=== PATIENT | female | born 1990 | race Caucasian/White ===

== ENCOUNTER 2025-03-29 13:15 | Outpatient (RCR) | payer MEDICAID, SELFPAY ==
[2025-03-14 10:22] VITALS: RESP 16; TEMP 36.6; BMI 18.8
--- NOTE | 2025-03-14 12:22 | PCM.WC.HP ---
History of Present Illness Date of Service: 03/14/25 Chief Complaint: Follow-up on an old coccyx wound History of Wound: Adopted mother states that she is nonverbal nonmobile 34-year-old white female with a long-term opening in her coccyx gluteal fold opening she does have Myles to CD at this time. The area has depth and is no tunneling but does come out on top near her perineal area. Adopted mom states she has been on lots of antibiotics and that there is redness around the wound and she feels it is infected again and would like it rechecked the wound has not really been checked by a doctor for about 2 months when she lost her regular doctor down by their house. Mother and newspaper vendor take care of her 22/03 she does have a low air mattress she does have padding for her seat cushions when she is up in a wheelchair though she is not able to hold herself up at all. Skin turgor looks good she does have history of malnutrition and of iron deficient anemia. Adoptive mom was here mostly for a second opinion because he is getting upset with down by her house the wound care center at that point he has not really done anything and they just keep putting topicals on her. Today we will do wound cultures and also start packing with some Dakin's and see if that helps with the wound but eventually she is cannot probably need a wound VAC. [facility], [facility] Medical History (Updated 03/14/25 @ 12:38 by Jaimee Marshall NP, [facility]) Quadriplegic infantile cerebral palsy Home Medications ?Medication ?Instructions ?Recorded ?Last Taken ?Type acetaminophen 325 mg tablet (Aphen) 325 mg PO Q6H PRN fever or pain 03/14/25 Unknown History albuterol (refill) 90 mcg inhalation 03/14/25 Unknown History mcg/actuation aerosol inhaler amikacin 1,000 mg/4 mL injection 250 mg IM Q12H 03/14/25 Unknown History solution baclofen 50 mcg/mL intrathecal 50 mcg intrathecal Q24H 03/14/25 Unknown History solution diazepam (Valtoco) 15 mg intranasal Q4H 03/14/25 Unknown History diazepam 2 mg tablet 2 mg PO DAILY 03/14/25 Unknown History doxycycline monohydrate 100 mg 100 mg PO BID 03/14/25 Unknown History capsule fluconazole 100 mg tablet 100 mg PO DAILY 03/14/25 Unknown History (Diflucan) fluticasone propionate 50 2 spray intranasal DAILY PRN nasal 03/14/25 Unknown History mcg/actuation nasal congestion spray,suspension (Aller-Kenny) ibuprofen 200 mg tablet (IBU-200) 200 mg PO Q8H 03/14/25 Unknown History levetiracetam 100 mg/mL oral PO 03/14/25 Unknown History solution loratadine 10 mg tablet 10 mg PO DAILY 03/14/25 Unknown History medroxyprogesterone 150 mg/mL 150 mg IM QMONTH 03/14/25 Unknown History intramuscular suspension (Depo-Provera) omeprazole 40 mg capsule,delayed 40 mg PO DAILY 03/14/25 Unknown History release polyethylene glycol 3350 17 17 g PO DAILY 03/14/25 Unknown History gram/dose oral powder (ClearLax) promethazine 12.5 mg rectal 12.5 mg [place] Q6H nausea 03/14/25 Unknown History suppository singular 03/14/25 Unknown History tramadol 50 mg tablet 50 mg PO DAILY 03/14/25 Unknown History Allergy/AdvReac Type Severity Reaction Status Date / Time Penicillins (PCN) AdvReac Blisters Verified 03/14/25 10:49 ROS Constitutional Constitutional: Reports systems reviewed and no addt'l complaints, except as documented Eyes Eyes: Reports systems reviewed and no addt'l complaints, except as documented ENT HEENT: Reports systems reviewed and no addt'l complaints, except as documented Cardiovascular Cardiovascular: Reports systems reviewed and no addt'l complaints, except as documented Respiratory/Chest Respiratory/Chest: Reports systems reviewed and no addt'l complaints, except as documented Gastrointestinal Gastrointestinal: Reports systems reviewed and no addt'l complaints, except as documented Genitourinary Genitourinary: Reports systems reviewed and no addt'l complaints, except as documented Musculoskeletal Musculoskeletal: Reports systems reviewed and no addt'l complaints, except as documented Integumentary Integumentary: Reports wounds and other Details: Open wound in the gluteal fold coccyx area that kind of wraps around and comes up near her perineum Neurologic Neurologic: Reports systems reviewed and no addt'l complaints, except as documented Psychiatric Psychiatric: Reports systems reviewed and no addt'l complaints, except as documented Endocrine Endocrinology: Reports systems reviewed and no addt'l complaints, except as documented Hematologic/Lymphatic Hematologic/Lymphatic: Reports systems reviewed and no addt'l complaints, except as documented Allergic/Immunologic Allergic/Immunologic: Reports systems reviewed and no addt'l complaints, except as documented Vital Signs Vital Signs Vital Signs: 03/14/25 10:22 Temperature 97.8 F Temperature Source Temporal Respiratory Rate 16 Weight Weight: 75 lb 5.547 oz Body Mass Index (BMI) 18.8 Physical Exam Const oriented x3 General Appearance: cooperative Exam Limitations: no limitations HEENT normocephalic Neck General: normal visual inspection Resp normal respiratory effort Effort and Inspection: able to speak in complete sentences Auscultation: clear to auscultation bilaterally Cardio regular rate and regular rhythm Palpation: normal PMI Rate: regular rate Rhythm: regular rhythm GI Palpation: soft and no hepatosplenomegaly external exam normal Back/Spine Cervical Spine: cervical ROM normal Thoracic Spine / Upper Back: normal to inspection Lumbar Spine / Lower Back: normal to inspection Pelvis: buttocks abnormal right (Open wound in the right coccyx gluteal fold area) Extremity General Extremity: normal exam except as noted Skin Wounds: wounds noted Wound Narrative: Open wound with depth in the right gluteal area Debridement Note Debridement Note Wound debrided: Decubitus ulcer right gluteal Laterality: Right Wound Grade/Stage: Stage IV Type of Debridement: Excisional debridement Anesthesia Used: 5% Lidocaine Gel Depth: in the subcutaneous layer and to muscle Percentage of wound debrided: 100 Instrument Used: 5mm curette Tissue Removed: Fibrin Severity: Fat Layer Exposed Amount of bleeding with debridement: Mild Bleeding Controlled with: Compression and gauze Patient tolerated procedure: Patient tolerated procedure well Post-Debridement Measurements and Additional Note: Post-Debridement Measurements/Treatment - Nurse 1 - General Ulcer Assessment Start: 03/14/25 10:21 Freq: Status: Active Protocol: ROYER Activity Type Activity Date Activity User E-sign Co-sign Detail Recorded Client Recorded Date Recorded By Document 03/14/25 10:22 LORI [id number] 03/14/25 10:44 DL 03/14/25 10:22 - Today's Visit Information Type of service Initial Visit Arrival Mode Wheelchair Transfer Assistance Manual Transfer Assist (Other) x2 Patient Identification Verified (Name & Yes ) Patient Requires Transmission-Based No Precautions Height and Weight Height 4 ft 5 in Weight 75 lb 5.547 oz Weight in Pounds 75.3 lbs Body Mass Index (BMI) 18.8 BMI Classification Normal Vital Signs Temperature (97.8 F-99.1 F) 97.8 F Temperature Source Temporal Respiratory Rate (12-18) 16 Respiratory rate source Observation Pain Scale: 0-10 Numeric Is Patient Pain Free? Yes Communication Assessment Preferred language None Able to Read No: NonVerbal Able to Write No: NonVerbal Caregiver Communication Skills Unable To Impairment Follow Commands Teaching Assessment Preferences Verbal,Written, Demonstration Barriers to Learning None Readiness To Learn Poor Willingness to Engage in Self Management Low Activies Readiness to Engage in Self Management Low Activities Anxiety Level Calm Cooperation Cooperative Perception Coherent Interest in Health Problem Asks Questions Education Importance Acknowledges Need Does Patient Smoke tobacco or other No substances Is Patient Diabetic No WC - Nurse 1 - General Ulcer Measurement Start: 03/14/25 10:21 Freq: Status: Active Protocol: Activity Type Activity Date Activity User E-sign Co-sign Detail Recorded Client Recorded Date Recorded By Document 03/14/25 10:22 DL [id number] 03/14/25 10:44 DL 03/14/25 10:22 Wound Center Nurse 1 #1 R Buttocks Cluster -Current Size (cm) - Length 6.6 -Current Size (cm) - Width 4.2 -Current Size (cm) - Depth 1.8 -Total Square Cm 27.72 -Photo Taken Yes -Exudate Amt Medium -Exudate Type Serosanguineous -Wound Margin Distinct, Outline Attached -Granulation Amt Large (67-100%) -Granulation Quality [place] -Necrosis Amt None Present (0 %) -Necrotic Tissue Type Adherent Slough -Structure Exposed N/A -Texture (Makenzie-wound Skin Appearance) Scarring,Rash -Moisture (Makenzie-wound Skin Appearance) No Abnormality -Color (Makenzie-wound Skin Appearance) No Abnormality -Temperature (Makenzie-wound Skin No Abnormality Appearance) (Pt Warm) -Ulcer Cleansing Soap and Water -Foul Odor after Cleansing No -Anesthetic Used 5% Lidocaine Gel - Nurse 2 - General Ulcer CM Notes Start: 03/14/25 10:21 Freq: Status: Active Protocol: Activity Type Activity Date Activity User E-sign Co-sign Detail Recorded Client Recorded Date Recorded By Document 03/14/25 11:06 [facility] [id number] 03/14/25 11:24 [facility] 03/14/25 11:06 Wound Center Nurse 2 -Time 11:06 -Correct Patient Yes -Correct Side, Site, Position Yes -Correct Procedure Yes -Procedure Performed Yes -Type of Procedure Debridement -Clinical Debridement Muscle / Fascia -Tissue Removed Muscle,Fascia -Post Debridement (cm) - Length 5.5 -Post Debridement (cm) - Width 7.5 -Post Debridement (cm) - Depth 2.0 -Total Square (Post) (cm) 41.25 -Area of Debridement (cm) - Length 5.5 -Area of Debridement (cm) - Width 7.5 -Total Square (Area) (cm) 41.25 -Wound/Ulcer Outcome Not Healed -Ulcer Cleansing Rinsed/ Irrigated with Saline -Foul Odor after Cleansing No -Bioengineered Tissue No -Bleeding Controlled with Pressure -Treatment Response Procedure Tolerated Well -Debridement - Muscle / Fascia, 1st Yes 20sq cm -Debridement, Muscle/Fascia, ea addt'l 1 20sq cm or part thereof Pain Scale: 0-10 Numeric Is Patient Pain Free? Yes WC - Nurse 3 - General Ulcer D/C NN Start: 03/14/25 10:21 Freq: Status: Active Protocol: Activity Type Activity Date Activity User E-sign Co-sign Detail Recorded Client Recorded Date Recorded By Document 03/14/25 11:40 ML [id number] 03/14/25 11:42 ML 03/14/25 11:40 Wound Care Center Nurse 3 #1 R Buttocks Cluster -Ulcer Cleansing Soap and Water -Primary Dressing Applied Aquacel Extra, Hysept -Other Dressing dakins 0.25 -Aquacel Extra 1 -Hysept 1 Pain Scale: 0-10 Numeric Is Patient Pain Free? Yes Lab / Micro Data 03/14/25 12:18 03/14/25 12:18 Assessment/Plan Assessment/Plan (1) Decubitus ulcer of right buttock, stage 4: CODE(S): L89.314 - Pressure ulcer of right buttock, stage 4 PLAN: Wash area with antibacterial soap and water and pat dry and then pack wound with Dakin soaked gauze firmly and then on the outside open area she is to use Aquacel extra moistened with Adaptic over top and an absorbent dressing such as ABD this will be done twice a day. Also given samples of Blayne to try and see if she tolerates that and her tube feeds for the increase in protein Lab work will obtain lab work to check for iron levels her complete blood count a comprehensive metabolic profile prealbumin Follow-up in 1 week we will go over everything and see how things are going. (2) Quadriplegic infantile cerebral palsy: CODE(S): G80.8 - Other cerebral palsy PLAN: Continue the turning and care that they are giving now to prevent any more skin breakdowns (3) Incontinence of urine: CODE(S): R32 - Unspecified urinary incontinence QUALIFIERS: Urinary Incontinence type: continuous leakage Qualified Code(s): N39.45 - Continuous leakage PLAN: Patient has a Myles to CD that they are using for her urine output (4) Fecal incontinence: CODE(S): R15.9 - Full incontinence of feces QUALIFIERS: Fecal incontinence type: unspecified Qualified Code(s): R15.9 - Full incontinence of feces PLAN: Adopted mother states she has 1 bowel movement a day they gave her MiraLAX to keep her bowels moving (5) Celiac disease: CODE(S): K90.0 - Celiac disease (6) Milk intolerance: CODE(S): K90.49 - Malabsorption due to intolerance, not elsewhere classified (7) Malnutrition: CODE(S): E46 - Unspecified protein-calorie malnutrition QUALIFIERS: Malnutrition type: protein-calorie malnutrition Protein-calorie malnutrition severity: moderate Qualified Code(s): E44.0 - Moderate protein-calorie malnutrition (8) Anemia: CODE(S): D64.9 - Anemia, unspecified QUALIFIERS: Anemia type: iron deficiency Iron deficiency anemia type: inadequate dietary iron intake Qualified Code(s): D50.8 - Other iron deficiency anemias
--- NOTE | 2025-03-14 12:22 | PCM.WC.HP ---
History of Present Illness Date of Service: 03/14/25 Chief Complaint: Follow-up on an old coccyx wound History of Wound: Adopted mother states that she is nonverbal nonmobile 34-year-old white female with a long-term opening in her coccyx gluteal fold opening she does have Myles to CD at this time. The area has depth and is no tunneling but does come out on top near her perineal area. Adopted mom states she has been on lots of antibiotics and that there is redness around the wound and she feels it is infected again and would like it rechecked the wound has not really been checked by a doctor for about 2 months when she lost her regular doctor down by their house. Mother and sheet rock finisher take care of her 22/03 she does have a low air mattress she does have padding for her seat cushions when she is up in a wheelchair though she is not able to hold herself up at all. Skin turgor looks good she does have history of malnutrition and of iron deficient anemia. Adoptive mom was here mostly for a second opinion because he is getting upset with down by her house the wound care center at that point he has not really done anything and they just keep putting topicals on her. Today we will do wound cultures and also start packing with some Dakin's and see if that helps with the wound but eventually she is cannot probably need a wound VAC. [facility] Medical History (Updated 03/14/25 @ 12:38 by Jaimee Marshall NP, PART TIME RECEPTIONIST-C) Quadriplegic infantile cerebral palsy Home Medications ?Medication ?Instructions ?Recorded ?Last Taken ?Type acetaminophen 325 mg tablet (Aphen) 325 mg PO Q6H PRN fever or pain 03/14/25 Unknown History albuterol (refill) 90 mcg inhalation 03/14/25 Unknown History mcg/actuation aerosol inhaler amikacin 1,000 mg/4 mL injection 250 mg IM Q12H 03/14/25 Unknown History solution baclofen 50 mcg/mL intrathecal 50 mcg intrathecal Q24H 03/14/25 Unknown History solution diazepam (Valtoco) 15 mg intranasal Q4H 03/14/25 Unknown History diazepam 2 mg tablet 2 mg PO DAILY 03/14/25 Unknown History doxycycline monohydrate 100 mg 100 mg PO BID 03/14/25 Unknown History capsule fluconazole 100 mg tablet 100 mg PO DAILY 03/14/25 Unknown History (Diflucan) fluticasone propionate 50 2 spray intranasal DAILY PRN nasal 03/14/25 Unknown History mcg/actuation nasal congestion spray,suspension (Aller-Kenny) ibuprofen 200 mg tablet (IBU-200) 200 mg PO Q8H 03/14/25 Unknown History levetiracetam 100 mg/mL oral PO 03/14/25 Unknown History solution loratadine 10 mg tablet 10 mg PO DAILY 03/14/25 Unknown History medroxyprogesterone 150 mg/mL 150 mg IM QMONTH 03/14/25 Unknown History intramuscular suspension (Depo-Provera) omeprazole 40 mg capsule,delayed 40 mg PO DAILY 03/14/25 Unknown History release polyethylene glycol 3350 17 17 g PO DAILY 03/14/25 Unknown History gram/dose oral powder (ClearLax) promethazine 12.5 mg rectal 12.5 mg MI Q6H nausea 03/14/25 Unknown History suppository singular 03/14/25 Unknown History tramadol 50 mg tablet 50 mg PO DAILY 03/14/25 Unknown History Allergy/AdvReac Type Severity Reaction Status Date / Time Penicillins (PCN) AdvReac Blisters Verified 03/14/25 10:49 ROS Constitutional Constitutional: Reports systems reviewed and no addt'l complaints, except as documented Eyes Eyes: Reports systems reviewed and no addt'l complaints, except as documented ENT HEENT: Reports systems reviewed and no addt'l complaints, except as documented Cardiovascular Cardiovascular: Reports systems reviewed and no addt'l complaints, except as documented Respiratory/Chest Respiratory/Chest: Reports systems reviewed and no addt'l complaints, except as documented Gastrointestinal Gastrointestinal: Reports systems reviewed and no addt'l complaints, except as documented Genitourinary Genitourinary: Reports systems reviewed and no addt'l complaints, except as documented Musculoskeletal Musculoskeletal: Reports systems reviewed and no addt'l complaints, except as documented Integumentary Integumentary: Reports wounds and other Details: Open wound in the gluteal fold coccyx area that kind of wraps around and comes up near her perineum Neurologic Neurologic: Reports systems reviewed and no addt'l complaints, except as documented Psychiatric Psychiatric: Reports systems reviewed and no addt'l complaints, except as documented Endocrine Endocrinology: Reports systems reviewed and no addt'l complaints, except as documented Hematologic/Lymphatic Hematologic/Lymphatic: Reports systems reviewed and no addt'l complaints, except as documented Allergic/Immunologic Allergic/Immunologic: Reports systems reviewed and no addt'l complaints, except as documented Vital Signs Vital Signs Vital Signs: 03/14/25 10:22 Temperature 97.8 F Temperature Source Temporal Respiratory Rate 16 Weight Weight: 75 lb 5.547 oz Body Mass Index (BMI) 18.8 Physical Exam Const oriented x3 General Appearance: cooperative Exam Limitations: no limitations HEENT normocephalic Neck General: normal visual inspection Resp normal respiratory effort Effort and Inspection: able to speak in complete sentences Auscultation: clear to auscultation bilaterally Cardio regular rate and regular rhythm Palpation: normal PMI Rate: regular rate Rhythm: regular rhythm GI Palpation: soft and no hepatosplenomegaly external exam normal Back/Spine Cervical Spine: cervical ROM normal Thoracic Spine / Upper Back: normal to inspection Lumbar Spine / Lower Back: normal to inspection Pelvis: buttocks abnormal right (Open wound in the right coccyx gluteal fold area) Extremity General Extremity: normal exam except as noted Skin Wounds: wounds noted Wound Narrative: Open wound with depth in the right gluteal area Debridement Note Debridement Note Wound debrided: Decubitus ulcer right gluteal Laterality: Right Wound Grade/Stage: Stage IV Type of Debridement: Excisional debridement Anesthesia Used: 5% Lidocaine Gel Depth: in the subcutaneous layer and to muscle Percentage of wound debrided: 100 Instrument Used: 5mm curette Tissue Removed: Fibrin Severity: Fat Layer Exposed Amount of bleeding with debridement: Mild Bleeding Controlled with: Compression and gauze Patient tolerated procedure: Patient tolerated procedure well Post-Debridement Measurements and Additional Note: Post-Debridement Measurements/Treatment - Nurse 1 - General Ulcer Assessment Start: 03/14/25 10:21 Freq: Status: Active Protocol: ROYER Activity Type Activity Date Activity User E-sign Co-sign Detail Recorded Client Recorded Date Recorded By Document 03/14/25 10:22 LORI [id number] 03/14/25 10:44 DL 03/14/25 10:22 - Today's Visit Information Type of service Initial Visit Arrival Mode Wheelchair Transfer Assistance Manual Transfer Assist (Other) x2 Patient Identification Verified (Name & Yes ) Patient Requires Transmission-Based No Precautions Height and Weight Height 4 ft 5 in Weight 75 lb 5.547 oz Weight in Pounds 75.3 lbs Body Mass Index (BMI) 18.8 BMI Classification Normal Vital Signs Temperature (97.8 F-99.1 F) 97.8 F Temperature Source Temporal Respiratory Rate (12-18) 16 Respiratory rate source Observation Pain Scale: 0-10 Numeric Is Patient Pain Free? Yes Communication Assessment Preferred language None Able to Read No: NonVerbal Able to Write No: NonVerbal Caregiver Communication Skills Unable To Impairment Follow Commands Teaching Assessment Preferences Verbal,Written, Demonstration Barriers to Learning None Readiness To Learn Poor Willingness to Engage in Self Management Low Activies Readiness to Engage in Self Management Low Activities Anxiety Level Calm Cooperation Cooperative Perception Coherent Interest in Health Problem Asks Questions Education Importance Acknowledges Need Does Patient Smoke tobacco or other No substances Is Patient Diabetic No WC - Nurse 1 - General Ulcer Measurement Start: 03/14/25 10:21 Freq: Status: Active Protocol: Activity Type Activity Date Activity User E-sign Co-sign Detail Recorded Client Recorded Date Recorded By Document 03/14/25 10:22 DL [id number] 03/14/25 10:44 DL 03/14/25 10:22 Wound Center Nurse 1 #1 R Buttocks Cluster -Current Size (cm) - Length 6.6 -Current Size (cm) - Width 4.2 -Current Size (cm) - Depth 1.8 -Total Square Cm 27.72 -Photo Taken Yes -Exudate Amt Medium -Exudate Type Serosanguineous -Wound Margin Distinct, Outline Attached -Granulation Amt Large (67-100%) -Granulation Quality [place] -Necrosis Amt None Present (0 %) -Necrotic Tissue Type Adherent Slough -Structure Exposed N/A -Texture (Makenzie-wound Skin Appearance) Scarring,Rash -Moisture (Makenzie-wound Skin Appearance) No Abnormality -Color (Makenzie-wound Skin Appearance) No Abnormality -Temperature (Makenzie-wound Skin No Abnormality Appearance) (Pt Warm) -Ulcer Cleansing Soap and Water -Foul Odor after Cleansing No -Anesthetic Used 5% Lidocaine Gel - Nurse 2 - General Ulcer CM Notes Start: 03/14/25 10:21 Freq: Status: Active Protocol: Activity Type Activity Date Activity User E-sign Co-sign Detail Recorded Client Recorded Date Recorded By Document 03/14/25 11:06 [facility] [id number] 03/14/25 11:24 [facility] 03/14/25 11:06 Wound Center Nurse 2 -Time 11:06 -Correct Patient Yes -Correct Side, Site, Position Yes -Correct Procedure Yes -Procedure Performed Yes -Type of Procedure Debridement -Clinical Debridement Muscle / Fascia -Tissue Removed Muscle,Fascia -Post Debridement (cm) - Length 5.5 -Post Debridement (cm) - Width 7.5 -Post Debridement (cm) - Depth 2.0 -Total Square (Post) (cm) 41.25 -Area of Debridement (cm) - Length 5.5 -Area of Debridement (cm) - Width 7.5 -Total Square (Area) (cm) 41.25 -Wound/Ulcer Outcome Not Healed -Ulcer Cleansing Rinsed/ Irrigated with Saline -Foul Odor after Cleansing No -Bioengineered Tissue No -Bleeding Controlled with Pressure -Treatment Response Procedure Tolerated Well -Debridement - Muscle / Fascia, 1st Yes 20sq cm -Debridement, Muscle/Fascia, ea addt'l 1 20sq cm or part thereof Pain Scale: 0-10 Numeric Is Patient Pain Free? Yes WC - Nurse 3 - General Ulcer D/C NN Start: 03/14/25 10:21 Freq: Status: Active Protocol: Activity Type Activity Date Activity User E-sign Co-sign Detail Recorded Client Recorded Date Recorded By Document 03/14/25 11:40 ML [id number] 03/14/25 11:42 ML 03/14/25 11:40 Wound Care Center Nurse 3 #1 R Buttocks Cluster -Ulcer Cleansing Soap and Water -Primary Dressing Applied Aquacel Extra, Hysept -Other Dressing dakins 0.25 -Aquacel Extra 1 -Hysept 1 Pain Scale: 0-10 Numeric Is Patient Pain Free? Yes Lab / Micro Data 03/14/25 12:18 03/14/25 12:18 Assessment/Plan Assessment/Plan (1) Decubitus ulcer of right buttock, stage 4: CODE(S): L89.314 - Pressure ulcer of right buttock, stage 4 PLAN: Wash area with antibacterial soap and water and pat dry and then pack wound with Dakin soaked gauze firmly and then on the outside open area she is to use Aquacel extra moistened with Adaptic over top and an absorbent dressing such as ABD this will be done twice a day. Also given samples of Blayne to try and see if she tolerates that and her tube feeds for the increase in protein Lab work will obtain lab work to check for iron levels her complete blood count a comprehensive metabolic profile prealbumin Follow-up in 1 week we will go over everything and see how things are going. (2) Quadriplegic infantile cerebral palsy: CODE(S): G80.8 - Other cerebral palsy PLAN: Continue the turning and care that they are giving now to prevent any more skin breakdowns (3) Incontinence of urine: CODE(S): R32 - Unspecified urinary incontinence QUALIFIERS: Urinary Incontinence type: continuous leakage Qualified Code(s): N39.45 - Continuous leakage PLAN: Patient has a Myles to CD that they are using for her urine output (4) Fecal incontinence: CODE(S): R15.9 - Full incontinence of feces QUALIFIERS: Fecal incontinence type: unspecified Qualified Code(s): R15.9 - Full incontinence of feces PLAN: Adopted mother states she has 1 bowel movement a day they gave her MiraLAX to keep her bowels moving (5) Celiac disease: CODE(S): K90.0 - Celiac disease (6) Milk intolerance: CODE(S): K90.49 - Malabsorption due to intolerance, not elsewhere classified (7) Malnutrition: CODE(S): E46 - Unspecified protein-calorie malnutrition QUALIFIERS: Malnutrition type: protein-calorie malnutrition Protein-calorie malnutrition severity: moderate Qualified Code(s): E44.0 - Moderate protein-calorie malnutrition (8) Anemia: CODE(S): D64.9 - Anemia, unspecified QUALIFIERS: Anemia type: iron deficiency Iron deficiency anemia type: inadequate dietary iron intake Qualified Code(s): D50.8 - Other iron deficiency anemias
[2025-03-14 12:40] LABS: Hematocrit 39.8 % (37-47); Hemoglobin 12.1 g/dL (12.0-15.0); Immature Granulocytes Count 0.040 X10^3/uL (0.0-0.0); Mean Corp Hgb Conc 30.4 g/dL (32-36); Mean Corpuscular Volume 90.7 fL (81-99); Mean Platelet Vol. 10.4 fl (6.2-12.0); NRBC Flagged by Analyzer 0 % (0-5); Platelet Count 306 K/mm3 (150-450); RBC Distribution Width CV 14.1 % (11.6-14.6); RBC Distribution Width SD 47.1 fl (35.1-43.9); Red Blood Count 4.39 M/mm3 (4.2-5.4); White Blood Count 10.1 K/mm3 (4.4-11.0)
--- NOTE | 2025-03-14 12:50 | RAD_ITS ---
EXAM: XR Right Hip With Pelvis When Performed, 2 or 3 Views CLINICAL INDICATION: RBUTTOCK WOUND/R/O OSTEOMYELITIS TECHNIQUE: Two or three views of the right hip with pelvis when performed. COMPARISON: No relevant prior studies available. FINDINGS: BONES/JOINTS: No obvious radiographic evidence of osteomyelitis. However, if clinical suspicion remains high, further evaluation with 3 phase bone scan or MRI is recommended. No acute fracture. No dislocation. No erosive changes to the osseous structures. SOFT TISSUES: Soft tissue swelling. RAD/HIP, UNI W/ Pelvis 2-3 Views IMPRESSION: No obvious radiographic evidence of osteomyelitis. However, if clinical suspici on remains high, further evaluation with 3 phase bone scan or MRI is recommended. Reading Location: [facility]
--- NOTE | 2025-03-14 12:50 | RAD_ITS ---
EXAM: XR Right Hip With Pelvis When Performed, 2 or 3 Views CLINICAL INDICATION: RBUTTOCK WOUND/R/O OSTEOMYELITIS TECHNIQUE: Two or three views of the right hip with pelvis when performed. COMPARISON: No relevant prior studies available. FINDINGS: BONES/JOINTS: No obvious radiographic evidence of osteomyelitis. However, if clinical suspicion remains high, further evaluation with 3 phase bone scan or MRI is recommended. No acute fracture. No dislocation. No erosive changes to the osseous structures. SOFT TISSUES: Soft tissue swelling. RAD/HIP, UNI W/ Pelvis 2-3 Views IMPRESSION: No obvious radiographic evidence of osteomyelitis. However, if clinical suspici on remains high, further evaluation with 3 phase bone scan or MRI is recommended. Reading Location[facility] [place]
[2025-03-14 13:23] LABS: AST(SGOT) 21 U/L (<=31); Alanine Aminotransfer ALT/SGPT 24 U/L (<=34); Albumin, Serum 3.9 g/dL (3.5-5.0); Alkaline Phosphatase 197 U/L (35-104); Anion Gap 11 (5-15); BUN 15 mg/dL (4-19); BUN/Creat Ratio 52.7 RATIO (10-20); Calcium,Total 9.5 mg/dL (7.6-11.0); Carbon Dioxide 31.1 mmol/L (21.0-32.0); Chloride 102 mmol/L (98-108); Estimated Creatinine Clearance 152.75 ml/min (50-250); Ferritin 21 ng/mL (22-378); Globulin 3.3 g/dL (2.2-4.2); Glucose 94 mg/dL (70-99); Iron 37 ug/dL (50-170); Iron Binding Capacity,Total 373 ug/dL (250-450); Iron Binding Capacity,Unsat 336 ug/dL (228-428); Potassium 3.9 mmol/L (3.3-5.1)
--- NOTE | 2025-03-14 14:26 | WC ---
PHOTO 03/14/25 RIGHT BUTTOCK CLUSTER
--- NOTE | 2025-03-14 14:26 | WC ---
PHOTO 03/14/25 RIGHT BUTTOCK CLUSTER
--- NOTE | 2025-03-14 14:29 | WC ---
PHOTO 03/14/25 RIGHT BUTTOCK CLUSTER
--- NOTE | 2025-03-14 14:29 | WC ---
PHOTO 03/14/25 RIGHT BUTTOCK CLUSTER
[2025-03-15 05:07] LABS: Prealbumin 24 mg/dL (14-35)
--- NOTE | 2025-03-15 15:45 | WC ---
nicolasa quiros reviewed xray results. nno at this time. no radiographic evidence of osteo. pt's mom Peg who is primary caregiver, notified at this time.
--- NOTE | 2025-03-15 15:45 | WC ---
nciolasa quiros reviewed xray results. nno at this time. no radiographic evidence of osteo. pt's mom Peg who is primary caregiver, notified at this time.
--- NOTE | 2025-03-20 13:08 | WC ---
nicolasa credentials specialist reviewed pts wound cx results. n.o. to start cefdinir oral liquid. allergies reviewed. pt's mom who is the primary caregiver notified and requested rx be called [facility]. done.
--- NOTE | 2025-03-20 13:08 | WC ---
nicolasa pig sticker reviewed pts wound cx results. n.o. to start cefdinir oral liquid. allergies reviewed. pt's mom who is the primary caregiver notified and requested rx be called [facility]. done.
[2025-03-22 13:26] VITALS: BP 98/61; PULSE 100; RESP 18; TEMP 36.4; BMI 18.8
--- NOTE | 2025-03-22 16:02 | PN.PCM_ITS ---
History of Present Illness Date of Service: 03/22/25 Chief Complaint: R buttock pressure ulceration History of Wound: Marcia Daniel is a 34 y/o female with cerebral palsy who is nonverbal and nonmobile, she has full care from her adoptive mother, Peg, who is present at her appointment today. She saw Jaimee to establish care at the wound center last week; however, due to scheduling difficulties will be transitioning to my care. Peg tells me that she has had this ulceration to some extent for the past ~7 years. They have had wound care previously at a different clinic close to their home but recently decided to change to seek a different approach. She reports around year 2 of the wound a wound vac was tried, but it sounds like there was difficulty maintaining good seal. She reports through the years they have consulted with 4 different surgeons to consider surgical management but each time have opted to continue nonsurgical efforts. She reports that there has never been any known associated fistula; she has never seen any fecal matter or drainage in/around the wound. Patient does not have any history of diverticulitis/colocutaneous fistulas, pilonidal cysts or similar conditions. She reports no foul odor or thick/purulent drainage recently. She reports that Marcia has been on IV antibiotics for this ulceration in the past with PICC/midlines; there was consideration of a port but she was felt to be too high risk for infection with this. 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 though no recent flares in the last year. She does have a low air loss mattress and robust padding in her wheelchair but she is completely nonambulatory. She has a history of malnutrition (relies on feeding tube for nutrition), urine incontinence (she has a long-term sage catheter), fecal incontinence (averages 1 BM per day, Peg reports this is managed quickly to prevent soiling of the wound) iron deficiency anemia, and gall bladder and kidney issues per report. She is currently between PCPs but re-establishing care with an old PCP in April. At last visit here, Jaimee obtained wound cultures and started patient on Cefdinir x 2 weeks per sensitivity results. Peg states they just started these antibiotics yesterday, so far she seems to be tolerating them well. Objective Data Objective Data Vital Signs: Vital Signs Temp Pulse Resp BP 97.6 F L 100 18 98/61 03/22/25 13:26 03/22/25 13:26 03/22/25 13:26 03/22/25 13:26 Weight: 75 lb 5.547 oz Body Mass Index (BMI) 18.8 Lab / Micro Data 03/14/25 12:18 03/14/25 12:18 Micro: Microbiology 03/14/25 14:21 Wound - Buttock Gram Stain - Final 03/14/25 14:21 Wound - Buttock Wound Culture - Final Klebsiella aerogenes Enterococcus faecalis 03/14/25 14:21 Wound - Buttock Anaerobic Culture - Final Anaerobic cocci Prevotella bivia Charges/Coding Visit Charges Office Visits / Consults: 21508 OV L3 New 30min Procedures Integumentary [id number]: [id number] Linda musc/fascia 20 sq cm/< (26.25 sqcm) Physical Exam Const alert Constitutional Narrative: Nonverbal Resp normal respiratory effort Resp Narrative: O2 supplementation via NC Skin Wound Narrative: R buttock pressure ulceration cluster; Proximal ulcer in the cluster near coccyx with depth, taps to bone which is hard and viable in appearance; with probing no apparent tracking; do not appreciate any foul odor, purulent or feculent drainage; no surrounding excess warmth, fluctuance, induration; wound base appears granular and pink. Distal cluster is more superficial into the subcutaneous tissue with pink/red base without significant drainage/excess warmth/fluctuance/induration. 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 Debridement Note Debridement Note Wound debrided: Decubitus ulcer right gluteal Laterality: Right Wound Grade/Stage: Stage IV Type of Debridement: Excisional debridement Anesthesia Used: 5% Lidocaine Gel Depth: to muscle Percentage of wound debrided: 100 Instrument Used: 5mm curette Tissue Removed: Fibrin slough, devitalized tissue Severity: Fat Layer Exposed Amount of bleeding with debridement: Mild Bleeding Controlled with: Compression and gauze Patient tolerated procedure: Patient tolerated procedure well Post-Debridement Measurements and Additional Note: Post-Debridement Measurements/Treatment WC - Nurse 1 - General Ulcer Assessment Start: 03/14/25 10:21 Freq: Status: Active Protocol: ROYER Activity Type Activity Date Activity User E-sign Co-sign Detail Recorded Client Recorded Date Recorded By Document 03/14/25 10:22 DL [id number] 03/14/25 10:44 DL Document 03/22/25 13:26 DL [id number] 03/22/25 13:40 DL 03/14/25 03/22/25 10:22 13:26 WC - Today's Visit Information Type of service Initial Visit Follow-up Visit (Physician/MEAT [facility]ER ) Arrival Mode Wheelchair Wheelchair Transfer Assistance Manual Slade Lift Transfer Assist (Other) x2 Patient Identification Verified (Name & Yes Yes ) Patient Requires Transmission-Based No No Precautions Height and Weight Height 4 ft 5 in Weight 75 lb 5.547 oz Weight in Pounds 75.3 lbs Body Mass Index (BMI) 18.8 18.8 BMI Classification Normal Normal Vital Signs Temperature (97.8 F-99.1 F) 97.8 F 97.6 F L Temperature Source Temporal Temporal Pulse Rate (60-100) 100 Pulse Location Monitor Respiratory Rate (12-18) 16 18 Respiratory rate source Observation Observation Blood Pressure (90/60-120/80) 98/61 Blood Pressure Mean (mm Hg) 73 Source Monitor History Since Last Visit- (Skip if this is Patient's initial visit) Have you changed medications since your No last visit? Any new allergies or adverse reactions No Had a fall/change in ADL's that may No increase risk of falls Signs or symptoms of abuse and/or No neglect since last visit Have you been in the hospital since your No last visit? Has dressing in place as prescribed Yes Has compression in place as prescribed N/A Has offloadiing in place as prescribed Yes Experienced any changes in pain level or No management Pain Scale: 0-10 Numeric Is Patient Pain Free? Yes Yes Communication Assessment Preferred language None Able to Read No: NonVerbal Able to Write No: NonVerbal Caregiver Communication Skills Unable To Impairment Follow Commands Teaching Assessment Preferences Verbal,Written, Demonstration Barriers to Learning None Readiness To Learn Poor Willingness to Engage in Self Management Low Activies Readiness to Engage in Self Management Low Activities Anxiety Level Calm Cooperation Cooperative Perception Coherent Interest in Health Problem Asks Questions Education Importance Acknowledges Need Does Patient Smoke tobacco or other No substances Is Patient Diabetic No WC - Nurse 1 - General Ulcer Measurement Start: 03/14/25 10:21 Freq: Status: Active Protocol: Activity Type Activity Date Activity User E-sign Co-sign Detail Recorded Client Recorded Date Recorded By Document 03/14/25 10:22 DL [id number] 03/14/25 10:44 DL Document 03/22/25 13:26 DL [id number] 03/22/25 13:40 DL 03/14/25 03/22/25 10:22 13:26 Wound Center Nurse 1 #1 R Buttocks Cluster -Current Size (cm) - Length 6.6 7 -Current Size (cm) - Width 4.2 2.5 -Current Size (cm) - Depth 1.8 1.8 -Total Square Cm 27.72 17.5 -Photo Taken Yes -Exudate Amt Medium Small -Exudate Type Serosanguineous Serosanguineous -Wound Margin Distinct, Distinct, Outline Outline Attached Attached -Granulation Amt Large (67-100%) Large (67-100%) -Granulation Quality [place],Red -Necrosis Amt None Present (0 None Present (0 %) %) -Necrotic Tissue Type Adherent Slough -Structure Exposed N/A N/A -Texture (Makenzie-wound Skin Appearance) Scarring,Rash Scarring -Moisture (Makenzie-wound Skin Appearance) No Abnormality No Abnormality -Color (Makenzie-wound Skin Appearance) No Abnormality No Abnormality -Temperature (Makenzie-wound Skin No Abnormality No Abnormality Appearance) (Pt Warm) (Pt Warm) -Tenderness on Palpation (Makenzie-wound No Skin Appearance) -Ulcer Cleansing Soap and Water Soap and Water -Foul Odor after Cleansing No No -Anesthetic Used 5% Lidocaine 4% Lidocaine Gel Solution WC - Nurse 2 - General Ulcer CM Notes Start: 03/14/25 10:21 Freq: Status: Active Protocol: Activity Type Activity Date Activity User E-sign Co-sign Detail Recorded Client Recorded Date Recorded By Document 03/14/25 11:06 [facility] [id number] 03/14/25 11:24 [facility] Document 03/22/25 13:50 DS [id number] 03/22/25 14:03 DS 03/14/25 03/22/25 11:06 13:50 Wound Center Nurse 2 #1 R Buttocks Cluster -Time 11:06 13:55 -Correct Patient Yes Yes -Correct Side, Site, Position Yes Yes -Correct Procedure Yes Yes -Procedure Performed Yes Yes -Type of Procedure Debridement Debridement -Clinical Debridement Muscle / Fascia Muscle / Fascia -Tissue Removed Muscle,Fascia Muscle,Fascia -Post Debridement (cm) - Length 5.5 3.5 -Post Debridement (cm) - Width 7.5 7.5 -Post Debridement (cm) - Depth 2.0 3.3 -Total Square (Post) (cm) 41.25 26.25 -Area of Debridement (cm) - Length 5.5 3.5 -Area of Debridement (cm) - Width 7.5 7.5 -Total Square (Area) (cm) 41.25 26.25 -Tunneling No -Undermining/Tunneling No -Circular Undermining No -Wound/Ulcer Outcome Not Healed Not Healed -Ulcer Cleansing Rinsed/ Rinsed/ Irrigated with Irrigated with Saline Saline -Foul Odor after Cleansing No No -Bioengineered Tissue No No -Bleeding Controlled with Pressure Pressure -Treatment Response Procedure Procedure Tolerated Well Tolerated Well -Debridement - Muscle / Fascia, 1st Yes Yes 20sq cm -Debridement, Muscle/Fascia, ea addt'l 1 1 20sq cm or part thereof Pain Scale: 0-10 Numeric Is Patient Pain Free? Yes Yes - Nurse 3 - General Ulcer D/C NN Start: 03/14/25 10:21 Freq: Status: Active Protocol: Activity Type Activity Date Activity User E-sign Co-sign Detail Recorded Client Recorded Date Recorded By Document 03/14/25 11:40 ML [id number] 03/14/25 11:42 ML Document 03/22/25 15:51 [facility] [id number] 03/22/25 15:52 [facility] 03/14/25 03/22/25 11:40 15:51 Wound Care Center Nurse 3 #1 R Buttocks Cluster -Ulcer Cleansing Soap and Water Rinsed/ Irrigated with Saline -Foul Odor after Cleansing No -Primary Dressing Applied Aquacel Extra, Aquacel Extra Hysept -Other Dressing dakins 0.25 dakins to wound w/ depth, aquacel extra to proximal area, -Primary Dressing Covered/Secured with Secured with Tape -Other Covering abd pad; atb oint to makenzie wound -Aquacel Extra 1 1 -Hysept 1 Treatment Response Procedure Tolerated Well Pain Scale: 0-10 Numeric Is Patient Pain Free? Yes Yes - Visit Discharge Discharge Condition Stable Ambulatory Status Wheelchair Transportation Private Auto Accompanied by mom who is her caregiver Assessment/Plan Assessment/Plan (1) Decubitus ulcer of right buttock, stage 4: CODE(S): L89.314 - Pressure ulcer of right buttock, 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: CODE(S): G80.8 - Other cerebral palsy (3) Incontinence of urine: CODE(S): R32 - Unspecified urinary incontinence QUALIFIERS: Urinary Incontinence type: continuous leakage Q ualified Code(s): N39.45 - Continuous leakage (4) Fecal incontinence: CODE(S): R15.9 - Full incontinence of feces QUALIFIERS: Fecal incontinence type: unspecified Qualified Code(s): R15.9 - Full incontinence of feces (5) Celiac disease: CODE(S): K90.0 - Celiac disease (6) Milk intolerance: CODE(S): K90.49 - Malabsorption due to intolerance, not elsewhere classified (7) Malnutrition: CODE(S): E46 - Unspecified protein-calorie malnutrition QUALIFIERS: Malnutrition type: protein-calorie malnutrition P rotein-calorie malnutrition severity: moderate Qualified Code(s): E44.0 - Moderate protein-calorie malnutrition (8) Anemia: CODE(S): D64.9 - Anemia, unspecified QUALIFIERS: Anemia type: iron deficiency Iron deficiency anemia type: inadequate dietary iron intake Qualified Code(s): D50.8 - Other iron deficiency anemias PLAN: Plan I reviewed labs that were ordered last week. Hgb low normal at 12.2; iron deficiency noted. Elevated BUN with low Creatinine and normal GFR. Elevated Alk phos with normal AST/ALT. Prealbumin normal. WBC normal. Unclear if these elevations are chronic as I have no prior labs for comparison. Will request most recent labs from prior wound center to compare and consider repeating to trend. Advised iron supplementation. Continue Cefdinir; she had XR which did not suggest bone involvement but given chronic bone exposure will likely plan to treat for 4-6 weeks to cover for possible osteo as long as antibiotics are well-tolerated. If there is concern for ongoing/worsening infection then would plan for ID referral for their evaluation/management. For wound care continue: (1) Wash the area with antibacterial soap and water, pat to dry (2) Pack wound with Dakins-soaked gauze (3) Apply Aquacel extra to the superficial portions (4) Cover with ABD or other absorbent dressing such as super absorber (5) Change twice daily or more often as needed to keep clean. Given the depth of the wound I think it would be worth trying a wound vac again, Peg agrees. Will submit to insurance for wound vac. Continue Blayne supplementation. Continue offloading efforts with frequent turns, at least every 2 hours. Plan for return to the office in 1 week, call sooner with concerns.
--- NOTE | 2025-03-22 16:02 | PN.PCM_ITS ---
History of Present Illness Date of Service: 03/22/25 Chief Complaint: R buttock pressure ulceration History of Wound: Marcia Daniel is a 34 y/o female with cerebral palsy who is nonverbal and nonmobile, she has full care from her adoptive mother, Peg, who is present at her appointment today. She saw Jaimee to establish care at the wound center last week; however, due to scheduling difficulties will be transitioning to my care. Peg tells me that she has had this ulceration to some extent for the past ~7 years. They have had wound care previously at a different clinic close to their home but recently decided to change to seek a different approach. She reports around year 2 of the wound a wound vac was tried, but it sounds like there was difficulty maintaining good seal. She reports through the years they have consulted with 4 different surgeons to consider surgical management but each time have opted to continue nonsurgical efforts. She reports that there has never been any known associated fistula; she has never seen any fecal matter or drainage in/around the wound. Patient does not have any history of diverticulitis/colocutaneous fistulas, pilonidal cysts or similar conditions. She reports no foul odor or thick/purulent drainage recently. She reports that Marcia has been on IV antibiotics for this ulceration in the past with PICC/midlines; there was consideration of a port but she was felt to be too high risk for infection with this. 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 though no recent flares in the last year. She does have a low air loss mattress and robust padding in her wheelchair but she is completely nonambulatory. She has a history of malnutrition (relies on feeding tube for nutrition), urine incontinence (she has a long-term sage catheter), fecal incontinence (averages 1 BM per day, Peg reports this is managed quickly to prevent soiling of the wound) iron deficiency anemia, and gall bladder and kidney issues per report. She is currently between PCPs but re-establishing care with an old PCP in April. At last visit here, Jaimee obtained wound cultures and started patient on Cefdinir x 2 weeks per sensitivity results. Peg states they just started these antibiotics yesterday, so far she seems to be tolerating them well. Objective Data Objective Data Vital Signs: Vital Signs Temp Pulse Resp BP 97.6 F L 100 18 98/61 03/22/25 13:26 03/22/25 13:26 03/22/25 13:26 03/22/25 13:26 Weight: 75 lb 5.547 oz Body Mass Index (BMI) 18.8 Lab / Micro Data 03/14/25 12:18 03/14/25 12:18 Micro: Microbiology 03/14/25 14:21 Wound - Buttock Gram Stain - Final 03/14/25 14:21 Wound - Buttock Wound Culture - Final Klebsiella aerogenes Enterococcus faecalis 03/14/25 14:21 Wound - Buttock Anaerobic Culture - Final Anaerobic cocci Prevotella bivia Charges/Coding Visit Charges Office Visits / Consults: 15851 OV L3 New 30min Procedures Integumentary [id number]: [id number] Linda musc/fascia 20 sq cm/< (26.25 sqcm) Physical Exam Const alert Constitutional Narrative: Nonverbal Resp normal respiratory effort Resp Narrative: O2 supplementation via NC Skin Wound Narrative: R buttock pressure ulceration cluster; Proximal ulcer in the cluster near coccyx with depth, taps to bone which is hard and viable in appearance; with probing no apparent tracking; do not appreciate any foul odor, purulent or feculent drainage; no surrounding excess warmth, fluctuance, induration; wound base appears granular and pink. Distal cluster is more superficial into the subcutaneous tissue with pink/red base without significant drainage/excess warmth/fluctuance/induration. 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 Debridement Note Debridement Note Wound debrided: Decubitus ulcer right gluteal Laterality: Right Wound Grade/Stage: Stage IV Type of Debridement: Excisional debridement Anesthesia Used: 5% Lidocaine Gel Depth: to muscle Percentage of wound debrided: 100 Instrument Used: 5mm curette Tissue Removed: Fibrin slough, devitalized tissue Severity: Fat Layer Exposed Amount of bleeding with debridement: Mild Bleeding Controlled with: Compression and gauze Patient tolerated procedure: Patient tolerated procedure well Post-Debridement Measurements and Additional Note: Post-Debridement Measurements/Treatment WC - Nurse 1 - General Ulcer Assessment Start: 03/14/25 10:21 Freq: Status: Active Protocol: ROYER Activity Type Activity Date Activity User E-sign Co-sign Detail Recorded Client Recorded Date Recorded By Document 03/14/25 10:22 DL [id number] 03/14/25 10:44 DL Document 03/22/25 13:26 DL [id number] 03/22/25 13:40 DL 03/14/25 03/22/25 10:22 13:26 WC - Today's Visit Information Type of service Initial Visit Follow-up Visit (Physician/GERMAN PROFESSOR ) Arrival Mode Wheelchair Wheelchair Transfer Assistance Manual Slade Lift Transfer Assist (Other) x2 Patient Identification Verified (Name & Yes Yes ) Patient Requires Transmission-Based No No Precautions Height and Weight Height 4 ft 5 in Weight 75 lb 5.547 oz Weight in Pounds 75.3 lbs Body Mass Index (BMI) 18.8 18.8 BMI Classification Normal Normal Vital Signs Temperature (97.8 F-99.1 F) 97.8 F 97.6 F L Temperature Source Temporal Temporal Pulse Rate (60-100) 100 Pulse Location Monitor Respiratory Rate (12-18) 16 18 Respiratory rate source Observation Observation Blood Pressure (90/60-120/80) 98/61 Blood Pressure Mean (mm Hg) 73 Source Monitor History Since Last Visit- (Skip if this is Patient's initial visit) Have you changed medications since your No last visit? Any new allergies or adverse reactions No Had a fall/change in ADL's that may No increase risk of falls Signs or symptoms of abuse and/or No neglect since last visit Have you been in the hospital since your No last visit? Has dressing in place as prescribed Yes Has compression in place as prescribed N/A Has offloadiing in place as prescribed Yes Experienced any changes in pain level or No management Pain Scale: 0-10 Numeric Is Patient Pain Free? Yes Yes Communication Assessment Preferred language None Able to Read No: NonVerbal Able to Write No: NonVerbal Caregiver Communication Skills Unable To Impairment Follow Commands Teaching Assessment Preferences Verbal,Written, Demonstration Barriers to Learning None Readiness To Learn Poor Willingness to Engage in Self Management Low Activies Readiness to Engage in Self Management Low Activities Anxiety Level Calm Cooperation Cooperative Perception Coherent Interest in Health Problem Asks Questions Education Importance Acknowledges Need Does Patient Smoke tobacco or other No substances Is Patient Diabetic No WC - Nurse 1 - General Ulcer Measurement Start: 03/14/25 10:21 Freq: Status: Active Protocol: Activity Type Activity Date Activity User E-sign Co-sign Detail Recorded Client Recorded Date Recorded By Document 03/14/25 10:22 DL [id number] 03/14/25 10:44 DL Document 03/22/25 13:26 DL [id number] 03/22/25 13:40 DL 03/14/25 03/22/25 10:22 13:26 Wound Center Nurse 1 #1 R Buttocks Cluster -Current Size (cm) - Length 6.6 7 -Current Size (cm) - Width 4.2 2.5 -Current Size (cm) - Depth 1.8 1.8 -Total Square Cm 27.72 17.5 -Photo Taken Yes -Exudate Amt Medium Small -Exudate Type Serosanguineous Serosanguineous -Wound Margin Distinct, Distinct, Outline Outline Attached Attached -Granulation Amt Large (67-100%) Large (67-100%) -Granulation Quality [place],Red -Necrosis Amt None Present (0 None Present (0 %) %) -Necrotic Tissue Type Adherent Slough -Structure Exposed N/A N/A -Texture (Makenzie-wound Skin Appearance) Scarring,Rash Scarring -Moisture (Makenzie-wound Skin Appearance) No Abnormality No Abnormality -Color (Makenzie-wound Skin Appearance) No Abnormality No Abnormality -Temperature (Makenzie-wound Skin No Abnormality No Abnormality Appearance) (Pt Warm) (Pt Warm) -Tenderness on Palpation (Makenzie-wound No Skin Appearance) -Ulcer Cleansing Soap and Water Soap and Water -Foul Odor after Cleansing No No -Anesthetic Used 5% Lidocaine 4% Lidocaine Gel Solution WC - Nurse 2 - General Ulcer CM Notes Start: 03/14/25 10:21 Freq: Status: Active Protocol: Activity Type Activity Date Activity User E-sign Co-sign Detail Recorded Client Recorded Date Recorded By Document 03/14/25 11:06 [facility] [id number] 03/14/25 11:24 [facility] Document 03/22/25 13:50 DS [id number] 03/22/25 14:03 DS 03/14/25 03/22/25 11:06 13:50 Wound Center Nurse 2 #1 R Buttocks Cluster -Time 11:06 13:55 -Correct Patient Yes Yes -Correct Side, Site, Position Yes Yes -Correct Procedure Yes Yes -Procedure Performed Yes Yes -Type of Procedure Debridement Debridement -Clinical Debridement Muscle / Fascia Muscle / Fascia -Tissue Removed Muscle,Fascia Muscle,Fascia -Post Debridement (cm) - Length 5.5 3.5 -Post Debridement (cm) - Width 7.5 7.5 -Post Debridement (cm) - Depth 2.0 3.3 -Total Square (Post) (cm) 41.25 26.25 -Area of Debridement (cm) - Length 5.5 3.5 -Area of Debridement (cm) - Width 7.5 7.5 -Total Square (Area) (cm) 41.25 26.25 -Tunneling No -Undermining/Tunneling No -Circular Undermining No -Wound/Ulcer Outcome Not Healed Not Healed -Ulcer Cleansing Rinsed/ Rinsed/ Irrigated with Irrigated with Saline Saline -Foul Odor after Cleansing No No -Bioengineered Tissue No No -Bleeding Controlled with Pressure Pressure -Treatment Response Procedure Procedure Tolerated Well Tolerated Well -Debridement - Muscle / Fascia, 1st Yes Yes 20sq cm -Debridement, Muscle/Fascia, ea addt'l 1 1 20sq cm or part thereof Pain Scale: 0-10 Numeric Is Patient Pain Free? Yes Yes - Nurse 3 - General Ulcer D/C NN Start: 03/14/25 10:21 Freq: Status: Active Protocol: Activity Type Activity Date Activity User E-sign Co-sign Detail Recorded Client Recorded Date Recorded By Document 03/14/25 11:40 ML [id number] 03/14/25 11:42 ML Document 03/22/25 15:51 [facility] [id number] 03/22/25 15:52 [facility] 03/14/25 03/22/25 11:40 15:51 Wound Care Center Nurse 3 #1 R Buttocks Cluster -Ulcer Cleansing Soap and Water Rinsed/ Irrigated with Saline -Foul Odor after Cleansing No -Primary Dressing Applied Aquacel Extra, Aquacel Extra Hysept -Other Dressing dakins 0.25 dakins to wound w/ depth, aquacel extra to proximal area, -Primary Dressing Covered/Secured with Secured with Tape -Other Covering abd pad; atb oint to makenzie wound -Aquacel Extra 1 1 -Hysept 1 Treatment Response Procedure Tolerated Well Pain Scale: 0-10 Numeric Is Patient Pain Free? Yes Yes - Visit Discharge Discharge Condition Stable Ambulatory Status Wheelchair Transportation Private Auto Accompanied by mom who is her caregiver Assessment/Plan Assessment/Plan (1) Decubitus ulcer of right buttock, stage 4: CODE(S): L89.314 - Pressure ulcer of right buttock, 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: CODE(S): G80.8 - Other cerebral palsy (3) Incontinence of urine: CODE(S): R32 - Unspecified urinary incontinence QUALIFIERS: Urinary Incontinence type: continuous leakage Q ualified Code(s): N39.45 - Continuous leakage (4) Fecal incontinence: CODE(S): R15.9 - Full incontinence of feces QUALIFIERS: Fecal incontinence type: unspecified Qualified Code(s): R15.9 - Full incontinence of feces (5) Celiac disease: CODE(S): K90.0 - Celiac disease (6) Milk intolerance: CODE(S): K90.49 - Malabsorption due to intolerance, not elsewhere classified (7) Malnutrition: CODE(S): E46 - Unspecified protein-calorie malnutrition QUALIFIERS: Malnutrition type: protein-calorie malnutrition P rotein-calorie malnutrition severity: moderate Qualified Code(s): E44.0 - Moderate protein-calorie malnutrition (8) Anemia: CODE(S): D64.9 - Anemia, unspecified QUALIFIERS: Anemia type: iron deficiency Iron deficiency anemia type: inadequate dietary iron intake Qualified Code(s): D50.8 - Other iron deficiency anemias PLAN: Plan I reviewed labs that were ordered last week. Hgb low normal at 12.2; iron deficiency noted. Elevated BUN with low Creatinine and normal GFR. Elevated Alk phos with normal AST/ALT. Prealbumin normal. WBC normal. Unclear if these elevations are chronic as I have no prior labs for comparison. Will request most recent labs from prior wound center to compare and consider repeating to trend. Advised iron supplementation. Continue Cefdinir; she had XR which did not suggest bone involvement but given chronic bone exposure will likely plan to treat for 4-6 weeks to cover for possible osteo as long as antibiotics are well-tolerated. If there is concern for ongoing/worsening infection then would plan for ID referral for their evaluation/management. For wound care continue: (1) Wash the area with antibacterial soap and water, pat to dry (2) Pack wound with Dakins-soaked gauze (3) Apply Aquacel extra to the superficial portions (4) Cover with ABD or other absorbent dressing such as super absorber (5) Change twice daily or more often as needed to keep clean. Given the depth of the wound I think it would be worth trying a wound vac again, Peg agrees. Will submit to insurance for wound vac. Continue Blayne supplementation. Continue offloading efforts with frequent turns, at least every 2 hours. Plan for return to the office in 1 week, call sooner with concerns.
[2025-03-29 13:30] VITALS: BP 111/79; PULSE 106; RESP 18; TEMP 36.3; BMI 18.8
--- NOTE | 2025-03-29 15:36 | PCM.WC.PN ---
History of Present Illness Date of Service: 03/30/25 Chief Complaint: R buttock pressure ulceration History of Wound: Marcia Daniel is a 34 y/o female with cerebral palsy who is nonverbal and nonmobile, she has full care from her adoptive mother, Peg, who is present at her appointment today. She saw Jaimee to establish care at the wound center last week; however, due to scheduling difficulties will be transitioning to my care. Peg tells me that she has had this ulceration to some extent for the past ~7 years. They have had wound care previously at a different clinic close to their home but recently decided to change to seek a different approach. She reports around year 2 of the wound a wound vac was tried, but it sounds like there was difficulty maintaining good seal. She reports through the years they have consulted with 4 different surgeons to consider surgical management but each time have opted to continue nonsurgical efforts. She reports that there has never been any known associated fistula; she has never seen any fecal matter or drainage in/around the wound. Patient does not have any history of diverticulitis/colocutaneous fistulas, pilonidal cysts or similar conditions. She reports no foul odor or thick/purulent drainage recently. She reports that Marcia has been on IV antibiotics for this ulceration in the past with PICC/midlines; there was consideration of a port but she was felt to be too high risk for infection with this. 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 though no recent flares in the last year. She does have a low air loss mattress and robust padding in her wheelchair but she is completely nonambulatory. She has a history of malnutrition (relies on feeding tube for nutrition), urine incontinence (she has a long-term sage catheter), fecal incontinence (averages 1 BM per day, Peg reports this is managed quickly to prevent soiling of the wound) iron deficiency anemia, and gall bladder and kidney issues per report. She is currently between PCPs but re-establishing care with an old PCP in April. Subjective Subjective Peg reports that a few days ago, Marcia was flushed, tachycardic, and seemed to have increased work of breathing; she ended up determining these symptoms occurred shortly after a Cefdinir dose, she gave Benadryl and the symptoms resolved so she has determined it to be an allergy to the cefdinir. Since stopping the cefdinir, no recurrence of these symptoms. She reports she seems to be doing much better and is back to her baseline. She reports no fevers, chills. She feels the wound is looking a bit better, she has been performing wound care as discussed. The wound vac was approved and is scheduled to be delivered to her house tomorrow. Objective Data Objective Data Vital Signs: Vital Signs Temp Pulse Resp BP O2 Del Method 97.3 F L 106 H 18 111/79 Room Air 03/29/25 13:30 03/29/25 13:30 03/29/25 13:30 03/29/25 13:30 03/29/25 13:30 Oxygen Delivery Method Room Air Weight: 75 lb 5.547 oz Body Mass Index (BMI) 18.8 Lab / Micro Data 03/14/25 12:18 03/14/25 12:18 Micro: Microbiology 03/14/25 14:21 Wound - Buttock Gram Stain - Final 03/14/25 14:21 Wound - Buttock Wound Culture - Final Klebsiella aerogenes Enterococcus faecalis 03/14/25 14:21 Wound - Buttock Anaerobic Culture - Final Anaerobic cocci Prevotella bivia Charges/Coding Visit Charges Office Visits / Consults: 68942 OV L3 Est 20min Physical Exam Const alert Constitutional Narrative: Nonverbal Resp normal respiratory effort Resp Narrative: O2 supplementation via NC Skin Wound Narrative: R buttock pressure ulceration cluster; Distal ulcer in the cluster near coccyx with depth, taps to bone which is hard and viable in appearance; with probing no apparent tracking; do not appreciate any foul odor, purulent or feculent drainage; no surrounding excess warmth, fluctuance, induration; wound base appears granular and pink. Proximal cluster is more superficial into the subcutaneous tissue with pink/red base without significant drainage/excess warmth/fluctuance/induration. 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 Debridement Note Debridement Note No debridement was completed: No debridement was completed today Post-Debridement Measurements and Additional Note: Post-Debridement Measurements/Treatment CAROL - Nurse 1 - General Ulcer Assessment Start: 03/14/25 10:21 Freq: Status: Active Protocol: ROYER Activity Type Activity Date Activity User E-sign Co-sign Detail Recorded Client Recorded Date Recorded By Document 03/14/25 10:22 DL [id number] 03/14/25 10:44 DL Document 03/22/25 13:26 DL [id number] 03/22/25 13:40 DL Document 03/29/25 13:30 DS [id number] 03/29/25 13:37 DS 03/14/25 03/22/25 03/29/25 10:22 13:26 13:30 WC - Today's Visit Information Type of service Initial Visit Follow-up Visit Follow-up Visit (Physician/HOME COMFORT ADVISOR (Physician/HOME COMFORT ADVISOR ) ) Arrival Mode Wheelchair Wheelchair Wheelchair Transfer Assistance Manual Slade Lift Transfer Assist (Other) x2 Patient Identification Verified (Name & Yes Yes Yes ) Patient Requires Transmission-Based No No Precautions Safety Precautions Fall Prevention Height and Weight Height 4 ft 5 in Weight 75 lb 5.547 oz Weight in Pounds 75.3 lbs Body Mass Index (BMI) 18.8 18.8 18.8 BMI Classification Normal Normal Normal Vital Signs Temperature (97.8 F-99.1 F) 97.8 F 97.6 F L 97.3 F L Temperature Source Temporal Temporal Temporal Pulse Rate (60-100) 100 106 H Pulse Location Monitor Monitor Respiratory Rate (12-18) 16 18 18 Respiratory rate source Observation Observation Observation Oxygen Delivery Method Room Air Blood Pressure (90/60-120/80) 98/61 111/79 Blood Pressure Mean (mm Hg) 73 89 Source Monitor Monitor Position Sitting Blood Pressure Location Left Arm History Since Last Visit- (Skip if this is Patient's initial visit) Have you changed medications since your No Yes last visit? Any new allergies or adverse reactions No Yes Had a fall/change in ADL's that may No increase risk of falls Signs or symptoms of abuse and/or No neglect since last visit Have you been in the hospital since your No last visit? Has dressing in place as prescribed Yes Has compression in place as prescribed N/A Has offloadiing in place as prescribed Yes Experienced any changes in pain level or No management Pain Scale: 0-10 Numeric Is Patient Pain Free? Yes Yes Yes Communication Assessment Preferred language None Able to Read No: NonVerbal Able to Write No: NonVerbal Caregiver Communication Skills Unable To Impairment Follow Commands Teaching Assessment Preferences Verbal,Written, Demonstration Barriers to Learning None Readiness To Learn Poor Willingness to Engage in Self Management Low Activies Readiness to Engage in Self Management Low Activities Anxiety Level Calm Cooperation Cooperative Perception Coherent Interest in Health Problem Asks Questions Education Importance Acknowledges Need Does Patient Smoke tobacco or other No substances Is Patient Diabetic No Teaching: Wound Center Dressing Your Wound -Person Taught Patient,Family, Primary Caregiver -Teaching Method Discussion -Response to teaching Verbalize Understanding *Pressure Ulcers -Person Taught Patient,Primary Caregiver -Teaching Method Discussion -Response to teaching Verbalize Understanding Offload: Mattress, Cushion, Reposition -Person Taught Patient,Primary Caregiver -Teaching Method Discussion -Response to teaching Verbalize Understanding WC - Nurse 1 - General Ulcer Measurement Start: 03/14/25 10:21 Freq: Status: Active Protocol: Activity Type Activity Date Activity User E-sign Co-sign Detail Recorded Client Recorded Date Recorded By Document 03/14/25 10:22 DL [id number] 03/14/25 10:44 DL Document 03/22/25 13:26 DL [id number] 03/22/25 13:40 DL Document 03/29/25 13:37 DS [id number] 03/29/25 13:40 DS 03/14/25 03/22/25 03/29/25 10:22 13:26 13:37 Wound Center Nurse 1 #2- R BUTTOCK -Combined with other wound No -Current Size (cm) - Length 2.2 -Current Size (cm) - Width 2.8 -Current Size (cm) - Depth 0.1 -Total Square Cm 6.16 -Date of Last Picture (Recall this 03/29/25 field) -Photo Taken Yes -Epithelialization Small 1-33% -Tunneling No -Undermining/Tunneling No -Circular Undermining No -Exudate Amt Large -Exudate Type Serosanguineous -Wound Margin Distinct, Outline Attached -Granulation Amt Large (67-100%) -Granulation Quality Red -Slough/Fibrin Yes -Necrosis Amt Small (1-33%) -Necrotic Tissue Type Adherent Slough -Texture (Makenzie-wound Skin Appearance) Assessed, Scarring -Moisture (Makenzie-wound Skin Appearance) Assessed -Color (Makenzie-wound Skin Appearance) Assessed, Erythema -Temperature (Makenzie-wound Skin No Abnormality Appearance) (Pt Warm) -Tenderness on Palpation (Makenzie-wound No Skin Appearance) -Ulcer Cleansing Soap and Water -Foul Odor after Cleansing No -Anesthetic Used 4% Lidocaine Solution #1 SACRAL -Combined with other wound No -Current Size (cm) - Length 6.6 7 3.2 -Current Size (cm) - Width 4.2 2.5 3 -Current Size (cm) - Depth 1.8 1.8 2.6 -Total Square Cm 27.72 17.5 9.6 -Date of Last Picture (Recall this 03/29/25 field) -Photo Taken Yes Yes -Epithelialization Small 1-33% -Tunneling No -Undermining/Tunneling No -Circular Undermining No -Exudate Amt Medium Small Large -Exudate Type Serosanguineous Serosanguineous Serosanguineous -Wound Margin Distinct, Distinct, Distinct, Outline Outline Outline Attached Attached Attached -Granulation Amt Large (67-100%) Large (67-100%) Large (67-100%) -Granulation Quality Glidden Glidden,Red Red -Slough/Fibrin Yes -Necrosis Amt None Present (0 None Present (0 Small (1-33%) %) %) -Necrotic Tissue Type Adherent Slough Adherent Slough -Structure Exposed N/A N/A -Texture (Makenzie-wound Skin Appearance) Scarring,Rash Scarring Assessed, Scarring -Moisture (Makenzie-wound Skin Appearance) No Abnormality No Abnormality Assessed -Color (Makenzie-wound Skin Appearance) No Abnormality No Abnormality Assessed, Erythema -Temperature (Makenzie-wound Skin No Abnormality No Abnormality No Abnormality Appearance) (Pt Warm) (Pt Warm) (Pt Warm) -Tenderness on Palpation (Makenzie-wound No No Skin Appearance) -Ulcer Cleansing Soap and Water Soap and Water -Foul Odor after Cleansing No No No -Anesthetic Used 5% Lidocaine 4% Lidocaine 4% Lidocaine Gel Solution Solution WC - Nurse 2 - General Ulcer CM Notes Start: 03/14/25 10:21 Freq: Status: Active Protocol: Activity Type Activity Date Activity User E-sign Co-sign Detail Recorded Client Recorded Date Recorded By Document 03/14/25 11:06 BM [id number] 03/14/25 11:24 BM Document 03/22/25 13:50 DS [id number] 03/22/25 14:03 DS Document 03/29/25 13:53 [id number] 03/29/25 14:04 03/14/25 03/22/25 03/29/25 11:06 13:50 13:53 Wound Center Nurse 2 #2- R BUTTOCK -Time 13:53 -Correct Patient Yes -Correct Side, Site, Position Yes -Correct Procedure No -Procedure Performed No -Post Debridement (cm) - Length 1.7 -Post Debridement (cm) - Width 2.2 -Post Debridement (cm) - Depth 0.2 -Total Square (Post) (cm) 3.74 -Tunneling No -Undermining/Tunneling No -Circular Undermining No -Wound/Ulcer Outcome Not Healed -Ulcer Cleansing Rinsed/ Irrigated with Saline -Foul Odor after Cleansing No -Bioengineered Tissue No -Bleeding Controlled with NA -Offloading No #1 SACRAL -Time 11:06 13:55 13:53 -Correct Patient Yes Yes Yes -Correct Side, Site, Position Yes Yes Yes -Correct Procedure Yes Yes No -Procedure Performed Yes Yes No -Type of Procedure Debridement Debridement -Clinical Debridement Muscle / Fascia Muscle / Fascia -Tissue Removed Muscle,Fascia Muscle,Fascia -Post Debridement (cm) - Length 5.5 3.5 2.5 -Post Debridement (cm) - Width 7.5 7.5 2.1 -Post Debridement (cm) - Depth 2.0 3.3 3.0 -Total Square (Post) (cm) 41.25 26.25 5.25 -Area of Debridement (cm) - Length 5.5 3.5 -Area of Debridement (cm) - Width 7.5 7.5 -Total Square (Area) (cm) 41.25 26.25 -Tunneling No No -Undermining/Tunneling No No -Circular Undermining No No -Wound/Ulcer Outcome Not Healed Not Healed Not Healed -Ulcer Cleansing Rinsed/ Rinsed/ Not Cleansed Irrigated with Irrigated with Saline Saline -Foul Odor after Cleansing No No No -Bioengineered Tissue No No No -Bleeding Controlled with Pressure Pressure NA -Treatment Response Procedure Procedure Tolerated Well Tolerated Well -Debridement - Muscle / Fascia, 1st Yes Yes 20sq cm -Debridement, Muscle/Fascia, ea addt'l 1 1 20sq cm or part thereof Pain Scale: 0-10 Numeric Is Patient Pain Free? Yes Yes Yes WC - Nurse 3 - General Ulcer D/C NN Start: 03/14/25 10:21 Freq: Status: Active Protocol: Activity Type Activity Date Activity User E-sign Co-sign Detail Recorded Client Recorded Date Recorded By Document 03/14/25 11:40 ML [id number] 03/14/25 11:42 ML Document 03/22/25 15:51 BM [id number] 03/22/25 15:52 BMF Document 03/29/25 14:12 KW [id number] 03/29/25 14:16 KW 03/14/25 03/22/25 03/29/25 11:40 15:51 14:12 Wound Care Center Nurse 3 #2- R BUTTOCK -Ulcer Cleansing Rinsed/ Irrigated with Saline -Foul Odor after Cleansing No -Primary Dressing Applied Aquacel Extra -Other Covering ABD, TAPE -Aquacel Extra 1 #1 SACRAL -Ulcer Cleansing Soap and Water Rinsed/ Rinsed/ Irrigated with Irrigated with Saline Saline -Foul Odor after Cleansing No No -Primary Dressing Applied Aquacel Extra, Aquacel Extra Hysept Hysept -Other Dressing dakins 0.25 dakins to wound ABD w/ depth, aquacel extra to proximal area, -Primary Dressing Covered/Secured with Secured with Secured with Tape Tape -Other Covering abd pad; atb oint to makenzie wound -Aquacel Extra 1 1 -Hysept 1 1 Treatment Response Procedure Procedure Tolerated Well Tolerated Well Pain Scale: 0-10 Numeric Is Patient Pain Free? Yes Yes Yes WC - Visit Discharge Discharge Condition Stable Stable Ambulatory Status Wheelchair Wheelchair Transportation Private Auto Private Auto Accompanied by mom who is her MOM AND caregiver CAREGIVER Facility Type Home Health Assessment/Plan Assessment/Plan (1) Decubitus ulcer of right buttock, stage 4: CODE(S): L89.314 - Pressure ulcer of right buttock, 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: CODE(S): G80.8 - Other cerebral palsy (3) Incontinence of urine: CODE(S): R32 - Unspecified urinary incontinence QUALIFIERS: Urinary Incontinence type: continuous leakage Qualified Code(s): N39.45 - Continuous leakage (4) Fecal incontinence: CODE(S): R15.9 - Full incontinence of feces QUALIFIERS: Fecal incontinence type: unspecified Qualified Code(s): R15.9 - Full incontinence of feces (5) Celiac disease: CODE(S): K90.0 - Celiac disease (6) Milk intolerance: CODE(S): K90.49 - Malabsorption due to intolerance, not elsewhere classified (7) Malnutrition: CODE(S): E46 - Unspecified protein-calorie malnutrition QUALIFIERS: Malnutrition type: protein-calorie malnutrition Protein-calorie malnutrition severity: moderate Qualified Code(s): E44.0 - Moderate protein-calorie malnutrition (8) Anemia: CODE(S): D64.9 - Anemia, unspecified QUALIFIERS: Anemia type: iron deficiency Iron deficiency anemia type: inadequate dietary iron intake Qualified Code(s): D50.8 - Other iron deficiency anemias PLAN: Plan She completed 7-10 days of Cefdinir prior to discontinuation due to suspected allergic reaction. No signs/symptoms of systemic infection at present; the wound itself does not have any increased erythema, purulence, foul odor, focal edema. Will obtain an updated culture and determine plan for ongoing antibiotic therapy from there with low threshold for ID referral to assist with antibiotic selection/recommendations. For wound care continue: (1) Wash the area with antibacterial soap and water, pat to dry (2) Pack wound with Dakins-soaked gauze (3) Apply Aquacel extra to the superficial portions (4) Cover with ABD or other absorbent dressing such as super absorber (5) Change twice daily or more often as needed to keep clean. Once wound vac is received, can come in for a nurse visit prior to next for initial application; would plan for 125mmHg if well tolerated and changes 3x/week. Continue Blayne supplementation. Continue offloading efforts with frequent turns, at least every 2 hours. Plan for return to the office in 1 week, call sooner with concerns.
--- NOTE | 2025-03-29 15:36 | PCM.WC.PN ---
History of Present Illness Date of Service: 03/30/25 Chief Complaint: R buttock pressure ulceration History of Wound: Marcia Daniel is a 34 y/o female with cerebral palsy who is nonverbal and nonmobile, she has full care from her adoptive mother, Peg, who is present at her appointment today. She saw Jaimee to establish care at the wound center last week; however, due to scheduling difficulties will be transitioning to my care. Peg tells me that she has had this ulceration to some extent for the past ~7 years. They have had wound care previously at a different clinic close to their home but recently decided to change to seek a different approach. She reports around year 2 of the wound a wound vac was tried, but it sounds like there was difficulty maintaining good seal. She reports through the years they have consulted with 4 different surgeons to consider surgical management but each time have opted to continue nonsurgical efforts. She reports that there has never been any known associated fistula; she has never seen any fecal matter or drainage in/around the wound. Patient does not have any history of diverticulitis/colocutaneous fistulas, pilonidal cysts or similar conditions. She reports no foul odor or thick/purulent drainage recently. She reports that Marcia has been on IV antibiotics for this ulceration in the past with PICC/midlines; there was consideration of a port but she was felt to be too high risk for infection with this. 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 though no recent flares in the last year. She does have a low air loss mattress and robust padding in her wheelchair but she is completely nonambulatory. She has a history of malnutrition (relies on feeding tube for nutrition), urine incontinence (she has a long-term sage catheter), fecal incontinence (averages 1 BM per day, Peg reports this is managed quickly to prevent soiling of the wound) iron deficiency anemia, and gall bladder and kidney issues per report. She is currently between PCPs but re-establishing care with an old PCP in April. Subjective Subjective Peg reports that a few days ago, Marcia was flushed, tachycardic, and seemed to have increased work of breathing; she ended up determining these symptoms occurred shortly after a Cefdinir dose, she gave Benadryl and the symptoms resolved so she has determined it to be an allergy to the cefdinir. Since stopping the cefdinir, no recurrence of these symptoms. She reports she seems to be doing much better and is back to her baseline. She reports no fevers, chills. She feels the wound is looking a bit better, she has been performing wound care as discussed. The wound vac was approved and is scheduled to be delivered to her house tomorrow. Objective Data Objective Data Vital Signs: Vital Signs Temp Pulse Resp BP O2 Del Method 97.3 F L 106 H 18 111/79 Room Air 03/29/25 13:30 03/29/25 13:30 03/29/25 13:30 03/29/25 13:30 03/29/25 13:30 Oxygen Delivery Method Room Air Weight: 75 lb 5.547 oz Body Mass Index (BMI) 18.8 Lab / Micro Data 03/14/25 12:18 03/14/25 12:18 Micro: Microbiology 03/14/25 14:21 Wound - Buttock Gram Stain - Final 03/14/25 14:21 Wound - Buttock Wound Culture - Final Klebsiella aerogenes Enterococcus faecalis 03/14/25 14:21 Wound - Buttock Anaerobic Culture - Final Anaerobic cocci Prevotella bivia Charges/Coding Visit Charges Office Visits / Consults: [id number] OV L3 Est 20min Physical Exam Const alert Constitutional Narrative: Nonverbal Resp normal respiratory effort Resp Narrative: O2 supplementation via NC Skin Wound Narrative: R buttock pressure ulceration cluster; Distal ulcer in the cluster near coccyx with depth, taps to bone which is hard and viable in appearance; with probing no apparent tracking; do not appreciate any foul odor, purulent or feculent drainage; no surrounding excess warmth, fluctuance, induration; wound base appears granular and pink. Proximal cluster is more superficial into the subcutaneous tissue with pink/red base without significant drainage/excess warmth/fluctuance/induration. 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 Debridement Note Debridement Note No debridement was completed: No debridement was completed today Post-Debridement Measurements and Additional Note: Post-Debridement Measurements/Treatment CAROL - Nurse 1 - General Ulcer Assessment Start: 03/14/25 10:21 Freq: Status: Active Protocol: ROYER Activity Type Activity Date Activity User E-sign Co-sign Detail Recorded Client Recorded Date Recorded By Document 03/14/25 10:22 DL [id number] 03/14/25 10:44 DL Document 03/22/25 13:26 DL [id number] 03/22/25 13:40 DL Document 03/29/25 13:30 DS [id number] 03/29/25 13:37 DS 03/14/25 03/22/25 03/29/25 10:22 13:26 13:30 WC - Today's Visit Information Type of service Initial Visit Follow-up Visit Follow-up Visit (Physician/SECURITY DELIVERY SPECIALIST (Physician/SECURITY DELIVERY SPECIALIST ) ) Arrival Mode Wheelchair Wheelchair Wheelchair Transfer Assistance Manual Slade Lift Transfer Assist (Other) x2 Patient Identification Verified (Name & Yes Yes Yes ) Patient Requires Transmission-Based No No Precautions Safety Precautions Fall Prevention Height and Weight Height 4 ft 5 in Weight 75 lb 5.547 oz Weight in Pounds 75.3 lbs Body Mass Index (BMI) 18.8 18.8 18.8 BMI Classification Normal Normal Normal Vital Signs Temperature (97.8 F-99.1 F) 97.8 F 97.6 F L 97.3 F L Temperature Source Temporal Temporal Temporal Pulse Rate (60-100) 100 106 H Pulse Location Monitor Monitor Respiratory Rate (12-18) 16 18 18 Respiratory rate source Observation Observation Observation Oxygen Delivery Method Room Air Blood Pressure (90/60-120/80) 98/61 111/79 Blood Pressure Mean (mm Hg) 73 89 Source Monitor Monitor Position Sitting Blood Pressure Location Left Arm History Since Last Visit- (Skip if this is Patient's initial visit) Have you changed medications since your No Yes last visit? Any new allergies or adverse reactions No Yes Had a fall/change in ADL's that may No increase risk of falls Signs or symptoms of abuse and/or No neglect since last visit Have you been in the hospital since your No last visit? Has dressing in place as prescribed Yes Has compression in place as prescribed N/A Has offloadiing in place as prescribed Yes Experienced any changes in pain level or No management Pain Scale: 0-10 Numeric Is Patient Pain Free? Yes Yes Yes Communication Assessment Preferred language None Able to Read No: NonVerbal Able to Write No: NonVerbal Caregiver Communication Skills Unable To Impairment Follow Commands Teaching Assessment Preferences Verbal,Written, Demonstration Barriers to Learning None Readiness To Learn Poor Willingness to Engage in Self Management Low Activies Readiness to Engage in Self Management Low Activities Anxiety Level Calm Cooperation Cooperative Perception Coherent Interest in Health Problem Asks Questions Education Importance Acknowledges Need Does Patient Smoke tobacco or other No substances Is Patient Diabetic No Teaching: Wound Center Dressing Your Wound -Person Taught Patient,Family, Primary Caregiver -Teaching Method Discussion -Response to teaching Verbalize Understanding *Pressure Ulcers -Person Taught Patient,Primary Caregiver -Teaching Method Discussion -Response to teaching Verbalize Understanding Offload: Mattress, Cushion, Reposition -Person Taught Patient,Primary Caregiver -Teaching Method Discussion -Response to teaching Verbalize Understanding WC - Nurse 1 - General Ulcer Measurement Start: 03/14/25 10:21 Freq: Status: Active Protocol: Activity Type Activity Date Activity User E-sign Co-sign Detail Recorded Client Recorded Date Recorded By Document 03/14/25 10:22 DL [id number] 03/14/25 10:44 DL Document 03/22/25 13:26 DL [id number] 03/22/25 13:40 DL Document 03/29/25 13:37 DS [id number] 03/29/25 13:40 DS 03/14/25 03/22/25 03/29/25 10:22 13:26 13:37 Wound Center Nurse 1 #2- R BUTTOCK -Combined with other wound No -Current Size (cm) - Length 2.2 -Current Size (cm) - Width 2.8 -Current Size (cm) - Depth 0.1 -Total Square Cm 6.16 -Date of Last Picture (Recall this 03/29/25 field) -Photo Taken Yes -Epithelialization Small 1-33% -Tunneling No -Undermining/Tunneling No -Circular Undermining No -Exudate Amt Large -Exudate Type Serosanguineous -Wound Margin Distinct, Outline Attached -Granulation Amt Large (67-100%) -Granulation Quality Red -Slough/Fibrin Yes -Necrosis Amt Small (1-33%) -Necrotic Tissue Type Adherent Slough -Texture (Makenzie-wound Skin Appearance) Assessed, Scarring -Moisture (Makenzie-wound Skin Appearance) Assessed -Color (Makenzie-wound Skin Appearance) Assessed, Erythema -Temperature (Makenzie-wound Skin No Abnormality Appearance) (Pt Warm) -Tenderness on Palpation (Makenzie-wound No Skin Appearance) -Ulcer Cleansing Soap and Water -Foul Odor after Cleansing No -Anesthetic Used 4% Lidocaine Solution #1 SACRAL -Combined with other wound No -Current Size (cm) - Length 6.6 7 3.2 -Current Size (cm) - Width 4.2 2.5 3 -Current Size (cm) - Depth 1.8 1.8 2.6 -Total Square Cm 27.72 17.5 9.6 -Date of Last Picture (Recall this 03/29/25 field) -Photo Taken Yes Yes -Epithelialization Small 1-33% -Tunneling No -Undermining/Tunneling No -Circular Undermining No -Exudate Amt Medium Small Large -Exudate Type Serosanguineous Serosanguineous Serosanguineous -Wound Margin Distinct, Distinct, Distinct, Outline Outline Outline Attached Attached Attached -Granulation Amt Large (67-100%) Large (67-100%) Large (67-100%) -Granulation Quality [place],Red Red -Slough/Fibrin Yes -Necrosis Amt None Present (0 None Present (0 Small (1-33%) %) %) -Necrotic Tissue Type Adherent Slough Adherent Slough -Structure Exposed N/A N/A -Texture (Makenzie-wound Skin Appearance) Scarring,Rash Scarring Assessed, Scarring -Moisture (Makenzie-wound Skin Appearance) No Abnormality No Abnormality Assessed -Color (Makenzie-wound Skin Appearance) No Abnormality No Abnormality Assessed, Erythema -Temperature (Makenzie-wound Skin No Abnormality No Abnormality No Abnormality Appearance) (Pt Warm) (Pt Warm) (Pt Warm) -Tenderness on Palpation (Makenzie-wound No No Skin Appearance) -Ulcer Cleansing Soap and Water Soap and Water -Foul Odor after Cleansing No No No -Anesthetic Used 5% Lidocaine 4% Lidocaine 4% Lidocaine Gel Solution Solution WC - Nurse 2 - General Ulcer CM Notes Start: 03/14/25 10:21 Freq: Status: Active Protocol: Activity Type Activity Date Activity User E-sign Co-sign Detail Recorded Client Recorded Date Recorded By Document 03/14/25 11:06 BM [id number] 03/14/25 11:24 BM Document 03/22/25 13:50 DS [id number] 03/22/25 14:03 DS Document 03/29/25 13:53 [id number] 03/29/25 14:04 03/14/25 03/22/25 03/29/25 11:06 13:50 13:53 Wound Center Nurse 2 #2- R BUTTOCK -Time 13:53 -Correct Patient Yes -Correct Side, Site, Position Yes -Correct Procedure No -Procedure Performed No -Post Debridement (cm) - Length 1.7 -Post Debridement (cm) - Width 2.2 -Post Debridement (cm) - Depth 0.2 -Total Square (Post) (cm) 3.74 -Tunneling No -Undermining/Tunneling No -Circular Undermining No -Wound/Ulcer Outcome Not Healed -Ulcer Cleansing Rinsed/ Irrigated with Saline -Foul Odor after Cleansing No -Bioengineered Tissue No -Bleeding Controlled with NA -Offloading No #1 SACRAL -Time 11:06 13:55 13:53 -Correct Patient Yes Yes Yes -Correct Side, Site, Position Yes Yes Yes -Correct Procedure Yes Yes No -Procedure Performed Yes Yes No -Type of Procedure Debridement Debridement -Clinical Debridement Muscle / Fascia Muscle / Fascia -Tissue Removed Muscle,Fascia Muscle,Fascia -Post Debridement (cm) - Length 5.5 3.5 2.5 -Post Debridement (cm) - Width 7.5 7.5 2.1 -Post Debridement (cm) - Depth 2.0 3.3 3.0 -Total Square (Post) (cm) 41.25 26.25 5.25 -Area of Debridement (cm) - Length 5.5 3.5 -Area of Debridement (cm) - Width 7.5 7.5 -Total Square (Area) (cm) 41.25 26.25 -Tunneling No No -Undermining/Tunneling No No -Circular Undermining No No -Wound/Ulcer Outcome Not Healed Not Healed Not Healed -Ulcer Cleansing Rinsed/ Rinsed/ Not Cleansed Irrigated with Irrigated with Saline Saline -Foul Odor after Cleansing No No No -Bioengineered Tissue No No No -Bleeding Controlled with Pressure Pressure NA -Treatment Response Procedure Procedure Tolerated Well Tolerated Well -Debridement - Muscle / Fascia, 1st Yes Yes 20sq cm -Debridement, Muscle/Fascia, ea addt'l 1 1 20sq cm or part thereof Pain Scale: 0-10 Numeric Is Patient Pain Free? Yes Yes Yes WC - Nurse 3 - General Ulcer D/C NN Start: 03/14/25 10:21 Freq: Status: Active Protocol: Activity Type Activity Date Activity User E-sign Co-sign Detail Recorded Client Recorded Date Recorded By Document 03/14/25 11:40 ML [id number] 03/14/25 11:42 ML Document 03/22/25 15:51 BM [id number] 03/22/25 15:52 BMF Document 03/29/25 14:12 KW [id number] 03/29/25 14:16 KW 03/14/25 03/22/25 03/29/25 11:40 15:51 14:12 Wound Care Center Nurse 3 #2- R BUTTOCK -Ulcer Cleansing Rinsed/ Irrigated with Saline -Foul Odor after Cleansing No -Primary Dressing Applied Aquacel Extra -Other Covering ABD, TAPE -Aquacel Extra 1 #1 SACRAL -Ulcer Cleansing Soap and Water Rinsed/ Rinsed/ Irrigated with Irrigated with Saline Saline -Foul Odor after Cleansing No No -Primary Dressing Applied Aquacel Extra, Aquacel Extra Hysept Hysept -Other Dressing dakins 0.25 dakins to wound ABD w/ depth, aquacel extra to proximal area, -Primary Dressing Covered/Secured with Secured with Secured with Tape Tape -Other Covering abd pad; atb oint to makenzie wound -Aquacel Extra 1 1 -Hysept 1 1 Treatment Response Procedure Procedure Tolerated Well Tolerated Well Pain Scale: 0-10 Numeric Is Patient Pain Free? Yes Yes Yes WC - Visit Discharge Discharge Condition Stable Stable Ambulatory Status Wheelchair Wheelchair Transportation Private Auto Private Auto Accompanied by mom who is her MOM AND caregiver CAREGIVER Facility Type Home Health Assessment/Plan Assessment/Plan (1) Decubitus ulcer of right buttock, stage 4: CODE(S): L89.314 - Pressure ulcer of right buttock, 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: CODE(S): G80.8 - Other cerebral palsy (3) Incontinence of urine: CODE(S): R32 - Unspecified urinary incontinence QUALIFIERS: Urinary Incontinence type: continuous leakage Qualified Code(s): N39.45 - Continuous leakage (4) Fecal incontinence: CODE(S): R15.9 - Full incontinence of feces QUALIFIERS: Fecal incontinence type: unspecified Qualified Code(s): R15.9 - Full incontinence of feces (5) Celiac disease: CODE(S): K90.0 - Celiac disease (6) Milk intolerance: CODE(S): K90.49 - Malabsorption due to intolerance, not elsewhere classified (7) Malnutrition: CODE(S): E46 - Unspecified protein-calorie malnutrition QUALIFIERS: Malnutrition type: protein-calorie malnutrition Protein-calorie malnutrition severity: moderate Qualified Code(s): E44.0 - Moderate protein-calorie malnutrition (8) Anemia: CODE(S): D64.9 - Anemia, unspecified QUALIFIERS: Anemia type: iron deficiency Iron deficiency anemia type: inadequate dietary iron intake Qualified Code(s): D50.8 - Other iron deficiency anemias PLAN: Plan She completed 7-10 days of Cefdinir prior to discontinuation due to suspected allergic reaction. No signs/symptoms of systemic infection at present; the wound itself does not have any increased erythema, purulence, foul odor, focal edema. Will obtain an updated culture and determine plan for ongoing antibiotic therapy from there with low threshold for ID referral to assist with antibiotic selection/recommendations. For wound care continue: (1) Wash the area with antibacterial soap and water, pat to dry (2) Pack wound with Dakins-soaked gauze (3) Apply Aquacel extra to the superficial portions (4) Cover with ABD or other absorbent dressing such as super absorber (5) Change twice daily or more often as needed to keep clean. Once wound vac is received, can come in for a nurse visit prior to next for initial application; would plan for 125mmHg if well tolerated and changes 3x/week. Continue Blayne supplementation. Continue offloading efforts with frequent turns, at least every 2 hours. Plan for return to the office in 1 week, call sooner with concerns.
--- NOTE | 2025-03-30 09:30 | WC ---
PHOTO-RIGHT BUTTOCK 03/29/25
--- NOTE | 2025-03-30 09:30 | WC ---
PHOTO-RIGHT BUTTOCK 03/29/25
== END 2025-03-29 23:59 | disposition home or self-care (01) ==
LOC: WC 13:15
PROVIDERS: Physician Assistant; PCP Family Medicine; Referring Provider Family Medicine; Visit Provider Nurse Practitioner
DX: L89.314 Pressure ulcer of right buttock, stage 4 (principal); G80.8 Other cerebral palsy; L89.139 Pressure ulcer of right lower back, unspecified stage; D50.8 Other iron deficiency anemias; Z79.899 Other long term (current) drug therapy; R32 Unspecified urinary incontinence; R15.9 Full incontinence of feces; E44.0 Moderate protein-calorie malnutrition
CPT/HCPCS: 11043; 11046; 36415; 73502; 80053; 82728; 83540; 83550; 84134; 85025; 87070; 87075; 87077; 87186; 87205; 99213; 99214; G0463

== ENCOUNTER → 2025-04-05 | Outpatient (CLI) | payer MEDICAID, SELFPAY ==
[2025-04-05 16:07] LABS: Hematocrit 42.3 % (37-47); Hemoglobin 12.5 g/dL (12.0-15.0); Immature Granulocytes Count 0.070 X10^3/uL (0.0-0.0); Mean Corp Hgb Conc 29.6 g/dL (32-36); Mean Corpuscular Volume 93.4 fL (81-99); Mean Platelet Vol. 11.6 fl (6.2-12.0); NRBC Flagged by Analyzer 0 % (0-5); Platelet Count 271 K/mm3 (150-450); RBC Distribution Width CV 14.7 % (11.6-14.6); RBC Distribution Width SD 49.2 fl (35.1-43.9); Red Blood Count 4.53 M/mm3 (4.2-5.4); White Blood Count 12.2 K/mm3 (4.4-11.0)
[2025-04-05 16:24] LABS: Anion Gap 11 (5-15); BUN 27 mg/dL (4-19); BUN/Creat Ratio 83.3 RATIO (10-20); Calcium,Total 9.7 mg/dL (7.6-11.0); Carbon Dioxide 36.2 mmol/L (21.0-32.0); Chloride 99 mmol/L (98-108); Glucose 180 mg/dL (70-99); Potassium 3.7 mmol/L (3.3-5.1)
== END | disposition home or self-care (01) ==
LOC: LAB 15:04
PROVIDERS: PCP Family Medicine; Referring Provider Physician Assistant; Visit Provider Physician Assistant
DX: T14.8XXA Other injury of unspecified body region, initial encounter (principal); X58.XXXA Exposure to other specified factors, initial encounter
CPT/HCPCS: 36415; 80048; 85025

== ENCOUNTER 2025-04-06 12:46 | Emergency (ER) | payer MEDICAID, SELFPAY ==
[2025-04-06 12:47] VITALS: BP 96/69; PULSE 98; RESP 16; TEMP 37.2; O2SAT 96
[2025-04-06 13:17] VITALS: BP 99/61; PULSE 78; RESP 16; TEMP 37; O2SAT 98
--- NOTE | 2025-04-06 13:17 | CT_ITS ---
PROCEDURE: ABDOMEN/PELVIS W IV CONT ONLY 04/06/2025 REASON FOR EXAM: SACRAL WOUND Chronic buttock wound. This has worsened recently. Quadriplegia TECHNIQUE: ABDOMEN/PELVIS W IV CONT ONLY Coronal and Sagittal reconstruction series were provided. CONTRAST: Isovue 370 VOLUME: 75 mL One or more dose reduction techniques were used (e.g., Automated exposure control, adjustment of the mA and/or kV according to patient size, use of iterative reconstruction technique. RADIATION DOSE SUMMARY: CTDlvol: 12 mGy DLP: 520 mGycm COMPARISON: March 14, 2025 x-ray FINDINGS: Lung bases: Compressive subsegmental atelectasis of the lung bases. Liver: Normal Gallbladder: Cholecystectomy. No biliary ductal dilation. Spleen: Normal Pancreas: Normal Adrenals: Normal Kidneys: No collecting system dilation or solid mass seen. Bladder: Empty from a Myles catheter. Mild thickening of the skin around the urethra mainly on the right side. Reproductive Organs: Unremarkable Bowel: Percutaneous gastrostomy tube is present within the otherwise unremarkable stomach. The small bowel is not dilated. Colon appears normal. Appendix: Normal Lymph nodes: None appear enlarged. Vasculature: Normal Peritoneum / Retroperitoneum: No free air, free fluid or mass. Bones: Overlying the right sacral tuberosity there is a large decubitus ulcer crater with thickening of the edgar of the ulcer and mild infiltration of the subcutaneous soft tissues. The soft tissue lesion extends down to the ischial tuberosity where there is a combination of some sclerosis and heterotopic bone formation. No definite cortical thinning or osteolysis is seen. Nevertheless, given that the ulcer extends up to the bone, osteomyelitis should be considered. Overlying the distal sacrum and coccyx there is some mild infiltration of the subcutaneous soft tissues but no ulceration. No cortical destruction or osteolysis. Severe curvature with a rotatory component is seen involving the thoracic and the lumbar spine. Posterior fusion of the spine with hooks and rods is seen and includes the iliac bone on the right in the iliac/SI joint on the left. Abdominal wall: Pain pump is seen overlying the left lower quadrant. The catheter tubing appears to terminate overlying the right upper flank. CT/Abdomen/Pelvis W IV Cont ONLY IMPRESSION: 1. Sacral decubitus ulcer with extension down to the ischial tuberosity. Ther e is heterotopic bone present there. Since the ulcer extends essentially to the level of the bone osteomyelitis should be cons idered. No drainable abscess or collection. Chronic scarring, inflammation of the skin. 2. Subtle infiltration of the subcutaneous fat overlying the lower sacral segm ents and coccyx. No skin breakdown seen. No bony abnormality. Early stage ulcer may be present. Recommend direct inspection. 3. Percutaneous gastrostomy tube in place. Uncomplicated 4. Myles catheter in place. Qualitative thickening of the skin on the right s saul near the opening of the urethra. Recommend direct inspection to ensure no inflammation. 5. Pain pump overlying the left lower quadrant. The catheter tubing terminate s overlying the right flank at the level of the liver. Recommend inspection and function evaluation. 6. No acute intra abdominal or pelvic abnormality. 7. Cholecystectomy. Reading Location: [id number]
--- NOTE | 2025-04-06 13:18 | EDS_ITS ---
HPI <STACIE Tabor - Last Filed: 04/06/25 19:50> History of Present Illness Chief Complaint: Wound Narrative Narrative: 34-year-old female with cerebral palsy who is nonverbal, nonmobile, on chronic oxygen after remote pneumonia, has feeding tube and indwelling Myles catheter with a chronic sacral wound x 7 years. Mom states she most recently got wound care at [place] but the physician left the practice. She was looking around for new center and established with [facility] 3 weeks ago. About a week ago she was started on cefdinir but started to become flushed and uncomfortable and mom finally figured out it was the antibiotic and stopped giving it. They did wound cultures and saw her in the office yesterday and prescribed oral antibiotics which she has not picked up yet. Mom is concerned she needs IV antibiotics through midline because she always improves on IV antibiotics. She said no recent fever. Mom states there are 2 sacral wounds 1 approximately the size of both quarter which tunnels to bone and 1 which is a $0.50 piece which is more shallow. There is no purulent drainage or cellulitis. [facility] <STACIE Tabor - Last Filed: 04/06/25 19:50> [facility] Medical History (Updated 04/06/25 @ 15:44 by STACIE Tabor) Quadriplegic infantile cerebral palsy Home Medications ?Medication ?Instructions ?Recorded ?Last Taken ?Type acetaminophen 325 mg tablet (Aphen) 325 mg PO Q6H PRN fever or pain 03/14/25 Unknown History albuterol (refill) 90 mcg inhalation 03/14/25 Unkn own History mcg/actuation aerosol inhaler amikacin 1,000 mg/4 mL injection 250 mg IM Q12H Unknown History solution baclofen 50 mcg/mL intrathecal 50 mcg intrathecal Q24H 03/14/25 Unknown History solution diazepam (Valtoco) 15 mg intranasal Q4H 5 Unknown History diazepam 2 mg tablet 2 mg PO DAILY 03/14/25 Unkno wn History doxycycline monohydrate 100 mg 100 mg PO BID 03/14/25 Unknown History capsule fluconazole 100 mg tablet 100 mg PO DAILY 03/14/25 Unk nown History (Diflucan) fluticasone propionate 50 2 spray intranasal DAILY PRN nasal 03/14/25 Unknown History mcg/actuation nasal congestion spray,suspension (Aller-Kenny) ibuprofen 200 mg tablet (IBU-200) 200 mg PO Q8H Unknown History levetiracetam 100 mg/mL oral PO 03/14/25 Unknown Histo ry solution loratadine 10 mg tablet 10 mg PO DAILY 03/14/25 Unkn own History medroxyprogesterone 150 mg/mL 150 mg IM QMONTH 5 Unknown History intramuscular suspension (Depo-Provera) omeprazole 40 mg capsule,delayed 40 mg PO DAILY Unknown History release polyethylene glycol 3350 17 17 g PO DAILY 03/14/25 Unk nown History gram/dose oral powder (ClearLax) promethazine 12.5 mg rectal 12.5 mg ND Q6H nausea 02/27 02/21 Unknown History suppository singular 03/14/25 Unknown History tramadol 50 mg tablet 50 mg PO DAILY 03/14/25 Unkn own History ciprofloxacin 500 mg/5 mL oral 500 mg (5 mL) PO Q12H 4 weeks #280 04/05/25 Unknown Rx suspension (Cipro) mL Allergy/AdvReac Type Severity Reaction Status Date / Time Penicillins (PCN) AdvReac Blisters Verified 04/06/25 12:49 Social History Smoking Status: Never smoker ROS <STACIE Tabor - Last Filed: 04/06/25 19:50> ROS ED ROS Narrative Constitutional: Negative for fever. GI: Negative for vomiting. Skin: Positive for chronic wounds. EXAM <STACIE Tabor - Last Filed: 04/06/25 19:50> Physical Exam Narrative Exam Narrative: CONST: Patient is awake but nonverbal. EYES: Normal inspection. NECK: Normal inspection. RESP: No respiratory distress, CTAB. CVS: Regular rate and rhythm, no murmur, no gallop. SKIN: Color normal, no rash, warm, dry, intact. EXTREMITIES: Atrophy of all extremities. Back/butto Wound VAC in the sacral region. After removal of the wound VAC dressing there is a quarter sized deep ulceration with no surrounding erythema, no pus, no odor. There is a more superficial wound lower than this again with no signs of infection. PSYCH: Normal affect. Const Vital Signs: 04/06/25 12:47 04/06/25 13:17 04/06/25 14:47 Temperature 98.9 F 98.6 F Temperature Source Temporal Oral Pulse Rate 98 78 91 Respiratory Rate 16 16 16 Blood Pressure 96/69 99/61 96/72 Blood Pressure Mean 78 73 80 Pulse Ox 96 98 98 Oxygen Delivery Method Room Air Room Air Nasal Cannula Oxygen Flow Rate (L/min) 2 04/06/25 16:00 04/06/25 16:12 Temperature 98.9 F Temperature Source Pulse Rate 99 78 Respiratory Rate 18 14 Blood Pressure 98/61 94/63 Blood Pressure Mean 73 73 Pulse Ox 97 97 Oxygen Delivery Method Nasal Cannula Oxygen Flow Rate (L/min) 2 <Dr. Nino Shaver MD - Last Filed: 04/06/25 15:48> Physical Exam Const Vital Signs: 04/06/25 12:47 04/06/25 13:17 04/06/25 14:47 Temperature 98.9 F 98.6 F Temperature Source Temporal Oral Pulse Rate 98 78 91 Respiratory Rate 16 16 16 Blood Pressure 96/69 99/61 96/72 Blood Pressure Mean 78 73 80 Pulse Ox 96 98 98 Oxygen Delivery Method Room Air Room Air Nasal Cannula Oxygen Flow Rate (L/min) 2 04/06/25 16:00 04/06/25 16:12 Temperature 98.9 F Temperature Source Pulse Rate 99 78 Respiratory Rate 18 14 Blood Pressure 98/61 94/63 Blood Pressure Mean 73 73 Pulse Ox 97 97 Oxygen Delivery Method Nasal Cannula Oxygen Flow Rate (L/min) 2 MDM <STACIE Tabor - Last Filed: 04/06/25 19:50> [facility] MDM Narrative Medical decision making narrative: Consult: Wound center Differential: Chronic wound, cellulitis, abscess, osteomyelitis 34-year-old female with cerebral palsy, nonverbal, nonverbal, chronic sacral wound x 7 years presents for evaluation of the sacral wound. She recently established with [place] wound care and was seen in the office yesterday. Almost concerned she might need IV antibiotics of brought her in. She was noted to be tachycardic in the office yesterday, today her BP is 96/69 but she is a small female and she is not tachycardic or febrile. Sacral wounds were examined and 1 probes deep to the bone but appears clean without surrounding redness, drainage or odor. The other is more superficial. Labs overall look reassuring with normal white count at 8.9. See TE of the abdomen/pelvis shows that the decubitus ulcer extends to the ischial tuberosity there is no bony changes or abscess. Based on her history and workup I do not think IV antibiotics are indicated. I spoke with Onelia Gaspar who saw her in the wound center yesterday and she advised continuing the planned outpatient antibiotics. Cipro has already been sent to her pharmacy and mom will pick it up today. Wound Center plans to initiate the second antibiotic in 5 to 7 days because the patient has had antibiotic reactions in the past. She has a wound care appointment scheduled on and was discharged in stable condition. External records reviewed: Wound Center visit on 04/05/2025 Wound culture from 03/29/25 had multiple bacteria including Enterococcus faecalis and avium, Pseudomonas aeruginosa, Corynebacterium striatum (contaminant), Proteus Mirabellis, Klebsiella aerogenes, Prevotella bivia, and unspecified anaerobes. Given question of osteo they referred to ID and reviewed with the [facility] inpatient pharmacy and prescribed oral Cipro, Flagyl, and linezolid. They initiated 1 antibiotic at a time due to her history of reactions and sent Cipro to the pharmacy. Plan was to treat with oral antibiotics and continue the wound VAC. The wound looked overall stable but given her flushing and tachycardia they recommended ER evaluation but mom could not come in last night. I have personally performed a face to face assessment of the patient and have reviewed the YUDY Note. I performed a substantive portion of the visit including all aspects of the following. My camejo findings include: History is 34-year-old female who is unable to communicate verbally. Brought in by her mom. 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 She has chronic wounds of her buttock and sacral region. Was previously seeing wound care center around [facility]. They had to change physicians and now sees her wound care center. She is currently on oral antibiotics. Mom is concerned that she might need IV antibiotics. She also has a wound VAC in place. Exam is [34-year-old female sitting upright in bed. Vital signs are stable her blood pressure is only 99/61 but she is very small female. HEENT exam pupils are round reactive light. Mytrex membranes. Lungs clear to auscultation. Heart regular rhythm rate about 80 no murmur. Chest wall ribs nontender. Abdomen soft nontender. She has atrophy of both upper and lower extremities. Back she has a wound VAC in place to the lower back region. That has not been removed as of yet. Neurologically she is awake. Her eyes are not open. She does not follow commands or answer any questions. She is nonverbal.] Medical Decision Making [labs and CT of the wound will be obtained.] Other additions or changes: [We took down the wound VAC dressing. She is to ulceration wounds on the left buttock. Neither looks acutely bad. The more proximal one is a deeper wound but there is no pus. There is no surrounding cellulitis or inflamed tissue. We went over this with mom given her CAT scan and the other test results are comfortable with her being discharged home. Physician floor covering printer assistant talked to the wound care center about the antibiotic therapy they want to have done.] History & Record Review Discussion w/independent historian: Family and Friend Additional record(s) reviewed:: Prior outpatient record Lab Data Labs: Laboratory Results - last 24 hr 04/06/25 13:32 WBC 8.9 RBC 4.07 L Hgb 11.3 L Hct 39.2 MCV 96.3 MCH 27.8 MCHC 28.8 L RDW Std Deviation 50.8 H RDW Coeff of Chad 14.8 H Plt Count 258 MPV 11.0 Immature Gran % (Auto) 0.600 Neut % (Auto) 66.2 Lymph % (Auto) 20.1 [place] % (Auto) 9.9 Eos % (Auto) 2.1 Baso % (Auto) 1.1 H Absolute Neuts (auto) 5.9 Absolute Lymphs (auto) 1.78 Nucleated RBC % 0 Sodium 144 Potassium 5.0 Chloride 96 L Carbon Dioxide 38.6 H Anion Gap 9 BUN 27 H Creatinine 0.27 L Est GFR (MDRD) Non-Af 146 BUN/Creatinine Ratio 98.5 H Glucose 232 H Calcium 9.8 Radiography Diagnostic Testing: Clinical Impression(s) from Imaging Studies Abdomen/Pelvis CT 04/06/25 13:17 IMPRESSION: 1. Sacral decubitus ulcer with extension down to the ischial tuberosity. There is heterotopic bone present there. Since the ulcer extends essentially to the level of the bone osteomyelitis should be considered. No drainable abscess or collection. Chronic scarring, inflammation of the skin. 2. Subtle infiltration of the subcutaneous fat overlying the lower sacral segments and coccyx. No skin breakdown seen. No bony abnormality. Early stage ulcer may be present. Recommend direct inspection. 3. Percutaneous gastrostomy tube in place. Uncomplicated 4. Myles catheter in place. Qualitative thickening of the skin on the right side near the opening of the urethra. Recommend direct inspection to ensure no inflammation. 5. Pain pump overlying the left lower quadrant. The catheter tubing terminates overlying the right flank at the level of the liver. Recommend inspection and function evaluation. 6. No acute intra abdominal or pelvic abnormality. 7. Cholecystectomy. Reading Location: [id number] <Dr. Nino Shaver MD - Last Filed: 04/06/25 15:48> MDM MDM Narrative Medical decision making narrative: External records reviewed: Wound Center visit on 04/05/2025 Wound culture from 03/29/25 had multiple bacteria including Enterococcus faecalis and avium, Pseudomonas aeruginosa, Corynebacterium striatum (contaminant), Proteus Mirabellis, Klebsiella aerogenes, Prevotella bivia, and unspecified anaerobes. Given question of osteo they referred to ID and reviewed with the [facility] inpatient pharmacy and prescribed oral Cipro, Flagyl, and linezolid. They initiated 1 antibiotic at a time due to her history of reactions and sent Cipro to the pharmacy. Plan was to treat with oral antibiotics and continue the wound VAC. The wound looked overall stable but given her flushing and tachycardia they recommended ER evaluation but mom could not come in last night. I have personally performed a face to face assessment of the patient and have reviewed the YUDY Note. I performed a substantive portion of the visit including all aspects of the following. My camejo findings include: History is 34-year-old female who is unable to communicate verbally. Brought in by her mom. 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 She has chronic wounds of her buttock and sacral region. Was previously seeing wound care center around [facility]. They had to change physicians and now sees her wound care center. She is currently on oral antibiotics. Mom is concerned that she might need IV antibiotics. She also has a wound VAC in place. Exam is [34-year-old female sitting upright in bed. Vital signs are stable her blood pressure is only 99/61 but she is very small female. HEENT exam pupils are round reactive light. Mytrex membranes. Lungs clear to auscultation. Heart regular rhythm rate about 80 no murmur. Chest wall ribs nontender. Abdomen soft nontender. She has atrophy of both upper and lower extremities. Back she has a wound VAC in place to the lower back region. That has not been removed as of yet. Neurologically she is awake. Her eyes are not open. She does not follow commands or answer any questions. She is nonverbal.] Medical Decision Making [labs and CT of the wound will be obtained.] Other additions or changes: [We took down the wound VAC dressing. She is to ulceration wounds on the left buttock. Neither looks acutely bad. The more proximal one is a deeper wound but there is no pus. There is no surrounding cellulitis or inflamed tissue. We went over this with mom given her CAT scan and the other test results are comfortable with her being discharged home. Physician floor covering printer assistant talked to the wound care center about the antibiotic therapy they want to have done.] Lab Data Attestation: I reviewed the patient's lab results. Lab results narrative: CBC shows a white count 8.9. H&H 11.3 and 39. Platelets 258. Labs: Laboratory Results - last 24 hr 04/06/25 13:32 WBC 8.9 RBC 4.07 L Hgb 11.3 L Hct 39.2 MCV 96.3 MCH 27.8 MCHC 28.8 L RDW Std Deviation 50.8 H RDW Coeff of Chad 14.8 H Plt Count 258 MPV 11.0 Immature Gran % (Auto) 0.600 Neut % (Auto) 66.2 Lymph % (Auto) 20.1 [place] % (Auto) 9.9 Eos % (Auto) 2.1 Baso % (Auto) 1.1 H Absolute Neuts (auto) 5.9 Absolute Lymphs (auto) 1.78 Nucleated RBC % 0 Sodium 144 Potassium 5.0 Chloride 96 L Carbon Dioxide 38.6 H Anion Gap 9 BUN 27 H Creatinine 0.27 L Est GFR (MDRD) Non-Af 146 BUN/Creatinine Ratio 98.5 H Glucose 232 H Calcium 9.8 Radiography Diagnostic Testing: Clinical Impression(s) from Imaging Studies Abdomen/Pelvis CT 04/06/25 13:17 IMPRESSION: 1. Sacral decubitus ulcer with extension down to the ischial tuberosity. There is heterotopic bone present there. Since the ulcer extends essentially to the level of the bone osteomyelitis should be considered. No drainable abscess or collection. Chronic scarring, inflammation of the skin. 2. Subtle infiltration of the subcutaneous fat overlying the lower sacral segments and coccyx. No skin breakdown seen. No bony abnormality. Early stage ulcer may be present. Recommend direct inspection. 3. Percutaneous gastrostomy tube in place. Uncomplicated 4. Myles catheter in place. Qualitative thickening of the skin on the right side near the opening of the urethra. Recommend direct inspection to ensure no inflammation. 5. Pain pump overlying the left lower quadrant. The catheter tubing terminates overlying the right flank at the level of the liver. Recommend inspection and function evaluation. 6. No acute intra abdominal or pelvic abnormality. 7. Cholecystectomy. Reading Location: [facility] Discharge Plan Triage Chief Complaint: Wound ED Midlevel Provider: Rhina Nicole ED Provider: Nino Shaver Dx/Rx/DC Orders Clinical Impression: Decubitus ulcer of right buttock, stage 4, Quadriplegic infantile cerebral palsy Instructions: ED Wound Care Prescriptions: No Action amikacin 1,000 mg/4 mL solution 250 mg IM Q12H Valtoco 15 mg/2 spray (7.5/0.1mL x 2) spray,non-aerosol 15 mg intranasal Q4H Rx Instructions: administer 1 spray in each nostril albuterol (refill) 90 mcg/actuation aerosol inhalation baclofen 50 mcg/mL solution 50 mcg intrathecal Q24H Rx Instructions: give day 1 of course of therapy ibuprofen [IBU-200] 200 mg tablet 200 mg PO Q8H acetaminophen [Aphen] 325 mg tablet 325 mg PO Q6H PRN (Reason: fever or pain) singular diazepam 2 mg tablet 2 mg PO DAILY levetiracetam 100 mg/mL solution PO promethazine 12.5 mg suppository 12.5 mg ND Q6H omeprazole 40 mg capsule,delayed release(DR/EC) 40 mg PO DAILY fluticasone propionate [Aller-Kenny] 50 mcg/actuation spray,suspension 2 spray intranasal DAILY PRN (Reason: nasal congestion) Rx Instructions: administer into each nostril tramadol 50 mg tablet 50 mg PO DAILY medroxyprogesterone [Depo-Provera] 150 mg/mL suspension 150 mg IM QMONTH Rx Instructions: every 3 months loratadine 10 mg tablet 10 mg PO DAILY polyethylene glycol 3350 [ClearLax] 17 gram/dose powder 17 g PO DAILY doxycycline monohydrate 100 mg capsule 100 mg PO BID fluconazole [Diflucan] 100 mg tablet 100 mg PO DAILY ciprofloxacin [Cipro] 500 mg/5 mL suspension,microcapsule recon 500 mg PO Q12H 28 Days Qty: 280 0RF Primary Care Provider: Kelly Goode Referrals: Kelly Goode MD [Primary Care Provider] - Activity Restrictions/Additional Instructions: Today's blood work looks reassuring and the CT scan shows the 1 wound tunnels to bone but but there is no signs of abscess. I spoke with Onelia Gaspar in the wound center and she would like you to start the Cipro now and then she will start the next antibiotic in 5 to 7 days. Keep your appointment with them next week. Print Language: Japanese Disposition Disposition: Home, Self Care Discharge Date/Time: 04/06/25 16:13
[2025-04-06 13:45] LABS: Hematocrit 39.2 % (37-47); Hemoglobin 11.3 g/dL (12.0-15.0); Immature Granulocytes Count 0.050 X10^3/uL (0.0-0.0); Mean Corp Hgb Conc 28.8 g/dL (32-36); Mean Corpuscular Volume 96.3 fL (81-99); Mean Platelet Vol. 11.0 fl (6.2-12.0); NRBC Flagged by Analyzer 0 % (0-5); Platelet Count 258 K/mm3 (150-450); RBC Distribution Width CV 14.8 % (11.6-14.6); RBC Distribution Width SD 50.8 fl (35.1-43.9); Red Blood Count 4.07 M/mm3 (4.2-5.4); White Blood Count 8.9 K/mm3 (4.4-11.0)
[2025-04-06 14:47] VITALS: BP 96/72; PULSE 91; RESP 16; O2SAT 98
[2025-04-06 15:25] LABS: Anion Gap 9 (5-15); BUN 27 mg/dL (4-19); BUN/Creat Ratio 98.5 RATIO (10-20); Calcium,Total 9.8 mg/dL (7.6-11.0); Carbon Dioxide 38.6 mmol/L (21.0-32.0); Chloride 96 mmol/L (98-108); Glucose 232 mg/dL (70-99); Potassium 5.0 mmol/L (3.3-5.1)
[2025-04-06 16:00] VITALS: BP 98/61; PULSE 99; RESP 18; O2SAT 97
[2025-04-06 16:12] VITALS: BP 94/63; PULSE 78; RESP 14; TEMP 37.2; O2SAT 97
== END 2025-04-06 16:13 | disposition home or self-care (01) ==
PROVIDERS: Physician Assistant; Emergency Provider Emergency Medicine; PCP Family Medicine; Visit Provider Emergency Medicine
DX: L89.314 Pressure ulcer of right buttock, stage 4 (principal); G80.0 Spastic quadriplegic cerebral palsy
CPT/HCPCS: 74177; 80048; 85025; 99283; Q9967; A4216

== ENCOUNTER 2025-04-19 14:45 | Outpatient (RCR) | payer MEDICAID, SELFPAY ==
[2025-04-05 13:24] VITALS: BP 113/76; PULSE 119; RESP 18; TEMP 37.1
--- NOTE | 2025-04-05 17:49 | PCM.WC.PN ---
History of Present Illness Date of Service: 04/05/25 Chief Complaint: R buttock pressure ulceration History of Wound: Marcia Daniel is a 34 y/o female with cerebral palsy who is nonverbal and nonmobile, she has full care from her adoptive mother, Peg, who is present at her appointment today. She saw Jaimee to establish care at the wound center last week; however, due to scheduling difficulties will be transitioning to my care. Peg tells me that she has had this ulceration to some extent for the past ~7 years. They have had wound care previously at a different clinic close to their home but recently decided to change to seek a different approach. She reports around year 2 of the wound a wound vac was tried, but it sounds like there was difficulty maintaining good seal. She reports through the years they have consulted with 4 different surgeons to consider surgical management but each time have opted to continue nonsurgical efforts. She reports that there has never been any known associated fistula; she has never seen any fecal matter or drainage in/around the wound. Patient does not have any history of diverticulitis/colocutaneous fistulas, pilonidal cysts or similar conditions. She reports no foul odor or thick/purulent drainage recently. She reports that Marcia has been on IV antibiotics for this ulceration in the past with PICC/midlines; there was consideration of a port but she was felt to be too high risk for infection with this. 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 though no recent flares in the last year. She does have a low air loss mattress and robust padding in her wheelchair but she is completely nonambulatory. She has a history of malnutrition (relies on feeding tube for nutrition), urine incontinence (she has a long-term sage catheter), fecal incontinence (averages 1 BM per day, Peg reports this is managed quickly to prevent soiling of the wound) iron deficiency anemia, and gall bladder and kidney issues per report. She is currently between PCPs but re-establishing care with an old PCP in April. At last visit here, Jaimee obtained wound cultures and started patient on Cefdinir x 2 weeks per sensitivity results. Peg states they just started these antibiotics yesterday, so far she seems to be tolerating them well. Subjective Subjective Last week, they received wound vac and had it placed. So far, she seems to be tolerating the wound vac well and Peg reports it has been maintaining good seal overall. Today, Marcia seems to be in discomfort, she is moaning intermittently. Peg notes she this is more than usual and she does seem to have some pain though difficult to pinpoint where. Her face is flushed today. She is tachycardic, though she tends toward higher heart rates at past visits also. Temp and BP normal here today, BP within her usual range here so far. Peg reports no fevers and no apparent chills at home. She has not noticed any increased drainage or odor from the wound. Objective Data Objective Data Vital Signs: Vital Signs Temp Pulse Resp BP 98.7 F 119 H 18 113/76 04/05/25 13:24 04/05/25 13:24 04/05/25 13:24 04/05/25 13:24 Charges/Coding Procedures Integumentary [id number]: [id number] Linda musc/fascia 20 sq cm/< Physical Exam Const alert Constitutional Narrative: Nonverbal Resp normal respiratory effort Resp Narrative: O2 supplementation via NC Skin Wound Narrative: R buttock pressure ulceration cluster; Distal ulcer in the cluster near coccyx with depth, taps to bone which is hard and viable in appearance; with probing no apparent tracking; do not appreciate any foul odor, purulent or feculent drainage; no surrounding excess warmth, fluctuance, induration; wound base appears granular and pink. Proximal cluster is more superficial into the subcutaneous tissue with pink/red base without significant drainage/excess warmth/fluctuance/induration. 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 Debridement Note Debridement Note Wound debrided: Decubitus ulcer right gluteal Laterality: Right Wound Grade/Stage: Stage IV Type of Debridement: Excisional debridement Anesthesia Used: 5% Lidocaine Gel Depth: to muscle Percentage of wound debrided: 100 Instrument Used: 5mm curette Tissue Removed: Fibrin slough, devitalized tissue Severity: Fat Layer Exposed Amount of bleeding with debridement: Mild Bleeding Controlled with: Compression and gauze Patient tolerated procedure: Patient tolerated procedure well Post-Debridement Measurements and Additional Note: Post-Debridement Measurements/Treatment CAROL - Nurse 1 - General Ulcer Assessment Start: 03/30/25 13:28 Freq: Status: Active Protocol: ROYER Activity Type Activity Date Activity User E-sign Co-sign Detail Recorded Client Recorded Date Recorded By Document 04/05/25 13:24 DL [id number] 04/05/25 13:46 DL 04/05/25 13:24 WC - Today's Visit Information Type of service Follow-up Visit (Physician/MANAGER GREEN ) Arrival Mode Wheelchair Transfer Assistance Slade Lift Patient Identification Verified (Name & Yes ) Patient Requires Transmission-Based No Precautions Vital Signs Temperature (97.8 F-99.1 F) 98.7 F Temperature Source Temporal Pulse Rate (60-100) 119 H Pulse Location Monitor Respiratory Rate (12-18) 18 Respiratory rate source Observation Blood Pressure (90/60-120/80) 113/76 Blood Pressure Mean (mm Hg) 88 Source Monitor History Since Last Visit- (Skip if this is Patient's initial visit) Have you changed medications since your No last visit? Any new allergies or adverse reactions No Had a fall/change in ADL's that may No increase risk of falls Signs or symptoms of abuse and/or No neglect since last visit Have you been in the hospital since your No last visit? Has dressing in place as prescribed Yes Has compression in place as prescribed N/A Has offloadiing in place as prescribed Yes Experienced any changes in pain level or No management Pain Scale: 0-10 Numeric Is Patient Pain Free? Yes - Nurse 1 - General Ulcer Measurement Start: 03/30/25 13:28 Freq: Status: Active Protocol: Activity Type Activity Date Activity User E-sign Co-sign Detail Recorded Client Recorded Date Recorded By Document 04/05/25 13:24 DL [id number] 04/05/25 13:46 04/05/25 13:24 Wound Center Nurse 1 #2- R BUTTOCK -Current Size (cm) - Length 2 -Current Size (cm) - Width 1.8 -Current Size (cm) - Depth 0.1 -Total Square Cm 3.6 -Exudate Amt Small -Exudate Type Serosanguineous -Wound Margin Distinct, Outline Attached -Granulation Amt Large (67-100%) -Granulation Quality [place] -Necrosis Amt Small (1-33%) -Necrotic Tissue Type Adherent Slough -Structure Exposed N/A -Texture (Makenzie-wound Skin Appearance) Excoriation, Scarring -Moisture (Makenzie-wound Skin Appearance) No Abnormality -Color (Makenzie-wound Skin Appearance) No Abnormality -Temperature (Makenzie-wound Skin No Abnormality Appearance) (Pt Warm) -Tenderness on Palpation (Makenzie-wound No Skin Appearance) -Ulcer Cleansing Soap and Water -Foul Odor after Cleansing No -Anesthetic Used 4% Lidocaine Solution #1 SACRAL -Current Size (cm) - Length 2.5 -Current Size (cm) - Width 3 -Current Size (cm) - Depth 2.8 -Total Square Cm 7.5 -Exudate Amt Small -Exudate Type Serosanguineous -Wound Margin Distinct, Outline Attached -Granulation Amt Large (67-100%) -Granulation Quality Red -Necrosis Amt Small (1-33%) -Necrotic Tissue Type Adherent Slough -Structure Exposed N/A -Texture (Makenzie-wound Skin Appearance) Excoriation, Scarring -Moisture (Makenzie-wound Skin Appearance) No Abnormality -Color (Makenzie-wound Skin Appearance) No Abnormality -Temperature (Makenzie-wound Skin No Abnormality Appearance) (Pt Warm) -Ulcer Cleansing Soap and Water -Foul Odor after Cleansing No -Anesthetic Used 4% Lidocaine Solution WC - Nurse 2 - General Ulcer CM Notes Start: 03/30/25 13:28 Freq: Status: Active Protocol: Activity Type Activity Date Activity User E-sign Co-sign Detail Recorded Client Recorded Date Recorded By Document 04/05/25 13:52 [id number] 04/05/25 14:02 04/05/25 13:52 Wound Center Nurse 2 #2- R BUTTOCK -Time 13:52 -Correct Patient Yes -Correct Side, Site, Position Yes -Correct Procedure Yes -Procedure Performed Yes -Type of Procedure Debridement -Clinical Debridement Subcutaneous -Tissue Removed Subcutaneous -Post Debridement (cm) - Length 2.2 -Post Debridement (cm) - Width 3.0 -Post Debridement (cm) - Depth 0.4 -Total Square (Post) (cm) 6.60 -Area of Debridement (cm) - Length 2.2 -Area of Debridement (cm) - Width 3.0 -Total Square (Area) (cm) 6.60 -Tunneling No -Undermining/Tunneling No -Circular Undermining No -Wound/Ulcer Outcome Not Healed -Ulcer Cleansing Rinsed/ Irrigated with Saline -Foul Odor after Cleansing No -Bioengineered Tissue No -Bleeding Controlled with Pressure -Treatment Response Procedure Tolerated Well -Offloading No -Debridement - Subq, 1st 20sq cm No #1 SACRAL -Time 13:53 -Correct Patient Yes -Correct Side, Site, Position Yes -Correct Procedure Yes -Procedure Performed Yes -Type of Procedure Debridement -Clinical Debridement Subcutaneous -Tissue Removed Subcutaneous -Post Debridement (cm) - Length 1.6 -Post Debridement (cm) - Width 1.8 -Post Debridement (cm) - Depth 3.2 -Total Square (Post) (cm) 2.88 -Area of Debridement (cm) - Length 1.6 -Area of Debridement (cm) - Width 1.8 -Total Square (Area) (cm) 2.88 -Tunneling No -Undermining/Tunneling No -Circular Undermining No -Wound/Ulcer Outcome Not Healed -Ulcer Cleansing Rinsed/ Irrigated with Saline -Foul Odor after Cleansing No -Bioengineered Tissue No -Bleeding Controlled with Pressure -Treatment Response Procedure Tolerated Well -Offloading No -Debridement - Subq, 1st 20sq cm Yes Pain Scale: 0-10 Numeric Is Patient Pain Free? No Pain Scale: Adult NonVerbal Is Patient Pain Free? No Face Frequent Grimace, Tearing, Frowning, Wrinkled Forehead Activity (Movement) Restless, excessive activity and/or withdrawl reflexes Guarding Rigid, Stiff Physiology (Vital Signs) Stable Vital Signs Respiratory Baseline RR/ SpO2; Compliant with Ventilator Pain Intensity 6 Pain Aggravating Factors Debridement Alleviating Factors/Interventions Medication,Will continue to monitor, Emotional Support Comments Lidocaine used - Nurse 3 - General Ulcer D/C NN Start: 03/30/25 13:28 Freq: Status: Active Protocol: Activity Type Activity Date Activity User E-sign Co-sign Detail Recorded Client Recorded Date Recorded By Document 04/05/25 14:17 [id number] 04/05/25 14:31 KW 04/05/25 14:17 Wound Care Center Nurse 3 #2- R BUTTOCK -Negative Pressure Wound Therapy Continue -Pieces of Black Foam Inserted 5 -NPWT Application Charge NPWT & Debridement (nc ) -Setting (mmHg) 125 -Negative Pressure is Continuous #1 SACRAL -Foul Odor after Cleansing Yes -Negative Pressure Wound Therapy Continue -NPWT Application Charge NPWT - Multiple Locations -Setting (mmHg) 125 -Negative Pressure is Continuous Pain Scale: 0-10 Numeric Is Patient Pain Free? Yes WC - Visit Discharge Discharge Condition Stable Ambulatory Status Wheelchair Transportation Private Auto Medication Reconcilliation completed & No provided to patient/care provider Clinical Summary of Care Provided Yes Assessment/Plan Assessment/Plan (1) Decubitus ulcer of right buttock, stage 4: CODE(S): L89.314 - Pressure ulcer of right buttock, 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: CODE(S): G80.8 - Other cerebral palsy (3) Incontinence of urine: CODE(S): R32 - Unspecified urinary incontinence QUALIFIERS: Urinary Incontinence type: continuous leakage Qualified Code(s): N39.45 - Continuous leakage (4) Fecal incontinence: CODE(S): R15.9 - Full incontinence of feces QUALIFIERS: Fecal incontinence type: unspecified Qualified Code(s): R15.9 - Full incontinence of feces (5) Malnutrition: CODE(S): E46 - Unspecified protein-calorie malnutrition QUALIFIERS: Malnutrition type: protein-calorie malnutrition Protein-calorie malnutrition severity: moderate Qualified Code(s): E44.0 - Moderate protein-calorie malnutrition PLAN: Plan Updated wound culture 03/29/25 had rare growth of enterococcus faecalis and avium, corynebacterium striatum (contaminant), pseudomonas aeruginosa, proteus mirabilis, klebsiella aerogenes, prevotella bivia, and unspecified anaerobic species. Patient's mother reports she only ever sees improvement with IV antibiotics; given multi-species growth and patient's complexity and tapping to bone with question for osteo will refer to ID for further recommendations. In the meantime, I did review with [facility] inpatient pharmacy to determine oral antibiotic regimen that would be compatible with PEG tube. Will require a regimen of Cipro, Flagyl, and Linezolid to address the various bacteria; however, with her history of reactions feel it would be best to initiate one antibiotic at a time and her mother is in agreement. Will send Cipro oral suspension 500mg BID for now. Pending tolerance will then start Linezolid then Flagyl. The wound itself appears overall stable but given her flushing, discomfort, and tachycardia considered ER evaluation but mother cannot take her this evening as she has other kids at home and no one to watch them. I ordered CBC and BMP. CBC showed slightly elevated WBC at 12.1; BMP showed elevated BUN, low Cr, Na 146 consistent with slight dehydration. Discussed with her mother that if her symptoms worsen in any way or do not improve tomorrow then I advise ER evaluation and she acknowledged understanding. For wound care continue will continue with wound vac application at 125 mmHg as tolerated; if it is felt the vac is source of discomfort could decrease pressure to 100 mmHg. Wound vac is to be changed 3 times weekly, once here and twice at home. With vac changes, do a 30 minute Dakins soak by soaking gauze in Dakins and packing into wound; afterward, reapply vac. Continue Blayne supplementation. Continue offloading efforts with frequent turns, at least every 2 hours. Plan for return to the office in 1 week, call sooner with concerns.
[2025-04-12 13:50] VITALS: BP 96/70; PULSE 106; RESP 16; TEMP 36.7
--- NOTE | 2025-04-12 14:35 | PN.PCM_ITS ---
History of Present Illness Date of Service: 04/12/25 Chief Complaint: R buttock pressure ulceration History of Wound: Marcia Daniel is a 34 y/o female with cerebral palsy who is nonverbal and nonmobile, she has full care from her adoptive mother, Peg, who is present at her appointment today. She saw Jaimee to establish care at the wound center last week; however, due to scheduling difficulties will be transitioning to my care. Peg tells me that she has had this ulceration to some extent for the past ~7 years. They have had wound care previously at a different clinic close to their home but recently decided to change to seek a different approach. She reports around year 2 of the wound a wound vac was tried, but it sounds like there was difficulty maintaining good seal. She reports through the years they have consulted with 4 different surgeons to consider surgical management but each time have opted to continue nonsurgical efforts. She reports that there has never been any known associated fistula; she has never seen any fecal matter or drainage in/around the wound. Patient does not have any history of diverticulitis/colocutaneous fistulas, pilonidal cysts or similar conditions. She reports no foul odor or thick/purulent drainage recently. She reports that Marcia has been on IV antibiotics for this ulceration in the past with PICC/midlines; there was consideration of a port but she was felt to be too high risk for infection with this. 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 though no recent flares in the last year. She does have a low air loss mattress and robust padding in her wheelchair but she is completely nonambulatory. She has a history of malnutrition (relies on feeding tube for nutrition), urine incontinence (she has a long-term sage catheter), fecal incontinence (averages 1 BM per day, Peg reports this is managed quickly to prevent soiling of the wound) iron deficiency anemia, and gall bladder and kidney issues per report. She is currently between PCPs but re-establishing care with an old PCP in April. At last visit here, Jaimee obtained wound cultures and started patient on Cefdinir x 2 weeks per sensitivity results. Peg states they just started these antibiotics yesterday, so far she seems to be tolerating them well. Subjective Subjective Marcia appears better this week compared to last, her mother reports she has seemed more comfortable. She seems to be tolerating the wound vac well and they are able to perform the changes well. She did go to the ER this past Wednesday; had a CT which did not show any evidence of osteomyelitis which was reassuring. She just picked up the Cipro oral solution today so she has not started this yet; there was a delay due to insurance issues. She still does not have an appt with ID; spoke to the ID office and they had not received the fax, this was sent again. Objective Data Objective Data Vital Signs: Vital Signs Temp Pulse Resp BP 98.1 F 106 H 16 96/70 04/12/25 13:50 04/12/25 13:50 04/12/25 13:50 04/12/25 13:50 Charges/Coding Procedures Integumentary [id number]: [id number] Linda musc/fascia 20 sq cm/< Physical Exam Const alert Constitutional Narrative: Nonverbal Resp normal respiratory effort Resp Narrative: O2 supplementation via NC Skin Wound Narrative: R buttock pressure ulceration cluster; Distal ulcer in the cluster near coccyx with depth, taps to bone which is hard and viable in appearance; with probing no apparent tracking; do not appreciate any foul odor, purulent or feculent drainage; no surrounding excess warmth, fluctuance, induration; wound base appears granular and pink. Proximal cluster is more superficial into the subcutaneous tissue with pink/red base without significant drainage/excess warmth/fluctuance/induration. 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 Debridement Note Debridement Note Wound debrided: Decubitus ulcer right sacral Laterality: Right Wound Grade/Stage: Stage IV Type of Debridement: Excisional debridement Anesthesia Used: 5% Lidocaine Gel Depth: to muscle Percentage of wound debrided: 100 Instrument Used: 5mm curette Tissue Removed: Fibrin slough, devitalized tissue Severity: Fat Layer Exposed Amount of bleeding with debridement: Mild Bleeding Controlled with: Compression and gauze Patient tolerated procedure: Patient tolerated procedure well Post-Debridement Measurements and Additional Note: Post-Debridement Measurements/Treatment CAROL - Nurse 1 - General Ulcer Assessment Start: 03/30/25 13:28 Freq: Status: Active Protocol: ROYER Activity Type Activity Date Activity User E-sign Co-sign Detail Recorded Client Recorded Date Recorded By Document 04/05/25 13:24 DL [id number] 04/05/25 13:46 DL Document 04/12/25 13:50 KW [id number] 04/12/25 13:58 KW 04/05/25 04/12/25 13:24 13:50 - Today's Visit Information Type of service Follow-up Visit Follow-up Visit (Physician/GAMB CUTTER (Physician/GAMB CUTTER ) ) Arrival Mode Wheelchair Wheelchair Transfer Assistance Slade Lift Slade Lift Transfer Assist (Other) x2 Patient Identification Verified (Name & Yes Yes ) Patient Requires Transmission-Based No No Precautions Vital Signs Temperature (97.8 F-99.1 F) 98.7 F 98.1 F Temperature Source Temporal Temporal Pulse Rate (60-100) 119 H 106 H Pulse Location Monitor Monitor Respiratory Rate (12-18) 18 16 Respiratory rate source Observation Observation Blood Pressure (90/60-120/80) 113/76 96/70 Blood Pressure Mean (mm Hg) 88 78 Source Monitor Monitor History Since Last Visit- (Skip if this is Patient's initial visit) Have you changed medications since your No No last visit? Any new allergies or adverse reactions No No Had a fall/change in ADL's that may No No increase risk of falls Signs or symptoms of abuse and/or No No neglect since last visit Have you been in the hospital since your No No last visit? Has dressing in place as prescribed Yes Yes Has compression in place as prescribed N/A N/A Has offloadiing in place as prescribed Yes Yes Experienced any changes in pain level or No No management Pain Scale: 0-10 Numeric Is Patient Pain Free? Yes Yes - Nurse 1 - General Ulcer Measurement Start: 03/30/25 13:28 Freq: Status: Active Protocol: Activity Type Activity Date Activity User E-sign Co-sign Detail Recorded Client Recorded Date Recorded By Document 04/05/25 13:24 DL [id number] 04/05/25 13:46 DL Document 04/12/25 13:50 KW [id number] 04/12/25 13:58 04/05/25 04/12/25 13:24 13:50 Wound Center Nurse 1 #2- R BUTTOCK -Current Size (cm) - Length 2 2.5 -Current Size (cm) - Width 1.8 1.8 -Current Size (cm) - Depth 0.1 0.9 -Total Square Cm 3.6 4.50 -Photo Taken Yes -Exudate Amt Small -Exudate Type Serosanguineous Serosanguineous -Wound Margin Distinct, Thickened Outline Attached -Granulation Amt Large (67-100%) -Granulation Quality [place] -Necrosis Amt Small (1-33%) Medium (34-66%) -Necrotic Tissue Type Adherent Slough Adherent Slough -Structure Exposed N/A N/A -Texture (Makenzie-wound Skin Appearance) Excoriation, Friable, Scarring Scarring -Moisture (Makenzie-wound Skin Appearance) No Abnormality No Abnormality -Color (Makenzie-wound Skin Appearance) No Abnormality No Abnormality -Temperature (Makenzie-wound Skin No Abnormality No Abnormality Appearance) (Pt Warm) (Pt Warm) -Tenderness on Palpation (Makenize-wound No Skin Appearance) -Ulcer Cleansing Soap and Water Soap and Water -Foul Odor after Cleansing No No -Anesthetic Used 4% Lidocaine 5% Lidocaine Solution Gel #1 SACRAL -Current Size (cm) - Length 2.5 1 -Current Size (cm) - Width 3 2.5 -Current Size (cm) - Depth 2.8 3 -Total Square Cm 7.5 2.5 -Photo Taken Yes -Exudate Amt Small Medium -Exudate Type Serosanguineous Serosanguineous -Wound Margin Distinct, Distinct, Outline Outline Attached Attached -Granulation Amt Large (67-100%) Medium (34-66%) -Granulation Quality Red Red -Necrosis Amt Small (1-33%) Medium (34-66%) -Necrotic Tissue Type Adherent Slough Adherent Slough -Structure Exposed N/A N/A -Texture (Makenzie-wound Skin Appearance) Excoriation, Friable, Scarring Scarring -Moisture (Makenzie-wound Skin Appearance) No Abnormality No Abnormality -Color (Makenzie-wound Skin Appearance) No Abnormality No Abnormality -Temperature (Makenzie-wound Skin No Abnormality No Abnormality Appearance) (Pt Warm) (Pt Warm) -Tenderness on Palpation (Makenzie-wound No Skin Appearance) -Ulcer Cleansing Soap and Water Soap and Water -Foul Odor after Cleansing No No -Anesthetic Used 4% Lidocaine 5% Lidocaine Solution Gel WC - Nurse 2 - General Ulcer CM Notes Start: 03/30/25 13:28 Freq: Status: Active Protocol: Activity Type Activity Date Activity User E-sign Co-sign Detail Recorded Client Recorded Date Recorded By Document 04/05/25 13:52 [id number] 04/05/25 14:02 Document 04/12/25 14:05 [id number] 04/12/25 14:16 04/05/25 04/12/25 13:52 14:05 Wound Center Nurse 2 #2- R BUTTOCK -Time 13:52 14:06 -Correct Patient Yes Yes -Correct Side, Site, Position Yes Yes -Correct Procedure Yes Yes -Procedure Performed Yes Yes -Type of Procedure Debridement Debridement -Clinical Debridement Subcutaneous Muscle / Fascia -Tissue Removed Subcutaneous Muscle -Post Debridement (cm) - Length 2.2 2.0 -Post Debridement (cm) - Width 3.0 2.4 -Post Debridement (cm) - Depth 0.4 0.6 -Total Square (Post) (cm) 6.60 4.80 -Area of Debridement (cm) - Length 2.2 2.0 -Area of Debridement (cm) - Width 3.0 2.4 -Total Square (Area) (cm) 6.60 4.80 -Tunneling No No -Undermining/Tunneling No No -Circular Undermining No No -Wound/Ulcer Outcome Not Healed Not Healed -Ulcer Cleansing Rinsed/ Rinsed/ Irrigated with Irrigated with Saline Saline -Foul Odor after Cleansing No No -Bioengineered Tissue No No -Bleeding Controlled with Pressure Pressure -Treatment Response Procedure Procedure Tolerated Well Tolerated Well -Offloading No No -Assistive Device(s) Wheelchair -Pressure Reduction Wheelchair cushion -Debridement - Subq, 1st 20sq cm No -Debridement - Muscle / Fascia, 1st No 20sq cm #1 SACRAL -Time 13:53 14:06 -Correct Patient Yes Yes -Correct Side, Site, Position Yes Yes -Correct Procedure Yes Yes -Procedure Performed Yes Yes -Type of Procedure Debridement Debridement -Clinical Debridement Subcutaneous Muscle / Fascia -Tissue Removed Subcutaneous Muscle -Post Debridement (cm) - Length 1.6 2.7 -Post Debridement (cm) - Width 1.8 1.6 -Post Debridement (cm) - Depth 3.2 2.6 -Total Square (Post) (cm) 2.88 4.32 -Area of Debridement (cm) - Length 1.6 2.7 -Area of Debridement (cm) - Width 1.8 1.6 -Total Square (Area) (cm) 2.88 4.32 -Tunneling No No -Undermining/Tunneling No No -Circular Undermining No No -Wound/Ulcer Outcome Not Healed Not Healed -Ulcer Cleansing Rinsed/ Rinsed/ Irrigated with Irrigated with Saline Saline -Foul Odor after Cleansing No No -Bioengineered Tissue No No -Bleeding Controlled with Pressure Pressure -Treatment Response Procedure Procedure Tolerated Well Tolerated Well -Offloading No No -Assistive Device(s) Wheelchair -Pressure Reduction Wheelchair cushion -Debridement - Subq, 1st 20sq cm Yes -Debridement - Muscle / Fascia, 1st Yes 20sq cm Pain Scale: 0-10 Numeric Is Patient Pain Free? No Yes Pain Scale: Adult NonVerbal Is Patient Pain Free? No Face Frequent Grimace, Tearing, Frowning, Wrinkled Forehead Activity (Movement) Restless, excessive activity and/or withdrawl reflexes Guarding Rigid, Stiff Physiology (Vital Signs) Stable Vital Signs Respiratory Baseline RR/ SpO2; Compliant with Ventilator Pain Intensity 6 Pain Aggravating Factors Debridement Alleviating Factors/Interventions Medication,Will continue to monitor, Emotional Support Comments Lidocaine used WC - Nurse 3 - General Ulcer D/C NN Start: 03/30/25 13:28 Freq: Status: Active Protocol: Activity Type Activity Date Activity User E-sign Co-sign Detail Recorded Client Recorded Date Recorded By Document 04/05/25 14:17 KW [id number] 04/05/25 14:31 KW Edit Result 04/05/25 14:17 KW (1) [id number] 04/11/25 15:41 KW (1) #2- R BUTTOCK - NPWT Application Charge NPWT & Debridement => NPWT > 50 sq cm ($ (nc) => ) 04/05/25 14:17 Wound Care Center Nurse 3 #2- R BUTTOCK -Negative Pressure Wound Therapy Continue -Pieces of Black Foam Inserted 5 -NPWT Application Charge NPWT > 50 sq cm ($) -Setting (mmHg) 125 -Negative Pressure is Continuous #1 SACRAL -Foul Odor after Cleansing Yes -Negative Pressure Wound Therapy Continue -NPWT Application Charge NPWT - Multiple Locations -Setting (mmHg) 125 -Negative Pressure is Continuous Pain Scale: 0-10 Numeric Is Patient Pain Free? Yes WC - Visit Discharge Discharge Condition Stable Ambulatory Status Wheelchair Transportation Private Auto Medication Reconcilliation completed & No provided to patient/care provider Clinical Summary of Care Provided Yes Additional Wound Wound debrided: Decubitus ulcer R gluteal Laterality: Right Type of Debridement: Excisional debridement Anesthesia Used: 4% Lidocaine Solution Depth: Down to and including healthy tissue and in the subcutaneous layer Percentage of wound debrided: 100 Instrument Used: 5mm curette Tissue Removed: slough, devitalized tissue Severity: Fat Layer Exposed Amount of bleeding with debridement: Mild Bleeding Controlled with: Pressure Assessment/Plan Assessment/Plan (1) Decubitus ulcer of right buttock, stage 4: CODE(S): L89.314 - Pressure ulcer of right buttock, 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: CODE(S): G80.8 - Other cerebral palsy (3) Incontinence of urine: CODE(S): R32 - Unspecified urinary incontinence QUALIFIERS: Urinary Incontinence type: continuous leakage Qualified Code(s): N39.45 - Continuous leakage (4) Fecal incontinence: CODE(S): R15.9 - Full incontinence of feces QUALIFIERS: Fecal incontinence type: unspecified Qualified Code(s): R15.9 - Full incontinence of feces (5) Malnutrition: CODE(S): E46 - Unspecified protein-calorie malnutrition QUALIFIERS: Malnutrition type: protein-calorie malnutrition P rotein-calorie malnutrition severity: moderate Qualified Code(s): E44.0 - Moderate protein-calorie malnutrition (6) Decubitus ulcer of sacral area: CODE(S): L89.159 - Pressure ulcer of sacral region, unspecified stage QUALIFIERS: Pressure injury stage: stage 4 Qualified Code(s): L89.154 - Pressure ulcer of sacral region, stage 4 PLAN: Plan Updated wound culture 03/29/25 had rare growth of enterococcus faecalis and avium, corynebacterium striatum (contaminant), pseudomonas aeruginosa, proteus mirabilis, klebsiella aerogenes, prevotella bivia, and unspecified anaerobic species. Patient's mother reports she only ever sees improvement with IV antibiotics; given multi-species growth and patient's complexity and tapping to bone with question for osteo will refer to ID for further recommendations. In the meantime, I did review with [facility] inpatient pharmacy to determine oral antibiotic regimen that would be compatible with PEG tube. Will require a regimen of Cipro, Flagyl, and Linezolid to address the various bacteria; however, with her history of reactions feel it would be best to initiate one antibiotic at a time and her mother is in agreement. Cipro was sent last week, she just received today and has not started it. Will start Cipro today and monitor for adverse reaction over the next 5-7 days before starting Linezolid. I will send Linezolid Rx now so hopefully it will be ready for mushroom picker by time she is ready for it. For wound care continue will continue with wound vac application at 125 mmHg as tolerated; if it is felt the vac is source of discomfort could decrease pressure to 100 mmHg. Wound vac is to be changed 3 times weekly, once here and twice at home. With vac changes, do a 30 minute Dakins soak by soaking gauze in Dakins and packing into wound; afterward, reapply vac. She does have an area of skin breakdown on the edge of the vac dressing, will apply hydrocolloid patch over this area with vac changes to protect. Continue Blayne supplementation. Continue offloading efforts with frequent turns, at least every 2 hours. Plan for return to the office in 1 week, call sooner with concerns.
--- NOTE | 2025-04-12 14:35 | PN.PCM_ITS ---
History of Present Illness Date of Service: 04/12/25 Chief Complaint: R buttock pressure ulceration History of Wound: Marcia Daniel is a 34 y/o female with cerebral palsy who is nonverbal and nonmobile, she has full care from her adoptive mother, Peg, who is present at her appointment today. She saw Jaimee to establish care at the wound center last week; however, due to scheduling difficulties will be transitioning to my care. Peg tells me that she has had this ulceration to some extent for the past ~7 years. They have had wound care previously at a different clinic close to their home but recently decided to change to seek a different approach. She reports around year 2 of the wound a wound vac was tried, but it sounds like there was difficulty maintaining good seal. She reports through the years they have consulted with 4 different surgeons to consider surgical management but each time have opted to continue nonsurgical efforts. She reports that there has never been any known associated fistula; she has never seen any fecal matter or drainage in/around the wound. Patient does not have any history of diverticulitis/colocutaneous fistulas, pilonidal cysts or similar conditions. She reports no foul odor or thick/purulent drainage recently. She reports that Marcia has been on IV antibiotics for this ulceration in the past with PICC/midlines; there was consideration of a port but she was felt to be too high risk for infection with this. 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 though no recent flares in the last year. She does have a low air loss mattress and robust padding in her wheelchair but she is completely nonambulatory. She has a history of malnutrition (relies on feeding tube for nutrition), urine incontinence (she has a long-term sage catheter), fecal incontinence (averages 1 BM per day, Peg reports this is managed quickly to prevent soiling of the wound) iron deficiency anemia, and gall bladder and kidney issues per report. She is currently between PCPs but re-establishing care with an old PCP in April. At last visit here, Jaimee obtained wound cultures and started patient on Cefdinir x 2 weeks per sensitivity results. Peg states they just started these antibiotics yesterday, so far she seems to be tolerating them well. Subjective Subjective Marcia appears better this week compared to last, her mother reports she has seemed more comfortable. She seems to be tolerating the wound vac well and they are able to perform the changes well. She did go to the ER this past Wednesday; had a CT which did not show any evidence of osteomyelitis which was reassuring. She just picked up the Cipro oral solution today so she has not started this yet; there was a delay due to insurance issues. She still does not have an appt with ID; spoke to the ID office and they had not received the fax, this was sent again. Objective Data Objective Data Vital Signs: Vital Signs Temp Pulse Resp BP 98.1 F 106 H 16 96/70 04/12/25 13:50 04/12/25 13:50 04/12/25 13:50 04/12/25 13:50 Charges/Coding Procedures Integumentary [id number]: [id number] Linda musc/fascia 20 sq cm/< Physical Exam Const alert Constitutional Narrative: Nonverbal Resp normal respiratory effort Resp Narrative: O2 supplementation via NC Skin Wound Narrative: R buttock pressure ulceration cluster; Distal ulcer in the cluster near coccyx with depth, taps to bone which is hard and viable in appearance; with probing no apparent tracking; do not appreciate any foul odor, purulent or feculent drainage; no surrounding excess warmth, fluctuance, induration; wound base appears granular and pink. Proximal cluster is more superficial into the subcutaneous tissue with pink/red base without significant drainage/excess warmth/fluctuance/induration. 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 Debridement Note Debridement Note Wound debrided: Decubitus ulcer right sacral Laterality: Right Wound Grade/Stage: Stage IV Type of Debridement: Excisional debridement Anesthesia Used: 5% Lidocaine Gel Depth: to muscle Percentage of wound debrided: 100 Instrument Used: 5mm curette Tissue Removed: Fibrin slough, devitalized tissue Severity: Fat Layer Exposed Amount of bleeding with debridement: Mild Bleeding Controlled with: Compression and gauze Patient tolerated procedure: Patient tolerated procedure well Post-Debridement Measurements and Additional Note: Post-Debridement Measurements/Treatment CAROL - Nurse 1 - General Ulcer Assessment Start: 03/30/25 13:28 Freq: Status: Active Protocol: ROYER Activity Type Activity Date Activity User E-sign Co-sign Detail Recorded Client Recorded Date Recorded By Document 04/05/25 13:24 DL [id number] 04/05/25 13:46 DL Document 04/12/25 13:50 KW [id number] 04/12/25 13:58 KW 04/05/25 04/12/25 13:24 13:50 - Today's Visit Information Type of service Follow-up Visit Follow-up Visit (Physician/LEAD ANDROID DEVELOPER (Physician/LEAD ANDROID DEVELOPER ) ) Arrival Mode Wheelchair Wheelchair Transfer Assistance Slade Lift Slade Lift Transfer Assist (Other) x2 Patient Identification Verified (Name & Yes Yes ) Patient Requires Transmission-Based No No Precautions Vital Signs Temperature (97.8 F-99.1 F) 98.7 F 98.1 F Temperature Source Temporal Temporal Pulse Rate (60-100) 119 H 106 H Pulse Location Monitor Monitor Respiratory Rate (12-18) 18 16 Respiratory rate source Observation Observation Blood Pressure (90/60-120/80) 113/76 96/70 Blood Pressure Mean (mm Hg) 88 78 Source Monitor Monitor History Since Last Visit- (Skip if this is Patient's initial visit) Have you changed medications since your No No last visit? Any new allergies or adverse reactions No No Had a fall/change in ADL's that may No No increase risk of falls Signs or symptoms of abuse and/or No No neglect since last visit Have you been in the hospital since your No No last visit? Has dressing in place as prescribed Yes Yes Has compression in place as prescribed N/A N/A Has offloadiing in place as prescribed Yes Yes Experienced any changes in pain level or No No management Pain Scale: 0-10 Numeric Is Patient Pain Free? Yes Yes - Nurse 1 - General Ulcer Measurement Start: 03/30/25 13:28 Freq: Status: Active Protocol: Activity Type Activity Date Activity User E-sign Co-sign Detail Recorded Client Recorded Date Recorded By Document 04/05/25 13:24 DL [id number] 04/05/25 13:46 DL Document 04/12/25 13:50 KW [id number] 04/12/25 13:58 04/05/25 04/12/25 13:24 13:50 Wound Center Nurse 1 #2- R BUTTOCK -Current Size (cm) - Length 2 2.5 -Current Size (cm) - Width 1.8 1.8 -Current Size (cm) - Depth 0.1 0.9 -Total Square Cm 3.6 4.50 -Photo Taken Yes -Exudate Amt Small -Exudate Type Serosanguineous Serosanguineous -Wound Margin Distinct, Thickened Outline Attached -Granulation Amt Large (67-100%) -Granulation Quality [place] -Necrosis Amt Small (1-33%) Medium (34-66%) -Necrotic Tissue Type Adherent Slough Adherent Slough -Structure Exposed N/A N/A -Texture (Makenzie-wound Skin Appearance) Excoriation, Friable, Scarring Scarring -Moisture (Makenzie-wound Skin Appearance) No Abnormality No Abnormality -Color (Makenzie-wound Skin Appearance) No Abnormality No Abnormality -Temperature (Makenzie-wound Skin No Abnormality No Abnormality Appearance) (Pt Warm) (Pt Warm) -Tenderness on Palpation (Makenzie-wound No Skin Appearance) -Ulcer Cleansing Soap and Water Soap and Water -Foul Odor after Cleansing No No -Anesthetic Used 4% Lidocaine 5% Lidocaine Solution Gel #1 SACRAL -Current Size (cm) - Length 2.5 1 -Current Size (cm) - Width 3 2.5 -Current Size (cm) - Depth 2.8 3 -Total Square Cm 7.5 2.5 -Photo Taken Yes -Exudate Amt Small Medium -Exudate Type Serosanguineous Serosanguineous -Wound Margin Distinct, Distinct, Outline Outline Attached Attached -Granulation Amt Large (67-100%) Medium (34-66%) -Granulation Quality Red Red -Necrosis Amt Small (1-33%) Medium (34-66%) -Necrotic Tissue Type Adherent Slough Adherent Slough -Structure Exposed N/A N/A -Texture (Makenzie-wound Skin Appearance) Excoriation, Friable, Scarring Scarring -Moisture (Makenzie-wound Skin Appearance) No Abnormality No Abnormality -Color (Makenzie-wound Skin Appearance) No Abnormality No Abnormality -Temperature (Makenzie-wound Skin No Abnormality No Abnormality Appearance) (Pt Warm) (Pt Warm) -Tenderness on Palpation (Makenzie-wound No Skin Appearance) -Ulcer Cleansing Soap and Water Soap and Water -Foul Odor after Cleansing No No -Anesthetic Used 4% Lidocaine 5% Lidocaine Solution Gel WC - Nurse 2 - General Ulcer CM Notes Start: 03/30/25 13:28 Freq: Status: Active Protocol: Activity Type Activity Date Activity User E-sign Co-sign Detail Recorded Client Recorded Date Recorded By Document 04/05/25 13:52 [id number] 04/05/25 14:02 Document 04/12/25 14:05 [id number] 04/12/25 14:16 04/05/25 04/12/25 13:52 14:05 Wound Center Nurse 2 #2- R BUTTOCK -Time 13:52 14:06 -Correct Patient Yes Yes -Correct Side, Site, Position Yes Yes -Correct Procedure Yes Yes -Procedure Performed Yes Yes -Type of Procedure Debridement Debridement -Clinical Debridement Subcutaneous Muscle / Fascia -Tissue Removed Subcutaneous Muscle -Post Debridement (cm) - Length 2.2 2.0 -Post Debridement (cm) - Width 3.0 2.4 -Post Debridement (cm) - Depth 0.4 0.6 -Total Square (Post) (cm) 6.60 4.80 -Area of Debridement (cm) - Length 2.2 2.0 -Area of Debridement (cm) - Width 3.0 2.4 -Total Square (Area) (cm) 6.60 4.80 -Tunneling No No -Undermining/Tunneling No No -Circular Undermining No No -Wound/Ulcer Outcome Not Healed Not Healed -Ulcer Cleansing Rinsed/ Rinsed/ Irrigated with Irrigated with Saline Saline -Foul Odor after Cleansing No No -Bioengineered Tissue No No -Bleeding Controlled with Pressure Pressure -Treatment Response Procedure Procedure Tolerated Well Tolerated Well -Offloading No No -Assistive Device(s) Wheelchair -Pressure Reduction Wheelchair cushion -Debridement - Subq, 1st 20sq cm No -Debridement - Muscle / Fascia, 1st No 20sq cm #1 SACRAL -Time 13:53 14:06 -Correct Patient Yes Yes -Correct Side, Site, Position Yes Yes -Correct Procedure Yes Yes -Procedure Performed Yes Yes -Type of Procedure Debridement Debridement -Clinical Debridement Subcutaneous Muscle / Fascia -Tissue Removed Subcutaneous Muscle -Post Debridement (cm) - Length 1.6 2.7 -Post Debridement (cm) - Width 1.8 1.6 -Post Debridement (cm) - Depth 3.2 2.6 -Total Square (Post) (cm) 2.88 4.32 -Area of Debridement (cm) - Length 1.6 2.7 -Area of Debridement (cm) - Width 1.8 1.6 -Total Square (Area) (cm) 2.88 4.32 -Tunneling No No -Undermining/Tunneling No No -Circular Undermining No No -Wound/Ulcer Outcome Not Healed Not Healed -Ulcer Cleansing Rinsed/ Rinsed/ Irrigated with Irrigated with Saline Saline -Foul Odor after Cleansing No No -Bioengineered Tissue No No -Bleeding Controlled with Pressure Pressure -Treatment Response Procedure Procedure Tolerated Well Tolerated Well -Offloading No No -Assistive Device(s) Wheelchair -Pressure Reduction Wheelchair cushion -Debridement - Subq, 1st 20sq cm Yes -Debridement - Muscle / Fascia, 1st Yes 20sq cm Pain Scale: 0-10 Numeric Is Patient Pain Free? No Yes Pain Scale: Adult NonVerbal Is Patient Pain Free? No Face Frequent Grimace, Tearing, Frowning, Wrinkled Forehead Activity (Movement) Restless, excessive activity and/or withdrawl reflexes Guarding Rigid, Stiff Physiology (Vital Signs) Stable Vital Signs Respiratory Baseline RR/ SpO2; Compliant with Ventilator Pain Intensity 6 Pain Aggravating Factors Debridement Alleviating Factors/Interventions Medication,Will continue to monitor, Emotional Support Comments Lidocaine used WC - Nurse 3 - General Ulcer D/C NN Start: 03/30/25 13:28 Freq: Status: Active Protocol: Activity Type Activity Date Activity User E-sign Co-sign Detail Recorded Client Recorded Date Recorded By Document 04/05/25 14:17 KW [id number] 04/05/25 14:31 KW Edit Result 04/05/25 14:17 KW (1) [id number] 04/11/25 15:41 KW (1) #2- R BUTTOCK - NPWT Application Charge NPWT & Debridement => NPWT > 50 sq cm ($ (nc) => ) 04/05/25 14:17 Wound Care Center Nurse 3 #2- R BUTTOCK -Negative Pressure Wound Therapy Continue -Pieces of Black Foam Inserted 5 -NPWT Application Charge NPWT > 50 sq cm ($) -Setting (mmHg) 125 -Negative Pressure is Continuous #1 SACRAL -Foul Odor after Cleansing Yes -Negative Pressure Wound Therapy Continue -NPWT Application Charge NPWT - Multiple Locations -Setting (mmHg) 125 -Negative Pressure is Continuous Pain Scale: 0-10 Numeric Is Patient Pain Free? Yes WC - Visit Discharge Discharge Condition Stable Ambulatory Status Wheelchair Transportation Private Auto Medication Reconcilliation completed & No provided to patient/care provider Clinical Summary of Care Provided Yes Additional Wound Wound debrided: Decubitus ulcer R gluteal Laterality: Right Type of Debridement: Excisional debridement Anesthesia Used: 4% Lidocaine Solution Depth: Down to and including healthy tissue and in the subcutaneous layer Percentage of wound debrided: 100 Instrument Used: 5mm curette Tissue Removed: slough, devitalized tissue Severity: Fat Layer Exposed Amount of bleeding with debridement: Mild Bleeding Controlled with: Pressure Assessment/Plan Assessment/Plan (1) Decubitus ulcer of right buttock, stage 4: CODE(S): L89.314 - Pressure ulcer of right buttock, 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: CODE(S): G80.8 - Other cerebral palsy (3) Incontinence of urine: CODE(S): R32 - Unspecified urinary incontinence QUALIFIERS: Urinary Incontinence type: continuous leakage Qualified Code(s): N39.45 - Continuous leakage (4) Fecal incontinence: CODE(S): R15.9 - Full incontinence of feces QUALIFIERS: Fecal incontinence type: unspecified Qualified Code(s): R15.9 - Full incontinence of feces (5) Malnutrition: CODE(S): E46 - Unspecified protein-calorie malnutrition QUALIFIERS: Malnutrition type: protein-calorie malnutrition P rotein-calorie malnutrition severity: moderate Qualified Code(s): E44.0 - Moderate protein-calorie malnutrition (6) Decubitus ulcer of sacral area: CODE(S): L89.159 - Pressure ulcer of sacral region, unspecified stage QUALIFIERS: Pressure injury stage: stage 4 Qualified Code(s): L89.154 - Pressure ulcer of sacral region, stage 4 PLAN: Plan Updated wound culture 03/29/25 had rare growth of enterococcus faecalis and avium, corynebacterium striatum (contaminant), pseudomonas aeruginosa, proteus mirabilis, klebsiella aerogenes, prevotella bivia, and unspecified anaerobic species. Patient's mother reports she only ever sees improvement with IV antibiotics; given multi-species growth and patient's complexity and tapping to bone with question for osteo will refer to ID for further recommendations. In the meantime, I did review with [facility] inpatient pharmacy to determine oral antibiotic regimen that would be compatible with PEG tube. Will require a regimen of Cipro, Flagyl, and Linezolid to address the various bacteria; however, with her history of reactions feel it would be best to initiate one antibiotic at a time and her mother is in agreement. Cipro was sent last week, she just received today and has not started it. Will start Cipro today and monitor for adverse reaction over the next 5-7 days before starting Linezolid. 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 For wound care continue will continue with wound vac application at 125 mmHg as tolerated; if it is felt the vac is source of discomfort could decrease pressure to 100 mmHg. Wound vac is to be changed 3 times weekly, once here and twice at home. With vac changes, do a 30 minute Dakins soak by soaking gauze in Dakins and packing into wound; afterward, reapply vac. She does have an area of skin breakdown on the edge of the vac dressing, will apply hydrocolloid patch over this area with vac changes to protect. Continue Bl[place]ne supplementation. Continue offloading efforts with frequent turns, at least every 2 hours. Plan for return to the office in 1 week, call sooner with concerns.
--- NOTE | 2025-04-13 08:30 | WC ---
PHOTO-RIGHT BUTTOCKS 04/12/25
--- NOTE | 2025-04-13 08:30 | WC ---
PHOTO-RIGHT BUTTOCKS 04/12/25
--- NOTE | 2025-04-13 08:30 | WC ---
PHOTO-SACRAL/RIGHT BUTTOCKS 04/12/25
--- NOTE | 2025-04-13 08:30 | WC ---
PHOTO-SACRAL/RIGHT BUTTOCKS 04/12/25
[2025-04-19 14:41] VITALS: BP 108/75; PULSE 106; RESP 14; TEMP 36.5
--- NOTE | 2025-04-19 17:10 | PCM.WC.PN ---
History of Present Illness Date of Service: 04/19/25 Chief Complaint: R buttock pressure ulceration History of Wound: Marcia Daniel is a 34 y/o female with cerebral palsy who is nonverbal and nonmobile, she has full care from her adoptive mother, Peg, who is present at her appointment today. She saw Jaimee to establish care at the wound center last week; however, due to scheduling difficulties will be transitioning to my care. Peg tells me that she has had this ulceration to some extent for the past ~7 years. They have had wound care previously at a different clinic close to their home but recently decided to change to seek a different approach. She reports around year 2 of the wound a wound vac was tried, but it sounds like there was difficulty maintaining good seal. She reports through the years they have consulted with 4 different surgeons to consider surgical management but each time have opted to continue nonsurgical efforts. She reports that there has never been any known associated fistula; she has never seen any fecal matter or drainage in/around the wound. Patient does not have any history of diverticulitis/colocutaneous fistulas, pilonidal cysts or similar conditions. She reports no foul odor or thick/purulent drainage recently. She reports that Marcia has been on IV antibiotics for this ulceration in the past with PICC/midlines; there was consideration of a port but she was felt to be too high risk for infection with this. 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 though no recent flares in the last year. She does have a low air loss mattress and robust padding in her wheelchair but she is completely nonambulatory. She has a history of malnutrition (relies on feeding tube for nutrition), urine incontinence (she has a long-term sage catheter), fecal incontinence (averages 1 BM per day, Peg reports this is managed quickly to prevent soiling of the wound) iron deficiency anemia, and gall bladder and kidney issues per report. She is currently between PCPs but re-establishing care with an old PCP in April. At last visit here, Jaimee obtained wound cultures and started patient on Cefdinir x 2 weeks per sensitivity results. Peg states they just started these antibiotics yesterday, so far she seems to be tolerating them well. Subjective Subjective Unfortunately, she had adverse reaction to the cipro. Her mother reports that after 1 dose she developed a rash to her face, arms, and torso; she showed a picture with appeared consistent with drug-eruption with erythematous papular rash. She reports this improved with benadryl and hydrocortisone cream after a couple days. She stopped the cipro. She did receive the linezolid but has not started this yet. She does have an appointment with Dr. Krishnamurthy next Wednesday. She otherwise has not had any fevers or other signs of systemic infection. Unfortunately, there has also been difficulty with the wound vac. Nursing here has noted each time they go to remove it the seal is broken and the vac seems to have been off for a while. Taking into consideration that the patient has to travel an hour to get here; mother does not it tends to lose seal almost any time she change position like getting her into the car. She does admit she is having to frequently reinforce it at home. Objective Data Objective Data Vital Signs: Vital Signs Temp Pulse Resp BP O2 Del Method 97.7 F L 106 H 14 108/75 Room Air 04/19/25 14:41 04/19/25 14:41 04/19/25 14:41 04/19/25 14:41 04/19/25 14:41 Oxygen Delivery Method Room Air Charges/Coding Procedures Integumentary [id number]: [id number] Linda musc/fascia 20 sq cm/< Physical Exam Const alert Constitutional Narrative: Nonverbal Resp normal respiratory effort Resp Narrative: O2 supplementation via NC Skin Wound Narrative: R buttock pressure ulceration cluster; Distal ulcer in the cluster near coccyx with depth, taps to bone which is hard and viable in appearance; with probing no apparent tracking; do not appreciate any purulent or feculent drainage; no surrounding excess warmth, fluctuance, induration; wound base appears granular and pink. Proximal cluster is more superficial into the subcutaneous tissue with pink/red base without significant drainage/excess warmth/fluctuance/induration. 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 Debridement Note Debridement Note Wound debrided: Decubitus ulcer right sacral Laterality: Right Wound Grade/Stage: Stage IV Type of Debridement: Excisional debridement Anesthesia Used: 5% Lidocaine Gel Depth: to muscle Percentage of wound debrided: 100 Instrument Used: 5mm curette Tissue Removed: Fibrin slough, devitalized tissue Severity: Fat Layer Exposed Amount of bleeding with debridement: Mild Bleeding Controlled with: Compression and gauze Patient tolerated procedure: Patient tolerated procedure well Post-Debridement Measurements and Additional Note: Post-Debridement Measurements/Treatment WC - Nurse 1 - General Ulcer Assessment Start: 03/30/25 13:28 Freq: Status: Active Protocol: ROYER Activity Type Activity Date Activity User E-sign Co-sign Detail Recorded Client Recorded Date Recorded By Document 04/05/25 13:24 DL [id number] 04/05/25 13:46 DL Document 04/12/25 13:50 KW [id number] 04/12/25 13:58 KW Document 04/19/25 14:41 KW [id number] 04/19/25 14:44 KW 04/05/25 04/12/25 04/19/25 13:24 13:50 14:41 WC - Today's Visit Information Type of service Follow-up Visit Follow-up Visit Follow-up Visit (Physician/COMMUNICATIONS MAINTAINER (Physician/COMMUNICATIONS MAINTAINER (Physician/COMMUNICATIONS MAINTAINER ) ) ) Arrival Mode Wheelchair Wheelchair Wheelchair Transfer Assistance Slade Lift Slade Lift Slade Lift Transfer Assist (Other) x2 Accompanied by mother Patient Identification Verified (Name & Yes Yes Yes ) Patient Requires Transmission-Based No No Precautions Vital Signs Temperature (97.8 F-99.1 F) 98.7 F 98.1 F 97.7 F L Temperature Source Temporal Temporal Temporal Pulse Rate (60-100) 119 H 106 H 106 H Pulse Location Monitor Monitor Monitor Respiratory Rate (12-18) 18 16 14 Respiratory rate source Observation Observation Observation Oxygen Delivery Method Room Air Blood Pressure (90/60-120/80) 113/76 96/70 108/75 Blood Pressure Mean (mm Hg) 88 78 86 Source Monitor Monitor Monitor Position Sitting Blood Pressure Location Right Arm History Since Last Visit- (Skip if this is Patient's initial visit) Have you changed medications since your No No No last visit? Any new allergies or adverse reactions No No No Had a fall/change in ADL's that may No No No increase risk of falls Signs or symptoms of abuse and/or No No No neglect since last visit Have you been in the hospital since your No No No last visit? Has dressing in place as prescribed Yes Yes Yes Has compression in place as prescribed N/A N/A N/A Has offloadiing in place as prescribed Yes Yes N/A Experienced any changes in pain level or No No No management Left Footwear No Footwear Right Footwear No Footwear Pain Scale: 0-10 Numeric Is Patient Pain Free? Yes Yes Yes WC - Nurse 1 - General Ulcer Measurement Start: 03/30/25 13:28 Freq: Status: Active Protocol: Activity Type Activity Date Activity User E-sign Co-sign Detail Recorded Client Recorded Date Recorded By Document 04/05/25 13:24 DL [id number] 04/05/25 13:46 DL Document 04/12/25 13:50 KW [id number] 04/12/25 13:58 KW Document 04/19/25 14:41 KW [id number] 04/19/25 14:44 KW 04/05/25 04/12/25 04/19/25 13:24 13:50 14:41 Wound Center Nurse 1 #2- R BUTTOCK -Current Size (cm) - Length 2 2.5 2.2 -Current Size (cm) - Width 1.8 1.8 1.7 -Current Size (cm) - Depth 0.1 0.9 0.3 -Total Square Cm 3.6 4.50 3.74 -Photo Taken Yes -Exudate Amt Small Medium -Exudate Type Serosanguineous Serosanguineous Serosanguineous -Wound Margin Distinct, Thickened Thickened & Outline Rolled Under Attached -Granulation Amt Large (67-100%) Large (67-100%) -Granulation Quality Staley Red -Necrosis Amt Small (1-33%) Medium (34-66%) -Necrotic Tissue Type Adherent Slough Adherent Slough -Structure Exposed N/A N/A -Texture (Makenzie-wound Skin Appearance) Excoriation, Friable, Assessed Scarring Scarring -Moisture (Makenzie-wound Skin Appearance) No Abnormality No Abnormality Assessed -Color (Makenzie-wound Skin Appearance) No Abnormality No Abnormality Assessed -Temperature (Makenzie-wound Skin No Abnormality No Abnormality No Abnormality Appearance) (Pt Warm) (Pt Warm) (Pt Warm) -Tenderness on Palpation (Makenzie-wound No No Skin Appearance) -Ulcer Cleansing Soap and Water Soap and Water Soap and Water -Foul Odor after Cleansing No No No -Anesthetic Used 4% Lidocaine 5% Lidocaine 5% Lidocaine Solution Gel Gel #1 SACRAL -Current Size (cm) - Length 2.5 1 2 -Current Size (cm) - Width 3 2.5 2 -Current Size (cm) - Depth 2.8 3 2.8 -Total Square Cm 7.5 2.5 4 -Photo Taken Yes -Exudate Amt Small Medium Medium -Exudate Type Serosanguineous Serosanguineous Serosanguineous -Wound Margin Distinct, Distinct, Distinct, Outline Outline Outline Attached Attached Attached -Granulation Amt Large (67-100%) Medium (34-66%) Large (67-100%) -Granulation Quality Red Red Red -Necrosis Amt Small (1-33%) Medium (34-66%) -Necrotic Tissue Type Adherent Slough Adherent Slough -Structure Exposed N/A N/A -Texture (Makenzie-wound Skin Appearance) Excoriation, Friable, Assessed Scarring Scarring -Moisture (Makenzie-wound Skin Appearance) No Abnormality No Abnormality Assessed -Color (Makenzie-wound Skin Appearance) No Abnormality No Abnormality Assessed, Erythema -Temperature (Makenzie-wound Skin No Abnormality No Abnormality No Abnormality Appearance) (Pt Warm) (Pt Warm) (Pt Warm) -Tenderness on Palpation (Makenzie-wound No No Skin Appearance) -Ulcer Cleansing Soap and Water Soap and Water Soap and Water -Foul Odor after Cleansing No No No -Anesthetic Used 4% Lidocaine 5% Lidocaine 5% Lidocaine Solution Gel Gel WC - Nurse 2 - General Ulcer CM Notes Start: 03/30/25 13:28 Freq: Status: Active Protocol: Activity Type Activity Date Activity User E-sign Co-sign Detail Recorded Client Recorded Date Recorded By Document 04/05/25 13:52 [id number] 04/05/25 14:02 Document 04/12/25 14:05 [id number] 04/12/25 14:16 Document 04/19/25 15:08 [id number] 04/19/25 15:19 04/05/25 04/12/25 04/19/25 13:52 14:05 15:08 Wound Center Nurse 2 #2- R BUTTOCK -Time 13:52 14:06 15:08 -Correct Patient Yes Yes Yes -Correct Side, Site, Position Yes Yes Yes -Correct Procedure Yes Yes Yes -Procedure Performed Yes Yes Yes -Type of Procedure Debridement Debridement Debridement -Clinical Debridement Subcutaneous Muscle / Fascia Muscle / Fascia -Tissue Removed Subcutaneous Muscle Muscle -Post Debridement (cm) - Length 2.2 2.0 1.2 -Post Debridement (cm) - Width 3.0 2.4 2.8 -Post Debridement (cm) - Depth 0.4 0.6 1.0 -Total Square (Post) (cm) 6.60 4.80 3.36 -Area of Debridement (cm) - Length 2.2 2.0 1.2 -Area of Debridement (cm) - Width 3.0 2.4 2.8 -Total Square (Area) (cm) 6.60 4.80 3.36 -Tunneling No No No -Undermining/Tunneling No No No -Circular Undermining No No No -Wound/Ulcer Outcome Not Healed Not Healed Not Healed -Ulcer Cleansing Rinsed/ Rinsed/ Rinsed/ Irrigated with Irrigated with Irrigated with Saline Saline Saline -Foul Odor after Cleansing No No No -Bioengineered Tissue No No No -Bleeding Controlled with Pressure Pressure Pressure -Treatment Response Procedure Procedure Procedure Tolerated Well Tolerated Well Tolerated Well -Offloading No No No -Assistive Device(s) Wheelchair -Pressure Reduction Wheelchair cushion -Debridement - Subq, 1st 20sq cm No -Debridement - Muscle / Fascia, 1st No Yes 20sq cm #1 SACRAL -Time 13:53 14:06 15:18 -Correct Patient Yes Yes Yes -Correct Side, Site, Position Yes Yes Yes -Correct Procedure Yes Yes Yes -Procedure Performed Yes Yes Yes -Type of Procedure Debridement Debridement Debridement -Clinical Debridement Subcutaneous Muscle / Fascia Muscle / Fascia -Tissue Removed Subcutaneous Muscle Muscle -Post Debridement (cm) - Length 1.6 2.7 1.6 -Post Debridement (cm) - Width 1.8 1.6 1.5 -Post Debridement (cm) - Depth 3.2 2.6 2.8 -Total Square (Post) (cm) 2.88 4.32 2.40 -Area of Debridement (cm) - Length 1.6 2.7 1.6 -Area of Debridement (cm) - Width 1.8 1.6 1.5 -Total Square (Area) (cm) 2.88 4.32 2.40 -Tunneling No No No -Undermining/Tunneling No No No -Circular Undermining No No No -Wound/Ulcer Outcome Not Healed Not Healed Not Healed -Ulcer Cleansing Rinsed/ Rinsed/ Rinsed/ Irrigated with Irrigated with Irrigated with Saline Saline Saline -Foul Odor after Cleansing No No No -Bioengineered Tissue No No No -Bleeding Controlled with Pressure Pressure Pressure -Treatment Response Procedure Procedure Procedure Tolerated Well Tolerated Well Tolerated Well -Offloading No No No -Assistive Device(s) Wheelchair -Pressure Reduction Wheelchair cushion -Debridement - Subq, 1st 20sq cm Yes -Debridement - Muscle / Fascia, 1st Yes No 20sq cm Pain Scale: 0-10 Numeric Is Patient Pain Free? No Yes Yes Pain Scale: Adult NonVerbal Is Patient Pain Free? No Face Frequent Grimace, Tearing, Frowning, Wrinkled Forehead Activity (Movement) Restless, excessive activity and/or withdrawl reflexes Guarding Rigid, Stiff Physiology (Vital Signs) Stable Vital Signs Respiratory Baseline RR/ SpO2; Compliant with Ventilator Pain Intensity 6 Pain Aggravating Factors Debridement Alleviating Factors/Interventions Medication,Will continue to monitor, Emotional Support Comments Lidocaine used WC - Nurse 3 - General Ulcer D/C NN Start: 03/30/25 13:28 Freq: Status: Active Protocol: Activity Type Activity Date Activity User E-sign Co-sign Detail Recorded Client Recorded Date Recorded By Document 04/05/25 14:17 KW [id number] 04/05/25 14:31 KW Edit Result 04/05/25 14:17 KW (1) [id number] 04/11/25 15:41 KW Document 04/12/25 14:24 KW [id number] 04/12/25 14:47 KW Document 04/19/25 15:25 KW [id number] 04/19/25 15:26 KW (1) #2- R BUTTOCK - NPWT Application Charge NPWT & Debridement => NPWT > 50 sq cm ($ (nc) => ) 04/05/25 04/12/25 04/19/25 14:17 14:24 15:25 Wound Care Center Nurse 3 #2- R BUTTOCK -Negative Pressure Wound Therapy Continue -Pieces of Black Foam Inserted 5 1 -NPWT Application Charge NPWT > 50 sq cm NPWT & ($) Debridement (nc ) -Setting (mmHg) 125 -Negative Pressure is Continuous -Primary Dressing Applied Hysept -Other Dressing dakins soaked gauze -Primary Dressing Covered/Secured with Dry Gauze, Secured with Tape -Hysept 1 #1 SACRAL -Foul Odor after Cleansing Yes -Negative Pressure Wound Therapy Continue -Pieces of Black Foam Inserted 1 -NPWT Application Charge NPWT - Multiple NPWT - Multiple Locations Locations -Setting (mmHg) 125 -Negative Pressure is Continuous -Primary Dressing Applied Aquacel AG 4x4, Other -Other Dressing duoderm x2 dakins soaked gauze -Primary Dressing Covered/Secured with Dry Gauze, Secured with Tape -Aquacel AG 4x4 2 -Wound Comment(s) aquacel to excoriated area in fold, duoderm for the makenzie Pain Scale: 0-10 Numeric Is Patient Pain Free? Yes Yes Yes WC - Visit Discharge Discharge Condition Stable Stable Stable Ambulatory Status Wheelchair Wheelchair Wheelchair Transportation Private Auto Private Auto Private Auto Medication Reconcilliation completed & No No No provided to patient/care provider Clinical Summary of Care Provided Yes Yes Yes Additional Wound Wound debrided: Decubitus ulcer R gluteal Laterality: Right Type of Debridement: Excisional debridement Anesthesia Used: 4% Lidocaine Solution Depth: Down to and including healthy tissue and in the subcutaneous layer Percentage of wound debrided: 100 Instrument Used: 5mm curette Tissue Removed: slough, devitalized tissue Severity: Fat Layer Exposed Amount of bleeding with debridement: Mild Bleeding Controlled with: Pressure Assessment/Plan Assessment/Plan (1) Decubitus ulcer of right buttock, stage 4: CODE(S): L89.314 - Pressure ulcer of right buttock, 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: CODE(S): G80.8 - Other cerebral palsy (3) Incontinence of urine: CODE(S): R32 - Unspecified urinary incontinence QUALIFIERS: Urinary Incontinence type: continuous leakage Qualified Code(s): N39.45 - Continuous leakage (4) Fecal incontinence: CODE(S): R15.9 - Full incontinence of feces QUALIFIERS: Fecal incontinence type: unspecified Qualified Code(s): R15.9 - Full incontinence of feces (5) Malnutrition: CODE(S): E46 - Unspecified protein-calorie malnutrition QUALIFIERS: Malnutrition type: protein-calorie malnutrition Protein-calorie malnutrition severity: moderate Qualified Code(s): E44.0 - Moderate protein-calorie malnutrition (6) Decubitus ulcer of sacral area: CODE(S): L89.159 - Pressure ulcer of sacral region, unspecified stage QUALIFIERS: Pressure injury stage: stage 4 Qualified Code(s): L89.154 - Pressure ulcer of sacral region, stage 4 PLAN: Plan Updated wound culture 03/29/25 had rare growth of enterococcus faecalis and avium, corynebacterium striatum (contaminant), pseudomonas aeruginosa, proteus mirabilis, klebsiella aerogenes, prevotella bivia, and unspecified anaerobic species. Patient's mother reports she only ever sees improvement with IV antibiotics; given multi-species growth and patient's complexity and tapping to bone with question for osteo will refer to ID for further recommendations. In the meantime, I did review with [facility] inpatient pharmacy to determine oral antibiotic regimen that would be compatible with PEG tube. Will require a regimen of Cipro, Flagyl, and Linezolid to address the various bacteria; however, with her history of reactions feel it would be best to initiate one antibiotic at a time and her mother is in agreement. Cipro was sent last week, unfortunately after 1 dose she had what appears to have been a drug-eruption rash so this was discontinued. Her mother did worm picker the Linezolid but has not started this. At this point, with ID consult next week will hold off on initiating further antibiotics and await their recommendations. Will discontinue wound vac given issues with maintaining consistent seal; will return to packing with dakins-soaked gauze changed twice daily or more often as needed if it becomes soiled. Continue Blayne supplementation. Continue offloading efforts with frequent turns, at least every 2 hours. She is coming in next Wednesday to see ID Dr. Krishnamurthy so will skip appt; I am out the following week so will arrange a courtesy visit with another provider here.
--- NOTE | 2025-04-19 17:10 | PCM.WC.PN ---
History of Present Illness Date of Service: 04/19/25 Chief Complaint: R buttock pressure ulceration History of Wound: Marcia Daniel is a 34 y/o female with cerebral palsy who is nonverbal and nonmobile, she has full care from her adoptive mother, Peg, who is present at her appointment today. She saw Jaimee to establish care at the wound center last week; however, due to scheduling difficulties will be transitioning to my care. Peg tells me that she has had this ulceration to some extent for the past ~7 years. They have had wound care previously at a different clinic close to their home but recently decided to change to seek a different approach. She reports around year 2 of the wound a wound vac was tried, but it sounds like there was difficulty maintaining good seal. She reports through the years they have consulted with 4 different surgeons to consider surgical management but each time have opted to continue nonsurgical efforts. She reports that there has never been any known associated fistula; she has never seen any fecal matter or drainage in/around the wound. Patient does not have any history of diverticulitis/colocutaneous fistulas, pilonidal cysts or similar conditions. She reports no foul odor or thick/purulent drainage recently. She reports that Marcia has been on IV antibiotics for this ulceration in the past with PICC/midlines; there was consideration of a port but she was felt to be too high risk for infection with this. 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 though no recent flares in the last year. She does have a low air loss mattress and robust padding in her wheelchair but she is completely nonambulatory. She has a history of malnutrition (relies on feeding tube for nutrition), urine incontinence (she has a long-term sage catheter), fecal incontinence (averages 1 BM per day, Peg reports this is managed quickly to prevent soiling of the wound) iron deficiency anemia, and gall bladder and kidney issues per report. She is currently between PCPs but re-establishing care with an old PCP in April. At last visit here, Jaimee obtained wound cultures and started patient on Cefdinir x 2 weeks per sensitivity results. Peg states they just started these antibiotics yesterday, so far she seems to be tolerating them well. Subjective Subjective Unfortunately, she had adverse reaction to the cipro. Her mother reports that after 1 dose she developed a rash to her face, arms, and torso; she showed a picture with appeared consistent with drug-eruption with erythematous papular rash. She reports this improved with benadryl and hydrocortisone cream after a couple days. She stopped the cipro. She did receive the linezolid but has not started this yet. She does have an appointment with Dr. Krishnamurthy next Wednesday. She otherwise has not had any fevers or other signs of systemic infection. Unfortunately, there has also been difficulty with the wound vac. Nursing here has noted each time they go to remove it the seal is broken and the vac seems to have been off for a while. Taking into consideration that the patient has to travel an hour to get here; mother does not it tends to lose seal almost any time she change position like getting her into the car. She does admit she is having to frequently reinforce it at home. Objective Data Objective Data Vital Signs: Vital Signs Temp Pulse Resp BP O2 Del Method 97.7 F L 106 H 14 108/75 Room Air 04/19/25 14:41 04/19/25 14:41 04/19/25 14:41 04/19/25 14:41 04/19/25 14:41 Oxygen Delivery Method Room Air Charges/Coding Procedures Integumentary 111xxx-113xx: [id number] Linda musc/fascia 20 sq cm/< Physical Exam Const alert Constitutional Narrative: Nonverbal Resp normal respiratory effort Resp Narrative: O2 supplementation via NC Skin Wound Narrative: R buttock pressure ulceration cluster; Distal ulcer in the cluster near coccyx with depth, taps to bone which is hard and viable in appearance; with probing no apparent tracking; do not appreciate any purulent or feculent drainage; no surrounding excess warmth, fluctuance, induration; wound base appears granular and pink. Proximal cluster is more superficial into the subcutaneous tissue with pink/red base without significant drainage/excess warmth/fluctuance/induration. 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 Debridement Note Debridement Note Wound debrided: Decubitus ulcer right sacral Laterality: Right Wound Grade/Stage: Stage IV Type of Debridement: Excisional debridement Anesthesia Used: 5% Lidocaine Gel Depth: to muscle Percentage of wound debrided: 100 Instrument Used: 5mm curette Tissue Removed: Fibrin slough, devitalized tissue Severity: Fat Layer Exposed Amount of bleeding with debridement: Mild Bleeding Controlled with: Compression and gauze Patient tolerated procedure: Patient tolerated procedure well Post-Debridement Measurements and Additional Note: Post-Debridement Measurements/Treatment WC - Nurse 1 - General Ulcer Assessment Start: 03/30/25 13:28 Freq: Status: Active Protocol: ROYER Activity Type Activity Date Activity User E-sign Co-sign Detail Recorded Client Recorded Date Recorded By Document 04/05/25 13:24 DL [id number] 04/05/25 13:46 DL Document 04/12/25 13:50 KW [id number] 04/12/25 13:58 KW Document 04/19/25 14:41 KW [id number] 04/19/25 14:44 KW 04/05/25 04/12/25 04/19/25 13:24 13:50 14:41 WC - Today's Visit Information Type of service Follow-up Visit Follow-up Visit Follow-up Visit (Physician/BUGGY RUNNER (Physician/BUGGY RUNNER (Physician/BUGGY RUNNER ) ) ) Arrival Mode Wheelchair Wheelchair Wheelchair Transfer Assistance Slade Lift Slade Lift Slade Lift Transfer Assist (Other) x2 Accompanied by mother Patient Identification Verified (Name & Yes Yes Yes ) Patient Requires Transmission-Based No No Precautions Vital Signs Temperature (97.8 F-99.1 F) 98.7 F 98.1 F 97.7 F L Temperature Source Temporal Temporal Temporal Pulse Rate (60-100) 119 H 106 H 106 H Pulse Location Monitor Monitor Monitor Respiratory Rate (12-18) 18 16 14 Respiratory rate source Observation Observation Observation Oxygen Delivery Method Room Air Blood Pressure (90/60-120/80) 113/76 96/70 108/75 Blood Pressure Mean (mm Hg) 88 78 86 Source Monitor Monitor Monitor Position Sitting Blood Pressure Location Right Arm History Since Last Visit- (Skip if this is Patient's initial visit) Have you changed medications since your No No No last visit? Any new allergies or adverse reactions No No No Had a fall/change in ADL's that may No No No increase risk of falls Signs or symptoms of abuse and/or No No No neglect since last visit Have you been in the hospital since your No No No last visit? Has dressing in place as prescribed Yes Yes Yes Has compression in place as prescribed N/A N/A N/A Has offloadiing in place as prescribed Yes Yes N/A Experienced any changes in pain level or No No No management Left Footwear No Footwear Right Footwear No Footwear Pain Scale: 0-10 Numeric Is Patient Pain Free? Yes Yes Yes WC - Nurse 1 - General Ulcer Measurement Start: 03/30/25 13:28 Freq: Status: Active Protocol: Activity Type Activity Date Activity User E-sign Co-sign Detail Recorded Client Recorded Date Recorded By Document 04/05/25 13:24 DL [id number] 04/05/25 13:46 DL Document 04/12/25 13:50 KW [id number] 04/12/25 13:58 KW Document 04/19/25 14:41 KW [id number] 04/19/25 14:44 KW 04/05/25 04/12/25 04/19/25 13:24 13:50 14:41 Wound Center Nurse 1 #2- R BUTTOCK -Current Size (cm) - Length 2 2.5 2.2 -Current Size (cm) - Width 1.8 1.8 1.7 -Current Size (cm) - Depth 0.1 0.9 0.3 -Total Square Cm 3.6 4.50 3.74 -Photo Taken Yes -Exudate Amt Small Medium -Exudate Type Serosanguineous Serosanguineous Serosanguineous -Wound Margin Distinct, Thickened Thickened & Outline Rolled Under Attached -Granulation Amt Large (67-100%) Large (67-100%) -Granulation Quality [place] Red -Necrosis Amt Small (1-33%) Medium (34-66%) -Necrotic Tissue Type Adherent Slough Adherent Slough -Structure Exposed N/A N/A -Texture (Makenzie-wound Skin Appearance) Excoriation, Friable, Assessed Scarring Scarring -Moisture (Makenzie-wound Skin Appearance) No Abnormality No Abnormality Assessed -Color (Makenzie-wound Skin Appearance) No Abnormality No Abnormality Assessed -Temperature (Makenzie-wound Skin No Abnormality No Abnormality No Abnormality Appearance) (Pt Warm) (Pt Warm) (Pt Warm) -Tenderness on Palpation (Makenzie-wound No No Skin Appearance) -Ulcer Cleansing Soap and Water Soap and Water Soap and Water -Foul Odor after Cleansing No No No -Anesthetic Used 4% Lidocaine 5% Lidocaine 5% Lidocaine Solution Gel Gel #1 SACRAL -Current Size (cm) - Length 2.5 1 2 -Current Size (cm) - Width 3 2.5 2 -Current Size (cm) - Depth 2.8 3 2.8 -Total Square Cm 7.5 2.5 4 -Photo Taken Yes -Exudate Amt Small Medium Medium -Exudate Type Serosanguineous Serosanguineous Serosanguineous -Wound Margin Distinct, Distinct, Distinct, Outline Outline Outline Attached Attached Attached -Granulation Amt Large (67-100%) Medium (34-66%) Large (67-100%) -Granulation Quality Red Red Red -Necrosis Amt Small (1-33%) Medium (34-66%) -Necrotic Tissue Type Adherent Slough Adherent Slough -Structure Exposed N/A N/A -Texture (Makenzie-wound Skin Appearance) Excoriation, Friable, Assessed Scarring Scarring -Moisture (Makenzie-wound Skin Appearance) No Abnormality No Abnormality Assessed -Color (Makenzie-wound Skin Appearance) No Abnormality No Abnormality Assessed, Erythema -Temperature (Makenzie-wound Skin No Abnormality No Abnormality No Abnormality Appearance) (Pt Warm) (Pt Warm) (Pt Warm) -Tenderness on Palpation (Makenzie-wound No No Skin Appearance) -Ulcer Cleansing Soap and Water Soap and Water Soap and Water -Foul Odor after Cleansing No No No -Anesthetic Used 4% Lidocaine 5% Lidocaine 5% Lidocaine Solution Gel Gel WC - Nurse 2 - General Ulcer CM Notes Start: 03/30/25 13:28 Freq: Status: Active Protocol: Activity Type Activity Date Activity User E-sign Co-sign Detail Recorded Client Recorded Date Recorded By Document 04/05/25 13:52 [id number] 04/05/25 14:02 Document 04/12/25 14:05 [id number] 04/12/25 14:16 Document 04/19/25 15:08 [id number] 04/19/25 15:19 04/05/25 04/12/25 04/19/25 13:52 14:05 15:08 Wound Center Nurse 2 #2- R BUTTOCK -Time 13:52 14:06 15:08 -Correct Patient Yes Yes Yes -Correct Side, Site, Position Yes Yes Yes -Correct Procedure Yes Yes Yes -Procedure Performed Yes Yes Yes -Type of Procedure Debridement Debridement Debridement -Clinical Debridement Subcutaneous Muscle / Fascia Muscle / Fascia -Tissue Removed Subcutaneous Muscle Muscle -Post Debridement (cm) - Length 2.2 2.0 1.2 -Post Debridement (cm) - Width 3.0 2.4 2.8 -Post Debridement (cm) - Depth 0.4 0.6 1.0 -Total Square (Post) (cm) 6.60 4.80 3.36 -Area of Debridement (cm) - Length 2.2 2.0 1.2 -Area of Debridement (cm) - Width 3.0 2.4 2.8 -Total Square (Area) (cm) 6.60 4.80 3.36 -Tunneling No No No -Undermining/Tunneling No No No -Circular Undermining No No No -Wound/Ulcer Outcome Not Healed Not Healed Not Healed -Ulcer Cleansing Rinsed/ Rinsed/ Rinsed/ Irrigated with Irrigated with Irrigated with Saline Saline Saline -Foul Odor after Cleansing No No No -Bioengineered Tissue No No No -Bleeding Controlled with Pressure Pressure Pressure -Treatment Response Procedure Procedure Procedure Tolerated Well Tolerated Well Tolerated Well -Offloading No No No -Assistive Device(s) Wheelchair -Pressure Reduction Wheelchair cushion -Debridement - Subq, 1st 20sq cm No -Debridement - Muscle / Fascia, 1st No Yes 20sq cm #1 SACRAL -Time 13:53 14:06 15:18 -Correct Patient Yes Yes Yes -Correct Side, Site, Position Yes Yes Yes -Correct Procedure Yes Yes Yes -Procedure Performed Yes Yes Yes -Type of Procedure Debridement Debridement Debridement -Clinical Debridement Subcutaneous Muscle / Fascia Muscle / Fascia -Tissue Removed Subcutaneous Muscle Muscle -Post Debridement (cm) - Length 1.6 2.7 1.6 -Post Debridement (cm) - Width 1.8 1.6 1.5 -Post Debridement (cm) - Depth 3.2 2.6 2.8 -Total Square (Post) (cm) 2.88 4.32 2.40 -Area of Debridement (cm) - Length 1.6 2.7 1.6 -Area of Debridement (cm) - Width 1.8 1.6 1.5 -Total Square (Area) (cm) 2.88 4.32 2.40 -Tunneling No No No -Undermining/Tunneling No No No -Circular Undermining No No No -Wound/Ulcer Outcome Not Healed Not Healed Not Healed -Ulcer Cleansing Rinsed/ Rinsed/ Rinsed/ Irrigated with Irrigated with Irrigated with Saline Saline Saline -Foul Odor after Cleansing No No No -Bioengineered Tissue No No No -Bleeding Controlled with Pressure Pressure Pressure -Treatment Response Procedure Procedure Procedure Tolerated Well Tolerated Well Tolerated Well -Offloading No No No -Assistive Device(s) Wheelchair -Pressure Reduction Wheelchair cushion -Debridement - Subq, 1st 20sq cm Yes -Debridement - Muscle / Fascia, 1st Yes No 20sq cm Pain Scale: 0-10 Numeric Is Patient Pain Free? No Yes Yes Pain Scale: Adult NonVerbal Is Patient Pain Free? No Face Frequent Grimace, Tearing, Frowning, Wrinkled Forehead Activity (Movement) Restless, excessive activity and/or withdrawl reflexes Guarding Rigid, Stiff Physiology (Vital Signs) Stable Vital Signs Respiratory Baseline RR/ SpO2; Compliant with Ventilator Pain Intensity 6 Pain Aggravating Factors Debridement Alleviating Factors/Interventions Medication,Will continue to monitor, Emotional Support Comments Lidocaine used WC - Nurse 3 - General Ulcer D/C NN Start: 03/30/25 13:28 Freq: Status: Active Protocol: Activity Type Activity Date Activity User E-sign Co-sign Detail Recorded Client Recorded Date Recorded By Document 04/05/25 14:17 KW [id number] 04/05/25 14:31 KW Edit Result 04/05/25 14:17 KW (1) [id number] 04/11/25 15:41 KW Document 04/12/25 14:24 KW [id number] 04/12/25 14:47 KW Document 04/19/25 15:25 KW [id number] 04/19/25 15:26 KW (1) #2- R BUTTOCK - NPWT Application Charge NPWT & Debridement => NPWT > 50 sq cm ($ (nc) => ) 04/05/25 04/12/25 04/19/25 14:17 14:24 15:25 Wound Care Center Nurse 3 #2- R BUTTOCK -Negative Pressure Wound Therapy Continue -Pieces of Black Foam Inserted 5 1 -NPWT Application Charge NPWT > 50 sq cm NPWT & ($) Debridement (nc ) -Setting (mmHg) 125 -Negative Pressure is Continuous -Primary Dressing Applied Hysept -Other Dressing dakins soaked gauze -Primary Dressing Covered/Secured with Dry Gauze, Secured with Tape -Hysept 1 #1 SACRAL -Foul Odor after Cleansing Yes -Negative Pressure Wound Therapy Continue -Pieces of Black Foam Inserted 1 -NPWT Application Charge NPWT - Multiple NPWT - Multiple Locations Locations -Setting (mmHg) 125 -Negative Pressure is Continuous -Primary Dressing Applied Aquacel AG 4x4, Other -Other Dressing duoderm x2 dakins soaked gauze -Primary Dressing Covered/Secured with Dry Gauze, Secured with Tape -Aquacel AG 4x4 2 -Wound Comment(s) aquacel to excoriated area in fold, duoderm for the makenzie Pain Scale: 0-10 Numeric Is Patient Pain Free? Yes Yes Yes WC - Visit Discharge Discharge Condition Stable Stable Stable Ambulatory Status Wheelchair Wheelchair Wheelchair Transportation Private Auto Private Auto Private Auto Medication Reconcilliation completed & No No No provided to patient/care provider Clinical Summary of Care Provided Yes Yes Yes Additional Wound Wound debrided: Decubitus ulcer R gluteal Laterality: Right Type of Debridement: Excisional debridement Anesthesia Used: 4% Lidocaine Solution Depth: Down to and including healthy tissue and in the subcutaneous layer Percentage of wound debrided: 100 Instrument Used: 5mm curette Tissue Removed: slough, devitalized tissue Severity: Fat Layer Exposed Amount of bleeding with debridement: Mild Bleeding Controlled with: Pressure Assessment/Plan Assessment/Plan (1) Decubitus ulcer of right buttock, stage 4: CODE(S): L89.314 - Pressure ulcer of right buttock, 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: CODE(S): G80.8 - Other cerebral palsy (3) Incontinence of urine: CODE(S): R32 - Unspecified urinary incontinence QUALIFIERS: Urinary Incontinence type: continuous leakage Qualified Code(s): N39.45 - Continuous leakage (4) Fecal incontinence: CODE(S): R15.9 - Full incontinence of feces QUALIFIERS: Fecal incontinence type: unspecified Qualified Code(s): R15.9 - Full incontinence of feces (5) Malnutrition: CODE(S): E46 - Unspecified protein-calorie malnutrition QUALIFIERS: Malnutrition type: protein-calorie malnutrition Protein-calorie malnutrition severity: moderate Qualified Code(s): E44.0 - Moderate protein-calorie malnutrition (6) Decubitus ulcer of sacral area: CODE(S): L89.159 - Pressure ulcer of sacral region, unspecified stage QUALIFIERS: Pressure injury stage: stage 4 Qualified Code(s): L89.154 - Pressure ulcer of sacral region, stage 4 PLAN: Plan Updated wound culture 03/29/25 had rare growth of enterococcus faecalis and avium, corynebacterium striatum (contaminant), pseudomonas aeruginosa, proteus mirabilis, klebsiella aerogenes, prevotella bivia, and unspecified anaerobic species. Patient's mother reports she only ever sees improvement with IV antibiotics; given multi-species growth and patient's complexity and tapping to bone with question for osteo will refer to ID for further recommendations. In the meantime, I did review with [facility] inpatient pharmacy to determine oral antibiotic regimen that would be compatible with PEG tube. Will require a regimen of Cipro, Flagyl, and Linezolid to address the various bacteria; however, with her history of reactions feel it would be best to initiate one antibiotic at a time and her mother is in agreement. Cipro was sent last week, unfortunately after 1 dose she had what appears to have been a drug-eruption rash so this was discontinued. Her mother did tile picker the Linezolid but has not started this. At this point, with ID consult next week will hold off on initiating further antibiotics and await their recommendations. Will discontinue wound vac given issues with maintaining consistent seal; will return to packing with dakins-soaked gauze changed twice daily or more often as needed if it becomes soiled. Continue [place] supplementation. Continue offloading efforts with frequent turns, at least every 2 hours. She is coming in next Wednesday to see ID Dr. Krishnamurthy so will skip appt; I am out the following week so will arrange a courtesy visit with another provider here.
== END 2025-04-29 23:59 | disposition home or self-care (01) ==
LOC: WC 14:45
PROVIDERS: PCP Family Medicine; Referring Provider Family Medicine; Visit Provider Nurse Practitioner
DX: L89.314 Pressure ulcer of right buttock, stage 4 (principal); L89.154 Pressure ulcer of sacral region, stage 4; G80.8 Other cerebral palsy; L27.0 Generalized skin eruption due to drugs and medicaments taken internally; T36.8X5A Adverse effect of other systemic antibiotics, initial encounter; R15.9 Full incontinence of feces; R32 Unspecified urinary incontinence; E44.0 Moderate protein-calorie malnutrition
CPT/HCPCS: 11042; 11043; 97606

== ENCOUNTER → 2025-05-01 | Outpatient (CLI) | payer MEDICAID, SELFPAY ==
[2025-05-01 10:19] VITALS: BP 108/73; PULSE 99; RESP 18; TEMP 36.1; O2SAT 98; BMI 18.1
== END | disposition home or self-care (01) ==
LOC: RAD 09:44
PROVIDERS: PCP Family Medicine; Referring Provider Internal Medicine Infectious Disease; Visit Provider Internal Medicine Infectious Disease
DX: M86.8X8 Other osteomyelitis, other site (principal)

== ENCOUNTER 2025-05-07 13:52 | Outpatient (CLI) | payer MEDICAID, SELFPAY ==
[2025-05-07 14:33] LABS: Hematocrit 37.6 % (37-47); Hemoglobin 11.6 g/dL (12.0-15.0); Mean Corp Hgb Conc 30.9 g/dL (32-36); Mean Corpuscular Volume 90.8 fL (81-99); Mean Platelet Vol. 9.7 fl (6.2-12.0); Platelet Count 299 K/mm3 (150-450); RBC Distribution Width CV 15.3 % (11.6-14.6); RBC Distribution Width SD 50.5 fl (35.1-43.9); Red Blood Count 4.14 M/mm3 (4.2-5.4); White Blood Count 11.9 K/mm3 (4.4-11.0)
[2025-05-07 14:52] LABS: Anion Gap 10 (5-15); BUN 12 mg/dL (4-19); BUN/Creat Ratio 48.8 RATIO (10-20); Calcium,Total 9.4 mg/dL (7.6-11.0); Carbon Dioxide 30.2 mmol/L (21.0-32.0); Chloride 101 mmol/L (98-108); Glucose 104 mg/dL (70-99); Potassium 4.0 mmol/L (3.3-5.1); Vancomycin, Trough Level < 4.0 ug/mL (5.0-15.0)
== END 2025-05-07 23:59 | disposition home or self-care (01) ==
LOC: MEDOUTP 13:53
PROVIDERS: PCP Family Medicine; Referring Provider Internal Medicine Infectious Disease; Visit Provider Internal Medicine Infectious Disease
DX: M86.9 Osteomyelitis, unspecified (principal)
CPT/HCPCS: 80048; 80202; 85027; 85652; 96523; A4216

== ENCOUNTER 2025-05-14 12:58 | Outpatient (CLI) | payer MEDICAID, SELFPAY ==
[2025-05-14 14:34] LABS: Hematocrit 39.5 % (37-47); Hemoglobin 11.9 g/dL (12.0-15.0); Mean Corp Hgb Conc 30.1 g/dL (32-36); Mean Corpuscular Volume 90.8 fL (81-99); POSITIVE COUNT YES; RBC Distribution Width CV 14.9 % (11.6-14.6); RBC Distribution Width SD 49.9 fl (35.1-43.9); Red Blood Count 4.35 M/mm3 (4.2-5.4); White Blood Count 10.4 K/mm3 (4.4-11.0)
[2025-05-14 15:10] LABS: Vancomycin, Trough Level < 4.0 ug/mL (5.0-15.0)
[2025-05-14 15:14] LABS: Anion Gap 12 (5-15); BUN 17 mg/dL (4-19); BUN/Creat Ratio 54.3 RATIO (10-20); Calcium,Total 9.7 mg/dL (7.6-11.0); Carbon Dioxide 29.1 mmol/L (21.0-32.0); Chloride 102 mmol/L (98-108); Glucose 136 mg/dL (70-99); Potassium 4.8 mmol/L (3.3-5.1)
[2025-05-14 16:39] LABS: Scan Indicated on CBC? Y/N YES- FLAGS NOTED
== END 2025-05-14 23:59 | disposition home or self-care (01) ==
LOC: MEDOUTP 12:58
PROVIDERS: PCP Family Medicine; Referring Provider Internal Medicine Infectious Disease; Visit Provider Internal Medicine Infectious Disease
DX: Z45.2 Encounter for adjustment and management of vascular access device (principal); M86.9 Osteomyelitis, unspecified
CPT/HCPCS: 36592; 36593; 80048; 80202; 85027; 85652; J2997; A4216

== ENCOUNTER 2025-05-17 15:15 | Outpatient (RCR) | payer MEDICAID, SELFPAY ==
[2025-05-03 11:38] VITALS: BP 93/52; PULSE 83; RESP 18; TEMP 36.3
--- NOTE | 2025-05-03 16:36 | PCM.WC.PN ---
History of Present Illness Date of Service: 05/03/25 Chief Complaint: R buttock pressure ulceration History of Wound: Marcia Daniel is a 34 y/o female with cerebral palsy who is nonverbal and nonmobile, she has full care from her adoptive mother, Peg, who is present at her appointment today. She saw Jaimee to establish care at the wound center last week; however, due to scheduling difficulties will be transitioning to my care. Peg tells me that she has had this ulceration to some extent for the past ~7 years. They have had wound care previously at a different clinic close to their home but recently decided to change to seek a different approach. She reports around year 2 of the wound a wound vac was tried, but it sounds like there was difficulty maintaining good seal. She reports through the years they have consulted with 4 different surgeons to consider surgical management but each time have opted to continue nonsurgical efforts. She reports that there has never been any known associated fistula; she has never seen any fecal matter or drainage in/around the wound. Patient does not have any history of diverticulitis/colocutaneous fistulas, pilonidal cysts or similar conditions. She reports no foul odor or thick/purulent drainage recently. She reports that Marcia has been on IV antibiotics for this ulceration in the past with PICC/midlines; there was consideration of a port but she was felt to be too high risk for infection with this. 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 though no recent flares in the last year. She does have a low air loss mattress and robust padding in her wheelchair but she is completely nonambulatory. She has a history of malnutrition (relies on feeding tube for nutrition), urine incontinence (she has a long-term sage catheter), fecal incontinence (averages 1 BM per day, Peg reports this is managed quickly to prevent soiling of the wound) iron deficiency anemia, and gall bladder and kidney issues per report. She is currently between PCPs but re-establishing care with an old PCP in April. At last visit here, Jaimee obtained wound cultures and started patient on Cefdinir x 2 weeks per sensitivity results. Peg states they just started these antibiotics yesterday, so far she seems to be tolerating them well. Progress of Wound: Courtesy Visit: No acute concerns reported at this time. Yet to start antibiotics however has had PICC line placed. Plan is to start it later today. Wound VAC has been discontinued due to concerns with seal. Some worsening noted by caregiver. No other acute concerns reported. Objective Data Objective Data Vital Signs: Vital Signs Temp Pulse Resp BP O2 Del Method 97.3 F L 83 18 93/52 L Room Air 05/03/25 11:38 05/03/25 11:38 05/03/25 11:38 05/03/25 11:38 05/03/25 11:38 Oxygen Delivery Method Room Air Charges/Coding Procedures Integumentary 111xxx-113xx: [id number] Linda musc/fascia 20 sq cm/< Physical Exam Const no apparent distress General Appearance: comfortable HEENT Head and Scalp: normal to inspection Resp normal respiratory effort Skin Wounds: wounds noted size Size: See clinical note, bed with slough, necrotic and with undermining, no odor and surrounding erythema Debridement Note Debridement Note Wound debrided: Right buttock (sacral/superior) Wound Grade/Stage: Stage IV Type of Debridement: Excisional debridement Anesthesia Used: 4% Lidocaine Solution Depth: Down to and including healthy tissue, in the subcutaneous layer and to muscle Percentage of wound debrided: 100 Instrument Used: 7mm curette Tissue Removed: Slough and devitalized tissue Severity: Necrosis of Muscle Amount of bleeding with debridement: Mild Bleeding Controlled with: Pressure Patient tolerated procedure: Patient tolerated procedure well Post-Debridement Measurements and Additional Note: Post-Debridement Measurements/Treatment - Nurse 1 - General Ulcer Assessment Start: 05/03/25 11:36 Freq: Status: Active Protocol: CAROL.[email or web address] Activity Type Activity Date Activity User E-sign Co-sign Detail Recorded Client Recorded Date Recorded By Document 05/03/25 11:38 [id number] 05/03/25 11:40 KW 05/03/25 11:38 - Today's Visit Information Type of service Follow-up Visit (Physician/MACHINERY RIGGER ) Arrival Mode Wheelchair Accompanied by MOTHER Patient Identification Verified (Name & Yes ) Vital Signs Temperature (97.8 F-99.1 F) 97.3 F L Temperature Source Temporal Pulse Rate (60-100) 83 Pulse Location Monitor Respiratory Rate (12-18) 18 Respiratory rate source Observation Oxygen Delivery Method Room Air Blood Pressure (90/60-120/80) 93/52 L Blood Pressure Mean (mm Hg) 65 Source Monitor Position Semi-Fowlers Blood Pressure Location Left Arm History Since Last Visit- (Skip if this is Patient's initial visit) Have you changed medications since your No last visit? Any new allergies or adverse reactions No Had a fall/change in ADL's that may No increase risk of falls Signs or symptoms of abuse and/or No neglect since last visit Have you been in the hospital since your No last visit? Has dressing in place as prescribed Yes Has compression in place as prescribed N/A Has offloadiing in place as prescribed N/A Experienced any changes in pain level or No management Left Footwear No Footwear Right Footwear No Footwear Pain Scale: 0-10 Numeric Is Patient Pain Free? Yes WC - Nurse 1 - General Ulcer Measurement Start: 05/03/25 11:36 Freq: Status: Active Protocol: Activity Type Activity Date Activity User E-sign Co-sign Detail Recorded Client Recorded Date Recorded By Document 05/03/25 11:38 KW [id number] 05/03/25 11:40 KW 05/03/25 11:38 Wound Center Nurse 1 #2- R BUTTOCK -Current Size (cm) - Length 5.5 -Current Size (cm) - Width 3 -Current Size (cm) - Depth 0.1 -Total Square Cm 16.5 -Exudate Amt Medium -Exudate Type Serosanguineous -Wound Margin Distinct, Outline Attached -Granulation Amt Large (67-100%) -Granulation Quality Red -Texture (Makenzie-wound Skin Appearance) Assessed -Moisture (Makenzie-wound Skin Appearance) Assessed -Color (Makenzie-wound Skin Appearance) Assessed -Temperature (Makenzie-wound Skin No Abnormality Appearance) (Pt Warm) -Tenderness on Palpation (Makenzie-wound No Skin Appearance) -Ulcer Cleansing Soap and Water -Foul Odor after Cleansing No -Anesthetic Used 4% Lidocaine Solution #1 SACRAL -Current Size (cm) - Length 2.7 -Current Size (cm) - Width 4 -Current Size (cm) - Depth 3 -Total Square Cm 10.8 -Date of Last Picture (Recall this 05/03/25 field) -Exudate Amt Medium -Exudate Type Serosanguineous -Wound Margin Distinct, Outline Attached -Granulation Amt Large (67-100%) -Granulation Quality Red -Texture (Makenzie-wound Skin Appearance) Assessed -Moisture (Makenzie-wound Skin Appearance) Assessed -Color (Makenzie-wound Skin Appearance) Assessed -Temperature (Makenzie-wound Skin No Abnormality Appearance) (Pt Warm) -Tenderness on Palpation (Makenzie-wound No Skin Appearance) -Ulcer Cleansing Soap and Water -Foul Odor after Cleansing No -Anesthetic Used 4% Lidocaine Solution WC - Nurse 2 - General Ulcer CM Notes Start: 05/03/25 11:36 Freq: Status: Active Protocol: Activity Type Activity Date Activity User E-sign Co-sign Detail Recorded Client Recorded Date Recorded By Document 05/03/25 11:51 [id number] 05/03/25 12:04 05/03/25 11:51 Wound Center Nurse 2 #2- R BUTTOCK -Time 12:01 -Correct Patient Yes -Correct Side, Site, Position Yes -Correct Procedure Yes -Procedure Performed Yes -Type of Procedure Debridement -Clinical Debridement Muscle / Fascia -Tissue Removed Muscle -Post Debridement (cm) - Length 4.5 -Post Debridement (cm) - Width 2.6 -Post Debridement (cm) - Depth 0.8 -Total Square (Post) (cm) 11.70 -Area of Debridement (cm) - Length 4.5 -Area of Debridement (cm) - Width 2.6 -Total Square (Area) (cm) 11.70 -Tunneling No -Undermining/Tunneling No -Circular Undermining No -Wound/Ulcer Outcome Not Healed -Ulcer Cleansing Rinsed/ Irrigated with Saline -Foul Odor after Cleansing No -Bioengineered Tissue No -Bleeding Controlled with Pressure -Treatment Response Procedure Tolerated Well -Debridement - Muscle / Fascia, 1st Yes 20sq cm #1 SACRAL -Time 12:02 -Correct Patient Yes -Correct Side, Site, Position Yes -Correct Procedure Yes -Procedure Performed Yes -Type of Procedure Debridement -Clinical Debridement Muscle / Fascia -Tissue Removed Muscle -Post Debridement (cm) - Length 2.0 -Post Debridement (cm) - Width 3.5 -Post Debridement (cm) - Depth 2.9 -Total Square (Post) (cm) 7.00 -Area of Debridement (cm) - Length 2.0 -Area of Debridement (cm) - Width 3.5 -Total Square (Area) (cm) 7.00 -Tunneling No -Undermining/Tunneling No -Circular Undermining No -Wound/Ulcer Outcome Not Healed -Ulcer Cleansing Rinsed/ Irrigated with Saline -Foul Odor after Cleansing No -Bioengineered Tissue No -Bleeding Controlled with Pressure -Treatment Response Procedure Tolerated Well -Offloading No -Debridement - Muscle / Fascia, 1st No 20sq cm Pain Scale: 0-10 Numeric Is Patient Pain Free? Yes - Nurse 3 - General Ulcer D/C NN Start: 05/03/25 11:36 Freq: Status: Active Protocol: Activity Type Activity Date Activity User E-sign Co-sign Detail Recorded Client Recorded Date Recorded By Document 05/03/25 12:23 [place] [id number] 05/03/25 12:24 [place] 05/03/25 12:23 Wound Care Center Nurse 3 #2- R BUTTOCK -Other Dressing DAKINS AND ABD Pain Scale: 0-10 Numeric Is Patient Pain Free? Yes - Visit Discharge Discharge Condition Stable Ambulatory Status Wheelchair Transportation Private Auto Medication Reconcilliation completed & No provided to patient/care provider Clinical Summary of Care Provided Yes Additional Wound Wound debrided: Right buttock (inferior) Wound Grade/Stage: Stage IV Type of Debridement: Excisional debridement Anesthesia Used: 4% Lidocaine Solution Depth: Down to and including healthy tissue, in the subcutaneous layer and to muscle Instrument Used: 7mm curette Tissue Removed: Slough and devitalized tissue Severity: Necrosis of Muscle Amount of bleeding with debridement: Mild Bleeding Controlled with: Pressure Patient tolerated procedure: Patient tolerated procedure well Assessment/Plan Assessment/Plan (1) Decubitus ulcer of right buttock, stage 4: CODE(S): L89.314 - Pressure ulcer of right buttock, 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: CODE(S): G80.8 - Other cerebral palsy (3) Incontinence of urine: CODE(S): R32 - Unspecified urinary incontinence QUALIFIERS: Urinary Incontinence type: continuous leakage Qualified Code(s): N39.45 - Continuous leakage (4) Fecal incontinence: CODE(S): R15.9 - Full incontinence of feces QUALIFIERS: Fecal incontinence type: unspecified Qualified Code(s): R15.9 - Full incontinence of feces (5) Malnutrition: CODE(S): E46 - Unspecified protein-calorie malnutrition QUALIFIERS: Malnutrition type: protein-calorie malnutrition Protein-calorie malnutrition severity: moderate Qualified Code(s): E44.0 - Moderate protein-calorie malnutrition (6) Decubitus ulcer of sacral area: CODE(S): L89.159 - Pressure ulcer of sacral region, unspecified stage QUALIFIERS: Pressure injury stage: stage 4 Qualified Code(s): L89.154 - Pressure ulcer of sacral region, stage 4 PLAN: Plan Debridement done as documented above, procedure was well-tolerated. As above, caregiver/mother states that there has been some worsening but plans to start antibiotics today. Now has a PICC line. VAC has been discontinued due to concerns with seal. Continue Dakin's wet-to-dry daily. Change when soiled. Reposition often. Optimize protein intake and other chronic wound care measures. Her questions were answered, she was advised to let us know if she had any further questions or concerns. Follow-up next week with routine wound care provider. This note was generated with [employer] dictation software. It may contain incorrect words, spelling, and punctuation that were not noted in checking the note before signing.
[2025-05-10 14:00] VITALS: BP 104/67; PULSE 104; RESP 18; TEMP 36.3
--- NOTE | 2025-05-10 16:04 | PCM.WC.PN ---
History of Present Illness Date of Service: 05/10/25 Chief Complaint: R buttock pressure ulceration History of Wound: Marcia Daniel is a 34 y/o female with cerebral palsy who is nonverbal and nonmobile, she has full care from her adoptive mother, Peg, who is present at her appointment today. She saw Jaimee to establish care at the wound center last week; however, due to scheduling difficulties will be transitioning to my care. Peg tells me that she has had this ulceration to some extent for the past ~7 years. They have had wound care previously at a different clinic close to their home but recently decided to change to seek a different approach. She reports around year 2 of the wound a wound vac was tried, but it sounds like there was difficulty maintaining good seal. She reports through the years they have consulted with 4 different surgeons to consider surgical management but each time have opted to continue nonsurgical efforts. She reports that there has never been any known associated fistula; she has never seen any fecal matter or drainage in/around the wound. Patient does not have any history of diverticulitis/colocutaneous fistulas, pilonidal cysts or similar conditions. She reports no foul odor or thick/purulent drainage recently. She reports that Marcia has been on IV antibiotics for this ulceration in the past with PICC/midlines; there was consideration of a port but she was felt to be too high risk for infection with this. 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 though no recent flares in the last year. She does have a low air loss mattress and robust padding in her wheelchair but she is completely nonambulatory. She has a history of malnutrition (relies on feeding tube for nutrition), urine incontinence (she has a long-term sage catheter), fecal incontinence (averages 1 BM per day, Peg reports this is managed quickly to prevent soiling of the wound) iron deficiency anemia, and gall bladder and kidney issues per report. She is currently between PCPs but re-establishing care with an old PCP in April. At last visit here, Jaimee obtained wound cultures and started patient on Cefdinir x 2 weeks per sensitivity results. Peg states they just started these antibiotics yesterday, so far she seems to be tolerating them well. Subjective Subjective Since I last saw her, she saw ID Dr. Krishnamurthy and had PICC line placed. She has been prescribed vanco and zosyn and has completed almost 1 week of this regimen. Her mother reports she has already noticed an improvement in the appearance of the wound and in Marcia's overall disposition. No new concerns. Objective Data Objective Data Vital Signs: Vital Signs Temp Pulse Resp BP O2 Del Method 97.3 F L 104 H 18 104/67 Room Air 05/10/25 14:00 05/10/25 14:00 05/10/25 14:00 05/10/25 14:00 05/10/25 14:00 Oxygen Delivery Method Room Air Charges/Coding Procedures Integumentary [id number]: [id number] Linda musc/fascia 20 sq cm/< Physical Exam Const alert Constitutional Narrative: Nonverbal Resp normal respiratory effort Resp Narrative: O2 supplementation via NC Skin Wound Narrative: R buttock pressure ulceration cluster; Distal ulcer in the cluster near coccyx with depth, taps to bone which is hard and viable in appearance; with probing no apparent tracking; do not appreciate any purulent or feculent drainage; no surrounding excess warmth, fluctuance, induration; wound base appears granular and pink. Proximal cluster is more superficial into the subcutaneous tissue with pink/red base without significant drainage/excess warmth/fluctuance/induration. 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 Debridement Note Debridement Note Wound debrided: Decubitus ulcer right sacral Laterality: Right Wound Grade/Stage: Stage IV Type of Debridement: Excisional debridement Anesthesia Used: 5% Lidocaine Gel Depth: to muscle Percentage of wound debrided: 100 Instrument Used: 5mm curette Tissue Removed: Fibrin slough, devitalized tissue Severity: Fat Layer Exposed Amount of bleeding with debridement: Mild Bleeding Controlled with: Compression and gauze Patient tolerated procedure: Patient tolerated procedure well Post-Debridement Measurements and Additional Note: Post-Debridement Measurements/Treatment CAROL - Nurse 1 - General Ulcer Assessment Start: 05/03/25 11:36 Freq: Status: Active Protocol: ROYER Activity Type Activity Date Activity User E-sign Co-sign Detail Recorded Client Recorded Date Recorded By Document 05/03/25 11:38 KW [id number] 05/03/25 11:40 KW Document 05/10/25 14:00 KW [id number] 05/10/25 14:24 KW 05/03/25 05/10/25 11:38 14:00 - Today's Visit Information Type of service Follow-up Visit Follow-up Visit (Physician/CHEMICAL ENGINEERING INTERN (Physician/CHEMICAL ENGINEERING INTERN ) ) Arrival Mode Wheelchair Wheelchair Transfer Assistance Slade Lift Accompanied by MOTHER mother Patient Identification Verified (Name & Yes Yes ) Vital Signs Temperature (97.8 F-99.1 F) 97.3 F L 97.3 F L Temperature Source Temporal Temporal Pulse Rate (60-100) 83 104 H Pulse Location Monitor Monitor Respiratory Rate (12-18) 18 18 Respiratory rate source Observation Observation Oxygen Delivery Method Room Air Room Air Blood Pressure (90/60-120/80) 93/52 L 104/67 Blood Pressure Mean (mm Hg) 65 79 Source Monitor Monitor Position Semi-Fowlers Sitting Blood Pressure Location Left Arm Right Arm History Since Last Visit- (Skip if this is Patient's initial visit) Have you changed medications since your No No last visit? Any new allergies or adverse reactions No No Had a fall/change in ADL's that may No No increase risk of falls Signs or symptoms of abuse and/or No No neglect since last visit Have you been in the hospital since your No No last visit? Has dressing in place as prescribed Yes Yes Has compression in place as prescribed N/A N/A Has offloadiing in place as prescribed N/A N/A Experienced any changes in pain level or No No management Left Footwear No Footwear No Footwear Right Footwear No Footwear No Footwear Pain Scale: 0-10 Numeric Is Patient Pain Free? Yes Yes - Nurse 1 - General Ulcer Measurement Start: 05/03/25 11:36 Freq: Status: Active Protocol: Activity Type Activity Date Activity User E-sign Co-sign Detail Recorded Client Recorded Date Recorded By Document 05/03/25 11:38 KW [id number] 05/03/25 11:40 KW Document 05/10/25 14:00 KW [id number] 05/10/25 14:24 KW 05/03/25 05/10/25 11:38 14:00 Wound Center Nurse 1 #2- R BUTTOCK -Current Size (cm) - Length 5.5 2.9 -Current Size (cm) - Width 3 2.0 -Current Size (cm) - Depth 0.1 0.1 -Total Square Cm 16.5 5.80 -Photo Taken No -Tunneling No -Undermining/Tunneling No -Circular Undermining No -Exudate Amt Medium -Exudate Type Serosanguineous -Wound Margin Distinct, Distinct, Outline Outline Attached Attached -Granulation Amt Large (67-100%) Medium (34-66%) -Granulation Quality Red Shaniko -Necrosis Amt Medium (34-66%) -Necrotic Tissue Type Adherent Slough -Texture (Makenzie-wound Skin Appearance) Assessed Assessed -Moisture (Makenzie-wound Skin Appearance) Assessed Assessed -Color (Makenzie-wound Skin Appearance) Assessed Assessed -Temperature (Makenzie-wound Skin No Abnormality No Abnormality Appearance) (Pt Warm) (Pt Warm) -Tenderness on Palpation (Makenzie-wound No No Skin Appearance) -Ulcer Cleansing Soap and Water Soap and Water -Foul Odor after Cleansing No No -Anesthetic Used 4% Lidocaine 5% Lidocaine Solution Gel #1 SACRAL -Current Size (cm) - Length 2.7 3.3 -Current Size (cm) - Width 4 1.9 -Current Size (cm) - Depth 3 2.0 -Total Square Cm 10.8 6.27 -Date of Last Picture (Recall this 05/03/25 field) -Photo Taken No -Tunneling No -Undermining/Tunneling No -Circular Undermining No -Exudate Amt Medium -Exudate Type Serosanguineous -Wound Margin Distinct, Outline Attached -Granulation Amt Large (67-100%) Medium (34-66%) -Granulation Quality Red Shaniko -Necrosis Amt Medium (34-66%) -Necrotic Tissue Type Adherent Slough -Texture (Makenzie-wound Skin Appearance) Assessed Assessed -Moisture (Makenzie-wound Skin Appearance) Assessed Assessed -Color (Makenzie-wound Skin Appearance) Assessed Assessed -Temperature (Makenzie-wound Skin No Abnormality No Abnormality Appearance) (Pt Warm) (Pt Warm) -Tenderness on Palpation (Makenzie-wound No No Skin Appearance) -Ulcer Cleansing Soap and Water Soap and Water -Foul Odor after Cleansing No No -Anesthetic Used 4% Lidocaine 5% Lidocaine Solution Gel WC - Nurse 2 - General Ulcer CM Notes Start: 05/03/25 11:36 Freq: Status: Active Protocol: Activity Type Activity Date Activity User E-sign Co-sign Detail Recorded Client Recorded Date Recorded By Document 05/03/25 11:51 GM [id number] 05/03/25 12:04 GM Document 05/10/25 14:48 GM [id number] 05/10/25 14:59 05/03/25 05/10/25 11:51 14:48 Wound Center Nurse 2 #2- R BUTTOCK -Time 12:01 14:48 -Correct Patient Yes Yes -Correct Side, Site, Position Yes Yes -Correct Procedure Yes Yes -Procedure Performed Yes Yes -Type of Procedure Debridement Debridement -Clinical Debridement Muscle / Fascia Muscle / Fascia -Tissue Removed Muscle Muscle -Post Debridement (cm) - Length 4.5 3.0 -Post Debridement (cm) - Width 2.6 2.3 -Post Debridement (cm) - Depth 0.8 0.8 -Total Square (Post) (cm) 11.70 6.90 -Area of Debridement (cm) - Length 4.5 3.0 -Area of Debridement (cm) - Width 2.6 2.3 -Total Square (Area) (cm) 11.70 6.90 -Tunneling No No -Undermining/Tunneling No No -Circular Undermining No No -Wound/Ulcer Outcome Not Healed Not Healed -Ulcer Cleansing Rinsed/ Rinsed/ Irrigated with Irrigated with Saline Saline -Foul Odor after Cleansing No No -Bioengineered Tissue No No -Bleeding Controlled with Pressure Pressure -Treatment Response Procedure Procedure Tolerated Well Tolerated Well -Offloading No -Debridement - Muscle / Fascia, 1st Yes Yes 20sq cm #1 SACRAL -Time 12:02 14:58 -Correct Patient Yes Yes -Correct Side, Site, Position Yes Yes -Correct Procedure Yes Yes -Procedure Performed Yes Yes -Type of Procedure Debridement Debridement -Clinical Debridement Muscle / Fascia Muscle / Fascia -Tissue Removed Muscle Muscle -Post Debridement (cm) - Length 2.0 3.0 -Post Debridement (cm) - Width 3.5 1.5 -Post Debridement (cm) - Depth 2.9 3.0 -Total Square (Post) (cm) 7.00 4.50 -Area of Debridement (cm) - Length 2.0 3.0 -Area of Debridement (cm) - Width 3.5 1.5 -Total Square (Area) (cm) 7.00 4.50 -Tunneling No No -Undermining/Tunneling No No -Circular Undermining No No -Wound/Ulcer Outcome Not Healed Not Healed -Ulcer Cleansing Rinsed/ Rinsed/ Irrigated with Irrigated with Saline Saline -Foul Odor after Cleansing No No -Bioengineered Tissue No No -Bleeding Controlled with Pressure Pressure -Treatment Response Procedure Procedure Tolerated Well Tolerated Well -Offloading No No -Debridement - Muscle / Fascia, 1st No Yes 20sq cm Pain Scale: 0-10 Numeric Is Patient Pain Free? Yes Yes - Nurse 3 - General Ulcer D/C NN Start: 05/03/25 11:36 Freq: Status: Active Protocol: Activity Type Activity Date Activity User E-sign Co-sign Detail Recorded Client Recorded Date Recorded By Document 05/03/25 12:23 MD [id number] 05/03/25 12:24 MD Document 05/10/25 15:14 [id number] 05/10/25 15:15 05/03/25 05/10/25 12:23 15:14 Wound Care Center Nurse 3 #2- R BUTTOCK -Other Dressing DAKINS AND ABD dakins soaked gauze -Primary Dressing Covered/Secured with Dry Gauze, Secured with Tape #1 SACRAL -Primary Dressing Applied Hysept -Primary Dressing Covered/Secured with Dry Gauze, Secured with Tape -Hysept 1 Pain Scale: 0-10 Numeric Is Patient Pain Free? Yes Yes - Visit Discharge Discharge Condition Stable Stable Ambulatory Status Wheelchair Wheelchair Transportation Private Auto Private Auto Medication Reconcilliation completed & No No provided to patient/care provider Clinical Summary of Care Provided Yes Yes Additional Wound Wound debrided: Decubitus ulcer R gluteal Laterality: Right Type of Debridement: Excisional debridement Anesthesia Used: 4% Lidocaine Solution Depth: Down to and including healthy tissue and in the subcutaneous layer Percentage of wound debrided: 100 Instrument Used: 5mm curette Tissue Removed: slough, devitalized tissue Severity: Fat Layer Exposed Amount of bleeding with debridement: Mild Bleeding Controlled with: Pressure Assessment/Plan Assessment/Plan (1) Decubitus ulcer of right buttock, stage 4: CODE(S): L89.314 - Pressure ulcer of right buttock, 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: CODE(S): G80.8 - Other cerebral palsy (3) Incontinence of urine: CODE(S): R32 - Unspecified urinary incontinence QUALIFIERS: Urinary Incontinence type: continuous leakage Qualified Code(s): N39.45 - Continuous leakage (4) Fecal incontinence: CODE(S): R15.9 - Full incontinence of feces QUALIFIERS: Fecal incontinence type: unspecified Qualified Code(s): R15.9 - Full incontinence of feces (5) Malnutrition: CODE(S): E46 - Unspecified protein-calorie malnutrition QUALIFIERS: Malnutrition type: protein-calorie malnutrition Protein-calorie malnutrition severity: moderate Qualified Code(s): E44.0 - Moderate protein-calorie malnutrition (6) Decubitus ulcer of sacral area: CODE(S): L89.159 - Pressure ulcer of sacral region, unspecified stage QUALIFIERS: Pressure injury stage: stage 4 Qualified Code(s): L89.154 - Pressure ulcer of sacral region, stage 4 PLAN: Plan She now has PICC Line in place and is receiving vanco/zosyn regimen as per ID Dr. Krishnamurthy. Wounds do have improved appearance this week. For wound care, will continue to pack wounds with dakins-soaked gauze followed by ABD pads secured with silicone tape; change at least twice daily or more often as needed to keep clean. Continue Blayne supplementation. Continue offloading efforts with frequent turns, at least every 2 hours. Plan for return to the office in 1 week, sooner as needed.
[2025-05-17 15:08] VITALS: BP 102/68; PULSE 108; RESP 16; TEMP 36.4
--- NOTE | 2025-05-17 16:28 | PCM.WC.PN ---
History of Present Illness Date of Service: 05/17/25 Chief Complaint: R buttock pressure ulceration History of Wound: Marcia Daniel is a 34 y/o female with cerebral palsy who is nonverbal and nonmobile, she has full care from her adoptive mother, Peg, who is present at her appointment today. She saw Jaimee to establish care at the wound center last week; however, due to scheduling difficulties will be transitioning to my care. Peg tells me that she has had this ulceration to some extent for the past ~7 years. They have had wound care previously at a different clinic close to their home but recently decided to change to seek a different approach. She reports around year 2 of the wound a wound vac was tried, but it sounds like there was difficulty maintaining good seal. She reports through the years they have consulted with 4 different surgeons to consider surgical management but each time have opted to continue nonsurgical efforts. She reports that there has never been any known associated fistula; she has never seen any fecal matter or drainage in/around the wound. Patient does not have any history of diverticulitis/colocutaneous fistulas, pilonidal cysts or similar conditions. She reports no foul odor or thick/purulent drainage recently. She reports that Marcia has been on IV antibiotics for this ulceration in the past with PICC/midlines; there was consideration of a port but she was felt to be too high risk for infection with this. 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 though no recent flares in the last year. She does have a low air loss mattress and robust padding in her wheelchair but she is completely nonambulatory. She has a history of malnutrition (relies on feeding tube for nutrition), urine incontinence (she has a long-term sage catheter), fecal incontinence (averages 1 BM per day, Peg reports this is managed quickly to prevent soiling of the wound) iron deficiency anemia, and gall bladder and kidney issues per report. She is currently between PCPs but re-establishing care with an old PCP in April. At last visit here, Jaimee obtained wound cultures and started patient on Cefdinir x 2 weeks per sensitivity results. Peg states they just started these antibiotics yesterday, so far she seems to be tolerating them well. Subjective Subjective Overall, everything seems stable. There was a short gap in antibiotics due to difficulties receiving supplies. Otherwise, no significant changes noted by patient's mother. Objective Data Objective Data Vital Signs: Vital Signs Temp Pulse Resp BP O2 Del Method 97.6 F L 108 H 16 102/68 Room Air 05/17/25 15:08 05/17/25 15:08 05/17/25 15:08 05/17/25 15:08 05/17/25 15:08 Oxygen Delivery Method Room Air Charges/Coding Visit Charges Office Visits / Consults: 22670 OV L3 Est 20min Physical Exam Const alert Constitutional Narrative: Nonverbal Resp normal respiratory effort Resp Narrative: O2 supplementation via NC Skin Wound Narrative: R buttock pressure ulceration cluster; Distal ulcer in the cluster near coccyx with depth, taps to bone which is hard and viable in appearance; with probing no apparent tracking; do not appreciate any purulent or feculent drainage; no surrounding excess warmth, fluctuance, induration; wound base appears granular and pink. Proximal cluster is more superficial into the subcutaneous tissue with pink/red base without significant drainage/excess warmth/fluctuance/induration. 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 Debridement Note Debridement Note No debridement was completed: No debridement was completed today Post-Debridement Measurements and Additional Note: Post-Debridement Measurements/Treatment - Nurse 1 - General Ulcer Assessment Start: 05/03/25 11:36 Freq: Status: Active Protocol: ROYER Activity Type Activity Date Activity User E-sign Co-sign Detail Recorded Client Recorded Date Recorded By Document 05/03/25 11:38 [id number] 05/03/25 11:40 KW Document 05/10/25 14:00 [id number] 05/10/25 14:24 KW Document 05/17/25 15:08 [facility] [id number] 05/17/25 15:21 [facility] 05/03/25 05/10/25 05/17/25 11:38 14:00 15:08 - Today's Visit Information Type of service Follow-up Visit Follow-up Visit Follow-up Visit (Physician/PR SPECIALIST (Physician/PR SPECIALIST (Physician/PR SPECIALIST ) ) ) Arrival Mode Wheelchair Wheelchair Wheelchair Transfer Assistance Slade Lift Slade Lift Accompanied by MOTHER mother mom Patient Identification Verified (Name & Yes Yes Yes ) Vital Signs Temperature (97.8 F-99.1 F) 97.3 F L 97.3 F L 97.6 F L Temperature Source Temporal Temporal Temporal Pulse Rate (60-100) 83 104 H 108 H Pulse Location Monitor Monitor Monitor Respiratory Rate (12-18) 18 18 16 Respiratory rate source Observation Observation Observation Oxygen Delivery Method Room Air Room Air Room Air Blood Pressure (90/60-120/80) 93/52 L 104/67 102/68 Blood Pressure Mean (mm Hg) 65 79 79 Source Monitor Monitor Monitor Position Semi-Fowlers Sitting Supine Blood Pressure Location Left Arm Right Arm Right Arm History Since Last Visit- (Skip if this is Patient's initial visit) Have you changed medications since your No No No last visit? Any new allergies or adverse reactions No No No Had a fall/change in ADL's that may No No No increase risk of falls Signs or symptoms of abuse and/or No No No neglect since last visit Have you been in the hospital since your No No No last visit? Has dressing in place as prescribed Yes Yes Yes Has compression in place as prescribed N/A N/A N/A Has offloadiing in place as prescribed N/A N/A N/A Experienced any changes in pain level or No No No management Left Footwear No Footwear No Footwear Slipper Right Footwear No Footwear No Footwear Slipper Pain Scale: 0-10 Numeric Is Patient Pain Free? Yes Yes Yes - Nurse 1 - General Ulcer Measurement Start: 05/03/25 11:36 Freq: Status: Active Protocol: Activity Type Activity Date Activity User E-sign Co-sign Detail Recorded Client Recorded Date Recorded By Document 05/03/25 11:38 [id number] 05/03/25 11:40 Document 05/10/25 14:00 [id number] 05/10/25 14:24 KW Document 05/17/25 15:08 [facility] [id number] 05/17/25 15:21 [facility] 05/03/25 05/10/25 05/17/25 11:38 14:00 15:08 Wound Center Nurse 1 #2- R BUTTOCK -Combined with other wound No -Current Size (cm) - Length 5.5 2.9 3.2 -Current Size (cm) - Width 3 2.0 4.4 -Current Size (cm) - Depth 0.1 0.1 1 -Total Square Cm 16.5 5.80 14.08 -Date of Last Picture (Recall this 05/17/25 field) -Photo Taken No Yes -Epithelialization Small 1-33% -Tunneling No No -Undermining/Tunneling No No -Circular Undermining No No -Exudate Amt Medium Large -Exudate Type Serosanguineous Serosanguineous -Wound Margin Distinct, Distinct, Distinct, Outline Outline Outline Attached Attached Attached -Granulation Amt Large (67-100%) Medium (34-66%) Large (67-100%) -Granulation Quality Red [place] Red -Slough/Fibrin Yes -Necrosis Amt Medium (34-66%) Small (1-33%) -Necrotic Tissue Type Adherent Slough Adherent Slough -Texture (Makenzie-wound Skin Appearance) Assessed Assessed Assessed -Moisture (Makenzie-wound Skin Appearance) Assessed Assessed Assessed -Color (Makenzie-wound Skin Appearance) Assessed Assessed Assessed -Temperature (Makenzie-wound Skin No Abnormality No Abnormality No Abnormality Appearance) (Pt Warm) (Pt Warm) (Pt Warm) -Tenderness on Palpation (Makenzie-wound No No No Skin Appearance) -Ulcer Cleansing Soap and Water Soap and Water Soap and Water -Foul Odor after Cleansing No No No -Anesthetic Used 4% Lidocaine 5% Lidocaine 5% Lidocaine Solution Gel Gel #1 SACRAL -Combined with other wound No -Current Size (cm) - Length 2.7 3.3 3.1 -Current Size (cm) - Width 4 1.9 2.9 -Current Size (cm) - Depth 3 2.0 2.4 -Total Square Cm 10.8 6.27 8.99 -Date of Last Picture (Recall this 05/03/25 05/17/25 field) -Photo Taken No Yes -Tunneling No No -Undermining/Tunneling No No -Circular Undermining No No -Exudate Amt Medium Large -Exudate Type Serosanguineous Serosanguineous -Wound Margin Distinct, Distinct, Outline Outline Attached Attached -Granulation Amt Large (67-100%) Medium (34-66%) Large (67-100%) -Granulation Quality Red [place] Red -Necrosis Amt Medium (34-66%) Small (1-33%) -Necrotic Tissue Type Adherent Slough Adherent Slough -Structure Exposed Fascia,Muscle -Texture (Makenzie-wound Skin Appearance) Assessed Assessed Assessed -Moisture (Makenzie-wound Skin Appearance) Assessed Assessed Assessed -Color (Makenzie-wound Skin Appearance) Assessed Assessed Assessed -Temperature (Makenzie-wound Skin No Abnormality No Abnormality No Abnormality Appearance) (Pt Warm) (Pt Warm) (Pt Warm) -Tenderness on Palpation (Makenzie-wound No No No Skin Appearance) -Ulcer Cleansing Soap and Water Soap and Water Soap and Water -Foul Odor after Cleansing No No No -Anesthetic Used 4% Lidocaine 5% Lidocaine 5% Lidocaine Solution Gel Gel WC - Nurse 2 - General Ulcer Notes Start: 05/03/25 11:36 Freq: Status: Active Protocol: Activity Type Activity Date Activity User E-sign Co-sign Detail Recorded Client Recorded Date Recorded By Document 05/03/25 11:51 GM [id number] 05/03/25 12:04 GM Document 05/10/25 14:48 GM [id number] 05/10/25 14:59 GM Edit Result 05/10/25 14:48 GM (1) [id number] 05/16/25 12:14 GM Document 05/17/25 15:39 GM [id number] 05/17/25 15:48 GM (1) #1 SACRAL - Debridement - Muscle / Fascia, 1st Yes => No 20sq cm 05/03/25 05/10/25 05/17/25 11:51 14:48 15:39 Wound Center Nurse 2 #2- R BUTTOCK -Time 12:01 14:48 15:39 -Correct Patient Yes Yes Yes -Correct Side, Site, Position Yes Yes Yes -Correct Procedure Yes Yes No -Procedure Performed Yes Yes No -Type of Procedure Debridement Debridement -Clinical Debridement Muscle / Fascia Muscle / Fascia -Tissue Removed Muscle Muscle -Post Debridement (cm) - Length 4.5 3.0 3.0 -Post Debridement (cm) - Width 2.6 2.3 2.3 -Post Debridement (cm) - Depth 0.8 0.8 1.0 -Total Square (Post) (cm) 11.70 6.90 6.90 -Area of Debridement (cm) - Length 4.5 3.0 -Area of Debridement (cm) - Width 2.6 2.3 -Total Square (Area) (cm) 11.70 6.90 -Tunneling No No No -Undermining/Tunneling No No No -Circular Undermining No No No -Wound/Ulcer Outcome Not Healed Not Healed Not Healed -Ulcer Cleansing Rinsed/ Rinsed/ Rinsed/ Irrigated with Irrigated with Irrigated with Saline Saline Saline -Foul Odor after Cleansing No No No -Bioengineered Tissue No No -Bleeding Controlled with Pressure Pressure NA -Treatment Response Procedure Procedure Tolerated Well Tolerated Well -Offloading No -Assistive Device(s) Wheelchair -Pressure Reduction Wheelchair cushion -Debridement - Muscle / Fascia, 1st Yes Yes 20sq cm #1 SACRAL -Time 12:02 14:58 15:40 -Correct Patient Yes Yes Yes -Correct Side, Site, Position Yes Yes Yes -Correct Procedure Yes Yes No -Procedure Performed Yes Yes No -Type of Procedure Debridement Debridement -Clinical Debridement Muscle / Fascia Muscle / Fascia -Tissue Removed Muscle Muscle -Post Debridement (cm) - Length 2.0 3.0 3.0 -Post Debridement (cm) - Width 3.5 1.5 1.5 -Post Debridement (cm) - Depth 2.9 3.0 3.4 -Total Square (Post) (cm) 7.00 4.50 4.50 -Area of Debridement (cm) - Length 2.0 3.0 -Area of Debridement (cm) - Width 3.5 1.5 -Total Square (Area) (cm) 7.00 4.50 -Tunneling No No No -Undermining/Tunneling No No No -Circular Undermining No No No -Wound/Ulcer Outcome Not Healed Not Healed Not Healed -Ulcer Cleansing Rinsed/ Rinsed/ Rinsed/ Irrigated with Irrigated with Irrigated with Saline Saline Saline -Foul Odor after Cleansing No No No -Bioengineered Tissue No No No -Bleeding Controlled with Pressure Pressure NA -Treatment Response Procedure Procedure Tolerated Well Tolerated Well -Offloading No No -Debridement - Muscle / Fascia, 1st No No 20sq cm Pain Scale: 0-10 Numeric Is Patient Pain Free? Yes Yes Yes WC - Nurse 3 - General Ulcer D/C NN Start: 05/03/25 11:36 Freq: Status: Active Protocol: Activity Type Activity Date Activity User E-sign Co-sign Detail Recorded Client Recorded Date Recorded By Document 05/03/25 12:23 MT [id number] 05/03/25 12:24 IA Document 05/10/25 15:14 KW [id number] 05/10/25 15:15 KW Document 05/17/25 15:54 [id number] 09/18/25 15:56 KW 05/03/25 05/10/25 05/17/25 12:23 15:14 15:54 Wound Care Center Nurse 3 cath site -Primary Dressing Applied Aquacel AG 4x4 -Primary Dressing Covered/Secured with Dry Gauze -Aquacel AG 4x4 1 #2- R BUTTOCK -Other Dressing DAKINS AND ABD dakins soaked dakins gauze gauze -Primary Dressing Covered/Secured with Dry Gauze, Dry Gauze Secured with Tape #1 SACRAL -Primary Dressing Applied Hysept -Other Dressing dakins -Primary Dressing Covered/Secured with Dry Gauze, Dry Gauze, Secured with Secured with Tape Tape -Hysept 1 Pain Scale: 0-10 Numeric Is Patient Pain Free? Yes Yes Yes WC - Visit Discharge Discharge Condition Stable Stable Stable Ambulatory Status Wheelchair Wheelchair Wheelchair Transportation Private Auto Private Auto Private Auto Medication Reconcilliation completed & No No No provided to patient/care provider Clinical Summary of Care Provided Yes Yes Yes Assessment/Plan Assessment/Plan (1) Decubitus ulcer of right buttock, stage 4: CODE(S): L89.314 - Pressure ulcer of right buttock, 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: CODE(S): G80.8 - Other cerebral palsy (3) Incontinence of urine: CODE(S): R32 - Unspecified urinary incontinence QUALIFIERS: Urinary Incontinence type: continuous leakage Qualified Code(s): N39.45 - Continuous leakage (4) Fecal incontinence: CODE(S): R15.9 - Full incontinence of feces QUALIFIERS: Fecal incontinence type: unspecified Qualified Code(s): R15.9 - Full incontinence of feces (5) Malnutrition: CODE(S): E46 - Unspecified protein-calorie malnutrition QUALIFIERS: Malnutrition type: protein-calorie malnutrition Protein-calorie malnutrition severity: moderate Qualified Code(s): E44.0 - Moderate protein-calorie malnutrition (6) Decubitus ulcer of sacral area: CODE(S): L89.159 - Pressure ulcer of sacral region, unspecified stage QUALIFIERS: Pressure injury stage: stage 4 Qualified Code(s): L89.154 - Pressure ulcer of sacral region, stage 4 PLAN: Plan She now has PICC Line in place and is receiving vanco/zosyn regimen as per ID Dr. Krishnamurthy. Wounds appear stable this week, no significant slough/nonviable tissue so no debridement performed. For wound care, will continue to pack wounds with dakins-soaked gauze followed by ABD pads secured with silicone tape; change at least twice daily or more often as needed to keep clean. Continue Blayne supplementation. Continue offloading efforts with frequent turns, at least every 2 hours. Plan for return to the office in 2 weeks, sooner as needed.
--- NOTE | 2025-05-18 10:09 | WC ---
PHOTO-RIGHT BUTTOCK/SACRAL 05/17/25
== END 2025-05-29 23:59 | disposition home or self-care (01) ==
LOC: WC 15:15
PROVIDERS: PCP Family Medicine; Referring Provider Family Medicine; Visit Provider Nurse Practitioner
DX: L89.154 Pressure ulcer of sacral region, stage 4 (principal); L89.314 Pressure ulcer of right buttock, stage 4; G80.0 Spastic quadriplegic cerebral palsy; Z93.1 Gastrostomy status; R15.9 Full incontinence of feces; E44.0 Moderate protein-calorie malnutrition; N39.45 Continuous leakage
CPT/HCPCS: G0463; 11043; 36569; 99213

== ENCOUNTER 2025-05-20 14:50 | Inpatient (IN) | payer MEDICAID, SELFPAY ==
[2025-05-20] VITALS (11 sets, daily range): BP systolic 102–179; BP diastolic 69–94; PULSE 81–112; RESP 16–22; TEMP 36.5–37.1; O2SAT 98–100; BMI 22.4; BMI 21.4
--- NOTE | 2025-05-20 15:25 | EDS_ITS ---
HPI History of Present Illness Chief Complaint: Complaint Informant: family Narrative Narrative: Patient is a 35-year-old female with history of quadriplegic infantile cerebral palsy, James tube, sacral wounds and chronic indwelling Myles catheter presenting with decreased urine output. Patient is currently on IV antibiotics at home via PICC line (Banken Zosyn for her wounds). She follows with wound care here. Mother states that patient has had decreased urine output yesterday and no output in urine output today. She tried flushing it 3 times with no urine output obtained. She has been tolerating her tube feeds (receives continuous tube feeds with hourly flushes). No report of any fevers. Did have respiratory virus within the house recently and patient's had some increased nasal congestion and secretions for the past 2 days or so. No increase in O2 demands. No other complaints or concerns reported at this time [facility] Medical History GERD (gastroesophageal reflux disease) Allergic rhinitis Seizure disorder Chronic indwelling Myles catheter Decubitus ulcer of sacral area Decubitus ulcer of right buttock, stage 4 Malnutrition Anemia Celiac disease Quadriplegic infantile cerebral palsy Home Medications ?Medication ?Instructions ?Recorded ?Last Taken ?Type acetaminophen 325 mg tablet (Aphen) 325 mg PO Q6H PRN fever or pain 03/14/25 Unknown History albuterol (refill) 90 90 mcg inhalation PRN Unknown History mcg/actuation aerosol inhaler baclofen 50 mcg/mL intrathecal 50 mcg intrathecal Q24H 03/14/25 Unknown History solution diazepam (Valtoco) 15 mg intranasal Q4H PRN sei zure 03/14/25 Unknown History activity diazepam 2 mg tablet 2 mg PO DAILY 03/14/25 Unkno wn History fluconazole 100 mg tablet 100 mg PO Q72H 03/14/25 Unkn own History (Diflucan) fluticasone propionate 50 2 spray intranasal DAILY PRN nasal 03/14/25 Unknown History mcg/actuation nasal congestion spray,suspension (Aller-Kenny) ibuprofen 200 mg tablet (IBU-200) 200 mg PO Q8H PRN fe marbella or pain 03/14/25 Unknown History levetiracetam 100 mg/mL oral 1,500 mg PO Q12H 03/14/25 Unknown History solution loratadine 10 mg tablet 10 mg PO DAILY 03/14/25 Unkn own History medroxyprogesterone 150 mg/mL 150 mg IM QMONTH 5 Unknown History intramuscular suspension (Depo-Provera) omeprazole 40 mg capsule,delayed 40 mg PO DAILY Unknown History release polyethylene glycol 3350 17 17 g PO DAILY PRN constipa tion 03/14/25 Unknown History gram/dose oral powder (ClearLax) promethazine 12.5 mg rectal 12.5 mg FL Q6H PRN nausea 03/14/25 Unknown History suppository singular 10 mg G-tube DAILY 03/14/25 Unknown History tramadol 50 mg tablet 50 mg PO DAILY PRN pain 02/27 02/21 Unknown History lamotrigine 150 mg tablet 150 mg PO BID 05/20/25 Unkno wn History Allergy/AdvReac Type Severity Reaction Status Date / Time cefdinir Allergy Intermediate Fever and Verified 05/20/25 14:53 skin rash ciprofloxacin (From Cipro) Allergy Intermediate Rash Verified 05/20/25 14:53 Penicillins (PCN) AdvReac Blisters Verified 05/20/25 14:53 Surgical History S/P gastrostomy History of back surgery Status post insertion of intrathecal baclofen pump History of tonsillectomy and adenoidectomy S/P cholecystectomy Social History household members: family Smoking Status: Never smoker alcohol intake: never substance use type: does not use ROS ROS ED Review of Systems ROS Unobtainable: due to mental status Constitutional Constitutional ED: Denies chills or fever(s) Gastrointestinal Gastrointestinal: Denies diarrhea or vomiting Genitourinary Genitourinary ED: Reports other Details: Decreased urine production Integumentary Reports other Details: Sacral decubitus wound EXAM Physical Exam Const Vital Signs: 05/20/25 14:53 05/20/25 15:00 05/20/25 16:58 Temperature 97.7 F L 97.7 F L 97.7 F L Temperature Source Axillary Axillary Axillary Pulse Rate 89 89 85 Respiratory Rate 16 16 16 Respiratory Pattern Blood Pressure 102/74 102/74 102/74 Blood Pressure Mean 83 83 83 Pulse Ox 100 100 100 Oxygen Delivery Method Nasal Cannula Nasal Cannula Oxygen Flow Rate (L/min) 2 2 05/20/25 17:17 05/20/25 17:26 05/20/25 19:08 Temperature Temperature Source Pulse Rate 81 104 H Respiratory Rate 16 19 H Respiratory Pattern Blood Pressure Blood Pressure Mean Pulse Ox 100 98 100 Oxygen Delivery Method Nasal Cannula Nasal Cannula Oxygen Flow Rate (L/min) 2 05/20/25 19:49 05/20/25 20:18 05/20/25 20:57 Temperature Temperature Source Pulse Rate 83 101 H 108 H Respiratory Rate 16 18 22 H Respiratory Pattern Normal Blood Pressure 107/69 Blood Pressure Mean 81 Pulse Ox 99 100 Oxygen Delivery Method Room Air Room Air Oxygen Flow Rate (L/min) Positive contractures Constitutional Narrative: Chronically ill-appearing, no acute distress General Appearance ED: contractures; Negative for pallor HEENT Reports TM's clear and dry mucous membranes Negative for trauma Tympanic Membrane ED: Yes TM's clear Mouth ED: Yes dry mucous membranes Mouth: dry mucous membranes Eyes PERRL and EOMs intact bilaterally Neck supple Chest Wall inspection of chest normal and palpation of chest normal Resp normal respiratory effort and clear to auscultation bilaterally Cardio regular rate, regular rhythm and no murmurs GI non-tender GI Narrative: Protuberant abdomen. G-tube in place. Bandage medial to that consistent with prior G-tube site that still spontaneously drains per mother. Fullness in the suprapubic region consistent with a baclofen pump. No peritoneal signs. Active bowel sounds. Narrative: Myles catheter in place Extremity Extremity Narrative: Atrophy and contractures extremities Neuro Neuro Narrative: Somnolent, generally weak. ANO x 0. Nonverbal. Sleeping. Skin General Skin Exam: Negative for jaundice or pallor MDM MDM MDM Narrative Medical decision making narrative: Patient is evaluated for decreased urine output. Is currently on IV antibiotics for sacral wound. Has had recent URI symptoms. Differential includes not limited to hypovolemia, DAE, vancomycin toxicity, dislodged Myles catheter, urinary retention and kidney stone. Myles catheter is replaced and she Smidt continues to have very minimal urine output. Placement is confirmed with bedside ultrasound by myself. Initially patient's PICC line is not drawing however it does flush. Cathflo instilled by nursing staff and her PICC line now easily draws. CBC shows a leukocytosis of 13.2, uncertain clinical significance however will look for further signs of infection. Patient is currently on broad-spectrum antibiotics. She has mild anemia the hemoglobin 11.1. BMP shows hyperkalemia with potassium of 6.0, bicarb of 25, anion gap of 16, BUN of 78 and creatinine of 3.12. Is consistent with acute kidney injury and associated hyperkalemia. Urinalysis does show signs of infection with 500 leukocyte esterase, 10-25 white blood cells and 3+ bacteria however given she is on currently antibiotics and not sure if this is actually just chronic colonization. Vancomycin random level is 88.8 which would be consistent with vancomycin toxicity. Unclear if elevated level because of the DAE or if this caused her DAE. This patient is a unreliable historian and physical exam I did add on CT abdomen pelvis to ensure she does not have acute kidney stone or other structural cause of her acute renal failure. This is negative for any acute process. EKG is obtained to look for changes associated hyperkalemia. This does not have any in his normal sinus rhythm with normal intervals. Patient is given IV insulin, glucose, albuterol for hyperkalemia. She is given IV fluids in the ER. Will be admitted for further treatment of acute kidney injury and hyperkalemia. Mother is agreeable this plan of care Lab Data Attestation: I reviewed the patient's lab results. Labs: Laboratory Results - last 24 hr 05/20/25 05/20/25 05/20/25 18:05 18:15 20:23 WBC 13.2 H RBC 4.06 L Hgb 11.1 L Hct 37.2 MCV 91.6 MCH 27.3 MCHC 29.8 L RDW Std Deviation 50.6 H RDW Coeff of Chad 15.0 H Plt Count 290 MPV 10.2 Immature Gran % (Auto) 0.500 Neut % (Auto) 78.6 H Lymph % (Auto) 9.5 L [place] % (Auto) 9.9 Eos % (Auto) 1.0 Baso % (Auto) 0.5 Absolute Neuts (auto) 10.4 H Absolute Lymphs (auto) 1.25 Nucleated RBC % 0 Sodium 139 Potassium 6.0 H* Chloride 97 L Carbon Dioxide 25.2 Anion Gap 16 H BUN 78 H Creatinine 3.12 H Est GFR (MDRD) Non-Af 19 L BUN/Creatinine Ratio 25.1 H Glucose 103 H Calcium 9.3 Phosphorus 5.3 H Magnesium 3.5 H Urine Color Yellow Urine Clarity Sl. Cloudy Urine pH 6.5 Ur Specific [place] 1.010 Urine Protein 100 H Urine Glucose (UA) Normal Urine Ketones Negative Urine Occult Blood 250 H Urine Nitrite Negative Urine Bilirubin Negative Urine Urobilinogen Normal Ur Leukocyte Esterase 500 H Urine RBC 5-10 SEEN Urine WBC 10-25 SEEN Ur Squamous Epith Cells 0-5 SEEN Ur Renal Epithelial Cell 0-5 SEEN Urine Bacteria 3+ Urine Mucus 0 SEEN Ur Random Sodium 36 Urine Creatinine 19.70 L Random Vancomycin POC Glucose 96 05/20/25 05/20/25 21:07 21:19 WBC RBC Hgb Hct MCV MCH MCHC RDW Std Deviation RDW Coeff of Chad Plt Count MPV Immature Gran % (Auto) Neut % (Auto) Lymph % (Auto) [place] % (Auto) Eos % (Auto) Baso % (Auto) Absolute Neuts (auto) Absolute Lymphs (auto) Nucleated RBC % Sodium Potassium Chloride Carbon Dioxide Anion Gap BUN Creatinine Est GFR (MDRD) Non-Af BUN/Creatinine Ratio Glucose Calcium Phosphorus Magnesium Urine Color Urine Clarity Urine pH Ur Specific [place] Urine Protein Urine Glucose (UA) Urine Ketones Urine Occult Blood Urine Nitrite Urine Bilirubin Urine Urobilinogen Ur Leukocyte Esterase Urine RBC Urine WBC Ur Squamous Epith Cells Ur Renal Epithelial Cell Urine Bacteria Urine Mucus Ur Random Sodium Urine Creatinine Random Vancomycin 88.8 H POC Glucose 254 H Radiography Diagnostic Testing: Clinical Impression(s) from Imaging Studies Abdomen/Pelvis CT 05/20/25 19:39 IMPRESSION: Gastrointestinal findings to be correlated clinically are discussed above in detail. - Severe right-sided ischial decubitus ulcer contacting the bony cortex of the ischium. Osteomyelitis is suspected. - Multiple other findings and study limitations discussed above. Reading Location: [id number] Rhythm Strip Rhythm Strip: Sinus Rhythm Rate: 97 Ectopy: None EKG Initial EKG: Attestation: I personally reviewed and interpreted this EKG as follows: Interpretation: Sinus Rhythm Comments: Normal sinus rhythm rate of 97 bpm Normal axis Normal intervals Normal ST segments Management Discussion w/another healthcare provider: Hospitalist Discharge Plan Dx/Rx/DC Orders Clinical Impression: DAE (acute kidney injury), Quadriplegic infantile cerebral palsy, Acute hyperkalemia, Chronic indwelling Myles catheter Disposition Disposition: Acute Care Hospital [facility] Discharge Date/Time: 05/20/25 23:25
--- OUTSIDE RECORDS SUMMARY | 2025-05-20 17:09 | XMS RPT_ITS | CCD ---
Author Organization [facility] CliniSyde Care Team Providers Care [employer]way Conductor Name Role Phone Colette Goode Unavailable Unavailable Unavailable Unavailable Sokari, Telemate A. Unavailable Unavailable Sokari, Telemate A. Unavailable Unavailable DEBORA HART Unavailable Unavailable DEBORA HART Unavailable Unavailable Colette Goode Primary Care Provider Unavailable Primary Care Provider Unavailabl e Colette Goode Primary Care Provider Colette Goode Primary Care Provider [phone] Colette Goode MD Primary Care Provider Colette Goode MD Primary Care Provider [phone] COLETTE GOODE Primary Care Unavailable WERNER KAPLAN Attending Unavailable WERNER KAPLAN Admitting Unavailable MARIELLE DUQUE Referring Unava ilable WERNER KAPLAN Attending Unavailable WERNER KAPLAN Admitting Unavailable COLETTE GOODE Primary Care Unavailable Colette Goode MD Primary Care Provider ALEX VELASCO Admitting Unavailable ALEX VELASCO Attending Unavailable RUPA, COLETTE L Primary Care Unavailable RUPA, COLETTE L Primary Care Unavailable YANY WRIGHT Referring Unavailable RENÉ SPEAR Attending Unavailable RUPA, COLETTE L Primary Care Unavailable RUPA, COLETTE L Primary Care Unavailable ERICH CHAVES Referring Unavailable AMANDA SUE Attending Unavailable ALEX VELASCO Admitting Unavailable ALEX VELASCO Attending Unavailable RUPA, COLETTE L Primary Care Unavailable Dunia ANDINO, Marielle Crow Primary Care Provi beba Marielle Duque MD Primary Care Provi beba [facility] DUNIA MARIELLE CROW [facility] Unava ilable KHADAR YOO BABY Referring Unavailable Colette Goode MD Primary Care Provider MIGNON JORDAN Attending Unavailable RUMA GODWIN Admitting Unavailabl e WONGGELRUMA Sanchez Referring Unavailabl e DUNIA MARIELLE CROW [facility] Unava ilable MIGNON JORDAN Attending Unavailable RUMA GODWIN Admitting Unavailabl e WONGGELRUMA Sanchez Referring Unavailabl e DUNIA MARIELLE CROW [facility] Unava ilable Jason ANDINO, Stephy Davis Unavailable [phone] DUQUE, MARIELLE CROW [facility] Unava ilable RUMA GODWIN Attending UnavailRUMA Harris Admitting Unavailabl e CELENA FIELDS Admitting Unavailable CELENA FIELDS Attending Unavailable DUNIA MARIELLE CROW [facility] Unava ilable RENETTA STACK Consulting Unavailable ADRIENNE MCLEAN Attending Unavailable DUNIA MARIELLE CROW [facility] Unava ilable KAREN HARRIS Admitting Unav ailable [place] [employer] Consulting Unavailable LINDA AHUJA Consulting Unavailable GINO Ye, NIKKY BOSS Consulting Unava ilable [facility] Consulting Unav ailable DUQUE, MARIELLE CROW [facility] Unava ilable CELENA FIELDS Attending Unavailable RUMA GODWIN Admitting Unavailabl e DUNIA MARIELLE MIGNON [facility] Unava ilable CELENA FIELDS Attending Unavailable RUMA GODWIN Admitting Unavailkemal maritza [facility] Unava ilable CELENA FIELDS Admitting Unavailable CELENA FIELDS Attending Unavailable Rupa ANDINO, Dr. Colette Cordova Primary Care Provider Dr. Colette Goode MD Referring Provider Hubert QUINONES, Onelia Other Provider Rolando COMPREHENSIVE OPHTHALMOLOGIST-C, Jaimee Attending Provider Rolando COMPREHENSIVE OPHTHALMOLOGIST-C, Jaimee Other Provider [phone] Onelia Viramontes Attending Provider [phone] Onelia Viramontes Referring Provider Sivakumar ANDINO, Dr. Oneill Emergency Provider Sivakumar ANDINO, Dr. Oneill Attending Provider [phone] Raghu ANDINO, Dr. Milligan Attending Provider Raghu ANDINO, Dr. Milligan Referring Provider Henny ANDINO, Dr. Triplett Attending Provider [phone] LALI ANDINO~[id number], LALI PÉREZ Admi tting Unavailable LALI ANDINO, ALEX PÉREZ Consulting Unavaila nayan ESCALERA MD~[id number], LALI PÉREZ Attmaritza nding Unavailable DUNIA ANDINO, DR PALOMARES Primary Care Unavail able ALEX ESCALERA MD Consulting Unavailshilpa DUQUE MD, DR PALOMARES Consulting Unavail able DUNIA ANDINO, DR PALOMARES Consulting Unavail able LALI ANDINO~[id number], LALI BROWN RAY Admi tting Unavailable LALI ANDINO, ALEX PÉREZ Consulting Unavaila nayan ESCALERA MD~[id number], LALI House nddago Unavailable DUNIA ANDINO, DR PALOMARES Primary Care Unavail able LALI ANDINO, ALEX PÉREZ Consulting Unavaila ble [employer]ERS STUDIO SALES ASSOCIATE~[id number], LEENAERS ELIZABETH Admittin g Unavailable [employer]OCIATE~[id number], LEENAERS ELIZABETH Attendin g Mirella DUQUE MD, DR PALOMARES Consulting Unavail adolfo DUQUE MD, DR PAOLMARES Primary Care Unavail able DUNIA ANDINO, DR PALOMARES Consulting Unavail able CULLJANELLE STUDIO SALES ASSOCIATE, ELIZABETH Consulting Unavailable [employer] SALES ASSOCIATE, ELIZABETH Consulting Unavailable ABELARDO ANDINO~[id number], ABELARDO Barroso Attending Unavailable ABELARDO ANDINO~[id number], ABELARDO Barroso Admitting Unavailable TRIP ANDINO, DANIEL Consulting Unavailable DUNIA ANDINO DR~[phone] MARIELLE Primary Care Unavailable TRIP ANDINO, DANIEL Consulting Unavailable TASNEEM CEBALLOS MD Consulting Unavailable TUCKER ANDINO, TASNEEM Trujillo Consulting Unavailable DUNIA ANDINO, DR PALOMARES Consulting Unavail adolfo DUQUE MD, DR PALOMARES Consulting Unavail adolfo BATISTA MD, MAGALIE Consulting Unavailable LESTER ANDINO, MAGALIE Consulting Unavailable REGAN ANDINO, Shilpa Barroso Consulting Unavailab narinder SPEARS MD, Shilpa Barroso Consulting Unavailab narinder BREAUX DO, MIREYA Barroso Consulting Unavail able NAMITA MURRIETA, MIREYA Barroso Consulting Unavail adolfo ZHOU MD, MARCK Barroso Consulting Unavailable ABELARDO ANDINO, MARCK Barroso Consulting Unavailable DUNIA ANDINO, DR PALOMARES Consulting Unavail adolfo DUQUE MD, DR PALOMARES Primary Care Unavail adolfo ALBARRAN MD~[id number], AVIS BONILLA Attendnino boo Unavailable AVIS ANDINO~[id number], AVIS DUQUE MD, DR PALOMARES Consulting Unavail able AVIS ANDINO, CHAD Consulting Unavailable AVIS ANDINO, CHAD Consulting Unavailable DARREN ANDINO, ANALY P Consulting Unavailable DARREN ANDINO, ANALY P Consulting Unavailable LISSETT MURRIETA, JEANNE Campbell Consulting Unavailable LISSETT MURRIETA, JEANNE Campbell Consulting Unavailable ABELARDO ANDINO, MARCK Barroso Consulting Mirella ZHOU MD, MARCK Barroso Consulting Unavailable DAVID ANDINO~[id number], DAVID PEREZ Admitting U nick HERNANDEZ MD~[id number], DAVID PEREZ Attending Arturo DUQUE MD, DR PALOMARES Consulting Unavail adoflo DUQUE MD, DR PALOMARES Primary Care Unavail adolfo DUQUE MD, DR PALOMARES Consulting Unavail adolfo HERNANDEZ MD, ANA Consulting Unavailable DAVID ANDINO, ANA Consulting Unavailable MEGA ANDINO, SHIMA Barroso Consulting Unavailable MEGA ANDINO, SHIMA Barroso Consulting Unavailable DAVID ANDINO~[id number], DAVID PEREZ Admitting U nick HERNANDEZ MD~[id number], DAVID PEREZ Attending Arturo DUQUE MD, DR PALOMARES Consulting Unavail adolfo DUQUE MD, DR PALOMARES Primary Care Unavail adolfo DUQUE MD, DR PALOMARES Consulting Unavail adolfo CORMIER MD, ~[phone] KI Massey Attending Unavailable GENIA ANDINO, ~[id number] KI Massey Admitting Mirella DUQUE MD, ~[id number] MARIELLE [facility] Unavailable SAULO ANDINO, ANAHI Consulting Unavailable SAULO ANDINO, ANAHI Consulting Unavailable DUNIA ANDINO, DR PALOMARES Consulting Unavail adolfo DUQUE MD, DR PALOMARES Consulting Unavail adolfo CORMIER MD, DR KI Massey Consulting Unavailshilpa CORMIER MD, DR KI aMssey Consulting Unavailshilpa ESCALERA MD~[id number], LALI PÉREZ Admi tting Unavailable LALI ANDINO, ALEX PÉREZ Consulting Unavailshilpa ESCALERA MD~[id number], LALI PÉREZ Atte nding Unavailable DUNIA ANDINO, DR PALOMARES Primary Care Unavail adolfo ESCALERA MD, ALEX PÉREZ Consulting Unavailshilpa DUQUE MD, DR PALOMARES Consulting Unavail adolfo DUQUE MD, DR PALOMARES Consulting Unavail able DUNIA, MARIELLE CROW [facility] Care Unava ilable STEPHY CISSE Attending Unavailable WRIGHT, YANY HUERTAS Attending Unavailable DUNIA, MARIELLEJAK CROW [facility] Care Unava ilable ADRIANA, YANY HUERTAS Attending Unavailable DUNIA, MARIELLEJAK CROW Primary Care Unava ilable Raghu, Shima Attending Unavailable Shima Krishnamurthy Referring Unavailable Rupa, Colette L Primary Care Unavailable Rupa, Colette L Referring Unavailable Rupa, Colette L Primary Care Unavailable Gaspar, Onelia Consulting Unavailable Gaspar, Onelia Attending Unavailable Marshall COMPREHENSIVE OPHTHALMOLOGIST, Jaimee Consulting Unavailable Rupa, Colette L Referring Unavailable Rupa, Colette L Primary Care Unavailable Gaspar, Onelia Attending Unavailable Gaspar, Onelia Consulting Unavailable Marshall COMPREHENSIVE OPHTHALMOLOGIST, Jaimee Consulting Unavailable Rupa, Colette L Referring Unavailable Gaspar, Onelia Attending Unavailable Gaspar, Onelia Consulting Unavailable Rupa, Colette L Primary Care Unavailable Marshall COMPREHENSIVE OPHTHALMOLOGIST, Jaimee Consulting Unavailable Rupa, Colette L Referring Unavailable Rupa, Colette L Primary Care Unavailable Gaspar, Onelia Consulting Unavailable Gaspar, Onelia Attending Unavailable Marshall COMPREHENSIVE OPHTHALMOLOGIST, Jaimee Consulting Unavailable Rupa, Colette L Primary Care Unavailable Rupa, Colette L Referring Unavailable Gaspar, Onelia Attending Unavailable Gaspar, Onelia Consulting Unavailable Marshall COMPREHENSIVE OPHTHALMOLOGIST, Jaimee Consulting Unavailable Rupa, Colette L Primary Care Unavailable Rupa, Colette L Referring Unavailable Gaspar, Onelia Consulting Unavailable Gaspar, Onelia Attending Unavailable Marshall COMPREHENSIVE OPHTHALMOLOGIST, Jaimee Consulting Unavailable Uziel Inman Attending Unavailable Rupa, Colette L Primary Care Unavailable Rupa, Colette L Referring Unavailable Gaspar, Onelia Consulting Unavailable Marshall COMPREHENSIVE OPHTHALMOLOGIST, Jaimee Consulting Unavailable Rupa, Colette L Primary Care Unavailable Rupa, Colette L Referring Unavailable Gaspar, Onelia Attending Unavailable Gaspar, Onelia Consulting Unavailable Marshall COMPREHENSIVE OPHTHALMOLOGIST, Jaimee Consulting Unavailable Gaspar, Onelia Attending Unavailable Gaspar, Onelia Referring Unavailable Rupa, Colette L Primary Care Unavailable Rupa, Colette L Primary Care Unavailable RaghuShima Referring Unavailable RaghuShima Attending Unavailable Gaspar, Onelia Consulting Unavailable Nino Shaver Attending Unavailable Rupa, Colette L Primary Care Unavailable Rupa, Colette L Referring Unavailable Marshall COMPREHENSIVE OPHTHALMOLOGIST, Jaimee Attending Unavailable Rupa, Colette L Primary Care Unavailable Gaspar, Onelia Consulting Unavailable Rupa, Colette L Primary Care Unavailable Marshall COMPREHENSIVE OPHTHALMOLOGIST, Jaimee Attending Unavailable Rupa, Colette L Referring Unavailable Gaspar, Onelia Consulting Unavailable Rupa, Colette L Referring Unavailable Marshall COMPREHENSIVE OPHTHALMOLOGIST, Jaimee Attending Unavailable Rupa, Colette L Primary Care Unavailable Gaspar, Onelia Consulting Unavailable Raghu, Shima Referring Unavailable Raghu, Shima Attending Unavailable Rupa, Colette L Primary Care Unavailable Shima Krishnamurthy Referring Unavailable Shima Krishnamurthy Attending Unavailable Rupa, Colette L Primary Care Unavailable Allergies Allergy Classification Reported Allergen(s) Allergy Type Date of Onset Reaction(s) Facility Amoxicillin / Clavulanate (7 sources) Amoxicillin / Clavulanate Drug Allergy 6 Rash [facility] Work Phone: Lactase (8 sources) Lactase; Translations: [LACTASE] Drug Allergy 7 [facility] Penicillins (antibiotic) (8 sources) Penicillins; Translations: [PENICILLINS] Drug Allergy 9 Other (See Comments) [facility] Work Phone: Quinolones (antibiotic) (8 sources) levoFLOXacin; Translations: [LEVOFLOXACIN] Drug Allergy 7 [facility] (20 sources) amoxicillin / clavulanate; Translations: [AMOXICILLIN-POT CLAVULANATE] Propensity to adverse reactions to drug 1 Rash [facility] Work Phone: (20 sources) lactase; Translations: [LACTASE] Propensity to adverse reactions to drug 7 [facility] Work Phone: (20 sources) levoFLOXacin; Translations: [LEVOFLOXACIN] Propensity to adverse reactions to drug 7 [facility] Work Phone: (20 sources) RAGWEED; Translations: [RAGWEED] Propensity to adverse reactions to drug 6 Unknown [facility] Work Phone: (1 source) Seasonal allergy; Translations: [SEASONAL ALLERGIES] Propensity to adverse reactions (disorder) 5 F [facility] Repository (20 sources) Penicillins; Translations: [PENICILLINS] Propensity to adverse reactions to drug 9 Other (See Comments), Blisters [facility] (20 sources) Penicillins Propensity to adverse reactions to drug 9 Other (See Comments) [facility] (1 source) *Seasonal Propensity to adverse reactions to substance 2 [facility] (20 sources) Penicillins Propensity to adverse reactions to drug 9 Other (See Comments) [facility] (5 sources) Penicillins Propensity to adverse reactions to drug 9 Other (See Comments) [facility] (4 sources) cefdinir Drug Allergy 5 Fever and skin rash [facility] (4 sources) Ciprofloxacin Drug Allergy 5 Rash [facility] (1 source) Amoxicillin / Clavulanate Drug Allergy [facility] Repository (1 source) Lactose Drug Allergy [facility] Rep[facility] (1 source) Penicillins Drug allergy (disorder) [facility] Repository (1 source) cefdinir Drug Allergy 5 [facility] Repository (1 source) Ciprofloxacin Drug Allergy 5 [facility] Repository (1 source) Penicillins Drug allergy (disorder) 5 [facility] Repository Medications Current Medications Medication Drug Class(es) Dates Sig (Normalized) Sig (Original) acetaminophen 325 mg oral tablet (20 sources) Start: 03-14-2025 take 1 tablet by mouth every six hours as needed for pain Acetaminophen (Aphen) 325 mg tablet Active 325 mg PO EVERY 6 HOURS as needed for fever or pain March 14, 2025 12:00am Start: 07-15-2022 End: 07-22-2022 650 mg, Tube, Every 4 hours PRN, fever 100.4 F or greater, headaches, mild pain, Starting on Wed07/15/22 at 0025 Start: 09-23-2020 End: 09-25-2020 take 1 tablet by mouth every four hours as needed 650 mg, Oral, Every 4 hours PRN, mild pain, fever 100.4 F or greater, headaches, Starting 09/23/20 at 2156 Start: 09-23-2020 End: 09-23-2020 acetaminophen (TYLENOL) solu tion 650 mg Start: 03-21-2020 End: 03-22-2020 take 1 tablet by mouth every six hours as needed 650 mg, Tube, Every 6 hours PRN, mild pain, fever 100.4 F or greater, Starting Lenka 03/21/20 at 1944 Start: 02-12-2020 End: 02-14-2020 take 1 tablet by mouth every six hours as needed acetaminophen (TYLENOL) tablet 650 mg Start: 02-12-2020 End: 02-12-2020 acetaminophen (TYLENOL) suppository 325 mg Start: 10-21-2019 End: 10-24-2019 take 1 tablet by mouth every six hours as needed 650 mg, Oral, Every 6 hours PRN, mild pain, fever 100.4 F or greater, Starting 10/21/19 at 1841 Start: 09-20-2019 End: 09-27-2019 take 1 tablet by mouth every six hours as needed 650 mg, Tube, Every 6 hours PRN, mild pain, fever 100.4 F or greater, Starting 09/20/19 at 0317 Start: 09-19-2019 End: 09-19-2019 acetaminophen (TYLENOL) solu tion 500 mg Start: 11-29-2018 End: 12-05-2018 take 1 tablet by mouth every six hours as needed 650 mg, Tube, Every 6 hours PRN, mild pain, fever 100.4 F or greater, headaches, Starting 11/29/18 at 0143 take 2 tablets enter al route every six hours as needed for pain acetaminophen (TYLENOL) 325 MG tablet Take 2 (two) tablets (650 mg total) per G-tube every 6 (six) hours as needed for pain . Active take 2 tablets enter al route every six hours as needed for pain acetaminophen (TYLENOL) 325 MG tablet 2 (two) tablets (650 mg total) by G-tube route every 6 (six) hours as needed for pain . Active take 200 mg rectal r oute every four hours as needed acetaminophen 120 MG Suppository Insert 200 mg rectally every 4 hours as needed. 0 Active acetaminophen 32 5 MG tablet Take 500 mg by mouth every 4 hours. 0 Active take 2 tablets intra gastric route every six hours as needed acetaminophen (TYLENOL) 325 MG tablet 650 mg by G-tube route every 6 (six) hours as needed for pain . Active take 2 tablets by mo uth every six hours acetaminophen (TYLENOL) 325 MG tablet 650 mg by G-tube route every 6 (six) hours as needed for pain . Active acetic acid 2.5 mg/ml irrigation solution (20 sources) Start: 10-31-2021 acetic acid 0.25 % irrigation 120 mL daily Flush for bladder . 10/31/2021 Active Albuterol (Refill) 90 mcg/actuation aerosol (7 sources) Start: 03-14-2025 Albuterol (Refill) 90 mcg/actuation aerosol Active ug INHALATION March 14, 2025 12:00am 4 ml amikacin 250 mg/ml injection (7 sources) Aminoglycoside Antibacterial Start: 03-14-2025 inject 250 mg by intramuscular injection every twelve hours Amikacin 1,000 mg/4 mL solution Active 250 mg IM Q12H March 14, 2025 12:00am 1 ml baclofen 0.05 mg/ml injection (20 sources) gamma-Aminobutyric Acid-ergic Agonist Start: 03-14-2025 Baclofen 50 mcg/mL solution Active 50 ug INTRATH Q24H March 14, 2025 12:00am give day 1 of course of therapy Start: 05-06-2021 End: 04-23-2025 baclofen 40,000 mcg/20mL (2, 000 mcg/mL) Soln Indications: 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HCC) Simple continuous infusion ITB at daily dose of 651 mcg/day. . 40 mL 3 04/23/2025 Active Start: 12-05-2018 End: 09-25-2020 baclofen 40,000 mcg/20mL (2, 000 mcg/mL) Syrg 649 mcg by Intrathecal route daily . 100 mL 0 12/05/2018 09/25/2020 Discontinued (Stop Taking at Discharge) Start: 01-07-2018 End: 01-14-2022 baclofen (LIORESAL) 20 MG ta blet Indications: Spasticity Take 1 tablet as needed for baclofen withdrawal. 30 tablet 3 01/07/2018 02/14/2020 Discontinued (Error) Start: 08-02-2016 End: 01-07-2019 baclofen 40,000 mcg/20mL (2, 000 mcg/mL) Syrg 670 mcg by Intrathecal route daily. 100 mL 0 08/02/2016 12/05/2018 Discontinued (Reorder (Suppress CancelRx Message to Pharmacy)) baclofen 500 mcg /mL Solution 20 mL by Intrathecal route. 647 micrograms per day 0 Active cannabidiol 100 mg/ml oral solution (20 sources) Start: 08-04-2024 End: 11-06-2024 cannabidioL (Epidiolex) 100 mg/mL Soln Indications: Seizure disorder (HCC) Take 3.5 mL (350 mg total) per G-tube 2 (two) times a day . 220 mL 5 11/06/2024 Active Start: 01-18-2023 End: 08-04-2024 cannabidioL (Epidiolex) 100 mg/mL Soln Indications: Seizure disorder (HCC) 3.5 mL (350 mg total) by G-tube route 2 (two) times a day . 220 mL 3 04/04/2024 08/04/2024 Discontinued Start: 07-15-2022 End: 07-22-2022 350 mg (3.5 mL), G-tube, 2 t imes daily, First dose on Wed07/15/22 at 0030 OK to use home supply Hazardous Drug. Refer to [facility] Hazardous Drug List on [employer] for Additional Information. Cannabidiol (EPIDIOLEX) is FDA approved for seizures. Drug Name: cannabidiol Form: Solution Dose: 350 Dose Units: mg Length of Therapy: Indefinite How soon needed? (normally 72 hrs needed to procure): 0-24 hrs Reason for Non-Formulary: home med Start: 02-16-2022 cannabidioL (E pidiolex) 100 mg/mL Soln 3.5 mL (350 mg total) by G-tube route 2 (two) times a day . 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 192 mL 5 05/22/2020 10/02/2020 Discontinued (Reorder (Suppress CancelRx Message to Pharmacy)) End: 02-16-2022 cannabidioL (Epidiolex) 100 mg/mL Soln 350 mg by G-tube route 2 (two) times a day . 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 192 mL 5 05/22/2020 10/02/2020 Discontinued (Reorder) Start: 05-22-2020 take 3.2 mL by mouth twice daily cannabidioL (Epidiolex) 100 mg/mL Soln Indications: 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) Take 3.2 mL by mouth 2 (two) times a day . 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 130 mL 5 02/01/2019 03/10/2019 Active cefdinir 25 mg/ml oral suspension (1 source) Cephalosporin Antibacterial Start: 03-22-2020 End: 03-26-2020 take 12 mL by mouth twice daily cefdinir (OMNICEF) 125 mg/5 mL suspension Take 12 mL (300 mg total) by mouth 2 (two) times a day for 3 doses . *Discard remaining solution* 100 mL 0 03/22/2020 03/26/2020 Active clindamycin 15 mg/ml oral solution (3 sources) Lincosamide Antibacterial Start: 02-14-2020 End: 02-19-2020 take 300 mg by mouth every six hours clindamycin (CLEOCIN) 75 mg/5 mL solution Take 20 mL (300 mg total) by mouth every 6 (six) hours for 5 days . 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 Total dose is 15 mg as needed (For seizure or seizure cluster. May repeat 15 mg dose after 4 hours if initial dose ineffective. Max 2 doses in 24 hours.) . 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 Total dose is 15 mg as needed (For seizure or seizure cluster. May repeat 15 mg dose after 4 hours if initial dose ineffective. Max 2 doses in 24 hours.) . 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 Total dose is 15 mg as needed (For seizure or seizure cluster. May repeat 15 mg dose after 4 hours if initial dose ineffective. Max 2 doses in 24 hours.) . 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 Can repeat in 4 hours if needed in opposite nostril. . 4 each 2 08/14/2024 11/06/2024 Discontinued Start: 08-14-2024 take 1 spray(s) nasa l route once daily as needed diazePAM 10 mg/spray (0.1 mL) [place] 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 Can repeat in 4 hours if needed in opposite nostril. . 4 each 2 08/14/2024 Active Start: 02-21-2024 End: 08-14-2024 diazePAM (Valtoco) 15 mg/2 s pray (7.5/0.1mL x 2) [place] Indications: Intractable symptomatic generalized epilepsy (HCC) 7.5 mg by Each Nare route as needed (for seizure or seizure cluster. Can repeat in 4 hours if needed.) . 8 each 2 02/21/2024 08/14/2024 Discontinued Start: 02-21-2024 diazePAM (Valt oco) 15 mg/2 spray (7.5/0.1mL x 2) [place] Indications: Intractable symptomatic generalized epilepsy (HCC) 7.5 mg by Each Nare route as needed (for seizure or seizure cluster. Can repeat in 4 hours if needed.) . 8 each 2 02/21/2024 Active Start: 09-13-2023 End: 02-21-2024 diazePAM (Valtoco) 15 mg/2 s pray (7.5/0.1mL x 2) [place] Indications: Intractable symptomatic generalized epilepsy (HCC) 7.5 mg by Each Nare route as needed (for seizure or seizure cluster. Can repeat in 4 hours if needed.) . 8 each 2 09/13/2023 02/21/2024 Discontinued (Reorder (Suppress CancelRx Message to Pharmacy)) Start: 09-13-2023 diazePAM (Valt oco) 15 mg/2 spray (7.5/0.1mL x 2) [place] Indications: Intractable symptomatic generalized epilepsy (HCC) 7.5 mg by Each Nare route as needed (for seizure or seizure cluster. Can repeat in 4 hours if needed.) . 8 each 2 09/13/2023 Active Start: 08-02-2023 End: 09-13-2023 diazePAM (Valtoco) 15 mg/2 s pray (7.5/0.1mL x 2) [place] Indications: Intractable symptomatic generalized epilepsy (HCC) 7.5 mg by Each Nare route as needed (for seizure or seizure cluster. Can repeat in 4 hours if needed.) . 8 each 2 08/02/2023 09/13/2023 Discontinued (Reorder (Suppress CancelRx Message to Pharmacy)) Start: 08-02-2023 diazePAM (Valt oco) 15 mg/2 spray (7.5/0.1mL x 2) [place] Indications: Intractable symptomatic generalized epilepsy (HCC) 7.5 mg by Each Nare route as needed (for seizure or seizure cluster. Can repeat in 4 hours if needed.) . 8 each 2 08/02/2023 Active Start: 02-22-2023 End: 08-02-2023 diazePAM (Valtoco) 15 mg/2 s pray (7.5/0.1mL x 2) [place] Indications: Intractable symptomatic generalized epilepsy (HCC) 7.5 mg by Each Nare route as needed (for seizure or seizure cluster. Can repeat in 4 hours if needed.) . 8 each 1 02/22/2023 08/02/2023 Discontinued Start: 02-22-2023 diazePAM (Valt oco) 15 mg/2 spray (7.5/0.1mL x 2) [place] Indications: Intractable symptomatic generalized epilepsy (HCC) 7.5 mg by Each Nare route as needed (for seizure or seizure cluster. Can repeat in 4 hours if needed.) . 8 each 1 02/22/2023 Active Start: 09-01-2022 End: 02-22-2023 take 1 spray(s) nasal route once diazePAM (Valtoco) 15 mg/2 spray (7.5/0.1mL x 2) [place] Indications: Intractable symptomatic generalized epilepsy (HCC) instill 1 spray into each nostril if needed for SEIZURES MAY REPEAT 1 TIME IN 4 HOURS 8 each 1 09/01/2022 02/22/2023 Discontinued Start: 09-01-2022 take 1 spray(s) nasal route on ce diazePAM (Valtoco) 15 mg/2 spray (7.5/0.1mL x 2) [place] Indications: Intractable symptomatic generalized epilepsy (HCC) instill 1 spray into each nostril if needed for SEIZURES MAY REPEAT 1 TIME IN 4 HOURS 8 each 1 09/01/2022 Active Start: 07-19-2022 End: 07-22-2022 take 5 mg intravenously every six hours as needed diazePAM (VALIUM) syringe 5 mg Start: 07-16-2022 End: 07-19-2022 take 2.5 mg intravenously every six hours as needed 2.5 mg, Intravenous, Every 6 hours PRN, other, seizures, Starting on [place] 07/16/22 at 0235 VESICANT Start: 11-27-2021 End: 09-01-2022 diazePAM (Valtoco) 15 mg/2 s pray (7.5/0.1mL x 2) [place] Indications: Intractable symptomatic generalized epilepsy (HCC) Instill 1 spray into each nostril as needed (Seizures, may repeat times 1 in 4 hours) . 8 each 1 11/27/2021 09/01/2022 Discontinued Start: 11-27-2021 diazePAM (Valt oco) 15 mg/2 spray (7.5/0.1mL x 2) [place] Indications: Intractable symptomatic generalized epilepsy (HCC) Instill 1 spray into each nostril as needed (Seizures, may repeat times 1 in 4 hours) . 8 each 1 11/27/2021 Start: 11-27-2021 diazePAM (Valt oco) 15 mg/2 spray (7.5/0.1mL x 2) [place] Indications: Intractable symptomatic generalized epilepsy (HCC) Instill 1 spray into each nostril as needed (Seizures, may repeat times 1 in 4 hours) . 8 each 1 11/27/2021 Suspended Start: 11-27-2021 diazePAM (Valt oco) 15 mg/2 spray (7.5/0.1mL x 2) [place] Indications: Intractable symptomatic generalized epilepsy (HCC) Instill 1 spray into each nostril as needed (Seizures, may repeat times 1 in 4 hours) . 8 each 1 11/27/2021 Active Start: 05-15-2021 End: 11-27-2021 diazePAM (Valtoco) 15 mg/2 s pray (7.5/0.1mL x 2) [place] Indications: Intractable symptomatic generalized epilepsy (HCC) Instill 1 spray into each nostril as needed (Seizures, may repeat times 1 in 4 hours) . 8 each 05/15/2021 11/27/2021 Discontinued (Reorder (Suppress CancelRx Message to Pharmacy)) Start: 05-15-2021 End: 11-27-2021 diazePAM (Valtoco) 15 mg/2 s pray (7.5/0.1mL x 2) [place] Indications: Intractable symptomatic generalized epilepsy (HCC) Instill 1 spray into each nostril as needed (Seizures, may repeat times 1 in 4 hours) . 8 each 05/15/2021 11/27/2021 Discontinued (Reorder) Start: 05-15-2021 diazePAM (Valt oco) 15 mg/2 spray (7.5/0.1mL x 2) [place] Indications: Intractable symptomatic generalized epilepsy (HCC) Instill 1 spray into each nostril as needed (Seizures, may repeat times 1 in 4 hours) . 8 each 05/15/2021 Active Start: 04-30-2021 End: 05-15-2021 diazePAM (Valtoco) 15 mg/2 s pray (7.5/0.1mL x 2) [place] Indications: Intractable symptomatic generalized epilepsy (HCC) Instill 1 spray into each nostril as needed (Seizures, may repeat times 1 in 4 hours) . 8 each 04/30/2021 05/15/2021 Discontinued (Reorder) Start: 04-30-2021 diazePAM (Valt oco) 15 mg/2 spray (7.5/0.1mL x 2) [place] Indications: Intractable symptomatic generalized epilepsy (HCC) Instill 1 spray into each nostril as needed (Seizures, may repeat times 1 in 4 hours) . 8 each 04/30/2021 Active Start: 12-17-2020 End: 04-29-2021 diazePAM (Valtoco) 15 mg/2 s pray (7.5/0.1mL x 2) [place] Indications: Intractable symptomatic generalized epilepsy (HCC) Instill 1 spray into each nostril as needed (Seizures, may repeat times 1 in 4 hours) . 8 each 5 12/17/2020 04/29/2021 Discontinued (Reorder) Start: 12-17-2020 diazePAM (Valt oco) 15 mg/2 spray (7.5/0.1mL x 2) [place] Indications: Intractable symptomatic generalized epilepsy (HCC) Instill 1 spray into each nostril as needed (Seizures, may repeat times 1 in 4 hours) . 8 each 5 12/17/2020 Active Start: 09-23-2020 End: 09-25-2020 6 mg, Tube, Daily PRN, seizu res, Starting 09/23/20 at 2156 Start: 04-19-2020 End: 11-27-2021 diazePAM (VALIUM) 2 MG table t Indications: Intractable symptomatic generalized epilepsy (HCC) 3 (three) tablets (6 mg total) by Per G Tube route daily as needed For seizures . 30 tablet 11/27/2021 Active Start: 03-21-2020 End: 03-22-2020 6 mg, Tube, Daily PRN, seizu res, Starting [place] 03/21/20 at 1945 Start: 02-12-2020 End: 02-14-2020 6 mg, Tube, Daily PRN, seizu re, Starting 02/12/20 at 1828 Start: 10-21-2019 End: 10-24-2019 6 mg, Tube, Daily PRN, seizu res, Starting 10/21/19 at 1842 Start: 09-20-2019 End: 09-27-2019 6 mg, Tube, As needed, seizu re, Starting 09/20/19 at 0320 Start: 07-31-2019 End: 02-14-2020 take 3 tablets by mouth once daily as needed diazePAM (VALIUM) 2 MG tablet Indications: Intractable symptomatic generalized epilepsy (HCC) Take 3 tablets by mouth once daily as needed for seizure rescue . 30 tablet 2 07/31/2019 02/14/2020 Discontinued (Error) Start: 11-29-2018 End: 12-05-2018 diazePAM (VALIUM) tablet 6 m g Start: 11-04-2018 End: 02-01-2019 take 3 tablets by mouth once daily as needed diazePAM (VALIUM) 2 MG tablet Indications: Intractable symptomatic generalized epilepsy (HCC) Take 3 tablets by mouth once daily as needed for seizure activity . 30 tablet 2 02/01/2019 Active Start: 10-29-2017 End: 08-03-2018 take 3 tablets by mouth once daily as needed diazePAM (VALIUM) 2 MG tablet Indications: Intractable symptomatic generalized epilepsy (HCC) Take 3 tablets by mouth once daily as needed for seizure activity . 30 tablet 2 08/03/2018 Active Start: 12-22-2016 End: 04-26-2017 take 3 tablets by mouth once daily as needed diazePAM (VALIUM) 2 MG tablet Indications: Intractable symptomatic generalized epilepsy (HCC) Take 3 (three) tablets (6 mg total) by mouth daily as needed (Seizure activity). 30 tablet 5 04/26/2017 Active take 1 tablet by kena th every six hours as needed diazepam 2 MG Tab tablet Take 2 mg by mouth every 6 hours as needed for Anxiety. 0 Active diazePAM (VALIUM ) 2 MG tablet 6 mg by Per G Tube route daily as needed For seizures . 0 Active Diazepam (Valtoco) 15 mg/2 spray (7.5/0.1mL x 2) spray,non-aerosol (7 sources) Start: 03-14-2025 take 1 spray(s) nasal route every four hours Diazepam (Valtoco) 15 mg/2 spray (7.5/0.1mL x 2) spray,non-aerosol Active 15 mg INTRANASAL Q4H March 14, 2025 12:00am administer 1 spray in each nostril doxycycline monohydrate 100 mg oral capsule (20 sources) Tetracycli ne-class Drug Start: 03-14-2025 take 1 capsule by mouth twice daily Doxycycline Monohydrate 100 mg capsule Active 100 mg PO TWICE A DAY March 14, 2025 12:00am Start: 01-22-2023 take 1 tablet by kena th once daily doxycycline monohydrate (ADOXA) 100 MG tablet Take 1 (one) tablet (100 mg total) by mouth daily . 01/22/2023 Active Start: 01-15-2020 End: 01-14-2022 100 mg, Other, 2 times daily , First dose on Wed08/13/20 at 1800 Take 1 hour before or 4 hours after metallic cations (e.g.antacids, aluminum,magnesium, calcium, ferrous sulfate) Indication: Skin & Soft Tissue Infection Start: 01-15-2020 End: 02-14-2020 doxycycline hyclate (VIBRAMY FORREST) 100 MG capsule 100 mg by Per G Tube route 2 (two) times a day . 0 01/15/2020 02/14/2020 Discontinued (Stop Taking at Discharge) Start: 10-07-2018 End: 10-14-2018 take 1 tablet by mouth twice daily doxycycline hyclate (VIBRA-TABS) 100 MG tablet Take 1 (one) tablet (100 mg total) by mouth 2 (two) times a day for 7 days . 14 tablet 0 10/07/2018 10/14/2018 Active fluconazole 100 mg oral tablet (20 sources) Azole Antifungal Start: 03-14-2025 take 1 tablet by mouth once daily Fluconazole (Diflucan) 100 mg tablet Active 100 mg PO DAILY March 14, 2025 12:00am Start: 02-06-2021 fluconazole (D IFLUCAN) 150 MG tablet by Per G Tube route When taking antibiotics . 02/06/2021 Active Start: 02-06-2021 take 1 tablet by kena once daily fluconazole (DIFLUCAN) 150 MG tablet take 1 tablet by mouth once daily for 3 days if needed 0 02/06/2021 Active Start: 09-21-2019 End: 09-22-2019 fluconazole (DIFLUCAN) 10 mg /mL suspension 100 mg fluticasone propionate 0.05 mg/actuat metered dose nasal spray (20 sources) Corticosteroid Start: 03-14-2025 take 50 ug nasal route once daily as needed Fluticasone Propionate (Aller-Kenny) 50 mcg/actuation spray,suspension Active 2 NMA INTRANASAL DAILY as needed for nasal congestion March 14, 2025 12:00am administer into each nostril Start: 03-21-2020 End: 03-22-2020 1 spray, Nasal, Daily PRN, irritation, Starting [facility] 03/21/20 at 1946 Start: 01-11-2020 take 1 spray(s) nasa l route once daily as needed for rhinitis fluticasone propionate (FLONASE) 50 mcg/actuation nasal spray Indications: Aspiration, chronic pulmonary, initial encounter Instill 1 (one) spray into each nostril daily as needed for rhinitis . 16 g 11 01/11/2020 Active Start: 11-29-2018 End: 12-05-2018 2 spray, Nasal, Daily, First dose on 4/2/19 at 0900 End: 01-11-2020 take 1 spray(s) nasal route once daily as needed for rhinitis fluticasone (FLONASE) 50 mcg/actuation nasal spray Instill 1 spray into each nostril daily as needed for rhinitis . 0 01/11/2020 Discontinued (Reorder (Suppress CancelRx Message to Pharmacy)) Fluticasone Furo ate 27.5 MCG/SPRAY Suspension by Nasal route as needed. 0 Active gentamicin 0.001 mg/mg topical ointment (13 sources) Start: 04-07-2024 gentamicin (GARAMYCIN) 0.1 % ointment Apply 1 Application topically daily Apply to affected area . 04/07/2024 Active ibuprofen 200 mg oral tablet (10 sources) Nonsteroidal Anti-inflammatory Drug Start: 03-14-2025 Ibuprofen (Ibu-20 0) 200 mg tablet Active 200 mg PO Q8H March 14, 2025 12:00am Start: 10-21-2019 End: 10-21-2019 ibuprofen (ADVIL,MOTRIN) tab let 400 mg Start: 09-21-2019 End: 09-27-2019 take 1 tablet by mouth every six hours as needed ibuprofen (ADVIL,MOTRIN) tablet 400 mg Start: 11-28-2018 End: 11-28-2018 ibuprofen (ADVIL,MOTRIN) 100 mg/5 mL suspension 400 mg lamoTRIgine 150 mg oral tablet (20 sources) Mood Stabilizer, Anti-epileptic Agent Start: 02-21-2024 End: 11-06-2024 lamoTRIgine (LAMICTAL) 100 MG tablet Indications: Intractable symptomatic generalized epilepsy (HCC) 1 (one) tablet (100 mg total) by Per G Tube route 2 (two) times a day ALONG WITH 150 MG TABLET TO EQUAL 250 MG twice a day . 60 tablet 5 11/06/2024 Active Start: 02-21-2024 End: 11-06-2024 lamoTRIgine (LAMICTAL) 150 M G tablet Indications: Intractable symptomatic generalized epilepsy (HCC) 1 (one) tablet (150 mg total) by Per G Tube route 2 (two) times a day ALONG WITH 100 MG TABLET TO EQUAL 250 MG TWICE A DAY . 60 tablet 5 11/06/2024 Active Start: 01-07-2024 End: 02-21-2024 lamoTRIgine (LAMICTAL) 150 M G tablet Indications: Intractable symptomatic generalized epilepsy (HCC) TAKE 1 TABLET PER G TUBE TWICE A DAY 60 tablet 3 01/07/2024 02/21/2024 Discontinued (Reorder (Suppress CancelRx Message to Pharmacy)) Start: 09-13-2023 End: 02-21-2024 take 1 tablet by mouth twice daily lamoTRIgine (LAMICTAL) 100 MG tablet take 1 tablet by mouth twice a day ALONG WITH 150 MG TABLET TO EQUAL 250 MG PER DAY 60 tablet 1 12/27/2023 02/21/2024 Discontinued (Reorder (Suppress CancelRx Message to Pharmacy)) Start: 09-13-2023 End: 01-07-2024 take 1 tablet by mouth twice daily lamoTRIgine (LAMICTAL) 150 MG tablet Indications: Intractable symptomatic generalized epilepsy (HCC) Take 1 (one) tablet (150 mg total) by mouth 2 (two) times a day With 100 mg to equal 250 mg twice a day. . 60 tablet 1 09/13/2023 01/07/2024 Discontinued Start: 09-01-2023 lamoTRIgine (L AMICTAL) 100 MG tablet TAKE 1 TABLET PER G TUBE TWICE A DAY 60 tablet 1 09/01/2023 Active Start: 07-15-2022 lamoTRIgine (L AMICTAL) tablet 250 mg Start: 07-15-2022 End: 07-22-2022 250 mg, Tube, 2 times daily, First dose on Wed07/15/22 at 0900 Start: 10-17-2021 End: 09-13-2023 lamoTRIgine (LAMICTAL) 150 M G tablet Indications: Intractable symptomatic generalized epilepsy (HCC) TAKE 1 TABLET PER G TUBE TWICE A DAY 60 tablet 1 08/24/2023 Active Start: 10-17-2021 End: 09-13-2023 lamoTRIgine (LAMICTAL) 100 M G tablet TAKE 1 TABLET PER G TUBE TWICE A DAY 60 tablet 1 09/01/2023 09/13/2023 Discontinued (Reorder (Suppress CancelRx Message to Pharmacy)) Start: 09-24-2020 End: 09-25-2020 100 mg, Tube, 2 times daily, First dose on Wed09/24/20 at 0000 Start: 09-24-2020 End: 09-25-2020 150 mg, Tube, 2 times daily, First dose on Wed09/24/20 at 0000 Start: 08-13-2020 End: 08-13-2020 lamoTRIgine (LAMICTAL) table t 250 mg Start: 08-01-2020 End: 10-17-2021 lamoTRIgine (LAMICTAL) 100 M G tablet 1 (one) tablet (100 mg total) by Per G Tube route 2 (two) times a day Take with 150mg tablet . 60 tablet 11 10/02/2020 10/17/2021 Discontinued Start: 08-01-2020 End: 10-17-2021 lamoTRIgine (LAMICTAL) 150 M G tablet 1 (one) tablet (150 mg total) by Per G Tube route 2 (two) times a day Take with 100mg tablet . 60 tablet 11 10/02/2020 10/17/2021 Discontinued Start: 03-21-2020 End: 03-22-2020 100 mg, Tube, 2 times daily, First dose on Wed03/21/20 at 2215 Start: 03-21-2020 End: 03-22-2020 150 mg, Tube, 2 times daily, First dose on Wed03/21/20 at 2215 Take with 100 mg BID for a total dose of 250 mg BID Start: 09-20-2019 End: 09-27-2019 lamoTRIgine (LAMICTAL) table t 250 mg Start: 07-31-2019 End: 02-14-2020 take 1 tablet by mouth twice daily lamoTRIgine (LAMICTAL) 100 MG tablet Indications: Intractable symptomatic generalized epilepsy (HCC) Take 1 (one) tablet (100 mg total) by mouth 2 (two) times a day . 60 tablet 11 07/31/2019 02/14/2020 Discontinued (Error) Start: 07-31-2019 End: 02-14-2020 take 1 tablet by mouth twice daily lamoTRIgine (LAMICTAL) 150 MG tablet Take 1 (one) tablet (150 mg total) by mouth 2 (two) times a day Take with the Lamictal 100 mg tablets bid for a total of 250 mg bid. . 60 tablet 11 07/31/2019 02/14/2020 Discontinued (Error) Start: 11-29-2018 End: 12-05-2018 150 mg, Tube, 2 times daily, First dose on Wed11/29/18 at 0900 Start: 08-03-2018 End: 12-05-2018 take 1 tablet by mouth twice daily lamoTRIgine (LAMICTAL) 100 MG tablet Indications: Intractable symptomatic generalized epilepsy (HCC) Take 1 (one) tablet (100 mg total) by mouth 2 (two) times a day . 60 tablet 11 08/03/2018 Active Start: 08-03-2018 take 1 tablet by kena th twice daily lamoTRIgine (LAMICTAL) 150 MG tablet Take 1 (one) tablet (150 mg total) by mouth 2 (two) times a day Take with the Lamictal 100 mg tablets bid for a total of 250 mg bid. . 60 tablet 08/03/2018 Active Start: 07-26-2017 End: 07-07-2018 take 1 tablet by mouth twice daily lamoTRIgine (LAMICTAL) 100 MG tablet Indications: Intractable symptomatic generalized epilepsy (HCC) Take 1 (one) tablet (100 mg total) by mouth 2 (two) times a day. 60 tablet 07/26/2017 07/07/2018 Discontinued (Reorder (Suppress CancelRx Message to Pharmacy)) Start: 07-26-2017 End: 07-07-2018 take 1 tablet by mouth twice daily lamoTRIgine (LAMICTAL) 150 MG tablet Take 1 (one) tablet (150 mg total) by mouth 2 (two) times a day Take with the Lamictal 100 mg tablets bid for a total of 250 mg bid.. 60 tablet 07/26/2017 07/07/2018 Discontinued (Reorder (Suppress CancelRx Message to Pharmacy)) Start: 04-26-2017 End: 07-26-2017 take 1 tablet by mouth twice daily lamoTRIgine (LAMICTAL) 200 MG tablet Indications: Intractable symptomatic generalized epilepsy (HCC) Take 1 (one) tablet (200 mg total) by mouth 2 (two) times a day. 60 tablet 04/26/2017 07/26/2017 Discontinued Start: 04-26-2017 End: 07-26-2017 take 1 tablet by mouth once lamoTRIgine (LAMICTAL) 25 MG tablet Take 1 (one) tablet (25 mg total) by mouth nightly For 1 week then increase to 25 mg twice a day. Take with the Lamictal 200 mg tablets.. 60 tablet 5 04/26/2017 07/26/2017 Discontinued Start: 02-24-2017 End: 04-26-2017 lamoTRIgine (LAMICTAL) 25 MG tablet Take 2 tablets, 50 mg (200 mg total) at night for the next 2 weeks, if tolerating, no adverse effects, no rash then increase morning dose to (200 mg total). 120 tablet 5 02/24/2017 04/26/2017 Discontinued Start: 12-22-2016 End: 04-26-2017 take 1 tablet by mouth twice daily lamoTRIgine (LAMICTAL) 150 MG tablet Indications: Intractable symptomatic generalized epilepsy (HCC) Take 1 tablet (150 mg total) by mouth 2 (two) times a day. 60 tablet 11 12/22/2016 04/26/2017 Discontinued End: 08-01-2020 lamoTRIgine (LAMICTAL) 100 M G tablet 100 mg by Per G Tube route 2 (two) times a day Take with 150mg tablet . 0 08/01/2020 Discontinued (Reorder (Suppress CancelRx Message to Pharmacy)) End: 08-01-2020 lamoTRIgine (LAMICTAL) 150 M G tablet 150 mg by Per G Tube route 2 (two) times a day Take with 100mg tablet . 0 08/01/2020 Discontinued (Reorder (Suppress CancelRx Message to Pharmacy)) lamoTRIgine 200 MG Tab tablet Take 250 mg by mouth 2 times daily. 0 Active levETIRAcetam 100 mg/ml oral solution (20 sources) Anti-epileptic Agent Start: 04-09-2025 levETIRAc etam (KEPPRA) 100 mg/mL solution Indications: Intractable symptomatic generalized epilepsy (HCC) TAKE 18ML BY G-TUBE ROUTE TWICE DAILY 1080 mL 2 04/09/2025 Active Start: 03-14-2025 Levetiracetam 100 mg/mL solution Active PO March 14, 2025 12:00am Start: 10-14-2023 End: 04-09-2025 levETIRAcetam (KEPPRA) 100 m g/mL solution Indications: Staff states taking 18ml twice daily 18 mL (1,800 mg total) by Per G Tube route 2 (two) times a day Reasons: Staff states taking 18ml twice daily. 1080 mL 11 04/04/2024 04/09/2025 Discontinued Start: 08-24-2023 End: 09-13-2023 levETIRAcetam (KEPPRA) 100 m g/mL solution 12.5 mL (1,250 mg total) by Per G Tube route 2 (two) times a day If any seizures, increase to 15 ml (1500 mg total) twice a day through G tube. . 930 mL 6 09/13/2023 Active Start: 07-19-2022 levETIRAcetam (KEPPRA) injection 1,000 mg Start: 07-15-2022 End: 07-22-2022 levETIRAcetam (KEPPRA) solut ion 1,000 mg Start: 09-24-2020 End: 09-25-2020 1,000 mg, Tube, 2 times jessica y, First dose on Tu09/24/20 at 0000 Start: 08-13-2020 End: 08-13-2020 1,000 mg, Tube, 2 times jessica y, First dose on 08/13/20 at 2100 Start: 06-17-2020 End: 01-19-2022 take 10 mL by mouth twice daily levETIRAcetam (KEPPRA) 100 mg/mL solution TAKE 10 ML BY MOUTH TWICE DAILY 600 mL 3 06/17/2020 10/02/2020 Discontinued (Reorder (Suppress CancelRx Message to Pharmacy)) Start: 03-21-2020 End: 03-22-2020 376 mg (10 mg/kg 37.6 kg), T ube, 2 times daily, First dose on [place] 03/21/20 at 2215 Start: 02-12-2020 End: 02-14-2020 1,000 mg, Tube, 2 times jessica y, First dose on 02/12/20 at 2100 Start: 10-21-2019 End: 10-24-2019 1,000 mg, Tube, 2 times jessica y, First dose on 10/21/19 at 2100 Start: 09-20-2019 End: 09-27-2019 levETIRAcetam (KEPPRA) solut ion 1,000 mg Start: 09-20-2019 End: 09-20-2019 levETIRAcetam (Keppra) IVPB 1000 mg (premix) Start: 07-22-2019 End: 02-14-2020 take 10 mL by mouth twice daily levETIRAcetam (KEPPRA) 100 mg/mL solution Indications: Intractable symptomatic generalized epilepsy (HCC) Take 10 mL (1,000 mg total) by mouth 2 (two) times a day . 600 mL 11 07/24/2019 02/14/2020 Discontinued (Error) Start: 11-29-2018 End: 12-05-2018 take 1000 mg by mouth twice daily 1,000 mg, Oral, 2 times daily, First dose on Wed11/29/18 at 0900 Start: 01-19-2018 End: 08-03-2018 take 10 mL by mouth twice daily levETIRAcetam (KEPPRA) 100 mg/mL solution Indications: Intractable symptomatic generalized epilepsy (HCC) Take 10 mL (1,000 mg total) by mouth 2 (two) times a day . 600 mL 11 08/03/2018 Active Start: 12-22-2016 End: 01-19-2018 take 15 mL by mouth twice daily levETIRAcetam (KEPPRA) 100 mg/mL solution Indications: Intractable symptomatic generalized epilepsy (HCC) Take 15 mL (1,500 mg total) by mouth 2 (two) times a day. 946 mL 11 12/22/2016 01/19/2018 Discontinued End: 08-20-2023 levETIRAcetam (KEPPRA) 100 m g/mL solution 10 mL (1,000 mg total) by Per G Tube route 2 (two) times a day . 0 08/20/2023 Discontinued (Reorder (Suppress CancelRx Message to Pharmacy)) take 250 mg by mouth twice daily levetiracetam 100 MG/ML oral solution Take 250 mg by mouth 2 times daily. 0 Active lidocaine 25 mg/ml / prilocaine 25 mg/ml topical cream (20 sources) Antiarrhythmic, Amide Local Anesthetic Start: 04-05-2024 lidocaine-prilocaine (EMLA) cream Indications: Pain Apply topically See Admin Instructions Weekly as needed before pump refills. for 180 doses . 30 g 5 04/05/2024 Active Start: 03-09-2019 End: 03-08-2020 lidocaine-prilocaine (EMLA) cream Indications: Spasticity , Neuropathic pain Apply topically as needed . 30 g 0 03/09/2019 03/08/2020 linezolid 20 mg/ml oral suspension (5 sources) Oxazolidinone Antibacterial Start: 2025 take 400 mg by mouth twice daily Linezolid 100 mg/5 mL suspension for reconstitution Active 400 mg PO TWICE A DAY 560 14 2025 12:00am Start: 07-17-2022 End: 07-20-2022 take 600 mg intravenously every twelve hours linezolid (ZYVOX) IVPB 600 mg (premix) loratadine 10 mg oral tablet (20 sources) Start: 03-14-2025 take 1 tablet by mouth once daily Loratadine 10 mg tablet Active 10 mg PO DAILY March 14, 2025 12:00am Start: 07-15-2022 End: 07-22-2022 10 mg, Tube, Every morning, First dose on Wed07/15/22 at 0900 Start: 09-24-2020 End: 09-25-2020 10 mg, Tube, Every morning, First dose on Wed09/24/20 at 0900 Start: 08-14-2020 End: 08-13-2020 10 mg, Tube, Every morning, First dose on Wed08/14/20 at 0900 Start: 03-22-2020 End: 03-22-2020 10 mg, Tube, Every morning, First dose on Wed03/22/20 at 0900 Start: 02-13-2020 End: 02-14-2020 10 mg, Tube, Every morning, First dose on Wed02/13/20 at 0900 Start: 10-22-2019 End: 10-24-2019 10 mg, Tube, Every morning, First dose on Wed10/22/19 at 0900 Start: 09-21-2019 End: 09-27-2019 take 10 mg by mouth once daily in the morning 10 mg, Oral, Every morning, First dose on Wed09/21/19 at 0900 Start: 11-29-2018 End: 12-05-2018 10 mg, Tube, Every morning, First dose on Wed11/29/18 at 0900 loratadine (CLAR ITIN) 10 mg tablet Take 1 (one) tablet (10 mg total) per G-tube every morning . Active loratadine (CLAR ITIN) 10 mg tablet 10 mg by G-tube route every morning . Active 1 ml medroxyPROGESTERone acetate 150 mg/ml injection (20 sources) Progestin Start: 03-14-2025 inject 150 mg by intramuscular injection every month Medroxyprogesterone (Depo-Provera) 150 mg/mL suspension Active 150 mg IM EVERY MONTH March 14, 2025 12:00am every 3 months Start: 05-14-2020 medroxyPROGEST ERone (DEPO-PROVERA) 150 mg/mL Syrg INJECT 1ML INTRAMUSCULARLY EVERY 10 TO 13 WEEKS 05/14/2020 Active End: 02-14-2020 medroxyPROGESTERone (DEPO-MS OVERA) 150 mg/mL injection Inject 150 mg into the shoulder, thigh, or buttocks every 3 (three) months. 0 02/14/2020 Discontinued (Error) medroxyPROGESTER one Acetate (DEPO-PROVERA IM) Inject intramuscularly. 0 Active metoclopramide 5 mg oral tablet (2 sources) Dopamine-2 Receptor Antagonist take 1 tablet by mouth once daily metoclopramide 5 MG Tab tablet Take 5 mg by mouth daily. 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 6 mL 2 02/03/2018 08/03/2018 Discontinued (Ineffective) midazolam 5 mg/mL syringe wi th nasal atomizer (1 source) Start: 01-19-2018 midazolam 5 mg /mL syringe with nasal atomizer Indications: Intractable symptomatic generalized epilepsy (HCC) Instill 1 mL (5 mg total) into each nostril as needed with atomizer for seizures greater than 5 minutes or clusters.. 6 mL 2 01/19/2018 Active multivitamin (THERAGRAN) per tablet (20 sources) multivitamin (TH ERAGRAN) per tablet 1 tablet by G-tube route every morning. 0 Active multivitamin (TH ERAGRAN) per tablet 1 tablet by G-tube route every morning. Active Multivitamin Tablet (9 sources) multivitamin (TH ERAGRAN) per tablet 1 tablet by G-tube route every morning. Active multivitamin/iron/folic acid (CENTRUM ORAL) (20 sources) take 10 mL by mouth once daily in the morning multivitamin/iron/folic acid (CENTRUM ORAL) 10 mL by G-tube route every morning . Active take 10 mL by mouth once daily in the morning multivitamin/iron/folic acid (CENTRUM OR AL) 10 mL by G-tube route every morning . 0 take 10 mL by mouth once daily in the morning multivitamin/iron/folic acid (CENTRUM OR AL) 10 mL by G-tube route every morning . 0 Suspended take 10 mL by mouth once daily in the morning multivitamin/iron/folic acid (CENTRUM OR AL) 10 mL by G-tube route every morning . 0 Active omeprazole 40 mg delayed release oral capsule (20 sources) Proton Pump Inhibitor Start: 03-14-2025 take 1 capsule by mouth once daily Omeprazole 40 mg capsule,delayed release(DR/EC) Active 40 mg PO DAILY March 14, 2025 12:00am omeprazole (PRIL OSEC) 40 MG capsule Take 1 (one) capsule (40 mg total) per G- tube every morning . Active Omeprazole [address] tablet Take by mouth daily. 0 Active omeprazole (PRIL OSEC) 20 MG capsule 20 mg by G-tube route every morning . 0 Active omeprazole (PRIL OSEC) 20 MG capsule 20 mg by G-tube route every morning . Active omeprazole (PRIL OSEC) 20 MG capsule 20 mg by G-tube route every morning . Active pedi multivit 200-B. coagula ns (Just 4 Kidz Multivit-Probiotic) 1.25 mg Chew (20 sources) pedi multivit 20 0-B. coagulans (Just 4 Kidz Multivit-Probiotic) 1.25 mg Chew Chew and Swallow daily . Active pedi multivit 20 0-B. coagulans (Just 4 Kidz Multivit-Probiotic) 1.25 mg Chew Chew and Swallow daily . 0 Active perampanel 0.5 mg/ml oral suspension (19 sources) Noncompetitive AMPA Glutamate Receptor Antagonist Start: 01-18-2024 End: 08-19-2024 take 2 mL by mouth once daily perampaneL (Fycompa) oral suspension Indications: Intractable symptomatic generalized epilepsy (HCC) Take 2 mL (1 mg total) by mouth daily (Days supply per fill: 30) . 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 15 tablet 5 01/04/2024 02/21/2024 Discontinued polyethylene glycol 3350 89557 mg powder for oral solution (20 sources) Osmotic Laxative Start: 03-14-2025 Polyethylene Glycol 3350 (Clearlax) 17 gram/dose powder Active 17 g PO DAILY March 14, 2025 12:00am Start: 07-15-2022 End: 07-22-2022 17 g, Tube, Every morning, F irst dose on Wed07/15/22 at 0900 Start: 09-24-2020 End: 09-25-2020 17 g, Tube, Every morning, F irst dose on Wed09/24/20 at 0900 Start: 08-14-2020 End: 08-13-2020 17 g, Tube, Every morning, F irst dose on Wed08/14/20 at 0900 Start: 03-22-2020 End: 03-22-2020 17 g, Tube, Every morning, F irst dose on Wed03/22/20 at 0900 Start: 02-13-2020 End: 02-14-2020 17 g, Tube, Every morning, F irst dose on Wed02/13/20 at 0900 Start: 10-22-2019 End: 10-24-2019 17 g, Tube, Every morning, F irst dose on Wed10/22/19 at 0900 Start: 09-21-2019 End: 09-27-2019 polyethylene glycol (MIRALAX ) powder 17 g Start: 11-29-2018 End: 12-05-2018 17 g, Oral, Every morning, F irst dose on Wed11/29/18 at 0900 polyethylene gly col (MIRALAX) 17 gram powder 17 (seventeen) g by Per G Tube route every morning . Active predniSONE 1 mg/ml oral solu tion (20 sources) Start: 08-07-2022 predniSONE 5 m g/5 mL solution PRN . 08/07/2022 Active Start: 09-21-2019 End: 09-25-2019 predniSONE (DELTASONE) table t 40 mg promethazine hydrochloride 12.5 mg rectal suppository (20 sources) Phenothiazine Start: 03-14-2025 Promethazine 1 2.5 mg suppository Active 12.5 mg RC EVERY 6 HOURS March 14, 2025 12:00am nausea Start: 12-22-2021 End: 12-22-2021 take 6.25 mg intravenously every hour as needed promethazine (PHENERGAN) injection 6.25 mg Start: 09-23-2020 End: 09-25-2020 take 12.5 mg rectal route every six hours as needed 12.5 mg, Rectal, Every 6 hours PRN, nausea, Starting 09/23/20 at 2156 Start: 10-21-2019 End: 10-24-2019 take 12.5 mg rectal route every six hours as needed 12.5 mg, Rectal, Every 6 hours PRN, nausea, Starting 10/21/19 at 1849 Start: 09-20-2019 End: 09-27-2019 take 12.5 mg rectal route every six hours as needed 12.5 mg, Rectal, Every 6 hours PRN, nausea, Starting 09/20/19 at 0327 singular (7 sources) Start: 03-14-2025 singular Activ e March 14, 2025 12:00am traMADol hydrochloride 50 mg oral tablet (7 sources) Opioid Agonist Start: 03-14-2025 take 1 tablet by mouth once daily Tramadol 50 mg tablet Active 50 mg PO DAILY March 14, 2025 12:00am VITAMIN D, CHOLECALCIFEROL, PO (2 sources) VITAMIN D, CHOLECALCIFEROL, PO Take by mouth daily. 0 Active Completed/Discontinued Medications Medication Drug Class(es) Dates Sig (Normalized) Sig (Original) acetylcysteine 100 mg/ml inhalant solution (1 source) Antidote, Mucolytic, Antidote for Acetaminophen Overdose Start: 02-12-2020 End: 02-14-2020 acetylcysteine (MUCOMYST) 100 mg/mL (10 %) solution 4 mL albuterol 0.833 mg/ml / ipratropium bromide 0.167 mg/ml inhalant solution (4 sources) Anticholinergic, beta2-Adrenergic Agonist Start: 02-12-2020 End: 02-14-2020 take 3 mL by inhalation every four hours 3 mL, Inhalation, Every 4 hours scheduled (RT), First dose on 02/12/20 at 2000 Start: 02-12-2020 End: 02-14-2020 take 3 mL by inhalation every three hours as needed ipratropium-albuteroL (DUO-NEB) 0.5-2.5 mg/3 ml nebulizer solution 3 mL Start: 10-21-2019 End: 10-24-2019 take 3 mL by inhalation every four hours as needed 3 mL, Inhalation, Every 4 hours PRN (RT), wheezing, shortness of breath, Starting 10/21/19 at 1852 Start: 09-19-2019 End: 09-19-2019 ipratropium-albuterol (DUO-N EB) 0.5-2.5 mg/3 ml nebulizer solution 3 mL albuterol inhaler 2 puff (1 source) Start: 09-23-2020 End: 09-25-2020 take 2 puff(s) by inhalation every six hours as needed for wheezing 2 puff, Inhalation, Every 6 hours PRN (RT), wheezing, shortness of breath, Starting 09/23/20 at 2156 SPACER REQUIRED FOR ADMINISTRATION alteplase (CATH KENNY) 2 mg injection (20 sources) Start: 07-20-2022 End: 04-21-2023 alteplase (CATH KENNY) 2 mg injection Instill 2mL into clotted IV line as needed for line dancer. May repeat as needed. Do not use on Peripheral or Midlines . 2 mL 52 07/20/2022 04/21/2023 Discontinued (Therapy completed) Start: 07-20-2022 alteplase (CAT H KENNY) 2 mg injection Instill 2mL into clotted IV line as needed for line dancer. May repeat as needed. Do not use on Peripheral or Midlines . 2 mL 52 07/20/2022 Start: 07-20-2022 alteplase (CAT H KENNY) 2 mg injection Instill 2mL into clotted IV line as needed for line dancer. May repeat as needed. Do not use on Peripheral or Midlines . 2 mL 52 07/20/2022 Active alteplase (CATH KENNY) injecti on 2 mg (2 sources) Start: 11-27-2020 End: 11-27-2020 alteplase (CATH KENNY) injecti on 2 mg Start: 08-13-2020 End: 08-13-2020 alteplase (CATH KENNY) injecti on 2 mg aluminum hydroxide 40 mg/ml / magnesium hydroxide 40 mg/ml / simethicone 4 mg/ml oral suspension (6 sources) Start: 09-23-2020 End: 09-25-2020 take 30 mL by mouth every four hours as needed 30 mL, Oral, Every 4 hours PRN, indigestion, Starting 09/23/20 at 2156 Start: 03-21-2020 End: 03-22-2020 take 30 mL by mouth every four hours as needed 30 mL, Oral, Every 4 hours PRN, indigestion, Starting Lenka 03/21/20 at 1951 Start: 10-23-2019 End: 10-24-2019 aluminum-magnesium hydroxide-simethicone (MAALOX PLUS) 200-200-20 mg/5 mL suspension 30 mL Start: 09-21-2019 End: 09-27-2019 aluminum-magnesium hydroxide-simethicone (MAALOX PLUS) 200-200-20 mg/5 mL suspension 30 mL take 30 mL by mouth every six hours as needed Alum & Mag Hydroxide-Simeth (ALUM/MAG HYDROX.-SIMETHICONE) Suspension Take 30 mL by mouth every 6 hours as needed. 0 Active azithromycin (ZITHROMAX) 500 mg in sodium chloride (NS) 0.9% 250 mL (vialmate) (2 sources) Start: 09-20-2019 End: 09-21-2019 take 500 mg intravenous route every twenty-four hours azithromycin (ZITHROMAX) 500 mg in sodium chloride (NS) 0.9% 250 mL (vialmate) Start: 09-19-2019 End: 09-19-2019 azithromycin (ZITHROMAX) 500 mg in sodium chloride (NS) 0.9% 250 mL (vialmate) onabotulinumtoxina 100 unt injection (20 sources) Acetylcholine Release Inhibitor Start: 02-13-2025 End: 02-13-2025 botulinum toxin Type A (BOTOX) injection 600 Units Start: 02-13-2025 End: 02-13-2025 botulinum toxin Type A (BOTO X) injection 100 Units Start: 02-13-2025 End: 02-13-2025 inject 100 [IU] by intramuscular injection once 100 Units, Intramuscular, Once, On Wed02/13/25 at 1545, For 1 dose, Sample botox Start: 02-13-2025 End: 02-13-2025 inject 600 [IU] by intramuscular injection once 600 Units, Intramuscular, Once, On Wed02/13/25 at 1545, For 1 dose Start: 11-07-2024 End: 11-07-2024 botulinum toxin Type A (BOTO X) injection 600 Units Start: 11-07-2024 End: 11-07-2024 botulinum toxin Type A (BOTO X) injection 100 Units Start: 11-07-2024 End: 11-07-2024 inject 100 [IU] by intramuscular injection once 100 Units, Intramuscular, Once, On Wed11/07/24 at 1230, For 1 dose, Sample botox Start: 11-07-2024 End: 11-07-2024 inject 600 [IU] by intramuscular injection once 600 Units, Intramuscular, Once, On Wed11/07/24 at 1230, For 1 dose Start: 03-14-2024 End: 03-14-2024 botulinum toxin Type A (BOTO X) injection 600 Units Start: 03-14-2024 End: 03-14-2024 inject 600 [IU] by intramuscular injection once 600 Units, Intramuscular, Once, On Wed03/14/24 at 0945, For 1 dose Start: 03-14-2024 End: 03-14-2024 botulinum toxin Type A (BOTO X) injection 75 Units Start: 03-14-2024 End: 03-14-2024 inject 75 [IU] by intramuscular injection once 75 Units, Intramuscular, Once, On Wed03/14/24 at 0945, For 1 dose Start: 03-14-2024 End: 03-14-2024 botulinum toxin Type A (BOTO X) injection 600 Units Start: 03-14-2024 End: 03-14-2024 inject 600 [IU] by intramuscular injection once 600 Units, Intramuscular, Once, On Wed03/14/24 at 0945, For 1 dose Start: 03-14-2024 End: 03-14-2024 botulinum toxin Type A (BOTO X) injection 75 Units Start: 03-14-2024 End: 03-14-2024 inject 75 [IU] by intramuscular injection once 75 Units, Intramuscular, Once, On Wed03/14/24 at 0945, For 1 dose Start: 11-10-2023 End: 11-10-2023 botulinum toxin Type A (BOTO X) injection 600 Units Start: 11-10-2023 End: 11-10-2023 botulinum toxin Type A (BOTO X) injection 600 Units Start: 11-10-2023 End: 11-10-2023 botulinum toxin Type A (BOTO X) injection 25 Units Start: 11-10-2023 End: 11-10-2023 botulinum toxin Type A (BOTO X) injection 25 Units Start: 05-18-2023 End: 05-18-2023 botulinum toxin Type A (BOTO X) injection 0-100 Units Start: 11-03-2022 End: 11-04-2022 botulinum toxin Type A (BOTO X) injection 600 Units calcium chloride 0.0014 meq/ ml / potassium chloride 0.004 meq/ml / sodium chloride 0.103 meq/ml / sodium lactate 0.028 meq/ml injectable solution (6 sources) Start: 12-22-2021 End: 12-22-2021 lactated ringers IV solution Start: 03-21-2020 End: 03-22-2020 take 50 mL intravenous route every hour 50 mL/hr, Intravenous, Continuous, Starting Lenka 03/21/20 at 2045 Start: 10-21-2019 End: 10-23-2019 lactated Ringers infusion Start: 09-20-2019 End: 09-20-2019 1,000 mL, Intravenous, at 98 3.6 mL/hr, Once, 09/20/19 at 0945, For 1 dose use caution in patients with liver dysfunction Start: 09-20-2019 End: 09-20-2019 lactated Ringers infusion Start: 10-07-2018 End: 10-07-2018 lactated ringers bolus 1,000 mL cannabidioL (EPIDIOLEX) 100 mg/mL solution (1 source) Start: 02-13-2020 End: 02-14-2020 cannabidioL (EPIDIOLEX) 100 mg/mL solution Cannabidiol (Epidiolex) 100mg/ml oral solution (1 source) Start: 09-20-2019 End: 09-27-2019 3.2 mL, Tube, 2 times daily, First dose on Wed09/20/19 at 1400 Cannabidiol (EPIDIOLEX) is FDA approved for seizures. Drug Name: Epidiolex Form: Solution Dose: 3.2 Dose Units: mL Length of Therapy: Indefinite How soon needed? (normally 72 hrs needed to procure): 0-24 hrs Reason for Non-Formulary: Epilepsy medication. Patient with inpatient seizures. catheter (SAGE CATHETER) 14 Fr Misc (11 sources) End: 09-20-2019 catheter (SAGE CATHETER) 14 Fr Misc by Miscellaneous route . 0 09/20/2019 Discontinued (Error) catheter (SAGE CATHETER) 14 Fr Misc by Miscellaneous route . 0 Active cefepime 2000 mg injection (3 sources) Cephalosporin Antibacterial Start: 10-22-2019 End: 10-23-2019 take 2000 mg intravenous route every eight hours cefePIMe-dextrose (MAXIPIME) 2 gram/50 mL IVPB 2,000 mg Start: 10-21-2019 End: 10-21-2019 cefePIMe-dextrose (MAXIPIME) 2 gram/50 mL IVPB 2,000 mg Start: 11-28-2018 End: 11-28-2018 cefePIMe-dextrose (MAXIPIME) 2 gram/50 mL IVPB 2,000 mg cefePIMe (MAXIPIME) 1,000 mg in sodium chloride 0.9 % (NS) 50 mL IVPB (2 sources) Start: 09-22-2019 End: 09-27-2019 take 1000 mg intravenous route every eight hours cefePIMe (MAXIPIME) 1,000 mg in sodium chloride 0.9 % (NS) 50 mL IVPB Start: 09-20-2019 End: 09-21-2019 take 1000 mg intravenous route every twelve hours 1,000 mg, Intravenous, at 100 mL/hr, Every 12 hours, First dose on Wed09/20/19 at 0700 Indication: OTHER Indication: uti cefePIMe (MAXIPIME) 2000 mg in sodium chloride (NS) 0.9% 100 mL MBP (1 source) Start: 11-29-2018 End: 12-01-2018 take 2000 mg intravenous route every eight hours cefePIMe (MAXIPIME) 2000 mg in sodium chloride (NS) 0.9% 100 mL MBP cefTRIAXone 1000 mg injection (3 sources) Cephalosporin Antibacterial Start: 03-21-2020 End: 03-22-2020 cefTRIAXone (ROCEPHIN) IVPB 1 g (premix) Start: 09-19-2019 End: 09-19-2019 cefTRIAXone (ROCEPHIN) IVPB 1 g (premix) cholecalciferol 0.025 mg ora l tablet (20 sources) Vitamin D Start: 07-15-2022 End: 07-22-2022 2,000 Units, Tube, Daily, First dose on Wed07/15/22 at 0900 Start: 09-24-2020 End: 09-25-2020 2,000 Units, Tube, Daily, Fi rst dose on Wed09/24/20 at 0900 Start: 03-21-2020 End: 03-22-2020 2,000 Units, Tube, Daily, Fi rst dose on Wed03/21/20 at 2215 cholecalciferol, vitamin D3, 50 mcg (2,000 unit) cap Take 1 (one) capsule per G-tube every morning . Active cholecalciferol, vitamin D3, 50 mcg (2,000 unit) cap 1 (one) capsule by G-tube route every morning . Active cholecalciferol, vitamin D3, (VITAMIN D3) 2,000 unit cap 2,000 Units by G-tube route every morning. 0 Active cholecalciferol, vitamin D3, (VITAMIN D3) 2,000 unit cap 2,000 Units by G-tube route every morning. Active cholecalciferol, vitamin D3, (VITAMIN D3) 2,000 unit cap 2,000 Units by G-tube route every morning. Active ciprofloxacin 100 mg oral tablet (11 sources) Quinolone Antimicrobial End: 09-20-2019 take 5 tablets by mouth twice daily ciprofloxacin HCl (CIPRO) 100 MG tablet Take 500 mg by mouth 2 (two) times a day . 0 09/20/2019 Discontinued (Error) Ciprofloxacin (Cipro) 500 mg/5 mL suspension,microcap rekha recon (6 sources) Start: 04-05-2025 End: 05-03-2025 take 1 capsule by mouth every twelve hours Ciprofloxacin (Cipro) 500 mg/5 mL suspension,microca psule recon Discontinued 500 mg PO Q12H 280 28 0 April 05, 2025 12:00am May 02, 2025 12:00am May 03, 2025 12:06am Start: 04-05-2025 take 1 capsule by mo uth every twelve hours Ciprofloxacin (Cipro) 500 mg/5 mL suspension,microcapsule recon Active 500 mg PO Q12H 280 28 0 April 05, 2025 12:00am May 02, 2025 12:00am diphenhydrAMINE hydrochloride 25 mg oral tablet (4 sources) Histamine-1 Receptor Antagonist Start: 07-16-2022 End: 07-16-2022 diphenhydrAMINE (BENADRYL) tablet 12.5 mg Start: 07-16-2022 End: 07-20-2022 diphenhydrAMINE (BENADRYL) 1 2.5 mg/5 mL liquid 12.5 mg Start: 12-22-2021 End: 12-22-2021 diphenhydrAMINE (BENADRYL) i njection 12.5 mg Start: 11-29-2018 End: 11-29-2018 diphenhydrAMINE (BENADRYL) i njection 25 mg docusate sodium 50 mg / sennosides, care home 8.6 mg oral tablet (1 source) Start: 09-20-2019 End: 09-27-2019 senna-docusate (SENNA-S) 8.6-50 mg per tablet 1 tablet 0.4 ml enoxaparin sodium 100 mg/ml prefilled syringe (6 sources) Low Molecular Weight Heparin Start: 09-24-2020 End: 09-25-2020 inject 40 mg by subcutaneous injection once daily 40 mg, Subcutaneous, Daily, First dose on Wed09/24/20 at 0800 Administer in abdomen unless otherwise directed by prescriber. Notify physician if patient refuses. Indication: VTE Prophylaxis Start: 03-22-2020 End: 03-22-2020 inject 40 mg by subcutaneous injection once daily 40 mg, Subcutaneous, Daily, First dose on Wed03/22/20 at 0800 Administer in abdomen unless otherwise directed by prescriber. Notify physician if patient refuses. Indication: VTE Prophylaxis Start: 10-21-2019 End: 10-24-2019 inject 40 mg by subcutaneous injection once daily 40 mg, Subcutaneous, Daily, First dose on 10/21/19 at 1945 Administer in abdomen unless otherwise directed by prescriber. Notify physician if patient refuses. Indication: VTE Prophylaxis Start: 09-20-2019 End: 09-27-2019 inject 40 mg by subcutaneous injection once daily 40 mg, Subcutaneous, Daily, First dose on 09/20/19 at 0800 Administer in abdomen unless otherwise directed by prescriber. Notify physician if patient refuses. 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) TAKE 3.2 ML BY MOUTH TWICE DAILY 192 mL 5 12/01/2019 05/21/2020 Discontinued (Reorder) Start: 12-01-2019 take 3.2 mL by mouth twice daily Epidiolex 100 mg/mL Soln 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 08/14/2024 Discontinued (Patient's Request) 1 ml fentaNYL 0.05 mg/ml injection (3 sources) Opioid Agonist Start: 07-15-2022 End: 07-15-2022 25 mcg, Intravenous, Every 5 min PRN, Pain, Starting on Wed07/15/22 at 1841, For 4 doses, PACU (only) [] Do not give more than 100 mcg while in PACU. Start: 11-17-2021 End: 11-17-2021 12.5 mcg, Intravenous, Admin ister over 2 Minutes, EVERY 30 MINUTES NEEDED, 4 doses, Starting on Wed11/17/21 at 1601, Until Wed11/17/21 at 1829, Mild Pain, Recovery Start: 12-02-2018 End: 12-02-2018 25 mcg, Intravenous, Every 5 min PRN, Pain, Starting Wed12/02/18 at 1223, For 4 doses, PACU (only) [] Do not give more than 100 mcg while in PACU. flu vacc [id number] 6mos up(PF) (FLUZONE QUAD/FLULAVAL QUAD/FLUARIX QUAD) syringe 0.5 mL (1 source) Start: 09-22-2019 End: 09-27-2019 inject 0.5 mL by intramuscular injection every twenty-four hours as needed flu vacc [id number] 6mos up(PF) (FLUZONE QUAD/FLULAVAL QUAD/FLUARIX QUAD) syringe 0.5 mL flu vacc [id number] 6mos up(PF) (FLUZONE QUAD/FLULAVAL QUAD/FLUARIX QUAD) syringe 0.5 mL (1 source) Start: 08-13-2020 End: 08-13-2020 inject 0.5 mL by intramuscular injection every twenty-four hours as needed flu vacc [id number] 6mos up(PF) (FLUZONE QUAD/FLULAVAL QUAD/FLUARIX QUAD) syringe 0.5 mL gentamicin (GARAMYCIN) 220 mg in sodium chloride 0.9 % (NS) 105.5 mL IVPB (1 source) Start: 11-27-2020 End: 11-27-2020 gentamicin (GARAMYCIN) 220 mg in sodium chloride 0.9 % (NS) 105.5 mL IVPB 150 ml glucose 50 mg/ml injection (1 source) Start: 11-29-2018 End: 11-30-2018 dextrose 5 % infusion guaiFENesin 20 mg/ml oral solution (20 sources) Start: 07-15-2022 End: 07-22-2022 200 mg, Tube, 3 times daily PRN, cough, Starting on 07/15/22 at 0025 Start: 09-23-2020 End: 09-25-2020 200 mg, Tube, 3 times daily PRN, cough, Starting 09/23/20 at 2156 Start: 03-21-2020 End: 03-22-2020 200 mg, Tube, 3 times daily PRN, cough, Starting Lenka 03/21/20 at 1946 Start: 10-21-2019 End: 10-24-2019 take 200 mg by mouth three times daily as needed for cough 200 mg, Oral, 3 times daily PRN, cough, Starting 10/21/19 at 1843 Start: 09-20-2019 End: 09-27-2019 guaiFENesin (ROBITUSSIN) 100 mg/5 mL syrup 200 mg guaiFENesin (RIKKI ITUSSIN) 100 mg/5 mL syrup Take 10 mL (200 mg total) per G-tube 3 (three) times a day as needed for cough . Active guaiFENesin (RIKKI ITUSSIN) 100 mg/5 mL syrup 10 mL (200 mg total) by G-tube route 3 (three) times a day as needed for cough . Active guaifenesin (MUC INEX ORAL) Take by mouth 2 (two) times a day as needed Children's powder . Active guaifenesin (MUC INEX ORAL) Take by mouth 2 (two) times a day as needed Children's powder . 0 Active heparin (20 sources) Unfractionated Heparin, Anti-coagulant Start: 07-20-2022 End: 04-21-2023 heparin, porcine, PF, 100 unit/mL Syrg For Open Ended Midline/PICC/CVC/Port: Flush with 5ml heparin as final flush after each use, weekly if not used. Use 3ml for Peripheral IV . 100 mL 52 07/20/2022 04/21/2023 Discontinued (Therapy completed) Start: 07-20-2022 heparin, porci ne, PF, 100 unit/mL Syrg For Open Ended Midline/PICC/CVC/Port: Flush with 5ml heparin as final flush after each use, weekly if not used. Use 3ml for Peripheral IV . 100 mL 52 07/20/2022 Start: 07-20-2022 heparin, porci ne, PF, 100 unit/mL Syrg For Open Ended Midline/PICC/CVC/Port: Flush with 5ml heparin as final flush after each use, weekly if not used. Use 3ml for Peripheral IV . 100 mL 52 07/20/2022 Active Start: 02-12-2020 End: 02-14-2020 heparin (porcine) injection 5,000 Units 1 ml hyaluronidase, human recombinant 150 unt/ml injection (1 source) Endoglycosidase Start: 07-16-2022 End: 07-16-2022 hyaluronidase, human recomb. (HYLENEX) injection 150 Units 1 ml hydrALAZINE hydrochloride 20 mg/ml injection (1 source) Arteriolar Vasodilator Start: 12-22-2021 End: 12-22-2021 hydrALAZINE (APRESOLINE) injection 5 mg 0.5 ml HYDROmorphone hydrochloride 1 mg/ml prefilled syringe (2 sources) Opioid Agonist Start: 07-16-2022 End: 07-16-2022 HYDROmorphone (PF) (DILAUDID) injection 0.5 mg Start: 07-15-2022 End: 07-22-2022 take 0.5-1.5 mg intravenously every three hours as needed 0.5-1.5 mg, Intravenous, Every 3 hours PRN, moderate to severe pain, Starting on Wed07/15/22 at 2100 [] Initiate with 1 mg every 3 hours prn moderate to severe pain. [] For unrelieved pain, may give additional 0.5 mg within 30 minutes of initial dose. [] If pain is RELIEVED after repeat dose, change to 1.5 mg every 3 hours prn moderate to severe pain. [] If pain is UNrelieved after repeat dose or patient requires dose reduction, call physician. [] May use IV for breakthrough or if unable to tolerate oral route. HYDROmorphone (DILAUDID) injection 0.2 mg (1 source) Start: 12-22-2021 End: 12-22-2021 HYDROmorphone (DILAUDID) injection 0.2 mg implantable pump 1 each (6 sources) Start: 07-16-2022 End: 07-22-2022 implantable pump 1 each Start: 09-24-2020 End: 09-25-2020 implantable pump 1 each Start: 03-21-2020 End: 03-22-2020 implantable pump 1 each Start: 02-13-2020 End: 02-14-2020 implantable pump 1 each Start: 10-22-2019 End: 10-24-2019 implantable pump 1 each Start: 11-29-2018 End: 12-05-2018 implantable pump 1 each iopamidoL (ISOVUE-370) 370 mg iodine /mL (76 %) injection 75 mL (1 source) Start: 07-16-2022 End: 07-16-2022 iopamidoL (ISOVUE-370) 370 mg iodine /mL (76 %) injection 75 mL ipratropium bromide 0.2 mg/ml inhalation solution (20 sources) Anticholinergic Start: 07-15-2022 End: 07-22-2022 take 0.5 mg by inhalation every four hours as needed 0.5 mg, Inhalation, Every 4 hours PRN (RT), shortness of breath, Starting on Wed07/15/22 at 0025 Start: 03-21-2020 End: 03-22-2020 take 0.5 mg by inhalation twice daily 0.5 mg, Inhalation, 2 times daily (RT), First dose on Wed03/21/20 at 2030 Start: 01-11-2020 End: 01-15-2021 ipratropium (ATROVENT) 0.02 % nebulizer solution Indications: Restrictive lung disease due to kyphoscoliosis , Aspiration, chronic pulmonary, initial encounter inhale contents of 1 vial in nebulizer twice a day IF CONGESTED OR WHEEZING OR LABORED CAN TAKE UP TO FOUR TIMES DAILY . 300 mL 01/15/2021 Active Start: 11-29-2018 End: 12-05-2018 take 0.5 mg by inhalation twice daily 0.5 mg, Inhalation, 2 times daily, First dose on Wed11/29/18 at 0900 Start: 04-14-2017 End: 12-25-2019 ipratropium (ATROVENT) 0.02 % nebulizer solution Indications: Restrictive lung disease due to kyphoscoliosis , Aspiration, chronic pulmonary, initial encounter Do one breathing treatment twice daily. If she is congested or wheezing or labored, she can do this 4 times daily.. 300 mL 01/12/2018 12/25/2019 Discontinued (Reorder (Suppress CancelRx Message to Pharmacy)) 1 ml ketorolac tromethamine 30 mg/ml injection (1 source) Nonsteroidal Anti-inflammatory Drug, Cyclooxygenase Inhibitor Start: 10-07-2018 End: 10-07-2018 ketorolac (TORADOL) injection 15 mg labetalol hydrochloride 5 mg/ml injectable solution (1 source) beta-Adrenergic Too Start: 12-22-2021 End: 12-22-2021 labetalol (NORMODYNE) injection 5 mg levalbuterol 2.5 mg/ml inhalant solution (1 source) beta2-Adrenergic Agonist Start: 09-20-2019 End: 09-27-2019 1.25 mg, Nebulization, 3 times daily (RT), First dose on Wed09/20/19 at 0800 QS to total volume of 3ml with NS 10 ml lidocaine hydrochloride 10 mg/ml injection (4 sources) Antiarrhythmic, Amide Local Anesthetic Start: 07-20-2022 End: 07-22-2022 take 1 mL intradermal route every twenty-four hours as needed 1 mL, Intradermal, Once as needed, For Midline placement, if patient has no known Lidocaine allergy., Starting on Wed07/20/22 at 1428, For 1 dose Start: 08-13-2020 End: 08-13-2020 take 1 mL intradermal route every twenty-four hours as needed lidocaine 10 mg/mL (1 %) injection 1 mL Start: 03-22-2020 End: 03-22-2020 take 1 mL intradermal route every twenty-four hours as needed lidocaine 1% (PF) (XYLOCAINE-MPF) 10 mg/mL (1 %) injection 1 mL Start: 05-04-2019 End: 05-04-2019 take 1 mL intradermal route every twenty-four hours as needed lidocaine 1% (XYLOCAINE) 10 mg/mL (1 %) injection 1 mL lidocaine 1% buffered in sodium bicarbonate 1-8.4 % injection SOSY 1 mL (1 source) Start: 12-22-2021 End: 12-22-2021 lidocaine 1% buffered in sodium bicarbonate 1-8.4 % injection SOSY 1 mL 1 ml LORazepam 2 mg/ml injection (1 source) Benzodiazepine Start: 05-04-2019 End: 05-04-2019 LORazepam (ATIVAN) injection 1 mg magnesium hydroxide 80 mg/ml oral suspension (1 source) Start: 03-21-2020 End: 03-22-2020 take 2400 mg by mouth once daily as needed for constipation 2,400 mg (30 mL), Oral, Daily PRN, constipation, For constipation., Starting [facility] 03/21/20 at 1951 meropenem 500 mg injection (20 sources) Penem Antibacterial Start: 08-13-2020 End: 08-13-2020 meropenem (MERREM) 500 mg in sodium chloride (NS) 0.9% 50 mL (premix) End: 01-14-2022 meropenem (MERREM) 50 mg/ml injection Infuse 0.5 g into a venous catheter . 0 01/14/2022 Discontinued (Prescriber Discontinued) meropenem inject ion 0.5 g by Intravenous route. 0 Active End: 09-20-2019 take 1 g intravenous route every eight hours meropenem-0.9% sodium chloride (MERREM) 500 mg/50 mL Infuse 1 g into a venous catheter every 8 (eight) hours . 0 09/20/2019 Discontinued (Error) metoprolol tartrate 25 mg oral tablet (20 sources) beta-Adrenergic Too Start: 09-23-2020 End: 09-25-2020 12.5 mg, Tube, 2 times daily, First dose on 09/23/20 at 2245 Hold for SBP <90 or HR <60 Start: 02-12-2020 End: 02-14-2020 take 5 mg intravenous route every six hours as needed metoprolol (LOPRESSOR) injection 5 mg Start: 10-21-2019 End: 10-24-2019 take 12.5 mg by mouth once daily 12.5 mg, Oral, Daily, First dose on 10/21/19 at 2100 Please hold for SBP<100 or HR<55. DO NOT CRUSH OR CHEW. Start: 09-21-2019 End: 09-27-2019 take 12.5 mg by mouth once daily 12.5 mg, Oral, Daily, First dose (after last reorder) on Wed09/21/19 at 1100 DO NOT CRUSH OR CHEW. Start: 11-29-2018 End: 12-05-2018 take 12.5 mg by mouth once daily 12.5 mg, Oral, Daily, First dose on Wed11/29/18 at 0900 Hold for HR <60 or systolic <100 mmHg DO NOT CRUSH OR CHEW. End: 01-13-2021 metoprolol succinate (TOPROL -XL) 25 MG 24 hr tablet 12.5 mg daily G-Tube . 0 01/13/2021 Discontinued (Discontinued by another clinician) montelukast 10 mg oral tablet (20 sources) Leukotriene Receptor Antagonist Start: 07-15-2022 End: 07-22-2022 10 mg, Tube, Daily, First dose on Wed07/15/22 at 0900 Start: 09-24-2020 End: 09-25-2020 10 mg, Tube, Daily, First do se on Wed09/24/20 at 0900 Start: 08-14-2020 End: 08-13-2020 take 10 mg by mouth once daily 10 mg, Oral, Daily, Fir st dose on Wed08/14/20 at 0900 Start: 03-21-2020 End: 03-22-2020 10 mg, Tube, Daily, First do se on Wed03/21/20 at 2045 Start: 02-13-2020 End: 02-14-2020 10 mg, Tube, Daily, First do se on Wed02/13/20 at 0900 Start: 12-16-2019 montelukast (S INGULAIR) 10 mg tablet 1 (one) tablet (10 mg total) by Per G Tube route daily . 12/16/2019 Active Start: 12-16-2019 take 1 tablet by kena th once daily montelukast (SINGULAIR) 10 mg tablet Take 10 mg by mouth daily . 0 12/16/2019 Active morphine sulfate 20 mg/ml oral solution (18 sources) Opioid Agonist Start: 09-20-2019 End: 09-27-2019 2.5 mg, Tube, 2 times daily PRN, moderate to severe pain, Starting Wed09/20/19 at 1117 Start: 12-06-2018 End: 09-20-2019 take 0.25 mL intravenous route twice daily as needed for pain morphine concentrated solution 20 mg/mL Indications: Decubitus ulcer of ischial area, right, stage IV (HCC) Give 0.25 mL (5 mg total) by G-tube route 2 (two) times a day as needed for pain. 30 mL 0 12/06/2018 09/20/2019 Discontinued (Error) Start: 12-05-2018 End: 12-12-2018 morphine 2 mg/ml solution Indications: Decubitus ulcer of ischial area, right, stage IV (HCC) 2.5 mL (5 mg total) by Per G Tube route 2 (two) times a day as needed for pain . 60 mL 0 12/05/2018 12/12/2018 Active Start: 11-29-2018 End: 12-05-2018 morphine 2 mg/ml oral soluti on 5 mg End: 10-21-2019 take 5 mg by mouth twice daily as needed for pain morphine 20 mg/5 mL (4 mg/mL) solution Take 5 mg by mouth 2 (two) times a day as needed for pain . 0 10/21/2019 Discontinued (Error) mulitvitamins w/ minerals (CENTRUM) liquid 15 mL (1 source) Start: 09-24-2020 End: 09-25-2020 15 mL, Tube, Every morning, First dose on Wed09/24/20 at 0900 multivitamin (THERAGRAN) per tablet 1 tablet (1 source) Start: 11-29-2018 End: 12-05-2018 take 1 tablet by mouth once daily 1 tablet, Oral, Daily, First dose on Wed11/29/18 at 0900 multivitamin liquid (3 sources) End: 02-14-2020 multivitamin liquid 1 tablet by G-tube route every morning . 0 02/14/2020 Discontinued (Error) naloxone (NARCAN) injection 0.1 mg (3 sources) Start: 07-15-2022 End: 07-22-2022 naloxone (NARCAN) injection 0.1 mg Start: 09-19-2019 End: 09-27-2019 naloxone (NARCAN) injection 0.1 mg Start: 11-29-2018 End: 12-05-2018 naloxone (NARCAN) injection 0.1 mg Nonformulary Request Form (1 source) Start: 03-21-2020 End: 03-22-2020 Tube, 2 times daily, First dose on [place] 03/21/20 at 2100 Mother has supply Drug Name: Epidiolex 100 mg/ml Form: Solution Dose: 3.2 Dose Units: mL Length of Therapy: Indefinite How soon needed? (normally 72 hrs needed to procure): 0-24 hrs Reason for Non-Formulary: patient home medication norepinephrine (LEVOPHED) 4 mg in sodium chloride 0.9% (NS) 250 mL infusion (1 source) Start: 07-16-2022 End: 07-17-2022 norepinephrine (LEVOPHED) 4 mg in sodium chloride 0.9% (NS) 250 mL infusion norEPINEPHrine (LEVOPHED) 4 mg/250 mL (16 mcg/mL) infusion Soln - ADS Override Pull (1 source) Start: 07-16-2022 End: 07-16-2022 norEPINEPHrine (LEVOPHED) 4 mg/250 mL (16 mcg/mL) infusion Soln - ADS Override Pull 2 ml ondansetron 2 mg/ml injection (20 sources) Serotonin-3 Receptor Antagonist Start: 12-22-2021 End: 12-22-2021 ondansetron 4mg/2ml (ZOFRAN) injection 4 mg Start: 10-17-2021 End: 04-21-2023 take 4 mg intragastric route every eight hours as needed for nausea ondansetron (ZOFRAN) 4 mg/5 mL solution 5 mL (4 mg total) by Per G Tube route every 8 (eight) hours as needed for nausea . 50 mL 0 10/17/2021 04/21/2023 Discontinued (Discontinued by another clinician) Start: 03-21-2020 End: 03-22-2020 take 4 mg intravenous route every six hours as needed 4 mg, Intravenous, Every 6 hours PRN, nausea, vomiting, Starting [facility] 03/21/20 at 1951 Start: 02-12-2020 End: 02-14-2020 take 4 mg intravenous route every six hours as needed ondansetron (ZOFRAN) injection 4 mg Start: 09-19-2019 End: 09-19-2019 ondansetron (ZOFRAN) injecti on 4 mg ondansetron (ZOFRAN-ODT) disintegrating tablet 4 mg (3 sources) Start: 07-15-2022 End: 07-22-2022 take 1 tablet by mouth every six hours as needed for nausea and vomiting ondansetron (ZOFRAN-ODT) disintegrating tablet 4 mg Start: 07-15-2022 End: 07-22-2022 take 1 tablet by mouth every six hours as needed for nausea and vomiting ondansetron (ZOFRAN-ODT) disintegrating tablet 4 mg Start: 09-23-2020 End: 09-25-2020 take 1 tablet by mouth every six hours as needed ondansetron (ZOFRAN-ODT) disintegrating tablet 4 mg oxyCODONE hydrochloride 1 mg/ml oral solution (1 source) Opioid Agonist Start: 07-16-2022 End: 07-22-2022 oxyCODONE (ROXICODONE) solution 5 mg pantoprazole 40 mg injection (7 sources) Proton Pump Inhibitor Start: 07-15-2022 End: 07-22-2022 40 mg, Intravenous, Daily, First dose on Wed07/15/22 at 0900 Dilute each vial with 10 mL of 0.9% NaCl. Start: 08-14-2020 End: 08-13-2020 40 mg, Tube, Daily, First do se on Wed08/14/20 at 0900 Suspend in at least 10 mL apple juice and follow with at least 2 more 10 mL apple juice rinses. See Lexicomp for full administration instructions. NG tube must be 16French or larger. Start: 02-13-2020 End: 02-14-2020 pantoprazole (PROTONIX) gran ules GrPS 40 mg Start: 10-21-2019 End: 10-24-2019 pantoprazole (PROTONIX) gran ules GrPS 40 mg Start: 09-20-2019 End: 09-27-2019 pantoprazole (PROTONIX) gran ules GrPS 40 mg Start: 11-30-2018 End: 12-05-2018 pantoprazole (PROTONIX) gran ules GrPS 40 mg Start: 11-29-2018 End: 11-30-2018 40 mg, Other, Daily, First d ose on Wed11/29/18 at 0900 DO NOT CRUSH OR CHEW. piperacillin 4000 mg / tazobactam 500 mg injection (18 sources) Penicillin-class Antibacterial, beta Lactamase Inhibitor Start: 07-20-2022 End: 07-23-2022 take 4.5 g intravenously every eight hours piperacillin-tazobactam (ZOSYN) IV (Outpatient Therapy) Indications: Pseudomonas wound infection Infuse 4.5 (four and a half) g into a venous catheter every 8 (eight) hours End: 07/23/22 9 each 0 07/20/2022 07/23/2022 Start: 07-16-2022 End: 07-22-2022 take 3.375 g intravenously every eight hours piperacillin-tazobactam (ZOSYN) IVPB 3.375 g (premix) Start: 07-16-2022 End: 07-16-2022 piperacillin-tazobactam (ZOS YN) IVPB 4.5 g (premix) Start: 02-12-2020 End: 02-14-2020 take 3.375 g intravenous route every eight hours Start: 02-12-2020 End: 02-12-2020 piperacillin-tazobactam (ZOS YN) IVPB 4.5 g (premix) Start: 09-21-2019 End: 09-22-2019 take 3.375 g intravenous route every eight hours piperacillin-tazobactam (ZOSYN) IVPB 3.375 g (premix) potassium bicarbonate 25 meq effervescent oral tablet (1 source) Start: 02-13-2020 End: 02-13-2020 potassium bicarbonate (K-LYTE) 25 MEQ disintegrating tablet 100 mEq 100 ml potassium chloride 0.2 meq/ml injection (7 sources) Start: 07-17-2022 End: 07-17-2022 take 20 mEq intravenously every two hours potassium chloride 20 mEq in 100 mL IVPB Start: 07-16-2022 End: 07-16-2022 potassium chloride 40 mEq in 100 mL IVPB Start: 02-14-2020 End: 02-14-2020 potassium chloride (KAYCIEL) 20 mEq/15 mL solution 40 mEq Start: 10-24-2019 End: 10-24-2019 potassium chloride (KAYCIEL) 20 mEq/15 mL solution 40 mEq Start: 09-24-2019 End: 09-24-2019 potassium chloride (KAYCIEL) 20 mEq/15 mL solution 40 mEq Start: 09-22-2019 End: 09-22-2019 potassium chloride (KAYCIEL) 20 mEq/15 mL solution 40 mEq Start: 09-21-2019 End: 09-21-2019 potassium chloride (KAYCIEL) 20 mEq/15 mL solution 20 mEq 125 ml sodium chloride 9 mg/ml prefilled syringe (20 sources) Start: 07-20-2022 End: 07-22-2022 10 mL, Intracatheter, Every 8 hours scheduled, First dose on Wed07/20/22 at 1515 Flush Midline when not in use. Start: 07-20-2022 End: 04-21-2023 sodium chloride, PF, (NS) in jection Midline/PICC/CVC/Port: Flush with 10ml pre/post use, weekly if not used, 20ml after lab draw/TPN. Use 5ml for Peripheral IV pre/post use . 100 mL 52 07/20/2022 04/21/2023 Discontinued (Discontinued by another clinician) Start: 07-15-2022 End: 07-18-2022 sodium chloride 0.9% (NS) Start: 07-15-2022 End: 07-22-2022 sodium chloride (PF) (NS) fl ush 5 mL Start: 07-15-2022 End: 07-16-2022 take 50 mL intravenously every hour 50 mL/hr, Intravenous, Continuous, Starting on Wed07/15/22 at 0030 Start: 11-27-2020 End: 11-27-2020 sodium chloride (PF) (NS) fl ush 10 mL Start: 11-27-2020 End: 11-27-2020 sodium chloride 0.9% (NS) Start: 11-27-2020 End: 11-27-2020 sodium chloride (PF) (NS) fl ush 5 mL Start: 08-13-2020 End: 08-13-2020 sodium chloride (PF) (NS) fl ush 10 mL Start: 08-13-2020 End: 08-13-2020 sodium chloride 0.9% (NS) adrian leno 1,000 mL Start: 03-22-2020 End: 03-22-2020 sodium chloride (PF) (NS) fl ush 10 mL Start: 03-22-2020 End: 03-22-2020 sodium chloride (PF) (NS) fl ush 10-20 mL Start: 03-21-2020 End: 03-22-2020 sodium chloride (PF) (NS) fl ush 5 mL Start: 02-12-2020 End: 02-13-2020 sodium chloride 0.9% (NS) adrian leno 1,000 mL Start: 10-21-2019 End: 10-21-2019 sodium chloride 0.9% (NS) adrian leno 1,128 mL Start: 10-21-2019 End: 10-24-2019 sodium chloride (PF) (NS) fl ush 5 mL Start: 09-20-2019 End: 09-27-2019 sodium chloride (PF) (NS) fl ush 5 mL Start: 09-19-2019 End: 09-20-2019 sodium chloride 0.9% (NS) adrian leno 500 mL Start: 09-19-2019 End: 09-27-2019 sodium chloride (PF) (NS) fl ush 5 mL Start: 05-04-2019 End: 05-04-2019 sodium chloride (PF) (NS) fl ush 10 mL Start: 05-04-2019 End: 05-04-2019 sodium chloride (PF) (NS) fl ush 10-20 mL Start: 05-04-2019 End: 05-04-2019 sodium chloride (PF) (NS) fl ush 5 mL Start: 11-28-2018 End: 11-28-2018 sodium chloride 0.9% (NS) adrian leno 1,000 mL sulfamethoxazole 800 mg / trimethoprim 160 mg oral tablet (16 sources) Dihydrofolate Reductase Inhibitor Antibacterial, Sulfonamide Antimicrobial Start: 04-07-2024 End: 08-14-2024 take 1 tablet by mouth twice daily sulfamethoxazole-trimethoprim (BACTRIM DS,SEPTRA DS) 800-160 mg per tablet Take 1 (one) tablet by mouth 2 (two) times a day . 04/07/2024 08/14/2024 Discontinued (Patient's Request) Start: 10-05-2022 End: 04-21-2023 take 1 tablet by mouth twice daily sulfamethoxazole-trimethoprim (BACTRIM DS,SEPTRA DS) 800-160 mg per tablet Take 1 (one) tablet by mouth 2 (two) times a day . 0 10/05/2022 04/21/2023 Discontinued (Discontinued by another clinician) take 10 mL by mouth every twelve hours sulfamethoxazole-trimethoprim 200-40 MG/ 5ML oral suspension Take 10 mL by mouth every 12 hours. Weight-based dosing is based on trimethoprim component. 0 Active technetium (Tc-99m) exametazime (CERETEC) injection 15 millicurie (1 source) Start: 05-22-2019 End: 05-22-2019 technetium (Tc-99m) exametazime (CERETEC) injection 15 millicurie 200 ml vancomycin 5 mg/ml injection (2 sources) Glycopeptide Antibacterial Start: 10-21-2019 End: 10-21-2019 vancomycin (VANCOCIN) IVPB 1000 mg (premix) Start: 11-28-2018 End: 11-28-2018 vancomycin (VANCOCIN) IVPB 1 000 mg (premix) vancomycin (VANCOCIN) 750 mg in sodium chloride 0.9 % (NS) 250 mL IVPB (8 sources) Start: 07-17-2022 End: 07-17-2022 take 750 mg intravenously every twelve hours vancomycin (VANCOCIN) 750 mg in sodium chloride 0.9 % (NS) 250 mL IVPB Start: 07-16-2022 End: 07-16-2022 take 750 mg intravenously every eight hours vancomycin (VANCOCIN) 750 mg in sodium chloride 0.9 % (NS) 250 mL IVPB Start: 07-15-2022 End: 07-16-2022 take 750 mg intravenously every eight hours vancomycin (VANCOCIN) 750 mg in sodium chloride 0.9 % (NS) 250 mL IVPB Start: 02-13-2020 End: 02-13-2020 take 750 mg intravenous route every twelve hours vancomycin (VANCOCIN) 750 mg in sodium chloride 0.9 % (NS) 250 mL IVPB Start: 02-12-2020 End: 02-12-2020 vancomycin (VANCOCIN) 750 mg in sodium chloride 0.9 % (NS) 250 mL IVPB Start: 09-22-2019 End: 09-24-2019 take 750 mg intravenous route every twelve hours vancomycin (VANCOCIN) 750 mg in sodium chloride 0.9 % (NS) 250 mL IVPB Start: 09-20-2019 End: 09-20-2019 take 750 mg intravenous route every twelve hours vancomycin (VANCOCIN) 750 mg in sodium chloride 0.9 % (NS) 250 mL IVPB Start: 11-29-2018 End: 11-30-2018 take 750 mg intravenous route every twelve hours vancomycin (VANCOCIN) 750 mg in sodium chloride 0.9 % (NS) 250 mL IVPB vancomycin (VANCOCIN) 850 mg in sodium chloride 0.9 % (NS) 250 mL IVPB (1 source) Start: 11-30-2018 End: 12-01-2018 take 850 mg intravenous route every twelve hours vancomycin (VANCOCIN) 850 mg in sodium chloride 0.9 % (NS) 250 mL IVPB whey protein isolate (Beneprotein) 6 gram-25 kcal/7 gram PwPk (5 sources) Start: 10-24-2019 End: 02-14-2020 whey protein isolate (Beneprotein) 6 gram-25 kcal/7 gram PwPk Use 1 packet twice a day w/ 60 mL of water. After feeding flush line with 60 mL's water. Use in combination with Replete Tube feeds . 75 each 2 10/24/2019 02/14/2020 Discontinued (Error) Start: 10-24-2019 whey protein i solate (Beneprotein) 6 gram-25 kcal/7 gram PwPk Use 1 packet twice a day w/ 60 mL of water. After feeding flush line with 60 mL's water. Use in combination with Replete Tube feeds . 75 each 2 10/24/2019 Active whey protein isolate 6 gram-25 kcal/7 gram Powd (5 sources) End: 08-13-2020 take 1 dose by mouth once daily whey protein isolate 6 gram-25 kcal/7 gram Powd Take 1 packet by mouth daily . 0 08/13/2020 Discontinued take 1 dose by mouth once daily whey protein isolate 6 gram-25 kcal/7 gram Powd Take 1 packet by mouth daily . 0 Active Problems Active Problems Problem Classification Problem Date Documented Da te Episodic/Chronic Administrative/social admission (3 sources) Other specified counseling; Translations: [Other specified counseling] Onset: 07-21-2024 Episodic Bacterial infection; unspecified site (20 sources) Bacteremia; Translations: [Bacteremia] Onset: 01-19-2022 01-19-2022 Episodic Chronic ulcer of skin (20 sources) Pressure ulcer of buttock; Translations: [Pressure ulcer of sacral region] Onset: 12-01-2018 12-01-2018 Chronic Coma; stupor; and brain damage (2 sources) Anoxic encephalopathy; Translations: [Anoxic brain damage, not elsewhere classified] Onset: 02-16-2019 02-16-2019 Chronic Complication of device; implant or graft (20 sources) Blocked catheter; Translations: [Pain finding at anatomical site] Onset: 06-26-2021 Episodic Complications of surgical procedures or medical care (5 sources) Malfunction of gastrostomy tube; Translations: [Gastrostomy malfunction] Onset: 03-06-2025 Episodic Deficiency and other anemia (14 sources) Anemia; Translations: [Anemia, unspecified] 03-14-2025 Episodic Deficiency and other anemia (2 sources) Other iron deficiency anemias; Translations: [Other iron deficiency anemias] Onset: 05-14-2025 Episodic Developmental disorders (2 sources) Cognitive developmental delay; Translations: [Developmental disorder of scholastic skills, unspecified] Onset: 02-16-2019 02-16-2019 Chronic Epilepsy; convulsions (20 sources) Symptomatic generalized epilepsy; 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] Onset: 12-16-2005 11-22-2016 Chronic Epilepsy; convulsions (5 sources) Seizure; Translations: [Unspecified convulsions] Onset: 07-20-2022 Episodic Esophageal disorders (20 sources) Gastro-esophageal reflux disease with esophagitis; Translations: [Gastroesophageal reflux disease with esophagitis] Onset: 07-19-2002 05-19-2016 Chronic Genitourinary symptoms and ill-defined conditions (20 sources) Urinary incontinence; Translations: [Other specified urinary incontinence] Onset: 05-14-2025 Chronic Infective arthritis and osteomyelitis (except that caused by tuberculosis or sexually transmitted disease) (1 source) Osteomyelitis, unspecified; Translations: [Osteomyelitis, unspecified] Onset: 05-16-2025 Chronic Mood disorders (1 source) Disturbance in mood; Translations: [Emotional lability] 01-19-2024 Episodic Mycoses (1 source) Candidiasis of skin and nail; Translations: [CANDIDIASIS OF SKIN AND NAIL] Onset: 03-19-2025 Episodic Nutritional deficiencies (20 sources) Undernutrition; Translations: [Unspecified protein-calorie malnutrition] Onset: 05-14-2025 03-14-2025 Chronic Other aftercare (1 source) Wound finding; Translations: [Encounter for other specified aftercare] Episodic Other aftercare (1 source) [employer] (current) use of antibiotics; 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] Onset: 03-19-2025 Episodic Other congenital anomalies (20 sources) Congenital deformity of spine; Translations: [Congenital deformity of spine] Onset: 07-02-2009 05-19-2016 Chronic Other connective tissue disease (1 source) Spasm; Translations: [Other muscle spasm] 11-02-2022 Episodic Other connective tissue disease (4 sources) Cramp and spasm; Translations: [Cramp and spasm] Onset: 07-27-2016 Episodic Other connective tissue disease (1 source) Muscle weakness (generalized); Translations: [MUSCLE WEAKNESS GENERALIZED] Onset: 03-19-2025 Episodic Other gastrointestinal disorders (20 sources) H/O: gastrostomy; Translations: [S/P percutaneous endoscopic gastrostomy (PEG) tube placement (HCC)] Onset: 2014 11-22-2016 Chronic Other gastrointestinal disorders (20 sources) History of placement of gastrostomy tube; Translations: [Gastrostomy status] Onset: 2014 11-22-2016 Chronic Other gastrointestinal disorders (14 sources) 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; Translations: [Malabsorption due to intolerance, not elsewhere classified] 03-14-2025 Chronic Other gastrointestinal disorders (14 sources) Celiac disease; Translations: [Celiac disease] 03-14-2025 Chronic Other gastrointestinal disorders (1 source) Gastrostomy status; Translations: [GASTROSTOMY STATUS] Onset: 01-10-2025 Chronic Other gastrointestinal disorders (2 sources) Celiac disease; Translations: [Celiac disease] Onset: 05-14-2025 Chronic Other gastrointestinal disorders (2 sources) Malabsorption due to intolerance, not elsewhere classified; Translations: [Malabsorption due to intolerance, not elsewhere classified] Onset: 05-14-2025 Chronic Other gastrointestinal disorders (20 sources) Incontinence of feces; Translations: [Full incontinence of feces] Episodic Other gastrointestinal disorders (3 sources) Full incontinence of feces; Translations: [FULL INCONTINENCE OF FECES] Onset: 03-19-2025 Episodic Other hereditary and degenerative nervous system conditions (2 sources) Isolated cervical dystonia; 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 Other infections; including parasitic (3 sources) Local infection of wound; Translations: [Wound infection] Episodic Other injuries and conditions due to external causes (20 sources) Pulmonary aspiration ; Translations: [Unspecified foreign body in respiratory tract, part unspecified causing other injury, initial encounter] 04-14-2017 Episodic Other injuries and conditions due to external causes (2 sources) Impaired wound healing; Translations: [Wound healing, delayed] Episodic Other injuries and conditions due to external causes (1 source) Other injury of unspecified body region, initial encounter; Translations: [Other injury of unspecified body region, initial encounter] Onset: 04-10-2025 Episodic Other lower respiratory disease (20 sources) Restrictive lung disease due to kyphoscoliosis; Translations: [Hypoxia] Onset: 12-22-2016 04-14-2017 Episodic Other nervous system disorders (20 sources) Disorder of brain; Translations: [Difficulty in walking, not elsewhere classified] Onset: 05-24-2015 11-22-2016 Chronic Other nervous system disorders (2 sources) Walking disability; Translations: [Difficulty walking] Onset: 05-24-2015 06-07-2015 Chronic Other nervous system disorders (20 sources) Difficulty walking; Translations: [Difficulty in walking, not elsewhere classified] Onset: 05-24-2015 06-07-2015 Chronic Other nervous system disorders (4 sources) Encephalopathy, unspecified; Translations: [Encephalopathy, unspecified] Onset: 04-21-2024 Chronic Other nervous system disorders (20 sources) Difficulty walking; Translations: [Difficulty walking] Onset: 05-24-2015 06-07-2015 Other non-traumatic joint disorders (10 sources) Difficulty in walking, not elsewhere classified; Translations: [Walking disability] Onset: 05-24-2015 06-07-2015 Chronic Other screening for suspected conditions (not mental disorders or infectious disease) (3 sources) Other specified abnormal findings of blood chemistry; Translations: [OTH SPEC ABNORMAL FINDINGS BLD CHEM] Onset: 12-28-2024 Episodic Other upper respiratory disease (1 source) Tracheostomy status; Translations: [TRACHEOSTOMY STATUS] Onset: 01-10-2025 Chronic Other upper respiratory disease (3 sources) Encounter for attention to tracheostomy; Translations: [ENC FOR ATTENTION TRACHEOSTOMY] Onset: 07-06-2024 Chronic Other upper respiratory infections (1 source) Acute sinusitis; Translations: [Acute sinusitis, recurrence not specified, unspecified location] Episodic Paralysis (20 sources) Spastic cerebral palsy; 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] Onset: 07-11-2002 11-22-2016 Chronic Residual codes; unclassified (1 source) Presence of other specified functional implants; Translations: [PRESENCE OTHER SPEC FUNC IMPLANTS] Onset: 03-19-2025 Chronic Residual codes; unclassified (1 source) Past history of procedure; Translations: [S/P PICC central line placement] Episodic Residual codes; unclassified (1 source) Device in situ; Translations: [Presence of other specified devices] Episodic Residual codes; unclassified (1 source) Pain; Translations: [Pain, unspecified] 04-05-2024 Episodic Residual codes; unclassified (1 source) Pain, unspecified; Translations: [Pain, unspecified] Onset: 08-12-2018 Respiratory failure; insufficiency; arrest (20 sources) Vfmrk-st-dewrvgs respiratory failure; Translations: [Chronic respiratory failure] Onset: 05-14-2016 11-22-2016 Chronic Respiratory failure; insufficiency; arrest (adult) (20 sources) Acute on chronic hypoxemic and hypercapnic respiratory failure; Translations: [Acute on chronic respiratory failure with hypoxia and hypercapnia] Onset: 05-14-2016 11-22-2016 Skin and subcutaneous tissue infections (1 source) Local infection of the skin and subcutaneous tissue, unspecified; Translations: [LOCAL INFECT SKIN SUBQ TISSUE UNS] Onset: 03-19-2025 Episodic Unclassified (8 sources) Finding of sacral region; Translations: [Sacral wound, initial encounter] Onset: 08-13-2020 08-13-2020 Unclassified (1 source) Patient encounter status; Translations: [Medication management] Unclassified (10 sources) COVID-19; Translations: [COVID-19] Onset: 09-23-2020 09-23-2020 Unclassified (2 sources) Procedure Onset: 03-14-2024 Unclassified (1 source) ENCOUNT FOR SCREENING FOR COVID-19; Translations: [ENCOUNT FOR SCREENING FOR COVID-19] Onset: 07-21-2024 Past or Other Problems Problem Classification Problem Date Documented Da te Episodic/Chronic Allergic reactions (1 source) Allergy status to penicillin; Translations: [ALLERGY STATUS TO PENICILLIN] Onset: 07-21-2024 Episodic Aspiration pneumonitis; food/vomitus (20 sources) Aspiration pneumonia; Translations: [Pneumonitis due to inhalation of food and vomit] Onset: 02-12-2020 Resolved: 11-26-2023 02-12-2020 Episodic Calculus of urinary tract (3 sources) Calculus of kidney; Translations: [CALCULUS OF KIDNEY] Onset: 01-29-2025 Episodic Cardiac dysrhythmias (20 sources) Tachycardia; Translations: [Tachycardia, unspecified] Onset: 07-26-2017 07-26-2017 Episodic Deficiency and other anemia (1 source) Anemia, unspecified; Translations: [ANEMIA UNSPECIFIED] Onset: 01-10-2025 Episodic Fever of unknown origin (20 sources) Fever; Translations: [Fever, unspecified] Onset: 07-30-2016 08-02-2016 Episodic Fluid and electrolyte disorders (7 sources) Hypernatremia; Translations: [Hyperosmolality and hypernatremia] Onset: 04-21-2024 Episodic Genitourinary symptoms and ill-defined conditions (4 sources) Urinary catheter in situ; Translations: [Personal history of urinary (tract) infections] Onset: 01-10-2025 Episodic Mood disorders (7 sources) Mood disorders Onset: 05-08-2024 05-08-2024 Open wounds of head; neck; and trunk (20 sources) Open wound of buttock; Translations: [Finding of sacral region] Onset: 08-13-2020 08-13-2020 Episodic Other connective tissue disease (20 sources) Other muscle spasm; Translations: [Muscle spasticity present] Onset: 04-09-2010 05-19-2016 Episodic Other connective tissue disease (1 source) Neuropathic pain; Translations: [Neuropathic pain] Episodic Other gastrointestinal disorders (20 sources) Swollen abdomen; Translations: [Dysphagia] Onset: 03-12-2006 05-15-2016 Episodic Other gastrointestinal disorders (20 sources) Dysphagia; Translations: [Dysphagia, unspecified] Onset: 03-12-2006 05-19-2016 Episodic Other gastrointestinal disorders (2 sources) Abdominal distension ; Translations: [Abdominal distention] Onset: 05-15-2016 05-15-2016 Episodic Other injuries and conditions due to external causes (20 sources) Hypoxia; Translations: [Pulmonary aspiration ] Onset: 12-22-2016 12-22-2016 Episodic Other injuries and conditions due to external causes (3 sources) Other injury of unspecified body region, subsequent encounter; Translations: [OTH INJURY UNS BODY REG SUBSQT ENC] Onset: 01-11-2025 Episodic Other lower respiratory disease (2 sources) Hypoxemia; Translations: [Hypoxemia] Onset: 12-22-2016 Episodic Other nervous system disorders (20 sources) Spasticity; Translations: [Cramp and spasm] Onset: 04-09-2010 05-19-2016 Episodic Pneumonia (20 sources) Infective pneumonia; Translations: [Pneumonia] Onset: 05-25-2016 05-25-2016 Episodic Residual codes; unclassified (2 sources) Altered mental status, unspecified; Translations: [Altered mental status, unspecified] Onset: 04-21-2024 Episodic Residual codes; unclassified (1 source) Presence of other specified devices; Translations: [PRESENCE OF OTHER SPECIFIED DEVICES] Onset: 07-21-2024 Episodic Septicemia (except in labor) (20 sources) Sepsis; Translations: [Sepsis, unspecified organism] Onset: 11-29-2018 11-29-2018 Episodic Spondylosis; intervertebral disc disorders; other back problems (20 sources) Torticollis; Translations: [Torticollis] Onset: 03-12-2006 05-19-2016 Episodic Unclassified (20 sources) Edema, generalized; Translations: [Generalized edema] Onset: 07-26-2017 07-26-2017 Episodic Urinary tract infections (20 sources) Acute urinary tract infection; Translations: [Urinary tract infectious disease] Onset: 03-21-2020 03-21-2020 Episodic Viral infection (20 sources) Disease caused by 2019-nCoV; Translations: [COVID-19] Onset: 09-23-2020 09-23-2020 Episodic Results Test Name Value Interpretation Reference Range Facility Anion gap in Serum or Plasma Ordered By: Shima Krishnamurthy on 05-14-2025 Anion gap [Moles/Vol] 12 mmol/L 01-11 [facility] BUN/creatinine ratioOrdered By: Shima Krishnamurthy on 05-14-2025 Urea nitrogen/Creatinine [Mass ratio] 54.3 mg/mg High 06-18 [facility] Basic Metabolic Profile (BMP )on 05-14-2025 BUN/CRE 54.3 RATIO High 06-18 [facility] Comment on above: Performed By: #### L 101.9900, L500.2500, L501.8820, L100.0500 ####[facility] [address] [place], [address] Calcium [Mass/Vol] 9.7 mg/dL Normal 7.6-11.0 [facility] Comment on above: Performed By: #### L 101.9900, L500.2500, L501.8820, L100.0500 ####[facility] [address] [place], [address] Chloride [Moles/Vol] 102 mmol/L Normal 98-108 [facility] Comment on above: Performed By: #### L 101.9900, L500.2500, L501.8820, L100.0500 ####[facility] [address] [place], [address] CO2 [Moles/Vol] 29.1 mmol/L Normal 21.0-32.0 [facility] Comment on above: Performed By: #### L 101.9900, L500.2500, L501.8820, L100.0500 ####[facility] [address] [place], [address] Creatinine [Mass/Vol] 0.30 mg/dL Low 0.70-1.20 [facility] Comment on above: Performed By: #### L 101.9900, L500.2500, L501.8820, L100.0500 ####[facility] [address] [place], [address] GAP 12 Normal 5-15 [facility] Comment on above: Performed By: #### L 101.9900, L500.2500, L501.8820, L100.0500 ####[facility] [address] [place], [address] GFR/1.73 sq M.predicted among non-blacks MDRD (S/P/Bld) [Vol rate/Area] 141 mL/min/{1.73_m2} Normal >60 [facility] Comment on above: Result Comment: mL/m in/1.73m2 CKD-EPI Creatinine Equation (2020) Performed By: #### L 101.9900, L500.2500, L501.8820, L100.0500 ####[facility] [address] [place], [address] Glucose [Mass/Vol] 136 mg/dL High 70-99 [facility] Comment on above: Performed By: #### L 101.9900, L500.2500, L501.8820, L100.0500 ####[facility] [address] [place], [address] Potassium [Moles/Vol] 4.8 mmol/L Normal 3.3-5.1 [facility] Comment on above: Result Comment: Hemo lysis present, Results??could be affected. ?? Performed By: #### L 101.9900, L500.2500, L501.8820, L100.0500 ####[facility] [address] [place], [address] Sodium [Moles/Vol] 142 mmol/L Normal 133-145 [facility] Comment on above: Performed By: #### L 101.9900, L500.2500, L501.8820, L100.0500 ####[facility] [address] [place], [address] Urea nitrogen [Mass/Vol] 17 mg/dL Normal 4-19 [facility] Comment on above: Performed By: #### L 101.9900, L500.2500, L501.8820, L100.0500 ####[facility] [address] [place], [address] CBC-Complete Blood Cnt No Di ffon 05-14-2025 PLT TNP Normal 150-450 [facility] Comment on above: Result Comment: Plea se note: For this sample, a platelet estimate is provided rather than a platelet count due to platelet clumping. Other parameters associated with this sample are not affected by platelet clumping. If a more accurate platelet count is required, a redraw of the patient will be necessary. Performed By: #### L 101.9900, L500.2500, L501.8820, L100.0500 ####[facility] [address] [place], [address] MPV TNP Normal 6.2-12.0 [facility] Comment on above: Performed By: #### L 101.9900, L500.2500, L501.8820, L100.0500 ####[facility] [address] [place], [address] Erythrocyte distribution width (RBC) [Ratio] 14.9 % High 11.6-14.6 [facility] Comment on above: Performed By: #### L 101.9900, L500.2500, L501.8820, L100.0500 ####[facility] [address] [place], [address] Hematocrit (Bld) [Volume fraction] 39.5 % Normal 37-47 [facility] Comment on above: Performed By: #### L 101.9900, L500.2500, L501.8820, L100.0500 ####[facility] [address] [place], [address] Hemoglobin (Bld) [Mass/Vol] 11.9 g/dL Low 12.0-15.0 [facility] Comment on above: Performed By: #### L 101.9900, L500.2500, L501.8820, L100.0500 ####[facility] [address] [place], [address] MCH (RBC) [Entitic mass] 27.4 pg Normal 27.0-32.0 [facility] Comment on above: Performed By: #### L 101.9900, L500.2500, L501.8820, L100.0500 ####[facility] [address] [place], [address] MCHC (RBC) [Mass/Vol] 30.1 g/dL Low 32-36 [facility] Comment on above: Performed By: #### L 101.9900, L500.2500, L501.8820, L100.0500 ####[facility] [address] [place], [address] MCV (RBC) [Entitic vol] 90.8 fL Normal 81-99 [facility] Comment on above: Performed By: #### L 101.9900, L500.2500, L501.8820, L100.0500 ####[facility] [address] [place], [address] RBC (Bld) [#/Vol] 4.35 10*6/uL Normal 4.2-5.4 [facility] Comment on above: Performed By: #### L 101.9900, L500.2500, L501.8820, L100.0500 ####[facility] [address] [place], [address] RDW SD 49.9 fl High 35.1-43.9 [facility] Comment on above: Performed By: #### L 101.9900, L500.2500, L501.8820, L100.0500 ####[facility] [address] [place], [address] WBC (Bld) [#/Vol] 10.4 10*3/uL Normal 4.4-11.0 [facility] Comment on above: Performed By: #### L 101.9900, L500.2500, L501.8820, L100.0500 ####[facility] [address] [place], [address] Carbon dioxide, total [Moles /volume] in Central venous bloodOrdered By: Shima Krishnamurthy on 05-14-2025 CO2 [Moles/Vol] 29.1 mmol/L 21.0-32.0 [facility] Chloride assayOrdered By: Elisabeth Krishnamurthy on 05-14-2025 Chloride [Moles/Vol] 102 mmol/L 98-108 [facility] Erythrocyte Sed Rateon 05-14 SED RATE 48 mm/hr High 0-30 [facility] Comment on above: Performed By: #### L 101.9900, L500.2500, L501.8820, L100.0500 ####[facility] [address] [place], [address] Erythrocyte distribution wid th ratioOrdered By: Shima Krishnamurthy on 05-14-2025 Erythrocyte distribution width (RBC) [Ratio] 14.9 % High 11.6-14.6 [facility] Erythrocyte distribution wid th standard deviationOrdered By: Shima Krishnamurthy on 05-14-2025 Erythrocyte distribution width (RBC) [Ratio] 49.9 fl High 35.1-43.9 [facility] Erythrocyte sedimentation ra teOrdered By: Shima Krishnamurthy on 05-14-2025 ESR (Bld) [Velocity] 48 mm/h High 0-30 [facility] Glomerular filtration rate ( GFR) estimation/1.73 sq m using serum, plasma, or whole bOrdered By: Shima Krishnamurthy on 05-14-2025 GFR/1.73 sq M.predicted among non-blacks MDRD (S/P/Bld) [Vol rate/Area] 141 mL/min/{1.73_m2} >60 [facility] Comment on above: mL/min/1.73m2 CKD-EP I Creatinine Equation (2020) Hematocrit Auto (Bld) [Volum e fraction]Ordered By: Shima Krishnamurthy on 05-14-2025 Hematocrit (Bld) [Volume fraction] 39.5 % 37-47 [facility] Hemoglobin measurementOrdere d By: Shima Krishnamurthy on 05-14-2025 Hemoglobin (Bld) [Mass/Vol] 11.9 g/dL Low 12.0-15.0 [facility] MCV (mean corpuscular volume ) determinationOrdered By: Shima Krishnamurthy on 05-14-2025 MCV (RBC) [Entitic vol] 90.8 fL 81-99 [facility] Mean corpuscular hemoglobin (MCH) determinationOrdered By: Shima Krishnamurthy on 05-14-2025 MCH (RBC) [Entitic mass] 27.4 pg 27.0-32.0 [facility] Mean corpuscular hemoglobin concentration (MCHC) determinationOrdered By: Shima Krishnamurthy on 05-14-2025 MCHC (RBC) [Mass/Vol] 30.1 g/dL Low 32-36 [facility] Mean platelet volume determi nationOrdered By: Shima Krishnamurthy on 05-14-2025 Mean platelet volume determination [facility] Comment on above: Test not performed Platelet countOrdered By: Elisabeth Krishnamurthy on 05-14-2025 Platelet count [facility] Comment on above: Test not performedPl ease note: For this sample, a platelet estimate is provided rather than a platelet count due to platelet clumping. Other parameters associated with this sample are not affected by platelet clumping. If a more accurate platelet count is required, a redraw of the patient will be necessary. Potassium measurement (mass/ volume)Ordered By: Shima Krishnamurthy on 05-14-2025 Potassium (Unsp spec) [Mass/Vol] 4.8 mmol/L 3.3-5.1 [facility] Comment on above: Hemolysis present, R esults could be affected. RBC Auto (Bld) [#/Vol]Ordere d By: Shima Krishnamurthy on 05-14-2025 RBC (Bld) [#/Vol] 4.35 10*6/uL 4.2-5.4 [facility] Serum creatinine measurement (mass/volume)Ordered By: Shima Krishnamurthy on 05-14-2025 Creatinine [Mass/Vol] 0.30 mg/dL Low 0.70-1.20 [facility] Serum glucose measurement (m ass/volume)Ordered By: Shima Krishnamurthy on 05-14-2025 Glucose [Mass/Vol] 136 mg/dL High 70-99 [facility] Serum or plasma calcium robin urement (mass/volume)Ordered By: Shima Krishnamurthy on 05-14-2025 Calcium [Mass/Vol] 9.7 mg/dL 7.6-11.0 [facility] Serum or plasma urea nitroge n measurement (mass/volume)Ordered By: Shima Krishnamurthy on 05-14-2025 Urea nitrogen [Mass/Vol] 17 mg/dL 4-19 [facility] Sodium levelOrdered By: Juanito Krishnamurthy on 05-14-2025 Sodium [Moles/Vol] 142 mmol/L 133-145 [facility] Trough vancomycin levelOrder ed By: Shima Krishnamurthy on 05-14-2025 Vancomycin trough [Mass/Vol] ug/mL Low 5.0-15.0 [facility] Comment on above: Recommended goal tro ugh ranges are generally 10-15 mcg/ml for less severe/complicated infections such as cellulitis or UTI and 15-20 mcg/ml for more severe/complicated infections such as bacteremia/sepsis, osteomyelitis, pneumonia or meningitis. Goal trough ranges should take into account indication, patient-specific factors and organism QUE.VANCOMYCIN STANDARED DRUG THERAPY TROUGH LEVEL: 5.0 - 15.0 mg/L VANCOMYCIN HIGH INTENSITY THERAPY TROUGH LEVEL: 15.0 - 20.0 mg/L High Intensity therapy recommended for serious lifethreatening infections include:- Bremuaqqso-Zlnuhtvgsylj-Ibrqktcyi (Ventilator/Healtcare Associated)-Sepsis PLEASE CONTACT PHARMACY SERVICES (#[id number]) FOR INTERPRETATIONOF RESULTS. Vancomycin, Trough Levelon 0 05-14-2025 VANCO, TROUGH < 4.0 Low 5.0-15.0 [facility] Comment on above: Order Comment: 0000 Result Comment: Gaurav mmended goal trough ranges are generally 10-15 mcg/ml for less severe/complicated infections such as cellulitis or UTI and 15-20 mcg/ml for more severe/complicated infections such as bacteremia/sepsis, osteomyelitis, pneumonia or meningitis. Goal trough ranges should take into account indication, patient-specific factors and organism QUE. VANCOMYCIN STANDARED DRUG THERAPY TROUGH LEVEL: 5.0 - 15.0 mg/L VANCOMYCIN HIGH INTENSITY THERAPY TROUGH LEVEL: 15.0 - 20.0 mg/L High Intensity therapy recommended for serious life threatening infections include: - Meningitis -Endocarditis -Pneumonia (Ventilator/Healtcare Associated) -Sepsis PLEASE CONTACT PHARMACY SERVICES (#[id number]) FOR INTERPRETATION OF RESULTS. Performed By: #### L 101.9900, L500.2500, L501.8820, L100.0500 #### [facility] [address] [place], [address] White blood cell (WBC) count Ordered By: Shima Krishnamurthy on 05-14-2025 WBC (Bld) [#/Vol] 10.4 10*3/uL 4.4-11.0 [facility] Anion gap in Serum or Plasma Ordered By: Shima Krishnamurthy on 05-07-2025 Anion gap [Moles/Vol] 10 mmol/L 01-11 [facility] BUN/creatinine ratioOrdered By: Shima Krishnamurthy on 05-07-2025 Urea nitrogen/Creatinine [Mass ratio] 48.8 mg/mg High 06-18 [facility] Basic Metabolic Profile (BMP )on 05-07-2025 BUN/CRE 48.8 RATIO High 06-18 [facility] Comment on above: Performed By: #### L 100.0500, L500.2500, L501.8820, L101.9900 ####[facility] [address] [place], [address] Calcium [Mass/Vol] 9.4 mg/dL Normal 7.6-11.0 [facility] Comment on above: Performed By: #### L 100.0500, L500.2500, L501.8820, L101.9900 ####[facility] [address] [place], [address] Chloride [Moles/Vol] 101 mmol/L Normal 98-108 [facility] Comment on above: Performed By: #### L 100.0500, L500.2500, L501.8820, L101.9900 ####[facility] [address] [place], [address] CO2 [Moles/Vol] 30.2 mmol/L Normal 21.0-32.0 [facility] Comment on above: Performed By: #### L 100.0500, L500.2500, L501.8820, L101.9900 ####[facility] [address] [place], [address] Creatinine [Mass/Vol] 0.25 mg/dL Low 0.70-1.20 [facility] Comment on above: Performed By: #### L 100.0500, L500.2500, L501.8820, L101.9900 ####[facility] [address] [place], [address] GAP 10 Normal 5-15 [facility] Comment on above: Performed By: #### L 100.0500, L500.2500, L501.8820, L101.9900 ####[facility] [address] [place], [address] GFR/1.73 sq M.predicted among non-blacks MDRD (S/P/Bld) [Vol rate/Area] 148 mL/min/{1.73_m2} Normal >60 [facility] Comment on above: Result Comment: mL/m in/1.73m2 CKD-EPI Creatinine Equation (2020) Performed By: #### L 100.0500, L500.2500, L501.8820, L101.9900 ####[facility] [address] [place], [address] Glucose [Mass/Vol] 104 mg/dL High 70-99 [facility] Comment on above: Performed By: #### L 100.0500, L500.2500, L501.8820, L101.9900 ####[facility] [address] [place], [address] Potassium [Moles/Vol] 4.0 mmol/L Normal 3.3-5.1 [facility] Comment on above: Performed By: #### L 100.0500, L500.2500, L501.8820, L101.9900 ####[facility] [address] [place], [address] Sodium [Moles/Vol] 141 mmol/L Normal 133-145 [facility] Comment on above: Performed By: #### L 100.0500, L500.2500, L501.8820, L101.9900 ####[facility] [address] [place], [address] Urea nitrogen [Mass/Vol] 12 mg/dL Normal 4-19 [facility] Comment on above: Performed By: #### L 100.0500, L500.2500, L501.8820, L101.9900 ####[facility] [address] [place], [address] CBC-Complete Blood Cnt No ffon 05-07-2025 Erythrocyte distribution width (RBC) [Ratio] 15.3 % High 11.6-14.6 [facility] Comment on above: Performed By: #### L 100.0500, L500.2500, L501.8820, L101.9900 ####[facility] [address] [place], [address] Hematocrit (Bld) [Volume fraction] 37.6 % Normal 37-47 [facility] Comment on above: Performed By: #### L 100.0500, L500.2500, L501.8820, L101.9900 ####[facility] [address] [place], [address] Hemoglobin (Bld) [Mass/Vol] 11.6 g/dL Low 12.0-15.0 [facility] Comment on above: Performed By: #### L 100.0500, L500.2500, L501.8820, L101.9900 ####[facility] [address] [place], [address] MCH (RBC) [Entitic mass] 28.0 pg Normal 27.0-32.0 [facility] Comment on above: Performed By: #### L 100.0500, L500.2500, L501.8820, L101.9900 ####[facility] [address] [place], [address] MCHC (RBC) [Mass/Vol] 30.9 g/dL Low 32-36 [facility] Comment on above: Performed By: #### L 100.0500, L500.2500, L501.8820, L101.9900 ####[facility] [address] [place], [address] MCV (RBC) [Entitic vol] 90.8 fL Normal 81-99 [facility] Comment on above: Performed By: #### L 100.0500, L500.2500, L501.8820, L101.9900 ####[facility] [address] [place], [address] Platelet mean volume (Bld) [Entitic vol] 9.7 fL Normal 6.2-12.0 [facility] Comment on above: Performed By: #### L 100.0500, L500.2500, L501.8820, L101.9900 ####[facility] [address] [place], [address] Platelets (Bld) [#/Vol] 299 10*3/uL Normal 150-450 [facility] Comment on above: Performed By: #### L 100.0500, L500.2500, L501.8820, L101.9900 ####[facility] [address] [place], [address] RBC (Bld) [#/Vol] 4.14 10*6/uL Low 4.2-5.4 [facility] Comment on above: Performed By: #### L 100.0500, L500.2500, L501.8820, L101.9900 ####[facility] [address] [place], [address] RDW SD 50.5 fl High 35.1-43.9 [facility] Comment on above: Performed By: #### L 100.0500, L500.2500, L501.8820, L101.9900 ####[facility] [address] [place], [address] WBC (Bld) [#/Vol] 11.9 10*3/uL High 4.4-11.0 [facility] Comment on above: Performed By: #### L 100.0500, L500.2500, L501.8820, L101.9900 ####[facility] [address] [place], [address] Carbon dioxide, total [Moles /volume] in Central venous bloodOrdered By: Shima Krishnamurthy on 05-07-2025 CO2 [Moles/Vol] 30.2 mmol/L 21.0-32.0 [facility] Chloride assayOrdered By: Elisabeth Krishnamurthy on 05-07-2025 Chloride [Moles/Vol] 101 mmol/L 98-108 [facility] Erythrocyte Sed Rateon 05-07 SED RATE 47 mm/hr High 0-30 [facility] Comment on above: Performed By: #### L 100.0500, L500.2500, L501.8820, L101.9900 ####[facility] [address] [place], [address] Erythrocyte distribution wid th ratioOrdered By: Shima Krishnamurthy on 05-07-2025 Erythrocyte distribution width (RBC) [Ratio] 15.3 % High 11.6-14.6 [facility] Erythrocyte distribution wid th standard deviationOrdered By: Shima Krishnamurthy on 05-07-2025 Erythrocyte distribution width (RBC) [Ratio] 50.5 fl High 35.1-43.9 [facility] Erythrocyte sedimentation ra teOrdered By: Shima Krishnamurthy on 05-07-2025 ESR (Bld) [Velocity] 47 mm/h High 0-30 [facility] Glomerular filtration rate ( GFR) estimation/1.73 sq m using serum, plasma, or whole bOrdered By: Shima Krishnamurthy on 05-07-2025 GFR/1.73 sq M.predicted among non-blacks MDRD (S/P/Bld) [Vol rate/Area] 148 mL/min/{1.73_m2} >60 [facility] Comment on above: mL/min/1.73m2 CKD-EP I Creatinine Equation (2020) Hematocrit Auto (Bld) [Volum e fraction]Ordered By: Shima Krishnamurthy on 05-07-2025 Hematocrit (Bld) [Volume fraction] 37.6 % 37-47 [facility] Hemoglobin measurementOrdere d By: Shima Krishnamurthy on 05-07-2025 Hemoglobin (Bld) [Mass/Vol] 11.6 g/dL Low 12.0-15.0 [facility] MCV (mean corpuscular volume ) determinationOrdered By: Shima Krishnamurthy on 05-07-2025 MCV (RBC) [Entitic vol] 90.8 fL 81-99 [facility] Mean corpuscular hemoglobin (MCH) determinationOrdered By: Shima Krishnamurthy on 05-07-2025 MCH (RBC) [Entitic mass] 28.0 pg 27.0-32.0 [facility] Mean corpuscular hemoglobin concentration (MCHC) determinationOrdered By: Shima Krishnamurthy on 05-07-2025 MCHC (RBC) [Mass/Vol] 30.9 g/dL Low 32-36 [facility] Mean platelet volume determi nationOrdered By: Shima Krishnamurthy on 05-07-2025 Platelet mean volume (Bld) [Entitic vol] 9.7 fL 6.2-12.0 [facility] Platelet countOrdered By: Elisabeth Krishnamurthy on 05-07-2025 Platelets (Bld) [#/Vol] 299 10*3/uL 150-450 [facility] Potassium measurement (mass/ volume)Ordered By: Shima Krishnamurthy on 05-07-2025 Potassium (Unsp spec) [Mass/Vol] 4.0 mmol/L 3.3-5.1 [facility] RBC Auto (Bld) [#/Vol]Ordere d By: Shima Krishnamurthy on 05-07-2025 RBC (Bld) [#/Vol] 4.14 10*6/uL Low 4.2-5.4 [facility] Serum creatinine measurement (mass/volume)Ordered By: Shima Krishnamurthy on 05-07-2025 Creatinine [Mass/Vol] 0.25 mg/dL Low 0.70-1.20 [facility] Serum glucose measurement (m ass/volume)Ordered By: Shima Krishnamurthy on 05-07-2025 Glucose [Mass/Vol] 104 mg/dL High 70-99 [facility] Serum or plasma calcium robin urement (mass/volume)Ordered By: Shima Krishnamurthy on 05-07-2025 Calcium [Mass/Vol] 9.4 mg/dL 7.6-11.0 [facility] Serum or plasma urea nitroge n measurement (mass/volume)Ordered By: Shima Krishnamurthy on 05-07-2025 Urea nitrogen [Mass/Vol] 12 mg/dL 4-19 [facility] Sodium levelOrdered By: Juanito Krishnamurthy on 05-07-2025 Sodium [Moles/Vol] 141 mmol/L 133-145 [facility] Trough vancomycin levelOrder ed By: Shima Krishnamurthy on 05-07-2025 Vancomycin trough [Mass/Vol] ug/mL Low 5.0-15.0 [facility] Comment on above: Recommended goal tro ugh ranges are generally 10-15 mcg/ml for less severe/complicated infections such as cellulitis or UTI and 15-20 mcg/ml for more severe/complicated infections such as bacteremia/sepsis, osteomyelitis, pneumonia or meningitis. Goal trough ranges should take into account indication, patient-specific factors and organism QUE.VANCOMYCIN STANDARED DRUG THERAPY TROUGH LEVEL: 5.0 - 15.0 mg/L VANCOMYCIN HIGH INTENSITY THERAPY TROUGH LEVEL: 15.0 - 20.0 mg/L High Intensity therapy recommended for serious lifethreatening infections include:- Xperjvcphy-Wqcpafgenndh-Fztstesoo (Ventilator/Healtcare Associated)-Sepsis PLEASE CONTACT PHARMACY SERVICES (#[id number]) FOR INTERPRETATIONOF RESULTS. Vancomycin, Trough Levelon 0 05-07-2025 VANCO, TROUGH < 4.0 Low 5.0-15.0 [facility] Comment on above: Order Comment: 0000 Result Comment: Gaurav mmended goal trough ranges are generally 10-15 mcg/ml for less severe/complicated infections such as cellulitis or UTI and 15-20 mcg/ml for more severe/complicated infections such as bacteremia/sepsis, osteomyelitis, pneumonia or meningitis. Goal trough ranges should take into account indication, patient-specific factors and organism QUE. VANCOMYCIN STANDARED DRUG THERAPY TROUGH LEVEL: 5.0 - 15.0 mg/L VANCOMYCIN HIGH INTENSITY THERAPY TROUGH LEVEL: 15.0 - 20.0 mg/L High Intensity therapy recommended for serious life threatening infections include: - Meningitis -Endocarditis -Pneumonia (Ventilator/Healtcare Associated) -Sepsis PLEASE CONTACT PHARMACY SERVICES (#[id number]) FOR INTERPRETATION OF RESULTS. Performed By: #### L 100.0500, L500.2500, L501.8820, L101.9900 ####[facility] [address] [facility] [place], [place], [id number] White blood cell (WBC) count Ordered By: Shima Krishnamurthy on 05-07-2025 WBC (Bld) [#/Vol] 11.9 10*3/uL High 4.4-11.0 [facility] Abdomen/Pelvis W IV Cont ONL Yon 04-06-2025 Abdomen/Pelvis W IV Cont ONLY [facility] Services [address] [place], [place] [id number] Abdomen/Pelvis W IV Cont ONLY MR#: [id number] Acct: [id number] Name: CLAUDINE JOSEPH Rep #: [id number] : 1990 F 34 From: Abhijeet Najera MD PCP: Dr. Colette Goode MD Status: [facility] ER Study: Abdomen/Pelvis W IV Cont ONLY Date of Exam: Exam# [id number] Ordering Dr: Rhina Nicole PROCEDURE: ABDOMEN/PELVIS W IV CONT ONLY 04/06/2025 REASON FOR EXAM: SACRAL WOUND Chronic buttock wound. This has worsened recently. Quadriplegia TECHNIQUE: ABDOMEN/PELVIS W IV CONT ONLY Coronal and Sagittal reconstruction series were provided. CONTRAST: Isovue 370 VOLUME: 75 mL One or more dose reduction techniques were used (e.g., Automated exposure control, adjustment of the mA and/or kV according to patient size, use of iterative reconstruction technique. RADIATION DOSE SUMMARY: CTDlvol: 12 mGy DLP: 520 mGycm COMPARISON: March 14, 2025 x-ray FINDINGS: Lung bases: Compressive subsegmental atelectasis of the lung bases. Liver: Normal Gallbladder: Cholecystectomy. No biliary ductal dilation. Spleen: Normal Pancreas: Normal Adrenals: Normal Kidneys: No collecting system dilation or solid mass seen. Bladder: Empty from a Sage catheter. Mild thickening of the skin around the urethra mainly on the right side. Reproductive Organs: Unremarkable Bowel: Percutaneous gastrostomy tube is present within the otherwise unremarkable stomach. The small bowel is not dilated. Colon appears normal. Appendix: Normal Lymph nodes: None appear enlarged. Vasculature: Normal Peritoneum / Retroperitoneum: No free air, free fluid or mass. Bones: Overlying the right sacral tuberosity there is a large decubitus ulcer crater with thickening of the edgar of the ulcer and mild infiltration of the subcutaneous soft tissues. The soft tissue lesion extends down to the ischial tuberosity where there is a combination of some sclerosis and heterotopic bone formation. No definite cortical thinning or osteolysis is seen. Nevertheless, given that the ulcer extends up to the bone, osteomyelitis should be considered. Overlying the distal sacrum and coccyx there is some mild infiltration of the subcutaneous soft tissues but no ulceration. No cortical destruction or osteolysis. Severe curvature with a rotatory component is seen involving the thoracic and the lumbar spine. Posterior fusion of the spine with hooks and rods is seen and includes the iliac bone on the right in the iliac/SI joint on the left. Abdominal wall: Pain pump is seen overlying the left lower quadrant. The catheter tubing appears to terminate overlying the right upper flank. CT/Abdomen/Pelvis W IV Cont ONLY IMPRESSION: 1. Sacral decubitus ulcer with extension down to the ischial tuberosity. There is heterotopic bone present there. Since the ulcer extends essentially to the level of the bone osteomyelitis should be considered. No drainable abscess or collection. Chronic scarring, inflammation of the skin. 2. Subtle infiltration of the subcutaneous fat overlying the lower sacral segments and coccyx. No skin breakdown seen. No bony abnormality. Early stage ulcer may be present. Recommend direct inspection. 3. Percutaneous gastrostomy tube in place. Uncomplicated 4. Sage catheter in place. Qualitative thickening of the skin on the right side near the opening of the urethra. Recommend direct inspection to ensure no inflammation. 5. Pain pump overlying the left lower quadrant. The catheter tubing terminates overlying the right flank at the level of the liver. Recommend inspection and function evaluation. 6. No acute intra abdominal or pelvic abnormality. 7. Cholecystectomy. Reading Location: [facility] CC: Dr. Colette Goode MD; STACIE Tabor [employer] Operator: Signed Normal [facility] Absolute lymphocyte countOrd ered By: Rhina Nicole on 04-06-2025 Lymphocytes Auto (Unsp spec) [#/Vol] 1.78 10*3/uL 0.83-4.51 [facility] Absolute neutrophil countOrd ered By: Rhina Nicole on 04-06-2025 Neutrophils (Bld) [#/Vol] 5.9 10*3/uL 2.0-7.7 [facility] Anion gap in Serum or Plasma Ordered By: Rhina Nicole on 04-06-2025 Anion gap [Moles/Vol] 9 mmol/L 5-15 [facility] Automated lymphocyte count a s percentage of total leukocytesOrdered By: Rhina Nicole on 04-06-2025 Lymphocytes/100 WBC Auto (Unsp spec) 20.1 % 19-41 [facility] BUN/creatinine ratioOrdered By: Rhina Nicole on 04-06-2025 Urea nitrogen/Creatinine [Mass ratio] 98.5 mg/mg High 10-20 [facility] Basic Metabolic Profile (BMP )on 04-06-2025 BUN/CRE 98.5 RATIO High 10-20 [facility] Comment on above: Performed By: #### L 500.2500, L100.0100 ####[facility] [address] [place], [address] Calcium [Mass/Vol] 9.8 mg/dL Normal 7.6-11.0 [facility] Comment on above: Performed By: #### L 500.2500, L100.0100 ####[facility] [address] [place], [address] Chloride [Moles/Vol] 96 mmol/L Low 98-108 [facility] Comment on above: Performed By: #### L 500.2500, L100.0100 ####[facility] [address] [place], [address] CO2 [Moles/Vol] 38.6 mmol/L High 21.0-32.0 [facility] Comment on above: Performed By: #### L 500.2500, L100.0100 ####[facility] [address] [place], [address] Creatinine [Mass/Vol] 0.27 mg/dL Low 0.70-1.20 [facility] Comment on above: Performed By: #### L 500.2500, L100.0100 ####[facility] [address] [place], [address] GAP 9 Normal 5-15 [facility] Comment on above: Performed By: #### L 500.2500, L100.0100 ####[facility] [address] [place], [address] GFR/1.73 sq M.predicted among non-blacks MDRD (S/P/Bld) [Vol rate/Area] 146 mL/min/{1.73_m2} Normal >60 [facility] Comment on above: Result Comment: mL/m in/1.73m2 CKD-EPI Creatinine Equation (2020) Performed By: #### L 500.2500, L100.0100 ####[facility] [address] [place], [address] Glucose [Mass/Vol] 232 mg/dL High 70-99 [facility] Comment on above: Performed By: #### L 500.2500, L100.0100 ####[facility] [address] [place], [address] Potassium [Moles/Vol] 5.0 mmol/L Normal 3.3-5.1 [facility] Comment on above: Result Comment: Hemo lysis present, Results??could be affected. ?? Performed By: #### L 500.2500, L100.0100 ####[facility] [address] [place], [address] Sodium [Moles/Vol] 144 mmol/L Normal 133-145 [facility] Comment on above: Performed By: #### L 500.2500, L100.0100 ####[facility] [address] [place], [address] Urea nitrogen [Mass/Vol] 27 mg/dL High 4-19 [facility] Comment on above: Performed By: #### L 500.2500, L100.0100 ####[facility] [address] [place], [address] Basophil percentageOrdered B y: Rhinashilpa Nicole on 04-06-2025 Basophils/100 WBC (Bld) 1.1 % High 0-1 [facility] CBC W/Diff, Automatedon Absolute Lymph 1.78 X10 3/uL Normal 0.83-4.51 [facility] Comment on above: Performed By: #### L 500.2500, L100.0100 ####[facility] [address] [place], [address] Absolute Neut 5.9 X10 3/uL Normal 2.0-7.7 [facility] Comment on above: Performed By: #### L 500.2500, L100.0100 ####[facility] [address] [place], [address] Basophils/100 WBC (Bld) 1.1 % High 0-1 [facility] Comment on above: Performed By: #### L 500.2500, L100.0100 ####[facility] [address] [place], [address] Eosinophils/100 WBC (Bld) 2.1 % Normal 0-5 [facility] Comment on above: Performed By: #### L 500.2500, L100.0100 ####[facility] [address] [place], [address] Erythrocyte distribution width (RBC) [Ratio] 14.8 % High 11.6-14.6 [facility] Comment on above: Performed By: #### L 500.2500, L100.0100 ####[facility] [address] [place], [address] Hematocrit (Bld) [Volume fraction] 39.2 % Normal 37-47 [facility] Comment on above: Performed By: #### L 500.2500, L100.0100 ####[facility] [address] [place], [address] Hemoglobin (Bld) [Mass/Vol] 11.3 g/dL Low 12.0-15.0 [facility] Comment on above: Performed By: #### L 500.2500, L100.0100 ####[facility] [address] [place], [address] IG% 0.600 Normal 0.0-0.9 [facility] Comment on above: Result Comment: IG% - Immature Granulocytes (promyelocytes, myelocytes and metamyelocytes) > 1% indicates that a LEFT SHIFT is Present. Performed By: #### L 500.2500, L100.0100 ####[facility] [address] [place], [address] Lymphocytes/100 WBC (Bld) 20.1 % Normal 19-41 [facility] Comment on above: Performed By: #### L 500.2500, L100.0100 ####[facility] [address] [place], [address] MCH (RBC) [Entitic mass] 27.8 pg Normal 27.0-32.0 [facility] Comment on above: Performed By: #### L 500.2500, L100.0100 ####[facility] [address] [place], [address] MCHC (RBC) [Mass/Vol] 28.8 g/dL Low 32-36 [facility] Comment on above: Performed By: #### L 500.2500, L100.0100 ####[facility] [address] [place], [address] MCV (RBC) [Entitic vol] 96.3 fL Normal 81-99 [facility] Comment on above: Performed By: #### L 500.2500, L100.0100 ####[facility] [address] [place], [address] Monocytes/100 WBC (Bld) 9.9 % Normal 0-10 [facility] Comment on above: Performed By: #### L 500.2500, L100.0100 ####[facility] [address] [place], [address] Neutrophils/100 WBC (Bld) 66.2 % Normal 47-70 [facility] Comment on above: Performed By: #### L 500.2500, L100.0100 ####[facility] [address] [place], [address] Nucleated RBC (Bld) [#/Vol] 0 10*3/uL Normal 0-5 [facility] Comment on above: Performed By: #### L 500.2500, L100.0100 ####[facility] [address] [place], [address] Platelet mean volume (Bld) [Entitic vol] 11.0 fL Normal 6.2-12.0 [facility] Comment on above: Performed By: #### L 500.2500, L100.0100 ####[facility] [address] [place], [address] Platelets (Bld) [#/Vol] 258 10*3/uL Normal 150-450 [facility] Comment on above: Performed By: #### L 500.2500, L100.0100 ####[facility] [address] [place], [address] RBC (Bld) [#/Vol] 4.07 10*6/uL Low 4.2-5.4 [facility] Comment on above: Performed By: #### L 500.2500, L100.0100 ####[facility] [address] [place], [address] RDW SD 50.8 fl High 35.1-43.9 [facility] Comment on above: Performed By: #### L 500.2500, L100.0100 ####[facility] [address] [place], [address] WBC (Bld) [#/Vol] 8.9 10*3/uL Normal 4.4-11.0 [facility] Comment on above: Performed By: #### L 500.2500, L100.0100 ####[facility] [address] [place], [address] Carbon dioxide, total [Moles /volume] in Central venous bloodOrdered By: Rhina Nicole on 04-06-2025 CO2 [Moles/Vol] 38.6 mmol/L High 21.0-32.0 [facility] Chloride assayOrdered By: Dara Nicole on 04-06-2025 Chloride [Moles/Vol] 96 mmol/L Low 98-108 [facility] Emergency Department Summary on 04-06-2025 Emergency Department Summary [facility] Medical Records Department [address] [place] [address] Emergency Department Summary 04/06/25 MR#: [id number] Acct: [id number] Name: CLAUDINE JOSEPH Rep #: [id number] : 1990 34 From: Nino Shaver MD PCP: Dr. Colette Goode MD Status:DEP ER Location: ED HPI History of Present Illness Chief Complaint: Wound Narrative Narrative: 34-year-old female with cerebral palsy who is nonverbal, nonmobile, on chronic oxygen after remote pneumonia, has feeding tube and indwelling Sage catheter with a chronic sacral wound x 7 years. Mom states she most recently got wound care at [facility] but the physician left the practice. She was looking around for new center and established with [facility] 3 weeks ago. About a week ago she was started on cefdinir but started to become flushed and uncomfortable and mom finally figured out it was the antibiotic and stopped giving it. They did wound cultures and saw her in the office yesterday and prescribed oral antibiotics which she has not picked up yet. Mom is concerned she needs IV antibiotics through midline because she always improves on IV antibiotics. She said no recent fever. Mom states there are 2 sacral wounds 1 approximately the size of both quarter which tunnels to bone and 1 which is a $0.50 piece which is more shallow. There is no purulent drainage or cellulitis. [facility] Medical History (Updated 04/06/25 @ 15:44 by STACIE Tabor) Quadriplegic infantile cerebral palsy Home Medications ???Medication ???Instructions ???Recorded ???Last Taken ???Type acetaminophen 325 mg tablet (Aphen) 325 mg PO Q6H PRN fever or pain 03/14/25 Unknown History albuterol (refill) 90 mcg inhalation 03/14/25 Unknown Hi story mcg/actuation aerosol inhaler amikacin 1,000 mg/4 mL injection 250 mg IM Q12H 03/14/25 Unknown Hi story solution baclofen 50 mcg/mL intrathecal 50 mcg intrathecal Q24H 03/14/25 U nknown History solution diazepam (Valtoco) 15 mg intranasal Q4H 03/14/25 Unkn own History diazepam 2 mg tablet 2 mg PO DAILY 03/14/25 Unknown His tory doxycycline monohydrate 100 mg 100 mg PO BID 03/14/25 Unknown His tory capsule fluconazole 100 mg tablet 100 mg PO DAILY 03/14/25 Unknown H istory (Diflucan) fluticasone propionate 50 2 spray intranasal DAILY PRN nasal 03/14/25 Unknown History mcg/actuation nasal congestion spray,suspension (Aller-Kenny) ibuprofen 200 mg tablet (IBU-200) 200 mg PO Q8H 03/14/25 Unknown Hi story levetiracetam 100 mg/mL oral PO 03/14/25 Unknown History solution loratadine 10 mg tablet 10 mg PO DAILY 03/14/25 Unknown Hi story medroxyprogesterone 150 mg/mL 150 mg IM QMONTH 03/14/25 Unknown History intramuscular suspension (Depo-Provera) omeprazole 40 mg capsule,delayed 40 mg PO DAILY 03/14/25 Unknown Hi story release polyethylene glycol 3350 17 17 g PO DAILY 03/14/25 Unknown His tory gram/dose oral powder (ClearLax) promethazine 12.5 mg rectal 12.5 mg MS Q6H nausea 03/14/25 Unk nown History suppository singular 03/14/25 Unknown History tramadol 50 mg tablet 50 mg PO DAILY 03/14/25 Unknown Hi story ciprofloxacin 500 mg/5 mL oral 500 mg (5 mL) PO Q12H 4 weeks #280 04/05/25 Unknown Rx suspension (Cipro) mL Allergy/AdvReac Type Severity Reaction Status Date / Time Penicillins (PCN) AdvReac Blisters Verified 04/06/25 12:49 Social History Smoking Status: Never smoker ROS ROS ED ROS Narrative Constitutional: Negative for fever. GI: Negative for vomiting. Skin: Positive for chronic wounds. EXAM Physical Exam Narrative Exam Narrative: CONST: Patient is awake but nonverbal. EYES: Normal inspection. NECK: Normal inspection. RESP: No respiratory distress, CTAB. CVS: Regular rate and rhythm, no murmur, no gallop. SKIN: Color normal, no rash, warm, dry, intact. EXTREMITIES: Atrophy of all extremities. Back/butto Wound VAC in the sacral region. After removal of the wound VAC dressing there is a quarter sized deep ulceration with no surrounding erythema, no pus, no odor. There is a more superficial wound lower than this again with no signs of infection. PSYCH: Normal affect. Const Vital Signs: 04/06/25 12:47 04/06/25 13:17 04/06/25 14:47 Temperature 98.9 F 98.6 F Temperature Source Temporal Oral Pulse Rate 98 78 91 Respiratory Rate 16 16 16 Blood Pressure 96/69 99/61 96/72 Blood Pressure Mean 78 73 80 Pulse Ox 96 98 98 Oxygen Delivery Method Room Air Room Air Nasal Cannula Oxygen Flow Rate (L/min) 2 04/06/25 16:00 04/06/25 16:12 Temperature 98.9 F Temperature Source Pulse Rate 99 78 Respiratory Rate 18 14 Blood P (more content not included)... Normal [facility] Eosinophil percentageOrdered By: Rhina Nicole on 04-06-2025 Eosinophils/100 WBC (Bld) 2.1 % 0-5 [facility] Erythrocyte distribution wid th ratioOrdered By: Rhina Nicole on 04-06-2025 Erythrocyte distribution width (RBC) [Ratio] 14.8 % High 11.6-14.6 [facility] Erythrocyte distribution wid th standard deviationOrdered By: Rhina Nicole on 04-06-2025 Erythrocyte distribution width (RBC) [Ratio] 50.8 fl High 35.1-43.9 [facility] Glomerular filtration rate ( GFR) estimation/1.73 sq m using serum, plasma, or whole bOrdered By: Rhina Nicole on 04-06-2025 GFR/1.73 sq M.predicted among non-blacks MDRD (S/P/Bld) [Vol rate/Area] 146 mL/min/{1.73_m2} >60 [facility] Comment on above: mL/min/1.73m2 CKD-EP I Creatinine Equation (2020) Hematocrit Auto (Bld) [Volum e fraction]Ordered By: Rhina Nicole on 04-06-2025 Hematocrit (Bld) [Volume fraction] 39.2 % 37-47 [facility] Hemoglobin measurementOrdere d By: Rhina Nicole on 04-06-2025 Hemoglobin (Bld) [Mass/Vol] 11.3 g/dL Low 12.0-15.0 [facility] Immature granulocytes/100 WB C Auto (Bld)Ordered By: Rhina Nicole on 04-06-2025 Immature granulocytes/100 WBC (Bld) 0.600 % 0.0-0.9 [facility] Comment on above: IG% - Immature Granu locytes (promyelocytes, myelocytes and metamyelocytes) > 1% indicates that a LEFT SHIFT is Present. MCV (mean corpuscular volume ) determinationOrdered By: Rhina Nicole on 04-06-2025 MCV (RBC) [Entitic vol] 96.3 fL 81-99 [facility] Mean corpuscular hemoglobin (MCH) determinationOrdered By: Rhina Nicole on 04-06-2025 MCH (RBC) [Entitic mass] 27.8 pg 27.0-32.0 [facility] Mean corpuscular hemoglobin concentration (MCHC) determinationOrdered By: Rhina Nicole on 04-06-2025 MCHC (RBC) [Mass/Vol] 28.8 g/dL Low 32-36 [facility] Mean platelet volume determi nationOrdered By: Rhina Nicole on 04-06-2025 Platelet mean volume (Bld) [Entitic vol] 11.0 fL 6.2-12.0 [facility] Monocyte percentageOrdered B y: Rhina Nicole on 04-06-2025 Monocytes/100 WBC (Bld) 9.9 % 0-10 [facility] Neutrophil percentageOrdered By: Rhina Nicole on 04-06-2025 Neutrophils/100 WBC (Bld) 66.2 % 47-70 [facility] Nucleated red blood cell per centageOrdered By: Rhina Nicole on 04-06-2025 Nucleated RBC/100 WBC (Bld) [Ratio] 0 % 0-5 [facility] Platelet countOrdered By: Dara Nicole on 04-06-2025 Platelets (Bld) [#/Vol] 258 10*3/uL 150-450 [facility] Potassium measurement (mass/ volume)Ordered By: Rhina Nicole on 04-06-2025 Potassium (Unsp spec) [Mass/Vol] 5.0 mmol/L 3.3-5.1 [facility] Comment on above: Hemolysis present, R esults could be affected. RBC Auto (Bld) [#/Vol]Ordere d By: Rhina Nicole on 04-06-2025 RBC (Bld) [#/Vol] 4.07 10*6/uL Low 4.2-5.4 [facility] Serum creatinine measurement (mass/volume)Ordered By: Rhina Nicole on 04-06-2025 Creatinine [Mass/Vol] 0.27 mg/dL Low 0.70-1.20 [facility] Serum glucose measurement (m ass/volume)Ordered By: Rhina Nicole on 04-06-2025 Glucose [Mass/Vol] 232 mg/dL High 70-99 [facility] Serum or plasma calcium robin urement (mass/volume)Ordered By: Rhina Nicole on 04-06-2025 Calcium [Mass/Vol] 9.8 mg/dL 7.6-11.0 [facility] Serum or plasma urea nitroge n measurement (mass/volume)Ordered By: Rhina Nicole on 04-06-2025 Urea nitrogen [Mass/Vol] 27 mg/dL High 4-19 [facility] Sodium levelOrdered By: Rhina Nicole on 04-06-2025 Sodium [Moles/Vol] 144 mmol/L 133-145 [facility] White blood cell (WBC) count Ordered By: Rhina Nicole on 04-06-2025 WBC (Bld) [#/Vol] 8.9 10*3/uL 4.4-11.0 [facility] Absolute lymphocyte countOrd ered By: Onelia Gaspar on 04-05-2025 Lymphocytes Auto (Unsp spec) [#/Vol] 1.82 10*3/uL 0.83-4.51 [facility] Absolute neutrophil countOrd ered By: Onelia Gaspar on 04-05-2025 Neutrophils (Bld) [#/Vol] 9.1 10*3/uL High 2.0-7.7 [facility] Anion gap in Serum or Plasma Ordered By: Onelia Gaspar on 04-05-2025 Anion gap [Moles/Vol] 11 mmol/L 5-15 [facility] Automated lymphocyte count a s percentage of total leukocytesOrdered By: Onelia Gaspar on 04-05-2025 Lymphocytes/100 WBC Auto (Unsp spec) 14.9 % Low 19-41 [facility] BUN/creatinine ratioOrdered By: Onelia Gaspar on 04-05-2025 Urea nitrogen/Creatinine [Mass ratio] 83.3 mg/mg High 10-20 [facility] Basic Metabolic Profile (BMP )on 04-05-2025 BUN/CRE 83.3 RATIO High 10 [facility] Comment on above: Performed By: #### L 100.0100, L500.2500 #### [facility] [address] [place], [address] Calcium [Mass/Vol] 9.7 mg/dL Normal 7.6-11.0 [facility] Comment on above: Performed By: #### L 100.0100, L500.2500 #### [facility] [address] [place], [address] Chloride [Moles/Vol] 99 mmol/L Normal 98-108 [facility] Comment on above: Performed By: #### L 100.0100, L500.2500 #### [facility] [address] [place], [address] CO2 [Moles/Vol] 36.2 mmol/L High 21.0-32.0 [facility] Comment on above: Performed By: #### L 100.0100, L500.2500 #### [facility] [address] [place], [address] Creatinine [Mass/Vol] 0.32 mg/dL Low 0.70-1.20 [facility] Comment on above: Performed By: #### L 100.0100, L500.2500 #### [facility] [address] [place], [address] GAP 11 Normal 5-15 [facility] Comment on above: Performed By: #### L 100.0100, L500.2500 #### [facility] [address] [place], [address] GFR/1.73 sq M.predicted among non-blacks MDRD (S/P/Bld) [Vol rate/Area] 140 mL/min/{1.73_m2} Normal >60 [facility] Comment on above: Result Comment: mL/m in/1.73m2 CKD-EPI Creatinine Equation (2020) Performed By: #### L 100.0100, L500.2500 #### [facility] [address] [place], [address] Glucose [Mass/Vol] 180 mg/dL High 70-99 [facility] Comment on above: Performed By: #### L 100.0100, L500.2500 #### [facility] [address] [place], [address] Potassium [Moles/Vol] 3.7 mmol/L Normal 3.3-5.1 [facility] Comment on above: Result Comment: Hemo lysis present, Results??could be affected. ?? Performed By: #### L 100.0100, L500.2500 #### [facility] [address] [place], [address] Sodium [Moles/Vol] 146 mmol/L High 133-145 [facility] Comment on above: Performed By: #### L 100.0100, L500.2500 #### [facility] [address] [place], [address] Urea nitrogen [Mass/Vol] 27 mg/dL High 4-19 [facility] Comment on above: Performed By: #### L 100.0100, L500.2500 #### [facility] [address] [place], [address] Basophil percentageOrdered B y: Onelia Gaspar on 04-05-2025 Basophils/100 WBC (Bld) 0.8 % 0-1 [facility] CBC W/Diff, Automatedon 08-0 Absolute Lymph 1.82 X10 3/uL Normal 0.83-4.51 [facility] Comment on above: Performed By: #### L 100.0100, L500.2500 #### [facility] [address] [place], [address] Absolute Neut 9.1 X10 3/uL High 2.0-7.7 [facility] Comment on above: Performed By: #### L 100.0100, L500.2500 #### [facility] [address] [place], [address] Basophils/100 WBC (Bld) 0.8 % Normal 0-1 [facility] Comment on above: Performed By: #### L 100.0100, L500.2500 #### [facility] [address] [place], [address] Eosinophils/100 WBC (Bld) 1.4 % Normal 0-5 [facility] Comment on above: Performed By: #### L 100.0100, L500.2500 #### [facility] [address] [place], [address] Erythrocyte distribution width (RBC) [Ratio] 14.7 % High 11.6-14.6 [facility] Comment on above: Performed By: #### L 100.0100, L500.2500 #### [facility] [address] [place], [address] Hematocrit (Bld) [Volume fraction] 42.3 % Normal 37-47 [facility] Comment on above: Performed By: #### L 100.0100, L500.2500 #### [facility] [address] [place], [address] Hemoglobin (Bld) [Mass/Vol] 12.5 g/dL Normal 12.0-15.0 [facility] Comment on above: Performed By: #### L 100.0100, L500.2500 #### [facility] [address] [place], [address] IG% 0.600 Normal 0.0-0.9 [facility] Comment on above: Result Comment: IG% - Immature Granulocytes (promyelocytes, myelocytes and metamyelocytes) > 1% indicates that a LEFT SHIFT is Present. Performed By: #### L 100.0100, L500.2500 #### [facility] [address] [place], [address] Lymphocytes/100 WBC (Bld) 14.9 % Low 19-41 [facility] Comment on above: Performed By: #### L 100.0100, L500.2500 #### [facility] [address] [place], [address] MCH (RBC) [Entitic mass] 27.6 pg Normal 27.0-32.0 [facility] Comment on above: Performed By: #### L 100.0100, L500.2500 #### [facility] [address] [place], [address] MCHC (RBC) [Mass/Vol] 29.6 g/dL Low 32-36 [facility] Comment on above: Performed By: #### L 100.0100, L500.2500 #### [facility] [address] [place], [address] MCV (RBC) [Entitic vol] 93.4 fL Normal 81-99 [facility] Comment on above: Performed By: #### L 100.0100, L500.2500 #### [facility] [address] [place], [address] Monocytes/100 WBC (Bld) 7.5 % Normal 0-10 [facility] Comment on above: Performed By: #### L 100.0100, L500.2500 #### [facility] [address] [place], [address] Neutrophils/100 WBC (Bld) 74.8 % High 47-70 [facility] Comment on above: Performed By: #### L 100.0100, L500.2500 #### [facility] [address] [place], [address] Nucleated RBC (Bld) [#/Vol] 0 10*3/uL Normal 0-5 [facility] Comment on above: Performed By: #### L 100.0100, L500.2500 #### [facility] [address] [place], [address] Platelet mean volume (Bld) [Entitic vol] 11.6 fL Normal 6.2-12.0 [facility] Comment on above: Performed By: #### L 100.0100, L500.2500 #### [facility] [address] [place], [address] Platelets (Bld) [#/Vol] 271 10*3/uL Normal 150-450 [facility] Comment on above: Performed By: #### L 100.0100, L500.2500 #### [facility] [address] [place], [address] RBC (Bld) [#/Vol] 4.53 10*6/uL Normal 4.2-5.4 [facility] Comment on above: Performed By: #### L 100.0100, L500.2500 #### [facility] [address] [place], [address] RDW SD 49.2 fl High 35.1-43.9 [facility] Comment on above: Performed By: #### L 100.0100, L500.2500 #### [facility] [address] [place], [address] WBC (Bld) [#/Vol] 12.2 10*3/uL High 4.4-11.0 [facility] Comment on above: Performed By: #### L 100.0100, L500.2500 #### [facility] [address] [place], [address] Carbon dioxide, total [Moles /volume] in Central venous bloodOrdered By: Onelia Gaspar on 04-05-2025 CO2 [Moles/Vol] 36.2 mmol/L High 21.0-32.0 [facility] Chloride assayOrdered By: Gonzalo Gaspar on 04-05-2025 Chloride [Moles/Vol] 99 mmol/L 98-108 [facility] Eosinophil percentageOrdered By: Onelia Gaspar on 04-05-2025 Eosinophils/100 WBC (Bld) 1.4 % 0-5 [facility] Erythrocyte distribution wid th ratioOrdered By: Onelia Gaspar on 04-05-2025 Erythrocyte distribution width (RBC) [Ratio] 14.7 % High 11.6-14.6 [facility] Erythrocyte distribution wid th standard deviationOrdered By: Onelia Gaspar on 04-05-2025 Erythrocyte distribution width (RBC) [Ratio] 49.2 fl High 35.1-43.9 [facility] Glomerular filtration rate ( GFR) estimation/1.73 sq m using serum, plasma, or whole bOrdered By: Onelia Gaspar on 04-05-2025 GFR/1.73 sq M.predicted among non-blacks MDRD (S/P/Bld) [Vol rate/Area] 140 mL/min/{1.73_m2} >60 [facility] Comment on above: mL/min/1.73m2 CKD-EP I Creatinine Equation (2020) Hematocrit Auto (Bld) [Volum e fraction]Ordered By: Onelia Gaspar on 04-05-2025 Hematocrit (Bld) [Volume fraction] 42.3 % 37-47 [facility] Hemoglobin measurementOrdere d By: Onelia Gaspar 04-05-2025 Hemoglobin (Bld) [Mass/Vol] 12.5 g/dL 12.0-15.0 [facility] Immature granulocytes/100 WB C Auto (Bld)Ordered By: Onelia Gaspar 04-05-2025 Immature granulocytes/100 WBC (Bld) 0.600 % 0.0-0.9 [facility] Comment on above: IG% - Immature Granu locytes (promyelocytes, myelocytes and metamyelocytes) > 1% indicates that a LEFT SHIFT is Present. MCV (mean corpuscular volume ) determinationOrdered By: Onelia Gaspar on 04-05-2025 MCV (RBC) [Entitic vol] 93.4 fL 81-99 [facility] Mean corpuscular hemoglobin (MCH) determinationOrdered By: Onelialeatha Gaspar 04-05-2025 MCH (RBC) [Entitic mass] 27.6 pg 27.0-32.0 [facility] Mean corpuscular hemoglobin concentration (MCHC) determinationOrdered By: Onelia Gaspar on 04-05-2025 MCHC (RBC) [Mass/Vol] 29.6 g/dL Low 32-36 [facility] Mean platelet volume determi nationOrdered By: Onelia Gaspar on 04-05-2025 Platelet mean volume (Bld) [Entitic vol] 11.6 fL 6.2-12.0 [facility] Monocyte percentageOrdered B y: Onelia Gaspar on 04-05-2025 Monocytes/100 WBC (Bld) 7.5 % 0-10 [facility] Neutrophil percentageOrdered By: Onelia Gaspar on 04-05-2025 Neutrophils/100 WBC (Bld) 74.8 % High 47-70 [facility] Nucleated red blood cell per centageOrdered By: Onelia Gaspar on 04-05-2025 Nucleated RBC/100 WBC (Bld) [Ratio] 0 % 0-5 [facility] Platelet countOrdered By: Gonzalo Gaspar on 04-05-2025 Platelets (Bld) [#/Vol] 271 10*3/uL 150-450 [facility] Potassium measurement (mass/ volume)Ordered By: Onelia Gaspar on 04-05-2025 Potassium (Unsp spec) [Mass/Vol] 3.7 mmol/L 3.3-5.1 [facility] Comment on above: Hemolysis present, R esults could be affected. RBC Auto (Bld) [#/Vol]Ordere d By: Onelia Gaspar on 04-05-2025 RBC (Bld) [#/Vol] 4.53 10*6/uL 4.2-5.4 [facility] Serum creatinine measurement (mass/volume)Ordered By: Onelia Gaspar on 04-05-2025 Creatinine [Mass/Vol] 0.32 mg/dL Low 0.70-1.20 [facility] Serum glucose measurement (m ass/volume)Ordered By: Onelia Gaspar on 04-05-2025 Glucose [Mass/Vol] 180 mg/dL High 70-99 [facility] Serum or plasma calcium robin urement (mass/volume)Ordered By: Onelia Gaspar on 04-05-2025 Calcium [Mass/Vol] 9.7 mg/dL 7.6-11.0 [facility] Serum or plasma urea nitroge n measurement (mass/volume)Ordered By: Onelia Gaspar on 04-05-2025 Urea nitrogen [Mass/Vol] 27 mg/dL High 4-19 [facility] Sodium levelOrdered By: Abe Gaspar on 04-05-2025 Sodium [Moles/Vol] 146 mmol/L High 133-145 [facility] White blood cell (WBC) count Ordered By: Onelia Gaspar on 04-05-2025 WBC (Bld) [#/Vol] 12.2 10*3/uL High 4.4-11.0 [facility] Culture, Anaerobic Any Sourc uomar 04-03-2025 CUAN List Antibiotics Las t 48 Hours? CEFDINIR List Antibiotics to be Started? NONE Studies have confirmed that Anaerobic Gram Positive Cocci are routinely SUSCEPTABLE to Penicillin and generally susceptible to Beta-lactams and Beta-lactamase inhibitors, Cephalosporins, Carbapenems and Metronidazole. They are showing increased RESISTANCE to Clindamycin Bacteria Spec Anaerobe Cult Prevotella and Porphyromonas species are generally SUSCEPTIBLE to Cefoxitin, Chloramphenicol, and Metronidazole and are usually RESISTANT to Penicillin. Prevotella bivia Beta Lactamase-Reportable Positive Anaerobic cocci Normal [facility] Comment on above: Performed By: #### L 100.0100, L500.2500 #### [facility] [address] [place], [address] Wound Cultureon 04-02-2025 List Antibiotics Las t 48 Hours? CEFDINIR List Antibiotics to be Started? NONE #3 Susceptibility not normally performed on this organism. Enterococcus faecalis Amount Growth Very Rare Enterococcus avium Enterococcus avium CORSTR Amount Growth Rare Corynebacterium striatum Amount Growth Very Rare Proteus mirabilis Pseudomonas aeruginosa EAER Amount Growth Very Rare Proteus mirabilis Ampicillin Islt QUE <=2 Gentamicin Synergy Susc Islt SYN-R R Klebsiella aerogenes Streptomycin High Pot Susc Islt SYN-R Vancomycin Islt QUE 1 S Enterococcus avium: REACTION Ampicillin Islt QUE <=2 S Gentamicin Synergy Susc Islt SYN-S S Linezolid Islt QUE 2 S Streptomycin High Pot Susc Islt SYN-R R Vancomycin Islt QUE <=0.5 S Pseudomonas aeruginosa: REACTION Ciprofloxacin Islt QUE 0.5 S levoFLOXacin Islt QUE 1 S Meropenem Islt QUE <=0.25 S Pip+Tazo Islt QUE 16 S Proteus mirabilis: REACTION Ampicillin Islt QUE <=2 Ampicillin+Sulbac Islt QUE <=2 S Cefepime Islt QUE <=0.12 S cefTRIAXone Islt QUE <=0.25 S Ciprofloxacin Islt QUE <=0.06 S Gentamicin Islt QUE <=1 levoFLOXacin Islt QUE <=0.12 S Meropenem Islt QUE 1 S Pip+Tazo Islt QUE <=4 S TMP SMX Islt QUE <=20 S Klebsiella aerogenes: REACTION Cefepime Islt QUE <=0.12 S cefTRIAXone Islt QUE <=0.25 S Ciprofloxacin Islt QUE <=0.06 S levoFLOXacin Islt QUE <=0.12 S Meropenem Islt QUE <=0.25 S Pip+Tazo Islt QUE 32 TMP SMX Islt UQE <=20 S Normal [facility] Comment on above: Performed By: #### L 100.0100, L500.2500 #### [facility] [address] [place], [place], [id number] Gram Stainon 03-30-2025 GS List Antibiotics Las t 48 Hours? CEFDINIR List Antibiotics to be Started? NONE Gram Stain Rare Gram positive cocci No Epithelial cells Normal [facility] Comment on above: Performed By: #### L 100.0100, L500.2500 #### [facility] [address] [place], [address] Anaerobic cultureOrdered By: Onelia Gaspar on 03-29-2025 Bacteria identified Anaer cx Nom (Unsp spec) Prevotella bivia Abnormal [facility] Bacteria identified Anaer cx Nom (Unsp spec) Anaerobic cocci Abnormal [facility] Gram stainOrdered By: Mariama Gaspar on 03-29-2025 Microscopic observation Gram stain Nom (Unsp spec) [facility] Culture, Anaerobic Any Sourc oumar 03-19-2025 CUAN #1 Studies have confirmed that Anaerobic Gram Positive Cocci are routinely SUSCEPTABLE to Penicillin and generally susceptible to Beta-lactams and Beta-lactamase inhibitors, Cephalosporins, Carbapenems and Metronidazole. They are showing increased RESISTANCE to Clindamycin Bacteria Spec Anaerobe Cult #2 Prevotella and Porphyromonas species are generally SUSCEPTIBLE to Cefoxitin, Chloramphenicol, and Metronidazole and are usually RESISTANT to Penicillin. Anaerobic cocci Prevotella bivia Beta Lactamase-Reportable Positive Normal [facility] Comment on above: Performed By: #### L 100.0100, L500.2500 #### [facility] [address] [place], [place], [address] Wound Cultureon 03-17-2025 WC Klebsiella aerogenes Amount Growth Very Rare Enterococcus faecalis Enterococcus faecalis Klebsiella aerogenes: REACTION Cefepime Islt QUE <=0.12 S cefTRIAXone Islt QUE <=0.25 Ciprofloxacin Islt QUE <=0.06 S levoFLOXacin Islt QUE <=0.12 S Meropenem Islt QUE <=0.25 S Pip+Tazo Islt QUE 32 R TMP SMX Islt QUE <=20 S Enterococcus faecalis: REACTION Ampicillin Islt QUE <=2 S Gentamicin Synergy Susc Islt SYN-R Linezolid Islt QUE 1 S Streptomycin High Pot Susc Islt SYN-R R Vancomycin Islt QUE 1 S Normal [facility] Comment on above: Performed By: #### L 100.0100, L500.2500 #### [facility] [address] [place], [place], [address] Gram Stainon 03-15-2025 GS Gram Stain No organisms seen No cells seen Normal [facility] Comment on above: Performed By: #### L 100.0100, L500.2500 #### [facility] [address] [place], [place], [address] Prealbumin [id number] Prealbumin [Mass/Vol] 24 mg/dL Normal 14-35 [facility] Comment on above: Result Comment: Perf ormed at: CB - [facility] [address] [id number] [employer]: Chacorta Sin PhD, Phone: [phone] Performed By: #### L 3300.6400, L503.6030, L503.6550, L100.0100, L500.4050 #### [facility] [place], [address] Absolute lymphocyte countOrd ered By: Onelia Gaspar on 03-14-2025 Lymphocytes Auto (Unsp spec) [#/Vol] 1.93 10*3/uL 0.83-4.51 [facility] Absolute neutrophil countOrd ered By: Onelia Gaspar on 03-14-2025 Neutrophils (Bld) [#/Vol] 6.9 10*3/uL 2.0-7.7 [facility] Anaerobic cultureOrdered By: Jaimee Marshall on 03-14-2025 Bacteria identified Anaer cx Nom (Unsp spec) Anaerobic cocci Abnormal [facility] Bacteria identified Anaer cx Nom (Unsp spec) Prevotella bivia Abnormal [facility] Anion gap in Serum or Plasma Ordered By: Onelia Gaspar on 03-14-2025 Anion gap [Moles/Vol] 11 mmol/L 5- [facility] Automated lymphocyte count a s percentage of total leukocytesOrdered By: Onelia Gaspar on 03-14-2025 Lymphocytes/100 WBC Auto (Unsp spec) 19.2 % 19- [facility] BUN/creatinine ratioOrdered By: Onelia Hubert on 03-14-2025 Urea nitrogen/Creatinine [Mass ratio] 52.7 mg/mg High 10-20 [facility] Basophil percentageOrdered B y: Onelia Gaspar on 03-14-2025 Basophils/100 WBC (Bld) 1.0 % 0-1 [facility] Bilirubin, totalOrdered By: Onelia Gaspar on 03-14-2025 Bilirubin [Mass/Vol] 0.19 mg/dL 0.00-1.30 [facility] CBC W/Diff, Automatedon 02-27 Absolute Lymph 1.93 X10 3/uL Normal 0.83-4.51 [facility] Comment on above: Performed By: #### L 3300.6400, L503.6030, L503.6550, L100.0100, L500.4050 #### [facility] [address] [place], [address] Absolute Neut 6.9 X10 3/uL Normal 2.0-7.7 [facility] Comment on above: Performed By: #### L 3300.6400, L503.6030, L503.6550, L100.0100, L500.4050 #### [facility] [address] [place], [address] Basophils/100 WBC (Bld) 1.0 % Normal 0-1 [facility] Comment on above: Performed By: #### L 3300.6400, L503.6030, L503.6550, L100.0100, L500.4050 #### [facility] [address] [place], [address] Eosinophils/100 WBC (Bld) 1.7 % Normal 0-5 [facility] Comment on above: Performed By: #### L 3300.6400, L503.6030, L503.6550, L100.0100, L500.4050 #### [facility] [address] [place], [address] Erythrocyte distribution width (RBC) [Ratio] 14.1 % Normal 11.6-14.6 [facility] Comment on above: Performed By: #### L 3300.6400, L503.6030, L503.6550, L100.0100, L500.4050 #### [facility] [address] [place], [address] Hematocrit (Bld) [Volume fraction] 39.8 % Normal 37-47 [facility] Comment on above: Performed By: #### L 3300.6400, L503.6030, L503.6550, L100.0100, L500.4050 #### [facility] [address] [place], [address] Hemoglobin (Bld) [Mass/Vol] 12.1 g/dL Normal 12.0-15.0 [facility] Comment on above: Performed By: #### L 3300.6400, L503.6030, L503.6550, L100.0100, L500.4050 #### [facility] [address] [place], [address] IG% 0.400 Normal 0.0-0.9 [facility] Comment on above: Result Comment: IG% - Immature Granulocytes (promyelocytes, myelocytes and metamyelocytes) > 1% indicates that a LEFT SHIFT is Present. Performed By: #### L 3300.6400, L503.6030, L503.6550, L100.0100, L500.4050 #### [facility] [address] [place], [address] Lymphocytes/100 WBC (Bld) 19.2 % Normal 19-41 [facility] Comment on above: Performed By: #### L 3300.6400, L503.6030, L503.6550, L100.0100, L500.4050 #### [facility] [address] [place], [address] MCH (RBC) [Entitic mass] 27.6 pg Normal 27.0-32.0 [facility] Comment on above: Performed By: #### L 3300.6400, L503.6030, L503.6550, L100.0100, L500.4050 #### [facility] [address] [place], [address] MCHC (RBC) [Mass/Vol] 30.4 g/dL Low 32-36 [facility] Comment on above: Performed By: #### L 3300.6400, L503.6030, L503.6550, L100.0100, L500.4050 #### [facility] [address] [place], [address] MCV (RBC) [Entitic vol] 90.7 fL Normal 81-99 [facility] Comment on above: Performed By: #### L 3300.6400, L503.6030, L503.6550, L100.0100, L500.4050 #### [facility] [address] [place], [address] Monocytes/100 WBC (Bld) 9.4 % Normal 0-10 [facility] Comment on above: Performed By: #### L 3300.6400, L503.6030, L503.6550, L100.0100, L500.4050 #### [facility] [address] [place], [address] Neutrophils/100 WBC (Bld) 68.3 % Normal 47-70 [facility] Comment on above: Performed By: #### L 3300.6400, L503.6030, L503.6550, L100.0100, L500.4050 #### [facility] [address] [place], [address] Nucleated RBC (Bld) [#/Vol] 0 10*3/uL Normal 0-5 [facility] Comment on above: Performed By: #### L 3300.6400, L503.6030, L503.6550, L100.0100, L500.4050 #### [facility] [address] [place], [address] Platelet mean volume (Bld) [Entitic vol] 10.4 fL Normal 6.2-12.0 [facility] Comment on above: Performed By: #### L 3300.6400, L503.6030, L503.6550, L100.0100, L500.4050 #### [facility] [address] [place], [address] Platelets (Bld) [#/Vol] 306 10*3/uL Normal 150-450 [facility] Comment on above: Performed By: #### L 3300.6400, L503.6030, L503.6550, L100.0100, L500.4050 #### [facility] [address] [place], [address] RBC (Bld) [#/Vol] 4.39 10*6/uL Normal 4.2-5.4 [facility] Comment on above: Performed By: #### L 3300.6400, L503.6030, L503.6550, L100.0100, L500.4050 #### [facility] [address] [place], [address] RDW SD 47.1 fl High 35.1-43.9 [facility] Comment on above: Performed By: #### L 3300.6400, L503.6030, L503.6550, L100.0100, L500.4050 #### [facility] [address] [place], [address] WBC (Bld) [#/Vol] 10.1 10*3/uL Normal 4.4-11.0 [facility] Comment on above: Performed By: #### L 3300.6400, L503.6030, L503.6550, L100.0100, L500.4050 #### [facility] [address] [place], [address] Carbon dioxide, total [Moles /volume] in Central venous bloodOrdered By: Onelia Gaspar on 03-14-2025 CO2 [Moles/Vol] 31.1 mmol/L 21.0-32.0 [facility] Chloride assayOrdered By: Gonzalo Gaspar on 03-14-2025 Chloride [Moles/Vol] 102 mmol/L 98-108 [facility] Comprehensive Metabolic Prof ilon 03-14-2025 Albumin [Mass/Vol] 3.9 g/dL Normal 3.5-5.0 [facility] Comment on above: Performed By: #### L 3300.6400, L503.6030, L503.6550, L100.0100, L500.4050 #### [facility] [address] [place], [address] Albumin/Globulin [Mass ratio] 1.2 {ratio} Normal 0.9-2.4 [facility] Comment on above: Performed By: #### L 3300.6400, L503.6030, L503.6550, L100.0100, L500.4050 #### [facility] [address] [place], [address] ALK PHOS 197 U/L High 35-104 [facility] Comment on above: Performed By: #### L 3300.6400, L503.6030, L503.6550, L100.0100, L500.4050 #### [facility] [address] [place], [address] ALT [Catalytic activity/Vol] 24 U/L Normal <=34 [facility] Comment on above: Performed By: #### L 3300.6400, L503.6030, L503.6550, L100.0100, L500.4050 #### [facility] [address] [place], [address] AST [Catalytic activity/Vol] 21 U/L Normal <=31 [facility] Comment on above: Performed By: #### L 3300.6400, L503.6030, L503.6550, L100.0100, L500.4050 #### [facility] [address] [place], [address] Bilirubin [Mass/Vol] 0.19 mg/dL Normal 0.00-1.30 [facility] Comment on above: Performed By: #### L 3300.6400, L503.6030, L503.6550, L100.0100, L500.4050 #### [facility] [address] [place], [address] BUN/CRE 52.7 RATIO High 10-20 [facility] Comment on above: Performed By: #### L 3300.6400, L503.6030, L503.6550, L100.0100, L500.4050 #### [facility] [address] [place], [address] Calcium [Mass/Vol] 9.5 mg/dL Normal 7.6-11.0 [facility] Comment on above: Performed By: #### L 3300.6400, L503.6030, L503.6550, L100.0100, L500.4050 #### [facility] [address] [place], [address] Chloride [Moles/Vol] 102 mmol/L Normal 98-108 [facility] Comment on above: Performed By: #### L 3300.6400, L503.6030, L503.6550, L100.0100, L500.4050 #### [facility] [address] [place], [address] CO2 [Moles/Vol] 31.1 mmol/L Normal 21.0-32.0 [facility] Comment on above: Performed By: #### L 3300.6400, L503.6030, L503.6550, L100.0100, L500.4050 #### [facility] [address] [place], [address] Creatinine [Mass/Vol] 0.28 mg/dL Low 0.70-1.20 [facility] Comment on above: Performed By: #### L 3300.6400, L503.6030, L503.6550, L100.0100, L500.4050 #### [facility] [address] [place], [address] ECRCL 152.75 ml/min Normal 50-250 [facility] Comment on above: Performed By: #### L 3300.6400, L503.6030, L503.6550, L100.0100, L500.4050 #### [facility] [address] [place], [address] GAP 11 Normal 5-15 [facility] Comment on above: Performed By: #### L 3300.6400, L503.6030, L503.6550, L100.0100, L500.4050 #### [facility] [address] [place], [address] GFR/1.73 sq M.predicted among non-blacks MDRD (S/P/Bld) [Vol rate/Area] 145 mL/min/{1.73_m2} Normal >60 [facility] Comment on above: Result Comment: mL/m in/1.73m2 CKD-EPI Creatinine Equation (2020) Performed By: #### L 3300.6400, L503.6030, L503.6550, L100.0100, L500.4050 #### [facility] [address] [place], [address] Globulin (S) [Mass/Vol] 3.3 g/dL Normal 2.2-4.2 [facility] Comment on above: Performed By: #### L 3300.6400, L503.6030, L503.6550, L100.0100, L500.4050 #### [facility] [address] [place], [address] Glucose [Mass/Vol] 94 mg/dL Normal 70-99 [facility] Comment on above: Performed By: #### L 3300.6400, L503.6030, L503.6550, L100.0100, L500.4050 #### [facility] [address] [place], [address] Potassium [Moles/Vol] 3.9 mmol/L Normal 3.3-5.1 [facility] Comment on above: Performed By: #### L 3300.6400, L503.6030, L503.6550, L100.0100, L500.4050 #### [facility] [address] [place], [address] Sodium [Moles/Vol] 143 mmol/L Normal 133-145 [facility] Comment on above: Performed By: #### L 3300.6400, L503.6030, L503.6550, L100.0100, L500.4050 #### [facility] [address] [place], [address] T PROT 7.2 g/dL Normal 5.9-8.4 [facility] Comment on above: Performed By: #### L 3300.6400, L503.6030, L503.6550, L100.0100, L500.4050 #### [facility] [address] [place], [address] Urea nitrogen [Mass/Vol] 15 mg/dL Normal 4-19 [facility] Comment on above: Performed By: #### L 3300.6400, L503.6030, L503.6550, L100.0100, L500.4050 #### [facility] [address] [place], [address] Eosinophil percentageOrdered By: Onelia Gaspar on 03-14-2025 Eosinophils/100 WBC (Bld) 1.7 % 0-5 [facility] Erythrocyte distribution wid th ratioOrdered By: Onelia Gaspar on 03-14-2025 Erythrocyte distribution width (RBC) [Ratio] 14.1 % 11.6-14.6 [facility] Erythrocyte distribution wid th standard deviationOrdered By: Onelia Gaspar on 03-14-2025 Erythrocyte distribution width (RBC) [Ratio] 47.1 fl High 35.1-43.9 [facility] Ferritinon 03-14-2025 Ferritin [Mass/Vol] 21 ng/mL Low 22-378 [facility] Comment on above: Performed By: #### L 3300.6400, L503.6030, L503.6550, L100.0100, L500.4050 #### [facility] [address] [place], [place], [address] Glomerular filtration rate ( GFR) estimation/1.73 sq m using serum, plasma, or whole bOrdered By: Onelia Gaspar on 03-14-2025 GFR/1.73 sq M.predicted among non-blacks MDRD (S/P/Bld) [Vol rate/Area] 145 mL/min/{1.73_m2} >60 [facility] Comment on above: mL/min/1.73m2 CKD-EP I Creatinine Equation (2020) Gram stainOrdered By: Jaimee bledsoe on 03-14-2025 Microscopic observation Gram stain Nom (Unsp spec) [facility] HIP, UNI W/ Pelvis 2-3 Views on 03-14-2025 HIP, UNI W/ Pelvis 2-3 Views [facility] [address] [place], [place] [address] HIP, UNI W/ Pelvis 2-3 Views MR#: [id number] Acct: [id number] Name: CLAUDINE JOSEPH Rep #: [id number] : 1990 F 34 From: Wilder Walter MD PCP: Dr. Colette Goode MD Status: REG RCR Study: HIP, UNI W/ Pelvis 2-3 Views Date of Exam: Exam# [id number] Ordering Dr: Jaimee Marshall COMPREHENSIVE OPHTHALMOLOGIST N P-C EXAM: XR Right Hip With Pelvis When Performed, 2 or 3 Views CLINICAL INDICATION: RBUTTOCK WOUND/R/O OSTEOMYELITIS TECHNIQUE: Two or three views of the right hip with pelvis when performed. COMPARISON: No relevant prior studies available. FINDINGS: BONES/JOINTS: No obvious radiographic evidence of osteomyelitis. However, if clinical suspicion remains high, further evaluation with 3 phase bone scan or MRI is recommended. No acute fracture. No dislocation. No erosive changes to the osseous structures. SOFT TISSUES: Soft tissue swelling. RAD/HIP, UNI W/ Pelvis 2-3 Views IMPRESSION: No obvious radiographic evidence of osteomyelitis. However, if clinical suspicion remains high, further evaluation with 3 phase bone scan or MRI is recommended. Reading Location: [facility] CC: STEPHENIE Marshall; Dr. Colette Goode MD Chlorine Plant Operator: Signed Normal [facility] Hematocrit Auto (Bld) [Volum e fraction]Ordered By: Onelia Gaspar on 03-14-2025 Hematocrit (Bld) [Volume fraction] 39.8 % 37-47 [facility] Hemoglobin measurementOrdere d By: Onelia Gaspar on 03-14-2025 Hemoglobin (Bld) [Mass/Vol] 12.1 g/dL 12.0-15.0 [facility] Immature granulocytes/100 WB C Auto (Bld)Ordered By: Oenlia Gaspar on 03-14-2025 Immature granulocytes/100 WBC (Bld) 0.400 % 0.0-0.9 [facility] Comment on above: IG% - Immature Granu locytes (promyelocytes, myelocytes and metamyelocytes) > 1% indicates that a LEFT SHIFT is Present. Iron measurement (mass/mass) Ordered By: Onelia Gaspar on 03-14-2025 Iron (Unsp spec) [Mass/Mass] 37 ug/dL Low 50-170 [facility] Iron+Iron Binding Capacityon 03-14-2025 Iron [Mass/Vol] 37 ug/dL Low 50-170 [facility] Comment on above: Performed By: #### L 3300.6400, L503.6030, L503.6550, L100.0100, L500.4050 #### [facility] [address] [place], [address] IRON SATURATION 10.0 Low 13-59 [facility] Comment on above: Performed By: #### L 3300.6400, L503.6030, L503.6550, L100.0100, L500.4050 #### [facility] [address] [place], [address] TIBC 373 ug/dL Normal 250-450 [facility] Comment on above: Performed By: #### L 3300.6400, L503.6030, L503.6550, L100.0100, L500.4050 #### [facility] [address] [place], [address] UIBC 336 ug/dL Normal 228-428 [facility] Comment on above: Performed By: #### L 3300.6400, L503.6030, L503.6550, L100.0100, L500.4050 #### [facility] [address] [place], [address] Laboratory - Chemistry and C hemistry - challengeOrdered By: Onelia Gaspar on 03-14-2025 AST [Catalytic activity/Vol] 21 U/L <32 [facility] MCV (mean corpuscular volume ) determinationOrdered By: Onelia Gaspar on 03-14-2025 MCV (RBC) [Entitic vol] 90.7 fL 81-99 [facility] Mean corpuscular hemoglobin (MCH) determinationOrdered By: Onelia Gaspar on 03-14-2025 MCH (RBC) [Entitic mass] 27.6 pg 27.0-32.0 [facility] Mean corpuscular hemoglobin concentration (MCHC) determinationOrdered By: Onelia Gaspar on 03-14-2025 MCHC (RBC) [Mass/Vol] 30.4 g/dL Low 32-36 [facility] Mean platelet volume determi nationOrdered By: Onelia Gaspar on 03-14-2025 Platelet mean volume (Bld) [Entitic vol] 10.4 fL 6.2-12.0 [facility] Monocyte percentageOrdered B y: Onelia Gaspar on 03-14-2025 Monocytes/100 WBC (Bld) 9.4 % 0-10 [facility] Neutrophil percentageOrdered By: Onelia Gaspar on 03-14-2025 Neutrophils/100 WBC (Bld) 68.3 % 47-70 [facility] No Panel InformationOrdered By: Onelia Gaspar on 03-14-2025 Unsaturated Iron Binding Capacity 336 ug/dL 228-428 [facility] Nucleated red blood cell per centageOrdered By: Onelia Gaspar on 03-14-2025 Nucleated RBC/100 WBC (Bld) [Ratio] 0 % 0-5 [facility] Platelet countOrdered By: Gonzalo Gaspar on 03-14-2025 Platelets (Bld) [#/Vol] 306 10*3/uL 150-450 [facility] Potassium measurement (mass/ volume)Ordered By: Onelia Gaspar on 03-14-2025 Potassium (Unsp spec) [Mass/Vol] 3.9 mmol/L 3.3-5.1 [facility] RBC Auto (Bld) [#/Vol]Ordere d By: Onelia Gaspar on 03-14-2025 RBC (Bld) [#/Vol] 4.39 10*6/uL 4.2-5.4 [facility] Serum creatinine measurement (mass/volume)Ordered By: Onelia Gaspar on 03-14-2025 Creatinine [Mass/Vol] 0.28 mg/dL Low 0.70-1.20 [facility] Serum globulin measurementOr dered By: Onelia Gaspar on 03-14-2025 Globulin (S) [Mass/Vol] 3.3 g/dL 2.2-4.2 [facility] Serum glucose measurement (m ass/volume)Ordered By: Onelia Gaspar on 03-14-2025 Glucose [Mass/Vol] 94 mg/dL 70-99 [facility] Serum or plasma alanine morrissey otransferase (ALT) measurementOrdered By: Onelia Gaspar on 03-14-2025 ALT [Catalytic activity/Vol] 24 U/L <35 [facility] Serum or plasma albumin robin urement (mass/volume)Ordered By: Onelia Gaspar on 03-14-2025 Albumin [Mass/Vol] 3.9 g/dL 3.5-5.0 [facility] Serum or plasma albumin/glob ulin mass ratioOrdered By: Onelia Gaspar on 03-14-2025 Albumin/Globulin [Mass ratio] 1.2 {ratio} 0.9-2.4 [facility] Serum or plasma alkaline delmi sphatase measurementOrdered By: Onelia Gaspar on 03-14-2025 ALP [Catalytic activity/Vol] 197 U/L High 35-104 [facility] Serum or plasma calcium robin urement (mass/volume)Ordered By: Onelia Gaspar on 03-14-2025 Calcium [Mass/Vol] 9.5 mg/dL 7.6-11.0 [facility] Serum or plasma ferritin milagro surement (mass/volume)Ordered By: Onelia Gaspar on 03-14-2025 Ferritin [Mass/Vol] 21 ng/mL Low 22-378 [facility] Serum or plasma iron saturat ion measurement (mass fraction)Ordered By: Onelia Gaspar on 03-14-2025 Iron saturation [Mass fraction] 10.0 % Low 13-59 [facility] Serum or plasma urea nitroge n measurement (mass/volume)Ordered By: Onelia Gaspar on 03-14-2025 Urea nitrogen [Mass/Vol] 15 mg/dL 4-19 [facility] Serum prealbumin measurement by immunoassayOrdered By: Onelia Gaspar on 03-14-2025 Prealbumin [Mass/Vol] 24 mg/dL 14-35 [facility] Comment on above: Performed at: [place] [id number] Director: Chacorta Sin PhD, Phone: [phone] Sodium levelOrdered By: Abe Gaspar on 03-14-2025 Sodium [Moles/Vol] 143 mmol/L 133-145 [facility] Total proteinOrdered By: Surya Gaspar on 03-14-2025 Protein [Mass/Vol] 7.2 g/dL 5.9-8.4 [facility] White blood cell (WBC) count Ordered By: Onelia Gaspar on 03-14-2025 WBC (Bld) [#/Vol] 10.1 10*3/uL 4.4-11.0 [facility] History AND Physic comfort 03-14-2025 Wound Ctr History & Physical [facility] [address] [place] [address] H P Exam - Wound Care 03/14/25 1222 MR#: [id number] Acct: [id number] Name: CLAUDINE JOSEPH Rep #: [id number] : 1990 34 From: Jaimee Marshall NP COMPREHENSIVE OPHTHALMOLOGIST-C PCP: Dr. Colette Goode MD Status:REG RCR Location: History of Present Illness Date of Service: 03/14/25 Chief Complaint: Follow-up on an old coccyx wound History of Wound: Adopted mother states that she is nonverbal nonmobile 34-year-old white female with a long-term opening in her coccyx gluteal fold opening she does have Sage to CD at this time. The area has depth and is no tunneling but does come out on top near her perineal area. Adopted mom states she has been on lots of antibiotics and that there is redness around the wound and she feels it is infected again and would like it rechecked the wound has not really been checked by a doctor for about 2 months when she lost her regular doctor down by their house. Mother and health policy nurse take care of her 22/03 she does have a low air mattress she does have padding for her seat cushions when she is up in a wheelchair though she is not able to hold herself up at all. Skin turgor looks good she does have history of malnutrition and of iron deficient anemia. Adoptive mom was here mostly for a second opinion because he is getting upset with down by her house the wound care center at that point he has not really done anything and they just keep putting topicals on her. Today we will do wound cultures and also start packing with some Dakin's and see if that helps with the wound but eventually she is cannot probably need a wound VAC. [facility] Medical History (Updated 03/14/25 @ 12:38 by Jaimee Marshall NP, COMPREHENSIVE OPHTHALMOLOGIST-C) Quadriplegic infantile cerebral palsy Home Medications ???Medication ???Instructions ???Recorded ???Last Taken ???Type acetaminophen 325 mg tablet (Aphen) 325 mg PO Q6H PRN fever or pain 03/14/25 Unknown History albuterol (refill) 90 mcg inhalation 03/14/25 Unknown Hi story mcg/actuation aerosol inhaler amikacin 1,000 mg/4 mL injection 250 mg IM Q12H 03/14/25 Unknown Hi story solution baclofen 50 mcg/mL intrathecal 50 mcg intrathecal Q24H 03/14/25 U nknown History solution diazepam (Valtoco) 15 mg intranasal Q4H 03/14/25 Unkn own History diazepam 2 mg tablet 2 mg PO DAILY 03/14/25 Unknown His tory doxycycline monohydrate 100 mg 100 mg PO BID 03/14/25 Unknown His tory capsule fluconazole 100 mg tablet 100 mg PO DAILY 03/14/25 Unknown H istory (Diflucan) fluticasone propionate 50 2 spray intranasal DAILY PRN nasal 03/14/25 Unknown History mcg/actuation nasal congestion spray,suspension (Aller-Kenny) ibuprofen 200 mg tablet (IBU-200) 200 mg PO Q8H 03/14/25 Unknown Hi story levetiracetam 100 mg/mL oral PO 03/14/25 Unknown History solution loratadine 10 mg tablet 10 mg PO DAILY 03/14/25 Unknown Hi story medroxyprogesterone 150 mg/mL 150 mg IM QMONTH 03/14/25 Unknown History intramuscular suspension (Depo-Provera) omeprazole 40 mg capsule,delayed 40 mg PO DAILY 03/14/25 Unknown Hi story release polyethylene glycol 3350 17 17 g PO DAILY 03/14/25 Unknown His tory gram/dose oral powder (ClearLax) promethazine 12.5 mg rectal 12.5 mg MS Q6H nausea 03/14/25 Unk nown History suppository singular 03/14/25 Unknown History tramadol 50 mg tablet 50 mg PO DAILY 03/14/25 Unknown Hi story Allergy/AdvReac Type Severity Reaction Status Date / Time Penicillins (PCN) AdvReac Blisters Verified 03/14/25 10:49 ROS Constitutional Constitutional: Reports systems reviewed and no addt'l complaints, except as documented Eyes Eyes: Reports systems reviewed and no addt'l complaints, except as documented ENT HEENT: Reports systems reviewed and no addt'l complaints, except as documented Cardiovascular Cardiovascular: Reports systems reviewed and no addt'l complaints, except as documented Respiratory/Chest Respiratory/Chest: Reports systems reviewed and no addt'l complaints, except as documented Gastrointestinal Gastrointestinal: Reports systems reviewed and no addt'l complaints, except as documented Genitourinary Genitourinary: Reports systems reviewed and no addt'l complaints, except as documented Musculoskeletal Musculoskeletal: Reports systems reviewed and no addt'l complaints, except as documented Integumentary Integumentary: Reports wounds and other Details: Open wound in the gluteal fold coccyx area that kind of wraps around and comes up near her perineum Neurologic Neurologic: Reports systems reviewed and no addt'l complaints, except as documented Psychiatric Psychiatric: Reports systems reviewed and no addt'l complaints, except as documented Endocrine Endocrinology: Reports systems reviewed and no addt'l complaints, (more content not included)... Normal [facility] QUE 1 DRUGon 03-13-2025 Antimicrobial Susceptibility Comment Normal [facility] Comment on above: Result Comment: S = Susceptible; I = Intermediate; R = Resistant P = Positive; N = Negative MICS are expressed in micrograms per mL Antibiotic RSLT#1 RSLT#2 RSLT#3 RSLT#4 Cefepime S =8 Performed By: #### 1 8481-2 #### [place] [address] [place] [address] Vacuum Cleaner Operator - [facility] NEVAEH [id number] Min Inhibitory Conc (1 Drug) Final report Normal [facility] Comment on above: Performed By: #### 1 8481-2 #### [place] [address] Vacuum Cleaner Operator [facility] [id number] Result 1 Comment Normal [facility] Comment on above: Result Comment: Pseu domonas aeruginosa Identification performed by account, not confirmed by this laboratory. Performed By: #### 1 8481-2 #### [place] [address] Vacuum Cleaner Operator - [facility] [id number] CULTURE ROUTINEon 02-21-2025 Bacteria identified Aer cx Nom (Wound) PSEUDOMONAS SENT TO REFERENCE LAB FOR CEFEPIME SUSCEPTIBILITY P. aeruginosa may develop resistance during prolonged therapy with all anti- Pseudomonas aeruginosa LIGHT GROWTH ORGANISM: Isolate 1 ANTIBIOTIC INTERP QUE Piperacillin/Tazobactam R >=128 Meropenem S <=0.25 Levofloxacin S 1 ORGANISM: Isolate 2 ANTIBIOTIC INTERP QUE Ampicillin S <=2 Ampicillin/Sulbactam S <=2 Piperacillin/Tazobactam S <=4 Cefazolin S 4 Ceftriaxone S <=0.25 Gentamicin S <=1 Levofloxacin S <=0.12 Trimethoprim/Sulfamethox azole S <=20 Normal [facility] Comment on above: Performed By: #### 5 7021-8 #### [place] [address] [place] [address] Vacuum Cleaner Operator - Linda HERRING [id number] CULTURE ANAEROBICon 02-21-20 25 Bacteria identified Anaer cx Nom (Wound) NO ANAEROBES ISOLATED Normal [facility] Comment on above: Performed By: #### 1 8481-2 #### [place] [address] [place] [address] Vacuum Cleaner Operator - Linda HERRING [id number] C REACTIVE PROTEINon 025 CRP [Mass/Vol] 19 mg/L High <=10 [facility] Comment on above: Performed By: #### 1 8481-2 #### [place] [address] [place] [address] Vacuum Cleaner Operator - Linda HERRING [id number] CBC W Auto Differential pane l (Bld)on 01-30-2025 Basophils (Bld) [#/Vol] 0.10 10*3/uL Normal <=0.70 [facility] Comment on above: Performed By: #### G S, 624-7 #### [place] [address] [place] [address] Vacuum Cleaner Operator - Linda HERRING [id number] Performed for [place] [address] [place] [address] #### SPUTUME #### [place] [address] [place] [address] Vacuum Cleaner Operator - Linda HERRING [id number] Basophils/100 WBC (Bld) 1.1 % Normal <=2.0 [facility] Comment on above: Performed By: #### G S, 624-7 #### [place] [address] [place] [address] Vacuum Cleaner Operator - Linda HERRING [id number] Performed for [address] [place] [address] #### SPUTUME #### [facility] [address] [place] [address] Vacuum Cleaner Operator - Linda WEBBIA [id number] Eosinophils (Bld) [#/Vol] 0.19 10*3/uL Normal <=0.70 [facility] Comment on above: Performed By: #### Mariana Urban, 627 #### [facility] [address] [place] [address] Vacuum Cleaner Operator - Linda WEBBIA [id number] Performed for [facility] [address] [place] [address] #### SPUTUME #### [facility] [address] [place] [address] Vacuum Cleaner Operator - Linda WEBBIA [id number] Eosinophils/100 WBC (Bld) 2.2 % Normal <=10.0 [facility] Comment on above: Performed By: #### Mariana Urban, 7 #### [facility] [address] [place] [address] Vacuum Cleaner Operator - Linda WEBBIA [id number] Performed for [facility] [address] [place] [address] #### SPUTUME #### [facility] [address] [place] [address] Vacuum Cleaner Operator - Linda WEBBIA [id number] Erythrocyte distribution width (RBC) [Entitic vol] 48.3 fL High 36.4-46.3 [facility] Comment on above: Performed By: #### Mariana Urban, 7 #### [facility] [address] [place] [address] Vacuum Cleaner Operator - Linda WEBBIA [id number] Performed for [facility] [address] [place] [address] #### SPUTUME #### [facility] [address] [place] [address] Vacuum Cleaner Operator - Linda WEBBIA [id number] Hematocrit (Bld) [Volume fraction] 44.6 % Normal 37.0-47.0 [facility] Comment on above: Performed By: #### G Wilmar, 62-7 #### [facility] [address] [place] [address] Vacuum Cleaner Operator - Linda WEBBIA [id number] Performed for [facility] [address] [place] [address] #### SPUTUME #### [place] [address] [place] [address] Vacuum Cleaner Operator - Linda WEBBIA [id number] Hemoglobin (Bld) [Mass/Vol] 13.4 g/dL Normal 12.0-16.0 [facility] Comment on above: Performed By: #### G Wilmar, 7 #### [place] [address] [place] [address] Vacuum Cleaner Operator - Linda WEBBIA [id number] Performed for [facility] [address] [place] [address] #### SPUTUME #### [place] [address] [place] [address] Vacuum Cleaner Operator - Linda WEBBIA [id number] Immature granulocytes (Bld) [#/Vol] 0.04 10*3/uL Normal <=0.10 [facility] Comment on above: Performed By: #### G Wilmar, 7 #### [place] [address] [place] [address] Vacuum Cleaner Operator - Linda WEBBIA [id number] Performed for [facility] [address] [place] [address] #### SPUTUME #### [place] [address] [place] [address] Vacuum Cleaner Operator - Linda WEBBIA [id number] Immature granulocytes/100 WBC (Bld) 0.50 % Normal <=1.50 [facility] Comment on above: Performed By: #### G S, 62-7 #### [place] [address] [place] [address] Vacuum Cleaner Operator - Linda WEBBCORBY [id number] Performed for [facility] [address] [place] [address] #### SPUTUME #### [facility] [address] [place] [address] Vacuum Cleaner Operator - Linda HERRING [id number] Lymphocytes (Bld) [#/Vol] 1.60 10*3/uL Normal 1.20-3.40 [facility] Comment on above: Performed By: #### G Wilmar, 624-7 #### [facility] [address] [place] [address] Vacuum Cleaner Operator - Linda HERRING [id number] Performed for [facility] [address] [place] [address] #### SPUTUME #### [place] [address] [place] [address] Vacuum Cleaner Operator - Linda HERRING [id number] Lymphocytes/100 WBC (Bld) 18.2 % Low 20.0-40.0 [facility] Comment on above: Performed By: #### G Wilmar, 62-7 #### [facility] [address] [place] [address] Vacuum Cleaner Operator - Linda HERRING [id number] Performed for [facility] [address] [place] [address] #### SPUTUME #### [facility] [address] [place] [address] Vacuum Cleaner Operator - Linda HERRING [id number] MCH (RBC) [Entitic mass] 28.0 pg Normal 27.0-31.0 [facility] Comment on above: Performed By: #### G Wilmar, 624-7 #### [facility] [address] [place] [address] Vacuum Cleaner Operator - Linda HERRING [id number] Performed for [facility] [address] [place] [address] #### SPUTUME #### [facility] [address] [place] [address] Vacuum Cleaner Operator - Linda HERRING [id number] MCHC (RBC) [Mass/Vol] 30.0 g/dL Low 32.0-36.0 [facility] Comment on above: Performed By: #### Mariana Urban, 627 #### [facility] [address] [place] [address] Vacuum Cleaner Operator - Linda HERRING [id number] Performed for [facility] [address] [place] [address] #### SPUTUME #### [place] [address] [place] [address] Vacuum Cleaner Operator - Linda HERRING [id number] MCV (RBC) [Entitic vol] 93.1 fL Normal 80.0-100.0 [facility] Comment on above: Performed By: #### Mariana Urban, 627 #### [place] [address] [place] [address] Vacuum Cleaner Operator - Linda HERRING [id number] Performed for [place] [address] [place] [address] #### SPUTUME #### [place] [address] [place] [address] Vacuum Cleaner Operator - Linda HERRING [id number] Monocytes (Bld) [#/Vol] 0.98 10*3/uL High 0.10-0.60 [facility] Comment on above: Performed By: #### Mariana Urban 627 #### [facility] [address] [place] [address] Vacuum Cleaner Operator - Linda HERRING [id number] Performed for [facility] [address] [place] [address] #### SPUTUME #### [place] [address] [address] [place] [address] Vacuum Cleaner Operator - Linda HERRING [id number] Monocytes/100 WBC (Bld) 11.2 % High <=8.0 [facility] Comment on above: Performed By: #### Mariana Urban, 62-7 #### [facility] [address] [place] [address] Vacuum Cleaner Operator - Linda WEBBIA [id number] Performed for [facility] [address] [place] [address] #### SPUTUME #### [facility] [address] [place] [address] Vacuum Cleaner Operator - Linda WEBBIA [id number] Neutrophils (Bld) [#/Vol] 5.86 10*3/uL Normal 1.40-6.50 [facility] Comment on above: Performed By: #### G Wilmar, 624-7 #### [facility] [address] [place] [address] Vacuum Cleaner Operator - Linda WEBBIA [id number] Performed for [facility] [address] [place] [address] #### SPUTUME #### [place] [address] [place] [address] Vacuum Cleaner Operator - Linda WEBBIA [id number] Neutrophils/100 WBC (Bld) 66.8 % Normal 50.0-70.0 [facility] Comment on above: Performed By: #### G Wilmar, 62-7 #### [facility] [address] [place] [address] Vacuum Cleaner Operator - Linda WEBBIA [id number] Performed for [facility] [address] [place] [address] #### SPUTUME #### [facility] [address] [place] [address] Vacuum Cleaner Operator - Linda WEBBIA [id number] Nucleated RBC (Bld) [#/Vol] 0.00 10*3/uL Normal <=0.10 [facility] Comment on above: Performed By: #### G S, 624-7 #### [facility] [address] [place] [address] Vacuum Cleaner Operator - Linda WEBBIA [id number] Performed for [facility] [address] [place] [address] #### SPUTUME #### [facility] [address] [place] [address] Vacuum Cleaner Operator - Linda WEBBIA [id number] Platelet mean volume (Bld) [Entitic vol] 11.2 fL Normal 9.0-13.0 [facility] Comment on above: Performed By: #### Mariana Urban, 627 #### [facility] [address] [place] [address] Vacuum Cleaner Operator - Linda HERRING [id number] Performed for [facility] [address] [place] [address] #### SPUTUME #### [facility] [address] [place] [address] Vacuum Cleaner Operator - Linda HERRING [id number] Platelets (Bld) [#/Vol] 251 10*3/uL Normal 130-400 [facility] Comment on above: Performed By: #### Mariana Urban, 627 #### [place] [address] [place] [address] Vacuum Cleaner Operator - Linda HERRING [id number] Performed for [facility] [address] [place] [address] #### SPUTUME #### [place] [address] [place] [address] Vacuum Cleaner Operator - Linda HERRING [id number] RBC (Bld) [#/Vol] 4.79 10*6/uL Normal 4.00-6.30 [facility] Comment on above: Performed By: #### Mariana Urban 7 #### [facility] [address] [place] [address] Vacuum Cleaner Operator - Linda HERRING [id number] Performed for [facility] [address] [place] [address] #### SPUTUME #### [facility] [address] [place] [address] Vacuum Cleaner Operator - Linda HERRING [id number] WBC (Bld) [#/Vol] 8.77 10*3/uL Normal 4.80-10.80 [facility] Comment on above: Performed By: #### Mariana Urban, 627 #### [facility] [address] [place] [address] Vacuum Cleaner Operator - Linda HERRING [id number] Performed for [facility] [address] [place] [address] #### SPUTUME #### [facility] [address] [place] [address] Vacuum Cleaner Operator - Linda HERRING [id number] CRP [Mass/Vol]on 01-30-2025 HCRP CRP INTERPRETATION A single CRP determination is of limited diagnostic value while serial determinations help in establishing the trend of an ongoing inflammatory process. CRP values must be interpreted together with other clinical symptoms. Normal values should only be used as a guide. Normal [facility] Comment on above: Performed By: #### 1 8481-2 #### [place] [address] [place] [address] Vacuum Cleaner Operator - Linda HERRING [id number] Comprehensive metabolic 2000 panelon 01-30-2025 Albumin [Mass/Vol] 3.3 g/dL Low 3.4-5.0 [facility] Comment on above: Performed By: #### 1 8481-2 #### [facility] [address] [place] [address] Vacuum Cleaner Operator - Linda HERRING [id number] ALP [Catalytic activity/Vol] 225 U/L High 50-136 [facility] Comment on above: Performed By: #### 1 8481-2 #### [facility] [address] [place] [address] Vacuum Cleaner Operator - Linda HERRING [id number] ALT [Catalytic activity/Vol] 37 U/L Normal 14-59 [facility] Comment on above: Performed By: #### 1 8481-2 #### [facility] [address] [place] [address] Vacuum Cleaner Operator - Linda HERRING [id number] Anion gap [Moles/Vol] 3.0 mmol/L Normal <=15.0 [facility] Comment on above: Performed By: #### 1 8481-2 #### [facility] [address] [place] [address] Vacuum Cleaner Operator - Linda WEBBIA [id number] AST [Catalytic activity/Vol] 30 U/L Normal 15-37 [facility] Comment on above: Performed By: #### 1 8481-2 #### [place] [address] [place] [address] Vacuum Cleaner Operator - Linda WEBBIA [id number] Bilirubin [Mass/Vol] mg/dL Normal 0.2-1.0 [facility] Comment on above: Performed By: #### 1 8481-2 #### [address] [place] [address] Vacuum Cleaner Operator - Linda Das CLIA [id number] Calcium [Mass/Vol] 10.0 mg/dL Normal 8.5-10.1 [facility] Comment on above: Performed By: #### 1 8481-2 #### [address] [place] [address] Vacuum Cleaner Operator - Linda Das CLIA [id number] Chloride [Moles/Vol] 105 mmol/L Normal 98-107 [facility] Comment on above: Performed By: #### 1 8481-2 #### [address] [place] [address] Vacuum Cleaner Operator - Linda WEBBIA [id number] CO2 [Moles/Vol] 38 mmol/L High 21-32 [facility] Comment on above: Performed By: #### 1 8481-2 #### [address] [place] [address] Vacuum Cleaner Operator - Linda Das CLIA [id number] Creatinine [Mass/Vol] 0.25 mg/dL Low 0.51-0.95 [facility] Comment on above: Performed By: #### 1 8481-2 #### [address] [place] [address] Vacuum Cleaner Operator - Linda Das CLIA [id number] GFR/1.73 sq M.predicted MDRD (S/P/Bld) [Vol rate/Area] mL/min/{1.73_m2} Normal >=60 [facility] Comment on above: Performed By: #### 1 8481-2 #### [facility] [address] [place] [address] Vacuum Cleaner Operator - Linda HERRING [id number] Glucose [Mass/Vol] 125 mg/dL High 74-106 [facility] Comment on above: Performed By: #### 1 8481-2 #### [facility] [address] [place] [address] Vacuum Cleaner Operator - Linda HERRING [id number] HGFR GLOMERULAR FILTRATIO N RATE INTERPRETATION~The eGFR is calculated using the MDRD equation.~This equation has been validated in patients with chronic kidney disease;~however, it underestimates the GFR in healthy patients with GFR's over 60 mL/min.~The equation is not valid in children under the age of 18.~NOTE: Criteria for Chronic Kidney Disease:~ ~1. Kidney damage for at least three months, as defined~by structural or functional abnormalities of the kidney,~with or without decreased glomerular filtration rate, manifested by either:~* Pathological abnormalities or~* Markers of Kidney damage, including abnormalities in~the composition of the blood or urine or abnormalities in imaging tests.~ ~2. GFR <60 mL/min/1.73 m squared for at least three months, with or without kidney damage.~ Normal [facility] Comment on above: Performed By: #### 1 8481-2 #### [facility] [address] [place] [address] Vacuum Cleaner Operator - Linda HERRING [id number] Potassium [Moles/Vol] 5.2 mmol/L High 3.5-5.1 [facility] Comment on above: Performed By: #### 1 8481-2 #### [facility] [address] [place] [address] Vacuum Cleaner Operator - Linda HERRING [id number] Protein [Mass/Vol] 7.9 g/dL Normal 6.4-8.2 [facility] Comment on above: Performed By: #### 1 8481-2 #### [facility] [address] [place] [address] Vacuum Cleaner Operator - Linda HERRING [id number] Sodium [Moles/Vol] 146 mmol/L High 136-145 [facility] Comment on above: Performed By: #### 1 8481-2 #### [facility] [address] [place] [address] Vacuum Cleaner Operator - Linda HERRING [id number] Urea nitrogen [Mass/Vol] 13 mg/dL Normal 7-17 [facility] Comment on above: Performed By: #### 1 8481-2 #### [facility] [address] [place] [address] Vacuum Cleaner Operator - Linda HERRING [id number] SEDIMENTATION RATEon 025 ESR (Bld) [Velocity] 77 mm/h High 2-15 [facility] Comment on above: Performed By: #### U AR #### [place] [address] [place] [address] Vacuum Cleaner Operator - Linda HERRING [id number] #### 630-4 #### [place] [address] [place] [address] Vacuum Cleaner Operator - Linda HERRING [id number] Performed for [address] [address] QUE 1 DRUGon 01-22-2025 Antimicrobial Susceptibility Comment Normal [facility] Comment on above: Result Comment: S = Susceptible; I = Intermediate; R = Resistant P = Positive; N = Negative MICS are expressed in micrograms per mL Antibiotic RSLT#1 RSLT#2 RSLT#3 RSLT#4 Cefepime S Performed By: #### G S, 624-7 #### [place] [address] [place] [address] Vacuum Cleaner Operator - Linda HERRING [id number] Performed for [place] [address] [place] [address] #### SPUTUME #### [place] [address] [place] [address] Vacuum Cleaner Operator - Linda HERRING [id number] Min Inhibitory Conc (1 Drug) Final report Normal [facility] Comment on above: Performed By: #### G Wilmar, 624-7 #### [facility] [address] [place] [address] Vacuum Cleaner Operator - Linda WEBBIA [id number] Performed for [place] [address] [place] [address] #### SPUTUME #### [place] [address] [place] [address] Vacuum Cleaner Operator - Linda HERRING [id number] Result 1 Comment Normal [facility] Comment on above: Result Comment: Pseu domonas aeruginosa Identification performed by account, not confirmed by this laboratory. Performed By: #### G Wilmar, 624-7 #### [place] [address] [place] [address] Vacuum Cleaner Operator - Linda HERRING [id number] Performed for [place] [address] [place] [address] #### SPUTUME #### [place] [address] [place] [address] Vacuum Cleaner Operator - Linda HERRING [id number] CULTURE ROUTINEon 01-16-2025 Bacteria identified Aer cx Nom (Wound) P. aeruginosa may develop resistance during prolonged therapy with all anti- Pseudomonas aeruginosa LIGHT GROWTH ORGANISM: Isolate 1 ANTIBIOTIC INTERP QUE Piperacillin/Tazobactam R >=128 Meropenem I 4 Levofloxacin R 4 Imipenem R >=16 Tobramycin S <=1 ORGANISM: Isolate 2 ANTIBIOTIC INTERP QUE Benzylpenicillin S <=0.06 Ampicillin S <=0.25 Ceftriaxone S <=0.12 Levofloxacin I 4 Clindamycin R >=1 Vancomycin S 0.5 Tetracycline R >=16 Normal [facility] Comment on above: Performed By: #### U AR #### [place] [address] [place] [address] Vacuum Cleaner Operator - Linda HERRING [id number] #### 630-4 #### [place] [address] [place] [address] Vacuum Cleaner Operator - Linda HERRING [id number] Performed for [facility] [address] [place] [address] VITAMIN C ABSORBIC ACIDon Vitamin C 1.0 mg/dL Normal 0.4-2.0 [facility] Comment on above: Result Comment: Jayshree min C deficiency is generally defined as plasma concentrations less than 0.2 mg/dL and levels between 0.2 and 0.4 mg/dL are considered low. Performed By: #### G S, 624-7 #### [place] [address] [place] [address] Vacuum Cleaner Operator - Linda HERRING [id number] Performed for [place] [address] #### CHOLOE #### [address] [place] [address] Vacuum Cleaner Operator - Linda HERRING [id number] 25-hydroxyvitamin D [Mass/Vo l]on 01-11-2025 25-hydroxyvitamin D3 [Mass/Vol] 91.2 ng/mL Normal 30.0-100.0 [facility] Comment on above: Performed By: #### V ANCL #### [address] [place] [address] Vacuum Cleaner Operator - Linda HERRING [id number] HVITD VITAMIN D INTERPRETA TION VITAMIN D STATUS RANGE DEFICIENCY <20 ng/mL INSUFFICIENCY 20-30 ng/mL SUFFICIENCY 30-100 ng/mL TOXICITY >100 ng/mL Normal [facility] Comment on above: Performed By: #### V ANCL #### [address] [facility] [place] [place] [address] Vacuum Cleaner Operator - Linda HERRING [id number] Basic metabolic 2000 panelon 01-11-2025 Anion gap [Moles/Vol] 11.0 mmol/L Normal <=15.0 [facility] Comment on above: Performed By: #### 5 7021-8 #### [facility] [address] [place] [address] Vacuum Cleaner Operator - Linda WEBBIA [id number] Calcium [Mass/Vol] 9.8 mg/dL Normal 8.5-10.1 [facility] Comment on above: Performed By: #### 5 7021-8 #### [facility] [address] [place] [address] Vacuum Cleaner Operator - Linda Das CLIA [id number] Chloride [Moles/Vol] 99 mmol/L Normal 98-107 [facility] Comment on above: Performed By: #### 5 7021-8 #### [facility] [address] [place] [address] Vacuum Cleaner Operator - Linda Das CLIA [id number] CO2 [Moles/Vol] 32 mmol/L Normal 21-32 [facility] Comment on above: Performed By: #### 5 7021-8 #### [facility] [address] [place] [address] Vacuum Cleaner Operator - Linda WEBBIA [id number] Creatinine [Mass/Vol] 0.27 mg/dL Low 0.51-0.95 [facility] Comment on above: Performed By: #### 5 7021-8 #### [facility] [address] [place] [address] Vacuum Cleaner Operator - Linda Das CLIA [id number] GFR/1.73 sq M.predicted MDRD (S/P/Bld) [Vol rate/Area] mL/min/{1.73_m2} Normal >=60 [facility] Comment on above: Performed By: #### 5 7021-8 #### [facility] [address] [place] [address] Vacuum Cleaner Operator - Linda Das CLIA [id number] Glucose [Mass/Vol] 112 mg/dL High 74-106 [facility] Comment on above: Performed By: #### 5 7021-8 #### [facility] [address] [place] [address] Vacuum Cleaner Operator - Linda HERRING [id number] HGFR GLOMERULAR FILTRATIO N RATE INTERPRETATION~The eGFR is calculated using the MDRD equation.~This equation has been validated in patients with chronic kidney disease;~however, it underestimates the GFR in healthy patients with GFR's over 60 mL/min.~The equation is not valid in children under the age of 18.~NOTE: Criteria for Chronic Kidney Disease:~ ~1. Kidney damage for at least three months, as defined~by structural or functional abnormalities of the kidney,~with or without decreased glomerular filtration rate, manifested by either:~* Pathological abnormalities or~* Markers of Kidney damage, including abnormalities in~the composition of the blood or urine or abnormalities in imaging tests.~ ~2. GFR <60 mL/min/1.73 m squared for at least three months, with or without kidney damage.~ Normal [facility] Comment on above: Performed By: #### 5 7021-8 #### [facility] [address] [place] [address] Vacuum Cleaner Operator - Linda HERRING [id number] Potassium [Moles/Vol] 4.5 mmol/L Normal 3.5-5.1 [facility] Comment on above: Performed By: #### 5 7021-8 #### [place] [address] [facility]. [place] [address] Vacuum Cleaner Operator - Linda WEBBIA [id number] Sodium [Moles/Vol] 142 mmol/L Normal 136-145 [facility] Comment on above: Performed By: #### 5 7021-8 #### [facility] [address] [facility]. [place] [address] Vacuum Cleaner Operator - Linda HERRING [id number] Urea nitrogen [Mass/Vol] 19 mg/dL High 7-17 [facility] Comment on above: Performed By: #### 5 7021-8 #### [facility] [address] [place] [address] Vacuum Cleaner Operator - Linda HERRING [id number] TSH DL <= 0.05 mIU/L Qnon TSH Qn 1.658 uIU/mL Normal 0.358-3.740 [facility] Comment on above: Performed By: #### 5 7021-8 #### [facility] [address] [place] [address] Vacuum Cleaner Operator - [facility] WiTricityUT [id number] VITAMIN B12on 01-11-2025 Cobalamin (Vitamin B12) [Mass/Vol] 1218 pg/mL Normal 254-1320 [facility] Comment on above: Performed By: #### V ANCL #### [address] [place] [address] Vacuum Cleaner Operator [facility] CL[facility] [id number] CULTURE BLOODon 01-10-2025 Bacteria identified Cx Nom (Bld) NO GROWTH OBSERVED AFTER 5 DAYS [facility] Comment on above: Performed By: #### 6 00-7 #### [address] [place] [address] Vacuum Cleaner Operator - [facility] WiTricityIA [id number] CULTURE URINEon 01-07-2025 Bacteria identified Cx Nom (U) Escherichia coli >100,000 COLONY FORMING UNITS, ML ISOLAT ORGANISM: Isolate 1 ANTIBIOTIC INTERP QUE ESBL Neg Neg Ampicillin S <=2 Ampicillin/Sulbactam S <=2 Piperacillin/Tazobactam S <=4 Cefazolin S <=1 Ceftriaxone S <=0.25 Gentamicin S <=1 Levofloxacin S <=0.12 Nitrofurantoin S <=16 Trimethoprim/Sulfamethox azole S <=20 ORGANISM: Isolate 2 ANTIBIOTIC INTERP QUE Ampicillin S <=2 Ampicillin/Sulbactam S <=2 Piperacillin/Tazobactam S <=4 Cefazolin S 4 Ceftriaxone S <=0.25 Gentamicin S <=1 Levofloxacin S <=0.12 Nitrofurantoin R 64 Trimethoprim/Sulfamethox azole S <=20 ORGANISM: Isolate 3 ANTIBIOTIC INTERP QUE Ampicillin S <=2 Gentamicin High Level (synergy) R SYN-R Streptomycin High Level (synergy) R SYN-R S 1 Vancomycin S 1 I 8 Tetracycline R >=16 Nitrofurantoin S <=16 [facility] Comment on above: Performed By: #### V ANCL #### [facility] [address] [place] [address] Vacuum Cleaner Operator - Linda HERRING [id number] Basic metabolic 2000 panelon 01-06-2025 Anion gap [Moles/Vol] 6.0 mmol/L Normal <=15.0 [facility] Comment on above: Performed By: #### Mariana Urban, 62-7 #### [facility] [address] [place] [address] Vacuum Cleaner Operator - Linda HERRING [id number] Performed for [facility] [address] [place] [address] #### SPUTUME #### [facility] [address] [place] [address] Vacuum Cleaner Operator - Linda HERRING [id number] Calcium [Mass/Vol] 9.2 mg/dL Normal 8.5-10.1 [facility] Comment on above: Performed By: #### Mariana Urban 7 #### [facility] [address] [place] [address] Vacuum Cleaner Operator - Linda HERRING [id number] Performed for [facility] [address] [place] [address] #### SPUTUME #### [facility] [address] [place] [address] Vacuum Cleaner Operator - Linda HERRING [id number] Chloride [Moles/Vol] 107 mmol/L Normal 98-107 [facility] Comment on above: Performed By: #### Mariana Urban, 627 #### [facility] [address] [place] [address] Vacuum Cleaner Operator - Linda HERRING [id number] Performed for [facility] [address] [place] [address] #### SPUTUME #### [facility] [address] [place] [address] Vacuum Cleaner Operator - Linda HERRING [id number] CO2 [Moles/Vol] 31 mmol/L Normal 21-32 [facility] Comment on above: Performed By: #### Mariana Urban, 627 #### [facility] [address] [place] [address] Vacuum Cleaner Operator - Linda HERRING [id number] Performed for [facility] [address] [place] [address] #### SPUTUME #### [facility] [address] [place] [address] Vacuum Cleaner Operator - Linda HERRING [id number] Creatinine [Mass/Vol] 0.22 mg/dL Low 0.51-0.95 [facility] Comment on above: Performed By: #### Mariana Urban, 847 #### [facility] [address] [place] [address] Vacuum Cleaner Operator - Linda HERRING [id number] Performed for [facility] [address] [place] [address] #### SPUTUME #### [facility] [address] [place] [address] Vacuum Cleaner Operator - Linda HERRING [id number] GFR/1.73 sq M.predicted MDRD (S/P/Bld) [Vol rate/Area] mL/min/{1.73_m2} Normal >=60 [facility] Comment on above: Performed By: #### G Wilmar, 627 #### [facility] [address] [place] [address] Vacuum Cleaner Operator - Linda HERRING [id number] Performed for [facility] [address] [place] [address] #### SPUTUME #### [facility] [address] [place] [address] Vacuum Cleaner Operator - Linda HERRING [id number] Glucose [Mass/Vol] 123 mg/dL High 74-106 [facility] Comment on above: Performed By: #### G Wilmar, 307 #### [facility] [address] [place] [address] Vacuum Cleaner Operator - Linda HERRING [id number] Performed for [facility] [address] [place] [address] #### SPUTUME #### [facility] [address] [place] [address] Vacuum Cleaner Operator - Linda HERRING [id number] HGFR GLOMERULAR FILTRATIO N RATE INTERPRETATION~The eGFR is calculated using the MDRD equation.~This equation has been validated in patients with chronic kidney disease;~however, it underestimates the GFR in healthy patients with GFR's over 60 mL/min.~The equation is not valid in children under the age of 18.~NOTE: Criteria for Chronic Kidney Disease:~ ~1. Kidney damage for at least three months, as defined~by structural or functional abnormalities of the kidney,~with or without decreased glomerular filtration rate, manifested by either:~* Pathological abnormalities or~* Markers of Kidney damage, including abnormalities in~the composition of the blood or urine or abnormalities in imaging tests.~ ~2. GFR <60 mL/min/1.73 m squared for at least three months, with or without kidney damage.~ Normal [facility] Comment on above: Performed By: #### G S, 624-7 #### [address] [place] [address] Vacuum Cleaner Operator - Linda HERRING [id number] Performed for [place] [address] #### SPUTUME #### [address] [facility] [place] [address] Vacuum Cleaner Operator - Linda HERRING [id number] Potassium [Moles/Vol] 4.0 mmol/L Normal 3.5-5.1 [facility] Comment on above: Performed By: #### G S, 624-7 #### [facility] [address] [place] [address] Vacuum Cleaner Operator - Linda HERRING [id number] Performed for [facility] [address] [place] [address] #### SPUTUME #### [place] [address] [place] [address] Vacuum Cleaner Operator - Linda HERRING [id number] Sodium [Moles/Vol] 144 mmol/L Normal 136-145 [facility] Comment on above: Performed By: #### G Wilmar, 62-7 #### [facility] [address] [place] [address] Vacuum Cleaner Operator - Linda HERRING [id number] Performed for [facility] [address] [place] [address] #### SPUTUME #### [facility] [address] [place] [address] Vacuum Cleaner Operator - Linda HERRING [id number] Urea nitrogen [Mass/Vol] 9 mg/dL Normal 7- [facility] Comment on above: Performed By: #### Mariana Urban, 7 #### [facility] [address] [place] [address] Vacuum Cleaner Operator - Linda HERRING [id number] Performed for [facility] [address] [place] [address] #### SPUTUME #### [facility] [address] [place] [address] Vacuum Cleaner Operator - Linda HERRING [id number] CBC panel Auto (Bld)on 01-06 Erythrocyte distribution width (RBC) [Entitic vol] 46.6 fL High 36.4-46.3 [facility] Comment on above: Performed By: #### G Wilmar, 62-7 #### [facility] [address] [place] [address] Vacuum Cleaner Operator - Linda HERRING [id number] Performed for [facility] [address] [place] [address] #### SPUTUME #### [facility] [address] [place] [address] Vacuum Cleaner Operator - Linda HERRING [id number] Hematocrit (Bld) [Volume fraction] 36.7 % Low 37.0-47.0 [facility] Comment on above: Performed By: #### G Wilmar, 62-7 #### [facility] [address] [place] [address] Vacuum Cleaner Operator - Linda HERRING [id number] Performed for [facility] [address] [place] [address] #### SPUTUME #### [facility] [address] [place] [address] Vacuum Cleaner Operator - Linda HERRING [id number] Hemoglobin (Bld) [Mass/Vol] 11.5 g/dL Low 12.0-16.0 [facility] Comment on above: Performed By: #### G S, 624-7 #### [facility] [address] [place] [address] Vacuum Cleaner Operator - Linda HERRING [id number] Performed for [facility] [address] [place] [address] #### SPUTUME #### [facility] [address] [place] [address] Vacuum Cleaner Operator - Linda HERRING [id number] MCH (RBC) [Entitic mass] 28.3 pg Normal 27.0-31.0 [facility] Comment on above: Performed By: #### G S, 62-7 #### [facility] [address] [place] [address] Vacuum Cleaner Operator - Linda HERRING [id number] Performed for [facility] [address] [place] [address] #### SPUTUME #### [facility] [address] [place] [address] Vacuum Cleaner Operator - Linda HERRING [id number] MCHC (RBC) [Mass/Vol] 31.3 g/dL Low 32.0-36.0 [facility] Comment on above: Performed By: #### G S, 624-7 #### [facility] [address] [place] [address] Vacuum Cleaner Operator - Linda HERRING [id number] Performed for [facility] [address] [place] [address] #### SPUTUME #### [facility] [address] [place] [address] Vacuum Cleaner Operator - Linda HERRING [id number] MCV (RBC) [Entitic vol] 90.4 fL Normal 80.0-100.0 [facility] Comment on above: Performed By: #### Mariana Urban, 62-7 #### [facility] [address] [place] [address] Vacuum Cleaner Operator - Linda HERRING [id number] Performed for [facility] [address] [place] [address] #### SPUTUME #### [facility] [address] [place] [address] Vacuum Cleaner Operator - Linda HERRING [id number] Platelet mean volume (Bld) [Entitic vol] 9.7 fL Normal 9.0-13.0 [facility] Comment on above: Performed By: #### Mariana Urban, 627 #### [place] [address] [place] [address] Vacuum Cleaner Operator - Linda HERRING [id number] Performed for [facility] [address] [place] [address] #### SPUTUME #### [place] [address] [place] [address] Vacuum Cleaner Operator - Linda HERRING [id number] Platelets (Bld) [#/Vol] 329 10*3/uL Normal 130-400 [facility] Comment on above: Performed By: #### Mariana Urban, 7 #### [facility] [address] [place] [address] Vacuum Cleaner Operator - Linda HERRING [id number] Performed for [facility] [address] [place] [address] #### SPUTUME #### [facility] [address] [place] [address] Vacuum Cleaner Operator - Linda HERRING [id number] RBC (Bld) [#/Vol] 4.06 10*6/uL Normal 4.00-6.30 [facility] Comment on above: Performed By: #### Mariana Urban, 62-7 #### [place] [address] [place] [address] Vacuum Cleaner Operator - Linda HERRING [id number] Performed for [facility] [address] [place] [address] #### SPUTUME #### [facility] [address] [place] [address] Vacuum Cleaner Operator - Linda HERRING [id number] WBC (Bld) [#/Vol] 9.81 10*3/uL Normal 4.80-10.80 [facility] Comment on above: Performed By: #### G S, 62-7 #### [facility] [address] [place] [address] Vacuum Cleaner Operator - Linda HERRING [id number] Performed for [facility] [address] [place] [address] #### SPUTUME #### [place] [address] [place] [address] Vacuum Cleaner Operator - Linda HERRING [id number] Tobramycin [Mass/Vol]on 12-28 Tobramycin Random, Serum 0.7 ug/mL Normal 0.5-10.0 [facility] Comment on above: Result Comment: Peak : Therapeutic 6.0 - 10.0 Trough: Therapeutic 0.5 - 1.5 . Detection Limit = 0.4 <0.4 indicates None Detected Performed By: #### G Wilmar, -7 #### [place] [address] [place] [address] Vacuum Cleaner Operator - Linda HERRING [id number] Performed for [facility] [address] [place] [address] #### SPUTUME #### [facility] [address] [place] [address] Vacuum Cleaner Operator - Linda HERRING [id number] Basic metabolic 2000 panelon 01-05-2025 Anion gap [Moles/Vol] 9.0 mmol/L Normal <=15.0 [facility] Comment on above: Performed By: #### G Wilmar, 62-7 #### [place] [address] [place] [address] Vacuum Cleaner Operator - Linda HERRING [id number] Performed for [facility] [address] [place] [address] #### SPUTUME #### [facility] [address] [place] [address] Vacuum Cleaner Operator - Linda HERRING [id number] Calcium [Mass/Vol] 9.8 mg/dL Normal 8.5-10.1 [facility] Comment on above: Performed By: #### G S, 62-7 #### [facility] [address] [place] [address] Vacuum Cleaner Operator - Linda HERRING [id number] Performed for [facility] [address] [place] [address] #### SPUTUME #### [facility] [address] [place] [address] Vacuum Cleaner Operator - Linda HERRING [id number] Chloride [Moles/Vol] 101 mmol/L Normal 98-107 [facility] Comment on above: Performed By: #### G S, 62-7 #### [facility] [address] [place] [address] Vacuum Cleaner Operator - Linda HERRING [id number] Performed for [facility] [address] [place] [address] #### SPUTUME #### [facility] [address] [place] [address] Vacuum Cleaner Operator - Linda HERRING [id number] CO2 [Moles/Vol] 34 mmol/L High 21-32 [facility] Comment on above: Performed By: #### G S, 62-7 #### [facility] [address] [place] [address] Vacuum Cleaner Operator - Linda HERRING [id number] Performed for [facility] [address] [place] [address] #### SPUTUME #### [facility] [address] [place] [address] Vacuum Cleaner Operator - Linda HERRING [id number] Creatinine [Mass/Vol] 0.28 mg/dL Low 0.51-0.95 [facility] Comment on above: Performed By: #### G Wilmar, 624-7 #### [facility] [address] [place] [address] Vacuum Cleaner Operator - Linda HERRING [id number] Performed for [facility] [address] [place] [address] #### SPUTUME #### [place] [address] [place] [address] Vacuum Cleaner Operator - Linda HERRING [id number] GFR/1.73 sq M.predicted MDRD (S/P/Bld) [Vol rate/Area] mL/min/{1.73_m2} Normal >=60 [facility] Comment on above: Performed By: #### G Wilmar, 624-7 #### [facility] [address] [place] [address] Vacuum Cleaner Operator - Linda HRERING [id number] Performed for [facility] [address] [place] [address] #### SPUTUME #### [facility] [address] [place] [address] Vacuum Cleaner Operator - Linda HERRING [id number] Glucose [Mass/Vol] 99 mg/dL Normal 74-106 [facility] Comment on above: Performed By: #### Mariana Urban, 624-7 #### [facility] [address] [place] [address] Vacuum Cleaner Operator - Linda HERRING [id number] Performed for [facility] [address] [place] [address] #### SPUTUME #### [facility] [address] [place] [address] Vacuum Cleaner Operator - Linda HERRING [id number] HGFR GLOMERULAR FILTRATIO N RATE INTERPRETATION~The eGFR is calculated using the MDRD equation.~This equation has been validated in patients with chronic kidney disease;~however, it underestimates the GFR in healthy patients with GFR's over 60 mL/min.~The equation is not valid in children under the age of 18.~NOTE: Criteria for Chronic Kidney Disease:~ ~1. Kidney damage for at least three months, as defined~by structural or functional abnormalities of the kidney,~with or without decreased glomerular filtration rate, manifested by either:~* Pathological abnormalities or~* Markers of Kidney damage, including abnormalities in~the composition of the blood or urine or abnormalities in imaging tests.~ ~2. GFR <60 mL/min/1.73 m squared for at least three months, with or without kidney damage.~ Normal [facility] Comment on above: Performed By: #### G S, 624-7 #### [facility] [address] [place] [address] Vacuum Cleaner Operator [facility] [id number] Performed for [facility] [address] [place] [address] #### SPUTUME #### [facility] [address] [place] [address] Vacuum Cleaner Operator - [facility] [id number] Potassium [Moles/Vol] 3.9 mmol/L Normal 3.5-5.1 [facility] Comment on above: Performed By: #### G S, 62-7 #### [facility] [address] [place] [address] Vacuum Cleaner Operator - [facility] [id number] Performed for [facility] [address] [place] [address] #### SPUTUME #### [facility] [address] [place] [address] Vacuum Cleaner Operator - [facility] NEVAEH [id number] Sodium [Moles/Vol] 144 mmol/L Normal 136-145 [facility] Comment on above: Performed By: #### G S, 624-7 #### [facility] [address] [place] [address] Vacuum Cleaner Operator [facility] NEVAEH [id number] Performed for [facility] [address] [place] [address] #### SPUTUME #### [facility] [address] [place] [address] Vacuum Cleaner Operator - Linda HERRING [id number] Urea nitrogen [Mass/Vol] 19 mg/dL High 7-17 [facility] Comment on above: Performed By: #### Mariana Urban, 627 #### [facility] [address] [place] [address] Vacuum Cleaner Operator - Linda HERRING [id number] Performed for [facility] [address] [place] [address] #### SPUTUME #### [facility] [address] [place] [address] Vacuum Cleaner Operator - Linda HERRING [id number] CBC panel Auto (Bld)on 01-05 Erythrocyte distribution width (RBC) [Entitic vol] 48.8 fL High 36.4-46.3 [facility] Comment on above: Performed By: #### Mariana Urban, 7 #### [facility] [address] [place] [address] Vacuum Cleaner Operator - Linda HERRING [id number] Performed for [facility] [address] [place] [address] #### SPUTUME #### [facility] [address] [place] [address] Vacuum Cleaner Operator - Linda HERRING [id number] Hematocrit (Bld) [Volume fraction] 38.9 % Normal 37.0-47.0 [facility] Comment on above: Performed By: #### Mariana Urban 7 #### [facility] [address] [place] [address] Vacuum Cleaner Operator - Linda HERRING [id number] Performed for [facility] [address] [place] [address] #### SPUTUME #### [facility] [address] [place] [address] Vacuum Cleaner Operator - Linda HERRING [id number] Hemoglobin (Bld) [Mass/Vol] 12.0 g/dL Normal 12.0-16.0 [facility] Comment on above: Performed By: #### Mariana Urban, -7 #### [facility] [address] [place] [address] Vacuum Cleaner Operator - Linda WEBBIA [id number] Performed for [facility] [address] [address] #### SPUTUME #### [place] [address] [place] [address] Vacuum Cleaner Operator - Linda WEBBIA [id number] MCH (RBC) [Entitic mass] 28.4 pg Normal 27.0-31.0 [facility] Comment on above: Performed By: #### Mariana Urban 7 #### [place] [address] [place] [address] Vacuum Cleaner Operator - Linda WEBBIA [id number] Performed for [place] [address] [address] [place] [address] #### SPUTUME #### [place] [address] [place] [address] Vacuum Cleaner Operator - Linda HERRING [id number] MCHC (RBC) [Mass/Vol] 30.8 g/dL Low 32.0-36.0 [facility] Comment on above: Performed By: #### Mariana Urban 7 #### [place] [address] [place] [address] Vacuum Cleaner Operator - Linda WEBBIA [id number] Performed for [place] [address] [place] [place] [address] #### SPUTUME #### [place] [address] [address] [place] [address] Vacuum Cleaner Operator - Linda HERRING [id number] MCV (RBC) [Entitic vol] 92.2 fL Normal 80.0-100.0 [facility] Comment on above: Performed By: #### Mariana Urban 7 #### [place] [address] [place] [address] Vacuum Cleaner Operator - Linda WEBBIA [id number] Performed for [place] [address] [place] [address] #### SPUTUME #### [facility] [address] [place] [address] Vacuum Cleaner Operator - Linda WEBBIA [id number] Platelet mean volume (Bld) [Entitic vol] 10.4 fL Normal 9.0-13.0 [facility] Comment on above: Performed By: #### Mariana Urban, 624-7 #### [facility] [address] [place] [address] Vacuum Cleaner Operator - [place] WEBBIA [id number] Performed for [facility] [address] [place] [address] #### SPUTUME #### [facility] [address] [place] [address] Vacuum Cleaner Operator - Linda WEBBIA [id number] Platelets (Bld) [#/Vol] 300 10*3/uL Normal 130-400 [facility] Comment on above: Performed By: #### Mariana Urban, 624-7 #### [facility] [address] [place] [address] Vacuum Cleaner Operator - Linda WEBBIA [id number] Performed for [facility] [address] [place] [address] #### SPUTUME #### [facility] [address] [place] [address] Vacuum Cleaner Operator - Linda HERRING [id number] RBC (Bld) [#/Vol] 4.22 10*6/uL Normal 4.00-6.30 [facility] Comment on above: Performed By: #### Mariana Urban, 624-7 #### [facility] [address] [place] [address] Vacuum Cleaner Operator - Linda WEBBIA [id number] Performed for [facility] [address] [place] [address] #### SPUTUME #### [facility] [address] [place] [address] Vacuum Cleaner Operator - Linda WEBBIA [id number] WBC (Bld) [#/Vol] 8.93 10*3/uL Normal 4.80-10.80 [facility] Comment on above: Performed By: #### Mariana Urban, 624-7 #### [facility] [address] [place] [address] Vacuum Cleaner Operator - Linda HERRING [id number] Performed for [facility] [address] [place] [address] #### SPUTUME #### [facility] [address] [place] [address] Vacuum Cleaner Operator - Linda HERRING [id number] MAGNESIUMon 01-05-2025 Magnesium [Mass/Vol] 2.2 mg/dL Normal 1.6-2.6 [facility] Comment on above: Performed By: #### Mariana Urban, 627 #### [facility] [address] [place] [address] Vacuum Cleaner Operator - Linda HERRING [id number] Performed for [facility] [address] [place] [address] #### SPUTUME #### [facility] [address] [place] [address] Vacuum Cleaner Operator - Linda HERRING [id number] CBC W Auto Differential pane l (Bld)on 01-04-2025 Basophils (Bld) [#/Vol] 0.10 10*3/uL Normal <=0.70 [facility] Comment on above: Performed By: #### Mariana Urban, 6247 #### [facility] [address] [place] [address] Vacuum Cleaner Operator - Linda HERRING [id number] Performed for [facility] [address] [place] [address] #### SPUTUME #### [facility] [address] [place] [address] Vacuum Cleaner Operator - Linda HERRING [id number] Basophils/100 WBC (Bld) 0.7 % Normal <=2.0 [facility] Comment on above: Performed By: #### Mariana Urban, 6247 #### [facility] [address] [place] [address] Vacuum Cleaner Operator - Linda HERRING [id number] Performed for [facility] [facility] [address] [place] [address] #### SPUTUME #### [facility] [address] [place] [address] Vacuum Cleaner Operator - Linda HERRING [id number] Eosinophils (Bld) [#/Vol] 0.16 10*3/uL Normal <=0.70 [facility] Comment on above: Performed By: #### G Wilmar, 62-7 #### [facility] [address] [place] [address] Vacuum Cleaner Operator - Linda HERRING [id number] Performed for [facility] [address] [place] [address] #### SPUTUME #### [facility] [address] [place] [address] Vacuum Cleaner Operator - Linda HERRING [id number] Eosinophils/100 WBC (Bld) 1.2 % Normal <=10.0 [facility] Comment on above: Performed By: #### G Wilmar, 627 #### [facility] [address] [place] [address] Vacuum Cleaner Operator - Linda HERRING [id number] Performed for [facility] [address] [place] [address] #### SPUTUME #### [facility] [address] [place] [address] Vacuum Cleaner Operator - Linda HERRING [id number] Erythrocyte distribution width (RBC) [Entitic vol] 48.6 fL High 36.4-46.3 [facility] Comment on above: Performed By: #### G Wilmar, 627 #### [facility] [address] [place] [address] Vacuum Cleaner Operator - Linda HERRING [id number] Performed for [facility] [address] [place] [address] #### SPUTUME #### [facility] [address] [place] [address] Vacuum Cleaner Operator - Linda HERRING [id number] Hematocrit (Bld) [Volume fraction] 37.9 % Normal 37.0-47.0 [facility] Comment on above: Performed By: #### Mariana Urban, 62-7 #### [facility] [address] [place] [address] Vacuum Cleaner Operator - Linda HERRING [id number] Performed for [facility] [address] [place] [address] #### SPUTUME #### [facility] [address] [place] [address] Vacuum Cleaner Operator - Linda HERRING [id number] Hemoglobin (Bld) [Mass/Vol] 11.5 g/dL Low 12.0-16.0 [facility] Comment on above: Performed By: #### Mariana Urban, 627 #### [place] [address] [place] [address] Vacuum Cleaner Operator - Linad HERRING [id number] Performed for [facility] [address] [place] [address] #### SPUTUME #### [place] [address] [place] [address] Vacuum Cleaner Operator - Linda HERRING [id number] Immature granulocytes (Bld) [#/Vol] 0.09 10*3/uL Normal <=0.10 [facility] Comment on above: Performed By: #### Mariana Urban, 627 #### [facility] [address] [place] [address] Vacuum Cleaner Operator - Linda HERRING [id number] Performed for [facility] [address] [place] [address] #### SPUTUME #### [facility] [address] [place] [address] Vacuum Cleaner Operator - Linda HERRING [id number] Immature granulocytes/100 WBC (Bld) 0.60 % Normal <=1.50 [facility] Comment on above: Performed By: #### Mariana Urban, 62-7 #### [facility] [address] [place] [address] Vacuum Cleaner Operator - Linda HERRING [id number] Performed for [facility] [address] [place] [address] #### SPUTUME #### [facility] [address] [place] [address] Vacuum Cleaner Operator - Linda HERRING [id number] Lymphocytes (Bld) [#/Vol] 2.38 10*3/uL Normal 1.20-3.40 [facility] Comment on above: Performed By: #### G S, 62-7 #### [facility] [address] [place] [address] Vacuum Cleaner Operator - Linda HERRING [id number] Performed for [facility] [address] [place] [address] #### SPUTUME #### [place] [address] [place] [address] Vacuum Cleaner Operator - Linda HERRING [id number] Lymphocytes/100 WBC (Bld) 17.1 % Low 20.0-40.0 [facility] Comment on above: Performed By: #### G S, 62-7 #### [facility] [address] [place] [address] Vacuum Cleaner Operator - Linda HERRING [id number] Performed for [facility] [address] [place] [address] #### SPUTUME #### [facility] [address] [place] [address] Vacuum Cleaner Operator - Linda HERRING [id number] MCH (RBC) [Entitic mass] 28.0 pg Normal 27.0-31.0 [facility] Comment on above: Performed By: #### G S, 624-7 #### [facility] [address] [place] [address] Vacuum Cleaner Operator - Linda HERRING [id number] Performed for [facility] [address] [place] [address] #### SPUTUME #### [facility] [address] [place] [address] Vacuum Cleaner Operator - Linda WEBBIA [id number] MCHC (RBC) [Mass/Vol] 30.3 g/dL Low 32.0-36.0 [facility] Comment on above: Performed By: #### Mariana Urban, 7 #### [facility] [address] [place] [address] Vacuum Cleaner Operator - Linda HERRING [id number] Performed for [facility] [address] [place] [address] #### SPUTUME #### [place] [address] [place] [address] Vacuum Cleaner Operator - Linda HERRING [id number] MCV (RBC) [Entitic vol] 92.2 fL Normal 80.0-100.0 [facility] Comment on above: Performed By: #### Mariana Urban 7 #### [place] [address] [place] [address] Vacuum Cleaner Operator - Linda HERRING [id number] Performed for [facility] [address] [place] [address] #### SPUTUME #### [place] [address] [place] [address] Vacuum Cleaner Operator - Linda HERRING [id number] Monocytes (Bld) [#/Vol] 1.04 10*3/uL High 0.10-0.60 [facility] Comment on above: Performed By: #### Mariana Urban 7 #### [facility] [address] [place] [address] Vacuum Cleaner Operator - Linda HERRING [id number] Performed for [facility] [address] [place] [address] #### SPUTUME #### [place] [address] [place] [address] Vacuum Cleaner Operator - Linda HERRING [id number] Monocytes/100 WBC (Bld) 7.5 % Normal <=8.0 [facility] Comment on above: Performed By: #### Mariana Urban, 7 #### [place] [address] [place] [address] Vacuum Cleaner Operator - Linda WEBBIA [id number] Performed for [facility] [address] [place] [address] #### SPUTUME #### [facility] [address] [place] [address] Vacuum Cleaner Operator - Linda WEBBIA [id number] Neutrophils (Bld) [#/Vol] 10.12 10*3/uL High 1.40-6.50 [facility] Comment on above: Performed By: #### G Wilmar, 624-7 #### [facility] [address] [place] [address] Vacuum Cleaner Operator - Linda WEBBIA [id number] Performed for [facility] [address] [place] [address] #### SPUTUME #### [place] [address] [place] [address] Vacuum Cleaner Operator - Linda WEBBIA [id number] Neutrophils/100 WBC (Bld) 72.9 % High 50.0-70.0 [facility] Comment on above: Performed By: #### Mariana Urban, 624-7 #### [place] [address] [place] [address] Vacuum Cleaner Operator - Linda WEBBIA [id number] Performed for [facility] [address] [place] [address] #### SPUTUME #### [place] [address] [place] [address] Vacuum Cleaner Operator - Linda WEBBIA [id number] Nucleated RBC (Bld) [#/Vol] 0.00 10*3/uL Normal <=0.10 [facility] Comment on above: Performed By: #### G S, 624-7 #### [place] [address] [place] [address] Vacuum Cleaner Operator - Linda HERRING [id number] Performed for [place] [address] [place] [address] #### SPUTUME #### [place] [address] [place] [address] Vacuum Cleaner Operator - Linda HERRING [id number] Platelet mean volume (Bld) [Entitic vol] 10.9 fL Normal 9.0-13.0 [facility] Comment on above: Performed By: #### Mariana Urban, 624-7 #### [facility] [address] [place] [address] Vacuum Cleaner Operator - Linda HERRING [id number] Performed for [facility] [address] [place] [address] #### SPUTUME #### [facility] [address] [place] [address] Vacuum Cleaner Operator - Linda HERRING [id number] Platelets (Bld) [#/Vol] 295 10*3/uL Normal 130-400 [facility] Comment on above: Performed By: #### Mariana Urban 624-7 #### [facility] [address] [place] [address] Vacuum Cleaner Operator - Linda HERRING [id number] Performed for [facility] [address] [place] [address] #### SPUTUME #### [facility] [address] [place] [address] Vacuum Cleaner Operator - Linda HERRING [id number] RBC (Bld) [#/Vol] 4.11 10*6/uL Normal 4.00-6.30 [facility] Comment on above: Performed By: #### Mariana Urban 624-7 #### [facility] [address] [place] [address] Vacuum Cleaner Operator - Linda HERRING [id number] Performed for [facility] [address] [place] [address] #### SPUTUME #### [facility] [address] [place] [address] Vacuum Cleaner Operator - Linda HERRING [id number] WBC (Bld) [#/Vol] 13.89 10*3/uL High 4.80-10.80 [facility] Comment on above: Performed By: #### G S, 624-7 #### [facility] [address] [place] [address] Vacuum Cleaner Operator - Linda HERRING [id number] Performed for [facility] [address] [place] [address] #### SPUTUME #### [facility] [address] [place] [address] Vacuum Cleaner Operator - Linda HERRING [id number] CHEST AP PORTABLEon 01-05-20 CHEST AP PORTABLE EXAM: CHEST AP DEBBY BLE HISTORY: Altered behavior COMPARISON: 07/15/2024 FINDINGS/IMPRESSION: 1. Marrufo juan pablo fixation of the thoracolumbar spine. Scoliotic curvature of the thoracic spine. Similar appearance as compared to the prior exam. 2. Gracile appearance of the ribs. 3. Limited visualization of the lung parenchyma due to rotation. No definitive lung consolidation. 4. Upper abdominal bowel gas pattern is nonspecific. Cholecystectomy. 5. No acute osseous abnormality. Normal [facility] Comprehensive metabolic 2000 panelon 01-04-2025 Albumin [Mass/Vol] 3.4 g/dL Normal 3.4-5.0 [facility] Comment on above: Performed By: #### U AR #### [facility] [address] [place] [address] Vacuum Cleaner Operator - Linda HERRING [id number] #### 630-4 #### [facility] [address] [place] [address] Vacuum Cleaner Operator - Linda HERRING [id number] Performed for [facility] [address] [place] [address] ALP [Catalytic activity/Vol] 173 U/L High 50-136 [facility] Comment on above: Performed By: #### U AR #### [facility] [address] [place] [address] Vacuum Cleaner Operator - Linda HERRING [id number] #### 630-4 #### [facility] [address] [place] [address] Vacuum Cleaner Operator - Linda HERRING [id number] Performed for [place] [address] [place], [place] [address] ALT [Catalytic activity/Vol] 24 U/L Normal 14-59 [facility] Comment on above: Performed By: #### U AR #### [facility] [address] [place] [address] Vacuum Cleaner Operator - Linda HERRING [id number] #### 630-4 #### [facility] [address] [place] [address] Vacuum Cleaner Operator - Linda HERRING [id number] Performed for [facility] [address] [place] [address] Anion gap [Moles/Vol] 6.0 mmol/L Normal <=15.0 [facility] Comment on above: Performed By: #### U AR #### [facility] [address] [place] [address] Vacuum Cleaner Operator - Linda HERRING [id number] #### 630-4 #### [facility] [address] [place] [address] Vacuum Cleaner Operator - Linda WEBBIA [id number] Performed for [facility] [address] [place] [address] AST [Catalytic activity/Vol] 19 U/L Normal 15-37 [facility] Comment on above: Performed By: #### U AR #### [facility] [address] [place] [address] Vacuum Cleaner Operator - Linda WEBBIA [id number] #### 630-4 #### [facility] [address] [place] [address] Vacuum Cleaner Operator - Linda HERRING [id number] Performed for [facility] [address] [place] [address] Bilirubin [Mass/Vol] mg/dL Normal 0.2-1.0 [facility] Comment on above: Performed By: #### U AR #### [facility] [address] [place] [address] Vacuum Cleaner Operator - Linda HERRING [id number] #### 630-4 #### [facility] [address] [place] [address] Vacuum Cleaner Operator - Linda HERRING [id number] Performed for [facility] [address] [place] [address] Calcium [Mass/Vol] 9.9 mg/dL Normal 8.5-10.1 [facility] Comment on above: Performed By: #### U AR #### [facility] [address] [place] [address] Vacuum Cleaner Operator - Linda HERRING [id number] #### 630-4 #### [facility] [address] [place] [address] Vacuum Cleaner Operator - Linda HERRING [id number] Performed for [facility] [address] [place] [address] Chloride [Moles/Vol] 103 mmol/L Normal 98-107 [facility] Comment on above: Performed By: #### U AR #### [facility] [address] [place] [address] Vacuum Cleaner Operator - Linda HERRING [id number] #### 630-4 #### [facility] [address] [place] [address] Vacuum Cleaner Operator - Linda HERRING [id number] Performed for [facility] [address] [place] [address] CO2 [Moles/Vol] 36 mmol/L High 21-32 [facility] Comment on above: Performed By: #### U AR #### [facility] [address] [place] [address] Vacuum Cleaner Operator - Linda HERRING [id number] #### 630-4 #### [facility] [address] [place] [address] Vacuum Cleaner Operator - Linda HERRING [id number] Performed for [facility] [address] [place] [address] Creatinine [Mass/Vol] 0.28 mg/dL Low 0.51-0.95 [facility] Comment on above: Performed By: #### U AR #### [facility] [address] [place] [address] Vacuum Cleaner Operator - Linda HERRING [id number] #### 630-4 #### [facility] [address] [place] [address] Vacuum Cleaner Operator - Linda HERRING [id number] Performed for [facility] [address] [place] [address] GFR/1.73 sq M.predicted MDRD (S/P/Bld) [Vol rate/Area] mL/min/{1.73_m2} Normal >=60 [facility] Comment on above: Performed By: #### U AR #### [facility] [address] [place] [address] Vacuum Cleaner Operator - Linda HERRING [id number] #### 630-4 #### [place] [address] [place] [address] Vacuum Cleaner Operator - Linda HERRING [id number] Performed for [facility] [address] [place] [address] Glucose [Mass/Vol] 95 mg/dL Normal 74-106 [facility] Comment on above: Performed By: #### U AR #### [place] [address] [place] [address] Vacuum Cleaner Operator - Linda HERRING [id number] #### 630-4 #### [place] [address] [place] [address] Vacuum Cleaner Operator - Linda HERRING [id number] Performed for [facility] [address] [place] [address] HGFR GLOMERULAR FILTRATIO N RATE INTERPRETATION~The eGFR is calculated using the MDRD equation.~This equation has been validated in patients with chronic kidney disease;~however, it underestimates the GFR in healthy patients with GFR's over 60 mL/min.~The equation is not valid in children under the age of 18.~NOTE: Criteria for Chronic Kidney Disease:~ ~1. Kidney damage for at least three months, as defined~by structural or functional abnormalities of the kidney,~with or without decreased glomerular filtration rate, manifested by either:~* Pathological abnormalities or~* Markers of Kidney damage, including abnormalities in~the composition of the blood or urine or abnormalities in imaging tests.~ ~2. GFR <60 mL/min/1.73 m squared for at least three months, with or without kidney damage.~ Normal [facility] Comment on above: Performed By: #### U AR #### [facility] [address] [place] [address] Vacuum Cleaner Operator - Linda Das CLIA [id number] #### 630-4 #### [facility] [address] [place] [address] [facility]uum Cleaner Operator [facility] [id number] Performed for [facility] [address] [place] [address] Potassium [Moles/Vol] 3.6 mmol/L Normal 3.5-5.1 [facility] Comment on above: Performed By: #### U AR #### [facility] [address] [place] [address] Vacuum Cleaner Operator - Linda Das CLIA [id number] #### 630-4 #### [facility] [address] [place] [address] Vacuum Cleaner Operator [facility] HospitalIA [id number] Performed for [facility] [address] [place] [address] Protein [Mass/Vol] 7.3 g/dL Normal 6.4-8.2 [facility] Comment on above: Performed By: #### U AR #### [facility] [address] [place] [address] Vacuum Cleaner Operator - [facility] HospitalIA [id number] #### 630-4 #### [facility] [address] [place] [address] Vacuum Cleaner Operator - [facility] [id number] Performed for [facility] [address] [place] [address] Sodium [Moles/Vol] 145 mmol/L Normal 136-145 [facility] Comment on above: Performed By: #### U AR #### [facility] [address] [place] [address] Vacuum Cleaner Operator - Linda WEBBIA [id number] #### 630-4 #### [facility] [address] [place] [address] Vacuum Cleaner Operator - Linda WEBBIA [id number] Performed for [facility] [address] [place] [address] Urea nitrogen [Mass/Vol] 17 mg/dL Normal 7-17 [facility] Comment on above: Performed By: #### U AR #### [facility] [address] [place] [address] Vacuum Cleaner Operator - Linda WEBBIA [id number] #### 630-4 #### [place] [address] [place] [address] Vacuum Cleaner Operator - Linda WEBBIA [id number] Performed for [facility] [address] [place] [address] LACTATEon 01-04-2025 Lactate [Moles/Vol] 1.6 mmol/L Normal 0.4-2.0 [facility] Comment on above: Performed By: #### G S, 624-7 #### [facility] [address] [place] [address] Vacuum Cleaner Operator - Linda WEBBIA [id number] Performed for [facility] [address] [place] [address] #### SPUTUME #### [facility] [address] [place] [address] Vacuum Cleaner Operator - Linda WEBBIA [id number] Lactate [Moles/Vol] 1.3 mmol/L Normal 0.4-2.0 [facility] Comment on above: Performed By: #### 5 7021-8 #### [facility] [address] [place] [address] Vacuum Cleaner Operator - Linda WEBBIA [id number] LIPASEon 01-04-2025 LIPASES 27 U/L Normal 13-75 [facility] Comment on above: Performed By: #### U AR #### [facility] [address] [place] [address] Vacuum Cleaner Operator - Linda WEBBIA [id number] #### 630-4 #### [facility] [address] [place] [address] Vacuum Cleaner Operator - Linda WEBBIA [id number] Performed for [facility] [address] [place] [address] MAGNESIUMon 01-04-2025 Magnesium [Mass/Vol] 2.2 mg/dL Normal 1.6-2.6 [facility] Comment on above: Performed By: #### U AR #### [facility] [address] [place] [address] Vacuum Cleaner Operator - Linda WEBBIA [id number] #### 630-4 #### [facility] [address] [place] [address] Vacuum Cleaner Operator - Linda WEBBIA [id number] Performed for [facility] [address] [place] [address] TROPONIN HIGH SENSITIVITYon 01-04-2025 TNIH <2.50 Normal <=59.00 [facility] Comment on above: Result Comment: <59 pg/mL is considered a negative result. Performed By: #### G Wilmar, 624-7 #### [facility] [address] [place] [address] Vacuum Cleaner Operator - Linda HERRING [id number] Performed for [facility] [address] [place] [address] #### SPUTUME #### [facility] [address] [place] [address] Vacuum Cleaner Operator - Linda HERRING [id number] TNIH <2.50 Normal <=59.00 [facility] Comment on above: Result Comment: <59 pg/mL is considered a negative result. Performed By: #### G S, 624-7 #### [facility] [address] [place] [address] Vacuum Cleaner Operator - Linda HERRING [id number] Performed for [facility] [address] [place] [address] #### SPUTUME #### [facility] [address] [place] [address] Vacuum Cleaner Operator - [facility] [id number] URINALYSIS with reflex to CU LTUREon 01-04-2025 Bacteria LM Ql (Urine sed) LARGE Abnormal TRACE [facility] Comment on above: Performed By: #### V ANCL #### [facility] [address] [place] [address] Vacuum Cleaner Operator - [place] [id number] Bilirubin (U) [Mass/Vol] Negative Normal NEGATIVE [facility] Comment on above: Performed By: #### V ANCL #### [facility] [address] [place] [address] Vacuum Cleaner Operator - [place] [id number] Clarity (U) TURBID Abnormal CLEAR [facility] Comment on above: Performed By: #### V ANCL #### [facility] [address] [address] Vacuum Cleaner Operator - [place] [id number] Color (U) YELLOW Normal YELLOW [facility] Comment on above: Performed By: #### V ANCL #### [facility] [address] [place] [address] Vacuum Cleaner Operator - [facility] [id number] Glucose Test strip (U) [Mass/Vol] Negative Normal NEGATIVE [facility] Comment on above: Performed By: #### V ANCL #### [place] [address] [place] [address] Vacuum Cleaner Operator - [facility] [id number] HMICRO MICROSCOPIC Normal [facility] Comment on above: Performed By: #### V ANCL #### [facility] [address] [place] [address] Vacuum Cleaner Operator - [facility] [id number] Hyaline casts (Urine sed) [#/Area] 10-20 Abnormal 0-8 [facility] Comment on above: Performed By: #### V ANCL #### [facility] [address] [place] [id number] Vacuum Cleaner Operator - Linda WEBBIA [id number] Ketones (U) [Mass/Vol] Negative Normal NEGATIVE [facility] Comment on above: Performed By: #### V ANCL #### [place] [address] Vacuum Cleaner Operator - Linda WEBBIA [id number] Leukocyte esterase Qn (U) 3+ Abnormal TRACE [facility] Comment on above: Performed By: #### V ANCL #### [place] [address] Vacuum Cleaner Operator - Linda Das CLIA [id number] Mucus Ql (Urine sed) SMALL Abnormal TRACE [facility] Comment on above: Performed By: #### V ANCL #### [place] [address] Vacuum Cleaner Operator - Linda Das CLIA [id number] Nitrite Ql (U) Positive Abnormal NEGATIVE [facility] Comment on above: Performed By: #### V ANCL #### [place] [address] Vacuum Cleaner Operator - Linda Das CLIA [id number] pH (U) 8.5 [pH] High 5.5-7.5 [facility] Comment on above: Performed By: #### V ANCL #### [place] [address] Vacuum Cleaner Operator - Linda Das CLIA [id number] Protein (U) [Mass/Vol] 1+ Abnormal NEGATIVE [facility] Comment on above: Performed By: #### V ANCL #### [place] [address] Vacuum Cleaner Operator - Linda Das CLIA [id number] RBC (U) [#/Vol] Negative Normal NEGATIVE [facility] Comment on above: Performed By: #### V ANCL #### [place] [address] Vacuum Cleaner Operator - Linda Das CLIA [id number] RBC LM.HPF (Urine sed) [#/Area] 4-10 Abnormal 0-4 [facility] Comment on above: Performed By: #### V ANCL #### [facility] [address] [facility] [place] [address] [facility]uum Cleaner [facility] [id number] Specific gravity (U) [Rel density] 1.025 Normal 1.010-1.035 [facility] Comment on above: Performed By: #### V ANCL #### [address] [place] [address] [facility]uum Cleaner Operator [facility] [id number] SQUAMOUS EPITHELIALS 0-5 Normal 0-5 [facility] Comment on above: Performed By: #### V ANCL #### [address] [place] [address] Vacuum Cleaner Operator [facility] [id number] Urobilinogen Qn (U) 0.2 {Sari'U}/dL Normal <=1.0 [facility] Comment on above: Performed By: #### V ANCL #### [address] [place] [address] Vacuum Cleaner Operator [facility] [id number] WBC LM.HPF (Urine sed) [#/Area] 100-900 Abnormal 0-5 [facility] Comment on above: Performed By: #### V ANCL #### [address] [place] [address] Vacuum Cleaner Operator [facility] [id number] VITAMIN A RETINOLon 12-29-19 25 Vitamin A 48.6 ug/dL Normal 18.9-57.3 [facility] Comment on above: Result Comment: Refe rence intervals for vitamin A determined from [facility] internal studies. Individuals with vitamin A less than 20 ug/dL are considered vitamin A deficient and those with serum concentrations less than 10 ug/dL are considered severely deficient. . This test was developed and its performance characteristics determined by [facility]. It has not been cleared or approved by the Food and Drug Administration. Performed By: #### G S, 624-7 #### [address], [place] [address] Vacuum Cleaner Operator - Linda HERRING [id number] Performed for [facility] [address] [place] [address] #### SPUTUME #### [facility] [address] [place] [address] Vacuum Cleaner Operator - Linda HERRING [id number] VITAMIN B1 THIAMINEon 2024 Vit. B1, Whole Blood 291.3 nmol/L High 66.5-200.0 [facility] Comment on above: Performed By: #### U AR #### [facility] [address] [place] [address] Vacuum Cleaner Operator - Linda HERRING [id number] #### 630-4 #### [facility] [address] [place] [address] Vacuum Cleaner Operator - Linda HERRING [id number] Performed for [facility] [address] [place] [address] VITAMIN B6on 12-27-2024 Vitamin B6 14.6 ug/L Normal 3.4-65.2 [facility] Comment on above: Result Comment: Defi ciency: <3.4 Marginal: 3.4 - 5.1 Adequate: >5.1 Performed By: #### 5 7021-8 #### [facility] [address] [place] [address] Vacuum Cleaner Operator - Linda HERRING [id number] ZINCon 12-27-2024 Zinc, Plasma or Serum 59 ug/dL Normal 44-115 [facility] Comment on above: Result Comment: Dete ction Limit = 5 Performed By: #### U AR #### [facility] [address] [place] [address] Vacuum Cleaner Operator - Linda HERRING [id number] #### 630-4 #### [facility] [address] [place] [address] Vacuum Cleaner Operator - Linda HERRING [id number] Performed for [facility] [address] [place] [address] CELIAC DISEASE Abson 025 Deamidated Gliadin Abs, IgA 36 units High 0-19 [facility] Comment on above: Result Comment: Nega tive 0 - 19 Weak Positive 20 - 30 Moderate to Strong Positive >30 Performed By: #### U AR #### [facility] [address] [place] [address] Vacuum Cleaner Operator - Linda HERRING [id number] #### 630-4 #### [facility] [address] [place] [address] Vacuum Cleaner Operator - Linda WEBBIA [id number] Performed for [facility] [address] [place] [address] Deamidated Gliadin Abs, IgG 9 units Normal 0-19 [facility] Comment on above: Result Comment: Nega tive 0 - 19 Weak Positive 20 - 30 Moderate to Strong Positive >30 Performed By: #### U AR #### [facility] [address] [place] [address] Vacuum Cleaner Operator - Linda HERRING [id number] #### 630-4 #### [facility] [address] [place] [address] Vacuum Cleaner Operator - Linda HERRING [id number] Performed for [facility] [address] [place] [address] Endomysial Antibody IgA Negative Normal Negative [facility] Comment on above: Performed By: #### U AR #### [facility] [address] [place] [address] Vacuum Cleaner Operator - Linda HERRING [id number] #### 630-4 #### [facility] [address] [place] [address] Vacuum Cleaner Operator - Linda HERRING [id number] Performed for [facility] [address] [place] [address] Immunoglobulin A, Qn, Serum 381 mg/dL High 87-352 [facility] Comment on above: Performed By: #### U AR #### [facility] [address] [place] [address] Vacuum Cleaner Operator - Linda HERRING [id number] #### 630-4 #### [facility] [address] [place] [address] Vacuum Cleaner Operator - [facility]East [facility] HospitalIA [id number] Performed for [facility] [address] [place] [address] t-Transglutaminase (tTG) IgA 3 U/mL Normal 0-3 [facility] Comment on above: Result Comment: Nega tive 0 - 3 Weak Positive 4 - 10 Positive >10 . Tissue Transglutaminase (tTG) has been identified as the endomysial antigen. Studies have demonstr- ated that endomysial IgA antibodies have over 99% specificity for gluten sensitive enteropathy. Performed By: #### U AR #### [facility] [address] [place] [address] Vacuum Cleaner Operator - Linda [facility] [id number] #### 630-4 #### [facility] [address] [place] [address] Vacuum Cleaner Operator - [facility] [id number] Performed for [facility] [address] [place] [address] t-Transglutaminase (tTG) IgG 4 U/mL Normal 0-5 [facility] Comment on above: Result Comment: Nega tive 0 - 5 Weak Positive 6 - 9 Positive >9 Performed By: #### U AR #### [facility] [address] [place] [address] Vacuum Cleaner Operator - Linda DasACMH Hospital [id number] #### 630-4 #### [place] [address] [place] [address] Vacuum Cleaner Operator - [facility] [id number] Performed for [facility] [address] [place] [address] VITAMIN C ABSORBIC ACIDon Vitamin C 1.0 mg/dL Normal 0.4-2.0 [facility] Comment on above: Result Comment: Jayshree min C deficiency is generally defined as plasma concentrations less than 0.2 mg/dL and levels between 0.2 and 0.4 mg/dL are considered low. Performed By: #### G S, 624-7 #### [facility] [address] [place] [address] Vacuum Cleaner Operator - Linda HERRING [id number] Performed for [facility] [address] [place] [address] #### SPUTUME #### [place] [address] [place] [address] Vacuum Cleaner Operator - Linda [id number] FOLATE -SEND OUTon Folate [Mass/Vol] ng/mL Normal >3.0 [facility] Comment on above: Result Comment: A se rum folate concentration of less than 3.1 ng/mL is considered to represent clinical deficiency. Performed By: #### U AR #### [place] [address] [place] [address] Vacuum Cleaner Operator - Linda HERRING [id number] #### 630-4 #### [place] [address] [place] [address] Vacuum Cleaner Operator - Linda HERRING [id number] Performed for [place] [address] [place] [address] 25-hydroxyvitamin D [Mass/Vo l]on 12-21-2024 25-hydroxyvitamin D3 [Mass/Vol] 93.3 ng/mL Normal 30.0-100.0 [facility] Comment on above: Performed By: #### G S, 624-7 #### [place] [address] [place] [address] Vacuum Cleaner Operator - Linda HERRING [id number] Performed for [place] [address] [place] [address] #### SPUTUME #### [place] [address] [place] [address] Vacuum Cleaner Operator - Linda HERRING [id number] HVITD VITAMIN D INTERPRETA TION VITAMIN D STATUS RANGE DEFICIENCY <20 ng/mL INSUFFICIENCY 20-30 ng/mL SUFFICIENCY 30-100 ng/mL TOXICITY >100 ng/mL Normal [facility] Comment on above: Performed By: #### Mariana Urban, 624-7 #### [facility] [address] [place] [address] Vacuum Cleaner Operator - Linda HERRING [id number] Performed for [facility] [address] [place] [address] #### SPUTUME #### [place] [address] [place] [address] Vacuum Cleaner Operator - Linda HERRING [id number] Basic metabolic 2000 panelon 12-21-2024 Anion gap [Moles/Vol] 5.0 mmol/L Normal <=15.0 [facility] Comment on above: Performed By: #### Mariana Urban, 627 #### [place] [address] [place] [address] Vacuum Cleaner Operator - Linda HERRING [id number] Performed for [facility] [address] [place] [address] #### SPUTUME #### [place] [address] [place] [address] Vacuum Cleaner Operator - Linda HERRING [id number] Calcium [Mass/Vol] 9.4 mg/dL Normal 8.5-10.1 [facility] Comment on above: Performed By: #### Mariana Urban, 62-7 #### [facility] [address] [place] [address] Vacuum Cleaner Operator - Linda HERRING [id number] Performed for [facility] [address] [place] [address] #### SPUTUME #### [place] [address] [place] [address] Vacuum Cleaner Operator - Linda HERRING [id number] Chloride [Moles/Vol] 101 mmol/L Normal 98-107 [facility] Comment on above: Performed By: #### Mariana Urban, 627 #### [facility] [address] [place] [address] Vacuum Cleaner Operator - Linda WEBBIA [id number] Performed for [facility] [address] [place] [address] #### SPUTUME #### [facility] [address] [place] [address] Vacuum Cleaner Operator - Linda HERRING [id number] CO2 [Moles/Vol] 34 mmol/L High 21-32 [facility] Comment on above: Performed By: #### G S, 7 #### [facility] [address] [place] [address] Vacuum Cleaner Operator - Linda HERRING [id number] Performed for [facility] [address] [place] [address] #### SPUTUME #### [facility] [address] [place] [address] Vacuum Cleaner Operator - Linda HERRING [id number] Creatinine [Mass/Vol] 0.24 mg/dL Low 0.51-0.95 [facility] Comment on above: Performed By: #### G Wilmar, 7 #### [facility] [address] [place] [address] Vacuum Cleaner Operator - Linda HERRING [id number] Performed for [facility] [address] [place] [address] #### SPUTUME #### [facility] [address] [place] [address] Vacuum Cleaner Operator - Linda HERRING [id number] GFR/1.73 sq M.predicted MDRD (S/P/Bld) [Vol rate/Area] mL/min/{1.73_m2} Normal >=60 [facility] Comment on above: Performed By: #### G S, 7 #### [facility] [address] [place] [address] Vacuum Cleaner Operator - Linda HERRING [id number] Performed for [facility] [address] [place] [address] #### SPUTUME #### [facility] [address] [place] [address] Vacuum Cleaner Operator - Linda HERRING [id number] Glucose [Mass/Vol] 90 mg/dL Normal 74-106 [facility] Comment on above: Performed By: #### G S, 624-7 #### [facility] [address] [place] [address] Vacuum Cleaner Operator - Linda HERRING [id number] Performed for [facility] [address] [place] [address] #### SPUTUME #### [facility] [address] [place] [address] Vacuum Cleaner Operator - Linda HERRING [id number] HGFR GLOMERULAR FILTRATIO N RATE INTERPRETATION~The eGFR is calculated using the MDRD equation.~This equation has been validated in patients with chronic kidney disease;~however, it underestimates the GFR in healthy patients with GFR's over 60 mL/min.~The equation is not valid in children under the age of 18.~NOTE: Criteria for Chronic Kidney Disease:~ ~1. Kidney damage for at least three months, as defined~by structural or functional abnormalities of the kidney,~with or without decreased glomerular filtration rate, manifested by either:~* Pathological abnormalities or~* Markers of Kidney damage, including abnormalities in~the composition of the blood or urine or abnormalities in imaging tests.~ ~2. GFR <60 mL/min/1.73 m squared for at least three months, with or without kidney damage.~ Normal [facility] Comment on above: Performed By: #### G S, 624-7 #### [facility] [address] [place] [address] Vacuum Cleaner Operator - Linda HERRING [id number] Performed for [facility] [address] [place] [address] #### SPUTUME #### [facility] [address] [place] [address] Vacuum Cleaner Operator - Linda HERRING [id number] Potassium [Moles/Vol] 3.9 mmol/L Normal 3.5-5.1 [facility] Comment on above: Performed By: #### G Wilmar, 624-7 #### [facility] [address] [place] [address] Vacuum Cleaner Operator - Linda HERRING [id number] Performed for [facility] [address] [place] [address] #### SPUTUME #### [facility] [address] [place] [address] Vacuum Cleaner Operator - Linda HERRING [id number] Sodium [Moles/Vol] 140 mmol/L Normal 136-145 [facility] Comment on above: Performed By: #### G Wilmar, 624-7 #### [facility] [address] [place] [address] Vacuum Cleaner Operator - Linda HERRING [id number] Performed for [facility] [address] [place] [address] #### SPUTUME #### [facility] [address] [place] [address] Vacuum Cleaner Operator - Linda HERRING [id number] Urea nitrogen [Mass/Vol] 18 mg/dL High 7-17 [facility] Comment on above: Performed By: #### Mariana Urban, 624-7 #### [facility] [address] [place] [address] Vacuum Cleaner Operator - Linda HERRING [id number] Performed for [facility] [address] [place] [address] #### SPUTUME #### [facility] [address] [place] [address] Vacuum Cleaner Operator - Linda HERRING [id number] HbA1c Calc (Bld) [Mass fract ion]on 12-21-2024 Average glucose Estimated from glycated hemoglobin (Bld) [Mass/Vol] 103 mg/dL Normal 68-125 [facility] Comment on above: Performed By: #### V ANCL #### [facility] [address] [place] [address] Vacuum Cleaner Operator - Linda HERRING [id number] HA1C A1C INTERPRETATION % A1c (NGSP) Interpretation <5.7 Non-Diabetic Range 5.7 - 6.4 Prediabetic >6.5 Action Suggested The eAG (estimated average glucose) is an estimation of one?s average blood glucose level, calculated based on A1C test results, reported using the same units (mg/dL) seen on blood glucose meters. Normal [facility] Comment on above: Performed By: #### V ANCL #### [facility] [address] [place] [address] Vacuum Cleaner Operator - Linda HERRING [id number] HbA1c (Bld) [Mass fraction] 5.2 %A1C Normal 4.2-6.3 [facility] Comment on above: Performed By: #### V ANCL #### [place] [address] [place] [address] Vacuum Cleaner Operator - Linda HERRING [id number] TSH DL <= 0.05 mIU/L Qnon TSH Qn 4.875 uIU/mL High 0.358-3.740 [facility] Comment on above: Performed By: #### G S, 624-7 #### [facility] [address] [place] [address] Vacuum Cleaner Operator - Linda HERRING [id number] Performed for [facility] [address] [place] [address] #### SPUTUME #### [place] [address] [place] [address] Vacuum Cleaner Operator - Linda HERRING [id number] VITAMIN B12on 12-21-2024 Cobalamin (Vitamin B12) [Mass/Vol] 930 pg/mL Normal 254-1320 [facility] Comment on above: Performed By: #### G S, 624-7 #### [facility] [address] [place] [address] Vacuum Cleaner Operator - Linda HERRING [id number] Performed for [facility] [address] [place] [address] #### SPUTUME #### [facility] [address] [place] [address] Vacuum Cleaner Operator - Linda HERRING [id number] C REACTIVE PROTEINon 025 CRP [Mass/Vol] 15 mg/L High <=10 [facility] Comment on above: Performed By: #### G Wilmar, 624-7 #### [facility] [address] [place] [address] Vacuum Cleaner Operator - Linda HERRING [id number] Performed for [facility] [address] [place] [address] #### SPUTUME #### [facility] [address] [place] [address] Vacuum Cleaner Operator - Linda HERRING [id number] CRP [Mass/Vol]on 09-29-2024 HCRP CRP INTERPRETATION A single CRP determination is of limited diagnostic value while serial determinations help in establishing the trend of an ongoing inflammatory process. CRP values must be interpreted together with other clinical symptoms. Normal values should only be used as a guide. Normal [facility] Comment on above: Performed By: #### G Wilmar, 62-7 #### [facility] [address] [place] [address] Vacuum Cleaner Operator - Linda HERRING [id number] Performed for [facility] [address] [place] [address] #### SPUTUME #### [facility] [address] [place] [address] Vacuum Cleaner Operator - Linda HERRING [id number] SEDIMENTATION RATEon 025 ESR (Bld) [Velocity] 63 mm/h High 2-15 [facility] Comment on above: Performed By: #### U AR #### [facility] [address] [place] [address] Vacuum Cleaner Operator - Linda HERRING [id number] #### 630-4 #### [facility] [address] [place] [address] Vacuum Cleaner Operator - Linda HERRING [id number] Performed for [facility] [address] [place] [address] QUE 1 DRUGon 09-27-2024 Antimicrobial Susceptibility Comment Normal [facility] Comment on above: Result Comment: S = Susceptible; I = Intermediate; R = Resistant P = Positive; N = Negative MICS are expressed in micrograms per mL Antibiotic RSLT#1 RSLT#2 RSLT#3 RSLT#4 Cefepime S Performed By: #### G S, 624-7 #### [facility] [address] [place] [address] Vacuum Cleaner Operator - [employer]IA [id number] Performed for [facility] [address] [place] [address] #### SPUTUME #### [facility] [address] [place] [address] Vacuum Cleaner Operator - [employer] [id number] Min Inhibitory Conc (1 Drug) Final report Normal [facility] Comment on above: Performed By: #### G Wilmar, 624-7 #### [facility] [address] [place] [address] Vacuum Cleaner Operator - [employer] [id number] Performed for [facility] [address] [place] [address] #### SPUTUME #### [facility] [address] [place] [address] Vacuum Cleaner Operator - [employer] [id number] Result 1 Comment Normal [facility] Comment on above: Result Comment: Pseu domonas aeruginosa Identification performed by account, not confirmed by this laboratory. Performed By: #### G Wilmar, 624-7 #### [facility] [address] [place] [address] Vacuum Cleaner Operator - [employer] [id number] Performed for [facility] [address] [place] [address] #### SPUTUME #### [facility] [address] [place] [address] Vacuum Cleaner Operator - [employer] [id number] CULTURE ROUTINEon 09-20-2024 Bacteria identified Aer cx Nom (Wound) PSEUDOMONAS AERUGINOSA SENT TO REFERENCE LAB FOR CEFEPIME SUSCEPTIBILITY Escherichia coli MODERATE GROWTH MODERATE GROWTH ORGANISM: Isolate 1 ANTIBIOTIC INTERP QUE Ampicillin R >=32 R >=32 Piperacillin/Tazobactam S <=4 I 16 I 16 Cefepime S <=0.12 Meropenem S <=0.25 Gentamicin S <=1 Tobramycin S <=1 Ciprofloxacin S <=0.25 Levofloxacin S <=0.12 Tetracycline S <=1 Trimethoprim/Sulfamethox azole S <=20 ESBL Neg Neg Cefotaxime S <=0.25 ORGANISM: Isolate 2 ANTIBIOTIC INTERP QUE Ampicillin S <=2 S <=2 Piperacillin/Tazobactam S <=4 S <=1 S <=1 Ceftriaxone S <=0.25 Cefepime S <=0.12 Meropenem S <=0.25 Gentamicin S <=1 Tobramycin S <=1 Ciprofloxacin S <=0.25 Levofloxacin S <=0.12 Tetracycline R >=16 Trimethoprim/Sulfamethox azole S <=20 ORGANISM: Isolate 3 ANTIBIOTIC INTERP QUE Piperacillin/Tazobactam S 8 Imipenem R >=16 Meropenem I 4 Amikacin S 4 Gentamicin S 4 Tobramycin S <=1 Ciprofloxacin R >=4 Levofloxacin R 4 Normal [facility] Comment on above: Performed By: #### G S, 624-7 #### [place] [address] Vacuum Cleaner Operator - [facility] [id number] Performed for [place] [address] #### SPUTUME #### [address] [place] [address] Vacuum Cleaner Operator [facility] [id number] CULTURE ROUTINEon 08-18-2024 Bacteria identified Aer cx Nom (Wound) Enterobacter cloacae complex HEAVY GROWTH ORGANISM: Isolate 1 ANTIBIOTIC INTERP QUE Ampicillin S <=2 S <=2 Piperacillin/Tazobactam R >=128 S <=1 R >=64 Ceftriaxone S <=0.25 Cefepime S 2 Meropenem R 4 Gentamicin I 8 Tobramycin I 8 Ciprofloxacin R >=4 Levofloxacin S <=0.12 Tetracycline S 4 Trimethoprim/Sulfamethox azole R >=320 Imipenem S 4 ORGANISM: Isolate 2 ANTIBIOTIC INTERP QUE Piperacillin/Tazobactam S <=4 S <=1 Cefepime S <=0.12 Imipenem S 0.5 Meropenem S <=0.25 Gentamicin S <=1 Tobramycin S <=1 Ciprofloxacin S <=0.25 Tetracycline R >=16 Trimethoprim/Sulfamethox azole S <=20 Ampicillin S <=2 S <=2 S <=1 Ceftriaxone S <=0.25 Levofloxacin S <=0.12 Normal [facility] Comment on above: Performed By: #### G S, 624-7 #### [facility] [address] [place] [address] Vacuum Cleaner Operator - [employer]EVAEH [id number] Performed for [facility] [address] [place] [address] #### SPUTUME #### [place] [address] [place] [address] Vacuum Cleaner Operator - Schrodingeralison HERRING [id number] CULTURE BLOODon 07-20-2024 Bacteria identified Cx Nom (Bld) NO GROWTH OBSERVED AFTER 5 DAYS Normal [facility] Comment on above: Performed By: #### G Wilmar, 624-7 #### [facility] [address] [place] [address] Vacuum Cleaner Operator - [employer] BiosciencesCORBY [id number] Performed for [facility] [address] [place] [address] #### SPUTUME #### [facility] [address] [place] [address] Vacuum Cleaner Operator - Gn[employer] [id number] QUE 1 DRUGon 07-20-2024 Antimicrobial Susceptibility Comment Normal [facility] Comment on above: Result Comment: S = Susceptible; I = Intermediate; R = Resistant P = Positive; N = Negative MICS are expressed in micrograms per mL Antibiotic RSLT#1 RSLT#2 RSLT#3 RSLT#4 Aztreonam R Cefepime I Performed By: #### U AR #### [facility] [address] [place] [address] Vacuum Cleaner Operator - Schrodinger[employer]BY [id number] #### 630-4 #### [facility] [address] [place] [address] Vacuum Cleaner Operator - Linda WEBBIA [id number] Performed for [facility] [address] [place] [address] Min Inhibitory Conc (1 Drug) Final report Normal [facility] Comment on above: Performed By: #### U AR #### [facility] [address] [place] [address] Vacuum Cleaner Operator - Linda WEBBIA [id number] #### 630-4 #### [facility] [address] [place] [address] Vacuum Cleaner Operator - Linda WEBBIA [id number] Performed for [facility] [address] [place] [address] Result 1 Comment Normal [facility] Comment on above: Result Comment: Pseu domonas aeruginosa Identification performed by account, not confirmed by this laboratory. Performed By: #### U AR #### [facility] [address] [place] [address] Vacuum Cleaner Operator - Linda WEBBIA [id number] #### 630-4 #### [facility] [address] [place] [address] Vacuum Cleaner Operator - Linda WEBBIA [id number] Performed for [facility] [address] [place] [address] CBC W Auto Differential pane l (Bld)on 07-19-2024 Basophils (Bld) [#/Vol] 0.13 10*3/uL Normal <=0.70 [facility] Comment on above: Performed By: #### V ANCL #### [facility] [address] [place] [address] Vacuum Cleaner Operator - Linda WEBBIA [id number] Basophils/100 WBC (Bld) 1.3 % Normal <=2.0 [facility] Comment on above: Performed By: #### V ANCL #### [facility] [address] [place] [address] Vacuum Cleaner Operator - Linda Das CLIA [id number] Eosinophils (Bld) [#/Vol] 0.16 10*3/uL Normal <=0.70 [facility] Comment on above: Performed By: #### V ANCL #### [place] [address] Vacuum Cleaner Operator - Linda WEBBIA [id number] Eosinophils/100 WBC (Bld) 1.5 % Normal <=10.0 [facility] Comment on above: Performed By: #### V ANCL #### [place] [address] Vacuum Cleaner Operator - Linda WEBBIA [id number] Erythrocyte distribution width (RBC) [Entitic vol] 48.7 fL High 36.4-46.3 [facility] Comment on above: Performed By: #### V ANCL #### [place] [address] Vacuum Cleaner Operator - Linda WEBBIA [id number] Hematocrit (Bld) [Volume fraction] 34.9 % Low 37.0-47.0 [facility] Comment on above: Performed By: #### V ANCL #### [address] Director - Linda Das CLIA [id number] Hemoglobin (Bld) [Mass/Vol] 11.2 g/dL Low 12.0-16.0 [facility] Comment on above: Performed By: #### V ANCL #### [place] [address] Vacuum Cleaner Operator - Linda Das CLIA [id number] Immature granulocytes (Bld) [#/Vol] 0.05 10*3/uL Normal <=0.10 [facility] Comment on above: Performed By: #### V ANCL #### [place] [address] Vacuum Cleaner Operator - Linda Das CLIA [id number] Immature granulocytes/100 WBC (Bld) 0.50 % Normal <=1.50 [facility] Comment on above: Performed By: #### V ANCL #### [place] [address] [place] [address] Vacuum Cleaner Operator - Linda WEBBIA [id number] Lymphocytes (Bld) [#/Vol] 2.13 10*3/uL Normal 1.20-3.40 [facility] Comment on above: Performed By: #### V ANCL #### [address] [place] [address] Vacuum Cleaner Operator - Linda Das CLIA [id number] Lymphocytes/100 WBC (Bld) 20.6 % Normal 20.0-40.0 [facility] Comment on above: Performed By: #### V ANCL #### [address] [place] [address] Vacuum Cleaner Operator - Linda WEBBIA [id number] MCH (RBC) [Entitic mass] 29.6 pg Normal 27.0-31.0 [facility] Comment on above: Performed By: #### V ANCL #### [address] [place] [address] [employer] - Linda WEBBIA [id number] MCHC (RBC) [Mass/Vol] 32.1 g/dL Normal 32.0-36.0 [facility] Comment on above: Performed By: #### V ANCL #### [address] [place] [address] [employer] - Linda WEBBIA [id number] MCV (RBC) [Entitic vol] 92.3 fL Normal 80.0-100.0 [facility] Comment on above: Performed By: #### V ANCL #### [address] [place] [address] [employer] Operator - Linda Das CLIA [id number] Monocytes (Bld) [#/Vol] 1.05 10*3/uL High 0.10-0.60 [facility] Comment on above: Performed By: #### V ANCL #### [address] [place] [address] [employer]er Operator - Linda Das CLIA [id number] Monocytes/100 WBC (Bld) 10.2 % High <=8.0 [facility] Comment on above: Performed By: #### V ANCL #### [place] [address] [employer] Operator - Linda Das CLIA [id number] Neutrophils (Bld) [#/Vol] 6.82 10*3/uL High 1.40-6.50 [facility] Comment on above: Performed By: #### V ANCL #### [place] [address] [employer] Cleaner Operator - Linda Das CLIA [id number] Neutrophils/100 WBC (Bld) 65.9 % Normal 50.0-70.0 [facility] Comment on above: Performed By: #### V ANCL #### [place] [address] [employer] Operator - Linda Das CLIA [id number] Nucleated RBC (Bld) [#/Vol] 0.00 10*3/uL Normal <=0.10 [facility] Comment on above: Performed By: #### V ANCL #### [place] [address] [employer] Operator - Linda Das CLIA [id number] Platelet mean volume (Bld) [Entitic vol] 10.9 fL Normal 9.0-13.0 [facility] Comment on above: Performed By: #### V ANCL #### [place] [address] [employer] Operator - Linda Das CLIA [id number] Platelets (Bld) [#/Vol] 192 10*3/uL Normal 130-400 [facility] Comment on above: Performed By: #### V ANCL #### [place] [address] [employer] Operator - Linda WEBBIA [id number] RBC (Bld) [#/Vol] 3.78 10*6/uL Low 4.00-6.30 [facility] Comment on above: Performed By: #### V ANCL #### [facility] [address] [place] [address] [employer] Operator - Linda WEBBIA [id number] WBC (Bld) [#/Vol] 10.34 10*3/uL Normal 4.80-10.80 [facility] Comment on above: Performed By: #### V ANCL #### [facility] [address] [place] [address] [employer] Operator - Linda WEBBIA [id number] Comprehensive metabolic 2000 panelon 07-19-2024 Albumin [Mass/Vol] 2.8 g/dL Low 3.4-5.0 [facility] Comment on above: Performed By: #### V ANCL #### [facility] [address] [place] [address] [employer] Operator - Linda WEBBIA [id number] ALP [Catalytic activity/Vol] 137 U/L High 50-136 [facility] Comment on above: Performed By: #### V ANCL #### [facility] [address] [place] [address] [employer]er Operator - Linda Das CLIA [id number] ALT [Catalytic activity/Vol] 29 U/L Normal 14-59 [facility] Comment on above: Performed By: #### V ANCL #### [facility] [address] [place] [address] [employer]er Operator - Linda Das CLIA [id number] Anion gap [Moles/Vol] 8.0 mmol/L Normal <=15.0 [facility] Comment on above: Performed By: #### V ANCL #### [facility] [address] [place] [address] [employer] Operator - Linda Das CLIA [id number] AST [Catalytic activity/Vol] 22 U/L Normal 15-37 [facility] Comment on above: Performed By: #### V ANCL #### [facility] [address] [place] [address] Vac[employer]er Operator - Linda Das CLIA [id number] Bilirubin [Mass/Vol] 0.2 mg/dL Normal 0.2-1.0 [facility] Comment on above: Performed By: #### V ANCL #### [facility] [address] [place] [address] [employer]er Operator - Linda Das CLIA [id number] Calcium [Mass/Vol] 9.6 mg/dL Normal 8.5-10.1 [facility] Comment on above: Performed By: #### V ANCL #### [facility] [address] [place] [address] [employer] Operator - Linda Das CLIA [id number] Chloride [Moles/Vol] 97 mmol/L Low 98-107 [facility] Comment on above: Performed By: #### V ANCL #### [address] [place] [address] Vac[employer]er Operator - Linda Das CLIA [id number] CO2 [Moles/Vol] 34 mmol/L High 21-32 [facility] Comment on above: Performed By: #### V ANCL #### [address] [place] [address] [employer]er Operator - Linda Das CLIA [id number] Creatinine [Mass/Vol] 0.22 mg/dL Low 0.51-0.95 [facility] Comment on above: Performed By: #### V ANCL #### [address] [place] [address] Vac[employer]er Operator - Linda Das CLIA [id number] GFR/1.73 sq M.predicted MDRD (S/P/Bld) [Vol rate/Area] mL/min/{1.73_m2} Normal >=60 [facility] Comment on above: Performed By: #### V ANCL #### [address] [place] [address] Vac[employer]er Operator - Linda Das CLIA [id number] Glucose [Mass/Vol] 136 mg/dL High 74-106 [facility] Comment on above: Performed By: #### V ANCL #### [address] [place] [address] Vac[employer]er Operator - Linda WEBBIA [id number] HGFR GLOMERULAR FILTRATIO N RATE INTERPRETATION~The eGFR is calculated using the MDRD equation.~This equation has been validated in patients with chronic kidney disease;~however, it underestimates the GFR in healthy patients with GFR's over 60 mL/min.~The equation is not valid in children under the age of 18.~NOTE: Criteria for Chronic Kidney Disease:~ ~1. Kidney damage for at least three months, as defined~by structural or functional abnormalities of the kidney,~with or without decreased glomerular filtration rate, manifested by either:~* Pathological abnormalities or~* Markers of Kidney damage, including abnormalities in~the composition of the blood or urine or abnormalities in imaging tests.~ ~2. GFR <60 mL/min/1.73 m squared for at least three months, with or without kidney damage.~ Normal [facility] Comment on above: Performed By: #### V ANCL #### [address] [place] [address] Vac[employer] Cleaner Operator - Linda WEBBIA [id number] Potassium [Moles/Vol] 3.6 mmol/L Normal 3.5-5.1 [facility] Comment on above: Performed By: #### V ANCL #### [address] [place] [address] Vac[employer]er Operator - Linda WEBBIA [id number] Protein [Mass/Vol] 6.2 g/dL Low 6.4-8.2 [facility] Comment on above: Performed By: #### V ANCL #### [address] [place] [address] [employer] [facility] [id number] Sodium [Moles/Vol] 139 mmol/L Normal 136-145 [facility] Comment on above: Performed By: #### V ANCL #### [address] [place] [address] Vacuum Cleaner Operator - Linda WEBBIA [id number] Urea nitrogen [Mass/Vol] 16 mg/dL Normal 7-17 [facility] Comment on above: Performed By: #### V ANCL #### [facility] [address] [place] [address] Vac[employer]er Operator - Linda HERRING [id number] GLUCOSE BY METERon Glucose [Mass/Vol] 116 mg/dL High 65-110 [facility] Comment on above: Performed By: #### V ANCL #### [facility] [address] [place] [address] [employer]er Operator - Linda HERRING [id number] CBC W Auto Differential pane l (Bld)on 07-18-2024 Basophils (Bld) [#/Vol] 0.10 10*3/uL Normal <=0.70 [facility] Comment on above: Performed By: #### U AR #### [facility] [address] [place] [address] [employer]er Operator - Linda HERRING [id number] #### 630-4 #### [facility] [address] [place] [address] Vacuum Cleaner Operator - Linda HERRING [id number] Performed for [facility] [address] [place] [address] Basophils/100 WBC (Bld) 0.9 % Normal <=2.0 [facility] Comment on above: Performed By: #### U AR #### [facility] [address] [place] [address] [employer]er Operator - Linda HERRING [id number] #### 630-4 #### [facility] [address] [place] [address] Vacuum Cleaner Operator - Linda HERRING [id number] Performed for [facility] [address] [place] [address] Eosinophils (Bld) [#/Vol] 0.18 10*3/uL Normal <=0.70 [facility] Comment on above: Performed By: #### U AR #### [facility] [address] [place] [address] [employer]er Operator - Linda HERRING [id number] #### 630-4 #### [facility] [address] [place] [address] Vac[employer] Cleaner Operator - Linda HERRING [id number] Performed for [facility] [address] [place] [address] Eosinophils/100 WBC (Bld) 1.6 % Normal <=10.0 [facility] Comment on above: Performed By: #### U AR #### [facility] [address] [place] [address] [employer]er Operator - Linda HERRING [id number] #### 630-4 #### [facility] [address] [place] [address] Vac[employer] Cleaner Operator - Linda HERRING [id number] Performed for [facility] [address] [place] [address] Erythrocyte distribution width (RBC) [Entitic vol] 50.5 fL High 36.4-46.3 [facility] Comment on above: Performed By: #### U AR #### [facility] [address] [place] [address] [employer]er Operator - Linda HERRING [id number] #### 630-4 #### [facility] [address] [place] [address] Vac[employer] Cleaner Operator - Linda HERRING [id number] Performed for [facility] [address] [place] [address] Hematocrit (Bld) [Volume fraction] 33.4 % Low 37.0-47.0 [facility] Comment on above: Performed By: #### U AR #### [facility] [address] [place] [address] [employer] Operator - Linda HERRING [id number] #### 630-4 #### [facility] [address] [place] [address] [employer]er Operator - Linda HERRING [id number] Performed for [facility] [address] [place] [address] Hemoglobin (Bld) [Mass/Vol] 10.3 g/dL Low 12.0-16.0 [facility] Comment on above: Performed By: #### U AR #### [facility] [address] [place] [address] [employer] Operator - Linda WEBBIA [id number] #### 630-4 #### [facility] [address] [place] [address] [employer]er Operator - Linda WEBBIA [id number] Performed for [facility] [address] [place] [address] Immature granulocytes (Bld) [#/Vol] 0.05 10*3/uL Normal <=0.10 [facility] Comment on above: Performed By: #### U AR #### [facility] [address] [place] [address] [employer]er Operator - Linda WEBBIA [id number] #### 630-4 #### [facility] [address] [place] [address] Vac[employer] Cleaner Operator - Linda WEBBIA [id number] Performed for [facility] [address] [place] [address] Immature granulocytes/100 WBC (Bld) 0.50 % Normal <=1.50 [facility] Comment on above: Performed By: #### U AR #### [place] [address] [place] [address] [employer] Operator - Linda WEBBIA [id number] #### 630-4 #### [facility] [address] [place] [address] Vac[employer]er Operator - Linda WEBBIA [id number] Performed for [facility] [address] [place] [address] Lymphocytes (Bld) [#/Vol] 1.99 10*3/uL Normal 1.20-3.40 [facility] Comment on above: Performed By: #### U AR #### [facility] [address] [place] [address] [employer]er Operator - Linda WEBBIA [id number] #### 630-4 #### [place] [address] [place] [address] Vac[employer]er Operator - Linda HERRING [id number] Performed for [facility] [address] [place] [address] Lymphocytes/100 WBC (Bld) 18.1 % Low 20.0-40.0 [facility] Comment on above: Performed By: #### U AR #### [facility] [address] [place] [address] [employer]er Operator - Linda HERRING [id number] #### 630-4 #### [facility] [address] [place] [address] Vac[employer]er Operator - Linda HERRING [id number] Performed for [facility] [address] [place], [place] [address] MCH (RBC) [Entitic mass] 29.7 pg Normal 27.0-31.0 [facility] Comment on above: Performed By: #### U AR #### [facility] [address] [place] [address] [employer]er Operator - Linda HERRING [id number] #### 630-4 #### [facility] [address] [place] [address] Vac[employer]er Operator - Linda HERRING [id number] Performed for [facility] [address] [place], [place] [address] MCHC (RBC) [Mass/Vol] 30.8 g/dL Low 32.0-36.0 [facility] Comment on above: Performed By: #### U AR #### [facility] [address] [place] [address] [employer]er Operator - Linda HERRING [id number] #### 630-4 #### [facility] [address] [place] [address] Vac[employer]er Operator - Linda HERRING [id number] Performed for [facility] [address] [place] [address] MCV (RBC) [Entitic vol] 96.3 fL Normal 80.0-100.0 [facility] Comment on above: Performed By: #### U AR #### [facility] [address] [place] [address] Vac[employer]er Operator - Linda HERRING [id number] #### 630-4 #### [facility] [address] [place] [address] Vac[employer] Cleaner Operator - Linda HERRING [id number] Performed for [facility] [address] [place] [address] Monocytes (Bld) [#/Vol] 0.83 10*3/uL High 0.10-0.60 [facility] Comment on above: Performed By: #### U AR #### [facility] [address] [place] [address] [employer]er Operator - Linda HERRING [id number] #### 630-4 #### [facility] [address] [place] [address] Vac[employer]er Operator - Linda HERRING [id number] Performed for [facility] [address] [place] [address] Monocytes/100 WBC (Bld) 7.6 % Normal <=8.0 [facility] Comment on above: Performed By: #### U AR #### [facility] [address] [place] [address] [employer]er Operator - Linda HERRING [id number] #### 630-4 #### [facility] [address] [place] [address] [employer]er Operator - Linda HERRING [id number] Performed for [facility] [address] [place] [address] Neutrophils (Bld) [#/Vol] 7.83 10*3/uL High 1.40-6.50 [facility] Comment on above: Performed By: #### U AR #### [facility] [address] [place] [address] Vac[employer] Cleaner Operator - Linda HERRING [id number] #### 630-4 #### [facility] [address] [place] [address] Vacuum Cleaner Operator - Linda HERRING [id number] Performed for [facility] [address] [place], [place] [address] Neutrophils/100 WBC (Bld) 71.3 % High 50.0-70.0 [facility] Comment on above: Performed By: #### U AR #### [facility] [address] [place] [address] Vac[employer] Cleaner Operator - Linda HERRING [id number] #### 630-4 #### [facility] [address] [place] [address] Vacuum Cleaner Operator - Linda HERRING [id number] Performed for [facility] [address] [place], [place] [address] Nucleated RBC (Bld) [#/Vol] 0.00 10*3/uL Normal <=0.10 [facility] Comment on above: Performed By: #### U AR #### [facility] [address] [place] [address] Vac[employer]er Operator - Linda HERRING [id number] #### 630-4 #### [facility] [address] [place] [address] Vac[employer]er Operator - Linda HERRING [id number] Performed for [facility] [address] [place], [place] [address] Platelet mean volume (Bld) [Entitic vol] 10.7 fL Normal 9.0-13.0 [facility] Comment on above: Performed By: #### U AR #### [facility] [address] [place] [address] Vacuum Cleaner Operator - Linda HERRING [id number] #### 630-4 #### [facility] [address] [place] [address] Vacuum Cleaner Operator - Linda HERRING [id number] Performed for [facility] [address] [place], [place] [address] Platelets (Bld) [#/Vol] 271 10*3/uL Normal 130-400 [facility] Comment on above: Performed By: #### U AR #### [facility] [address] [place] [address] Vacuum Cleaner Operator - Linda WEBBIA [id number] #### 630-4 #### [facility] [address] [place] [address] Vacuum Cleaner Operator - Linda WEBBIA [id number] Performed for [facility] [address] [place] [address] RBC (Bld) [#/Vol] 3.47 10*6/uL Low 4.00-6.30 [facility] Comment on above: Performed By: #### U AR #### [facility] [address] [place] [address] Vac[employer] Cleaner Operator - Linda HERRING [id number] #### 630-4 #### [facility] [address] [place] [address] Vacuum Cleaner Operator - Linda WEBBIA [id number] Performed for [facility] [address] [place] [address] WBC (Bld) [#/Vol] 10.98 10*3/uL High 4.80-10.80 [facility] Comment on above: Performed By: #### U AR #### [facility] [address] [place] [address] Vacuum Cleaner Operator - Linda WEBBIA [id number] #### 630-4 #### [facility] [address] [place] [address] Vacuum Cleaner Operator - Linda WEBBIA [id number] Performed for [facility] [address] [place] [address] Comprehensive metabolic 2000 panelon 07-18-2024 Albumin [Mass/Vol] 2.8 g/dL Low 3.4-5.0 [facility] Comment on above: Performed By: #### 1 8481-2 #### [facility] [address] [place] [address] Vacuum Cleaner Operator - Linda HERRING [id number] ALP [Catalytic activity/Vol] 133 U/L Normal 50-136 [facility] Comment on above: Performed By: #### 1 8481-2 #### [facility] [address] [place] [address] Vacuum Cleaner Operator - Linda Das CLIA [id number] ALT [Catalytic activity/Vol] 26 U/L Normal 14-59 [facility] Comment on above: Performed By: #### 1 8481-2 #### [facility] [address] [place] [address] Vacuum Cleaner Operator - Linda Das CLIA [id number] Anion gap [Moles/Vol] 5.0 mmol/L Normal <=15.0 [facility] Comment on above: Performed By: #### 1 8481-2 #### [facility] [address] [place] [address] Vacuum Cleaner Operator - Linda Das CLIA [id number] AST [Catalytic activity/Vol] 22 U/L Normal 15-37 [facility] Comment on above: Performed By: #### 1 8481-2 #### [facility] [address] [place] [address] Vacuum Cleaner Operator - Linda Das CLIA [id number] Bilirubin [Mass/Vol] mg/dL Normal 0.2-1.0 [facility] Comment on above: Performed By: #### 1 8481-2 #### [facility] [address] [place] [address] Vacuum Cleaner Operator - Linda Das CLIA [id number] Calcium [Mass/Vol] 9.7 mg/dL Normal 8.5-10.1 [facility] Comment on above: Performed By: #### 1 8481-2 #### [facility] [address] [place] [address] Vacuum Cleaner Operator - Linda Reynoldsrell CLIA [id number] Chloride [Moles/Vol] 102 mmol/L Normal 98-107 [facility] Comment on above: Performed By: #### 1 8481-2 #### [facility] [address] [place] [address] Vacuum Cleaner Operator - Linda Reynoldsrell CLIA [id number] CO2 [Moles/Vol] 36 mmol/L High 21-32 [facility] Comment on above: Performed By: #### 1 8481-2 #### [facility] [address] [place] [address] Vacuum Cleaner Operator - [facility] [id number] Creatinine [Mass/Vol] 0.21 mg/dL Low 0.51-0.95 [facility] Comment on above: Performed By: #### 1 8481-2 #### [facility] [address] [place] [address] Vacuum Cleaner Operator - [facility] [id number] GFR/1.73 sq M.predicted MDRD (S/P/Bld) [Vol rate/Area] mL/min/{1.73_m2} Normal >=60 [facility] Comment on above: Performed By: #### 1 8481-2 #### [facility] [address] [place] [address] Vacuum Cleaner Operator - [facility] [id number] Glucose [Mass/Vol] 120 mg/dL High 74-106 [facility] Comment on above: Performed By: #### 1 8481-2 #### [facility] [address] - [facility] [id number] HGFR GLOMERULAR FILTRATIO N RATE INTERPRETATION~The eGFR is calculated using the MDRD equation.~This equation has been validated in patients with chronic kidney disease;~however, it underestimates the GFR in healthy patients with GFR's over 60 mL/min.~The equation is not valid in children under the age of 18.~NOTE: Criteria for Chronic Kidney Disease:~ ~1. Kidney damage for at least three months, as defined~by structural or functional abnormalities of the kidney,~with or without decreased glomerular filtration rate, manifested by either:~* Pathological abnormalities or~* Markers of Kidney damage, including abnormalities in~the composition of the blood or urine or abnormalities in imaging tests.~ ~2. GFR <60 mL/min/1.73 m squared for at least three months, with or without kidney damage.~ Normal [facility] Comment on above: Performed By: #### 1 8481-2 #### [facility] [address] [place] [address] Vacuum Cleaner Operator - Linda WEBBIA [id number] Potassium [Moles/Vol] 3.5 mmol/L Normal 3.5-5.1 [facility] Comment on above: Performed By: #### 1 8481-2 #### [facility] [address] [place] [address] Vacuum Cleaner Operator - Linda WEBBIA [id number] Protein [Mass/Vol] 6.8 g/dL Normal 6.4-8.2 [facility] Comment on above: Performed By: #### 1 8481-2 #### [facility] [address] [place] [address] Vacuum Cleaner Operator - Linda WEBBIA [id number] Sodium [Moles/Vol] 143 mmol/L Normal 136-145 [facility] Comment on above: Performed By: #### 1 8481-2 #### [facility] [address] [place] [address] Vacuum Cleaner Operator - Linda WEBBIA [id number] Urea nitrogen [Mass/Vol] 12 mg/dL Normal 7-17 [facility] Comment on above: Performed By: #### 1 8481-2 #### [facility] [address] [place] [address] Vacuum Cleaner Operator - Linda WEBBIA [id number] GLUCOSE BY METERon 4 Glucose [Mass/Vol] 158 mg/dL High 65-110 [facility] Comment on above: Performed By: #### U AR #### [facility] [address] [place] [address] Vac[employer]er Operator - Linda WEBBIA [id number] #### 630-4 #### [facility] [address] [place] [address] Vacuum Cleaner Operator - Linda Das CLIA [id number] Performed for [facility] [address] [place] [address] Glucose [Mass/Vol] 218 mg/dL High 65-110 [facility] Comment on above: Performed By: #### V ANCL #### [facility] [address] [place] [address] Vac[employer]er Operator - Linda HERRING [id number] Glucose [Mass/Vol] 131 mg/dL High 65-110 [facility] Comment on above: Performed By: #### U AR #### [facility] [address] [place] [address] Vac[employer]er Operator - Linda HERRING [id number] #### 630-4 #### [facility] [address] [place] [address] Vacuum Cleaner Operator - Linda HERRING [id number] Performed for [place] [address] [place] [address] CBC W Auto Differential pane l (Bld)on 07-17-2024 Basophils (Bld) [#/Vol] 0.11 10*3/uL Normal <=0.70 [facility] Comment on above: Performed By: #### G Wilmar, 624-7 #### [facility] [address] [place] [address] Vacuum Cleaner Operator - Linda HERRING [id number] Performed for [facility] [address] [place] [address] #### SPUTUME #### [place] [address] [place] [address] Vacuum Cleaner Operator - Linda HERRING [id number] Basophils/100 WBC (Bld) 1.5 % Normal <=2.0 [facility] Comment on above: Performed By: #### G Wilmar, 624-7 #### [facility] [address] [place] [address] Vacuum Cleaner Operator - Linda HERRING [id number] Performed for [facility] [address] [place] [address] #### SPUTUME #### [place] [address] [place] [address] Vacuum Cleaner Operator - Linda HERRING [id number] Eosinophils (Bld) [#/Vol] 0.17 10*3/uL Normal <=0.70 [facility] Comment on above: Performed By: #### Mariana Urban, 7 #### [facility] [address] [place] [address] Vacuum [employer]er Operator - Linda WEBBIA [id number] Performed for [facility] [address] [place] [address] #### SPUTUME #### [facility] [address] [place] [address] Vacuum Cleaner Operator - Linda HERRING [id number] Eosinophils/100 WBC (Bld) 2.3 % Normal <=10.0 [facility] Comment on above: Performed By: #### Mariana Urban, #### [place] [address] [place] [address] Vacuum Cleaner Operator - Linda HERRING [id number] Performed for [facility] [address] [place] [address] #### SPUTUME #### [facility] [address] [place] [address] Vacuum [employer]er Operator - Linda HERRING [id number] Erythrocyte distribution width (RBC) [Entitic vol] 53.6 fL High 36.4-46.3 [facility] Comment on above: Performed By: #### G Wilmar, #### [place] [address] [place] [address] Vacuum Cleaner Operator - Linda WEBBIA [id number] Performed for [facility] [address] [place] [address] #### SPUTUME #### [facility] [address] [place] [address] Vacuum Cleaner Operator - Linda HERRING [id number] Hematocrit (Bld) [Volume fraction] 34.4 % Low 37.0-47.0 [facility] Comment on above: Performed By: #### G Wilmar, 7 #### [facility] [address] [place] [address] Vacuum Cleaner Operator - Linda WEBBIA [id number] Performed for [facility] [address] [place] [address] #### SPUTUME #### [facility] [address] [place] [address] Vacuum Cleaner Operator - Linda HERRING [id number] Hemoglobin (Bld) [Mass/Vol] 10.4 g/dL Low 12.0-16.0 [facility] Comment on above: Performed By: #### Mariana Urban, 624-7 #### [facility] [address] [place] [address] Vacuum Cleaner Operator - Linda WEBBIA [id number] Performed for [facility] [address] [place] [address] #### SPUTUME #### [facility] [address] [place] [address] Vacuum Cleaner Operator - Linda HERRING [id number] Immature granulocytes (Bld) [#/Vol] 0.06 10*3/uL Normal <=0.10 [facility] Comment on above: Performed By: #### Mariana Urban, 62-7 #### [facility] [address] [place] [address] Vacuum Cleaner Operator - Linda HERRING [id number] Performed for [facility] [address] [place] [address] #### SPUTUME #### [facility] [address] [place] [address] Vacuum Cleaner Operator - Linda HERRING [id number] Immature granulocytes/100 WBC (Bld) 0.80 % Normal <=1.50 [facility] Comment on above: Performed By: #### Mariana Urban, 62-7 #### [facility] [address] [place] [address] Vacuum Cleaner Operator - Linda WEBBIA [id number] Performed for [facility] [address] [place] [address] #### SPUTUME #### [facility] [address] [place] [address] Vacuum Cleaner Operator - Linda HERRING [id number] Lymphocytes (Bld) [#/Vol] 1.56 10*3/uL Normal 1.20-3.40 [facility] Comment on above: Performed By: #### Mariana Urban, 62-7 #### [facility] [address] [place] [address] Vacuum Cleaner Operator - Linda HERRING [id number] Performed for [facility] [address] [place] [address] #### SPUTUME #### [facility] [address] [place] [address] Vacuum Cleaner Operator - Linda WEBBIA [id number] Lymphocytes/100 WBC (Bld) 20.9 % Normal 20.0-40.0 [facility] Comment on above: Performed By: #### Mariana Urban, 7 #### [facility] [address] [place] [address] Vacuum Cleaner Operator - Linda WEBBIA [id number] Performed for [facility] [address] [place] [address] #### SPUTUME #### [facility] [address] [place] [address] Vacuum Cleaner Operator - Linda WEBBIA [id number] MCH (RBC) [Entitic mass] 30.2 pg Normal 27.0-31.0 [facility] Comment on above: Performed By: #### Mariana Urban, 7 #### [facility] [address] [place] [address] Vacuum Cleaner Operator - Linda WEBBIA [id number] Performed for [facility] [address] [place] [address] #### SPUTUME #### [facility] [address] [place] [address] Vacuum Cleaner Operator - Linda HERRING [id number] MCHC (RBC) [Mass/Vol] 30.2 g/dL Low 32.0-36.0 [facility] Comment on above: Performed By: #### Mariana Urban, -7 #### [facility] [address] [place] [address] Vacuum Cleaner Operator - Linda HERRING [id number] Performed for [facility] [address] [place] [address] #### SPUTUME #### [facility] [address] [place] [address] Vacuum Cleaner Operator - Linda HERRING [id number] MCV (RBC) [Entitic vol] 100.0 fL Normal 80.0-100.0 [facility] Comment on above: Performed By: #### Mariana Urban, 624-7 #### [facility] [address] [place] [address] Vacuum Cleaner Operator - Linda HERRING [id number] Performed for [facility] [address] [place] [address] #### SPUTUME #### [place] [address] [place] [address] Vacuum Cleaner Operator - Linda HERRING [id number] Monocytes (Bld) [#/Vol] 0.91 10*3/uL High 0.10-0.60 [facility] Comment on above: Performed By: #### G Wilmar, 624-7 #### [facility] [address] [place] [address] Vacuum Cleaner Operator - Linda HERRING [id number] Performed for [facility] [address] [place] [address] #### SPUTUME #### [place] [address] [place] [address] Vacuum Cleaner Operator - Linda HERRING [id number] Monocytes/100 WBC (Bld) 12.2 % High <=8.0 [facility] Comment on above: Performed By: #### Mariana Urban, 624-7 #### [facility] [address] [place] [address] Vacuum Cleaner Operator - Linda HERRING [id number] Performed for [facility] [address] [place] [address] #### SPUTUME #### [place] [address] [place] [address] Vacuum Cleaner Operator - Linda HERRING [id number] Neutrophils (Bld) [#/Vol] 4.65 10*3/uL Normal 1.40-6.50 [facility] Comment on above: Performed By: #### Mariana Urban, -7 #### [facility] [address] [place] [address] Vacuum Cleaner Operator - Linda HERRING [id number] Performed for [facility] [address] [place] [address] #### SPUTUME #### [facility] [address] [place] [address] Vacuum Cleaner Operator - Linda WEBBIA [id number] Neutrophils/100 WBC (Bld) 62.3 % Normal 50.0-70.0 [facility] Comment on above: Performed By: #### Mariana Urban, 7 #### [place] [address] [place] [address] Vacuum Cleaner Operator - Linda WEBBIA [id number] Performed for [facility] [address] [place] [address] #### SPUTUME #### [place] [address] [place] [address] Vacuum Cleaner Operator - Linda HERRING [id number] Nucleated RBC (Bld) [#/Vol] 0.00 10*3/uL Normal <=0.10 [facility] Comment on above: Performed By: #### Mariana Urban, 7 #### [facility] [address] [place] [address] Vacuum Cleaner Operator - Linda WEBBIA [id number] Performed for [facility] [address] [place] [address] #### SPUTUME #### [place] [address] [place] [address] Vacuum Cleaner Operator - Linda HERRING [id number] Platelet mean volume (Bld) [Entitic vol] 10.2 fL Normal 9.0-13.0 [facility] Comment on above: Performed By: #### Mariana Urban, -7 #### [place] [address] [place] [address] Vacuum Cleaner Operator - Linda WEBBIA [id number] Performed for [facility] [address] [place] [address] #### SPUTUME #### [facility] [address] [place] [address] Vacuum Cleaner Operator - Linda HERRING [id number] Platelets (Bld) [#/Vol] 282 10*3/uL Normal 130-400 [facility] Comment on above: Performed By: #### G Wilmar, 624-7 #### [facility] [address] [place] [address] Vacuum Cleaner Operator - Linda WEBBIA [id number] Performed for [facility] [address] [place] [address] #### SPUTUME #### [facility] [address] [place] [address] Vacuum Cleaner Operator - Linda HERRING [id number] RBC (Bld) [#/Vol] 3.44 10*6/uL Low 4.00-6.30 [facility] Comment on above: Performed By: #### Mariana Urban, 624-7 #### [facility] [address] [place] [address] Vacuum Cleaner Operator - Linda WEBBIA [id number] Performed for [facility] [address] [place] [address] #### SPUTUME #### [facility] [address] [place] [address] Vacuum Cleaner Operator - Linda HERRING [id number] WBC (Bld) [#/Vol] 7.46 10*3/uL Normal 4.80-10.80 [facility] Comment on above: Performed By: #### G Wilmar, 624-7 #### [facility] [address] [place] [address] Vacuum Cleaner Operator - Linda HERRING [id number] Performed for [facility] [address] [place] [address] #### SPUTUME #### [facility] [address] [place] [address] Vacuum Cleaner Operator - Linda HERRING [id number] CULTURE URINEon 07-17-2024 Bacteria identified Cx Nom (U) PSEUDOMONAS AERUGINOSA SENT OUT FOR CEFEPIME SUSCEPTIBILITY TESTING Pseudomonas aeruginosa ORGANISM: Isolate 1 ANTIBIOTIC INTERP QUE Piperacillin/Tazobactam S 16 Imipenem I 8 Meropenem I 4 Amikacin S 16 Gentamicin I 8 Tobramycin S <=1 Ciprofloxacin R >=4 Levofloxacin R 4 Normal [facility] Comment on above: Performed By: #### U AR #### [facility] [address] [place] [address] Vacuum Cleaner Operator - Linda HERRING [id number] #### 630-4 #### [place] [address] [place] [address] Vacuum Cleaner Operator - Linda HERRING [id number] Performed for [address] [place] [address] Comprehensive metabolic 2000 panelon 07-17-2024 Albumin [Mass/Vol] 2.5 g/dL Low 3.4-5.0 [facility] Comment on above: Performed By: #### 1 8481-2 #### [facility] [address] [place] [address] Vacuum Cleaner Operator - Linda HERRING [id number] ALP [Catalytic activity/Vol] 129 U/L Normal 50-136 [facility] Comment on above: Performed By: #### 1 8481-2 #### [facility] [address] [place] [address] Vacuum Cleaner Operator - Linda WEBBIA [id number] ALT [Catalytic activity/Vol] 23 U/L Normal 14-59 [facility] Comment on above: Performed By: #### 1 8481-2 #### [facility] [address] [place] [address] Vacuum Cleaner Operator - Linda WEBBIA [id number] Anion gap [Moles/Vol] 5.0 mmol/L Normal <=15.0 [facility] Comment on above: Performed By: #### 1 8481-2 #### [facility] [address] [place] [address] Vacuum Cleaner Operator - Linda WEBBIA [id number] AST [Catalytic activity/Vol] 21 U/L Normal 15-37 [facility] Comment on above: Performed By: #### 1 8481-2 #### [facility] [address] [place] [address] Vacuum Cleaner Operator - Linda WEBBIA [id number] Bilirubin [Mass/Vol] mg/dL Normal 0.2-1.0 [facility] Comment on above: Performed By: #### 1 8481-2 #### [facility] [address] [place] [address] Vacuum Cleaner Operator - Linda Das CLIA [id number] Calcium [Mass/Vol] 9.0 mg/dL Normal 8.5-10.1 [facility] Comment on above: Performed By: #### 1 8481-2 #### [address] [place] [address] Vacuum Cleaner Operator - Linda Das CLIA [id number] Chloride [Moles/Vol] 114 mmol/L High 98-107 [facility] Comment on above: Performed By: #### 1 8481-2 #### [place] [address] [place] [address] Vacuum Cleaner Operator - Linda WEBBIA [id number] CO2 [Moles/Vol] 30 mmol/L Normal 21-32 [facility] Comment on above: Performed By: #### 1 8481-2 #### [facility] [address] [place] [address] Vacuum Cleaner Operator - Linda Das CLIA [id number] Creatinine [Mass/Vol] 0.27 mg/dL Low 0.51-0.95 [facility] Comment on above: Performed By: #### 1 8481-2 #### [facility] [address] [place] [address] Vacuum Cleaner Operator - Linda Das CLIA [id number] GFR/1.73 sq M.predicted MDRD (S/P/Bld) [Vol rate/Area] mL/min/{1.73_m2} Normal >=60 [facility] Comment on above: Performed By: #### 1 8481-2 #### [facility] [address] [facility] [place] [address] Vacuum Cleaner Operator - Linda HERRING [id number] Glucose [Mass/Vol] 185 mg/dL High 74-106 [facility] Comment on above: Performed By: #### 1 8481-2 #### [facility] [address] [facility] [place] [address] Vacuum Cleaner Operator - Linda HERRING [id number] HGFR GLOMERULAR FILTRATIO N RATE INTERPRETATION~The eGFR is calculated using the MDRD equation.~This equation has been validated in patients with chronic kidney disease;~however, it underestimates the GFR in healthy patients with GFR's over 60 mL/min.~The equation is not valid in children under the age of 18.~NOTE: Criteria for Chronic Kidney Disease:~ ~1. Kidney damage for at least three months, as defined~by structural or functional abnormalities of the kidney,~with or without decreased glomerular filtration rate, manifested by either:~* Pathological abnormalities or~* Markers of Kidney damage, including abnormalities in~the composition of the blood or urine or abnormalities in imaging tests.~ ~2. GFR <60 mL/min/1.73 m squared for at least three months, with or without kidney damage.~ Normal [facility] Comment on above: Performed By: #### 1 8481-2 #### [facility] [address] [facility] [place] [address] Vacuum Cleaner Operator - Linda HERRING [id number] Potassium [Moles/Vol] 4.2 mmol/L Normal 3.5-5.1 [facility] Comment on above: Performed By: #### 1 8481-2 #### [facility] [address] [facility] [place] [address] Vacuum Cleaner Operator - Linda HERRING [id number] Protein [Mass/Vol] 6.1 g/dL Low 6.4-8.2 [facility] Comment on above: Performed By: #### 1 8481-2 #### [facility] [address] [place] [address] Vacuum Cleaner Operator - Linda WEBBIA [id number] Sodium [Moles/Vol] 149 mmol/L High 136-145 [facility] Comment on above: Performed By: #### 1 8481-2 #### [facility] [address] [place] [address] Vacuum Cleaner Operator - Linda WEBBIA [id number] Urea nitrogen [Mass/Vol] 8 mg/dL Normal 03-15 [facility] Comment on above: Performed By: #### 1 8481-2 #### [facility] [address] [place] [address] Vacuum Cleaner Operator - Linda HERRING [id number] GLUCOSE BY METERon Glucose [Mass/Vol] 126 mg/dL High 65-110 [facility] Comment on above: Performed By: #### U AR #### [facility] [address] [place] [address] Vacuum Cleaner Operator - Linda WEBBIA [id number] #### 630-4 #### [facility] [address] [place] [address] Vacuum Cleaner Operator - Linda WEBBIA [id number] Performed for [facility] [address] [place] [address] CBC W Auto Differential pane l (Bld)on 07-16-2024 Basophils (Bld) [#/Vol] 0.10 10*3/uL Normal <=0.70 [facility] Comment on above: Performed By: #### 5 7021-8 #### [facility] [address] [place] [address] Vacuum Cleaner Operator - Linda WEBBIA [id number] Basophils/100 WBC (Bld) 1.2 % Normal <=2.0 [facility] Comment on above: Performed By: #### 5 7021-8 #### [facility] [address] [place] [address] Vacuum Cleaner Operator - Linda HERRING [id number] Eosinophils (Bld) [#/Vol] 0.16 10*3/uL Normal <=0.70 [facility] Comment on above: Performed By: #### 5 7021-8 #### [place] [address] [place] [address] Vacuum Cleaner Operator - Linda WEBBIA [id number] Eosinophils/100 WBC (Bld) 1.9 % Normal <=10.0 [facility] Comment on above: Performed By: #### 5 7021-8 #### [address] [place] [address] Vacuum Cleaner Operator - Linda WEBBIA [id number] Erythrocyte distribution width (RBC) [Entitic vol] 48.9 fL High 36.4-46.3 [facility] Comment on above: Performed By: #### 5 7021-8 #### [address] [place] [address] Vacuum Cleaner Operator - Linda WEBBIA [id number] Hematocrit (Bld) [Volume fraction] 29.7 % Low 37.0-47.0 [facility] Comment on above: Performed By: #### 5 7021-8 #### [address] [place] [address] Vacuum Cleaner Operator - Linda WEBBIA [id number] Hemoglobin (Bld) [Mass/Vol] 9.6 g/dL Low 12.0-16.0 [facility] Comment on above: Performed By: #### 5 7021-8 #### [place] [address] [place] [address] Vacuum Cleaner Operator - Linda Das CLIA [id number] Immature granulocytes (Bld) [#/Vol] 0.05 10*3/uL Normal <=0.10 [facility] Comment on above: Performed By: #### 5 7021-8 #### [address] [place] [address] Vacuum Cleaner Operator - Linda WEBBIA [id number] Immature granulocytes/100 WBC (Bld) 0.60 % Normal <=1.50 [facility] Comment on above: Performed By: #### 5 7021-8 #### [facility] [address] [facility] [place] [address] Vacuum Cleaner Operator - Linda HERRING [id number] Lymphocytes (Bld) [#/Vol] 1.94 10*3/uL Normal 1.20-3.40 [facility] Comment on above: Performed By: #### 5 7021-8 #### [address] [place] [address] Vacuum Cleaner Operator - Linda HERRING [id number] Lymphocytes/100 WBC (Bld) 22.9 % Normal 20.0-40.0 [facility] Comment on above: Performed By: #### 5 7021-8 #### [address] [place] [address] Vacuum Cleaner Operator - Linda HERRING [id number] MCH (RBC) [Entitic mass] 30.0 pg Normal 27.0-31.0 [facility] Comment on above: Performed By: #### 5 7021-8 #### [address] [place] [address] Vacuum Cleaner Operator - Linda HERRING [id number] MCHC (RBC) [Mass/Vol] 32.3 g/dL Normal 32.0-36.0 [facility] Comment on above: Performed By: #### 5 7021-8 #### [address] [place] [address] Vacuum Cleaner Operator - Linda WEBBIA [id number] MCV (RBC) [Entitic vol] 92.8 fL Normal 80.0-100.0 [facility] Comment on above: Performed By: #### 5 7021-8 #### [address] [place] [address] Vacuum Cleaner Operator - Linda HERRING [id number] Monocytes (Bld) [#/Vol] 0.71 10*3/uL High 0.10-0.60 [facility] Comment on above: Performed By: #### 5 7021-8 #### [address] [place] [address] Vacuum Cleaner Operator - Linda WEBBIA [id number] Monocytes/100 WBC (Bld) 8.4 % High <=8.0 [facility] Comment on above: Performed By: #### 5 7021-8 #### [place] [address] [place] [address] Vacuum Cleaner Operator - Linda Das CLIA [id number] Neutrophils (Bld) [#/Vol] 5.52 10*3/uL Normal 1.40-6.50 [facility] Comment on above: Performed By: #### 5 7021-8 #### [place] [address] [place] [address] Vacuum Cleaner Operator - Linda Das CLIA [id number] Neutrophils/100 WBC (Bld) 65.0 % Normal 50.0-70.0 [facility] Comment on above: Performed By: #### 5 7021-8 #### [address] [place] [place] [address] Vacuum Cleaner Operator - Linda Das CLIA [id number] Nucleated RBC (Bld) [#/Vol] 0.00 10*3/uL Normal <=0.10 [facility] Comment on above: Performed By: #### 5 7021-8 #### [address] [place] [place] [address] Vacuum Cleaner Operator - Linda Das CLIA [id number] Platelet mean volume (Bld) [Entitic vol] 9.9 fL Normal 9.0-13.0 [facility] Comment on above: Performed By: #### 5 7021-8 #### [address] [place] [place] [address] Vacuum Cleaner Operator - Linda Das CLIA [id number] Platelets (Bld) [#/Vol] 288 10*3/uL Normal 130-400 [facility] Comment on above: Performed By: #### 5 7021-8 #### [address] [facility] [place] [place] [address] Vacuum Cleaner Operator - Linda Das CLIA [id number] RBC (Bld) [#/Vol] 3.20 10*6/uL Low 4.00-6.30 [facility] Comment on above: Performed By: #### 5 7021-8 #### [facility] [address] [place] [address] Vacuum Cleaner Operator - Linda WEBBIA [id number] WBC (Bld) [#/Vol] 8.48 10*3/uL Normal 4.80-10.80 [facility] Comment on above: Performed By: #### 5 7021-8 #### [facility] [address] [place] [address] Vacuum Cleaner Operator - Linda WEBBIA [id number] Comprehensive metabolic 2000 panelon 07-16-2024 Albumin [Mass/Vol] 2.6 g/dL Low 3.4-5.0 [facility] Comment on above: Performed By: #### 2 4323-8 #### [address] [place] [address] Vacuum Cleaner Operator - Linda Das CLIA [id number] ALP [Catalytic activity/Vol] 126 U/L Normal 50-136 [facility] Comment on above: Performed By: #### 2 4323-8 #### [place] [address] [place] [address] Vacuum Cleaner Operator - Linda WEBBIA [id number] ALT [Catalytic activity/Vol] 21 U/L Normal 14-59 [facility] Comment on above: Performed By: #### 2 4323-8 #### [facility] [address] [place] [address] Vacuum Cleaner Operator - Linda WEBBIA [id number] Anion gap [Moles/Vol] 6.0 mmol/L Normal <=15.0 [facility] Comment on above: Performed By: #### 2 4323-8 #### [facility] [address] [place] [address] Vacuum Cleaner Operator - Linda WEBBIA [id number] AST [Catalytic activity/Vol] 16 U/L Normal 15-37 [facility] Comment on above: Performed By: #### 2 4323-8 #### [facility] [address] [place] [address] Vacuum Cleaner Operator - Linda Das CLIA [id number] Bilirubin [Mass/Vol] mg/dL Normal 0.2-1.0 [facility] Comment on above: Performed By: #### 2 4323-8 #### [facility] [address] [place] [address] Vacuum Cleaner Operator - Linda Das CLIA [id number] Calcium [Mass/Vol] 8.8 mg/dL Normal 8.5-10.1 [facility] Comment on above: Performed By: #### 2 4323-8 #### [facility] [address] [place] [address] Vacuum Cleaner Operator - Linda Das CLIA [id number] Chloride [Moles/Vol] 107 mmol/L Normal 98-107 [facility] Comment on above: Performed By: #### 2 4323-8 #### [facility] [address] [place] [address] Vacuum Cleaner Operator - Linda Das CLIA [id number] CO2 [Moles/Vol] 30 mmol/L Normal 21-32 [facility] Comment on above: Performed By: #### 2 4323-8 #### [facility] [address] [place] [address] Vacuum Cleaner Operator - Linda Das CLIA [id number] Creatinine [Mass/Vol] 0.23 mg/dL Low 0.51-0.95 [facility] Comment on above: Performed By: #### 2 4323-8 #### [facility] [address] [place] [address] Vacuum Cleaner Operator - Linda WEBBIA [id number] GFR/1.73 sq M.predicted MDRD (S/P/Bld) [Vol rate/Area] mL/min/{1.73_m2} Normal >=60 [facility] Comment on above: Performed By: #### 2 4323-8 #### [facility] [address] [place] [address] Vacuum Cleaner Operator - Linda HERRING [id number] Glucose [Mass/Vol] 102 mg/dL Normal 74-106 [facility] Comment on above: Performed By: #### 2 4323-8 #### [facility] [address] [facility] [place] [address] Vacuum Cleaner Operator - Linda HERRING [id number] HGFR GLOMERULAR FILTRATIO N RATE INTERPRETATION~The eGFR is calculated using the MDRD equation.~This equation has been validated in patients with chronic kidney disease;~however, it underestimates the GFR in healthy patients with GFR's over 60 mL/min.~The equation is not valid in children under the age of 18.~NOTE: Criteria for Chronic Kidney Disease:~ ~1. Kidney damage for at least three months, as defined~by structural or functional abnormalities of the kidney,~with or without decreased glomerular filtration rate, manifested by either:~* Pathological abnormalities or~* Markers of Kidney damage, including abnormalities in~the composition of the blood or urine or abnormalities in imaging tests.~ ~2. GFR <60 mL/min/1.73 m squared for at least three months, with or without kidney damage.~ Normal [facility] Comment on above: Performed By: #### 2 4323-8 #### [facility] [address] [facility] [place] [address] Vacuum Cleaner Operator - Linda HERRING [id number] Potassium [Moles/Vol] 3.3 mmol/L Low 3.5-5.1 [facility] Comment on above: Performed By: #### 2 4323-8 #### [facility] [address] [facility] [place] [address] Vacuum Cleaner Operator - Linda HERRING [id number] Protein [Mass/Vol] 6.1 g/dL Low 6.4-8.2 [facility] Comment on above: Performed By: #### 2 4323-8 #### [facility] [address] [facility] [place] [address] Vacuum Cleaner Operator - Linda HERRING [id number] Sodium [Moles/Vol] 143 mmol/L Normal 136-145 [facility] Comment on above: Performed By: #### 2 4323-8 #### [facility] [address] [place] [address] Vacuum Cleaner Operator - Linda HERRING [id number] Urea nitrogen [Mass/Vol] 10 mg/dL Normal 03-15 [facility] Comment on above: Performed By: #### 2 4323-8 #### [facility] [address] [place] [address] Vacuum Cleaner Operator - Linda HERRING [id number] VANCOMYCIN LEVELon 4 HVANCL This level should be evaluated based on draw time in relation to administration time. Goal pharmacokinetic values may need to be calculated and will vary depending on indication and intended bacteria coverage. Contact pharmacy @ [employer] [employer] with questions. Normal [facility] Comment on above: Performed By: #### U AR #### [facility] [address] [place] [address] Vacuum Cleaner Operator - Linda HERRING [id number] #### 630-4 #### [facility] [address] [place] [address] Vacuum Cleaner Operator - Linda Thiago HERRING [id number] Performed for [facility] [address] [place] [address] VANCOMYCIN LEVEL 23.6 ug/mL Normal [facility] Comment on above: Performed By: #### U AR #### [facility] [address] [place] [address] Vacuum Cleaner Operator - Linda HERRING [id number] #### 630-4 #### [facility] [address] [place] [address] Vacuum Cleaner Operator - Linda Das NEVAEH [id number] Performed for [facility] [address] [place] [address] HVANCL This level should be evaluated based on draw time in relation to administration time. Goal pharmacokinetic values may need to be calculated and will vary depending on indication and intended bacteria coverage. Contact pharmacy @ [employer] with questions. Normal [facility] Comment on above: Performed By: #### V ANCL #### [facility] [address] [place] [address] Vacuum Cleaner Operator - Linda WEBBIA [id number] VANCOMYCIN LEVEL <3.0 Normal [facility] Comment on above: Performed By: #### V ANCL #### [address] [place] [address] Vacuum Cleaner Operator - Linda WEBBIA [id number] CBC W Auto Differential pane l (Bld)on 07-15-2024 Basophils (Bld) [#/Vol] 0.14 10*3/uL Normal <=0.70 [facility] Comment on above: Performed By: #### 5 7021-8 #### [address] [place] [address] Vacuum Cleaner Operator - Linda WEBBIA [id number] Basophils/100 WBC (Bld) 1.4 % Normal <=2.0 [facility] Comment on above: Performed By: #### 5 7021-8 #### [address] [place] [address] Vacuum Cleaner Operator - Linda WEBBIA [id number] Eosinophils (Bld) [#/Vol] 0.18 10*3/uL Normal <=0.70 [facility] Comment on above: Performed By: #### 5 7021-8 #### [address] [place] [address] Vacuum Cleaner Operator - Linda WEBBIA [id number] Eosinophils/100 WBC (Bld) 1.8 % Normal <=10.0 [facility] Comment on above: Performed By: #### 5 7021-8 #### [place] [address] Vacuum Cleaner Operator - Linda WEBBIA [id number] Erythrocyte distribution width (RBC) [Entitic vol] 48.3 fL High 36.4-46.3 [facility] Comment on above: Performed By: #### 5 7021-8 #### [address] [place] [address] Vacuum Cleaner Operator - Linda WEBBIA [id number] Hematocrit (Bld) [Volume fraction] 35.0 % Low 37.0-47.0 [facility] Comment on above: Performed By: #### 5 7021-8 #### [address] [place] [place] [address] Vacuum Cleaner Operator - Linda WEBBIA [id number] Hemoglobin (Bld) [Mass/Vol] 11.3 g/dL Low 12.0-16.0 [facility] Comment on above: Performed By: #### 5 7021-8 #### [address] [facility] [place] [place] [address] Vacuum Cleaner Operator - Linda WEBBIA [id number] Immature granulocytes (Bld) [#/Vol] 0.11 10*3/uL High <=0.10 [facility] Comment on above: Performed By: #### 5 7021-8 #### [address] [place] [address] Vacuum Cleaner Operator - Linda Das CLIA [id number] Immature granulocytes/100 WBC (Bld) 1.10 % Normal <=1.50 [facility] Comment on above: Performed By: #### 5 7021-8 #### [address] [place] [address] Vacuum Cleaner Operator - Linda WEBBIA [id number] Lymphocytes (Bld) [#/Vol] 2.73 10*3/uL Normal 1.20-3.40 [facility] Comment on above: Performed By: #### 5 7021-8 #### [address] [place] [address] Vacuum Cleaner Operator - Linda Das CLIA [id number] Lymphocytes/100 WBC (Bld) 26.6 % Normal 20.0-40.0 [facility] Comment on above: Performed By: #### 5 7021-8 #### [address] [place] [address] Vacuum Cleaner Operator - Linda WEBBIA [id number] MCH (RBC) [Entitic mass] 30.0 pg Normal 27.0-31.0 [facility] Comment on above: Performed By: #### 5 7021-8 #### [facility] [address] [facility]. [place] [address] Vacuum Cleaner Operator - Linda HERRING [id number] MCHC (RBC) [Mass/Vol] 32.3 g/dL Normal 32.0-36.0 [facility] Comment on above: Performed By: #### 5 7021-8 #### [place] [address] [place] [address] Vacuum Cleaner Operator - Linda HERRING [id number] MCV (RBC) [Entitic vol] 92.8 fL Normal 80.0-100.0 [facility] Comment on above: Performed By: #### 5 7021-8 #### [address] [place] [address] Vacuum Cleaner Operator - Linda HERRING [id number] Monocytes (Bld) [#/Vol] 0.88 10*3/uL High 0.10-0.60 [facility] Comment on above: Performed By: #### 5 7021-8 #### [place] [address] [place] [address] Vacuum Cleaner Operator - Linda WEBBIA [id number] Monocytes/100 WBC (Bld) 8.6 % High <=8.0 [facility] Comment on above: Performed By: #### 5 7021-8 #### [address] [place] [address] Vacuum Cleaner Operator - Linda WEBBIA [id number] Neutrophils (Bld) [#/Vol] 6.22 10*3/uL Normal 1.40-6.50 [facility] Comment on above: Performed By: #### 5 7021-8 #### [place] [address] [place] [address] Vacuum Cleaner Operator - Linda WEBBIA [id number] Neutrophils/100 WBC (Bld) 60.5 % Normal 50.0-70.0 [facility] Comment on above: Performed By: #### 5 7021-8 #### [address] [place] [address] Vacuum Cleaner Operator - Linda WEBBIA [id number] Nucleated RBC (Bld) [#/Vol] 0.00 10*3/uL Normal <=0.10 [facility] Comment on above: Performed By: #### 5 7021-8 #### [facility] [address] [place] [address] Vacuum Cleaner Operator - Linda WEBBIA [id number] Platelet mean volume (Bld) [Entitic vol] 10.2 fL Normal 9.0-13.0 [facility] Comment on above: Performed By: #### 5 7021-8 #### [address] [place] [address] Vacuum Cleaner Operator - Linda WEBBIA [id number] Platelets (Bld) [#/Vol] 329 10*3/uL Normal 130-400 [facility] Comment on above: Performed By: #### 5 7021-8 #### [address] [facility] [place] [place] [address] Vacuum Cleaner Operator - Linda HERRING [id number] RBC (Bld) [#/Vol] 3.77 10*6/uL Low 4.00-6.30 [facility] Comment on above: Performed By: #### 5 7021-8 #### [address] [facility] [place] [place] [address] Vacuum Cleaner Operator - Linda HERRING [id number] WBC (Bld) [#/Vol] 10.26 10*3/uL Normal 4.80-10.80 [facility] Comment on above: Performed By: #### 5 7021-8 #### [facility] [address] [place], [place] [address] [place] [address] Vacuum Cleaner Operator - Linda WEBBIA [id number] CHEST AP PORTABLEon 07-15-20 24 CHEST AP PORTABLE EXAM: CHEST AP DEBBY BLE 07/15/2024 HISTORY: Fever. COMPARISON: 07/06/2024, 10/30/2023, CT imaging 11/03/2023. TECHNIQUE: AP portable semiupright 2:52 AM. FINDINGS: Tracheostomy tube is proximal to the tracheal bifurcation. There is hardware in the thoracic and lumbar spine. The heart size is normal with a stable appearing contour. There is loss of volume in the right upper hemithorax due to the significant scoliosis of the spine. No developing new airspace abnormality is seen in the right lung base or the left lung. IMPRESSION: No developing new airspace abnormality evident. Normal [facility] Comprehensive metabolic 2000 panelon 07-15-2024 Albumin [Mass/Vol] 3.1 g/dL Low 3.4-5.0 [facility] Comment on above: Performed By: #### 5 7021-8 #### [facility] [address] [place] [address] Vacuum Cleaner Operator - Linda Das CLIA [id number] ALP [Catalytic activity/Vol] 136 U/L Normal 50-136 [facility] Comment on above: Performed By: #### 5 7021-8 #### [facility] [address] [place] [address] Vacuum Cleaner Operator - Linda Das CLIA [id number] ALT [Catalytic activity/Vol] 26 U/L Normal 14-59 [facility] Comment on above: Performed By: #### 5 7021-8 #### [facility] [address] [place] [address] Vacuum Cleaner Operator - Linda Das CLIA [id number] Anion gap [Moles/Vol] 6.0 mmol/L Normal <=15.0 [facility] Comment on above: Performed By: #### 5 7021-8 #### [facility] [address] [place] [address] Vacuum Cleaner Operator - Linda Das CLIA [id number] AST [Catalytic activity/Vol] 27 U/L Normal 15-37 [facility] Comment on above: Performed By: #### 5 7021-8 #### [facility] [address] [place] [address] Vacuum Cleaner Operator - Linda WEBBIA [id number] Bilirubin [Mass/Vol] mg/dL Normal 0.2-1.0 [facility] Comment on above: Performed By: #### 5 7021-8 #### [facility] [address] [place] [address] Vacuum Cleaner Operator - Linda WEBBIA [id number] Calcium [Mass/Vol] 9.7 mg/dL Normal 8.5-10.1 [facility] Comment on above: Performed By: #### 5 7021-8 #### [facility] [address] [place] [address] Vacuum Cleaner Operator - Linda Das CLIA [id number] Chloride [Moles/Vol] 100 mmol/L Normal 98-107 [facility] Comment on above: Performed By: #### 5 7021-8 #### [facility] [address] [place] [address] Vacuum Cleaner Operator - Linda WEBBIA [id number] CO2 [Moles/Vol] 35 mmol/L High 21-32 [facility] Comment on above: Performed By: #### 5 7021-8 #### [facility] [address] [place] [address] Vacuum Cleaner Operator - Linda WEBBIA [id number] Creatinine [Mass/Vol] 0.22 mg/dL Low 0.51-0.95 [facility] Comment on above: Performed By: #### 5 7021-8 #### [facility] [address] [place] [address] Vacuum Cleaner Operator - Linda WEBBIA [id number] GFR/1.73 sq M.predicted MDRD (S/P/Bld) [Vol rate/Area] mL/min/{1.73_m2} Normal >=60 [facility] Comment on above: Performed By: #### 5 7021-8 #### [facility] [address] [place] [address] Vacuum Cleaner Operator - Linda Das CLIA [id number] Glucose [Mass/Vol] 103 mg/dL Normal 74-106 [facility] Comment on above: Performed By: #### 5 7021-8 #### [facility] [address] [place] [address] Vacuum Cleaner Operator - Linda Das CLIA [id number] HGFR GLOMERULAR FILTRATIO N RATE INTERPRETATION~The eGFR is calculated using the MDRD equation.~This equation has been validated in patients with chronic kidney disease;~however, it underestimates the GFR in healthy patients with GFR's over 60 mL/min.~The equation is not valid in children under the age of 18.~NOTE: Criteria for Chronic Kidney Disease:~ ~1. Kidney damage for at least three months, as defined~by structural or functional abnormalities of the kidney,~with or without decreased glomerular filtration rate, manifested by either:~* Pathological abnormalities or~* Markers of Kidney damage, including abnormalities in~the composition of the blood or urine or abnormalities in imaging tests.~ ~2. GFR <60 mL/min/1.73 m squared for at least three months, with or without kidney damage.~ Normal [facility] Comment on above: Performed By: #### 5 7021-8 #### [facility] [address] [facility]. [place] [address] Vacuum Cleaner Operator [facility] [id number] Potassium [Moles/Vol] 3.6 mmol/L Normal 3.5-5.1 [facility] Comment on above: Performed By: #### 5 7021-8 #### [facility] [address] [facility]. [place] [address] Vacuum Cleaner Operator - [facility] [id number] Protein [Mass/Vol] 7.3 g/dL Normal 6.4-8.2 [facility] Comment on above: Performed By: #### 5 7021-8 #### [facility] [address] [facility] [place] [address] Vacuum Cleaner Operator - [facility] CLIA [id number] Sodium [Moles/Vol] 141 mmol/L Normal 136-145 [facility] Comment on above: Performed By: #### 5 7021-8 #### [facility] [address] [facility]. [place] [address] Vacuum Cleaner Operator - [facility] [id number] Urea nitrogen [Mass/Vol] 16 mg/dL Normal 7-17 [facility] Comment on above: Performed By: #### 5 7021-8 #### [facility] [address] [place] [address] Vacuum Cleaner Operator - Linda HERRING [id number] LACTATEon 07-15-2024 Lactate [Moles/Vol] 1.9 mmol/L Normal 0.4-2.0 [facility] Comment on above: Performed By: #### 5 7021-8 #### [facility] [address] [place] [address] Vacuum Cleaner Operator - Linda HERRING [id number] Lactate [Moles/Vol] 2.4 mmol/L High 0.4-2.0 [facility] Comment on above: Performed By: #### 5 7021-8 #### [place] [address] [place] [address] Vacuum Cleaner Operator - Linda HERRING [id number] S. pyogenes Ag Ql (Throat)on 07-15-2024 GROUP A STREP Negative Normal [facility] Comment on above: Performed By: #### 1 8481-2 #### [address] [place] [address] Vacuum Cleaner Operator - Linda HERRING [id number] GROUP CG STREP Negative Normal [facility] Comment on above: Performed By: #### 1 8481-2 #### [facility] [address] [place] [address] Vacuum Cleaner Operator - Linda HERRING [id number] HRAPID TESTING PERFORMED USING MOLECULAR TESTING Normal [facility] Comment on above: Performed By: #### 1 8481-2 #### [facility] [address] [place] [address] Vacuum Cleaner Operator - Linda HERRING [id number] URINALYSIS with reflex to CU LTUREon 07-15-2024 Amorphous sediment LM Ql (Urine sed) MODERATE Abnormal NONE SEEN [facility] Comment on above: Performed By: #### U AR #### [place] [address] [place] [address] Vacuum Cleaner Operator - Linda HERRING [id number] #### 630-4 #### [facility] [address] [place] [address] Vacuum Cleaner Operator - Linda HERRING [id number] Performed for [facility] [address] [place] [address] Bacteria LM Ql (Urine sed) MODERATE Abnormal TRACE [facility] Comment on above: Performed By: #### U AR #### [facility] [address] [place] [address] Vacuum Cleaner Operator - Linda HERRING [id number] #### 630-4 #### [facility] [address] [place] [address] Vacuum Cleaner Operator - Linda HERRING [id number] Performed for [facility] [address] [place] [address] Bilirubin (U) [Mass/Vol] Negative Normal NEGATIVE [facility] Comment on above: Performed By: #### U AR #### [facility] [address] [place] [address] Vacuum Cleaner Operator - Linda HERRING [id number] #### 630-4 #### [facility] [address] [place] [address] Vacuum Cleaner Operator - Linda HERRING [id number] Performed for [facility] [address] [place] [address] Clarity (U) TURBID Abnormal CLEAR [facility] Comment on above: Performed By: #### U AR #### [facility] [address] [place] [address] Vacuum Cleaner Operator - Linda HERRING [id number] #### 630-4 #### [facility] [address] [place] [address] Vacuum Cleaner Operator - Linda HERRING [id number] Performed for [facility] [address] [place] [address] Color (U) YELLOW Normal YELLOW [facility] Comment on above: Performed By: #### U AR #### [facility] [address] [place] [address] Vacuum Cleaner Operator - Linda HERRING [id number] #### 630-4 #### [facility] [address] [place] [address] Vacuum Cleaner Operator - Linda HERRING [id number] Performed for [facility] [address] [place] [address] Glucose Test strip (U) [Mass/Vol] Negative Normal NEGATIVE [facility] Comment on above: Performed By: #### U AR #### [facility] [address] [place] [address] Vacuum Cleaner Operator - Linda HERRING [id number] #### 630-4 #### [facility] [address] [place] [address] Vacuum Cleaner Operator - Linda HERRING [id number] Performed for [facility] [address] [place] [address] HMICRO MICROSCOPIC Normal [facility] Comment on above: Performed By: #### U AR #### [facility] [address] [place] [address] Vacuum Cleaner Operator - Linda HERRING [id number] #### 630-4 #### [facility] [address] [place] [address] Vacuum Cleaner Operator - Linda HERRING [id number] Performed for [facility] [address] [place] [address] Hyaline casts (Urine sed) [#/Area] 0-8 Normal 0-8 [facility] Comment on above: Performed By: #### U AR #### [facility] [address] [place] [address] Vacuum Cleaner Operator - Linda HERRING [id number] #### 630-4 #### [facility] [address] [place] [address] Vacuum Cleaner Operator - Linda HERRING [id number] Performed for [facility] [address] [place] [address] Ketones (U) [Mass/Vol] Negative Normal NEGATIVE [facility] Comment on above: Performed By: #### U AR #### [facility] [address] [place] [address] Vacuum Cleaner Operator - Linda HERRING [id number] #### 630-4 #### [facility] [address] [place] [address] Vacuum Cleaner Operator - Linda HERRING [id number] Performed for [facility] [address] [place] [address] Leukocyte esterase Qn (U) 2+ Abnormal TRACE [facility] Comment on above: Performed By: #### U AR #### [facility] [address] [place] [address] Vacuum Cleaner Operator - Linda HERRING [id number] #### 630-4 #### [facility] [address] [place] [address] Vacuum Cleaner Operator - Linda HERRING [id number] Performed for [facility] [address] [place] [address] Mucus Ql (Urine sed) SMALL Abnormal TRACE [facility] Comment on above: Performed By: #### U AR #### [facility] [address] [place] [address] Vacuum Cleaner Operator - Linda HERRING [id number] #### 630-4 #### [facility] [address] [place] [address] Vacuum Cleaner Operator - Linda HERRING [id number] Performed for [facility] [address] [place] [address] Nitrite Ql (U) Positive Abnormal NEGATIVE [facility] Comment on above: Performed By: #### U AR #### [facility] [address] [place] [address] Vacuum Cleaner Operator - Linda HERRING [id number] #### 630-4 #### [facility] [address] [place] [address] Vacuum Cleaner Operator - Linda HERRING [id number] Performed for [facility] [address] [place] [address] pH (U) [pH] High 5.5-7.5 [facility] Comment on above: Performed By: #### U AR #### [facility] [address] [place] [address] Vacuum Cleaner Operator - Linda HERRING [id number] #### 630-4 #### [facility] [address] [place] [address] Vacuum Cleaner Operator - Linda HERRING [id number] Performed for [facility] [address] [place] [address] Protein (U) [Mass/Vol] 2+ Abnormal NEGATIVE [facility] Comment on above: Performed By: #### U AR #### [facility] [address] [place] [address] Vacuum Cleaner Operator - Linda HERRING [id number] #### 630-4 #### [facility] [address] [place] [address] Vacuum Cleaner Operator - Linda HERRING [id number] Performed for [facility] [address] [place] [address] RBC (U) [#/Vol] Negative Normal NEGATIVE [facility] Comment on above: Performed By: #### U AR #### [facility] [address] [place] [address] Vacuum Cleaner Operator - Linda HERRING [id number] #### 630-4 #### [facility] [address] [place] [address] Vacuum Cleaner Operator - Linda HERRING [id number] Performed for [facility] [address] [place] [address] RBC LM.HPF (Urine sed) [#/Area] 0-4 Normal 0-4 [facility] Comment on above: Performed By: #### U AR #### [facility] [address] [place] [address] Vacuum Cleaner Operator - Linda HERRING [id number] #### 630-4 #### [facility] [address] [place] [address] Vacuum Cleaner Operator - Linda HERRING [id number] Performed for [facility] [address] [place] [address] Specific gravity (U) [Rel density] 1.028 Normal 1.010-1.035 [facility] Comment on above: Performed By: #### U AR #### [facility] [address] [place] [address] Vacuum Cleaner Operator - Linda HERRING [id number] #### 630-4 #### [facility] [address] [place] [address] Vacuum Cleaner Operator - Linda HERRING [id number] Performed for [facility] [address] [place] [address] SQUAMOUS EPITHELIALS 6-10 Abnormal 0-5 [facility] Comment on above: Performed By: #### U AR #### [facility] [address] [place] [address] Vacuum Cleaner Operator - Linda HERRING [id number] #### 630-4 #### [facility] [address] [place] [address] Vacuum Cleaner Operator - Linda HERRING [id number] Performed for [facility] [address] [place] [address] Urobilinogen Qn (U) 1.0 {Sari'U}/dL Normal <=1.0 [facility] Comment on above: Performed By: #### U AR #### [facility] [address] [place] [address] Vacuum Cleaner Operator - Linda HERRING [id number] #### 630-4 #### [facility] [address] [place] [address] Vacuum Cleaner Operator - Linda HERRING [id number] Performed for [facility] [address] [place] [address] WBC LM.HPF (Urine sed) [#/Area] 20-50 Abnormal 0-5 [facility] Comment on above: Performed By: #### U AR #### [facility] [address] [place] [address] Vacuum Cleaner Operator - Linda HERRING [id number] #### 630-4 #### [facility] [address] [place] [address] Vacuum Cleaner Operator - [facility] NEV[facility] [id number] Performed for [facility] [address] [place] [address] VIRAL RESPIRATORY QUAD PLEXo n 07-15-2024 CORONAVIRUS 19 Not detected Normal NOT DETECTED [facility] Comment on above: Performed By: #### 5 7021-8 #### [facility] [address] [place] [address] Vacuum Cleaner Operator [facility] [id number] Influenza A Not detected Normal NOT DETECTED [facility] Comment on above: Performed By: #### 5 7021-8 #### [place] [address] [place] [address] Vacuum Cleaner Operator - [facility] [id number] Influenza B Not detected Normal NOT DETECTED [facility] Comment on above: Performed By: #### 5 7021-8 #### [place] [address] [place] [address] Vacuum Cleaner Operator [facility] [id number] RSV Ag Ql (Nose) Not detected Normal NOT DETECTED [facility] Comment on above: Performed By: #### 5 7021-8 #### [facility] [address] [place] [address] Vacuum Cleaner Operator [facility] [id number] QUE 1 DRUGon 07-12-2024 Min Inhibitory Conc (1 Drug) Final report Normal [facility] Comment on above: Performed By: #### U AR #### [facility] [address] [place] [address] Vacuum Cleaner Operator - [facility] [id number] #### 630-4 #### [place] [address] [place] [address] Vacuum Cleaner Operator - Linda Das CLCORBY [id number] Performed for [facility] [address] [place] [address] Result 1 Comment Normal [facility] Comment on above: Result Comment: Pseu domonas aeruginosa Identification performed by account, not confirmed by this laboratory. Cefepime = >16 ug/mL = Resistant Performed By: #### U AR #### [place] [address] [place] [address] Vacuum Cleaner Operator - Linda Dasalison HERRING [id number] #### 630-4 #### [place] [address] [place] [address] Vacuum Cleaner Operator [facility] [id number] Performed for [place] [address] [address] [place] [address] CULTURE SPUTUMon 07-09-2024 Bacteria identified Respiratory culture Nom (Sput) Pseudomonas aeruginosa ORGANISM: Isolate 1 ANTIBIOTIC INTERP QUE Piperacillin/Tazobactam S <=4 Imipenem R >=16 Meropenem I 4 Amikacin S 4 Gentamicin S 4 Tobramycin S <=1 Ciprofloxacin R >=4 Levofloxacin R 4 Normal [facility] Comment on above: Performed By: #### G S, 624-7 #### [address] [place] [address] Vacuum Cleaner Operator - [facility] [id number] Performed for [place] [address] [place] [address] #### SPUTUME #### [place] [address] [place] [address] Vacuum Cleaner Operator - [facility] [id number] CULTURE URINEon 07-09-2024 Bacteria identified Cx Nom (U) Proteus mirabilis ORGANISM: Isolate 1 ANTIBIOTIC INTERP QUE Ampicillin S <=2 S <=2 Piperacillin/Tazobactam S <=4 Cefazolin S <=4 S <=1 S <=1 Ceftriaxone S <=0.25 Cefepime S <=0.12 Meropenem S <=0.25 Gentamicin S <=1 Tobramycin S <=1 Ciprofloxacin S <=0.25 Levofloxacin S <=0.12 Tetracycline R >=16 Nitrofurantoin R 128 Trimethoprim/Sulfamethox azole S <=20 Normal [facility] Comment on above: Performed By: #### 1 8481-2 #### [address] [place] [address] Vacuum Cleaner Operator - Linda HERRING [id number] CBC W Auto Differential pane l (Bld)on 07-06-2024 Basophils (Bld) [#/Vol] 0.13 10*3/uL Normal <=0.70 [facility] Comment on above: Performed By: #### U AR #### [facility] [address] [place] [address] Vacuum Cleaner Operator - Linda HERRING [id number] #### 630-4 #### [facility] [address] [place] [address] Vacuum Cleaner Operator [facility]Bro[facility] CenterDasal[facility] HERRING [id number] Performed for [facility] [address] [place] [address] Basophils/100 WBC (Bld) 1.2 % Normal <=2.0 [facility] Comment on above: Performed By: #### U AR #### [facility] [address] [place] [address] Vacuum Cleaner Operator - Linda HERRING [id number] #### 630-4 #### [facility] [address] [place] [address] Vacuum Cleaner Operator - Linda HERRING [id number] Performed for [facility] [address] [place], [place] [address] Eosinophils (Bld) [#/Vol] 0.27 10*3/uL Normal <=0.70 [facility] Comment on above: Performed By: #### U AR #### [facility] [address] [place] [address] Vacuum Cleaner Operator - Linda Thiago HERRING [id number] #### 630-4 #### [facility] [address] [place] [address] Vacuum Cleaner Operator [facility] NEVAEH [id number] Performed for [facility] [address] [place], [place] [address] Eosinophils/100 WBC (Bld) 2.5 % Normal <=10.0 [facility] Comment on above: Performed By: #### U AR #### [facility] [address] [place] [address] Vacuum Cleaner Operator - Linda HERRING [id number] #### 630-4 #### [facility] [address] [place] [address] Vacuum Cleaner Operator - Linda HERRING [id number] Performed for [facility] [address] [place] [address] Erythrocyte distribution width (RBC) [Entitic vol] 49.3 fL High 36.4-46.3 [facility] Comment on above: Performed By: #### U AR #### [facility] [address] [place] [address] Vacuum Cleaner Operator - Linda HERRING [id number] #### 630-4 #### [facility] [address] [place] [address] Vacuum Cleaner Operator - Linda HERRING [id number] Performed for [facility] [address] [place] [address] Hematocrit (Bld) [Volume fraction] 34.1 % Low 37.0-47.0 [facility] Comment on above: Performed By: #### U AR #### [facility] [address] [place] [address] Vacuum Cleaner Operator - Linda HERRING [id number] #### 630-4 #### [facility] [address] [place] [address] Vacuum Cleaner Operator - Linda HERRING [id number] Performed for [facility] [address] [place] [address] Hemoglobin (Bld) [Mass/Vol] 10.8 g/dL Low 12.0-16.0 [facility] Comment on above: Performed By: #### U AR #### [facility] [address] [place] [address] Vacuum Cleaner Operator - Linda HERRING [id number] #### 630-4 #### [facility] [address] [place] [address] Vacuum Cleaner Operator - Linda HERRING [id number] Performed for [facility] [address] [place] [id number] Immature granulocytes (Bld) [#/Vol] 0.11 10*3/uL High <=0.10 [facility] Comment on above: Performed By: #### U AR #### [facility] [address] [place] [address] Vacuum Cleaner Operator - Linda WEBBIA [id number] #### 630-4 #### [facility] [address] [place] [address] Vacuum Cleaner Operator - Linda WEBBIA [id number] Performed for [facility] [address] [place] [address] Immature granulocytes/100 WBC (Bld) 1.00 % Normal <=1.50 [facility] Comment on above: Performed By: #### U AR #### [facility] [address] [place] [address] Vacuum Cleaner Operator - Linda WEBBIA [id number] #### 630-4 #### [facility] [address] [place] [address] Vacuum Cleaner Operator - Linda WEBBIA [id number] Performed for [facility] [address] [place] [address] Lymphocytes (Bld) [#/Vol] 2.38 10*3/uL Normal 1.20-3.40 [facility] Comment on above: Performed By: #### U AR #### [facility] [address] [place] [address] Vacuum Cleaner Operator - Linda WEBBIA [id number] #### 630-4 #### [facility] [address] [place] [address] Vacuum Cleaner Operator - Linda WEBBIA [id number] Performed for [facility] [address] [place] [address] Lymphocytes/100 WBC (Bld) 22.3 % Normal 20.0-40.0 [facility] Comment on above: Performed By: #### U AR #### [facility] [address] [place] [address] Vacuum Cleaner Operator - Linda WEBBIA [id number] #### 630-4 #### [facility] [address] [place] [address] Vacuum Cleaner Operator - Linda HERRING [id number] Performed for [facility] [address] [place], [place] [address] MCH (RBC) [Entitic mass] 30.1 pg Normal 27.0-31.0 [facility] Comment on above: Performed By: #### U AR #### [facility] [address] [place] [address] Vacuum Cleaner Operator - Linda HERRING [id number] #### 630-4 #### [facility] [address] [place] [address] Vacuum Cleaner Operator - Linda HERRING [id number] Performed for [facility] [address] [place] [address] MCHC (RBC) [Mass/Vol] 31.7 g/dL Low 32.0-36.0 [facility] Comment on above: Performed By: #### U AR #### [facility] [address] [place] [address] Vacuum Cleaner Operator - Linda HERRING [id number] #### 630-4 #### [facility] [address] [place] [address] Vacuum Cleaner Operator - Linda HERRING [id number] Performed for [facility] [address] [place] [address] MCV (RBC) [Entitic vol] 95.0 fL Normal 80.0-100.0 [facility] Comment on above: Performed By: #### U AR #### [facility] [address] [place] [address] Vacuum Cleaner Operator - Linda HERRING [id number] #### 630-4 #### [facility] [address] [place] [address] Vacuum Cleaner Operator - Linda HERRING [id number] Performed for [facility] [address] [place] [address] Monocytes (Bld) [#/Vol] 1.12 10*3/uL High 0.10-0.60 [facility] Comment on above: Performed By: #### U AR #### [facility] [address] [place] [address] Vacuum Cleaner Operator - Linda HERRING [id number] #### 630-4 #### [facility] [address] [place] [address] Vacuum Cleaner Operator - Linda WEBBIA [id number] Performed for [facility] [address] [place], [place] [address] Monocytes/100 WBC (Bld) 10.5 % High <=8.0 [facility] Comment on above: Performed By: #### U AR #### [facility] [address] [place] [address] Vacuum Cleaner Operator - Linda HERRING [id number] #### 630-4 #### [facility] [address] [place] [address] Vacuum Cleaner Operator - Linda WEBBIA [id number] Performed for [facility] [address] [place], [place] [address] Neutrophils (Bld) [#/Vol] 6.64 10*3/uL High 1.40-6.50 [facility] Comment on above: Performed By: #### U AR #### [facility] [address] [place] [address] Vacuum Cleaner Operator - Linda HERRING [id number] #### 630-4 #### [facility] [address] [place] [address] Vacuum Cleaner Operator - Linda HERRING [id number] Performed for [facility] [address] [place], [place] [address] Neutrophils/100 WBC (Bld) 62.5 % Normal 50.0-70.0 [facility] Comment on above: Performed By: #### U AR #### [facility] [address] [place] [address] Vacuum Cleaner Operator - Linda WEBBIA [id number] #### 630-4 #### [place] [address] [place], [place] [address] Vacuum Cleaner Operator - Linda HERRING [id number] Performed for [facility] [address] [place], [place] [address] Nucleated RBC (Bld) [#/Vol] 0.00 10*3/uL Normal <=0.10 [facility] Comment on above: Performed By: #### U AR #### [facility] [address] [place] [address] Vacuum Cleaner Operator - Linda WEBBIA [id number] #### 630-4 #### [facility] [address] [place] [address] Vacuum Cleaner Operator - Linda HERRING [id number] Performed for [facility] [address] [place], [place] [address] Platelet mean volume (Bld) [Entitic vol] 10.1 fL Normal 9.0-13.0 [facility] Comment on above: Performed By: #### U AR #### [facility] [address] [place] [address] Vacuum Cleaner Operator - Linda HERRING [id number] #### 630-4 #### [facility] [address] [place] [address] Vacuum Cleaner Operator - Linda HERRING [id number] Performed for [facility] [address] [place], [place] [address] Platelets (Bld) [#/Vol] 308 10*3/uL Normal 130-400 [facility] Comment on above: Performed By: #### U AR #### [facility] [address] [place] [address] Vacuum Cleaner Operator - Linda HERRING [id number] #### 630-4 #### [facility] [address] [place] [address] Vacuum Cleaner Operator - Linda HERRING [id number] Performed for [facility] [address] [place], [place] [address] RBC (Bld) [#/Vol] 3.59 10*6/uL Low 4.00-6.30 [facility] Comment on above: Performed By: #### U AR #### [facility] [address] [place] [address] Vacuum Cleaner Operator - Linda HERRING [id number] #### 630-4 #### [facility] [address] [place] [address] Vacuum Cleaner Operator - Linda HERRING [id number] Performed for [facility] [address] [place] [address] WBC (Bld) [#/Vol] 10.65 10*3/uL Normal 4.80-10.80 [facility] Comment on above: Performed By: #### U AR #### [facility] [address] [place] [address] Vacuum Cleaner Operator - Linda WEBBCORBY [id number] #### 630-4 #### [place] [address] [place] [address] Vacuum Cleaner Operator - Linda WEBBCORBY [id number] Performed for [facility] [address] [place] [address] CHEST AP PORTABLEon 07-06-20 CHEST AP PORTABLE EXAMINATION: CHEST A P PORTABLE, , 07/06/2024 5:10 PM EST INDICATION: Dyspnea HISTORY: Ordering Provider Reason for Exam: Technologist Note: Additional: COMPARISON: XR CHEST PA/AP Study Date: 05/13/2024 TECHNIQUE: Chest x-ray: One view. FINDINGS: Tracheostomy tube is seen in place. Stable appearance of marked rotoscoliotic curvature of the spine is seen with the scoliotic rods in place. Stable appearing prominent cardiac silhouette is seen which obscures the underlying lungs. No definite dense focal consolidation, pneumothorax or significant pleural effusion is seen on this single limited portable semiupright view of the chest. IMPRESSION: Tracheostomy tube is seen in place. No dense focal consolidation is seen. Normal [facility] CULTURE ROUTINEon 07-06-2024 Bacteria identified Aer cx Nom (Wound) PSEUDOMONAS AERUGINOSA SENT TO REFERENCE LAB FOR CEFEPIME SUSCEPTIBILITY Proteus mirabilis LIGHT GROWTH LIGHT GROWTH ORGANISM: Isolate 1 ANTIBIOTIC INTERP QUE Ampicillin S <=2 S 4 Piperacillin/Tazobactam S <=4 S <=1 S <=1 Ceftriaxone S <=0.25 Cefepime S <=0.12 Meropenem S <=0.25 Gentamicin S <=1 Tobramycin S <=1 Ciprofloxacin S <=0.25 Levofloxacin S <=0.12 Tetracycline R >=16 Trimethoprim/Sulfamethox azole S <=20 ORGANISM: Isolate 2 ANTIBIOTIC INTERP QUE Ampicillin S 4 S <=2 Piperacillin/Tazobactam S <=4 S 4 S 4 Ceftriaxone S <=0.25 Cefepime S <=0.12 Meropenem S <=0.25 Gentamicin S <=1 Tobramycin S <=1 Ciprofloxacin S <=0.25 Levofloxacin S <=0.12 Tetracycline R >=16 Trimethoprim/Sulfamethox azole S <=20 ORGANISM: Isolate 3 ANTIBIOTIC INTERP QUE Piperacillin/Tazobactam S <=4 Imipenem R >=16 Meropenem I 4 Amikacin S 4 Gentamicin S 4 Tobramycin S <=1 Ciprofloxacin R >=4 Levofloxacin R 4 Normal [facility] Comment on above: Performed By: #### G Wilmar, 624-7 #### [facility] [address] [place] [address] Vacuum Cleaner Operator - Linda HERRING [id number] Performed for [place] [address] #### SPUTUME #### [place] [address] [place] [address] Vacuum Cleaner Operator - Linda HERRING [id number] CULTURE SPUTUM with GRAM STA INon 07-06-2024 Reason for unsatisfactory specimen not related to sample quality of dried blood spot Nom (DBS) SATISFACTORY Normal SATISFACTORY [facility] Comment on above: Result Comment: The presence of normal upper respiratory tract fang can be present in sputum specimens and may not necessarily represent a pathologic process. Clinical correlation is recommended. Performed By: #### G S, 624-7 #### [facility] [address] [place] [address] Vacuum Cleaner Operator - Linda HERRING [id number] Performed for [address] [place] [address] #### SPUTUME #### [facility] [address] [place] [address] Vacuum Cleaner Operator - Linda HERRING [id number] Comprehensive metabolic 2000 panelon 07-06-2024 Albumin [Mass/Vol] 3.3 g/dL Low 3.4-5.0 [facility] Comment on above: Performed By: #### U AR #### [facility] [address] [place] [address] Vacuum Cleaner Operator - Linda HERRING [id number] #### 630-4 #### [facility] [address] [place] [address] Vacuum Cleaner Operator - Linda HERRING [id number] Performed for [facility] [address] [place] [address] ALP [Catalytic activity/Vol] 161 U/L High 50-136 [facility] Comment on above: Performed By: #### U AR #### [facility] [address] [place] [address] Vacuum Cleaner Operator - Linda WEBBIA [id number] #### 630-4 #### [facility] [address] [place] [address] Vacuum Cleaner Operator - Linda HERRING [id number] Performed for [facility] [address] [place] [address] ALT [Catalytic activity/Vol] 39 U/L Normal 14-59 [facility] Comment on above: Performed By: #### U AR #### [facility] [address] [place] [address] Vacuum Cleaner Operator - Linda Das CLIA [id number] #### 630-4 #### [facility] [address] [place] [address] Vacuum Cleaner Operator - Linda Dasalison HERRING [id number] Performed for [facility] [address] [place] [address] Anion gap [Moles/Vol] 6.0 mmol/L Normal <=15.0 [facility] Comment on above: Performed By: #### U AR #### [facility] [address] [place] [address] Vacuum Cleaner Operator - Linda HERRING [id number] #### 630-4 #### [facility] [address] [place] [address] Vacuum Cleaner Operator - Linda WEBBIA [id number] Performed for [facility] [address] [place], [place] [address] AST [Catalytic activity/Vol] 33 U/L Normal 15-37 [facility] Comment on above: Performed By: #### U AR #### [facility] [address] [place] [address] Vacuum Cleaner Operator - Linda WEBBIA [id number] #### 630-4 #### [facility] [address] [place] [address] Vacuum Cleaner Operator - Linda HERRING [id number] Performed for [facility] [address] [place] [address] Bilirubin [Mass/Vol] 0.2 mg/dL Normal 0.2-1.0 [facility] Comment on above: Performed By: #### U AR #### [facility] [address] [place] [address] Vacuum Cleaner Operator - Linda HERRING [id number] #### 630-4 #### [facility] [address] [place] [address] Vacuum Cleaner Operator - Linda WEBBIA [id number] Performed for [facility] [address] [place] [address] Calcium [Mass/Vol] 9.5 mg/dL Normal 8.5-10.1 [facility] Comment on above: Performed By: #### U AR #### [facility] [address] [place] [address] Vacuum Cleaner Operator - Linda HERRING [id number] #### 630-4 #### [facility] [address] [place] [address] Vacuum Cleaner Operator - Linda HERRING [id number] Performed for [facility] [address] [place], [place] [address] Chloride [Moles/Vol] 98 mmol/L Normal 98-107 [facility] Comment on above: Performed By: #### U AR #### [facility] [address] [place] [address] Vacuum Cleaner Operator - Linda HERRING [id number] #### 630-4 #### [facility] [address] [place] [address] Vacuum Cleaner Operator - Linda HRERING [id number] Performed for [facility] [address] [place], [place] [address] CO2 [Moles/Vol] 38 mmol/L High 21-32 [facility] Comment on above: Performed By: #### U AR #### [facility] [address] [place] [address] Vacuum Cleaner Operator - Linda HERRING [id number] #### 630-4 #### [facility] [address] [place] [address] Vacuum Cleaner Operator - Linda HERRING [id number] Performed for [facility] [address] [place] [address] Creatinine [Mass/Vol] 0.22 mg/dL Low 0.51-0.95 [facility] Comment on above: Performed By: #### U AR #### [facility] [address] [place] [address] Vacuum Cleaner Operator - Linda HERRING [id number] #### 630-4 #### [facility] [address] [place] [address] Vacuum Cleaner Operator - Linda HERRING [id number] Performed for [facility] [address] [place], [place] [address] GFR/1.73 sq M.predicted MDRD (S/P/Bld) [Vol rate/Area] mL/min/{1.73_m2} Normal >=60 [facility] Comment on above: Performed By: #### U AR #### [facility] [address] [place] [address] Vacuum Cleaner Operator - Linda HERRING [id number] #### 630-4 #### [facility] [address] [place] [address] Vacuum Cleaner Operator - Linda HERRING [id number] Performed for [facility] [address] [place] [address] Glucose [Mass/Vol] 120 mg/dL High 74-106 [facility] Comment on above: Performed By: #### U AR #### [facility] [address] [place] [address] Vacuum Cleaner Operator - Linda HERRING [id number] #### 630-4 #### [facility] [address] [place] [address] Vacuum Cleaner Operator - Linda HERRING [id number] Performed for [facility] [address] [place] [address] HGFR GLOMERULAR FILTRATIO N RATE INTERPRETATION~The eGFR is calculated using the MDRD equation.~This equation has been validated in patients with chronic kidney disease;~however, it underestimates the GFR in healthy patients with GFR's over 60 mL/min.~The equation is not valid in children under the age of 18.~NOTE: Criteria for Chronic Kidney Disease:~ ~1. Kidney damage for at least three months, as defined~by structural or functional abnormalities of the kidney,~with or without decreased glomerular filtration rate, manifested by either:~* Pathological abnormalities or~* Markers of Kidney damage, including abnormalities in~the composition of the blood or urine or abnormalities in imaging tests.~ ~2. GFR <60 mL/min/1.73 m squared for at least three months, with or without kidney damage.~ Normal [facility] Comment on above: Performed By: #### U AR #### [facility] [address] [place] [address] Vacuum Cleaner Operator - Linda HERRING [id number] #### 630-4 #### [facility] [address] [place] [address] Vacuum Cleaner Operator - Linda HERRING [id number] Performed for [facility] [address] [place] [address] Potassium [Moles/Vol] 3.4 mmol/L Low 3.5-5.1 [facility] Comment on above: Performed By: #### U AR #### [facility] [address] [place] [address] Vacuum Cleaner Operator - Linda HERRING [id number] #### 630-4 #### [facility] [address] [place] [address] Vacuum Cleaner Operator - Linda HERRING [id number] Performed for [facility] [address] [place] [address] Protein [Mass/Vol] 7.4 g/dL Normal 6.4-8.2 [facility] Comment on above: Performed By: #### U AR #### [facility] [address] [place] [address] Vacuum Cleaner Operator - Linda HERRING [id number] #### 630-4 #### [facility] [address] [place] [address] Vacuum Cleaner Operator - Linda HERRING [id number] Performed for [facility] [address] [place] [address] Sodium [Moles/Vol] 142 mmol/L Normal 136-145 [facility] Comment on above: Performed By: #### U AR #### [facility] [address] [place] [address] Vacuum Cleaner Operator - Linda HERRING [id number] #### 630-4 #### [facility] [address] [place] [address] Vacuum Cleaner Operator - Linda HERRING [id number] Performed for [facility] [address] [place] [address] Urea nitrogen [Mass/Vol] 20 mg/dL High 7-17 [facility] Comment on above: Performed By: #### U AR #### [facility] [address] [place] [address] Vacuum Cleaner Operator - Linda HERRING [id number] #### 630-4 #### [facility] [address] [place] [address] Vacuum Cleaner Operator - Linda HERRING [id number] Performed for [facility] [address] [place], [place] [address] GRAM STAINon 07-06-2024 Epithelial cells Gram stain Ql (Unsp spec) RARE Abnormal NONE SEEN [facility] Comment on above: Performed By: #### G S, 62-7 #### [facility] [address] [place] [address] Vacuum Cleaner Operator - Linda HERRING [id number] Performed for [facility] [address] [place] [address] #### SPUTUME #### [facility] [address] [place] [address] Vacuum Cleaner Operator - Linda HERRING [id number] HGSGP Positive Normal [facility] Comment on above: Performed By: #### G S, 967 #### [facility] [address] [place] [address] Vacuum Cleaner Operator - Linda HERRING [id number] Performed for [facility] [address] [place] [address] #### SPUTUME #### [facility] [address] [place] [address] Vacuum Cleaner Operator - Linda HERRING [id number] Microscopic observation Gram stain Nom (Unsp spec) Normal NONE SEEN [facility] Comment on above: Result Comment: MODE RATE Performed By: #### G S, 227 #### [facility] [address] [place] [address] Vacuum Cleaner Operator - Linda HERRING [id number] Performed for [facility] [address] [place] [address] #### SPUTUME #### [facility] [address] [place] [address] Vacuum Cleaner Operator - Linda HERRING [id number] Yeast Gram stain Ql (Unsp spec) Normal NONE SEEN [facility] Comment on above: Performed By: #### G S, 44-7 #### [facility] [address] [place] [address] Vacuum Cleaner Operator - Linda HERRING [id number] Performed for [facility] [address] [place] [address] #### SPUTUME #### [facility] [address] [place] [address] Vacuum Cleaner Operator - Linda HERRING [id number] URINALYSIS with reflex to CU LTUREon 07-06-2024 Bacteria LM Ql (Urine sed) LARGE Abnormal TRACE [facility] Comment on above: Performed By: #### 1 8481-2 #### [facility] [address] [place] [address] Vacuum Cleaner Operator - Linda HERRING [id number] Bilirubin (U) [Mass/Vol] Negative Normal NEGATIVE [facility] Comment on above: Performed By: #### 1 8481-2 #### [facility] [address] [place] [address] Vacuum Cleaner Operator - Linda HERRING [id number] Clarity (U) TURBID Abnormal CLEAR [facility] Comment on above: Performed By: #### 1 8481-2 #### [facility] [address] [place] [address] Vacuum Cleaner Operator - Linda HERRING [id number] Color (U) YELLOW Normal YELLOW [facility] Comment on above: Performed By: #### 1 8481-2 #### [facility] [address] [place] [address] Vacuum Cleaner Operator - Linda HERRING [id number] Glucose Test strip (U) [Mass/Vol] Negative Normal NEGATIVE [facility] Comment on above: Performed By: #### 1 8481-2 #### [facility] [address] [place] [address] Vacuum Cleaner Operator - Linda HERRING [id number] HMICRO MICROSCOPIC Normal [facility] Comment on above: Performed By: #### 1 8481-2 #### [facility] [address] [place] [address] Vacuum Cleaner Operator - Linda HERRING [id number] Hyaline casts (Urine sed) [#/Area] 50-100 Abnormal 0-8 [facility] Comment on above: Performed By: #### 1 8481-2 #### [address] [place] [address] Vacuum Cleaner Operator - Linda WEBBIA [id number] Ketones (U) [Mass/Vol] Negative Normal NEGATIVE [facility] Comment on above: Performed By: #### 1 8481-2 #### [address] [place] [address] Vacuum Cleaner Operator - Linda WEBBIA [id number] Leukocyte esterase Qn (U) 3+ Abnormal TRACE [facility] Comment on above: Performed By: #### 1 8481-2 #### [address] [place] [place] [address] [employer]uum Cleaner Operator - Linda WEBBIA [id number] Nitrite Ql (U) Negative Normal NEGATIVE [facility] Comment on above: Performed By: #### 1 8481-2 #### [place] [address] [employer]uum Cleaner Operator - Linda WEBBIA [id number] pH (U) [pH] High 5.5-7.5 [facility] Comment on above: Performed By: #### 1 8481-2 #### [place] [address] Vacuum Cleaner Operator - Linda WEBBIA [id number] Protein (U) [Mass/Vol] 3+ Abnormal NEGATIVE [facility] Comment on above: Performed By: #### 1 8481-2 #### [place] [address] Vacuum Cleaner Operator - Linda Das CLIA [id number] RBC (U) [#/Vol] Negative Normal NEGATIVE [facility] Comment on above: Performed By: #### 1 8481-2 #### [address] [place] [address] Vacuum Cleaner Operator - Linda WEBBIA [id number] RBC LM.HPF (Urine sed) [#/Area] 4-10 Abnormal 0-4 [facility] Comment on above: Performed By: #### 1 8481-2 #### [facility] [address] [place] [address] Vacuum Cleaner Operator - Linda HERRING [id number] Specific gravity (U) [Rel density] 1.035 Normal 1.010-1.035 [facility] Comment on above: Performed By: #### 1 8481-2 #### [facility] [address] [place] [address]. [place] [address] Vacuum Cleaner Operator - Linda HERRING [id number] SQUAMOUS EPITHELIALS 0-5 Normal 0-5 [facility] Comment on above: Performed By: #### 1 8481-2 #### [address] [place] [address] Vacuum Cleaner Operator - Linda HERRING [id number] Urobilinogen Qn (U) 1.0 {Sari'U}/dL Normal <=1.0 [facility] Comment on above: Performed By: #### 1 8481-2 #### [facility] [address] [facility] [place] [address] Vacuum Cleaner Operator - Linda HERRING [id number] WBC LM.HPF (Urine sed) [#/Area] 100-900 Abnormal 0-5 [facility] Comment on above: Performed By: #### 1 8481-2 #### [address] [place] [address] Vacuum Cleaner Operator - Linda HERRING [id number] CBC WITH AUTO DIFFERENTIALon 05-16-2024 AUTO NRBC 0.0 % Normal [facility] Comment on above: Performed By: #### L [id number] ####[facility] [address] [place] [address] Huber Prado M.D. [id number] AUTO NRBC ABS COUNT 0.00 K/mcL Normal 0.00-0.[address] [facility] Comment on above: Performed By: #### L [id number] ####[facility] [address] [place] [address] Huber Prado M.D. [id number] BASOPHILS ABSOLUTE COUNT 0.12 K/mcL Normal 0.00-0.30 [facility] Comment on above: Performed By: #### L [id number] ####[facility] [address] [place], [place] [address] Huber Prado M.D. [id number] Basophils/100 WBC (Bld) 1.0 % Normal [facility] Comment on above: Performed By: #### L [id number] ####[facility] [address] [place] [address] Huber Prado M.D. [id number] Eosinophils (Bld) [#/Vol] 0.49 10*3/uL Normal 0.00-0.50 [facility] Comment on above: Performed By: #### L [id number] ####[facility] [address] [place] [address] Huber Prado M.D. [id number] Eosinophils/100 WBC (Bld) 4.1 % Normal [facility] Comment on above: Performed By: #### L [id number] ####[facility] [address] [place], [place] [address] Huber Prado M.D. [id number] Erythrocyte distribution width (RBC) [Ratio] 14.5 % Normal 11.6-14.8 [facility] Comment on above: Performed By: #### L [id number] ####[facility] [address] [place], [place] [address] Huber Prado M.D. [id number] Hematocrit (Bld) [Volume fraction] 26.1 % Low 36.0-46.0 [facility] Comment on above: Performed By: #### L [id number] ####[facility] [address] [place] [address] Huber Prado M.D. [id number] Hemoglobin (Bld) [Mass/Vol] 8.5 g/dL Low 12.0-16.0 [facility] Comment on above: Performed By: #### L [id number] ####[facility] [address] [place], [place] [address] Huber Prado M.D. [id number] IG ABSOLUTE 0.12 K/mcL Normal 0.00-0.30 [facility] Comment on above: Performed By: #### L [id number] ####[facility] [address] [place] [address] Huber Prado M.D. [id number] IG PERCENT 1.00 % Normal [facility] Comment on above: Result Comment: The IG parameter is the percentage of metamyelocytes, myelocytes and promyelocytes. An immature granulocyte count (IG) of 1% or more suggests the possibility of infection, an IG count of 3% is very likely related to an infection. Performed By: #### L [id number] ####[facility] [address] [place] [address] Huber Prado M.D. [id number] Lymphocytes (Bld) [#/Vol] 2.09 10*3/uL Normal 0.90-4.00 [facility] Comment on above: Performed By: #### L [id number] ####[facility] [address] [place], [place] [address] Huber Prado M.D. [id number] Lymphocytes/100 WBC (Bld) 17.6 % Normal [facility] Comment on above: Performed By: #### L [id number] ####[facility] [address] [place], [place] [address] Huber Prado M.D. [id number] MCH (RBC) [Entitic mass] 30.8 pg Normal 26.0-34.0 [facility] Comment on above: Performed By: #### L [id number] ####[facility] [address] [place] [address] Huber Prado M.D. [id number] MCV (RBC) [Entitic vol] 94.6 fL Normal 80.0-100.0 [facility] Comment on above: Performed By: #### Tasha [id number] ####[facility] [address] [place] [address] Huber Prado M.D. [id number] MEAN CORPUSCULAR HEMOGLOBIN CONC 32.6 g/dL Normal 31.0-37.0 [facility] Comment on above: Performed By: #### Tasha [id number] ####[facility] [address] [place] [address] Huber Prado M.D. [id number] Monocytes (Bld) [#/Vol] 0.79 10*3/uL Normal 0.30-0.90 [facility] Comment on above: Performed By: #### Tasha [id number] ####[facility] [address] [place] [address] Huber Prado M.D. [id number] Monocytes/100 WBC (Bld) 6.6 % Normal [facility] Comment on above: Performed By: #### L [id number] ####[facility] [address] [place] [address] Huber Prado M.D. [id number] NEUTROPHILS ABSOLUTE COUNT 8.28 K/mcL High 1.70-7.00 [facility] Comment on above: Performed By: #### Tasha [id number] ####[facility] [address] [place] [address] Huber Prado M.D. [id number] Neutrophils/100 WBC (Bld) 69.7 % Normal [facility] Comment on above: Performed By: #### L [id number] ####[facility] [address] [place] [address] Huber Prado M.D. [id number] Platelet mean volume (Bld) [Entitic vol] 11.3 fL Normal 9.4-12.4 [facility] Comment on above: Performed By: #### L [id number] ####[facility] [address] [place], [place] [address] Huber Prado M.D. [id number] Platelets (Bld) [#/Vol] 189 10*3/uL Normal 150-400 [facility] Comment on above: Performed By: #### L [id number] ####[facility] [address] [place], [place] [address] Huber Prado M.D. [id number] RBC (Bld) [#/Vol] 2.76 10*6/uL Low 4.00-5.[address] [facility] Comment on above: Performed By: #### L [id number] ####[facility] [address] [place], [place] [address] Huber Prado M.D. [id number] WBC (Bld) [#/Vol] 11.89 10*3/uL High 4.50-11.00 [facility] Comment on above: Performed By: #### L [id number] ####[facility] [address] [place], [place] [address] Huber Prado M.D. [id number] COMPREHENSIVE METABOLIC PANE [facility] 05-16-2024 Albumin [Mass/Vol] 3.8 g/dL Normal 3.2-5.2 [facility] Comment on above: Order Comment: [facility] Services has implemented the eGFR calculation approach that does not have a coefficient for race that conforms to the NKF-ASN Task Force Recommendations. Performed By: #### 4 6126 ####[facility] [address] [place], [place] [address] Huber Prado M.D. [id number] ALP [Catalytic activity/Vol] 156 U/L High 40-140 [facility] Comment on above: Order Comment: [facility] has implemented the eGFR calculation approach that does not have a coefficient for race that conforms to the NKF-ASN Task Force Recommendations. Performed By: #### 4 6126 ####[facility] [address] [place], [place] [address] Huber Prado M.D. [id number] ALT [Catalytic activity/Vol] 20 U/L Normal 0-35 U/L [facility] Comment on above: Order Comment: [facility] has implemented the eGFR calculation approach that does not have a coefficient for race that conforms to the NKF-ASN Task Force Recommendations. Performed By: #### 4 6126 ####[facility] [address] [place], [place] [address] Huber Prado M.D. [id number] Anion gap [Moles/Vol] 18 mmol/L Normal 10-20 [facility] Comment on above: Order Comment: [facility] has implemented the eGFR calculation approach that does not have a coefficient for race that conforms to the NKF-ASN Task Force Recommendations. Performed By: #### 4 6126 ####[facility] [address] [place], [place] [address] Huber Prado M.D. [id number] AST [Catalytic activity/Vol] 18 U/L Normal 0-35 U/L [facility] Comment on above: Order Comment: [facility] has implemented the eGFR calculation approach that does not have a coefficient for race that conforms to the NKF-ASN Task Force Recommendations. Performed By: #### 4 6126 ####[facility] [address] [place] [address] Huber Prado M.D. [id number] BILIRUBIN TOTAL < Normal 0.0-1.3 [facility] Comment on above: Order Comment: [facility] has implemented the eGFR calculation approach that does not have a coefficient for race that conforms to the NKF-ASN Task Force Recommendations. Performed By: #### 4 6126 ####[facility] [address] [place] [address] Huber Prado M.D. [id number] Calcium [Mass/Vol] 9.5 mg/dL Normal 8.4-10.2 [facility] Comment on above: Order Comment: [facility] Services has implemented the eGFR calculation approach that does not have a coefficient for race that conforms to the NKF-ASN Task Force Recommendations. Performed By: #### 4 6126 ####[facility] [address] [place] [address] Huber Prado M.D. [id number] Chloride [Moles/Vol] 105 mmol/L Normal 98-108 [facility] Comment on above: Order Comment: [facility] Services has implemented the eGFR calculation approach that does not have a coefficient for race that conforms to the NKF-ASN Task Force Recommendations. Performed By: #### 4 6126 ####[facility] [address] [place] [address] Huber Prado M.D. [id number] Creatinine [Mass/Vol] 0.72 mg/dL Normal 0.40-1.10 [facility] Comment on above: Order Comment: [facility] has implemented the eGFR calculation approach that does not have a coefficient for race that conforms to the NKF-ASN Task Force Recommendations. Performed By: #### 4 6126 ####[facility] [address] [place] [address] Huber Prado M.D. [id number] EGFR 113 mL/min/1.73 m2 Normal >=60 [facility] Comment on above: Order Comment: [facility] has implemented the eGFR calculation approach that does not have a coefficient for race that conforms to the NKF-ASN Task Force Recommendations. Result Comment: Neema mated GFR was calculated using the 2020 CKD-EPI creatinine equation. Performed By: #### 4 6126 ####[facility] [address] [place] [address] Huber Prado M.D. [id number] Glucose [Mass/Vol] 130 mg/dL High 65-99 [facility] Comment on above: Order Comment: [facility] Services has implemented the eGFR calculation approach that does not have a coefficient for race that conforms to the NKF-ASN Task Force Recommendations. Performed By: #### 4 6126 ####[facility] [address] [place] [address] Huber Prado M.D. [id number] HCO3 (Bld) [Moles/Vol] 22 mmol/L Normal 21-32 [facility] Comment on above: Order Comment: [facility] Services has implemented the eGFR calculation approach that does not have a coefficient for race that conforms to the NKF-ASN Task Force Recommendations. Performed By: #### 4 6126 ####[facility] [address] [place] [address] Huber Prado M.D. [id number] Potassium [Moles/Vol] 4.4 mmol/L Normal 3.5-5.1 [facility] Comment on above: Order Comment: [facility] Services has implemented the eGFR calculation approach that does not have a coefficient for race that conforms to the NKF-ASN Task Force Recommendations. Performed By: #### 4 6126 ####[facility] [address] [place], [place] [address] Huber Prado M.D. [id number] Protein [Mass/Vol] 7.3 g/dL Normal 6.0-8.0 [facility] Comment on above: Order Comment: [facility] Services has implemented the eGFR calculation approach that does not have a coefficient for race that conforms to the NKF-ASN Task Force Recommendations. Performed By: #### 4 6126 ####[facility] [address] [place], [place] [address] Huber Prado M.D. [id number] Sodium [Moles/Vol] 141 mmol/L Normal 135-145 [facility] Comment on above: Order Comment: [facility] Services has implemented the eGFR calculation approach that does not have a coefficient for race that conforms to the NKF-ASN Task Force Recommendations. Performed By: #### 4 6126 ####[facility] [address] [place] [address] Huber Prado M.D. [id number] Urea nitrogen [Mass/Vol] 25 mg/dL Normal 8-25 [facility] Comment on above: Order Comment: [facility] Services has implemented the eGFR calculation approach that does not have a coefficient for race that conforms to the NKF-ASN Task Force Recommendations. Performed By: #### 4 6126 ####[facility] [address] [place] [address] Huber Prado M.D. [id number] Urea nitrogen/Creatinine [Mass ratio] 34.7 mg/mg High 10.0-20.0 [facility] Comment on above: Order Comment: [facility] Services has implemented the eGFR calculation approach that does not have a coefficient for race that conforms to the NKF-ASN Task Force Recommendations. Performed By: #### 4 6126 ####[facility] [address] [place] [address] Huber Prado M.D. [id number] Disch [facility] 05-16-2024 Disch Summ Normal [facility] PHOSPHORUSon 05-16-2024 Phosphate [Mass/Vol] 3.5 mg/dL Normal 2.7-4.5 [facility] Comment on above: Performed By: #### 4 6299 ####[facility] [address] [place] [address] Huber Prado M.D. [id number] [facility] Glucose [Mass/Vol] 158 mg/dL High 65-99 [facility] Comment on above: Performed By: #### 4 6932 ####[facility] [address] [place] [address] [id number] [facility] Glucose [Mass/Vol] 124 mg/dL [address] Comment on above: Performed By: #### 4 6932 ####[facility] [address] [place] [address] [id number] [facility] Glucose [Mass/Vol] 113 mg/dL [facility] Comment on above: Performed By: #### 4 6932 ####[facility] [address] [place] [address] [id number] [facility] CBC WITH AUTO DIFFERENTIALon 05-15-2024 AUTO NRBC 0.0 % Normal [facility] Comment on above: Performed By: #### L [id number] ####[facility] [address] [place] [address] Huber Prado M.D. [id number] AUTO NRBC ABS COUNT 0.00 K/mcL Normal 0.00-0.[address] [facility] Comment on above: Performed By: #### L [id number] ####[facility] [address] [place] [address] Huber Prado M.D. [id number] BASOPHILS ABSOLUTE COUNT 0.11 K/mcL Normal 0.00-0.30 [facility] Comment on above: Performed By: #### L [id number] ####[facility] [address] [place] [address] Huber Prado M.D. [id number] Basophils/100 WBC (Bld) 1.0 % Normal [facility] Comment on above: Performed By: #### L [id number] ####[facility] [address] [place] [address] Huber Prado M.D. [id number] Eosinophils (Bld) [#/Vol] 0.32 10*3/uL Normal 0.00-0.50 [facility] Comment on above: Performed By: #### L [id number] ####[facility] [address] [place] [address] Huber Prado M.D. [id number] Eosinophils/100 WBC (Bld) 2.8 % Normal [facility] Comment on above: Performed By: #### Tasah [id number] ####[facility] [address] [place] [address] Huber Prado M.D. [id number] Erythrocyte distribution width (RBC) [Ratio] 14.5 % Normal 11.6-14.8 [facility] Comment on above: Performed By: #### Tasha [id number] ####[facility] [address] [place] [address] Huber Prado M.D. [id number] Hematocrit (Bld) [Volume fraction] 26.8 % Low 36.0-46.0 [facility] Comment on above: Performed By: #### Tasha [id number] ####[facility] [address] [place] [address] Huber Prado M.D. [id number] Hemoglobin (Bld) [Mass/Vol] 8.6 g/dL Low 12.0-16.0 [facility] Comment on above: Performed By: #### Tasha [id number] ####[facility] [address] [place] [address] Huber Prado M.D. [id number] IG ABSOLUTE 0.09 K/mcL Normal 0.00-0.30 [facility] Comment on above: Performed By: #### L [id number] ####[facility] [address] [place] [address] Huber Prado M.D. [id number] IG PERCENT 0.80 % Normal [facility] Comment on above: Result Comment: The IG parameter is the percentage of metamyelocytes, myelocytes and promyelocytes. An immature granulocyte count (IG) of 1% or more suggests the possibility of infection, an IG count of 3% is very likely related to an infection. Performed By: #### L [id number] ####[facility] [address] [place] [address] Huber Prado M.D. [id number] Lymphocytes (Bld) [#/Vol] 1.72 10*3/uL Normal 0.90-4.00 [facility] Comment on above: Performed By: #### L [id number] ####[facility] [address] [place] [address] Huber Prado M.D. [id number] Lymphocytes/100 WBC (Bld) 15.1 % Normal [facility] Comment on above: Performed By: #### L [id number] ####[facility] [address] [place] [address] Huber Prado M.D. [id number] MCH (RBC) [Entitic mass] 30.8 pg Normal 26.0-34.0 [facility] Comment on above: Performed By: #### L [id number] ####[facility] [address] [place] [address] Huber Prado M.D. [id number] MCV (RBC) [Entitic vol] 96.1 fL Normal 80.0-100.0 [facility] Comment on above: Performed By: #### L [id number] ####[facility] [address] [place] [address] Huber Prado M.D. [id number] MEAN CORPUSCULAR HEMOGLOBIN CONC 32.1 g/dL Normal 31.0-37.0 [facility] Comment on above: Performed By: #### L [id number] ####[facility] [address] [place] [address] Huber Prado M.D. [id number] Monocytes (Bld) [#/Vol] 0.81 10*3/uL Normal 0.30-0.90 [facility] Comment on above: Performed By: #### L [id number] ####[facility] [address] [place], [place] [address] Huber Prado M.D. [id number] Monocytes/100 WBC (Bld) 7.1 % Normal [facility] Comment on above: Performed By: #### Tasha [id number] ####[facility] [address] [place] [address] Huber Prado M.D. [id number] NEUTROPHILS ABSOLUTE COUNT 8.37 K/mcL High 1.70-7.00 [facility] Comment on above: Performed By: #### Tasha [id number] ####[facility] [address] [place] [address] Huber Prado M.D. [id number] Neutrophils/100 WBC (Bld) 73.2 % Normal [facility] Comment on above: Performed By: #### Tasha [id number] ####[facility] [address] [place] [address] Huber Prado M.D. [id number] Platelet mean volume (Bld) [Entitic vol] 12.1 fL Normal 9.4-12.4 [facility] Comment on above: Performed By: #### L [id number] ####[facility] [address] [place] [address] Huber Prado M.D. [id number] Platelets (Bld) [#/Vol] 169 10*3/uL Normal 150-400 [facility] Comment on above: Performed By: #### L [id number] ####[facility] [address] [place] [address] Huber Prado M.D. [id number] RBC (Bld) [#/Vol] 2.79 10*6/uL Low 4.00-5.[address] [facility] Comment on above: Performed By: #### L [id number] ####[facility] [address] [place] [address] Huber rPado M.D. [id number] WBC (Bld) [#/Vol] 11.42 10*3/uL High 4.50-11.00 [facility] Comment on above: Performed By: #### L [id number] ####[facility] [address] [place] [address] Huber Prado M.D. [id number] COMPREHENSIVE METABOLIC PANE [facility] 05-15-2024 Albumin [Mass/Vol] 3.8 g/dL Normal 3.2-5.2 [facility] Comment on above: Order Comment: [facility] Services has implemented the eGFR calculation approach that does not have a coefficient for race that conforms to the NKF-ASN Task Force Recommendations. Performed By: #### 4 6126 ####[facility] [address] [place] [address] Huber Prado M.D. [id number] ALP [Catalytic activity/Vol] 142 U/L High 40-140 [facility] Comment on above: Order Comment: [facility] Services has implemented the eGFR calculation approach that does not have a coefficient for race that conforms to the NKF-ASN Task Force Recommendations. Performed By: #### 4 6126 ####[facility] [address] [place] [address] Huber Prado M.D. [id number] ALT [Catalytic activity/Vol] 22 U/L Normal 0-35 U/L [facility] Comment on above: Order Comment: [facility] Services has implemented the eGFR calculation approach that does not have a coefficient for race that conforms to the NKF-ASN Task Force Recommendations. Performed By: #### 4 6126 ####[facility] [address] [place] [address] 17694 Huber Prado M.D. [id number] Anion gap [Moles/Vol] 19 mmol/L Normal 10-20 [facility] Comment on above: Order Comment: [facility] Services has implemented the eGFR calculation approach that does not have a coefficient for race that conforms to the NKF-ASN Task Force Recommendations. Performed By: #### 4 6126 ####[facility] [address] [place] [address] 42078 Huber Prado M.D. [id number] AST [Catalytic activity/Vol] 11 U/L Normal 0-35 U/L [facility] Comment on above: Order Comment: [facility] Laboratory [facility] has implemented the eGFR calculation approach that does not have a coefficient for race that conforms to the NKF-ASN Task Force Recommendations. Performed By: #### 4 6126 ####[facility] [address] [place] [address] 78893 Huber Prado M.D. [id number] BILIRUBIN TOTAL < Normal 0.0-1.3 [facility] Comment on above: Order Comment: [facility] has implemented the eGFR calculation approach that does not have a coefficient for race that conforms to the NKF-ASN Task Force Recommendations. Performed By: #### 4 6126 ####[facility] [address] [place] [address] 41670 Huber Prado M.D. [id number] Calcium [Mass/Vol] 9.0 mg/dL Normal 8.4-10.2 [facility] Comment on above: Order Comment: [facility] Services has implemented the eGFR calculation approach that does not have a coefficient for race that conforms to the NKF-ASN Task Force Recommendations. Performed By: #### 4 6126 ####[facility] [address] [place] [address] 29257 Huber Prado M.D. [id number] Chloride [Moles/Vol] 107 mmol/L Normal 98-108 [facility] Comment on above: Order Comment: [facility] Services has implemented the eGFR calculation approach that does not have a coefficient for race that conforms to the NKF-ASN Task Force Recommendations. Performed By: #### 4 6126 ####[facility] [address] [place], [place] [address] Huber Prado M.D. [id number] Creatinine [Mass/Vol] 0.83 mg/dL Normal 0.40-1.10 [facility] Comment on above: Order Comment: [facility] Services has implemented the eGFR calculation approach that does not have a coefficient for race that conforms to the NKF-ASN Task Force Recommendations. Performed By: #### 4 6126 ####[facility] [address] [place], [place] [address] Huber Prado M.D. [id number] EGFR 95 mL/min/1.73 m2 Normal >=60 [facility] Comment on above: Order Comment: [facility] Services has implemented the eGFR calculation approach that does not have a coefficient for race that conforms to the NKF-ASN Task Force Recommendations. Result Comment: Neema mated GFR was calculated using the 2020 CKD-EPI creatinine equation. Performed By: #### 4 6126 ####[facility] [address] [place] [address] 96812 Huber Prado M.D. [id number] Glucose [Mass/Vol] 123 mg/dL High 65-99 [facility] Comment on above: Order Comment: [facility] Services has implemented the eGFR calculation approach that does not have a coefficient for race that conforms to the NKF-ASN Task Force Recommendations. Performed By: #### 4 6126 ####[facility] [address] [place] [address] 25641 Huber Prado M.D. [id number] HCO3 (Bld) [Moles/Vol] 22 mmol/L Normal 21-32 [facility] Comment on above: Order Comment: [facility] has implemented the eGFR calculation approach that does not have a coefficient for race that conforms to the NKF-ASN Task Force Recommendations. Performed By: #### 4 6126 ####[facility] [address] [place], [place] [address] Huber Prado M.D. [id number] Potassium [Moles/Vol] 4.3 mmol/L Normal 3.5-5.1 [facility] Comment on above: Order Comment: [facility] has implemented the eGFR calculation approach that does not have a coefficient for race that conforms to the NKF-ASN Task Force Recommendations. Performed By: #### 4 6126 ####[facility] [address] [place], [place] [address] Huber Prado M.D. [id number] Protein [Mass/Vol] 7.0 g/dL Normal 6.0-8.0 [facility] Comment on above: Order Comment: [facility] has implemented the eGFR calculation approach that does not have a coefficient for race that conforms to the NKF-ASN Task Force Recommendations. Performed By: #### 4 6126 ####[facility] [address] [place], [place] [address] Huber Prado M.D. [id number] Sodium [Moles/Vol] 144 mmol/L Normal 135-145 [facility] Comment on above: Order Comment: [facility] has implemented the eGFR calculation approach that does not have a coefficient for race that conforms to the NKF-ASN Task Force Recommendations. Performed By: #### 4 6126 ####[facility] [address] [place] [address] 41338 Huber Prado M.D. [id number] Urea nitrogen [Mass/Vol] 27 mg/dL High 8-25 [facility] Comment on above: Order Comment: [facility] has implemented the eGFR calculation approach that does not have a coefficient for race that conforms to the NKF-ASN Task Force Recommendations. Performed By: #### 4 6126 ####[facility] [address] [place] [address] 41448 Huber Prado M.D. [id number] Urea nitrogen/Creatinine [Mass ratio] 32.5 mg/mg High 10.0-20.0 [facility] Comment on above: Order Comment: [facility] Services has implemented the eGFR calculation approach that does not have a coefficient for race that conforms to the NKF-ASN Task Force Recommendations. Performed By: #### 4 6126 ####[facility] [address] [place] [address] 29969 Huber Prado M.D. [id number] Disch Summon 05-15-2024 Disch Summ Normal [facility] PHOSPHORUSon 05-15-2024 Phosphate [Mass/Vol] 3.9 mg/dL Normal 2.7-4.5 [facility] Comment on above: Performed By: #### 4 6299 ####[facility] [address] [place] [address] 11287 Huber Prado M.D. [id number] POC GLUCOSE [facility] 024 Glucose [Mass/Vol] 115 mg/dL [address] Comment on above: Performed By: #### 4 6932 ####[facility] [address] [place] [address] [id number] RMHPOC Glucose [Mass/Vol] 112 mg/dL High [address] [place] [address] Comment on above: Performed By: #### 4 6910 ####[facility] [address] [place] [address] [id number] RMHPOC Glucose [Mass/Vol] 139 mg/dL [address] Comment on above: Performed By: #### 4 6952 ####[facility] [address] [place] [address] [id number] RMHPOC Glucose [Mass/Vol] 129 mg/dL [address] Comment on above: Performed By: #### 4 6932 ####[facility] [address] [place] [address] 74536 [id number] RMHPOC Glucose [Mass/Vol] 127 mg/dL High 65-99 [facility] Comment on above: Performed By: #### 4 6932 ####[facility] [address] [place] [address] [id number] RMHPOC Glucose [Mass/Vol] 98 mg/dL Normal 65-99 [facility] Comment on above: Performed By: #### 4 6932 ####[facility] [address] [place] [address] [id number] RMHPOC BLOOD CULTURE AEROBIC/ANAERO BICon 05-14-2024 BLOOD CULTURE AEROBIC/ANAEROBIC BLOOD CULTURE No Growth after 5 days Normal [facility] Comment on above: Performed By: #### 4 4014 ####[facility] [address] [place] [address] Huber Prado M.D. [id number] CBC WITH AUTO DIFFERENTIALon 05-14-2024 AUTO NRBC 0.0 % Normal [facility] Comment on above: Performed By: #### L [id number] ####[facility] [address] [place] [address] Huber Prado M.D. [id number] AUTO NRBC ABS COUNT 0.00 K/mcL Normal 0.00-0.[address] [facility] Comment on above: Performed By: #### L [id number] ####[facility] [address] [place] [address] Huber Prado M.D. [id number] BASOPHILS ABSOLUTE COUNT 0.11 K/mcL Normal 0.00-0.30 [facility] Comment on above: Performed By: #### L [id number] ####[facility] [address] [place] [address] Huber Prado M.D. [id number] Basophils/100 WBC (Bld) 1.1 % Normal [facility] Comment on above: Performed By: #### L [id number] ####[facility] [address] [place] [address] 79522 Huber Prado M.D. [id number] Eosinophils (Bld) [#/Vol] 0.21 10*3/uL Normal 0.00-0.50 [facility] Comment on above: Performed By: #### L [id number] ####[facility] [address] [place] [address] 84528 Huber Prado M.D. [id number] Eosinophils/100 WBC (Bld) 2.1 % Normal [facility] Comment on above: Performed By: #### Tasha [id number] ####[facility] [address] [place] [address] Huber Prado M.D. [id number] Erythrocyte distribution width (RBC) [Ratio] 14.8 % Normal 11.6-14.8 [facility] Comment on above: Performed By: #### Tasha [id number] ####[facility] [address] [place], [place] [address] Huber Prado M.D. [id number] Hematocrit (Bld) [Volume fraction] 27.5 % Low 36.0-46.0 [facility] Comment on above: Performed By: #### L [id number] ####[facility] [address] [place], [place] [address] Huber Prado M.D. [id number] Hemoglobin (Bld) [Mass/Vol] 8.8 g/dL Low 12.0-16.0 [facility] Comment on above: Performed By: #### L [id number] ####[facility] [address] [place], [place] [address] Huber Prado M.D. [id number] IG ABSOLUTE 0.15 K/mcL Normal 0.00-0.30 [facility] Comment on above: Performed By: #### L [id number] ####[facility] [address] [place] [address] Huber Prado M.D. [id number] IG PERCENT 1.50 % Normal [facility] Comment on above: Result Comment: The IG parameter is the percentage of metamyelocytes, myelocytes and promyelocytes. An immature granulocyte count (IG) of 1% or more suggests the possibility of infection, an IG count of 3% is very likely related to an infection. Performed By: #### L [id number] ####[facility] [address] [place] [address] Huber Prado M.D. [id number] Lymphocytes (Bld) [#/Vol] 2.80 10*3/uL Normal 0.90-4.00 [facility] Comment on above: Performed By: #### L [id number] ####[facility] [address] [place] [address] Huber Prado M.D. [id number] Lymphocytes/100 WBC (Bld) 27.7 % Normal [facility] Comment on above: Performed By: #### L [id number] ####[facility] [address] [place] [address] Huber Prado M.D. [id number] MCH (RBC) [Entitic mass] 30.4 pg Normal 26.0-34.0 [facility] Comment on above: Performed By: #### L [id number] ####[facility] [address] [place] [address] Huber Prado M.D. [id number] MCV (RBC) [Entitic vol] 95.2 fL Normal 80.0-100.0 [facility] Comment on above: Performed By: #### L [id number] ####[facility] [address] [place] [address] Huber Prado M.D. [id number] MEAN CORPUSCULAR HEMOGLOBIN CONC 32.0 g/dL Normal 31.0-37.0 [facility] Comment on above: Performed By: #### L [id number] ####[facility] [address] [place] [address] Huber Prado M.D. [id number] Monocytes (Bld) [#/Vol] 0.76 10*3/uL Normal 0.30-0.90 [facility] Comment on above: Performed By: #### Tasha [id number] ####[facility] [address] [place] [address] Huber Prado M.D. [id number] Monocytes/100 WBC (Bld) 7.5 % Normal [facility] Comment on above: Performed By: #### Tasha [id number] ####[facility] [address] [place] [address] Huber Prado M.D. [id number] NEUTROPHILS ABSOLUTE COUNT 6.07 K/mcL Normal 1.70-7.00 [facility] Comment on above: Performed By: #### Tasha [id number] ####[facility] [address] [place], [place] [address] Huber Prado M.D. [id number] Neutrophils/100 WBC (Bld) 60.1 % Normal [facility] Comment on above: Performed By: #### L [id number] ####[facility] [address] [place] [address] Huber Prado M.D. [id number] Platelet mean volume (Bld) [Entitic vol] 11.0 fL Normal 9.4-12.4 [facility] Comment on above: Performed By: #### L [id number] ####[facility] [address] [place] [address] Huber Prado M.D. [id number] Platelets (Bld) [#/Vol] 231 10*3/uL Normal 150-400 [facility] Comment on above: Performed By: #### L [id number] ####[facility] [address] [place] [address] 43748 Huber Prado M.D. [id number] RBC (Bld) [#/Vol] 2.89 10*6/uL Low 4.00-5.[address] [facility] Comment on above: Performed By: #### L [id number] ####[facility] [address] [place] [address] 87046 Huber Prado M.D. [id number] WBC (Bld) [#/Vol] 10.10 10*3/uL Normal 4.50-11.00 [facility] Comment on above: Performed By: #### L [id number] ####[facility] [address] [place] [address] 14017 Huber Prado M.D. [id number] COMPREHENSIVE METABOLIC PANE [facility] 05-14-2024 Albumin [Mass/Vol] 3.9 g/dL Normal 3.2-5.2 [facility] Comment on above: Order Comment: [facility] Services has implemented the eGFR calculation approach that does not have a coefficient for race that conforms to the NKF-ASN Task Force Recommendations. Performed By: #### 4 6126 ####[facility] [address] [place] [address] 38679 Huber Prado M.D. [id number] ALP [Catalytic activity/Vol] 151 U/L High 40-140 [facility] Comment on above: Order Comment: [facility] Services has implemented the eGFR calculation approach that does not have a coefficient for race that conforms to the NKF-ASN Task Force Recommendations. Performed By: #### 4 6126 ####[facility] [address] [place] [address] 58799 Huber Prado M.D. [id number] ALT [Catalytic activity/Vol] 22 U/L Normal 0-35 U/L [facility] Comment on above: Order Comment: [facility] Services has implemented the eGFR calculation approach that does not have a coefficient for race that conforms to the NKF-ASN Task Force Recommendations. Performed By: #### 4 6126 ####[facility] [address] [place], [place] [address] Huber Prado M.D. [id number] Anion gap [Moles/Vol] 19 mmol/L Normal 10-20 [facility] Comment on above: Order Comment: [facility] Services has implemented the eGFR calculation approach that does not have a coefficient for race that conforms to the NKF-ASN Task Force Recommendations. Performed By: #### 4 6126 ####[facility] [address] [place], [place] [address] Huber Prado M.D. [id number] AST [Catalytic activity/Vol] 13 U/L Normal 0-35 U/L [facility] Comment on above: Order Comment: [facility] has implemented the eGFR calculation approach that does not have a coefficient for race that conforms to the NKF-ASN Task Force Recommendations. Performed By: #### 4 6126 ####[facility] [address] [place] [address] 59630 Huber Prado M.D. [id number] BILIRUBIN TOTAL < Normal 0.0-1.3 [facility] Comment on above: Order Comment: [facility] has implemented the eGFR calculation approach that does not have a coefficient for race that conforms to the NKF-ASN Task Force Recommendations. Performed By: #### 4 61 ####[facility] [address] [place] [address] 52997 Huber Prado M.D. [id number] Calcium [Mass/Vol] 9.4 mg/dL Normal 8.4-10.2 [facility] Comment on above: Order Comment: [facility] Services has implemented the eGFR calculation approach that does not have a coefficient for race that conforms to the NKF-ASN Task Force Recommendations. Performed By: #### 4 6126 ####[facility] [address] [place] [address] 97575 Huber Prado M.D. [id number] Chloride [Moles/Vol] 107 mmol/L Normal 98-108 [facility] Comment on above: Order Comment: [facility] has implemented the eGFR calculation approach that does not have a coefficient for race that conforms to the NKF-ASN Task Force Recommendations. Performed By: #### 4 6126 ####[facility] [address] [place] [address] 12578 uHber Prado M.D. [id number] Creatinine [Mass/Vol] 0.91 mg/dL Normal 0.40-1.10 [facility] Comment on above: Order Comment: [facility] has implemented the eGFR calculation approach that does not have a coefficient for race that conforms to the NKF-ASN Task Force Recommendations. Performed By: #### 4 6126 ####[facility] [address] [place] [address] 05234 Huber Prado M.D. [id number] EGFR 85 mL/min/1.73 m2 Normal >=60 [facility] Comment on above: Order Comment: [facility] has implemented the eGFR calculation approach that does not have a coefficient for race that conforms to the NKF-ASN Task Force Recommendations. Result Comment: Neema mated GFR was calculated using the 2020 CKD-EPI creatinine equation. Performed By: #### 4 6126 ####[facility] [address] [place] [address] 64743 Huber Prado M.D. [id number] Glucose [Mass/Vol] 127 mg/dL High 65-99 [facility] Comment on above: Order Comment: [facility] Services has implemented the eGFR calculation approach that does not have a coefficient for race that conforms to the NKF-ASN Task Force Recommendations. Performed By: #### 4 6126 ####[facility] [address] [place] [address] 37155 Huber Prado M.D. [id number] HCO3 (Bld) [Moles/Vol] 24 mmol/L Normal 21-32 [facility] Comment on above: Order Comment: [facility] Services has implemented the eGFR calculation approach that does not have a coefficient for race that conforms to the NKF-ASN Task Force Recommendations. Performed By: #### 4 6126 ####[facility] [address] [place] [address] 68167 Huber Prado M.D. [id number] Potassium [Moles/Vol] 4.1 mmol/L Normal 3.5-5.1 [facility] Comment on above: Order Comment: [facility] Services has implemented the eGFR calculation approach that does not have a coefficient for race that conforms to the NKF-ASN Task Force Recommendations. Performed By: #### 4 6126 ####[facility] [address] [place] [address] 46994 Huber Prado M.D. [id number] Protein [Mass/Vol] 7.4 g/dL Normal 6.0-8.0 [facility] Comment on above: Order Comment: [facility] has implemented the eGFR calculation approach that does not have a coefficient for race that conforms to the NKF-ASN Task Force Recommendations. Performed By: #### 4 6126 ####[facility] [address] [place] [address] 94949 Huber Prado M.D. [id number] Sodium [Moles/Vol] 146 mmol/L High 135-145 [facility] Comment on above: Order Comment: [facility] Services has implemented the eGFR calculation approach that does not have a coefficient for race that conforms to the NKF-ASN Task Force Recommendations. Performed By: #### 4 6126 ####[facility] [address] [place], [place] [address] Huber Prado M.D. [id number] Urea nitrogen [Mass/Vol] 30 mg/dL High 8-25 [facility] Comment on above: Order Comment: [facility] Services has implemented the eGFR calculation approach that does not have a coefficient for race that conforms to the NKF-ASN Task Force Recommendations. Performed By: #### 4 6126 ####[facility] [address] [place] [address] Huber Prado M.D. [id number] Urea nitrogen/Creatinine [Mass ratio] 33.0 mg/mg High 10.0-20.0 [facility] Comment on above: Order Comment: [facility] Services has implemented the eGFR calculation approach that does not have a coefficient for race that conforms to the NKF-ASN Task Force Recommendations. Performed By: #### 4 6126 ####[facility] [address] [place] [address] Huber Prado M.D. [id number] PHOSPHORUSon 05-14-2024 Phosphate [Mass/Vol] 4.0 mg/dL Normal 2.7-4.5 [facility] Comment on above: Performed By: #### 4 6299 ####[facility] [address] [place] [address] Huber Prado M.D. [id number] [facility] Glucose [Mass/Vol] 109 mg/dL High 65-99 [facility] Comment on above: Performed By: #### 4 6932 ####[facility] [address] [place] [address] [id number] RMHPOC Glucose [Mass/Vol] 120 mg/dL High 65-99 [facility] Comment on above: Performed By: #### 4 6903 ####[facility] [address] [place] [address] [id number] RMHPOC Glucose [Mass/Vol] 149 mg/dL High 65-99 [facility] Comment on above: Performed By: #### 4 [id number] ####[facility] [address] [place] [address] [id number] RMHPOC Glucose [Mass/Vol] 151 mg/dL High [facility] Comment on above: Performed By: #### 4 [id number] ####[facility] [address] [place] [address] [id number] RMHPOC Glucose [Mass/Vol] 127 mg/dL High [facility] Comment on above: Performed By: #### 4 [id number] ####[facility] [address] [place] [address] [id number] RMHPOC PROCALCITONINon 05-14-2024 PROCALCITONIN 0.07 ng/ml Normal <0.50 [facility] Comment on above: Order Comment: Resul ts <0.50 ng/ml represent a low risk of severe sepsis and/or septic shock. Performed By: #### 4 [id number] ####[facility] [address] [place] [address] Huber Prado M.D. [id number] CBC WITH AUTO DIFFERENTIALon 05-13-2024 AUTO NRBC 0.0 % Normal [facility] Comment on above: Performed By: #### L [id number] ####[facility] [address] [place] [address] Huber Prado M.D. [id number] AUTO NRBC ABS COUNT 0.00 K/mcL Normal 0.00-0.[address] [facility] Comment on above: Performed By: #### L [id number] ####[facility] [address] [place] [address] Huber Prado M.D. [id number] BASOPHILS ABSOLUTE COUNT 0.11 K/mcL Normal 0.00-0.30 [facility] Comment on above: Performed By: #### L [id number] ####[facility] [address] [place] [address] Huber Prado M.D. [id number] Basophils/100 WBC (Bld) 1.2 % Normal [facility] Comment on above: Performed By: #### L [id number] ####[facility] [address] [place] [address] Huber Prado M.D. [id number] Eosinophils (Bld) [#/Vol] 0.27 10*3/uL Normal 0.00-0.50 [facility] Comment on above: Performed By: #### L [id number] ####[facility] [address] [place] [address] Huber Prado M.D. [id number] Eosinophils/100 WBC (Bld) 3.0 % Normal [facility] Comment on above: Performed By: #### L [id number] ####[facility] [address] [place] [address] Huber Prado M.D. [id number] Erythrocyte distribution width (RBC) [Ratio] 14.8 % Normal 11.6-14.8 [facility] Comment on above: Performed By: #### L [id number] ####[facility] [address] [place] [address] Huber Prado M.D. [id number] Hematocrit (Bld) [Volume fraction] 26.6 % Low 36.0-46.0 [facility] Comment on above: Performed By: #### L [id number] ####[facility] [address] [place] [address] Huber Prado M.D. [id number] Hemoglobin (Bld) [Mass/Vol] 8.3 g/dL Low 12.0-16.0 [facility] Comment on above: Performed By: #### L [id number] ####[facility] [address] [place] [address] Huber Prado M.D. [id number] IG ABSOLUTE 0.19 K/mcL Normal 0.00-0.30 [facility] Comment on above: Performed By: #### L [id number] ####[facility] [address] [place] [address] Huber Prado M.D. [id number] IG PERCENT 2.10 % Normal [facility] Comment on above: Result Comment: The IG parameter is the percentage of metamyelocytes, myelocytes and promyelocytes. An immature granulocyte count (IG) of 1% or more suggests the possibility of infection, an IG count of 3% is very likely related to an infection. Performed By: #### L [id number] ####[facility] [address] [place] [address] Huber Prado M.D. [id number] Lymphocytes (Bld) [#/Vol] 2.51 10*3/uL Normal 0.90-4.00 [facility] Comment on above: Performed By: #### Tasha [id number] ####[facility] [address] [place] [address] Huber Prado M.D. [id number] Lymphocytes/100 WBC (Bld) 28.0 % Normal [facility] Comment on above: Performed By: #### L [id number] ####[facility] [address] [place] [address] Huber Prado M.D. [id number] MCH (RBC) [Entitic mass] 30.2 pg Normal 26.0-34.0 [facility] Comment on above: Performed By: #### L [id number] ####[facility] [address] [place] [address] Huber Prado M.D. [id number] MCV (RBC) [Entitic vol] 96.7 fL Normal 80.0-100.0 [facility] Comment on above: Performed By: #### L [id number] ####[facility] [address] [place], [place] [address] Huber Prado M.D. [id number] MEAN CORPUSCULAR HEMOGLOBIN CONC 31.2 g/dL Normal 31.0-37.0 [facility] Comment on above: Performed By: #### L [id number] ####[facility] [address] [place] [address] Huber Prado M.D. [id number] Monocytes (Bld) [#/Vol] 0.76 10*3/uL Normal 0.30-0.90 [facility] Comment on above: Performed By: #### L [id number] ####[facility] [address] [place], [place] [address] Huber Prado M.D. [id number] Monocytes/100 WBC (Bld) 8.5 % Normal [facility] Comment on above: Performed By: #### L [id number] ####[facility] [address] [place], [place] [address] Huber Prado M.D. [id number] NEUTROPHILS ABSOLUTE COUNT 5.13 K/mcL Normal 1.70-7.00 [facility] Comment on above: Performed By: #### L [id number] ####[facility] [address] [place], [place] [address] Huber Prado M.D. [id number] Neutrophils/100 WBC (Bld) 57.2 % Normal [facility] Comment on above: Performed By: #### L [id number] ####[facility] [address] [place], [place] [address] Huber Prado M.D. [id number] Platelet mean volume (Bld) [Entitic vol] 11.7 fL Normal 9.4-12.4 [facility] Comment on above: Performed By: #### L [id number] ####[facility] [address] [place] [address] Huber Prado M.D. [id number] Platelets (Bld) [#/Vol] 214 10*3/uL Normal 150-400 [facility] Comment on above: Performed By: #### L [id number] ####[facility] [address] [place] [address] Huber Prado M.D. [id number] RBC (Bld) [#/Vol] 2.75 10*6/uL Low 4.00-5.[address] [facility] Comment on above: Performed By: #### L [id number] ####[facility] [address] [place] [address] Huber Praod M.D. [id number] WBC (Bld) [#/Vol] 8.97 10*3/uL Normal 4.50-11.[address] [facility] Comment on above: Performed By: #### L [id number] ####[facility] [address] [place] [address] Huber Prado M.D. [id number] COMPREHENSIVE METABOLIC PANE [facility] 05-13-2024 Albumin [Mass/Vol] 3.9 g/dL Normal 3.2-5.2 [facility] Comment on above: Order Comment: [facility] Services has implemented the eGFR calculation approach that does not have a coefficient for race that conforms to the NKF-ASN Task Force Recommendations. Performed By: #### 4 [id number] ####[facility] [address] [place] [address] Huber Prado M.D. [id number] ALP [Catalytic activity/Vol] 153 U/L High 40-140 [facility] Comment on above: Order Comment: [facility] has implemented the eGFR calculation approach that does not have a coefficient for race that conforms to the NKF-ASN Task Force Recommendations. Performed By: #### 4 6126 ####[facility] [address] [place] [address] Huber Prado M.D. [id number] ALT [Catalytic activity/Vol] 23 U/L Normal 0-35 U/L [facility] Comment on above: Order Comment: [facility] Services has implemented the eGFR calculation approach that does not have a coefficient for race that conforms to the NKF-ASN Task Force Recommendations. Performed By: #### 4 [id number] ####[facility] [address] [place], [place] [address] Huber Prado M.D. [id number] Anion gap [Moles/Vol] 20 mmol/L Normal 10-20 [facility] Comment on above: Order Comment: [facility] Services has implemented the eGFR calculation approach that does not have a coefficient for race that conforms to the NKF-ASN Task Force Recommendations. Performed By: #### 4 [id number] ####[facility] [address] [place], [place] [address] Huber Prado M.D. [id number] AST [Catalytic activity/Vol] 18 U/L Normal 0-35 U/L [facility] Comment on above: Order Comment: [facility] Services has implemented the eGFR calculation approach that does not have a coefficient for race that conforms to the NKF-ASN Task Force Recommendations. Result Comment: Slig htly Hemolyzed Performed By: #### 4 6126 ####[facility] [address] [place], [place] [address] Huber Prado M.D. [id number] BILIRUBIN TOTAL < Normal 0.0-1.3 [facility] Comment on above: Order Comment: [facility] Services has implemented the eGFR calculation approach that does not have a coefficient for race that conforms to the NKF-ASN Task Force Recommendations. Performed By: #### 4 6126 ####[facility] [address] [place], [place] [address] Huber Prado M.D. [id number] Calcium [Mass/Vol] 9.4 mg/dL Normal 8.4-10.2 [facility] Comment on above: Order Comment: [facility] Services has implemented the eGFR calculation approach that does not have a coefficient for race that conforms to the NKF-ASN Task Force Recommendations. Performed By: #### 4 6126 ####[facility] [address] [place], [place] [address] Huber Prado M.D. [id number] Chloride [Moles/Vol] 108 mmol/L Normal 98-108 [facility] Comment on above: Order Comment: [facility] Services has implemented the eGFR calculation approach that does not have a coefficient for race that conforms to the NKF-ASN Task Force Recommendations. Performed By: #### 4 6126 ####[facility] [address] [place], [place] [address] Huber Prado M.D. [id number] Creatinine [Mass/Vol] 0.87 mg/dL Normal 0.40-1.10 [facility] Comment on above: Order Comment: [facility] Services has implemented the eGFR calculation approach that does not have a coefficient for race that conforms to the NKF-ASN Task Force Recommendations. Performed By: #### 4 6126 ####[facility] [address] [place] [address] Huber Prado M.D. [id number] EGFR 90 mL/min/1.73 m2 Normal >=60 [facility] Comment on above: Order Comment: [facility] Services has implemented the eGFR calculation approach that does not have a coefficient for race that conforms to the NKF-ASN Task Force Recommendations. Result Comment: Neema mated GFR was calculated using the 2020 CKD-EPI creatinine equation. Performed By: #### 4 6126 ####[facility] [address] [place] [address] Huber Prado M.D. [id number] Glucose [Mass/Vol] 128 mg/dL High 65-99 [facility] Comment on above: Order Comment: [facility] has implemented the eGFR calculation approach that does not have a coefficient for race that conforms to the NKF-ASN Task Force Recommendations. Performed By: #### 4 6126 ####[facility] [address] [place] [address] Huber Prado M.D. [id number] HCO3 (Bld) [Moles/Vol] 24 mmol/L Normal 21-32 [facility] Comment on above: Order Comment: [facility] Services has implemented the eGFR calculation approach that does not have a coefficient for race that conforms to the NKF-ASN Task Force Recommendations. Performed By: #### 4 6126 ####[facility] [address] [place], [place] [address] Huber Prado M.D. [id number] Potassium [Moles/Vol] 3.8 mmol/L Normal 3.5-5.1 [facility] Comment on above: Order Comment: [facility] Services has implemented the eGFR calculation approach that does not have a coefficient for race that conforms to the NKF-ASN Task Force Recommendations. Result Comment: Slig htly Hemolyzed Performed By: #### 4 6126 ####[facility] [address] [place] [address] Huber Prado M.D. [id number] Protein [Mass/Vol] 7.3 g/dL Normal 6.0-8.0 [facility] Comment on above: Order Comment: [facility] Services has implemented the eGFR calculation approach that does not have a coefficient for race that conforms to the NKF-ASN Task Force Recommendations. Performed By: #### 4 6176 ####[facility] [address] [place], [place] [address] Huber Prado M.D. [id number] Sodium [Moles/Vol] 148 mmol/L High 135-145 [facility] Comment on above: Order Comment: [facility] Services has implemented the eGFR calculation approach that does not have a coefficient for race that conforms to the NKF-ASN Task Force Recommendations. Performed By: #### 4 6126 ####[facility] [address] [place] [address] Huber Prado M.D. [id number] Urea nitrogen [Mass/Vol] 32 mg/dL High 8-25 [facility] Comment on above: Order Comment: [facility] has implemented the eGFR calculation approach that does not have a coefficient for race that conforms to the NKF-ASN Task Force Recommendations. Performed By: #### 4 6126 ####[facility] [address] [place] [address] Huber Prado M.D. [id number] Urea nitrogen/Creatinine [Mass ratio] 36.8 mg/mg High 10.0-20.0 [facility] Comment on above: Order Comment: [facility] Services has implemented the eGFR calculation approach that does not have a coefficient for race that conforms to the NKF-ASN Task Force Recommendations. Performed By: #### 4 6126 ####[facility] [address] [place] [address] Huber Prado M.D. [id number] PHOSPHORUSon 05-13-2024 Phosphate [Mass/Vol] 4.0 mg/dL Normal 2.7-4.5 [facility] Comment on above: Performed By: #### 4 6299 ####[facility] [address] [place], [place] [address] Huber Prado M.D. [id number] POC GLUCOSE - [facility] 024 Glucose [Mass/Vol] 124 mg/dL High 65-99 [facility] Comment on above: Performed By: #### 4 6932 ####[facility] [address] [place] [address] [id number] RMHPOC Glucose [Mass/Vol] 129 mg/dL High 65-99 [facility] Comment on above: Performed By: #### 4 6932 ####[facility] [address] [place] [address] [id number] RMHPOC Glucose [Mass/Vol] 130 mg/dL [address] Comment on above: Performed By: #### 4 6932 ####[facility] [address] [place] [address] [id number] RMHPOC Glucose [Mass/Vol] 150 mg/dL [address] Comment on above: Performed By: #### 4 6932 ####[facility] [address] [place] [address] [id number] RMHPOC Glucose [Mass/Vol] 141 mg/dL [address] Comment on above: Performed By: #### 4 6932 ####[facility] [address] [place] [address] [id number] RMHPOC Glucose [Mass/Vol] 134 mg/dL [address] Comment on above: Performed By: #### 4 6932 ####[facility] [address] [place] [address] [id number] RMHPOC Glucose [Mass/Vol] 127 mg/dL [address] Comment on above: Performed By: #### 4 6932 ####[facility] [address] [place] [address] [id number] RM[facility] POTASSIUM LEVELon 05-13-2024 Potassium [Moles/Vol] 4.5 mmol/L Normal 3.5-5.1 [facility] Comment on above: Performed By: #### 4 6351 ####[facility] [address] [place] [address] Huber Prado M.D. [id number] PROCALCITONINon 05-13-2024 PROCALCITONIN 0.06 ng/ml Normal <0.50 [facility] Comment on above: Order Comment: Resul ts <0.50 ng/ml represent a low risk of severe sepsis and/or septic shock. Performed By: #### 4 [id number] ####[facility] [address] [place] [address] Huber Prado M.D. [id number] XR CHEST PA/APon 05-13-2024 XR CHEST PA/AP Normal [facility] Comment on above: Order Comment: Injur y/Trauma or Illness?:Illness/OtherHow long have you had these symptoms (acute/chronic)?:AcuteReason for exam?:sobHistory of cancer?:UnknownSurgeries, chemotherapy, or radiation?:YesType of Exam?:Subsequent/Follow-upAdditional signs and symptoms?:sob CBC WITH AUTO DIFFERENTIALon 05-12-2024 AUTO NRBC 0.0 % Normal [facility] Comment on above: Performed By: #### L [id number] ####[facility] [address] [place] [address] Huber Prado M.D. [id number] AUTO NRBC ABS COUNT 0.00 K/mcL Normal 0.00-0.[address] [facility] Comment on above: Performed By: #### Tasha [id number] ####[facility] [address] [place] [address] Huber Prado M.D. [id number] BASOPHILS ABSOLUTE COUNT 0.15 K/mcL Normal 0.00-0.30 [facility] Comment on above: Performed By: #### L [id number] ####[facility] [address] [place] [address] Huber Prado M.D. [id number] Basophils/100 WBC (Bld) 1.5 % Normal [facility] Comment on above: Performed By: #### L [id number] ####[facility] [address] [place] [address] Huber Prado M.D. [id number] Eosinophils (Bld) [#/Vol] 0.23 10*3/uL Normal 0.00-0.50 [facility] Comment on above: Performed By: #### L [id number] ####[facility] [address] [place] [address] Huber Prado M.D. [id number] Eosinophils/100 WBC (Bld) 2.3 % Normal [facility] Comment on above: Performed By: #### L [id number] ####[facility] [address] [place] [address] Huber Prado M.D. [id number] Erythrocyte distribution width (RBC) [Ratio] 14.5 % Normal 11.6-14.8 [facility] Comment on above: Performed By: #### L [id number] ####[facility] [address] [place] [address] Huber Prado M.D. [id number] Hematocrit (Bld) [Volume fraction] 25.2 % Low 36.0-46.0 [facility] Comment on above: Performed By: #### L [id number] ####[facility] [address] [place] [address] Huber Prado M.D. [id number] Hemoglobin (Bld) [Mass/Vol] 8.1 g/dL Low 12.0-16.0 [facility] Comment on above: Performed By: #### L [id number] ####[facility] [address] [place] [address] Huber Prado M.D. [id number] IG ABSOLUTE 0.16 K/mcL Normal 0.00-0.30 [facility] Comment on above: Performed By: #### L [id number] ####[facility] [address] [place] [address] Huber Prado M.D. [id number] IG PERCENT 1.60 % Normal [facility] Comment on above: Result Comment: The IG parameter is the percentage of metamyelocytes, myelocytes and promyelocytes. An immature granulocyte count (IG) of 1% or more suggests the possibility of infection, an IG count of 3% is very likely related to an infection. Performed By: #### L [id number] ####[facility] [address] [place] [address] Huber Prado M.D. [id number] Lymphocytes (Bld) [#/Vol] 2.66 10*3/uL Normal 0.90-4.00 [facility] Comment on above: Performed By: #### L [id number] ####[facility] [address] [place] [address] Huber Prado M.D. [id number] Lymphocytes/100 WBC (Bld) 27.1 % Normal [facility] Comment on above: Performed By: #### L [id number] ####[facility] [address] [place] [address] Huber Prado M.D. [id number] MCH (RBC) [Entitic mass] 30.0 pg Normal 26.0-34.0 [facility] Comment on above: Performed By: #### L [id number] ####[facility] [address] [place] [address] Huber Prado M.D. [id number] MCV (RBC) [Entitic vol] 93.3 fL Normal 80.0-100.0 [facility] Comment on above: Performed By: #### L [id number] ####[facility] [address] [place] [address] Huber Prado M.D. [id number] MEAN CORPUSCULAR HEMOGLOBIN CONC 32.1 g/dL Normal 31.0-37.0 [facility] Comment on above: Performed By: #### L [id number] ####[facility] [address] [place] [address] Hbuer Prado M.D. [id number] Monocytes (Bld) [#/Vol] 0.86 10*3/uL Normal 0.30-0.90 [facility] Comment on above: Performed By: #### L [id number] ####[facility] [address] [place], [place] [address] Huber Prado M.D. [id number] Monocytes/100 WBC (Bld) 8.7 % Normal [facility] Comment on above: Performed By: #### Tasha [id number] ####[facility] [address] [place] [address] Huber Prado M.D. [id number] NEUTROPHILS ABSOLUTE COUNT 5.77 K/mcL Normal 1.70-7.00 [facility] Comment on above: Performed By: #### Tasha [id number] ####[facility] [address] [place] [address] Huber Prado M.D. [id number] Neutrophils/100 WBC (Bld) 58.8 % Normal [facility] Comment on above: Performed By: #### Tasha [id number] ####[facility] [address] [place], [place] [address] Huber Prado M.D. [id number] Platelet mean volume (Bld) [Entitic vol] 11.8 fL Normal 9.4-12.4 [facility] Comment on above: Performed By: #### Tasha [id number] ####[facility] [address] [place] [address] Huber Prado M.D. [id number] Platelets (Bld) [#/Vol] 231 10*3/uL Normal 150-400 [facility] Comment on above: Performed By: #### L [id number] ####[facility] [address] [place], [place] [address] Huber Prado M.D. [id number] RBC (Bld) [#/Vol] 2.70 10*6/uL Low 4.00-5.[address] [facility] Comment on above: Performed By: #### L [id number] ####[facility] [address] [place] [address] Huber Prado M.D. [id number] WBC (Bld) [#/Vol] 9.83 10*3/uL Normal 4.50-11.[address] [facility] Comment on above: Performed By: #### L [id number] ####[facility] [address] [place] [address] Huber Prado M.D. [id number] COMPREHENSIVE METABOLIC PANE [facility] 05-12-2024 Albumin [Mass/Vol] 3.7 g/dL Normal 3.2-5.2 [facility] Comment on above: Order Comment: [facility] has implemented the eGFR calculation approach that does not have a coefficient for race that conforms to the NKF-ASN Task Force Recommendations. Performed By: #### 4 [id number] ####[facility] [address] [place] [address] Huber Prado M.D. [id number] ALP [Catalytic activity/Vol] 155 U/L High 40-140 [facility] [facility] Comment on above: Order Comment: [facility] has implemented the eGFR calculation approach that does not have a coefficient for race that conforms to the NKF-ASN Task Force Recommendations. Performed By: #### 4 6126 ####[facility] [address] [place] [address] 95419 Huber Prado M.D. [id number] ALT [Catalytic activity/Vol] 27 U/L Normal 0-35 U/L [facility] Comment on above: Order Comment: [facility] has implemented the eGFR calculation approach that does not have a coefficient for race that conforms to the NKF-ASN Task Force Recommendations. Performed By: #### 4 6126 ####[facility] [address] [place] [address] 93751 Huber Prado M.D. [id number] Anion gap [Moles/Vol] 18 mmol/L Normal 10-20 [facility] Comment on above: Order Comment: [facility] Services has implemented the eGFR calculation approach that does not have a coefficient for race that conforms to the NKF-ASN Task Force Recommendations. Performed By: #### 4 6126 ####[facility] [address] [place] [address] 99450 Huber Prado M.D. [id number] AST [Catalytic activity/Vol] 19 U/L Normal 0-35 U/L [facility] Comment on above: Order Comment: [facility] Services has implemented the eGFR calculation approach that does not have a coefficient for race that conforms to the NKF-ASN Task Force Recommendations. Performed By: #### 4 6126 ####[facility] [address] [place], [place] [address] Huber Prado M.D. [id number] BILIRUBIN TOTAL < Normal 0.0-1.3 [facility] Comment on above: Order Comment: [facility] Services has implemented the eGFR calculation approach that does not have a coefficient for race that conforms to the NKF-ASN Task Force Recommendations. Performed By: #### 4 6126 ####[facility] [address] [place] [address] 24860 Huber Prado M.D. [id number] Calcium [Mass/Vol] 9.7 mg/dL Normal 8.4-10.2 [facility] Comment on above: Order Comment: [facility] Services has implemented the eGFR calculation approach that does not have a coefficient for race that conforms to the NKF-ASN Task Force Recommendations. Performed By: #### 4 6126 ####[facility] [address] [place], [place] [address] Huber Prado M.D. [id number] Chloride [Moles/Vol] 107 mmol/L Normal 98-108 [facility] Comment on above: Order Comment: [facility] Services has implemented the eGFR calculation approach that does not have a coefficient for race that conforms to the NKF-ASN Task Force Recommendations. Performed By: #### 4 6126 ####[facility] [address] [place], [place] [address] Huber Prado M.D. [id number] Creatinine [Mass/Vol] 1.14 mg/dL High 0.40-1.10 [facility] Comment on above: Order Comment: [facility] Services has implemented the eGFR calculation approach that does not have a coefficient for race that conforms to the NKF-ASN Task Force Recommendations. Performed By: #### 4 6126 ####[facility] [address] [place], [place] [address] Huber Prado M.D. [id number] EGFR 65 mL/min/1.73 m2 Normal >=60 [facility] Comment on above: Order Comment: [facility] has implemented the eGFR calculation approach that does not have a coefficient for race that conforms to the NKF-ASN Task Force Recommendations. Result Comment: Neema mated GFR was calculated using the 2020 CKD-EPI creatinine equation. Performed By: #### 4 6126 ####[facility] [address] [place] [address] 266[address] Huber Prado M.D. [id number] Glucose [Mass/Vol] 105 mg/dL High 65-99 [facility] Comment on above: Order Comment: [facility] has implemented the eGFR calculation approach that does not have a coefficient for race that conforms to the NKF-ASN Task Force Recommendations. Performed By: #### 4 6126 ####[facility] [address] [place] [address] 82847 Huber Prado M.D. [id number] HCO3 (Bld) [Moles/Vol] 23 mmol/L Normal 21-32 [facility] Comment on above: Order Comment: [facility] Services has implemented the eGFR calculation approach that does not have a coefficient for race that conforms to the NKF-ASN Task Force Recommendations. Performed By: #### 4 6126 ####[facility] [address] [place] [address] 17365 Huber Prado M.D. [id number] Potassium [Moles/Vol] 4.2 mmol/L Normal 3.5-5.1 [facility] Comment on above: Order Comment: [facility] has implemented the eGFR calculation approach that does not have a coefficient for race that conforms to the NKF-ASN Task Force Recommendations. Performed By: #### 4 6126 ####[facility] [address] [place], [place] [address] Huber Prado M.D. [id number] Protein [Mass/Vol] 7.3 g/dL Normal 6.0-8.0 [facility] Comment on above: Order Comment: [facility] has implemented the eGFR calculation approach that does not have a coefficient for race that conforms to the NKF-ASN Task Force Recommendations. Performed By: #### 4 6126 ####[facility] [address] [place] [address] 10130 Huber Prado M.D. [id number] Sodium [Moles/Vol] 144 mmol/L Normal 135-145 [facility] Comment on above: Order Comment: [facility] has implemented the eGFR calculation approach that does not have a coefficient for race that conforms to the NKF-ASN Task Force Recommendations. Performed By: #### 4 6126 ####[facility] [address] [place] [address] 08256 Huber Prado M.D. [id number] Urea nitrogen [Mass/Vol] 33 mg/dL High 8-25 [facility] Comment on above: Order Comment: [facility] has implemented the eGFR calculation approach that does not have a coefficient for race that conforms to the NKF-ASN Task Force Recommendations. Performed By: #### 4 6126 ####[facility] [address] [place] [address] 03295 Huber Prado M.D. [id number] Urea nitrogen/Creatinine [Mass ratio] 28.9 mg/mg High 10.0-20.0 [facility] Comment on above: Order Comment: [facility] Services has implemented the eGFR calculation approach that does not have a coefficient for race that conforms to the NKF-ASN Task Force Recommendations. Performed By: #### 4 6126 ####[facility] [address] [place] [address] Huber Prado M.D. [id number] CONSULTon 05-12-2024 CONSULT Normal [facility] PHOSPHORUSon 05-12-2024 Phosphate [Mass/Vol] 2.9 mg/dL Normal 2.7-4.5 [facility] Comment on above: Performed By: #### 4 6299 ####[facility] [address] [place], [place] [address] Huber Prado M.D. [id number] POC GLUCOSE [facility] 024 Glucose [Mass/Vol] 118 mg/dL High 65-99 [facility] Comment on above: Performed By: #### 4 6932 ####[facility] [address] [place] [address] [id number] RMHPOC Glucose [Mass/Vol] 117 mg/dL High 65-99 [facility] Comment on above: Performed By: #### 4 6932 ####[facility] [address] [place] [address] [id number] RMHPOC Glucose [Mass/Vol] 155 mg/dL High 65-99 [facility] Comment on above: Performed By: #### 4 6920 ####[facility] [address] [place] [address] [id number] [facility] Glucose [Mass/Vol] 127 mg/dL High 65-99 [facility] Comment on above: Performed By: #### 4 6989 ####[facility] [address] [place] [address] [id number] RMHPOC Glucose [Mass/Vol] 121 mg/dL High 65-99 [facility] Comment on above: Performed By: #### 4 6932 ####[facility] [address] [place] [address] [id number] RMHPOC CBC WITH AUTO DIFFERENTIALon 05-11-2024 AUTO NRBC 0.0 % Normal [facility] Comment on above: Performed By: #### L [id number] ####[facility] [address] [place] [address] Huber Prado M.D. [id number] AUTO NRBC ABS COUNT 0.00 K/mcL Normal 0.00-0.[address] [facility] Comment on above: Performed By: #### L [id number] ####[facility] [address] [place] [address] Huber Prado M.D. [id number] BASOPHILS ABSOLUTE COUNT 0.13 K/mcL Normal 0.00-0.30 [facility] Comment on above: Performed By: #### L [id number] ####[facility] [address] [place] [address] Huber Prado M.D. [id number] Basophils/100 WBC (Bld) 1.6 % Normal [facility] Comment on above: Performed By: #### L [id number] ####[facility] [address] [place] [address] Huber Prado M.D. [id number] Eosinophils (Bld) [#/Vol] 0.23 10*3/uL Normal 0.00-0.50 [facility] Comment on above: Performed By: #### L [id number] ####[facility] [address] [place] [address] Huber Prado M.D. [id number] Eosinophils/100 WBC (Bld) 2.7 % Normal [facility] Comment on above: Performed By: #### L [id number] ####[facility] [address] [place] [address] Huber Prado M.D. [id number] Erythrocyte distribution width (RBC) [Ratio] 14.3 % Normal 11.6-14.8 [facility] Comment on above: Performed By: #### L [id number] ####[facility] [address] [place] [address] Huber Prado M.D. [id number] Hematocrit (Bld) [Volume fraction] 26.0 % Low 36.0-46.0 [facility] Comment on above: Performed By: #### L [id number] ####[facility] [address] [place] [address] Huber Prado M.D. [id number] Hemoglobin (Bld) [Mass/Vol] 8.5 g/dL Low 12.0-16.0 [facility] Comment on above: Performed By: #### L [id number] ####[facility] [address] [place] [address] Huber Prado M.D. [id number] IG ABSOLUTE 0.25 K/mcL Normal 0.00-0.30 [facility] Comment on above: Performed By: #### L [id number] ####[facility] [address] [place] [address] Huber Prado M.D. [id number] IG PERCENT 3.00 % Normal [facility] Comment on above: Result Comment: The IG parameter is the percentage of metamyelocytes, myelocytes and promyelocytes. An immature granulocyte count (IG) of 1% or more suggests the possibility of infection, an IG count of 3% is very likely related to an infection. Performed By: #### L [id number] ####[facility] [address] [place] [address] Huber Prado M.D. [id number] Lymphocytes (Bld) [#/Vol] 2.40 10*3/uL Normal 0.90-4.00 [facility] Comment on above: Performed By: #### Tasha [id number] ####[facility] [address] [place] [address] Huber Prado M.D. [id number] Lymphocytes/100 WBC (Bld) 28.7 % Normal [facility] Comment on above: Performed By: #### Tasha [id number] ####[facility] [address] [place] [address] Huber Prado M.D. [id number] MCH (RBC) [Entitic mass] 30.5 pg Normal 26.0-34.0 [facility] Comment on above: Performed By: #### Tasha [id number] ####[facility] [address] [place] [address] Huber Prado M.D. [id number] MCV (RBC) [Entitic vol] 93.2 fL Normal 80.0-100.0 [facility] Comment on above: Performed By: #### Tasha [id number] ####[facility] [address] [place] [address] Huber Prado M.D. [id number] MEAN CORPUSCULAR HEMOGLOBIN CONC 32.7 g/dL Normal 31.0-37.0 [facility] Comment on above: Performed By: #### L [id number] ####[facility] [address] [place] [address] Huber Prado M.D. [id number] Monocytes (Bld) [#/Vol] 0.78 10*3/uL Normal 0.30-0.90 [facility] Comment on above: Performed By: #### Tasha [id number] ####[facility] [address] [place] [address] Huber Prado M.D. [id number] Monocytes/100 WBC (Bld) 9.3 % Normal [facility] Comment on above: Performed By: #### L [id number] ####[facility] [address] [place], [place] [address] Huber Prado M.D. [id number] NEUTROPHILS ABSOLUTE COUNT 4.58 K/mcL Normal 1.70-7.00 [facility] Comment on above: Performed By: #### L [id number] ####[facility] [address] [place] [address] Huber Prado M.D. [id number] Neutrophils/100 WBC (Bld) 54.7 % Normal [facility] Comment on above: Performed By: #### Tasha [id number] ####[facility] [address] [place] [address] Huber Prado M.D. [id number] Platelet mean volume (Bld) [Entitic vol] 11.4 fL Normal 9.4-12.4 [facility] Comment on above: Performed By: #### L [id number] ####[facility] [address] [place], [place] [address] Huber Prado M.D. [id number] Platelets (Bld) [#/Vol] 284 10*3/uL Normal 150-400 [facility] Comment on above: Performed By: #### L [id number] ####[facility] [address] [place] [address] Huber Prado M.D. [id number] RBC (Bld) [#/Vol] 2.79 10*6/uL Low 4.00-5.[address] [facility] Comment on above: Performed By: #### L [id number] ####[facility] [address] [place] [address] Huber Prado M.D. [id number] WBC (Bld) [#/Vol] 8.75 10*3/uL Normal 4.50-11.[address] [facility] Comment on above: Performed By: #### L [id number] ####[facility] [address] [place], [place] [address] Huber Prado M.D. [id number] COMPREHENSIVE METABOLIC PANE Nate 05-11-2024 Albumin [Mass/Vol] 3.7 g/dL Normal 3.2-5.2 [facility] Comment on above: Order Comment: [facility] Services has implemented the eGFR calculation approach that does not have a coefficient for race that conforms to the NKF-ASN Task Force Recommendations. Performed By: #### 4 6126 ####[facility] [address] [place] [address] 595[address] Huber Prado M.D. [id number] ALP [Catalytic activity/Vol] 153 U/L High 40-140 [facility] Comment on above: Order Comment: [facility] Services has implemented the eGFR calculation approach that does not have a coefficient for race that conforms to the NKF-ASN Task Force Recommendations. Performed By: #### 4 6126 ####[facility] [address] [place] [address] 68554 Huber Prado M.D. [id number] ALT [Catalytic activity/Vol] 25 U/L Normal 0-35 U/L [facility] Comment on above: Order Comment: [facility] Services has implemented the eGFR calculation approach that does not have a coefficient for race that conforms to the NKF-ASN Task Force Recommendations. Performed By: #### 4 6126 ####[facility] [address] [place] [address] 525[address] Huber Prado M.D. [id number] Anion gap [Moles/Vol] 17 mmol/L Normal 10-20 [facility] Comment on above: Order Comment: [facility] Services has implemented the eGFR calculation approach that does not have a coefficient for race that conforms to the NKF-ASN Task Force Recommendations. Performed By: #### 4 6126 ####[facility] [address] [place] [address] 36499 Huber Prado M.D. [id number] AST [Catalytic activity/Vol] 14 U/L Normal 0-35 U/L [facility] Comment on above: Order Comment: [facility] Services has implemented the eGFR calculation approach that does not have a coefficient for race that conforms to the NKF-ASN Task Force Recommendations. Performed By: #### 4 6126 ####[facility] [address] [place], [place] [address] Huber Prado M.D. [id number] BILIRUBIN TOTAL < Normal 0.0-1.3 [facility] Comment on above: Order Comment: [facility] Services has implemented the eGFR calculation approach that does not have a coefficient for race that conforms to the NKF-ASN Task Force Recommendations. Performed By: #### 4 6126 ####[facility] [address] [place], [place] [address] Huber Prado M.D. [id number] Calcium [Mass/Vol] 9.5 mg/dL Normal 8.4-10.2 [facility] Comment on above: Order Comment: [facility] has implemented the eGFR calculation approach that does not have a coefficient for race that conforms to the NKF-ASN Task Force Recommendations. Performed By: #### 4 6126 ####[facility] [address] [place] [address] 39[address] Huber Prado M.D. [id number] Chloride [Moles/Vol] 103 mmol/L Normal 98-108 [facility] Comment on above: Order Comment: [facility] Services has implemented the eGFR calculation approach that does not have a coefficient for race that conforms to the NKF-ASN Task Force Recommendations. Performed By: #### 4 6126 ####[facility] [address] [place] [address] 48[address] Huber Prado M.D. [id number] Creatinine [Mass/Vol] 1.04 mg/dL Normal 0.40-1.10 [facility] Comment on above: Order Comment: [facility] Services has implemented the eGFR calculation approach that does not have a coefficient for race that conforms to the NKF-ASN Task Force Recommendations. Performed By: #### 4 6126 ####[facility] [address] [place], [place] [address] Huber Prado M.D. [id number] EGFR 72 mL/min/1.73 m2 Normal >=60 [facility] Comment on above: Order Comment: [facility] Services has implemented the eGFR calculation approach that does not have a coefficient for race that conforms to the NKF-ASN Task Force Recommendations. Result Comment: Neema mated GFR was calculated using the 2020 CKD-EPI creatinine equation. Performed By: #### 4 6126 ####[facility] [address] [place] [address] 74073 Huber Prado M.D. [id number] Glucose [Mass/Vol] 109 mg/dL High 65-99 [facility] Comment on above: Order Comment: [facility] has implemented the eGFR calculation approach that does not have a coefficient for race that conforms to the NKF-ASN Task Force Recommendations. Performed By: #### 4 6126 ####[facility] [address] [place] [address] 87325 Huber Prado M.D. [id number] HCO3 (Bld) [Moles/Vol] 24 mmol/L Normal 21-32 [facility] Comment on above: Order Comment: [facility] Services has implemented the eGFR calculation approach that does not have a coefficient for race that conforms to the NKF-ASN Task Force Recommendations. Performed By: #### 4 6126 ####[facility] [address] [place] [address] 10147 Huber Prado M.D. [id number] Potassium [Moles/Vol] 4.0 mmol/L Normal 3.5-5.1 [facility] Comment on above: Order Comment: [facility] Services has implemented the eGFR calculation approach that does not have a coefficient for race that conforms to the NKF-ASN Task Force Recommendations. Performed By: #### 4 6126 ####[facility] [address] [place], [place] [address] Huber Prado M.D. [id number] Protein [Mass/Vol] 6.8 g/dL Normal 6.0-8.0 [facility] Comment on above: Order Comment: [facility] Services has implemented the eGFR calculation approach that does not have a coefficient for race that conforms to the NKF-ASN Task Force Recommendations. Performed By: #### 4 6126 ####[facility] [address] [place], [place] [address] Huber Prado M.D. [id number] Sodium [Moles/Vol] 140 mmol/L Normal 135-145 [facility] Comment on above: Order Comment: [facility] Services has implemented the eGFR calculation approach that does not have a coefficient for race that conforms to the NKF-ASN Task Force Recommendations. Performed By: #### 4 6126 ####[facility] [address] [place] [address] 32050 Huber Prado M.D. [id number] Urea nitrogen [Mass/Vol] 36 mg/dL High 8-25 [facility] Comment on above: Order Comment: [facility] Services has implemented the eGFR calculation approach that does not have a coefficient for race that conforms to the NKF-ASN Task Force Recommendations. Performed By: #### 4 6174 ####[facility] [address] [place], [place] [address] Huber Prado M.D. [id number] Urea nitrogen/Creatinine [Mass ratio] 34.6 mg/mg High 10.0-20.0 [facility] Comment on above: Order Comment: [facility] Services has implemented the eGFR calculation approach that does not have a coefficient for race that conforms to the NKF-ASN Task Force Recommendations. Performed By: #### 4 6126 ####[facility] [address] [place] [address] Huber Prado M.D. [id number] CONSULTon 05-11-2024 CONSULT Normal [facility] PHOSPHORUSon 05-11-2024 Phosphate [Mass/Vol] 4.0 mg/dL Normal 2.7-4.5 [facility] Comment on above: Performed By: #### 4 6299 ####[facility] [address] [place] [address] Huber Prado M.D. [id number] POC GLUCOSE - [facility] 024 Glucose [Mass/Vol] 132 mg/dL High [address] [place] [address] Comment on above: Performed By: #### 4 6932 ####[facility] [address] [place] [address] [id number] RMHPOC Glucose [Mass/Vol] 126 mg/dL High [address] [place] [address] Comment on above: Performed By: #### 4 6932 ####[facility] [address] [place] [address] [id number] RM[facility] Glucose [Mass/Vol] 114 mg/dL High [address] [place] [address] Comment on above: Performed By: #### 4 6902 ####[facility] [address] [place] [address] [id number] [facility] Glucose [Mass/Vol] 111 mg/dL High [address] [place] [address] Comment on above: Performed By: #### 4 6907 ####[facility] [address] [place] [address] [id number] [facility] Glucose [Mass/Vol] 137 mg/dL High [address] [place] [address] Comment on above: Performed By: #### 4 6960 ####[facility] [address] [place] [address] [id number] [facility] Glucose [Mass/Vol] 110 mg/dL High 65-99 [facility] Comment on above: Performed By: #### 4 6932 ####[facility] [address] [place] [address] [id number] [facility] POTASSIUM LEVELon 05-11-2024 Potassium [Moles/Vol] 4.3 mmol/L Normal 3.5-5.1 [facility] Comment on above: Performed By: #### 4 6351 ####[facility] [address] [place] [address] Huber Prado M.D. [id number] CBC WITH AUTO DIFFERENTIALon 05-10-2024 AUTO NRBC 0.0 % [facility] Comment on above: Performed By: #### Tasha [id number] ####[facility] [address] [place] [address] Huber Prado M.D. [id number] AUTO NRBC ABS COUNT 0.00 K/mcL Normal 0.00-0.[address] [facility] Comment on above: Performed By: #### L [id number] ####[facility] [address] [place] [address] Huber Prado M.D. [id number] BASOPHILS ABSOLUTE COUNT 0.13 K/mcL Normal 0.00-0.30 [facility] Comment on above: Performed By: #### L [id number] ####[facility] [address] [place] [address] Huber Prado M.D. [id number] Basophils/100 WBC (Bld) 1.2 % Normal [facility] Comment on above: Performed By: #### L [id number] ####[facility] [address] [place] [address] Huber Prado M.D. [id number] Eosinophils (Bld) [#/Vol] 0.35 10*3/uL Normal 0.00-0.50 [facility] Comment on above: Performed By: #### L [id number] ####[facility] [address] [place] [address] Huber Prado M.D. [id number] Eosinophils/100 WBC (Bld) 3.2 % Normal [facility] Comment on above: Performed By: #### Tasha [id number] ####[facility] [address] [place] [address] Huber Prado M.D. [id number] Erythrocyte distribution width (RBC) [Ratio] 14.5 % Normal 11.6-14.8 [facility] Comment on above: Performed By: #### L [id number] ####[facility] [address] [place] [address] Huber Prado M.D. [id number] Hematocrit (Bld) [Volume fraction] 25.2 % Low 36.0-46.0 [facility] Comment on above: Performed By: #### Tasha [id number] ####[facility] [address] [place] [address] Huber Prado M.D. [id number] Hemoglobin (Bld) [Mass/Vol] 8.4 g/dL Low 12.0-16.0 [facility] Comment on above: Performed By: #### L [id number] ####[facility] [address] [place] [address] Huber Prado M.D. [id number] IG ABSOLUTE 0.21 K/mcL Normal 0.00-0.30 [facility] Comment on above: Performed By: #### L [id number] ####[facility] [address] [place] [address] Huber Prado M.D. [id number] IG PERCENT 1.90 % Normal [facility] Comment on above: Result Comment: The IG parameter is the percentage of metamyelocytes, myelocytes and promyelocytes. An immature granulocyte count (IG) of 1% or more suggests the possibility of infection, an IG count of 3% is very likely related to an infection. Performed By: #### L [id number] ####[facility] [address] [place] [address] Huber Prado M.D. [id number] Lymphocytes (Bld) [#/Vol] 2.44 10*3/uL Normal 0.90-4.00 [facility] Comment on above: Performed By: #### L [id number] ####[facility] [address] [place] [address] Huber Prado M.D. [id number] Lymphocytes/100 WBC (Bld) 22.4 % Normal [facility] Comment on above: Performed By: #### L [id number] ####[facility] [address] [place] [address] Huber Prado M.D. [id number] MCH (RBC) [Entitic mass] 30.8 pg Normal 26.0-34.0 [facility] Comment on above: Performed By: #### L [id number] ####[facility] [address] [place] [address] Huber Prado M.D. [id number] MCV (RBC) [Entitic vol] 92.3 fL Normal 80.0-100.0 [facility] Comment on above: Performed By: #### L [id number] ####[facility] [address] [place] [address] Huber Prado M.D. [id number] MEAN CORPUSCULAR HEMOGLOBIN CONC 33.3 g/dL Normal 31.0-37.0 [facility] Comment on above: Performed By: #### L [id number] ####[facility] [address] [place] [address] Huber Prado M.D. [id number] Monocytes (Bld) [#/Vol] 0.80 10*3/uL Normal 0.30-0.90 [facility] Comment on above: Performed By: #### L [id number] ####[facility] [address] [place] [address] Huber Prado M.D. [id number] Monocytes/100 WBC (Bld) 7.3 % Normal [facility] Comment on above: Performed By: #### Tasha [id number] ####[facility] [address] [place] [address] Huber Prado M.D. [id number] NEUTROPHILS ABSOLUTE COUNT 6.98 K/mcL Normal 1.70-7.00 [facility] Comment on above: Performed By: #### Tasha [id number] ####[facility] [address] [place] [address] Huber Prado M.D. [id number] Neutrophils/100 WBC (Bld) 64.0 % Normal [facility] Comment on above: Performed By: #### Tasha [id number] ####[facility] [address] [place] [address] Huber Prado M.D. [id number] Platelet mean volume (Bld) [Entitic vol] 10.7 fL Normal 9.4-12.4 [facility] Comment on above: Performed By: #### L [id number] ####[facility] [address] [place] [address] Huber Prado M.D. [id number] Platelets (Bld) [#/Vol] 383 10*3/uL Normal 150-400 [facility] Comment on above: Performed By: #### L [id number] ####[facility] [address] [place] [address] Huber Prado M.D. [id number] RBC (Bld) [#/Vol] 2.73 10*6/uL Low 4.00-5.[address] [facility] Comment on above: Performed By: #### L [id number] ####[facility] [address] [place] [address] Huber Prado M.D. [id number] WBC (Bld) [#/Vol] 10.91 10*3/uL Normal 4.50-11.00 [facility] Comment on above: Performed By: #### L [id number] ####[facility] [address] [place] [address] Huber Prado M.D. [id number] COMPREHENSIVE METABOLIC PANE Nate 05-10-2024 Albumin [Mass/Vol] 3.7 g/dL Normal 3.2-5.2 [facility] Comment on above: Order Comment: [facility] has implemented the eGFR calculation approach that does not have a coefficient for race that conforms to the NKF-ASN Task Force Recommendations. Performed By: #### 4 6126 ####[facility] [address] [place] [address] Huber Prado M.D. [id number] ALP [Catalytic activity/Vol] 162 U/L High 40-140 [facility] Comment on above: Order Comment: [facility] has implemented the eGFR calculation approach that does not have a coefficient for race that conforms to the NKF-ASN Task Force Recommendations. Performed By: #### 4 6126 ####[facility] [address] [place] [address] Huber Prado M.D. [id number] ALT [Catalytic activity/Vol] 27 U/L Normal 0-35 U/L [facility] Comment on above: Order Comment: [facility] has implemented the eGFR calculation approach that does not have a coefficient for race that conforms to the NKF-ASN Task Force Recommendations. Performed By: #### 4 6126 ####[facility] [address] [place] [address] Huber Prado M.D. [id number] Anion gap [Moles/Vol] 20 mmol/L Normal 10-20 [facility] Comment on above: Order Comment: [facility] has implemented the eGFR calculation approach that does not have a coefficient for race that conforms to the NKF-ASN Task Force Recommendations. Performed By: #### 4 6126 ####[facility] [address] [place], [place] [address] Huber Prado M.D. [id number] AST [Catalytic activity/Vol] 16 U/L Normal 0-35 U/L [facility] Comment on above: Order Comment: [facility] has implemented the eGFR calculation approach that does not have a coefficient for race that conforms to the NKF-ASN Task Force Recommendations. Performed By: #### 4 6126 ####[facility] [address] [place], [place] [address] Huber Prado M.D. [id number] BILIRUBIN TOTAL < Normal 0.0-1.3 [facility] Comment on above: Order Comment: [facility] has implemented the eGFR calculation approach that does not have a coefficient for race that conforms to the NKF-ASN Task Force Recommendations. Performed By: #### 4 6126 ####[facility] [address] [place] [address] Huber Prado M.D. [id number] Calcium [Mass/Vol] 9.9 mg/dL Normal 8.4-10.2 [facility] Comment on above: Order Comment: [facility] has implemented the eGFR calculation approach that does not have a coefficient for race that conforms to the NKF-ASN Task Force Recommendations. Performed By: #### 4 6126 ####[facility] [address] [place] [address] Huber Prado M.D. [id number] Chloride [Moles/Vol] 101 mmol/L Normal 98-108 [facility] Comment on above: Order Comment: [facility] has implemented the eGFR calculation approach that does not have a coefficient for race that conforms to the NKF-ASN Task Force Recommendations. Performed By: #### 4 6126 ####[facility] [address] [place] [address] Huber Prado M.D. [id number] Creatinine [Mass/Vol] 0.94 mg/dL Normal 0.40-1.10 [facility] Comment on above: Order Comment: [facility] has implemented the eGFR calculation approach that does not have a coefficient for race that conforms to the NKF-ASN Task Force Recommendations. Performed By: #### 4 6126 ####[facility] [address] [place], [place] [address] Huber Prado M.D. [id number] EGFR 82 mL/min/1.73 m2 Normal >=60 [facility] Comment on above: Order Comment: [facility] has implemented the eGFR calculation approach that does not have a coefficient for race that conforms to the NKF-ASN Task Force Recommendations. Result Comment: Neema mated GFR was calculated using the 2020 CKD-EPI creatinine equation. Performed By: #### 4 6126 ####[facility] [address] [place] [address] Huber Prado M.D. [id number] Glucose [Mass/Vol] 96 mg/dL Normal 65-99 [facility] Comment on above: Order Comment: [facility] has implemented the eGFR calculation approach that does not have a coefficient for race that conforms to the NKF-ASN Task Force Recommendations. Performed By: #### 4 6126 ####[facility] [address] [place] [address] Huber Prado M.D. [id number] HCO3 (Bld) [Moles/Vol] 24 mmol/L Normal 21-32 [facility] Comment on above: Order Comment: [facility] has implemented the eGFR calculation approach that does not have a coefficient for race that conforms to the NKF-ASN Task Force Recommendations. Performed By: #### 4 6126 ####[facility] [address] [place], [place] [address] Huber Prado M.D. [id number] Potassium [Moles/Vol] 3.8 mmol/L Normal 3.5-5.1 [facility] Comment on above: Order Comment: [facility] has implemented the eGFR calculation approach that does not have a coefficient for race that conforms to the NKF-ASN Task Force Recommendations. Performed By: #### 4 6126 ####[facility] [address] [place], [place] [address] Huber Prado M.D. [id number] Protein [Mass/Vol] 7.3 g/dL Normal 6.0-8.0 [facility] Comment on above: Order Comment: [facility] has implemented the eGFR calculation approach that does not have a coefficient for race that conforms to the NKF-ASN Task Force Recommendations. Performed By: #### 4 6126 ####[facility] [address] [place], [place] [address] Huber Prado M.D. [id number] Sodium [Moles/Vol] 141 mmol/L Normal 135-145 [facility] Comment on above: Order Comment: [facility] has implemented the eGFR calculation approach that does not have a coefficient for race that conforms to the NKF-ASN Task Force Recommendations. Performed By: #### 4 6126 ####[facility] [address] [place] [address] Huber Prado M.D. [id number] Urea nitrogen [Mass/Vol] 37 mg/dL High 8-25 [facility] Comment on above: Order Comment: [facility] has implemented the eGFR calculation approach that does not have a coefficient for race that conforms to the NKF-ASN Task Force Recommendations. Performed By: #### 4 6126 ####[facility] [address] [place] [address] Huber Prado M.D. [id number] Urea nitrogen/Creatinine [Mass ratio] 39.4 mg/mg High 10.0-20.0 [facility] Comment on above: Order Comment: [facility] has implemented the eGFR calculation approach that does not have a coefficient for race that conforms to the NKF-ASN Task Force Recommendations. Performed By: #### 4 6126 ####[facility] [address] [place] [address] Huber Prado M.D. [id number] PHOSPHORUSon 05-10-2024 Phosphate [Mass/Vol] 4.5 mg/dL Normal 2.7-4.5 [facility] Comment on above: Performed By: #### 4 6299 ####[facility] [address] [place] [address] Huber Prado M.D. [id number] POC GLUCOSE - [facility] 024 Glucose [Mass/Vol] 110 mg/dL [address] Comment on above: Performed By: #### 4 6932 ####[facility] [address] [place] [address] [id number] [facility] Glucose [Mass/Vol] 136 mg/dL High [address] [place] [address] Comment on above: Performed By: #### 4 6946 ####[facility] [address] [place] [address] [id number] [facility] Glucose [Mass/Vol] 126 mg/dL High [address] [place] [address] Comment on above: Performed By: #### 4 6915 ####[facility] [address] [place] [address] [id number] [facility] Glucose [Mass/Vol] 124 mg/dL High [address] [place] [address] Comment on above: Performed By: #### 4 9032 ####[facility] [address] [place] [address] [id number] [facility] Glucose [Mass/Vol] 115 mg/dL [place] [address] [facility] Comment on above: Performed By: #### 4 6960 ####[facility] [address] [place] [address] [id number] [facility] Glucose [Mass/Vol] 100 mg/dL [place] [address] [facility] Comment on above: Performed By: #### 4 6932 ####[facility] [address] [place] [address] [id number] [facility] Glucose [Mass/Vol] 108 mg/dL [place] [address] [facility] Comment on above: Performed By: #### 4 6932 ####[facility] [address] [place] [address] [id number] [facility] POTASSIUM LEVELon 05-10-2024 Potassium [Moles/Vol] 4.9 mmol/L Normal 3.5-5.1 [facility] Comment on above: Result Comment: Slig htly Hemolyzed Performed By: #### 4 6351 ####[facility] [address] [place], [place] [address] Huber Prado M.D. [id number] BLOOD GAS, VENOUSon 05-09-20 24 BASE EXCESS, VENOUS 0.9 Normal -2.0-2.[address] [facility] Comment on above: Performed By: #### 4 8006 ####[facility] [address] [place], [place] [address] Huber Prado M.D. [id number] HCO3 (Bld) [Moles/Vol] 25.4 mmol/L Normal 24.0-28.0 [facility] Comment on above: Performed By: #### 4 6720 ####[facility] [address] [place], [place] [address] Huber Prado M.D. [id number] Hematocrit (Bld) [Volume fraction] 28.2 % Low 36.0-46.0 [facility] Comment on above: Performed By: #### 4 6707 ####[facility] [address] [place] [address] Huber Prado M.D. [id number] Hemoglobin (Bld) [Mass/Vol] 9.1 g/dL Low 12.0-16.0 [facility] Comment on above: Performed By: #### 4 6760 ####[facility] [address] [place] [address] Huber Prado M.D. [id number] Oxygen saturation in Blood 99.1 % High 40.0-70.0 [facility] Comment on above: Performed By: #### 4 6733 ####[facility] [address] [place] [address] Huber Prado M.D. [id number] PCO2 VENOUS 42.6 mm Hg Normal 41.0-51.0 [facility] Comment on above: Performed By: #### 4 6745 ####[facility] [address] [place] [address] Huber Prado M.D. [id number] PH VENOUS 7.39 Normal 7.32-7.42 [facility] Comment on above: Performed By: #### 4 6796 ####[facility] [address] [place] [address] Huber Prado M.D. [id number] PO2 VENOUS 122 mm Hg High 25-40 [facility] Comment on above: Performed By: #### 4 6723 ####[facility] [address] [place] [address] Huber Prado M.D. [id number] CBC WITH AUTO DIFFERENTIALon 05-09-2024 AUTO NRBC 0.0 % Normal [facility] Comment on above: Performed By: #### L [id number] ####[facility] [address] [place] [address] Huber Prado M.D. [id number] AUTO NRBC ABS COUNT 0.00 K/mcL Normal 0.00-0.[address] [facility] Comment on above: Performed By: #### L [id number] ####[facility] [address] [place] [address] Huber Prado M.D. [id number] BASOPHILS ABSOLUTE COUNT 0.12 K/mcL Normal 0.00-0.30 [facility] Comment on above: Performed By: #### Tasha [id number] ####[facility] [address] [place] [address] Huber Prado M.D. [id number] Basophils/100 WBC (Bld) 1.1 % Normal [facility] Comment on above: Performed By: #### Tasha [id number] ####[facility] [address] [place] [address] Huber Prado M.D. [id number] Eosinophils (Bld) [#/Vol] 0.36 10*3/uL Normal 0.00-0.50 [facility] Comment on above: Performed By: #### L [id number] ####[facility] [address] [place] [address] Huber Prado M.D. [id number] Eosinophils/100 WBC (Bld) 3.3 % Normal [facility] Comment on above: Performed By: #### L [id number] ####[facility] [address] [place] [address] Huber Prado M.D. [id number] Erythrocyte distribution width (RBC) [Ratio] 14.6 % Normal 11.6-14.8 [facility] Comment on above: Performed By: #### L [id number] ####[facility] [address] [place], [place] [address] Huber Prado M.D. [id number] Hematocrit (Bld) [Volume fraction] 25.0 % Low 36.0-46.0 [facility] Comment on above: Performed By: #### L [id number] ####[facility] [address] [place] [address] Huber Prado M.D. [id number] Hemoglobin (Bld) [Mass/Vol] 8.2 g/dL Low 12.0-16.0 [facility] Comment on above: Performed By: #### L [id number] ####[facility] [address] [place] [address] Huber Prado M.D. [id number] IG ABSOLUTE 0.16 K/mcL Normal 0.00-0.30 [facility] Comment on above: Performed By: #### L [id number] ####[facility] [address] [place] [address] Huber Prado M.D. [id number] IG PERCENT 1.50 % Normal [facility] Comment on above: Result Comment: The IG parameter is the percentage of metamyelocytes, myelocytes and promyelocytes. An immature granulocyte count (IG) of 1% or more suggests the possibility of infection, an IG count of 3% is very likely related to an infection. Performed By: #### L [id number] ####[facility] [address] [place] [address] Huber Prado M.D. [id number] Lymphocytes (Bld) [#/Vol] 2.26 10*3/uL Normal 0.90-4.00 [facility] Comment on above: Performed By: #### L [id number] ####[facility] [address] [place] [address] Huber Prado M.D. [id number] Lymphocytes/100 WBC (Bld) 20.8 % Normal [facility] Comment on above: Performed By: #### L [id number] ####[facility] [address] [place] [address] Huber Prado M.D. [id number] MCH (RBC) [Entitic mass] 30.9 pg Normal 26.0-34.0 [facility] Comment on above: Performed By: #### Tasha [id number] ####[facility] [address] [place] [address] Huber Prado M.D. [id number] MCV (RBC) [Entitic vol] 94.3 fL Normal 80.0-100.0 [facility] Comment on above: Performed By: #### Tasha [id number] ####[facility] [address] [place] [address] Huber Prado M.D. [id number] MEAN CORPUSCULAR HEMOGLOBIN CONC 32.8 g/dL Normal 31.0-37.0 [facility] Comment on above: Performed By: #### Tasha [id number] ####[facility] [address] [place] [address] Huber Prado M.D. [id number] Monocytes (Bld) [#/Vol] 0.66 10*3/uL Normal 0.30-0.90 [facility] Comment on above: Performed By: #### Tasha [id number] ####[facility] [address] [place] [address] Huber Prado M.D. [id number] Monocytes/100 WBC (Bld) 6.1 % Normal [facility] Comment on above: Performed By: #### Tasha [id number] ####[facility] [address] [place] [address] Huber Prado M.D. [id number] NEUTROPHILS ABSOLUTE COUNT 7.30 K/mcL High 1.70-7.00 [facility] Comment on above: Performed By: #### L [id number] ####[facility] [address] [place] [address] Huber Prado M.D. [id number] Neutrophils/100 WBC (Bld) 67.2 % Normal [facility] Comment on above: Performed By: #### Tasha [id number] ####[facility] [address] [place] [address] Huber Prado M.D. [id number] Platelet mean volume (Bld) [Entitic vol] 11.2 fL Normal 9.4-12.4 [facility] [facility] Comment on above: Performed By: #### Tasha [id number] ####[facility] [address] [place] [address] Huber Prado M.D. [id number] Platelets (Bld) [#/Vol] 374 10*3/uL Normal 150-400 [facility] Comment on above: Performed By: #### L [id number] ####[facility] [address] [place], [place] [address] Huber Prado M.D. [id number] RBC (Bld) [#/Vol] 2.65 10*6/uL Low 4.00-5.[address] [facility] Comment on above: Performed By: #### Tasha [id number] ####[facility] [address] [place], [place] [address] Huber Prado M.D. [id number] WBC (Bld) [#/Vol] 10.86 10*3/uL Normal 4.50-11.00 [facility] Comment on above: Performed By: #### L [id number] ####[facility] [address] [place], [place] [address] Huber Prado M.D. [id number] COMPREHENSIVE METABOLIC PANE [facility] 05-09-2024 Albumin [Mass/Vol] 3.5 g/dL Normal 3.2-5.2 [facility] Comment on above: Order Comment: [facility] has implemented the eGFR calculation approach that does not have a coefficient for race that conforms to the NKF-ASN Task Force Recommendations. Performed By: #### 4 [id number] ####[facility] [address] [place], [place] [address] Huber Prado M.D. [id number] ALP [Catalytic activity/Vol] 153 U/L High 40-140 [facility] Comment on above: Order Comment: [facility] has implemented the eGFR calculation approach that does not have a coefficient for race that conforms to the NKF-ASN Task Force Recommendations. Performed By: #### 4 [id number] ####[facility] [address] [place], [place] [address] Huber Prado M.D. [id number] ALT [Catalytic activity/Vol] 23 U/L Normal 0-35 U/L [facility] Comment on above: Order Comment: [facility] has implemented the eGFR calculation approach that does not have a coefficient for race that conforms to the NKF-ASN Task Force Recommendations. Performed By: #### 4 [id number] ####[facility] [address] [place] [address] Huber Prado M.D. [id number] Anion gap [Moles/Vol] 18 mmol/L Normal 10-20 [facility] Comment on above: Order Comment: [facility] has implemented the eGFR calculation approach that does not have a coefficient for race that conforms to the NKF-ASN Task Force Recommendations. Performed By: #### 4 6126 ####[facility] [address] [place] [address] Huber Prado M.D. [id number] AST [Catalytic activity/Vol] 15 U/L Normal 0-35 U/L [facility] Comment on above: Order Comment: [facility] has implemented the eGFR calculation approach that does not have a coefficient for race that conforms to the NKF-ASN Task Force Recommendations. Performed By: #### 4 6126 ####[facility] [address] [place] [address] Huber Prado M.D. [id number] BILIRUBIN TOTAL < Normal 0.0-1.3 [facility] Comment on above: Order Comment: [facility] has implemented the eGFR calculation approach that does not have a coefficient for race that conforms to the NKF-ASN Task Force Recommendations. Performed By: #### 4 6126 ####[facility] [address] [place] [address] Huber Prado M.D. [id number] Calcium [Mass/Vol] 9.5 mg/dL Normal 8.4-10.2 [facility] Comment on above: Order Comment: [facility] has implemented the eGFR calculation approach that does not have a coefficient for race that conforms to the NKF-ASN Task Force Recommendations. Performed By: #### 4 6126 ####[facility] [address] [place] [address] Huber Prado M.D. [id number] Chloride [Moles/Vol] 104 mmol/L Normal 98-108 [facility] Comment on above: Order Comment: [facility] has implemented the eGFR calculation approach that does not have a coefficient for race that conforms to the NKF-ASN Task Force Recommendations. Performed By: #### 4 6126 ####[facility] [address] [place] [address] Huber Prado M.D. [id number] Creatinine [Mass/Vol] 1.06 mg/dL Normal 0.40-1.10 [facility] Comment on above: Order Comment: [facility] has implemented the eGFR calculation approach that does not have a coefficient for race that conforms to the NKF-ASN Task Force Recommendations. Performed By: #### 4 6126 ####[facility] [address] [place] [address] Huber Prado M.D. [id number] EGFR 71 mL/min/1.73 m2 Normal >=60 [facility] Comment on above: Order Comment: [facility] has implemented the eGFR calculation approach that does not have a coefficient for race that conforms to the NKF-ASN Task Force Recommendations. Result Comment: Neema mated GFR was calculated using the 2020 CKD-EPI creatinine equation. Performed By: #### 4 6126 ####[facility] [address] [place], [place] [address] Huber Prado M.D. [id number] Glucose [Mass/Vol] 124 mg/dL High 65-99 [facility] Comment on above: Order Comment: [facility] has implemented the eGFR calculation approach that does not have a coefficient for race that conforms to the NKF-ASN Task Force Recommendations. Performed By: #### 4 6126 ####[facility] [address] [place], [place] [address] Huber Prado M.D. [id number] HCO3 (Bld) [Moles/Vol] 22 mmol/L Normal 21-32 [facility] Comment on above: Order Comment: [facility] has implemented the eGFR calculation approach that does not have a coefficient for race that conforms to the NKF-ASN Task Force Recommendations. Performed By: #### 4 6126 ####[facility] [address] [place], [place] [address] Huber Prado M.D. [id number] Potassium [Moles/Vol] 3.7 mmol/L Normal 3.5-5.1 [facility] Comment on above: Order Comment: [facility] has implemented the eGFR calculation approach that does not have a coefficient for race that conforms to the NKF-ASN Task Force Recommendations. Performed By: #### 4 6126 ####[facility] [address] [place], [place] [address] Huber Prado M.D. [id number] Protein [Mass/Vol] 6.8 g/dL Normal 6.0-8.0 [facility] Comment on above: Order Comment: [facility] has implemented the eGFR calculation approach that does not have a coefficient for race that conforms to the NKF-ASN Task Force Recommendations. Performed By: #### 4 6126 ####[facility] [address] [place], [place] [address] Huber Prado M.D. [id number] Sodium [Moles/Vol] 140 mmol/L Normal 135-145 [facility] Comment on above: Order Comment: [facility] has implemented the eGFR calculation approach that does not have a coefficient for race that conforms to the NKF-ASN Task Force Recommendations. Performed By: #### 4 6126 ####[facility] [address] [place], [place] [address] Huber Prado M.D. [id number] Urea nitrogen [Mass/Vol] 35 mg/dL High 8-25 [facility] Comment on above: Order Comment: [facility] has implemented the eGFR calculation approach that does not have a coefficient for race that conforms to the NKF-ASN Task Force Recommendations. Performed By: #### 4 6126 ####[facility] [address] [place] [address] Huber Prado M.D. [id number] Urea nitrogen/Creatinine [Mass ratio] 33.0 mg/mg High 10.0-20.0 [facility] Comment on above: Order Comment: [facility] has implemented the eGFR calculation approach that does not have a coefficient for race that conforms to the NKF-ASN Task Force Recommendations. Performed By: #### 4 6126 ####[facility] [address] [place], [place] [address] Huber Prado M.D. [id number] PHOSPHORUSon 05-09-2024 Phosphate [Mass/Vol] 4.1 mg/dL Normal 2.7-4.5 [facility] Comment on above: Performed By: #### 4 6299 ####[facility] [address] [place] [address] Huber Prado M.D. [id number] [facility] Glucose [Mass/Vol] 110 mg/dL [address] Comment on above: Performed By: #### 4 6932 ####[facility] [address] [place] [address] [id number] [facility] Glucose [Mass/Vol] 116 mg/dL [address] Comment on above: Performed By: #### 4 6932 ####[facility] [address] [place] [address] [id number] [facility] Glucose [Mass/Vol] 113 mg/dL [address] Comment on above: Performed By: #### 4 6932 ####[facility] [address] [place] [address] [id number] [facility] Glucose [Mass/Vol] 123 mg/dL [address] Comment on above: Performed By: #### 4 6932 ####[facility] [address] [place] [address] [id number] [facility] POTASSIUM LEVELon 05-09-2024 Potassium [Moles/Vol] 4.3 mmol/L Normal 3.5-5.1 [facility] Comment on above: Performed By: #### 4 6351 ####[facility] [address] [place] [address] Huber Prado M.D. [id number] CBC WITH AUTO DIFFERENTIALon 05-08-2024 AUTO NRBC 0.0 % Normal [facility] Comment on above: Performed By: #### L [id number] ####[facility] [address] [place] [address] Huber Prado M.D. [id number] AUTO NRBC ABS COUNT 0.00 K/mcL Normal 0.00-0.[address] [facility] Comment on above: Performed By: #### L [id number] ####[facility] [address] [place] [address] Huber Prado M.D. [id number] BASOPHILS ABSOLUTE COUNT 0.12 K/mcL Normal 0.00-0.30 [facility] Comment on above: Performed By: #### L [id number] ####[facility] [address] [place] [address] Huber Prado M.D. [id number] Basophils/100 WBC (Bld) 1.1 % Normal [facility] Comment on above: Performed By: #### L [id number] ####[facility] [address] [place] [address] Huber Prado M.D. [id number] Eosinophils (Bld) [#/Vol] 0.35 10*3/uL Normal 0.00-0.50 [facility] Comment on above: Performed By: #### L [id number] ####[facility] [address] [place] [address] Huber Prado M.D. [id number] Eosinophils/100 WBC (Bld) 3.2 % Normal [facility] Comment on above: Performed By: #### L [id number] ####[facility] [address] [place] [address] Huber Prado M.D. [id number] Erythrocyte distribution width (RBC) [Ratio] 14.7 % Normal 11.6-14.8 [facility] Comment on above: Performed By: #### L [id number] ####[facility] [address] [place], [place] [address] Huber Prado M.D. [id number] Hematocrit (Bld) [Volume fraction] 27.1 % Low 36.0-46.0 [facility] Comment on above: Performed By: #### L [id number] ####[facility] [address] [place] [address] Huber Prado M.D. [id number] Hemoglobin (Bld) [Mass/Vol] 8.6 g/dL Low 12.0-16.0 [facility] Comment on above: Performed By: #### L [id number] ####[facility] [address] [place], [place] [address] Huber Prado M.D. [id number] IG ABSOLUTE 0.17 K/mcL Normal 0.00-0.30 [facility] Comment on above: Performed By: #### L [id number] ####[facility] [address] [place], [place] [address] Huber Prado M.D. [id number] IG PERCENT 1.60 % Normal [facility] Comment on above: Result Comment: The IG parameter is the percentage of metamyelocytes, myelocytes and promyelocytes. An immature granulocyte count (IG) of 1% or more suggests the possibility of infection, an IG count of 3% is very likely related to an infection. Performed By: #### L [id number] ####[facility] [address] [place], [place] [address] Huber Prado M.D. [id number] Lymphocytes (Bld) [#/Vol] 2.08 10*3/uL Normal 0.90-4.00 [facility] Comment on above: Performed By: #### L [id number] ####[facility] [address] [place], [place] [address] Huber Prado M.D. [id number] Lymphocytes/100 WBC (Bld) 19.3 % Normal [facility] Comment on above: Performed By: #### L [id number] ####[facility] [address] [place] [address] Huber Prado M.D. [id number] MCH (RBC) [Entitic mass] 30.9 pg Normal 26.0-34.0 [facility] Comment on above: Performed By: #### Tasha [id number] ####[facility] [address] [place] [address] Huber Prado M.D. [id number] MCV (RBC) [Entitic vol] 97.5 fL Normal 80.0-100.0 [facility] Comment on above: Performed By: #### Tasha [id number] ####[facility] [address] [place] [address] Huber Prado M.D. [id number] MEAN CORPUSCULAR HEMOGLOBIN CONC 31.7 g/dL Normal 31.0-37.0 [facility] Comment on above: Performed By: #### Tasha [id number] ####[facility] [address] [place] [address] Huber Prado M.D. [id number] Monocytes (Bld) [#/Vol] 0.65 10*3/uL Normal 0.30-0.90 [facility] Comment on above: Performed By: #### Tasha [id number] ####[facility] [address] [place] [address] Huber Prado M.D. [id number] Monocytes/100 WBC (Bld) 6.0 % Normal [facility] Comment on above: Performed By: #### Tasha [id number] ####[facility] [address] [place] [address] Huber Prado M.D. [id number] NEUTROPHILS ABSOLUTE COUNT 7.43 K/mcL High 1.70-7.00 [facility] Comment on above: Performed By: #### L [id number] ####[facility] [address] [place] [address] Huber Prado M.D. [id number] Neutrophils/100 WBC (Bld) 68.8 % Normal [facility] Comment on above: Performed By: #### L [id number] ####[facility] [address] [place] [address] Huber Prado M.D. [id number] Platelet mean volume (Bld) [Entitic vol] 10.8 fL Normal 9.4-12.4 [facility] Comment on above: Performed By: #### L [id number] ####[facility] [address] [place], [place] [address] Huber Prado M.D. [id number] Platelets (Bld) [#/Vol] 424 10*3/uL High 150-400 [facility] Comment on above: Performed By: #### L [id number] ####[facility] [address] [place], [place] [address] Huber Prado M.D. [id number] RBC (Bld) [#/Vol] 2.78 10*6/uL Low 4.00-5.[address] [facility] Comment on above: Performed By: #### L [id number] ####[facility] [address] [place], [place] [address] Huber Prado M.D. [id number] WBC (Bld) [#/Vol] 10.80 10*3/uL Normal 4.50-11.00 [facility] Comment on above: Performed By: #### L [id number] ####[facility] [address] [place] [address] Huber Prado M.D. [id number] COMPREHENSIVE METABOLIC PANE [facility] 05-08-2024 Albumin [Mass/Vol] 3.6 g/dL Normal 3.2-5.2 [facility] Comment on above: Order Comment: [facility] has implemented the eGFR calculation approach that does not have a coefficient for race that conforms to the NKF-ASN Task Force Recommendations. Performed By: #### 4 6126 ####[facility] [address] [place] [address] Huber Prado M.D. [id number] ALP [Catalytic activity/Vol] 170 U/L High 40-140 [facility] Comment on above: Order Comment: [facility] has implemented the eGFR calculation approach that does not have a coefficient for race that conforms to the NKF-ASN Task Force Recommendations. Performed By: #### 4 6126 ####[facility] [address] [place], [place] [address] Huber Prado M.D. [id number] ALT [Catalytic activity/Vol] 27 U/L Normal 0-35 U/L [facility] Comment on above: Order Comment: [facility] has implemented the eGFR calculation approach that does not have a coefficient for race that conforms to the NKF-ASN Task Force Recommendations. Performed By: #### 4 6126 ####[facility] [address] [place], [place] [address] Huber Prado M.D. [id number] Anion gap [Moles/Vol] 15 mmol/L Normal 10-20 [facility] Comment on above: Order Comment: [facility] has implemented the eGFR calculation approach that does not have a coefficient for race that conforms to the NKF-ASN Task Force Recommendations. Performed By: #### 4 6126 ####[facility] [address] [place], [place] [address] Huber Prado M.D. [id number] AST [Catalytic activity/Vol] 14 U/L Normal 0-35 U/L [facility] Comment on above: Order Comment: [facility] has implemented the eGFR calculation approach that does not have a coefficient for race that conforms to the NKF-ASN Task Force Recommendations. Performed By: #### 4 6126 ####[facility] [address] [place], [place] [address] Huber Prado M.D. [id number] Bilirubin [Mass/Vol] 0.2 mg/dL Normal 0.0-1.3 [facility] Comment on above: Order Comment: [facility] has implemented the eGFR calculation approach that does not have a coefficient for race that conforms to the NKF-ASN Task Force Recommendations. Performed By: #### 4 6126 ####[facility] [address] [place], [place] [address] Huber Prado M.D. [id number] Calcium [Mass/Vol] 9.2 mg/dL Normal 8.4-10.2 [facility] Comment on above: Order Comment: [facility] has implemented the eGFR calculation approach that does not have a coefficient for race that conforms to the NKF-ASN Task Force Recommendations. Performed By: #### 4 6126 ####[facility] [address] [place], [place] [address] Huber Prado M.D. [id number] Chloride [Moles/Vol] 106 mmol/L Normal 98-108 [facility] Comment on above: Order Comment: [facility] has implemented the eGFR calculation approach that does not have a coefficient for race that conforms to the NKF-ASN Task Force Recommendations. Performed By: #### 4 6126 ####[facility] [address] [place], [place] [address] Huber Prado M.D. [id number] Creatinine [Mass/Vol] 1.26 mg/dL High 0.40-1.10 [facility] Comment on above: Order Comment: [facility] has implemented the eGFR calculation approach that does not have a coefficient for race that conforms to the NKF-ASN Task Force Recommendations. Performed By: #### 4 6126 ####[facility] [address] [place], [place] [address] Huber Prado M.D. [id number] EGFR 58 mL/min/1.73 m2 Low >=60 [facility] Comment on above: Order Comment: [facility] has implemented the eGFR calculation approach that does not have a coefficient for race that conforms to the NKF-ASN Task Force Recommendations. Result Comment: Neema mated GFR was calculated using the 2020 CKD-EPI creatinine equation. Performed By: #### 4 6126 ####[facility] [address] [place] [address] Huber Prado M.D. [id number] Glucose [Mass/Vol] 114 mg/dL High 65-99 [facility] Comment on above: Order Comment: [facility] has implemented the eGFR calculation approach that does not have a coefficient for race that conforms to the NKF-ASN Task Force Recommendations. Performed By: #### 4 6126 ####[facility] [address] [place] [address] Huber Prado M.D. [id number] HCO3 (Bld) [Moles/Vol] 25 mmol/L Normal 21-32 [facility] Comment on above: Order Comment: [facility] has implemented the eGFR calculation approach that does not have a coefficient for race that conforms to the NKF-ASN Task Force Recommendations. Performed By: #### 4 6126 ####[facility] [address] [place] [address] Huber Prado M.D. [id number] Potassium [Moles/Vol] 3.8 mmol/L Normal 3.5-5.1 [facility] Comment on above: Order Comment: [facility] has implemented the eGFR calculation approach that does not have a coefficient for race that conforms to the NKF-ASN Task Force Recommendations. Performed By: #### 4 6126 ####[facility] [address] [place] [address] Huber Prado M.D. [id number] Protein [Mass/Vol] 7.0 g/dL Normal 6.0-8.0 [facility] Comment on above: Order Comment: [facility] has implemented the eGFR calculation approach that does not have a coefficient for race that conforms to the NKF-ASN Task Force Recommendations. Performed By: #### 4 6126 ####[facility] [address] [place] [address] Huber Prado M.D. [id number] Sodium [Moles/Vol] 142 mmol/L Normal 135-145 [facility] Comment on above: Order Comment: [facility] has implemented the eGFR calculation approach that does not have a coefficient for race that conforms to the NKF-ASN Task Force Recommendations. Performed By: #### 4 6126 ####[facility] [address] [place] [address] Huber Prado M.D. [id number] Urea nitrogen [Mass/Vol] 38 mg/dL High 8-25 [facility] Comment on above: Order Comment: [facility] has implemented the eGFR calculation approach that does not have a coefficient for race that conforms to the NKF-ASN Task Force Recommendations. Performed By: #### 4 6126 ####[facility] [address] [place] [address] Huber Prado M.D. [id number] Urea nitrogen/Creatinine [Mass ratio] 30.2 mg/mg High 10.0-20.0 [facility] Comment on above: Order Comment: [facility] [facility] has implemented the eGFR calculation approach that does not have a coefficient for race that conforms to the NKF-ASN Task Force Recommendations. Performed By: #### 4 [id number] ####[facility] [address] [place] [address] 66093 Huber Prado M.D. [id number] PHOSPHORUSon 05-08-2024 Phosphate [Mass/Vol] 4.2 mg/dL Normal 2.7-4.5 [facility] Comment on above: Performed By: #### 4 [id number] ####[facility] [address] [place] [address] 23599 Huber Prado M.D. [id number] POC GLUCOSE - [facility] 024 Glucose [Mass/Vol] 113 mg/dL High [address] [place] [address] Comment on above: Performed By: #### 4 [id number] ####[facility] [address] [place] [address] [id number] RMHPOC Glucose [Mass/Vol] 113 mg/dL High [address] [place] [address] Comment on above: Performed By: #### 4 6932 ####[facility] [address] [place] [address] [id number] [facility] Glucose [Mass/Vol] 116 mg/dL High [address] [place] [address] Comment on above: Performed By: #### 4 [id number] ####[facility] [address] [place] [address] [id number] RM[facility] Glucose [Mass/Vol] 128 mg/dL [address] Comment on above: Performed By: #### 4 6932 ####[facility] [address] [place] [address] [id number] [facility] Glucose [Mass/Vol] 128 mg/dL [address] Comment on above: Performed By: #### 4 [id number] ####[facility] [address] [place] [address] [id number] [facility] Glucose [Mass/Vol] 119 mg/dL [address] Comment on above: Performed By: #### 4 [id number] ####[facility] [address] [place] [address] [id number] [facility] STOOL/GI PCR PANELon 024 STOOL/GI PCR PANEL Normal Not Detected [facility] Comment on above: Order Comment: Resul ts of PCR testing for stool pathogens must be taken into clinical context when making treatment decisions. Most gastrointestinal infections due to common bacterial and viral causes are self-limited in nature and do not require antimicrobial therapy. The use of antimicrobial therapy must be carefully weighed against unintended and potentially harmful consequences. The role of antimicrobial therapy depends on the implicated pathogen. In general, antimicrobial agents are only used to treat parasitic infections as well as select bacterial infections. Performed By: #### L [id number] ####[facility] [address] [place], [place] [address] Huber Prado M.D. [id number] VANCOMYCIN LEVEL, RANDOMon 0 05-08-2024 VANCOMYCIN RANDOM 7.3 mcg/mL Normal [facility] Comment on above: Order Comment: As of 05/2022 vancomycin dosing for [facility] inpatients will be done by Bayesian dosing software rather than off traditional trough values. Please contact the site specific inpatient pharmacy before making dose changes off of trough values alone for admitted patients.No established reference range. Performed By: #### 4 [id number] ####[facility] [address] [place] [address] Huber Prado M.D. [id number] CBC WITH AUTO DIFFERENTIALon 05-07-2024 AUTO NRBC 0.0 % [facility] Comment on above: Performed By: #### L [id number] ####[facility] [address] [place], [place] [address] Huber Prado M.D. [id number] AUTO NRBC ABS COUNT 0.00 K/mcL Normal 0.00-0.[address] [facility] Comment on above: Performed By: #### L [id number] ####[facility] [address] [place], [place] [address] Huber Prado M.D. [id number] BASOPHILS ABSOLUTE COUNT 0.14 K/mcL Normal 0.00-0.30 [facility] Comment on above: Performed By: #### L [id number] ####[facility] [address] [place], [place] [address] Huber Prado M.D. [id number] Basophils/100 WBC (Bld) 1.0 % Normal [facility] Comment on above: Performed By: #### L [id number] ####[facility] [address] [place] [address] Huber Prado M.D. [id number] Eosinophils (Bld) [#/Vol] 0.46 10*3/uL Normal 0.00-0.50 [facility] Comment on above: Performed By: #### L [id number] ####[facility] [address] [place] [address] Huber Prado M.D. [id number] Eosinophils/100 WBC (Bld) 3.4 % Normal [facility] Comment on above: Performed By: #### Tasha [id number] ####[facility] [address] [place] [address] Huber Prado M.D. [id number] Erythrocyte distribution width (RBC) [Ratio] 15.5 % High 11.6-14.8 [facility] Comment on above: Performed By: #### Tasha [id number] ####[facility] [address] [place] [address] Huber Prado M.D. [id number] Hematocrit (Bld) [Volume fraction] 25.7 % Low 36.0-46.0 [facility] Comment on above: Performed By: #### Tasha [id number] ####[facility] [address] [place] [address] Huber Prado M.D. [id number] Hemoglobin (Bld) [Mass/Vol] 8.3 g/dL Low 12.0-16.0 [facility] Comment on above: Performed By: #### Tasha [id number] ####[facility] [address] [place], [place] [address] Huber Prado M.D. [id number] IG ABSOLUTE 0.21 K/mcL Normal 0.00-0.30 [facility] Comment on above: Performed By: #### Tasha [id number] ####[facility] [address] [place], [place] [address] Huber Prado M.D. [id number] IG PERCENT 1.60 % Normal [facility] Comment on above: Result Comment: The IG parameter is the percentage of metamyelocytes, myelocytes and promyelocytes. An immature granulocyte count (IG) of 1% or more suggests the possibility of infection, an IG count of 3% is very likely related to an infection. Performed By: #### Tasha [id number] ####[facility] [address] [place] [address] Huber Prado M.D. [id number] Lymphocytes (Bld) [#/Vol] 1.72 10*3/uL Normal 0.90-4.00 [facility] Comment on above: Performed By: #### Tasha [id number] ####[facility] [address] [place] [address] Huber Prado M.D. [id number] Lymphocytes/100 WBC (Bld) 12.7 % Normal [facility] Comment on above: Performed By: #### Tasha [id number] ####[facility] [address] [place], [place] [address] Huber Prado M.D. [id number] MCH (RBC) [Entitic mass] 31.6 pg Normal 26.0-34.0 [facility] Comment on above: Performed By: #### Tasha [id number] ####[facility] [address] [place] [address] Huber Prado M.D. [id number] MCV (RBC) [Entitic vol] 97.7 fL Normal 80.0-100.0 [facility] Comment on above: Performed By: #### L [id number] ####[facility] [address] [place], [place] [address] Huber Prado M.D. [id number] MEAN CORPUSCULAR HEMOGLOBIN CONC 32.3 g/dL Normal 31.0-37.0 [facility] Comment on above: Performed By: #### L [id number] ####[facility] [address] [place] [address] Huber Prado M.D. [id number] Monocytes (Bld) [#/Vol] 0.67 10*3/uL Normal 0.30-0.90 [facility] Comment on above: Performed By: #### L [id number] ####[facility] [address] [place] [address] Huber Prado M.D. [id number] Monocytes/100 WBC (Bld) 5.0 % Normal [facility] Comment on above: Performed By: #### L [id number] ####[facility] [address] [place] [address] Huber Prado M.D. [id number] NEUTROPHILS ABSOLUTE COUNT 10.31 K/mcL High 1.70-7.00 [facility] Comment on above: Performed By: #### L [id number] ####[facility] [address] [place], [place] [address] Huber Prado M.D. [id number] Neutrophils/100 WBC (Bld) 76.3 % Normal [facility] Comment on above: Performed By: #### L [id number] ####[facility] [address] [place], [place] [address]Nora Prado M.D. [id number] Platelet mean volume (Bld) [Entitic vol] 11.0 fL Normal 9.4-12.4 [facility] Comment on above: Performed By: #### L [id number] ####[facility] [address] [place], [place] [address] Huber Prado M.D. [id number] Platelets (Bld) [#/Vol] 441 10*3/uL High 150-400 [facility] Comment on above: Performed By: #### L [id number] ####[facility] [address] [place] [address] 367[address] Huber Prado M.D. [id number] RBC (Bld) [#/Vol] 2.63 10*6/uL Low 4.00-5.[address] [facility] Comment on above: Performed By: #### L [id number] ####[facility] [address] [place] [address] 18[address] Huber Prado M.D. [id number] WBC (Bld) [#/Vol] 13.51 10*3/uL High 4.50-11.00 [facility] Comment on above: Performed By: #### L [id number] ####[facility] [address] [place] [address] 33388 Huber Prado M.D. [id number] COMPREHENSIVE METABOLIC PANE [facility] 05-07-2024 Albumin [Mass/Vol] 3.6 g/dL Normal 3.2-5.2 [facility] Comment on above: Order Comment: [facility] has implemented the eGFR calculation approach that does not have a coefficient for race that conforms to the NKF-ASN Task Force Recommendations. Performed By: #### 4 6126 ####[facility] [address] [place] [address] 42282 Huber Prado M.D. [id number] ALP [Catalytic activity/Vol] 170 U/L High 40-140 [facility] Comment on above: Order Comment: [facility] has implemented the eGFR calculation approach that does not have a coefficient for race that conforms to the NKF-ASN Task Force Recommendations. Performed By: #### 4 6126 ####[facility] [address] [place] [address] 40234 Huber Prado M.D. [id number] ALT [Catalytic activity/Vol] 27 U/L Normal 0-35 U/L [facility] Comment on above: Order Comment: [facility] has implemented the eGFR calculation approach that does not have a coefficient for race that conforms to the NKF-ASN Task Force Recommendations. Performed By: #### 4 6126 ####[facility] [address] [place] [address] 97191 Huber Prado M.D. [id number] Anion gap [Moles/Vol] 19 mmol/L Normal 10-20 [facility] Comment on above: Order Comment: [facility] has implemented the eGFR calculation approach that does not have a coefficient for race that conforms to the NKF-ASN Task Force Recommendations. Performed By: #### 4 6126 ####[facility] [address] [place] [address] 608[address] Huber Prado M.D. [id number] AST [Catalytic activity/Vol] 16 U/L Normal 0-35 U/L [facility] Comment on above: Order Comment: [facility] has implemented the eGFR calculation approach that does not have a coefficient for race that conforms to the NKF-ASN Task Force Recommendations. Performed By: #### 4 6126 ####[facility] [address] [place] [address] 68798 Huber Prado M.D. [id number] Bilirubin [Mass/Vol] 0.2 mg/dL Normal 0.0-1.3 [facility] Comment on above: Order Comment: [facility] has implemented the eGFR calculation approach that does not have a coefficient for race that conforms to the NKF-ASN Task Force Recommendations. Performed By: #### 4 6126 ####[facility] [address] [place] [address] 52792 Huber Prado M.D. [id number] Calcium [Mass/Vol] 9.1 mg/dL Normal 8.4-10.2 [facility] Comment on above: Order Comment: [facility] has implemented the eGFR calculation approach that does not have a coefficient for race that conforms to the NKF-ASN Task Force Recommendations. Performed By: #### 4 6126 ####[facility] [address] [place] [address] Huber Prado M.D. [id number] Chloride [Moles/Vol] 107 mmol/L Normal 98-108 [facility] Comment on above: Order Comment: [facility] has implemented the eGFR calculation approach that does not have a coefficient for race that conforms to the NKF-ASN Task Force Recommendations. Performed By: #### 4 6126 ####[facility] [address] [place] [address] 82160 Huber Prado M.D. [id number] Creatinine [Mass/Vol] 1.41 mg/dL High 0.40-1.10 [facility] Comment on above: Order Comment: [facility] has implemented the eGFR calculation approach that does not have a coefficient for race that conforms to the NKF-ASN Task Force Recommendations. Performed By: #### 4 6126 ####[facility] [address] [place] [address] 37[address] Huber Prado M.D. [id number] EGFR 50 mL/min/1.73 m2 Low >=60 [facility] Comment on above: Order Comment: [facility] has implemented the eGFR calculation approach that does not have a coefficient for race that conforms to the NKF-ASN Task Force Recommendations. Result Comment: Neema mated GFR was calculated using the 2020 CKD-EPI creatinine equation. Performed By: #### 4 6126 ####[facility] [address] [place] [address] Huber Prado M.D. [id number] Glucose [Mass/Vol] 117 mg/dL High 65-99 [facility] Comment on above: Order Comment: [facility] has implemented the eGFR calculation approach that does not have a coefficient for race that conforms to the NKF-ASN Task Force Recommendations. Performed By: #### 4 6126 ####[facility] [address] [place], [place] [address] Huber Prado M.D. [id number] HCO3 (Bld) [Moles/Vol] 23 mmol/L Normal 21-32 [facility] Comment on above: Order Comment: [facility] has implemented the eGFR calculation approach that does not have a coefficient for race that conforms to the NKF-ASN Task Force Recommendations. Performed By: #### 4 6126 ####[facility] [address] [place] [address] Huber Prado M.D. [id number] Potassium [Moles/Vol] 4.1 mmol/L Normal 3.5-5.1 [facility] Comment on above: Order Comment: [facility] has implemented the eGFR calculation approach that does not have a coefficient for race that conforms to the NKF-ASN Task Force Recommendations. Performed By: #### 4 6126 ####[facility] [address] [place] [address] Huber Prado M.D. [id number] Protein [Mass/Vol] 6.9 g/dL Normal 6.0-8.0 [facility] Comment on above: Order Comment: [facility] has implemented the eGFR calculation approach that does not have a coefficient for race that conforms to the NKF-ASN Task Force Recommendations. Performed By: #### 4 6126 ####[facility] [address] [place], [place] [address] Huber Prado M.D. [id number] Sodium [Moles/Vol] 145 mmol/L Normal 135-145 [facility] Comment on above: Order Comment: [facility] has implemented the eGFR calculation approach that does not have a coefficient for race that conforms to the NKF-ASN Task Force Recommendations. Performed By: #### 4 6126 ####[facility] [address] [place] [address] 95401 Huber Prado M.D. [id number] Urea nitrogen [Mass/Vol] 41 mg/dL High 8-25 [facility] Comment on above: Order Comment: [facility] has implemented the eGFR calculation approach that does not have a coefficient for race that conforms to the NKF-ASN Task Force Recommendations. Performed By: #### 4 6126 ####[facility] [address] [place] [address] Huber Prado M.D. [id number] Urea nitrogen/Creatinine [Mass ratio] 29.1 mg/mg High 10.0-20.0 [facility] Comment on above: Order Comment: [facility] has implemented the eGFR calculation approach that does not have a coefficient for race that conforms to the NKF-ASN Task Force Recommendations. Performed By: #### 4 6126 ####[facility] [address] [place] [address] Huber Prado M.D. [id number] CONSULTon 05-07-2024 CONSULT Noted added for clearance of consult order. Please see consult completed by Dr. Viera AUTHENTICATED BY BRUNO BLOUNT, ON 05/07/2024 14:03:01 Normal [facility] CONSULT Normal [facility] OP NOTEon 05-07-2024 OP NOTE Normal [facility] PHOSPHORUSon 05-07-2024 Phosphate [Mass/Vol] 4.6 mg/dL High 2.7-4.5 [facility] Comment on above: Performed By: #### 4 6299 ####[facility] [address] [place] [address] Huber Prado M.D. [id number] [facility] Glucose [Mass/Vol] 124 mg/dL High 65-99 [facility] Comment on above: Performed By: #### 4 6932 ####[facility] [address] [place] [address] [id number] RMHPOC Glucose [Mass/Vol] 132 mg/dL High 65-99 [facility] Comment on above: Performed By: #### 4 6932 ####[facility] [address] [place] [address] [id number] RM[facility]OC Glucose [Mass/Vol] 109 mg/dL High [address] [place] [address] Comment on above: Performed By: #### 4 6932 ####[facility] [address] [place] [address] [id number] RM[facility] Glucose [Mass/Vol] 116 mg/dL [address] Comment on above: Performed By: #### 4 6932 ####[facility] [address] [place] [address] [id number] RM[facility] Glucose [Mass/Vol] 125 mg/dL [address] Comment on above: Performed By: #### 4 6932 ####[facility] [address] [place] [address] [id number] [facility] Glucose [Mass/Vol] 110 mg/dL [address] Comment on above: Performed By: #### 4 6932 ####[facility] [address] [place] [address] [id number] [facility] CBC WITH AUTO DIFFERENTIALon 05-06-2024 AUTO NRBC 0.0 % Normal [facility] Comment on above: Performed By: #### L [id number] ####[facility] [address] [place] [address] Huber Prado M.D. [id number] AUTO NRBC ABS COUNT 0.00 K/mcL Normal 0.00-0.[address] [facility] Comment on above: Performed By: #### L [id number] ####[facility] [address] [place] [address] Huber Prado M.D. [id number] BASOPHILS ABSOLUTE COUNT 0.13 K/mcL Normal 0.00-0.30 [facility] Comment on above: Performed By: #### L [id number] ####[facility] [address] [place] [address] Huber Prado M.D. [id number] Basophils/100 WBC (Bld) 1.0 % Normal [facility] Comment on above: Performed By: #### L [id number] ####[facility] [address] [place] [address] Huber Prado M.D. [id number] Eosinophils (Bld) [#/Vol] 0.37 10*3/uL Normal 0.00-0.50 [facility] Comment on above: Performed By: #### L [id number] ####[facility] [address] [place] [address] Huber Prado M.D. [id number] Eosinophils/100 WBC (Bld) 2.9 % Normal [facility] Comment on above: Performed By: #### L [id number] ####[facility] [address] [place] [address] Huber Prado M.D. [id number] Erythrocyte distribution width (RBC) [Ratio] 15.4 % High 11.6-14.8 [facility] Comment on above: Performed By: #### L [id number] ####[facility] [address] [place] [address] Huber Prado M.D. [id number] Hematocrit (Bld) [Volume fraction] 24.7 % Low 36.0-46.0 [facility] Comment on above: Performed By: #### L [id number] ####[facility] [address] [place], [place] [address] Huber Prado M.D. [id number] Hemoglobin (Bld) [Mass/Vol] 8.0 g/dL Low 12.0-16.0 [facility] Comment on above: Performed By: #### L [id number] ####[facility] [address] [place] [address] Huber Prado M.D. [id number] IG ABSOLUTE 0.23 K/mcL Normal 0.00-0.30 [facility] Comment on above: Performed By: #### L [id number] ####[facility] [address] [place], [place] [address] Huber Prado M.D. [id number] IG PERCENT 1.80 % Normal [facility] Comment on above: Result Comment: The IG parameter is the percentage of metamyelocytes, myelocytes and promyelocytes. An immature granulocyte count (IG) of 1% or more suggests the possibility of infection, an IG count of 3% is very likely related to an infection. Performed By: #### Tasha [id number] ####[facility] [address] [place] [address] Huber Prado M.D. [id number] Lymphocytes (Bld) [#/Vol] 2.29 10*3/uL Normal 0.90-4.00 [facility] Comment on above: Performed By: #### Tasha [id number] ####[facility] [address] [place] [address] Huber Prado M.D. [id number] Lymphocytes/100 WBC (Bld) 17.7 % Normal [facility] Comment on above: Performed By: #### Tasha [id number] ####[facility] [address] [place] [address] Huber Prado M.D. [id number] MCH (RBC) [Entitic mass] 30.9 pg Normal 26.0-34.0 [facility] Comment on above: Performed By: #### Tasha [id number] ####[facility] [address] [place], [place] [address] Huber Prado M.D. [id number] MCV (RBC) [Entitic vol] 95.4 fL Normal 80.0-100.0 [facility] Comment on above: Performed By: #### L [id number] ####[facility] [address] [place], [place] [address] Huber Prado M.D. [id number] MEAN CORPUSCULAR HEMOGLOBIN CONC 32.4 g/dL Normal 31.0-37.0 [facility] Comment on above: Performed By: #### Tasha [id number] ####[facility] [address] [place] [address] Huber Prado M.D. [id number] Monocytes (Bld) [#/Vol] 0.78 10*3/uL Normal 0.30-0.90 [facility] Comment on above: Performed By: #### Tasha [id number] ####[facility] [address] [place] [address] Huber Prado M.D. [id number] Monocytes/100 WBC (Bld) 6.0 % Normal [facility] Comment on above: Performed By: #### Tasha [id number] ####[facility] [address] [place] [address] Huber Prado M.D. [id number] NEUTROPHILS ABSOLUTE COUNT 9.16 K/mcL High 1.70-7.00 [facility] Comment on above: Performed By: #### Tasha [id number] ####[facility] [address] [place], [place] [address] Huber Prado M.D. [id number] Neutrophils/100 WBC (Bld) 70.6 % Normal [facility] Comment on above: Performed By: #### Tasha [id number] ####[facility] [address] [place], [place] [address] Huber Prado M.D. [id number] Platelet mean volume (Bld) [Entitic vol] 11.7 fL Normal 9.4-12.4 [facility] Comment on above: Performed By: #### L [id number] ####[facility] [address] [place] [address] 690[address] Huber Prado M.D. [id number] Platelets (Bld) [#/Vol] 362 10*3/uL Normal 150-400 [facility] Comment on above: Performed By: #### L [id number] ####[facility] [address] [place] [address] 392[address] Huber Prado M.D. [id number] RBC (Bld) [#/Vol] 2.59 10*6/uL Low 4.00-5.[address] [facility] Comment on above: Performed By: #### L [id number] ####[facility] [address] [place] [address] 88728 Huber Prado M.D. [id number] WBC (Bld) [#/Vol] 12.96 10*3/uL High 4.50-11.00 [facility] Comment on above: Performed By: #### L [id number] ####[facility] [address] [place] [address] 09111 Huber Prado M.D. [id number] COMPREHENSIVE METABOLIC PANE [facility] 05-06-2024 Albumin [Mass/Vol] 3.3 g/dL Normal 3.2-5.2 [facility] Comment on above: Order Comment: [facility] Services has implemented the eGFR calculation approach that does not have a coefficient for race that conforms to the NKF-ASN Task Force Recommendations. Performed By: #### 4 [id number] ####[facility] [address] [place] [address] 35950 Huber Prado M.D. [id number] ALP [Catalytic activity/Vol] 176 U/L High 40-140 [facility] Comment on above: Order Comment: [facility] Services has implemented the eGFR calculation approach that does not have a coefficient for race that conforms to the NKF-ASN Task Force Recommendations. Performed By: #### 4 [id number] ####[facility] [address] [place] [address] 51527 Huber Prado M.D. [id number] ALT [Catalytic activity/Vol] 22 U/L Normal 0-35 U/L [facility] Comment on above: Order Comment: [facility] Services has implemented the eGFR calculation approach that does not have a coefficient for race that conforms to the NKF-ASN Task Force Recommendations. Performed By: #### 4 6126 ####[facility] [address] [place], [place] [address] Huber Prado M.D. [id number] Anion gap [Moles/Vol] 19 mmol/L Normal 10-20 [facility] Comment on above: Order Comment: [facility] Services has implemented the eGFR calculation approach that does not have a coefficient for race that conforms to the NKF-ASN Task Force Recommendations. Performed By: #### 4 6126 ####[facility] [address] [place], [place] [address] Huber Prado M.D. [id number] AST [Catalytic activity/Vol] 16 U/L Normal 0-35 U/L [facility] Comment on above: Order Comment: [facility] Services has implemented the eGFR calculation approach that does not have a coefficient for race that conforms to the NKF-ASN Task Force Recommendations. Result Comment: Slig htly Hemolyzed Performed By: #### 4 6126 ####[facility] [address] [place], [place] [address] Huber Prado M.D. [id number] BILIRUBIN TOTAL < Normal 0.0-1.3 [facility] Comment on above: Order Comment: [facility] Services has implemented the eGFR calculation approach that does not have a coefficient for race that conforms to the NKF-ASN Task Force Recommendations. Performed By: #### 4 6126 ####[facility] [address] [place] [address] 04715 Huber Prado M.D. [id number] Calcium [Mass/Vol] 9.2 mg/dL Normal 8.4-10.2 [facility] Comment on above: Order Comment: [facility] Services has implemented the eGFR calculation approach that does not have a coefficient for race that conforms to the NKF-ASN Task Force Recommendations. Performed By: #### 4 6126 ####[facility] [address] [place], [place] [address] Huber Prado M.D. [id number] Chloride [Moles/Vol] 110 mmol/L High 98-108 [facility] Comment on above: Order Comment: [facility] Services has implemented the eGFR calculation approach that does not have a coefficient for race that conforms to the NKF-ASN Task Force Recommendations. Performed By: #### 4 6126 ####[facility] [address] [place], [place] [address] Huber Prado M.D. [id number] Creatinine [Mass/Vol] 1.81 mg/dL High 0.40-1.10 [facility] Comment on above: Order Comment: [facility] Services has implemented the eGFR calculation approach that does not have a coefficient for race that conforms to the NKF-ASN Task Force Recommendations. Performed By: #### 4 6126 ####[facility] [address] [place] [address] 61648 Huber Prado M.D. [id number] EGFR 37 mL/min/1.73 m2 Low >=60 [facility] Comment on above: Order Comment: [facility] Services has implemented the eGFR calculation approach that does not have a coefficient for race that conforms to the NKF-ASN Task Force Recommendations. Result Comment: Neema mated GFR was calculated using the 2020 CKD-EPI creatinine equation. Performed By: #### 4 6126 ####[facility] [address] [place] [address] 44653 Huber Prado M.D. [id number] Glucose [Mass/Vol] 116 mg/dL High 65-99 [facility] Comment on above: Order Comment: [facility] Services has implemented the eGFR calculation approach that does not have a coefficient for race that conforms to the NKF-ASN Task Force Recommendations. Performed By: #### 4 6126 ####[facility] [address] [place] [address] 60486 Huber Prado M.D. [id number] HCO3 (Bld) [Moles/Vol] 21 mmol/L Normal 21-32 [facility] Comment on above: Order Comment: [facility] Services has implemented the eGFR calculation approach that does not have a coefficient for race that conforms to the NKF-ASN Task Force Recommendations. Performed By: #### 4 6126 ####[facility] [address] [place], [place] [address] Huber Prado M.D. [id number] Potassium [Moles/Vol] 3.6 mmol/L Normal 3.5-5.1 [facility] Comment on above: Order Comment: [facility] has implemented the eGFR calculation approach that does not have a coefficient for race that conforms to the NKF-ASN Task Force Recommendations. Result Comment: Slig htly Hemolyzed Performed By: #### 4 6126 ####[facility] [address] [place] [address] 62240 Huber Prado M.D. [id number] Protein [Mass/Vol] 6.9 g/dL Normal 6.0-8.0 [facility] Comment on above: Order Comment: [facility] Services has implemented the eGFR calculation approach that does not have a coefficient for race that conforms to the NKF-ASN Task Force Recommendations. Performed By: #### 4 6126 ####[facility] [address] [place], [place] [address] Huber Prado M.D. [id number] Sodium [Moles/Vol] 146 mmol/L High 135-145 [facility] Comment on above: Order Comment: [facility] Services has implemented the eGFR calculation approach that does not have a coefficient for race that conforms to the NKF-ASN Task Force Recommendations. Performed By: #### 4 6126 ####[facility] [address] [place] [address] 77350 Huber Prado M.D. [id number] Urea nitrogen [Mass/Vol] 46 mg/dL High 8-25 [facility] Comment on above: Order Comment: [facility] Services has implemented the eGFR calculation approach that does not have a coefficient for race that conforms to the NKF-ASN Task Force Recommendations. Performed By: #### 4 6126 ####[facility] [address] [place] [address] 66983 Huber Prado M.D. [id number] Urea nitrogen/Creatinine [Mass ratio] 25.4 mg/mg High 10.0-20.0 [facility] Comment on above: Order Comment: [facility] Services has implemented the eGFR calculation approach that does not have a coefficient for race that conforms to the NKF-ASN Task Force Recommendations. Performed By: #### 4 6126 ####[facility] [address] [place] [address] 35025 Huber Prado M.D. [id number] CT CHEST ABDOMEN PELVIS WITH OUT CONTRASTon 05-06-2024 CT CHEST ABDOMEN PELVIS WITHOUT CONTRAST Normal [facility] Comment on above: Order Comment: Injur y/Trauma or Illness?:Illness/OtherHow long have you had these symptoms (acute/chronic)?:AcuteReason for exam?:Sepsis; eval for interval pulmonary infiltrates or alternative sources of infection to explain feversType of Exam?:InitialAdditional signs and symptoms?:Sepsis; eval for interval pulmonary infiltrates or alternative sources of infection to explain fevers PHOSPHORUSon 05-06-2024 Phosphate [Mass/Vol] 3.4 mg/dL Normal 2.7-4.5 [facility] Comment on above: Performed By: #### 4 6299 ####[facility] [address] [place] [address] 88563 Huber Prado M.D. [id number] POC GLUCOSE - [facility] 024 Glucose [Mass/Vol] 103 mg/dL High [address] [place] [address] Comment on above: Performed By: #### 4 6932 ####[facility] [address] [place] [address] [id number] [facility] Glucose [Mass/Vol] 109 mg/dL [address] Comment on above: Performed By: #### 4 6932 ####[facility] [address] [place] [address] [id number] [facility] Glucose [Mass/Vol] 115 mg/dL [address] Comment on above: Performed By: #### 4 6959 ####[facility] [address] [place] [address] [id number] [facility] Glucose [Mass/Vol] 133 mg/dL [address] Comment on above: Performed By: #### 4 6932 ####[facility] [address] [place] [address] [id number] [facility] Glucose [Mass/Vol] 120 mg/dL [address] Comment on above: Performed By: #### 4 6974 ####[facility] [address] [place] [address] [id number] [facility] Glucose [Mass/Vol] 129 mg/dL [address] Comment on above: Performed By: #### 4 6913 ####[facility] [address] [place] [address] [id number] [facility] POTASSIUM LEVELon 05-06-2024 Potassium [Moles/Vol] 4.3 mmol/L Normal 3.5-5.1 [facility] Comment on above: Performed By: #### 4 6351 ####[facility] [address] [place] [address] Huber Prado M.D. [id number] VANCOMYCIN LEVEL, RANDOMon 0 05-06-2024 VANCOMYCIN RANDOM 31.8 mcg/mL Normal [facility] Comment on above: Order Comment: As of 05/2022 vancomycin dosing for [facility] inpatients will be done by Bayesian dosing software rather than off traditional trough values. Please contact the site specific inpatient pharmacy before making dose changes off of trough values alone for admitted patients.No established reference range. Performed By: #### 4 6651 ####[facility] [address] [place] [address] Huber Prado M.D. [id number] CBC WITH AUTO DIFFERENTIALon 05-05-2024 AUTO NRBC 0.0 % Normal [facility] Comment on above: Performed By: #### L [id number] ####[facility] [address] [place] [address] Huber Prado M.D. [id number] AUTO NRBC ABS COUNT 0.00 K/mcL Normal 0.00-0.[address] [facility] Comment on above: Performed By: #### L [id number] ####[facility] [address] [place] [address] Huber Prado M.D. [id number] BASOPHILS ABSOLUTE COUNT 0.11 K/mcL Normal 0.00-0.30 [facility] Comment on above: Performed By: #### L [id number] ####[facility] [address] [place] [address] Huber Prado M.D. [id number] Basophils/100 WBC (Bld) 0.8 % Normal [facility] Comment on above: Performed By: #### L [id number] ####[facility] [address] [place], [place] [address] Huber Prado M.D. [id number] Eosinophils (Bld) [#/Vol] 0.30 10*3/uL Normal 0.00-0.50 [facility] Comment on above: Performed By: #### L [id number] ####[facility] [address] [place] [address] Huber Prado M.D. [id number] Eosinophils/100 WBC (Bld) 2.0 % Normal [facility] Comment on above: Performed By: #### L [id number] ####[facility] [address] [place] [address] Huber Prado M.D. [id number] Erythrocyte distribution width (RBC) [Ratio] 15.3 % High 11.6-14.8 [facility] Comment on above: Performed By: #### L [id number] ####[facility] [address] [place] [address] Huber Prado M.D. [id number] Hematocrit (Bld) [Volume fraction] 25.0 % Low 36.0-46.0 [facility] Comment on above: Performed By: #### L [id number] ####[facility] [address] [place] [address] Huber Prado M.D. [id number] Hemoglobin (Bld) [Mass/Vol] 8.0 g/dL Low 12.0-16.0 [facility] Comment on above: Performed By: #### L [id number] ####[facility] [address] [place] [address] Huber Prado M.D. [id number] IG ABSOLUTE 0.33 K/mcL High 0.00-0.30 [facility] Comment on above: Performed By: #### L [id number] ####[facility] [address] [place] [address] Huber Prado M.D. [id number] IG PERCENT 2.30 % Normal [facility] Comment on above: Result Comment: The IG parameter is the percentage of metamyelocytes, myelocytes and promyelocytes. An immature granulocyte count (IG) of 1% or more suggests the possibility of infection, an IG count of 3% is very likely related to an infection. Performed By: #### L [id number] ####[facility] [address] [place] [address] Huber Prado M.D. [id number] Lymphocytes (Bld) [#/Vol] 2.33 10*3/uL Normal 0.90-4.00 [facility] Comment on above: Performed By: #### L [id number] ####[facility] [address] [place] [address] Huber Prado M.D. [id number] Lymphocytes/100 WBC (Bld) 15.9 % Normal [facility] Comment on above: Performed By: #### Tasha [id number] ####[facility] [address] [place] [address] Huber Prado M.D. [id number] MCH (RBC) [Entitic mass] 30.1 pg Normal 26.0-34.0 [facility] Comment on above: Performed By: #### Tasha [id number] ####[facility] [address] [place] [address] Huber Prado M.D. [id number] MCV (RBC) [Entitic vol] 94.0 fL Normal 80.0-100.0 [facility] Comment on above: Performed By: #### L [id number] ####[facility] [address] [place] [address] Huber Prado M.D. [id number] MEAN CORPUSCULAR HEMOGLOBIN CONC 32.0 g/dL Normal 31.0-37.0 [facility] Comment on above: Performed By: #### L [id number] ####[facility] [address] [place] [address] Huber Prado M.D. [id number] Monocytes (Bld) [#/Vol] 0.87 10*3/uL Normal 0.30-0.90 [facility] Comment on above: Performed By: #### L [id number] ####[facility] [address] [place], [place] [address] Huber Prado M.D. [id number] Monocytes/100 WBC (Bld) 5.9 % Normal [facility] Comment on above: Performed By: #### L [id number] ####[facility] [address] [place] [address] Huber Prado M.D. [id number] NEUTROPHILS ABSOLUTE COUNT 10.70 K/mcL High 1.70-7.00 [facility] Comment on above: Performed By: #### L [id number] ####[facility] [address] [place] [address] Huber Prado M.D. [id number] Neutrophils/100 WBC (Bld) 73.1 % Normal [facility] Comment on above: Performed By: #### L [id number] ####[facility] [address] [place] [address] Huber Prado M.D. [id number] Platelet mean volume (Bld) [Entitic vol] 11.3 fL Normal 9.4-12.4 [facility] Comment on above: Performed By: #### L [id number] ####[facility] [address] [place], [place] [address] Huber Prado M.D. [id number] Platelets (Bld) [#/Vol] 361 10*3/uL Normal 150-400 [facility] Comment on above: Performed By: #### L [id number] ####[facility] [address] [place], [place] [address] Huber Prado M.D. [id number] RBC (Bld) [#/Vol] 2.66 10*6/uL Low 4.00-5.[address] [facility] Comment on above: Performed By: #### L [id number] ####[facility] [address] [place] [address] 82920 Huber Prado M.D. [id number] WBC (Bld) [#/Vol] 14.64 10*3/uL High 4.50-11.00 [facility] Comment on above: Performed By: #### L [id number] ####[facility] [address] [place] [address] 81546 Huber Prado M.D. [id number] COMPREHENSIVE METABOLIC PANE [facility] 05-05-2024 Albumin [Mass/Vol] 3.3 g/dL Normal 3.2-5.2 [facility] Comment on above: Order Comment: [facility] Services has implemented the eGFR calculation approach that does not have a coefficient for race that conforms to the NKF-ASN Task Force Recommendations. Performed By: #### 4 6126 ####[facility] [address] [place], [place] [address] Huber Prado M.D. [id number] ALP [Catalytic activity/Vol] 179 U/L High 40-140 [facility] Comment on above: Order Comment: [facility] Services has implemented the eGFR calculation approach that does not have a coefficient for race that conforms to the NKF-ASN Task Force Recommendations. Performed By: #### 4 6126 ####[facility] [address] [place] [address] 52695 Huber Prado M.D. [id number] ALT [Catalytic activity/Vol] 24 U/L Normal 0-35 U/L [facility] Comment on above: Order Comment: [facility] Services has implemented the eGFR calculation approach that does not have a coefficient for race that conforms to the NKF-ASN Task Force Recommendations. Performed By: #### 4 6126 ####[facility] [address] [place] [address] 91166 Huber Prado M.D. [id number] Anion gap [Moles/Vol] 18 mmol/L Normal 10-20 [facility] Comment on above: Order Comment: [facility] Services has implemented the eGFR calculation approach that does not have a coefficient for race that conforms to the NKF-ASN Task Force Recommendations. Performed By: #### 4 6126 ####[facility] [address] [place], [place] [address] Huber Prado M.D. [id number] AST [Catalytic activity/Vol] 17 U/L Normal 0-35 U/L [facility] Comment on above: Order Comment: [facility] Services has implemented the eGFR calculation approach that does not have a coefficient for race that conforms to the NKF-ASN Task Force Recommendations. Performed By: #### 4 6126 ####[facility] [address] [place], [place] [address] Huber Prado M.D. [id number] Bilirubin [Mass/Vol] 0.2 mg/dL Normal 0.0-1.3 [facility] Comment on above: Order Comment: [facility] Services has implemented the eGFR calculation approach that does not have a coefficient for race that conforms to the NKF-ASN Task Force Recommendations. Performed By: #### 4 6126 ####[facility] [address] [place] [address] 86244 Huber Prado M.D. [id number] Calcium [Mass/Vol] 8.5 mg/dL Normal 8.4-10.2 [facility] Comment on above: Order Comment: [facility] Services has implemented the eGFR calculation approach that does not have a coefficient for race that conforms to the NKF-ASN Task Force Recommendations. Performed By: #### 4 6126 ####[facility] [address] [place] [address] 39635 Huber Prado M.D. [id number] Chloride [Moles/Vol] 106 mmol/L Normal 98-108 [facility] Comment on above: Order Comment: [facility] Services has implemented the eGFR calculation approach that does not have a coefficient for race that conforms to the NKF-ASN Task Force Recommendations. Performed By: #### 4 6126 ####[facility] [address] [place] [address] 21132 Huber Prado M.D. [id number] Creatinine [Mass/Vol] 1.75 mg/dL High 0.40-1.10 [facility] Comment on above: Order Comment: [facility] has implemented the eGFR calculation approach that does not have a coefficient for race that conforms to the NKF-ASN Task Force Recommendations. Performed By: #### 4 6126 ####[facility] [address] [place] [address] 55137 Huber Prado M.D. [id number] EGFR 39 mL/min/1.73 m2 Low >=60 [facility] Comment on above: Order Comment: [facility] has implemented the eGFR calculation approach that does not have a coefficient for race that conforms to the NKF-ASN Task Force Recommendations. Result Comment: Neema mated GFR was calculated using the 2020 CKD-EPI creatinine equation. Performed By: #### 4 6126 ####[facility] [address] [place] [address] 92232 Huber Prado M.D. [id number] Glucose [Mass/Vol] 144 mg/dL High 65-99 [facility] Comment on above: Order Comment: [facility] has implemented the eGFR calculation approach that does not have a coefficient for race that conforms to the NKF-ASN Task Force Recommendations. Performed By: #### 4 6126 ####[facility] [address] [place] [address] 24687 Huber Prado M.D. [id number] HCO3 (Bld) [Moles/Vol] 22 mmol/L Normal 21-32 [facility] Comment on above: Order Comment: [facility] has implemented the eGFR calculation approach that does not have a coefficient for race that conforms to the NKF-ASN Task Force Recommendations. Performed By: #### 4 6126 ####[facility] [address] [place] [address] 81118 Huber Prado M.D. [id number] Potassium [Moles/Vol] 3.2 mmol/L Low 3.5-5.1 [facility] Comment on above: Order Comment: [facility] Services has implemented the eGFR calculation approach that does not have a coefficient for race that conforms to the NKF-ASN Task Force Recommendations. Performed By: #### 4 6126 ####[facility] [address] [place] [address] 82811 Huber Prado M.D. [id number] Protein [Mass/Vol] 6.5 g/dL Normal 6.0-8.0 [facility] Comment on above: Order Comment: [place] [facility] Services has implemented the eGFR calculation approach that does not have a coefficient for race that conforms to the NKF-ASN Task Force Recommendations. Performed By: #### 4 6126 ####[facility] [address] [place] [address] 79811 Huber Prado M.D. [id number] Sodium [Moles/Vol] 143 mmol/L Normal 135-145 [facility] Comment on above: Order Comment: [facility] has implemented the eGFR calculation approach that does not have a coefficient for race that conforms to the NKF-ASN Task Force Recommendations. Performed By: #### 4 6126 ####[facility] [address] [place] [address] 20733 Huber Prado M.D. [id number] Urea nitrogen [Mass/Vol] 50 mg/dL High 8-25 [facility] Comment on above: Order Comment: [facility] Services has implemented the eGFR calculation approach that does not have a coefficient for race that conforms to the NKF-ASN Task Force Recommendations. Performed By: #### 4 6126 ####[facility] [address] [place] [address] 78884 Huber Prado M.D. [id number] Urea nitrogen/Creatinine [Mass ratio] 28.6 mg/mg High 10.0-20.0 [facility] Comment on above: Order Comment: [facility] Services has implemented the eGFR calculation approach that does not have a coefficient for race that conforms to the NKF-ASN Task Force Recommendations. Performed By: #### 4 6126 ####[facility] [address] [place] [address] Huber Prado M.D. [id number] PHOSPHORUSon 05-05-2024 Phosphate [Mass/Vol] 4.4 mg/dL Normal 2.7-4.5 [facility] Comment on above: Performed By: #### 4 6299 ####[facility] [address] [place] [address] Huber Prado M.D. [id number] POC GLUCOSE [facility] 024 Glucose [Mass/Vol] 105 mg/dL High [address] [place] [address] Comment on above: Performed By: #### 4 6932 ####[facility] [address] [place] [address] [id number] RMHPOC Glucose [Mass/Vol] 126 mg/dL [address] Comment on above: Performed By: #### 4 6904 ####[facility] [address] [place] [address] [id number] RM[facility]OC Glucose [Mass/Vol] 128 mg/dL [address] Comment on above: Performed By: #### 4 6923 ####[facility] [address] [place] [address] [id number] RMHPOC Glucose [Mass/Vol] 133 mg/dL High [address] [place] [address] Comment on above: Performed By: #### 4 6982 ####[facility] [address] [place] [address] [id number] RMHPOC Glucose [Mass/Vol] 122 mg/dL High 65-99 [facility] Comment on above: Performed By: #### 4 6932 ####[facility] [address] [place] [address] [id number] RMHPOC Glucose [Mass/Vol] 138 mg/dL High 65-99 [facility] Comment on above: Performed By: #### 4 6932 ####[facility] [address] [place] [address] [id number] RM[facility] POTASSIUM LEVELon 05-05-2024 Potassium [Moles/Vol] 4.7 mmol/L Normal 3.5-5.1 [facility] Comment on above: Performed By: #### 4 6351 ####[facility] [address] [place] [address] Huber Prado M.D. [id number] US DUPLEX VENOUS ARMS BILATE RALon 05-05-2024 US DUPLEX VENOUS ARMS BILATERAL Normal [facility] US DUPLEX VENOUS ARMS BILATERAL Normal [facility] VANCOMYCIN LEVEL, RANDOMon 0 05-05-2024 VANCOMYCIN RANDOM 10.5 mcg/mL Normal [facility] Comment on above: Order Comment: As of 05/2022 vancomycin dosing for [facility] inpatients will be done by Bayesian dosing software rather than off traditional trough values. Please contact the site specific inpatient pharmacy before making dose changes off of trough values alone for admitted patients.No established reference range. Performed By: #### 4 6651 ####[facility] [address] [place] [address] Huber Prado M.D. [id number] CBC WITH AUTO DIFFERENTIALon 05-04-2024 AUTO NRBC 0.0 % Normal [facility] Comment on above: Performed By: #### L [id number] ####[facility] [address] [place] [address] Huber Prado M.D. [id number] AUTO NRBC ABS COUNT 0.00 K/mcL Normal 0.00-0.[address] [facility] Comment on above: Performed By: #### L [id number] ####[facility] [address] [place] [address] Huber Prado M.D. [id number] BASOPHILS ABSOLUTE COUNT 0.12 K/mcL Normal 0.00-0.30 [facility] Comment on above: Performed By: #### L [id number] ####[facility] [address] [place] [address] Huber Prado M.D. [id number] Basophils/100 WBC (Bld) 0.8 % Normal [facility] Comment on above: Performed By: #### L [id number] ####[facility] [address] [place] [address] Huber Prado M.D. [id number] Eosinophils (Bld) [#/Vol] 0.35 10*3/uL Normal 0.00-0.50 [facility] Comment on above: Performed By: #### L [id number] ####[facility] [address] [place] [address] Huber Prado M.D. [id number] Eosinophils/100 WBC (Bld) 2.4 % Normal [facility] Comment on above: Performed By: #### L [id number] ####[facility] [address] [place] [address] Huber Prado M.D. [id number] Erythrocyte distribution width (RBC) [Ratio] 14.7 % Normal 11.6-14.8 [facility] Comment on above: Performed By: #### L [id number] ####[facility] [address] [place] [address] Huber Prado M.D. [id number] Hematocrit (Bld) [Volume fraction] 27.5 % Low 36.0-46.0 [facility] Comment on above: Performed By: #### L [id number] ####[facility] [address] [place], [place] [address] Huber Prado M.D. [id number] Hemoglobin (Bld) [Mass/Vol] 9.0 g/dL Low 12.0-16.0 [facility] Comment on above: Performed By: #### Tasha [id number] ####[facility] [address] [place], [place] [address] Huber Prado M.D. [id number] IG ABSOLUTE 0.36 K/mcL High 0.00-0.30 [facility] Comment on above: Performed By: #### L [id number] ####[facility] [address] [place] [address] Huber Prado M.D. [id number] IG PERCENT 2.40 % Normal [facility] Comment on above: Result Comment: The IG parameter is the percentage of metamyelocytes, myelocytes and promyelocytes. An immature granulocyte count (IG) of 1% or more suggests the possibility of infection, an IG count of 3% is very likely related to an infection. Performed By: #### L [id number] ####[facility] [address] [place], [place] [address] Huber Prado M.D. [id number] Lymphocytes (Bld) [#/Vol] 1.72 10*3/uL Normal 0.90-4.00 [facility] Comment on above: Performed By: #### L [id number] ####[facility] [address] [place], [place] [address] Huber Prado M.D. [id number] Lymphocytes/100 WBC (Bld) 11.6 % Normal [facility] Comment on above: Performed By: #### L [id number] ####[facility] [address] [place], [place] [address] Huber Prado M.D. [id number] MCH (RBC) [Entitic mass] 30.3 pg Normal 26.0-34.0 [facility] Comment on above: Performed By: #### L [id number] ####[facility] [address] [place] [address] Huber Prado M.D. [id number] MCV (RBC) [Entitic vol] 92.6 fL Normal 80.0-100.0 [facility] Comment on above: Performed By: #### Tasha [id number] ####[facility] [address] [place] [address] Huber Prado M.D. [id number] MEAN CORPUSCULAR HEMOGLOBIN CONC 32.7 g/dL Normal 31.0-37.0 [facility] Comment on above: Performed By: #### Tasha [id number] ####[facility] [address] [place] [address] Huber Prado M.D. [id number] Monocytes (Bld) [#/Vol] 1.03 10*3/uL High 0.30-0.90 [facility] Comment on above: Performed By: #### Tasha [id number] ####[facility] [address] [place] [address] Huber Prado M.D. [id number] Monocytes/100 WBC (Bld) 7.0 % Normal [facility] Comment on above: Performed By: #### Tasha [id number] ####[facility] [address] [place] [address] Huber Prado M.D. [id number] NEUTROPHILS ABSOLUTE COUNT 11.19 K/mcL High 1.70-7.00 [facility] Comment on above: Performed By: #### L [id number] ####[facility] [address] [place], [place] [address] Huber Prado M.D. [id number] Neutrophils/100 WBC (Bld) 75.8 % Normal [facility] Comment on above: Performed By: #### L [id number] ####[facility] [address] [place] [address] Huber Prado M.D. [id number] Platelet mean volume (Bld) [Entitic vol] 10.9 fL Normal 9.4-12.4 [facility] Comment on above: Performed By: #### L [id number] ####[facility] [address] [place], [place] [address] Huber Prado M.D. [id number] Platelets (Bld) [#/Vol] 315 10*3/uL Normal 150-400 [facility] Comment on above: Performed By: #### L [id number] ####[facility] [address] [place], [place] [address] Huber Prado M.D. [id number] RBC (Bld) [#/Vol] 2.97 10*6/uL Low 4.00-5.[address] [facility] Comment on above: Performed By: #### L [id number] ####[facility] [address] [place] [address] Huber Prado M.D. [id number] WBC (Bld) [#/Vol] 14.77 10*3/uL High 4.50-11.00 [facility] Comment on above: Performed By: #### L [id number] ####[facility] [address] [place], [place] [address] Huber Prado M.D. [id number] COMPREHENSIVE METABOLIC PANE Nate 05-04-2024 Albumin [Mass/Vol] 3.4 g/dL Normal 3.2-5.2 [facility] Comment on above: Order Comment: [facility] Laboratory Services has implemented the eGFR calculation approach that does not have a coefficient for race that conforms to the NKF-ASN Task Force Recommendations. Performed By: #### 4 6126 ####[facility] [address] [place], [place] [address] Huber Prado M.D. [id number] ALP [Catalytic activity/Vol] 201 U/L High 40-140 [facility] Comment on above: Order Comment: [facility] has implemented the eGFR calculation approach that does not have a coefficient for race that conforms to the NKF-ASN Task Force Recommendations. Performed By: #### 4 6126 ####[facility] [address] [place] [address] Huber Prado M.D. [id number] ALT [Catalytic activity/Vol] 38 U/L High 0-35 U/L [facility] Comment on above: Order Comment: [facility] has implemented the eGFR calculation approach that does not have a coefficient for race that conforms to the NKF-ASN Task Force Recommendations. Performed By: #### 4 6126 ####[facility] [address] [place], [place] [address] Huber Prado M.D. [id number] Anion gap [Moles/Vol] 18 mmol/L Normal 10-20 [facility] Comment on above: Order Comment: [facility] has implemented the eGFR calculation approach that does not have a coefficient for race that conforms to the NKF-ASN Task Force Recommendations. Performed By: #### 4 6126 ####[facility] [address] [place], [place] [address] Huber Prado M.D. [id number] AST [Catalytic activity/Vol] 20 U/L Normal 0-35 U/L [facility] Comment on above: Order Comment: [facility] Services has implemented the eGFR calculation approach that does not have a coefficient for race that conforms to the NKF-ASN Task Force Recommendations. Performed By: #### 4 6126 ####[facility] [address] [place], [place] [address] Huber Prado M.D. [id number] Bilirubin [Mass/Vol] 0.2 mg/dL Normal 0.0-1.3 [facility] Comment on above: Order Comment: [facility] Laboratory Services has implemented the eGFR calculation approach that does not have a coefficient for race that conforms to the NKF-ASN Task Force Recommendations. Performed By: #### 4 6126 ####[facility] [address] [place] [address] 612[address] Huber Prado M.D. [id number] Calcium [Mass/Vol] 8.9 mg/dL Normal 8.4-10.2 [facility] Comment on above: Order Comment: [facility] Laboratory Services has implemented the eGFR calculation approach that does not have a coefficient for race that conforms to the NKF-ASN Task Force Recommendations. Performed By: #### 4 6126 ####[facility] [address] [place] [address] 02452 Huber Prado M.D. [id number] Chloride [Moles/Vol] 100 mmol/L Normal 98-108 [facility] Comment on above: Order Comment: [facility] has implemented the eGFR calculation approach that does not have a coefficient for race that conforms to the NKF-ASN Task Force Recommendations. Performed By: #### 4 6126 ####[facility] [address] [place], [place] [address] Huber Prado M.D. [id number] Creatinine [Mass/Vol] 1.76 mg/dL High 0.40-1.10 [facility] Comment on above: Order Comment: [facility] has implemented the eGFR calculation approach that does not have a coefficient for race that conforms to the NKF-ASN Task Force Recommendations. Performed By: #### 4 6126 ####[facility] [address] [place] [address] Huber Prado M.D. [id number] EGFR 39 mL/min/1.73 m2 Low >=60 [facility] Comment on above: Order Comment: [facility] has implemented the eGFR calculation approach that does not have a coefficient for race that conforms to the NKF-ASN Task Force Recommendations. Result Comment: Neema mated GFR was calculated using the 2020 CKD-EPI creatinine equation. Performed By: #### 4 6126 ####[facility] [address] [place] [address] Huber Prado M.D. [id number] Glucose [Mass/Vol] 114 mg/dL High 65-99 [facility] Comment on above: Order Comment: [facility] Laboratory Services has implemented the eGFR calculation approach that does not have a coefficient for race that conforms to the NKF-ASN Task Force Recommendations. Performed By: #### 4 6126 ####[facility] [address] [place] [address] Huber Prado M.D. [id number] HCO3 (Bld) [Moles/Vol] 25 mmol/L Normal 21-32 [facility] Comment on above: Order Comment: [facility] Laboratory Services has implemented the eGFR calculation approach that does not have a coefficient for race that conforms to the NKF-ASN Task Force Recommendations. Performed By: #### 4 6126 ####[facility] [address] [place] [address] 645[address] Huber Prado M.D. [id number] Potassium [Moles/Vol] 3.5 mmol/L Normal 3.5-5.1 [facility] Comment on above: Order Comment: [facility] has implemented the eGFR calculation approach that does not have a coefficient for race that conforms to the NKF-ASN Task Force Recommendations. Performed By: #### 4 6126 ####[facility] [address] [place] [address] 16279 Huber Prado M.D. [id number] Protein [Mass/Vol] 6.7 g/dL Normal 6.0-8.0 [facility] Comment on above: Order Comment: [facility] Laboratory Services has implemented the eGFR calculation approach that does not have a coefficient for race that conforms to the NKF-ASN Task Force Recommendations. Performed By: #### 4 6126 ####[facility] [address] [place] [address] 42287 Huber Prado M.D. [id number] Sodium [Moles/Vol] 139 mmol/L Normal 135-145 [facility] Comment on above: Order Comment: [facility] Laboratory Services has implemented the eGFR calculation approach that does not have a coefficient for race that conforms to the NKF-ASN Task Force Recommendations. Performed By: #### 4 6126 ####[facility] [address] [place], [place] [address] Huber Prado M.D. [id number] Urea nitrogen [Mass/Vol] 49 mg/dL High 8-25 [facility] Comment on above: Order Comment: [facility] Laboratory Services has implemented the eGFR calculation approach that does not have a coefficient for race that conforms to the NKF-ASN Task Force Recommendations. Performed By: #### 4 6126 ####[facility] [address] [place], [place] [address] Huber Prado M.D. [id number] Urea nitrogen/Creatinine [Mass ratio] 27.8 mg/mg High 10.0-20.0 [facility] Comment on above: Order Comment: [facility] Laboratory Services has implemented the eGFR calculation approach that does not have a coefficient for race that conforms to the NKF-ASN Task Force Recommendations. Performed By: #### 4 6126 ####[facility] [address] [place] [address] Huber Prado M.D. [id number] POC GLUCOSE - [facility] 024 Glucose [Mass/Vol] 105 mg/dL High 65-99 [facility] Comment on above: Performed By: #### 4 6932 ####[facility] [address] [place] [address] [id number] RMHPOC Glucose [Mass/Vol] 102 mg/dL High 65-99 [facility] Comment on above: Performed By: #### 4 6932 ####[facility] [address] [place] [address] [id number] RMHPOC Glucose [Mass/Vol] 107 mg/dL [address] Comment on above: Performed By: #### 4 6932 ####[facility] [address] [place] [address] [id number] RMHPOC Glucose [Mass/Vol] 109 mg/dL [address] Comment on above: Performed By: #### 4 6932 ####[facility] [address] [place] [address] [id number] RM[facility] Glucose [Mass/Vol] 123 mg/dL [address] Comment on above: Performed By: #### 4 6932 ####[facility] [address] [place] [address] [id number] RMHPOC Glucose [Mass/Vol] 114 mg/dL [address] Comment on above: Performed By: #### 4 6932 ####[facility] [address] [place] [address] [id number] [facility] POTASSIUM LEVELon 05-04-2024 Potassium [Moles/Vol] 4.2 mmol/L Normal 3.5-5.1 [facility] Comment on above: Performed By: #### 4 6351 ####[facility] [address] [place] [address] Huber Prado M.D. [id number] DUPLEX VENOUS LEGS BILATE RALon 05-04-2024 DUPLEX VENOUS LEGS BILATERAL Normal [facility] VANCOMYCIN LEVEL, RANDOMon 0 05-04-2024 VANCOMYCIN RANDOM 21.2 mcg/mL Normal [facility] Comment on above: Order Comment: As of 05/2022 vancomycin dosing for [facility] inpatients will be done by Bayesian dosing software rather than off traditional trough values. Please contact the site specific inpatient pharmacy before making dose changes off of trough values alone for admitted patients.No established reference range. Performed By: #### 4 6651 ####[facility] [address] [place] [address] 20[address] Huber Prado M.D. [id number] BASIC METABOLIC PANELon 09-0 Anion gap [Moles/Vol] 20 mmol/L Normal 10-20 [facility] Comment on above: Order Comment: [facility] Laboratory Services has implemented the eGFR calculation approach that does not have a coefficient for race that conforms to the NKF-ASN Task Force Recommendations. Performed By: #### 4 6124 ####[facility] [address] [place] [address] 90[address] Huber Prado M.D. [id number] Calcium [Mass/Vol] 9.0 mg/dL Normal 8.4-10.2 [facility] Comment on above: Order Comment: [facility] Services has implemented the eGFR calculation approach that does not have a coefficient for race that conforms to the NKF-ASN Task Force Recommendations. Performed By: #### 4 6124 ####[facility] [address] [place] [address] Huber Prado M.D. [id number] Chloride [Moles/Vol] 96 mmol/L Low 98-108 [facility] Comment on above: Order Comment: [facility] Laboratory Services has implemented the eGFR calculation approach that does not have a coefficient for race that conforms to the NKF-ASN Task Force Recommendations. Performed By: #### 4 6124 ####[facility] [address] [place] [address] Huber Prado M.D. [id number] Creatinine [Mass/Vol] 1.31 mg/dL High 0.40-1.10 [facility] Comment on above: Order Comment: [facility] Services has implemented the eGFR calculation approach that does not have a coefficient for race that conforms to the NKF-ASN Task Force Recommendations. Performed By: #### 4 6124 ####[facility] [address] [place] [address] Huber Prado M.D. [id number] EGFR 55 mL/min/1.73 m2 Low >=60 [facility] Comment on above: Order Comment: [facility] Services has implemented the eGFR calculation approach that does not have a coefficient for race that conforms to the NKF-ASN Task Force Recommendations. Result Comment: Neema mated GFR was calculated using the 2020 CKD-EPI creatinine equation. Performed By: #### 4 6124 ####[facility] [address] [place], [place] [address] Huber Prado M.D. [id number] Glucose [Mass/Vol] 144 mg/dL High 65-99 [facility] Comment on above: Order Comment: [facility] Laboratory Services has implemented the eGFR calculation approach that does not have a coefficient for race that conforms to the NKF-ASN Task Force Recommendations. Performed By: #### 4 6124 ####[facility] [address] [place], [place] [address] Huber Prado M.D. [id number] HCO3 (Bld) [Moles/Vol] 25 mmol/L Normal 21-32 [facility] Comment on above: Order Comment: [facility] Laboratory Services has implemented the eGFR calculation approach that does not have a coefficient for race that conforms to the NKF-ASN Task Force Recommendations. Performed By: #### 4 6124 ####[facility] [address] [place], [place] [address] Huber Prado M.D. [id number] Potassium [Moles/Vol] 3.4 mmol/L Low 3.5-5.1 [facility] Comment on above: Order Comment: [facility] [facility] has implemented the eGFR calculation approach that does not have a coefficient for race that conforms to the NKF-ASN Task Force Recommendations. Result Comment: Slig htly Hemolyzed Performed By: #### 4 6124 ####[facility] [address] [place], [place] [address] Huber Prado M.D. [id number] Sodium [Moles/Vol] 138 mmol/L Normal 135-145 [facility] Comment on above: Order Comment: [facility] has implemented the eGFR calculation approach that does not have a coefficient for race that conforms to the NKF-ASN Task Force Recommendations. Performed By: #### 4 6124 ####[facility] [address] [place], [place] [address] Huber Prado M.D. [id number] Urea nitrogen [Mass/Vol] 38 mg/dL High 8-25 [facility] Comment on above: Order Comment: [facility] has implemented the eGFR calculation approach that does not have a coefficient for race that conforms to the NKF-ASN Task Force Recommendations. Performed By: #### 4 6168 ####[facility] [address] [place], [place] [address] Huber Prado M.D. [id number] Urea nitrogen/Creatinine [Mass ratio] 29.0 mg/mg High 10.0-20.0 [facility] Comment on above: Order Comment: [facility] has implemented the eGFR calculation approach that does not have a coefficient for race that conforms to the NKF-ASN Task Force Recommendations. Performed By: #### 4 6124 ####[facility] [address] [place] [address] Huber Prado M.D. [id number] BLOOD CULTURE AEROBIC/ANAERO BICon 05-03-2024 BLOOD CULTURE AEROBIC/ANAEROBIC BLOOD CULTURE No Growth after 5 days Normal [facility] Comment on above: Performed By: #### 4 4014 ####[facility] [address] [place] [address] Huber Prado M.D. [id number] BLOOD CULTURE AEROBIC/ANAEROBIC BLOOD CULTURE No Growth after 5 days Normal [facility] Comment on above: Performed By: #### 4 4018 ####[facility] [address] [place] [address] Huber Prado M.D. [id number] CBC WITH AUTO DIFFERENTIALon 05-03-2024 AUTO NRBC 0.0 % Normal [facility] Comment on above: Performed By: #### Tasha [id number] ####[facility] [address] [place] [address] Huber Prado M.D. [id number] AUTO NRBC ABS COUNT 0.00 K/mcL Normal 0.00-0.[address] [facility] Comment on above: Performed By: #### Tasha [id number] ####[facility] [address] [place] [address] Huber Prado M.D. [id number] BASOPHILS ABSOLUTE COUNT 0.15 K/mcL Normal 0.00-0.30 [facility] Comment on above: Performed By: #### Tasha [id number] ####[facility] [address] [place] [address] Huber Prado M.D. [id number] Basophils/100 WBC (Bld) 0.8 % Normal [facility] Comment on above: Performed By: #### Tasha [id number] ####[facility] [address] [place] [address] Huber Prado M.D. [id number] Eosinophils (Bld) [#/Vol] 0.47 10*3/uL Normal 0.00-0.50 [facility] Comment on above: Performed By: #### L [id number] ####[facility] [address] [place] [address] Huber Prado M.D. [id number] Eosinophils/100 WBC (Bld) 2.5 % Normal [facility] Comment on above: Performed By: #### Tasha [id number] ####[facility] [address] [place] [address] Huber Prado M.D. [id number] Erythrocyte distribution width (RBC) [Ratio] 14.5 % Normal 11.6-14.8 [facility] Comment on above: Performed By: #### L [id number] ####[facility] [address] [place] [address] Huber Prado M.D. [id number] Hematocrit (Bld) [Volume fraction] 30.8 % Low 36.0-46.0 [facility] Comment on above: Performed By: #### L [id number] ####[facility] [address] [place] [address] Huber Prado M.D. [id number] Hemoglobin (Bld) [Mass/Vol] 10.4 g/dL Low 12.0-16.0 [facility] Comment on above: Performed By: #### L [id number] ####[facility] [address] [place] [address] Huber Prado M.D. [id number] IG ABSOLUTE 0.64 K/mcL High 0.00-0.30 [facility] Comment on above: Performed By: #### L [id number] ####[facility] [address] [place] [address] Huber Prado M.D. [id number] IG PERCENT 3.40 % Normal [facility] Comment on above: Result Comment: The IG parameter is the percentage of metamyelocytes, myelocytes and promyelocytes. An immature granulocyte count (IG) of 1% or more suggests the possibility of infection, an IG count of 3% is very likely related to an infection. Performed By: #### L [id number] ####[facility] [address] [place] [address] Huber Prado M.D. [id number] Lymphocytes (Bld) [#/Vol] 1.75 10*3/uL Normal 0.90-4.00 [facility] Comment on above: Performed By: #### L [id number] ####[facility] [address] [place] [address] Huber Prado M.D. [id number] Lymphocytes/100 WBC (Bld) 9.2 % Normal [facility] Comment on above: Performed By: #### Tasha [id number] ####[facility] [address] [place] [address] Huber Prado M.D. [id number] MCH (RBC) [Entitic mass] 31.3 pg Normal 26.0-34.0 [facility] Comment on above: Performed By: #### Tasha [id number] ####[facility] [address] [place] [address] Huber Prado M.D. [id number] MCV (RBC) [Entitic vol] 92.8 fL Normal 80.0-100.0 [facility] Comment on above: Performed By: #### Tasha [id number] ####[facility] [address] [place] [address] Huber Prado M.D. [id number] MEAN CORPUSCULAR HEMOGLOBIN CONC 33.8 g/dL Normal 31.0-37.0 [facility] Comment on above: Performed By: #### Tasha [id number] ####[facility] [address] [place], [place] [address] Huber Prado M.D. [id number] Monocytes (Bld) [#/Vol] 1.49 10*3/uL High 0.30-0.90 [facility] Comment on above: Performed By: #### L [id number] ####[facility] [address] [place], [place] [address] Huber Prado M.D. [id number] Monocytes/100 WBC (Bld) 7.9 % Normal [facility] Comment on above: Performed By: #### L [id number] ####[facility] [address] [place] [address] Huber Prado M.D. [id number] NEUTROPHILS ABSOLUTE COUNT 14.47 K/mcL High 1.70-7.00 [facility] Comment on above: Performed By: #### L [id number] ####[facility] [address] [place] [address] Huber Prado M.D. [id number] Neutrophils/100 WBC (Bld) 76.2 % Normal [facility] Comment on above: Performed By: #### L [id number] ####[facility] [address] [place], [place] [address] Huber Prado M.D. [id number] Platelet mean volume (Bld) [Entitic vol] 10.9 fL Normal 9.4-12.4 [facility] Comment on above: Performed By: #### L [id number] ####[facility] [address] [place], [place] [address] Huber Prado M.D. [id number] Platelets (Bld) [#/Vol] 314 10*3/uL Normal 150-400 [facility] Comment on above: Performed By: #### L [id number] ####[facility] [address] [place], [place] [address] Huber Prado M.D. [id number] RBC (Bld) [#/Vol] 3.32 10*6/uL Low 4.00-5.[address] [facility] Comment on above: Performed By: #### L [id number] ####[facility] [address] [place] [address] Huber Prado M.D. [id number] WBC (Bld) [#/Vol] 18.97 10*3/uL High 4.50-11.00 [facility] Comment on above: Performed By: #### L [id number] ####[facility] [address] [place] [address] Huber Prado M.D. [id number] CONSULTon 05-03-2024 CONSULT Normal [facility] HEPATIC FUNCTION PANELon Albumin [Mass/Vol] 3.4 g/dL Normal 3.2-5.2 [facility] Comment on above: Performed By: #### 4 5866 ####[facility] [address] [place] [address] Huber Prado M.D. [id number] ALP [Catalytic activity/Vol] 219 U/L High 40-140 [facility] Comment on above: Performed By: #### 4 5866 ####[facility] [address] [place] [address] Huber Prado M.D. [id number] ALT [Catalytic activity/Vol] 47 U/L High 0-35 U/L [facility] Comment on above: Performed By: #### 4 5866 ####[facility] [address] [place] [address] Huber Prado M.D. [id number] AST [Catalytic activity/Vol] 26 U/L Normal 0-35 U/L [facility] Comment on above: Performed By: #### 4 5866 ####[facility] [address] [place], [place] [address] Huber Prado M.D. [id number] Bilirubin [Mass/Vol] 0.2 mg/dL Normal 0.0-1.3 [facility] Comment on above: Performed By: #### 4 5866 ####[facility] [address] [place], [place] [address] Huber Prado M.D. [id number] Bilirubin.indirect [Mass/Vol] 0.9 mg/dL High 0.0-0.4 [facility] Comment on above: Performed By: #### 4 5807 ####[facility] [address] [place] [address] Huber Prado M.D. [id number] Protein [Mass/Vol] 6.7 g/dL Normal 6.0-8.0 [facility] Comment on above: Performed By: #### 4 5866 ####[facility] [address] [place] [address] Huber Prado M.D. [id number] LIPASEon 05-03-2024 Lipase [Catalytic activity/Vol] 154 U/L High 15-65 [facility] Comment on above: Performed By: #### 4 6086 ####[facility] [address] [place], [place] [address] Huber Prado M.D. [id number] MRSA DNA AMPLIFIED PROBEon 0 05-03-2024 MRSA DNA AMPLIFIED PROBE Not detected Normal Not Detected, MRSA NEGATIVE [facility] Comment on above: Performed By: #### 4 8061 ####[facility] [address] [place] [address] Huber Prado M.D. [id number] [facility] Glucose [Mass/Vol] 121 mg/dL High 65-99 [facility] Comment on above: Performed By: #### 4 6953 ####[facility] [address] [place] [address] [id number] [facility] Glucose [Mass/Vol] 128 mg/dL High 65-99 [facility] Comment on above: Performed By: #### 4 6522 ####[facility] [address] [place] [address] [id number] [facility] Glucose [Mass/Vol] 136 mg/dL [facility] 65-99 [facility] Comment on above: Performed By: #### 4 3001 ####[facility] [address] [place] [address] [id number] [facility] Glucose [Mass/Vol] 137 mg/dL [facility] 65-99 [facility] Comment on above: Performed By: #### 4 6932 ####[facility] [address] [place] [address] [id number] [facility] Glucose [Mass/Vol] 145 mg/dL [address] Comment on above: Performed By: #### 4 6932 ####[facility] [address] [place] [address] [id number] [facility] Glucose [Mass/Vol] 153 mg/dL [address] Comment on above: Performed By: #### 4 6932 ####[facility] [address] [place] [address] [id number] [facility] Glucose [Mass/Vol] 141 mg/dL [address] Comment on above: Performed By: #### 4 6932 ####[facility] [address] [place] [address] [id number] [facility] Glucose [Mass/Vol] 149 mg/dL [address] Comment on above: Performed By: #### 4 6932 ####[facility] [address] [place] [address] [id number] [facility] POTASSIUM LEVELon 05-03-2024 Potassium [Moles/Vol] 4.5 mmol/L Normal 3.5-5.1 [facility] Comment on above: Result Comment: Slig htly Hemolyzed Performed By: #### 4 6351 ####[facility] [address] [place] [address] Huber Prado M.D. [id number] SPUTUM AEROBIC CULTUREon SPUTUM AEROBIC CULTURE RESPIRATORY CULTU RE Normal Fang after 48 hrs GRAM STAIN RESULT Many WBC Rare Epithelial Cells No Organisms Seen Normal [facility] Comment on above: Performed By: #### 4 4046 ####[facility] [address] [place] [address] Huber Prado M.D. [id number] URINALYSISon 05-03-2024 BACTERIA, URINE Rare Abnormal None Seen [facility] Comment on above: Order Comment: Micro scopic examination is performed on all urinalysis samples and only positive findings are reported. The test for blood on the chemical analytic portion of urinalysis may also be positive due to hemoglobinuria and myoglobinuria and if red blood cells are present they are quantified by microscopic examination. Performed By: #### 4 6625 ####[facility] [address] [place] [address] Huber Prado M.D. [id number] BILIRUBIN, URINE Negative Normal Negative [facility] Comment on above: Order Comment: Micro scopic examination is performed on all urinalysis samples and only positive findings are reported. The test for blood on the chemical analytic portion of urinalysis may also be positive due to hemoglobinuria and myoglobinuria and if red blood cells are present they are quantified by microscopic examination. Performed By: #### 4 6625 ####[facility] [address] [place] [address] Huber Prado M.D. [id number] BLOOD, URINE Small Abnormal Negative [facility] Comment on above: Order Comment: Micro scopic examination is performed on all urinalysis samples and only positive findings are reported. The test for blood on the chemical analytic portion of urinalysis may also be positive due to hemoglobinuria and myoglobinuria and if red blood cells are present they are quantified by microscopic examination. Performed By: #### 4 6625 ####[facility] [address] [place] [address] Huber Prado M.D. [id number] BUDDING YEAST, URINE Many Abnormal None Seen [facility] Comment on above: Order Comment: Micro scopic examination is performed on all urinalysis samples and only positive findings are reported. The test for blood on the chemical analytic portion of urinalysis may also be positive due to hemoglobinuria and myoglobinuria and if red blood cells are present they are quantified by microscopic examination. Result Comment: Resu lts checked. Performed By: #### 4 6625 ####[facility] [address] [place], [place] [address] Huber Prado M.D. [id number] Clarity (U) Clear Normal Clear [facility] Comment on above: Order Comment: Micro scopic examination is performed on all urinalysis samples and only positive findings are reported. The test for blood on the chemical analytic portion of urinalysis may also be positive due to hemoglobinuria and myoglobinuria and if red blood cells are present they are quantified by microscopic examination. Performed By: #### 4 6625 ####[facility] [address] [place], [place] [address] Huber Prado M.D. [id number] Color (U) Yellow Normal Colorless, Yellow [facility] Comment on above: Order Comment: Micro scopic examination is performed on all urinalysis samples and only positive findings are reported. The test for blood on the chemical analytic portion of urinalysis may also be positive due to hemoglobinuria and myoglobinuria and if red blood cells are present they are quantified by microscopic examination. Performed By: #### 4 6625 ####[facility] [address] [place], [place] [address] Huber Prado M.D. [id number] Glucose Ql (U) Negative Normal Negative [facility] Comment on above: Order Comment: Micro scopic examination is performed on all urinalysis samples and only positive findings are reported. The test for blood on the chemical analytic portion of urinalysis may also be positive due to hemoglobinuria and myoglobinuria and if red blood cells are present they are quantified by microscopic examination. Performed By: #### 4 6625 ####[facility] [address] [place] [address] Huber Prado M.D. [id number] Ketones Ql (U) Negative Normal Negative [facility] Comment on above: Order Comment: Micro scopic examination is performed on all urinalysis samples and only positive findings are reported. The test for blood on the chemical analytic portion of urinalysis may also be positive due to hemoglobinuria and myoglobinuria and if red blood cells are present they are quantified by microscopic examination. Performed By: #### 4 6625 ####[facility] [address] [place], [place] [address] Huber Prado M.D. [id number] Leukocyte esterase Test strip Ql (U) Moderate Abnormal Negative [facility] Comment on above: Order Comment: Micro scopic examination is performed on all urinalysis samples and only positive findings are reported. The test for blood on the chemical analytic portion of urinalysis may also be positive due to hemoglobinuria and myoglobinuria and if red blood cells are present they are quantified by microscopic examination. Performed By: #### 4 6625 ####[facility] [address] [place] [address] Huber Prado M.D. [id number] MUCUS, URINE Rare Normal None Seen, Rare [facility] Comment on above: Order Comment: Micro scopic examination is performed on all urinalysis samples and only positive findings are reported. The test for blood on the chemical analytic portion of urinalysis may also be positive due to hemoglobinuria and myoglobinuria and if red blood cells are present they are quantified by microscopic examination. Performed By: #### 4 6625 ####[facility] [address] [place] [address] Huber Prado M.D. [id number] NITRITE, URINE Negative Normal Negative [facility] Comment on above: Order Comment: Micro scopic examination is performed on all urinalysis samples and only positive findings are reported. The test for blood on the chemical analytic portion of urinalysis may also be positive due to hemoglobinuria and myoglobinuria and if red blood cells are present they are quantified by microscopic examination. Performed By: #### 4 6625 ####[facility] [address] [place], [place] [address] Huber Prado M.D. [id number] pH (U) 7.0 [pH] Normal 5.0-7.0 [facility] Comment on above: Order Comment: Micro scopic examination is performed on all urinalysis samples and only positive findings are reported. The test for blood on the chemical analytic portion of urinalysis may also be positive due to hemoglobinuria and myoglobinuria and if red blood cells are present they are quantified by microscopic examination. Performed By: #### 4 6625 ####[facility] [address] [place] [address] Huber Prado M.D. [id number] Protein (U) [Mass/Vol] 30 mg/dL Abnormal Negative [facility] Comment on above: Order Comment: Micro scopic examination is performed on all urinalysis samples and only positive findings are reported. The test for blood on the chemical analytic portion of urinalysis may also be positive due to hemoglobinuria and myoglobinuria and if red blood cells are present they are quantified by microscopic examination. Result Comment: Fals e positive results may occur in urines with large amounts of hemoglobin, pH greater than 8.0, contrast medium, or disinfectants including ammonium compounds. Performed By: #### 4 6625 ####[facility] [address] [place] [address] 119[address] Huber Prado M.D. [id number] RBC LM.HPF (Urine sed) [#/Area] 3 /[HPF] Normal 0-3 [facility] Comment on above: Order Comment: Micro scopic examination is performed on all urinalysis samples and only positive findings are reported. The test for blood on the chemical analytic portion of urinalysis may also be positive due to hemoglobinuria and myoglobinuria and if red blood cells are present they are quantified by microscopic examination. Performed By: #### 4 6625 ####[facility] [address] [place] [address] Huber Prado M.D. [id number] Specific gravity (U) [Rel density] 1.013 Normal 1.005-1.025 [facility] Comment on above: Order Comment: Micro scopic examination is performed on all urinalysis samples and only positive findings are reported. The test for blood on the chemical analytic portion of urinalysis may also be positive due to hemoglobinuria and myoglobinuria and if red blood cells are present they are quantified by microscopic examination. Performed By: #### 4 6625 ####[facility] [address] [place] [address] Huber Prado M.D. [id number] SQUAMOUS EPITHELIAL 2 /hpf Normal 0-[address] [facility] Comment on above: Order Comment: Micro scopic examination is performed on all urinalysis samples and only positive findings are reported. The test for blood on the chemical analytic portion of urinalysis may also be positive due to hemoglobinuria and myoglobinuria and if red blood cells are present they are quantified by microscopic examination. Performed By: #### 4 6625 ####[facility] [address] [place] [address] Huber Prado M.D. [id number] TRANSITIONAL EPITHELIAL 2 /hpf High 0-1 [facility] Comment on above: Order Comment: Micro scopic examination is performed on all urinalysis samples and only positive findings are reported. The test for blood on the chemical analytic portion of urinalysis may also be positive due to hemoglobinuria and myoglobinuria and if red blood cells are present they are quantified by microscopic examination. Result Comment: Resu lts checked. Performed By: #### 4 6625 ####[facility] [address] [place] [address] Huber Prado M.D. [id number] UROBILINOGEN, URINE <2.0 Normal <2.[address] [facility] Comment on above: Order Comment: Micro scopic examination is performed on all urinalysis samples and only positive findings are reported. The test for blood on the chemical analytic portion of urinalysis may also be positive due to hemoglobinuria and myoglobinuria and if red blood cells are present they are quantified by microscopic examination. Performed By: #### 4 6625 ####[facility] [address] [place] [address] Huber Prado M.D. [id number] WBC CLUMPS, URINE Rare Abnormal None Seen [facility] Comment on above: Order Comment: Micro scopic examination is performed on all urinalysis samples and only positive findings are reported. The test for blood on the chemical analytic portion of urinalysis may also be positive due to hemoglobinuria and myoglobinuria and if red blood cells are present they are quantified by microscopic examination. Performed By: #### 4 6625 ####[facility] [address] [place] [address] Huber Prado M.D. [id number] WBC LM.HPF (Urine sed) [#/Area] 8 /[HPF] High 0-5 [facility] Comment on above: Order Comment: Micro scopic examination is performed on all urinalysis samples and only positive findings are reported. The test for blood on the chemical analytic portion of urinalysis may also be positive due to hemoglobinuria and myoglobinuria and if red blood cells are present they are quantified by microscopic examination. Performed By: #### 4 6625 ####[facility] [address] [place] [address] Huber Prado M.D. [id number] URINE AEROBIC CULTUREon 09-0 URINE AEROBIC CULTURE URINE CULTURE No Growth (<1,000 CFU/mL) Normal [facility] Comment on above: Performed By: #### 4 [id number] ####[facility] [address] [place] [address] Huber Prado M.D. [id number] US DUPLEX VENOUS LEGS BILATE RALon 05-03-2024 US DUPLEX VENOUS LEGS BILATERAL Normal [facility] VANCOMYCIN LEVEL, RANDOMon 0 05-03-2024 VANCOMYCIN RANDOM < Normal [facility] Comment on above: Order Comment: As of 05/2022 vancomycin dosing for [facility] inpatients will be done by Bayesian dosing software rather than off traditional trough values. Please contact the site specific inpatient pharmacy before making dose changes off of trough values alone for admitted patients.No established reference range. Performed By: #### 4 [id number] ####[facility] [address] [place], [place] [address] Huber Prado M.D. [id number] POC GLUCOSE - [facility] 024 Glucose [Mass/Vol] 108 mg/dL High 65-[address] [place] [address] Comment on above: Performed By: #### 4 6932 ####[facility] [address] [place] [address] [id number] [facility] Glucose [Mass/Vol] 132 mg/dL High 65-[address] [place] [address] Comment on above: Performed By: #### 4 6932 ####[facility] [address] [place] [address] [id number] [facility] Glucose [Mass/Vol] 94 mg/dL Normal 65- [facility] Comment on above: Performed By: #### 4 6958 ####[facility] [address] [place] [address] [id number] RM[facility] Glucose [Mass/Vol] 133 mg/dL High 65 [facility] Comment on above: Performed By: #### 4 6932 ####[facility] [address] [place] [address] [id number] RM[facility]OC Glucose [Mass/Vol] 152 mg/dL High [address] [place] [address] Comment on above: Performed By: #### 4 6932 ####[facility] [address] [place] [address] [id number] RM[facility] Glucose [Mass/Vol] 150 mg/dL High 65- [facility] Comment on above: Performed By: #### 4 6944 ####[facility] [address] [place] [address] [id number] [facility] BASIC METABOLIC PANELon Anion gap [Moles/Vol] 19 mmol/L Normal 10-20 [facility] Comment on above: Order Comment: [facility] Services has implemented the eGFR calculation approach that does not have a coefficient for race that conforms to the NKF-ASN Task Force Recommendations. Performed By: #### 4 6159 ####[facility] [address] [place] [address] Huber Prado M.D. [id number] Calcium [Mass/Vol] 7.9 mg/dL Low 8.4-10.2 [facility] Comment on above: Order Comment: [facility] Services has implemented the eGFR calculation approach that does not have a coefficient for race that conforms to the NKF-ASN Task Force Recommendations. Performed By: #### 4 6124 ####[facility] [address] [place] [address] Huber Prado M.D. [id number] Chloride [Moles/Vol] 101 mmol/L Normal 98-108 [facility] Comment on above: Order Comment: [facility] Services has implemented the eGFR calculation approach that does not have a coefficient for race that conforms to the NKF-ASN Task Force Recommendations. Performed By: #### 4 6124 ####[facility] [address] [place] [address] Huber Prado M.D. [id number] Creatinine [Mass/Vol] 1.78 mg/dL High 0.40-1.10 [facility] Comment on above: Order Comment: [facility] has implemented the eGFR calculation approach that does not have a coefficient for race that conforms to the NKF-ASN Task Force Recommendations. Performed By: #### 4 6124 ####[facility] [address] [place] [address] Huber Prado M.D. [id number] EGFR 38 mL/min/1.73 m2 Low >=60 [facility] Comment on above: Order Comment: [facility] has implemented the eGFR calculation approach that does not have a coefficient for race that conforms to the NKF-ASN Task Force Recommendations. Result Comment: Neema mated GFR was calculated using the 2020 CKD-EPI creatinine equation. Performed By: #### 4 6124 ####[facility] [address] [place] [address] Huber Prado M.D. [id number] Glucose [Mass/Vol] 151 mg/dL High 65-99 [facility] Comment on above: Order Comment: [facility] has implemented the eGFR calculation approach that does not have a coefficient for race that conforms to the NKF-ASN Task Force Recommendations. Performed By: #### 4 6124 ####[facility] [address] [place] [address] Huber Prado M.D. [id number] HCO3 (Bld) [Moles/Vol] 28 mmol/L Normal 21-32 [facility] Comment on above: Order Comment: [facility] has implemented the eGFR calculation approach that does not have a coefficient for race that conforms to the NKF-ASN Task Force Recommendations. Performed By: #### 4 6124 ####[facility] [address] [place], [place] [address] Huber Prado M.D. [id number] Potassium [Moles/Vol] 4.4 mmol/L Normal 3.5-5.1 [facility] Comment on above: Order Comment: [facility] Services has implemented the eGFR calculation approach that does not have a coefficient for race that conforms to the NKF-ASN Task Force Recommendations. Performed By: #### 4 6124 ####[facility] [address] [place] [address] Huber Prado M.D. [id number] Sodium [Moles/Vol] 144 mmol/L Normal 135-145 [facility] Comment on above: Order Comment: [facility] has implemented the eGFR calculation approach that does not have a coefficient for race that conforms to the NKF-ASN Task Force Recommendations. Performed By: #### 4 6124 ####[facility] [address] [place] [address] Huber Prado M.D. [id number] Urea nitrogen [Mass/Vol] 52 mg/dL High 8-25 [facility] Comment on above: Order Comment: [facility] has implemented the eGFR calculation approach that does not have a coefficient for race that conforms to the NKF-ASN Task Force Recommendations. Performed By: #### 4 6124 ####[facility] [address] [place] [address] Huber Prado M.D. [id number] Urea nitrogen/Creatinine [Mass ratio] 29.2 mg/mg High 10.0-20.0 [facility] Comment on above: Order Comment: [facility] has implemented the eGFR calculation approach that does not have a coefficient for race that conforms to the NKF-ASN Task Force Recommendations. Performed By: #### 4 6124 ####[facility] [address] [place], [place] [address] Huber Prado M.D. [id number] Anion gap [Moles/Vol] 24 mmol/L High 10-20 [facility] Comment on above: Order Comment: [facility] has implemented the eGFR calculation approach that does not have a coefficient for race that conforms to the NKF-ASN Task Force Recommendations. Performed By: #### 4 6124 ####[facility] [address] [place] [address] Huber Prado M.D. [id number] Calcium [Mass/Vol] 9.2 mg/dL Normal 8.4-10.2 [facility] Comment on above: Order Comment: [facility] has implemented the eGFR calculation approach that does not have a coefficient for race that conforms to the NKF-ASN Task Force Recommendations. Performed By: #### 4 6124 ####[facility] [address] [place] [address] Huber Prado M.D. [id number] Chloride [Moles/Vol] 100 mmol/L Normal 98-108 [facility] Comment on above: Order Comment: [facility] has implemented the eGFR calculation approach that does not have a coefficient for race that conforms to the NKF-ASN Task Force Recommendations. Performed By: #### 4 6124 ####[facility] [address] [place] [address] Huber Prado M.D. [id number] Creatinine [Mass/Vol] 3.74 mg/dL High 0.40-1.10 [facility] Comment on above: Order Comment: [facility] Services has implemented the eGFR calculation approach that does not have a coefficient for race that conforms to the NKF-ASN Task Force Recommendations. Performed By: #### 4 6124 ####[facility] [address] [place], [place] [address] Huber Prado M.D. [id number] EGFR 16 mL/min/1.73 m2 Low >=60 [facility] Comment on above: Order Comment: [facility] has implemented the eGFR calculation approach that does not have a coefficient for race that conforms to the NKF-ASN Task Force Recommendations. Result Comment: Neema mated GFR was calculated using the 2020 CKD-EPI creatinine equation. Performed By: #### 4 6124 ####[facility] [address] [place], [place] [address] Huber Prado M.D. [id number] Performed By: #### 4 6449 ####[facility] [address] [place] [address] Huber Prado M.D. [id number] Glucose [Mass/Vol] 202 mg/dL High 65-99 [facility] Comment on above: Order Comment: [facility] Services has implemented the eGFR calculation approach that does not have a coefficient for race that conforms to the NKF-ASN Task Force Recommendations. Performed By: #### 4 6124 ####[facility] [address] [place] [address] Huber Prado M.D. [id number] HCO3 (Bld) [Moles/Vol] 24 mmol/L Normal 21-32 [facility] Comment on above: Order Comment: [facility] Services has implemented the eGFR calculation approach that does not have a coefficient for race that conforms to the NKF-ASN Task Force Recommendations. Performed By: #### 4 6124 ####[facility] [address] [place], [place] [address] Huber Prado M.D. [id number] Potassium [Moles/Vol] 3.5 mmol/L Normal 3.5-5.1 [facility] Comment on above: Order Comment: [facility] Services has implemented the eGFR calculation approach that does not have a coefficient for race that conforms to the NKF-ASN Task Force Recommendations. Result Comment: Lb htmynor Hemolyzed Performed By: #### 4 6124 ####[facility] [address] [place], [place] [address] Huber Prado M.D. [id number] Sodium [Moles/Vol] 144 mmol/L Normal 135-145 [facility] Comment on above: Order Comment: [facility] has implemented the eGFR calculation approach that does not have a coefficient for race that conforms to the NKF-ASN Task Force Recommendations. Performed By: #### 4 6124 ####[facility] [address] [place], [place] [address] Huber Prado M.D. [id number] Urea nitrogen [Mass/Vol] 102 mg/dL Off scale high 8-25 [facility] Comment on above: Order Comment: [facility] has implemented the eGFR calculation approach that does not have a coefficient for race that conforms to the NKF-ASN Task Force Recommendations. Performed By: #### 4 6124 ####[facility] [address] [place] [address] Huber Prado M.D. [id number] Urea nitrogen/Creatinine [Mass ratio] 27.3 mg/mg High 10.0-20.0 [facility] Comment on above: Order Comment: [facility] Services has implemented the eGFR calculation approach that does not have a coefficient for race that conforms to the NKF-ASN Task Force Recommendations. Performed By: #### 4 6124 ####[facility] [address] [place] [address] Huber Prado M.D. [id number] CBC WITH AUTO DIFFERENTIALon 05-01-2024 AUTO NRBC 0.0 % Normal [facility] Comment on above: Performed By: #### L [id number] ####[facility] [address] [place] [address] Huber Prado M.D. [id number] AUTO NRBC ABS COUNT 0.00 K/mcL Normal 0.00-0.[address] [facility] Comment on above: Performed By: #### L [id number] ####[facility] [address] [place] [address] Huber Prado M.D. [id number] BASOPHILS ABSOLUTE COUNT 0.13 K/mcL Normal 0.00-0.30 [facility] Comment on above: Performed By: #### L [id number] ####[facility] [address] [place] [address] Huber Prado M.D. [id number] Basophils/100 WBC (Bld) 0.7 % [facility] Comment on above: Performed By: #### L [id number] ####[facility] [address] [place] [address] Huber Prado M.D. [id number] Eosinophils (Bld) [#/Vol] 0.28 10*3/uL Normal 0.00-0.50 [facility] Comment on above: Performed By: #### L [id number] ####[facility] [address] [place] [address] Huber Prado M.D. [id number] Eosinophils/100 WBC (Bld) 1.5 % Normal [facility] Comment on above: Performed By: #### L [id number] ####[facility] [address] [place] [address] Huber Prado M.D. [id number] Erythrocyte distribution width (RBC) [Ratio] 15.2 % High 11.6-14.8 [facility] Comment on above: Performed By: #### L [id number] ####[facility] [address] [place] [address] Huber Prado M.D. [id number] Hematocrit (Bld) [Volume fraction] 32.5 % Low 36.0-46.0 [facility] Comment on above: Performed By: #### L [id number] ####[facility] [address] [place] [address] Huber Prado M.D. [id number] Hemoglobin (Bld) [Mass/Vol] 10.5 g/dL Low 12.0-16.0 [facility] Comment on above: Performed By: #### L [id number] ####[facility] [address] [place] [address] Huber Prado M.D. [id number] IG ABSOLUTE 0.64 K/mcL High 0.00-0.30 [facility] Comment on above: Performed By: #### L [id number] ####[facility] [address] [place] [address] Huber Prado M.D. [id number] IG PERCENT 3.40 % Normal [facility] Comment on above: Result Comment: The IG parameter is the percentage of metamyelocytes, myelocytes and promyelocytes. An immature granulocyte count (IG) of 1% or more suggests the possibility of infection, an IG count of 3% is very likely related to an infection. Performed By: #### L [id number] ####[facility] [address] [place] [address] Huber Prado M.D. [id number] Lymphocytes (Bld) [#/Vol] 1.57 10*3/uL Normal 0.90-4.00 [facility] Comment on above: Performed By: #### Tasha [id number] ####[facility] [address] [place] [address] Huber Prado M.D. [id number] Lymphocytes/100 WBC (Bld) 8.3 % Normal [facility] Comment on above: Performed By: #### Tasha [id number] ####[facility] [address] [place] [address] Huber Prado M.D. [id number] MCH (RBC) [Entitic mass] 30.3 pg Normal 26.0-34.0 [facility] Comment on above: Performed By: #### Tasha [id number] ####[facility] [address] [place] [address] Huber Prado M.D. [id number] MCV (RBC) [Entitic vol] 93.9 fL Normal 80.0-100.0 [facility] Comment on above: Performed By: #### Tasha [id number] ####[facility] [address] [place] [address] Huber Prado M.D. [id number] MEAN CORPUSCULAR HEMOGLOBIN CONC 32.3 g/dL Normal 31.0-37.0 [facility] Comment on above: Performed By: #### Tasha [id number] ####[facility] [address] [place] [address] Huber Prado M.D. [id number] Monocytes (Bld) [#/Vol] 2.37 10*3/uL High 0.30-0.90 [facility] Comment on above: Performed By: #### Tasha [id number] ####[facility] [address] [place] [address] Huber Prado M.D. [id number] Monocytes/100 WBC (Bld) 12.5 % Normal [facility] Comment on above: Performed By: #### L [id number] ####[facility] [address] [place], [place] [address] Huber Prado M.D. [id number] NEUTROPHILS ABSOLUTE COUNT 14.00 K/mcL High 1.70-7.00 [facility] Comment on above: Performed By: #### L [id number] ####[facility] [address] [place] [address] Huber Prado M.D. [id number] Neutrophils/100 WBC (Bld) 73.6 % Normal [facility] Comment on above: Performed By: #### L [id number] ####[facility] [address] [place], [place] [address] Huber Prado M.D. [id number] Platelet mean volume (Bld) [Entitic vol] 11.1 fL Normal 9.4-12.4 [facility] Comment on above: Performed By: #### L [id number] ####[facility] [address] [place], [place] [address] Huber Prado M.D. [id number] Platelets (Bld) [#/Vol] 312 10*3/uL Normal 150-400 [facility] Comment on above: Performed By: #### L [id number] ####[facility] [address] [place], [place] [address] Huber Prado M.D. [id number] RBC (Bld) [#/Vol] 3.46 10*6/uL Low 4.00-5.[address] [facility] Comment on above: Performed By: #### L [id number] ####[facility] [address] [place], [place] [address] Huber Prado M.D. [id number] WBC (Bld) [#/Vol] 18.99 10*3/uL High 4.50-11.00 [facility] Comment on above: Performed By: #### L [id number] ####[facility] [address] [place] [address] Huber Prado M.D. [id number] AUTO NRBC 0.0 % Normal [facility] Comment on above: Performed By: #### Tasha [id number] ####[facility] [address] [place] [address] Huber Prado M.D. [id number] AUTO NRBC ABS COUNT 0.00 K/mcL Normal 0.00-0.[address] [facility] Comment on above: Performed By: #### Tasha [id number] ####[facility] [address] [place] [address] Huber Prado M.D. [id number] BASOPHILS ABSOLUTE COUNT 0.09 K/mcL Normal 0.00-0.30 [facility] Comment on above: Performed By: #### Tasha [id number] ####[facility] [address] [place] [address] Huber Prado M.D. [id number] Basophils/100 WBC (Bld) 0.6 % [facility] Comment on above: Performed By: #### Tasha [id number] ####[facility] [address] [place] [address] Huber Prado M.D. [id number] Eosinophils (Bld) [#/Vol] 0.03 10*3/uL Normal 0.00-0.50 [facility] Comment on above: Performed By: #### Tasha [id number] ####[facility] [address] [place] [address] Huber Prado M.D. [id number] Eosinophils/100 WBC (Bld) 0.2 % Normal [facility] Comment on above: Performed By: #### L [id number] ####[facility] [address] [place], [place] [address] Huber Prado M.D. [id number] Erythrocyte distribution width (RBC) [Ratio] 14.9 % High 11.6-14.8 [facility] Comment on above: Performed By: #### L [id number] ####[facility] [address] [place] [address] Huber Prado M.D. [id number] Hematocrit (Bld) [Volume fraction] 29.8 % Low 36.0-46.0 [facility] Comment on above: Performed By: #### L [id number] ####[facility] [address] [place] [address] Huber Prado M.D. [id number] Hemoglobin (Bld) [Mass/Vol] 9.6 g/dL Low 12.0-16.0 [facility] Comment on above: Performed By: #### L [id number] ####[facility] [address] [place] [address] Huber Prado M.D. [id number] IG ABSOLUTE 0.46 K/mcL High 0.00-0.30 [facility] Comment on above: Performed By: #### L [id number] ####[facility] [address] [place] [address] Huber Prado M.D. [id number] IG PERCENT 3.10 % Normal [facility] Comment on above: Result Comment: The IG parameter is the percentage of metamyelocytes, myelocytes and promyelocytes. An immature granulocyte count (IG) of 1% or more suggests the possibility of infection, an IG count of 3% is very likely related to an infection. Performed By: #### L [id number] ####[facility] [address] [place] [address] Huber Prado M.D. [id number] Lymphocytes (Bld) [#/Vol] 1.13 10*3/uL Normal 0.90-4.00 [facility] Comment on above: Performed By: #### L [id number] ####[facility] [address] [place] [address] Huber Prado M.D. [id number] Lymphocytes/100 WBC (Bld) 7.7 % Normal [facility] Comment on above: Performed By: #### Tasha [id number] ####[facility] [address] [place] [address] Huber Prado M.D. [id number] MCH (RBC) [Entitic mass] 29.6 pg Normal 26.0-34.0 [facility] Comment on above: Performed By: #### Tasha [id number] ####[facility] [address] [place] [address] Huber Prado M.D. [id number] MCV (RBC) [Entitic vol] 92.0 fL Normal 80.0-100.0 [facility] Comment on above: Performed By: #### Tasha [id number] ####[facility] [address] [place] [address] Huber Prado M.D. [id number] MEAN CORPUSCULAR HEMOGLOBIN CONC 32.2 g/dL Normal 31.0-37.0 [facility] Comment on above: Performed By: #### Tasha [id number] ####[facility] [address] [place], [place] [address] Huber Prado M.D. [id number] Monocytes (Bld) [#/Vol] 0.90 10*3/uL Normal 0.30-0.90 [facility] Comment on above: Performed By: #### Tasha [id number] ####[facility] [address] [place], [place] [address] Huber Prado M.D. [id number] Monocytes/100 WBC (Bld) 6.1 % Normal [facility] Comment on above: Performed By: #### L [id number] ####[facility] [address] [place], [place] [address] Huber Prado M.D. [id number] NEUTROPHILS ABSOLUTE COUNT 12.12 K/mcL High 1.70-7.00 [facility] Comment on above: Performed By: #### L [id number] ####[facility] [address] [place] [address] Huber Prado M.D. [id number] Neutrophils/100 WBC (Bld) 82.3 % Normal [facility] Comment on above: Performed By: #### L [id number] ####[facility] [address] [place], [place] [address] Huber Prado M.D. [id number] Platelet mean volume (Bld) [Entitic vol] 11.5 fL Normal 9.4-12.4 [facility] Comment on above: Performed By: #### L [id number] ####[facility] [address] [place], [place] [address] Huber Prado M.D. [id number] Platelets (Bld) [#/Vol] 299 10*3/uL Normal 150-400 [facility] Comment on above: Performed By: #### L [id number] ####[facility] [address] [place], [place] [address] Huber Prado M.D. [id number] RBC (Bld) [#/Vol] 3.24 10*6/uL Low 4.00-5.[address] [facility] Comment on above: Performed By: #### L [id number] ####[facility] [address] [place] [address] Huber Prado M.D. [id number] WBC (Bld) [#/Vol] 14.73 10*3/uL High 4.50-11.00 [facility] Comment on above: Performed By: #### L [id number] ####[facility] [address] [place] [address] Huber Prado M.D. [id number] CV IR DIALYSIS CATHETER INSE RTION NONTUNNELEDon 05-01-2024 CV IR DIALYSIS CATHETER INSERTION NONTUNNELED Normal [facility] HEPATIC FUNCTION PANELon Albumin [Mass/Vol] 2.9 g/dL Low 3.2-5.2 [facility] Comment on above: Performed By: #### 4 5866 ####[facility] [address] [place], [place] [address] Huber Prado M.D. [id number] Order Comment: [facility] Services has implemented the eGFR calculation approach that does not have a coefficient for race that conforms to the NKF-ASN Task Force Recommendations. Performed By: #### 4 6449 ####[facility] [address] [place], [place] [address] Huber Prado M.D. [id number] ALP [Catalytic activity/Vol] 218 U/L High 40-140 [facility] Comment on above: Performed By: #### 4 5866 ####[facility] [address] [place], [place] [address] Huber Prado M.D. [id number] ALT [Catalytic activity/Vol] 62 U/L High 0-35 U/L [facility] Comment on above: Performed By: #### 4 5866 ####[facility] [address] [place], [place] [address] Huber Prado M.D. [id number] AST [Catalytic activity/Vol] 43 U/L High 0-35 U/L [facility] Comment on above: Performed By: #### 4 5866 ####[facility] [address] [place], [place] [address] Huber Prado M.D. [id number] Bilirubin [Mass/Vol] 0.2 mg/dL Normal 0.0-1.3 [facility] Comment on above: Performed By: #### 4 5866 ####[facility] [address] [place] [address] Huber Prado M.D. [id number] BILIRUBIN, DIRECT < Normal 0.0-0.4 [facility] Comment on above: Performed By: #### 4 5866 ####[facility] [address] [place], [place] [address] Huber Prado M.D. [id number] Protein [Mass/Vol] 6.2 g/dL Normal 6.0-8.0 [facility] Comment on above: Performed By: #### 4 5866 ####[facility] [address] [place], [place] [address] Huber Prado M.D. [id number] HEPATITIS B SURFACE ANTIGENo n 05-01-2024 HEPATITIS B SURFACE ANTIGEN Negative Normal Negative [facility] Comment on above: Order Comment: Test performed using [employer] immunoassay system Performed By: #### 4 [id number] ####[facility] [address] [place], [place] [address] Huber Prado M.D. [id number] MAGNESIUM LEVELon 05-01-2024 Magnesium [Mass/Vol] 3.2 mg/dL High 1.6-2.4 [facility] Comment on above: Performed By: #### 4 6109 ####[facility] [address] [place], [place] [address] Huber Prado M.D. [id number] MORPHOLOGYon 05-01-2024 PLATELET ESTIMATE Normal Normal Normal [facility] Comment on above: Performed By: #### L [id number] ####[facility] [address] [place], [place] [address] Huber Prado M.D. [id number] RBC MORPH SCAN Normal Normal [facility] Comment on above: Result Comment: RBC Indices confirmed with manual peripheral smear review. Performed By: #### L [id number] ####[facility] [address] [place] [address] Huber Prado M.D. [id number] POC GLUCOSE - [facility] 024 Glucose [Mass/Vol] 149 mg/dL High [address] [place] [address] Comment on above: Performed By: #### 4 6932 ####[facility] [address] [place] [address] [id number] [facility] Glucose [Mass/Vol] 128 mg/dL [address] Comment on above: Performed By: #### 4 6932 ####[facility] [address] [place] [address] [id number] [facility] Glucose [Mass/Vol] 134 mg/dL [address] Comment on above: Performed By: #### 4 6932 ####[facility] [address] [place] [address] [id number] [facility] Glucose [Mass/Vol] 185 mg/dL [address] Comment on above: Performed By: #### 4 6932 ####[facility] [address] [place] [address] [id number] [facility] Glucose [Mass/Vol] 166 mg/dL [address] Comment on above: Performed By: #### 4 6932 ####[facility] [address] [place] [address] [id number] [facility] Glucose [Mass/Vol] 211 mg/dL [address] Comment on above: Performed By: #### 4 6932 ####[facility] [address] [place] [address] [id number] [facility] POTASSIUM LEVELon 05-01-2024 Potassium [Moles/Vol] 3.3 mmol/L Low 3.5-5.1 [facility] Comment on above: Performed By: #### 4 6351 ####[facility] [address] [place] [address] Huber Prado M.D. [id number] PT/INRon 05-01-2024 INR Coag (PPP) [Relative time] 1.0 {INR} Normal 0.8-1.1 [facility] Comment on above: Order Comment: Sungin g the induction phase of oral anticoagulation, the INR may not reflect the anticoagulation status of the patient. Therapeutic ranges for INR's are:Most clinical situations: INR 2.0-3.0Mechanical Prosthetic Valve: INR 2.5-3.5Critical: INR >5.0 Performed By: #### 4 6391 ####[facility] [address] [place] [address] Huber Prado M.D. [id number] PT Coag (PPP) [Time] 12.8 s Normal 11.8-14.3 [facility] Comment on above: Order Comment: Thang g the induction phase of oral anticoagulation, the INR may not reflect the anticoagulation status of the patient. Therapeutic ranges for INR's are:Most clinical situations: INR 2.0-3.0Mechanical Prosthetic Valve: INR 2.5-3.5Critical: INR >5.0 Performed By: #### 4 6391 ####[facility] [address] [place] [address] Huber Prado M.D. [id number] RENAL FUNCTION PANELon 05-01 Anion gap [Moles/Vol] 27 mmol/L High 10-20 [facility] Comment on above: Order Comment: [facility] Services has implemented the eGFR calculation approach that does not have a coefficient for race that conforms to the NKF-ASN Task Force Recommendations. Performed By: #### 4 6449 ####[facility] [address] [place], [place] [address] Huber Prado M.D. [id number] Calcium [Mass/Vol] 8.7 mg/dL Normal 8.4-10.2 [facility] Comment on above: Order Comment: [facility] Services has implemented the eGFR calculation approach that does not have a coefficient for race that conforms to the NKF-ASN Task Force Recommendations. Performed By: #### 4 6449 ####[facility] [address] [place], [place] [address] Huber Prado M.D. [id number] Chloride [Moles/Vol] 99 mmol/L Normal 98-108 [facility] Comment on above: Order Comment: [facility] Services has implemented the eGFR calculation approach that does not have a coefficient for race that conforms to the NKF-ASN Task Force Recommendations. Performed By: #### 4 6449 ####[facility] [address] [place], [place] [address] Huber Prado M.D. [id number] Creatinine [Mass/Vol] 3.66 mg/dL High 0.40-1.10 [facility] Comment on above: Order Comment: [facility] Services has implemented the eGFR calculation approach that does not have a coefficient for race that conforms to the NKF-ASN Task Force Recommendations. Performed By: #### 4 6449 ####[facility] [address] [place], [place] [address] Huber Prado M.D. [id number] Glucose [Mass/Vol] 197 mg/dL High 65-99 [facility] Comment on above: Order Comment: [facility] Services has implemented the eGFR calculation approach that does not have a coefficient for race that conforms to the NKF-ASN Task Force Recommendations. Performed By: #### 4 6449 ####[facility] [address] [place], [place] [address] Huber Prado M.D. [id number] HCO3 (Bld) [Moles/Vol] 23 mmol/L Normal 21-32 [facility] Comment on above: Order Comment: [facility] Laboratory [facility] has implemented the eGFR calculation approach that does not have a coefficient for race that conforms to the NKF-ASN Task Force Recommendations. Performed By: #### 4 6449 ####[facility] [address] [place], [place] [address] Huber Prado M.D. [id number] Phosphate [Mass/Vol] 4.1 mg/dL Normal 2.7-4.5 [facility] Comment on above: Order Comment: [facility] has implemented the eGFR calculation approach that does not have a coefficient for race that conforms to the NKF-ASN Task Force Recommendations. Performed By: #### 4 6449 ####[facility] [address] [place], [place] [address] Huber Prado M.D. [id number] Potassium [Moles/Vol] 3.6 mmol/L Normal 3.5-5.1 [facility] Comment on above: Order Comment: [facility] has implemented the eGFR calculation approach that does not have a coefficient for race that conforms to the NKF-ASN Task Force Recommendations. Performed By: #### 4 6449 ####[facility] [address] [place], [place] [address] Huber Prado M.D. [id number] Sodium [Moles/Vol] 145 mmol/L Normal 135-145 [facility] Comment on above: Order Comment: [facility] has implemented the eGFR calculation approach that does not have a coefficient for race that conforms to the NKF-ASN Task Force Recommendations. Performed By: #### 4 6449 ####[facility] [address] [place] [address] Huber Prado M.D. [id number] Urea nitrogen [Mass/Vol] 111 mg/dL Off scale high 8-25 [facility] Comment on above: Order Comment: [facility] has implemented the eGFR calculation approach that does not have a coefficient for race that conforms to the NKF-ASN Task Force Recommendations. Performed By: #### 4 6449 ####[facility] [address] [place] [address] 89543 Huber Prado M.D. [id number] Urea nitrogen/Creatinine [Mass ratio] 30.3 mg/mg High 10.0-20.0 [facility] Comment on above: Order Comment: [facility] Services has implemented the eGFR calculation approach that does not have a coefficient for race that conforms to the NKF-ASN Task Force Recommendations. Performed By: #### 4 6449 ####[facility] [address] [place], [place] [address] Huber Prado M.D. [id number] T4, FREEon 05-01-2024 Free T4 [Mass/Vol] 0.6 ng/dL Low 0.7-1.7 [facility] Comment on above: Performed By: #### 4 6567 ####[facility] [address] [place], [place] [address] Huber Prado M.D. [id number] TSHon 05-01-2024 TSH Qn 8.35 m[IU]/L High 0.27-4.20 [facility] Comment on above: Performed By: #### 4 6613 ####[facility] [address] [place] [address] Huber Prado M.D. [id number] BASIC METABOLIC PANELon 09-0 Anion gap [Moles/Vol] 25 mmol/L High 10-20 [facility] Comment on above: Order Comment: [facility] has implemented the eGFR calculation approach that does not have a coefficient for race that conforms to the NKF-ASN Task Force Recommendations. Performed By: #### 4 6124 ####[facility] [address] [place] [address]7860 Huber Prado M.D. [id number] Calcium [Mass/Vol] 9.3 mg/dL Normal 8.4-10.2 [facility] Comment on above: Order Comment: [facility] has implemented the eGFR calculation approach that does not have a coefficient for race that conforms to the NKF-ASN Task Force Recommendations. Performed By: #### 4 6124 ####[facility] [address] [place] [address] Huber Prado M.D. [id number] Chloride [Moles/Vol] 97 mmol/L Low 98-108 [facility] Comment on above: Order Comment: [facility] Services has implemented the eGFR calculation approach that does not have a coefficient for race that conforms to the NKF-ASN Task Force Recommendations. Performed By: #### 4 6124 ####[facility] [address] [place], [place] [address] Huber Prado M.D. [id number] Creatinine [Mass/Vol] 4.12 mg/dL High 0.40-1.10 [facility] Comment on above: Order Comment: [facility] has implemented the eGFR calculation approach that does not have a coefficient for race that conforms to the NKF-ASN Task Force Recommendations. Performed By: #### 4 6124 ####[facility] [address] [place], [place] [address] Huber Prado M.D. [id number] EGFR 14 mL/min/1.73 m2 Low >=60 [facility] Comment on above: Order Comment: [facility] has implemented the eGFR calculation approach that does not have a coefficient for race that conforms to the NKF-ASN Task Force Recommendations. Result Comment: Neema mated GFR was calculated using the 2020 CKD-EPI creatinine equation. Performed By: #### 4 6124 ####[facility] [address] [place] [address]8046 Huber Prado M.D. [id number] Glucose [Mass/Vol] 155 mg/dL High 65-99 [facility] Comment on above: Order Comment: [facility] Services has implemented the eGFR calculation approach that does not have a coefficient for race that conforms to the NKF-ASN Task Force Recommendations. Performed By: #### 4 6124 ####[facility] [address] [place] [address] Huber Prado M.D. [id number] HCO3 (Bld) [Moles/Vol] 26 mmol/L Normal 21-32 [facility] Comment on above: Order Comment: [facility] has implemented the eGFR calculation approach that does not have a coefficient for race that conforms to the NKF-ASN Task Force Recommendations. Performed By: #### 4 6124 ####[facility] [address] [place] [address] 21233 Huber Prado M.D. [id number] Potassium [Moles/Vol] 4.1 mmol/L Normal 3.5-5.1 [facility] Comment on above: Order Comment: [facility] has implemented the eGFR calculation approach that does not have a coefficient for race that conforms to the NKF-ASN Task Force Recommendations. Performed By: #### 4 6124 ####[facility] [address] [place] [address] 90455 Huber Prado M.D. [id number] Sodium [Moles/Vol] 144 mmol/L Normal 135-145 [facility] Comment on above: Order Comment: [facility] has implemented the eGFR calculation approach that does not have a coefficient for race that conforms to the NKF-ASN Task Force Recommendations. Performed By: #### 4 6124 ####[facility] [address] [place] [address] Huber Prado M.D. [id number] Urea nitrogen [Mass/Vol] 108 mg/dL Off scale high 8-25 [facility] Comment on above: Order Comment: [facility] Services has implemented the eGFR calculation approach that does not have a coefficient for race that conforms to the NKF-ASN Task Force Recommendations. Performed By: #### 4 6124 ####[facility] [address] [place] [address] Huber Prado M.D. [id number] Urea nitrogen/Creatinine [Mass ratio] 26.2 mg/mg High 10.0-20.0 [facility] Comment on above: Order Comment: [facility] Services has implemented the eGFR calculation approach that does not have a coefficient for race that conforms to the NKF-ASN Task Force Recommendations. Performed By: #### 4 6124 ####[facility] [address] [place] [address] Huber Prado M.D. [id number] CBC WITH AUTO DIFFERENTIALon 04-30-2024 AUTO NRBC 0.0 % Normal [facility] Comment on above: Performed By: #### L [id number] ####[facility] [address] [place] [address] Huber Prado M.D. [id number] AUTO NRBC ABS COUNT 0.00 K/mcL Normal 0.00-0.[address] [facility] Comment on above: Performed By: #### L [id number] ####[facility] [address] [place] [address] Huber Prado M.D. [id number] BASOPHILS ABSOLUTE COUNT 0.10 K/mcL Normal 0.00-0.30 [facility] Comment on above: Performed By: #### L [id number] ####[facility] [address] [place], [place] [address] uHber Prado M.D. [id number] Basophils/100 WBC (Bld) 0.7 % Normal [facility] Comment on above: Performed By: #### L [id number] ####[facility] [address] [place], [place] [address] Huber Prado M.D. [id number] Eosinophils (Bld) [#/Vol] 0.03 10*3/uL Normal 0.00-0.50 [facility] Comment on above: Performed By: #### L [id number] ####[facility] [address] [place] [address] Huber Prado M.D. [id number] Eosinophils/100 WBC (Bld) 0.2 % Normal [facility] Comment on above: Performed By: #### L [id number] ####[facility] [address] [place] [address] Huber Prado M.D. [id number] Erythrocyte distribution width (RBC) [Ratio] 14.7 % Normal 11.6-14.8 [facility] Comment on above: Performed By: #### L [id number] ####[facility] [address] [place] [address] Huber Prado M.D. [id number] Hematocrit (Bld) [Volume fraction] 30.6 % Low 36.0-46.0 [facility] Comment on above: Performed By: #### L [id number] ####[facility] [address] [place] [address] Huber Prado M.D. [id number] Hemoglobin (Bld) [Mass/Vol] 9.9 g/dL Low 12.0-16.0 [facility] Comment on above: Performed By: #### L [id number] ####[facility] [address] [place] [address] Huber Prado M.D. [id number] IG ABSOLUTE 0.34 K/mcL High 0.00-0.30 [facility] Comment on above: Performed By: #### L [id number] ####[facility] [address] [place] [address] Huber Prado M.D. [id number] IG PERCENT 2.40 % Normal [facility] Comment on above: Result Comment: The IG parameter is the percentage of metamyelocytes, myelocytes and promyelocytes. An immature granulocyte count (IG) of 1% or more suggests the possibility of infection, an IG count of 3% is very likely related to an infection. Performed By: #### L [id number] ####[facility] [address] [place] [address] Huber Prado M.D. [id number] Lymphocytes (Bld) [#/Vol] 1.14 10*3/uL Normal 0.90-4.00 [facility] Comment on above: Performed By: #### L [id number] ####[facility] [address] [place] [address] Huber Prado M.D. [id number] Lymphocytes/100 WBC (Bld) 8.0 % Normal [facility] Comment on above: Performed By: #### L [id number] ####[facility] [address] [place] [address] Huber Prado M.D. [id number] MCH (RBC) [Entitic mass] 30.0 pg Normal 26.0-34.0 [facility] Comment on above: Performed By: #### L [id number] ####[facility] [address] [place] [address] Huber Prado M.D. [id number] MCV (RBC) [Entitic vol] 92.7 fL Normal 80.0-100.0 [facility] Comment on above: Performed By: #### L [id number] ####[facility] [address] [place] [address] Huber Prado M.D. [id number] MEAN CORPUSCULAR HEMOGLOBIN CONC 32.4 g/dL Normal 31.0-37.0 [facility] Comment on above: Performed By: #### L [id number] ####[facility] [address] [place] [address] Huber Prado M.D. [id number] Monocytes (Bld) [#/Vol] 0.80 10*3/uL Normal 0.30-0.90 [facility] Comment on above: Performed By: #### L [id number] ####[facility] [address] [place], [place] [address] Huber Prado M.D. [id number] Monocytes/100 WBC (Bld) 5.6 % Normal [facility] Comment on above: Performed By: #### Tasha [id number] ####[facility] [address] [place] [address] Huber Prado M.D. [id number] NEUTROPHILS ABSOLUTE COUNT 11.90 K/mcL High 1.70-7.00 [facility] Comment on above: Performed By: #### Tasha [id number] ####[facility] [address] [place] [address] Huber Prado M.D. [id number] Neutrophils/100 WBC (Bld) 83.1 % Normal [facility] Comment on above: Performed By: #### Tasha [id number] ####[facility] [address] [place] [address] Huber Prado M.D. [id number] Platelet mean volume (Bld) [Entitic vol] 10.8 fL Normal 9.4-12.4 [facility] Comment on above: Performed By: #### L [id number] ####[facility] [address] [place], [place] [address] Huber Prado M.D. [id number] Platelets (Bld) [#/Vol] 277 10*3/uL Normal 150-400 [facility] Comment on above: Performed By: #### L [id number] ####[facility] [address] [place], [place] [address] Huber Prado M.D. [id number] RBC (Bld) [#/Vol] 3.30 10*6/uL Low 4.00-5.[address] [facility] Comment on above: Performed By: #### L [id number] ####[facility] [address] [place] [address] Huber Prado M.D. [id number] WBC (Bld) [#/Vol] 14.31 10*3/uL High 4.50-11.00 [facility] Comment on above: Performed By: #### L [id number] ####[facility] [address] [place] [address] Huber Prado M.D. [id number] CONSULTon 04-30-2024 CONSULT Normal [facility] POC GLUCOSE - [facility] 024 Glucose [Mass/Vol] 168 mg/dL [address] Comment on above: Performed By: #### 4 6932 ####[facility] [address] [place] [address] [id number] [facility] Glucose [Mass/Vol] 180 mg/dL [address] Comment on above: Performed By: #### 4 6932 ####[facility] [address] [place] [address] [id number] [facility] Glucose [Mass/Vol] 174 mg/dL [address] Comment on above: Performed By: #### 4 6901 ####[facility] [address] [place] [address] [id number] [facility] Glucose [Mass/Vol] 135 mg/dL [address] Comment on above: Performed By: #### 4 6963 ####[facility] [address] [place] [address] [id number] [facility] Glucose [Mass/Vol] 182 mg/dL [address] Comment on above: Performed By: #### 4 6915 ####[facility] [address] [place] [address] [id number] [facility] Glucose [Mass/Vol] 173 mg/dL High 65-99 [facility] Comment on above: Performed By: #### 4 6932 ####[facility] [address] [place] [address] [id number] [facility] TRIGLYCERIDESon 04-30-2024 Triglyceride [Mass/Vol] 426 mg/dL High 30-150 [facility] Comment on above: Result Comment: [facility]zma onal Cholesterol Education Program Guidelines: TriglycerideNormal: <150 mg/dLBorderline High: 150-199 mg/dLHigh: 200-499 mg/dLVery High: greater than or equal to 500 mg/dL Performed By: #### 4 6606 ####[facility] [address] [place] [address] Huber Prado M.D. [id number] BASIC METABOLIC PANELon 08-3 Anion gap [Moles/Vol] 24 mmol/L High 10-20 [facility] Comment on above: Order Comment: [facility] Services has implemented the eGFR calculation approach that does not have a coefficient for race that conforms to the NKF-ASN Task Force Recommendations. Performed By: #### 4 6124 ####[facility] [address] [place], [place] [address] Huber Prado M.D. [id number] Calcium [Mass/Vol] 9.3 mg/dL Normal 8.4-10.2 [facility] Comment on above: Order Comment: [facility] Services has implemented the eGFR calculation approach that does not have a coefficient for race that conforms to the NKF-ASN Task Force Recommendations. Performed By: #### 4 6124 ####[facility] [address] [place], [place] [address] Huber Prado M.D. [id number] Chloride [Moles/Vol] 97 mmol/L Low 98-108 [facility] Comment on above: Order Comment: [facility] Services has implemented the eGFR calculation approach that does not have a coefficient for race that conforms to the NKF-ASN Task Force Recommendations. Performed By: #### 4 6124 ####[facility] [address] [place] [address] Huber Prado M.D. [id number] Creatinine [Mass/Vol] 4.22 mg/dL High 0.40-1.10 [facility] Comment on above: Order Comment: [facility] Laboratory [facility] has implemented the eGFR calculation approach that does not have a coefficient for race that conforms to the NKF-ASN Task Force Recommendations. Performed By: #### 4 6124 ####[facility] [address] [place] [address] Huber Prado M.D. [id number] EGFR 13 mL/min/1.73 m2 Low >=60 [facility] Comment on above: Order Comment: [facility] has implemented the eGFR calculation approach that does not have a coefficient for race that conforms to the NKF-ASN Task Force Recommendations. Result Comment: Neema mated GFR was calculated using the 2020 CKD-EPI creatinine equation. Performed By: #### 4 6124 ####[facility] [address] [place] [address] Huber Prado M.D. [id number] Glucose [Mass/Vol] 170 mg/dL High 65-99 [facility] Comment on above: Order Comment: [facility] has implemented the eGFR calculation approach that does not have a coefficient for race that conforms to the NKF-ASN Task Force Recommendations. Performed By: #### 4 6124 ####[facility] [address] [place] [address] Huber Prado M.D. [id number] HCO3 (Bld) [Moles/Vol] 26 mmol/L Normal 21-32 [facility] Comment on above: Order Comment: [facility] Services has implemented the eGFR calculation approach that does not have a coefficient for race that conforms to the NKF-ASN Task Force Recommendations. Performed By: #### 4 6124 ####[facility] [address] [place] [address] Huber Prado M.D. [id number] Potassium [Moles/Vol] 3.8 mmol/L Normal 3.5-5.1 [facility] Comment on above: Order Comment: [facility] Services has implemented the eGFR calculation approach that does not have a coefficient for race that conforms to the NKF-ASN Task Force Recommendations. Performed By: #### 4 6124 ####[facility] [address] [place] [address] Huber Prado M.D. [id number] Sodium [Moles/Vol] 143 mmol/L Normal 135-145 [facility] Comment on above: Order Comment: [facility] Services has implemented the eGFR calculation approach that does not have a coefficient for race that conforms to the NKF-ASN Task Force Recommendations. Performed By: #### 4 6124 ####[facility] [address] [place] [address] Huber Prado M.D. [id number] Urea nitrogen [Mass/Vol] 95 mg/dL High 8-25 [facility] Comment on above: Order Comment: [facility] has implemented the eGFR calculation approach that does not have a coefficient for race that conforms to the NKF-ASN Task Force Recommendations. Performed By: #### 4 6124 ####[facility] [address] [place] [address] Huber Prado M.D. [id number] Urea nitrogen/Creatinine [Mass ratio] 22.5 mg/mg High 10.0-20.0 [facility] Comment on above: Order Comment: [facility] Services has implemented the eGFR calculation approach that does not have a coefficient for race that conforms to the NKF-ASN Task Force Recommendations. Performed By: #### 4 6124 ####[facility] [address] [place] [address] Huber Prado M.D. [id number] CBC WITH AUTO DIFFERENTIALon 04-29-2024 AUTO NRBC 0.0 % Normal [facility] Comment on above: Performed By: #### Tasha [id number] ####[facility] [address] [place] [address] Huber Prado M.D. [id number] AUTO NRBC ABS COUNT 0.00 K/mcL Normal 0.00-0.[address] [facility] Comment on above: Performed By: #### Tasha [id number] ####[facility] [address] [place] [address] Huber Prado M.D. [id number] BASOPHILS ABSOLUTE COUNT 0.09 K/mcL Normal 0.00-0.30 [facility] Comment on above: Performed By: #### Tasha [id number] ####[facility] [address] [place] [address] Huber Prado M.D. [id number] Basophils/100 WBC (Bld) 0.7 % Normal [facility] Comment on above: Performed By: #### Tasha [id number] ####[facility] [address] [place] [address] Huber Prado M.D. [id number] Eosinophils (Bld) [#/Vol] 0.63 10*3/uL High 0.00-0.50 [facility] Comment on above: Performed By: #### L [id number] ####[facility] [address] [place] [address] Huber Prado M.D. [id number] Eosinophils/100 WBC (Bld) 5.2 % Normal [facility] Comment on above: Performed By: #### Tasha [id number] ####[facility] [address] [place] [address] Huber Prado M.D. [id number] Erythrocyte distribution width (RBC) [Ratio] 14.7 % Normal 11.6-14.8 [facility] Comment on above: Performed By: #### L [id number] ####[facility] [address] [place] [address] Huber Prado M.D. [id number] Hematocrit (Bld) [Volume fraction] 30.1 % Low 36.0-46.0 [facility] Comment on above: Performed By: #### L [id number] ####[facility] [address] [place] [address] Huber Prado M.D. [id number] Hemoglobin (Bld) [Mass/Vol] 9.6 g/dL Low 12.0-16.0 [facility] Comment on above: Performed By: #### L [id number] ####[facility] [address] [place] [address] Huber Prado M.D. [id number] IG ABSOLUTE 0.25 K/mcL Normal 0.00-0.30 [facility] Comment on above: Performed By: #### L [id number] ####[facility] [address] [place] [address] Huber Prado M.D. [id number] IG PERCENT 2.10 % Normal [facility] Comment on above: Result Comment: The IG parameter is the percentage of metamyelocytes, myelocytes and promyelocytes. An immature granulocyte count (IG) of 1% or more suggests the possibility of infection, an IG count of 3% is very likely related to an infection. Performed By: #### L [id number] ####[facility] [address] [place] [address] Huber Prado M.D. [id number] Lymphocytes (Bld) [#/Vol] 1.24 10*3/uL Normal 0.90-4.00 [facility] Comment on above: Performed By: #### L [id number] ####[facility] [address] [place] [address] Huber Prado M.D. [id number] Lymphocytes/100 WBC (Bld) 10.3 % Normal [facility] Comment on above: Performed By: #### Tasha [id number] ####[facility] [address] [place] [address] Huber Prado M.D. [id number] MCH (RBC) [Entitic mass] 30.2 pg Normal 26.0-34.0 [facility] Comment on above: Performed By: #### Tasha [id number] ####[facility] [address] [place] [address] Huber Prado M.D. [id number] MCV (RBC) [Entitic vol] 94.7 fL Normal 80.0-100.0 [facility] Comment on above: Performed By: #### Tasha [id number] ####[facility] [address] [place] [address] Huber Prado M.D. [id number] MEAN CORPUSCULAR HEMOGLOBIN CONC 31.9 g/dL Normal 31.0-37.0 [facility] Comment on above: Performed By: #### Tasha [id number] ####[facility] [address] [place], [place] [address] Huber Prado M.D. [id number] Monocytes (Bld) [#/Vol] 1.40 10*3/uL High 0.30-0.90 [facility] Comment on above: Performed By: #### L [id number] ####[facility] [address] [place], [place] [address] Huber Prado M.D. [id number] Monocytes/100 WBC (Bld) 11.6 % Normal [facility] Comment on above: Performed By: #### L [id number] ####[facility] [address] [place] [address] Huber Prado M.D. [id number] NEUTROPHILS ABSOLUTE COUNT 8.44 K/mcL High 1.70-7.00 [facility] Comment on above: Performed By: #### L [id number] ####[facility] [address] [place] [address] Huber Prado M.D. [id number] Neutrophils/100 WBC (Bld) 70.1 % Normal [facility] Comment on above: Performed By: #### L [id number] ####[facility] [address] [place], [place] [address] Huber Prado M.D. [id number] Platelet mean volume (Bld) [Entitic vol] 11.0 fL Normal 9.4-12.4 [facility] Comment on above: Performed By: #### Tasha [id number] ####[facility] [address] [place], [place] [address] Huber Prado M.D. [id number] Platelets (Bld) [#/Vol] 249 10*3/uL Normal 150-400 [facility] Comment on above: Performed By: #### L [id number] ####[facility] [address] [place], [place] [address] Huber Prado M.D. [id number] RBC (Bld) [#/Vol] 3.18 10*6/uL Low 4.00-5.[address] [facility] Comment on above: Performed By: #### L [id number] ####[facility] [address] [place] [address] Huber Prado M.D. [id number] WBC (Bld) [#/Vol] 12.05 10*3/uL High 4.50-11.00 [facility] Comment on above: Performed By: #### L [id number] ####[facility] [address] [address] Huber Prado M.D. [id number] POC GLUCOSE - [facility] 024 Glucose [Mass/Vol] 189 mg/dL [address] Comment on above: Performed By: #### 4 6979 ####[facility] [address] [place] [address] [id number] [facility] Glucose [Mass/Vol] 167 mg/dL [address] Comment on above: Performed By: #### 4 6982 ####[facility] [address] [place] [address] [id number] [facility] Glucose [Mass/Vol] 174 mg/dL [address] Comment on above: Performed By: #### 4 6992 ####[facility] [address] [place] [address] [id number] [facility] Glucose [Mass/Vol] 141 mg/dL [address] Comment on above: Performed By: #### 4 6919 ####[facility] [address] [place] [address] [id number] [facility] Glucose [Mass/Vol] 152 mg/dL [address] Comment on above: Performed By: #### 4 6911 ####[facility] [address] [place] [address] [id number] [facility] Glucose [Mass/Vol] 178 mg/dL [address] Comment on above: Performed By: #### 4 2524 ####[facility] [address] [place] [address] [id number] [facility] Glucose [Mass/Vol] 145 mg/dL [address] Comment on above: Performed By: #### 4 1072 ####[facility] [address] [place] [address] [id number] [facility] POTASSIUM LEVELon 04-29-2024 Potassium [Moles/Vol] 5.0 mmol/L Normal 3.5-5.1 [facility] Comment on above: Performed By: #### 4 6351 ####[facility] [address] [place] [address] Huber Prado M.D. [id number] BASIC METABOLIC PANELon 08-3 0-2023 Anion gap [Moles/Vol] 24 mmol/L High 10-20 [facility] Comment on above: Order Comment: [facility] Services has implemented the eGFR calculation approach that does not have a coefficient for race that conforms to the NKF-ASN Task Force Recommendations. Performed By: #### 4 6124 ####[facility] [address] [place] [address] Huber Prado M.D. [id number] Calcium [Mass/Vol] 9.2 mg/dL Normal 8.4-10.2 [facility] Comment on above: Order Comment: [facility] Services has implemented the eGFR calculation approach that does not have a coefficient for race that conforms to the NKF-ASN Task Force Recommendations. Performed By: #### 4 6124 ####[facility] [address] [place] [address] Huber Prado M.D. [id number] Chloride [Moles/Vol] 97 mmol/L Low 98-108 [facility] Comment on above: Order Comment: [facility] Services has implemented the eGFR calculation approach that does not have a coefficient for race that conforms to the NKF-ASN Task Force Recommendations. Performed By: #### 4 6124 ####[facility] [address] [place] [address] Huber Prado M.D. [id number] Creatinine [Mass/Vol] 3.78 mg/dL High 0.40-1.10 [facility] Comment on above: Order Comment: [facility] Services has implemented the eGFR calculation approach that does not have a coefficient for race that conforms to the NKF-ASN Task Force Recommendations. Performed By: #### 4 6124 ####[facility] [address] [place] [address] Huber Prado M.D. [id number] EGFR 15 mL/min/1.73 m2 Low >=60 [facility] Comment on above: Order Comment: [facility] Services has implemented the eGFR calculation approach that does not have a coefficient for race that conforms to the NKF-ASN Task Force Recommendations. Result Comment: Neema mated GFR was calculated using the 2020 CKD-EPI creatinine equation. Performed By: #### 4 6124 ####[facility] [address] [place] [address] Huber Prado M.D. [id number] Glucose [Mass/Vol] 179 mg/dL High 65-99 [facility] Comment on above: Order Comment: [facility] Services has implemented the eGFR calculation approach that does not have a coefficient for race that conforms to the NKF-ASN Task Force Recommendations. Performed By: #### 4 6124 ####[facility] [address] [place] [address] Huber Prado M.D. [id number] HCO3 (Bld) [Moles/Vol] 26 mmol/L Normal 21-32 [facility] Comment on above: Order Comment: [facility] Services has implemented the eGFR calculation approach that does not have a coefficient for race that conforms to the NKF-ASN Task Force Recommendations. Performed By: #### 4 6124 ####[facility] [address] [place] [address] Huber Prado M.D. [id number] Potassium [Moles/Vol] 5.1 mmol/L Normal 3.5-5.1 [facility] Comment on above: Order Comment: [facility] Services has implemented the eGFR calculation approach that does not have a coefficient for race that conforms to the NKF-ASN Task Force Recommendations. Result Comment: Slig htly Hemolyzed Performed By: #### 4 6124 ####[facility] [address] [place] [address] Huber Prado M.D. [id number] Sodium [Moles/Vol] 142 mmol/L Normal 135-145 [facility] Comment on above: Order Comment: [facility] Services has implemented the eGFR calculation approach that does not have a coefficient for race that conforms to the NKF-ASN Task Force Recommendations. Performed By: #### 4 6124 ####[facility] [address] [place], [place] [address] Huber Prado M.D. [id number] Urea nitrogen [Mass/Vol] 81 mg/dL High 8-25 [facility] Comment on above: Order Comment: [facility] Services has implemented the eGFR calculation approach that does not have a coefficient for race that conforms to the NKF-ASN Task Force Recommendations. Performed By: #### 4 6124 ####[facility] [address] [place], [place] [address] Huber Prado M.D. [id number] Urea nitrogen/Creatinine [Mass ratio] 21.4 mg/mg High 10.0-20.0 [facility] Comment on above: Order Comment: [facility] Services has implemented the eGFR calculation approach that does not have a coefficient for race that conforms to the NKF-ASN Task Force Recommendations. Performed By: #### 4 6124 ####[facility] [address] [place] [address] Huber Prado M.D. [id number] CBC WITH AUTO DIFFERENTIALon 04-28-2024 AUTO NRBC 0.0 % Normal [facility] Comment on above: Performed By: #### L [id number] ####[facility] [address] [place] [address] Huber Prado M.D. [id number] AUTO NRBC ABS COUNT 0.00 K/mcL Normal 0.00-0.[address] [facility] Comment on above: Performed By: #### L [id number] ####[facility] [address] [place] [address] Huber Prado M.D. [id number] BASOPHILS ABSOLUTE COUNT 0.10 K/mcL Normal 0.00-0.30 [facility] Comment on above: Performed By: #### L [id number] ####[facility] [address] [place] [address] Huber Prado M.D. [id number] Basophils/100 WBC (Bld) 0.9 % Normal [facility] Comment on above: Performed By: #### L [id number] ####[facility] [address] [place] [address] Huber Prado M.D. [id number] Eosinophils (Bld) [#/Vol] 0.53 10*3/uL High 0.00-0.50 [facility] Comment on above: Performed By: #### L [id number] ####[facility] [address] [place] [address] Huber Prado M.D. [id number] Eosinophils/100 WBC (Bld) 4.6 % Normal [facility] Comment on above: Performed By: #### L [id number] ####[facility] [address] [place] [address] Huber Prado M.D. [id number] Erythrocyte distribution width (RBC) [Ratio] 14.6 % Normal 11.6-14.8 [facility] Comment on above: Performed By: #### L [id number] ####[facility] [address] [place] [address] Huber Prado M.D. [id number] Hematocrit (Bld) [Volume fraction] 32.9 % Low 36.0-46.0 [facility] Comment on above: Performed By: #### L [id number] ####[facility] [address] [place], [place] [address] Huber Prado M.D. [id number] Hemoglobin (Bld) [Mass/Vol] 10.3 g/dL Low 12.0-16.0 [facility] Comment on above: Performed By: #### L [id number] ####[facility] [address] [place], [place] [address] Huber Prado M.D. [id number] IG ABSOLUTE 0.19 K/mcL Normal 0.00-0.30 [facility] Comment on above: Performed By: #### L [id number] ####[facility] [address] [place] [address] Huber Prado M.D. [id number] IG PERCENT 1.70 % Normal [facility] Comment on above: Result Comment: The IG parameter is the percentage of metamyelocytes, myelocytes and promyelocytes. An immature granulocyte count (IG) of 1% or more suggests the possibility of infection, an IG count of 3% is very likely related to an infection. Performed By: #### L [id number] ####[facility] [address] [place], [place] [address] Huber Prado M.D. [id number] Lymphocytes (Bld) [#/Vol] 1.08 10*3/uL Normal 0.90-4.00 [facility] Comment on above: Performed By: #### L [id number] ####[facility] [address] [place], [place] [address] Huber Prado M.D. [id number] Lymphocytes/100 WBC (Bld) 9.4 % Normal [facility] Comment on above: Performed By: #### L [id number] ####[facility] [address] [place], [place] [address] Huber Prado M.D. [id number] MCH (RBC) [Entitic mass] 29.4 pg Normal 26.0-34.0 [facility] Comment on above: Performed By: #### L [id number] ####[facility] [address] [place] [address] Huber Prado M.D. [id number] MCV (RBC) [Entitic vol] 94.0 fL Normal 80.0-100.0 [facility] Comment on above: Performed By: #### L [id number] ####[facility] [address] [place] [address] Huber Prado M.D. [id number] MEAN CORPUSCULAR HEMOGLOBIN CONC 31.3 g/dL Normal 31.0-37.0 [facility] Comment on above: Performed By: #### Tasha [id number] ####[facility] [address] [place] [address] Huber Prado M.D. [id number] Monocytes (Bld) [#/Vol] 1.37 10*3/uL High 0.30-0.90 [facility] Comment on above: Performed By: #### Tasha [id number] ####[facility] [address] [place] [address] Huber Prado M.D. [id number] Monocytes/100 WBC (Bld) 12.0 % Normal [facility] Comment on above: Performed By: #### Tasha [id number] ####[facility] [address] [place] [address] Huber Prado M.D. [id number] NEUTROPHILS ABSOLUTE COUNT 8.18 K/mcL High 1.70-7.00 [facility] Comment on above: Performed By: #### L [id number] ####[facility] [address] [place] [address] Huber Prado M.D. [id number] Neutrophils/100 WBC (Bld) 71.4 % Normal [facility] Comment on above: Performed By: #### L [id number] ####[facility] [address] [place] [address] Huber Prado M.D. [id number] Platelet mean volume (Bld) [Entitic vol] 10.6 fL Normal 9.4-12.4 [facility] Comment on above: Performed By: #### L [id number] ####[facility] [address] [place] [address] Huber Prado M.D. [id number] Platelets (Bld) [#/Vol] 245 10*3/uL Normal 150-400 [facility] Comment on above: Performed By: #### L [id number] ####[facility] [address] [place] [address] Huber Prado M.D. [id number] RBC (Bld) [#/Vol] 3.50 10*6/uL Low 4.00-5.[address] [facility] Comment on above: Performed By: #### L [id number] ####[facility] [address] [place] [address] Huber Prado M.D. [id number] WBC (Bld) [#/Vol] 11.45 10*3/uL High 4.50-11.00 [facility] Comment on above: Performed By: #### L [id number] ####[facility] [address] [place] [address] Huber Prado M.D. [id number] POC ARTERIAL BLOOD GAS PANEL -[facility] 04-28-2024 BASE EXCESS, ARTERIAL 4.9 High -2.0-2.0 [facility] Comment on above: Performed By: #### 4 [id number] ####[facility] [address] [place] [address] [id number] RMHPOC CALCIUM IONIZED 4.8 mg/dL Normal 4.5-5.3 [facility] Comment on above: Performed By: #### 4 8716 ####[facility] [address] [place] [address] [id number] [facility] CARBOXYHEMOGLOBIN 1.0 % of total Hb Normal <=1.5 [facility] Comment on above: Result Comment: Refe rence Ranges:[facility] Non-smokers: <1.5%Smokers: 1.5-5.0%Heavy Smokers: 5.0-9.0% Performed By: #### 4 8716 ####[facility] [address] [place] [address] [id number] [facility] Chloride [Moles/Vol] 96 mmol/L Low 98-108 [facility] Comment on above: Performed By: #### 4 8716 ####[facility] [address] [place] [address] [id number] RM[facility] FIO2 40 Normal [facility] Comment on above: Performed By: #### 4 [id number] ####[facility] [address] [place] [address] [id number] [facility] Glucose [Mass/Vol] 176 mg/dL High 65-99 [facility] Comment on above: Performed By: #### 4 8716 ####[facility] [address] [place] [address] [id number] [facility] HCO3 (Bld) [Moles/Vol] 30.9 mmol/L High 22.0-26.0 [facility] Comment on above: Performed By: #### 4 8716 ####[facility] [address] [place] [address] [id number] [facility] Hematocrit (Bld) [Volume fraction] 32.5 % Low 36.0-46.0 [facility] Comment on above: Performed By: #### 4 [id number] ####[facility] [address] [place] [address] [id number] [facility] Hemoglobin (Bld) [Mass/Vol] 10.6 g/dL Low 12.0-16.0 [facility] Comment on above: Performed By: #### 4 [id number] ####[facility] [address] [place] [address] [id number] [facility] LACTIC ACID, WHOLE BLOOD 1.3 mmol/L Normal 0.6-2.0 [facility] Comment on above: Performed By: #### 4 8716 ####[facility] [address] [place] [address] [id number] [facility] METHEMOGLOBIN < Normal 0.0-2.0 [facility] Comment on above: Performed By: #### 4 8716 ####[facility] [address] [place] [address] [id number] [facility] O2HB 97.8 % Normal 94.0-98.0 [facility] Comment on above: Performed By: #### 4 8716 ####[facility] [address] [place] [address] [id number] [facility] Oxygen saturation in Blood 99.4 % High 92.0-99.0 [facility] Comment on above: Performed By: #### 4 8716 ####[facility] [address] [place] [address] [id number] [facility] PCO2 ARTERIAL 52.0 mm Hg High 35.0-45.0 [facility] Comment on above: Performed By: #### 4 8716 ####[facility] [address] [place] [address] [id number] [facility] PEEP RAD 8 Normal [facility] Comment on above: Performed By: #### 4 8716 ####[facility] [address] [place] [address] [id number] [facility] PH ARTERIAL 7.38 Normal 7.35-7.45 [facility] Comment on above: Performed By: #### 4 8716 ####[facility] [address] [place] [address] [id number] RM[facility] PO2 ARTERIAL 128 mm Hg High 80-100 [facility] Comment on above: Performed By: #### 4 8716 ####[facility] [address] [place] [address] [id number] [facility] Potassium [Moles/Vol] 4.4 mmol/L Normal 3.5-5.1 [facility] Comment on above: Performed By: #### 4 8716 ####[facility] [address] [place] [address] [id number] [facility] Sodium [Moles/Vol] 142 mmol/L Normal 135-145 [facility] Comment on above: Performed By: #### 4 8716 ####[facility] [address] [place] [address] [id number] [facility] POC GLUCOSE [facility] 024 Glucose [Mass/Vol] 144 mg/dL [address] Comment on above: Performed By: #### 4 8686 ####[facility] [address] [place] [address] [id number] [facility] Glucose [Mass/Vol] 144 mg/dL [address] Comment on above: Performed By: #### 4 1545 ####[facility] [address] [place] [address] [id number] [facility] Glucose [Mass/Vol] 182 mg/dL [address] Comment on above: Performed By: #### 4 0752 ####[facility] [address] [place] [address] [id number] [facility] Glucose [Mass/Vol] 156 mg/dL [address] Comment on above: Performed By: #### 4 5823 ####[facility] [address] [place] [address] [id number] [facility] Glucose [Mass/Vol] 172 mg/dL [address] Comment on above: Performed By: #### 4 6770 ####[facility] [address] [place] [address] [id number] [facility] Glucose [Mass/Vol] 202 mg/dL High 65-99 [facility] Comment on above: Performed By: #### 4 6932 ####[facility] [address] [place] [address] [id number] [facility] TRIGLYCERIDESon 04-28-2024 Triglyceride [Mass/Vol] 525 mg/dL High 30-150 [facility] Comment on above: Performed By: #### 4 6606 ####[facility] [address] [place] [address] Huber Prado M.D. [id number] BASIC METABOLIC PANELon 03-31 Anion gap [Moles/Vol] 22 mmol/L High 10-20 [facility] Comment on above: Order Comment: [facility] Services has implemented the eGFR calculation approach that does not have a coefficient for race that conforms to the NKF-ASN Task Force Recommendations. Performed By: #### 4 6124 ####[facility] [address] [place], [place] [address] Huber Prado M.D. [id number] Calcium [Mass/Vol] 9.1 mg/dL Normal 8.4-10.2 [facility] Comment on above: Order Comment: [facility] has implemented the eGFR calculation approach that does not have a coefficient for race that conforms to the NKF-ASN Task Force Recommendations. Performed By: #### 4 6124 ####[facility] [address] [place], [place] [address] Huber Prado M.D. [id number] Chloride [Moles/Vol] 98 mmol/L Normal 98-108 [facility] Comment on above: Order Comment: [facility] Services has implemented the eGFR calculation approach that does not have a coefficient for race that conforms to the NKF-ASN Task Force Recommendations. Performed By: #### 4 6124 ####[facility] [address] [place], [place] [address] Huber Prado M.D. [id number] Creatinine [Mass/Vol] 4.17 mg/dL High 0.40-1.10 [facility] Comment on above: Order Comment: [facility] has implemented the eGFR calculation approach that does not have a coefficient for race that conforms to the NKF-ASN Task Force Recommendations. Performed By: #### 4 6124 ####[facility] [address] [place] [address] Huber Prado M.D. [id number] EGFR 14 mL/min/1.73 m2 Low >=60 [facility] Comment on above: Order Comment: [facility] has implemented the eGFR calculation approach that does not have a coefficient for race that conforms to the NKF-ASN Task Force Recommendations. Result Comment: Neema mated GFR was calculated using the 2020 CKD-EPI creatinine equation. Performed By: #### 4 6124 ####[facility] [address] [place] [address] Huber Prado M.D. [id number] Glucose [Mass/Vol] 156 mg/dL High 65-99 [facility] Comment on above: Order Comment: [facility] has implemented the eGFR calculation approach that does not have a coefficient for race that conforms to the NKF-ASN Task Force Recommendations. Performed By: #### 4 6124 ####[facility] [address] [place] [address] Huber Prado M.D. [id number] HCO3 (Bld) [Moles/Vol] 29 mmol/L Normal 21-32 [facility] Comment on above: Order Comment: [facility] has implemented the eGFR calculation approach that does not have a coefficient for race that conforms to the NKF-ASN Task Force Recommendations. Performed By: #### 4 6180 ####[facility] [address] [place] [address] Huber Prado M.D. [id number] Potassium [Moles/Vol] 5.6 mmol/L High 3.5-5.1 [facility] Comment on above: Order Comment: [facility] has implemented the eGFR calculation approach that does not have a coefficient for race that conforms to the NKF-ASN Task Force Recommendations. Result Comment: Lb cruz Hemolyzed Performed By: #### 4 6124 ####[facility] [address] [place] [address] Huber Prado M.D. [id number] Sodium [Moles/Vol] 143 mmol/L Normal 135-145 [facility] Comment on above: Order Comment: [facility] has implemented the eGFR calculation approach that does not have a coefficient for race that conforms to the NKF-ASN Task Force Recommendations. Performed By: #### 4 6138 ####[facility] [address] [place], [place] [address] Huber Prado M.D. [id number] Urea nitrogen [Mass/Vol] 76 mg/dL High 8-25 [facility] Comment on above: Order Comment: [facility] has implemented the eGFR calculation approach that does not have a coefficient for race that conforms to the NKF-ASN Task Force Recommendations. Performed By: #### 4 6126 ####[facility] [address] [place] [address] Huber Prado M.D. [id number] Urea nitrogen/Creatinine [Mass ratio] 18.2 mg/mg Normal 10.0-20.0 [facility] Comment on above: Order Comment: [facility] has implemented the eGFR calculation approach that does not have a coefficient for race that conforms to the NKF-ASN Task Force Recommendations. Performed By: #### 4 6127 ####[facility] [address] [place] [address] Huber Prado M.D. [id number] Anion gap [Moles/Vol] 21 mmol/L High 10-20 [facility] Comment on above: Order Comment: [facility] has implemented the eGFR calculation approach that does not have a coefficient for race that conforms to the NKF-ASN Task Force Recommendations. Performed By: #### 4 6124 ####[facility] [address] [place] [address] Huber Prado M.D. [id number] Calcium [Mass/Vol] 8.9 mg/dL Normal 8.4-10.2 [facility] Comment on above: Order Comment: [facility] has implemented the eGFR calculation approach that does not have a coefficient for race that conforms to the NKF-ASN Task Force Recommendations. Performed By: #### 4 6124 ####[facility] [address] [place] [address] Huber Prado M.D. [id number] Chloride [Moles/Vol] 101 mmol/L Normal 98-108 [facility] Comment on above: Order Comment: [facility] has implemented the eGFR calculation approach that does not have a coefficient for race that conforms to the NKF-ASN Task Force Recommendations. Performed By: #### 4 6124 ####[facility] [address] [place] [address] Huber Prado M.D. [id number] Creatinine [Mass/Vol] 4.09 mg/dL High 0.40-1.10 [facility] Comment on above: Order Comment: [facility] has implemented the eGFR calculation approach that does not have a coefficient for race that conforms to the NKF-ASN Task Force Recommendations. Performed By: #### 4 6124 ####[facility] [address] [place] [address] Huber Prado M.D. [id number] EGFR 14 mL/min/1.73 m2 Low >=60 [facility] Comment on above: Order Comment: [facility] has implemented the eGFR calculation approach that does not have a coefficient for race that conforms to the NKF-ASN Task Force Recommendations. Result Comment: Neema mated GFR was calculated using the 2020 CKD-EPI creatinine equation. Performed By: #### 4 6124 ####[facility] [address] [place] [address] Huber Prado M.D. [id number] Glucose [Mass/Vol] 162 mg/dL High 65-99 [facility] Comment on above: Order Comment: [facility] has implemented the eGFR calculation approach that does not have a coefficient for race that conforms to the NKF-ASN Task Force Recommendations. Performed By: #### 4 6124 ####[facility] [address] [place] [address] Huber Prado M.D. [id number] HCO3 (Bld) [Moles/Vol] 26 mmol/L Normal 21-32 [facility] Comment on above: Order Comment: [facility] has implemented the eGFR calculation approach that does not have a coefficient for race that conforms to the NKF-ASN Task Force Recommendations. Performed By: #### 4 6124 ####[facility] [address] [place] [address] Huber Prado M.D. [id number] Potassium [Moles/Vol] 5.4 mmol/L High 3.5-5.1 [facility] Comment on above: Order Comment: [facility] has implemented the eGFR calculation approach that does not have a coefficient for race that conforms to the NKF-ASN Task Force Recommendations. Result Comment: Slig htly Hemolyzed Performed By: #### 4 6124 ####[facility] [address] [place] [address] Huber Prado M.D. [id number] Sodium [Moles/Vol] 143 mmol/L Normal 135-145 [facility] Comment on above: Order Comment: [facility] has implemented the eGFR calculation approach that does not have a coefficient for race that conforms to the NKF-ASN Task Force Recommendations. Performed By: #### 4 6124 ####[facility] [address] [place] [address] Huber Prado M.D. [id number] Urea nitrogen [Mass/Vol] 73 mg/dL High 8-25 [facility] Comment on above: Order Comment: [facility] has implemented the eGFR calculation approach that does not have a coefficient for race that conforms to the NKF-ASN Task Force Recommendations. Performed By: #### 4 6124 ####[facility] [address] [place], [place] [address] Huber Prado M.D. [id number] Urea nitrogen/Creatinine [Mass ratio] 17.8 mg/mg Normal 10.0-20.0 [facility] Comment on above: Order Comment: [facility] has implemented the eGFR calculation approach that does not have a coefficient for race that conforms to the NKF-ASN Task Force Recommendations. Performed By: #### 4 6124 ####[facility] [address] [place], [place] [address] Huber Prado M.D. [id number] CBC WITH AUTO DIFFERENTIALon 04-27-2024 AUTO NRBC 0.0 % Normal [facility] Comment on above: Performed By: #### L [id number] ####[facility] [address] [place] [address] Huber Prado M.D. [id number] AUTO NRBC ABS COUNT 0.00 K/mcL Normal 0.00-0.[address] [facility] Comment on above: Performed By: #### L [id number] ####[facility] [address] [place] [address] Huber Prado M.D. [id number] BASOPHILS ABSOLUTE COUNT 0.09 K/mcL Normal 0.00-0.30 [facility] Comment on above: Performed By: #### L [id number] ####[facility] [address] [place], [place] [address] Huber Prado M.D. [id number] Basophils/100 WBC (Bld) 0.8 % Normal [facility] Comment on above: Performed By: #### L [id number] ####[facility] [address] [place] [address] Huber Prado M.D. [id number] Eosinophils (Bld) [#/Vol] 0.46 10*3/uL Normal 0.00-0.50 [facility] Comment on above: Performed By: #### L [id number] ####[facility] [address] [place] [address] Huber Prado M.D. [id number] Eosinophils/100 WBC (Bld) 4.2 % Normal [facility] Comment on above: Performed By: #### Tasha [id number] ####[facility] [address] [place] [address] Huber Prado M.D. [id number] Erythrocyte distribution width (RBC) [Ratio] 14.8 % Normal 11.6-14.8 [facility] Comment on above: Performed By: #### Tasha [id number] ####[facility] [address] [place] [address] Huber Prado M.D. [id number] Hematocrit (Bld) [Volume fraction] 29.5 % Low 36.0-46.0 [facility] Comment on above: Performed By: #### L [id number] ####[facility] [address] [place] [address] Huber Prado M.D. [id number] Hemoglobin (Bld) [Mass/Vol] 9.3 g/dL Low 12.0-16.0 [facility] Comment on above: Performed By: #### L [id number] ####[facility] [address] [place] [address] Huebr Prado M.D. [id number] IG ABSOLUTE 0.18 K/mcL Normal 0.00-0.30 [facility] Comment on above: Performed By: #### L [id number] ####[facility] [address] [place], [place] [address] Huber Prado M.D. [id number] IG PERCENT 1.60 % Normal [facility] Comment on above: Result Comment: The IG parameter is the percentage of metamyelocytes, myelocytes and promyelocytes. An immature granulocyte count (IG) of 1% or more suggests the possibility of infection, an IG count of 3% is very likely related to an infection. Performed By: #### L [id number] ####[facility] [address] [place] [address] Huber Prado M.D. [id number] Lymphocytes (Bld) [#/Vol] 1.21 10*3/uL Normal 0.90-4.00 [facility] Comment on above: Performed By: #### L [id number] ####[facility] [address] [place] [address] Huber Prado M.D. [id number] Lymphocytes/100 WBC (Bld) 10.9 % Normal [facility] Comment on above: Performed By: #### L [id number] ####[facility] [address] [place], [place] [address]Nora Prado M.D. [id number] MCH (RBC) [Entitic mass] 29.7 pg Normal 26.0-34.0 [facility] Comment on above: Performed By: #### L [id number] ####[facility] [address] [place], [place] [address] Huber Prado M.D. [id number] MCV (RBC) [Entitic vol] 94.2 fL Normal 80.0-100.0 [facility] Comment on above: Performed By: #### L [id number] ####[facility] [address] [place], [place] [address] Huber Prado M.D. [id number] MEAN CORPUSCULAR HEMOGLOBIN CONC 31.5 g/dL Normal 31.0-37.0 [facility] Comment on above: Performed By: #### Tasha [id number] ####[facility] [address] [place] [address] Huber Prado M.D. [id number] Monocytes (Bld) [#/Vol] 1.35 10*3/uL High 0.30-0.90 [facility] Comment on above: Performed By: #### Tasha [id number] ####[facility] [address] [place] [address] Huber Prado M.D. [id number] Monocytes/100 WBC (Bld) 12.2 % Normal [facility] Comment on above: Performed By: #### Tasha [id number] ####[facility] [address] [place] [address] Huber Prado M.D. [id number] NEUTROPHILS ABSOLUTE COUNT 7.77 K/mcL High 1.70-7.00 [facility] Comment on above: Performed By: #### Tasha [id number] ####[facility] [address] [place], [place] [address] Huber Prado M.D. [id number] Neutrophils/100 WBC (Bld) 70.3 % Normal [facility] Comment on above: Performed By: #### Tasha [id number] ####[facility] [address] [place], [place] [address] Huber Prado M.D. [id number] Platelet mean volume (Bld) [Entitic vol] 11.0 fL Normal 9.4-12.4 [facility] Comment on above: Performed By: #### Tasha [id number] ####[facility] [address] [place] [address] Huber Prado M.D. [id number] Platelets (Bld) [#/Vol] 226 10*3/uL Normal 150-400 [facility] Comment on above: Performed By: #### L [id number] ####[facility] [address] [place] [address] Huber Prado M.D. [id number] RBC (Bld) [#/Vol] 3.13 10*6/uL Low 4.00-5.[address] [facility] Comment on above: Performed By: #### L [id number] ####[facility] [address] [place] [address] Huber Prado M.D. [id number] WBC (Bld) [#/Vol] 11.06 10*3/uL High 4.50-11.00 [facility] Comment on above: Performed By: #### Tasha [id number] ####[facility] [address] [place] [address] Huber Prado M.D. [id number] POC GLUCOSE [facility] 024 Glucose [Mass/Vol] 170 mg/dL High [address] [place] [address] Comment on above: Performed By: #### 4 6978 ####[facility] [address] [place] [address] [id number] [facility] Glucose [Mass/Vol] 146 mg/dL High [address] [place] [address] Comment on above: Performed By: #### 4 6939 ####[facility] [address] [place] [address] [id number] [facility] Glucose [Mass/Vol] 153 mg/dL [address] Comment on above: Performed By: #### 4 0675 ####[facility] [address] [place] [address] [id number] [facility] Glucose [Mass/Vol] 152 mg/dL [address] Comment on above: Performed By: #### 4 6932 ####[facility] [address] [place] [address] [id number] [facility] Glucose [Mass/Vol] 199 mg/dL [address] Comment on above: Performed By: #### 4 6932 ####[facility] [address] [place] [address] [id number] [facility] Glucose [Mass/Vol] 127 mg/dL [address] Comment on above: Performed By: #### 4 6932 ####[facility] [address] [place] [address] [id number] [facility] Glucose [Mass/Vol] 157 mg/dL [address] [address] Comment on above: Performed By: #### 4 6932 ####[facility] [address] [place] [address] [id number] [facility] Glucose [Mass/Vol] 143 mg/dL [address] Comment on above: Performed By: #### 4 6932 ####[facility] [address] [place] [address] [id number] [facility] Glucose [Mass/Vol] 140 mg/dL [address] Comment on above: Performed By: #### 4 6932 ####[facility] [address] [place] [address] [id number] [facility] Glucose [Mass/Vol] 167 mg/dL [address] Comment on above: Performed By: #### 4 6932 ####[facility] [address] [place] [address] [id number] [facility] XR CHEST PA/APon 04-27-2024 XR CHEST PA/AP Normal [facility] Comment on above: Order Comment: Injur y/Trauma or Illness?:Illness/OtherHow long have you had these symptoms (acute/chronic)?:AcuteReason for exam?:concern for mucus pluggingHistory of cancer?:UnknownSurgeries, chemotherapy, or radiation?:YesType of Exam?:OngoingAdditional signs and symptoms?:concern for mucus plugging BASIC METABOLIC PANELon 08- Anion gap [Moles/Vol] 19 mmol/L Normal 10-20 [facility] Comment on above: Order Comment: [facility] Services has implemented the eGFR calculation approach that does not have a coefficient for race that conforms to the NKF-ASN Task Force Recommendations. Performed By: #### 4 6124 ####[facility] [address] [place], [place] [address] Huber Prado M.D. [id number] Calcium [Mass/Vol] 8.9 mg/dL Normal 8.4-10.2 [facility] Comment on above: Order Comment: [facility] Services has implemented the eGFR calculation approach that does not have a coefficient for race that conforms to the NKF-ASN Task Force Recommendations. Performed By: #### 4 6124 ####[facility] [address] [place], [place] [address] Huber Prado M.D. [id number] Chloride [Moles/Vol] 101 mmol/L Normal 98-108 [facility] Comment on above: Order Comment: [facility] Services has implemented the eGFR calculation approach that does not have a coefficient for race that conforms to the NKF-ASN Task Force Recommendations. Performed By: #### 4 6124 ####[facility] [address] [place] [address] Huber Prado M.D. [id number] Creatinine [Mass/Vol] 3.68 mg/dL High 0.40-1.10 [facility] Comment on above: Order Comment: [facility] Services has implemented the eGFR calculation approach that does not have a coefficient for race that conforms to the NKF-ASN Task Force Recommendations. Performed By: #### 4 6124 ####[facility] [address] [place] [address] Huber Prado M.D. [id number] EGFR 16 mL/min/1.73 m2 Low >=60 [facility] Comment on above: Order Comment: [facility] Services has implemented the eGFR calculation approach that does not have a coefficient for race that conforms to the NKF-ASN Task Force Recommendations. Result Comment: Enema mated GFR was calculated using the 2020 CKD-EPI creatinine equation. Performed By: #### 4 6124 ####[facility] [address] [place] [address] Huber Prado M.D. [id number] Glucose [Mass/Vol] 175 mg/dL High 65-99 [facility] Comment on above: Order Comment: [facility] Services has implemented the eGFR calculation approach that does not have a coefficient for race that conforms to the NKF-ASN Task Force Recommendations. Performed By: #### 4 6124 ####[facility] [address] [place] [address] Huber Prado M.D. [id number] HCO3 (Bld) [Moles/Vol] 28 mmol/L Normal 21-32 [facility] Comment on above: Order Comment: [facility] Services has implemented the eGFR calculation approach that does not have a coefficient for race that conforms to the NKF-ASN Task Force Recommendations. Performed By: #### 4 6124 ####[facility] [address] [place] [address] Huber Prado M.D. [id number] Potassium [Moles/Vol] 4.7 mmol/L Normal 3.5-5.1 [facility] Comment on above: Order Comment: [facility] Services has implemented the eGFR calculation approach that does not have a coefficient for race that conforms to the NKF-ASN Task Force Recommendations. Performed By: #### 4 6124 ####[facility] [address] [place] [address] Huber Prado M.D. [id number] Sodium [Moles/Vol] 143 mmol/L Normal 135-145 [facility] Comment on above: Order Comment: [facility] Services has implemented the eGFR calculation approach that does not have a coefficient for race that conforms to the NKF-ASN Task Force Recommendations. Performed By: #### 4 6124 ####[facility] [address] [place], [place] [address] Huber Prado M.D. [id number] Urea nitrogen [Mass/Vol] 64 mg/dL High 8-25 [facility] Comment on above: Order Comment: [facility] Services has implemented the eGFR calculation approach that does not have a coefficient for race that conforms to the NKF-ASN Task Force Recommendations. Performed By: #### 4 6124 ####[facility] [address] [place], [place] [address] Huber Prado M.D. [id number] Urea nitrogen/Creatinine [Mass ratio] 17.4 mg/mg Normal 10.0-20.0 [facility] Comment on above: Order Comment: [facility] Services has implemented the eGFR calculation approach that does not have a coefficient for race that conforms to the NKF-ASN Task Force Recommendations. Performed By: #### 4 6124 ####[facility] [address] [place], [place] [address] Huber Prado M.D. [id number] CBC WITH AUTO DIFFERENTIALon 04-26-2024 AUTO NRBC 0.0 % Normal [facility] Comment on above: Performed By: #### L [id number] ####[facility] [address] [place] [address] Huber Prado M.D. [id number] AUTO NRBC ABS COUNT 0.00 K/mcL Normal 0.00-0.[address] [facility] Comment on above: Performed By: #### L [id number] ####[facility] [address] [place] [address] Huber Prado M.D. [id number] BASOPHILS ABSOLUTE COUNT 0.08 K/mcL Normal 0.00-0.30 [facility] Comment on above: Performed By: #### L [id number] ####[facility] [address] [place], [place] [address] Huber Prado M.D. [id number] Basophils/100 WBC (Bld) 0.7 % Normal [facility] Comment on above: Performed By: #### Tasha [id number] ####[facility] [address] [place] [address] Huber Prado M.D. [id number] Eosinophils (Bld) [#/Vol] 0.28 10*3/uL Normal 0.00-0.50 [facility] Comment on above: Performed By: #### L [id number] ####[facility] [address] [place] [address] Huber Prado M.D. [id number] Eosinophils/100 WBC (Bld) 2.3 % Normal [facility] Comment on above: Performed By: #### Tasha [id number] ####[facility] [address] [place], [place] [address] Huber Prado M.D. [id number] Erythrocyte distribution width (RBC) [Ratio] 15.1 % High 11.6-14.8 [facility] Comment on above: Performed By: #### Tasha [id number] ####[facility] [address] [place], [place] [address] Huber Prado M.D. [id number] Hematocrit (Bld) [Volume fraction] 35.1 % Low 36.0-46.0 [facility] Comment on above: Performed By: #### L [id number] ####[facility] [address] [place], [place] [address] Huber Prado M.D. [id number] Hemoglobin (Bld) [Mass/Vol] 10.9 g/dL Low 12.0-16.0 [facility] Comment on above: Performed By: #### L [id number] ####[facility] [address] [place] [address] Huber Prado M.D. [id number] IG ABSOLUTE 0.17 K/mcL Normal 0.00-0.30 [facility] Comment on above: Performed By: #### L [id number] ####[facility] [address] [place] [address] Huber Prado M.D. [id number] IG PERCENT 1.40 % Normal [facility] Comment on above: Result Comment: The IG parameter is the percentage of metamyelocytes, myelocytes and promyelocytes. An immature granulocyte count (IG) of 1% or more suggests the possibility of infection, an IG count of 3% is very likely related to an infection. Performed By: #### L [id number] ####[facility] [address] [place] [address] Huber Prado M.D. [id number] Lymphocytes (Bld) [#/Vol] 1.44 10*3/uL Normal 0.90-4.00 [facility] Comment on above: Performed By: #### L [id number] ####[facility] [address] [place] [address] Huber Prado M.D. [id number] Lymphocytes/100 WBC (Bld) 11.8 % Normal [facility] Comment on above: Performed By: #### L [id number] ####[facility] [address] [place] [address] Huber Prado M.D. [id number] MCH (RBC) [Entitic mass] 30.4 pg Normal 26.0-34.0 [facility] Comment on above: Performed By: #### L [id number] ####[facility] [address] [place] [address] Huber Prado M.D. [id number] MCV (RBC) [Entitic vol] 98.0 fL Normal 80.0-100.0 [facility] Comment on above: Performed By: #### L [id number] ####[facility] [address] [place] [address] Huber Prado M.D. [id number] MEAN CORPUSCULAR HEMOGLOBIN CONC 31.1 g/dL Normal 31.0-37.0 [facility] Comment on above: Performed By: #### L [id number] ####[facility] [address] [place] [address] Huber Prado M.D. [id number] Monocytes (Bld) [#/Vol] 1.69 10*3/uL High 0.30-0.90 [facility] Comment on above: Performed By: #### Tasha [id number] ####[facility] [address] [place] [address] Huber Prado M.D. [id number] Monocytes/100 WBC (Bld) 13.9 % Normal [facility] Comment on above: Performed By: #### Tasha [id number] ####[facility] [address] [place] [address] Huebr Prado M.D. [id number] NEUTROPHILS ABSOLUTE COUNT 8.54 K/mcL High 1.70-7.00 [facility] Comment on above: Performed By: #### L [id number] ####[facility] [address] [place], [place] [address] Huber Prado M.D. [id number] Neutrophils/100 WBC (Bld) 69.9 % Normal [facility] Comment on above: Performed By: #### L [id number] ####[facility] [address] [place] [address] Huber Prado M.D. [id number] Platelet mean volume (Bld) [Entitic vol] 11.2 fL Normal 9.4-12.4 [facility] Comment on above: Performed By: #### L [id number] ####[facility] [address] [place] [address] Huber Prado M.D. [id number] Platelets (Bld) [#/Vol] 205 10*3/uL Normal 150-400 [facility] Comment on above: Performed By: #### L [id number] ####[facility] [address] [place], [place] [address] Huber Prado M.D. [id number] RBC (Bld) [#/Vol] 3.58 10*6/uL Low 4.00-5.[address] [facility] Comment on above: Performed By: #### L [id number] ####[facility] [address] [place] [address] Huber Prado M.D. [id number] WBC (Bld) [#/Vol] 12.20 10*3/uL High 4.50-11.00 [facility] Comment on above: Performed By: #### L [id number] ####[facility] [address] [place], [place] [address] Huber Prado M.D. [id number] POC GLUCOSE [facility] 024 Glucose [Mass/Vol] 158 mg/dL High 65-[address] [place] [address] Comment on above: Performed By: #### 4 3683 ####[facility] [address] [place] [address] [id number] [facility] Glucose [Mass/Vol] 146 mg/dL High [address] [place] [address] Comment on above: Performed By: #### 5 3381 ####[facility] [address] [place] [address] [id number] [facility] Glucose [Mass/Vol] 150 mg/dL High [facility]99 [facility] Comment on above: Performed By: #### 9 3141 ####[facility] [address] [place] [address] [id number] [facility] Glucose [Mass/Vol] 149 mg/dL High [address] [place] [address] Comment on above: Performed By: #### 4 6932 ####[facility] [address] [place] [address] [id number] [facility] Glucose [Mass/Vol] 164 mg/dL High [address] [place] [address] Comment on above: Performed By: #### 4 6932 ####[facility] [address] [place] [address] [id number] [facility] Glucose [Mass/Vol] 164 mg/dL [address] Comment on above: Performed By: #### 4 6932 ####[facility] [address] [place] [address] [id number] [facility] Glucose [Mass/Vol] 182 mg/dL [address] Comment on above: Performed By: #### 4 6932 ####[facility] [address] [place] [address] [id number] [facility] Glucose [Mass/Vol] 183 mg/dL [address] Comment on above: Performed By: #### 4 6932 ####[facility] [address] [place] [address] [id number] [facility] Glucose [Mass/Vol] 192 mg/dL [address] Comment on above: Performed By: #### 4 6932 ####[facility] [address] [place] [address] [id number] [facility] TRIGLYCERIDESon 04-26-2024 Triglyceride [Mass/Vol] 520 mg/dL High 30-150 [facility] Comment on above: Result Comment: [employer] onal Cholesterol Education Program Guidelines: TriglycerideNormal: <150 mg/dLBorderline High: 150-199 mg/dLHigh: 200-499 mg/dLVery High: greater than or equal to 500 mg/dL Performed By: #### 4 6606 ####[facility] [address] [place] [address] Huber Prado M.D. [id number] BASIC METABOLIC PANELon 08-2 Anion gap [Moles/Vol] 23 mmol/L High 10-20 [facility] Comment on above: Order Comment: [facility] Services has implemented the eGFR calculation approach that does not have a coefficient for race that conforms to the NKF-ASN Task Force Recommendations. Performed By: #### 4 6124 ####[facility] [address] [place] [address] Huber Prado M.D. [id number] Calcium [Mass/Vol] 8.9 mg/dL Normal 8.4-10.2 [facility] Comment on above: Order Comment: [facility] Services has implemented the eGFR calculation approach that does not have a coefficient for race that conforms to the NKF-ASN Task Force Recommendations. Performed By: #### 4 6124 ####[facility] [address] [place] [address] Huber Prado M.D. [id number] Chloride [Moles/Vol] 100 mmol/L Normal 98-108 [facility] Comment on above: Order Comment: [facility] Services has implemented the eGFR calculation approach that does not have a coefficient for race that conforms to the NKF-ASN Task Force Recommendations. Performed By: #### 4 6124 ####[facility] [address] [place], [place] [address] Huber Prado M.D. [id number] Creatinine [Mass/Vol] 3.99 mg/dL High 0.40-1.10 [facility] Comment on above: Order Comment: [facility] Services has implemented the eGFR calculation approach that does not have a coefficient for race that conforms to the NKF-ASN Task Force Recommendations. Performed By: #### 4 6124 ####[facility] [address] [place] [address] Huber Prado M.D. [id number] EGFR 14 mL/min/1.73 m2 Low >=60 [facility] Comment on above: Order Comment: [facility] Services has implemented the eGFR calculation approach that does not have a coefficient for race that conforms to the NKF-ASN Task Force Recommendations. Result Comment: Neema mated GFR was calculated using the 2020 CKD-EPI creatinine equation. Performed By: #### 4 6124 ####[facility] [address] [place], [place] [address] Huber Prado M.D. [id number] Glucose [Mass/Vol] 219 mg/dL High 65-99 [facility] Comment on above: Order Comment: [facility] Services has implemented the eGFR calculation approach that does not have a coefficient for race that conforms to the NKF-ASN Task Force Recommendations. Performed By: #### 4 6124 ####[facility] [address] [place], [place] [address] Huber Prado M.D. [id number] HCO3 (Bld) [Moles/Vol] 29 mmol/L Normal 21-32 [facility] Comment on above: Order Comment: [facility] Services has implemented the eGFR calculation approach that does not have a coefficient for race that conforms to the NKF-ASN Task Force Recommendations. Performed By: #### 4 6124 ####[facility] [address] [place], [place] [address] Huber Prado M.D. [id number] Potassium [Moles/Vol] 5.1 mmol/L Normal 3.5-5.1 [facility] Comment on above: Order Comment: [facility] Services has implemented the eGFR calculation approach that does not have a coefficient for race that conforms to the NKF-ASN Task Force Recommendations. Performed By: #### 4 6124 ####[facility] [address] [place], [place] [address] Huber Prado M.D. [id number] Sodium [Moles/Vol] 147 mmol/L High 135-145 [facility] Comment on above: Order Comment: [facility] Services has implemented the eGFR calculation approach that does not have a coefficient for race that conforms to the NKF-ASN Task Force Recommendations. Performed By: #### 4 6124 ####[facility] [address] [place] [address] Huber Prado M.D. [id number] Urea nitrogen [Mass/Vol] 61 mg/dL High 8-25 [facility] Comment on above: Order Comment: [facility] Services has implemented the eGFR calculation approach that does not have a coefficient for race that conforms to the NKF-ASN Task Force Recommendations. Performed By: #### 4 6124 ####[facility] [address] [place], [place] [address] Huber Prado M.D. [id number] Urea nitrogen/Creatinine [Mass ratio] 15.3 mg/mg Normal 10.0-20.0 [facility] Comment on above: Order Comment: [facility] Services has implemented the eGFR calculation approach that does not have a coefficient for race that conforms to the NKF-ASN Task Force Recommendations. Performed By: #### 4 6124 ####[facility] [address] [place] [address] Huber Prado M.D. [id number] BETA-HYDROXYBUTYRATEon 04-25 BETA-HYDROXYBUTYRATE 0.9 mmol/L High 0.0-0.3 [facility] Comment on above: Performed By: #### 4 5139 ####[facility] [address] [place], [place] [address] Huber Prado M.D. [id number] BRONCHIAL AEROBIC CULTUREon 04-25-2024 BRONCHIAL AEROBIC CULTURE AEROBIC CULTURE Normal Fang after 48 hrs GRAM STAIN RESULT Few Mixed Fang Moderate WBC Few Epithelial Cells Normal [facility] Comment on above: Performed By: #### 4 4017 ####[facility] [address] [place] [address] Huber Prado M.D. [id number] BRONCHIAL AFB CULTUREon 03-31 BRONCHIAL AFB CULTURE AFB CULTURE No Growth of Acid Fast Bacilli after 8 Weeks AFB STAIN (2018) No Acid Fast Bacilli Seen Normal [facility] Comment on above: Performed By: #### 4 4208 ####[facility] [address] [place], [place] [address] Huber Prado M.D. [id number] BRONCHIAL FUNGUS CULTUREon 0 04-25-2024 BRONCHIAL FUNGUS CULTURE FUNGUS CULTURE No Fungus Isolated At 4 Weeks FUNGAL SMEAR No Fungal or Yeast Elements Normal [facility] Comment on above: Performed By: #### 4 4211 ####[facility] [address] [place], [place] [address] Huber Prado M.D. [id number] BRONCHIAL LEGIONELLA CULTURE on 04-25-2024 BRONCHIAL LEGIONELLA CULTURE LEGIONELLA CULTURE No Legionella species isolated [facility] Comment on above: Performed By: #### 4 4212 ####[facility] [address] [place], [place] [address] Huber Prado M.D. [id number] CONSULTon 04-25-2024 CONSULT [facility] CONSULT Normal [facility] CONSULT Normal [facility] LACTIC ACID, PLASMAon 2023 LACTIC ACID, PLASMA 1.8 mmol/L Normal 0.6-2.[address] [facility] Comment on above: Performed By: #### 4 6053 ####[facility] [address] [place], [place] [address] Huber Prado M.D. [id number] MRSA DNA AMPLIFIED PROBEon 0 04-25-2024 MRSA DNA AMPLIFIED PROBE Not detected Normal Not Detected, MRSA NEGATIVE [facility] Comment on above: Performed By: #### 4 8061 ####[facility] [address] [place], [place] [address] Huber Prado M.D. [id number] PNEUMOCYSTIS SMEAR BY DFYanique 04-25-2024 PNEUMOCYSTIS SMEAR BY DFA PNEUMOCYSTIS SMEAR, DFA Negative for Pneumocystis jirovecii Normal Negative for Pneumocystis jirovecii [facility] Comment on above: Performed By: #### 4 4100 ####[facility] [address] [place] [address] Huber Prado M.D. [id number] POC ARTERIAL BLOOD GAS PANEL -[facility] 04-25-2024 BASE EXCESS, ARTERIAL 8.1 High -2.0-2.0 [facility] Comment on above: Performed By: #### 4 8716 ####[facility] [address] [place] [address] [id number] [facility] CALCIUM IONIZED 4.5 mg/dL Normal 4.5-5.3 [facility] Comment on above: Performed By: #### 4 8716 ####[facility] [address] [place] [address] [id number] [facility] CARBOXYHEMOGLOBIN 1.5 % of total Hb Normal <=1.5 [facility] Comment on above: Result Comment: Refe rence Ranges:[facility] Non-smokers: <1.5%Smokers: 1.5-5.0%Heavy Smokers: 5.0-9.0% Performed By: #### 4 7939 ####[facility] [address] [place] [address] [id number] [facility] Chloride [Moles/Vol] 104 mmol/L Normal 98-108 [facility] Comment on above: Performed By: #### 4 7359 ####[facility] [address] [place] [address] [id number] [facility] FIO2 50 Normal [facility] Comment on above: Performed By: #### 4 8760 ####[facility] [address] [place] [address] [id number] [facility] Glucose [Mass/Vol] 209 mg/dL High 65-99 [facility] Comment on above: Performed By: #### 4 8716 ####[facility] [address] [place] [address] [id number] [facility] HCO3 (Bld) [Moles/Vol] 30.8 mmol/L High 22.0-26.0 [facility] Comment on above: Performed By: #### 4 8716 ####[facility] [address] [place] [address] [id number] [facility] Hematocrit (Bld) [Volume fraction] 34.0 % Low 36.0-46.0 [facility] Comment on above: Performed By: #### 4 4216 ####[facility] [address] [place] [address] [id number] [facility] Hemoglobin (Bld) [Mass/Vol] 11.1 g/dL Low 12.0-16.0 [facility] [facility] Comment on above: Performed By: #### 4 16 ####[facility] [address] [place] [address] [id number] [facility] LACTIC ACID, WHOLE BLOOD 1.8 mmol/L Normal 0.6-2.0 [facility] Comment on above: Performed By: #### 4 1616 ####[facility] [address] [place] [address] [id number] [facility] METHEMOGLOBIN < Normal 0.0-2.0 [facility] Comment on above: Performed By: #### 4 0416 ####[facility] [address] [place] [address] [id number] [facility] O2HB 98.1 % High 94.0-98.0 [facility] Comment on above: Performed By: #### 4 9317 ####[facility] [address] [place] [address] [id number] [facility] Oxygen saturation in Blood 99.9 % High 92.0-99.0 [facility] Comment on above: Performed By: #### 4 5572 ####[facility] [address] [place] [address] [id number] [facility] PCO2 ARTERIAL 34.8 mm Hg Low 35.0-45.0 [facility] Comment on above: Performed By: #### 4 8716 ####[facility] [address] [place] [address] [id number] [facility] PEEP RAD 8 [facility] Comment on above: Performed By: #### 4 8716 ####[facility] [address] [place] [address] [id number] [facility] PH ARTERIAL 7.56 High 7.35-7.45 [facility] Comment on above: Performed By: #### 4 8716 ####[facility] [address] [place] [address] [id number] [facility] PO2 ARTERIAL 151 mm Hg High 80-100 [facility] Comment on above: Performed By: #### 4 8716 ####[facility] [address] [place] [address] [id number] [facility] Potassium [Moles/Vol] 4.0 mmol/L Normal 3.5-5.1 [facility] Comment on above: Performed By: #### 4 8716 ####[facility] [address] [place] [address] [id number] [facility] RESP RATE RAD 30 [facility] Comment on above: Performed By: #### 4 8716 ####[facility] [address] [place] [address] [id number] [facility] RESULT NOTIFICATION Critical results giv en to:TETE MIN [facility] Comment on above: Performed By: #### 4 8716 ####[facility] [address] [place] [address] [id number] [facility] Sodium [Moles/Vol] 151 mmol/L High 135-145 [facility] Comment on above: Performed By: #### 4 8716 ####[facility] [address] [place] [address] [id number] [facility] POC GLUCOSE - [facility] 024 Glucose [Mass/Vol] 211 mg/dL High [address] [place] [address] Comment on above: Performed By: #### 4 6932 ####[facility] [address] [place] [address] [id number] [facility] Glucose [Mass/Vol] 238 mg/dL [address] Comment on above: Performed By: #### 4 6932 ####[facility] [address] [place] [address] [id number] [facility] Glucose [Mass/Vol] 264 mg/dL [address] Comment on above: Performed By: #### 4 6932 ####[facility] [address] [place] [address] [id number] [facility] Glucose [Mass/Vol] 206 mg/dL [address] Comment on above: Performed By: #### 4 6932 ####[facility] [address] [place] [address] [id number] [facility] Glucose [Mass/Vol] 187 mg/dL [address] Comment on above: Performed By: #### 4 6932 ####[facility] [address] [place] [address] [id number] [facility] Glucose [Mass/Vol] 163 mg/dL [address] Comment on above: Performed By: #### 4 6932 ####[facility] [address] [place] [address] [id number] [facility] RESPIRATORY PCR PANELon 03-31 RESPIRATORY PCR PANEL Normal Not Detected [facility] Comment on above: Performed By: #### L [id number] ####[facility] [address] [place] [address] Huber Prado M.D. [id number] TRIGLYCERIDESon 04-25-2024 Triglyceride [Mass/Vol] 575 mg/dL High 30-150 [facility] Comment on above: Result Comment: [facility] Cholesterol Education Program Guidelines: TriglycerideNormal: <150 mg/dLBorderline High: 150-199 mg/dLHigh: 200-499 mg/dLVery High: greater than or equal to 500 mg/dL Performed By: #### 4 6606 ####[facility] [address] [place] [address] Huber Prado M.D. [id number] XR CHEST PA/APon 04-25-2024 XR CHEST PA/AP Normal [facility] Comment on above: Order Comment: Injur y/Trauma or Illness?:Illness/OtherHow long have you had these symptoms (acute/chronic)?:UnknownReason for exam?:ETT placementHistory of cancer?:UnknownSurgeries, chemotherapy, or radiation?:YesType of Exam?:Subsequent/Follow-upAdditional signs and symptoms?:/ CBC WITH AUTO DIFFERENTIALon 04-24-2024 AUTO NRBC 0.0 % Normal [facility] Comment on above: Performed By: #### Tasha [id number] ####[facility] [address] [place] [address] Huber Prado M.D. [id number] AUTO NRBC ABS COUNT 0.00 K/mcL Normal 0.00-0.[address] [facility] Comment on above: Performed By: #### Tasha [id number] ####[facility] [address] [place] [address] Huber Prado M.D. [id number] BASOPHILS ABSOLUTE COUNT 0.06 K/mcL Normal 0.00-0.30 [facility] Comment on above: Performed By: #### L [id number] ####[facility] [address] [place] [address] Huber Prado M.D. [id number] Basophils/100 WBC (Bld) 0.5 % Normal [facility] Comment on above: Performed By: #### L [id number] ####[facility] [address] [place] [address] Huber Prado M.D. [id number] Eosinophils (Bld) [#/Vol] 0.05 10*3/uL Normal 0.00-0.50 [facility] Comment on above: Performed By: #### Tasha [id number] ####[facility] [address] [place] [address] Huber Prado M.D. [id number] Eosinophils/100 WBC (Bld) 0.4 % Normal [facility] Comment on above: Performed By: #### Tasha [id number] ####[facility] [address] [place] [address] Huber Prado M.D. [id number] Erythrocyte distribution width (RBC) [Ratio] 14.3 % Normal 11.6-14.8 [facility] Comment on above: Performed By: #### Tasha [id number] ####[facility] [address] [place] [address] Huber Prado M.D. [id number] Hematocrit (Bld) [Volume fraction] 39.2 % Normal 36.0-46.0 [facility] Comment on above: Performed By: #### Tasha [id number] ####[facility] [address] [place] [address] Huber Prado M.D. [id number] Hemoglobin (Bld) [Mass/Vol] 11.5 g/dL Low 12.0-16.0 [facility] Comment on above: Performed By: #### Tasha [id number] ####[facility] [address] [place] [address] Huber Prado M.D. [id number] IG ABSOLUTE 0.07 K/mcL Normal 0.00-0.30 [facility] Comment on above: Performed By: #### L [id number] ####[facility] [address] [place] [address] Huber Prado M.D. [id number] IG PERCENT 0.60 % Normal [facility] Comment on above: Result Comment: The IG parameter is the percentage of metamyelocytes, myelocytes and promyelocytes. An immature granulocyte count (IG) of 1% or more suggests the possibility of infection, an IG count of 3% is very likely related to an infection. Performed By: #### Tasha [id number] ####[facility] [address] [place] [address] Huber Prado M.D. [id number] Lymphocytes (Bld) [#/Vol] 0.66 10*3/uL Low 0.90-4.00 [facility] Comment on above: Performed By: #### Tasha [id number] ####[facility] [address] [place] [address] Huber Prado M.D. [id number] Lymphocytes/100 WBC (Bld) 5.3 % Normal [facility] Comment on above: Performed By: #### Tasha [id number] ####[facility] [address] [place] [address] Huber Prado M.D. [id number] MCH (RBC) [Entitic mass] 29.7 pg Normal 26.0-34.0 [facility] Comment on above: Performed By: #### L [id number] ####[facility] [address] [place] [address] uHber Prado M.D. [id number] MCV (RBC) [Entitic vol] 101.3 fL High 80.0-100.0 [facility] Comment on above: Performed By: #### L [id number] ####[facility] [address] [place] [address] Huber Prado M.D. [id number] MEAN CORPUSCULAR HEMOGLOBIN CONC 29.3 g/dL Low 31.0-37.0 [facility] Comment on above: Performed By: #### L [id number] ####[facility] [address] [place] [address] Huber Prado M.D. [id number] Monocytes (Bld) [#/Vol] 1.42 10*3/uL High 0.30-0.90 [facility] Comment on above: Performed By: #### L [id number] ####[facility] [address] [place] [address] Huber Prado M.D. [id number] Monocytes/100 WBC (Bld) 11.5 % Normal [facility] Comment on above: Performed By: #### Tasha [id number] ####[facility] [address] [place] [address] Huber Prado M.D. [id number] NEUTROPHILS ABSOLUTE COUNT 10.11 K/mcL High 1.70-7.00 [facility] Comment on above: Performed By: #### Tasha [id number] ####[facility] [address] [place] [address] Huber Prado M.D. [id number] Neutrophils/100 WBC (Bld) 81.7 % Normal [facility] Comment on above: Performed By: #### Tasha [id number] ####[facility] [address] [place] [address] Huber Prado M.D. [id number] Platelet mean volume (Bld) [Entitic vol] 11.1 fL Normal 9.4-12.4 [facility] Comment on above: Performed By: #### L [id number] ####[facility] [address] [place], [place] [address] Huber Prado M.D. [id number] Platelets (Bld) [#/Vol] 180 10*3/uL Normal 150-400 [facility] Comment on above: Performed By: #### L [id number] ####[facility] [address] [place] [address] Huber Prado M.D. [id number] RBC (Bld) [#/Vol] 3.87 10*6/uL Low 4.00-5.[address] [facility] Comment on above: Performed By: #### L [id number] ####[facility] [address] [place] [address] Huber Prado M.D. [id number] WBC (Bld) [#/Vol] 12.37 10*3/uL High 4.50-11.00 [facility] Comment on above: Performed By: #### L [id number] ####[facility] [address] [place] [address] Huber Prado M.D. [id number] CHEM 704-24-2024 Anion gap [Moles/Vol] 20 mmol/L Normal 10-20 [facility] Comment on above: Order Comment: [facility] has implemented the eGFR calculation approach that does not have a coefficient for race that conforms to the NKF-ASN Task Force Recommendations. Performed By: #### 4 6953 ####[facility] [address] [place] [address] Huber Prado M.D. [id number] Chloride [Moles/Vol] 102 mmol/L Normal 98-108 [facility] Comment on above: Order Comment: [facility] has implemented the eGFR calculation approach that does not have a coefficient for race that conforms to the NKF-ASN Task Force Recommendations. Performed By: #### 4 6953 ####[facility] [address] [place] [address] Huber Prado M.D. [id number] Creatinine [Mass/Vol] 3.63 mg/dL High 0.40-1.10 [facility] Comment on above: Order Comment: [facility] has implemented the eGFR calculation approach that does not have a coefficient for race that conforms to the NKF-ASN Task Force Recommendations. Performed By: #### 4 6953 ####[facility] [address] [place] [address] Huber Prado M.D. [id number] EGFR 16 mL/min/1.73 m2 Low >=60 [facility] Comment on above: Order Comment: [facility] has implemented the eGFR calculation approach that does not have a coefficient for race that conforms to the NKF-ASN Task Force Recommendations. Result Comment: Neema mated GFR was calculated using the 2020 CKD-EPI creatinine equation. Performed By: #### 4 6953 ####[facility] [address] [place], [place] [address] Huber Prado M.D. [id number] Glucose [Mass/Vol] 154 mg/dL High 65-99 [facility] Comment on above: Order Comment: [facility] has implemented the eGFR calculation approach that does not have a coefficient for race that conforms to the NKF-ASN Task Force Recommendations. Performed By: #### 4 6953 ####[facility] [address] [place] [address] Huber Prado M.D. [id number] HCO3 (Bld) [Moles/Vol] 34 mmol/L High 21-32 [facility] Comment on above: Order Comment: [facility] has implemented the eGFR calculation approach that does not have a coefficient for race that conforms to the NKF-ASN Task Force Recommendations. Performed By: #### 4 6953 ####[facility] [address] [place], [place] [address] Huber Prado M.D. [id number] Potassium [Moles/Vol] 4.5 mmol/L Normal 3.5-5.1 [facility] Comment on above: Order Comment: [facility] has implemented the eGFR calculation approach that does not have a coefficient for race that conforms to the NKF-ASN Task Force Recommendations. Performed By: #### 4 6953 ####[facility] [address] [place] [address] Huber Prado M.D. [id number] Sodium [Moles/Vol] 151 mmol/L High 135-145 [facility] Comment on above: Order Comment: [facility] has implemented the eGFR calculation approach that does not have a coefficient for race that conforms to the NKF-ASN Task Force Recommendations. Performed By: #### 4 6953 ####[facility] [address] [place] [address] Huber Prado M.D. [id number] Urea nitrogen [Mass/Vol] 54 mg/dL High 8-25 [facility] Comment on above: Order Comment: [facility] has implemented the eGFR calculation approach that does not have a coefficient for race that conforms to the NKF-ASN Task Force Recommendations. Performed By: #### 4 6953 ####[facility] [address] [place] [address] Huber Prado M.D. [id number] Urea nitrogen/Creatinine [Mass ratio] 14.9 mg/mg Normal 10.0-20.0 [facility] Comment on above: Order Comment: [facility] has implemented the eGFR calculation approach that does not have a coefficient for race that conforms to the NKF-ASN Task Force Recommendations. Performed By: #### 4 6953 ####[facility] [address] [place] [address] Huber Prado M.D. [id number] Anion gap [Moles/Vol] 19 mmol/L Normal 10-20 [facility] Comment on above: Order Comment: [facility] has implemented the eGFR calculation approach that does not have a coefficient for race that conforms to the NKF-ASN Task Force Recommendations. Performed By: #### 4 6953 ####[facility] [address] [place] [address] Huber Prado M.D. [id number] Chloride [Moles/Vol] 103 mmol/L Normal 98-108 [facility] Comment on above: Order Comment: [facility] has implemented the eGFR calculation approach that does not have a coefficient for race that conforms to the NKF-ASN Task Force Recommendations. Performed By: #### 4 6953 ####[facility] [address] [place], [place] [address] Huber rPado M.D. [id number] Creatinine [Mass/Vol] 3.29 mg/dL High 0.40-1.10 [facility] Comment on above: Order Comment: [facility] has implemented the eGFR calculation approach that does not have a coefficient for race that conforms to the NKF-ASN Task Force Recommendations. Performed By: #### 4 6953 ####[facility] [address] [place], [place] [address] Huber Prado M.D. [id number] EGFR 18 mL/min/1.73 m2 Low >=60 [facility] Comment on above: Order Comment: [facility] has implemented the eGFR calculation approach that does not have a coefficient for race that conforms to the NKF-ASN Task Force Recommendations. Result Comment: Neema mated GFR was calculated using the 2020 CKD-EPI creatinine equation. Performed By: #### 4 6953 ####[facility] [address] [place] [address] Huber Prado M.D. [id number] Glucose [Mass/Vol] 123 mg/dL High 65-99 [facility] Comment on above: Order Comment: [facility] has implemented the eGFR calculation approach that does not have a coefficient for race that conforms to the NKF-ASN Task Force Recommendations. Performed By: #### 4 6953 ####[facility] [address] [place], [place] [address] Huber Prado M.D. [id number] HCO3 (Bld) [Moles/Vol] 34 mmol/L High 21-32 [facility] Comment on above: Order Comment: [facility] has implemented the eGFR calculation approach that does not have a coefficient for race that conforms to the NKF-ASN Task Force Recommendations. Performed By: #### 4 6953 ####[facility] [address] [place], [place] [address] Huber Prado M.D. [id number] Potassium [Moles/Vol] 4.2 mmol/L Normal 3.5-5.1 [facility] Comment on above: Order Comment: [facility] has implemented the eGFR calculation approach that does not have a coefficient for race that conforms to the NKF-ASN Task Force Recommendations. Performed By: #### 4 6953 ####[facility] [address] [place], [place] [address] Huber Prado M.D. [id number] Sodium [Moles/Vol] 152 mmol/L High 135-145 [facility] Comment on above: Order Comment: [facility] has implemented the eGFR calculation approach that does not have a coefficient for race that conforms to the NKF-ASN Task Force Recommendations. Performed By: #### 4 6953 ####[facility] [address] [place], [place] [address] Huber Prado M.D. [id number] Urea nitrogen [Mass/Vol] 53 mg/dL High 8-25 [facility] Comment on above: Order Comment: [facility] has implemented the eGFR calculation approach that does not have a coefficient for race that conforms to the NKF-ASN Task Force Recommendations. Performed By: #### 4 6953 ####[facility] [address] [place], [place] [address] Huber Prado M.D. [id number] Urea nitrogen/Creatinine [Mass ratio] 16.1 mg/mg Normal 10.0-20.0 [facility] Comment on above: Order Comment: [facility] has implemented the eGFR calculation approach that does not have a coefficient for race that conforms to the NKF-ASN Task Force Recommendations. Performed By: #### 4 6953 ####[facility] [address] [place], [place] [address] Huber Prado M.D. [id number] CONSULTon 04-24-2024 CONSULT Normal [facility] CONSULT Normal [facility] ELECTROLYTES, URINEon 2023 CHLORIDE UR 39 mmol/L Normal [facility] Comment on above: Order Comment: No es tablished reference range. Performed By: #### 4 5532 ####[facility] [address] [place], [place] [address] Huber Prado M.D. [id number] POTASSIUM UR 40.8 mmol/L [facility] Comment on above: Order Comment: No es tablished reference range. Performed By: #### 4 5532 ####[facility] [address] [place], [place] [address] Huber Prado M.D. [id number] Sodium (U) [Moles/Vol] 30 mmol/L Normal [facility] Comment on above: Order Comment: No es tablished reference range. Performed By: #### 4 5532 ####[facility] [address] [place], [place] [address] Huber Prado M.D. [id number] OSMOLALITY, URINEon 04-24-20 24 OSMOLALITY URINE 265 mOsm/kg Normal [facility] Comment on above: Order Comment: No es tablished reference range. Performed By: #### 4 6233 ####[facility] [address] [place], [place] [address] Huber Prado M.D. [id number] VANCOMYCIN LEVEL, RANDOMon 0 04-24-2024 VANCOMYCIN RANDOM 30.6 mcg/mL Normal [facility] Comment on above: Order Comment: As of 05/2022 vancomycin dosing for [facility] inpatients will be done by Bayesian dosing software rather than off traditional trough values. Please contact the site specific inpatient pharmacy before making dose changes off of trough values alone for admitted patients.No established reference range. Performed By: #### 4 6651 ####[facility] [address] [place] [address] Huber Prado M.D. [id number] CREATININE, SERUMon 04-23-20 24 Creatinine [Mass/Vol] 1.62 mg/dL High 0.40-1.10 [facility] Comment on above: Order Comment: [facility] has implemented the eGFR calculation approach that does not have a coefficient for race that conforms to the NKF-ASN Task Force Recommendations. Performed By: #### 4 5336 ####[facility] [address] [place] [address] Huber Prado M.D. [id number] EGFR 43 mL/min/1.73 m2 Low >=60 [facility] Comment on above: Order Comment: [facility] has implemented the eGFR calculation approach that does not have a coefficient for race that conforms to the NKF-ASN Task Force Recommendations. Result Comment: Neema mated GFR was calculated using the 2020 CKD-EPI creatinine equation. Performed By: #### 4 5336 ####[facility] [address] [place] [address] Huber Prado M.D. [id number] VANCOMYCIN LEVEL, RANDOMon 0 04-23-2024 VANCOMYCIN RANDOM 36.5 mcg/mL Normal [facility] Comment on above: Order Comment: As of 05/2022 vancomycin dosing for [facility] inpatients will be done by Bayesian dosing software rather than off traditional trough values. Please contact the site specific inpatient pharmacy before making dose changes off of trough values alone for admitted patients.No established reference range. Performed By: #### 4 6651 ####[facility] [address] [place] [address] Huber Prado M.D. [id number] BASIC METABOLIC PANELon 08-2 Anion gap [Moles/Vol] 14 mmol/L Normal 10-20 [facility] Comment on above: Order Comment: [facility] has implemented the eGFR calculation approach that does not have a coefficient for race that conforms to the NKF-ASN Task Force Recommendations. Performed By: #### 4 6124 ####[facility] [address] [place] [address] 42400 Huber Prado M.D. [id number] Calcium [Mass/Vol] 9.3 mg/dL Normal 8.4-10.2 [facility] Comment on above: Order Comment: [facility] Services has implemented the eGFR calculation approach that does not have a coefficient for race that conforms to the NKF-ASN Task Force Recommendations. Performed By: #### 4 6124 ####[facility] [address] [place], [place] [address] Huber Prado M.D. [id number] Chloride [Moles/Vol] 101 mmol/L Normal 98-108 [facility] Comment on above: Order Comment: [facility] Services has implemented the eGFR calculation approach that does not have a coefficient for race that conforms to the NKF-ASN Task Force Recommendations. Performed By: #### 4 6124 ####[facility] [address] [place] [address] 67478 Huber Prado M.D. [id number] Creatinine [Mass/Vol] 0.26 mg/dL Low 0.40-1.10 [facility] Comment on above: Order Comment: [facility] Services has implemented the eGFR calculation approach that does not have a coefficient for race that conforms to the NKF-ASN Task Force Recommendations. Performed By: #### 4 6124 ####[facility] [address] [place] [address] 37227 Huber Prado M.D. [id number] EGFR 148 mL/min/1.73 m2 Normal >=60 [facility] Comment on above: Order Comment: [facility] Services has implemented the eGFR calculation approach that does not have a coefficient for race that conforms to the NKF-ASN Task Force Recommendations. Result Comment: Neema mated GFR was calculated using the 2020 CKD-EPI creatinine equation. Performed By: #### 4 6124 ####[facility] [address] [place] [address] 96468 Huber Prado M.D. [id number] Glucose [Mass/Vol] 160 mg/dL High 65-99 [facility] Comment on above: Order Comment: [facility] Services has implemented the eGFR calculation approach that does not have a coefficient for race that conforms to the NKF-ASN Task Force Recommendations. Performed By: #### 4 6124 ####[facility] [address] [place], [place] [address] Huber Prado M.D. [id number] HCO3 (Bld) [Moles/Vol] 36 mmol/L High 21-32 [facility] Comment on above: Order Comment: [facility] Services has implemented the eGFR calculation approach that does not have a coefficient for race that conforms to the NKF-ASN Task Force Recommendations. Performed By: #### 4 6124 ####[facility] [address] [place] [address] 16869 Huber Prado M.D. [id number] Potassium [Moles/Vol] 3.5 mmol/L Normal 3.5-5.1 [facility] Comment on above: Order Comment: [facility] Services has implemented the eGFR calculation approach that does not have a coefficient for race that conforms to the NKF-ASN Task Force Recommendations. Performed By: #### 4 6124 ####[facility] [address] [place] [address] 07146 Huber Prado M.D. [id number] Sodium [Moles/Vol] 147 mmol/L High 135-145 [facility] Comment on above: Order Comment: [facility] Services has implemented the eGFR calculation approach that does not have a coefficient for race that conforms to the NKF-ASN Task Force Recommendations. Performed By: #### 4 6124 ####[facility] [address] [place] [address] 09309 Huber Prado M.D. [id number] Urea nitrogen [Mass/Vol] 17 mg/dL Normal 8-25 [facility] Comment on above: Order Comment: [facility] Services has implemented the eGFR calculation approach that does not have a coefficient for race that conforms to the NKF-ASN Task Force Recommendations. Performed By: #### 4 6124 ####[facility] [address] [place], [place] [address] Huber Prado M.D. [id number] Urea nitrogen/Creatinine [Mass ratio] 65.4 mg/mg High 10.0-20.0 [facility] Comment on above: Order Comment: [facility] Services has implemented the eGFR calculation approach that does not have a coefficient for race that conforms to the NKF-ASN Task Force Recommendations. Performed By: #### 4 6124 ####[facility] [address] [place], [place] [address] Huber Prado M.D. [id number] CBC WITH AUTO DIFFERENTIALon 04-22-2024 AUTO NRBC 0.0 % Normal [facility] Comment on above: Performed By: #### L [id number] ####[facility] [address] [place], [place] [address] Huber Prado M.D. [id number] AUTO NRBC ABS COUNT 0.00 K/mcL Normal 0.00-0.[address] [facility] Comment on above: Performed By: #### L [id number] ####[facility] [address] [place], [place] [address] Huber Prado M.D. [id number] BASOPHILS ABSOLUTE COUNT 0.09 K/mcL Normal 0.00-0.30 [facility] Comment on above: Performed By: #### L [id number] ####[facility] [address] [place], [place] [address] Huber Prado M.D. [id number] Basophils/100 WBC (Bld) 1.1 % Normal [facility] Comment on above: Performed By: #### L [id number] ####[facility] [address] [place] [address] Huber Prado M.D. [id number] Eosinophils (Bld) [#/Vol] 0.17 10*3/uL Normal 0.00-0.50 [facility] Comment on above: Performed By: #### Tasha [id number] ####[facility] [address] [place] [address] Huber Prado M.D. [id number] Eosinophils/100 WBC (Bld) 2.0 % Normal [facility] Comment on above: Performed By: #### Tasha [id number] ####[facility] [address] [place] [address] Huber Prado M.D. [id number] Erythrocyte distribution width (RBC) [Ratio] 14.6 % Normal 11.6-14.8 [facility] Comment on above: Performed By: #### L [id number] ####[facility] [address] [place], [place] [address] Huber Prado M.D. [id number] Hematocrit (Bld) [Volume fraction] 40.6 % Normal 36.0-46.0 [facility] Comment on above: Performed By: #### L [id number] ####[facility] [address] [place], [place] [address] Huber Prado M.D. [id number] Hemoglobin (Bld) [Mass/Vol] 11.8 g/dL Low 12.0-16.0 [facility] Comment on above: Performed By: #### L [id number] ####[facility] [address] [place], [place] [address] Huber Prado M.D. [id number] IG ABSOLUTE 0.05 K/mcL Normal 0.00-0.30 [facility] Comment on above: Performed By: #### L [id number] ####[facility] [address] [place] [address] Huber Prado M.D. [id number] IG PERCENT 0.60 % Normal [facility] Comment on above: Result Comment: The IG parameter is the percentage of metamyelocytes, myelocytes and promyelocytes. An immature granulocyte count (IG) of 1% or more suggests the possibility of infection, an IG count of 3% is very likely related to an infection. Performed By: #### Tasha [id number] ####[facility] [address] [place] [address] Huber Prado M.D. [id number] Lymphocytes (Bld) [#/Vol] 1.94 10*3/uL Normal 0.90-4.00 [facility] Comment on above: Performed By: #### Tasha [id number] ####[facility] [address] [place] [address] Huber Prado M.D. [id number] Lymphocytes/100 WBC (Bld) 22.7 % Normal [facility] Comment on above: Performed By: #### L [id number] ####[facility] [address] [place], [place] [address] Huber Prado M.D. [id number] MCH (RBC) [Entitic mass] 29.1 pg Normal 26.0-34.0 [facility] Comment on above: Performed By: #### L [id number] ####[facility] [address] [place], [place] [address] Huber Prado M.D. [id number] MCV (RBC) [Entitic vol] 100.0 fL Normal 80.0-100.0 [facility] Comment on above: Performed By: #### L [id number] ####[facility] [address] [place] [address] Huber Prado M.D. [id number] MEAN CORPUSCULAR HEMOGLOBIN CONC 29.1 g/dL Low 31.0-37.0 [facility] Comment on above: Performed By: #### L [id number] ####[facility] [address] [place] [address] Huber Prado M.D. [id number] Monocytes (Bld) [#/Vol] 0.46 10*3/uL Normal 0.30-0.90 [facility] Comment on above: Performed By: #### L [id number] ####[facility] [address] [place] [address] Huber Prado M.D. [id number] Monocytes/100 WBC (Bld) 5.4 % Normal [facility] Comment on above: Performed By: #### Tasha [id number] ####[facility] [address] [place] [address] Huber Prado M.D. [id number] NEUTROPHILS ABSOLUTE COUNT 5.83 K/mcL Normal 1.70-7.00 [facility] Comment on above: Performed By: #### L [id number] ####[facility] [address] [place] [address] Huber Prado M.D. [id number] Neutrophils/100 WBC (Bld) 68.2 % Normal [facility] Comment on above: Performed By: #### L [id number] ####[facility] [address] [place], [place] [address] Huber Prado M.D. [id number] Platelet mean volume (Bld) [Entitic vol] 11.5 fL Normal 9.4-12.4 [facility] Comment on above: Performed By: #### L [id number] ####[facility] [address] [place] [address] 08215 Huber Prado M.D. [id number] Platelets (Bld) [#/Vol] 158 10*3/uL Normal 150-400 [facility] Comment on above: Performed By: #### L [id number] ####[facility] [address] [place] [address] 70608 Huber Prado M.D. [id number] RBC (Bld) [#/Vol] 4.06 10*6/uL Normal 4.00-5.[address] [facility] Comment on above: Performed By: #### L [id number] ####[facility] [address] [place] [address] 62209 Huber Prado M.D. [id number] WBC (Bld) [#/Vol] 8.54 10*3/uL Normal 4.50-11.[address] [facility] Comment on above: Performed By: #### L [id number] ####[facility] [address] [place] [address] 74[address] Huber Prado M.D. [id number] POTASSIUM LEVELon 04-22-2024 Potassium [Moles/Vol] 4.3 mmol/L Normal 3.5-5.1 [facility] Comment on above: Result Comment: Slig htly Hemolyzed Performed By: #### 4 6351 ####[facility] [address] [place] [address] 15779 Huber Prado M.D. [id number] VANCOMYCIN LEVEL, RANDOMon 0 04-22-2024 VANCOMYCIN RANDOM 29.0 mcg/mL Normal [facility] Comment on above: Order Comment: As of 05/2022 vancomycin dosing for [facility] inpatients will be done by Bayesian dosing software rather than off traditional trough values. Please contact the site specific inpatient pharmacy before making dose changes off of trough values alone for admitted patients.No established reference range. Performed By: #### 4 6651 ####[facility] [address] [place] [address] 02642 Huber Prado M.D. [id number] VANCOMYCIN RANDOM 58.4 mcg/mL Normal [facility] Comment on above: Order Comment: As of 05/2022 vancomycin dosing for [facility] inpatients will be done by Bayesian dosing software rather than off traditional trough values. Please contact the site specific inpatient pharmacy before making dose changes off of trough values alone for admitted patients.No established reference range. Performed By: #### 4 6651 ####[facility] [address] [place] [address] 64485 Huber Prado M.D. [id number] BASIC METABOLIC PANELon 08-2 Anion gap [Moles/Vol] 16 mmol/L Normal 10-20 [facility] Comment on above: Order Comment: [facility] Services has implemented the eGFR calculation approach that does not have a coefficient for race that conforms to the NKF-ASN Task Force Recommendations. Performed By: #### 4 6124 ####[facility] [address] [place] [address] 13076 Huber Prado M.D. [id number] Calcium [Mass/Vol] 10.5 mg/dL High 8.4-10.2 [facility] Comment on above: Order Comment: [facility] Services has implemented the eGFR calculation approach that does not have a coefficient for race that conforms to the NKF-ASN Task Force Recommendations. Performed By: #### 4 6124 ####[facility] [address] [place] [address] 36942 Huber Prado M.D. [id number] Chloride [Moles/Vol] 102 mmol/L Normal 98-108 [facility] Comment on above: Order Comment: [facility] Services has implemented the eGFR calculation approach that does not have a coefficient for race that conforms to the NKF-ASN Task Force Recommendations. Performed By: #### 4 6124 ####[facility] [address] [place], [place] [address] Huber Prado M.D. [id number] Creatinine [Mass/Vol] 0.34 mg/dL Low 0.40-1.10 [facility] Comment on above: Order Comment: [facility] Laboratory Services has implemented the eGFR calculation approach that does not have a coefficient for race that conforms to the NKF-ASN Task Force Recommendations. Performed By: #### 4 6124 ####[facility] [address] [place], [place] [address] Huber Prado M.D. [id number] EGFR 139 mL/min/1.73 m2 Normal >=60 [facility] Comment on above: Order Comment: [facility] Services has implemented the eGFR calculation approach that does not have a coefficient for race that conforms to the NKF-ASN Task Force Recommendations. Result Comment: Neema mated GFR was calculated using the 2020 CKD-EPI creatinine equation. Performed By: #### 4 6124 ####[facility] [address] [place], [place] [address] Huber Prado M.D. [id number] Glucose [Mass/Vol] 142 mg/dL High 65-99 [facility] Comment on above: Order Comment: [facility] Services has implemented the eGFR calculation approach that does not have a coefficient for race that conforms to the NKF-ASN Task Force Recommendations. Performed By: #### 4 6124 ####[facility] [address] [place], [place] [address] Huber Prado M.D. [id number] HCO3 (Bld) [Moles/Vol] 38 mmol/L High 21-32 [facility] Comment on above: Order Comment: [facility] Services has implemented the eGFR calculation approach that does not have a coefficient for race that conforms to the NKF-ASN Task Force Recommendations. Performed By: #### 4 6124 ####[facility] [address] [place], [place] [address] Huber Prado M.D. [id number] Potassium [Moles/Vol] 3.7 mmol/L Normal 3.5-5.1 [facility] Comment on above: Order Comment: [facility] Services has implemented the eGFR calculation approach that does not have a coefficient for race that conforms to the NKF-ASN Task Force Recommendations. Performed By: #### 4 6124 ####[facility] [address] [place] [address] 83763 Huber Prado M.D. [id number] Sodium [Moles/Vol] 152 mmol/L High 135-145 [facility] Comment on above: Order Comment: [facility] Services has implemented the eGFR calculation approach that does not have a coefficient for race that conforms to the NKF-ASN Task Force Recommendations. Performed By: #### 4 6124 ####[facility] [address] [place], [place] [address] Huber Prado M.D. [id number] Urea nitrogen [Mass/Vol] 15 mg/dL Normal 8-25 [facility] Comment on above: Order Comment: [facility] Services has implemented the eGFR calculation approach that does not have a coefficient for race that conforms to the NKF-ASN Task Force Recommendations. Performed By: #### 4 6124 ####[facility] [address] [place] [address] 21866 Huber Prado M.D. [id number] Urea nitrogen/Creatinine [Mass ratio] 44.1 mg/mg High 10.0-20.0 [facility] Comment on above: Order Comment: [facility] Services has implemented the eGFR calculation approach that does not have a coefficient for race that conforms to the NKF-ASN Task Force Recommendations. Performed By: #### 4 6124 ####[facility] [address] [place] [address] 99320 Huber Prado M.D. [id number] BLOOD CULTURE AEROBIC/ANAERO BICon 04-21-2024 BLOOD CULTURE AEROBIC/ANAEROBIC BLOOD CULTURE No Growth after 5 days Normal [facility] Comment on above: Performed By: #### 4 [id number] ####[facility] [address] [place], [place] [address] Huber Prado M.D. [id number] BLOOD CULTURE AEROBIC/ANAEROBIC BLOOD CULTURE No Growth after 5 days [facility] Comment on above: Performed By: #### 4 4014 ####[facility] [address] [place] [address] Huber Prado M.D. [id number] CBC WITH AUTO DIFFERENTIALon 04-21-2024 AUTO NRBC 0.0 % [facility] Comment on above: Performed By: #### L [id number] ####[facility] [address] [place], [place] [address] Huber Prado M.D. [id number] AUTO NRBC ABS COUNT 0.00 K/mcL Normal 0.00-0.[address] [facility] Comment on above: Performed By: #### L [id number] ####[facility] [address] [place], [place] [address] Huber Prado M.D. [id number] BASOPHILS ABSOLUTE COUNT 0.10 K/mcL Normal 0.00-0.30 [facility] Comment on above: Performed By: #### L [id number] ####[facility] [address] [place], [place] [address] Huber Prado M.D. [id number] Basophils/100 WBC (Bld) 0.9 % Normal [facility] Comment on above: Performed By: #### L [id number] ####[facility] [address] [place], [place] [address] Huber Prado M.D. [id number] Eosinophils (Bld) [#/Vol] 0.06 10*3/uL Normal 0.00-0.50 [facility] Comment on above: Performed By: #### L [id number] ####[facility] [address] [place] [address] Huber Prado M.D. [id number] Eosinophils/100 WBC (Bld) 0.5 % Normal [facility] Comment on above: Performed By: #### L [id number] ####[facility] [address] [place] [address] Huber Prado M.D. [id number] Erythrocyte distribution width (RBC) [Ratio] 14.3 % Normal 11.6-14.8 [facility] Comment on above: Performed By: #### L [id number] ####[facility] [address] [place] [address] Huber Prado M.D. [id number] Hematocrit (Bld) [Volume fraction] 45.8 % Normal 36.0-46.0 [facility] Comment on above: Performed By: #### L [id number] ####[facility] [address] [place] [address] Huber Prado M.D. [id number] Hemoglobin (Bld) [Mass/Vol] 14.5 g/dL Normal 12.0-16.0 [facility] Comment on above: Performed By: #### L [id number] ####[facility] [address] [place] [address] Huber Prado M.D. [id number] IG ABSOLUTE 0.06 K/mcL Normal 0.00-0.30 [facility] Comment on above: Performed By: #### L [id number] ####[facility] [address] [place] [address] Huber Prado M.D. [id number] IG PERCENT 0.50 % Normal [facility] Comment on above: Result Comment: The IG parameter is the percentage of metamyelocytes, myelocytes and promyelocytes. An immature granulocyte count (IG) of 1% or more suggests the possibility of infection, an IG count of 3% is very likely related to an infection. Performed By: #### L [id number] ####[facility] [address] [place] [address] Huber Prado M.D. [id number] Lymphocytes (Bld) [#/Vol] 2.41 10*3/uL Normal 0.90-4.00 [facility] Comment on above: Performed By: #### L [id number] ####[facility] [address] [place] [address] Huber Prado M.D. [id number] Lymphocytes/100 WBC (Bld) 20.5 % Normal [facility] Comment on above: Performed By: #### L [id number] ####[facility] [address] [place] [address] Huber Prado M.D. [id number] MCH (RBC) [Entitic mass] 30.7 pg Normal 26.0-34.0 [facility] Comment on above: Performed By: #### L [id number] ####[facility] [address] [place] [address] Huber Prado M.D. [id number] MCV (RBC) [Entitic vol] 97.0 fL Normal 80.0-100.0 [facility] Comment on above: Performed By: #### L [id number] ####[facility] [address] [place] [address] Huber Prado M.D. [id number] MEAN CORPUSCULAR HEMOGLOBIN CONC 31.7 g/dL Normal 31.0-37.0 [facility] Comment on above: Performed By: #### L [id number] ####[facility] [address] [place] [address] Huber Prado M.D. [id number] Monocytes (Bld) [#/Vol] 0.87 10*3/uL Normal 0.30-0.90 [facility] Comment on above: Performed By: #### L [id number] ####[facility] [address] [place], [place] [address] Huber Prado M.D. [id number] Monocytes/100 WBC (Bld) 7.4 % Normal [facility] Comment on above: Performed By: #### L [id number] ####[facility] [address] [place] [address] Huber Prado M.D. [id number] NEUTROPHILS ABSOLUTE COUNT 8.26 K/mcL High 1.70-7.00 [facility] Comment on above: Performed By: #### L [id number] ####[facility] [address] [place] [address] Huber Prado M.D. [id number] Neutrophils/100 WBC (Bld) 70.2 % Normal [facility] Comment on above: Performed By: #### Tasha [id number] ####[facility] [address] [place], [place] [address] Huber Prado M.D. [id number] Platelet mean volume (Bld) [Entitic vol] 11.2 fL Normal 9.4-12.4 [facility] Comment on above: Performed By: #### L [id number] ####[facility] [address] [place], [place] [address] Huber Prado M.D. [id number] Platelets (Bld) [#/Vol] 219 10*3/uL Normal 150-400 [facility] Comment on above: Performed By: #### L [id number] ####[facility] [address] [place], [place] [address] Huber Prado M.D. [id number] RBC (Bld) [#/Vol] 4.72 10*6/uL Normal 4.00-5.[address] [facility] Comment on above: Performed By: #### L [id number] ####[facility] [place], [place] [address] Huber Prado M.D. [id number] WBC (Bld) [#/Vol] 11.76 10*3/uL High 4.50-11.00 [facility] Comment on above: Performed By: #### L [id number] ####[facility] [address] [place] [address] Huber Prado M.D. [id number] CT CHEST ABDOMEN PELVIS WITH IV CONTRAST ONLYon 04-21-2024 CT CHEST ABDOMEN PELVIS WITH IV CONTRAST ONLY Normal [facility] Comment on above: Order Comment: Injur y/Trauma or Illness?:Illness/OtherHow long have you had these symptoms (acute/chronic)?:AcuteReason for exam?:amsType of Exam?:InitialAdditional signs and symptoms?:ams CT HEAD OR BRAIN WITHOUT CON TRASTon 04-21-2024 CT HEAD OR BRAIN WITHOUT CONTRAST Normal [facility] Comment on above: Order Comment: Injur y/Trauma or Illness?:Illness/OtherHow long have you had these symptoms (acute/chronic)?:AcuteReason for exam?:AMSType of Exam?:InitialAdditional signs and symptoms?:AMS ED Prov Noteon 04-21-2024 ED Prov Note Normal [facility] H AND Max 04-21-2024 H AND P Normal [facility] HCG, SERUM, QUALITATIVEon BETA-HCG QUAL BLOOD Negative Normal Negative [facility] Comment on above: Order Comment: Negat ivan: The result is less than or equal to 5 mIU/mL of HCG. Performed By: #### 4 [id number] ####[facility] [address] [place] [address]68[address] Huber Prado M.D. [id number] HEPATIC FUNCTION PANELon Albumin [Mass/Vol] 4.6 g/dL Normal 3.2-5.2 [facility] Comment on above: Performed By: #### 4 [id number] ####[facility] [address] [place], [place] [address] Huber Prado M.D. [id number] ALP [Catalytic activity/Vol] 143 U/L High 40-140 [facility] Comment on above: Performed By: #### 4 [id number] ####[facility] [address] [place] [address] Huber Prado M.D. [id number] ALT [Catalytic activity/Vol] 22 U/L Normal 0-35 U/L [facility] Comment on above: Performed By: #### 4 [id number] ####[facility] [address] [place] [address] Huber Prado M.D. [id number] AST [Catalytic activity/Vol] 19 U/L Normal 0-35 U/L [facility] Comment on above: Performed By: #### 4 [id number] ####[facility] [address] [place], [place] [address] Huber Prado M.D. [id number] Bilirubin [Mass/Vol] 0.2 mg/dL Normal 0.0-1.3 [facility] Comment on above: Performed By: #### 4 [id number] ####[facility] [address] [place], [place] [address] Huber Prado M.D. [id number] BILIRUBIN, DIRECT < Normal 0.0-0.4 [facility] Comment on above: Performed By: #### 4 [id number] ####[facility] [address] [place], [place] [address] Huber Prado M.D. [id number] Protein [Mass/Vol] 7.9 g/dL Normal 6.0-8.0 [facility] Comment on above: Performed By: #### 4 [id number] ####[facility] [address] [place], [place] [address]Nora Prado M.D. [id number] LACTIC ACID, PLASMAon 2023 LACTIC ACID, PLASMA 1.9 mmol/L Normal 0.6-2.[address] [facility] Comment on above: Performed By: #### 4 [id number] ####[facility] [address] [place] [address] Huber Prado M.D. [id number] LIPASEon 04-21-2024 Lipase [Catalytic activity/Vol] 21 U/L Normal 15-65 [facility] Comment on above: Performed By: #### 4 6086 ####[facility] [address] [place] [address] Huber Prado M.D. [id number] MAGNESIUM LEVELon 04-21-2024 Magnesium [Mass/Vol] 2.5 mg/dL High 1.6-2.4 [facility] Comment on above: Performed By: #### 4 6109 ####[facility] [address] [place] [address] Huber Prado M.D. [id number] POC VBG LAB(EPO) - RALSon 0 04-21-2024 BASE EXCESS, VENOUS 11.7 High -2.0-2.[address] [facility] Comment on above: Order Comment: [facility] Services has implemented the eGFR calculation approach that does not have a coefficient for race that conforms to the NKF-ASN Task Force Recommendations. Performed By: #### P [id number] ####[facility] [address] [place] [address] Huber Prado M.D. [id number] CALCIUM IONIZED 5.0 mg/dL Normal 4.5-5.3 [facility] Comment on above: Order Comment: [facility] has implemented the eGFR calculation approach that does not have a coefficient for race that conforms to the NKF-ASN Task Force Recommendations. Performed By: #### P [id number] ####[facility] [address] [place] [address] Huber Prado M.D. [id number] Chloride [Moles/Vol] 103 mmol/L Normal 98-108 [facility] Comment on above: Order Comment: [facility] has implemented the eGFR calculation approach that does not have a coefficient for race that conforms to the NKF-ASN Task Force Recommendations. Performed By: #### P [id number] ####[facility] [address] [place], [place] [address] Huber Prado M.D. [id number] CO2 [Moles/Vol] 41 mmol/L Off scale high 21-[address] [facility] Comment on above: Order Comment: [facility] has implemented the eGFR calculation approach that does not have a coefficient for race that conforms to the NKF-ASN Task Force Recommendations. Performed By: #### P [id number] ####[facility] [address] [place], [place] [address] Huber Prado M.D. [id number] Glucose [Mass/Vol] 146 mg/dL High 65-99 [facility] Comment on above: Order Comment: [facility] has implemented the eGFR calculation approach that does not have a coefficient for race that conforms to the NKF-ASN Task Force Recommendations. Performed By: #### P [id number] ####[facility] [address] [place] [address] Huber Prado M.D. [id number] Hematocrit (Bld) [Volume fraction] 47 % High 36-46 [facility] Comment on above: Order Comment: [facility] has implemented the eGFR calculation approach that does not have a coefficient for race that conforms to the NKF-ASN Task Force Recommendations. Performed By: #### P [id number] ####[facility] [address] [place] [address] 914[address] Huber Prado M.D. [id number] HEMOGLOBIN, CALCULATED 16.1 g/dL High 12.0-16.0 [facility] Comment on above: Order Comment: [facility] has implemented the eGFR calculation approach that does not have a coefficient for race that conforms to the NKF-ASN Task Force Recommendations. Performed By: #### P [id number] ####[facility] [address] [place] [address] Huber Prado M.D. [id number] Oxygen saturation in Blood 89.3 % High 40.0-70.0 [facility] Comment on above: Order Comment: [facility] has implemented the eGFR calculation approach that does not have a coefficient for race that conforms to the NKF-ASN Task Force Recommendations. Performed By: #### P [id number] ####[facility] [address] [place] [address] 49267 Huber Prado M.D. [id number] PCO2 VENOUS 62.7 mm Hg High 41.0-51.0 [facility] Comment on above: Order Comment: [facility] has implemented the eGFR calculation approach that does not have a coefficient for race that conforms to the NKF-ASN Task Force Recommendations. Performed By: #### P [id number] ####[facility] [address] [place] [address] Huber Prado M.D. [id number] PH VENOUS 7.41 Normal 7.32-7.42 [facility] Comment on above: Order Comment: [facility] has implemented the eGFR calculation approach that does not have a coefficient for race that conforms to the NKF-ASN Task Force Recommendations. Performed By: #### P [id number] ####[facility] [address] [place] [address] 98728 Huber Prado M.D. [id number] PO2 VENOUS 59 mm Hg High 25-40 [facility] Comment on above: Order Comment: [facility] has implemented the eGFR calculation approach that does not have a coefficient for race that conforms to the NKF-ASN Task Force Recommendations. Performed By: #### P [id number] ####[facility] [address] [place] [address] 10678 Huber Praod M.D. [id number] POC CREATININE (EPOC) < Low 0.40-1.10 [facility] Comment on above: Order Comment: [facility] has implemented the eGFR calculation approach that does not have a coefficient for race that conforms to the NKF-ASN Task Force Recommendations. Performed By: #### P [id number] ####[facility] [address] [place] [address] 91206 Huber Prado M.D. [id number] POC GFR Normal [facility] Comment on above: Order Comment: [facility] has implemented the eGFR calculation approach that does not have a coefficient for race that conforms to the NKF-ASN Task Force Recommendations. Result Comment: Neema mated GFR was calculated using the 2020 CKD-EPI creatinine equation. Performed By: #### P [id number] ####[facility] [address] [place] [address] 310[address] Huber Prado M.D. [id number] POC LACTATE 2.1 mmol/L High 0.6-2.0 [facility] Comment on above: Order Comment: [facility] has implemented the eGFR calculation approach that does not have a coefficient for race that conforms to the NKF-ASN Task Force Recommendations. Performed By: #### P [id number] ####[facility] [address] [place] [address] 35987 Huber Prado M.D. [id number] Potassium [Moles/Vol] 3.6 mmol/L Normal 3.5-5.1 [facility] Comment on above: Order Comment: [facility] has implemented the eGFR calculation approach that does not have a coefficient for race that conforms to the NKF-ASN Task Force Recommendations. Performed By: #### P [id number] ####[facility] [address] [place] [address] 72375 Huber Prado M.D. [id number] Sodium [Moles/Vol] 153 mmol/L High 135-145 [facility] Comment on above: Order Comment: [facility] has implemented the eGFR calculation approach that does not have a coefficient for race that conforms to the NKF-ASN Task Force Recommendations. Performed By: #### P [id number] ####[facility] [address] [place], [place] [address] Huber Prado M.D. [id number] Urea nitrogen [Mass/Vol] 18 mg/dL Normal 8-25 [facility] Comment on above: Order Comment: [facility] has implemented the eGFR calculation approach that does not have a coefficient for race that conforms to the NKF-ASN Task Force Recommendations. Performed By: #### P [id number] ####[facility] [address] [place] [address] Huber Prado M.D. [id number] T4, FREEon 04-21-2024 Free T4 [Mass/Vol] 0.8 ng/dL Normal 0.7-1.7 [facility] Comment on above: Performed By: #### 4 6567 ####[facility] [address] [place] [address] 72473Nora Prado M.D. [id number] TSH WITH REFLEX FREE T4on TSH Qn 4.48 m[IU]/L High 0.27-4.20 [facility] Comment on above: Performed By: #### 4 6612 ####[facility] [address] [place] [address] 48571 Huber Prado M.D. [id number] URINALYSISon 04-21-2024 AMORPHOUS CRYSTALS Few Abnormal None Seen , Rare [facility] Comment on above: Order Comment: Micro scopic examination is performed on all urinalysis samples and only positive findings are reported. The test for blood on the chemical analytic portion of urinalysis may also be positive due to hemoglobinuria and myoglobinuria and if red blood cells are present they are quantified by microscopic examination. Performed By: #### 4 6625 ####[facility] [address] [place] [address] Huber Prado M.D. [id number] BACTERIA, URINE Many Abnormal None Seen [facility] Comment on above: Order Comment: Micro scopic examination is performed on all urinalysis samples and only positive findings are reported. The test for blood on the chemical analytic portion of urinalysis may also be positive due to hemoglobinuria and myoglobinuria and if red blood cells are present they are quantified by microscopic examination. Performed By: #### 4 6625 ####[facility] [address] [place] [address] Huber Prado M.D. [id number] BILIRUBIN, URINE Negative Normal Negative [facility] Comment on above: Order Comment: Micro scopic examination is performed on all urinalysis samples and only positive findings are reported. The test for blood on the chemical analytic portion of urinalysis may also be positive due to hemoglobinuria and myoglobinuria and if red blood cells are present they are quantified by microscopic examination. Performed By: #### 4 6625 ####[facility] [address] [place] [address] Huber Prado M.D. [id number] BLOOD, URINE Negative Normal Negative [facility] Comment on above: Order Comment: Micro scopic examination is performed on all urinalysis samples and only positive findings are reported. The test for blood on the chemical analytic portion of urinalysis may also be positive due to hemoglobinuria and myoglobinuria and if red blood cells are present they are quantified by microscopic examination. Performed By: #### 4 6625 ####[facility] [address] [place] [address] Huber Prado M.D. [id number] CALCIUM OXALATE CRYSTALS Few Abnormal None Seen [facility] Comment on above: Order Comment: Micro scopic examination is performed on all urinalysis samples and only positive findings are reported. The test for blood on the chemical analytic portion of urinalysis may also be positive due to hemoglobinuria and myoglobinuria and if red blood cells are present they are quantified by microscopic examination. Performed By: #### 4 6625 ####[facility] [address] [place] [address] Huber Prado M.D. [id number] Clarity (U) Cloudy Abnormal Clear [facility] Comment on above: Order Comment: Micro scopic examination is performed on all urinalysis samples and only positive findings are reported. The test for blood on the chemical analytic portion of urinalysis may also be positive due to hemoglobinuria and myoglobinuria and if red blood cells are present they are quantified by microscopic examination. Performed By: #### 4 6625 ####[facility] [address] [place] [address] Huber Prado M.D. [id number] Color (U) Yellow Normal Colorless, Yellow [facility] Comment on above: Order Comment: Micro scopic examination is performed on all urinalysis samples and only positive findings are reported. The test for blood on the chemical analytic portion of urinalysis may also be positive due to hemoglobinuria and myoglobinuria and if red blood cells are present they are quantified by microscopic examination. Performed By: #### 4 [id number] ####[facility] [address] [place] [address] Huber Prado M.D. [id number] Glucose Ql (U) Negative Normal Negative [facility] Comment on above: Order Comment: Micro scopic examination is performed on all urinalysis samples and only positive findings are reported. The test for blood on the chemical analytic portion of urinalysis may also be positive due to hemoglobinuria and myoglobinuria and if red blood cells are present they are quantified by microscopic examination. Performed By: #### 4 6625 ####[facility] [address] [place] [address] Huber Prado M.D. [id number] Ketones Ql (U) Negative Normal Negative [facility] Comment on above: Order Comment: Micro scopic examination is performed on all urinalysis samples and only positive findings are reported. The test for blood on the chemical analytic portion of urinalysis may also be positive due to hemoglobinuria and myoglobinuria and if red blood cells are present they are quantified by microscopic examination. Performed By: #### 4 6625 ####[facility] [address] [place] [address] Huber Prado M.D. [id number] Leukocyte esterase Test strip Ql (U) Large Abnormal Negative [facility] Comment on above: Order Comment: Micro scopic examination is performed on all urinalysis samples and only positive findings are reported. The test for blood on the chemical analytic portion of urinalysis may also be positive due to hemoglobinuria and myoglobinuria and if red blood cells are present they are quantified by microscopic examination. Performed By: #### 4 6625 ####[facility] [address] [place] [address] 29918 Huber Prado M.D. [id number] MUCUS, URINE Few Abnormal None Seen, Rare [facility] Comment on above: Order Comment: Micro scopic examination is performed on all urinalysis samples and only positive findings are reported. The test for blood on the chemical analytic portion of urinalysis may also be positive due to hemoglobinuria and myoglobinuria and if red blood cells are present they are quantified by microscopic examination. Performed By: #### 4 6625 ####[facility] [address] [place] [address] 18636 Huber Prado M.D. [id number] NITRITE, URINE Negative Normal Negative [facility] Comment on above: Order Comment: Micro scopic examination is performed on all urinalysis samples and only positive findings are reported. The test for blood on the chemical analytic portion of urinalysis may also be positive due to hemoglobinuria and myoglobinuria and if red blood cells are present they are quantified by microscopic examination. Performed By: #### 4 6625 ####[facility] [address] [place] [address]140 Huber Prado M.D. [id number] pH (U) 7.5 [pH] High 5.0-7.0 [facility] Comment on above: Order Comment: Micro scopic examination is performed on all urinalysis samples and only positive findings are reported. The test for blood on the chemical analytic portion of urinalysis may also be positive due to hemoglobinuria and myoglobinuria and if red blood cells are present they are quantified by microscopic examination. Performed By: #### 4 6625 ####[facility] [address] [place], [place] [address] Huber Prado M.D. [id number] Protein (U) [Mass/Vol] 30 mg/dL Abnormal Negative [facility] Comment on above: Order Comment: Micro scopic examination is performed on all urinalysis samples and only positive findings are reported. The test for blood on the chemical analytic portion of urinalysis may also be positive due to hemoglobinuria and myoglobinuria and if red blood cells are present they are quantified by microscopic examination. Result Comment: Fals e positive results may occur in urines with large amounts of hemoglobin, pH greater than 8.0, contrast medium, or disinfectants including ammonium compounds. Performed By: #### 4 6625 ####[facility] [address] [place] [address] 11666 Huber Prado M.D. [id number] RBC LM.HPF (Urine sed) [#/Area] 29 /[HPF] High 0-3 [facility] Comment on above: Order Comment: Micro scopic examination is performed on all urinalysis samples and only positive findings are reported. The test for blood on the chemical analytic portion of urinalysis may also be positive due to hemoglobinuria and myoglobinuria and if red blood cells are present they are quantified by microscopic examination. Performed By: #### 4 6625 ####[facility] [address] [place], [place] [address] Huber Prado M.D. [id number] Specific gravity (U) [Rel density] 1.025 Normal 1.005-1.025 [facility] Comment on above: Order Comment: Micro scopic examination is performed on all urinalysis samples and only positive findings are reported. The test for blood on the chemical analytic portion of urinalysis may also be positive due to hemoglobinuria and myoglobinuria and if red blood cells are present they are quantified by microscopic examination. Performed By: #### 4 6625 ####[facility] [address] [place] [address] Huber Prado M.D. [id number] SQUAMOUS EPITHELIAL 3 /hpf Normal 0-[address] [facility] Comment on above: Order Comment: Micro scopic examination is performed on all urinalysis samples and only positive findings are reported. The test for blood on the chemical analytic portion of urinalysis may also be positive due to hemoglobinuria and myoglobinuria and if red blood cells are present they are quantified by microscopic examination. Performed By: #### 4 6625 ####[facility] [address] [place] [address] Huber Prado M.D. [id number] TRIPLEPHOSPHATE CRYSTALS Few Abnormal None Seen [facility] Comment on above: Order Comment: Micro scopic examination is performed on all urinalysis samples and only positive findings are reported. The test for blood on the chemical analytic portion of urinalysis may also be positive due to hemoglobinuria and myoglobinuria and if red blood cells are present they are quantified by microscopic examination. Performed By: #### 4 6625 ####[facility] [address] [place] [address] 70428 Huber Prado M.D. [id number] UROBILINOGEN, URINE <2.0 Normal <2.[address] [facility] Comment on above: Order Comment: Micro scopic examination is performed on all urinalysis samples and only positive findings are reported. The test for blood on the chemical analytic portion of urinalysis may also be positive due to hemoglobinuria and myoglobinuria and if red blood cells are present they are quantified by microscopic examination. Performed By: #### 4 6625 ####[facility] [address] [place] [address] 97[address] Huber Prado M.D. [id number] WBC LM.HPF (Urine sed) [#/Area] 71 /[HPF] High 0-5 [facility] Comment on above: Order Comment: Micro scopic examination is performed on all urinalysis samples and only positive findings are reported. The test for blood on the chemical analytic portion of urinalysis may also be positive due to hemoglobinuria and myoglobinuria and if red blood cells are present they are quantified by microscopic examination. Performed By: #### 4 6625 ####[facility] [address] [place] [address] Huber Prado M.D. [id number] URINE AEROBIC CULTUREon 03-31 URINE AEROBIC CULTURE Abnormal [facility] Comment on above: Performed By: #### 4 [id number] ####[facility] [address] [place] [address] 89685 Huber Prado M.D. [id number] Bacteria identified Cx Nom ( Bld)on 07-21-2022 Interpretation and review of laboratory results Normal [facility] Interpretation and review of laboratory results Normal [facility] Blood Culture #1on 2 Bacteria identified Cx Nom (Bld) No Growth After 5 [facility] Blood [facility] #2[facility] 2 Bacteria identified Cx Nom (Bld) No Growth After 5 Days [facility] Bacteria identified Anaer cx Nom (Unsp spec)Ordered By: Yeny Paulino on 07-20-2022 [facility] CSF Anaerobic CultureOrdered By: Yeny Paulino on 07-20-2022 Bacteria identified Anaer cx Nom (Unsp spec) No Anaerobic Growth at 5 Days [facility] Tissue Anaerobic Cultureon 1 09-19-2021 Bacteria identified Anaer cx Nom (Tiss) No Anaerobic Growth at 5 Days [facility] Wound Anaerobic Cultureon Bacteria identified Anaer cx Nom (Wound) No Anaerobic Growth at 5 Days [facility] Basic metabolic 1998 panelon 07-19-2022 Anion gap [Moles/Vol] 15 mmol/L 10 - 2 0 mmol/L [facility] Chloride [Moles/Vol] 102 mmol/L 98 - 10 8 mmol/L [facility] Creatinine [Mass/Vol] 0.34 mg/dL Low 0.40 - 1.10 mg/dL [facility] GFR/1.73 sq M.predicted CKD-EPI (S/P/Bld) [Vol rate/Area] 140 - PINF [facility] Comment on above: Estimated GFR was ca lculated using the 2020 CKD-EPI creatinine equation. Glucose [Mass/Vol] 139 mg/dL High 65 - 99 mg/dL [facility] HCO3 [Moles/Vol] 27 mmol/L 21 - 32 mmol/L [facility] Interpretation and review of laboratory results Abnormal [facility] Potassium [Moles/Vol] 3.9 mmol/L 3.5 - 5.1 mmol/L [facility] Sodium [Moles/Vol] 140 mmol/L 135 - 145 mmol/L [facility] Urea nitrogen [Mass/Vol] 10 mg/dL 8 - 25 mg/dL [facility] Urea nitrogen/Creatinine [Mass ratio] 29.4 mg/mg High 10.0 - 20.0 [facility] y Services has implemented the eGFR calculation approach that does not have a coefficient for race that conforms to the NKF-ASN Task Force Recommendations. [facility] CSF Aerobic Culture (Shunt o r Drain Only)Ordered By: Shanthi Lino on 07-18-2022 Bacteria identified Cx Nom (CSF) No Growth After 72 Hours [facility] Microscopic observation Gram stain Nom (CSF) No Organisms Seen [facility] Microscopic observation Gram stain Nom (CSF) Many RBC [facility] Microscopic observation Gram stain Nom (CSF) No WBC Seen [facility] Wound Aerobic Cultureon 06-30 Bacteria identified Aer cx Nom (Wound) Rare growth Pseudomonas aeruginosa Abnormal [facility] Bacteria identified Aer cx Nom (Wound) Few Growth (4-10 colonies per plate) Streptococcus agalactiae (Group B) Abnormal [facility] Comment on above: Group B Streptococci are susceptible to ampicillin, penicillin, and cefazolin but may be clindamycin resistant. If susceptibility testing is necessary, please notify the Microbiology laboratory within 72 hours. Interpretation and review of laboratory results Abnormal [facility] Microscopic observation Gram stain Nom (Wound) Few WBC [facility] Microscopic observation Gram stain Nom (Wound) Many RBC [facility] Microscopic observation Gram stain Nom (Wound) No Organisms Seen [facility] Basic metabolic 1998 panelOr dered By: Daniel Spear on 07-17-2022 Anion gap [Moles/Vol] 11 mmol/L 10 - 2 0 mmol/L [facility] Chloride [Moles/Vol] 111 mmol/L High 98 - 10 8 mmol/L [facility] Creatinine [Mass/Vol] 0.25 mg/dL Low 0.40 - 1.10 mg/dL [facility] GFR/1.73 sq M.predicted CKD-EPI (S/P/Bld) [Vol rate/Area] 151 - PINF [facility] Comment on above: Estimated GFR was ca lculated using the 2020 CKD-EPI creatinine equation. Glucose [Mass/Vol] 90 mg/dL 65 - 99 mg/dL [facility] HCO3 [Moles/Vol] 27 mmol/L 21 - 32 mmol/L [facility] Interpretation and review of laboratory results Abnormal [facility] Potassium [Moles/Vol] 2.9 mmol/L Low 3.5 - 5.1 mmol/L [facility] Sodium [Moles/Vol] 146 mmol/L High 135 - 145 mmol/L [facility] Urea nitrogen [Mass/Vol] 3 mg/dL Low 8 - 25 mg/dL [facility] Urea nitrogen/Creatinine [Mass ratio] 12.0 mg/mg 10.0 - 20.0 [facility] has implemented the eGFR calculation approach that does not have a coefficient for race that conforms to the NKF-ASN Task Force Recommendations. [facility] CBC panel Auto (Bld)on 07-17 Erythrocyte distribution width (RBC) [Entitic vol] 12.6 % 11.6 - 14.8 % [facility] Hematocrit (Bld) [Volume fraction] 30.3 % Low 36.0 - 46.0 % [facility] Hemoglobin (Bld) [Mass/Vol] 9.7 g/dL Low 12.0 - 16.0 g/dL [facility] Interpretation and review of laboratory results Abnormal [facility] MCH (RBC) [Entitic mass] 30.3 pg 26.0 - 34.0 pg [facility] MCHC (RBC) [Mass/Vol] 32.0 g/dL 31.0 - 37.0 g/dL [facility] MCV (RBC) [Entitic vol] 94.7 fL 80.0 - 100.0 fL [facility] Nucleated RBC (Bld) [#/Vol] 0.00 10*3/uL [facility] Nucleated RBC/100 WBC (Bld) [Ratio] 0.0 % [facility] Platelet mean volume (Bld) [Entitic vol] 11.4 fL 9.4 - 12.4 fL [facility] Platelets (Bld) [#/Vol] 193 10*3/uL [facility] RBC (Bld) [#/Vol] 3.20 10*6/uL Low [facility] WBC (Bld) [#/Vol] 9.59 10*3/uL [facility] Glucose (Bld) [Mass/Vol]on 09-16-2021 Glucose [Mass/Vol] 97 mg/dL 65 - 99 mg/dL [facility] Interpretation and review of laboratory results Normal [facility] Glucose [Mass/Vol] 94 mg/dL 65 - 99 mg/dL [facility] Interpretation and review of laboratory results Normal [facility] Glucose [Mass/Vol] 97 mg/dL 65 - 99 mg/dL [facility] Interpretation and review of laboratory results Normal [facility] Magnesium Levelon 07-17-2022 Magnesium [Mass/Vol] 1.9 mg/dL 1.6 - 2 .4 mg/dL [facility] Magnesium [Mass/Vol]on 07-17 Interpretation and review of laboratory results Normal [facility] Tissue Aerobic CultureOrdere d By: Jagruti Faulkner on 07-17-2022 Bacteria identified Aer cx Nom (Tiss) Rare growth Streptococcus agalactiae (Group B) Abnormal [facility] Comment on above: Group B Streptococci are susceptible to ampicillin, penicillin, and cefazolin but may be clindamycin resistant. If susceptibility testing is necessary, please notify the Microbiology laboratory within 72 hours. Interpretation and review of laboratory results Abnormal [facility] Microscopic observation Gram stain Nom (Tiss) Few WBC [facility] Microscopic observation Gram stain Nom (Tiss) No Organisms Seen [facility] Basic metabolic 1998 panelon 07-16-2022 Anion gap [Moles/Vol] 11 mmol/L 10 - 2 0 mmol/L [facility] Chloride [Moles/Vol] 108 mmol/L 98 - 10 8 mmol/L [facility] Creatinine [Mass/Vol] 0.34 mg/dL Low 0.40 - 1.10 mg/dL [facility] GFR/1.73 sq M.predicted CKD-EPI (S/P/Bld) [Vol rate/Area] 140 - PINF [facility] Comment on above: Estimated GFR was ca lculated using the 2020 CKD-EPI creatinine equation. Glucose [Mass/Vol] 88 mg/dL 65 - 99 mg/dL [facility] HCO3 [Moles/Vol] 26 mmol/L 21 - 32 mmol/L [facility] Interpretation and review of laboratory results Abnormal [facility] Potassium [Moles/Vol] 3.4 mmol/L Low 3.5 - 5.1 mmol/L [facility] Sodium [Moles/Vol] 142 mmol/L 135 - 145 mmol/L [facility] Urea nitrogen [Mass/Vol] 8 mg/dL 8 - 25 mg/dL [facility] Urea nitrogen/Creatinine [Mass ratio] 23.5 mg/mg High 10.0 - 20.0 [facility] has implemented the eGFR calculation approach that does not have a coefficient for race that conforms to the NKF-ASN Task Force Recommendations. [facility] CBC panel Auto (Bld)on 07-16 Erythrocyte distribution width (RBC) [Entitic vol] 12.7 % 11.6 - 14.8 % [facility] Hematocrit (Bld) [Volume fraction] 32.4 % Low 36.0 - 46.0 % [facility] Hemoglobin (Bld) [Mass/Vol] 10.3 g/dL Low 12.0 - 16.0 g/dL [facility] Comment on above: Repeated verified Interpretation and review of laboratory results Abnormal [facility] MCH (RBC) [Entitic mass] 30.6 pg 26.0 - 34.0 pg [facility] MCHC (RBC) [Mass/Vol] 31.8 g/dL 31.0 - 37.0 g/dL [facility] MCV (RBC) [Entitic vol] 96.1 fL 80.0 - 100.0 fL [facility] Nucleated RBC (Bld) [#/Vol] 0.00 10*3/uL [facility] Nucleated RBC/100 WBC (Bld) [Ratio] 0.0 % [facility] Platelet mean volume (Bld) [Entitic vol] 11.3 fL 9.4 - 12.4 fL [facility] Platelets (Bld) [#/Vol] 190 10*3/uL [facility] RBC (Bld) [#/Vol] 3.37 10*6/uL [facility] ealt WBC (Bld) [#/Vol] 10.14 10*3/uL [facility] CT Abdomen Pelvis With IV Co ntrast Onlyon 07-16-2022 1. Interval placement of a pump device in the left lower quadrant anterior abdominal wall. There is adjacent soft tissue air. No discrete hematoma or other fluid collection. 2. Small amount of fluid and air in the pocket of the prior pump positioned in the right abdominal wall. Adjacent surgical drain is noted. 3. Right ischial decubitus ulcer extending near the osseous surface with remodeling and ill-defined sclerosis, similar to the comparison study. This may represent chronic osteomyelitis. No definite acute osseous destruction. 4. Moderate colonic distention with prominent fluid feces. Suggest correlation for diarrheal state or proctocolitis. 5. Gastrostomy tube with the tip in the stomach. Possible communication of the distal gastric antrum to the skin surface at the midline. There is also a mildly thickened appearance of the stomach which may be accentuated by nondistention, although gastritis could appear similar. 6. Prominent diffuse thickening of the urinary bladder. Please correlate for possible cystitis. Sage catheter is in place. There are multiple bladder calculi. 7. Numerous appendicoliths in the appendix without evidence of acute inflammation. There is also coarse calcification at the tip of the cecum. This may represent chronic fecalith formation, although an underlying mucinous process and/or calcified mass cannot be excluded. 8. Moderate partial atelectasis in the lung bases. 9. Nonobstructing right renal calculi. 10. Scoliosis with long spinal rods extending into the iliac bones as described. [employer] Workstation ID: [id number] [facility] EXAMINATION: CT ABDOMEN PELVIS WITH IV CONTRAST ONLY HISTORY: ORDERING SYSTEM PROVIDED HISTORY: Rule out intraabdominal process after baclofen pump relocation in setting of new hypotension and significant hgb drop, TECHNOLOGIST PROVIDED HISTORY: Illness/Other Reason for exam: Rule out intraabdominal process after baclofen pump relocation in setting of new hypotension and significant hgb drop Encounter Type: Ongoing Additional signs and symptoms: Rule out intraabdominal process after baclofen pump relocation in setting of new hypotension and significant hgb drop ORDERING SYSTEM PROVIDED DIAGNOSIS CODES: Z51.89 Visit for wound check Z97.8 Presence of intrathecal baclofen pump COMPARISON: CT of the abdomen and pelvis 11/30/2021. TECHNIQUE: Dose reduction techniques were achieved by using automated exposure control and/or adjustment of mA and/or kV according to patient size and/or use of iterative reconstruction technique. Helical CT of the abdomen and pelvis was performed using 75 mL Isovue-370 IV. FINDINGS: There is xtdpkqes-eb-hedpir scoliosis with the posterior spinal rods involving the visualized lower thoracic spine and extending through the lumbar spine and into the bilateral iliac bones. The iliac portions of the rods are partially lateral to the iliac wings. There is lucency along the lateral aspect of the right iliac wing adjacent to the juan pablo on series 3, image 74 which is not definitely changed although differences in the streak artifact limit comparison. There is hypertrophic remodeling of the left iliac wing adjacent to the juan pablo. There is an epidural catheter which is partially looped in the lower thoracic spinal canal as shown on series 3, image 14, unchanged. This catheter appears likely blind-ending in the subcutaneous tissues of the right flank. There is also an epidural catheter which appears to have its tip in the lower thoracic spinal canal and is likely connected to the pump device in the left lower quadrant anterior abdominal wall. The catheters are difficult to distinguish in following their entire courses on CT, in part because of the streak artifact related to spinal rods. There is a moderate partial atelectasis in the bilateral lung bases. Heart appears normal in size. The liver demonstrates no suspicious focal lesions or significant intrahepatic biliary ductal dilatation. Patient status post cholecystectomy. Spleen is normal in size. Pancreas is grossly unremarkable. Adrenal glands appear normal aside from a mild rounded dense thickening of the medial limb of the left adrenal gland measuring 7 mm. This appears similar over multiple prior CT studies and favors benign etiology. There are multiple nonobstructing right renal calculi, measuring up to approximately 5 mm for example on coronal image 57. No definite suspicious renal lesions. Evaluation of the solid abdominal organs is limited due to the above-described streak artifact as well as image noise related to arm position, as well as motion artifact. There is no evidence of bulky abdominal adenopathy. A gastrostomy tube is present with the tip in the distal stomach. In the very distal gastric antrum there is some obscuration of the fat planes between the anterior wall of the stomach in the skin surface which may represent a prior gastrostomy tube site or possibility fistula. Stomach appears mildly prominent in thickness, possibly accentuated by nondistention. Small bowel loops are nondistended. The colon contains prominent fluid feces with scattered air-fluid levels and is mildly to moderately distended. There is prominent calcific density involving the appendix with thin appearance suggesting multiple small fecaliths for example on coronal image 46. There is also coarse irregular-shaped calcification at the cecal tip near the base of the appendix. This has increased since the comparison study. Pelvis: Sage catheter is present with the tip in the urinary bladder. There is severe diffuse bladder wall thickening and there are numerous calcific densities which are irregularly shaped in the bladder lumen compatible with stones. Uterus and ovaries are not evaluated in great detail but are otherwise unremarkable. There is no evidence of free pelvic fluid or bulky pelvic adenopathy. The pump device in the left lower quadrant anterior abdominal wall creates streak artifact. This has been replaced or repositioned since the comparison study and there is a xwhf-wb-ircfdhue amount of air in the abdominal wall adjacent to the pump. No evidence of fluid collections. No hematoma is appreciated. There is a surgical drain in the right abdominal wall at the site of the prior pump location. There is a small amount of air and fluid within the previous pocket measuring 3.9 x 1.3 cm on image 60, for example. Bone windows demonstrate osseous remodeling and sclerosis involving the right ischial tuberosity and adjacent soft tissues. There is an apparent soft tissue (more content not included)... [facility] Fernando Zuleta MD - 07/16/2022 EXAMINATION: CT ABDOMEN PELVIS WITH IV CONTRAST ONLY HISTORY: ORDERING SYSTEM PROVIDED HISTORY: Rule out intraabdominal process after baclofen pump relocation in setting of new hypotension and significant hgb drop, TECHNOLOGIST PROVIDED HISTORY: Illness/Other Reason for exam: Rule out intraabdominal process after baclofen pump relocation in setting of new hypotension and significant hgb drop Encounter Type: Ongoing Additional signs and symptoms: Rule out intraabdominal process after baclofen pump relocation in setting of new hypotension and significant hgb drop ORDERING SYSTEM PROVIDED DIAGNOSIS CODES: Z51.89 Visit for wound check Z97.8 Presence of intrathecal baclofen pump COMPARISON: CT of the abdomen and pelvis 11/30/2021. TECHNIQUE: Dose reduction techniques were achieved by using automated exposure control and/or adjustment of mA and/or kV according to patient size and/or use of iterative reconstruction technique. Helical CT of the abdomen and pelvis was performed using 75 mL Isovue-370 IV. FINDINGS: There is qsjncuvh-lf-nhigit scoliosis with the posterior spinal rods involving the visualized lower thoracic spine and extending through the lumbar spine and into the bilateral iliac bones. The iliac portions of the rods are partially lateral to the iliac wings. There is lucency along the lateral aspect of the right iliac wing adjacent to the juan pablo on series 3, image 74 which is not definitely changed although differences in the streak artifact limit comparison. There is hypertrophic remodeling of the left iliac wing adjacent to the juan pablo. There is an epidural catheter which is partially looped in the lower thoracic spinal canal as shown on series 3, image 14, unchanged. This catheter appears likely blind-ending in the subcutaneous tissues of the right flank. There is also an epidural catheter which appears to have its tip in the lower thoracic spinal canal and is likely connected to the pump device in the left lower quadrant anterior abdominal wall. The catheters are difficult to distinguish in following their entire courses on CT, in part because of the streak artifact related to spinal rods. There is a moderate partial atelectasis in the bilateral lung bases. Heart appears normal in size. The liver demonstrates no suspicious focal lesions or significant intrahepatic biliary ductal dilatation. Patient status post cholecystectomy. Spleen is normal in size. Pancreas is grossly unremarkable. Adrenal glands appear normal aside from a mild rounded dense thickening of the medial limb of the left adrenal gland measuring 7 mm. This appears similar over multiple prior CT studies and favors benign etiology. There are multiple nonobstructing right renal calculi, measuring up to approximately 5 mm for example on coronal image 57. No definite suspicious renal lesions. Evaluation of the solid abdominal organs is limited due to the above-described streak artifact as well as image noise related to arm position, as well as motion artifact. There is no evidence of bulky abdominal adenopathy. A gastrostomy tube is present with the tip in the distal stomach. In the very distal gastric antrum there is some obscuration of the fat planes between the anterior wall of the stomach in the skin surface which may represent a prior gastrostomy tube site or possibility fistula. Stomach appears mildly prominent in thickness, possibly accentuated by nondistention. Small bowel loops are nondistended. The colon contains prominent fluid feces with scattered air-fluid levels and is mildly to moderately distended. There is prominent calcific density involving the appendix with thin appearance suggesting multiple small fecaliths for example on coronal image 46. There is also coarse irregular-shaped calcification at the cecal tip near the base of the appendix. This has increased since the comparison study. Pelvis: Sage catheter is present with the tip in the urinary bladder. There is severe diffuse bladder wall thickening and there are numerous calcific densities which are irregularly shaped in the bladder lumen compatible with stones. Uterus and ovaries are not evaluated in great detail but are otherwise unremarkable. There is no evidence of free pelvic fluid or bulky pelvic adenopathy. The pump device in the left lower quadrant anterior abdominal wall creates streak artifact. This has been replaced or repositioned since the comparison study and there is a meux-cc-rbgieoqa amount of air in the abdominal wall adjacent to the pump. No evidence of fluid collections. No hematoma is appreciated. There is a surgical drain in the right abdominal wall at the site of the prior pump location. There is a small amount of air and fluid within the previous pocket measuring 3.9 x 1.3 cm on image 60, for example. Bone windows demonstrate osseous remodeling and sclerosis involving the right ischial tuberosity and ad (more content not included)... [facility] Radiology Study observation (narrative) [facility] CT Abdomen Pelvis With IV Co ntrast OnlyOrdered By: Fernando Zuleta on 07-16-2022 [facility] Work Phone: EKGon 07-16-2022 [facility] Glucose (Bld) [Mass/Vol]on 1 09-15-2021 Glucose [Mass/Vol] 91 mg/dL 65 - 99 mg[facility]dL [facility] Interpretation and review of laboratory results Normal [facility] Glucose [Mass/Vol] 84 mg/dL 65 - 99 mg/dL [facility]al Interpretation and review of laboratory results Normal [facility] Glucose [Mass/Vol] 83 mg/dL 65 - 99 mg/dL [facility] Interpretation and review of laboratory results Normal [facility] Glucose [Mass/Vol] 81 mg/dL 65 - 99 mg/dL [facility] Interpretation and review of laboratory results Normal [facility] Glucose [Mass/Vol] 95 mg/dL 65 - 99 mg/dL [facility]al Interpretation and review of laboratory results Normal [facility] Magnesium Levelon 07-16-2022 Magnesium [Mass/Vol] 2.1 mg/dL 1.6 - 2 .4 mg/dL [facility] Magnesium [Mass/Vol]on 07-16 Interpretation and review of laboratory results Normal [facility] Potassium Levelon 07-16-2022 Potassium [Moles/Vol] 3.4 mmol/L Low 3.5 - 5.1 mmol/L [facility] Potassium [Moles/Vol]on 06-30 Interpretation and review of laboratory results Abnormal [facility] XR Chest 1 Viewon 07-16-2022 1. New right IJ central line tip projecting over the distal SVC. No pneumothorax. 2. No gross evidence of acute cardiopulmonary disease. Workstation ID: [id number] EXAMINATION: XR CHEST PA/AP, 07/16/2022 HISTORY: R IJ COMPARISON: Chest x-ray, 01/14/2022. FINDINGS: A new right IJ central line tip projects over the distal SVC. No pneumothorax is seen. Cardiac size, mediastinal contour and pulmonary vascularity appear within normal limits. There is a severe thoracic dextroscoliosis spanned by a lung spinal fusion rods, unchanged. Asymmetric hazy opacity in the left hemithorax is stable, and is likely due to patient rotation to the left due to the severe scoliotic curvature. The spine and fusion rods largely obscure the right hemithorax, which appears grossly clear. [facility] Werner Boucher MD - 07/16/2022 EXAMINATION: XR CHEST PA/AP, 07/16/2022 HISTORY: R IJ COMPARISON: Chest x-ray, 01/14/2022. FINDINGS: A new right IJ central line tip projects over the distal SVC. No pneumothorax is seen. Cardiac size, mediastinal contour and pulmonary vascularity appear within normal limits. There is a severe thoracic dextroscoliosis spanned by a lung spinal fusion rods, unchanged. Asymmetric hazy opacity in the left hemithorax is stable, and is likely due to patient rotation to the left due to the severe scoliotic curvature. The spine and fusion rods largely obscure the right hemithorax, which appears grossly clear. IMPRESSION: 1. New right IJ central line tip projecting over the distal SVC. No pneumothorax. 2. No gross evidence of acute cardiopulmonary disease. Workstation ID: [id number] [facility] Radiology Study observation (narrative) [facility] XR Chest 1 ViewOrdered By: Jessica Boucher on 07-16-2022 [facility] Work Phone: APTT Heparin Coverageon 06-30 aPTT Coag (Bld) [Time] 27 s [facility] Interpretation and review of laboratory results Normal [facility] Therapeutic range fo r APTT's is 68 - 104 seconds [facility] Basic metabolic 2000 panelon 07-15-2022 Anion gap [Moles/Vol] 16 mmol/L 10 - 2 0 mmol/L [facility] Calcium [Mass/Vol] 9.7 mg/dL 8.4 - 10. 2 mg/dL [facility] Chloride [Moles/Vol] 105 mmol/L 98 - 10 8 mmol/L [facility] Creatinine [Mass/Vol] 0.29 mg/dL Low 0.40 - 1.10 mg/dL [facility] GFR/1.73 sq M.predicted CKD-EPI (S/P/Bld) [Vol rate/Area] 146 - PINF [facility] Comment on above: Estimated GFR was ca lculated using the 2020 CKD-EPI creatinine equation. Glucose [Mass/Vol] 100 mg/dL High 65 - 99 mg/dL [facility] HCO3 [Moles/Vol] 21 mmol/L 21 - 32 mmol/L [facility] Interpretation and review of laboratory results Abnormal [facility] Potassium [Moles/Vol] 4.2 mmol/L 3.5 - 5.1 mmol/L [facility] Sodium [Moles/Vol] 138 mmol/L 135 - 145 mmol/L [facility] Urea nitrogen [Mass/Vol] 14 mg/dL 8 - 25 mg/dL [facility] Urea nitrogen/Creatinine [Mass ratio] 48.3 mg/mg High 10.0 - 20.0 [facility] has implemented the eGFR calculation approach that does not have a coefficient for race that conforms to the NKF-ASN Task Force Recommendations. [facility] Blood type and Indirect anti body screen panel (Bld)on 07-15-2022 ABO and Rh group Nom (Bld) Blood group A Rh(D) positive [facility] Blood group antibody screen Ql Negative [facility] Specimen Expires 07/18/2022 23:59 EST [facility] CBC panel Auto (Bld)on 07-15 Erythrocyte distribution width (RBC) [Entitic vol] 12.5 % 11.6 - 14.8 % [facility] Hematocrit (Bld) [Volume fraction] 47.2 % High 36.0 - 46.0 % [facility] Hemoglobin (Bld) [Mass/Vol] 14.3 g/dL 12.0 - 16.0 g/dL [facility] Interpretation and review of laboratory results Abnormal [facility] MCH (RBC) [Entitic mass] 30.4 pg 26.0 - 34.0 pg [facility] MCHC (RBC) [Mass/Vol] 30.3 g/dL Low 31.0 - 37.0 g/dL [facility] MCV (RBC) [Entitic vol] 100.2 fL High 80.0 - 100.0 fL [facility] Nucleated RBC (Bld) [#/Vol] 0.00 10*3/uL [facility] Nucleated RBC/100 WBC (Bld) [Ratio] 0.0 % [facility] Platelet mean volume (Bld) [Entitic vol] 10.5 fL 9.4 - 12.4 fL [facility] Platelets (Bld) [#/Vol] 278 10*3/uL [facility] RBC (Bld) [#/Vol] 4.71 10*6/uL [facility] WBC (Bld) [#/Vol] 12.17 10*3/uL [facility] CRP [Mass/Vol]on 07-15-2022 Interpretation and review of laboratory results Abnormal [facility] CRP, Inflammationon 07-15-20 CRP [Mass/Vol] 26.3 mg/L High 0.0 - 10.0 mg/L [facility] ECG 12 Leadon 07-15-2022 Atrial Rate 98 BPM [facility] P [place] 2 degrees [facility] P-R Interval 130 ms [facility] Q-T Interval 352 ms [facility] QRS Duration 72 ms [facility] QTC Calculation (Bezet) 449 ms [facility] R [place] 88 degrees [facility] T [place] 26 degrees [facility] Ventricular Rate 98 BPM [facility] Normal sinus rhythm Normal ECG Confirmed by MEGHAN BRISCOE DO ([id number]) on 07/15/2022 4:00:43 PM [facility] ESR Westergren method (Bld) [Velocity]on 07-15-2022 ESR (Bld) [Velocity] 81 mm/h [facility] Interpretation and review of laboratory results Abnormal [facility] Glucose (Bld) [Mass/Vol]on 09-14-2021 Glucose [Mass/Vol] 80 mg/dL 65 - 99 mg/dL [facility] Interpretation and review of laboratory results Normal [facility] Glucose [Mass/Vol] 85 mg/dL 65 - 99 mg/dL [facility] Interpretation and review of laboratory results Normal [facility] Gold Topon 07-15-2022 Extra Tube Hold for add-ons. [facility] Comment on above: Auto resulted. [facility] [place] Topon 07-15-2022 Extra Tube Hold for add-ons. [facility] Comment on above: Auto resulted. [facility] HCG ( test) Ql (U)o n 07-15-2022 Beta HCG ( test) Ql (U) Dilute urine specimens, as indicated by a low specific gravity (<1.010) may not contain guest experience representative levels of hCG. If is still suspected, a serum test or repeat urine test using a first morning urine specimen should be considered. [facility] Interpretation and review of laboratory results Normal [facility] INR Coag (PPP) [Relative oswald e]on 07-15-2022 Interpretation and review of laboratory results Normal [facility] PT Coag (PPP) [Time] 12.4 s [facility] During the induction phase of oral anticoagulation, the INR may not reflect the anticoagulation status of the patient. Therapeutic ranges for INR's are: Most clinical situations: INR 2.0-3.0 Mechanical Prosthetic Valve: INR 2.5-3.5 Critical: INR >5.0 [facility] Light Blue Topon 07-15-2022 Extra Tube Hold for add-ons. [facility] Comment on above: Auto resulted. [facility] No Panel Informationon 07-15 Extra Tube Hold for add-ons. [facility] Comment on above: Auto resulted. [facility] POC , Urineon 07-15 HCG ( test) Ql (U) Negative Negative [facility] PT/INRon 07-15-2022 INR Coag (PPP) [Relative time] 1.0 {INR} 0.8 - 1.1 [facility] XR Abdomen APon 07-15-2022 EXAMINATION: Abdomen x-ray HISTORY: ORDERING SYSTEM PROVIDED HISTORY: ap eval retained catheter., TECHNOLOGIST PROVIDED HISTORY: Illness/Other Reason for exam: eval retained catheter. Cancer History: Unknown Surgery, RadiationHistory: Yes Encounter Type: Initial Additional signs and symptoms: ORDERING SYSTEM PROVIDED DIAGNOSIS CODES: Z51.89 Visit for wound check Z97.8 Presence of intrathecal baclofen pump COMPARISON: 09/20/2019 TECHNIQUE: A single view the abdomen is submitted. FINDINGS: Evaluation for a reported retained catheter is not optimal on this examination due to overlap by the patient's arms and electronic device overlying the bladder. There are lines and tubes as well as metallic foreign bodies overlying the abdomen and lower chest with. Vokle RIS Juan, Rhina Payne, DO - 07/15/2022 EXAMINATION: Abdomen x-ray HISTORY: ORDERING SYSTEM PROVIDED HISTORY: ap eval retained catheter., TECHNOLOGIST PROVIDED HISTORY: Illness/Other Reason for exam: eval retained catheter. Cancer History: Unknown Surgery, RadiationHistory: Yes Encounter Type: Initial Additional signs and symptoms: ORDERING SYSTEM PROVIDED DIAGNOSIS CODES: Z51.89 Visit for wound check Z97.8 Presence of intrathecal baclofen pump COMPARISON: 09/20/2019 TECHNIQUE: A single view the abdomen is submitted. FINDINGS: Evaluation for a reported retained catheter is not optimal on this examination due to overlap by the patient's arms and electronic device overlying the bladder. There are lines and tubes as well as metallic foreign bodies overlying the abdomen and lower chest with. IMPRESSION: Suboptimal evaluation of the abdomen with too many overlapping structures. Workstation ID: [id number] [facility] Radiology Study observation (narrative) [facility] XR Abdomen APOrdered By: Eleanor Martinez on 07-15-2022 [facility] Work Phone: XR Lumbar Spine 2-3 Views (S tandard)on 07-15-2022 Baclofen pump appears intact as imaged. Workstation ID: [id number] [facility]okle RIS EXAMINATION: XR LUMBAR SPINE 2-3 VIEWS (STANDARD) 07/15/2022 6:27 am HISTORY: ORDERING SYSTEM PROVIDED HISTORY: evaluate baclofen pump, right abdomen, TECHNOLOGIST PROVIDED HISTORY: Illness/Other Reason for exam: evaluate baclofen pump, right abdomen Cancer History: Unknown Surgery, RadiationHistory: Yes Encounter Type: Subsequent/Follow-up Additional signs and symptoms: ORDERING SYSTEM PROVIDED DIAGNOSIS CODES: Z51.89 Visit for wound check Z97.8 Presence of intrathecal baclofen pump COMPARISON: Lumbar spine radiographs from 06/11/2016. PROCEDURE: AP and cross-table lateral radiographs of the lumbar spine FINDINGS: Percutaneous gastrostomy tube in place. Baclofen pump high at the right hemiabdomen with the imaged portion of the catheter intact. Several small portions are obscured by the hardware and not well visualized There is an additional catheter at the thecal sac which appears abandoned. Marrufo juan pablo and screw fixation of the thoracolumbar spine. Heterotopic ossification about the right ischium at site of previously noted osteomyelitis. Fidencio Castro MD - 07/15/2022 EXAMINATION: XR LUMBAR SPINE 2-3 VIEWS (STANDARD) 07/15/2022 6:27 am HISTORY: ORDERING SYSTEM PROVIDED HISTORY: evaluate baclofen pump, right abdomen, TECHNOLOGIST PROVIDED HISTORY: Illness/Other Reason for exam: evaluate baclofen pump, right abdomen Cancer History: Unknown Surgery, RadiationHistory: Yes Encounter Type: Subsequent/Follow-up Additional signs and symptoms: ORDERING SYSTEM PROVIDED DIAGNOSIS CODES: Z51.89 Visit for wound check Z97.8 Presence of intrathecal baclofen pump COMPARISON: Lumbar spine radiographs from 06/11/2016. PROCEDURE: AP and cross-table lateral radiographs of the lumbar spine FINDINGS: Percutaneous gastrostomy tube in place. Baclofen pump high at the right hemiabdomen with the imaged portion of the catheter intact. Several small portions are obscured by the hardware and not well visualized There is an additional catheter at the thecal sac which appears abandoned. Marrufo juan pablo and screw fixation of the thoracolumbar spine. Heterotopic ossification about the right ischium at site of previously noted osteomyelitis. IMPRESSION: Baclofen pump appears intact as imaged. Workstation ID: [id number] [facility] Radiology Study observation (narrative) [facility] XR Lumbar Spine 2-3 Views (S tandard)Ordered By: Fidencio Martinez on 07-15-2022 [facility] Work Phone: XR OR Fluoroscopy Timeon This is an auto finalized result. Please refer to patient chart for further information. Vokle RIS UPPER ENDOSCOPYon 12-22-2021 [facility] Gastroenterology Patient Name: Claudine Joseph Procedure Date: 12/22/2021 8:31 AM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 rate/Area] The eGFR should be used for monitoring renal function only and not for medication dosing. [facility] GFR/1.73 sq M.predicted CKD-EPI (S/P/Bld) [Vol rate/Area] 149 >=60 mL/min/1.73 m2 [facility] Glucose [Mass/Vol] 88 mg/dL 65 - 99 mg/dL [facility] HCO3 [Moles/Vol] 27 mmol/L 21 - 32 mmol/L [facility] Interpretation and review of laboratory results Abnormal [facility] Potassium [Moles/Vol] 4.0 mmol/L 3.5 - 5.1 mmol/L [facility] Sodium [Moles/Vol] 145 mmol/L 135 - 145 mmol/L [facility] Urea nitrogen [Mass/Vol] 11 mg/dL 8 - 25 mg/dL [facility] Urea nitrogen/Creatinine [Mass ratio] 32.4 mg/mg High [facility] Urine Aerobic Cultureon 02-28 Bacteria identified Aer cx Nom (Unsp spec) Three or more colony types; >10,000 CFU/mL mixture of normal urogenital microbiota. None predominant. Possible contamination. Suggest repeat if clinically indicated. [facility] CBC WITH AUTO DIFFERENTIALon 03-21-2020 Basophils (Bld) [#/Vol] 0.10 10*3/uL [facility] Basophils/100 WBC (Bld) 1.3 % [facility] Eosinophils (Bld) [#/Vol] 0.07 10*3/uL [facility] Eosinophils/100 WBC (Bld) 0.9 % [facility] Erythrocyte distribution width (RBC) [Entitic vol] 14.3 % 11.6 - 14.8 % [facility] Hematocrit (Bld) [Volume fraction] 41.2 % 36 - 46 % [facility] Hemoglobin (Bld) [Mass/Vol] 12.0 g/dL 12 - 16 g/dL [facility] Immature granulocytes (Bld) [#/Vol] 0.02 10*3/uL [facility] Immature granulocytes/100 WBC (Bld) 0.30 % [facility] Comment on above: The IG parameter is the percentage of metamyelocytes, myelocytes and promyelocytes. An immature granulocyte count (IG) of 1% or more suggests the possibility of infection, an IG count of 3% is very likely related to an infection. Interpretation and review of laboratory results Abnormal [facility] Lymphocytes (Bld) [#/Vol] 2.26 10*3/uL [facility] Lymphocytes/100 WBC (Bld) 28.4 % [facility] MCH (RBC) [Entitic mass] 25.8 pg Low 26 - 34 pg [facility] MCHC (RBC) [Mass/Vol] 29.1 g/dL Low 31 - 37 g/dL [facility] MCV (RBC) [Entitic vol] 88.6 fL 80 - 100 fL [facility] Monocytes (Bld) [#/Vol] 0.66 10*3/uL [facility] Monocytes/100 WBC (Bld) 8.3 % [facility] Neutrophils (Bld) [#/Vol] 4.84 10*3/uL [facility] Neutrophils/100 WBC (Bld) 60.8 % [facility] Nucleated RBC (Bld) [#/Vol] 0.00 10*3/uL [facility] Nucleated RBC/100 WBC (Bld) [Ratio] 0.0 % [facility] Platelet mean volume (Bld) [Entitic vol] 11.9 fL 9.4 - 12.4 fL [facility] Platelets (Bld) [#/Vol] 208 10*3/uL [facility] RBC (Bld) [#/Vol] 4.65 10*6/uL [facility] WBC (Bld) [#/Vol] 7.95 10*3/uL [facility] COVID-19, Molecularon 2019 Interpretation and review of laboratory results Normal [facility] SARS-CoV-2 Not Detected Not Detected [facility] Comment on above: This test was perfor med under the FDA's Emergency Use Authorization (EUA). Testing was performed using the [employer] ID NOW COVID-19 assay on the ID NOW platform. This test has not been approved for use in asymptomatic patients and its performance in this patient population has not been evaluated. Negative results do not rule out the presence of SARS-CoV-2/COVID-19. Fact sheets for the EUA can be found at the following links: For Healthcare Providers: https://www.fda.gov/media/735485/download For Patients: https://www.fda.gov/media/441693/download CT Abdomen Pelvis With IV Co ntrast Onlyon 03-21-2020 Interface, Aleksander De Leonq - 03/21/2020 7:44 PM EDT EXAMINATION: CT ABDOMEN PELVIS WITH IV CONTRAST ONLY ADDITIONAL CLINICAL INFORMATION: Abdominal pain, acute, nonlocalized. COMPARISON: 01/10/2020. TECHNIQUE: Enhanced helical acquisition was obtained from the lung bases through the pubic symphysis following administration of bolus intravenous contrast (75 mL Isovue-370). Dose reduction techniques were achieved by using automated exposure control and/or adjustment of mA and/or kV according to patient size and/or use of iterative reconstruction technique. FINDINGS: ABDOMINAL CT: The visualized lung bases and the pleural spaces are clear. There is beam-hardening artifact secondary to spinal rods. There is marked dextroconvex scoliotic curvature of the thoracic spine. There has been prior cholecystectomy. Gastrostomy tube appears appropriately positioned. The spleen, pancreas, adrenal glands are unremarkable in appearance. There are multiple subcentimeter nonobstructing right renal calculi. No enlarged lymph nodes are visualized within the abdomen. PELVIC CT: The appendix has a normal appearance. Sage catheter is present. There appears to be diffuse urinary bladder wall thickening, accentuated secondary to decompressed status of the urinary bladder. No ascites or focal intraperitoneal fluid collections are visualized. Numerous scattered air-fluid levels are present throughout the colon. No enlarged lymph nodes are visualized within the pelvis. IMPRESSION: 1. Sage catheter is present within decompressed urinary bladder. There appears to be diffuse urinary bladder wall thickening which appears to be accentuated secondary to the decompressed status of the urinary bladder. Recommend correlation for cystitis with urinalysis findings. 2. Numerous scattered air-fluid levels are present throughout the colon without evidence of bowel obstruction. No inflammatory changes are identified. 3. Appropriate position of the gastrostomy tube. 4. Normal appendix. TJL/lab Workstation ID: [id number] [facility] EXAMINATION: CT ABDO MEN PELVIS WITH IV CONTRAST ONLY ADDITIONAL CLINICAL INFORMATION: Abdominal pain, acute, nonlocalized. COMPARISON: 01/10/2020. TECHNIQUE: Enhanced helical acquisition was obtained from the lung bases through the pubic symphysis following administration of bolus intravenous contrast (75 mL Isovue-370). Dose reduction techniques were achieved by using automated exposure control and/or adjustment of mA and/or kV according to patient size and/or use of iterative reconstruction technique. FINDINGS: ABDOMINAL CT: The visualized lung bases and the pleural spaces are clear. There is beam-hardening artifact secondary to spinal rods. There is marked dextroconvex scoliotic curvature of the thoracic spine. There has been prior cholecystectomy. Gastrostomy tube appears appropriately positioned. The spleen, pancreas, adrenal glands are unremarkable in appearance. There are multiple subcentimeter nonobstructing right renal calculi. No enlarged lymph nodes are visualized within the abdomen. PELVIC CT: The appendix has a normal appearance. Sage catheter is present. There appears to be diffuse urinary bladder wall thickening, accentuated secondary to decompressed status of the urinary bladder. No ascites or focal intraperitoneal fluid collections are visualized. Numerous scattered air-fluid levels are present throughout the colon. No enlarged lymph nodes are visualized within the pelvis. [facility] 1. Sage catheter is present within decompressed urinary bladder. There appears to be diffuse urinary bladder wall thickening which appears to be accentuated secondary to the decompressed status of the urinary bladder. Recommend correlation for cystitis with urinalysis findings. 2. Numerous scattered air-fluid levels are present throughout the colon without evidence of bowel obstruction. No inflammatory changes are identified. 3. Appropriate position of the gastrostomy tube. 4. Normal appendix. TJL/lab Workstation ID: [id number] [facility] Chem 7on 03-21-2020 Anion gap [Moles/Vol] 16 mmol/L 10 - 2 0 mmol/L [facility] Chloride [Moles/Vol] 103 mmol/L 98 - 10 8 mmol/L [facility] Creatinine [Mass/Vol] 0.33 mg/dL Low 0.40 - 1.10 [facility] GFR/1.73 sq M predicted among non-blacks MDRD (S/P/Bld) [Vol rate/Area] The eGFR should be used for monitoring renal function only and not for medication dosing. [facility] GFR/1.73 sq M.predicted CKD-EPI (S/P/Bld) [Vol rate/Area] 150 >=60 mL/min/1.73 m2 [facility] Glucose [Mass/Vol] 85 mg/dL 65 - 99 mg/dL [facility] HCO3 [Moles/Vol] 31 mmol/L 21 - 32 mmol/L [facility] Interpretation and review of laboratory results Abnormal [facility] Potassium [Moles/Vol] 4.3 mmol/L 3.5 - 5.1 mmol/L [facility] Sodium [Moles/Vol] 146 mmol/L High 135 - 145 mmol/L [facility] Urea nitrogen [Mass/Vol] 14 mg/dL 8 - 25 mg/dL [facility] Urea nitrogen/Creatinine [Mass ratio] 42.4 mg/mg High [facility] HCG (QUALITATIVE)on 03-21-20 20 Beta HCG ( test) Ql Negative Negative [facility] Interpretation and review of laboratory results Normal [facility] Negative: The result is less than or equal to 5 mIU/mL of HCG. [facility] Lactic Acid, Plasmaon 2019 Interpretation and review of laboratory results Normal [facility] Lactate [Moles/Vol] 0.9 mmol/L 0.6 - 2 mmol/L [facility] Otheron 03-21-2020 Extra Tube Hold for add-ons. [facility] Comment on above: Auto resulted. URINALYSISon 03-21-2020 Bacteria Auto Ql (U) Many Abnormal None Se en /hpf [facility] Bilirubin Ql (U) Negative Negative [facility] th Calcium oxalate crystals Computer assisted (U) [#/Area] Many Abnormal None Seen /hpf [facility] Clarity Refractometry automated (U) Cloudy Abnormal Clear [facility] Color (U) Yellow Colorless, Yellow [facility] Crystals.amorphous Computer assisted (U) [#/Area] Few Abnormal None Seen, Rare /hpf [facility] Glucose Auto test strip (U) [Mass/Vol] Negative Negative mg/dL [facility] Hemoglobin Auto test strip Ql (U) Negative Negative [facility] Interpretation and review of laboratory results Abnormal [facility] Ketones (U) [Mass/Vol] Negative Negat ivan mg/dL [facility] Leukocyte esterase Auto test strip Ql (U) Large Abnormal Negative [facility] h Mucus Auto (Urine sed) [#/Area] Few Abnormal None Seen, Rare /lpf [facility] Nitrite Auto test strip Ql (U) Negative Negative [facility] pH (U) 8.0 [pH] High [facility] Protein (U) [Mass/Vol] Negative Negat ivan mg/dL [facility] Specific gravity (U) [Rel density] 1.011 [facility] Urobilinogen (U) [Mass/Vol] <2.0 <2.0 mg/dL [facility] WBC Auto (Urine sed) [#/Area] 113 High [facility] Yeast.budding Computer assisted (U) [#/Area] Rare Abnormal None Seen /hpf [facility] Yeast.hyphae Computer assisted (U) [#/Area] Rare Abnormal None Seen /hpf [facility] Microscopic examinat ion is performed on all urinalysis samples and only positive findings are reported. The test for blood on the chemical analytic portion of urinalysis may also be positive due to hemoglobinuria and myoglobinuria and if red blood cells are present they are quantified by microscopic examination. [facility] XR Chest 1 Viewon 03-21-2020 Interface, Rad In Fu ji Speechq - 03/21/2020 4:05 PM EDT EXAMINATION: XR CHEST PA/AP 03/21/2020 3:39 pm HISTORY: ORDERING SYSTEM PROVIDED HISTORY: weakness, TECHNOLOGIST PROVIDED HISTORY: Illness/Other Reason for exam: Weakness Cancer History: Unknown Surgery, RadiationHistory: Yes Encounter Type: Initial Additional signs and symptoms: None ORDERING SYSTEM PROVIDED DIAGNOSIS CODES: COMPARISON: 02/12/2020 FINDINGS: Heart is mildly enlarged. There is a marked scoliotic deformity of the spine with convexity to the right. Her in 10 rods are noted overlying the thoracic and lumbar spine. Grossly no infiltrates are noted. Evaluation of the right mid and upper lung field is limited due to rotation. IMPRESSION: 1. Limited exam due to the patient's condition. 2. Lungs are free of focal infiltrates. 4. Marked scoliotic deformity of the spine with convexity to the right. Workstation ID: [id number] [facility] EXAMINATION: XR CHES T PA/AP 03/21/2020 3:39 pm HISTORY: ORDERING SYSTEM PROVIDED HISTORY: weakness, TECHNOLOGIST PROVIDED HISTORY: Illness/Other Reason for exam: Weakness Cancer History: Unknown Surgery, RadiationHistory: Yes Encounter Type: Initial Additional signs and symptoms: None ORDERING SYSTEM PROVIDED DIAGNOSIS CODES: COMPARISON: 02/12/2020 FINDINGS: Heart is mildly enlarged. There is a marked scoliotic deformity of the spine with convexity to the right. Her in 10 rods are noted overlying the thoracic and lumbar spine. Grossly no infiltrates are noted. Evaluation of the right mid and upper lung field is limited due to rotation. [facility] 1. Limited exam due to the patient's condition. 2. Lungs are free of focal infiltrates. 4. Marked scoliotic deformity of the spine with convexity to the right. Workstation ID: [id number] [facility] Basic Metabolic Panelon 01-28 Anion gap [Moles/Vol] 15 mmol/L 10 - 2 0 mmol/L [facility] Calcium [Mass/Vol] 9.3 mg/dL 8.4 - 10. 2 mg/dL [facility] Chloride [Moles/Vol] 105 mmol/L 98 - 10 8 mmol/L [facility] Creatinine [Mass/Vol] 0.26 mg/dL Low 0.40 - 1.10 [facility] GFR/1.73 sq M predicted among non-blacks MDRD (S/P/Bld) [Vol rate/Area] The eGFR should be used for monitoring renal function only and not for medication dosing. [facility] GFR/1.73 sq M.predicted CKD-EPI (S/P/Bld) [Vol rate/Area] 163 >=60 mL/min/1.73 m2 [facility] Glucose [Mass/Vol] 142 mg/dL High 65 - 99 mg/dL [facility] [facility] HCO3 [Moles/Vol] 26 mmol/L 21 - 32 mmol/L [facility] Interpretation and review of laboratory results Abnormal [facility] Potassium [Moles/Vol] 3.5 mmol/L 3.5 - 5.1 mmol/L [facility] Sodium [Moles/Vol] 142 mmol/L 135 - 145 mmol/L [facility] Urea nitrogen [Mass/Vol] 7 mg/dL Low 8 - 25 mg/dL [facility] Urea nitrogen/Creatinine [Mass ratio] 26.9 mg/mg High [facility] CBC WITH AUTO DIFFERENTIALon 02-14-2020 Basophils (Bld) [#/Vol] 0.12 10*3/uL [facility] Basophils/100 WBC (Bld) 1.0 % [facility] Eosinophils (Bld) [#/Vol] 0.25 10*3/uL [facility] Eosinophils/100 WBC (Bld) 2.0 % [facility] Erythrocyte distribution width (RBC) [Entitic vol] 14.8 % 11.6 - 14.8 % [facility] Hematocrit (Bld) [Volume fraction] 34.5 % Low 36 - 46 % [facility] Hemoglobin (Bld) [Mass/Vol] 9.6 g/dL Low 12 - 16 g/dL [facility] Immature granulocytes (Bld) [#/Vol] 0.04 10*3/uL [facility] Immature granulocytes/100 WBC (Bld) 0.30 % [facility] Comment on above: The IG parameter is the percentage of metamyelocytes, myelocytes and promyelocytes. An immature granulocyte count (IG) of 1% or more suggests the possibility of infection, an IG count of 3% is very likely related to an infection. Interpretation and review of laboratory results Abnormal [facility] Lymphocytes (Bld) [#/Vol] 2.56 10*3/uL [facility] Lymphocytes/100 WBC (Bld) 20.8 % [facility] MCH (RBC) [Entitic mass] 26.3 pg 26 - 34 pg [facility] MCHC (RBC) [Mass/Vol] 27.8 g/dL Low 31 - 37 g/dL [facility] MCV (RBC) [Entitic vol] 94.5 fL 80 - 100 fL [facility] Monocytes (Bld) [#/Vol] 0.75 10*3/uL [facility] Monocytes/100 WBC (Bld) 6.1 % [facility] Neutrophils (Bld) [#/Vol] 8.56 10*3/uL High [facility] Neutrophils/100 WBC (Bld) 69.8 % [facility] Nucleated RBC (Bld) [#/Vol] 0.00 10*3/uL [facility] Nucleated RBC/100 WBC (Bld) [Ratio] 0.0 % [facility] Platelet mean volume (Bld) [Entitic vol] 11.5 fL 9.4 - 12.4 fL [facility] Platelets (Bld) [#/Vol] 195 10*3/uL [facility] RBC (Bld) [#/Vol] 3.65 10*6/uL Low [facility] [place] [facility] WBC (Bld) [#/Vol] 12.28 10*3/uL [facility] Basic Metabolic Panelon - Anion gap [Moles/Vol] 12 mmol/L 10 - 2 0 mmol/L [facility] Calcium [Mass/Vol] 8.6 mg/dL 8.4 - 10. 2 mg/dL [facility] Chloride [Moles/Vol] 109 mmol/L High 98 - 10 8 mmol/L [facility] Creatinine [Mass/Vol] 0.24 mg/dL Low 0.40 - 1.10 [facility] GFR/1.73 sq M predicted among non-blacks MDRD (S/P/Bld) [Vol rate/Area] The eGFR should be used for monitoring renal function only and not for medication dosing. [facility] GFR/1.73 sq M.predicted CKD-EPI (S/P/Bld) [Vol rate/Area] 167 >=60 mL/min/1.73 m2 [facility] Glucose [Mass/Vol] 93 mg/dL 65 - 99 mg/dL [facility] HCO3 [Moles/Vol] 27 mmol/L 21 - 32 mmol/L [facility] Interpretation and review of laboratory results Abnormal [facility] Potassium [Moles/Vol] 2.8 mmol/L Low 3.5 - 5.1 mmol/L [facility] Sodium [Moles/Vol] 145 mmol/L 135 - 145 mmol/L [facility] Urea nitrogen [Mass/Vol] 9 mg/dL 8 - 25 mg/dL [facility] Urea nitrogen/Creatinine [Mass ratio] 37.5 mg/mg High [facility] CBC WITH AUTO DIFFERENTIALon 02-13-2020 Basophils (Bld) [#/Vol] 0.07 10*3/uL [facility] Basophils/100 WBC (Bld) 0.6 % [facility] Eosinophils (Bld) [#/Vol] 0.01 10*3/uL [facility] Eosinophils/100 WBC (Bld) 0.1 % [facility] Erythrocyte distribution width (RBC) [Entitic vol] 14.6 % 11.6 - 14.8 % [facility] Hematocrit (Bld) [Volume fraction] 30.2 % Low 36 - 46 % [facility] Hemoglobin (Bld) [Mass/Vol] 8.8 g/dL Low 12 - 16 g/dL [facility] Immature granulocytes (Bld) [#/Vol] 0.08 10*3/uL [facility] Immature granulocytes/100 WBC (Bld) 0.60 % [facility] Comment on above: The IG parameter is the percentage of metamyelocytes, myelocytes and promyelocytes. An immature granulocyte count (IG) of 1% or more suggests the possibility of infection, an IG count of 3% is very likely related to an infection. Interpretation and review of laboratory results Abnormal [facility] Lymphocytes (Bld) [#/Vol] 2.72 10*3/uL [facility] Lymphocytes/100 WBC (Bld) 21.6 % [facility] MCH (RBC) [Entitic mass] 26.6 pg 26 - 34 pg [facility] MCHC (RBC) [Mass/Vol] 29.1 g/dL Low 31 - 37 g/dL [facility] MCV (RBC) [Entitic vol] 91.2 fL 80 - 100 fL [facility] Monocytes (Bld) [#/Vol] 0.92 10*3/uL High [facility] Monocytes/100 WBC (Bld) 7.3 % [facility] Neutrophils (Bld) [#/Vol] 8.82 10*3/uL High [facility] Neutrophils/100 WBC (Bld) 69.8 % [facility] Nucleated RBC (Bld) [#/Vol] 0.00 10*3/uL [facility] Nucleated RBC/100 WBC (Bld) [Ratio] 0.0 % [facility] Platelet mean volume (Bld) [Entitic vol] 10.7 fL 9.4 - 12.4 fL [facility] Platelets (Bld) [#/Vol] 296 10*3/uL [facility] RBC (Bld) [#/Vol] 3.31 10*6/uL Low [facility] [place] [facility] WBC (Bld) [#/Vol] 12.62 10*3/uL High [facility] ECG 12-LEADon 02-13-2020 Atrial Rate 124 BPM [facility] P [place] 56 degrees [facility] P-R Interval 166 ms [facility] Q-T Interval 300 ms [facility] QRS Duration 74 ms [facility] QTC Calculation (Bezet) 431 ms [facility] R [place] 83 degrees [facility] T [place] 12 degrees [facility] Ventricular Rate 124 BPM [facility] th Sinus tachycardia T wave abnormality, consider anterolateral ischemia Abnormal ECG Confirmed by RENETTA RIVERA MD ([id number]) on 02/13/2020 7:43:18 AM [facility] Lactic Acid, Plasmaon 2019 Interpretation and review of laboratory results Normal [facility] Lactate [Moles/Vol] 0.9 mmol/L 0.6 - 2 mmol/L [facility] CBC WITH AUTO DIFFERENTIALon 02-12-2020 Basophils (Bld) [#/Vol] 0.09 10*3/uL [facility] Basophils/100 WBC (Bld) 0.5 % [facility] Eosinophils (Bld) [#/Vol] 0.01 10*3/uL [facility] Eosinophils/100 WBC (Bld) 0.1 % [facility] Erythrocyte distribution width (RBC) [Entitic vol] 14.4 % 11.6 - 14.8 % [facility] Hematocrit (Bld) [Volume fraction] 40.2 % 36 - 46 % [facility] Hemoglobin (Bld) [Mass/Vol] 11.7 g/dL Low 12 - 16 g/dL [facility] Immature granulocytes (Bld) [#/Vol] 0.18 10*3/uL [facility] Immature granulocytes/100 WBC (Bld) 1.00 % [facility] Comment on above: The IG parameter is the percentage of metamyelocytes, myelocytes and promyelocytes. An immature granulocyte count (IG) of 1% or more suggests the possibility of infection, an IG count of 3% is very likely related to an infection. Interpretation and review of laboratory results Abnormal [facility] Lymphocytes (Bld) [#/Vol] 0.90 10*3/uL [facility] Lymphocytes/100 WBC (Bld) 4.9 % [facility] MCH (RBC) [Entitic mass] 26.4 pg 26 - 34 pg [facility] MCHC (RBC) [Mass/Vol] 29.1 g/dL Low 31 - 37 g/dL [facility] MCV (RBC) [Entitic vol] 90.7 fL 80 - 100 fL [facility] Monocytes (Bld) [#/Vol] 0.15 10*3/uL Low [facility] Monocytes/100 WBC (Bld) 0.8 % [facility] Neutrophils (Bld) [#/Vol] 17.04 10*3/uL High [facility] Neutrophils/100 WBC (Bld) 92.7 % [facility] Nucleated RBC (Bld) [#/Vol] 0.00 10*3/uL [facility] Nucleated RBC/100 WBC (Bld) [Ratio] 0.0 % [facility] Platelet mean volume (Bld) [Entitic vol] 11.8 fL 9.4 - 12.4 fL [facility] Platelets (Bld) [#/Vol] 238 10*3/uL [facility] RBC (Bld) [#/Vol] 4.43 10*6/uL [facility] [place] [facility] WBC (Bld) [#/Vol] 18.37 10*3/uL [facility] COVID-19, Molecularon 2019 Interpretation and review of laboratory results Normal [facility] SARS-CoV-2 Not Detected Not Detected [facility] Comment on above: This test was perfor med under the FDA's Emergency Use Authorization (EUA). Testing was performed using the [employer] ID NOW COVID-19 assay on the ID NOW platform. This test has not been approved for use in asymptomatic patients and its performance in this patient population has not been evaluated. Negative results do not rule out the presence of SARS-CoV-2/COVID-19. Fact sheets for the EUA can be found at the following links: For Healthcare Providers: https://www.fda.gov/media/262210/download For Patients: https://www.fda.gov/media/107534/download Chem 702-12-2020 Anion gap [Moles/Vol] 16 mmol/L 10 - 2 0 mmol/L [facility] Chloride [Moles/Vol] 97 mmol/L Low 98 - 10 8 mmol/L [facility] Creatinine [Mass/Vol] 0.33 mg/dL Low 0.40 - 1.10 [facility] GFR/1.73 sq M predicted among non-blacks MDRD (S/P/Bld) [Vol rate/Area] The eGFR should be used for monitoring renal function only and not for medication dosing. [facility] GFR/1.73 sq M.predicted CKD-EPI (S/P/Bld) [Vol rate/Area] 150 >=60 mL/min/1.73 m2 [facility] Glucose [Mass/Vol] 135 mg/dL High 65 - 99 mg/dL [facility] HCO3 [Moles/Vol] 35 mmol/L High 21 - 32 mmol/L [facility] Potassium [Moles/Vol] 3.6 mmol/L 3.5 - 5.1 mmol/L [facility] Sodium [Moles/Vol] 144 mmol/L 135 - 145 mmol/L [facility] Urea nitrogen [Mass/Vol] 19 mg/dL 8 - 25 mg/dL [facility] Urea nitrogen/Creatinine [Mass ratio] 57.6 mg/mg High [facility] Hepatic Function Panel (LFT) on 02-12-2020 Albumin [Mass/Vol] 4.5 g/dL 3.2 - 5.2 g/dL [facility] ALP [Catalytic activity/Vol] 254 U/L High 40 - 140 U/L [facility] ALT [Catalytic activity/Vol] 35 U/L 0 - 40 U/L [facility] AST [Catalytic activity/Vol] 21 U/L 0 - 45 U/L [facility] Bilirubin [Mass/Vol] 0.3 mg/dL 0 - 1.3 mg/dL [facility] Bilirubin.conjugated [Mass/Vol] 0.1 mg/dL 0 - 0.4 mg/dL [facility] Interpretation and review of laboratory results Abnormal [facility] Protein [Mass/Vol] 8.3 g/dL High 6 - 8 g/dL [facility] Lactic Acid, Plasmaon 2019 Interpretation and review of laboratory results Normal [facility] Lactate [Moles/Vol] 1.5 mmol/L 0.6 - 2 mmol/L [facility] Lactate [Moles/Vol] 4.0 mmol/L High 0.6 - 2 mmol/L [facility] Lipaseon 02-12-2020 Interpretation and review of laboratory results Normal [facility] Lipase [Catalytic activity/Vol] 21 U/L 15 - 65 U/L [facility] Otheron 02-12-2020 Extra Tube Hold for add-ons[facility] Comment on above: Auto resulted. Interpretation and review of laboratory results Abnormal [facility] URINALYSISon 02-12-2020 Bacteria Auto Ql (U) Many Abnormal None Se en /hpf [facility] Bilirubin Ql (U) Negative Negative [facility] th Calcium oxalate crystals Computer assisted (U) [#/Area] Few Abnormal None Seen /hpf [facility] Clarity Refractometry automated (U) Cloudy Abnormal Clear [facility] Color (U) Colette Abnormal Colorless, Yellow [facility] Crystals.amorphous Computer assisted (U) [#/Area] Few Abnormal None Seen, Rare /hpf [facility] Glucose Auto test strip (U) [Mass/Vol] Negative Negative mg/dL [facility] Hemoglobin Auto test strip Ql (U) Negative Negative [facility] Interpretation and review of laboratory results Abnormal [facility] Ketones (U) [Mass/Vol] Negative Negat ivan mg/dL [facility] Leukocyte esterase Auto test strip Ql (U) Small Abnormal Negative [facility] h Mucus Auto (Urine sed) [#/Area] Many Abnormal None Seen, Rare /lpf [facility] Nitrite Auto test strip Ql (U) Negative Negative [facility] pH (U) 8.0 [pH] High [facility] Protein (U) [Mass/Vol] 100 Abnormal Negat ivan mg/dL [facility] RBC Auto (Urine sed) [#/Area] 21 High [facility] Specific gravity (U) [Rel density] 1.030 High [facility] Urobilinogen (U) [Mass/Vol] <2.0 <2.0 mg/dL [facility] WBC Auto (Urine sed) [#/Area] 37 High [facility] Microscopic examinat ion is performed on all urinalysis samples and only positive findings are reported. The test for blood on the chemical analytic portion of urinalysis may also be positive due to hemoglobinuria and myoglobinuria and if red blood cells are present they are quantified by microscopic examination. [facility] XR Chest 1 Viewon 02-12-2020 1. Limited exam due to the patient's condition. 2. Small amount of bibasilar atelectasis versus early infiltrates. Grossly no consolidation. Workstation ID: [id number] [facility] EXAMINATION: XR CHES T PA/AP 02/12/2020 2:59 pm HISTORY: ORDERING SYSTEM PROVIDED HISTORY: possible aspiration pneumonia, TECHNOLOGIST PROVIDED HISTORY: Illness/Other Reason for exam: possible aspiration pneumonia Cancer History: Unknown Surgery, RadiationHistory: Yes Encounter Type: Initial Additional signs and symptoms: ORDERING SYSTEM PROVIDED DIAGNOSIS CODES: A41.9 Sepsis, due to unspecified organism, unspecified whether acute organ dysfunction present (HCC) J69.0 Aspiration pneumonia, unspecified aspiration pneumonia type, unspecified laterality, unspecified part of lung (HCC) T14.8XXA Wound infection L08.9 Wound infection Z96.[address] N39.0 Acute UTI COMPARISON: 01/22/2020 FINDINGS: There is a marked scoliotic deformity of the spine with convexity to the right. Rods are noted overlying the spine. Heart appears normal in size. Because of the patient's marked scoliosis evaluation of the lung negron is limited. There is slight increased density in both bases. Findings could represent bibasilar atelectasis or early infiltrates. No focal areas of consolidation are noted. [facility], Rad In Fu ji Speechq - 02/12/2020 3:09 PM EDT EXAMINATION: XR CHEST PA/AP 02/12/2020 2:59 pm HISTORY: ORDERING SYSTEM PROVIDED HISTORY: possible aspiration pneumonia, TECHNOLOGIST PROVIDED HISTORY: Illness/Other Reason for exam: possible aspiration pneumonia Cancer History: Unknown Surgery, RadiationHistory: Yes Encounter Type: Initial Additional signs and symptoms: ORDERING SYSTEM PROVIDED DIAGNOSIS CODES: A41.9 Sepsis, due to unspecified organism, unspecified whether acute organ dysfunction present (HCC) J69.0 Aspiration pneumonia, unspecified aspiration pneumonia type, unspecified laterality, unspecified part of lung (HCC) T14.8XXA Wound infection L08.9 Wound infection Z96.[address] N39.0 Acute UTI COMPARISON: 01/22/2020 FINDINGS: There is a marked scoliotic deformity of the spine with convexity to the right. Rods are noted overlying the spine. Heart appears normal in size. Because of the patient's marked scoliosis evaluation of the lung negron is limited. There is slight increased density in both bases. Findings could represent bibasilar atelectasis or early infiltrates. No focal areas of consolidation are noted. IMPRESSION: 1. Limited exam due to the patient's condition. 2. Small amount of bibasilar atelectasis versus early infiltrates. Grossly no consolidation. Workstation ID: [id number] [facility] XR Chest 1 Viewon 01-22-2020 1. Right arm PICC wh ich extends superiorly into the internal jugular vein. Recommend retraction by at least 8 cm followed by repositioning into the SVC. 2. Limited study but no definite acute cardiopulmonary process. SAY/rlc Workstation ID: [id number] [facility] EXAMINATION: CHEST RADIOGRAPH HISTORY: Confirm placement for existing PICC line Injury/Trauma or Illness?:Illness/Other How long have you had these symptoms (acute/chronic)?:Acute Reason for exam?:Confirm placement for existing PICC line History of cancer?:Unknown Surgeries, chemotherapy, or radiation?:Yes T82.898A Occlusion of peripherally inserted central catheter (PICC) line, initial encounter (HCC) COMPARISON: Chest 10/21/2019. TECHNIQUE: An AP radiograph was performed of the chest. FINDINGS: The study is severely limited due to patient's scoliosis. SUPPORT APPARATUS: There is a right upper extremity PICC. It extends into the subclavian vein and then superiorly into the internal jugular vein. CARDIOMEDIASTINAL SILHOUETTE: Poorly visualized but likely normal and stable. AIRWAYS/LUNGS: Poor visualization especially of the right lung but no definite focal consolidation. PLEURAL SPACES: No pleural effusion or pneumothorax. BONES AND SOFT TISSUES: Severe dextroscoliosis of thoracic spine with Marrufo rods in place. [facility] Interface, Rad In Fu ji Speechq - 01/22/2020 6:46 PM EDT EXAMINATION: CHEST RADIOGRAPH HISTORY: Confirm placement for existing PICC line Injury/Trauma or Illness?:Illness/Other How long have you had these symptoms (acute/chronic)?:Acute Reason for exam?:Confirm placement for existing PICC line History of cancer?:Unknown Surgeries, chemotherapy, or radiation?:Yes T82.898A Occlusion of peripherally inserted central catheter (PICC) line, initial encounter (HCC) COMPARISON: Chest 10/21/2019. TECHNIQUE: An AP radiograph was performed of the chest. FINDINGS: The study is severely limited due to patient's scoliosis. SUPPORT APPARATUS: There is a right upper extremity PICC. It extends into the subclavian vein and then superiorly into the internal jugular vein. CARDIOMEDIASTINAL SILHOUETTE: Poorly visualized but likely normal and stable. AIRWAYS/LUNGS: Poor visualization especially of the right lung but no definite focal consolidation. PLEURAL SPACES: No pleural effusion or pneumothorax. BONES AND SOFT TISSUES: Severe dextroscoliosis of thoracic spine with Marrufo rods in place. IMPRESSION: 1. Right arm PICC which extends superiorly into the internal jugular vein. Recommend retraction by at least 8 cm followed by repositioning into the SVC. 2. Limited study but no definite acute cardiopulmonary process. [facility] Workstation ID: [id number] [facility] Basic Metabolic Panelon 10-01 Anion gap [Moles/Vol] 15 mmol/L 10 - 2 0 mmol/L [facility] Calcium [Mass/Vol] 9.1 mg/dL 8.4 - 10. 2 mg/dL [facility] Chloride [Moles/Vol] 100 mmol/L 98 - 10 8 mmol/L [facility] Creatinine [Mass/Vol] 0.28 mg/dL Low 0.40 - 1.10 [facility] GFR/1.73 sq M predicted among non-blacks MDRD (S/P/Bld) [Vol rate/Area] The eGFR should be used for monitoring renal function only and not for medication dosing. [facility] GFR/1.73 sq M.predicted CKD-EPI (S/P/Bld) [Vol rate/Area] 159 >=60 mL/min/1.73 m2 [facility] Glucose [Mass/Vol] 117 mg/dL High 65 - 99 mg/dL [facility] HCO3 [Moles/Vol] 33 mmol/L High 21 - 32 mmol/L [facility] Interpretation and review of laboratory results Abnormal [facility] Potassium [Moles/Vol] 3.2 mmol/L Low 3.5 - 5.1 mmol/L [facility] Sodium [Moles/Vol] 145 mmol/L 135 - 145 mmol/L [facility] Urea nitrogen [Mass/Vol] 10 mg/dL 8 - 25 mg/dL [facility] Urea nitrogen/Creatinine [Mass ratio] 35.7 mg/mg High [facility] CBCon 10-23-2019 Erythrocyte distribution width (RBC) [Entitic vol] 14.6 % 11.6 - 14.8 % [facility] Hematocrit (Bld) [Volume fraction] 33.5 % Low 36 - 46 % [facility] Hemoglobin (Bld) [Mass/Vol] 9.4 g/dL Low 12 - 16 g/dL [facility] Interpretation and review of laboratory results Abnormal [facility] MCH (RBC) [Entitic mass] 27.1 pg 26 - 34 pg [facility] MCHC (RBC) [Mass/Vol] 28.1 g/dL Low 31 - 37 g/dL [facility] MCV (RBC) [Entitic vol] 96.5 fL 80 - 100 fL [facility] Nucleated RBC (Bld) [#/Vol] 0.00 10*3/uL [facility] Nucleated RBC/100 WBC (Bld) [Ratio] 0.0 % [facility] Platelet mean volume (Bld) [Entitic vol] 12.5 fL 9 - 15.5 fL [facility] Platelets (Bld) [#/Vol] 183 10*3/uL [facility] Comment on above: Platelets clumped on peripheral smear. Results may be affected RBC (Bld) [#/Vol] 3.47 10*6/uL Low [facility] [place] [facility] WBC (Bld) [#/Vol] 10.48 10*3/uL [facility] Metabolic Pane nate 10-23-2019 Albumin [Mass/Vol] 3.3 g/dL 3.2 - 5.2 g/dL [facility] ALP [Catalytic activity/Vol] 125 U/L 40 - 140 U/L [facility] ALT [Catalytic activity/Vol] 22 U/L 0 - 40 U/L [facility] Anion gap [Moles/Vol] 19 mmol/L 10 - 2 0 mmol/L [facility] AST [Catalytic activity/Vol] 31 U/L 0 - 45 U/L [facility] Comment on above: Slightly Hemolyzed Bilirubin [Mass/Vol] mg/dL 0 - 1.3 mg/dL [facility] Calcium [Mass/Vol] 9.3 mg/dL 8.4 - 10. 2 mg/dL [facility] Chloride [Moles/Vol] 109 mmol/L High 98 - 10 8 mmol/L [facility] Creatinine [Mass/Vol] 0.29 mg/dL Low 0.40 - 1.10 [facility] GFR/1.73 sq M predicted among non-blacks MDRD (S/P/Bld) [Vol rate/Area] The eGFR should be used for monitoring renal function only and not for medication dosing. [facility] GFR/1.73 sq M.predicted CKD-EPI (S/P/Bld) [Vol rate/Area] 157 >=60 mL/min/1.73 m2 [facility] Glucose [Mass/Vol] 127 mg/dL High 65 - 99 mg/dL [facility] HCO3 [Moles/Vol] 28 mmol/L 21 - 32 mmol/L [facility] Interpretation and review of laboratory results Abnormal [facility] Potassium [Moles/Vol] 4.8 mmol/L 3.5 - 5.1 mmol/L [facility] Comment on above: Slightly Hemolyzed Protein [Mass/Vol] 6.1 g/dL 6 - 8 g/dL [facility] Sodium [Moles/Vol] 151 mmol/L High 135 - 145 mmol/L [facility] Urea nitrogen [Mass/Vol] 9 mg/dL 8 - 25 mg/dL [facility] Urea nitrogen/Creatinine [Mass ratio] 31.0 mg/mg High [facility] Urine Aerobic Cultureon 10-01 Bacteria identified Aer cx Nom (Unsp spec) >100,000 CFU/mL Enterococcus faecalis Abnormal [facility] Bacteria identified Aer cx Nom (Unsp spec) >100,000 CFU/mL Pseudomonas aeruginosa Abnormal [facility] Interpretation and review of laboratory results Abnormal [facility] Bacteria identified Aer cx Nom (Unsp spec) >100,000 CFU/mL Enterococcus faecalis Abnormal [facility] Bacteria identified Aer cx Nom (Unsp spec) >100,000 CFU/mL Pseudomonas aeruginosa Abnormal [facility] Interpretation and review of laboratory results Abnormal [facility] Basic Metabolic Panelon 10-01 Anion gap [Moles/Vol] 18 mmol/L 10 - 2 0 mmol/L [facility] Calcium [Mass/Vol] 9.1 mg/dL 8.4 - 10. 2 mg/dL [facility] Chloride [Moles/Vol] 113 mmol/L High 98 - 10 8 mmol/L [facility] Creatinine [Mass/Vol] 0.34 mg/dL Low 0.40 - 1.10 [facility] GFR/1.73 sq M predicted among non-blacks MDRD (S/P/Bld) [Vol rate/Area] The eGFR should be used for monitoring renal function only and not for medication dosing. [facility] GFR/1.73 sq M.predicted CKD-EPI (S/P/Bld) [Vol rate/Area] 149 >=60 mL/min/1.73 m2 [facility] Glucose [Mass/Vol] 91 mg/dL 65 - 99 mg/dL [facility] HCO3 [Moles/Vol] 24 mmol/L 21 - 32 mmol/L [facility] Interpretation and review of laboratory results Abnormal [facility] Potassium [Moles/Vol] 4.5 mmol/L 3.5 - 5.1 mmol/L [facility] Sodium [Moles/Vol] 150 mmol/L High 135 - 145 mmol/L [facility] Urea nitrogen [Mass/Vol] 12 mg/dL 8 - 25 mg/dL [facility] Urea nitrogen/Creatinine [Mass ratio] 35.3 mg/mg High [facility] CBCon 10-22-2019 Erythrocyte distribution width (RBC) [Entitic vol] 14.7 % 11.6 - 14.8 % [facility] Hematocrit (Bld) [Volume fraction] 35.8 % Low 36 - 46 % [facility] Hemoglobin (Bld) [Mass/Vol] 10.1 g/dL Low 12 - 16 g/dL [facility] Interpretation and review of laboratory results Abnormal [facility] MCH (RBC) [Entitic mass] 27.7 pg 26 - 34 pg [facility] MCHC (RBC) [Mass/Vol] 28.2 g/dL Low 31 - 37 g/dL [facility] MCV (RBC) [Entitic vol] 98.1 fL 80 - 100 fL [facility] Nucleated RBC (Bld) [#/Vol] 0.00 10*3/uL [facility] Nucleated RBC/100 WBC (Bld) [Ratio] 0.0 % [facility] Platelet mean volume (Bld) [Entitic vol] 11.9 fL 9 - 15.5 fL [facility] Platelets (Bld) [#/Vol] 213 10*3/uL [facility] Comment on above: Platelets clumped on peripheral smear. Results may be affected RBC (Bld) [#/Vol] 3.65 10*6/uL Low [facility] [place] [facility] WBC (Bld) [#/Vol] 9.73 10*3/uL [facility] Comment on above: Peripheral smear rev iewed manually MRSA DNA Amplified Probeon 0 10-22-2019 Interpretation and review of laboratory results Normal [facility] MRSA DNA CAMILO+probe Ql (Unsp spec) Negative MRSA NEGATIVE [facility] BMPon 10-21-2019 Anion gap [Moles/Vol] 17 mmol/L 10 - 2 0 mmol/L [facility] Calcium [Mass/Vol] 9.5 mg/dL 8.4 - 10. 2 mg/dL [facility] Chloride [Moles/Vol] 109 mmol/L High 98 - 10 8 mmol/L [facility] Creatinine [Mass/Vol] 0.54 mg/dL 0.40 - 1.10 [facility] GFR/1.73 sq M predicted among non-blacks MDRD (S/P/Bld) [Vol rate/Area] The eGFR should be used for monitoring renal function only and not for medication dosing. [facility] GFR/1.73 sq M.predicted CKD-EPI (S/P/Bld) [Vol rate/Area] 128 >=60 mL/min/1.73 m2 [facility] Glucose [Mass/Vol] 176 mg/dL High 65 - 99 mg/dL [facility] HCO3 [Moles/Vol] 30 mmol/L 21 - 32 mmol/L [facility] Interpretation and review of laboratory results Abnormal [facility] Potassium [Moles/Vol] 3.5 mmol/L 3.5 - 5.1 mmol/L [facility] Sodium [Moles/Vol] 152 mmol/L High 135 - 145 mmol/L [facility] Urea nitrogen [Mass/Vol] 22 mg/dL 8 - 25 mg/dL [facility] Urea nitrogen/Creatinine [Mass ratio] 40.7 mg/mg High [facility] CBC WITH AUTO DIFFERENTIALon 10-21-2019 Basophils (Bld) [#/Vol] 0.11 10*3/uL [facility] Basophils/100 WBC (Bld) 0.7 % [facility] Eosinophils (Bld) [#/Vol] 0.01 10*3/uL [facility] Eosinophils/100 WBC (Bld) 0.1 % [facility] Erythrocyte distribution width (RBC) [Entitic vol] 14.6 % 11.6 - 14.8 % [facility] Hematocrit (Bld) [Volume fraction] 41.9 % 36 - 46 % [facility] Hemoglobin (Bld) [Mass/Vol] 12.6 g/dL 12 - 16 g/dL [facility] Immature granulocytes (Bld) [#/Vol] 0.08 10*3/uL [facility] Immature granulocytes/100 WBC (Bld) 0.50 % [facility] Comment on above: The IG parameter is the percentage of metamyelocytes, myelocytes, and promyelocytes. Interpretation and review of laboratory results Abnormal [facility] Lymphocytes (Bld) [#/Vol] 1.35 10*3/uL [facility] Lymphocytes/100 WBC (Bld) 9.0 % [facility] MCH (RBC) [Entitic mass] 27.3 pg 26 - 34 pg [facility] MCHC (RBC) [Mass/Vol] 30.1 g/dL Low 31 - 37 g/dL [facility] MCV (RBC) [Entitic vol] 90.9 fL 80 - 100 fL [facility] Monocytes (Bld) [#/Vol] 0.61 10*3/uL [facility] Monocytes/100 WBC (Bld) 4.1 % [facility] Neutrophils (Bld) [#/Vol] 12.88 10*3/uL High [facility] Neutrophils/100 WBC (Bld) 85.6 % [facility] Nucleated RBC (Bld) [#/Vol] 0.00 10*3/uL [facility] Nucleated RBC/100 WBC (Bld) [Ratio] 0.0 % [facility] Platelets (Bld) [#/Vol] [facility] Comment on above: Platelets clumped on smear but appear normal. If clinically indicated, please request a citrate platelet count RBC (Bld) [#/Vol] 4.61 10*6/uL [facility] [place] [facility] WBC (Bld) [#/Vol] 15.04 10*3/uL [facility] Comment on above: Peripheral smear rev iewed manually Chem 710-21-2019 Anion gap [Moles/Vol] 14 mmol/L 10 - 2 0 mmol/L [facility] Chloride [Moles/Vol] 111 mmol/L High 98 - 10 8 mmol/L [facility] Creatinine [Mass/Vol] 0.29 mg/dL Low 0.40 - 1.10 [facility] GFR/1.73 sq M predicted among non-blacks MDRD (S/P/Bld) [Vol rate/Area] The eGFR should be used for monitoring renal function only and not for medication dosing. [facility] GFR/1.73 sq M.predicted CKD-EPI (S/P/Bld) [Vol rate/Area] 157 >=60 mL/min/1.73 m2 [facility] Glucose [Mass/Vol] 99 mg/dL 65 - 99 mg/dL [facility] HCO3 [Moles/Vol] 29 mmol/L 21 - 32 mmol/L [facility] Interpretation and review of laboratory results Abnormal [facility] Potassium [Moles/Vol] 3.7 mmol/L 3.5 - 5.1 mmol/L [facility] Sodium [Moles/Vol] 150 mmol/L High 135 - 145 mmol/L [facility] Urea nitrogen [Mass/Vol] 20 mg/dL 8 - 25 mg/dL [facility] Urea nitrogen/Creatinine [Mass ratio] 69.0 mg/mg High [facility] Hepatic Function Panel (LFT) on 10-21-2019 Albumin [Mass/Vol] 4.2 g/dL 3.2 - 5.2 g/dL [facility] ALP [Catalytic activity/Vol] 153 U/L High 40 - 140 U/L [facility] ALT [Catalytic activity/Vol] 25 U/L 0 - 40 U/L [facility] AST [Catalytic activity/Vol] 18 U/L 0 - 45 U/L [facility] Bilirubin [Mass/Vol] mg/dL 0 - 1.3 mg/dL [facility] Bil[facility].conjugated [Mass/Vol] mg/dL 0 - 0.4 mg/dL [facility] Interpretation and review of laboratory results Abnormal [facility] Protein [Mass/Vol] 7.4 g/dL 6 - 8 g/dL [facility] alth INFLUENZA A,B RAPID MOLECULA Joel 10-21-2019 FLUAV RNA CAMILO+probe Ql (Unsp spec) Not Detected Not Detected [facility] FLUBV RNA CAMILO+probe Ql (Unsp spec) Not Detected Not Detected [facility] Interpretation and review of laboratory results Normal [facility] Test Method: Nucleic Acid Amplification [facility] Lactic Acid, Plasmaon 2019 Interpretation and review of laboratory results Abnormal [facility] Lactate [Moles/Vol] 3.5 mmol/L High 0.6 - 2 mmol/L [facility] Otheron 10-21-2019 Extra Tube Hold for add-ons. [facility] Comment on above: Auto resulted. Reflex Lactic Acid, Plasmaon 10-21-2019 Interpretation and review of laboratory results Normal [facility] Lactate [Moles/Vol] 1.5 mmol/L 0.6 - 2 mmol/L [facility] URINALYSISon 10-21-2019 Bacteria Auto Ql (U) Rare Abnormal None Se en /hpf [facility] Bilirubin Ql (U) Negative Negative [facility] th Calcium oxalate crystals Computer assisted (U) [#/Area] Rare Abnormal None Seen /hpf [facility] Clarity Refractometry automated (U) Cloudy Abnormal Clear [facility] Color (U) Yellow Colorless, Yellow [facility] Glucose Auto test strip (U) [Mass/Vol] Negative Negative mg/dL [facility] Hemoglobin Auto test strip Ql (U) Negative Negative [facility] Interpretation and review of laboratory results Abnormal [facility] Ketones (U) [Mass/Vol] Negative Negat ivan mg/dL [facility] Leukocyte esterase Auto test strip Ql (U) Large Abnormal Negative [facility] Mucus Auto (Urine sed) [#/Area] Few Abnormal None Seen, Rare /lpf [facility] Nitrite Auto test strip Ql (U) Negative Negative [facility] pH (U) 5.0 [pH] [facility] Protein (U) [Mass/Vol] 100 Abnormal Negat ivan mg/dL [facility] RBC Auto (Urine sed) [#/Area] 47 High [facility] Specific gravity (U) [Rel density] 1.032 High [facility] Urobilinogen (U) [Mass/Vol] <2.0 <2.0 mg/dL [facility] WBC Auto (Urine sed) [#/Area] 140 High [facility] Microscopic examinat ion is performed on all urinalysis samples and only positive findings are reported. The test for blood on the chemical analytic portion of urinalysis may also be positive due to hemoglobinuria and myoglobinuria and if red blood cells are present they are quantified by microscopic examination. [facility] XR Chest 1 Viewon 10-21-2019 Marked scoliotic curvature of the thoracic spine. No definite dense focal consolidation is seen. However, please note this is a limited examination due to marked scoliosis. If clinically indicated, please consider a chest CT for better evaluation. [employer] Workstation ID: [id number] [facility] Interface, Rad In Fu ji Speechq - 10/21/2019 4:18 PM EST EXAMINATION: XR CHEST PA/AP 10/21/2019 3:02 pm HISTORY: ORDERING SYSTEM PROVIDED HISTORY: fever, TECHNOLOGIST PROVIDED HISTORY: Illness/Other Reason for exam: Fever Cancer History: Unknown Surgery, RadiationHistory: Yes Encounter Type: Unknown Additional signs and symptoms: ORDERING SYSTEM PROVIDED DIAGNOSIS CODES: COMPARISON: Chest x-ray of 09/19/2019. FINDINGS: Marked scoliotic curvature of the thoracic spine is again seen. No definite focal consolidation is seen. Stable appearance enlarged cardiac silhouette is seen. No obvious dense focal consolidation, pneumothorax, or pleural effusion is seen. IMPRESSION: Marked scoliotic curvature of the thoracic spine. No definite dense focal consolidation is seen. However, please note this is a limited examination due to marked scoliosis. If clinically indicated, please consider a chest CT for better evaluation. [employer] Workstation ID: [id number] [facility] EXAMINATION: XR CHES T PA/AP 10/21/2019 3:02 pm HISTORY: ORDERING SYSTEM PROVIDED HISTORY: fever, TECHNOLOGIST PROVIDED HISTORY: Illness/Other Reason for exam: Fever Cancer History: Unknown Surgery, RadiationHistory: Yes Encounter Type: Unknown Additional signs and symptoms: ORDERING SYSTEM PROVIDED DIAGNOSIS CODES: COMPARISON: Chest x-ray of 09/19/2019. FINDINGS: Marked scoliotic curvature of the thoracic spine is again seen. No definite focal consolidation is seen. Stable appearance enlarged cardiac silhouette is seen. No obvious dense focal consolidation, pneumothorax, or pleural effusion is seen. [facility] Imm/Pathon 09-25-2019 Bacteria identified Cx Nom (Bld) [facility]-2019 Bacteria identified Cx Nom (Bld) No Growth [facility] Potassium Levelon 09-24-2019 Interpretation and review of laboratory results Normal [facility] Potassium [Moles/Vol] 4.3 mmol/L 3.5 - 5.1 mmol/L [facility] Comment on above: Slightly Hemolyzed Sputum Aerobic Cultureon Bacteria identified Aer cx Nom (Sput) Rare Growth Normal Respiratory Fang [facility] Bacteria identified Aer cx Nom (Sput) Moderate Growth Pseudomonas aeruginosa Abnormal [facility] Interpretation and review of laboratory results Abnormal [facility] Microscopic observation Gram stain Nom (Sput) Few Epithelial Cells [facility] Microscopic observation Gram stain Nom (Sput) Moderate WBC [facility] Microscopic observation Gram stain Nom (Sput) Few Mixed Fang [facility] Upper Respiratory Aerobic Cu ltureon 09-23-2019 Bacteria identified Aer cx Nom (Nose) Light Growth Normal Respiratory Fang [facility] Bacteria identified Aer cx Nom (Nose) Moderate Growth Pseudomonas aeruginosa Abnormal [facility] Bacteria identified Aer cx Nom (Nose) Heavy Growth Enterobacter cloacae complex Abnormal [facility] Interpretation and review of laboratory results Abnormal [facility] Microscopic observation Gram stain Nom (Unsp spec) Many Mixed Fang [facility] Microscopic observation Gram stain Nom (Unsp spec) Few Bronchial Epithelial Cells [facility] Microscopic observation Gram stain Nom (Unsp spec) Few Epithelial Cells [facility] Microscopic observation Gram stain Nom (Unsp spec) Moderate WBC [facility] Urine Aerobic Cultureon 08-31 Bacteria identified Aer cx Nom (Unsp spec) >100,000 CFU/mL Enterococcus faecalis Abnormal [facility] Bacteria identified Aer cx Nom (Unsp spec) 50,000-100,000 CFU/mL Pseudomonas aeruginosa Abnormal [facility] Interpretation and review of laboratory results Abnormal [facility] Basic Metabolic Panelon 08-31 Anion gap [Moles/Vol] 17 mmol/L 10 - 2 0 mmol/L [facility] Calcium [Mass/Vol] 9.1 mg/dL 8.4 - 10. 2 mg/dL [facility] Chloride [Moles/Vol] 98 mmol/L 98 - 10 8 mmol/L [facility] Creatinine [Mass/Vol] 0.34 mg/dL Low 0.4 - 1.1 mg/dL [facility] GFR/1.73 sq M predicted among non-blacks MDRD (S/P/Bld) [Vol rate/Area] The eGFR should be used for monitoring renal function only and not for medication dosing. [facility] GFR/1.73 sq M.predicted CKD-EPI (S/P/Bld) [Vol rate/Area] 149 >=60 mL/min/1.73 m2 [facility] Glucose [Mass/Vol] 90 mg/dL 65 - 99 mg/dL [facility] HCO3 [Moles/Vol] 30 mmol/L 21 - 32 mmol/L [facility] Interpretation and review of laboratory results Abnormal [facility] Potassium [Moles/Vol] 3.0 mmol/L Low 3.5 - 5.1 mmol/L [facility] Sodium [Moles/Vol] 142 mmol/L 135 - 145 mmol/L [facility] Urea nitrogen [Mass/Vol] 6 mg/dL Low 8 - 25 mg/dL [facility] Urea nitrogen/Creatinine [Mass ratio] 17.6 mg/mg [facility] CBCon 09-22-2019 Erythrocyte distribution width (RBC) [Entitic vol] 14.9 % High 11.6 - 14.8 % [facility] Hematocrit (Bld) [Volume fraction] 30.4 % Low 36 - 46 % [facility] Hemoglobin (Bld) [Mass/Vol] 9.5 g/dL Low 12 - 16 g/dL [facility] Interpretation and review of laboratory results Abnormal [facility] MCH (RBC) [Entitic mass] 27.8 pg 26 - 34 pg [facility] MCHC (RBC) [Mass/Vol] 31.3 g/dL 31 - 37 g/dL [facility] MCV (RBC) [Entitic vol] 88.9 fL 80 - 100 fL [facility] Comment on above: Results checked Nucleated RBC (Bld) [#/Vol] 0.00 10*3/uL [facility] Nucleated RBC/100 WBC (Bld) [Ratio] 0.0 % [facility] Platelet mean volume (Bld) [Entitic vol] 12.3 fL 9 - 15.5 fL [facility] Platelets (Bld) [#/Vol] 203 10*3/uL [facility] RBC (Bld) [#/Vol] 3.42 10*6/uL Low [facility] [place] [facility] WBC (Bld) [#/Vol] 7.35 10*3/uL [facility] MRSA Culture/Screenon 2019 MRSA isol Org specific cx Ql (Unsp spec) No Methicillin Resistant Staphylococcus (MRSA) Isolated [facility] Urine Aerobic Cultureon 08-31 Bacteria identified Aer cx Nom (Unsp spec) One or more organisms < 10,000 CFU/mL of normal urogenital microbiota. Not processed further. [facility] CBCon 09-21-2019 Erythrocyte distribution width (RBC) [Entitic vol] 15.6 % High 11.6 - 14.8 % [facility] Hematocrit (Bld) [Volume fraction] 31.5 % Low 36 - 46 % [facility] Hemoglobin (Bld) [Mass/Vol] 9.2 g/dL Low 12 - 16 g/dL [facility] Interpretation and review of laboratory results Abnormal [facility] MCH (RBC) [Entitic mass] 27.5 pg 26 - 34 pg [facility] MCHC (RBC) [Mass/Vol] 29.2 g/dL Low 31 - 37 g/dL [facility] MCV (RBC) [Entitic vol] 94.3 fL 80 - 100 fL [facility] Nucleated RBC (Bld) [#/Vol] 0.00 10*3/uL [facility] Nucleated RBC/100 WBC (Bld) [Ratio] 0.0 % [facility] Platelet mean volume (Bld) [Entitic vol] 12.4 fL 9 - 15.5 fL [facility] Platelets (Bld) [#/Vol] 174 10*3/uL [facility] RBC (Bld) [#/Vol] 3.34 10*6/uL Low [facility] [place] [facility] WBC (Bld) [#/Vol] 11.68 10*3/uL [facility] Comprehensive Metabolic Pane nate 09-21-2019 Albumin [Mass/Vol] 3.2 g/dL 3.2 - 5.2 g/dL [facility] ALP [Catalytic activity/Vol] 126 U/L 40 - 140 U/L [facility] ALT [Catalytic activity/Vol] 15 U/L 0 - 40 U/L [facility] Anion gap [Moles/Vol] 17 mmol/L 10 - 2 0 mmol/L [facility] AST [Catalytic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 recollection in BLUE TOP (sodium citrate) tube for accurate count. Performed By: #### 2 2747-0, 42703-1f0, 15301-4, 34522-5 #### [facility] [address] [place] [address] RBC (Bld) [#/Vol] 4.06 million/mcL Normal 3.80-5.10 [facility] Comment on above: Performed By: #### 2 2747-0, 49894-8o1, 08447-3, 27725-7 #### [facility] [address] [place] [address] WBC (Bld) [#/Vol] 12.0 thou/mcL High 4.6-10.2 [facility] Comment on above: Performed By: #### 2 2747-0, 17527-2z5, 27531-0, 16742-3 #### [facility] [address] [place] [address] GFRaaon 07-18-2019 GFR/1.73 sq M predicted among blacks MDRD (S/P/Bld) [Vol rate/Area] mL/min/{1.73_m2} Normal [facility] Comment on above: Result Comment: The MDRD equation has not been validated for those over 70 years, women, patients with serious co-morbid conditions, or with extremes of body size, muscle mass of nutritional status. Performed By: #### 3 9797-6, 74652-3, 94947-8q6, 05174-4 #### [facility] [address] [place] [address] GFRbbon 07-18-2019 GFR/1.73 sq M predicted among non-blacks MDRD (S/P/Bld) [Vol rate/Area] mL/min/{1.73_m2} Normal [facility] Comment on above: Performed By: #### 3 9797-6, 60322-0, 50599-2a0, 14017-8 #### [facility] [address] [place] [address] Vancomycin Level Peakon 06-30 Vancomycin peak [Mass/Vol] <3.5 Abnormal 30.0-60.0 [facility] Comment on above: Performed By: #### 3 9796-8 #### [facility] [address] [place] [address] Otheron 05-22-2019 This is an auto finalized result. Please refer to patient chart for further information. [facility] Basic Metabolic Panelon 04-30 Anion gap [Moles/Vol] 10.0 mmol/L Normal 6.0-18.0 [facility] Comment on above: Performed By: #### 2 2747-0, 63712-1j9, 68031-9, 13929-6 #### [facility] [address] [place] [address] Calcium [Mass/Vol] 9.2 mg/dL Normal 8.9-10.3 [facility] Comment on above: Performed By: #### 2 2747-0, 55256-7c4, 51923-8, 68908-6 #### [facility] [address] [place] [address] Chloride [Moles/Vol] 99 mmol/L Normal 98-107 [facility] Comment on above: Performed By: #### 2 2747-0, 76346-7s2, 48492-7, 05886-2 #### [facility] [address] [place] [address] CO2 [Moles/Vol] 33 mmol/L High 22-32 [facility] Comment on above: Performed By: #### 2 2747-0, 55826-0k8, 43065-3, 44124-9 #### [facility] [address] [place] [address] Creatinine [Mass/Vol] 0.37 mg/dL Low 0.60-1.30 [facility] Comment on above: Performed By: #### 2 2747-0, 96127-2g2, 04411-0, 78460-7 #### [facility] [address] [place] [address] Glucose [Mass/Vol] 99 mg/dL Normal 70-99 [facility] Comment on above: Result Comment: U pdated ADA Reference Range A normal fasting glucose concentration is less than 100 mg/dL. An impaired fasting glucose concentration is 100-125 mg/dL. A provisional diagnosis of diabetes mellitus can be made when a fasting glucose concentration is greater than 125 mg/dL. Performed By: #### 2 2747-0, 68445-1i2, 34339-9, 34841-0 #### [facility] [address] [place] [address] Potassium [Moles/Vol] 3.7 mmol/L Normal 3.6-5.1 [facility] Comment on above: Performed By: #### 2 2747-0, 04711-4v8, 92636-0, 89398-4 #### [facility] [address] [place] [address] Sodium [Moles/Vol] 142 mmol/L Normal 136-145 [facility] Comment on above: Performed By: #### 2 2747-0, 80050-3r3, 42898-6, 64790-0 #### [facility] [address] [place] [address] Urea nitrogen (BldV) [Mass/Vol] 18 mg/dL Normal 8-20 [facility] Comment on above: Performed By: #### 2 2747-0, 58441-6m9, 36399-8, 68726-2 #### [address] [address] CBC with Differentialon 04-30 0-2018 Basophils (Bld) [#/Vol] 0.10 thou/mcL Normal 0.00-0.20 [facility] Comment on above: Performed By: #### 5 7021-8 #### [address] [address] Basophils/100 WBC (Bld) 0.8 % Normal 0.0-2.0 [facility] Comment on above: Performed By: #### 5 7021-8 #### [address] [address] Eosinophils (Bld) [#/Vol] 0.10 thou/mcL Normal 0.00-0.70 [facility] Comment on above: Performed By: #### 5 7021-8 #### [facility] [address] [place] [address] Eosinophils/100 WBC (Bld) 1.0 % Normal 0.0-7.0 [facility] Comment on above: Performed By: #### 5 7021-8 #### [facility] [address] [place] [address] Erythrocyte distribution width (RBC) [Entitic vol] 14.9 % High 11.0-14.8 [facility] Comment on above: Performed By: #### 5 7021-8 #### [facility] [address] [place] [address] Hematocrit (Bld) [Volume fraction] 35.7 % Normal 35.0-45.0 [facility] Comment on above: Performed By: #### 5 7021-8 #### [facility] [address] [place] [address] Hemoglobin (Bld) [Mass/Vol] 11.6 g/dL Low 12.0-16.0 [facility] Comment on above: Performed By: #### 5 7021-8 #### [facility] [address] [place] [address] Lymphocytes (Bld) [#/Vol] 2.50 thou/mcL Normal 1.00-4.80 [facility] Comment on above: Performed By: #### 5 7021-8 #### [facility] [address] [place] [address] 30975 Lymphocytes/100 WBC (Bld) 23.2 % Normal 22.0-44.0 [facility] Comment on above: Performed By: #### 5 7021-8 #### [facility] [address] [place] [address] 51086 MCH (RBC) [Entitic mass] 28.8 Picograms Normal 27.0-34.0 [facility] Comment on above: Performed By: #### 5 7021-8 #### [facility] [address] [place] [address] 11377 MCHC (RBC) [Mass/Vol] 32.5 g/dL Normal 32.0-36.0 [facility] Comment on above: Performed By: #### 5 7021-8 #### [facility] [address] [place] [address] 30891 MCV (RBC) [Entitic vol] 88.6 fL Normal 80.0-97.0 [facility] Comment on above: Performed By: #### 5 7021-8 #### [facility] [address] [place] [address] 62131 Monocytes (Bld) [#/Vol] 0.70 thou/mcL Normal 0.00-0.90 [facility] Comment on above: Performed By: #### 5 7021-8 #### [facility] [address] [place] [address] 00716 Monocytes/100 WBC (Bld) 6.7 % Normal 0.0-12.0 [facility] Comment on above: Performed By: #### 5 7021-8 #### [facility] [address] [place] [address] 66040 Neutrophils (Bld) [#/Vol] 7.30 thou/mcL Normal 1.80-7.70 [facility] Comment on above: Performed By: #### 5 7021-8 #### [facility] [address] [place] [address] 16893 Neutrophils/100 WBC (Bld) 68.3 % Normal 40.0-70.0 [facility] Comment on above: Performed By: #### 5 7021-8 #### [address] [address] Platelet mean volume (Bld) [Entitic vol] NOTPERF Abnormal 6.2-12.1 [facility] Comment on above: Performed By: #### 5 7021-8 #### [address] [address] Platelets (Bld) [#/Vol] SEENOTE Abnormal 142-424 [facility] Comment on above: Result Comment: Plat elets clumped on slide. Appear adequate. Suggest recollection in BLUE TOP (sodium citrate) tube for accurate count. Performed By: #### 5 7021-8 #### [address] [address] RBC (Bld) [#/Vol] 4.03 million/mcL Normal 3.80-5.10 [facility] Comment on above: Performed By: #### 5 7021-8 #### [facility] [address] [place] [address] 23300 WBC (Bld) [#/Vol] 10.7 thou/mcL High 4.6-10.2 [facility] Comment on above: Performed By: #### 5 7021-8 #### [facility] [address] [place] [address] GFRaaon 05-09-2019 GFR/1.73 sq M predicted among blacks MDRD (S/P/Bld) [Vol rate/Area] mL/min/{1.73_m2} Normal [facility] Comment on above: Result Comment: The MDRD equation has not been validated for those over 70 years, women, patients with serious co-morbid conditions, or with extremes of body size, muscle mass of nutritional status. Performed By: #### 2 2747-0, 32181-1s6, 09174-0, 15904-2 #### [facility] [address] [place] [address] GFRbbon 05-09-2019 GFR/1.73 sq M predicted among non-blacks MDRD (S/P/Bld) [Vol rate/Area] mL/min/{1.73_m2} Normal [facility] Comment on above: Performed By: #### 2 2747-0, 38058-0o7, 04956-7, 98209-6 #### [facility] [address] [place] [address] Gentamicin Level Troughon Gentamicin trough [Mass/Vol] mg/L Abnormal 0.0-2.0 [facility] Comment on above: Performed By: #### 2 2747-0, 89248-3i7, 60411-8, 69172-0 #### [facility] [address] [place] [address] BMPon 05-04-2019 Anion gap [Moles/Vol] 16 mmol/L 10 - 2 0 mmol/L [facility] Calcium [Mass/Vol] 10.4 mg/dL High 8.4 - 10. 2 mg/dL [facility] Chloride [Moles/Vol] 105 mmol/L 98 - 10 8 mmol/L [facility] Creatinine [Mass/Vol] 0.32 mg/dL Low 0.4 - 1.1 mg/dL [facility] GFR/1.73 sq M predicted among non-blacks MDRD (S/P/Bld) [Vol rate/Area] The eGFR should be used for monitoring renal function only and not for medication dosing. [facility] GFR/1.73 sq M.predicted CKD-EPI (S/P/Bld) [Vol rate/Area] 152 >=60 mL/min/1.73 m2 [facility] Glucose [Mass/Vol] 134 mg/dL High 65 - 99 mg/dL [facility] HCO3 [Moles/Vol] 37 mmol/L High 21 - 32 mmol/L [facility] Interpretation and review of laboratory results Abnormal [facility] Potassium [Moles/Vol] 3.8 mmol/L 3.5 - 5.1 mmol/L [facility] Sodium [Moles/Vol] 154 mmol/L High 135 - 145 mmol/L [facility] Urea nitrogen [Mass/Vol] 22 mg/dL 8 - 25 mg/dL [facility] Urea nitrogen/Creatinine [Mass ratio] 68.8 mg/mg High [facility] CBC WITH AUTO DIFFERENTIALon 05-04-2019 Basophils (Bld) [#/Vol] 0.10 10*3/uL [facility] Basophils/100 WBC (Bld) 1.1 % [facility] Eosinophils (Bld) [#/Vol] 0.05 10*3/uL [facility] Eosinophils/100 WBC (Bld) 0.6 % [facility] Erythrocyte distribution width (RBC) [Entitic vol] 14.5 % 11.6 - 14.8 % [facility] Hematocrit (Bld) [Volume fraction] 44.7 % 36 - 46 % [facility] Hemoglobin (Bld) [Mass/Vol] 12.9 g/dL 12 - 16 g/dL [facility] Immature granulocytes (Bld) [#/Vol] 0.03 10*3/uL [facility] Immature granulocytes/100 WBC (Bld) 0.30 % [facility] Comment on above: The IG parameter is the percentage of metamyelocytes, myelocytes, and promyelocytes. Interpretation and review of laboratory results Abnormal [facility] Lymphocytes (Bld) [#/Vol] 2.39 10*3/uL [facility] Lymphocytes/100 WBC (Bld) 27.1 % [facility] MCH (RBC) [Entitic mass] 28.2 pg 26 - 34 pg [facility] MCHC (RBC) [Mass/Vol] 28.9 g/dL Low 31 - 37 g/dL [facility] MCV (RBC) [Entitic vol] 97.8 fL 80 - 100 fL [facility] Monocytes (Bld) [#/Vol] 0.87 10*3/uL [facility] Monocytes/100 WBC (Bld) 9.9 % [facility] Neutrophils (Bld) [#/Vol] 5.39 10*3/uL [facility] Neutrophils/100 WBC (Bld) 61.0 % [facility] Nucleated RBC (Bld) [#/Vol] 0.00 10*3/uL [facility] Nucleated RBC/100 WBC (Bld) [Ratio] 0.0 % [facility] Platelet mean volume (Bld) [Entitic vol] 13.0 fL 9 - 15.5 fL [facility] Platelets (Bld) [#/Vol] 120 10*3/uL Low [facility] RBC (Bld) [#/Vol] 4.57 10*6/uL [facility] WBC (Bld) [#/Vol] 8.83 10*3/uL [facility] [place] [facility] Otheron 05-04-2019 Extra Tube Hold for add-ons. [facility] Comment on above: Auto resulted. Basic Metabolic Panelon Anion gap molar conc 17 mmol/L 10 - 20 mmol/L [facility] Calcium mass conc 9.7 mg/dL 8.4 - 10.2 mg/dL [facility] Chloride molar conc 95 mmol/L Low 98 - 108 mmol/L [facility] Creatinine mass conc 0.22 mg/dL Low 0.4 - 1 .1 mg/dL [facility] GFR/1.73 sq M predicted among non-blacks MDRD vol rate/area (S/P/Bld) The eGFR should be used for monitoring renal function only and not for medication dosing. [facility] GFR/1.73 sq M.predicted CKD-EPI vol rate/area (S/P/Bld) 173 >=60 mL/min/1.73 m2 [facility] Glucose mass conc 140 mg/dL High 65 - 99 mg/dL [facility] HCO3 molar conc 29 mmol/L 21 - 32 mmol/L [facility] Interpretation and review of laboratory results Abnormal [facility] Potassium molar conc 4.0 mmol/L 3.5 - 5 .1 mmol/L [facility] Sodium molar conc 137 mmol/L 135 - 145 mmol/L [facility] Urea nitrogen mass conc 14 mg/dL 8 - 25 mg/dL [facility] Urea nitrogen/Creatinine mass ratio 63.6 mg/mg High [facility] CBC WITH AUTO DIFFERENTIALon 12-05-2018 Basophils #/vol (Bld) 0.10 10*3/uL [facility] Basophils/100 WBC (Bld) 1.1 % [facility] Eosinophils #/vol (Bld) 0.15 10*3/uL [facility] Eosinophils/100 WBC (Bld) 1.6 % [facility] Erythrocyte distribution width Entitic volume (RBC) 14.5 % 11.6 - 14.8 % [facility] Hematocrit Volume Fraction (Bld) 35.8 % Low 36 - 46 % [facility] Hemoglobin mass conc (Bld) 11.5 g/dL Low 12 - 16 g/dL [facility] Immature granulocytes #/vol (Bld) 0.06 10*3/uL [facility] Immature granulocytes/100 WBC (Bld) 0.60 % [facility] Comment on above: The IG parameter is the percentage of metamyelocytes, myelocytes, and promyelocytes. Interpretation and review of laboratory results Abnormal [facility] Lymphocytes #/vol (Bld) 2.11 10*3/uL [facility] Lymphocytes/100 WBC (Bld) 22.6 % [facility] MCH Entitic mass (RBC) 29.9 pg 26 - 34 pg [facility] MCHC mass conc (RBC) 32.1 g/dL 31 - 37 g/dL [facility] MCV Entitic volume (RBC) 93.0 fL 80 - 100 fL [facility] Monocytes #/vol (Bld) 0.79 10*3/uL [facility] Monocytes/100 WBC (Bld) 8.5 % [facility] Neutrophils #/vol (Bld) 6.12 10*3/uL [facility] Neutrophils/100 WBC (Bld) 65.6 % [facility] Nucleated RBC #/vol (Bld) 0.00 10*3/uL [facility] Nucleated RBC/100 WBC Ratio (Bld) 0.0 % [facility] Platelet mean volume Entitic volume (Bld) 12.1 fL 9 - 15.5 fL [facility] Platelets #/vol (Bld) 216 10*3/uL [facility] RBC #/vol (Bld) 3.85 10*6/uL [facility] WBC #/vol (Bld) 9.33 10*3/uL [facility] TISSUE EXAMon 12-05-2018 Case Report Surgical Pathology Report Case: [id number] Authorizing Provider: Rad Luque MD Collected: 12/02/2018 11:43 AM Ordering Location: [facility] Received: 12/02/2018 01:34 PM Hospital Periop Pathologist: Mago Faria MD Specimen: Ischium, Right, RIGHT ISCHIUM CULTURE [facility] Clinical information t1mgsKVzRBUxaBRmTaO yMDAw MCEkw9pvFVCctRLyZpVvVgIy MyKpDijnhPBtENNbWuNin6pe f074zFExk3coJAHiAlP0kXIa AINlgUTjK948w5vdk8aflzJz cJX4SLHwRJE9FBlqaiHblnP2 VOunsGKmYlW7LGispiFmSFyq evGutrYnXjz6KYTmS749FZI9 zElmb5ryLXC1DVSaESIbTiBs Fd4knJTsU067LRUhUAGIJLSw ePh0DDBidgRidlYkaZKSg634 P404p0uhTZAjayWkmNkPiyfb f8pcG884RIBegKWoccSdIaJf PHMmfUFmuZA4WFYmPP1yxfsn OqTpQY1mcbdgHcTxDW9weju2 TVS6QHzwBZMiZzQ0NKBdxGNi GXBswXheZTpul927ZBT5RYoz d8xqp4yhrAOoTdm4ENCfLdNw BxuvOVhmm3Lbp4lhETXzli9r EWZ6gHOvfYkzy1Q0cHIlNELh nIYkzhKfUDKgCqT2ZFvrSZ2w nt74KLPbWOW2wg1toXCnrQsb arNzeIWoVCkmE6UcTSVep548 GDAaE9CpSSQmh1Q3qyZzBoGa BTKxiAJ9ugI0EKUtXIe4jKOy gyD0hhSuwDPtQ6stoL27TwBm bYJrI7IpfQ66WaZdkAMrY5Rg sN9xDAFgKW9eaisov3pvVKG4 YHrgSUOrZPW7NbUaBNEbg7Dm teqfDOVmt4VrU2WveIecC31j wQwfJ96qVLKhlAdndQ8ksDpz qV0rVyChAsHrBEmaqOptbQKf blxmMFxmczIwXGxhbmcxMDMz TWtrV2vhIgUpNZVkaEgmNQhe k2FqOPCbRMZnZkTmJydqcFQd mQXubPe1bSClw1Jib260KZfe dGlzLiBccGFyfQ== [facility] Pathology report final diagnosis Narrative w9nzlLNeQICuvQNtVqGsJXMu BSCfb9jzGDUhtHFaQwSrXtZb RePlVgqxfULsXACwCpRyj7ei d634zZYzy5wgVDPsPhL4eNTy KHWsoHZfP979GBKtFIiwa2rq q4OqDINbsGEzd5E7WCTAdrkd lBu2lTqiO75ro8F1FbykG1dv LMLwVHHfU0QeVY7oXPGmWea0 HNE4RME7ASSsLNIwI9FpAG2b MIAmvLSbJSjiyiWuYeCeF4Lb LA45KRirpHLxAiVqA085OCY9 kDxje1rlCST8ZXCtTHOsOfOk Ns1rpSLuD602BXLfOILHGDYr pVg6ODDmnpAkjpWfdKOCd468 S267v9hhBDGyyeXnuFzUolyq g6wfX602UCOmkRUhytSjUaSr TAXfuCYxnKR9HVFhHQ9lwujp JwXcMS2oscrzOgMkUY9mmkv7 KQT9ZUxuGNZkAcO6UJNbkXFw AEEvcPlfVUgju976HQP0KSyp t9vuz5bwxBQnTrw8EWAbHaGm JpqtOVwvi8Qvi5zdJOMxpz9p RNG7bBMwrJgjx5J4tEJbLAXb zBFlkcTmSEPbuc74mCGncHMh nZZxhn7moaWglSPzmACyVFW4 cHNocnRuXGZldDRcYWVuZGRv Z5lwSgOwfrFxZ7ndM6DeTDZg QSAhEONlFdViwyVmp2Wbu2Tv vXUqaPw9r3gnOBYdGPFdkFrr h5bxIWB0IDKfJ5B6pWDrc8vc HYvgOUSckUL6kxpsEStdFXLk cwU1bflpURkpQZHcbSE9adY6 KKUadCShW7EazT6gBKHvRQvz UTFdpxy8DyPzEy8zxIIwxIYr l4AnfNPwBDsuR81bq798GFOv ogJuJ3pmxFWxabgfdSWejmiq DQwogvP1JKMaFRLlJYjsWXGh XGZzMjBcbGFuZzEwMzNcaGlj uOmhYGnuOzBuSNKqZVaxA7uw ZjBcZnMyMFxwYXJccGFyZFxz x6TgruSooCwwPIDeEZo8lhGn ghtnxel1iYWnpXrmEDCmpZqo fE3aAkVdAfQtJAszpYHudpai MVxmczIyXGxhbmcxMDMzXGhp E6tiUiArGKYnzItqNEwgh5Js XGYxXGNmMlxmczIyXGIgUmln bSUsjVPtcYi7qMYlm96lGMUf eB3wj5ddxFokhP1bAcTqQnAk KvyrYT9uCShjwADmZVXpUJIm A4liAcGgxV1ryFfuHEgfEgCl ZnMyMlxsdHJjaFxiIDpccGxh eP6mYtGoGjKyQVvtCC6yIYnj jDGjQCCoYLNkF4ajMkFzuU2j aFxmMVxjZjNcZnMyMFxsdHJj pFckLYPjrDrmZtImfVblqD8j ZjBcZnMyNFxwbGFpblxmMVxm kvFrDWrsfzr4NXpmA4oeDoYp ZFDvgKjiBCove7BkYCMyFAKd XevswrDvWAh1zxZnUBAfG1aw x57dNaDlv2Axm172GTjieUue LlxwbGFpblxmMVxmczIyXGxh wvehDQAlHYojB6zbHpMdZZMn wWfqRUmfg8NuGECvEXBeMywt czIyXGJccGFyIEJlbmlnbiBz t7K6AIOdy7W2XN0rgMyqsO3g XbEbNtXoYWinBW1eRDHeD7ah mTQnPKIsQPDtV8wzVoSznU3i aFxmMFxmczIwXHBhclxwYXJ9 [facility] report gross observation Narrative c8iqrEFjZLBhvDHwXpMwJGWl XEWlq0dfJPVzfNGwBaCrJuDv CeRhRclqoAVfMIRiXhPal1vp y134hFByi3njMWEeGlI2hNCv CNWsoFRcV038GVQuDIvsll4p FP5kRKVqnXBfl4U0GMLUatht gUs3x2cyAsKiPpA9dRKuQOwr G9hdmxWjuRZkRFGdZQp4dR62 PYMzdG9wuBXfUDmkufZjFPyf qoCrdiFqEul3ZPFpK9suHZZm JJBdH5ElUG7fYQFeZnn3VBY8 GJM5OMUlXATrLNffynRtxkE1 ZNcfnNAkPeZ2MXm1r8qraAgx ZGLnBBG9h7bzFHnkxpUeEX2o tk2sqVu3n1sfduRnEDLgELLi uTSNXOTnK7WklQxuJk7pbBo6 hLllOxwgHIP0Bmm2QP6oec54 sdn4lEbhBYAdmdbtQoR7GUof BAPkikhqWNa6JJspFFHunZqg MFxtYXJncjcyMFxtYXJndDE0 FTRfhCFuX6TbMKLeUCkwELNk asf3VlKnWn7urIErfIVjza5g om00EZZ1m3VttMfeMAJ3NRY3 CoKiEl0rnGHuOWKlDC4sLwKy xWShGRBzeb59sVnyNYfdqgRb jG1qMyJnTGIupOSvAWZyIHKp Q6gkGaYvwuIbQ6wlR1EsMJXn RJXkTAGpXgOhfeNfu6Pdm9Yu cGHglNs8u7oqSFSiCCSdfRmc w9tgXFV5IFOhO9N8vCFli8fc IDfoSXCcwRU9wjavIFbsZHJk qvA6seilVTgxEQGhcRV7noP2 VKJtuOCuT7RfiH7gUIFpBGpl XHAxyyo8MbLjVo5tkFJumZDt d7JfwCHpINjkL56th362VXRw ndKaY9mnoXRezdyewGHyuntv MFxmczIwXHFsXHBsYWluXGYw OPHsBoYxdNhveG5vToSrPsPk PObdPN4cLKPpQ3nghCVfIYDy JCIbV5qgFhGndJ4nrJfoJDlc ZjFcZnMyMFxsdHJjaCBSZWNl pKGzYJKsdzYaaDHckTztuH7o AbHwGyCeEYQufuVty1Zew2Zy iZUggAr7UUP7Tb2xvCXtYLNk zcAhw4BxEAvmtqLbcFjqpJ8u YpVvOcBsRUleUA5uPXFaA6lk kYJoTUDlARSfL3keYuGtfB4a aFxmMVxjZjFcZnMyMFxsdHJj hDBhJXFcnMBxJNWcwPiepA5t PvHwRzSjTTroOK8oYTTjU7kq fQCpABRbYTIpY8shOxTtbN5i bWgtQPugMzYuBbMxKTfjbv73 ASK6f0plsXBbBHmpUquxeNJa cfA2QHzYDDRXTEmGVpGwRG6w PUxJTktCRUdJTnwzODAwMXww uWWUKOpRD4q6NISSJN9aRLkn Wrx3ZB37VGYkHNPosNWiZIsn V230UOQyEOejWTPwCKQzYtAo bGFuZzEwMzNcaGljaFxmMVxk DlTjHRGxGNkxS6kxDoQkO7Xh ZVSoXaMsmZKiiBIpdTQXv4Jg cnRzLCBNZWxpbmRhIFJccGxh rG0ePuOaWzDpUItdEQ6kCUWn U7bgkHYtJDWfDKDkE1coRuRb kJ9xuUymOKzgZhKgFxNkMAjx cg17YKA3e1tkvKTwRFpcYowl gETkwnN7CHyUBFIJBEbIBlGr JL6aHMvWDkuBIjL9JvoiNQC8 PQeNWwiGZin1dJDREGalLphf OOP9tUU5o5kftBSpm7e4WKcz JOA7pXlucQNbawbeADtyduCv INhleopvVCZeZUgzI2toWlSj DWJieXpgQHcyz9UkALHzCDRx FBjtmiQqRPf7haEjCHBiYJ4p XKDvy5baezJ6UIPbNwubzRQd xptjThyqtxSoUKStE5g1EInn N2lejD5beZenkI2aCkPhNkCs DZunZB8zFWAeH3wdsKTmQVOi YMKjU9rtEcIklL4wmGooBUyh ZjFcZnMyMFxsdHJjaCAiXHBs YWluXGYyXGZzMjAgIGFyZSB0 uFXcYHXyzvYvA0OuEJZhoIbi H7BdZZ6dGQDmCH0faLFbcIZy JLMdb4W9hZJvDLMlwFYsPDI7 TVHnv3G7VBXqjdVhUy2aQPqy Xd5dGYcpNG83VBotSA02OXBy XSioBMCrS9MzV8D8CC7mDUPk fERUCeWpTVVzS3UgC1hyzOZo JrKvHWHwjxmrNOYoM7oII1TC R1xcRYVkqQPzFAPyyaNTti8c ncMaqNScoZ5nxYssclYtEKTf g9RtRVFgVHO0ZZFrukTtq8vz BEOLIFAak4Dlw1XzTD3ccIt2 MVkzMCSaJJV7JO1eAD06KZ9p pXTYeBQoqtVYo4BgWSEnbBHz OfUbECHMUJM2IoObWAfyPTW2 [facility] report microscopic observation Narrative Other stain e4brxIHmJEIhmXGnQpBdDLOl NHVao0oxZSSxzMToXvOsPaPh RrNgUkajhXIrFNZqAnMgt8bq o651wFXlo2otTUAfItY2sDJc ALDchWScO381FWSjGWnml4fn s0PdBAGerCJfy0W0YMEXufog xNe6fGgoY95cf5Q2PsxoO0gy XDYsOMNiS5HaYC7qWQAqSha3 LLB2XLK1YZSeENZvJ9NxOW9e JWVjxCVhBCs3t8dalTdxJDKq JOL3l7nzZGztltLyKY6btw1d aTt5s6wxdbTvNCZuOGExoLJB GACqR3KrlGmwXx5brAw1hQky IsboMFU4Zaw4UF2zwr68rdf6 vNikGXVtqiylHqP5VSoaWFMu jjiqRGs4WMmjPCFrqEV8NQPb uJJfM0VyJSDgXP6efxh8FQU8 XLwbAIPkNfF9GZHriBZcVDYz xSliCIvie062GBJ0KkQvIP4j N4Tmy6A5mI8kzOOsWPMpjZQa GeLpTUIoqe7poMJxQJemd5Kp POB5ekA0iWDsgXJuCOQlMB84 Tnzzj7VjCelaYJH6WEApqyRr i4Djj9tcOiYdxbOdO3qgE2Wv ACDkDAMrMPElNlTnagEco6Iw w8IdtHOzjKb9l1euGMNuYISu wXsas1dwUBO0WERaY6F4bAFe a4tgLCeyPYGeuTL4klZ7MTNa kIMrC8MiqC7jRRXrBK7whuy8 l3txGKJ6HRmpVCKvJnG1tiZ4 MPNliZIzJMUneDtpCJjkk862 WJM1NwVtRIBya8BuH8CgfQsj S30qhDjzA37oIQKvkKqhdO8q kPmroE7bTgToSxPnVDitbGci bGFpblxmMVxmczIwXGxhbmcx WHSaGEbcC3yaDxEcNKVxhZbs TFiqi3KgMSXgJVToSxFjLUun pr9uT49otWMbOVmttCauDIZf j19rbQGxoZNjWr8vkNRlMyxl YXJ9 [facility] Basic Metabolic Panelon 04-0 Anion gap molar conc 16 mmol/L 10 - 20 mmol/L [facility] Calcium mass conc 9.3 mg/dL 8.4 - 10.2 mg/dL [facility] Chloride molar conc 98 mmol/L 98 - 108 mmol/L [facility] Creatinine mass conc 0.26 mg/dL Low 0.4 - 1 .1 mg/dL [facility] GFR/1.73 sq M predicted among non-blacks MDRD vol rate/area (S/P/Bld) The eGFR should be used for monitoring renal function only and not for medication dosing. [facility] GFR/1.73 sq M.predicted CKD-EPI vol rate/area (S/P/Bld) 164 >=60 mL/min/1.73 m2 [facility] Glucose mass conc 145 mg/dL High 65 - 99 mg/dL [facility] HCO3 molar conc 32 mmol/L 21 - 32 mmol/L [facility] Interpretation and review of laboratory results Abnormal [facility] Potassium molar conc 4.4 mmol/L 3.5 - 5 .1 mmol/L [facility] Sodium molar conc 142 mmol/L 135 - 145 mmol/L [facility] Urea nitrogen mass conc 11 mg/dL 8 - 25 mg/dL [facility] Urea nitrogen/Creatinine mass ratio 42.3 mg/mg High [facility] CBC WITH AUTO DIFFERENTIALon 12-04-2018 Basophils #/vol (Bld) 0.07 10*3/uL [facility] Basophils/100 WBC (Bld) 0.8 % [facility] Eosinophils #/vol (Bld) 0.15 10*3/uL [facility] Eosinophils/100 WBC (Bld) 1.8 % [facility] Erythrocyte distribution width Entitic volume (RBC) 14.2 % 11.6 - 14.8 % [facility] Hematocrit Volume Fraction (Bld) 34.6 % Low 36 - 46 % [facility] Hemoglobin mass conc (Bld) 10.6 g/dL Low 12 - 16 g/dL [facility] Immature granulocytes #/vol (Bld) 0.06 10*3/uL [facility] Immature granulocytes/100 WBC (Bld) 0.70 % [facility] Comment on above: The IG parameter is the percentage of metamyelocytes, myelocytes, and promyelocytes. Interpretation and review of laboratory results Abnormal [facility] Lymphocytes #/vol (Bld) 2.05 10*3/uL [facility] Lymphocytes/100 WBC (Bld) 24.8 % [facility] MCH Entitic mass (RBC) 29.0 pg 26 - 34 pg [facility] MCHC mass conc (RBC) 30.6 g/dL Low 31 - 37 g/dL [facility] MCV Entitic volume (RBC) 94.8 fL 80 - 100 fL [facility] Monocytes #/vol (Bld) 0.77 10*3/uL [facility] Monocytes/100 WBC (Bld) 9.3 % [facility] Neutrophils #/vol (Bld) 5.17 10*3/uL [facility] Neutrophils/100 WBC (Bld) 62.6 % [facility] Nucleated RBC #/vol (Bld) 0.00 10*3/uL [facility] Nucleated RBC/100 WBC Ratio (Bld) 0.0 % [facility] Platelet mean volume Entitic volume (Bld) 11.9 fL 9 - 15.5 fL [facility] Platelets #/vol (Bld) 187 10*3/uL [facility] RBC #/vol (Bld) 3.65 10*6/uL [facility] WBC #/vol (Bld) 8.27 10*3/uL [facility] Basic Metabolic Panelon Anion gap molar conc 12 mmol/L 10 - 20 mmol/L [facility] Calcium mass conc 9.1 mg/dL 8.4 - 10.2 mg/dL [facility] Chloride molar conc 103 mmol/L 98 - 108 mmol/L [facility] Creatinine mass conc 0.25 mg/dL Low 0.4 - 1 .1 mg/dL [facility] GFR/1.73 sq M predicted among non-blacks MDRD vol rate/area (S/P/Bld) The eGFR should be used for monitoring renal function only and not for medication dosing. [facility] GFR/1.73 sq M.predicted CKD-EPI vol rate/area (S/P/Bld) 166 >=60 mL/min/1.73 m2 [facility] Glucose mass conc 137 mg/dL High 65 - 99 mg/dL [facility] HCO3 molar conc 35 mmol/L High 21 - 32 mmol/L [facility] Interpretation and review of laboratory results Abnormal [facility] Potassium molar conc 4.0 mmol/L 3.5 - 5 .1 mmol/L [facility] Sodium molar conc 146 mmol/L High 135 - 145 mmol/L [facility] Urea nitrogen mass conc 11 mg/dL 8 - 25 mg/dL [facility] Urea nitrogen/Creatinine mass ratio 44.0 mg/mg High [facility] Blood Culture Aerobic/Anaero bicon 12-03-2018 Bacteria identified Cx Nom (Bld) [facility] Cx Nom (Bld) No [facility] CBC WITH AUTO DIFFERENTIALon 12-03-2018 Basophils #/vol (Bld) 0.07 10*3/uL [facility] Basophils/100 WBC (Bld) 0.8 % [facility] Eosinophils #/vol (Bld) 0.14 10*3/uL [facility] Eosinophils/100 WBC (Bld) 1.7 % [facility] Erythrocyte distribution width Entitic volume (RBC) 14.1 % 11.6 - 14.8 % [facility] Hematocrit Volume Fraction (Bld) 35.9 % Low 36 - 46 % [facility] Hemoglobin mass conc (Bld) 10.4 g/dL Low 12 - 16 g/dL [facility] Immature granulocytes #/vol (Bld) 0.06 10*3/uL [facility] Immature granulocytes/100 WBC (Bld) 0.70 % [facility] Comment on above: The IG parameter is the percentage of metamyelocytes, myelocytes, and promyelocytes. Interpretation and review of laboratory results Abnormal [facility] Lymphocytes #/vol (Bld) 2.03 10*3/uL [facility] Lymphocytes/100 WBC (Bld) 24.5 % [facility] MCH Entitic mass (RBC) 29.1 pg 26 - 34 pg [facility] MCHC mass conc (RBC) 29.0 g/dL Low 31 - 37 g/dL [facility] MCV Entitic volume (RBC) 100.6 fL High 80 - 100 fL [facility] Monocytes #/vol (Bld) 0.76 10*3/uL [facility] Monocytes/100 WBC (Bld) 9.2 % [facility] Neutrophils #/vol (Bld) 5.21 10*3/uL [facility] Neutrophils/100 WBC (Bld) 63.1 % [facility] Nucleated RBC #/vol (Bld) 0.00 10*3/uL [facility] Nucleated RBC/100 WBC Ratio (Bld) 0.0 % [facility] Platelet mean volume Entitic volume (Bld) 11.8 fL 9 - 15.5 fL [facility] Platelets #/vol (Bld) 190 10*3/uL [facility] RBC #/vol (Bld) 3.57 10*6/uL [facility] WBC #/vol (Bld) 8.27 10*3/uL [facility] ABORH VERIFICATIONon 019 ABO and Rh group Nom (Bld) A Positive [facility] ABO and Rh group Nom (Bld) ABO/Rh Verification [facility] Patient's ABO/Rh is verified. [facility] Basic Metabolic Panelon Anion gap molar conc 16 mmol/L 10 - 20 mmol/L [facility] Calcium mass conc 9.3 mg/dL 8.4 - 10.2 mg/dL [facility] Chloride molar conc 109 mmol/L High 98 - 108 mmol/L [facility] Creatinine mass conc 0.29 mg/dL Low 0.4 - 1 .1 mg/dL [facility] GFR/1.73 sq M predicted among non-blacks MDRD vol rate/area (S/P/Bld) The eGFR should be used for monitoring renal function only and not for medication dosing. [facility] GFR/1.73 sq M.predicted CKD-EPI vol rate/area (S/P/Bld) 158 >=60 mL/min/1.73 m2 [facility] Glucose mass conc 96 mg/dL 65 - 99 mg/dL [facility] HCO3 molar conc 32 mmol/L 21 - 32 mmol/L [facility] Interpretation and review of laboratory results Abnormal [facility] Potassium molar conc 4.3 mmol/L 3.5 - 5 .1 mmol/L [facility] Sodium molar conc 153 mmol/L High 135 - 145 mmol/L [facility] Urea nitrogen mass conc 10 mg/dL 8 - 25 mg/dL [facility] Urea nitrogen/Creatinine mass ratio 34.5 mg/mg High [facility] CBC WITH AUTO DIFFERENTIALon 12-02-2018 Basophils #/vol (Bld) 0.06 10*3/uL [facility] Basophils/100 WBC (Bld) 0.9 % [facility] Eosinophils #/vol (Bld) 0.14 10*3/uL [facility] Eosinophils/100 WBC (Bld) 2.1 % [facility] Erythrocyte distribution width Entitic volume (RBC) 14.3 % 11.6 - 14.8 % [facility] Hematocrit Volume Fraction (Bld) 36.0 % 36 - 46 % [facility] Hemoglobin mass conc (Bld) 11.2 g/dL Low 12 - 16 g/dL [facility] Immature granulocytes #/vol (Bld) 0.02 10*3/uL [facility] Immature granulocytes/100 WBC (Bld) 0.30 % [facility] Comment on above: The IG parameter is the percentage of metamyelocytes, myelocytes, and promyelocytes. Interpretation and review of laboratory results Abnormal [facility] Lymphocytes #/vol (Bld) 1.56 10*3/uL [facility] Lymphocytes/100 WBC (Bld) 22.9 % [facility] MCH Entitic mass (RBC) 29.7 pg 26 - 34 pg [facility] MCHC mass conc (RBC) 31.1 g/dL 31 - 37 g/dL [facility] MCV Entitic volume (RBC) 95.5 fL 80 - 100 fL [facility] Monocytes #/vol (Bld) 0.50 10*3/uL [facility] Monocytes/100 WBC (Bld) 7.3 % [facility] Neutrophils #/vol (Bld) 4.54 10*3/uL [facility] Neutrophils/100 WBC (Bld) 66.5 % [facility] Nucleated RBC #/vol (Bld) 0.00 10*3/uL [facility] Nucleated RBC/100 WBC Ratio (Bld) 0.0 % [facility] Platelet mean volume Entitic volume (Bld) 12.1 fL 9 - 15.5 fL [facility] Platelets #/vol (Bld) 202 10*3/uL [facility] RBC #/vol (Bld) 3.77 10*6/uL Low [facility] lth WBC #/vol (Bld) 6.82 10*3/uL [facility] ECG 12-LEADon 12-02-2018 Atrial Rate 85 BPM [facility] P [place] 5 degrees [facility] P-R Interval 170 ms [facility] Q-T Interval 368 ms [facility] QRS Duration 82 ms [facility] QTC Calculation (Bezet) 437 ms [facility] R [place] 78 degrees [facility] T [place] 22 degrees [facility] Ventricular Rate 85 BPM [facility] th Normal sinus rhythm Normal ECG Confirmed by SURAJ ANDINO, LETICIA ([id number]) on 12/02/2018 7:44:46 AM [facility] POC , Urineon 12-02 HCG ( test) Ql (U) Negative Negative [facility] HCG.beta subunit ( test) Ql (U) Dilute urine specimens, as indicated by a low specific gravity (<1.010) may not contain guest experience representative levels of hCG. If is still suspected, a serum test or repeat urine test using a first morning urine specimen should be considered. [facility] Interpretation and review of laboratory results Normal [facility] Type and Screenon 12-02-2018 ABO and Rh group Nom (Bld) A Positive [facility] Blood group antibody screen Ql Negative [facility] Specimen Expires 12/05/2018 23:59 EST [facility] Basic Metabolic Panelon Anion gap molar conc 12 mmol/L 10 - 20 mmol/L [facility] Calcium mass conc 9.1 mg/dL 8.4 - 10.2 mg/dL [facility] Chloride molar conc 103 mmol/L 98 - 108 mmol/L [facility] Creatinine mass conc 0.40 mg/dL 0.4 - 1 .1 mg/dL [facility] GFR/1.73 sq M predicted among non-blacks MDRD vol rate/area (S/P/Bld) The eGFR should be used for monitoring renal function only and not for medication dosing. [facility] GFR/1.73 sq M.predicted CKD-EPI vol rate/area (S/P/Bld) 142 >=60 mL/min/1.73 m2 [facility] Glucose mass conc 134 mg/dL High 65 - 99 mg/dL [facility] HCO3 molar conc 33 mmol/L High 21 - 32 mmol/L [facility] Interpretation and review of laboratory results Abnormal [facility] Potassium molar conc 3.5 mmol/L 3.5 - 5 .1 mmol/L [facility] Sodium molar conc 144 mmol/L 135 - 145 mmol/L [facility] Urea nitrogen mass conc 16 mg/dL 8 - 25 mg/dL [facility] Urea nitrogen/Creatinine mass ratio 40.0 mg/mg High [facility] CBC WITH AUTO DIFFERENTIALon 12-01-2018 Basophils #/vol (Bld) 0.06 10*3/uL [facility] Basophils/100 WBC (Bld) 0.7 % [facility] Eosinophils #/vol (Bld) 0.15 10*3/uL [facility] Eosinophils/100 WBC (Bld) 1.7 % [facility] Erythrocyte distribution width Entitic volume (RBC) 13.7 % 11.6 - 14.8 % [facility] Hematocrit Volume Fraction (Bld) 32.6 % Low 36 - 46 % [facility] Hemoglobin mass conc (Bld) 9.8 g/dL Low 12 - 16 g/dL [facility] Immature granulocytes #/vol (Bld) 0.04 10*3/uL [facility] Immature granulocytes/100 WBC (Bld) 0.40 % [facility] Comment on above: The IG parameter is the percentage of metamyelocytes, myelocytes, and promyelocytes. Interpretation and review of laboratory results Abnormal [facility] Lymphocytes #/vol (Bld) 1.55 10*3/uL [facility] Lymphocytes/100 WBC (Bld) 17.3 % [facility] MCH Entitic mass (RBC) 29.0 pg 26 - 34 pg [facility] MCHC mass conc (RBC) 30.1 g/dL Low 31 - 37 g/dL [facility] MCV Entitic volume (RBC) 96.4 fL 80 - 100 fL [facility] Monocytes #/vol (Bld) 0.54 10*3/uL [facility] Monocytes/100 WBC (Bld) 6.0 % [facility] Neutrophils #/vol (Bld) 6.62 10*3/uL [facility] Neutrophils/100 WBC (Bld) 73.9 % [facility] Nucleated RBC #/vol (Bld) 0.00 10*3/uL [facility] Nucleated RBC/100 WBC Ratio (Bld) 0.0 % [facility] Platelet mean volume Entitic volume (Bld) 11.9 fL 9 - 15.5 fL [facility] Platelets #/vol (Bld) 182 10*3/uL [facility] RBC #/vol (Bld) 3.38 10*6/uL [facility]Bld) 8.96 10*3/uL [facility] POC Glucoseon 12-01-2018 Glucose mass conc 129 mg/dL High 65 - 99 mg/dL [facility] Interpretation and review of laboratory results Abnormal [facility] Glucose mass conc 137 mg/dL High 65 - 99 mg/dL [facility] Interpretation and review of laboratory results Abnormal [facility] Urine Aerobic Cultureon Bacteria identified Aer cx Nom (Unsp spec) KLEBSIELLA PNEUMONIAE Abnormal [facility] Interpretation and review of laboratory results Abnormal [facility] Basic Metabolic Panelon Anion gap molar conc 12 mmol/L 10 - 20 mmol/L [facility] Calcium mass conc 9.0 mg/dL 8.4 - 10.2 mg/dL [facility] Chloride molar conc 104 mmol/L 98 - 108 mmol/L [facility] Creatinine mass conc 0.31 mg/dL Low 0.4 - 1 .1 mg/dL [facility] GFR/1.73 sq M predicted among non-blacks MDRD vol rate/area (S/P/Bld) The eGFR should be used for monitoring renal function only and not for medication dosing. [facility] GFR/1.73 sq M.predicted CKD-EPI vol rate/area (S/P/Bld) 155 >=60 mL/min/1.73 m2 [facility] Glucose mass conc 114 mg/dL High 65 - 99 mg/dL [facility] HCO3 molar conc 34 mmol/L High 21 - 32 mmol/L [facility] Interpretation and review of laboratory results Abnormal [facility] Potassium molar conc 3.5 mmol/L 3.5 - 5 .1 mmol/L [facility] Sodium molar conc 146 mmol/L High 135 - 145 mmol/L [facility] Urea nitrogen mass conc 13 mg/dL 8 - 25 mg/dL [facility] Urea nitrogen/Creatinine mass ratio 41.9 mg/mg High [facility] Anion gap molar conc 13 mmol/L 10 - 20 mmol/L [facility] Calcium mass conc 9.3 mg/dL 8.4 - 10.2 mg/dL [facility] Chloride molar conc 106 mmol/L 98 - 108 mmol/L [facility] Creatinine mass conc mg/dL Low 0.4 - 1 .1 mg/dL [facility] GFR/1.73 sq M predicted among non-blacks MDRD vol rate/area (S/P/Bld) The eGFR should be used for monitoring renal function only and not for medication dosing. [facility] GFR/1.73 sq M.predicted CKD-EPI vol rate/area (S/P/Bld) >=60 mL/min/1.73 m2 [facility] Comment on above: Unable to calculate; a result component is outside measurable limits. Glucose mass conc 112 mg/dL High 65 - 99 mg/dL [facility] HCO3 molar conc 36 mmol/L High 21 - 32 mmol/L [facility] Interpretation and review of laboratory results Abnormal [facility] Potassium molar conc 3.6 mmol/L 3.5 - 5 .1 mmol/L [facility] Sodium molar conc 151 mmol/L High 135 - 145 mmol/L [facility] Urea nitrogen mass conc 14 mg/dL 8 - 25 mg/dL [facility] Urea nitrogen/Creatinine mass ratio [facility] Comment on above: Unable to calculate; a result component is outside measurable limits. Anion gap molar conc 10 mmol/L 10 - 20 mmol/L [facility] Calcium mass conc 8.9 mg/dL 8.4 - 10.2 mg/dL [facility] Chloride molar conc 109 mmol/L High 98 - 108 mmol/L [facility] Creatinine mass conc 0.40 mg/dL 0.4 - 1 .1 mg/dL [facility] GFR/1.73 sq M predicted among non-blacks MDRD vol rate/area (S/P/Bld) The eGFR should be used for monitoring renal function only and not for medication dosing. [facility] GFR/1.73 sq M.predicted CKD-EPI vol rate/area (S/P/Bld) 142 >=60 mL/min/1.73 m2 [facility] Glucose mass conc 112 mg/dL High 65 - 99 mg/dL [facility] HCO3 molar conc 36 mmol/L High 21 - 32 mmol/L [facility] Interpretation and review of laboratory results Abnormal [facility] Potassium molar conc 3.8 mmol/L 3.5 - 5 .1 mmol/L [facility] Sodium molar conc 151 mmol/L High 135 - 145 mmol/L [facility] Urea nitrogen mass conc 17 mg/dL 8 - 25 mg/dL [facility] Urea nitrogen/Creatinine mass ratio 42.5 mg/mg High [facility] CBCon 11-30-2018 Erythrocyte distribution width Entitic volume (RBC) 14.3 % 11.6 - 14.8 % [facility] Hematocrit Volume Fraction (Bld) 37.7 % 36 - 46 % [facility] Hemoglobin mass conc (Bld) 11.1 g/dL Low 12 - 16 g/dL [facility] Interpretation and review of laboratory results Abnormal [facility] MCH Entitic mass (RBC) 29.5 pg 26 - 34 pg [facility] MCHC mass conc (RBC) 29.4 g/dL Low 31 - 37 g/dL [facility] MCV Entitic volume (RBC) 100.3 fL High 80 - 100 fL [facility] Nucleated RBC #/vol (Bld) 0.00 10*3/uL [facility] Nucleated RBC/100 WBC Ratio (Bld) 0.0 % [facility] Platelet mean volume Entitic volume (Bld) 12.1 fL 9 - 15.5 fL [facility] Platelets #/vol (Bld) 197 10*3/uL [facility] RBC #/vol (Bld) 3.76 10*6/uL [facility] WBC #/vol (Bld) 10.65 10*3/uL [facility] alth LAMOTRIGINE LEVELon 12-01-19 19 Interpretation and review of laboratory results Normal [facility] POC Glucoseon 11-30-2018 Glucose mass conc 113 mg/dL High 65 - 99 mg/dL [facility] Interpretation and review of laboratory results Abnormal [facility] Glucose mass conc 102 mg/dL High 65 - 99 mg/dL [facility] Interpretation and review of laboratory results Abnormal [facility] Glucose mass conc 107 mg/dL High 65 - 99 mg/dL [facility] Interpretation and review of laboratory results Abnormal [facility] Vancomycin Level, Troughon 0 11-30-2018 Interpretation and review of laboratory results Normal [facility] Vancomycin trough mass conc 11.0 ug/mL [facility] B12/Folateon 11-29-2018 Cobalamin (Vitamin B12) mass conc 929 pg/mL 232 - 1245 pg/mL [facility] Folate mass conc ng/mL High 3.1 - 17.5 ng/mL [facility] Comment on above: Deficient <2.2 Borderline 2.2 - 3.0 Excessive >17.5 Interpretation and review of laboratory results Abnormal [facility] Basic Metabolic Panelon Anion gap molar conc 10 mmol/L 10 - 20 mmol/L [facility] Creatinine mass conc 0.38 mg/dL Low 0.4 - 1 .1 mg/dL [facility] GFR/1.73 sq M.predicted CKD-EPI vol rate/area (S/P/Bld) 145 >=60 mL/min/1.73 m2 [facility] Glucose mass conc 94 mg/dL 65 - 99 mg/dL [facility] HCO3 molar conc 37 mmol/L High 21 - 32 mmol/L [facility] Potassium molar conc 3.8 mmol/L 3.5 - 5 .1 mmol/L [facility] Sodium molar conc 153 mmol/L High 135 - 145 mmol/L [facility] Urea nitrogen mass conc 18 mg/dL 8 - 25 mg/dL [facility] Urea nitrogen/Creatinine mass ratio 47.4 mg/mg High [facility] Anion gap molar conc 15 mmol/L 10 - 20 mmol/L [facility] Creatinine mass conc 0.36 mg/dL Low 0.4 - 1 .1 mg/dL [facility] GFR/1.73 sq M.predicted CKD-EPI vol rate/area (S/P/Bld) 147 >=60 mL/min/1.73 m2 [facility] Glucose mass conc 102 mg/dL High 65 - 99 mg/dL [facility] HCO3 molar conc 35 mmol/L High 21 - 32 mmol/L [facility] Potassium molar conc 4.5 mmol/L 3.5 - 5 .1 mmol/L [facility] Sodium molar conc 155 mmol/L High 135 - 145 mmol/L [facility] Urea nitrogen/Creatinine mass ratio 44.4 mg/mg High [facility] Anion gap molar conc 14 mmol/L 10 - 20 mmol/L [facility] Calcium mass conc 8.8 mg/dL 8.4 - 10.2 mg/dL [facility] Chloride molar conc 110 mmol/L High 98 - 108 mmol/L [facility] Creatinine mass conc 0.41 mg/dL 0.4 - 1 .1 mg/dL [facility] GFR/1.73 sq M predicted among non-blacks MDRD vol rate/area (S/P/Bld) The eGFR should be used for monitoring renal function only and not for medication dosing. [facility] GFR/1.73 sq M.predicted CKD-EPI vol rate/area (S/P/Bld) 141 >=60 mL/min/1.73 m2 [facility] Glucose mass conc 111 mg/dL High 65 - 99 mg/dL [facility] HCO3 molar conc 37 mmol/L High 21 - 32 mmol/L [facility] Interpretation and review of laboratory results Abnormal [facility] Potassium molar conc 4.1 mmol/L 3.5 - 5 .1 mmol/L [facility] Sodium molar conc 157 mmol/L High 135 - 145 mmol/L [facility] Urea nitrogen/Creatinine mass ratio 39.0 mg/mg High [facility] CBCon 11-29-2018 Erythrocyte distribution width Entitic volume (RBC) 14.3 % 11.6 - 14.8 % [facility] Hematocrit Volume Fraction (Bld) 40.4 % 36 - 46 % [facility] Hemoglobin mass conc (Bld) 11.8 g/dL Low 12 - 16 g/dL [facility] Interpretation and review of laboratory results Abnormal [facility] MCH Entitic mass (RBC) 29.7 pg 26 - 34 pg [facility] MCHC mass conc (RBC) 29.2 g/dL Low 31 - 37 g/dL [facility] MCV Entitic volume (RBC) 101.8 fL High 80 - 100 fL [facility] Nucleated RBC #/vol (Bld) 0.00 10*3/uL [facility] Nucleated RBC/100 WBC Ratio (Bld) 0.0 % [facility] Platelet mean volume Entitic volume (Bld) 12.0 fL 9 - 15.5 fL [facility] Platelets #/vol (Bld) 222 10*3/uL [facility] RBC #/vol (Bld) 3.97 10*6/uL [facility] #/[facility] (Bld) 10.98 10*3/uL [facility] alth CRP, Inflammationon 11-30-19 19 CRP mass conc 5.4 mg/L 0 - 10 mg/L [facility] Interpretation and review of laboratory results Normal [facility] CT CHEST ABDOMEN PELVIS WITH IV CONTRAST ONLYon 11-29-2018 No evidence for acut e abnormality. Extensive thoracolumbar and sacral fusion is seen. Prior cholecystectomy. /[facility] Workstation ID: [id number] [facility] EXAMINATION: CT CHES T ABDOMEN PELVIS WITH IV CONTRAST ONLY HISTORY: ORDERING SYSTEM PROVIDED HISTORY: Sepsis, TECHNOLOGIST PROVIDED HISTORY: Reason for exam: Sepsis Illness/Other Encounter Type: Initial Additional signs and symptoms: Sepsis ORDERING SYSTEM PROVIDED DIAGNOSIS CODES: A41.9 Sepsis, due to unspecified organism (HCC) E87.0 Hypernatremia COMPARISON: 11/21/2016. TECHNIQUE: CT examination of the chest, abdomen, and pelvis following the administration of intravenous contrast. Coronal and sagittal reformations were performed. Dose reduction techniques were achieved by using automated exposure control and/or adjustment of mA and/or kV according to patient size and/or use of iterative reconstruction technique. CONTRAST: Iopamidol 76% intravenous solution - 75 mL. 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 No obvious focal consolidation is seen. The heart size is normal. There is no evidence for pericardial effusion. No significant pleural effusion or pneumothorax is seen. No significant enlarged hilar, mediastinal or axillary adenopathy is seen. Surgical clips are seen in the lower neck which may be related to prior thyroid/parathyroid surgery. Please correlate clinically. However, normal appearing thyroid tissue is likely seen. The tracheobronchial structures appear unremarkable. ABDOMEN/PELVIS: Patient is post cholecystectomy. Surgical clips are seen in gallbladder fossa. The liver, spleen, pancreas and adrenal glands appear unremarkable. Bilateral kidneys demonstrate normal size, morphology and contrast-enhancement. There is no evidence for hydronephrosis bilaterally. The stomach and duodenum appear unremarkable. Nonobstructive bowel pattern is seen. Large volume of stool is seen throughout the colon. Normal appearing appendix is visualized. No significant bowel wall thickening is seen. The urinary bladder is unremarkable. No significant free fluid or abnormal fluid collections are seen in the abdomen and pelvis. No significant enlarged abdominal or pelvic adenopathy is seen. The vascular structures are normal in caliber and contrast-enhancement. The abdominal wall and visualized soft tissues appear grossly unremarkable. [facility] Addendum by Anahi Pedroza MD on 11/29/2018 2:37 PM ADDENDUM: Partially visualized skin defect is seen in the inferior posteromedial right gluteal region with heterogeneous area of soft tissue thickening seen in the underlying subcutaneous tissues containing gas and fluid density, measuring at least 5 cm, suggestive of a decubitus ulcer with abscess formation. Soft tissue thickening is seen extending to the right ischium where cortical erosive changes are seen, suggestive of osteomyelitis of the underlying right ischium. I discussed the above findings with Dr. Onelia Gutierrez on 11/29/2018 at 2:25 p.m.. Workstation ID: [id number] [employer] - 11/29/2018 12:06 AM EDT EXAMINATION: CT CHEST ABDOMEN PELVIS WITH IV CONTRAST ONLY HISTORY: ORDERING SYSTEM PROVIDED HISTORY: Sepsis, TECHNOLOGIST PROVIDED HISTORY: Reason for exam: Sepsis Illness/Other Encounter Type: Initial Additional signs and symptoms: Sepsis ORDERING SYSTEM PROVIDED DIAGNOSIS CODES: A41.9 Sepsis, due to unspecified organism (HCC) E87.0 Hypernatremia COMPARISON: 11/21/2016. TECHNIQUE: CT examination of the chest, abdomen, and pelvis following the administration of intravenous contrast. Coronal and sagittal reformations were performed. Dose reduction techniques were achieved by using automated exposure control and/or adjustment of mA and/or kV according to patient size and/or use of iterative reconstruction technique. CONTRAST: Iopamidol 76% intravenous solution - 75 mL. 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 No obvious focal consolidation is seen. The heart size is normal. There is no evidence for pericardial effusion. No significant pleural effusion or pneumothorax is seen. No significant enlarged hilar, mediastinal or axillary adenopathy is seen. Surgical clips are seen in the lower neck which may be related to prior thyroid/parathyroid surgery. Please correlate clinically. However, normal appearing thyroid tissue is likely seen. The tracheobronchial structures appear unremarkable. ABDOMEN/PELVIS: Patient is post cholecystectomy. Surgical clips are seen in gallbladder fossa. The liver, spleen, pancreas and adrenal glands appear unremarkable. Bilateral kidneys demonstrate normal size, morphology and contrast-enhancement. There is no evidence for hydronephrosis bilaterally. The stomach and duodenum appear unremarkable. Nonobstructive bowel pattern is seen. Large volume of stool is seen throughout the colon. Normal appearing appendix is visualized. No significant bowel wall thickening is seen. The urinary bladder is unremarkable. No significant free fluid or abnormal fluid collections are seen in the abdomen and pelvis. No significant enlarged abdominal or pelvic adenopathy is seen. The vascular structures are normal in caliber and contrast-enhancement. The abdominal wall and visualized soft tissues appear grossly unremarkable. IMPRESSION: No evidence for acute abnormality. Extensive thoracolumbar and sacral fusion is seen. Prior cholecystectomy. /[facility] Workstation ID: [id number] [facility] Metabolic Panelon 11-29-2018 Calcium mass conc 8.8 mg/dL 8.4 - 10.2 mg/dL [facility] Chloride molar conc 110 mmol/L High 98 - 108 mmol/L [facility] GFR/1.73 sq M predicted among non-blacks MDRD vol rate/area (S/P/Bld) The eGFR should be used for monitoring renal function only and not for medication dosing. [facility] Urea nitrogen mass conc 16 mg/dL 8 - 25 mg/dL [facility] Otheron 11-29-2018 Interpretation and review of laboratory results Abnormal [facility] Extra Tube Hold for add-ons. [facility] Comment on above: Auto resulted. POC Glucoseon 11-29-2018 Glucose mass conc 88 mg/dL 65 - 99 mg/dL [facility] Interpretation and review of laboratory results Normal [facility] Reflex Lactic Acid, Plasmaon 11-29-2018 Interpretation and review of laboratory results Normal [facility] Lactate molar conc 1.3 mmol/L 0.6 - 2 mmol/L [facility] Sedimentation Rateon 019 ESR Velocity (Bld) 38 mm/h High [facility] Interpretation and review of laboratory results Abnormal [facility] BMPon 11-28-2018 Anion gap molar conc 17 mmol/L 10 - 20 mmol/L [facility] Calcium mass conc 9.5 mg/dL 8.4 - 10.2 mg/dL [facility] Chloride molar conc 104 mmol/L 98 - 108 mmol/L [facility] Creatinine mass conc 0.37 mg/dL Low 0.4 - 1 .1 mg/dL [facility] GFR/1.73 sq M predicted among non-blacks MDRD vol rate/area (S/P/Bld) The eGFR should be used for monitoring renal function only and not for medication dosing. [facility] GFR/1.73 sq M.predicted CKD-EPI vol rate/area (S/P/Bld) 146 >=60 mL/min/1.73 m2 [facility] Glucose mass conc 178 mg/dL High 65 - 99 mg/dL [facility] HCO3 molar conc 38 mmol/L High 21 - 32 mmol/L [facility] Interpretation and review of laboratory results Abnormal [facility] Potassium molar conc 3.6 mmol/L 3.5 - 5 .1 mmol/L [facility] Sodium molar conc 155 mmol/L High 135 - 145 mmol/L [facility] Urea nitrogen mass conc 16 mg/dL 8 - 25 mg/dL [facility] Urea nitrogen/Creatinine mass ratio 43.2 mg/mg High [facility] Blood Gason 11-28-2018 HCO3 molar conc (Bld) 43.6 mmol/L High 24 - 2 8 mmol/L [facility] CBC WITH AUTO DIFFERENTIALon 11-28-2018 Basophils #/vol (Bld) 0.11 10*3/uL [facility] Basophils/100 WBC (Bld) 1.2 % [facility] Eosinophils #/vol (Bld) 0.06 10*3/uL [facility] Eosinophils/100 WBC (Bld) 0.6 % [facility] Erythrocyte distribution width Entitic volume (RBC) 13.9 % 11.6 - 14.8 % [facility] Hematocrit Volume Fraction (Bld) 43.5 % 36 - 46 % [facility] Hemoglobin mass conc (Bld) 12.9 g/dL 12 - 16 g/dL [facility] Immature granulocytes #/vol (Bld) 0.04 10*3/uL [facility] Immature granulocytes/100 WBC (Bld) 0.40 % [facility] Comment on above: The IG parameter is the percentage of metamyelocytes, myelocytes, and promyelocytes. Lymphocytes #/vol (Bld) 2.17 10*3/uL [facility] Lymphocytes/100 WBC (Bld) 23.0 % [facility] MCH Entitic mass (RBC) 29.1 pg 26 - 34 pg [facility] MCHC mass conc (RBC) 29.7 g/dL Low 31 - 37 g/dL [facility] MCV Entitic volume (RBC) 98.2 fL 80 - 100 fL [facility] Monocytes #/vol (Bld) 0.93 10*3/uL High [facility] Monocytes/100 WBC (Bld) 9.8 % [facility] Neutrophils #/vol (Bld) 6.14 10*3/uL [facility] Neutrophils/100 WBC (Bld) 65.0 % [facility] Nucleated RBC #/vol (Bld) 0.00 10*3/uL [facility] Nucleated RBC/100 WBC Ratio (Bld) 0.0 % [facility] Platelet mean volume Entitic volume (Bld) 11.9 fL 9 - 15.5 fL [facility] Platelets #/vol (Bld) 279 10*3/uL [facility] RBC #/vol (Bld) 4.43 10*6/uL [facility] WBC #/vol (Bld) 9.45 10*3/uL [facility] Hematologyon 11-28-2018 Hemoglobin mass conc (Bld) 13.3 g/dL 12 - 16 g/dL [facility] Hepatic Function Panel (LFT) on 11-28-2018 Albumin mass conc 4.2 g/dL 3.2 - 5.2 g/dL [facility] ALP enzyme act/vol 147 U/L High 40 - 140 U/L [facility] ALT enzyme act/vol 22 U/L 0 - 40 U/L [facility] alth AST enzyme act/vol 20 U/L 0 - 45 U/L [facility] alth Bilirubin mass conc mg/dL 0 - 1.3 mg/dL [facility] Bilirubin.conjugated mass conc mg/dL 0 - 0.4 mg/dL [facility] Interpretation and review of laboratory results Abnormal [facility] Protein mass conc 8.0 g/dL 6 - 8 g/dL [facility] INFLUENZA A,B RAPID MOLECULA Joel 11-28-2018 FLUAV RNA CAMILO+probe Ql (Unsp spec) Not Detected Not Detected [facility] FLUBV RNA CAMILO+probe Ql (Unsp spec) Not Detected Not Detected [facility] Interpretation and review of laboratory results Normal [facility] Test Method: Nucleic Acid Amplification [facility] Lactic Acid, Plasmaon 2018 Lactate molar conc 2.9 mmol/L High 0.6 - 2 mmol/L [facility] Metabolic Panelon 11-28-2018 Chloride molar conc 105 mmol/L 98 - 108 mmol/L [facility] Glucose mass conc 175 mg/dL High 65 - 99 mg/dL [facility] Lactate molar conc 2.9 mmol/L High 0.6 - 2 mmol/L [facility] Potassium molar conc 3.6 mmol/L 3.5 - 5 .1 mmol/L [facility] Sodium molar conc 161 mmol/L Critically high 135 - 1 45 mmol/L [facility] Otheron 11-28-2018 Extra Tube Hold for add-ons. [facility] Comment on above: Auto resulted. Interpretation and review of laboratory results Abnormal [facility] Base excess Calculated molar conc (BldV) 16.2 mmol/L High [facility] Breath rate setting Ventilator synchronized intermittent mandatory 0 [facility] Calcium.ionized mass conc 4.4 mg/dL Low 4.5 - 5.3 mg/dL [facility] Carboxyhemoglobin/Hemo globin.total mass fraction (BldA) 2.6 High [facility] Comment on above: Reference Ranges: [facility] Non-smokers:<1.5% Smokers:1.5-5.0% Heavy Smokers:5.0-9.0% CO2 ppres (BldV) 63.4 mm[Hg] High [facility] Hematocrit Volume Fraction (BldA) 40.8 % 36 - 46 % [facility] Inhaled oxygen concentration 0 % [facility] Interpretation and review of laboratory results Abnormal [facility] Methemoglobin/Hemoglob in.total mass fraction (BldA) 0.8 % 0 - 2 % [facility] Oxygen ppres (BldV) 127 mm[Hg] [facility] ealt Oxygen saturation in Venous blood 99.2 % [facility] Oxyhemoglobin/Hemoglob in.total mass fraction (BldA) 95.9 % 94 - 98 % [facility] pH (BldV) 7.45 [pH] High [facility] Tidal volume setting Ventilator 0 [facility] Critical result acte d upon time of test. Test performed at bedside. [facility] URINALYSISon 11-28-2018 Bacteria Auto Ql (U) Many Abnormal None Se en /hpf [facility] Bilirubin Ql (U) Negative Negative [facility] Clarity Refractometry automated Nom (U) Cloudy Abnormal Clear [facility] Color Nom (U) Yellow Colorless, Yellow [facility] Glucose Automated test strip mass conc (U) Negative Negative mg/dL [facility] Hemoglobin Automated test strip Ql (U) Negative Negative [facility] Interpretation and review of laboratory results Abnormal [facility] Ketones mass conc (U) Negative Negati ve mg/dL [facility] Leukocyte esterase Automated test strip Ql (U) Small Abnormal Negative [facility] Nitrite Automated test strip Ql (U) Negative Negative [facility] pH (U) 9.0 [pH] High [facility] Protein mass conc (U) 100 Abnormal Negati ve mg/dL [facility] Specific gravity Relative Density (U) 1.020 [facility] Transitional cells Computer assisted #/area (U) <1 [facility] Urobilinogen mass conc (U) <2.0 <2.0 mg/dL [facility] WBC Auto #/area (Urine sed) 6 High [facility] Microscopic examinat ion is performed on all urinalysis samples and only positive findings are reported. The test for blood on the chemical analytic portion of urinalysis may also be positive due to hemoglobinuria and myoglobinuria and if red blood cells are present they are quantified by microscopic examination. [facility] XR Chest 1 Viewon 11-28-2018 Erythrocyte distribution width Ratio (RBC) Severely limited radiograph due to scoliotic curvature and hardware bridging the entire thoracolumbar spine. Mild diffuse haziness of the lungs may be positional. PD/aw Workstation ID: [id number] [facility] EXAMINATION: XR CHES T PA/AP HISTORY: ORDERING SYSTEM PROVIDED HISTORY: cough sob, requiring more o2, TECHNOLOGIST PROVIDED HISTORY: Reason for exam: cough sob, requiring more o2 Illness/Other Cancer History: Unknown Surgery, RadiationHistory: Yes Encounter Type: Initial Additional signs and symptoms: ORDERING SYSTEM PROVIDED DIAGNOSIS CODES: FINDINGS: Severely limited radiograph due to scoliotic curvature and hardware bridging the entire thoracolumbar spine. Difficult to exclude pathology. Right-sided PICC line is obscured due to Marrufo rods. Mild diffuse haziness in the lungs may be positional. Bones appear demineralized. [facility] Aleksander Orozco In Fu ji Speechq - 11/28/2018 9:22 PM EDT EXAMINATION: XR CHEST PA/AP HISTORY: ORDERING SYSTEM PROVIDED HISTORY: cough sob, requiring more o2, TECHNOLOGIST PROVIDED HISTORY: Reason for exam: cough sob, requiring more o2 Illness/Other Cancer History: Unknown Surgery, RadiationHistory: Yes Encounter Type: Initial Additional signs and symptoms: ORDERING SYSTEM PROVIDED DIAGNOSIS CODES: FINDINGS: Severely limited radiograph due to scoliotic curvature and hardware bridging the entire thoracolumbar spine. Difficult to exclude pathology. Right-sided PICC line is obscured due to Marrufo rods. Mild diffuse haziness in the lungs may be positional. Bones appear demineralized. IMPRESSION: Severely limited radiograph due to scoliotic curvature and hardware bridging the entire thoracolumbar spine. Mild diffuse haziness of the lungs may be positional. PD/aw Workstation ID: [id number] [facility] BMPon 10-07-2018 Anion gap molar conc 11 mmol/L 10 - 20 mmol/L [facility] Calcium mass conc 9.5 mg/dL 8.4 - 10.2 mg/dL [facility] Chloride molar conc 112 mmol/L High 98 - 108 mmol/L [facility] Creatinine mass conc 0.33 mg/dL Low 0.4 - 1 .1 mg/dL [facility] GFR/1.73 sq M predicted among non-blacks MDRD vol rate/area (S/P/Bld) The eGFR should be used for monitoring renal function only and not for medication dosing. [facility] GFR/1.73 sq M.predicted CKD-EPI vol rate/area (S/P/Bld) 151 >=60 mL/min/1.73 m2 [facility] Glucose mass conc 97 mg/dL 65 - 99 mg/dL [facility] HCO3 molar conc 37 mmol/L High 21 - 32 mmol/L [facility] Interpretation and review of laboratory results Abnormal [facility] Potassium molar conc 3.4 mmol/L Low 3.5 - 5 .1 mmol/L [facility] Sodium molar conc 157 mmol/L High 135 - 145 mmol/L [facility] Urea nitrogen mass conc 21 mg/dL 8 - 25 mg/dL [facility] Urea nitrogen/Creatinine mass ratio 63.6 mg/mg High [facility] CBC WITH AUTO DIFFERENTIALon 10-07-2018 Basophils #/vol (Bld) 0.06 10*3/uL [facility] Basophils/100 WBC (Bld) 0.7 % [facility] Eosinophils #/vol (Bld) 0.15 10*3/uL [facility] Eosinophils/100 WBC (Bld) 1.8 % [facility] Erythrocyte distribution width Entitic volume (RBC) 14.2 % 11.6 - 14.8 % [facility] Hematocrit Volume Fraction (Bld) 41.4 % 36 - 46 % [facility] Hemoglobin mass conc (Bld) 12.0 g/dL 12 - 16 g/dL [facility] Immature granulocytes #/vol (Bld) 0.03 10*3/uL [facility] Immature granulocytes/100 WBC (Bld) 0.40 % [facility] Comment on above: The IG parameter is the percentage of metamyelocytes, myelocytes, and promyelocytes. Interpretation and review of laboratory results Abnormal [facility] Lymphocytes #/vol (Bld) 2.05 10*3/uL [facility] Lymphocytes/100 WBC (Bld) 24.2 % [facility] MCH Entitic mass (RBC) 29.8 pg 26 - 34 pg [facility] MCHC mass conc (RBC) 29.0 g/dL Low 31 - 37 g/dL [facility] MCV Entitic volume (RBC) 102.7 fL High 80 - 100 fL [facility] Monocytes #/vol (Bld) 0.70 10*3/uL [facility] Monocytes/100 WBC (Bld) 8.3 % [facility] Neutrophils #/vol (Bld) 5.47 10*3/uL [facility] Neutrophils/100 WBC (Bld) 64.6 % [facility] Nucleated RBC #/vol (Bld) 0.00 10*3/uL [facility] Nucleated RBC/100 WBC Ratio (Bld) 0.0 % [facility] Platelet mean volume Entitic volume (Bld) 12.6 fL 9 - 15.5 fL [facility] Platelets #/vol (Bld) 168 10*3/uL [facility] RBC #/vol (Bld) 4.03 10*6/uL [facility] lth WBC #/vol (Bld) 8.46 10*3/uL [facility] CT HEAD OR BRAIN WITHOUT CON TRASTon 10-07-2018 Interface, Rad In Fu ji Speechq - 10/07/2018 5:24 PM EST CLINICAL HISTORY: Confusion, lethargy. EXAMINATION: UNENHANCED CT SCAN OF THE BRAIN: 10/07/2018. COMPARISON: Unenhanced CT scan of the brain: 11/21/2016. TECHNIQUE: 3 mm axial images from skull base through vertex without intravenous contrast were obtained. Sagittal, coronal reconstructions were performed. Dose reduction techniques were achieved by using automated exposure control and/or adjustment of mA and/or kV according to patient size and/or use of iterative reconstruction technique. FINDINGS: The visualized intraorbital contents are normal. There is no obvious intra or extraaxial hemorrhage. 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 No acute infarct, hemorrhage, mass, mass effect or midline shift. The ventricles are slightly prominent. The visualized paranasal sinuses, mastoid air cells are normal except for opacification of bilateral sphenoid air cells. The calvarium appears intact. IMPRESSION: 1. No definite acute infarct, hemorrhage or acute intracranial process. 2. 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 URBANO/ac Workstation ID: [id number] [facility] CLINICAL HISTORY: Confusion, lethargy. EXAMINATION: UNENHANCED CT SCAN OF THE BRAIN: 10/07/2018. COMPARISON: Unenhanced CT scan of the brain: 11/21/2016. TECHNIQUE: 3 mm axial images from skull base through vertex without intravenous contrast were obtained. Sagittal, coronal reconstructions were performed. Dose reduction techniques were achieved by using automated exposure control and/or adjustment of mA and/or kV according to patient size and/or use of iterative reconstruction technique. FINDINGS: The visualized intraorbital contents are normal. There is no obvious intra or extraaxial hemorrhage. 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 No acute infarct, hemorrhage, mass, mass effect or midline shift. The ventricles are slightly prominent. The visualized paranasal sinuses, mastoid air cells are normal except for opacification of bilateral sphenoid air cells. The calvarium appears intact. [facility] 1. No definite acute infarct, hemorrhage or acute intracranial process. 2. 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 [facility] Workstation ID: [id number] [facility] Hepatic Function Panel (LFT) on 10-07-2018 Albumin mass conc 3.8 g/dL 3.2 - 5.2 g/dL [facility] ALP enzyme act/vol 130 U/L 40 - 140 U/L [facility] ALT enzyme act/vol 24 U/L 0 - 40 U/L [facility] alth AST enzyme act/vol 23 U/L 0 - 45 U/L [facility] alth Bilirubin mass conc mg/dL 0 - 1.3 mg/dL [facility] Bilirubin.conjugated mass conc mg/dL 0 - 0.4 mg/dL [facility] Protein mass conc 7.1 g/dL 6 - 8 g/dL [facility] Lactic Acid, Plasmaon 2018 Interpretation and review of laboratory results Normal [facility] Lactate molar conc 0.8 mmol/L 0.6 - 2 mmol/L [facility] Lipaseon 10-07-2018 Lipase enzyme act/vol 20 U/L 15 - 65 U/L [facility] Otheron 10-07-2018 Extra Tube Hold for add-ons. [facility] Comment on above: Auto resulted. Interpretation and review of laboratory results Normal [facility] URINALYSISon 10-07-2018 Bacteria Auto Ql (U) Rare Abnormal None Se en /hpf [facility] Bilirubin Ql (U) Negative Negative [facility] th Clarity Refractometry automated Nom (U) Cloudy Abnormal Clear [facility] Color Nom (U) Yellow Colorless, Yellow [facility] Crystals.amorphous Computer assisted #/area (U) Few Abnormal None Seen, Rare /hpf [facility] Glucose Automated test strip mass conc (U) Negative Negative mg/dL [facility] Hemoglobin Automated test strip Ql (U) Negative Negative [facility] Interpretation and review of laboratory results Abnormal [facility] Ketones mass conc (U) Negative Negati ve mg/dL [facility] Leukocyte esterase Automated test strip Ql (U) Negative Negative [facility] Mucus Auto #/area (Urine sed) Rare None Seen, Rare /lpf [facility] Nitrite Automated test strip Ql (U) Negative Negative [facility] pH (U) 9.0 [pH] High [facility] Protein mass conc (U) 100 Abnormal Negati ve mg/dL [facility] Specific gravity Relative Density (U) 1.018 [facility] Urobilinogen mass conc (U) <2.0 <2.0 mg/dL [facility] WBC Auto #/area (Urine sed) 7 High [facility] Microscopic examinat ion is performed on all urinalysis samples and only positive findings are reported. The test for blood on the chemical analytic portion of urinalysis may also be positive due to hemoglobinuria and myoglobinuria and if red blood cells are present they are quantified by microscopic examination. [facility] XR ABDOMEN 1 VIEWon 10-07-19 EXAMINATION: XR ABDO MEN /KUB/FLAT PLATE/1 VIEW HISTORY: ORDERING SYSTEM PROVIDED HISTORY: pain somewhere, unable to communicate well, TECHNOLOGIST PROVIDED HISTORY: Reason for exam: pain somewhere, unable to communicate well Illness/Other Cancer History: Unknown Surgery, RadiationHistory: Yes Encounter Type: Initial Additional signs and symptoms: ORDERING SYSTEM PROVIDED DIAGNOSIS CODES: COMPARISON: CT dissection 11/21/2016. FINDINGS: There is a nonspecific bowel gas pattern. A spinal stimulating device is seen extending across the right side of the abdomen and to the lumbar and lower thoracic spinal canal. There are Marrufo rods is seen in the lumbar spine through the SI joints. Severe scoliotic deformity is noted in the spine. There is a PEG tube in the region of the stomach. [facility] Nonspecific bowel ga s pattern. SAY/ads Workstation ID: [id number] [facility] Interface, Rad In Cristi nguyễn Speechq - 10/07/2018 6:33 PM EST EXAMINATION: XR ABDOMEN /KUB/FLAT PLATE/1 VIEW HISTORY: ORDERING SYSTEM PROVIDED HISTORY: pain somewhere, unable to communicate well, TECHNOLOGIST PROVIDED HISTORY: Reason for exam: pain somewhere, unable to communicate well Illness/Other Cancer History: Unknown Surgery, RadiationHistory: Yes Encounter Type: Initial Additional signs and symptoms: ORDERING SYSTEM PROVIDED DIAGNOSIS CODES: COMPARISON: CT dissection 11/21/2016. FINDINGS: There is a nonspecific bowel gas pattern. A spinal stimulating device is seen extending across the right side of the abdomen and to the lumbar and lower thoracic spinal canal. There are Marrufo rods is seen in the lumbar spine through the SI joints. Severe scoliotic deformity is noted in the spine. There is a PEG tube in the region of the stomach. IMPRESSION: Nonspecific bowel gas pattern. SAY[employer] Workstation ID: [id number] [facility] XR Chest 1 Viewon 10-07-2018 Interface, Rad In [facility] - 10/07/2018 6:14 PM EST EXAMINATION: CHEST RADIOGRAPH HISTORY: confusion, check picc placement Reason for exam?:confusion, check picc placement Injury/Trauma or Illness?:Illness/Other How long have you had these symptoms (acute/chronic)?:Acute History of cancer?:Unknown Surgeries, chemotherapy, or radiation?:Yes COMPARISON: Chest x-ray 11/21/2016. TECHNIQUE: An AP radiograph was performed of the chest. FINDINGS: The study is again limited due to the patient's severe scoliosis and positioning. The cardiac silhouette appears likely normal in size. There is a right arm PICC with tip obscured by the Marrufo rods in the thoracic spine, but it is most likely within the SVC. Cardiac silhouette is normal in size. Mild hazy density is noted within the lungs, which may be artifactual due to interstitial edema and/or atelectasis. There is no pleural effusion or pneumothorax. Severe scoliotic deformity of the thoracic spine is again noted, with Marrufo rods in place. IMPRESSION: 1. Limited study, as described above. 2. There is a right arm PICC. The tip is obscured by the Marrufo rods, but it is most likely within the SVC. If clinically indicated, oblique views may be considered. 3. Mild hazy densities in the lungs may be artifactual or due to interstitial edema and/or atelectasis. S[employer] Workstation ID: [id number] [facility] 1. Limited study, as described above. 2. There is a right arm PICC. The tip is obscured by the Marrufo rods, but it is most likely within the SVC. If clinically indicated, oblique views may be considered. 3. Mild hazy densities in the lungs may be artifactual or due to interstitial edema and/or atelectasis. SAY/ads Workstation ID: [id number] [facility] EXAMINATION: CHEST RADIOGRAPH HISTORY: confusion, check picc placement Reason for exam?:confusion, check picc placement Injury/Trauma or Illness?:Illness/Other How long have you had these symptoms (acute/chronic)?:Acute History of cancer?:Unknown Surgeries, chemotherapy, or radiation?:Yes COMPARISON: Chest x-ray 11/21/2016. TECHNIQUE: An AP radiograph was performed of the chest. FINDINGS: The study is again limited due to the patient's severe scoliosis and positioning. The cardiac silhouette appears likely normal in size. There is a right arm PICC with tip obscured by the Marrufo rods in the thoracic spine, but it is most likely within the SVC. Cardiac silhouette is normal in size. Mild hazy density is noted within the lungs, which may be artifactual due to interstitial edema and/or atelectasis. There is no pleural effusion or pneumothorax. Severe scoliotic deformity of the thoracic spine is again noted, with Marrufo rods in place. [facility] CNOVon 08-12-2018 CNOV Office Visit (INOPIN) CLAUDINE JOSEPH ([id number]) 1990 [facility] Time Provider Dkpwsuwzua78/14/18 10:00 AM DEBORA HART During your visit today, we recorded the following information about you: Weight Height 40.8 kg 1.346 Cathy Campuzano MD 08/12/2018 9:35 AM Uolhkf1808/12/2018Colette Goode MD[address] [place] [address]Ln: Claudine [id number] Dr. Goode:Thank you for your kind referral of Claudine Joseph. Claudine was seen at [facility] today for a chief complaint of pressure sore in the crease of hergroin.She is here today to ensure that this wound is not in the area of the spinehardware or in communication with it.SOCIAL HISTORY: Now 28 year sof ageREVIEW OF SYSTEMS: No fevers.RADIOGRAPHS: I have reviewed radiographs of the spine, dated110/13/17*, which demonstrate intact hardware.IMPRESSION: 28-year-old female with history of cerebral palsy and posteriorspinal fusion who presents today with a pressure sore in her groin, and concernfor communication with spine hardware. There is no communication with thespinal hardwarePLAN:Return to clinic as neededSincerely,Debora Hart MDThe documentation for this note was completed by Bj Campuzano MD acting asscribe for Debora Hart MD. August 12, 2018 9:11 AM.Debora Hart MD 08/12/2018 9:35 AM SignedI have reviewed the history and physical obtained and documented by theresident and I personally participated in the camejo components. 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 DIAZEPAM 2 MG TABLET Take 1-2 tablets by mouth onc* FLONASE ALLERGY RELIEF NASAL Use in the nose. MOTRIN 100 MG/5 ML ORAL SUSPE* Take 350mg every 6 hours as n* ENSURE ORAL Take by mouth. LAMOTRIGINE 100 MG TABLET TAKE ONE AND ONE-HALF TABLETS B* LANSOPRAZOLE 30 MG CAPSULE,DE* TAKE ONE CAPSULE ONCE DAILY O* LEVETIRACETAM 100 MG/ML ORAL * Take 5 mL by mouth twice jessica* CLARITIN 10 MG TABLET Take 25mg daily MEDROXYPROGESTERONE 150 MG/ML* Inject 1 mL intramuscularly e* QUE-CAMEJO BUTTON KIT 18 Fr X 3.5 cm button Supply * QUE-CAMEJO GASTROSTOMY TUBE Supply to be used as directed* SINGULAIR 10 MG TABLET Take one tablets daily PRILOSEC ORAL Take by mouth. OMEPRAZOLE 2 MG/ML ORAL LIQUI* Take by mouth daily before br* CLONAZEPAM 0.5 MG TABLET Take 1 tablet by mouth daily * Patient not taking: Reported on 08/12/2018 DIAZEPAM 12.5 MG-15 MG-17.5 M* 12.5 mg by RECTAL route as ne* Patient not taking: Reported on 08/12/2018 LORAZEPAM 0.5 MG TABLET Take 1 tablet by mouth once d* Patient not taking: Reported on 08/12/2018 TIZANIDINE 2 MG TABLET Take 1 tablet by mouth every * Patient not taking: Reported on 08/12/2018Problem List As Of Date 08/12/2018 Noted Resolved Other Specified Infantile Cerebral Palsy [G80.8]INVALID FOR* ESOPHAGITIS REFLUX [K21.0] INVALID FOR* MALNUTRITION MILD DEGREE [E44.1] INVALID FOR* CONSTIPATION NOS [K59.00] INVALID FOR* Outlet dysfunction constipation [K59.02] INVALID FOR* Allergic Rhinitis, Cause Unspecified [J30.9] INVALID FOR* Generalized convulsive epilepsy with intractabl*INVALID FOR* More... FEEDING PROBLEM [R63.3] INVALID FOR* Quadriplegic Infantile Cerebral Palsy [G80.8] INVALID FOR* JOINT CONTRACTURE-MULT JTS [M24.50] INVALID FOR* Torticollis, Unspecified [M43.6] INVALID FOR* Dysphagia [787.2] INVALID FOR* Congenital Musculoskeletal Deformity of Spine [*INVALID FOR* Fever [R50.9] INVALID FOR*04/16/2010 Cholelithiasis [K80.20] INVALID FOR* More... Muscle Spasticity [M62.838] INVALID FOR* More... Gastrostomy in Place [Z93.1] INVALID FOR* More... Seizures [R56.9] INVALID FOR* More... Pain [R52] INVALID FOR*2010 More... Malfunc Other Device/Graft [T85.698A] INVALID FOR* More... Mechanical complication of gastrostomy [K94.23] INVALID FOR* G tube feedings (HCC) [Z93.1] INVALID FOR* More... Status:Closed by DEBORA HART MD on 08/12/18 Normal [facility] PROGRESSon 08-12-2018 Protein mass conc HNO ID: [id number]: Debora HartService: (none)Author Type: PhysicianType: Progress NotesFiled: 08/12/2018 9:35 AMNote Text:I have reviewed the history and physical obtained and documented by theresident and I personally participated in the camejo components. I agree withthe findings and plan of care, with the additions contained within mydictation.Debora Hart M.D. Normal [facility] Protein mass conc HNO ID: [id number]: Bj Zhou (Fel): (none)Author Type: FellowType: Progress NotesFiled: 08/12/2018 9:35 AMNote Text:08/12/2018Colette Goode MD[address] [place] [address]Np: Claudine [id number] Dr. Goode:Thank you for your kind referral of Claudine Joseph. [facility] a [facility] of pressure sore in thecrease of her groin.She is here today to ensure that this wound is not in the area of thespine hardware or in communication with it.SOCIAL HISTORY: Now 28 year sof ageREVIEW OF SYSTEMS: No fevers.RADIOGRAPHS: I have reviewed radiographs of the spine, dated110/13/17*, which demonstrate intact hardware.IMPRESSION: 28-year-old female with history of cerebral palsy andposterior spinal fusion who presents today with a pressure sore in hergroin, and concern for communication with spine hardware. There is nocommunication with the spinal hardwarePLAN:Return to clinic as neededSincerely,Debora Hart MDThe documentation for this note was completed by Bj Campuzano MD actingas scribe for Debora Hart MD. August 12, 2018 9:11 AM. Normal [facility] Protein mass conc HNO ID: [id number]: Mary Patel RtService: (none)Author Type: (none)Type: Progress NotesFiled: 08/12/2018 8:46 AMNote Text: Radiology Service Progress NotePATIENT NAME: Claudine JosephMRN: [id number] OF SERVICE: August 12, 2018TIME: 8:45 AMPATIENT IDENTITY VERIFICATION COMPLETED USING TWO (2) METHODS: Patientconfirmed name verbally and Date of .PATIENT GENDER DATA: Female. status: : NoBreastfeeding status: NO.PATIENT RELEVANT IMPLANT DATA REVIEWED: Not ApplicableRADIOLOGY DEPARTMENT: General X-ray: Exam(s) Completed: Spine X-Ray(s):Scoliosis SeriesPERIPHERAL IV DATA: Not applicableSIGNED BY: Mary Patel RtDeceer 2017 8:45 AM Normal [facility] XR SCOLIOSIS 2V PA STAND/LAT on 08-12-2018 XR SCOLIOSIS 2V PA STAND/LAT * * *Final Report* * *DATE OF EXAM: Aug 12 2018 8:45AM CCX [id number] - XR SCOLIOSIS 2V PA STAND/LAT / REASON: Pain * * * * Physician Interpretation * * * * XR SCOLIOSIS 2V PA STAND/LATHISTORY: scoliosis. Pain .TECHNIQUE: AP and lateral scoliosis series (2 total films).COMPARISON: 12/16/2015RESULT:Dextros coliosis of the thoracolumbar spine is again noted status post thoracolumbar fusion with bilateral rods and laminar wires. Hardware is intact.The degree of scoliosis involving the thoracolumbar spine appears unchanged with the maximal curvature noted within the upper thoracic spine.There has been interval placement of a right-sided PICC line which terminates in the distal SVC.Baclofen pump overlies the right lower abdomen with the intrathecal catheter terminating at T11-T12. Additional older abandoned intrathecal catheter noted and unchanged.IMPRESSION:Dex troscoliosis thoracolumbar spine status post thoracolumbar fusion as described.Baclofen pump with unchanged appearance of intrathecal catheter.New right-sided PICC line terminates in the distal SVC.Chlorine Plant Operator: YAKOV Transcribe Date/Time: Aug 12 2018 10:01ADictated by : ANDRES HUA MDThiwilmar examination was interpreted and the report reviewed and electronically signed by: ANDRES HUA MD on Aug 12 2018 10:28AM [id number] Normal [facility] [place] Echocardiogram completeon Echocardiogram complete REPORT Patient: JAKE Knapp [facility] Rec#: [id number] (Age): 1990(27y) Height: 137.16(cm)/53(i Study Date: 08/02/2017 Weight: 40.82(kg)/90(lb Room#: BSA: 1.23 Type: Loc: Sex: F Reading: Nikhil Pandya DO Referring: NIKHIL PANDYA L Performance Improvement Coordinator: MARY MEDRANO History: GERD. CPT Code(s): ECHO COMPLETE W/ DOPPLER (77922) Study Quality The study quality is technically difficult. Summary: Patient identity verified (pause and confirm). Procedure explained and patient verified understanding. Consent obtained for procedure. Conclusions: Technically difficult study due to underlying medical condition. The left ventricle appears hyperdynamic. The estimated global ejection fraction is greater than 70%. The right ventricular chamber size and systolic function are within normal limits. Normal cardiac chamber sizes. No obvious, significant valvular abnormality is seen. Pulmonary artery pressure could not be estimated. No prior studies available for comparison. Findings Reason For Study: Tachycardia. Left Ventricle: The left ventricular chamber size and thickness is normal. The left ventricle appears hyperdynamic. The estimated global ejection fraction is greater than 70%. Left Atrium: The left atrial chamber size is normal. Right Ventricle: The right ventricular chamber size and systolic function are within normal limits. Right Atrium: The right atrial cavity size is normal. Aortic Valve: The aortic valve is trileaflet. There is no hemodynamically significant stenosis. There is no evidence of aortic regurgitation. Mitral Valve: The mitral valve leaflets appear normal. There is no evidence of mitral valve prolapse. There is a trace of mitral regurgitation. Tricuspid Valve: The tricuspid valve appears normal in structure and function. There is a trace tricuspid regurgitation. Pulmonary artery pressure could not be estimated. Pulmonic Valve: The pulmonic valve is not well visualized. There is no pulmonic stenosis. There is trivial physiological regurgitation of the pulmonic valve. Pericardium: There is no pericardial effusion. Aorta: There is no dilatation of the aortic root. Venous: The inferior vena cava is not visualized. HR 104 BP 86/64 Measurements Chambers MM Name Value Normal Range AV cusp separation (MM) 1.5 cm none Chambers 2D Name Value Normal Range IVSd (2D) 0.87 cm none LVPWd (2D) 0.73 cm none IVS:LVPW ratio (2D) 1.2 ratio none LVIDd (2D) 3.12 cm none LVIDs (2D) 2.36 cm none LV FS (Teichholz) (2D) 24.4 % none LV FS (cube) (2D) 24.4 % none EF Teichholz (2D) 49.9 % none Ao root diameter (2D) 2.1 cm none LA dimension (AP) 2D 2.5 cm none LA:Ao ratio (2D) 1.19 ratio none Volumes/Mass Name Value Normal Range LA ESV SP 4CH (MOD) 8.14 ml none Diastolic/Systolic Function Name Value Normal Range MV E-wave Vmax 0.76 m/sec none MV deceleration time 194 msec none LV E:e' septal ratio 6.9 ratio none LV E:e' lateral ratio 8.7 ratio none Aortic Valve Name Value Normal Range AV Vmax 0.85 m/sec (1 - 1.7) AV peak gradient 3 mmHg (Less Than 36) LVOT diameter 1.5 cm (1.7 - 2.5) LVOT Vmax 0.59 m/sec (0.7 - 1.1) LVOT peak gradient 1 mmHg none LUTHER (continuity Vmax) 1.22 cm2 none Ascending Ao 2 cm none Tricuspid Valve Name Value Normal Range TR Vmax 0.73 m/sec none TR peak gradient 2 mmHg none RAP 5 mmHg none Pulmonic Valve/Qp:Qs Name Value Normal Range PV Vmax 0.77 m/sec (0.6 - 0.9) PV peak gradient 2 mmHg none Electronically Signed at 08/02/2017 11:59:17 by: Nikhil Pandya DO Invalid Interpretation Code [facility] RAD Echocardiogram complete Interface, Rad In [facility] Xper Echopacs - 08/02/2017 12:00 PM EST REPORT Patient: JAKE Knapp [facility] Rec#: [id number] (Age): 1990(27y) Height: 137.16(cm)/53(i Study Date: 08/02/2017 Weight: 40.82(kg)/90(lb Room#: BSA: 1.23 Type: Loc: Sex: F Reading: Nikhil Pandya DO Referring: NIKHIL PANDYA L Performance Improvement Coordinator: MARY MEDRANO History: GERD. CPT Code(s): ECHO COMPLETE W/ DOPPLER (98004) Study Quality The study quality is technically difficult. Summary: Patient identity verified (pause and confirm). Procedure explained and patient verified understanding. Consent obtained for procedure. Conclusions: Technically difficult study due to underlying medical condition. The left ventricle appears hyperdynamic. The estimated global ejection fraction is greater than 70%. The right ventricular chamber size and systolic function are within normal limits. Normal cardiac chamber sizes. No obvious, significant valvular abnormality is seen. Pulmonary artery pressure could not be estimated. No prior studies available for comparison. Findings Reason For Study: Tachycardia. Left Ventricle: The left ventricular chamber size and thickness is normal. The left ventricle appears hyperdynamic. The estimated global ejection fraction is greater than 70%. Left Atrium: The left atrial chamber size is normal. Right Ventricle: The right ventricular chamber size and systolic function are within normal limits. Right Atrium: The right atrial cavity size is normal. Aortic Valve: The aortic valve is trileaflet. There is no hemodynamically significant stenosis. There is no evidence of aortic regurgitation. Mitral Valve: The mitral valve leaflets appear normal. There is no evidence of mitral valve prolapse. There is a trace of mitral regurgitation. Tricuspid Valve: The tricuspid valve appears normal in structure and function. There is a trace tricuspid regurgitation. Pulmonary artery pressure could not be estimated. Pulmonic Valve: The pulmonic valve is not well visualized. There is no pulmonic stenosis. There is trivial physiological regurgitation of the pulmonic valve. Pericardium: There is no pericardial effusion. Aorta: There is no dilatation of the aortic root. Venous: The inferior vena cava is not visualized. HR 104 BP 86/64 Measurements Chambers MM Name Value Normal Range AV cusp separation (MM) 1.5 cm none Chambers 2D Name Value Normal Range IVSd (2D) 0.87 cm none LVPWd (2D) 0.73 cm none IVS:LVPW ratio (2D) 1.2 ratio none LVIDd (2D) 3.12 cm none LVIDs (2D) 2.36 cm none LV FS (Teichholz) (2D) 24.4 % none LV FS (cube) (2D) 24.4 % none EF Teichholz (2D) 49.9 % none Ao root diameter (2D) 2.1 cm none LA dimension (AP) 2D 2.5 cm none LA:Ao ratio (2D) 1.19 ratio none Volumes/Mass Name Value Normal Range LA ESV SP 4CH (MOD) 8.14 ml none Diastolic/Systolic Function Name Value Normal Range MV E-wave Vmax 0.76 m/sec none MV deceleration time 194 msec none LV E:e' septal ratio 6.9 ratio none LV E:e' lateral ratio 8.7 ratio none Aortic Valve Name Value Normal Range AV Vmax 0.85 m/sec (1 - 1.7) AV peak gradient 3 mmHg (Less Than 36) LVOT diameter 1.5 cm (1.7 - 2.5) LVOT Vmax 0.59 m/sec (0.7 - 1.1) LVOT peak gradient 1 mmHg none LUTHER (continuity Vmax) 1.22 cm2 none Ascending Ao 2 cm none Tricuspid Valve Name Value Normal Range TR Vmax 0.73 m/sec none TR peak gradient 2 mmHg none RAP 5 mmHg none Pulmonic Valve/Qp:Qs Name Value Normal Range PV Vmax 0.77 m/sec (0.6 - 0.9) PV peak gradient 2 mmHg none Electronically Signed at 08/02/2017 11:59:17 by: Nikhil CastanonBen DO Invalid Interpretation Code [facility] ECG 12 [place]on 07-26-2017 Atrial Rate Invalid Interpretation Code [facility] Phone: P [place] Invalid Interpretation Code [facility] Phone: P-R Interval Invalid Interpretation Code [facility] Phone: Q-T Interval Invalid Interpretation Code [place] Phone: Q-T Interval (corrected) Invalid Interpretation Code [place] Phone: QRS Duration Invalid Interpretation Code [facility] Phone: QTC Calculation (Bezet) Invalid Interpretation Code [place] Phone: R [place] Invalid Interpretation Code [facility] Phone: T [place] Invalid Interpretation Code [facility] Phone: Ventricular Rate Invalid Interpretation Code [facility] Phone: Basic Metabolic Panelon 08-2 Calcium 9.4 mg/dL Normal 8.4-10.2 [facility] Comment on above: Performed By: #### C METADD, CHEM8, LIPASE, CBCDIF, EDCTNI ####Unless otherwise noted, all testing performed by [address] [phone]: [id number] Director: Xavi Pineda M.D. Chloride 99 mmol/L Normal 98-108 [facility] Comment on above: Performed By: #### C METADD, CHEM8, LIPASE, CBCDIF, EDCTNI ####Unless otherwise noted, all testing performed by [address] [phone]: [id number] Director: Xavi Pineda M.D. CO2 33 mmol/L High 21-32 [facility] Comment on above: Performed By: #### C METADD, CHEM8, LIPASE, CBCDIF, EDCTNI ####Unless otherwise noted, all testing performed by [address] [phone]: [id number] Director: Xavi Pineda M.D. Creatinine 0.44 mg/dL Normal 0.40-1.10 [facility] Comment on above: Performed By: #### C METADD, CHEM8, LIPASE, CBCDIF, EDCTNI ####Unless otherwise noted, all testing performed by [address] [phone]: [id number] Director: Xavi Pineda M.D. eGFR (black) mL/min/{1.73_m2} Normal [facility] Comment on above: Result Comment: Afri can Iranian GFR Calc Performed By: #### C METADD, CHEM8, LIPASE, CBCDIF, EDCTNI ####Unless otherwise noted, all testing performed by [address] [phone]: [id number] Director: Xavi Pineda M.D. eGFR (non-black) mL/min/{1.73_m2} Normal [facility] Comment on above: Result Comment: Non- GFR CalceGFR is an estimated Glomerular Filtration Rate based on the valueof the patient's serum creatinine. In outpatients, eGFR should be usedas a helpful tool in screening for CKD. In inpatients or patients withacute renal failure, eGFR represents the GFR at the moment of the drawand should be used with caution. Performed By: #### C METADD, CHEM8, LIPASE, CBCDIF, EDCTNI ####Unless otherwise noted, all testing performed by [address] [phone]: [id number] Director: Xavi Pineda M.D. Glucose mass conc 101 mg/dL High 70-99 [facility] Comment on above: Result Comment: This test result might be falsely depressed or falsely elevated onsamples drawn from patients taking Sulfasalazine and Sulfapyridine.Venipuncture should occur prior to taking either of these drugs. Performed By: #### C METADD, CHEM8, LIPASE, CBCDIF, EDCTNI ####Unless otherwise noted, all testing performed by [address] [phone]: [id number] Director: Xavi Pineda M.D. Potassium molar conc 3.5 mmol/L Normal 3.5-5.1 [facility] Comment on above: Performed By: #### C METADD, CHEM8, LIPASE, CBCDIF, EDCTNI ####Unless otherwise noted, all testing performed by [address] [phone]: [id number] Director: Xavi Pineda M.D. Sodium 139 mmol/L Normal 135-145 [facility] Comment on above: Performed By: #### C METADD, CHEM8, LIPASE, CBCDIF, EDCTNI ####Unless otherwise noted, all testing performed by [address] [phone]: [id number] Director: Xavi Pineda M.D. Urea nitrogen 13 mg/dL Normal 8-25 [facility] Comment on above: Performed By: #### C METADD, CHEM8, LIPASE, CBCDIF, EDCTNI ####Unless otherwise noted, all testing performed by [phone]: [id number] Director: Xavi Pineda M.D. CBC with Diffon 04-22-2017 Basophils Auto #/vol (Bld) 0.1 K/mcL Normal 0-0.2 [facility] Comment on above: Performed By: #### C METADD, CHEM8, LIPASE, CBCDIF, EDCTNI ####Unless otherwise noted, all testing performed by [address] [phone]: [id number] Director: Xavi Pineda M.D. Basophils/100 WBC Auto (Bld) 0.6 % Normal [facility] Comment on above: Performed By: #### C METADD, CHEM8, LIPASE, CBCDIF, EDCTNI ####Unless otherwise noted, all testing performed by [address] [phone]: [id number] Director: Xavi Pineda M.D. Eosinophils 0.2 K/mcL Normal 0-0.5 [facility] Comment on above: Performed By: #### C METADD, CHEM8, LIPASE, CBCDIF, EDCTNI ####Unless otherwise noted, all testing performed by [address]8509[address]IA: [id number] Director: Xavi Pineda M.D. Eosinophils/100 leukocytes 1.4 % Normal [facility] Comment on above: Performed By: #### C METADD, CHEM8, LIPASE, CBCDIF, EDCTNI ####Unless otherwise noted, all testing performed by [place] [id number]: [id number] Director: Xavi Pineda M.D. Erythrocyte distribution width Auto Ratio (RBC) 14.4 % Normal 10.0-14.4 [facility] Comment on above: Performed By: #### C METADD, CHEM8, LIPASE, CBCDIF, EDCTNI ####Unless otherwise noted, all testing performed by [address]8509CLIA: [id number] Director: Xavi Pineda M.D. Erythrocytes (RBC) 4.46 M/mcL Normal 3.7-5.0 [facility] Comment on above: Performed By: #### C METADD, CHEM8, LIPASE, CBCDIF, EDCTNI ####Unless otherwise noted, all testing performed by [address]8509[address]IA: [id number] Director: Xavi Pindea M.D. Hematocrit (HCT) 39.7 % Normal 34.4-44.8 [facility] Comment on above: Performed By: #### C METADD, CHEM8, LIPASE, CBCDIF, EDCTNI ####Unless otherwise noted, all testing performed by [address] [phone]: [id number] Director: Xavi Pineda M.D. Hemoglobin mass conc (Bld) 13.3 g/dL Normal 11.6-15.4 [facility] Comment on above: Performed By: #### C METADD, CHEM8, LIPASE, CBCDIF, EDCTNI ####Unless otherwise noted, all testing performed by [address] [phone]: [id number] Director: Xavi Pineda M.D. Lymphocytes 2.1 K/mcL Normal 1.0-3.7 [facility] Comment on above: Performed By: #### C METADD, CHEM8, LIPASE, CBCDIF, EDCTNI ####Unless otherwise noted, all testing performed by [address] [phone]: [id number] Director: Xavi Pineda M.D. Lymphocytes/100 leukocytes 18.5 % Normal [facility] Comment on above: Performed By: #### C METADD, CHEM8, LIPASE, CBCDIF, EDCTNI ####Unless otherwise noted, all testing performed by [address] [phone]: [id number] Director: Xavi Pineda M.D. MCH 29.8 pg Normal 27.9-33.9 [facility] Comment on above: Performed By: #### C METADD, CHEM8, LIPASE, CBCDIF, EDCTNI ####Unless otherwise noted, all testing performed by [address] [phone]: [id number] Director: Xavi Pineda M.D. [facility] mass conc (RBC) 33.4 g/dL Normal 33.1-35.1 [facility] Comment on above: Performed By: #### C METADD, CHEM8, LIPASE, CBCDIF, EDCTNI ####Unless otherwise noted, all testing performed by [address] [phone]: [id number] Director: Xavi Pineda M.D. MCV 89.0 fL Normal 82.6-98.9 [facility] Comment on above: Performed By: #### C METADD, CHEM8, LIPASE, CBCDIF, EDCTNI ####Unless otherwise noted, all testing performed by [address] [phone]: [id number] Director: Xavi Pineda M.D. Monocytes 0.8 K/mcL High 0.1-0.6 [facility] Comment on above: Performed By: #### C METADD, CHEM8, LIPASE, CBCDIF, EDCTNI ####Unless otherwise noted, all testing performed by [address] [phone]: [id number] Director: Xavi Pineda M.D. Monocytes/100 leukocytes 7.2 % Normal [facility] Comment on above: Performed By: #### C METADD, CHEM8, LIPASE, CBCDIF, EDCTNI ####Unless otherwise noted, all testing performed by [address] [phone]: [id number] Director: Xavi Pineda M.D. Neutrophils 8.4 K/mcL High 1.2-6.9 [facility] Comment on above: Performed By: #### C METADD, CHEM8, LIPASE, CBCDIF, EDCTNI ####Unless otherwise noted, all testing performed by [address] [phone]: [id number] Director: Xavi Pineda M.D. Platelet mean volume (PMV) 11.1 fL High 7.0-10.6 [facility] Comment on above: Performed By: #### C METADD, CHEM8, LIPASE, CBCDIF, EDCTNI ####Unless otherwise noted, all testing performed by [address] [phone]: [id number] Director: Xavi Pineda M.D. Platelets 116 K/mcL Low 162-402 [facility] Comment on above: Performed By: #### C METADD, CHEM8, LIPASE, CBCDIF, EDCTNI ####Unless otherwise noted, all testing performed by [address] [phone]: [id number] Director: Xavi Pineda M.D. Segmented Neut % 72.3 % Normal [facility] Comment on above: Performed By: #### C METADD, CHEM8, LIPASE, CBCDIF, EDCTNI ####Unless otherwise noted, all testing performed by [address] [phone]: [id number] Director: Xavi Pineda M.D. WBC (Leukocytes) 11.6 K/mcL High 3.4-10.6 [facility] Comment on above: Performed By: #### C METADD, CHEM8, LIPASE, CBCDIF, EDCTNI ####Unless otherwise noted, all testing performed by [address] [phone]: [id number] Director: Xavi Pineda M.D. CHEST (ONE VIEW ONLY)on 03-31 CHEST (ONE VIEW ONLY) Final ReportAccession No: [id number] Performed: Apr 22 2017 6:36AMExamination: CHEST (ONE VIEW ONLY)hypoxia.CHEST (ONE VIEW ONLY) (2 images) 04/22/2017 6:36 AMComparison: AP chest 01/17/2015IMPRESSION:1. 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 Status post thoracolumbar spinal fixation.3. Low lung volumes with hazy alveolar density lateral lower left lungconcerning for pneumonia.4. Small volume right hemithorax appears pneumatized.5. Cardiac silhouette appears enlarged. This could be projectional.Interpretin g Physician: PRUDENCE MALCOLM M.D.Trans: : cc: Normal [facility] CMET Add-On Testson 04-22-20 17 Alanine aminotransferase (ALT) 31 U/L Normal 14-65 [facility] Comment on above: Result Comment: This test result might be falsely depressed or falsely elevated onsamples drawn from patients taking Sulfasalazine and Sulfapyridine.Venipuncture should occur prior to taking either of these drugs. Performed By: #### C METADD, CHEM8, LIPASE, CBCDIF, EDCTNI ####Unless otherwise noted, all testing performed by [address] [phone]: [id number] Director: Xavi Pineda M.D. Albumin 3.4 g/dL Normal 3.2-5.2 [facility] Comment on above: Performed By: #### C METADD, CHEM8, LIPASE, CBCDIF, EDCTNI ####Unless otherwise noted, all testing performed by [address] [phone]: [id number] Director: Xavi Pineda M.D. Alkaline phosphatase (ALP) 148 U/L High 40-140 [facility] Comment on above: Performed By: #### C METADD, CHEM8, LIPASE, CBCDIF, EDCTNI ####Unless otherwise noted, all testing performed by [address] [phone]: [id number] Director: Xavi Pineda M.D. Aspartate aminotransferase (AST) 21 U/L Normal 0-45 [facility] Comment on above: Result Comment: This test result might be falsely depressed or falsely elevated onsamples drawn from patients taking Sulfasalazine and Sulfapyridine.Venipuncture should occur prior to taking either of these drugs. Performed By: #### C METADD, CHEM8, LIPASE, CBCDIF, EDCTNI ####Unless otherwise noted, all testing performed by [address] [phone]: [id number] Director: Xavi Pineda M.D. Bilirubin (total) 0.2 mg/dL Low 0.3-1.2 [facility] Comment on above: Performed By: #### C METADD, CHEM8, LIPASE, CBCDIF, EDCTNI ####Unless otherwise noted, all testing performed by [address], [place] [phone]: [id number] Director: Xavi Pineda M.D. Protein 8.0 g/dL Normal 6.0-8.0 [facility] Comment on above: Performed By: #### C METADD, CHEM8, LIPASE, CBCDIF, EDCTNI ####Unless otherwise noted, all testing performed by [address] [phone]: [id number] Director: Xavi Pineda M.D. CT ABDO,PELVIS W/O CONTRASTo n 04-22-2017 CT ABDO,PELVIS W/O CONTRAST Final ReportAccession No: [id number] Performed: Apr 22 2017 1:06PMExamination: CT ABDO,PELVIS W/O CONTRASTCLINICAL HISTORY: Short of breath. Abdominal and pelvis pain. Cerebralpalsy.CT CHEST, ABDOMEN AND PELVIS WITHOUT IV CONTRAST 04/22/2017 1:06 PMCOMPARISON: NoneTECHNIQUE: Without IV contrast, contiguous helical CT imaging utilizingmultidetector CT scanner with submillimeter collimation were obtainedfrom the thoracic inlet through the ischial tuberosities, then the CTtechnologist performed 2-D axial, coronal and sagittal 3 x 3 mmreformatted imaging through the chest on a workstation.Attempted contrast administration resulted in infiltration in the rightarm without complicating factor.FINDINGS: Evaluation of the chest, abdomen and pelvis is limited becauseof beam hardening artifact from fixation rods extending from the upperthoracic spine to the bilateral hemipelves. There is chronic anatomicdistortion of the thorax with no discrete consolidation or noduleevident. The heart size appears normal. Descending thoracic aortameasures 16 mm diameter and ascending thoracic aorta measures 2 cmdiameter. No pericardial or pleural effusion is seen. There is noadenopathy. Soft tissue structures about the chest appear unremarkable.In the abdomen, several tiny nonobstructing right renal calculi aredemonstrated at the midpole region. A subcutaneous power pack overliesthe right side of the abdomen obscuring detail. Status postcholecystectomy. The liver, spleen, pancreas, adrenal glands, aorta andinferior vena cava appear unremarkable. No abdominal adenopathy or freefluid is seen. Gastrostomy tube tethers along the distal stomach. Theunopacified bowel has an unremarkable pattern throughout. No acuteinflammatory process is evident. In the pelvis, the urinary bladder ismarkedly distended. Uterus and adnexal structures appear unremarkable. Nopelvic adenopathy or free fluid is seen.IMPRESSION:1. Limiting factors include thoracolumbar pelvic spinal fixation withrods resulting in beam hardening artifact as well as power pack deviceright abdomen which also results in beam hardening artifact. 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 No definite acute CT chest abnormality.3. No definite CT evidence of an acute intra-abdominal or intrapelvicprocess.4. Cholecystectomy.5. Very small, nonobstructing calculi right kidney.6. Urinary bladder is distended.Interpreting Physician: PRUDENCE MALCOLM M.D.Trans: [id number] : cc: Normal [facility] CT CHEST W/O CONTRASTon 03-31 CT CHEST W/O CONTRAST Final ReportAccession No: [id number] Performed: Apr 22 2017 1:06PMExamination: CT CHEST W/O CONTRASTCLINICAL HISTORY: Short of breath. Abdominal and pelvis pain. Cerebralpalsy.CT CHEST, ABDOMEN AND PELVIS WITHOUT IV CONTRAST 04/22/2017 1:06 PMCOMPARISON: NoneTECHNIQUE: Without IV contrast, contiguous helical CT imaging utilizingmultidetector CT scanner with submillimeter collimation were obtainedfrom the thoracic inlet through the ischial tuberosities, then the CTtechnologist performed 2-D axial, coronal and sagittal 3 x 3 mmreformatted imaging through the chest on a workstation.Attempted contrast administration resulted in infiltration in the rightarm without complicating factor.FINDINGS: Evaluation of the chest, abdomen and pelvis is limited becauseof beam hardening artifact from fixation rods extending from the upperthoracic spine to the bilateral hemipelves. There is chronic anatomicdistortion of the thorax with no discrete consolidation or noduleevident. The heart size appears normal. Descending thoracic aortameasures 16 mm diameter and ascending thoracic aorta measures 2 cmdiameter. No pericardial or pleural effusion is seen. There is noadenopathy. Soft tissue structures about the chest appear unremarkable.In the abdomen, several tiny nonobstructing right renal calculi aredemonstrated at the midpole region. A subcutaneous power pack overliesthe right side of the abdomen obscuring detail. Status postcholecystectomy. The liver, spleen, pancreas, adrenal glands, aorta andinferior vena cava appear unremarkable. No abdominal adenopathy or freefluid is seen. Gastrostomy tube tethers along the distal stomach. Theunopacified bowel has an unremarkable pattern throughout. No acuteinflammatory process is evident. In the pelvis, the urinary bladder ismarkedly distended. Uterus and adnexal structures appear unremarkable. Nopelvic adenopathy or free fluid is seen.IMPRESSION:1. Limiting factors include thoracolumbar pelvic spinal fixation withrods resulting in beam hardening artifact as well as power pack deviceright abdomen which also results in beam hardening artifact. 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 No definite acute CT chest abnormality.3. No definite CT evidence of an acute intra-abdominal or intrapelvicprocess.4. Cholecystectomy.5. Very small, nonobstructing calculi right kidney.6. Urinary bladder is distended.Interpreting Physician: PRUDENCE MALCOLM M.D.Trans: [id number] : cc: Normal [facility] Culture, Bloodon 04-22-2017 Culture, Blood Test Name: Culture, Blood Culture Status: Final Culture Report: No Growth - Day 5 Micro Source: BLOOD Normal [facility] Comment on above: Performed By: #### C METADD, CHEM8, LIPASE, CBCDIF, EDCTNI ####Unless otherwise noted, all testing performed by [address] [id number]: [id number] Director: Xavi Pineda M.D. Culture, Blood Test Name: Culture, Blood Culture Status: Final Culture Report: No Growth - Day 5 Micro Source: BLOOD Normal [facility] Comment on above: Performed By: #### C METADD, CHEM8, LIPASE, CBCDIF, EDCTNI ####Unless otherwise noted, all testing performed by [address] [id number]: [id number] Director: Xavi Pineda M.D. ED Cardiac Troponin-Ion 03-31 Troponin I.cardiac mass conc ng/mL Normal < 45 [facility] Comment on above: Result Comment: Elev ation of troponin indicates some degree of myocardial necrosis butunless there is a significant rise and/or fall (if elevated) identified,it unlikely that an acute event has taken place Performed By: #### C METADD, CHEM8, LIPASE, CBCDIF, EDCTNI ####Unless otherwise noted, all testing performed by [place] [id number]: [id number] Director: Xavi Pineda M.D. Lactic Acidon 04-22-2017 Lactate 1.5 mmol/L Normal 0.6-2.0 [facility] Comment on above: Performed By: #### L A ####Unless otherwise noted, all testing performed by [address] [id number]: [id number] Director: Xavi Pineda M.D. Lipaseon 04-22-2017 Lipase 81 U/L Normal 73-393 [facility] Comment on above: Performed By: #### C METADD, CHEM8, LIPASE, CBCDIF, EDCTNI ####Unless otherwise noted, all testing performed by [address] [id number]: [id number] Director: Xavi Pineda M.D. Urinalysis, Routineon 2016 Amorphous,Crystal Occasional Abnormal None Seen [facility] Comment on above: Performed By: #### U A ####Unless otherwise noted, all testing performed by [address] [id number]: [id number] Director: Xavi Pineda M.D. Bilirubin,Urine Negative Normal NEG;NEGATIVE [facility] Comment on above: Performed By: #### U A ####Unless otherwise noted, all testing performed by [address] [id number]: [id number] Director: Xavi Pineda M.D. Blood,Urine Negative Normal NEG;NEGATIVE [facility] Comment on above: Performed By: #### U A ####Unless otherwise noted, all testing performed by [address] [id number]: [id number] Director: Xavi Pineda M.D. Ketone,Urine Negative Normal NEG;NEGATIVE [facility] Comment on above: Performed By: #### U A ####Unless otherwise noted, all testing performed by [address] [id number]: [id number] Director: Xavi Pineda M.D. Leuk.Esterase,Urine Trace Abnormal Negative [facility] Comment on above: Performed By: #### U A ####Unless otherwise noted, all testing performed by [address] [id number]: [id number] Director: Xavi Pineda M.D. Mucus, Urine Rare Abnormal None Seen [facility] Comment on above: Performed By: #### U A ####Unless otherwise noted, all testing performed by [address] [id number]: [id number] Director: Xavi Pineda M.D. Nitrite,Urine Negative Normal NEG;NEGATIVE [facility] Comment on above: Performed By: #### U A ####Unless otherwise noted, all testing performed by [address] [id number]: [id number] Director: Xavi Pineda M.D. Protein,Urine 30 mg/dL High < 30 [facility] Comment on above: Performed By: #### U A ####Unless otherwise noted, all testing performed by [address] [id number]: [id number] Director: Xavi Pineda M.D. Specific [place],Urine 1.018 Normal 1.003-1.029 [facility] Comment on above: Performed By: #### U A ####Unless otherwise noted, all testing performed by [address] [id number]: [id number] Director: Xavi Pineda M.D. Squamous Epithelial < 1 Normal 0-40 [facility] Comment on above: Performed By: #### U A ####Unless otherwise noted, all testing performed by [address] [phone]: [id number] Director: Xavi Pineda M.D. Urine, character Cloudy Normal [facility] Comment on above: Performed By: #### U A ####Unless otherwise noted, all testing performed by [address] [id number]: [id number] Director: Xavi Pineda M.D. Urine, color Yellow Normal [facility] Comment on above: Performed By: #### U A ####Unless otherwise noted, all testing performed by [address] [id number]: [id number] Director: Xavi Pineda M.D. Urine, erythrocytes in sediment by area 2 /[HPF] Normal 0-5 [facility] Comment on above: Performed By: #### U A ####Unless otherwise noted, all testing performed by [address] [id number]: [id number] Director: Xavi Pineda M.D. Urine, glucose presence Negative Normal NEG;NEGATIVE [facility] Comment on above: Performed By: #### U A ####Unless otherwise noted, all testing performed by [address] [id number]: [id number] Director: Xavi Pineda M.D. Urine, leukocytes in sedmiment 7 /[HPF] High 0-5 [facility] Comment on above: Performed By: #### U A ####Unless otherwise noted, all testing performed by [address] [id number]: [id number] Director: Xavi Pineda M.D. Urine, pH 8.0 [pH] Normal 4.5-8.0 [facility] Comment on above: Performed By: #### U A ####Unless otherwise noted, all testing performed by [address] [id number]: [id number] Director: Xavi Pineda M.D. Urobilinogen,Urine < 2.0 Normal <2 [facility] Comment on above: Performed By: #### U A ####Unless otherwise noted, all testing performed by [address] [id number]: [id number] Director: Xavi Pineda M.D. Vital Signs Date Time Vital Sign Value Performing Clinician Facility 05-10-2025 14:00-0400 Body temperature 97.3 [degF] Dr. Colette Goode MD Work Phone: [facility] 05-10-2025 14:00-0400 Diastolic blood pressure 67 mm[Hg] Dr. Colette Goode MD Work Phone: [facility] 05-10-2025 14:00-0400 Heart rate 104 /min Dr. Colette Goode MD Work Phone: [facility] 05-10-2025 14:00-0400 Respiratory rate 18 /min Dr. Colette Goode MD Work Phone: [facility] 05-10-2025 14:00-0400 Systolic blood pressure 104 mm[Hg] Dr. Colette Goode MD Work Phone: [facility] 05-03-2025 11:38-0400 Body temperature 97.3 [degF] Dr. Colette Goode MD Work Phone: [facility] 05-03-2025 11:38-0400 Diastolic blood pressure 52 mm[Hg] Dr. Colette Goode MD Work Phone: [facility] 05-03-2025 11:38-0400 Heart rate 83 /min Dr. Colette Goode MD Work Phone: [facility] 05-03-2025 11:38-0400 Respiratory rate 18 /min Dr. Colette Goode MD Work Phone: [facility] 05-03-2025 11:38-0400 Systolic blood pressure 93 mm[Hg] Dr. Colette Goode MD Work Phone: [facility] 05-01-2025 10:19-0400 Body height 137.[address] Colette Goode MD Work Phone: [phone] [place] [address] 05-01-2025 10:19-0400 Body mass index (BMI) [Ratio] 18.1 kg/m2 Dr. Colette Goode MD Work Phone: [phone] [place] [address] 05-01-2025 10:19-0400 Body temperature 97 [degF] Dr. Colette Goode MD Work Phone: [phone](352)[phone] [place] [address] 05-01-2025 10:19-0400 Body weight 34.[address] Colette Goode MD Work Phone: [facility] 05-01-2025 10:19-0400 Diastolic blood pressure 73 mm[Hg] Dr. Colette Goode MD Work Phone: [facility] 05-01-2025 10:19-0400 Heart rate 99 /min Dr. Colette Goode MD Work Phone: [facility] 05-01-2025 10:19-0400 Inhaled oxygen flow rate 2 L/min Dr. Colette Goode MD Work Phone: [facility] 05-01-2025 10:19-0400 Respiratory rate 18 /min Dr. Colette Goode MD Work Phone: [facility] 05-01-2025 10:19-0400 SaO2% (BldA) [Mass fraction] 98 % Dr. Colette Goode MD Work Phone: [facility] 05-01-2025 10:19-0400 Systolic blood pressure 108 mm[Hg] Dr. Colette Goode MD Work Phone: [facility] 04-19-2025 14:41-0400 Body temperature 97.7 [degF] Dr. Colette Goode MD Work Phone: [facility] 04-19-2025 14:41-0400 Diastolic blood pressure 75 mm[Hg] Dr. Colette Goode MD Work Phone: [facility] 04-19-2025 14:41-0400 Heart rate 106 /min Dr. Colette Goode MD Work Phone: [facility] 04-19-2025 14:41-0400 Respiratory rate 14 /min Dr. Colette Goode MD Work Phone: [facility] 04-19-2025 14:41-0400 Systolic blood pressure 108 mm[Hg] Dr. Colette Goode MD Work Phone: [facility] 04-06-2025 16:12-0400 Body temperature 98.9 [degF] Dr. Colette Goode MD Work Phone: [facility] 04-06-2025 16:12-0400 Diastolic blood pressure 63 mm[Hg] Dr. Colette Goode MD Work Phone: [facility] 04-06-2025 16:12-0400 Heart rate 78 /min Dr. Colette Goode MD Work Phone: [facility] 04-06-2025 16:12-0400 Respiratory rate 14 /min Dr. Colette Goode MD Work Phone: [facility] 04-06-2025 16:12-0400 SaO2% (BldA) [Mass fraction] 97 % Dr. Colette Goode MD Work Phone: [facility] 04-06-2025 16:12-0400 Systolic blood pressure 94 mm[Hg] Dr. Colette Goode MD Work Phone: [facility] 04-06-2025 16:00-0400 Inhaled oxygen flow rate 2 L/min Dr. Colette Goode MD Work Phone: [facility] 04-06-2025 12:47-0400 Body height 134.[address] Colette Goode MD Work Phone: [facility] 04-05-2025 13:24-0400 Body temperature 98.7 [degF] Dr. Colette Goode MD Work Phone: [facility] 04-05-2025 13:24-0400 Diastolic blood pressure 76 mm[Hg] Dr. Colette Goode MD Work Phone: [facility] 04-05-2025 13:24-0400 Heart rate 119 /min Dr. Colette Goode MD Work Phone: [facility] 04-05-2025 13:24-0400 Respiratory rate 18 /min Dr. Colette Goode MD Work Phone: [facility] 04-05-2025 13:24-0400 Systolic blood pressure 113 mm[Hg] Dr. Colette Goode MD Work Phone: [facility] 03-29-2025 13:30-0400 Body mass index (BMI) [Ratio] 18.8 kg/m2 Dr. Colette Goode MD Work Phone: [facility] 03-29-2025 13:30-0400 Body temperature 97.3 [degF] Dr. Colette Goode MD Work Phone: [facility] 03-29-2025 13:30-0400 Diastolic blood pressure 79 mm[Hg] Dr. Colette Goode MD Work Phone: [facility] 03-29-2025 13:30-0400 Heart rate 106 /min Dr. Colette Goode MD Work Phone: [facility] 03-29-2025 13:30-0400 Respiratory rate 18 /min Dr. Colette Goode MD Work Phone: [facility] 03-29-2025 13:30-0400 Systolic blood pressure 111 mm[Hg] Dr. Colette Goode MD Work Phone: [facility] 03-14-2025 10:22-0400 Body height 134.[address] Colette Goode MD Work Phone: [facility] 03-14-2025 10:22-0400 Body weight 34.[address] Colette Goode MD Work Phone: [facility] 12-14-2024 14:01-0400 Diastolic blood pressure 74 mm[Hg] Ruma Godwin [employer] Work Phone: [facility] 12-14-2024 14:01-0400 Heart rate 93 /min Ruma Godwin [employer] Work Phone: [facility] 12-14-2024 14:01-0400 Systolic blood pressure 112 mm[Hg] Ruma Godwin [employer] Work Phone: [facility] 11-07-2024 11:02-0400 Diastolic blood pressure 68 mm[Hg] Celena Fields MD Work Phone: [facility] 11-07-2024 11:02-0400 Heart rate 102 /min Celena Fields MD Work Phone: [facility] 11-07-2024 11:02-0400 Systolic blood pressure 104 mm[Hg] Celena Fields MD Work Phone: [facility] 04-04-2024 14:21-0400 Body mass index (BMI) [Ratio] 22.34 kg/m2 Yany Wright [employer] Work Phone: [facility] 04-04-2024 14:21-0400 Body weight 38.96 kg Yany Wright [employer] Work Phone: [facility] Comment on above: Wheelchair weight 128.4 04-04-2024 14:21-0400 Diastolic blood pressure 68 mm[Hg] Yany Wright [employer] Work Phone: [facility] 04-04-2024 14:21-0400 Heart rate 103 /min Yany Wright [employer] Work Phone: [facility] 04-04-2024 14:21-0400 Systolic blood pressure 100 mm[Hg] Yany Wright [employer] Work Phone: [facility] 03-22-2024 12:46-0400 SaO2% (BldA) [Mass fraction] 87 % Stephy Cisse MD Work Phone: [facility] Comment on above: RA 03-22-2024 12:37-0400 Body height 132.1 cm Stephy Cisse MD Work Phone: [facility] 03-22-2024 12:37-0400 Body mass index (BMI) [Ratio] 19.5 kg/m2 Stephy Cisse MD Work Phone: [facility] 03-22-2024 12:37-0400 Body temperature 97.59 [degF] Stephy Cisse MD Work Phone: [facility] 03-22-2024 12:37-0400 Body weight 34.02 kg Stephy Cisse MD Work Phone: [facility] 03-22-2024 12:37-0400 Diastolic blood pressure 70 mm[Hg] Stephy Cisse MD Work Phone: [facility] 03-22-2024 12:37-0400 Heart rate 97 /min Stephy Cisse MD Work Phone: [facility] 03-22-2024 12:37-0400 Respiratory rate 18 /min Stephy Cisse MD Work Phone: [facility] 03-22-2024 12:37-0400 Systolic blood pressure 102 mm[Hg] Stephy Cisse MD Work Phone: [facility] 03-14-2024 07:44-0400 Diastolic blood pressure 74 mm[Hg] Celena Fields MD Work Phone: [facility] 03-14-2024 07:44-0400 Heart rate 84 /min Celena Fields MD Work Phone: [facility] 03-14-2024 07:44-0400 Systolic blood pressure 112 mm[Hg] Celena Fields MD Work Phone: [facility] 01-18-2024 13:24-0400 Body height 132.1 cm Richar Talbert MD Work Phone: [facility] 01-18-2024 13:24-0400 Body mass index (BMI) [Ratio] 19.5 kg/m2 Richar Talbert MD Work Phone: [facility] 01-18-2024 13:24-0400 Body weight 34.02 kg Richar Talbert MD Work Phone: [facility] 01-18-2024 13:24-0400 Diastolic blood pressure 85 mm[Hg] Richar Talbert MD Work Phone: [facility] 01-18-2024 13:24-0400 Heart rate 111 /min Richar Talbert MD Work Phone: [facility] 01-18-2024 13:24-0400 Respiratory rate 16 /min Richar Talbert MD Work Phone: [facility] 01-18-2024 13:24-0400 Systolic blood pressure 136 mm[Hg] Richar Talbert MD Work Phone: [facility] 12-13-2023 14:02-0400 Body mass index (BMI) [Ratio] 19.5 kg/m2 Ruma Cottrello [employer] Work Phone: [facility] 12-13-2023 14:02-0400 Body weight 34.02 kg Ruma Cottrello [employer] Work Phone: [facility] 12-13-2023 14:02-0400 Diastolic blood pressure 65 mm[Hg] Ruma Cottrello [employer] Work Phone: [facility] 12-13-2023 14:02-0400 Heart rate 96 /min Ruma Godwin [employer] Work Phone: [facility] 12-13-2023 14:02-0400 Systolic blood pressure 89 mm[Hg] Ruma Godwin [employer] Work Phone: [facility] 11-26-2023 15:02-0400 Body height 132.1 cm Stephy Cisse MD Work Phone: [facility] Comment on above: in wheelchair 11-26-2023 15:02-0400 Body mass index (BMI) [Ratio] 19.5 kg/m2 Stephy Cisse MD Work Phone: [facility] 11-26-2023 15:02-0400 Body temperature 98.01 [degF] Stephy Cisse MD Work Phone: [facility] 11-26-2023 15:02-0400 Body weight 34.02 kg Stephy Cisse MD Work Phone: [facility] Comment on above: in wheelchair 11-26-2023 15:02-0400 Diastolic blood pressure 65 mm[Hg] Stephy Cisse MD Work Phone: [facility] 11-26-2023 15:02-0400 Heart rate 106 /min Stephy Cisse MD Work Phone: [facility] 11-26-2023 15:02-0400 SaO2% (BldA) [Mass fraction] 98 % Stephy Cisse MD Work Phone: [facility] 11-26-2023 15:02-0400 Systolic blood pressure 104 mm[Hg] Stephy Cisse MD Work Phone: [facility] 11-10-2023 15:23-0400 Body mass index (BMI) [Ratio] 18.08 kg/m2 Celena Fields MD Work Phone: [facility] 11-10-2023 15:23-0400 Body weight 34.02 kg Celena Fields MD Work Phone: [facility] 11-10-2023 15:23-0400 Diastolic blood pressure 70 mm[Hg] Celena Fields MD Work Phone: [facility] 11-10-2023 15:23-0400 Heart rate 75 /min Celena Fields MD Work Phone: [facility] 11-10-2023 15:23-0400 Systolic blood pressure 110 mm[Hg] Celena Fields MD Work Phone: [facility] 09-13-2023 10:57-0500 Body height 137.2 cm Yany Wright [employer] Work Phone: [facility] 09-13-2023 10:57-0500 Respiratory rate 16 /min Yany Wright [employer] Work Phone: [facility] 06-01-2023 13:04-0400 Body mass index (BMI) [Ratio] 18.08 kg/m2 Celena Fields MD Work Phone: [facility] 06-01-2023 13:04-0400 Body weight 34.02 kg Celena Fields MD Work Phone: [facility] 04-21-2023 10:11-0400 Diastolic blood pressure 68 mm[Hg] Sunita Mejia MD Work Phone: [facility] Comment on above: Auto 04-21-2023 10:11-0400 Heart rate 99 /min Sunita Mejia MD Work Phone: [facility] 04-21-2023 10:11-0400 Systolic blood pressure 96 mm[Hg] Sunita Mejia MD Work Phone: [facility] Comment on above: Auto 02-02-2023 13:22-0400 Body height 137.2 cm Celena Fields MD Work Phone: [facility] 02-02-2023 13:22-0400 Body mass index (BMI) [Ratio] 18.08 kg/m2 Celena Fields MD Work Phone: [facility] 02-02-2023 13:22-0400 Body weight 34.02 kg Celena Fields MD Work Phone: [facility] Comment on above: per documented weight 7 days ago 02-02-2023 13:22-0400 Diastolic blood pressure 75 mm[Hg] Celena Fields MD Work Phone: [facility] 02-02-2023 13:22-0400 Heart rate 108 /min Celena Fields MD Work Phone: [facility] 02-02-2023 13:22-0400 Systolic blood pressure 112 mm[Hg] Celena Fields MD Work Phone: [facility] 12-01-2022 12:55-0400 Body height 137.2 cm Celena Fields MD Work Phone: [facility] 12-01-2022 12:55-0400 Body mass index (BMI) [Ratio] 18.08 kg/m2 Celena Fields MD Work Phone: [facility] 12-01-2022 12:55-0400 Body weight 34.02 kg Celena Fields MD Work Phone: [facility] 12-01-2022 12:55-0400 Diastolic blood pressure 76 mm[Hg] Celena Fields MD Work Phone: [facility] 12-01-2022 12:55-0400 Heart rate 120 /min Celena Fields MD Work Phone: [facility] 12-01-2022 12:55-0400 Systolic blood pressure 110 mm[Hg] Celena Fields MD Work Phone: [facility] 11-03-2022 11:10-0500 Body height 137.2 cm Celena Fields MD Work Phone: [facility] 11-03-2022 11:10-0500 Body mass index (BMI) [Ratio] 18.08 kg/m2 Celena Fields MD Work Phone: [facility] 11-03-2022 11:10-0500 Body weight 34.02 kg Celena Fields MD Work Phone: [facility] 11-03-2022 11:10-0500 Diastolic blood pressure 74 mm[Hg] Celena Fields MD Work Phone: [facility] 11-03-2022 11:10-0500 Heart rate 116 /min Celena Fields MD Work Phone: [facility] 11-03-2022 11:10-0500 Systolic blood pressure 111 mm[Hg] Celena Fields MD Work Phone: [facility] 10-13-2022 10:36-0500 Diastolic blood pressure 77 mm[Hg] Celena Fields MD Work Phone: [facility] 10-13-2022 10:36-0500 Heart rate 123 /min Celena Fields MD Work Phone: [facility] 10-13-2022 10:36-0500 Systolic blood pressure 112 mm[Hg] Celena Fields MD Work Phone: [facility] 09-22-2022 13:04-0500 Diastolic blood pressure 71 mm[Hg] Augusto Moncada MD Work Phone: [facility] 09-22-2022 13:04-0500 Heart rate 112 /min Augusto Moncada MD Work Phone: [facility] 09-22-2022 13:04-0500 Systolic blood pressure 106 mm[Hg] Augusto Moncada MD Work Phone: [facility] 07-25-2022 11:08-0500 Body temperature 98.49 [degF] Kenyetta Domingo RN [facility] 07-25-2022 11:08-0500 Heart rate 99 /min Kenyetta Domingo RN [facility] 07-25-2022 11:08-0500 Respiratory rate 20 /min Kenyetta Domingo RN [facility] 07-25-2022 11:08-0500 SaO2% (BldA) [Mass fraction] 100 % Kenyetta Domingo RN [facility] 07-22-2022 09:01-0500 Body temperature 98.1 [degF] Christine Marroqiun RN [facility] 07-22-2022 09:01-0500 Diastolic blood pressure 72 mm[Hg] Christine Marroquin RN [facility] 07-22-2022 09:01-0500 Heart rate 94 /min Christine Marroquin RN [facility] 07-22-2022 09:01-0500 Respiratory rate 14 /min Christine Marroquin RN [facility] 07-22-2022 09:01-0500 SaO2% (BldA) [Mass fraction] 99 % Christine Marroquin RN [facility] 07-22-2022 09:01-0500 Systolic blood pressure 112 mm[Hg] Christine Marroquin RN [facility] 07-21-2022 21:12-0500 Respiratory rate 25 /min Fernando Camacho MD Work Phone: [facility] 07-21-2022 11:28-0500 Body temperature 98.01 [degF] Fernando Camacho MD Work Phone: [facility] 07-21-2022 11:28-0500 Diastolic blood pressure 74 mm[Hg] Fernando Camacho MD Work Phone: [facility] 07-21-2022 11:28-0500 Heart rate 114 /min Fernando Camacho MD Work Phone: [facility] 07-21-2022 11:28-0500 SaO2% (BldA) [Mass fraction] 98 % Fernando Camacho MD Work Phone: [facility] 07-21-2022 11:28-0500 Systolic blood pressure 114 mm[Hg] Fernando Camacho MD Work Phone: [facility] 07-16-2022 06:00-0500 Body mass index (BMI) [Ratio] 17.97 kg/m2 Fernando Camacho MD Work Phone: [facility] 07-16-2022 06:00-0500 Body weight 33.8 kg Fernando Camacho MD Work Phone: [facility] 07-15-2022 21:00-0500 Body height 137.2 cm Fernando Camacho MD Work Phone: [facility] 12-22-2021 09:15-0400 Diastolic blood pressure 73 mm[Hg] Alex Velasco MD Work Phone: [facility] 12-22-2021 09:15-0400 Heart rate 89 /min Alex Velasco MD Work Phone: [facility] 12-22-2021 09:15-0400 Respiratory rate 20 /min Alex Velasco MD Work Phone: [facility] 12-22-2021 09:15-0400 SaO2% (BldA) [Mass fraction] 100 % Alex Velasco MD Work Phone: [facility] 12-22-2021 09:15-0400 Systolic blood pressure 115 mm[Hg] Alex Velasco MD Work Phone: [facility] 12-22-2021 08:03-0400 Body height 137.2 cm Alex Velasco MD Work Phone: [facility] 12-22-2021 08:03-0400 Body temperature 97.7 [degF] Alex Velasco MD Work Phone: [facility] 11-17-2021 16:15-0400 Diastolic blood pressure 81 mm[Hg] Alex Velasco MD Work Phone: [facility] 11-17-2021 16:15-0400 Heart rate 120 /min Alex Velasco MD Work Phone: [facility] 11-17-2021 16:15-0400 Respiratory rate 27 /min Alex Velasco MD Work Phone: [facility] 11-17-2021 16:15-0400 SaO2% (BldA) [Mass fraction] 97 % Alex Velasco MD Work Phone: [facility] 11-17-2021 16:15-0400 Systolic blood pressure 157 mm[Hg] Alex Velasco MD Work Phone: [facility] 11-17-2021 13:39-0400 Body height 137.2 cm Alex Velasco MD Work Phone: [facility] 11-17-2021 13:39-0400 Body temperature 98.91 [degF] Alex Velasco MD Work Phone: [facility] 08-21-2021 12:38-0500 Body height 134.6 cm Donna O'Richard DIRECTOR OF [employer] Work Phone: [facility] 08-21-2021 12:38-0500 Body mass index (BMI) [Ratio] 21.28 kg/m2 Donna O'Richard DIRECTOR OF [employer] Work Phone: [facility] 08-21-2021 12:38-0500 Body weight 38.56 kg Donna O'Crestwood DIRECTOR OF [employer] Work Phone: [facility] 08-21-2021 12:38-0500 Diastolic blood pressure 68 mm[Hg] Donna O'Crestwood DIRECTOR OF [employer] Work Phone: [facility] 08-21-2021 12:38-0500 Heart rate 128 /min Donna O'Crestwood DIRECTOR OF [employer] Work Phone: [facility] 08-21-2021 12:38-0500 Systolic blood pressure 101 mm[Hg] Donna O'Richard DIRECTOR OF [employer] Work Phone: [facility] 06-18-2021 12:54-0400 Body temperature 98.8 [degF] Yany Wright DIRECTOR OF [employer] Work Phone: [facility] 06-18-2021 12:54-0400 Diastolic blood pressure 81 mm[Hg] Yany Wright DIRECTOR OF [employer] Work Phone: [facility] 06-18-2021 12:54-0400 Heart rate 110 /min Yany Wright [employer]OR OF [employer] Work Phone: [facility] 06-18-2021 12:54-0400 Respiratory rate 16 /min Yany Wright [employer] Work Phone: [facility] 06-18-2021 12:54-0400 Systolic blood pressure 137 mm[Hg] Yany Wright [employer] Work Phone: [facility] 05-01-2021 10:05-0400 Diastolic blood pressure 67 mm[Hg] Ruma Godwin DIRECTOR [employer] Work Phone: [facility] 05-01-2021 10:05-0400 Heart rate 103 /min Ruma Godwin [employer] Work Phone: [facility] 05-01-2021 10:05-0400 Systolic blood pressure 102 mm[Hg] Ruma Godwin [employer] Work Phone: [facility] 02-10-2021 14:30-0400 Body temperature 97.2 [degF] Werner Kaplan Jr., MD Work Phone: [facility] 02-10-2021 14:30-0400 Diastolic blood pressure 62 mm[Hg] Werner Kaplan Jr., MD Work Phone: [facility] 02-10-2021 14:30-0400 Heart rate 86 /min Werner Kaplan Jr., MD Work Phone: [facility] 02-10-2021 14:30-0400 Respiratory rate 16 /min Werner Kaplan Jr., MD Work Phone: [facility] 02-10-2021 14:30-0400 SaO2% (BldA) [Mass fraction] 97 % Werner Kaplan Jr., MD Work Phone: [facility] 02-10-2021 14:30-0400 Systolic blood pressure 91 mm[Hg] Werner Kaplan Jr., MD Work Phone: [facility] 02-04-2021 11:41-0400 Body height 134.6 cm Wilder Jump DO Work Phone: [facility] 02-04-2021 11:41-0400 Body mass index (BMI) [Ratio] 21.28 kg/m2 Wilder Jump DO Work Phone: [facility] 02-04-2021 11:41-0400 Body weight 38.56 kg Wilder Jump DO Work Phone: [facility] 02-04-2021 11:41-0400 Diastolic blood pressure 74 mm[Hg] Wilder Jump DO Work Phone: [facility] 02-04-2021 11:41-0400 Heart rate 63 /min Wilder Jump DO Work Phone: [facility] 02-04-2021 11:41-0400 Systolic blood pressure 111 mm[Hg] Wilder Jump DO Work Phone: [facility] 01-13-2021 14:46-0400 Body height 134.6 cm Werner Kaplan Jr., MD Work Phone: [facility] 01-13-2021 14:46-0400 Body mass index (BMI) [Ratio] 21.28 kg/m2 Werner Kaplan Jr., MD Work Phone: [facility] 01-13-2021 14:46-0400 Body temperature 98.1 [degF] Werner Kaplan Jr., MD Work Phone: [facility] 01-13-2021 14:46-0400 Body weight 38.56 kg Werner Kaplan Jr., MD Work Phone: [facility] 01-13-2021 14:46-0400 Diastolic blood pressure 88 mm[Hg] Werner Kaplan Jr., MD Work Phone: [facility] 01-13-2021 14:46-0400 Heart rate 106 /min Werner Kaplan Jr., MD Work Phone: [facility] 01-13-2021 14:46-0400 Respiratory rate 16 /min Werner Kaplan Jr., MD Work Phone: [facility] 01-13-2021 14:46-0400 SaO2% (BldA) [Mass fraction] 99 % Werner Kaplan Jr., MD Work Phone: [facility] Comment on above: 2 L O2 01-13-2021 14:46-0400 Systolic blood pressure 125 mm[Hg] Werner Kaplan Jr., MD Work Phone: [facility] 01-09-2021 09:33-0400 Body mass index (BMI) [Ratio] 21.28 kg/m2 Ruma Godwin DIRECTOR [employer] Work Phone: [facility] 01-09-2021 09:33-0400 Body weight 38.56 kg Ruma Godwin [employer] Work Phone: [facility] 01-09-2021 09:33-0400 Diastolic blood pressure 75 mm[Hg] Ruma Godwin DIRECTOR [employer] Work Phone: [facility] 01-09-2021 09:33-0400 Heart rate 111 /min Ruma Godwin [employer] Work Phone: [facility] 01-09-2021 09:33-0400 Systolic blood pressure 105 mm[Hg] Ruma Godwin DIRECT[employer] Work Phone: [facility] 11-27-2020 17:01-0400 BP Diastolic 75 mm[Hg] Rene [facility] 11-27-2020 17:01-0400 BP Systolic 108 mm[Hg] [facility] 11-27-2020 17:01-0400 Pulse (Heart Rate) 102 /min [facility] 11-27-2020 17:01-0400 Pulse Oximetry 99 % [facility] 11-27-2020 17:01-0400 Respiratory Rate 18 /min [facility] 11-27-2020 10:53-0400 BMI (Body Mass Index) 21.28 kg/m2 [facility] 11-27-2020 10:53-0400 Body Temperature 99.1 [degF] [facility] 11-27-2020 10:53-0400 Body weight 38.56 kg [facility] 11-27-2020 10:53-0400 Height 134.6 cm [facility] 09-25-2020 08:29-0500 Body Temperature 98.1 [degF] Curtis Martinez [facility] 09-25-2020 08:29-0500 BP Diastolic 58 mm[Hg] Curtis Juan [facility] 09-25-2020 08:29-0500 BP Systolic 92 mm[Hg] Curtis Martinez [facility] 09-25-2020 08:29-0500 Pulse (Heart Rate) 78 /min Curtis [facility] 09-25-2020 08:29-0500 Pulse Oximetry 94 % Curtis [facility] 09-25-2020 08:29-0500 Respiratory Rate 16 /min Curtis [facility] 09-23-2020 22:27-0500 BMI (Body Mass Index) 19.77 kg/m2 Curtis [facility] 09-23-2020 22:27-0500 Body weight 37.2 kg Curtis Juan [facility] 09-19-2020 09:33-0500 BP Diastolic 85 mm[Hg] Ruma [facility] 09-19-2020 09:33-0500 BP Systolic 123 mm[Hg] [facility] 09-19-2020 09:33-0500 Pulse (Heart Rate) 118 /min Ruma [facility] 08-13-2020 15:00-0500 Body Temperature 98.8 [degF] Jose Juan Rowland [facility] 08-13-2020 15:00-0500 BP Diastolic 68 mm[Hg] Jose Juan Rowland [facility] 08-13-2020 15:00-0500 BP Systolic 102 mm[Hg] Jose Juan Rowland [facility] 08-13-2020 15:00-0500 Pulse (Heart Rate) 101 /min Jose Juan Rowland [facility] 08-13-2020 15:00-0500 Pulse Oximetry 100 % Jose Juan Rowland [facility] 08-13-2020 15:00-0500 Respiratory Rate 18 /min Jose Juan Rowland [facility] 08-13-2020 10:16-0500 BMI (Body Mass Index) 19.29 kg/m2 Jose Juan Rowland [facility] 08-13-2020 10:16-0500 Body weight 36.29 kg Jose Juan Rowland [facility] 08-13-2020 10:16-0500 Height 137.2 cm Jose Juan Rowland [facility] 05-30-2020 09:57-0400 BP Diastolic 70 mm[Hg] Ruma Godwin [facility] 05-30-2020 09:57-0400 BP Systolic 112 mm[Hg] Ruma Godwin [facility] 05-30-2020 09:57-0400 Pulse (Heart Rate) 103 /min Ruma Godwin [facility] 03-22-2020 15:34-0400 Body Temperature 97.9 [degF] [facility] 15:34-0400 BP Diastolic 69 mm[Hg] [facility] 03-22-2020 15:34-0400 BP Systolic 94 mm[Hg] [facility] 03-22-2020 15:34-0400 Pulse (Heart Rate) 96 /min [facility] 03-22-2020 15:34-0400 Pulse Oximetry 100 % [facility] 03-22-2020 15:34-0400 Respiratory Rate 20 /min [facility] 03-21-2020 14:13-0400 BMI (Body Mass Index) 21.28 kg/m2 [facility] 03-21-2020 14:13-0400 Body weight 38.56 kg [facility] 03-21-2020 14:13-0400 Height 134.6 cm [facility] 02-14-2020 11:09-0400 Body Temperature 100.29 [degF] [facility]-14-2020 11:09-0400 BP Diastolic 76 mm[Hg] [facility] 02-14-2020 11:09-0400 BP Systolic 128 mm[Hg] [facility] 02-14-2020 11:09-0400 Pulse (Heart Rate) 125 /min [facility] 02-14-2020 11:09-0400 Pulse Oximetry 98 % [facility] 02-14-2020 08:50-0400 Respiratory Rate 16 /min [facility] 02-12-2020 12:54-0400 BMI (Body Mass Index) 20.77 kg/m2 [facility] 02-12-2020 12:54-0400 Body weight 37.65 kg [facility] 02-12-2020 12:54-0400 Height 134.6 cm Precious Herrera [facility] 02-08-2020 11:07-0400 BP Diastolic 63 mm[Hg] Ruma Godwin [facility] 02-08-2020 11:07-0400 BP Systolic 92 mm[Hg] Ruma Godwin [facility] 02-08-2020 11:07-0400 Pulse (Heart Rate) 73 /min Ruma Godwin [facility] 01-22-2020 15:36-0400 BP Diastolic 61 mm[Hg] [facility]-22-2020 15:36-0400 BP Systolic 100 mm[Hg] [facility] 01-22-2020 15:33-0400 BMI (Body Mass Index) 20.01 kg/m2 [facility] 01-22-2020 15:33-0400 Body Temperature 98.91 [degF] [facility] 01-22-2020 15:33-0400 Body weight 37.65 kg [place] [facility] 01-22-2020 15:33-0400 Height 137.2 [facility] 01-22-2020 15:33-0400 Pulse (Heart Rate) 104 /min [facility] 01-22-2020 15:33-0400 Pulse Oximetry 99 % [facility] 01-22-2020 15:33-0400 Respiratory Rate 18 /min [facility] [facility] 10-24-2019 11:43-0500 Body Temperature 98.29 [degF] [facility] 10-24-2019 11:43-0500 BP Diastolic 70 mm[Hg] [facility] 10-24-2019 11:43-0500 BP Systolic 105 mm[Hg] [facility] 10-24-2019 11:43-0500 Pulse (Heart Rate) 95 /min [facility] 10-24-2019 11:43-0500 Pulse Oximetry 99 % [facility] 10-24-2019 11:43-0500 Respiratory Rate 21 /min [facility] 10-21-2019 12:50-0500 BMI (Body Mass Index) 20.01 kg/m2 [facility] 10-21-2019 12:50-0500 Body weight 37.65 kg [facility] 10-21-2019 12:50-0500 Height 137.2 cm [facility] 10-19-2019 10:59-0500 BP Diastolic 62 mm[Hg] [facility] 10-19-2019 10:59-0500 BP Systolic 102 mm[Hg] [facility] 10-19-2019 10:59-0500 Pulse (Heart Rate) 106 /min [facility] 09-27-2019 08:45-0500 Pulse Oximetry 98 % Abrron [facility] 09-27-2019 08:01-0500 Body Temperature 98.1 [degF] Barronlio Moncada [facility] 09-27-2019 08:01-0500 BP Diastolic 59 mm[Hg] Barron [facility] 09-27-2019 08:01-0500 BP Systolic 89 mm[Hg] Barron [facility] 09-27-2019 08:01-0500 Pulse (Heart Rate) 88 /min Barron [facility] 09-27-2019 08:01-0500 Respiratory Rate 24 /min Barron [facility] 09-27-2019 06:00-0500 BMI (Body Mass Index) 24.28 kg/m2 Barron [facility] 09-27-2019 06:00-0500 Body weight 44 kg [facility] Comment on above: [facility] weight 09-20-2019 08:40-0500 Height 134.6 cm Barron [facility] 09-20-2019 08:02-0500 Respiratory rate 0 /min Barronlio Moncada [facility] 06-29-2019 11:22-0400 BMI (Body Mass Index) 23.03 kg/m2 [facility] 06-29-2019 11:22-0400 Body weight 41.73 kg [facility] 06-29-2019 11:22-0400 Height 134.6 cm [facility] 05-09-2019 10:04-0400 BMI (Body Mass Index) 23.03 kg/m2 Wilder Noland [facility] 05-09-2019 10:04-0400 Body weight 41.73 kg Wilder Noland [facility] 05-09-2019 10:04-0400 BP Diastolic 62 mm[Hg] Wilder Noland [facility] 05-09-2019 10:04-0400 BP Systolic 85 mm[Hg] Wilder Noland [facility] 05-09-2019 10:04-0400 Height 134.6 cm Wilder Noland [facility] 05-09-2019 10:04-0400 Pulse (Heart Rate) 106 /min Wilder Noland [facility] 05-04-2019 20:02-0400 BP Diastolic 68 mm[Hg] Kj Moncada [facility] 05-04-2019 20:02-0400 BP Systolic 116 mm[Hg] Kj Moncada [facility] 05-04-2019 20:02-0400 Pulse (Heart Rate) 108 /min Kj [facility] 05-04-2019 20:02-0400 Pulse Oximetry 99 % Kj [facility] 05-04-2019 20:02-0400 Respiratory Rate 16 /min Kjdean Moncada [facility] 05-04-2019 15:01-0400 BMI (Body Mass Index) 23.15 kg/m2 Kj [facility] 05-04-2019 15:01-0400 Body Temperature 98.49 [degF] Kj Moncada [facility] 05-04-2019 15:01-0400 Body weight 41.96 [address] [facility] 05-04-2019 15:01-0400 Height 134.6 cm K[address] [facility] 03-09-2019 10:32-0400 BP Diastolic 80 mm[Hg] [facility] 03-09-2019 10:32-0400 BP Systolic 121 mm[Hg] Ruma [facility] 03-09-2019 10:32-0400 Pulse (Heart Rate) 111 /min [facility] 02-01-2019 11:11-0400 BMI (Body Mass Index) 22.91 kg/m2 [facility] 02-01-2019 11:11-0400 Body weight 43.09 kg [facility] 02-01-2019 11:11-0400 BP Diastolic 70 mm[Hg] [facility] 02-01-2019 11:11-0400 BP Systolic 103 mm[Hg] [facility] 02-01-2019 11:11-0400 Pulse (Heart Rate) 116 /min [facility] Comment on above: This is baseline for pt. 01-12-2019 10:36-0400 Body Temperature 97.5 [degF] Stephy Cisse [facility] 01-12-2019 10:36-0400 BP Diastolic 53 mm[Hg] Stephy Cisse [facility] 01-12-2019 10:36-0400 BP Systolic 89 mm[Hg] Stephy Cisse [facility] 01-12-2019 10:36-0400 Height 137.2 cm Stephy Cisse [facility] 01-12-2019 10:36-0400 Pulse (Heart Rate) 102 /min Stephy Cisse [facility] 01-12-2019 10:36-0400 Pulse Oximetry 94 % Stephy Cisse [facility] 01-12-2019 10:36-0400 Respiratory Rate 18 /min Stephy Cisse [facility] 12-05-2018 09:35-0400 Respiratory Rate 18 /min Fernando [facility] 12-05-2018 08:03-0400 Body Temperature 98.8 [degF] [facility] 08:03-0400 BP Diastolic 64 mm[Hg] [facility] 12-05-2018 08:03-0400 BP Systolic 104 mm[Hg] [facility] 12-05-2018 08:03-0400 Pulse (Heart Rate) 99 /min [facility] 12-05-2018 08:03-0400 Pulse Oximetry 98 % [facility] 12-02-2018 10:23-0400 BMI (Body Mass Index) 21.69 kg/m2 [facility] 12-02-2018 10:23-0400 Height 137.2 cm [facility] 12-02-2018 10:23-0400 Weight 40.8 kg [facility] 11-28-2018 19:30-0400 Respiratory rate 0 /min [facility] 11-21-2018 10:16-0400 BMI (Body Mass Index) 22.53 kg/m2 [facility] 11-21-2018 10:16-0400 BP Diastolic 66 mm[Hg] [facility] 11-21-2018 10:16-0400 BP Systolic 96 mm[Hg] [facility] 11-21-2018 10:16-0400 Height 134.6 cm [facility] 11-21-2018 10:16-0400 Pulse (Heart Rate) 99 /min [facility] 11-21-2018 10:16-0400 Weight 40.82 kg Ruma Godwin [facility] 10-07-2018 20:28-0500 BP Diastolic 80 mm[Hg] Magalie [facility] 10-07-2018 20:28-0500 BP Systolic 119 mm[Hg] Magalie Kilpatrick [facility] 10-07-2018 20:28-0500 Pulse (Heart Rate) 84 /min Magalie Kilpatrick [facility] 10-07-2018 20:28-0500 Pulse Oximetry 93 % Magalie [facility] 10-07-2018 20:28-0500 Respiratory Rate 16 /min Magalie [facility] 10-07-2018 15:53-0500 BMI (Body Mass Index) 22.53 kg/m2 Magalie [facility] 10-07-2018 15:53-0500 Body Temperature 98.4 [degF] Magalie [facility] 10-07-2018 15:53-0500 Height 134.6 cm Magalie [facility] 10-07-2018 15:53-0500 Weight 40.82 kg Magalie [facility] 04-21-2018 09:52-0400 BP Diastolic 59 mm[Hg] [facility] 04-21-2018 09:52-0400 BP Systolic 93 mm[Hg] [facility] 04-21-2018 09:52-0400 Pulse (Heart Rate) 95 /min [facility] 01-19-2018 10:10-0400 BP Diastolic 69 mm[Hg] Yany [facility] 01-19-2018 10:10-0400 BP Systolic 102 mm[Hg] Yany [facility] 01-19-2018 10:10-0400 Pulse (Heart Rate) 94 /min Yany [facility] 01-12-2018 11:33-0400 Body Temperature 98.2 [degF] Stephy Jason [facility] 01-12-2018 11:33-0400 BP Diastolic 63 mm[Hg] Stephy Cisse [facility] 01-12-2018 11:33-0400 BP Systolic 88 mm[Hg] Stephy Jason [facility] 01-12-2018 11:33-0400 Pulse (Heart Rate) 90 /min Stephy Jason [facility] 01-12-2018 11:33-0400 Pulse Oximetry 98 % Stephy Jason [facility] 01-12-2018 11:33-0400 Respiratory Rate 16 /min Stephy Cisse [facility] 01-07-2018 10:39-0400 BMI (Body Mass Index) 21.7 kg/m2 Ruma Godwin [facility] 01-07-2018 10:39-0400 BP Diastolic 68 mm[Hg] Ruma Godwin [facility] 01-07-2018 10:39-0400 BP Systolic 103 mm[Hg] Ruma Godwin [facility] 01-07-2018 10:39-0400 Height 137.2 cm Ruma Godwin [facility] 01-07-2018 10:39-0400 Pulse (Heart Rate) 91 /min Ruma Godwin [facility] 01-07-2018 10:39-0400 Weight 40.82 kg Ruma Godwin [facility] 09-17-2017 09:57-0500 BMI (Body Mass Index) 21.7 kg/m2 Rumajamir Godwin [facility] Work Phone: 09-17-2017 09:57-0500 BP Diastolic 70 mm[Hg] Ruma Godwin [facility] Work Phone: 09-17-2017 09:57-0500 BP Systolic 102 mm[Hg] Ruma Godwin [facility] Work Phone: 09-17-2017 09:57-0500 Height 137.2 cm Ruma Godwin [facility] Work Phone: 09-17-2017 09:57-0500 Pulse (Heart Rate) 105 /min Ruma Godwin [facility] Work Phone: 09-17-2017 09:57-0500 Weight 40.82 kg Ruma Godwin [facility] Work Phone: 07-26-2017 13:48-0500 BP Diastolic 73 mm[Hg] Yany Wright [facility] Work Phone: 07-26-2017 13:48-0500 BP Systolic 106 mm[Hg] Yany Wright [facility] Work Phone: 07-26-2017 13:48-0500 Pulse (Heart Rate) 118 /min Yany Wright [facility] Work Phone: 07-26-2017 10:17-0500 BMI (Body Mass Index) 21.7 kg/m2 [facility] Work Phone: 07-26-2017 10:17-0500 BP Diastolic 58 mm[Hg] [facility] Work Phone: 07-26-2017 10:17-0500 BP Systolic 90 mm[Hg] [facility] Work Phone: 07-26-2017 10:17-0500 Height 137.2 cm [facility] Work Phone: 07-26-2017 10:17-0500 Pulse (Heart Rate) 112 /min [facility] Work Phone: 07-26-2017 10:17-0500 Weight 40.82 kg [facility] Work Phone: 07-15-2017 15:15-0500 Body Temperature 97.5 [degF] Stephy Cisse [facility] Work Phone: 07-15-2017 15:15-0500 BP Diastolic 73 mm[Hg] Stephy Cisse [facility] Work Phone: 07-15-2017 15:15-0500 BP Systolic 106 mm[Hg] Stephy Cisse [facility] Work Phone: 07-15-2017 15:15-0500 Pulse (Heart Rate) 67 /min Stephy Cisse [facility] Work Phone: 07-15-2017 15:15-0500 Pulse Oximetry 98 % Stephy Cisse [facility] Work Phone: 07-15-2017 15:15-0500 Respiratory Rate 24 /min Stephy Cisse [facility] Work Phone: 06-01-2017 10:57-0400 BMI (Body Mass Index) 22.53 kg/m2 Ruma Godwin [facility] Work Phone: 06-01-2017 10:57-0400 BP Diastolic 72 mm[Hg] Ruma Godwin [facility] Work Phone: 06-01-2017 10:57-0400 BP Systolic 101 mm[Hg] Ruma Godwin [facility] Work Phone: 06-01-2017 10:57-0400 Height 134.6 cm Ruma Godwin [facility] Work Phone: 06-01-2017 10:57-0400 Pulse (Heart Rate) 105 /min Ruma Godwin [facility] Work Phone: 06-01-2017 10:57-0400 Weight 40.82 kg Ruma Godwin [facility] Work Phone: 04-26-2017 13:43-0400 BP Diastolic 77 mm[Hg] Yany Wright [facility] Work Phone: 04-26-2017 13:43-0400 BP Systolic 108 mm[Hg] Yany Wright [facility] Work Phone: 04-26-2017 13:43-0400 Pulse (Heart Rate) 99 /min Yany Wright [facility] Work Phone: 04-14-2017 15:23-0400 Body Temperature 97.39 [degF] Stephy Cisse [facility] Work Phone: 04-14-2017 15:23-0400 BP Diastolic 72 mm[Hg] Stephy Cisse [facility] Work Phone: 04-14-2017 15:23-0400 BP Systolic 107 mm[Hg] Stephy Jason [facility] Work Phone: 04-14-2017 15:23-0400 Pulse (Heart Rate) 85 /min Stephy Cisse [facility] Work Phone: 04-14-2017 15:23-0400 Pulse Oximetry 96 % Stephy Jason [facility] Work Phone: 04-14-2017 15:23-0400 Respiratory Rate 18 /min Stephy Cisse [facility] Work Phone: Encounters Encounter Date Encounter Type Care Provider Facility Start: 05-21-2025 ambulatory Shima Gamble ty:[facility] Start: 05-17-2025 ambulatory Colette Gomez ity:[facility] Start: 05-17-2025 ambulatory Colette Gomez ity:[facility] Start: 05-14-2025 End: 05-14-[address] Shima Krishnamurthy MD -Medical Out Work Phone: Start: 05-14-2025 End: 05-14-[address] Colette Goode MD Work Phone: -Medical Out Start: 05-10-2025 ambulatory Colette Gomez [facility]y:[facility] Start: 05-10-2025 Non-patient / Non-visit Onelia QUINONES -[facility] Start: 05-10-2025 Registered Recurring Jaimee CASIANO -[facility] [place] Work Phone: Start: 05-07-2025 End: 05-07-[address] Shima Krishnamurthy MD -Medical Out Work Phone: Start: 05-07-2025 End: 05-07-[address] Colette Goode MD Work Phone: -Medical Out Start: 05-03-2025 ambulatory Uziel Gamble ty:[facility] Start: 05-03-2025 Non-patient / Non-visit Dr. Margie Inman MD -[facility] Work Phone: Start: 05-03-2025 Registered Recurring Jaimee CASIANO -Wound [facility] Work Phone: Start: 05-01-2025 End: 05-01-[address] Colette Goode MD Work Phone: -Radiology [facility] Start: 05-01-2025 End: 05-01-[address] Shima Krishnamurthy MD -Radiology [facility] Work Phone: Start: 05-01-2025 End: 05-01-2025 ambulatory Colette Goode Facility:[facility] Start: 04-23-2025 End: 04-23-2025 Orders Only Ruma Godwin [employer] Work Phone: [facility] Comment on above: Spastic cerebral pal sy (HCC) Start: 04-19-2025 ambulatory Colette Goode Facil ity:[facility] Start: 04-19-2025 Non-patient / Non-visit Onelia [facility]INONES [facility] Start: 04-19-2025 End: 04-29-[address] Colette Goode MD Work Phone: -Wound Healing [facility] Start: 04-19-2025 End: 04-29-2025 Discharged Recurring Jaimee Marshall COMPREHENSIVE OPHTHALMOLOGIST-C -[facility] Work Phone: Start: 2025 ambulatory Colette Goode Facil ity:[facility] Start: 2025 Non-patient / Non-visit Onelia Gaspar [facility] Start: 04-11-2025 ambulatory MARIELLE MADELEINE ANUSHKA DUQUE [facility] Ambulatory Start: 04-08-2025 End: 04-09-2025 Refill Yany Garciates DIRECTOR OF GLOBAL SALES Work Phone: [facility] Comment on above: Intractable symptoma tic generalized epilepsy (HCC) Start: 04-06-2025 End: 04-06-2025 Emergency department patient visit Dr. Colette Goode MD Work Phone: -Emergency Department Work Phone: Start: 04-05-2025 ambulatory Colette Goode Facil ity:[facility] Start: 04-05-2025 Non-patient / Non-visit Onelia QUINONES [facility] Start: 04-05-2025 End: 04-05-[address] Colette Goode MD Work Phone: -Laboratory Start: 04-05-2025 End: 04-05-2025 Patient encounter procedure Onelia Andradehn PA -Laboratory Work Phone: Start: 04-05-2025 Registered Recurring Jaimee Marshall NP-C [facility] Work Phone: Start: 04-05-2025 End: 04-05-2025 ambulatory Onelia Gaspar Facility:[facility] Start: 03-29-2025 ambulatory Colette Gomez ity:[facility] Start: 03-29-2025 Non-patient / Non-visit Onelia Gaspar [facility] Start: 03-29-2025 End: 03-29-[address] Colette Goode MD Work Phone: [facility] Start: 03-29-2025 End: 03-29-2025 Discharged Recurring Jaimee Marshall NP-C -[facility] Work Phone: Start: 03-22-2025 ambulatory Colette Gomez ity:[facility] Start: 03-22-2025 Non-patient / Non-visit Onelia Gaspar [facility] Start: 03-14-2025 Non-patient / Non-visit Jaimee roy NP-C -[facility] Start: 03-10-2025 ambulatory DAVID Eli MD~[id number] Facility:[facility] Start: 03-06-2025 End: 05-09-2025 ambulatory MARGA GRESHAM STUDIO SALES ASSOCIATE~[id number] Facility:[facility] Start: 02-28-2025 ambulatory LALI ESCALERA MD~[id number] Facility:[facility] Start: 02-13-2025 End: 02-17-2025 ambulatory CELENA FIELDS [facility] Start: 02-13-2025 End: 02-13-2025 Patient encounter procedure Celena Fields MD Work Phone: [facility] Comment on above: Spasticity [R25.2] ( Primary Dx); 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HCC) Start: 01-31-2025 End: 02-18-2025 Refill Boubacar Mclean MA [facility] Comment on above: Intractable symptoma tic generalized epilepsy (HCC) Start: 01-29-2025 End: 01-29-2025 ambulatory DAVID HERNANDEZ MD~[id number] Facility:[facility] Start: 01-11-2025 End: 01-11-2025 ambulatory LALI ESCALERA MD~[id number] Facility:[facility] Start: 01-04-2025 End: 01-06-[address] MARIELLE DUQUE MD Facility:[facility] Start: 12-21-2024 End: 12-21-2024 ambulatory LALI ESCALERA MD~[id number] Facility:[facility] Start: 12-14-2024 End: 12-14-2024 Office outpatient visit 25 minutes Ruma Godwin DIRECTOR OF GLOBAL SALES Work Phone: [facility] Comment on above: Spasticity [R25.2] ( Primary Dx); 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HCC) Start: 12-14-2024 End: 12-18-2024 [facility] Start: 11-07-2024 End: 11-07-2024 Patient encounter procedure Celena Fields MD Work Phone: [facility] Comment on above: Spasticity (Primary Dx) Start: 11-07-2024 End: 11-11-2024 [facility] Start: 11-06-2024 End: 11-06-2024 Office outpatient visit 25 minutes Yany Kiya Adriana DIRECTOR OF GLOBAL SALES Work Phone: [facility] Comment on above: 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); Seizure disorder (HCC); Acute encephalopathy; 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HCC); Muscle spasticity; Hypoxia Start: 11-06-2024 End: 11-10-2024 ambulatory YANY KIYA WRIGHT [facility] Start: 08-14-2024 End: 08-14-2024 Office outpatient visit 25 minutes Yany Kiya Wright DIRECTOR OF GLOBAL SALES Work Phone: [facility] Comment on above: 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); 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HCC); Acute on chronic respiratory failure with hypoxia and hypercapnia (HCC) Start: 08-14-2024 End: 08-14-2024 ambulatory YANY WRIGHT [facility] Start: 08-07-2024 End: 08-07-2024 Coordination of care plan Ellyn Arreola LPN [facility] Start: 08-04-2024 End: 08-04-2024 Refill Yany Wright DIRECTOR OF GLOBAL SALES Work Phone: [facility] Comment on above: Seizure disorder (HC C) Start: 08-01-2024 End: 08-02-2024 Refill Carola Paul MA [facility] Comment on above: 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) Start: 07-26-2024 End: 07-26-2024 Coordination of care plan Ellyn Arreola LPN [facility] Start: 07-15-2024 End: 07-19-2024 Evaluation and management of inpatient ABELARDO ZHOU MD~[id number] Facility:[facility] Start: 07-06-2024 End: 07-06-2024 Emergency department patient visit DR~[id number] KI CORMIER MD Facility:[facility] Start: 06-14-2024 End: 06-14-2024 [facility] Start: 05-26-2024 End: 05-26-2024 Coordination of care plan Ellyn Arreola LPN [facility] Start: 04-21-2024 End: 05-16-2024 Evaluation and management of inpatient RENETTA BLOOD SEDA [facility] Start: 04-17-2024 End: 04-17-2024 Coordination of care plan Ellyn Arreola LPN [facility] Start: 04-05-2024 End: 04-05-2024 Refill Elroy Lopez RN [facility] Comment on above: Spasticity (Primary Dx); Pain Start: 04-04-2024 End: 04-04-2024 Office outpatient visit 40 minutes Yany Wright DIRECTOR OF GLOBAL SALES Work Phone: [facility] Comment on above: 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); Seizure disorder (HCC); 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HCC); Encephalopathy; Hypoxia Start: 03-27-2024 End: 03-27-2024 Refill Physician [facility] Comment on above: Spastic cerebral pal sy (HCC) Start: 03-22-2024 End: 03-22-2024 Office outpatient visit 25 minutes Stephy Cisse MD Work Phone: [facility] Comment on above: Restrictive lung dis ease due to kyphoscoliosis (Primary Dx); Chronic pulmonary aspiration, sequela Start: 03-14-2024 End: 03-14-2024 Patient encounter procedure Ruma Godwin DIRECTOR OF GLOBAL SALES Work Phone: [facility] Comment on above: Spasticity (Primary Dx); 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HCC) Start: 03-14-2024 End: 03-14-2024 ambulatory [facility] Start: 02-25-2024 End: 03-12-2024 Refill Yany Wright DIRECTOR OF GLOBAL SALES Work Phone: [facility] Start: 02-21-2024 End: 02-21-2024 Refill Janet Obrien RN [facility] Comment on above: Intractable symptoma tic generalized epilepsy (HCC); 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) Start: 01-18-2024 End: 01-18-2024 Office outpatient visit 25 minutes Richar Talbert MD Work Phone: [facility] Comment on above: 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); Mood disturbance Start: 01-13-2024 End: 01-17-2024 ambulatory [facility] Start: 01-13-2024 End: 01-13-2024 ambulatory Ruma Godwin DIRECTOR OF GLOBAL SALES Work Phone: [facility] Comment on above: Muscle spasticity (P rimary Dx); Spasticity Start: 01-11-2024 Documentation procedure [facility] Comment on above: Occupational Therapy ; Neuro Start: 01-07-2024 Documentation procedure [facility] Start: 01-06-2024 Refill Yany Kiya Yate s DIRECTOR OF GLOBAL SALES Work Phone: [facility] Comment on above: Intractable symptoma tic generalized epilepsy (HCC) Start: 12-28-2023 End: 01-01-2024 ambulatory [facility] Start: 12-28-2023 End: 12-28-2023 ambulatory Ruma Godwin DIRECTOR OF GLOBAL SALES Work Phone: [facility] Comment on above: Spasticity; 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HCC) Start: 12-27-2023 Refill Yany Kiya Yate s DIRECTOR OF GLOBAL SALES Work Phone: [facility] Start: 12-24-2023 Refill Yany Kiya Yate s DIRECTOR OF GLOBAL SALES Work Phone: [facility] Start: 12-13-2023 End: 12-13-2023 Office outpatient visit 25 minutes Ruma Godwin DIRECTOR OF GLOBAL SALES Work Phone: [facility] Comment on above: Spasticity (Primary Dx); 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HCC) Start: 11-26-2023 End: 11-26-2023 Office outpatient new 45 minutes Stephy Cisse MD Work Phone: [facility] Comment on above: Restrictive lung dis ease due to scoliosis (Primary Dx); Chronic pulmonary aspiration, sequela Start: 11-10-2023 End: 11-10-2023 Patient encounter procedure Celena Fields MD Work Phone: [facility] Comment on above: Spasticity (Primary Dx) Start: 09-20-2023 Documentation procedure Thea gardner MA [facility] Start: 09-13-2023 End: 09-13-2023 Office outpatient visit 40 minutes Yany Kiya Wright DIRECTOR OF GLOBAL SALES Work Phone: [facility] Comment on above: 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); Intractable symptomatic generalized epilepsy (HCC); 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HCC); Hypoxia Start: 08-29-2023 Refill Yany Kiya Yate s DIRECTOR OF GLOBAL SALES Work Phone: [facility] Start: 08-26-2023 Refill Madisyn sierra DIRECTOR OF GLOBAL SALES Work Phone: [facility] Comment on above: Spastic cerebral pal sy (HCC) Start: 08-20-2023 Refill Yany Kiya Yate s DIRECTOR OF GLOBAL SALES Work Phone: [facility] Comment on above: 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) Start: 08-02-2023 Refill Yany Kiya Yate s DIRECTOR OF GLOBAL SALES Work Phone: [facility] Start: 07-30-2023 Refill Yany Kiya Yate s DIRECTOR OF GLOBAL SALES Work Phone: [facility] Comment on above: Intractable symptoma tic generalized epilepsy (HCC) Start: 06-21-2023 Refill Yany Kiya Yate s DIRECTOR OF GLOBAL SALES Work Phone: [facility] Start: 06-12-2023 Refill Yany Kiya Yate s DIRECTOR OF GLOBAL SALES Work Phone: [facility] Start: 06-01-2023 End: 06-01-2023 Patient encounter procedure Celena Fields MD Work Phone: [facility] Comment on above: Spasticity (Primary Dx); 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HCC) Start: 04-21-2023 End: 04-21-2023 Office outpatient visit 15 minutes Celena Fields MD Work Phone: [facility] Comment on above: Cervical dystonia Start: 02-19-2023 Refill Yany Kiya Yate s DIRECTOR OF GLOBAL SALES Work Phone: [facility] Comment on above: Intractable symptoma tic generalized epilepsy (HCC) Start: 02-02-2023 End: 02-02-2023 Patient encounter procedure Celena Fields MD Work Phone: [facility] Comment on above: Spasticity (Primary Dx); Cerebral palsy, unspecified type (HCC) Start: 01-18-2023 Orders Only Yany Hills s DIRECTOR OF GLOBAL SALES Work Phone: [facility] Start: 12-10-2022 Refill Chacorta Ansari MA [facility] Start: 12-01-2022 End: 12-01-2022 Office outpatient visit 40 minutes Celena Fields MD Work Phone: [facility] Comment on above: Spasticity (Primary Dx); Cerebral palsy, unspecified type (HCC) Start: 11-03-2022 End: 11-09-2022 Patient encounter procedure Celena Fields MD Work Phone: [facility] Comment on above: Spastic cerebral pal sy (HCC) (Primary Dx); Spasm of muscle Start: 10-13-2022 End: 10-13-2022 Office outpatient visit 40 minutes Celena Fields MD Work Phone: [facility] Comment on above: Spasticity (Primary Dx); Cerebral palsy, unspecified type (HCC); Cervical dystonia Start: 09-22-2022 End: 09-22-2022 Office outpatient visit 40 minutes Augusto Moncada MD Work Phone: [facility] Comment on above: Spasticity (Primary Dx); Cerebral palsy, unspecified type (HCC) Start: 08-31-2022 Refill Yany Hills s DIRECTOR OF GLOBAL SALES Work Phone: [facility] Comment on above: Intractable symptoma tic generalized epilepsy (HCC) Start: 08-03-2022 End: 08-03-2022 Clinical Support Elodia Riojas RN [facility] Start: 07-25-2022 End: 07-25-2022 Home visit Kenyetta Domingo RN [facility] Comment on above: SN HH OASIS DISCHARG E Start: 07-24-2022 Home visit Christine Marroquin RN [facility] Comment on above: CASE COMMUNICATION Start: 07-22-2022 End: 07-22-2022 Home visit Christine Marroquin RN [facility] Comment on above: SN HH OASIS START OF CARE Start: 07-21-2022 Documentation procedure Elodia eli RN [facility] Start: 07-20-2022 End: 07-25-2022 ambulatory MARIELLE DUQUE [facility] Start: 07-15-2022 Refill Falguni Curry RN [facility] Comment on above: Spastic cerebral pal sy (HCC) Start: 07-14-2022 End: 07-21-2022 Evaluation and management of inpatient Fernando Devin Camacho MD Work Phone: [facility] Integrated Stroke Unit [facility] Start: 02-16-2022 Refill Chacorta Ansari MA [facility] Start: 12-22-2021 End: 12-22-2021 ambulatory ALEX VELASCO Facility:[facility] Start: 12-22-2021 End: 12-22-2021 Subsequent hospital visit by physician Alex Velasco MD Work Phone: [facility] Comment on above: PEG tube malfunction Start: 11-27-2021 Refill Brandi Dominguez MA [facility] Comment on above: Intractable symptoma tic generalized epilepsy (HCC) Start: 11-17-2021 End: 11-17-2021 ambulatory ALEX VELASCO Facility:[facility] Start: 11-17-2021 End: 11-17-2021 Subsequent hospital visit by physician Alex Velasco MD Work Phone: [facility] Comment on above: PEG tube malfunction Start: 10-31-2021 Refill Yany Kiya Yate s DIRECTOR OF GLOBAL SALES Work Phone: [facility] Start: 10-17-2021 Refill Yany Kiya Yate s DIRECTOR OF GLOBAL SALES Work Phone: [facility] Start: 02-17-2022 Release of Information Provide r Not In System [facility] Start: 10-16-2021 [facility] Provider Not I n System [facility] Start: 08-21-2021 End: 08-21-2021 Office outpatient visit 25 minutes Donna Brush DIRECTOR OF GLOBAL SALES Work Phone: [facility] Comment on above: Spasticity (Primary Dx); Cerebral palsy, unspecified type (HCC) Start: 08-06-2021 Refill Amaris Dunne RN [facility] Comment on above: 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) Start: 08-05-2021 Documentation procedure Amaris C Deshaun colunga RN [facility] Start: 08-01-2021 ambulatory YANY R WRIGHT Facility[facility] Start: 07-31-2021 Refill Yany Kiya Yate s DIRECTOR OF GLOBAL SALES Work Phone: [facility] Start: 07-08-2021 ambulatory COLETTE GOODE [facility] Start: 07-08-2021 Documentation procedure Amaris C Deshaun colunga RN [facility] Start: 07-02-2021 Documentation procedure Yany R sen Wright DIRECTOR OF GLOBAL SALES Work Phone: [facility] Start: 06-20-2021 End: 06-20-2021 Office outpatient new 45 minutes Cynthia Chan DIRECTOR OF GLOBAL SALES Work Phone: [facility] Comment on above: Cerebral palsy, unsp ecified type (HCC); Stage II pressure ulcer of right buttock (HCC) Start: 06-18-2021 End: 06-18-2021 Office outpatient visit 25 minutes Yany Kiya Wright DIRECTOR OF GLOBAL SALES Work Phone: [facility] Comment on above: 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); Intractable symptomatic generalized epilepsy (HCC); Gastrostomy tube dysfunction (HCC); S/P percutaneous endoscopic gastrostomy (PEG) tube placement (HCC); Pain around percutaneous endoscopic gastrostomy (PEG) tube site, initial encounter; Spasticity; Hypoxia Start: 05-15-2021 Refill Julia Deshpande [facility] Comment on above: Intractable symptoma tic generalized epilepsy (HCC) Start: 05-07-2021 Refill Adrienne Anderson [facility] Comment on above: 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 Neuro[facility] Comment on above: Intractable symptoma tic generalized epilepsy (HCC) Start: 04-14-2021 Transcribe Orders Cynthia Hernandez Ma DIRECTOR OF GLOBAL SALES Work Phone: [facility] Comment on above: Cerebral palsy, unsp ecified type (HCC) (Primary Dx); Stage II pressure ulcer of right buttock (HCC) Start: 02-27-2021 End: 02-27-2021 Office outpatient new 30 minutes Wilder Noland MD Work Phone: [facility] Comment on above: Pressure injury of s acral region, stage 3 (HCC) (Primary Dx) Start: 02-10-2021 End: 02-10-2021 ambulatory COLETTE GOODE [facility] Start: 02-10-2021 End: 02-10-2021 Office outpatient visit 25 minutes Werner Kaplan MD Work Phone: [facility] Comment on above: Pressure injury of r ight ischium, stage 3 (HCC) (Primary Dx); Other cerebral palsy (HCC); Other urinary incontinence; Incontinence of feces, unspecified fecal incontinence type; Encounter to discuss treatment options Start: 02-04-2021 End: 02-09-2021 Office outpatient new 30 minutes Werner Kaplan MD Work Phone: [facility] Comment on above: Pressure injury of r ight ischium, stage 3 (HCC) (Primary Dx) Start: 01-15-2021 End: 01-15-2021 Refill Stephy Cisse MD Work Phone: [facility] Comment on above: Restrictive lung dis ease due to kyphoscoliosis; Aspiration, chronic pulmonary, initial encounter Start: 01-13-2021 End: 01-13-2021 ambulatory MARIELLETRESA DUQUE [facility] Start: 01-13-2021 End: 01-13-2021 Office outpatient new 45 minutes Werner Kaplan MD Work Phone: [facility] Comment on above: Other cerebral palsy (HCC) (Primary Dx); Pressure injury of right ischium, stage 3 (HCC); Other urinary incontinence; Incontinence of feces, unspecified fecal incontinence type Start: 01-09-2021 End: 01-09-2021 Office outpatient visit 25 minutes Ruma Godwin CNP Work Phone: [facility] Comment on above: Spasticity (Primary Dx) Start: 12-23-2020 ambulatory COLETTE Gomez [facility] Start: 11-27-2020 End: 11-27-2020 Emergency department patient visit Rene Rice Gume Work Phone: [facility] Emergency Department Start: 10-24-2020 End: 10-24-2020 Orders Only Esther Young Work Phone: [facility] Start: 10-02-2020 End: 10-02-2020 Phys/qhp telephone evaluation 21-30 min Yany Wright Work Phone: [facility] Comment on above: 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); Intractable symptomatic generalized epilepsy (HCC); COVID-19; Muscle spasticity; Hypoxia Start: 09-23-2020 End: 09-25-2020 Evaluation and management of inpatient Curtis Martinez Work Phone: [facility] Med Surg Orthopedics Comment on above: Congenital quadriple jorge (HCC) (Primary Dx); Spasticity; 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HCC); COVID-19 virus infection; Chronic respiratory failure with hypoxia (HCC) Start: 09-19-2020 End: 09-19-2020 Office outpatient visit 25 minutes Ruma Godwin Work Phone: [facility] Comment on above: Spasticity (Primary Dx); 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HCC) Start: 08-13-2020 End: 08-13-2020 Emergency department patient visit Jose Juan Rowland Work Phone: [facility] Medical Unit 3 Comment on above: Pressure injury of r ight buttock, stage 3 (HCC) (Primary Dx); Spastic quadriplegic cerebral palsy (HCC); Chronic respiratory failure with hypoxia (HCC); Chronic indwelling Sage catheter; Generalized epilepsy (HCC) Start: 06-17-2020 Refill Yany urban DIRECTOR OF GLOBAL SALES Work Phone: [facility] Start: 05-30-2020 End: 05-30-2020 Office outpatient visit 25 minutes Ruma Godwin Work Phone: [facility] Comment on above: Spasticity (Primary Dx); 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HCC) Start: 03-21-2020 End: 03-22-2020 Evaluation and management of inpatient Narcisaruthie Dominguezvira Lockwood Work Phone: [facility] Comprehensive Medical Unit 1 Comment on above: Acute UTI (Primary D x); Wound infection; Indwelling catheter present on admission; Cerebral palsy, unspecified type (HCC); Dysphagia, unspecified type Start: 02-12-2020 End: 02-14-2020 Evaluation and management of inpatient Precious Herrera Work Phone: [facility] Medical Unit 3 Comment on above: Sepsis, due to unspe cified organism, unspecified whether acute organ dysfunction present (HCC) (Primary Dx); Aspiration pneumonia, unspecified aspiration pneumonia type, unspecified laterality, unspecified part of lung (HCC); Wound infection; Sage catheter in place; Acute UTI Start: 02-08-2020 End: 02-08-2020 Office outpatient visit 25 minutes Ruma Godwin Work Phone: [facility] Comment on above: Spasticity (Primary Dx); 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HCC) Start: 01-22-2020 End: 01-22-2020 Emergency department patient visit Savannah Carvajalmiranda Work Phone: [facility] Emergency Department Comment on above: Occlusion of periphe rally inserted central catheter (PICC) line, initial encounter (HCC) (Primary Dx) Start: 10-21-2019 End: 10-24-2019 Evaluation and management of inpatient José Orozco Medhat Work Phone: [facility] Medical Intermediate Comment on above: Severe sepsis (HCC) (Primary Dx); Acute UTI; Dehydration; Cerebral palsy, unspecified type (HCC); Hypernatremia Start: 10-19-2019 End: 10-19-2019 Office outpatient visit 25 minutes Ruma Godwin Work Phone: [facility], Neuroscience Comment on above: Spasticity (Primary Dx) Start: 10-17-2019 End: 10-17-2019 Documentation procedure Ericka Schaefer [facility] Start: 09-19-2019 End: 09-27-2019 Evaluation and management of inpatient Barron Gipsonmontserrat Moncada Work Phone: [facility] Medical Intermediate Comment on above: Sepsis, due to unspe cified organism, unspecified whether acute organ dysfunction present (HCC) (Primary Dx); Community acquired pneumonia, unspecified laterality; Decubitus ulcer of ischial area, right, stage IV (HCC); Acute on chronic respiratory failure with hypoxia and hypercapnia (HCC); 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HCC) Start: 06-29-2019 End: 06-29-2019 Office outpatient visit 25 minutes Ruma Godwin Work Phone: [facility] Neuro[facility] Comment on above: Spasticity (Primary Dx) Start: 06-01-2019 End: 06-01-2019 Office outpatient visit 15 minutes Wilder Noland Work Phone: [facility] Comment on above: Pressure injury of s acral region, stage 3 (HCC) (Primary Dx) Start: 05-22-2019 End: 05-22-2019 Subsequent hospital visit by physician Colette Goode Work Phone: [facility] Nuclear Medicine Comment on above: Arrived Start: 05-22-2019 End: 05-22-2019 Subsequent hospital visit by physician Colette Goode Work Phone: [facility] Nuclear Medicine Comment on above: Wound healing, delay ed Start: 05-09-2019 End: 05-09-2019 Office consultation new/estab patient 30 min Wilder Noland Work Phone: [facility] Comment on above: Wound healing, delay ed Start: 05-04-2019 End: 05-04-2019 Emergency department patient visit Kj Moncada Work Phone: [facility] Emergency Department Comment on above: Pressure injury of s kin, unspecified injury stage, unspecified location (Primary Dx); Cerebral palsy, unspecified type (HCC); Buttock wound, right, initial encounter Start: 03-10-2019 End: 03-10-2019 Documentation procedure Amaris Dunne [facility] Start: 03-09-2019 End: 03-09-2019 Office outpatient visit 25 minutes Ruma Godwin Work Phone: [facility] Comment on above: Spasticity (Primary Dx); Neuropathic pain Start: 02-01-2019 End: 02-01-2019 Office outpatient visit 25 minutes Yany Wright Work Phone: [facility] Comment on above: 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); Intractable symptomatic generalized epilepsy (HCC); Medication management; Spasticity; Hypoxia Start: 01-12-2019 End: 01-12-2019 Office outpatient visit 15 minutes Stephy Cisse Work Phone: [facility] Comment on above: Chronic respiratory failure with hypoxia and hypercapnia (HCC) (Primary Dx); Restrictive lung disease due to kyphoscoliosis; Chronic pulmonary aspiration, sequela Start: 11-28-2018 End: 12-05-2018 Evaluation and management of inpatient Fernando Mcmullen Work Phone: [facility] Medical Unit 1 Comment on above: Sepsis, due to unspe cified organism (HCC) (Primary Dx); Hypernatremia; Acute UTI; Pressure injury of skin of sacral region, unspecified injury stage; Decubitus ulcer of ischial area, right, stage IV (HCC) Start: 11-21-2018 End: 11-21-2018 Office outpatient visit 40 minutes Ruma Godwin Work Phone: [facility] Comment on above: Spasticity (Primary Dx); Other cerebral palsy (HCC) Start: 10-07-2018 End: 10-07-2018 Emergency department patient visit Magalie Yatessharmaine Kilpatrick Work Phone: [facility] Emergency Department Comment on above: Acute sinusitis, rec urrence not specified, unspecified location (Primary Dx) Start: 08-12-2018 End: 08-15-2018 Patient encounter procedure DEBORA HART [facility] [place] Start: 05-06-2018 End: 05-06-2018 Patient encounter Fidencio Art [facility] Start: 05-06-2018 Refill Yany urban CNP Work Phone: [facility] Neuro[facility] Comment on above: Intractable symptoma tic generalized epilepsy (HCC) Start: 04-21-2018 End: 04-21-2018 Office outpatient visit 25 minutes Ruma Godwin Work Phone: [facility] Start: 02-03-2018 Ambulatory [facility] Start: 01-20-2018 Ambulatory [facility] Start: 01-19-2018 End: 01-19-2018 Office/outpatient visit, est, level 4 Yany Wright Work Phone: [facility] Start: 01-12-2018 End: 01-12-2018 Office/outpatient visit, est, level 3 Stephy Cisse Work Phone: [facility] Start: 01-07-2018 End: 01-07-2018 Office/outpatient visit, est, level 4 Ruma Lucioadriannataly Work Phone: [facility] Start: 09-17-2017 Office/outpatient vi sit, est, level 4 Ruma Lucioadriannataly Work Phone: [facility] Start: 08-02-2017 End: 08-02-2017 Ambulatory Nikhil [facility] Work Phone: [facility] Cardiac Non-Invasive Start: 07-26-2017 Office outpatient vi sit 25 minutes Yany Kiya Wright Work Phone: [facility] Start: 07-26-2017 End: 07-26-2017 Ambulatory Nikhil Leon [facility] Work Phone: [facility] Start: 07-26-2017 Office outpatient ne w 30 minutes Stephy Cisse Work Phone: [facility] Start: 07-15-2017 Office outpatient vi sit 15 minutes Stephy Cisse Work Phone: [facility] Start: 06-01-2017 End: 06-01-2017 Office outpatient visit 25 minutes Ruma Lucioadriannataly Work Phone: [facility] Comment on above: Spastic cerebral pal sy (HCC);Spasticity Start: 04-27-2017 Ambulatory Vika Addison [facility] Start: 04-26-2017 End: 04-26-2017 Office outpatient visit 15 minutes Yany Kiya Wright Work Phone: [facility] Comment on above: Spastic cerebral pal sy (HCC) (Primary Dx);Intractable symptomatic generalized epilepsy (HCC);Hypoxia Start: 04-22-2017 End: 04-22-2017 Emergency department patient visit Olivia Fay [facility] Start: 04-14-2017 Office/outpatient vi sit, new, level 5 Stephy Tatiana Cisse Work Phone: [facility] Procedures Date Procedure Procedure Detail Performing Clinician Start: 04-06-2025 Computed tomography of abdomen and pelvis with intravenous contrast Dr. Colette Goode MD Work Phone: Start: 03-29-[address] Colette Grier MD Work Phone: Start: 03-29-[address] Colette eli MD Work Phone: Start: 03-29-2025 End: 03-29-2025 Microbial culture, routine Dr. Colette bingham MD Work Phone: Start: 03-14-[address] Colette Grier MD Work Phone: Start: 03-14-[address] Colette eli MD Work Phone: Start: 03-14-2025 End: 03-14-2025 Microbial culture, routine Dr. Colette bingham MD Work Phone: Start: 03-14-2025 Plain x-ray of pelvis and lower extremity Dr. Colette Goode MD Work Phone: Start: 03-14-[address] Colette Goode MD Work Phone: Start: 03-14-2025 Total iron binding capacity measurement Dr. Colette Goode MD Work Phone: Start: 07-19-2022 Electrolyte panel Stone Faria MD Work Phone: Start: 07-17-2022 Glucose measurement [facility] Work Phone: Start: 07-17-2022 Glucose measurement [facility] Work Phone: Start: 07-17-2022 Assay of magnesium Stone Faria MD Work Phone: Start: 07-17-2022 Glucose measurement [facility] Work Phone: Start: 07-17-2022 Adult depression screening assessment Elodia Riojas RN Start: 07-16-2022 Glucose measurement [facility] Work Phone: Start: 07-16-2022 Glucose measurement [facility] Work Phone: Start: 07-16-2022 Electrocardiogram [facility] Work Phone: Start: 07-16-2022 End: 07-16-2022 Culture bacterial blood aerobic w/id isolates Kemal Fuchs DO Work Phone: Start: 07-16-2022 Ct abdomen & pelvis w/contrast material Zeke Turk [employer] Work Phone: Start: 07-16-2022 Glucose measurement [facility] Work Phone: Start: 07-16-2022 End: 07-16-2022 Assay of magnesium Stone Faria MD Work Phone: Start: 07-16-2022 Radiologic exam chest single view Ricardo Valentin [employer] Work Phone: Start: 07-16-2022 Glucose measurement [facility] Work Phone: Start: 07-16-2022 Glucose measurement [facility] Work Phone: Start: 07-15-2022 Glucose measurement [facility] Work Phone: Start: 07-15-2022 Glucose measurement [facility] Work Phone: Start: 07-15-2022 Radiologic exam abdomen 1 view Kemal Fuc hs DO Work Phone: Start: 07-15-2022 XR OR FLUOROSCOPY TIME Peter Portillo MD Work Phone: Start: 07-15-2022 End: 07-15-2022 Cul bact xcpt urine blood/stool aerobic isol Peter Portillo MD Work Phone: Start: 07-15-2022 End: 07-15-2022 INTRATHECAL PUMP REMOVAL Peter Potrillo MD Work Phone: Start: 07-15-2022 detection examination [facility] Work Phone: Start: 07-15-2022 Blood typing serologic abo Fredo denis [employer] Work Phone: Start: 07-15-2022 VALLE TOP Triage Protocol Emergency MD Start: 07-15-2022 LAVENDER TOP Triage Protocol Emergency MD Start: 07-15-2022 LIGHT BLUE TOP Triage Protocol Emergency MD Start: 07-15-2022 LIGHT GREEN TOP Triage Protocol Emergency MD Start: 07-15-2022 MINT GREEN TOP Triage Protocol Emergency MD Start: 07-15-2022 Prothrombin time Peter Portillo MD Work Phone: Start: 07-15-2022 RAINBOW DRAW Triage Protocol Emergency MD Start: 07-15-2022 Ecg routine ecg w/least 12 lds trcg only w/o i&r Stone Faria MD Work Phone: Start: 07-15-2022 Radex spine lumbosacral 2/3 views Jennif dhara Baig [facility] Work Phone: Start: 07-15-2022 End: 07-15-2022 Basic metabolic panel calcium total Magalie Ross MD Work Phone: Start: 07-15-2022 C-reactive protein Adrienne Baig [facility] Work Phone: Start: 12-22-2021 Esophagogastroduodenoscopy transoral diagnostic Eduardo Moreno MD Work Phone: Start: 11-17-2021 End: 11-17-2021 Egd percutaneous placement gastrostomy tube Alex Velasco MD Work Phone: Start: 11-17-2021 Esophagogastroduodenoscopy transoral diagnostic Eduardo Moreno MD Work Phone: Start: 02-18-2021 Debridement subcutaneous tissue 20 sq cm/< Werner Kaplan MD Work Phone: Start: 11-27-2020 End: 11-27-2020 Bacteria identified in Blood by Culture Rene Dunaway Work Phone: Start: 11-27-2020 Basic metabolic 1998 panel - Serum or Plasma Naomi Lake Work Phone: Start: 11-27-2020 C reactive protein [Mass/volume] in Serum or Plasma Naomi Lake Work Phone: Start: 11-27-2020 Choriogonadotropin.beta subunit ( test) [Presence] in Serum or Plasma Naomi Lake Work Phone: Start: 11-27-2020 Complete blood count with white cell differential, automated Naomi Lake Work Phone: Start: 11-27-2020 Complete blood count with white cell differential, manual Naomi Lake Work Phone: Start: 11-27-2020 Erythrocyte sedimentation rate by Westergren method Naomi Lake Work Phone: Start: 11-27-2020 VALLE TOP Rene Dunaway Work Phone: Start: 11-27-2020 LIGHT BLUE TOP Rene Dunaway Work Phone: Start: 11-27-2020 LIGHT GREEN TOP Rene Dunaway Work Phone: Start: 11-27-2020 PINK TOP Rene Dunaway Work Phone: Start: 11-27-2020 RAINBOW DRAW Rene Dunaway Work Phone: Start: 09-24-2020 Basic metabolic 1999 panel - Serum or Plasma Kendal Chaudhari Work Phone: Start: 09-24-2020 Complete blood count (hemogram) panel - Blood by Automated count Kendal Chaudhari Work Phone: Start: 09-23-2020 Basic metabolic 1999 panel - Serum or Plasma Linda Greene Work Phone: Start: 09-23-2020 Complete blood count with white cell differential, automated Linda Greene Work Phone: Start: 09-23-2020 Complete blood count with white cell differential, manual Linda Greene Work Phone: Start: 09-23-2020 VALLE TOP Anuj Grayson Work Phone: Start: 09-23-2020 LIGHT BLUE TOP Anuj Grayson Work Phone: Start: 09-23-2020 LIGHT GREEN TOP Anuj Grayson Work Phone: Start: 09-23-2020 PINK TOP Anuj Grayson Work Phone: Start: 09-23-2020 RAINBOW DRAW Anuj Grayson Work Phone: Start: 09-23-2020 Radiologic exam chest single view Linda Greene Work Phone: Start: 09-23-2020 COVID-19/INFLUENZA A,B MOLECULAR Linda Greene Work Phone: Start: 08-13-2020 COVID-19/INFLUENZA A,B MOLECULAR Jose Juanbruno Rowland Work Phone: Start: 08-13-2020 Standard chest X-ray Angeles Reyes Work Phone: Start: 08-13-2020 Bacteria identified in Blood by Culture Angeles 4meeejesse Work Phone: Start: 08-13-2020 Complete blood count (hemogram) panel - Blood by Automated count Angeles 4meeejesse Work Phone: Start: 08-13-2020 Comprehensive metabolic 2000 panel - Serum or Plasma Angeles 4meeejesse Work Phone: Start: 08-13-2020 Lactate [Moles/volume] in Serum or Plasma [employer] Work Phone: Start: 08-13-2020 LAVENDER TOP Jose Juan mariano Work Phone: Start: 08-13-2020 LIGHT BLUE TOP Jose Juan mariano Work Phone: Start: 08-13-2020 LIGHT GREEN TOP Jose Juan mariano Work Phone: Start: 08-13-2020 PINK TOP Jose Juan mariano Work Phone: Start: 08-13-2020 RAINBOW DRAW Jose Juan mariano Work Phone: Start: 03-22-2020 Basic metabolic 1999 panel - Serum or Plasma Khadar Yoo Work Phone: Start: 03-21-2020 COVID-19, MOLECULAR Emilio Maldonado Work Phone: Start: 03-21-2020 Ct abdomen & pelvis w/contrast material Emilio Zuluagay Work Phone: Start: 03-21-2020 Radiologic exam chest single view Emilio Zuluagay Work Phone: Start: 03-21-2020 Urinalysis Emilio Maldonado Work Phone: Start: 03-21-2020 Bacteria identified in Unspecified specimen by Aerobe culture Emilio Zuluagay Work Phone: Start: 03-21-2020 End: 03-21-2020 Bacteria identified in Blood by Culture Emilio Zuluagay Work Phone: Start: 03-21-2020 Basic metabolic 1998 panel - Serum or Plasma Emilio Maldonado Work Phone: Start: 03-21-2020 Choriogonadotropin.beta subunit ( test) [Presence] in Serum or Plasma Emilio Zuluagay Work Phone: Start: 03-21-2020 Complete blood count with white cell differential, automated Emiliorhea Maldonado Work Phone: Start: 03-21-2020 Complete blood count with white cell differential, manual Emiliorhea Maldonado Work Phone: Start: 03-21-2020 VALLE TOP Narcisa Lockwood Work Phone: Start: 03-21-2020 Lactate [Moles/volume] in Serum or Plasma Emilio Maldonado Work Phone: Start: 03-21-2020 LAVENDER TOP Narcisa Lockwood Work Phone: Start: 03-21-2020 LIGHT BLUE TOP Narcisa Lockwood Work Phone: Start: 03-21-2020 LIGHT GREEN TOP Narcisa Dickersons Work Phone: Start: 03-21-2020 MINT GREEN TOP Narcisa Lockwood Work Phone: Start: 03-21-2020 PINK TOP Narcisa Lockwood Work Phone: Start: 03-21-2020 RAINBOW DRAW Narcisa Dumont [employer] Work Phone: Start: 02-14-2020 Basic metabolic 2000 panel - Serum or Plasma Mikala Daloul Work Phone: Start: 02-14-2020 Complete blood count with white cell differential, automated Mikala Daloul Work Phone: Start: 02-14-2020 Complete blood count with white cell differential, manual Mikala Daloul Work Phone: Start: 02-13-2020 Basic metabolic 2000 panel - Serum or Plasma Mikala Daloul Work Phone: Start: 02-13-2020 Complete blood count with white cell differential, automated Mikala Daloul Work Phone: Start: 02-13-2020 Complete blood count with white cell differential, manual Mikala Daloul Work Phone: Start: 02-13-2020 Lactate [Moles/volume] in Serum or Plasma Mikala Daloul Work Phone: Start: 02-12-2020 Lactate [Moles/volume] in Serum or Plasma Mikala Daloul Work Phone: Start: 02-12-2020 COVID-19, MOLECULAR Precious Herrera Work Phone: Start: 02-12-2020 12 lead ECG Precious Herrera Work Phone: Start: 02-12-2020 Radiologic exam chest single view Malachi Ybarra Work Phone: Start: 02-12-2020 Urinalysis Kj Ybarra Work Phone: Start: 02-12-2020 Bacteria identified in Blood by Culture Mikala Arnold Work Phone: Start: 02-12-2020 Basic metabolic 1998 panel - Serum or Plasma Kj Ybarra Work Phone: Start: 02-12-2020 Complete blood count with white cell differential, automated Kj Ybarra Work Phone: Start: 02-12-2020 Complete blood count with white cell differential, manual Kj Ybarra Work Phone: Start: 02-12-2020 VALLE TOP Precious Herrera Work Phone: Start: 02-12-2020 Hepatic function 2000 panel - Serum or Plasma Precious Herrera Work Phone: Start: 02-12-2020 Lactate [Moles/volume] in Serum or Plasma Kj Ybarra Work Phone: Start: 02-12-2020 LIGHT BLUE TOP Precious Herrera Work Phone: Start: 02-12-2020 LIGHT GREEN TOP Precious Herrera Work Phone: Start: 02-12-2020 Lipase [Enzymatic activity/volume] in Serum or Plasma Precious Herrera Work Phone: Start: 02-12-2020 PINK TOP Precious Herrera Work Phone: Start: 02-12-2020 RAINBOW DRAW Precious Herrera Work Phone: Start: 01-22-2020 Radiologic exam chest single view Elodia Garces Work Phone: Start: 10-24-2019 Basic metabolic 1999 panel - Serum or Plasma Baldemar Villa Work Phone: Start: 10-23-2019 Complete blood count (hemogram) panel - Blood by Automated count Huber Priest Work Phone: Start: 10-23-2019 Comprehensive metabolic 1999 panel - Serum or Plasma Huber Sena armani Work Phone: Start: 10-22-2019 Methicillin resistant Staphylococcus aureus (MRSA) DNA [Presence] in Unspecified specimen by CAMILO with probe detection Beronica Haynesiman Work Phone: Start: 10-22-2019 Complete blood count (hemogram) panel - Blood by Automated count Beronica Haynesiman Work Phone: Start: 10-22-2019 Basic metabolic 1999 panel - Serum or Plasma Beronica Menademetrius Work Phone: Start: 10-21-2019 Basic metabolic 1997 panel - Serum or Plasma Beronica Torres Work Phone: Start: 10-21-2019 Assay of lactate Christine Shah Work Phone: Start: 10-21-2019 Influenza virus A AND B antigen assay José Meléndez Work Phone: Start: 10-21-2019 Radiologic exam chest single view José Meléndez Work Phone: Start: 10-21-2019 Bacteria identified in Unspecified specimen by Aerobe culture Christine Shah Work Phone: Start: 10-21-2019 Urinalysis Christine Shah Work Phone: Start: 10-21-2019 Basic metabolic 1999 panel - Serum or Plasma Christine Shah Work Phone: Start: 10-21-2019 Hepatic function 1999 panel - Serum or Plasma Christine Shah Work Phone: Start: 10-21-2019 LIGHT BLUE TOP Triage Protocol Emergency Start: 10-21-2019 LIGHT GREEN TOP Triage Protocol Emergency Start: 10-21-2019 PINK TOP Triage Protocol Emergency Start: 10-21-2019 RAINBOW DRAW Triage Protocol Emergency Start: 10-21-2019 End: 10-21-2019 Bacteria identified in Blood by Culture Christine Shah Work Phone: Start: 10-21-2019 Complete blood count with white cell differential, automated Christine Shah Work Phone: Start: 10-21-2019 Complete blood count with white cell differential, manual Christine Shah Work Phone: Start: 10-21-2019 Lactate [Moles/volume] in Serum or Plasma Christine Shah Work Phone: Start: 09-24-2019 Potassium [Moles/volume] in Serum or Plasma Janna Llanes Work Phone: Start: 09-22-2019 Basic metabolic 2000 panel - Serum or Plasma Ida Petersen Work Phone: Start: 09-22-2019 Complete blood count (hemogram) panel - Blood by Automated count Ida Petersen Work Phone: Start: 09-21-2019 Bacteria identified in Sputum by Aerobe culture Shannan Viera Work Phone: Start: 09-21-2019 Bacteria identified in Unspecified specimen by Aerobe culture Fidencio Ye Work Phone: Start: 09-21-2019 Complete blood count (hemogram) panel - Blood by Automated count Veronica Morley Work Phone: Start: 09-21-2019 Comprehensive metabolic 2000 panel - Serum or Plasma Veronica Morley Work Phone: Start: 09-20-2019 Lamotrigine measurement Fidencio Ye Work Phone: Start: 09-20-2019 Legionella antigen assay Shannan massey Work Phone: Start: 09-20-2019 Streptococcus pneumoniae antigen assay Shannan Viera Work Phone: Start: 09-20-2019 Radiography of [id number] Fidencio Ye Work Phone: Start: 09-20-2019 Methicillin resistant Staphylococcus aureus (MRSA) DNA [Presence] in Unspecified specimen by CAMILO with probe detection Fidencio Ye Work Phone: Start: 09-20-2019 Respiratory pathogens DNA and RNA panel - Nasopharynx by CAMILO with non-probe detection Fidencio Ye Work Phone: Start: 09-20-2019 Methicillin resistant Staphylococcus aureus [Presence] in Unspecified specimen by Organism specific culture Shannan Viera Work Phone: Start: 09-20-2019 Cul bact xcpt urine blood/stool aerobic isol Shannan Viera Work Phone: Start: 09-20-2019 Influenza virus A AND B antigen assay Fidencio Ye Work Phone: Start: 09-20-2019 Glucose [Mass/volume] in Blood [facility] Work Phone: Start: 09-20-2019 Evaluation of arterial blood gas studies [facility] Work Phone: Start: 09-20-2019 End: 09-20-2019 Bacteria identified in Blood by Culture Shannan Viera Work Phone: Start: 09-20-2019 Basic metabolic 2000 panel - Serum or Plasma Shannan Viera Work Phone: Start: 09-20-2019 Complete blood count with white cell differential, automated lauraNarusana Annma Work Phone: Start: 09-20-2019 Complete blood count with white cell differential, manual mirian Viera Work Phone: Start: 09-20-2019 Magnesium [Mass/volume] in Serum or Plasma mirian Annma Work Phone: Start: 09-20-2019 Bacteria identified in Unspecified specimen by Aerobe culture Barron Moncada Work Phone: Start: 09-20-2019 Urinalysis Barron Moncada Work Phone: Start: 09-19-2019 Radiologic exam chest single view Tg Fuentes Work Phone: Start: 09-19-2019 End: 09-19-2019 Bacteria identified in Blood by Culture Barron Moncada Work Phone: Start: 09-19-2019 Complete blood count with white cell differential, automated Jamir Fuentes Work Phone: Start: 09-19-2019 Complete blood count with white cell differential, manual Jamir Debora Fuentes Work Phone: Start: 09-19-2019 Lactate [Moles/volume] in Serum or Plasma Jamir Bray Alfredo Work Phone: Start: 09-19-2019 LIGHT GREEN TOP Barron Moncada Work Phone: Start: 09-19-2019 PINK TOP Barron Moncada Work Phone: Start: 09-19-2019 Basic metabolic 2000 panel - Serum or Plasma Jamir Fuentes Work Phone: Start: 09-19-2019 LIGHT BLUE TOP Barron Moncada Work Phone: Start: 09-19-2019 RAINBOW DRAW Barron Moncada Work Phone: Start: 05-22-2019 Radionuclide white blood cell imaging study Wilder Noland Work Phone: Start: 05-04-2019 Radiologic exam chest single view Elizabeth Valle Work Phone: Start: 05-04-2019 PINK TOP Kj Moncada Work Phone: Start: 05-04-2019 RAINBOW DRAW Kj Moncada Work Phone: Start: 05-04-2019 PINK TOP Triage Protocol Emergency Start: 05-04-2019 Basic metabolic 2000 panel - Serum or Plasma Marisel Valdiviaomis Work Phone: Start: 05-04-2019 Complete blood count with white cell differential, automated Marisel Valdiviaomis Work Phone: Start: 05-04-2019 Complete blood count with white cell differential, manual Marisel Valdiviaomis Work Phone: Start: 05-04-2019 VALLE TOP Triage Protocol Emergency Start: 05-04-2019 LIGHT BLUE TOP Triage Protocol Emergency Start: 05-04-2019 LIGHT GREEN TOP Triage Protocol Emergency Start: 05-04-2019 RAINBOW DRAW Triage Protocol Emergency Start: 12-05-2018 Basic metabolic 2000 panel - Serum or Plasma Onelia H Gase Wernekinck Work Phone: Start: 12-05-2018 Complete blood count with white cell differential, automated Onelia H Gase Wernekinck Work Phone: Start: 12-05-2018 Complete blood count with white cell differential, manual Onelia H Gase Werne[place]ck Work Phone: Start: 12-04-2018 Basic metabolic 2000 panel - Serum or Plasma Onelia H Gase Wernekinck Work Phone: Start: 12-04-2018 Complete blood count with white cell differential, automated Onelia H Gase Wernekinck Work Phone: Start: 12-04-2018 Complete blood count with white cell differential, manual Onelia H Gase [employer] Work Phone: Start: 12-03-2018 Basic metabolic 2000 panel - Serum or Plasma Onelia H Gase [employer] Work Phone: Start: 12-03-2018 Complete blood count with white cell differential, automated Onelia H Gase [employer] Work Phone: Start: 12-03-2018 Complete blood count with white cell differential, manual Onelia H Gase [employer] Work Phone: Start: 12-02-2018 Procedure on tissue specimen Rad Noel Work Phone: Start: 12-02-2018 End: 12-02-2018 INCISION AND DRAINAGE LOWER EXTREMITY Rad Luque Work Phone: Start: 12-02-2018 Choriogonadotropin ( test) [Presence] in Urine Katlin Cowan Work Phone: Start: 12-02-2018 Basic metabolic 2000 panel - Serum or Plasma Onelia H [employer] Isaiah Work Phone: Start: 12-02-2018 Complete blood count with white cell differential, automated [employer] Work Phone: Start: 12-02-2018 Complete blood count with white cell differential, manual Onelia Sincere [employer] Work Phone: Start: 12-02-2018 Blood type and Indirect antibody screen panel - Blood Peter Perez Work Phone: Start: 12-02-2018 12 lead ECG Richar Brandt Work Phone: Start: 12-01-2018 Glucose [Mass/volume] in Blood Fidencio Velasco panda Brar Work Phone: Start: 12-01-2018 Basic metabolic 2000 panel - Serum or Plasma Stephen Jarrell Work Phone: Start: 12-01-2018 Complete blood count with white cell differential, automated Stephen Jarrell Work Phone: Start: 12-01-2018 Complete blood count with white cell differential, manual Stephen Jarrell Work Phone: Start: 12-01-2018 Glucose [Mass/volume] in Blood Fidencio mosqueda Maykel Work Phone: Start: 12-01-2018 Blood group typing Fidencio Ritter Maykel Work Phone: Start: 12-01-2018 Glucose [Mass/volume] in Blood Fidencio mosqueda Maykel Work Phone: Start: 11-30-2018 Glucose [Mass/volume] in Blood Fidencio Brar Work Phone: Start: 11-30-2018 Lamotrigine measurement Stephen Jarrell Work Phone: Start: 11-30-2018 Vancomycin [Mass/volume] in Serum or Plasma --trough Mignon Cordova [employer] Work Phone: Start: 11-30-2018 Glucose [Mass/volume] in Blood Fidencio Brar Work Phone: Start: 11-30-2018 End: 12-01-2018 Basic metabolic 2000 panel - Serum or Plasma Richar Brandt Work Phone: Start: 11-30-2018 Complete blood count (hemogram) panel - Blood by Automated count Onelia [employer] Work Phone: Start: 11-30-2018 Glucose [Mass/volume] in Blood Fidencio Brar Work Phone: Start: 11-30-2018 Basic metabolic 2000 panel - Serum or Plasma Richar Brandt Work Phone: Start: 11-29-2018 Basic metabolic 2000 panel - Serum or Plasma Richar Brandt Work Phone: Start: 11-29-2018 Basic metabolic 2000 panel - Serum or Plasma Richar Brandt Work Phone: Start: 11-29-2018 C reactive protein [Mass/volume] in Serum or Plasma Onelia Post [employer] Work Phone: Start: 11-29-2018 Complete blood count (hemogram) panel - Blood by Automated count Richar Brandt Work Phone: Start: 11-29-2018 Erythrocyte sedimentation rate by Westergren method Onelia Post [employer] Work Phone: Start: 11-29-2018 Bacteria identified in Unspecified specimen by Aerobe culture Richar Brandt Work Phone: Start: 11-29-2018 NASAL CANNULA OXYGEN Richar Brandt Work Phone: Start: 11-29-2018 Assay of lactate Provider Not In System Start: 11-29-2018 LAVENDER TOP Fernando Mcmullen Work Phone: Start: 11-29-2018 MINT GREEN TOP Fernando Mcmullen Work Phone: Start: 11-29-2018 RAINBOW DRAW Fernando Mcmullen Work Phone: Start: 11-29-2018 CT of neck, thorax, abdomen and pelvis Fernando Mcmullen Work Phone: Start: 11-29-2018 Bacteria identified in Blood by Culture Lizett Cm Work Phone: Start: 11-29-2018 Influenza virus A AND B antigen assay Fernando Mcmullen Work Phone: Start: 11-29-2018 Urinalysis Lizett vaca Work Phone: Start: 11-28-2018 Radiologic exam chest single view Lizett Cm Work Phone: Start: 11-28-2018 Gases blood ph direct robin xcpt pulse oximitry Provider Not In System Start: 11-28-2018 Cyanocobalamin vitamin b-12 Stephen Jarrell Work Phone: Start: 11-28-2018 LIGHT BLUE TOP Triage Protocol Emergency Start: 11-28-2018 LIGHT GREEN TOP Triage Protocol Emergency Start: 11-28-2018 PINK TOP Triage Protocol Emergency Start: 11-28-2018 RAINBOW DRAW Triage Protocol Emergency Start: 11-28-2018 Bacteria identified in Blood by Culture Lizett Cm Work Phone: Start: 11-28-2018 Basic metabolic 2000 panel - Serum or Plasma Lizett Cm Work Phone: Start: 11-28-2018 Complete blood count with white cell differential, automated Lizett Cm Work Phone: Start: 11-28-2018 Complete blood count with white cell differential, manual Lizett Cm Work Phone: Start: 11-28-2018 Hepatic function 2000 panel - Serum or Plasma Lizett Cm Work Phone: Start: 11-28-2018 Lactate [Moles/volume] in Serum or Plasma Lizett Cm Work Phone: Start: 10-07-2018 Urinalysis Linda Padgett Jc Work Phone: Start: 10-07-2018 Radiography of svhqma-tpvfrk-gklhvee Magalie Kilpatrick Work Phone: Start: 10-07-2018 Radiologic exam chest single view Perry Will Work Phone: Start: 10-07-2018 Basic metabolic 2000 panel - Serum or Plasma Linda Lorin Greene Work Phone: Start: 10-07-2018 Complete blood count with white cell differential, automated Linda Padgett Jc Work Phone: Start: 10-07-2018 Complete blood count with white cell differential, manual Linda Padgett Jc Work Phone: Start: 10-07-2018 Hepatic function 2000 panel - Serum or Plasma Linda Waldropalcira Greene Work Phone: Start: 10-07-2018 Lactate [Moles/volume] in Serum or Plasma Linda Greene Work Phone: Start: 10-07-2018 LIGHT BLUE TOP Magalie Kilpatrick Work Phone: Start: 10-07-2018 LIGHT GREEN TOP Magalie Kilpatrick Work Phone: Start: 10-07-2018 Lipase [Enzymatic activity/volume] in Serum or Plasma Linda Greene Work Phone: Start: 10-07-2018 PINK TOP Magalie Kilpatrick Work Phone: Start: 10-07-2018 BROOKLYN Kilpatrick Work Phone: Start: 10-07-2018 CT of head without contrast Linda palm Work Phone: Start: 08-02-2017 End: 08-02-2017 [facility]om-mode compl spec&colr d Nikhil Leon [facility] Work Phone: Start: 2014 H/O: gastrostomy S/P percutaneous endoscopic gastrostomy (PEG) tube placement Ruma Godwin DIRECTOR [employer] SALES Work Phone: H/O: gastrostomy S/P percutaneou s endoscopic gastrostomy (PEG) tube placement ([facility]) Yany Wright DIRECTOR OF [employer] SAL[employer] Work Phone: Plan of Treatment Date Care Activity Detail Author Start: 05-23-2025 End: 05-23-2025 Patient encounter procedure 05/23/2025 12:30 PM EDT Procedure visit [facility] [address] [place] [address] Celena Fields MD [address] [facility] [place] [address] [facility] Start: 05-15-2025 End: 05-15-2025 Telemedicine consultation with patient 05/15/2025 2:00 PM EDT Telemedicine [facility] [address] [place] [address] Yany Wright CNP [address] [place] [address] [facility] Start: 05-10-2025 End: 05-10-2025 Telemedicine consultation with patient [facility] Start: 05-08-2025 Depression screening using PHQ-9 (Patient Health Questionnaire 9) score Depression Screening/Follow-Up (PHQ-2/9) [facility] Start: 04-30-2025 Influenza vaccination Influenza Vaccine (#1) [facility] Start: 04-06-2025 [facility] Start: 03-29-2025 Source specific culture [facility] Start: 03-29-2025 Anaerobic Culture Anaerobic Culture [facility] Start: 03-29-2025 Microscopic observation [Identifier] in Unspecified specimen by Gram stain [facility] Start: 03-29-2025 Wound Culture Wound Culture [facility] Start: 02-13-2025 End: 02-13-2025 Patient encounter procedure 02/13/2025 2:00 PM EDT Procedure visit [facility] [address] [place] [address] Celena Fields MD [address] [place] [address] Discharge Disposition: Home [facility] Start: 12-14-2024 End: 12-14-2024 Patient encounter procedure 12/14/2024 2:00 PM EDT Office Visit [facility] [address] [place] [address] Ruma Godwin, DIRECTOR [employer]ES [address] [place] [address] Discharge Disposition: Home [facility] Start: 11-07-2024 End: 11-07-2024 Patient encounter procedure 11/07/2024 11:00 AM EDT Procedure visit [facility] [address] [place] [address] Celena Fields MD [address] [place] [address] Discharge Disposition: Home [facility] Start: 11-06-2024 End: 11-06-2024 Telemedicine consultation with patient 11/06/2024 2:40 PM EDT Telemedicine [facility] [address] [place] [id number] Yany Wright, DIRECTOR [employer]ES [address] [place] [address] [facility] Start: 09-19-2024 End: 09-19-2024 Patient encounter procedure 09/19/2024 2:00 PM EST Procedure visit [facility] [address] [place] [address] Celena Fields MD [address] [place] [address] Discharge Disposition: Home [facility] Start: 08-14-2024 End: 08-14-2024 Patient encounter procedure [facility] Start: 06-14-2024 End: 06-14-2024 Patient encounter procedure 06/14/2024 1:00 PM EDT Procedure visit [facility] Neurology [address] [place] [id number] Celena Fields MD [address] [place] [address] [facility] Start: 06-13-2024 End: 06-13-2024 Patient encounter procedure 06/13/2024 9:00 AM EDT Procedure visit [facility]science [address] [place] [address] Celena Fields MD [address] [place] [address] Discharge Disposition: Home [facility] Start: 04-30-2024 COVID-19 Vaccine ( season) COVID-19 Vaccine () [facility] Start: 04-30-2024 Influenza vaccination [facility] Start: 04-04-2024 End: 04-04-2024 Patient encounter procedure 04/04/2024 2:00 PM EDT Office Visit [facility] [address] [place] [address] Yany Wright, DIRECTOR [employer]ES [address] [place] [address] [facility] Start: 03-31-2024 End: 03-31-2024 Patient encounter procedure 03/31/2024 9:15 AM EDT Office Visit [facility] [address] [place] [address] Ruma Godwin, DIRECTOR [employer]ES [address] [place] [address] Discharge Disposition: Home [facility] Start: 03-22-2024 End: 03-22-2024 Patient encounter procedure 03/22/2024 1:00 PM EDT Office Visit [facility] [address] [place] [address] [address] [place] [address] Stephy Cisse MD [address] [place] [address] [address] [place] [address] [facility] Start: 03-14-2024 End: 03-14-2024 Patient encounter procedure 03/14/2024 8:00 AM EDT Procedure visit [facility] [address] [place] [address] Ruma Godwin, DIRECTOR [employer] [address] [place] [address] Celena Fields MD [address] [place] [address] Discharge Disposition: Home [facility] Start: 02-08-2024 End: 02-08-2024 Patient encounter procedure 02/08/2024 11:30 AM EDT Procedure visit [facility] [address] [place] [address] Celena Fields MD [address] [place] [address] Discharge Disposition: Home [facility] Start: 01-18-2024 End: 01-18-2024 Patient encounter procedure 01/18/2024 1:25 PM EDT Office Visit [facility] [address] [place] [address] Richar Talbert MD [address] [place] [address] [facility] Start: 01-13-2024 End: 01-13-2024 ambulatory 01/13/2024 3:30 PM EDT Treatment [facility] [address] [place] [phone] Ruma Godwin, DIRECTOR [employer]ES [address] [place] [address] Mignon Jordan OT Discharge Disposition: Home [facility] Start: 01-11-2024 End: 01-11-2024 ambulatory 01/11/2024 2:00 PM EDT Treatment [facility] [address] [place] [phone] Ruma Godwin, DIRECT[employer] [address] [place] [address] Mignon Jordan OT [facility] Start: 01-07-2024 End: 01-07-2024 ambulatory 01/07/2024 3:30 PM EDT Treatment [facility] [address] [place] [address] Ruma Godwin, [employer] [address] [place] [address] Mignon Jordan OT Discharge Disposition: Home [facility] Start: 12-28-2023 End: 12-28-2023 ambulatory 12/28/2023 12:30 PM EDT Evaluation [facility] [address] [place] [address] Ruma Godwin, [employer] [address] [place] [address] Mignon Jordan OT Discharge Disposition: Home [facility] Start: 11-26-2023 End: 11-26-2023 Patient encounter procedure 11/26/2023 3:00 PM EDT Office Visit [facility] [address] [place] [address] [place] [address] Stephy Cisse MD [address] [place] [address] [place] [address] [facility] Start: 09-30-2023 End: 09-30-2023 Patient encounter procedure 09/30/2023 10:30 AM EST Procedure visit [facility] [address] [place] [address] Guerda Ngo MD [address] [place] [address] Discharge Disposition: Home [facility] Start: 09-16-2023 End: 09-16-2023 Patient encounter procedure 09/16/2023 10:00 AM EST Procedure visit [facility] [address] [place] [address] Guerda Ngo MD [address] [place] [address] Discharge Disposition: Home [facility] Start: 09-13-2023 End: 09-13-2023 Patient encounter procedure 09/13/2023 11:00 AM EST Office Visit [facility] [address] [place] [address] Yany Wright, DIRECT[employer] [address] [place] [address] [facility] Start: 09-09-2023 End: 09-09-2023 Patient encounter procedure 09/09/2023 10:45 AM EST Office Visit [facility] [address] [place] [address] Ruma Godwin, DIRECT[employer] [address] [place] [address] Discharge Disposition: Home [facility] Start: 08-31-2023 End: 08-31-2023 Patient encounter procedure 08/31/2023 10:20 AM EST Office Visit [facility] [address] [place] [address] Yany Wright, DIRECT[employer] [address] [place] [address] [facility] Start: 07-21-2023 End: 07-21-2023 Patient encounter procedure 07/21/2023 1:00 PM EST Office Visit [facility] [address] [place] [address] Yany Wright, DIRECT[employer] [address] [place] [address] [facility] Start: 07-17-2023 Depression screening using PHQ-9 (Patient Health Questionnaire 9) score [facility] Start: 06-29-2023 End: 06-29-2023 Patient encounter procedure 06/29/2023 2:40 PM EDT Office Visit [facility] [address] [place] [address] Yany Wright, DIRECTOR [employer] [address] [place] [address] [facility] Start: 05-18-2023 End: 05-18-2023 Patient encounter procedure 05/18/2023 1:30 PM EDT Procedure visit [facility] [address] [place] [address] Celena Fields MD [address] [place] [address] Discharge Disposition: Home [facility] Start: 04-30-2023 COVID-19 Vaccine ( season) COVID-19 Vaccine ( season) [facility] Start: 04-30-2023 Influenza vaccination [facility] Start: 04-21-2023 End: 08-23-2023 Patient encounter procedure 04/21/2023 10:30 AM EDT Office Visit [facility] [address] [place] [address] Celena Fields MD [address] [place] [address] Sunita Mejia MD [address] [place] [address] Discharge Disposition: Home [facility] Start: 02-02-2023 End: 02-02-2023 Patient encounter procedure 02/02/2023 1:30 PM EDT Procedure visit [facility] [address] [place] [address] Celena Fields MD [address] [place] [address] Discharge Disposition: Home [facility] Start: 12-01-2022 End: 12-01-2022 Patient encounter procedure 12/01/2022 1:30 PM EDT Office Visit [facility] [address] [place] [address] Celena Fields MD [address] [place] [address] Discharge Disposition: Home [facility] Start: 11-03-2022 End: 11-03-2022 Patient encounter procedure 11/03/2022 Procedure visit Neurology Celena Fields MD [address] [place] [address] [facility] Start: 10-13-2022 End: 10-13-2022 Patient encounter procedure 10/13/2022 Office Visit Neurology Celena Fields MD [address] [place] [address] [facility] Start: 10-05-2022 End: 10-05-2022 Patient encounter procedure 10/05/2022 Office Visit Neurology Donna Levy, ROCKY [address] [place] [address] [facility] Start: 09-22-2022 End: 09-22-2022 Patient encounter procedure 09/22/2022 Office Visit Neurology Augusto Moncada MD [address] [place] [address] [facility] Start: 09-10-2022 End: 09-10-2022 Patient encounter procedure 09/10/2022 Office Visit Neurology Richar Talbert MD [address] [place] [address] [facility] Start: 08-27-2022 End: 08-27-2022 Follow-up encounter 08/27/2022 Follow-Up Neurosurgery Peter Portillo Ed, MD [address] [place] [address] [facility] Start: 08-27-2022 End: 08-27-2022 Patient encounter procedure 08/27/2022 Office Visit Neurology Augusto Moncada MD [address] [place] [address] [facility] Start: 08-03-2022 End: 08-03-2022 Admission to same day surgery center 08/03/2022 Clinical Support Neurosurgery Elodia Riojas, TAMMY [facility] Start: 07-25-2022 End: 07-25-2022 Patient encounter procedure 07/25/2022 Appointment Home Health Services Kenyetta Domingo RN [facility] Start: 07-24-2022 End: 07-24-2022 Patient encounter procedure 07/24/2022 Appointment Home Health Services Christine Marroquin RN [facility] Start: 07-22-2022 End: 07-22-2022 Patient encounter procedure 07/22/2022 Appointment Home Health Services Christine Marroquin RN [facility] Start: 07-15-2022 End: 07-15-2022 INTRATHECAL PUMP REMOVAL INTRATHECAL PUMP REMOVAL INFECTION OF INTRATHECAL PUMP 07/15/2022 2:35 PM [facility] Start: 04-30-2022 Influenza vaccination [facility] Start: 01-30-2022 End: 01-30-2022 Patient encounter procedure 01/30/2022 Office Visit Gastroenterology René Spear MD [address] [place], [place] [address] [place] [address] Gastroenterology and Hepatology [facility] Start: 12-22-2021 End: 12-22-2021 Esophagogastroduodenoscopy transoral diagnostic EGD DIAGNOSTIC PEG tube malfunction 12/22/2021 8:36 AM EDT [facility] Start: 12-04-2021 End: 12-04-2021 Patient encounter procedure 12/04/2021 Office Visit Neurology Donna Brush, DIRECT[employer] [address] [place] [address] [facility] Start: 08-21-2021 End: 08-21-2021 Patient encounter procedure 08/21/2021 Office Visit Neurology Donna Brush, DIRECT[employer] [address] [place] [address] [facility] Start: 07-25-2021 Subsequent hospital visit by physician 07/25/2021 Hospital Encounter Wilder Cross DO [address] [address] [facility] Start: 06-20-2021 End: 06-20-2021 ambulatory 06/20/2021 Evaluation Rehabilitation Mast, Cynthia Hernandez, [facility] [address] [place] [address] Sisi Wills PT [facility] Start: 06-18-2021 End: 06-18-2021 Patient encounter procedure [facility] Start: 05-30-2021 Subsequent hospital visit by physician 05/30/2021 Hospital Encounter Wilder Cross DO [address] [address] [facility] Start: 05-01-2021 End: 05-01-2021 Patient encounter procedure [facility] [facility] Start: 04-30-2021 Influenza vaccination [facility] Start: 04-30-2021 Subsequent hospital visit by physician [facility] Start: 02-10-2021 End: 02-10-2021 Patient encounter procedure 02/10/2021 Office Visit Wound Care Werner Kaplan Jr., MD [address] [address] [phone] [facility] Start: 02-04-2021 End: 02-04-2021 Patient encounter procedure 02/04/2021 Office Visit General Surgery Werner Kaplan Jr., MD [address] [address] [phone] Wilder Cross DO [address] [address] [phone] [facility] Start: 01-13-2021 End: 01-13-2021 Patient encounter procedure 01/13/2021 Office Visit Wound Care Werner Kaplan Jr., MD [address] [facility] [address] [place] [address] [phone] [facility] Start: 01-09-2021 End: 01-09-2021 Office Visit 01/09/2021 Office Visit Neurology Ruma Godwin, DIRECTOR OF GLOBAL SALES [address] [facility] [address] [place] [address] [phone] [facility] Start: 12-17-2020 End: 12-17-2020 Office Visit 12/17/2020 Office Visit Neurology Richar Talbert MD [address] [facility] [address] [place] [address] [phone] [facility] Start: 12-03-2020 End: 12-03-2020 Office Visit 12/03/2020 Office Visit Neurology Richar Talbert MD [address] [facility] [address] [place] [address] [phone] [facility] Start: 09-23-2020 End: 09-23-2020 Office Visit 09/23/2020 Office Visit Neurology Yany Wright, DIRECTOR OF GLOBAL SALES [address] [facility] [address] [place] [address] [phone] [facility] Start: 09-19-2020 End: 09-19-2020 Office Visit 09/19/2020 Office Visit Neurology Ruma Godwin, DIRECTOR OF [employer]LOBAL SALES [address] [facility] [address] [place] [address] [phone] [facility] Start: 07-03-2020 End: 07-03-2020 Office Visit 07/03/2020 Office Visit Pulmonology Stephy Cisse MD [address] [facility] [place] [address] [phone] [facility] Start: 05-30-2020 End: 05-30-2020 Office Visit 05/30/2020 Office Visit Neurology Ruma Godwin, DIRECTOR OF [employer]BAL SALES [address] [facility] [address] [place] [address] [phone] [facility] Start: 04-30-2020 Influenza vaccination given Sequential Influenza Vaccine (#1) [facility] Start: 2020 Screening for malignant neoplasm of cervix [facility] Start: 02-08-2020 End: 02-08-2020 Office Visit 02/08/2020 Office Visit Neurology Ruma Godwin, DIRECTOR OF [employer]LOBAL SALES [address] [facility] [address] [place] [address] [phone] [facility] Start: 01-15-2020 End: 01-15-2020 Office Visit 01/15/2020 Office Visit Pulmonology Stephy Cisse MD [address] [facility] [place] [address] [phone] [facility] Start: 10-19-2019 End: 10-19-2019 Office Visit 10/19/2019 Office Visit Neurology Ruma Godwin, DIRECTOR OF GLOBAL SALES [address] [facility] [address] [place] [address] [phone] [facility] Start: 06-29-2019 End: 06-29-2019 Procedure visit [facility] Start: 05-24-2019 End: 05-24-2019 Appointment [facility] Nuclear Medicine Start: 05-22-2019 End: 05-22-2019 Appointment 05/22/2019 Appointment Radiology Wilder Noland MD [address] [place] [address] [phone] [facility] Nuclear Medicine Start: 05-22-2019 End: 05-22-2019 Appointment 05/22/2019 Appointment Radiology Wilder Noland MD [address] [facility] [address] [place] [address] [phone] [facility] Nuclear Medicine Start: 05-09-2019 End: 05-09-2019 Office Visit 05/09/2019 Office Visit Plastic Surgery Wilder Noland MD [address] [facility] [address] [place] [address] [phone] [facility] Start: 04-30-2019 Influenza vaccination given [facility] Start: 04-03-2019 End: 02-02-2020 Hepatic function 2000 panel - Serum or Plasma Hepatic Function Panel Lab Routine Intractable symptomatic generalized epilepsy (HCC) Medication management Expected: 04/03/2019, Expires: 02/02/2020 [facility] Comment on above: Expected: 04/03/2019, Expires: 0 Start: 03-09-2019 End: 03-09-2019 Office Visit 03/09/2019 Office Visit Neurology Ruma Godwin, DIRECTOR OF [employer] SALES [address] [facility] [address] [place] [address] [phone] [facility] Start: 03-03-2019 End: 02-02-2020 Hepatic function 2000 panel - Serum or Plasma Hepatic Function Panel Lab Routine Intractable symptomatic generalized epilepsy (HCC) Medication management Expected: 03/03/2019, Expires: 02/02/2020 [facility] Comment on above: Expected: 03/03/2019, Expires: 0 Start: 02-01-2019 End: 02-01-2019 Office Visit 02/01/2019 Office Visit Neurology Yany Wright, DIRECTOR OF [employer] SALES [address] [facility] [address] [place] [address] [phone] [facility] Start: 01-12-2019 End: 01-12-2019 Ambulatory 01/12/2019 Office Visit Pulmonology Stephy Cisse MD [address] [facility] [address] [place], [place] [address] [phone] [facility] Start: 11-21-2018 End: 11-21-2018 Office Visit 11/21/2018 Office Visit Neurology Ruma Godwin, DIRECTOR OF [employer] SALES [address] [place] [address] [phone] [facility] Start: 08-04-2018 End: 08-04-2018 Ambulatory 08/04/2018 Office Visit Neurology Ruma Godwin, DIRECTOR OF [employer] SALES [address] [place] [address] [phone] [facility] Start: 08-03-2018 End: 08-03-2018 Ambulatory 08/03/2018 Office Visit Neurology Yany Wright, DIRECTOR OF [employer] SALES [address] [place] [address] [phone] [facility] Start: 05-09-2018 End: 05-09-2018 Ambulatory 05/09/2018 Office Visit Neurology Ruma Godwin, DIRECTOR OF GLOBAL SALES [address] [place] [address] [phone] [facility] Start: 04-30-2018 Influenza vaccination SEQUENTIAL INFLUENZA VACCINE (#1) [facility] Start: 04-30-2018 Influenza vaccination given SEQUENTIAL INFLUENZA VACCINE (#1) [facility] Start: 04-21-2018 End: 04-21-2018 Ambulatory 04/21/2018 Office Visit Neurology Ruma Godwin, DIRECTOR OF [employer] SALES [address] [place] [address] [phone] [facility] Start: 01-19-2018 End: 01-19-2018 Ambulatory 01/19/2018 Office Visit Neurology Yany Wright, DIRECTOR OF [employer] SALES [address] [place] [address] [phone] [facility] Start: 01-12-2018 End: 01-12-2018 Ambulatory 01/12/2018 Office Visit Pulmonology Stephy Cisse MD [address] [facility] [place] [address] [phone] [facility] Start: 01-07-2018 Ambulatory 01/07/2018 Office Visit Neurology Ruma Godwin, DIRECTOR OF [employer] SALES [address] [facility] [address] [place] [address] [phone] [facility] Start: 11-15-2017 Ambulatory 11/15/2017 Office Visit Pulmonology Amalia Terry MD [address] [facility] [place] [address] [phone] [facility] Start: 09-17-2017 Ambulatory 09/17/2017 Office Visit Neurology Ruma Godwin, DIRECTOR OF [employer] SALES [address] [place] [address] [phone] [facility] Start: 08-02-2017 Ambulatory 08/02/2017 Appointment Cardiology Nikhil Pandya DO [address] [place] [address] [phone] [facility] Cardiac Non-Invasive Start: 07-26-2017 Ambulatory 07/26/2017 Office Visit Neurology Yany Wright, DIRECTOR OF [employer] SALES [address] [place] [address] [phone] [facility] Start: 07-26-2017 Ambulatory 07/26/2017 Office Visit Cardiology Stephy Cisse MD [address] [facility] [place] [address] [phone] Nikhil Pandya DO [address] [place] [address] [phone] [facility] Start: 07-15-2017 Ambulatory 07/15/2017 Office Visit Pulmonology Stephy Cisse MD [address] [facility] [address] [phone] [facility] Start: 06-16-2017 Ambulatory 06/16/2017 Office Visit Neurology Yany Wright, DIRECTOR OF [employer]LO[employer] SALES [address] [facility] [address] [place] [address] [phone] [facility] Start: 06-01-2017 Ambulatory 06/01/2017 Office Visit Neurology Ruma Godwin, DIRECTOR OF [employer]LO[employer] SALES [address] [place] [address] [phone] [facility] Start: 04-30-2017 Influenza vaccination SEQUENTIAL INFLUENZA VACCINE (#1) [facility] Work Phone: Start: 04-30-2017 SEQUENTIAL INFLUENZA VACCINE (#1) SEQUENTIAL INFLUENZA VACCINE (#1) [facility] Work Phone: Start: 04-26-2017 Ambulatory 04/26/2017 Office Visit Neurology Yany Wright, DIRECTOR OF [employer]LOBAL SALES [address] [facility] [address] [place] [address] [phone] [facility] Start: 2011 Screening for malignant neoplasm of cervix [facility] Start: 08-10-2009 Pneumococcal Vaccine: Ped or At-Risk (2 - PCV) Pneumococcal Vaccine: Ped or At-Risk (2 - PCV) [facility] Start: 2009 Third diphtheria, tetanus and acellular pertussis (DTaP) vaccination TDAP (ADULT) [facility] Start: 2008 Hepatitis C antibody, confirmatory test Hepatitis C Screening [facility] Start: 2008 Hepatitis C screening Hepatitis C Screening [facility] Start: 2008 Tetanus vaccination TETANUS [facility] Start: 2006 COVID-19 Vaccine (1 of 2) COVID-19 Vaccine (1 of 2) [facility] Start: 2006 COVID-19 Vaccine (1) COVID-19 Vaccine (1) [facility] Start: 2005 HIV screening [facility] Start: 2002 Adolescent depression screening assessment Depression Screening (PHQ9) [facility] Start: 2002 COVID-19 Vaccine (1) COVID-19 Vaccine (1) [facility] Start: 2002 Depression screening using PHQ-9 (Patient Health Questionnaire 9) score [facility] Start: 2000 Urine screening for protein Urine Microalbumin [facility] Start: 1995 COVID-19 Vaccine (1) COVID-19 Vaccine (1) [facility] Start: 1993 History and physical examination, annual for health maintenance Wellness Visit [facility] Start: 1990 COVID-19 Vaccine (#1) COVID-19 Vaccine (#1) [facility] Start: 1990 Cytopathology procedure, preparation of smear, genital source PAP SMEAR [facility] Work Phone: Start: 1990 Depression screening using PHQ-9 (Patient Health Questionnaire 9) score DEPRESSION SCREENING (PHQ9) [facility] Start: 1990 Hepatitis C antibody, confirmatory test HEPATITIS C VIRUS SCREENING [facility] Start: 1990 Microscopic observation Cyto stain Nom (Cvx) PAP SMEAR [facility] Work Phone: Start: 1990 Screening for malignant neoplasm of cervix PAP SMEAR [facility] Start: 1990 Screening for substance abuse SUBSTANCE ABUSE SCREENING (AUDIT-C) [facility] Start: 1990 TETANUS EVERY 10 YR TETANUS EVERY 10 YR [facility] Work Phone: Start: 1990 Tetanus vaccination [facility] End: 01-20-2022 Albumin [Mass/volume] in Serum or Plasma Albumin Lab Routine Pressure injury of right ischium, stage 3 (HCC) Other cerebral palsy (HCC) 1 Occurrences starting 01/20/2021 until 01/20/2022 [facility] Comment on above: 1 Occurrences starting 01/20/2021 until 01/20/2022 Bacteria identified Aer cx Nom (Bone) Bone Aerobic Culture Routine 12/02/2018 11:44 AM EDT [facility] End: 02-12-2020 Bacteria identified Aer cx Nom (Unsp spec) Urine Aerobic Culture Microbiology Routine Once for 1 Occurrences starting 02/12/2020 until 02/12/2020, 1 completed [facility] Comment on above: Once for 1 Occurrences starting 02/12/20 20 until 02/12/2020, 1 completed Bacteria identified Aer cx Nom (Unsp spec) Urine Aerobic Culture Microbiology Routine 02/13/2020 3:44 AM EDT [facility] Bacteria identified Anaer cx Nom (Unsp spec) Bone Anaerobic Culture Routine 12/02/2018 11:44 AM EDT [facility] Bacteria identified Cx Nom (Bld) [facility] Bacteria identified in Unspecified specimen by Anaerobe culture [facility] COLOSTOMY LAPAROSCOPIC COLOSTOMY LAPAROSCOPIC Pressure injury of right ischium, stage 3 (HCC) [facility] End: 02-02-2020 Complete blood count with white cell differential, manual CBC and Differential Lab Routine Intractable symptomatic generalized epilepsy (HCC) Medication management 1 Occurrences starting 02/01/2019 until 02/02/2020 [facility] Comment on above: 1 Occurrences starting 02/01/2019 until 02/02/2020 End: 08-14-2025 Complete blood count with white cell differential, manual CBC and Differential Lab Routine Intractable symptomatic generalized epilepsy (HCC) 1 Occurrences starting 08/14/2024 until 08/14/2025 [facility] Comment on above: 1 Occurrences starting 08/14/2024 until 08/14/2025 End: 02-02-2020 Comprehensive metabolic 2000 panel Comprehensive Metabolic Panel Lab Routine Intractable symptomatic generalized epilepsy (HCC) Medication management 1 Occurrences starting 02/01/2019 until 02/02/2020 [facility] Comment on above: 1 Occurrences starting 02/01/2019 until 02/02/2020 End: 08-15-2025 Comprehensive metabolic 2000 panel - Serum or Plasma Comprehensive Metabolic Panel Lab Routine Intractable symptomatic generalized epilepsy (HCC) 1 Occurrences starting 08/14/2024 until 08/15/2025 [facility] Comment on above: 1 Occurrences starting 08/14/2024 until 08/15/2025 End: 07-27-2018 Comprehensive metabolic panel [AGGREGATE] Comprehensive Metabolic Panel Routine Tachycardia Generalized edema 1 Occurrences starting 07/26/2017 until 07/27/2018 [facility] Work Phone: Comprehensive metabo lic panel [AGGREGATE] Comprehensive Metabolic Panel Routine Tachycardia Generalized edema 07/26/2017 11:58 AM EST [facility] Work Phone: CSF Fungus Culture CSF Fungus Cu lture Microbiology Routine 07/15/2022 4:26 PM EST [facility] End: 09-25-2018 Echocardiogram complete Echocardiogram complete Routine Tachycardia Generalized edema 1 Occurrences starting 07/26/2017 until 09/25/2018 [facility] Work Phone: End: 07-26-2017 Holter monitor - 24 hour Holter monitor - 24 hour Routine Tachycardia Once for 1 Occurrences starting 07/26/2017 until 07/26/2017 [facility] Work Phone: End: 09-25-2018 Holter monitor - 24 hour Holter monitor - 24 hour Routine Tachycardia 1 Occurrences starting 07/26/2017 until 09/25/2018 [facility] Work Phone: End: 02-02-2020 Lamotrigine measurement Lamotrigine Level Lab Routine Intractable symptomatic generalized epilepsy (HCC) Medication management 1 Occurrences starting 02/01/2019 until 02/02/2020 [facility] Comment on above: 1 Occurrences starting 02/01/2019 until 02/02/2020 End: 08-14-2025 Lamotrigine measurement Lamotrigine Level Lab Routine Intractable symptomatic generalized epilepsy (HCC) 1 Occurrences starting 08/14/2024 until 08/14/2025 [facility] Work Phone: Comment on above: 1 Occurrences starting 08/14/2024 until 08/14/2025 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 fluid by Organism specific culture CSF AFB Culture Microbiology Routine 07/15/2022 4:26 PM [facility] Work Phone: End: 05-08-2020 NM Bone Limited Study NM Bone Limited Study Imaging Routine Wound healing, delayed 1 Occurrences starting 05/09/2019 until 05/08/2020 [facility] Comment on above: 1 Occurrences starting 05/09/2019 until 05/08/2020 End: 05-08-2020 NM White Blood Cell SPECT NM White Blood Cell SPECT Imaging Routine Wound healing, delayed 1 Occurrences starting 05/09/2019 until 05/08/2020 [facility] Comment on above: 1 Occurrences starting 05/09/2019 until 05/08/2020 Patient Education ED Wound Care [facility] Work Phone: End: 07-26-2018 Prealbumin Prealbumin Routine Tachycardia Generalized edema 1 Occurrences starting 07/26/2017 until 07/26/2018 [facility] Work Phone: Prealbumin Prealbumin Routi ne Tachycardia Generalized edema 07/26/2017 11:58 AM [facility] Work Phone: End: 01-20-2022 Prealbumin [Mass/volume] in Serum or Plasma Prealbumin Lab Routine Pressure injury of right ischium, stage 3 (HCC) Other cerebral palsy (HCC) 1 Occurrences starting 01/20/2021 until 01/20/2022 [facility] Comment on above: 1 Occurrences starting 01/20/2021 until 01/20/2022 End: 02-02-2020 Serum levetiracetam measurement Levetiracetam Level Lab Routine Intractable symptomatic generalized epilepsy (HCC) Medication management 1 Occurrences starting 02/01/2019 until 02/02/2020 [facility] Comment on above: 1 Occurrences starting 02/01/2019 until 02/02/2020 End: 08-14-2025 Serum levetiracetam measurement Levetiracetam Level Lab Routine Intractable symptomatic generalized epilepsy (HCC) 1 Occurrences starting 08/14/2024 until 08/14/2025 [facility] Comment on above: 1 Occurrences starting 08/14/2024 until 08/14/2025 Tissue AFB Culture Tissue AFB Cu lture Microbiology Routine 07/15/2022 4:41 PM [facility] Tissue Fungus Culture Tissue Fun sotero Culture Microbiology Routine 07/15/2022 4:41 PM [facility] End: 07-26-2018 TSH with Reflex Free T4 TSH with Reflex Free T4 Routine Tachycardia Generalized edema 1 Occurrences starting 07/26/2017 until 07/26/2018 [facility] Work Phone: TSH with Reflex Free T4 TSH with Reflex Free T4 Routine Tachycardia Generalized edema 07/26/2017 11:58 AM [facility] Work Phone: Wound AFB Culture Wound AFB Cult ure Microbiology Routine 07/15/2022 4:40 PM [facility] Wound Fungus Culture Wound Fungu s Culture Microbiology Routine 07/15/2022 4:40 PM EST [facility] Wound microscopy, cu lture and sensitivities [facility] Wound ostomy eval and treat Woun d ostomy eval and treat Wound Ostomy Routine Pressure injury of right ischium, stage 3 (HCC) Ordered: 02/06/2021 [facility] Comment on above: Ordered: 02/06/2021 Wound ostomy eval and treat Woun d ostomy eval and treat Wound Ostomy Routine Pressure injury of right ischium, stage 3 (HCC) Ordered: 02/06/2021 [facility] Work Phone: Comment on above: Ordered: 02/06/2021 XR Chest 1 View XR Chest 1 View Imaging VANE 05/04/2019 4:54 PM EDT [facility] End: 05-09-2020 XR Hips Bilateral With Pelvis 5+ Views XR Hips Bilateral With Pelvis 5+ Views Imaging Routine Wound healing, delayed 1 Occurrences starting 05/09/2019 until 05/09/2020 [facility] Comment on above: 1 Occurrences starting 05/09/2019 until 05/09/2020 Immunizations Immunization Date Immunization Notes Care Provider Juanito greenwood 07-19-2024 influenza virus vacc ine, unspecified formulation Yany Wright CNP Work Phone: [facility] 09-27-2019 influenza, injectabl e, quadrivalent, preservative free Barron Moncada [facility] 09-27-2019 influenza virus vacc ine, unspecified formulation Alex Velasco MD Work Phone: [facility] 06-02-2017 influenza virus vacc ine, unspecified formulation Stephy Jason [facility] Work Phone: 11-24-2016 influenza, injectabl e, quadrivalent, preservative free; Translations: [INFLUENZA IIV4 3YO OR > FLUARIX/FLUZONE/AFLURIA 93684] Stephy Cisse [facility] 08-01-2016 influenza, injectabl e, quadrivalent, preservative free; Translations: [INFLUENZA IIV4 3YO OR > FLUARIX/FLUZONE/AFLURIA 08972] Stephy Cisse [facility] 08-10-2008 pneumococcal polysaccharide vaccine, 23 valent Stephy Cisse [facility] Work Phone: 06-24-2008 influenza virus vacc ine, unspecified formulation Stephy Cisse [facility] 05-31-2004 influenza virus vacc ine, [facility] influenza, seasonal, injectable [facility] 07-02-2003 poliovirus vaccine, inactivated [facility] 03-31-2003 measles, mumps and rubella virus vaccine [facility] 07-13-2001 influenza, seasonal, injectable [facility] 11-24-2000 hepatitis B vaccine, pediatric or pediatric/adolescent dosage [facility] 11-24-2000 measles, mumps and rubella virus vaccine [facility] 09-08-2000 hepatitis B vaccine, pediatric or pediatric/adolescent dosage [facility] 04-21-1999 varicella virus vaccine [facility] 09-22-1995 diphtheria, tetanus toxoids and acellular pertussis vaccine, unspecified formulation [facility] 01-25-1992 diphtheria, tetanus toxoids and acellular pertussis vaccine, unspecified formulation [facility] 01-25-1992 haemophilus influenz ae type b vaccine, conjugate unspecified formulation [facility] 01-25-1992 measles, mumps and rubella virus vaccine [facility] 01-25-1992 poliovirus vaccine, unspecified formulation [facility] 02-16-1991 diphtheria, tetanus toxoids and acellular pertussis vaccine, unspecified formulation [facility] 02-16-1991 haemophilus influenz ae type b vaccine, conjugate unspecified formulation [facility] 1990 diphtheria, tetanus toxoids and acellular pertussis vaccine, unspecified formulation [facility] 1990 haemophilus influenz ae type b vaccine, conjugate unspecified formulation [facility] 1990 poliovirus vaccine, unspecified formulation [facility] 1990 diphtheria, tetanus toxoids and acellular pertussis vaccine, unspecified formulation [facility] 1990 haemophilus influenz ae type b vaccine, conjugate unspecified formulation [facility] 1990 poliovirus vaccine, unspecified formulation [facility] Payers Date Payer Category Payer Self-pay 2015 [facility] 2015-Present [id number] 2015 Medicaid [id number] 2015 Medicaid [id number] 2014 Medicaid [id number] 1990 Unknown [id number] 1990 Unknown [id number] 1990 Unknown [id number] 1990 Unknown [id number] 1990 Unknown [id number] 1990 Unknown [id number] 1990 Unknown [id number] [id number] 1990 Unknown [id number] [id number] 1990 Unknown [id number] 1990 Unknown [id number] 2.16.840.1.364949.3.579.2.903 1990 Unknown [id number] 2.16.840.1.906581.3.579.2.900 1990 Unknown [id number] 2.16.840.1.608828.3.579.2.900 1990 Unknown [id number] 2.16.840.1.964797.3.579.2.900 1990 Unknown [id number] 2.16.840.1.921105.3.579.2.900 1990 Unknown [id number] 2.16.840.1.750792.3.579.2.900 1990 Unknown [id number] 2.16.840.1.294766.3.579.2.900 1990 Unknown [id number] 2.16.840.1.685351.3.579.2.419 1990 Unknown [id number] 2.16.840.1.068081.3.579.2.419 1990 Unknown [id number] 2.16.840.1.628329.3.579.2.419 1990 Unknown [id number] 2.16.840.1.556080.3.579.2.419 1990 Unknown [id number] 2.16.840.1.889716.3.579.2.419 1990 Unknown [id number] 2.16.840.1.303015.3.579.2.419 1990 Unknown [id number] 2.16.840.1.493109.3.579.2.419 1990 Unknown [id number] 2.16.840.1.363159.3.579.2.419 1990 Unknown [id number] 2.16.840.1.360936.3.579.2.419 1990 Unknown [id number] 2.16.840.1.904209.3.579.2.903 1990 Unknown [id number] 2.16.840.1.529477.3.579.2.903 1990 Unknown [id number] 2.16.840.1.888397.3.579.2.903 Unknown [id number] 2.16.840.1.632325.3.579.2.462 Unknown [id number] 2.16.840.1.763675.3.579.2.462 Unknown [id number] 2.16.840.1.714749.3.579.2.462 Unknown [id number] 2.16.840.1.641636.3.579.2.462 Unknown [id number] 2.16.840.1.614054.3.579.2.462 Unknown [id number] 2.16.840.1.635377.3.579.2.462 Unknown [id number] 2.16.840.1.151449.3.579.2.462 Unknown [id number] 2.16.840.1.001797.3.579.2.462 Unknown [id number] 2.16840.1.836137.3.579.2.462 Unknown [id number] 2.16.840.1.401568.3.579.2.462 Unknown [id number] 2.16.840.1.590253.3.579.2.462 Unknown [id number] 2.16.840.1.378066.3.579.2.462 Unknown [id number] 2.16840.1.833723.3.579.2.462 Unknown [id number] 2.16840.1.147408.3.579.2.462 Unknown [id number] 2.16840.1.301930.3.579.2.462 Unknown [id number] 2.16840.1.062493.3.579.2.462 Unknown [id number] 2.16840.1.011827.3.579.2.462 Social History Date Type Detail Facility Start: 01-12-2018 End: 04-06-2025 Tobacco smoking status NHIS Never smoker [facility] Start: 1990 Sex Assigned At Not on file [facility] Work Phone: Start: 05-09-2019 End: 12-14-2024 Alcohol intake Current non-drinker of alcohol (finding) [facility] Start: 09-17-2021 End: 12-08-2022 Exposure to SARS-CoV-2 (event) Not sure [facility] Start: 05-29-2020 End: 12-01-2022 Tobacco use and exposure Never used [facility] Exposure to SARS-CoV -2 (event) Yes [facility] Start: 11-17-2021 End: 12-22-2021 Alcohol intake Lifetime non-drinker (finding) [facility] Start: 12-23-2020 History SDOH Alcohol Frequency 1 [facility] Start: 07-16-2022 End: 04-21-2024 History of Social function [facility] Start: 07-16-2022 End: 04-21-2024 Tobacco use panel [facility] Adult Depression Screening Assessment 0 [facility] Start: 05-29-2018 Gender identity Identifies as female gender (finding) [facility] Start: 05-29-2018 Sexual orientation Heterosexual (finding) [facility] Tobacco smoking stat us NHIS Unknown if ever smoked [facility] Work Phone: Start: 1990 Sex Assigned At Female [facility] Medical Equipment Procedure Code Equipment Code Equipment Origin al Text Equipment Identifier Dates Pump 40ml Pain Synchromed Ii - [id number] Start: 07-27-2016 Kit 8ml Matrix Hemostatic W/Thrombin Surgiflo - [id number] Start: 07-27-2016 Pump 40ml Pain Synchromed Ii - [id number] Start: 07-27-2016 Kit 8ml Matrix Hemostatic W/Thrombin Surgiflo - [id number] Start: 07-27-2016 Pump 40ml Pain Synchromed Ii - [id number] Start: 07-27-2016 Kit 8ml Matrix Hemostatic W/Thrombin Surgiflo - [id number] Start: 07-27-2016 Pump 40ml Pain Synchromed Ii - [id number] Start: 07-27-2016 Kit 8ml Matrix Hemostatic W/Thrombin Surgiflo - [id number] Start: 07-27-2016 Pump 40ml Pain Synchromed Ii - [id number] Start: 07-27-2016 Kit 8ml Matrix Hemostatic W/Thrombin Surgiflo - [id number] Start: 07-27-2016 Pump 40ml Pain Synchromed Ii - [id number] Start: 07-27-2016 Kit 8ml Matrix Hemostatic W/Thrombin Surgiflo - [id number] Start: 07-27-2016 Pump 40ml Pain Synchromed Ii - [id number] Start: 07-27-2016 Kit 8ml Matrix Hemostatic W/Thrombin Surgiflo - [id number] Start: 07-27-2016 Pump 40ml Pain Synchromed Ii - [id number] Start: 07-27-2016 Kit 8ml Matrix Hemostatic W/Thrombin Surgiflo - [id number] Start: 07-27-2016 Pump 40ml Pain Synchromed Ii - [id number] Start: 07-27-2016 Kit 8ml Matrix Hemostatic W/Thrombin Surgiflo - [id number] Start: 07-27-2016 Pump 40ml Pain Synchromed Ii - [id number] Start: 07-27-2016 Kit 8ml Matrix Hemostatic W/Thrombin Surgiflo - [id number] Start: 07-27-2016 Pump 40ml Pain Synchromed Ii - [id number] Start: 07-27-2016 Kit 8ml Matrix Hemostatic W/Thrombin Surgiflo - [id number] Start: 07-27-2016 Pump 40ml Pain Synchromed Ii - [id number] Start: 07-27-2016 Kit 8ml Matrix Hemostatic W/Thrombin Surgiflo - [id number] Start: 07-27-2016 Pump 40ml Pain Synchromed Ii - [id number] Start: 07-27-2016 Kit 8ml Matrix Hemostatic W/Thrombin Surgiflo - [id number] Start: 07-27-2016 Pump 40ml Pain Synchromed Ii - [id number] Start: 07-27-2016 Kit 8ml Matrix Hemostatic W/Thrombin Surgiflo - [id number] Start: 07-27-2016 Pump 40ml Pain Synchromed Ii - [id number] Start: 07-27-2016 Kit 8ml Matrix Hemostatic W/Thrombin Surgiflo - [id number] Start: 07-27-2016 Pump 40ml Pain Synchromed Ii - [id number] Start: 07-27-2016 Kit 8ml Matrix Hemostatic W/Thrombin Surgiflo - [id number] Start: 07-27-2016 Pump 40ml Pain Synchromed Ii - [id number] Start: 07-27-2016 Kit 8ml Matrix Hemostatic W/Thrombin Surgiflo - [id number] Start: 07-27-2016 Pump 40ml Pain Synchromed Ii - [id number] Start: 07-27-2016 Kit 8ml Matrix Hemostatic W/Thrombin Surgiflo - [id number] Start: 07-27-2016 Pump 40ml Pain Synchromed Ii - [id number] Start: 07-27-2016 Kit 8ml Matrix Hemostatic W/Thrombin Surgiflo - [id number] Start: 07-27-2016 Pump 40ml Pain Synchromed Ii - [id number] Start: 07-27-2016 Kit 8ml Matrix Hemostatic W/Thrombin Surgiflo - [id number] Start: 07-27-2016 [place] 07/05 [facility] [id number], [id number] FDA Start: 11-17-2021 Comment on above: Description: Closure of old PEG site Pump 40ml Pain Synchromed Ii - [id number] Start: 07-15-2022 Comment on above: Description: LEFT LO WER QUADRANT Intrathecal Catheter Pump Segment Revision Kit [id number] Start: 07-15-2022 Pump 40ml Pain Synchromed Ii - [id number] Start: 07-15-2022 Kit 12fr 15cm Ca th Dialysis Str 3-Lumen Pi Temp Ir Only - [id number] Start: 05-01-2024 Tube Sz6 Trach Cuffed Fen Disp - Sn/A [id number])N/A, [id number] FDA Start: 05-04-2024 Mental Status Date Assessment Result Facility 05-01-2025 Cognitive function Voice/Name [facility] Work Phone: Clinical Notes 01-09-2021 to 04-20-2025 Note Date & Type Note Facility 04-20-2025 Progress note Note Date/Time April 20, 2025 8:06am [facility] [address] [place] [address] Progress Note - Wound Care 04/19/25 1710 MR#: [id number] Acct: [id number] Name: CLAUDINE JOSEPH Rep #:[id number] : 1990 35 From: Onelia QUINONES PCP: Dr. Colette Goode MD Status: REG RCR Location: History of Present Illness Date of Service: 04/19/25 Chief Complaint: R buttock pressure ulceration History of Wound: Claudine Joseph is a 34 y/o female with cerebral palsy who is nonverbal and nonmobile, she has full care from her adoptive mother, Peg, who is present at her appointment today. She [facility]; however, due to scheduling difficulties will be transitioning to my care. Peg tells me that she has had this ulceration to some extent for the past ~7 years. They have had wound care previously at a different clinic close to their home but recently decided to change to seek a different approach. She reports around year 2 of the wound a wound vac was tried, but it sounds like there was difficulty maintaining good seal. She reports through the years they have consulted with 4 different surgeons to consider surgical management but each time have opted to continue nonsurgical efforts. She reports that there has never been any known associated fistula; she has never seen any fecal matter or drainage in/around the wound. Patient does not have any history of diverticulitis/colocutaneous fistulas, pilonidal cysts or similar conditions. She reports no foul odor or thick/purulent drainage recently. She reports that Claudine has been on IV antibiotics for this ulceration in the past with PICC/midlines; there was consideration of a port but she was felt to be too highrisk for infection with this. 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 though no recent flares in the last year. She does have a low air loss mattress and robustpadding in her wheelchair but she is completely nonambulatory. She has a history of malnutrition (relies on feeding tube for nutrition), urine incontinence (she has a long-term sage catheter), fecal incontinence (averages 1 BM per day, Peg reports this is managed quickly to prevent soiling of the wound) iron deficiency anemia, and gall bladder and kidney issues per report. She is currently between PCPs but re-establishing care with an old PCP in April. At last visit here, Jaimee obtained wound cultures and started patient on Cefdinirx 2 weeks per sensitivity results. Peg states they just started these antibiotics yesterday, so far she seems to be tolerating them well. Subjective Subjective Unfortunately, she had adverse reaction to the cipro. Her mother reports that after 1 dose she developed a rash to her face, arms, and torso; she showed a picture with appeared consistent with drug-eruption with erythematous papular rash. She reports this improved with benadryl and hydrocortisone cream after a couple days. She stopped the cipro. She did receive the linezolid but has not started this yet. She does have an appointment with Dr. Krishnamurthy next Wednesday. She otherwise has not had any fevers or other signs of systemic infection. Unfortunately, there has also been difficulty with the wound vac. Nursing here has noted each time they go to remove it the seal is broken and the vac seems tohave been off for a while. Taking into consideration that the patient has to travel an hour to get here; mother does not it tends to lose seal almost any time she change position like getting her into the car. She does admit she is having to frequently reinforce it at home. Objective Data Objective Data Vital Signs: Vital Signs Temp Pulse Resp BP O2 Del Method 97.7 F L 106 H 14 108/75 Room Air 04/19/25 14:41 04/19/25 14:41 04/19/25 14:41 04/19/25 14:41 04/19/25 14:41 Oxygen Delivery Method Room Air Charges/Coding Procedures Integumentary 111xxx-113xx: 68550 Linda musc/fascia 20 sq cm/< Physical Exam Const alert Constitutional Narrative: Nonverbal Resp normal respiratory effort Resp Narrative: O2 supplementation via NC Skin Wound Narrative: R buttock pressure ulceration cluster; Distal ulcer in the cluster near coccyx with depth, taps to bone which is hard and viable in appearance; with probing noapparent tracking; do not appreciate any purulent or feculent drainage; no surrounding excess warmth, fluctuance, induration; wound base appears granular and pink. Proximal cluster is more superficial into the subcutaneous tissue withpink/red base without significant drainage/excess warmth/fluctuance/induration. 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 Debridement Note Debridement Note Wound debrided: Decubitus ulcer right sacral Laterality: Right Wound Grade/Stage: Stage IV Type of Debridement: Excisional debridement Anesthesia Used: 5% Lidocaine Gel Depth: to muscle Percentage of wound debrided: 100 Instrument Used: 5mm curette Tissue Removed: Fibrin slough, devitalized tissue Severity: Fat Layer Exposed Amount of bleeding with debridement: Mild Bleeding Controlled with: Compression and gauze Patient tolerated procedure: Patient tolerated procedure well Post-Debridement Measurements and Additional Note: Post-Debridement Measurements/Treatment - Nurse 1 - General Ulcer Assessment Start: 03/30/25 13:28 Freq: Status: Active Protocol: ROYER Activity Type Activity Date Activity User E-sign Co-sign Detail Recorded Client Recorded Date Recorded By Document 04/05/25 13:24 DL [id number] 04/05/25 13:46 DL Document 04/12/25 13:50 KW [id number] 04/12/25 13:58 KW Document 04/19/25 14:41 KW [id number] 04/19/25 14:44 KW 04/05/25 04/12/25 04/19/25 13:24 13:50 14:41 - Today's Visit Information Type of service Follow-up Visit Follow-up Visit Follow-up Visit (Physician/DIRECTOR OF GLOBAL SALES (Physician/DIRECTOR OF GLOBAL SALES (Physician/DIRECTOR OF GLOBAL SALES ) ) ) Arrival Mode Wheelchair Wheelchair Wheelchair Transfer Assistance Slade Lift Slade Lift Slade Lift Transfer Assist (Other) x2 Accompanied by mother Patient Identification Verified (Name & Yes Yes Yes ) Patient Requires Transmission-Based No No Precautions Vital Signs Temperature (97.8 F-99.1 F) 98.7 F 98.1 F 97.7 F L Temperature Source Temporal Temporal Temporal Pulse Rate (60-100) 119 H 106 H 106 H Pulse Location Monitor Monitor Monitor Respiratory Rate (12-18) 18 16 14 Respiratory rate source Observation Observation Observation Oxygen Delivery Method Room Air Blood Pressure (90/60-120/80) 113/76 96/70 108/75 Blood Pressure Mean (mm Hg) 88 78 86 Source Monitor Monitor Monitor Position Sitting Blood Pressure Location Right Arm History Since Last Visit- (Skip if this is Patient's initial visit) Have you changed medications since your No No No last visit? Any new allergies or adverse reactions No No No Had a fall/change in ADL's that may No No No increase risk of falls Signs or symptoms of abuse and/or No No No neglect since last visit Have you been in the hospital since your No No No last visit? Has dressing in place as prescribed Yes Yes Yes Has compression in place as prescribed N/A N/A N/A Has offloadiing in place as prescribed Yes Yes N/A Experienced any changes in pain level or No No No management Left Footwear No Footwear Right Footwear No Footwear Pain Scale: 0-10 Numeric Is Patient Pain Free? Yes Yes Yes WC - Nurse 1 - General Ulcer Measurement Start: 03/30/25 13:28 Freq: Status: Active Protocol: Activity Type Activity Date Activity User E-sign Co-sign Detail Recorded Client Recorded Date Recorded By Document 04/05/25 13:24 DL [id number] 04/05/25 13:46 DL Document 04/12/25 13:50 KW [id number] 04/12/25 13:58 KW Document 04/19/25 14:41 KW [id number] 04/19/25 14:44 KW 04/05/25 04/12/25 04/19/25 13:24 13:50 14:41 Wound Center Nurse 1 #2- R BUTTOCK -Current Size (cm) - Length 2 2.5 2.2 -Current Size (cm) - Width 1.8 1.8 1.7 -Current Size (cm) - Depth 0.1 0.9 0.3 -Total Square Cm 3.6 4.50 3.74 -Photo Taken Yes -Exudate Amt Small Medium -Exudate Type Serosanguineous Serosanguineous Serosanguineous -Wound Margin Distinct, Thickened Thickened & Outline Rolled Under Attached -Granulation Amt Large (67-100%) Large (67-100%) -Granulation Quality [place] Red -Necrosis Amt Small (1-33%) Medium (34-66%) -Necrotic Tissue Type Adherent Slough Adherent Slough -Structure Exposed N/A N/A -Texture (Makenzie-wound Skin Appearance) Excoriation, Friable, Assessed Scarring Scarring -Moisture (Makenzie-wound Skin Appearance) No Abnormality No Abnormality Assessed -Color (Makenzie-wound Skin Appearance) No Abnormality No Abnormality Assessed -Temperature (Makenzie-wound Skin No Abnormality No Abnormality No Abnormality Appearance) (Pt Warm) (Pt Warm) (Pt Warm) -Tenderness on Palpation (Makenzie-wound No No Skin Appearance) -Ulcer Cleansing Soap and Water Soap and Water Soap and Water -Foul Odor after Cleansing No No No -Anesthetic Used 4% Lidocaine 5% Lidocaine 5% Lidocaine Solution Gel Gel #1 SACRAL -Current Size (cm) - Length 2.5 1 2 -Current Size (cm) - Width 3 2.5 2 -Current Size (cm) - Depth 2.8 3 2.8 -Total Square Cm 7.5 2.5 4 -Photo Taken Yes -Exudate Amt Small Medium Medium -Exudate Type Serosanguineous Serosanguineous Serosanguineous -Wound Margin Distinct, Distinct, Distinct, Outline Outline Outline Attached Attached Attached -Granulation Amt Large (67-100%) Medium (34-66%) Large (67-100%) -Granulation Quality Red Red Red -Necrosis Amt Small (1-33%) Medium (34-66%) -Necrotic Tissue Type Adherent Slough Adherent Slough -Structure Exposed N/A N/A -Texture (Makenzie-wound Skin Appearance) Excoriation, Friable, Assessed Scarring Scarring -Moisture (Makenzie-wound Skin Appearance) No Abnormality No Abnormality Assessed -Color (Makenzie-wound Skin Appearance) No Abnormality No Abnormality Assessed, Erythema -Temperature (Makenzie-wound Skin No Abnormality No Abnormality No Abnormality Appearance) (Pt Warm) (Pt Warm) (Pt Warm) -Tenderness on Palpation (Makenzie-wound No No Skin Appearance) -Ulcer Cleansing Soap and Water Soap and Water Soap and Water -Foul Odor after Cleansing No No No -Anesthetic Used 4% Lidocaine 5% Lidocaine 5% Lidocaine Solution Gel Gel WC - Nurse 2 - General Ulcer CM Notes Start: 03/30/25 13:28 Freq: Status: Active Protocol: Activity Type Activity Date Activity User E-sign Co-sign Detail Recorded Client Recorded Date Recorded By Document 04/05/25 13:52 [id number] 04/05/25 14:02 Document 04/12/25 14:05 [id number] 04/12/25 14:16 Document 04/19/25 15:08 [id number] 04/19/25 15:19 04/05/25 04/12/25 04/19/25 13:52 14:05 15:08 Wound Center Nurse 2 #2- R BUTTOCK -Time 13:52 14:06 15:08 -Correct Patient Yes Yes Yes -Correct Side, Site, Position Yes Yes Yes -Correct Procedure Yes Yes Yes -Procedure Performed Yes Yes Yes -Type of Procedure Debridement Debridement Debridement -Clinical Debridement Subcutaneous Muscle / Fascia Muscle / Fascia -Tissue Removed Subcutaneous Muscle Muscle -Post Debridement (cm) - Length 2.2 2.0 1.2 -Post Debridement (cm) - Width 3.0 2.4 2.8 -Post Debridement (cm) - Depth 0.4 0.6 1.0 -Total Square (Post) (cm) 6.60 4.80 3.36 -Area of Debridement (cm) - Length 2.2 2.0 1.2 -Area of Debridement (cm) - Width 3.0 2.4 2.8 -Total Square (Area) (cm) 6.60 4.80 3.36 -Tunneling No No No -Undermining/Tunneling No No No -Circular Undermining No No No -Wound/Ulcer Outcome Not Healed Not Healed Not Healed -Ulcer Cleansing Rinsed/ Rinsed/ Rinsed/ Irrigated with Irrigated with Irrigated with Saline Saline Saline -Foul Odor after Cleansing No No No -Bioengineered Tissue No No No -Bleeding Controlled with Pressure Pressure Pressure -Treatment Response Procedure Procedure Procedure Tolerated Well Tolerated Well Tolerated Well -Offloading No No No -Assistive Device(s) Wheelchair -Pressure Reduction Wheelchair cushion -Debridement - Subq, 1st 20sq cm No -Debridement - Muscle / Fascia, 1st No Yes 20sq cm #1 SACRAL -Time 13:53 14:06 15:18 -Correct Patient Yes Yes Yes -Correct Side, Site, Position Yes Yes Yes -Correct Procedure Yes Yes Yes -Procedure Performed Yes Yes Yes -Type of Procedure Debridement Debridement Debridement -Clinical Debridement Subcutaneous Muscle / Fascia Muscle / Fascia -Tissue Removed Subcutaneous Muscle Muscle -Post Debridement (cm) - Length 1.6 2.7 1.6 -Post Debridement (cm) - Width 1.8 1.6 1.5 -Post Debridement (cm) - Depth 3.2 2.6 2.8 -Total Square (Post) (cm) 2.88 4.32 2.40 -Area of Debridement (cm) - Length 1.6 2.7 1.6 -Area of Debridement (cm) - Width 1.8 1.6 1.5 -Total Square (Area) (cm) 2.88 4.32 2.40 -Tunneling No No No -Undermining/Tunneling No No No -Circular Undermining No No No -Wound/Ulcer Outcome Not Healed Not Healed Not Healed -Ulcer Cleansing Rinsed/ Rinsed/ Rinsed/ Irrigated with Irrigated with Irrigated with Saline Saline Saline -Foul Odor after Cleansing No No No -Bioengineered Tissue No No No -Bleeding Controlled with Pressure Pressure Pressure -Treatment Response Procedure Procedure Procedure Tolerated Well Tolerated Well Tolerated Well -Offloading No No No -Assistive Device(s) Wheelchair -Pressure Reduction Wheelchair cushion -Debridement - Subq, 1st 20sq cm Yes -Debridement - Muscle / Fascia, 1st Yes No 20sq cm Pain Scale: 0-10 Numeric Is Patient Pain Free? No Yes Yes Pain Scale: Adult NonVerbal Is Patient Pain Free? No Face Frequent Grimace, Tearing, Frowning, Wrinkled Forehead Activity (Movement) Restless, excessive activity and/or withdrawl reflexes Guarding Rigid, Stiff Physiology (Vital Signs) Stable Vital Signs Respiratory Baseline RR/ SpO2; Compliant with Ventilator Pain Intensity 6 Pain Aggravating Factors Debridement Alleviating Factors/Interventions Medication,Will continue to monitor, Emotional Support Comments Lidocaine used WC - Nurse 3 - General Ulcer D/C NN Start: 03/30/25 13:28 Freq: Status: Active Protocol: Activity Type Activity Date Activity User E-sign Co-sign Detail Recorded Client Recorded Date Recorded By Document 04/05/25 14:17 KW [id number] 04/05/25 14:31 KW Edit Result 04/05/25 14:17 KW (1) [id number] 04/11/25 15:41 KW Document 04/12/25 14:24 KW [id number] 04/12/25 14:47 KW Document 04/19/25 15:25 KW [id number] 04/19/25 15:26 KW (1) #2- R BUTTOCK - NPWT Application Charge NPWT & Debridement => NPWT > 50 sq cm ($ (nc) => ) 04/05/25 04/12/25 04/19/25 14:17 14:24 15:25 Wound Care Center Nurse 3 #2- R BUTTOCK -Negative Pressure Wound Therapy Continue -Pieces of Black Foam Inserted 5 1 -NPWT Application Charge NPWT > 50 sq cm NPWT & ($) Debridement (nc ) -Setting (mmHg) 125 -Negative Pressure is Continuous -Primary Dressing Applied Hysept -Other Dressing dakins soaked gauze -Primary Dressing Covered/Secured with Dry Gauze, Secured with Tape -Hysept 1 #1 SACRAL -Foul Odor after Cleansing Yes -Negative Pressure Wound Therapy Continue -Pieces of Black Foam Inserted 1 -NPWT Application Charge NPWT - Multiple NPWT - Multiple Locations Locations -Setting (mmHg) 125 -Negative Pressure is Continuous -Primary Dressing Applied Aquacel AG 4x4, Other -Other Dressing duoderm x2 dakins soaked gauze -Primary Dressing Covered/Secured with Dry Gauze, Secured with Tape -Aquacel AG 4x4 2 -Wound Comment(s) aquacel to excoriated area in fold, duoderm for the makenzie Pain Scale: 0-10 Numeric Is Patient Pain Free? Yes Yes Yes WC - Visit Discharge Discharge Condition Stable Stable Stable Ambulatory Status Wheelchair Wheelchair Wheelchair Transportation Private Auto Private Auto Private Auto Medication Reconcilliation completed & No No No provided to patient/care provider Clinical Summary of Care Provided Yes Yes Yes Additional Wound Wound debrided: Decubitus ulcer R gluteal Laterality: Right Type of Debridement: Excisional debridement Anesthesia Used: 4% Lidocaine Solution Depth: Down to and including healthy tissue and in the subcutaneous layer Percentage of wound debrided: 100 Instrument Used: 5mm curette Tissue Removed: slough, devitalized tissue Severity: Fat Layer Exposed Amount of bleeding with debridement: Mild Bleeding Controlled with: Pressure Assessment/Plan Assessment/Plan (1) Decubitus ulcer of right buttock, stage 4: CODE(S): L89.314 - Pressure ulcer of right buttock, 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: CODE(S): G80.8 - Other cerebral palsy (3) Incontinence of urine: CODE(S): R32 - Unspecified urinary incontinence QUALIFIERS: Urinary Incontinence type: continuous leakage Qualified Code(s): N39.45 - Continuous leakage (4) Fecal incontinence: CODE(S): R15.9 - Full incontinence of feces QUALIFIERS: Fecal incontinence type: unspecified Qualified Code(s): R15.9 - Full incontinence of feces (5) Malnutrition: CODE(S): E46 - Unspecified protein-calorie malnutrition QUALIFIERS: Malnutrition type: protein-calorie malnutrition Protein-calorie malnutrition severity: moderate Qualified Code(s): E44.0 - Moderate protein-calorie malnutrition (6) Decubitus ulcer of sacral area: CODE(S): L89.159 - Pressure ulcer of sacral region, unspecified stage QUALIFIERS: Pressure injury stage: stage 4 Qualified Code(s): L89.154 - Pressure ulcer of sacral region, stage 4 PLAN: Plan Updated wound culture 03/29/25 had rare growth of enterococcus faecalis and avium, corynebacterium striatum (contaminant), pseudomonas aeruginosa, proteus mirabilis, klebsiella aerogenes, prevotella bivia, and unspecified anaerobic species. Patient's mother reports she only ever sees improvement with IV antibiotics; given multi-species growth and patient's complexity and tapping to bone with question for osteo will refer to ID for further recommendations. In the meantime, I did review with [facility] inpatient pharmacy to determine oral antibiotic regimen that would be compatible with PEG tube. Will require a regimen of Cipro, Flagyl, and Linezolid to address the various bacteria; however, with her history of reactions feel it would be best to initiate one antibiotic at a time and her mother is in agreement. Cipro was sent last week, unfortunately after 1 dose she had what appears to have been a drug-eruption rash so this was discontinued. Her mother did bean picker the Linezolid but has not started this. At this point, with ID consult next week will hold off on initiating further antibiotics and await their recommendations. Will discontinue wound vac given issues with maintaining consistent seal; will return to packing with dakins-soaked gauze changed twice daily or more often as needed if it becomes soiled. Continue Blayne supplementation. Continue offloading efforts with frequent turns,at least every 2 hours. She is coming in next Wednesday to see ID Dr. Krishnamurthy so will skip appt; I am out the following week so will arrange a courtesy visit with another provider here. 04/20/25 0806 <Electronically signed by Onelia QUINONES> Cosigner Signature (if applicable): CC: ~ Signed [facility] Work Phone: 1(280) 663-569908-22-2025 Progress note [facility] [address] [place] [address] Progress Note - Wound Care 04/19/25 1710 MR#: [id number] Acct: [id number] Name: CLAUDINE JOSEPH Rep #:[id number] : 1990 35 From: Onelia QUINONES PCP: Dr. Colette Goode MD Status: REG RCR Location: History of Present Illness Date of Service: 04/19/25 Chief Complaint: R buttock pressure ulceration History of Wound: Claudine Joseph is a 34 y/o female with cerebral palsy who is nonverbal and nonmobile, she has full care from her adoptive mother, Peg, who is present at her appointment today. She saw Jaimee to establish care at the [facility] last week; however, due to scheduling difficulties will be transitioning to my care. Peg tells me that she has had this ulceration to some extent for the past ~7 years. They have hadwound care previously at a different clinic close to their home but recently decided to change to seek a different approach. She reports around year 2 of the wound a wound vac was tried, but it sounds like there was difficulty maintaining good seal. She reports through the years they have consultedwith 4 different surgeons to consider surgical management but each time have opted to continue nonsurgical efforts. She reports that there has never been any known associated fistula; she has never seen any fecal matter or drainage in/around the wound. Patient does not have any history of diverticul itis/colocutaneous fistulas, pilonidal cysts or similar conditions. She reports no foul odor or thick/purulent drainage recently. She reports that Claudine has been on IV antibiotics for this ulceration in the past with PICC/midlines; there was consideration of a port but she was felt to be too highrisk for infection with this. 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 though no recent flares in the lastyear. She does have a low air loss mattress and robustpadding in her wheelchair but she is completely nonambulatory. She has a history of malnutrition (relies on feeding tube for nutrition), urine incontinence (she has a long-term sage catheter), fecal incontinence (averages 1 BM per day, Peg reports this is managed quickly to prevent soiling of the wound) iron deficiency anemia, and gall bladder and kidney issues per report. She is currently between PCPs but re-establishing care with an old PCP in April. At last visit here, Jaimee obtained wound cultures and started patient on Cefdinirx 2 weeks per sensitivity results. Peg states they just started these antibiotics yesterday, so far she seems to be tolerating them well. Subjective Subjective Unfortunately, she had adverse reaction to the cipro. Her mother reports that after 1 dose she developed a rash to her face, arms, and torso; she showed a picture with appeared consistent with drug-eruption with erythematous papular rash. She reports this improved with benadryl and hydrocortisone cream after a couple days. She stopped the cipro. She did receive the linezolid but has not started this yet. She does have an appointment with Dr. Krishnamurthy next Wednesday. She otherwise has not had any fevers or other signs of systemic infection. Unfortunately, there has also been difficulty with the wound vac. Nursing here has noted each time they go to remove it the seal is broken and the vac seems tohave been off for a while. Taking into consideration that the patient has to travel an hour to get here; mother does not it tends to lose seal almost any time she change position like getting her into the car. She does admit she is having to frequently reinforce it at home. Objective Data Objective Data Vital Signs: Vital Signs Temp Pulse Resp BP O2 Del Method 97.7 F L 106 H 14 108/75 Room Air 04/19/25 14:41 04/19/25 14:41 04/19/25 14:41 04/19/25 14:41 04/19/25 14:41 Oxygen Delivery Method Room Air Charges/Coding Procedures Integumentary 111xxx-113xx: [id number] Linda musc/fascia 20 sq cm/< Physical Exam Const alert Constitutional Narrative: Nonverbal Resp normal respiratory effort Resp Narrative: O2 supplementation via NC Skin Wound Narrative: R buttock pressure ulceration cluster; Distal ulcer in the cluster near coccyx with depth, taps to bone which is hard and viable in appearance; with probing noapparent tracking; do not appreciate anypurulent or feculent drainage; no surrounding excess warmth, fluctuance, induration; wound base appears granular and pink. Proximal cluster is more superficial into the subcutaneous tissue withpink/red base without significant drainage/excess warmth/fluctuance/induration. 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 Debridement Note Debridement Note Wound debrided: Decubitus ulcer right sacral Laterality: Right Wound Grade/Stage: Stage IV Type of Debridement: Excisional debridement Anesthesia Used: 5% Lidocaine Gel Depth: to muscle Percentage of wound debrided: 100 Instrument Used: 5mm curette Tissue Removed: Fibrin slough, devitalized tissue Severity: Fat Layer Exposed Amount of bleeding with debridement: Mild Bleeding Controlled with: Compression and gauze Patient tolerated procedure: Patient tolerated procedure well Post-Debridement Measurements and Additional Note: Post-Debridement Measurements/Treatment - Nurse 1 - General Ulcer Assessment Start: 03/30/25 13:28 Freq: Status: Active Protocol: ROYER Activity Type Activity Date Activity User E-sign Co-sign Detail Recorded Client Recorded Date Recorded By Document 04/05/25 13:24 DL [id number] 04/05/25 13:46 DL Document 04/12/25 13:50 KW [id number] 04/12/25 13:58 KW Document 04/19/25 14:41 KW [id number] 04/19/25 14:44 KW 04/05/25 04/12/25 04/19/25 13:24 13:50 14:41 - Today's Visit Information Type of service Follow-up Visit Follow-up Visit Follow-up Visit (Physician/DIRECTOR OF GLOBAL SALES (Physician/DIRECTOR OF GLOBAL SALES (Physician/DIRECTOR OF GLOBAL SALES ) ) ) Arrival Mode Wheelchair Wheelchair Wheelchair Transfer Assistance Slade Lift Slade Lift Slade Lift Transfer Assist (Other) x2 Accompanied by mother Patient Identification Verified (Name & Yes Yes Yes ) Patient Requires Transmission-Based No No Precautions Vital Signs Temperature (97.8 F-99.1 F) 98.7 F 98.1 F 97.7 F L Temperature Source Temporal Temporal Temporal Pulse Rate (60-100) 119 H 106 H 106 H Pulse Location Monitor Monitor Monitor Respiratory Rate (12-18) 18 16 14 Respiratory rate source Observation Observation Observation Oxygen Delivery Method Room Air Blood Pressure (90/60-120/80) 113/76 96/70 108/75 Blood Pressure Mean (mm Hg) 88 78 86 Source Monitor Monitor Monitor Position Sitting Blood Pressure Location Right Arm History Since Last Visit- (Skip if this is Patient's initial visit) Have you changed medications since your No No No last visit? Any new allergies or adverse reactions No No No Had a fall/change in ADL's that may No No No increase risk of falls Signs or symptoms of abuse and/or No No No neglect since last visit Have you been in the hospital since your No No No last visit? Has dressing in place as prescribed Yes Yes Yes Has compression in place as prescribed N/A N/A N/A Has offloadiing in place as prescribed Yes Yes N/A Experienced any changes in pain level or No No No management Left Footwear No Footwear Right Footwear No Footwear Pain Scale: 0-10 Numeric Is Patient Pain Free? Yes Yes Yes WC - Nurse 1 - General Ulcer Measurement Start: 03/30/25 13:28 Freq: Status: Active Protocol: Activity Type Activity Date Activity User E-sign Co-sign Detail Recorded Client Recorded Date Recorded By Document 04/05/25 13:24 DL [id number] 04/05/25 13:46 DL Document 04/12/25 13:50 KW [id number] 04/12/25 13:58 KW Document 04/19/25 14:41 KW [id number] 04/19/25 14:44 KW 04/05/25 04/12/25 04/19/25 13:24 13:50 14:41 Wound Center Nurse 1 #2- R BUTTOCK -Current Size (cm) - Length 2 2.5 2.2 -Current Size (cm) - Width 1.8 1.8 1.7 -Current Size (cm) - Depth 0.1 0.9 0.3 -Total Square Cm 3.6 4.50 3.74 -Photo Taken Yes -Exudate Amt Small Medium -Exudate Type Serosanguineous Serosanguineous Serosanguineous -Wound Margin Distinct, Thickened Thickened & Outline Rolled Under Attached -Granulation Amt Large (67-100%) Large (67-100%) -Granulation Quality [place] Red -Necrosis Amt Small (1-33%) Medium (34-66%) -Necrotic Tissue Type Adherent Slough Adherent Slough -Structure Exposed N/A N/A -Texture (Makenzie-wound Skin Appearance) Excoriation, Friable, Assessed Scarring Scarring -Moisture (Makenzie-wound Skin Appearance) No Abnormality No Abnormality Assessed -Color (Makenzie-wound Skin Appearance) No Abnormality No Abnormality Assessed -Temperature (Makenzie-wound Skin No Abnormality No Abnormality No Abnormality Appearance) (Pt Warm) (Pt Warm) (Pt Warm) -Tenderness on Palpation (Makenzie-wound No No Skin Appearance) -Ulcer Cleansing Soap and Water Soap and Water Soap and Water -Foul Odor after Cleansing No No No -Anesthetic Used 4% Lidocaine 5% Lidocaine 5% Lidocaine Solution Gel Gel #1 SACRAL -Current Size (cm) - Length 2.5 1 2 -Current Size (cm) - Width 3 2.5 2 -Current Size (cm) - Depth 2.8 3 2.8 -Total Square Cm 7.5 2.5 4 -Photo Taken Yes -Exudate Amt Small Medium Medium -Exudate Type Serosanguineous Serosanguineous Serosanguineous -Wound Margin Distinct, Distinct, Distinct, Outline Outline Outline Attached Attached Attached -Granulation Amt Large (67-100%) Medium (34-66%) Large (67-100%) -Granulation Quality Red Red Red -Necrosis Amt Small (1-33%) Medium (34-66%) -Necrotic Tissue Type Adherent Slough Adherent Slough -Structure Exposed N/A N/A -Texture (Makenzie-wound Skin Appearance) Excoriation, Friable, Assessed Scarring Scarring -Moisture (Makenzie-wound Skin Appearance) No Abnormality No Abnormality Assessed -Color (Makenzie-wound Skin Appearance) No Abnormality No Abnormality Assessed, Erythema -Temperature (Makenzie-wound Skin No Abnormality No Abnormality No Abnormality Appearance) (Pt Warm) (Pt Warm) (Pt Warm) -Tenderness on Palpation (Makenzie-wound No No Skin Appearance) -Ulcer Cleansing Soap and Water Soap and Water Soap and Water -Foul Odor after Cleansing No No No -Anesthetic Used 4% Lidocaine 5% Lidocaine 5% Lidocaine Solution Gel Gel WC - Nurse 2 - General Ulcer CM Notes Start: 03/30/25 13:28 Freq: Status: Active Protocol: Activity Type Activity Date Activity User E-sign Co-sign Detail Recorded Client Recorded Date Recorded By Document 04/05/25 13:52 [id number] 04/05/25 14:02 Document 04/12/25 14:05 [id number] 04/12/25 14:16 Document 04/19/25 15:08 [id number] 04/19/25 15:19 04/05/25 04/12/25 04/19/25 13:52 14:05 15:08 Wound Center Nurse 2 #2- R BUTTOCK -Time 13:52 14:06 15:08 -Correct Patient Yes Yes Yes -Correct Side, Site, Position Yes Yes Yes -Correct Procedure Yes Yes Yes -Procedure Performed Yes Yes Yes -Type of Procedure Debridement Debridement Debridement -Clinical Debridement Subcutaneous Muscle / Fascia Muscle / Fascia -Tissue Removed Subcutaneous Muscle Muscle -Post Debridement (cm) - Length 2.2 2.0 1.2 -Post Debridement (cm) - Width 3.0 2.4 2.8 -Post Debridement (cm) - Depth 0.4 0.6 1.0 -Total Square (Post) (cm) 6.60 4.80 3.36 -Area of Debridement (cm) - Length 2.2 2.0 1.2 -Area of Debridement (cm) - Width 3.0 2.4 2.8 -Total Square (Area) (cm) 6.60 4.80 3.36 -Tunneling No No No -Undermining/Tunneling No No No -Circular Undermining No No No -Wound/Ulcer Outcome Not Healed Not Healed Not Healed -Ulcer Cleansing Rinsed/ Rinsed/ Rinsed/ Irrigated with Irrigated with Irrigated with Saline Saline Saline -Foul Odor after Cleansing No No No -Bioengineered Tissue No No No -Bleeding Controlled with Pressure Pressure Pressure -Treatment Response Procedure Procedure Procedure Tolerated Well Tolerated Well Tolerated Well -Offloading No No No -Assistive Device(s) Wheelchair -Pressure Reduction Wheelchair cushion -Debridement - Subq, 1st 20sq cm No -Debridement - Muscle / Fascia, 1st No Yes 20sq cm #1 SACRAL -Time 13:53 14:06 15:18 -Correct Patient Yes Yes Yes -Correct Side, Site, Position Yes Yes Yes -Correct Procedure Yes Yes Yes -Procedure Performed Yes Yes Yes -Type of Procedure Debridement Debridement Debridement -Clinical Debridement Subcutaneous Muscle / Fascia Muscle / Fascia -Tissue Removed Subcutaneous Muscle Muscle -Post Debridement (cm) - Length 1.6 2.7 1.6 -Post Debridement (cm) - Width 1.8 1.6 1.5 -Post Debridement (cm) - Depth 3.2 2.6 2.8 -Total Square (Post) (cm) 2.88 4.32 2.40 -Area of Debridement (cm) - Length 1.6 2.7 1.6 -Area of Debridement (cm) - Width 1.8 1.6 1.5 -Total Square (Area) (cm) 2.88 4.32 2.40 -Tunneling No No No -Undermining/Tunneling No No No -Circular Undermining No No No -Wound/Ulcer Outcome Not Healed Not Healed Not Healed -Ulcer Cleansing Rinsed/ Rinsed/ Rinsed/ Irrigated with Irrigated with Irrigated with Saline Saline Saline -Foul Odor after Cleansing No No No -Bioengineered Tissue No No No -Bleeding Controlled with Pressure Pressure Pressure -Treatment Response Procedure Procedure Procedure Tolerated Well Tolerated Well Tolerated Well -Offloading No No No -Assistive Device(s) Wheelchair -Pressure Reduction Wheelchair cushion -Debridement - Subq, 1st 20sq cm Yes -Debridement - Muscle / Fascia, 1st Yes No 20sq cm Pain Scale: 0-10 Numeric Is Patient Pain Free? No Yes Yes Pain Scale: Adult NonVerbal Is Patient Pain Free? No Face Frequent Grimace, Tearing, Frowning, Wrinkled Forehead Activity (Movement) Restless, excessive activity and/or withdrawl reflexes Guarding Rigid, Stiff Physiology (Vital Signs) Stable Vital Signs Respiratory Baseline RR/ SpO2; Compliant with Ventilator Pain Intensity 6 Pain Aggravating Factors Debridement Alleviating Factors/Interventions Medication,Will continue to monitor, Emotional Support Comments Lidocaine used WC - Nurse 3 - General Ulcer D/C NN Start: 03/30/25 13:28 Freq: Status: Active Protocol: Activity Type Activity Date Activity User E-sign Co-sign Detail Recorded Client Recorded Date Recorded By Document 04/05/25 14:17 KW [id number] 04/05/25 14:31 KW Edit Result 04/05/25 14:17 KW (1) [id number] 04/11/25 15:41 KW Document 04/12/25 14:24 KW [id number] 04/12/25 14:47 KW Document 04/19/25 15:25 KW [id number] 04/19/25 15:26 KW (1) #2- R BUTTOCK - NPWT Application Charge NPWT & Debridement => NPWT > 50 sq cm ($ (nc) => ) 04/05/25 04/12/25 04/19/25 14:17 14:24 15:25 Wound Care Center Nurse 3 #2- R BUTTOCK -Negative Pressure Wound Therapy Continue -Pieces of Black Foam Inserted 5 1 -NPWT Application Charge NPWT > 50 sq cm NPWT & ($) Debridement (nc ) -Setting (mmHg) 125 -Negative Pressure is Continuous -Primary Dressing Applied Hysept -Other Dressing dakins soaked gauze -Primary Dressing Covered/Secured with Dry Gauze, Secured with Tape -Hysept 1 #1 SACRAL -Foul Odor after Cleansing Yes -Negative Pressure Wound Therapy Continue -Pieces of Black Foam Inserted 1 -NPWT Application Charge NPWT - Multiple NPWT - Multiple Locations Locations -Setting (mmHg) 125 -Negative Pressure is Continuous -Primary Dressing Applied Aquacel AG 4x4, Other -Other Dressing duoderm x2 dakins soaked gauze -Primary Dressing Covered/Secured with Dry Gauze, Secured with Tape -Aquacel AG 4x4 2 -Wound Comment(s) aquacel to excoriated area in fold, duoderm for the makenzie Pain Scale: 0-10 Numeric Is Patient Pain Free? Yes Yes Yes WC - Visit Discharge Discharge Condition Stable Stable Stable Ambulatory Status Wheelchair Wheelchair Wheelchair Transportation Private Auto Private Auto Private Auto Medication Reconcilliation completed & No No No provided to patient/care provider Clinical Summary of Care Provided Yes Yes Yes Additional Wound Wound debrided: Decubitus ulcer R gluteal Laterality: Right Type of Debridement: Excisional debridement Anesthesia Used: 4% Lidocaine Solution Depth: Down to and including healthy tissue and in the subcutaneous layer Percentage of wound debrided: 100 Instrument Used: 5mm curette Tissue Removed: slough, devitalized tissue Severity: Fat Layer Exposed Amount of bleeding with debridement: Mild Bleeding Controlled with: Pressure Assessment/Plan Assessment/Plan (1) Decubitus ulcer of right buttock, stage 4: CODE(S): L89.314 - Pressure ulcer of right buttock, 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: CODE(S): G80.8 - Other cerebral palsy (3) Incontinence of urine: CODE(S): R32 - Unspecified urinary incontinence QUALIFIERS: Urinary Incontinence type: continuous leakage Qualified Code(s): N39.45 - Continuous leakage (4) Fecal incontinence: CODE(S): R15.9 - Full incontinence of feces QUALIFIERS: Fecal incontinence type: unspecified Qualified Code(s): R15.9 - Full incontinence of feces (5) Malnutrition: CODE(S): E46 - Unspecified protein-calorie malnutrition QUALIFIERS: Malnutrition type: protein-calorie malnutrition Protein-calorie malnutrition severity: moderate Qualified Code(s): E44.0 - Moderate protein- calorie malnutrition (6) Decubitus ulcer of sacral area: CODE(S): L89.159 - Pressure ulcer of sacral region, unspecified stage QUALIFIERS: Pressure injury stage: stage 4 Qualified Code(s): L89.154 - Pressure ulcer of sacral region, stage 4 PLAN: Plan Updated wound culture 03/29/25 had rare growth of enterococcus faecalis and avium, corynebacterium striatum (contaminant), pseudomonas aeruginosa, proteus mirabilis, klebsiella aerogenes, prevotella bivia, and unspecified anaerobic species. Patient's mother reports she only ever sees improvement with IV antibiotics; given multi-species growth and patient's complexity and tapping to bone with question for osteo will refer to ID for further recommendations. In the meantime, I did review with [facility] inpatient pharmacy to determine oral antibiotic regimen that would be compatible with PEG tube. Will require a regimen of Cipro, Flagyl, and Linezolid to address the various bacteria; however, with herhistory of reactions feel it would be best to initiate one antibiotic at a time and her mother is in agreement. Cipro was sent last week, unfortunately after 1 dose she had what appears to have been a drug-eruption rash so this was discontinued. Her mother did bean picker the Linezolid but has not started this. At this point, with ID consult next week will hold off on initiating further antibiotics and await their recommendations. Will discontinue wound vac given issues with maintaining consistent seal; will return to packing with dakins-soaked gauze changed twice daily or more often as needed if it becomes soiled. Continue Blayne supplementation. Continue offloading efforts with frequent turns,at least every 2 hours. She is coming in next Wednesday to see ID Dr. Krishnamurthy so will skip appt; I am out the following week so will arrange a courtesy visit with another provider here. 04/20/25 0806 Cosigner Signature (if applicable): CC: ~ Signed [facility]08-14-2025 Progress note Author Onelia Gaspar [facility] Note Date/Time 2025 2: 40pm [facility] [address] [place] [address] Progress Note - Wound Care 04/12/25 1435 MR#: [id number] Acct: [id number] Name: CLAUDINE JOSEPH Rep #:[id number] : 1990 35 From: Onelia QUINONES PCP: Dr. Colette Goode MD Status: REG RCR Location: History of Present Illness Date of Service: 04/12/25 Chief Complaint: R buttock pressure ulceration History of Wound: Claudine Joseph is a 34 y/o female with cerebral palsy who is nonverbal and nonmobile, she has full care from her adoptive mother, Peg, who is present at her appointment today. She saw Jaimee to establish care at the [facility] last week; however, due to scheduling difficulties will be transitioning to my care. Peg tells me that she has had this ulceration to some extent for the past ~7 years. They have had wound care previously at a different clinic close to their home but recently decided to change to seek a different approach. She reports around year 2 of the wound a wound vac was tried, but it sounds like there was difficulty maintaining good seal. She reports through the years they have consulted with 4 different surgeons to consider surgical management but each time have opted to continue nonsurgical efforts. She reports that there has never been any known associated fistula; she has never seen any fecal matter or drainage in/around the wound. Patient does not have any history of diverticulitis/colocutaneous fistulas, pilonidal cysts or similar conditions. She reports no foul odor or thick/purulent drainage recently. She reports that Claudine has been on IV antibiotics for this ulceration in the past with PICC/midlines; there was consideration of a port but she was felt to be too highrisk for infection with this. 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 though no recent flares in the last year. She does have a low air loss mattress and robustpadding in her wheelchair but she is completely nonambulatory. She has a history of malnutrition (relies on feeding tube for nutrition), urine incontinence (she has a long-term sage catheter), fecal incontinence (averages 1 BM per day, Peg reports this is managed quickly to prevent soiling of the wound) iron deficiency anemia, and gall bladder and kidney issues per report. She is currently between PCPs but re-establishing care with an old PCP in April. At last visit here, Jaimee obtained wound cultures and started patient on Cefdinirx 2 weeks per sensitivity results. Peg states they just started these antibiotics yesterday, so far she seems to be tolerating them well. Subjective Subjective Claudine appears better this week compared to last, her mother reports she has seemed more comfortable. She seems to be tolerating the wound vac well and they are able to perform the changes well. She did go to the ER this past Wednesday; had a CT which did not show any evidence of osteomyelitis which was reassuring. She just picked up the Cipro oral solution today so she has not started this yet; there was a delay due to insurance issues. She still does not have an appt with ID; spoke to the ID office and they had not received the fax, this was sent again. Objective Data Objective Data Vital Signs: Vital Signs Temp Pulse Resp BP 98.1 F 106 H 16 96/70 04/12/25 13:50 04/12/25 13:50 04/12/25 13:50 04/12/25 13:50 Charges/Coding Procedures Integumentary 111xxx-113xx: [id number] Linda musc/fascia 20 sq cm/< Physical Exam Const alert Constitutional Narrative: Nonverbal Resp normal respiratory effort Resp Narrative: O2 supplementation via NC Skin Wound Narrative: R buttock pressure ulceration cluster; Distal ulcer in the cluster near coccyx with depth, taps to bone which is hard and viable in appearance; with probing noapparent tracking; do not appreciate any foul odor, purulent or feculent drainage; no surrounding excess warmth, fluctuance, induration; wound base appears granular and pink. Proximal cluster is more superficial into the subcutaneous tissue with pink/red base without significant drainage/excess warmth/fluctuance/induration. 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 Debridement Note Debridement Note Wound debrided: Decubitus ulcer right sacral Laterality: Right Wound Grade/Stage: Stage IV Type of Debridement: Excisional debridement Anesthesia Used: 5% Lidocaine Gel Depth: to muscle Percentage of wound debrided: 100 Instrument Used: 5mm curette Tissue Removed: Fibrin slough, devitalized tissue Severity: Fat Layer Exposed Amount of bleeding with debridement: Mild Bleeding Controlled with: Compression and gauze Patient tolerated procedure: Patient tolerated procedure well Post-Debridement Measurements and Additional Note: Post-Debridement Measurements/Treatment CAROL - Nurse 1 - General Ulcer Assessment Start: 03/30/25 13:28 Freq: Status: Active Protocol: ROYER Activity Type Activity Date Activity User E-sign Co-sign Detail Recorded Client Recorded Date Recorded By Document 04/05/25 13:24 DL [id number] 04/05/25 13:46 DL Document 04/12/25 13:50 KW [id number] 04/12/25 13:58 KW 04/05/25 04/12/25 13:24 13:50 CAROL - Today's Visit Information Type of service Follow-up Visit Follow-up Visit (Physician/DIRECTOR OF GLOBAL SALES (Physician/DIRECTOR OF GLOBAL SALES ) ) Arrival Mode Wheelchair Wheelchair Transfer Assistance Slade Lift Slade Lift Transfer Assist (Other) x2 Patient Identification Verified (Name & Yes Yes ) Patient Requires Transmission-Based No No Precautions Vital Signs Temperature (97.8 F-99.1 F) 98.7 F 98.1 F Temperature Source Temporal Temporal Pulse Rate (60-100) 119 H 106 H Pulse Location Monitor Monitor Respiratory Rate (12-18) 18 16 Respiratory rate source Observation Observation Blood Pressure (90/60-120/80) 113/76 96/70 Blood Pressure Mean (mm Hg) 88 78 Source Monitor Monitor History Since Last Visit- (Skip if this is Patient's initial visit) Have you changed medications since your No No last visit? Any new allergies or adverse reactions No No Had a fall/change in ADL's that may No No increase risk of falls Signs or symptoms of abuse and/or No No neglect since last visit Have you been in the hospital since your No No last visit? Has dressing in place as prescribed Yes Yes Has compression in place as prescribed N/A N/A Has offloadiing in place as prescribed Yes Yes Experienced any changes in pain level or No No management Pain Scale: 0-10 Numeric Is Patient Pain Free? Yes Yes CAROL - Nurse 1 - General Ulcer Measurement Start: 03/30/25 13:28 Freq: Status: Active Protocol: Activity Type Activity Date Activity User E-sign Co-sign Detail Recorded Client Recorded Date Recorded By Document 04/05/25 13:24 DL [id number] 04/05/25 13:46 DL Document 04/12/25 13:50 KW [id number] 04/12/25 13:58 KW 04/05/25 04/12/25 13:24 13:50 Wound Center Nurse 1 #2- R BUTTOCK -Current Size (cm) - Length 2 2.5 -Current Size (cm) - Width 1.8 1.8 -Current Size (cm) - Depth 0.1 0.9 -Total Square Cm 3.6 4.50 -Photo Taken Yes -Exudate Amt Small -Exudate Type Serosanguineous Serosanguineous -Wound Margin Distinct, Thickened Outline Attached -Granulation Amt Large (67-100%) -Granulation Quality [place] -Necrosis Amt Small (1-33%) Medium (34-66%) -Necrotic Tissue Type Adherent Slough Adherent Slough -Structure Exposed N/A N/A -Texture (Makenzie-wound Skin Appearance) Excoriation, Friable, Scarring Scarring -Moisture (Makenzie-wound Skin Appearance) No Abnormality No Abnormality -Color (Makenzie-wound Skin Appearance) No Abnormality No Abnormality -Temperature (Makenzie-wound Skin No Abnormality No Abnormality Appearance) (Pt Warm) (Pt Warm) -Tenderness on Palpation (Makenzie-wound No Skin Appearance) -Ulcer Cleansing Soap and Water Soap and Water -Foul Odor after Cleansing No No -Anesthetic Used 4% Lidocaine 5% Lidocaine Solution Gel #1 SACRAL -Current Size (cm) - Length 2.5 1 -Current Size (cm) - Width 3 2.5 -Current Size (cm) - Depth 2.8 3 -Total Square Cm 7.5 2.5 -Photo Taken Yes -Exudate Amt Small Medium -Exudate Type Serosanguineous Serosanguineous -Wound Margin Distinct, Distinct, Outline Outline Attached Attached -Granulation Amt Large (67-100%) Medium (34-66%) -Granulation Quality Red Red -Necrosis Amt Small (1-33%) Medium (34-66%) -Necrotic Tissue Type Adherent Slough Adherent Slough -Structure Exposed N/A N/A -Texture (Makenzie-wound Skin Appearance) Excoriation, Friable, Scarring Scarring -Moisture (Makenzie-wound Skin Appearance) No Abnormality No Abnormality -Color (Makenzie-wound Skin Appearance) No Abnormality No Abnormality -Temperature (Makenzie-wound Skin No Abnormality No Abnormality Appearance) (Pt Warm) (Pt Warm) -Tenderness on Palpation (Makenzie-wound No Skin Appearance) -Ulcer Cleansing Soap and Water Soap and Water -Foul Odor after Cleansing No No -Anesthetic Used 4% Lidocaine 5% Lidocaine Solution Gel WC - Nurse 2 - General Ulcer CM Notes Start: 03/30/25 13:28 Freq: Status: Active Protocol: Activity Type Activity Date Activity User E-sign Co-sign Detail Recorded Client Recorded Date Recorded By Document 04/05/25 13:52 [id number] 04/05/25 14:02 Document 04/12/25 14:05 [id number] 04/12/25 14:16 04/05/25 04/12/25 13:52 14:05 Wound Center Nurse 2 #2- R BUTTOCK -Time 13:52 14:06 -Correct Patient Yes Yes -Correct Side, Site, Position Yes Yes -Correct Procedure Yes Yes -Procedure Performed Yes Yes -Type of Procedure Debridement Debridement -Clinical Debridement Subcutaneous Muscle / Fascia -Tissue Removed Subcutaneous Muscle -Post Debridement (cm) - Length 2.2 2.0 -Post Debridement (cm) - Width 3.0 2.4 -Post Debridement (cm) - Depth 0.4 0.6 -Total Square (Post) (cm) 6.60 4.80 -Area of Debridement (cm) - Length 2.2 2.0 -Area of Debridement (cm) - Width 3.0 2.4 -Total Square (Area) (cm) 6.60 4.80 -Tunneling No No -Undermining/Tunneling No No -Circular Undermining No No -Wound/Ulcer Outcome Not Healed Not Healed -Ulcer Cleansing Rinsed/ Rinsed/ Irrigated with Irrigated with Saline Saline -Foul Odor after Cleansing No No -Bioengineered Tissue No No -Bleeding Controlled with Pressure Pressure -Treatment Response Procedure Procedure Tolerated Well Tolerated Well -Offloading No No -Assistive Device(s) Wheelchair -Pressure Reduction Wheelchair cushion -Debridement - Subq, 1st 20sq cm No -Debridement - Muscle / Fascia, 1st No 20sq cm #1 SACRAL -Time 13:53 14:06 -Correct Patient Yes Yes -Correct Side, Site, Position Yes Yes -Correct Procedure Yes Yes -Procedure Performed Yes Yes -Type of Procedure Debridement Debridement -Clinical Debridement Subcutaneous Muscle / Fascia -Tissue Removed Subcutaneous Muscle -Post Debridement (cm) - Length 1.6 2.7 -Post Debridement (cm) - Width 1.8 1.6 -Post Debridement (cm) - Depth 3.2 2.6 -Total Square (Post) (cm) 2.88 4.32 -Area of Debridement (cm) - Length 1.6 2.7 -Area of Debridement (cm) - Width 1.8 1.6 -Total Square (Area) (cm) 2.88 4.32 -Tunneling No No -Undermining/Tunneling No No -Circular Undermining No No -Wound/Ulcer Outcome Not Healed Not Healed -Ulcer Cleansing Rinsed/ Rinsed/ Irrigated with Irrigated with Saline Saline -Foul Odor after Cleansing No No -Bioengineered Tissue No No -Bleeding Controlled with Pressure Pressure -Treatment Response Procedure Procedure Tolerated Well Tolerated Well -Offloading No No -Assistive Device(s) Wheelchair -Pressure Reduction Wheelchair cushion -Debridement - Subq, 1st 20sq cm Yes -Debridement - Muscle / Fascia, 1st Yes 20sq cm Pain Scale: 0-10 Numeric Is Patient Pain Free? No Yes Pain Scale: Adult NonVerbal Is Patient Pain Free? No Face Frequent Grimace, Tearing, Frowning, Wrinkled Forehead Activity (Movement) Restless, excessive activity and/or withdrawl reflexes Guarding Rigid, Stiff Physiology (Vital Signs) Stable Vital Signs Respiratory Baseline RR/ SpO2; Compliant with Ventilator Pain Intensity 6 Pain Aggravating Factors Debridement Alleviating Factors/Interventions Medication,Will continue to monitor, Emotional Support Comments Lidocaine used WC - Nurse 3 - General Ulcer D/C NN Start: 03/30/25 13:28 Freq: Status: Active Protocol: Activity Type Activity Date Activity User E-sign Co-sign Detail Recorded Client Recorded Date Recorded By Document 04/05/25 14:17 KW [id number] 04/05/25 14:31 KW Edit Result 04/05/25 14:17 KW (1) [id number] 04/11/25 15:41 KW (1) #2- R BUTTOCK - NPWT Application Charge NPWT & Debridement => NPWT > 50 sq cm ($ (nc) => ) 04/05/25 14:17 Wound Care Center Nurse 3 #2- R BUTTOCK -Negative Pressure Wound Therapy Continue -Pieces of Black Foam Inserted 5 -NPWT Application Charge NPWT > 50 sq cm ($) -Setting (mmHg) 125 -Negative Pressure is Continuous #1 SACRAL -Foul Odor after Cleansing Yes -Negative Pressure Wound Therapy Continue -NPWT Application Charge NPWT - Multiple Locations -Setting (mmHg) 125 -Negative Pressure is Continuous Pain Scale: 0-10 Numeric Is Patient Pain Free? Yes WC - Visit Discharge Discharge Condition Stable Ambulatory Status Wheelchair Transportation Private Auto Medication Reconcilliation completed & No provided to patient/care provider Clinical Summary of Care Provided Yes Additional Wound Wound debrided: Decubitus ulcer R gluteal Laterality: Right Type of Debridement: Excisional debridement Anesthesia Used: 4% Lidocaine Solution Depth: Down to and including healthy tissue and in the subcutaneous layer Percentage of wound debrided: 100 Instrument Used: 5mm curette Tissue Removed: slough, devitalized tissue Severity: Fat Layer Exposed Amount of bleeding with debridement: Mild Bleeding Controlled with: Pressure Assessment/Plan Assessment/Plan (1) Decubitus ulcer of right buttock, stage 4: CODE(S): L89.314 - Pressure ulcer of right buttock, 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: CODE(S): G80.8 - Other cerebral palsy (3) Incontinence of urine: CODE(S): R32 - Unspecified urinary incontinence QUALIFIERS: Urinary Incontinence type: continuous leakage Qualified Code(s): N39.45 - Continuous leakage (4) Fecal incontinence: CODE(S): R15.9 - Full incontinence of feces QUALIFIERS: Fecal incontinence type: unspecified Qualified Code(s): R15.9 - Full incontinence of feces (5) Malnutrition: CODE(S): E46 - Unspecified protein-calorie malnutrition QUALIFIERS: Malnutrition type: protein-calorie malnutrition Protein-calorie malnutrition severity: moderate Qualified Code(s): E44.0 - Moderate protein- calorie malnutrition (6) Decubitus ulcer of sacral area: CODE(S): L89.159 - Pressure ulcer of sacral region, unspecified stage QUALIFIERS: Pressure injury stage: stage 4 Qualified Code(s): L89.154 - Pressure ulcer of sacral region, stage 4 PLAN: Plan Updated wound culture 03/29/25 had rare growth of enterococcus faecalis and avium, corynebacterium striatum (contaminant), pseudomonas aeruginosa, proteus mirabilis, klebsiella aerogenes, prevotella bivia, and unspecified anaerobic species. Patient's mother reports she only ever sees improvement with IV antibiotics; given multi-species growth and patient's complexity and tapping to bone with question for osteo will refer to ID for further recommendations. In the meantime, I did review with [facility] inpatient pharmacy to determine oral antibiotic regimen that would be compatible with PEG tube. Will require a regimen of Cipro, Flagyl, and Linezolid to address the various bacteria; however, with her history of reactions feel it would be best to initiate one antibiotic at a time and her mother is in agreement. Cipro was sent last week, she just received today and has not started it. Will start Cipro today and monitor for adverse reaction over the next 5-7 days before starting Linezolid. Iwill send Linezolid Rx now so hopefully it will be ready for bean picker by time sheis ready for it. For wound care continue will continue with wound vac application at 125 mmHg as tolerated; if it is felt the vac is source of discomfort could decrease pressureto 100 mmHg. Wound vac is to be changed 3 times weekly, once here and twice at home. With vac changes, do a 30 minute Dakins soak by soaking gauze in Dakins and packing into wound; afterward, reapply vac. She does have an area of skin breakdown on the edge of the vac dressing, will apply hydrocolloid patch over this area with vac changes to protect. Continue Blayne supplementation. Continue offloading efforts with frequent turns,at least every 2 hours. Plan for return to the office in 1 week, call sooner with concerns. 04/12/25 1440 <Electronically signed by Onelia QUINONES> Cosigner Signature (if applicable): CC: ~ Signed [facility] Work Phone: [phone] Progress note [facility] [address] [place] [address] Progress Note - Wound Care 04/12/25 1435 MR#: [id number] Acct: [id number] Name: CLAUDINE JOSEPH Rep #:[id number] : 1990 35 From: Onelia QUINONES PCP: Dr. Colette Goode MD Status: REG RCR Location: History of Present Illness Date of Service: 04/12/25 Chief Complaint: R buttock pressure ulceration History of Wound: Claudine Joseph is a 34 y/o female with cerebral palsy who is nonverbal and nonmobile, she has full care from her adoptive mother, Peg, who is present at her appointment today. She saw Jaimee to establish care at the [facility] last week; however, due to scheduling difficulties will be transitioning to my care. Peg tells me that she has had this ulceration to some extent for the past ~7 years. They have hadwound care previously at a different clinic close to their home but recently decided to change to seek a different approach. She reports around year 2 of the wound a wound vac was tried, but it sounds like there was difficulty maintaining good seal. She reports through the years they have consultedwith 4 different surgeons to consider surgical management but each time have opted to continue nonsurgical efforts. She reports that there has never been any known associated fistula; she has never seen any fecal matter or drainage in/around the wound. Patient does not have any history of diverticul itis/colocutaneous fistulas, pilonidal cysts or similar conditions. She reports no foul odor or thick/purulent drainage recently. She reports that Claudine has been on IV antibiotics for this ulceration in the past with PICC/midlines; there was consideration of a port but she was felt to be too highrisk for infection with this. 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 though no recent flares in the lastyear. She does have a low air loss mattress and robustpadding in her wheelchair but she is completely nonambulatory. She has a history of malnutrition (relies on feeding tube for nutrition), urine incontinence (she has a long-term sage catheter), fecal incontinence (averages 1 BM per day, Peg reports this is managed quickly to prevent soiling of the wound) iron deficiency anemia, and gall bladder and kidney issues per report. She is currently between PCPs but re-establishing care with an old PCP in April. At last visit here, Jaimee obtained wound cultures and started patient on Cefdinirx 2 weeks per sensitivity results. Peg states they just started these antibiotics yesterday, so far she seems to be tolerating them well. Subjective Subjective Claudine appears better this week compared to last, her mother reports she has seemed more comfortable. She seems to be tolerating the wound vac well and they are able to perform the changes well. She did go to the ER this past Wednesday; had a CT which did not show any evidence of osteomyelitis which was reassuring. She just picked up the Cipro oral solution today so she has not started this yet; there was a delay due to insurance issues. She still does not have an appt with ID; spoke to theID office and they had not received the fax, this was sent again. Objective Data Objective Data Vital Signs: Vital Signs Temp Pulse Resp BP 98.1 F 106 H 16 96/70 04/12/25 13:50 04/12/25 13:50 04/12/25 13:50 04/12/25 13:50 Charges/Coding Procedures Integumentary [id number]: [id number] Linda musc/fascia 20 sq cm/< Physical Exam Const alert Constitutional Narrative: Nonverbal Resp normal respiratory effort Resp Narrative: O2 supplementation via NC Skin Wound Narrative: R buttock pressure ulceration cluster; Distal ulcer in the cluster near coccyx with depth, taps to bone which is hard and viable in appearance; with probing noapparent tracking; do not appreciate anyfoul odor, purulent or feculent drainage; no surrounding excess warmth, fluctuance, induration; wound base appears granular and pink. Proximal cluster is more superficial into the subcutaneous tissuewith pink/red base without significant drainage/excess warmth/fluctuance/induration. 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 Debridement Note Debridement Note Wound debrided: Decubitus ulcer right sacral Laterality: Right Wound Grade/Stage: Stage IV Type of Debridement: Excisional debridement Anesthesia Used: 5% Lidocaine Gel Depth: to muscle Percentage of wound debrided: 100 Instrument Used: 5mm curette Tissue Removed: Fibrin slough, devitalized tissue Severity: Fat Layer Exposed Amount of bleeding with debridement: Mild Bleeding Controlled with: Compression and gauze Patient tolerated procedure: Patient tolerated procedure well Post-Debridement Measurements and Additional Note: Post-Debridement Measurements/Treatment WC - Nurse 1 - General Ulcer Assessment Start: 03/30/25 13:28 Freq: Status: Active Protocol: ROYER Activity Type Activity Date Activity User E-sign Co-sign Detail Recorded Client Recorded Date Recorded By Document 04/05/25 13:24 DL [id number] 04/05/25 13:46 DL Document 04/12/25 13:50 KW [id number] 04/12/25 13:58 KW 04/05/25 04/12/25 13:24 13:50 - Today's Visit Information Type of service Follow-up Visit Follow-up Visit (Physician/DIRECTOR OF GLOBAL SALES (Physician/DIRECTOR OF GLOBAL SALES ) ) Arrival Mode Wheelchair Wheelchair Transfer Assistance Slade Lift Slade Lift Transfer Assist (Other) x2 Patient Identification Verified (Name & Yes Yes ) Patient Requires Transmission-Based No No Precautions Vital Signs Temperature (97.8 F-99.1 F) 98.7 F 98.1 F Temperature Source Temporal Temporal Pulse Rate (60-100) 119 H 106 H Pulse Location Monitor Monitor Respiratory Rate (12-18) 18 16 Respiratory rate source Observation Observation Blood Pressure (90/60-120/80) 113/76 96/70 Blood Pressure Mean (mm Hg) 88 78 Source Monitor Monitor History Since Last Visit- (Skip if this is Patient's initial visit) Have you changed medications since your No No last visit? Any new allergies or adverse reactions No No Had a fall/change in ADL's that may No No increase risk of falls Signs or symptoms of abuse and/or No No neglect since last visit Have you been in the hospital since your No No last visit? Has dressing in place as prescribed Yes Yes Has compression in place as prescribed N/A N/A Has offloadiing in place as prescribed Yes Yes Experienced any changes in pain level or No No management Pain Scale: 0-10 Numeric Is Patient Pain Free? Yes Yes - Nurse 1 - General Ulcer Measurement Start: 03/30/25 13:28 Freq: Status: Active Protocol: Activity Type Activity Date Activity User E-sign Co-sign Detail Recorded Client Recorded Date Recorded By Document 04/05/25 13:24 DL [id number] 04/05/25 13:46 Document 04/12/25 13:50 KW [id number] 04/12/25 13:58 04/05/25 04/12/25 13:24 13:50 Wound Center Nurse 1 #2- R BUTTOCK -Current Size (cm) - Length 2 2.5 -Current Size (cm) - Width 1.8 1.8 -Current Size (cm) - Depth 0.1 0.9 -Total Square Cm 3.6 4.50 -Photo Taken Yes -Exudate Amt Small -Exudate Type Serosanguineous Serosanguineous -Wound Margin Distinct, Thickened Outline Attached -Granulation Amt Large (67-100%) -Granulation Quality [place] -Necrosis Amt Small (1-33%) Medium (34-66%) -Necrotic Tissue Type Adherent Slough Adherent Slough -Structure Exposed N/A N/A -Texture (Makenzie-wound Skin Appearance) Excoriation, Friable, Scarring Scarring -Moisture (Makenzie-wound Skin Appearance) No Abnormality No Abnormality -Color (Makenzie-wound Skin Appearance) No Abnormality No Abnormality -Temperature (Makenzie-wound Skin No Abnormality No Abnormality Appearance) (Pt Warm) (Pt Warm) -Tenderness on Palpation (Makenzie-wound No Skin Appearance) -Ulcer Cleansing Soap and Water Soap and Water -Foul Odor after Cleansing No No -Anesthetic Used 4% Lidocaine 5% Lidocaine Solution Gel #1 SACRAL -Current Size (cm) - Length 2.5 1 -Current Size (cm) - Width 3 2.5 -Current Size (cm) - Depth 2.8 3 -Total Square Cm 7.5 2.5 -Photo Taken Yes -Exudate Amt Small Medium -Exudate Type Serosanguineous Serosanguineous -Wound Margin Distinct, Distinct, Outline Outline Attached Attached -Granulation Amt Large (67-100%) Medium (34-66%) -Granulation Quality Red Red -Necrosis Amt Small (1-33%) Medium (34-66%) -Necrotic Tissue Type Adherent Slough Adherent Slough -Structure Exposed N/A N/A -Texture (Makenzie-wound Skin Appearance) Excoriation, Friable, Scarring Scarring -Moisture (Makenzie-wound Skin Appearance) No Abnormality No Abnormality -Color (Makenzie-wound Skin Appearance) No Abnormality No Abnormality -Temperature (Makenzie-wound Skin No Abnormality No Abnormality Appearance) (Pt Warm) (Pt Warm) -Tenderness on Palpation (Makenzie-wound No Skin Appearance) -Ulcer Cleansing Soap and Water Soap and Water -Foul Odor after Cleansing No No -Anesthetic Used 4% Lidocaine 5% Lidocaine Solution Gel WC - Nurse 2 - General Ulcer CM Notes Start: 03/30/25 13:28 Freq: Status: Active Protocol: Activity Type Activity Date Activity User E-sign Co-sign Detail Recorded Client Recorded Date Recorded By Document 04/05/25 13:52 [id number] 04/05/25 14:02 Document 04/12/25 14:05 [id number] 04/12/25 14:16 04/05/25 04/12/25 13:52 14:05 Wound Center Nurse 2 #2- R BUTTOCK -Time 13:52 14:06 -Correct Patient Yes Yes -Correct Side, Site, Position Yes Yes -Correct Procedure Yes Yes -Procedure Performed Yes Yes -Type of Procedure Debridement Debridement -Clinical Debridement Subcutaneous Muscle / Fascia -Tissue Removed Subcutaneous Muscle -Post Debridement (cm) - Length 2.2 2.0 -Post Debridement (cm) - Width 3.0 2.4 -Post Debridement (cm) - Depth 0.4 0.6 -Total Square (Post) (cm) 6.60 4.80 -Area of Debridement (cm) - Length 2.2 2.0 -Area of Debridement (cm) - Width 3.0 2.4 -Total Square (Area) (cm) 6.60 4.80 -Tunneling No No -Undermining/Tunneling No No -Circular Undermining No No -Wound/Ulcer Outcome Not Healed Not Healed -Ulcer Cleansing Rinsed/ Rinsed/ Irrigated with Irrigated with Saline Saline -Foul Odor after Cleansing No No -Bioengineered Tissue No No -Bleeding Controlled with Pressure Pressure -Treatment Response Procedure Procedure Tolerated Well Tolerated Well -Offloading No No -Assistive Device(s) Wheelchair -Pressure Reduction Wheelchair cushion -Debridement - Subq, 1st 20sq cm No -Debridement - Muscle / Fascia, 1st No 20sq cm #1 SACRAL -Time 13:53 14:06 -Correct Patient Yes Yes -Correct Side, Site, Position Yes Yes -Correct Procedure Yes Yes -Procedure Performed Yes Yes -Type of Procedure Debridement Debridement -Clinical Debridement Subcutaneous Muscle / Fascia -Tissue Removed Subcutaneous Muscle -Post Debridement (cm) - Length 1.6 2.7 -Post Debridement (cm) - Width 1.8 1.6 -Post Debridement (cm) - Depth 3.2 2.6 -Total Square (Post) (cm) 2.88 4.32 -Area of Debridement (cm) - Length 1.6 2.7 -Area of Debridement (cm) - Width 1.8 1.6 -Total Square (Area) (cm) 2.88 4.32 -Tunneling No No -Undermining/Tunneling No No -Circular Undermining No No -Wound/Ulcer Outcome Not Healed Not Healed -Ulcer Cleansing Rinsed/ Rinsed/ Irrigated with Irrigated with Saline Saline -Foul Odor after Cleansing No No -Bioengineered Tissue No No -Bleeding Controlled with Pressure Pressure -Treatment Response Procedure Procedure Tolerated Well Tolerated Well -Offloading No No -Assistive Device(s) Wheelchair -Pressure Reduction Wheelchair cushion -Debridement - Subq, 1st 20sq cm Yes -Debridement - Muscle / Fascia, 1st Yes 20sq cm Pain Scale: 0-10 Numeric Is Patient Pain Free? No Yes Pain Scale: Adult NonVerbal Is Patient Pain Free? No Face Frequent Grimace, Tearing, Frowning, Wrinkled Forehead Activity (Movement) Restless, excessive activity and/or withdrawl reflexes Guarding Rigid, Stiff Physiology (Vital Signs) Stable Vital Signs Respiratory Baseline RR/ SpO2; Compliant with Ventilator Pain Intensity 6 Pain Aggravating Factors Debridement Alleviating Factors/Interventions Medication,Will continue to monitor, Emotional Support Comments Lidocaine used - Nurse 3 - General Ulcer D/C NN Start: 03/30/25 13:28 Freq: Status: Active Protocol: Activity Type Activity Date Activity User E-sign Co-sign Detail Recorded Client Recorded Date Recorded By Document 04/05/25 14:17 KW [id number] 04/05/25 14:31 KW Edit Result 04/05/25 14:17 KW (1) [id number] 04/11/25 15:41 KW (1) #2- R BUTTOCK - NPWT Application Charge NPWT & Debridement => NPWT > 50 sq cm ($ (nc) => ) 04/05/25 14:17 Wound Care Center Nurse 3 #2- R BUTTOCK -Negative Pressure Wound Therapy Continue -Pieces of Black Foam Inserted 5 -NPWT Application Charge NPWT > 50 sq cm ($) -Setting (mmHg) 125 -Negative Pressure is Continuous #1 SACRAL -Foul Odor after Cleansing Yes -Negative Pressure Wound Therapy Continue -NPWT Application Charge NPWT - Multiple Locations -Setting (mmHg) 125 -Negative Pressure is Continuous Pain Scale: 0-10 Numeric Is Patient Pain Free? Yes WC - Visit Discharge Discharge Condition Stable Ambulatory Status Wheelchair Transportation Private Auto Medication Reconcilliation completed & No provided to patient/care provider Clinical Summary of Care Provided Yes Additional Wound Wound debrided: Decubitus ulcer R gluteal Laterality: Right Type of Debridement: Excisional debridement Anesthesia Used: 4% Lidocaine Solution Depth: Down to and including healthy tissue and in the subcutaneous layer Percentage of wound debrided: 100 Instrument Used: 5mm curette Tissue Removed: slough, devitalized tissue Severity: Fat Layer Exposed Amount of bleeding with debridement: Mild Bleeding Controlled with: Pressure Assessment/Plan Assessment/Plan (1) Decubitus ulcer of right buttock, stage 4: CODE(S): L89.314 - Pressure ulcer of right buttock, 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: CODE(S): G80.8 - Other cerebral palsy (3) Incontinence of urine: CODE(S): R32 - Unspecified urinary incontinence QUALIFIERS: Urinary Incontinence type: continuous leakage Qualified Code(s): N39.45 - Continuous leakage (4) Fecal incontinence: CODE(S): R15.9 - Full incontinence of feces QUALIFIERS: Fecal incontinence type: unspecified Qualified Code(s): R15.9 - Full incontinence of feces (5) Malnutrition: CODE(S): E46 - Unspecified protein-calorie malnutrition QUALIFIERS: Malnutrition type: protein-calorie malnutrition Protein-calorie malnutrition severity: moderate Qualified Code(s): E44.0 - Moderate protein- calorie malnutrition (6) Decubitus ulcer of sacral area: CODE(S): L89.159 - Pressure ulcer of sacral region, unspecified stage QUALIFIERS: Pressure injury stage: stage 4 Qualified Code(s): L89.154 - Pressure ulcer of sacral region, stage 4 PLAN: Plan Updated wound culture 03/29/25 had rare growth of enterococcus faecalis and avium, corynebacterium striatum (contaminant), pseudomonas aeruginosa, proteus mirabilis, klebsiella aerogenes, prevotella bivia, and unspecified anaerobic species. Patient's mother reports she only ever sees improvement with IV antibiotics; given multi-species growth and patient's complexity and tapping to bone with question for osteo will refer to ID for further recommendations. In the meantime, I did review with [facility] inpatient pharmacy to determine oral antibiotic regimen that would be compatible with PEG tube. Will require a regimen of Cipro, Flagyl, and Linezolid to address the various bacteria; however, with herhistory of reactions feel it would be best to initiate one antibiotic at a time and her mother is in agreement. Cipro was sent last week, she just received today and has not started it. Will start Cipro today and monitor for adverse reaction over the next 5-7 days before starting Linezolid. Iwill send Linezolid Rx now so hopefully it will be ready for bean picker by time sheis ready for it. For wound care continue will continue with wound vac application at 125 mmHg as tolerated; if it isfelt the vac is source of discomfort could decrease pressureto 100 mmHg. Wound vac is to be changed3 times weekly, once here and twice at home. With vac changes, do a 30 minute Dakins soak by soaking gauze in Dakins and packing into wound; afterward, reapply vac. She does have an area of skin breakdown on the edge of the vac dressing, will apply hydrocolloid patch over this area with vac changesto protect. Continue Blayne supplementation. Continue offloading efforts with frequent turns,at least every 2 hours. Plan for return to the office in 1 week, call sooner with concerns. 04/12/25 1440 Cosigner Signature (if applicable): CC: ~ Signed [facility]08-08-2025 Radiology Diagnostic study note [facility] Imaging Services [address], [place] [id number] Abdomen/Pelvis W IV Cont ONLY MR#: [id number] Acct: [id number] Name: CLAUDINE JOSEPH Rep #: [id number] : 1990 F 34 From: Walt Najera MD PCP: Dr. Colette Goode MD Status: REG ER Study:Abdomen/Pelvis W IV Cont ONLY Date of E xam: 04/06/25 Exam# [id number] Ordering Dr: Rhina Mena PROCEDURE: ABDOMEN/PELVIS W IV CONT ONLY 04/06/2025 REASON FOR EXAM: SACRAL WOUND Chronic buttock wound. This has worsened recently. Quadriplegia TECHNIQUE: ABDOMEN/PELVIS W IV CONT ONLY Coronal and Sagittal reconstruction series were provided. CONTRAST: Isovue 370 VOLUME: 75 mL One or more dose reduction techniques were used (e.g., Automated exposure control, adjustment of the mA and/or kV according to patient size, use of iterative reconstruction technique. RADIATION DOSE SUMMARY: CTDlvol: 12 mGy DLP: 520 mGycm COMPARISON: March 14, 2025 x-ray FINDINGS: Lung bases: Compressive subsegmental atelectasis of the lung bases. Liver: Normal Gallbladder: Cholecystectomy. No biliary ductal dilation. Spleen: Normal Pancreas: Normal Adrenals: Normal Kidneys: No collecting system dilation or solid mass seen. Bladder: Empty from a Sage catheter. Mild thickening of the skin around the urethra mainly on the right side. Reproductive Organs: Unremarkable Bowel: Percutaneous gastrostomy tube is present within the otherwise unremarkable stomach. The small bowel is not dilated. Colon appears normal. Appendix: Normal Lymph nodes: None appear enlarged. Vasculature: Normal Peritoneum / Retroperitoneum: No free air, free fluid or mass. Bones: Overlying the right sacral tuberosity there is a large decubitus ulcer crater with thickening of the edgar of the ulcer and mild infiltration of the subcutaneous soft tissues. The soft tissue lesion extends down to the ischial tuberosity where there is a combination of some sclerosis and heterotopic bone formation. No definite cortical thinning or osteolysis is seen. Nevertheless, given that the ulcer extends up to the bone, osteomyelitis should be considered. Overlying the distal sacrum and coccyx there is some mild infiltration of the subcutaneous soft tissues but no ulceration. No cortical destruction or osteolysis. Severe curvature with a rotatory component is seen involving the thoracic and the lumbar spine. Posterior fusion of the spine with hooks and rods is seen and includes the iliac bone on the right in the iliac/SI joint on the left. Abdominal wall: Pain pump is seen overlying the left lower quadrant. The catheter tubing appears toterminate overlying the right upper flank. CT/Abdomen/Pelvis W IV Cont ONLY IMPRESSION: 1. Sacral decubitus ulcer with extension down to the ischial tuberosity. Thereis heterotopic bone present there. Since the ulcer extends essentially to the level of the bone osteomyelitis should be considered. No drainableabscess or collection. Chronic scarring, inflammation of the skin. 2. Subtle infiltration of the subcutaneous fat overlying the lower sacral segments and coccyx. No skin breakdown seen. No bony abnormality. Early stage ulcer may be present. Recommend direct inspection. 3. Percutaneous gastrostomy tube in place. Uncomplicated 4. Sage catheter in place. Qualitative thickening of the skin on the right side near the opening of the urethra. Recommend direct inspection to ensure no inflammation. 5. Pain pump overlying the left lower quadrant. The catheter tubing terminatesoverlying the right flank at the level of the liver. Recommend inspection and function evaluation. 6. No acute intra abdominal or pelvic abnormality. 7. Cholecystectomy. Reading Location: [facility] CC: Dr. Colette Goode MD; STACIE Tabor ~ Chlorine Plant Operator: Signed [facility]08-08-2025 Hospital Discharge instructionsAdditional Instructions Today's blood work looks reassuring and the CT scan shows the 1 wound tunnels to bone but but there is no signs of abscess. I spoke with Onelia Gaspar in the wound center and she would like you to start the Cipro now and then she will start the next antibiotic in 5 to 7 days. Keep your appointment with them next week.[facility] Work Phone: 1(111) 872-275108-07-2025 Progress note Author Onelia Gaspar [facility] Note Date/Time April 05, 2025 9:3 6pm [facility] [address] [place] [address] Progress Note - Wound Care 04/05/25 1749 MR#: [id number] Acct: [id number] Name: CLAUDINE JOSEPH Rep #:[id number] : 1990 34 From: Onelia QUINONES PCP: Dr. Colette Goode MD Status: REG RCR Location: History of Present Illness Date of Service: 04/05/25 Chief Complaint: R buttock pressure ulceration History of Wound: Claudine Joseph is a 34 y/o female with cerebral palsy who is nonverbal and nonmobile, she has full care from her adoptive mother, Peg, who is present at her appointment today. [facility]; however, due to scheduling difficulties will be transitioning to my care. Peg tells me that she has had this ulceration to some extent for the past ~7 years. They have had wound care previously at a different clinic close to their home but recently decided to change to seek a different approach. She reports around year 2 of the wound a wound vac was tried, but it sounds like there was difficulty maintaining good seal. She reports through the years they have consulted with 4 different surgeons to consider surgical management but each time have opted to continue nonsurgical efforts. She reports that there has never been any known associated fistula; she has never seen any fecal matter or drainage in/around the wound. Patient does not have any history of diverticulitis/colocutaneous fistulas, pilonidal cysts or similar conditions. She reports no foul odor or thick/purulent drainage recently. She reports that Claudine has been on IV antibiotics for this ulceration in the past with PICC/midlines; there was consideration of a port but she was felt to be too highrisk for infection with this. 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 though no recent flares in the last year. She does have a low air loss mattress and robustpadding in her wheelchair but she is completely nonambulatory. She has a history of malnutrition (relies on feeding tube for nutrition), urine incontinence (she has a long-term sage catheter), fecal incontinence (averages 1 BM per day, Peg reports this is managed quickly to prevent soiling of the wound) iron deficiency anemia, and gall bladder and kidney issues per report. She is currently between PCPs but re-establishing care with an old PCP in April. At last visit here, Jaimee obtained wound cultures and started patient on Cefdinirx 2 weeks per sensitivity results. Peg states they just started these antibiotics yesterday, so far she seems to be tolerating them well. Subjective Subjective Last week, they received wound vac and had it placed. So far, she seems to be tolerating the wound vac well and Peg reports it has been maintaining good seal overall. Today, Claudine seems to be in discomfort, she is moaning intermittently. Peg notes she this is more than usual and she does seem to have some pain though difficult to pinpoint where. Her face is flushed today. She is tachycardic, though she tends toward higher heart rates at past visits also. Temp and BP normal here today, BP within her usual range here so far. Peg reports no fevers and no apparent chills at home. She has not noticed any increased drainage or odor from the wound. Objective Data Objective Data Vital Signs: Vital Signs Temp Pulse Resp BP 98.7 F 119 H 18 113/76 04/05/25 13:24 04/05/25 13:24 04/05/25 13:24 04/05/25 13:24 Charges/Coding Procedures Integumentary 111xxx-113xx: [id number] Linda musc/fascia 20 sq cm/< Physical Exam Const alert Constitutional Narrative: Nonverbal Resp normal respiratory effort Resp Narrative: O2 supplementation via NC Skin Wound Narrative: R buttock pressure ulceration cluster; Distal ulcer in the cluster near coccyx with depth, taps to bone which is hard and viable in appearance; with probing noapparent tracking; do not appreciate any foul odor, purulent or feculent drainage; no surrounding excess warmth, fluctuance, induration; wound base appears granular and pink. Proximal cluster is more superficial into the subcutaneous tissue with pink/red base without significant drainage/excess warmth/fluctuance/induration. 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 Debridement Note Debridement Note Wound debrided: Decubitus ulcer right gluteal Laterality: Right Wound Grade/Stage: Stage IV Type of Debridement: Excisional debridement Anesthesia Used: 5% Lidocaine Gel Depth: to muscle Percentage of wound debrided: 100 Instrument Used: 5mm curette Tissue Removed: Fibrin slough, devitalized tissue Severity: Fat Layer Exposed Amount of bleeding with debridement: Mild Bleeding Controlled with: Compression and gauze Patient tolerated procedure: Patient tolerated procedure well Post-Debridement Measurements and Additional Note: Post-Debridement Measurements/Treatment - Nurse 1 - General Ulcer Assessment Start: 03/30/25 13:28 Freq: Status: Active Protocol: CAROL.KRISTINA Activity Type Activity Date Activity User E-sign Co-sign Detail Recorded Client Recorded Date Recorded By Document 04/05/25 13:24 DL [id number] 04/05/25 13:46 DL 04/05/25 13:24 - Today's Visit Information Type of service Follow-up Visit (Physician/DIRECTOR OF GLOBAL SALES ) Arrival Mode Wheelchair Transfer Assistance Slade Lift Patient Identification Verified (Name & Yes ) Patient Requires Transmission-Based No Precautions Vital Signs Temperature (97.8 F-99.1 F) 98.7 F Temperature Source Temporal Pulse Rate (60-100) 119 H Pulse Location Monitor Respiratory Rate (12-18) 18 Respiratory rate source Observation Blood Pressure (90/60-120/80) 113/76 Blood Pressure Mean (mm Hg) 88 Source Monitor History Since Last Visit- (Skip if this is Patient's initial visit) Have you changed medications since your No last visit? Any new allergies or adverse reactions No Had a fall/change in ADL's that may No increase risk of falls Signs or symptoms of abuse and/or No neglect since last visit Have you been in the hospital since your No last visit? Has dressing in place as prescribed Yes Has compression in place as prescribed N/A Has offloadiing in place as prescribed Yes Experienced any changes in pain level or No management Pain Scale: 0-10 Numeric Is Patient Pain Free? Yes WC - Nurse 1 - General Ulcer Measurement Start: 03/30/25 13:28 Freq: Status: Active Protocol: Activity Type Activity Date Activity User E-sign Co-sign Detail Recorded Client Recorded Date Recorded By Document 04/05/25 13:24 DL [id number] 04/05/25 13:46 DL 04/05/25 13:24 Wound Center Nurse 1 #2- R BUTTOCK -Current Size (cm) - Length 2 -Current Size (cm) - Width 1.8 -Current Size (cm) - Depth 0.1 -Total Square Cm 3.6 -Exudate Amt Small -Exudate Type Serosanguineous -Wound Margin Distinct, Outline Attached -Granulation Amt Large (67-100%) -Granulation Quality [place] -Necrosis Amt Small (1-33%) -Necrotic Tissue Type Adherent Slough -Structure Exposed N/A -Texture (Makenzie-wound Skin Appearance) Excoriation, Scarring -Moisture (Makenzie-wound Skin Appearance) No Abnormality -Color (Makenzie-wound Skin Appearance) No Abnormality -Temperature (Makenzie-wound Skin No Abnormality Appearance) (Pt Warm) -Tenderness on Palpation (Makenzie-wound No Skin Appearance) -Ulcer Cleansing Soap and Water -Foul Odor after Cleansing No -Anesthetic Used 4% Lidocaine Solution #1 SACRAL -Current Size (cm) - Length 2.5 -Current Size (cm) - Width 3 -Current Size (cm) - Depth 2.8 -Total Square Cm 7.5 -Exudate Amt Small -Exudate Type Serosanguineous -Wound Margin Distinct, Outline Attached -Granulation Amt Large (67-100%) -Granulation Quality Red -Necrosis Amt Small (1-33%) -Necrotic Tissue Type Adherent Slough -Structure Exposed N/A -Texture (Makenzie-wound Skin Appearance) Excoriation, Scarring -Moisture (Makenzie-wound Skin Appearance) No Abnormality -Color (Makenzie-wound Skin Appearance) No Abnormality -Temperature (Makenzie-wound Skin No Abnormality Appearance) (Pt Warm) -Ulcer Cleansing Soap and Water -Foul Odor after Cleansing No -Anesthetic Used 4% Lidocaine Solution WC - Nurse 2 - General Ulcer CM Notes Start: 03/30/25 13:28 Freq: Status: Active Protocol: Activity Type Activity Date Activity User E-sign Co-sign Detail Recorded Client Recorded Date Recorded By Document 04/05/25 13:52 [id number] 04/05/25 14:02 04/05/25 13:52 Wound Center Nurse 2 #2- R BUTTOCK -Time 13:52 -Correct Patient Yes -Correct Side, Site, Position Yes -Correct Procedure Yes -Procedure Performed Yes -Type of Procedure Debridement -Clinical Debridement Subcutaneous -Tissue Removed Subcutaneous -Post Debridement (cm) - Length 2.2 -Post Debridement (cm) - Width 3.0 -Post Debridement (cm) - Depth 0.4 -Total Square (Post) (cm) 6.60 -Area of Debridement (cm) - Length 2.2 -Area of Debridement (cm) - Width 3.0 -Total Square (Area) (cm) 6.60 -Tunneling No -Undermining/Tunneling No -Circular Undermining No -Wound/Ulcer Outcome Not Healed -Ulcer Cleansing Rinsed/ Irrigated with Saline -Foul Odor after Cleansing No -Bioengineered Tissue No -Bleeding Controlled with Pressure -Treatment Response Procedure Tolerated Well -Offloading No -Debridement - Subq, 1st 20sq cm No #1 SACRAL -Time 13:53 -Correct Patient Yes -Correct Side, Site, Position Yes -Correct Procedure Yes -Procedure Performed Yes -Type of Procedure Debridement -Clinical Debridement Subcutaneous -Tissue Removed Subcutaneous -Post Debridement (cm) - Length 1.6 -Post Debridement (cm) - Width 1.8 -Post Debridement (cm) - Depth 3.2 -Total Square (Post) (cm) 2.88 -Area of Debridement (cm) - Length 1.6 -Area of Debridement (cm) - Width 1.8 -Total Square (Area) (cm) 2.88 -Tunneling No -Undermining/Tunneling No -Circular Undermining No -Wound/Ulcer Outcome Not Healed -Ulcer Cleansing Rinsed/ Irrigated with Saline -Foul Odor after Cleansing No -Bioengineered Tissue No -Bleeding Controlled with Pressure -Treatment Response Procedure Tolerated Well -Offloading No -Debridement - Subq, 1st 20sq cm Yes Pain Scale: 0-10 Numeric Is Patient Pain Free? No Pain Scale: Adult NonVerbal Is Patient Pain Free? No Face Frequent Grimace, Tearing, Frowning, Wrinkled Forehead Activity (Movement) Restless, excessive activity and/or withdrawl reflexes Guarding Rigid, Stiff Physiology (Vital Signs) Stable Vital Signs Respiratory Baseline RR/ SpO2; Compliant with Ventilator Pain Intensity 6 Pain Aggravating Factors Debridement Alleviating Factors/Interventions Medication,Will continue to monitor, Emotional Support Comments Lidocaine used WC - Nurse 3 - General Ulcer D/C NN Start: 03/30/25 13:28 Freq: Status: Active Protocol: Activity Type Activity Date Activity User E-sign Co-sign Detail Recorded Client Recorded Date Recorded By Document 04/05/25 14:17 KW [id number] 04/05/25 14:31 KW 04/05/25 14:17 Wound Care Center Nurse 3 #2- R BUTTOCK -Negative Pressure Wound Therapy Continue -Pieces of Black Foam Inserted 5 -NPWT Application Charge NPWT & Debridement (nc ) -Setting (mmHg) 125 -Negative Pressure is Continuous #1 SACRAL -Foul Odor after Cleansing Yes -Negative Pressure Wound Therapy Continue -NPWT Application Charge NPWT - Multiple Locations -Setting (mmHg) 125 -Negative Pressure is Continuous Pain Scale: 0-10 Numeric Is Patient Pain Free? Yes WC - Visit Discharge Discharge Condition Stable Ambulatory Status Wheelchair Transportation Private Auto Medication Reconcilliation completed & No provided to patient/care provider Clinical Summary of Care Provided Yes Assessment/Plan Assessment/Plan (1) Decubitus ulcer of right buttock, stage 4: CODE(S): L89.314 - Pressure ulcer of right buttock, 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: CODE(S): G80.8 - Other cerebral palsy (3) Incontinence of urine: CODE(S): R32 - Unspecified urinary incontinence QUALIFIERS: Urinary Incontinence type: continuous leakage Qualified Code(s): N39.45 - Continuous leakage (4) Fecal incontinence: CODE(S): R15.9 - Full incontinence of feces QUALIFIERS: Fecal incontinence type: unspecified Qualified Code(s): R15.9 - Full incontinence of feces (5) Malnutrition: CODE(S): E46 - Unspecified protein-calorie malnutrition QUALIFIERS: Malnutrition type: protein-calorie malnutrition Protein-calorie malnutrition severity: moderate Qualified Code(s): E44.0 - Moderate protein- calorie malnutrition PLAN: Plan Updated wound culture 03/29/25 had rare growth of enterococcus faecalis and avium, corynebacterium striatum (contaminant), pseudomonas aeruginosa, proteus mirabilis, klebsiella aerogenes, prevotella bivia, and unspecified anaerobic species. Patient's mother reports she only ever sees improvement with IV antibiotics; given multi-species growth and patient's complexity and tapping to bone with question for osteo will refer to ID for further recommendations. In the meantime, I did review with [facility] inpatient pharmacy to determine oral antibiotic regimen that would be compatible with PEG tube. Will require a regimen of Cipro, Flagyl, and Linezolid to address the various bacteria; however, with her history of reactions feel it would be best to initiate one antibiotic at a time and her mother is in agreement. Will send Cipro oral suspension 500mg BID for now. Pending tolerance will then start Linezolid then Flagyl. The wound itself appears overall stable but given her flushing, discomfort, and tachycardia considered ER evaluation but mother cannot take her this evening as she has other kids at home and no one to watch them. I ordered CBC and BMP. CBC showed slightly elevated WBC at 12.1; BMP showed elevated BUN, low Cr, Na 146 consistent with slight dehydration. Discussed with her mother that if her symptoms worsen in any way or do not improve tomorrow then I advise ER evaluation and she acknowledged understanding. For wound care continue will continue with wound vac application at 125 mmHg as tolerated; if it is felt the vac is source of discomfort could decrease pressureto 100 mmHg. Wound vac is to be changed 3 times weekly, once here and twice at home. With vac changes, do a 30 minute Dakins soak by soaking gauze in Dakins and packing into wound; afterward, reapply vac. Continue Blayne supplementation. Continue offloading efforts with frequent turns,at least every 2 hours. Plan for return to the office in 1 week, call sooner with concerns. 04/05/252135 <Electronically signed by Onelia QUINONES> Cosigner Signature (if applicable): CC: ~ Signed [facility] Work Phone: 1(987) 479-370108-07-2025 Progress note [facility] [address] [place] [address] Progress Note - Wound Care 04/05/25 1749 MR#: [id number] Acct: [id number] Name: CLAUDINE JOSEPH Rep #:[id number] : 1990 34 From: Onelia QUINONES PCP: Dr. Colette Goode MD Status: REG RCR Location: History of Present Illness Date of Service: 04/05/25 Chief Complaint: R buttock pressure ulceration History of Wound: Claudine Joseph is a 34 y/o female with cerebral palsy who is nonverbal and nonmobile, she has full care from her adoptive mother, Peg, who is present at her appointment today. She saw Jaimee to establish care at the [facility] last week; however, due to scheduling difficulties will be transitioning to my care. Peg tells me that she has had this ulceration to some extent for the past ~7 years. They have hadwound care previously at a different clinic close to their home but recently decided to change to seek a different approach. She reports around year 2 of the wound a wound vac was tried, but it sounds like there was difficulty maintaining good seal. She reports through the years they have consultedwith 4 different surgeons to consider surgical management but each time have opted to continue nonsurgical efforts. She reports that there has never been any known associated fistula; she has never seen any fecal matter or drainage in/around the wound. Patient does not have any history of diverticul itis/colocutaneous fistulas, pilonidal cysts or similar conditions. She reports no foul odor or thick/purulent drainage recently. She reports that Claudine has been on IV antibiotics for this ulceration in the past with PICC/midlines; there was consideration of a port but she was felt to be too highrisk for infection with this. 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 though no recent flares in the lastyear. She does have a low air loss mattress and robustpadding in her wheelchair but she is completely nonambulatory. She has a history of malnutrition (relies on feeding tube for nutrition), urine incontinence (she has a long-term sage catheter), fecal incontinence (averages 1 BM per day, Peg reports this is managed quickly to prevent soiling of the wound) iron deficiency anemia, and gall bladder and kidney issues per report. She is currently between PCPs but re-establishing care with an old PCP in April. At last visit here, Jaimee obtained wound cultures and started patient on Cefdinirx 2 weeks per sensitivity results. Peg states they just started these antibiotics yesterday, so far she seems to be tolerating them well. Subjective Subjective Last week, they received wound vac and had it placed. So far, she seems to be tolerating the wound vac well and Peg reports it has been maintaining good seal overall. Today, Claudine seems to be in discomfort, she is moaning intermittently. Peg notes she this is more than usual and she does seem to have some pain though difficult to pinpoint where. Her face is flushed today. She is tachycardic, though she tends toward higher heart rates at past visits also. Temp and BP normal here today, BP within her usual range here so far. Peg reports no fevers and no apparent chills at home. She has not noticed any increased drainage or odor from the wound. Objective Data Objective Data Vital Signs: Vital Signs Temp Pulse Resp BP 98.7 F 119 H 18 113/76 04/05/25 13:24 04/05/25 13:24 04/05/25 13:24 04/05/25 13:24 Charges/Coding Procedures Integumentary [id number]: [id number] Linda musc/fascia 20 sq cm/< Physical Exam Const alert Constitutional Narrative: Nonverbal Resp normal respiratory effort Resp Narrative: O2 supplementation via NC Skin Wound Narrative: R buttock pressure ulceration cluster; Distal ulcer in the cluster near coccyx with depth, taps to bone which is hard and viable in appearance; with probing noapparent tracking; do not appreciate anyfoul odor, purulent or feculent drainage; no surrounding excess warmth, fluctuance, induration; wound base appears granular and pink. Proximal cluster is more superficial into the subcutaneous tissuewith pink/red base without significant drainage/excess warmth/fluctuance/induration. 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 Debridement Note Debridement Note Wound debrided: Decubitus ulcer right gluteal Laterality: Right Wound Grade/Stage: Stage IV Type of Debridement: Excisional debridement Anesthesia Used: 5% Lidocaine Gel Depth: to muscle Percentage of wound debrided: 100 Instrument Used: 5mm curette Tissue Removed: Fibrin slough, devitalized tissue Severity: Fat Layer Exposed Amount of bleeding with debridement: Mild Bleeding Controlled with: Compression and gauze Patient tolerated procedure: Patient tolerated procedure well Post-Debridement Measurements and Additional Note: Post-Debridement Measurements/Treatment - Nurse 1 - General Ulcer Assessment Start: 03/30/25 13:28 Freq: Status: Active Protocol: ROYER Activity Type Activity Date Activity User E-sign Co-sign Detail Recorded Client Recorded Date Recorded By Document 04/05/25 13:24 DL [id number] 04/05/25 13:46 DL 04/05/25 13:24 WC - Today's Visit Information Type of service Follow-up Visit (Physician/DIRECTOR OF GLOBAL SALES ) Arrival Mode Wheelchair Transfer Assistance Slade Lift Patient Identification Verified (Name & Yes ) Patient Requires Transmission-Based No Precautions Vital Signs Temperature (97.8 F-99.1 F) 98.7 F Temperature Source Temporal Pulse Rate (60-100) 119 H Pulse Location Monitor Respiratory Rate (12-18) 18 Respiratory rate source Observation Blood Pressure (90/60-120/80) 113/76 Blood Pressure Mean (mm Hg) 88 Source Monitor History Since Last Visit- (Skip if this is Patient's initial visit) Have you changed medications since your No last visit? Any new allergies or adverse reactions No Had a fall/change in ADL's that may No increase risk of falls Signs or symptoms of abuse and/or No neglect since last visit Have you been in the hospital since your No last visit? Has dressing in place as prescribed Yes Has compression in place as prescribed N/A Has offloadiing in place as prescribed Yes Experienced any changes in pain level or No management Pain Scale: 0-10 Numeric Is Patient Pain Free? Yes - Nurse 1 - General Ulcer Measurement Start: 03/30/25 13:28 Freq: Status: Active Protocol: Activity Type Activity Date Activity User E-sign Co-sign Detail Recorded Client Recorded Date Recorded By Document 04/05/25 13:24 DL [id number] 04/05/25 13:46 DL 04/05/25 13:24 Wound Center Nurse 1 #2- R BUTTOCK -Current Size (cm) - Length 2 -Current Size (cm) - Width 1.8 -Current Size (cm) - Depth 0.1 -Total Square Cm 3.6 -Exudate Amt Small -Exudate Type Serosanguineous -Wound Margin Distinct, Outline Attached -Granulation Amt Large (67-100%) -Granulation Quality [place] -Necrosis Amt Small (1-33%) -Necrotic Tissue Type Adherent Slough -Structure Exposed N/A -Texture (Makenzie-wound Skin Appearance) Excoriation, Scarring -Moisture (Makenzie-wound Skin Appearance) No Abnormality -Color (Makenzie-wound Skin Appearance) No Abnormality -Temperature (Makenzie-wound Skin No Abnormality Appearance) (Pt Warm) -Tenderness on Palpation (Makenzie-wound No Skin Appearance) -Ulcer Cleansing Soap and Water -Foul Odor after Cleansing No -Anesthetic Used 4% Lidocaine Solution #1 SACRAL -Current Size (cm) - Length 2.5 -Current Size (cm) - Width 3 -Current Size (cm) - Depth 2.8 -Total Square Cm 7.5 -Exudate Amt Small -Exudate Type Serosanguineous -Wound Margin Distinct, Outline Attached -Granulation Amt Large (67-100%) -Granulation Quality Red -Necrosis Amt Small (1-33%) -Necrotic Tissue Type Adherent Slough -Structure Exposed N/A -Texture (Makenzie-wound Skin Appearance) Excoriation, Scarring -Moisture (Makenzie-wound Skin Appearance) No Abnormality -Color (Makenzie-wound Skin Appearance) No Abnormality -Temperature (Makenzie-wound Skin No Abnormality Appearance) (Pt Warm) -Ulcer Cleansing Soap and Water -Foul Odor after Cleansing No -Anesthetic Used 4% Lidocaine Solution WC - Nurse 2 - General Ulcer CM Notes Start: 03/30/25 13:28 Freq: Status: Active Protocol: Activity Type Activity Date Activity User E-sign Co-sign Detail Recorded Client Recorded Date Recorded By Document 04/05/25 13:52 [id number] 04/05/25 14:02 GM 04/05/25 13:52 Wound Center Nurse 2 #2- R BUTTOCK -Time 13:52 -Correct Patient Yes -Correct Side, Site, Position Yes -Correct Procedure Yes -Procedure Performed Yes -Type of Procedure Debridement -Clinical Debridement Subcutaneous -Tissue Removed Subcutaneous -Post Debridement (cm) - Length 2.2 -Post Debridement (cm) - Width 3.0 -Post Debridement (cm) - Depth 0.4 -Total Square (Post) (cm) 6.60 -Area of Debridement (cm) - Length 2.2 -Area of Debridement (cm) - Width 3.0 -Total Square (Area) (cm) 6.60 -Tunneling No -Undermining/Tunneling No -Circular Undermining No -Wound/Ulcer Outcome Not Healed -Ulcer Cleansing Rinsed/ Irrigated with Saline -Foul Odor after Cleansing No -Bioengineered Tissue No -Bleeding Controlled with Pressure -Treatment Response Procedure Tolerated Well -Offloading No -Debridement - Subq, 1st 20sq cm No #1 SACRAL -Time 13:53 -Correct Patient Yes -Correct Side, Site, Position Yes -Correct Procedure Yes -Procedure Performed Yes -Type of Procedure Debridement -Clinical Debridement Subcutaneous -Tissue Removed Subcutaneous -Post Debridement (cm) - Length 1.6 -Post Debridement (cm) - Width 1.8 -Post Debridement (cm) - Depth 3.2 -Total Square (Post) (cm) 2.88 -Area of Debridement (cm) - Length 1.6 -Area of Debridement (cm) - Width 1.8 -Total Square (Area) (cm) 2.88 -Tunneling No -Undermining/Tunneling No -Circular Undermining No -Wound/Ulcer Outcome Not Healed -Ulcer Cleansing Rinsed/ Irrigated with Saline -Foul Odor after Cleansing No -Bioengineered Tissue No -Bleeding Controlled with Pressure -Treatment Response Procedure Tolerated Well -Offloading No -Debridement - Subq, 1st 20sq cm Yes Pain Scale: 0-10 Numeric Is Patient Pain Free? No Pain Scale: Adult NonVerbal Is Patient Pain Free? No Face Frequent Grimace, Tearing, Frowning, Wrinkled Forehead Activity (Movement) Restless, excessive activity and/or withdrawl reflexes Guarding Rigid, Stiff Physiology (Vital Signs) Stable Vital Signs Respiratory Baseline RR/ SpO2; Compliant with Ventilator Pain Intensity 6 Pain Aggravating Factors Debridement Alleviating Factors/Interventions Medication,Will continue to monitor, Emotional Support Comments Lidocaine used WC - Nurse 3 - General Ulcer D/C NN Start: 03/30/25 13:28 Freq: Status: Active Protocol: Activity Type Activity Date Activity User E-sign Co-sign Detail Recorded Client Recorded Date Recorded By Document 04/05/25 14:17 [id number] 04/05/25 14:31 KYLAH 04/05/25 14:17 Wound Care Center Nurse 3 #2- R BUTTOCK -Negative Pressure Wound Therapy Continue -Pieces of Black Foam Inserted 5 -NPWT Application Charge NPWT & Debridement (nc ) -Setting (mmHg) 125 -Negative Pressure is Continuous #1 SACRAL -Foul Odor after Cleansing Yes -Negative Pressure Wound Therapy Continue -NPWT Application Charge NPWT - Multiple Locations -Setting (mmHg) 125 -Negative Pressure is Continuous Pain Scale: 0-10 Numeric Is Patient Pain Free? Yes WC - Visit Discharge Discharge Condition Stable Ambulatory Status Wheelchair Transportation Private Auto Medication Reconcilliation completed & No provided to patient/care provider Clinical Summary of Care Provided Yes Assessment/Plan Assessment/Plan (1) Decubitus ulcer of right buttock, stage 4: CODE(S): L89.314 - Pressure ulcer of right buttock, 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: CODE(S): G80.8 - Other cerebral palsy (3) Incontinence of urine: CODE(S): R32 - Unspecified urinary incontinence QUALIFIERS: Urinary Incontinence type: continuous leakage Qualified Code(s): N39.45 - Continuous leakage (4) Fecal incontinence: CODE(S): R15.9 - Full incontinence of feces QUALIFIERS: Fecal incontinence type: unspecified Qualified Code(s): R15.9 - Full incontinence of feces (5) Malnutrition: CODE(S): E46 - Unspecified protein-calorie malnutrition QUALIFIERS: Malnutrition type: protein-calorie malnutrition Protein-calorie malnutrition severity: moderate Qualified Code(s): E44.0 - Moderate protein- calorie malnutrition PLAN: Plan Updated wound culture 03/29/25 had rare growth of enterococcus faecalis and avium, corynebacterium striatum (contaminant), pseudomonas aeruginosa, proteus mirabilis, klebsiella aerogenes, prevotella bivia, and unspecified anaerobic species. Patient's mother reports she only ever sees improvement with IV antibiotics; given multi-species growth and patient's complexity and tapping to bone with question for osteo will refer to ID for further recommendations. In the meantime, I did review with [facility] inpatient pharmacy to determine oral antibiotic regimen that would be compatible with PEG tube. Will require a regimen of Cipro, Flagyl, and Linezolid to address the various bacteria; however, with herhistory of reactions feel it would be best to initiate one antibiotic at a time and her mother is in agreement. Will send Cipro oral suspension 500mg BID for now. Pending tolerance will then start Linezolid then Flagyl. The wound itself appears overall stable but given her flushing, discomfort, and tachycardia considered ER evaluation but mother cannot take her this evening as she has other kids at home and no one to watch them. I ordered CBC and BMP. CBC showed slightly elevated WBC at 12.1; BMP showed elevated BUN, low Cr, Na 146 consistent with slight dehydration. Discussed with her mother that if her symptoms worsen in any way or do not improve tomorrow then I advise ER evaluation and she acknowledged understanding. For wound care continue will continue with wound vac application at 125 mmHg as tolerated; if it isfelt the vac is source of discomfort could decrease pressureto 100 mmHg. Wound vac is to be changed3 times weekly, once here and twice at home. With vac changes, do a 30 minute Dakins soak by soaking gauze in Dakins and packing into wound; afterward, reapply vac. Continue Blayne supplementation. Continue offloading efforts with frequent turns,at least every 2 hours. Plan for return to the office in 1 week, call sooner with concerns. 04/05/252135 Cosigner Signature (if applicable): CC: ~ Signed [facility]07-31-2025 Evaluation note* Diagnosis Onset Date Resolution Status Admit Date Anemia acute March 29 1:15pm Celiac disease acute March 29, 2025 1:15pm Decubitus ulcer of right but tock, stage 4 acute March 29, 2025 1:15pm Fecal incontinence acute March 012024 1:15pm Incontinence of urine acute Feb 1:15pm Malnutrition acute March 29, 2 025 1:15pm Milk intolerance acute February 1:15pm 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, 2025 1:15pm [facility] Work Phone: 1(355) 266-977807-31-2025 Evaluation note* Diagnosis Onset Date Resolution Status Admit Date Anemia acute March 29 1:15pm Celiac disease acute March 29, 2025 1:15pm Decubitus ulcer of right buttock, stage 4 acute March 29, 2025 1:15pm Fecal incontinence acute March 012024 1:15pm Incontinence of urine acute Feb 1:15pm Malnutrition acute March 29, 2 025 1:15pm Milk intolerance acute February 1:15pm 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, 2025 1:15pm Decubitus ulcer of right buttock, stage 4 acute April 05 1:15pm Fecal incontinence acute April 05, 2025 1:15pm Incontinence of urine acute Mar 1:15pm Malnutrition acute April 05, 2025 1:15pm Quadriplegic infantile cereb ral palsy acute April 05, 2025 1:15pm [facility] Work Phone: 1(523) 831-197007-31-2025 Evaluation note* Diagnosis Onset Date Resolution Status Admit Date Anemia acute March 29 1:15pm Celiac disease acute March 29, 2025 1:15pm Decubitus ulcer of right buttock, stage 4 acute March 29, 2025 1:15pm Fecal incontinence acute March 012024 1:15pm Incontinence of urine acute Feb 1:15pm Malnutrition acute March 29, 2 025 1:15pm Milk intolerance acute February 1:15pm 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, 2025 1:15pm Decubitus ulcer of right buttock, stage 4 acute April 19 2:45pm Decubitus ulcer of sacral area acute April 19, 2025 2:45pm Fecal incontinence acute April 19, 2025 2:45pm Incontinence of urine acute Mar 2:45pm Malnutrition acute April 19, 2025 2:45pm Quadriplegic infantile cereb ral palsy acute April 19 2:45pm [facility] Work Phone: 1([phone]) 798-314407-31-2025 Evaluation note* Diagnosis Onset Date Resolution Status Admit Date Anemia acute March 29 1:15pm Celiac disease acute March 29, 2025 1:15pm Decubitus ulcer of right buttock, stage 4 acute March 29, 2025 1:15pm Fecal incontinence acute March 012024 1:15pm Incontinence of urine acute Feb 1:15pm Malnutrition acute March 29, 2 025 1:15pm Milk intolerance acute February 1:15pm Quadriplegic infantile cerebral palsy acute March 29, 2025 1:15pm Decubitus ulcer of right buttock, stage 4 acute April 19 2:45pm Decubitus ulcer of sacral area acute April 19, 2025 2:45pm Fecal incontinence acute April 19, 2025 2:45pm Incontinence of urine acute Mar 2:45pm Malnutrition acute April 19, 2025 2:45pm Quadriplegic infantile cerebral palsy acute April 19 2:45pm Decubitus ulcer of right buttock, stage 4 acute May 03, 2025 10:44am Decubitus ulcer of sacral area acute May 03, 2025 10:44am Fecal incontinence acute 2024 10:44am Incontinence of urine acute Apr 10:44am Malnutrition acute April 10:44am Quadriplegic infantile cerebral palsy acute May 03 025 10:44am [facility] Work Phone: 1(770) 536-961707-31-2025 Evaluation note* Diagnosis Onset Date Resolution Status Admit Date Anemia acute March 29 1:15pm Celiac disease acute March 29, 2025 1:15pm Decubitus ulcer of right buttock, stage 4 acute March 29, 2025 1:15pm Fecal incontinence acute March 012024 1:15pm Incontinence of urine acute Feb 1:15pm Malnutrition acute March 29, 2 025 1:15pm Milk intolerance acute February 1:15pm Quadriplegic infantile cerebral palsy acute March 29, 2025 1:15pm Decubitus ulcer of right buttock, stage 4 acute April 19 2:45pm Decubitus ulcer of sacral area acute April 19, 2025 2:45pm Fecal incontinence acute April 19, 2025 2:45pm Incontinence of urine acute Aug us2024 2:45pm Malnutrition acute April 19, 2025 2:45pm Quadriplegic infantile cerebral palsy acute April 19 2:45pm Decubitus ulcer of right buttock, stage 4 acute May 10, 2025 2:00pm Decubitus ulcer of sacral area acute May 10, 2025 2:00pm Fecal incontinence acute Septem 2024 2:00pm Incontinence of urine acute Sep tember 2024 2:00pm Malnutrition acute May 102024 2:00pm Quadriplegic infantile cerebral palsy acute May 10, 2025 2:00pm [facility] Work Phone: 1(136) 992-311007-25-2025 Progress note Author Onelia Gaspar [facility] Note Date/Time March 23, 2025 9:29 am [facility] [address] [place] [id number] Progress Note - Wound Care 03/22/25 1602 MR#: [id number] Acct: [id number] Name: CLAUDINE JOSEPH Rep #:[id number] 2 : 1990 34 From: Onelia QUINONES PCP: Dr. Colette Goode MD Status: REG RCR Location: History of Present Illness Date of Service: 03/22/25 Chief Complaint: R buttock pressure ulceration History of Wound: Claudine Joseph is a 34 y/o female with cerebral palsy who is nonverbal and nonmobile, she has full care from her adoptive mother, Peg, who is present at her appointment today. She [facility]; however, due to scheduling difficulties will be transitioning to my care. Peg tells me that she has had this ulceration to some extent for the past ~7 years. They have had wound care previously at a different clinic close to their home but recently decided to change to seek a different approach. She reports around year 2 of the wound a wound vac was tried, but it sounds like there was difficulty maintaining good seal. She reports through the years they have consulted with 4 different surgeons to consider surgical management but each time have opted to continue nonsurgical efforts. She reports that there has never been any known associated fistula; she has never seen any fecal matter or drainage in/around the wound. Patient does not have any history of diverticulitis/colocutaneous fistulas, pilonidal cysts or similar conditions. She reports no foul odor or thick/purulent drainage recently. She reports that Claudine has been on IV antibiotics for this ulceration in the past with PICC/midlines; there was consideration of a port but she was felt to be too highrisk for infection with this. 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 though no recent flares in the last year. She does have a low air loss mattress and robustpadding in her wheelchair but she is completely nonambulatory. She has a history of malnutrition (relies on feeding tube for nutrition), urine incontinence (she has a long-term sage catheter), fecal incontinence (averages 1 BM per day, Peg reports this is managed quickly to prevent soiling of the wound) iron deficiency anemia, and gall bladder and kidney issues per report. She is currently between PCPs but re-establishing care with an old PCP in April. At last visit here, Jaimee obtained wound cultures and started patient on Cefdinirx 2 weeks per sensitivity results. Peg states they just started these antibiotics yesterday, so far she seems to be tolerating them well. Objective Data Objective Data Vital Signs: Vital Signs Temp Pulse Resp BP 97.6 F L 100 18 98/61 03/22/25 13:26 03/22/25 13:26 03/22/25 13:26 03/22/25 13:26 Weight: 75 lb 5.547 oz Body Mass Index (BMI) 18.8 Lab / Micro Data 03/14/25 12:18 03/14/25 12:18 Micro: Microbiology 03/14/25 14:21 Wound - Buttock Gram Stain - Final 03/14/25 14:21 Wound - Buttock Wound Culture - Final Klebsiella aerogenes Enterococcus faecalis 03/14/25 14:21 Wound - Buttock Anaerobic Culture - Final Anaerobic cocci Prevotella bivia Charges/Coding Visit Charges Office Visits / Consults: 17589 OV L3 New 30min Procedures Integumentary 111xxx-113xx: [id number] Linda musc/fascia 20 sq cm/< (26.25 sqcm) Physical Exam Const alert Constitutional Narrative: Nonverbal Resp normal respiratory effort Resp Narrative: O2 supplementation via NC Skin Wound Narrative: R buttock pressure ulceration cluster; Proximal ulcer in the cluster near coccyxwith depth, taps to bone which is hard and viable in appearance; with probing noapparent tracking; do not appreciate any foul odor, purulent or feculent drainage; no surrounding excess warmth, fluctuance, induration; wound base appears granular and pink. Distal cluster is more superficial into the subcutaneous tissue with pink/red base without significant drainage/excess warmth/fluctuance/induration. 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 Debridement Note Debridement Note Wound debrided: Decubitus ulcer right gluteal Laterality: Right Wound Grade/Stage: Stage IV Type of Debridement: Excisional debridement Anesthesia Used: 5% Lidocaine Gel Depth: to muscle Percentage of wound debrided: 100 Instrument Used: 5mm curette Tissue Removed: Fibrin slough, devitalized tissue Severity: Fat Layer Exposed Amount of bleeding with debridement: Mild Bleeding Controlled with: Compression and gauze Patient tolerated procedure: Patient tolerated procedure well Post-Debridement Measurements and Additional Note: Post-Debridement Measurements/Treatment - Nurse 1 - General Ulcer Assessment Start: 03/14/25 10:21 Freq: Status: Active Protocol: ROYER Activity Type Activity Date Activity User E-sign Co-sign Detail Recorded Client Recorded Date Recorded By Document 03/14/25 10:22 DL [id number] 03/14/25 10:44 DL Document 03/22/25 13:26 DL [id number] 03/22/25 13:40 DL 03/14/25 03/22/25 10:22 13:26 - Today's Visit Information Type of service Initial Visit Follow-up Visit (Physician/DIRECTOR OF GLOBAL SALES ) Arrival Mode Wheelchair Wheelchair Transfer Assistance Manual Slade Lift Transfer Assist (Other) x2 Patient Identification Verified (Name & Yes Yes ) Patient Requires Transmission-Based No No Precautions Height and Weight Height 4 ft 5 in Weight 75 lb 5.547 oz Weight in Pounds 75.3 lbs Body Mass Index (BMI) 18.8 18.8 BMI Classification Normal Normal Vital Signs Temperature (97.8 F-99.1 F) 97.8 F 97.6 F L Temperature Source Temporal Temporal Pulse Rate (60-100) 100 Pulse Location Monitor Respiratory Rate (12-18) 16 18 Respiratory rate source Observation Observation Blood Pressure (90/60-120/80) 98/61 Blood Pressure Mean (mm Hg) 73 Source Monitor History Since Last Visit- (Skip if this is Patient's initial visit) Have you changed medications since your No last visit? Any new allergies or adverse reactions No Had a fall/change in ADL's that may No increase risk of falls Signs or symptoms of abuse and/or No neglect since last visit Have you been in the hospital since your No last visit? Has dressing in place as prescribed Yes Has compression in place as prescribed N/A Has offloadiing in place as prescribed Yes Experienced any changes in pain level or No management Pain Scale: 0-10 Numeric Is Patient Pain Free? Yes Yes Communication Assessment Preferred language None Able to Read No: NonVerbal Able to Write No: NonVerbal Caregiver Communication Skills Unable To Impairment Follow Commands Teaching Assessment Preferences Verbal,Written, Demonstration Barriers to Learning None Readiness To Learn Poor Willingness to Engage in Self Management Low Activies Readiness to Engage in Self Management Low Activities Anxiety Level Calm Cooperation Cooperative Perception Coherent Interest in Health Problem Asks Questions Education Importance Acknowledges Need Does Patient Smoke tobacco or other No substances Is Patient Diabetic No WC - Nurse 1 - General Ulcer Measurement Start: 03/14/25 10:21 Freq: Status: Active Protocol: Activity Type Activity Date Activity User E-sign Co-sign Detail Recorded Client Recorded Date Recorded By Document 03/14/25 10:22 DL [id number] 03/14/25 10:44 DL Document 03/22/25 13:26 DL [id number] 03/22/25 13:40 DL 03/14/25 03/22/25 10:22 13:26 Wound Center Nurse 1 #1 R Buttocks Cluster -Current Size (cm) - Length 6.6 7 -Current Size (cm) - Width 4.2 2.5 -Current Size (cm) - Depth 1.8 1.8 -Total Square Cm 27.72 17.5 -Photo Taken Yes -Exudate Amt Medium Small -Exudate Type Serosanguineous Serosanguineous -Wound Margin Distinct, Distinct, Outline Outline Attached Attached -Granulation Amt Large (67-100%) Large (67-100%) -Granulation Quality [place],Red -Necrosis Amt None Present (0 None Present (0 %) %) -Necrotic Tissue Type Adherent Slough -Structure Exposed N/A N/A -Texture (Makenzie-wound Skin Appearance) Scarring,Rash Scarring -Moisture (Makenzie-wound Skin Appearance) No Abnormality No Abnormality -Color (Makenzie-wound Skin Appearance) No Abnormality No Abnormality -Temperature (Makenzie-wound Skin No Abnormality No Abnormality Appearance) (Pt Warm) (Pt Warm) -Tenderness on Palpation (Makenzie-wound No Skin Appearance) -Ulcer Cleansing Soap and Water Soap and Water -Foul Odor after Cleansing No No -Anesthetic Used 5% Lidocaine 4% Lidocaine Gel Solution WC - Nurse 2 - General Ulcer CM Notes Start: 03/14/25 10:21 Freq: Status: Active Protocol: Activity Type Activity Date Activity User E-sign Co-sign Detail Recorded Client Recorded Date Recorded By Document 03/14/25 11:06 [facility] [id number] 03/14/25 11:24 [facility] Document 03/22/25 13:50 DS [id number] 03/22/25 14:03 DS 03/14/25 03/22/25 11:06 13:50 Wound Center Nurse 2 #1 R Buttocks Cluster -Time 11:06 13:55 -Correct Patient Yes Yes -Correct Side, Site, Position Yes Yes -Correct Procedure Yes Yes -Procedure Performed Yes Yes -Type of Procedure Debridement Debridement -Clinical Debridement Muscle / Fascia Muscle / Fascia -Tissue Removed Muscle,Fascia Muscle,Fascia -Post Debridement (cm) - Length 5.5 3.5 -Post Debridement (cm) - Width 7.5 7.5 -Post Debridement (cm) - Depth 2.0 3.3 -Total Square (Post) (cm) 41.25 26.25 -Area of Debridement (cm) - Length 5.5 3.5 -Area of Debridement (cm) - Width 7.5 7.5 -Total Square (Area) (cm) 41.25 26.25 -Tunneling No -Undermining/Tunneling No -Circular Undermining No -Wound/Ulcer Outcome Not Healed Not Healed -Ulcer Cleansing Rinsed/ Rinsed/ Irrigated with Irrigated with Saline Saline -Foul Odor after Cleansing No No -Bioengineered Tissue No No -Bleeding Controlled with Pressure Pressure -Treatment Response Procedure Procedure Tolerated Well Tolerated Well -Debridement - Muscle / Fascia, 1st Yes Yes 20sq cm -Debridement, Muscle/Fascia, ea addt'l 1 1 20sq cm or part thereof Pain Scale: 0-10 Numeric Is Patient Pain Free? Yes Yes WC - Nurse 3 - General Ulcer D/C NN Start: 03/14/25 10:21 Freq: Status: Active Protocol: Activity Type Activity Date Activity User E-sign Co-sign Detail Recorded Client Recorded Date Recorded By Document 03/14/25 11:40 ML [id number] 03/14/25 11:42 ML Document 03/22/25 15:51 BMF [id number] 03/22/25 15:52 BMF 03/14/25 03/22/25 11:40 15:51 Wound Care Center Nurse 3 #1 R Buttocks Cluster -Ulcer Cleansing Soap and Water Rinsed/ Irrigated with Saline -Foul Odor after Cleansing No -Primary Dressing Applied Aquacel Extra, Aquacel Extra Hysept -Other Dressing dakins 0.25 dakins to wound w/ depth, aquacel extra to proximal area, -Primary Dressing Covered/Secured with Secured with Tape -Other Covering abd pad; atb oint to makenzie wound -Aquacel Extra 1 1 -Hysept 1 Treatment Response Procedure Tolerated Well Pain Scale: 0-10 Numeric Is Patient Pain Free? Yes Yes WC - Visit Discharge Discharge Condition Stable Ambulatory Status Wheelchair Transportation Private Auto Accompanied by mom who is her caregiver Assessment/Plan Assessment/Plan (1) Decubitus ulcer of right buttock, stage 4: CODE(S): L89.314 - Pressure ulcer of right buttock, 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: CODE(S): G80.8 - Other cerebral palsy (3) Incontinence of urine: CODE(S): R32 - Unspecified urinary incontinence QUALIFIERS: Urinary Incontinence type: continuous leakage Qualified Code(s): N39.45 - Continuous leakage (4) Fecal incontinence: CODE(S): R15.9 - Full incontinence of feces QUALIFIERS: Fecal incontinence type: unspecified Qualified Code(s): R15.9 - Full incontinence of feces (5) Celiac disease: CODE(S): K90.0 - Celiac disease (6) Milk intolerance: CODE(S): K90.49 - Malabsorption due to intolerance, not elsewhere classified (7) Malnutrition: CODE(S): E46 - Unspecified protein-calorie malnutrition QUALIFIERS: Malnutrition type: protein-calorie malnutrition Protein-calorie malnutrition severity: moderate Qualified Code(s): E44.0 - Moderate protein- calorie malnutrition (8) Anemia: CODE(S): D64.9 - Anemia, unspecified QUALIFIERS: Anemia type: iron deficiency Iron deficiency anemia type: inadequate dietary iron intake Qualified Code(s): D50.8 - Other iron deficiency anemias PLAN: Plan I reviewed labs that were ordered last week. Hgb low normal at 12.2; iron deficiency noted. Elevated BUN with low Creatinine and normal GFR. Elevated Alk phos with normal AST/ALT. Prealbumin normal. WBC normal. Unclear if these elevations are chronic as I have no prior labs for comparison. Will request mostrecent labs from prior wound center to compare and consider repeating to trend. Advised iron supplementation. Continue Cefdinir; she had XR which did not suggest bone involvement but given chronic bone exposure will likely plan to treat for 4-6 weeks to cover for possible osteo as long as antibiotics are well-tolerated. If there is concern for ongoing/worsening infection then would plan for ID referral for their evaluation/management. For wound care continue: (1) Wash the area with antibacterial soap and water, pat to dry (2) Pack wound with Dakins-soaked gauze (3) Apply Aquacel extra to the superficial portions (4) Cover with ABD or other absorbent dressing such as super absorber (5) Change twice daily or more often as needed to keep clean. Given the depth of the wound I think it would be worth trying a wound vac again,Peg agrees. Will submit to insurance for wound vac. Continue Blayne supplementation. Continue offloading efforts with frequent turns,at least every 2 hours. Plan for return to the office in 1 week, call sooner with concerns. 03/23/25 [id number] <Electronically signed by Onelia QUINONES> Cosigner Signature (if applicable): CC: ~ Signed [facility] Work Phone: [phone] [phone] Progress note [facility] [address] [place] [address] Progress Note - Wound Care 03/22/25 1602 MR#: [id number] Acct: [id number] Name: CLAUDINE JOSEPH Rep #:[id number] 2 : 1990 34 From: Onelia QUINONES PCP: Dr. Colette Goode MD Status: REG RCR Location: History of Present Illness Date of Service: 03/22/25 Chief Complaint: R buttock pressure ulceration History of Wound: Claudine Joseph is a 34 y/o female with cerebral palsy who is nonverbal and nonmobile, she has full care from her adoptive mother, Peg, who is present at her appointment today. She saw Jaimee to establish care at the [facility] last week; however, due to scheduling difficulties will be transitioning to my care. Peg tells me that she has had this ulceration to some extent for the past ~7 years. They have hadwound care previously at a different clinic close to their home but recently decided to change to seek a different approach. She reports around year 2 of the wound a wound vac was tried, but it sounds like there was difficulty maintaining good seal. She reports through the years they have consultedwith 4 different surgeons to consider surgical management but each time have opted to continue nonsurgical efforts. She reports that there has never been any known associated fistula; she has never seen any fecal matter or drainage in/around the wound. Patient does not have any history of diverticul itis/colocutaneous fistulas, pilonidal cysts or similar conditions. She reports no foul odor or thick/purulent drainage recently. She reports that Claudine has been on IV antibiotics for this ulceration in the past with PICC/midlines; there was consideration of a port but she was felt to be too highrisk for infection with this. 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 though no recent flares in the lastyear. She does have a low air loss mattress and robustpadding in her wheelchair but she is completely nonambulatory. She has a history of malnutrition (relies on feeding tube for nutrition), urine incontinence (she has a long-term sage catheter), fecal incontinence (averages 1 BM per day, Peg reports this is managed quickly to prevent soiling of the wound) iron deficiency anemia, and gall bladder and kidney issues per report. She is currently between PCPs but re-establishing care with an old PCP in April. At last visit here, Jaimee obtained wound cultures and started patient on Cefdinirx 2 weeks per sensitivity results. Peg states they just started these antibiotics yesterday, so far she seems to be tolerating them well. Objective Data Objective Data Vital Signs: Vital Signs Temp Pulse Resp BP 97.6 F L 100 18 98/61 03/22/25 13:26 03/22/25 13:26 03/22/25 13:26 03/22/25 13:26 Weight: 75 lb 5.547 oz Body Mass Index (BMI) 18.8 Lab / Micro Data 03/14/25 12:18 03/14/25 12:18 Micro: Microbiology 03/14/25 14:21 Wound - Buttock Gram Stain - Final 03/14/25 14:21 Wound - Buttock Wound Culture - Final Klebsiella aerogenes Enterococcus faecalis 03/14/25 14:21 Wound - Buttock Anaerobic Culture - Final Anaerobic cocci Prevotella bivia Charges/Coding Visit Charges Office Visits / Consults: 98335 OV L3 New 30min Procedures Integumentary [id number]: [id number] Linda musc/fascia 20 sq cm/< (26.25 sqcm) Physical Exam Const alert Constitutional Narrative: Nonverbal Resp normal respiratory effort Resp Narrative: O2 supplementation via NC Skin Wound Narrative: R buttock pressure ulceration cluster; Proximal ulcer in the cluster near coccyxwith depth, taps tobone which is hard and viable in appearance; with probing noapparent tracking; do not appreciate any foul odor, purulent or feculent drainage; no surrounding excess warmth, fluctuance, induration; wound base appears granular and pink. Distal cluster is more superficial into the subcutaneous tissue with pink/red base without significant drainage/excess warmth/fluctuance/induration. 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 Debridement Note Debridement Note Wound debrided: Decubitus ulcer right gluteal Laterality: Right Wound Grade/Stage: Stage IV Type of Debridement: Excisional debridement Anesthesia Used: 5% Lidocaine Gel Depth: to muscle Percentage of wound debrided: 100 Instrument Used: 5mm curette Tissue Removed: Fibrin slough, devitalized tissue Severity: Fat Layer Exposed Amount of bleeding with debridement: Mild Bleeding Controlled with: Compression and gauze Patient tolerated procedure: Patient tolerated procedure well Post-Debridement Measurements and Additional Note: Post-Debridement Measurements/Treatment CAROL - Nurse 1 - General Ulcer Assessment Start: 03/14/25 10:21 Freq: Status: Active Protocol: ROYER Activity Type Activity Date Activity User E-sign Co-sign Detail Recorded Client Recorded Date Recorded By Document 03/14/25 10:22 DL [id number] 03/14/25 10:44 DL Document 03/22/25 13:26 DL [id number] 03/22/25 13:40 DL 03/14/25 03/22/25 10:22 13:26 WC - Today's Visit Information Type of service Initial Visit Follow-up Visit (Physician/DIRECTOR OF GLOBAL SALES ) Arrival Mode Wheelchair Wheelchair Transfer Assistance Manual Slade Lift Transfer Assist (Other) x2 Patient Identification Verified (Name & Yes Yes ) Patient Requires Transmission-Based No No Precautions Height and Weight Height 4 ft 5 in Weight 75 lb 5.547 oz Weight in Pounds 75.3 lbs Body Mass Index (BMI) 18.8 18.8 BMI Classification Normal Normal Vital Signs Temperature (97.8 F-99.1 F) 97.8 F 97.6 F L Temperature Source Temporal Temporal Pulse Rate (60-100) 100 Pulse Location Monitor Respiratory Rate (12-18) 16 18 Respiratory rate source Observation Observation Blood Pressure (90/60-120/80) 98/61 Blood Pressure Mean (mm Hg) 73 Source Monitor History Since Last Visit- (Skip if this is Patient's initial visit) Have you changed medications since your No last visit? Any new allergies or adverse reactions No Had a fall/change in ADL's that may No increase risk of falls Signs or symptoms of abuse and/or No neglect since last visit Have you been in the hospital since your No last visit? Has dressing in place as prescribed Yes Has compression in place as prescribed N/A Has offloadiing in place as prescribed Yes Experienced any changes in pain level or No management Pain Scale: 0-10 Numeric Is Patient Pain Free? Yes Yes Communication Assessment Preferred language None Able to Read No: NonVerbal Able to Write No: NonVerbal Caregiver Communication Skills Unable To Impairment Follow Commands Teaching Assessment Preferences Verbal,Written, Demonstration Barriers to Learning None Readiness To Learn Poor Willingness to Engage in Self Management Low Activies Readiness to Engage in Self Management Low Activities Anxiety Level Calm Cooperation Cooperative Perception Coherent Interest in Health Problem Asks Questions Education Importance Acknowledges Need Does Patient Smoke tobacco or other No substances Is Patient Diabetic No WC - Nurse 1 - General Ulcer Measurement Start: 03/14/25 10:21 Freq: Status: Active Protocol: Activity Type Activity Date Activity User E-sign Co-sign Detail Recorded Client Recorded Date Recorded By Document 03/14/25 10:22 DL [id number] 03/14/25 10:44 DL Document 03/22/25 13:26 DL [id number] 03/22/25 13:40 DL 03/14/25 03/22/25 10:22 13:26 Wound Center Nurse 1 #1 R Buttocks Cluster -Current Size (cm) - Length 6.6 7 -Current Size (cm) - Width 4.2 2.5 -Current Size (cm) - Depth 1.8 1.8 -Total Square Cm 27.72 17.5 -Photo Taken Yes -Exudate Amt Medium Small -Exudate Type Serosanguineous Serosanguineous -Wound Margin Distinct, Distinct, Outline Outline Attached Attached -Granulation Amt Large (67-100%) Large (67-100%) -Granulation Quality [place],Red -Necrosis Amt None Present (0 None Present (0 %) %) -Necrotic Tissue Type Adherent Slough -Structure Exposed N/A N/A -Texture (Makenzie-wound Skin Appearance) Scarring,Rash Scarring -Moisture (Makenzie-wound Skin Appearance) No Abnormality No Abnormality -Color (Makenzie-wound Skin Appearance) No Abnormality No Abnormality -Temperature (Makenzie-wound Skin No Abnormality No Abnormality Appearance) (Pt Warm) (Pt Warm) -Tenderness on Palpation (Makenzie-wound No Skin Appearance) -Ulcer Cleansing Soap and Water Soap and Water -Foul Odor after Cleansing No No -Anesthetic Used 5% Lidocaine 4% Lidocaine Gel Solution WC - Nurse 2 - General Ulcer CM Notes Start: 03/14/25 10:21 Freq: Status: Active Protocol: Activity Type Activity Date Activity User E-sign Co-sign Detail Recorded Client Recorded Date Recorded By Document 03/14/25 11:06 [facility] [id number] 03/14/25 11:24 [facility] Document 03/22/25 13:50 DS [id number] 03/22/25 14:03 DS 03/14/25 03/22/25 11:06 13:50 Wound Center Nurse 2 #1 R Buttocks Cluster -Time 11:06 13:55 -Correct Patient Yes Yes -Correct Side, Site, Position Yes Yes -Correct Procedure Yes Yes -Procedure Performed Yes Yes -Type of Procedure Debridement Debridement -Clinical Debridement Muscle / Fascia Muscle / Fascia -Tissue Removed Muscle,Fascia Muscle,Fascia -Post Debridement (cm) - Length 5.5 3.5 -Post Debridement (cm) - Width 7.5 7.5 -Post Debridement (cm) - Depth 2.0 3.3 -Total Square (Post) (cm) 41.25 26.25 -Area of Debridement (cm) - Length 5.5 3.5 -Area of Debridement (cm) - Width 7.5 7.5 -Total Square (Area) (cm) 41.25 26.25 -Tunneling No -Undermining/Tunneling No -Circular Undermining No -Wound/Ulcer Outcome Not Healed Not Healed -Ulcer Cleansing Rinsed/ Rinsed/ Irrigated with Irrigated with Saline Saline -Foul Odor after Cleansing No No -Bioengineered Tissue No No -Bleeding Controlled with Pressure Pressure -Treatment Response Procedure Procedure Tolerated Well Tolerated Well -Debridement - Muscle / Fascia, 1st Yes Yes 20sq cm -Debridement, Muscle/Fascia, ea addt'l 1 1 20sq cm or part thereof Pain Scale: 0-10 Numeric Is Patient Pain Free? Yes Yes - Nurse 3 - General Ulcer D/C NN Start: 03/14/25 10:21 Freq: Status: Active Protocol: Activity Type Activity Date Activity User E-sign Co-sign Detail Recorded Client Recorded Date Recorded By Document 03/14/25 11:40 ML [id number] 03/14/25 11:42 ML Document 03/22/25 15:51 [facility] [id number] 03/22/25 15:52 [facility] 03/14/25 03/22/25 11:40 15:51 Wound Care Center Nurse 3 #1 R Buttocks Cluster -Ulcer Cleansing Soap and Water Rinsed/ Irrigated with Saline -Foul Odor after Cleansing No -Primary Dressing Applied Aquacel Extra, Aquacel Extra Hysept -Other Dressing dakins 0.25 dakins to wound w/ depth, aquacel extra to proximal area, -Primary Dressing Covered/Secured with Secured with Tape -Other Covering abd pad; atb oint to makenzie wound -Aquacel Extra 1 1 -Hysept 1 Treatment Response Procedure Tolerated Well Pain Scale: 0-10 Numeric Is Patient Pain Free? Yes Yes - Visit Discharge Discharge Condition Stable Ambulatory Status Wheelchair Transportation Private Auto Accompanied by mom who is her caregiver Assessment/Plan Assessment/Plan (1) Decubitus ulcer of right buttock, stage 4: CODE(S): L89.314 - Pressure ulcer of right buttock, 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: CODE(S): G80.8 - Other cerebral palsy (3) Incontinence of urine: CODE(S): R32 - Unspecified urinary incontinence QUALIFIERS: Urinary Incontinence type: continuous leakage Qualified Code(s): N39.45 - Continuous leakage (4) Fecal incontinence: CODE(S): R15.9 - Full incontinence of feces QUALIFIERS: Fecal incontinence type: unspecified Qualified Code(s): R15.9 - Full incontinence of feces (5) Celiac disease: CODE(S): K90.0 - Celiac disease (6) Milk intolerance: CODE(S): K90.49 - Malabsorption due to intolerance, not elsewhere classified (7) Malnutrition: CODE(S): E46 - Unspecified protein-calorie malnutrition QUALIFIERS: Malnutrition type: protein-calorie malnutrition Protein-calorie malnutrition severity: moderate Qualified Code(s): E44.0 - Moderate protein- calorie malnutrition (8) Anemia: CODE(S): D64.9 - Anemia, unspecified QUALIFIERS: Anemia type: iron deficiency Iron deficiency anemia type: inadequate dietary iron intake Qualified Code(s): D50.8 - Other iron deficiency anemias PLAN: Plan I reviewed labs that were ordered last week. Hgb low normal at 12.2; iron deficiency noted. Elevated BUN with low Creatinine and normal GFR. Elevated Alk phos with normal AST/ALT. Prealbumin normal. WBC normal. Unclear if these elevations are chronic as I have no prior labs for comparison. Will request mostrecent labs from prior wound center to compare and consider repeating to trend. Advised iron supplementation. Continue Cefdinir; she had XR which did not suggest bone involvement but given chronic bone exposure will likely plan to treat for 4-6 weeks to cover for possible osteo as long as antibiotics are well-tolerated. If there is concern for ongoing/worsening infection then would plan for ID referral fortheir evaluation/management. For wound care continue: (1) Wash the area with antibacterial soap and water, pat to dry (2) Pack wound with Dakins-soaked gauze (3) Apply Aquacel extra to the superficial portions (4) Cover with ABDor other absorbent dressing such as super absorber (5) Change twice daily or more often as needed to keep clean. Given the depth of the wound I think it would be worth trying a wound vac again,Peg agrees. Will submit to insurance for wound vac. Continue Blayne supplementation. Continue offloading efforts with frequent turns,at least every 2 hours. Plan for return to the office in 1 week, call sooner with concerns. 03/23/25 0929 Cosigner Signature (if applicable): CC: ~ Signed [facility]07-16-2025 History and physical note Author Jaimee Marshall [facility] Note Date/Time March 14, 2025 12:4 1pm [facility] [address] [place] [address] H&P Exam - Wound Care 03/14/25 1222 MR#: [id number] Acct: [id number] Name: CLAUDINE JOSEPH Rep #:[id number] : 1990 34 From: Jaimee Marshall NP COMPREHENSIVE OPHTHALMOLOGIST-C PCP: Dr. Colette Goode MD Status: REG RCR Location: History of Present Illness Date of Service: 03/14/25 Chief Complaint: Follow-up on an old coccyx wound History of Wound: Adopted mother states that she is nonverbal nonmobile 34-year-old white female with a long-term opening in her coccyx gluteal fold opening she does have Sage to CD at this time. The area has depth and is no tunneling but does come out on top near her perineal area. Adopted mom states she has been on lots of antibiotics and that there is redness around the wound and she feels it is infected again and would like it rechecked the wound has notreally been checked by a doctor for about 2 months when she lost her regular doctor down by their house. Mother and health policy nurse take care of her 22/03 she doeshave a low air mattress she does have padding for her seat cushions when she is up in a wheelchair though she is not able to hold herself up at all. Skin turgor looks good she does have history of malnutrition and of iron deficient anemia. Adoptive mom was here mostly for a second opinion because he is gettingupset with down by her house the wound care center at that point he has not really done anything and they just keep putting topicals on her. Today we will do wound cultures and also start packing with some Dakin's and see if that helpswith the wound but eventually she is cannot probably need a wound VAC. [facility] Medical History (Updated 03/14/25 @ 12:38 by Jaimee Marshall NP, COMPREHENSIVE OPHTHALMOLOGIST-C) Quadriplegic infantile cerebral palsy Home Medications ?Medication ?Instructions ?Recorded ?Last Taken ?Type acetaminophen 325 mg tablet (Aphen) 325 mg PO Q6H PRN fever or pain 03/14/25 Unknown History albuterol (refill) 90 mcg inhalation 03/14/25 Unkn own History mcg/actuation aerosol inhaler amikacin 1,000 mg/4 mL injection 250 mg IM Q12H Unknown History solution baclofen 50 mcg/mL intrathecal 50 mcg intrathecal Q24H 03/14/25 Unknown History solution diazepam (Valtoco) 15 mg intranasal Q4H 5 Unknown History diazepam 2 mg tablet 2 mg PO DAILY 03/14/25 Unkno wn History doxycycline monohydrate 100 mg 100 mg PO BID 03/14/25 Unknown History capsule fluconazole 100 mg tablet 100 mg PO DAILY 03/14/25 Unk nown History (Diflucan) fluticasone propionate 50 2 spray intranasal DAILY PRN nasal 03/14/25 Unknown History mcg/actuation nasal congestion spray,suspension (Aller-Kenny) ibuprofen 200 mg tablet (IBU-200) 200 mg PO Q8H Unknown History levetiracetam 100 mg/mL oral PO 03/14/25 Unknown Histo ry solution loratadine 10 mg tablet 10 mg PO DAILY 03/14/25 Unkn own History medroxyprogesterone 150 mg/mL 150 mg IM QMONTH 5 Unknown History intramuscular suspension (Depo-Provera) omeprazole 40 mg capsule,delayed 40 mg PO DAILY Unknown History release polyethylene glycol 3350 17 17 g PO DAILY 03/14/25 Unk nown History gram/dose oral powder (ClearLax) promethazine 12.5 mg rectal 12.5 mg MS Q6H nausea 02/27 02/21 Unknown History suppository singular 03/14/25 Unknown History tramadol 50 mg tablet 50 mg PO DAILY 03/14/25 Unkn own History Allergy/AdvReac Type Severity Reaction Status Date / Time Penicillins (PCN) AdvReac Blisters Verified 03/14/25 10:49 ROS Constitutional Constitutional: Reports systems reviewed and no addt'l complaints, except as documented Eyes Eyes: Reports systems reviewed and no addt'l complaints, except as documented ENT HEENT: Reports systems reviewed and no addt'l complaints, except as documented Cardiovascular Cardiovascular: Reports systems reviewed and no addt'l complaints, except as documented Respiratory/Chest Respiratory/Chest: Reports systems reviewed and no addt'l complaints, except as documented Gastrointestinal Gastrointestinal: Reports systems reviewed and no addt'l complaints, except as documented Genitourinary Genitourinary: Reports systems reviewed and no addt'l complaints, except as documented Musculoskeletal Musculoskeletal: Reports systems reviewed and no addt'l complaints, except as documented Integumentary Integumentary: Reports wounds and other Details: Open wound in the gluteal fold coccyx area that kind of wraps around and comes up near her perineum Neurologic Neurologic: Reports systems reviewed and no addt'l complaints, except as documented Psychiatric Psychiatric: Reports systems reviewed and no addt'l complaints, except as documented Endocrine Endocrinology: Reports systems reviewed and no addt'l complaints, except as documented Hematologic/Lymphatic Hematologic/Lymphatic: Reports systems reviewed and no addt'l complaints, exceptas documented Allergic/Immunologic Allergic/Immunologic: Reports systems reviewed and no addt'l complaints, except as documented Vital Signs Vital Signs Vital Signs: 03/14/25 10:22 Temperature 97.8 F Temperature Source Temporal Respiratory Rate 16 Weight Weight: 75 lb 5.547 oz Body Mass Index (BMI) 18.8 Physical Exam Const oriented x3 General Appearance: cooperative Exam Limitations: no limitations HEENT normocephalic Neck General: normal visual inspection Resp normal respiratory effort Effort and Inspection: able to speak in complete sentences Auscultation: clear to auscultation bilaterally Cardio regular rate and regular rhythm Palpation: normal PMI Rate: regular rate Rhythm: regular rhythm GI Palpation: soft and no hepatosplenomegaly external exam normal Back/Spine Cervical Spine: cervical ROM normal Thoracic Spine / Upper Back: normal to inspection Lumbar Spine / Lower Back: normal to inspection Pelvis: buttocks abnormal right (Open wound in the right coccyx gluteal fold area) Extremity General Extremity: normal exam except as noted Skin Wounds: wounds noted Wound Narrative: Open wound with depth in the right gluteal area Debridement Note Debridement Note Wound debrided: Decubitus ulcer right gluteal Laterality: Right Wound Grade/Stage: Stage IV Type of Debridement: Excisional debridement Anesthesia Used: 5% Lidocaine Gel Depth: in the subcutaneous layer and to muscle Percentage of wound debrided: 100 Instrument Used: 5mm curette Tissue Removed: Fibrin Severity: Fat Layer Exposed Amount of bleeding with debridement: Mild Bleeding Controlled with: Compression and gauze Patient tolerated procedure: Patient tolerated procedure well Post-Debridement Measurements and Additional Note: Post-Debridement Measurements/Treatment - Nurse 1 - General Ulcer Assessment Start: 03/14/25 10:21 Freq: Status: Active Protocol: ROYER Activity Type Activity Date Activity User E-sign Co-sign Detail Recorded Client Recorded Date Recorded By Document 03/14/25 10:22 DL [id number] 03/14/25 10:44 DL 03/14/25 10:22 WC - Today's Visit Information Type of service Initial Visit Arrival Mode Wheelchair Transfer Assistance Manual Transfer Assist (Other) x2 Patient Identification Verified (Name & Yes ) Patient Requires Transmission-Based No Precautions Height and Weight Height 4 ft 5 in Weight 75 lb 5.547 oz Weight in Pounds 75.3 lbs Body Mass Index (BMI) 18.8 BMI Classification Normal Vital Signs Temperature (97.8 F-99.1 F) 97.8 F Temperature Source Temporal Respiratory Rate (12-18) 16 Respiratory rate source Observation Pain Scale: 0-10 Numeric Is Patient Pain Free? Yes Communication Assessment Preferred language None Able to Read No: NonVerbal Able to Write No: NonVerbal Caregiver Communication Skills Unable To Impairment Follow Commands Teaching Assessment Preferences Verbal,Written, Demonstration Barriers to Learning None Readiness To Learn Poor Willingness to Engage in Self Management Low Activies Readiness to Engage in Self Management Low Activities Anxiety Level Calm Cooperation Cooperative Perception Coherent Interest in Health Problem Asks Questions Education Importance Acknowledges Need Does Patient Smoke tobacco or other No substances Is Patient Diabetic No - Nurse 1 - General Ulcer Measurement Start: 03/14/25 10:21 Freq: Status: Active Protocol: Activity Type Activity Date Activity User E-sign Co-sign Detail Recorded Client Recorded Date Recorded By Document 03/14/25 10:22 DL [id number] 03/14/25 10:44 DL 03/14/25 10:22 Wound Center Nurse 1 #1 R Buttocks Cluster -Current Size (cm) - Length 6.6 -Current Size (cm) - Width 4.2 -Current Size (cm) - Depth 1.8 -Total Square Cm 27.72 -Photo Taken Yes -Exudate Amt Medium -Exudate Type Serosanguineous -Wound Margin Distinct, Outline Attached -Granulation Amt Large (67-100%) -Granulation Quality [place] -Necrosis Amt None Present (0 %) -Necrotic Tissue Type Adherent Slough -Structure Exposed N/A -Texture (Makenzie-wound Skin Appearance) Scarring,Rash -Moisture (Makenzie-wound Skin Appearance) No Abnormality -Color (Makenzie-wound Skin Appearance) No Abnormality -Temperature (Makenzie-wound Skin No Abnormality Appearance) (Pt Warm) -Ulcer Cleansing Soap and Water -Foul Odor after Cleansing No -Anesthetic Used 5% Lidocaine Gel WC - Nurse 2 - General Ulcer CM Notes Start: 03/14/25 10:21 Freq: Status: Active Protocol: Activity Type Activity Date Activity User E-sign Co-sign Detail Recorded Client Recorded Date Recorded By Document 03/14/25 11:06 [facility] [id number] 03/14/25 11:24 [facility] 03/14/25 11:06 Wound Center Nurse 2 -Time 11:06 -Correct Patient Yes -Correct Side, Site, Position Yes -Correct Procedure Yes -Procedure Performed Yes -Type of Procedure Debridement -Clinical Debridement Muscle / Fascia -Tissue Removed Muscle,Fascia -Post Debridement (cm) - Length 5.5 -Post Debridement (cm) - Width 7.5 -Post Debridement (cm) - Depth 2.0 -Total Square (Post) (cm) 41.25 -Area of Debridement (cm) - Length 5.5 -Area of Debridement (cm) - Width 7.5 -Total Square (Area) (cm) 41.25 -Wound/Ulcer Outcome Not Healed -Ulcer Cleansing Rinsed/ Irrigated with Saline -Foul Odor after Cleansing No -Bioengineered Tissue No -Bleeding Controlled with Pressure -Treatment Response Procedure Tolerated Well -Debridement - Muscle / Fascia, 1st Yes 20sq cm -Debridement, Muscle/Fascia, ea addt'l 1 20sq cm or part thereof Pain Scale: 0-10 Numeric Is Patient Pain Free? Yes CAROL - Nurse 3 - General Ulcer D/C NN Start: 03/14/25 10:21 Freq: Status: Active Protocol: Activity Type Activity Date Activity User E-sign Co-sign Detail Recorded Client Recorded Date Recorded By Document 03/14/25 11:40 ML [id number] 03/14/25 11:42 ML 03/14/25 11:40 Wound Care Center Nurse 3 #1 R Buttocks Cluster -Ulcer Cleansing Soap and Water -Primary Dressing Applied Aquacel Extra, Hysept -Other Dressing dakins 0.25 -Aquacel Extra 1 -Hysept 1 Pain Scale: 0-10 Numeric Is Patient Pain Free? Yes Lab / Micro Data 03/14/25 12:18 03/14/25 12:18 Assessment/Plan Assessment/Plan (1) Decubitus ulcer of right buttock, stage 4: CODE(S): L89.314 - Pressure ulcer of right buttock, stage 4 PLAN: Wash area with antibacterial soap and water and pat dry and then pack wound with Dakin soaked gauze firmly and then on the outside open area she is touse Aquacel extra moistened with Adaptic over top and an absorbent dressing suchas ABD this will be done twice a day. Also given samples of Blayne to try and see if she tolerates that and her tube feeds for the increase in protein Lab work will obtain lab work to check for iron levels her complete blood count a comprehensive metabolic profile prealbumin Follow-up in 1 week we will go over everything and see how things are going. (2) Quadriplegic infantile cerebral palsy: CODE(S): G80.8 - Other cerebral palsy PLAN: Continue the turning and care that they are giving now to prevent any moreskin breakdowns (3) Incontinence of urine: CODE(S): R32 - Unspecified urinary incontinence QUALIFIERS: Urinary Incontinence type: continuous leakage Qualified Code(s): N39.45 - Continuous leakage PLAN: Patient has a Sage to CD that they are using for her urine output (4) Fecal incontinence: CODE(S): R15.9 - Full incontinence of feces QUALIFIERS: Fecal incontinence type: unspecified Qualified Code(s): R15.9 - Full incontinence of feces PLAN: Adopted mother states she has 1 bowel movement a day they gave her MiraLAXto keep her bowels moving (5) Celiac disease: CODE(S): K90.0 - Celiac disease (6) Milk intolerance: CODE(S): K90.49 - Malabsorption due to intolerance, not elsewhere classified (7) Malnutrition: CODE(S): E46 - Unspecified protein-calorie malnutrition QUALIFIERS: Malnutrition type: protein-calorie malnutrition Protein-calorie malnutrition severity: moderate Qualified Code(s): E44.0 - Moderate protein- calorie malnutrition (8) Anemia: CODE(S): D64.9 - Anemia, unspecified QUALIFIERS: Anemia type: iron deficiency Iron deficiency anemia type: inadequate dietary iron intake Qualified Code(s): D50.8 - Other iron deficiency anemias 03/14/25 1241 <Electronically signed by Jaimee Marshall NP COMPREHENSIVE OPHTHALMOLOGIST-C> Cosigner Signature (if applicable): CC: ~ Signed [facility] Work Phone: [phone] Radiology Diagnostic study note [facility] Imaging Services [address] [place], [place] [id number] HIP, UNI W/ Pelvis 2-3 Views MR#: [id number] Acct: [id number] Name: CLAUDINE JOSEPH Rep #: [id number] : 1990 F 34 From: Corina Walter MD PCP: Dr. Colette Goode MD Status: REG RCR Study:HIP, UNI W/ Pelvis 2-3 Views Date of Ex am: 03/14/25 Exam# [id number] Ordering Dr: Jaimee Ann NP, NP-C EXAM: XR Right Hip With Pelvis When Performed, 2 or 3 Views CLINICAL INDICATION: RBUTTOCK WOUND/R/O OSTEOMYELITIS TECHNIQUE: Two or three views of the right hip with pelvis when performed. COMPARISON: No relevant prior studies available. FINDINGS: BONES/JOINTS: No obvious radiographic evidence of osteomyelitis. However, if clinical suspicion remains high, further evaluation with 3 phase bone scan or MRI is recommended. No acute fracture. No dislocation. No erosive changesto the osseous structures. SOFT TISSUES: Soft tissue swelling. RAD/HIP, UNI W/ Pelvis 2-3 Views IMPRESSION: No obvious radiographic evidence of osteomyelitis. However, if clinical suspicion remains high, further evaluation with 3 phase bone scan or MRI is recommended. Reading [facility] CC: COMPREHENSIVE OPHTHALMOLOGIST-C Jaimee Marshall; Dr. Colette Goode MD ~ Chlorine Plant Operator: Signed [facility]07-16-2025 History and physical note [facility] [address] [place] [address] H&P Exam - Wound Care 03/14/25 1222 MR#: [id number] Acct: [id number] Name: CLAUDINE JOSEPH Rep #:[id number] : 1990 34 From: Jaimee Marshall NP COMPREHENSIVE OPHTHALMOLOGIST-C PCP: Dr. Colette Goode MD Status: REG RCR Location: History of Present Illness Date of Service: 03/14/25 Chief Complaint: Follow-up on an old coccyx wound History of Wound: Adopted mother states that she is nonverbal nonmobile 34-year-old white female with a long-term opening in her coccyx gluteal fold opening she does have Sage to CD at this time. The area has depth and is no tunneling but does come out on top near her perineal area. Adopted mom states she has been on lots of antibiotics and that there is redness around the wound and she feels itis infected again and would like it rechecked the wound has notreally been checked by a doctor for about 2 months when she lost her regular doctor down by their house. Mother and health policy nurse take care of her 22/03 she doeshave a low air mattress she does have padding for her seat cushions when she is up in a wheelchair though she is not able to hold herself up at all. Skin turgor looks good she doeshave history of malnutrition and of iron deficient anemia. Adoptive mom was here mostly for a second opinion because he is gettingupset with down by her house the wound care center at that point he has not really done anything and they just keep putting topicals on her. Today we will do wound cultures and also start packing with some Dakin's and see if that helpswith the wound but eventually she is cannot probably need a wound VAC. [facility] Medical History (Updated 03/14/25 @ 12:38 by Jaimee Marshall NP, COMPREHENSIVE OPHTHALMOLOGIST-C) Quadriplegic infantile cerebral palsy Home Medications ?Medication ?Instructions ?Recorded ?Last Taken ?Type acetaminophen 325 mg tablet (Aphen) 325 mg PO Q6H PRN fever or pain 03/14/25 Unknown History albuterol (refill) 90 mcg inhalation 03/14/25 Unkn own History mcg/actuation aerosol inhaler amikacin 1,000 mg/4 mL injection 250 mg IM Q12H Unknown History solution baclofen 50 mcg/mL intrathecal 50 mcg intrathecal Q24H 03/14/25 Unknown History solution diazepam (Valtoco) 15 mg intranasal Q4H 5 Unknown History diazepam 2 mg tablet 2 mg PO DAILY 03/14/25 Unkno wn History doxycycline monohydrate 100 mg 100 mg PO BID 03/14/25 Unknown History capsule fluconazole 100 mg tablet 100 mg PO DAILY 03/14/25 Unk nown History (Diflucan) fluticasone propionate 50 2 spray intranasal DAILY PRN nasal 03/14/25 Unknown History mcg/actuation nasal congestion spray,suspension (Aller-Kenny) ibuprofen 200 mg tablet (IBU-200) 200 mg PO Q8H Unknown History levetiracetam 100 mg/mL oral PO 03/14/25 Unknown Histo ry solution loratadine 10 mg tablet 10 mg PO DAILY 03/14/25 Unkn own History medroxyprogesterone 150 mg/mL 150 mg IM QMONTH 5 Unknown History intramuscular suspension (Depo-Provera) omeprazole 40 mg capsule,delayed 40 mg PO DAILY Unknown History release polyethylene glycol 3350 17 17 g PO DAILY 03/14/25 Unk nown History gram/dose oral powder (ClearLax) promethazine 12.5 mg rectal 12.5 mg MS Q6H nausea 02/27 02/21 Unknown History suppository singular 03/14/25 Unknown History tramadol 50 mg tablet 50 mg PO DAILY 03/14/25 Unkn own History Allergy/AdvReac Type Severity Reaction Status Date / Time Penicillins (PCN) AdvReac Blisters Verified 03/14/25 10:49 ROS Constitutional Constitutional: Reports systems reviewed and no addt'l complaints, except as documented Eyes Eyes: Reports systems reviewed and no addt'l complaints, except as documented ENT HEENT: Reports systems reviewed and no addt'l complaints, except as documented Cardiovascular Cardiovascular: Reports systems reviewed and no addt'l complaints, except as documented Respiratory/Chest Respiratory/Chest: Reports systems reviewed and no addt'l complaints, except as documented Gastrointestinal Gastrointestinal: Reports systems reviewed and no addt'l complaints, except as documented Genitourinary Genitourinary: Reports systems reviewed and no addt'l complaints, except as documented Musculoskeletal Musculoskeletal: Reports systems reviewed and no addt'l complaints, except as documented Integumentary Integumentary: Reports wounds and other Details: Open wound in the gluteal fold coccyx area that kind of wraps around and comes up near her perineum Neurologic Neurologic: Reports systems reviewed and no addt'l complaints, except as documented Psychiatric Psychiatric: Reports systems reviewed and no addt'l complaints, except as documented Endocrine Endocrinology: Reports systems reviewed and no addt'l complaints, except as documented Hematologic/Lymphatic Hematologic/Lymphatic: Reports systems reviewed and no addt'l complaints, exceptas documented Allergic/Immunologic Allergic/Immunologic: Reports systems reviewed and no addt'l complaints, except as documented Vital Signs Vital Signs Vital Signs: 03/14/25 10:22 Temperature 97.8 F Temperature Source Temporal Respiratory Rate 16 Weight Weight: 75 lb 5.547 oz Body Mass Index (BMI) 18.8 Physical Exam Const oriented x3 General Appearance: cooperative Exam Limitations: no limitations HEENT normocephalic Neck General: normal visual inspection Resp normal respiratory effort Effort and Inspection: able to speak in complete sentences Auscultation: clear to auscultation bilaterally Cardio regular rate and regular rhythm Palpation: normal PMI Rate: regular rate Rhythm: regular rhythm GI Palpation: soft and no hepatosplenomegaly external exam normal Back/Spine Cervical Spine: cervical ROM normal Thoracic Spine / Upper Back: normal to inspection Lumbar Spine / Lower Back: normal to inspection Pelvis: buttocks abnormal right (Open wound in the right coccyx gluteal fold area) Extremity General Extremity: normal exam except as noted Skin Wounds: wounds noted Wound Narrative: Open wound with depth in the right gluteal area Debridement Note Debridement Note Wound debrided: Decubitus ulcer right gluteal Laterality: Right Wound Grade/Stage: Stage IV Type of Debridement: Excisional debridement Anesthesia Used: 5% Lidocaine Gel Depth: in the subcutaneous layer and to muscle Percentage of wound debrided: 100 Instrument Used: 5mm curette Tissue Removed: Fibrin Severity: Fat Layer Exposed Amount of bleeding with debridement: Mild Bleeding Controlled with: Compression and gauze Patient tolerated procedure: Patient tolerated procedure well Post-Debridement Measurements and Additional Note: Post-Debridement Measurements/Treatment WC - Nurse 1 - General Ulcer Assessment Start: 03/14/25 10:21 Freq: Status: Active Protocol: ROYER Activity Type Activity Date Activity User E-sign Co-sign Detail Recorded Client Recorded Date Recorded By Document 03/14/25 10:22 LORI [id number] 03/14/25 10:44 DL 03/14/25 10:22 WC - Today's Visit Information Type of service Initial Visit Arrival Mode Wheelchair Transfer Assistance Manual Transfer Assist (Other) x2 Patient Identification Verified (Name & Yes ) Patient Requires Transmission-Based No Precautions Height and Weight Height 4 ft 5 in Weight 75 lb 5.547 oz Weight in Pounds 75.3 lbs Body Mass Index (BMI) 18.8 BMI Classification Normal Vital Signs Temperature (97.8 F-99.1 F) 97.8 F Temperature Source Temporal Respiratory Rate (12-18) 16 Respiratory rate source Observation Pain Scale: 0-10 Numeric Is Patient Pain Free? Yes Communication Assessment Preferred language None Able to Read No: NonVerbal Able to Write No: NonVerbal Caregiver Communication Skills Unable To Impairment Follow Commands Teaching Assessment Preferences Verbal,Written, Demonstration Barriers to Learning None Readiness To Learn Poor Willingness to Engage in Self Management Low Activies Readiness to Engage in Self Management Low Activities Anxiety Level Calm Cooperation Cooperative Perception Coherent Interest in Health Problem Asks Questions Education Importance Acknowledges Need Does Patient Smoke tobacco or other No substances Is Patient Diabetic No - Nurse 1 - General Ulcer Measurement Start: 03/14/25 10:21 Freq: Status: Active Protocol: Activity Type Activity Date Activity User E-sign Co-sign Detail Recorded Client Recorded Date Recorded By Document 03/14/25 10:22 LORI [id number] 03/14/25 10:44 DL 03/14/25 10:22 Wound Center Nurse 1 #1 R Buttocks Cluster -Current Size (cm) - Length 6.6 -Current Size (cm) - Width 4.2 -Current Size (cm) - Depth 1.8 -Total Square Cm 27.72 -Photo Taken Yes -Exudate Amt Medium -Exudate Type Serosanguineous -Wound Margin Distinct, Outline Attached -Granulation Amt Large (67-100%) -Granulation Quality [place] -Necrosis Amt None Present (0 %) -Necrotic Tissue Type Adherent Slough -Structure Exposed N/A -Texture (Makenzie-wound Skin Appearance) Scarring,Rash -Moisture (Makenzie-wound Skin Appearance) No Abnormality -Color (Makenzie-wound Skin Appearance) No Abnormality -Temperature (Makenzie-wound Skin No Abnormality Appearance) (Pt Warm) -Ulcer Cleansing Soap and Water -Foul Odor after Cleansing No -Anesthetic Used 5% Lidocaine Gel CAROL - Nurse 2 - General Ulcer CM Notes Start: 03/14/25 10:21 Freq: Status: Active Protocol: Activity Type Activity Date Activity User E-sign Co-sign Detail Recorded Client Recorded Date Recorded By Document 03/14/25 11:06 BM [id number] 03/14/25 11:24 BM 03/14/25 11:06 Wound Center Nurse 2 -Time 11:06 -Correct Patient Yes -Correct Side, Site, Position Yes -Correct Procedure Yes -Procedure Performed Yes -Type of Procedure Debridement -Clinical Debridement Muscle / Fascia -Tissue Removed Muscle,Fascia -Post Debridement (cm) - Length 5.5 -Post Debridement (cm) - Width 7.5 -Post Debridement (cm) - Depth 2.0 -Total Square (Post) (cm) 41.25 -Area of Debridement (cm) - Length 5.5 -Area of Debridement (cm) - Width 7.5 -Total Square (Area) (cm) 41.25 -Wound/Ulcer Outcome Not Healed -Ulcer Cleansing Rinsed/ Irrigated with Saline -Foul Odor after Cleansing No -Bioengineered Tissue No -Bleeding Controlled with Pressure -Treatment Response Procedure Tolerated Well -Debridement - Muscle / Fascia, 1st Yes 20sq cm -Debridement, Muscle/Fascia, ea addt'l 1 20sq cm or part thereof Pain Scale: 0-10 Numeric Is Patient Pain Free? Yes - Nurse 3 - General Ulcer D/C NN Start: 03/14/25 10:21 Freq: Status: Active Protocol: Activity Type Activity Date Activity User E-sign Co-sign Detail Recorded Client Recorded Date Recorded By Document 03/14/25 11:40 ML [id number] 03/14/25 11:42 ML 03/14/25 11:40 Wound Care Center Nurse 3 #1 R Buttocks Cluster -Ulcer Cleansing Soap and Water -Primary Dressing Applied Aquacel Extra, Hysept -Other Dressing dakins 0.25 -Aquacel Extra 1 -Hysept 1 Pain Scale: 0-10 Numeric Is Patient Pain Free? Yes Lab / Micro Data 03/14/25 12:18 03/14/25 12:18 Assessment/Plan Assessment/Plan (1) Decubitus ulcer of right buttock, stage 4: CODE(S): L89.314 - Pressure ulcer of right buttock, stage 4 PLAN: Wash area with antibacterial soap and water and pat dry and then pack wound with Dakin soakedgauze firmly and then on the outside open area she is touse Aquacel extra moistened with Adaptic over top and an absorbent dressing suchas ABD this will be done twice a day. Also given samples of Blayne to try and see if she tolerates that and her tube feeds for the increase in protein Lab work will obtain lab work to check for iron levels her complete blood count a comprehensive metabolic profile prealbumin Follow-up in 1 week we will go over everything and see how things are going. (2) Quadriplegic infantile cerebral palsy: CODE(S): G80.8 - Other cerebral palsy PLAN: Continue the turning and care that they are giving now to prevent any moreskin breakdowns (3) Incontinence of urine: CODE(S): R32 - Unspecified urinary incontinence QUALIFIERS: Urinary Incontinence type: continuous leakage Qualified Code(s): N39.45 - Continuous leakage PLAN: Patient has a Sage to CD that they are using for her urine output (4) Fecal incontinence: CODE(S): R15.9 - Full incontinence of feces QUALIFIERS: Fecal incontinence type: unspecified Qualified Code(s): R15.9 - Full incontinence of feces PLAN: Adopted mother states she has 1 bowel movement a day they gave her MiraLAXto keep her bowels moving (5) Celiac disease: CODE(S): K90.0 - Celiac disease (6) Milk intolerance: CODE(S): K90.49 - Malabsorption due to intolerance, not elsewhere classified (7) Malnutrition: CODE(S): E46 - Unspecified protein-calorie malnutrition QUALIFIERS: Malnutrition type: protein-calorie malnutrition Protein-calorie malnutrition severity: moderate Qualified Code(s): E44.0 - Moderate protein- calorie malnutrition (8) Anemia: CODE(S): D64.9 - Anemia, unspecified QUALIFIERS: Anemia type: iron deficiency Iron deficiency anemia type: inadequate dietary iron intake Qualified Code(s): D50.8 - Other iron deficiency anemias 03/14/25 1241 Cosigner Signature (if applicable): CC: ~ Signed [facility]06-17-2025 History of Present illness Narrative* Celena Fields MD - 02/13/2025 2:00 PM EDT [facility] Toxin Procedure Injection Note 02/13/25 Chief Complaint: Botox injections for spasticity History of Present Illness: Ms. Claudine Joseph is a 34 year old female with history of cerebral palsy, epilepsy and severe spasticity with intrathecal baclofen pump who presents to spasticity clinic today for repeat botox injections for spasticity. At baseline, Claudine is wheelchair bound and makes 10-12 vocal sounds that her mother can recognize. She is accompanied by her mother, Peg today. First botox injections were given on for upper extremity spasticity and most recent injections were given on 11/07/24. Claudine had excellent response to her injections as usual and was able to move her arms better and has improved flexibility that improves ease of care. Since our last visit, Claudine had a period of time where she was having a seizure once per week. She also had an episode of apnea and asystole requiring CPR from her mother at home which was understandably very distressing to Peg. Luckily Peg is well trained on CPR and her training kicked in right away and Claudine came back within a few minutes. Physical examination: PYRAMIDAL: Modified Estefani Score Left Right Upper extremity Arm adduction (pectoralis) 2 2 Elbow flexion (biceps, brachialis, brachioradialis) 2 3 Elbow extension (triceps) 3 2 Pronation (pronator teres, pronator quadratus) 2 2 Wrist flexion (FCR, FCU) 4 (contracted) 2 (ulnar deviation) MCP flexion (lumbricals) 0 0 PIP flexion (FDS) 1 2 DIP flexion (FDP) 1 2 Thumb opposition (opponens pollicis) 2 2 Thumb flexion (FPL) 0 3 Procedure: BOTULINUM TOXIN PROCEDURE INJECTION NOTE: Risks, side effects and benefits were reviewed. Consent was obtained from the patient. Onabotulinum toxin A was mixed in standard fashion: 7 100-unit vials are used including 1 100-unit vial of sample botox. 1 mL of preservative free saline is introduced into each vial. The resulting solution contains 100 units/mL. I used a 26 gauge injectable needle for accurate placement of botulinum toxin into the muscles. A 30 gauge needle was used for injection of the opponens pollicis bilaterally for comfort. All areas to be injected were cleaned with alcohol swabs, and the injectable needle is aspirated prior to each deposition of botulinum toxin. EMG guidance was used. Extremities Injected (R/L): left upper extremity and right upper extremity Muscle Left Prior Units (11/07/24) Left Current Units (02/13/25) Right Prior Units (11/07/24) Right Current Units (02/13/25) Upper Extremity Teres major Pectoralis Major 75 75 75 75 Brachialis 75 75 75 75 Brachioradialis Biceps brachii 50 50 50 50 Triceps 50 50 50 50 Pronator teres Pronator quadratus Flexor carpi radialis (FCR) Flexor carpi ulnaris (FCU) 25 25 Lumbricals Flexor digitorum superficialis (FDS) 25 25 Flexor digitorum profundus (FDP) 25 25 Flexor pollicis longus (FPL) 25 25 Flexor pollicis brevis (FPB) Opponens pollicis 50 50 50 50 Adductor pollicis Lower Extremity Adductor longus Adductor brevis Rectus femoris Vastus Intermedius Vastus Lateralis Vastus Medialis Biceps femoris long head Semitendinosus Semimembranosus Biceps femoris short head Gastrocnemius - lateral and medial heads Soleus Tibialis posterior Flexor hallucis longus Flexor digitorum longus Flexor digitorum brevis Extensor hallucis longus Total 700 700 Assessment and Plan: Ms. Claudine Joseph is a 34 year old female with history of cerebral palsy, epilepsy and severe spasticity with intrathecal baclofen pump who presents to spasticity clinic today for repeat botox injections for spasticity. At baseline, Claudine is wheelchair bound and makes 10-12 vocal sounds that her mother can recognize. She has spasticity of bilateral upper extremities that we target with botox.Botox has resulted in improved flexibility, independent movement and provided better ease of care for her mother. She had excellent response to her last injections and we repeated the same injections today. Claudine requires 700 units of botox due to the severity of spasticity and number of affected in muscles intwo separate limbs. Plan: - Follow up in 90 days for repeat botulinum toxin injections. - Following your injections today, it will take up to 14 days to notice the full benefit. - Please call with any questions or concerns. - Please also send me a 5to1 message in about four weeks to update us on your response to botox while it is at it's maximum effectiveness. This will allow us to adjust as needed at future visits. We recommend practicing good spasticity hygiene: - Stretch at least three times daily. We recommend stretching upon waking, mid- day, and before bed. - Stop to stretch during long periods of sitting such as a long car ride. - Stay adequately hydrated. - Treat constipation, urinary retention and bladder infections as these issues can worsen symptoms of spasticity. - Avoid cold temperatures when you can. Cold tends to worsen spasticity. - Check dependant areas of the body every day for redness or skin breakdown. - Exercise! Movement is camejo. Try yoga, magan chi, or water aerobics. Celena Fields MD Neuroimmunology & Multiple Sclerosis [facility] documented in this [id number] [facility] Telephone encounter Note* Telephone Encounter - Boubacar Mclean MA - 01/31/2025 12:20 PM EDT Pharmacy requires a new script due to the 2 dose box being D/C'd by the landscape painter. Please review. [id number] Miscellaneous Notes* Telephone Encounter - Boubacar Mclean MA - 01/31/2025 12:20 PM EDT Pharmacy requires a new script due to the 2 dose box being D/C'd by the landscape painter. Please review. documented in this [id number] NotePROCEDURE: ULTRASOUND RENAL, 01/29/2025 2:57 PM EDT INDICATIONS: Kidney stone. COMPARISON: 02/04/2024. TECHNIQUE: Bilateral renal and bladder sonogram with color-flow assessment FINDINGS: Right kidney: 8.6 x 4.1 x 4.3 cm. Left kidney: 8.4 x 3.7 x 3.7 cm. There is decreased anatomic resolution given poor acoustic transmission in this patient. Patient unable to tolerate adequate positioning. Procedure performed in a wheelchair. Right renal cortex 1.0, left 1.2 cm. Renal parenchyma is normal in echogenicity. Intact renal vascularity is seen with normal resistive indices. No hydronephrosis. 0.9 cm upper pole right nephrolithiasis considered. Left nephrolithiasis is not confirmed. No focal renal abnormality suspected. Urinary bladder is decompressed. IMPRESSION: 1. Decreased anatomic resolution given patient's inability to tolerate adequate positioning. Procedure performed in a wheelchair. This decreases sensitivity and specificity of the exam. 2. No hydronephrosis. 3. Upper pole right nephrolithiasis. 4. No focal renal abnormality. 5. Decompressed urinary bladder.[facility]04-17-2025 History of Present illness Narrative* Ruma Godwin, DIRECTOR OF GLOBAL SALES - 12/14/2024 2:00 PM EDT [facility] Spasticity Clinic: Intrathecal Baclofen Therapy Progress Note 12/14/2024 CHIEF COMPLAINT Spasticity follow up from 12/13/2023 IMPRESSIONS AT LAST VISIT / INTERM HISTORY Claudine Joseph is a 33 y/o female with medically refractory, severe spasticity secondary to CP managed with intrathecal baclofen therapy who presents for annual ITB pump visit and pump refill. Mom reports no change in spasticity, BUE improvement since botox therapy started. She is pleased with having pump refilled in the home. Based on today s history, physical examination and review of ITB telemetry, I feel her severe spasticity is under adequate control. I refilled her pump and maintained her current dose of 651 mcg/day. CONTEMPORARY HISTORY Claudine presents to clinic with her mom Peg and friend in transport chair for ITB therapy annual visit. Peg reports no change in spasticity. Feels that current dose is appropriate. She is please with home refills with [facility]. Peg will contact our office if pump dose adjustment is needed. She is following with Dr. Fields for botox therapy. Claudine has open area on bottom, denies any recent infections. She follows with Dr. Yany Wright in Epilepsy clinic. OTHER RELEVANT HISTORY [facility] - 12/14/24 1358 General Change in weight No Fever No Chills No Night Sweats No Cough No Shortness of Breath No Joint pain / swelling No Muscle pain / cramps Yes Chest pain No Palpitations No Nausea / Vomiting No Neurologic Double vision No Blurred / decreased vision No Difficulty swallowing No Difficulty with speech No Numbness / tingling No Painful skin sensations No Muscle weakness No Heat sensitivity No Motor fatigue Yes Incoordination/ poor balance Yes Difficulty walking Yes Recent Falls No L'hermitte No Difficulty with thinking and memory No Pathologic fatigue No Depression No Anxiety No Urinary urgency No Urinary frequency No Urinary retention / hesitancy No Recent Urinary Tract Infections No Bowel complaints No Sexual Dysfunction No Poor sleep No Headaches No Recent Seizures Yes She has a past medical history of Acute respiratory failure ([facility]), Allergic rhinitis, Anoxic brain damage ([facility]), Aspiration, chronic pulmonary, Bowel and bladder incontinence, Cerebral palsy ([facility]), Chronic kidney disease, Chronic osteomyelitis of pelvic region, right ([facility]) (2018), Chronic respiratory failure with hypoxia ([facility]), Constipation, COVID-19 (06/2020), Epilepsy ([facility]), GERD (gastroesophageal reflux disease), MRSA (methicillin resistant Staphylococcus aureus) (04/2016), Muscle spasticity, Nonverbal, PEG (percutaneous endoscopic gastrostomy) status ([facility]), Presence of intrathecal baclofen pump (1999), Restrictive lung disease due to kyphoscoliosis, Urine retention, and Wheelchair bound. She has a past surgical history that includes Peg Tube Insertion; Baclofen pump implantation; Salivary gland surgery; Back surgery (1999); Cholecystectomy; Pain Pump Revision (N/A, 07/27/2016); Laminectomy Decomp Thoracic Multi Level (N/A, 07/27/2016); Incision And Drainage Lower Extremity (Right, 12/02/2018); Intrathecal Pump Removal (Bilateral, 07/15/2022); Tracheostomy (N/A, 05/04/2024); and Interventional Radiology (N/A, 05/01/2024). She reports that she has never smoked. She has never used smokeless tobacco. She reports that she does not drink alcohol and does not use drugs. Social History Social History Narrative Not on file She She was adopted. Family history is unknown by patient. Allergies[1] She has a current medication list which includes the following prescription(s): acetaminophen, acetic acid, baclofen, epidiolex, cholecalciferol (vitamin d3), diazepam, valtoco, doxycycline monohydrate, fluconazole, fluticasone propionate, gentamicin, guaifenesin, guaifenesin, lamotrigine, lamotrigine, levetiracetam, lidocaine-prilocaine, loratadine, medroxyprogesterone, montelukast, multivitamin/iron/folic acid, omeprazole, polyethylene glycol, prednisone, and promethazine. PHYSICAL EXAMINATION Vital Signs: Blood pressure 112/74, pulse 93. General Appearance: in no apparent distress Eyes: Anicteric sclerae. Moist conjunctivae. No lid edema noted. HENT: Head atraumatic, normocephalic. Oropharynx clear. Moist mucous membranes. Neck/ Thyroid:trachea midline. Supple. No massess. No thyromegaly. Lungs: Normal respiratory effort. No intercostal retractions. No dyspnea during conversation. Abdomen: soft, non-distended Extremities: no clubbing, cyanosis, pedal edema, ulcer nor wound noted. Skin: warm, dry, no rash, no ecchymoses, no petechiae noted, pressure wound coccyx Pysch: non verbal NEUROLOGICAL EXAMINATION Mental Status is awake and tracks examiner in room. Denies any pain with ROM Modified Estefani Score: EE EF Hip add KE KF DF PF Right 1 0 0 0 Left 2 1 0 0 Wheelchair bound ITB TELEMETRY and OTHER DATA I have independently reviewed the ITB pump system telemetry. ASSESSMENT Claudine Joseph is a 34 y/o female with medically refractory, severe spasticity secondaryto CP managed with intrathecal baclofen therapy who presents for annual ITB pump visit today. Mom reports improvement in spasticity since botox therapy started. She feels that current ITB dose is appropriate and is please with [facility] providing in home pump refills. Based on today s history, physical examination and review of ITB telemetry, I feel her severe spasticity is under adequate control. I interrogated her pump and maintained her current dose of 651 mcg/day. Current ITB goals include: decrease cramps and spasms, spasticity related pains, loosen thelegs, loosen the arms, improve options for seating and positioning, help prevent contractures and bed sores, improve caregiver ease of care Other associated diagnoses / active problems for this visit include: weakness, spasticity, requireswheelchair / scooter for mobility, pressure wound coccyx INTRATHECAL BACLOFEN SYSTEM INFORMATION FOR Claudine Joseph Severe Spasticity due to: Cereberal palsy Implanted: 07/15/[address] Bridgette RENE date: February 2029 (<65 months) Synchromed I IPump Size: 40 mL Willard Location: 1:30 Catheter Tip Placement: PLAN REGARDING INTRATHECAL BACLOFEN THERAPY First Medication Brand: Baclofen Concentration: 2000 mcg/mL Total Daily Dose: 651 mcg/day 1. Pump Programming: Simple Continuous 2. Pump Esto Refill: Not required today 3. Programming Adjustments today: annual spasticity visit; [facility] provides home refills; maintained current dose 651 mcg/day 4. ITB system Procedures today: pump computer interrogation 5. Last reservoir refill date: 10/26/24 6. Pump Low Esto Alarm Date: 02/19/25 7. Claudine Joseph and/or her caregivers have verbal consents to all of the ITB system adjustments and procedures performed today PLAN REGARDING ADJUNCTIVE SPASTICITY THERAPIES 1. Noxious stimulation worsens spasticity. This included when the weather is cold outside, urinary tract infections and other infections, pressure sores, poor seating or sleeping ergonomics, constipation and urinary retention. she is encouraged to report any of these symptoms. 2. We recommend practicing good spasticity hygiene: A. Stretch upon waking, partway through the day, and before bed every day B. Stay adequately hydrated C. Treat constipation, urinary retention, bladder infections D. Check dependant areas of the body every day for redness / skin breakdown E. Exercise! Movement is camejo. Try yoga, magan chi, or water aerobics. D. Stop to stretch during long periods of sitting (long car ride, business meeting) F. Don't get too cool. Cold often worsens spasticity. PLAN REGARDING FOLLOW UP We will schedule follow up in 1 year and will coordinate with Dr. Pee bateman appointment Spring 2025. We recommend continue using [facility] for in home pump refills. I strongly recommend that she keep an up-to-date emergency bottle of oral baclofen with her at all times to take for withdrawal symptoms. I also recommend that she keep her [employer] identification card with our clinic contact information at all times. [facility] can be reached for emergencies and after hours by calling the [facility] at . PATIENT AND CARE PROVIDER EDUCATION You can learn more about spasticity and ITB therapy at the following website: [email or web address] If you have a smart phone then we recommend you download the free pump partner application as well. It is a resource for ITB education and tracking your personalized therapy. SYNCHROMED II ITB SYSTEM The intrathecal baclofen pump system is the way our treatment team gives baclofen directly into thespinal fluid. The system consists of a catheter (a small, flexible tube) and a pump. The pump -- a round metal disc, about one inch thick and three inches in diameter -- is surgically placed under the skin of the abdomen near the waistline. The pump stores and releases prescribed amounts of medicine through the cathete directly to the spinal fluid. With a programmable pump, a tiny motor moves themedication from the pump reservoir through the catheter. Using an external it programmer analyst, your treatment team can make adjustments in the dose, rate, and timing of the medication. Continuously delivers baclofen in small doses directly to the spinal fluid, increasing the therapeutic benefits and causing fewer and less severe side effects than the oral medication. Patients with a pump must return to their doctor's office for pump refills and medication adjustments, typically every 1-3 months. ITB SYSTEM MAINTENANCE AND REPAIR The catheter may kink, break or dislodge in up to 10% of cases and would require a surgery to revise it. The Synchromed II pump requires replacement for end of battery life within 7 years. This will require a surgery. The catheter is not required to be replaced, just the pump. INTRATHECAL BACLOFEN WITHDRAWAL Signs and symptoms of baclofen withdrawal often include diffuse body itching, increased stiffness and fever. I have reminded her to take 20mg of oral baclofen and contact our office if she has these symptoms. she may need to be seen in the emergency department. The baclofen withdrawal syndrome can progress to include confusion, sedation and even coma. In severe cases baclofen withdrawal can lead to kidney damage, seizures and possibly . A lumbar puncture with an injection of 50mcg intrathecal baclofen in the emergency department is often the best treatment to address severe balcofen withdrawal symptoms. INTRATHECAL BACLOFEN OVERDOSE Signs and symptoms of baclofen overdose often include sedation and confusion and most commonly occur recently following an ITB refill/program adjustment. I recommend Claudine Joseph contactour office prompts if these symptoms occur. The baclofen overdose syndrome can progress to include coma, seizures, respiratory and cardiac depression and possibly . I have reminded her to contact our office and go to the emergency room if she experiences these symptoms. A high volume lumbar puncture (removing 40cc of both CSF and intrathecal baclofen) in the emergency department is often thebest treatment for severe baclofen overdose symptoms. ITB SYSTEM INFECTION Infection of the pump system can lead to meningitis (severe brain infection) and can be possibly fatal. Signs and symptoms of pump infection can include redness, swelling, or pain around the pump or surgical scar on the back. Fever and a stiff neck are also common. I recommend that Claudine Joseph go to the Emergency Department if she has any of signs/symptoms of pump infection. MRI SCANNING Synchromed II ITB pumps are MRI compatible including 3T strength scanners. The pump stops pumping temporarily when the patient is moved near the MRI machine. The pump automatically restarts once the patient moves away from the MRI machine. We follow a clinic best practice of interrogating the pump following MRI scans to ensure the ITB pump has restarted. This can often be arranged to be done by [employer] Event Organ[employer] if scheduled during business hours. We recommend AGAINST any MRI scans scheduled outside of business hours. EDUCATION: HOT TUBs, STEAM ROOMS, SAUNAS AND TANNING BED We recommend patients avoid these, especially if over 102 degrees. Heating up your body causes the ITB pump to potential increase its flow rate, which could cause overdose/. EDUCATION: SCUBA DIVING We recommend that an ITB patient avoid depths below 33 feet (10 meters). Diving lower than this could permanently damage the pump. Also as you descend and the pressure around your body increases, pump flow can decrease. This could lead to baclofen withdrawal/. EDUCATION REGARDING DAYLIGHT SAVINGS TIME The clock inside the pump does not adjust for daylight savings time changes (spring forward and fall backwards). If you are on flex dosing or bolus dosing programming then your dosing will becomeshifted an hour, which may cause problems for the patient. The pump clock only corrects for daylight savings time after being interrogated by a it programmer analyst. The flex/bolus dosing patient should schedule a visit after a time change to reset their pump clocks. I spent 30 minutes face to face with the patient today. Over half the time was spent counseling regarding her spasticity as well as it's underlying medical condition, as well as her coordinating care.Thank you very much for allowing me to participate in this patient's care and please do not hesitate to contact me with questions or concerns. Sincerely, Ruma Godwin MS, BSN, ACNP- Acute Care Nurse Practitioner [facility] [address] [place], [address] [place] [address] Office [phone] [1] Allergies Allergen Reactions Levaquin [Levofloxacin] Rash, flushing with RUE arm swelling. Augmentin [Amoxicillin-Pot Clavulanate] Rash Per mother- tolerates Zosyn, unable to tolerate amoxil (blisters upper extremity) Lactose Intolerance [Lactase] Penicillins Other (See Comments) Blisters- amoxil Ragweed Unknown documented in this [id number] NoteR[facility]03-[facility]-20[facility] History of Present illness Narrative* Celena Fields MD - 11/07/2024 11:00 AM EDT [facility] Toxin Procedure Injection Note 11/07/24 Chief Complaint: Botox injections for spasticity History of Present Illness: Ms. Claudine Joseph is a 34 year old female with history of cerebral palsy, epilepsy and severe spasticity with intrathecal baclofen pump who presents to spasticity clinic today for repeat botox injections for spasticity. At baseline, Claudine is wheelchair bound and makes 10-12 vocal sounds that her mother can recognize. She is accompanied by her mother, Peg today. First botox injections were given on for upper extremity spasticity and most recent injections were given on 06/14/24. She has had improved flexibility, independent movement and better ease of care from her mother since starting botox. At our last visit, we added botox to the right flexor pollicis longus due to spasticity of thumb flexion at this joint. We kept doses the same in other regions as she has had positive response to these injections in the past. Claudine got her tracheostomy out since the last time she was here. Claudine seems much more comfortable without it. Claudine always does really well after botox per her mother and caregiver. Arms loosened up post botox and were able to move easier. Fingers were no longer digging into the palms. Her fingers are moreextended and she is able to extend thumb. She actually uses her left hand to touch buttons on one of her toys. They can tell that she is more alert today and reacting to the injections. Physical examination: PYRAMIDAL: Mental status: awake with eyes open. Responds to injections and cold numbing spray by opening her mouth. Modified Estefani Score Left Right Upper extremity Arm adduction (pectoralis) 2 2 Elbow flexion (biceps, brachialis, brachioradialis) 3 3 Elbow extension (triceps) 2 2 Pronation (pronator teres, pronator quadratus) 2 2 Wrist flexion (FCR, FCU) 4 (contracted) 2 (ulnar deviation) MCP flexion (lumbricals) 0 0 PIP flexion (FDS) 1 2 DIP flexion (FDP) 0 2 Thumb opposition (opponens pollicis) 2 2 Thumb flexion (FPL) 0 3 GAIT: non-ambulatory Procedure: BOTULINUM TOXIN PROCEDURE INJECTION NOTE: Risks, side effects and benefits were reviewed. Consent was obtained from the patient. Onabotulinum toxin A was mixed in standard fashion: 7 100-unit vials are used including 1 100-unit vial of sample botox. 1 mL of preservative free saline is introduced into each vial. The resulting solution contains 100 units/mL. I used a 26 gauge injectable needle for accurate placement of botulinum toxin into the muscles. A 30 gauge needle was used for injection of the bilateral opponens pollicis for comfort. All areas to be injected were cleaned with alcohol swabs, and the injectable needle is aspirated prior to each deposition of botulinum toxin. EMG guidance was used. Extremities Injected (R/L): left upper extremity and right upper extremity Muscle Left Prior Units (06/14/24) Left Current Units (11/07/24) Right Prior Units (06/14/24) Right Current Units (11/07/24) Upper Extremity Teres major Pectoralis Major 75 75 75 75 Brachialis 75 75 75 75 Brachioradialis Biceps brachii 50 50 50 50 Triceps 50 50 50 50 Pronator teres Pronator quadratus Flexor carpi radialis (FCR) Flexor carpi ulnaris (FCU) 25 25 Lumbricals Flexor digitorum superficialis (FDS) 25 25 Flexor digitorum profundus (FDP) 25 25 Flexor pollicis longus (FPL) 25 25 Flexor pollicis brevis (FPB) Opponens pollicis 50 50 50 50 Adductor pollicis Lower Extremity Adductor longus Adductor brevis Rectus femoris Vastus Intermedius Vastus Lateralis Vastus Medialis Biceps femoris long head Semitendinosus Semimembranosus Biceps femoris short head Gastrocnemius - lateral and medial heads Soleus Tibialis posterior Flexor hallucis longus Flexor digitorum longus Flexor digitorum brevis Extensor hallucis longus Total 700 700 Assessment and Plan: Ms. Claudine Joseph is a 34 year old female with history of cerebral palsy, epilepsy and severe spasticity with intrathecal baclofen pump who presents to spasticity clinic today for repeat botox injections for spasticity. At baseline, Claudine is wheelchair bound and makes 10-12 vocal sounds that her mother can recognize. She has spasticity of bilateral upper extremities that we target with botox.Botox has resulted in improved flexibility, independent movement and provided better ease of care for her mother. She had excellent response to her last injections and we repeated the same injectionstoday. Claudine requires 700 units of botox due to the severity of spasticity and number of affectedin muscles in two separate limbs. Plan: - Follow up in 90 days for repeat botulinum toxin injections. - Following your injections today, it will take up to 14 days to notice the full benefit. - Please call with any questions or concerns. - Please also send me a [phone] message in about four weeks if you have updates on Claudine's response to botox while it is at it's maximum effectiveness. This will allow us to adjust as needed at future visits. - Claudine has required >600 units of botox since 10/2023 and only has 600 approved through insurance. Now that she is stable on this dose, we will inquire about getting 700 units approved for future visits. We recommend practicing good spasticity hygiene: - Stretch at least three times daily. We recommend stretching upon waking, mid- day, and before bed. - Stop to stretch during long periods of sitting such as a long car ride. - Stay adequately hydrated. - Treat constipation, urinary retention and bladder infections as these issues can worsen symptoms of spasticity. - Avoid cold temperatures when you can. Cold tends to worsen spasticity. - Check dependant areas of the body every day for redness or skin breakdown. - Exercise! Movement is camejo. Try yoga, magan chi, or water aerobics. Celena Fields MD Neuroimmunology & Multiple Sclerosis [facility] documented in this [id number] [id number] Instructions* Patient Instructions* Yany Wright CNP - 11/06/2024 3:07 PM EDT Call [phone] and Press 1 or MyChart with questions, concerns or any seizure activity. I did change the Valtoco to 15 mg, 7.5 mg in each nares to equal 15 mg with any seizure or seizure cluster. I sent the prescription to your pharmacy. I sent prescriptions for lamotrigine and Valtoco to the [facility] pharmacy. I sent prescription for Epidiolex to the [facility] specialty pharmacy. documented in this [id number] NoteVideo Visit [facility] MEDICAL OFFICE [facility], NEUROSCIENCE [address] [place] [address] [address] [facility] [phone] Via Real-time Synchronous Audiovisual [facility] 11/06/2024 Yany Wright CNP Provider Location: [facility] Patient Location Continuing Education Instructor: None Patient Location: Patient's Home Patient: Claudine Joseph Date of : 1990 (34 y.o. female) PCP: Marielle Duque MD Video Visit Consent Statement: I discussed risks, benefits and alternatives of a real-time synchronous audiovisual consultation with the patient (and any accompanying persons) including the risks that the patient's personal health details and medical records will be discussed over real-time, synchronous, interactive video/audio/telecommunication technology, the visit will not be recorded without the express consent of both the provider and the patient, and that there are some limitations compared to [id number] evaluations. We elected to proceed. Chief Complaint: Follow-up for Seizures (Pt calling in for follow up. Pt health policy nurse reports the patient is still having seizure activity. ) 34 y.o. female with CP in setting of Anoxic Brain Injury with history of Spasticity, MRSA, ARF, Kidney Stones and Seizures, follows with Dr. Richar Talbert, last follow-up in 08/14/2024 Video encounter. Mom reports recently in h trach and ventilator removed. Reprots continuing to have seizures but reports doing well. Interval History: Mom reports stoma healing nicely. Off the vent. Reports trach removed. Reports every other day little seizure. Reports was only giving Claudine 7.5 mg, instead of 15 mg of Valtoco and reports did well but now giving her 10 mg at once is causing her to be sedated throughout the day. Would give the other 7.5 mg if bad seizure but not often per mom. Mom reports weight is 75 pounds and during prior discussion she was 85 pounds. Denies any new medical issues. She does have a Que-camejo button. Reports still on oxygen 2l NC. Mom reports using puric system intermittently and reports not enough body fat and tends to leak. Of note, Mom reports still taking cares for several children on tube feedings. Reports still has baclofen pump and receiving botox treatments. Following with [facility] for [facility]ity. Reports doing well with Botox treatments. Reports still has several nurses caring for Claudine at home. OF note, mom reports terrible hospital stay at [facility], only residents on weekends, nights or holidays. Mom reported had a seizure and reports she was intubated at oxygen level of 60, instead of using ambu bag until she recovers. Seizure Types: -Little ones occurs every other day reports she will stare with tonic activity will verbalize like a laugh, head to the left with tonic-clonic activity. -Large Ones reports not anything like they were as above. Current Anti-convulsants(Prior to any changes today): Epidiolex 3.5 ml bid (stated weight of 75 pounds, and is still under 20 mg/kg/day); Lamictal 250 mg BID, Keppra 1800 BID Liquid); Valium 2-6 mg as needed. Valtoco for seizure rescue Adverse Events: Denies Prior Anti-convulsants: Tegretol, Lamictal, Keppra, phenobarbital, topiramate, Epidiolex, Valium, Fycompa (stopped secondary to kidney issues) History Recap: Claudine was adopted at age 10. 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 Febrile seizures Unknown. Prior workup: MRI- was completed but report was not available today EEG- From [facility] 1999 Ál[place], Generalized, Maximum bifrontal, 2001 Intermittent Rhythmic Slow, Generalized and regional Left Occipital EEG 2016- mild to moderate diffuse encephalopathy that is nonspecific. 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 Dysphagia Gastroesophageal reflux disease with esophagitis S/P percutaneous endoscopic gastrostomy (PEG) tube placement (HCC) Intractable symptomatic generalized epilepsy (HCC) Muscle spasticity 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HCC) Torticollis Pneumonia due to infectious organism Spasticity Febrile illness, acute Encephalopathy Hypoxia Restrictive lung disease due to kyphoscoliosis Aspiration, chronic pulmonary Tachycardia Generalized edema Sepsis (HCC) Sacral decubitus ulcer Reji-Gastaut syndrome (HCC) Pneumonia UTI (urinary tract infection) Sacral wound, initial encounter COVID-19 Pressure injury of right ischium, stage 3 (HCC) Pain around PEG tube site Multifocal pneumonia Bacteremia In (more content not included)...[facility] [id number] History of Present illness Narrative* Yany Wright CNP - 11/06/2024 2:45 PM EDT Video Visit [facility] MEDICAL OFFICE [facility], NEUROSCIENCE [address] [place] [address] [address] [facility] [phone] Via Real-time Synchronous Audiovisual [facility] 11/06/2024 Yany Wright CNP Provider Location: [facility] Patient Location Continuing Education Instructor: None Patient Location: Patient's Home Patient: Claudine Joseph Date of : 1990 (34 y.o. female) PCP: Marielle Duque MD Video Visit Consent Statement: I discussed risks, benefits and alternatives of a real-time synchronous audiovisual consultation with the patient (and any accompanying persons) including the risks that the patient s personal health details and medical records will be discussed over real-time, synchronous, interactive video/audio/telecommunication technology, the visit will not be recorded without the express consent of both the provider and the patient, and that there are some limitations compared to [id number] evaluations. We elected to proceed. Chief Complaint: Follow-up for Seizures (Pt calling in for follow up. Pt health policy nurse reports the patient is still having seizure activity. ) 34 y.o. female with CP in setting of Anoxic Brain Injury with history of Spasticity, MRSA, ARF, Kidney Stones and Seizures, follows with Dr. Richar Talbert, last follow-up in 08/14/2024 Video encounter. Mom reports recently in h trach and ventilator removed. Reprots continuing to have seizures but reports doing well. Interval History: Mom reports stoma healing nicely. Off the vent. Reports trach removed. Reports every other day little seizure. Reports was only giving Claudine 7.5 mg, instead of 15 mg of Valtoco and reports did well but now giving her 10 mg at once is causing her to be sedated throughout the day. Would give the other 7.5 mg if bad seizure but not often per mom. Mom reports weight is 75 pounds and during prior discussion she was 85 pounds. Denies any new medical issues. She does have a Que-camejo button. Reports still on oxygen 2l NC. Mom reports using puric system intermittently and reports not enough body fat and tends to leak. Of note, Mom reports still taking cares for several children on tube feedings. Reports still has baclofen pump and receiving botox treatments. Following with [facility] for sp[facility]ity. Reports doing well with Botox treatments. Reports still has several nurses caring for Claudine at home. OF note, mom reports terrible hospital stay at [facility], only residents on weekends, nights or holidays. Mom reported had a seizure and reports she was intubated at oxygen level of 60, instead of using ambu bag until she recovers. Seizure Types: -Little ones occurs every other day reports she will stare with tonic activity will verbalize like a laugh, head to the left with tonic-clonic activity. -Large Ones reports not anything like they were as above. Current Anti-convulsants(Prior to any changes today): Epidiolex 3.5 ml bid (stated weight of 75 pounds, and is still under 20 mg/kg/day); Lamictal 250 mg BID, Keppra 1800 BID Liquid); Valium 2-6 mg as needed. Valtoco for seizure rescue Adverse Events: Denies Prior Anti-convulsants: Tegretol, Lamictal, Keppra, phenobarbital, topiramate, Epidiolex, Valium, Fycompa (stopped secondary to kidney issues) History Recap: Claudine was adopted at age 10. 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 Febrile seizures Unknown. Prior workup: MRI- was completed but report was not available today EEG- From [facility] 1999 Álvaro, Generalized, Maximum bifrontal, 2001 Intermittent Rhythmic Slow, Generalized and regional Left Occipital EEG 2017- mild to moderate diffuse encephalopathy that is nonspecific. 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 Dysphagia Gastroesophageal reflux disease with esophagitis S/P percutaneous endoscopic gastrostomy (PEG) tube placement (HCC) Intractable symptomatic generalized epilepsy (HCC) Muscle spasticity 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HCC) Torticollis Pneumonia due to infectious organism Spasticity Febrile illness, acute Encephalopathy Hypoxia Restrictive lung disease due to kyphoscoliosis Aspiration, chronic pulmonary Tachycardia Generalized edema Sepsis (HCC) Sacral decubitus ulcer Reji-Gastaut syndrome (HCC) Pneumonia UTI (urinary tract infection) Sacral wound, initial encounter COVID-19 Pressure injury of right ischium, stage 3 (HCC) Pain around PEG tube site Multifocal pneumonia Bacteremia Intrathecal pump infection, initial encounter ([facility]) Acute encephalopathy Home Medications: Current Outpatient Medications Medication Sig Dispense Refill acetaminophen (TYLENOL) 325 MG tablet Take 2 (two) tablets (650 mg total) per G- tube every 6 (six) hours as needed for pain . acetic acid 0.25 % irrigation 120 mL daily Flush for bladder . baclofen 40,000 mcg/20mL (2,000 mcg/mL) Soln Simple continuous infusion ITB at daily dose of 651 mcg/day. . 40 mL 11 cholecalciferol, vitamin D3, 50 mcg (2,000 unit) cap Take 1 (one) capsule per G- tube every morning . diazePAM (VALIUM) 2 MG tablet 3 (three) tablets (6 mg total) by Per G Tube route daily as needed For seizures . 30 tablet 0 doxycycline monohydrate (ADOXA) 100 MG tablet Take 1 (one) tablet (100 mg total) by mouth daily . fluconazole (DIFLUCAN) 150 MG tablet by Per G Tube route When taking antibiotics . fluticasone propionate (FLONASE) 50 mcg/actuation nasal spray Instill 1 (one) spray into each nostril daily as needed for rhinitis . 16 g 11 gentamicin (GARAMYCIN) 0.1 % ointment Apply 1 Application topically daily Apply to affected area . guaifenesin (MUCINEX ORAL) Take by mouth 2 (two) times a day as needed Children's powder . guaiFENesin (ROBITUSSIN) 100 mg/5 mL syrup Take 10 mL (200 mg total) per G-tube 3 (three) times a day as needed for cough . levETIRAcetam (KEPPRA) 100 mg/mL solution 18 mL (1,800 mg total) by Per G Tube route 2 (two) times a day Reasons: Staff states taking 18ml twice daily. 1080 mL 11 lidocaine-prilocaine (EMLA) cream Apply topically See Admin Instructions Weekly as needed before pump refills. for 180 doses . 30 g 5 loratadine (CLARITIN) 10 mg tablet Take 1 (one) tablet (10 mg total) per G-tube every morning . medroxyPROGESTERone (DEPO-PROVERA) 150 mg/mL Syrg INJECT 1ML INTRAMUSCULARLY EVERY 10 TO 13 WEEKS montelukast (SINGULAIR) 10 mg tablet 1 (one) tablet (10 mg total) by Per G Tube route daily . multivitamin/iron/folic acid (CENTRUM ORAL) 10 mL by G-tube route every morning . omeprazole (PRILOSEC) 40 MG capsule Take 1 (one) capsule (40 mg total) per G- tube every morning . polyethylene glycol (MIRALAX) 17 gram powder 17 (seventeen) g by Per G Tube route every morning . predniSONE 5 mg/5 mL solution PRN . promethazine (PHENERGAN) 12.5 MG suppository Insert 1 (one) suppository (12.5 mg total) into the rectum every 6 (six) hours as needed for nausea . cannabidioL (Epidiolex) 100 mg/mL Soln Take 3.5 mL (350 mg total) per G-tube 2 (two) times a day . 220 mL 5 diazePAM (Valtoco) 15 mg/2 spray (7.5/0.1mL x 2) Novi Half of the dose should be delivered into each nostril. Total dose is 15 mg as needed (For seizure or seizure cluster. May repeat 15 mg dose after 4 hours if initial dose ineffective. Max 2 doses in 24 hours.) . 2 each 3 lamoTRIgine (LAMICTAL) 100 MG tablet 1 (one) tablet (100 mg total) by Per G Tube route 2 (two) times a day ALONG WITH 150 MG TABLET TO EQUAL 250 MG twice a day . 60 tablet 5 lamoTRIgine (LAMICTAL) 150 MG tablet 1 (one) tablet (150 mg total) by Per G Tube route 2 (two) times a day ALONG WITH 100 MG TABLET TO EQUAL 250 MG TWICE A DAY . 60 tablet 5 No current facility-administered medications for this visit. Physical and Neurological Examination: Eyes are clear but the evaluation was limited secondary to video artifact skewing my ability to review clearly Neurological Examination: Not alert, nonverbal, noted that Claudine's eyes were open It was difficult to determine any facial asymmetry she was lying on the couch with covers. She doeshave severe intellectual disability, she is chronically wheelchair-bound, no spontaneous movement was noted during evaluation. Additional Diagnostic data reviewed: Past medical records. Assessment and Plan: This is a 34 y.o. female with: 1. Intractable symptomatic generalized epilepsy (HCC) diazePAM (Valtoco) 15 mg/2 spray (7.5/0.1mL x2) Novi lamoTRIgine (LAMICTAL) 100 MG tablet lamoTRIgine (LAMICTAL) 150 MG tablet 2. Seizure disorder (HCC) cannabidioL (Epidiolex) 100 mg/mL Soln 3. Acute encephalopathy 4. 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HCC) 5. Muscle spasticity 6. Hypoxia 1. Intractable symptomatic generalized epilepsy - Intractable seizures despite multiple AEDs with mom reporting she has had small seizures and reports doing well. -We changed her Valtoco secondary to her weight of 75 pounds. Mom reported they determined that they were only giving her Valtoco 7.5 mg versus giving her 15 mg total. We did change the Valtoco to 10mg and now when mom gets 10 mg at once she will be sedated for the day. I did change her Valtoco order to 15 mg but mom reports they will start with 7.5 mg and see how she does before giving another 7.5 mg. Provided prescription. - Continued Epidiolex to 3.5 mL twice a day with her weight is around 75 pounds, she is still under20 mg/kg/day. Provided prescription. - Continued Lamictal at 250 mg bid for now. Provided prescriptions. - Continued Keppra 1800 mg bid suspension. - Fycompa was stopped as reports caused kidney problems and reports had dialysis on several occasions. - Continued Valium 6 mg daily as needed for seizure rescue. - No labs needed at this time. -May need to consider VNS as alternative option at future visit but mom reports she is doing well at this time. - Does not drive. - Discussed with mom to call or MyChart with questions, concerns or any worsening seizure activity. - Follow up in 6 months. 2. Spastic cerebral palsy - Static Encephalopathy. - Baclofen pump. - Botox treatments. - Mom reports she is doing well with the Botox treatments and has noted improvement in function. Reports her next Botox is next week. - [facility]. 3. Hypoxia -She did have recently severe sepsis. Mom reports she had her trach removed and off the ventilator.Reports she is still on oxygen 2 L nasal cannula but reports she is doing well. - Follows with [facility]. Thanks once again for involving our practice in [facility]. As always, it is a pleasure to participate in the care of your patients, and we remain available to any of your patients who would benefit from timely neurological evaluation. Sincerely, Yanyshilpa Wright DNP, [place], [employer] Epilepsy Clinic and Epilepsy Monitoring Unit Nurse Practitioner [facility] documented in this [id number] Instructions* Patient Instructions* Yany Wright CNP - 08/14/2024 2:48 PM EST Call [phone] and Press 1 or MyChart with questions, concerns or any seizure activity. Activity restrictions for 3-6 months from last seizure/spell event with loss of consciousness or loss of awareness: -No driving -No operating heavy machinery -No working at heights -No working with fire or hazardous materials -No bathing or swimming alone -No holding children or bathing children -Avoid anything to hurt your self or someone else Get blood work when able. Change Valtoco to 10 mg, 1 spray in one nostril as needed (for seizure or seizure cluster. Can repeat in opposite nostril in 4 hours if needed. I sent the prescription to your pharmacy. documented in this [id number] NoteVideo Visit [facility] MEDICAL OFFICE [facility], [address] [address] Via Real-time Synchronous Audiovisual [facility] 08/14/2024 Yany Wright CNP Provider Location: [facility] Patient Location Continuing Education Instructor: None Patient Location: Patient's Home Patient: Claudine Joseph Date of : 1990 (34 y.o. female) PCP: Marielle Duque MD Video Visit Consent Statement: I discussed risks, benefits and alternatives of a real-time synchronous audiovisual consultation with the patient (and any accompanying persons) including the risks that the patient's personal health details and medical records will be discussed over real-time, synchronous, interactive video/audio/telecommunication technology, the visit will not be recorded without the express consent of both the provider and the patient, and that there are some limitations compared to nqth-[id number]-fluv evaluations. We elected to proceed. Chief Complaint: Follow-up for Seizures (Pt calling in for follow up with health policy nurse. Sustainable Products Marketing Manager reports frequent seizures since ROSIE. ) 34 y.o. female with CP in setting of Anoxic Brain Injury with history of Spasticity, MRSA, ARF, Kidney Stones and Seizures, follows with Dr. Richar Talbert, last follow-up in 12/2023. Video encounter. Mom reports recently in hospital and now with trach. Reprots having frequent seizures. Interval History: Mom reports Claudine was in hospital and had trach placed. Reports was having anxiety with trach has improved. Reports giving Valium as needed and reports giving 2-3 times a week. Reports had seizure and gave Valtoco today and giving weekly for breakthrough seizures. Reviewed hospital discharge summary 05/16/2024: Found to have severe sepsis transferred to MICU 04/22/2024 due worsening hypoxemic respiratory failure, intubated 04/25/2024 s/p bronchoscopy 04/25/2024 with thick mucopurulent secretions, [facility] signed off 04/29/24. S/p tracheostomy 05/04/2024 with ENT. [facility] consulted to assume care of MICU. Pt discharged with home vent. She was seen by Dr. Fields reconsult on 05/11/[address] Fields reported: she presented to the ED on 04/21 for altered mental status and has had a complicated hospital stay including need for intubation followed by tracheostomy, sepsis secondary to pneumonia and UTI and DAE requiring temporary hemodyalisis. Neurology was re-consulted today after a seizure this morning. Claudine has baseline daily seizures and this was a typical event for her. She has medically refractory epilepsy and is currently on home cannabidiol and lamotrigine and is on a reduced dose of levetiracetam due to DAE (now resolved). In discussion with Claudine's mother, her primary goal is to make sure Claudine is comfortable and to get her home as soon as possible. She has no concerns about her seizures and has rescue medication at home that they use as needed roughly once per week. PLAN: Resume home medications for seizure control now and on discharge: - Cannabidiol 350 mg per G tube BID - Lamotrigine 250 mg BID - Increase Levetiracetam back to home dose of 1800 mg per G tube BID - Valtoco rescue medication for seizure lasting >3 minutes. They use this once per week on average.While hospitalized Continuous EEG without seizures. Mom reports following with ENT to try to remove trach and reports will follow up in 3 weeks and thinks Claudine will be better. Not able to mobilize secondary to trach and decrease in her functional status. Reports having a lot of secretions. Mom reports weight is around 85 lbs and reports was 75 lbs. Denies any new medical issues. No PICC line. Reports still has Que-camejo button has some leaks but mom reports dealing with it and has the wound from the recent Que-camejo button. Reports on doxycycline as preventative. Mom reports using puric system instead of sage catheter but will cause skin breakdown and using Vaseline with improvement. Of note, Mom reports still taking care of several children on tube feedings. Reports baclofen pump and receiving botox and reports doing wonderfully and now able to open hands and do nails and move arms. Following with [facility] for spasticity. Reports going to wound clinic every 2 weeks for buttock wound. Reports still has several nurses caring for Claudine at home. Mom reports terrible hospital stay at [facility], only residents on weekends, nights or holidays. Mom reports had a seizure and reports she was intubated at oxygen level of 60, instead of using ambu bag until she recovers. Seizure Types: -Little ones occurs every other day reports she will stare with tonic activity will verbalize like a laugh, head to the left with tonic-clonic activity. -Large Ones reports not anything like they were as above. Current Anti-convulsants(Prior to (more content not included)...[facility] [id number] History of Present illness Narrative* Yany Wright CNP - 08/14/2024 2:20 PM EST Video Visit [facility] MEDICAL OFFICE [facility], NEUROSCIENCE [address] [facility] [id number] Via Real-time Synchronous Audiovisual [facility] 08/14/2024 Yany Wright CNP Provider Location: [facility] Patient Location Continuing Education Instructor: None Patient Location: Patient's Home Patient: Claudine Joseph Date of : 1990 (34 y.o. female) PCP: Marielle Duque MD Video Visit Consent Statement: I discussed risks, benefits and alternatives of a real-time synchronous audiovisual consultation with the patient (and any accompanying persons) including the risks that the patient s personal health details and medical records will be discussed over real-time, synchronous, interactive video/audio/telecommunication technology, the visit will not be recorded without the express consent of both the provider and the patient, and that there are some limitations compared to [id number] evaluations. We elected to proceed. Chief Complaint: Follow-up for Seizures (Pt calling in for follow up with health policy nurse. Sustainable Products Marketing Manager reports frequent seizures since ROSIE. ) 34 y.o. female with CP in setting of Anoxic Brain Injury with history of Spasticity, MRSA, ARF, Kidney Stones and Seizures, follows with Dr. Richar Talbert, last follow-up in 12/2023. Video encounter. Mom reports recently in hospital and now with trach. Reprots having frequent seizures. Interval History: Mom reports Claudine was in hospital and had trach placed. Reports was having anxiety with trach hasimproved. Reports giving Valium as needed and reports giving 2-3 times a week. Reports had seizure and gave Valtoco today and giving weekly for breakthrough seizures. Reviewed hospital discharge summary 05/16/2024: Found to have severe sepsis transferred to MICU 04/22/2024 due worsening hypoxemic respiratory failure, intubated 04/25/2024 s/p bronchoscopy 04/25/2024 with thick mucopurulent secretions, [facility] signed off 04/29/24. S/p tracheostomy 05/04/2024 with ENT. [facility] consulted to assume care of MICU. Pt discharged with home vent. She was seen by Dr. Fields reconsult on 05/11/[address] Fields reported: she presented to the ED on 04/21 for altered mental status and has had a complicated hospital stay including need for intubation followed by tracheostomy, sepsis secondary to pneumonia and UTI and DAE requiring temporary hemodyalisis. Neurology was re-consulted today after a seizure this morning. Claudine has baseline daily seizures and this was a typical event for her. She has medically refractory epilepsy and is currently on home cannabidiol and lamotrigine and is on a reduced dose of levetiracetam due to DAE (now resolved). In discussion with Claudine's mother, her primary goal is to make sure Claudine is comfortable and to get her home as soon as possible. She has no concerns about her seizures and has rescue medication at homethat they use as needed roughly once per week. PLAN: Resume home medications for seizure control now and on discharge: - Cannabidiol 350 mg per G tube BID - Lamotrigine 250 mg BID - Increase Levetiracetam back to home dose of 1800 mg per G tube BID - Valtoco rescue medication for seizure lasting >3 minutes. They use this once per week on average.While hospitalized Continuous EEG without seizures. Mom reports following with ENT to try to remove trach and reports will follow up in 3 weeks and thinks Claudine will be better. Not able to mobilize secondary to trach and decrease in her functionalstatus. Reports having a lot of secretions. Mom reports weight is around 85 lbs and reports was 75 lbs. Denies any new medical issues. No PICC line. Reports still has Que-camejo button has some leaks but mom reports dealing with it and has the wound from the recent Que-camejo button. Reports on doxycycline as preventative. Mom reports using puric system instead of sage catheter but will cause skin breakdown and using Vaseline with improvement. Of note, Mom reports still taking care of several children on tube feedings. Reports baclofen pump and receiving botox and reports doing wonderfully and now able to open hands and do nails and move arms. Following with [facility] for spasticity. Reports going to wound clinic every 2 weeks for buttock wound. Reports still has several nurses caring for Claudine at home. Mom reports terrible hospital stay at [facility], only residents on weekends, nights or holidays. Mom reports had a seizure and reports she was intubated at oxygen level of 60, instead of using ambu baguntil she recovers. Seizure Types: -Little ones occurs every other day reports she will stare with tonic activity will verbalize like a laugh, head to the left with tonic-clonic activity. -Large Ones reports not anything like they were as above. Current Anti-convulsants(Prior to any changes today): Epidiolex 3.5 ml bid (with her weight around 85 pounds she is now under 20 mg/kg/day); Lamictal 250 mg BID, Keppra 1800 BID Liquid); Valium 2-6 mg as needed. Valtoco for seizure rescue Adverse Events: Denies Prior Anti-convulsants: Tegretol, Lamictal, Keppra, phenobarbital, topiramate, Epidiolex, Valium, Fycompa (stopped secondary to kidney issues) History Recap: Claudine was adopted at age 10. 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 Febrile seizures Unknown. Prior workup: MRI- was completed but report was not available today EEG- From [facility] 1999 Álvaro, Generalized, Maximum bifrontal, 2001 Intermittent Rhythmic Slow, Generalized and regional Left Occipital EEG 2016- mild to moderate diffuse encephalopathy that is nonspecific. 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 Dysphagia Gastroesophageal reflux disease with esophagitis S/P percutaneous endoscopic gastrostomy (PEG) tube placement (HCC) Intractable symptomatic generalized epilepsy (HCC) Muscle spasticity 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HCC) Torticollis Pneumonia due to infectious organism Spasticity Febrile illness, acute Encephalopathy Hypoxia Restrictive lung disease due to kyphoscoliosis Aspiration, chronic pulmonary Tachycardia Generalized edema Sepsis (HCC) Sacral decubitus ulcer Reji-Gastaut syndrome (HCC) Pneumonia UTI (urinary tract infection) Sacral wound, initial encounter COVID-19 Pressure injury of right ischium, stage 3 (HCC) Pain around PEG tube site Multifocal pneumonia Bacteremia Intrathecal pump infection, initial encounter (HCC) Acute encephalopathy Home Medications: Current Outpatient Medications Medication Sig Dispense Refill acetaminophen (TYLENOL) 325 MG tablet Take 2 (two) tablets (650 mg total) per G- tube every 6 (six) hours as needed for pain . acetic acid 0.25 % irrigation 120 mL daily Flush for bladder . baclofen 40,000 mcg/20mL (2,000 mcg/mL) Soln Simple continuous infusion ITB at daily dose of 651 mcg/day. . 40 mL 11 cannabidioL (Epidiolex) 100 mg/mL Soln Take 3.5 mL (350 mg total) per G-tube 2 (two) times a day . 220 mL 3 cholecalciferol, vitamin D3, 50 mcg (2,000 unit) cap Take 1 (one) capsule per G- tube every morning . diazePAM (VALIUM) 2 MG tablet 3 (three) tablets (6 mg total) by Per G Tube route daily as needed For seizures . 30 tablet 0 doxycycline monohydrate (ADOXA) 100 MG tablet Take 1 (one) tablet (100 mg total) by mouth daily . fluconazole (DIFLUCAN) 150 MG tablet by Per G Tube route When taking antibiotics . fluticasone propionate (FLONASE) 50 mcg/actuation nasal spray Instill 1 (one) spray into each nostril daily as needed for rhinitis . 16 g 11 gentamicin (GARAMYCIN) 0.1 % ointment Apply 1 Application topically daily Apply to affected area . guaifenesin (MUCINEX ORAL) Take by mouth 2 (two) times a day as needed Children's powder . guaiFENesin (ROBITUSSIN) 100 mg/5 mL syrup Take 10 mL (200 mg total) per G-tube 3 (three) times a day as needed for cough . lamoTRIgine (LAMICTAL) 100 MG tablet 1 (one) tablet (100 mg total) by Per G Tube route 2 (two) times a day ALONG WITH 150 MG TABLET TO EQUAL 250 MG twice a day . 60 tablet 5 lamoTRIgine (LAMICTAL) 150 MG tablet 1 (one) tablet (150 mg total) by Per G Tube route 2 (two) times a day ALONG WITH 100 MG TABLET TO EQUAL 250 MG TWICE A DAY . 60 tablet 5 levETIRAcetam (KEPPRA) 100 mg/mL solution 18 mL (1,800 mg total) by Per G Tube route 2 (two) times a day Reasons: Staff states taking 18ml twice daily. 1080 mL 11 lidocaine-prilocaine (EMLA) cream Apply topically See Admin Instructions Weekly as needed before pump refills. for 180 doses . 30 g 5 loratadine (CLARITIN) 10 mg tablet Take 1 (one) tablet (10 mg total) per G-tube every morning . medroxyPROGESTERone (DEPO-PROVERA) 150 mg/mL Syrg INJECT 1ML INTRAMUSCULARLY EVERY 10 TO 13 WEEKS montelukast (SINGULAIR) 10 mg tablet 1 (one) tablet (10 mg total) by Per G Tube route daily . multivitamin/iron/folic acid (CENTRUM ORAL) 10 mL by G-tube route every morning . omeprazole (PRILOSEC) 40 MG capsule Take 1 (one) capsule (40 mg total) per G- tube every morning . polyethylene glycol (MIRALAX) 17 gram powder 17 (seventeen) g by Per G Tube route every morning . predniSONE 5 mg/5 mL solution PRN . promethazine (PHENERGAN) 12.5 MG suppository Insert 1 (one) suppository (12.5 mg total) into the rectum every 6 (six) hours as needed for nausea . diazePAM 10 mg/spray (0.1 mL) Novi Instill 1 spray into each nostril daily as needed Give 10 mg, 1 spray in one nostril as needed for seizure or seizure cluster. Can repeat in 4 hours if needed in opposite nostril. . 4 each 2 No current facility-administered medications for this visit. Physical and Neurological Examination: Exam limited secondary to video encounter, she was sleeping, facing away form video and only able to visualize side of face Additional Diagnostic data reviewed: Past medical records. Assessment and Plan: This is a 34 y.o. female with: 1. Intractable symptomatic generalized epilepsy (HCC) Lamotrigine Level Levetiracetam Level CBC and Differential Comprehensive Metabolic Panel diazePAM 10 mg/spray (0.1 mL) Novi 2. 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HCC) 3. Acute on chronic respiratory failure with hypoxia and hypercapnia (HCC) 1. Intractable symptomatic generalized epilepsy - Intractable seizures despite multiple AEDs with mom reporting recently hospital stay with recordsnoting severe sepsis and seizures requiring intubation s/p trach with ventilation. - Reports still having frequent seizures and using Valtoco weekly. - Continued Epidiolex to 3.5 mL twice a day with her weight is around 85, around 20 mg/kg/day. - Continued Lamictal at 250 mg bid for now. - Continued Keppra 1800 mg bid suspension. - Fycompa was stopped as reports caused kidney problems and reports had dialysis on several occasions. - Continued Valium 6 mg daily as needed for seizure rescue. - Mom reports using Valtoco weekly for breakthrough seizures. Reviewed dose decreased dose given weight to 10 mg. Provided prescription. - OAARs reviewed and no concerns noted. - Ordered labs: CBC, CMP, Lamictal, Keppra - Will need to consider VNS as alternative option at future visit. - Does not drive. - Discussed with mom to call or MyChart with questions, concerns or any worsening seizure activity. - Follow up in 3 months. 2. Spastic cerebral palsy - Static Encephalopathy. - Baclofen pump. - Botox treatments. - Mom reports improvement in function. - [facility] in [facility]. 3. Hypoxia - She was started on O2 and bipap for acute hypercapnia but now trached and vented secondary to recent hospital visit for severe sepsis. - Follows with [facility]. Thanks once again for involving our practice in [facility]'s care. As always, it is a pleasure to participate in the care of your patients, and we remain available to any of your patients who would benefit from timely neurological evaluation. Sincerely, Yany Wright, CADE, DIRECTOR OF GLOBAL SALES, [employer] Epilepsy Clinic and Epilepsy Monitoring Unit Nurse Practitioner [facility] documented in this [id number] Telephone encounter Note* Telephone Encounter - Carola Paul MA - 08/01/2024 2:45 PM EST Pt switched pharmacies, last appt 03/2024 [id number] Miscellaneous Notes* Telephone Encounter - Carola Paul MA - 08/01/2024 2:45 PM EST Pt switched pharmacies, last appt 03/2024 documented in this [id number] [facility] 05-11-2024 [facility]24 Note [facility] 05-08-2024 [facility]24 Note [facility] 05-05-2024 NoteTrach site looks good. OK to ct sutures holding trach on 05/11 and assume routine trach care. ENT will sign off. Reconsult if needed AUTHENTICATED BY CHRISTINE OSCAR, ON 05/05/2024 15:14:54[facility]-06-2024 [facility]-2024 Note [facility] 05-04-2024 [facility]04-20[facility]04-20[facility]20[facility]-20[facility]-2024 Note [facility] 05-01-2024 [facility]02-20[facility]02-20[facility]20[facility]-20[facility]-2024 [facility]-31-20[facility] 04-29-2024 [facility]-20[facility]-30-2024 [facility]-30-2024 [facility]-2024 [facility]30[facility] 04-27-2024 [facility]-29-20[facility]-29-2024 [facility]-29-2024 [facility]-28-2024 [facility]-28-2024 [facility]28[facility] 04-26-2024 [facility]27-20[facility]27-2024 [facility]27-20[facility]-27-2024 [facility]-27-2024 Note [facility]27-20[facility] 04-25-2024 [facility]-27-2024 [facility]-26-2024 [facility]-25-2024 [facility]24-2024 [facility]-2024 Telephone encounter Note* Telephone Encounter - Elroy Lopez RN - 04/05/2024 11:31 AM EDT Spoke with Cailin Saldivar RN with [facility]. Was informed she recently filled patient's pump and patient's mother, Peg, is asking for a refill of EMLA cream for patient. Prescription pended for review. [id number] Miscellaneous Notes* Telephone Encounter - Elroy Lopez RN - 04/05/2024 11:31 AM EDT Spoke with Cailin Saldivar RN with [facility]. Was informed she recently filled patient's pump and patient's mother, Peg, is asking for a refill of EMLA cream for patient. Prescription pended for review. documented in this [id number] Instructions* Patient Instructions* Yany Wright CNP - 04/04/2024 2:15 PM EDT Call [phone] and Press 1 or MyChart with questions, concerns or any seizure activity. Activity restrictions for 3-6 months from last seizure/spell event with loss of consciousness or loss of awareness: -No driving -No operating heavy machinery -No working at heights -No working with fire or hazardous materials -No bathing or swimming alone -No holding children or bathing children -Avoid anything to hurt your self or someone else I sent Epidiolex prescription to your pharmacy. I sent Keppra prescription to your pharmacy. documented in this [id number] History of Present illness Narrative* Yany Wright CNP - 04/04/2024 2:03 PM EDT NEUROLOGY Office Visit [facility] [address] [place] [address], [address] [place] [address] (office) / [phone] (fax) Patient Name: Claudine Joseph : 1990 MR #: [id number] Date of Neurology Follow-up: 04/10/24 Name of Provider: Yany Wright CNP, [employer], DIRECTOR OF GLOBAL SALES Other Physicians: Marielle Duque MD (Primary Care Physician) Chief Complaint: Follow-up for Seizures (Pt here for follow up. Sustainable Products Marketing Manager reports smaller seizure events since ROSIE. ) 33 y.o. female with CP in setting of Anoxic Brain Injury with history of Spasticity, MRSA, ARF, Kidney Stones and Seizures, follows with Dr. Richar Talbert, last follow-up in 12/2023. Here with mom and caregiver with reports seizures are still occurring every morning little seizures lasting seconds r eports they need refills. Interval History: Mom reports Claudine has stopped crying. Reports seizures better little seizures in morning lasting several seconds Mom reports no seizures requiring seizure rescue medications. Prior visit mom had reported when heart rate goes up and oxygen drops will give Valtoco, We did weigh her on wheelchair scale today. Wheelchair weight 128.4 lbs Claudine's weight 85.9 lbs. Denies any new medical issues. Reports has PICC line for coccyx wound needing antibiotic. Reports wound is almost closed. Reports still has Que-camejo. Reports using probiotic for BM. Denies any other new medical issues. Mom reports still taking care of several children on tube feedings. Reports baclofen pump and receiving botox. Following with [facility] for spasticity. Reports still has several nurses caring for Claudine at home. Reports still struggling with wound on buttocks. Seizure Types: -Little ones occurs every other day reports she will stare with tonic activity will verbalize like a laugh, head to the left with tonic-clonic activity. -Large Ones reports not anything like they were as above. Current Anti-convulsants(Prior to any changes today): Epidiolex 3.5 ml bid (with her new weight of 85.9 pounds she is now under 20 mg/kg/day); Fycompa 1 mg daily; Lamictal 250 mg BID, Keppra 1800 BIDLiquid); Valium 2-6 mg as needed. Valtoco for seizure rescue Adverse Events: Denies Prior Anti-convulsants: Tegretol, Lamictal, Keppra, phenobarbital, topiramate, Epidiolex, Valium History Recap: Claudine was adopted at age 10. 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 Febrile seizures Unknown. Prior workup: MRI- was completed but report was not available today EEG- From [facility] 1999 Álvaro, Generalized, Maximum bifrontal, 2001 Intermittent Rhythmic Slow, Generalized and regional Left Occipital EEG 2016- mild to moderate diffuse encephalopathy that is nonspecific. 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 Dysphagia Gastroesophageal reflux disease with esophagitis S/P percutaneous endoscopic gastrostomy (PEG) tube placement ([facility]) Intractable symptomatic generalized epilepsy (HCC) Muscle spasticity 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HCC) Torticollis Pneumonia due to infectious organism Spasticity Febrile illness, acute Encephalopathy Hypoxia Restrictive lung disease due to kyphoscoliosis Aspiration, chronic pulmonary Tachycardia Generalized edema Sepsis ([facility]) Sacral decubitus ulcer [place]-Gastaut syndrome ([facility]) Pneumonia UTI (urinary tract infection) Sacral wound, initial encounter COVID-19 Pressure injury of right ischium, stage 3 ([facility]) Pain around PEG tube site Multifocal pneumonia Bacteremia Intrathecal pump infection, initial encounter ([facility]) Home Medications: Current Outpatient Medications Medication Sig Dispense Refill acetaminophen (TYLENOL) 325 MG tablet 2 (two) tablets (650 mg total) by G-tube route every 6 (six) hours as needed for pain . acetic acid 0.25 % irrigation 120 mL daily Flush for bladder . baclofen 40,000 mcg/20mL (2,000 mcg/mL) Soln Simple continuous infusion ITB at daily dose of 651 mcg/day. . 40 mL 11 cholecalciferol, vitamin D3, 50 mcg (2,000 unit) cap 1 (one) capsule by G-tube route every morning . diazePAM (VALIUM) 2 MG tablet 3 (three) tablets (6 mg total) by Per G Tube route daily as needed For seizures . 30 tablet 0 diazePAM (Valtoco) 15 mg/2 spray (7.5/0.1mL x 2) Novi 7.5 mg by Each Nare route as needed (for seizure or seizure cluster. Can repeat in 4 hours if needed.) . 8 each 2 doxycycline monohydrate (ADOXA) 100 MG tablet Take 1 (one) tablet (100 mg total) by mouth daily . fluconazole (DIFLUCAN) 150 MG tablet by Per G Tube route When taking antibiotics . fluticasone propionate (FLONASE) 50 mcg/actuation nasal spray Instill 1 (one) spray into each nostril daily as needed for rhinitis . 16 g 11 guaifenesin (MUCINEX ORAL) Take by mouth 2 (two) times a day as needed Children's powder . guaiFENesin (ROBITUSSIN) 100 mg/5 mL syrup 10 mL (200 mg total) by G-tube route 3 (three) times a day as needed for cough . ipratropium (ATROVENT) 0.02 % nebulizer solution inhale contents of 1 vial in nebulizer twice a dayIF CONGESTED OR WHEEZING OR LABORED CAN TAKE UP TO FOUR TIMES DAILY . 300 mL 11 lamoTRIgine (LAMICTAL) 100 MG tablet 1 (one) tablet (100 mg total) by Per G Tube route 2 (two) times a day ALONG WITH 150 MG TABLET TO EQUAL 250 MG twice a day . 60 tablet 1 lamoTRIgine (LAMICTAL) 150 MG tablet 1 (one) tablet (150 mg total) by Per G Tube route 2 (two) times a day ALONG WITH 100 MG TABLET TO EQUAL 250 MG TWICE A DAY . 60 tablet 3 loratadine (CLARITIN) 10 mg tablet 1 (one) tablet (10 mg total) by G-tube route every morning . medroxyPROGESTERone (DEPO-PROVERA) 150 mg/mL Syrg INJECT 1ML INTRAMUSCULARLY EVERY 10 TO 13 WEEKS montelukast (SINGULAIR) 10 mg tablet 1 (one) tablet (10 mg total) by Per G Tube route daily . multivitamin/iron/folic acid (CENTRUM ORAL) 10 mL by G-tube route every morning . omeprazole (PRILOSEC) 40 MG capsule 1 (one) capsule (40 mg total) by G-tube route every morning . pedi multivit 200-B. coagulans (Just 4 Kidz Multivit-Probiotic) 1.25 mg Chew Chew and Swallow daily. perampaneL (Fycompa) oral suspension Take 2 mL (1 mg total) by mouth daily (Days supply per fill: 30) . 60 mL 5 polyethylene glycol (MIRALAX) 17 gram powder 17 (seventeen) g by Per G Tube route every morning . predniSONE 5 mg/5 mL solution PRN . promethazine (PHENERGAN) 12.5 MG suppository Insert 1 (one) suppository (12.5 mg total) into the rectum every 6 (six) hours as needed for nausea . cannabidioL (Epidiolex) 100 mg/mL Soln 3.5 mL (350 mg total) by G-tube route 2 (two) times a day . 220 mL 3 levETIRAcetam (KEPPRA) 100 mg/mL solution 18 mL (1,800 mg total) by Per G Tube route 2 (two) times a day Reasons: Staff states taking 18ml twice daily. 1080 mL 11 lidocaine-prilocaine (EMLA) cream Apply topically See Admin Instructions Weekly as needed before pump refills. for 180 doses . 30 g 5 No current facility-administered medications for this visit. Physical Examination: Vitals: 04/04/24 1421 BP: 100/68 Pulse: (!) 103 Weight: 39 kg (85 lb 14.4 oz) Eyes are clear. Oral mucosa is moist. Extremities are without deformity. No notable skin rash. Neurological Examination: Not alert, nonverbal, noted that she was moaning. Opened eyes during transfer from wheelchair to bed. Cranial Nerves II-XII limited secondary to profound MRDD, EOM moves spontaneous dysconjuate gaze, no notable facial weakness, with horizontal nystagmus BUE and BLE contractures with increased tone, noted spontaneous movement of upper extremities, no movement of BLEs Wheelchair bound Additional Diagnostic data reviewed: Past medical records. Assessment and Plan: This is a 33 y.o. female with: 1. Intractable symptomatic generalized epilepsy (HCC) levETIRAcetam (KEPPRA) 100 mg/mL solution 2. Seizure disorder (HCC) cannabidioL (Epidiolex) 100 mg/mL Soln 3. 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HCC) 4. Encephalopathy 5. Hypoxia 1. Intractable symptomatic generalized epilepsy - Intractable seizures despite multiple AEDs with mom reporting daily seizures but has noted less intense, lasting for seconds and reports she has not required any seizure rescue medication - Continued Epidiolex to 3.5 mL twice a day with her new weight of 85.9, she is now under 20 mg/kg/day. Provided prescription. - Continue Lamictal at 250 mg bid for now. - Continued Keppra 1800 mg bid suspension. - Continued Fycompa 1 mg daily suspension. - Continued Valium 6 mg daily as needed for seizure rescue. - Mom reports she has not had to use Valtoco since starting Fycompa. She was using Valtoco 2-3 times a week. - OAARs reviewed and no concerns noted. - Labs to consider at next office visit: CBC, CMP, Lamictal, Keppra and Onfi level if taking Onfi. - Discussed VNS as alternative option in the past and mom deferred. - Does not drive. - Discussed with mom to call or MyChart with questions, concerns or any worsening seizure activity. - Follow up in 4 months with me and then with Dr. Talbert in November 2024. 2. Spastic cerebral palsy - Static Encephalopathy. - Baclofen pump. - Botox treatments. - [facility]. 3. Hypoxia - She was started on O2 and bipap for acute hypercapnia. - Follows with [facility]. Thanks once again for involving our practice in [facility]'s care. As always, it is a pleasure to participate in the care of your patients, and we remain available to any of your patients who would benefit from timely neurological evaluation. Sincerely, Yany Wirght, CADE, DIRECTOR OF GLOBAL SALES, [employer] [facility] and Epilepsy Monitoring Unit Nurse Practitioner [facility] documented in this [id number] Note* Addendum Note - Ruma Godwin CNP - 03/27/2024 10:53 AM EDTAddended by: RUMA GODWIN on: 03/27/2024 10:53 AM Modules accepted: Orders [id number] Miscellaneous Notes* Addendum Note - Ruma Godwin CNP - 03/27/2024 10:53 AM EDTAddended by: RUMA GODWIN on: 03/27/2024 10:53 AM Modules accepted: Orders * Addendum Note - Elroy Lopez RN - 03/27/2024 10:03 AM EDTAddended by: ELROY LOPEZ on: 03/27/2024 10:03 AM Modules accepted: Orders * Telephone Encounter - Elroy Lopez RN - 03/27/2024 9:51 AM EDT Alarm: 04/07/24 Call made to [facility] at [phone]. Spoke to rep. Patient is scheduled for a pump refill on March 29, 2024. New order is needed. Prescription pended. * Telephone Encounter - Narcisa Muller - 03/27/2024 8:56 AM EDT Patients mother called infusion in regards to her daughters appt with the Clinic on Saturday 03/31. Shehas a couple questions in regards to that appt (if it can be done at home or if they have to come in). She asked that we reach out to the clinic and see if they could give her a call. Thanks :) documented in this [id number] Note* Addendum Note - Elroy Lopez RN - 03/27/2024 10:03 AM EDTAddended by: ELROY LOPEZ on: 03/27/2024 10:03 AM Modules accepted: Orders [id number] Note* Addendum Note - Elroy Lopez RN - 03/27/2024 10:03 AM EDTAddended by: ELROY LOPEZ on: 03/27/2024 10:03 AM Modules accepted: Orders [id number] Miscellaneous Notes* Addendum Note - Elroy Lopez RN - 03/27/2024 10:03 AM EDTAddended by: ELROY LOPEZ on: 03/27/2024 10:03 AM Modules accepted: Orders * Telephone Encounter - Elroy Lopez RN - 03/27/2024 9:51 AM EDT Alarm: 04/07/24 Call made to [facility] at [phone]. Spoke to rep. Patient is scheduled for a pump refill on March 29, 2024. New order is needed. Prescription pended. * Telephone Encounter - Narcisa Muller - 03/27/2024 8:56 AM EDT Patients mother called infusion in regards to her daughters appt with the Clinic on Saturday 03/31. Shehas a couple questions in regards to that appt (if it can be done at home or if they have to come in). She asked that we reach out to the clinic and see if they could give her a call. Thanks :) documented in this [id number] Telephone encounter Note* Telephone Encounter - Elroy Lopez RN - 03/27/2024 9:51 AM EDT Alarm: 04/07/24 Call made to [facility] at [phone]. Spoke to rep. Patient is scheduled for a pump refill on March 29, 2024. New order is needed. Prescription pended. [id number] NoteR[facility]Pro[facility]07-29-[facility] History of Present illness Narrative* Ruma Godwin CNP - 03/27/2024 9:34 AM EDT Called and spoke with Peg, states wants to continue with [facility] filling her pump. Claudine is doing well and does not need a dose adjustment. We will cancel contact [facility] to fill her pump and cancel her appointment on 03/31 with me. Peg understands we will need to see Claudine in clinic annually, due 11/2024. Peg verbalized understanding and was appreciative of the call. documented in this [id number] History of Present illness Narrative* Ruma Godwin CNP - 03/27/2024 9:34 AM EDT Called and spoke with Peg, states wants to continue with [facility] filling her pump. Claudine is doing well and does not need a dose adjustment. We will cancel contact [facility] to fill her pump and cancel her appointment on 03/31 with me. Peg understands we will need to see Claudine in clinic annually, due 11/2024. Peg verbalized understanding and was appreciative of the call. documented in this [id number] Telephone encounter Note* Telephone Encounter - Narcisa Muller - 03/27/2024 8:56 AM EDT Patients mother called infusion in regards to her daughters appt with the Clinic on Saturday 03/31. Shehas a couple questions in regards to that appt (if it can be done at home or if they have to come in). She asked that we reach out to the clinic and see if they could give her a call. Thanks :) [id number] History of Present illness Narrative* Stephy Cisse MD - 03/22/2024 12:50 PM EDT Assessment/Plan: Diagnoses and all orders for this visit: Restrictive lung disease due to kyphoscoliosis - Home Oxygen Concentrator with Portability Nasal cannula; 4 LPM; Continuous and/or During Exertion; [employer] - Miscellaneous DME Equipment Chronic pulmonary aspiration, sequela - Home Oxygen Concentrator with Portability Nasal cannula; 4 LPM; Continuous and/or During Exertion; [employer] - Miscellaneous DME Equipment 87% on RA at rest. 88% on 4 l poc. 94% on 4 L POC Ordered O2 set at 4 L. Order will be sent to [facility] [place] for O2 and supplies. I also ordered a POC. Peg will call if there are issues. History Claudine Joseph is a 33 y.o. female with CP who has aspiration (frequent seizures, CP), chronic respiratory failure, and restrictive lung disease. She is not able to communicate. Her motherPeg speaks for her. As you know, Claudine has CP who has had chronic daily seizures. Claudine is here today with her mother Peg. Peg is here bc she wants to switch the O2 supplier from [facility] to [facility] [place]. She reports difficulty calling into [facility] about Claudine's O2. She suspects the home concentrator is not working. There was also an issue with the portable O2. Other than the O2, there have been no other issues. No new flare ups or admissions. Claudine does have some on/ off secretions aspiration from the seizures but nothing is worse or new. No fever. No purulence. No change in secretions. No change in bowel habits. No change in behavior Current Outpatient Medications: acetaminophen (TYLENOL) 325 MG tablet, 2 (two) tablets (650 mg total) by G-tube route every 6 (six)hours as needed for pain ., Disp: , Rfl: acetic acid 0.25 % irrigation, 120 mL daily Flush for bladder ., Disp: , Rfl: baclofen 40,000 mcg/20mL (2,000 mcg/mL) Soln, Simple continuous infusion ITB at daily dose of 651 mcg/day. ., Disp: 40 mL, Rfl: 6 cannabidioL (Epidiolex) 100 mg/mL Soln, 3.5 mL (350 mg total) by G-tube route 2 (two) times a day ., Disp: 220 mL, Rfl: 3 cholecalciferol, vitamin D3, 50 mcg (2,000 unit) cap, 1 (one) capsule by G-tube route every morning., Disp: , Rfl: diazePAM (VALIUM) 2 MG tablet, 3 (three) tablets (6 mg total) by Per G Tube route daily as needed For seizures ., Disp: 30 tablet, Rfl: 0 diazePAM (Valtoco) 15 mg/2 spray (7.5/0.1mL x 2) Novi, 7.5 mg by Each Nare route as needed (for seizure or seizure cluster. Can repeat in 4 hours if needed.) ., Disp: 8 each, Rfl: 2 doxycycline monohydrate (ADOXA) 100 MG tablet, Take 1 (one) tablet (100 mg total) by mouth daily .,Disp: , Rfl: fluconazole (DIFLUCAN) 150 MG tablet, by Per G Tube route When taking antibiotics ., Disp: , Rfl: fluticasone propionate (FLONASE) 50 mcg/actuation nasal spray, Instill 1 (one) spray into each nostril daily as needed for rhinitis ., Disp: 16 g, Rfl: 11 guaifenesin (MUCINEX ORAL), Take by mouth 2 (two) times a day as needed Children's powder ., Disp: , Rfl: guaiFENesin (ROBITUSSIN) 100 mg/5 mL syrup, 10 mL (200 mg total) by G-tube route 3 (three) times a day as needed for cough ., Disp: , Rfl: ipratropium (ATROVENT) 0.02 % nebulizer solution, inhale contents of 1 vial in nebulizer twice a day IF CONGESTED OR WHEEZING OR LABORED CAN TAKE UP TO FOUR TIMES DAILY ., Disp: 300 mL, Rfl: 11 lamoTRIgine (LAMICTAL) 100 MG tablet, 1 (one) tablet (100 mg total) by Per G Tube route 2 (two) times a day ALONG WITH 150 MG TABLET TO EQUAL 250 MG twice a day ., Disp: 60 tablet, Rfl: 1 lamoTRIgine (LAMICTAL) 150 MG tablet, 1 (one) tablet (150 mg total) by Per G Tube route 2 (two) times a day ALONG WITH 100 MG TABLET TO EQUAL 250 MG TWICE A DAY ., Disp: 60 tablet, Rfl: 3 levETIRAcetam (KEPPRA) 100 mg/mL solution, 15 mL (1,500 mg total) by Per G Tube route 2 (two) timesa day . (Patient taking differently: 15 mL (1,500 mg total) by Per G Tube route 2 (two) times a dayReasons: Staff states taking 18ml twice daily.), Disp: 930 mL, Rfl: 6 loratadine (CLARITIN) 10 mg tablet, 1 (one) tablet (10 mg total) by G-tube route every morning ., Disp: , Rfl: medroxyPROGESTERone (DEPO-PROVERA) 150 mg/mL Syrg, INJECT 1ML INTRAMUSCULARLY EVERY 10 TO 13 WEEKS,Disp: , Rfl: montelukast (SINGULAIR) 10 mg tablet, 1 (one) tablet (10 mg total) by Per G Tube route daily ., Disp: , Rfl: multivitamin/iron/folic acid (CENTRUM ORAL), 10 mL by G-tube route every morning ., Disp: , Rfl: omeprazole (PRILOSEC) 40 MG capsule, 1 (one) capsule (40 mg total) by G-tube route every morning .,Disp: , Rfl: pedi multivit 200-B. coagulans (Just 4 Kidz Multivit-Probiotic) 1.25 mg Chew, Chew and Swallow daily ., Disp: , Rfl: perampaneL (Fycompa) oral suspension, Take 2 mL (1 mg total) by mouth daily (Days supply per fill: 30) ., Disp: 60 mL, Rfl: 5 polyethylene glycol (MIRALAX) 17 gram powder, 17 (seventeen) g by Per G Tube route every morning .,Disp: , Rfl: predniSONE 5 mg/5 mL solution, PRN ., Disp: , Rfl: promethazine (PHENERGAN) 12.5 MG suppository, Insert 1 (one) suppository (12.5 mg total) into the rectum every 6 (six) hours as needed for nausea ., Disp: , Rfl: Allergies as of 03/22/2024 - Reviewed 03/22/2024 Allergen Reaction Noted Levaquin [levofloxacin] 04/26/2017 Augmentin [amoxicillin-pot clavulanate] Rash 05/14/2016 Lactose intolerance [lactase] 02/24/2017 Penicillins Other (See Comments) 10/07/2018 Ragweed Unknown 05/14/2016 Immunization History Administered Date(s) Administered DTaP, Unspecified 1990, 1990, 02/16/1991, 01/25/1992, 09/22/1995 Hepatitis B 09/08/2000, 11/24/2000 HiB 1990, 1990, 02/16/1991, 01/25/1992 INFLUENZA IIV4 6MO OR > FLUARIX/FLUZONE/AFLURIA 97452 08/01/2016, 11/24/2016, 09/27/2019 IPV 07/02/2003 Influenza Whole 05/31/2004 Influenza, Injectable, Quadrivalent, Preservative Free 08/01/2016, 11/24/2016 Influenza, Seasonal, Injectable 07/13/2001, 07/02/2003 Influenza, Unspecified 06/24/2008, 06/02/2017 MMR 01/25/1992, 11/24/2000, 03/31/2003 Pneumococcal Polysaccharide (Pneumovax 23) 08/10/2008 Polio, Unspecified 1990, 1990, 01/25/1992 Varicella (Varivax) 04/21/1999 Past Medical History: Diagnosis Date Acute respiratory failure ([facility]) Due to MRSA pneumonia 04/2016; Allergic rhinitis Anoxic brain damage ([facility]) Aspiration, chronic pulmonary Bowel and bladder incontinence Cerebral palsy ([facility]) Chronic kidney disease Chronic osteomyelitis of pelvic region, right ([facility]) 2018 required right ischial debridement, followed by Dr. Noland of plastics Chronic respiratory failure with hypoxia ([facility]) 3 L NC, followed by Dr. Stephy Cisse and Dr. Amalia Terry Constipation COVID-19 06/2020 Epilepsy ([facility]) followed at [facility] neurology clinic GERD (gastroesophageal reflux disease) occasional vomiting with gagging MRSA (methicillin resistant Staphylococcus aureus) 04/2016 Bilateral lungs Muscle spasticity medically refractory and has baclofen pump since 1999, followed at [facility] neuro baclofen pump clinic Nonverbal Answers yes with very long blinks per adoptive parent PEG (percutaneous endoscopic gastrostomy) status ([facility]) Presence of intrathecal baclofen pump [address] 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 Urine retention occasional occurrence that requires straight cath periodically Wheelchair bound Past Surgical History: Procedure Laterality Date BACK SURGERY 1999 Marrufo rods placed BACLOFEN PUMP IMPLANTATION X 3- last 2009 CHOLECYSTECTOMY INCISION AND DRAINAGE LOWER EXTREMITY Right 12/02/2018 Procedure: INCISION AND DRAINAGE WITH BONE BIOPSY OF RIGHT ISCHIUM; Surgeon: Rad Luque MD; Location: [facility] Main OR; Service: Orthopedic INSERTION PERCUTANEOUS ENDOSCOPIC GASTROSTOMY TUBE INTRATHECAL PUMP REMOVAL Bilateral 07/15/2022 Procedure: REMOVAL OF RIGHT INTRATHECAL PUMP, CATHETER WITH REPLACEMENT ON LEFT SIDE; Surgeon: Jose Portillo MD; Location: [facility] NEURO OR; Service: Neurological LAMINECTOMY DECOMP THORACIC MULTI LEVEL N/A 07/27/2016 Procedure: T1-2 THORACIC FUSION REVISION ; Surgeon: Kb Ramsey MD; Location: [facility] Main OR; Service: REVISION PAIN PUMP N/A 07/27/2016 Procedure: BACLOFEN PUMP REPLACEMENT ; Surgeon: Kb Ramsey MD; Location: [facility] Main OR; Service: SALIVARY GLAND SURGERY Family History Adopted: Yes Family history unknown: Yes Social History Social History Narrative Not on file Vitals: 03/22/24 1237 03/22/24 1246 BP: 102/70 BP Location: Right arm Patient Position: Sitting BP Cuff Size: Adult Pulse: 97 Resp: 18 Temp: 97.6 F (36.4 C) TempSrc: Infrared SpO2: 96% (!) 87% Weight: 34 kg (75 lb) Height: 4' 4 EXAM: Gerneral: sleeping, NAD. Non verbal. Examined in wheelchair. Eyes: clear conjunctiva CVS: Slightly tachy, no edema Pulm: Peg helped lean her forward so I could auscultate her lungs. She has significant scoliosis and as a result chest wall and air movement are diminished and not symmetrical. Clear. Not labored. 87% on RA at rest. 88% on 4 l poc. 94% on 4 L POC Abdomen: active BS, soft, NT. She has feeding tube MS: Significant scolioss documented in this [id number] Note* Addendum Note - Celena Fields MD - 03/14/2024 9:00 AM EDTAddended by: CELENA FIELDS on: 03/14/2024 09:00 AM Modules accepted: Orders [id number] Note* Addendum Note - Celena Fields MD - 03/14/2024 9:00 AM EDTAddended by: CELENA FIELDS on: 03/14/2024 09:00 AM Modules accepted: Orders [id number] Miscellaneous Notes* Addendum Note - Celena Fields MD - 03/14/2024 9:00 AM EDTAddended by: CELENA FIELDS on: 03/14/2024 09:00 AM Modules accepted: Orders documented in this [id number] NoteR[facility]Pro[facility]07-16-2024 History of Present illness Narrative* Celena Fields MD - 03/14/2024 7:54 AM EDT [facility] Toxin Procedure Injection Note 03/14/24 Chief Complaint: botox for spasticity History of Present Illness: Ms. Claudine Joseph is a 33 year old female with history of cerebral palsy, epilepsy and severe spasticity with intrathecal baclofen pump who presents to spasticity clinic today for fourth lifetime botox injections for spasticity. At baseline, Claudine is wheelchair bound and makes 10-12 vocal sounds that her mother can recognize. She is accompanied by her mother, Peg today. First botox injections were given on for upper extremity spasticity and most recent injections were given 11/10/23. Peg says that Claudine did really well after her last injections. She saw her moving her arms and hands better and stretching. It is a great thing. Peg says that the last injections worked well. It is easier to get her arms up to wash under her arms and put deodorant on. They larry also wash her palms better than pre-botox. There is more movement at the elbow and Claudine will stretch her arms out straight on her own at times. In the last two weeks her botox has started wearing off. Taylors given valium last night to sleep due to her appointment this morning. Today she is still somnolent. Physical examination: General: Asleep in wheelchair Mental status: wakes briefly toward the end of injections Modified Estefani Score Left Right Upper extremity Arm adduction (pectoralis) 2 2 Elbow flexion (biceps, brachialis, brachioradialis) 3 3 Elbow extension (triceps) 2 2 Pronation (pronator teres, pronator quadratus) 2 2 Wrist flexion (FCR, FCU) 4 2 (ulnar deviation) MCP flexion (lumbricals) 0 0 PIP flexion (FDS) 1 2 DIP flexion (FDP) 1 2 Thumb opposition (opponens pollicis) 2 2 Thumb flexion (FPL) 0 2 GAIT: non-ambulatory Procedure: BOTULINUM TOXIN PROCEDURE INJECTION NOTE: Risks, side effects and benefits were reviewed. Consent was obtained from the patient. Onabotulinum toxin A was mixed in standard fashion: 7 100-unit vials are used including 1 100-unit vial of sample botox. 1 mL of preservative free saline is introduced into each vial. The resulting solution contains 100 units/mL. I used a 26 gauge injectable needle for accurate placement of botulinum toxin into the muscles. A 30 gauge needle was used for injection of the opponens pollicis for comfort. All areas to be injected were cleaned with alcohol swabs, and the injectable needle is aspirated prior to each deposition of botulinum toxin. EMG guidance was used. Muscles Injected (R/L): left and right upper extremities Muscle Left Prior Units Left Current Units Right Prior Units Right Current Units Upper Extremity Pectoralis Major 75 75 75 75 Brachialis 75 75 75 75 Brachioradialis Biceps brachii 50 50 50 50 Triceps 25 50 25 50 Pronator teres Pronator quadratus Flexor carpi radialis (FCR) Flexor carpi ulnaris (FCU) 25 25 Lumbricals Flexor digitorum superficialis (FDS) 25 25 Flexor digitorum profundus (FDP) 25 25 Flexor pollicis longus (FPL) Flexor pollicis brevis (FPB) Opponens pollicis 50 50 50 50 Adductor pollicis Lower Extremity Adductor longus Adductor brevis Rectus femoris Vastus Intermedius Vastus Lateralis Vastus Medialis Biceps femoris long head Semitendinosus Semimembranosus Biceps femoris short head Gastrocnemius - lateral and medial heads Soleus Tibialis posterior Flexor hallucis longus Flexor digitorum longus Flexor digitorum brevis Extensor hallucis longus Total 625 675 Assessment and Plan: Ms. Claudine Joseph is a 33 year old female with history of cerebral palsy, epilepsy and severe spasticity with intrathecal baclofen pump who presents to spasticity clinic today for repeat botox injections for spasticity. At baseline, Claudine is wheelchair bound and makes 10-12 vocal sounds that her mother can recognize. She has spasticity of bilateral upper extremities that we target with botox.Botox has resulted in improved flexibility, independent movement and provided better ease of care for her mother. Today, we increased doses of the bilateral triceps based on examination. All other regions were kept the same due to reports of excellent response to past injections. 1. Follow up in 90 days for repeat botulinum toxin injections. 2. Following your injections today, it will take up to 14 days to notice the full benefit. 3. Please call with any questions or concerns. We recommend practicing good spasticity hygiene: - Stretch upon waking, partway through the day, and before bed every day - Stay adequately hydrated - Treat constipation, urinary retention, bladder infections - Check dependant areas of the body every day for redness / skin breakdown - Exercise! Movement is camejo. Try yoga, magan chi, or water aerobics. - Stop to stretch during long periods of sitting (long car ride, business meeting) - Don't get too cool. Cold often worsens spasticity. Celena Fields MD Neuroimmunology & Multiple Sclerosis [facility] documented in this [id number] Telephone encounter Note* Telephone Encounter - Janet Obrien RN - 02/21/2024 12:21 PM EDT Patient mother called to have all AED's transferred to [facility], due to [facility] closing. [id number] Miscellaneous Notes* Telephone Encounter - Janet Obrien RN - 02/21/2024 12:21 PM EDT Patient mother called to have all AED's transferred to [facility], due to [facility] closing. documented in this [id number] History of Present illness Narrative* Richar Talbert MD - 01/18/2024 1:23 PM EDT [facility] [address], [place] [address] (office) / [phone] (fax) REFERRING or PRIMARY: Marielle Duque Md [address] [place] [address] DATE OF VISIT: 01/18/24 PATIENT NAME: Claudine Joseph DATE OF : 1990 CHIEF COMPLAINT: Seizures (Pt here for follow up. Pt health policy nurse reports no seizures but has been crying constantly since starting her new seizure medication. ) INTERVAL HISTORY: This is a 33 y.o. female returning for follow-up regarding a chief complaint of Seizures (Pt here for follow up. Pt health policy nurse reports no seizures but has been crying constantly since starting her newseizure medication. ) I last saw her here in the clinic roughly 3 years ago 12/18/2020. In the interim she has been following with ROCKY Wright. At her last visit with us she was having worsening of her seizures. It appears they escalated her Keppra dose to 1750 twice a day without significant effect. Fycompa/perampanel was added via phone messaging. The pharmacy she goes to apparent was unable to get the liquid or 2 mg tablets of this medication. They have been cutting the 4 mg tablets in half but note that they are very small and do not break evenly. She has been on this now for about 3 weeks.They have noticed a significant decline in her mood with frequent crying episodes on a daily basis.It does appear that she did not tolerate higher doses of Keppra in the past as well. It is noted that the prescription was entered into [facility] as 1 mg daily but we can confirm that the 4mg tablets is what she received. She has however been seizure-free for the past couple weeks which is a complete surprise that she has undergone more than a few days in her life without breakthrough seizures. She has had a few recent medical issues but otherwise no neurological symptoms recently. She has a history of CP and probable anoxic injury at . Her entire early history is not known as she was adopted by her adoptive mother at the age of [age]. She has previously followed with the [facility] but is transitioning to local docs. Semiology: -Little ones occurs every other day reports she will stare with tonic activity will verbalize like a laugh, head to the left with tonic-clonic activity. -Large Ones reports not anything like they were as above. Initial frequency was daily She has never been seizure free for more then 2-3 days her entire life. There are no identified triggers Seizure Risk Factors: Head trauma No H[employer] HAND Infections No Stroke/IPH No Family history Unknown Gestational, Delivery, or Developmental Abnormalities Cerebral anoxia at . Febrile seizures Unknown. Prior workup: MRI- was completed but report was not available today EEG- From [facility] 1999 Álvaro, Generalized, Maximum bifrontal, 2001 Intermittent Rhythmic Slow, Generalized and regional Left Occipital EEG 2016- mild to moderate diffuse encephalopathy that is nonspecific. EMU- None PET- None SPECT- None Neuropsych eval- None LTG level 11/21/16- 9.1 All available testing was reviewed. Current Anti-convulsants(Prior to any changes today): LTG 250 BID, LVT 1750 BID(Does not tolerate higher doses), Epidiolex 3.5 ml BID. Valium 2-6mg PRN, Fycompa 2mg QD Valtoco PRN Prior Anti-convulsants (Tried in Bold): BRV, CBZ, Clobazam, Clonazepam, Aptiom, Ethosuximide, GBP, LCM, LTG, LVT, OXC, Fycompa, PHB, PHT, Prim, PGB, RUF, VPA, TGB, TPM, Vigabtrin, ZNG Other The patients prior medical, family, and social history was reviewed and is unchanged except as above. She has a past medical history of Acute respiratory failure ([facility]), Allergic rhinitis, Anoxic brain damage ([facility]), Aspiration, chronic pulmonary, Bowel and bladder incontinence, Cerebral palsy ([facility]), Chronic kidney disease, Chronic osteomyelitis of pelvic region, right ([facility]) (2018), Chronic respiratory failure with hypoxia ([facility]), Constipation, COVID-19 (06/2020), Epilepsy ([facility]), GERD (gastroesophageal reflux disease), MRSA (methicillin resistant Staphylococcus aureus) (04/2016), Muscle spasticity, Nonverbal, PEG (percutaneous endoscopic gastrostomy) status ([facility]), Presence of intrathecal baclofen pump (1999), Restrictive lung disease due to kyphoscoliosis, Urine retention, and Wheelchair bound. Medications: Current Outpatient Medications: acetaminophen (TYLENOL) 325 MG tablet, 2 (two) tablets (650 mg total) by G-tube route every 6 (six)hours as needed for pain ., Disp: , Rfl: acetic acid 0.25 % irrigation, 120 mL daily Flush for bladder ., Disp: , Rfl: baclofen 40,000 mcg/20mL (2,000 mcg/mL) Soln, Simple continuous infusion ITB at daily dose of 651 mcg/day. ., Disp: 40 mL, Rfl: 6 cannabidioL (Epidiolex) 100 mg/mL Soln, 3.5 mL (350 mg total) by G-tube route 2 (two) times a day ., Disp: 220 mL, Rfl: 3 cholecalciferol, vitamin D3, 50 mcg (2,000 unit) cap, 1 (one) capsule by G-tube route every morning., Disp: , Rfl: diazePAM (VALIUM) 2 MG tablet, 3 (three) tablets (6 mg total) by Per G Tube route daily as needed For seizures ., Disp: 30 tablet, Rfl: 0 diazePAM (Valtoco) 15 mg/2 spray (7.5/0.1mL x 2) Novi, 7.5 mg by Each Nare route as needed (for seizure or seizure cluster. Can repeat in 4 hours if needed.) ., Disp: 8 each, Rfl: 2 doxycycline monohydrate (ADOXA) 100 MG tablet, Take 1 (one) tablet (100 mg total) by mouth daily .,Disp: , Rfl: fluconazole (DIFLUCAN) 150 MG tablet, by Per G Tube route When taking antibiotics ., Disp: , Rfl: fluticasone propionate (FLONASE) 50 mcg/actuation nasal spray, Instill 1 (one) spray into each nostril daily as needed for rhinitis ., Disp: 16 g, Rfl: 11 guaifenesin (MUCINEX ORAL), Take by mouth 2 (two) times a day as needed Children's powder ., Disp: , Rfl: guaiFENesin (ROBITUSSIN) 100 mg/5 mL syrup, 10 mL (200 mg total) by G-tube route 3 (three) times a day as needed for cough ., Disp: , Rfl: ipratropium (ATROVENT) 0.02 % nebulizer solution, inhale contents of 1 vial in nebulizer twice a day IF CONGESTED OR WHEEZING OR LABORED CAN TAKE UP TO FOUR TIMES DAILY ., Disp: 300 mL, Rfl: 11 lamoTRIgine (LAMICTAL) 100 MG tablet, take 1 tablet by mouth twice a day ALONG WITH 150 MG TABLET TO EQUAL 250 MG PER DAY, Disp: 60 tablet, Rfl: 1 lamoTRIgine (LAMICTAL) 150 MG tablet, TAKE 1 TABLET PER G TUBE TWICE A DAY, Disp: 60 tablet, Rfl: 3 levETIRAcetam (KEPPRA) 100 mg/mL solution, 17.5 mL (1,750 mg total) by Per G Tube route 2 (two) times a day ., Disp: 930 mL, Rfl: 6 loratadine (CLARITIN) 10 mg tablet, 1 (one) tablet (10 mg total) by G-tube route every morning ., Disp: , Rfl: medroxyPROGESTERone (DEPO-PROVERA) 150 mg/mL Syrg, INJECT 1ML INTRAMUSCULARLY EVERY 10 TO 13 WEEKS,Disp: , Rfl: montelukast (SINGULAIR) 10 mg tablet, 1 (one) tablet (10 mg total) by Per G Tube route daily ., Disp: , Rfl: multivitamin/iron/folic acid (CENTRUM ORAL), 10 mL by G-tube route every morning ., Disp: , Rfl: omeprazole (PRILOSEC) 40 MG capsule, 1 (one) capsule (40 mg total) by G-tube route every morning .,Disp: , Rfl: pedi multivit 200-B. coagulans (Just 4 Kidz Multivit-Probiotic) 1.25 mg Chew, Chew and Swallow daily ., Disp: , Rfl: perampaneL (Fycompa) tablet, Take 0.5 (one-half) tablet (2 mg total) by mouth daily ., Disp: 15 tablet, Rfl: 5 polyethylene glycol (MIRALAX) 17 gram powder, 17 (seventeen) g by Per G Tube route every morning .,Disp: , Rfl: predniSONE 5 mg/5 mL solution, PRN ., Disp: , Rfl: promethazine (PHENERGAN) 12.5 MG suppository, Insert 1 (one) suppository (12.5 mg total) into the rectum every 6 (six) hours as needed for nausea ., Disp: , Rfl: ROS: The following system(s) were reviewed. Pertinent positive and negative findings are noted in the HPI. Not obtainable due to MS/Non-verbal. PHYSICAL EXAMINATION Resp 16 Ht 4' 4 Wt 34 kg (75 lb) BMI 19.50 kg/m Physical Exam Neurologic Exam General: No acute distress, alert, and oriented x3. CV: No edema RESP: Normal effort MSK: Normal ROM Skin: No rashes Neuro: Mental Status: Speech is fluent and clear. Cranial nerves: Pupils are equal and reactive to light. Extra-ocular movements are intact. No facial weakness is seen. Auditory acuity is normal. Motor: PAREDES with normal strength. No tremor. Sensation: Intact light touch Reflexes: NT Coordination: Normal. Gait: Deferred IMPRESSION/PLAN This is a 33 y.o. female with: 1. Intractable symptomatic generalized epilepsy (HCC) 2. Mood disturbance -Neurologically complex patient. Requiring multiple anticonvulsants plus rescue regimen for her intractable seizures. -She has had a remarkable response to the initiation of perampanel however is having significant and debilitating adverse effects. Is possible this is related to the combination of her Keppra and perampanel. At her weight her perampanel dose may need to be titrated slower. We elected to try a different pharmacy to try and get the liquid perampanel at a dose of 1 mg/day with potential to re-uptitrate on a more gradual schedule. -For seizure rescue with her larger seizures we will use intranasal diazepam for longer effect. Shemay still be able to use the p.o. for smaller events. - perampaneL (Fycompa) oral suspension; Take 2 mL (1 mg total) by mouth daily (Days supply per fill: 30) . Dispense: 60 mL; Refill: 5 They were encouraged to alert us if they fail to improve or worsen prior to their next scheduled visit. Sincerely, Richar Talbert MD, ABPN Adult Epileptologist/Neurologist [facility] A Level 4, [facility]-Certified [facility] Thank you for allowing me to participate in the care of this patient. If you have any questions, please feel free to contact my office. Return in about 3 months (around 04/19/2024) for YUDY Wright. documented in this [id number] History of Present illness Narrative* Mignon Jordan OT - 01/13/2024 3:30 PM EDT [facility] OUTPATIENT REHABILITATION DAILY TREATMENT NOTE Today's Date 01/13/2024 Patient Name: Claudine Joseph Date of : 1990 Current Visit #: 2 Authorized Visits: 30 Case Name: OT-Spasticity History: Pre-Treatment Pain Scale: Patient unable to rate pain due to communication and cognitive deficits. Symptoms: Patient not giving any physical indications of pain or discomfort at rest. Functional Diagnosis: 1. Muscle spasticity 2. Spasticity Clinical Information: Subjective: Patient's guardian present during entire session for caregiver education on PROM HEP and positioning and handling. Objective Treatments: Occupational Therapy Exercise Log - 01/13/24 1638 OTHER Precautions/Contraindications OT visit 2 Notes Total treatment time: 15:31-16:17. Therapeutic Exercise (49758) Intervention PROM HEP education to promote improved joint mobility and muscle balance in bilateral upper extremities as well as upper thoracic region for improved pain management and handling for ADLand positioning needs. Parameters Printed program provided, supporting printed information on scapular mobility provided, education on caregiver positioning and handling for optimal biomechanics and care of caregiver. OT Treatment Times Therex Total Time 46 Direct Treatment Time 46 Total Treatment Time 46 Goals: Occupational Therapy Neuro goals: 1. Patient and caregiver will actively participate in HEP education for PROM of bilateral upper extremities to promote optimal muscle balance to address pain management and spasticity for improved tolerance of ADL and positioning needs. ADDRESSED 01/13/2024 2. Patient and caregiver will participate in exploration of orthotic/splinting/bracing needs to promote optimal positioning of bilateral upper extremities to maintain skin integrity for hygiene and pain management needs. ADDRESSED 01/13/2024 Patient Education: Written HEP and optimal positioning and caregiving biomechanics with patient demonstrated understanding, verbalized understanding, and written information provided . Post-Treatment Pain Scale: Patient providing nonverbal responses to discomfort with PROM but management of discomfort after task completed. Assessment: Patient had an expected response to treatment. Skilled Intervention demonstrated by modifications of treatment per exercise log including assessment of patient's response and safety interventions per exercise log. AND Progress towards goals as expected. Plan for Next Visit: Discharge Mignon Jordan OTR/L STATE LICENSE, [id number] documented in this [id number] History of Present illness Narrative* Mignon Jordan OT - 01/11/2024 2:38 PM EDT This note is to serve as documentation for today's session cancellation. Information obtained through outpatient registration staff. Per report, patient's mother called to cancel today due to schedule conflicts. Patient's mother working with outpatient music therapy specialist to schedule additional visi ts. documented in this [id number] History of Present illness Narrative* Mignon Jordan OT - 01/07/2024 2:28 PM EDT This note is to serve as documentation for today's session cancellation. Information obtained through outpatient registration staff. Per report, the patient's mother called to cancel due to both she and the patient being sick. documented in this [id number] Telephone encounter Note* Telephone Encounter - Carola Paul MA - 01/07/2024 8:18 AM EDT Last appt 08/2023, next appt 12/2023 [id number] Miscellaneous Notes* Telephone Encounter - Carola Paul MA - 01/07/2024 8:18 AM EDT Last appt 08/2023, next appt 12/2023 documented in this [id number] History of Present illness Narrative* Mignon Jordan OT - 12/28/2023 12:30 PM EDT [facility] OUT[facility]IENT REHABILITATION Occupational Therapy Evaluation Today's Date 12/28/2023 Patient Name: Claudine Joseph Date of : 1990 Case Name: OT-Spasticity Functional Diagnosis: 1. Spasticity 2. 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HCC) Clinical Information: Subjective Referring Diagnosis: G80.1 (ICD-10-CM) - 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HCC) Patient accompanied by: The patient's guardian and adoptive mother, Peg, jian. History of Present Illness Per medical records dated: Information taken during follow-up appointment at spasticity clinic on 12/13/2023 Contemporary Medical History: Past medical history of Acute respiratory failure ([facility]), Allergic rhinitis, Anoxic brain damage ([facility]), Aspiration, chronic pulmonary, Bowel and bladder incontinence, Cerebral palsy ([facility]), Chronic kidney disease, Chronic osteomyelitis of pelvic region, right (HCC) (2018), Chronic respiratory failure with hypoxia ([facility]), Constipation, COVID-19 (06/2020), Epilepsy ([facility]),GERD (gastroesophageal reflux disease), MRSA (methicillin resistant Staphylococcus aureus) (04/2016), Muscle spasticity, Nonverbal, PEG (percutaneous endoscopic gastrostomy) status ([facility]), Presence ofintrathecal baclofen pump (1999), Restrictive lung disease due to kyphoscoliosis, Urine retention, and Wheelchair bound. She has a past surgical history that includes Peg Tube Insertion; Baclofen pump implantation; Salivary gland surgery; Back surgery (1999); Cholecystectomy; Pain Pump Revision (N/A, 07/27/2016); Laminectomy Decomp Thoracic Multi Level (N/A, 07/27/2016); Incision And Drainage Lower Extremity (Right, 12/02/2018); and Intrathecal Pump Removal (Bilateral, 07/15/2022). Subjective History: Patient presenting for OP OT evaluation following recent follow-up appointment as spasticity clinic and recent upper extremity Botox injections that occurred on 11/12/2023. Patient also recently had an intrathecal baclofen pump replacement which addresses spasticity needs in herbilateral lower extremities. During the patient's follow-up appointment, it was determined the patient and her guardian would benefit from caregiver education on PROM HEP to address bilateral upper extremity spasticity concerns to improve pain management during hygiene and ADL performance. Patient is currently performing at baseline for ADLs, which is dependent for all ADLs and functional transfers. Patient is dependent for mobility and relies on use of transport chair. Evaluation Treatments: Occupational Therapy Exercise Log No documentation. Treatment Plan: Frequency of Visits: 2 visits Duration: 2 weeks Interventions: Therapeutic Exercise (10082), Manual Therapy (45933), Therapeutic/ Functional Activities (29948), Self Care (69109), and Orthotic Management - Initial (20939) Rehab Potential: fair Occupational Therapy Neuro goals: No data was found Patient Education provided: Discussed Plan of care frequency and duration, treatment plan, importance of attendance for recovery, team concept, and diagnosis/pathophysiology/prognosis. Pt is in agreement with plan, and all questions at this time were answered Occupational Profile/Client History High Complexity - Occupational Profile and medical history includes review history of medical and/or therapy records and includes extensive additional review of physical, cognitive, or psychosocial history. Patient Assessment: Number of performance deficits causing inability to complete activities due to the lack of skills relating to physical, cognitive, or psychosocial skills) Performance deficits include: Balance impairments, Fine motor coordination impairments, and Gross motor coordination impairments 3-5 (Moderate) performance deficits identified which result in limitations and/or participation restriction. Clinical Decision Making: Low Complexity - low complexity of clinical decision making including occupational profile/data, consideration of a limited number of treatment options; patient presents with no co morbidities that affect occupational performance; modification of task or assistance in taskis not required.. Patients comorbidities affecting occupational performance include: hx of neurological disease Clinical Impression: Claudine Joseph presents to [facility] on 12/28/2023 for an occupational therapy assessment with c/o QQQQ. Upon assessment QQQQ . These performance deficits impact Claudine Joseph's ability to participate in the following performance in areas of tolerance of hygiene and ADL performance. Potential barriers to rehabilitation include chronicity or severity of the current condition. The patient would benefit from skilled Occupational Therapy services focused on the above listed performance deficits in order to achieve the goals as noted. Plan of care to be revised as needed based on response to therapeutic intervention. Thank you for allowing me to participate in this patient's care. Please contact me with any questions at the above number. LUI Luciano/L STATE LICENSE, [id number] documented in this [id number] History of Present illness Narrative* Mignon Jordan OT - 12/28/2023 12:30 PM EDT [facility] OUTPATIENT REHABILITATION Occupational Therapy Evaluation Today's Date 12/28/2023 Patient Name: Claudine Joseph Date of : 1990 Case Name: OT-Spasticity Functional Diagnosis: 1. Spasticity 2. 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HCC) Clinical Information: Subjective Referring Diagnosis: G80.1 (ICD-10-CM) - 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HCC) Patient accompanied by: The patient's guardian and adoptive mother, jian Ruvalcaba. History of Present Illness Per medical records dated: Information taken during follow-up appointment at spasticity clinic on 12/13/2023 Contemporary Medical History: Past medical history of Acute respiratory failure ([facility]), Allergic rhinitis, Anoxic brain damage ([facility]), Aspiration, chronic pulmonary, Bowel and bladder incontinence, Cerebral palsy ([facility]), Chronic kidney disease, Chronic osteomyelitis of pelvic region, right ([facility]) (2018), Chronic respiratory failure with hypoxia ([facility]), Constipation, COVID-19 (06/2020), Epilepsy ([facility]),GERD (gastroesophageal reflux disease), MRSA (methicillin resistant Staphylococcus aureus) (04/2016), Muscle spasticity, Nonverbal, PEG (percutaneous endoscopic gastrostomy) status ([facility]), Presence ofintrathecal baclofen pump (1999), Restrictive lung disease due to kyphoscoliosis, Urine retention, and Wheelchair bound. She has a past surgical history that includes Peg Tube Insertion; Baclofen pump implantation; Salivary gland surgery; Back surgery (1999); Cholecystectomy; Pain Pump Revision (N/A, 07/27/2016); Laminectomy Decomp Thoracic Multi Level (N/A, 07/27/2016); Incision And Drainage Lower Extremity (Right, 12/02/2018); and Intrathecal Pump Removal (Bilateral, 07/15/2022). Subjective History: Patient presenting for OP OT evaluation following recent follow-up appointment as spasticity clinic and recent upper extremity Botox injections that occurred on 11/12/2023. Patient also recently had an intrathecal baclofen pump replacement which addresses spasticity needs in herbilateral lower extremities. During the patient's follow-up appointment, it was determined the patient and her guardian would benefit from caregiver education on PROM HEP to address bilateral upper extremity spasticity concerns to improve pain management during hygiene and ADL performance. Patient is currently performing at baseline for ADLs, which is dependent for all ADLs and functional transfers. Patient is dependent for mobility and relies on use of transport chair. Previous Treatment for this condition: No Overall rating of health: Good Pain Scale Average Pain: 0/10 Personal Goals: The patient's caregiver voiced intent for PROM HEP education to promote muscle balance in both upper extremities and to manage pain with hygiene/ADL and positioning needs. Functional Mobility Status Functional Limitations: limited mobility caregiver reported Current Mobility Status: Home: manual WC Community: manual WC Comments: Patient is a mechanical lift for functional transfers and utilizes transport chair for mobility needs. Patient is dependent for functional transfers and is reliant on caregiver to operate transport chair. Current Activity Level: sedentary Premorbid Activity Level: sedentary Patient is at baseline for ADLs and functional transfers. Social Support: Patient lives with others. Additional Social Support: Patient lives with her guardian, who is also her adoptive mother. Caregiver reports that patient was adopted at a young age in addition to 3 other high needs individuals. Restoration, social, or cultural considerations to be made aware of before starting treatment: No Home Environment Current Home Environment: unchanged Setup: single story house Entry: ramp Animals in the home: no Do you feel safe at home? Yes Activities of Daily Living: caregiver reported (Patient is dependent for all self-care ADLs, which is her baseline.) Instrumental Activities of Daily Livingcaregiver reported (Patient is dependent for all homemaking IADLs, which is her baseline.) Sleep Assessment Sleep disturbance: no Sleep Disturbance Red Flags: None Comments: Barriers to Care: Chronicity or severity of impairments and Cognition Fall risk screening Fallen 2 or more times in the last 12 months: No Injured as a result of a fall in the last 12 months: No Restoration, social, or cultural considerations to be made aware of before starting treatment: No Objective Affected side: bilateral Cognition/ Mental Status Oriented x4: No Follows commands: TBA Attention: Therapist observation : impaired Sequencing: Therapist observation : impaired Problem solving simple: Therapist observation : impaired Problem solving complex: Therapist observation : impaired Safety & Judgement/Insight: Therapist observation : impaired Memory and Orientation: Therapist observation : impaired Cognitive Status Notes: Attention and cognitive processing skills deficits highlighted above are atpatient's baseline. Patient does have PMH of anoxic brain injury. Vision/ Perceptual Skills Subjective symptoms: Unable to accurately screen at this time due to attention and cognitive deficits noted above. Patient is also nonverbal, which presents further barriers for accurate screening. Upper Extremity Motor Assessment Passive Range of Motion: Shoulder PROM: Flexion: R WFL L WFL Scaption: R WFL L WFL Abduction: R WFL L WFL External Rotation: R impaired L impaired Elbow ROM: Flexion: R WFL L WFL Extension: R WFL L WFL Forearm PROM: Supination: R WFL L WFL Pronation: R WFL L WFL Wrist PROM: Flexion: R impaired L impaired Extension: R impaired L impaired Additional Comments: Modified Estefani Scale: Elbow: /4, Wrist: /4, Fingers: /4, Thumb: /4 Grasping and Prehension Skill Gross Grasp Right: absent Left: absent Gross Extension Right: absent Left: absent Skilled prehensions Right: absent Left: absent Neuromotor Neuromotor Coordination: Gross Motor Coordination: Right impaired and Left impaired Fine Motor Coordination: Right impaired and Left impaired Treatment Plan: Frequency of Visits: 2 visits Duration: 2 weeks Interventions: Therapeutic Exercise (03518), Manual Therapy (82838), Therapeutic/ Functional Activities (42627), Self Care (26178), and Orthotic Management - Initial (77482) Rehab Potential: fair Occupational Therapy Neuro goals: 1. Patient and caregiver will actively participate in HEP education for PROM of bilateral upper extremities to promote optimal muscle balance to address pain management and spasticity for improved tolerance of ADL and positioning needs. 2. Patient and caregiver will participate in exploration of orthotic/splinting/bracing needs to promote optimal positioning of bilateral upper extremities to maintain skin integrity for hygiene and pain management needs. Patient Education provided: Discussed Plan of care frequency and duration, treatment plan, importance of attendance for recovery, team concept, and diagnosis/pathophysiology/prognosis. Pt is in agreement with plan, and all questions at this time were answered Occupational Profile/Client History High Complexity - Occupational Profile and medical history includes review history of medical and/or therapy records and includes extensive additional review of physical, cognitive, or psychosocial history. Patient Assessment: Number of performance deficits causing inability to complete activities due to the lack of skills relating to physical, cognitive, or psychosocial skills) Performance deficits include: Balance impairments, Fine motor coordination impairments, and Gross motor coordination impairments 3-5 (Moderate) performance deficits identified which result in limitations and/or participation restriction. Clinical Decision Making: Low Complexity - low complexity of clinical decision making including occupational profile/data, consideration of a limited number of treatment options; patient presents with no co morbidities that affect occupational performance; modification of task or assistance in taskis not required.. Patients comorbidities affecting occupational performance include: hx of neurological disease Clinical Impression: Claudine Joseph presents to [facility] on 12/28/2023 for an occupational therapy assessment with education needs for PROM HEP to address bilateral upper extremityspasticity concerns to improve pain management during hygiene and ADL performance. These performance deficits impact Claudine Joseph's ability to tolerate in the following performance in areas of tolerance of hygiene and ADL performance. Potential barriers to rehabilitation include chronicity or severity of the current condition. The patient would benefit from skilled Occupational Therapy services focused on the above listed performance deficits in order to achieve the goals as noted. Plan of care to be revised as needed based on response to therapeutic intervention. Thank you for allowing me to participate in this patient's care. Please contact me with any questions at the above number. Mignon Jordan OTR/L STATE LICENSE, [id number] documented in this [id number] History of Present illness Narrative* Elodia Bird OT - 12/13/2023 3:17 PM EDT Pt seen today in [facility] clinic for therapy screen. Most recent therapy services: None ADLs/IADLs screen: Dependent assist with all ADLs and functional mobility. Upper Extremity Screen: Recent botox BUE, mother motivated to learn stretching program for BUE. Device/Equipment: Power wheelchair Current routine exercise program: None Therapy needs identified: OP neuro OT for caregiver training/stretching program (anticipate brief plan of care) Desired location: [facility] Education provided: Diagnosis specific education regarding role of therapy No charge for OT screen this date. Will continue to follow at [facility] clinic and assess for OT related needs. * Ruma Godwin CNP - 12/13/2023 2:00 PM EDT [facility] Spasticity Clinic: Intrathecal Baclofen Therapy Progress Note 12/13/2023 CHIEF COMPLAINT Spasticity follow up from 09/22/2022 Dr. Estuardo Moncada No show 09/09/2023 IMPRESSIONS AT LAST VISIT / INTERM HISTORY The patient is a 32 y.o. female with a past medical history of cerebral palsy with spasticity controlled with an intrathecal baclofen pump who is presenting to the clinic after a pump replacement due to infection. Spasticity In regards to the patient's spasticity, this is fairly well controlled in her lower extremities secondary to pump. We will maintain this dose as it is. The patient does have significant issues with her upper extremities. At this point, I feel that it would be worthwhile to evaluate the patient for Botox therapy. I think she could benefit from improvements in her range of motion which would aid with cleaning and dressing the patient. I will make a referral to my colleague Dr. Fields in order to evaluate for Botox. Follow-up From a intrathecal baclofen pump standpoint, we will maintain her dose as it is, we will follow herup in 1 year. We will defer refilling the pump to her home service. CONTEMPORARY HISTORY Claudine presents to clinic with her mom Peg in transport chair for ITB therapy annual visit. Claudine is having her pump refilled at home which is much easier on her. She feels current dose 651mcg/day is controlling her spasticity. Claudine recently started Botox with Dr. Fields. Peg reports is pleased with response to botox forBUE. Reports ease in positioning and opening fingers and being able to wash in her hands. Peg denies any recent infection or skin breakdown. OTHER RELEVANT HISTORY [facility]le ROS - 12/13/23 1412 General Change in weight No Fever No Chills No Night Sweats No Cough No Shortness of Breath No Joint pain / swelling No Muscle pain / cramps No Chest pain No Palpitations No Nausea / Vomiting No Neurologic Double vision No Blurred / decreased vision No Difficulty swallowing No Difficulty with speech No Numbness / tingling No Painful skin sensations No Muscle weakness No Heat sensitivity No Motor fatigue No Incoordination/ poor balance No Difficulty walking No Recent Falls No L'hermitte No Difficulty with thinking and memory No Pathologic fatigue No Depression No Anxiety No Urinary urgency No Urinary frequency No Urinary retention / hesitancy No Recent Urinary Tract Infections No Bowel complaints No Sexual Dysfunction No Poor sleep No Headaches No Recent Seizures No She has a past medical history of Acute respiratory failure ([facility]), Allergic rhinitis, Anoxic brain damage ([facility]), Aspiration, chronic pulmonary, Bowel and bladder incontinence, Cerebral palsy ([facility]), Chronic kidney disease, Chronic osteomyelitis of pelvic region, right ([facility]) (2018), Chronic respiratory failure with hypoxia ([facility]), Constipation, COVID-19 (06/2020), Epilepsy ([facility]), GERD (gastroesophageal reflux disease), MRSA (methicillin resistant Staphylococcus aureus) (04/2016), Muscle spasticity, Nonverbal, PEG (percutaneous endoscopic gastrostomy) status ([facility]), Presence of intrathecal baclofen pump (1999), Restrictive lung disease due to kyphoscoliosis, Urine retention, and Wheelchair bound. She has a past surgical history that includes Peg Tube Insertion; Baclofen pump implantation; Salivary gland surgery; Back surgery (1999); Cholecystectomy; Pain Pump Revision (N/A, 07/27/2016); Laminectomy Decomp Thoracic Multi Level (N/A, 07/27/2016); Incision And Drainage Lower Extremity (Right, 12/02/2018); and Intrathecal Pump Removal (Bilateral, 07/15/2022). She reports that she has never smoked. She has never used smokeless tobacco. She reports that she does not drink alcohol and does not use drugs. Social History Social History Narrative Not on file She She was adopted. Family history is unknown by patient. Allergies Allergen Reactions Levaquin [Levofloxacin] Rash, flushing with RUE arm swelling. Augmentin [Amoxicillin-Pot Clavulanate] Rash Per mother- tolerates Zosyn, unable to tolerate amoxil (blisters upper extremity) Lactose Intolerance [Lactase] Penicillins Other (See Comments) Blisters- amoxil Ragweed Unknown She has a current medication list which includes the following prescription(s): acetaminophen, acetic acid, baclofen, epidiolex, cholecalciferol (vitamin d3), diazepam, valtoco, doxycycline monohydrate, fluconazole, fluticasone propionate, guaifenesin, guaifenesin, ipratropium, lamotrigine, lamotrigine, levetiracetam, loratadine, medroxyprogesterone, montelukast, multivitamin/iron/folic acid, omeprazole, just 4 kidz multivit-probiotic, polyethylene glycol, prednisone, and promethazine. PHYSICAL EXAMINATION Vital Signs: Blood pressure (!) 89/65, pulse 96, weight 34 kg (75 lb). General Appearance: in no apparent distress Eyes: Anicteric sclerae. Moist conjunctivae. No lid edema noted. HENT: Head atraumatic, normocephalic. Oropharynx clear. Moist mucous membranes. Neck/ Thyroid:trachea midline. Supple. No massess. No thyromegaly. Lungs: Normal respiratory effort. No intercostal retractions. No dyspnea during conversation. Abdomen: soft, non-distended Extremities: no clubbing, cyanosis, pedal edema, ulcer nor wound noted. Skin: warm, dry, no rash, no ecchymoses, no petechiae noted Pysch: non verbal NEUROLOGICAL EXAMINATION Mental Status is awake, tracks examiner, non verbal Modified Estefani Score: EE EF Hip add KE KF DF PF Right 1 1 0 0 Left 3 2 0 0 Able to open fingers bilaterally Wheelchair/bed bound ITB TELEMETRY and OTHER DATA I have independently reviewed the ITB pump system telemetry. ASSESSMENT Claudine Joseph is a 33 y/o female with medically refractory, severe spasticity secondaryto CP managed with intrathecal baclofen therapy who presents for annual ITB pump visit and pump refill. Mom reports no change in spasticity, BUE improvement since botox therapy started. She is pleased with having pump refilled in the home. Based on today s history, physical examination and review of ITB telemetry, I feel her severe spasticity is under adequate control. I refilled her pump and maintained her current dose of 651 mcg/day. Current ITB goals include: decrease cramps and spasms, spasticity related pains, loosen thelegs, loosen the arms, improve options for seating and positioning, help prevent contractures and bed sores, improve caregiver ease of care Other associated diagnoses / active problems for this visit include: weakness, spasticity, requireswheelchair / scooter for mobility, OT to work with BUE since start of botox therapy. INTRATHECAL BACLOFEN SYSTEM INFORMATION FOR Claudine Joseph Severe Spasticity due to: Cereberal palsy Implanted: 07/15/[address] Bridgette RENE date: March 2029 (<65 months) Synchromed I IPump Size: 40 mL Willard Location: 1:30 Catheter Tip Placement: PLAN REGARDING INTRATHECAL BACLOFEN THERAPY First Medication Brand: Baclofen Concentration: 2000 mcg/mL Total Daily Dose: 651 mcg/day 1. Pump Programming: Simple Continuous 2. Pump Esto Refill: The injection site was prepped sterilely, landmarks were identified, and the pump was accessed with a coring needle. Approximately 9 (6.8 calculated) cc of clear, colorless fluid was removed from the reservoir. The reservoir was then refilled with 40 ml of 2000mcg/ml baclofen for intrathecal administration. No difficulties were noted, and the pressure was within acceptable limits. kit # [id number]: concentration 2000 mcg/ml, volume 40 ml was used. 3. Programming Adjustments today: Refilled pump and maintained current dose 4. ITB system Procedures today: pump computer interrogation, pump computer reprogramming, and pump reservoir refill 5. Last reservoir refill date: 12/13/23 6. Pump Low Esto Alarm Date: 04/07/24 7. Claudine Joseph and/or her caregivers have verbal consents to all of the ITB system adjustments and procedures performed today PLAN REGARDING ADJUNCTIVE SPASTICITY THERAPIES 1. Noxious stimulation worsens spasticity. This included when the weather is cold outside, urinary tract infections and other infections, pressure sores, poor seating or sleeping ergonomics, constipation and urinary retention. she is encouraged to report any of these symptoms. 2. We recommend practicing good spasticity hygiene: A. Stretch upon waking, partway through the day, and before bed every day B. Stay adequately hydrated C. Treat constipation, urinary retention, bladder infections D. Check dependant areas of the body every day for redness / skin breakdown E. Exercise! Movement is camejo. Try yoga, magan chi, or water aerobics. D. Stop to stretch during long periods of sitting (long car ride, business meeting) F. Don't get too cool. Cold often worsens spasticity. 3. We will have Neuro OT see her today for recommendations; placed referral for Outpatient Neuro Maritza Neville. PLAN REGARDING FOLLOW UP We will schedule follow up with [facility] for 1 week before her alarm date, which is 04/07/2024 for pump refill. I strongly recommend that she keep an up-to-date emergency bottle of oral baclofen with her at all times to take for withdrawal symptoms. I also recommend that she keep her [employer] identification card with our clinic contact information at all times. [facility] can be reached for emergencies and after hours by calling the [facility] at . PATIENT AND CARE PROVIDER EDUCATION You can learn more about spasticity and ITB therapy at the following website: [email or web address].com If you have a smart phone then we recommend you download the free pump partner application as well. It is a resource for ITB education and tracking your personalized therapy. SYNCHROMED II ITB SYSTEM The intrathecal baclofen pump system is the way our treatment team gives baclofen directly into thespinal fluid. The system consists of a catheter (a small, flexible tube) and a pump. The pump -- a round metal disc, about one inch thick and three inches in diameter -- is surgically placed under the skin of the abdomen near the waistline. The pump stores and releases prescribed amounts of medicine through the cathete directly to the spinal fluid. With a programmable pump, a tiny motor moves themedication from the pump reservoir through the catheter. Using an external it programmer analyst, your treatment team can make adjustments in the dose, rate, and timing of the medication. Continuously delivers baclofen in small doses directly to the spinal fluid, increasing the therapeutic benefits and causing fewer and less severe side effects than the oral medication. Patients with a pump must return to their doctor's office for pump refills and medication adjustments, typically every 1-3 months. ITB SYSTEM MAINTENANCE AND REPAIR The catheter may kink, break or dislodge in up to 10% of cases and would require a surgery to revise it. The Synchromed II pump requires replacement for end of battery life within 7 years. This will require a surgery. The catheter is not required to be replaced, just the pump. INTRATHECAL BACLOFEN WITHDRAWAL Signs and symptoms of baclofen withdrawal often include diffuse body itching, increased stiffness and fever. I have reminded her to take 20mg of oral baclofen and contact our office if she has these symptoms. she may need to be seen in the emergency department. The baclofen withdrawal syndrome can progress to include confusion, sedation and even coma. In severe cases baclofen withdrawal can lead to kidney damage, seizures and possibly . A lumbar puncture with an injection of 50mcg intrathecal baclofen in the emergency department is often the best treatment to address severe balcofen withdrawal symptoms. INTRATHECAL BACLOFEN OVERDOSE Signs and symptoms of baclofen overdose often include sedation and confusion and most commonly occur recently following an ITB refill/program adjustment. I recommend Claudine Joseph contactour office prompts if these symptoms occur. The baclofen overdose syndrome can progress to include coma, seizures, respiratory and cardiac depression and possibly . I have reminded her to contact our office and go to the emergency room if she experiences these symptoms. A high volume lumbar puncture (removing 40cc of both CSF and intrathecal baclofen) in the emergency department is often thebest treatment for severe baclofen overdose symptoms. ITB SYSTEM INFECTION Infection of the pump system can lead to meningitis (severe brain infection) and can be possibly fatal. Signs and symptoms of pump infection can include redness, swelling, or pain around the pump or surgical scar on the back. Fever and a stiff neck are also common. I recommend that Claudine Joseph go to the Emergency Department if she has any of signs/symptoms of pump infection. MRI SCANNING Synchromed II ITB pumps are MRI compatible including 3T strength scanners. The pump stops pumping temporarily when the patient is moved near the MRI machine. The pump automatically restarts once the patient moves away from the MRI machine. We follow a clinic best practice of interrogating the pump following MRI scans to ensure the ITB pump has restarted. This can often be arranged to be done by [employer] if scheduled during business hours. We recommend AGAINST any MRI scans scheduled outside of business hours. EDUCATION: HOT TUBs, STEAM ROOMS, SAUNAS AND TANNING BED We recommend patients avoid these, especially if over 102 degrees. Heating up your body causes the ITB pump to potential increase its flow rate, which could cause overdose/. EDUCATION: SCUBA DIVING We recommend that an ITB patient avoid depths below 33 feet (10 meters). Diving lower than this could permanently damage the pump. Also as you descend and the pressure around your body increases, pump flow can decrease. This could lead to baclofen withdrawal/. EDUCATION REGARDING DAYLIGHT SAVINGS TIME The clock inside the pump does not adjust for daylight savings time changes (spring forward and fall backwards). If you are on flex dosing or bolus dosing programming then your dosing will becomeshifted an hour, which may cause problems for the patient. The pump clock only corrects for daylight savings time after being interrogated by a it programmer analyst. The flex/bolus dosing patient should schedule a visit after a time change to reset their pump clocks. I spent 30 minutes face to face with the patient today. Over half the time was spent counseling regarding her spasticity as well as it's underlying medical condition, as well as her coordinating care.Thank you very much for allowing me to participate in this patient's care and please do not hesitate to contact me with questions or concerns. Sincerely, Ruma Godwin MS, BSN, ACNP-BC, CNRN Acute Care Nurse Practitioner [facility] [address] [place] [address], [address] [place] [address] Office [phone] documented in this [id number] History of Present illness Narrative* Stephy Cisse MD - 11/26/2023 3:08 PM EDT Assessment/Plan: Diagnoses and all orders for this visit: Restrictive lung disease due to scoliosis Chronic pulmonary aspiration, sequela 33 y.o. female with CP and daily seizures presents for evaluation. Our last appointment was more than 3 years ago in June 2020. She has well established, daily chronic aspiration (when seizing) and severe scoliosis which has likely caused restriction. On exam, Claudine, remains non verbal. She is clear on exam. O2 saturation on room air at rest is 86%. On O2 at 2 L oxygen nasal cannula she is 98%. Her most recent CXR is from 2021 and this shows her chronic scoliosis and some atelectasia related to this. It does not appear new/ worse/ changed compared to previous films. Claudine is in need of updated O2 orders. I asked Peg to call or message later with the name of her DME so we can send to the orders and note to the correct company. Clinical decision making was based on my interview with Peg, review of outside records, and personal view/ interpretation of available chest images History Claudine Joseph is a 33 y.o. female with CP who has aspiration (frequent seizures, CP), chronic respiratory failure, and restrictive lung disease. She is not able to communicate. Her motherPeg speaks for her. As you know, Claudine has CP who has had chronic daily seizures. Peg reports Claudine is doing well now but was recently on antibiotics for aspiration pneumonia. Claudine continues to have daily seizures. She will aspirate often during the seizures. Peg has the O2 and nebulizer on hand and will use these. Claudine has a bedside alarm that will go off when her O2 saturations drop below 86%. Peg reports this can happen if the oxygen falls off Claudine. She hashad a recent sore on her right buttock which has only just healed. No bloody secretions. No sudden unexpected changed in bowel habits. Current Outpatient Medications: acetaminophen (TYLENOL) 325 MG tablet, 2 (two) tablets (650 mg total) by G-tube route every 6 (six)hours as needed for pain ., Disp: , Rfl: acetic acid 0.25 % irrigation, 120 mL daily Flush for bladder ., Disp: , Rfl: baclofen 40,000 mcg/20mL (2,000 mcg/mL) Soln, Simple continuous infusion ITB at daily dose of 651 mcg/day. ., Disp: 40 mL, Rfl: 6 cannabidioL (Epidiolex) 100 mg/mL Soln, 3.5 mL (350 mg total) by G-tube route 2 (two) times a day ., Disp: 220 mL, Rfl: 3 cholecalciferol, vitamin D3, 50 mcg (2,000 unit) cap, 1 (one) capsule by G-tube route every morning., Disp: , Rfl: diazePAM (VALIUM) 2 MG tablet, 3 (three) tablets (6 mg total) by Per G Tube route daily as needed For seizures ., Disp: 30 tablet, Rfl: 0 diazePAM (Valtoco) 15 mg/2 spray (7.5/0.1mL x 2) Novi, 7.5 mg by Each Nare route as needed (for seizure or seizure cluster. Can repeat in 4 hours if needed.) ., Disp: 8 each, Rfl: 2 doxycycline monohydrate (ADOXA) 100 MG tablet, Take 1 (one) tablet (100 mg total) by mouth daily .,Disp: , Rfl: fluconazole (DIFLUCAN) 150 MG tablet, by Per G Tube route When taking antibiotics ., Disp: , Rfl: fluticasone propionate (FLONASE) 50 mcg/actuation nasal spray, Instill 1 (one) spray into each nostril daily as needed for rhinitis ., Disp: 16 g, Rfl: 11 guaifenesin (MUCINEX ORAL), Take by mouth 2 (two) times a day as needed Children's powder ., Disp: , Rfl: guaiFENesin (ROBITUSSIN) 100 mg/5 mL syrup, 10 mL (200 mg total) by G-tube route 3 (three) times a day as needed for cough ., Disp: , Rfl: lamoTRIgine (LAMICTAL) 100 MG tablet, Take 1 (one) tablet (100 mg total) by mouth 2 (two) times a day With 150 mg to equal 250 mg twice a day. ., Disp: 60 tablet, Rfl: 1 lamoTRIgine (LAMICTAL) 150 MG tablet, Take 1 (one) tablet (150 mg total) by mouth 2 (two) times a day With 100 mg to equal 250 mg twice a day. ., Disp: 60 tablet, Rfl: 1 levETIRAcetam (KEPPRA) 100 mg/mL solution, 17.5 mL (1,750 mg total) by Per G Tube route 2 (two) times a day ., Disp: 930 mL, Rfl: 6 loratadine (CLARITIN) 10 mg tablet, 1 (one) tablet (10 mg total) by G-tube route every morning ., Disp: , Rfl: medroxyPROGESTERone (DEPO-PROVERA) 150 mg/mL Syrg, INJECT 1ML INTRAMUSCULARLY EVERY 10 TO 13 WEEKS,Disp: , Rfl: montelukast (SINGULAIR) 10 mg tablet, 1 (one) tablet (10 mg total) by Per G Tube route daily ., Disp: , Rfl: multivitamin/iron/folic acid (CENTRUM ORAL), 10 mL by G-tube route every morning ., Disp: , Rfl: omeprazole (PRILOSEC) 40 MG capsule, 1 (one) capsule (40 mg total) by G-tube route every morning .,Disp: , Rfl: pedi multivit 200-B. coagulans (Just 4 Kidz Multivit-Probiotic) 1.25 mg Chew, Chew and Swallow daily ., Disp: , Rfl: polyethylene glycol (MIRALAX) 17 gram powder, 17 (seventeen) g by Per G Tube route every morning .,Disp: , Rfl: predniSONE 5 mg/5 mL solution, PRN ., Disp: , Rfl: promethazine (PHENERGAN) 12.5 MG suppository, Insert 1 (one) suppository (12.5 mg total) into the rectum every 6 (six) hours as needed for nausea ., Disp: , Rfl: ipratropium (ATROVENT) 0.02 % nebulizer solution, inhale contents of 1 vial in nebulizer twice a day IF CONGESTED OR WHEEZING OR LABORED CAN TAKE UP TO FOUR TIMES DAILY . (Patient not taking: Reported on 11/26/2023 .), Disp: 300 mL, Rfl: 11 Allergies as of 11/26/2023 - Reviewed 11/26/2023 Allergen Reaction Noted Levaquin [levofloxacin] 04/26/2017 Augmentin [amoxicillin-pot clavulanate] Rash 05/14/2016 Lactose intolerance [lactase] 02/24/2017 Penicillins Other (See Comments) 10/07/2018 Ragweed Unknown 05/14/2016 Immunization History Administered Date(s) Administered DTaP, Unspecified 1990, 1990, 02/16/1991, 01/25/1992, 09/22/1995 Hepatitis B 09/08/2000, 11/24/2000 HiB 1990, 1990, 02/16/1991, 01/25/1992 INFLUENZA IIV4 6MO OR > FLUARIX/FLUZONE/AFLURIA 09104 08/01/2016, 11/24/2016, 09/27/2019 IPV 07/02/2003 Influenza Whole 05/31/2004 Influenza, Injectable, Quadrivalent, Preservative Free 08/01/2016, 11/24/2016 Influenza, Seasonal, Injectable 07/13/2001, 07/02/2003 Influenza, Unspecified 06/24/2008, 06/02/2017 MMR 01/25/1992, 11/24/2000, 03/31/2003 Pneumococcal Polysaccharide (Pneumovax 23) 08/10/2008 Polio, Unspecified 1990, 1990, 01/25/1992 Varicella (Varivax) 04/21/1999 Past Medical History: Diagnosis Date Acute respiratory failure (HCC) Due to MRSA pneumonia 04/2016; Allergic rhinitis Anoxic brain damage ([facility]) Aspiration, chronic pulmonary Bowel and bladder incontinence Cerebral palsy ([facility]) Chronic kidney disease Chronic osteomyelitis of pelvic region, right ([facility]) 2019 required right ischial debridement, followed by Dr. Noland of plastics Chronic respiratory failure with hypoxia ([facility]) 3 L NC, followed by Dr. Stephy Cisse and Dr. Amalia Terry Constipation COVID-19 06/2020 Epilepsy ([facility]) followed at [facility] neurology clinic GERD (gastroesophageal reflux disease) occasional vomiting with gagging MRSA (methicillin resistant Staphylococcus aureus) 04/2016 Bilateral lungs Muscle spasticity medically refractory and has baclofen pump since 1999, followed at [facility] neuro baclofen pump clinic Nonverbal Answers yes with very long blinks per adoptive parent PEG (percutaneous endoscopic gastrostomy) status ([facility]) Presence of intrathecal baclofen pump [address] 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 Urine retention occasional occurrence that requires straight cath periodically Wheelchair bound Past Surgical History: Procedure Laterality Date BACK SURGERY 1999 Marrufo rods placed BACLOFEN PUMP IMPLANTATION X 3- last 2009 CHOLECYSTECTOMY INCISION AND DRAINAGE LOWER EXTREMITY Right 12/02/2018 Procedure: INCISION AND DRAINAGE WITH BONE BIOPSY OF RIGHT ISCHIUM; Surgeon: Rad Luque MD; Location: [facility] Main OR; Service: Orthopedic INSERTION PERCUTANEOUS ENDOSCOPIC GASTROSTOMY TUBE INTRATHECAL PUMP REMOVAL Bilateral 07/15/2022 Procedure: REMOVAL OF RIGHT INTRATHECAL PUMP, CATHETER WITH REPLACEMENT ON LEFT SIDE; Surgeon: Jose Portillo MD; Location: [facility] NEURO OR; Service: Neurological LAMINECTOMY DECOMP THORACIC MULTI LEVEL N/A 07/27/2016 Procedure: T1-2 THORACIC FUSION REVISION ; Surgeon: Kb Ramsey MD; Location: [facility] Main OR; Service: REVISION PAIN PUMP N/A 07/27/2016 Procedure: BACLOFEN PUMP REPLACEMENT ; Surgeon: Kb Ramsey MD; Location: [facility] Main OR; Service: SALIVARY GLAND SURGERY Family History Adopted: Yes Family history unknown: Yes Social History Social History Narrative Not on file Vitals: 11/26/23 1502 BP: 104/65 BP Location: Right arm Patient Position: Sitting BP Cuff Size: Adult Pulse: (!) 106 Temp: 98 F (36.7 C) SpO2: 98% Weight: 34 kg (75 lb) Height: 4' 4 EXAM: Gerneral: sleeping, NAD. Non verbal. Examined in wheelchair. Eyes: clear conjunctiva CVS: Slightly tachy, no edema Pulm: Peg helped lean her forward so I could auscultate her lungs. She has significant scoliosis and as a result chest wall and air movement are diminished and not symmetrical. Clear. Not labored. 86% on RA at rest. 98% on 2 L oxygen nasal canula. Abdomen: active BS, soft, NT. She has feeding tube MS: Significant scolioss documented in this [id number] History of Present illness Narrative* Celena Fields MD - 11/10/2023 3:00 PM EDT [facility] Toxin Procedure Injection Note 11/10/23 Chief Complaint: botox injections for spasticity History of Present Illness: Ms. Claudine Joseph is a 32 year old female with history of cerebral palsy, epilepsy and severe spasticity with intrathecal baclofen pump who presents to spasticity clinic today for fourth lifetime botox injections for spasticity. At baseline, Claudine is wheelchair bound and makes 10-12 vocal sounds that her mother can recognize. She is accompanied by her mother, Peg today. First botox injections were given on for upper extremity spasticity and she was most recentlygiven injections on 06/01/23. At her last visit, we added the right finger flexors and kept doses unchanged in bilateral pectoralis, elbow flexors, triceps, right flexor carpi ulnaris and bilateral opponens pollicis. Interval history: Mom reports that Claudine was recently diagnosed with aspiration pneumonia and got out of the hospital on Wednesday night. She was meant to go home with IV antibiotics. However, the home health company could not get to their home in time so she was started on a liquid antibiotic. Claudine has a PCP appointment tomorrow because she was only given three days of antibiotics and needs to continue therapy. Claudine's arms have stiffened up as her botox has worn off in the last couple of weeks. When she had the maximum effect of botox they were able to open her fingers up better to clean the right hand and her arms were more flexible. In fact, Claudine is able to better move them on her own with botox. Mom is very happy with the regimen done last visit. The only area that could use improvement is the flexibility of the proximal arms per Mom. She states that Claudine is nervous about the appointment today and that she was pocked and prodded a lot during her recent hospitalization. She was also on heparin during her hospitalization. Peg mentions that Claudine likes the hot tub and thinks the heat is helpful for her spasticity. Physical examination: PYRAMIDAL: Modified Estefani Score Left Right Upper extremity Arm adduction (pectoralis) 3 3 Elbow flexion (biceps, brachialis, brachioradialis) 3 3 Elbow extension (triceps) 3 1 Pronation (pronator teres, pronator quadratus) 2 2 Wrist flexion (FCR, FCU) 4 1 (ulnar deviation) MCP flexion (lumbricals) 0 0 PIP flexion (FDS) 1 2 DIP flexion (FDP) 1 2 Thumb opposition (opponens pollicis) 2 2 Thumb flexion (FPL) 0 2 Lower extremity Hip adduction (adductor longus, adductor brevis) 0 0 Knee extension (quadriceps) 0 0 Knee flexion (hamstrings) 0 0 Plantarflexion (gastroc, soleus, tibialis posterior) 0 0 Foot inversion (tibialis posterior,FHL, FDL) 0 0 Toe flexion digits 2-5 (FDL,FDB) 0 0 Great toe flexion (FHL) 0 0 GAIT: non-ambulatory Procedure: BOTULINUM TOXIN PROCEDURE INJECTION NOTE: Risks, side effects and benefits were reviewed. Consent was obtained from the patient. Onabotulinum toxin A was mixed in standard fashion: 6 100-unit vials are used. 1 mL of preservativefree saline is introduced into each vial. The resulting solution contains 100 units/mL. I used a 26gauge injectable needle for accurate placement of botulinum toxin into the muscles. A 30 gauge needle was used for injection of the opponens pollicis for comfort. All areas to be injected were cleaned with alcohol swabs, and the injectable needle is aspirated prior to each deposition of botulinum toxin. EMG guidance was used. Muscles Injected (R/L): left and right upper extremities Muscle Left Prior Units (06/01/23) Left Current Units (11/10/23) Right Prior Units (06/01/23) Right Current Units (11/10/23) Upper Extremity Pectoralis Major 50 75 50 75 Brachialis 75 75 75 75 Brachioradialis Biceps brachii 50 50 50 50 Triceps 50 25 25 25 Pronator teres Pronator quadratus Flexor carpi radialis (FCR) Flexor carpi ulnaris (FCU) 25 25 Lumbricals Flexor digitorum superficialis (FDS) 25 25 Flexor digitorum profundus (FDP) 25 25 Flexor pollicis longus (FPL) Flexor pollicis brevis (FPB) Opponens pollicis 50 50 50 50 Adductor pollicis Lower Extremity Adductor longus Adductor brevis Rectus femoris Vastus Intermedius Vastus Lateralis Vastus Medialis Biceps femoris long head Semitendinosus Semimembranosus Gastrocnemius - lateral and medial heads Soleus Tibialis posterior Flexor hallucis longus Flexor digitorum longus Flexor digitorum brevis Total 625 Assessment and Plan: Claudine Joseph is a 32 year old female with history of cerebral palsy, epilepsy and severe spasticity with intrathecal baclofen pump who presents to spasticity clinic today for repeat botox injections. She has been getting botox injections in the bilateral upper extremities for spasiticy secondaryto cerebral palsy. Claudine has had excellent response to botox injections thus far. Mom reports that the one area that could use improvement is the bilateral pectoralis for shoulder flexibility. For this reason, we added sample botox today to increase the doses of bilateral pectoralis muscles. We discussed that Claudine's spasticity today is likely a result of botox wearing off and her current illn ess. 1. Follow up in 90 days for repeat botulinum toxin injections. 2. Following your injections today, it will take up to 14 days to notice the full benefit. 3. Please call with any questions or concerns. We recommend practicing good spasticity hygiene: - Stretch upon waking, partway through the day, and before bed every day - Stay adequately hydrated - Treat constipation, urinary retention, bladder infections - Check dependant areas of the body every day for redness / skin breakdown - Exercise! Movement is camejo. Try yoga, magan chi, or water aerobics. - Stop to stretch during long periods of sitting (long car ride, business meeting) - Don't get too cool. Cold often worsens spasticity. Celena Fields MD Neuroimmunology & Multiple Sclerosis [facility] documented in this [id number] History of Present illness Narrative* Thea Reyes MA - 09/20/2023 2:23 PM EST I have scanned the fax confirmation into the chart from fax sent to [facility]. documented in this [id number] Instructions* Patient Instructions* Yany Wright CNP - 09/13/2023 11:05 AM EST Call or MyChart with questions, concerns or any seizure activity. I sent prescriptions for Epidiolex, Lamictal, Valtaco, and Keppra to your pharmacy. I would recommend Increasing Keppra to 1250 mg twice a day (12.5 ml). If continues to have seizures, increase to 1500 mg twice a day (15 ml). If seizures continue, call or MyChart the office. documented in this [id number] History of Present illness Narrative* Yany Wright CNP - 09/13/2023 10:59 AM EST NEUROLOGY Office Visit [facility] [address] [place] [address], [address] [place] [address] (office) / [phone] (fax) Patient Name: Claudine Joseph : 1990 MR #: [id number] Date of Neurology Follow-up: 09/13/23 Name of Provider: JONNATHAN Gomez CNP Other Physicians: Marielle Duque MD (Primary Care Physician) Chief Complaint: Follow-up for Seizures (Pt here for follow up. Pt health policy nurse reports seizures everymorning and the seizures seems to be increasing in intensity. Needs refills. ) 33 y.o. female with CP in setting of Anoxic Brain Injury with history of Spasticity, MRSA, ARF, Kidney Stones and Seizures, follows with Dr. Richar Talbert, last follow-up in May 2021. Here with mom and caregiver reporting seizures every morning and reports seizures had increased in intensity. Reports they need refills. Interval History: Reports having increase seizure intensity with daily seizures that are occurring in the mornings Reports when heart rate goes up and oxygen drops will give Valtoco, Reports giving 2-3 times a week. Reports last used Wednesday morning. Denies any new medical issues. Reports has PICC line for coccyx wound needing antibiotic. Reports wound is almost closed. Reports still has Que-camejo. Reports using probiotic for BM. Denies any other new medical issues. Mom reports still taking care of several children on tube feedings. Reports baclofen pump and following with [facility] for spasticity. Reports has several nurses caring for Claudine at home. Seizure Types: -Little ones occurs every other day reports she will stare with tonic activity will verbalize like a laugh, head to the left with tonic-clonic activity. -Large Ones reports not anything like they were as above. Current Anti-convulsants(Prior to any changes today): Epidiolex 3.5 ml bid (with her weight of 75 pounds she is greater than 20 mg/kg/day); Lamictal 250 mg BID, Keppra 1000 BID Liquid (did not tolerate titration to 1500 mg bid with reports of somnolence but mom does not recall). Valium 2-6 mg as needed. Valtoco 2-3 times a week use for seizure rescue Adverse Events: Denies Prior Anti-convulsants: Tegretol, Lamictal, Keppra, phenobarbital, topiramate, Epidiolex, Valium History Recap: Claudine was adopted at age 10. 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 Febrile seizures Unknown. Prior workup: MRI- was completed but report was not available today EEG- From [facility] 1999 Álvaro, Generalized, Maximum bifrontal, 2001 Intermittent Rhythmic Slow, Generalized and regional Left Occipital EEG 2016- mild to moderate diffuse encephalopathy that is nonspecific. EMU- None PET- None SPECT- None Neuropsych eval- None Past Medical History: Patient Active Problem List Diagnosis Difficulty walking Acute on chronic respiratory failure with hypoxia and hypercapnia ([facility]) Abdominal distention 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[facility]) Congenital deformity of spine Dysphagia Gastroesophageal reflux disease with esophagitis S/P percutaneous endoscopic gastrostomy (PEG) tube placement ([facility]) Intractable symptomatic generalized epilepsy ([facility]) Muscle spasticity 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[facility]) Torticollis Pneumonia due to infectious organism Spasticity Febrile illness, acute Encephalopathy Hypoxia Restrictive lung disease due to kyphoscoliosis Aspiration, chronic pulmonary Tachycardia Generalized edema Sepsis ([facility]) Sacral decubitus ulcer 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 acetic acid 0.25 % irrigation 120 mL daily Flush for bladder . baclofen 40,000 mcg/20mL (2,000 mcg/mL) Soln Simple continuous infusion ITB at daily dose of 651 mcg/day. . 40 mL 6 cholecalciferol, vitamin D3, 50 mcg (2,000 unit) cap 1 (one) capsule by G-tube route every morning . diazePAM (VALIUM) 2 MG tablet 3 (three) tablets (6 mg total) by Per G Tube route daily as needed For seizures . 30 tablet 0 doxycycline monohydrate (ADOXA) 100 MG tablet Take 1 (one) tablet (100 mg total) by mouth daily . fluconazole (DIFLUCAN) 150 MG tablet by Per G Tube route When taking antibiotics . fluticasone propionate (FLONASE) 50 mcg/actuation nasal spray Instill 1 (one) spray into each nostril daily as needed for rhinitis . 16 g 11 guaifenesin (MUCINEX ORAL) Take by mouth 2 (two) times a day as needed Children's powder . guaiFENesin (ROBITUSSIN) 100 mg/5 mL syrup 10 mL (200 mg total) by G-tube route 3 (three) times a day as needed for cough . ipratropium (ATROVENT) 0.02 % nebulizer solution inhale contents of 1 vial in nebulizer twice a dayIF CONGESTED OR WHEEZING OR LABORED CAN TAKE UP TO FOUR TIMES DAILY . (Patient taking differently: inhale contents of 1 vial in nebulizer twice a day IF CONGESTED OR WHEEZING OR LABORED CAN TAKE UP TO FOUR TIMES DAILY PRN .) 300 mL 11 loratadine (CLARITIN) 10 mg tablet 1 (one) tablet (10 mg total) by G-tube route every morning . medroxyPROGESTERone (DEPO-PROVERA) 150 mg/mL Syrg INJECT 1ML INTRAMUSCULARLY EVERY 10 TO 13 WEEKS montelukast (SINGULAIR) 10 mg tablet 1 (one) tablet (10 mg total) by Per G Tube route daily . multivitamin/iron/folic acid (CENTRUM ORAL) 10 mL by G-tube route every morning . omeprazole (PRILOSEC) 40 MG capsule 1 (one) capsule (40 mg total) by G-tube route every morning . pedi multivit 200-B. coagulans (Just 4 Kidz Multivit-Probiotic) 1.25 mg Chew Chew and Swallow daily. polyethylene glycol (MIRALAX) 17 gram powder 17 (seventeen) g by Per G Tube route every morning . predniSONE 5 mg/5 mL solution PRN . promethazine (PHENERGAN) 12.5 MG suppository Insert 1 (one) suppository (12.5 mg total) into the rectum every 6 (six) hours as needed for nausea . cannabidioL (Epidiolex) 100 mg/mL Soln 3.5 mL (350 mg total) by G-tube route 2 (two) times a day . 220 mL 3 diazePAM (Valtoco) 15 mg/2 spray (7.5/0.1mL x 2) Novi 7.5 mg by Each Nare route as needed (for seizure or seizure cluster. Can repeat in 4 hours if needed.) . 8 each 2 lamoTRIgine (LAMICTAL) 100 MG tablet Take 1 (one) tablet (100 mg total) by mouth 2 (two) times a day With 150 mg to equal 250 mg twice a day. . 60 tablet 1 lamoTRIgine (LAMICTAL) 150 MG tablet Take 1 (one) tablet (150 mg total) by mouth 2 (two) times a day With 100 mg to equal 250 mg twice a day. . 60 tablet 1 levETIRAcetam (KEPPRA) 100 mg/mL solution 12.5 mL (1,250 mg total) by Per G Tube route 2 (two) times a day If any seizures, increase to 15 ml (1500 mg total) twice a day through G tube. . 930 mL 6 No current facility-administered medications for this visit. Physical Examination: Vitals: 09/13/23 1057 Resp: 16 Height: 4' 6 Eyes are clear. Oral mucosa is moist. Extremities are without deformity. No notable skin rash. Neurological Examination: Not alert, nonverbal, noted that she was moaning and appeared to be more restless. Had eyes open during office visit. Cranial Nerves II-XII limited secondary to profound MRDD, EOM moves spontaneous dysconjuate gaze, no notable facial weakness, with horizontal nystagmus BUE and BLE contractures with increased tone, noted spontaneous movement of upper extremities, no movement of BLEs Wheelchair bound Additional Diagnostic data reviewed: Past medical records. Assessment and Plan: This is a 33 y.o. female with: 1. 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 Intractable symptomatic generalized epilepsy (HCC) lamoTRIgine (LAMICTAL) 150 MG tablet diazePAM (Valtoco) 15 mg/2 spray (7.5/0.1mL x 2) Novi 3. 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HCC) 4. Hypoxia 1. Intractable symptomatic generalized epilepsy - Intractable seizures despite multiple AEDs with mom reporting daily seizures and noted increase in intensity. - Reports she is having seizures that have increased every day. Suspect that her increased seizure pattern may be secondary to her Que-camejo site possibly being infected and not functioning correctly. - Continued Epidiolex to 3.5 mL twice a day which equals around 20 mg/kg/day. Provided prescription. - Continue Lamictal at 250 mg bid for now. Provided prescription. - Increase Keppra 1250 mg bid for 1 week, if continues to have seizure, increase Keppra to 1500 mg twice a day. If continues to have seizures or does not tolerate higher dose of Keppra. Will consideronfi 5 mg at night for a week, if able to tolerate incrrease to 10 mg at night. No onfi film as no salivary glands in mouth. Use suspension or pill to crush. Provided prescription. - Continued Valium 6 mg daily as needed for seizure rescue. - Mom reports using Valtco 2-3 times a week and not using as much oral Valium. Provided prescription. - Checked [facility] and noted that they are filling the prescriptions for Valtco and started filling Valium in February 2023. - Labs to consider at next office visit: CBC, CMP, Lamictal, Keppra and Onfi level if taking Onfi. - Discussed VNS as alternative option in past and mom deferred. - Does not drive. - Discussed with mom to call or MyChart with questions, concerns or any worsening seizure activity. - Follow up in [address] Talbert. 2. Spastic cerebral palsy - Static Encephalopathy. - Baclofen pump. - [facility]. 3. Hypoxia - She was started on O2 and bipap for acute hypercapnia. - Follows with [facility]. Thanks once again for involving our practice in [facility]'s care. As always, it is a pleasure to participate in the care of your patients, and we remain available to any of your patients who would benefit from timely neurological evaluation. Sincerely, Yany Wright, CADE, DIRECTOR OF GLOBAL SALES, [employer] Epilepsy Clinic and Epilepsy Monitoring Unit Nurse Practitioner [facility] documented in this [id number] Telephone encounter Note* Telephone Encounter - Madisyn Marquez CNP - 08/26/2023 5:04 PM EST Prescription for baclofen for pump refill faxed to [facility], , Called to confirm they received the order. They have the order. [id number] Miscellaneous Notes* Telephone Encounter - Madisyn Marquez CNP - 08/26/2023 5:04 PM EST Prescription for baclofen for pump refill faxed to [facility], , Called to confirm they received the order. They have the order. * Addendum Note - Madisyn Marquez CNP - 08/26/2023 4:24 PM ESTAddended by: WERNER MARQUEZ on: 08/26/2023 04:24 PM Modules accepted: Orders documented in this [id number] Note* Addendum Note - Madisyn Marquez CNP - 08/26/2023 4:24 PM ESTAddended by: WERNER MARQUEZ on: 08/26/2023 04:24 PM Modules accepted: Orders [id number] Note* Addendum Note - Madisyn Marquez CNP - 08/26/2023 4:24 PM ESTAddended by: WERNER MARQUEZ on: 08/26/2023 04:24 PM Modules accepted: Orders [id number] Telephone encounter Note* Telephone Encounter - Adrienne Anderson CMA - 08/20/2023 3:44 PM EST Pt has not been seen in this office since 2020. Please advise. [id number] Miscellaneous Notes* Telephone Encounter - Adrienne Anderson CMA - 08/20/2023 3:44 PM EST Pt has not been seen in this office since 2020. Please advise. documented in this [id number] History of Present illness Narrative* Celena Fields MD - 06/01/2023 1:01 PM EDT [facility] Toxin Procedure Injection Note 06/01/23 Chief Complaint: botox injections for spasticity History of Present Illness: Ms. Claudine Joseph is a 32 year old female with history of cerebral palsy, epilepsy and severe spasticity with intrathecal baclofen pump who presents to spasticity clinic today for third lifetime botox injections for spasticity. At baseline, Claudine is wheelchair bound and makes 10-12 vocal soundsthat her mother can recognize. First botox injections were given on for upper extremity spasticity and was most recently seen for second injections on 02/02/23. At her last visit, Claudine's mother was pleased overall with the results from botox. She noted increased movements and flexibility of the arms and noted wearing off effects one week prior to injections. The thumbs continued to be bothersome. Doses were increased ofthe bilateral pectoralis major, brachialis and botox was switched from the flexor pollicis longus to the opponens pollicis. Wrist flexion on the left was eliminated due to contracture. Interval history: Claudine was referred to movement disorders spasticity clinic at our last visit for consideration ofbotox for cervical dystonia. She saw Dr. Mejia on 04/21/23 who plans for botox injections on follow up. Peg noted significant improvements after Claudine's last injections. In particular she noticed that her chest was more flexibile and she was better able to both dress Claudine and put her deodorant on. She also noticed improved ability to stretch the arms at the elbows and improved flexibility of the thumbs. At the maximum effect, Peg did not notice any particular areas that needed improvement. Peg had to move Claudine's botox injection appointment back by a few weeks due to lack of child care associate for her other two kids. She really noticed the wearing off effects in the last few weeks as a result. The spasticity has returned at the chest, elbows and thumbs. Peg has also noticed clenching of the right fingers that makes it difficult to clean Claudine's hand. Physical examination: PYRAMIDAL: Modified Estefani Score Left Right Upper extremity Arm adduction (pectoralis) 3 3 Elbow flexion (biceps, brachialis, brachioradialis) 3 3 Elbow extension (triceps) 3 1 Pronation (pronator teres, pronator quadratus) 2 2 Wrist flexion (FCR, FCU) 4 1 (ulnar deviation) MCP flexion (lumbricals) 0 0 PIP flexion (FDS) 1 2 DIP flexion (FDP) 1 2 Thumb opposition (opponens pollicis) 2 2 Thumb flexion (FPL) 0 2 Lower extremity Hip adduction (adductor longus, adductor brevis) 0 0 Knee extension (quadriceps) 0 0 Knee flexion (hamstrings) 0 0 Plantarflexion (gastroc, soleus, tibialis posterior) 0 0 Foot inversion (tibialis posterior,FHL, FDL) 0 0 Toe flexion digits 2-5 (FDL,FDB) 0 0 Great toe flexion (FHL) 0 0 GAIT: non-ambulatory Procedure: BOTULINUM TOXIN PROCEDURE INJECTION NOTE: Risks, side effects and benefits were reviewed. Consent was obtained from the patient. Onabotulinum toxin A was mixed in standard fashion: 6 100-unit vials are used. 1 mL of preservativefree saline is introduced into each vial. The resulting solution contains 100 units/mL. I used a 26gauge injectable needle for accurate placement of botulinum toxin into the muscles. A 30 gauge needle was used for injection of the opponens pollicis bilaterally for comfort. All areas to be injectedwere cleaned with alcohol swabs, and the injectable needle is aspirated prior to each deposition ofbotulinum toxin. EMG guidance was used. Botulinum toxin used today has a lot number of [id number] with expiration date . Muscles Injected (R/L): left and right upper extremities Muscle Left Prior Units (02/02/23) Left Current Units (06/01/23) Right Prior Units (02/02/23) Right Current Units (06/01/23) Upper Extremity Pectoralis Major 50 50 50 50 Brachialis 75 75 75 75 Brachioradialis Biceps brachii 50 50 50 50 Triceps 50 50 25 25 Pronator teres Pronator quadratus Flexor carpi radialis (FCR) Flexor carpi ulnaris (FCU) 25 25 Lumbricals Flexor digitorum superficialis (FDS) 25 Flexor digitorum profundus (FDP) 25 Flexor pollicis longus (FPL) Flexor pollicis brevis (FPB) Opponens pollicis 50 50 50 50 Adductor pollicis Lower Extremity Adductor longus Adductor brevis Rectus femoris Vastus Intermedius Vastus Lateralis Vastus Medialis Biceps femoris long head Semitendinosus Semimembranosus Gastrocnemius - lateral and medial heads Soleus Tibialis posterior Flexor hallucis longus Flexor digitorum longus Flexor digitorum brevis Total 600 Assessment and Plan: Claudine has had excellent response to botox injections thus far. Today she is 17 weeks out from last injections and has had wearing off effects for a few weeks now. Today, we made minor adjustments in her plan by adding botox to the right finger flexors (FDS and FDP) due to clenching of fist preventing mom from easily cleaning her hand. Doses of other muscles were kept the same. 1. Follow up in 90 days for repeat botox injections. I will be on leave at this time and Claudine will be scheduled with one of my spasticity colleagues for a one time visit. 2. Following your injections today, it will take up to 14 days to notice the full benefit. 3. Please call with any questions or concerns. We recommend practicing good spasticity hygiene: - Stretch upon waking, partway through the day, and before bed every day - Stay adequately hydrated - Treat constipation, urinary retention, bladder infections - Check dependant areas of the body every day for redness / skin breakdown - Exercise! Movement is camejo. Try yoga, magan chi, or water aerobics. - Stop to stretch during long periods of sitting (long car ride, business meeting) - Don't get too cool. Cold often worsens spasticity. Celena Fields MD Neuroimmunology & Multiple Sclerosis [facility] documented in this [id number] History of Present illness Narrative* Sunita Mejia MD - 04/21/2023 10:23 AM EDT Subjective Patient ID: Claudine Joseph is a 33 y.o. female. She was referred for cervical dystonia by Dr Fields She gives botox from Dr Fields Baseline motor cerebral palsy, per family cognition intact and answers yes/no questions with blinking Her head has been going to the right for as long time No swallowing, she has a PEG Family has trouble cleaning under the left side of neck due to the posturing Per mother is able to move head to baseline but not to the right The following portions of the patient's history were reviewed and updated as appropriate: allergies, current medications, past family history, past medical history, past social history, past surgicalhistory, and problem list. Review of Systems Gastrointestinal: Positive for constipation. Endocrine: Positive for polyuria. Musculoskeletal: Positive for gait problem. Neurological: Positive for seizures, speech difficulty and weakness. Psychiatric/Behavioral: Positive for sleep disturbance. All other systems reviewed and are negative. Family History Adopted: Yes Family history unknown: Yes Social History Socioeconomic History Marital status: Single Tobacco Use Smoking status: Never Smokeless tobacco: Never Vaping Use Vaping Use: Never used Substance and Sexual Activity Alcohol use: No Drug use: No Objective Physical Exam Neurological: Mental Status: She is alert. Motor: Abnormal muscle tone present. No tremor. Comments: Non Verbal Wheelchair bound Head is extended upward and to the right Hypertrophied SCM, splenius cap and trap on the right PACU Vitals 04/21/23 1011 BP: 96/68 Pulse: 99 Assessment/Plan: 33yo F with cervical dystonia. She has successfully benefited from botox to improve her hand dystonia, will arrange for botox for cervical dystonia. RTC next scheduled appt. Diagnoses and all orders for this visit: Cervical dystonia - Ambulatory Referral to Spasticity Other orders - botulinum toxin Type A (BOTOX) injection 0-100 Units There are no Patient Instructions on file for this visit. Dr. Sunita Mejia MD Neurology Office Information Shahram Garcia MA Office# Sunita Mejia MD documented in this [id number] History of Present illness Narrative* Celena Fields MD - 02/02/2023 1:30 PM EDT [facility] Toxin Procedure Injection Note 02/02/23 Chief Complaint: Botox for spasticity History of Present Illness: Ms. Claudine Joseph is a 32 year old female with history of cerebral palsy, epilepsy and severe spasticity with intrathecal baclofen pump who presents to spasticity clinic today for second botox injections. At baseline, Claudine is wheelchair bound and makes 10-12 vocal sounds that her mother can recognize. Ms. Claudine Joseph was most recently seen in our clinic on 12/01/22 after her first botox injectionson 11/03/22. Claudine has had good response to intrathecal baclofen for lower extremity spasticity, but continued to have upper extremity spasticity. After her first injections, Katlin had good reponsewith increased flecibility of the left and right upper extremities and mom noted improved movementsof the upper extremities. We determined that there was room for improvement in the thumbs. She was also referred to movement spasticity clinic for cervical dystonia. Interval history: Mom is very pleased overall with the botox for Claudine. She is happy to see the inreased movement and flexibility of the arms. Mom can tell that the botox has started to wear off in the last week. Since the botox has worn off she has had less movement in the right fingers. She reports that the thumbs are still a big issue and that the tightness of the chest and elbows has returned. Home health is coming tomorrow to refill Claudine's baclofen pump. Physical examination: Mental status: awake and alert. Speech: groans intermittently. No recognizable speech. PYRAMIDAL: Strength: Unable to follow commands to formally test strength. Spontaneous antigravity movements noted in bilateral upper extremities. No spontaneous movements noted in lower extremities. Modified Estefani Score LUE: - Arm adduction (pectoralis): 3 - Elbow flexion (biceps, brachialis, brachioradialis): 3 - Elbow extension (triceps): 3 - Pronation (Pronator teres): 2 - Wrist flexion (FCR, FCU): 4 - MCP flexion (lumbricals): 0 - PIP flexion (FDS): 1 - DIP flexion (FDP): 1 - Thumb opposition (opponens pollicis): 3 RUE: - Arm adduction (pectoralis): 3 - Elbow flexion (biceps, brachialis, brachioradialis): 3 - Elbow extension (triceps): 1 - Pronation (Pronator teres): 2 - Wrist flexion (FCR, FCU): 1 (ulnar deviation) - MCP flexion (lumbricals): 0 - PIP flexion (FDS): 1 - DIP flexion (FDP): 1 - Thumb opposition (opponens pollicis): 3 Lower extremities: decreased tone (0) throughout GAIT: non-ambulatory Procedure: BOTULINUM TOXIN PROCEDURE INJECTION NOTE: Risks, side effects and benefits were reviewed. Consent was obtained from the patient. Onabotulinum toxin A was mixed in standard fashion: 6 100-unit vials are used. 1 mL of preservativefree saline is introduced into each vial. The resulting solution contains 100 units/mL. I used a 26gauge injectable needle for accurate placement of botulinum toxin into the muscles. 30 gauge needlewas used for the bilateral opponens pollicis for comfort. All areas to be injected were cleaned with alcohol swabs, and the injectable needle is aspirated prior to each deposition of botulinum toxin.EMG guidance was used. Muscles Injected (R/L): left and right upper extremities Muscle Left Units Right Units Upper Extremity Pectoralis Major X 50 X 50 Brachialis X 75 X 75 Brachioradialis Biceps brachii X 50 X 50 Triceps X 50 X 25 Pronator teres Pronator quadratus Flexor carpi radialis (FCR) - Flexor carpi ulnaris (FCU) - X 25 Lumbricals Flexor digitorum superficialis (FDS) Flexor digitorum profundus (FDP) Flexor pollicis longus (FPL) - - Flexor pollicis brevis (FPB) Opponens pollicis X 50 X 50 Adductor pollicis Lower Extremity Adductor longus Adductor brevis Rectus femoris Vastus Intermedius Vastus Lateralis Vastus Medialis Biceps femoris long head Semitendinosus Semimembranosus Gastrocnemius - lateral and medial heads Soleus Tibialis posterior Flexor hallucis longus Flexor digitorum longus Flexor digitorum brevis Total units: 550 Assessment and Plan: 1. Follow up in 90 days for repeat botulinum toxin injections. 2. Following your injections today, it will take up to 14 days to notice the full benefit. 3. Please call with any questions or concerns. 4. Home health occupational therapy referral to [facility]. Currently gets home health through [facility]. We recommend practicing good spasticity hygiene: - Stretch upon waking, partway through the day, and before bed every day - Stay adequately hydrated - Treat constipation, urinary retention, bladder infections - Check dependant areas of the body every day for redness / skin breakdown - Exercise! Movement is camejo. Try yoga, magan chi, or water aerobics. - Stop to stretch during long periods of sitting (long car ride, business meeting) - Don't get too cool. Cold often worsens spasticity. Celena Fields MD Neuroimmunology & Multiple Sclerosis [facility] documented in this [id number] Telephone encounter Note* Telephone Encounter - Chacorta Ansari MA - 12/10/2022 1:57 PM EDT Pts mom called to get a refill. Requested Prescriptions Pending Prescriptions Disp Refills lamoTRIgine (LAMICTAL) 100 MG tablet 60 tablet 11 Sig: take 1 tablet PER G TUBE twice a day . lamoTRIgine (LAMICTAL) 150 MG tablet 60 tablet 11 Sig: take 1 tablet PER G TUBE twice a day . [id number] - [id number] [phone] [id number] Miscellaneous Notes* Telephone Encounter - Chacorta Ansari MA - 12/10/2022 1:57 PM EDT Pts mom called to get a refill. Requested Prescriptions Pending Prescriptions Disp Refills lamoTRIgine (LAMICTAL) 100 MG tablet 60 tablet 11 Sig: take 1 tablet PER G TUBE twice a day . lamoTRIgine (LAMICTAL) 150 MG tablet 60 tablet 11 Sig: take 1 tablet PER G TUBE twice a day . [id number] - [address] [phone] documented in this [id number] History of Present illness Narrative* Celena Fields MD - 12/01/2022 1:30 PM EDT Images from the original note were not included. [facility] Follow Up Note 12/01/2022 Chief Complaint Botox follow up History Claudine Joseph is a 32 year old female with severe spasticity secondary to cerebral palsy who was most recently seen in our clinic on 11/03/22. At that time, she had first botox injections in the left and right upper extremities. At baseline, Claudine is wheelchair bound and makes 10-12 vocal sounds that her mother can recognize. Katlin had great response to botox and mom is very happy with the results. Mom noticed after a fewdays that Claudine's arms were more flexible and that Claudine had more spontaneous movements of her upper extremities. Speficially noticed improvements in Claudine's extension of the fingers, extensionof elbows and the ability to abduct the arms. There is still room for improvement in the thumbs. She was referred to movement spasticity clinic for cervical dystonia at our last visit and Mom did not recall getting an appointment scheduled though we see an appointment with Dr. Mejia was made in March. Home health occupational therapy referral was placed. Mom did not get a call to schedule this. She has home health in place, but has not gotten OT. General Physical Examination Vital Signs: Blood pressure 110/76, pulse (!) 120, height 4' 6, weight 34 kg (75 lb). General Appearance: 32 year old female sitting in wheelchair. Intermittent distress with vocalizations. Eyes: anicteric sclerae and moist conjunctivae HENT: dry mucous membranes. Lungs: no increased work of breathing on room air. Extremities: no clubbing or cyanosis noted Skin: no ecchymoses, no petechiae noted Pysch: rarely makes eye contact. Appears anxious. Neurological Examination PYRAMIDAL: Decreased bulk throughout. Increased tone throughout upper extremities detailed below. Decreased tone throughout bilateral lower extremities. Manual Muscle Testing: Unable to follow commands to formally test strength. Spontaneous antigravity movements noted in bilateral upper extremities. No spontaneous movements noted in lower extremities. Modified Estefani Score: Left upper extremity: - Left pectoralis: 2 - Left elbow flexion: 3 - Left elbow extension: 2 - Left pronation: 2 - Left wrist flexion: 4 - Left MCPs: 0 - Left PIPs: 1 - Left DIPs: 2 - Left thumb adduction: 3 Right upper extremity: - Right pectoralis: 2 - Right elbow flexion: 3 - Right elbow extension: 2 - Right pronation: 2 - Right wrist flexion: 1 (ulnar deviation) - Right MCPs: 0 - Right PIPs: 1 - Right DIPs: 2 - Right thumb adduction: 3 Neck is deviated laterally to the left and slightly flexed with resistance to movement into a neutral position. Neuroimaging and Laboratory Studies Serum Laboratories: Lab Results Component Value Date WBC 9.59 07/17/2022 HGB 9.7 (L) 07/17/2022 HCT 30.3 (L) 07/17/2022 MCV 94.7 07/17/2022 EXTMCV 89.0 04/22/2017 PLT 193 07/17/2022 RBC 3.20 (L) 07/17/2022 Lab Results Component Value Date GLUCOSE 139 (H) 07/19/2022 CALCIUM 9.7 07/15/2022 NA 140 07/19/2022 K 3.9 07/19/2022 CL 102 07/19/2022 BUN 10 07/19/2022 CREATININE 0.34 (L) 07/19/2022 Impression and Plan Claudine Joseph is a 32 y.o. female with history of cerebral palsy, epilepsy and severe spasticity with intrathecal baclofen pump who presents to spasticity clinic today for follow up afterfirst lifetime botox injections in bilateral upper extremities for severe spasticity. At baseline, Claudine is wheelchair bound and makes 10-12 vocal sounds that her mother can recognize. Claudine was first given botox injections in the left upper and right upper extremities on 11/03/22. Based on history and examination today, Claudine has had excellent response to botox and we will continue treatments. At next visit we will plan for the following: Left upper extremity - Pectoralis major increase dose from: 25U-> 50U - Brachialis increase dose from: 50 U -> 75U - Triceps unchanged: 50 U - Flexor carpi radialis: 75U-> eliminate as this was not helpful and examination is consistent with contracture - Flexor carpi ulnaris: 75U-> eliminate as this was not helpful and examination is consistent with contracture - Flexor pollicis longus: 25U-> eliminate and transition to opponens pollicis - Opponens pollicis add: 50U Right upper extremity: - Pectoralis major increase dose from: 25U-> 50U - Brachialis increase dose from: 50U -> 75U - Triceps unchanged: 50U - Flexor carpi ulnaris unchanged: 25U - Flexor pollicis longus: 25U-> eliminate and transition to opponens pollicis - Opponens pollicis add: 50U Total: 475U At follow up we may add additional 25U to one of the above muscle groups or consider adding biceps brachii in the future. Clinic Follow Up Plan 1. Return to clinic on 02/02/23 as scheduled for repeat botox injections. 2. Please arrive 30 minutes before your appointment to allow time to complete paperwork and specific testing prior to seeing your neurology specialist. If you arrive late you will be asked to reschedule your visit. 3. Please sign up for the [facility] patient portal. [employer] provides assess to your medical record and test results, allows you to communicate with your care providers, and allows you to complete patient questionnaires prior to each clinic visit. 4. Many of your testing results can be reviewed online through [employer]. Resources Support and Wellness Opportunities: Support groups, art therapy, music therapy, yoga and more can be found at: [facility] [email or web address] [address] Call [phone] or email [email or web address] I personally spent at least 50 minutes on this clinical encounter today. This time includes time reviewing the chart, reviewing labs and/or imaging, seeing the patient, counseling the patient and/or family, coordinating care, placing orders and writing the note. Thank you very much for allowing me to participate in this patient's care and please do not hesitate to contact me with questions or concerns. Sincerely, Celena Fields MD Multiple Sclerosis and Neuroimmunology [facility] [address] [place] [address] Clinic: documented in this [id number] History of Present illness Narrative* Celena Fields MD - 11/03/2022 11:00 AM EST [facility] Toxin Procedure Injection Note 11/03/22 Chief Complaint: Spasticity History of Present Illness: Ms. Claudine Joseph is a 32 year old female with history of cerebral palsy, epilepsy and severe spasticity with intrathecal baclofen pump who presents to spasticity clinic today for first botox injections for spasticity. At baseline, Claudine is wheelchair bound and makes 10-12 vocal sounds that hermother can recognize. Claudine's legs have had good response to intrathecal baclofen, but continued to have upper extremity spasticity. Therefore she presented to botox clinic on 10/13/22 and her mother was agreeable to beginning botox therapy. She returns today for first injections. Claudine is about to start antibiotics for her sacral wound. Mom denies any change in her upper extremities since our last visit. Mom tries to stretch her everyday at home. Not currently involved in therapy. They were told that Claudine did not qualify for anyoccupational therapy after she was in school and mom gave up trying. She is certainly interested ingetting therapy started if possible. Physical examination: PYRAMIDAL: Decreased bulk throughout. Increased tone throughout upper extremities detailed below. Mostly low tone in bilateral lower extremities. Manual Muscle Testing: Unable to follow commands to formally test strength. Spontaneous antigravity movements noted in bilateral upper extremities. No spontaneous movements noted in lower extremities. Modified Estefani Score: Left upper extremity: - Left pectoralis: 2 - Left elbow flexion: 3 - Left elbow extension: 3 - Left pronation: 2 - Left wrist flexion: 3-4 - Left MCPs: 0 - Left PIPs: 1 - Left DIPs: 2 - Left thumb adduction: 3 Right upper extremity: - Right pectoralis: 2 - Right elbow flexion: 3 - Right elbow extension: 3 - Right pronation: 2 - Right wrist flexion: 1 (ulnar deviation) - Right MCPs: 0 - Right PIPs: 1 - Right DIPs: 2 - Right thumb adduction: 3 Neck is deviated laterally to the left and slightly flexed with resistance to movement into a neutral position. Procedure: BOTULINUM TOXIN PROCEDURE INJECTION NOTE: Risks, side effects and benefits were reviewed. Consent was obtained from the patient. Onabotulinum toxin A was mixed in standard fashion: 5 100-unit vials are used. 1 mL of preservativefree saline is introduced into each vial. The resulting solution contains 100 units/mL. I used a 26gauge injectable needle for accurate placement of botulinum toxin into the muscles. All areas to beinjected were cleaned with alcohol swabs, and the injectable needle is aspirated prior to each deposition of botulinum toxin. Botulinum toxin used today has a lot number of [id number] with expiration date . Muscles Injected (R/L): left and right upper extremities. Muscle Left Units Right Units Upper Extremity Pectoralis Major X 25 X 25 Brachialis X 50 X 50 Brachioradialis Biceps brachii Triceps X 50 X 50 Pronator teres Pronator quadratus Flexor carpi radialis (FCR) X 75 Flexor carpi ulnaris (FCU) X 75 X 25 Lumbricals Flexor digitorum superficialis (FDS) Flexor digitorum profundus (FDP) Flexor pollicis longus (FPL) X 25 X 25 Flexor pollicis brevis (FPB) Opponens pollicis Adductor pollicis Lower Extremity Adductor longus Adductor brevis Rectus femoris Vastus Intermedius Vastus Lateralis Vastus Medialis Biceps femoris long head Semitendinosus Semimembranosus Gastrocnemius - lateral and medial heads Soleus Tibialis posterior Flexor hallucis longus Flexor digitorum longus Flexor digitorum brevis Total units: 500 Assessment and Plan: 1. Follow up in 4 weeks for evaluation post botox. Follow up in 12 weeks for repeat botulinum toxininjections. 2. Following your injections today, it will take up to 14 days to notice the full benefit. 3. Please call with any questions or concerns. We recommend practicing good spasticity hygiene: - Stretch upon waking, partway through the day, and before bed every day - Stay adequately hydrated - Treat constipation, urinary retention, bladder infections - Check dependant areas of the body every day for redness / skin breakdown - Stop to stretch during long periods of sitting (long car ride, business meeting) - Don't get too cool. Cold often worsens spasticity. - Baclofen pump is being refilled by home service. Plan to return to spasticity clinic for baclofenpump follow up in August 2023. - Referral to spasticity clinic for cervical dystonia was placed on 10/13/22. -Home health OT referral placed Celena Fields MD Neuroimmunology & Multiple Sclerosis [facility] documented in this [id number] History of Present illness Narrative* Celena Fields MD - 10/13/2022 10:30 AM EST Images from the original note were not included. SPASTICITY NEW PATIENT CONSULTATION [facility] MULTIPLE SCLEROSIS [place] 10/13/2022 Claudine Joseph is a 32 y.o. year old female who [facility] new evaluation for evaluation and management recommendations for severe spasticity. History Chief complaint: Severe Spasticity History of Present Illness: Ms. Claudine Joseph is a 32 year old female with history of cerebral palsy, epilepsy and severe spasticity requiring intrathecal baclofen therapy. She presents to spasticity clinic today for evaluation of botox injections for spasticity. She is accompanied by her adoptive mother today who proivides history. At baseline, Claudine is wheelchair bound and has tube feeds. At baseline, she is alert and knows what is going on around her. She is able to answer questions through eye blink and can answer yes/no questions through facial expressions and body language that mom understands. She makes 10-12 different vocal sounds that her mom can recognize. Ms. Joseph most recently saw us in spasticity clinic on 09/22/[address] Estuardo Moncada. At that time,there were no issues with her intrathecal baclofen pump. Referral was made to evaluate for botox therapy to increase range of motion of the upper extremities to aid with cleaning and dressing. Examination was notable for significant spasticity with bilateral elbow flexion and extension. Mom reports that Ronns legs and feet are wonderful since the baclofen pump.However, her arms have not had as good of a response. Mom notices that her arms remain flexed at the elbows. Mom noticesthat her shoulders are tight (arm abduction), wrists are flexed and fingers and thumb are flexed into her palm. It can be difficult to get her dressed. Also can be difficult to keep her underarms clean and her palms clean. Mom helps Claudine to stretch regularly. Mom also notes that Claudine's head is always deviated to the left side and is tight with resistanceto movement. If Claudine is positioned on her left side her head will become buried in the pillow. Claudine currently has an open wound on her buttocks and is uncomfortable sitting for today's appointment. Prior Antispasmodic Therapies: - Intrathecal baclofen - Diazepam spray as needed for seizures - Cannabidiol for seizures Other History NeuroQOL PROMS: No flowsheet data found. Multiple Sclerosis Center [facility] - 10/13/22 1039 General Change in weight No Fever No Chills No Night Sweats No Cough Yes Shortness of Breath No Joint pain / swelling No Muscle pain / cramps No Chest pain No Palpitations No Nausea / Vomiting No Neurologic Double vision No Blurred / decreased vision No Difficulty swallowing Yes Difficulty with speech Yes Numbness / tingling No Painful skin sensations No Muscle weakness Yes Heat sensitivity Yes Motor fatigue No Incoordination/ poor balance No Difficulty walking Yes Recent Falls No L'hermitte No Difficulty with thinking and memory No Pathologic fatigue No Depression No Anxiety No Urinary urgency No Urinary frequency No Urinary retention / hesitancy No Recent Urinary Tract Infections No Bowel complaints No Sexual Dysfunction No Poor sleep No Headaches No Recent Seizures Yes She has a past medical history of Acute respiratory failure ([facility]), Allergic rhinitis, Anoxic brain damage ([facility]), Aspiration, chronic pulmonary, Bowel and bladder incontinence, Cerebral palsy ([facility]), Chronic kidney disease, Chronic osteomyelitis of pelvic region, right ([facility]) (2018), Chronic respiratory failure with hypoxia ([facility]), Constipation, COVID-19 (06/2020), Epilepsy ([facility]), GERD (gastroesophageal reflux disease), MRSA (methicillin resistant Staphylococcus aureus) (04/2016), Muscle spasticity, Nonverbal, PEG (percutaneous endoscopic gastrostomy) status ([facility]), Presence of intrathecal baclofen pump (1999), Restrictive lung disease due to kyphoscoliosis, Urine retention, and Wheelchair bound. - Recurrent pnemonia She has a past surgical history that includes Peg Tube Insertion; Baclofen pump implantation; Salivary gland surgery; Back surgery (1999); Cholecystectomy; Pain Pump Revision (N/A, 07/27/2016); Laminectomy Decomp Thoracic Multi Level (N/A, 07/27/2016); Incision And Drainage Lower Extremity (Right, 12/02/2018); and Intrathecal Pump Removal (Bilateral, 07/15/2022). She reports that she has never smoked. She has never used smokeless tobacco. She reports that she does not drink alcohol and does not use drugs. Social History Social History Narrative Not on file She She was adopted. Family history is unknown by patient. Allergies Allergen Reactions Levaquin [Levofloxacin] Rash, flushing with RUE arm swelling. Augmentin [Amoxicillin-Pot Clavulanate] Rash Per mother- tolerates Zosyn, unable to tolerate amoxil (blisters upper extremity) Lactose Intolerance [Lactase] Penicillins Other (See Comments) Blisters- amoxil Ragweed Unknown She has a current medication list which includes the following prescription(s): acetaminophen, acetic acid, alteplase, baclofen, epidiolex, cholecalciferol (vitamin d3), diazepam, valtoco, fluconazole, fluticasone propionate, guaifenesin, guaifenesin, lamotrigine, lamotrigine, levetiracetam, loratadine, medroxyprogesterone, montelukast, multivitamin/iron/folic acid, omeprazole, ondansetron, just 4 kidz multivit-probiotic, polyethylene glycol, prednisone, promethazine, sulfamethoxazole-trimethoprim, heparin, porcine (pf), ipratropium, and sodium chloride (pf). Physical Examination Vital Signs: Blood pressure 112/77, pulse (!) 123. General Appearance: sitting up in wheelchair with head deviated to the left. Appears generally uncomfortable at times. Eyes: anicteric sclerae and moist conjunctivae HENT: head atraumatic, normocephalic. Lungs: Normal respiratory effort. No intercostal retractions. No dyspnea during conversation. Shallow breaths. Extremities: no clubbing or cyanosis noted Skin: warm, dry, no rash Pysch: Makes intermittent eye contact. Does not otherwise attempt to interact. Neurologic Exam MENTAL STATUS: Eyes are open and she is awake. Does not follow simple commands. No attempts to verbalize. CRANIAL NERVES: CN II: pupils are equal and reactive to light CN III, IV, : left eye deviation CN V, VII: no facial droop at rest PYRAMIDAL: Decreased bulk throughout. Increased tone throughout upper extremities detailed below. Mostly low tone in bilateral lower extremities. Manual Muscle Testing: Unable to follow commands to formally test strength. Spontaneous antigravity movements noted in bilateral upper extremities. No spontaneous movements noted in lower extremities. Modified Estefani Score: Left upper extremity: - Left pectoralis: 2 - Left elbow flexion: 3 - Left elbow extension: 3 - Left pronation: 2 - Left wrist flexion: 3 - Left MCPs: 0 - Left PIPs: 1 - Left DIPs: 2 - Left thumb adduction: 3 Right upper extremity: - Right pectoralis: 2+ - Right elbow flexion: 3 - Right elbow extension: 3 - Right pronation: 2 - Right wrist flexion: 1 (ulnar deviation) - Right MCPs: 0 - Right PIPs: 1 - Right DIPs: 2 - Right thumb adduction: 3 Neck is deviated laterally to the left and slightly flexed with resistance to movement into a neutral position. Deep Tendon Reflexes: Bicep BR Patellar Ankle Right 3 3 1 1 Left 3 3 1 1 Labs and Imaging I have independently reviewed the following images. CT head (10/07/18): The visualized intraorbital contents are normal. There is no obvious intra or extraaxial hemorrhage. 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 No acute infarct, hemorrhage, mass, mass effect or midline shift. The ventricles are slightly prominent. The visualized paranasal sinuses, mastoidair cells are normal except for opacification of bilateral sphenoid air cells. The calvarium appears intact. IMPRESSION: 1. No definite acute infarct, hemorrhage or acute intracranial process. 2. 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 Serum Laboratories: Lab Results Component Value Date WBC 9.59 07/17/2022 HGB 9.7 (L) 07/17/2022 HCT 30.3 (L) 07/17/2022 MCV 94.7 07/17/2022 EXTMCV 89.0 04/22/2017 PLT 193 07/17/2022 RBC 3.20 (L) 07/17/2022 Lab Results Component Value Date GLUCOSE 139 (H) 07/19/2022 CALCIUM 9.7 07/15/2022 NA 140 07/19/2022 K 3.9 07/19/2022 CL 102 07/19/2022 BUN 10 07/19/2022 CREATININE 0.34 (L) 07/19/2022 Impression and Plan Claudine Joseph is a 32 y.o. handed female with severe spasticity secondary to Cerebral Palsy. I deem her spasticity to be severe given it's negative impact on her quality of life. I deem her spasticity medically refractory given her lack of adequate response to oral therapies in combination with intrathecal baclofen pump . We discussed spasticity, which can manifest as limbs that are hard to bend as well as painful spasms and cramps. We discussed how spasticity is commonly worsened by inactivity and cold temperatures. We discussed how spasticity be very mild to very severe and differs between patients. I am suggesting that she may benefit from botulinum toxin therapy for spasticity. We discussed potential risks and benefits of toxin injection for spasticity. - The most frequently reported adverse reactions following injection of BOTOX for upper limb spasticity include pain in extremity, muscular weakness, fatigue, nausea, and bronchitis. We discussed realistic goals for botulinum toxin therapy. For Claudine Joseph this would include: spasticity related pains, loosen the arms, improve personal hygiene, help prevent contractures and bed sores, improve caregiver ease of care After discussing risks and benefits, Claudine Joseph was interested in beginning a trial of injections. We will plan for the following injections in the left upper extremity and right upper extremity. Muscle Left Units Right Units Upper Extremity Pectoralis Major X 25 X 50 Brachialis X 50 X 50 Brachioradialis Biceps brachii Triceps X 50 X 50 Pronator teres Pronator quadratus Flexor carpi radialis (FCR) X 75 Flexor carpi ulnaris (FCU) X 75 X 25 Lumbricals Flexor digitorum superficialis (FDS) Flexor digitorum profundus (FDP) X 25 X 25 Flexor pollicis longus (FPL) Flexor pollicis brevis (FPB) Opponens pollicis Adductor pollicis Total: 550 units Plan: - Follow up in 3-4 weeks for first botulinum toxin injections. - Following your injections, it will take up to 14 days to notice the full benefit. - Please call with any questions or concerns. - Will refer to spasticity clinic for cervical dystonia as well. We recommend practicing good spasticity hygiene: - Stretch upon waking, partway through the day, and before bed every day - Stay adequately hydrated - Treat constipation, urinary retention, bladder infections - Check dependant areas of the body every day for redness / skin breakdown - Exercise! Movement is camejo. Try yoga, magan chi, or water aerobics. - Stop to stretch during long periods of sitting (long car ride, business meeting) - Don't get too cool. Cold often worsens spasticity. We also recommend physical and/or occupational therapy as toxin injections work best when used in conjunction with therapy. I spent 75 minutes face to face with the patient today. This time includes reviewing notes, laboratory results and imaging, seeing the patient and documentation. Celena Fields MD Multiple Sclerosis and Neuroimmunology [facility] [address] [place] [address] [place] [address] Clinic: documented in this [id number] History of Present illness Narrative* Augusto Moncada MD - 09/22/2022 1:14 PM EST [facility]: Intrathecal Baclofen Therapy Progress Note 09/22/2022 CHIEF COMPLAINT Spasticity follow up from 08/21/21 IMPRESSIONS AT LAST VISIT / INTERM HISTORY Medically refractory, severe spasticity secondary to Spasticity Etiology: CP managed with intrathecal baclofen therapy. Based on today s history, physical examination and review of ITB telemetry, Ifeel her severe spasticity is under adequate control. CONTEMOPORARY HISTORY Her mother reports that the pump is a far better position. She reports that pump is doing fine. She is doing. Overall she / her farm or ranch animal caretaker reports that her spasticity is under good control. Concerns discussed included spasticity. SELF REPORT SPASTICITY AND PAIN RATINGS 09/22/2022 For each condition mentioned below, which number best matches your current severity (0 = least; 10 = worst). SPASTICITY:(0 = least spasticity; 10= worst spasticity): 1 PAIN:(0 = least spasticity; 10= worst spasticity): 1 PATIENT GLOBAL IMPRESSION OF CHANGE, 09/22/2022 1. Since beginning treatment at this clinic, how would you describe the change (if any) in ACTIVITYLIMITATIONS, SYMPTOMS, EMOTIONS and OVERALL QUALITY OF LIFE, related to your painful condition? 1. No change (or condition has gotten worse) 2. In a similar way, please state which number below matches your degree of change since beginning at this clinic: (0 = much better; 5 = no change; 10 = much worse): 1 OTHER RELEVANT HISTORY MS Composite No documentation. Multiple Sclerosis Center [facility] - 09/22/22 1311 General Change in weight No Fever No Chills No Night Sweats No Cough No Shortness of Breath No Joint pain / swelling No Muscle pain / cramps No Chest pain No Palpitations No Nausea / Vomiting No Neurologic Double vision No Blurred / decreased vision No Difficulty swallowing Yes Difficulty with speech Yes Numbness / tingling No Painful skin sensations Yes Muscle weakness No Heat sensitivity Yes Motor fatigue No Incoordination/ poor balance No Difficulty walking No Recent Falls No L'hermitte No Difficulty with thinking and memory No Pathologic fatigue No Depression No Anxiety No Urinary urgency No Urinary frequency No Urinary retention / hesitancy No Recent Urinary Tract Infections No Bowel complaints No Sexual Dysfunction No Poor sleep Yes Headaches No Recent Seizures Yes She has a past medical history of Acute respiratory failure ([facility]), Allergic rhinitis, Anoxic brain damage ([facility]), Aspiration, chronic pulmonary, Bowel and bladder incontinence, Cerebral palsy ([facility]), Chronic kidney disease, Chronic osteomyelitis of pelvic region, right ([facility]) (2018), Chronic respiratory failure with hypoxia ([facility]), Constipation, COVID-19 (06/2020), Epilepsy ([facility]), GERD (gastroesophageal reflux disease), MRSA (methicillin resistant Staphylococcus aureus) (04/2016), Muscle spasticity, Nonverbal, PEG (percutaneous endoscopic gastrostomy) status ([facility]), Presence of intrathecal baclofen pump (1999), Restrictive lung disease due to kyphoscoliosis, Urine retention, and Wheelchair bound. She has a past surgical history that includes Peg Tube Insertion; Baclofen pump implantation; Salivary gland surgery; Back surgery (1999); Cholecystectomy; Pain Pump Revision (N/A, 07/27/2016); Laminectomy Decomp Thoracic Multi Level (N/A, 07/27/2016); Incision And Drainage Lower Extremity (Right, 12/02/2018); and Intrathecal Pump Removal (Bilateral, 07/15/2022). She reports that she has never smoked. She has never used smokeless tobacco. She reports that she does not drink alcohol and does not use drugs. Social History Social History Narrative Not on file She She was adopted. Family history is unknown by patient. Allergies Allergen Reactions Levaquin [Levofloxacin] Rash, flushing with RUE arm swelling. Augmentin [Amoxicillin-Pot Clavulanate] Rash Per mother- tolerates Zosyn, unable to tolerate amoxil (blisters upper extremity) Lactose Intolerance [Lactase] Penicillins Other (See Comments) Blisters- amoxil Ragweed Unknown She has a current medication list which includes the following prescription(s): acetaminophen, acetic acid, alteplase, baclofen, epidiolex, cholecalciferol (vitamin d3), diazepam, valtoco, fluconazole, fluticasone propionate, guaifenesin, ipratropium, lamotrigine, lamotrigine, levetiracetam, loratadine, medroxyprogesterone, montelukast, multivitamin/iron/folic acid, omeprazole, ondansetron, polyethylene glycol, promethazine, heparin, porcine (pf), and sodium chloride (pf). PHYSICAL EXAMINATION Vital Signs: Blood pressure 106/71, pulse (!) 112. General Appearance: in no apparent distress, well nourished, cooperative Eyes: Anicteric sclerae. Moist conjunctivae. No lid edema noted. HENT: Head atraumatic, normocephalic. Oropharynx clear. Moist mucous membranes. Neck/ Thyroid:trachea midline. Supple. No massess. No thyromegaly. Lungs: Normal respiratory effort. No intercostal retractions. No dyspnea during conversation. Abdomen: soft, non-distended Extremities: no clubbing, cyanosis, pedal edema, ulcer nor wound noted. Skin: warm, dry, no rash, no ecchymoses, no petechiae noted Pysch: Non-verbal at baseline. It is not combantant NEUROLOGICAL EXAMINATION Visual Acuity OD: OS: Mental Status is Non-verbal at baseline . 90 second Symbol Digit Modality Test: Nine Hole Peg Test: Right 1st: Right 2nd: Left 1st: Left 2nd: Manual Muscle Testing: Can not cooperate with the exam. She has some antigravity movements of the upper extemity D B T WE FF IO HF KF KE DF PF Right 2 2 1 0 0 0 0 0 0 0 0 Left 2 2 1 0 0 0 0 0 0 0 0 Modified Estefani Score: EE EF Hip add KE KF DF PF Right 3 3 -0 0 0 0 0 Left 3 3 0 0 0 0 0 [place] ITB TELEMETRY and OTHER DATA I have independently reviewed the ITB pump system telemetry. ASSESSMENT The patient is a 32 y.o. female with a past medical history of cerebral palsy with spasticity controlled with an intrathecal baclofen pump who is presenting to the clinic after a pump replacement dueto infection. Spasticity In regards to the patient's spasticity, this is fairly well controlled in her lower extremities secondary to pump. We will maintain this dose as it is. The patient does have significant issues with her upper extremities. At this point, I feel that it would be worthwhile to evaluate the patient for Botox therapy. I think she could benefit from improvements in her range of motion which would aid with cleaning and dressing the patient. I will make a referral to my colleague Dr. Fields in order to evaluate for Botox. Follow-up From a intrathecal baclofen pump standpoint, we will maintain her dose as it is, we will follow herup in 1 year. We will defer refilling the pump to her home service. Medically refractory, severe spasticity secondary to Spasticity Etiology: Cereberal palsy managed with intrathecal baclofen therapy. Based on today s history, physical examination and review of ITB telemetry, I feel her severe spasticity is under adequate control. Current ITB goals include: decrease cramps and spasms, spasticity related pains Other associated diagnoses / active problems for this visit include: spasticity INTRATHECAL BACLOFEN SYSTEM INFORMATION FOR Claudine Joseph Severe Spasticity due to: Cereberal palsy Implanted: 07/15/[address] Bridgette RENE date: February 2029 (<79 months) Synchromed I IPump Size: 40 mL [place]ard Location: 1:30 Catheter Tip Placement: PLAN REGARDING INTRATHECAL BACLOFEN THERAPY First Medication Brand: Baclofen Concentration: 2000 mcg/mL Total Daily Dose: 651 mcg/day 1. Pump Programming: Simple Continuous 2. Pump Esto Refill: Not required today 3. Programming Adjustments today: none today 4. ITB system Procedures today: pump computer interrogation 5. Last reservoir refill date: 07/15/23 6. Pump Low Esto Alarm Date: 10/23/22 7. Claudine Joseph and/or her caregivers have verbal consents to all of the ITB system adjustments and procedures performed today PLAN REGARDING ADJUNCTIVE SPASTICITY THERAPIES 1. Noxious stimulation worsens spasticity. This included when the weather is cold outside, urinary tract infections and other infections, pressure sores, poor seating or sleeping ergonomics, constipation and urinary retention. she is encouraged to report any of these symptoms. 2. We recommend practicing good spasticity hygiene: A. Stretch upon waking, partway through the day, and before bed every day B. Stay adequately hydrated C. Treat constipation, urinary retention, bladder infections D. Check dependant areas of the body every day for redness / skin breakdown E. Exercise! Movement is camejo. Try yoga, magan chi, or water aerobics. D. Stop to stretch during long periods of sitting (long car ride, business meeting) F. Don't get too cool. Cold often worsens spasticity. PLAN REGARDING FOLLOW UP We will schedule follow up a week before her alarm date, which is 10/22/23. I strongly recommend that she keep an up-to-date emergency bottle of oral baclofen with her at all times to take for withdrawal symptoms. I also recommend that she keep her [employer] identification card with our clinic contact information at all times. Dr. Marte and Dr. Ngo can be reached for emergencies and after hours by calling the [facility] at PATIENT AND CARE PROVIDER EDUCATION You can learn more about spasticity and ITB therapy at the following website: [email or web address] If you have a smart phone then we recommend you download the free pump partner application as well. It is a resource for ITB education and tracking your personalized therapy. SYNCHROMED II ITB SYSTEM The intrathecal baclofen pump system is the way our treatment team gives baclofen directly into thespinal fluid. The system consists of a catheter (a small, flexible tube) and a pump. The pump -- a round metal disc, about one inch thick and three inches in diameter -- is surgically placed under the skin of the abdomen near the waistline. The pump stores and releases prescribed amounts of medicine through the cathete directly to the spinal fluid. With a programmable pump, a tiny motor moves themedication from the pump reservoir through the catheter. Using an external it programmer analyst, your treatment team can make adjustments in the dose, rate, and timing of the medication. Continuously delivers baclofen in small doses directly to the spinal fluid, increasing the therapeutic benefits and causing fewer and less severe side effects than the oral medication. Patients with a pump must return to their doctor's office for pump refills and medication adjustments, typically every 1-3 months. ITB SYSTEM MAINTENANCE AND REPAIR The catheter may kink, break or dislodge in up to 10% of cases and would require a surgery to revise it. The Synchromed II pump requires replacement for end of battery life within 7 years. This will require a surgery. The catheter is not required to be replaced, just the pump. INTRATHECAL BACLOFEN WITHDRAWAL Signs and symptoms of baclofen withdrawal often include diffuse body itching, increased stiffness and fever. I have reminded her to take 20mg of oral baclofen and contact our office if she has these symptoms. she may need to be seen in the emergency department. The baclofen withdrawal syndrome can progress to include confusion, sedation and even coma. In severe cases baclofen withdrawal can lead to kidney damage, seizures and possibly . A lumbar puncture with an injection of 50mcg intrathecal baclofen in the emergency department is often the best treatment to address severe balcofen withdrawal symptoms. INTRATHECAL BACLOFEN OVERDOSE Signs and symptoms of baclofen overdose often include sedation and confusion and most commonly occur recently following an ITB refill/program adjustment. I recommend Claudine Joseph contactour office prompts if these symptoms occur. The baclofen overdose syndrome can progress to include coma, seizures, respiratory and cardiac depression and possibly . I have reminded her to contact our office and go to the emergency room if she experiences these symptoms. A high volume lumbar puncture (removing 40cc of both CSF and intrathecal baclofen) in the emergency department is often thebest treatment for severe baclofen overdose symptoms. ITB SYSTEM INFECTION Infection of the pump system can lead to meningitis (severe brain infection) and can be possibly fatal. Signs and symptoms of pump infection can include redness, swelling, or pain around the pump or surgical scar on the back. Fever and a stiff neck are also common. I recommend that Claudine Joseph go to the Emergency Department if she has any of signs/symptoms of pump infection. MRI SCANNING Synchromed II ITB pumps are MRI compatible including 3T strength scanners. The pump stops pumping temporarily when the patient is moved near the MRI machine. The pump automatically restarts once the patient moves away from the MRI machine. We follow a clinic best practice of interrogating the pump following MRI scans to ensure the ITB pump has restarted. This can often be arranged to be done by a[employer] Conference And Event Organiser if scheduled during business hours. We recommend AGAINST any MRI scans scheduled outside of business hours. EDUCATION: HOT TUBs, STEAM ROOMS, SAUNAS AND TANNING BED We recommend patients avoid these, especially if over 102 degrees. Heating up your body causes the ITB pump to potential increase its flow rate, which could cause overdose/. EDUCATION: SCUBA DIVING We recommend that an ITB patient avoid depths below 33 feet (10 meters). Diving lower than this could permanently damage the pump. Also as you descend and the pressure around your body increases, pump flow can decrease. This could lead to baclofen withdrawal/. EDUCATION REGARDING DAYLIGHT SAVINGS TIME The clock inside the pump does not adjust for daylight savings time changes (spring forward and fall backwards). If you are on flex dosing or bolus dosing programming then your dosing will becomeshifted an hour, which may cause problems for the patient. The pump clock only corrects for daylight savings time after being interrogated by a it programmer analyst. The flex/bolus dosing patient should schedule a visit after a time change to reset their pump clocks. I spent Normal minutes face to face with the patient today. Over half the time was spent counselingregarding her spasticity as well as it's underlying medical condition, as well as her coordinating care.Thank you very much for allowing me to participate in this patient's care and please do not hesitate to contact me with questions or concerns. Sincerely, Augusto Moncada MD [facility] Staff Neurologist Neuroimmunology & Multiple Sclerosis [facility] [address] [place] [address] Rd., [address], [facility] 1:14 PM 09/22/22 Voice recognition technology was used to aid in the documentation of this medical record. Some words may not be printed exactly as they were spoken. While efforts were made to carefully edit and correct any inaccuracies, some typographical errors may be present. The provider or the clinic can be contacted if corrections are needed. documented in this [id number] History of Present illness Narrative* Elodia Riojas RN - 08/03/2022 12:03 PM EST Claudine was seen today for an incision check. Both of her incision looked clean, dry and well approximated. Both incision were cleaned with iodine. The left sided sutures was closed with glue. The right sided incision was closed with sutures. All of the sutures were removed. The farm or ranch animal caretaker was toldto keep the area clean and dry. documented in this [id number] Telephone encounter Note* Telephone Encounter - Falguni Curry RN - 07/22/2022 5:53 AM EST Could she have an appt with Donna mid July? ITB pump refill appt note: 1st f/u after new pumpplaced [id number] Miscellaneous Notes* Telephone Encounter - Falguni Curry RN - 07/22/2022 5:53 AM EST Could she have an appt with Donna mid July? ITB pump refill appt note: 1st f/u after new pumpplaced * Telephone Encounter - Falguni Curry RN - 07/15/2022 10:06 AM EST Signed prescription faxed to [facility] [phone], confirmation received. * Telephone Encounter - Falguni Curry RN - 07/15/2022 9:18 AM EST Patient is currently in the ER with exposed ITB pump and elevated CRP/ESR/WBC. Request from [facility] for refills for home ITB fills. documented in this [id number] Note* Plan of Care - BÁRBARA QUICK - 07/21/2022 6:11 PM EST After Visit Summary reviewed with patient and/or family including the signs and symptoms of stroke,when to call 911 for stroke symptoms, medications prescribed on discharge, importance of follow-up appointment with listed providers. Written material provided and questions answered by RN. Patient discharged by power wheelchair to home with guardian/caregiver. [id number] Miscellaneous Notes* Plan of Care - BÁRBARA QUICK - 07/21/2022 6:11 PM EST After Visit Summary reviewed with patient and/or family including the signs and symptoms of stroke,when to call 911 for stroke symptoms, medications prescribed on discharge, importance of follow-up appointment with listed providers. Written material provided and questions answered by RN. Patient discharged by power wheelchair to home with guardian/caregiver. * Plan of Care - Brenda De La Rosa RN - 07/20/2022 11:49 PM EST Problem: Actual or potential alteration in health Goal: Absence of healthcare acquired conditions Outcome: Met Problem: Pressure Ulcer - Risk of Goal: Absence of pressure ulcer Outcome: Met Problem: Falls, Risk of Goal: Absence of falls Outcome: Met Problem: Actual or potential alteration in health Goal: Knowledge of Interdisciplinary Plan of Care Outcome: Not Met Goal: Knowledge of Enviroment Outcome: Not Met Problem: Pain Goal: Manage acute pain Outcome: Partially Met Goal: Manage chronic pain Outcome: Partially Met Goal: Reduced pain sensation Outcome: Partially Met Goal: Achievement of comfort function goal Outcome: Partially Met * Sign Off Note - Amalia Sexton CNP - 07/20/2022 3:22 PM EST Neurology Sign-Off Diagnosis: Breakthrough seizure in setting of pre-existing epilepsy and setting of ITB infection Tests Pending: None Discharge Medications & Treatments: Continue Epidiolex 350 mg (3.5 mL) via GT BID Continue LTG 250 mg BID Continue Keppra 1G BID IV Valium 5mg PRN for breakthrough seizure Additional Recommendations: Activity Restrictions: Reinforced. For additional details see patient discharge instructions & previous notes. Follow-up Testing (After Discharge): None Follow-up Appointment: With Dr. Talbert. See Discharge Tab/AVS for details. Message sent to [facility] to help arrange follow up. Recall: If questions. If worsening neurologic exam. * Sign Off Note - Florence Rebollar CNP - 07/20/2022 1:38 PM EST Neurosurgery Sign-Off Consulting Neurosurgeon: Dr. Mcfarlane Diagnosis: Baclofen pump exchange Plan: To OR on 07/15/22 for exchange of baclofen pump with Dr. Mcfarlane Follow-up: With Dr. Mcfarlane in the office in 2-3 weeks. Medications: Per primary team DVT Prophylaxis: Per primary team Braces: Not Applicable Activity: No Brace Needed Discharge instructions updated with appropriate follow-up. The Neurosurgery service will sign off at this time. Please re-consult with any questions, concerns or clinical updates. * Sign Off Note - Katja Helm MD - 07/20/2022 9:39 AM EST Infectious Disease Sign-Off Indication: Infected baclofen pump status post removal and insertion in a different site on 07/16. Antibiotic: Continue IV Zosyn for a total of 1 week after pump removal. Last day of antibiotic therapy is 07/23/2022 Continue wound care Labs: N/A Imaging: N/A ID Follow-up: As needed. The patient did not have positive [employer]TER HAND culture or bacteremia. She has localized pocket infection andit was removed. Recommend 1 week of therapy as above. Levaquin would have been a good option but the chart is reporting allergy to Levaquin. So we need to continue with IV therapy. Please call with any questions. Katja Helm MD, pager # [phone] [facility] [place] Infectious Diseases, office # [phone] * Plan of Care - Brenda De La Rosa RN - 07/20/2022 3:00 AM EST Problem: Actual or potential alteration in health Goal: Absence of healthcare acquired conditions Outcome: Met Problem: Pressure Ulcer - Risk of Goal: Absence of pressure ulcer Outcome: Met Problem: Falls, Risk of Goal: Absence of falls Outcome: Met Problem: Actual or potential alteration in health Goal: Knowledge of Interdisciplinary Plan of Care Outcome: Not Met Goal: Knowledge of Enviroment Outcome: Not Met Problem: Pain Goal: Manage acute pain Outcome: Partially Met Goal: Manage chronic pain Outcome: Partially Met Goal: Reduced pain sensation Outcome: Partially Met Goal: Achievement of comfort function goal Outcome: Partially Met * Quick Note - Katlin Cano CNP - 07/19/2022 11:06 AM EST Notified by [facility] teat that patient had L gaze preference w/ nystagmus, and arm/leg twitching forapprox 2 minutes. Neurology has been consulted. * Quick Note - Leeanne Marshall RN - 07/19/2022 9:54 AM EST At 0954 this RN entered pts room because tele alarm was going off for HR >140. HR was approx 144& pt noted with sz like activity. Pt had L gaze preference w/ nystagmus, and arm/leg twitching for approx 2 minutes. O2 sats noted at 88% on 2L NC. O2 increased to 6L NC and sat returned to 100%.Oral sxning performed & PRN IV valium administered. Dr Chambers notified and came to bedside toeval. Neuro c/s placed. * Plan of Care - Kerry Escalera RN - 07/19/2022 1:45 AM EST Problem: Actual or potential alteration in health Goal: Absence of healthcare acquired conditions Outcome: Partially Met Goal: Knowledge of Interdisciplinary Plan of Care Outcome: Partially Met Goal: Knowledge of Enviroment Outcome: Partially Met Problem: Pain Goal: Manage acute pain Outcome: Partially Met Goal: Manage chronic pain Outcome: Partially Met Goal: Reduced pain sensation Outcome: Partially Met Goal: Achievement of comfort function goal Outcome: Partially Met Problem: Pressure Ulcer - Risk of Goal: Absence of pressure ulcer Outcome: Partially Met Problem: Falls, Risk of Goal: Absence of falls Outcome: Partially Met * Sign Off Note - Marcelino Lofton CNP - 07/18/2022 4:28 PM EST Gastroenterology Sign-Off Discharge Medications: N/A Diet Tf per RD recommendations Follow-up Procedures/Testing: N/A Follow-up Imaging: N/A Follow-up Labs: N/A Follow-up Appointment: As needed. No further IP GI w/u planned at this time. Will sign off from GI. Please call if further assistanceis needed in future. Marcelino Lofton CNP * ED Attestation Note - Fernando Camacho MD - 07/17/2022 6:12 AM EST This patient was assessed by both physician and an APC. Personally evaluated examined the patient. Performed all aspects of the MDM as documented. Patient's baclofen pump right lateral abdomen is exposed. Will be hospitalized at this time for neurosurgeon consultation and likely removal. . . 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 Patient showed no s/s until about an hour in and started to present with thesyndrome again. The ATB was stopped and fluids started, patients in no clear distress and is okay. Called [facility] doctor supervisor telephone information and reached out to pharmacy to see if they had any recommendations on wh at to do with the vancomycin. * Quick Note - Nava Renteria RN - 07/16/2022 6:57 PM EST Epidiolex (cannabidol) given to 5 louise TAMMY Dwyer. * Quick Note - Nava Renteria RN - 07/16/2022 6:26 PM EST Patient transferred out of unit to room 5517 with Patient arrives on unit with wheelchair, oxygen tank, clothes, home slade pad, blankets and two bags full of yarn Verified with second associate, Newton Lovelace RN * Assessment & Plan Note - Marcelino Rocha MD - 07/16/2022 2:39 PM EST Associated Problem(s): S/P percutaneous endoscopic gastrostomy (PEG) tube placement (HCC) Assessment: Ms. Claudine Joseph is a 32 y.o. 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 This was exchanged yesterday 07/15 by neurosurgery. We have been consulted about leakage from PEG site. 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 This was closed by [facility] November 2021 with an OTSC clip and suture. She has a PEG placed at a new site that has been functioning well. On the floor this afternoon nursing staff noticed some leakage at the prior site. Mother reports that since November she has still has some persistent leakage at the priorPEG site. They see a local surgeon in [place] who has been very happy with overall closure. She still has had some ongoing leakage but this has improved with time. Mother typically has been using some Silvercel dressing and gauze. She does continuous TF with Promote (lactose intolerance). No concerns at home. Plan: Okay to wait for mom to get to hospital to resume tube feeds and ensure that amount of leakage consistent with what happens at home. Current PEG has otherwise functioned without concern. Motherhas been happy with surgical group in [place]. If she has heightened concerns for leakage can further re- evaluate potential EGD / surgical consultation. We will follow up tomorrow. * Quick Note - Danitza Valentin CNP - 07/16/2022 2:21 AM EST Patient takes cannabidioL (Epidiolex) at home for epilepsy. This medication is not on formulary. The patient mother brought this medication in earlier tonight. Pharmacy has instructed nurse to walk the medication to pharmacy, which was completed. * Significant Event - Danitza Valentin CNP - 07/16/2022 2:16 AM EST I was asked by the bedside nurse to evaluate the patient immediate for concerns for a very red face and upper chest, which was noticed 10 minutes after the infusion of vancomycin was started. I went to the patients bedside. She is tachycardic with a HR between 110-120; SBP was in the 90s. Her face and upper chest had an erythematous rash. Nurse confirms that this developed 10 minutes after vancomycin was started. This was the first dose of vancomycin this patient has received during THIS hospital stay. Vancomycin was stopped promptly. I attempted to call the patients mother to inquire about prior history or reaction but there was noanswer, VM message left. I called pharmacy to discuss the above. The recommendations were to continue the vancomycin but to infuse over 2-hours, rather 1-hour, and to administer PRN benadryl prior to. I called Dr. Magdaleno to discuss the above. She was in agreement to change vancomycin to infuse over 2-hours, rather 1-hour, and to administer PRN benadryl prior to. Pharmacy updated and medication orders updated. Addendum at 0231: Will add pepcid per pharmacy recommendation. * Quick Note - Latricia Curry RN - 07/16/2022 1:49 AM EST Patient arrives on unit with wheelchair, oxygen tank, clothes, home slade pad, blankets and two bags full of yarn. Verified with second associate, Chantal Rahman RN Skin assessment completed upon admission to unit. Verified by note author and Chantal Rahman RN. Abnormalities noted: -LLQ new baclofen pump insertion site -RLQ old baclofen site with STACIE drain -PEG tube in LLQ -Left lower back drsg -R buttock wound POA -Sacral wound POA -Surgical scar on back -Scattered bruising See LDA documentation for wound assessment. Enterostomal Therapy consult entered. Preventative Mepilex applied to sacrum and heels. * Brief Op Note - Kemal Barber DO - 07/15/2022 7:35 PM EST Brief Post Operative Note Patient Name: Claudine Joseph : 1990 (32 y.o.) Date of Service: 07/15/2022 CSN: [id number] Procedure(s): REMOVAL OF RIGHT INTRATHECAL PUMP, CATHETER WITH REPLACEMENT ON LEFT SIDE Pre-Operative Diagnoses: * INFECTION OF INTRATHECAL PUMP Post-Operative Diagnoses: * INFECTION OF INTRATHECAL PUMP Surgeon(s) and Role: * Peter Portillo MD - Primary * Kemal Barber DO - Resident - Assisting Anesthesiologist: Mignon Bazan MD; Ernesto Rivera MD [employer] Specialist: Priyanka Buenrostro RN; Karen Hanson RN Scrub Person: ST Josefina Operative findings: Pump with skin dehiscence Approximately 25 cm intrathecal portion distal metal attachment this was calculated and not from prior documentationt, 53 cm attachment to baclofen pump Intra and immediate post-operative complications: none Type of anesthesia used: General Estimated blood loss: 100 mL Estimated urine output: 450 mL Specimen(s): ID Type Source Tests Collected by Time Destination 1 : 1. CEREBRAL SPINAL FLUID CSF CSF CSF AFB CULTURE, CSF ANAEROBIC CULTURE, CSF FUNGUS CULTURE Peter Portillo MD 07/15/2022 1626 2 : abdominal wall pocket Swab Abdominal Wall WOUND AEROBIC CULTURE, WOUND AFB CULTURE, WOUND ANAEROBIC CULTURE, WOUND FUNGUS CULTURE Peter Portillo MD 07/15/2022 1640 3 : abdominal wall pocket Tissue Abdominal Wall TISSUE AEROBIC CULTURE, TISSUE AFB CULTURE, TISSUE ANAEROBIC CULTURE, TISSUE FUNGUS CULTURE Peter Law MD 07/15/2022 1641 Implant(s): Implant Name Type Inv. Item Serial No. Melon Packer Lot No. [id number] No. Used Action PUMP 40ML PAIN SYNCHROMED II - [id number] Catheter - Implant PUMP 40ML PAIN SYNCHROMED II [id number] MED[employer] ELAINE N/A 1 Explanted Intrathecal Catheter Pump Segment Revision Kit MEDTRONIC [id number] Implanted PUMP 40ML PAIN SYNCHROMED II - [id number] Catheter - Implant PUMP 40ML PAIN SYNCHROMED II [id number] [employer] ELAINE 1 Implanted Drain(s): Closed/Suction Drain Inferior;Lateral;Right Back 10 Fr. (Active) Site Assessment Clean;Dry;Intact 07/15/221902 Dressing Type Other (comment) 07/15/221902 Drainage Appearance Serosanguineous 07/15/221902 Gastrostomy/Enterostomy PEG-jejunostomy (Active) Gastrostomy/Enterostomy PEG-jejunostomy RUQ (Active) Gastrostomy/Enterostomy 18 Fr. RUQ (Active) Gastrostomy/Enterostomy LUQ (Active) Urethral Catheter 20 Fr. (Active) Site Assessment Intact 07/15/221928 Reason for Continued Urinary Catheter Chronic history of indwelling or supra- pubic catheter 07/15/221928 Wound(s): Wound 07/15/22 Removal of right intrathecal pump and catheter Flank Right (Active) Dressing Status Intact 07/15/221902 Dressing Changed New 07/15/221902 Drainage Amount Small 07/15/221902 Drainage Description Fresh blood 07/15/221902 Primary Dressing Non adherent 07/15/221902 Secondary Dressing Transparent film 07/15/22 190 Wound 07/15/22 placement of intrathecal baclofen pump Abdomen LLQ (Active) Dressing Status Intact 07/15/221902 Dressing Changed New 07/15/221902 Drainage Amount None 07/15/221902 Primary Dressing Non adherent 07/15/221902 Secondary Dressing Transparent film 07/15/221902 Wound 07/15/22 LEFT INTRATHECAL BACLOFEN PUMP PLACEMENT Flank Left (Active) Dressing Status Intact 07/15/221902 Dressing Changed New 07/15/221902 Drainage Amount None 07/15/221902 Primary Dressing Non adherent 07/15/221902 Secondary Dressing Transparent film 07/15/221902 Kemal Barber DO 07/15/2022 7:35 PM * Op Note - Peter Portillo MD - 07/15/2022 4:17 PM EST [facility] PATIENT NAME: Claudine Joseph DATE OF : 1990 CSN: [id number] PHYSICIAN: Peter Portillo MD ADMIT DATE: 07/14/2022 DICTATED BY: Peter Portillo MD SURGERY DATE: 07/15/2022 OPERATIVE REPORT SURGEON: Peter Portillo MD PREOPERATIVE DIAGNOSIS: 1. Infection of intrathecal pump 2. Spastic cerebral palsy POSTOPERATIVE DIAGNOSIS: Same PROCEDURES: REMOVAL OF RIGHT INTRATHECAL PUMP AND ABDOMINAL CATHETER SEGMENT 2. PLACEMENT OF LEFT ABDOMINAL INTRATHECAL PUMP AND ABDOMINAL CATHETER SEGMENT 3. REVISION OF ABDOMINAL INCISION WITH DEBRIDEMENT- 5 CM 4. ELECTRONIC ANALYSIS AND PROGRAMMING OF INTRATHECAL PUMP 5. MODIFIER 22- CASE OF INCREASED COMPLEXITY DUE TO SIGNIFICANT CONTRACTURES REQUIRING COMPLEX POSITIONING WELL TWO STAGE SURGERY TO ADDRESS THE REPLACEMENT REQUIRING 1 HOUR OF ADDITIONAL WORK ANESTHESIA: General. RESIDENT: Kemal Barber ESTIMATED BLOOD LOSS: 100 cc IMPLANTS: 1. Medtronic SynchroMed II 40 cc pump model 8637-40 2. Catheter pump segment revision kit PROGRAMMING: Baclofen 2000 mcg/ml @ 649 mcg/day Calculated approximately 25 cm of remaining intrathecal catheter. The new pump segment is 53 cm. Connecting point is in the lumbar region. DISPOSITION: Postanesthesia care unit. INDICATIONS: 32 yo female with spastic cerebral palsy, presented to [facility] after the pump extruded from the right abdomen due to skin dehiscence. The patient continues to receive therapy and her spasticity has remained stable. She is on a high dose of baclofen. The catheter was found to be in good position. Given that the infected area is restricted to the right abdomen and there are no signs of infection in the lumbar region, we discussed removing the device on the right and replacing on the left so the patient does not have loss of therapy. We will obtain cultures during the process. The mother consented for surgery. DESCRIPTION OF PROCEDURE: The patient was brought into the room and intubated supine on the operating table. The patient was placed in the left lateral decubitus position making sure her arms, legs, face and axilla were padded appropriately. A rider bag was used to keep the patient in that position with exposure of the lumbar area and left abdomen. We marked the previous lumbar incision. The abdominal incision was marked around the dehisced area to be able to revise the skin. The whole area, including the left flank,was prepped with chlorhexidine soap, dried with a towel and prepped with iodine solution. A time out wasperformed. The patient was draped in the usual sterile fashion. We used two separate sets for the removal and placement of the pump to maintain sterility. We also accessed the lumbar area and closed that area prior to removal of the infected pump. EXPOSURE OF LUMBAR CATHETER Using a 15 blade the lumbar incision was opened and taken to the level of the catheter using bovie cautery. The catheter was exposed including the connecting point to the abdominal catheter segment. The abdominal segment was cut just distal to the connecting point. We proceeded then to obtain CSF for cultures. The intrathecal catheter was working well. At this point we cut proximal to the connecting point and tied the intrathecal catheter in place. The catheter was then sutured to the fascia using a silk suture for the second part of the procedure. We then partially closed the lumbar incisionusing 0 Vicryl for the deeper layer followed by 0 Vicryl at the level of the skin. Ioban was then pl aced over the incision to protect it. REMOVAL OF INFECTED DEVICE ON THE RIGHT We then turned our attention to removal of the infected intrathecal pump. Using a 15 blade we cut acurvilinear incision around the dehisced segment of the skin. Bovie cautery was then used for hemostasis. This allowed for the exposure of clean skin circumferentially. We then proceeded to remove the pump from the pocket and cut the sutures holding it in place. Cultures were obtained from the depth of the pocket and some tissue was also sent for cultures. We then proceeded to remove the abdominal segment of the catheter by detaching it from the scar tissue using Bovie cautery. We followed the catheter as it exits towards the right flank. We gently pulled on the catheter but ended up breaking it in that process. We could tell that a segment of the catheter was left in place on the right flank. The pocket was then irrigated copiously with saline solution. We also debrided the edges of the pocket and any tissue that seem infected. The pocket was then closed by opposing the layers using 0 Vicryl inside the pocket itself. The skinincision was then repaired by using a combination of 0 Vicryl and 2-0 Vicryl bringing the layers together by rotating the abdominal skin towards the right flank skin and distributing the tension. 3-0Vicryl was also used in the immediate subdermal tissues to allow for proper closure. The skin incision was finally closed using nylon in a running fashion. The drapes were then removed and the area was dressed using Polysporin, Telfa and Tegaderm. We proceeded then to turn the patient to the right lateral decubitus position exposing in this fashion the left abdominal area for the placement of the new device. Positioning was quite difficult as the patient has a PEG tube and is very contracted. Furthermore, she has severe scoliosis which makesthe left side the contracted side for the placement of the device. The incision was fashioned on the abdomen inferior to the PEG tube going towards the pelvis. We removed the Ioban from the lumbar incision and the whole area was prepped 3 separate times with ChloraPrep solution including the left flank and the abdomen. The patient was then draped again in the usual sterile fashion. I proceeded to open the lumbar incision using scissors and exposed the previously cut intrathecal catheter. A pocket was then fashioned towards the left side to accept the abdominal catheter segment. PLACEMENT OF THE PUMP Using a 15 blade the abdominal incision was opened and taken to the level of the fat. Bovie cauterywas used to expand the incision down to the abdominal fascia. The abdominal fascia was elevated over the muscle as the patient is quite thin and this will provide an additional layer of protection. Using blunt and sharp dissection a pocket was created inferior to the incision as well as slightly sup erior to be able to suture the fat over the pump. Any traversing vessels were cauterized and cut. The tunneler was placed form the abdominal to the lumbar incision and the catheter was transferred.The excess catheter was cut and the abdominal segment catheter was connected in the lumbar region. The connecting point was sutured to the fascia with 2-0 silk sutures. CSF was seen from the tip of the catheter. Four 2-0-silk sutures were placed through the muscle to hold the pump in place. The new pump was filled with medication and connected to the catheter system. We accessed the sampling port and withdrew CSF to confirm an appropriate connection. The excess catheter was then coiled behind the pump and the device was sutured to the pocket with the sutures. The sampling port was accessed one last time to confirm the sutures did not crimp the tubing. The incisions were irrigated copiously with saline solution, dried with a lap sponge and closed using 0-vicryl for the deeper layers and the fat layer followed by 3-0 vicryl for the subdermal tissuesand 3-0 monocryl in a subcuticular fashion. Tissue glue, Telfa and Tegaderm were used as dressings. The patient was extubated in the operating room in good condition. All counts were correct at the end of the case. I was present and scrubbed throughout the case with my resident. The pump was programmed with the settings above and the catheter was bolused with medication. We had to obtain x-rays in the postanesthesia care unit to determine the amount of catheter that was lefton the right flank. After calculating the remaining catheter we were able to subtract from the entirety of the calculated original catheter. This allowed us to determine the approximate amount of intrathecal catheter left in place. PETER PORTILLO MD * Sign Off Note - Bashir Chappell MD - 07/15/2022 3:05 PM EST Neurology Sign-Off Diagnosis: Baclofen pump exposure Tests Pending: None Discharge Medications & Treatments: None Additional Recommendations: None Follow-up Testing (After Discharge): None Follow-up Appointment: Follow-up in spasticity clinic with Dr. Estuardo Moncada after discharge Recall: If questions. documented in this [id number] History of Present illness Narrative* lEodia Riojas RN - 07/21/2022 4:29 PM EST Post op call was unable to be completed as patient was being discharged today. documented in this [id number] Hospital course Narrative* Khadar Yoo MD - 07/21/2022 10:57 AM EST Images from the original note were not included. [facility] DISCHARGE SUMMARY Claudine Joseph Account: [id number] Admitted: 07/14/2022 Discharge Date/Time: 07/21/22 / 10:57 AM Handoff to PCP Routine hospital follow up Clinical Summary Claudine Joseph is a 32 y.o. female with a history of cerebral palsy s/p baclofen pump, quadriplegia, chronic decubitus ulcers, chronic urinary retention with Sage, dysphagia s/p PEG tube,chronic hypoxic respiratory failure on 2-3L NC, epilepsy, CKD who presented to [facility] 07/14/2022 with exposure of a portion of her baclofen pump, now s/p exchange. Course complicated by seizure. Baclofen pump exposure: Exposed baclofen pump through R buttock/hip area. Last revised at [facility] with Dr Ramsey (neurosurgry). S/p pump exchanged 07/15/22. Wound Cx with pseudamonas and Strep agalactiae. Tissue Cx with Strep agalactiae. Started On Vancomycin and Zoxyn but developed concerns for samra syndrome 07/16/22. Vancomycin changed to Linezolid. ID recommended IV zosyn through 07/23/22. Neurosurgery followed Epilepsy with breakthrough seizure: with h/o difficult to control seizure. Neuro recommended to continue home AEDs Cerebral palsy: Due to anoxic brain injury at . Non-verbal baseline, at times blinks for communication. Spastic with baclofen pump as above. Neurogenic bladder with chronic Sage. Dysphagia: with chronic PEG for all meds and TFs. RD following. Concern for leakage from peg tube. GI followed, ok to resume TF. Chronic hypoxic respiratory failure: At baseline 2-3L home O2. Did not tolerate BIPAP at home. 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 May repeat as needed. Do not use on Peripheral or Midlines . heparin, porcine (PF) 100 unit/mL Syrg For Open Ended Midline/PICC/CVC/Port: Flush with 5ml heparin as final flush after each use, weekly if not used. Use 3ml for Peripheral IV . piperacillin-tazobactam IV (Outpatient Therapy) Commonly known as: ZOSYN Infuse 4.5 (four and a half) g into a venous catheter every 8 (eight) hours End: 07/23/22 sodium chloride (PF) injection Commonly known as: NS Midline/PICC/CVC/Port: Flush with 10ml pre/post use, weekly if not used, 20ml after lab draw/TPN. Use 5ml for Peripheral IV pre/post use . CONTINUE taking these medications acetaminophen 325 MG tablet Commonly known as: TYLENOL acetic acid 0.25 % irrigation baclofen 40,000 mcg/20mL (2,000 mcg/mL) Soln Simple continuous infusion ITB at daily dose of 649.8 mcg/day. . CENTRUM ORAL cholecalciferol (vitamin D3) 50 mcg (2,000 unit) Cap Epidiolex 100 mg/mL Soln Generic drug: cannabidioL 3.5 mL (350 mg total) by G-tube route 2 (two) times a day . fluconazole 150 MG tablet Commonly known as: DIFLUCAN fluticasone propionate 50 mcg/actuation nasal spray Commonly known as: FLONASE Instill 1 (one) spray into each nostril daily as needed for rhinitis . guaiFENesin 100 mg/5 mL syrup Commonly known as: ROBITUSSIN ipratropium 0.02 % nebulizer solution Commonly known as: ATROVENT inhale contents of 1 vial in nebulizer twice a day IF CONGESTED OR WHEEZING OR LABORED CAN TAKE UP TO FOUR TIMES DAILY . * lamoTRIgine 150 MG tablet Commonly known as: LAMICTAL take 1 tablet PER G TUBE twice a day * lamoTRIgine 100 MG tablet Commonly known as: LAMICTAL take 1 tablet PER G TUBE twice a day levETIRAcetam 100 mg/mL solution Commonly known as: KEPPRA loratadine 10 mg tablet Commonly known as: CLARITIN medroxyPROGESTERone 150 mg/mL Syrg Commonly known as: DEPO-PROVERA montelukast 10 mg tablet Commonly known as: SINGULAIR omeprazole 40 MG capsule Commonly known as: PRILOSEC ondansetron 4 mg/5 mL solution Commonly known as: ZOFRAN 5 mL (4 mg total) by Per G Tube route every 8 (eight) hours as needed for nausea . polyethylene glycol 17 gram powder Commonly known as: MIRALAX promethazine 12.5 MG suppository Commonly known as: PHENERGAN * Valtoco 15 mg/2 spray (7.5/0.1mL x 2) Novi Generic drug: diazePAM Instill 1 spray into each nostril as needed (Seizures, may repeat times 1 in 4 hours) . * diazePAM 2 MG tablet Commonly known as: VALIUM 3 (three) tablets (6 mg total) by Per G Tube route daily as needed For seizures . * This list has 4 medication(s) that are the same as other medications prescribed for you. Read thedirections carefully, and ask your doctor or other care provider to review them with you. Where to Get Your Medications You can get these medications from any pharmacy Bring a paper prescription for each of these medications baclofen 40,000 mcg/20mL (2,000 mcg/mL) Soln These medications will be mailed to you From: [facility] [place] [address] alteplase 2 mg injection heparin, porcine (PF) 100 unit/mL Syrg piperacillin-tazobactam IV (Outpatient Therapy) sodium chloride (PF) injection Physician(s) Family: Marielle Duque MD, , Address: [address] [facility] [address] Follow Up: [facility] [address] [facility] [id number] Follow up Schedule post hospital follow up with [facility] Sp[facility] Clinic: Peter Portillo MD [address] [facility] [id number] Follow up The office will call regarding follow up visits. [facility] Address: Servicing Counties: [facility], [facility] [phone] Marielle Duque MD [facility] [address] [facility] [id number] Follow up in 1 week(s) Richar Talbert MD [address] [facility] [id number] Follow up call for follow up appointment Additional Information: Patient seen and examined day of discharge. For more information regarding patient's care, including complete radiology reports, please contact [facility] at Patient instructions, including activity, were given to the patient/family at discharge. Please seethe After Visit Summary in the medical record for details. Time spent on discharge: > 30 minutes Completed by: Khadar Yoo on 07/21/22, 10:57 AM documented in this [id number] History of Present illness Narrative* KEKE Simon - 07/21/2022 10:29 AM EST Care Management Progress Note Date: 07/21/2022 Time: 10:29 AM Patient Name: Claudine Joseph Date of : 1990 Discharge Plan: D/C Disposition: Home Health Care Services Related to Current Admission?: Yes Agency/Destination: [facility] Reviewed: Explained services/benefits Reason for Choice: Patient/Family preference, Currently with agency Discharging Transportation Plan: Transportation Type: Auto Discharge Plan Status: [facility] following for dc planning. Per most recent hub note, SIERRA Frazier confirmed SOC for Wednesday. Attending requested [employer] reach out to guardian to inquire if [facility] [employer] contacted guardian Peg, who states she can be at [facility] this evening to transport, would prefer to be present when dc paperwork is reviewed. [employer]IATE PROFESS[employer]OLOGY notified attending that guardian will transport. * Abbey Rivera RN - 07/21/2022 8:30 AM EST Care Management Progress Note Date: 07/21/2022 Time: 8:30 AM Patient Name: Claudine Joseph Date of : 1990 Discharge Plan: D/C Disposition: Home Health Care Services Related to Current Admission?: Yes Agency/Destination: [facility] Reviewed: Explained services/benefits Reason for Choice: Patient/Family preference, Currently with agency Discharging Transportation Plan: Transportation Type: Auto Discharge Plan Status: [facility] [place]/[facility] confirmed a start of care for Wednesday for homehealth care/IV antibiotics. * Khadar Johnson MD Naila - 07/21/2022 7:38 AM EST [facility] Inpatient Progress Note 07/21/2022 Claudine Joseph 1990 [id number] Assessment/Plan: Claudine Joseph is a 32 y.o. female with a history of cerebral palsy s/p baclofen pump, quadriplegia, chronic decubitus ulcers, chronic urinary retention with Sage, dysphagia s/p PEG tube,chronic hypoxic respiratory failure on 2-3L NC, epilepsy, CKD who presented to [facility] 07/14/2022 with exposure of a portion of her baclofen pump. Course complicated by seizure. Baclofen pump exposure: Exposed baclofen pump through R buttock/hip area. Last revised at [facility] with Dr Ramsey (neurosurgry). S/p pump exchanged 07/15/22. Would Cx with pseudamonas and Strep agalactiae. Tissue Cx with Strep agalactiae On Vancomycin and Zoxyn but developed concerns for samra syndrome 07/16/22. Vancomycin changed to Linezolid. ID recommended IV zosyn through 07/23/22. Epilepsy with breakthrough seizure: Home meds Lamictal, Keppra, cannabidiol continued. Has PRN benzos at home, ordered. Seizure 07/19/22 and given Valium. Neuro recommended to continue home AEDs Onzli-[id number]-[id number] hypotension: Occurred post-op, on Levophed as of 07/16/2022. CT A/P without abscess, hemorrhage. Baseline BP is mildly low, may be fluctuations in response to sedating/pain medications. Improved. Cerebral palsy: Due to anoxic brain injury at . Non-verbal baseline, at times blinks for communication. Spastic with baclofen pump as above. Neurogenic bladder with chronic Sage. Dysphagia: with chronic PEG for all meds and TFs. RD following. Concern for leakage from peg tube. GI followed, ok to resume TF. CKD: Per hx, though normal GFR based on Cr. Chronic hypoxic respiratory failure: At baseline 2-3L home O2. Did not tolerate BIPAP at home. Code status: Full, dicussed on admit DVT Prophylaxis: Lovenox Current living situation: home Expected Disposition: home with home health Estimated discharge date: 07/20/22 if home antibiotics arranged Tried calling family 07/19 Subjective: Patient seen and examined at bedside. Could not be discharged yesterday as guardian was not able totransport late. However arrangements made for today. Discussed in MDR Physical Exam: BP 110/74 (BP Location: Left arm, Patient Position: Lying) Pulse (!) 142 Temp 99.9 F (37.7 C) (Axillary) Resp (!) 20 Ht 4' 6 Wt 33.8 kg (74 lb 8.3 oz) SpO2 100% BMI 17.97 kg/m General: NAD, thin, RIJ noted Eyes: EOMI ENT: neck supple Cardiovascular: Regular rate. Respiratory: Clear to auscultation Gastrointestinal: Soft, non tender, peg in place Genitourinary: no suprapubic tenderness Musculoskeletal: No edema. Contracted UE Skin: warm, dry Neuro: Alert. Not oriented. No following commands Psych: Mood appropriate. Current Medications: cholecalciferol (vitamin D3) 2,000 Units Tube Daily cannabidioL 3.5 mL G-tube BID lamoTRIgine 250 mg Tube BID levETIRAcetam 1,000 mg Tube BID loratadine 10 mg Tube QAM montelukast 10 mg Tube Daily pantoprazole 40 mg Intravenous Daily piperacillin-tazobactam (ZOSYN) extended infusion 3.375 g Intravenous Q8H polyethylene glycol 17 g Tube QAM sodium chloride (PF) 10 mL Intracatheter Q8H ISSAC sodium chloride (PF) 5 mL Intravenous Q8H ISSAC Labs, Imaging and Studies reviewed: Results from last 7 days Lab Units 07/17/22 0510 07/16/22 0710 07/15/22 0331 WBC K/mcL 9.59 10.14 12.17* HGB g/dL 9.7* 10.3* 14.3 HCT % 30.3* 32.4* 47.2* PLT K/mcL 193 190 278 Results from last 7 days Lab Units 07/19/22 0522 07/17/22 0510 07/16/22 2100 07/16/22 0632 07/15/22 0331 SODIUM mmol/L 140 146* -- 142 138 POTASSIUM mmol/L 3.9 2.9* 3.4* 3.4* 4.2 CHLORIDE mmol/L 102 111* -- 108 105 BICARB mmol/L 27 27 -- 26 21 BUN mg/dL 10 3* -- 8 14 CREATININE mg/dL 0.34* 0.25* -- 0.34* 0.29* EGFR mL/min/1.73 m2 140 151 -- 140 146 GLUCOSE mg/dL 139* 90 -- 88 100* CALCIUM mg/dL -- -- -- -- 9.7 Results from last 7 days Lab Units 07/15/22 0948 INR 1.0 * Amalia Oneill RD - 07/20/2022 2:24 PM EST Nutrition Care Follow Up Nutrition Diagnosis: Swallowing difficulty related to neurologic impairment as evidenced by the 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 May continue home regimen when discharged home. Nutrition Goals: Pt will receive 80% of estimated tube feeding volume w/o N/V/D or >= 500 ml residuals Start Date:07/20/2022 Expected End Date:07/24/2022 Nutrition Education: Not appropriate due to clinical presentation Monitoring and Evaluation: Pt did not receive >80% of estimated enteral nutrition- 3 day average = ~602 ml (~56%) Continue to monitor TF tolerance, wts, labs Pt remains at high risk for nutrition at this time. Assessment: Pertinent clinical information per physician notes: presented to [facility] on 07/14/2022 with spasticity and baclofen pump exposure Patient/family comments: pt to be discharged home today. Height: 4' 6 Current weight: 33.8 kg (74 lb 8.3 oz) BMI Body mass index is 17.97 kg/m . Weight hx: Wt Readings from Last 5 Encounters: 07/16/22 33.8 kg (74 lb 8.3 oz) 02/27/22 36.3 kg (80 lb) 01/14/22 36.3 kg (80 lb) 11/30/21 37.2 kg (82 lb) 10/17/21 38.6 kg (85 lb) Current Diet:.Diet NPO Except: OTHER; Specify: Meds via PEG Current Tube Feeding: Promote at 45 Recent intake: ~56% of TF volume Current intake Likely does not meet estimated needs. Difficulty Chewing/Swallowing: Yes Skin Integrity: Buttock, gluteal fold wound, sacral wound, GI Function: Active, LBM 07/19/22 Labs: Recent Labs 07/19/22521 NA 140 K 3.9 BICARB 27 CL 102 GLUCOSE 139* BUN 10 CREATININE 0.34* Lab Results Component Value Date ALBUMIN 4.4 10/17/2021 Scheduled Meds: cholecalciferol (vitamin D3) 2,000 Units Tube Daily cannabidioL 3.5 mL G-tube BID lamoTRIgine 250 mg Tube BID levETIRAcetam 1,000 mg Tube BID loratadine 10 mg Tube QAM montelukast 10 mg Tube Daily pantoprazole 40 mg Intravenous Daily piperacillin-tazobactam (ZOSYN) extended infusion 3.375 g Intravenous Q8H polyethylene glycol 17 g Tube QAM sodium chloride (PF) 5 mL Intravenous Q8H ISSAC Continuous Infusions: sodium chloride 0.9 % 25 mL/hr (07/20/22 0653) Needs Calculations: as per initial assessment Estimated Energy Needs Total Energy Estimated Needs: 1014kcal Method for Estimating Needs: 30kcal/kg Total Protein Estimated Needs: 57-76g Method for Estimating Needs: 1.5-2g/kg Amalia Oneill RD, LD * Amalia Sexton CNP - 07/20/2022 11:00 AM EST Neurology Inpatient Progress note [facility] 07/20/2022 Amalia Sexton CNP [facility] Patient: Claudine Joseph Date of : 1990 (32 y.o. female) Referring Provider: Refer to consult order in electronic medical record PCP: Marielle Duque MD ADDENDUM: Case reviewed with DR. Mejia. Patient also received an extra dose of Keppra on 07/20 for breakthrough seizure. Reviewed notes from Epileptologist Dr Talbert, patient as not tolerated higher keppra doses in the past. No change to AED's at this time. Monitor for any new infection, could also trigger breakthrough seizures. Recommend f/u with Dr Talbert after discharge. [facility]. No additional recommendations, will sign off. 07/20/2022 3:13 PM ASSESSMENT: 32 y.o. female with history of anoxic brain injury, cerebral palsy, chronic kidney disease, epilepsy, spasticity with a baclofen pump presented to [facility] on 07/14/2022 with spasticity and baclofen pump exposure. Pt with breakthrough seizure 07/19, which is pretty typical for her per her mother. Likely exacerbated by stress of hospitalization / infection. No change to AED management, increased PRN valium to mirror closer to her home rescue therapy. No repeated events or seizures PLAN: #Epilepsy #Breakthrough seizure # Cerebral palsy # Anoxic brain injury Seizure: Resolved Etiology: Pre-existing refractory epilepsy and anoxic brain injury, hx of near daily seizures. Testing: None If becomes febrile or has drastic increase in seizure frequency would obtain CSF to rule out developing meningitis. Not clinically indicated at this time. Labs: None Anti-epileptic Medication: Continue Epidiolex 350 mg (3.5 mL) via GT BID Continue LTG 250 mg BID Continue Keppra 1G BID IV Valium 5mg PRN for breakthrough seizure Seizure Precautions Activity Restrictions: does not apply Eventual Outpatient Follow-up: with established neurologist No additional recommendations at this time. Other issues: #Baclofen pump exposure #Acute on chronic hypotension #Cerebral Palsy #Chronic respiratory failure NS managing Baclofen pump exchange. Admitted with these risk variables:Anoxic Brain Damage. Please see assessment and plan for further details. Discussed plan with other teams' providers, specifically Dr. chambers. Time statement: A total of 25 minutes were spent on this encounter either in the patient's room or on the patient's hospital unit and over half of that time was spent on [id number] counseling and/or coordination of care. Covering neurologist : Dr Mejia DIAGNOSTIC TESTING SUMMARY: Pending Lab and Radiology Results Order Current Status Blood Culture #1 Preliminary result Blood Culture #2 Preliminary result CSF AFB Culture Preliminary result CSF Fungus Culture Preliminary result Tissue AFB Culture Preliminary result Tissue Fungus Culture Preliminary result Wound AFB Culture Preliminary result Wound Fungus Culture Preliminary result Resulted Testing: (MRI/CT/XR, EEG, EMG, CSF, Cardiac, Labs) Na 140, K 3.9, Cr 0.34 WBC 9.59, H/H/PLT: 9.7/30.3/193 SUBJECTIVE: Chief Complaint/Reason for Visit:seizure History of Present Illness (HPI) since last visit: Informant(s): Care Team/Chart No recurrent seizures Review of Systems: Unable to perform ROS due to patient's aphasia., mute SUBJECTIVE: Chief Complaint/Reason for Visit: Care team/chart review History of Present Illness (HPI) since last visit: Informant(s): Care Team/Chart No further seizures. Per nursing, had a seizure AM 07/19 PRIOR to her AM meds. Per mother she has at least daily seizures. Pt is now back to baseline. Review of Systems: All systems reviewed and negative except pertinent positives and negatives documented in the History of Present Illness (HPI). OBJECTIVE: Physical Examination: BP 106/72 (BP Location: Right arm, Patient Position: Lying) Pulse 88 Temp 98.2 F (36.8 C) (Axillary) Resp 16 Ht 4' 6 Wt 33.8 kg (74 lb 8.3 oz) SpO2 100% BMI 17.97 kg/m CAMEJO: DNFC: Does Not Follow Commands FRANKLIN: Unable to Assess GENERAL: General Appearance: In NAD Neck: Supple Respiratory Effort: Normal Extremities: No edema Skin: No rashes visualized MENTAL STATUS: Alertness, Attention Span & Concentration: Awake, but decreased attention and concentration, she does smile and track this provider Language: mute Speech: Mute Orientation: DNFC Memory, Recent & Remote: DNFC Fund of Knowledge: DNFC CRANIAL NERVES: II - Visual Negron: no blink to threat II, III - Pupils: PERRL III, IV, - Eye Movements: eyes move spontaneously with a jerk like nystagmus fashion but able totrack, no gaze preference V - Facial Sensation: DNFC VII - Face Symmetry and Strength: she has a smile/grinn when spoken to. VIII - Hearing: DNFC IX, X - Palate: DNFC XI - Shoulder Shrug: DNFC XII - Tongue Protrusion: Normal COORDINATION & GROSS MOTOR: Abnormal Movements: None Tone: increased throughout Bulk: decreased throughout Spasticity in her wrists. Overall her stature is slight and small. MOTOR - MUSCLE STRENGTH: Pt contracted of all 4 limbs, did not apply painful stimulus for patient comfort Spontaneous movements of both hands/wrists. * Citlalli MontalvoKEKE valdez - 07/20/2022 8:58 AM EST Care Management Progress Note Date: 07/20/2022 Time: 8:58 AM Patient Name: Claudine Joseph Date of : 1990 Discharge Plan: D/C Disposition: Home Agency/Destination: Home Options Reviewed: Explained services/benefits Reason for Choice: Patient/Family preference, Currently with agency Discharging Transportation Plan: Transportation Type: Auto Discharge Plan Status: [facility] following for dc planning. Per chart review, pt is current with [facility] 86 hrs/week and [facility] [place] IP for TF via PEG. TF order, insurance forms and fancy stitcher note were faxed to [facility] [place] on 07/18/22. Per last [facility] note, guardian has a supply of Promote tube feeding at home already, guardian will transport at dc. [employer] attempted to contact [facility] [place] liaison Ivana at [phone], left message requesting call back to confirm that fax was received over weekend. [facility] will continue to follow. ADD 9:32am Call back from Ivana stating that fax was received, [facility] [place] has all necessary information. Ivana inquired if pt could be sent home with a small supply of Promote should UPS delivery be delayed d/t holiday. [employer]OLOG[employer] notified that guardian has a supply at home. ASSOCIATE PROFESSOR OF THEOLOGY provided SHARON, will notify if pt dc's today. ADD 11:33am This pt was discussed during MDRs, will need IV abx until 07/23/22. Hub c/s, [facility] Per [facility], plan to continue IV Zosyn. Plan to dc with Midline. ADD 3:28pm Message from RN, pt received Midline and will dc after 6pm dose. JUDI Neville accepted for IV abx. DC milestones completed. ADD 3:40pm ASSOCIATE PROFESSOR OF THEOLOGY contacted guardian Peg ([phone]), notified that pt is ready to dc after 6pm IV abx dose.Peg is agreeable to [facility] for IV abx, ASSOCIATE PROFESSOR OF THEOLOGY notified that [facility] will reach out tomorrow. ASSOCIATE PROFESSOR OF THEOLOGY informedthat TF's are set up through [facility] [place]. Peg has no questions at this time, is on her way to [facility]. ADD 3:58pm ASSOCIATE PROFESSOR OF THEOLOGY notified that pt does not have veins to accommodate a Midline, AccuCath placed in upper arm. Hub liaison updated. * Niju Baby MD Naila - 07/20/2022 7:49 AM EST [facility] Inpatient Progress Note 07/20/2022 Claudine Joseph 1990 [id number] Assessment/Plan: Claudine Joseph is a 32 y.o. female with a history of cerebral palsy s/p baclofen pump, quadriplegia, chronic decubitus ulcers, chronic urinary retention with Sage, dysphagia s/p PEG tube,chronic hypoxic respiratory failure on 2-3L NC, epilepsy, CKD who presented to [facility] 07/14/2022 with exposure of a portion of her baclofen pump. Course complicated by seizure. Baclofen pump exposure: Exposed baclofen pump through R buttock/hip area. Last revised at [facility] with Dr Ramsey (neurosurgry). S/p pump exchanged 07/15/22. Would Cx with pseudamonas and Strep agalactiae. Tissue Cx with Strep agalactiae On Vancomycin and Zoxyn but developed concerns for samra syndrome 07/16/22. Vancomycin changed to Linezolid. ID recommended IV zosyn through 07/23/22. Epilepsy with breakthrough seizure: Home meds Lamictal, Keppra, cannabidiol continued. Has PRN benzos at home, ordered. Seizure 07/19/22 and given Valium. Neuro recommended to continue home AEDs Mcdal-[id number]-[id number] hypotension: Occurred post-op, on Levophed as of 07/16/2022. CT A/P without abscess, hemorrhage. Baseline BP is mildly low, may be fluctuations in response to sedating/pain medications. Improved. Cerebral palsy: Due to anoxic brain injury at . Non-verbal baseline, at times blinks for communication. Spastic with baclofen pump as above. Neurogenic bladder with chronic Sage. Dysphagia: with chronic PEG for all meds and TFs. RD following. Concern for leakage from peg tube. GI followed, ok to resume TF. CKD: Per hx, though normal GFR based on Cr. Chronic hypoxic respiratory failure: At baseline 2-3L home O2. Did not tolerate BIPAP at home. Code status: Full, dicussed on admit DVT Prophylaxis: Lovenox Current living situation: home Expected Disposition: home with home health Estimated discharge date: 07/20/22 if home antibiotics arranged Tried calling family 07/19 Subjective: Patient seen and examined at bedside. Appears to be at baseline. Unable to obtain history as she ismostly non verbal. Discussed with Neurology and Neurosurgery and okay for discharge. ID recommendediV antibiotics. Discussed in MDR. Discussed with house staff - RIJ to be removed and midline to be placed Physical Exam: BP 106/72 Pulse 88 Temp 98.2 F (36.8 C) (Oral) Resp 15 Ht 4' 6 Wt 33.8 kg (74 lb 8.3 oz) SpO2 100% BMI 17.97 kg/m General: NAD, thin, RIJ noted Eyes: EOMI ENT: neck supple Cardiovascular: Regular rate. Respiratory: Clear to auscultation Gastrointestinal: Soft, non tender, peg in place Genitourinary: no suprapubic tenderness Musculoskeletal: No edema. Contracted UE Skin: warm, dry Neuro: Alert. Not oriented. No following commands Psych: Mood appropriate. Current Medications: cholecalciferol (vitamin D3) 2,000 Units Tube Daily cannabidioL 3.5 mL G-tube BID famotidine (PEPCID) injection 20 mg Intravenous BID lamoTRIgine 250 mg Tube BID levETIRAcetam 1,000 mg Tube BID linezolid (ZYVOX) IVPB 600 mg Intravenous Q12H loratadine 10 mg Tube QAM montelukast 10 mg Tube Daily pantoprazole 40 mg Intravenous Daily piperacillin-tazobactam (ZOSYN) extended infusion 3.375 g Intravenous Q8H polyethylene glycol 17 g Tube QAM sodium chloride (PF) 5 mL Intravenous Q8H ISSAC Labs, Imaging and Studies reviewed: Results from last 7 days Lab Units 07/17/22 0510 07/16/22 0710 07/15/22 0331 WBC K/mcL 9.59 10.14 12.17* HGB g/dL 9.7* 10.3* 14.3 HCT % 30.3* 32.4* 47.2* PLT K/mcL 193 190 278 Results from last 7 days Lab Units 07/19/22 0522 07/17/22 0510 07/16/22 2100 07/16/22 0632 07/15/22 0331 SODIUM mmol/L 140 146* -- 142 138 POTASSIUM mmol/L 3.9 2.9* 3.4* 3.4* 4.2 CHLORIDE mmol/L 102 111* -- 108 105 BICARB mmol/L 27 27 -- 26 21 BUN mg/dL 10 3* -- 8 14 CREATININE mg/dL 0.34* 0.25* -- 0.34* 0.29* EGFR mL/min/1.73 m2 140 151 -- 140 146 GLUCOSE mg/dL 139* 90 -- 88 100* CALCIUM mg/dL -- -- -- -- 9.7 Results from last 7 days Lab Units 07/15/22 0948 INR 1.0 * Kemal Barber DO - 07/20/2022 7:41 AM EST Neurosurgery Note: A/P: CP Epilepsy POD 5 S/p Baclofen pump exchange Watch for baclofen withdrawal/overdose Neuro exam: Stable Wound: CDI Imaging: xr abd reviewed Pertinent labs reviewed Vitals reviewed Meds reviewed PT/OT, advance activity Advance diet Blood cx NGTD Wound + for pseudomonas and GBS S: Seen and examined this am. O: Current: BP 106/72 Pulse 88 Temp 98.2 F (36.8 C) (Oral) Resp 15 Ht 4' 6 Wt 33.8 kg (74 lb 8.3 oz) SpO2 100% BMI 17.97 kg/m Lab Results Component Value Date WBC 9.59 07/17/2022 HGB 9.7 (L) 07/17/2022 HCT 30.3 (L) 07/17/2022 MCV 94.7 07/17/2022 PLT 193 07/17/2022 Lab Results Component Value Date NA 140 07/19/2022 K 3.9 07/19/2022 CL 102 07/19/2022 Lab Results Component Value Date INR 1.0 07/15/2022 INR 1.0 11/21/2016 PROTIME 12.4 07/15/2022 PROTIME 13.3 11/21/2016 Neuro: Non verbal baseline, eyes open spont, purposeful but spastic BUE MA 2 Incisions CDI * VANESA Allen - 07/19/2022 8:27 PM EST Care Management Progress Note Date: 07/19/2022 Time: 8:27 PM Patient Name: Claudine Joseph Date of : 1990 Discharge Plan: D/C Disposition: Home Agency/Destination: Home Options Reviewed: Explained services/benefits Reason for Choice: Patient/Family preference, Currently with agency Discharging Transportation Plan: Transportation Type: Auto Discharge Plan Status: [employer] notified that pt's guardian Peg is at bedside and requesting to discuss discharge plans. ASSOCIATE PROFESSOR OF THEOLOGY reviewed chart, met with Peg. Provided update regarding tube feeding supplyfrom [facility] [place]. Peg states that she has multiple people that she care for at home and at some pointthe pt's tube feed order was mixed up with another person's. However, pt was on Promote tube feeding prior to admission and they have a supply of it at home already. She plans to call [facility] [place] tomorrow to review the tube feed needs for each of them and get it straightened out. Peg is able to transport pt home in her wheelchair in an accessible vehicle that was custom made for her. Pt's portable o2 is already with her wheelchair in the room. Peg states that she is ready to take pt home as soon as physician releases her. ASSOCIATE PROFESSOR OF THEOLOGY can call [facility] [place] tomorrow to follow up, however, should not need towait for a delivery of Promote since they have it at home now. [facility] will continue to follow. * Deanna Chambers, - 07/19/2022 7:26 AM EST [facility] Inpatient Progress Note 07/19/2022 Claudine Joseph 1990 [id number] Assessment/Plan: Claudine Joseph is a 32 y.o. female with a history of cerebral palsy s/p baclofen pump, quadriplegia, chronic decubitus ulcers, chronic urinary retention with Sage, dysphagia s/p PEG tube,chronic hypoxic respiratory failure on 2-3L NC, epilepsy, CKD who presented to [facility] 07/14/2022 with exposure of a portion of her baclofen pump. Course complicated by seizure. Baclofen pump exposure: Exposed baclofen pump through R buttock/hip area. Last revised at [facility] with Dr Ramsey (neurosurgry). S/p pump exchanged 07/15/22. Would Cx with pseudamonas and Srep agalactiae. Tissue Cx with Strep agalactiae On Vancomycin and Zoxyn but developed concerns for samra ommumizz27/17/22. Vancomycin changed to Linezolid. ID following, agreed with IV Zosyn and Linezolid. Epilepsy with breakthrough seizure: Home meds Lamictal, Keppra, cannabidiol continued. Has PRN benzos at home, ordered. Seizure 07/19/22 and given Valium. Neuro consulted. Fdzrf-[id number] hypotension: Occurred post-op, on Levophed as of 07/16/2022. CT A/P without abscess, hemorrhage. Baseline BP is mildly low, may be fluctuations in response to sedating/pain medications. Improved. Cerebral palsy: Due to anoxic brain injury at . Non-verbal baseline, at times blinks for communication. Spastic with baclofen pump as above. Neurogenic bladder with chronic Sage. Dysphagia: with chronic PEG for all meds and TFs. RD following. Concern for leakage from peg tube. GI followed, ok to resume TF. CKD: Per hx, though normal GFR based on Cr. Chronic hypoxic respiratory failure: At baseline 2-3L home O2. Did not tolerate BIPAP at home. Code status: Full, dicussed on admit DVT Prophylaxis: Lovenox Disposition Current living situation: home Expected Disposition: home Estimated discharge date: TBD Tried calling family 07/19 Subjective: No acute events overnight. However, this morning, the patient had a short seizure. Has history of difficult to control epilepsy. Patient examined afterwards and was doing well. HR elevated but otherwise back to baseline. Discussed with RN- had not had morning meds yet. Discussed with NS YUDY. Physical Exam: BP 98/71 (BP Location: Right arm, Patient Position: Lying) Pulse (!) 112 Temp 98.6 F (37 C) (Oral) Resp (!) 21 Ht 4' 6 Wt 33.8 kg (74 lb 8.3 oz) SpO2 97% BMI 17.97 kg/m General: NAD, thin Eyes: EOMI ENT: neck supple Cardiovascular: Regular rate. Respiratory: Clear to auscultation Gastrointestinal: Soft, non tender, peg in place Genitourinary: no suprapubic tenderness Musculoskeletal: No edema. Contracted UE Skin: warm, dry Neuro: Alert. Not oriented. No following commands Psych: Mood appropriate. Current Medications: cholecalciferol (vitamin D3) 2,000 Units Tube Daily cannabidioL 3.5 mL G-tube BID famotidine (PEPCID) injection 20 mg Intravenous BID lamoTRIgine 250 mg Tube BID levETIRAcetam 1,000 mg Tube BID linezolid (ZYVOX) IVPB 600 mg Intravenous Q12H loratadine 10 mg Tube QAM montelukast 10 mg Tube Daily pantoprazole 40 mg Intravenous Daily piperacillin-tazobactam (ZOSYN) extended infusion 3.375 g Intravenous Q8H polyethylene glycol 17 g Tube QAM sodium chloride (PF) 5 mL Intravenous Q8H ISSCA Labs, Imaging and Studies reviewed: Results from last 7 days Lab Units 07/17/22 0510 07/16/22 0710 07/15/22 0331 WBC K/mcL 9.59 10.14 12.17* HGB g/dL 9.7* 10.3* 14.3 HCT % 30.3* 32.4* 47.2* PLT K/mcL 193 190 278 Results from last 7 days Lab Units 07/19/22 0522 07/17/22 0510 07/16/22 2100 07/16/22 0632 07/15/22 0331 SODIUM mmol/L 140 146* -- 142 138 POTASSIUM mmol/L 3.9 2.9* 3.4* 3.4* 4.2 CHLORIDE mmol/L 102 111* -- 108 105 BICARB mmol/L 27 27 -- 26 21 BUN mg/dL 10 3* -- 8 14 CREATININE mg/dL 0.34* 0.25* -- 0.34* 0.29* EGFR mL/min/1.73 m2 140 151 -- 140 146 GLUCOSE mg/dL 139* 90 -- 88 100* CALCIUM mg/dL -- -- -- -- 9.7 Results from last 7 days Lab Units 07/15/22 0948 INR 1.0 * Kemal Barber DO - 07/19/2022 6:51 AM EST Neurosurgery Note: A/P: CP Epilepsy POD 4 S/p Baclofen pump exchange Watch for baclofen withdrawal/overdose Neuro exam: Stable Wound: CDI Imaging: xr abd reviewed Pertinent labs reviewed Vitals reviewed Meds reviewed PT/OT, advance activity Advance diet Blood cx NGTD Wound + for pseudomonas and GBS S: Seen and examined this am. O: Current: BP 98/71 (BP Location: Right arm, Patient Position: Lying) Pulse (!) 112 Temp 98.6 F (37 C) (Oral) Resp (!) 21 Ht 4' 6 Wt 33.8 kg (74 lb 8.3 oz) SpO2 97% BMI 17.97 kg/m Lab Results Component Value Date WBC 9.59 07/17/2022 HGB 9.7 (L) 07/17/2022 HCT 30.3 (L) 07/17/2022 MCV 94.7 07/17/2022 PLT 193 07/17/2022 Lab Results Component Value Date NA 140 07/19/2022 K 3.9 07/19/2022 CL 102 07/19/2022 Lab Results Component Value Date INR 1.0 07/15/2022 INR 1.0 11/21/2016 PROTIME 12.4 07/15/2022 PROTIME 13.3 11/21/2016 Neuro: Non verbal baseline, eyes open spont, purposeful but spastic BUE MA 2 Incisions CDI * Marcelino Lofton CNP - 07/18/2022 4:26 PM EST GASTROENTEROLOGY/HEPATOLOGY DAILY PROGRESS NOTE 1 Patient Name: Claudine Joseph Encounter date: 07/18/22 MR #: [id number] Assessment/Plan: S/P percutaneous endoscopic gastrostomy (PEG) tube placement (HCC) Assessment & Plan Ms. Claudine Joseph is a 32 y.o. 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 This was exchanged 07/15 by neurosurgery. We have been consulted about leakage from PEG site. 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 This was closed by [facility] November 2021 with an OTSC clip and suture. She has a PEG placed at a new site that has been functioning well. Leakage was noted at prior fistula site. Mother reports that since November she has still has some persistent leakage at the prior PEG site. They see a local surgeon in [place] who has been very happy with overall closure. She still has had some ongoing leakage but this has improved with time. Mother typically has been using some Silvercel dressing and gauze. She does continuous TF with Promote (lactose intolerance). No concerns at home. 07/17 in am: PEG tube flushed with water and no leakage noted from prior fistula site. Tube feeds resumed 07/18: No further leaking noted at prior gastrocutaneous fistula site after resuming TF last night.GI will sign off. Please recall with any further needs. Chief Complaint: Leaking prior gastrostomy site. Subjective: Pt resting in bed. Nursing staff bedside. PEG flushed with no leakage noted. Labs: Results from last 7 days Lab Units 07/17/22 0510 07/16/22 0710 07/15/22 0331 WBC K/mcL 9.59 10.14 12.17* HGB g/dL 9.7* 10.3* 14.3 HCT % 30.3* 32.4* 47.2* PLT K/mcL 193 190 278 Results from last 7 days Lab Units 07/17/22 0510 07/16/22 2100 07/16/22 0632 07/15/22 0331 SODIUM mmol/L 146* -- 142 138 POTASSIUM mmol/L 2.9* 3.4* 3.4* 4.2 CHLORIDE mmol/L 111* -- 108 105 BUN mg/dL 3* -- 8 14 CREATININE mg/dL 0.25* -- 0.34* 0.29* CALCIUM mg/dL -- -- -- 9.7 GLUCOSE mg/dL 90 -- 88 100* Physical Examination: Temp: [97.6 F (36.4 C)-99.6 F (37.6 C)] 98.1 F (36.7 C) Heart Rate: [82-115] 88 Resp: [15-23] 22 BP: (80-103)/(52-70) 80/52 CONSTITUTIONAL: Appropriate attention to grooming, normal body habitus, NAD ABDOMEN: Flat, negative hepatosplenomegaly, soft and non-tender. Healing prior fistula site (pinhole). No leakage from Gtube. LLQ wound with gauze/bandage over SKIN: No jaundice Results/Medications Reviewed 07/18/22 4:26 PM: Laboratory, Medications, and Transcriptions Marcelino Lofton CNP * Enid Vasquez RN - 07/18/2022 1:19 PM EST Care Management Consult Note Date: 07/18/2022 Time: 1:19 PM Patient Name: Claudine Joseph Date of : 1990 Fax[facility] new tube feed, two required forms for [facility] Agency unable to place order until Wednesday for possible delivery to patients home on Wednesday. [facility] liaison Abe fax [phone]. * Deanna Chambers, DO - 07/18/2022 7:32 AM EST [facility] Inpatient Progress Note 07/18/2022 Claudine Joseph 1990 [id number] Assessment/Plan: Claudine Joseph is a 32 y.o. female with a history of cerebral palsy s/p baclofen pump, quadriplegia, chronic decubitus ulcers, chronic urinary retention with Sage, dysphagia s/p PEG tube,chronic hypoxic respiratory failure on 2-3L NC, epilepsy, CKD who presented to [facility] 07/14/2022 with exposure of a portion of her baclofen pump. Baclofen pump exposure: Exposed baclofen pump through R buttock/hip area. Last revised at [facility] with Dr Ramsey (neurosurgry). S/p pump exchanged 07/15/22. Would Cx with pseudamonas and Srep agalactiae. Tissue Cx with Strep agalactiae On Vancomycin and Zoxyn but developed concerns for samra amveknvf64/17/22. Vancomycin changed to Linezolid. ID following, agreed with IV Zosyn and Linezolid. Tojav-lu-iotbhuc hypotension: Occurred post-op, on Levophed as of 07/16/2022. CT A/P without abscess, hemorrhage. Baseline BP is mildly low, may be fluctuations in response to sedating/pain medications. Improved. Cerebral palsy: Due to anoxic brain injury at . Non-verbal baseline, at times blinks for communication. Spastic with baclofen pump as above. Neurogenic bladder with chronic Sage. Dysphagia: with chronic PEG for all meds and TFs. RD following. Concern for leakage from peg tube. GI followed, ok to resume TF. CKD: Per hx, though normal GFR based on Cr. Epilepsy: Home meds Lamictal, Keppra, cannabidiol continued. Has PRN benzos at home, ordered. Chronic hypoxic respiratory failure: At baseline 2-3L home O2. Did not tolerate BIPAP at home. Code status: Full, dicussed on admit DVT Prophylaxis: Lovenox Disposition Current living situation: home Expected Disposition: home Estimated discharge date: possibly 07/20/22 Family updated: on admit 07/14/22 Subjective: No acute events overnight. Patient remains the same. Discussed with RN- no leakage from peg. Physical Exam: BP (!) 92/59 (BP Location: Right arm, Patient Position: Lying) Pulse 82 Temp 97.6 F (36.4 C) (Oral) Resp (!) 23 Ht 4' 6 Wt 33.8 kg (74 lb 8.3 oz) SpO2 98% BMI 17.97 kg/m General: NAD, thin Eyes: EOMI ENT: neck supple Cardiovascular: Regular rate. Respiratory: Clear to auscultation Gastrointestinal: Soft, non tender, peg in place Genitourinary: no suprapubic tenderness Musculoskeletal: No edema. Contracted UE Skin: warm, dry Neuro: Alert. Not oriented. No following commands Psych: Mood appropriate. Current Medications: cholecalciferol (vitamin D3) 2,000 Units Tube Daily cannabidioL 3.5 mL G-tube BID famotidine (PEPCID) injection 20 mg Intravenous BID lamoTRIgine 250 mg Tube BID levETIRAcetam 1,000 mg Tube BID linezolid (ZYVOX) IVPB 600 mg Intravenous Q12H loratadine 10 mg Tube QAM montelukast 10 mg Tube Daily pantoprazole 40 mg Intravenous Daily piperacillin-tazobactam (ZOSYN) extended infusion 3.375 g Intravenous Q8H polyethylene glycol 17 g Tube QAM sodium chloride (PF) 5 mL Intravenous Q8H ISSAC Labs, Imaging and Studies reviewed: Results from last 7 days Lab Units 07/17/22 0510 07/16/22 0710 07/15/22 0331 WBC K/mcL 9.59 10.14 12.17* HGB g/dL 9.7* 10.3* 14.3 HCT % 30.3* 32.4* 47.2* PLT K/mcL 193 190 278 Results from last 7 days Lab Units 07/17/22 0510 07/16/22 2100 07/16/22 0632 07/15/22 0331 SODIUM mmol/L 146* -- 142 138 POTASSIUM mmol/L 2.9* 3.4* 3.4* 4.2 CHLORIDE mmol/L 111* -- 108 105 BICARB mmol/L 27 -- 26 21 BUN mg/dL 3* -- 8 14 CREATININE mg/dL 0.25* -- 0.34* 0.29* EGFR mL/min/1.73 m2 151 -- 140 146 GLUCOSE mg/dL 90 -- 88 100* CALCIUM mg/dL -- -- -- 9.7 Results from last 7 days Lab Units 07/15/22 0948 INR 1.0 * Kemal Barber DO - 07/18/2022 6:43 AM EST Neurosurgery Note: A/P: CP Epilepsy POD 3 S/p Baclofen pump exchange Watch for baclofen withdrawal/overdose Neuro exam: Stable Wound: CDI Imaging: xr abd reviewed Pertinent labs reviewed Vitals reviewed Meds reviewed PT/OT, advance activity Advance diet F/u intra op cx, maintain on vanc Blood cx NGTD Wound + for pseudomonas Drain dced S: Seen and examined this am. O: Current: BP 102/66 (BP Location: Right arm, Patient Position: Lying) Pulse 87 Temp 99.3 F (37.4 C) (Axillary) Resp 15 Ht 4' 6 Wt 33.8 kg (74 lb 8.3 oz) SpO2 98% BMI 17.97 kg/m Lab Results Component Value Date WBC 9.59 07/17/2022 HGB 9.7 (L) 07/17/2022 HCT 30.3 (L) 07/17/2022 MCV 94.7 07/17/2022 PLT 193 07/17/2022 Lab Results Component Value Date NA 146 (H) 07/17/2022 K 2.9 (L) 07/17/2022 CL 111 (H) 07/17/2022 Lab Results Component Value Date INR 1.0 07/15/2022 INR 1.0 11/21/2016 PROTIME 12.4 07/15/2022 PROTIME 13.3 11/21/2016 Neuro: Non verbal, eyes open to stim, purposeful but spastic BUE MA 2 * Lisbet Castellanos - 07/17/2022 5:38 PM EST Spiritual Care Progress Note Completed by: Lisbet Castellanos Person(s) Present During this Visit: Patient, Mother Time Spent in Direct Patient Care: 75 Narrative: This handyperson engaged family and provided emotional/spiritual care and support in accordance with their traditions and norms. Hazardous Materials Tanker Driver informed family of the on-going availability of pastoral care resources. Pastoral Care team will remain available to support patient and family PRN. Patients Response to Pastoral Care: Other (see comment) (Visit with Pt mother. Pt has cerebral palsy.) Planning for Future Visits: PRN, Pt aware to contact Hazardous Materials Tanker Driver as needed Patient's Spiritual Needs Assessment Sources of Connection Daughter, Son Beliefs and Practices Attends Restoration Services, Experience of [place]/Divine Favor, Prayer Image of the Divine Comforter, Creator, Healer, Guide, Gandhi, Source of Life, Source of Meaning,Source of Peace, Source of Strength Role of Divine in Patient's Illness Divine is Source of Support Spiritual Wellness - Activities and Resources Angelia Community, Prayer, Spiritual Practices Grief Assessment Expressed / Stated Feelings Expressed Gratitude, Expressed Hope, Confident, Hopeful Attitude Towards Own Illness Confidence, Hope Understanding of Patients Coping Mechanisms Prayer/Spiritual Practices, Trust in God/Higher Power Spiritual Diagnosis Awareness of the Sacred, Spiritual Distress, Spiritual Support and Connection Facilitated Interventions Active Listening, Affirmation, [place], Explained Role of the Hazardous Materials Tanker Driver, Explored thoughts/feelings associated with current hospitalization, Prayer, Self-Care, Use of Storytelling Spiritual and Emotional Outcomes Encouraged, Gratitude, Spiritual Comfort, Story shared or processed, Reduction in Distress, Angelia Strengthened, Appreciative Resources Provided Bereavement Resources Spiritual Plan of Care Patient's Restoration Needs Assessment Restoration Connection Restoration Home Jewish Affiliation Local Anabaptism Name Restoration Resources Restoration Rituals Restoration Materials Provided Expressed Outcomes Family / Caregiver Needs Assessment Relationship to Patient Mother Affect at Time of Visit Cooperative, Calm, Interactive, Supportive, Talkative Emotions Expressed During Visit Encouraged, Other (see comments) (Enthusiastic) Expressed Concerns Regarding Illness Coping with Illness, Discerning Patient's Wishes, Emotional/Spiritual Fatigue, Patient's Diagnosis Sources of Hope and Strength Spiritual/Restoration Practices Support and Participation in Care Active Grief Assessment Accepting, Appropriately Coping Spiritual Assessment Aware of Patient's Mortality Interventions with Family / Friend Aware of Patient's Mortality Outcomes with Family / Friend Affirmation, Hazardous Materials Tanker Driver Support, Empathic Listening, Explored emotionalneeds & resources, Explored Relational Needs & Resources, Facilitated Story-Telling, Provided Comfort, Provided Emotional Support, Provided Prayer, Provided Spiritual Support Genaro Frausto MA, MBA Staff Hazardous Materials Tanker Driver, [place] [facility] [phone] * Bárbara Nghia ASSOCIATE PROFESSOR OF THEOLOGY DIRECTOR OF HEALTH EDUCATION - 07/17/2022 1:41 PM EST Care Management Progress Note Date: 07/17/2022 Time: 1:41 PM Patient Name: Claudine Joseph Date of : 1990 Discharge Plan Status: ASSOCIATE PROFESSOR OF THEOLOGY called and LVM w/ pt's mother/guardian, Peg, requesting call back. ASSOCIATE PROFESSOR OF THEOLOGY by pt's room several times throughout the workday, no visitors at bedside. Per chart review, in 2020 a social services analyst through [facility] Board of was listed asa reference. ASSOCIATE PROFESSOR OF THEOLOGY called Rhonda (ph: [phone]) requesting call back to determine if she is still working w/ pt. Per chart review, in 2019 pt was [facility] w/ [facility]. ASSOCIATE PROFESSOR OF THEOLOGY called [facility], pt is no longer current w/ their agency. [facility] no longer provides homeTF services. ASSOCIATE PROFESSOR OF THEOLOGY attempted to call pt's PCP, but office is closed. Charge and bedside RN aware to notify ASSOCIATE PROFESSOR OF THEOLOGY if they notice visitors at bedside. Will continue to follow. Addendum 3:02pm ASSOCIATE PROFESSOR OF THEOLOGY attempted to call Peg for second time without success. No visitors at bedside. Contact located in [facility] records for pt's sister (Charissa Chan, ph: [phone]). ASSOCIATE PROFESSOR OF THEOLOGY called and LVM requesting call back. ASSOCIATE PROFESSOR OF THEOLOGY also called [facility] and pt is not current. ASSOCIATE PROFESSOR OF THEOLOGY called and LVM w/ [facility] inquiring if pt is current w/ services. Addendum 3:50pm ASSOCIATE PROFESSOR OF THEOLOGY into see ptPeg at bedside. Peg confirmed pt has all needed DME. Peg will provide transportation upon discharge. Pt current w/ [facility] for 86hrs/week (shannanVic, ph: [phone]). Pt current w/ [facility] for home Tfs. ASSOCIATE PROFESSOR OF THEOLOGY called Abe [facility]enes (ph: [phone], f: [phone]). Prior to admission, pt was current w/ Ensure Plus, 1400 larry/day. Current diet order is Promote @ goal of 45 ml/hr to provide 1080kcal, 68g protein, 906ml h2O. ASSOCIATE PROFESSOR OF THEOLOGY confirmed w/ hospitalist that this will be what pt will discharge on. Abe explained they do not have Promote formula in-stock and the agency is unable to place orderuntil Wednesday for possible delivery to pt's home on Wednesday. Will need home tube feed order placed, signed by hospitalist, and faxed to [phone]. Abe also faxing form that needs signed by hospitalist and returned w/ TF order for insurance purposes. Addendum 4:07pm Peg confirmed pt is linked w/ Rhonda AVILA w/ the [facility] Board of DD (ph: [phone]). * Elodia Altamirano PA-C - 07/17/2022 12:17 PM EST GASTROENTEROLOGY/HEPATOLOGY DAILY PROGRESS NOTE 1 Patient Name: Claudine Joseph Encounter date: 07/17/22 MR #: [id number] Assessment/Plan: S/P percutaneous endoscopic gastrostomy (PEG) tube placement (HCC) Assessment & Plan Ms. Claudine Joseph is a 32 y.o. 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 This was exchanged 11/ 16 by neurosurgery. We have been consulted about leakage from PEG site. 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 This was closed by [facility] November 2021 with an OTSC clip and suture. She has a PEG placed at a new site that has been functioning well. Leakage was noted at prior fistula site. Mother reports that since November she has still has some persistent leakage at the prior PEG site. They see a local surgeon in [place] who has been very happy with overall closure. She still has had some ongoing leakage but this has improved with time. Mother typically has been using some Silvercel dressing and gauze. She does continuous TF with Promote (lactose intolerance). No concerns at home. 07/17 in am: PEG tube flushed with water and no leakage noted from prior fistula site. Plan: Okay to resume tube feeds at this time and monitor for further leakage. Chief Complaint: Leaking prior gastrostomy site. Subjective: Pt resting in bed. Nursing staff bedside. PEG flushed with no leakage noted. Labs: Results from last 7 days Lab Units 07/17/22 0510 07/16/22 0710 07/15/22 0331 WBC K/mcL 9.59 10.14 12.17* HGB g/dL 9.7* 10.3* 14.3 HCT % 30.3* 32.4* 47.2* PLT K/mcL 193 190 278 Results from last 7 days Lab Units 07/17/22 0510 07/16/22 2100 07/16/22 0632 07/15/22 0331 SODIUM mmol/L 146* -- 142 138 POTASSIUM mmol/L 2.9* 3.4* 3.4* 4.2 CHLORIDE mmol/L 111* -- 108 105 BUN mg/dL 3* -- 8 14 CREATININE mg/dL 0.25* -- 0.34* 0.29* CALCIUM mg/dL -- -- -- 9.7 GLUCOSE mg/dL 90 -- 88 100* Physical Examination: Temp: [98 F (36.7 C)-99.6 F (37.6 C)] 98 F (36.7 C) Heart Rate: [78-121] 109 Resp: [18-23] 23 BP: (78-99)/(53-74) 97/73 CONSTITUTIONAL: Appropriate attention to grooming, normal body habitus, NAD ABDOMEN: Flat, negative hepatosplenomegaly, soft and non-tender. Healing prior fistula site (pinhole). No leakage from Gtube. LLQ wound with gauze/bandage over SKIN: No jaundice Results/Medications Reviewed 07/17/22 12:17 PM: Laboratory, Medications, and Transcriptions Elodia Altamirano PA-C * Kemal Barber DO - 07/17/2022 10:52 AM EST Neurosurgery Note: A/P: CP Epilepsy POD 2 S/p Baclofen pump exchange Watch for baclofen withdrawal/overdose Neuro exam: Stable Wound: CDI Drains: 5 out cc/12 hr shift Imaging: xr abd reviewed Pertinent labs reviewed Vitals reviewed Meds reviewed PT/OT, advance activity Advance diet F/u intra op cx, maintain on vanc Blood cx NGTD Wound + for pseudomonas S: Seen and examined this am. O: Current: BP 94/61 (BP Location: Right arm, Patient Position: Lying) Pulse 87 Temp 98.1 F (36.7 C) (Axillary) Resp (!) 20 Ht 4' 6 Wt 33.8 kg (74 lb 8.3 oz) SpO2 100% BMI 17.97 kg/m Lab Results Component Value Date WBC 9.59 07/17/2022 HGB 9.7 (L) 07/17/2022 HCT 30.3 (L) 07/17/2022 MCV 94.7 07/17/2022 PLT 193 07/17/2022 Lab Results Component Value Date NA 146 (H) 07/17/2022 K 2.9 (L) 07/17/2022 CL 111 (H) 07/17/2022 Lab Results Component Value Date INR 1.0 07/15/2022 INR 1.0 11/21/2016 PROTIME 12.4 07/15/2022 PROTIME 13.3 11/21/2016 Neuro: Non verbal, eyes open to stim, purposeful but spastic BUE MA 2 * Deanna Chambers DO - 07/17/2022 7:13 AM EST [facility] 07/17/2022 Claudine Joseph 1990 [id number] Assessment/Plan: Claudine Joseph is a 32 y.o. female with a history of cerebral palsy s/p baclofen pump, quadriplegia, chronic decubitus ulcers, chronic urinary retention with Sage, dysphagia s/p PEG tube,chronic hypoxic respiratory failure on 2-3L NC, epilepsy, CKD who presented to [facility] 07/14/2022 with exposure of a portion of her baclofen pump. Baclofen pump exposure: Exposed baclofen pump through R buttock/hip area. Last revised at [facility] with Dr Ramsey (neurosurgry). S/p pump exchanged 07/15/22. Would Cx with pseudamonas and Srep agalactiae. Tissue Cx with Strep agalactiae On Vancomycin and Zoxyn but developed concerns for samra [id number]/22. Vancomycin changed to Linezolid. ID following, agreed with IV Zosyn and Linezolid. Cyusa-df-atohfog hypotension: Occurred post-op, on Levophed as of 07/16/2022. CT A/P without abscess, hemorrhage. Baseline BP is mildly low, may be fluctuations in response to sedating/pain medications. Improved. Cerebral palsy: Due to anoxic brain injury at . Non-verbal baseline, at times blinks for communication. Spastic with baclofen pump as above. Neurogenic bladder with chronic Sage. Dysphagia: with chronic PEG for all meds and TFs. RD following. Concern for leakage from peg tube. GI following. CKD: Per hx, though normal GFR based on Cr. Epilepsy: Home meds Lamictal, Keppra, cannabidiol continued. Has PRN benzos at home, ordered. Chronic hypoxic respiratory failure: At baseline 2-3L home O2. Did not tolerate BIPAP at home. Code status: Full, dicussed on admit DVT Prophylaxis: Lovenox Disposition Current living situation: home Expected Disposition: home Estimated discharge date: TBD Family updated: on admit 07/14/22 Subjective: Patient new to me today. Alert but does not follow commands. Overnight, concerns for samra syndrome from vancomycin and patient placed on linezolid. Discussed with ID resident-plan for IV linezolid and Zosyn given positive cultures. Physical Exam: BP 99/63 (BP Location: Right arm, Patient Position: Lying) Pulse 99 Temp 99.1 F (37.3 C) Resp(!) 21 Ht 4' 6 Wt 33.8 kg (74 lb 8.3 oz) SpO2 100% BMI 17.97 kg/m General: NAD, thin Eyes: EOMI ENT: neck supple Cardiovascular: Regular rate. Respiratory: Clear to auscultation Gastrointestinal: Soft, non tender, peg in place Genitourinary: no suprapubic tenderness Musculoskeletal: No edema. Contracted UE Skin: warm, dry Neuro: Alert. Not oriented. No following commands Psych: Mood appropriate. Current Medications: cholecalciferol (vitamin D3) 2,000 Units Tube Daily cannabidioL 3.5 mL G-tube BID famotidine (PEPCID) injection 20 mg Intravenous BID lamoTRIgine 250 mg Tube BID levETIRAcetam 1,000 mg Tube BID linezolid (ZYVOX) IVPB 600 mg Intravenous Q12H loratadine 10 mg Tube QAM montelukast 10 mg Tube Daily pantoprazole 40 mg Intravenous Daily piperacillin-tazobactam (ZOSYN) extended infusion 3.375 g Intravenous Q8H polyethylene glycol 17 g Tube QAM sodium chloride (PF) 5 mL Intravenous Q8H ISSAC Labs, Imaging and Studies reviewed: Results from last 7 days Lab Units 07/17/22 0510 07/16/22 0710 07/15/22 0331 WBC K/mcL 9.59 10.14 12.17* HGB g/dL 9.7* 10.3* 14.3 HCT % 30.3* 32.4* 47.2* PLT K/mcL 193 190 278 Results from last 7 days Lab Units 07/17/22 0510 07/16/22 2100 07/16/22 0632 07/15/22 0331 SODIUM mmol/L 146* -- 142 138 POTASSIUM mmol/L 2.9* 3.4* 3.4* 4.2 CHLORIDE mmol/L 111* -- 108 105 BICARB mmol/L 27 -- 26 21 BUN mg/dL 3* -- 8 14 CREATININE mg/dL 0.25* -- 0.34* 0.29* EGFR mL/min/1.73 m2 151 -- 140 146 GLUCOSE mg/dL 90 -- 88 100* CALCIUM mg/dL -- -- -- 9.7 Results from last 7 days Lab Units 07/15/22 0948 INR 1.0 * Ayleen Taylor RN - 07/16/2022 1:00 PM EST Anesthesia Progress Note 1 Day Post-Op Procedure(s): REMOVAL OF RIGHT INTRATHECAL PUMP, CATHETER WITH REPLACEMENT ON LEFT SIDE CVC Triple Lumen 07/16/22 Non-tunneled Right Internal jugular (Active) Reassessment Unchd 07/16/22 1200 Site Assessment Clean;Dry;Intact 07/16/22 0800 Proximal Lumen Status Blood return noted 07/16/22 0800 Medial 1 Lumen Status Blood return noted 07/16/22 0800 Distal Lumen Status Blood return noted 07/16/22 0800 Line Intervention Flushed;Cap changed 07/16/22 0800 Dressing Type Transparent 07/16/22 0800 Dressing Status Clean;Dry;Intact 07/16/22 0800 Line Necessity Reviewed? Y 07/16/22 0800 Line Necessity Yes, meets criteria 07/16/22 0800 Line Necessity Reviewed With NCC 07/16/22 0800 Number of days: 0 Assessment / Plan Comment: Patient unavailable at the time of post Anesthesia visit. Charting reviewed with no acute events noted related to Anesthesia. Temp: [36.5 C-37.6 C] 37.1 C Heart Rate: [55-120] 93 Resp: [12-45] 22 BP: (79-139)/(50-86) 86/61 SpO2: [76 %-100 %] 100 % * Yoly Tenorio RN - 07/16/2022 12:51 PM EST WOC/ET RN consult/evaluation note: Evaluated Claudine Joseph for wound located on right buttock. Description of wound/Recommendation: Responding to a wound care consult for assessment of her rightbuttock. Upon assessment her skin is red and denuded. Recommend Z guard 2-3 time a day. She has a healed pressure injury to the ischial tuberosity. Continue Q 2 hour turns. Her heels were assessed, skin is blanchable and found to be without redness or breakdown. Wound visit for auto populated consult for suspected extravasation. In to see pt, no wounds. Thank you for the consult. Orders have been place. These orders fall within the realm of bedside nursing. I will sign off at this time. Please do not hesitate to re consult with any further issues orconcerns. Raimundo Score: 13 Recommend pressure reduction techniques including frequent repositioning, minimizing elevation of the head of the bed, and encouraging patient to be out of bed as much as possible (use pressure reducing chair cushion when sitting in chair) unless medically contraindicated. Surface: Low air loss Wound documentation : 07/16/22 1200 Wound 07/15/22 Buttock;Gluteal fold Right Date First Assessed/Time First Assessed: 07/15/222114 Present on Hospital Admission: Yes Location:Buttock;Gluteal fold Wound Location Orientation: Right DRESSING: NOY Dressing Status Open to air Drainage Amount None Odor None Wound Bed Characteristics Fragile;Red Makenzie-wound Assessment Moist Treatments Skin barrier cream/paste Cleansed Soap and water RN notified of assessment and plan. Yoly Tenorio RN * VANESA Rodriguez-S - 07/16/2022 10:34 AM EST Care Management Consult Note Date: 07/16/2022 Time: 11:48 AM Patient Name: Claudine Joseph Date of : 1990 Reason for Consult: Discharge Needs Chronic Disease Management Transition of Care Discharge Plan: TBD Discharge Plan Status: Consult received and chart reviewed. No family in the room. Attempted to reach mother/Guardian (Peg) on the two numbers listed on the Facesheet without success. The first number ([phone]) immediately went to [place] and message was left with purpose of call and asking for a callback. The second number ([phone]), a woman answered and said that ASSOCIATE PROFESSOR OF THEOLOGY had the wrong number. Chart review will be used for this note's information. Pt presented to [facility] with mother for concerns regarding baclofen pump infection. Pt's prior medical history includes: anoxic brain injury, cerebral palsy, quadriplegia, chronic decubitus ulcers, chronic urinary retention with Sage, dysphagia s/p PEG tube, chronic hypoxic respiratory failure on 2-3LNC, CKD, and epilepsy. Note from ED CM from 09/09/2021 indicates pt uses [facility] (f: [phone]) or home medications. At that time, the pt's primary caregiver/mother/Guardian Peg was very comfortable with administering her OPAT medications. Also by hx (09/23/2020), pt has a hx of wound vac for decubitus ulcers. Phone call to pt's PCP, Marielle Duque MD with [facility] ([phone]) and message left with Nurse's Line in order to obtain information about current HHC/Infusion Pharmacy. Will continue to follow. Discharging Transportation Plan: TBD, pt is wheelchair-bound. Assessment and Background Information: Living Arrangements: Parent Support Systems: Parent Type of Residence: Private residence Prior to Admission Home Care Services: Yes Type of Current Home Care Services: Home health care Current Agency Name: (Waiting to hear back from mother/PCP) * Stone Faria MD - 07/16/2022 8:00 AM EST [facility]/16/2022 Claudine Joseph 1990 [id number] Assessment/Plan: Claudine Joseph is a 32 y.o. female with a history of cerebral palsy s/p baclofen pump, quadriplegia, chronic decubitus ulcers, chronic urinary retention with Sage, dysphagia s/p PEG tube,chronic hypoxic respiratory failure on 2-3L NC, epilepsy, CKD who presented to [facility] 07/14/2022 with exposure of a portion of her baclofen pump. Baclofen pump exposure: Exposed baclofen pump through R buttock/hip area. No obvious signs of infection or drainage. Last revised at [facility] with Dr Ramsey (neurosurgry). Neurosurgery following, pump exchanged 07/15/22. Monitoring for baclofen withdrawal symptoms. Continued empiric vancomycin. Follow-up intra-op cultures, so far negative Gram stain. Olxng-lj-inssamc hypotension: Occurred post-op, on Levophed as of 07/16/2022. CT A/P without abscess, hemorrhage. Baseline BP is mildly low, may be fluctuations in response to sedating/pain medications. Empiric vanco as above, monitor. Cerebral palsy: Due to anoxic brain injury at . Non-verbal baseline, at times blinks for communication. Spastic with baclofen pump as above. Neurogenic bladder with chronic Sage. Dysphagia withchronic PEG for all meds and TFs. RD consulted. CKD: Per hx, though normal GFR based on Cr. Epilepsy: Home meds Lamictal, Keppra, cannabidiol continued. Has PRN benzos at home, ordered. Chronic hypoxic respiratory failure: At baseline 2-3L home O2. Did not tolerate BIPAP at home. Code status: Full, dicussed on admit DVT Prophylaxis: Lovenox Disposition Current living situation: home Expected Disposition: home Estimated discharge date: TBD Family updated: on admit 07/14/22 Subjective/Interval History: Today, I personally reviewed all new inpatient labs, vitals, radiology imaging, diagnostic tests, and notes from other providers. Relevant details summarized in my assessment/plan and objective data portion. Pump changed out yesterday, admitted to [facility] overnight to monitor for baclofen withdrawal. Hypotensive this AM, sent for CT A/P to r/o abscess, bleed. Images personally reviewed, no obvious abscess, no obvious IP bleed, bladder wall thickening. Started on Levophed per [facility]. Off Levophed by the time Isaw her after lunch. No family at bedside. Pt at baseline mental status. Physical Exam: BP 95/69 Pulse (!) 101 Temp 98.8 F (37.1 C) (Axillary) Resp (!) 19 Ht 4' 6 Wt 33.8 kg (74 lb 8.3 oz) SpO2 100% BMI 17.97 kg/m General: No acute distress Eyes: Extraocular movements intact ENT: Neck supple, oral mucosa moist without lesions Cardiovascular: Regular rate and rhythm Respiratory: Clear to auscultation Gastrointestinal: Mildly distended, non-tender Genitourinary: No suprapubic tenderness. SPC in place with clear yellow urine Musculoskeletal: No peripheral edema. Chronic spasticity and quadriplegia Skin: Warm, dry. Neuro: Alert, non-verbal baseline Psych: Mood flat Current Medications: cholecalciferol (vitamin D3) 2,000 Units Tube Daily cannabidioL 3.5 mL G-tube BID famotidine (PEPCID) injection 20 mg Intravenous BID lamoTRIgine 250 mg Tube BID levETIRAcetam 1,000 mg Tube BID loratadine 10 mg Tube QAM montelukast 10 mg Tube Daily pantoprazole 40 mg Intravenous Daily piperacillin-tazobactam (ZOSYN) extended infusion 3.375 g Intravenous Q8H piperacillin-tazobactam (ZOSYN) IV 4.5 g Intravenous Once polyethylene glycol 17 g Tube QAM potassium bicarbonate 50 mEq Tube Once potassium chloride 40 mEq Intravenous Once sodium chloride (PF) 5 mL Intravenous Q8H ISSAC sodium chloride 0.9% 500 mL Intravenous Once vancomycin 750 mg Intravenous Q8H [START ON 07/17/2022] vancomycin 750 mg Intravenous Q12H Labs, Imaging and Studies reviewed: Results from last 7 days Lab Units 07/16/22 0710 07/15/22 0331 WBC K/mcL 10.14 12.17* HGB g/dL 10.3* 14.3 HCT % 32.4* 47.2* PLT K/mcL 190 278 Results from last 7 days Lab Units 07/16/22 0632 07/15/22 0331 SODIUM mmol/L 142 138 POTASSIUM mmol/L 3.4* 4.2 CHLORIDE mmol/L 108 105 BICARB mmol/L 26 21 BUN mg/dL 8 14 CREATININE mg/dL 0.34* 0.29* EGFR mL/min/1.73 m2 140 146 GLUCOSE mg/dL 88 100* CALCIUM mg/dL -- 9.7 Results from last 7 days Lab Units 07/15/22 0948 INR 1.0 * Kemal Barber DO - 07/16/2022 6:42 AM EST Neurosurgery Note: A/P: CP Epilepsy POD 1 S/p Baclofen pump exchange Watch for baclofen withdrawal/overdose Neuro exam: Stable Wound: CDI Drains: 0 out cc/12 hr shift Imaging: xr abd reviewed Pertinent labs reviewed Vitals reviewed Meds reviewed PT/OT, advance activity Advance diet F/u intra op cx, maintain on vanc Blood cx ,ua - p S: Seen and examined in [facility] O: Current: BP 99/70 Pulse 98 Temp 99.4 F (37.4 C) (Oral) Resp 17 Ht 4' 6 Wt 33.8 kg (74 lb 8.3 oz) SpO2 99% BMI 17.97 kg/m Lab Results Component Value Date WBC 12.17 (H) 07/15/2022 HGB 14.3 07/15/2022 HCT 47.2 (H) 07/15/2022 MCV 100.2 (H) 07/15/2022 PLT 278 07/15/2022 Lab Results Component Value Date NA 138 07/15/2022 K 4.2 07/15/2022 CL 105 07/15/2022 Lab Results Component Value Date INR 1.0 07/15/2022 INR 1.0 11/21/2016 PROTIME 12.4 07/15/2022 PROTIME 13.3 11/21/2016 Neuro: Non verbal, eyes open to stim, purposeful but spastic BUE MA 2 * Naz MratínezPh. - 07/15/2022 9:31 PM EST PHARMACOTHERAPY NOTE: Antimicrobial Therapy Initiation Assessment / Plan: Claudine Joseph is a 32 y.o. female initiated on antimicrobial therapy for [employer]TER HAND infection ( post neurosurgery). Patient initiated on vancomycin 750mg q8h Vancomycin trough goal is 15-20 mcg/mL. Will obtain level when at steady state or when clinically appropriate. Will monitor serum creatinine levels and urine output (if available) daily. Pharmacy will continue to follow, order levels, and make adjustments as needed. Please call pharmacy with questions. Current antibiotic regimen includes: vancomycin 750mg q8h Objective: Ht Readings from Last 1 Encounters: 07/15/22 4' 6 (137.2 cm) Wt Readings from Last 1 Encounters: 07/15/22 33.8 kg (74 lb 8.3 oz) [place] body weight: 40.9 kg (90 lb 1.1 oz) Labs include: WBC (K/mcL) Date Value 07/15/2022 12.17 (H) 04/22/2017 11.6 (H) Creatinine (mg/dL) Date Value 07/15/2022 0.29 (L) 04/22/2017 0.44 Estimated Creatinine Clearance: 148.6 mL/min (A) (by C-G formula based on SCr of 0.29 mg/dL (L)). Patient Tmax (last 24 hours): 98.9 F . Micro: Procedure Component Value Units Date/Time Tissue Aerobic Culture [[id number]] Collected: 07/15/221640 Order Status: Sent Specimen: Tissue from Abdominal Wall Updated: 07/15/222037 Tissue AFB Culture [[id number]] Collected: 07/15/221640 Order Status: Sent Specimen: Tissue from Abdominal Wall Updated: 07/15/222037 Tissue Anaerobic Culture [[id number]] Collected: 07/15/221640 Order Status: Sent Specimen: Tissue from Abdominal Wall Updated: 07/15/222037 Tissue Fungus Culture [[id number]] Collected: 07/15/221640 Order Status: Sent Specimen: Tissue from Abdominal Wall Updated: 07/15/222036 Wound Aerobic Culture [[id number]] Collected: 07/15/221639 Order Status: Sent Specimen: Swab from Abdominal Wall Updated: 07/15/222035 Wound AFB Culture [[id number]] Collected: 07/15/22 1640 Order Status: Sent Specimen: Swab from Abdominal Wall Updated: 07/15/222035 Wound Anaerobic Culture [[id number]] Collected: 07/15/221639 Order Status: Sent Specimen: Swab from Abdominal Wall Updated: 07/15/222035 Wound Fungus Culture [[id number]] Collected: 07/15/221639 Order Status: Sent Specimen: Swab from Abdominal Wall Updated: 07/15/222035 CSF AFB Culture [[id number]] Collected: 07/15/221625 Order Status: Sent Specimen: CSF Updated: 07/15/221749 CSF Anaerobic Culture [[id number]] Collected: 07/15/221625 Order Status: Sent Specimen: CSF Updated: 11/16/22 1750 CSF Fungus Culture [[id number]] Collected: 07/15/221625 Order Status: Sent Specimen: CSF Updated: 07/15/22 174 CSF Aerobic Culture (Shunt or Drain Only) [[id number]] Collected: 07/15/221625 Order Status: Completed Specimen: CSF Updated: 07/15/22 190 Gram Stain Result No Organisms Seen Many RBC No WBC Seen Pharmacist: Cailin Mazariegos R.Ph. Contact Number: Vocera * Stone Faria MD - 07/15/2022 7:07 AM EST [facility] Inpatient Progress Note 07/15/2022 Claudine Joseph 1990 [id number] Assessment/Plan: Claudine Joseph is a 32 y.o. female with a history of cerebral palsy s/p baclofen pump, quadriplegia, chronic decubitus ulcers, chronic urinary retention with Sage, dysphagia s/p PEG tube,chronic hypoxic respiratory failure on 2-3L NC, epilepsy, CKD who presented to [facility] 07/14/2022 with exposure of a portion of her baclofen pump. Baclofen pump failure: Exposed baclofen pump R buttock/hip area. No obvious signs of infection or drainage. Last revised at [place] with Dr Ramsey (neurosurgry). Neurosurgery following. Cerebral palsy: Due to anoxic brain injury at . Non-verbal baseline, at times blinks for communication. Spastic with baclofen pump as above. Neurogenic bladder with chronic Sage. Dysphagia withchronic PEG for all meds and TFs. RD consulted. Preoperative evaluation: Jason Revised Cardiac Index Risk Factors: zero . At home, patient able to complete poor functional status (approximately < 5 METS) as evidenced by DASI less than 34 . Chronic medical conditions that increase perioperative risk not captured with RCRI include: chronic lung disease. Most recent cardiac testing: EKG on admit NSR without any ischemic or acute changes. After chart review and discussion with patient, qualifies for Low Risk (0 RCRI with poor functional status). No active chest pain or dyspnea at this decreased functional capacity. Further cardiac testing will not reduce patients risk and okay to proceed without further testing. Final decision to take patient to OR left to risk/benefit decision making of surgical team. CKD: Per hx, though normal GFR based on Cr. Epilepsy: Home meds Lamictal, Keppra continued. Has PRN benzos at home, not ordered. Chronic hypoxic respiratory failure: At baseline 2-3L home O2. Continue home BIPAP at bedtime. Code status: Full, dicussed on admit DVT Prophylaxis: Lovenox Disposition Current living situation: home Expected Disposition: home Estimated discharge date: TBD Family updated: on admit 07/14/22 Subjective/Interval History: Today, I personally reviewed all new inpatient labs, vitals, radiology imaging, diagnostic tests, and notes from other providers. Relevant details summarized in my assessment/plan and objective data portion. Reviewed outpatient records. Saw Neuro in 05/2021, notably mom reported pt having almost daily seizures, but responsive to rescue benzos. Pre-op cleared, discussed with NSGY. Physical Exam: BP 99/70 (BP Location: Right arm, Patient Position: Lying) Pulse 97 Temp 98.6 F (37 C) (Axillary) Resp 18 Wt 36.3 kg (80 lb) SpO2 98% BMI 19.29 kg/m General: No acute distress Eyes: Extraocular movements intact ENT: Neck supple, oral mucosa moist without lesions Cardiovascular: Regular rate and rhythm Respiratory: Clear to auscultation Gastrointestinal: Soft, non tender Genitourinary: No suprapubic tenderness Musculoskeletal: No peripheral edema. Chronic spasticity and quadriplegia Skin: Warm, dry. R buttocks with exposed baclofen pump Neuro: Alert and conversational Psych: Mood appropriate Current Medications: cholecalciferol (vitamin D3) 2,000 Units Tube Daily enoxaparin (LOVENOX) injection 30 mg Subcutaneous Daily lamoTRIgine 250 mg Tube BID levETIRAcetam 1,000 mg Tube BID loratadine 10 mg Tube QAM montelukast 10 mg Tube Daily pantoprazole 40 mg Intravenous Daily polyethylene glycol 17 g Tube QAM sodium chloride (PF) 5 mL Intravenous Q8H ISSAC Labs, Imaging and Studies reviewed: Results from last 7 days Lab Units 07/15/22 0331 WBC K/mcL 12.17* HGB g/dL 14.3 HCT % 47.2* PLT K/mcL 278 Results from last 7 days Lab Units 07/15/22 0331 SODIUM mmol/L 138 POTASSIUM mmol/L 4.2 CHLORIDE mmol/L 105 BICARB mmol/L 21 BUN mg/dL 14 CREATININE mg/dL 0.29* EGFR mL/min/1.73 m2 146 GLUCOSE mg/dL 100* CALCIUM mg/dL 9.7 documented in this [id number] Note* Plan of Care - Brenda De La Rosa RN - 07/20/2022 11:49 PM EST Problem: Actual or potential alteration in health Goal: Absence of healthcare acquired conditions Outcome: Met Problem: Pressure Ulcer - Risk of Goal: Absence of pressure ulcer Outcome: Met Problem: Falls, Risk of Goal: Absence of falls Outcome: Met Problem: Actual or potential alteration in health Goal: Knowledge of Interdisciplinary Plan of Care Outcome: Not Met Goal: Knowledge of Enviroment Outcome: Not Met Problem: Pain Goal: Manage acute pain Outcome: Partially Met Goal: Manage chronic pain Outcome: Partially Met Goal: Reduced pain sensation Outcome: Partially Met Goal: Achievement of comfort function goal Outcome: Partially Met [id number] Consult note* Beny Tidwell RN - 07/20/2022 3:47 PM EST Associated Order(s): IP CONSULT TO IV TEAM PICC team consulted to place a midline indicated for 3 days of at home antibiotics. The patient is well known to the PICC team. Evaluation of her available extremities yielded tortuous and inadequately sized vessels. We were able to insert a 5.7 cm extended dwell IV that would allow successful admin istration of IV antibiotics in an outpatient setting. Good blood return. Patient tolerated insertion well. [id number] Consult note* Beny Tidwell RN - 07/20/2022 3:47 PM EST Associated Order(s): IP CONSULT TO IV TEAM PICC team consulted to place a midline indicated for 3 days of at home antibiotics. The patient is well known to the PICC team. Evaluation of her available extremities yielded tortuous and inadequately sized vessels. We were able to insert a 5.7 cm extended dwell IV that would allow successful admin istration of IV antibiotics in an outpatient setting. Good blood return. Patient tolerated insertion well. * KEKE Simon - 07/20/2022 2:58 PM ESTAssociated Order(s): IP CONSULT TO CARE MANAGEMENT; IP CONSULT TO CARE MANAGEMENT Care Management Consult Note Date: 07/20/2022 Time: 2:58 PM Patient Name: Claudine Joseph Date of : 1990 Reason for Consult: OPAT OPAT Discharge Plan: D/C Disposition: Home Health Care Services Related to Current Admission?: Yes Agency/Destination: [facility] Options Reviewed: Explained services/benefits Reason for Choice: Patient/Family preference, Currently with agency Discharging Transportation Plan: Transportation Type: Auto Discharge Plan Status: See below Assessment and Background Information: Living Arrangements: Friends, Family members Caregiver Identified: Yes Caregiver's Name: Peg, mom/guardian Support Systems: Spouse/significant other, Home care staff Assistance Needed: Dependent assist Type of Residence: Private residence Prior to Admission Home Care Services: Yes Type of Current Home Care Services: Home health care Current Agency Name: (Waiting to hear back from mother/PCP) Patient expects to be discharged to:: home Does the patient need discharge transport arranged?: No [facility] following, consulted x2 for OPAT. Please other CC note from today. * Abbey Rivera RN - 07/20/2022 1:54 PM ESTAssociated Order(s): IP CONSULT TO [facility] agency: Accepted or Pending Name of agency: (if [facility], include region) [facility] accepted Infusion pharmacy: (name) Referral ending or accepted? For OPAT, TPN, or TF: (list) Has script been sent? (Yes/no) [place]- received referral for IV antibiotics at discharge. Message sent to infusion team. Will wait benefits from PAS. HH & IV ATB- [place] MED[place] COVER[place] 100% Medication / frequency Zosyn 3.375 g IV Q 8 hours Line / tube AccuCath [facility] created for the following services: [or waiting for ____ (i.e wound care)] SN/IP Verify the demographics (residential address) [address] [address] What is the primary number to reach you? [phone] Who is your family physician/primary care physician? Marielle Duque MD Following physician will be: (list first name/last name) Katja Helm MD following for OPAT Do you have a caregiver and/or teachable caregiver (list relationship, name & phone #)? Patient's mother Has the patient been added to capacity board/tracking sheet? ([facility] only) Added to [facility] tracking sheet Estimated Discharge Date (SHARON): 07/20/2022 If discharge needs change, please reach out to liaison assigned on treatment team as hub is not notified of new consults once team is following. Thank you. * Hayden Velazquez DO - 07/19/2022 11:30 AM ESTAssociated Order(s): IP CONSULT TO NEUROLOGY Neurology Inpatient Consult [facility] 07/19/2022 Hayden Velazquez DO [facility] Patient: Claudine Joseph Date of : 1990 (32 y.o. female) Referring Provider: Refer to consult order in electronic medical record PCP: Marielle Duque MD ASSESSMENT: 32 y.o. female with history of anoxic brain injury, cerebral palsy, chronic kidney disease, epilepsy, spasticity with a baclofen pump presented to [facility] on 07/14/2022 with spasticity and baclofen pump exposure. Pt with breakthrough seizure, this is pretty typical for her per her mother. Likely exacerbated by stress of hospitalization / infection. Would not change AED regimen but would increase PRN valium tomirror closer to her home rescue therapy. Would hold off on EEG monitoring unless she has repeat events. PLAN: #Epilepsy #Breakthrough seizure Seizure: Resolved Etiology: Pre-existing refractory epilepsy Testing: None If becomes febrile or has drastic increase in seizure frequency would obtain CSF to rule out developing meningitis Labs: None Anti-epileptic Medication: Continue Epidiolex 3.5mL via GT BID Continue LTG 250mg BID Continue Keppra 1G BID IV Valium 5mg PRN for breakthrough seizure Seizure Precautions Activity Restrictions: does not apply Eventual Outpatient Follow-up: with established neurologist Other issues: #Baclofen pump exposure #Acute on chronic hypotension #Cerebral Palsy #Chronic respiratory failure Admitted with these risk variables:Anoxic Brain Damage. Please see assessment and plan for further details. Discussed plan with other teams' providers, specifically Dr. chambers. Time statement: A total of 35 minutes were spent on this encounter either in the patient's room or on the patient's hospital unit and over half of that time was spent on [id number] counseling and/or coordination of care. DIAGNOSTIC TESTING SUMMARY: Pending Lab and Radiology Results Order Current Status Blood Culture #1 Preliminary result Blood Culture #2 Preliminary result CSF AFB Culture Preliminary result CSF Anaerobic Culture Preliminary result CSF Fungus Culture Preliminary result Tissue AFB Culture Preliminary result Tissue Anaerobic Culture Preliminary result Tissue Fungus Culture Preliminary result Wound AFB Culture Preliminary result Wound Anaerobic Culture Preliminary result Wound Fungus Culture Preliminary result Resulted Testing: (MRI/CT/XR, EEG, EMG, CSF, Cardiac, Labs) Na 140, K 3.9, Cr 0.34 WBC 9.59, H/H/PLT: 9.7/30.3/193 SUBJECTIVE: Chief Complaint/Reason for Consult: seizure Informant(s): Care Team/Chart History of Present Illness: Claudine Joseph is a 32 y.o. female with past medical history of see below. PT was admitted for baclofen pump issue. She was seen by Dr. Morris signed off on 07/15. Pts presentation was 2/2 baclofen pump exposing through buttock / hip area, she is on ABX. Pt had a seizure today and was given valium. Per nursing, had a seizure event this AM PRIOR to her AM meds. Per mother she has at least daily seizures. Pt is now back to baseline. Review of Systems: Unable to perform ROS due to patient's decreased mental status. History: Past Medical History: Diagnosis Date Acute respiratory failure (HCC) Due to MRSA pneumonia 04/2016; Allergic rhinitis Anoxic brain damage ([facility]) Aspiration, chronic pulmonary Bowel and bladder incontinence Cerebral palsy ([facility]) Chronic kidney disease Chronic osteomyelitis of pelvic region, right ([facility]) 2018 required right ischial debridement, followed by Dr. Noland of plastics Chronic respiratory failure with hypoxia ([facility]) 3 L NC, followed by Dr. Stephy Cisse and Dr. Amalia Terry Constipation COVID-19 06/2020 Epilepsy ([facility]) followed at [facility] neurology clinic GERD (gastroesophageal reflux disease) occasional vomiting with gagging MRSA (methicillin resistant Staphylococcus aureus) 04/2016 Bilateral lungs Muscle spasticity medically refractory and has baclofen pump since 1999, followed at [facility] neuro baclofen pump clinic Nonverbal Answers yes with very long blinks per adoptive parent PEG (percutaneous endoscopic gastrostomy) status ([facility]) Presence of intrathecal baclofen pump [address] 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 Urine retention occasional occurrence that requires straight cath periodically Wheelchair bound Past Surgical History: Procedure Laterality Date BACK SURGERY 1999 Marrufo rods placed BACLOFEN PUMP IMPLANTATION X 3- last 2009 CHOLECYSTECTOMY INCISION AND DRAINAGE LOWER EXTREMITY Right 12/02/2018 Procedure: INCISION AND DRAINAGE WITH BONE BIOPSY OF RIGHT ISCHIUM; Surgeon: Rad Luque MD; Location: [facility] Main OR; Service: Orthopedic INSERTION PERCUTANEOUS ENDOSCOPIC GASTROSTOMY TUBE INTRATHECAL PUMP REMOVAL Bilateral 07/15/2022 Procedure: REMOVAL OF RIGHT INTRATHECAL PUMP, CATHETER WITH REPLACEMENT ON LEFT SIDE; Surgeon: Jose Portillo MD; Location: [facility] NEURO OR; Service: Neurological LAMINECTOMY DECOMP THORACIC MULTI LEVEL N/A 07/27/2016 Procedure: T1-2 THORACIC FUSION REVISION ; Surgeon: Kb Ramsey MD; Location: [facility] Main OR; Service: REVISION PAIN PUMP N/A 07/27/2016 Procedure: BACLOFEN PUMP REPLACEMENT ; Surgeon: Kb Ramsey MD; Location: [facility] Main OR; Service: SALIVARY GLAND SURGERY Social History: reports that she has never smoked. She has never used smokeless tobacco. She reports that she does not drink alcohol and does not use drugs. Family History Adopted: Yes Family history unknown: Yes Additional History Comments: I was unable to obtain and update history details due to patient's altered mental status and there was no knowledgeable family available. Allergies: Levaquin [levofloxacin], Augmentin [amoxicillin-pot clavulanate], Lactose intolerance [lactase], Penicillins, and Ragweed HOME Medications: Outpatient Medications Marked as Taking for the 07/14/22 encounter (Hospital Encounter) Medication Sig acetaminophen (TYLENOL) 325 MG tablet 650 mg by G-tube route every 6 (six) hours as needed for pain. acetic acid 0.25 % irrigation 120 mL daily Flush for bladder . cannabidioL (Epidiolex) 100 mg/mL Soln 3.5 mL (350 mg total) by G-tube route 2 (two) times a day . cholecalciferol, vitamin D3, 50 mcg (2,000 unit) cap 2,000 Units by G-tube route every morning. diazePAM (VALIUM) 2 MG tablet 3 (three) tablets (6 mg total) by Per G Tube route daily as needed For seizures . diazePAM (Valtoco) 15 mg/2 spray (7.5/0.1mL x 2) Novi Instill 1 spray into each nostril as needed (Seizures, may repeat times 1 in 4 hours) . fluconazole (DIFLUCAN) 150 MG tablet by Per G Tube route When taking antibiotics . fluticasone propionate (FLONASE) 50 mcg/actuation nasal spray Instill 1 (one) spray into each nostril daily as needed for rhinitis . guaiFENesin (ROBITUSSIN) 100 mg/5 mL syrup 200 mg by G-tube route 3 (three) times a day as needed for cough . ipratropium (ATROVENT) 0.02 % nebulizer solution inhale contents of 1 vial in nebulizer twice a dayIF CONGESTED OR WHEEZING OR LABORED CAN TAKE UP TO FOUR TIMES DAILY . lamoTRIgine (LAMICTAL) 100 MG tablet take 1 tablet PER G TUBE twice a day lamoTRIgine (LAMICTAL) 150 MG tablet take 1 tablet PER G TUBE twice a day levETIRAcetam (KEPPRA) 100 mg/mL solution 1,000 mg by Per G Tube route 2 (two) times a day . loratadine (CLARITIN) 10 mg tablet 10 mg by G-tube route every morning . medroxyPROGESTERone (DEPO-PROVERA) 150 mg/mL Syrg INJECT 1ML INTRAMUSCULARLY EVERY 10 TO 13 WEEKS montelukast (SINGULAIR) 10 mg tablet 10 mg by Per G Tube route daily . multivitamin/iron/folic acid (CENTRUM ORAL) 10 mL by G-tube route every morning . omeprazole (PRILOSEC) 40 MG capsule 40 mg by G-tube route every morning . ondansetron (ZOFRAN) 4 mg/5 mL solution 5 mL (4 mg total) by Per G Tube route every 8 (eight) hoursas needed for nausea . polyethylene glycol (MIRALAX) 17 gram powder 17 g by Per G Tube route every morning . promethazine (PHENERGAN) 12.5 MG suppository Insert 12.5 mg into the rectum every 6 (six) hours as needed for nausea. [DISCONTINUED] baclofen 40,000 mcg/20mL (2,000 mcg/mL) Soln Simple continuous infusion ITB at dailydose of 649.8 mcg/day. . HOSPITAL Infusions: sodium chloride 0.9 % 50 mL/hr (07/17/22 1716) HOSPITAL Scheduled Medications: cholecalciferol (vitamin D3) 2,000 Units Tube Daily cannabidioL 3.5 mL G-tube BID famotidine (PEPCID) injection 20 mg Intravenous BID lamoTRIgine 250 mg Tube BID levETIRAcetam 1,000 mg Tube BID linezolid (ZYVOX) IVPB 600 mg Intravenous Q12H loratadine 10 mg Tube QAM montelukast 10 mg Tube Daily pantoprazole 40 mg Intravenous Daily piperacillin-tazobactam (ZOSYN) extended infusion 3.375 g Intravenous Q8H polyethylene glycol 17 g Tube QAM sodium chloride (PF) 5 mL Intravenous Q8H [facility] PRN Medications: acetaminophen, diazepam, diphenhydrAMINE, guaiFENesin, HYDROmorphone, implantable pump, ipratropium, nalOXone AND Notify physician AND naloxone, ondansetron OR ondansetron, ondansetron OR ondansetron, oxyCODONE, Saline lock IV AND sodium chloride (PF) AND sodium chloride (PF) AND sodium chloride 0.9 % OBJECTIVE: Physical Examination: BP 90/62 (BP Location: Right arm, Patient Position: Lying) Pulse (!) 105 Temp 98.1 F (36.7 C) (Oral) Resp (!) 30 Ht 4' 6 Wt 33.8 kg (74 lb 8.3 oz) SpO2 97% BMI 17.97 kg/m CAMEJO: DNFC: Does Not Follow Commands FRANKLIN: Unable to Assess GENERAL: General Appearance: In NAD Eyes: See pupils below Ears: See hearing below Neck: Supple Respiratory Effort: Normal Extremities: No edema Skin: No rashes visualized MENTAL STATUS: Alertness, Attention Span & Concentration: will open eyes to voice at times, attempts to track examiner Language: mute Speech: Mute Orientation: DNFC Memory, Recent & Remote: DNFC Fund of Knowledge: DNFC CRANIAL NERVES: II - Visual Negron: no blink to threat II, III - Pupils: PERRL III, IV, - Eye Movements: eyes move spontaneously with a jerk like nystagmus fashion but able totrack, no gaze preference V - Facial Sensation: DNFC VII - Face Symmetry and Strength: DNFC VIII - Hearing: DNFC IX, X - Palate: DNFC XI - Shoulder Shrug: DNFC XII - Tongue Protrusion: Normal COORDINATION & GROSS MOTOR: Abnormal Movements: None Coordination Yklntc-li-Tzfc: DNFC Coordination: Epxp-Cdpe-Ecen:DNFC Rapid Alternating Movements: DNFC Drift: None Tone: increased throughout Bulk: decreased throughout MOTOR - MUSCLE STRENGTH: Pt contracted of all 4 limbs, did not apply painful stimulus for patient comfort REFLEXES: deferred SENSATION: No response to light touch Hayden Velazquez D.O., ABPN Vascular Neurologist [facility] * Karen Harris MD - 07/17/2022 8:24 AM ESTAssociated Order(s): IP CONSULT TO INFECTIOUS DISEASES Resident Consult Note Patient Name: Claudine Joseph : 1990 Admit Date: [id number] Assessment and Plan Patient is a 32 y.o. female with a past medical history significant for cerebral palsy s/p baclofenpump, quadriplegia, chronic urinary retention with sage, dysphagia s/p PEG tube, epilepsy, who presented to [facility] 07/14/2022 for exposed baclofen pump. ID consulted for assistance with empiric antibiotics. Baclofen pump Infection Initially placed 2015. Removed and exchanged by neurosurgery 07/15 - blood cx 07/16 NGTD - tissue cx 07/15 Strep agalactiae - wound cx 07/15 with rare pseudomonas and strep agalactiae - CSF cx 07/15, NGTD, gram stain with no organisms - WBC >12 on admit, now WNL - with red man syndrome reaction with vancomycin infusion. Plan: continue Linezolid for empiric coverage, f/u cultures. Ok to continue IV today with switch Alexia tomorrow. Re-added Zosyn now that wound culture is growing pseudomonas Plan not finalized until attested by Attending Physician Karne Harris MD Internal Medicine PGY-3 Pager: [phone] Chief Complaint: exposed baclofen pump History of Present Illness Claudine Joseph is a 32 y.o. female with pmh of cerebral palsy, anoxic brain injury, uadriplegia, chronic urinary retention with sage, dysphagia s/p PEG tube, epilepsy, who presented to [facility] 07/14/2022 for exposed baclofen pump. ID consulted for assistance with empiric antibiotics. Neurosurgery performed removal of baclofen pump and replacement on 07/15. Cultures from wound and CSF were sent. Patient received Vancomycin and developed red skin ~ 10 minutes after infusion. Re-occurred with slower infusion rate. Patient placed on Linezolid and Zosyn instead 07/17. Past Medical/ Surgical/ Social/ Family History Past Medical History: Diagnosis Date Acute respiratory failure ([facility]) Due to MRSA pneumonia 04/2016; Allergic rhinitis Anoxic brain damage ([facility]) Aspiration, chronic pulmonary Bowel and bladder incontinence Cerebral palsy ([facility]) Chronic kidney disease Chronic osteomyelitis of pelvic region, right ([facility]) 2018 required right ischial debridement, followed by Dr. Noland of plastics Chronic respiratory failure with hypoxia ([facility]) 3 L NC, followed by Dr. Stephy Cisse and Dr. Amalia Terry Constipation COVID-19 06/2020 Epilepsy ([facility]) followed at [facility] neurology clinic GERD (gastroesophageal reflux disease) occasional vomiting with gagging MRSA (methicillin resistant Staphylococcus aureus) 04/2016 Bilateral lungs Muscle spasticity medically refractory and has baclofen pump since 1999, followed at [facility] neuro baclofen pump clinic Nonverbal Answers yes with very long blinks per adoptive parent PEG (percutaneous endoscopic gastrostomy) status ([facility]) Presence of intrathecal baclofen pump [address] 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 Urine retention occasional occurrence that requires straight cath periodically Wheelchair bound Past Surgical History: Procedure Laterality Date BACK SURGERY 1999 Marrufo rods placed BACLOFEN PUMP IMPLANTATION X 3- last 2009 CHOLECYSTECTOMY INCISION AND DRAINAGE LOWER EXTREMITY Right 12/02/2018 Procedure: INCISION AND DRAINAGE WITH BONE BIOPSY OF RIGHT ISCHIUM; Surgeon: Rad Luque MD; Location: [facility] Main OR; Service: Orthopedic INSERTION PERCUTANEOUS ENDOSCOPIC GASTROSTOMY TUBE INTRATHECAL PUMP REMOVAL Bilateral 07/15/2022 Procedure: REMOVAL OF RIGHT INTRATHECAL PUMP, CATHETER WITH REPLACEMENT ON LEFT SIDE; Surgeon: Jose Portillo MD; Location: [facility] NEURO OR; Service: Neurological LAMINECTOMY DECOMP THORACIC MULTI LEVEL N/A 07/27/2016 Procedure: T1-2 THORACIC FUSION REVISION ; Surgeon: Kb Ramsey MD; Location: [facility] Main OR; Service: REVISION PAIN PUMP N/A 07/27/2016 Procedure: BACLOFEN PUMP REPLACEMENT ; Surgeon: Kb Ramsey MD; Location: [facility] Main OR; Service: SALIVARY GLAND SURGERY Family History Adopted: Yes Family history unknown: Yes Social History Socioeconomic History Marital status: Single Tobacco Use Smoking status: Never Smokeless tobacco: Never Vaping Use Vaping Use: Never used Substance and Sexual Activity Alcohol use: No Drug use: No Patient Allergies I have reviewed the patient's allergies. Levaquin [levofloxacin], Augmentin [amoxicillin-pot clavulanate], Lactose intolerance [lactase], Penicillins, and Ragweed Patient Review of Systems Review of Systems Unable to perform ROS: Patient nonverbal Physical Exam Vital Signs: BP 94/61 (BP Location: Right arm, Patient Position: Lying) Pulse 87 Temp 98.1 F (36.7 C) (Axillary) Resp (!) 20 Ht 4' 6 Wt 33.8 kg (74 lb 8.3 oz) SpO2 100% BMI 17.97 kg/m Physical Exam Constitutional: Comments: nonverbal HENT: Head: Normocephalic and atraumatic. Mouth/Throat: Mouth: Mucous membranes are moist. Pharynx: Oropharyngeal exudate present. Eyes: Extraocular Movements: Extraocular movements intact. Pupils: Pupils are equal, round, and reactive to light. Comments: Nystagmus present Cardiovascular: Rate and Rhythm: Normal rate and regular rhythm. Pulmonary: Breath sounds: No wheezing. Comments: Coarse breath sounds Abdominal: General: Abdomen is flat. There is no distension. Palpations: Abdomen is soft. Comments: PEG tube in place. Bandage placed in LLQ Musculoskeletal: Right lower leg: No edema. Left lower leg: No edema. Comments: Muscle atrophy present bilateral LE. Contractures present bilateral UE Skin: General: Skin is warm and dry. Neurological: Mental Status: She is alert. Comments: Nonverbal. Unable to follow commands. Additional Data - Labs/ Radiology/ etc. Recent Labs 07/15/22 0331 07/16/22 0632 07/16/22 2100 07/17/22 0510 NA 138 142 -- 146* K 4.2 3.4* 3.4* 2.9* CL 105 108 -- 111* BICARB 21 -- 27 BUN 14 8 -- 3* CREATININE 0.29* 0.34* -- 0.25* GLUCOSE 100* 88 -- 90 Recent Labs 07/15/22 0331 07/16/22 0710 07/17/22 0510 WBC 12.17* 10.14 9.59 HGB 14.3 10.3* 9.7* HCT 47.2* 32.4* 30.3* PLT 278 190 193 Lab Results Component Value Date ALT 20 10/17/2021 AST 16 10/17/2021 ALKPHOS 190 (H) 10/17/2021 BILITOT <0.2 10/17/2021 ALBUMIN 4.4 10/17/2021 Recent Labs 07/15/22 0948 INR 1.0 No results found for: HGBA1C Patient Home Medications No current outpatient medications on file. Associated attestation - Katja Helm MD - 07/17/2022 12:13 PM EST Patient was seen, examined, & discussed with our medical underwriter. I agree with the outlined history, examination, impression, & plan. Briefly, 32-year-old female with severe cerebral palsy, quadriplegic, has a baclofen pump for many years, currently with pocket infection requiring removal and reimplantation in a different area. Culture is growing group B strep and Pseudomonas. On physical exam the patient is afebrile, nonverbal at baseline. Abdomen is benign with PEG tube, new pump site is clean and healing well. Old pump site with dressing. Agree with linezolid and Zosyn for now, we will de-escalate antibiotic pending further culture results. Most likely we will change to oral therapy upon discharge. Please call with questions. Katja Helm MD, pager # [phone] [facility] [place] Infectious Diseases, office # [phone] * Zeke Turk, [facility] - 07/16/2022 2:31 PM EST Neurocritical Care Transfer Note Claudine Joseph is a 32 y.o. 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 The patient has scoliosiswhich causes her to lay on her right side, where the baclofen pump was located. She arrives to [facility] on POD 0 s/p removal of right intrathecal pump, with replacement on the left side, and cultures of the pocket & CSF were collected. The new left-sided pump should be functioning but keeping in N[facility]overnight to monitor for WD. Admitted with these risk variables:Brain Injury without Return of Consciousness and Anoxic Brain Damage. Please see assessment and plan for further details. Assessment and Plan NEUROLOGIC Intrathecal Baclofen Pump Erosion/Infection Risk/Concern of Baclofen Withdrawal - History of spastic CP and quadriplegia s/p baclofen pump placement many years ago (Last revised at [facility] with Dr Ramsey in 2016). - Baseline: Non-verbal, blinks for yes. Spastic with baclofen pump as above. Contractured. Neurogenic bladder with chronic Sage. Dysphagia with chronic PEG for all meds and TFs. - Presents to [facility] ED on 07/14/22 with c/o baclofen pump being eroded through the abdominal pocket. The patient has scoliosis which causes her to lay on her right side, where the baclofen pump was located. - Per NSGY consult note: The original pump was interrogated and was still working. Reportedly, there was a small amount of fluid coming from the pocket. She may also need additional surgery with plastics if the pocket does not close appropriately. - To [facility] on POD 1 s/p removal of right intrathecal pump, with replacement on the left side, and cultures of the pocket & CSF were collected. The new left-sided pump should be functioning but keeping in NCC overnight to monitor for WD. - Neurology signed off - Plans to follow-up in the spasticity clinic with Dr. Estuardo Moncada Epilepsy - Per history - Continue home lamictal, keppra and Epidiolex - Patients mother reports that it is very common for the patient to have a seizure upon awakening in the morning. Seizures are described to be as arms tensing upwards and roving eye movements. Motheris able to administer intranasal valium, which is reportedly very effective - will substitute for PRN IV valium. Cerebral Palsy - Per history, secondary to anoxic brain injury at - Baseline: Non-verbal, blinks for yes. Spastic with baclofen pump as above. Contractured. Neurogenic bladder with chronic Sage. Dysphagia with chronic PEG for all meds and TFs. CARDIOVASCULAR Mild Hypotension - Patient with SBP between 88-101 but MAP has been persistently > 70. - MAP goal > 65 Rhythm stable. 06/2017 TTE: EF 70%, overall normal study. 07/15/2022 EKG: NSR. PULMONARY BiPAP was ordered for Chronic Hypoxia Respiratory Failure; however, the patient does not have the BUE mobility or strength to remove mask herself in an emergency. Thus, will continue with supplemental oxygen via nasal cannula. Protecting airway at this time. RENAL Na 142, K 3.4, Cr 0.34 / BUN 8. ERP in place. Monitor UOP. Patient has a chronic indwelling sage catheter. HEMATOLOGIC Hgb 10.3 / HCT 32.4, Plt 190, INR 1. ID Leukocytosis - Secondary to thecal pump erosion through skin - Afebrile Tm < 99.5, WBC 10.14. - 07/15 multiple intra-op cultures sent and pending - Continue empiric vancomycin per NSGY (please see significant event note) - May need to consider ID consult for long-term antibiotic management ENDOCRINE Monitor for SSI needs. BG goal 80-180, most recently between 73-117. GI / NUTRITION Dysphagia - Per history - Patients mother confirms that the patient is strictly NPO per oral route, has a PEG tube for tubefeeds. Per previous RD notes, patient was receiving Promote @ 55 ml/hr. - Likely old PEG site with increased drainage per bedside staff. GI consulted to evaluate. Hold tube feeds until cleared by GI. Bowel regimen: continue miralax. Last BM KETTLE GIRL. PROPHYLAXIS - Continue home PPI. - SCDs, consider chemoprophylaxis 07/16. PT/OT: Ok for therapy. SW: Consulted. SHARON: TBD. CODE STATUS / FAMILY - Full Code, discussed with patients adoptive mother, Peg Joseph. Plan discussed with [facility] attending Dr. Magdaleno. [facility] to be the accepting service upon transfer from [facility]. Zeke Turk CNP Neurocritical Care Subjective / Events: Slight hypotension this AM likely baseline. Levo used for several hours, quickly weaned off. In setting of Hgb drop, concern for active bleed --> CT A/P without acute hemorrhage. Incidental finding of communication of the distal gastric antrum to the skin surface at the midline. Likely old PEG site with increased drainage per bedside staff. GI consulted to evaluate. Hold tube feeds until cleared by GI. No further critical care needs, [facility] consulted, ok for transfer from [facility]. Review of Systems: [] CV, Resp, GI, Neuro, and all other systems reviewed and negative other than listed above. [x] Unable to obtain review of systems due to intubation, critically ill condition, and/or neurologic status. Exam Vital Signs: Temp: [97.7 F (36.5 C)-99.6 F (37.6 C)] 98.8 F (37.1 C) Heart Rate: [55-120] 93 Resp: [12-45] 22 BP: (79-139)/(50-86) 86/61 I/O last 3 completed shifts: In: 1696.4 [I.V.:1368.8; IV Piggyback:327.6] Out: 985 [Urine:875; Drains:10; Blood:100] Exam taken upon arrival to [facility]. General: Eyes open. Does not appear to be acutely ill or in any distress. Chronically ill appearing. Head/Neck: Head - Normocephalic. Eyes - Sclerae anicteric. Ears - External ears normal. Nose - Normal with NC in place. Mouth - Mucous membranes dry. Neck - trachea is midline. Cardiovascular: Regular rate and rhythm. No clicks, rubs, murmurs, or gallops noted. Peripheral extremity pulses are palpable. Respiratory: Respiratory effort unlabored without accessory muscle use. Lung sounds are diminished to ascultation bilaterally without wheezes, rales, or rhonchi. Abdominal: Soft, nondistended, nontender, decreased bowel sounds. PEG tube noted to LUQ. LLQ with surgical dressing from recently implanted baclofen pump. RLQ with surgical drain in place. Right hip/backside with surgical dressing in place. Musculoskeletal: No obvious long bone deformity. Extremities: Well perfused. No clubbing, cyanosis, or edema noted. Neurological: Eyes are open. Appears to be regarding examiner. Does not follow commands but that isbaseline. Contractured to all 4 extremities. Mother states that patient is able to blink for yes. Skin: Normal turgor, well-hydrated, no diffuse rash appreciated. Clinical Data: [x] Lab, Micro data reviewed. [x] Most recent imaging reviewed. No results for input(s): PHART, VIF1HBH, PO2ART, T2IUXQGG, RESPRATE, TIDALVOL, PEEP, L9MHILTN in the last 72 hours. Recent Labs 07/15/22 0331 07/16/22 0710 WBC 12.17* 10.14 HGB 14.3 10.3* PLT 278 190 Recent Labs 07/15/22 0331 07/16/22 0632 NA 138 142 K 4.2 3.4* CL 105 108 BICARB 21 26 BUN 14 8 CREATININE 0.29* 0.34* GLUCOSE 100* 88 MG -- 2.1 CALCIUM 9.7 -- Lab Results Component Value Date LACTICACID 2.9 (H) 11/28/2018 LACTICACID 2.9 (H) 11/28/2018 LACTICACID 1.3 11/21/2016 Recent Labs 07/15/22 0948 INR 1.0 PTT 27 Labs Last Refreshed: CBC - 07/16/2022, BMP - 07/16/2022, CMP - - -, Coag - 07/15/2022 Associated attestation - Nannette Magdaleno MD - 07/16/2022 6:14 PM EST I have independently examined and reviewed this case and discussed the assessment and plan of care with the YUDY. The YUDY completed the initial history taking and physical examination. The assessment and plan were coordinated with myself and I independently completed a separate history and physical examination in a face to face encounter. I agree with the assessment and plan as provided in the note with clarifications/exceptions noted below. Patient seen and examined on rounds this afternoon. Appears to be at neurologic baseline. Eyes opento voice, directs gaze. Contractures of limbs noted. Baclofen use with implanted pump replacement: Appears to be receiving adequate dosing. Continue supportive care. Hypotension: Likely post operative. CT A/P without hemorrhage and subsequently off norepinephrine gtt. Continue empiric antibiotics for now, consider ID consultation. Transfer to floor. Nannette Magdaleno MD, MHDS, FNCS Neurocritical Care 07/16/22 6:10 PM * Marcelino Rocha MD - 07/16/2022 2:08 PM ESTAssociated Order(s): IP CONSULT TO GASTROENTEROLOGY GASTROENTEROLOGY/HEPATOLOGY CONSULT NOTE 4 Patient Name: Claudine Joseph Admit Date: [id number] Date of Consult: 07/16/22 MR #: [id number] : 1990 Physicians: Marielle Duque MD (Family); No ref. provider found (Referring) Consult Ordered By: Zeke Turk CNP Assessment and Plan: Other S/P percutaneous endoscopic gastrostomy (PEG) tube placement (HCC) Assessment & Plan Assessment: Ms. Claudine Joseph is a 32 y.o. 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 This was exchanged yesterday 07/15 by neurosurgery. We have been consulted about leakage from PEG site. 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 This was closed by [facility] November 2021 with an OTSC clip and suture. She has a PEG placed at a new site that has been functioning well. On the floor this afternoon nursing staff noticed some leakage at the prior site. Mother reports that since November she has still has some persistent leakage at the priorPEG site. They see a local surgeon in [place] who has been very happy with overall closure. She still has had some ongoing leakage but this has improved with time. Mother typically has been using some Silvercel dressing and gauze. She does continuous TF with Promote (lactose intolerance). No concerns at home. Plan: Okay to wait for mom to get to hospital to resume tube feeds and ensure that amount of leakage consistent with what happens at home. Current PEG has otherwise functioned without concern. Motherhas been happy with surgical group in [place]. If she has heightened concerns for leakage can further re- evaluate potential EGD / surgical consultation. We will follow up tomorrow. Chief Complaint/Reason for Visit: Fluid leakage from unknown abdominal site, appears to possibly be previous peg tube site? Drainage increased with current PEG tube site. Holding feeds and PO meds for now. History of Present Illness: Ms. Claudine Joseph is a 32 y.o. 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 This was exchanged yesterday 07/15 by neurosurgery. We have been consulted for leakage from prior PEG site. Nursing staff noted some leakage around presumed prior PEG site when they went to flush the active PEG site. Chart reviewed as well as contacted patient's mother by phone. She had a prior standing PEG that was in place over a decade. In November 2021 at [facility] she had an EGD for OTSC closure of fistula. The examined esophagus was normal. There was evidence of an intact gastrostomy with a patent G-tubepresent in the gastric body. This was characterized by healthy appearing mucosa. The PEG required exchange for a low-profile tube. The PEG was cut externally, grasped, and removed with the scope. Removal was easily accomplished. An externally removable 24 Fr Avanos QUE-CAMEJO low-profile gastrostomy tube was lubricated. The replacement tube was placed using the existing gastrostomy port. The balloonwas inflated with 6 cc of sterile water The final position of the gastrostomy tube was confirmed byrelook endoscopy, and skin marking noted to be 3.5 cm at the external bumper. The final tension and compression of the abdominal wall by the PEG tube and external bumper were checked and revealed that the bumper was loose and lightly touching the skin. The tube was capped, and the tube site was cleaned and dressed. Estimated blood loss was minimal. A suture and [id number]-clip was found in the gastric body at the site of the prior PEG tube. There was no persistent fistula seen. The examinedduodenum was normal. Mother reports that ever since then she has also followed with a local surgeon in [place] who has been very happy with overall closure. She still has had some ongoing leakage but this has improved with time. Mother typically has been using some Silvercel dressing and gauze. She does continuousTF with Promote (lactose intolerance). History: Past Medical History: Diagnosis Date Acute respiratory failure ([facility]) Due to MRSA pneumonia 04/2016; Allergic rhinitis Anoxic brain damage ([facility]) Aspiration, chronic pulmonary Bowel and bladder incontinence Cerebral palsy ([facility]) Chronic kidney disease Chronic osteomyelitis of pelvic region, right ([facility]) 2019 required right ischial debridement, followed by Dr. Noland of plastics Chronic respiratory failure with hypoxia ([facility]) 3 L NC, followed by Dr. Stephy Cisse and Dr. Amalia Terry Constipation COVID-19 06/2020 Epilepsy ([facility]) followed at [facility] neurology clinic GERD (gastroesophageal reflux disease) occasional vomiting with gagging MRSA (methicillin resistant Staphylococcus aureus) 04/2016 Bilateral lungs Muscle spasticity medically refractory and has baclofen pump since 1999, followed at [facility] neuro baclofen pump clinic Nonverbal Answers yes with very long blinks per adoptive parent PEG (percutaneous endoscopic gastrostomy) status ([facility]) Presence of intrathecal baclofen pump [address] 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 Urine retention occasional occurrence that requires straight cath periodically Wheelchair bound Past Surgical History: Procedure Laterality Date BACK SURGERY 1999 Marrufo rods placed BACLOFEN PUMP IMPLANTATION X 3- last 2009 CHOLECYSTECTOMY INCISION AND DRAINAGE LOWER EXTREMITY Right 12/02/2018 Procedure: INCISION AND DRAINAGE WITH BONE BIOPSY OF RIGHT ISCHIUM; Surgeon: Rad Luque MD; Location: [facility] Main OR; Service: Orthopedic INSERTION PERCUTANEOUS ENDOSCOPIC GASTROSTOMY TUBE INTRATHECAL PUMP REMOVAL Bilateral 07/15/2022 Procedure: REMOVAL OF RIGHT INTRATHECAL PUMP, CATHETER WITH REPLACEMENT ON LEFT SIDE; Surgeon: Jose Portillo MD; Location: [facility] NEURO OR; Service: Neurological LAMINECTOMY DECOMP THORACIC MULTI LEVEL N/A 07/27/2016 Procedure: T1-2 THORACIC FUSION REVISION ; Surgeon: Kb Ramsey MD; Location: [facility] Main OR; Service: REVISION PAIN PUMP N/A 07/27/2016 Procedure: BACLOFEN PUMP REPLACEMENT ; Surgeon: Kb Ramsey MD; Location: [facility] Main OR; Service: SALIVARY GLAND SURGERY Family History Adopted: Yes Family history unknown: Yes GI Specific Family History: Unable to obtain due to patient's clinical status Social History Socioeconomic History Marital status: Single Tobacco Use Smoking status: Never Smokeless tobacco: Never Vaping Use Vaping Use: Never used Substance and Sexual Activity Alcohol use: No Drug use: No Allergy Information: I have reviewed the patient's allergies. Levaquin [levofloxacin], Augmentin [amoxicillin-pot clavulanate], Lactose intolerance [lactase], Penicillins, and Ragweed Home Medications: Outpatient Medications as of 07/16/2022 Medication Sig acetaminophen (TYLENOL) 325 MG tablet 650 mg by G-tube route every 6 (six) hours as needed for pain. acetic acid 0.25 % irrigation 120 mL daily Flush for bladder . cannabidioL (Epidiolex) 100 mg/mL Soln 3.5 mL (350 mg total) by G-tube route 2 (two) times a day . cholecalciferol, vitamin D3, 50 mcg (2,000 unit) cap 2,000 Units by G-tube route every morning. diazePAM (VALIUM) 2 MG tablet 3 (three) tablets (6 mg total) by Per G Tube route daily as needed For seizures . diazePAM (Valtoco) 15 mg/2 spray (7.5/0.1mL x 2) Novi Instill 1 spray into each nostril as needed (Seizures, may repeat times 1 in 4 hours) . fluconazole (DIFLUCAN) 150 MG tablet by Per G Tube route When taking antibiotics . fluticasone propionate (FLONASE) 50 mcg/actuation nasal spray Instill 1 (one) spray into each nostril daily as needed for rhinitis . guaiFENesin (ROBITUSSIN) 100 mg/5 mL syrup 200 mg by G-tube route 3 (three) times a day as needed for cough . ipratropium (ATROVENT) 0.02 % nebulizer solution inhale contents of 1 vial in nebulizer twice a dayIF CONGESTED OR WHEEZING OR LABORED CAN TAKE UP TO FOUR TIMES DAILY . lamoTRIgine (LAMICTAL) 100 MG tablet take 1 tablet PER G TUBE twice a day lamoTRIgine (LAMICTAL) 150 MG tablet take 1 tablet PER G TUBE twice a day levETIRAcetam (KEPPRA) 100 mg/mL solution 1,000 mg by Per G Tube route 2 (two) times a day . loratadine (CLARITIN) 10 mg tablet 10 mg by G-tube route every morning . medroxyPROGESTERone (DEPO-PROVERA) 150 mg/mL Syrg INJECT 1ML INTRAMUSCULARLY EVERY 10 TO 13 WEEKS montelukast (SINGULAIR) 10 mg tablet 10 mg by Per G Tube route daily . multivitamin/iron/folic acid (CENTRUM ORAL) 10 mL by G-tube route every morning . omeprazole (PRILOSEC) 40 MG capsule 40 mg by G-tube route every morning . ondansetron (ZOFRAN) 4 mg/5 mL solution 5 mL (4 mg total) by Per G Tube route every 8 (eight) hoursas needed for nausea . polyethylene glycol (MIRALAX) 17 gram powder 17 g by Per G Tube route every morning . promethazine (PHENERGAN) 12.5 MG suppository Insert 12.5 mg into the rectum every 6 (six) hours as needed for nausea. Review of Systems: Unable to obtain history or review of systems secondary to clinical circumstances Physical Examination: Vital Signs: Temp: [97.7 F (36.5 C)-99.6 F (37.6 C)] 98.8 F (37.1 C) Heart Rate: [55-120] 93 Resp: [12-45] 22 BP: (79-139)/(50-86) 86/61 CONSTITUTIONAL: chronically ill, NAD HEENT: Normocephalic, atraumatic, trach in place CARDIAC: Regular rate & rhythm. LUNGS: Clear to auscultation anteriorly ABDOMEN: Flat, negative hepatosplenomegaly, soft and non-tender. Low profile James in place. Just to the right of this old PEG site with scan drainage noted with small opening at skin - approx 3 mm SKIN: No jaundice NEURO: No asterixis PSYCHIATRIC: opens eyes to command, non verbal EXTREMITIES: No evidence of edema, cyanosis. Laboratory and Additional Data Reviewed: Laboratory 07/16/22 2:54 PM Microbiology 07/16/22 2:54 PM Pathology 07/16/22 2:54 PM Radiology 07/16/22 2:54 PM Cardiology 07/16/22 2:54 PM Medications 07/16/22 2:54 PM Transcriptions 07/16/22 2:54 PM Results from last 7 days Lab Units 07/16/22 0710 07/15/22 0331 WBC K/mcL 10.14 12.17* HGB g/dL 10.3* 14.3 HCT % 32.4* 47.2* PLT K/mcL 190 278 Results from last 7 days Lab Units 07/16/22 0632 07/15/22 0331 SODIUM mmol/L 142 138 POTASSIUM mmol/L 3.4* 4.2 CHLORIDE mmol/L 108 105 BUN mg/dL 8 14 CREATININE mg/dL 0.34* 0.29* CALCIUM mg/dL -- 9.7 GLUCOSE mg/dL 88 100* Results from last 7 days Lab Units 07/15/22 0948 INR 1.0 Marcelino Rocha MD Gastroenterology * Celia Jeronimo RD - 07/16/2022 12:46 PM ESTAssociated Order(s): IP CONSULT TO DIETITIAN Nutrition Care Initial Assessment Reason for visit: Physician Consult for Tube feeding, initiate and manage Nutrition Diagnosis: Swallowing difficulty related to fci dysphagia as evidenced by NPO/PEG. Nutrition Intervention: Initiate Enteral Nutrition Nutrition Prescription: Diet: NPO Tube Feeding: GI consulted d/t leakage from previous PEG site, EN on hold until evaluated. When able: Promote via: PEG @ goal of 45ml/hr to provide 1080kcal, 68g protein, 906ml h2O. Nutrition Goals: Pt will receive 80% of prescribed tube feeding volume Start Date:07/16/2022 Expected End Date:07/20/2022 Nutrition Education: No needs at this time Assessment: Pertinent clinical information: POD#1 removal of R intrathecal pump with replacement on the left side. Pt with hx of spastic CP, chronic dysphagia/PEG tube, anoxic brain damage and epilepsy. Past Medical History: Diagnosis Date Acute respiratory failure ([facility]) Due to MRSA pneumonia 04/2016; Allergic rhinitis Anoxic brain damage ([facility]) Aspiration, chronic pulmonary Bowel and bladder incontinence Cerebral palsy ([facility]) Chronic kidney disease Chronic osteomyelitis of pelvic region, right ([facility]) 2019 required right ischial debridement, followed by Dr. Noland of plastics Chronic respiratory failure with hypoxia ([facility]) 3 L NC, followed by Dr. Stephy Cisse and Dr. Amalia Terry Constipation COVID-19 06/2020 Epilepsy ([facility]) followed at [facility] neurology clinic GERD (gastroesophageal reflux disease) occasional vomiting with gagging MRSA (methicillin resistant Staphylococcus aureus) 04/2016 Bilateral lungs Muscle spasticity medically refractory and has baclofen pump since 1999, followed at [facility] neuro baclofen pump clinic Nonverbal Answers yes with very long blinks per adoptive parent PEG (percutaneous endoscopic gastrostomy) status ([facility]) Presence of intrathecal baclofen pump [address] 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 Urine retention occasional occurrence that requires straight cath periodically Wheelchair bound Height: 4' 6 Current weight: 33.8 kg (74 lb 8.3 oz) BMI Body mass index is 17.97 kg/m . Wt Readings from Last 5 Encounters: 07/16/22 33.8 kg (74 lb 8.3 oz) 02/27/22 36.3 kg (80 lb) 01/14/22 36.3 kg (80 lb) 11/30/21 37.2 kg (82 lb) 10/17/21 38.6 kg (85 lb) Current diet order: NPO Home EN: Receives 1 liter of Promote/day at home (1000kcal, 63g protein) Patient/family comments: no family present Difficulty Chewing/Swallowing: Yes Skin Integrity: multiple wounds: sacral, buttock, previous pump placement, previous PEG. ET to see GI Function: BM x2 Nutrition Focus Physical Exam Type: deferred at this time Labs: Recent Labs 07/16/22 0632 NA 142 K 3.4* BICARB 26 CL 108 GLUCOSE 88 BUN 8 CREATININE 0.34* MG 2.1 Scheduled Meds: cholecalciferol (vitamin D3) 2,000 Units Tube Daily cannabidioL 3.5 mL G-tube BID famotidine (PEPCID) injection 20 mg Intravenous BID lamoTRIgine 250 mg Tube BID levETIRAcetam 1,000 mg Tube BID loratadine 10 mg Tube QAM montelukast 10 mg Tube Daily pantoprazole 40 mg Intravenous Daily polyethylene glycol 17 g Tube QAM potassium bicarbonate 50 mEq Tube Once potassium chloride 40 mEq Intravenous Once sodium chloride (PF) 5 mL Intravenous Q8H ISSAC sodium chloride 0.9% 500 mL Intravenous Once vancomycin 750 mg Intravenous Q8H [START ON 07/17/2022] vancomycin 750 mg Intravenous Q12H Continuous Infusions: norEPINEPHrine (LEVOPHED) infusion Stopped (07/16/22 0927) sodium chloride 0.9 % Stopped (07/15/22 5259) sodium chloride 0.9 % 75 mL/hr (07/16/22 1159) Estimated Energy Needs Total Energy Estimated Needs: 1014kcal Method for Estimating Needs: 30kcal/kg Total Protein Estimated Needs: 57-76g Method for Estimating Needs: 1.5-2g/kg Celia Jeronimo RD, LD, CNSC * Danitza Valentin CNP - 07/15/2022 9:00 PM ESTAssociated Order(s): IP CONSULT TO NEURO CRITICAL CARE Neurocritical Care Consultation Claudine Joesph is a 32 y.o. 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 The patient has scoliosiswhich causes her to lay on her right side, where the baclofen pump was located. She arrives to [facility] on POD 0 s/p removal of right intrathecal pump, with replacement on the left side, and cultures of the pocket & CSF were collected. The new left-sided pump should be functioning but keeping in NCCovernight to monitor for WD. Admitted with these risk variables:Brain Injury without Return of Consciousness and Anoxic Brain Damage. Please see assessment and plan for further details. Assessment and Plan NEUROLOGIC Intrathecal Baclofen Pump Erosion/Infection Risk/Concern of Baclofen Withdrawal - History of spastic CP and quadriplegia s/p baclofen pump placement many years ago (Last revised at [facility] with Dr Ramsey in 2016). - Baseline: Non-verbal, blinks for yes. Spastic with baclofen pump as above. Contractured. Neurogenic bladder with chronic Sage. Dysphagia with chronic PEG for all meds and TFs. - Presents to [facility] ED on 07/14/22 with c/o baclofen pump being eroded through the abdominal pocket. The patient has scoliosis which causes her to lay on her right side, where the baclofen pump was located. - Per NSGY consult note: The original pump was interrogated and was still working. Reportedly, there was a small amount of fluid coming from the pocket. She may also need additional surgery with plastics if the pocket does not close appropriately. - To [facility] on POD 0 s/p removal of right intrathecal pump, with replacement on the left side, and cultures of the pocket & CSF were collected. The new left-sided pump should be functioning but keeping in NCC overnight to monitor for WD. - Neurology signed off - Plans to follow-up in the spasticity clinic with Dr. Estuardo Moncada Epilepsy - Per history - Continue home lamictal, keppra and Epidiolex - Patients mother reports that it is very common for the patient to have a seizure upon awakening in the morning. Seizures are described to be as arms tensing upwards and roving eye movements. Motheris able to administer intranasal valium, which is reportedly very effective - will substitute for PRN IV valium. Cerebral Palsy - Per history, secondary to anoxic brain injury at - Baseline: Non-verbal, blinks for yes. Spastic with baclofen pump as above. Contractured. Neurogenic bladder with chronic Sage. Dysphagia with chronic PEG for all meds and TFs. CARDIOVASCULAR Mild Hypotension - Patient with SBP between 88-101 but MAP has been persistently > 70. - MAP goal > 65 Rhythm stable. 06/2017 TTE: EF 70%, overall normal study. 07/15/2022 EKG: NSR. PULMONARY BiPAP was ordered for Chronic Hypoxia Respiratory Failure; however, the patient does not have the BUE mobility or strength to remove mask herself in an emergency. Thus, will continue with supplemental oxygen via nasal cannula. Protecting airway at this time. RENAL Na 138, K 4.2, Cr 0.29 / BUN 14. ERP in place. Monitor UOP. Patient has a chronic indwelling sage catheter. HEMATOLOGIC Hgb 14.3 / HCT 47.2, Plt 278, INR 1. ID Leukocytosis - Secondary to thecal pump erosion through skin - Afebrile Tm < 99.5, WBC 12.17. - 07/15 multiple intra-op cultures sent and pending - Continue empiric vancomycin per NSGY (please see significant event note) - May need to consider ID consult for long-term antibiotic management ENDOCRINE Monitor for SSI needs. BG goal 80-180, most recently between 73-117. GI / NUTRITION Dysphagia - Per history - Patients mother confirms that the patient is strictly NPO per oral route, has a PEG tube for tubefeeds. Per previous RD notes, patient was receiving Promote @ 55 ml/hr. Bowel regimen: continue miralax. Last BM KETTLE GIRL. PROPHYLAXIS - Continue home PPI. - SCDs, consider chemoprophylaxis 07/16. PT/OT: Ok for therapy. SW: Consulted. SHARON: TBD. CODE STATUS / FAMILY - Full Code, discussed with patients adoptive mother, Peg Joseph. Plan discussed with [facility] attending Dr. Magdaleno. [facility] to be the accepting service upon transfer from [facility]. Danitza Valentin, DIRECTOR OF GLOBAL SALES Neurocritical Care Reason for Consultation: Medical management in critical care, s/p removal of right intrathecal baclofen pump. History of Presenting Illness: Claudine Joseph is a 32 y.o. 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 The patient has scoliosiswhich causes her to lay on her right side, where the baclofen pump was located. She arrives to [facility] on POD 0 s/p removal of right intrathecal pump, with replacement on the left side, and cultures of the pocket & CSF were collected. The new left-sided pump should be functioning but keeping in NCCovernight to monitor for WD. Review of Systems: [] CV, Resp, GI, Neuro, and all other systems reviewed and negative other than listed above. [x] Unable to obtain review of systems due to intubation, critically ill condition, and/or neurologic status. Past Medical, Surgical and Social History: Medical History: Past Medical History: Diagnosis Date Acute respiratory failure (HCC) Due to MRSA pneumonia 04/2016; Allergic rhinitis Anoxic brain damage (HCC) Aspiration, chronic pulmonary Bowel and bladder incontinence Cerebral palsy ([facility]) Chronic kidney disease Chronic osteomyelitis of pelvic region, right ([facility]) 2019 required right ischial debridement, followed by Dr. Noland of plastics Chronic respiratory failure with hypoxia ([facility]) 3 L NC, followed by Dr. Stephy Cisse and Dr. Amalia Terry Constipation COVID-19 06/2020 Epilepsy ([facility]) followed at [facility] neurology clinic GERD (gastroesophageal reflux disease) occasional vomiting with gagging MRSA (methicillin resistant Staphylococcus aureus) 04/2016 Bilateral lungs Muscle spasticity medically refractory and has baclofen pump since 1999, followed at [facility] neuro baclofen pump clinic Nonverbal Answers yes with very long blinks per adoptive parent PEG (percutaneous endoscopic gastrostomy) status ([facility]) Presence of intrathecal baclofen pump [address] 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 Urine retention occasional occurrence that requires straight cath periodically Wheelchair bound Surgical History: Past Surgical History: Procedure Laterality Date BACK SURGERY 1999 Marrufo rods placed BACLOFEN PUMP IMPLANTATION X 3- last 2009 CHOLECYSTECTOMY INCISION AND DRAINAGE LOWER EXTREMITY Right 12/02/2018 Procedure: INCISION AND DRAINAGE WITH BONE BIOPSY OF RIGHT ISCHIUM; Surgeon: Rad Luque MD; Location: [facility] Main OR; Service: Orthopedic INSERTION PERCUTANEOUS ENDOSCOPIC GASTROSTOMY TUBE LAMINECTOMY DECOMP THORACIC MULTI LEVEL N/A 07/27/2016 Procedure: T1-2 THORACIC FUSION REVISION ; Surgeon: Kb Ramsey MD; Location: [facility] Main OR; Service: REVISION PAIN PUMP N/A 07/27/2016 Procedure: BACLOFEN PUMP REPLACEMENT ; Surgeon: Kb Ramsey MD; Location: [facility] Main OR; Service: SALIVARY GLAND SURGERY Family History: Family History Adopted: Yes Family history unknown: Yes [] Unable to verify due to intubation and/or neurologic status. Social History: Social History Socioeconomic History Marital status: Single Tobacco Use Smoking status: Never Smokeless tobacco: Never Vaping Use Vaping Use: Never used Substance and Sexual Activity Alcohol use: No Drug use: No [] Unable to verify due to intubation and/or neurologic status. Allergies and Medications: Allergies: Allergies Allergen Reactions Levaquin [Levofloxacin] Rash, flushing with RUE arm swelling. Augmentin [Amoxicillin-Pot Clavulanate] Rash Per mother- tolerates Zosyn, unable to tolerate amoxil (blisters upper extremity) Lactose Intolerance [Lactase] Penicillins Other (See Comments) Blisters- amoxil Ragweed Unknown Hospital medications reviewed. Home medications: Prior to Admission medications Medication Sig Start Date End Date Taking? Authorizing Provider acetaminophen (TYLENOL) 325 MG tablet 650 mg by G-tube route every 6 (six) hours as needed for pain. Yes Historical Provider, acetic acid 0.25 % irrigation 120 mL daily Flush for bladder . 10/31/21 Yes Historical Provider, cannabidioL (Epidiolex) 100 mg/mL Soln 3.5 mL (350 mg total) by G-tube route 2 (two) times a day . 02/16/22 Yes Yany Wright CNP cholecalciferol, vitamin D3, 50 mcg (2,000 unit) cap 2,000 Units by G-tube route every morning. YesHistorical Provider, diazePAM (VALIUM) 2 MG tablet 3 (three) tablets (6 mg total) by Per G Tube route daily as needed For seizures . 11/27/21 Yes Yany Wright CNP diazePAM (Valtoco) 15 mg/2 spray (7.5/0.1mL x 2) Novi Instill 1 spray into each nostril as needed (Seizures, may repeat times 1 in 4 hours) . 11/27/21 Yes Yany Wright CNP fluconazole (DIFLUCAN) 150 MG tablet by Per G Tube route When taking antibiotics . 02/06/21 Yes Historical Provider, fluticasone propionate (FLONASE) 50 mcg/actuation nasal spray Instill 1 (one) spray into each nostril daily as needed for rhinitis . 01/11/20 Yes Stephy Cisse MD guaiFENesin (ROBITUSSIN) 100 mg/5 mL syrup 200 mg by G-tube route 3 (three) times a day as needed for cough . Yes Historical Provider, ipratropium (ATROVENT) 0.02 % nebulizer solution inhale contents of 1 vial in nebulizer twice a dayIF CONGESTED OR WHEEZING OR LABORED CAN TAKE UP TO FOUR TIMES DAILY . 01/15/21 Yes Stephy Cisse MD lamoTRIgine (LAMICTAL) 100 MG tablet take 1 tablet PER G TUBE twice a day 10/17/21 Yes Yany Wright CNP lamoTRIgine (LAMICTAL) 150 MG tablet take 1 tablet PER G TUBE twice a day 10/17/21 Yes Yany Wright CNP levETIRAcetam (KEPPRA) 100 mg/mL solution 1,000 mg by Per G Tube route 2 (two) times a day . Yes Historical Provider, loratadine (CLARITIN) 10 mg tablet 10 mg by G-tube route every morning . Yes Historical Provider, medroxyPROGESTERone (DEPO-PROVERA) 150 mg/mL Syrg INJECT 1ML INTRAMUSCULARLY EVERY 10 TO 13 WEEKS 05/14/20 Yes Historical Provider, montelukast (SINGULAIR) 10 mg tablet 10 mg by Per G Tube route daily . 12/16/19 Yes Historical Provider, multivitamin/iron/folic acid (CENTRUM ORAL) 10 mL by G-tube route every morning . Yes Historical Provider, omeprazole (PRILOSEC) 40 MG capsule 40 mg by G-tube route every morning . Yes Historical Provider, ondansetron (ZOFRAN) 4 mg/5 mL solution 5 mL (4 mg total) by Per G Tube route every 8 (eight) hoursas needed for nausea . 10/17/21 07/14/22 Yes Magalie Rome MD polyethylene glycol (MIRALAX) 17 gram powder 17 g by Per G Tube route every morning . Yes Historical Provider, promethazine (PHENERGAN) 12.5 MG suppository Insert 12.5 mg into the rectum every 6 (six) hours as needed for nausea. Yes Historical Provider, baclofen 40,000 mcg/20mL (2,000 mcg/mL) Soln Simple continuous infusion ITB at daily dose of 649.8 mcg/day. . 08/26/21 07/15/22 Yes Radha Marquez CNP baclofen 40,000 mcg/20mL (2,000 mcg/mL) Soln Simple continuous infusion ITB at daily dose of 649.8 mcg/day. . 07/15/22 Donna Levy CNP Exam Vital Signs: Temp: [97.7 F (36.5 C)-98.6 F (37 C)] 97.7 F (36.5 C) Heart Rate: [80-121] 88 Resp: [12-24] 17 BP: (84-141)/(50-96) 90/58 I/O last 3 completed shifts: In: 1300.8 [I.V.:1200; IV Piggyback:100.8] Out: 100 [Blood:100] Exam taken upon arrival to [facility]. General: Eyes open. Does not appear to be acutely ill or in any distress. Chronically ill appearing. Head/Neck: Head - Normocephalic. Eyes - Sclerae anicteric. Ears - External ears normal. Nose - Normal with NC in place. Mouth - Mucous membranes dry. Neck - trachea is midline. Cardiovascular: Regular rate and rhythm. No clicks, rubs, murmurs, or gallops noted. Peripheral extremity pulses are palpable. Respiratory: Respiratory effort unlabored without accessory muscle use. Lung sounds are diminished to ascultation bilaterally without wheezes, rales, or rhonchi. Abdominal: Soft, nondistended, nontender, decreased bowel sounds. PEG tube noted to LUQ. LLQ with surgical dressing from recently implanted baclofen pump. RLQ with surgical drain in place. Right hip/backside with surgical dressing in place. Musculoskeletal: No obvious long bone deformity. Extremities: Well perfused. No clubbing, cyanosis, or edema noted. Neurological: Eyes are open. Appears to be regarding examiner. Does not follow commands but that isbaseline. Contractured to all 4 extremities. Mother states that patient is able to blink for yes. Skin: Normal turgor, well-hydrated, no diffuse rash appreciated. Clinical Data: [x] Lab, Micro data reviewed. [x] Most recent imaging reviewed. No results for input(s): PHART, [id number], PO2ART, [id number], RESPRATE, TIDALVOL, PEEP, T2OUHFNS in the last 72 hours. Recent Labs 07/15/22 0331 WBC 12.17* HGB 14.3 PLT 278 Recent Labs 07/15/22 0331 NA 138 K 4.2 CL 105 BICARB 21 BUN 14 CREATININE 0.29* GLUCOSE 100* CALCIUM 9.7 Lab Results Component Value Date LACTICACID 2.9 (H) 11/28/2018 LACTICACID 2.9 (H) 11/28/2018 LACTICACID 1.3 11/21/2016 Recent Labs 07/15/22 0948 INR 1.0 PTT 27 Labs Last Refreshed: CBC - 07/15/2022, BMP - 07/15/2022, CMP - - -, Coag - 07/15/2022 Associated attestation - Nannette Magdaleno MD - 07/16/2022 6:14 PM EST Discussed wit e on admission. See my attestation to today's progress note. Nannette Magdaleno MD, DS, [facility] Neurocritical Care 07/16/22 1:18 PM * Bashir Chappell MD - 07/15/2022 10:55 AM ESTAssociated Order(s): IP CONSULT TO NEUROLOGY Neurology Inpatient Consult [facility] 07/15/2022 Bashir Chappell MD [facility] Patient: Claudine Joseph Date of : 1990 (32 y.o. female) Referring Provider: Refer to consult order in electronic medical record PCP: Marielle Duque MD ASSESSMENT: 32 y.o. female with history of anoxic brain injury, cerebral palsy, chronic kidney disease, epilepsy, spasticity with a baclofen pump presented to [facility] on 07/14/2022 with severe spasticity with baclofen pump that has come through the skin and needs to be removed. I believe neurology was consulted to manage oral baclofen should the patient not have the baclofen pump replaced. I have reached out to neurosurgery but have not heard back yet on whether they are replacing the pump or simply removing the pump. I will reach out to the patient's spasticity team to find out how much oral replacement baclofen she will need based on her current pump settings if she is no longer g etting baclofen through the pump. PLAN: 1. If the pump is not being replaced, I will determine an oral baclofen dosing and order that for the postoperative period. 2. It is imperative that the patient continue taking her antiepileptic medications while she is in the hospital in the perioperative period. In particular, if we cannot get Epidiolex then the patient's family should have this available so it can be administered to the patient while she is here. I di scussed this with the patient's bedside nurse and she is working on this. Admitted with these risk variables:Anoxic Brain Damage. Please see assessment and plan for further details. DIAGNOSTIC TESTING SUMMARY: Resulted Testing: (MRI/CT/XR, EEG, EMG, CSF, Cardiac, Labs) ESR 81, CRP 26.3, CBC with a white count of 12 and unremarkable BMP SUBJECTIVE: Chief Complaint/Reason for Consult: Baclofen pump removal Informant(s): Care Team/Chart History of Present Illness: Claudine Joseph is a 32 y.o. female The patient was admitted through the [facility] ER because of exposure of the baclofen pump tubing in the right buttock. The patient was admitted for neurosurgical removal of the pump. Neurology was consulted to manage oral baclofen if the pump is not going to be replaced The patient's family was not at the bedside when I was in the room. The patient can supply no history. I have messaged the neurosurgical team and spoke with the bedside nurse but it is not clear if the patient will be having the baclofen pump removed or replaced. Review of Systems: All systems reviewed and negative except pertinent positives and negatives documented in the History of Present Illness (HPI). History: Past Medical History: Diagnosis Date Acute respiratory failure (HCC) Due to MRSA pneumonia 04/2016; Allergic rhinitis Anoxic brain damage (HCC) Aspiration, chronic pulmonary Bowel and bladder incontinence Cerebral palsy (HCC) Chronic kidney disease Chronic osteomyelitis of pelvic region, right (HCC) 2019 required right ischial debridement, followed by Dr. Noland of plastics Chronic respiratory failure with hypoxia ([facility]) 3 L NC, followed by Dr. Stephy Cisse and Dr. Amalia Terry Constipation COVID-19 06/2020 Epilepsy ([facility]) followed at [facility] neurology clinic GERD (gastroesophageal reflux disease) occasional vomiting with gagging MRSA (methicillin resistant Staphylococcus aureus) 04/2016 Bilateral lungs Muscle spasticity medically refractory and has baclofen pump since 1999, followed at [facility] neuro baclofen pump clinic Nonverbal Answers yes with very long blinks per adoptive parent PEG (percutaneous endoscopic gastrostomy) status ([facility]) Presence of intrathecal baclofen pump [address] 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 Urine retention occasional occurrence that requires straight cath periodically Wheelchair bound Past Surgical History: Procedure Laterality Date BACK SURGERY 1999 Marrufo rods placed BACLOFEN PUMP IMPLANTATION X 3- last 2009 CHOLECYSTECTOMY INCISION AND DRAINAGE LOWER EXTREMITY Right 12/02/2018 Procedure: INCISION AND DRAINAGE WITH BONE BIOPSY OF RIGHT ISCHIUM; Surgeon: Rad Luque MD; Location: [facility] Main OR; Service: Orthopedic INSERTION PERCUTANEOUS ENDOSCOPIC GASTROSTOMY TUBE LAMINECTOMY DECOMP THORACIC MULTI LEVEL N/A 07/27/2016 Procedure: T1-2 THORACIC FUSION REVISION ; Surgeon: Kb Ramsey MD; Location: [facility] Main OR; Service: REVISION PAIN PUMP N/A 07/27/2016 Procedure: BACLOFEN PUMP REPLACEMENT ; Surgeon: Kb Ramsey MD; Location: [facility] Main OR; Service: SALIVARY GLAND SURGERY Social History: reports that she has never smoked. She has never used smokeless tobacco. She reports that she does not drink alcohol and does not use drugs. Family History Adopted: Yes Family history unknown: Yes Additional History Comments: None Allergies: Levaquin [levofloxacin], Augmentin [amoxicillin-pot clavulanate], Lactose intolerance [lactase], Penicillins, and Ragweed HOME Medications: Outpatient Medications Marked as Taking for the 07/14/22 encounter (Hospital Encounter) Medication Sig acetaminophen (TYLENOL) 325 MG tablet 650 mg by G-tube route every 6 (six) hours as needed for pain. acetic acid 0.25 % irrigation 120 mL daily Flush for bladder . cannabidioL (Epidiolex) 100 mg/mL Soln 3.5 mL (350 mg total) by G-tube route 2 (two) times a day . cholecalciferol, vitamin D3, 50 mcg (2,000 unit) cap 2,000 Units by G-tube route every morning. diazePAM (VALIUM) 2 MG tablet 3 (three) tablets (6 mg total) by Per G Tube route daily as needed For seizures . diazePAM (Valtoco) 15 mg/2 spray (7.5/0.1mL x 2) Novi Instill 1 spray into each nostril as needed (Seizures, may repeat times 1 in 4 hours) . fluconazole (DIFLUCAN) 150 MG tablet by Per G Tube route When taking antibiotics . fluticasone propionate (FLONASE) 50 mcg/actuation nasal spray Instill 1 (one) spray into each nostril daily as needed for rhinitis . guaiFENesin (ROBITUSSIN) 100 mg/5 mL syrup 200 mg by G-tube route 3 (three) times a day as needed for cough . ipratropium (ATROVENT) 0.02 % nebulizer solution inhale contents of 1 vial in nebulizer twice a dayIF CONGESTED OR WHEEZING OR LABORED CAN TAKE UP TO FOUR TIMES DAILY . lamoTRIgine (LAMICTAL) 100 MG tablet take 1 tablet PER G TUBE twice a day lamoTRIgine (LAMICTAL) 150 MG tablet take 1 tablet PER G TUBE twice a day levETIRAcetam (KEPPRA) 100 mg/mL solution 1,000 mg by Per G Tube route 2 (two) times a day . loratadine (CLARITIN) 10 mg tablet 10 mg by G-tube route every morning . medroxyPROGESTERone (DEPO-PROVERA) 150 mg/mL Syrg INJECT 1ML INTRAMUSCULARLY EVERY 10 TO 13 WEEKS montelukast (SINGULAIR) 10 mg tablet 10 mg by Per G Tube route daily . multivitamin/iron/folic acid (CENTRUM ORAL) 10 mL by G-tube route every morning . omeprazole (PRILOSEC) 40 MG capsule 40 mg by G-tube route every morning . ondansetron (ZOFRAN) 4 mg/5 mL solution 5 mL (4 mg total) by Per G Tube route every 8 (eight) hoursas needed for nausea . polyethylene glycol (MIRALAX) 17 gram powder 17 g by Per G Tube route every morning . promethazine (PHENERGAN) 12.5 MG suppository Insert 12.5 mg into the rectum every 6 (six) hours as needed for nausea. [DISCONTINUED] baclofen 40,000 mcg/20mL (2,000 mcg/mL) Soln Simple continuous infusion ITB at dailydose of 649.8 mcg/day. . HOSPITAL Infusions: sodium chloride 0.9 % sodium chloride 0.9 % Stopped (07/15/22923) sodium chloride 0.9 % 75 mL/hr (07/15/22924) HOSPITAL Scheduled Medications: cholecalciferol (vitamin D3) 2,000 Units Tube Daily lamoTRIgine 250 mg Tube BID levETIRAcetam 1,000 mg Tube BID loratadine 10 mg Tube QAM montelukast 10 mg Tube Daily pantoprazole 40 mg Intravenous Daily polyethylene glycol 17 g Tube QAM sodium chloride (PF) 5 mL Intravenous Q8H [facility] PRN Medications: acetaminophen, guaiFENesin, ipratropium, ondansetron OR ondansetron, Saline lock IV AND sodium chloride (PF) AND sodium chloride (PF) AND sodium chloride 0.9 % OBJECTIVE: Physical Examination: BP (!) 98/57 Pulse (!) 101 Temp 98.6 F (37 C) (Axillary) Resp (!) 19 Wt 36.3 kg (80 lb) SpO2 100% BMI 19.29 kg/m CAMEJO: DNFC: Does Not Follow Commands FRANKLIN: Unable to Assess The patient is lying in bed with her head turned to the left. The patient does not follow any commands although she appears to be alert. She does avoid my light when I try to look at her pupils. She did not answer yes/no questions with eye blinks. Extraocular movements appear to be intact. Pupils appear to be round and reactive although it is difficult as she avoids the light. Her head is turned to the left but the face otherwise appears symmetric. Tongue is midline. She did blink to threat bilaterally. She has severe spasticity throughout her body and the axial musculature resulting in head turning to the left as well as some neck stiffness. She also has severe spasticity and contractures of the arms. The lower extremities have contractures at the ankles but the tone is more reduced. I did not do reflexes as it would not really add to the picture and the patient appeared to be uncomfortable when I was moving her limbs. There was ankle clonus bilaterally. Toes were downgoing bilaterally. With painful stimulation in her limbs she does have increased spasticity and her arms raise up off the bed slightly. When I held her arms up and let go they slowly returned back to the bed so there appears to be some resistance. There was no movement in the legs. * Adrienne Baig CNP - 07/15/2022 1:34 AM EST Images from the original note were not included. Neurosurgery Inpatient Consult [facility] 07/15/2022 Adrienne Baig CNP [facility] Patient: Claudine Joseph Date of : 1990 (32 y.o.) Referring Provider: Refer to consult order in electronic medical record PCP: Marielle Duque MD ASSESSMENT/PLAN: Baclofen pump failure -Exposed baclofen pump right lower lateral abdomen area -Last revised at [facility] with Dr. Ramsey on 07/27/2016 -No obvious signs of infection. Check sed rate, CRP, WBC count -Keep NPO -Hold AC/AP medications -Medicine team for preoperative clearance -Will discuss with Dr. Sharma Admitted with these risk variables:None. Please see assessment and plan for further details. SUBJECTIVE: Chief Complaint/Reason for Consult: Exposed baclofen pump/need for surgical removal Informant(s): Care Team/Chart History of Present Illness: Claudine Joseph is a 32 y.o. female with history of spastic cerebral palsy with quadriplegia-wheelchair bound, baclofen pump revision at [facility] with Dr Ramsey on 07/27/2016, back surgery in 1999 with prior Marrufo Rods, chronic hypoxic respiratory failure on 2-3L NC, seizures, chronic decubitus ulcers, urinary retention with chronic sage and dysphagia s/p PEG tube who presents with anexposed baclofen pump. Her adopted mother states she noticed the exposed pump 1-2 days ago, prior to that there was a dark area under the skin where the pump is located. She states she is unhappy with the placement of the pump because it was placed in a location where she lays. She does not want the patient to see Dr. Ramsey again in the future. She lives at home with her adopted mother. Her mother denies the patient having any fevers. She reports that the patient communicates intermittently via blinking. She does not take any anticoagulantsor antiplatelet medications. Review of Systems: Unable to perform ROS due to patient's decreased mental status. Past Medical History: has a past medical history of Acute respiratory failure ([facility]), Allergic rhinitis, Anoxic brain damage ([facility]), Aspiration, chronic pulmonary, Bowel and bladder incontinence, Cerebral palsy ([facility]), Chronic kidney disease, Chronic osteomyelitis of pelvic region, right ([facility]) (2018),Chronic respiratory failure with hypoxia ([facility]), Constipation, COVID-19 (06/2020), Epilepsy ([facility]), GERD (gastroesophageal reflux disease), MRSA (methicillin resistant Staphylococcus aureus) (04/2016),Muscle spasticity, Nonverbal, PEG (percutaneous endoscopic gastrostomy) status ([facility]), Presence of intrathecal baclofen pump (1999), Restrictive lung disease due to kyphoscoliosis, Urine retention, and Wheelchair bound. Past Surgical History: has a past surgical history that includes Peg Tube Insertion; Baclofen pump implantation; Salivary gland surgery; Back surgery (1999); Cholecystectomy; Pain Pump Revision (N/A,07/27/2016); Laminectomy Decomp Thoracic Multi Level (N/A, 07/27/2016); and Incision And Drainage Lower Extremity (Right, 12/02/2018). Social History: reports that she has never smoked. She has never used smokeless tobacco. She reports that she does not drink alcohol and does not use drugs. Family History: Unknown, patient adopted Allergies: is allergic to levaquin [levofloxacin], augmentin [amoxicillin-pot clavulanate], lactoseintolerance [lactase], penicillins, and ragweed. HOME Medications: Prior to Admission medications Medication Sig Start Date End Date Taking? Authorizing Provider acetaminophen (TYLENOL) 325 MG tablet 650 mg by G-tube route every 6 (six) hours as needed for pain. Yes Historical Provider, acetic acid 0.25 % irrigation 120 mL daily Flush for bladder . 10/31/21 Yes Historical Provider, baclofen 40,000 mcg/20mL (2,000 mcg/mL) Soln Simple continuous infusion ITB at daily dose of 649.8 mcg/day. . 08/26/21 Yes Radha Marquez CNP cannabidioL (Epidiolex) 100 mg/mL Soln 3.5 mL (350 mg total) by G-tube route 2 (two) times a day . 02/16/22 Yes Yany Wright CNP cholecalciferol, vitamin D3, 50 mcg (2,000 unit) cap 2,000 Units by G-tube route every morning. YesHistorical Provider, diazePAM (VALIUM) 2 MG tablet 3 (three) tablets (6 mg total) by Per G Tube route daily as needed For seizures . 11/27/21 Yes Yany Wright CNP diazePAM (Valtoco) 15 mg/2 spray (7.5/0.1mL x 2) Novi Instill 1 spray into each nostril as needed (Seizures, may repeat times 1 in 4 hours) . 11/27/21 Yes Yany Wright CNP fluconazole (DIFLUCAN) 150 MG tablet by Per G Tube route When taking antibiotics . 02/06/21 Yes Historical Provider, fluticasone propionate (FLONASE) 50 mcg/actuation nasal spray Instill 1 (one) spray into each nostril daily as needed for rhinitis . 01/11/20 Yes Stephy Cisse MD guaiFENesin (ROBITUSSIN) 100 mg/5 mL syrup 200 mg by G-tube route 3 (three) times a day as needed for cough . Yes Historical Provider, ipratropium (ATROVENT) 0.02 % nebulizer solution inhale contents of 1 vial in nebulizer twice a dayIF CONGESTED OR WHEEZING OR LABORED CAN TAKE UP TO FOUR TIMES DAILY . 01/15/21 Yes Setphy Cisse MD lamoTRIgine (LAMICTAL) 100 MG tablet take 1 tablet PER G TUBE twice a day 10/17/21 Yes Yany Wright CNP lamoTRIgine (LAMICTAL) 150 MG tablet take 1 tablet PER G TUBE twice a day 10/17/21 Yes Yany Wright CNP levETIRAcetam (KEPPRA) 100 mg/mL solution 1,000 mg by Per G Tube route 2 (two) times a day . Yes Historical Provider, loratadine (CLARITIN) 10 mg tablet 10 mg by G-tube route every morning . Yes Historical Provider, medroxyPROGESTERone (DEPO-PROVERA) 150 mg/mL Syrg INJECT 1ML INTRAMUSCULARLY EVERY 10 TO 13 WEEKS 05/14/20 Yes Historical Provider, montelukast (SINGULAIR) 10 mg tablet 10 mg by Per G Tube route daily . 12/16/19 Yes Historical Provider, multivitamin/iron/folic acid (CENTRUM ORAL) 10 mL by G-tube route every morning . Yes Historical Provider, omeprazole (PRILOSEC) 40 MG capsule 40 mg by G-tube route every morning . Yes Historical Provider, ondansetron (ZOFRAN) 4 mg/5 mL solution 5 mL (4 mg total) by Per G Tube route every 8 (eight) hoursas needed for nausea . 10/17/21 07/14/22 Yes Magalie Rome MD polyethylene glycol (MIRALAX) 17 gram powder 17 g by Per G Tube route every morning . Yes Historical Provider, promethazine (PHENERGAN) 12.5 MG suppository Insert 12.5 mg into the rectum every 6 (six) hours as needed for nausea. Yes Historical Provider, HOSPITAL Infusions: sodium chloride 0.9 % HOSPITAL Scheduled Medications: enoxaparin (LOVENOX) injection 30 mg Subcutaneous Daily lamoTRIgine 250 mg Tube BID levETIRAcetam 1,000 mg Tube BID loratadine 10 mg Tube QAM montelukast 10 mg Tube Daily pantoprazole 40 mg Intravenous Daily polyethylene glycol 17 g Tube [facility] PRN Medications: acetaminophen, guaiFENesin, ipratropium, ondansetron OR ondansetron OBJECTIVE: Physical Examination: BP 102/70 (BP Location: Right arm, Patient Position: Lying) Pulse (!) 105 Temp 98.6 F (37 C) (Axillary) Resp (!) 19 Wt 36.3 kg (80 lb) SpO2 100% BMI 19.29 kg/m CAMEJO: DNFC: Does Not Follow Commands FRANKLIN: Unable to Assess Physical Exam: BP 108/70 (BP Location: Right arm, Patient Position: Lying) Pulse (!) 106 Temp 98.6 F (37 C) (Axillary) Resp 17 Wt 36.3 kg (80 lb) SpO2 100% BMI 19.29 kg/m General: NAD, chronically ill Eyes: EOMI ENT: neck supple, head tilts to the left Gastrointestinal: Soft, non tender Musculoskeletal: Right UE contracted-spontaneous movement, Left UE contracted- spontaneous movement,Right Lower extremity-flexed at the knee-no movement noted. Left lower extremity extended moves foot to tactile stimulation. Does not follow commands Skin: warm, dry, right lateral abdomen with exposed baclofen pum Neuro: Alert. Moans aloud occasionally. Grimaces. Does not follow commands DATA REVIEWED: Labs: Lab Results Component Value Date NA 140 01/20/2022 MDR8IVL 54.0 (H) 09/20/2019 INR 1.0 11/21/2016 HGB 10.5 (L) 01/20/2022 WBC 9.97 01/20/2022 PLT 294 01/20/2022 BUN 10 01/20/2022 CREATININE 0.23 (L) 01/20/2022 Associated attestation - Peter Portillo Ed, MD - 07/15/2022 2:12 PM EST I have reviewed the notes, assessments, and/or procedures performed by the YUDY, I concur with her/his documentation of Claudine Joseph, except as noted below. Patient seen and examined by me on 07/15/22 32 yo female with history of spastic CP and quadriplegia s/p baclofen pump placement many years ago, now presents with a pump that has eroded through the abdominal pocket. The pump became exposed 1-2days ago. The patient lays on the right side due to scoliosis . On exam she is non verbal. There is spasticity Estefani 1 in B LE and UE. There are contractures present. I couldn't elicit clonus. The pump incision is fully eroded with exposure of about a fifth ofthe device. The device was interrogated and is still working. There is a small amount of fluid coming from the pocket. Imaging shows the catheter in the thoracic region. She has marrufo rods throughout her spine. Given that she is on high doses of baclofen the plan is to remove the pump and replace on the left side. She will need cultures of the pocket and CSF. She may also need additional surgery with plastics if the pocket does not close appropriately. Discussed with mother the risks including infection as the patient has an active infection in the pocket area. Consent was obtained. We will proceed to OR today. documented in this [id number] Note* Sign Off Note - Amalia Sexton CNP - 07/20/2022 3:22 PM EST Neurology Sign-Off Diagnosis: Breakthrough seizure in setting of pre-existing epilepsy and setting of ITB infection Tests Pending: None Discharge Medications & Treatments: Continue Epidiolex 350 mg (3.5 mL) via GT BID Continue LTG 250 mg BID Continue Keppra 1G BID IV Valium 5mg PRN for breakthrough seizure Additional Recommendations: Activity Restrictions: Reinforced. For additional details see patient discharge instructions & previous notes. Follow-up Testing (After Discharge): None Follow-up Appointment: With Dr. Talbert. See Discharge Tab/AVS for details. Message sent to [facility] to help arrange follow up. Recall: If questions. If worsening neurologic exam. [id number] Consult note* KEKE Simon - 07/20/2022 2:58 PM EST Associated Order(s): IP CONSULT TO CARE MANAGEMENT; IP CONSULT TO CARE MANAGEMENT Care Management Consult Note Date: 07/20/2022 Time: 2:58 PM Patient Name: Claudine Joseph Date of : 1990 Reason for Consult: OPAT OPAT Discharge Plan: D/C Disposition: Home Health Care Services Related to Current Admission?: Yes Agency/Destination: [facility] Options Reviewed: Explained services/benefits Reason for Choice: Patient/Family preference, Currently with agency Discharging Transportation Plan: Transportation Type: Auto Discharge Plan Status: See below Assessment and Background Information: Living Arrangements: Friends, Family members Caregiver Identified: Yes Caregiver's Name: Peg, mom/guardian Support Systems: Spouse/significant other, Home care staff Assistance Needed: Dependent assist Type of Residence: Private residence Prior to Admission Home Care Services: Yes Type of Current Home Care Services: Home health care Current Agency Name: (Waiting to hear back from mother/PCP) Patient expects to be discharged to:: home Does the patient need discharge transport arranged?: No [facility] following, consulted x2 for OPAT. Please other [facility] note from today. [id number] Consult note* Abbey Rivera RN - 07/20/2022 1:54 PM ESTAssociated Order(s): IP CONSULT TO [facility] agency: Accepted or Pending Name of agency: (if [facility], include region) [facility] accepted Infusion pharmacy: (name) Referral ending or accepted? For OPAT, TPN, or TF: (list) Has script been sent? (Yes/no) OHIP- received referral for IV antibiotics at discharge. Message sent to infusion team. Will wait benefits from [facility]. HH & IV ATB- [place] MED[place]OVER[place] 100% Medication / frequency Zosyn 3.375 g IV Q 8 hours Line / tube AccuCath [facility] created for the following services: [or waiting for ____ (i.e wound care)] SN/IP Verify the demographics (residential address) [address] [address] What is the primary number to reach you? [phone] Who is your family physician/primary care physician? Marielle Duque MD Following physician will be: (list first name/last name) Katja Helm MD following for OPAT Do you have a caregiver and/or teachable caregiver (list relationship, name & phone #)? Patient's mother Has the patient been added to capacity board/tracking sheet? ([facility] only) Added to [facility] tracking sheet Estimated Discharge Date (SHARON): 07/20/2022 If discharge needs change, please reach out to liaison assigned on treatment team as hub is not notified of new consults once team is following. Thank you. [id number] Note* Sign Off Note - Florence Rebollar CNP - 07/20/2022 1:38 PM EST Neurosurgery Sign-Off Consulting Neurosurgeon: Dr. Mcfarlane Diagnosis: Baclofen pump exchange Plan: To OR on 07/15/22 for exchange of baclofen pump with Dr. Mcfarlane Follow-up: With Dr. Mcfarlane in the office in 2-3 weeks. Medications: Per primary team DVT Prophylaxis: Per primary team Braces: Not Applicable Activity: No Brace Needed Discharge instructions updated with appropriate follow-up. The Neurosurgery service will sign off at this time. Please re-consult with any questions, concerns or clinical updates. [employer] Work Phone: [phone] Hospital Discharge instructions* Discharge Instr - AVS First Page* Florence Rebollar CNP - 07/20/2022 1:01 PM EST Procedure: REMOVAL OF RIGHT INTRATHECAL PUMP, CATHETER WITH REPLACEMENT ON LEFT SIDE on 07/15/22 Alejandro Portillo MD BACK/FLANK SURGERY, HOME CARE INSTRUCTIONS Activity -Rest often -No brace needed -No driving until two weeks after surgery and no longer taking narcotic pain medications. -You may ride for short trips. Always wear a seat belt. -You may climb stairs slowly. Special Care -If you use nicotine in any form- patches, smoking, electronic or chewing-It delays healing and increases your risk for infection -If you are a Diabetic- Check blood sugar often and call your family doctor if it s out of range. Surgery can cause high blood sugar -If you use CPAP at home when sleeping, continue do so particularly after taking pain medications. Incision Care -Keep your incision clean and dry -Wash your hands with soap and water after using the bathroom -Change your clothes over the incision daily and more often if the wound is draining -Do not soak (tub bath or swimming) until incision is healed-generally 4 weeks. -Remove your hospital dressing tomorrow morning, and leave your incision uncovered at home under your clothing. -Your incisions are closed with glue: May get incision wet starting once you are home. Use mild soap, rub gently, rinse and pat dry. Do not pick at the glue. It may be removed 12-14 days after surgery -When showering, until allowed to get incision wet, cover incision with plastic wrap, pat dry any moisture after removing wrap Pain Control: Much of the pain after back surgery is from the muscles that were moved during your surgery. -Use the muscle relaxant medication you were prescribed after your surgery -Avoid remaining in the same position for long periods, this causes your muscles to tighten. -While it may be painful to change position, get up and walk short distances multiple times a day to keep your muscles loose. -Constipation contributes to back and abdominal pain. As long as you are taking narcotic pain medication, you should also be taking stool softners. These are available without a prescription. Senna-Sis recommended- 1 or 2 tablets twice a day. Additionally a laxative may be needed if you are not having daily BMs- Depending on your preference you can use: Dulcalax pills, or a bulk forming laxativethat you drink- such as Miralax, rectal suppositories (Dulcolax) or a Fleets Enema. Use hot or cold packs to improve your pain: Use small bags of ice wrapped in a clean towel or pillowcase or a bag of frozen peas wrapped in a pillowcase on either side of your incision applied for 15-20 minutes followed by at least a 30 minuterest period. Do not put the ice bags directly over your incision. After 48 hours from your surgical time, if you find cold packs don't help, you can use warm packs (see rice sock information below) wrapped in a clean towel or pillowcase on either side of your incision applied for 15-30 minutes. Do not put the warm pack directly over your incision. Rice socks: Place 2 cups of uncooked long grained rice in a tube sock. Tie open end of sock. Place in microwaveon medium heat for 60 seconds. Wait 60 minutes to reheat in the microwave. Narcotic Pain Medication Use After Spinal Surgery -You have been given prescriptions for narcotic pain medication to last until your followup appt with your surgeon -You may have received more than one prescription, with different dates that they can be filled. -If you have been given multiple prescriptions we recommend that you give your pharmacy all of the prescriptions as soon as you are discharged. When you take them in, discuss with the staff that you have more than one prescription, with fill dates in the future to treat your post operative pain. Ifyou lose a prescription, we can not give you a new one. -Use the first prescription and then have the later prescriptions filled if needed before your follow up appt with your surgeon. -Be aware that pharmacies in [place] can no longer fill prescriptions more than 14 days after the fill(start) date written on the prescription. Safe use of narcotic pain medication: To avoid becoming dependent on your narcotic pain medication, you must only take it when needed to allow you to get up, move, and to do the activities that are permitted after your surgery. -You will not be pain free immediately after your surgery. -As time goes by after your surgery, reduce the number of pills you take at one time and then work to increase the time between taking pills. -You may find it useful to write down and keep a record of when you take your pain medication, as it can be difficult to remember the time or how many you took while on pain medication. -Continue to use non-narcotic pain control methods as well to reduce your need for narcotic pain medication -It is recommended that you always store narcotic pain medication in a secure location to prevent theft. IF you have narcotic pills left over after your recovery it is recommended that you flush themdown a toilet or return them to the pharmacy for disposal (check with pharmacy first, not all can do this) -If you feel that you need a medication refill, you must contact your surgeon's office. The prescriber of your homegoing medications is hospital based and can not provide outpatient refills. Call Your Doctor If You Have -Questions, uncontrolled pain, new weakness or changes in sensation -Signs of infection (redness, swelling, drainage, warmth, increased pain, fever >101,chills) -Nausea, vomiting documented in this [id number] Note* Sign Off Note - Katja Helm MD - 07/20/2022 9:39 AM EST Infectious Disease Sign-Off Indication: Infected baclofen pump status post removal and insertion in a different site on 07/16. Antibiotic: Continue IV Zosyn for a total of 1 week after pump removal. Last day of antibiotic therapy is 07/23/2022 Continue wound care Labs: N/A Imaging: N/A ID Follow-up: As needed. The patient did not have positive [employer] culture or bacteremia. She has localized pocket infection andit was removed. Recommend 1 week of therapy as above. Levaquin would have been a good option but the chart is reporting allergy to Levaquin. So we need to continue with IV therapy. Please call with any questions. Katja Helm MD, pager # [phone] [facility], office # [phone] [id number] Note* Plan of Care - Brenda De La Rosa RN - 07/20/2022 3:00 AM EST Problem: Actual or potential alteration in health Goal: Absence of healthcare acquired conditions Outcome: Met Problem: Pressure Ulcer - Risk of Goal: Absence of pressure ulcer Outcome: Met Problem: Falls, Risk of Goal: Absence of falls Outcome: Met Problem: Actual or potential alteration in health Goal: Knowledge of Interdisciplinary Plan of Care Outcome: Not Met Goal: Knowledge of Enviroment Outcome: Not Met Problem: Pain Goal: Manage acute pain Outcome: Partially Met Goal: Manage chronic pain Outcome: Partially Met Goal: Reduced pain sensation Outcome: Partially Met Goal: Achievement of comfort function goal Outcome: Partially Met [id number] Consult note* Hayden Velazquez DO - 07/19/2022 11:30 AM ESTAssociated Order(s): IP CONSULT TO NEUROLOGY Neurology Inpatient Consult [facility] 07/19/2022 Hayden Velazquez DO [facility] Patient: Claudine Joseph Date of : 1990 (32 y.o. female) Referring Provider: Refer to consult order in electronic medical record PCP: Mairelle Duque MD ASSESSMENT: 32 y.o. female with history of anoxic brain injury, cerebral palsy, chronic kidney disease, epilepsy, spasticity with a baclofen pump presented to [facility] on 07/14/2022 with spasticity and baclofen pump exposure. Pt with breakthrough seizure, this is pretty typical for her per her mother. Likely exacerbated by stress of hospitalization / infection. Would not change AED regimen but would increase PRN valium tomirror closer to her home rescue therapy. Would hold off on EEG monitoring unless she has repeat events. PLAN: #Epilepsy #Breakthrough seizure Seizure: Resolved Etiology: Pre-existing refractory epilepsy Testing: None If becomes febrile or has drastic increase in seizure frequency would obtain CSF to rule out developing meningitis Labs: None Anti-epileptic Medication: Continue Epidiolex 3.5mL via GT BID Continue LTG 250mg BID Continue Keppra 1G BID IV Valium 5mg PRN for breakthrough seizure Seizure Precautions Activity Restrictions: does not apply Eventual Outpatient Follow-up: with established neurologist Other issues: #Baclofen pump exposure #Acute on chronic hypotension #Cerebral Palsy #Chronic respiratory failure Admitted with these risk variables:Anoxic Brain Damage. Please see assessment and plan for further details. Discussed plan with other teams' providers, specifically Dr. chambers. Time statement: A total of 35 minutes were spent on this encounter either in the patient's room or on the patient's hospital unit and over half of that time was spent on [id number] counseling and/or coordination of care. DIAGNOSTIC TESTING SUMMARY: Pending Lab and Radiology Results Order Current Status Blood Culture #1 Preliminary result Blood Culture #2 Preliminary result CSF AFB Culture Preliminary result CSF Anaerobic Culture Preliminary result CSF Fungus Culture Preliminary result Tissue AFB Culture Preliminary result Tissue Anaerobic Culture Preliminary result Tissue Fungus Culture Preliminary result Wound AFB Culture Preliminary result Wound Anaerobic Culture Preliminary result Wound Fungus Culture Preliminary result Resulted Testing: (MRI/CT/XR, EEG, EMG, CSF, Cardiac, Labs) Na 140, K 3.9, Cr 0.34 WBC 9.59, H/H/PLT: 9.7/30.3/193 SUBJECTIVE: Chief Complaint/Reason for Consult: seizure Informant(s): Care Team/Chart History of Present Illness: Claudine Joseph is a 32 y.o. female with past medical history of see below. PT was admitted for baclofen pump issue. She was seen by Dr. Morris signed off on 07/15. Pts presentation was 2/2 baclofen pump exposing through buttock / hip area, she is on ABX. Pt had a seizure today and was given valium. Per nursing, had a seizure event this AM PRIOR to her AM meds. Per mother she has at least daily seizures. Pt is now back to baseline. Review of Systems: Unable to perform ROS due to patient's decreased mental status. History: Past Medical History: Diagnosis Date Acute respiratory failure ([facility]) Due to MRSA pneumonia 04/2016; Allergic rhinitis Anoxic brain damage ([facility]) Aspiration, chronic pulmonary Bowel and bladder incontinence Cerebral palsy ([facility]) Chronic kidney disease Chronic osteomyelitis of pelvic region, right ([facility]) 2018 required right ischial debridement, followed by Dr. Noland of plastics Chronic respiratory failure with hypoxia ([facility]) 3 L NC, followed by Dr. Stephy Cisse and Dr. Amalia Terry Constipation COVID-19 06/2020 Epilepsy ([facility]) followed at [facility] neurology clinic GERD (gastroesophageal reflux disease) occasional vomiting with gagging MRSA (methicillin resistant Staphylococcus aureus) 04/2016 Bilateral lungs Muscle spasticity medically refractory and has baclofen pump since 1999, followed at [facility] neuro baclofen pump clinic Nonverbal Answers yes with very long blinks per adoptive parent PEG (percutaneous endoscopic gastrostomy) status ([facility]) Presence of intrathecal baclofen pump [address] 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 Urine retention occasional occurrence that requires straight cath periodically Wheelchair bound Past Surgical History: Procedure Laterality Date BACK SURGERY 1999 Marrufo rods placed BACLOFEN PUMP IMPLANTATION X 3- last 2009 CHOLECYSTECTOMY INCISION AND DRAINAGE LOWER EXTREMITY Right 12/02/2018 Procedure: INCISION AND DRAINAGE WITH BONE BIOPSY OF RIGHT ISCHIUM; Surgeon: Rad Luque MD; Location: [facility] Main OR; Service: Orthopedic INSERTION PERCUTANEOUS ENDOSCOPIC GASTROSTOMY TUBE INTRATHECAL PUMP REMOVAL Bilateral 07/15/2022 Procedure: REMOVAL OF RIGHT INTRATHECAL PUMP, CATHETER WITH REPLACEMENT ON LEFT SIDE; Surgeon: Jose Portillo MD; Location: [facility] NEURO OR; Service: Neurological LAMINECTOMY DECOMP THORACIC MULTI LEVEL N/A 07/27/2016 Procedure: T1-2 THORACIC FUSION REVISION ; Surgeon: Kb Ramsey MD; Location: [facility] Main OR; Service: REVISION PAIN PUMP N/A 07/27/2016 Procedure: BACLOFEN PUMP REPLACEMENT ; Surgeon: Kb Ramsey MD; Location: [facility] Main OR; Service: SALIVARY GLAND SURGERY Social History: reports that she has never smoked. She has never used smokeless tobacco. She reports that she does not drink alcohol and does not use drugs. Family History Adopted: Yes Family history unknown: Yes Additional History Comments: I was unable to obtain and update history details due to patient's altered mental status and there was no knowledgeable family available. Allergies: Levaquin [levofloxacin], Augmentin [amoxicillin-pot clavulanate], Lactose intolerance [lactase], Penicillins, and Ragweed HOME Medications: Outpatient Medications Marked as Taking for the 07/14/22 encounter (Hospital Encounter) Medication Sig acetaminophen (TYLENOL) 325 MG tablet 650 mg by G-tube route every 6 (six) hours as needed for pain. acetic acid 0.25 % irrigation 120 mL daily Flush for bladder . cannabidioL (Epidiolex) 100 mg/mL Soln 3.5 mL (350 mg total) by G-tube route 2 (two) times a day . cholecalciferol, vitamin D3, 50 mcg (2,000 unit) cap 2,000 Units by G-tube route every morning. diazePAM (VALIUM) 2 MG tablet 3 (three) tablets (6 mg total) by Per G Tube route daily as needed For seizures . diazePAM (Valtoco) 15 mg/2 spray (7.5/0.1mL x 2) Novi Instill 1 spray into each nostril as needed (Seizures, may repeat times 1 in 4 hours) . fluconazole (DIFLUCAN) 150 MG tablet by Per G Tube route When taking antibiotics . fluticasone propionate (FLONASE) 50 mcg/actuation nasal spray Instill 1 (one) spray into each nostril daily as needed for rhinitis . guaiFENesin (ROBITUSSIN) 100 mg/5 mL syrup 200 mg by G-tube route 3 (three) times a day as needed for cough . ipratropium (ATROVENT) 0.02 % nebulizer solution inhale contents of 1 vial in nebulizer twice a dayIF CONGESTED OR WHEEZING OR LABORED CAN TAKE UP TO FOUR TIMES DAILY . lamoTRIgine (LAMICTAL) 100 MG tablet take 1 tablet PER G TUBE twice a day lamoTRIgine (LAMICTAL) 150 MG tablet take 1 tablet PER G TUBE twice a day levETIRAcetam (KEPPRA) 100 mg/mL solution 1,000 mg by Per G Tube route 2 (two) times a day . loratadine (CLARITIN) 10 mg tablet 10 mg by G-tube route every morning . medroxyPROGESTERone (DEPO-PROVERA) 150 mg/mL Syrg INJECT 1ML INTRAMUSCULARLY EVERY 10 TO 13 WEEKS montelukast (SINGULAIR) 10 mg tablet 10 mg by Per G Tube route daily . multivitamin/iron/folic acid (CENTRUM ORAL) 10 mL by G-tube route every morning . omeprazole (PRILOSEC) 40 MG capsule 40 mg by G-tube route every morning . ondansetron (ZOFRAN) 4 mg/5 mL solution 5 mL (4 mg total) by Per G Tube route every 8 (eight) hoursas needed for nausea . polyethylene glycol (MIRALAX) 17 gram powder 17 g by Per G Tube route every morning . promethazine (PHENERGAN) 12.5 MG suppository Insert 12.5 mg into the rectum every 6 (six) hours as needed for nausea. [DISCONTINUED] baclofen 40,000 mcg/20mL (2,000 mcg/mL) Soln Simple continuous infusion ITB at dailydose of 649.8 mcg/day. . HOSPITAL Infusions: sodium chloride 0.9 % 50 mL/hr (07/17/22 3716) HOSPITAL Scheduled Medications: cholecalciferol (vitamin D3) 2,000 Units Tube Daily cannabidioL 3.5 mL G-tube BID famotidine (PEPCID) injection 20 mg Intravenous BID lamoTRIgine 250 mg Tube BID levETIRAcetam 1,000 mg Tube BID linezolid (ZYVOX) IVPB 600 mg Intravenous Q12H loratadine 10 mg Tube QAM montelukast 10 mg Tube Daily pantoprazole 40 mg Intravenous Daily piperacillin-tazobactam (ZOSYN) extended infusion 3.375 g Intravenous Q8H polyethylene glycol 17 g Tube QAM sodium chloride (PF) 5 mL Intravenous Q8H [facility] PRN Medications: acetaminophen, diazepam, diphenhydrAMINE, guaiFENesin, HYDROmorphone, implantable pump, ipratropium, nalOXone AND Notify physician AND naloxone, ondansetron OR ondansetron, ondansetron OR ondansetron, oxyCODONE, Saline lock IV AND sodium chloride (PF) AND sodium chloride (PF) AND sodium chloride 0.9 % OBJECTIVE: Physical Examination: BP 90/62 (BP Location: Right arm, Patient Position: Lying) Pulse (!) 105 Temp 98.1 F (36.7 C) (Oral) Resp (!) 30 Ht 4' 6 Wt 33.8 kg (74 lb 8.3 oz) SpO2 97% BMI 17.97 kg/m CAMEJO: DNFC: Does Not Follow Commands FRANKLIN: Unable to Assess GENERAL: General Appearance: In NAD Eyes: See pupils below Ears: See hearing below Neck: Supple Respiratory Effort: Normal Extremities: No edema Skin: No rashes visualized MENTAL STATUS: Alertness, Attention Span & Concentration: will open eyes to voice at times, attempts to track examiner Language: mute Speech: Mute Orientation: DNFC Memory, Recent & Remote: DNFC Fund of Knowledge: DNFC CRANIAL NERVES: II - Visual Negron: no blink to threat II, III - Pupils: PERRL III, IV, - Eye Movements: eyes move spontaneously with a jerk like nystagmus fashion but able totrack, no gaze preference V - Facial Sensation: DNFC VII - Face Symmetry and Strength: DNFC VIII - Hearing: DNFC IX, X - Palate: DNFC XI - Shoulder Shrug: DNFC XII - Tongue Protrusion: Normal COORDINATION & GROSS MOTOR: Abnormal Movements: None Coordination Wvlatn-vc-Elfz: DNFC Coordination: Nrgn-Vbiq-Tfku:DNFC Rapid Alternating Movements: DNFC Drift: None Tone: increased throughout Bulk: decreased throughout MOTOR - MUSCLE STRENGTH: Pt contracted of all 4 limbs, did not apply painful stimulus for patient comfort REFLEXES: deferred SENSATION: No response to light touch Hayden Velazquez D.O., ABPN Vascular Neurologist [facility] [employer] Work Phone: 1(190) 235-856811-20-2022 Note* Quick Note - Katlin Cano CNP - 07/19/2022 11:06 AM EST Notified by [facility] te[facility] that patient had L gaze preference w/ nystagmus, and arm/leg twitching forapprox 2 minutes. Neurology has been consulted. [employer] Work Phone: 1(473) 487-903211-20-2022 Note* Quick Note - Leeanne Marshall RN - 07/19/2022 9:54 AM EST At 0954 this RN entered pts room because tele alarm was going off for HR >140. HR was approx 144& pt noted with sz like activity. Pt had L gaze preference w/ nystagmus, and arm/leg twitching for approx 2 minutes. O2 sats noted at 88% on 2L NC. O2 increased to 6L NC and sat returned to 100%.Oral sxning performed & PRN IV valium administered. Dr Chambers notified and came to bedside toeval. Neuro c/s placed. [id number] Note* Plan of Care - Kerry Escalera RN - 07/19/2022 1:45 AM EST Problem: Actual or potential alteration in health Goal: Absence of healthcare acquired conditions Outcome: Partially Met Goal: Knowledge of Interdisciplinary Plan of Care Outcome: Partially Met Goal: Knowledge of Enviroment Outcome: Partially Met Problem: Pain Goal: Manage acute pain Outcome: Partially Met Goal: Manage chronic pain Outcome: Partially Met Goal: Reduced pain sensation Outcome: Partially Met Goal: Achievement of comfort function goal Outcome: Partially Met Problem: Pressure Ulcer - Risk of Goal: Absence of pressure ulcer Outcome: Partially Met Problem: Falls, Risk of Goal: Absence of falls Outcome: Partially Met [id number] Note* Sign Off Note - Marcelino Lofton CNP - 07/18/2022 4:28 PM EST Gastroenterology Sign-Off Discharge Medications: N/A Diet Tf per RD recommendations Follow-up Procedures/Testing: N/A Follow-up Imaging: N/A Follow-up Labs: N/A Follow-up Appointment: As needed. No further IP GI w/u planned at this time. Will sign off from GI. Please call if further assistanceis needed in future. Marcelino Lofton CNP [place] [id number] Consult note* Karen Harris MD - 07/17/2022 8:24 AM ESTAssociated Order(s): IP CONSULT TO INFECTIOUS DISEASES Resident Consult Note Patient Name: Claudine Joseph : 1990 Admit Date: [id number] Assessment and Plan Patient is a 32 y.o. female with a past medical history significant for cerebral palsy s/p baclofenpump, quadriplegia, chronic urinary retention with sage, dysphagia s/p PEG tube, epilepsy, who presented to [facility] 07/14/2022 for exposed baclofen pump. ID consulted for assistance with empiric antibiotics. Baclofen pump Infection Initially placed 2015. Removed and exchanged by neurosurgery 07/15 - blood cx 07/16 NGTD - tissue cx 07/15 Strep agalactiae - wound cx 07/15 with rare pseudomonas and strep agalactiae - CSF cx 07/15, NGTD, gram stain with no organisms - WBC >12 on admit, now WNL - with red man syndrome reaction with vancomycin infusion. Plan: continue Linezolid for empiric coverage, f/u cultures. Ok to continue IV today with switch Alexia tomorrow. Re-added Zosyn now that wound culture is growing pseudomonas Plan not finalized until attested by Attending Physician Karen Harris MD Internal Medicine PGY-3 Pager: [phone] Chief Complaint: exposed baclofen pump History of Present Illness Claudine Joseph is a 32 y.o. female with pmh of cerebral palsy, anoxic brain injury, uadriplegia, chronic urinary retention with sage, dysphagia s/p PEG tube, epilepsy, who presented to [facility] 07/14/2022 for exposed baclofen pump. ID consulted for assistance with empiric antibiotics. Neurosurgery performed removal of baclofen pump and replacement on 07/15. Cultures from wound and CSF were sent. Patient received Vancomycin and developed red skin ~ 10 minutes after infusion. Re-occurred with slower infusion rate. Patient placed on Linezolid and Zosyn instead 07/17. Past Medical/ Surgical/ Social/ Family History Past Medical History: Diagnosis Date Acute respiratory failure ([facility]) Due to MRSA pneumonia 04/2016; Allergic rhinitis Anoxic brain damage ([facility]) Aspiration, chronic pulmonary Bowel and bladder incontinence Cerebral palsy ([facility]) Chronic kidney disease Chronic osteomyelitis of pelvic region, right ([facility]) 2018 required right ischial debridement, followed by Dr. Noland of plastics Chronic respiratory failure with hypoxia ([facility]) 3 L NC, followed by Dr. Stephy Cisse and Dr. Amalia Terry Constipation COVID-19 06/2020 Epilepsy ([facility]) followed at [facility] neurology clinic GERD (gastroesophageal reflux disease) occasional vomiting with gagging MRSA (methicillin resistant Staphylococcus aureus) 04/2016 Bilateral lungs Muscle spasticity medically refractory and has baclofen pump since 1999, followed at [facility] neuro baclofen pump clinic Nonverbal Answers yes with very long blinks per adoptive parent PEG (percutaneous endoscopic gastrostomy) status ([facility]) Presence of intrathecal baclofen pump [address] 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 Urine retention occasional occurrence that requires straight cath periodically Wheelchair bound Past Surgical History: Procedure Laterality Date BACK SURGERY 1999 Marrufo rods placed BACLOFEN PUMP IMPLANTATION X 3- last 2009 CHOLECYSTECTOMY INCISION AND DRAINAGE LOWER EXTREMITY Right 12/02/2018 Procedure: INCISION AND DRAINAGE WITH BONE BIOPSY OF RIGHT ISCHIUM; Surgeon: Rad Luque MD; Location: [facility] Main OR; Service: Orthopedic INSERTION PERCUTANEOUS ENDOSCOPIC GASTROSTOMY TUBE INTRATHECAL PUMP REMOVAL Bilateral 07/15/2022 Procedure: REMOVAL OF RIGHT INTRATHECAL PUMP, CATHETER WITH REPLACEMENT ON LEFT SIDE; Surgeon: Jose Portillo MD; Location: [facility] NEURO OR; Service: Neurological LAMINECTOMY DECOMP THORACIC MULTI LEVEL N/A 07/27/2016 Procedure: T1-2 THORACIC FUSION REVISION ; Surgeon: Kb Ramsey MD; Location: [facility] Main OR; Service: REVISION PAIN PUMP N/A 07/27/2016 Procedure: BACLOFEN PUMP REPLACEMENT ; Surgeon: Kb Ramsey MD; Location: [facility] Main OR; Service: SALIVARY GLAND SURGERY Family History Adopted: Yes Family history unknown: Yes Social History Socioeconomic History Marital status: Single Tobacco Use Smoking status: Never Smokeless tobacco: Never Vaping Use Vaping Use: Never used Substance and Sexual Activity Alcohol use: No Drug use: No Patient Allergies I have reviewed the patient's allergies. Levaquin [levofloxacin], Augmentin [amoxicillin-pot clavulanate], Lactose intolerance [lactase], Penicillins, and Ragweed Patient Review of Systems Review of Systems Unable to perform ROS: Patient nonverbal Physical Exam Vital Signs: BP 94/61 (BP Location: Right arm, Patient Position: Lying) Pulse 87 Temp 98.1 F (36.7 C) (Axillary) Resp (!) 20 Ht 4' 6 Wt 33.8 kg (74 lb 8.3 oz) SpO2 100% BMI 17.97 kg/m Physical Exam Constitutional: Comments: nonverbal HENT: Head: Normocephalic and atraumatic. Mouth/Throat: Mouth: Mucous membranes are moist. Pharynx: Oropharyngeal exudate present. Eyes: Extraocular Movements: Extraocular movements intact. Pupils: Pupils are equal, round, and reactive to light. Comments: Nystagmus present Cardiovascular: Rate and Rhythm: Normal rate and regular rhythm. Pulmonary: Breath sounds: No wheezing. Comments: Coarse breath sounds Abdominal: General: Abdomen is flat. There is no distension. Palpations: Abdomen is soft. Comments: PEG tube in place. Bandage placed in LLQ Musculoskeletal: Right lower leg: No edema. Left lower leg: No edema. Comments: Muscle atrophy present bilateral LE. Contractures present bilateral UE Skin: General: Skin is warm and dry. Neurological: Mental Status: She is alert. Comments: Nonverbal. Unable to follow commands. Additional Data - Labs/ Radiology/ etc. Recent Labs 07/15/22 0331 07/16/22 0632 07/16/22 2100 07/17/22 0510 NA 138 142 -- 146* K 4.2 3.4* 3.4* 2.9* CL 105 108 -- 111* BICARB 21 26 -- 27 BUN 14 8 -- 3* CREATININE 0.29* 0.34* -- 0.25* GLUCOSE 100* 88 -- 90 Recent Labs 07/15/22 0331 07/16/22 0710 07/17/22 0510 WBC 12.17* 10.14 9.59 HGB 14.3 10.3* 9.7* HCT 47.2* 32.4* 30.3* PLT 278 190 193 Lab Results Component Value Date ALT 20 10/17/2021 AST 16 10/17/2021 ALKPHOS 190 (H) 10/17/2021 BILITOT <0.2 10/17/2021 ALBUMIN 4.4 10/17/2021 Recent Labs 07/15/22 0948 INR 1.0 No results found for: HGBA1C Patient Home Medications No current outpatient medications on file. Associated attestation - Katja Helm MD - 07/17/2022 12:13 PM EST Patient was seen, examined, & discussed with our medical underwriter. I agree with the outlined history, examination, impression, & plan. Briefly, 32-year-old female with severe cerebral palsy, quadriplegic, has a baclofen pump for many years, currently with pocket infection requiring removal and reimplantation in a different area. Culture is growing group B strep and Pseudomonas. On physical exam the patient is afebrile, nonverbal at baseline. Abdomen is benign with PEG tube, new pump site is clean and healing well. Old pump site with dressing. Agree with linezolid and Zosyn for now, we will de-escalate antibiotic pending further culture results. Most likely we will change to oral therapy upon discharge. Please call with questions. Katja Helm MD, pager # [phone] [facility] Infectious Diseases, office # [phone] [facility] Work Phone: 1(255) 804-248711-18-2022 Note* ED Attestation Note - Fernando Camacho MD - 07/17/2022 6:12 AM EST This patient was assessed by both physician and an APC. Personally evaluated examined the patient. Performed all aspects of the MDM as documented. Patient's baclofen pump right lateral abdomen is exposed. Will be hospitalized at this time for neurosurgeon consultation and likely removal. . . [id number] Note* Quick Note - Kendall Salgado RN - 07/17/2022 2:41 AM EST Patient was given benadryl before starting vancomycin dose this evening due to prior red man syndrome reaction to the ATB. Patient showed no s/s until about an hour in and started to present with thesyndrome again. The ATB was stopped and fluids started, patients in no clear distress and is okay. Called [facility] doctor supervisor telephone information and reached out to pharmacy to see if they had any recommendations on wh at to do with the vancomycin. [id number] Note* Quick Note - Nava Renteria RN - 07/16/2022 6:57 PM EST Epidiolex (cannabidol) given to 5 silver TAMMY Dwyer. [id number] Note* Quick Note - Nava Renteria RN - 07/16/2022 6:26 PM EST Patient transferred out of unit to room 55 with Patient arrives on unit with wheelchair, oxygen tank, clothes, home slade pad, blankets and two bags full of yarn Verified with second associate, Newton Lovelace RN [id number] Evaluation + Plan note* Assessment & Plan Note - Marcelino Rocha MD - 07/16/2022 2:39 PM ESTAssociated Problem(s): S/P percutaneous endoscopic gastrostomy (PEG) tube placement (HCC) Assessment: Ms. Claudine Joseph is a 32 y.o. 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 This was exchanged yesterday 07/15 by neurosurgery. We have been consulted about leakage from PEG site. 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 This was closed by [facility] November 2021 with an OTS clip and suture. She has a PEG placed at a new site that has been functioning well. On the floor this afternoon nursing staff noticed some leakage at the prior site. Mother reports that since November she has still has some persistent leakage at the priorPEG site. They see a local surgeon in [place] who has been very happy with overall closure. She still has had some ongoing leakage but this has improved with time. Mother typically has been using some Silvercel dressing and gauze. She does continuous TF with Promote (lactose intolerance). No concerns at home. Plan: Okay to wait for mom to get to hospital to resume tube feeds and ensure that amount of leakage consistent with what happens at home. Current PEG has otherwise functioned without concern. Motherhas been happy with surgical group in [place]. If she has heightened concerns for leakage can further re- evaluate potential EGD / surgical consultation. We will follow up tomorrow. [id number] Consult note* Zeke Turk CNP - 07/16/2022 2:31 PM EST Neurocritical Care Transfer Note Claudine Joseph is a 32 y.o. 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 The patient has scoliosiswhich causes her to lay on her right side, where the baclofen pump was located. She arrives to [facility] on POD 0 s/p removal of right intrathecal pump, with replacement on the left side, and cultures of the pocket & CSF were collected. The new left-sided pump should be functioning but keeping in NCCovernight to monitor for WD. Admitted with these risk variables:Brain Injury without Return of Consciousness and Anoxic Brain Damage. Please see assessment and plan for further details. Assessment and Plan NEUROLOGIC Intrathecal Baclofen Pump Erosion/Infection Risk/Concern of Baclofen Withdrawal - History of spastic CP and quadriplegia s/p baclofen pump placement many years ago (Last revised at [facility] with Dr Ramsey in 2016). - Baseline: Non-verbal, blinks for yes. Spastic with baclofen pump as above. Contractured. Neurogenic bladder with chronic Sage. Dysphagia with chronic PEG for all meds and TFs. - Presents to [facility] ED on 07/14/22 with c/o baclofen pump being eroded through the abdominal pocket. The patient has scoliosis which causes her to lay on her right side, where the baclofen pump was located. - Per NSGY consult note: The original pump was interrogated and was still working. Reportedly, there was a small amount of fluid coming from the pocket. She may also need additional surgery with plastics if the pocket does not close appropriately. - To [facility] on POD 1 s/p removal of right intrathecal pump, with replacement on the left side, and cultures of the pocket & CSF were collected. The new left-sided pump should be functioning but keeping in NCC overnight to monitor for WD. - Neurology signed off - Plans to follow-up in the spasticity clinic with Dr. Estuardo Moncada Epilepsy - Per history - Continue home lamictal, keppra and Epidiolex - Patients mother reports that it is very common for the patient to have a seizure upon awakening in the morning. Seizures are described to be as arms tensing upwards and roving eye movements. Motheris able to administer intranasal valium, which is reportedly very effective - will substitute for PRN IV valium. Cerebral Palsy - Per history, secondary to anoxic brain injury at - Baseline: Non-verbal, blinks for yes. Spastic with baclofen pump as above. Contractured. Neurogenic bladder with chronic Sage. Dysphagia with chronic PEG for all meds and TFs. CARDIOVASCULAR Mild Hypotension - Patient with SBP between 88-101 but MAP has been persistently > 70. - MAP goal > 65 Rhythm stable. 06/2017 TTE: EF 70%, overall normal study. 07/15/2022 EKG: NSR. PULMONARY BiPAP was ordered for Chronic Hypoxia Respiratory Failure; however, the patient does not have the BUE mobility or strength to remove mask herself in an emergency. Thus, will continue with supplemental oxygen via nasal cannula. Protecting airway at this time. RENAL Na 142, K 3.4, Cr 0.34 / BUN 8. ERP in place. Monitor UOP. Patient has a chronic indwelling sage catheter. HEMATOLOGIC Hgb 10.3 / HCT 32.4, Plt 190, INR 1. ID Leukocytosis - Secondary to thecal pump erosion through skin - Afebrile Tm < 99.5, WBC 10.14. - 07/15 multiple intra-op cultures sent and pending - Continue empiric vancomycin per NSGY (please see significant event note) - May need to consider ID consult for long-term antibiotic management ENDOCRINE Monitor for SSI needs. BG goal 80-180, most recently between 73-117. GI / NUTRITION Dysphagia - Per history - Patients mother confirms that the patient is strictly NPO per oral route, has a PEG tube for tubefeeds. Per previous RD notes, patient was receiving Promote @ 55 ml/hr. - Likely old PEG site with increased drainage per bedside staff. GI consulted to evaluate. Hold tube feeds until cleared by GI. Bowel regimen: continue miralax. Last BM KETTLE GIRL. PROPHYLAXIS - Continue home PPI. - SCDs, consider chemoprophylaxis 07/16. PT/OT: Ok for therapy. SW: Consulted. SHARON: TBD. CODE STATUS / FAMILY - Full Code, discussed with patients adoptive mother, Peg Joseph. Plan discussed with [facility] attending Dr. Magdaleno. [facility] to be the accepting service upon transfer from [facility]. Zeke Turk CNP Neurocritical Care Subjective / Events: Slight hypotension this AM likely baseline. Levo used for several hours, quickly weaned off. In setting of Hgb drop, concern for active bleed --> CT A/P without acute hemorrhage. Incidental finding of communication of the distal gastric antrum to the skin surface at the midline. Likely old PEG site with increased drainage per bedside staff. GI consulted to evaluate. Hold tube feeds until cleared by GI. No further critical care needs, [facility] consulted, ok for transfer from [facility]. Review of Systems: [] CV, Resp, GI, Neuro, and all other systems reviewed and negative other than listed above. [x] Unable to obtain review of systems due to intubation, critically ill condition, and/or neurologic status. Exam Vital Signs: Temp: [97.7 F (36.5 C)-99.6 F (37.6 C)] 98.8 F (37.1 C) Heart Rate: [55-120] 93 Resp: [12-45] 22 BP: (79-139)/(50-86) 86/61 I/O last 3 completed shifts: In: 1696.4 [I.V.:1368.8; IV Piggyback:327.6] Out: 985 [Urine:875; Drains:10; Blood:100] Exam taken upon arrival to [facility]. General: Eyes open. Does not appear to be acutely ill or in any distress. Chronically ill appearing. Head/Neck: Head - Normocephalic. Eyes - Sclerae anicteric. Ears - External ears normal. Nose - Normal with NC in place. Mouth - Mucous membranes dry. Neck - trachea is midline. Cardiovascular: Regular rate and rhythm. No clicks, rubs, murmurs, or gallops noted. Peripheral extremity pulses are palpable. Respiratory: Respiratory effort unlabored without accessory muscle use. Lung sounds are diminished to ascultation bilaterally without wheezes, rales, or rhonchi. Abdominal: Soft, nondistended, nontender, decreased bowel sounds. PEG tube noted to LUQ. LLQ with surgical dressing from recently implanted baclofen pump. RLQ with surgical drain in place. Right hip/backside with surgical dressing in place. Musculoskeletal: No obvious long bone deformity. Extremities: Well perfused. No clubbing, cyanosis, or edema noted. Neurological: Eyes are open. Appears to be regarding examiner. Does not follow commands but that isbaseline. Contractured to all 4 extremities. Mother states that patient is able to blink for yes. Skin: Normal turgor, well-hydrated, no diffuse rash appreciated. Clinical Data: [x] Lab, Micro data reviewed. [x] Most recent imaging reviewed. No results for input(s): PHART, WJA6FLB, PO2ART, A4GKFVRY, RESPRATE, TIDALVOL, PEEP, I0HYTZSH in the last 72 hours. Recent Labs 07/15/22 0331 07/16/22 0710 WBC 12.17* 10.14 HGB 14.3 10.3* PLT 278 190 Recent Labs 07/15/22 0331 07/16/22 0632 NA 138 142 K 4.2 3.4* CL 105 108 BICARB 21 26 BUN 14 8 CREATININE 0.29* 0.34* GLUCOSE 100* 88 MG -- 2.1 CALCIUM 9.7 -- Lab Results Component Value Date LACTICACID 2.9 (H) 11/28/2018 LACTICACID 2.9 (H) 11/28/2018 LACTICACID 1.3 11/21/2016 Recent Labs 07/15/22 0948 INR 1.0 PTT 27 Labs Last Refreshed: CBC - 07/16/2022, BMP - 07/16/2022, CMP - - -, Coag - 07/15/2022 Associated attestation - Nannette Magdaleno MD - 07/16/2022 6:14 PM EST I have independently examined and reviewed this case and discussed the assessment and plan of care with the YUDY. The YUDY completed the initial history taking and physical examination. The assessment and plan were coordinated with myself and I independently completed a separate history and physical examination in a face to face encounter. I agree with the assessment and plan as provided in the note with clarifications/exceptions noted below. Patient seen and examined on rounds this afternoon. Appears to be at neurologic baseline. Eyes opento voice, directs gaze. Contractures of limbs noted. Baclofen use with implanted pump replacement: Appears to be receiving adequate dosing. Continue supportive care. Hypotension: Likely post operative. CT A/P without hemorrhage and subsequently off norepinephrine gtt. Continue empiric antibiotics for now, consider ID consultation. Transfer to floor. Nannette Magdaleno MD, DS, FN Neurocritical Care 07/16/22 6:10 PM [facility] Work Phone: [phone] 718-491211-17-2022 Consult note* Marcelino Rocha MD - 07/16/2022 2:08 PM ESTAssociated Order(s): IP CONSULT TO GASTROENTEROLOGY GASTROENTEROLOGY/HEPATOLOGY CONSULT NOTE 4 Patient Name: Claudine Joseph Admit Date: [id number] Date of Consult: 07/16/22 MR #: [id number] : 1990 Physicians: Marielle Duque MD (Family); No ref. provider found (Referring) Consult Ordered By: Zeke Turk CNP Assessment and Plan: Other S/P percutaneous endoscopic gastrostomy (PEG) tube placement (HCC) Assessment & Plan Assessment: Ms. Claudine Joseph is a 32 y.o. 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 This was exchanged yesterday 07/15 by neurosurgery. We have been consulted about leakage from PEG site. 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 This was closed by [facility] November 2021 with an OTSC clip and suture. She has a PEG placed at a new site that has been functioning well. On the floor this afternoon nursing staff noticed some leakage at the prior site. Mother reports that since November she has still has some persistent leakage at the priorPEG site. They see a local surgeon in [place] who has been very happy with overall closure. She still has had some ongoing leakage but this has improved with time. Mother typically has been using some Silvercel dressing and gauze. She does continuous TF with Promote (lactose intolerance). No concerns at home. Plan: Okay to wait for mom to get to hospital to resume tube feeds and ensure that amount of leakage consistent with what happens at home. Current PEG has otherwise functioned without concern. Motherhas been happy with surgical group in [place]. If she has heightened concerns for leakage can further re- evaluate potential EGD / surgical consultation. We will follow up tomorrow. Chief Complaint/Reason for Visit: Fluid leakage from unknown abdominal site, appears to possibly be previous peg tube site? Drainage increased with current PEG tube site. Holding feeds and PO meds for now. History of Present Illness: Ms. Claudine Joseph is a 32 y.o. 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 This was exchanged yesterday 07/15 by neurosurgery. We have been consulted for leakage from prior PEG site. Nursing staff noted some leakage around presumed prior PEG site when they went to flush the active PEG site. Chart reviewed as well as contacted patient's mother by phone. She had a prior standing PEG that was in place over a decade. In November 2021 at [facility] she had an EGD for [facility] closure of fistula. The examined esophagus was normal. There was evidence of an intact gastrostomy with a patent G-tubepresent in the gastric body. This was characterized by healthy appearing mucosa. The PEG required exchange for a low-profile tube. The PEG was cut externally, grasped, and removed with the scope. Removal was easily accomplished. An externally removable 24 Fr Avanos QUE-CAMEJO low-profile gastrostomy tube was lubricated. The replacement tube was placed using the existing gastrostomy port. The balloonwas inflated with 6 cc of sterile water The final position of the gastrostomy tube was confirmed byrelook endoscopy, and skin marking noted to be 3.5 cm at the external bumper. The final tension and compression of the abdominal wall by the PEG tube and external bumper were checked and revealed that the bumper was loose and lightly touching the skin. The tube was capped, and the tube site was cleaned and dressed. Estimated blood loss was minimal. A suture and [id number]-mtped-clip was found in the gastric body at the site of the prior PEG tube. There was no persistent fistula seen. The examinedduodenum was normal. Mother reports that ever since then she has also followed with a local surgeon in [place] who has been very happy with overall closure. She still has had some ongoing leakage but this has improved with time. Mother typically has been using some Silvercel dressing and gauze. She does continuousTF with Promote (lactose intolerance). History: Past Medical History: Diagnosis Date Acute respiratory failure ([facility]) Due to MRSA pneumonia 04/2016; Allergic rhinitis Anoxic brain damage ([facility]) Aspiration, chronic pulmonary Bowel and bladder incontinence Cerebral palsy ([facility]) Chronic kidney disease Chronic osteomyelitis of pelvic region, right ([facility]) 2019 required right ischial debridement, followed by Dr. Noland of plastics Chronic respiratory failure with hypoxia ([facility]) 3 L NC, followed by Dr. Stephy Cisse and Dr. Amalia Terry Constipation COVID-19 06/2020 Epilepsy ([facility]) followed at [facility] neurology clinic GERD (gastroesophageal reflux disease) occasional vomiting with gagging MRSA (methicillin resistant Staphylococcus aureus) 04/2016 Bilateral lungs Muscle spasticity medically refractory and has baclofen pump since 1999, followed at [facility] neuro baclofen pump clinic Nonverbal Answers yes with very long blinks per adoptive parent PEG (percutaneous endoscopic gastrostomy) status ([facility]) Presence of intrathecal baclofen pump [address] 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 Urine retention occasional occurrence that requires straight cath periodically Wheelchair bound Past Surgical History: Procedure Laterality Date BACK SURGERY 1999 Marrufo rods placed BACLOFEN PUMP IMPLANTATION X 3- last 2009 CHOLECYSTECTOMY INCISION AND DRAINAGE LOWER EXTREMITY Right 12/02/2018 Procedure: INCISION AND DRAINAGE WITH BONE BIOPSY OF RIGHT ISCHIUM; Surgeon: Rad Luque MD; Location: [facility] Main OR; Service: Orthopedic INSERTION PERCUTANEOUS ENDOSCOPIC GASTROSTOMY TUBE INTRATHECAL PUMP REMOVAL Bilateral 07/15/2022 Procedure: REMOVAL OF RIGHT INTRATHECAL PUMP, CATHETER WITH REPLACEMENT ON LEFT SIDE; Surgeon: Jose Portillo MD; Location: [facility] NEURO OR; Service: Neurological LAMINECTOMY DECOMP THORACIC MULTI LEVEL N/A 07/27/2016 Procedure: T1-2 THORACIC FUSION REVISION ; Surgeon: Kb Ramsey MD; Location: [facility] Main OR; Service: REVISION PAIN PUMP N/A 07/27/2016 Procedure: BACLOFEN PUMP REPLACEMENT ; Surgeon: Kb Ramsey MD; Location: [facility] Main OR; Service: SALIVARY GLAND SURGERY Family History Adopted: Yes Family history unknown: Yes GI Specific Family History: Unable to obtain due to patient's clinical status Social History Socioeconomic History Marital status: Single Tobacco Use Smoking status: Never Smokeless tobacco: Never Vaping Use Vaping Use: Never used Substance and Sexual Activity Alcohol use: No Drug use: No Allergy Information: I have reviewed the patient's allergies. Levaquin [levofloxacin], Augmentin [amoxicillin-pot clavulanate], Lactose intolerance [lactase], Penicillins, and Ragweed Home Medications: Outpatient Medications as of 07/16/2022 Medication Sig acetaminophen (TYLENOL) 325 MG tablet 650 mg by G-tube route every 6 (six) hours as needed for pain. acetic acid 0.25 % irrigation 120 mL daily Flush for bladder . cannabidioL (Epidiolex) 100 mg/mL Soln 3.5 mL (350 mg total) by G-tube route 2 (two) times a day . cholecalciferol, vitamin D3, 50 mcg (2,000 unit) cap 2,000 Units by G-tube route every morning. diazePAM (VALIUM) 2 MG tablet 3 (three) tablets (6 mg total) by Per G Tube route daily as needed For seizures . diazePAM (Valtoco) 15 mg/2 spray (7.5/0.1mL x 2) Novi Instill 1 spray into each nostril as needed (Seizures, may repeat times 1 in 4 hours) . fluconazole (DIFLUCAN) 150 MG tablet by Per G Tube route When taking antibiotics . fluticasone propionate (FLONASE) 50 mcg/actuation nasal spray Instill 1 (one) spray into each nostril daily as needed for rhinitis . guaiFENesin (ROBITUSSIN) 100 mg/5 mL syrup 200 mg by G-tube route 3 (three) times a day as needed for cough . ipratropium (ATROVENT) 0.02 % nebulizer solution inhale contents of 1 vial in nebulizer twice a dayIF CONGESTED OR WHEEZING OR LABORED CAN TAKE UP TO FOUR TIMES DAILY . lamoTRIgine (LAMICTAL) 100 MG tablet take 1 tablet PER G TUBE twice a day lamoTRIgine (LAMICTAL) 150 MG tablet take 1 tablet PER G TUBE twice a day levETIRAcetam (KEPPRA) 100 mg/mL solution 1,000 mg by Per G Tube route 2 (two) times a day . loratadine (CLARITIN) 10 mg tablet 10 mg by G-tube route every morning . medroxyPROGESTERone (DEPO-PROVERA) 150 mg/mL Syrg INJECT 1ML INTRAMUSCULARLY EVERY 10 TO 13 WEEKS montelukast (SINGULAIR) 10 mg tablet 10 mg by Per G Tube route daily . multivitamin/iron/folic acid (CENTRUM ORAL) 10 mL by G-tube route every morning . omeprazole (PRILOSEC) 40 MG capsule 40 mg by G-tube route every morning . ondansetron (ZOFRAN) 4 mg/5 mL solution 5 mL (4 mg total) by Per G Tube route every 8 (eight) hoursas needed for nausea . polyethylene glycol (MIRALAX) 17 gram powder 17 g by Per G Tube route every morning . promethazine (PHENERGAN) 12.5 MG suppository Insert 12.5 mg into the rectum every 6 (six) hours as needed for nausea. Review of Systems: Unable to obtain history or review of systems secondary to clinical circumstances Physical Examination: Vital Signs: Temp: [97.7 F (36.5 C)-99.6 F (37.6 C)] 98.8 F (37.1 C) Heart Rate: [55-120] 93 Resp: [12-45] 22 BP: (79-139)/(50-86) 86/61 CONSTITUTIONAL: chronically ill, NAD HEENT: Normocephalic, atraumatic, trach in place CARDIAC: Regular rate & rhythm. LUNGS: Clear to auscultation anteriorly ABDOMEN: Flat, negative hepatosplenomegaly, soft and non-tender. Low profile James in place. Just to the right of this old PEG site with scan drainage noted with small opening at skin - approx 3 mm SKIN: No jaundice NEURO: No asterixis PSYCHIATRIC: opens eyes to command, non verbal EXTREMITIES: No evidence of edema, cyanosis. Laboratory and Additional Data Reviewed: Laboratory 07/16/22 2:54 PM Microbiology 07/16/22 2:54 PM Pathology 07/16/22 2:54 PM Radiology 07/16/22 2:54 PM Cardiology 07/16/22 2:54 PM Medications 07/16/22 2:54 PM Transcriptions 07/16/22 2:54 PM Results from last 7 days Lab Units 07/16/22 0710 07/15/22 0331 WBC K/mcL 10.14 12.17* HGB g/dL 10.3* 14.3 HCT % 32.4* 47.2* PLT K/mcL 190 278 Results from last 7 days Lab Units 07/16/22 0632 07/15/22 0331 SODIUM mmol/L 142 138 POTASSIUM mmol/L 3.4* 4.2 CHLORIDE mmol/L 108 105 BUN mg/dL 8 14 CREATININE mg/dL 0.34* 0.29* CALCIUM mg/dL -- 9.7 GLUCOSE mg/dL 88 100* Results from last 7 days Lab Units 07/15/22 0948 INR 1.0 Marcelino Rocha MD Gastroenterology [id number] Consult note* Celia Jeronimo, RD - 07/16/2022 12:46 PM ESTAssociated Order(s): IP CONSULT TO DIETITIAN Nutrition Care Initial Assessment Reason for visit: Physician Consult for Tube feeding, initiate and manage Nutrition Diagnosis: Swallowing difficulty related to fci dysphagia as evidenced by NPO/PEG. Nutrition Intervention: Initiate Enteral Nutrition Nutrition Prescription: Diet: NPO Tube Feeding: GI consulted d/t leakage from previous PEG site, EN on hold until evaluated. When able: Promote via: PEG @ goal of 45ml/hr to provide 1080kcal, 68g protein, 906ml h2O. Nutrition Goals: Pt will receive 80% of prescribed tube feeding volume Start Date:07/16/2022 Expected End Date:07/20/2022 Nutrition Education: No needs at this time Assessment: Pertinent clinical information: POD#1 removal of R intrathecal pump with replacement on the left side. Pt with hx of spastic CP, chronic dysphagia/PEG tube, anoxic brain damage and epilepsy. Past Medical History: Diagnosis Date Acute respiratory failure (HCC) Due to MRSA pneumonia 04/2016; Allergic rhinitis Anoxic brain damage ([facility]) Aspiration, chronic pulmonary Bowel and bladder incontinence Cerebral palsy ([facility]) Chronic kidney disease Chronic osteomyelitis of pelvic region, right ([facility]) 2019 required right ischial debridement, followed by Dr. Noland of plastics Chronic respiratory failure with hypoxia ([facility]) 3 L NC, followed by Dr. Stephy Cisse and Dr. Amalia Terry Constipation COVID-19 06/2020 Epilepsy ([facility]) followed at [facility] neurology clinic GERD (gastroesophageal reflux disease) occasional vomiting with gagging MRSA (methicillin resistant Staphylococcus aureus) 04/2016 Bilateral lungs Muscle spasticity medically refractory and has baclofen pump since 1999, followed at [facility] neuro baclofen pump clinic Nonverbal Answers yes with very long blinks per adoptive parent PEG (percutaneous endoscopic gastrostomy) status ([facility]) Presence of intrathecal baclofen pump [address] 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 Urine retention occasional occurrence that requires straight cath periodically Wheelchair bound Height: 4' 6 Current weight: 33.8 kg (74 lb 8.3 oz) BMI Body mass index is 17.97 kg/m . Wt Readings from Last 5 Encounters: 07/16/22 33.8 kg (74 lb 8.3 oz) 02/27/22 36.3 kg (80 lb) 01/14/22 36.3 kg (80 lb) 11/30/21 37.2 kg (82 lb) 10/17/21 38.6 kg (85 lb) Current diet order: NPO Home EN: Receives 1 liter of Promote/day at home (1000kcal, 63g protein) Patient/family comments: no family present Difficulty Chewing/Swallowing: Yes Skin Integrity: multiple wounds: sacral, buttock, previous pump placement, previous PEG. ET to see GI Function: BM x2 Nutrition Focus Physical Exam Type: deferred at this time Labs: Recent Labs 07/16/22 0632 NA 142 K 3.4* BICARB 26 CL 108 GLUCOSE 88 BUN 8 CREATININE 0.34* MG 2.1 Scheduled Meds: cholecalciferol (vitamin D3) 2,000 Units Tube Daily cannabidioL 3.5 mL G-tube BID famotidine (PEPCID) injection 20 mg Intravenous BID lamoTRIgine 250 mg Tube BID levETIRAcetam 1,000 mg Tube BID loratadine 10 mg Tube QAM montelukast 10 mg Tube Daily pantoprazole 40 mg Intravenous Daily polyethylene glycol 17 g Tube QAM potassium bicarbonate 50 mEq Tube Once potassium chloride 40 mEq Intravenous Once sodium chloride (PF) 5 mL Intravenous Q8H ISSAC sodium chloride 0.9% 500 mL Intravenous Once vancomycin 750 mg Intravenous Q8H [START ON 07/17/2022] vancomycin 750 mg Intravenous Q12H Continuous Infusions: norEPINEPHrine (LEVOPHED) infusion Stopped (07/16/22 3426) sodium chloride 0.9 % Stopped (07/15/22 191) sodium chloride 0.9 % 75 mL/hr (07/16/22 1159) Estimated Energy Needs Total Energy Estimated Needs: 1014kcal Method for Estimating Needs: 30kcal/kg Total Protein Estimated Needs: 57-76g Method for Estimating Needs: 1.5-2g/kg Celia Jeronimo RD, LD, CNSC [id number] Procedure note* Danitza Valentin CNP - 07/16/2022 6:25 AM ESTProcedure(s): CENTRAL VENOUS CATHETER INSERTION Central Venous Catheter Insertion Procedure Note Patient Name: Claudine Joseph Admit Date: [id number] MR #: [id number] : 1990 Sedation Plan: Minimal Pre-Sedation Assessment ASA Classification: 2 - Patient with mild systemic disease [place] Protocol: 1. Pre-procedure verification: - Correct patient, correct site, correct procedure (correct patient verified against two identifiers: name and date of ) - H&P or H&P update complete and in medical record - Consent form completed and signed: Yes - Informed consent risks: bleeding, pain, pneumothorax, hemothorax, infection - Review of: Radiology images, scans, labs, pathology, biopsy reports with appropriate identifiers (if applicable) - Any required blood products, implants, devices, and/or special equipment for the procedure (if applicable) 2. Site Markings - when appropriate: Alternative approach to site marking utilized (refer to hospital policy) - ultrasound guidance 3. Time Out: Timeout occurred at the following time: 0507 (Includes validating the following: Correct patient, correct side/site marked and procedure to performed, correct position) Other: Hand Hygiene completed Procedure completed using maximum barrier precautions Chest x-ray ordered Indications: No IV access Procedure Details: The patient was appropriately positioned, prepped with chlorhexidine, which was allowed to dry and draped in the standard sterile fashion. The skin was anesthetized using 1% lidocaine. Following this, the right internal jugular vein was accessed and cannulated using an introducer needle. Adequate drawback of dark venous blood was noted and the syringe was subsequently removed. A flexible guidewire was then passed through the needle and into the vein. The needle was removed and a small incision was made at the skin surface with a scalpel. A dilator was used and a previously flushed triple lumen central venous catheter was placed over the guidewire and into the vein using Seldinger technique.The wire was removed and all three lumens were checked for adequate drawback of venous blood and flushed until clear. The CVC was then secured to the skin and a sterile dressing was placed. The patient tolerated this procedure well and without incident. Ultrasound guidance was used during this procedure Estimated Blood Loss: Minimal Complications: None Post Procedure Plan includes dressing changes [facility] Work Phone: [phone] Procedure note* Danitza Valentin CNP - 07/16/2022 6:25 AM ESTProcedure(s): CENTRAL VENOUS CATHETER INSERTION Central Venous Catheter Insertion Procedure Note Patient Name: Claudine Joseph Admit Date: [id number] MR #: [id number] : 1990 Sedation Plan: Minimal Pre-Sedation Assessment ASA Classification: 2 - Patient with mild systemic disease [place] Protocol: 1. Pre-procedure verification: - Correct patient, correct site, correct procedure (correct patient verified against two identifiers: name and date of ) - H&P or H&P update complete and in medical record - Consent form completed and signed: Yes - Informed consent risks: bleeding, pain, pneumothorax, hemothorax, infection - Review of: Radiology images, scans, labs, pathology, biopsy reports with appropriate identifiers (if applicable) - Any required blood products, implants, devices, and/or special equipment for the procedure (if applicable) 2. Site Markings - when appropriate: Alternative approach to site marking utilized (refer to hospital policy) - ultrasound guidance 3. Time Out: Timeout occurred at the following time: 0507 (Includes validating the following: Correct patient, correct side/site marked and procedure to performed, correct position) Other: Hand Hygiene completed Procedure completed using maximum barrier precautions Chest x-ray ordered Indications: No IV access Procedure Details: The patient was appropriately positioned, prepped with chlorhexidine, which was allowed to dry and draped in the standard sterile fashion. The skin was anesthetized using 1% lidocaine. Following this, the right internal jugular vein was accessed and cannulated using an introducer needle. Adequate drawback of dark venous blood was noted and the syringe was subsequently removed. A flexible guidewire was then passed through the needle and into the vein. The needle was removed and a small incision was made at the skin surface with a scalpel. A dilator was used and a previously flushed triple lumen central venous catheter was placed over the guidewire and into the vein using Seldinger technique.The wire was removed and all three lumens were checked for adequate drawback of venous blood and flushed until clear. The CVC was then secured to the skin and a sterile dressing was placed. The patient tolerated this procedure well and without incident. Ultrasound guidance was used during this procedure Estimated Blood Loss: Minimal Complications: None Post Procedure Plan includes dressing changes documented in this [id number] Note* Quick Note - Danitza Valentin CNP - 07/16/2022 2:21 AM EST Patient takes cannabidioL (Epidiolex) at home for epilepsy. This medication is not on formulary. The patient mother brought this medication in earlier tonight. Pharmacy has instructed nurse to walk the medication to pharmacy, which was completed. [id number] Note* Significant Event - Danitza Valentin CNP - 07/16/2022 2:16 AM EST I was asked by the bedside nurse to evaluate the patient immediate for concerns for a very red face and upper chest, which was noticed 10 minutes after the infusion of vancomycin was started. I went to the patients bedside. She is tachycardic with a HR between 110-120; SBP was in the 90s. Her face and upper chest had an erythematous rash. Nurse confirms that this developed 10 minutes after vancomycin was started. This was the first dose of vancomycin this patient has received during THIS hospital stay. Vancomycin was stopped promptly. I attempted to call the patients mother to inquire about prior history or reaction but there was noanswer, VM message left. I called pharmacy to discuss the above. The recommendations were to continue the vancomycin but to infuse over 2-hours, rather 1-hour, and to administer PRN benadryl prior to. I called Dr. Magdaleno to discuss the above. She was in agreement to change vancomycin to infuse over 2-hours, rather 1-hour, and to administer PRN benadryl prior to. Pharmacy updated and medication orders updated. Addendum at 0231: Will add pepcid per pharmacy recommendation. [id number] Note* Quick Note - Latricia Curry RN - 07/16/2022 1:49 AM EST Patient arrives on unit with wheelchair, oxygen tank, clothes, home slade pad, blankets and two bags full of yarn. Verified with second associate, Chantal Rahman RN Skin assessment completed upon admission to unit. Verified by note author and Chantal Rahman RN. Abnormalities noted: -LLQ new baclofen pump insertion site -RLQ old baclofen site with STACIE drain -PEG tube in LLQ -Left lower back drsg -R buttock wound POA -Sacral wound POA -Surgical scar on back -Scattered bruising See LDA documentation for wound assessment. Enterostomal Therapy consult entered. Preventative Mepilex applied to sacrum and heels. [id number] Note Suboptimal evaluation of the abdomen with too many overlapping structures. Workstation ID: [id number] Consult note* Danitza Valentin, ROCKY - 07/15/2022 9:00 PM ESTAssociated Order(s): IP CONSULT TO NEURO CRITICAL CARE Neurocritical Care Consultation Claudine Joseph is a 32 y.o. 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 The patient has scoliosiswhich causes her to lay on her right side, where the baclofen pump was located. She arrives to [facility] on POD 0 s/p removal of right intrathecal pump, with replacement on the left side, and cultures of the pocket & CSF were collected. The new left-sided pump should be functioning but keeping in NCCovernight to monitor for WD. Admitted with these risk variables:Brain Injury without Return of Consciousness and Anoxic Brain Damage. Please see assessment and plan for further details. Assessment and Plan NEUROLOGIC Intrathecal Baclofen Pump Erosion/Infection Risk/Concern of Baclofen Withdrawal - History of spastic CP and quadriplegia s/p baclofen pump placement many years ago (Last revised at [facility] with Dr Ramsey in 2016). - Baseline: Non-verbal, blinks for yes. Spastic with baclofen pump as above. Contractured. Neurogenic bladder with chronic Sage. Dysphagia with chronic PEG for all meds and TFs. - Presents to [facility] ED on 07/14/22 with c/o baclofen pump being eroded through the abdominal pocket. The patient has scoliosis which causes her to lay on her right side, where the baclofen pump was located. - Per NSGY consult note: The original pump was interrogated and was still working. Reportedly, there was a small amount of fluid coming from the pocket. She may also need additional surgery with plastics if the pocket does not close appropriately. - To [facility] on POD 0 s/p removal of right intrathecal pump, with replacement on the left side, and cultures of the pocket & CSF were collected. The new left-sided pump should be functioning but keeping in NCC overnight to monitor for WD. - Neurology signed off - Plans to follow-up in the spasticity clinic with Dr. Estuardo Moncada Epilepsy - Per history - Continue home lamictal, keppra and Epidiolex - Patients mother reports that it is very common for the patient to have a seizure upon awakening in the morning. Seizures are described to be as arms tensing upwards and roving eye movements. Motheris able to administer intranasal valium, which is reportedly very effective - will substitute for PRN IV valium. Cerebral Palsy - Per history, secondary to anoxic brain injury at - Baseline: Non-verbal, blinks for yes. Spastic with baclofen pump as above. Contractured. Neurogenic bladder with chronic Sage. Dysphagia with chronic PEG for all meds and TFs. CARDIOVASCULAR Mild Hypotension - Patient with SBP between 88-101 but MAP has been persistently > 70. - MAP goal > 65 Rhythm stable. 06/2017 TTE: EF 70%, overall normal study. 07/15/2022 EKG: NSR. PULMONARY BiPAP was ordered for Chronic Hypoxia Respiratory Failure; however, the patient does not have the BUE mobility or strength to remove mask herself in an emergency. Thus, will continue with supplemental oxygen via nasal cannula. Protecting airway at this time. RENAL Na 138, K 4.2, Cr 0.29 / BUN 14. ERP in place. Monitor UOP. Patient has a chronic indwelling sage catheter. HEMATOLOGIC Hgb 14.3 / HCT 47.2, Plt 278, INR 1. ID Leukocytosis - Secondary to thecal pump erosion through skin - Afebrile Tm < 99.5, WBC 12.17. - 07/15 multiple intra-op cultures sent and pending - Continue empiric vancomycin per NSGY (please see significant event note) - May need to consider ID consult for long-term antibiotic management ENDOCRINE Monitor for SSI needs. BG goal 80-180, most recently between 73-117. GI / NUTRITION Dysphagia - Per history - Patients mother confirms that the patient is strictly NPO per oral route, has a PEG tube for tubefeeds. Per previous RD notes, patient was receiving Promote @ 55 ml/hr. Bowel regimen: continue miralax. Last BM KETTLE GIRL. PROPHYLAXIS - Continue home PPI. - SCDs, consider chemoprophylaxis 07/16. PT/OT: Ok for therapy. SW: Consulted. SHARON: TBD. CODE STATUS / FAMILY - Full Code, discussed with patients adoptive mother, Peg Joseph. Plan discussed with [facility] attending Dr. Magdaleno. [facility] to be the accepting service upon transfer from [facility]. Danitza Valentin, ROCKY Neurocritical Care Reason for Consultation: Medical management in critical care, s/p removal of right intrathecal baclofen pump. History of Presenting Illness: Claudine Joseph is a 32 y.o. 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 The patient has scoliosiswhich causes her to lay on her right side, where the baclofen pump was located. She arrives to [facility] on POD 0 s/p removal of right intrathecal pump, with replacement on the left side, and cultures of the pocket & CSF were collected. The new left-sided pump should be functioning but keeping in NCCovernight to monitor for WD. Review of Systems: [] CV, Resp, GI, Neuro, and all other systems reviewed and negative other than listed above. [x] Unable to obtain review of systems due to intubation, critically ill condition, and/or neurologic status. Past Medical, Surgical and Social History: Medical History: Past Medical History: Diagnosis Date Acute respiratory failure (HCC) Due to MRSA pneumonia 04/2016; Allergic rhinitis Anoxic brain damage (HCC) Aspiration, chronic pulmonary Bowel and bladder incontinence Cerebral palsy (HCC) Chronic kidney disease Chronic osteomyelitis of pelvic region, right (HCC) 2018 required right ischial debridement, followed by Dr. Noland of plastics Chronic respiratory failure with hypoxia ([facility]) 3 L NC, followed by Dr. Stephy Cisse and Dr. Amalia Terry Constipation COVID-19 06/2020 Epilepsy ([facility]) followed at [facility] neurology clinic GERD (gastroesophageal reflux disease) occasional vomiting with gagging MRSA (methicillin resistant Staphylococcus aureus) 04/2016 Bilateral lungs Muscle spasticity medically refractory and has baclofen pump since 1999, followed at [facility] neuro baclofen pump clinic Nonverbal Answers yes with very long blinks per adoptive parent PEG (percutaneous endoscopic gastrostomy) status ([facility]) Presence of intrathecal baclofen pump [address] 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 Urine retention occasional occurrence that requires straight cath periodically Wheelchair bound Surgical History: Past Surgical History: Procedure Laterality Date BACK SURGERY 1999 Marrufo rods placed BACLOFEN PUMP IMPLANTATION X 3- last 2009 CHOLECYSTECTOMY INCISION AND DRAINAGE LOWER EXTREMITY Right 12/02/2018 Procedure: INCISION AND DRAINAGE WITH BONE BIOPSY OF RIGHT ISCHIUM; Surgeon: Rad Luque MD; Location: [facility] Main OR; Service: Orthopedic INSERTION PERCUTANEOUS ENDOSCOPIC GASTROSTOMY TUBE LAMINECTOMY DECOMP THORACIC MULTI LEVEL N/A 07/27/2016 Procedure: T1-2 THORACIC FUSION REVISION ; Surgeon: Kb Ramsey MD; Location: [facility] Main OR; Service: REVISION PAIN PUMP N/A 07/27/2016 Procedure: BACLOFEN PUMP REPLACEMENT ; Surgeon: Kb Ramsey MD; Location: [facility] Main OR; Service: SALIVARY GLAND SURGERY Family History: Family History Adopted: Yes Family history unknown: Yes [] Unable to verify due to intubation and/or neurologic status. Social History: Social History Socioeconomic History Marital status: Single Tobacco Use Smoking status: Never Smokeless tobacco: Never Vaping Use Vaping Use: Never used Substance and Sexual Activity Alcohol use: No Drug use: No [] Unable to verify due to intubation and/or neurologic status. Allergies and Medications: Allergies: Allergies Allergen Reactions Levaquin [Levofloxacin] Rash, flushing with RUE arm swelling. Augmentin [Amoxicillin-Pot Clavulanate] Rash Per mother- tolerates Zosyn, unable to tolerate amoxil (blisters upper extremity) Lactose Intolerance [Lactase] Penicillins Other (See Comments) Blisters- amoxil Ragweed Unknown Hospital medications reviewed. Home medications: Prior to Admission medications Medication Sig Start Date End Date Taking? Authorizing Provider acetaminophen (TYLENOL) 325 MG tablet 650 mg by G-tube route every 6 (six) hours as needed for pain. Yes Historical Provider, acetic acid 0.25 % irrigation 120 mL daily Flush for bladder . 10/31/21 Yes Historical Provider, cannabidioL (Epidiolex) 100 mg/mL Soln 3.5 mL (350 mg total) by G-tube route 2 (two) times a day . 02/16/22 Yes Yany Wright CNP cholecalciferol, vitamin D3, 50 mcg (2,000 unit) cap 2,000 Units by G-tube route every morning. YesHistorical Provider, diazePAM (VALIUM) 2 MG tablet 3 (three) tablets (6 mg total) by Per G Tube route daily as needed For seizures . 11/27/21 Yes Yany Wright CNP diazePAM (Valtoco) 15 mg/2 spray (7.5/0.1mL x 2) Novi Instill 1 spray into each nostril as needed (Seizures, may repeat times 1 in 4 hours) . 11/27/21 Yes Yany Wright CNP fluconazole (DIFLUCAN) 150 MG tablet by Per G Tube route When taking antibiotics . 02/06/21 Yes Historical Provider, fluticasone propionate (FLONASE) 50 mcg/actuation nasal spray Instill 1 (one) spray into each nostril daily as needed for rhinitis . 01/11/20 Yes Stephy Cisse MD guaiFENesin (ROBITUSSIN) 100 mg/5 mL syrup 200 mg by G-tube route 3 (three) times a day as needed for cough . Yes Historical Provider, ipratropium (ATROVENT) 0.02 % nebulizer solution inhale contents of 1 vial in nebulizer twice a dayIF CONGESTED OR WHEEZING OR LABORED CAN TAKE UP TO FOUR TIMES DAILY . 01/15/21 Yes Stephy Cisse MD lamoTRIgine (LAMICTAL) 100 MG tablet take 1 tablet PER G TUBE twice a day 10/17/21 Yes Yany Wright CNP lamoTRIgine (LAMICTAL) 150 MG tablet take 1 tablet PER G TUBE twice a day 10/17/21 Yes Yany Wright CNP levETIRAcetam (KEPPRA) 100 mg/mL solution 1,000 mg by Per G Tube route 2 (two) times a day . Yes Historical Provider, loratadine (CLARITIN) 10 mg tablet 10 mg by G-tube route every morning . Yes Historical Provider, medroxyPROGESTERone (DEPO-PROVERA) 150 mg/mL Syrg INJECT 1ML INTRAMUSCULARLY EVERY 10 TO 13 WEEKS 05/14/20 Yes Historical Provider, montelukast (SINGULAIR) 10 mg tablet 10 mg by Per G Tube route daily . 12/16/19 Yes Historical Provider, multivitamin/iron/folic acid (CENTRUM ORAL) 10 mL by G-tube route every morning . Yes Historical Provider, omeprazole (PRILOSEC) 40 MG capsule 40 mg by G-tube route every morning . Yes Historical Provider, ondansetron (ZOFRAN) 4 mg/5 mL solution 5 mL (4 mg total) by Per G Tube route every 8 (eight) hoursas needed for nausea . 10/17/21 07/14/22 Yes Magalie Rome MD polyethylene glycol (MIRALAX) 17 gram powder 17 g by Per G Tube route every morning . Yes Historical Provider, promethazine (PHENERGAN) 12.5 MG suppository Insert 12.5 mg into the rectum every 6 (six) hours as needed for nausea. Yes Historical Provider, baclofen 40,000 mcg/20mL (2,000 mcg/mL) Soln Simple continuous infusion ITB at daily dose of 649.8 mcg/day. . 08/26/21 07/15/22 Yes Radha Marquez CNP baclofen 40,000 mcg/20mL (2,000 mcg/mL) Soln Simple continuous infusion ITB at daily dose of 649.8 mcg/day. . 07/15/22 Donna Levy CNP Exam Vital Signs: Temp: [97.7 F (36.5 C)-98.6 F (37 C)] 97.7 F (36.5 C) Heart Rate: [80-121] 88 Resp: [12-24] 17 BP: (84-141)/(50-96) 90/58 I/O last 3 completed shifts: In: 1300.8 [I.V.:1200; IV Piggyback:100.8] Out: 100 [Blood:100] Exam taken upon arrival to [facility]. General: Eyes open. Does not appear to be acutely ill or in any distress. Chronically ill appearing. Head/Neck: Head - Normocephalic. Eyes - Sclerae anicteric. Ears - External ears normal. Nose - Normal with NC in place. Mouth - Mucous membranes dry. Neck - trachea is midline. Cardiovascular: Regular rate and rhythm. No clicks, rubs, murmurs, or gallops noted. Peripheral extremity pulses are palpable. Respiratory: Respiratory effort unlabored without accessory muscle use. Lung sounds are diminished to ascultation bilaterally without wheezes, rales, or rhonchi. Abdominal: Soft, nondistended, nontender, decreased bowel sounds. PEG tube noted to LUQ. LLQ with surgical dressing from recently implanted baclofen pump. RLQ with surgical drain in place. Right hip/backside with surgical dressing in place. Musculoskeletal: No obvious long bone deformity. Extremities: Well perfused. No clubbing, cyanosis, or edema noted. Neurological: Eyes are open. Appears to be regarding examiner. Does not follow commands but that isbaseline. Contractured to all 4 extremities. Mother states that patient is able to blink for yes. Skin: Normal turgor, well-hydrated, no diffuse rash appreciated. Clinical Data: [x] Lab, Micro data reviewed. [x] Most recent imaging reviewed. No results for input(s): PHART, WYH8UYL, PO2ART, X7ZIUPYP, RESPRATE, TIDALVOL, PEEP, [id number] in the last 72 hours. Recent Labs 07/15/22 0331 WBC 12.17* HGB 14.3 PLT 278 Recent Labs 07/15/22 0331 NA 138 K 4.2 CL 105 BICARB 21 BUN 14 CREATININE 0.29* GLUCOSE 100* CALCIUM 9.7 Lab Results Component Value Date LACTICACID 2.9 (H) 11/28/2018 LACTICACID 2.9 (H) 11/28/2018 LACTICACID 1.3 11/21/2016 Recent Labs 07/15/22 0948 INR 1.0 PTT 27 Labs Last Refreshed: CBC - 07/15/2022, BMP - 07/15/2022, CMP - - -, Coag - 07/15/2022 Associated attestation - Nannette Magdaleno MD - 07/16/2022 6:14 PM EST Discussed wit hme on admission. See my attestation to today's progress note. Nannette Magdaleno MD, [facility], [facility] Neurocritical Care 07/16/22 1:18 PM [id number] Note* Brief Op Note - Kemal Barber DO - 07/15/2022 7:35 PM EST Brief Post Operative Note Patient Name: Claudine Joseph : 1990 (32 y.o.) Date of Service: 07/15/2022 CSN: [id number] Procedure(s): REMOVAL OF RIGHT INTRATHECAL PUMP, CATHETER WITH REPLACEMENT ON LEFT SIDE Pre-Operative Diagnoses: * INFECTION OF INTRATHECAL PUMP Post-Operative Diagnoses: * INFECTION OF INTRATHECAL PUMP Surgeon(s) and Role: * Peter Portillo MD - Primary * Kemal Barber DO - Resident - Assisting Anesthesiologist: Mignon Bazan MD; Ernesto Rivera MD [employer] Specialist: Priyanka Buenrostro RN; Karen Hanson RN Scrub Person: ST Josefina Operative findings: Pump with skin dehiscence Approximately 25 cm intrathecal portion distal metal attachment this was calculated and not from prior documentationt, 53 cm attachment to baclofen pump Intra and immediate post-operative complications: none Type of anesthesia used: General Estimated blood loss: 100 mL Estimated urine output: 450 mL Specimen(s): ID Type Source Tests Collected by Time Destination 1 : 1. CEREBRAL SPINAL FLUID CSF CSF CSF AFB CULTURE, CSF ANAEROBIC CULTURE, CSF FUNGUS CULTURE Peter Portillo MD 07/15/2022 1626 2 : abdominal wall pocket Swab Abdominal Wall WOUND AEROBIC CULTURE, WOUND AFB CULTURE, WOUND ANAEROBIC CULTURE, WOUND FUNGUS CULTURE Peter Portillo MD 07/15/2022 1640 3 : abdominal wall pocket Tissue Abdominal Wall TISSUE AEROBIC CULTURE, TISSUE AFB CULTURE, TISSUE ANAEROBIC CULTURE, TISSUE FUNGUS CULTURE Peter Law MD 07/15/2022 1641 Implant(s): Implant Name Type Inv. Item Serial No. Melon Packer Lot No. [id number] No. Used Action PUMP 40ML PAIN SYNCHROMED II - [id number] Catheter - Implant PUMP 40ML PAIN SYNCHROMED II [id number] [employer]LA[employer] N/A 1 Explanted Intrathecal Catheter Pump Segment Revision Kit [employer]leyWatch [id number] Implanted PUMP 40ML PAIN SYNCHROMED II - [id number] Catheter - Implant PUMP 40ML PAIN SYNCHROMED II [id number] [employer] ELAINE 1 Implanted Drain(s): Closed/Suction Drain Inferior;Lateral;Right Back 10 Fr. (Active) Site Assessment Clean;Dry;Intact 07/15/221902 Dressing Type Other (comment) 07/15/221902 Drainage Appearance Serosanguineous 07/15/221902 Gastrostomy/Enterostomy PEG-jejunostomy (Active) Gastrostomy/Enterostomy PEG-jejunostomy RUQ (Active) Gastrostomy/Enterostomy 18 Fr. RUQ (Active) Gastrostomy/Enterostomy LUQ (Active) Urethral Catheter 20 Fr. (Active) Site Assessment Intact 07/15/221928 Reason for Continued Urinary Catheter Chronic history of indwelling or supra- pubic catheter 07/15/221928 Wound(s): Wound 07/15/22 Removal of right intrathecal pump and catheter Flank Right (Active) Dressing Status Intact 07/15/221902 Dressing Changed New 07/15/221902 Drainage Amount Small 07/15/221902 Drainage Description Fresh blood 07/15/221902 Primary Dressing Non adherent 07/15/221902 Secondary Dressing Transparent film 07/15/221902 Wound 07/15/22 placement of intrathecal baclofen pump Abdomen LLQ (Active) Dressing Status Intact 07/15/221902 Dressing Changed New 07/15/221902 Drainage Amount None 07/15/221902 Primary Dressing Non adherent 07/15/221902 Secondary Dressing Transparent film 07/15/221902 Wound 07/15/22 LEFT INTRATHECAL BACLOFEN PUMP PLACEMENT Flank Left (Active) Dressing Status Intact 07/15/221902 Dressing Changed New 07/15/221902 Drainage Amount None 07/15/221902 Primary Dressing Non adherent 07/15/221902 Secondary Dressing Transparent film 07/15/221902 Kemal Barber DO 07/15/2022 7:35 PM [id number] Note* Op Note - Peter Portillo MD - 07/15/2022 4:17 PM EST [facility] PATIENT NAME: Claudine Joseph DATE OF : 1990 CSN: [id number] PHYSICIAN: Peter Portillo MD ADMIT DATE: 07/14/2022 DICTATED BY: Peter Portillo MD SURGERY DATE: 07/15/2022 OPERATIVE REPORT SURGEON: Peter Portillo MD PREOPERATIVE DIAGNOSIS: 1. Infection of intrathecal pump 2. Spastic cerebral palsy POSTOPERATIVE DIAGNOSIS: Same PROCEDURES: REMOVAL OF RIGHT INTRATHECAL PUMP AND ABDOMINAL CATHETER SEGMENT 2. PLACEMENT OF LEFT ABDOMINAL INTRATHECAL PUMP AND ABDOMINAL CATHETER SEGMENT 3. REVISION OF ABDOMINAL INCISION WITH DEBRIDEMENT- 5 CM 4. ELECTRONIC ANALYSIS AND PROGRAMMING OF INTRATHECAL PUMP 5. MODIFIER 22- CASE OF INCREASED COMPLEXITY DUE TO SIGNIFICANT CONTRACTURES REQUIRING COMPLEX POSITIONING WELL TWO STAGE SURGERY TO ADDRESS THE REPLACEMENT REQUIRING 1 HOUR OF ADDITIONAL WORK ANESTHESIA: General. RESIDENT: Kemal Barber ESTIMATED BLOOD LOSS: 100 cc IMPLANTS: 1. Medtronic SynchroMed II 40 cc pump model 8637-40 2. Catheter pump segment revision kit PROGRAMMING: Baclofen 2000 mcg/ml @ 649 mcg/day Calculated approximately 25 cm of remaining intrathecal catheter. The new pump segment is 53 cm. Connecting point is in the lumbar region. DISPOSITION: Postanesthesia care unit. INDICATIONS: 32 yo female with spastic cerebral palsy, presented to [facility] after the pump extruded from the right abdomen due to skin dehiscence. The patient continues to receive therapy and her spasticity has remained stable. She is on a high dose of baclofen. The catheter was found to be in good position. Given that the infected area is restricted to the right abdomen and there are no signs of infection in the lumbar region, we discussed removing the device on the right and replacing on the left so the patient does not have loss of therapy. We will obtain cultures during the process. The mother consented for surgery. DESCRIPTION OF PROCEDURE: The patient was brought into the room and intubated supine on the operating table. The patient was placed in the left lateral decubitus position making sure her arms, legs, face and axilla were padded appropriately. A rider bag was used to keep the patient in that position with exposure of the lumbar area and left abdomen. We marked the previous lumbar incision. The abdominal incision was marked around the dehisced area to be able to revise the skin. The whole area, including the left flank,was prepped with chlorhexidine soap, dried with a towel and prepped with iodine solution. A time out wasperformed. The patient was draped in the usual sterile fashion. We used two separate sets for the removal and placement of the pump to maintain sterility. We also accessed the lumbar area and closed that area prior to removal of the infected pump. EXPOSURE OF LUMBAR CATHETER Using a 15 blade the lumbar incision was opened and taken to the level of the catheter using bovie cautery. The catheter was exposed including the connecting point to the abdominal catheter segment. The abdominal segment was cut just distal to the connecting point. We proceeded then to obtain CSF for cultures. The intrathecal catheter was working well. At this point we cut proximal to the connecting point and tied the intrathecal catheter in place. The catheter was then sutured to the fascia using a silk suture for the second part of the procedure. We then partially closed the lumbar incisionusing 0 Vicryl for the deeper layer followed by 0 Vicryl at the level of the skin. Ioban was then pl aced over the incision to protect it. REMOVAL OF INFECTED DEVICE ON THE RIGHT We then turned our attention to removal of the infected intrathecal pump. Using a 15 blade we cut acurvilinear incision around the dehisced segment of the skin. Bovie cautery was then used for hemostasis. This allowed for the exposure of clean skin circumferentially. We then proceeded to remove the pump from the pocket and cut the sutures holding it in place. Cultures were obtained from the depth of the pocket and some tissue was also sent for cultures. We then proceeded to remove the abdominal segment of the catheter by detaching it from the scar tissue using Bovie cautery. We followed the catheter as it exits towards the right flank. We gently pulled on the catheter but ended up breaking it in that process. We could tell that a segment of the catheter was left in place on the right flank. The pocket was then irrigated copiously with saline solution. We also debrided the edges of the pocket and any tissue that seem infected. The pocket was then closed by opposing the layers using 0 Vicryl inside the pocket itself. The skinincision was then repaired by using a combination of 0 Vicryl and 2-0 Vicryl bringing the layers together by rotating the abdominal skin towards the right flank skin and distributing the tension. 3-0Vicryl was also used in the immediate subdermal tissues to allow for proper closure. The skin incision was finally closed using nylon in a running fashion. The drapes were then removed and the area was dressed using Polysporin, Telfa and Tegaderm. We proceeded then to turn the patient to the right lateral decubitus position exposing in this fashion the left abdominal area for the placement of the new device. Positioning was quite difficult as the patient has a PEG tube and is very contracted. Furthermore, she has severe scoliosis which makesthe left side the contracted side for the placement of the device. The incision was fashioned on the abdomen inferior to the PEG tube going towards the pelvis. We removed the Ioban from the lumbar incision and the whole area was prepped 3 separate times with ChloraPrep solution including the left flank and the abdomen. The patient was then draped again in the usual sterile fashion. I proceeded to open the lumbar incision using scissors and exposed the previously cut intrathecal catheter. A pocket was then fashioned towards the left side to accept the abdominal catheter segment. PLACEMENT OF THE PUMP Using a 15 blade the abdominal incision was opened and taken to the level of the fat. Bovie cauterywas used to expand the incision down to the abdominal fascia. The abdominal fascia was elevated over the muscle as the patient is quite thin and this will provide an additional layer of protection. Using blunt and sharp dissection a pocket was created inferior to the incision as well as slightly sup erior to be able to suture the fat over the pump. Any traversing vessels were cauterized and cut. The tunneler was placed form the abdominal to the lumbar incision and the catheter was transferred.The excess catheter was cut and the abdominal segment catheter was connected in the lumbar region. The connecting point was sutured to the fascia with 2-0 silk sutures. CSF was seen from the tip of the catheter. Four 2-0-silk sutures were placed through the muscle to hold the pump in place. The new pump was filled with medication and connected to the catheter system. We accessed the sampling port and withdrew CSF to confirm an appropriate connection. The excess catheter was then coiled behind the pump and the device was sutured to the pocket with the sutures. The sampling port was accessed one last time to confirm the sutures did not crimp the tubing. The incisions were irrigated copiously with saline solution, dried with a lap sponge and closed using 0-vicryl for the deeper layers and the fat layer followed by 3-0 vicryl for the subdermal tissuesand 3-0 monocryl in a subcuticular fashion. Tissue glue, Telfa and Tegaderm were used as dressings. The patient was extubated in the operating room in good condition. All counts were correct at the end of the case. I was present and scrubbed throughout the case with my resident. The pump was programmed with the settings above and the catheter was bolused with medication. We had to obtain x-rays in the postanesthesia care unit to determine the amount of catheter that was lefton the right flank. After calculating the remaining catheter we were able to subtract from the entirety of the calculated original catheter. This allowed us to determine the approximate amount of intrathecal catheter left in place. PETER PORTILLO MD [id number] Note* Sign Off Note - Bashir Chappell MD - 07/15/2022 3:05 PM EST Neurology Sign-Off Diagnosis: Baclofen pump exposure Tests Pending: None Discharge Medications & Treatments: None Additional Recommendations: None Follow-up Testing (After Discharge): None Follow-up Appointment: Follow-up in spasticity clinic with Dr. Estuardo Moncada after discharge Recall: If questions. [place] [id number] Attending History and physical note* Peter Law MD - 07/15/2022 2:13 PM EST INTERVAL HISTORY AND PHYSICAL Patient Name: Claudine Joseph Admit Date: [id number] MR #: [id number] : 1990 The H&P has been reviewed and the patient has been examined. I concur with the findings of the H&P. There are no significant changes. It is appropriate to proceed with the planned procedure. Peter Portillo MD 07/15/2022 2:13 PM Source Note - Adrienne Baig CNP - 07/15/2022 1:34 AM EST Images from the original note were not included. Neurosurgery Inpatient Consult [facility] 07/15/2022 Adrienne Baig CNP [facility] Patient: Claudine Joseph Date of : 1990 (32 y.o.) Referring Provider: Refer to consult order in electronic medical record PCP: Marielle Duque MD ASSESSMENT/PLAN: Baclofen pump failure -Exposed baclofen pump right lower lateral abdomen area -Last revised at [facility] with Dr. Ramsey on 07/27/2016 -No obvious signs of infection. Check sed rate, CRP, WBC count -Keep NPO -Hold AC/AP medications -Medicine team for preoperative clearance -Will discuss with Dr. Sharma Admitted with these risk variables:None. Please see assessment and plan for further details. SUBJECTIVE: Chief Complaint/Reason for Consult: Exposed baclofen pump/need for surgical removal Informant(s): Care Team/Chart History of Present Illness: Claudine Joseph is a 32 y.o. female with history of spastic cerebral palsy with quadriplegia-wheelchair bound, baclofen pump revision at [facility] with Dr Ramsey on 07/27/2016, back surgery in 1999 with prior Marrufo Rods, chronic hypoxic respiratory failure on 2-3L NC, seizures, chronic decubitus ulcers, urinary retention with chronic sage and dysphagia s/p PEG tube who presents with anexposed baclofen pump. Her adopted mother states she noticed the exposed pump 1-2 days ago, prior to that there was a dark area under the skin where the pump is located. She states she is unhappy with the placement of the pump because it was placed in a location where she lays. She does not want the patient to see Dr. Ramsey again in the future. She lives at home with her adopted mother. Her mother denies the patient having any fevers. She reports that the patient communicates intermittently via blinking. She does not take any anticoagulantsor antiplatelet medications. Review of Systems: Unable to perform ROS due to patient's decreased mental status. Past Medical History: has a past medical history of Acute respiratory failure ([facility]), Allergic rhinitis, Anoxic brain damage ([facility]), Aspiration, chronic pulmonary, Bowel and bladder incontinence, Cerebral palsy ([facility]), Chronic kidney disease, Chronic osteomyelitis of pelvic region, right ([facility]) (2018),Chronic respiratory failure with hypoxia ([facility]), Constipation, COVID-19 (06/2020), Epilepsy ([facility]), GERD (gastroesophageal reflux disease), MRSA (methicillin resistant Staphylococcus aureus) (04/2016),Muscle spasticity, Nonverbal, PEG (percutaneous endoscopic gastrostomy) status ([facility]), Presence of intrathecal baclofen pump (1999), Restrictive lung disease due to kyphoscoliosis, Urine retention, and Wheelchair bound. Past Surgical History: has a past surgical history that includes Peg Tube Insertion; Baclofen pump implantation; Salivary gland surgery; Back surgery (1999); Cholecystectomy; Pain Pump Revision (N/A,07/27/2016); Laminectomy Decomp Thoracic Multi Level (N/A, 07/27/2016); and Incision And Drainage Lower Extremity (Right, 12/02/2018). Social History: reports that she has never smoked. She has never used smokeless tobacco. She reports that she does not drink alcohol and does not use drugs. Family History: Unknown, patient adopted Allergies: is allergic to levaquin [levofloxacin], augmentin [amoxicillin-pot clavulanate], lactoseintolerance [lactase], penicillins, and ragweed. HOME Medications: Prior to Admission medications Medication Sig Start Date End Date Taking? Authorizing Provider acetaminophen (TYLENOL) 325 MG tablet 650 mg by G-tube route every 6 (six) hours as needed for pain. Yes Historical Provider, acetic acid 0.25 % irrigation 120 mL daily Flush for bladder . 10/31/21 Yes Historical Provider, baclofen 40,000 mcg/20mL (2,000 mcg/mL) Soln Simple continuous infusion ITB at daily dose of 649.8 mcg/day. . 08/26/21 Yes Radha Marquez CNP cannabidioL (Epidiolex) 100 mg/mL Soln 3.5 mL (350 mg total) by G-tube route 2 (two) times a day . 02/16/22 Yes Yany Wright CNP cholecalciferol, vitamin D3, 50 mcg (2,000 unit) cap 2,000 Units by G-tube route every morning. YesHistorical Provider, diazePAM (VALIUM) 2 MG tablet 3 (three) tablets (6 mg total) by Per G Tube route daily as needed For seizures . 11/27/21 Yes Yany Wright CNP diazePAM (Valtoco) 15 mg/2 spray (7.5/0.1mL x 2) Novi Instill 1 spray into each nostril as needed (Seizures, may repeat times 1 in 4 hours) . 11/27/21 Yes Yany Wright CNP fluconazole (DIFLUCAN) 150 MG tablet by Per G Tube route When taking antibiotics . 02/06/21 Yes Historical Provider, fluticasone propionate (FLONASE) 50 mcg/actuation nasal spray Instill 1 (one) spray into each nostril daily as needed for rhinitis . 01/11/20 Yes Stephy Cisse MD guaiFENesin (ROBITUSSIN) 100 mg/5 mL syrup 200 mg by G-tube route 3 (three) times a day as needed for cough . Yes Historical Provider, ipratropium (ATROVENT) 0.02 % nebulizer solution inhale contents of 1 vial in nebulizer twice a dayIF CONGESTED OR WHEEZING OR LABORED CAN TAKE UP TO FOUR TIMES DAILY . 01/15/21 Yes Stephy Cisse MD lamoTRIgine (LAMICTAL) 100 MG tablet take 1 tablet PER G TUBE twice a day 10/17/21 Yes Yany Wright CNP lamoTRIgine (LAMICTAL) 150 MG tablet take 1 tablet PER G TUBE twice a day 10/17/21 Yes Yany Wright CNP levETIRAcetam (KEPPRA) 100 mg/mL solution 1,000 mg by Per G Tube route 2 (two) times a day . Yes Historical Provider, loratadine (CLARITIN) 10 mg tablet 10 mg by G-tube route every morning . Yes Historical Provider, medroxyPROGESTERone (DEPO-PROVERA) 150 mg/mL Syrg INJECT 1ML INTRAMUSCULARLY EVERY 10 TO 13 WEEKS 05/14/20 Yes Historical Provider, montelukast (SINGULAIR) 10 mg tablet 10 mg by Per G Tube route daily . 12/16/19 Yes Historical Provider, multivitamin/iron/folic acid (CENTRUM ORAL) 10 mL by G-tube route every morning . Yes Historical Provider, omeprazole (PRILOSEC) 40 MG capsule 40 mg by G-tube route every morning . Yes Historical Provider, ondansetron (ZOFRAN) 4 mg/5 mL solution 5 mL (4 mg total) by Per G Tube route every 8 (eight) hoursas needed for nausea . 10/17/21 07/14/22 Yes Magalie Rome MD polyethylene glycol (MIRALAX) 17 gram powder 17 g by Per G Tube route every morning . Yes Historical Provider, promethazine (PHENERGAN) 12.5 MG suppository Insert 12.5 mg into the rectum every 6 (six) hours as needed for nausea. Yes Historical Provider, HOSPITAL Infusions: sodium chloride 0.9 % HOSPITAL Scheduled Medications: enoxaparin (LOVENOX) injection 30 mg Subcutaneous Daily lamoTRIgine 250 mg Tube BID levETIRAcetam 1,000 mg Tube BID loratadine 10 mg Tube QAM montelukast 10 mg Tube Daily pantoprazole 40 mg Intravenous Daily polyethylene glycol 17 g Tube QAM HOSPITAL PRN Medications: acetaminophen, guaiFENesin, ipratropium, ondansetron OR ondansetron OBJECTIVE: Physical Examination: BP 102/70 (BP Location: Right arm, Patient Position: Lying) Pulse (!) 105 Temp 98.6 F (37 C) (Axillary) Resp (!) 19 Wt 36.3 kg (80 lb) SpO2 100% BMI 19.29 kg/m CAMEJO: DNFC: Does Not Follow Commands FRANKLIN: Unable to Assess Physical Exam: BP 108/70 (BP Location: Right arm, Patient Position: Lying) Pulse (!) 106 Temp 98.6 F (37 C) (Axillary) Resp 17 Wt 36.3 kg (80 lb) SpO2 100% BMI 19.29 kg/m General: NAD, chronically ill Eyes: EOMI ENT: neck supple, head tilts to the left Gastrointestinal: Soft, non tender Musculoskeletal: Right UE contracted-spontaneous movement, Left UE contracted- spontaneous movement,Right Lower extremity-flexed at the knee-no movement noted. Left lower extremity extended moves foot to tactile stimulation. Does not follow commands Skin: warm, dry, right lateral abdomen with exposed baclofen pum Neuro: Alert. Moans aloud occasionally. Grimaces. Does not follow commands DATA REVIEWED: Labs: Lab Results Component Value Date NA 140 01/20/2022 [id number] 54.0 (H) 09/20/2019 INR 1.0 11/21/2016 HGB 10.5 (L) 01/20/2022 WBC 9.97 01/20/2022 PLT 294 01/20/2022 BUN 10 01/20/2022 CREATININE 0.23 (L) 01/20/2022 [id number] History and physical note* Peter Portillo MD - 07/15/2022 2:13 PM EST INTERVAL HISTORY AND PHYSICAL Patient Name: Claudine Joseph Admit Date: 11141001 MR #: [id number] : 1990 The H&P has been reviewed and the patient has been examined. I concur with the findings of the H&P. There are no significant changes. It is appropriate to proceed with the planned procedure. Peter Portillo MD 07/15/2022 2:13 PM Source Note - Adrienne Baig CNP - 07/15/2022 1:34 AM EST Images from the original note were not included. Neurosurgery Inpatient Consult [facility] 07/15/2022 Adrienne Baig CNP [facility] Patient: Claudine Joseph Date of : 1990 (32 y.o.) Referring Provider: Refer to consult order in electronic medical record PCP: Marielle Duque MD ASSESSMENT/PLAN: Baclofen pump failure -Exposed baclofen pump right lower lateral abdomen area -Last revised at [facility] with Dr. Ramsey on 07/27/2016 -No obvious signs of infection. Check sed rate, CRP, WBC count -Keep NPO -Hold AC/AP medications -Medicine team for preoperative clearance -Will discuss with Dr. Sharma Admitted with these risk variables:None. Please see assessment and plan for further details. SUBJECTIVE: Chief Complaint/Reason for Consult: Exposed baclofen pump/need for surgical removal Informant(s): Care Team/Chart History of Present Illness: Claudine Joseph is a 32 y.o. female with history of spastic cerebral palsy with quadriplegia-wheelchair bound, baclofen pump revision at [facility] with Dr Ramsey on 07/27/2016, back surgery in 1999 with prior Marrufo Rods, chronic hypoxic respiratory failure on 2-3L NC, seizures, chronic decubitus ulcers, urinary retention with chronic sage and dysphagia s/p PEG tube who presents with anexposed baclofen pump. Her adopted mother states she noticed the exposed pump 1-2 days ago, prior to that there was a dark area under the skin where the pump is located. She states she is unhappy with the placement of the pump because it was placed in a location where she lays. She does not want the patient to see Dr. Ramsey again in the future. She lives at home with her adopted mother. Her mother denies the patient having any fevers. She reports that the patient communicates intermittently via blinking. She does not take any anticoagulantsor antiplatelet medications. Review of Systems: Unable to perform ROS due to patient's decreased mental status. Past Medical History: has a past medical history of Acute respiratory failure ([facility]), Allergic rhinitis, Anoxic brain damage ([facility]), Aspiration, chronic pulmonary, Bowel and bladder incontinence, Cerebral palsy ([facility]), Chronic kidney disease, Chronic osteomyelitis of pelvic region, right ([facility]) (2018),Chronic respiratory failure with hypoxia ([facility]), Constipation, COVID-19 (06/2020), Epilepsy ([facility]), GERD (gastroesophageal reflux disease), MRSA (methicillin resistant Staphylococcus aureus) (04/2016),Muscle spasticity, Nonverbal, PEG (percutaneous endoscopic gastrostomy) status ([facility]), Presence of intrathecal baclofen pump (1999), Restrictive lung disease due to kyphoscoliosis, Urine retention, and Wheelchair bound. Past Surgical History: has a past surgical history that includes Peg Tube Insertion; Baclofen pump implantation; Salivary gland surgery; Back surgery (1999); Cholecystectomy; Pain Pump Revision (N/A,07/27/2016); Laminectomy Decomp Thoracic Multi Level (N/A, 07/27/2016); and Incision And Drainage Lower Extremity (Right, 12/02/2018). Social History: reports that she has never smoked. She has never used smokeless tobacco. She reports that she does not drink alcohol and does not use drugs. Family History: Unknown, patient adopted Allergies: is allergic to levaquin [levofloxacin], augmentin [amoxicillin-pot clavulanate], lactoseintolerance [lactase], penicillins, and ragweed. HOME Medications: Prior to Admission medications Medication Sig Start Date End Date Taking? Authorizing Provider acetaminophen (TYLENOL) 325 MG tablet 650 mg by G-tube route every 6 (six) hours as needed for pain. Yes Historical Provider, acetic acid 0.25 % irrigation 120 mL daily Flush for bladder . 10/31/21 Yes Historical Provider, baclofen 40,000 mcg/20mL (2,000 mcg/mL) Soln Simple continuous infusion ITB at daily dose of 649.8 mcg/day. . 08/26/21 Yes Radha Marquez CNP cannabidioL (Epidiolex) 100 mg/mL Soln 3.5 mL (350 mg total) by G-tube route 2 (two) times a day . 02/16/22 Yes Yany Wright CNP cholecalciferol, vitamin D3, 50 mcg (2,000 unit) cap 2,000 Units by G-tube route every morning. YesHistorical Provider, diazePAM (VALIUM) 2 MG tablet 3 (three) tablets (6 mg total) by Per G Tube route daily as needed For seizures . 11/27/21 Yes Yany Wright CNP diazePAM (Valtoco) 15 mg/2 spray (7.5/0.1mL x 2) Novi Instill 1 spray into each nostril as needed (Seizures, may repeat times 1 in 4 hours) . 11/27/21 Yes Yany Wright CNP fluconazole (DIFLUCAN) 150 MG tablet by Per G Tube route When taking antibiotics . 02/06/21 Yes Historical Provider, fluticasone propionate (FLONASE) 50 mcg/actuation nasal spray Instill 1 (one) spray into each nostril daily as needed for rhinitis . 01/11/20 Yes Stephy Cisse MD guaiFENesin (ROBITUSSIN) 100 mg/5 mL syrup 200 mg by G-tube route 3 (three) times a day as needed for cough . Yes Historical Provider, ipratropium (ATROVENT) 0.02 % nebulizer solution inhale contents of 1 vial in nebulizer twice a dayIF CONGESTED OR WHEEZING OR LABORED CAN TAKE UP TO FOUR TIMES DAILY . 01/15/21 Yes Stephy Cisse MD lamoTRIgine (LAMICTAL) 100 MG tablet take 1 tablet PER G TUBE twice a day 10/17/21 Yes Yany Wright CNP lamoTRIgine (LAMICTAL) 150 MG tablet take 1 tablet PER G TUBE twice a day 10/17/21 Yes Yany Wright CNP levETIRAcetam (KEPPRA) 100 mg/mL solution 1,000 mg by Per G Tube route 2 (two) times a day . Yes Historical Provider, loratadine (CLARITIN) 10 mg tablet 10 mg by G-tube route every morning . Yes Historical Provider, medroxyPROGESTERone (DEPO-PROVERA) 150 mg/mL Syrg INJECT 1ML INTRAMUSCULARLY EVERY 10 TO 13 WEEKS 05/14/20 Yes Historical Provider, montelukast (SINGULAIR) 10 mg tablet 10 mg by Per G Tube route daily . 12/16/19 Yes Historical Provider, multivitamin/iron/folic acid (CENTRUM ORAL) 10 mL by G-tube route every morning . Yes Historical Provider, omeprazole (PRILOSEC) 40 MG capsule 40 mg by G-tube route every morning . Yes Historical Provider, ondansetron (ZOFRAN) 4 mg/5 mL solution 5 mL (4 mg total) by Per G Tube route every 8 (eight) hoursas needed for nausea . 10/17/21 07/14/22 Yes Magalie Rome MD polyethylene glycol (MIRALAX) 17 gram powder 17 g by Per G Tube route every morning . Yes Historical Provider, promethazine (PHENERGAN) 12.5 MG suppository Insert 12.5 mg into the rectum every 6 (six) hours as needed for nausea. Yes Historical Provider, HOSPITAL Infusions: sodium chloride 0.9 % HOSPITAL Scheduled Medications: enoxaparin (LOVENOX) injection 30 mg Subcutaneous Daily lamoTRIgine 250 mg Tube BID levETIRAcetam 1,000 mg Tube BID loratadine 10 mg Tube QAM montelukast 10 mg Tube Daily pantoprazole 40 mg Intravenous Daily polyethylene glycol 17 g Tube QA HOSPITAL PRN Medications: acetaminophen, guaiFENesin, ipratropium, ondansetron OR ondansetron OBJECTIVE: Physical Examination: BP 102/70 (BP Location: Right arm, Patient Position: Lying) Pulse (!) 105 Temp 98.6 F (37 C) (Axillary) Resp (!) 19 Wt 36.3 kg (80 lb) SpO2 100% BMI 19.29 kg/m CAMEJO: DNFC: Does Not Follow Commands FRANKLIN: Unable to Assess Physical Exam: BP 108/70 (BP Location: Right arm, Patient Position: Lying) Pulse (!) 106 Temp 98.6 F (37 C) (Axillary) Resp 17 Wt 36.3 kg (80 lb) SpO2 100% BMI 19.29 kg/m General: NAD, chronically ill Eyes: EOMI ENT: neck supple, head tilts to the left Gastrointestinal: Soft, non tender Musculoskeletal: Right UE contracted-spontaneous movement, Left UE contracted- spontaneous movement,Right Lower extremity-flexed at the knee-no movement noted. Left lower extremity extended moves foot to tactile stimulation. Does not follow commands Skin: warm, dry, right lateral abdomen with exposed baclofen pum Neuro: Alert. Moans aloud occasionally. Grimaces. Does not follow commands DATA REVIEWED: Labs: Lab Results Component Value Date NA 140 01/20/2022 [id number] 54.0 (H) 09/20/2019 INR 1.0 11/21/2016 HGB 10.5 (L) 01/20/2022 WBC 9.97 01/20/2022 PLT 294 01/20/2022 BUN 10 01/20/2022 CREATININE 0.23 (L) 01/20/2022 * Magalie Ross Jr., MD - 07/14/2022 11:52 PM EST Images from the original note were not included. [facility] History and Physical Note 07/14/22 Claudine Joseph 1990 [id number] Assessment/Plan: Claudine Joseph is a 32 y.o. female with a history of anoxic brain injury, cerebral palsy, CKD, epilepsy, spasticity s/p baclofen pump who presented to [facility] 07/14/2022 with exposure of a portion of her baclofen pump. Baclofen pump failure: Exposed baclofen pump R buttock/hip area. No obvious signs of infection or drainage. Last revised at [place] with Dr Ramsey (neurosurgry). Neurosurgery consulted for evaluaton. Anoxic brain injury: Hx with intermittent communication with blinking. CKD: Hx normal renal function on labs. Cerebral palsy: Spastic. Neurogenic bladder with chornic sage. NPO, all meds and nutrition throug G tube. Epilepsy: Home meds continued. Code status: Full unv DVT Prophylaxis: subcut lovenox Admitted with these risk variables:None. Please see assessment and plan for further details. Current living situation: home Expected Disposition: home Estimated discharge date: TBD Chief Complaint: Exposed baclofen pump History of Present Illness: For the last two days has yamila little more agitated than normal. Noted the day of admission that her baclofen pump wound has opened up with exposed pump. NO obvious fevers or chills. Takes all meds sand nutrition through peg. Has chornic sage. ROS: Unable to perform a complete review of systems due to Past Medical, Surgical, Social, Family History: Past Medical History: Diagnosis Date Acute respiratory failure (HCC) Due to MRSA pneumonia 04/2016; Allergic rhinitis Anoxic brain damage (HCC) Aspiration, chronic pulmonary Bowel and bladder incontinence Cerebral palsy (HCC) Chronic kidney disease Chronic osteomyelitis of pelvic region, right ([facility]) 2019 required right ischial debridement, followed by Dr. Noland of plastics Chronic respiratory failure with hypoxia ([facility]) 3 L NC, followed by Dr. Stephy Cisse and Dr. Amalia Terry Constipation COVID-19 06/2020 Epilepsy ([facility]) followed at [facility] neurology clinic GERD (gastroesophageal reflux disease) occasional vomiting with gagging MRSA (methicillin resistant Staphylococcus aureus) 04/2016 Bilateral lungs Muscle spasticity medically refractory and has baclofen pump since 1999, followed at [facility] neuro baclofen pump clinic Nonverbal Answers yes with very long blinks per adoptive parent PEG (percutaneous endoscopic gastrostomy) status (HCC) Presence of intrathecal baclofen pump [address] 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 Urine retention occasional occurrence that requires straight cath periodically Wheelchair bound Past Surgical History: Procedure Laterality Date BACK SURGERY 1999 Marrufo rods placed BACLOFEN PUMP IMPLANTATION X 3- last 2009 CHOLECYSTECTOMY INCISION AND DRAINAGE LOWER EXTREMITY Right 12/02/2018 Procedure: INCISION AND DRAINAGE WITH BONE BIOPSY OF RIGHT ISCHIUM; Surgeon: Rad Luque MD; Location: [facility] Main OR; Service: Orthopedic INSERTION PERCUTANEOUS ENDOSCOPIC GASTROSTOMY TUBE LAMINECTOMY DECOMP THORACIC MULTI LEVEL N/A 07/27/2016 Procedure: T1-2 THORACIC FUSION REVISION ; Surgeon: Kb Ramsey MD; Location: [facility] Main OR; Service: REVISION PAIN PUMP N/A 07/27/2016 Procedure: BACLOFEN PUMP REPLACEMENT ; Surgeon: Kb Ramsey MD; Location: [facility] Main OR; Service: SALIVARY GLAND SURGERY Social History Socioeconomic History Marital status: Single Tobacco Use Smoking status: Never Smokeless tobacco: Never Vaping Use Vaping Use: Never used Substance and Sexual Activity Alcohol use: No Drug use: No Family History Adopted: Yes Family history unknown: Yes Home Medications: Outpatient Medications as of 07/14/2022 Medication Sig acetaminophen (TYLENOL) 325 MG tablet 650 mg by G-tube route every 6 (six) hours as needed for pain. acetic acid 0.25 % irrigation 120 mL daily Flush for bladder . baclofen 40,000 mcg/20mL (2,000 mcg/mL) Soln Simple continuous infusion ITB at daily dose of 649.8 mcg/day. . cannabidioL (Epidiolex) 100 mg/mL Soln 3.5 mL (350 mg total) by G-tube route 2 (two) times a day . cholecalciferol, vitamin D3, 50 mcg (2,000 unit) cap 2,000 Units by G-tube route every morning. diazePAM (VALIUM) 2 MG tablet 3 (three) tablets (6 mg total) by Per G Tube route daily as needed For seizures . diazePAM (Valtoco) 15 mg/2 spray (7.5/0.1mL x 2) Novi Instill 1 spray into each nostril as needed (Seizures, may repeat times 1 in 4 hours) . fluconazole (DIFLUCAN) 150 MG tablet by Per G Tube route When taking antibiotics . fluticasone propionate (FLONASE) 50 mcg/actuation nasal spray Instill 1 (one) spray into each nostril daily as needed for rhinitis . guaiFENesin (ROBITUSSIN) 100 mg/5 mL syrup 200 mg by G-tube route 3 (three) times a day as needed for cough . ipratropium (ATROVENT) 0.02 % nebulizer solution inhale contents of 1 vial in nebulizer twice a dayIF CONGESTED OR WHEEZING OR LABORED CAN TAKE UP TO FOUR TIMES DAILY . lamoTRIgine (LAMICTAL) 100 MG tablet take 1 tablet PER G TUBE twice a day lamoTRIgine (LAMICTAL) 150 MG tablet take 1 tablet PER G TUBE twice a day levETIRAcetam (KEPPRA) 100 mg/mL solution 1,000 mg by Per G Tube route 2 (two) times a day . loratadine (CLARITIN) 10 mg tablet 10 mg by G-tube route every morning . medroxyPROGESTERone (DEPO-PROVERA) 150 mg/mL Syrg INJECT 1ML INTRAMUSCULARLY EVERY 10 TO 13 WEEKS montelukast (SINGULAIR) 10 mg tablet 10 mg by Per G Tube route daily . multivitamin/iron/folic acid (CENTRUM ORAL) 10 mL by G-tube route every morning . omeprazole (PRILOSEC) 40 MG capsule 40 mg by G-tube route every morning . ondansetron (ZOFRAN) 4 mg/5 mL solution 5 mL (4 mg total) by Per G Tube route every 8 (eight) hoursas needed for nausea . polyethylene glycol (MIRALAX) 17 gram powder 17 g by Per G Tube route every morning . promethazine (PHENERGAN) 12.5 MG suppository Insert 12.5 mg into the rectum every 6 (six) hours as needed for nausea. Physical Exam: BP 108/70 (BP Location: Right arm, Patient Position: Lying) Pulse (!) 106 Temp 98.6 F (37 C) (Axillary) Resp 17 Wt 36.3 kg (80 lb) SpO2 100% BMI 19.29 kg/m General: NAD, chornically ill Eyes: EOMI ENT: neck supple Cardiovascular: Regular rate. Respiratory: Clear to auscultation Gastrointestinal: Soft, non tender Genitourinary: no suprapubic tenderness Musculoskeletal: No edema R buttocks with exposed baclofen pump. Skin: warm, dry Neuro: Alert. Psych: Mood appropriate. Labs, Imaging, and Studies reviewed: Invalid input(s): MAG AJ documented in this [id number] Emergency department Note* Elizabeth Nava RN - 07/15/2022 1:55 PM EST Pt to pre-op [id number] Emergency department Note* Elizabeth Nava RN - 07/15/2022 1:55 PM EST Pt to pre-op * Nava Hung RN - 07/15/2022 5:51 AM EST Pt transferred over to hospital bed. Pt resting comfortably. Denies further needs * Fernando Camacho MD - 07/14/2022 10:31 PM EST ED PROVIDER NOTE [facility] EMERGENCY DEPARTMENT NAME: Claudine Joseph AGE: 32 y.o. : 1990 VISIT DATE: 07/14/2022 CSN: [id number] PCP: Marielle Duque MD Chief Complaint Patient presents with baclofen pump exposed Patient is a 32-year-old female history of anoxic brain damage cerebral palsy epilepsy muscle spasticity presents with complaints of baclofen pump exposure. Patient and had a somewhat of a discoloredarea around the baclofen pump according to her parent and health policy nurse. But now is exposed here over the past day or 2 prompting visit. She does have some home health and noticed this as well and patient sent in for assessment. Cannot obtain a full review of systems given her underlying neurologic deficits that are chronic. Is otherwise not any fever or systemic symptoms been appropriate baseline mental status. Past Medical History: Diagnosis Date Acute respiratory failure (HCC) Due to MRSA pneumonia 04/2016; Allergic rhinitis Anoxic brain damage ([facility]) Aspiration, chronic pulmonary Bowel and bladder incontinence Cerebral palsy ([facility]) Chronic kidney disease Chronic osteomyelitis of pelvic region, right ([facility]) 2019 required right ischial debridement, followed by Dr. Noland of plastics Chronic respiratory failure with hypoxia ([facility]) 3 L NC, followed by Dr. Stephy Cisse and Dr. Amalia Terry Constipation COVID-19 06/2020 Epilepsy ([facility]) followed at [facility] neurology clinic GERD (gastroesophageal reflux disease) occasional vomiting with gagging MRSA (methicillin resistant Staphylococcus aureus) 04/2016 Bilateral lungs Muscle spasticity medically refractory and has baclofen pump since 1999, followed at [facility] neuro baclofen pump clinic Nonverbal Answers yes with very long blinks per adoptive parent PEG (percutaneous endoscopic gastrostomy) status ([facility]) Presence of intrathecal baclofen pump [address] 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 Urine retention occasional occurrence that requires straight cath periodically Wheelchair bound Past Surgical History: Procedure Laterality Date BACK SURGERY 1999 Marrufo rods placed BACLOFEN PUMP IMPLANTATION X 3- last 2009 CHOLECYSTECTOMY INCISION AND DRAINAGE LOWER EXTREMITY Right 12/02/2018 Procedure: INCISION AND DRAINAGE WITH BONE BIOPSY OF RIGHT ISCHIUM; Surgeon: Rad Luque MD; Location: [facility] Main OR; Service: Orthopedic INSERTION PERCUTANEOUS ENDOSCOPIC GASTROSTOMY TUBE LAMINECTOMY DECOMP THORACIC MULTI LEVEL N/A 07/27/2016 Procedure: T1-2 THORACIC FUSION REVISION ; Surgeon: Kb Ramsey MD; Location: [facility] Main OR; Service: REVISION PAIN PUMP N/A 07/27/2016 Procedure: BACLOFEN PUMP REPLACEMENT ; Surgeon: Kb Ramsey MD; Location: [facility] Main OR; Service: SALIVARY GLAND SURGERY Family History Adopted: Yes Family history unknown: Yes Social History Socioeconomic History Marital status: Single Tobacco Use Smoking status: Never Smokeless tobacco: Never Vaping Use Vaping Use: Never used Substance and Sexual Activity Alcohol use: No Drug use: No Previous Medications Medication Sig acetaminophen (TYLENOL) 325 MG tablet 650 mg by G-tube route every 6 (six) hours as needed for pain. acetic acid 0.25 % irrigation 120 mL daily Flush for bladder . baclofen 40,000 mcg/20mL (2,000 mcg/mL) Soln Simple continuous infusion ITB at daily dose of 649.8 mcg/day. . cannabidioL (Epidiolex) 100 mg/mL Soln 3.5 mL (350 mg total) by G-tube route 2 (two) times a day . cholecalciferol, vitamin D3, 50 mcg (2,000 unit) cap 2,000 Units by G-tube route every morning. diazePAM (VALIUM) 2 MG tablet 3 (three) tablets (6 mg total) by Per G Tube route daily as needed For seizures . diazePAM (Valtoco) 15 mg/2 spray (7.5/0.1mL x 2) Novi Instill 1 spray into each nostril as needed (Seizures, may repeat times 1 in 4 hours) . fluconazole (DIFLUCAN) 150 MG tablet by Per G Tube route When taking antibiotics . fluticasone propionate (FLONASE) 50 mcg/actuation nasal spray Instill 1 (one) spray into each nostril daily as needed for rhinitis . guaiFENesin (ROBITUSSIN) 100 mg/5 mL syrup 200 mg by G-tube route 3 (three) times a day as needed for cough . ipratropium (ATROVENT) 0.02 % nebulizer solution inhale contents of 1 vial in nebulizer twice a dayIF CONGESTED OR WHEEZING OR LABORED CAN TAKE UP TO FOUR TIMES DAILY . lamoTRIgine (LAMICTAL) 100 MG tablet take 1 tablet PER G TUBE twice a day lamoTRIgine (LAMICTAL) 150 MG tablet take 1 tablet PER G TUBE twice a day levETIRAcetam (KEPPRA) 100 mg/mL solution 1,000 mg by Per G Tube route 2 (two) times a day . loratadine (CLARITIN) 10 mg tablet 10 mg by G-tube route every morning . medroxyPROGESTERone (DEPO-PROVERA) 150 mg/mL Syrg INJECT 1ML INTRAMUSCULARLY EVERY 10 TO 13 WEEKS montelukast (SINGULAIR) 10 mg tablet 10 mg by Per G Tube route daily . multivitamin/iron/folic acid (CENTRUM ORAL) 10 mL by G-tube route every morning . omeprazole (PRILOSEC) 40 MG capsule 40 mg by G-tube route every morning . ondansetron (ZOFRAN) 4 mg/5 mL solution 5 mL (4 mg total) by Per G Tube route every 8 (eight) hoursas needed for nausea . polyethylene glycol (MIRALAX) 17 gram powder 17 g by Per G Tube route every morning . promethazine (PHENERGAN) 12.5 MG suppository Insert 12.5 mg into the rectum every 6 (six) hours as needed for nausea. Allergies Allergen Reactions Levaquin [Levofloxacin] Rash, flushing with RUE arm swelling. Augmentin [Amoxicillin-Pot Clavulanate] Rash Per mother- tolerates Zosyn, unable to tolerate amoxil (blisters upper extremity) Lactose Intolerance [Lactase] Penicillins Other (See Comments) Blisters- amoxil Ragweed Unknown Review of Systems Unable to perform ROS: Patient nonverbal Patient Vitals for the past 24 hrs: BP Temp Temp src Pulse Resp SpO2 Weight 07/14/226 -- -- -- -- (!) 23 -- -- 07/14/222224 99/71 -- -- (!) 111 (!) 24 100 % -- 07/14/222219 104/73 -- -- (!) 110 (!) 23 -- -- 07/14/227 108/73 98.6 F (37 C) Axillary (!) 121 (!) 22 97 % 36.3 kg (80 lb) Physical Exam Vitals and nursing note reviewed. Constitutional: Appearance: She is well-developed. HENT: Head: Normocephalic. Eyes: Pupils: Pupils are equal, round, and reactive to light. Neck: Vascular: No JVD. Cardiovascular: Rate and Rhythm: Normal rate and regular rhythm. Heart sounds: Normal heart sounds. Pulmonary: Effort: Pulmonary effort is normal. No respiratory distress. Breath sounds: Normal breath sounds. No wheezing or rales. Abdominal: General: Bowel sounds are normal. There is no distension. Palpations: Abdomen is soft. Tenderness: There is no abdominal tenderness. Comments: Baclofen pump is exposed in the right lateral abdomen towards the back. No purulent drainage or significant cellulitic change at this time Musculoskeletal: Comments: Patient with severe contractures of bilateral upper extremities. Skin: General: Skin is warm and dry. Capillary Refill: Capillary refill takes less than 2 seconds. Neurological: General: No focal deficit present. Mental Status: She is alert and oriented to person, place, and time. Laboratory & Radiographic Imaging (if done): No results found for this visit on 07/14/22. No orders to display Procedures MDM Number of Diagnoses or Management Options Presence of intrathecal baclofen pump Visit for wound check Diagnosis management comments: Patient be hospitalized at this time for neurosurgical consultation given baclofen pump is totally exposed need removal and revision. Otherwise hemodynamically stable on baseline mental status . . Clinical Impression: 1. Visit for wound check 2. Presence of intrathecal baclofen pump ED Disposition ED Disposition Hospitalize Condition -- Comment Recommended Level of Care: Med Surg Phone call required?: No Follow-up Information Follow-up information has not been specified. Contact information for after-discharge care Follow-up information has not been specified. Assessment Date: 04/19/20 Pain Type & Exclusions Fernando Camacho MD 07/14/222232 * Nava Hung RN - 07/14/2022 10:20 PM EST Pt's mother reports her pump has been in place for about 5 years. There has been talk of replacing the pump shortly * Amalia Benson RN - 07/14/2022 9:05 PM EST The pt wheeled to the triage desk with her mother and reports that the pt was turned on her side today and her baclofen pump became exposed. documented in this [id number] Consult note* Bashir Chappell MD - 07/15/2022 10:55 AM ESTAssociated Order(s): IP CONSULT TO NEUROLOGY Neurology Inpatient Consult [facility] 07/15/2022 Bashir Chappell MD [facility] Patient: Claudine Joseph Date of : 1990 (32 y.o. female) Referring Provider: Refer to consult order in electronic medical record PCP: Marielle Duque MD ASSESSMENT: 32 y.o. female with history of anoxic brain injury, cerebral palsy, chronic kidney disease, epilepsy, spasticity with a baclofen pump presented to [facility] on 07/14/2022 with severe spasticity with baclofen pump that has come through the skin and needs to be removed. I believe neurology was consulted to manage oral baclofen should the patient not have the baclofen pump replaced. I have reached out to neurosurgery but have not heard back yet on whether they are replacing the pump or simply removing the pump. I will reach out to the patient's spasticity team to find out how much oral replacement baclofen she will need based on her current pump settings if she is no longer g etting baclofen through the pump. PLAN: 1. If the pump is not being replaced, I will determine an oral baclofen dosing and order that for the postoperative period. 2. It is imperative that the patient continue taking her antiepileptic medications while she is in the hospital in the perioperative period. In particular, if we cannot get Epidiolex then the patient's family should have this available so it can be administered to the patient while she is here. I di scussed this with the patient's bedside nurse and she is working on this. Admitted with these risk variables:Anoxic Brain Damage. Please see assessment and plan for further details. DIAGNOSTIC TESTING SUMMARY: Resulted Testing: (MRI/CT/XR, EEG, EMG, CSF, Cardiac, Labs) ESR 81, CRP 26.3, CBC with a white count of 12 and unremarkable BMP SUBJECTIVE: Chief Complaint/Reason for Consult: Baclofen pump removal Informant(s): Care Team/Chart History of Present Illness: Claudine Joseph is a 32 y.o. female The patient was admitted through the [facility] because of exposure of the baclofen pump tubing in the right buttock. The patient was admitted for neurosurgical removal of the pump. Neurology was consulted to manage oral baclofen if the pump is not going to be replaced The patient's family was not at the bedside when I was in the room. The patient can supply no history. I have messaged the neurosurgical team and spoke with the bedside nurse but it is not clear if the patient will be having the baclofen pump removed or replaced. Review of Systems: All systems reviewed and negative except pertinent positives and negatives documented in the History of Present Illness (HPI). History: Past Medical History: Diagnosis Date Acute respiratory failure (HCC) Due to MRSA pneumonia 04/2016; Allergic rhinitis Anoxic brain damage ([facility]) Aspiration, chronic pulmonary Bowel and bladder incontinence Cerebral palsy ([facility]) Chronic kidney disease Chronic osteomyelitis of pelvic region, right ([facility]) 2019 required right ischial debridement, followed by Dr. Noland of plastics Chronic respiratory failure with hypoxia ([facility]) 3 L NC, followed by Dr. Stephy Cisse and Dr. Amalia Terry Constipation COVID-19 06/2020 Epilepsy ([facility]) followed at [facility] neurology clinic GERD (gastroesophageal reflux disease) occasional vomiting with gagging MRSA (methicillin resistant Staphylococcus aureus) 04/2016 Bilateral lungs Muscle spasticity medically refractory and has baclofen pump since 1999, followed at [facility] neuro baclofen pump clinic Nonverbal Answers yes with very long blinks per adoptive parent PEG (percutaneous endoscopic gastrostomy) status ([facility]) Presence of intrathecal baclofen pump [address] 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 Urine retention occasional occurrence that requires straight cath periodically Wheelchair bound Past Surgical History: Procedure Laterality Date BACK SURGERY 1999 Marrufo rods placed BACLOFEN PUMP IMPLANTATION X 3- last 2009 CHOLECYSTECTOMY INCISION AND DRAINAGE LOWER EXTREMITY Right 12/02/2018 Procedure: INCISION AND DRAINAGE WITH BONE BIOPSY OF RIGHT ISCHIUM; Surgeon: Rad Luque MD; Location: [facility] Main OR; Service: Orthopedic INSERTION PERCUTANEOUS ENDOSCOPIC GASTROSTOMY TUBE LAMINECTOMY DECOMP THORACIC MULTI LEVEL N/A 07/27/2016 Procedure: T1-2 THORACIC FUSION REVISION ; Surgeon: Kb Ramsey MD; Location: [facility] Main OR; Service: REVISION PAIN PUMP N/A 07/27/2016 Procedure: BACLOFEN PUMP REPLACEMENT ; Surgeon: Kb Ramsey MD; Location: [facility] Main OR; Service: SALIVARY GLAND SURGERY Social History: reports that she has never smoked. She has never used smokeless tobacco. She reports that she does not drink alcohol and does not use drugs. Family History Adopted: Yes Family history unknown: Yes Additional History Comments: None Allergies: Levaquin [levofloxacin], Augmentin [amoxicillin-pot clavulanate], Lactose intolerance [lactase], Penicillins, and Ragweed HOME Medications: Outpatient Medications Marked as Taking for the 07/14/22 encounter (Hospital Encounter) Medication Sig acetaminophen (TYLENOL) 325 MG tablet 650 mg by G-tube route every 6 (six) hours as needed for pain. acetic acid 0.25 % irrigation 120 mL daily Flush for bladder . cannabidioL (Epidiolex) 100 mg/mL Soln 3.5 mL (350 mg total) by G-tube route 2 (two) times a day . cholecalciferol, vitamin D3, 50 mcg (2,000 unit) cap 2,000 Units by G-tube route every morning. diazePAM (VALIUM) 2 MG tablet 3 (three) tablets (6 mg total) by Per G Tube route daily as needed For seizures . diazePAM (Valtoco) 15 mg/2 spray (7.5/0.1mL x 2) Novi Instill 1 spray into each nostril as needed (Seizures, may repeat times 1 in 4 hours) . fluconazole (DIFLUCAN) 150 MG tablet by Per G Tube route When taking antibiotics . fluticasone propionate (FLONASE) 50 mcg/actuation nasal spray Instill 1 (one) spray into each nostril daily as needed for rhinitis . guaiFENesin (ROBITUSSIN) 100 mg/5 mL syrup 200 mg by G-tube route 3 (three) times a day as needed for cough . ipratropium (ATROVENT) 0.02 % nebulizer solution inhale contents of 1 vial in nebulizer twice a dayIF CONGESTED OR WHEEZING OR LABORED CAN TAKE UP TO FOUR TIMES DAILY . lamoTRIgine (LAMICTAL) 100 MG tablet take 1 tablet PER G TUBE twice a day lamoTRIgine (LAMICTAL) 150 MG tablet take 1 tablet PER G TUBE twice a day levETIRAcetam (KEPPRA) 100 mg/mL solution 1,000 mg by Per G Tube route 2 (two) times a day . loratadine (CLARITIN) 10 mg tablet 10 mg by G-tube route every morning . medroxyPROGESTERone (DEPO-PROVERA) 150 mg/mL Syrg INJECT 1ML INTRAMUSCULARLY EVERY 10 TO 13 WEEKS montelukast (SINGULAIR) 10 mg tablet 10 mg by Per G Tube route daily . multivitamin/iron/folic acid (CENTRUM ORAL) 10 mL by G-tube route every morning . omeprazole (PRILOSEC) 40 MG capsule 40 mg by G-tube route every morning . ondansetron (ZOFRAN) 4 mg/5 mL solution 5 mL (4 mg total) by Per G Tube route every 8 (eight) hoursas needed for nausea . polyethylene glycol (MIRALAX) 17 gram powder 17 g by Per G Tube route every morning . promethazine (PHENERGAN) 12.5 MG suppository Insert 12.5 mg into the rectum every 6 (six) hours as needed for nausea. [DISCONTINUED] baclofen 40,000 mcg/20mL (2,000 mcg/mL) Soln Simple continuous infusion ITB at dailydose of 649.8 mcg/day. . HOSPITAL Infusions: sodium chloride 0.9 % sodium chloride 0.9 % Stopped (07/15/22923) sodium chloride 0.9 % 75 mL/hr (07/15/22924) HOSPITAL Scheduled Medications: cholecalciferol (vitamin D3) 2,000 Units Tube Daily lamoTRIgine 250 mg Tube BID levETIRAcetam 1,000 mg Tube BID loratadine 10 mg Tube QAM montelukast 10 mg Tube Daily pantoprazole 40 mg Intravenous Daily polyethylene glycol 17 g Tube QAM sodium chloride (PF) 5 mL Intravenous Q8H [facility] PRN Medications: acetaminophen, guaiFENesin, ipratropium, ondansetron OR ondansetron, Saline lock IV AND sodium chloride (PF) AND sodium chloride (PF) AND sodium chloride 0.9 % OBJECTIVE: Physical Examination: BP (!) 98/57 Pulse (!) 101 Temp 98.6 F (37 C) (Axillary) Resp (!) 19 Wt 36.3 kg (80 lb) SpO2 100% BMI 19.29 kg/m CAMEJO: DNFC: Does Not Follow Commands FRANKLIN: Unable to Assess The patient is lying in bed with her head turned to the left. The patient does not follow any commands although she appears to be alert. She does avoid my light when I try to look at her pupils. She did not answer yes/no questions with eye blinks. Extraocular movements appear to be intact. Pupils appear to be round and reactive although it is difficult as she avoids the light. Her head is turned to the left but the face otherwise appears symmetric. Tongue is midline. She did blink to threat bilaterally. She has severe spasticity throughout her body and the axial musculature resulting in head turning to the left as well as some neck stiffness. She also has severe spasticity and contractures of the arms. The lower extremities have contractures at the ankles but the tone is more reduced. I did not do reflexes as it would not really add to the picture and the patient appeared to be uncomfortable when I was moving her limbs. There was ankle clonus bilaterally. Toes were downgoing bilaterally. With painful stimulation in her limbs she does have increased spasticity and her arms raise up off the bed slightly. When I held her arms up and let go they slowly returned back to the bed so there appears to be some resistance. There was no movement in the legs. [facility] Work Phone: [phone] 373-209311-16-2022 Telephone encounter Note* Telephone Encounter - Falguni Curry RN - 07/15/2022 10:06 AM EST Signed prescription faxed to [facility] [phone], confirmation received. [id number] Miscellaneous Notes* Telephone Encounter - Falguni Curry RN - 07/15/2022 10:06 AM EST Signed prescription faxed to [facility] [phone], confirmation received. * Telephone Encounter - Falguni Curry RN - 07/15/2022 9:18 AM EST Patient is currently in the ER with exposed ITB pump and elevated CRP/ESR/WBC. Request from [facility] for refills for home ITB fills. documented in this [id number] Telephone encounter Note* Telephone Encounter - Falguni Curry RN - 07/15/2022 9:18 AM EST Patient is currently in the ER with exposed ITB pump and elevated CRP/ESR/WBC. Request from [facility] for refills for home ITB fills. [id number] Emergency department Note* Nava Hung RN - 07/15/2022 5:51 AM EST Pt transferred over to hospital bed. Pt resting comfortably. Denies further needs [id number] Consult note* Adrienne Baig CNP - 07/15/2022 1:34 AM EST Images from the original note were not included. Neurosurgery Inpatient Consult [facility] 07/15/2022 Adrienne Baig CNP [facility] Patient: Claudine Joseph Date of : 1990 (32 y.o.) Referring Provider: Refer to consult order in electronic medical record PCP: Marielle Duque MD ASSESSMENT/PLAN: Baclofen pump failure -Exposed baclofen pump right lower lateral abdomen area -Last revised at [facility] with Dr. Ramsey on 07/27/2016 -No obvious signs of infection. Check sed rate, CRP, WBC count -Keep NPO -Hold AC/AP medications -Medicine team for preoperative clearance -Will discuss with Dr. Sharma Admitted with these risk variables:None. Please see assessment and plan for further details. SUBJECTIVE: Chief Complaint/Reason for Consult: Exposed baclofen pump/need for surgical removal Informant(s): Care Team/Chart History of Present Illness: Claudine Joseph is a 32 y.o. female with history of spastic cerebral palsy with quadriplegia-wheelchair bound, baclofen pump revision at [facility] with Dr Ramsey on 07/27/2016, back surgery in 1999 with prior Marrufo Rods, chronic hypoxic respiratory failure on 2-3L NC, seizures, chronic decubitus ulcers, urinary retention with chronic sage and dysphagia s/p PEG tube who presents with anexposed baclofen pump. Her adopted mother states she noticed the exposed pump 1-2 days ago, prior to that there was a dark area under the skin where the pump is located. She states she is unhappy with the placement of the pump because it was placed in a location where she lays. She does not want the patient to see Dr. Ramsey again in the future. She lives at home with her adopted mother. Her mother denies the patient having any fevers. She reports that the patient communicates intermittently via blinking. She does not take any anticoagulantsor antiplatelet medications. Review of Systems: Unable to perform ROS due to patient's decreased mental status. Past Medical History: has a past medical history of Acute respiratory failure ([facility]), Allergic rhinitis, Anoxic brain damage ([facility]), Aspiration, chronic pulmonary, Bowel and bladder incontinence, Cerebral palsy ([facility]), Chronic kidney disease, Chronic osteomyelitis of pelvic region, right ([facility]) (2018),Chronic respiratory failure with hypoxia ([facility]), Constipation, COVID-19 (06/2020), Epilepsy ([facility]), GERD (gastroesophageal reflux disease), MRSA (methicillin resistant Staphylococcus aureus) (04/2016),Muscle spasticity, Nonverbal, PEG (percutaneous endoscopic gastrostomy) status ([facility]), Presence of intrathecal baclofen pump (1999), Restrictive lung disease due to kyphoscoliosis, Urine retention, and Wheelchair bound. Past Surgical History: has a past surgical history that includes Peg Tube Insertion; Baclofen pump implantation; Salivary gland surgery; Back surgery (1999); Cholecystectomy; Pain Pump Revision (N/A,07/27/2016); Laminectomy Decomp Thoracic Multi Level (N/A, 07/27/2016); and Incision And Drainage Lower Extremity (Right, 12/02/2018). Social History: reports that she has never smoked. She has never used smokeless tobacco. She reports that she does not drink alcohol and does not use drugs. Family History: Unknown, patient adopted Allergies: is allergic to levaquin [levofloxacin], augmentin [amoxicillin-pot clavulanate], lactoseintolerance [lactase], penicillins, and ragweed. HOME Medications: Prior to Admission medications Medication Sig Start Date End Date Taking? Authorizing Provider acetaminophen (TYLENOL) 325 MG tablet 650 mg by G-tube route every 6 (six) hours as needed for pain. Yes Historical Provider, acetic acid 0.25 % irrigation 120 mL daily Flush for bladder . 10/31/21 Yes Historical Provider, baclofen 40,000 mcg/20mL (2,000 mcg/mL) Soln Simple continuous infusion ITB at daily dose of 649.8 mcg/day. . 08/26/21 Yes Radha Marquez CNP cannabidioL (Epidiolex) 100 mg/mL Soln 3.5 mL (350 mg total) by G-tube route 2 (two) times a day . 02/16/22 Yes Yany Wright CNP cholecalciferol, vitamin D3, 50 mcg (2,000 unit) cap 2,000 Units by G-tube route every morning. YesHistorical Provider, diazePAM (VALIUM) 2 MG tablet 3 (three) tablets (6 mg total) by Per G Tube route daily as needed For seizures . 11/27/21 Yes Yany Wright CNP diazePAM (Valtoco) 15 mg/2 spray (7.5/0.1mL x 2) Novi Instill 1 spray into each nostril as needed (Seizures, may repeat times 1 in 4 hours) . 11/27/21 Yes Yany Wright CNP fluconazole (DIFLUCAN) 150 MG tablet by Per G Tube route When taking antibiotics . 02/06/21 Yes Historical Provider, fluticasone propionate (FLONASE) 50 mcg/actuation nasal spray Instill 1 (one) spray into each nostril daily as needed for rhinitis . 01/11/20 Yes Stephy Cisse MD guaiFENesin (ROBITUSSIN) 100 mg/5 mL syrup 200 mg by G-tube route 3 (three) times a day as needed for cough . Yes Historical Provider, ipratropium (ATROVENT) 0.02 % nebulizer solution inhale contents of 1 vial in nebulizer twice a dayIF CONGESTED OR WHEEZING OR LABORED CAN TAKE UP TO FOUR TIMES DAILY . 01/15/21 Yes Stephy Cisse MD lamoTRIgine (LAMICTAL) 100 MG tablet take 1 tablet PER G TUBE twice a day 10/17/21 Yes Yany Wright CNP lamoTRIgine (LAMICTAL) 150 MG tablet take 1 tablet PER G TUBE twice a day 10/17/21 Yes Yany Wright CNP levETIRAcetam (KEPPRA) 100 mg/mL solution 1,000 mg by Per G Tube route 2 (two) times a day . Yes Historical Provider, loratadine (CLARITIN) 10 mg tablet 10 mg by G-tube route every morning . Yes Historical Provider, medroxyPROGESTERone (DEPO-PROVERA) 150 mg/mL Syrg INJECT 1ML INTRAMUSCULARLY EVERY 10 TO 13 WEEKS 05/14/20 Yes Historical Provider, montelukast (SINGULAIR) 10 mg tablet 10 mg by Per G Tube route daily . 12/16/19 Yes Historical Provider, multivitamin/iron/folic acid (CENTRUM ORAL) 10 mL by G-tube route every morning . Yes Historical Provider, omeprazole (PRILOSEC) 40 MG capsule 40 mg by G-tube route every morning . Yes Historical Provider, ondansetron (ZOFRAN) 4 mg/5 mL solution 5 mL (4 mg total) by Per G Tube route every 8 (eight) hoursas needed for nausea . 10/17/21 07/14/22 Yes Magalie Rome MD polyethylene glycol (MIRALAX) 17 gram powder 17 g by Per G Tube route every morning . Yes Historical Provider, promethazine (PHENERGAN) 12.5 MG suppository Insert 12.5 mg into the rectum every 6 (six) hours as needed for nausea. Yes Historical Provider, HOSPITAL Infusions: sodium chloride 0.9 % HOSPITAL Scheduled Medications: enoxaparin (LOVENOX) injection 30 mg Subcutaneous Daily lamoTRIgine 250 mg Tube BID levETIRAcetam 1,000 mg Tube BID loratadine 10 mg Tube QAM montelukast 10 mg Tube Daily pantoprazole 40 mg Intravenous Daily polyethylene glycol 17 g Tube [facility] PRN Medications: acetaminophen, guaiFENesin, ipratropium, ondansetron OR ondansetron OBJECTIVE: Physical Examination: BP 102/70 (BP Location: Right arm, Patient Position: Lying) Pulse (!) 105 Temp 98.6 F (37 C) (Axillary) Resp (!) 19 Wt 36.3 kg (80 lb) SpO2 100% BMI 19.29 kg/m CAMEJO: DNFC: Does Not Follow Commands FRANKLIN: Unable to Assess Physical Exam: BP 108/70 (BP Location: Right arm, Patient Position: Lying) Pulse (!) 106 Temp 98.6 F (37 C) (Axillary) Resp 17 Wt 36.3 kg (80 lb) SpO2 100% BMI 19.29 kg/m General: NAD, chronically ill Eyes: EOMI ENT: neck supple, head tilts to the left Gastrointestinal: Soft, non tender Musculoskeletal: Right UE contracted-spontaneous movement, Left UE contracted- spontaneous movement,Right Lower extremity-flexed at the knee-no movement noted. Left lower extremity extended moves foot to tactile stimulation. Does not follow commands Skin: warm, dry, right lateral abdomen with exposed baclofen pum Neuro: Alert. Moans aloud occasionally. Grimaces. Does not follow commands DATA REVIEWED: Labs: Lab Results Component Value Date NA 140 01/20/2022 FRD6HBF 54.0 (H) 09/20/2019 INR 1.0 11/21/2016 HGB 10.5 (L) 01/20/2022 WBC 9.97 01/20/2022 PLT 294 01/20/2022 BUN 10 01/20/2022 CREATININE 0.23 (L) 01/20/2022 Associated attestation - Peter Portillo Ed, MD - 07/15/2022 2:12 PM EST I have reviewed the notes, assessments, and/or procedures performed by the YUDY, I concur with her/his documentation of Claudine Joseph, except as noted below. Patient seen and examined by me on 07/15/22 32 yo female with history of spastic CP and quadriplegia s/p baclofen pump placement many years ago, now presents with a pump that has eroded through the abdominal pocket. The pump became exposed 1-2days ago. The patient lays on the right side due to scoliosis . On exam she is non verbal. There is spasticity Estefani 1 in B LE and UE. There are contractures present. I couldn't elicit clonus. The pump incision is fully eroded with exposure of about a fifth ofthe device. The device was interrogated and is still working. There is a small amount of fluid coming from the pocket. Imaging shows the catheter in the thoracic region. She has marrufo rods throughout her spine. Given that she is on high doses of baclofen the plan is to remove the pump and replace on the left side. She will need cultures of the pocket and CSF. She may also need additional surgery with plastics if the pocket does not close appropriately. Discussed with mother the risks including infection as the patient has an active infection in the pocket area. Consent was obtained. We will proceed to OR today. [facility] Work Phone: [phone] History and physical note* Magalie Ross Jr., MD - 07/14/2022 11:52 PM EST Images from the original note were not included. [facility] History and Physical Note 07/14/22 Claudine Joseph 1990 [id number] Assessment/Plan: Claudine Joseph is a 32 y.o. female with a history of anoxic brain injury, cerebral palsy, CKD, epilepsy, spasticity s/p baclofen pump who presented to [facility] 07/14/2022 with exposure of a portion of her baclofen pump. Baclofen pump failure: Exposed baclofen pump R buttock/hip area. No obvious signs of infection or drainage. Last revised at [facility] with Dr Ramsey (neurosurgry). Neurosurgery consulted for evaluaton. Anoxic brain injury: Hx with intermittent communication with blinking. CKD: Hx normal renal function on labs. Cerebral palsy: Spastic. Neurogenic bladder with chornic sage. NPO, all meds and nutrition throug G tube. Epilepsy: Home meds continued. Code status: Full unv DVT Prophylaxis: subcut lovenox Admitted with these risk variables:None. Please see assessment and plan for further details. Current living situation: home Expected Disposition: home Estimated discharge date: TBD Chief Complaint: Exposed baclofen pump History of Present Illness: For the last two days has yamila little more agitated than normal. Noted the day of admission that her baclofen pump wound has opened up with exposed pump. NO obvious fevers or chills. Takes all meds sand nutrition through peg. Has chornic sage. ROS: Unable to perform a complete review of systems due to Past Medical, Surgical, Social, Family History: Past Medical History: Diagnosis Date Acute respiratory failure (HCC) Due to MRSA pneumonia 04/2016; Allergic rhinitis Anoxic brain damage ([facility]) Aspiration, chronic pulmonary Bowel and bladder incontinence Cerebral palsy ([facility]) Chronic kidney disease Chronic osteomyelitis of pelvic region, right ([facility]) 2019 required right ischial debridement, followed by Dr. Noland of plastics Chronic respiratory failure with hypoxia ([facility]) 3 L NC, followed by Dr. Stephy Cisse and Dr. Amalia Terry Constipation COVID-19 06/2020 Epilepsy ([facility]) followed at [facility] neurology clinic GERD (gastroesophageal reflux disease) occasional vomiting with gagging MRSA (methicillin resistant Staphylococcus aureus) 04/2016 Bilateral lungs Muscle spasticity medically refractory and has baclofen pump since 1999, followed at [facility] neuro baclofen pump clinic Nonverbal Answers yes with very long blinks per adoptive parent PEG (percutaneous endoscopic gastrostomy) status ([facility]) Presence of intrathecal baclofen pump [address] 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 Urine retention occasional occurrence that requires straight cath periodically Wheelchair bound Past Surgical History: Procedure Laterality Date BACK SURGERY 1999 Marrufo rods placed BACLOFEN PUMP IMPLANTATION X 3- last 2009 CHOLECYSTECTOMY INCISION AND DRAINAGE LOWER EXTREMITY Right 12/02/2018 Procedure: INCISION AND DRAINAGE WITH BONE BIOPSY OF RIGHT ISCHIUM; Surgeon: Rad Luque MD; Location: [facility] Main OR; Service: Orthopedic INSERTION PERCUTANEOUS ENDOSCOPIC GASTROSTOMY TUBE LAMINECTOMY DECOMP THORACIC MULTI LEVEL N/A 07/27/2016 Procedure: T1-2 THORACIC FUSION REVISION ; Surgeon: Kb Ramsey MD; Location: [facility] Main OR; Service: REVISION PAIN PUMP N/A 07/27/2016 Procedure: BACLOFEN PUMP REPLACEMENT ; Surgeon: Kb Ramsey MD; Location: [facility] Main OR; Service: SALIVARY GLAND SURGERY Social History Socioeconomic History Marital status: Single Tobacco Use Smoking status: Never Smokeless tobacco: Never Vaping Use Vaping Use: Never used Substance and Sexual Activity Alcohol use: No Drug use: No Family History Adopted: Yes Family history unknown: Yes Home Medications: Outpatient Medications as of 07/14/2022 Medication Sig acetaminophen (TYLENOL) 325 MG tablet 650 mg by G-tube route every 6 (six) hours as needed for pain. acetic acid 0.25 % irrigation 120 mL daily Flush for bladder . baclofen 40,000 mcg/20mL (2,000 mcg/mL) Soln Simple continuous infusion ITB at daily dose of 649.8 mcg/day. . cannabidioL (Epidiolex) 100 mg/mL Soln 3.5 mL (350 mg total) by G-tube route 2 (two) times a day . cholecalciferol, vitamin D3, 50 mcg (2,000 unit) cap 2,000 Units by G-tube route every morning. diazePAM (VALIUM) 2 MG tablet 3 (three) tablets (6 mg total) by Per G Tube route daily as needed For seizures . diazePAM (Valtoco) 15 mg/2 spray (7.5/0.1mL x 2) Novi Instill 1 spray into each nostril as needed (Seizures, may repeat times 1 in 4 hours) . fluconazole (DIFLUCAN) 150 MG tablet by Per G Tube route When taking antibiotics . fluticasone propionate (FLONASE) 50 mcg/actuation nasal spray Instill 1 (one) spray into each nostril daily as needed for rhinitis . guaiFENesin (ROBITUSSIN) 100 mg/5 mL syrup 200 mg by G-tube route 3 (three) times a day as needed for cough . ipratropium (ATROVENT) 0.02 % nebulizer solution inhale contents of 1 vial in nebulizer twice a dayIF CONGESTED OR WHEEZING OR LABORED CAN TAKE UP TO FOUR TIMES DAILY . lamoTRIgine (LAMICTAL) 100 MG tablet take 1 tablet PER G TUBE twice a day lamoTRIgine (LAMICTAL) 150 MG tablet take 1 tablet PER G TUBE twice a day levETIRAcetam (KEPPRA) 100 mg/mL solution 1,000 mg by Per G Tube route 2 (two) times a day . loratadine (CLARITIN) 10 mg tablet 10 mg by G-tube route every morning . medroxyPROGESTERone (DEPO-PROVERA) 150 mg/mL Syrg INJECT 1ML INTRAMUSCULARLY EVERY 10 TO 13 WEEKS montelukast (SINGULAIR) 10 mg tablet 10 mg by Per G Tube route daily . multivitamin/iron/folic acid (CENTRUM ORAL) 10 mL by G-tube route every morning . omeprazole (PRILOSEC) 40 MG capsule 40 mg by G-tube route every morning . ondansetron (ZOFRAN) 4 mg/5 mL solution 5 mL (4 mg total) by Per G Tube route every 8 (eight) hoursas needed for nausea . polyethylene glycol (MIRALAX) 17 gram powder 17 g by Per G Tube route every morning . promethazine (PHENERGAN) 12.5 MG suppository Insert 12.5 mg into the rectum every 6 (six) hours as needed for nausea. Physical Exam: BP 108/70 (BP Location: Right arm, Patient Position: Lying) Pulse (!) 106 Temp 98.6 F (37 C) (Axillary) Resp 17 Wt 36.3 kg (80 lb) SpO2 100% BMI 19.29 kg/m General: NAD, chornically ill Eyes: EOMI ENT: neck supple Cardiovascular: Regular rate. Respiratory: Clear to auscultation Gastrointestinal: Soft, non tender Genitourinary: no suprapubic tenderness Musculoskeletal: No edema R buttocks with exposed baclofen pump. Skin: warm, dry Neuro: Alert. Psych: Mood appropriate. Labs, Imaging, and Studies reviewed: Invalid input(s): [facility] Work Phone: [phone] Physician Emergency department Note* Fernando Camacho MD - 07/14/2022 10:31 PM EST ED PROVIDER NOTE [facility] EMERGENCY DEPARTMENT NAME: Claudine Joseph AGE: 32 y.o. : 1990 VISIT DATE: 07/14/2022 CSN: [id number] PCP: Marielle Duque MD Chief Complaint Patient presents with baclofen pump exposed Patient is a 32-year-old female history of anoxic brain damage cerebral palsy epilepsy muscle spasticity presents with complaints of baclofen pump exposure. Patient and had a somewhat of a discoloredarea around the baclofen pump according to her parent and health policy nurse. But now is exposed here over the past day or 2 prompting visit. She does have some home health and noticed this as well and patient sent in for assessment. Cannot obtain a full review of systems given her underlying neurologic deficits that are chronic. Is otherwise not any fever or systemic symptoms been appropriate baseline mental status. Past Medical History: Diagnosis Date Acute respiratory failure (HCC) Due to MRSA pneumonia 04/2016; Allergic rhinitis Anoxic brain damage ([facility]) Aspiration, chronic pulmonary Bowel and bladder incontinence Cerebral palsy ([facility]) Chronic kidney disease Chronic osteomyelitis of pelvic region, right (HCC) 2019 required right ischial debridement, followed by Dr. Noland of plastics Chronic respiratory failure with hypoxia ([facility]) 3 L NC, followed by Dr. Stephy Cisse and Dr. Amalia Terry Constipation COVID-19 06/2020 Epilepsy ([facility]) followed at [facility] neurology clinic GERD (gastroesophageal reflux disease) occasional vomiting with gagging MRSA (methicillin resistant Staphylococcus aureus) 04/2016 Bilateral lungs Muscle spasticity medically refractory and has baclofen pump since 1999, followed at [facility] neuro baclofen pump clinic Nonverbal Answers yes with very long blinks per adoptive parent PEG (percutaneous endoscopic gastrostomy) status ([facility]) Presence of intrathecal baclofen pump [address] 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 Urine retention occasional occurrence that requires straight cath periodically Wheelchair bound Past Surgical History: Procedure Laterality Date BACK SURGERY 1999 Marrufo rods placed BACLOFEN PUMP IMPLANTATION X 3- last 2009 CHOLECYSTECTOMY INCISION AND DRAINAGE LOWER EXTREMITY Right 12/02/2018 Procedure: INCISION AND DRAINAGE WITH BONE BIOPSY OF RIGHT ISCHIUM; Surgeon: Rad Luque MD; Location: [facility] Main OR; Service: Orthopedic INSERTION PERCUTANEOUS ENDOSCOPIC GASTROSTOMY TUBE LAMINECTOMY DECOMP THORACIC MULTI LEVEL N/A 07/27/2016 Procedure: T1-2 THORACIC FUSION REVISION ; Surgeon: Kb Ramsey MD; Location: [facility] Main OR; Service: REVISION PAIN PUMP N/A 07/27/2016 Procedure: BACLOFEN PUMP REPLACEMENT ; Surgeon: Kb Ramsey MD; Location: [facility] Main OR; Service: SALIVARY GLAND SURGERY Family History Adopted: Yes Family history unknown: Yes Social History Socioeconomic History Marital status: Single Tobacco Use Smoking status: Never Smokeless tobacco: Never Vaping Use Vaping Use: Never used Substance and Sexual Activity Alcohol use: No Drug use: No Previous Medications Medication Sig acetaminophen (TYLENOL) 325 MG tablet 650 mg by G-tube route every 6 (six) hours as needed for pain. acetic acid 0.25 % irrigation 120 mL daily Flush for bladder . baclofen 40,000 mcg/20mL (2,000 mcg/mL) Soln Simple continuous infusion ITB at daily dose of 649.8 mcg/day. . cannabidioL (Epidiolex) 100 mg/mL Soln 3.5 mL (350 mg total) by G-tube route 2 (two) times a day . cholecalciferol, vitamin D3, 50 mcg (2,000 unit) cap 2,000 Units by G-tube route every morning. diazePAM (VALIUM) 2 MG tablet 3 (three) tablets (6 mg total) by Per G Tube route daily as needed For seizures . diazePAM (Valtoco) 15 mg/2 spray (7.5/0.1mL x 2) Novi Instill 1 spray into each nostril as needed (Seizures, may repeat times 1 in 4 hours) . fluconazole (DIFLUCAN) 150 MG tablet by Per G Tube route When taking antibiotics . fluticasone propionate (FLONASE) 50 mcg/actuation nasal spray Instill 1 (one) spray into each nostril daily as needed for rhinitis . guaiFENesin (ROBITUSSIN) 100 mg/5 mL syrup 200 mg by G-tube route 3 (three) times a day as needed for cough . ipratropium (ATROVENT) 0.02 % nebulizer solution inhale contents of 1 vial in nebulizer twice a dayIF CONGESTED OR WHEEZING OR LABORED CAN TAKE UP TO FOUR TIMES DAILY . lamoTRIgine (LAMICTAL) 100 MG tablet take 1 tablet PER G TUBE twice a day lamoTRIgine (LAMICTAL) 150 MG tablet take 1 tablet PER G TUBE twice a day levETIRAcetam (KEPPRA) 100 mg/mL solution 1,000 mg by Per G Tube route 2 (two) times a day . loratadine (CLARITIN) 10 mg tablet 10 mg by G-tube route every morning . medroxyPROGESTERone (DEPO-PROVERA) 150 mg/mL Syrg INJECT 1ML INTRAMUSCULARLY EVERY 10 TO 13 WEEKS montelukast (SINGULAIR) 10 mg tablet 10 mg by Per G Tube route daily . multivitamin/iron/folic acid (CENTRUM ORAL) 10 mL by G-tube route every morning . omeprazole (PRILOSEC) 40 MG capsule 40 mg by G-tube route every morning . ondansetron (ZOFRAN) 4 mg/5 mL solution 5 mL (4 mg total) by Per G Tube route every 8 (eight) hoursas needed for nausea . polyethylene glycol (MIRALAX) 17 gram powder 17 g by Per G Tube route every morning . promethazine (PHENERGAN) 12.5 MG suppository Insert 12.5 mg into the rectum every 6 (six) hours as needed for nausea. Allergies Allergen Reactions Levaquin [Levofloxacin] Rash, flushing with RUE arm swelling. Augmentin [Amoxicillin-Pot Clavulanate] Rash Per mother- tolerates Zosyn, unable to tolerate amoxil (blisters upper extremity) Lactose Intolerance [Lactase] Penicillins Other (See Comments) Blisters- amoxil Ragweed Unknown Review of Systems Unable to perform ROS: Patient nonverbal Patient Vitals for the past 24 hrs: BP Temp Temp src Pulse Resp SpO2 Weight 07/14/222225 -- -- -- -- (!) 23 -- -- 07/14/222224 99/71 -- -- (!) 111 (!) 24 100 % -- 07/14/222219 104/73 -- -- (!) 110 (!) 23 -- -- 07/14/222116 108/73 98.6 F (37 C) Axillary (!) 121 (!) 22 97 % 36.3 kg (80 lb) Physical Exam Vitals and nursing note reviewed. Constitutional: Appearance: She is well-developed. HENT: Head: Normocephalic. Eyes: Pupils: Pupils are equal, round, and reactive to light. Neck: Vascular: No JVD. Cardiovascular: Rate and Rhythm: Normal rate and regular rhythm. Heart sounds: Normal heart sounds. Pulmonary: Effort: Pulmonary effort is normal. No respiratory distress. Breath sounds: Normal breath sounds. No wheezing or rales. Abdominal: General: Bowel sounds are normal. There is no distension. Palpations: Abdomen is soft. Tenderness: There is no abdominal tenderness. Comments: Baclofen pump is exposed in the right lateral abdomen towards the back. No purulent drainage or significant cellulitic change at this time Musculoskeletal: Comments: Patient with severe contractures of bilateral upper extremities. Skin: General: Skin is warm and dry. Capillary Refill: Capillary refill takes less than 2 seconds. Neurological: General: No focal deficit present. Mental Status: She is alert and oriented to person, place, and time. Laboratory & Radiographic Imaging (if done): No results found for this visit on 07/14/22. No orders to display Procedures MDM Number of Diagnoses or Management Options Presence of intrathecal baclofen pump Visit for wound check Diagnosis management comments: Patient be hospitalized at this time for neurosurgical consultation given baclofen pump is totally exposed need removal and revision. Otherwise hemodynamically stable on baseline mental status . . Clinical Impression: 1. Visit for wound check 2. Presence of intrathecal baclofen pump ED Disposition ED Disposition Hospitalize Condition -- Comment Recommended Level of Care: Med Surg Phone call required?: No Follow-up Information Follow-up information has not been specified. Contact information for after-discharge care Follow-up information has not been specified. Assessment Date: 04/19/20 Pain Type & Exclusions Fernando Camacho MD 07/14/222232 [facility] Work Phone: [phone] Emergency department Note* Nava Hung RN - 07/14/2022 10:20 PM EST Pt's mother reports her pump has been in place for about 5 years. There has been talk of replacing the pump shortly [id number] Emergency [facility] Triage note* Amalia Benson RN - 07/14/2022 9:05 PM EST The pt wheeled to the triage desk with her mother and reports that the pt was turned on her side today and her baclofen pump became exposed. [id number] Telephone encounter Note* Telephone Encounter - Chacorta Ansari MA - 02/16/2022 2:20 PM EDT [facility] called to get a refill on her epidiolex. Requested Prescriptions Pending Prescriptions Disp Refills cannabidioL (Epidiolex) 100 mg/mL Soln 250 mL 11 Si.5 mL (350 mg total) by G-tube route 2 (two) times a day . [id number] - [place], [place] - [address] [phone] [id number] Miscellaneous Notes* Telephone Encounter - Chacorta Ansari MA - 02/16/2022 2:20 PM EDT [facility] called to get a refill on her epidiolex. Requested Prescriptions Pending Prescriptions Disp Refills cannabidioL (Epidiolex) 100 mg/mL Soln 250 mL 11 Si.5 mL (350 mg total) by G-tube route 2 (two) times a day . [id number] - [place], [place] - [address] [phone] documented in this [id number] Nurse Note* Heather Cason RN - 12/22/2021 9:45 AM EDT PT Given discharge paperwork and reviewed per MD and nurse. Furniture Servicer available.Diet and restrictions reviewed as well. Venous access removed no complications noted. Ok to d/c Anesthesia and procedural MD. Fall Prevention: Pt declines assistance from staff for dressing, family at bedside to assist. Call light in reach. Wheelchair available upon discharge. [facility] Nurse Surgical operation note* Heather Cason RN - 12/22/2021 9:45 AM EDT PT Given discharge paperwork and reviewed per MD and nurse. Furniture Servicer available.Diet and restrictions reviewed as well. Venous access removed no complications noted. Ok to d/c Anesthesia and procedural . Fall Prevention: Pt declines assistance from staff for dressing, family at bedside to assist. Call light in reach. Wheelchair [facility] upon discharge. [facility] History and physical note* Alex Velasco MD - 12/22/2021 8:07 AM EDT ENDOSCOPIC PREPROCEDURE HISTORY AND PHYSICAL HISTORY OF PRESENT ILLNESS: Claudine Joseph is a 31 y.o. female seen in the preoprocedure area at [facility]. The indication for endoscopic evaluation includes: Pre-Op Diagnosis Codes: * PEG tube malfunction [K94.23]. PAST MEDICAL HISTORY: Past Medical History: Diagnosis Date Brain anoxia Cortical visual impairment Difficult intubation Essential hypertension, benign GERD (gastroesophageal reflux disease) Lactose intolerance MRSA infection 2016 bilat lungs YAMILEX (obstructive sleep apnea) Renal disease Seizure SURGICAL HISTORY: Past Surgical History: Procedure Laterality Date EGD W/ PLACEMENT OR REPLACEMENT PEG N/A 11/17/2021 Laterality: N/A; Surgeon: Alex Velasco MD; Location: [facility] BACK SURGERY CHOLECYSTECTOMY MEDICATIONS: Current Outpatient Medications Medication Instructions acetaminophen (TYLENOL) 500 mg, Oral, EVERY 4 HOURS acetaminophen (TYLENOL) 200 mg, Rectal, EVERY 4 HOURS NEEDED Alum & Mag Hydroxide-Simeth (ALUM/MAG HYDROX.-SIMETHICONE) Suspension 30 mL, Oral, EVERY 6 HOURS NEEDED baclofen 500 mcg/mL Solution 20 mL, Intrathecal, 647 micrograms per day diazepam (VALIUM) 2 mg, Oral, EVERY 6 HOURS NEEDED Fluticasone Furoate 27.5 MCG/SPRAY Suspension Nasal, NEEDED lamoTRIgine (LAMICTAL) 250 mg, Oral, 2 TIMES DAILY levETIRAcetam (KEPPRA) 250 mg, Oral, 2 TIMES DAILY loratadine (CLARITIN) 10 mg, Oral, DAILY medroxyPROGESTERone Acetate (DEPO-PROVERA IM) Intramuscular meropenem (MERREM) 0.5 g metoclopramide (REGLAN) 5 mg, DAILY Omeprazole [address] tablet Oral, DAILY polyethylene glycol (MIRALAX) 17 g, Oral, DAILY sulfamethoxazole-trimethoprim 200-40 MG/5ML oral suspension 10 mL, EVERY 12 HOURS VITAMIN D, CHOLECALCIFEROL, PO Oral, DAILY Current Facility-Administered Medications: diphenhydrAMINE (BENADRYL) injection 12.5 mg, 12.5 mg, Intravenous, Q30 MIN PRN, Devin Power MD, PhD hydrALAZINE (APRESOLINE) injection 5 mg, 5 mg, Intravenous, Q15 MIN PRN, Devin Power MD, PhD HYDROmorphone (DILAUDID) injection 0.2 mg, 0.2 mg, Intravenous, Q5 MIN PRN OR HYDROmorphone (DILAUDID) injection 0.5 mg, 0.5 mg, Intravenous, Q5 MIN PRN, Devin Power MD, PhD labetalol (NORMODYNE) injection 5 mg, 5 mg, Intravenous, Q15 MIN PRN, Devin Power MD, PhD lactated ringers IV solution, , Intravenous, Continuous, Alex Velasco MD lidocaine 1% buffered in sodium bicarbonate 1-8.4 % injection SOSY 1 mL, 1 mL, Intradermal, PRN, Alex Velasco MD ondansetron 4mg/2ml (ZOFRAN) injection 4 mg, 4 mg, Intravenous, Once PRN, Devin Power MD, PhD promethazine (PHENERGAN) injection 6.25 mg, 6.25 mg, Intravenous, Q1H PRN, Devin Power MD, PhD ALLERGIES: Allergies Allergen Reactions *Seasonal Augmentin [Amoxicillin-Pot Clavulanate] Penicillins Blisters FOCUSED REVIEW OF SYSTEMS: Negative for nausea, vomiting, abdominal pain and diarrhea VITAL SIGNS: Vitals: 12/22/21 0803 Pulse: 99 Height: 1.372 m (4' 6) PREPROCEDURE PHYSICAL EXAM: AIRWAY: normal, Mallampati: Class I (complete visualization of the soft palate) HEART: Regular and No murmur PULMONARY: Lungs clear to auscultation bilaterally ABDOMEN: Soft, nontender, nondistended ASSESSMENT: Claudine Joseph is a 31 y.o. female is ready for the planned procedure. ASA Class: ASA 3 - Patient with moderate systemic disease with functional limitations PLAN: Will plan to proceed with Procedure(s): EGD with Anesthesiology using Monitored Anesthesia Care. Alex Velasco MD [facility] Work Phone: [phone] 640-397304-25-2022 History and physical note* Alex Velasco MD - 12/22/2021 8:07 AM EDT ENDOSCOPIC PREPROCEDURE HISTORY AND PHYSICAL HISTORY OF PRESENT ILLNESS: Claudine Joseph is a 31 y.o. female seen in the preoprocedure area at [facility]. The indication for endoscopic evaluation includes: Pre-Op Diagnosis Codes: * PEG tube malfunction [K94.23]. PAST MEDICAL HISTORY: Past Medical History: Diagnosis Date Brain anoxia Cortical visual impairment Difficult intubation Essential hypertension, benign GERD (gastroesophageal reflux disease) Lactose intolerance MRSA infection 2016 bilat lungs YAMILEX (obstructive sleep apnea) Renal disease Seizure SURGICAL HISTORY: Past Surgical History: Procedure Laterality Date EGD W/ PLACEMENT OR REPLACEMENT PEG N/A 11/17/2021 Laterality: N/A; Surgeon: Alex Velasco MD; Location: [facility] BACK SURGERY CHOLECYSTECTOMY MEDICATIONS: Current Outpatient Medications Medication Instructions acetaminophen (TYLENOL) 500 mg, Oral, EVERY 4 HOURS acetaminophen (TYLENOL) 200 mg, Rectal, EVERY 4 HOURS NEEDED Alum & Mag Hydroxide-Simeth (ALUM/MAG HYDROX.-SIMETHICONE) Suspension 30 mL, Oral, EVERY 6 HOURS NEEDED baclofen 500 mcg/mL Solution 20 mL, Intrathecal, 647 micrograms per day diazepam (VALIUM) 2 mg, Oral, EVERY 6 HOURS NEEDED Fluticasone Furoate 27.5 MCG/SPRAY Suspension Nasal, NEEDED lamoTRIgine (LAMICTAL) 250 mg, Oral, 2 TIMES DAILY levETIRAcetam (KEPPRA) 250 mg, Oral, 2 TIMES DAILY loratadine (CLARITIN) 10 mg, Oral, DAILY medroxyPROGESTERone Acetate (DEPO-PROVERA IM) Intramuscular meropenem (MERREM) 0.5 g metoclopramide (REGLAN) 5 mg, DAILY Omeprazole [address] tablet Oral, DAILY polyethylene glycol (MIRALAX) 17 g, Oral, DAILY sulfamethoxazole-trimethoprim 200-40 MG/5ML oral suspension 10 mL, EVERY 12 HOURS VITAMIN D, CHOLECALCIFEROL, PO Oral, DAILY Current Facility-Administered Medications: diphenhydrAMINE (BENADRYL) injection 12.5 mg, 12.5 mg, Intravenous, Q30 MIN PRN, Devin Power MD, PhD hydrALAZINE (APRESOLINE) injection 5 mg, 5 mg, Intravenous, Q15 MIN PRN, Devin Power MD, PhD HYDROmorphone (DILAUDID) injection 0.2 mg, 0.2 mg, Intravenous, Q5 MIN PRN OR HYDROmorphone (DILAUDID) injection 0.5 mg, 0.5 mg, Intravenous, Q5 MIN PRN, Devin Power MD, PhD labetalol (NORMODYNE) injection 5 mg, 5 mg, Intravenous, Q15 MIN PRN, Devin Power MD, PhD lactated ringers IV solution, , Intravenous, Continuous, Alex Velasco MD lidocaine 1% buffered in sodium bicarbonate 1-8.4 % injection SOSY 1 mL, 1 mL, Intradermal, PRN, Alex Velasco MD ondansetron 4mg/2ml (ZOFRAN) injection 4 mg, 4 mg, Intravenous, Once PRN, Devin Power MD, PhD promethazine (PHENERGAN) injection 6.25 mg, 6.25 mg, Intravenous, Q1H PRN, Devin Power MD, PhD ALLERGIES: Allergies Allergen Reactions *Seasonal Augmentin [Amoxicillin-Pot Clavulanate] Penicillins Blisters FOCUSED REVIEW OF SYSTEMS: Negative for nausea, vomiting, abdominal pain and diarrhea VITAL SIGNS: Vitals: 12/22/21 0803 Pulse: 99 Height: 1.372 m (4' 6) PREPROCEDURE PHYSICAL EXAM: AIRWAY: normal, Mallampati: Class I (complete visualization of the soft palate) HEART: Regular and No murmur PULMONARY: Lungs clear to auscultation bilaterally ABDOMEN: Soft, nontender, nondistended ASSESSMENT: Caludine Joseph is a 31 y.o. female is ready for the planned procedure. ASA Class: ASA 3 - Patient with moderate systemic disease with functional limitations PLAN: Will plan to proceed with Procedure(s): EGD with Anesthesiology using Monitored Anesthesia Care. Alex Velasco MD [facility] Telephone encounter Note* Telephone Encounter - Brandi Dominguez MA - 11/27/2021 1:30 PM EDT PT mother left VM on Rx line requesting refill. Orders as attached. Requested Prescriptions Pending Prescriptions Disp Refills diazePAM (Valtoco) 15 mg/2 spray (7.5/0.1mL x 2) Novi 8 each 5 Sig: Instill 1 spray into each nostril as needed (Seizures, may repeat times 1 in 4 hours) . diazePAM (VALIUM) 2 MG tablet 30 tablet 0 Si (three) tablets (6 mg total) by Per G Tube route daily as needed For seizures . [id number] Miscellaneous Notes* Telephone Encounter - Brandi Dominguez MA - 11/27/2021 1:30 PM EDT PT mother left VM on Rx line requesting refill. Orders as attached. Requested Prescriptions Pending Prescriptions Disp Refills diazePAM (Valtoco) 15 mg/2 spray (7.5/0.1mL x 2) Novi 8 each 5 Sig: Instill 1 spray into each nostril as needed (Seizures, may repeat times 1 in 4 hours) . diazePAM (VALIUM) 2 MG tablet 30 tablet 0 Si (three) tablets (6 mg total) by Per G Tube route daily as needed For seizures . documented in this [id number] Nurse Surgical operation note* Leeanne Gil RN - 11/17/2021 3:[address] Velasco at the bedside reviewing results to pt's mom, discharge instructions reviewed to pt's mom with no questions at this time. [facility] Nurse Note* Leeanne Gil RN - 11/17/2021 3:[address] Velasco at the bedside reviewing results to pt's mom, discharge instructions reviewed to pt's mom with no questions at this time. [facility]22 History and physical note* Alex Velasco MD - 11/17/2021 1:39 PM EDT ENDOSCOPIC PREPROCEDURE HISTORY AND PHYSICAL HISTORY OF PRESENT ILLNESS: Claudine Joseph is a 31 y.o. female seen in the preoprocedure area at [facility]. The indication for endoscopic evaluation includes: Pre-Op Diagnosis Codes: * PEG tube malfunction [K94.23] * Presence of externally removable percutaneous endoscopic gastrostomy (PEG) tube [Z93.1]. PAST MEDICAL HISTORY: Past Medical History: Diagnosis Date Brain anoxia Cortical visual impairment Difficult intubation Essential hypertension, benign GERD (gastroesophageal reflux disease) Lactose intolerance MRSA infection 2016 bilat lungs YAMILEX (obstructive sleep apnea) Renal disease Seizure SURGICAL HISTORY: Past Surgical History: Procedure Laterality Date BACK SURGERY MEDICATIONS: Current Outpatient Medications Medication Instructions acetaminophen (TYLENOL) 500 mg, Oral, EVERY 4 HOURS acetaminophen (TYLENOL) 200 mg, Rectal, EVERY 4 HOURS NEEDED Alum & Mag Hydroxide-Simeth (ALUM/MAG HYDROX.-SIMETHICONE) Suspension 30 mL, Oral, EVERY 6 HOURS NEEDED baclofen 500 mcg/mL Solution 20 mL, Intrathecal, 647 micrograms per day diazepam (VALIUM) 2 mg, Oral, EVERY 6 HOURS NEEDED Fluticasone Furoate (FLONASE SENSIMIST) 27.5 MCG/SPRAY Suspension Nasal, NEEDED lamoTRIgine (LAMICTAL) 250 mg, Oral, 2 TIMES DAILY levETIRAcetam (KEPPRA) 250 mg, Oral, 2 TIMES DAILY loratadine (CLARITIN) 10 mg, Oral, DAILY meropenem (MERREM) 0.5 g, Intravenous metoclopramide (REGLAN) 5 mg, Oral, DAILY Omeprazole [address] tablet Oral, DAILY polyethylene glycol (MIRALAX) 17 g, Oral, DAILY VITAMIN D, CHOLECALCIFEROL, PO Oral, DAILY Current Facility-Administered Medications: ciprofloxacin (CIPRO) 400 mg in dextrose 5% premix IVPB, 400 mg, Intravenous, laborer carpentry dock to Procedure,Alex Velasco MD ALLERGIES: Allergies Allergen Reactions Augmentin [Amoxicillin-Pot Clavulanate] Penicillins Blisters FOCUSED REVIEW OF SYSTEMS: Negative for nausea, vomiting, abdominal pain and diarrhea VITAL SIGNS: There were no vitals filed for this visit. PREPROCEDURE PHYSICAL EXAM: AIRWAY: normal, Mallampati: Class II (complete visualization of the uvula) HEART: Regular and No murmur PULMONARY: Lungs clear to auscultation bilaterally ABDOMEN: PEG tube in place ASSESSMENT: Claudine Joseph is a 31 y.o. female is ready for the planned procedure. ASA Class: ASA 3 - Patient with moderate systemic disease with functional limitations PLAN: Will plan to proceed with Procedure(s): EGD W/ PLACEMENT OR REPLACEMENT PEG using General Anesthesia. Alex Velasco MD [facility] Work Phone: [phone]) 343-600003-21-2022 History and physical note* Alex Velasco MD - 11/17/2021 1:39 PM EDT ENDOSCOPIC PREPROCEDURE HISTORY AND PHYSICAL HISTORY OF PRESENT ILLNESS: Claudine Joseph is a 31 y.o. female seen in the preoprocedure area at [facility]. The indication for endoscopic evaluation includes: Pre-Op Diagnosis Codes: * PEG tube malfunction [K94.23] * Presence of externally removable percutaneous endoscopic gastrostomy (PEG) tube [Z93.1]. PAST MEDICAL HISTORY: Past Medical History: Diagnosis Date Brain anoxia Cortical visual impairment Difficult intubation Essential hypertension, benign GERD (gastroesophageal reflux disease) Lactose intolerance MRSA infection 2016 bilat lungs YAMILEX (obstructive sleep apnea) Renal disease Seizure SURGICAL HISTORY: Past Surgical History: Procedure Laterality Date BACK SURGERY MEDICATIONS: Current Outpatient Medications Medication Instructions acetaminophen (TYLENOL) 500 mg, Oral, EVERY 4 HOURS acetaminophen (TYLENOL) 200 mg, Rectal, EVERY 4 HOURS NEEDED Alum & Mag Hydroxide-Simeth (ALUM/MAG HYDROX.-SIMETHICONE) Suspension 30 mL, Oral, EVERY 6 HOURS NEEDED baclofen 500 mcg/mL Solution 20 mL, Intrathecal, 647 micrograms per day diazepam (VALIUM) 2 mg, Oral, EVERY 6 HOURS NEEDED Fluticasone Furoate (FLONASE SENSIMIST) 27.5 MCG/SPRAY Suspension Nasal, NEEDED lamoTRIgine (LAMICTAL) 250 mg, Oral, 2 TIMES DAILY levETIRAcetam (KEPPRA) 250 mg, Oral, 2 TIMES DAILY loratadine (CLARITIN) 10 mg, Oral, DAILY meropenem (MERREM) 0.5 g, Intravenous metoclopramide (REGLAN) 5 mg, Oral, DAILY Omeprazole [address] tablet Oral, DAILY polyethylene glycol (MIRALAX) 17 g, Oral, DAILY VITAMIN D, CHOLECALCIFEROL, PO Oral, DAILY Current Facility-Administered Medications: ciprofloxacin (CIPRO) 400 mg in dextrose 5% premix IVPB, 400 mg, Intravenous, laborer carpentry dock to Procedure,Alex Velasco MD ALLERGIES: Allergies Allergen Reactions Augmentin [Amoxicillin-Pot Clavulanate] Penicillins Blisters FOCUSED REVIEW OF SYSTEMS: Negative for nausea, vomiting, abdominal pain and diarrhea VITAL SIGNS: There were no vitals filed for this visit. PREPROCEDURE PHYSICAL EXAM: AIRWAY: normal, Mallampati: Class II (complete visualization of the uvula) HEART: Regular and No murmur PULMONARY: Lungs clear to auscultation bilaterally ABDOMEN: PEG tube in place ASSESSMENT: Claudine Joseph is a 31 y.o. female is ready for the planned procedure. ASA Class: ASA 3 - Patient with moderate systemic disease with functional limitations PLAN: Will plan to proceed with Procedure(s): EGD W/ PLACEMENT OR REPLACEMENT PEG using General Anesthesia. Alex Velasco MD [facility] Telephone encounter Note* Telephone Encounter - Yany Wright CNP - 10/31/2021 10:14 AM EST Already provided prescription 14 days ago. [id number] Miscellaneous Notes* Telephone Encounter - Yany Wright CNP - 10/31/2021 10:14 AM EST Already provided prescription 14 days ago. documented in this [id number] Miscellaneous Notes* Addendum Note - Falguni Curry RN - 08/27/2021 7:18 AM EST Addended by: FALGUNI CURRY on: 08/27/2021 07:18 AM Modules accepted: Orders * Addendum Note - Falguni Curry RN - 08/26/2021 11:30 AM EST Addended by: FALGUNI CURRY on: 08/26/2021 11:30 AM Modules accepted: Orders * Telephone Encounter - Falguni Curry RN - 08/19/2021 9:02 AM EST Called and spoke with patients' mother and they haven't heard anything about refills at home. AD 08/25. She would love to have refills in the home but haven't heard anything in a long time. Email sent to [facility] for update, Peg plans on being here on 08/21 for fill. * Telephone Encounter - Falguni Curry RN - 05/09/2021 12:50 PM EDT Received a voicemail from Jane at [facility] wanting to clarify if the patient will be a home fill or clinic fill. They also need the prescription and insurance information. Call back is [phone]. Call placed to Jane and spoke with her. Everything has been uploaded into the system now, there are no needs at all from us. They received the prescription electronically on the . She will work on the home refill for patient. * Addendum Note - Ruma Godwin CNP - 05/09/2021 12:04 PM EDT Addended by: RUMA GODWIN on: 05/09/2021 12:04 PM Modules accepted: Orders * Addendum Note - Elroy Lopez RN - 05/09/2021 11:43 AM EDT Addended by: ELROY LOPEZ on: 05/09/2021 11:43 AM Modules accepted: Orders * Telephone Encounter - Elroy Lopez RN - 05/09/2021 11:41 AM EDT Received call from [facility]. They need patient's Baclofen order. It did not e-scribe. Prescription pended to print. * Telephone Encounter - Elroy Lopez RN - 05/07/2021 9:13 AM EDT Received call from Suzie MOTTA. She wants to know if patient's refills will be in clinic or at home. Call back: [phone] This is handled. * Telephone Encounter - Falguni Curry RN - 05/07/2021 8:42 AM EDT Clinical information faxed to [facility]EL[facility], aria received. * Telephone Encounter - Falguni Curry RN - 05/01/2021 10:36 AM EDT Plan for patient to be referred to [facility] for pump care in home. documented in this [id number] Miscellaneous Notes* Addendum Note - Falguni Curry RN - 08/26/2021 11:30 AM EST Addended by: FALGUNI CURRY on: 08/26/2021 11:30 AM Modules accepted: Orders * Telephone Encounter - Falguni Curry RN - 08/19/2021 9:02 AM EST Called and spoke with patients' mother and they haven't heard anything about refills at home. AD 08/25. She would love to have refills in the home but haven't heard anything in a long time. Email sent to [facility] for update, Peg plans on being here on 08/21 for fill. * Telephone Encounter - Falguni Curry RN - 05/09/2021 12:50 PM EDT Received a voicemail from Jane at [facility] wanting to clarify if the patient will be a home fill or clinic fill. They also need the prescription and insurance information. Call back is [phone]. Call placed to Jane and spoke with her. Everything has been uploaded into the system now, there are no needs at all from us. They received the prescription electronically on the . She will work on the home refill for patient. * Addendum Note - Ruma Godwin CNP - 05/09/2021 12:04 PM EDT Addended by: RUMA GODWIN on: 05/09/2021 12:04 PM Modules accepted: Orders * Addendum Note - Elroy Lopez RN - 05/09/2021 11:43 AM EDT Addended by: ELROY LOPEZ on: 05/09/2021 11:43 AM Modules accepted: Orders * Telephone Encounter - Elroy Lopez RN - 05/09/2021 11:41 AM EDT Received call from [facility]. They need patient's Baclofen order. It did not e-scribe. Prescription pended to print. * Telephone Encounter - Elroy Lopez RN - 05/07/2021 9:13 AM EDT [facility] She wants to know if patient's refills will be in clinic or at home. Call back: [phone] This is handled. * Telephone Encounter - Falguni Curry RN - 05/07/2021 8:42 AM EDT Clinical information faxed to [facility], confirmation received. * Telephone Encounter - Falguni Curry RN - 05/01/2021 10:36 AM EDT Plan for patient to be referred to [facility] for pump care in home. documented in this [id number] Instructions* Patient Instructions* Donna Brush, ROCKY - 08/21/2021 1:18 PM EST First Medication Brand: lioresal Concentration: 2000 mcg/mL Total Daily Dose: 649.8 mcg/day 1. Pump Programming: Simple Continuous 2. Pump Esto Refill: The injection site was prepped sterilely, landmarks were identified, and the pump was accessed with a coring needle. Approximately 4 ml (it programmer analyst stated 3.6 ml) cc of clear, colorless fluid was removed from the reservoir. The reservoir was then refilled with 40 ml of 2000 mcg/ml baclofen for intrathecal administration. No difficulties were noted, and the pressure was within acceptable limits. kit # 8566: concentration 2000 mcg/ml, volume 40 ml was used. 3. Programming Adjustments today: none. mraintined dose, refil only 4. ITB system Procedures today: pump computer interrogation, pump computer reprogramming and pump reservoir refill 5. Last reservoir refill date: 08/21/21 6. Pump Low Esto Alarm Date: 12/15/21 documented in this [id number] History of Present illness Narrative* Donna Brush CNP - 08/21/2021 1:17 PM EST [facility] Sp[facility]ity Clinic: Intrathecal Baclofen Therapy Progress Note 08/21/2021 CHIEF COMPLAINT Spasticity follow up from 04/2021 CONTEMOPORARY HISTORY Claudine presents to clinic with her mother Peg. spacticity remains unchanged. She states that thewound on her bottom continues to improve. At last visit, there was interest in pursuing in home refills. There was a call from [facility] shortly after this appt that mother declined their services; however today she states that this was not accurate information and she does want in home refills. Claudine used to get in home refills in the past with success. OTHER RELEVANT HISTORY [facility] Sclerosis Rochelle ROS - 08/21/21 1244 General Change in weight No Fever No Chills No Night Sweats No Cough No Shortness of Breath No Nausea / Vomiting No Neurologic Difficulty swallowing No Recent Falls No Poor sleep No Recent Seizures Yes She has a past medical history of Acute respiratory failure ([facility]), Allergic rhinitis, Anoxic brain damage ([facility]), Aspiration, chronic pulmonary, Bowel and bladder incontinence, Cerebral palsy ([facility]), Chronic kidney disease, Chronic osteomyelitis of pelvic region, right ([facility]) (2018), Chronic respiratory failure with hypoxia ([facility]), Constipation, Epilepsy ([facility]), GERD (gastroesophageal reflux disease),MRSA (methicillin resistant Staphylococcus aureus) (04/2016), Muscle spasticity, Nonverbal, PEG (percutaneous endoscopic gastrostomy) status ([facility]), Presence of intrathecal baclofen pump (1999), Restrictive lung disease due to kyphoscoliosis, Urine retention, and Wheelchair bound. She has a past surgical history that includes Peg Tube Insertion; Baclofen pump implantation; Salivary gland surgery; Back surgery (1999); Cholecystectomy; Pain Pump Revision (N/A, 07/27/2016); Laminectomy Decomp Thoracic Multi Level (N/A, 07/27/2016); and Incision And Drainage Lower Extremity (Right, 12/02/2018). She reports that she has never smoked. She has never used smokeless tobacco. She reports that she does not drink alcohol and does not use drugs. Social History Social History Narrative Not on file She She was adopted. Family history is unknown by patient. Allergies Allergen Reactions Levaquin [Levofloxacin] Rash, flushing with RUE arm swelling. Augmentin [Amoxicillin-Pot Clavulanate] Rash Per mother- tolerates Zosyn, unable to tolerate amoxil (blisters upper extremity) Lactose Intolerance [Lactase] Penicillins Other (See Comments) Blisters- amoxil Ragweed Unknown She has a current medication list which includes the following prescription(s): acetaminophen, baclofen, baclofen, epidiolex, cholecalciferol (vitamin d3), diazepam, valtoco, fluconazole, fluticasonepropionate, guaifenesin, ipratropium, lamotrigine, lamotrigine, levetiracetam, loratadine, medroxyprogesterone, montelukast, multivitamin/iron/folic acid, omeprazole, polyethylene glycol, promethazine, doxycycline hyclate, and meropenem. PHYSICAL EXAMINATION Vital Signs: Blood pressure 101/68, pulse (!) 128, height 4' 5, weight 38.6 kg (85 lb). General Appearance: in no apparent distress, well nourished, conversant, cooperative Eyes: Anicteric sclerae. Moist conjunctivae. No lid edema noted. HENT: Head atraumatic, normocephalic. Oropharynx clear. Moist mucous membranes. Neck/ Thyroid:trachea midline. Supple. No massess. No thyromegaly. Lungs: Normal respiratory effort. No intercostal retractions. No dyspnea during conversation. Abdomen: soft, non-distended Extremities: no clubbing, cyanosis, pedal edema, ulcer nor wound noted. Skin: warm, dry, no rash, no ecchymoses, no petechiae noted Pysch: non verbal NEUROLOGICAL EXAMINATION Mental Status is non verbal Modified Estefani Score: EE EF Hip add KE KF DF PF Right 2* 1 0 0 Left 1* 0 0 0 * limited ROM contractions at wrists, elbows, fingers, and knees. Wheelchair bound ITB TELEMETRY and OTHER DATA I have independently reviewed the ITB pump system telemetry. ASSESSMENT Medically refractory, severe spasticity secondary to Spasticity Etiology: CP managed with intrathecal baclofen therapy. Based on today s history, physical examination and review of ITB telemetry, I feel her severe spasticity is under adequate control. INTRATHECAL BACLOFEN SYSTEM INFORMATION FOR Claudine Joseph Severe Spasticity due to: CP Implanted: by Dr. Roxy RENE date: 21mon03/2023 Synchromed I IPump Size: 40 mL Willard Location: 11 Catheter Tip Placement: PLAN REGARDING INTRATHECAL BACLOFEN THERAPY First Medication Brand: lioresal Concentration: 2000 mcg/mL Total Daily Dose: 649.8 mcg/day 1. Pump Programming: Simple Continuous 2. Pump Esto Refill: The injection site was prepped sterilely, landmarks were identified, and the pump was accessed with a coring needle. Approximately 4 ml (it programmer analyst stated 3.6 ml) cc of clear, colorless fluid was removed from the reservoir. The reservoir was then refilled with 40 ml of 2000 mcg/ml baclofen for intrathecal administration. No difficulties were noted, and the pressure was within acceptable limits. kit # 8566: concentration 2000 mcg/ml, volume 40 ml was used. 3. Programming Adjustments today: none. mraintined dose, refil only 4. ITB system Procedures today: pump computer interrogation, pump computer reprogramming and pump reservoir refill 5. Last reservoir refill date: 08/21/21 6. Pump Low Esto Alarm Date: 12/15/21 7. Claudine Joseph and/or her caregivers have verbal consents to all of the ITB system adjustments and procedures performed today PLAN REGARDING FOLLOW UP 1. We will schedule follow up a week before her alarm date, which is 12/15/2021 tentatively as a holding spot but would like to pursue a referral to [facility] for in home referrals. 2. I strongly recommend that she keep an up-to-date emergency bottle of oral baclofen with her atall times to take for withdrawal symptoms. 3. I also recommend that she keep her [employer] identification card with our clinic contact information at all times. 4. The [facility] Spasticity Team can be reached for emergencies and after hours by calling the [facility] at [phone]. 5. Will work on getting the referral for [facility] PATIENT AND CARE PROVIDER EDUCATION You can learn more about spasticity and ITB therapy at the following website: [email or web address].[email or web address] If you have a smart phone then we recommend you download the free pump partner application as well. It is a resource for ITB education and tracking your personalized therapy. SYNCHROMED II ITB SYSTEM The intrathecal baclofen pump system is the way our treatment team gives baclofen directly into thespinal fluid. The system consists of a catheter (a small, flexible tube) and a pump. The pump -- a round metal disc, about one inch thick and three inches in diameter -- is surgically placed under the skin of the abdomen near the waistline. The pump stores and releases prescribed amounts of medicine through the cathete directly to the spinal fluid. With a programmable pump, a tiny motor moves themedication from the pump reservoir through the catheter. Using an external it programmer analyst, your treatment team can make adjustments in the dose, rate, and timing of the medication. Continuously delivers baclofen in small doses directly to the spinal fluid, increasing the therapeutic benefits and causing fewer and less severe side effects than the oral medication. Patients with a pump must return to their doctor's office for pump refills and medication adjustments, typically every 1-3 months. ITB SYSTEM MAINTENANCE AND REPAIR The catheter may kink, break or dislodge in up to 10% of cases and would require a surgery to revise it. The Synchromed II pump requires replacement for end of battery life within 7 years. This will require a surgery. The catheter is not required to be replaced, just the pump. INTRATHECAL BACLOFEN WITHDRAWAL Signs and symptoms of baclofen withdrawal often include diffuse body itching, increased stiffness and fever. I have reminded her to take 20mg of oral baclofen and contact our office if she has these symptoms. she may need to be seen in the emergency department. The baclofen withdrawal syndrome can progress to include confusion, sedation and even coma. In severe cases baclofen withdrawal can lead to kidney damage, seizures and possibly . A lumbar puncture with an injection of 50mcg intrathecal baclofen in the emergency department is often the best treatment to address severe balcofen withdrawal symptoms. INTRATHECAL BACLOFEN OVERDOSE Signs and symptoms of baclofen overdose often include sedation and confusion and most commonly occur recently following an ITB refill/program adjustment. I recommend Claudine Joseph contactour office prompts if these symptoms occur. The baclofen overdose syndrome can progress to include coma, seizures, respiratory and cardiac depression and possibly . I have reminded her to contact our office and go to the emergency room if she experiences these symptoms. A high volume lumbar puncture (removing 40cc of both CSF and intrathecal baclofen) in the emergency department is often thebest treatment for severe baclofen overdose symptoms. ITB SYSTEM INFECTION Infection of the pump system can lead to meningitis (severe brain infection) and can be possibly fatal. Signs and symptoms of pump infection can include redness, swelling, or pain around the pump or surgical scar on the back. Fever and a stiff neck are also common. I recommend that Claudine Joseph go to the Emergency Department if she has any of signs/symptoms of pump infection. MRI SCANNING Synchromed II ITB pumps are MRI compatible including 3T strength scanners. The pump stops pumping temporarily when the patient is moved near the MRI machine. The pump automatically restarts once the patient moves away from the MRI machine. We follow a clinic best practice of interrogating the pump following MRI scans to ensure the ITB pump has restarted. This can often be arranged to be done by a[employer] Conference And Event Organiser if scheduled during business hours. We recommend AGAINST any MRI scans scheduled outside of business hours. EDUCATION: HOT TUBs, STEAM ROOMS, SAUNAS AND TANNING BED We recommend patients avoid these, especially if over 102 degrees. Heating up your body causes the ITB pump to potential increase its flow rate, which could cause overdose/. EDUCATION: SCUBA DIVING We recommend that an ITB patient avoid depths below 33 feet (10 meters). Diving lower than this could permanently damage the pump. Also as you descend and the pressure around your body increases, pump flow can decrease. This could lead to baclofen withdrawal/. EDUCATION REGARDING DAYLIGHT SAVINGS TIME The clock inside the pump does not adjust for daylight savings time changes (spring forward and fall backwards). If you are on flex dosing or bolus dosing programming then your dosing will becomeshifted an hour, which may cause problems for the patient. The pump clock only corrects for daylight savings time after being interrogated by a it programmer analyst. The flex/bolus dosing patient should schedule a visit after a time change to reset their pump clocks. I spent 30 minutes face to face with the patient today. Over half the time was spent counseling regarding her spasticity as well as it's underlying medical condition, as well as her coordinating care.Thank you very much for allowing me to participate in this patient's care and please do not hesitate to contact me with questions or concerns. Sincerely, Donna Brush CNP Certified Nurse Practitioner [facility] Neurology- Multiple Sclerosis [address] [place] [address] [email or web address] documented in this [id number] Miscellaneous Notes* Telephone Encounter - Falguni Curry RN - 08/19/2021 9:02 AM EST Called and spoke with patients' mother and they haven't heard anything about refills at home. AD 08/25. She would love to have refills in the home but haven't heard anything in a long time. Email sent to [facility] for update, Peg plans on being here on 08/21 for fill. * Telephone Encounter - Falguni Curry RN - 05/09/2021 12:50 PM EDT Received a voicemail from Jane at [facility] wanting to clarify if the patient will be a home fill or clinic fill. They also need the prescription and insurance information. Call back is [phone]. Call placed to Jane and spoke with her. Everything has been uploaded into the system now, there are no needs at all from us. They received the prescription electronically on the . She will work on the home refill for patient. * Addendum Note - Ruma Godwin CNP - 05/09/2021 12:04 PM EDT Addended by: RUMA GODWIN on: 05/09/2021 12:04 PM Modules accepted: Orders * Addendum Note - Elroy Lopez RN - 05/09/2021 11:43 AM EDT Addended by: ELROY LOPEZ on: 05/09/2021 11:43 AM Modules accepted: Orders * Telephone Encounter - Elroy Lopez RN - 05/09/2021 11:41 AM EDT Received call from [facility]. They need patient's Baclofen order. It did not e-scribe. Prescription pended to print. * Telephone Encounter - Elroy Lopez RN - 05/07/2021 9:13 AM EDT Received call from [facility]. She wants to know if patient's refills will be in clinic or at home. Call back: [phone] This is handled. * Telephone Encounter - Falguni Curry RN - 05/07/2021 8:42 AM EDT Clinical information faxed to [facility], confirmation received. * Telephone Encounter - Falguni Curry RN - 05/01/2021 10:36 AM EDT Plan for patient to be referred to [facility] for pump care in home. documented in this [id number] History of Present illness Narrative* Amaris Dunne RN - 08/05/2021 2:26 PM EST Medicaid is requesting the number of seizures weekly/monthly for Jimbo ho. Per mom, pt will have one sz every morning which will be severe. Pt will have mild seizures later in the afternoon, but these are not daily. The afternoon events are mild and unpredictable in frequency. On average,pt will have around 14 events per week. Information faxed to [facility]. documented in this [id number] History of Present illness Narrative* Yany Wright CNP - 07/09/2021 3:28 PM EST error documented in this [id number] History of Present illness Narrative* Amaris Dunne RN - 07/08/2021 4:17 PM EST After making multiple calls to different providers/departments, with [facility] and [facility], to see who can help with repairing Que-Camejo button, I faxed referral form to [facility] for Gastroenterology. Fax confirmation received. Called [facility] to expedite request, as stated on form and spoke with Nicole. documented in this [id number] Instructions* Patient Instructions* Curtis Harrell DO - 06/20/2021 2:02 PM EDT Summary of Visit Recommedations: We will complete the documentation for your wheelchair required by your insurance company. Thank you for visiting the [facility] today. Please let us know if you have any additional questions or concerns. [facility] Main Line: [phone] documented in this [id number] History of Present illness Narrative* Curtis Harrell DO - 06/20/2021 12:32 PM EDT Images from the original note were not included. Mobility Clinic Note [facility] 06/20/2021 Patient Identification Claudine Joseph : 1990 Primary Care Physician: Colette Goode MD Referring Provider: Cynthia Chan CNP Subjective: The above patient is being seen for a consultation as requested as part of the comprehensive wheelchair clinic evaluation. Reason for Consultation/Chief Complaint: evaluate for manual wheelchair. Dear Cynthia Chan, Thank you for sending Claudine Joseph to our mobility clinic for evaluation today. As youknow, she is a 31 y.o. female that presents for evaluation for a new wheelchair. She has CP and spasticity. She has a baclofen pump to help manage the spasticity. She has been using a wheelchair for many years. Her current mobility device is a manual, tilt in space wheelchair from 2014. She has a history of a pressure wound over her coccyx. She is currently receiving treatment for this pressure wound. She is in custom molded seating which she does not fit in properly. She lives in an accessible home with family. Plan: Based on my evaluation today I am recommending a new, manual tilt in space wheelchair for improved independence with ALD's within the home. The patient is unable to use a cane or walker because she is non-ambulatory due to her CP. She willdo well with a tilt in space wheelchair with custom molded seating due to her trunk rotation and current pressure wound. I feel that the above recommended equipment is medically necessary based on my evaluation today. Curtis Harrell DO BRITTNEE [facility] Physical Medicine and Rehabilitation Ambulatory status: non-ambulatory Past Medical History: Diagnosis Date Acute respiratory failure (HCC) Due to MRSA pneumonia 04/2016; Allergic rhinitis Anoxic brain damage (HCC) Aspiration, chronic pulmonary Bowel and bladder incontinence Cerebral palsy (HCC) Chronic kidney disease Chronic osteomyelitis of pelvic region, right (HCC) 2019 required right ischial debridement, followed by Dr. Noland of plastics Chronic respiratory failure with hypoxia (HCC) 3 L NC, followed by Dr. Stephy Cisse and Dr. Amalia Terry Constipation Epilepsy ([facility]) followed at [facility] neurology clinic GERD (gastroesophageal reflux disease) occasional vomiting with gagging MRSA (methicillin resistant Staphylococcus aureus) 04/2016 Bilateral lungs Muscle spasticity medically refractory and has baclofen pump since 1999, followed at [facility] neuro baclofen pump clinic Nonverbal Answers yes with very long blinks per adoptive parent PEG (percutaneous endoscopic gastrostomy) status ([facility]) Presence of intrathecal baclofen pump [address] 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 Urine retention occasional occurrence that requires straight cath periodically Wheelchair bound Past Surgical History: Procedure Laterality Date BACK SURGERY 1999 Marrufo rods placed BACLOFEN PUMP IMPLANTATION X 3- last 2009 CHOLECYSTECTOMY INCISION AND DRAINAGE LOWER EXTREMITY Right 12/02/2018 Procedure: INCISION AND DRAINAGE WITH BONE BIOPSY OF RIGHT ISCHIUM; Surgeon: Rad Luque MD; Location: [facility] Main OR; Service: Orthopedic INSERTION PERCUTANEOUS ENDOSCOPIC GASTROSTOMY TUBE LAMINECTOMY DECOMP THORACIC MULTI LEVEL N/A 07/27/2016 Procedure: T1-2 THORACIC FUSION REVISION ; Surgeon: Kb Ramsey MD; Location: [facility] Main OR; Service: REVISION PAIN PUMP N/A 07/27/2016 Procedure: BACLOFEN PUMP REPLACEMENT ; Surgeon: Kb Ramsey MD; Location: [facility] Main OR; Service: SALIVARY GLAND SURGERY Family History Adopted: Yes Family history unknown: Yes Social History: Social History Substance and Sexual Activity Alcohol Use No Social History Tobacco Use Smoking Status Never Smoker Smokeless Tobacco Never Used Social History Substance and Sexual Activity Drug Use No Premorbid Functional Status: Mobility/Ambulation/Transfers: needs assistance with ADLs/transfers Current mobility device and age: power wheelchair from 2014 Home Environment is currently accessible for a mobility device. Support System and Family Circumstances (i.e., potential caregivers): family Allergies: Allergies Allergen Reactions Levaquin [Levofloxacin] Rash, flushing with RUE arm swelling. Augmentin [Amoxicillin-Pot Clavulanate] Rash Per mother- tolerates Zosyn, unable to tolerate amoxil (blisters upper extremity) Lactose Intolerance [Lactase] Penicillins Other (See Comments) Blisters- amoxil Ragweed Unknown Medications: Current Outpatient Medications Medication Sig Dispense Refill acetaminophen (TYLENOL) 325 MG tablet 650 mg by G-tube route every 6 (six) hours as needed for pain. baclofen (LIORESAL) 20 MG tablet baclofen 40,000 mcg/20mL (2,000 mcg/mL) Soln Simple continuous infusion ITB at daily dose of 649.8 mcg/day. . 40 mL 6 cannabidioL (Epidiolex) 100 mg/mL Soln Take 3.5 mL (350 mg total) by mouth 2 (two) times a day . 217 mL 5 cholecalciferol, vitamin D3, (VITAMIN D3) 2,000 unit cap 2,000 Units by G-tube route every morning. diazePAM (VALIUM) 2 MG tablet 3 (three) tablets (6 mg total) by Per G Tube route daily as needed For seizures . 30 tablet 0 diazePAM (Valtoco) 15 mg/2 spray (7.5/0.1mL x 2) Novi Instill 1 spray into each nostril as needed (Seizures, may repeat times 1 in 4 hours) . 8 each 5 doxycycline hyclate (VIBRAMYCIN) 100 MG capsule Take 100 mg by mouth 2 (two) times a day . fluconazole (DIFLUCAN) 150 MG tablet take 1 tablet by mouth once daily for 3 days if needed fluticasone propionate (FLONASE) 50 mcg/actuation nasal spray Instill 1 (one) spray into each nostril daily as needed for rhinitis . 16 g 11 guaiFENesin (ROBITUSSIN) 100 mg/5 mL syrup 200 mg by G-tube route 3 (three) times a day as needed for cough . ipratropium (ATROVENT) 0.02 % nebulizer solution inhale contents of 1 vial in nebulizer twice a dayIF CONGESTED OR WHEEZING OR LABORED CAN TAKE UP TO FOUR TIMES DAILY . 300 mL 11 lamoTRIgine (LAMICTAL) 100 MG tablet 1 (one) tablet (100 mg total) by Per G Tube route 2 (two) times a day Take with 150mg tablet . 60 tablet 11 lamoTRIgine (LAMICTAL) 150 MG tablet 1 (one) tablet (150 mg total) by Per G Tube route 2 (two) times a day Take with 100mg tablet . 60 tablet 11 levETIRAcetam (KEPPRA) 100 mg/mL solution Take 10 mL (1,000 mg total) by mouth 2 (two) times a day . 600 mL 11 loratadine (CLARITIN) 10 mg tablet 10 mg by G-tube route every morning . medroxyPROGESTERone (DEPO-PROVERA) 150 mg/mL Syrg INJECT 1ML INTRAMUSCULARLY EVERY 10 TO 13 WEEKS meropenem (MERREM) 50 mg/ml injection Infuse 0.5 g into a venous catheter . montelukast (SINGULAIR) 10 mg tablet 10 mg by Per G Tube route daily . multivitamin/iron/folic acid (CENTRUM ORAL) 10 mL by G-tube route every morning . omeprazole (PRILOSEC) 40 MG capsule 40 mg by G-tube route every morning . polyethylene glycol (MIRALAX) 17 gram powder 17 g by Per G Tube route every morning . promethazine (PHENERGAN) 12.5 MG suppository Insert 12.5 mg into the rectum every 6 (six) hours as needed for nausea. No current facility-administered medications for this visit. Review of Systems: Unable to perform due to patient status Objective: Physical Exam: Height and Weight: see therapist note; General Appearance: Alert, well developed, no distress, appears stated age Psychiatric: Lymphatic: Mood and affect appropriate for diagnosis, no anxiety or agitation noted No enlarged lymph nodes noted in neck Neck: Supple and symmetrical, decreased range of motion; no tenderness to palpation; no scars present; no muscle atrophy noted Back: asymmetric, no tenderness to palpation Respiratory: Respirations unlabored, no cough or wheeze noted Skin: Warm, dry to the touch, without erythema or rash in bilateral upper or lower limbs Cardiovascular: No lower limb peripheral edema Neurologic: MSK: MSR 3+ at bilateral patella and Achilles, unable to assess sensation to light touch; not oriented to person, place and year; coordination unable to be tested with finger tapping, spasticity noted in bilateral upper limbs, minimal spasticity in legs Muscle strength: unable to assess ; non-ambulatory; no subluxation with bilateral shoulder ROM; bilateral hips stable tight but without laxity on ROM testing; no tenderness to palpation bilateral shoulders or elbows; no tenderness to palpation in bilateral knees I reviewed her lab results and [facility] including ED[facility] from February, wound care note from February, [place] clinic note from December. Assessment: 1. Cerebral palsy, unspecified type (HCC) Ambulatory Ref to [facility] (PT/OT/ST) 2. Stage II pressure ulcer of right buttock ([facility]) Ambulatory Ref to [facility] (PT/OT/ST) * Sisi Wills, PT - 06/20/2021 12:15 PM EDT OT/PT Wheelchair and Seating Clinic Evaluation Name: Claudine Joseph Address: [address] [place] [id number] Date of : 1990 Date of Initial Evaluation: 06/20/2021 Referring Physician: Cynthia Chan CNP Wheelchair Clinic Physician: Sharri Funding: Medicaid Vendor: [facility] [employer] MEDICAL HISTORY: Height: 53 inches Weight: 85lbs Diagnosis: Encounter Diagnoses Name Primary? 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 Noland of plastics Chronic respiratory failure with hypoxia ([facility]) 3 L NC, followed by Dr. Stephy Cisse and Dr. Amalia Terry Constipation Epilepsy ([facility]) followed at [facility] neurology clinic GERD (gastroesophageal reflux disease) occasional vomiting with gagging MRSA (methicillin resistant Staphylococcus aureus) 04/2016 Bilateral lungs Muscle spasticity medically refractory and has baclofen pump since 1999, followed at [facility] neuro baclofen pump clinic Nonverbal Answers yes with very long blinks per adoptive parent PEG (percutaneous endoscopic gastrostomy) status ([facility]) Presence of intrathecal baclofen pump [address] 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 Urine retention occasional occurrence that requires straight cath periodically Wheelchair bound Past Surgical History: Past Surgical History: Procedure Laterality Date BACK SURGERY 1999 Marrufo rods placed BACLOFEN PUMP IMPLANTATION X 3- last 2009 CHOLECYSTECTOMY INCISION AND DRAINAGE LOWER EXTREMITY Right 12/02/2018 Procedure: INCISION AND DRAINAGE WITH BONE BIOPSY OF RIGHT ISCHIUM; Surgeon: Rad Luque MD; Location: [facility] Main OR; Service: Orthopedic INSERTION PERCUTANEOUS ENDOSCOPIC GASTROSTOMY TUBE LAMINECTOMY DECOMP THORACIC MULTI LEVEL N/A 07/27/2016 Procedure: T1-2 THORACIC FUSION REVISION ; Surgeon: Kb Ramsey MD; Location: [facility] Main OR; Service: REVISION PAIN PUMP N/A 07/27/2016 Procedure: BACLOFEN PUMP REPLACEMENT ; Surgeon: Kb Ramsey MD; Location: [facility] Main OR; Service: SALIVARY GLAND SURGERY Planned Surgeries: may need to change out tube feed Current Symptoms that relate to wheelchair needs: Loves current wheelchair, has an open wound in her bottom, rotated a little bit with her spine, wants more pressure on the thighs, no headrest, Cognitive Status: Abnormal- MRDD Vision: Blind Hearing:intact Problems with current Seating/Wheelchair: wound on bottom BACKGROUND INFORMATION: Claudine Joseph is a 31 y.o. year old female with a diagnosis of Encounter Diagnoses Name Primary? 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 She describes her health as fair. Her past medical history is significant forcerebral Palsy and seizures. History of falls: none She was referred to this clinic for a new manual wheelchair. SUBJECTIVE INFORMATION: Current Equipment: The patient currently owns the following durable medical equipment, manual wheelchair, shower bench and toilet chair. Home Environment: The patient resides in a house. She owns the home. The entrance to the home is accessible to her wheelchair ramp. The family reports that the home is accessible. The patient lives with family. Transportation: Claudine Joseph is typically transported by means of van. The patient is transported in her wheelchair. ADL Status: Eating:Unable tube feeding Bathing/Dressing: Unable dependent Toileting: Unable dependent Instrumental Activities of Daily Living: Needs Assistance Transfers: dependent Ambulation: does not ambulate Time spent in wheelchair: 12-16 hours Length of need: indefinite OBJECTIVE INFORMATION: Presentation: The patient presented to the clinic in her wheelchair, her custom molded wheelchair. . Communication: Claudine Joseph is unable to communicate. Skin Integrity: compromised in the following at the following areas coccyx. Sensation: compromised in the following at the following areas lower extremity. Cardiorespiratory Status: intact. Head and Neck Positioning: WFL Trunk Positioning: rotated to the left, flexed, windswept Right Upper Extremity Function : elbow flexed, wrist flexed, no finger movement, shoulder is internally rotated Left Upper Extremity Function : some elbow contracture, increased wrist contracture, poor finger movement, internally rotated shoulder Right Lower Extremity Function : some knee flexion contracture, normal ankle movement Left Lower Extremity Function : increased spasticity, increased knee flexion concture. Dominant Hand: left Pelvis: Alignment: windswept to the right, rotated inominate on the left, poor mobility, fixed spine Mobility Function Current Wheelchair Features: Claudine Joseph's present wheelchair is a tilt in space. Herpresent cushion is a custom. Her present back is a custom. The wheelchair has the following other features tilt. The wheelchair is 6 years old. Current Seated Posture: Claudine Joseph was examined in her wheelchair. Posture was characterized by spinal curvature and spinal rotation that can not be accommodated by off the shelf the seating. Postural Control/Balance: Sitting balance was observed to be unable. Standing balance was unable. Pain: Increased pain behaviors with seating Spasticity: increased spasticity in all 4 limbs Equipment Trials: The need for additional postrual support was identified as follows: custom moldedseating. The patient trialed the following equipment, tilt in space wheelchair, and was deemed safein the equipment. ASSESSMENT: Patient has paralysis or severe weakness in the arms: Yes Patient has paralysis or severe weakness in the legs: Yes Patient can ambulate independently within the home without assistance: No Patient can propel a standard weight manual wheelchair: No Patient can propel a lightweight manual wheelchair: No Patient can propel an ultralight manual wheelchair: caregiver driven chair Patient can operate a POV within the home: N/A Patient can use a group 2 power wheelchair within the home: NA Patient can operate a power wheelchair within the home: N/A Is the recommended equipment the least costly alternative: Yes Additional Comments: Patient is unable to ambulate or sit up on her own. A caregiver driven wheelchair with tilt is the most appropriate assistive device for this patient at this time Claudine Joseph is dependent on the use of a wheelchair for all of her in home ADLs. Their current equipment can no longer meet their needs. Today's evaluation has determined that custom isthe most appropriate seating system and is the most reasonable and cost effective option to meet her needs. 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 The following criteria was considered in the determination: Claudine Joseph's diagnosis of Encounter Diagnoses Name Primary? 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 Specifically, Claudine Joseph is unable to ambulate. Claudine Joseph does not have cognitive or sensory deficits that limits her to safely participate in her daily activities. Claudine Joseph demonstrates the ability and willingness to safely use the mobility assistive device. Claudine Joseph's mobility deficit can not be sufficiently resolved with the use of a cane or walker because she us completely dependent for all movement. . Claudine Joseph's home environment supports the use of a manual wheelchair. Claudine Joseph has sufficient function and abilities to use the recommended manual wheelchair. Claudine Joseph has sufficient stability and upper extremity function to use the recommended manual wheelchair. The following medical equipment is deemed medically necessary for the treatment of her disability. Any addendums made were made to further justify components and wheelchair accessories. Justifications: Mobility Base: Tilt in space manual wheelchair Justification: Patient is unable to ambulate because she is dependent for all mobility. Patient is unable to perform an adequate pressure relief maneuver and requires tilt in space on her caregiver manual wheelchair Seat Back: custom molded seat Justification: Patient has a rotational fixed scoliosis that can not be accommodated by off the shelf seating Seat Cushion: custom Justification: Patient has a rotational windswept pelvic deformity that can not be fixed by off theshelf seating Accessories: TBD Justification: TBD Goals and Objectives: 1. Patient will be able to be moved throughout her environment with her wheelchair 2. Patient's caregiver will be chemo to do pressure relief in her chair Summary Statement: Patient is a pleasant 31 year old girl with severe cerebral palsy and fixed scoliosis that requires a caregiver driven wheelchair and custom molded seating Recommendations: Upon funding approval and receipt of the recommended items Claudine Joseph will not be scheduled for a therapy functional reassessment to ensure that the equipment meets her needs. Thank you, Therapist s Signature: Date: Therapist s Name: Sisi Wills, PT, DPT, WCS, OnCS License #: State License, [id number] Physician: I have read and concur with the above assessment. Face to face date: Physician Signature: Date: Physician Name: . UPIN #: By Vendor: I attest that the Licensed/ Certified Medical Practitioners that have done this evaluation are not employed or compensated in any way by our company. Company Name: Signature: Date: documented in this [id number] Instructions* Patient Instructions* Yany Wright, DIRECTOR OF GLOBAL SALES - 06/18/2021 1:52 PM EDT Call or MyChart with questions, concerns or any seizure activity. Increase Epidiolex to 3.5 ml twice a day. I sent the prescription to your pharmacy. I sent referral to Pediatric Gastroenterology to evaluate Que-Camejo button. If you do not receive a call from their office call our office and we will call. If worsening symptoms with Que-Camejo button goto ED for evaluation. I sent Valium prescription to your pharmacy. documented in this [id number] History of Present illness Narrative* Yany Wright CNP - 06/18/2021 1:14 PM EDT NEUROLOGY Office Visit [facility] [address] [place] [address], [address] [place] [address] (office) / [phone] (fax) Patient Name: Claudine Joseph : 1990 MR #: [id number] Date of Neurology Follow-up: 06/26/21 Name of Provider: Yany Wright [employer], [employer]OCK[employer] Other Physicians: Colette Goode MD (Primary Care Physician) Chief Complaint: Follow-up for Seizures (Pt here w/ mom for follow up. Reports having seizure everyday ) 31 y.o. female with CP in setting of Anoxic Brain Injury with history of Spasticity, MRSA, ARF, Kidney Stones and Seizures, follows with Dr. Richar Talbert, last follow-up in November 2020, here with mom who provides history with reports that she still having seizures daily. Claudine is nonverbal and cannot provide history. Interval History: Reports having increase seizure activity and occurring everyday. Reports having several severe seizures. Reports using Valtco and reports lasting longer but reports using often. Reports using a lot and using 2-3 times a week. Reports has pain in coccyx wound and reports healing and reports doing so much better. Reports has seen several plastic surgeons and reports was told that her wound would never heal. Reports around Que-camejo noting irritability, redness and mom reports suspect she is in pain. Notedshe has some type of growth underneath the Que-camejo. Noted increase grimacing and moaning to touchReports not able to get a referral to discuss replacement. Reports having trouble giving her tube feed and fluids. Reports had peg tube placed initially at [facility]. Reports Claudine and Mom had COVID-19 in June 2020. Currently has RUE PICC line. Mom reports still doing Epidiolex and improved seizures a little bit but reports has improved herdaily function and reports she is more alert. Denies any other new medical issues. Reports still taking care of several children on tube feedings. 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 Reports valium works better. Notes prior reported on Oxygen. Reports baclofen pump and following with [facility]. Reports has several nurses caring for Claudine at home. Seizure Types: -Little ones occurs every other day reports she will stare with tonic activity will verbalize like a laugh, head to the left with tonic-clonic activity. -Large Ones reports not anything like they were as above. Current Anti-convulsants(Prior to any changes today): Epidiolex 3 ml bid; Lamictal 250 mg BID, Keppra 1000 BID Liquid (did not tolerate titration to 1500 mg bid with reports of somnolence). Valium 2-6 mg as needed. Valtoco 2-3 times a week use for seizure rescue Adverse Events: Denies Prior Anti-convulsants: Tegretol, Lamictal, Keppra, phenobarbital, topiramate, Epidiolex, Valium History Recap: Claudine was adopted at age 10. 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 Febrile seizures Unknown. Prior workup: MRI- was completed but report was not available today EEG- From [facility] 1999 Álvaro, Generalized, Maximum bifrontal, 2001 Intermittent Rhythmic Slow, Generalized and regional Left Occipital EEG 2017- mild to moderate diffuse encephalopathy that is nonspecific. 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 Dysphagia Gastroesophageal reflux disease with esophagitis S/P percutaneous endoscopic gastrostomy (PEG) tube placement (HCC) Intractable symptomatic generalized epilepsy (HCC) Muscle spasticity 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HCC) Torticollis Pneumonia due to infectious organism Spasticity Febrile illness, acute Encephalopathy Hypoxia Restrictive lung disease due to kyphoscoliosis Aspiration, chronic pulmonary Tachycardia Generalized edema Sepsis (HCC) Sacral decubitus ulcer Reji-Gastaut syndrome (HCC) Pneumonia Aspiration pneumonia (HCC) UTI (urinary tract infection) Sacral wound, initial encounter COVID-19 Pressure injury of right ischium, stage 3 (HCC) Pain around PEG tube site Home Medications: Current Outpatient Medications Medication Sig Dispense Refill acetaminophen (TYLENOL) 325 MG tablet 650 mg by G-tube route every 6 (six) hours as needed for pain. baclofen (LIORESAL) 20 MG tablet baclofen 40,000 mcg/20mL (2,000 mcg/mL) Soln Simple continuous infusion ITB at daily dose of 649.8 mcg/day. . 40 mL 6 cannabidioL (Epidiolex) 100 mg/mL Soln Take 3.5 mL (350 mg total) by mouth 2 (two) times a day . 217 mL 5 cholecalciferol, vitamin D3, (VITAMIN D3) 2,000 unit cap 2,000 Units by G-tube route every morning. diazePAM (VALIUM) 2 MG tablet 3 (three) tablets (6 mg total) by Per G Tube route daily as needed For seizures . 30 tablet 0 diazePAM (Valtoco) 15 mg/2 spray (7.5/0.1mL x 2) Novi Instill 1 spray into each nostril as needed (Seizures, may repeat times 1 in 4 hours) . 8 each 5 doxycycline hyclate (VIBRAMYCIN) 100 MG capsule Take 100 mg by mouth 2 (two) times a day . fluconazole (DIFLUCAN) 150 MG tablet take 1 tablet by mouth once daily for 3 days if needed fluticasone propionate (FLONASE) 50 mcg/actuation nasal spray Instill 1 (one) spray into each nostril daily as needed for rhinitis . 16 g 11 guaiFENesin (ROBITUSSIN) 100 mg/5 mL syrup 200 mg by G-tube route 3 (three) times a day as needed for cough . ipratropium (ATROVENT) 0.02 % nebulizer solution inhale contents of 1 vial in nebulizer twice a dayIF CONGESTED OR WHEEZING OR LABORED CAN TAKE UP TO FOUR TIMES DAILY . 300 mL 11 lamoTRIgine (LAMICTAL) 100 MG tablet 1 (one) tablet (100 mg total) by Per G Tube route 2 (two) times a day Take with 150mg tablet . 60 tablet 11 lamoTRIgine (LAMICTAL) 150 MG tablet 1 (one) tablet (150 mg total) by Per G Tube route 2 (two) times a day Take with 100mg tablet . 60 tablet 11 levETIRAcetam (KEPPRA) 100 mg/mL solution Take 10 mL (1,000 mg total) by mouth 2 (two) times a day . 600 mL 11 loratadine (CLARITIN) 10 mg tablet 10 mg by G-tube route every morning . medroxyPROGESTERone (DEPO-PROVERA) 150 mg/mL Syrg INJECT 1ML INTRAMUSCULARLY EVERY 10 TO 13 WEEKS meropenem (MERREM) 50 mg/ml injection Infuse 0.5 g into a venous catheter . montelukast (SINGULAIR) 10 mg tablet 10 mg by Per G Tube route daily . multivitamin/iron/folic acid (CENTRUM ORAL) 10 mL by G-tube route every morning . omeprazole (PRILOSEC) 40 MG capsule 40 mg by G-tube route every morning . polyethylene glycol (MIRALAX) 17 gram powder 17 g by Per G Tube route every morning . promethazine (PHENERGAN) 12.5 MG suppository Insert 12.5 mg into the rectum every 6 (six) hours as needed for nausea. No current facility-administered medications for this visit. Review of Systems Unable to perform ROS: other Constitutional: Profound MRDD Physical Examination: Vitals: 06/18/21 1254 BP: 137/81 Pulse: (!) 110 Resp: 16 Temp: 98.8 F (37.1 C) Eyes are clear. Oral mucosa is moist. Extremities are without deformity. Denies skin rash. Noted on evaluation of her Que-camejo site that there is redness, tannish drainage and noted what appeared to be a fistula at the site. Neurological Examination: Not alert, nonverbal, noted that she was moaning and appeared to be more restless than usual. Had eyes open during office visit. Cranial Nerves II-XII limited secondary to profound MRDD, EOM moves spontaneous dysconjuate gaze, no notable facial weakness, with horizontal nystagmus BUE and BLE contractures with increased tone, no spontaneous movement of arms or legs noted. Sensation did not withdraw to touch Wheelchair bound Additional Diagnostic data reviewed: Past medical records. Assessment and Plan: This is a 31 y.o. female with: 1. 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 Intractable symptomatic generalized epilepsy (HCC) diazePAM (VALIUM) 2 MG tablet 3. Gastrostomy tube dysfunction (HCC) Ambulatory referral to Gastroenterology 4. S/P percutaneous endoscopic gastrostomy (PEG) tube placement (HCC) 5. Pain around percutaneous endoscopic gastrostomy (PEG) tube site, initial encounter 6. Spasticity 7. Hypoxia 1. Intractable symptomatic generalized epilepsy - Intractable seizures despite multiple AEDs but mom reports improvement with frequency, intensity,duration and severity and reports - Reports she is having seizures that have increased every day. Suspect that her increased seizure pattern may be secondary to her Que-camejo site possibly being infected and not functioning correctly. - Increased Epidiolex to 3.5 mL twice a day which equals around 17.5 mg/kg/day. Provided prescription. - Continue Lamictal at 250 mg bid for now. - Continued Keppra 1000 mg bid. - Continued Valium 6 mg daily as needed for seizure rescue. Provided prescription. - Will need to get clarification to see if mom is also using Valtco as needed with the oral Valium.Checked [facility] and noted that they are filling the prescriptions for Valtco. - Labs to consider at next office visit: CBC, CMP, Lamictal, Keppra. - Discussed VNS as alternative option at previous office visits and provided education pamphlet andmom would like to defer for now. - Does not drive. - Discussed with mom to call or MyChart with questions, concerns or any worsening seizure activity. - Discussed to call or MyChart with questions, concerns or any seizure activity. - Follow up in [address] Talbert. 2. Gastrostomy Tube Dysfunction -Noted that her Que-camejo button is red with tannish drainage and noted it appears she may have a fistula. -Mom reports that she has been more restless and moaning. -Mom also reports she has had difficulty giving tube feeds and fluids -I did place an order to pediatric gastroenterology to evaluate the Que-Camejo button. 3. Spastic cerebral palsy - Static Encephalopathy. - Baclofen pump. - [facility] in the [facility]. 4. Hypoxia - She was started on O2 and bipap for acute hypercapnia. - We will discuss at the next visit. - Follows with [facility]. Thanks once again for involving our practice in Claudine's care. As always, it is a pleasure to participate in the care of your patients, and we remain available to any of your patients who would benefit from timely neurological evaluation. Sincerely, Ynay Wright, [employer]UTTER HAND, DIRECTOR OF GLOBAL SALES Epilepsy Clinic, Epilepsy Monitoring Unit [facility] documented in this [id number] Miscellaneous Notes* Telephone Encounter - Julia Deshpande CMA - 05/15/2021 10:38 AM EDT Patient's mother called and requested that this refill go to [facility]. Previous rx went tothe wrong pharmacy. Requested Prescriptions Pending Prescriptions Disp Refills diazePAM (Valtoco) 15 mg/2 spray (7.5/0.1mL x 2) Novi 8 each 5 Sig: Instill 1 spray into each nostril as needed (Seizures, may repeat times 1 in 4 hours) . [facility] [place] [address] documented in this [id number] Miscellaneous Notes* Telephone Encounter - Falguni Curry RN - 05/09/2021 12:50 PM EDT Received a voicemail from Jane at [facility] wanting to clarify if the patient will be a home fill or clinic fill. They also need the prescription and insurance information. Call back is [phone]. Call placed to Jane and spoke with her. Everything has been uploaded into the system now, there are no needs at all from us. They received the prescription electronically on the . She will work on the home refill for patient. * Addendum Note - Ruma Godwin CNP - 05/09/2021 12:04 PM EDT Addended by: RUMA GODWIN on: 05/09/2021 12:04 PM Modules accepted: Orders * Addendum Note - Elroy Lopez RN - 05/09/2021 11:43 AM EDT Addended by: ELROY LOPEZ on: 05/09/2021 11:43 AM Modules accepted: Orders * Telephone Encounter - Elroy Lopez RN - 05/09/2021 11:41 AM EDT Received call from [facility]. They need patient's Baclofen order. It did not e-scribe. Prescription pended to print. * Telephone Encounter - Elroy Lopez RN - 05/07/2021 9:13 AM EDT Received call from Suzie MOTTA. She wants to know if patient's refills will be in clinic or at home. Call back: [phone] This is handled. * Telephone Encounter - Falguni Curry RN - 05/07/2021 8:42 AM EDT Clinical information faxed to [facility], confirmation received. * Telephone Encounter - Falguni Curry RN - 05/01/2021 10:36 AM EDT Plan for patient to be referred to [facility] for pump care in home. documented in this [id number] Miscellaneous Notes* Telephone Encounter - Falguni Curry RN - 05/09/2021 12:50 PM EDT Received a voicemail from Jane at [facility] wanting to clarify if the patient will be a home fill or clinic fill. They also need the prescription and insurance information. Call back is [phone]. Call placed to Jane and spoke with her. Everything has been uploaded into the system now, there are no needs at all from us. They received the prescription electronically on the . She will work on the home refill for patient. * Addendum Note - Ruma Godwin CNP - 05/09/2021 12:04 PM EDT Addended by: RUMA GODWIN on: 05/09/2021 12:04 PM Modules accepted: Orders * Addendum Note - Elroy Lopez RN - 05/09/2021 11:43 AM EDT Addended by: ELROY LOPEZ on: 05/09/2021 11:43 AM Modules accepted: Orders * Telephone Encounter - Elroy Lopez RN - 05/09/2021 11:41 AM EDT Received call from [facility]. They need patient's Baclofen order. It did not e-scribe. Prescription pended to print. * Telephone Encounter - Elroy Lopez RN - 05/07/2021 9:13 AM EDT Received call from Suzie MOTTA. She wants to know if patient's refills will be in clinic or at home. Call back: [phone] This is handled. * Telephone Encounter - Falguni Curry RN - 05/07/2021 8:42 AM EDT Clinical information faxed to [facility], confirmation received. * Telephone Encounter - Falguni Curry RN - 05/01/2021 10:36 AM EDT Plan for patient to be referred to [facility] for pump care in home. documented in this [id number] Miscellaneous Notes* Addendum Note - Ruma Godwin CNP - 05/09/2021 12:04 PM EDT Addended by: RUMA GODWIN on: 05/09/2021 12:04 PM Modules accepted: Orders * Addendum Note - Elroy Lopez RN - 05/09/2021 11:43 AM EDT Addended by: ELROY LOPEZ on: 05/09/2021 11:43 AM Modules accepted: Orders * Telephone Encounter - Elroy Lopez RN - 05/09/2021 11:41 AM EDT Received call from [facility]. They need patient's Baclofen order. It did not e-scribe. Prescription pended to print. * Telephone Encounter - Elroy Lopez RN - 05/07/2021 9:13 AM EDT Received call from Suzie MOTTA. She wants to know if patient's refills will be in clinic or at home. Call back: [phone] This is handled. * Telephone Encounter - Falguni Curry RN - 05/07/2021 8:42 AM EDT Clinical information faxed to [facility], confirmation received. * Telephone Encounter - Falguni Curry RN - 05/01/2021 10:36 AM EDT Plan for patient to be referred to [facility] for pump care in home. documented in this [id number] Miscellaneous Notes* Addendum Note - Elroy Lopez RN - 05/09/2021 11:43 AM EDT Addended by: ELROY LOPEZ on: 05/09/2021 11:43 AM Modules accepted: Orders * Telephone Encounter - Elroy Lopez RN - 05/09/2021 11:41 AM EDT Received call from [facility]. They need patient's Baclofen order. It did not e-scribe. Prescription pended to print. * Telephone Encounter - Elroy Lopez RN - 05/07/2021 9:13 AM EDT Received call from Suzie MOTTA. She wants to know if patient's refills will be in clinic or at home. Call back: [phone] This is handled. * Telephone Encounter - Falguni Curry RN - 05/07/2021 8:42 AM EDT Clinical information faxed to [facility], confirmation received. * Telephone Encounter - Falguni Curry RN - 05/01/2021 10:36 AM EDT Plan for patient to be referred to [facility] for pump care in home. documented in this [id number] Miscellaneous Notes* Telephone Encounter - Adrienne Anderson CMA - 05/07/2021 12:08 PM EDT [facility] is not showing the last fill of this. Dr. Talbert, The pharmacy reports that her last dosage was 3.2 ml/BID. Please advise. Thank you. documented in this [id number] History of Present illness Narrative* Ruma Godwin, ROCKY - 05/01/2021 10:45 AM EDT [facility] Spasticity Clinic: Intrathecal Baclofen Therapy Progress Note 05/01/2021 CHIEF COMPLAINT Spasticity follow up from 01/09/2021 IMPRESSIONS AT LAST VISIT / INTERM HISTORY Claudine Joseph is a 30 y/o female with medically refractory, severe spasticity secondary to CP managed with intrathecal baclofen therapy. Claudine is receiving IV antibiotics for osteomyelitis secondary to decubitus ulcer. We refilled her pump and maintained her current dose. Based on today s history, physical examination and review of ITB telemetry, I feel her severe spasticity is under good control. Current ITB goals include: decrease cramps and spasms, spasticity related pains, loosen thelegs, loosen the arms, improve options for seating and positioning, help prevent contractures and bed sores, improve caregiver ease of care Other associated diagnoses / active problems for this visit include: weakness, spasticity, requireswheelchair / scooter for mobility, decubitus ulcer. CONTEMOPORARY HISTORY Claudine presents to clinic with mom Peg for ITB pump refill. Peg reports no change in spasticity. Claudine has completed ATB treatment for osteomyelitis, woundis still open. Peg would like to explore [facility] for refills at home, it is difficult to get her here for pump refills. OTHER RELEVANT HISTORY [facility] - 05/01/21 1011 General Change in weight No Fever No Chills No Night Sweats No Cough No Shortness of Breath No Joint pain / swelling No Muscle pain / cramps No Chest pain No Palpitations No Nausea / Vomiting No Neurologic Double vision No Blurred / decreased vision No Difficulty swallowing No Difficulty with speech No Numbness / tingling No Painful skin sensations No Muscle weakness No Heat sensitivity No Motor fatigue No Incoordination/ poor balance Yes Difficulty walking Yes Recent Falls No L'hermitte No Difficulty with thinking and memory No Pathologic fatigue No Depression No Anxiety No Urinary urgency No Urinary frequency No Urinary retention / hesitancy No Recent Urinary Tract Infections No Bowel complaints No Sexual Dysfunction No Poor sleep No Headaches No Recent Seizures No She has a past medical history of Acute respiratory failure ([facility]), Allergic rhinitis, Anoxic brain damage ([facility]), Aspiration, chronic pulmonary, Bowel and bladder incontinence, Cerebral palsy ([facility]), Chronic kidney disease, Chronic osteomyelitis of pelvic region, right ([facility]) (2018), Chronic respiratory failure with hypoxia ([facility]), Constipation, Epilepsy ([facility]), GERD (gastroesophageal reflux disease),MRSA (methicillin resistant Staphylococcus aureus) (04/2016), Muscle spasticity, Nonverbal, PEG (percutaneous endoscopic gastrostomy) status ([facility]), Presence of intrathecal baclofen pump (1999), Restrictive lung disease due to kyphoscoliosis, Urine retention, and Wheelchair bound. She has a past surgical history that includes Peg Tube Insertion; Baclofen pump implantation; Salivary gland surgery; Back surgery (1999); Cholecystectomy; Pain Pump Revision (N/A, 07/27/2016); Laminectomy Decomp Thoracic Multi Level (N/A, 07/27/2016); and Incision And Drainage Lower Extremity (Right, 12/02/2018). She reports that she has never smoked. She has never used smokeless tobacco. She reports that she does not drink alcohol and does not use drugs. Social History Social History Narrative Not on file She She was adopted. Family history is unknown by patient. Allergies Allergen Reactions Levaquin [Levofloxacin] Rash, flushing with RUE arm swelling. Augmentin [Amoxicillin-Pot Clavulanate] Rash Per mother- tolerates Zosyn, unable to tolerate amoxil (blisters upper extremity) Lactose Intolerance [Lactase] Penicillins Other (See Comments) Blisters- amoxil Ragweed Unknown She has a current medication list which includes the following prescription(s): acetaminophen, baclofen, epidiolex, cholecalciferol (vitamin d3), diazepam, valtoco, doxycycline hyclate, fluconazole, fluticasone propionate, guaifenesin, ipratropium, lamotrigine, lamotrigine, levetiracetam, loratadine, medroxyprogesterone, montelukast, multivitamin/iron/folic acid, omeprazole, polyethylene glycol, promethazine, and meropenem. PHYSICAL EXAMINATION Vital Signs: Blood pressure 102/67, pulse (!) 103. General Appearance: in no apparent distress Eyes: Anicteric sclerae. Moist conjunctivae. No lid edema noted. HENT: Head atraumatic, normocephalic. Oropharynx clear. Moist mucous membranes. Neck/ Thyroid:trachea midline. Supple. No massess. No thyromegaly. Lungs: Normal respiratory effort. No intercostal retractions. No dyspnea during conversation. Abdomen: soft, non-distended Extremities: no clubbing, cyanosis, pedal edema, ulcer nor wound noted. Skin: warm, dry, no rash, no ecchymoses, no petechiae noted Pysch: non verbal NEUROLOGICAL EXAMINATION Mental Status is awake and tracking examiner, non verbal Modified Estefani Score: EE EF Hip add KE KF DF PF Right 2* 1 0 0 Left 1* 0 0 0 * limited ROM contractions at wrists, elbows and knees. Wheelchair bound ITB TELEMETRY and OTHER DATA I have independently reviewed the ITB pump system telemetry. ASSESSMENT Claudine Joseph is a 30 y/o female with medically refractory, severe spasticity secondaryto CP managed with intrathecal baclofen therapy who presents for pump refill. No change in spasticity. Mom Peg is interested in having pump refills done at home. She understands if Claudine needs anadjustment and once annually we will need to see her in clinic. We refilled her pump and maintained her current dose of 649.8mcg/day. Based on today s history, physical examination and review of ITB telemetry, I feel her severe spasticity is under good control. Current ITB goals include: decrease cramps and spasms, spasticity related pains, loosen thelegs, loosen the arms, improve options for seating and positioning, help prevent contractures and bed sores, improve caregiver ease of care Other associated diagnoses / active problems for this visit include: weakness, spasticity, requireswheelchair / scooter for mobility, decubitus ulcer. 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 Roxy RENE date: 23 months (March 2023) Synchromed I IPump Size: 40 mL Willard Location: 11 oclock Catheter Tip Placement: PLAN REGARDING INTRATHECAL BACLOFEN THERAPY First Medication Brand: LIORESAL Concentration: 2000 mcg/mL Total Daily Dose: 649.8 mcg/day 1. Pump Programming: Simple Continuous 2. Pump Esto Refill: The injection site was prepped sterilely, landmarks were identified, and the pump was accessed with a coring needle. Approximately 4 (calculated 3.7) cc of clear, colorless fluid was removed from the reservoir. The reservoir was then refilled with 40 ml of 2000mcg/ml baclofen for intrathecal administration. No difficulties were noted, and the pressure was within acceptable limits. kit # 8566: concentration 2000 mcg/ml, volume 40 ml was used. 3. Programming Adjustments today: None; refill only 4. ITB system Procedures today: pump computer interrogation, pump computer reprogramming and pump reservoir refill 5. Last reservoir refill date: 05/01/21 6. Pump Low Esto Alarm Date: 08/25/21 7. Claudine Joseph and/or her caregivers have verbal consents to all of the ITB system adjustments and procedures performed today PLAN REGARDING ADJUNCTIVE SPASTICITY THERAPIES 1. Noxious stimulation worsens spasticity. This included when the weather is cold outside, urinary tract infections and other infections, pressure sores, poor seating or sleeping ergonomics, constipation and urinary retention. she is encouraged to report any of these symptoms. 2. We recommend practicing good spasticity hygiene: A. Stretch upon waking, partway through the day, and before bed every day B. Stay adequately hydrated C. Treat constipation, urinary retention, bladder infections D. Check dependant areas of the body every day for redness / skin breakdown E. Exercise! Movement is camejo. Try yoga, magan chi, or water aerobics. D. Stop to stretch during long periods of sitting (long car ride, business meeting) F. Don't get too cool. Cold often worsens spasticity. 3. Discussed with Falguni MUNOZ will start process for [facility]. PLAN REGARDING FOLLOW UP 1. We will schedule follow up a week before her alarm date, which is 08/25/2021. 2. I strongly recommend that she keep an up-to-date emergency bottle of oral baclofen with her atall times to take for withdrawal symptoms. 3. I also recommend that she keep her [employer] identification card with our clinic contact information at all times. 4. [facility] Team can be reached for emergencies and after hours by calling the [facility] at PATIENT AND CARE PROVIDER EDUCATION You can learn more about spasticity and ITB therapy at the following website: [email or web address].baclofenpump.com If you have a smart phone then we recommend you download the free pump partner application as well. It is a resource for ITB education and tracking your personalized therapy. SYNCHROMED II ITB SYSTEM The intrathecal baclofen pump system is the way our treatment team gives baclofen directly into thespinal fluid. The system consists of a catheter (a small, flexible tube) and a pump. The pump -- a round metal disc, about one inch thick and three inches in diameter -- is surgically placed under the skin of the abdomen near the waistline. The pump stores and releases prescribed amounts of medicine through the cathete directly to the spinal fluid. With a programmable pump, a tiny motor moves themedication from the pump reservoir through the catheter. Using an external it programmer analyst, your treatment team can make adjustments in the dose, rate, and timing of the medication. Continuously delivers baclofen in small doses directly to the spinal fluid, increasing the therapeutic benefits and causing fewer and less severe side effects than the oral medication. Patients with a pump must return to their doctor's office for pump refills and medication adjustments, typically every 1-3 months. ITB SYSTEM MAINTENANCE AND REPAIR The catheter may kink, break or dislodge in up to 10% of cases and would require a surgery to revise it. The Synchromed II pump requires replacement for end of battery life within 7 years. This will require a surgery. The catheter is not required to be replaced, just the pump. INTRATHECAL BACLOFEN WITHDRAWAL Signs and symptoms of baclofen withdrawal often include diffuse body itching, increased stiffness and fever. I have reminded her to take 20mg of oral baclofen and contact our office if she has these symptoms. she may need to be seen in the emergency department. The baclofen withdrawal syndrome can progress to include confusion, sedation and even coma. In severe cases baclofen withdrawal can lead to kidney damage, seizures and possibly . A lumbar puncture with an injection of 50mcg intrathecal baclofen in the emergency department is often the best treatment to address severe balcofen withdrawal symptoms. INTRATHECAL BACLOFEN OVERDOSE Signs and symptoms of baclofen overdose often include sedation and confusion and most commonly occur recently following an ITB refill/program adjustment. I recommend Claudine Joseph contactour office prompts if these symptoms occur. The baclofen overdose syndrome can progress to include coma, seizures, respiratory and cardiac depression and possibly . I have reminded her to contact our office and go to the emergency room if she experiences these symptoms. A high volume lumbar puncture (removing 40cc of both CSF and intrathecal baclofen) in the emergency department is often thebest treatment for severe baclofen overdose symptoms. ITB SYSTEM INFECTION Infection of the pump system can lead to meningitis (severe brain infection) and can be possibly fatal. Signs and symptoms of pump infection can include redness, swelling, or pain around the pump or surgical scar on the back. Fever and a stiff neck are also common. I recommend that Claudine Joseph go to the Emergency Department if she has any of signs/symptoms of pump infection. MRI SCANNING Synchromed II ITB pumps are MRI compatible including 3T strength scanners. The pump stops pumping temporarily when the patient is moved near the MRI machine. The pump automatically restarts once the patient moves away from the MRI machine. We follow a clinic best practice of interrogating the pump following MRI scans to ensure the ITB pump has restarted. This can often be arranged to be done by [employer] Event [employer] if scheduled during business hours. We recommend AGAINST any MRI scans scheduled outside of business hours. EDUCATION: HOT TUBs, STEAM ROOMS, SAUNAS AND TANNING BED We recommend patients avoid these, especially if over 102 degrees. Heating up your body causes the ITB pump to potential increase its flow rate, which could cause overdose/. EDUCATION: SCUBA DIVING We recommend that an ITB patient avoid depths below 33 feet (10 meters). Diving lower than this could permanently damage the pump. Also as you descend and the pressure around your body increases, pump flow can decrease. This could lead to baclofen withdrawal/. EDUCATION REGARDING DAYLIGHT SAVINGS TIME The clock inside the pump does not adjust for daylight savings time changes (spring forward and fall backwards). If you are on flex dosing or bolus dosing programming then your dosing will becomeshifted an hour, which may cause problems for the patient. The pump clock only corrects for daylight savings time after being interrogated by a it programmer analyst. The flex/bolus dosing patient should schedule a visit after a time change to reset their pump clocks. I spent 30 minutes face to face with the patient today. Over half the time was spent counseling regarding her spasticity as well as it's underlying medical condition, as well as her coordinating care.Thank you very much for allowing me to participate in this patient's care and please do not hesitate to contact me with questions or concerns. Sincerely, Ruma Godwin MS, BSN, ACNP-BC, CNRN Acute Care Nurse Practitioner [facility] [address] [place] [address], [id number] [place] [address] Office [phone] documented in this [id number] Instructions* Patient Instructions* Ruma Godwin CNP - 05/01/2021 10:42 AM EDT INTRATHECAL BACLOFEN SYSTEM INFORMATION FOR Claudien Joseph Severe Spasticity due to: CP Implanted: [address] Roxy RENE date: 23 months (March 2023) Synchromed I IPump Size: 40 mL Willard Location: 11 oclock Catheter Tip Placement: PLAN REGARDING INTRATHECAL BACLOFEN THERAPY First Medication Brand: LIORESAL Concentration: 2000 mcg/mL Total Daily Dose: 649.8 mcg/day 1. Pump Programming: Simple Continuous 2. Pump Esto Refill: The injection site was prepped sterilely, landmarks were identified, and the pump was accessed with a coring needle. Approximately 4 (calculated 3.7) cc of clear, colorless fluid was removed from the reservoir. The reservoir was then refilled with 40 ml of 2000mcg/ml baclofen for intrathecal administration. No difficulties were noted, and the pressure was within acceptable limits. kit # 8566: concentration 2000 mcg/ml, volume 40 ml was used. 3. Programming Adjustments today: None; refill only 4. ITB system Procedures today: pump computer interrogation, pump computer reprogramming and pump reservoir refill 5. Last reservoir refill date: 05/01/21 6. Pump Low Esto Alarm Date: 08/25/21 7. Claudine Joseph and/or her caregivers have verbal consents to all of the ITB system adjustments and procedures performed today PLAN REGARDING ADJUNCTIVE SPASTICITY THERAPIES 1. Noxious stimulation worsens spasticity. This included when the weather is cold outside, urinary tract infections and other infections, pressure sores, poor seating or sleeping ergonomics, constipation and urinary retention. she is encouraged to report any of these symptoms. 2. We recommend practicing good spasticity hygiene: A. Stretch upon waking, partway through the day, and before bed every day B. Stay adequately hydrated C. Treat constipation, urinary retention, bladder infections D. Check dependant areas of the body every day for redness / skin breakdown E. Exercise! Movement is camejo. Try yoga, magan chi, or water aerobics. D. Stop to stretch during long periods of sitting (long car ride, business meeting) F. Don't get too cool. Cold often worsens spasticity. PLAN REGARDING FOLLOW UP 1. We will schedule follow up a week before her alarm date, which is 08/25/2021. 2. I strongly recommend that she keep an up-to-date emergency bottle of oral baclofen with her atall times to take for withdrawal symptoms. 3. I also recommend that she keep her [employer] identification card with our clinic contact information at all times. 4. [facility] Team can be reached for emergencies and after hours by calling the [facility] at PATIENT AND CARE PROVIDER EDUCATION You can learn more about spasticity and ITB therapy at the following website: www.baclofenpump.com If you have a smart phone then we recommend you download the free pump partner application as well. It is a resource for ITB education and tracking your personalized therapy. SYNCHROMED II ITB SYSTEM The intrathecal baclofen pump system is the way our treatment team gives baclofen directly into thespinal fluid. The system consists of a catheter (a small, flexible tube) and a pump. The pump -- a round metal disc, about one inch thick and three inches in diameter -- is surgically placed under the skin of the abdomen near the waistline. The pump stores and releases prescribed amounts of medicine through the cathete directly to the spinal fluid. With a programmable pump, a tiny motor moves themedication from the pump reservoir through the catheter. Using an external it programmer analyst, your treatment team can make adjustments in the dose, rate, and timing of the medication. Continuously delivers baclofen in small doses directly to the spinal fluid, increasing the therapeutic benefits and causing fewer and less severe side effects than the oral medication. Patients with a pump must return to their doctor's office for pump refills and medication adjustments, typically every 1-3 months. ITB SYSTEM MAINTENANCE AND REPAIR The catheter may kink, break or dislodge in up to 10% of cases and would require a surgery to revise it. The Synchromed II pump requires replacement for end of battery life within 7 years. This will require a surgery. The catheter is not required to be replaced, just the pump. INTRATHECAL BACLOFEN WITHDRAWAL Signs and symptoms of baclofen withdrawal often include diffuse body itching, increased stiffness and fever. I have reminded her to take 20mg of oral baclofen and contact our office if she has these symptoms. she may need to be seen in the emergency department. The baclofen withdrawal syndrome can progress to include confusion, sedation and even coma. In severe cases baclofen withdrawal can lead to kidney damage, seizures and possibly . A lumbar puncture with an injection of 50mcg intrathecal baclofen in the emergency department is often the best treatment to address severe balcofen withdrawal symptoms. INTRATHECAL BACLOFEN OVERDOSE Signs and symptoms of baclofen overdose often include sedation and confusion and most commonly occur recently following an ITB refill/program adjustment. I recommend Claudine Joseph contactour office prompts if these symptoms occur. The baclofen overdose syndrome can progress to include coma, seizures, respiratory and cardiac depression and possibly . I have reminded her to contact our office and go to the emergency room if she experiences these symptoms. A high volume lumbar puncture (removing 40cc of both CSF and intrathecal baclofen) in the emergency department is often thebest treatment for severe baclofen overdose symptoms. ITB SYSTEM INFECTION Infection of the pump system can lead to meningitis (severe brain infection) and can be possibly fatal. Signs and symptoms of pump infection can include redness, swelling, or pain around the pump or surgical scar on the back. Fever and a stiff neck are also common. I recommend that Claudine Joseph go to the Emergency Department if she has any of signs/symptoms of pump infection. MRI SCANNING Synchromed II ITB pumps are MRI compatible including 3T strength scanners. The pump stops pumping temporarily when the patient is moved near the MRI machine. The pump automatically restarts once the patient moves away from the MRI machine. We follow a clinic best practice of interrogating the pump following MRI scans to ensure the ITB pump has restarted. This can often be arranged to be done by [employer] if scheduled during business hours. We recommend AGAINST any MRI scans scheduled outside of business hours. EDUCATION: HOT TUBs, STEAM ROOMS, SAUNAS AND TANNING BED We recommend patients avoid these, especially if over 102 degrees. Heating up your body causes the ITB pump to potential increase its flow rate, which could cause overdose/. EDUCATION: SCUBA DIVING We recommend that an ITB patient avoid depths below 33 feet (10 meters). Diving lower than this could permanently damage the pump. Also as you descend and the pressure around your body increases, pump flow can decrease. This could lead to baclofen withdrawal/. EDUCATION REGARDING DAYLIGHT SAVINGS TIME The clock inside the pump does not adjust for daylight savings time changes (spring forward and fall backwards). If you are on flex dosing or bolus dosing programming then your dosing will becomeshifted an hour, which may cause problems for the patient. The pump clock only corrects for daylight savings time after being interrogated by a it programmer analyst. The flex/bolus dosing patient should schedule a visit after a time change to reset their pump clocks. I spent 30 minutes face to face with the patient today. Over half the time was spent counseling regarding her spasticity as well as it's underlying medical condition, as well as her coordinating care.Thank you very much for allowing me to participate in this patient's care and please do not hesitate to contact me with questions or concerns. Sincerely, Ruma Godwin MS, BSN, ACNP-BC, CNRN Acute Care Nurse Practitioner [facility] [address] [place], [address] [place] [address] Office [phone] documented in this [id number] Miscellaneous Notes* Telephone Encounter - Ila Muñiz MA - 04/30/2021 1:15 PM EDT Mom informed * Telephone Encounter - Ila Muñiz MA - 04/29/2021 9:36 AM EDT Received message from Peg (mom )on Rx line requesting medication refills to be sent to pharmacy *[address] [phone] Mom states that she love this medication , that it has a great response to Claudine and her seizures Orders Entered Requested Prescriptions Pending Prescriptions Disp Refills diazePAM (Valtoco) 15 mg/2 spray (7.5/0.1mL x 2) Novi 8 each 5 Sig: Instill 1 spray into each nostril as needed (Seizures, may repeat times 1 in 4 hours) . documented in this [id number] History of Present illness Narrative* Wilder Noland MD - 02/27/2021 11:49 AM EDT Images from the original note were not included. OFFICE CONSULT Patient Name: Claudine Joseph MR #: [id number] : 1990 Referring Physician: No ref. provider found Physicians: Colette Goode MD (Family); Assessment and Plan: I inspected the wound at the bedside. She has a sinus that extends down to the sacrum. Overall, thewound looks quite clean. Given her myriad of medical problems, I do not think she is really a reconstructive candidate. I would recommend continued dressing changes on a b.i.d. basis. Chief Complaint/Reason for Visit: Sacral decubitus ulcer stage III History of Present Illness: Ms. Joseph is an unfortunate 30-year-old young woman with anoxic brain injury and cerebral palsy. As a consequence she is wheelchair bound. She has developed a sacral decubitus ulcer. I have been asked to see her in this regard. Her health policy nurse states that there are no fever or chills, and drainage is minimal. History: Past Medical History: Diagnosis Date Acute respiratory failure ([facility]) Due to MRSA pneumonia 04/2016; Allergic rhinitis Anoxic brain damage ([facility]) Aspiration, chronic pulmonary Bowel and bladder incontinence Cerebral palsy ([facility]) Chronic kidney disease Chronic osteomyelitis of pelvic region, right ([facility]) 2018 required right ischial debridement, followed by Dr. Noland of plastics Chronic respiratory failure with hypoxia ([facility]) 3 L NC, followed by Dr. Stephy Cisse and Dr. Amalia Terry Constipation Epilepsy ([facility]) followed at [facility] neurology clinic GERD (gastroesophageal reflux disease) occasional vomiting with gagging MRSA (methicillin resistant Staphylococcus aureus) 04/2016 Bilateral lungs Muscle spasticity medically refractory and has baclofen pump since 1999, followed at [facility] neuro baclofen pump clinic Nonverbal Answers yes with very long blinks per adoptive parent PEG (percutaneous endoscopic gastrostomy) status ([facility]) Presence of intrathecal baclofen pump [address] 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 Urine retention occasional occurrence that requires straight cath periodically Wheelchair bound Past Surgical History: Procedure Laterality Date BACK SURGERY 1999 Marrufo rods placed BACLOFEN PUMP IMPLANTATION X 3- last 2009 CHOLECYSTECTOMY INCISION AND DRAINAGE LOWER EXTREMITY Right 12/02/2018 Procedure: INCISION AND DRAINAGE WITH BONE BIOPSY OF RIGHT ISCHIUM; Surgeon: Rad Luque MD; Location: [facility] Main OR; Service: Orthopedic LAMINECTOMY DECOMP THORACIC MULTI LEVEL N/A 07/27/2016 Procedure: T1-2 THORACIC FUSION REVISION ; Surgeon: Kb Ramsey MD; Location: [facility] Main OR; Service: PEG TUBE INSERTION REVISION PAIN PUMP N/A 07/27/2016 Procedure: BACLOFEN PUMP REPLACEMENT ; Surgeon: Kb Ramsey MD; Location: [facility] Main OR; Service: SALIVARY GLAND SURGERY Family History Adopted: Yes Family history unknown: Yes Social History Socioeconomic History Marital status: Single Spouse name: Not on file Number of children: Not on file Years of education: Not on file Highest education level: Not on file Occupational History Not on file Tobacco Use Smoking status: Never Smoker Smokeless tobacco: Never Used Vaping Use Vaping Use: Never used Substance and Sexual Activity Alcohol use: No Drug use: No Sexual activity: Not on file Other Topics Concern Not on file Social History Narrative Not on file Social Determinants of Health Financial Resource Strain: Difficulty of Paying Living Expenses: Food Insecurity: Worried About Running Out of Food in the Last Year: Ran Out of Food in the Last Year: Transportation Needs: Lack of Transportation (Medical): Lack of Transportation (Non-Medical): Physical Activity: Days of Exercise per Week: Minutes of Exercise per Session: Stress: Feeling of Stress : Social Connections: Frequency of Communication with Friends and Family: Frequency of Social Gatherings with Friends and Family: Attends Restoration Services: Active Member of Clubs or Organizations: Attends Club or Organization Meetings: Marital Status: Allergy Information: I have reviewed the patient's allergies. Levaquin [levofloxacin], Augmentin [amoxicillin-pot clavulanate], Lactose intolerance [lactase], Penicillins, and Ragweed Home Medications: Claudine Joseph Home Medication Instructions Prior to Surgery SADIE: Printed on:02/27/21 7648 Medication Information Take last dose on Take the morning of surgery Comment(s) acetaminophen (TYLENOL) 325 MG tablet 650 mg by G-tube route every 6 (six) hours as needed for pain . baclofen (LIORESAL) 20 MG tablet cannabidioL (Epidiolex) 100 mg/mL Soln Take 2 mL by mouth 2 (two) times a day . cholecalciferol, vitamin D3, (VITAMIN D3) 2,000 unit cap 2,000 Units by G-tube route every morning. diazePAM (VALIUM) 2 MG tablet 3 (three) tablets (6 mg total) by Per G Tube route daily as needed For seizures . diazePAM (Valtoco) 15 mg/2 spray (7.5/0.1mL x 2) Novi Instill 1 spray into each nostril as needed (Seizures, may repeat times 1 in 4 hours) . doxycycline hyclate (VIBRAMYCIN) 100 MG capsule Take 100 mg by mouth 2 (two) times a day . fluconazole (DIFLUCAN) 150 MG tablet take 1 tablet by mouth once daily for 3 days if needed fluticasone propionate (FLONASE) 50 mcg/actuation nasal spray Instill 1 (one) spray into each nostril daily as needed for rhinitis . guaiFENesin (ROBITUSSIN) 100 mg/5 mL syrup 200 mg by G-tube route 3 (three) times a day as needed for cough . ipratropium (ATROVENT) 0.02 % nebulizer solution inhale contents of 1 vial in nebulizer twice a day IF CONGESTED OR WHEEZING OR LABORED CAN TAKE UP TO FOUR TIMES DAILY . lamoTRIgine (LAMICTAL) 100 MG tablet 1 (one) tablet (100 mg total) by Per G Tube route 2 (two) times a day Take with 150mg tablet . lamoTRIgine (LAMICTAL) 150 MG tablet 1 (one) tablet (150 mg total) by Per G Tube route 2 (two) times a day Take with 100mg tablet . levETIRAcetam (KEPPRA) 100 mg/mL solution Take 10 mL (1,000 mg total) by mouth 2 (two) times a day . loratadine (CLARITIN) 10 mg tablet 10 mg by G-tube route every morning . medroxyPROGESTERone (DEPO-PROVERA) 150 mg/mL Syrg INJECT 1ML INTRAMUSCULARLY EVERY 10 TO 13 WEEKS meropenem (MERREM) 50 mg/ml injection Infuse 0.5 g into a venous catheter . montelukast (SINGULAIR) 10 mg tablet 10 mg by Per G Tube route daily . multivitamin/iron/folic acid (CENTRUM ORAL) 10 mL by G-tube route every morning . omeprazole (PRILOSEC) 40 MG capsule 40 mg by G-tube route every morning . polyethylene glycol (MIRALAX) 17 gram powder 17 g by Per G Tube route every morning . promethazine (PHENERGAN) 12.5 MG suppository Insert 12.5 mg into the rectum every 6 (six) hours as needed for nausea. Review of Systems: Review of Systems Unable to perform ROS: Patient nonverbal Constitutional: Negative for activity change, appetite change, chills, diaphoresis, fatigue, fever and unexpected weight change. HENT: Negative for congestion, dental problem, drooling, ear discharge, ear pain, facial swelling, hearing loss, mouth sores, nosebleeds, postnasal drip, rhinorrhea, sinus pressure, sneezing, sore throat, tinnitus, trouble swallowing and voice change. Eyes: Negative for photophobia, pain, discharge, redness, itching and visual disturbance. Respiratory: Negative for apnea, cough, choking, chest tightness, shortness of breath, wheezing andstridor. Cardiovascular: Negative for chest pain, palpitations and leg swelling. Gastrointestinal: Negative for abdominal distention, abdominal pain, anal bleeding, blood in stool,constipation, diarrhea, nausea and rectal pain. Endocrine: Negative for cold intolerance, heat intolerance, polydipsia, polyphagia and polyuria. Genitourinary: Negative for decreased urine volume, difficulty urinating, dysuria, enuresis, flank pain, frequency, genital sores, hematuria and urgency. Musculoskeletal: Negative for arthralgias, back pain, gait problem, joint swelling, myalgias, neck pain and neck stiffness. Skin: Negative for color change, pallor and rash. Allergic/Immunologic: Negative for environmental allergies, food allergies and immunocompromised state. Neurological: Negative for dizziness, tremors, seizures, syncope, facial asymmetry, speech difficulty, weakness, light-headedness, numbness and headaches. Hematological: Negative for adenopathy. Does not bruise/bleed easily. Psychiatric/Behavioral: Negative for agitation, behavioral problems, confusion, decreased concentration, dysphoric mood, hallucinations and self-injury. The patient is not nervous/anxious and is not hyperactive. Physical Examination: Vital Signs: There were no vitals taken for this visit. Physical Exam Constitutional: Appearance: She is well-developed. HENT: Head: Normocephalic. Right Ear: External ear normal. Left Ear: External ear normal. Nose: Nose normal. Eyes: General: No scleral icterus. Left eye: No discharge. Pupils: Pupils are equal, round, and reactive to light. Neck: Thyroid: No thyromegaly. Vascular: No JVD. Trachea: No tracheal deviation. Cardiovascular: Rate and Rhythm: Normal rate and regular rhythm. Heart sounds: Normal heart sounds. No murmur heard. No friction rub. No gallop. Pulmonary: Effort: No respiratory distress. Breath sounds: No wheezing or rales. Chest: Chest wall: No tenderness. Abdominal: General: There is no distension. Palpations: There is no mass. Tenderness: There is no abdominal tenderness. There is no guarding or rebound. Genitourinary: Musculoskeletal: General: No tenderness or deformity. Cervical back: Normal range of motion and neck supple. Lymphadenopathy: Cervical: No cervical adenopathy. Skin: Coloration: Skin is not pale. Findings: No erythema or rash. Neurological: Cranial Nerves: No cranial nerve deficit. Motor: No abnormal muscle tone. Coordination: Coordination normal. Deep Tendon Reflexes: Reflexes normal. Psychiatric: Behavior: Behavior normal. Thought Content: Thought content normal. Judgment: Judgment normal. documented in this [id number] History of Present illness Narrative* Werner Kaplan Jr., MD - 02/18/2021 3:59 PM EDT Associated Order(s): Wound Debridement Post-Procedure Diagnose(s): Pressure injury of right ischium, stage 3 (HCC) Debridement Consent obtained? written Consent given by: guardian Risks discussed? procedural risks discussed Time out called at 02/10/2021 2:37 PM Immediately prior to the procedure a time out was called Debridement type: surgical Level of debridement: subcutaneous tissue Pain control: none Pre-debridement measurements Length (cm): 1.5 Width (cm): 2.5 Depth (cm): 2.2 Surface Area (cm^2): 3.75 Volume (cm^3): 8.25 Post-debridement measurements Length (cm): 1.5 Width (cm): 2.5 Depth (cm): 2.3 Percent debrided: 100% Surface Area (cm^2): 3.75 Area debrided (cm^2): 3.75 Volume (cm^3): 8.63 Tissue and other material debrided: hypergranulation Debridement mechanism: silver nitrate. Bleeding: small Hemostasis obtained with: silver nitrate Procedural pain (0-10): 0 Post-procedural pain: 0 Response to treatment: procedure was tolerated well * Werner Kaplan Jr., MD - 02/10/2021 4:53 PM EDT CONSULT NOTE Patient Name: Claudine Joseph MR #: [id number] : 1990 Referring Physician: No ref. provider found Physicians: Colette Goode MD (Family); Chief Complaint/Reason for Visit: Right ischial pressure ulcer History of Present Illness: Claudine Joseph is a 30 y.o. y/o female presenting from home with c/o right ischial pressure ulcer. She is nonverbal, with advanced CP, bed bound, with a very caring and resourceful mother. She has had a right ischial pressure ulcer for 2-3 years, and has been treated with packing and vacuum dressing. She does not drink ETOH or use tobacco or drugs. She lives with her mother. She has a Roho cushion and wheel chair. She has a lift at home. She has help to turn her andoff load her pressure sites. She has an indwelling urethral catheter, and stools from her anus. Hermother admits to noticing stool contaminated in the right ischial wound at times. She has a baclofen pump for spasticity, and is incontinent of urine and stool. Her mother would like to have the ischial wound surgically corrected if possible. She was recently started on meropenum to treat the ischial ulcer based on recent imaging at an OSH.The ulcer looks deeper today, and the surrounding intact skin has exfoliative breakdown. She has seen Dr. Cross who finds indications for ostomy, and they are planning such in the future. She sees urology in the near future for evaluation of suprapubic catheter. Patient's mother actively promotes high protein intake, but has trouble finding protein solutions that are dairy free, as her daughter has lactose intolerance. She is here today to discuss coordination of care, and how to best manage her daughter's ischial pressure ulcer moving forward, and the options at wound reconstruction. History: I have reviewed the patient's past medical history. Past Medical History: Diagnosis Date Acute respiratory failure (HCC) Due to MRSA pneumonia 04/2016; Allergic rhinitis Anoxic brain damage (HCC) Aspiration, chronic pulmonary Bowel and bladder incontinence Cerebral palsy (HCC) Chronic kidney disease Chronic osteomyelitis of pelvic region, right (HCC) 2019 required right ischial debridement, followed by Dr. Noland of plastics Chronic respiratory failure with hypoxia (HCC) 3 L NC, followed by Dr. Stephy Cisse and Dr. Amalia Terry Constipation Epilepsy ([facility]) followed at [facility] neurology clinic GERD (gastroesophageal reflux disease) occasional vomiting with gagging MRSA (methicillin resistant Staphylococcus aureus) 04/2016 Bilateral lungs Muscle spasticity medically refractory and has baclofen pump since 1999, followed at [facility] neuro baclofen pump clinic Nonverbal Answers yes with very long blinks per adoptive parent PEG (percutaneous endoscopic gastrostomy) status ([facility]) Presence of intrathecal baclofen pump [address] 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 Urine retention occasional occurrence that requires straight cath periodically Wheelchair bound I have reviewed the patient's past surgical history. Past Surgical History: Procedure Laterality Date BACK SURGERY 1999 Marrufo rods placed BACLOFEN PUMP IMPLANTATION X 3- last 2009 CHOLECYSTECTOMY INCISION AND DRAINAGE LOWER EXTREMITY Right 12/02/2018 Procedure: INCISION AND DRAINAGE WITH BONE BIOPSY OF RIGHT ISCHIUM; Surgeon: Rad Luque MD; Location: [facility] Main OR; Service: Orthopedic LAMINECTOMY DECOMP THORACIC MULTI LEVEL N/A 07/27/2016 Procedure: T1-2 THORACIC FUSION REVISION ; Surgeon: Kb Ramsey MD; Location: [facility] Main OR; Service: PEG TUBE INSERTION REVISION PAIN PUMP N/A 07/27/2016 Procedure: BACLOFEN PUMP REPLACEMENT ; Surgeon: Kb Ramsey MD; Location: [facility] Main OR; Service: SALIVARY GLAND SURGERY I have reviewed the patient's family history. Family History Adopted: Yes Family history unknown: Yes I have reviewed the patient's social history. Social History Socioeconomic History Marital status: Single Spouse name: Not on file Number of children: Not on file Years of education: Not on file Highest education level: Not on file Occupational History Not on file Tobacco Use Smoking status: Never Smoker Smokeless tobacco: Never Used Vaping Use Vaping Use: Never used Substance and Sexual Activity Alcohol use: No Drug use: No Sexual activity: Not on file Other Topics Concern Not on file Social History Narrative Not on file Social Determinants of Health Financial Resource Strain: Difficulty of Paying Living Expenses: Food Insecurity: Worried About Running Out of Food in the Last Year: Ran Out of Food in the Last Year: Transportation Needs: Lack of Transportation (Medical): Lack of Transportation (Non-Medical): Physical Activity: Days of Exercise per Week: Minutes of Exercise per Session: Stress: Feeling of Stress : Social Connections: Frequency of Communication with Friends and Family: Frequency of Social Gatherings with Friends and Family: Attends Restoration Services: Active Member of Clubs or Organizations: Attends Club or Organization Meetings: Marital Status: Allergy Information: I have reviewed the patient's allergies. Levaquin [levofloxacin], Augmentin [amoxicillin-pot clavulanate], Lactose intolerance [lactase], Penicillins, and Ragweed Home Medications: Joseph Claudine Siena Home Medication Instructions Prior to Surgery SADIE:[id number] Printed on:02/10/21 [id number] Medication Information Take last dose on Take the morning of surgery Comment(s) acetaminophen (TYLENOL) 325 MG tablet 650 mg by G-tube route every 6 (six) hours as needed for pain . baclofen (LIORESAL) 20 MG tablet cannabidioL (Epidiolex) 100 mg/mL Soln Take 2 mL by mouth 2 (two) times a day . cholecalciferol, vitamin D3, (VITAMIN D3) 2,000 unit cap 2,000 Units by G-tube route every morning. diazePAM (VALIUM) 2 MG tablet 3 (three) tablets (6 mg total) by Per G Tube route daily as needed For seizures . diazePAM (Valtoco) 15 mg/2 spray (7.5/0.1mL x 2) Novi Instill 1 spray into each nostril as needed (Seizures, may repeat times 1 in 4 hours) . doxycycline hyclate (VIBRAMYCIN) 100 MG capsule Take 100 mg by mouth 2 (two) times a day . fluconazole (DIFLUCAN) 150 MG tablet take 1 tablet by mouth once daily for 3 days if needed fluticasone propionate (FLONASE) 50 mcg/actuation nasal spray Instill 1 (one) spray into each nostril daily as needed for rhinitis . guaiFENesin (ROBITUSSIN) 100 mg/5 mL syrup 200 mg by G-tube route 3 (three) times a day as needed for cough . ipratropium (ATROVENT) 0.02 % nebulizer solution inhale contents of 1 vial in nebulizer twice a day IF CONGESTED OR WHEEZING OR LABORED CAN TAKE UP TO FOUR TIMES DAILY . lamoTRIgine (LAMICTAL) 100 MG tablet 1 (one) tablet (100 mg total) by Per G Tube route 2 (two) times a day Take with 150mg tablet . lamoTRIgine (LAMICTAL) 150 MG tablet 1 (one) tablet (150 mg total) by Per G Tube route 2 (two) times a day Take with 100mg tablet . levETIRAcetam (KEPPRA) 100 mg/mL solution Take 10 mL (1,000 mg total) by mouth 2 (two) times a day . loratadine (CLARITIN) 10 mg tablet 10 mg by G-tube route every morning . medroxyPROGESTERone (DEPO-PROVERA) 150 mg/mL Syrg INJECT 1ML INTRAMUSCULARLY EVERY 10 TO 13 WEEKS meropenem (MERREM) 50 mg/ml injection Infuse 0.5 g into a venous catheter . montelukast (SINGULAIR) 10 mg tablet 10 mg by Per G Tube route daily . multivitamin/iron/folic acid (CENTRUM ORAL) 10 mL by G-tube route every morning . omeprazole (PRILOSEC) 40 MG capsule 40 mg by G-tube route every morning . polyethylene glycol (MIRALAX) 17 gram powder 17 g by Per G Tube route every morning . promethazine (PHENERGAN) 12.5 MG suppository Insert 12.5 mg into the rectum every 6 (six) hours as needed for nausea. Review of Systems: The following system(s) were reviewed and pertinent findings noted: Constitutional:No fever, no weight loss Eyes:No diplopia ENT:No sinus drainage CV:No chest pain. No ankle swelling Resp:No dyspnea. No wheezing GI:No abdominal pain.No abdominal distention Endo:No polyuria Heme/lymphatic:No apparent lymphadenopathy Allergic/Immunologic:No hives Psych:No unusual mood swings All other systems reviewed and negative other than HPI Physical Examination: Vital Signs: BP 91/62 Pulse 86 Temp 97.2 F (36.2 C) (Temporal) Resp 16 SpO2 97% General: Alert, cooperative, no distress, appears stated age Chronic contractures secondary to long standing CP. Head: Normocephalic, without obvious abnormality, atraumatic Eyes: PERRL, EOM's intact, Throat: Lips, mucosa, and tongue normal; teeth and gums normal Neck: Supple, symmetrical, trachea midline, no adenopathy; thyroid: no enlargement/tenderness/nodules; noJVD Back: Symmetric, no curvature, ROM normal, no CVA tenderness Lungs: Respirations unlabored,normal respiratory effort Chest Wall: No tenderness or deformity Cardiovascular: Regular rate and rhythm, Pulses 2+ and symmetric all extremities Abdomen: Soft, non-tender,no masses, no organomegaly Extremities: Normal, atraumatic, no cyanosis or edema Skin: Skin color, texture, turgor normal, no rashes or lesions Right ischial pressure ulcer, stage 3-4, no erythema or foul drainage, chronic appearance, likely scar and pseudobursa present. periwound skin with slough and breakdown. Imaging: EXAMINATION: CT ABDOMEN PELVIS WITH IV CONTRAST ONLY ADDITIONAL CLINICAL INFORMATION: Abdominal pain, acute, nonlocalized. COMPARISON: 01/10/2020. TECHNIQUE: Enhanced helical acquisition was obtained from the lung bases through the pubic symphysis followingadministration of bolus intravenous contrast (75 mL Isovue- 370). Dose reduction techniques were achieved by using automated exposure control and/or adjustment of mA and/or kV according to patient size and/or use of iterative reconstruction technique. FINDINGS: ABDOMINAL CT: The visualized lung bases and the pleural spaces are clear. There is beam-hardening artifact secondary to spinal rods. There is marked dextroconvex scoliotic curvature of the thoracic spine. There has been prior cholecystectomy. Gastrostomy tube appears appropriately positioned. The spleen, pancreas, adrenal glands are unremarkable in appearance. There are multiple subcentimeter nonobstructing right renal calculi. No enlarged lymph nodes are visualized within the abdomen. PELVIC CT: The appendix has a normal appearance. Sage catheter is present. There appears to be diffuse urinary bladder wall thickening, accentuated secondary to decompressed status of the urinary bladder. No ascites or focal intraperitoneal fluid collections are visualized. Numerous scattered air-fluid levels are present throughout the colon. No enlarged lymph nodes are visualized within the pelvis. IMPRESSION: 1. Sage catheter is present within decompressed urinary bladder. There appears to be diffuse urinary bladder wall thickening which appears to be accentuated secondary to the decompressed status of the urinary bladder. Recommend correlation for cystitis with urinalysis findings. 2. Numerous scattered air-fluid levels are present throughout the colon without evidence of bowel obstruction. No inflammatory changes are identified. 3. Appropriate position of the gastrostomy tube. 4. Normal appendix. Laboratory and Additional Data Reviewed: Laboratory 02/10/21 4:53 PM Radiology 02/10/21 4:53 PM Medications 02/10/21 4:53 PM Transcriptions 02/10/21 4:53 PM Assessment and Plan: 35 minutes were spent with the patient, of which 30 minutes were spent counseling and in coordination of care. 30 yof, with advanced CP, completely dependent and nonverbal, incontinent of urine and stool, PEG tube in place, presents with a very resourceful and caring mother, interested in having her right ischial pressure ulcer surgically corrected. We find her environment to be very supportive, and resourceful with the tools necessary to help off-load the patient, frequent turns, and supportive care. However, it is unclear what her nutritional status is, and she needs her urine and stool diverted away from the right ischial pressure ulcer, and any subsequent reconstructive surgery we may provide.As such, we have ordered albumin and prealbumin labs, and the patient's mother is aware of our indic ations for these results, and how protein plays a role in wound healing, and surgical reconstruction. She has seen Dr. Wilder Cross general surgeon, for ostomy, who finds indications for such, with plans for surgical ostomy creation in the near future. She is due to see Dr. Bruno Salgado urologist, to be evaluated for suprabupic catheter, in the coming weeks. After she is healed for a few months from these procedures, she is to return to our wound care center with her mother for re-evaluation and to discuss surgery to help close the ulcer. Diversion, off-loading, sound wound care, and good nutrition, may help this area close on its own. We'll see. I recommend follow-up in our wound care center 2-3 months after creation of ostomy and suprapubic catheter. We can review nutrition labs at that time as well. We have also ordered a new mapping for the Roho cushion and for her wheel chair, so she has a new cushion in place every 6 months or so. documented in this [id number] Instructions* Patient Instructions* William Garg RN - 02/10/2021 3:01 PM EDT The following Patient Instructions and Wound Care Orders are current as of this date. All previous orders/treatments should be discontinued. Wound Care Orders: Wound location: right ischial Clean with saline or soap and water May NOT shower Apply skin prep to periwound to protect skin from tape. Apply the following (OR EQUIVALENT): Aquacel Ag 3/4 ribbon Cover with [place] border Change every day May change outer dressing if it becomes soiled or saturated Aquacel ag and dry dressing in clinic today Per Verbal Order Read Back Patricia stout has been ordered. Supplies We have sent your supply order to the following company: [employer]: [phone] If you don't receive the items you were expecting or don't know what the items are that you received, call the company where the order was sent. If you are unable to obtain wound supplies, continue to use the supplies you have available until your are able to reach us. It is most important to keep the wound covered at all times. It is YOUR responsibility to make sure that supplies are re-ordered before you run out. Re-order telephone numbers are included in each package. A referral was made to general surgery, to Dr Wilder Cross. His office will contact you to schedule anappointment. High Blood Pressure: If your blood pressure taken today is above 150/95, please contact your primary care physician to get further instructions. If you experience the following emergent symptoms; chest pain, shortness ofbreath, headache, dizziness, vision changes, unusual and/or excessive sweating or nausea vomiting -call [phone] or go to the nearest emergency room. Bleeding: If your wound was debrided and continues to bleed after your appointment, apply direct pressure to the wound with a clean cloth or dressing for 10-20 minutes. If the bleeding does not stop, call [facility] [phone] or go to the Emergency Room. Signs/Symptoms of Infection: If you have any fever, chills, nausea, vomiting or increased odor, drainage, pain or redness to thewound, call [facility] at [phone]. If after hours, contact your family physician or go to the Emergency Room. Tips You can do at Home to Help Heal Your Wound Skin Care: Use apply moisturizing lotion to dry, intact skin, avoid getting between the toes. Apply skin sealant or barrier to protect the skin from too much moisture. Inspect skin (including feet) daily for redness, blisters, rash, cracks, or open areas. Incontinence Skin Care Quickly cleanse and gently pat dry after every incontinence episode or loose bowel movement to keeparea as clean and dry as possible. Use a barrier cream to protect skin as directed. Pressure Relief Instructions: Keep weight and pressure off your wound(s) and bony areas of the body (for example, heels, tail bone, hip, elbows, back of head). Reposition as instructed. Shift position in chair every 15 minutes.Turn every 2 hours while lying down. Specialty Bed: Alternating Air Mattress Wheelchair cushion: Roho. Use this wherever you are sitting. documented in this [id number] History of Present illness Narrative* Wilder Cross, - 02/06/2021 2:50 PM EDT Subjective: Claudine Joseph is a 30 y.o. female presenting with caregiver related to ischial ulcer. This has been present for years and has been cared for by several surgeons at varying locations. Mostrecently seen by Dr Kaplan who was recommending SP tube and colostomy creation. Caregiver reports stool can contaminate the wound despite her care. Previous abdominal surgeries include cholecystectomy and PEG. Also has Baclofen pump which is located in right abdominal area. The following portions of the patient's history were reviewed and updated as appropriate: allergies, current medications, past family history, past medical history, past social history, past surgicalhistory and problem list. Review of Systems Unable to perform ROS: Patient nonverbal Objective: BP 111/74 Pulse 63 Ht 4' 5 Wt 38.6 kg (85 lb) BMI 21.28 kg/m Physical Exam Constitutional: General: She is not in acute distress. Appearance: She is well-developed. HENT: Head: Normocephalic and atraumatic. Eyes: General: No scleral icterus. Conjunctiva/sclera: Conjunctivae normal. Neck: Thyroid: No thyroid mass. Abdominal: General: There is no distension. Palpations: Abdomen is soft. Tenderness: There is no abdominal tenderness. Hernia: There is no hernia in the ventral area. Musculoskeletal: General: Normal range of motion. Cervical back: Neck supple. Skin: General: Skin is warm and dry. Neurological: Mental Status: She is alert and oriented to person, place, and time. Assessment/Plan: Problem List Items Addressed This Visit None Visit Diagnoses Pressure injury of right ischium, stage 3 (HCC) - Primary Relevant Orders Vital signs Case Request Operating Room: COLOSTOMY LAPAROSCOPIC Wound ostomy eval and treat I discussed the diagnosis with the patient as well as treatment options, including risks, benefits,and alternatives related to surgical intervention. The patient verbalized an understanding and elects to proceed. documented in this [id number] History of Present illness Narrative* Wilder Cross DO - 02/06/2021 2:50 PM EDT Subjective: Claudine Joseph is a 30 y.o. female presenting with caregiver related to ischial ulcer. This has been present for years and has been cared for by several surgeons at varying locations. Mostrecently seen by Dr Kaplan who was recommending SP tube and colostomy creation. Caregiver reports stool can contaminate the wound despite her care. Previous abdominal surgeries include cholecystectomy and PEG. Also has Baclofen pump which is located in right abdominal area. The following portions of the patient's history were reviewed and updated as appropriate: allergies, current medications, past family history, past medical history, past social history, past surgicalhistory and problem list. Review of Systems Unable to perform ROS: Patient nonverbal Objective: BP 111/74 Pulse 63 Ht 4' 5 Wt 38.6 kg (85 lb) BMI 21.28 kg/m Physical Exam Constitutional: General: She is not in acute distress. Appearance: She is well-developed. HENT: Head: Normocephalic and atraumatic. Eyes: General: No scleral icterus. Conjunctiva/sclera: Conjunctivae normal. Neck: Thyroid: No thyroid mass. Abdominal: General: There is no distension. Palpations: Abdomen is soft. Tenderness: There is no abdominal tenderness. Hernia: There is no hernia in the ventral area. Musculoskeletal: General: Normal range of motion. Cervical back: Neck supple. Skin: General: Skin is warm and dry. Neurological: Mental Status: She is alert and oriented to person, place, and time. Assessment/Plan: Problem List Items Addressed This Visit None Visit Diagnoses Pressure injury of right ischium, stage 3 (HCC) - Primary Relevant Orders Vital signs Case Request Operating Room: COLOSTOMY LAPAROSCOPIC Wound ostomy eval and treat I discussed the diagnosis with the patient as well as treatment options, including risks, benefits,and alternatives related to surgical intervention. The patient verbalized an understanding and elects to proceed. documented in this [id number] History of Present illness Narrative* Wernre Kaplan Jr., MD - 01/20/2021 1:32 PM EDT CONSULT NOTE Patient Name: Claudine Joseph MR #: [id number] : 1990 Referring Physician: Marielle Duque* Physicians: Colette Goode MD (Family); Chief Complaint/Reason for Visit: Right ischial pressure ulcer History of Present Illness: Claudine Joseph is a 30 y.o. y/o female presenting from home with c/o right ischial pressure ulcer. She is nonverbal, with advanced CP, bed bound, with a very caring and resourceful mother. She has had a right ischial pressure ulcer for 2-3 years, and has been treated with packing and vacuum dressing. She does not drink ETHO or use tobacco or drugs. She lives with her mother. She has an updated Roho cushion and wheel chair. She has a lift at home. She has help to turn her and off load her pressure sites. She has an indwelling urethral catheter, and stools from her anus. Her mother admits to noticing stool contaminated in the right ischial wound at times. She has a baclofen pump for spasticity, and is incontinent of urine and stool. Her mother would like to havethe ischial wound surgically corrected if possible. History: I have reviewed the patient's past medical history. Past Medical History: Diagnosis Date Acute respiratory failure (HCC) Due to MRSA pneumonia 04/2016; Allergic rhinitis Anoxic brain damage (HCC) Aspiration, chronic pulmonary Bowel and bladder incontinence Cerebral palsy (HCC) Chronic kidney disease Chronic osteomyelitis of pelvic region, right ([facility]) 2019 required right ischial debridement, followed by Dr. Noland of plastics Chronic respiratory failure with hypoxia ([facility]) 3 L NC, followed by Dr. Stephy Cisse and Dr. Amalia Terry Constipation Epilepsy ([facility]) followed at [facility] neurology clinic GERD (gastroesophageal reflux disease) occasional vomiting with gagging MRSA (methicillin resistant Staphylococcus aureus) 04/2016 Bilateral lungs Muscle spasticity medically refractory and has baclofen pump since 1999, followed at [facility] neuro baclofen pump clinic Nonverbal Answers yes with very long blinks per adoptive parent PEG (percutaneous endoscopic gastrostomy) status ([facility]) Presence of intrathecal baclofen pump [address] 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 Urine retention occasional occurrence that requires straight cath periodically Wheelchair bound I have reviewed the patient's past surgical history. Past Surgical History: Procedure Laterality Date BACK SURGERY 1999 Marrufo rods placed BACLOFEN PUMP IMPLANTATION X 3- last 2009 CHOLECYSTECTOMY INCISION AND DRAINAGE LOWER EXTREMITY Right 12/02/2018 Procedure: INCISION AND DRAINAGE WITH BONE BIOPSY OF RIGHT ISCHIUM; Surgeon: Rad Luque MD; Location: [facility] Main OR; Service: Orthopedic LAMINECTOMY DECOMP THORACIC MULTI LEVEL N/A 07/27/2016 Procedure: T1-2 THORACIC FUSION REVISION ; Surgeon: Kb Ramsey MD; Location: [facility] Main OR; Service: PEG TUBE INSERTION REVISION PAIN PUMP N/A 07/27/2016 Procedure: BACLOFEN PUMP REPLACEMENT ; Surgeon: Kb Ramsey MD; Location: [facility] Main OR; Service: SALIVARY GLAND SURGERY I have reviewed the patient's family history. Family History Adopted: Yes Family history unknown: Yes I have reviewed the patient's social history. Social History Socioeconomic History Marital status: Single Spouse name: Not on file Number of children: Not on file Years of education: Not on file Highest education level: Not on file Occupational History Not on file Tobacco Use Smoking status: Never Smoker Smokeless tobacco: Never Used Vaping Use Vaping Use: Never used Substance and Sexual Activity Alcohol use: No Drug use: No Sexual activity: Not on file Other Topics Concern Not on file Social History Narrative Not on file Social Determinants of Health Financial Resource Strain: Difficulty of Paying Living Expenses: Food Insecurity: Worried About Running Out of Food in the Last Year: Ran Out of Food in the Last Year: Transportation Needs: Lack of Transportation (Medical): Lack of Transportation (Non-Medical): Physical Activity: Days of Exercise per Week: Minutes of Exercise per Session: Stress: Feeling of Stress : Social Connections: Frequency of Communication with Friends and Family: Frequency of Social Gatherings with Friends and Family: Attends Restoration Services: Active Member of Clubs or Organizations: Attends Club or Organization Meetings: Marital Status: Allergy Information: I have reviewed the patient's allergies. Levaquin [levofloxacin], Augmentin [amoxicillin-pot clavulanate], Lactose intolerance [lactase], Penicillins, and Ragweed Home Medications: Claudine Joseph Home Medication Instructions Prior to Surgery SADIE:[id number] Printed on:01/20/21 8390 Medication Information Take last dose on Take the morning of surgery Comment(s) acetaminophen (TYLENOL) 325 MG tablet 650 mg by G-tube route every 6 (six) hours as needed for pain . cannabidioL (Epidiolex) 100 mg/mL Soln Take 2 mL by mouth 2 (two) times a day . cholecalciferol, vitamin D3, (VITAMIN D3) 2,000 unit cap 2,000 Units by G-tube route every morning. diazePAM (VALIUM) 2 MG tablet 3 (three) tablets (6 mg total) by Per G Tube route daily as needed For seizures . diazePAM (Valtoco) 15 mg/2 spray (7.5/0.1mL x 2) Novi Instill 1 spray into each nostril as needed (Seizures, may repeat times 1 in 4 hours) . doxycycline hyclate (VIBRAMYCIN) 100 MG capsule Take 100 mg by mouth 2 (two) times a day . fluticasone propionate (FLONASE) 50 mcg/actuation nasal spray Instill 1 (one) spray into each nostril daily as needed for rhinitis . guaiFENesin (ROBITUSSIN) 100 mg/5 mL syrup 200 mg by G-tube route 3 (three) times a day as needed for cough . ipratropium (ATROVENT) 0.02 % nebulizer solution inhale contents of 1 vial in nebulizer twice a day IF CONGESTED OR WHEEZING OR LABORED CAN TAKE UP TO FOUR TIMES DAILY . lamoTRIgine (LAMICTAL) 100 MG tablet 1 (one) tablet (100 mg total) by Per G Tube route 2 (two) times a day Take with 150mg tablet . lamoTRIgine (LAMICTAL) 150 MG tablet 1 (one) tablet (150 mg total) by Per G Tube route 2 (two) times a day Take with 100mg tablet . levETIRAcetam (KEPPRA) 100 mg/mL solution Take 10 mL (1,000 mg total) by mouth 2 (two) times a day . loratadine (CLARITIN) 10 mg tablet 10 mg by G-tube route every morning . medroxyPROGESTERone (DEPO-PROVERA) 150 mg/mL Syrg INJECT 1ML INTRAMUSCULARLY EVERY 10 TO 13 WEEKS meropenem (MERREM) 50 mg/ml injection Infuse 0.5 g into a venous catheter . montelukast (SINGULAIR) 10 mg tablet 10 mg by Per G Tube route daily . multivitamin/iron/folic acid (CENTRUM ORAL) 10 mL by G-tube route every morning . omeprazole (PRILOSEC) 40 MG capsule 40 mg by G-tube route every morning . polyethylene glycol (MIRALAX) 17 gram powder 17 g by Per G Tube route every morning . promethazine (PHENERGAN) 12.5 MG suppository Insert 12.5 mg into the rectum every 6 (six) hours as needed for nausea. Review of Systems: The following system(s) were reviewed and pertinent findings noted: Constitutional:No fever, no weight loss Eyes:No diplopia ENT:No sinus drainage CV:No chest pain. No ankle swelling Resp:No dyspnea. No wheezing GI:No abdominal pain.No abdominal distention Endo:No polyuria Heme/lymphatic:No apparent lymphadenopathy Allergic/Immunologic:No hives Psych:No unusual mood swings All other systems reviewed and negative other than HPI Physical Examination: Vital Signs: BP 125/88 Pulse (!) 106 Temp 98.1 F (36.7 C) (Temporal) Resp 16 Ht 4' 5 Wt 38.6 kg (85 lb) SpO2 99% Comment: 2 L O2 BMI 21.28 kg/m General: Alert, cooperative, no distress, appears stated age Chronic contractures secondary to long standing CP. Head: Normocephalic, without obvious abnormality, atraumatic Eyes: PERRL, EOM's intact, Throat: Lips, mucosa, and tongue normal; teeth and gums normal Neck: Supple, symmetrical, trachea midline, no adenopathy; thyroid: no enlargement/tenderness/nodules; noJVD Back: Symmetric, no curvature, ROM normal, no CVA tenderness Lungs: Respirations unlabored,normal respiratory effort Chest Wall: No tenderness or deformity Cardiovascular: Regular rate and rhythm, Pulses 2+ and symmetric all extremities Abdomen: Soft, non-tender,no masses, no organomegaly Extremities: Normal, atraumatic, no cyanosis or edema Skin: Skin color, texture, turgor normal, no rashes or lesions Right ischial pressure ulcer, stage 3, no erythema or foul drainage, chronic appearance, likely scar and pseudobursa present. Imaging: EXAMINATION: CT ABDOMEN PELVIS WITH IV CONTRAST ONLY ADDITIONAL CLINICAL INFORMATION: Abdominal pain, acute, nonlocalized. COMPARISON: 01/10/2020. TECHNIQUE: Enhanced helical acquisition was obtained from the lung bases through the pubic symphysis followingadministration of bolus intravenous contrast (75 mL Isovue- 370). Dose reduction techniques were achieved by using automated exposure control and/or adjustment of mA and/or kV according to patient size and/or use of iterative reconstruction technique. FINDINGS: ABDOMINAL CT: The visualized lung bases and the pleural spaces are clear. There is beam-hardening artifact secondary to spinal rods. There is marked dextroconvex scoliotic curvature of the thoracic spine. There has been prior cholecystectomy. Gastrostomy tube appears appropriately positioned. The spleen, pancreas, adrenal glands are unremarkable in appearance. There are multiple subcentimeter nonobstructing right renal calculi. No enlarged lymph nodes are visualized within the abdomen. PELVIC CT: The appendix has a normal appearance. Sage catheter is present. There appears to be diffuse urinary bladder wall thickening, accentuated secondary to decompressed status of the urinary bladder. No ascites or focal intraperitoneal fluid collections are visualized. Numerous scattered air-fluid levels are present throughout the colon. No enlarged lymph nodes are visualized within the pelvis. IMPRESSION: 1. Sage catheter is present within decompressed urinary bladder. There appears to be diffuse urinary bladder wall thickening which appears to be accentuated secondary to the decompressed status of the urinary bladder. Recommend correlation for cystitis with urinalysis findings. 2. Numerous scattered air-fluid levels are present throughout the colon without evidence of bowel obstruction. No inflammatory changes are identified. 3. Appropriate position of the gastrostomy tube. 4. Normal appendix. Laboratory and Additional Data Reviewed: Laboratory 01/20/21 1:39 PM Radiology 01/20/21 1:39 PM Medications 01/20/21 1:39 PM Transcriptions 01/20/21 1:39 PM Assessment and Plan: 50 minutes were spent with the patient, of which 45 minutes were spent counseling and in coordination of care. 30 yof, with advanced CP, completely dependent and nonverbal, incontinent of urine and stool, PEG tube in place, presents with a very resourceful and caring mother, interested in having her right ischial pressure ulcer surgically corrected. We find her environment to be very supportive, and resourceful with the tools necessary to help off-load the patient, frequent turns, and supportive care. However, it is unclear what her nutritional status is, and she needs her urine and stool diverted away from the right ischial pressure ulcer, and any subsequent reconstructive surgery we may provide. As such, we will order albumin and prealbumin, as well as referrals to Dr. Wilder Cross general surgeon, for ostomy; and Dr. Bruno Salgado urologist, to be evaluated for suprabupic catheter. After she is healed for a few months from these procedures, she is to return to our wound care center with her motherfor re-evaluation and to discuss surgery to help close the ulcer. Diversion, off-loading, sound wound care, and good nutrition, may help this area close on its own. We'll see. I recommend follow-up in our wound care center 2-3 months after creation of ostomy and suprapubic catheter. documented in this [id number] Instructions* Patient Instructions* Kelly Enriqeuz RN - 01/13/2021 3:24 PM EDT The following Patient Instructions and Wound Care Orders are current as of this date. All previous orders/treatments should be discontinued. Wound Care Orders: Wound location: right ischial Clean with saline or soap and water May NOT shower Apply skin prep to periwound to protect skin from tape. Apply the following (OR EQUIVALENT): silvercell Cover with dry dressing Change every day May change outer dressing if it becomes soiled or saturated Aquacel ag and dry dressing in clinic today Per Verbal Order Read Back A referral was made to general surgery, to Dr Wilder Cross. His office will contact you to schedule anappointment. High Blood Pressure: If your blood pressure taken today is above 150/95, please contact your primary care physician to get further instructions. If you experience the following emergent symptoms; chest pain, shortness ofbreath, headache, dizziness, vision changes, unusual and/or excessive sweating or nausea vomiting -call 911 or go to the nearest emergency room. Bleeding: If your wound was debrided and continues to bleed after your appointment, apply direct pressure to the wound with a clean cloth or dressing for 10-20 minutes. If the bleeding does not stop, call [facility] [phone] or go to the Emergency Room. Signs/Symptoms of Infection: If you have any fever, chills, nausea, vomiting or increased odor, drainage, pain or redness to thewound, call [facility] at [phone]. If after hours, contact your family physician or go to the Emergency Room. Tips You can do at Home to Help Heal Your Wound Skin Care: Use apply moisturizing lotion to dry, intact skin, avoid getting between the toes. Apply skin sealant or barrier to protect the skin from too much moisture. Inspect skin (including feet) daily for redness, blisters, rash, cracks, or open areas. Incontinence Skin Care Quickly cleanse and gently pat dry after every incontinence episode or loose bowel movement to keeparea as clean and dry as possible. Use a barrier cream to protect skin as directed. Pressure Relief Instructions: Keep weight and pressure off your wound(s) and bony areas of the body (for example, heels, tail bone, hip, elbows, back of head). Reposition as instructed. Shift position in chair every 15 minutes.Turn every 2 hours while lying down. Specialty Bed: Alternating Air Mattress Wheelchair cushion: Roho. Use this wherever you are sitting. documented in this [id number] Instructions* Patient Instructions* Ruma Godwin CNP - 01/09/2021 10:22 AM EDT INTRATHECAL BACLOFEN SYSTEM INFORMATION FOR Claudine Joseph Severe Spasticity due to: CP Implanted: [address] Roxy RENE date: 28 months (March 2023) Synchromed I IPump Size: 40 mL Willard Location: 11 oclock Catheter Tip Placement: PLAN REGARDING INTRATHECAL BACLOFEN THERAPY First Medication Brand: LIORESAL Concentration: 2000 mcg/mL Total Daily Dose: 649.8 mcg/day 1. Pump Programming: Simple Continuous 2. Pump Esto Refill: The injection site was prepped sterilely, landmarks were identified, and the pump was accessed with a coring needle. Approximately 4(calculated 3.4) cc of clear, colorless fluid was removed from the reservoir. The reservoir was then refilled with 40 ml of 2000mcg/ml baclofen for intrathecal administration. No difficulties were noted, and the pressure was within acceptable limits. kit # 8566: concentration 2000 mcg/ml, volume 40 ml was used. 3. Programming Adjustments today: None; refill only 4. ITB system Procedures today: pump computer interrogation, pump computer reprogramming and pump reservoir refill 5. Last reservoir refill date: 01/09/21 6. Pump Low Esto Alarm Date: 05/05/21 7. Claudine Joseph and/or her caregivers have verbal consents to all of the ITB system adjustments and procedures performed today PLAN REGARDING ADJUNCTIVE SPASTICITY THERAPIES 1. Noxious stimulation worsens spasticity. This included when the weather is cold outside, urinary tract infections and other infections, pressure sores, poor seating or sleeping ergonomics, constipation and urinary retention. she is encouraged to report any of these symptoms. 2. We recommend practicing good spasticity hygiene: A. Stretch upon waking, partway through the day, and before bed every day B. Stay adequately hydrated C. Treat constipation, urinary retention, bladder infections D. Check dependant areas of the body every day for redness / skin breakdown E. Exercise! Movement is camejo. Try yoga, magan chi, or water aerobics. D. Stop to stretch during long periods of sitting (long car ride, business meeting) F. Don't get too cool. Cold often worsens spasticity. PLAN REGARDING FOLLOW UP 1. We will schedule follow up a week before her alarm date, which is 05/05/2021. 2. I strongly recommend that she keep an up-to-date emergency bottle of oral baclofen with her atall times to take for withdrawal symptoms. 3. I also recommend that she keep her [employer] identification card with our clinic contact information at all times. 4. [facility] Team can be reached for emergencies and after hours by calling the [facility] at . PATIENT AND CARE PROVIDER EDUCATION You can learn more about spasticity and ITB therapy at the following website: [email or web address] If you have a smart phone then we recommend you download the free pump partner application as well. It is a resource for ITB education and tracking your personalized therapy. SYNCHROMED II ITB SYSTEM The intrathecal baclofen pump system is the way our treatment team gives baclofen directly into thespinal fluid. The system consists of a catheter (a small, flexible tube) and a pump. The pump -- a round metal disc, about one inch thick and three inches in diameter -- is surgically placed under the skin of the abdomen near the waistline. The pump stores and releases prescribed amounts of medicine through the cathete directly to the spinal fluid. With a programmable pump, a tiny motor moves themedication from the pump reservoir through the catheter. Using an external it programmer analyst, your treatment team can make adjustments in the dose, rate, and timing of the medication. Continuously delivers baclofen in small doses directly to the spinal fluid, increasing the therapeutic benefits and causing fewer and less severe side effects than the oral medication. Patients with a pump must return to their doctor's office for pump refills and medication adjustments, typically every 1-3 months. ITB SYSTEM MAINTENANCE AND REPAIR The catheter may kink, break or dislodge in up to 10% of cases and would require a surgery to revise it. The Synchromed II pump requires replacement for end of battery life within 7 years. This will require a surgery. The catheter is not required to be replaced, just the pump. INTRATHECAL BACLOFEN WITHDRAWAL Signs and symptoms of baclofen withdrawal often include diffuse body itching, increased stiffness and fever. I have reminded her to take 20mg of oral baclofen and contact our office if she has these symptoms. she may need to be seen in the emergency department. The baclofen withdrawal syndrome can progress to include confusion, sedation and even coma. In severe cases baclofen withdrawal can lead to kidney damage, seizures and possibly . A lumbar puncture with an injection of 50mcg intrathecal baclofen in the emergency department is often the best treatment to address severe balcofen withdrawal symptoms. INTRATHECAL BACLOFEN OVERDOSE Signs and symptoms of baclofen overdose often include sedation and confusion and most commonly occur recently following an ITB refill/program adjustment. I recommend Claudine Joseph contactour office prompts if these symptoms occur. The baclofen overdose syndrome can progress to include coma, seizures, respiratory and cardiac depression and possibly . I have reminded her to contact our office and go to the emergency room if she experiences these symptoms. A high volume lumbar puncture (removing 40cc of both CSF and intrathecal baclofen) in the emergency department is often thebest treatment for severe baclofen overdose symptoms. ITB SYSTEM INFECTION Infection of the pump system can lead to meningitis (severe brain infection) and can be possibly fatal. Signs and symptoms of pump infection can include redness, swelling, or pain around the pump or surgical scar on the back. Fever and a stiff neck are also common. I recommend that Claudine Joseph go to the Emergency Department if she has any of signs/symptoms of pump infection. MRI SCANNING Synchromed II ITB pumps are MRI compatible including 3T strength scanners. The pump stops pumping temporarily when the patient is moved near the MRI machine. The pump automatically restarts once the patient moves away from the MRI machine. We follow a clinic best practice of interrogating the pump following MRI scans to ensure the ITB pump has restarted. This can often be arranged to be done by [employer] Conference And Event Organiser if scheduled during business hours. We recommend AGAINST any MRI scans scheduled outside of business hours. EDUCATION: HOT TUBs, STEAM ROOMS, SAUNAS AND TANNING BED We recommend patients avoid these, especially if over 102 degrees. Heating up your body causes the ITB pump to potential increase its flow rate, which could cause overdose/. EDUCATION: SCUBA DIVING We recommend that an ITB patient avoid depths below 33 feet (10 meters). Diving lower than this could permanently damage the pump. Also as you descend and the pressure around your body increases, pump flow can decrease. This could lead to baclofen withdrawal/. EDUCATION REGARDING DAYLIGHT SAVINGS TIME The clock inside the pump does not adjust for daylight savings time changes (spring forward and fall backwards). If you are on flex dosing or bolus dosing programming then your dosing will becomeshifted an hour, which may cause problems for the patient. The pump clock only corrects for daylight savings time after being interrogated by a it programmer analyst. The flex/bolus dosing patient should schedule a visit after a time change to reset their pump clocks. I spent 30 minutes face to face with the patient today. Over half the time was spent counseling regarding her spasticity as well as it's underlying medical condition, as well as her coordinating care.Thank you very much for allowing me to participate in this patient's care and please do not hesitate to contact me with questions or concerns. Sincerely, Ruma Godwin MS, BSN, ACNP-BC, CNRN Acute Care Nurse Practitioner [facility] [place] [address] [place] [address], [id number] [place] [address] Office [phone] documented in this [id number] History of Present illness Narrative* Ruma Godwin CNP - 01/09/2021 10:00 AM EDT [facility] [place] [facility]: Intrathecal Baclofen Therapy Progress Note 01/09/2021 CHIEF COMPLAINT Spasticity follow up from 09/19/2020 IMPRESSIONS AT LAST VISIT / INTERM HISTORY Claudine Joseph is a 30 y/o female with medically refractory, severe spasticity secondary to CP managed with intrathecal baclofen therapy. We refilled her pump and maintained her current dose. Based on today s history, physical examination and review of ITB telemetry, I feel her severe spasticity is under good control. Current ITB goals include: decrease cramps and spasms, spasticity related pains, loosen thelegs, loosen the arms, improve options for seating and positioning, help prevent contractures and bed sores, improve caregiver ease of care Other associated diagnoses / active problems for this visit include: weakness, spasticity, requireswheelchair / scooter for mobility, decubitus ulcer, nausea/vomiting. CONTEMOPORARY HISTORY Claudine presents with Mom Peg to clinic for ITB pump refill. Peg reports spasticity is under good control She is receiving IV antibiotics for osteomyelitis secondary to decubitus ulcer. OTHER RELEVANT HISTORY [facility] ROS - 01/09/21 0930 General Change in weight No Fever No Chills No Night Sweats No Cough No Shortness of Breath No Joint pain / swelling No Muscle pain / cramps No Chest pain No Palpitations No Nausea / Vomiting No Neurologic Double vision No Blurred / decreased vision No Difficulty with speech -- Non verbal Numbness / tingling No Painful skin sensations No Muscle weakness Yes Heat sensitivity Yes Motor fatigue Yes Incoordination/ poor balance -- Non wt bearing Difficulty walking -- Non wt bearing Recent Falls No Recent Urinary Tract Infections No Bowel complaints No Poor sleep Yes Headaches No Recent Seizures Yes She has a past medical history of Acute respiratory failure ([facility]), Allergic rhinitis, Anoxic brain damage ([facility]), Aspiration, chronic pulmonary, Bowel and bladder incontinence, Cerebral palsy ([facility]), Chronic osteomyelitis of pelvic region, right ([facility]) (2018), Chronic respiratory failure with hypoxia ([facility]), Constipation, Epilepsy ([facility]), GERD (gastroesophageal reflux disease), MRSA (methicillin resistant Staphylococcus aureus) (04/2016), Muscle spasticity, Nonverbal, PEG (percutaneous endoscopic gastrostomy) status ([facility]), Presence of intrathecal baclofen pump (1999), Restrictive lung disease due to kyphoscoliosis, Urine retention, and Wheelchair bound. She has a past surgical history that includes Peg Tube Insertion; Baclofen pump implantation; Salivary gland surgery; Back surgery (1999); Cholecystectomy; Pain Pump Revision (N/A, 07/27/2016); Laminectomy Decomp Thoracic Multi Level (N/A, 07/27/2016); and Incision And Drainage Lower Extremity (Right, 12/02/2018). She reports that she has never smoked. She has never used smokeless tobacco. She reports that she does not drink alcohol or use drugs. Social History Social History Narrative Not on file She She was adopted. Family history is unknown by patient. Allergies Allergen Reactions Levaquin [Levofloxacin] Rash, flushing with RUE arm swelling. Augmentin [Amoxicillin-Pot Clavulanate] Rash Per mother- tolerates Zosyn, unable to tolerate amoxil (blisters upper extremity) Lactose Intolerance [Lactase] Penicillins Other (See Comments) Blisters- amoxil Ragweed Unknown She has a current medication list which includes the following prescription(s): acetaminophen, epidiolex, cholecalciferol (vitamin d3), diazepam, valtoco, fluticasone propionate, guaifenesin, ipratropium, lamotrigine, lamotrigine, levetiracetam, loratadine, medroxyprogesterone, meropenem, metoprolol succinate, montelukast, multivitamin/iron/folic acid, omeprazole, polyethylene glycol, promethazine, and doxycycline hyclate. PHYSICAL EXAMINATION Vital Signs: Blood pressure 105/75, pulse (!) 111, weight 38.6 kg (85 lb). General Appearance: in no apparent distress, well nourished, conversant, cooperative, in no apparent distress Pysch: non verbal NEUROLOGICAL EXAMINATION Mental Status is awake and tracking examiner, non verbal Modified Estefani Score: EE EF Hip add KE KF DF PF Right 2* 1 0 0 Left 1* 0 0 0 * limited ROM contractions at wrists, elbows and knees. Wheelchair bound ITB TELEMETRY and OTHER DATA I have independently reviewed the ITB pump system telemetry. ASSESSMENT Claudine Joseph is a 30 y/o female with medically refractory, severe spasticity secondaryto CP managed with intrathecal baclofen therapy. Claudine is receiving IV antibiotics for osteomyelitis secondary to decubitus ulcer. We refilled her pump and maintained her current dose. Based on today s history, physical examination and review of ITB telemetry, I feel her severe spasticity is under good control. Current ITB goals include: decrease cramps and spasms, spasticity related pains, loosen thelegs, loosen the arms, improve options for seating and positioning, help prevent contractures and bed sores, improve caregiver ease of care Other associated diagnoses / active problems for this visit include: weakness, spasticity, requireswheelchair / scooter for mobility, decubitus ulcer. 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 Roxy RENE date: 28 months (March 2023) Synchromed I IPump Size: 40 mL Willard Location: 11 oclock Catheter Tip Placement: PLAN REGARDING INTRATHECAL BACLOFEN THERAPY First Medication Brand: LIORESAL Concentration: 2000 mcg/mL Total Daily Dose: 649.8 mcg/day 1. Pump Programming: Simple Continuous 2. Pump Esto Refill: The injection site was prepped sterilely, landmarks were identified, and the pump was accessed with a coring needle. Approximately 4(calculated 3.4) cc of clear, colorless fluid was removed from the reservoir. The reservoir was then refilled with 40 ml of 2000mcg/ml baclofen for intrathecal administration. No difficulties were noted, and the pressure was within acceptable limits. kit # 8566: concentration 2000 mcg/ml, volume 40 ml was used. 3. Programming Adjustments today: None; refill only 4. ITB system Procedures today: pump computer interrogation, pump computer reprogramming and pump reservoir refill 5. Last reservoir refill date: 01/09/21 6. Pump Low Esto Alarm Date: 05/05/21 7. Claudine Joseph and/or her caregivers have verbal consents to all of the ITB system adjustments and procedures performed today PLAN REGARDING ADJUNCTIVE SPASTICITY THERAPIES 1. Noxious stimulation worsens spasticity. This included when the weather is cold outside, urinary tract infections and other infections, pressure sores, poor seating or sleeping ergonomics, constipation and urinary retention. she is encouraged to report any of these symptoms. 2. We recommend practicing good spasticity hygiene: A. Stretch upon waking, partway through the day, and before bed every day B. Stay adequately hydrated C. Treat constipation, urinary retention, bladder infections D. Check dependant areas of the body every day for redness / skin breakdown E. Exercise! Movement is camejo. Try yoga, magan chi, or water aerobics. D. Stop to stretch during long periods of sitting (long car ride, business meeting) F. Don't get too cool. Cold often worsens spasticity. PLAN REGARDING FOLLOW UP 1. We will schedule follow up a week before her alarm date, which is 05/05/2021. 2. I strongly recommend that she keep an up-to-date emergency bottle of oral baclofen with her atall times to take for withdrawal symptoms. 3. I also recommend that she keep her [employer] identification card with our clinic contact information at all times. 4. [facility] Team can be reached for emergencies and after hours by calling the [facility] at . PATIENT AND CARE PROVIDER EDUCATION You can learn more about spasticity and ITB therapy at the following website: [email or web address] If you have a smart phone then we recommend you download the free pump partner application as well. It is a resource for ITB education and tracking your personalized therapy. SYNCHROMED II ITB SYSTEM The intrathecal baclofen pump system is the way our treatment team gives baclofen directly into thespinal fluid. The system consists of a catheter (a small, flexible tube) and a pump. The pump -- a round metal disc, about one inch thick and three inches in diameter -- is surgically placed under the skin of the abdomen near the waistline. The pump stores and releases prescribed amounts of medicine through the cathete directly to the spinal fluid. With a programmable pump, a tiny motor moves themedication from the pump reservoir through the catheter. Using an external it programmer analyst, your treatment team can make adjustments in the dose, rate, and timing of the medication. Continuously delivers baclofen in small doses directly to the spinal fluid, increasing the therapeutic benefits and causing fewer and less severe side effects than the oral medication. Patients with a pump must return to their doctor's office for pump refills and medication adjustments, typically every 1-3 months. ITB SYSTEM MAINTENANCE AND REPAIR The catheter may kink, break or dislodge in up to 10% of cases and would require a surgery to revise it. The Synchromed II pump requires replacement for end of battery life within 7 years. This will require a surgery. The catheter is not required to be replaced, just the pump. INTRATHECAL BACLOFEN WITHDRAWAL Signs and symptoms of baclofen withdrawal often include diffuse body itching, increased stiffness and fever. I have reminded her to take 20mg of oral baclofen and contact our office if she has these symptoms. she may need to be seen in the emergency department. The baclofen withdrawal syndrome can progress to include confusion, sedation and even coma. In severe cases baclofen withdrawal can lead to kidney damage, seizures and possibly . A lumbar puncture with an injection of 50mcg intrathecal baclofen in the emergency department is often the best treatment to address severe balcofen withdrawal symptoms. INTRATHECAL BACLOFEN OVERDOSE Signs and symptoms of baclofen overdose often include sedation and confusion and most commonly occur recently following an ITB refill/program adjustment. I recommend Claudine Joseph contactour office prompts if these symptoms occur. The baclofen overdose syndrome can progress to include coma, seizures, respiratory and cardiac depression and possibly . I have reminded her to contact our office and go to the emergency room if she experiences these symptoms. A high volume lumbar puncture (removing 40cc of both CSF and intrathecal baclofen) in the emergency department is often thebest treatment for severe baclofen overdose symptoms. ITB SYSTEM INFECTION Infection of the pump system can lead to meningitis (severe brain infection) and can be possibly fatal. Signs and symptoms of pump infection can include redness, swelling, or pain around the pump or surgical scar on the back. Fever and a stiff neck are also common. I recommend that Claudine Joseph go to the Emergency Department if she has any of signs/symptoms of pump infection. MRI SCANNING Synchromed II ITB pumps are MRI compatible including 3T strength scanners. The pump stops pumping temporarily when the patient is moved near the MRI machine. The pump automatically restarts once the patient moves away from the MRI machine. We follow a clinic best practice of interrogating the pump following MRI scans to ensure the ITB pump has restarted. This can often be arranged to be done by [employer] Conference And Event Organiser if scheduled during business hours. We recommend AGAINST any MRI scans scheduled outside of business hours. EDUCATION: HOT TUBs, STEAM ROOMS, SAUNAS AND TANNING BED We recommend patients avoid these, especially if over 102 degrees. Heating up your body causes the ITB pump to potential increase its flow rate, which could cause overdose/. EDUCATION: SCUBA DIVING We recommend that an ITB patient avoid depths below 33 feet (10 meters). Diving lower than this could permanently damage the pump. Also as you descend and the pressure around your body increases, pump flow can decrease. This could lead to baclofen withdrawal/. EDUCATION REGARDING DAYLIGHT SAVINGS TIME The clock inside the pump does not adjust for daylight savings time changes (spring forward and fall backwards). If you are on flex dosing or bolus dosing programming then your dosing will becomeshifted an hour, which may cause problems for the patient. The pump clock only corrects for daylight savings time after being interrogated by a it programmer analyst. The flex/bolus dosing patient should schedule a visit after a time change to reset their pump clocks. I spent 30 minutes face to face with the patient today. Over half the time was spent counseling regarding her spasticity as well as it's underlying medical condition, as well as her coordinating care.Thank you very much for allowing me to participate in this patient's care and please do not hesitate to contact me with questions or concerns. Sincerely, Ruma Godwin MS, BSN, ACNP-BC, CNRN Acute Care Nurse Practitioner [facility] [address] [place], [address] [place] [address] Office [phone] [facility] Diagnosis Spasticity- Primary Abnormal involuntary movements [facility] [place] [facility]* Diagnosis Restrictive lung disease due to kyphoscoliosis Aspiration, chronic pulmonary, initial encounter [facility]* Diagnosis Other cerebral palsy (HCC)- Primary Pressure injury of right ischium, stage 3 (HCC) Other urinary incontinence Incontinence of feces, unspecified fecal incontinence type [facility]* Diagnosis Pressure injury of right ischium, stage 3 (HCC)- Primary [facility]* Diagnosis Pressure injury of right ischium, stage 3 (HCC)- Primary Other cerebral palsy (HCC) Other urinary incontinence Incontinence of feces, unspecified fecal incontinence type Encounter to discuss treatment options [facility] [place] [facility]* Diagnosis Pressure injury of right ischium, stage 3 (HCC)- Primary Pressure injury of sacral region, stage 3 (HCC)- Primary [facility]* Diagnosis Pressure injury of right ischium, stage 3 (HCC)- Primary Cerebral palsy, unspecified type (HCC)- Primary Stage II pressure ulcer of right buttock (HCC) [facility]* Diagnosis Pressure injury of right ischium, stage 3 (HCC)- Primary Pressure injury of right ischium, stage 3 (HCC)- Primary [facility]* Diagnosis Intractable symptomatic generalized epilepsy (HCC) [facility]* Diagnosis Pressure injury of right ischium, stage 3 (HCC)- Primary Intractable symptomatic generalized epilepsy (HCC) [facility]* Diagnosis Pressure injury of right ischium, stage 3 (HCC)- Primary Spasticity- Primary Abnormal involuntary movements [facility]* Diagnosis Pressure injury of right ischium, stage 3 (HCC)- Primary 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) [facility]* Diagnosis Pressure injury of right ischium, 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)- Primary Unspecified infantile cerebral palsy [facility]* Diagnosis Pressure injury of right ischium, 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)- Primary Unspecified infantile cerebral palsy [facility]* Diagnosis Pressure injury of right ischium, 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)- Primary Unspecified infantile cerebral palsy [facility]* Diagnosis Pressure injury of right ischium, stage 3 (HCC)- Primary Intractable symptomatic generalized epilepsy (HCC) [facility]* Diagnosis Pressure injury of right ischium, 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)- Primary Unspecified infantile cerebral palsy [facility]* Diagnosis Pressure injury of right ischium, stage 3 (HCC)- Primary Cerebral palsy, unspecified type (HCC) Stage II pressure ulcer of right buttock (HCC) [facility]* Diagnosis Pressure injury of right ischium, 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) S/P percutaneous endoscopic gastrostomy (PEG) tube placement (HCC) Pain around percutaneous endoscopic gastrostomy (PEG) tube site, initial encounter Spasticity Abnormal involuntary movements Hypoxia Hypoxemia [facility]* Diagnosis 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) [facility]* Diagnosis 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HCC)- Primary Unspecified infantile cerebral palsy [facility]* Diagnosis Spasticity- Primary Abnormal involuntary movements Cerebral palsy, unspecified type (HCC) [facility]* Diagnosis 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HCC)- Primary Unspecified infantile cerebral palsy [facility]* Diagnosis 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HCC)- Primary Unspecified infantile cerebral palsy [facility]* Diagnosis Intractable symptomatic generalized epilepsy (HCC) [facility]* Diagnosis 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HCC) Unspecified infantile cerebral palsy [facility]* Diagnosis Intrathecal pump infection, initial encounter (HCC)- Primary Visit for wound check Presence of intrathecal baclofen pump Muscle spasticity Spasm of muscle 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HCC) Unspecified infantile cerebral palsy Seizure (HCC) Other convulsions Intrathecal pump infection, initial encounter (HCC) Breakdown (mechanical) of other nervous system device, implant or graft, sequela 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HCC) Unspecified infantile cerebral palsy S/P percutaneous endoscopic gastrostomy (PEG) tube placement (HCC) [facility]* Diagnosis 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HCC) Unspecified infantile cerebral palsy [facility]* Diagnosis Intractable symptomatic generalized epilepsy (HCC) [facility]* Diagnosis Intractable symptomatic generalized epilepsy (HCC) [facility]* Diagnosis Spasticity- Primary Abnormal involuntary movements Cerebral palsy, unspecified type (HCC) [facility]* Diagnosis Spasticity- Primary Abnormal involuntary movements Cerebral palsy, unspecified type (HCC) Cervical dystonia Spasmodic torticollis [facility]* Diagnosis 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HCC)- Primary Unspecified infantile cerebral palsy Spasm of muscle [facility]* Diagnosis Spasticity- Primary Abnormal involuntary movements Cerebral palsy, unspecified type (HCC) [facility]* Diagnosis Spasticity- Primary Abnormal involuntary movements Cerebral palsy, unspecified type (HCC) [facility]* Diagnosis Intractable symptomatic generalized epilepsy (HCC) [facility]* Diagnosis Cervical dystonia Spasmodic torticollis [facility]* Diagnosis Spasticity- Primary Abnormal involuntary movements 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HCC) Unspecified infantile cerebral palsy [facility]* Diagnosis Intractable symptomatic generalized epilepsy (HCC) [facility]* Diagnosis Intractable symptomatic generalized epilepsy (HCC)- Primary [facility]* Diagnosis 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HCC) Unspecified infantile cerebral palsy [facility]* Diagnosis 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) 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HCC) Unspecified infantile cerebral palsy Hypoxia Hypoxemia [facility]* Diagnosis Spasticity- Primary Abnormal involuntary movements [facility]* Diagnosis Restrictive lung disease due to scoliosis- Primary Chronic pulmonary aspiration, sequela [facility]* Diagnosis Spasticity- Primary Abnormal involuntary movements 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HCC) Unspecified infantile cerebral palsy [facility]* Diagnosis Spasticity Abnormal involuntary movements 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HCC) Unspecified infantile cerebral palsy [facility]* Diagnosis Intractable symptomatic generalized epilepsy (HCC) [facility]* Diagnosis Muscle spasticity- Primary Spasm of muscle Spasticity Abnormal involuntary movements [facility]* Diagnosis Muscle spasticity- Primary Spasm of muscle Spasticity Abnormal involuntary movements [facility]* Diagnosis Spasticity Abnormal involuntary movements 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HCC) Unspecified infantile cerebral palsy [facility]* Diagnosis Muscle spasticity- Primary Spasm of muscle Spasticity Abnormal involuntary movements [facility]* Diagnosis Intractable symptomatic generalized epilepsy (HCC)- Primary Mood disturbance [facility]* Diagnosis 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) [facility]* Diagnosis Spasticity- Primary Abnormal involuntary movements 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HCC) Unspecified infantile cerebral palsy [facility]* Diagnosis Spasticity- Primary Abnormal involuntary movements 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HCC) Unspecified infantile cerebral palsy [facility]* Diagnosis Restrictive lung disease due to kyphoscoliosis- Primary Chronic pulmonary aspiration, sequela [facility]* Diagnosis 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HCC) Unspecified infantile cerebral palsy [facility]* Diagnosis 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HCC) Unspecified infantile cerebral palsy [facility]* Diagnosis 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HCC) Unspecified infantile cerebral palsy [facility]* Diagnosis Spasticity- Primary Abnormal involuntary movements Pain Generalized pain [facility]* Diagnosis Intractable symptomatic generalized epilepsy (HCC)- Primary Seizure disorder (HCC) Unspecified epilepsy without mention of intractable epilepsy 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HCC) Unspecified infantile cerebral palsy Encephalopathy Unspecified encephalopathy Hypoxia Hypoxemia [facility]* Diagnosis Aspiration pneumonia, unspecified aspiration pneumonia type, unspecified laterality, unspecified part of lung (HCC) SIRS (systemic inflammatory response syndrome) (HCC) Systemic inflammatory response syndrome, unspecified Acute respiratory failure with hypoxia (HCC) Pneumonia of both lungs due to infectious organism, unspecified part of lung Sinus tachycardia Other specified cardiac dysrhythmias Agitation requiring sedation protocol Cerebral palsy (HCC) Unspecified infantile cerebral palsy Seizure disorder (HCC) Unspecified epilepsy without mention of intractable epilepsy Abdominal distention Flatulence, eructation, and gas pain Difficulty walking Difficulty in walking 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, unspecified Gastroesophageal reflux disease with esophagitis Artificial opening status 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HCC) Generalized 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 intractable epilepsy Muscle spasticity Spasm of muscle 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 Torticollis Torticollis, unspecified Abdominal distention Flatulence, eructation, and gas pain 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[facility])- Primary 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 Pneumonia due to infectious organism, unspecified laterality, unspecified part of lung Tachycardia- Primary Unspecified tachycardia Generalized edema Edema Sepsis, due to unspecified organism- Primary Hypernatremia Hyperosmolality and/or hypernatremia Acute UTI Urinary tract infection, site not specified Pressure injury of skin of sacral region, unspecified injury stage Decubitus ulcer of ischial area, right, stage IV ([facility]) Sacral decubitus ulcer Pressure ulcer, lower back Intrathecal pump infection, initial encounter ([facility])- Primary Visit for wound check Presence of intrathecal baclofen pump Muscle spasticity Spasm of muscle 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 Seizure ([facility]) Other convulsions Intrathecal pump infection, initial encounter ([facility]) Breakdown (mechanical) of other nervous system device, implant or graft, sequela 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 S/P percutaneous endoscopic gastrostomy (PEG) tube placement ([facility]) Intractable symptomatic generalized epilepsy ([facility])- Primary [facility]* Diagnosis Aspiration pneumonia, unspecified aspiration pneumonia type, unspecified laterality, unspecified part of lung (HCC) SIRS (systemic inflammatory response syndrome) ([facility]) Systemic inflammatory response syndrome, unspecified Acute respiratory failure with hypoxia ([facility]) Pneumonia of both lungs due to infectious organism, unspecified part of lung Sinus tachycardia Other specified cardiac dysrhythmias Agitation requiring sedation protocol Cerebral palsy ([facility]) Unspecified infantile cerebral palsy Seizure disorder ([facility]) Unspecified epilepsy without mention of intractable epilepsy Abdominal distention Flatulence, eructation, and gas pain Difficulty walking Difficulty in walking 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[facility]) 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, unspecified Gastroesophageal reflux disease with esophagitis Artificial opening status 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 intractable epilepsy Muscle spasticity Spasm of muscle 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 Torticollis Torticollis, unspecified Abdominal distention Flatulence, eructation, and gas pain 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[facility])- Primary Congenital quadriplegia 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 intractable epilepsy Pneumonia due to infectious organism, unspecified laterality, unspecified part of lung Tachycardia- Primary Unspecified tachycardia Generalized edema Edema Sepsis, due to unspecified organism- Primary Hypernatremia Hyperosmolality and/or hypernatremia Acute UTI Urinary tract infection, site not specified Pressure injury of skin of sacral region, unspecified injury stage Decubitus ulcer of ischial area, right, stage IV ([facility]) Sacral decubitus ulcer Pressure ulcer, lower back Intrathecal pump infection, initial encounter ([facility])- Primary Visit for wound check Presence of intrathecal baclofen pump Muscle spasticity Spasm of muscle 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 Seizure ([facility]) Other convulsions Intrathecal pump infection, initial encounter ([facility]) Breakdown (mechanical) of other nervous system device, implant or graft, sequela 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 S/P percutaneous endoscopic gastrostomy (PEG) tube placement ([facility]) Seizure disorder ([facility]) Unspecified epilepsy without mention of intractable epilepsy documented in this encounter [facility] note* Diagnosis Aspiration pneumonia, unspecified aspiration pneumonia type, unspecified laterality, unspecified part of lung ([facility]) SIRS (systemic inflammatory response syndrome) ([facility]) Systemic inflammatory response syndrome, unspecified Acute respiratory failure with hypoxia ([facility]) Pneumonia of both lungs due to infectious organism, unspecified part of lung Sinus tachycardia Other specified cardiac dysrhythmias Agitation requiring sedation protocol Cerebral palsy ([facility]) Unspecified infantile cerebral palsy Seizure disorder ([facility]) Unspecified epilepsy without mention of intractable epilepsy Abdominal distention Flatulence, eructation, and gas pain Difficulty walking Difficulty in walking 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, unspecified Gastroesophageal reflux disease with esophagitis Artificial opening status 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HCC) Generalized 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 intractable epilepsy Muscle spasticity Spasm of muscle 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HCC) Unspecified infantile cerebral palsy Torticollis Torticollis, unspecified Abdominal distention Flatulence, eructation, and gas pain 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 Pneumonia due to infectious organism, unspecified laterality, unspecified part of lung Tachycardia- Primary Unspecified tachycardia Generalized edema Edema Sepsis, due to unspecified organism- Primary Hypernatremia Hyperosmolality and/or hypernatremia Acute UTI Urinary tract infection, site not specified Pressure injury of skin of sacral region, unspecified injury stage Decubitus ulcer of ischial area, right, stage IV ([facility]) Sacral decubitus ulcer Pressure ulcer, lower back Intrathecal pump infection, initial encounter ([facility])- Primary Visit for wound check Presence of intrathecal baclofen pump Muscle spasticity Spasm of muscle 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 Seizure ([facility]) Other convulsions Intrathecal pump infection, initial encounter ([facility]) Breakdown (mechanical) of other nervous system device, implant or graft, sequela 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 S/P percutaneous endoscopic gastrostomy (PEG) tube placement ([facility]) Intractable symptomatic generalized epilepsy ([facility])- Primary 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 Acute on chronic respiratory failure with hypoxia and hypercapnia ([facility]) documented in this encounter [facility] note* Diagnosis Aspiration pneumonia, unspecified aspiration pneumonia type, unspecified laterality, unspecified part of lung (HCC) SIRS (systemic inflammatory response syndrome) ([facility]) Systemic inflammatory response syndrome, unspecified Acute respiratory failure with hypoxia ([facility]) Pneumonia of both lungs due to infectious organism, unspecified part of lung Sinus tachycardia Other specified cardiac dysrhythmias Agitation requiring sedation protocol Cerebral palsy (HCC) Unspecified infantile cerebral palsy Seizure disorder (HCC) Unspecified epilepsy without mention of intractable epilepsy Abdominal distention Flatulence, eructation, and gas pain Difficulty walking Difficulty in walking 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, unspecified Gastroesophageal reflux disease with esophagitis Artificial opening status 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HCC) Generalized 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 intractable epilepsy Muscle spasticity Spasm of muscle 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HCC) Unspecified infantile cerebral palsy Torticollis Torticollis, unspecified Abdominal distention Flatulence, eructation, and gas pain 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 Pneumonia due to infectious organism, unspecified laterality, unspecified part of lung Tachycardia- Primary Unspecified tachycardia Generalized edema Edema Sepsis, due to unspecified organism- Primary Hypernatremia Hyperosmolality and/or hypernatremia Acute UTI Urinary tract infection, site not specified Pressure injury of skin of sacral region, unspecified injury stage Decubitus ulcer of ischial area, right, stage IV ([facility]) Sacral decubitus ulcer Pressure ulcer, lower back Intrathecal pump infection, initial encounter ([facility])- Primary Visit for wound check Presence of intrathecal baclofen pump Muscle spasticity Spasm of muscle 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 Seizure ([facility]) Other convulsions Intrathecal pump infection, initial encounter ([facility]) Breakdown (mechanical) of other nervous system device, implant or graft, sequela 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 S/P percutaneous endoscopic gastrostomy (PEG) tube placement ([facility]) Intractable symptomatic generalized epilepsy ([facility])- Primary Seizure disorder ([facility]) Unspecified epilepsy without mention of intractable epilepsy Acute encephalopathy 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HCC) Congenital quadriplegia Muscle spasticity Spasm of muscle Hypoxia Hypoxemia documented in this encounter [facility] [place] [facility]* Diagnosis Aspiration pneumonia, unspecified aspiration pneumonia type, unspecified laterality, unspecified part of lung (HCC) SIRS (systemic inflammatory response syndrome) ([facility]) Systemic inflammatory response syndrome, unspecified Acute respiratory failure with hypoxia ([facility]) Pneumonia of both lungs due to infectious organism, unspecified part of lung Sinus tachycardia Other specified cardiac dysrhythmias Agitation requiring sedation protocol Cerebral palsy (HCC) Unspecified infantile cerebral palsy Seizure disorder (HCC) Unspecified epilepsy without mention of intractable epilepsy Abdominal distention Flatulence, eructation, and gas pain Difficulty walking Difficulty in walking 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, unspecified Gastroesophageal reflux disease with esophagitis Artificial opening status 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HCC) Generalized 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 intractable epilepsy Muscle spasticity Spasm of muscle 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 Torticollis Torticollis, unspecified Abdominal distention Flatulence, eructation, and gas pain 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 Pneumonia due to infectious organism, unspecified laterality, unspecified part of lung Tachycardia- Primary Unspecified tachycardia Generalized edema Edema Sepsis, due to unspecified organism- Primary Hypernatremia Hyperosmolality and/or hypernatremia Acute UTI Urinary tract infection, site not specified Pressure injury of skin of sacral region, unspecified injury stage Decubitus ulcer of ischial area, right, stage IV ([facility]) Sacral decubitus ulcer Pressure ulcer, lower back Intrathecal pump infection, initial encounter ([facility])- Primary Visit for wound check Presence of intrathecal baclofen pump Muscle spasticity Spasm of muscle 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 Seizure ([facility]) Other convulsions Intrathecal pump infection, initial encounter ([facility]) Breakdown (mechanical) of other nervous system device, implant or graft, sequela 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 S/P percutaneous endoscopic gastrostomy (PEG) tube placement ([facility]) Spasticity- Primary Abnormal involuntary movements documented in this encounter [facility] note* Diagnosis Aspiration pneumonia, unspecified aspiration pneumonia type, unspecified laterality, unspecified part of lung ([facility]) SIRS (systemic inflammatory response syndrome) ([facility]) Systemic inflammatory response syndrome, unspecified Acute respiratory failure with hypoxia ([facility]) Pneumonia of both lungs due to infectious organism, unspecified part of lung Sinus tachycardia Other specified cardiac dysrhythmias Agitation requiring sedation protocol Cerebral palsy ([facility]) Unspecified infantile cerebral palsy Seizure disorder ([facility]) Unspecified epilepsy without mention of intractable epilepsy Abdominal distention Flatulence, eructation, and gas pain Difficulty walking Difficulty in walking 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, unspecified Gastroesophageal reflux disease with esophagitis Artificial opening status 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HCC) Generalized 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 intractable epilepsy Muscle spasticity Spasm of muscle 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 Torticollis Torticollis, unspecified Abdominal distention Flatulence, eructation, and gas pain 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[facility])- Primary 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 Pneumonia due to infectious organism, unspecified laterality, unspecified part of lung Tachycardia- Primary Unspecified tachycardia Generalized edema Edema Sepsis, due to unspecified organism- Primary Hypernatremia Hyperosmolality and/or hypernatremia Acute UTI Urinary tract infection, site not specified Pressure injury of skin of sacral region, unspecified injury stage Decubitus ulcer of ischial area, right, stage IV ([facility]) Sacral decubitus ulcer Pressure ulcer, lower back Intrathecal pump infection, initial encounter ([facility])- Primary Visit for wound check Presence of intrathecal baclofen pump Muscle spasticity Spasm of muscle 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 Seizure ([facility]) Other convulsions Intrathecal pump infection, initial encounter ([facility]) Breakdown (mechanical) of other nervous system device, implant or graft, sequela 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 S/P percutaneous endoscopic gastrostomy (PEG) tube placement ([facility]) Spasticity [R25.2]- Primary Abnormal involuntary movements 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 documented in this encounter [facility] note* Diagnosis Aspiration pneumonia, unspecified aspiration pneumonia type, unspecified laterality, unspecified part of lung ([facility]) SIRS (systemic inflammatory response syndrome) ([facility]) Systemic inflammatory response syndrome, unspecified Acute respiratory failure with hypoxia ([facility]) Pneumonia of both lungs due to infectious organism, unspecified part of lung Sinus tachycardia Other specified cardiac dysrhythmias Agitation requiring sedation protocol Cerebral palsy ([facility]) Unspecified infantile cerebral palsy Seizure disorder ([facility]) Unspecified epilepsy without mention of intractable epilepsy Abdominal distention Flatulence, eructation, and gas pain Difficulty walking Difficulty in walking 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, unspecified Gastroesophageal reflux disease with esophagitis Artificial opening status 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HCC) Generalized 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 intractable epilepsy Muscle spasticity Spasm of muscle 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 Torticollis Torticollis, unspecified Abdominal distention Flatulence, eructation, and gas pain 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[facility])- Primary 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 Pneumonia due to infectious organism, unspecified laterality, unspecified part of lung Tachycardia- Primary Unspecified tachycardia Generalized edema Edema Sepsis, due to unspecified organism- Primary Hypernatremia Hyperosmolality and/or hypernatremia Acute UTI Urinary tract infection, site not specified Pressure injury of skin of sacral region, unspecified injury stage Decubitus ulcer of ischial area, right, stage IV ([facility]) Sacral decubitus ulcer Pressure ulcer, lower back Intrathecal pump infection, initial encounter ([facility])- Primary Visit for wound check Presence of intrathecal baclofen pump Muscle spasticity Spasm of muscle 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 Seizure ([facility]) Other convulsions Intrathecal pump infection, initial encounter ([facility]) Breakdown (mechanical) of other nervous system device, implant or graft, sequela 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 S/P percutaneous endoscopic gastrostomy (PEG) tube placement ([facility]) Spasticity [R25.2]- Primary Abnormal involuntary movements 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 [facility] [place] [facility]* Diagnosis Aspiration pneumonia, unspecified aspiration pneumonia type, unspecified laterality, unspecified part of lung ([facility]) SIRS (systemic inflammatory response syndrome) ([facility]) Systemic inflammatory response syndrome, unspecified Acute respiratory failure with hypoxia ([facility]) Pneumonia of both lungs due to infectious organism, unspecified part of lung Sinus tachycardia Other specified cardiac dysrhythmias Agitation requiring sedation protocol Cerebral palsy ([facility]) Unspecified infantile cerebral palsy Seizure disorder ([facility]) Unspecified epilepsy without mention of intractable epilepsy Abdominal distention Flatulence, eructation, and gas pain Difficulty walking Difficulty in walking 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[facility]) 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, unspecified Gastroesophageal reflux disease with esophagitis Artificial opening status 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 intractable epilepsy Muscle spasticity Spasm of muscle 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 Torticollis Torticollis, unspecified Abdominal distention Flatulence, eructation, and gas pain 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[facility])- Primary 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 Pneumonia due to infectious organism, unspecified laterality, unspecified part of lung Tachycardia- Primary Unspecified tachycardia Generalized edema Edema Sepsis, due to unspecified organism- Primary Hypernatremia Hyperosmolality and/or hypernatremia Acute UTI Urinary tract infection, site not specified Pressure injury of skin of sacral region, unspecified injury stage Decubitus ulcer of ischial area, right, stage IV ([facility]) Sacral decubitus ulcer Pressure ulcer, lower back Intrathecal pump infection, initial encounter ([facility])- Primary Visit for wound check Presence of intrathecal baclofen pump Muscle spasticity Spasm of muscle 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HCC) Unspecified infantile cerebral palsy Seizure ([facility]) Other convulsions Intrathecal pump infection, initial encounter ([facility]) Breakdown (mechanical) of other nervous system device, implant or graft, sequela 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 S/P percutaneous endoscopic gastrostomy (PEG) tube placement ([facility]) Intractable symptomatic generalized epilepsy ([facility]) documented in this encounter [facility] note* Diagnosis Aspiration pneumonia, unspecified aspiration pneumonia type, unspecified laterality, unspecified part of lung ([facility]) SIRS (systemic inflammatory response syndrome) ([facility]) Systemic inflammatory response syndrome, unspecified Acute respiratory failure with hypoxia ([facility]) Pneumonia of both lungs due to infectious organism, unspecified part of lung Sinus tachycardia Other specified cardiac dysrhythmias Agitation requiring sedation protocol Cerebral palsy ([facility]) Unspecified infantile cerebral palsy Seizure disorder ([facility]) Unspecified epilepsy without mention of intractable epilepsy Abdominal distention Flatulence, eructation, and gas pain Difficulty walking Difficulty in walking 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[facility]) 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, unspecified Gastroesophageal reflux disease with esophagitis Artificial opening status 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 intractable epilepsy Muscle spasticity Spasm of muscle 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 Torticollis Torticollis, unspecified Abdominal distention Flatulence, eructation, and gas pain 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[facility])- Primary 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 Pneumonia due to infectious organism, unspecified laterality, unspecified part of lung Tachycardia- Primary Unspecified tachycardia Generalized edema Edema Sepsis, due to unspecified organism- Primary Hypernatremia Hyperosmolality and/or hypernatremia Acute UTI Urinary tract infection, site not specified Pressure injury of skin of sacral region, unspecified injury stage Decubitus ulcer of ischial area, right, stage IV ([facility]) Sacral decubitus ulcer Pressure ulcer, lower back Intrathecal pump infection, initial encounter (HCC)- Primary Visit for wound check Presence of intrathecal baclofen pump Muscle spasticity Spasm of muscle 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HCC) Unspecified infantile cerebral palsy Seizure (HCC) Other convulsions Intrathecal pump infection, initial encounter ([facility]) Breakdown (mechanical) of other nervous system device, implant or graft, sequela 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HCC) Unspecified infantile cerebral palsy S/P percutaneous endoscopic gastrostomy (PEG) tube placement ([facility]) Intractable symptomatic generalized epilepsy ([facility]) documented in this encounter [facility] note* Diagnosis Aspiration pneumonia, unspecified aspiration pneumonia type, unspecified laterality, unspecified part of lung (HCC) SIRS (systemic inflammatory response syndrome) ([facility]) Systemic inflammatory response syndrome, unspecified Acute respiratory failure with hypoxia ([facility]) Pneumonia of both lungs due to infectious organism, unspecified part of lung Sinus tachycardia Other specified cardiac dysrhythmias Agitation requiring sedation protocol Cerebral palsy ([facility]) Unspecified infantile cerebral palsy Seizure disorder ([facility]) Unspecified epilepsy without mention of intractable epilepsy Abdominal distention Flatulence, eructation, and gas pain Difficulty walking Difficulty in walking 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[facility]) 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, unspecified Gastroesophageal reflux disease with esophagitis Artificial opening status 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HCC) Generalized 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 intractable epilepsy Muscle spasticity Spasm of muscle 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 Torticollis Torticollis, unspecified Abdominal distention Flatulence, eructation, and gas pain 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[facility])- Primary 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 Pneumonia due to infectious organism, unspecified laterality, unspecified part of lung Tachycardia- Primary Unspecified tachycardia Generalized edema Edema Sepsis, due to unspecified organism- Primary Hypernatremia Hyperosmolality and/or hypernatremia Acute UTI Urinary tract infection, site not specified Pressure injury of skin of sacral region, unspecified injury stage Decubitus ulcer of ischial area, right, stage IV ([facility]) Sacral decubitus ulcer Pressure ulcer, lower back Intrathecal pump infection, initial encounter ([facility])- Primary Visit for wound check Presence of intrathecal baclofen pump Muscle spasticity Spasm of muscle 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 Seizure ([facility]) Other convulsions Intrathecal pump infection, initial encounter ([facility]) Breakdown (mechanical) of other nervous system device, implant or graft, sequela 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HCC) Unspecified infantile cerebral palsy S/P percutaneous endoscopic gastrostomy (PEG) tube placement (HCC) 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HCC) Unspecified infantile cerebral palsy [facility] Visit Details Visit Type -SN [facility] Star t of Care Discipline -Long-Term Problems Problem Start Date Status Goals Interventions Assess and Instruct Home Visit Disciplines: Long-Term 07/22/2022 Active 1 goal linked to scheduled/documented intervention 4 goal interventions scheduled/documented in this visit Medication Management Disciplines: Long-Term 07/22/2022 Active 1 goal linked to scheduled/documented intervention 1 goal intervention scheduled/documented in this visit Pain Management Disciplines: Long-Term 07/22/2022 Active 1 goal linked to scheduled/documented intervention 1 goal intervention scheduled/documented in this visit IV Therapy Disciplines: Long-Term 07/22/2022 Active 1 goal linked to scheduled/documented intervention 2 goal interventions scheduled/documented in this visit Goals Goal Associated Problem Outcome Goal Met? Visit Notes Home Care Plan Assess and Instruct Home Visit No Medications Medication Management No Pain Pain Management No IV Therapy IV Therapy No Interventions Intervention Associated Problem/Goal Status Variance Visit Notes Falls Problem:Assess and Instruct Home Visit Goal:Home Care Plan Completed Clinician taught: caregiver 4-10 Patient IS at risk for falls (a score of 6 or greater is a predictor of future falls) and clinician instructed: assistive device usage, keep frequently used items in reach and emergency response system and/or keep phone on you Patient/caregiver was able to demonstrate 100% via teachback Safety Problem:Assess and Instruct Home Visit Goal:Home Care Plan Completed Assessed patient vulnerability and home safety risks: none Equipment reviewed midline, IV supplies Patient at risk for harm or abuse no Family members involved in safety plan for Level 2 or 3 n/a Discharge Planning Problem:Assess and Instruct Home Visit Goal:Home Care Plan Completed planned discharge from home care this Wednesday after the IV therapy is completed. Plan for Next Visit Problem:Assess and Instruct Home Visit Goal:Home Care Plan Completed CP assess, VS, midline care/management, medication education Instruct Medication Management Problem:Medication Management Goal:Medications Completed Home Visit Med Education: Medication list reconciled. Medication profile and in-home medication list updated with appropriate changes. Discrepanices noted during home visit: none Instructed patient on dosing, purpose, and side effects. Medication education completed today on all medication(s). Patient/caregiver is able to teach back 100% of instruction. Assess Pain Characteristics and Current Pain Regimen and Instruct Methods of Pain Relief Problem:Pain Management Goal:Pain Completed IV Med Management Problem:IV Therapy Goal:IV Therapy Completed Pt's mother is an SUPERINTENDENT MENAGERIE and is able to demonstrate proper IV administration without difficulty. Instruct IV Therapy Problem:IV Therapy Goal:IV Therapy Completed Pt's mother is an SUPERINTENDENT MENAGERIE and is able to demonstrate proper IV administration without difficulty. [facility] Visit Details Visit Type - [facility] Star t of Care Discipline -Long-Term Problems Problem Start Date Status Goals Interventions Assess and Instruct Home Visit Disciplines: Long-Term 07/22/2022 Active 1 goal linked to scheduled/documented intervention 4 goal interventions scheduled/documented in this visit Medication Management Disciplines: Long-Term 07/22/2022 Active 1 goal linked to scheduled/documented intervention 1 goal intervention scheduled/documented in this visit Pain Management Disciplines: Long-Term 07/22/2022 Active 1 goal linked to scheduled/documented intervention 1 goal intervention scheduled/documented in this visit IV Therapy Disciplines: Long-Term 07/22/2022 Active 1 goal linked to scheduled/documented intervention 2 goal interventions scheduled/documented in this visit Goals Goal Associated Problem Outcome Goal Met? Visit Notes Home Care Plan Assess and Instruct Home Visit No Medications Medication Management No Pain Pain Management No IV Therapy IV Therapy No Interventions Intervention Associated Problem/Goal Status Variance Visit Notes Falls Problem:Assess and Instruct Home Visit Goal:Home Care Plan Completed Clinician taught: caregiver 4-10 Patient IS at risk for falls (a score of 6 or greater is a predictor of future falls) and clinician instructed: assistive device usage, keep frequently used items in reach and emergency response system and/or keep phone on you Patient/caregiver was able to demonstrate 100% via teachback Safety Problem:Assess and Instruct Home Visit Goal:Home Care Plan Completed Assessed patient vulnerability and home safety risks: none Equipment reviewed midline, IV supplies Patient at risk for harm or abuse no Family members involved in safety plan for Level 2 or 3 n/a Discharge Planning Problem:Assess and Instruct Home Visit Goal:Home Care Plan Completed planned discharge from home care this Wednesday after the IV therapy is completed. Plan for Next Visit Problem:Assess and Instruct Home Visit Goal:Home Care Plan Completed CP assess, VS, midline care/management, medication education Instruct Medication Management Problem:Medication Management Goal:Medications Completed Home Visit Med Education: Medication list reconciled. Medication profile and in-home medication list updated with appropriate changes. Discrepanices noted during home visit: none Instructed patient on dosing, purpose, and side effects. Medication education completed today on all medication(s). Patient/caregiver is able to teach back 100% of instruction. Assess Pain Characteristics and Current Pain Regimen and Instruct Methods of Pain Relief Problem:Pain Management Goal:Pain Completed IV Med Management Problem:IV Therapy Goal:IV Therapy Completed Pt's mother is an SUPERINTENDENT MENAGERIE and is able to demonstrate proper IV administration without difficulty. Instruct IV Therapy Problem:IV Therapy Goal:IV Therapy Completed Pt's mother is an SUPERINTENDENT MENAGERIE and is able to demonstrate proper IV administration without difficulty. documented in this encounter [facility] Plan of care note* Visit Details Visit Type -[facility] Disc harge Discipline -Long-Term Problems Problem Start Date Status Goals Interventions Assess and Instruct Home Visit Disciplines: Long-Term 07/22/2022 Resolved on 07/25/2022 1 goal linked to scheduled/documented intervention 4 goal interventions scheduled/documented in this visit Medication Management Disciplines: Long-Term 07/22/2022 Resolved on 07/25/2022 1 goal linked to scheduled/documented intervention 1 goal intervention scheduled/documented in this visit Pain Management Disciplines: Long-Term 07/22/2022 Resolved on 07/25/2022 1 goal linked to scheduled/documented intervention 1 goal intervention scheduled/documented in this visit IV Therapy Disciplines: Long-Term 07/22/2022 Resolved on 07/25/2022 1 goal linked to scheduled/documented intervention Goals Goal Associated Problem Outcome Goal Met? Visit Notes Home Care Plan Assess and Instruct Home Visit Completed Yes Medications Medication Management Completed Yes Pain Pain Management Completed Yes IV Therapy IV Therapy Completed Yes Interventions Intervention Associated Problem/Goal Status Variance Visit Notes Falls Problem:Assess and Instruct Home Visit Goal:Home Care Plan Completed Goals have been met. Pt is at her baseline. IV ATB have been completed and midline removed. Pt tolerated well. Reviewed medications purpose and side effects. Caregiver able to teach back and understands medications. Educated on S&S to report, and fall preventative measures for safety sound recording technician acknowledges understanding. Patient has been discharged from [facility] residential. Safety Problem:Assess and Instruct Home Visit Goal:Home Care Plan Completed Goals have been met. Pt is at her baseline. IV ATB have been completed and midline removed. Pt tolerated well. Reviewed medications purpose and side effects. Caregiver able to teach back and understands medications. Educated on S&S to report, and fall preventative measures for safety sound recording technician acknowledges understanding. Patient has been discharged from [facility] residential. Discharge Planning Problem:Assess and Instruct Home Visit Goal:Home Care Plan Completed Goals have been met. IV ATB have been completed and midline removed. Pt tolerated well. Reviewed medications purpose and side effects. Caregiver able to teach back and understands medications. Educated on S&S to report, and fall preventative measures for safety sound recording technician acknowledges understanding. Patient has been discharged from [facility] residential. Plan for Next Visit Problem:Assess and Instruct Home Visit Goal:Home Care Plan Completed Goals have been met. Pt is at her baseline. IV ATB have been completed and midline removed. Pt tolerated well. Reviewed medications purpose and side effects. Caregiver able to teach back and understands medications. Educated on S&S to report, and fall preventative measures for safety sound recording technician acknowledges understanding. Patient has been discharged from [facility] residential. Instruct Medication Management Problem:Medication Management Goal:Medications Completed Goals have been met. Pt is at her baseline. IV ATB have been completed and midline removed. Pt tolerated well. Reviewed medications purpose and side effects. Caregiver able to teach back and understands medications. Educated on S&S to report, and fall preventative measures for safety sound recording technician acknowledges understanding. Patient has been discharged from [facility] residential. Assess Pain Characteristics and Current Pain Regimen and Instruct Methods of Pain Relief Problem:Pain Management Goal:Pain Completed [facility] Actions Goals have been met. Pt is a t her baseline. IV ATB have been completed and midline removed. Pt tolerated well. Reviewed medications purpose and side effects. Caregiver able to teach back and understands medications. Educated on S&S to report, and fall preventative measures for safety sound recording technician acknowledges understanding. Patient has been discharged from [facility] residential. [facility] encounter [facility])No reason for referral information [facility]WS[facility] Work Phone: Reason for visit Narrative* Auth/Cert Specialty Diagnoses / Procedures Referred By Stephaniac t Referred To Contact Referral ID Status Reason Start Date Expiration Date Visits Re quested Visits Authorized [id number] 1 1 [facility] Assessments Diagnosis 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HCC) Unspecified infantile cerebral palsy Hypoxia Hypoxemia Diagnosis Chronic respiratory failure with hypoxia and hypercapnia (HCC) - Primary Restrictive lung disease due to kyphoscoliosis Aspiration, chronic pulmonar y, initial encounter Diagnosis Spasticity - Primary Abnormal involuntary movements Diagnosis Chronic respiratory failure with hypoxia and hypercapnia (HCC) - Primary Restrictive lung disease due to kyphoscoliosis Aspiration, chronic pulmonar y, initial encounter Diagnosis Spasticity - Primary Abnormal involuntary movements Diagnosis Tachycardia Unspecified tachycardia Generalized edema Edema Diagnosis Tachycardia Unspecified tachycardia Diagnosis Tachycardia - Primary Unspecified tachycardia Generalized edema Edema Diagnosis 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 Spasticity Abnormal involuntary movements Hypoxia Hypoxemia Diagnosis Chronic respiratory failure with hypoxia and hypercapnia (HCC) - Primary Restrictive lung disease due to kyphoscoliosis Aspiration, chronic pulmonar y, initial encounter Hypoxia Hypoxemia Tachycardia Unspecified tachycardia Diagnosis Spasticity - Primary Abnormal involuntary movements Diagnosis 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HCC) Unspecified infantile cerebral palsy Spasticity Abnormal involuntary movements Diagnosis Acute sinusitis, recurrence not specified, unspecified location- Primary Diagnosis Spasticity- Primary Abnormal involuntary movements Other cerebral palsy ([facility]) Diagnosis Sepsis, due to unspecified organism ([facility])- Primary Hypernatremia Hyperosmolality and/or hypernatremia Acute UTI Urinary tract infection, site not specified Pressure injury of skin of sacral region, unspecified injury stage Decubitus ulcer of ischial area, right, stage IV ([facility]) Sacral decubitus ulcer Pressure ulcer, lower back Diagnosis 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HCC) - Primary Unspecified infantile cerebral palsy Intractable symptomatic gene ralized epilepsy ([facility]) Hypoxia Hypoxemia Diagnosis Wound healing, delayed Diagnosis Wound healing, delayed Diagnosis Spasticity- Primary Abnormal involuntary movements Diagnosis Sepsis, due to unspecified organism, unspecified whether acute organ dysfunction present ([facility]) Community acquired pneumonia, unspecified laterality Decubitus ulcer of ischial area, right, stage IV ([facility]) Acute on chronic respiratory failure with hypoxia and hypercapnia ([facility]) 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 Pneumonia Pneumonia, organism unspecified Diagnosis Spasticity Abnormal involuntary movements Diagnosis Severe sepsis ([facility]) Acute UTI Urinary tract infection, site not specified Dehydration Cerebral palsy, unspecified type ([facility]) Hypernatremia Hyperosmolality and/or hypernatremia Sepsis ([facility]) Diagnosis Occlusion of peripherally inserted central catheter (PICC) line, initial encounter ([facility]) Diagnosis Spasticity Abnormal involuntary movements 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HCC) Unspecified infantile cerebral palsy Diagnosis Sepsis, due to unspecified organism, unspecified whether acute organ dysfunction present (HCC) Aspiration pneumonia, unspecified aspiration pneumonia type, unspecified laterality, unspecified part of lung (HCC) Wound infection Posttraumatic wound infection not elsewhere classified Sage catheter in place Other postprocedural status Acute UTI Urinary tract infection, site not specified Diagnosis Spasticity- Primary Abnormal involuntary movements 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HCC) Unspecified infantile cerebral palsy Diagnosis Sacral wound, initial encounter- Primary 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 Chronic respiratory failure with hypoxia (HCC) Chronic indwelling Sage catheter Pressure injury of right buttock, stage 3 (HCC) Generalized epilepsy (HCC) Unspecified epilepsy without mention of intractable epilepsy 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) Medication management Spasticity Abnormal involuntary movements Hypoxia Hypoxemia Diagnosis COVID-19- Primary 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HCC) Congenital quadriplegia Spasticity Abnormal involuntary movements 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HCC) Unspecified infantile cerebral palsy COVID-19 virus infection Chronic respiratory failure with hypoxia (HCC) Diagnosis Pressure injury of skin, unspecified injury stage, unspecified location- Primary Cerebral palsy, unspecified type (HCC) Buttock wound, right, initial encounter Diagnosis 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) COVID-19 Muscle spasticity Spasm of muscle Hypoxia Hypoxemia Diagnosis Spasticity- Primary Abnormal involuntary movements Neuropathic pain Diagnosis Chronic respiratory failure with hypoxia and hypercapnia (HCC)- Primary Restrictive lung disease due to kyphoscoliosis Chronic pulmonary aspiration, sequela Diagnosis Acute UTI Urinary tract infection, site not specified Wound infection Posttraumatic wound infection not elsewhere classified Indwelling catheter present on admission Cerebral palsy, unspecified type (HCC) Dysphagia, unspecified type UTI (urinary tract infection) Urinary tract infection, site not specified Diagnosis Pressure injury of sacral region, stage 3 (HCC)- Primary Diagnosis S/P PICC central line placement- Primary Other postprocedural status Wound infection Posttraumatic wound infection not elsewhere classified Instructions * Patient Instructions - Ruma Godwin CNP - 01/07/2018 11:20 AM EDT Formatting of this note may be different from the original. INTRATHECAL BACLOFEN SYSTEM INFORMATION FOR Claudine Joseph Severe Spasticity due to: CP Implanted: [address] Roxy RENE date: 63 Synchromed I IPump Size: 40 mL Willard Location: 11 oclock Catheter Tip Placement: PLAN REGARDING INTRATHECAL BACLOFEN THERAPY First Medication Brand: LIJOSE GUADALUPEAL Concentration: 2000 mcg/mL Total Daily Dose: 677.2 mcg/day 1. Pump Programming: Simple Continuous 2. Pump Esto Refill: The injection site was prepped sterilely, landmarks were identified, and the pump was accessed with a coring needle. Approximately 3(calculated 3.9) cc of clear, colorless fluid was removed from the reservoir. The reservoir was then refilled with 40 ml of 2000mcg/ml baclofen for intrathecal administration. No difficulties were noted, and the pressure was within acceptable limits. kit # [id number]: concentration 2000 mcg/ml, volume 20 ml was used. 3. Programming Adjustments today: 5% increase 677.2mcg/day 4. ITB system Procedures today: pump computer interrogation, pump computer reprogramming and pump reservoir refill 5. Last reservoir refill date: 01/07/18 6. Pump Low Esto Alarm Date: 04/29/18 7. Claudine Joseph and/or her caregivers have verbal consents to all of the ITB system adjustments and procedures performed today PLAN REGARDING ADJUNCTIVE SPASTICITY THERAPIES 1. Noxious stimulation worsens spasticity. This included when the weather is cold outside, urinary tract infections and other infections, pressure sores, poor seating or sleeping ergonomics, constipation and urinary retention. she is encouraged to report any of these symptoms. 2. We recommend practicing good spasticity hygiene: A. Stretch upon waking, partway through the day, and before bed every day B. Stay adequately hydrated C. Treat constipation, urinary retention, bladder infections D. Check dependant areas of the body every day for redness / skin breakdown E. Exercise! Movement is camejo. Try yoga, magan chi, or water aerobics. D. Stop to stretch during long periods of sitting (long car ride, business meeting) F. Don't get too cool. Cold often worsens spasticity. 3. We provide new script for baclofen prn for signs of withdrawal. PLAN REGARDING FOLLOW UP 1. We will schedule follow up a week before her alarm date, which is 04/29/18. 2. I strongly recommend that she keep an up-to-date emergency bottle of oral baclofen with her atall times to take for withdrawal symptoms. 3. I also recommend that she keep her [employer] identification card with our clinic contact information at all times. 4. Dr. Murphy and Dr. Ngo can be reached for emergencies and after hours by calling the [facility] at PATIENT AND CARE PROVIDER EDUCATION You can learn more about spasticity and ITB therapy at the following website: [email or web address] If you have a smart phone then we recommend you download the free pump partner application as well. It is a resource for ITB education and tracking your personalized therapy. SYNCHROMED II ITB SYSTEM The intrathecal baclofen pump system is the way our treatment team gives baclofen directly into thespinal fluid. The system consists of a catheter (a small, flexible tube) and a pump. The pump -- a round metal disc, about one inch thick and three inches in diameter -- is surgically placed under the skin of the abdomen near the waistline. The pump stores and releases prescribed amounts of medicine through the cathete directly to the spinal fluid. With a programmable pump, a tiny motor moves themedication from the pump reservoir through the catheter. Using an external it programmer analyst, your treatment team can make adjustments in the dose, rate, and timing of the medication. Continuously delivers baclofen in small doses directly to the spinal fluid, increasing the therapeutic benefits and causing fewer and less severe side effects than the oral medication. Patients with a pump must return to their doctor's office for pump refills and medication adjustments, typically every 1-3 months. ITB SYSTEM MAINTENANCE AND REPAIR The catheter may kink, break or dislodge in up to 10% of cases and would require a surgery to revise it. The Synchromed II pump requires replacement for end of battery life within 7 years. This will require a surgery. The catheter is not required to be replaced, just the pump. INTRATHECAL BACLOFEN WITHDRAWAL Signs and symptoms of baclofen withdrawal often include diffuse body itching, increased stiffness and fever. I have reminded her to take 20mg of oral baclofen and contact our office if she has these symptoms. she may need to be seen in the emergency department. The baclofen withdrawal syndrome can progress to include confusion, sedation and even coma. In severe cases baclofen withdrawal can lead to kidney damage, seizures and possibly . A lumbar puncture with an injection of 50mcg intrathecal baclofen in the emergency department is often the best treatment to address severe balcofen withdrawal symptoms. INTRATHECAL BACLOFEN OVERDOSE Signs and symptoms of baclofen overdose often include sedation and confusion and most commonly occur recently following an ITB refill/program adjustment. I recommend Claudine Joseph contact our office prompts if these symptoms occur. The baclofen overdose syndrome can progress to include coma, seizures, respiratory and cardiac depression and possibly . I have reminded her to contact our office and go to the emergency room if she experiences these symptoms. A high volume lumbar puncture (removing 40cc of both CSF and intrathecal baclofen) in the emergency department is often the best treatment for severe baclofen overdose symptoms. ITB SYSTEM INFECTION Infection of the pump system can lead to meningitis (severe brain infection) and can be possibly fatal. Signs and symptoms of pump infection can include redness, swelling, or pain around the pump or surgical scar on the back. Fever and a stiff neck are also common. I recommend that Claudine Joseph go to the Emergency Department if she has any of signs/symptoms of pump infection. MRI SCANNING Synchromed II ITB pumps are MRI compatible including 3T strength scanners. The pump stops pumping temporarily when the patient is moved near the MRI machine. The pump automatically restarts once the patient moves away from the MRI machine. We follow a clinic best practice of interrogating the pump following MRI scans to ensure the ITB pump has restarted. This can often be arranged to be done by a[employer] Conference And Event Organiser if scheduled during business hours. We recommend AGAINST any MRI scans scheduled outside of business hours. EDUCATION: HOT TUBs, STEAM ROOMS, SAUNAS AND TANNING BED We recommend patients avoid these, especially if over 102 degrees. Heating up your body causes the ITB pump to potential increase its flow rate, which could cause overdose/. EDUCATION: SCUBA DIVING We recommend that an ITB patient avoid depths below 33 feet (10 meters). Diving lower than this could permanently damage the pump. Also as you descend and the pressure around your body increases, pump flow can decrease. This could lead to baclofen withdrawal/. EDUCATION REGARDING DAYLIGHT SAVINGS TIME The clock inside the pump does not adjust for daylight savings time changes (spring forward and fall backwards). If you are on flex dosing or bolus dosing programming then your dosing will becomeshifted an hour, which may cause problems for the patient. The pump clock only corrects for daylight savings time after being interrogated by a it programmer analyst. The flex/bolus dosing patient should schedule a visit after a time change to reset their pump clocks. I spent 30 minutes face to face with the patient today. Over half the time was spent counseling regarding her spasticity as well as it's underlying medical condition, as well as her coordinating care.Thank you very much for allowing me to participate in this patient's care and please do not hesitate to contact me with questions or concerns. Sincerely, Ruma Godwin MS, BSN, ACNP-BC, CNRN Acute Care Nurse Practitioner [facility] [address] [place], [address] [place] [address] [email or web address] Office [phone] in this encounter* Patient Instructions - Ruma Godwin, DIRECTOR OF GLOBAL SALES - 09/17/2017 10:41 AM EST Formatting of this note may be different from the original. 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 Roxy RENE date: Synchromed I IPump Size: 40 mL Willard Location: 11 oclock Catheter Tip Placement: PLAN REGARDING INTRATHECAL BACLOFEN THERAPY First Medication Brand: LIORESAL Concentration: 2000 mcg/mL Total Daily Dose: 645.4 mcg/day 1. Pump Programming: Simple Continuous 2. Pump Esto Refill: The injection site was prepped sterilely, landmarks were identified, and the pump was accessed with a coring needle. Approximately 5 (calculated 5.2) cc of clear, colorless fluid was removed from the reservoir. The reservoir was then refilled with 40 ml of 2000mcgml baclofen for intrathecal administration. No difficulties were noted, and the pressure was within acceptable limits. kit # [id number]: concentration 2000 mcg/ml, volume 40 ml was used. 3. Programming Adjustments today: none, refill only 4. ITB system Procedures today: pump computer interrogation, pump computer reprogramming and pump reservoir refill 5. Last reservoir refill date: 09/17/17 6. Pump Low Esto Alarm Date: 01/12/18 7. Claudine Joseph and/or her caregivers have verbal consents to all of the ITB system adjustments and procedures performed today PLAN REGARDING ADJUNCTIVE SPASTICITY THERAPIES 1. Noxious stimulation worsens spasticity. This included when the weather is cold outside, urinary tract infections and other infections, pressure sores, poor seating or sleeping ergonomics, constipation and urinary retention. she is encouraged to report any of these symptoms. 2. We recommend practicing good spasticity hygiene: A. Stretch upon waking, partway through the day, and before bed every day B. Stay adequately hydrated C. Treat constipation, urinary retention, bladder infections D. Check dependant areas of the body every day for redness / skin breakdown E. Exercise! Movement is camejo. Try yoga, magan chi, or water aerobics. D. Stop to stretch during long periods of sitting (long car ride, business meeting) F. Don't get too cool. Cold often worsens spasticity. PLAN REGARDING FOLLOW UP 1. We will schedule follow up a week before her alarm date, which is 01/12/18. 2. I strongly recommend that she keep an up-to-date emergency bottle of oral baclofen with her atall times to take for withdrawal symptoms. 3. I also recommend that she keep her [employer] identification card with our clinic contact information at all times. 4. Dr. Murphy and Dr. Ngo can be reached for emergencies and after hours by calling the [facility] at . PATIENT AND CARE PROVIDER EDUCATION You can learn more about spasticity and ITB therapy at the following website: [email or web address] If you have a smart phone then we recommend you download the free pump partner application as well. It is a resource for ITB education and tracking your personalized therapy. SYNCHROMED II ITB SYSTEM The intrathecal baclofen pump system is the way our treatment team gives baclofen directly into thespinal fluid. The system consists of a catheter (a small, flexible tube) and a pump. The pump -- a round metal disc, about one inch thick and three inches in diameter -- is surgically placed under the skin of the abdomen near the waistline. The pump stores and releases prescribed amounts of medicine through the cathete directly to the spinal fluid. With a programmable pump, a tiny motor moves themedication from the pump reservoir through the catheter. Using an external it programmer analyst, your treatment team can make adjustments in the dose, rate, and timing of the medication. Continuously delivers baclofen in small doses directly to the spinal fluid, increasing the therapeutic benefits and causing fewer and less severe side effects than the oral medication. Patients with a pump must return to their doctor's office for pump refills and medication adjustments, typically every 1-3 months. ITB SYSTEM MAINTENANCE AND REPAIR The catheter may kink, break or dislodge in up to 10% of cases and would require a surgery to revise it. The Synchromed II pump requires replacement for end of battery life within 7 years. This will require a surgery. The catheter is not required to be replaced, just the pump. INTRATHECAL BACLOFEN WITHDRAWAL Signs and symptoms of baclofen withdrawal often include diffuse body itching, increased stiffness and fever. I have reminded her to take 20mg of oral baclofen and contact our office if she has these symptoms. she may need to be seen in the emergency department. The baclofen withdrawal syndrome can progress to include confusion, sedation and even coma. In severe cases baclofen withdrawal can lead to kidney damage, seizures and possibly . A lumbar puncture with an injection of 50mcg intrathecal baclofen in the emergency department is often the best treatment to address severe balcofen withdrawal symptoms. INTRATHECAL BACLOFEN OVERDOSE Signs and symptoms of baclofen overdose often include sedation and confusion and most commonly occur recently following an ITB refill/program adjustment. I recommend Claudine Joseph contact our office prompts if these symptoms occur. The baclofen overdose syndrome can progress to include coma, seizures, respiratory and cardiac depression and possibly . I have reminded her to contact our office and go to the emergency room if she experiences these symptoms. A high volume lumbar puncture (removing 40cc of both CSF and intrathecal baclofen) in the emergency department is often the best treatment for severe baclofen overdose symptoms. ITB SYSTEM INFECTION Infection of the pump system can lead to meningitis (severe brain infection) and can be possibly fatal. Signs and symptoms of pump infection can include redness, swelling, or pain around the pump or surgical scar on the back. Fever and a stiff neck are also common. I recommend that Claudine Demterius Joseph go to the Emergency Department if she has any of signs/symptoms of pump infection. MRI SCANNING Synchromed II ITB pumps are MRI compatible including 3T strength scanners. The pump stops pumping temporarily when the patient is moved near the MRI machine. The pump automatically restarts once the patient moves away from the MRI machine. We follow a clinic best practice of interrogating the pump following MRI scans to ensure the ITB pump has restarted. This can often be arranged to be done by [employer] Event Organ[employer] if scheduled during business hours. We recommend AGAINST any MRI scans scheduled outside of business hours. EDUCATION: HOT TUBs, STEAM ROOMS, SAUNAS AND TANNING BED We recommend patients avoid these, especially if over 102 degrees. Heating up your body causes the ITB pump to potential increase its flow rate, which could cause overdose/. EDUCATION: SCUBA DIVING We recommend that an ITB patient avoid depths below 33 feet (10 meters). Diving lower than this could permanently damage the pump. Also as you descend and the pressure around your body increases, pump flow can decrease. This could lead to baclofen withdrawal/. EDUCATION REGARDING DAYLIGHT SAVINGS TIME The clock inside the pump does not adjust for daylight savings time changes (spring forward and fall backwards). If you are on flex dosing or bolus dosing programming then your dosing will becomeshifted an hour, which may cause problems for the patient. The pump clock only corrects for daylight savings time after being interrogated by a it programmer analyst. The flex/bolus dosing patient should schedule a visit after a time change to reset their pump clocks. I spent 30 minutes face to face with the patient today. Over half the time was spent counseling regarding her spasticity as well as it's underlying medical condition, as well as her coordinating care.Thank you very much for allowing me to participate in this patient's care and please do not hesitate to contact me with questions or concerns. Sincerely, Ruma Godwin MS, BSN, ACNP-BC, CNRN Acute Care Nurse Practitioner [facility] [address] [place] [address], [id number] [place] [address] [email or web address] Office [phone] in this encounter* Patient Instructions - Ruma Godwin [facility] - 04/21/2018 10:16 AM EDT Formatting of this note may be different from the original. 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 Roxy RENE date: 60 Synchromed I IPump Size: 40 mL Willard Location: 11 oclock Catheter Tip Placement: PLAN REGARDING INTRATHECAL BACLOFEN THERAPY First Medication Brand: LIORESAL Concentration: 2000 mcg/mL Total Daily Dose: 677.2 mcg/day 1. Pump Programming: Simple Continuous 2. Pump Esto Refill: The injection site was prepped sterilely, landmarks were identified, and the pump was accessed with a coring needle. Approximately 5 (calculated 4.9) cc of clear, colorless fluid was removed from the reservoir. The reservoir was then refilled with 40 ml of 2000mcg/ml baclofen for intrathecal administration. No difficulties were noted, and the pressure was within acceptable limits. kit # 8566: concentration 2000 mcg/ml, volume 40 ml was used. 3. Programming Adjustments today: None, refill only 4. ITB system Procedures today: pump computer interrogation, pump computer reprogramming and pump reservoir refill 5. Last reservoir refill date: 01/07/18 6. Pump Low Esto Alarm Date: 08/11/18 7. Claudine Joseph and/or her caregivers have verbal consents to all of the ITB system adjustments and procedures performed today PLAN REGARDING ADJUNCTIVE SPASTICITY THERAPIES 1. Noxious stimulation worsens spasticity. This included when the weather is cold outside, urinary tract infections and other infections, pressure sores, poor seating or sleeping ergonomics, constipation and urinary retention. she is encouraged to report any of these symptoms. 2. We recommend practicing good spasticity hygiene: A. Stretch upon waking, partway through the day, and before bed every day B. Stay adequately hydrated C. Treat constipation, urinary retention, bladder infections D. Check dependant areas of the body every day for redness / skin breakdown E. Exercise! Movement is camejo. Try yoga, magan chi, or water aerobics. D. Stop to stretch during long periods of sitting (long car ride, business meeting) F. Don't get too cool. Cold often worsens spasticity. PLAN REGARDING FOLLOW UP 1. We will schedule follow up a week before her alarm date, which is 08/11/18. 2. I strongly recommend that she keep an up-to-date emergency bottle of oral baclofen with her atall times to take for withdrawal symptoms. 3. I also recommend that she keep her [employer] identification card with our clinic contact information at all times. 4. Dr. Murphy and Dr. Ngo can be reached for emergencies and after hours by calling the [facility] at PATIENT AND CARE PROVIDER EDUCATION You can learn more about spasticity and ITB therapy at the following website: [email or web address] If you have a smart phone then we recommend you download the free pump partner application as well. It is a resource for ITB education and tracking your personalized therapy. SYNCHROMED II ITB SYSTEM The intrathecal baclofen pump system is the way our treatment team gives baclofen directly into thespinal fluid. The system consists of a catheter (a small, flexible tube) and a pump. The pump -- a round metal disc, about one inch thick and three inches in diameter -- is surgically placed under the skin of the abdomen near the waistline. The pump stores and releases prescribed amounts of medicine through the cathete directly to the spinal fluid. With a programmable pump, a tiny motor moves themedication from the pump reservoir through the catheter. Using an external it programmer analyst, your treatment team can make adjustments in the dose, rate, and timing of the medication. Continuously delivers baclofen in small doses directly to the spinal fluid, increasing the therapeutic benefits and causing fewer and less severe side effects than the oral medication. Patients with a pump must return to their doctor's office for pump refills and medication adjustments, typically every 1-3 months. ITB SYSTEM MAINTENANCE AND REPAIR The catheter may kink, break or dislodge in up to 10% of cases and would require a surgery to revise it. The Synchromed II pump requires replacement for end of battery life within 7 years. This will require a surgery. The catheter is not required to be replaced, just the pump. INTRATHECAL BACLOFEN WITHDRAWAL Signs and symptoms of baclofen withdrawal often include diffuse body itching, increased stiffness and fever. I have reminded her to take 20mg of oral baclofen and contact our office if she has these symptoms. she may need to be seen in the emergency department. The baclofen withdrawal syndrome can progress to include confusion, sedation and even coma. In severe cases baclofen withdrawal can lead to kidney damage, seizures and possibly . A lumbar puncture with an injection of 50mcg intrathecal baclofen in the emergency department is often the best treatment to address severe balcofen withdrawal symptoms. INTRATHECAL BACLOFEN OVERDOSE Signs and symptoms of baclofen overdose often include sedation and confusion and most commonly occur recently following an ITB refill/program adjustment. I recommend Claudine Joseph contact our office prompts if these symptoms occur. The baclofen overdose syndrome can progress to include coma, seizures, respiratory and cardiac depression and possibly . I have reminded her to contact our office and go to the emergency room if she experiences these symptoms. A high volume lumbar puncture (removing 40cc of both CSF and intrathecal baclofen) in the emergency department is often the best treatment for severe baclofen overdose symptoms. ITB SYSTEM INFECTION Infection of the pump system can lead to meningitis (severe brain infection) and can be possibly fatal. Signs and symptoms of pump infection can include redness, swelling, or pain around the pump or surgical scar on the back. Fever and a stiff neck are also common. I recommend that Claudine Joseph go to the Emergency Department if she has any of signs/symptoms of pump infection. MRI SCANNING Synchromed II ITB pumps are MRI compatible including 3T strength scanners. The pump stops pumping temporarily when the patient is moved near the MRI machine. The pump automatically restarts once the patient moves away from the MRI machine. We follow a clinic best practice of interrogating the pump following MRI scans to ensure the ITB pump has restarted. This can often be arranged to be done by [employer] Conference And Event Organiser if scheduled during business hours. We recommend AGAINST any MRI scans scheduled outside of business hours. EDUCATION: HOT TUBs, STEAM ROOMS, SAUNAS AND TANNING BED We recommend patients avoid these, especially if over 102 degrees. Heating up your body causes the ITB pump to potential increase its flow rate, which could cause overdose/. EDUCATION: SCUBA DIVING We recommend that an ITB patient avoid depths below 33 feet (10 meters). Diving lower than this could permanently damage the pump. Also as you descend and the pressure around your body increases, pump flow can decrease. This could lead to baclofen withdrawal/. EDUCATION REGARDING DAYLIGHT SAVINGS TIME The clock inside the pump does not adjust for daylight savings time changes (spring forward and fall backwards). If you are on flex dosing or bolus dosing programming then your dosing will becomeshifted an hour, which may cause problems for the patient. The pump clock only corrects for daylight savings time after being interrogated by a it programmer analyst. The flex/bolus dosing patient should schedule a visit after a time change to reset their pump clocks. I spent 30 minutes face to face with the patient today. Over half the time was spent counseling regarding her spasticity as well as it's underlying medical condition, as well as her coordinating care.Thank you very much for allowing me to participate in this patient's care and please do not hesitate to contact me with questions or concerns. Sincerely, Ruma Godwin MS, BSN, ACNP-BC, CNRN Acute Care Nurse Practitioner [facility] [place] [address] [place], [address] [place] [address] [email or web address] Office [phone] in this encounter* Patient Instructions - Ruma Godwin, DIRECTOR OF GLOBAL SALES - 06/01/2017 11:32 AM EDT Formatting of this note may be different from the original. 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 Roxy RENE date: Synchromed I IPump Size: 40 mL Willard Location: 11 oclock Catheter Tip Placement: PLAN REGARDING INTRATHECAL BACLOFEN THERAPY First Medication Brand: LIORESAL Concentration: 2000 mcg/mL Total Daily Dose: 645.4 mcg/day 1. Pump Programming: Simple Continuous 2. Pump Esto Refill: The injection site was prepped sterilely, landmarks were identified, and the pump was accessed with a coring needle. Approximately 4 (calculated 4.9) cc of clear, colorless fluid was removed from the reservoir. The reservoir was then refilled with 40 ml of 2000mcg/ml baclofen for intrathecal administration. No difficulties were noted, and the pressure was within acceptable limits. kit # 8566: concentration 2000 mcg/ml, volume 40 ml was used. 3. Programming Adjustments today: none, refill only 4. ITB system Procedures today: pump computer interrogation, pump computer reprogramming and pump reservoir refill 5. Last reservoir refill date: 06/01/17 6. Pump Low Esto Alarm Date: 09/26/17 7. Claudine Joseph and/or her caregivers have verbal consents to all of the ITB system adjustments and procedures performed today PLAN REGARDING ADJUNCTIVE SPASTICITY THERAPIES 1. Noxious stimulation worsens spasticity. This included when the weather is cold outside, urinary tract infections and other infections, pressure sores, poor seating or sleeping ergonomics, constipation and urinary retention. she is encouraged to report any of these symptoms. 2. We recommend practicing good spasticity hygiene: A. Stretch upon waking, partway through the day, and before bed every day B. Stay adequately hydrated C. Treat constipation, urinary retention, bladder infections D. Check dependant areas of the body every day for redness / skin breakdown E. Exercise! Movement is camejo. Try yoga, magan chi, or water aerobics. D. Stop to stretch during long periods of sitting (long car ride, business meeting) F. Don't get too cool. Cold often worsens spasticity. PLAN REGARDING FOLLOW UP 1. We will schedule follow up a week before her alarm date, which is 09/26/17. 2. I strongly recommend that she keep an up-to-date emergency bottle of oral baclofen with her atall times to take for withdrawal symptoms. 3. I also recommend that she keep her [employer] identification card with our clinic contact information at all times. 4. Dr. Murphy and Dr. Ngo can be reached for emergencies and after hours by calling the [facility] at . PATIENT AND CARE PROVIDER EDUCATION You can learn more about spasticity and ITB therapy at the following website: [email or web address] If you have a smart phone then we recommend you download the free pump partner application as well. It is a resource for ITB education and tracking your personalized therapy. SYNCHROMED II ITB SYSTEM The intrathecal baclofen pump system is the way our treatment team gives baclofen directly into thespinal fluid. The system consists of a catheter (a small, flexible tube) and a pump. The pump -- a round metal disc, about one inch thick and three inches in diameter -- is surgically placed under the skin of the abdomen near the waistline. The pump stores and releases prescribed amounts of medicine through the cathete directly to the spinal fluid. With a programmable pump, a tiny motor moves themedication from the pump reservoir through the catheter. Using an external it programmer analyst, your treatment team can make adjustments in the dose, rate, and timing of the medication. Continuously delivers baclofen in small doses directly to the spinal fluid, increasing the therapeutic benefits and causing fewer and less severe side effects than the oral medication. Patients with a pump must return to their doctor's office for pump refills and medication adjustments, typically every 1-3 months. ITB SYSTEM MAINTENANCE AND REPAIR The catheter may kink, break or dislodge in up to 10% of cases and would require a surgery to revise it. The Synchromed II pump requires replacement for end of battery life within 7 years. This will require a surgery. The catheter is not required to be replaced, just the pump. INTRATHECAL BACLOFEN WITHDRAWAL Signs and symptoms of baclofen withdrawal often include diffuse body itching, increased stiffness and fever. I have reminded her to take 20mg of oral baclofen and contact our office if she has these symptoms. she may need to be seen in the emergency department. The baclofen withdrawal syndrome can progress to include confusion, sedation and even coma. In severe cases baclofen withdrawal can lead to kidney damage, seizures and possibly . A lumbar puncture with an injection of 50mcg intrathecal baclofen in the emergency department is often the best treatment to address severe balcofen withdrawal symptoms. INTRATHECAL BACLOFEN OVERDOSE Signs and symptoms of baclofen overdose often include sedation and confusion and most commonly occur recently following an ITB refill/program adjustment. I recommend Claudine Joseph contact our office prompts if these symptoms occur. The baclofen overdose syndrome can progress to include coma, seizures, respiratory and cardiac depression and possibly . I have reminded her to contact our office and go to the emergency room if she experiences these symptoms. A high volume lumbar puncture (removing 40cc of both CSF and intrathecal baclofen) in the emergency department is often the best treatment for severe baclofen overdose symptoms. ITB SYSTEM INFECTION Infection of the pump system can lead to meningitis (severe brain infection) and can be possibly fatal. Signs and symptoms of pump infection can include redness, swelling, or pain around the pump or surgical scar on the back. Fever and a stiff neck are also common. I recommend that Claudine Joseph go to the Emergency Department if she has any of signs/symptoms of pump infection. MRI SCANNING Synchromed II ITB pumps are MRI compatible including 3T strength scanners. The pump stops pumping temporarily when the patient is moved near the MRI machine. The pump automatically restarts once the patient moves away from the MRI machine. We follow a clinic best practice of interrogating the pump following MRI scans to ensure the ITB pump has restarted. This can often be arranged to be done by [facility] Conference And Event Organiser if scheduled during business hours. We recommend AGAINST any MRI scans scheduled outside of business hours. EDUCATION: HOT TUBs, STEAM ROOMS, SAUNAS AND TANNING BED We recommend patients avoid these, especially if over 102 degrees. Heating up your body causes the ITB pump to potential increase its flow rate, which could cause overdose/. EDUCATION: SCUBA DIVING We recommend that an ITB patient avoid depths below 33 feet (10 meters). Diving lower than this could permanently damage the pump. Also as you descend and the pressure around your body increases, pump flow can decrease. This could lead to baclofen withdrawal/. EDUCATION REGARDING DAYLIGHT SAVINGS TIME The clock inside the pump does not adjust for daylight savings time changes (spring forward and fall backwards). If you are on flex dosing or bolus dosing programming then your dosing will becomeshifted an hour, which may cause problems for the patient. The pump clock only corrects for daylight savings time after being interrogated by a it programmer analyst. The flex/bolus dosing patient should schedule a visit after a time change to reset their pump clocks. I spent 30 minutes face to face with the patient today. Over half the time was spent counseling regarding her spasticity as well as it's underlying medical condition, as well as her coordinating care.Thank you very much for allowing me to participate in this patient's care and please do not hesitate to contact me with questions or concerns. 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 Roxy RENE date: 54 (March 2023) Synchromed I IPump Size: 40 mL Willard Location: 11 oclock Catheter Tip Placement: PLAN REGARDING INTRATHECAL BACLOFEN THERAPY First Medication Brand: LIORESAL Concentration: 2000 mcg/mL Total Daily Dose: 649.8 mcg/day 1. Pump Programming: Simple Continuous 2. Pump Esto Refill: The injection site was prepped sterilely, landmarks were identified, and the pump was accessed with a coring needle. Approximately 5 (4.7 calculated) cc of clear, colorless fluid was removed from the reservoir. The reservoir was then refilled with 40 ml of 2000mcg/ml baclofen for intrathecal administration. No difficulties were noted, and the pressure was within acceptable limits. kit # 8566: concentration 2000 mcg/ml, volume 40 ml was used. 3. Programming Adjustments today: None; refill only 4. ITB system Procedures today: pump computer interrogation, pump computer reprogramming and pump reservoir refill 5. Last reservoir refill date: 11/21/18 6. Pump Low Esto Alarm Date: 03/17/19 7. Claudine Joseph and/or her caregivers have verbal consents to all of the ITB system adjustments and procedures performed today PLAN REGARDING ADJUNCTIVE SPASTICITY THERAPIES 1. Noxious stimulation worsens spasticity. This included when the weather is cold outside, urinary tract infections and other infections, pressure sores, poor seating or sleeping ergonomics, constipation and urinary retention. she is encouraged to report any of these symptoms. 2. We recommend practicing good spasticity hygiene: A. Stretch upon waking, partway through the day, and before bed every day B. Stay adequately hydrated C. Treat constipation, urinary retention, bladder infections D. Check dependant areas of the body every day for redness / skin breakdown E. Exercise! Movement is camejo. Try yoga, magan chi, or water aerobics. D. Stop to stretch during long periods of sitting (long car ride, business meeting) F. Don't get too cool. Cold often worsens spasticity. PLAN REGARDING FOLLOW UP 1. We will schedule follow up a week before her alarm date, which is 03/17/19. 2. I strongly recommend that she keep an up-to-date emergency bottle of oral baclofen with her atall times to take for withdrawal symptoms. 3. I also recommend that she keep her [employer] identification card with our clinic contact information at all times. 4. Dr. Murphy and Dr. Ngo can be reached for emergencies and after hours by calling the [facility] at . PATIENT AND CARE PROVIDER EDUCATION You can learn more about spasticity and ITB therapy at the following website: [email or web address] If you have a smart phone then we recommend you download the free pump partner application as well. It is a resource for ITB education and tracking your personalized therapy. SYNCHROMED II ITB SYSTEM The intrathecal baclofen pump system is the way our treatment team gives baclofen directly into thespinal fluid. The system consists of a catheter (a small, flexible tube) and a pump. The pump -- a round metal disc, about one inch thick and three inches in diameter -- is surgically placed under the skin of the abdomen near the waistline. The pump stores and releases prescribed amounts of medicine through the cathete directly to the spinal fluid. With a programmable pump, a tiny motor moves themedication from the pump reservoir through the catheter. Using an external it programmer analyst, your treatment team can make adjustments in the dose, rate, and timing of the medication. Continuously delivers baclofen in small doses directly to the spinal fluid, increasing the therapeutic benefits and causing fewer and less severe side effects than the oral medication. Patients with a pump must return to their doctor's office for pump refills and medication adjustments, typically every 1-3 months. ITB SYSTEM MAINTENANCE AND REPAIR The catheter may kink, break or dislodge in up to 10% of cases and would require a surgery to revise it. The Synchromed II pump requires replacement for end of battery life within 7 years. This will require a surgery. The catheter is not required to be replaced, just the pump. INTRATHECAL BACLOFEN WITHDRAWAL Signs and symptoms of baclofen withdrawal often include diffuse body itching, increased stiffness and fever. I have reminded her to take 20mg of oral baclofen and contact our office if she has these symptoms. she may need to be seen in the emergency department. The baclofen withdrawal syndrome can progress to include confusion, sedation and even coma. In severe cases baclofen withdrawal can lead to kidney damage, seizures and possibly . A lumbar puncture with an injection of 50mcg intrathecal baclofen in the emergency department is often the best treatment to address severe balcofen withdrawal symptoms. INTRATHECAL BACLOFEN OVERDOSE Signs and symptoms of baclofen overdose often include sedation and confusion and most commonly occur recently following an ITB refill/program adjustment. I recommend Claudine Joseph contact our office prompts if these symptoms occur. The baclofen overdose syndrome can progress to include coma, seizures, respiratory and cardiac depression and possibly . I have reminded her to contact our office and go to the emergency room if she experiences these symptoms. A high volume lumbar puncture (removing 40cc of both CSF and intrathecal baclofen) in the emergency department is often the best treatment for severe baclofen overdose symptoms. ITB SYSTEM INFECTION Infection of the pump system can lead to meningitis (severe brain infection) and can be possibly fatal. Signs and symptoms of pump infection can include redness, swelling, or pain around the pump or surgical scar on the back. Fever and a stiff neck are also common. I recommend that Claudine Joseph go to the Emergency Department if she has any of signs/symptoms of pump infection. MRI SCANNING Synchromed II ITB pumps are MRI compatible including 3T strength scanners. The pump stops pumping temporarily when the patient is moved near the MRI machine. The pump automatically restarts once the patient moves away from the MRI machine. We follow a clinic best practice of interrogating the pump following MRI scans to ensure the ITB pump has restarted. This can often be arranged to be done by [facility] [employer] if scheduled during business hours. We recommend AGAINST any MRI scans scheduled outside of business hours. EDUCATION: HOT TUBs, STEAM ROOMS, SAUNAS AND TANNING BED We recommend patients avoid these, especially if over 102 degrees. Heating up your body causes the ITB pump to potential increase its flow rate, which could cause overdose/. EDUCATION: SCUBA DIVING We recommend that an ITB patient avoid depths below 33 feet (10 meters). Diving lower than this could permanently damage the pump. Also as you descend and the pressure around your body increases, pump flow can decrease. This could lead to baclofen withdrawal/. EDUCATION REGARDING DAYLIGHT SAVINGS TIME The clock inside the pump does not adjust for daylight savings time changes (spring forward and fall backwards). If you are on flex dosing or bolus dosing programming then your dosing will becomeshifted an hour, which may cause problems for the patient. The pump clock only corrects for daylight savings time after being interrogated by a it programmer analyst. The flex/bolus dosing patient should schedule a visit after a time change to reset their pump clocks. I spent 30 minutes face to face with the patient today. Over half the time was spent counseling regarding her spasticity as well as it's underlying medical condition, as well as her coordinating care.Thank you very much for allowing me to participate in this patient's care and please do not hesitate to contact me with questions or concerns. Sincerely, Ruma Godwin MS, BSN, ACNP-BC, CNRN Acute Care Nurse Practitioner [facility] [address] [place], [address] [place] [id number] [email or web address] Office [phone] in this encounter* Patient Instructions - Yany Wright, ROCKY - 04/26/2017 2:10 PM EDT Increase Lamictal to 225 mg at night for 1 week. If no rash, increase morning dose to 225 mg. We can reevaluate at next office visit. 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 Roxy RENE date: 46 (March 2023) Synchromed I IPump Size: 40 mL Willard Location: 11 oclock Catheter Tip Placement: PLAN REGARDING INTRATHECAL BACLOFEN THERAPY First Medication Brand: LIORESAL Concentration: 2000 mcg/mL Total Daily Dose: 649.8 mcg/day 1. Pump Programming: Simple Continuous 2. Pump Esto Refill: The injection site was prepped sterilely, landmarks were identified, and the pump was accessed with a coring needle. Approximately 5 (calculated 3.7) cc of clear, colorless fluid was removed from the reservoir. The reservoir was then refilled with 40 ml of 2000mcg/ml baclofen for intrathecal administration. No difficulties were noted, and the pressure was within acceptable limits. kit # 8566: concentration 2000 mcg/ml, volume 40 ml was used. 3. Programming Adjustments today: None; refill only 4. ITB system Procedures today: pump computer interrogation, pump computer reprogramming and pump reservoir refill 5. Last reservoir refill date: 06/29/19 6. Pump Low Esto Alarm Date: 07/03/19 7. Claudine Joseph and/or her caregivers have verbal consents to all of the ITB system adjustments and procedures performed today PLAN REGARDING ADJUNCTIVE SPASTICITY THERAPIES 1. Noxious stimulation worsens spasticity. This included when the weather is cold outside, urinary tract infections and other infections, pressure sores, poor seating or sleeping ergonomics, constipation and urinary retention. she is encouraged to report any of these symptoms. 2. We recommend practicing good spasticity hygiene: A. Stretch upon waking, partway through the day, and before bed every day B. Stay adequately hydrated C. Treat constipation, urinary retention, bladder infections D. Check dependant areas of the body every day for redness / skin breakdown E. Exercise! Movement is camejo. Try yoga, magan chi, or water aerobics. D. Stop to stretch during long periods of sitting (long car ride, business meeting) F. Don't get too cool. Cold often worsens spasticity. PLAN REGARDING FOLLOW UP 1. We will schedule follow up a week before her alarm date, which is 10/23/19. 2. I strongly recommend that she keep an up-to-date emergency bottle of oral baclofen with her atall times to take for withdrawal symptoms. 3. I also recommend that she keep her [employer] identification card with our clinic contact information at all times. 4. Dr. Murphy and Dr. Ngo can be reached for emergencies and after hours by calling the [facility] at PATIENT AND CARE PROVIDER EDUCATION You can learn more about spasticity and ITB therapy at the following website: [email or web address] If you have a smart phone then we recommend you download the free pump partner application as well. It is a resource for ITB education and tracking your personalized therapy. SYNCHROMED II ITB SYSTEM The intrathecal baclofen pump system is the way our treatment team gives baclofen directly into thespinal fluid. The system consists of a catheter (a small, flexible tube) and a pump. The pump -- a round metal disc, about one inch thick and three inches in diameter -- is surgically placed under the skin of the abdomen near the waistline. The pump stores and releases prescribed amounts of medicine through the cathete directly to the spinal fluid. With a programmable pump, a tiny motor moves themedication from the pump reservoir through the catheter. Using an external it programmer analyst, your treatment team can make adjustments in the dose, rate, and timing of the medication. Continuously delivers baclofen in small doses directly to the spinal fluid, increasing the therapeutic benefits and causing fewer and less severe side effects than the oral medication. Patients with a pump must return to their doctor's office for pump refills and medication adjustments, typically every 1-3 months. ITB SYSTEM MAINTENANCE AND REPAIR The catheter may kink, break or dislodge in up to 10% of cases and would require a surgery to revise it. The Synchromed II pump requires replacement for end of battery life within 7 years. This will require a surgery. The catheter is not required to be replaced, just the pump. INTRATHECAL BACLOFEN WITHDRAWAL Signs and symptoms of baclofen withdrawal often include diffuse body itching, increased stiffness and fever. I have reminded her to take 20mg of oral baclofen and contact our office if she has these symptoms. she may need to be seen in the emergency department. The baclofen withdrawal syndrome can progress to include confusion, sedation and even coma. In severe cases baclofen withdrawal can lead to kidney damage, seizures and possibly . A lumbar puncture with an injection of 50mcg intrathecal baclofen in the emergency department is often the best treatment to address severe balcofen withdrawal symptoms. INTRATHECAL BACLOFEN OVERDOSE Signs and symptoms of baclofen overdose often include sedation and confusion and most commonly occur recently following an ITB refill/program adjustment. I recommend Claudine Joseph contact our office prompts if these symptoms occur. The baclofen overdose syndrome can progress to include coma, seizures, respiratory and cardiac depression and possibly . I have reminded her to contact our office and go to the emergency room if she experiences these symptoms. A high volume lumbar puncture (removing 40cc of both CSF and intrathecal baclofen) in the emergency department is often the best treatment for severe baclofen overdose symptoms. ITB SYSTEM INFECTION Infection of the pump system can lead to meningitis (severe brain infection) and can be possibly fatal. Signs and symptoms of pump infection can include redness, swelling, or pain around the pump or surgical scar on the back. Fever and a stiff neck are also common. I recommend that Claudine Knapp Joseph go to the Emergency Department if she has any of signs/symptoms of pump infection. MRI SCANNING Synchromed II ITB pumps are MRI compatible including 3T strength scanners. The pump stops pumping temporarily when the patient is moved near the MRI machine. The pump automatically restarts once the patient moves away from the MRI machine. We follow a clinic best practice of interrogating the pump following MRI scans to ensure the ITB pump has restarted. This can often be arranged to be done by [employer] Event [employer] if scheduled during business hours. We recommend AGAINST any MRI scans scheduled outside of business hours. EDUCATION: HOT TUBs, STEAM ROOMS, SAUNAS AND TANNING BED We recommend patients avoid these, especially if over 102 degrees. Heating up your body causes the ITB pump to potential increase its flow rate, which could cause overdose/. EDUCATION: SCUBA DIVING We recommend that an ITB patient avoid depths below 33 feet (10 meters). Diving lower than this could permanently damage the pump. Also as you descend and the pressure around your body increases, pump flow can decrease. This could lead to baclofen withdrawal/. EDUCATION REGARDING DAYLIGHT SAVINGS TIME The clock inside the pump does not adjust for daylight savings time changes (spring forward and fall backwards). If you are on flex dosing or bolus dosing programming then your dosing will becomeshifted an hour, which may cause problems for the patient. The pump clock only corrects for daylight savings time after being interrogated by a it programmer analyst. The flex/bolus dosing patient should schedule a visit after a time change to reset their pump clocks. I spent 30 minutes face to face with the patient today. Over half the time was spent counseling regarding her spasticity as well as it's underlying medical condition, as well as her coordinating care.Thank you very much for allowing me to participate in this patient's care and please do not hesitate to contact me with questions or concerns. 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 Roxy RENE date: 43 (March 2023) Synchromed I IPump Size: 40 mL Willard Location: 11 oclock Catheter Tip Placement: PLAN REGARDING INTRATHECAL BACLOFEN THERAPY First Medication Brand: LIORESAL Concentration: 2000 mcg/mL Total Daily Dose: 649.8 mcg/day 1. Pump Programming: Simple Continuous 2. Pump Esto Refill: The injection site was prepped sterilely, landmarks were identified, and the pump was accessed with a coring needle. Approximately 4 (calculated 3.7) cc of clear, colorless fluid was removed from the reservoir. The reservoir was then refilled with 40 ml of 2000mcg/ml baclofen for intrathecal administration. No difficulties were noted, and the pressure was within acceptable limits. kit # 8566: concentration 2000 mcg/ml, volume 40 ml was used. 3. Programming Adjustments today: None; refill only 4. ITB system Procedures today: pump computer interrogation, pump computer reprogramming and pump reservoir refill 5. Last reservoir refill date: 10/19/19 6. Pump Low Esto Alarm Date: 02/12/20 7. Claudine Joseph and/or her caregivers have verbal consents to all of the ITB system adjustments and procedures performed today PLAN REGARDING ADJUNCTIVE SPASTICITY THERAPIES 1. Noxious stimulation worsens spasticity. This included when the weather is cold outside, urinary tract infections and other infections, pressure sores, poor seating or sleeping ergonomics, constipation and urinary retention. she is encouraged to report any of these symptoms. 2. We recommend practicing good spasticity hygiene: A. Stretch upon waking, partway through the day, and before bed every day B. Stay adequately hydrated C. Treat constipation, urinary retention, bladder infections D. Check dependant areas of the body every day for redness / skin breakdown E. Exercise! Movement is camejo. Try yoga, magan chi, or water aerobics. D. Stop to stretch during long periods of sitting (long car ride, business meeting) F. Don't get too cool. Cold often worsens spasticity. PLAN REGARDING FOLLOW UP 1. We will schedule follow up a week before her alarm date, which is 02/12/2020. 2. I strongly recommend that she keep an up-to-date emergency bottle of oral baclofen with her atall times to take for withdrawal symptoms. 3. I also recommend that she keep her [employer] identification card with our clinic contact information at all times. 4. Dr. Ngo can be reached for emergencies and after hours by calling the [facility] at . PATIENT AND CARE PROVIDER EDUCATION You can learn more about spasticity and ITB therapy at the following website: [email or web address] If you have a smart phone then we recommend you download the free pump partner application as well. It is a resource for ITB education and tracking your personalized therapy. SYNCHROMED II ITB SYSTEM The intrathecal baclofen pump system is the way our treatment team gives baclofen directly into thespinal fluid. The system consists of a catheter (a small, flexible tube) and a pump. The pump -- a round metal disc, about one inch thick and three inches in diameter -- is surgically placed under the skin of the abdomen near the waistline. The pump stores and releases prescribed amounts of medicine through the cathete directly to the spinal fluid. With a programmable pump, a tiny motor moves themedication from the pump reservoir through the catheter. Using an external it programmer analyst, your treatment team can make adjustments in the dose, rate, and timing of the medication. Continuously delivers baclofen in small doses directly to the spinal fluid, increasing the therapeutic benefits and causing fewer and less severe side effects than the oral medication. Patients with a pump must return to their doctor's office for pump refills and medication adjustments, typically every 1-3 months. ITB SYSTEM MAINTENANCE AND REPAIR The catheter may kink, break or dislodge in up to 10% of cases and would require a surgery to revise it. The Synchromed II pump requires replacement for end of battery life within 7 years. This will require a surgery. The catheter is not required to be replaced, just the pump. INTRATHECAL BACLOFEN WITHDRAWAL Signs and symptoms of baclofen withdrawal often include diffuse body itching, increased stiffness and fever. I have reminded her to take 20mg of oral baclofen and contact our office if she has these symptoms. she may need to be seen in the emergency department. The baclofen withdrawal syndrome can progress to include confusion, sedation and even coma. In severe cases baclofen withdrawal can lead to kidney damage, seizures and possibly . A lumbar puncture with an injection of 50mcg intrathecal baclofen in the emergency department is often the best treatment to address severe balcofen withdrawal symptoms. INTRATHECAL BACLOFEN OVERDOSE Signs and symptoms of baclofen overdose often include sedation and confusion and most commonly occur recently following an ITB refill/program adjustment. I recommend Claudine Joseph contact our office prompts if these symptoms occur. The baclofen overdose syndrome can progress to include coma, seizures, respiratory and cardiac depression and possibly . I have reminded her to contact our office and go to the emergency room if she experiences these symptoms. A high volume lumbar puncture (removing 40cc of both CSF and intrathecal baclofen) in the emergency department is often the best treatment for severe baclofen overdose symptoms. ITB SYSTEM INFECTION Infection of the pump system can lead to meningitis (severe brain infection) and can be possibly fatal. Signs and symptoms of pump infection can include redness, swelling, or pain around the pump or surgical scar on the back. Fever and a stiff neck are also common. I recommend that Claudine Joseph go to the Emergency Department if she has any of signs/symptoms of pump infection. MRI SCANNING Synchromed II ITB pumps are MRI compatible including 3T strength scanners. The pump stops pumping temporarily when the patient is moved near the MRI machine. The pump automatically restarts once the patient moves away from the MRI machine. We follow a clinic best practice of interrogating the pump following MRI scans to ensure the ITB pump has restarted. This can often be arranged to be done by [employer] Event Organiser if scheduled during business hours. We recommend AGAINST any MRI scans scheduled outside of business hours. EDUCATION: HOT TUBs, STEAM ROOMS, SAUNAS AND TANNING BED We recommend patients avoid these, especially if over 102 degrees. Heating up your body causes the ITB pump to potential increase its flow rate, which could cause overdose/. EDUCATION: SCUBA DIVING We recommend that an ITB patient avoid depths below 33 feet (10 meters). Diving lower than this could permanently damage the pump. Also as you descend and the pressure around your body increases, pump flow can decrease. This could lead to baclofen withdrawal/. EDUCATION REGARDING DAYLIGHT SAVINGS TIME The clock inside the pump does not adjust for daylight savings time changes (spring forward and fall backwards). If you are on flex dosing or bolus dosing programming then your dosing will becomeshifted an hour, which may cause problems for the patient. The pump clock only corrects for daylight savings time after being interrogated by a it programmer analyst. The flex/bolus dosing patient should schedule a visit after a time change to reset their pump clocks. I spent 30 minutes face to face with the patient today. Over half the time was spent counseling regarding her spasticity as well as it's underlying medical condition, as well as her coordinating care.Thank you very much for allowing me to participate in this patient's care and please do not hesitate to contact me with questions or concerns. Sincerely, Ruma Godwin MS, BSN, ACNP-BC, CNRN Acute Care Nurse Practitioner [facility] [address], [address] [place] [address] [email or web address] [phone] documented in this encounter* Patient Instructions* Ruma Godwin CNP - 02/08/2020 11:38 AM EDT INTRATHECAL BACLOFEN SYSTEM INFORMATION FOR Claudine Joseph Severe Spasticity due to: CP Implanted: [address] Roxy RENE date: 39 (March 2023) Synchromed I IPump Size: 40 mL [place] Location: 11 oclock Catheter Tip Placement: PLAN REGARDING INTRATHECAL BACLOFEN THERAPY First Medication Brand: LIORESAL Concentration: 2000 mcg/mL Total Daily Dose: 649.8 mcg/day 1. Pump Programming: Simple Continuous 2. Pump Esto Refill: The injection site was prepped sterilely, landmarks were identified, and the pump was accessed with a coring needle. Approximately 4 (calculated 3.7) cc of clear, colorless fluid was removed from the reservoir. The reservoir was then refilled with 40 ml of 2000,cg/ml baclofen for intrathecal administration. No difficulties were noted, and the pressure was within acceptable limits. kit # 8566: concentration 2000 mcg/ml, volume 40 ml was used. 3. Programming Adjustments today: None; refill only 4. ITB system Procedures today: pump computer interrogation, pump computer reprogramming and pump reservoir refill 5. Last reservoir refill date: 02/08/20 6. Pump Low Esto Alarm Date: 06/03/20 7. Claudine Joseph and/or her caregivers have verbal consents to all of the ITB system adjustments and procedures performed today PLAN REGARDING ADJUNCTIVE SPASTICITY THERAPIES 1. Noxious stimulation worsens spasticity. This included when the weather is cold outside, urinary tract infections and other infections, pressure sores, poor seating or sleeping ergonomics, constipation and urinary retention. she is encouraged to report any of these symptoms. 2. We recommend practicing good spasticity hygiene: A. Stretch upon waking, partway through the day, and before bed every day B. Stay adequately hydrated C. Treat constipation, urinary retention, bladder infections D. Check dependant areas of the body every day for redness / skin breakdown E. Exercise! Movement is camejo. Try yoga, magan chi, or water aerobics. D. Stop to stretch during long periods of sitting (long car ride, business meeting) F. Don't get too cool. Cold often worsens spasticity. PLAN REGARDING FOLLOW UP 1. We will schedule follow up a week before her alarm date, which is 06/03/2020. 2. I strongly recommend that she keep an up-to-date emergency bottle of oral baclofen with her atall times to take for withdrawal symptoms. 3. I also recommend that she keep her [employer] identification card with our clinic contact information at all times. 4. Dr. Ngo can be reached for emergencies and after hours by calling the [facility] at . PATIENT AND CARE PROVIDER EDUCATION You can learn more about spasticity and ITB therapy at the following website: [email or web address] If you have a smart phone then we recommend you download the free pump partner application as well. It is a resource for ITB education and tracking your personalized therapy. SYNCHROMED II ITB SYSTEM The intrathecal baclofen pump system is the way our treatment team gives baclofen directly into thespinal fluid. The system consists of a catheter (a small, flexible tube) and a pump. The pump -- a round metal disc, about one inch thick and three inches in diameter -- is surgically placed under the skin of the abdomen near the waistline. The pump stores and releases prescribed amounts of medicine through the cathete directly to the spinal fluid. With a programmable pump, a tiny motor moves themedication from the pump reservoir through the catheter. Using an external it programmer analyst, your treatment team can make adjustments in the dose, rate, and timing of the medication. Continuously delivers baclofen in small doses directly to the spinal fluid, increasing the therapeutic benefits and causing fewer and less severe side effects than the oral medication. Patients with a pump must return to their doctor's office for pump refills and medication adjustments, typically every 1-3 months. ITB SYSTEM MAINTENANCE AND REPAIR The catheter may kink, break or dislodge in up to 10% of cases and would require a surgery to revise it. The Synchromed II pump requires replacement for end of battery life within 7 years. This will require a surgery. The catheter is not required to be replaced, just the pump. INTRATHECAL BACLOFEN WITHDRAWAL Signs and symptoms of baclofen withdrawal often include diffuse body itching, increased stiffness and fever. I have reminded her to take 20mg of oral baclofen and contact our office if she has these symptoms. she may need to be seen in the emergency department. The baclofen withdrawal syndrome can progress to include confusion, sedation and even coma. In severe cases baclofen withdrawal can lead to kidney damage, seizures and possibly . A lumbar puncture with an injection of 50mcg intrathecal baclofen in the emergency department is often the best treatment to address severe balcofen withdrawal symptoms. INTRATHECAL BACLOFEN OVERDOSE Signs and symptoms of baclofen overdose often include sedation and confusion and most commonly occur recently following an ITB refill/program adjustment. I recommend Claudine Joseph contactour office prompts if these symptoms occur. The baclofen overdose syndrome can progress to include coma, seizures, respiratory and cardiac depression and possibly . I have reminded her to contact our office and go to the emergency room if she experiences these symptoms. A high volume lumbar puncture (removing 40cc of both CSF and intrathecal baclofen) in the emergency department is often thebest treatment for severe baclofen overdose symptoms. ITB SYSTEM INFECTION Infection of the pump system can lead to meningitis (severe brain infection) and can be possibly fatal. Signs and symptoms of pump infection can include redness, swelling, or pain around the pump or surgical scar on the back. Fever and a stiff neck are also common. I recommend that Claudine Sienayunier Joseph go to the Emergency Department if she has any of signs/symptoms of pump infection. MRI SCANNING Synchromed II ITB pumps are MRI compatible including 3T strength scanners. The pump stops pumping temporarily when the patient is moved near the MRI machine. The pump automatically restarts once the patient moves away from the MRI machine. We follow a clinic best practice of interrogating the pump following MRI scans to ensure the ITB pump has restarted. This can often be arranged to be done by [employer] Conference And Event Organiser if scheduled during business hours. We recommend AGAINST any MRI scans scheduled outside of business hours. EDUCATION: HOT TUBs, STEAM ROOMS, SAUNAS AND TANNING BED We recommend patients avoid these, especially if over 102 degrees. Heating up your body causes the ITB pump to potential increase its flow rate, which could cause overdose/. EDUCATION: SCUBA DIVING We recommend that an ITB patient avoid depths below 33 feet (10 meters). Diving lower than this could permanently damage the pump. Also as you descend and the pressure around your body increases, pump flow can decrease. This could lead to baclofen withdrawal/. EDUCATION REGARDING DAYLIGHT SAVINGS TIME The clock inside the pump does not adjust for daylight savings time changes (spring forward and fall backwards). If you are on flex dosing or bolus dosing programming then your dosing will becomeshifted an hour, which may cause problems for the patient. The pump clock only corrects for daylight savings time after being interrogated by a it programmer analyst. The flex/bolus dosing patient should schedule a visit after a time change to reset their pump clocks. I spent 30 minutes face to face with the patient today. Over half the time was spent counseling regarding her spasticity as well as it's underlying medical condition, as well as her coordinating care.Thank you very much for allowing me to participate in this patient's care and please do not hesitate to contact me with questions or concerns. 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 Roxy RENE date: 35 months (March 2023) Synchromed I IPump Size: 40 mL Willard Location: 11 oclock Catheter Tip Placement: PLAN REGARDING INTRATHECAL BACLOFEN THERAPY First Medication Brand: LIORESAL Concentration: 2000 mcg/mL Total Daily Dose: 649.8 mcg/day 1. Pump Programming: Simple Continuous 2. Pump Esto Refill: The injection site was prepped sterilely, landmarks were identified, and the pump was accessed with a coring needle. Approximately 5 (calculated 3.7) cc of clear, colorless fluid was removed from the reservoir. The reservoir was then refilled with 40 ml of 2000mcg/ml baclofen for intrathecal administration. No difficulties were noted, and the pressure was within acceptable limits. kit # 8566: concentration 2000 mcg/ml, volume 40 ml was used. 3. Programming Adjustments today: None; refill only 4. ITB system Procedures today: pump computer interrogation, pump computer reprogramming and pump reservoir refill 5. Last reservoir refill date: 05/30/20 6. Pump Low Esto Alarm Date: 09/23/20 7. Claudine Joseph and/or her caregivers have verbal consents to all of the ITB system adjustments and procedures performed today PLAN REGARDING ADJUNCTIVE SPASTICITY THERAPIES 1. Noxious stimulation worsens spasticity. This included when the weather is cold outside, urinary tract infections and other infections, pressure sores, poor seating or sleeping ergonomics, constipation and urinary retention. she is encouraged to report any of these symptoms. 2. We recommend practicing good spasticity hygiene: A. Stretch upon waking, partway through the day, and before bed every day B. Stay adequately hydrated C. Treat constipation, urinary retention, bladder infections D. Check dependant areas of the body every day for redness / skin breakdown E. Exercise! Movement is camejo. Try yoga, magan chi, or water aerobics. D. Stop to stretch during long periods of sitting (long car ride, business meeting) F. Don't get too cool. Cold often worsens spasticity. PLAN REGARDING FOLLOW UP 1. We will schedule follow up a week before her alarm date, which is 09/23/2020. 2. I strongly recommend that she keep an up-to-date emergency bottle of oral baclofen with her atall times to take for withdrawal symptoms. 3. I also recommend that she keep her [employer] identification card with our clinic contact information at all times. 4. Dr. Ngo can be reached for emergencies and after hours by calling the [facility] at PATIENT AND CARE PROVIDER EDUCATION You can learn more about spasticity and ITB therapy at the following website: [email or web address] If you have a smart phone then we recommend you download the free pump partner application as well. It is a resource for ITB education and tracking your personalized therapy. SYNCHROMED II ITB SYSTEM The intrathecal baclofen pump system is the way our treatment team gives baclofen directly into thespinal fluid. The system consists of a catheter (a small, flexible tube) and a pump. The pump -- a round metal disc, about one inch thick and three inches in diameter -- is surgically placed under the skin of the abdomen near the waistline. The pump stores and releases prescribed amounts of medicine through the cathete directly to the spinal fluid. With a programmable pump, a tiny motor moves themedication from the pump reservoir through the catheter. Using an external it programmer analyst, your treatment team can make adjustments in the dose, rate, and timing of the medication. Continuously delivers baclofen in small doses directly to the spinal fluid, increasing the therapeutic benefits and causing fewer and less severe side effects than the oral medication. Patients with a pump must return to their doctor's office for pump refills and medication adjustments, typically every 1-3 months. ITB SYSTEM MAINTENANCE AND REPAIR The catheter may kink, break or dislodge in up to 10% of cases and would require a surgery to revise it. The Synchromed II pump requires replacement for end of battery life within 7 years. This will require a surgery. The catheter is not required to be replaced, just the pump. INTRATHECAL BACLOFEN WITHDRAWAL Signs and symptoms of baclofen withdrawal often include diffuse body itching, increased stiffness and fever. I have reminded her to take 20mg of oral baclofen and contact our office if she has these symptoms. she may need to be seen in the emergency department. The baclofen withdrawal syndrome can progress to include confusion, sedation and even coma. In severe cases baclofen withdrawal can lead to kidney damage, seizures and possibly . A lumbar puncture with an injection of 50mcg intrathecal baclofen in the emergency department is often the best treatment to address severe balcofen withdrawal symptoms. INTRATHECAL BACLOFEN OVERDOSE Signs and symptoms of baclofen overdose often include sedation and confusion and most commonly occur recently following an ITB refill/program adjustment. I recommend Claudine Joseph contactour office prompts if these symptoms occur. The baclofen overdose syndrome can progress to include coma, seizures, respiratory and cardiac depression and possibly . I have reminded her to contact our office and go to the emergency room if she experiences these symptoms. A high volume lumbar puncture (removing 40cc of both CSF and intrathecal baclofen) in the emergency department is often thebest treatment for severe baclofen overdose symptoms. ITB SYSTEM INFECTION Infection of the pump system can lead to meningitis (severe brain infection) and can be possibly fatal. Signs and symptoms of pump infection can include redness, swelling, or pain around the pump or surgical scar on the back. Fever and a stiff neck are also common. I recommend that Claudine Joseph go to the Emergency Department if she has any of signs/symptoms of pump infection. MRI SCANNING Synchromed II ITB pumps are MRI compatible including 3T strength scanners. The pump stops pumping temporarily when the patient is moved near the MRI machine. The pump automatically restarts once the patient moves away from the MRI machine. We follow a clinic best practice of interrogating the pump following MRI scans to ensure the ITB pump has restarted. This can often be arranged to be done by [employer] Conference And Event Organiser if scheduled during business hours. We recommend AGAINST any MRI scans scheduled outside of business hours. EDUCATION: HOT TUBs, STEAM ROOMS, SAUNAS AND TANNING BED We recommend patients avoid these, especially if over 102 degrees. Heating up your body causes the ITB pump to potential increase its flow rate, which could cause overdose/. EDUCATION: SCUBA DIVING We recommend that an ITB patient avoid depths below 33 feet (10 meters). Diving lower than this could permanently damage the pump. Also as you descend and the pressure around your body increases, pump flow can decrease. This could lead to baclofen withdrawal/. EDUCATION REGARDING DAYLIGHT SAVINGS TIME The clock inside the pump does not adjust for daylight savings time changes (spring forward and fall backwards). If you are on flex dosing or bolus dosing programming then your dosing will becomeshifted an hour, which may cause problems for the patient. The pump clock only corrects for daylight savings time after being interrogated by a it programmer analyst. The flex/bolus dosing patient should schedule a visit after a time change to reset their pump clocks. I spent 30 minutes face to face with the patient today. Over half the time was spent counseling regarding her spasticity as well as it's underlying medical condition, as well as her coordinating care.Thank you very much for allowing me to participate in this patient's care and please do not hesitate to contact me with questions or concerns. 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 Roxy RENE date: 32 months (March 2023) Synchromed I IPump Size: 40 mL Willard Location: 11 oclock Catheter Tip Placement: PLAN REGARDING INTRATHECAL BACLOFEN THERAPY First Medication Brand: LIORESAL Concentration: 2000 mcg/mL Total Daily Dose: 649.8 mcg/day 1. Pump Programming: Simple Continuous 2. Pump Esto Refill: The injection site was prepped sterilely, landmarks were identified, and the pump was accessed with a coring needle. Approximately 5 (calculated 3.7) cc of clear, colorless fluid was removed from the reservoir. The reservoir was then refilled with 40 ml of 2000mcg/ml baclofen for intrathecal administration. No difficulties were noted, and the pressure was within acceptable limits. kit # 8566: concentration 2000 mcg/ml, volume 40 ml was used. 3. Programming Adjustments today: None; refill only 4. ITB system Procedures today: pump computer interrogation, pump computer reprogramming and pump reservoir refill 5. Last reservoir refill date: 09/19/20 6. Pump Low Esto Alarm Date: 01/13/21 7. Claudine Joseph and/or her caregivers have verbal consents to all of the ITB system adjustments and procedures performed today PLAN REGARDING ADJUNCTIVE SPASTICITY THERAPIES 1. Noxious stimulation worsens spasticity. This included when the weather is cold outside, urinary tract infections and other infections, pressure sores, poor seating or sleeping ergonomics, constipation and urinary retention. she is encouraged to report any of these symptoms. 2. We recommend practicing good spasticity hygiene: A. Stretch upon waking, partway through the day, and before bed every day B. Stay adequately hydrated C. Treat constipation, urinary retention, bladder infections D. Check dependant areas of the body every day for redness / skin breakdown E. Exercise! Movement is camejo. Try yoga, magan chi, or water aerobics. D. Stop to stretch during long periods of sitting (long car ride, business meeting) F. Don't get too cool. Cold often worsens spasticity. PLAN REGARDING FOLLOW UP 1. We will schedule follow up a week before her alarm date, which is 01/13/2021. 2. I strongly recommend that she keep an up-to-date emergency bottle of oral baclofen with her atall times to take for withdrawal symptoms. 3. I also recommend that she keep her [employer] identification card with our clinic contact information at all times. 4. [facility] can be reached for emergencies and after hours by calling the [facility] at PATIENT AND CARE PROVIDER EDUCATION You can learn more about spasticity and ITB therapy at the following website: [email or web address] If you have a smart phone then we recommend you download the free pump partner application as well. It is a resource for ITB education and tracking your personalized therapy. SYNCHROMED II ITB SYSTEM The intrathecal baclofen pump system is the way our treatment team gives baclofen directly into thespinal fluid. The system consists of a catheter (a small, flexible tube) and a pump. The pump -- a round metal disc, about one inch thick and three inches in diameter -- is surgically placed under the skin of the abdomen near the waistline. The pump stores and releases prescribed amounts of medicine through the cathete directly to the spinal fluid. With a programmable pump, a tiny motor moves themedication from the pump reservoir through the catheter. Using an external it programmer analyst, your treatment team can make adjustments in the dose, rate, and timing of the medication. Continuously delivers baclofen in small doses directly to the spinal fluid, increasing the therapeutic benefits and causing fewer and less severe side effects than the oral medication. Patients with a pump must return to their doctor's office for pump refills and medication adjustments, typically every 1-3 months. ITB SYSTEM MAINTENANCE AND REPAIR The catheter may kink, break or dislodge in up to 10% of cases and would require a surgery to revise it. The Synchromed II pump requires replacement for end of battery life within 7 years. This will require a surgery. The catheter is not required to be replaced, just the pump. INTRATHECAL BACLOFEN WITHDRAWAL Signs and symptoms of baclofen withdrawal often include diffuse body itching, increased stiffness and fever. I have reminded her to take 20mg of oral baclofen and contact our office if she has these symptoms. she may need to be seen in the emergency department. The baclofen withdrawal syndrome can progress to include confusion, sedation and even coma. In severe cases baclofen withdrawal can lead to kidney damage, seizures and possibly . A lumbar puncture with an injection of 50mcg intrathecal baclofen in the emergency department is often the best treatment to address severe balcofen withdrawal symptoms. INTRATHECAL BACLOFEN OVERDOSE Signs and symptoms of baclofen overdose often include sedation and confusion and most commonly occur recently following an ITB refill/program adjustment. I recommend Claudine Joseph contactour office prompts if these symptoms occur. The baclofen overdose syndrome can progress to include coma, seizures, respiratory and cardiac depression and possibly . I have reminded her to contact our office and go to the emergency room if she experiences these symptoms. A high volume lumbar puncture (removing 40cc of both CSF and intrathecal baclofen) in the emergency department is often thebest treatment for severe baclofen overdose symptoms. ITB SYSTEM INFECTION Infection of the pump system can lead to meningitis (severe brain infection) and can be possibly fatal. Signs and symptoms of pump infection can include redness, swelling, or pain around the pump or surgical scar on the back. Fever and a stiff neck are also common. I recommend that Claudine Joseph go to the Emergency Department if she has any of signs/symptoms of pump infection. MRI SCANNING Synchromed II ITB pumps are MRI compatible including 3T strength scanners. The pump stops pumping temporarily when the patient is moved near the MRI machine. The pump automatically restarts once the patient moves away from the MRI machine. We follow a clinic best practice of interrogating the pump following MRI scans to ensure the ITB pump has restarted. This can often be arranged to be done by [employer] Conference And Event Organiser if scheduled during business hours. We recommend AGAINST any MRI scans scheduled outside of business hours. EDUCATION: HOT TUBs, STEAM ROOMS, SAUNAS AND TANNING BED We recommend patients avoid these, especially if over 102 degrees. Heating up your body causes the ITB pump to potential increase its flow rate, which could cause overdose/. EDUCATION: SCUBA DIVING We recommend that an ITB patient avoid depths below 33 feet (10 meters). Diving lower than this could permanently damage the pump. Also as you descend and the pressure around your body increases, pump flow can decrease. This could lead to baclofen withdrawal/. EDUCATION REGARDING DAYLIGHT SAVINGS TIME The clock inside the pump does not adjust for daylight savings time changes (spring forward and fall backwards). If you are on flex dosing or bolus dosing programming then your dosing will becomeshifted an hour, which may cause problems for the patient. The pump clock only corrects for daylight savings time after being interrogated by a it programmer analyst. The flex/bolus dosing patient should schedule a visit after a time change to reset their pump clocks. I spent 30 minutes face to face with the patient today. Over half the time was spent counseling regarding her spasticity as well as it's underlying medical condition, as well as her coordinating care.Thank you very much for allowing me to participate in this patient's care and please do not hesitate to contact me with questions or concerns. Sincerely, Ruma Godwin MS, BSN, ACNP-BC, CNRN Acute Care Nurse Practitioner [facility] [address], [address] [place] [address] Office [phone] documented in this encounter* Patient Instructions* Ruma Godwin, DIRECTOR OF GLOBAL SALES - 09/19/2020 10:22 AM EST INTRATHECAL BACLOFEN SYSTEM INFORMATION FOR Claudine Joseph Severe Spasticity due to: CP Implanted: [address] Roxy RENE date: 32 months (March 2023) Synchromed I IPump Size: 40 mL [place]ard Location: 11 oclock Catheter Tip Placement: PLAN REGARDING INTRATHECAL BACLOFEN THERAPY First Medication Brand: LIORESAL Concentration: 2000 mcg/mL Total Daily Dose: 649.8 mcg/day 1. Pump Programming: Simple Continuous 2. Pump Esto Refill: The injection site was prepped sterilely, landmarks were identified, and the pump was accessed with a coring needle. Approximately 5 (calculated 3.7) cc of clear, colorless fluid was removed from the reservoir. The reservoir was then refilled with 40 ml of 2000mcg/ml baclofen for intrathecal administration. No difficulties were noted, and the pressure was within acceptable limits. kit # 8566: concentration 2000 mcg/ml, volume 40 ml was used. 3. Programming Adjustments today: None; refill only 4. ITB system Procedures today: pump computer interrogation, pump computer reprogramming and pump reservoir refill 5. Last reservoir refill date: 09/19/20 6. Pump Low Esto Alarm Date: 01/13/21 7. Claudine Joseph and/or her caregivers have verbal consents to all of the ITB system adjustments and procedures performed today PLAN REGARDING ADJUNCTIVE SPASTICITY THERAPIES 1. Noxious stimulation worsens spasticity. This included when the weather is cold outside, urinary tract infections and other infections, pressure sores, poor seating or sleeping ergonomics, constipation and urinary retention. she is encouraged to report any of these symptoms. 2. We recommend practicing good spasticity hygiene: A. Stretch upon waking, partway through the day, and before bed every day B. Stay adequately hydrated C. Treat constipation, urinary retention, bladder infections D. Check dependant areas of the body every day for redness / skin breakdown E. Exercise! Movement is camejo. Try yoga, magan chi, or water aerobics. D. Stop to stretch during long periods of sitting (long car ride, business meeting) F. Don't get too cool. Cold often worsens spasticity. PLAN REGARDING FOLLOW UP 1. We will schedule follow up a week before her alarm date, which is 01/13/2021. 2. I strongly recommend that she keep an up-to-date emergency bottle of oral baclofen with her atall times to take for withdrawal symptoms. 3. I also recommend that she keep her [employer] identification card with our clinic contact information at all times. 4. [facility] can be reached for emergencies and after hours by calling the [facility] at PATIENT AND CARE PROVIDER EDUCATION You can learn more about spasticity and ITB therapy at the following website: [email or web address] If you have a smart phone then we recommend you download the free pump partner application as well. It is a resource for ITB education and tracking your personalized therapy. SYNCHROMED II ITB SYSTEM The intrathecal baclofen pump system is the way our treatment team gives baclofen directly into thespinal fluid. The system consists of a catheter (a small, flexible tube) and a pump. The pump -- a round metal disc, about one inch thick and three inches in diameter -- is surgically placed under the skin of the abdomen near the waistline. The pump stores and releases prescribed amounts of medicine through the cathete directly to the spinal fluid. With a programmable pump, a tiny motor moves themedication from the pump reservoir through the catheter. Using an external it programmer analyst, your treatment team can make adjustments in the dose, rate, and timing of the medication. Continuously delivers baclofen in small doses directly to the spinal fluid, increasing the therapeutic benefits and causing fewer and less severe side effects than the oral medication. Patients with a pump must return to their doctor's office for pump refills and medication adjustments, typically every 1-3 months. ITB SYSTEM MAINTENANCE AND REPAIR The catheter may kink, break or dislodge in up to 10% of cases and would require a surgery to revise it. The Synchromed II pump requires replacement for end of battery life within 7 years. This will require a surgery. The catheter is not required to be replaced, just the pump. INTRATHECAL BACLOFEN WITHDRAWAL Signs and symptoms of baclofen withdrawal often include diffuse body itching, increased stiffness and fever. I have reminded her to take 20mg of oral baclofen and contact our office if she has these symptoms. she may need to be seen in the emergency department. The baclofen withdrawal syndrome can progress to include confusion, sedation and even coma. In severe cases baclofen withdrawal can lead to kidney damage, seizures and possibly . A lumbar puncture with an injection of 50mcg intrathecal baclofen in the emergency department is often the best treatment to address severe balcofen withdrawal symptoms. INTRATHECAL BACLOFEN OVERDOSE Signs and symptoms of baclofen overdose often include sedation and confusion and most commonly occur recently following an ITB refill/program adjustment. I recommend Claudine Joseph contactour office prompts if these symptoms occur. The baclofen overdose syndrome can progress to include coma, seizures, respiratory and cardiac depression and possibly . I have reminded her to contact our office and go to the emergency room if she experiences these symptoms. A high volume lumbar puncture (removing 40cc of both CSF and intrathecal baclofen) in the emergency department is often thebest treatment for severe baclofen overdose symptoms. ITB SYSTEM INFECTION Infection of the pump system can lead to meningitis (severe brain infection) and can be possibly fatal. Signs and symptoms of pump infection can include redness, swelling, or pain around the pump or surgical scar on the back. Fever and a stiff neck are also common. I recommend that Claudine Joseph go to the Emergency Department if she has any of signs/symptoms of pump infection. MRI SCANNING Synchromed II ITB pumps are MRI compatible including 3T strength scanners. The pump stops pumping temporarily when the patient is moved near the MRI machine. The pump automatically restarts once the patient moves away from the MRI machine. We follow a clinic best practice of interrogating the pump following MRI scans to ensure the ITB pump has restarted. This can often be arranged to be done by [facility] Conference And Event Organiser if scheduled during business hours. We recommend AGAINST any MRI scans scheduled outside of business hours. EDUCATION: HOT TUBs, STEAM ROOMS, SAUNAS AND TANNING BED We recommend patients avoid these, especially if over 102 degrees. Heating up your body causes the ITB pump to potential increase its flow rate, which could cause overdose/. EDUCATION: SCUBA DIVING We recommend that an ITB patient avoid depths below 33 feet (10 meters). Diving lower than this could permanently damage the pump. Also as you descend and the pressure around your body increases, pump flow can decrease. This could lead to baclofen withdrawal/. EDUCATION REGARDING DAYLIGHT SAVINGS TIME The clock inside the pump does not adjust for daylight savings time changes (spring forward and fall backwards). If you are on flex dosing or bolus dosing programming then your dosing will becomeshifted an hour, which may cause problems for the patient. The pump clock only corrects for daylight savings time after being interrogated by a it programmer analyst. The flex/bolus dosing patient should schedule a visit after a time change to reset their pump clocks. I spent 30 minutes face to face with the patient today. Over half the time was spent counseling regarding her spasticity as well as it's underlying medical condition, as well as her coordinating care.Thank you very much for allowing me to participate in this patient's care and please do not hesitate to contact me with questions or concerns. Sincerely, Ruma Godwin MS, BSN, ACNP-BC, CNRN Acute Care Nurse Practitioner [facility] [address], [id number] [place] [address] Office [phone] documented in this encounter* Patient Instructions* Ruma Godwin CNP - 02/08/2020 11:38 AM EDT INTRATHECAL BACLOFEN SYSTEM INFORMATION FOR Claudine Joseph Severe Spasticity due to: CP Implanted: [address] Roxy RENE date: 39 (March 2023) Synchromed I IPump Size: 40 mL Willard Location: 11 oclock Catheter Tip Placement: PLAN REGARDING INTRATHECAL BACLOFEN THERAPY First Medication Brand: LIORESAL Concentration: 2000 mcg/mL Total Daily Dose: 649.8 mcg/day 1. Pump Programming: Simple Continuous 2. Pump Esto Refill: The injection site was prepped sterilely, landmarks were identified, and the pump was accessed with a coring needle. Approximately 4 (calculated 3.7) cc of clear, colorless fluid was removed from the reservoir. The reservoir was then refilled with 40 ml of 2000,cg/ml baclofen for intrathecal administration. No difficulties were noted, and the pressure was within acceptable limits. kit # 8566: concentration 2000 mcg/ml, volume 40 ml was used. 3. Programming Adjustments today: None; refill only 4. ITB system Procedures today: pump computer interrogation, pump computer reprogramming and pump reservoir refill 5. Last reservoir refill date: 02/08/20 6. Pump Low Esto Alarm Date: 06/03/20 7. Claudine Joseph and/or her caregivers have verbal consents to all of the ITB system adjustments and procedures performed today PLAN REGARDING ADJUNCTIVE SPASTICITY THERAPIES 1. Noxious stimulation worsens spasticity. This included when the weather is cold outside, urinary tract infections and other infections, pressure sores, poor seating or sleeping ergonomics, constipation and urinary retention. she is encouraged to report any of these symptoms. 2. We recommend practicing good spasticity hygiene: A. Stretch upon waking, partway through the day, and before bed every day B. Stay adequately hydrated C. Treat constipation, urinary retention, bladder infections D. Check dependant areas of the body every day for redness / skin breakdown E. Exercise! Movement is camejo. Try yoga, magan chi, or water aerobics. D. Stop to stretch during long periods of sitting (long car ride, business meeting) F. Don't get too cool. Cold often worsens spasticity. PLAN REGARDING FOLLOW UP 1. We will schedule follow up a week before her alarm date, which is 06/03/2020. 2. I strongly recommend that she keep an up-to-date emergency bottle of oral baclofen with her atall times to take for withdrawal symptoms. 3. I also recommend that she keep her [employer] identification card with our clinic contact information at all times. 4. Dr. Ngo can be reached for emergencies and after hours by calling the [facility] at . PATIENT AND CARE PROVIDER EDUCATION You can learn more about spasticity and ITB therapy at the following website: [email or web address] If you have a smart phone then we recommend you download the free pump partner application as well. It is a resource for ITB education and tracking your personalized therapy. SYNCHROMED II ITB SYSTEM The intrathecal baclofen pump system is the way our treatment team gives baclofen directly into thespinal fluid. The system consists of a catheter (a small, flexible tube) and a pump. The pump -- a round metal disc, about one inch thick and three inches in diameter -- is surgically placed under the skin of the abdomen near the waistline. The pump stores and releases prescribed amounts of medicine through the cathete directly to the spinal fluid. With a programmable pump, a tiny motor moves themedication from the pump reservoir through the catheter. Using an external it programmer analyst, your treatment team can make adjustments in the dose, rate, and timing of the medication. Continuously delivers baclofen in small doses directly to the spinal fluid, increasing the therapeutic benefits and causing fewer and less severe side effects than the oral medication. Patients with a pump must return to their doctor's office for pump refills and medication adjustments, typically every 1-3 months. ITB SYSTEM MAINTENANCE AND REPAIR The catheter may kink, break or dislodge in up to 10% of cases and would require a surgery to revise it. The Synchromed II pump requires replacement for end of battery life within 7 years. This will require a surgery. The catheter is not required to be replaced, just the pump. INTRATHECAL BACLOFEN WITHDRAWAL Signs and symptoms of baclofen withdrawal often include diffuse body itching, increased stiffness and fever. I have reminded her to take 20mg of oral baclofen and contact our office if she has these symptoms. she may need to be seen in the emergency department. The baclofen withdrawal syndrome can progress to include confusion, sedation and even coma. In severe cases baclofen withdrawal can lead to kidney damage, seizures and possibly . A lumbar puncture with an injection of 50mcg intrathecal baclofen in the emergency department is often the best treatment to address severe balcofen withdrawal symptoms. INTRATHECAL BACLOFEN OVERDOSE Signs and symptoms of baclofen overdose often include sedation and confusion and most commonly occur recently following an ITB refill/program adjustment. I recommend Claudine Joseph contactour office prompts if these symptoms occur. The baclofen overdose syndrome can progress to include coma, seizures, respiratory and cardiac depression and possibly . I have reminded her to contact our office and go to the emergency room if she experiences these symptoms. A high volume lumbar puncture (removing 40cc of both CSF and intrathecal baclofen) in the emergency department is often thebest treatment for severe baclofen overdose symptoms. ITB SYSTEM INFECTION Infection of the pump system can lead to meningitis (severe brain infection) and can be possibly fatal. Signs and symptoms of pump infection can include redness, swelling, or pain around the pump or surgical scar on the back. Fever and a stiff neck are also common. I recommend that Claudine Joseph go to the Emergency Department if she has any of signs/symptoms of pump infection. MRI SCANNING Synchromed II ITB pumps are MRI compatible including 3T strength scanners. The pump stops pumping temporarily when the patient is moved near the MRI machine. The pump automatically restarts once the patient moves away from the MRI machine. We follow a clinic best practice of interrogating the pump following MRI scans to ensure the ITB pump has restarted. This can often be arranged to be done by [employer] Conference And Event Organiser if scheduled during business hours. We recommend AGAINST any MRI scans scheduled outside of business hours. EDUCATION: HOT TUBs, STEAM ROOMS, SAUNAS AND TANNING BED We recommend patients avoid these, especially if over 102 degrees. Heating up your body causes the ITB pump to potential increase its flow rate, which could cause overdose/. EDUCATION: SCUBA DIVING We recommend that an ITB patient avoid depths below 33 feet (10 meters). Diving lower than this could permanently damage the pump. Also as you descend and the pressure around your body increases, pump flow can decrease. This could lead to baclofen withdrawal/. EDUCATION REGARDING DAYLIGHT SAVINGS TIME The clock inside the pump does not adjust for daylight savings time changes (spring forward and fall backwards). If you are on flex dosing or bolus dosing programming then your dosing will becomeshifted an hour, which may cause problems for the patient. The pump clock only corrects for daylight savings time after being interrogated by a it programmer analyst. The flex/bolus dosing patient should schedule a visit after a time change to reset their pump clocks. I spent 30 minutes face to face with the patient today. Over half the time was spent counseling regarding her spasticity as well as it's underlying medical condition, as well as her coordinating care.Thank you very much for allowing me to participate in this patient's care and please do not hesitate to contact me with questions or concerns. Sincerely, Ruma Godwin MS, BSN, ACNP-BC, CNRN Acute Care Nurse Practitioner [facility] [address] [place], [address] [place] [address] [email or web address] Office [phone] documented in this encounter* Patient Instructions* Yany Wright CNP - 10/02/2020 11:59 AM EST Call or MyChart with questions, concerns or any seizure activity. I sent prescriptions for Lamictal, Keppra, and Valium to your pharmacy. I think the Epidiolex to the [facility] pharmacy. documented in this encounter* Patient Instructions* Ruma Godwin CNP - 03/09/2019 11:18 AM EDT INTRATHECAL BACLOFEN SYSTEM INFORMATION FOR Claudine Joseph Severe Spasticity due to: CP Implanted: [address] Roxy RENE date: 50 (March 2023) Synchromed I IPump Size: 40 mL Willard Location: 11 oclock Catheter Tip Placement: PLAN REGARDING INTRATHECAL BACLOFEN THERAPY First Medication Brand: LIORESAL Concentration: 2000 mcg/mL Total Daily Dose: 649.8 mcg/day 1. Pump Programming: Simple Continuous 2. Pump Esto Refill: The injection site was prepped sterilely, landmarks were identified, and the pump was accessed with a coring needle. Approximately 6 (calculated 5) cc of clear, colorless fluid was removed from the reservoir. The reservoir was then refilled with 40 ml of 2000mcg/ml baclofen for intrathecal administration. No difficulties were noted, and the pressure was within acceptablelimits. kit # 8566: concentration 2000 mcg/ml, volume 40 ml was used. 3. Programming Adjustments today: None; refill only 4. ITB system Procedures today: pump computer interrogation, pump computer reprogramming and pump reservoir refill 5. Last reservoir refill date: 03/09/19 6. Pump Low Esto Alarm Date: 07/03/19 7. Claudine Joseph and/or her caregivers have verbal consents to all of the ITB system adjustments and procedures performed today PLAN REGARDING ADJUNCTIVE SPASTICITY THERAPIES 1. Noxious stimulation worsens spasticity. This included when the weather is cold outside, urinary tract infections and other infections, pressure sores, poor seating or sleeping ergonomics, constipation and urinary retention. she is encouraged to report any of these symptoms. 2. We recommend practicing good spasticity hygiene: A. Stretch upon waking, partway through the day, and before bed every day B. Stay adequately hydrated C. Treat constipation, urinary retention, bladder infections D. Check dependant areas of the body every day for redness / skin breakdown E. Exercise! Movement is camejo. Try yoga, magan chi, or water aerobics. D. Stop to stretch during long periods of sitting (long car ride, business meeting) F. Don't get too cool. Cold often worsens spasticity. 3. We provided refill on Emla cream. PLAN REGARDING FOLLOW UP 1. We will schedule follow up a week before her alarm date, which is 07/03/19. 2. I strongly recommend that she keep an up-to-date emergency bottle of oral baclofen with her atall times to take for withdrawal symptoms. 3. I also recommend that she keep her [employer] identification card with our clinic contact information at all times. 4. Dr. Murphy and Dr. Ngo can be reached for emergencies and after hours by calling the [facility] at PATIENT AND CARE PROVIDER EDUCATION You can learn more about spasticity and ITB therapy at the following website: [email or web address] If you have a smart phone then we recommend you download the free pump partner application as well. It is a resource for ITB education and tracking your personalized therapy. SYNCHROMED II ITB SYSTEM The intrathecal baclofen pump system is the way our treatment team gives baclofen directly into thespinal fluid. The system consists of a catheter (a small, flexible tube) and a pump. The pump -- a round metal disc, about one inch thick and three inches in diameter -- is surgically placed under the skin of the abdomen near the waistline. The pump stores and releases prescribed amounts of medicine through the cathete directly to the spinal fluid. With a programmable pump, a tiny motor moves themedication from the pump reservoir through the catheter. Using an external it programmer analyst, your treatment team can make adjustments in the dose, rate, and timing of the medication. Continuously delivers baclofen in small doses directly to the spinal fluid, increasing the therapeutic benefits and causing fewer and less severe side effects than the oral medication. Patients with a pump must return to their doctor's office for pump refills and medication adjustments, typically every 1-3 months. ITB SYSTEM MAINTENANCE AND REPAIR The catheter may kink, break or dislodge in up to 10% of cases and would require a surgery to revise it. The Synchromed II pump requires replacement for end of battery life within 7 years. This will require a surgery. The catheter is not required to be replaced, just the pump. INTRATHECAL BACLOFEN WITHDRAWAL Signs and symptoms of baclofen withdrawal often include diffuse body itching, increased stiffness and fever. I have reminded her to take 20mg of oral baclofen and contact our office if she has these symptoms. she may need to be seen in the emergency department. The baclofen withdrawal syndrome can progress to include confusion, sedation and even coma. In severe cases baclofen withdrawal can lead to kidney damage, seizures and possibly . A lumbar puncture with an injection of 50mcg intrathecal baclofen in the emergency department is often the best treatment to address severe balcofen withdrawal symptoms. INTRATHECAL BACLOFEN OVERDOSE Signs and symptoms of baclofen overdose often include sedation and confusion and most commonly occur recently following an ITB refill/program adjustment. I recommend Claudine Joseph contact our office prompts if these symptoms occur. The baclofen overdose syndrome can progress to include coma, seizures, respiratory and cardiac depression and possibly . I have reminded her to contact our office and go to the emergency room if she experiences these symptoms. A high volume lumbar puncture (removing 40cc of both CSF and intrathecal baclofen) in the emergency department is often the best treatment for severe baclofen overdose symptoms. ITB SYSTEM INFECTION Infection of the pump system can lead to meningitis (severe brain infection) and can be possibly fatal. Signs and symptoms of pump infection can include redness, swelling, or pain around the pump or surgical scar on the back. Fever and a stiff neck are also common. I recommend that Claudine Knapp Joseph go to the Emergency Department if she has any of signs/symptoms of pump infection. MRI SCANNING Synchromed II ITB pumps are MRI compatible including 3T strength scanners. The pump stops pumping temporarily when the patient is moved near the MRI machine. The pump automatically restarts once the patient moves away from the MRI machine. We follow a clinic best practice of interrogating the pump following MRI scans to ensure the ITB pump has restarted. This can often be arranged to be done by [facility] Conference And Event Organiser if scheduled during business hours. We recommend AGAINST any MRI scans scheduled outside of business hours. EDUCATION: HOT TUBs, STEAM ROOMS, SAUNAS AND TANNING BED We recommend patients avoid these, especially if over 102 degrees. Heating up your body causes the ITB pump to potential increase its flow rate, which could cause overdose/. EDUCATION: SCUBA DIVING We recommend that an ITB patient avoid depths below 33 feet (10 meters). Diving lower than this could permanently damage the pump. Also as you descend and the pressure around your body increases, pump flow can decrease. This could lead to baclofen withdrawal/. EDUCATION REGARDING DAYLIGHT SAVINGS TIME The clock inside the pump does not adjust for daylight savings time changes (spring forward and fall backwards). If you are on flex dosing or bolus dosing programming then your dosing will becomeshifted an hour, which may cause problems for the patient. The pump clock only corrects for daylight savings time after being interrogated by a it programmer analyst. The flex/bolus dosing patient should schedule a visit after a time change to reset their pump clocks. I spent 30 minutes face to face with the patient today. Over half the time was spent counseling regarding her spasticity as well as it's underlying medical condition, as well as her coordinating care.Thank you very much for allowing me to participate in this patient's care and please do not hesitate to contact me with questions or concerns. Sincerely, Ruma Godwin MS, BSN, ACNP-BC, CNRN Acute Care Nurse Practitioner [facility] [address], [address] [place] [address] [email or web address] Office [phone] documented in this encounter Summary Purpose Family History No Family History Records FoundNo Family History Records FoundNo Family History Records FoundNo Family History Records FoundNo Family History Records FoundNo Family History Records FoundNo Family History Records FoundNo Family History Records FoundNo Family History Records FoundNo Family History Records FoundNo Family History Records FoundNo Family History Records Found Advance Directives No Advanced Directives Records FoundLatest Code Status on File Code Status Date Activated Date Inactivated Comments Full Code 11/21/2016 2:22 PM 11/24/2016 5:57 PM Full Code - Unverified 11/21/2016 12:25 PM 11/21/2016 2: 22 PM Full Code 07/31/2016 1:46 AM 08/02/2016 4:11 PM Full Code - Unverified 07/27/2016 7:31 AM 07/29/2016 1 :05 PM Full Code 05/14/2016 2:30 PM 05/21/2016 2:51 PM Latest Code Status on File Code Status Date Activated Date Inactivated Comments Full Code 11/29/2018 2:17 AM Full Code - Unverified 11/29/2018 1:32 AM 11/29/2018 2:17 AM Full Code 11/21/2016 2:22 PM 11/24/2016 5:57 PM Documents on File Type Date Recorded Patient Conference And Event Organiser Expl anation Advance Directives and Livin g Will 11/28/2018 5:40 PM Documents on File Type Date Recorded Patient Conference And Event Organiser Expl anation Advance Directives and Livin g Will 05/04/2019 4:30 PM Latest Code Status on File Code Status Date Activated Date Inactivated Comments Full Code 11/29/2018 2:17 AM 05/04/2019 2:52 PM Full Code - Unverified 11/29/2018 1:32 AM 11/29/2018 2:17 AM Full Code 11/21/2016 2:22 PM 11/24/2016 5:57 PM Full Code - Unverified 11/21/2016 12:25 PM 11/21/2016 2: 22 PM Full Code 07/31/2016 1:46 AM 08/02/2016 4:11 PM Documents on File Type Date Recorded Patient Conference And Event Organiser Expl anation Advance Directives and Livin g Will 05/22/2019 6:47 AM Documents on File Type Date Recorded Patient Conference And Event Organiser Expl anation Advance Directives and Livin g Will 05/22/2019 6:47 AM Latest Code Status on File Code Status Date Activated Date Inactivated Comments Full Code 11/29/2018 2:17 AM 05/04/2019 2:52 PM Documents on File Type Date Recorded Patient Conference And Event Organiser Expl anation Advance Directives and Livin g Will 09/19/2019 8:24 PM Latest Code Status on File Code Status Date Activated Date Inactivated Comments Full Code 09/20/2019 3:34 AM Full Code 11/29/2018 2:17 AM 05/04/2019 2:52 PM Documents on File Type Date Recorded Patient Conference And Event Organiser Expl anation Advance Directives and Livin g Will 09/19/2019 8:24 PM Latest Code Status on File Code Status Date Activated Date Inactivated Comments Full Code 09/20/2019 3:34 AM Full Code 11/29/2018 2:17 AM 05/04/2019 2:52 PM Documents on File Type Date Recorded Patient Conference And Event Organiser Expl anation Advance Directives and Livin g Will 10/21/2019 1:30 PM Latest Code Status on File Code Status Date Activated Date Inactivated Comments Full Code 10/21/2019 6:53 PM Full Code 09/20/2019 3:34 AM 10/21/2019 12:43 PM Documents on File Type Date Recorded Patient Conference And Event Organiser Expl anation Advance Directives and Livin g Will 01/22/2020 3:57 PM Latest Code Status on File Code Status Date Activated Date Inactivated Comments Full Code 10/21/2019 6:53 PM 01/22/2020 3:20 PM Full Code 09/20/2019 3:34 AM 10/21/2019 12:43 PM Documents on File Type Date Recorded Patient Conference And Event Organiser Expl anation Advance Directives and Livin g Will 02/12/2020 1:53 PM Latest Code Status on File Code Status Date Activated Date Inactivated Comments Full Code 02/12/2020 7:42 PM 02/14/2020 2:16 PM Full Code 02/12/2020 4:34 PM 02/12/2020 7:42 PM Full Code 10/21/2019 6:53 PM 01/22/2020 3:20 PM Documents on File Type Date Recorded Patient Conference And Event Organiser Expl anation Advance Directives and Livin g Will 03/21/2020 2:59 PM Latest Code Status on File Code Status Date Activated Date Inactivated Comments Full Code 03/21/2020 7:52 PM 03/22/2020 8:04 PM Full Code 02/12/2020 7:42 PM 02/14/2020 2:16 PM Documents on File Type Date Recorded Patient Conference And Event Organiser Expl anation Advance Directives and Livin g Will 08/13/2020 11:33 AM Latest Code Status on File Code Status Date Activated Date Inactivated Comments Full Code - Unverified 08/13/2020 3:49 PM 08/13/2020 7 :44 PM Full Code 03/21/2020 7:52 PM 03/22/2020 8:04 PM Documents on File Type Date Recorded Patient Conference And Event Organiser Expl anation Advance Directives and Livin g Will 09/23/2020 11:33 AM Latest Code Status on File Code Status Date Activated Date Inactivated Comments Full Code - Unverified 09/24/2020 7:24 AM 09/25/2020 2:4 6 PM Full Code - Unverified 09/23/2020 7:02 PM 09/24/2020 7:2 4 AM Full Code - Unverified 08/13/2020 3:49 PM 08/13/2020 7 :44 PM Documents on File Type Date Recorded Patient Conference And Event Organiser Expl anation Advance Directives and Livin g Will 05/04/2019 4:30 PM Documents on File Type Date Recorded Patient Conference And Event Organiser Expl anation Advance Directives and Livin g Will 11/27/2020 11:33 AM Documents on File Type Date Recorded Patient Conference And Event Organiser Expl anation Advance Directives and Livin g Will 01/13/2021 1:41 PM Documents on File Type Date Recorded Patient Conference And Event Organiser Expl anation Advance Directives and Livin g Will 01/13/2021 1:41 PM Latest Code Status on File Code Status Date Activated Date Inactivated Comments Full Code - Unverified 09/24/2020 7:24 AM 09/25/2020 2:4 6 PM Full Code - Unverified 09/23/2020 7:02 PM 09/24/2020 7:2 4 AM Full Code - Unverified 08/13/2020 3:49 PM 08/13/2020 7 :44 PM Full Code 03/21/2020 7:52 PM 03/22/2020 8:04 PM Full Code 02/12/2020 7:42 PM 02/14/2020 2:16 PM Documents on File Type Date Recorded Patient Conference And Event Organiser Expl anation Advance Directives and Livin g Will 03/19/2021 7:15 PM Documents on File Type Date Recorded Patient Conference And Event Organiser Expl anation Advance Directives and Livin g Will 03/19/2021 7:15 PM Documents on File Type Date Recorded Patient Conference And Event Organiser Expl anation Advance Directives and Livin g Will 09/09/2021 12:56 PM Documents on File Type Date Recorded Patient Conference And Event Organiser Expl anation Advance Directives and Livin g Will 10/17/2021 6:11 PM Latest Code Status on File Code Status Date Activated Date Inactivated Comments Full Code 01/19/2022 9:58 PM 01/20/2022 2:08 PM Full Code 01/14/2022 9:59 PM 01/15/2022 2:14 PM Full Code - Unverified 09/24/2020 7:24 AM 09/25/2020 2:4 6 PM Latest Code Status on File Date Activated Date Inactivated Comments 07/15/2022 7:12 AM Full Code - Unverified Date Activated Date Inactivated Comments 07/15/2022 12:21 AM 07/15/2022 7:12 AM Full Code Date Activated Date Inactivated Comments 01/19/2022 9:58 PM 01/20/2022 2:08 PM Full Code Date Activated Date Inactivated Comments 01/14/2022 9:59 PM 01/15/2022 2:14 PM Full Code - Unverified Date Activated Date Inactivated Comments 09/24/2020 7:24 AM 09/25/2020 2:46 PM Latest Code Status on File Code Status Date Activated Date Inactivated Comments Full Code 07/15/2022 7:12 AM Code Status History Code Status Date Activated Date Inactivated Comments Full Code - Unverified 07/15/2022 12:21 AM 07/15/2022 7:12 AM Full Code 01/19/2022 9:58 PM 01/20/2022 2:08 PM Full Code 01/14/2022 9:59 PM 01/15/2022 2:14 PM Full Code - Unverified 09/24/2020 7:24 AM 09/25/2020 2:4 6 PM Latest Code Status on File Code Status Date Activated Date Inactivated Comments Full Code 07/15/2022 7:12 AM 07/22/2022 12:53 AM Code Status History Code Status Date Activated Date Inactivated Comments Full Code - Unverified 07/15/2022 12:21 AM 07/15/2022 7:12 AM Full Code 01/19/2022 9:58 PM 01/20/2022 2:08 PM Full Code 01/14/2022 9:59 PM 01/15/2022 2:14 PM Full Code - Unverified 09/24/2020 7:24 AM 09/25/2020 2:4 6 PM Latest Code Status on File Code Status Date Activated Date Inactivated Comments Full Code 07/15/2022 7:12 AM 07/22/2022 12:53 AM Date Activated Date Inactivated Comments 07/15/2022 7:12 AM 07/22/2022 12:53 AM Date Activated Date Inactivated Comments 07/15/2022 12:21 AM 07/15/2022 7:12 AM Date Activated Date Inactivated Comments 01/19/2022 9:58 PM 01/20/2022 2:08 PM Date Activated Date Inactivated Comments 01/14/2022 9:59 PM 01/15/2022 2:14 PM Date Activated Date Inactivated Comments 09/24/2020 7:24 AM 09/25/2020 2:46 PM Date Activated Date Inactivated Comments 07/15/2022 7:12 AM 07/22/2022 12:53 AM Date Activated Date Inactivated Comments 07/15/2022 12:21 AM 07/15/2022 7:12 AM Date Activated Date Inactivated Comments 01/19/2022 9:58 PM 01/20/2022 2:08 PM Date Activated Date Inactivated Comments 01/14/2022 9:59 PM 01/15/2022 2:14 PM Date Activated Date Inactivated Comments 09/24/2020 7:24 AM 09/25/2020 2:46 PM Date Activated Date Inactivated Comments 04/25/2024 5:11 AM 05/16/2024 2:14 PM Date Activated Date Inactivated Comments 04/21/2024 4:46 PM 04/25/2024 5:11 AM Date Activated Date Inactivated Comments 04/21/2024 4:01 PM 04/21/2024 4:46 PM Date Activated Date Inactivated Comments 07/15/2022 7:12 AM 07/22/2022 12:53 AM Date Activated Date Inactivated Comments 07/15/2022 12:21 AM 07/15/2022 7:12 AM Date Activated Date Inactivated Comments 04/25/2024 5:11 AM 05/16/2024 2:14 PM Date Activated Date Inactivated Comments 04/21/2024 4:46 PM 04/25/2024 5:11 AM Date Activated Date Inactivated Comments 04/21/2024 4:01 PM 04/21/2024 4:46 PM Date Activated Date Inactivated Comments 07/15/2022 7:12 AM 07/22/2022 12:53 AM Date Activated Date Inactivated Comments 07/15/2022 12:21 AM 07/15/2022 7:12 AM Advance Directive Response Recorded Date/ Time Do you have a Healthcare Power of Payloader Machine Operator? No April 06, 2025 1:17pm History of Present Illness * Khadijahadriannataly Ruma BarrosoYe, DIRECTOR OF GLOBAL SALES - 05/31/2017 5:42 PM EDT Formatting of this note may be different from the original. 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 Based on today s history, physical examination and review of ITB telemetry, I feel her severe spasticity is under adequate control. Unclear etiology of acute floppiness that occurred. Baclofen pump interrogated and found to be alarm free. Claudine's mother will keep a journal of all activities and call with any further episodes. Peg reports she has baclofen on hand for an emergent situation. Current ITB goals include: decrease cramps and spasms, spasticity related pains, loosen thelegs, loosen the arms, improve options for seating and positioning, improve transfers, improve personal hygiene Other associated diagnoses / active problems for this visit include: weakness, spasticity. Total Daily Dose: 645.4 mcg/day. Programming Adjustments today: none, refill only. CONTEMOPORARY HISTORY Claudine presents to clinic for ITB follow up with her mom Peg and caregiver Jannet. Peg reports afew more seizures recently, Yany Wright CNP recently adjusted seizure medication. Mom feels that spasticity is well controlled at current dose. OTHER RELEVANT HISTORY [facility] ROS - 06/01/17 1058 General Change in weight No Fever No Chills No Night Sweats No Cough No Shortness of Breath No Joint pain / swelling No Muscle pain / cramps No Chest pain No Palpitations No Nausea / Vomiting No Neurologic Double vision No Blurred / decreased vision No Difficulty swallowing No Difficulty with speech No Numbness / tingling No Painful skin sensations No Muscle weakness Yes Heat sensitivity No Motor fatigue No Incoordination/ poor balance Yes Difficulty walking Yes Recent Falls No L'hermitte No Difficulty with thinking and memory No Pathologic fatigue No Depression No Anxiety No Urinary urgency No Urinary frequency No Urinary retention / hesitancy No Recent Urinary Tract Infections No Bowel complaints No Sexual Dysfunction No Poor sleep No Headaches No Recent Seizures No She has a past medical history of Acute respiratory failure (HCC); Allergic rhinitis; Anoxic brain damage ([facility]); Aspiration, chronic pulmonary; Bowel and bladder incontinence; Cerebral palsy ([facility]); Chronic respiratory failure with hypoxia ([facility]); Constipation; GERD (gastroesophageal reflux disease);MRSA (methicillin resistant Staphylococcus aureus) (04/2016); Nonverbal; Postoperative retention ofurine; Restrictive lung disease due to kyphoscoliosis; and Seizures ([facility]). She has a past surgical history that includes Peg Tube Insertion; Baclofen pump implantation; Salivary gland surgery; Back surgery (1999); Cholecystectomy; Pain Pump Revision (N/A, 07/27/2016); and Laminectomy Decomp Thoracic Multi Level (N/A, 07/27/2016). She reports that she has never smoked. She has never used smokeless tobacco. She reports that she does not drink alcohol or use illicit drugs. Social History Social History Narrative She She was adopted. Family history is unknown by patient. Allergies Allergen Reactions Levaquin [Levofloxacin] Rash, flushing with RUE arm swelling. Lactose Intolerance [Lactase] Ragweed Unknown Augmentin [Amoxicillin-Pot Clavulanate] Rash She has a current medication list which includes the following prescription(s): acetaminophen, cholecalciferol (vitamin d3), diazepam, fluticasone, guaifenesin, ipratropium, lamotrigine, lamotrigine,levetiracetam, loratadine, medroxyprogesterone, multivitamin, omeprazole, polyethylene glycol, and p romethazine. PHYSICAL EXAMINATION Vital Signs: Blood pressure 101/72, pulse (!) 105, height 4' 5, weight 40.8 kg (90 lb). General Appearance: in no apparent distress. Eyes: Anicteric sclerae. Moist conjunctivae. No lid edema noted. HENT: Head atraumatic, normocephalic. Oropharynx clear. Moist mucous membranes. Neck/ Thyroid:trachea midline. Supple. No massess. No thyromegaly. Lungs: Normal respiratory effort. No intercostal retractions. No dyspnea during conversation. Abdomen: soft, non-distended. Extremities: no clubbing, cyanosis, pedal edema, ulcer nor wound noted. Skin: warm, dry, no rash, no ecchymoses, no petechiae noted Pysch: normal mood, behavior, speech, dress, and thought processes NEUROLOGICAL EXAMINATION Mental Status is awake, non-verbal, tracking examiner. Modified Estefani Score: EE EF Hip add KE KF DF PF Right 2 0 0 0 0 0 Left 2 0 0 0 0 0 Gait Mechanics: Non ambulatory ITB TELEMETRY and OTHER DATA I have independently reviewed the ITB pump system telemetry. ASSESSMENT Medically refractory, severe spasticity secondary to Spasticity Etiology: CP managed with intrathecal baclofen therapy. Based on today s history, physical examination and review of ITB telemetry, I feel her severe spasticity is under adequate control. Current ITB goals include: decrease cramps and spasms, loosen the arms, improve options for seatingand positioning, help prevent contractures and bed sores, improve success during PT and OT Other associated diagnoses / active problems for this visit include: weakness, spasticity, seizures INTRATHECAL BACLOFEN SYSTEM INFORMATION FOR Claudine Joseph Severe Spasticity due to: CP Implanted: [address] Roxy RENE date: Synchromed I IPump Size: 40 mL Willard Location: 11 oclock Catheter Tip Placement: PLAN REGARDING INTRATHECAL BACLOFEN THERAPY First Medication Brand: LIORESAL Concentration: 2000 mcg/mL Total Daily Dose: 645.4 mcg/day 1. Pump Programming: Simple Continuous 2. Pump Esto Refill: The injection site was prepped sterilely, landmarks were identified, and the pump was accessed with a coring needle. Approximately 4 (calculated 4.9) cc of clear, colorless fluid was removed from the reservoir. The reservoir was then refilled with 40 ml of 2000mcg/ml baclofen for intrathecal administration. No difficulties were noted, and the pressure was within acceptable limits. kit # [id number]: concentration 2000 mcg/ml, volume 40 ml was used. 3. Programming Adjustments today: none, refill only 4. ITB system Procedures today: pump computer interrogation, pump computer reprogramming and pump reservoir refill 5. Last reservoir refill date: 06/01/17 6. Pump Low Esto Alarm Date: 09/26/17 7. Claudine Joseph and/or her caregivers have verbal consents to all of the ITB system adjustments and procedures performed today PLAN REGARDING ADJUNCTIVE SPASTICITY THERAPIES 1. Noxious stimulation worsens spasticity. This included when the weather is cold outside, urinary tract infections and other infections, pressure sores, poor seating or sleeping ergonomics, constipation and urinary retention. she is encouraged to report any of these symptoms. 2. We recommend practicing good spasticity hygiene: A. Stretch upon waking, partway through the day, and before bed every day B. Stay adequately hydrated C. Treat constipation, urinary retention, bladder infections D. Check dependant areas of the body every day for redness / skin breakdown E. Exercise! Movement is camejo. Try yoga, magan chi, or water aerobics. D. Stop to stretch during long periods of sitting (long car ride, business meeting) F. Don't get too cool. Cold often worsens spasticity. PLAN REGARDING FOLLOW UP 1. We will schedule follow up a week before her alarm date, which is 09/26/17. 2. I strongly recommend that she keep an up-to-date emergency bottle of oral baclofen with her atall times to take for withdrawal symptoms. 3. I also recommend that she keep her [employer] identification card with our clinic contact information at all times. 4. Dr. Murphy and Dr. Ngo can be reached for emergencies and after hours by calling the [facility] at . PATIENT AND CARE PROVIDER EDUCATION You can learn more about spasticity and ITB therapy at the following website: [email or web address] If you have a smart phone then we recommend you download the free pump partner application as well. It is a resource for ITB education and tracking your personalized therapy. SYNCHROMED II ITB SYSTEM The intrathecal baclofen pump system is the way our treatment team gives baclofen directly into thespinal fluid. The system consists of a catheter (a small, flexible tube) and a pump. The pump -- a round metal disc, about one inch thick and three inches in diameter -- is surgically placed under the skin of the abdomen near the waistline. The pump stores and releases prescribed amounts of medicine through the cathete directly to the spinal fluid. With a programmable pump, a tiny motor moves themedication from the pump reservoir through the catheter. Using an external it programmer analyst, your treatment team can make adjustments in the dose, rate, and timing of the medication. Continuously delivers baclofen in small doses directly to the spinal fluid, increasing the therapeutic benefits and causing fewer and less severe side effects than the oral medication. Patients with a pump must return to their doctor's office for pump refills and medication adjustments, typically every 1-3 months. ITB SYSTEM MAINTENANCE AND REPAIR The catheter may kink, break or dislodge in up to 10% of cases and would require a surgery to revise it. The Synchromed II pump requires replacement for end of battery life within 7 years. This will require a surgery. The catheter is not required to be replaced, just the pump. INTRATHECAL BACLOFEN WITHDRAWAL Signs and symptoms of baclofen withdrawal often include diffuse body itching, increased stiffness and fever. I have reminded her to take 20mg of oral baclofen and contact our office if she has these symptoms. she may need to be seen in the emergency department. The baclofen withdrawal syndrome can progress to include confusion, sedation and even coma. In severe cases baclofen withdrawal can lead to kidney damage, seizures and possibly . A lumbar puncture with an injection of 50mcg intrathecal baclofen in the emergency department is often the best treatment to address severe balcofen withdrawal symptoms. INTRATHECAL BACLOFEN OVERDOSE Signs and symptoms of baclofen overdose often include sedation and confusion and most commonly occur recently following an ITB refill/program adjustment. I recommend Claudinebirgit Joseph contact our office prompts if these symptoms occur. The baclofen overdose syndrome can progress to include coma, seizures, respiratory and cardiac depression and possibly . I have reminded her to contact our office and go to the emergency room if she experiences these symptoms. A high volume lumbar puncture (removing 40cc of both CSF and intrathecal baclofen) in the emergency department is often the best treatment for severe baclofen overdose symptoms. ITB SYSTEM INFECTION Infection of the pump system can lead to meningitis (severe brain infection) and can be possibly fatal. Signs and symptoms of pump infection can include redness, swelling, or pain around the pump or surgical scar on the back. Fever and a stiff neck are also common. I recommend that Claudine Joseph go to the Emergency Department if she has any of signs/symptoms of pump infection. MRI SCANNING Synchromed II ITB pumps are MRI compatible including 3T strength scanners. The pump stops pumping temporarily when the patient is moved near the MRI machine. The pump automatically restarts once the patient moves away from the MRI machine. We follow a clinic best practice of interrogating the pump following MRI scans to ensure the ITB pump has restarted. This can often be arranged to be done by [employer] Conference And Event Organiser if scheduled during business hours. We recommend AGAINST any MRI scans scheduled outside of business hours. EDUCATION: HOT TUBs, STEAM ROOMS, SAUNAS AND TANNING BED We recommend patients avoid these, especially if over 102 degrees. Heating up your body causes the ITB pump to potential increase its flow rate, which could cause overdose/. EDUCATION: SCUBA DIVING We recommend that an ITB patient avoid depths below 33 feet (10 meters). Diving lower than this could permanently damage the pump. Also as you descend and the pressure around your body increases, pump flow can decrease. This could lead to baclofen withdrawal/. EDUCATION REGARDING DAYLIGHT SAVINGS TIME The clock inside the pump does not adjust for daylight savings time changes (spring forward and fall backwards). If you are on flex dosing or bolus dosing programming then your dosing will becomeshifted an hour, which may cause problems for the patient. The pump clock only corrects for daylight savings time after being interrogated by a it programmer analyst. The flex/bolus dosing patient should schedule a visit after a time change to reset their pump clocks. I spent 30 minutes face to face with the patient today. Over half the time was spent counseling regarding her spasticity as well as it's underlying medical condition, as well as her coordinating care.Thank you very much for allowing me to participate in this patient's care and please do not hesitate to contact me with questions or concerns. Sincerely, Ruma Godwin MS, BSN, ACNP-BC, CNRN Acute Care Nurse Practitioner [facility] [address], [address] [place] [id number] [email or web address] [phone] in this encounter* Ruma Godwin, DIRECTOR OF GLOBAL SALES - 11/20/2018 8:51 PM EDT [facility] Spasticity Clinic: Intrathecal Baclofen Therapy Progress Note 11/21/2018 CHIEF COMPLAINT Spasticity follow up from 08/03/2018 IMPRESSIONS AT LAST VISIT / INTERM HISTORY Medically refractory, severe spasticity secondary to Spasticity Etiology: CP managed with intrathecal baclofen therapy. Based on today s history, physical examination and review of ITB telemetry, I feel her severe spasticity is under adequate control. Current ITB goals include: decrease cramps and spasms, spasticity related pains, loosen thelegs, loosen the arms, improve options for seating and positioning, improve personal hygiene, improve caregiver ease of care Other associated diagnoses / active problems for this visit include: weakness, spasticity Total Daily Dose: 649.8 mcg/day. Programming Adjustments today: None; refill only CONTEMOPORARY HISTORY Claudine presents to clinic with her mom Peg and caregiver for ITB pump refill. Peg reports she developed a pressure wound on right buttock, less that 1 cm open but tunnels 4 cm, wound vac applied 1 week ago. She was treated with IV antibiotics and still has PICC line in [facility]. OTHER RELEVANT HISTORY [facility] - 11/21/18 1018 General Change in weight No Fever No Chills No Night Sweats No Cough No Shortness of Breath No Joint pain / swelling No Muscle pain / cramps No Chest pain No Palpitations No Nausea / Vomiting No Neurologic Double vision No Blurred / decreased vision No Difficulty swallowing Yes Difficulty with speech Yes Numbness / tingling No Painful skin sensations No Muscle weakness Yes Heat sensitivity No Motor fatigue Yes Incoordination/ poor balance Yes Difficulty walking Yes Recent Falls No L'hermitte No Difficulty with thinking and memory No Pathologic fatigue No Depression No Anxiety No Urinary urgency No Urinary frequency No Urinary retention / hesitancy No Recent Urinary Tract Infections No Bowel complaints No Sexual Dysfunction No Poor sleep No Headaches No Recent Seizures Yes She has a past medical history of Acute respiratory failure ([facility]), Allergic rhinitis, Anoxic brain damage ([facility]), Aspiration, chronic pulmonary, Bowel and bladder incontinence, Cerebral palsy ([facility]), Chronic respiratory failure with hypoxia ([facility]), Constipation, GERD (gastroesophageal reflux disease),MRSA (methicillin resistant Staphylococcus aureus) (04/2016), Nonverbal, Postoperative retention ofurine, Restrictive lung disease due to kyphoscoliosis, and Seizures ([facility]). She has a past surgical history that includes Peg Tube Insertion; Baclofen pump implantation; Salivary gland surgery; Back surgery (1999); Cholecystectomy; Pain Pump Revision (N/A, 07/27/2016); and Laminectomy Decomp Thoracic Multi Level (N/A, 07/27/2016). She reports that she has never smoked. She has never used smokeless tobacco. She reports that she does not drink alcohol or use drugs. Social History Social History Narrative Not on file She She was adopted. Family history is unknown by patient. Allergies Allergen Reactions Levaquin [Levofloxacin] Rash, flushing with RUE arm swelling. Lactose Intolerance [Lactase] Penicillins Other (See Comments) Blisters Ragweed Unknown Augmentin [Amoxicillin-Pot Clavulanate] Rash She has a current medication list which includes the following prescription(s): acetaminophen, baclofen, baclofen, cholecalciferol (vitamin d3), diazepam, fluticasone, guaifenesin, ipratropium, lamotrigine, lamotrigine, levetiracetam, loratadine, medroxyprogesterone, metoprolol succinate, multivitamin, omeprazole, polyethylene glycol, and promethazine. PHYSICAL EXAMINATION Vital Signs: Blood pressure 96/66, pulse 99, height 4' 5, weight 40.8 kg (90 lb). General Appearance: no apparent distress Eyes: Anicteric sclerae. Moist conjunctivae. No lid edema noted. HENT: Head atraumatic, normocephalic. Oropharynx clear. Moist mucous membranes. Neck/ Thyroid:trachea midline. Supple. No massess. No thyromegaly. Lungs: Normal respiratory effort. No intercostal retractions. No dyspnea during conversation. Abdomen: soft, non-distended Extremities: no clubbing, cyanosis, pedal edema, ulcer nor wound noted. Skin: warm, dry, no rash, no ecchymoses, no petechiae noted, has wound vac on right buttock wound Pysch: Non verbal NEUROLOGICAL EXAMINATION Mental Status is awake, non-verbal, tracking examiner. Modified Estefani Score: EE EF Hip add KE KF DF PF Right 2 1 0 0 Left 2 0 0 0 Wheelchair bound ITB TELEMETRY and OTHER DATA I have independently reviewed the ITB pump system telemetry. ASSESSMENT Medically refractory, severe spasticity secondary to Spasticity Etiology: CP managed with intrathecal baclofen therapy. Based on today s history, physical examination and review of ITB telemetry, I feel her severe spasticity is under adequate control. Current ITB goals include: decrease cramps and spasms, spasticity related pains, loosen thelegs, loosen the arms, improve options for seating and positioning, help prevent contractures and bed sores, improve caregiver ease of care Other associated diagnoses / active problems for this visit include: weakness, spasticity, requireswheelchair / scooter for mobility, wound right buttock INTRATHECAL BACLOFEN SYSTEM INFORMATION FOR Claudine Joseph Severe Spasticity due to: CP Implanted: [address] Roxy RENE date: 54 (March 2023) Synchromed I IPump Size: 40 mL Willard Location: 11 oclock Catheter Tip Placement: PLAN REGARDING INTRATHECAL BACLOFEN THERAPY First Medication Brand: LIORESAL Concentration: 2000 mcg/mL Total Daily Dose: 649.8 mcg/day 1. Pump Programming: Simple Continuous 2. Pump Esto Refill: The injection site was prepped sterilely, landmarks were identified, and the pump was accessed with a coring needle. Approximately 5 (4.7 calculated) cc of clear, colorless fluid was removed from the reservoir. The reservoir was then refilled with 40 ml of 2000mcg/ml baclofen for intrathecal administration. No difficulties were noted, and the pressure was within acceptable limits. kit # [id number]: concentration 2000 mcg/ml, volume 40 ml was used. 3. Programming Adjustments today: None; refill only 4. ITB system Procedures today: pump computer interrogation, pump computer reprogramming and pump reservoir refill 5. Last reservoir refill date: 11/21/18 6. Pump Low Esto Alarm Date: 03/17/19 7. Claudine Joseph and/or her caregivers have verbal consents to all of the ITB system adjustments and procedures performed today PLAN REGARDING ADJUNCTIVE SPASTICITY THERAPIES 1. Noxious stimulation worsens spasticity. This included when the weather is cold outside, urinary tract infections and other infections, pressure sores, poor seating or sleeping ergonomics, constipation and urinary retention. she is encouraged to report any of these symptoms. 2. We recommend practicing good spasticity hygiene: A. Stretch upon waking, partway through the day, and before bed every day B. Stay adequately hydrated C. Treat constipation, urinary retention, bladder infections D. Check dependant areas of the body every day for redness / skin breakdown E. Exercise! Movement is camejo. Try yoga, magan chi, or water aerobics. D. Stop to stretch during long periods of sitting (long car ride, business meeting) F. Don't get too cool. Cold often worsens spasticity. PLAN REGARDING FOLLOW UP 1. We will schedule follow up a week before her alarm date, which is 03/17/19. 2. I strongly recommend that she keep an up-to-date emergency bottle of oral baclofen with her atall times to take for withdrawal symptoms. 3. I also recommend that she keep her [employer] identification card with our clinic contact information at all times. 4. Dr. Murphy and Dr. Ngo can be reached for emergencies and after hours by calling the [facility] at . PATIENT AND CARE PROVIDER EDUCATION You can learn more about spasticity and ITB therapy at the following website: [email or web address].[email or web address] If you have a smart phone then we recommend you download the free pump partner application as well. It is a resource for ITB education and tracking your personalized therapy. SYNCHROMED II ITB SYSTEM The intrathecal baclofen pump system is the way our treatment team gives baclofen directly into thespinal fluid. The system consists of a catheter (a small, flexible tube) and a pump. The pump -- a round metal disc, about one inch thick and three inches in diameter -- is surgically placed under the skin of the abdomen near the waistline. The pump stores and releases prescribed amounts of medicine through the cathete directly to the spinal fluid. With a programmable pump, a tiny motor moves themedication from the pump reservoir through the catheter. Using an external it programmer analyst, your treatment team can make adjustments in the dose, rate, and timing of the medication. Continuously delivers baclofen in small doses directly to the spinal fluid, increasing the therapeutic benefits and causing fewer and less severe side effects than the oral medication. Patients with a pump must return to their doctor's office for pump refills and medication adjustments, typically every 1-3 months. ITB SYSTEM MAINTENANCE AND REPAIR The catheter may kink, break or dislodge in up to 10% of cases and would require a surgery to revise it. The Synchromed II pump requires replacement for end of battery life within 7 years. This will require a surgery. The catheter is not required to be replaced, just the pump. INTRATHECAL BACLOFEN WITHDRAWAL Signs and symptoms of baclofen withdrawal often include diffuse body itching, increased stiffness and fever. I have reminded her to take 20mg of oral baclofen and contact our office if she has these symptoms. she may need to be seen in the emergency department. The baclofen withdrawal syndrome can progress to include confusion, sedation and even coma. In severe cases baclofen withdrawal can lead to kidney damage, seizures and possibly . A lumbar puncture with an injection of 50mcg intrathecal baclofen in the emergency department is often the best treatment to address severe balcofen withdrawal symptoms. INTRATHECAL BACLOFEN OVERDOSE Signs and symptoms of baclofen overdose often include sedation and confusion and most commonly occur recently following an ITB refill/program adjustment. I recommend Claudine Joseph contact our office prompts if these symptoms occur. The baclofen overdose syndrome can progress to include coma, seizures, respiratory and cardiac depression and possibly . I have reminded her to contact our office and go to the emergency room if she experiences these symptoms. A high volume lumbar puncture (removing 40cc of both CSF and intrathecal baclofen) in the emergency department is often the best treatment for severe baclofen overdose symptoms. ITB SYSTEM INFECTION Infection of the pump system can lead to meningitis (severe brain infection) and can be possibly fatal. Signs and symptoms of pump infection can include redness, swelling, or pain around the pump or surgical scar on the back. Fever and a stiff neck are also common. I recommend that Claudine Joseph go to the Emergency Department if she has any of signs/symptoms of pump infection. MRI SCANNING Synchromed II ITB pumps are MRI compatible including 3T strength scanners. The pump stops pumping temporarily when the patient is moved near the MRI machine. The pump automatically restarts once the patient moves away from the MRI machine. We follow a clinic best practice of interrogating the pump following MRI scans to ensure the ITB pump has restarted. This can often be arranged to be done by a[employer] Conference And Event Organiser if scheduled during business hours. We recommend AGAINST any MRI scans scheduled outside of business hours. EDUCATION: HOT TUBs, STEAM ROOMS, SAUNAS AND TANNING BED We recommend patients avoid these, especially if over 102 degrees. Heating up your body causes the ITB pump to potential increase its flow rate, which could cause overdose/. EDUCATION: SCUBA DIVING We recommend that an ITB patient avoid depths below 33 feet (10 meters). Diving lower than this could permanently damage the pump. Also as you descend and the pressure around your body increases, pump flow can decrease. This could lead to baclofen withdrawal/. EDUCATION REGARDING DAYLIGHT SAVINGS TIME The clock inside the pump does not adjust for daylight savings time changes (spring forward and fall backwards). If you are on flex dosing or bolus dosing programming then your dosing will becomeshifted an hour, which may cause problems for the patient. The pump clock only corrects for daylight savings time after being interrogated by a it programmer analyst. The flex/bolus dosing patient should schedule a visit after a time change to reset their pump clocks. I spent 30 minutes face to face with the patient today. Over half the time was spent counseling regarding her spasticity as well as it's underlying medical condition, as well as her coordinating care.Thank you very much for allowing me to participate in this patient's care and please do not hesitate to contact me with questions or concerns. Sincerely, Ruma Godwin MS, BSN, ACNP-BC, CNRN Acute Care Nurse Practitioner [facility] [place] [address] [place], [address] [place] [address] [email or web address] [phone] in this encounter* Onelia Acevedo DO - 12/05/2018 5:45 AM EDT DAILY PROGRESS NOTE - FAMILY MEDICINE Patient Name: Claudine Joseph MR #: [id number] Assessment/Plan: Perpetual Assessment: Claudine Joseph is a 28 y.o. female on hospital day 6 with a history of anoxic brain injury, cerebral palsy s/p baclofen pump, seizure, restrictive lung disease with chronic respiratory failure on 4L NC, aspiration, PEG tube, incontinence, chronic sacral ulcer, GERD, hypernatremia who presented to [facility] from home on 11/28/2018 with complaints of fever, increased respiratory requirements. She was found to be septic in the ED with source unclear if related to known UTI or sacralwound/osteomyelitis. Started on Vancomycin and Cefepime. Urine culture positive for Klebsiella susceptible to Cefepime, blood cultures NGTD x48h. Patient received 3 days Vancomycin and Cefepime, disco ntinued 12/01. Multiple specialists consulted for assistance. Debridement of skin, subQ tissue, muscle, and bone of right ischium and ischial bone biopsy and culture on 12/02 by Ortho. 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 CT suggestive of right ischial osteomyelitis. ESR mildly elevated to 38, CRP normal. Blood cultures x2 NG after 72 hours. S/p 3 days Vanco and Cefepime. Antibiotics discontinued 12/01 per ID recs to increase wound culture yield. - Wound care consulted. Appreciate assistance. Recommending dressing changes q3d. Packed with Aquacel, clear aid barrier ointment. Offloading. - Morphine 5 mg tube q5h PRN for pain - ID and orthopedics consulted. Will likely need long-term antibiotics. Appreciate assistance. - S/p debridement of skin, subQ tissue, muscle, and bone of right ischium and ischial bone biopsy and culture 12/02 by Ortho. NGTD x 48H. Awaiting ID input. Uncomplicated Urinary Tract Infection- adequately treated Patient incontinent, unable to provide history of urinary symptoms. Requires intermittent straight cath but otherwise wears diaper at home. UA with small LE, pyuria, and many bacteria. Possibility ofcolonization. - Urine culture positive for >100,000 CFU/mL Klebsiella pneumonia susceptible to Cefepime. Received 3day course of Cefepime, which is sufficient for uncomplicated Klebsiella UTI per ID. Appreciateassistance. Nutritional Deficiency Patient likely dehydrated. Tube feeds through PEG. Pureed food every evening, Ensure, and TF/fluidsovernight. - Increase free water flushes, 200 mL q8h. D5 infusion discontinued. - Captain Waiter/Waitress consulted. Appreciate assistance with nutrition. Tube feeds initiated 11/30. Chronic hypoxic respiratory failure with hypercapnia Baseline severe restrictive lung disease 2/2 scoliosis. Home requirement 4L. Increased requirement on presentation. - Patient back to below home O2 requirement of 4L. On 2L NC this AM with O2 sat 98%. Spastic Cerebral Palsy Chronic. Complicated by seizure history. Managed with Baclofen pump (recently refilled 11/20), anti-epileptics, and PEG tube. Follows with Dr. Murphy. Requires straight cath intermittently. - Continue home anti-epileptics (lamictal 250 mg BID and keppra 1000 mg BID) and intrathecal baclofen. Valium 6 mg PRN Epilepsy Prior anoxic brain injury at . - Continue home anti-epileptics (lamictal 250 mg BID and keppra 1000 mg BID) and intrathecal baclofen. Valium 6 mg PRN - Seizure precautions GERD Per history. - Continue PPI Dispo: home DVT Prophylaxis: Lovenox Code Status: FULL CODE Subjective/Objective: S: Patient doing well this morning and does not appear to be in any pain. No acute events over night. Mom hopeful to leave today. Claudine became tearful when mom kept mentioning going home. Claudine had debridement of skin, subcutaneous tissue, muscle, and bone of right ischium in additionto right ischial bone biopsy. Per nursing report, no acute events overnight. Tube feeds and free water running without difficulty. Review of Systems: Review of Systems Unable to perform ROS: Patient nonverbal Physical Examination: BP 110/70 (BP Location: Right arm, Patient Position: Lying) Pulse (!) 131 Temp 100 F (37.8 C) (Oral) Resp (!) 22 Ht 4' 6 Wt 40.8 kg (89 lb 15.2 oz) SpO2 98% BMI 21.69 kg/m Physical Exam Constitutional: No distress. Appears not to be in any pain Rotated to the left Eyes: Right eye exhibits no discharge. Left eye exhibits no discharge. Cardiovascular: Normal rate, regular rhythm, normal heart sounds and intact distal pulses. No murmur heard. Pulmonary/Chest: Breath sounds normal. No respiratory distress. She has no wheezes. On 2L NC, O2 sat 98%, poor effort due to poor patient participation, no focal findings Abdominal: Soft. She exhibits distension. G-tube in place, CDI, well healed scar noted Baclofen pump palpated along right flank Genitourinary: Genitourinary Comments: Sage in place draining clear, light yellow urine Musculoskeletal: She exhibits deformity (spastic extremities). She exhibits no edema. Neurological: Nonverbal Skin: Skin is warm and dry. She is not diaphoretic. Vitals reviewed. Lines: Sage and LUE PIV, PEG Intake/Output last 3 shifts: I/O last 3 completed shifts: In: 3669 [NG/GT:1165] Out: 2550 [Urine:550; Emesis/NG output:2000] Results/Medications Reviewed 12/05/18 5:45 AM: Reviewed medications, vitals, radiology, consult notes Will discuss with Dr. Cowan, attending. Onelia Gutierrez D.O. PGY1 [facility] P: [phone] Assessment Detail: Based on current clinical information, expected date of discharge is TBD. Associated attestation - Katlin Cowan MD - 12/05/2018 11:49 AM EDT Patient seen and examined independently of Dr Gutierrez. Reviewed above history and physical exam with resident team. Agree with above assessment and plan. Assessment and Plan: 1. Sacral wound with osteomyelitis - POD#3 debridement of skin, muscle, and bone along with bone biopsy. Initially on vanco and cefepime, discontinued to increase wound culture yield during procedureand concern for chronic osteo. Plan to hold on abx for now. Bone biopsy/culture negative x72 hours.Sand bed for offloading. 2. Severe dehydration and hypernatremia - resolved s/p significant fluid hydration on admission. Continue to monitor BMP daily. Continues to improve to 137 this morning. 3. Chronic nutritional deficiency - PEG tube feeds. Also on pureed diet and ensure. Appreciate fancy stitcher recommendations - education of foster mother prior to discharge. 4. Restrictive lung disease -secondary to scoliosis. Patient currently on home oxygen requirement of 4 L. 5. Urinary tract infection - s/p 3 days of cefipime. Urine culture with klebsiella. 6. Dispo: Possible discharge home today if okay with ID. * Elodia Zafar DO - 12/04/2018 6:59 AM EDT DAILY PROGRESS NOTE - FAMILY MEDICINE Patient Name: Claudine Joseph MR #: [id number] Assessment/Plan: Perpetual Assessment: Claudine Joseph is a 28 y.o. female on hospital day 5 with a history of anoxic brain injury, cerebral palsy s/p baclofen pump, seizure, restrictive lung disease with chronic respiratory failure on 4L NC, aspiration, PEG tube, incontinence, chronic sacral ulcer, GERD, hypernatremia who presented to [facility] from home on 11/28/2018 with complaints of fever, increased respiratory requirements. She was found to be septic in the ED with source unclear if related to known UTI or sacralwound/osteomyelitis. Started on Vancomycin and Cefepime. Urine culture positive for Klebsiella susceptible to Cefepime, blood cultures NGTD x48h. Patient received 3 days Vancomycin and Cefepime, disco ntinued 12/01. Multiple specialists consulted for assistance. Debridement of skin, subQ tissue, muscle, and bone of right ischium and ischial bone biopsy and culture on 12/02 by Ortho. 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 CT suggestive of right ischial osteomyelitis. ESR mildly elevated to 38, CRP normal. Blood cultures x2 NG after 48 hours. S/p 3 days Vanco and Cefepime. Antibiotics discontinued 12/01 per ID recs to increase wound culture yield. - Wound care consulted. Appreciate assistance. Recommending dressing changes q3d. Packed with Aquacel, clear aid barrier ointment. Offloading. - Morphine 5 mg tube q5h PRN for pain - ID and orthopedics consulted. Will likely need long-term antibiotics. Appreciate assistance. - S/p debridement of skin, subQ tissue, muscle, and bone of right ischium and ischial bone biopsy and culture 12/02 by Ortho. NGTD x 48H. Awaiting ID input. Hypernatremia Chronic. Elevated to 157 on admission consistent with baseline. Etiology likely due to dehydration,fluid loss from chronic sacral wound, and inadequate free water with tube feeds. Down-trending appropriately, Na 144 on 12/01/18 AM. Now stable since re-initiation of tube feeds - Continuous free water per tube at 20 mL/hr per nutrition.Tube feeds re- initiated on 12/02/18 after OR. Appreciate nutrition assistance. - Daily BMP Uncomplicated Urinary Tract Infection- adequately treated Patient incontinent, unable to provide history of urinary symptoms. Requires intermittent straight cath but otherwise wears diaper at home. UA with small LE, pyuria, and many bacteria. Possibility ofcolonization. - Urine culture positive for >100,000 CFU/mL Klebsiella pneumonia susceptible to Cefepime. Received 3day course of Cefepime, which is sufficient for uncomplicated Klebsiella UTI per ID. Appreciateassistance. Nutritional Deficiency Patient likely dehydrated. Tube feeds through PEG. Pureed food every evening, Ensure, and TF/fluidsovernight. - Increase free water flushes, 200 mL q8h. D5 infusion discontinued. - Captain Waiter/Waitress consulted. Appreciate assistance with nutrition. Tube feeds initiated 11/30. Chronic hypoxic respiratory failure with hypercapnia Baseline severe restrictive lung disease 2/2 scoliosis. Home requirement 4L. Increased requirement on presentation. - Patient back to below home O2 requirement of 4L. On 3L NC this AM with O2 sat 96%. Spastic Cerebral Palsy Chronic. Complicated by seizure history. Managed with Baclofen pump (recently refilled 11/20), anti-epileptics, and PEG tube. Follows with Dr. Murphy. Requires straight cath intermittently. - Continue home anti-epileptics (lamictal 250 mg BID and keppra 1000 mg BID) and intrathecal baclofen. Valium 6 mg PRN Epilepsy Prior anoxic brain injury at . - Continue home anti-epileptics (lamictal 250 mg BID and keppra 1000 mg BID) and intrathecal baclofen. Valium 6 mg PRN - Seizure precautions GERD Per history. - Continue PPI Dispo: home DVT Prophylaxis: Lovenox Code Status: FULL CODE Subjective/Objective: S: Patient asleep upon entering room but awakens to name. When asked if in pain, no blinking. Appears to be comfortable. Claudine had debridement of skin, subcutaneous tissue, muscle, and bone of right ischium in additionto right ischial bone biopsy. Per nursing report, no acute events overnight. Tube feeds and free water running without difficulty. Review of Systems: Review of Systems Unable to perform ROS: Patient nonverbal Physical Examination: BP 112/73 (BP Location: Right arm, Patient Position: Lying) Pulse (!) 105 Temp 98.3 F (36.8 C) (Axillary) Resp 18 Ht 4' 6 Wt 40.8 kg (89 lb 15.2 oz) SpO2 92% BMI 21.69 kg/m Physical Exam Constitutional: No distress. Asleep, opens eyes to name, appears not to be in any pain Rotated to the left Eyes: Right eye exhibits no discharge. Left eye exhibits no discharge. Cardiovascular: Normal rate, regular rhythm, normal heart sounds and intact distal pulses. No murmur heard. Pulmonary/Chest: Breath sounds normal. No respiratory distress. She has no wheezes. On 2L NC, O2 sat 92%, poor effort due to poor patient participation Abdominal: Soft. She exhibits distension. G-tube in place, CDI, well healed scar noted Baclofen pump palpated along right flank Genitourinary: Genitourinary Comments: Sage in place draining clear, light yellow urine Musculoskeletal: She exhibits deformity (spastic extremities). She exhibits no edema. Neurological: Nonverbal, awakens to name Skin: Skin is warm and dry. She is not diaphoretic. Vitals reviewed. Lines: Sage and LUE PIV, PEG Intake/Output last 3 shifts: I/O last 3 completed shifts: In: 1004 [NG/GT:80] Out: 3722 [Urine:3700; Blood:22] Results/Medications Reviewed 12/04/18 6:59 AM: Reviewed medications, vitals, radiology, consult notes Will discuss with Dr. Cowan, attending. Elodia Zafar D.O. PGY2 [facility] P: [phone] Assessment Detail: Based on current clinical information, expected date of discharge is TBD. Associated attestation - Katlin Cowan MD - 12/04/2018 9:14 PM EDT Reviewed above history and physical exam with resident team. Agree with above assessment and plan. Assessment and Plan: 1. Sacral wound with osteomyelitis - POD#1 debridement of skin, muscle, and bone along with bone biopsy. Initially on vanco and cefepime, discontinued to increase wound culture yield during procedureand concern for chronic osteo. Plan to hold on abx for now. Await bone biopsy/culture. Sand bed foroffloading. 2. Severe dehydration and hypernatremia - resolved s/p significant fluid hydration on admission. Continue to monitor BMP daily. Continues to improve to 142 this morning. 3. Chronic nutritional deficiency - PEG tube feeds. Also on pureed diet and ensure. Appreciate fancy stitcher recommendations. 4. Restrictive lung disease -secondary to scoliosis. Patient currently on home oxygen requirement of 4 L. 5. Urinary tract infection - s/p 3 days of cefipime. Urine culture with klebsiella. 6. Dispo: Pending * Melisa Zabala RN - 12/03/2018 12:31 PM EDT Anesthesia Progress Note 1 Day Post-Op Procedure(s): INCISION AND DRAINAGE WITH BONE BIOPSY OF RIGHT ISCHIUM Patient participation: patient cannot participate (baseline mental status) Cardiovascular status: hemodynamically stable Comment: Unable to assess patient post anesthesia related to baseline mental status. VSS Temp: [36.7 C-37.2 C] 36.7 C Heart Rate: [82-98] 98 Resp: [12-20] 20 BP: (90-114)/(55-70) 114/70 * Gase Onelia Colon DO - 12/03/2018 5:39 AM EDT DAILY PROGRESS NOTE - [facility] MEDICINE Patient Name: Claudine Joseph MR #: [id number] Assessment/Plan: Perpetual Assessment: Claudine Joseph is a 28 y.o. female on hospital day 4 with a history of anoxic brain injury, cerebral palsy s/p baclofen pump, seizure, restrictive lung disease with chronic respiratory failure on 4L NC, aspiration, PEG tube, incontinence, chronic sacral ulcer, GERD, hypernatremia who presented to [facility] from home on 11/28/2018 with complaints of fever, increased respiratory requirements. She was found to be septic in the ED with source unclear if related to known UTI or sacralwound/osteomyelitis. Started on Vancomycin and Cefepime. Urine culture positive for Klebsiella susceptible to Cefepime, blood cultures NGTD x48h. Patient received 3 days Vancomycin and Cefepime, disco ntinued 12/01. Multiple specialists consulted for assistance. Debridement of skin, subQ tissue, muscle, and bone of right ischium and ischial bone biopsy and culture on 12/02 by Ortho. 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 CT suggestive of right ischial osteomyelitis. ESR mildly elevated to 38, CRP normal. Blood cultures x2 NG after 48 hours. S/p 3 days Vanco and Cefepime. Antibiotics discontinued 12/01 per ID recs to increase wound culture yield. - Wound care consulted. Appreciate assistance. Recommending dressing changes q3d. Packed with Aquacel, clear aid barrier ointment. Offloading. - Morphine 5 mg tube q5h PRN for pain - ID and orthopedics consulted. Will likely need long-term antibiotics. Appreciate assistance. - S/p debridement of skin, subQ tissue, muscle, and bone of right ischium and ischial bone biopsy and culture 12/02 by Ortho. Follow up cultures. Hypernatremia Chronic. Elevated to 157 on admission consistent with baseline. Etiology likely due to dehydration,fluid loss from chronic sacral wound, and inadequate free water with tube feeds. Down-trending appropriately, Na 144 on 12/01/18 AM. Corrected however after NPO increased to 153, now 146 after re-initiating tube feeds and free water. - Continuous free water per tube at 20 mL/hr per nutrition.Tube feeds re- initiated on 12/02/18 after OR. Appreciate nutrition assistance. - Daily BMP Uncomplicated Urinary Tract Infection- adequately treated Patient incontinent, unable to provide history of urinary symptoms. Requires intermittent straight cath but otherwise wears diaper at home. UA with small LE, pyuria, and many bacteria. Possibility ofcolonization. - Urine culture positive for >100,000 CFU/mL Klebsiella pneumonia susceptible to Cefepime. Received 3day course of Cefepime, which is sufficient for uncomplicated Klebsiella UTI per ID. Appreciateassistance. Nutritional Deficiency Patient likely dehydrated. Tube feeds through PEG. Pureed food every evening, Ensure, and TF/fluidsovernight. - Increase free water flushes, 200 mL q8h. D5 infusion discontinued. - Captain Waiter/Waitress consulted. Appreciate assistance with nutrition. Tube feeds initiated 11/30. Chronic hypoxic respiratory failure with hypercapnia Baseline severe restrictive lung disease 2/2 scoliosis. Home requirement 4L. Increased requirement on presentation. - Patient back to below home O2 requirement of 4L. On 3L NC this AM with O2 sat 96%. Spastic Cerebral Palsy Chronic. Complicated by seizure history. Managed with Baclofen pump (recently refilled 11/20), anti-epileptics, and PEG tube. Follows with Dr. Murphy. Requires straight cath intermittently. - Continue home anti-epileptics (lamictal 250 mg BID and keppra 1000 mg BID) and intrathecal baclofen. Valium 6 mg PRN Epilepsy Prior anoxic brain injury at . - Continue home anti-epileptics (lamictal 250 mg BID and keppra 1000 mg BID) and intrathecal baclofen. Valium 6 mg PRN - Seizure precautions GERD Per history. - Continue PPI Dispo: home DVT Prophylaxis: Lovenox Code Status: FULL CODE Subjective/Objective: S: Patient asleep upon entering room but awakens to name. When asked if in pain, no blinking. Appears to be comfortable. Claudine had debridement of skin, subcutaneous tissue, muscle, and bone of right ischium in additionto right ischial bone biopsy. Per nursing report, no acute events overnight. Tube feeds and free water restarted without difficulty. Received Morphine at 0630 this AM. Review of Systems: Review of Systems Unable to perform ROS: Patient nonverbal Physical Examination: BP 114/70 (BP Location: Right arm, Patient Position: Lying) Pulse 98 Temp 98 F (36.7 C) (Oral) Resp (!) 20 Ht 4' 6 Wt 40.8 kg (89 lb 15.2 oz) SpO2 99% BMI 21.69 kg/m Physical Exam Constitutional: No distress. Asleep, opens eyes to name, appears not to be in any pain Rotated to the left Eyes: Right eye exhibits no discharge. Left eye exhibits no discharge. Cardiovascular: Normal rate, regular rhythm, normal heart sounds and intact distal pulses. No murmur heard. Pulmonary/Chest: Breath sounds normal. No respiratory distress. She has no wheezes. On 2L NC, O2 sat 98%, poor effort due to poor patient participation Abdominal: Soft. She exhibits distension. G-tube in place, CDI, well healed scar noted Baclofen pump palpated along right flank Genitourinary: Genitourinary Comments: Sage in place draining clear, light yellow urine Musculoskeletal: She exhibits deformity (spastic extremities). She exhibits no edema. Neurological: Nonverbal, awakens to name Skin: Skin is warm and dry. She is not diaphoretic. Vitals reviewed. Lines: Sage and LUE PIV, PEG Intake/Output last 3 shifts: I/O last 3 completed shifts: In: 1145 [NG/GT:80] Out: 3372 [Urine:3350; Blood:22] Results/Medications Reviewed 12/03/18 8:13 AM: Reviewed medications, vitals, radiology, consult notes Will discuss with Dr. Cowan, attending. Onelia Gutierrez D.O. PGY1 [facility] P: [phone] Assessment Detail: Based on current clinical information, expected date of discharge is TBD. Associated attestation - Katlin Cowan MD - 12/03/2018 10:55 AM EDT Patient seen and examined independently of Brandon Gutierrez and Wesly. Reviewed above history and physical exam with resident team. Agree with above assessment and plan. Assessment and Plan: 1. Sacral wound with osteomyelitis - POD#1 debridement of skin, muscle, and bone along with bone biopsy. Initially on vanco and cefepime, discontinued 2 days ago to increase wound culture yield during procedure and concern for chronic osteo. Plan to hold on abx for now. Await bone biopsy/culture. Sand bed for offloading. 2. Severe dehydration and hypernatremia - resolved s/p significant fluid hydration on admission. Continue to monitor BMP daily. Hypernatremia to 153 yesterday morning though had been NPO/no tube feeds the prior night. Improved to 146 this morning. 3. Chronic nutritional deficiency - PEG tube feeds. Also on pureed diet and ensure. Appreciate fancy stitcher recommendations. 4. Restrictive lung disease -secondary to scoliosis. Patient currently on home oxygen requirement of 4 L. 5. Urinary tract infection - s/p 3 days of cefipime. Urine culture with klebsiella. 6. Dispo: Pending * Courtney Peter, RD - 12/02/2018 11:13 AM EDT Nutrition Care Follow Up Monitoring and Evaluation: - Pt did not receive >80% of estimated enteral nutrition Nutrition Diagnosis: Swallowing difficulty related to cerebral palsy as evidenced by long-term need for enteral nutrition. Additional diagnosis: Increased energy and protein needs related to wound healing as evidenced by U/S wound to sacrum. Nutrition Prescription/Intervention: Diet: NPO Tube feed: Replete via PEG at 50ml/hr to provide 1200ml, 77g protein, 1008ml fluid. Free water 20ml/hr provides an additional 480ml fluid per day + water with meds for total fluid of >/=1488ml/day (36.4ml/kg). - If patient is discharged home would recommend a change in formula from Ensure Plus to Replete to more appropriately meet protein needs until wound is healed. If Mom continues to provide the puree meal via PEG at dinner then 4 cans of Replete per day in place of the the Ensure Plus would be sufficient to meet estimated needs. If she discontinues the puree meal then would recommend 5 cans/day. Nutrition Goals: Pt will receive 80% of estimated enteral nutrition goal Start Date:12/02/2018 Expected End Date:12/06/2018 Nutrition Education: No needs at this time Assessment: Pertinent clinical information: OR today for wound debridement and bone biopsy. Will likely need long-term antibiotics. Na+ returned to normal but now elevated again this AM. Height: 4' 6 Current weight: 40.8 kg (89 lb 15.2 oz) Body mass index is 21.69 kg/m . Wt Readings from Last 5 Encounters: 12/02/18 40.8 kg (89 lb 15.2 oz) 11/21/18 40.8 kg (90 lb) 10/07/18 40.8 kg (90 lb) 05/29/18 43.1 kg (95 lb) 01/07/18 40.8 kg (90 lb) Current diet order: NPO Tube feed: Replete at 50ml/hr with free water 20ml/hr Recent intake: 3 day average is 903ml/75% (held at midnight for OR) Current intake Likely does not meet estimated needs. Patient/family comments: Off unit Difficulty Chewing/Swallowing: Long-term need for PEG GI Function: LBM 4 -loose Skin integrity: U/S area to sacrum Recent Labs 12/02/18 0812 NA 153* K 4.3 BICARB 32 CL 109* GLUCOSE 96 BUN 10 CREATININE 0.29* Estimated Energy Needs Total Energy Estimated Needs: 7100-7575 kcal Method for Estimating Needs: 25-30 kcal/kg Total Protein Estimated Needs: 49-61g Method for Estimating Needs: 1.2-1.5g/kg Fluid Needs Total Fluid Estimated Needs: 1174-1408ml Method for Estimating Needs: 1ml/kcal Courtney Peter RD, Vocera [phone] * Onelia Acevedo DO - 12/02/2018 5:50 AM EDT DAILY PROGRESS NOTE - FAMILY MEDICINE Patient Name: Claudine Joseph MR #: [id number] Assessment/Plan: Perpetual Assessment: Claudine Joseph is a 28 y.o. female on hospital day 3 with a history of anoxic brain injury, cerebral palsy s/p baclofen pump, seizure, restrictive lung disease with chronic respiratory failure on 4L NC, aspiration, PEG tube, incontinence, chronic sacral ulcer, GERD, hypernatremia who presented to [facility] from home on 11/28/2018 with complaints of fever, increased respiratory requirements. She was found to be septic in the ED with source unclear if related to known UTI or sacralwound/osteomyelitis. Started on Vancomycin and Cefepime. Urine culture positive for Klebsiella susceptible to Cefepime, blood cultures NGTD x48h. Patient received 3 days Vancomycin and Cefepime, disco ntinued 12/01. Multiple specialists consulted for assistance. Sacral Wound with Osteomyelitis and Possible Abscess Chronic Ischial ulcer on exam 1cm dm, probed to > 5cm. CT suggestive of right ischial osteomyelitis. ESR mildly elevated to 38, CRP normal. Blood cultures x2 NG after 48 hours. - S/p 3 days Vanco and Cefepime. Antibiotics discontinued 12/01 per ID recs to increase wound culture yield. - Wound care consulted. Appreciate assistance. Recommending dressing changes q3d. Packed with Aquacel, clear aid barrier ointment. Offloading. - Morphine 5 mg tube q5h PRN for pain - ID and orthopedics consulted. Will likely need long-term antibiotics. Appreciate assistance. - Plan for debridement, bone biopsy and culture 12/02. Patient NPO. Hypernatremia Chronic. Elevated to 157 on admission consistent with baseline. Etiology likely due to dehydration,fluid loss from chronic sacral wound, and inadequate free water with tube feeds. Down-trending appropriately, Na 144 on 12/01/18 AM. Awaiting AM BMP for Na. - Continuous free water per tube at 20 mL/hr per nutrition. Free water flushes discontinued. Tube feeds initiated on 11/30/18. Appreciate nutrition assistance. - Daily BMP Uncomplicated Urinary Tract Infection- adequately treated Patient incontinent, unable to provide history of urinary symptoms. Requires intermittent straight cath but otherwise wears diaper at home. UA with small LE, pyuria, and many bacteria. Possibility ofcolonization. - Urine culture positive for >100,000 CFU/mL Klebsiella pneumonia susceptible to Cefepime. Received 3day course of Cefepime, which is sufficient for uncomplicated Klebsiella UTI per ID. Appreciateassistance. Nutritional Deficiency Patient likely dehydrated. Tube feeds through PEG. Pureed food every evening, Ensure, and TF/fluidsovernight. - Increase free water flushes, 200 mL q8h. D5 infusion discontinued. - Captain Waiter/Waitress consulted. Appreciate assistance with nutrition. Tube feeds initiated 11/30. Chronic hypoxic respiratory failure with hypercapnia Baseline severe restrictive lung disease 2/2 scoliosis. Home requirement 4L. Increased requirement on presentation. - Patient back to below home O2 requirement of 4L. On 3L NC this AM with O2 sat 96%. Spastic Cerebral Palsy Chronic. Complicated by seizure history. Managed with Baclofen pump (recently refilled 11/20), anti-epileptics, and PEG tube. Follows with Dr. Murphy. Requires straight cath intermittently. - Continue home anti-epileptics (lamictal 250 mg BID and keppra 1000 mg BID) and intrathecal baclofen. Valium 6 mg PRN Epilepsy Prior anoxic brain injury at . - Continue home anti-epileptics (lamictal 250 mg BID and keppra 1000 mg BID) and intrathecal baclofen. Valium 6 mg PRN - Seizure precautions GERD Per history. - Continue PPI Dispo: home DVT Prophylaxis: Lovenox Code Status: FULL CODE Subjective/Objective: S: Patient sleeping on exam but opens eyes to name. Appears to be in no distress. She was examined by both ID and ortho yesterday 12/01. Antibiotics were discontinued and plan for bone biopsy today. Per nursing report, no concerns over night. Tube feeds were stopped at midnight and patient has looked comfortable. Review of Systems: Review of Systems Unable to perform ROS: Patient nonverbal Physical Examination: BP 112/74 (BP Location: Left leg, Patient Position: Lying) Pulse 99 Temp 99.2 F (37.3 C) (Oral) Resp 16 Ht 4' 6 Wt 40.8 kg (90 lb) SpO2 96% BMI 21.70 kg/m Physical Exam Constitutional: No distress. Asleep, opens eyes to name, appears to not be in any pain Rotated to the left Eyes: Right eye exhibits no discharge. Left eye exhibits no discharge. Cardiovascular: Normal rate, regular rhythm, normal heart sounds and intact distal pulses. No murmur heard. Pulmonary/Chest: Breath sounds normal. No respiratory distress. She has no wheezes. On 2L NC, O2 sat 98% Abdominal: Soft. She exhibits distension (less distension than on 12/01). G-tube in place, CDI, well healed scar noted Baclofen pump palpated along right flank Genitourinary: Genitourinary Comments: Sage in place draining clear, light yellow urine Musculoskeletal: She exhibits deformity (spastic extremities). She exhibits no edema. Neurological: Nonverbal, awakens to name Skin: She is not diaphoretic. Vitals reviewed. Lines: Sage and LUE PIV, PEG Intake/Output last 3 shifts: I/O last 3 completed shifts: In: 5314.5 [I.V.:766.6; NG/GT:1641; IV Piggyback:1859.9] Out: 2400 [Urine:2400] Results/Medications Reviewed 12/02/18 5:50 AM: Reviewed medications, vitals, radiology, consult notes Will discuss with Dr. Cowan, attending. Onelia Gutierrez D.O. PGY1 [facility] P: [phone] Assessment Detail: Based on current clinical information, expected date of discharge is TBD. Associated attestation - Katlin Cowan MD - 12/02/2018 4:39 PM EDT Patient seen and examined independently of Brandon Gutierrez and Wesly. Reviewed above history and physical exam with resident team. Agree with above assessment and plan. Assessment and Plan: 1. Sacral wound with osteomyelitis - Plan for debridement, bone biopsy and culture today. Initiallyon vanco and cefepime, discontinued yesterday to increase wound culture yield. Plan to restart after procedure complete. Sand bed for offloading. 2. Severe dehydration and hypernatremia - resolved s/p significant fluid hydration on admission. Continue to monitor BMP daily. Hypernatremia to 153 this morning. Did not receive tube feeds or free water overnight d/t NPO for OR today. 3. Chronic nutritional deficiency - PEG tube feeds. Also on pureed diet and ensure. Appreciate fancy stitcher recommendations. 4. Restrictive lung disease -secondary to scoliosis. Patient currently on home oxygen requirement of 4 L. 5. Dispo: Pending * Peter Perez MD - 12/01/2018 5:46 PM EDT The patient was seen in conjunction with the mid-level provider and I agree with the HPI, exam, andplan as stated. 28F with R ischial decubitus ulcer, likely chronic osteomyelitis as demonstrated by tracking of ulcer down to ischium with associated erosive changes. -no urgent/emergent intervention indicated as patient is not acutely ill -will assist by performing debridement, bone bx and culture tomorrow -NPO at midnight -defer further treatment to primary, ID and wound RN teams * Donnie Mock MD - 12/01/2018 10:20 AM EDT Clinic Surgery Daily Progress Note Patient Name: Claudine Joseph MR #: [id number] : 1990 Chief Complaint/Reason for Visit: Chief Complaint Patient presents with Fever Respiratory Distress Assessment and Plan: 28 y.o. female with h/o seizures, cerebral palsy, GERD, chronic aspiration, previous MRSA pneumoniacausing acute respiratory failure, Prior CCY, PEG tube placement, who presented to [facility] on 11/29 with fever and hypoxia, found to have sepsis of unknown origin. General surgery consulted to evaluate sacral decubitus ulcer with abscess and osteomyelitis of the R ischium. CT C/A/P with IV contrast 11/28: Partially visualized skin defect is seen in the inferior posteromedial right gluteal region with heterogeneous area of soft tissue thickening seen in the underlying subcutaneous tissues containing gas and fluid density, measuring at least 5 cm, suggestive of a decubitus ulcer with abscess formation. Soft tissue thickening is seen extending to the right ischium wherecortical erosive changes are seen, suggestive of osteomyelitis of the underlying right ischium. Osteomyelitis of R Ischium Pressure ulcer -Wound inspected, and Aquacel packing removed, no purulence or erythema. CAT scan reviewed and doesshow air tracking deep, which may be sequelae of an open wound. No need for debridement of wound, recommend local wound care. If concern for underlying osteomyelitis, would defer tissue biopsy to orthopedics. Would recommend against a flap for coverage as this is a pressure ulcer in a patient with CP, and a flap would have a low likelihood of success. Offloading is the most important aspect of her care. Review of Systems: The following system(s) were reviewed. Pertinent positive and negative findings are noted in the HPI. [x] Const [x] Eyes [] ENT [x] Resp [x] CV [x] GI [] [x] Neuro [x] Musc [x] Skin [] Psych [] Endo [] Allergy [] Heme/Lymph Physical Examination: General: Nonverbal, no acute distress Head: normocephalic, atraumatic Eyes: no scleral icterus, EOM grossly intact Neck: trachea midline, soft Cardiovascular: hemodynamically stable, regular rate Pulmonary: nonlabored breathing, equal chest rise Abdomen: soft, non-tender, non-distended, no peritoneal signs Extremities: no obvious deformities, WWP Skin: warm, dry and intact, R ulcer, approx 1 cm x 1 cm, no erythema, no palpable fluctuance or induration, tracks approx 5 cm deep, SS drainage on packing Neurological: PAREDES, no focal deficits Donnie CONNOR5, , [place] [phone] Pager If you cannot reach me, please page [phone] * Onelia Acevedo DO - 12/01/2018 5:54 AM EDT DAILY PROGRESS NOTE - FAMILY MEDICINE Patient Name: Claudine Joseph MR #: [id number] Assessment/Plan: Perpetual Assessment: Claudine Joseph is a 28 y.o. female on hospital day 2 with a history of anoxic brain injury, cerebral palsy s/p baclofen pump, seizure, restrictive lung disease with chronic respiratory failure on 4L NC, aspiration, PEG tube, incontinence, chronic sacral ulcer, GERD, hypernatremia who presented to [facility] from home on 11/28/2018 with complaints of fever, increased respiratory requirements. She was found to be septic in the ED with source likely osteomyelitis and sacral abscess as noted on CT. Patient receiving Vancomycin and Cefepime. Patient's urine culture also positive for Klebsiella susceptible to Cefepime. Multiple specialists consulted for assistance. Sacral Wound with Osteomyelitis and abscess Ischial ulcer on exam 1cm dm, probed to > 5cm. CT with right gluteal soft tissue thickening in underlying subcutaneous tissues containing gas and fluid density, measuring at least 5 cm, suggestive of a decubitus ulcer with abscess formation. Soft tissue thickening extends to right ischium wherecortical erosive changes are seen, suggestive of osteomyelitis of underlying right ischium as seenon CT after second read. ESR mildly elevated to 38, CRP normal. Blood cultures x2 NG after 48 hours. - Continue current antibiotics Vancomycin and Cefepime. 12/01 day 3 of antibiotics. Will narrow as needed once cultures return. - Wound care consulted. Appreciate assistance. Recommending dressing changes q3d. Packed with Aquacel, clear aid barrier ointment. - Morphine 5 mg tube q5h PRN for pain - Consulted with multiple specialists. General surgery evaluated patient, recommending no wound debridement at this time and to continue local wound care. Recommendations to consult ID and orthopedics for management and possible bone biopsy to guide antibiotic therapy. - ID consult placed for assistance with antibiotic coverage. Discussed case with Dr. Padilla who recommended debridement with flap placement. Hypernatremia Chronic. Elevated to 157 on admission consistent with baseline. Etiology likely due to dehydration,fluid loss from chronic sacral wound, and inadequate free water with tube feeds. Down-trending appropriately, Na 146 on 11/30/18 in evening. Awaiting AM BMP for Na. - Free water deficit 1.0L. Continue free water flushes 200 mL q8h through G- tube. Discontinued D5 infusion. Tube feeds initiated on 11/30/18. - BMP q12h Urinary Tract Infection Patient incontinent and unable to provide history of urinary symptoms. Requires intermittent straight cath but otherwise wears diaper at home. UA with small LE, pyuria, and many bacteria. - Urine culture positive for >100,000 CFU/mL Klebsiella pneumoniae - Continue current antibiotic therapy. Susceptible to Cefepime. 12/01 is day 3 of antibiotics. Nutritional Deficiency Patient likely dehydrated. Tube feeds through PEG. Pureed food every evening, Ensure, and TF/fluidsovernight. - Increase free water flushes, 200 mL q8h. D5 infusion discontinued. - Captain Waiter/Waitress consulted. Appreciate assistance with nutrition. Tube feeds initiated 11/30. Hypotension- resolved Likely due to fluid status changes. Low BP was while patient was sleeping. Lowest BP 84/50. Latest BP 111/63, near baseline for patient. - Patient is being fluid resuscitated due to hypotension and hypernatremia. Chronic hypoxic respiratory failure with hypercapnia Baseline severe restrictive lung disease 2/2 scoliosis. Home requirement 4L. Increased requirement on presentation. - Patient back to below home O2 requirement of 4L. On 2L NC this AM with O2 sat 98%. Spastic Cerebral Palsy Chronic. Complicated by seizure history. Managed with Baclofen pump (recently refilled 11/20), anti-epileptics, and PEG tube. Follows with Dr. Murphy. Requires straight cath intermittently. - Continue home anti-epileptics (lamictal 250 mg BID and keppra 1000 mg BID) and intrathecal baclofen. Valium 6 mg PRN Epilepsy Prior anoxic brain injury at . - Continue home anti-epileptics (lamictal 250 mg BID and keppra 1000 mg BID) and intrathecal baclofen. Valium 6 mg PRN - Seizure precautions GERD Per history. - Continue PPI Dispo: home DVT Prophylaxis: Lovenox Code Status: FULL CODE Subjective/Objective: S: Patient doing well this morning per nursing. She is awake upon entering room and responds to name. When asked if she is in pain, she does not blink yes per the instructions her mom/caregiver gave me on the day of admission. She has been receiving antibiotics, tolerating them well, and started on tube feeds. Per nursing report, no concerns overnight other than some dried blood seen around the dressing of the sacral wound. There was concern that this could be from the sage, however, no blood seen around urethra. Sage draining clear, light yellow urine. No blood seen on exam today. Blood likely from probing upon surgical exam yesterday. Review of Systems: Review of Systems Unable to perform ROS: Patient nonverbal Physical Examination: BP 111/63 (BP Location: Left leg, Patient Position: Lying) Pulse (!) 106 Temp 97.7 F (36.5 C) (Oral) Resp 16 Ht 4' 6 Wt 40.8 kg (90 lb) SpO2 96% BMI 21.70 kg/m Physical Exam Constitutional: No distress. Awake, opens eyes to name, appears to not be in any pain Rotated to the left HENT: Right Ear: External ear normal. Left Ear: External ear normal. Eyes: Conjunctivae are normal. Right eye exhibits no discharge. Left eye exhibits no discharge. No scleral icterus. Neck: Neck supple. B/l scars noted, well-healed Cardiovascular: Normal rate, regular rhythm, normal heart sounds and intact distal pulses. No murmur heard. Pulmonary/Chest: Breath sounds normal. No respiratory distress. She has no wheezes. On 2L NC, O2 sat 100% Abdominal: Soft. She exhibits distension (slight distension compared to previous exams). G-tube in place, CDI Baclofen pump palpated along right flank Genitourinary: Genitourinary Comments: Sage in place draining clear, light yellow urine No trauma surrounding follow placement to indicate source of dried blood from nursing report Musculoskeletal: She exhibits deformity (spastic extremities). She exhibits no edema. Sacral ulcer right buttock near gluteal fold 1 cm in dm, no fluctuance, induration, or erythema. Noactive drainage, minimal bleeding. Covered with dressing this morning. Neurological: She is alert. Nonverbal, somnolent this AM Skin: Skin is warm and dry. Capillary refill takes less than 2 seconds. She is not diaphoretic. No erythema. Sacral ulcer covered in dressing Vitals reviewed. Lines: Sage and LUE PIV, PEG Intake/Output last 3 shifts: I/O last 3 completed shifts: In: 3014 [I.V.:766.6; NG/GT:1180; IV Piggyback:1067.3] Out: 1825 [Urine:1825] Results/Medications Reviewed 12/01/18 7:38 AM: Reviewed medications, vitals, radiology, consult notes Will discuss with Dr. Brar, attending. Onelia Gutierrez D.O. PGY1 [facility] P: [phone] Assessment Detail: Based on current clinical information, expected date of discharge is TBD. Associated attestation - Fidencio Brar MD - 12/01/2018 12:22 PM EDT ATTESTATION TO RESIDENT NOTE The patient was seen and examined independently from resident. All vital signs, laboratory studies,imaging, and consultation notes, and other pertinent data were reviewed. I agree with the impression and plan as outlined with the following additions and/or modifications. Claudine Joseph is a 28 y.o. female with a hx of spastic paralysis from cerebral palsy, sacral ulcer who presented on 11/28/2018 for sepsis Sacral wound with abscess and osteomyelitis- Appreciate wound care: Packed with Aquacel, clear aid barrier ointment applied Will rediscuss with orthopedic surgery as patient needs source control 2. Hypernatremia-sodium of 146 Slowly correcting about 7 in 24 hours. Stop flushes and transition to continuous water with feeds 3. Possible UTI Difficult to determine whether patient with symptoms, possible colonization. Willl continue antibiotic coverage for osteo as above. Continue sage catheterization for sacral wound healing, await further guidance from ortho ID consult pending 4. Nutritional deficiency-appreciate registered dietitian. Will hold on feeds for now given possible surgery. Would like to move to bolus feeding as soon as possible as this is what patient experiences at home. We will discuss this further with dietetics Fidencio Brar MD 9:41 AM 12/01/18 * Mignon Castillo [facility],PharmD - 11/30/2018 12:49 PM EDT PHARMACOTHERAPY NOTE: Antimicrobial Therapy Follow-up Assessment / Plan: 1. Patient initiated on vancomycin and cefepime for sacral osteomyelitis and a UTI. Vancomycin trough goal is 15-20 mcg/mL. Pre-4th dose trough was subtherapeutic at 11.0mcg/mL today. I would expect this level will continueto trend up, but I would favor increasing the dose slightly from 750mg to 850mg q12h today given the presence of osteomyelitis. Will monitor serum creatinine levels and urine output (if available) daily. Pharmacy will continue to follow, order levels, and make adjustments/recommendations as needed. Subjective: Claudine Joseph is a 28 y.o. female initiated on antimicrobial therapy for sacral osteomyelitis and a UTI. Current antibiotic regimen includes day three of antibiotics. Objective: Labs include: WBC (K/mcL) Date Value 11/30/2018 10.65 04/22/2017 11.6 (H) BUN (mg/dL) Date Value 11/30/2018 14 04/22/2017 13 Creatinine (mg/dL) Date Value 11/30/2018 <0.20 (L) 04/22/2017 0.44 CrCl cannot be calculated (This lab value cannot be used to calculate CrCl because it is not a number: <0.20). Patient Tmax (last 24 hours): AFeb Micro: urine - GNB Therapeutic Drug Monitoring: Last vancomycin dose administered @ 23:47 on 4/2 Vancomyicin drug level: 11.0mcg/mL @ 11:09 on 11/30 Pharmacist: Mignon Castillo [facility],PharmD Contact Number: [phone] * Onelia Acevedo - 11/30/2018 6:42 AM EDT DAILY PROGRESS NOTE - FAMILY MEDICINE Patient Name: Claudine Joseph MR #: [id number] Assessment/Plan: Perpetual Assessment: Claudine Joseph is a 28 y.o. female on hospital day 1 with a history of anoxic brain injury, cerebral palsy s/p baclofen pump, seizure, restrictive lung disease with chronic respiratory failure on 4L NC, aspiration, PEG tube, incontinence, chronic sacral ulcer, GERD, hypernatremia who presented to [facility] from home on 11/28/2018 with complaints of fever, increased respiratory requirements, and sickness. She was found to be septic in the ED with source likely osteomyelitis and sacral abscess as noted on CT. Patient's urine culture also positive. Patient receiving Vancomycin and Cefepime. Ortho and ID consulted for assistance. Osteomyelitis with sacral abscess Ischial ulcer on exam 1cm dm, probed to > 5cm. CT with right gluteal soft tissue thickening in underlying subcutaneous tissues containing gas and fluid density, measuring at least 5 cm, suggestive of a decubitus ulcer with abscess formation. Soft tissue thickening extends to right ischium wherecortical erosive changes are seen, suggestive of osteomyelitis of underlying right ischium as seenon CT after second read. ESR mildly elevated to 38, CRP normal - Continue current antibiotics. Will narrow as needed once cultures return. - IR consulted for drainage of abscess. Spoke with IR, Dr. Faria. Recommendation was to consult Ortho for possible debridement as this is an open wound and ID for antibiotic considerations. IR consult discontinued. Red Man Syndrome- resolved S/p completion of second vancomycin infusion. Patient with flushing of face, neck, upper chest, andshoulders. Benadryl 25 mg IV once given. Infusion rate halved for subsequent vancomycin infusions. - No reaction after last dose at halved infusion rate. Sepsis- resolved Etiology unknown but likely 2/2 osteomyelitis although other possibilities include urinary source or aspiration, pneumonia, pneumonitis given increased respiratory requirements. Presenting with [id number], HR 138, RR 25. CXR limited by rotation but with diffuse hazziness. Flu negative. - UA with small LE, WBCs, many bacteria. Treated empirically with Vancomycin and Cefepime in ED. Blood cultures NGTD with plan to de-escalate. Urine culture pending. Lactic acid improved from 2.9 to 1.3 s/p 2L bolus in ED. Continue Vancomycin 750 mg IV q12h and Cefepime 2g IV q8h. - RUE PICC line removed in ED (placed in April although not used since that time) - ESR mildly elevated to 38, CRP normal Hypernatremia Chronic. Elevated to 161 on admission (from 157 on 10/07/18). Etiology likely due to dehydration and inadequate free water with tube feeds. Down-trending appropriately, Na 151 on 11/30/18. - Free water deficit 1.6L. Continue free water flushes 200 mL q8h through G- tube. Discontinued D5 infusion. - BMP q12h Sacral Wound Chronic right buttocks ulcer, in context of immobility and nutrition deficiency. Probes >5 cm. Patient did have previous wound vac 3 weeks ago. - Dressing changed in ED at bedside - Consult wound care. Appreciate assistance. Recommending dressing changes q3d. If patient remains incontinent purewick or sage can be put in place. Abnormal Urinalysis Patient incontinent and unable to provide history of urinary symptoms. Requires intermittent straight cath but otherwise wears diaper at home. UA with small LE, pyuria, and many bacteria. - Urine culture positive for enteric gram negative bacilli - Continue current antibiotic therapy. Await sensitivities to narrow antibiotics. Nutritional Deficiency Patient likely dehydrated. Tube feeds through PEG. Pureed food every evening, Ensure, and TF/fluidsovernight. Patient has not had feeds since admission. - Increase free water flushes, 200 mL q4h. Will discontinue D5 infusion. - Captain Waiter/Waitress consulted. To see patient first this morning. Appreciate assistance with nutrition. Hypotension Likely due to fluid status changes. Low BP was while patient was sleeping. Lowest BP 84/50. - Patient is being fluid resuscitated due to hypotension and hypernatremia. Chronic hypoxic respiratory failure with hypercapnia Baseline severe restrictive lung disease 2/2 scoliosis. Home requirement 4L. Increased requirement on presentation. - Wean O2 as able, vibratory PEP and IS as able. Patient back to below home O2 requirement of 4L. On 2L NC this AM with O2 sat 98%. Spastic Cerebral Palsy Chronic. Complicated by seizure history. Managed with Baclofen pump (recently refilled 11/20), anti-epileptics, and PEG tube. Follows with Dr. Murphy. Requires straight cath intermittently. - Continue home anti-epileptics (lamictal 250 mg BID and keppra 1000 mg BID) and intrathecal baclofen. Valium 6 mg PRN - In context of sepsis/infection, may have decreased seizure threshold - OT/PT consulted Epilepsy Prior anoxic brain injury at . - Continue home anti-epileptics (lamictal 250 mg BID and keppra 1000 mg BID) and intrathecal baclofen. Valium 6 mg PRN - Seizure precautions GERD Per history. - Continue PPI Dispo: home DVT Prophylaxis: Lovenox Code Status: FULL CODE Subjective/Objective: S: Patient is more somnolent this morning, Awakens to sternal rub and appears to not be pain, sleeping comfortably. Patient unable to answer questions as she is nonverbal. Mom is not in there room. Per nursing report patient slept well overnight, did not have any reaction after Vanco infusion, and has been difficult to arouse. There was concern for decreased BP, however, these measurements weretaken while patient was sleeping. Additionally, nursing has been straight cathing patient and getting quite a bit of urine out without any leakage in the diaper. Purewick is no longer in place. Nursing asking for sage order. Review of Systems: Review of Systems Unable to perform ROS: Patient nonverbal Physical Examination: BP (!) 89/59 (BP Location: Left arm, Patient Position: Lying) Pulse 76 Temp 97.5 F (36.4 C) (Axillary) Resp 14 Ht 4' 6 Wt 40.8 kg (90 lb) SpO2 98% BMI 21.70 kg/m Physical Exam Constitutional: No distress. Sleeping and somnolent on exam. Awakens with sternal rub. Rotated to the left HENT: Right Ear: External ear normal. Left Ear: External ear normal. Eyes: Conjunctivae are normal. Right eye exhibits no discharge. Left eye exhibits no discharge. No scleral icterus. Neck: Neck supple. B/l scars noted, well-healed Cardiovascular: Normal rate, regular rhythm, normal heart sounds and intact distal pulses. No murmur heard. Pulmonary/Chest: Breath sounds normal. No respiratory distress. She has no wheezes. Abdominal: Soft. She exhibits no distension. G-tube in place, CDI Baclofen pump palpated along right flank Musculoskeletal: She exhibits deformity (spastic extremities). She exhibits no edema. Sacral ulcer right buttock near gluteal fold 1 cm in dm, no fluctuance, induration, or erythema. Noactive drainage, minimal bleeding. Covered with dressing this morning. Neurological: Nonverbal, somnolent this AM Skin: Skin is warm and dry. Capillary refill takes less than 2 seconds. No erythema. Vitals reviewed. Lines: No sage and LUE PIV, PEG Intake/Output last 3 shifts: I/O last 3 completed shifts: In: 603.9 [NG/GT:400; IV Piggyback:203.9] Out: 1450 [Urine:1450] Results/Medications Reviewed 11/30/18 8:18 AM: Reviewed medications, vitals, radiology, consult notes Will discuss with Dr. Brar, attending. Onelia Gutierrez D.O. PGY1 [facility] P: [phone] Assessment Detail: Based on current clinical information, expected date of discharge is TBD. Associated attestation - Fidencio Brar MD - 11/30/2018 11:34 AM EDT ATTESTATION TO RESIDENT NOTE The patient was seen and examined independently from resident. All vital signs, laboratory studies,imaging, and consultation notes, and other pertinent data were reviewed. I agree with the impression and plan as outlined with the following additions and/or modifications. . Claudine Joseph is a 28 y.o. female with a hx of spastic paralysis from cerebral palsy, sacral ulcer who presented on 11/28/2018 for sepsis Sepsis-(resolved) Clinically improved with antibiotics and fluid resuscitation Continue Vanco and cefepime, will obtain MRSA swab to discontinue vancomycin Most likely source of sacral abscess with osteomyelitis, will talk to general surgery about debridement. Patient also with urine culture showing gram-negative bacilli but it is unclear if this is contaminant or if she is chronically colonized. Hypernatremia-sodium of 157 similar to baseline from 1 month ago. Likely due to dehydration and losses from wound Slowly correcting about 7 in 24 hours. We will transition to q. 8 flushes with free water with the hope to move to bolus feeding after assessment for possible debridement by general surgery Sacral wound with abscess and osteomyelitis- Appreciate wound care: Packed with Aquacel, clear aid barrier ointment applied We will discuss with general surgery as above Nutritional deficiency-appreciate registered dietitian. Will hold on feeds for now given possible surgery. Would like to move to bolus feeding as soon as possible as this is what patient experiences at home. We will discuss this further with dietetics Fidencio Brar MD 11:28 AM 11/30/18 * Onelia Acevedo DO - 11/29/2018 5:47 AM EDT DAILY PROGRESS NOTE - [facility] Patient Name: Claudine Joseph MR #: [id number] Assessment/Plan: Perpetual Assessment: Claudine Joseph is a 28 y.o. female on hospital day 0 with a history of anoxic brain injury, cerebral palsy s/p baclofen pump, seizure, restrictive lung disease with chronic respiratory failure on 4L NC, aspiration, PEG tube, incontinence, chronic sacral ulcer, GERD, hypernatremia who presented to [facility] from home on 11/28/2018 with complaints of fever, increased respiratory requirements, and sickness. She was found to be septic in the ED with unknown source but likely urinary source. Sepsis Etiology unknown but likely 2/2 urinary source although other possibilities include chronic sacral ulcer, osteomyelitis, or aspiration, pneumonia, pneumonitis given increased respiratory requirements. Presenting with fever 100.9F, HR 138, RR 25. CXR limited by rotation but with diffuse hazziness. Flu negative. - UA with small LE, WBCs, many bacteria. Treated empirically with Vancomycin and Cefepime in ED. Blood cultures NGTD with plan to de-escalate. Urine culture pending. Lactic acid improved from 2.9 to 1.3 s/p 2L bolus in ED. Continue Vancomycin 750 mg IV q12h and Cefepime 2g IV q8h. - RUE PICC line removed in ED (placed in April although not used since that time) - Would consider CT sacrum to further evaluate for osteo. Will add on ESR, CRP to labs. Hypernatremia Chronic. Elevated to 155 on admission (from 157 on 10/07/18). Etiology likely due to dehydration and inadequate free water with tube feeds. - Free water deficit 3.7L - BMP q6h, goal 10 mEq in first 24 hours. Sacral Wound Chronic right buttocks ulcer, in context of immobility and nutrition deficiency. Probes several cm.Patient did have previous wound vac 3 weeks ago. - Dressing changed in ED at bedside - Consult wound care. Appreciate assistance. Nutritional Deficiency Patient likely dehydrated. Tube feeds through PEG. Pureed food every evening, Ensure, and TF/fluidsovernight. - Currently NPO. Increase free water. - Captain Waiter/Waitress consulted. Appreciate assistance. Chronic hypoxic respiratory failure with hypercapnia Baseline severe restrictive lung disease 2/2 scoliosis. Home requirement 4L. Increased requirement on presentation. - Wean O2 as able, vibratory PEP and IS as able. Patient back to home O2 requirement of 4L. Spastic Cerebral Palsy Chronic. Complicated by seizure history. Managed with Baclofen pump (recently refilled 11/20), anti-epileptics, and PEG tube. Follows with Dr. Murphy. Requires straight cath intermittently. - Continue home anti-epileptics (lamictal 250 mg BID and keppra 1000 mg BID) and intrathecal baclofen. Valium 6 mg PRN - In context of sepsis/infection, may have decreased seizure threshold - OT/PT consulted Epilepsy Prior anoxic brain injury at . - Continue home anti-epileptics (lamictal 250 mg BID and keppra 1000 mg BID) and intrathecal baclofen. Valium 6 mg PRN - Seizure precautions GERD Per history. - Continue PPI Dispo: home DVT Prophylaxis: Lovenox Code Status: FULL CODE Subjective/Objective: S: Patient's health policy nurse and adopted mom states that Claudine looks much better this morning after coming in last evening. She is back on her home O2 requirements, 3.5L this AM and O2 sats of 97%. She states that yesterday she noted her heart rate increasing as well as respiratory rate. In addition, she noted a increased temperature, almost up to 101F. When listening to her lungs she felt thatthey sounded wet. She admits that she straight caths patient if she has not urinated in 10 hours; however, lately she has been cathing every 6-7 hours to keep her diaper more dry to help the sacral wound heal quicker. She has an appointment on 01/05 for the sacral ulcer. She had a PICC lined placedin April for antibiotic therapy. Three weeks ago a wound vac was placed but mother states this made things worse. She states that the worse has progressively gotten deeper but has not increased in circumference. She does go to a wound clinic every Wednesday in [facility] for wound clinic. Mom changes the dressing every time she changes her diaper. When patient asked if she was in any patient, she responded no via blinking with interpretation from mom. Mom states patient has small seizures daily seen as twitching and that this has been her baselineand controlled with the current seizure medications. Per nursing report patient doing and looking much better than upon presentation. Review of Systems: Review of Systems Unable to perform ROS: Patient nonverbal Physical Examination: BP 106/64 (BP Location: Left arm, Patient Position: Sitting) Pulse 93 Temp 99.5 F (37.5 C) (Oral) Resp 17 Ht 4' 6 Wt 40.8 kg (90 lb) SpO2 96% BMI 21.70 kg/m Physical Exam Constitutional: No distress. Pleasant, sleeping on evaluation but awoke and responded to several questions Rotated to the left HENT: Right Ear: External ear normal. Left Ear: External ear normal. Dry lips Eyes: Conjunctivae are normal. Right eye exhibits no discharge. Left eye exhibits no discharge. No scleral icterus. Neck: Neck supple. B/l scars noted, well-healed, from salivary gland removal Cardiovascular: Normal rate, regular rhythm, normal heart sounds and intact distal pulses. No murmur heard. Pulmonary/Chest: Breath sounds normal. No respiratory distress. She has no wheezes. Abdominal: Soft. Bowel sounds are normal. She exhibits no distension. G-tube in place, CDI Baclofen pump palpated along right flank Musculoskeletal: She exhibits deformity (spastic extremities). She exhibits no edema. Sacral ulcer right buttock near gluteal fold 1 cm in dm, no fluctuance, induration, or erythema. Noactive drainage, minimal bleeding. When probed, 4.5 cm deep. See image below. Neurological: She is alert. Nonverbal, communicates via blinking Skin: Skin is warm and dry. Capillary refill takes less than 2 seconds. No erythema. Vitals reviewed. Lines: No sage and LUE PIV, PEG Media Information Document Information Pictures 11/29/2018 07:37 Attached To: Hospital Encounter on 11/28/18 Source Information Onelia Colon DO [facility] Emergency Dept Intake/Output last 3 shifts: No intake/output data recorded. Results/Medications Reviewed 11/29/18 5:48 AM: Reviewed medications, vitals, radiology, consult notes Will discuss with Dr. Brar, attending. Onelia Gutierrez D.O. PGY1 [facility] P: [phone] Assessment Detail: Based on current clinical information, expected date of discharge is TBD. Associated attestation - Fidencio Brar MD - 11/29/2018 11:45 AM EDT ATTESTATION TO RESIDENT NOTE The patient was seen and examined independently from resident. All vital signs, laboratory studies,imaging, and consultation notes, and other pertinent data were reviewed. I agree with the impression and plan as outlined with the following additions and/or modifications. Please see H&P signed on the same day for further details. Claudine Joseph is a 28 y.o. female with a hx of spastic paralysis from cerebral palsy, sacral ulcer who presented on 11/28/2018 for sepsis Sepsis-SIRS with fever, tachycardia, tachypnea. Confusion worse than baseline as endorgan dysfunction, source unknown but suspect sacral wound. Patient has also had bilateral MRSA pneumonia in the past Clinically improved with mental status back to baseline per caregiver Lactate resolved Continue Vanco and cefepime Status post adequate fluid resuscitation, will add D5W to correct hyponatremia as below Wound care to assess wound, unable to see base. Will discuss with radiology as sacrum not commentedon in CT scan with contrast but if any periosteal inflammation or edema on scan we will treat for osteomyelitis. Unable to get MRI given hardware Hypernatremia-sodium of 157 similar to baseline from 1 month ago. Likely due to dehydration and losses from wound We will add D5W at 50 cc/h while in the ER as they are unable to do free water per tube Add 200 cc free water per tube every 4 hours when on the floor for slow correction Sacral wound- wound care to assess Nutritional deficiency- Pt with likely increased metabolic demand given her sepsis as well as her large sacral wound. Will discuss with ID but likely needs at least 20% correction from BMR Fidencio Brar MD 11:39 AM 11/29/18 * Leonidas Cano, [facility],PharmD - 11/29/2018 3:46 AM EDT PHARMACOTHERAPY NOTE: Antimicrobial Therapy Initiation Assessment / Plan: 1. Patient initiated on vancomycin 750mg IV Q12h for sepsis. 2. Vancomycin trough goal is 15-20 mcg/mL. Will obtain level when at steady state or when clinically appropriate. 3. Will monitor serum creatinine levels and urine output (if available) daily. 4. Pharmacy will continue to follow, order levels, and make adjustments as needed. Please call pharmacy with questions. Subjective: Claudine Joseph is a 28 y.o. female initiated on antimicrobial therapy for sepsis. Current antibiotic regimen includes: cefepime 2g IV Q8h Past medical history reviewed. Past Medical History: Diagnosis Date Acute respiratory failure (HCC) Due to MRSA pneumonia 04/2016; Allergic rhinitis Anoxic brain damage (HCC) Aspiration, chronic pulmonary Bowel and bladder incontinence Cerebral palsy (HCC) Chronic respiratory failure with hypoxia (HCC) Constipation GERD (gastroesophageal reflux disease) occasional vomiting with gagging MRSA (methicillin resistant Staphylococcus aureus) 04/2016 Bilateral lungs Nonverbal Answers yes with very long blinks per adoptive parent Postoperative retention of urine occasional occurrence that requires straight cath periodically Restrictive lung disease due to kyphoscoliosis Seizures (HCC) Daily occurrence-Neuro- adoptive mother can't remember name of urologist Objective: Ht Readings from Last 1 Encounters: 11/28/18 4' 6 (137.2 cm) Wt Readings from Last 1 Encounters: 11/28/18 40.8 kg (90 lb) [place] body weight: 40.9 kg (90 lb 1.1 oz) Labs include: WBC (K/mcL) Date Value 11/28/2018 9.45 04/22/2017 11.6 (H) BUN (mg/dL) Date Value 11/28/2018 16 04/22/2017 13 Creatinine (mg/dL) Date Value 11/28/2018 0.37 (L) 04/22/2017 0.44 Estimated Creatinine Clearance: 145.8 mL/min (A) (by C-G formula based on SCr of 0.37 mg/dL (L)). Patient Tmax (last 24 hours): 100.9F (4/1 1910) Micro: 11/28 blood/urine aerobic cx in process Leonidas Cano RPh,PharmD [phone] in this encounter* Yany Wright CNP - 04/26/2017 1:44 PM EDT Formatting of this note may be different from the original. NEUROLOGY Outpatient Follow-Up [facility] [address] [place] [address], [address] [place] [address] (office) / [phone] (fax) Patient Name: Claudine Joseph : 1990 MR #: [id number] Date of Neurology Follow-up: 04/26/17 Name of Provider: JONNATHAN Gomez, ROCKY Other Physicians: Colette Goode MD (Primary Care Physician) Chief Complaint: Follow-up for Seizures (Follow up seizures) 26 y.o. female with CP in setting of Anoxic Brain Injury with history of Spasticity, MRSA, ARF, Kidney Stones and Seizures returning for follow-up regarding a chief complaint of Seizures (Little ones every other day with reports of intensity improvement and reports Big ones not as intense and du ration has decreased since starting Lamictal). Mother provides history. Interval History: Seizures are subtle, not as intense. Reports dropping down to 80-81% oxygen with her seizures requiring ED visit last Wednesday. Reports did have adverse effect Levaquin. On doxycycline and had a dose of Rocephin. Reports not every day which is an improvement. Reports cluster of seizures has resolved. Reports sleeping more than she use too, but mom reports is better. Following with urology for Kidney Stones and following with Cardiology. Last Seizure: Since starting O2 she has had a significant drop in seizure frequency by about a third. Seizure Types: -Little ones occurs every other day reports she will stare with tonic activity will verbalize like a laugh, head to the left with tonic-clonic activity. -Large Ones reports not anything like they were. Reports last event was yesterday. Reports lessintense and duration has shortened since starting Lamictal but did require Valium but reports gave decreased dose of 2 mg. Current Anti-convulsants(Prior to any changes today): LTG 200 mg BID, LVT 1000 BID (did not tolerate titration to 1500 mg bid with reports of somnolence). Valium 2-6mg PRN Prior Anti-convulsants (Tried in Bold): BRV, CBZ, Clobazam, Clonazepam, Aptiom, Ethosuximide, GBP, LCM, LTG, LVT, OXC, Fycompa, PHB, PHT, Prim, PGB, RUF, VPA, TGB, TPM, Vigabtrin, ZNG Other History Recap: Claudine was adopted at age 10. 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 Febrile seizures Unknown. Prior workup: MRI- was completed but report was not available today EEG- From [facility] 1999 Álvaro, Generalized, Maximum bifrontal, 2001 Intermittent Rhythmic Slow, Generalized and regional Left Occipital EEG 2016- mild to moderate diffuse encephalopathy that is nonspecific. 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 Dysphagia DYSPHAGIA Gastroesophageal reflux disease with esophagitis GASTRO-ESOPHAGEAL REFLUX DISEASE WITH ESOPHAGITIS S/P percutaneous endoscopic gastrostomy (PEG) tube placement (HCC) H/O: GASTROSTOMY Intractable symptomatic generalized epilepsy (HCC) SYMPTOMATIC GENERALIZED EPILEPSY Muscle spasticity SPASTICITY 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HCC) SPASTIC CEREBRAL PALSY Torticollis TORTICOLLIS Pneumonia due to infectious organism INFECTIVE PNEUMONIA Spasticity SPASTICITY Febrile illness, acute FEVER Encephalopathy DISORDER OF BRAIN Hypoxia HYPOXIA Restrictive lung disease due to kyphoscoliosis RESTRICTIVE LUNG DISEASE DUE TO KYPHOSCOLIOSIS Aspiration, chronic pulmonary PULMONARY ASPIRATION Home Medications: Current Outpatient Prescriptions Medication Sig Dispense Refill acetaminophen (TYLENOL) 325 MG tablet 650 mg by G-tube route every 6 (six) hours as needed for pain. cholecalciferol, vitamin D3, (VITAMIN D3) 2,000 unit cap 2,000 Units by G-tube route every morning. diazePAM (VALIUM) 2 MG tablet Take 3 (three) tablets (6 mg total) by mouth daily as needed (Seizureactivity). 30 tablet 5 fluticasone (FLONASE) 50 mcg/actuation nasal spray 2 sprays into each nostril daily as needed for rhinitis. guaiFENesin (ROBITUSSIN) 100 mg/5 mL syrup 200 mg by G-tube route 3 (three) times a day as needed for cough . ipratropium (ATROVENT) 0.02 % nebulizer solution Do one breathing treatment twice daily. If she is congested or wheezing or labored, she can do this 4 times daily.. 300 mL 12 lamoTRIgine (LAMICTAL) 200 MG tablet Take 1 (one) tablet (200 mg total) by mouth 2 (two) times a day. 60 tablet 11 lamoTRIgine (LAMICTAL) 25 MG tablet Take 1 (one) tablet (25 mg total) by mouth nightly For 1 week then increase to 25 mg twice a day. Take with the Lamictal 200 mg tablets.. 60 tablet 5 levETIRAcetam (KEPPRA) 100 mg/mL solution Take 15 mL (1,500 mg total) by mouth 2 (two) times a day.(Patient taking differently: Take 1,000 mg by mouth 2 (two) times a day .) 946 mL 11 loratadine (CLARITIN) 10 mg tablet 10 mg by G-tube route every morning . medroxyPROGESTERone (DEPO-PROVERA) 150 mg/mL injection Inject 150 mg into the shoulder, thigh, or buttocks every 3 (three) months. multivitamin (THERAGRAN) per tablet 1 tablet by G-tube route every morning. omeprazole (PRILOSEC) 20 MG capsule 20 mg by G-tube route every morning . polyethylene glycol (MIRALAX) 17 gram powder Take 17 g by mouth every morning . promethazine (PHENERGAN) 12.5 MG suppository Insert 12.5 mg into the rectum every 6 (six) hours as needed for nausea. No current facility-administered medications for this visit. Tobacco use: reports that she has never smoked. She has never used smokeless tobacco. Review of Systems: Review of Systems Unable to perform ROS: other Constitution: Profound MRDD Physical Examination: Vitals: 04/26/17 1343 BP: 108/77 Pulse: 99 Eyes are clear. Oral mucosa is moist. Extremities are without deformity. Skin noted RUE rash, mom reports secondary to Levaquin side effect. Neurological Examination: Not alert, nonverbal, moaning, appears uncomfortable. Does not open eyes to tactile stimuli. With manual eye opening does not track Cranial Nerves II-XII limited secondary to profound MRDD, EOM moves spontaneous with manual eye opening, appeared conjuate, no notable facial weakness BUE and BLE contractures with increased tone, spontaneous movement of arms noted, no movement of legs. Sensation did not withdraw to touch Wheelchair bound Additional Diagnostic data reviewed: Past medical records. Assessment and Plan: SNOMED CT(R) 1. 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HCC) SPASTIC CEREBRAL PALSY 2. Intractable symptomatic generalized epilepsy (HCC) SYMPTOMATIC GENERALIZED EPILEPSY 3. Hypoxia HYPOXIA This is a 26 y.o. female with: 1. Intractable symptomatic generalized epilepsy - Intractable seizures despite multiple AEDs but improvement with frequency, intensity, duration and severity with increased Lamictal dose. - Increased Lamictal to 225 mg at night for 1 week, if tolerates and no rash to increase morning dose to 225 mg. Provided scripts. - Continued Keppra. - Continued Valium prn. Provided scripts. - Will consider labs CBC, CMP, Lamictal level at next office visit. - Possible consider VNS discussion at next office visit. - Does not drive. - Follow up in 6 weeks. 2. Spastic cerebral palsy - Static. - Baclofen pump. - [facility]. 3. Hypoxia - Continue O2 and bipap for acute hypercapnia - Increasing Lamictal in hopes to decrease seizure frequency and intensity, therefore decreasing chances for hypoxia. - Follows with [facility]. Thanks once again for involving our practice in [facility]'s care. As always, it is a pleasure to participate in the care of your patients, and we remain available to any of your patients who would benefit from timely neurological evaluation. Sincerely, Yany Wright, [employer], DIRECTOR OF GLOBAL SALES Epilepsy Clinic, Epilepsy Monitoring Unit [facility] in this encounter* Amaris Dunne RN - 03/10/2019 12:01 PM EDT PA for Epidiolex APPROVED until 08/26/2019. [facility]. documented in this encounter* Wilder Noland MD - 05/09/2019 10:58 AM EDT OFFICE CONSULT Patient Name: Claudine Joseph MR #: [id number] : 1990 Referring Physician: Marielle Duque* Physicians: Colette Goode MD (Family); Assessment and Plan: This is a difficult problem of a left ischial ulcer of about a year's duration in a lady with very poor mobility. I think the 1st order of business is to image her pelvis. I have ordered x-rays of her pelvis and hips as well as a white blood cell scan and bone scan to exclude underlying osteomyelitis. She is to return back following this radiographic evaluation. Chief Complaint/Reason for Visit: Right ischial decubitus ulcer History of Present Illness: Ms. Joseph is an unfortunate 29-year-old female with cerebral palsy. She had an anoxic brain injury at . She developed multiple problems over her life, including dysphasia, mental retardation, epilepsy, and recurrent episodes of pneumonia. About a year ago, she developed a right ischial decubitus pressure ulcer. X-rays were obtained at that juncture, according to her caregiver. There was nounderlying bone osteo. They have been treating it conservatively with silver packing dressing changes on a b.i.d. basis without improvement. I have been asked to see her in this regard. History: Past Medical History: Diagnosis Date Acute respiratory failure (HCC) Due to MRSA pneumonia 04/2016; Allergic rhinitis Anoxic brain damage (HCC) Aspiration, chronic pulmonary Bowel and bladder incontinence Cerebral palsy (HCC) Chronic respiratory failure with hypoxia (HCC) Constipation GERD (gastroesophageal reflux disease) occasional vomiting with gagging MRSA (methicillin resistant Staphylococcus aureus) 04/2016 Bilateral lungs Nonverbal Answers yes with very long blinks per adoptive parent Postoperative retention of urine occasional occurrence that requires straight cath periodically Restrictive lung disease due to kyphoscoliosis Seizures (HCC) Daily occurrence-Neuro- adoptive mother can't remember name of urologist Past Surgical History: Procedure Laterality Date BACK SURGERY 1999 Marrufo rods placed BACLOFEN PUMP IMPLANTATION X 3- last 2009 CHOLECYSTECTOMY INCISION AND DRAINAGE LOWER EXTREMITY Right 12/02/2018 Procedure: INCISION AND DRAINAGE WITH BONE BIOPSY OF RIGHT ISCHIUM; Surgeon: Rad Luque MD; Location: [facility] Main OR; Service: Orthopedic LAMINECTOMY DECOMP THORACIC MULTI LEVEL N/A 07/27/2016 Procedure: T1-2 THORACIC FUSION REVISION ; Surgeon: Kb aRmsey MD; Location: [facility] Main OR; Service: PEG TUBE INSERTION REVISION PAIN PUMP N/A 07/27/2016 Procedure: BACLOFEN PUMP REPLACEMENT ; Surgeon: Kb Ramsey MD; Location: [facility] Main OR; Service: SALIVARY GLAND SURGERY Family History Adopted: Yes Family history unknown: Yes Social History Socioeconomic History Marital status: Single Spouse name: Not on file Number of children: Not on file Years of education: Not on file Highest education level: Not on file Occupational History Not on file Social Needs Financial resource strain: Not on file Food insecurity: Worry: Not on file Inability: Not on file Transportation needs: Medical: Not on file Non-medical: Not on file Tobacco Use Smoking status: Never Smoker Smokeless tobacco: Never Used Substance and Sexual Activity Alcohol use: No Drug use: No Sexual activity: Not on file Lifestyle Physical activity: Days per week: Not on file Minutes per session: Not on file Stress: Not on file Relationships Social connections: Talks on phone: Not on file Gets together: Not on file Attends protestant service: Not on file Active member of club or organization: Not on file Attends meetings of clubs or organizations: Not on file Relationship status: Not on file Other Topics Concern Not on file Social History Narrative Not on file Allergy Information: I have reviewed the patient's allergies. Levaquin [levofloxacin]; Augmentin [amoxicillin-pot clavulanate]; Lactose intolerance [lactase]; Penicillins; and Ragweed Home Medications: Claudine Joseph Home Medication Instructions Prior to Surgery SADIE: Printed on:05/09/19 6857 Medication Information Take last dose on Take the morning of surgery Comment(s) acetaminophen (TYLENOL) 325 MG tablet 650 mg by G-tube route every 6 (six) hours as needed for pain . baclofen (LIORESAL) 20 MG tablet Take 1 tablet as needed for baclofen withdrawal. baclofen 40,000 mcg/20mL (2,000 mcg/mL) Syrg 649 mcg by Intrathecal route daily . catheter (SAGE CATHETER) 14 Fr Misc by Miscellaneous route . cholecalciferol, vitamin D3, (VITAMIN D3) 2,000 unit cap 2,000 Units by G-tube route every morning. ciprofloxacin HCl (CIPRO) 100 MG tablet Take 500 mg by mouth 2 (two) times a day . diazePAM (VALIUM) 2 MG tablet Take 3 tablets by mouth once daily as needed for seizure activity . fluticasone (FLONASE) 50 mcg/actuation nasal spray 2 sprays into each nostril daily as needed for rhinitis. guaiFENesin (ROBITUSSIN) 100 mg/5 mL syrup 200 mg by G-tube route 3 (three) times a day as needed for cough . ipratropium (ATROVENT) 0.02 % nebulizer solution Do one breathing treatment twice daily. If she is congested or wheezing or labored, she can do this4 times daily.. lamoTRIgine (LAMICTAL) 100 MG tablet Take 1 (one) tablet (100 mg total) by mouth 2 (two) times a day . lamoTRIgine (LAMICTAL) 150 MG tablet Take 1 (one) tablet (150 mg total) by mouth 2 (two) times a day Take with the Lamictal 100 mg tablets bid for a total of 250 mg bid. . levETIRAcetam (KEPPRA) 100 mg/mL solution Take 10 mL (1,000 mg total) by mouth 2 (two) times a day . lidocaine-prilocaine (EMLA) cream Apply topically as needed . loratadine (CLARITIN) 10 mg tablet 10 mg by G-tube route every morning . medroxyPROGESTERone (DEPO-PROVERA) 150 mg/mL injection Inject 150 mg into the shoulder, thigh, or buttocks every 3 (three) months. meropenem-0.9% sodium chloride (MERREM) 500 mg/50 mL Infuse 1 g into a venous catheter every 8 (eight) hours . metoprolol succinate (TOPROL-XL) 25 MG 24 hr tablet Take 12.5 mg by mouth daily. morphine concentrated solution 20 mg/mL Give 0.25 mL (5 mg total) by G-tube route 2 (two) times a day as needed for pain. multivitamin (THERAGRAN) per tablet 1 tablet by G-tube route every morning. omeprazole (PRILOSEC) 20 MG capsule 20 mg by G-tube route every morning . polyethylene glycol (MIRALAX) 17 gram powder Take 17 g by mouth every morning . promethazine (PHENERGAN) 12.5 MG suppository Insert 12.5 mg into the rectum every 6 (six) hours as needed for nausea. Review of Systems: Review of Systems Constitutional: Negative for activity change, appetite change, chills, diaphoresis, fatigue, fever and unexpected weight change. HENT: Negative for congestion, dental problem, drooling, ear discharge, ear pain, facial swelling, hearing loss, mouth sores, nosebleeds, postnasal drip, rhinorrhea, sinus pressure, sneezing, sore throat, tinnitus, trouble swallowing and voice change. Eyes: Negative for photophobia, pain, discharge, redness, itching and visual disturbance. Respiratory: Negative for apnea, cough, choking, chest tightness, shortness of breath, wheezing andstridor. Recurrent episodes of infection of chest Cardiovascular: Negative for chest pain, palpitations and leg swelling. Gastrointestinal: Negative for abdominal distention, abdominal pain, anal bleeding, blood in stool,constipation, diarrhea, nausea and rectal pain. GERD, dysphadia Endocrine: Negative for cold intolerance, heat intolerance, polydipsia, polyphagia and polyuria. Genitourinary: Negative for decreased urine volume, difficulty urinating, dysuria, enuresis, flank pain, frequency, genital sores, hematuria and urgency. Musculoskeletal: Positive for arthralgias, back pain, gait problem, joint swelling and myalgias. Negative for neck pain and neck stiffness. Skin: Negative for color change, pallor and rash. Allergic/Immunologic: Negative for environmental allergies, food allergies and immunocompromised state. Neurological: Positive for seizures and weakness. Negative for dizziness, tremors, syncope, facial asymmetry, speech difficulty, light-headedness, numbness and headaches. Hematological: Negative for adenopathy. Does not bruise/bleed easily. Psychiatric/Behavioral: Negative for agitation, behavioral problems, confusion, decreased concentration, dysphoric mood, hallucinations and self-injury. The patient is not nervous/anxious and is not hyperactive. Physical Examination: Vital Signs: BP (!) 85/62 Pulse (!) 106 Ht 4' 5 Wt 41.7 kg (92 lb) BMI 23.03 kg/m Physical Exam Constitutional: She appears well-developed and well-nourished. HENT: Head: Normocephalic. Right Ear: External ear normal. Left Ear: External ear normal. Nose: Nose normal. Mouth/Throat: Oropharynx is clear and moist. Eyes: Pupils are equal, round, and reactive to light. EOM are normal. Left eye exhibits no discharge. No scleral icterus. Neck: Normal range of motion. Neck supple. No JVD present. No tracheal deviation present. No thyromegaly present. Cardiovascular: Normal rate, regular rhythm, normal heart sounds and intact distal pulses. Exam reveals no gallop and no friction rub. No murmur heard. Pulmonary/Chest: No respiratory distress. She has no wheezes. She has no rales. She exhibits no tenderness. Abdominal: She exhibits no distension and no mass. There is no tenderness. There is no rebound and no guarding. Musculoskeletal: General: No tenderness, deformity or edema. Legs: Lymphadenopathy: She has no cervical adenopathy. Neurological: She displays normal reflexes. No cranial nerve deficit. She exhibits normal muscle tone. Coordination normal. Skin: No rash noted. No erythema. No pallor. Psychiatric: She has a normal mood and affect. Her behavior is normal. Judgment and thought contentnormal. documented in this encounter* Ruma Godwin, DIRECTOR OF GLOBAL SALES - 06/28/2019 8:26 PM EDT [facility] Clinic: Intrathecal Baclofen Therapy Progress Note 06/29/2019 CHIEF COMPLAINT Spasticity follow up from 03/09/19 IMPRESSIONS AT LAST VISIT / INTERM HISTORY Medically refractory, severe spasticity secondary to Spasticity Etiology: CP managed with intrathecal baclofen therapy. Based on today s history, physical examination and review of ITB telemetry, I feel her severe spasticity is active and negatively impact QoL / ADLs / vocation. Current ITB goals include: decrease cramps and spasms, spasticity related pains, loosen thelegs, loosen the arms, help prevent contractures and bed sores, improve caregiver ease of care Other associated diagnoses / active problems for this visit include: weakness, spasticity, requireswheelchair / scooter for mobility, seizures. Total Daily Dose: 649.8 mcg/day. Programming Adjustments today: None; refill only. CONTEMOPORARY HISTORY Claudine presents to clinic with her caregiver for her ITB pump refill. Claudine's Mom Peg just had hysterectomy and is home recovering. Caregiver reports seizures are rare. Still has open area on right gluteal fold, they are packing, states is improving. OTHER RELEVANT HISTORY [facility] ROS No documentation. She has a past medical history of Acute respiratory failure ([facility]), Allergic rhinitis, Anoxic brain damage ([facility]), Aspiration, chronic pulmonary, Bowel and bladder incontinence, Cerebral palsy ([facility]), Chronic respiratory failure with hypoxia ([facility]), Constipation, GERD (gastroesophageal reflux disease),MRSA (methicillin resistant Staphylococcus aureus) (04/2016), Nonverbal, Postoperative retention ofurine, Restrictive lung disease due to kyphoscoliosis, and Seizures ([facility]). She has a past surgical history that includes Peg Tube Insertion; Baclofen pump implantation; Salivary gland surgery; Back surgery (1999); Cholecystectomy; Pain Pump Revision (N/A, 07/27/2016); Laminectomy Decomp Thoracic Multi Level (N/A, 07/27/2016); and Incision And Drainage Lower Extremity (Right, 12/02/2018). She reports that she has never smoked. She has never used smokeless tobacco. She reports that she does not drink alcohol or use drugs. Social History Patient does not qualify to have social determinant information on file (likely too young). Social History Narrative Not on file She She was adopted. Family history is unknown by patient. Allergies Allergen Reactions Levaquin [Levofloxacin] Rash, flushing with RUE arm swelling. Augmentin [Amoxicillin-Pot Clavulanate] Rash Lactose Intolerance [Lactase] Penicillins Other (See Comments) Blisters Ragweed Unknown She has a current medication list which includes the following prescription(s): acetaminophen, baclofen, cannabidiol (cbd) extract, catheter, cholecalciferol (vitamin d3), ciprofloxacin hcl, diazepam, fluticasone propionate, guaifenesin, lamotrigine, lamotrigine, levetiracetam, lidocaine-prilocaine, loratadine, medroxyprogesterone, meropenem-0.9% sodium chloride, metoprolol succinate, morphine, multivitamin, omeprazole, polyethylene glycol, promethazine, baclofen, and ipratropium. PHYSICAL EXAMINATION Vital Signs: Height 4' 5, weight 41.7 kg (92 lb). General Appearance: in no apparent distress Eyes: Anicteric sclerae. Moist conjunctivae. No lid edema noted. HENT: Head atraumatic, normocephalic. Oropharynx clear. Moist mucous membranes. Neck/ Thyroid:trachea midline. Supple. No massess. No thyromegaly. Lungs: Normal respiratory effort. No intercostal retractions. No dyspnea during conversation. Abdomen: soft, non-distended Extremities: no clubbing, cyanosis, pedal edema, ulcer nor wound noted. Skin: warm, dry, no rash, no ecchymoses, no petechiae noted Pysch: Non-verbal NEUROLOGICAL EXAMINATION Mental Status is awake, non-verbal, tracking examiner. Modified Estefani Score: EE EF Hip add KE KF DF PF Right 2 1 0 0 Left 1 0 0 0 Wheelchair bound ITB TELEMETRY and OTHER DATA I have independently reviewed the ITB pump system telemetry. ASSESSMENT Claudine Joseph is a 29 y/o female with medically refractory, severe spasticity secondaryto CP managed with intrathecal baclofen therapy. Based on today s history, physical examination andreview of ITB telemetry, I feel her severe spasticity is active and negatively impact QoL / ADLs / vocation. Current ITB goals include: decrease cramps and spasms, spasticity related pains, loosen thelegs, loosen the arms, improve options for seating and positioning, help prevent contractures and bed sores, improve caregiver ease of care Other associated diagnoses / active problems for this visit include: weakness, spasticity, requireswheelchair / scooter for mobility, decubitus ulcer INTRATHECAL BACLOFEN SYSTEM INFORMATION FOR Claudine Joseph Severe Spasticity due to: CP Implanted: [address] Roxy RENE date: 46 (March 2023) Synchromed I IPump Size: 40 mL Willard Location: 11 oclock Catheter Tip Placement: PLAN REGARDING INTRATHECAL BACLOFEN THERAPY First Medication Brand: LIORESAL Concentration: 2000 mcg/mL Total Daily Dose: 649.8 mcg/day 1. Pump Programming: Simple Continuous 2. Pump Esto Refill: The injection site was prepped sterilely, landmarks were identified, and the pump was accessed with a coring needle. Approximately 5 (calculated 3.7) cc of clear, colorless fluid was removed from the reservoir. The reservoir was then refilled with 40 ml of 2000mcg/ml baclofen for intrathecal administration. No difficulties were noted, and the pressure was within acceptable limits. kit # 8566: concentration 2000 mcg/ml, volume 40 ml was used. 3. Programming Adjustments today: None; refill only 4. ITB system Procedures today: pump computer interrogation, pump computer reprogramming and pump reservoir refill 5. Last reservoir refill date: 06/29/19 6. Pump Low Esto Alarm Date: 07/03/19 7. Claudine Joseph and/or her caregivers have verbal consents to all of the ITB system adjustments and procedures performed today PLAN REGARDING ADJUNCTIVE SPASTICITY THERAPIES 1. Noxious stimulation worsens spasticity. This included when the weather is cold outside, urinary tract infections and other infections, pressure sores, poor seating or sleeping ergonomics, constipation and urinary retention. she is encouraged to report any of these symptoms. 2. We recommend practicing good spasticity hygiene: A. Stretch upon waking, partway through the day, and before bed every day B. Stay adequately hydrated C. Treat constipation, urinary retention, bladder infections D. Check dependant areas of the body every day for redness / skin breakdown E. Exercise! Movement is camejo. Try yoga, magan chi, or water aerobics. D. Stop to stretch during long periods of sitting (long car ride, business meeting) F. Don't get too cool. Cold often worsens spasticity. PLAN REGARDING FOLLOW UP 1. We will schedule follow up a week before her alarm date, which is 10/23/19. 2. I strongly recommend that she keep an up-to-date emergency bottle of oral baclofen with her atall times to take for withdrawal symptoms. 3. I also recommend that she keep her [employer] identification card with our clinic contact information at all times. 4. Dr. Ngo can be reached for emergencies and after hours by calling the [facility] at . PATIENT AND CARE PROVIDER EDUCATION You can learn more about spasticity and ITB therapy at the following website: [email or web address].com If you have a smart phone then we recommend you download the free pump partner application as well. It is a resource for ITB education and tracking your personalized therapy. SYNCHROMED II ITB SYSTEM The intrathecal baclofen pump system is the way our treatment team gives baclofen directly into thespinal fluid. The system consists of a catheter (a small, flexible tube) and a pump. The pump -- a round metal disc, about one inch thick and three inches in diameter -- is surgically placed under the skin of the abdomen near the waistline. The pump stores and releases prescribed amounts of medicine through the cathete directly to the spinal fluid. With a programmable pump, a tiny motor moves themedication from the pump reservoir through the catheter. Using an external it programmer analyst, your treatment team can make adjustments in the dose, rate, and timing of the medication. Continuously delivers baclofen in small doses directly to the spinal fluid, increasing the therapeutic benefits and causing fewer and less severe side effects than the oral medication. Patients with a pump must return to their doctor's office for pump refills and medication adjustments, typically every 1-3 months. ITB SYSTEM MAINTENANCE AND REPAIR The catheter may kink, break or dislodge in up to 10% of cases and would require a surgery to revise it. The Synchromed II pump requires replacement for end of battery life within 7 years. This will require a surgery. The catheter is not required to be replaced, just the pump. INTRATHECAL BACLOFEN WITHDRAWAL Signs and symptoms of baclofen withdrawal often include diffuse body itching, increased stiffness and fever. I have reminded her to take 20mg of oral baclofen and contact our office if she has these symptoms. she may need to be seen in the emergency department. The baclofen withdrawal syndrome can progress to include confusion, sedation and even coma. In severe cases baclofen withdrawal can lead to kidney damage, seizures and possibly . A lumbar puncture with an injection of 50mcg intrathecal baclofen in the emergency department is often the best treatment to address severe balcofen withdrawal symptoms. INTRATHECAL BACLOFEN OVERDOSE Signs and symptoms of baclofen overdose often include sedation and confusion and most commonly occur recently following an ITB refill/program adjustment. I recommend Claudine Joseph contact our office prompts if these symptoms occur. The baclofen overdose syndrome can progress to include coma, seizures, respiratory and cardiac depression and possibly . I have reminded her to contact our office and go to the emergency room if she experiences these symptoms. A high volume lumbar puncture (removing 40cc of both CSF and intrathecal baclofen) in the emergency department is often the best treatment for severe baclofen overdose symptoms. ITB SYSTEM INFECTION Infection of the pump system can lead to meningitis (severe brain infection) and can be possibly fatal. Signs and symptoms of pump infection can include redness, swelling, or pain around the pump or surgical scar on the back. Fever and a stiff neck are also common. I recommend that Claudine Joseph go to the Emergency Department if she has any of signs/symptoms of pump infection. MRI SCANNING Synchromed II ITB pumps are MRI compatible including 3T strength scanners. The pump stops pumping temporarily when the patient is moved near the MRI machine. The pump automatically restarts once the patient moves away from the MRI machine. We follow a clinic best practice of interrogating the pump following MRI scans to ensure the ITB pump has restarted. This can often be arranged to be done by [employer] if scheduled during business hours. We recommend AGAINST any MRI scans scheduled outside of business hours. EDUCATION: HOT TUBs, STEAM ROOMS, SAUNAS AND TANNING BED We recommend patients avoid these, especially if over 102 degrees. Heating up your body causes the ITB pump to potential increase its flow rate, which could cause overdose/. EDUCATION: SCUBA DIVING We recommend that an ITB patient avoid depths below 33 feet (10 meters). Diving lower than this could permanently damage the pump. Also as you descend and the pressure around your body increases, pump flow can decrease. This could lead to baclofen withdrawal/. EDUCATION REGARDING DAYLIGHT SAVINGS TIME The clock inside the pump does not adjust for daylight savings time changes (spring forward and fall backwards). If you are on flex dosing or bolus dosing programming then your dosing will becomeshifted an hour, which may cause problems for the patient. The pump clock only corrects for daylight savings time after being interrogated by a it programmer analyst. The flex/bolus dosing patient should schedule a visit after a time change to reset their pump clocks. I spent 30 minutes face to face with the patient today. Over half the time was spent counseling regarding her spasticity as well as it's underlying medical condition, as well as her coordinating care.Thank you very much for allowing me to participate in this patient's care and please do not hesitate to contact me with questions or concerns. Sincerely, Ruma Godwin MS, BSN, ACNP-BC, CNRN Acute Care Nurse Practitioner [facility] [place] [id number] [facility] [place], [address] [place] [address] [email or web address] [phone] documented in this encounter* Zamzam Swartz MSW LSW - 09/27/2019 9:53 AM EST COMPLEX DISCHARGE Date: 09/27/2019 Time: 9:53 AM Patient Name: Claudine Joseph Date of : 1990 Sex: Female Home Health orders placed. D/c paperwork faxed to home health agency and [facility]. . Discharge Planning Living Arrangements: Parent Support Systems: Parent Assistance Needed: yes Type of Residence: Private residence Prior to Admission Home Care Services: Yes Type of Current Home Care Services: Home health care, Other (Comment)(Infusion Pharmacy) Does the patient need discharge transport arranged?: No Current Agency Name: (primary care) Current Home Equipment: Oxygen, Nebulizer, Hospital bed, Wheel chair Anticipated HME: None Anticipated Home Care Needs: Home health care Anticipated Facility Type: Home care, Home infusion Anticipated Discharge Plan Anticipated HME: None Anticipated Home Care Needs: Home health care Anticipated Facility Type: Home care, Home infusion Potential for Readmission Potential for Readmission: No Discharge Readiness Expected Discharge Date: 09/27/19 [facility] Disposition D/C Disposition: Home Health Care Services Related to Current Admission?: No Agency/Destination: Other(Primary Care HH) Home Care Needs : Home health care, Infusion Pharmacy, Oxygen Infusion Agency: [facility] HME: None Same As Recommended : yes Transportation Type: Auto Reason for Choice: Currently with agency * Rashid Mejia MD - 09/26/2019 4:04 PM EST Rashid Mejia MD [facility] Hospitalists DAILY PROGRESS NOTE Patient Name: Claudine Joseph PCP: Colette Goode MD Perpetual Assessment: Claudine Joseph is a 29 y.o. female with spastic Cerebral Palsy, Chronic dysphagia on tube feeds, Chronic Resp failure on 4-6L O2 at baseline, restrictive lung disease who presented from home on 09/19/2019 with cough, increasing O2 requirements and fever. She was admitted for severe sepsis and transferred to ICU on 09/20 am due to worsening resp status. She is transferred out of ICU09/22. Lives withher adoptive mother who provides all her care at home. Assessment and Plan Severe Sepsis due to pneumonia and aspiration and UTI -Source of sepsis is UTI and pneumonia -Strep and legionella Ag negative, Flu negative, MRSA probe negative -Blood cultures negative -Sputum with E.cloacae and Pseudomonas -Urine culture with Pseudomonas and Enterococcus -ICU care 09/20 to 09/22. -Continue vancomycin and Cefepime for 7 day course with last dose 09/27. -Home 09/27 after ATB done. Complicated UTI with indwelling sage present on admit - Sage catheter changed 09/21 - Urine culture noted-mixed fang - Continue antibiotics as above Acute on Chronic respiratory failure -Secondary to Pneumonia and aspiration -Baseline restrictive disease due to Scoliosis -Baseline O2 requirment 4-6L, now back to baseline -Continue O2 by NC -Goal O2 sat 88-92% -Continue Xopenex and prednisone for 5 days. Spastic Cerebral palsy -Non-verbal, restricted to wheelchair at baseline follows at [facility] neuro clinic. -Has Baclofen pump in place -Continue tube feeds by PEG. She has chronic aspiration and is NPO penitentiary. Seizure disorder - Refractory seizures and on complex regimen followed at [facility] neuro clinic. 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 Code Status: FULL code DVT Prophylaxis Lovenox Disposition and Comments Mother provides all care at home and adopted Claudine at age 10. Mother has worked with HHC in past and would like pt to go home with PICC and HHC to complete her Vanco and Maxipime if possible. Referral to [facility] [employer] THE[employer]. I explained to mother that unlikely to be able to arrange all this on a weekend and pt only due to have IV ATB until 09/27 therefore unlikely that PICC advisable. She is now ok with remaining at [facility] until ATB done 09/27. CC / Reason for follow up: Sepsis SUBJECTIVE: No events overnight. Patient in no distress, poor historian (nonverbal) ROS: < >> The following system(s) were reviewed. Pertinent positive and negative findings are noted in the HPI. Unable to obtain due to nonverbal status. [] Const [] Eyes [] ENT [] Resp [] CV [] GI [] [] Neuro [] Musc [] Skin [] Psych [] Endo [] Allergy [] Heme/Lymph PHYSICAL EXAMINATION: << >>>>> Temp: [98.5 F (36.9 C)-98.7 F (37.1 C)] 98.7 F (37.1 C) Heart Rate: [83-120] 109 Resp: [17-25] 23 BP: (101-103)/(69-76) 101/69 GENERAL: Non-verbal, sleeping but rousable EYES: Conjunctiva and sclera clear. ENT: Hearing intact. CV: Reg, no murmur. No edema. RESP: Clear, no rales, rhonchi, wheezes. No increase in respiratory effort. On 3L NC GI: Non-distended, +BS, soft, non-tender. Tube in situ on Right mid quadrant, dressing clean and dry SKIN: Warm and dry. No rashes. NEURO: Asleep but rousable, non-verbal, does not follow commands, chronic spasticity of all extremities. PSYCH: Cooperative. I/O s last 3 shifts: I/O last 3 completed shifts: In: 3164.4 [I.V.:40.6; NG/GT:1458; IV Piggyback:250.8] Out: 3950 [Urine:3950] Reviewed 09/26/19 4:04 PM: [x] Laboratory [x] Transcriptions [x] Radiology [x] Microbiology [] Cardiology [] Outside Records [x] Medications [x] Family Time Spent/CCM Time: over 25 min * Rashid Mejia MD - 09/25/2019 4:58 PM EST Rashid Mejia MD [facility] Hospitalists DAILY PROGRESS NOTE Patient Name: Claudine Joseph PCP: Colette Goode MD Perpetual Assessment: Claudine Joseph is a 29 y.o. female with spastic Cerebral Palsy, Chronic dysphagia on tube feeds, Chronic Resp failure on 4-6L O2 at baseline, restrictive lung disease who presented from home on 09/19/2019 with cough, increasing O2 requirements and fever. She was admitted for severe sepsis and transferred to ICU on 09/20 am due to worsening resp status. She is transferred out of ICU09/22. Lives withher adoptive mother who provides all her care at home. Assessment and Plan Severe Sepsis due to pneumonia and aspiration and UTI -Source of sepsis is UTI and pneumonia -Strep and legionella Ag negative, Flu negative, MRSA probe negative -Blood cultures negative -Sputum with E.cloacae and Pseudomonas -Urine culture with Pseudomonas and Enterococcus -ICU care 09/20 to 09/22. -Continue vancomycin and Cefepime for 7 day course with last dose 09/27. -Home 09/27 or 09/28 after ATB done. Complicated UTI with indwelling sage present on admit - Sage cathter changed 09/21 - Urine culture noted-mixd fang - Continue antibiotics as above Acute on Chronic respiratory failure -Secondary to Pneumonia and aspiration -Baseline restrictive disease due to Scoliosis -Baseline O2 requirment 4-6L, now back to baseline -Continue O2 by NC -Goal O2 sat 88-92% -Continue Xopenex and prednisone for 5 days. Spastic Cerebral palsy -Non-verbal, restricted to wheelchair at baseline follows at [facility] neuro clinic. -Has Baclofen pump in place -Continue tube feeds by PEG. She has chronic aspiration and is NPO penitentiary. Seizure disorder - Refractory seizures and on complex regimen followed at [facility] neuro clinic. 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 Code Status: FULL code DVT Prophylaxis Lovenox Disposition and Comments Mother provides all care at home and adopted Claudine at age 10. Mother has worked with HHC in past and would like pt to go home with PICC and HHC to complete her Vanco and Maxipime if possible. Referral to [facility] THE[facility]. I explained to mother that unlikely to be able to arrange all this on a weekend and pt only due to have IV ATB until 09/27 therefore unlikely that PICC advisable. She is now ok with remaining at [facility] until ATB done 1/29. CC / Reason for follow up: Sepsis SUBJECTIVE: No events overnight. Patient in no distress, poor historian (nonverbal) ROS: < >> The following system(s) were reviewed. Pertinent positive and negative findings are noted in the HPI. Unable to obtain due to nonverbal status. [] Const [] Eyes [] ENT [] Resp [] CV [] GI [] [] Neuro [] Musc [] Skin [] Psych [] Endo [] Allergy [] Heme/Lymph PHYSICAL EXAMINATION: << >>>>> Temp: [98.1 F (36.7 C)-98.9 F (37.2 C)] 98.8 F (37.1 C) Heart Rate: [85-120] 120 Resp: [16-26] 22 BP: (102-118)/(68-81) 117/71 GENERAL: Non-verbal, sleeping but rousable EYES: Conjunctiva and sclera clear. ENT: Hearing intact. CV: Reg, no murmur. No edema. RESP: Clear, no rales, rhonchi, wheezes. No increase in respiratory effort. On 3L NC GI: Non-distended, +BS, soft, non-tender. Tube in situ on Right mid quadrant, dressing clean and dry SKIN: Warm and dry. No rashes. NEURO: Asleep but rousable, non-verbal, does not follow commands, chronic spasticity of all extremities. PSYCH: Cooperative. I/O s last 3 shifts: I/O last 3 completed shifts: In: 3701.6 [I.V.:30.6; NG/GT:1613; IV Piggyback:733] Out: 3600 [Urine:3600] Reviewed 09/25/19 4:58 PM: [x] Laboratory [x] Transcriptions [x] Radiology [x] Microbiology [] Cardiology [] Outside Records [x] Medications [x] Family Time Spent/CCM Time: over 25 min * Zamzam Swartz MSW LSW - 09/25/2019 11:32 AM EST DISCHARGE PLAN PROGRESS NOTE Date: 09/25/2019 Time: 11:32 AM Patient Name: Claudine Joseph Date of : 1990 Sex: Female [employer]OCIATE PROFESSOR OF THEOLOGY met with pt's mother at bedside who provided contact number for Primary [facility] ([phone]). ASSOCIATE PROFESSOR OF THEOLOGY called agency and confirmed pt gets RN services every day of the week. . AVSupdated. ASSOCIATE PROFESSOR OF THEOLOGY informed agency pt will most likely d/c on 09/27. ASSOCIATE PROFESSOR OF THEOLOGY will fax d/c paperwork and new orders on day of dc. Pt's mother reports she will transport pt upon d/c. ADDENDUM 2:42pm: ASSOCIATE PROFESSOR OF THEOLOGY called [facility] liaison and confirmed pt is current with them for tube feeds. They do not need new orders if tube feeds are remaining the same. Will fax d/c paperwork upon discharge([phone]). [facility] Disposition D/C Disposition: Home Health Care Services Related to Current Admission?: No Agency/Destination: Other(Primary Care ) Home Care Needs : Home health care, Infusion Pharmacy, Oxygen Infusion Agency: [facility] HME: None Same As Recommended : yes Transportation Type: Auto Reason for Choice: Currently with agency Anticipated Discharge Plan Anticipated HME: None Anticipated Home Care Needs: Home health care Anticipated Facility Type: Home care, Home infusion * Catalina Morales, RD - 09/25/2019 7:44 AM EST Nutrition Care Follow Up Monitoring and Evaluation: Pt received > 80% of prescribed tube feeding volume Nutrition Diagnosis: Swallowing difficulty related to neurologic injury as evidenced by NPO TF dependent at baseline. Not Resolved Nutrition Intervention: Continue Enteral Nutrition (TF orders clarified per RN request) Nutrition Prescription: Diet: NPO Tube Feeding: Replete via: Gtube @ 60 ml/ hour x 15 hours (8 am to 11 pm) Additional free water: 60 ml/ hour x 9 hours (from 11 pm to 8 am) Nutrition Goals: Pt will receive 80% of estimated tube feeding goal Start Date:09/25/2019 Expected End Date:09/29/2019 Nutrition Education: No needs at this time Nutrition plan discussed with: RN Assessment: Pertinent clinical information: Continues to tolerate TF (home regimen). Plans for d/c after ATB completed. Pt w/ increased/ frequent stools. Would likely benefit from adjusting scheduled bowel regimen. Height: 4' 5 Current weight: 43.3 kg (95 lb 7.4 oz) BMI Body mass index is 23.89 kg/m . Previous wt: 41.3 kg TF % Rx'd volume received: 100% 3 day average intake Current diet order: NPO Recent TF intake: meets estimated needs. Difficulty Chewing/Swallowing: Yes Skin Integrity: L buttock wound GI Function: LBM 09/24 x4 (orders for scheduled Senna and Miralax) Labs: Recent Labs 09/22/19 0752 09/24/19 1240 NA 142 -- K 3.0* 4.3 BICARB 30 -- CL 98 -- GLUCOSE 90 -- BUN 6* -- CREATININE 0.34* -- Scheduled Meds: cannabidioL 3.2 mL Tube BID cefePIMe (MAXIPIME) IVPB 1,000 mg Intravenous Q8H enoxaparin (LOVENOX) injection 40 mg Subcutaneous Daily lamoTRIgine 250 mg Tube BID levalbuterol 1.25 mg Nebulization TID levETIRAcetam 1,000 mg Tube BID loratadine 10 mg Oral QAM metoprolol succinate 12.5 mg Oral Daily pantoprazole 40 mg Tube Daily polyethylene glycol 17 g Tube QAM predniSONE 40 mg Tube Daily with breakfast senna-docusate 1 tablet Tube BID sodium chloride (PF) 5 mL Intravenous Q8H ISSAC Continuous Infusions: sodium chloride 0.9 % Stopped (09/22/19 5289) sodium chloride 0.9 % Stopped (09/25/19 4384) Estimated Energy Needs Total Energy Estimated Needs: [id number] Method for Estimating Needs: 22-25 kcal/kg current wt Total Protein Estimated Needs: 49-62 Method for Estimating Needs: 1.2-1.5 g/kg current wt Fluid Needs Total Fluid Estimated Needs: 1cc/kcal ~ Ctaalina Morales, MS, RD, LD * Janna Llanes DO - 09/24/2019 12:39 PM EST Janna Llanes DO [facility] Hospitalists DAILY PROGRESS NOTE Patient Name: Claudine Joseph PCP: Colette Goode MD Perpetual Assessment: Claudine Joseph is a 29 y.o. female with spastic Cerebral Palsy, Chronic dysphagia on tube feeds, Chronic Resp failure on 4-6L O2 at baseline, restrictive lung disease who presented from home on 09/19/2019 with cough, increasing O2 requirements and fever. She was admitted for severe sepsis and transferred to ICU on 09/20 am due to worsening resp status. She is transferred out of ICU09/22. Lives withher adoptive mother who provides all her care at home. Assessment and Plan Severe Sepsis due to pneumonia and aspiration and UTI -Source of sepsis is UTI and pneumonia -Strep and legionella Ag negative, Flu negative, MRSA probe negative -Blood cultures negative -Sputum with E.cloacae and Pseudomonas -Urine culture with Pseudomonas and Enterococcus -ICU care 09/20 to 09/22. -Continue vancomycin and Cefepime for 7 day course with last dose 09/27. -Home 09/27 or 09/28 after ATB done. Complicated UTI with indwelling sage present on admit - Sage cathter changed 09/21 - Urine culture noted-mixd fang - Continue antibiotics as above Acute on Chronic respiratory failure -Secondary to Pneumonia and aspiration -Baseline restrictive disease due to Scoliosis -Baseline O2 requirment 4-6L, now back to baseline -Continue O2 by NC -Goal O2 sat 88-92% -Continue Xopenex and prednisone for 5 days. Spastic Cerebral palsy -Non-verbal, restricted to wheelchair at baseline follows at [facility] neuro clinic. -Has Baclofen pump in place -Continue tube feeds by PEG. She has chronic aspiration and is NPO penitentiary. Seizure disorder - Refractory seizures and on complex regimen followed at [facility] neuro clinic. 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 Code Status: FULL code DVT Prophylaxis Lovenox Disposition and Comments Spoke to mother at the bedside 09/23 and 09/24. She provides all care at home and adopted Claudine at age 10. Mother has worked with HHC in past and would like pt to go home with PICC and HHC to complete her Vanco and Maxipime if possible. Referral to [facility] THE[facility]Y. I explained to mother that unlikely to be able to arrange all this on a weekend and pt only due to have IV ATB until 09/27 therefore unlikely thatPICC advisable. She is now ok with remaining at [facility] until ATB done 09/27. CC / Reason for follow up: Sepsis SUBJECTIVE: Seen and examined this am and mother at the bedside. ROS: < >> The following system(s) were reviewed. Pertinent positive and negative findings are noted in the HPI. Unable to obtain due to nonverbal status. [] Const [] Eyes [] ENT [] Resp [] CV [] GI [] [] Neuro [] Musc [] Skin [] Psych [] Endo [] Allergy [] Heme/Lymph PHYSICAL EXAMINATION: << >>>>> Temp: [98.5 F (36.9 C)-99.4 F (37.4 C)] 98.5 F (36.9 C) Heart Rate: [69-106] 100 Resp: [14-39] 20 BP: (99-113)/(61-81) 113/69 GENERAL: Non-verbal, sleeping but rousable EYES: Conjunctiva and sclera clear. ENT: Hearing intact. CV: Reg, no murmur. No edema. RESP: Clear, no rales, rhonchi, wheezes. No increase in respiratory effort. On 3L NC GI: Non-distended, +BS, soft, non-tender. Tube in situ on Right mid quadrant, dressing clean and dry SKIN: Warm and dry. No rashes. NEURO: Asleep but rousable, non-verbal, does not follow commands, chronic spasticity of all extremities. PSYCH: Cooperative. I/O s last 3 shifts: I/O last 3 completed shifts: In: 3260.1 [NG/GT:1066; IV Piggyback:990.1] Out: 3725 [Urine:3725] Reviewed 09/24/19 12:39 PM: [x] Laboratory [x] Transcriptions [x] Radiology [x] Microbiology [] Cardiology [] Outside Records [x] Medications [x] Family Time Spent/CCM Time: over 35 min * Janna Llanes DO - 09/23/2019 11:58 AM EST Janna Llanes DO [facility] Hospitalists DAILY PROGRESS NOTE Patient Name: Claudine Joseph PCP: Colette Goode MD Perpetual Assessment: Claudine Joseph is a 29 y.o. female with spastic Cerebral Palsy, Chronic dysphagia on tube feeds, Chronic Resp failure on 4-6L O2 at baseline, restrictive lung disease who presented from home on 09/19/2019 with cough, increasing O2 requirements and fever. She was admitted for severe sepsis and transferred to ICU on 09/20 am due to worsening resp status. She is transferred out of ICU09/22. Lives withher adoptive mother who provides all her care at home. Assessment and Plan Severe Sepsis due to pneumonia and aspiration and UTI -Source of sepsis is UTI and pneumonia -Strep and legionella Ag negative, Flu negative, MRSA probe negative -Blood cultures negative -Sputum with E.cloacae and Pseudomonas -Urine culture with Pseudomonas and Enterococcus -ICU care 09/20 to 09/22. -Continue vancomycin and Cefepime for 7 day course with last dose 09/27. -Continue to monitor Complicated UTI with indwelling sage present on admit - Sage cathter changed 09/21 - Urine culture noted-mixd fang - Continue antibiotics as above Acute on Chronic respiratory failure -Secondary to Pneumonia and aspiration -Baseline restrictive disease due to Scoliosis -Baseline O2 requirment 4-6L, now back to baseline -Continue O2 by NC -Goal O2 sat 88-92% -Continue Xopenex and prednisone for 5 days. Spastic Cerebral palsy -Non-verbal, restricted to wheelchair at baseline follows at [facility] neuro clinic. -Has Baclofen pump in place -Continue tube feeds by PEG. She has chronic aspiration and is NPO penitentiary. Seizure disorder - Refractory seizures and on complex regimen followed at [facility] neuro clinic. 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 Code Status: FULL code DVT Prophylaxis Lovechristinex Disposition and Comments Spoke to mother at the bedside. She provides all care at home and adopted Claudine at age 10. Maricruz worked with C in past and would like pt to go home with PICC and HHC to complete her Vanco and Maxipime if possible. Referral to [employer] [employer]. I explained to mother that unlikely to be able to arrange all this on a weekend and pt only due to have IV ATB until 09/27 therefore unlikely that PICC advisable. CC / Reason for follow up: Sepsis SUBJECTIVE: Seen and examined this am and mother at the bedside. ROS: < >> The following system(s) were reviewed. Pertinent positive and negative findings are noted in the HPI. Unable to obtain due to nonverbal status. [] Const [] Eyes [] ENT [] Resp [] CV [] GI [] [] Neuro [] Musc [] Skin [] Psych [] Endo [] Allergy [] Heme/Lymph PHYSICAL EXAMINATION: << >>>>> Temp: [98.4 F (36.9 C)-98.8 F (37.1 C)] 98.8 F (37.1 C) Heart Rate: [71-108] 79 Resp: [15-26] 15 BP: (97-116)/(66-76) 116/76 GENERAL: Non-verbal, sleeping but rousable EYES: Conjunctiva and sclera clear. ENT: Hearing intact. CV: Reg, no murmur. No edema. RESP: Clear, no rales, rhonchi, wheezes. No increase in respiratory effort. On 3L NC GI: Non-distended, +BS, soft, non-tender. Tube in situ on Right mid quadrant, dressing clean and dry SKIN: Warm and dry. No rashes. NEURO: Asleep but rousable, non-verbal, does not follow commands, chronic spasticity of all extremities. PSYCH: Cooperative. I/O s last 3 shifts: I/O last 3 completed shifts: In: 3055 [I.V.:55; NG/GT:1317; IV Piggyback:700] Out: 3095 [Urine:3095] Reviewed 09/23/19 11:58 AM: [x] Laboratory [x] Transcriptions [x] Radiology [x] Microbiology [] Cardiology [] Outside Records [x] Medications [x] Family Time Spent/CCM Time: over 35 min * Brendon Chavez MD - 09/22/2019 2:28 PM EST Brendon Chavez MD [facility] Hospitalists DAILY PROGRESS NOTE Patient Name: Claudine Joseph PCP: Colette Goode MD Perpetual Assessment: Claudine Joseph is a 29 y.o. female with Spatic Cerebral Palsy, Chronic dysphagia on tube feeds, Chronic Resp failure on 4-6L O2 at baseline, non- compliant with BIPAP, restrictive lung disease who presented from home on 09/19/2019 with cough, increasing O2 requirements and fever,she was admitted for severe sepsis and later transferred to ICU on 09/20 due to worsening resp status. She is transferredout of IC&U today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 dependent at baseline Past Medical History: Diagnosis Date Acute respiratory failure (HCC) Due to MRSA pneumonia 04/2016; Allergic rhinitis Anoxic brain damage (HCC) Aspiration, chronic pulmonary Aspiration, chronic pulmonary Bowel and bladder incontinence Cerebral palsy (HCC) Cerebral palsy (HCC) Chronic osteomyelitis of pelvic region, right (HCC) 2019 required right ischial debridement, followed by Dr. Noland of plastics Chronic respiratory failure with hypoxia ([facility]) 3 L NC, followed by Dr. Stephy Cisse and Dr. Amalia Terry Constipation Epilepsy ([facility]) followed at [facility] neurology clinic GERD (gastroesophageal reflux disease) occasional vomiting with gagging MRSA (methicillin resistant Staphylococcus aureus) 04/2016 Bilateral lungs Muscle spasticity medically refractory and has baclofen pump since 1999, followed at [facility] neuro baclofen pump clinic Nonverbal Answers yes with very long blinks per adoptive parent PEG (percutaneous endoscopic gastrostomy) status ([facility]) Presence of intrathecal baclofen pump [address] 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 Urine retention occasional occurrence that requires straight cath periodically Wheelchair bound Height: 4' 5 Current weight: 41.3 kg (91 lb 0.8 oz) BMI Body mass index is 22.79 kg/m .. BMI assessment: Suspectdifficult to get accurate ht d/t contractures. On PE appears obese for ht Weight hx: stable wt status Wt Readings from Last 5 Encounters: 09/20/19 41.3 kg (91 lb 0.8 oz) 06/29/19 41.7 kg (92 lb) 05/09/19 41.7 kg (92 lb) 05/04/19 42 kg (92 lb 8 oz) 02/01/19 43.1 kg (95 lb) Current diet order: NPO. Per mother, Replete at 60cc/hr x 15h followed by 60ml/hr of free water forremaining 9h Recent intake: Mother reports no problem with home TF administration. Current intake Likely meets estimated needs. Patient/family comments: Mother is very knowledgeable re Home TF administration and tube care. Pt receives daily miralax and senna to aid daily bowel function. At baseline, soft formed stools daily Nutrition Focus Physical Exam Type: Hands-On Regions Assessed Orbital: WNL Temporal: WNL Clavicular: WNL Interosseous: WNL Labs: Recent Labs 09/20/19 0527 NA 146* K 3.5 BICARB 30 CL 103 GLUCOSE 126* BUN 12 CREATININE 0.39* MG 2.1 Scheduled Meds: azithromycin 500 mg Intravenous Q24H cefePIMe (MAXIPIME) IVPB 1,000 mg Intravenous Q12H enoxaparin (LOVENOX) injection 40 mg Subcutaneous Daily lactated ringers 1,000 mL Intravenous Once lamoTRIgine 100 mg Tube BID lamoTRIgine 150 mg Tube BID levalbuterol 1.25 mg Nebulization TID levETIRAcetam 1,000 mg Tube BID metoprolol succinate 12.5 mg Oral Daily pantoprazole 40 mg Tube Daily [START ON 09/21/2019] polyethylene glycol 17 g Tube QAM senna-docusate 1 tablet Tube BID sodium chloride (PF) 5 mL Intravenous Q8H ISSAC vancomycin 750 mg Intravenous Q12H Continuous Infusions: lactated Ringers 75 mL/hr (09/20/19 1019) sodium chloride 0.9 % sodium chloride 0.9 % Estimated Energy Needs Total Energy Estimated Needs: 902-1025 Method for Estimating Needs: 22-25 kcal/kg current wt Total Protein Estimated Needs: 49-62 Method for Estimating Needs: 1.2-1.5 g/kg current wt Fluid Needs Total Fluid Estimated Needs: 1cc/kcal ~ Casi De La Cruz RD, [facility] [phone] * Yohan May, [facility],PharmD - 09/20/2019 3:57 AM EST PHARMACOTHERAPY NOTE: Antimicrobial Therapy Initiation Assessment / Plan: Claudine Joseph is a 29 y.o. female initiated on antimicrobial therapy for pneumonia. Patient initiated on vancomycin 750mg q12h Vancomycin trough goal is 15-20 mcg/mL. Will obtain level when at steady state or when clinically appropriate. Will monitor serum creatinine levels and urine output (if available) daily. Pharmacy will continue to follow, order levels, and make adjustments as needed. Please call pharmacy with questions. Current antibiotic regimen includes: vancomycin 2000mg q12h cefepime 1000mg q12h Objective: Ht Readings from Last 1 Encounters: 09/19/19 4' 4 (132.1 cm) Wt Readings from Last 1 Encounters: 09/19/19 37.6 kg (83 lb) [place] body weight: 37.9 kg (83 lb 8.4 oz) Labs include: WBC (K/mcL) Date Value 09/19/2019 14.83 (H) 04/22/2017 11.6 (H) Creatinine (mg/dL) Date Value 09/19/2019 0.32 (L) 04/22/2017 0.44 Estimated Creatinine Clearance: 154 mL/min (A) (by C-G formula based on SCr of 0.32 mg/dL (L)). Patient Tmax (last 24 hours): 98.9 F . Micro: Procedure Component Value Units Date/Time Urine Aerobic Culture [[id number]] Collected: 09/20/19 0120 Order Status: Sent Specimen: Urine, Catheter, Indwelling Updated: 09/20/19 0304 Blood Culture Aerobic/Anaerobic [[id number]] Collected: 09/19/191940 Order Status: Completed Specimen: Blood, Peripheral Updated: 09/19/192199 Culture In Progress; No Growth to Date Blood Culture Aerobic/Anaerobic [[id number]] Collected: 09/19/191937 Order Status: Completed Specimen: Blood, Peripheral Updated: 09/19/192199 Culture In Progress; No Growth to Date Pharmacist: Yohan May RPh,PharmD Contact Number: documented in this encounter* Ericka Schaefer LPN - 10/17/2019 11:45 AM EST confirmation fax sent and received from [facility] regarding 02 necessity form signed by dr cisse documented in this encounter* Ruma Godwin, ROCKY - 10/18/2019 10:19 AM EST [facility] Sp[facility]: Intrathecal Baclofen Therapy Progress Note 10/19/2019 CHIEF COMPLAINT Spasticity follow up from 06/29/2019 CONTEMOPORARY HISTORY Claudine presents to clinic with her mom Peg for ITB pump refill. Peg reports no recent infections. Reviewed discharge summary 09/27/2019 admitted 09/27/2019 for severe sepsis due to pneumonia and UTI. Peg reports is no longer using wound vac, decubitus healing, still packing daily. No recent seizure activity. Claudine is asleep today, states she was awake all night last night. OTHER RELEVANT HISTORY [facility] ROS Patient non-verbal She has a past medical history of Acute respiratory failure ([facility]), Allergic rhinitis, Anoxic brain damage (), Aspiration, chronic pulmonary, Bowel and bladder incontinence, Cerebral palsy ([facility]), Chronic osteomyelitis of pelvic region, right (HCC) (2018), Chronic respiratory failure with hypoxia ([facility]), Constipation, Epilepsy ([facility]), GERD (gastroesophageal reflux disease), MRSA (methicillin resistant Staphylococcus aureus) (04/2016), Muscle spasticity, Nonverbal, PEG (percutaneous endoscopic gastrostomy) status ([facility]), Presence of intrathecal baclofen pump (1999), Restrictive lung disease due to kyphoscoliosis, Urine retention, and Wheelchair bound. She has a past surgical history that includes Peg Tube Insertion; Baclofen pump implantation; Salivary gland surgery; Back surgery (1999); Cholecystectomy; Pain Pump Revision (N/A, 07/27/2016); Laminectomy Decomp Thoracic Multi Level (N/A, 07/27/2016); and Incision And Drainage Lower Extremity (Right, 12/02/2018). She reports that she has never smoked. She has never used smokeless tobacco. She reports that she does not drink alcohol or use drugs. Social History Social History Narrative Not on file She She was adopted. Family history is unknown by patient. Allergies Allergen Reactions Levaquin [Levofloxacin] Rash, flushing with RUE arm swelling. Augmentin [Amoxicillin-Pot Clavulanate] Rash Lactose Intolerance [Lactase] Penicillins Other (See Comments) Blisters Ragweed Unknown She has a current medication list which includes the following prescription(s): acetaminophen, baclofen, baclofen, cannabidiol, cholecalciferol (vitamin d3), diazepam, fluticasone propionate, guaifenesin, ipratropium, lamotrigine, lamotrigine, levetiracetam, lidocaine-prilocaine, loratadine, medroxy progesterone, metoprolol succinate, multivitamin, omeprazole, polyethylene glycol, promethazine, and morphine. PHYSICAL EXAMINATION Vital Signs: Blood pressure 102/62, pulse (!) 106. General Appearance: in no apparent distress, well nourished, conversant, cooperative, in no apparent distress Eyes: Anicteric sclerae. Moist conjunctivae. No lid edema noted. HENT: Head atraumatic, normocephalic. Oropharynx clear. Moist mucous membranes. Neck/ Thyroid:trachea midline. Supple. No massess. No thyromegaly. Lungs: Normal respiratory effort. No intercostal retractions. No dyspnea during conversation. Abdomen: soft, non-distended Extremities: no clubbing, cyanosis, pedal edema, ulcer nor wound noted. Skin: warm, dry, no rash, no ecchymoses, no petechiae noted Pysch: non verbal NEUROLOGICAL EXAMINATION Mental Status is asleep, arouses to speech. Modified Estefani Score: EE EF Hip add KE KF DF PF Right 2 1 0 0 Left 1 0 0 0 Wheelchair bound ITB TELEMETRY and OTHER DATA I have independently reviewed the ITB pump system telemetry. ASSESSMENT Claudine Joseph is a 29 y/o female with medically refractory, severe spasticity secondaryto CP managed with intrathecal baclofen therapy. Based on today s history, physical examination andreview of ITB telemetry, I feel her severe spasticity is active and negatively impact QoL / ADLs / vocation. Current ITB goals include: decrease cramps and spasms, spasticity related pains, loosen thelegs, loosen the arms, improve options for seating and positioning, help prevent contractures and bed sores, improve caregiver ease of care Other associated diagnoses / active problems for this visit include: weakness, spasticity, requireswheelchair / scooter for mobility, decubitus ulcer INTRATHECAL BACLOFEN SYSTEM INFORMATION FOR Claudine Joseph Severe Spasticity due to: CP Implanted: [address] Roxy RENE date: 43 (March 2023) Synchromed I IPump Size: 40 mL [place] Location: 11 oclock Catheter Tip Placement: PLAN REGARDING INTRATHECAL BACLOFEN THERAPY First Medication Brand: LIORESAL Concentration: 2000 mcg/mL Total Daily Dose: 649.8 mcg/day 1. Pump Programming: Simple Continuous 2. Pump Esto Refill: The injection site was prepped sterilely, landmarks were identified, and the pump was accessed with a coring needle. Approximately 4 (calculated 3.7) cc of clear, colorless fluid was removed from the reservoir. The reservoir was then refilled with 40 ml of 2000mcg/ml baclofen for intrathecal administration. No difficulties were noted, and the pressure was within acceptable limits. kit # [id number]: concentration 2000 mcg/ml, volume 40 ml was used. 3. Programming Adjustments today: None; refill only 4. ITB system Procedures today: pump computer interrogation, pump computer reprogramming and pump reservoir refill 5. Last reservoir refill date: 10/19/19 6. Pump Low Esto Alarm Date: 02/12/20 7. Claudine Joseph and/or her caregivers have verbal consents to all of the ITB system adjustments and procedures performed today PLAN REGARDING ADJUNCTIVE SPASTICITY THERAPIES 1. Noxious stimulation worsens spasticity. This included when the weather is cold outside, urinary tract infections and other infections, pressure sores, poor seating or sleeping ergonomics, constipation and urinary retention. she is encouraged to report any of these symptoms. 2. We recommend practicing good spasticity hygiene: A. Stretch upon waking, partway through the day, and before bed every day B. Stay adequately hydrated C. Treat constipation, urinary retention, bladder infections D. Check dependant areas of the body every day for redness / skin breakdown E. Exercise! Movement is camejo. Try yoga, magan chi, or water aerobics. D. Stop to stretch during long periods of sitting (long car ride, business meeting) F. Don't get too cool. Cold often worsens spasticity. PLAN REGARDING FOLLOW UP 1. We will schedule follow up a week before her alarm date, which is 02/12/2020. 2. I strongly recommend that she keep an up-to-date emergency bottle of oral baclofen with her atall times to take for withdrawal symptoms. 3. I also recommend that she keep her [employer] identification card with our clinic contact information at all times. 4. Dr. Ngo can be reached for emergencies and after hours by calling the [facility] at . PATIENT AND CARE PROVIDER EDUCATION You can learn more about spasticity and ITB therapy at the following website: www.baclofenpump.com If you have a smart phone then we recommend you download the free pump partner application as well. It is a resource for ITB education and tracking your personalized therapy. SYNCHROMED II ITB SYSTEM The intrathecal baclofen pump system is the way our treatment team gives baclofen directly into thespinal fluid. The system consists of a catheter (a small, flexible tube) and a pump. The pump -- a round metal disc, about one inch thick and three inches in diameter -- is surgically placed under the skin of the abdomen near the waistline. The pump stores and releases prescribed amounts of medicine through the cathete directly to the spinal fluid. With a programmable pump, a tiny motor moves themedication from the pump reservoir through the catheter. Using an external it programmer analyst, your treatment team can make adjustments in the dose, rate, and timing of the medication. Continuously delivers baclofen in small doses directly to the spinal fluid, increasing the therapeutic benefits and causing fewer and less severe side effects than the oral medication. Patients with a pump must return to their doctor's office for pump refills and medication adjustments, typically every 1-3 months. ITB SYSTEM MAINTENANCE AND REPAIR The catheter may kink, break or dislodge in up to 10% of cases and would require a surgery to revise it. The Synchromed II pump requires replacement for end of battery life within 7 years. This will require a surgery. The catheter is not required to be replaced, just the pump. INTRATHECAL BACLOFEN WITHDRAWAL Signs and symptoms of baclofen withdrawal often include diffuse body itching, increased stiffness and fever. I have reminded her to take 20mg of oral baclofen and contact our office if she has these symptoms. she may need to be seen in the emergency department. The baclofen withdrawal syndrome can progress to include confusion, sedation and even coma. In severe cases baclofen withdrawal can lead to kidney damage, seizures and possibly . A lumbar puncture with an injection of 50mcg intrathecal baclofen in the emergency department is often the best treatment to address severe balcofen withdrawal symptoms. INTRATHECAL BACLOFEN OVERDOSE Signs and symptoms of baclofen overdose often include sedation and confusion and most commonly occur recently following an ITB refill/program adjustment. I recommend Claudine Joseph contact our office prompts if these symptoms occur. The baclofen overdose syndrome can progress to include coma, seizures, respiratory and cardiac depression and possibly . I have reminded her to contact our office and go to the emergency room if she experiences these symptoms. A high volume lumbar puncture (removing 40cc of both CSF and intrathecal baclofen) in the emergency department is often the best treatment for severe baclofen overdose symptoms. ITB SYSTEM INFECTION Infection of the pump system can lead to meningitis (severe brain infection) and can be possibly fatal. Signs and symptoms of pump infection can include redness, swelling, or pain around the pump or surgical scar on the back. Fever and a stiff neck are also common. I recommend that Claudine Joseph go to the Emergency Department if she has any of signs/symptoms of pump infection. MRI SCANNING Synchromed II ITB pumps are MRI compatible including 3T strength scanners. The pump stops pumping temporarily when the patient is moved near the MRI machine. The pump automatically restarts once the patient moves away from the MRI machine. We follow a clinic best practice of interrogating the pump following MRI scans to ensure the ITB pump has restarted. This can often be arranged to be done by a[employer] Conference And Event Organiser if scheduled during business hours. We recommend AGAINST any MRI scans scheduled outside of business hours. EDUCATION: HOT TUBs, STEAM ROOMS, SAUNAS AND TANNING BED We recommend patients avoid these, especially if over 102 degrees. Heating up your body causes the ITB pump to potential increase its flow rate, which could cause overdose/. EDUCATION: SCUBA DIVING We recommend that an ITB patient avoid depths below 33 feet (10 meters). Diving lower than this could permanently damage the pump. Also as you descend and the pressure around your body increases, pump flow can decrease. This could lead to baclofen withdrawal/. EDUCATION REGARDING DAYLIGHT SAVINGS TIME The clock inside the pump does not adjust for daylight savings time changes (spring forward and fall backwards). If you are on flex dosing or bolus dosing programming then your dosing will becomeshifted an hour, which may cause problems for the patient. The pump clock only corrects for daylight savings time after being interrogated by a it programmer analyst. The flex/bolus dosing patient should schedule a visit after a time change to reset their pump clocks. I spent 30 minutes face to face with the patient today. Over half the time was spent counseling regarding her spasticity as well as it's underlying medical condition, as well as her coordinating care.Thank you very much for allowing me to participate in this patient's care and please do not hesitate to contact me with questions or concerns. Sincerely, Ruma Godwin MS, BSN, ACNP-BC, CNRN Acute Care Nurse Practitioner [facility] [place] [address] [place], [address] [place] [address] [email or web address] Office [phone] documented in this encounter* Bárbara Thomas RN - 10/24/2019 12:53 PM EST COMPLEX DISCHARGE Date: 10/24/2019 Time: 12:54 PM Patient Name: Claudine Joseph Date of : 1990 Sex: Female Resources Financial Resources: Medicaid Discharge Planning Living Arrangements: Parent Support Systems: Parent Assistance Needed: (Total Care) Type of Residence: Private residence Prior to Admission Home Care Services: Yes Type of Current Home Care Services: Home health care, Oxygen, Other (Comment)(Infusion Pharmacy) Patient expects to be discharged to:: (Home w/ resumption of services) Does the patient need discharge transport arranged?: No Current Agency Name: Other([facility]) Current Home Equipment: Wheel chair, Hospital bed, Nebulizer, Oxygen Anticipated HME: None Anticipated Home Care Needs: Home health care, Oxygen Anticipated Facility Type: Home infusion, Home care Anticipated Discharge Plan Anticipated HME: None Anticipated Home Care Needs: Home health care, Oxygen Anticipated Facility Type: Home infusion, Home care Potential for Readmission Potential for Readmission: No Discharge Readiness Expected Discharge Date: 10/24/19 [facility] Disposition D/C Disposition: Home Health Care Services Related to Current Admission?: No Agency/Destination: Other([facility]) Home Care Needs : Home health care, Infusion Pharmacy, Oxygen Infusion Agency: [place] HME: None Same As Recommended : yes Transportation Type: Auto Reason for Choice: Currently with agency Faxed prescription for Beneprotein to [place] [facility] [phone]. 1320 [facility] [phone]- notified of patient discharge today. Faxed day of discharge bundle to [phone]. * Leonidas Eason RD - 10/24/2019 8:36 AM EST Discussed case with Primary Team. -Replete at 40mL/hr via PEG. -1 packet Beneprotein 2x/day. (Mix with 60mL water. Flush with 60-120mL after administration). -20mL/hr continuous free water to meet fluid requirements. -Nutrition regimen provides 1010kcal, 73g protein, 1368mL free water. Leonidas Eason MS, RD, LD, [facility] * Baldemar Villa, DO - 10/24/2019 6:54 AM EST Resident Progress Note Patient Name: Claudine Joseph : 1990 Admit Date: Assessment and Plan 29 y.o. female with a PMH of spastic CP, quadriplegia, CRF on 3L NC, seizures, HTN who presented [facility] on 10/21/2019 with agitation and fevers. Systemic inflammatory response syndrome -Unclear etiology, no clear infectious source at this time. Chronic UTI with IDFC possibly without acute infection. Less likely respiratory, GI source. Sacral ulcer reported stable and healing. -Prior hospitalization 09/19-09/27 for pseudomonal pneumonia/UTI; Fevers, tachycardia, and lactic acidosis upon admit all improved. - BCX NGTD, UCX P. Aeruginosa and enterococcus faecalis seen on previous UCx (09/20). CXR w/o infiltrate. - Vanc/cefepime in ED. Will stop IV cefepime 10/23. Sage exchanged. Continue conservative management at this point and correct hypernatremia. Hypernatremia - Appears chronic but with hypovolemia on admit; limited free water intake with TF's. - Elevated on admit currently wnl. - s/p IVF LR and will d/c at this point. Will transition to 20 ml / hr free water. Monitor Na daily. - Will need repeat CBC and BMP within 1 - 2 weeks of discharge. Spastic cerebral palsy - quadriplegia at baseline; non verbal. Low concern for baclofen withdrawal. - pt follows with Dr. Murphy of neurology and has baclofen pump; recently refilled on 10/19 - pt's mother noted increased spasticity at home following refill and agitation with fevers but nowspasticity at baseline. Monitor for worsening spasticity. Chronic respiratory failure -restrictive lung disease due to scoliosis; pt wears about 3 L NC at baseline, on home O2 level. - monitor respiratory status; cont home supplemental oxygen . Seizures - Reported to have seizure 2-3x/wk without known episodes while IP. - cont home lamictal, keppra, valium prn for breakthrough seizure Decubitus ulcer - stable. Wound care consulted. Baldemar Donnie Villa DO PGY1 Pager Number - [phone] Chief Complaint Chief Complaint Patient presents with Dysuria Subjective Spoke with mom today. She states pt appears better and improved. Overall Mrs. Joseph appears better. HDS overnight on 2L O2 chronically. I/O - 2478 IN , 2000 mL out. 3x stool recorded yesterday. Patient Review of Systems Review of Systems Unable to perform ROS: Patient unresponsive Physical Exam Vital Signs: BP 110/62 Pulse 98 Temp 98.6 F (37 C) (Oral) Resp (!) 25 Ht 4' 6 Wt 37.6 kg(83 lb) SpO2 99% BMI 20.01 kg/m Physical Exam Constitutional: No distress. Eyes: Pupils are equal, round, and reactive to light. Right eye exhibits no discharge. Left eye exhibits no discharge. Cardiovascular: Normal rate, regular rhythm and normal heart sounds. Exam reveals no friction rub. No murmur heard. Pulmonary/Chest: Effort normal. No respiratory distress. She has no wheezes. Abdominal: Soft. Bowel sounds are normal. She exhibits distension. There is no abdominal tenderness. There is no rebound. Neurological: She is alert. Non-verbal at baseline. Minimal spastic in upper and lower extremities. Skin: There is erythema. Additional Data I have independently reviewed the following: Active Medications, Microbiology, Labs and Notes Home medication: Tylenol, baclofen 20 mg daily for withdrawal /baclofen intrathecal, cannabinol, vitamin D3, diazepam 6 mg as needed for seizure rescue, Flonase, Robitussin, ipratropium, Lamictal 100 mg twice daily, Lamictal 150 twice daily, lidocaine, loratadine, medroxyprogesterone, metoprolol 12.5 daily, multivitamin, omeprazole 20 mg, MiraLAX 10 g, Phenergan 12.5 Associated attestation - Bashir Carmona MD - 10/24/2019 1:18 PM EST Patient seen and evaluated independently of the Resident. I agree with their assessment and plan with additions as noted below. Please see the H&P for other details. Labs, medications, imaging and other studies were reviewed. The plan was discussed with the patient. Brief HPI: Patient seen with mom at bedside. Vitals stable. Na improved. Tolerating tube feedings. Protuberant abdomen is baseline per , she has had multiple BMs in the last 24 hours. [facility] for her decubitus ulcer, sees them weekly. ROS: Unobtainable, patient nonverbal at baseline Examination: VITALS: Temp: [98.3 F (36.8 C)-99.1 F (37.3 C)] 98.3 F (36.8 C) Heart Rate: [91-98] 95 Resp: [14-25] 21 BP: (105-128)/(62-76) 105/70 GEN: Chronically, nonverbal, calm and not moaning today CARDIO: RRR PULMONARY: Normal work of breathing, no obvious r/r/w noted GI: Protuberant, nontender. NEURO: Debilitated, nonverbal : Sage in place Assessment and Plan: Claudine Joseph is a 29 y.o. female with spastic cerebral palsy who presented from home with agitation/fevers. Fever--Etiology unclear. Do not feel she truly had UTI, has chronic bacteriuria. WBC count has normalized. Blood cultures remain negative. Flu negative. Antibiotics discontinued previously. No further work-up planned at this time, has been afebrile since initial temperature elevation on admission (>48 hours). Hypernatremia--Free water adjusted, Na level normalized. Recommend follow-up BMP in 1 week as outpatient. 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 Continue tube feedings per PEG (tolerating). Decubitus ulcer--Present on admission. Wound care following here[facility]. Seizure disorder--Continue multidrug regimen. OK for discharge home today. * Adrienne Patel RN - 10/23/2019 5:05 PM EST WOC/ET RN consult/evaluation note: Evaluated Claudine Joseph for wound located on RIGHT IT. Description of wound/Recommendation: Chronic wound to right IT. See details below. Mother currentlydressing with Aquacel AG every three days, may continue dressings. Gently pack wound with Aquacel ag rope leaving a tail for wicking. Change every three days. Raimundo Score: 12 - Recommend pressure reduction techniques including frequent repositioning, minimizing elevation of the head of the bed. Wound documentation : 10/23/19 1705 Wound (Inpatient and Home Care Only) 11/29/18 1 Ischial Tuberosity Right Date First Assessed/Time First Assessed: 11/29/18 1333 Number: 1 Present on Hospital Admission: YesPrimary Wound Type: Pressure Injury Location: Ischial Tuberosity Wound Location Orientation: Right Dressing Status Changed Wound Bed Characteristics Clean;[place] Drainage Amount Small Drainage Description Serosanguineous Primary/Secondary Dressing Hydrofiber Ag;Bordered foam dressing Wound Length (cm) 0.25 cm Wound Width (cm) 0.25 cm Wound Depth (cm) 1 cm Wound Surface Area (cm^2) 0.06 cm^2 Wound Margin Well defined Makenzie-wound Assessment Clean;Dry;Intact Dressing Changed New RN notified of assessment and plan. Adrienne FELTON RN-, [facility] Office: [phone] * Christina Abdi MSW LSW - 10/23/2019 10:36 AM EST SIMPLE DISCHARGE Date: 10/23/2019 Time: 10:36 AM Patient Name: Claudine Joseph Date of : 1990 Sex: Female Discharge Planning Living Arrangements: Parent Support Systems: Parent Assistance Needed: (Total Care) Type of Residence: Private residence Prior to Admission Home Care Services: Yes Type of Current Home Care Services: Home health care, Oxygen, Other (Comment)(Infusion Pharmacy) Patient expects to be discharged to:: (Home w/ resumption of services) Does the patient need discharge transport arranged?: No Current Agency Name: Other([facility]) Current Home Equipment: Wheel chair, Hospital bed, Nebulizer, Oxygen Anticipated HME: None Anticipated Home Care Needs: Home health care, Oxygen Anticipated Facility Type: Home infusion, Home care spoke with ASSOCIATE PROFESSOR OF THEOLOGY letting her know pt is medically ready to dc. ASSOCIATE PROFESSOR OF THEOLOGY called pt's mother and she was aware of possible dc today. Mother will transport pt home. ASSOCIATE PROFESSOR OF THEOLOGY placed ambulatory HHC orders. ASSOCIATE PROFESSOR OF THEOLOGY spoke with [facility] and they were unaware of pt being in the hospital. Pt does have private duty nurse. They will follow-up with family upon dc. Requested discharge orders be faxed over. No otherneeds identified and dc plans have been finalized. * Baldemar Villa, DO - 10/23/2019 6:49 AM EST Resident Progress Note Patient Name: Claudine Joseph : 1990 Admit Date: Assessment and Plan 29 y.o. female with a PMH of spastic CP, quadriplegia, CRF on 3L NC, seizures, HTN who presented [facility] on 10/21/2019 with agitation and fevers. Systemic inflammatory response syndrome -Unclear etiology, no clear infectious source at this time. Chronic UTI with IDFC possibly without acute infection. Less likely respiratory, GI source. Sacral ulcer reported stable and healing. -Prior hospitalization 09/19-09/27 for pseudomonal pneumonia/UTI; Fevers, tachycardia, and lactic acidosis upon admit all improved. - BCX NGTD, UCX P. Aeruginosa and enterococcus faecalis seen on previous UCx (09/20). CXR w/o infiltrate. - Vanc/cefepime in ED. Will stop IV cefepime 10/23. Sage exchanged. Continue conservative management at this point and correct hypernatremia. Hypernatremia - Appears chronic but with hypovolemia on admit; limited free water intake with TF's. - Elevated on admit with minimal improvement. - s/p IVF LR and will d/c at this point. Will transition to 250 ml FW Q4H per tube feed. Monitor Nadaily. Spastic cerebral palsy - quadriplegia at baseline; non verbal. Low concern for baclofen withdrawal. - pt follows with Dr. Murphy of neurology and has baclofen pump; recently refilled on 10/19 - pt's mother noted increased spasticity at home following refill and agitation with fevers but nowspasticity at baseline. Monitor for worsening spasticity. Chronic respiratory failure -restrictive lung disease due to scoliosis; pt wears about 3 L NC at baseline, on home O2 level. - monitor respiratory status; cont home supplemental oxygen . Seizures - Reported to have seizure 2-3x/wk without known episodes while IP. - cont home lamictal, keppra, valium prn for breakthrough seizure Decubitus ulcer - stable. Wound care consulted. Baldemar Villa DO PGY1 Pager Number - [phone] Chief Complaint Chief Complaint Patient presents with Dysuria Subjective Pt is non verbal at baseline which she was today. Talked to mother today who has seen Pt during admission and says she is doing better. Patient Review of Systems Review of Systems Unable to perform ROS: Patient unresponsive Physical Exam Vital Signs: BP 115/64 (BP Location: Right leg, Patient Position: Lying) Pulse 83 Temp 98.2 F (36.8 C) (Axillary) Resp (!) 19 Ht 4' 6 Wt 37.6 kg (83 lb) SpO2 100% BMI 20.01 kg/m Physical Exam Constitutional: No distress. Eyes: Pupils are equal, round, and reactive to light. Right eye exhibits no discharge. Left eye exhibits no discharge. Cardiovascular: Normal rate, regular rhythm and normal heart sounds. Exam reveals no friction rub. No murmur heard. Pulmonary/Chest: Effort normal. No respiratory distress. She has no wheezes. Abdominal: Soft. She exhibits distension. There is no abdominal tenderness. There is no rebound. Neurological: She is alert. Minimal spastic in upper and lower extremities Skin: There is erythema. Additional Data I have independently reviewed the following: Active Medications, Microbiology, Labs and Notes Home medication: Tylenol, baclofen 20 mg daily for withdrawal /baclofen intrathecal, cannabinol, vitamin D3, diazepam 6 mg as needed for seizure rescue, Flonase, Robitussin, ipratropium, Lamictal 100 mg twice daily, Lamictal 150 twice daily, lidocaine, loratadine, medroxyprogesterone, metoprolol 12.5 daily, multivitamin, omeprazole 20 mg, MiraLAX 10 g, Phenergan 12.5 Associated attestation - Bashir Carmona MD - 10/23/2019 9:11 PM EST Patient seen and evaluated independently of the Resident. I agree with their assessment and plan with additions as noted below. Please see the H&P for other details. Labs, medications, imaging and other studies were reviewed. The plan was discussed with the patient. Brief HPI: Patient seen and examined this afternoon, no family present. Patient nonverbal, unable to obtain ROS. Moans at times. ROS: See HPI Examination: VITALS: Temp: [98.2 F (36.8 C)-99.2 F (37.3 C)] 99.1 F (37.3 C) Heart Rate: [71-101] 96 Resp: [14-21] 14 BP: (105-128)/(62-76) 128/76 GEN: Chronically ill, nonverbal, moans at times. CARDIO: Tachycardic, regular rhythm PULMONARY: Normal work of breathing, lungs seem fairly clear in anterior lung zones. GI: PEG tube in place, skin irritated around site. Protuberant abdomen, but does not appear tender : Sage catheter in place. NEURO: Debilitated, nonverbal Assessment and Plan: Claudine Joseph is a 29 y.o. female with spastic cerebral palsy who presented from home with agitation/fevers. Fever--Etiology unclear. Not convinced of UTI, has chronic bacteriuria. WBC count normal now. Bloodcultures negative. Flu negative. Will stop Cefepime. Observe. Hypernatremia--Adjust free water per tube, stop IV fluids. 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 Continue tube feedings per PEG (tolerating). Decubitus ulcer--Present on admission. Wound care following. Seizure disorder--Continue multidrug regimen. * Fidencio Og MD - 10/22/2019 12:23 PM EST Resident Progress Note Patient Name: Claudine Joseph : 1990 Admit Date: Assessment and Plan 29 y.o. female with a PMH of spastic CP, CRF on 3L NC, seizures, HTN who presented to [facility] on 10/21/2019 with agitation and fevers. SIRS+ Without clear source to designate as septic. May have chronic UTI with IDFC possibly without acute infection. Less likely respiratory, GI source. Sacral ulcer reported stable. -Prior hospitalization 09/19-09/27 for pseudomonal pneumonia/UTI; Fevers, tachycardia upon admit improved,lactic acidosis on admit resolved w/ IVFs, Vanc/cefepime in ED; BCX, UCX pending and without infiltrates on CXR. -Continue IV cefepime until 10/23, consider cessation thereafter if cultures continually (-). -Will ensure sage catheter has been exchanged. Hypernatremia Appears chronic but with hypovolemia on admit; limited free water intake with TF's -Elevated on admit with slight downtrend. -Continue LR, consider initiating FW with TFs, if refractory could trial 0.45 NS. -Monitor Na Spastic cerebral palsy pt with quadriplegia at baseline; non verbal. Low concern for baclofen withdrawal. - pt follows with Dr. Murphy of neurology and has baclofen pump; recently refilled on 10/19 - pt's mother noted increased spasticity at home following refill and agitation with fevers but nowspasticity at baseline. -Monitor for worsening spasticity. Chronic respiratory failure -restrictive lung disease due to scoliosis; pt wears about 3 L NC at baseline, on home O2 level. - monitor respiratory status; cont home supplemental oxygen . Seizures Reported to have seizure 2-3x/wk without known episodes while IP. - cont home lamictal, keppra - cont valium prn for breakthrough seizure Decubitus ulcer - due to immobility from quadriplegia and CP - pt with chronic osteomyelitis and debrided in 11/2018 - lower suspicion for acute infection -Wound care consulted. Dysphagia Due to underlying spastic CP, received TFs at home through PEG. -Monitor PEG tube site for infection, appeared intact without purulence. -Dietary following to manage TFs. Hypertension Per history -Continue home BB DVT Prophylaxis: Lovenox Full code Medication Reviewed Expected Disposition: Likely home in 48-72 hours. Patient's mother will need prior notice before discharge due to needed home preparation. All care and management plans will be discussed with the attending on service. Fidencio Og PGY-1 Pager: [phone] Chief Complaint Chief Complaint Patient presents with Dysuria Subjective Patient evaluated bedside without family. HPI not obtained due to patient's mental status Patient Review of Systems Review of Systems Unobtainable due to patient's mental status. Physical Exam Vital Signs: BP (!) 93/53 (BP Location: Right arm, Patient Position: Lying) Pulse 98 Temp 99 F (37.2 C) (Axillary) Resp (!) 19 Ht 4' 6 Wt 37.6 kg (83 lb) SpO2 100% BMI 20.01 kg/m Physical Exam Constitutional: Nonverbal. HENT: Head: Normocephalic and atraumatic. Eyes: Right eye exhibits no discharge. Left eye exhibits no discharge. No scleral icterus. Neck: No JVD present. Cardiovascular: Normal rate, regular rhythm, normal heart sounds and intact distal pulses. Exam reveals no friction rub. No murmur heard. Pulmonary/Chest: Effort normal and breath sounds normal. No respiratory distress. She has no wheezes. Abdominal: Soft. Bowel sounds are normal. She exhibits no distension. There is no abdominal tenderness. PEG tube site without purulence and appeared intact. Musculoskeletal: Comments: Moves all 4 extremities spontaneously. Spasticity appreciated with passive ROM. Neurological: Without appreciable FNDs. Additional Data I have independently reviewed the following: Active Medications, Labs and Notes Associated attestation - Huber Priest MD - 10/22/2019 1:13 PM EST I have seen and examined/evaluated the patient and discussed with the residents. I agree with their assessment and plan of care in general, with any additions/exceptions as noted below. Extensive previous hospital records were reviewed. The patient was resting comfortably this morning. She appears chronically ill and extremely deconditioned, but according to review of previous records, this appears to be baseline. There is some seepage coming from the area around her PEG tube. Her breathing is comfortable. There are no other overtsources of infection and her decubitus is healing. Care was coordinated with the nurse Vitals afebrile. Pulse 81-98. Respiratory rate 19. 3 L nasal cannula oxygen (baseline) Labs and imaging reviewed. WBC down from 15-9. Urinalysis abnormal. Sodium remains elevated at 150,appears chronic. Hemoglobin 10.1 urine cultures with Pseudomonas and enterococcus. Flu swab negative. Chest x-ray limited due to scoliosis. No consolidations. GEN chronically debilitated and cachectic bedbound female who is unwell appearing but nontoxic CVS S1, S2 regular rate and rhythm PUL normal work of breathing, poor effort GI PEG tube with yellowish drainage, no erythema or signs of infection EXT thin and cachectic lower extremities without edema MSK very contractured bilateral upper and lower extremities NEURO unresponsive PSYCH unable to assess A/P: Unfortunate 29-year-old female with spastic cerebral palsy, uses baclofen pump; previous seizure disorder, decubitus ulcer present on admission, chronic hypoxic respiratory failure on oxygen, chronic Sage catheter, who presented with increasing agitation, tachycardia, and fever, with initial concern for sepsis Tachycardia and fever, I do not suspect sepsis was ever present. Suspect inflammatory reaction secondary to chronic bacteriuria in patient with poor baseline. Chronic bacteriuria, Pseudomonas and enterococcus again isolated on cultures, with chronic indwelling Sage catheter Possible recurrent urinary tract infection Hypernatremia, acute on chronic Anemia of chronic disease History of seizures History of decubitus ulcer PEG tube present with some leakage Wheelchair-bound status Chronic hypoxic respiratory failure, on oxygen History of osteomyelitis of the pelvis GERD Previous aspiration pneumonia Patient appears to have clinically improved. Her urine cultures are already growing Pseudomonas andentero-coccus. I suspect these are likely chronic in the setting of her previous UTI and chronic indwelling Sage. These are similar to prior hospitalization where she had similar pathogens in the urine and was found to have Pseudomonas pneumonia as well. For now continue IV cefepime for short course. Exchange Sage catheter. I am not sure if she would be a candidate for a suprapubic catheter given her ongoing infections and poor mobility. Consider urology evaluation for this We will ask enterostomal therapy to reevaluate her decubitus. Dietary has been consulted to assist with tube feeds. Consider further imaging such as abdominal CT scan with IV contrast. Monitor the seeping/leakage around her PEG tube but I do not think she is infected in that area. Continue her previous antiepileptic regimen. Added free water given her ongoing and worsened hypernatremia and continue IV fluids for now as she appeared clinically dehydrated Suspect she will be here for a few days to allow her clinical scenario to declare itself. documented in this encounter* Ruma Godwin, DIRECTOR OF GLOBAL SALES - 02/08/2020 11:30 AM EDT [facility]: Intrathecal Baclofen Therapy Progress Note 02/08/2020 CHIEF COMPLAINT Spasticity follow up from 10/19/2019 IMPRESSIONS AT LAST VISIT / INTERM HISTORY Claudine Joseph is a 29 y/o female with medically refractory, severe spasticity secondary to CP managed with intrathecal baclofen therapy. Based on today s history, physical examination and review of ITB telemetry, I feel her severe spasticity is active and negatively impact QoL / ADLs /vocation. Current ITB goals include: decrease cramps and spasms, spasticity related pains, loosen thelegs, loosen the arms, improve options for seating and positioning, help prevent contractures and bed sores, improve caregiver ease of care Other associated diagnoses / active problems for this visit include: weakness, spasticity, requireswheelchair / scooter for mobility, decubitus ulcer. CONTEMOPORARY HISTORY Claudine presents to clinic for ITB pump refill. Peg reports new pressure ulcer right gluteal fold has wound vac in place. Denies any infection. No change in spasticity. OTHER RELEVANT HISTORY [facility] [place] ROS - 02/08/20 1105 General Change in weight No Fever No Chills No Night Sweats No Cough No Shortness of Breath No Joint pain / swelling No Muscle pain / cramps No Chest pain No Palpitations No Nausea / Vomiting No Neurologic Double vision No Blurred / decreased vision No Difficulty swallowing Yes Difficulty with speech Yes Numbness / tingling No Painful skin sensations No Muscle weakness Yes Heat sensitivity Yes Motor fatigue No Incoordination/ poor balance Yes Difficulty walking Yes Recent Falls No L'hermitte No Difficulty with thinking and memory No Pathologic fatigue No Depression No Anxiety No Urinary urgency No Urinary frequency No Urinary retention / hesitancy No Recent Urinary Tract Infections No Bowel complaints No Sexual Dysfunction No Poor sleep Yes Headaches No Recent Seizures No She has a past medical history of Acute respiratory failure (HCC), Allergic rhinitis, Anoxic brain damage ([facility]), Aspiration, chronic pulmonary, Bowel and bladder incontinence, Cerebral palsy (HCC), Chronic osteomyelitis of pelvic region, right (HCC) (2018), Chronic respiratory failure with hypoxia (HCC), Constipation, Epilepsy (HCC), GERD (gastroesophageal reflux disease), MRSA (methicillin resistant Staphylococcus aureus) (04/2016), Muscle spasticity, Nonverbal, PEG (percutaneous endoscopic gastrostomy) status ([facility]), Presence of intrathecal baclofen pump (1999), Restrictive lung disease due to kyphoscoliosis, Urine retention, and Wheelchair bound. She has a past surgical history that includes Peg Tube Insertion; Baclofen pump implantation; Salivary gland surgery; Back surgery (1999); Cholecystectomy; Pain Pump Revision (N/A, 07/27/2016); Laminectomy Decomp Thoracic Multi Level (N/A, 07/27/2016); and Incision And Drainage Lower Extremity (Right, 12/02/2018). She reports that she has never smoked. She has never used smokeless tobacco. She reports that she does not drink alcohol or use drugs. Social History Social History Narrative Not on file She She was adopted. Family history is unknown by patient. Allergies Allergen Reactions Levaquin [Levofloxacin] Rash, flushing with RUE arm swelling. Augmentin [Amoxicillin-Pot Clavulanate] Rash Lactose Intolerance [Lactase] Penicillins Other (See Comments) Blisters Ragweed Unknown She has a current medication list which includes the following prescription(s): acetaminophen, baclofen, cholecalciferol (vitamin d3), diazepam, epidiolex, fluticasone propionate, guaifenesin, ipratropium, lamotrigine, lamotrigine, levetiracetam, lidocaine-prilocaine, loratadine, medroxyprogesterone, metoprolol succinate, multivitamin, omeprazole, polyethylene glycol, promethazine, beneprotein, baclofen, doxycycline hyclate, and montelukast. PHYSICAL EXAMINATION Vital Signs: Blood pressure 92/63, pulse 73. General Appearance: in no apparent distress Eyes: Anicteric sclerae. Moist conjunctivae. No lid edema noted. HENT: Head atraumatic, normocephalic. Oropharynx clear. Moist mucous membranes. Neck/ Thyroid:trachea midline. Supple. No massess. No thyromegaly. Lungs: Normal respiratory effort. No intercostal retractions. No dyspnea during conversation. Abdomen: soft, non-distended Extremities: no clubbing, cyanosis, pedal edema, ulcer nor wound noted. Skin: warm, dry, no rash, no ecchymoses, no petechiae noted NEUROLOGICAL EXAMINATION Mental Status - awake, tracks arouses to speech. Modified Estefani Score: EE EF Hip add KE KF DF PF Right 2 1 0 0 Left 1 0 0 0 Wheelchair bound ITB TELEMETRY and OTHER DATA I have independently reviewed the ITB pump system telemetry. ASSESSMENT Claudine Joseph is a 29 y/o female with medically refractory, severe spasticity secondaryto CP managed with intrathecal baclofen therapy. Claudine by clinical history and exam remains stable. We refilled her pump and maintained her current dose. She unfortunately developed a pressure ulcer right gluteal fold being managed by wound vac. Based on today s history, physical examination and review of ITB telemetry, I feel her severe spasticity is active and negatively impact QoL / ADLs / vocation. Current ITB goals include: decrease cramps and spasms, spasticity related pains, loosen thelegs, loosen the arms, improve options for seating and positioning, help prevent contractures and bed sores, improve caregiver ease of care Other associated diagnoses / active problems for this visit include: weakness, spasticity, requireswheelchair / scooter for mobility, decubitus ulcer. 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 Roxy RENE date: 39 (March 2023) Synchromed I IPump Size: 40 mL [place]ard Location: 11 oclock Catheter Tip Placement: PLAN REGARDING INTRATHECAL BACLOFEN THERAPY First Medication Brand: LIORESAL Concentration: 2000 mcg/mL Total Daily Dose: 649.8 mcg/day 1. Pump Programming: Simple Continuous 2. Pump Esto Refill: The injection site was prepped sterilely, landmarks were identified, and the pump was accessed with a coring needle. Approximately 4 (calculated 3.7) cc of clear, colorless fluid was removed from the reservoir. The reservoir was then refilled with 40 ml of 2000,cg/ml baclofen for intrathecal administration. No difficulties were noted, and the pressure was within acceptable limits. kit # 8566: concentration 2000 mcg/ml, volume 40 ml was used. 3. Programming Adjustments today: None; refill only 4. ITB system Procedures today: pump computer interrogation, pump computer reprogramming and pump reservoir refill 5. Last reservoir refill date: 02/08/20 6. Pump Low Esto Alarm Date: 06/03/20 7. Claudine Joseph and/or her caregivers have verbal consents to all of the ITB system adjustments and procedures performed today PLAN REGARDING ADJUNCTIVE SPASTICITY THERAPIES 1. Noxious stimulation worsens spasticity. This included when the weather is cold outside, urinary tract infections and other infections, pressure sores, poor seating or sleeping ergonomics, constipation and urinary retention. she is encouraged to report any of these symptoms. 2. We recommend practicing good spasticity hygiene: A. Stretch upon waking, partway through the day, and before bed every day B. Stay adequately hydrated C. Treat constipation, urinary retention, bladder infections D. Check dependant areas of the body every day for redness / skin breakdown E. Exercise! Movement is camejo. Try yoga, magan chi, or water aerobics. D. Stop to stretch during long periods of sitting (long car ride, business meeting) F. Don't get too cool. Cold often worsens spasticity. PLAN REGARDING FOLLOW UP 1. We will schedule follow up a week before her alarm date, which is 06/03/2020. 2. I strongly recommend that she keep an up-to-date emergency bottle of oral baclofen with her atall times to take for withdrawal symptoms. 3. I also recommend that she keep her [employer] identification card with our clinic contact information at all times. 4. Dr. Ngo can be reached for emergencies and after hours by calling the [facility] at . PATIENT AND CARE PROVIDER EDUCATION You can learn more about spasticity and ITB therapy at the following website: [email or web address].com If you have a smart phone then we recommend you download the free pump partner application as well. It is a resource for ITB education and tracking your personalized therapy. SYNCHROMED II ITB SYSTEM The intrathecal baclofen pump system is the way our treatment team gives baclofen directly into thespinal fluid. The system consists of a catheter (a small, flexible tube) and a pump. The pump -- a round metal disc, about one inch thick and three inches in diameter -- is surgically placed under the skin of the abdomen near the waistline. The pump stores and releases prescribed amounts of medicine through the cathete directly to the spinal fluid. With a programmable pump, a tiny motor moves themedication from the pump reservoir through the catheter. Using an external it programmer analyst, your treatment team can make adjustments in the dose, rate, and timing of the medication. Continuously delivers baclofen in small doses directly to the spinal fluid, increasing the therapeutic benefits and causing fewer and less severe side effects than the oral medication. Patients with a pump must return to their doctor's office for pump refills and medication adjustments, typically every 1-3 months. ITB SYSTEM MAINTENANCE AND REPAIR The catheter may kink, break or dislodge in up to 10% of cases and would require a surgery to revise it. The Synchromed II pump requires replacement for end of battery life within 7 years. This will require a surgery. The catheter is not required to be replaced, just the pump. INTRATHECAL BACLOFEN WITHDRAWAL Signs and symptoms of baclofen withdrawal often include diffuse body itching, increased stiffness and fever. I have reminded her to take 20mg of oral baclofen and contact our office if she has these symptoms. she may need to be seen in the emergency department. The baclofen withdrawal syndrome can progress to include confusion, sedation and even coma. In severe cases baclofen withdrawal can lead to kidney damage, seizures and possibly . A lumbar puncture with an injection of 50mcg intrathecal baclofen in the emergency department is often the best treatment to address severe balcofen withdrawal symptoms. INTRATHECAL BACLOFEN OVERDOSE Signs and symptoms of baclofen overdose often include sedation and confusion and most commonly occur recently following an ITB refill/program adjustment. I recommend Claudine Joseph contactour office prompts if these symptoms occur. The baclofen overdose syndrome can progress to include coma, seizures, respiratory and cardiac depression and possibly . I have reminded her to contact our office and go to the emergency room if she experiences these symptoms. A high volume lumbar puncture (removing 40cc of both CSF and intrathecal baclofen) in the emergency department is often thebest treatment for severe baclofen overdose symptoms. ITB SYSTEM INFECTION Infection of the pump system can lead to meningitis (severe brain infection) and can be possibly fatal. Signs and symptoms of pump infection can include redness, swelling, or pain around the pump or surgical scar on the back. Fever and a stiff neck are also common. I recommend that Claudine Joseph go to the Emergency Department if she has any of signs/symptoms of pump infection. MRI SCANNING Synchromed II ITB pumps are MRI compatible including 3T strength scanners. The pump stops pumping temporarily when the patient is moved near the MRI machine. The pump automatically restarts once the patient moves away from the MRI machine. We follow a clinic best practice of interrogating the pump following MRI scans to ensure the ITB pump has restarted. This can often be arranged to be done by a[employer] Conference And Event Organiser if scheduled during business hours. We recommend AGAINST any MRI scans scheduled outside of business hours. EDUCATION: HOT TUBs, STEAM ROOMS, SAUNAS AND TANNING BED We recommend patients avoid these, especially if over 102 degrees. Heating up your body causes the ITB pump to potential increase its flow rate, which could cause overdose/. EDUCATION: SCUBA DIVING We recommend that an ITB patient avoid depths below 33 feet (10 meters). Diving lower than this could permanently damage the pump. Also as you descend and the pressure around your body increases, pump flow can decrease. This could lead to baclofen withdrawal/. EDUCATION REGARDING DAYLIGHT SAVINGS TIME The clock inside the pump does not adjust for daylight savings time changes (spring forward and fall backwards). If you are on flex dosing or bolus dosing programming then your dosing will becomeshifted an hour, which may cause problems for the patient. The pump clock only corrects for daylight savings time after being interrogated by a it programmer analyst. The flex/bolus dosing patient should schedule a visit after a time change to reset their pump clocks. I spent 30 minutes face to face with the patient today. Over half the time was spent counseling regarding her spasticity as well as it's underlying medical condition, as well as her coordinating care.Thank you very much for allowing me to participate in this patient's care and please do not hesitate to contact me with questions or concerns. Sincerely, Ruma Godwin MS, BSN, ACNP-BC, CNRN Acute Care Nurse Practitioner [facility] [address] [place], [address] [place] [id number] [email or web address] [phone] documented in this encounter* Marck June, DO - 02/14/2020 10:19 AM EDT [email or web address] Inpatient Progress Note 02/14/2020 Claudine Joseph 1990 [id number] Assessment/Plan: Claudine Joseph is a 29 y.o. female with a history of spastic cerebral palsy, quadriplegia, chronic respiratory failure, seizures, decubitus ulcers with wound vac, chronic sage, and feeding tube who presented to [facility] 02/12/2020 with cough and fever. Found to be septic on arrival with suspected aspiration pneumonia. 1. Sepsis due to Aspiration Pneumonia: sepsis was present on admit. Per patient's mother, pt had anepisode of vomiting on 02/10/20 and likely aspirated at that time as they could not suction her quick enough. The following day, she started coughing and was dyspneic. Developed fever on 02/12/20. CXR on admit limited due to pt's position, showed small amount of bibasilar atelectasis vs early infiltrates. U/A on admit positive for infection, however has chronic sage. Urine culture 02/13/20 in process (should not have been collected). Blood cultures x2 02/12/20 negative to date. Empiric zosyn/vanco, transitioned to rocephin on 02/13/20, transition to clindamycin for total of 7 day course. 2. Lactic Acidosis: with lactate 4.0 on admit. Resolved with IV fluids/abx. 3. Chronic Hypoxic Respiratory Failure: on 4-5 L O2 via NC. Stable on admission. Maximize pulmonarytoilet. 4. Spastic Cerebral Palsy: complicated by quadriplegia, seizures, decubitus ulcers, and dysphagia. Nonverbal at baseline, but able to communicate via blinking. Has intrathecal baclofen pump (filled last week). 5. Chronic Seizures: per hx, continued to have minor breakthrough seizure despite compliance with multiple AEDs. No major recent seizures. Continued lamictal, keppra, and CBD oil (provided by pt's mother), with PRN valium. 6. Chronic Wound: due to pressure injury POA. Has wound VAC in place. Follows with wound care clinic. Held home suppressive doxycycline while on IV antibiotic, resume when able. ET RN following. 7. Chronic Dysphagia: as above, PEG tube in place, resumed tube feeding. Captain Waiter/Waitress followed. 8. Chronic Urinary Retention: as above, chronic sage in place, exchanged by mother at home, requested exchange while inpatient. 9. Code Status: full code per discussion with mother on admit. 10. DVT Prophylaxis: heparin SQ. Mother (Peg) # [phone] Discussed patient's care with her mother at the bedside on 02/14/2020 Current living situation: home with mother Expected Disposition: same Estimated discharge date: 02/14/20-02/15/20 Subjective: I reviewed chart for all vitals, diagnostic data, and it systems analyst consultant notes. I discussed patient's care with RN, chargeback specialist, Pharmacy, Captain Waiter/Waitress, Sas Programmer Analyst, and Corporate Communications Specialist. Patient with no acute events overnight and was resting comfortably. At baseline O2 requirement. Physical Exam: BP 128/76 Pulse (!) 125 Temp 100.3 F (37.9 C) (Oral) Resp 16 Ht 4' 5 Wt 37.6 kg (83 lb) SpO2 98% BMI 20.77 kg/m General: in NAD, resting comfortably Eyes: EOMI, anicteric ENT: neck supple, nasal cannula in place Cardiovascular: regular rate and rhythm, no peripheral edema Respiratory: clear to auscultation b/L; mild bibasilar crackles Gastrointestinal: soft, non-distended, PEG tube in place Genitourinary: no suprapubic tenderness, sage in place Musculoskeletal: no joint edema, multiple bony deformities Skin: warm, dry Neuro: non-verbal, no gross focal deficits Psych: unable to fully assess Current Medications: Labs, Imaging and Studies reviewed: Results from last 7 days Lab Units 02/14/20 0328 02/13/20 03102/12/20 1414 WBC K/mcL 12.28* 12.62* 18.37* HGB g/dL 9.6* 8.8* 11.7* HCT % 34.5* 30.2* 40.2 PLT K/mcL 195 296 238 Results from last 7 days Lab Units 02/14/20 0328 02/13/20 0312 02/12/20 1414 SODIUM mmol/L 142 145 144 POTASSIUM mmol/L 3.5 2.8* 3.6 CHLORIDE mmol/L 105 109* 97* BICARB mmol/L 26 27 35* BUN mg/dL 7* 9 19 CREATININE mg/dL 0.26* 0.24* 0.33* EGFR mL/min/1.73 m2 163 167 150 GLUCOSE mg/dL 142* 93 135* CALCIUM mg/dL 9.3 8.6 -- Results from last 7 days Lab Units 02/12/20 1414 ALT U/L 35 AST U/L 21 ALK PHOS U/L 254* BILIRUBIN TOTAL mg/dL 0.3 * Carisa Tellez RN - 02/13/2020 12:47 PM EDT [facility] nursing visit for NPWT dressing change. The patient was not premedicated for pain. Mother reports that she sleeps during the dressing change at home. Removed dressing, see details of wound below.The makenzie wound skin was cleansed with soap and water, allowed to dry, and Cavilon no sting barrier film was applied. One piece of black foam placed into the wound bed , one piece used as a bridge.secured with drape. NPWT was initiated at 125 mmHg, no appreciable leaks. Patient tolerated the dressing change well. Next dressing change 02/13/2020. Orders are in place for monitoring of drainage, who to call for dressing issues and unit alarms, what to do if continuous suction is lost > 2 hours, and management of vac should the patient be discharged prior to next dressing change. DO NOT discharge patient with hospital vac unit. NPWT / Wound VAC Instructions for discharge or transfer to another facility: Remove VAC dressing and discard canister. Apply normal saline moist gauze dressing to wound. Take dirty unit to Supply andDistribution Wound Documentation: 02/13/20 1243 Negative Pressure Wound Therapy 02/13/20 Right;Other (Comment) Date First Assessed/Time First Assessed: 02/13/20 1237 Wound Type: Pressure ulcer: stage III Location: Buttocks Wound Location Orientation: (c) Right;Other (Comment) Wound Bed Characteristics Red;Yellow;Drainage Makenzie-wound Assessment Warm;Clean;Dry;Intact Unit Type Vac Ulta Dressing Type Black foam Number of Foam Pieces Used 2 Cycle Continuous;On Target Pressure (mmHg) 125 Intensity 1 Canister Changed Other (Comment) (New) Dressing Status Clean;Dry;Intact;Occlusive;Transparent Drainage Amount Moderate Drainage Description Serosanguineous Wound 02/13/20 Chronic Pressure Injury Buttock Right;Other (Comment) Date First Assessed/Time First Assessed: 02/13/20 1242 Present on Hospital Admission: Yes Wound Condition (HOME HEALTH ONLY): Chronic Primary Wound Type: Pressure Injury Location: Buttock Wound Location Orientation: (c) Right;Other (Comment) Dressing Status Removed Dressing Changed New Wound Length (cm) 6 cm Wound Width (cm) 2.5 cm Wound Depth (cm) 3 cm Wound Surface Area (cm^2) 15 cm^2 Wound Volume (cm^3) 45 cm^3 Area % Change 0 Pressure Injury Stage 3 State of Healing Non-healing Drainage Amount Moderate Drainage Description Serosanguineous Odor None Wound Margin Well defined;Attached to wound base Wound Bed Characteristics Red;Yellow Makenzie-wound Assessment Warm;Clean;Dry;Intact Cleansed Other (Comment) (Johnny Wound Clenser) Primary Dressing NPWT Carisa Tellez RN * Marck June, - 02/13/2020 7:54 AM EDT [facility] Inpatient Progress Note 02/13/2020 Claudine Joseph 1990 [id number] Assessment/Plan: Claudine Joseph is a 29 y.o. female with a history of spastic cerebral palsy, quadriplegia, chronic respiratory failure, seizures, decubitus ulcers with wound vac, chronic sage, and feeding tube who presented to [facility] 02/12/2020 with cough and fever. Found to be septic on arrival with suspected aspiration pneumonia. 1. Sepsis due to Aspiration Pneumonia: sepsis was present on admit. Per patient's mother, pt had anepisode of vomiting on 02/10/20 and likely aspirated at that time as they could not suction her quick enough. The following day, she started coughing and was dyspneic. Developed fever on 02/12/20. CXR on admit limited due to pt's position, showed small amount of bibasilar atelectasis vs early infiltrates. U/A on admit positive for infection, however has chronic sage. Urine culture 02/13/20 in process. Blood cultures x2 02/12/20 negative to date. Empiric zosyn/vanco, transitioned to rocephin on 02/13/20. 2. Lactic Acidosis: with lactate 4.0 on admit. Resolved with IV fluids/abx. 3. Chronic Hypoxic Respiratory Failure: on 4-5 L O2 via NC. Stable on admission. Maximize pulmonarytoilet. 4. Spastic Cerebral Palsy: complicated by quadriplegia, seizures, decubitus ulcers, and dysphagia. Nonverbal at baseline, but able to communicate via blinking. Has intrathecal baclofen pump (filled last week). 5. Chronic Seizures: per hx, continued to have minor breakthrough seizure despite compliance with multiple AEDs. No major recent seizures. Continued lamictal, keppra, and CBD oil (provided by pt's mother), with PRN valium. 6. Chronic Wound: due to pressure injury POA. Has wound VAC in place. Follows with wound care clinic. Held home suppressive doxycycline while on IV antibiotic, resume when able. ET RN following. 7. Chronic Dysphagia: as above, PEG tube in place, resumed tube feeding. Captain Waiter/Waitress following. 8. Chronic Urinary Retention: as above, chronic sage in place, exchanged by mother at home, requested exchange while inpatient. 9. Code Status: full code per discussion with mother on admit. 10. DVT Prophylaxis: heparin SQ. Mother (Peg) # [phone] Discussed patient's care with her mother at the bedside on 02/13/2020 Current living situation: home with mother Expected Disposition: same Estimated discharge date: 02/15/20 Subjective: Patient new to al 02/13/20. I reviewed chart for all vitals, diagnostic data, and it systems analyst consultant notes.I discussed patient's care with RN, chargeback specialist, Pharmacy, Captain Waiter/Waitress, Sas Programmer Analyst, and Corporate Communications Specialist. Patient with no acute events overnight. She was resting comfortably. At baseline O2 requirements. Physical Exam: BP 100/69 (BP Location: Left arm, Patient Position: Lying) Pulse (!) 114 Temp 100.4 F (38 C) (Oral) Resp (!) 20 Ht 4' 5 Wt 37.6 kg (83 lb) SpO2 97% BMI 20.77 kg/m General: in NAD, resting comfortably Eyes: EOMI, anicteric ENT: neck supple, nasal cannula in place Cardiovascular: regular rate and rhythm, no peripheral edema Respiratory: clear to auscultation b/L; mild bibasilar crackles Gastrointestinal: soft, non-distended, PEG tube in place Genitourinary: no suprapubic tenderness, sage in place Musculoskeletal: no joint edema, multiple bony deformities Skin: warm, dry Neuro: non-verbal, no gross focal deficits Psych: unable to fully assess Current Medications: acetylcysteine 4 mL Nebulization Q4H ISSAC cannabidioL 3.2 mL Tube BID heparin (porcine) 5,000 Units Subcutaneous Q8H ISSAC ipratropium-albuteroL 3 mL Inhalation Q4H ISSAC lamoTRIgine 100 mg Tube BID lamoTRIgine 150 mg Tube BID levETIRAcetam 1,000 mg Tube BID loratadine 10 mg Tube QAM montelukast 10 mg Tube Daily pantoprazole 40 mg Tube Daily piperacillin-tazobactam (ZOSYN) extended infusion 3.375 g Intravenous Q8H polyethylene glycol 17 g Tube QAM Labs, Imaging and Studies reviewed: Results from last 7 days Lab Units 02/13/20 0312 02/12/20 1414 WBC K/mcL 12.62* 18.37* HGB g/dL 8.8* 11.7* HCT % 30.2* 40.2 PLT K/mcL 296 238 Results from last 7 days Lab Units 02/13/20 0312 02/12/20 1414 SODIUM mmol/L 145 144 POTASSIUM mmol/L 2.8* 3.6 CHLORIDE mmol/L 109* 97* BICARB mmol/L 27 35* BUN mg/dL 9 19 CREATININE mg/dL 0.24* 0.33* EGFR mL/min/1.73 m2 167 150 GLUCOSE mg/dL 93 135* CALCIUM mg/dL 8.6 -- Results from last 7 days Lab Units 02/12/20 1414 ALT U/L 35 AST U/L 21 ALK PHOS U/L 254* BILIRUBIN TOTAL mg/dL 0.3 * Elroy Xie RPh,PharmD - 02/12/2020 7:14 PM EDT PHARMACOTHERAPY NOTE: Antimicrobial Therapy Initiation Assessment / Plan: Claudine Joseph is a 29 y.o. female initiated on antimicrobial therapy for sepsis. Patient initiated on Zosyn and Vancomycin Vancomycin trough goal is 15-20 mcg/mL. Will obtain level when at steady state or when clinically appropriate. Will monitor serum creatinine levels and urine output (if available) daily. Pharmacy will continue to follow, order levels, and make adjustments as needed. Please call pharmacy with questions. Current antibiotic regimen includes: Zosyn 4.5 gm IV x 1 followed by 3.375 gm IV Q8hr Vancomycin 750 mg IV Q12hr Objective: Ht Readings from Last 1 Encounters: 02/12/20 4' 5 (134.6 cm) Wt Readings from Last 1 Encounters: 02/12/20 37.6 kg (83 lb) [place] body weight: 39.4 kg (86 lb 12.3 oz) Labs include: WBC (K/mcL) Date Value 02/12/2020 18.37 (H) 04/22/2017 11.6 (H) Creatinine (mg/dL) Date Value 02/12/2020 0.33 (L) 04/22/2017 0.44 Estimated Creatinine Clearance: 149.3 mL/min (A) (by C-G formula based on SCr of 0.33 mg/dL (L)). Patient Tmax (last 24 hours): 99.3 F . Micro: COVID negative, urine and blood cultures pending Pharmacist: Elroy Xie RPh,PharmD, [facility] Contact Number: [phone] documented in this encounter* Ruma Godwin CNP - 05/29/2020 2:54 PM EDT [facility] Spasticity Clinic: Intrathecal Baclofen Therapy Progress Note 05/30/2020 CHIEF COMPLAINT Spasticity follow up from 02/08/2020 IMPRESSIONS AT LAST VISIT / INTERM HISTORY Claudine Joseph is a 29 y/o female with medically refractory, severe spasticity secondary to CP managed with intrathecal baclofen therapy. Claudine by clinical history and exam remains stable. We refilled her pump and maintained her current dose. She unfortunately developed a pressure ulcer right gluteal fold being managed by wound vac. Based on today s history, physical examination and review of ITB telemetry, I feel her severe spasticity is active and negatively impact QoL / ADLs / vocation. Current ITB goals include: decrease cramps and spasms, spasticity related pains, loosen thelegs, loosen the arms, improve options for seating and positioning, help prevent contractures and bed sores, improve caregiver ease of care Other associated diagnoses / active problems for this visit include: weakness, spasticity, requireswheelchair / scooter for mobility, decubitus ulcer. CONTEMOPORARY HISTORY Claudine presents to clinic with her Mom Peg for ITB pump refill. Claudine started vomiting in the car on her way to the appointment. Peg reports no recent fever orillness. Unfortunately, she does not have her phenergan with her. She was hospitalized for UTI and then Urosepsis since last visit. Peg reports wound is almost healed. Overall she / her farm or ranch animal caretaker reports that her spasticity is under good control. OTHER RELEVANT HISTORY [facility] ROS No documentation. She has a past medical history of Acute respiratory failure ([facility]), Allergic rhinitis, Anoxic brain damage ([facility]), Aspiration, chronic pulmonary, Bowel and bladder incontinence, Cerebral palsy ([facility]), Chronic osteomyelitis of pelvic region, right ([facility]) (2018), Chronic respiratory failure with hypoxia ([facility]), Constipation, Epilepsy ([facility]), GERD (gastroesophageal reflux disease), MRSA (methicillin resistant Staphylococcus aureus) (04/2016), Muscle spasticity, Nonverbal, PEG (percutaneous endoscopic gastrostomy) status ([facility]), Presence of intrathecal baclofen pump (1999), Restrictive lung disease due to kyphoscoliosis, Urine retention, and Wheelchair bound. She has a past surgical history that includes Peg Tube Insertion; Baclofen pump implantation; Salivary gland surgery; Back surgery (1999); Cholecystectomy; Pain Pump Revision (N/A, 07/27/2016); Laminectomy Decomp Thoracic Multi Level (N/A, 07/27/2016); and Incision And Drainage Lower Extremity (Right, 12/02/2018). She reports that she has never smoked. She has never used smokeless tobacco. She reports that she does not drink alcohol or use drugs. Social History Social History Narrative Not on file She She was adopted. Family history is unknown by patient. Allergies Allergen Reactions Levaquin [Levofloxacin] Rash, flushing with RUE arm swelling. Augmentin [Amoxicillin-Pot Clavulanate] Rash Per mother- tolerates Zosyn, unable to tolerate amoxil (blisters upper extremity) Lactose Intolerance [Lactase] Penicillins Other (See Comments) Blisters- amoxil Ragweed Unknown She has a current medication list which includes the following prescription(s): acetaminophen, baclofen, epidiolex, cholecalciferol (vitamin d3), diazepam, fluticasone propionate, guaifenesin, ipratropium, lamotrigine, lamotrigine, levetiracetam, loratadine, medroxyprogesterone, metoprolol succinate, montelukast, multivitamin/iron/folic acid, omeprazole, polyethylene glycol, promethazine, and whey protein isolate. PHYSICAL EXAMINATION Vital Signs: Blood pressure 112/70, pulse (!) 103. General Appearance: dry heaving and moaning. Eyes: Anicteric sclerae. Moist conjunctivae. No lid edema noted. HENT: Head atraumatic, normocephalic. Oropharynx clear. Moist mucous membranes. Neck/ Thyroid:trachea midline. Supple. No massess. No thyromegaly. Lungs: Normal respiratory effort. No intercostal retractions. No dyspnea during conversation. Abdomen: soft, non-distended Extremities: no clubbing, cyanosis, pedal edema, ulcer nor wound noted. Skin: warm, dry, no rash, no ecchymoses, no petechiae noted NEUROLOGICAL EXAMINATION Mental Status - awake, vomiting and dry heaving Modified Estefani Score: EE EF Hip add KE KF DF PF Right 2 1 0 0 Left 1 0 0 0 Wheelchair bound ITB TELEMETRY and OTHER DATA I have independently reviewed the ITB pump system telemetry. ASSESSMENT Claudine Joseph is a 30 y/o female with medically refractory, severe spasticity secondaryto CP managed with intrathecal baclofen therapy. Claudine is vomiting during visit today. Her exam remains stable. We refilled her pump and maintained her current dose. Based on today s history, physical examination and review of ITB telemetry, I feel her severe spasticity is under good control. Current ITB goals include: decrease cramps and spasms, spasticity related pains, loosen thelegs, loosen the arms, improve options for seating and positioning, help prevent contractures and bed sores, improve caregiver ease of care Other associated diagnoses / active problems for this visit include: weakness, spasticity, requireswheelchair / scooter for mobility, decubitus ulcer, nausea/vomiting. 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 Roxy RENE date: 35 months (March 2023) Synchromed I IPump Size: 40 mL Willard Location: 11 oclock Catheter Tip Placement: PLAN REGARDING INTRATHECAL BACLOFEN THERAPY First Medication Brand: LIORESAL Concentration: 2000 mcg/mL Total Daily Dose: 649.8 mcg/day 1. Pump Programming: Simple Continuous 2. Pump Esto Refill: The injection site was prepped sterilely, landmarks were identified, and the pump was accessed with a coring needle. Approximately 5 (calculated 3.7) cc of clear, colorless fluid was removed from the reservoir. The reservoir was then refilled with 40 ml of 2000mcg/ml baclofen for intrathecal administration. No difficulties were noted, and the pressure was within acceptable limits. kit # 8566: concentration 2000 mcg/ml, volume 40 ml was used. 3. Programming Adjustments today: None; refill only 4. ITB system Procedures today: pump computer interrogation, pump computer reprogramming and pump reservoir refill 5. Last reservoir refill date: 05/30/20 6. Pump Low Esto Alarm Date: 09/23/20 7. Claudine Joseph and/or her caregivers have verbal consents to all of the ITB system adjustments and procedures performed today PLAN REGARDING ADJUNCTIVE SPASTICITY THERAPIES 1. Noxious stimulation worsens spasticity. This included when the weather is cold outside, urinary tract infections and other infections, pressure sores, poor seating or sleeping ergonomics, constipation and urinary retention. she is encouraged to report any of these symptoms. 2. We recommend practicing good spasticity hygiene: A. Stretch upon waking, partway through the day, and before bed every day B. Stay adequately hydrated C. Treat constipation, urinary retention, bladder infections D. Check dependant areas of the body every day for redness / skin breakdown E. Exercise! Movement is camejo. Try yoga, magan chi, or water aerobics. D. Stop to stretch during long periods of sitting (long car ride, business meeting) F. Don't get too cool. Cold often worsens spasticity. PLAN REGARDING FOLLOW UP 1. We will schedule follow up a week before her alarm date, which is 09/23/2020. 2. I strongly recommend that she keep an up-to-date emergency bottle of oral baclofen with her atall times to take for withdrawal symptoms. 3. I also recommend that she keep her [employer] identification card with our clinic contact information at all times. 4. Dr. Ngo can be reached for emergencies and after hours by calling the [facility] at PATIENT AND CARE PROVIDER EDUCATION You can learn more about spasticity and ITB therapy at the following website: [email or web address] If you have a smart phone then we recommend you download the free pump partner application as well. It is a resource for ITB education and tracking your personalized therapy. SYNCHROMED II ITB SYSTEM The intrathecal baclofen pump system is the way our treatment team gives baclofen directly into thespinal fluid. The system consists of a catheter (a small, flexible tube) and a pump. The pump -- a round metal disc, about one inch thick and three inches in diameter -- is surgically placed under the skin of the abdomen near the waistline. The pump stores and releases prescribed amounts of medicine through the cathete directly to the spinal fluid. With a programmable pump, a tiny motor moves themedication from the pump reservoir through the catheter. Using an external it programmer analyst, your treatment team can make adjustments in the dose, rate, and timing of the medication. Continuously delivers baclofen in small doses directly to the spinal fluid, increasing the therapeutic benefits and causing fewer and less severe side effects than the oral medication. Patients with a pump must return to their doctor's office for pump refills and medication adjustments, typically every 1-3 months. ITB SYSTEM MAINTENANCE AND REPAIR The catheter may kink, break or dislodge in up to 10% of cases and would require a surgery to revise it. The Synchromed II pump requires replacement for end of battery life within 7 years. This will require a surgery. The catheter is not required to be replaced, just the pump. INTRATHECAL BACLOFEN WITHDRAWAL Signs and symptoms of baclofen withdrawal often include diffuse body itching, increased stiffness and fever. I have reminded her to take 20mg of oral baclofen and contact our office if she has these symptoms. she may need to be seen in the emergency department. The baclofen withdrawal syndrome can progress to include confusion, sedation and even coma. In severe cases baclofen withdrawal can lead to kidney damage, seizures and possibly . A lumbar puncture with an injection of 50mcg intrathecal baclofen in the emergency department is often the best treatment to address severe balcofen withdrawal symptoms. INTRATHECAL BACLOFEN OVERDOSE Signs and symptoms of baclofen overdose often include sedation and confusion and most commonly occur recently following an ITB refill/program adjustment. I recommend Claudine Joseph contactour office prompts if these symptoms occur. The baclofen overdose syndrome can progress to include coma, seizures, respiratory and cardiac depression and possibly . I have reminded her to contact our office and go to the emergency room if she experiences these symptoms. A high volume lumbar puncture (removing 40cc of both CSF and intrathecal baclofen) in the emergency department is often thebest treatment for severe baclofen overdose symptoms. ITB SYSTEM INFECTION Infection of the pump system can lead to meningitis (severe brain infection) and can be possibly fatal. Signs and symptoms of pump infection can include redness, swelling, or pain around the pump or surgical scar on the back. Fever and a stiff neck are also common. I recommend that Claudine Joseph go to the Emergency Department if she has any of signs/symptoms of pump infection. MRI SCANNING Synchromed II ITB pumps are MRI compatible including 3T strength scanners. The pump stops pumping temporarily when the patient is moved near the MRI machine. The pump automatically restarts once the patient moves away from the MRI machine. We follow a clinic best practice of interrogating the pump following MRI scans to ensure the ITB pump has restarted. This can often be arranged to be done by [employer] And Event [employer] if scheduled during business hours. We recommend AGAINST any MRI scans scheduled outside of business hours. EDUCATION: HOT TUBs, STEAM ROOMS, SAUNAS AND TANNING BED We recommend patients avoid these, especially if over 102 degrees. Heating up your body causes the ITB pump to potential increase its flow rate, which could cause overdose/. EDUCATION: SCUBA DIVING We recommend that an ITB patient avoid depths below 33 feet (10 meters). Diving lower than this could permanently damage the pump. Also as you descend and the pressure around your body increases, pump flow can decrease. This could lead to baclofen withdrawal/. EDUCATION REGARDING DAYLIGHT SAVINGS TIME The clock inside the pump does not adjust for daylight savings time changes (spring forward and fall backwards). If you are on flex dosing or bolus dosing programming then your dosing will becomeshifted an hour, which may cause problems for the patient. The pump clock only corrects for daylight savings time after being interrogated by a it programmer analyst. The flex/bolus dosing patient should schedule a visit after a time change to reset their pump clocks. I spent 30 minutes face to face with the patient today. Over half the time was spent counseling regarding her spasticity as well as it's underlying medical condition, as well as her coordinating care.Thank you very much for allowing me to participate in this patient's care and please do not hesitate to contact me with questions or concerns. Sincerely, Ruma Godwin MS, BSN, ACNP-BC, CNRN Acute Care Nurse Practitioner [facility] [address] [place] [address], [id number] [place] [address] [email or web address] Office [phone] documented in this encounter* Ruma Godwin CNP - 09/18/2020 9:48 PM EST [facility] Spasticity Clinic: Intrathecal Baclofen Therapy Progress Note 09/19/2020 CHIEF COMPLAINT Spasticity follow up from 05/30/2020 IMPRESSIONS AT LAST VISIT / INTERM HISTORY Claudine Joseph is a 30 y/o female with medically refractory, severe spasticity secondary to CP managed with intrathecal baclofen therapy. Claudine is vomiting during visit today. Her exam remains stable. We refilled her pump and maintained her current dose. Based on today s history, physical examination and review of ITB telemetry, I feel her severe spasticity is under good control. Current ITB goals include: decrease cramps and spasms, spasticity related pains, loosen thelegs, loosen the arms, improve options for seating and positioning, help prevent contractures and bed sores, improve caregiver ease of care Other associated diagnoses / active problems for this visit include: weakness, spasticity, requireswheelchair / scooter for mobility, decubitus ulcer, nausea/vomiting. CONTEMOPORARY HISTORY Claudine presents to clinic with her mom Peg for ITB pump refill. Mom reports she is cranky today. Peg states is much more alert since change is anti-epileptic medication. OTHER RELEVANT HISTORY [facility] She has a past medical history of Acute respiratory failure ([facility]), Allergic rhinitis, Anoxic brain damage ([facility]), Aspiration, chronic pulmonary, Bowel and bladder incontinence, Cerebral palsy ([facility]), Chronic osteomyelitis of pelvic region, right ([facility]) (2018), Chronic respiratory failure with hypoxia ([facility]), Constipation, Epilepsy ([facility]), GERD (gastroesophageal reflux disease), MRSA (methicillin resistant Staphylococcus aureus) (04/2016), Muscle spasticity, Nonverbal, PEG (percutaneous endoscopic gastrostomy) status ([facility]), Presence of intrathecal baclofen pump (1999), Restrictive lung disease due to kyphoscoliosis, Urine retention, and Wheelchair bound. She has a past surgical history that includes Peg Tube Insertion; Baclofen pump implantation; Salivary gland surgery; Back surgery (1999); Cholecystectomy; Pain Pump Revision (N/A, 07/27/2016); Laminectomy Decomp Thoracic Multi Level (N/A, 07/27/2016); and Incision And Drainage Lower Extremity (Right, 12/02/2018). She reports that she has never smoked. She has never used smokeless tobacco. She reports that she does not drink alcohol or use drugs. Social History Social History Narrative Not on file She She was adopted. Family history is unknown by patient. Allergies Allergen Reactions Levaquin [Levofloxacin] Rash, flushing with RUE arm swelling. Augmentin [Amoxicillin-Pot Clavulanate] Rash Per mother- tolerates Zosyn, unable to tolerate amoxil (blisters upper extremity) Lactose Intolerance [Lactase] Penicillins Other (See Comments) Blisters- amoxil Ragweed Unknown She has a current medication list which includes the following prescription(s): acetaminophen, baclofen, epidiolex, cholecalciferol (vitamin d3), diazepam, doxycycline hyclate, fluticasone propionate, guaifenesin, ipratropium, lamotrigine, lamotrigine, levetiracetam, loratadine, medroxyprogesterone, metoprolol succinate, montelukast, multivitamin/iron/folic acid, omeprazole, polyethylene glycol, and promethazine. PHYSICAL EXAMINATION Vital Signs: Blood pressure 123/85, pulse (!) 118. General Appearance: in no apparent distress Eyes: Anicteric sclerae. Moist conjunctivae. No lid edema noted. HENT: Head atraumatic, normocephalic. Oropharynx clear. Moist mucous membranes. Neck/ Thyroid:trachea midline. Supple. No massess. No thyromegaly. Lungs: Normal respiratory effort. No intercostal retractions. No dyspnea during conversation. Abdomen: soft, non-distended Extremities: no clubbing, cyanosis, pedal edema, ulcer nor wound noted. Skin: warm, dry, no rash, no ecchymoses, no petechiae noted NEUROLOGICAL EXAMINATION Mental Status is awake and tracking examiner, non verbal Modified Estefani Score: EE EF Hip add KE KF DF PF Right 2* 1 0 0 Left 1* 0 0 0 * limited ROM across elbows Wheelchair bound ITB TELEMETRY and OTHER DATA I have independently reviewed the ITB pump system telemetry. ASSESSMENT Claudine Joseph is a 30 y/o female with medically refractory, severe spasticity secondaryto CP managed with intrathecal baclofen therapy. We refilled her pump and maintained her current dose. Based on today s history, physical examination and review of ITB telemetry, I feel her severe spasticity is under good control. Current ITB goals include: decrease cramps and spasms, spasticity related pains, loosen thelegs, loosen the arms, improve options for seating and positioning, help prevent contractures and bed sores, improve caregiver ease of care Other associated diagnoses / active problems for this visit include: weakness, spasticity, requireswheelchair / scooter for mobility, decubitus ulcer, nausea/vomiting. 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 Roxy RENE date: 32 months (March 2023) Synchromed I IPump Size: 40 mL Willard Location: 11 oclock Catheter Tip Placement: PLAN REGARDING INTRATHECAL BACLOFEN THERAPY First Medication Brand: LIORESAL Concentration: 2000 mcg/mL Total Daily Dose: 649.8 mcg/day 1. Pump Programming: Simple Continuous 2. Pump Esto Refill: The injection site was prepped sterilely, landmarks were identified, and the pump was accessed with a coring needle. Approximately 5 (calculated 3.7) cc of clear, colorless fluid was removed from the reservoir. The reservoir was then refilled with 40 ml of 2000mcg/ml baclofen for intrathecal administration. No difficulties were noted, and the pressure was within acceptable limits. kit # 8566: concentration 2000 mcg/ml, volume 40 ml was used. 3. Programming Adjustments today: None; refill only 4. ITB system Procedures today: pump computer interrogation, pump computer reprogramming and pump reservoir refill 5. Last reservoir refill date: 09/19/20 6. Pump Low Esto Alarm Date: 01/13/21 7. Claudine Joseph and/or her caregivers have verbal consents to all of the ITB system adjustments and procedures performed today PLAN REGARDING ADJUNCTIVE SPASTICITY THERAPIES 1. Noxious stimulation worsens spasticity. This included when the weather is cold outside, urinary tract infections and other infections, pressure sores, poor seating or sleeping ergonomics, constipation and urinary retention. she is encouraged to report any of these symptoms. 2. We recommend practicing good spasticity hygiene: A. Stretch upon waking, partway through the day, and before bed every day B. Stay adequately hydrated C. Treat constipation, urinary retention, bladder infections D. Check dependant areas of the body every day for redness / skin breakdown E. Exercise! Movement is camejo. Try yoga, magan chi, or water aerobics. D. Stop to stretch during long periods of sitting (long car ride, business meeting) F. Don't get too cool. Cold often worsens spasticity. PLAN REGARDING FOLLOW UP 1. We will schedule follow up a week before her alarm date, which is 01/13/2021. 2. I strongly recommend that she keep an up-to-date emergency bottle of oral baclofen with her atall times to take for withdrawal symptoms. 3. I also recommend that she keep her [employer] identification card with our clinic contact information at all times. 4. [facility] Team can be reached for emergencies and after hours by calling the [facility] at PATIENT AND CARE PROVIDER EDUCATION You can learn more about spasticity and ITB therapy at the following website: [email or web address] If you have a smart phone then we recommend you download the free pump partner application as well. It is a resource for ITB education and tracking your personalized therapy. SYNCHROMED II ITB SYSTEM The intrathecal baclofen pump system is the way our treatment team gives baclofen directly into thespinal fluid. The system consists of a catheter (a small, flexible tube) and a pump. The pump -- a round metal disc, about one inch thick and three inches in diameter -- is surgically placed under the skin of the abdomen near the waistline. The pump stores and releases prescribed amounts of medicine through the cathete directly to the spinal fluid. With a programmable pump, a tiny motor moves themedication from the pump reservoir through the catheter. Using an external it programmer analyst, your treatment team can make adjustments in the dose, rate, and timing of the medication. Continuously delivers baclofen in small doses directly to the spinal fluid, increasing the therapeutic benefits and causing fewer and less severe side effects than the oral medication. Patients with a pump must return to their doctor's office for pump refills and medication adjustments, typically every 1-3 months. ITB SYSTEM MAINTENANCE AND REPAIR The catheter may kink, break or dislodge in up to 10% of cases and would require a surgery to revise it. The Synchromed II pump requires replacement for end of battery life within 7 years. This will require a surgery. The catheter is not required to be replaced, just the pump. INTRATHECAL BACLOFEN WITHDRAWAL Signs and symptoms of baclofen withdrawal often include diffuse body itching, increased stiffness and fever. I have reminded her to take 20mg of oral baclofen and contact our office if she has these symptoms. she may need to be seen in the emergency department. The baclofen withdrawal syndrome can progress to include confusion, sedation and even coma. In severe cases baclofen withdrawal can lead to kidney damage, seizures and possibly . A lumbar puncture with an injection of 50mcg intrathecal baclofen in the emergency department is often the best treatment to address severe balcofen withdrawal symptoms. INTRATHECAL BACLOFEN OVERDOSE Signs and symptoms of baclofen overdose often include sedation and confusion and most commonly occur recently following an ITB refill/program adjustment. I recommend Claudine Siena Joseph contactour office prompts if these symptoms occur. The baclofen overdose syndrome can progress to include coma, seizures, respiratory and cardiac depression and possibly . I have reminded her to contact our office and go to the emergency room if she experiences these symptoms. A high volume lumbar puncture (removing 40cc of both CSF and intrathecal baclofen) in the emergency department is often thebest treatment for severe baclofen overdose symptoms. ITB SYSTEM INFECTION Infection of the pump system can lead to meningitis (severe brain infection) and can be possibly fatal. Signs and symptoms of pump infection can include redness, swelling, or pain around the pump or surgical scar on the back. Fever and a stiff neck are also common. I recommend that Claudine Joseph go to the Emergency Department if she has any of signs/symptoms of pump infection. MRI SCANNING Synchromed II ITB pumps are MRI compatible including 3T strength scanners. The pump stops pumping temporarily when the patient is moved near the MRI machine. The pump automatically restarts once the patient moves away from the MRI machine. We follow a clinic best practice of interrogating the pump following MRI scans to ensure the ITB pump has restarted. This can often be arranged to be done by [employer] Event Organ[employer] if scheduled during business hours. We recommend AGAINST any MRI scans scheduled outside of business hours. EDUCATION: HOT TUBs, STEAM ROOMS, SAUNAS AND TANNING BED We recommend patients avoid these, especially if over 102 degrees. Heating up your body causes the ITB pump to potential increase its flow rate, which could cause overdose/. EDUCATION: SCUBA DIVING We recommend that an ITB patient avoid depths below 33 feet (10 meters). Diving lower than this could permanently damage the pump. Also as you descend and the pressure around your body increases, pump flow can decrease. This could lead to baclofen withdrawal/. EDUCATION REGARDING DAYLIGHT SAVINGS TIME The clock inside the pump does not adjust for daylight savings time changes (spring forward and fall backwards). If you are on flex dosing or bolus dosing programming then your dosing will becomeshifted an hour, which may cause problems for the patient. The pump clock only corrects for daylight savings time after being interrogated by a it programmer analyst. The flex/bolus dosing patient should schedule a visit after a time change to reset their pump clocks. I spent 30 minutes face to face with the patient today. Over half the time was spent counseling regarding her spasticity as well as it's underlying medical condition, as well as her coordinating care.Thank you very much for allowing me to participate in this patient's care and please do not hesitate to contact me with questions or concerns. Sincerely, Ruma Godwin MS, BSN, ACNP-BC, CNRN Acute Care Nurse Practitioner [facility] [address] [place], [address] [place] [address] Office [phone] documented in this encounter* Ruma Godwin CNP - 09/18/2020 9:48 PM EST [facility]: Intrathecal Baclofen Therapy Progress Note 09/19/2020 CHIEF COMPLAINT Spasticity follow up from 05/30/2020 IMPRESSIONS AT LAST VISIT / INTERM HISTORY Claudine Joseph is a 30 y/o female with medically refractory, severe spasticity secondary to CP managed with intrathecal baclofen therapy. Claudine is vomiting during visit today. Her exam remains stable. We refilled her pump and maintained her current dose. Based on today s history, physical examination and review of ITB telemetry, I feel her severe spasticity is under good control. Current ITB goals include: decrease cramps and spasms, spasticity related pains, loosen thelegs, loosen the arms, improve options for seating and positioning, help prevent contractures and bed sores, improve caregiver ease of care Other associated diagnoses / active problems for this visit include: weakness, spasticity, requireswheelchair / scooter for mobility, decubitus ulcer, nausea/vomiting. CONTEMOPORARY HISTORY Claudine presents to clinic with her mom Peg for ITB pump refill. Mom reports she is cranky today. Peg states is much more alert since change is anti-epileptic medication. OTHER RELEVANT HISTORY [facility] ROS [place] She has a past medical history of Acute respiratory failure (HCC), Allergic rhinitis, Anoxic brain damage (HCC), Aspiration, chronic pulmonary, Bowel and bladder incontinence, Cerebral palsy (HCC), Chronic osteomyelitis of pelvic region, right (HCC) (2018), Chronic respiratory failure with hypoxia (HCC), Constipation, Epilepsy (HCC), GERD (gastroesophageal reflux disease), MRSA (methicillin resistant Staphylococcus aureus) (04/2016), Muscle spasticity, Nonverbal, PEG (percutaneous endoscopic gastrostomy) status ([facility]), Presence of intrathecal baclofen pump (1999), Restrictive lung disease due to kyphoscoliosis, Urine retention, and Wheelchair bound. She has a past surgical history that includes Peg Tube Insertion; Baclofen pump implantation; Salivary gland surgery; Back surgery (1999); Cholecystectomy; Pain Pump Revision (N/A, 07/27/2016); Laminectomy Decomp Thoracic Multi Level (N/A, 07/27/2016); and Incision And Drainage Lower Extremity (Right, 12/02/2018). She reports that she has never smoked. She has never used smokeless tobacco. She reports that she does not drink alcohol or use drugs. Social History Social History Narrative Not on file She She was adopted. Family history is unknown by patient. Allergies Allergen Reactions Levaquin [Levofloxacin] Rash, flushing with RUE arm swelling. Augmentin [Amoxicillin-Pot Clavulanate] Rash Per mother- tolerates Zosyn, unable to tolerate amoxil (blisters upper extremity) Lactose Intolerance [Lactase] Penicillins Other (See Comments) Blisters- amoxil Ragweed Unknown She has a current medication list which includes the following prescription(s): acetaminophen, baclofen, epidiolex, cholecalciferol (vitamin d3), diazepam, doxycycline hyclate, fluticasone propionate, guaifenesin, ipratropium, lamotrigine, lamotrigine, levetiracetam, loratadine, medroxyprogesterone, metoprolol succinate, montelukast, multivitamin/iron/folic acid, omeprazole, polyethylene glycol, and promethazine. PHYSICAL EXAMINATION Vital Signs: Blood pressure 123/85, pulse (!) 118. General Appearance: in no apparent distress Eyes: Anicteric sclerae. Moist conjunctivae. No lid edema noted. HENT: Head atraumatic, normocephalic. Oropharynx clear. Moist mucous membranes. Neck/ Thyroid:trachea midline. Supple. No massess. No thyromegaly. Lungs: Normal respiratory effort. No intercostal retractions. No dyspnea during conversation. Abdomen: soft, non-distended Extremities: no clubbing, cyanosis, pedal edema, ulcer nor wound noted. Skin: warm, dry, no rash, no ecchymoses, no petechiae noted NEUROLOGICAL EXAMINATION Mental Status is awake and tracking examiner, non verbal Modified Estefani Score: EE EF Hip add KE KF DF PF Right 2* 1 0 0 Left 1* 0 0 0 * limited ROM across elbows Wheelchair bound ITB TELEMETRY and OTHER DATA I have independently reviewed the ITB pump system telemetry. ASSESSMENT Claudine Joseph is a 30 y/o female with medically refractory, severe spasticity secondaryto CP managed with intrathecal baclofen therapy. We refilled her pump and maintained her current dose. Based on today s history, physical examination and review of ITB telemetry, I feel her severe spasticity is under good control. Current ITB goals include: decrease cramps and spasms, spasticity related pains, loosen thelegs, loosen the arms, improve options for seating and positioning, help prevent contractures and bed sores, improve caregiver ease of care Other associated diagnoses / active problems for this visit include: weakness, spasticity, requireswheelchair / scooter for mobility, decubitus ulcer, nausea/vomiting. 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 Roxy RENE date: 32 months (March 2023) Synchromed I IPump Size: 40 mL Willard Location: 11 oclock Catheter Tip Placement: PLAN REGARDING INTRATHECAL BACLOFEN THERAPY First Medication Brand: LIORESAL Concentration: 2000 mcg/mL Total Daily Dose: 649.8 mcg/day 1. Pump Programming: Simple Continuous 2. Pump Esto Refill: The injection site was prepped sterilely, landmarks were identified, and the pump was accessed with a coring needle. Approximately 5 (calculated 3.7) cc of clear, colorless fluid was removed from the reservoir. The reservoir was then refilled with 40 ml of 2000mcg/ml baclofen for intrathecal administration. No difficulties were noted, and the pressure was within acceptable limits. kit # 8566: concentration 2000 mcg/ml, volume 40 ml was used. 3. Programming Adjustments today: None; refill only 4. ITB system Procedures today: pump computer interrogation, pump computer reprogramming and pump reservoir refill 5. Last reservoir refill date: 09/19/20 6. Pump Low Esto Alarm Date: 01/13/21 7. Claudine Joseph and/or her caregivers have verbal consents to all of the ITB system adjustments and procedures performed today PLAN REGARDING ADJUNCTIVE SPASTICITY THERAPIES 1. Noxious stimulation worsens spasticity. This included when the weather is cold outside, urinary tract infections and other infections, pressure sores, poor seating or sleeping ergonomics, constipation and urinary retention. she is encouraged to report any of these symptoms. 2. We recommend practicing good spasticity hygiene: A. Stretch upon waking, partway through the day, and before bed every day B. Stay adequately hydrated C. Treat constipation, urinary retention, bladder infections D. Check dependant areas of the body every day for redness / skin breakdown E. Exercise! Movement is camejo. Try yoga, magan chi, or water aerobics. D. Stop to stretch during long periods of sitting (long car ride, business meeting) F. Don't get too cool. Cold often worsens spasticity. PLAN REGARDING FOLLOW UP 1. We will schedule follow up a week before her alarm date, which is 01/13/2021. 2. I strongly recommend that she keep an up-to-date emergency bottle of oral baclofen with her atall times to take for withdrawal symptoms. 3. I also recommend that she keep her [employer] identification card with our clinic contact information at all times. 4. [facility] Team can be reached for emergencies and after hours by calling the [facility] at PATIENT AND CARE PROVIDER EDUCATION You can learn more about spasticity and ITB therapy at the following website: [email or web address] If you have a smart phone then we recommend you download the free pump partner application as well. It is a resource for ITB education and tracking your personalized therapy. SYNCHROMED II ITB SYSTEM The intrathecal baclofen pump system is the way our treatment team gives baclofen directly into thespinal fluid. The system consists of a catheter (a small, flexible tube) and a pump. The pump -- a round metal disc, about one inch thick and three inches in diameter -- is surgically placed under the skin of the abdomen near the waistline. The pump stores and releases prescribed amounts of medicine through the cathete directly to the spinal fluid. With a programmable pump, a tiny motor moves themedication from the pump reservoir through the catheter. Using an external it programmer analyst, your treatment team can make adjustments in the dose, rate, and timing of the medication. Continuously delivers baclofen in small doses directly to the spinal fluid, increasing the therapeutic benefits and causing fewer and less severe side effects than the oral medication. Patients with a pump must return to their doctor's office for pump refills and medication adjustments, typically every 1-3 months. ITB SYSTEM MAINTENANCE AND REPAIR The catheter may kink, break or dislodge in up to 10% of cases and would require a surgery to revise it. The Synchromed II pump requires replacement for end of battery life within 7 years. This will require a surgery. The catheter is not required to be replaced, just the pump. INTRATHECAL BACLOFEN WITHDRAWAL Signs and symptoms of baclofen withdrawal often include diffuse body itching, increased stiffness and fever. I have reminded her to take 20mg of oral baclofen and contact our office if she has these symptoms. she may need to be seen in the emergency department. The baclofen withdrawal syndrome can progress to include confusion, sedation and even coma. In severe cases baclofen withdrawal can lead to kidney damage, seizures and possibly . A lumbar puncture with an injection of 50mcg intrathecal baclofen in the emergency department is often the best treatment to address severe balcofen withdrawal symptoms. INTRATHECAL BACLOFEN OVERDOSE Signs and symptoms of baclofen overdose often include sedation and confusion and most commonly occur recently following an ITB refill/program adjustment. I recommend Claudinebirgit Joseph contactour office prompts if these symptoms occur. The baclofen overdose syndrome can progress to include coma, seizures, respiratory and cardiac depression and possibly . I have reminded her to contact our office and go to the emergency room if she experiences these symptoms. A high volume lumbar puncture (removing 40cc of both CSF and intrathecal baclofen) in the emergency department is often thebest treatment for severe baclofen overdose symptoms. ITB SYSTEM INFECTION Infection of the pump system can lead to meningitis (severe brain infection) and can be possibly fatal. Signs and symptoms of pump infection can include redness, swelling, or pain around the pump or surgical scar on the back. Fever and a stiff neck are also common. I recommend that Claudine Siena Joseph go to the Emergency Department if she has any of signs/symptoms of pump infection. MRI SCANNING Synchromed II ITB pumps are MRI compatible including 3T strength scanners. The pump stops pumping temporarily when the patient is moved near the MRI machine. The pump automatically restarts once the patient moves away from the MRI machine. We follow a clinic best practice of interrogating the pump following MRI scans to ensure the ITB pump has restarted. This can often be arranged to be done by [employer] Conference And Event Organiser if scheduled during business hours. We recommend AGAINST any MRI scans scheduled outside of business hours. EDUCATION: HOT TUBs, STEAM ROOMS, SAUNAS AND TANNING BED We recommend patients avoid these, especially if over 102 degrees. Heating up your body causes the ITB pump to potential increase its flow rate, which could cause overdose/. EDUCATION: SCUBA DIVING We recommend that an ITB patient avoid depths below 33 feet (10 meters). Diving lower than this could permanently damage the pump. Also as you descend and the pressure around your body increases, pump flow can decrease. This could lead to baclofen withdrawal/. EDUCATION REGARDING DAYLIGHT SAVINGS TIME The clock inside the pump does not adjust for daylight savings time changes (spring forward and fall backwards). If you are on flex dosing or bolus dosing programming then your dosing will becomeshifted an hour, which may cause problems for the patient. The pump clock only corrects for daylight savings time after being interrogated by a it programmer analyst. The flex/bolus dosing patient should schedule a visit after a time change to reset their pump clocks. I spent 30 minutes face to face with the patient today. Over half the time was spent counseling regarding her spasticity as well as it's underlying medical condition, as well as her coordinating care.Thank you very much for allowing me to participate in this patient's care and please do not hesitate to contact me with questions or concerns. Sincerely, Ruma Godwin MS, BSN, ACNP-BC, CNRN Acute Care Nurse Practitioner [facility] [address], [address] [place] [address] Office [phone] documented in this encounter* Ruma Godwin CNP - 02/08/2020 11:30 AM EDT [facility] Spasticity Clinic: Intrathecal Baclofen Therapy Progress Note 02/08/2020 CHIEF COMPLAINT Spasticity follow up from 10/19/2019 IMPRESSIONS AT LAST VISIT / INTERM HISTORY Claudine Joseph is a 29 y/o female with medically refractory, severe spasticity secondary to CP managed with intrathecal baclofen therapy. Based on today s history, physical examination and review of ITB telemetry, I feel her severe spasticity is active and negatively impact QoL / ADLs /vocation. Current ITB goals include: decrease cramps and spasms, spasticity related pains, loosen thelegs, loosen the arms, improve options for seating and positioning, help prevent contractures and bed sores, improve caregiver ease of care Other associated diagnoses / active problems for this visit include: weakness, spasticity, requireswheelchair / scooter for mobility, decubitus ulcer. CONTEMOPORARY HISTORY Claudine presents to clinic for ITB pump refill. Peg reports new pressure ulcer right gluteal fold has wound vac in place. Denies any infection. No change in spasticity. OTHER RELEVANT HISTORY [facility] ROS - 02/08/20 1105 General Change in weight No Fever No Chills No Night Sweats No Cough No Shortness of Breath No Joint pain / swelling No Muscle pain / cramps No Chest pain No Palpitations No Nausea / Vomiting No Neurologic Double vision No Blurred / decreased vision No Difficulty swallowing Yes Difficulty with speech Yes Numbness / tingling No Painful skin sensations No Muscle weakness Yes Heat sensitivity Yes Motor fatigue No Incoordination/ poor balance Yes Difficulty walking Yes Recent Falls No L'hermitte No Difficulty with thinking and memory No Pathologic fatigue No Depression No Anxiety No Urinary urgency No Urinary frequency No Urinary retention / hesitancy No Recent Urinary Tract Infections No Bowel complaints No Sexual Dysfunction No Poor sleep Yes Headaches No Recent Seizures No She has a past medical history of Acute respiratory failure ([facility]), Allergic rhinitis, Anoxic brain damage ([facility]), Aspiration, chronic pulmonary, Bowel and bladder incontinence, Cerebral palsy ([facility]), Chronic osteomyelitis of pelvic region, right ([facility]) (2018), Chronic respiratory failure with hypoxia ([facility]), Constipation, Epilepsy ([facility]), GERD (gastroesophageal reflux disease), MRSA (methicillin resistant Staphylococcus aureus) (04/2016), Muscle spasticity, Nonverbal, PEG (percutaneous endoscopic gastrostomy) status ([facility]), Presence of intrathecal baclofen pump (1999), Restrictive lung disease due to kyphoscoliosis, Urine retention, and Wheelchair bound. She has a past surgical history that includes Peg Tube Insertion; Baclofen pump implantation; Salivary gland surgery; Back surgery (1999); Cholecystectomy; Pain Pump Revision (N/A, 07/27/2016); Laminectomy Decomp Thoracic Multi Level (N/A, 07/27/2016); and Incision And Drainage Lower Extremity (Right, 12/02/2018). She reports that she has never smoked. She has never used smokeless tobacco. She reports that she does not drink alcohol or use drugs. Social History Social History Narrative Not on file She She was adopted. Family history is unknown by patient. Allergies Allergen Reactions Levaquin [Levofloxacin] Rash, flushing with RUE arm swelling. Augmentin [Amoxicillin-Pot Clavulanate] Rash Lactose Intolerance [Lactase] Penicillins Other (See Comments) Blisters Ragweed Unknown She has a current medication list which includes the following prescription(s): acetaminophen, baclofen, cholecalciferol (vitamin d3), diazepam, epidiolex, fluticasone propionate, guaifenesin, ipratropium, lamotrigine, lamotrigine, levetiracetam, lidocaine-prilocaine, loratadine, medroxyprogesterone, metoprolol succinate, multivitamin, omeprazole, polyethylene glycol, promethazine, beneprotein, baclofen, doxycycline hyclate, and montelukast. PHYSICAL EXAMINATION Vital Signs: Blood pressure 92/63, pulse 73. General Appearance: in no apparent distress Eyes: Anicteric sclerae. Moist conjunctivae. No lid edema noted. HENT: Head atraumatic, normocephalic. Oropharynx clear. Moist mucous membranes. Neck/ Thyroid:trachea midline. Supple. No massess. No thyromegaly. Lungs: Normal respiratory effort. No intercostal retractions. No dyspnea during conversation. Abdomen: soft, non-distended Extremities: no clubbing, cyanosis, pedal edema, ulcer nor wound noted. Skin: warm, dry, no rash, no ecchymoses, no petechiae noted NEUROLOGICAL EXAMINATION Mental Status - awake, tracks arouses to speech. Modified Estefani Score: EE EF Hip add KE KF DF PF Right 2 1 0 0 Left 1 0 0 0 Wheelchair bound ITB TELEMETRY and OTHER DATA I have independently reviewed the ITB pump system telemetry. ASSESSMENT Claudine Joseph is a 29 y/o female with medically refractory, severe spasticity secondaryto CP managed with intrathecal baclofen therapy. Claudine by clinical history and exam remains stable. We refilled her pump and maintained her current dose. She unfortunately developed a pressure ulcer right gluteal fold being managed by wound vac. Based on today s history, physical examination and review of ITB telemetry, I feel her severe spasticity is active and negatively impact QoL / ADLs / vocation. Current ITB goals include: decrease cramps and spasms, spasticity related pains, loosen thelegs, loosen the arms, improve options for seating and positioning, help prevent contractures and bed sores, improve caregiver ease of care Other associated diagnoses / active problems for this visit include: weakness, spasticity, requireswheelchair / scooter for mobility, decubitus ulcer. 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 Roxy RENE date: 39 (March 2023) Synchromed I IPump Size: 40 mL Willard Location: 11 oclock Catheter Tip Placement: PLAN REGARDING INTRATHECAL BACLOFEN THERAPY First Medication Brand: LIORESAL Concentration: 2000 mcg/mL Total Daily Dose: 649.8 mcg/day 1. Pump Programming: Simple Continuous 2. Pump Esto Refill: The injection site was prepped sterilely, landmarks were identified, and the pump was accessed with a coring needle. Approximately 4 (calculated 3.7) cc of clear, colorless fluid was removed from the reservoir. The reservoir was then refilled with 40 ml of 2000,cg/ml baclofen for intrathecal administration. No difficulties were noted, and the pressure was within acceptable limits. kit # 8566: concentration 2000 mcg/ml, volume 40 ml was used. 3. Programming Adjustments today: None; refill only 4. ITB system Procedures today: pump computer interrogation, pump computer reprogramming and pump reservoir refill 5. Last reservoir refill date: 02/08/20 6. Pump Low Esto Alarm Date: 06/03/20 7. Claudine Joseph and/or her caregivers have verbal consents to all of the ITB system adjustments and procedures performed today PLAN REGARDING ADJUNCTIVE SPASTICITY THERAPIES 1. Noxious stimulation worsens spasticity. This included when the weather is cold outside, urinary tract infections and other infections, pressure sores, poor seating or sleeping ergonomics, constipation and urinary retention. she is encouraged to report any of these symptoms. 2. We recommend practicing good spasticity hygiene: A. Stretch upon waking, partway through the day, and before bed every day B. Stay adequately hydrated C. Treat constipation, urinary retention, bladder infections D. Check dependant areas of the body every day for redness / skin breakdown E. Exercise! Movement is camejo. Try yoga, magan chi, or water aerobics. D. Stop to stretch during long periods of sitting (long car ride, business meeting) F. Don't get too cool. Cold often worsens spasticity. PLAN REGARDING FOLLOW UP 1. We will schedule follow up a week before her alarm date, which is 06/03/2020. 2. I strongly recommend that she keep an up-to-date emergency bottle of oral baclofen with her atall times to take for withdrawal symptoms. 3. I also recommend that she keep her [employer] identification card with our clinic contact information at all times. 4. Dr. Ngo can be reached for emergencies and after hours by calling the [facility] at . PATIENT AND CARE PROVIDER EDUCATION You can learn more about spasticity and ITB therapy at the following website: [email or web address] If you have a smart phone then we recommend you download the free pump partner application as well. It is a resource for ITB education and tracking your personalized therapy. SYNCHROMED II ITB SYSTEM The intrathecal baclofen pump system is the way our treatment team gives baclofen directly into thespinal fluid. The system consists of a catheter (a small, flexible tube) and a pump. The pump -- a round metal disc, about one inch thick and three inches in diameter -- is surgically placed under the skin of the abdomen near the waistline. The pump stores and releases prescribed amounts of medicine through the cathete directly to the spinal fluid. With a programmable pump, a tiny motor moves themedication from the pump reservoir through the catheter. Using an external it programmer analyst, your treatment team can make adjustments in the dose, rate, and timing of the medication. Continuously delivers baclofen in small doses directly to the spinal fluid, increasing the therapeutic benefits and causing fewer and less severe side effects than the oral medication. Patients with a pump must return to their doctor's office for pump refills and medication adjustments, typically every 1-3 months. ITB SYSTEM MAINTENANCE AND REPAIR The catheter may kink, break or dislodge in up to 10% of cases and would require a surgery to revise it. The Synchromed II pump requires replacement for end of battery life within 7 years. This will require a surgery. The catheter is not required to be replaced, just the pump. INTRATHECAL BACLOFEN WITHDRAWAL Signs and symptoms of baclofen withdrawal often include diffuse body itching, increased stiffness and fever. I have reminded her to take 20mg of oral baclofen and contact our office if she has these symptoms. she may need to be seen in the emergency department. The baclofen withdrawal syndrome can progress to include confusion, sedation and even coma. In severe cases baclofen withdrawal can lead to kidney damage, seizures and possibly . A lumbar puncture with an injection of 50mcg intrathecal baclofen in the emergency department is often the best treatment to address severe balcofen withdrawal symptoms. INTRATHECAL BACLOFEN OVERDOSE Signs and symptoms of baclofen overdose often include sedation and confusion and most commonly occur recently following an ITB refill/program adjustment. I recommend Claudine Siena Joseph contactour office prompts if these symptoms occur. The baclofen overdose syndrome can progress to include coma, seizures, respiratory and cardiac depression and possibly . I have reminded her to contact our office and go to the emergency room if she experiences these symptoms. A high volume lumbar puncture (removing 40cc of both CSF and intrathecal baclofen) in the emergency department is often thebest treatment for severe baclofen overdose symptoms. ITB SYSTEM INFECTION Infection of the pump system can lead to meningitis (severe brain infection) and can be possibly fatal. Signs and symptoms of pump infection can include redness, swelling, or pain around the pump or surgical scar on the back. Fever and a stiff neck are also common. I recommend that Claudine Siena Jake go to the Emergency Department if she has any of signs/symptoms of pump infection. MRI SCANNING Synchromed II ITB pumps are MRI compatible including 3T strength scanners. The pump stops pumping temporarily when the patient is moved near the MRI machine. The pump automatically restarts once the patient moves away from the MRI machine. We follow a clinic best practice of interrogating the pump following MRI scans to ensure the ITB pump has restarted. This can often be arranged to be done by [employer] Conference [employer] Event Organiser if scheduled during business hours. We recommend AGAINST any MRI scans scheduled outside of business hours. EDUCATION: HOT TUBs, STEAM ROOMS, SAUNAS AND TANNING BED We recommend patients avoid these, especially if over 102 degrees. Heating up your body causes the ITB pump to potential increase its flow rate, which could cause overdose/. EDUCATION: SCUBA DIVING We recommend that an ITB patient avoid depths below 33 feet (10 meters). Diving lower than this could permanently damage the pump. Also as you descend and the pressure around your body increases, pump flow can decrease. This could lead to baclofen withdrawal/. EDUCATION REGARDING DAYLIGHT SAVINGS TIME The clock inside the pump does not adjust for daylight savings time changes (spring forward and fall backwards). If you are on flex dosing or bolus dosing programming then your dosing will becomeshifted an hour, which may cause problems for the patient. The pump clock only corrects for daylight savings time after being interrogated by a it programmer analyst. The flex/bolus dosing patient should schedule a visit after a time change to reset their pump clocks. I spent 30 minutes face to face with the patient today. Over half the time was spent counseling regarding her spasticity as well as it's underlying medical condition, as well as her coordinating care.Thank you very much for allowing me to participate in this patient's care and please do not hesitate to contact me with questions or concerns. Sincerely, Ruma Godwin MS, BSN, ACNP-BC, CNRN Acute Care Nurse Practitioner [facility] [address], [address] [place] [address] [email or web address] [phone] documented in this encounter* Yany Wright CNP - 02/01/2019 11:11 AM EDT NEUROLOGY Outpatient Follow-Up [facility] [address], [address] [place] [address] (office) / [phone] (fax) Patient Name: Claudine Joseph : 1990 MR #: [id number] Date of Neurology Follow-up: 02/01/19 Name of Provider: Yany Wright, H[employer] AND [employer] CUTTER HAND, DIRECTOR OF GLOBAL SALES Other Physicians: Colette Goode MD (Primary Care Physician) Chief Complaint: Follow-up for Seizures (6 mo. F/U. ROSIE 08/16. Pt has been really good. Seizure activity is the same(usually everyday), but does not want med change. Says VERSED does not work [facility]. Valium is still best bet. Last seizure was yesterday morning. Pt still has open wound on herbottom, seeing a surgeon soon. ) and Medication Refill (Valium phoned in. Pt has refills on other AED's. ) 28 y.o. 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 Claudine is wheelchair-bound, nonverbal and does not follow commands. Accompanied by mom whom provides history. Interval History: Mom reports she is doing well, reports no change with her seizure frequency and reports no change with seizure type. Will have daily to 2-3 times a week seizures and reports are GTC's with arms extended up, she is wheelchair bound but if was able to stand then would fall per mom, reports requiring frequent valium at high dosages almost on a daily basis per mom. With severe GTC will have drop in respirations with reports per mom O2 sats will drop to the 60's and at times will require bagging. Last seizure was yesterday morning. Reports Versed is not beneficial but reports Valium is the best bet. Mom reports still has a ulcer on her buttocks that she will be seeing a surgeon soon for wound debridement. Reports on IV antibiotics via peg tube. Reports also with fungal infection behind ear that is improving. Mom reports feeding more secondary to wound requirement. Denies weight loss. Mom continues to report that she is taking care of several children on tube feedings. Reports tolerating oxygen. Mom reports Was seen by Endocrinology and reports was found thyroid was normal. Reports having hair loss and dry skin per mom was told secondary to wound on buttocks. Follows with the [facility] clinic for her intrathecal baclofen pump and reports did have a refill recentlyon 10/2018. Reports still has several nurses caring for Claudine at home. Seizure Types: -Little ones occurs every day to every few days reports she will stare with tonic activity will verbalize like a laugh, head to the left with tonic-clonic activity. -Large Ones reports not anything like they were. Reports less intense and duration has shortened since starting Lamictal. Current Anti-convulsants(Prior to any changes today): LTG 250 mg BID, LVT 1000 BID Liquid (did not tolerate titration to 1500 mg bid with reports of somnolence). Valium 2-6 mg PRN for seizure relief. Adverse effects: Denies Prior Anti-convulsants (Tried in Bold): BRV, CBZ, Clobazam, Clonazepam, Aptiom, Ethosuximide, GBP, LCM, LTG, LVT, OXC, Fycompa, PHB, PHT, Prim, PGB, RUF, VPA, TGB, TPM, Vigabtrin, ZNG Other History Recap: Claudine was adopted at age 10. 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 Febrile seizures Unknown. Prior workup: MRI- was completed but report was not available today EEG- From [facility] 1999 Álvaro, Generalized, Maximum bifrontal, 2001 Intermittent Rhythmic Slow, Generalized and regional Left Occipital EEG 2017- mild to moderate diffuse encephalopathy that is nonspecific. 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 Dysphagia DYSPHAGIA Gastroesophageal reflux disease with esophagitis GASTRO-ESOPHAGEAL REFLUX DISEASE WITH ESOPHAGITIS S/P percutaneous endoscopic gastrostomy (PEG) tube placement ([facility]) H/O: GASTROSTOMY Intractable symptomatic generalized epilepsy (HCC) SYMPTOMATIC GENERALIZED EPILEPSY Muscle spasticity SPASTICITY 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HCC) SPASTIC CEREBRAL PALSY Torticollis TORTICOLLIS Pneumonia due to infectious organism INFECTIVE PNEUMONIA Spasticity SPASTICITY Febrile illness, acute FEVER Encephalopathy DISORDER OF BRAIN Hypoxia HYPOXIA Restrictive lung disease due to kyphoscoliosis RESTRICTIVE LUNG DISEASE DUE TO KYPHOSCOLIOSIS Aspiration, chronic pulmonary PULMONARY ASPIRATION Tachycardia TACHYCARDIA Generalized edema EDEMA, GENERALIZED Sepsis (HCC) SEPSIS Sacral decubitus ulcer PRESSURE ULCER OF SACRAL REGION Reji-Gastaut syndrome (HCC) REJI-GASTAUT SYNDROME Home Medications: Current Outpatient Medications Medication Sig Dispense Refill acetaminophen (TYLENOL) 325 MG tablet 650 mg by G-tube route every 6 (six) hours as needed for pain. baclofen (LIORESAL) 20 MG tablet Take 1 tablet as needed for baclofen withdrawal. 30 tablet 3 catheter (SAGE CATHETER) 14 Fr Misc by Miscellaneous route . cholecalciferol, vitamin D3, (VITAMIN D3) 2,000 unit cap 2,000 Units by G-tube route every morning. ciprofloxacin HCl (CIPRO) 100 MG tablet Take 500 mg by mouth 2 (two) times a day . diazePAM (VALIUM) 2 MG tablet Take 3 tablets by mouth once daily as needed for seizure activity . 30 tablet 2 fluticasone (FLONASE) 50 mcg/actuation nasal spray 2 sprays into each nostril daily as needed for rhinitis. guaiFENesin (ROBITUSSIN) 100 mg/5 mL syrup 200 mg by G-tube route 3 (three) times a day as needed for cough . ipratropium (ATROVENT) 0.02 % nebulizer solution Do one breathing treatment twice daily. If she is congested or wheezing or labored, she can do this 4 times daily.. 300 mL 12 lamoTRIgine (LAMICTAL) 100 MG tablet Take 1 (one) tablet (100 mg total) by mouth 2 (two) times a day . 60 tablet 11 lamoTRIgine (LAMICTAL) 150 MG tablet Take 1 (one) tablet (150 mg total) by mouth 2 (two) times a day Take with the Lamictal 100 mg tablets bid for a total of 250 mg bid. . 60 tablet 11 levETIRAcetam (KEPPRA) 100 mg/mL solution Take 10 mL (1,000 mg total) by mouth 2 (two) times a day . 600 mL 11 loratadine (CLARITIN) 10 mg tablet 10 mg by G-tube route every morning . medroxyPROGESTERone (DEPO-PROVERA) 150 mg/mL injection Inject 150 mg into the shoulder, thigh, or buttocks every 3 (three) months. metoprolol succinate (TOPROL-XL) 25 MG 24 hr tablet Take 12.5 mg by mouth daily. morphine concentrated solution 20 mg/mL Give 0.25 mL (5 mg total) by G-tube route 2 (two) times a day as needed for pain. 30 mL 0 multivitamin (THERAGRAN) per tablet 1 tablet by G-tube route every morning. omeprazole (PRILOSEC) 20 MG capsule 20 mg by G-tube route every morning . polyethylene glycol (MIRALAX) 17 gram powder Take 17 g by mouth every morning . promethazine (PHENERGAN) 12.5 MG suppository Insert 12.5 mg into the rectum every 6 (six) hours as needed for nausea. baclofen 40,000 mcg/20mL (2,000 mcg/mL) Syrg 649 mcg by Intrathecal route daily . 100 mL 0 cannabidiol, CBD, extract 100 mg/mL Soln Take 2.5 mg/kg by mouth 2 (two) times a day for 7 days, THEN 5 mg/kg 2 (two) times a day. 130 mL 5 No current facility-administered medications for this visit. Tobacco use: reports that she has never smoked. She has never used smokeless tobacco. Review of Systems: Review of Systems Unable to perform ROS: other Constitution: Profound MRDD Physical Examination: Vitals: 02/01/19 1111 BP: 103/70 BP Location: Left arm Patient Position: Sitting BP Cuff Size: Youth Pulse: (!) 116 Weight: 43.1 kg (95 lb) Eyes are clear. Oral mucosa is moist. Extremities are without deformity. Denies skin rash. Noted Claudine appears that she has possibly gained some weight since the last time I saw her in July 2018. Neurological Examination: Not alert, nonverbal, no acute distress. Had eyes open during office visit. Cranial Nerves II-XII limited secondary to profound MRDD, EOM moves spontaneous dysconjuate gaze, no notable facial weakness, with horizontal nystagmus BUE and BLE contractures with increased tone, no spontaneous movement of arms or legs noted. Sensation did not withdraw to touch Wheelchair bound Additional Diagnostic data reviewed: Past medical records. Assessment and Plan: This is a 28 y.o. female with: SNOMED CT(R) 1. 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 Intractable symptomatic generalized epilepsy (HCC) SYMPTOMATIC GENERALIZED EPILEPSY diazePAM (VALIUM) 2 MG tablet cannabidiol, CBD, extract 100 mg/mL Soln Comprehensive Metabolic Panel CBC and Differential Lamotrigine Level Levetiracetam Level Hepatic Function Panel Hepatic Function Panel 3. Medication management PATIENT ENCOUNTER STATUS cannabidiol, CBD, extract 100 mg/mL Soln Comprehensive Metabolic Panel CBC and Differential Lamotrigine Level Levetiracetam Level Hepatic Function Panel Hepatic Function Panel 4. Spasticity SPASTICITY 5. Hypoxia HYPOXIA 1. Intractable symptomatic generalized epilepsy suspects Reji-Gastaut syndrome - Intractable seizures despite multiple AEDs and that notes is highly suspect based on history and semiology that Claudine is suffering from Reji-Gastaut Syndrome. - Reports still having seizures as above occurring daily to every few days with reports that it canbecome severe to where Claudine has difficulty maintaining her respiratory rate as well as her oxygen level. - Given no improvement despite AEDs and Claudine is required almost daily Valium dosages that we discussed starting Epidiolex. - Will start Epidiolex 2.5 mg/kg twice a day for 1 week and if Claudine tolerates will increase to 5mg/kg/day. Provided prescription. - Discussed adverse effects with Epidiolex. Answered questions. - Continued Lamictal at 250 mg bid for now. - Continued Keppra 1000 mg bid. - Continued Valium up to 3 tablets prn for seizures. Provided valium script. - Checked OAARs and no concerns noted. - Labs: CBC, CMP, Lamictal, Keppra now and discussed with mom that in the next 4 weeks following the start of Epidiolex will need hepatic panel drawn and discussed with mom that we will repeat that again 4 weeks following the last 4- week lab draw. Provided written orders for labs. - Discussed again VNS as alternative option. Mom deferred for now. - Does not drive. - Discussed with mom to call with any worsening seizure activity. - Follow up in 3 months. 2. Spastic cerebral palsy - Static Encephalopathy. - Reports doing well with baclofen with recent refill per records - [facility]. 3. Hypoxia - Continue O2 and bipap for acute hypercapnia - Mom reports doing well from Respiratory standpoint. - Follows with [facility]. Thanks once again for involving our practice in Claudine's care. As always, it is a pleasure to participate in the care of your patients, and we remain available to any of your patients who would benefit from timely neurological evaluation. Sincerely, Yany Wright H[employer] CUTTER HAND, DIRECTOR OF GLOBAL SALES Epilepsy Clinic, Epilepsy Monitoring Unit [facility] documented in this encounter* Gabby Davalos LSW - 09/24/2020 11:39 AM EST COMPLEX DISCHARGE Date: 09/24/2020 Time: 11:39 AM Patient Name: Claudine Joseph Date of : 1990 Sex: Female ASSOCIATE PROFESSOR OF THEOLOGY spoke with Danitza at [facility] (p [phone] f [phone]), who states that they may be able to accept pt for respite stay 09/25-09/26. Agency requests for ASSOCIATE PROFESSOR OF THEOLOGY to fax clinicals to [facility] for pt to admit to SNF as an alternative plan. Clinicals faxed to [facility]. ASSOCIATE PROFESSOR OF THEOLOGY spoke with pt's mother/gaelsydian, Ely, who is currently a patient at [facility]. Ely denies SNF stay for pt; states that physicians are planning to discharge her tomorrow 09/25 and that she prefers for pt to discharge home with her at that time. Ely states that she has her own handicap-accesible van at [facility], and she plans to transport pt herself home. Patient Information Primary Caregiver: Private caregiver Discharge Planning Source of Information: Chart, Patient, Other (Comment)(caregivers) Living Arrangements: Parent, Family members Support Systems: Other (Comment)(guardian, Peg Jake) Functional Status: Maximum assistance Current Home Equipment: Wheel chair, Oxygen [facility] Disposition D/C Disposition: Admit as Inpatient Agency/Destination: (TBD) * Onelia Bailey MSW LSW - 09/24/2020 11:05 AM EST COMPLEX DISCHARGE Date: 09/24/2020 Time: 12:15 PM Patient Name: Claudine Joseph Date of : 1990 Sex: Female ED DALJIT received phone call from [facility] social services analyst, Rhonda, who is with [facility] Board of DD, following up on pt's medical care plan. Rhonda can be reached at [phone] with anyquestions or concerns. Unit SW phone number given to Rhonda who reports she will follow up with themif any assistance is needed. No other needs identified at this time. Patient Information Primary Caregiver: Private caregiver Discharge Planning Source of Information: Chart, Patient, Other (Comment)(caregivers) Living Arrangements: Parent, Family members Support Systems: Other (Comment)(guardian, Peg Joseph) Functional Status: Maximum assistance Current Home Equipment: Wheel chair, Oxygen [facility] Disposition D/C Disposition: Admit as Inpatient Agency/Destination: (TBD) * Charline Richardson MD - 09/24/2020 7:42 AM EST [facility] Inpatient Progress Note 09/24/2020 Claudine Jospeh 1990 [id number] Assessment/Plan: Claudine Joseph is a 30 y.o. female with a history of spastic cerebral palsy, quadriplegia, chronic respiratory failure, seizures, decubitus ulcers with wound vac, chronic sage and PEG tube who presented to [facility] 09/23/2020 with need for placement, found to be COVID-19 positive on admit. 1. COVID-19 Infection: Tested positive 09/23/20. Appears asymptomatic but difficult to evaluate due to nonverbal status. No increased O2 requirements. Supportive care, special isolation, monitor closely for decompensation. 2. Need for Placement: patient presented to [facility] for outpatient appointment but mother had syncopal episode requiring hospitalization. Patient has no one else to care for her. Social work following toassist with placement. 3. Chronic Hypoxic Respiratory Failure: due to prior MRSA pneumonia and subsequent restrictive lungdisease. On 2L NC at baseline, RA on admit. 4. Spastic Cerebral Palsy: complicated by quadriplegia, seizures, decubitus ulcers and dysphagia. Non verbal at baseline. Communicates some via blinking. Has intrathecal baclofen pump in place. 5. Epilepsy: On multiple AEDs with known minor breatkthrough seizures. Continued home Keppra, Lamictal. 6. Chronic Dysphagia: with PEG tube in place. Consulted Captain Waiter/Waitress for TF recs. 7. Chronic Urinary Retention: with chronic sage catheter in place. 8. Chronic Anemia: Hgb 11.9 on admit, baseline ~11. Monitor and transfuse for Hgb < 7. 9. Code: Full unverified - attempted to reach guardian 09/24/20, no resopnse 10. DVT Prophylaxis: Lovenox SQ Current living situation: Lives with mother Expected Disposition: Dispo pending Estimated discharge date: Medically ready by 09/24/20 Subjective: Patient is new to me today. I have reviewed labs, imaging, vital signs, and prior documentation including it systems analyst consultant recommendations and summarized by me as above. Unable to obtain history or ROS due to mental status Discussed with SW - dispo planning under way Physical Exam: BP 98/62 (BP Location: Right arm, Patient Position: Lying) Pulse 89 Temp 99.4 F (37.4 C) (Axillary) Resp (!) 20 Wt 37.2 kg (82 lb 0.2 oz) SpO2 99% BMI 19.77 kg/m General: NAD, lying in bed Eyes: EOMI ENT: neck supple Cardiovascular: Regular rate, warm ext Respiratory: comfortable on NC, no wheezing Gastrointestinal: Soft, non tender, +PEG Genitourinary: no suprapubic tenderness, +sage Musculoskeletal: No edema. Skin: warm, dry Neuro: Alert. Opens eyes. Quadriplegia with contractions Psych: Mood calm Current Medications: cholecalciferol (vitamin D3) 2,000 Units Tube Daily enoxaparin (LOVENOX) injection 40 mg Subcutaneous Daily lamoTRIgine 100 mg Tube BID lamoTRIgine 150 mg Tube BID levETIRAcetam 1,000 mg Tube BID loratadine 10 mg Tube QAM metoprolol tartrate 12.5 mg Tube BID montelukast 10 mg Tube Daily mulitvitamins w/ minerals 15 mL Tube QAM pantoprazole 40 mg Other Daily polyethylene glycol 17 g Tube QAM Labs, Imaging and Studies reviewed: Results from last 7 days Lab Units 09/23/20 1608 WBC K/mcL 10.59 HGB g/dL 11.9* HCT % 38.0 PLT K/mcL 159 Results from last 7 days Lab Units 09/23/20 1608 SODIUM mmol/L 139 POTASSIUM mmol/L 4.2 CHLORIDE mmol/L 102 BICARB mmol/L 27 BUN mg/dL 14 CREATININE mg/dL 0.33* EGFR mL/min/1.73 m2 149 GLUCOSE mg/dL 97 CALCIUM mg/dL 9.8 * Delores Rodríguez MSW LSW - 09/23/2020 1:38 PM EST DISCHARGE PLAN PROGRESS NOTE Date: 09/23/2020 Time: 4:10 PM Patient Name: Claudine Joseph Date of : 1990 Sex: Female UPDATE 4:04pm-[facility] learned that pt other disabled adult children will be placed at [facility]. [facility] sent referral for Claudine there for review. [address] [place] [address] Pt arrived with her guardian, Peg Joseph for an outpatient appointment when guardian fell, causing her to be admitted to hospital. Pt, claudine has been with friend and friend cannot care for her while guardian is admitted. Pt has history of spastic cerebral palsy, quadriplegia, chronic respiratory failure, seizures, decubitus ulcers with wound vac, chronic sage and PEG tube. [facility] discussed medical respite care with Peg who is agreeable and referrals have been sent to the following places; [facility], [facility], [facility] DALJIT is following. Handoff will be provided to admit DALJIT. WAQAS Guerrier, DIRECTOR OF HEALTH EDUCATION Emergency Room Corporate Communications Specialist Vocera: ED Corporate Communications Specialist documented in this encounter* Yany Wright CNP - 10/02/2020 11:18 AM EST NEUROLOGY Telephone visit Patient location: Home Provider location: [facility] [address] [place] [address], [address] [place] [address] (office) / [phone] (fax) Patient Name: Claudine Joseph : 1990 MR #: [id number] Date of Neurology Follow-up: 10/02/20 Name of Provider: JONNATHAN Gomez, DIRECTOR OF GLOBAL SALES Other Physicians: Colette Goode MD (Primary Care Physician) Chief Complaint: Follow-up for Seizures (Pt on w/ MOM for follow up. Reports seizures everyother day.) and Medication Refill 30 y.o. female with CP in setting of Anoxic Brain Injury with history of Spasticity, MRSA, ARF, Kidney Stones and Seizures, follows with Dr. Richar Talbert, last follow-up in 01/2019, telephone encounter secondary to coronavirus pandemic and sadly, Claudine had an appointment that was postponed severalweeks ago secondary to mom falling and requiring hospitalization. Claudine and mom were both found to have COVID-19 during the hospitalization. Mom reports that Claudine is doing well with reports theyboth had COVID-19 in June 2020 and still tested positive. Reports Claudine seizures are still every other day but stable. Claudine is nonverbal and cannot provide history. Interval History: Pricilla was admitted to the ER on 09/23/2020 secondary to her mom reports had an embolism in leg. Reports had no pain and reports noted redness and thought cellulitis. Ming drove 65 miles to [facility] without any difficulty. Ming was walking Claudine into the hospital and noted sudden nausea, reportsit was like had a heart attack, reports looked around for chair but then LOC. Reports went down toknees, reports fell over side ways. Reports was out for five minutes by a bystander report. Reports she woke up on her own. Reports was ecchymotic reports woke up with SOB and noted Claudine was sobbing. Reports she was found to have a pulmonary embolism and reports she is currently now on blood thinners. Reports Claudine and Mom had COVID-19 in June 2020 and Mom reports we still tested positive recently. Mom reports Claudine is having seizures every other day. Reports occurs during sleep cycle. Mom reports still doing Epidiolex and improved seizures a little bit but reports has improved herdaily function and reports she is more alert. Denies any other new medical issues. Reports Claudine still has opened wound on her buttock and reports seeing surgeon. Reports thinks hair loss is stress secondary to wound. Reports everybody in the home is ill. Reports taking care of several children on tube feedings. Reports Versed had noted works instantly but did not help penitentiary. Reports valium works better. Noemy is on oxygen.. Reports was evaluated by endocrinology and reports thyroid workup was unremarkable. Reports baclofen pump and following with MS clinic. Reports has several nurses caring for Claudine at home. Seizure Types: -Little ones occurs every other day reports she will stare with tonic activity will verbalize like a laugh, head to the left with tonic-clonic activity. -Large Ones reports not anything like they were. Reports last event was yesterday. Reports lessintense and duration has shortened since starting Lamictal but did require Valium but reports gave decreased dose of 2 mg. Current Anti-convulsants(Prior to any changes today): Epidiolex 2 ml bid; Lamictal 250 mg BID, Keppra 1000 BID Liquid (did not tolerate titration to 1500 mg bid with reports of somnolence). Valium 2-6 mg PRN Adverse Events: Denies Prior Anti-convulsants: Tegretol, Lamictal, Keppra, phenobarbital, topiramate, Epidiolex, Valium History Recap: Claudine was adopted at age 10. 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 Febrile seizures Unknown. Prior workup: MRI- was completed but report was not available today EEG- From [facility] 1999 Álvaro, Generalized, Maximum bifrontal, 2001 Intermittent Rhythmic Slow, Generalized and regional Left Occipital EEG 2016- mild to moderate diffuse encephalopathy that is nonspecific. 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 Dysphagia Gastroesophageal reflux disease with esophagitis S/P percutaneous endoscopic gastrostomy (PEG) tube placement (HCC) Intractable symptomatic generalized epilepsy (HCC) Muscle spasticity 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HCC) Torticollis Pneumonia due to infectious organism Spasticity Febrile illness, acute Encephalopathy Hypoxia Restrictive lung disease due to kyphoscoliosis Aspiration, chronic pulmonary Tachycardia Generalized edema Sepsis (HCC) Sacral decubitus ulcer Reji-Gastaut syndrome (HCC) Pneumonia Aspiration pneumonia (HCC) UTI (urinary tract infection) Sacral wound, initial encounter COVID-19 Home Medications: Current Outpatient Medications Medication Sig Dispense Refill acetaminophen (TYLENOL) 325 MG tablet 650 mg by G-tube route every 6 (six) hours as needed for pain. cannabidioL (Epidiolex) 100 mg/mL Soln Take 2 mL by mouth 2 (two) times a day . 124 mL 5 cholecalciferol, vitamin D3, (VITAMIN D3) 2,000 unit cap 2,000 Units by G-tube route every morning. diazePAM (VALIUM) 2 MG tablet 3 (three) tablets (6 mg total) by Per G Tube route daily as needed For seizures . 30 tablet 0 doxycycline hyclate (VIBRAMYCIN) 100 MG capsule Take 100 mg by mouth 2 (two) times a day . fluticasone propionate (FLONASE) 50 mcg/actuation nasal spray Instill 1 (one) spray into each nostril daily as needed for rhinitis . 16 g 11 guaiFENesin (ROBITUSSIN) 100 mg/5 mL syrup 200 mg by G-tube route 3 (three) times a day as needed for cough . ipratropium (ATROVENT) 0.02 % nebulizer solution Do one breathing treatment twice daily. If she is congested or wheezing or labored, she can do this 4 times daily. . 300 mL 11 lamoTRIgine (LAMICTAL) 100 MG tablet 1 (one) tablet (100 mg total) by Per G Tube route 2 (two) times a day Take with 150mg tablet . 60 tablet 11 lamoTRIgine (LAMICTAL) 150 MG tablet 1 (one) tablet (150 mg total) by Per G Tube route 2 (two) times a day Take with 100mg tablet . 60 tablet 11 levETIRAcetam (KEPPRA) 100 mg/mL solution Take 10 mL (1,000 mg total) by mouth 2 (two) times a day . 600 mL 11 loratadine (CLARITIN) 10 mg tablet 10 mg by G-tube route every morning . medroxyPROGESTERone (DEPO-PROVERA) 150 mg/mL Syrg INJECT 1ML INTRAMUSCULARLY EVERY 10 TO 13 WEEKS metoprolol succinate (TOPROL-XL) 25 MG 24 hr tablet 12.5 mg daily G-Tube . montelukast (SINGULAIR) 10 mg tablet 10 mg by Per G Tube route daily . multivitamin/iron/folic acid (CENTRUM ORAL) 10 mL by G-tube route every morning . omeprazole (PRILOSEC) 40 MG capsule 40 mg by G-tube route every morning . polyethylene glycol (MIRALAX) 17 gram powder 17 g by Per G Tube route every morning . promethazine (PHENERGAN) 12.5 MG suppository Insert 12.5 mg into the rectum every 6 (six) hours as needed for nausea. No current facility-administered medications for this visit. Tobacco use: reports that she has never smoked. She has never used smokeless tobacco. Review of Systems: Review of Systems Unable to perform ROS: other Constitution: Profound MRDD Physical Examination: Not able to do a physical examination secondary to telephone encounter. Neurological Examination: No neurological examination secondary to telephone encounter. Additional Diagnostic data reviewed: Past medical records. Assessment and Plan: This is a 30 y.o. female with: 1. 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 Intractable symptomatic generalized epilepsy (HCC) diazePAM (VALIUM) 2 MG tablet 3. COVID-19 4. Muscle spasticity 5. Hypoxia 1. Intractable symptomatic generalized epilepsy - Intractable seizures despite multiple AEDs but mom reports improvement with frequency, intensity,duration and severity and reports Claudine is doing well. - Reports she is having seizures that occur every other day. - Sadly, Claudine was diagnosed with COVID-19 in June 2020 and was recently in the hospital justto be monitored because mom was in the hospital and Claudine had no one to care for her. Claudine wasasymptomatic during that time with no concerns. - Continued Epidiolex 2 mL twice a day. Provided prescription. - Continue Lamictal at 250 mg bid for now. Provided prescriptions. - Continued Keppra 1000 mg bid. Provided prescriptions. - Continued Valium prn and mom reports Midazolam 1 mg in each nostril prn was not effective, discontinued ordered. Provided valium prescription. - Checked OAARs and no concerns noted. - Labs to consider at next office visit: CBC, CMP, Lamictal, Keppra (to be done prior to next visit). Provided mom with handout for orders. - Discussed VNS as alternative option at previous office visits and provided education pamphlet. - Does not drive. - Discussed with mom to call or MyChart with questions, concerns or any worsening seizure activity - Follow up in [address] Talbert. 2. Spastic cerebral palsy - Static Encephalopathy. - Baclofen pump with reports had decreased dose recently and doing better. - Follows in the [facility]. 3. Hypoxia - Continue O2 and bipap for acute hypercapnia - Mom reports doing well from Respiratory standpoint. - Follows with [facility]. Thanks once again for involving our practice in Claudine's care. As always, it is a pleasure to participate in the care of your patients, and we remain available to any of your patients who would benefit from timely neurological evaluation. Sincerely, Yany Wright, [employer], DIRECTOR OF GLOBAL SALES Epilepsy Clinic, Epilepsy Monitoring Unit [facility] Neurological Physicians documented in this encounter* Ruma Godwin CNP - 03/08/2019 3:55 PM EDT [facility] Spasticity Clinic: Intrathecal Baclofen Therapy Progress Note 03/09/2019 CHIEF COMPLAINT Spasticity follow up from 11/20/18 IMPRESSIONS AT LAST VISIT / INTERM HISTORY Medically refractory, severe spasticity secondary to Spasticity Etiology: CP managed with intrathecal baclofen therapy. Based on today s history, physical examination and review of ITB telemetry, I feel her severe spasticity is under adequate control. Current ITB goals include: decrease cramps and spasms, spasticity related pains, loosen thelegs, loosen the arms, improve options for seating and positioning, help prevent contractures and bed sores, improve caregiver ease of care Other associated diagnoses / active problems for this visit include: weakness, spasticity, requireswheelchair / scooter for mobility, wound right buttock. Total Daily Dose: 649.8 mcg/day. Programming Adjustments today: None; refill only. CONTEMOPORARY HISTORY Claudine presents to clinic for ITB pump refill with mom and caregiver. She has decubitus ulcer in gluteal fold on the right. She is on IV antibiotics, has sage cath to keep wound dry. States wound vac was not working. Following in wound clinic. Mom reports had surgicalopinion to close wound, but did not agree with his plan. She was admitted with sepsis in November. Mom reports no seizures since starting on CBD extract. Overall she / her farm or ranch animal caretaker reports that her spasticity is active. OTHER RELEVANT HISTORY [facility] ROS No documentation. She has a past medical history of Acute respiratory failure (HCC), Allergic rhinitis, Anoxic brain damage ([facility]), Aspiration, chronic pulmonary, Bowel and bladder incontinence, Cerebral palsy ([facility]), Chronic respiratory failure with hypoxia ([facility]), Constipation, GERD (gastroesophageal reflux disease),MRSA (methicillin resistant Staphylococcus aureus) (04/2016), Nonverbal, Postoperative retention ofurine, Restrictive lung disease due to kyphoscoliosis, and Seizures ([facility]). She has a past surgical history that includes Peg Tube Insertion; Baclofen pump implantation; Salivary gland surgery; Back surgery (1999); Cholecystectomy; Pain Pump Revision (N/A, 07/27/2016); Laminectomy Decomp Thoracic Multi Level (N/A, 07/27/2016); and Incision And Drainage Lower Extremity (Right, 12/02/2018). She reports that she has never smoked. She has never used smokeless tobacco. She reports that she does not drink alcohol or use drugs. Social History Social History Narrative Not on file She She was adopted. Family history is unknown by patient. Allergies Allergen Reactions Levaquin [Levofloxacin] Rash, flushing with RUE arm swelling. Augmentin [Amoxicillin-Pot Clavulanate] Rash Lactose Intolerance [Lactase] Penicillins Other (See Comments) Blisters Ragweed Unknown She has a current medication list which includes the following prescription(s): acetaminophen, baclofen, cannabidiol (cbd) extract, catheter, cholecalciferol (vitamin d3), ciprofloxacin hcl, diazepam, fluticasone propionate, guaifenesin, ipratropium, lamotrigine, lamotrigine, levetiracetam, loratadine, medroxyprogesterone, meropenem-0.9% sodium chloride, metoprolol succinate, morphine, multivitamin, omeprazole, polyethylene glycol, promethazine, baclofen, and lidocaine-prilocaine. PHYSICAL EXAMINATION Vital Signs: Blood pressure 121/80, pulse (!) 111. General Appearance: in no apparent distress. Eyes: Anicteric sclerae. Moist conjunctivae. No lid edema noted. HENT: Head atraumatic, normocephalic. Oropharynx clear. Moist mucous membranes. Neck/ Thyroid:trachea midline. Supple. No massess. No thyromegaly. Lungs: Normal respiratory effort. No intercostal retractions. No dyspnea during conversation. Abdomen: soft, non-distended Extremities: no clubbing, cyanosis, pedal edema, ulcer nor wound noted. Skin: warm, dry, no rash, no ecchymoses, no petechiae noted Pysch: Non verbal NEUROLOGICAL EXAMINATION Mental Status is awake, non-verbal, tracking examiner. Modified Estefani Score: EE EF Hip add KE KF DF PF Right 2 1 0 0 Left 1 0 0 0 Wheelchair bound ITB TELEMETRY and OTHER DATA I have independently reviewed the ITB pump system telemetry. ASSESSMENT Medically refractory, severe spasticity secondary to Spasticity Etiology: CP managed with intrathecal baclofen therapy. Based on today s history, physical examination and review of ITB telemetry, I feel her severe spasticity is active and negatively impact QoL / ADLs / vocation. Current ITB goals include: decrease cramps and spasms, spasticity related pains, loosen thelegs, loosen the arms, help prevent contractures and bed sores, improve caregiver ease of care Other associated diagnoses / active problems for this visit include: weakness, spasticity, requireswheelchair / scooter for mobility, seizures INTRATHECAL BACLOFEN SYSTEM INFORMATION FOR Claudine Joseph Severe Spasticity due to: CP Implanted: [address] Roxy RENE date: 50 (March 2023) Synchromed I IPump Size: 40 mL Willard Location: 11 oclock Catheter Tip Placement: PLAN REGARDING INTRATHECAL BACLOFEN THERAPY First Medication Brand: LIORESAL Concentration: 2000 mcg/mL Total Daily Dose: 649.8 mcg/day 1. Pump Programming: Simple Continuous 2. Pump Esto Refill: The injection site was prepped sterilely, landmarks were identified, and the pump was accessed with a coring needle. Approximately 6 (calculated 5) cc of clear, colorless fluid was removed from the reservoir. The reservoir was then refilled with 40 ml of 2000mcg/ml baclofen for intrathecal administration. No difficulties were noted, and the pressure was within acceptablelimits. kit # [id number]: concentration 2000 mcg/ml, volume 40 ml was used. 3. Programming Adjustments today: None; refill only 4. ITB system Procedures today: pump computer interrogation, pump computer reprogramming and pump reservoir refill 5. Last reservoir refill date: 03/09/19 6. Pump Low Esto Alarm Date: 07/03/19 7. Claudine Joseph and/or her caregivers have verbal consents to all of the ITB system adjustments and procedures performed today PLAN REGARDING ADJUNCTIVE SPASTICITY THERAPIES 1. Noxious stimulation worsens spasticity. This included when the weather is cold outside, urinary tract infections and other infections, pressure sores, poor seating or sleeping ergonomics, constipation and urinary retention. she is encouraged to report any of these symptoms. 2. We recommend practicing good spasticity hygiene: A. Stretch upon waking, partway through the day, and before bed every day B. Stay adequately hydrated C. Treat constipation, urinary retention, bladder infections D. Check dependant areas of the body every day for redness / skin breakdown E. Exercise! Movement is camejo. Try yoga, magan chi, or water aerobics. D. Stop to stretch during long periods of sitting (long car ride, business meeting) F. Don't get too cool. Cold often worsens spasticity. 3. We provided refill on Emla cream. PLAN REGARDING FOLLOW UP 1. We will schedule follow up a week before her alarm date, which is 07/03/19. 2. I strongly recommend that she keep an up-to-date emergency bottle of oral baclofen with her atall times to take for withdrawal symptoms. 3. I also recommend that she keep her [employer] identification card with our clinic contact information at all times. 4. Dr. Murphy and Dr. Ngo can be reached for emergencies and after hours by calling the [facility] at . PATIENT AND CARE PROVIDER EDUCATION You can learn more about spasticity and ITB therapy at the following website: www.baclofenpump.com If you have a smart phone then we recommend you download the free pump partner application as well. It is a resource for ITB education and tracking your personalized therapy. SYNCHROMED II ITB SYSTEM The intrathecal baclofen pump system is the way our treatment team gives baclofen directly into thespinal fluid. The system consists of a catheter (a small, flexible tube) and a pump. The pump -- a round metal disc, about one inch thick and three inches in diameter -- is surgically placed under the skin of the abdomen near the waistline. The pump stores and releases prescribed amounts of medicine through the cathete directly to the spinal fluid. With a programmable pump, a tiny motor moves themedication from the pump reservoir through the catheter. Using an external it programmer analyst, your treatment team can make adjustments in the dose, rate, and timing of the medication. Continuously delivers baclofen in small doses directly to the spinal fluid, increasing the therapeutic benefits and causing fewer and less severe side effects than the oral medication. Patients with a pump must return to their doctor's office for pump refills and medication adjustments, typically every 1-3 months. ITB SYSTEM MAINTENANCE AND REPAIR The catheter may kink, break or dislodge in up to 10% of cases and would require a surgery to revise it. The Synchromed II pump requires replacement for end of battery life within 7 years. This will require a surgery. The catheter is not required to be replaced, just the pump. INTRATHECAL BACLOFEN WITHDRAWAL Signs and symptoms of baclofen withdrawal often include diffuse body itching, increased stiffness and fever. I have reminded her to take 20mg of oral baclofen and contact our office if she has these symptoms. she may need to be seen in the emergency department. The baclofen withdrawal syndrome can progress to include confusion, sedation and even coma. In severe cases baclofen withdrawal can lead to kidney damage, seizures and possibly . A lumbar puncture with an injection of 50mcg intrathecal baclofen in the emergency department is often the best treatment to address severe balcofen withdrawal symptoms. INTRATHECAL BACLOFEN OVERDOSE Signs and symptoms of baclofen overdose often include sedation and confusion and most commonly occur recently following an ITB refill/program adjustment. I recommend Claudine Joseph contact our office prompts if these symptoms occur. The baclofen overdose syndrome can progress to include coma, seizures, respiratory and cardiac depression and possibly . I have reminded her to contact our office and go to the emergency room if she experiences these symptoms. A high volume lumbar puncture (removing 40cc of both CSF and intrathecal baclofen) in the emergency department is often the best treatment for severe baclofen overdose symptoms. ITB SYSTEM INFECTION Infection of the pump system can lead to meningitis (severe brain infection) and can be possibly fatal. Signs and symptoms of pump infection can include redness, swelling, or pain around the pump or surgical scar on the back. Fever and a stiff neck are also common. I recommend that Claudine Joseph go to the Emergency Department if she has any of signs/symptoms of pump infection. MRI SCANNING Synchromed II ITB pumps are MRI compatible including 3T strength scanners. The pump stops pumping temporarily when the patient is moved near the MRI machine. The pump automatically restarts once the patient moves away from the MRI machine. We follow a clinic best practice of interrogating the pump following MRI scans to ensure the ITB pump has restarted. This can often be arranged to be done by [employer] Conference And Event Organiser if scheduled during business hours. We recommend AGAINST any MRI scans scheduled outside of business hours. EDUCATION: HOT TUBs, STEAM ROOMS, SAUNAS AND TANNING BED We recommend patients avoid these, especially if over 102 degrees. Heating up your body causes the ITB pump to potential increase its flow rate, which could cause overdose/. EDUCATION: SCUBA DIVING We recommend that an ITB patient avoid depths below 33 feet (10 meters). Diving lower than this could permanently damage the pump. Also as you descend and the pressure around your body increases, pump flow can decrease. This could lead to baclofen withdrawal/. EDUCATION REGARDING DAYLIGHT SAVINGS TIME The clock inside the pump does not adjust for daylight savings time changes (spring forward and fall backwards). If you are on flex dosing or bolus dosing programming then your dosing will becomeshifted an hour, which may cause problems for the patient. The pump clock only corrects for daylight savings time after being interrogated by a it programmer analyst. The flex/bolus dosing patient should schedule a visit after a time change to reset their pump clocks. I spent 30 minutes face to face with the patient today. Over half the time was spent counseling regarding her spasticity as well as it's underlying medical condition, as well as her coordinating care.Thank you very much for allowing me to participate in this patient's care and please do not hesitate to contact me with questions or concerns. Sincerely, Ruma Godwin MS, BSN, ACNP-BC, CNRN Acute Care Nurse Practitioner [facility] [place] [address] [place], [address] [place] [id number] [email or web address] [phone] documented in this encounter* Ericka James LPN - 01/12/2019 11:10 AM EDT Labored breathing occasionally. Denies cough. Chest tightness/discomfort. occasinal wheezing. * Stephy Cisse MD - 01/12/2019 10:38 AM EDT Assessment/Plan: Diagnoses and all orders for this visit: Chronic respiratory failure with hypoxia and hypercapnia (HCC) Restrictive lung disease due to kyphoscoliosis Chronic pulmonary aspiration, sequela No change from a pulmonary perspective. Exam stable. Recent CT chest showed no acute changes. Will see back in a year OFFICE NOTE Claudine Joseph is a 28 y.o. female with CP who presents with her mother for aspiration, chronic respiratory failure, and restrictive lung disease. As Claudine cannot speak, the history is obtained from her mother and review her office/ hospital notes. As you know, Claudine has CP. Has had chronic aspiration since childhood. ALso has known severe kyphoscoliosis and has surgery to try to repair this at age [age] years old. Claudine has a seizure at least once daily. During these seizures, her pulse and O2 saturations and breathing can become erratic. Does have difficulty clearing secretions. Her head is kept elevated at all times.She is on nebulized atrovent BID and QID as needed and this helped. Since last seen, has been dealing with a non healing ulcer /osteomyelitis on her bottom. She is going to wound clinic and currently on antibiotics. She was hospitalized in November because of this. No change in her respiratory status. Continues on O2. Continues with nebs. No change in secretions.Not labored. Continues to have seizures daily. Has an indwelling sage. Mentation has fluctated depending on other medical issues. She seems to be more of her usual self in the last few weeks. Seems comfortable. No new diarrhea. Deals with constipation chronically and has miralax Current Outpatient Medications: acetaminophen (TYLENOL) 325 MG tablet, 650 mg by G-tube route every 6 (six) hours as needed for pain ., Disp: , Rfl: baclofen (LIORESAL) 20 MG tablet, Take 1 tablet as needed for baclofen withdrawal., Disp: 30 tablet, Rfl: 3 catheter (SAGE CATHETER) 14 Fr Misc, by Miscellaneous route ., Disp: , Rfl: cholecalciferol, vitamin D3, (VITAMIN D3) 2,000 unit cap, 2,000 Units by G-tube route every morning., Disp: , Rfl: ciprofloxacin HCl (CIPRO) 100 MG tablet, Take 500 mg by mouth 2 (two) times a day ., Disp: , Rfl: diazePAM (VALIUM) 2 MG tablet, Take 3 tablets by mouth once daily as needed for seizure activity .,Disp: 30 tablet, Rfl: 2 fluticasone (FLONASE) 50 mcg/actuation nasal spray, 2 sprays into each nostril daily as needed for rhinitis., Disp: , Rfl: guaiFENesin (ROBITUSSIN) 100 mg/5 mL syrup, 200 mg by G-tube route 3 (three) times a day as needed for cough ., Disp: , Rfl: ipratropium (ATROVENT) 0.02 % nebulizer solution, Do one breathing treatment twice daily. If she iscongested or wheezing or labored, she can do this 4 times daily.., Disp: 300 mL, Rfl: 12 lamoTRIgine (LAMICTAL) 100 MG tablet, Take 1 (one) tablet (100 mg total) by mouth 2 (two) times a day ., Disp: 60 tablet, Rfl: 11 lamoTRIgine (LAMICTAL) 150 MG tablet, Take 1 (one) tablet (150 mg total) by mouth 2 (two) times a day Take with the Lamictal 100 mg tablets bid for a total of 250 mg bid. ., Disp: 60 tablet, Rfl: 11 levETIRAcetam (KEPPRA) 100 mg/mL solution, Take 10 mL (1,000 mg total) by mouth 2 (two) times a day., Disp: 600 mL, Rfl: 11 loratadine (CLARITIN) 10 mg tablet, 10 mg by G-tube route every morning ., Disp: , Rfl: medroxyPROGESTERone (DEPO-PROVERA) 150 mg/mL injection, Inject 150 mg into the shoulder, thigh, or buttocks every 3 (three) months., Disp: , Rfl: metoprolol succinate (TOPROL-XL) 25 MG 24 hr tablet, Take 12.5 mg by mouth daily., Disp: , Rfl: morphine concentrated solution 20 mg/mL, Give 0.25 mL (5 mg total) by G-tube route 2 (two) times a day as needed for pain., Disp: 30 mL, Rfl: 0 multivitamin (THERAGRAN) per tablet, 1 tablet by G-tube route every morning., Disp: , Rfl: omeprazole (PRILOSEC) 20 MG capsule, 20 mg by G-tube route every morning ., Disp: , Rfl: polyethylene glycol (MIRALAX) 17 gram powder, Take 17 g by mouth every morning ., Disp: , Rfl: promethazine (PHENERGAN) 12.5 MG suppository, Insert 12.5 mg into the rectum every 6 (six) hours asneeded for nausea., Disp: , Rfl: baclofen 40,000 mcg/20mL (2,000 mcg/mL) Syrg, 649 mcg by Intrathecal route daily ., Disp: 100 mL, Rfl: 0 Allergies as of 01/12/2019 - Reviewed 01/12/2019 Allergen Reaction Noted Levaquin [levofloxacin] 04/26/2017 Augmentin [amoxicillin-pot clavulanate] Rash 05/14/2016 Lactose intolerance [lactase] 02/24/2017 Penicillins Other (See Comments) 10/07/2018 Ragweed Unknown 05/14/2016 Immunization History Administered Date(s) Administered DTaP, Unspecified 1990, 1990, 02/16/1991, 01/25/1992, 09/22/1995 Hepatitis B 09/08/2000, 11/24/2000 HiB 1990, 1990, 02/16/1991, 01/25/1992 INFLUENZA IIV4 3YO OR > FLUARIX/FLUZONE/AFLURIA 51091 08/01/2016, 11/24/2016 IPV 07/02/2003 Influenza Whole 05/31/2004 Influenza, Injectable, Quadrivalent, Preservative Free 08/01/2016, 11/24/2016 Influenza, Seasonal, Injectable 07/13/2001, 07/02/2003 Influenza, Unspecified 06/24/2008, 06/02/2017 MMR 01/25/1992, 11/24/2000, 03/31/2003 Pneumococcal Polysaccharide (Pneumovax) 08/10/2008 Polio, Unspecified 1990, 1990, 01/25/1992 Varicella (Varivax) 04/21/1999 Past Medical History: Diagnosis Date Acute respiratory failure (HCC) Due to MRSA pneumonia 04/2016; Allergic rhinitis Anoxic brain damage (HCC) Aspiration, chronic pulmonary Bowel and bladder incontinence Cerebral palsy (HCC) Chronic respiratory failure with hypoxia (HCC) Constipation GERD (gastroesophageal reflux disease) occasional vomiting with gagging MRSA (methicillin resistant Staphylococcus aureus) 04/2016 Bilateral lungs Nonverbal Answers yes with very long blinks per adoptive parent Postoperative retention of urine occasional occurrence that requires straight cath periodically Restrictive lung disease due to kyphoscoliosis Seizures (HCC) Daily occurrence-Neuro- adoptive mother can't remember name of urologist Past Surgical History: Procedure Laterality Date BACK SURGERY 1999 Marrufo rods placed BACLOFEN PUMP IMPLANTATION X 3- last 2009 CHOLECYSTECTOMY INCISION AND DRAINAGE LOWER EXTREMITY Right 12/02/2018 Procedure: INCISION AND DRAINAGE WITH BONE BIOPSY OF RIGHT ISCHIUM; Surgeon: Rad Luque MD; Location: [facility] Main OR; Service: Orthopedic LAMINECTOMY DECOMP THORACIC MULTI LEVEL N/A 07/27/2016 Procedure: T1-2 THORACIC FUSION REVISION ; Surgeon: Kb Ramsey MD; Location: [facility] Main OR; Service: PEG TUBE INSERTION REVISION PAIN PUMP N/A 07/27/2016 Procedure: BACLOFEN PUMP REPLACEMENT ; Surgeon: Kb Ramsey MD; Location: [facility] Main OR; Service: SALIVARY GLAND SURGERY Family History Adopted: Yes Family history unknown: Yes Social History Social History Narrative Not on file Vitals: 01/12/19 1036 BP: (!) 89/53 Pulse: (!) 102 Resp: 18 Temp: 97.5 F (36.4 C) TempSrc: Oral SpO2: 94% Height: 4' 6 EXAM: Gerneral: sleeping, NADexamined in wheelchair. Non verbal. Eyes: clear conjunctiva ENT: Cannot open her mouth much. CVS: Slightly tachy, no edema Pulm: Her nurse helped lean her forward so I could auscultate her lungs. She has significant scoliosis and as a result chest wall and air movement are diminished and not symmetrical. Clear. Not labored. 94% Abdomen: active BS, soft, NT. She has feeding tube MS: Significant scolioss Psych: sleeping Lymph: no cervical LAD documented in this encounter* Keiko Steel RN - 03/22/2020 1:02 PM EDT [facility] RN Note: Responding to consult for NPWT dressing change,since patient came with wound VAC. Reviewed the H&P and notes prior to entering the room. Per nursing charting, the NPWT dressing was removed and a gauze dressing was placed last night due to the patient having bowel movement. Her Mom is at the bedside. Introduced self and role to the patient and Mom. The patient was turned to the left side by her Mom.Removed tape and gauze dressing from the right ischial, see details of wound below. The right ischial is a resolving stage 4 pressure injury that was present on admission to the hospital. The makenzie wound skin was cleansed with soap and water, allowed to dry, and Cavilon nosting barrier film was applied. The periwound skin was pictured framed with drape. Placed one pieceof shaved granufoam into the wound bed, bridged onto the right anterior thigh, and secured with drape. The NPWT was initiated at 125 mmHg, no appreciable leaks. The canister is malodorous and will bechanged when gets home. Patient tolerated the dressing change well. Next dressing change will be onTuesday if the patient is still hospitalized. Called & updated Rhina, patient's RN of the NPWT dressing change. Otherwise, she can resume previous NPWT dressing changes at [facility]. Wound Documentation: 03/22/20 1302 Negative Pressure Wound Therapy 03/22/20 Right Date First Assessed/Time First Assessed: 03/22/20 1237 Wound Type: Pressure ulcer: stage IV Location: (c) Buttocks Wound Location Orientation: Right Wound Bed Characteristics Red;Granulation tissue Makenzie-wound Assessment Temperature WNL;Dry;Intact Unit Type Simply VAC (Home unit) Dressing Type Black foam Number of Foam Pieces Used 2 Cycle Continuous;On Target Pressure (mmHg) 125 Canister Changed No Dressing Status Removed;Tape;Gauze Drainage Amount Scant Drainage Description Serous Wound 03/21/20 1 Chronic Pressure Injury Ischial Tuberosity Right Date First Assessed/Time First Assessed: 03/21/201957 Number: 1 Present on Hospital Admission: YesWound Condition (HOME HEALTH ONLY): Chronic Primary Wound Type: Pressure Injury Location: Ischial Tuberosity Wound Location Orientation: Right ... Dressing Status Removed;Tape;Gauze Dressing Changed New Wound Length (cm) 4 cm Wound Width (cm) 1.2 cm Wound Depth (cm) 1.2 cm Wound Surface Area (cm^2) 4.8 cm^2 Wound Volume (cm^3) 5.76 cm^3 Area % Change 0 Pressure Injury Stage 4 (healing stage 4) Non-staged Wound Description Full thickness Drainage Amount Scant Drainage Description Serous Odor None Wound Margin Well defined;Rolled Granulation % Bright red;[place];76-100% Wound Bed Characteristics Red;[place];Granulation tissue Makenzie-wound Assessment Temperature WNL;Dry;Intact Treatments Skin sealant to periwound Cleansed Soap and water (Periwound skin) Primary Dressing NPWT Keiko FELTON, RN, WOC * Jerri Munroe CNP - 03/22/2020 7:01 AM EDT [facility] Inpatient Progress Note 03/22/2020 Claudine Joseph 1990 [id number] Assessment/Plan: Claudine Joseph is a 29 y.o. female with a history of spastic cerebral palsy, quadriplegia, chronic respiratory failure, seizures, decubitus ulcers with wound vac, chronic sage and PEG tube with recent admission 02/11-02/14/20 for sepsis due to aspiration pneumonia. She represented to [facility] 03/21/2020 with concern for sepsis by mother due to change in behaviour. BP 84/56 on arrival, afebrile. WBC 7.95, lactate 0.9, Na 146. UA with 113 WBC, large LE. 1. Sepsis due to acute UTI: presented with SBP 80s due to possible UTI although with chronic Sage.Urine and blood cultures pending. BP normalized with holding home BB and giving IVF. IV Rocephin given in ED, plan for 3 doses of Omnicef and then to start Meropenem as outpatient as below. Plan to resume BB at discharge. 2. Chronic hypoxic respiratory failure: due to prior MRSA pneumonia and subsequent restrictive lungdisease. On 4-5 L via NC, at baseline on admit. 3. 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 Non verbal at baseline. Communicates some via blinking. Has intrathecal baclofen pump. 4. Chronic seizures: per history. On multiple AEDs with known minor breatkthrough seizures. Continued home Keppra, Lamictal, Epidiolex. 5. Chronic wound: present on admission, due to pressure injury. Follows with wound care clinic. Wound vac in place. On suppressive doxycycline with Meropenem planned to start on 03/23/20 due to positive wound culture. Records requested. Wound care following. Midline IV requested on 03/22/20--pt will discharge with this. 6. Chronic dysphagia: Peg tube in place. TFs per fancy stitcher. 7. Chronic urinary retention: with chronic Sage. 8. DVT prophylaxis: Lovenox SC Current living situation: Home with home health with mother Expected Disposition: Likely same Estimated discharge date: 03/22/20 after midline IV placed. Mother updated bedside 03/22/20 Subjective: Records reviewed including labs, vital signs, imaging, and it systems analyst consultant recommendations. She is nonverbal at baseline. Unable to obtain a ROS. Mother at bedside, states she is close to her baseline. She is agreeable to discharge home today after midline IV placed. Physical Exam: BP 107/66 (BP Location: Right arm, Patient Position: Lying) Pulse 99 Temp 98.2 F (36.8 C) (Axillary) Resp 18 Ht 4' 5 Wt 38.6 kg (85 lb) SpO2 100% BMI 21.28 kg/m General: chronically ill appearing. Eyes: EOMI ENT: MM dry. Cardiovascular: Tachycardic rate, regular rhythm. 1+ BLE edema. Respiratory: Clear to auscultation, on oxygen. Gastrointestinal: Soft, non tender, PEG in place Genitourinary: Sage with yellow urine in bag Musculoskeletal: B/L upper and lower extremity contractures, Wound vac in place Skin: warm, dry, wound vac in place Neuro: Alert. Blinks, at baseline per mother Psych: Mood appropriate. Current Medications: cefTRIAXone (ROCEPHIN) IVPB 1,000 mg Intravenous Q24H cholecalciferol (vitamin D3) 2,000 Units Tube Daily enoxaparin (LOVENOX) injection 40 mg Subcutaneous Daily ipratropium 0.5 mg Inhalation BID lamoTRIgine 100 mg Tube BID lamoTRIgine 150 mg Tube BID levETIRAcetam 10 mg/kg Tube BID loratadine 10 mg Tube QAM montelukast 10 mg Tube Daily polyethylene glycol 17 g Tube QAM sodium chloride (PF) 10 mL Intracatheter Q8H ISSAC Labs, Imaging and Studies reviewed: Results from last 7 days Lab Units 03/21/20 1447 WBC K/mcL 7.95 HGB g/dL 12.0 HCT % 41.2 PLT K/mcL 208 Results from last 7 days Lab Units 03/22/20 0447 03/21/20 1447 SODIUM mmol/L 145 146* POTASSIUM mmol/L 4.0 4.3 CHLORIDE mmol/L 104 103 BICARB mmol/L 27 31 BUN mg/dL 11 14 CREATININE mg/dL 0.34* 0.33* EGFR mL/min/1.73 m2 149 150 GLUCOSE mg/dL 88 85 CALCIUM mg/dL 9.9 -- documented in this encounter* Wilder Noland MD - 06/01/2019 10:00 AM EDT Patient Name: Claudine Joseph MR #: [id number] : 1990 Referring Physician: Marielle Duque* Physicians: Colette Goode MD (Family); Assessment and Plan: Reviewed this lady's CT scan as well as her bone scan. This shows no evidence of ischial osteomyelitis and no drainable abscess. As she is continuing to improve with local dressing changes, I think this should be our tact. I have asked them to return in 3 months' time for repeat evaluation to see if this is closed. Chief Complaint/Reason for Visit: Right ischial decubitus ulcer History of Present Illness: Ms. Joseph is an unfortunate 29-year-old female with cerebral palsy. She had an anoxic brain injury at . She developed multiple problems over her life, including dysphasia, mental retardation, epilepsy, and recurrent episodes of pneumonia. About a year ago, she developed a right ischial decubitus pressure ulcer. X-rays were obtained at that juncture, according to her caregiver. There was nounderlying bone osteo. They have been treating it conservatively with silver packing dressing changes on a b.i.d. basis with some improvement of late. She returns today following her recent ct pelvisand bone scan History: Past Medical History: Diagnosis Date Acute respiratory failure (HCC) Due to MRSA pneumonia 04/2016; Allergic rhinitis Anoxic brain damage (HCC) Aspiration, chronic pulmonary Bowel and bladder incontinence Cerebral palsy (HCC) Chronic respiratory failure with hypoxia (HCC) Constipation GERD (gastroesophageal reflux disease) occasional vomiting with gagging MRSA (methicillin resistant Staphylococcus aureus) 04/2016 Bilateral lungs Nonverbal Answers yes with very long blinks per adoptive parent Postoperative retention of urine occasional occurrence that requires straight cath periodically Restrictive lung disease due to kyphoscoliosis Seizures (HCC) Daily occurrence-Neuro- adoptive mother can't remember name of urologist Past Surgical History: Procedure Laterality Date BACK SURGERY 1999 Marrufo rods placed BACLOFEN PUMP IMPLANTATION X 3- last 2009 CHOLECYSTECTOMY INCISION AND DRAINAGE LOWER EXTREMITY Right 12/02/2018 Procedure: INCISION AND DRAINAGE WITH BONE BIOPSY OF RIGHT ISCHIUM; Surgeon: Rad Luque MD; Location: [facility] Main OR; Service: Orthopedic LAMINECTOMY DECOMP THORACIC MULTI LEVEL N/A 07/27/2016 Procedure: T1-2 THORACIC FUSION REVISION ; Surgeon: Kb Ramsey MD; Location: [facility] Main OR; Service: PEG TUBE INSERTION REVISION PAIN PUMP N/A 07/27/2016 Procedure: BACLOFEN PUMP REPLACEMENT ; Surgeon: Kb Ramsey MD; Location: [facility]; Service: SALIVARY GLAND SURGERY Family History Adopted: Yes Family history unknown: Yes Social History Socioeconomic History Marital status: Single Spouse name: Not on file Number of children: Not on file Years of education: Not on file Highest education level: Not on file Occupational History Not on file Social Needs Financial resource strain: Not on file Food insecurity: Worry: Not on file Inability: Not on file Transportation needs: Medical: Not on file Non-medical: Not on file Tobacco Use Smoking status: Never Smoker Smokeless tobacco: Never Used Substance and Sexual Activity Alcohol use: No Drug use: No Sexual activity: Not on file Lifestyle Physical activity: Days per week: Not on file Minutes per session: Not on file Stress: Not on file Relationships Social connections: Talks on phone: Not on file Gets together: Not on file Attends protestant service: Not on file Active member of club or organization: Not on file Attends meetings of clubs or organizations: Not on file Relationship status: Not on file Other Topics Concern Not on file Social History Narrative Not on file Allergy Information: I have reviewed the patient's allergies. Levaquin [levofloxacin]; Augmentin [amoxicillin-pot clavulanate]; Lactose intolerance [lactase]; Penicillins; and Ragweed Home Medications: Claudine Joseph Home Medication Instructions Prior to Surgery SADIE: Printed on:05/09/19 5949 Medication Information Take last dose on Take the morning of surgery Comment(s) acetaminophen (TYLENOL) 325 MG tablet 650 mg by G-tube route every 6 (six) hours as needed for pain . baclofen (LIORESAL) 20 MG tablet Take 1 tablet as needed for baclofen withdrawal. baclofen 40,000 mcg/20mL (2,000 mcg/mL) Syrg 649 mcg by Intrathecal route daily . catheter (SAGE CATHETER) 14 Fr Misc by Miscellaneous route . cholecalciferol, vitamin D3, (VITAMIN D3) 2,000 unit cap 2,000 Units by G-tube route every morning. ciprofloxacin HCl (CIPRO) 100 MG tablet Take 500 mg by mouth 2 (two) times a day . diazePAM (VALIUM) 2 MG tablet Take 3 tablets by mouth once daily as needed for seizure activity . fluticasone (FLONASE) 50 mcg/actuation nasal spray 2 sprays into each nostril daily as needed for rhinitis. guaiFENesin (ROBITUSSIN) 100 mg/5 mL syrup 200 mg by G-tube route 3 (three) times a day as needed for cough . ipratropium (ATROVENT) 0.02 % nebulizer solution Do one breathing treatment twice daily. If she is congested or wheezing or labored, she can do this4 times daily.. lamoTRIgine (LAMICTAL) 100 MG tablet Take 1 (one) tablet (100 mg total) by mouth 2 (two) times a day . lamoTRIgine (LAMICTAL) 150 MG tablet Take 1 (one) tablet (150 mg total) by mouth 2 (two) times a day Take with the Lamictal 100 mg tablets bid for a total of 250 mg bid. . levETIRAcetam (KEPPRA) 100 mg/mL solution Take 10 mL (1,000 mg total) by mouth 2 (two) times a day . lidocaine-prilocaine (EMLA) cream Apply topically as needed . loratadine (CLARITIN) 10 mg tablet 10 mg by G-tube route every morning . medroxyPROGESTERone (DEPO-PROVERA) 150 mg/mL injection Inject 150 mg into the shoulder, thigh, or buttocks every 3 (three) months. meropenem-0.9% sodium chloride (MERREM) 500 mg/50 mL Infuse 1 g into a venous catheter every 8 (eight) hours . metoprolol succinate (TOPROL-XL) 25 MG 24 hr tablet Take 12.5 mg by mouth daily. morphine concentrated solution 20 mg/mL Give 0.25 mL (5 mg total) by G-tube route 2 (two) times a day as needed for pain. multivitamin (THERAGRAN) per tablet 1 tablet by G-tube route every morning. omeprazole (PRILOSEC) 20 MG capsule 20 mg by G-tube route every morning . polyethylene glycol (MIRALAX) 17 gram powder Take 17 g by mouth every morning . promethazine (PHENERGAN) 12.5 MG suppository Insert 12.5 mg into the rectum every 6 (six) hours as needed for nausea. Review of Systems: Review of Systems Constitutional: Negative for activity change, appetite change, chills, diaphoresis, fatigue, fever and unexpected weight change. HENT: Negative for congestion, dental problem, drooling, ear discharge, ear pain, facial swelling, hearing loss, mouth sores, nosebleeds, postnasal drip, rhinorrhea, sinus pressure, sneezing, sore throat, tinnitus, trouble swallowing and voice change. Eyes: Negative for photophobia, pain, discharge, redness, itching and visual disturbance. Respiratory: Negative for apnea, cough, choking, chest tightness, shortness of breath, wheezing andstridor. Recurrent episodes of infection of chest Cardiovascular: Negative for chest pain, palpitations and leg swelling. Gastrointestinal: Negative for abdominal distention, abdominal pain, anal bleeding, blood in stool,constipation, diarrhea, nausea and rectal pain. GERD, dysphadia Endocrine: Negative for cold intolerance, heat intolerance, polydipsia, polyphagia and polyuria. Genitourinary: Negative for decreased urine volume, difficulty urinating, dysuria, enuresis, flank pain, frequency, genital sores, hematuria and urgency. Musculoskeletal: Positive for arthralgias, back pain, gait problem, joint swelling and myalgias. Negative for neck pain and neck stiffness. Skin: Negative for color change, pallor and rash. Allergic/Immunologic: Negative for environmental allergies, food allergies and immunocompromised state. Neurological: Positive for seizures and weakness. Negative for dizziness, tremors, syncope, facial asymmetry, speech difficulty, light-headedness, numbness and headaches. Hematological: Negative for adenopathy. Does not bruise/bleed easily. Psychiatric/Behavioral: Negative for agitation, behavioral problems, confusion, decreased concentration, dysphoric mood, hallucinations and self-injury. The patient is not nervous/anxious and is not hyperactive. Physical Examination: Vital Signs: BP (!) 85/62 Pulse (!) 106 Ht 4' 5 Wt 41.7 kg (92 lb) BMI 23.03 kg/m Physical Exam Constitutional: She appears well-developed and well-nourished. HENT: Head: Normocephalic. Right Ear: External ear normal. Left Ear: External ear normal. Nose: Nose normal. Mouth/Throat: Oropharynx is clear and moist. Eyes: Pupils are equal, round, and reactive to light. EOM are normal. Left eye exhibits no discharge. No scleral icterus. Neck: Normal range of motion. Neck supple. No JVD present. No tracheal deviation present. No thyromegaly present. Cardiovascular: Normal rate, regular rhythm, normal heart sounds and intact distal pulses. Exam reveals no gallop and no friction rub. No murmur heard. Pulmonary/Chest: No respiratory distress. She has no wheezes. She has no rales. She exhibits no tenderness. Abdominal: She exhibits no distension and no mass. There is no tenderness. There is no rebound and no guarding. Musculoskeletal: General: No tenderness, deformity or edema. Legs: Lymphadenopathy: She has no cervical adenopathy. Neurological: She displays normal reflexes. No cranial nerve deficit. She exhibits normal muscle tone. Coordination normal. Skin: No rash noted. No erythema. No pallor. Psychiatric: She has a normal mood and affect. Her behavior is normal. Judgment and thought contentnormal. documented in this encounter Discharge Instructions * Attachments The following attachments cannot be sent through Care Everywhere. 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 You were started on antibiotics which treated the sepsis and urinary tract infection. You were placed on a special bed tohelp prevent pressure on the wound and got assistance from wound care on how to care for the wound.Additionally, you were started on tube feeds and free water by a fancy stitcher that helped treat your high sodium level you had when you came in. A bone biopsy was done by orthopedics (bone doctors) and infectious disease doctors were also a part of your care to help figure out the best regimen for you. The cultures and biopsy were normal so you were discharged without any antibiotics. You had the following procedures done Debridement of skin, subcutaneous tissue, muscle, and bone of right ischium and ischial bone biopsyand culture on 12/02 by orthopedics. You had the following images done: CT of your chest, abdomen, and pelvis which showed an ulcer, bone infection, and abscess of your right ischium. Chest x-ray which showed no acute process. EKG which shows the electrical activity of your heart, which was normal. Changes in your medications include: Please start the nutrition regimen recommended to you. Please make the following changes to your tube feedings to help with wound healing. Please follow up with the following providers: Please follow up with your primary care provider and wound care. It is important that Claudine follow up with her wound care doctor for healing of her ulcer. Thank you for letting us be a part of your care. * Discharge [facility] - PHARMACY* Ila Rabago CPhT - 11/29/2018 9:48 AM EDT There may be medications on your list that you were prescribed or previously taking but you said you are no longer taking. These medications may still be important for your health. Please discuss these with the person who prescribed the medication(s) to you. * Additional Instructions* Onelia Acevedo DO - 11/29/2018 Osteomyelitis: Care Instructions Your Care Instructions Osteomyelitis (say gv-dyql-gq-mw-vv-RS-tus) is a bone infection. It is caused by bacteria. The bacteria can infect the bone where it has been injured, or they can be carried through the blood from another area in the body. Osteomyelitis can be a short- or long-term problem. It is treated with antibiotics. You may get theantibiotics as pills or through a needle in a vein (IV). You will probably get treatment in the hospital at first. The type of treatment depends on the type of bacteria causing the infection, the bones affected, and how bad the infection is. Sometimes people need surgery to drain pus from bone or to fix damaged bone. Short-term osteomyelitis that is treated right away usually can be cured. But the long-term form sometimes comes back after treatment. You can help your chances of stopping the infection by taking your medicines as directed. Follow-up care is a camejo part of your treatment and safety. Be sure to make and go to all appointments, and call your doctor if you are having problems. It's also a good idea to know your test resultsand keep a list of the medicines you take. How can you care for yourself at home? Take your antibiotics as directed. Do not stop taking them just because you feel better. You need to take the full course of antibiotics. Take pain medicines exactly as directed. ? If the doctor gave you a prescription medicine for pain, take it as prescribed. ? If you are not taking a prescription pain medicine, ask your doctor if you can take an segi-lli-rgtwqng medicine. Do mild exercise and stretching if your doctor says it is okay. This can help keep your bones and muscles healthy. Avoid strenuous work or exercise until your doctor says you can do it. Consider physical therapy if your doctor suggests it. Physical therapy may help you have a normal range of movement. Do not smoke. Smoking can slow healing of the infection. If you need help quitting, talk to your doctor about stop-smoking programs and medicines. These can increase your chances of quitting for good. When should you call for help? Call 911 anytime you think you may need emergency care. For example, call if: You have severe bone pain. Call your doctor now or seek immediate medical care if: You continue to have bone pain. You have signs of infection, such as: ? Increased pain, swelling, warmth, or redness. ? Red streaks leading from a wound. ? Pus draining from a wound. ? A fever. Watch closely for changes in your health, and be sure to contact your doctor if: You do not get better as expected. Where can you learn more? Log into your personal health record on https://e-contratoshart.[employer] and enter B364 in the Education box to learn more about Osteomyelitis: Care Instructions. Current as of: May 25, 2018 Content Version: 12.0 6971-3176 [employer]. Care instructions adapted under license by your healthcare professional. If you have questions about a medical condition or this instruction, always ask your healthcare professional. [employer] disclaims any warranty or liability for your use of this information. Pressure Injuries: Care Instructions Your Care Instructions A pressure injury on the skin is caused by constant pressure to that area. These injuries also called decubitus ulcers or bedsores may happen when you lie in bed or sit in a wheelchair for a long time. The constant pressure blocks the blood supply to the skin. This causes skin cells to and creates a sore. Pressure injuries usually occur over bony areas, such as the hips, lower back, elbows, heels, and shoulders. They also can occur in places where the skin folds over on itself. You may havemild redness or open sores that are harder to heal. Good care at home can help heal pressure injuries. You or your caregiver needs to check your skin every day for sores. You need good nutrition and plenty of fluids to keep your skin healthy and prevent new pressure injuries. Follow-up care is a camejo part of your treatment and safety. Be sure to make and go to all appointments, and call your doctor if you are having problems. It's also a good idea to know your test resultsand keep a list of the medicines you take. How can you care for yourself at home? If your doctor prescribed a medicated ointment or cream, use it exactly as prescribed. Call your doctor if you think you are having a problem with your medicine. Wash pressure injuries every day, or as often as your doctor recommends. Most tap water is safe, but follow the advice of your doctor or nurse. He or she may recommend that you use a saline solution.This is a salt and water solution that you can buy over the counter. Put on bandages as your doctor or project management specialist says. Keep healthy tissue around the sore clean and dry. Check your skin every day for sores (or have a caregiver do it). If you know what is causing the pressure that caused the sore, find a way to remove that pressure. To prevent pressure injuries Change your position or have your caregiver help you change your position often. You may need to dothis every 2 hours if you are in bed or every 15 minutes if you are in a wheelchair. This lowers the chance of making sores worse and getting new sores. Use special mattresses or other support. These may include low-pressure mattresses or cushions madeof foam that can be filled with air, water, beads, or fiber. Eat healthy foods with plenty of protein to help heal damaged skin and to help new skin grow. Try to stay at a healthy weight. Being overweight can lead to more pressure on your skin. Do not slide across sheets or slump in a chair or bed. Do not smoke. Smoking dries the skin and reduces its blood supply. If you need help quitting, talk to your doctor about stop-smoking programs and medicines. These can increase your chances of quitting for good. When should you call for help? Call your doctor now or seek immediate medical care if: You have signs of infection, such as: ? Increased pain, swelling, warmth, or redness. ? Red streaks leading from the sore. ? Pus draining from the sore. ? A fever. Watch closely for changes in your health, and be sure to contact your doctor if: Your pressure injuries are not healing. You have new pressure injuries. You need help changing positions in bed or in a chair. Your caregiver needs help to move you. Where can you learn more? Log into your personal health record on https://[employer] and enter F114 in the Education box to learn more about Pressure Injuries: Care Instructions. Current as of: May 25, 2018 Content Version: 12.0 9030-7983 [employer]. Care instructions adapted under license by your healthcare professional. If you have questions about a medical condition or this instruction, always ask your healthcare professional. [employer] disclaims any warranty or liability for your use of this information. Sepsis: Care Instructions Your Care Instructions Sepsis is an intense reaction to an infection. It can cause deadly damage to the body and lead to adangerously low blood pressure. You may have inflammation across large areas of your body. It can damage tissue and even go deep into your organs. Infections that can lead to sepsis include: A skin infection such as from a cut. A lung infection like pneumonia. A kidney infection. A gut infection such as E. coli. It's important to care for yourself and try to avoid infections so that you don't get sepsis again. Follow-up care is a camejo part of your treatment and safety. Be sure to make and go to all appointments, and call your doctor if you are having problems. It's also a good idea to know your test resultsand keep a list of the medicines you take. How can you care for yourself at home? If your doctor prescribed antibiotics, take them as directed. Do not stop taking them just because you feel better. You need to take the full course of antibiotics. Help prevent infections that could lead to sepsis: ? Try to avoid colds and flu. If you must be around people who have a cold or the flu, wash your hands often. And get a flu vaccine every year. ? Get a pneumococcal vaccine shot (to prevent pneumonia, meningitis, and other infections). If you have had one before, ask your doctor if you need another dose. ? Clean any wounds or scrapes. Do not smoke or use other tobacco products. When you quit smoking, you are less likely to get a cold, the flu, bronchitis, and pneumonia. If you need help quitting, talk to your doctor about stop-smoking programs and medicines. These can increase your chances of quitting for good. To prevent dehydration, drink plenty of fluids. Choose water and other caffeine- free clear liquids until you feel better. If you have kidney, heart, or liver disease and have to limit fluids, talk with your doctor before you increase the amount of fluids you drink. Eat a healthy diet. Include fruits, vegetables, and whole grains in your diet every day. If your doctor recommends it, try doing some physical activity. Walking is a good choice. Bit by bit, increase the amount you walk every day. When should you call for help? Stmp611 anytime you think you may need emergency care. For example, call if: You passed out (lost consciousness). Call your doctor now or seek immediate medical care if: You have symptoms of sepsis. These may include: ? Shortness of breath. ? A fast heart rate. ? Cool, pale, or clammy skin. ? Feeling confused. You are dizzy or lightheaded, or you feel like you may faint. You have a fever or chills. Watch closely for changes in your health, and be sure to contact your doctor if: You do not get better as expected. Where can you learn more? Log into your personal health record on https://[employer] and enter T383 in the Education box to learn more about Sepsis: Care Instructions. Current as of: May 22, 2018 Content Version: 12.0 8075-8582 [employer]. Care instructions adapted under license by your healthcare professional. If you have questions about a medical condition or this instruction, always ask your healthcare professional. [employer] disclaims any warranty or liability for your use of this information. in this encounter* Discharge Instr - Care Coordination* Zamzam Swartz MSW LSW - 09/25/2019 11:39 AM EST [facility] [phone] documented in this encounter* Discharge Instr - AVS First Page* Santosh Kelley DO - 10/24/2019 11:53 AM EST Claudine was admitted to [facility] for worsening muscle tightness and agitation. This can be caused by multiple things, and we are unclear at this point as to what caused these symptoms to get worse. We did find some abnormalities in her electrolytes, the most pressing was a elevated sodium. During hospitalization we treated her with a short course of antibiotics and corrected her sodium with water. Overall muscle tightness and agitation improved. At this time she is safe to be discharged. At this time she is stable enough for discharge, however, there are several things that should be done when leaving the hospital: 1. Please continue taking all your medications every day, as prescribed, without skipping any doses. 2. Please call to schedule follow up with Colette Goode MD (PCP) within 1 week of discharge from the hospital. We recommend lab work at your follow up, called basic metabolic panel and complete blood count. During this hospitalization your assessed by a dietitian who prescribed a new nutrition replacementplan: Nutrition Plan Please continue your normal replete tube feedings. We recommend using the Beneprotein with your tube feeds. Use 1 Beneprotein packet twice a day. Mix each packet with 60 mL's to 120 mL's of water. Then placed into PEG tube for feeding. Once feeding is complete please flush the line and PEG tube with 60 mL's of water. Then use 20 mL / hour of free water continuously. If Claudine has any new or worsening symptoms, please seek medical attention. Please seek medical care if you develop fevers, chest pain, shortness of breath, lightheadedness, abdominal pain, nausea/vomiting or diarrhea. These could be signs of further issues and you will need to be evaluated. It was a pleasure taking care of you during your hospital stay. Thank you for involving us in your treatment and good luck with your recovery. Warren Braden, Mathew * Discharge Instr - Wound* Carisa Tellez RN - 10/24/2019 12:06 PM EST Wound Care: Right Ischial Tuberosity Cleanse wound with sterile saline. Pack with Aquacel Ag rope, leaving a 6 strip for wicking. Coverwith a dry gaauze dressing. Change every three days. * Discharge Instr - Care Coordination* Bárbara Agrawal LSW - 10/22/2019 8:48 AM EST [facility] P: [phone] F: [phone] [facility] F: [phone] * Attachments The following attachments cannot be sent through Care Everywhere. * Cerebral Palsy: Pediatric (Northern Irish) * Dehydration (Northern Irish) documented in this encounter* Instructions* Elodia Garces CNP - 01/22/2020 [facility] EMERGENCY DEPARTMENT The physician and staff of the Emergency Department would like to thank you for choosing our facility for your health care needs. Our goal is to provide you with exceptional service. You may be receiving a survey in the mail following your visit. Because your feedback is very important to us, we hope you will take time to complete and return the survey. If, for any reason, you feel that you cannot rate us VERY GOOD or 5 for the service you received today, please request to talk with a Patient Conference And Event Organiser support staff so that we can address your concern while you are here. Thank you for choosing us for your healthcare needs. Call your Primary Care Provider (PCP) to schedule a follow up appointment to discuss your symptoms and your ER visit. If you do not have a PCP, you can contact the [facility] Physician Referral Service listed below to establish a PCP. Return to the ER as needed or for any worsening symptoms. You have undergone an emergency evaluation today. This is not a substitute for a comprehensive physical exam by a primary care physician. Please follow up with your primary care physician. There are often findings on laboratory evaluation and/or radiographic studies (x-rays, ct) that require follow up and further testing, but are not related to your emergency condition today Please follow up with your family doctor or one of your choosing. You may find a provider through the [facility]ician Referral Service by calling [phone] ([phone]) or by visiting: [email or web address] Seek medical attention immediately if you have worsening symptoms or other concerns. Claudine, Thank You for choosing us for your Emergency Care! * Attachments The following attachments cannot be sent through Care Everywhere. * PICC (Peripherally Inserted Central Catheter) (Northern Irish) documented in this encounter* Instructions* Kj Moncada DO - 05/04/2019 Keep the IV safe and clean and bandaged. Contact your wound clinic doctor tomorrow for your IV antibiotic therapy. Return to the ER for any worsening issues. documented in this encounter* Discharge Instr - AVS First Page* Jerri Munroe CNP - 03/22/2020 11:42 AM EDT Plan to start IV Meropenem on 03/23/20 for wound per outpatient wound care provider. * Attachments The following attachments cannot be sent through Care Everywhere. * UTI (Urinary Tract Infection): Female (Northern Irish) documented in this encounter* Instructions* Rene Dunaway MD - 11/27/2020 Thank you for choosing us for your Emergency Care! You have undergone an emergency evaluation today. This is not a substitute for a comprehensive physical exam by a primary care provider. Please follow up with your primary care physician. There are often findings on laboratory evaluation and/or radiographic studies (x-rays, ct) that require follow up and further testing, but are not related to your emergency condition today Please follow up with your family doctor or one of your choosing. You may find a provider through the [facility]ician Referral Service by calling [phone]) or by visiting [email or web address] Seek medical attention immediately if you have worsening symptoms or other concerns. Claudine, Thank You for choosing us for your Emergency Care! * Attachments The following attachments cannot be sent through Care Everywhere. * PICC (Peripherally Inserted Central Catheter) (Northern Irish) * Getting Treatment Through a PICC or Central Line: Video (Northern Irish) documented in this encounter Hospital Course * Gase Onelia Colon DO - 12/05/2018 1:33 PM EDT DISCHARGE SUMMARY Patient: Claudine Joseph Date of : 1990 Site: [facility] Family Provider: Colette Goode MD Admit Date: 11/28/2018 Discharge Date/Time: 12/05/18 Afternoon Disposition: Home Clinical Summary Hospital Course: Claudine Joseph is a 28 y.o. female patient of Colette Goode MD with a history of anoxic brain injury, cerebral palsy s/p baclofen pump, seizure, restrictive lung disease with chronic respiratory failure on 4L NC, aspiration, PEG tube, incontinence, chronic sacral ulcer, GERD, hypernatremia who presented to [facility] from home on 11/28/2018 with complaints of fever and increased respiratory requirements. She was found to be septic in the ED with unknown source, but likely due to chronic ischial osteomyelitis with abscess or uncomplicated UTI. Debridement of skin, subcutaneous tissue, muscle, and bone of right ischium and ischial bone biopsy and culture on 12/02 by Ortho. Bone cultures NGTD x72 hours and ischial bone biopsy showed chronic osteomyelitis and benign skin tissue. Discharge Diagnoses: Ischial Wound with Osteomyelitis and Abscess Chronic ischial ulcer on exam 1cm dm, probed to > 5cm. CT with Soft tissue thickening extends to right ischium where cortical erosive changes are seen, suggestive of osteomyelitis of underlying right ischium as seen on CT after second read. ESR mildly elevated to 38, CRP normal. Blood culturesx2 NG after 48 hours. S/p 3 days Vanco and Cefepime. Antibiotics discontinued 12/01 per ID recommendations to increase wound culture yield. Wound care consulted. Recommended dressing changes q3d. Packed with Aquacel, clear aid barrier ointment. Offloading. Morphine 5 mg BID PRN for pain. InfectiousDisease and Orthopedics consulted. Debridement, bone biopsy, and culture 12/02 by Ortho. Bone cultures NGTD x 72 hours and ischial bone biopsy showed chronic osteomyelitis and benign skin tissue. Nutritional Deficiency Patient likely dehydrated. Tube feeds through PEG. Pureed food every evening, Ensure, and TF/fluidsovernight. Received free water flushes which were eventually discontinued and switched to continue free water at 20 mL/hr. D5 infusion discontinued. Captain Waiter/Waitress consulted. Tube feeds initiated 11/30. Chronic hypoxic respiratory failure with hypercapnia Baseline severe restrictive lung disease 2/2 scoliosis. Home requirement 4L. Increased requirement on presentation. Patient back to below home O2 requirement of 4L or less. Spastic Cerebral Palsy Chronic. Complicated by seizure history. Managed with Baclofen pump (recently refilled 11/20), anti-epileptics, and PEG tube. Follows with Dr. Murphy. Requires straight cath intermittently. Continuedhome anti-epileptics (lamictal 250 mg BID and keppra 1000 mg BID) and intrathecal baclofen. Valium 6 mg PRN. Epilepsy Prior anoxic brain injury at . Continued home anti-epileptics (lamictal 250 mg BID and keppra 1000 mg BID) and intrathecal baclofen. Valium 6 mg PRN. Seizure precautions. GERD Per history. Continued PPI. Sepsis- resolved Etiology unknown but likely 2/2 osteomyelitis although other possibilities include urinary source or aspiration, pneumonia, pneumonitis given increased respiratory requirements. Presenting with [id number], HR 138, RR 25. CXR limited by rotation but with diffuse hazziness. Flu negative. UA with small LE, WBCs, many bacteria. Treated empirically with Vancomycin and Cefepime in ED. Blood cultures NGTD with plan to de-escalate. Urine culture pending. Lactic acid improved from 2.9 to 1.3 s/p 2L bolus in ED. Continue Vancomycin 750 mg IV q12h and Cefepime 2g IV q8h. RUE PICC line removed in ED (placed in April although not used since that time) Hypernatremia- resolved Chronic. Elevated to 157 on admission consistent with baseline. Etiology likely due to dehydration,fluid loss from chronic sacral wound, and inadequate free water with tube feeds. Down-trending appropriately. Continuous free water per tube at 20 mL/hr per nutrition. Tube feeds initiated on 11/30/18. Uncomplicated Urinary Tract Infection- adequately treated Patient incontinent, unable to provide history of urinary symptoms. Requires intermittent straight cath but otherwise wears diaper at home. UA with small LE, pyuria, and many bacteria. Possibility ofcolonization. Urine culture positive for >100,000 CFU/mL Klebsiella pneumonia susceptible to Cefepime. Received 3day course of Cefepime, which is sufficient for uncomplicated Klebsiella UTI per ID. Red Man Syndrome- resolved S/p completion of second vancomycin infusion. Patient with flushing of face, neck, upper chest, andshoulders. Benadryl 25 mg IV once given. Infusion rate halved for subsequent vancomycin infusions.No reaction after last dose at halved infusion rate. Surgeries: 12/02/18 INCISION AND DRAINAGE WITH BONE BIOPSY OF RIGHT ISCHIUM Consults: Procedures Hospitalize Patient To : Inpatient consult to Dietitian Inpatient consult to Enterostomal Therapy Inpatient consult to General Surgery Inpatient consult to Infectious Diseases Inpatient consult to Orthopedic Surgery Inpatient consult to Enterostomal Therapy Inpatient consult to Care Management Allergies: Levaquin [levofloxacin]; Lactose intolerance [lactase]; Penicillins; Ragweed; and Augmentin [amoxicillin-pot clavulanate] Discharge Diet: Tube Feeds Condition: Fair Discharge Medications: Current Discharge Medication List CONTINUE these medications which have NOT CHANGED Details acetaminophen (TYLENOL) 325 MG tablet 650 mg by G-tube route every 6 (six) hours as needed for pain. baclofen 40,000 mcg/20mL (2,000 mcg/mL) Syrg 670 mcg by Intrathecal route daily. Qty: 100 mL, Refills: 0 Comments: Fax to [facility] at [phone] cholecalciferol, vitamin D3, (VITAMIN D3) 2,000 unit cap 2,000 Units by G-tube route every morning. diazePAM (VALIUM) 2 MG tablet Take 3 tablets by mouth once daily as needed for seizure activity . Qty: 30 tablet, Refills: 2 Associated Diagnoses: Intractable symptomatic generalized epilepsy (HCC) fluticasone (FLONASE) 50 mcg/actuation nasal spray 2 sprays into each nostril daily as needed for rhinitis. guaiFENesin (ROBITUSSIN) 100 mg/5 mL syrup 200 mg by G-tube route 3 (three) times a day as needed for cough . !! lamoTRIgine (LAMICTAL) 100 MG tablet Take 1 (one) tablet (100 mg total) by mouth 2 (two) times aday . Qty: 60 tablet, Refills: 11 Comments: Please consider 90 day supplies to promote better adherence Associated Diagnoses: Intractable symptomatic generalized epilepsy (HCC) !! lamoTRIgine (LAMICTAL) 150 MG tablet Take 1 (one) tablet (150 mg total) by mouth 2 (two) times aday Take with the Lamictal 100 mg tablets bid for a total of 250 mg bid. . Qty: 60 tablet, Refills: 11 levETIRAcetam (KEPPRA) 100 mg/mL solution Take 10 mL (1,000 mg total) by mouth 2 (two) times a day . Qty: 600 mL, Refills: 11 Associated Diagnoses: Intractable symptomatic generalized epilepsy (HCC) loratadine (CLARITIN) 10 mg tablet 10 mg by G-tube route every morning . medroxyPROGESTERone (DEPO-PROVERA) 150 mg/mL injection Inject 150 mg into the shoulder, thigh, or buttocks every 3 (three) months. metoprolol succinate (TOPROL-XL) 25 MG 24 hr tablet Take 12.5 mg by mouth daily. multivitamin (THERAGRAN) per tablet 1 tablet by G-tube route every morning. omeprazole (PRILOSEC) 20 MG capsule 20 mg by G-tube route every morning . polyethylene glycol (MIRALAX) 17 gram powder Take 17 g by mouth every morning . promethazine (PHENERGAN) 12.5 MG suppository Insert 12.5 mg into the rectum every 6 (six) hours as needed for nausea. baclofen (LIORESAL) 20 MG tablet Take 1 tablet as needed for baclofen withdrawal. Qty: 30 tablet, Refills: 3 Associated Diagnoses: Spasticity ipratropium (ATROVENT) 0.02 % nebulizer solution Do one breathing treatment twice daily. If she is congested or wheezing or labored, she can do this 4 times daily.. Qty: 300 mL, Refills: 12 Associated Diagnoses: Restrictive lung disease due to kyphoscoliosis; Aspiration, chronic pulmonary, initial encounter !! - Potential duplicate medications found. Please discuss with provider. Physician(s) Family Provider: Colette Goode MD, Address: [address] [facility] [address] Follow Up: [place] [address] [facility] [address] Follow up Please schedule an appointment for hospital follow up. Marielle Duque MD [address] [phone] Follow up Please follow up as soon as possible for wound care. Patient instructions, including activity, were given to the patient/family at discharge. Please seethe After Visit Summary in the electronic medical record for details. Time spent on discharge: < 30 minutes Completed by: Onelia Colon DO on 12/05/18, 1:33 PM in this encounter* Marck June DO - 02/14/2020 10:20 AM EDT MEDONE DISCHARGE SUMMARY Claudine Joseph Account: [id number] Admitted: 02/12/2020 Discharge Date/Time: 02/14/20 2:46 PM Handoff to PCP PCP to address the following 1. Continue doxycycline if needed after clindamycin course completed. Clinical Summary Claudine Joseph is a 29 y.o. female with a history of spastic cerebral palsy, quadriplegia, chronic respiratory failure, seizures, decubitus ulcers with wound vac, chronic sage, and feeding tube who presented to [facility] 02/12/2020 with cough and fever. Found to be septic on arrival due to aspiration PNA. 1. Sepsis due to Aspiration Pneumonia: sepsis was present on admit. Per patient's mother, pt had anepisode of vomiting on 02/10/20 and likely aspirated at that time as they could not suction her quick enough. The following day, she started coughing and was dyspneic. Developed fever on 02/12/20. CXR on admit limited due to pt's position, showed small amount of bibasilar atelectasis vs early infiltrates. U/A on admit positive for infection, however has chronic sage. Urine culture 02/13/20 in process (should not have been collected as it was inconsequential). Blood cultures x2 02/12/20 negative todate. Empiric zosyn/vanco, transitioned to rocephin on 02/13/20, transition to clindamycin for totalof 7 day course. 2. Lactic Acidosis: with lactate 4.0 on admit. Resolved with IV fluids/abx. 3. Chronic Hypoxic Respiratory Failure: on 4-5 L O2 via NC. Stable on admission. 4. Spastic Cerebral Palsy: complicated by quadriplegia, seizures, decubitus ulcers, and dysphagia. Nonverbal at baseline, but able to communicate via blinking. Has intrathecal baclofen pump (filled last week). 5. Chronic Seizures: per hx, continued to have minor breakthrough seizure despite compliance with multiple AEDs. No major recent seizures. Continued lamictal, keppra, and CBD oil, with PRN valium. 6. Chronic Wound: due to pressure injury POA. Has wound VAC in place. Follows with wound care clinic. Held home suppressive doxycycline while on IV antibiotic, resume when able. ET RN followed. 7. Chronic Dysphagia: as above, PEG tube in place, resumed tube feeding. Captain Waiter/Waitress followed. 8. Chronic Urinary Retention: as above, chronic sage in place, exchanged by mother at home, requested exchange while inpatient. Discharge Medications Medication List START taking these medications clindamycin 75 mg/5 mL solution Commonly known as: CLEOCIN Take 20 mL (300 mg total) by mouth every 6 (six) hours for 5 days . CHANGE how you take these medications Epidiolex 100 mg/mL Soln Generic drug: cannabidioL TAKE 3.2 ML BY MOUTH TWICE DAILY What changed: how much to take how to take this additional instructions CONTINUE taking these medications acetaminophen 325 MG tablet Commonly known as: TYLENOL baclofen 40,000 mcg/20mL (2,000 mcg/mL) Syrg 649 mcg by Intrathecal route daily . CENTRUM ORAL diazePAM 2 MG tablet Commonly known as: VALIUM fluticasone propionate 50 mcg/actuation nasal spray Commonly known as: FLONASE Instill 1 (one) spray into each nostril daily as needed for rhinitis . guaiFENesin 100 mg/5 mL syrup Commonly known as: ROBITUSSIN ipratropium 0.02 % nebulizer solution Commonly known as: ATROVENT Do one breathing treatment twice daily. If she is congested or wheezing or labored, she can do this4 times daily. . * lamoTRIgine 100 MG tablet Commonly known as: LAMICTAL * lamoTRIgine 150 MG tablet Commonly known as: LAMICTAL levETIRAcetam 100 mg/mL solution Commonly known as: KEPPRA Notes to patient: 1000 mg lidocaine-prilocaine cream Commonly known as: EMLA Apply topically as needed . loratadine 10 mg tablet Commonly known as: CLARITIN metoprolol succinate 25 MG 24 hr tablet Commonly known as: TOPROL-XL montelukast 10 mg tablet Commonly known as: SINGULAIR omeprazole 20 MG capsule Commonly known as: PRILOSEC polyethylene glycol 17 gram powder Commonly known as: MIRALAX promethazine 12.5 MG suppository Commonly known as: PHENERGAN Vitamin D3 50 mcg (2,000 unit) Cap Generic drug: cholecalciferol (vitamin D3) whey protein isolate 6 gram-25 kcal/7 gram Powd * This list has 2 medication(s) that are the same as other medications prescribed for you. Read thedirections carefully, and ask your doctor or other care provider to review them with you. STOP taking these medications doxycycline hyclate 100 MG capsule Commonly known as: VIBRAMYCIN Where to Get Your Medications These medications were sent to [facility] [address] [place] [id number] clindamycin 75 mg/5 mL solution Physician(s) Family: Colette Goode MD, , Address: [address] [place] [address] [place] [address] Follow Up: Elroy Henning, DIRECTOR OF GLOBAL SALES [address] [facility] [address] Go on 02/19/2020 Appointment at 2pm; please call by Wednesday to cancel if unable to [place] [address] [facility] [address] Go in 1 week(s) Additional Information: Patient seen and examined day of discharge. For more information regarding patient's care, including complete radiology reports, please contact [facility] at Patient instructions, including activity, were given to the patient/family at discharge. Please seethe After Visit Summary in the medical record for details. Time spent on discharge: > 30 minutes Completed by: Marck June on 02/14/20, 2:46 PM documented in this encounter* Elodia Mendoza MD - 08/13/2020 5:44 PM EST MEDONE DISCHARGE SUMMARY Claudine Joseph Account: [id number] Admitted: 08/13/2020 Discharge Date/Time: 08/13/20 / 6:34 PM Handoff to PCP PCP to address the following 1. Pending blood cultures 2. Confirm antibiotic and wound care plan 3. PICC placement Clinical Summary Claudine Joseph is a 30 y.o. female with a history of spastic cerebral palsy, quadriplegia, chronic respiratory failure, seizures, decubitus ulcers with wound vac, chronic sage and PEG tube and recent admission 03/21/20 for sepsis due to UTI who presented to [facility] 08/13/2020 with for wound infection, reportedly needs a PICC line. On admission, pt without leukocytosis or lactic acidosis. BP 82/61 in ED, improved with IVF. Discharged AMA with caregiver with peripheral IV. 1. Chronic Sacral Pressure Wound: pt with known pressure injuries previously with wound vac. Wound cx as outpatient growing pseudomonas and enterobacter (per mother, no official results). Follows with Dr. Marielle Duque out of [facility] for wound care, next appt 08/16/20. Pt already has home meropenem infusion set up per Dr. Duque and presents for PICC line placement (hx of bad experience at [facility]). Blood Cx x 2 08/13/20. Recommended 24 hour neg cultures prior to access placement, family left AMA. 2. Hypotension: BP 82/61 on admit, did improve some with IVF. Per family BP fluctuates . 3. Chronic hypoxic respiratory failure: due to prior MRSA pneumonia and subsequent restrictive lungdisease. Chronically on 2L NC. 4. 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 Non verbal at baseline. Communicates some via blinking. Has intrathecal baclofen pump. Discharged with caregiver AMA Discharge Medications Medication List ASK your doctor about these medications acetaminophen 325 MG tablet Commonly known as: TYLENOL baclofen 40,000 mcg/20mL (2,000 mcg/mL) Syrg 649 mcg by Intrathecal route daily . CENTRUM ORAL diazePAM 2 MG tablet Commonly known as: VALIUM 3 (three) tablets (6 mg total) by Per G Tube route daily as needed For seizures . doxycycline hyclate 100 MG capsule Commonly known as: VIBRAMYCIN Epidiolex 100 mg/mL Soln Generic drug: cannabidioL Take 3.2 mL by mouth 2 (two) times a day . fluticasone propionate 50 mcg/actuation nasal spray Commonly known as: FLONASE Instill 1 (one) spray into each nostril daily as needed for rhinitis . guaiFENesin 100 mg/5 mL syrup Commonly known as: ROBITUSSIN ipratropium 0.02 % nebulizer solution Commonly known as: ATROVENT Do one breathing treatment twice daily. If she is congested or wheezing or labored, she can do this4 times daily. . * lamoTRIgine 100 MG tablet Commonly known as: LAMICTAL 1 (one) tablet (100 mg total) by Per G Tube route 2 (two) times a day Take with 150mg tablet . * lamoTRIgine 150 MG tablet Commonly known as: LAMICTAL 1 (one) tablet (150 mg total) by Per G Tube route 2 (two) times a day Take with 100mg tablet . levETIRAcetam 100 mg/mL solution Commonly known as: KEPPRA TAKE 10 ML BY MOUTH TWICE DAILY loratadine 10 mg tablet Commonly known as: CLARITIN medroxyPROGESTERone 150 mg/mL Syrg Commonly known as: DEPO-PROVERA metoprolol succinate 25 MG 24 hr tablet Commonly known as: TOPROL-XL montelukast 10 mg tablet Commonly known as: SINGULAIR omeprazole 40 MG capsule Commonly known as: PRILOSEC polyethylene glycol 17 gram powder Commonly known as: MIRALAX promethazine 12.5 MG suppository Commonly known as: PHENERGAN Vitamin D3 50 mcg (2,000 unit) Cap Generic drug: cholecalciferol (vitamin D3) * This list has 2 medication(s) that are the same as other medications prescribed for you. Read thedirections carefully, and ask your doctor or other care provider to review them with you. Physician(s) Family: Colette Goode MD, , Address: [address] [place] [address] Follow Up: No follow-up provider specified. Additional Information: Patient seen and examined day of discharge. For more information regarding patient's care, including complete radiology reports, please contact [facility] at Patient instructions, including activity, were given to the patient/family at discharge. Please seethe After Visit Summary in the medical record for details. Time spent on discharge: > 30 minutes Completed by: Elodia Mendoza on 08/13/20, 6:34 PM documented in this encounter* Charline Richardson MD - 09/25/2020 12:02 PM EST MEDONE DISCHARGE SUMMARY Claudine Joseph Account: [id number] Admitted: 09/23/2020 Discharge Date/Time: 09/25/20 12:02 PM Handoff to PCP Routine hospital follow up Clinical Summary Claudine Joseph is a 30 y.o. female with a history of spastic cerebral palsy, quadriplegia, chronic respiratory failure, seizures, decubitus ulcers with wound vac, chronic sage and PEG tube who presented to [facility] 09/23/2020 with need for placement, found to be COVID-19 positive on admit. 1. COVID-19 Infection: Tested positive 09/23/20. Appears asymptomatic but difficult to evaluate due to nonverbal status. No increased O2 requirements. Supportive care. 2. Need for Placement: patient presented to [facility] for outpatient appointment but mother had syncopal episode requiring hospitalization. Patient has no one else to care for her. Initially planned for placement but mother was discharged from the hospital 09/25/2020 and able to care for the patient 3. Chronic Hypoxic Respiratory Failure: due to prior MRSA pneumonia and subsequent restrictive lungdisease. On 2L NC at baseline, RA on admit. 4. Spastic Cerebral Palsy: complicated by quadriplegia, seizures, decubitus ulcers and dysphagia. Non verbal at baseline. Communicates some via blinking. Has intrathecal baclofen pump in place. 5. Epilepsy: On multiple AEDs with known minor breatkthrough seizures. Continued home Keppra, Lamictal. Discharge Medications Medication List CONTINUE taking these medications acetaminophen 325 MG tablet Commonly known as: TYLENOL CENTRUM ORAL diazePAM 2 MG tablet Commonly known as: VALIUM 3 (three) tablets (6 mg total) by Per G Tube route daily as needed For seizures . doxycycline hyclate 100 MG capsule Commonly known as: VIBRAMYCIN Epidiolex 100 mg/mL Soln Generic drug: cannabidioL Take 3.2 mL by mouth 2 (two) times a day . fluticasone propionate 50 mcg/actuation nasal spray Commonly known as: FLONASE Instill 1 (one) spray into each nostril daily as needed for rhinitis . guaiFENesin 100 mg/5 mL syrup Commonly known as: ROBITUSSIN ipratropium 0.02 % nebulizer solution Commonly known as: ATROVENT Do one breathing treatment twice daily. If she is congested or wheezing or labored, she can do this4 times daily. . * lamoTRIgine 100 MG tablet Commonly known as: LAMICTAL 1 (one) tablet (100 mg total) by Per G Tube route 2 (two) times a day Take with 150mg tablet . * lamoTRIgine 150 MG tablet Commonly known as: LAMICTAL 1 (one) tablet (150 mg total) by Per G Tube route 2 (two) times a day Take with 100mg tablet . levETIRAcetam 100 mg/mL solution Commonly known as: KEPPRA TAKE 10 ML BY MOUTH TWICE DAILY loratadine 10 mg tablet Commonly known as: CLARITIN medroxyPROGESTERone 150 mg/mL Syrg Commonly known as: DEPO-PROVERA metoprolol succinate 25 MG 24 hr tablet Commonly known as: TOPROL-XL montelukast 10 mg tablet Commonly known as: SINGULAIR omeprazole 40 MG capsule Commonly known as: PRILOSEC polyethylene glycol 17 gram powder Commonly known as: MIRALAX promethazine 12.5 MG suppository Commonly known as: PHENERGAN Vitamin D3 50 mcg (2,000 unit) Cap Generic drug: cholecalciferol (vitamin D3) * This list has 2 medication(s) that are the same as other medications prescribed for you. Read thedirections carefully, and ask your doctor or other care provider to review them with you. STOP taking these medications baclofen 40,000 mcg/20mL (2,000 mcg/mL) Syrg Physician(s) Family: Colette Goode MD, , Address: [address] [place] [address] Follow Up: Colette Goode MD [address] [place] [address] Schedule an appointment as soon as possible for a visit in 1 week(s) Additional Information: Patient seen and examined day of discharge. For more information regarding patient's care, including complete radiology reports, please contact [facility] at Patient instructions, including activity, were given to the patient/family at discharge. Please seethe After Visit Summary in the medical record for details. Time spent on discharge: > 30 minutes Completed by: Charline Richardson on 09/25/20, 12:02 PM documented in this encounter* Jerri Munroe, ROCKY - 03/22/2020 1:27 PM EDT MEDONE DISCHARGE SUMMARY Claudine Joseph Account: [id number] Admitted: 03/21/2020 Discharge Date/Time: 03/22/20 / 1:27 PM Handoff to PCP Routine hospital follow up Clinical Summary Claudine Joseph is a 29 y.o. female with a history of spastic cerebral palsy, quadriplegia, chronic respiratory failure, seizures, decubitus ulcers with wound vac, chronic sage and PEG tube with recent admission 02/11-02/14/20 for sepsis due to aspiration pneumonia. She represented to [facility] 03/21/2020 with concern for sepsis by mother due to change in behaviour. BP 84/56 on arrival, afebrile. UA abnormal but no leukocytosis or lactic acidosis. 1. Sepsis due to acute UTI: presented with SBP 80s due to possible UTI although with chronic Sage.Urine and blood cultures pending. BP normalized with holding home BB and giving IVF. IV Rocephin given in ED, plan for 3 doses of Omnicef and then to start Meropenem as outpatient as below. Resumed BB at discharge. 2. Chronic hypoxic respiratory failure: due to prior MRSA pneumonia and subsequent restrictive lungdisease. On 4-5 L via NC, at baseline on admit. 3. 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 Non verbal at baseline. Communicates some via blinking. Has intrathecal baclofen pump. 4. Chronic seizures: per history. On multiple AEDs with known minor breatkthrough seizures. Continued home Keppra, Lamictal, Epidiolex. 5. Chronic wound: present on admission, due to pressure injury. Follows with wound care clinic. Wound vac in place. On suppressive doxycycline with Meropenem planned to start on 03/23/20 due to positive wound culture. Records requested. Wound care following. Midline IV requested on 03/22/20--pt will discharge with this. 6. Chronic dysphagia: Peg tube in place. TFs per fancy stitcher. 7. Chronic urinary retention: with chronic Sage. Discharge Medications Medication List START taking these medications cefdinir 125 mg/5 mL suspension Commonly known as: OMNICEF Take 12 mL (300 mg total) by mouth 2 (two) times a day for 3 doses . *Discard remaining solution* CHANGE how you take these medications Epidiolex 100 mg/mL Soln Generic drug: cannabidioL TAKE 3.2 ML BY MOUTH TWICE DAILY What changed: how much to take how to take this additional instructions CONTINUE taking these medications acetaminophen 325 MG tablet Commonly known as: TYLENOL baclofen 40,000 mcg/20mL (2,000 mcg/mL) Syrg 649 mcg by Intrathecal route daily . CENTRUM ORAL diazePAM 2 MG tablet Commonly known as: VALIUM fluticasone propionate 50 mcg/actuation nasal spray Commonly known as: FLONASE Instill 1 (one) spray into each nostril daily as needed for rhinitis . guaiFENesin 100 mg/5 mL syrup Commonly known as: ROBITUSSIN ipratropium 0.02 % nebulizer solution Commonly known as: ATROVENT Do one breathing treatment twice daily. If she is congested or wheezing or labored, she can do this4 times daily. . * lamoTRIgine 100 MG tablet Commonly known as: LAMICTAL * lamoTRIgine 150 MG tablet Commonly known as: LAMICTAL levETIRAcetam 100 mg/mL solution Commonly known as: KEPPRA loratadine 10 mg tablet Commonly known as: CLARITIN metoprolol succinate 25 MG 24 hr tablet Commonly known as: TOPROL-XL montelukast 10 mg tablet Commonly known as: SINGULAIR omeprazole 40 MG capsule Commonly known as: PRILOSEC polyethylene glycol 17 gram powder Commonly known as: MIRALAX promethazine 12.5 MG suppository Commonly known as: PHENERGAN Vitamin D3 50 mcg (2,000 unit) Cap Generic drug: cholecalciferol (vitamin D3) whey protein isolate 6 gram-25 kcal/7 gram Powd * This list has 2 medication(s) that are the same as other medications prescribed for you. Read thedirections carefully, and ask your doctor or other care provider to review them with you. STOP taking these medications doxycycline hyclate 100 MG capsule Commonly known as: VIBRAMYCIN Where to Get Your Medications These medications were sent to [facility] [address] [address] Hours: 8:00 AM to 7:00 PM Mon-Fri cefdinir 125 mg/5 mL suspension Physician(s) Family: Colette Goode MD, , Address: [address] [place], [place] [id number] Follow Up: Colette Goode MD [address] [place], [place] [id number] Follow up Please call to arrange 1-2 week follow up. Wound Care Clinic Follow up Please follow up as already scheduled. Additional Information: Patient seen and examined day of discharge. For more information regarding patient's care, including complete radiology reports, please contact [facility] at Patient instructions, including activity, were given to the patient/family at discharge. Please seethe After Visit Summary in the medical record for details. Time spent on discharge: > 30 minutes Completed by: Jerri Munroe on 03/22/20, 1:27 PM Associated attestation - Leonidas Tay MD - 03/22/2020 1:43 PM EDT I saw and evaluated the patient independently. Discussed case with Jerri Munroe CNP. I personallyreviewed their note and agree with their history, exam, and plan of care. All laboratory and imagespersonally reviewed. Chart reviewed, including documentation from previous hospitalizations and it systems analyst consultant recommendations as summarized below. Briefly, patient with history of spastic cerebral palsy, quadriplegia, chronic respiratory failure,seizures, decubitus ulcers w/ wound vac who presented with hypotension and behavior changes per mother. Found to have likely UTI and SBP in 80s on admit. She responded to fluid bolus. No lactic acidosis,ongoing fevers, recurrent hypotension. Mother reports plan for midline insertion and to start IV meropenem due to + wound culture from herchronic wound. We requested records but it appears we were not sent the most recent one as this culture from December is pretty sensitive. Defer need and duration of meropenem to her outpatient providers - is to start 03/23/20 per mother. We will place midline today to help facilitate continuity of care s anushka she missed her OP appointment for this. Clinically, no apparent cellulitis around wound. UTI treated with ceftriaxone - to place on cefdinir until meropenem started for above - gretchen will cover any UTI bugs. Did have short seizure overnight and received valium. Mother reports this is typical for patient. No further testing at this time. Patient back to baseline per mother so I think it is safe for her to d/c from hospital today. documented in this encounter Reason for Referral Status Reason Specialty Diagnoses / Procedures Referred By Contact Referred To Contact Pending Review Radiology Diagnoses Wound healing, delayed Procedures NM White Blood Cell SPECT Wilder Noland MD [address] [place] [address] Status Reason Specialty Diagnoses / Procedures Referred By Contact Referred To Contact Pending Review Radiology Diagnoses Wound healing, delayed Procedures NM Bone Limited Study Wilder Noland MD [address] [phone] Status Reason Specialty Diagnoses / Procedures Referred By Contact Referred To Contact Pending Review Radiology Diagnoses Wound healing, delayed Procedures NM White Blood Cell Prep Wilder Noland MD [address] [place] [address] Status Reason Specialty Diagnoses / Procedures Referred By Contact Referred To Contact Authorized Specialty Services Required/[facility] Diagnoses Sepsis, due to unspecified organism, unspecified whether acute organ dysfunction present (HCC) Acute on chronic respiratory failure with hypoxia and hypercapnia (HCC) 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HCC) Rashid Mejia MD [address] [address] Status Reason Specialty Diagnoses / Procedures Referred By Contact Referred To Contact Pending Review [facility] Diagnoses Severe sepsis (HCC) Cerebral palsy, unspecified type (HCC) Bashir Carmona MD [address] [place] [address] Status Reason Specialty Diagnoses / Procedures Referred By Contact Referred To Contact Pending Review Specialty Services Required/[facility] Diagnoses Severe sepsis (HCC) Bashir Carmona MD [address] [place] [address] Status Reason Specialty Diagnoses / Procedures Referred By Contact Referred To Contact Pending Review Specialty Services Required/Patie nt's Best Interest General Surgery Diagnoses Pressure injury of right ischium, stage 3 (HCC) Other cerebral palsy (HCC) Incontinence of feces, unspecified fecal incontinence type Werner Kaplan Jr., MD [address] [place] [address] Wilder Cross DO [address] [place] [address] Status Reason Specialty Diagnoses / Procedures Referred By Contact Referred To Contact Authorized Specialty Services Required/Patien t's Best Interest Urology Diagnoses Pressure injury of right ischium, stage 3 (HCC) Other cerebral palsy (HCC) Other urinary incontinence Werner Kaplan Jr., MD [address] [place] [address] Marielle Salgado MD [address] [facility] [address] [place] [address] Status Reason Specialty Diagnoses / Procedures Referred By Contact Referred To Contact Authorized Specialty Services Required/Patien t's Best Interest General Surgery Diagnoses Pressure injury of right ischium, stage 3 (HCC) Werner Kaplan Jr., MD [address] [place] [address] Wilder Cross DO [address] [facility] [address] [place] [address] Specialty Diagnoses / Procedures Referred By Contac t Referred To Contact Rehabilitation Diagnoses Cerebral palsy, unspecified type (HCC) Stage II pressure ulcer of right buttock (HCC) DustinCynthia Mary, DIRECTOR OF GLOBAL SALES [address] [place] [address] Rehab Wheelchair [place] [id number] [place] [address] Referral ID Status Reason Start Date Expiration Date V isits Requested Visits Authorized [id number] Authorized 04/14/2021 04/14/2022 1 1 Specialty Diagnoses / Procedures Referred By Contac t Referred To Contact Diagnoses 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HCC) Ruma Godwin, DIRECTOR OF GLOBAL SALES [address] [facility] [address] [place] [address] SERVICE [address] IN SYSTEM Referral ID Status Reason Start Date Expiration Date Visits Requested Visits Authorized [id number] Authorized Specialty Services Required/Pat ient's Best Interest 05/06/2021 05/06/2022 1 1 Specialty Diagnoses / Procedures Referred By Contact Referred To Contact Pediatric Gastroenterology / Gastroenterology Diagnoses Gastrostomy tube dysfunction (HCC) Yany Wright, DIRECTOR OF GLOBAL SALES [address] [facility] [address] [place] [address] Referral ID Status Reason Start Date Expiration Date V isits Requested Visits Authorized [id number] Authorized 06/18/2021 06/18/2022 1 1 Referral ID Status Reason Start Date Expiration Date V isits Requested Visits Authorized [id number] Closed Specialty Services Required/Lupis ent's Best Interest 05/06/2021 05/06/2022 1 1 Specialty Diagnoses / Procedures Referred By Contac t Referred To Contact Home Health Services Diagnoses 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HCC) Donna Brush, DIRECTOR OF GLOBAL SALES [address] [facility] [address] [place] [address] Referral ID Status Reason Start Date Expiration Date Visits Requested Visits Authorized [id number] Authorized Specialty Services Required/Pat ient's Best Interest 08/27/2022 1 1 Specialty Diagnoses / Procedures Referred By Contac t Referred To Contact Home Health Services Diagnoses Seizure (HCC) Intrathecal pump infection, initial encounter (HCC) Breakdown (mechanical) of other nervous system device, implant or graft, sequela Khadar Yoo MD [facility] [facility] [address] [place] [address] Referral ID Status Reason Start Date Expiration Date Visits Requested Visits Authorized [id number] Pending Review Patient Preference 2 07/20/2023 1 1 Specialty Diagnoses / Procedures Referred By Contac t Referred To Contact Neurology Diagnoses Cervical dystonia Celena Fields MD [address] [place] [address] [place] [address] Referral ID Status Reason Start Date Expiration Date Visits Requested Visits Authorized [id number] Authorized Specialty Services Required/Pat ient's Best Interest 10/20/2022 10/20/2023 1 1 Scheduling Instructions With a movement disorder specialist please for cervical dystonia. Specialty Diagnoses / Procedures Referred By Contac t Referred To Contact Diagnoses 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HCC) Celena Fields MD [address] [facility] [address] [place] [address] SERVICE [address] IN SYSTEM Referral ID Status Reason Start Date Expiration Date V isits Requested Visits Authorized [id number] Closed Specialty Services Required/Lupis ent's Best Interest 11/03/2022 11/03/2023 1 1 Specialty Diagnoses / Procedures Referred By Contac t Referred To Contact Home Health Services Diagnoses Spasticity Cerebral palsy, unspecified type ([place]) [place] [address] [place] [address] [place] [address] Referral ID Status Reason Start Date Expiration Date Visits Requested Visits Authorized [id number] Authorized Specialty Services Required/Pat ient's Best Interest 02/03/2023 02/03/2024 1 1 Scheduling Instructions [facility] [phone] Specialty Diagnoses / Procedures Referred By Contac t Referred To Contact Diagnoses 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HCC) Madisyn Marquez, DIRECTOR OF GLOBAL SALES [address] [facility] [address] [place] [address] Referral ID Status Reason Start Date Expiration Date Visits Re quested Visits Authorized [id number] Closed 1 1 Specialty Diagnoses / Procedures Referred By Contac t Referred To Contact Yany Wright, DIRECTOR OF GLOBAL SALES [address] [facility] [address] [place] [address] Referral ID Status Reason Start Date Expiration Date Visits Re quested Visits Authorized [id number] Closed 1 1 Specialty Diagnoses / Procedures Referred By Contac t Referred To Contact Diagnoses Intractable symptomatic generalized epilepsy (HCC) Yany Wright, DIRECTOR OF GLOBAL SALES [address] [facility] [address] [place] [address] Referral ID Status Reason Start Date Expiration Date Visits Re quested Visits Authorized [id number] Closed 1 1 Specialty Diagnoses / Procedures Referred By Contac t Referred To Contact Rehabilitation Diagnoses Spasticity 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HCC) Ruma Godwin, DIRECTOR OF [employer]LOBAL SALES [address] [facility] [address] [place] [address] Referral ID Status Reason Start Date Expiration Date V isits Requested Visits Authorized [id number] Authorized 12/13/2023 12/12/2024 1 1 Specialty Diagnoses / Procedures Referred By Contac t Referred To Contact Diagnoses Intractable symptomatic generalized epilepsy (HCC) Richar Talbert MD [address] [facility] [address] [place] [address] Referral ID Status Reason Start Date Expiration Date Visits Re quested Visits Authorized [id number] Closed 1 1 Referral ID Status Reason Start Date Expiration Date Visits Re quested Visits Authorized [id number] Closed 02/21/2024 02/20/2025 1 1 Referral ID Status Reason Start Date Expiration Date Visits Re quested Visits Authorized [id number] Closed 1 1 Specialty Diagnoses / Procedures Referred By Contac t Referred To Contact Diagnoses 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[facility]) Ruma Godwin, DIRECTOR OF GLOBAL SALES [address] [facility] [address] [place] [address] Referral ID Status Reason Start Date Expiration Date Visits Re quested Visits Authorized [id number] Closed 1 1 Specialty Diagnoses / Procedures Referred By Contac t Referred To Contact Diagnoses Seizure disorder ([facility]) Yany Wright, DIRECTOR OF GLOBAL SALES [address] [facility] [address] [place] [address] Referral ID Status Reason Start Date Expiration Date Visits Re quested Visits Authorized [id number] Closed 1 1 Chief Complaint and Reason for Visit Chief Complaint Admit Date wound March 14, 2025 12:2 2pm wound March 22, 2025 4:02 pm wound March 29, 2025 1:15 pm Reason for Visit Admit Date Anemia March 29, 2025 1:15 pm Celiac disease March 29, 2025 1:15 pm Decubitus ulcer of right buttock, stage 4 March 29, 2025 1:15pm Fecal incontinence March 29, 2025 1:15 pm Incontinence of urine March 29, 2025 1: 15pm Malnutrition March 29, 2025 1:15 pm Milk intolerance March 29, 2025 1:15 pm Quadriplegic infantile cerebral palsy Ju ly 2024 1:15pm Chief Complaint Admit Date wound March 14, 2025 12:2 2pm wound March 22, 2025 4:02 pm wound March 29, 2025 1:15 pm wound March 29, 2025 3:36 pm wound April 05, 2025 1:1 5pm INT LAB ORDERS April 05, 2025 3:0 3pm wound April 05, 2025 5:4 9pm Wound April 06, 2025 12: 46pm Reason for Visit Admit Date Anemia March 29, 2025 1:15 pm Celiac disease March 29, 2025 1:15 pm Decubitus ulcer of right buttock, stage 4 March 29, 2025 1:15pm Fecal incontinence March 29, 2025 1:15 pm Incontinence of urine March 29, 2025 1: 15pm Malnutrition March 29, 2025 1:15 pm Milk intolerance March 29, 2025 1:15 pm Quadriplegic infantile cerebral palsy Ju ly 2024 1:15pm Decubitus ulcer of right buttock, stage 4 April 05, 2025 1:15pm Fecal incontinence April 05, 2025 1:1 5pm Incontinence of urine April 05, 2025 1 :15pm Malnutrition April 05, 2025 1:1 5pm Quadriplegic infantile cerebral palsy Au cirilo 2024 1:15pm Chief Complaint Admit Date wound March 14, 2025 12:2 2pm wound March 22, 2025 4:02 pm wound March 29, 2025 1:15 pm wound March 29, 2025 3:36 pm INT LAB ORDERS April 05, 2025 3:0 3pm wound April 05, 2025 5:4 9pm Wound April 06, 2025 12: 46pm wound 2025 2: 35pm wound April 19, 2025 2: 45pm wound April 19, 2025 5: 10pm Reason for Visit Admit Date Anemia March 29, 2025 1:15 pm Celiac disease March 29, 2025 1:15 pm Decubitus ulcer of right buttock, stage 4 March 29, 2025 1:15pm Fecal incontinence March 29, 2025 1:15 pm Incontinence of urine March 29, 2025 1: 15pm Malnutrition March 29, 2025 1:15 pm Milk intolerance March 29, 2025 1:15 pm Quadriplegic infantile cerebral palsy Ju ly 2024 1:15pm Decubitus ulcer of right buttock, stage 4 April 19, 2025 2:45pm Decubitus ulcer of sacral area April 192024 2:45pm Fecal incontinence April 19, 2025 2: 45pm Incontinence of urine April 19, 2025 2:45pm Malnutrition April 19, 2025 2: 45pm Quadriplegic infantile cerebral palsy Au cirilo 2024 2:45pm Chief Complaint Admit Date wound March 14, 2025 12:2 2pm wound March 22, 2025 4:02 pm wound March 29, 2025 1:15 pm wound March 29, 2025 3:36 pm INT LAB ORDERS April 05, 2025 3:0 3pm wound April 05, 2025 5:4 9pm Wound April 06, 2025 12: 46pm wound 2025 2: 35pm wound April 19, 2025 2: 45pm wound April 19, 2025 5: 10pm OSTEOMYELITTIS OF [place] Septembe r 2024 9:42am wound May 03, 2025 10:44am wound May 03, 2025 4:36pm LABS/DRESSING CHANGE May 07, 2025 1:52pm Reason for Visit Admit Date Anemia March 29, 2025 1:15 pm Celiac disease March 29, 2025 1:15 pm Decubitus ulcer of right buttock, stage 4 March 29, 2025 1:15pm Fecal incontinence March 29, 2025 1:15 pm Incontinence of urine March 29, 2025 1: 15pm Malnutrition March 29, 2025 1:15 pm Milk intolerance March 29, 2025 1:15 pm Quadriplegic infantile cerebral palsy Ju ly 2024 1:15pm Decubitus ulcer of right buttock, stage 4 April 19, 2025 2:45pm Decubitus ulcer of sacral area April 192024 2:45pm Fecal incontinence April 19, 2025 2: 45pm Incontinence of urine April 19, 2025 2:45pm Malnutrition April 19, 2025 2: 45pm Quadriplegic infantile cerebral palsy Au cirilo 2024 2:45pm Decubitus ulcer of right buttock, stage 4 May 03, 2025 10:44am Decubitus ulcer of sacral area May 03, 2025 10:44am Fecal incontinence May 03, 2025 10:44am Incontinence of urine May 03 10:44am Malnutrition May 03, 2025 10:44am Quadriplegic infantile cerebral palsy Se pt2024 10:44am Chief Complaint Admit Date wound March 14, 2025 12:2 2pm wound March 22, 2025 4:02 pm wound March 29, 2025 1:15 pm wound March 29, 2025 3:36 pm INT LAB ORDERS April 05, 2025 3:0 3pm wound April 05, 2025 5:4 9pm Wound April 06, 2025 12: 46pm wound 2025 2: 35pm wound April 19, 2025 2: 45pm wound April 19, 2025 5: 10pm OSTEOMYELITTIS OF [place] Septembe r 2024 9:42am wound May 03, 2025 4:36pm LABS/DRESSING CHANGE May 07, 2025 1:52pm wound May 10, 2025 2:00pm Reason for Visit Admit Date Anemia March 29, 2025 1:15 pm Celiac disease March 29, 2025 1:15 pm Decubitus ulcer of right buttock, stage 4 March 29, 2025 1:15pm Fecal incontinence March 29, 2025 1:15 pm Incontinence of urine March 29, 2025 1: 15pm Malnutrition March 29, 2025 1:15 pm Milk intolerance March 29, 2025 1:15 pm Quadriplegic infantile cerebral palsy Ju ly 2024 1:15pm Decubitus ulcer of right buttock, stage 4 April 19, 2025 2:45pm Decubitus ulcer of sacral area April 192024 2:45pm Fecal incontinence April 19, 2025 2: 45pm Incontinence of urine April 19, 2025 2:45pm Malnutrition April 19, 2025 2: 45pm Quadriplegic infantile cerebral palsy Au 2024 2:45pm Decubitus ulcer of right buttock, stage 4 May 10, 2025 2:00pm Decubitus ulcer of sacral area May 10, 2025 2:00pm Fecal incontinence May 10, 2025 2:00pm Incontinence of urine May 10 2:00pm Malnutrition May 10, 2025 2:00pm Quadriplegic infantile cerebral palsy Se ptember 2024 2:00pm Chief Complaint Admit Date wound March 14, 2025 12:2 2pm wound March 22, 2025 4:02 pm wound March 29, 2025 1:15 pm wound March 29, 2025 3:36 pm INT LAB ORDERS April 05, 2025 3:0 3pm wound April 05, 2025 5:4 9pm Wound April 06, 2025 12: 46pm wound 2025 2: 35pm wound April 19, 2025 2: 45pm wound April 19, 2025 5: 10pm OSTEOMYELITTIS OF [place] Septembe r 2024 9:42am wound May 03, 2025 4:36pm LABS/DRESSING CHANGE May 07, 2025 1:52pm wound May 10, 2025 2:00pm wound May 10, 2025 4:04pm ACTIVASE May 14, 2025 12:58pm Additional Source Comments Assessment & Plan Note - KiyaBen, Nikhiljonn Leon, DO - 07/26/2017 3:24 PM ESTAssessment & Plan Note - NgocWinslow, Nikhil De Guzmann, DO - 07/26/2017 3:22 PM EST Miscellaneous Notes (unrecog nized section and content) Associated Problem(s): Generalized edema New onset. Again, unclear etiology. ? Medication related, ? CHF, ? Low protein state. Check echo, Holter, prealbumin, CMP, TSH to further evaluate. Previous live study manager gave lasix. Would not use at this point. BP is marginal and she does not appear grossly volume overloaded. Associated Problem(s): Tachycardia Chronic. Unclear etiology at this point-likely multifactorial-pain, anxiety, physiologic, pulmonary related, deconditioning, dehydration perhaps? Given chronic nature of tachycardia check echo to ensure no tachycardia-mediated cardiomyopathy is present in light of increased edema. 24 hour Holter. Recommend increasing water intake to at least 70oz/day. Has PEG. May need to increase free water, but does have ensure 4 times a day.in this encounter ED Attestation I personally interviewed the patient. I personally examined the patient. I discussed the patient with the COMPREHENSIVE OPHTHALMOLOGIST/PA. I agree with the COMPREHENSIVE OPHTHALMOLOGIST/PA treatment. I agree with the COMPREHENSIVE OPHTHALMOLOGIST/PA plan of care. I agree with the COMPREHENSIVE OPHTHALMOLOGIST/PA disposition as documented. History severely limited by patient's CP, nonverbal status. Appears to blink yes to answers. She is moaning in pain in the room, which mother says is unusual. After some blinking attempts, appear to have pain in her head, maybe urinary pain, maybe buttock pain. Mother has not witnessed any seizures or measured any fevers. Wound clinic believes her wound is getting better. CT head shows possible sphenoid opacification, ? Sinusitis. Otherwise will do empiric evaluation. UA, CXR, KUB unremarkable. BMP shows some mild dehydration, normal Cr. Discussed next steps with mother who seems to be reliable and has been taking care of her for some time. Mother wants to try treatment for sinusitis, and monitor at home. She does not want hospitalization at this time, comfortable taking care of her. in this encounter Reviewed AVS with patient mother Peg, who stated verbal understanding of new prescriptions. Sage and IV taken out before discharged per order. Patient dressed, transfer to wheelchair via slade. Patient mother refused staff assistance in transferring patient to car. Nutrition Care: Patient is doing well on Replete at 50ml/hr with free water of 20ml/hr. Plan is to discharge to home today. Discussed tube feed with patient's mom. She states that they receive their supplies through [facility] and she is open to changing tube feed formula to better meet kcal and protein needs until wound is healed. Once wound is healed then she can be transitioned back to Isosource HN or Ensure Plus. Tube feed for home: Replete 1200ml (5 cans) @80ml/hr x 15hrs/day. Additional free water 480ml per day (55ml/hr for the 9 hours that tube feed is not running) Awaiting return call from [facility] to discuss tube feed. If [facility] is not able to arrange delivery of Replete for discharge today there would be no concern in having mom use supply that she already has of Ensure Plus until Replete can be delivered. Courtney Peter RD,LD [employer] [phone] Culture and pathology results reviewed. Cultures are negative, and pathology shows chronic osteomyelitis, as expected. As previously stated, would NOT recommend penitentiary antibiotic therapy in the setting of chronic osteomyelitis with skin defect. I recommend ongoing aggressive wound care- she should follow up with Dr. Duque at [facility] as planned. Danitza Rowland DO [facility] Infect[facility] Plan for discharge home today. Bone cultures NGTD x 72 hours and right ischial bone biopsy shows chronic osteomyelitis and benign soft tissue. Awaiting final Infectious Disease recommendations. Appreciate assistance. Dietitian to meet with patient's mom to discuss proper feeds for wound healing and free water prior to discharge today. Onelia Guteirrez DO PGY1 [facility] P: [phone] Doing well postop. Discussed plan with her caregiver and she is agreeable. 28F with stage IV right ischial decub ulcer s/p I&D/bone biopsy on 12/02/18. - no activity restrictions from our standpoint - recommend offloading area as this is a stage IV ischial wound - wound RN consult for further management and dressing recs, currently with packing - pain control per primary - follow up with wound clinic Will sign off at this time. Page with questions or concerns. CLAUDINE JOSEPH Demetrius COELLO [id number] 1990 DATE 12/02/2018 OPERATIVE REPORT SURGEON RAD LUQUE MD GLAZE MIXER PETER PEREZ MD, RESIDENT PREOPERATIVE DIAGNOSES Osteomyelitis, right ischium with open ischial decubitus ulcer. POSTOPERATIVE DIAGNOSES Osteomyelitis, right ischium with open ischial decubitus ulcer. PROCEDURES 1. Debridement skin, subcutaneous tissue, muscle and bone, right ischium. 2. Open biopsy right, ischial bone. ANESTHESIA General. ESTIMATED BLOOD LOSS Less than 50 cc. COMPLICATIONS No complications. SPECIMENS Right ischium bone for culture and for pathology. DESCRIPTION OF PROCEDURE The patient came to the operating room, had smooth induction of general anesthetic by the anesthesia staff, she was turned into the lateral decubitus position with her right side up. Right leg and pelvis were prepped and draped in normal sterile fashion. Time-out procedure was done. Correct patient, correct surgery site, correct procedure, presence of implants, dose of antibiotics confirmed, per anesthesia staff, nursing staff, and surgical staff. She had a small opening that does track all the way down to the ischial tuberosity. It is actually relatively clean. There was reasonable tissue inside. We dissected down, found soft bone, cleaned up some of the insertion point of her hamstring and then were able to remove 2 samples of bone, utilizing a pituitary rongeur and a regular Adson rongeur. One of these samples was sent for culture. One of the samples was sent for pathology. We continued to make sure there were no sharp edges on our ischial tuberosity or in the rest of her ischial. We irrigated with 3 L sterile saline and then packed with a Kerlix gauze. A sterile dressing was placed over this. The patient was awoken from anesthesia, transferred to her bed and then to PACU. At the end of the case, all sponge and needle counts were correct. MD Brendan CESPEDES 12/02/2018 12:07 [id number] T 12/02/2018 20:50 CLV/MODL Spoke with patient's caregiver to give update on plan of care as patient is s/p I&D/bone biopsy. All questions answered. Plan to restart tube feeds and free water once she returns to the floor. Onelia Gutierrez DO PGY1 [facility] P: [phone] Orthopaedic Surgery Post-Op Plan 28F with stage IV right ischial decub ulcer s/p I&D/bone biopsy. - Admit back to the floor - no activity restriction - recommend offloading area as this is a stage IV ischial wound - wound RN consult for further management and dressing recs, currently with packing - antibiotics per primary - pain control per primary - follow up with wound clinic Brief Post Operative Note Patient Name: Claudine Joseph : 1990 (28 y.o.) Date of Service: 12/02/2018 CSN: [id number] Procedure(s): INCISION AND DRAINAGE WITH BONE BIOPSY OF RIGHT ISCHIUM Pre-Operative Diagnoses: * RIGHT ISCHIUM OSTEOMYELITIS Post-Operative Diagnoses: Surgeon(s) and Role: * Rad Luque MD - Primary Anesthesiologist: Fidencio Buckner MD [employer] Specialist Orientee: Linda Ibarra RN [employer] Specialist Preceptor: Falguni Corrales RNneonatal social workerMaking Machine Operator: Wilian Mckinney Scrub Person Preceptor: ST Devonte Scrub Person Orientee: Mel Del Castillo RN Scrub Person Assist: ST Catalina Operative findings: sinus tracking toward right ischium Intra and immediate post-operative complications: none Type of anesthesia used: General Estimated blood loss: 22 mL Estimated urine output: 0 mL Specimen(s): ID Type Source Tests Collected by Time Destination 1 : ISCHIAL TUBEROSITY FOR CHRONIC OSTEOMYELITIS Bone Ischium, Right BONE AEROBIC CULTURE, BONE ANAEROBIC CULTURE Rad Luque MD 12/02/2018 1144 A : RIGHT ISCHIUM CULTURE Bone Ischium, Right TISSUE EXAM Rad Luque MD 12/02/2018 1143 Implant(s): * No implants in log * Drain(s): Gastrostomy/Enterostomy PEG-jejunostomy (Active) Gastrostomy/Enterostomy PEG-jejunostomy RUQ (Active) Reassessment Unchd 12/01/2018 6:18 PM Site Assessment Clean;Dry;Intact 12/01/2018 10:10 AM Drain Status Clamped 11/30/2018 1:00 PM Drainage Appearance None 12/01/2018 10:10 AM Dressing Status/ Type Split gauze 12/01/2018 10:10 AM Dressing Intervention New dressing 12/01/2018 10:10 AM Intake (mL) 400 mL 12/01/2018 10:10 AM Urethral Catheter Non-latex;Double-lumen 16 Fr. (Active) Reassessment Unchd 12/01/2018 6:18 PM Site Assessment Clean;Intact 12/01/2018 10:10 AM Collection Container Urometer 12/01/2018 10:10 AM Securement Method Securing device 12/01/2018 8:17 AM Reason for Continuing Urinary Catheterization past POD 1 Chronic history of indwelling or suprapubic catheter 12/01/2018 10:10 AM Output (mL) 1750 mL 12/02/2018 7:56 AM Wound(s): Wound (Inpatient and Home Care Only) 07/31/16 Coccyx Chronic (Active) Wound (Inpatient and Home Care Only) 11/29/18 1 Ischial Tuberosity Right (Active) Reassessment Unchd 12/01/2018 6:18 PM Dressing Status Clean;Dry;Intact 12/01/2018 7:55 PM Wound Bed Characteristics FRANKLIN (Unable to assess) 12/01/2018 7:55 PM Drainage Amount Moderate 12/01/2018 10:10 AM Drainage Description Serosanguineous 12/01/2018 10:10 AM Odor None 12/01/2018 10:10 AM Primary/Secondary Dressing Bordered foam dressing 11/30/2018 9:00 PM Wound Length (cm) 1 cm 11/29/2018 1:00 PM Wound Width (cm) 1.2 cm 11/29/2018 1:00 PM Wound Depth (cm) 5.7 cm 11/29/2018 1:00 PM Wound Surface Area (cm^2) 1.2 cm^2 11/29/2018 1:00 PM Pressure Injury Stage U 11/29/2018 1:00 PM Wound Margin Well defined 11/29/2018 1:00 PM Makenzie-wound Assessment Temperature WNL;Clean;Dry;Intact 12/01/2018 10:10 AM Dressing Changed Changed 12/01/2018 10:10 AM Treatments/Cleansing Cleansed 11/29/2018 1:00 PM Incision 07/31/16 Back Mid;Upper (Active) Incision 07/31/16 Abdomen RLQ (Active) Incision 12/02/18 Hip Right (Active) Peter Perez MD 12/02/2018 12:10 PM Noted documentation of sacral pressure ulcer per FM notes. Clinical Indicators: 28 y.o with complex medical history presented for the evaluation of fever, cough, crackles and decreased oxygen saturation an found to have sepsis. Per family medicine notes, patient has sacral pressure ulcer wound with osteomyelitis and abscess with chronic ischial ulcer on exam 1 cm dm, probed to >5cm. CT with soft tissue thickening extends to right ischium where cortical erosive changes are seen, suggestive of osteomyelitis of underlying right ischium. Per family medicine quick note on 4/5 '' Sacral pressure ulcer with possible abscess and osteomyelitis of right ischium: wound care following, packed with aquacel, clear aid barrier ointment applied. Orthopedic surgery consulted, plan for bone biopsy, culture and debridement . Note: Pressure ulcer documentation must include site, stage, and POA (Present on Admission) Please document the stage of ulcer. For Example: Sacral pressure ulcer stage 4 Sacral pressure ulcer stage 3 Sacral pressure ulcer (please stage) Unstageable Other (please specify) Unable to determine Thank you, Jory Condon CCDS, CDIP, CRCR, CCS Clinical Bonding Machine Tender [phone] After business hours you may contact Marisol Hansen at [phone] (Weekdays until 10 PM and weekends 8 AM - 10 PM) Stage of Pressure Ulcers: 1 - Persistent focal erythema (non-blanchable redness) 2 - Abrasion, shallow (open ulcer) or (intact or open blister), partial thickness skin loss involving epidermis and/or dermis 3 - Full thickness skin loss involving damage or necrosis of subcutaneous tissue 4 - Necrosis of soft tissues through to underlying muscle, tendon, or bone, (slough or eschar may be present) Deep Tissue Injury - Purple or maroon discolored intact skin due to damage of underlying soft tissue from pressure or tear) Non-Stageable - Unable to stage due to eschar or slough present over 35% of wound 28-year-old female with CP and pressure ulcer. Originally consulted for debridement of wound, however wound does not appear infected or the source of her sepsis. ID consulted, it is likely that she has chronic osteomyelitis. Orth O to perform bone biopsy today of right ischium. Recommend offloading and local wound care. Please call with questions. Donnie Mock PGY5, , MS [phone] Pager If you cannot reach me, please page [phone] Patient seen and examined independently of Dr. Gutierrez, please see daily progress note for further details. A/P: Claudine Joseph is a 28 y.o. female with has a past medical history of Acute respiratory failure ([facility]), Allergic rhinitis, Anoxic brain damage ([facility]), Aspiration, chronic pulmonary, Bowel and bladder incontinence, Cerebral palsy ([facility]), Chronic respiratory failure with hypoxia ([facility]), Constipation, GERD (gastroesophageal reflux disease), MRSA (methicillin resistant Staphylococcus aureus) (04/2016), Nonverbal, Postoperative retention of urine, Restrictive lung disease due to kyphoscoliosis, and Seizures ([facility]). who presented with sepsis. 1. Sacral pressure ulcer with possible abscess and osteomyelitis of R ischium - - Afebrile, vitals WNL. - WBC 8.9, CRP 5.4, ESR 38. CBC daily. - Wound care following, appreciate assistance. Packed with aquacel, clear aid barrier ointment applied. - Orthopedic surgery consulted. Plan for bone biopsy, culture, and debridement 12/02. - Infectious disease now following. Cefepime and Vancomycin stopped 12/01. 2. Hypernatremia - - Now resolved. Secondary to dehydration on admission. - BMP daily. 3. Possible UTI - - Has completed three days of therapy with Cefepime. 4. Nutritional deficiency - - Pt presented to hospital dehydrated. Gets tube feeds through PEG. Pureed food qAM, Ensure, and TF/fluids overnight. - Captain Waiter/Waitress consulted and following, appreciate recommendations. 5. Chronic hypoxemic respiratory failure with hypercapnia - Presented with increased O2 requirements, now stable on home O2. - Secondary to severe restrictive lung disease from scoliosis. Home O2 4L NC. 6. Spastic cerebral palsy - Managed with Baclofen pump (refilled 11/20). Follows with Dr. Murphy. - Continue intrathecal baclofen. 7. Epilepsy - Secondary to anoxic brain injury at . Lamictal level normal on admission. - Continue home Lamictal 250 mg BID, Keppra 1000 mg BID. Valium 6 mg PRN seizure. S: Sleeping in bed this morning. O: BP 112/74 (BP Location: Left leg, Patient Position: Lying) Pulse 99 Temp 99.2 F (37.3 C) (Oral) Resp 16 Ht 4' 6 Wt 40.8 kg (90 lb) SpO2 96% BMI 21.70 kg/m Gen: in no acute distress, arousable to verbal stimuli and light touch HEENT: NC/AT, PERRL Heart: RRR no murmurs/rubs/gallops, normal S1/S2 Chest: CTAB no wheezing or crackles Abdomen: soft, nondistended, no rebound or guarding Ext: no edema, marked muscle atrophy Skin: no rashes or lesions, no bruises/bleeding. Pertinent labs: Results from last 7 days Lab Units 12/01/18 0840 11/30/18 0100 11/29/18 0605 WBC K/mcL 8.96 10.65 10.98 HGB g/dL 9.8* 11.1* 11.8* HCT % 32.6* 37.7 40.4 MCV fL 96.4 100.3* 101.8* PLT K/mcL 182 197 222 Results from last 7 days Lab Units 12/01/18 0840 11/30/18 2034 11/30/18 1109 SODIUM mmol/L 144 146* 151* POTASSIUM mmol/L 3.5 3.5 3.6 CHLORIDE mmol/L 103 104 106 BICARB mmol/L 33* 34* 36* BUN mg/dL 16 13 14 CREATININE mg/dL 0.40 0.31* <0.20* GLUCOSE mg/dL 134* 114* 112* CALCIUM mg/dL 9.1 9.0 9.3 Imaging: No new imaging overnight Stephen Jarrell DO PGY-3 [facility] Pager: [phone] The patient is being evaluated for a low risk surgery. Cannot assess the patient's symptoms as she is non-verbal. The patient's functional capacity is <4 METS. The patient has the following pertinent Revised Cardiac Risk Index Indicators none. This represents a 3.9% 30 day risk of , AR, or cardiac arrest. Lin 0.8% risk of myocardial infarction or cardiac arrest, intraoperatively or up to 30 days post op. Based on the above, the patient is at low risk to proceed to surgery. The patient may proceed to surgery, with comments/risks as noted above. Other recommendations: Patient has cerebral palsy with severe thoracolumbar scoliosis, on chronic O2, without previous comments on intubation difficulty though airway appears contorted on imaging. It appears direct/video laryngoscopy was used prior. Richar Brandt MD PGY-1 Pager #: [phone] Associated Problem(s): Sacral decubitus ulcer 28 y/o female with a chronic right ischial decubitus ulcer and concern for osteomyelitis as source of infection, orthopedics consulted for bone biopsy D/w Dr. Luque -Afebrile, vss -WBC 8.96, CRP 5.4, ESR 38 -Imaging reviewed-CT demonstrating Soft tissue thickening which is seen extending to the right ischium where cortical erosive changes are seen, suggestive of osteomyelitis of the underlying right ischium -Will plan for bone biopsy tomorrow with Dr. Luque-informed consent obtained from mother at bedside -NPO at [place] - Mother/caregiver of patient provided information regarding where she would like medications to be sent upon discharged. Attempted to speak with caser in to relay this information but was unsuccessful. Message left for caser in and information placed in patient's chart (yellow sticky note). Onelia Gutierrez DO PGY1 [facility] P: [phone] Patient's Na has normalized to 144 this morning. Will discontinue free water flushes. Order placed for continuous free water per Nutrition recommendations for 20 mL/hr. Onelia Gutierrez DO Y1 [facility] P: [phone] Spoke with Citlalli Peter RD concerning tube feedings. Patient has a history of emesis with bolus feedings. Continuous feedings at this time are most consistent with home regiment. Nutrition to follow along throughout hospitalization and will assist with disposition and recommendations for home-going nutrition regimen. Appreciate assistance from nutrition services. Onelia Gutierrez DO Y1 [facility] P: [phone] Evaluated patient after paged by TAMMY Santana that patient may be having an allergic reaction to vancomycin. Shortly after the infusion was complete, patient started becoming flushed. She is afebrile and vitals signs have remained stable. On evaluation, patient was being evaluated by wound care. Patient with flushing of face, neck, upper chest, and some shoulder, blanchable, but improved according to mom. Heart RRR with normal breath sounds, no wheezing or increase in respirations. No hypotension. O2 saturation 100%. Temperature 98.8F. Patient comfortable. Presentation consistent with Red Man Syndrome Placed order for Benadryl 25 mg IV once. Will have pharmacy half the vancomycin infusion rate for future doses. Onelia Gutierrez DO Y1 [facility] P: [phone] Spoke with another radiologist who re-read the CT Chest/Abdomen/Pelvis to look for osteomyelitis as this is a major concern. The radiologist read that there is a right ischial ulcer which goes to the bone with cortical destruction. This radiologist was confident in calling this osteomyelitis. Placed a phone call to radiology operations for the reading radiologist for an addendum to be made to the original findings including the right ischial ulcer with bone involvement as this will impact the patient's care. Onelia Gutierrez DO Y1 [facility] P: [phone] I was physically present to see and evaluate the patient on 11/29/18. I discussed the case with the integrated marketing intern physician and actively participated in the critical and camejo portions of the management provided. I agree with the integrated marketing intern's findings and plan as documented in his/her note below with the following additions. Claudine Joseph is a 28 y.o. female with a significant PMHx of Cerebral palsy, seizure, severe scoliosis, and chronic hypoxic respiratory failure on 4LNC who presents to the ED for further evaluation of increased respiratory requirements and sickness. In the ED she was found to be septic, with suspicious urinary source - though unclear based on history. Patient's mother states she has had a couple days of increased work of breathing, cough, fever and dyspnea - but otherwise no symptoms to report. Reports that sacral wound has healed slightly, but has notably gotten deeper, no reports of increased drainage or change in character. Notes that PICC has been in place since April, though hasn't been used since that time. Physical Exam Constitutional: No distress. Non-verbal and largely non-interactive Cardiovascular: Normal rate and regular rhythm. No murmur heard. Pulmonary/Chest: Effort normal. She has no wheezes. Abdominal: Soft. She exhibits no distension. There is no tenderness. PEG in place, no redness or drainage Musculoskeletal: She exhibits edema. REU PICC in place without drainage or erythema Skin: Skin is warm and dry. [facility], imaging, ECG, etc. findings include CXR limited by rotation and hardware, but with noted haziness. CT Chest Abdomen Pelvis without acute abnormality. Lactate elevated to 2.9, improved with IVF to 1.3. CBC without abnormality, BMP with hypernatremia to 155. Flu negative. UA with small LE, pyuria, and many bacteria. A/P Sepsis - Likely secondary to urinary source, other possible sources include sacral wound or early aspiration pneumonia/pneumonitis. Treated empirically in the ED with Vanc and Cefepime, can likely de-escalate with cultures pending. Urine culture also pending. Fluid resuscitated with improvements in lactic acid. Recommend removal of PICC. Chronic Hypoxic Respiratory Failure - With severe restrictive lung disease secondary to scoliosis. Continue to wean oxygen as tolerated, vibratory PEP and incentive spirometry as tolerated. Sacral Wound - Chronic, and with previous wound vac in the setting of immobility and nutritional difficulty. Consult ET, dressing just changed with family at bedside. Hypernatremia - Appears to be near baseline, likely in the setting of poor hydration. Continue to monitor with daily BMP, mindful of any further fluid correction. Nutrition consult and free water per PEG. Cerebral Palsy - Chronic, though with complicated seizure and spasticity history. Managed with anti-epileptics and intrathecal baclofen. In the setting of acute infectious etiology, caution regarding decreased seizure threshold. CODE STATUS: Full Code Arrived From: home Expected Disposition: home. Based on current clinical information, the expected discharge date is: within 48-72 hrs The patient is being admitted under inpatient status to the general medical floor with telemetry. Huber Marquez MD Internal Medicine, PGY-2 Pager: [phone] in this encounter 09/27/19 Addendum: Thank you for looking at this query; unable to find a response. Please respond in the progress notes. Noted documentation of complicated UTI with indwelling sage present on admission per the 09/25 hospitalist's note. Clinical Indicators: 09/21 MICU PN: Severe sepsis without shock (present on admission) secondary to pneumonia, and also urinary source (urine culture with enterococcus and pseudomonas). Has chronic indwelling sage, will change and reculture. 09/22 MICU PN: UTI 2/2 chronic indwelling sage catheter, hx of klebsiella uti. Please clarify the meaning of with. For Example: Complicated UTI due to indwelling sage present on admit Complicated UTI not due to indwelling sage present on admit Other (please specify) Unable to determine Thank you, JOSE FRANCISCO Bryson, RN Clinical Bonding Machine Tender [phone] After business hours you may contact Marisol Hansen at [phone] (Weekdays until 10 PM and weekends 8 AM - 10 PM) Response called for HR 140 after NT suctioning per RN. Patient excitable with staff presence. HR now 120s and RR 26 resting quietly in no distress noted since morphine given. Bedside RN to monitor. Noted documentation of complicated UTI with indwelling sage present on admission per the 09/25 hospitalist's note. Clinical Indicators: 09/21 MICU PN: Severe sepsis without shock (present on admission) secondary to pneumonia, and also urinary source (urine culture with enterococcus and pseudomonas). Has chronic indwelling sage, will change and reculture. 09/22 MICU PN: UTI 2/2 chronic indwelling sage catheter, hx of klebsiella uti. Please further specify if the infection is due to indwelling sage catheter. For Example: Complicated UTI due to indwelling sage present on admit Complicated UTI not due to indwelling sage present on admit Other (please specify) Unable to determine Thank you, JOSE FRANCISCO Bryson, RN Clinical Bonding Machine Tender [phone] After business hours you may contact Marisol Hansen at [phone] (Weekdays until 10 PM and weekends 8 AM - 10 PM) Problem: Pressure Ulcer - Risk of Goal: Absence of pressure ulcer Outcome: Partially Met Problem: Pain Goal: Manage acute pain Outcome: Partially Met Note: Pt presently does not appear to be in pain and is resting comfortably; will continue to reasess pain every two hours or when pt notifies that pain is present. Problem: Nausea/Vomiting Goal: Absence of nausea/vomiting Outcome: Met Problem: Falls, Risk of Goal: Absence of falls Outcome: Met Problem: Pain Goal: Manage acute pain Outcome: Partially Met Note: Pt is not exhibiting and signs or symptoms of pain at this time. Will continue to monitor and treat accordingly. Critical Care Transfer Note / Discharge Summary Date of admit: 09/19/2019 Date of discharge/transfer: 09/22/19 Disposition/Level of Care: Intermediate Accepting Physician/Service (If transfer out of unit): [facility] Active Diagnoses: 1. Acute Hypoxic Respiratory Failure: CAP with risk factors for MDR organisms and aspiration. Enterobacter cloacoa from sputum Cx. Covering with cefepime. 2. Complicated UTI: Chronic indwelling sage. Enterococcus and pseudomonas in urine. Sage exchanged. Covering with vanc/cefepime for total of 7 day course. Active Consultations/Recommendations NA Hospital/ICU Course Synopsis: Claudine Joseph is a 29 y.o. female who presented to [facility] 09/19/2019 with aspiration event. She worsened on the floor and was transferred to the ICU. Treated with broad-spectrum antibiotics and narrowed based on cultures, as above. Sage has been exchanged. Medication reconciliation was completed with legal guardian. Plan is for treatment of CAP and complicated UTI x 7 days. Transfer Notes Significant Procedures (including dates): -NA Antibiotic Therapies: Current Regimen: Vanc/Cefepime. Indication: CAP, complicated UTI Start Date: 09/20/19 End Date: 09/27/19 Steroid Therapies: Current Regimen: Prednisone x 5 days Sage Utilization (indication/plan): Chronic indwelling DVT Prophylaxis (current plan): LMWH GI Prophylaxis (indication/plan): protonix Consultative follow-up needed at outpatient: -N/A Fidencio Ye DO Internal Medicine, PGY-2 Pager: [phone] Pulmonary & Critical Care Full resident consult note to follow: The patient was seen and examined with the house staff. I personally reviewed the radiographic images and laboratory data. I agree with the history, physical exam, and assessment and plan with the following comments. Reason for admission/consult/chief complaint: respiratory failure, sepsis, critical care management []? All other systems were reviewed and negative except for those as specified in History of Present illness. [x]? Unable to obtain history or ROS secondary to clinical circumstances Baseline sbp: 90-100 Baseline HR: 100-110 Assessment/Plan: Acute on chronic hypoxemic (4-6LNC baseline), hypercapnic respiratory failure - overall improved, back to baseline oxygen requirements. Still with increased secretions, will keep in ICU for pulm hygiene. Resp failure due to gram negative pneumonia superimposed on respiratory muscle weakness from cerebral palsy. Abx as below, SPO2 goal 88-92%. Note patient has a BiPAP at home, does not tolerate and does not wear. Difficult airway sign to be posted above bed. If respiratory status declines and patient requires intubation will notify anesthesia to have 2 experienced providers present (intubated April 2016, required glide scope and bougie). Severe sepsis without shock (present on admission) secondary to pneumonia, and also urinary source (urine culture with enterococcus and pseudomonas). Has chronic indwelling sage, will change and reculture (guardian changes at home). Abx to zosyn (note pcn allergy but will monitor reaction closely). HD stable. Seizure disorder history of and currently exacerbated by acute illness. Guardian states patient has 2 3 seizures weekly. Continue home Keppra, Lamictal, CBD oil. Has diazepam as needed for breakthrough seizures per her home regimen. Cerebral palsy - has baclofen pump. DVT prophylaxis: enoxaparin Family updated: at bedside Goals of care: full code - confirmed with guardian 09/20/19. Lalo Wellington DO Pulmonary & Critical Care [facility] Pulmonary & critical Care Full resident consult note to follow: The patient was seen and examined with the house staff. I personally reviewed the radiographic images and laboratory data. I agree with the history, physical exam, and assessment and plan with the following comments. Reason for admission/consult/chief complaint: respiratory failure, sepsis, critical care management [] All other systems were reviewed and negative except for those as specified in History of Present illness. [x] Unable to obtain history or ROS secondary to clinical circumstances Baseline sbp: 90-100 Baseline HR: 100-110 Assessment/Plan: Acute on chronic hypoxemic (4-6LNC baseline), hypercapnic respiratory failure -secondary to pneumonia superimposed on respiratory muscle weakness from cerebral palsy. Antibiotics as outlined below, aggressive pulmonary hygiene, SPO2 goal 88-92%. Note patient has a BiPAP at home, does not tolerate and does not wear. Difficult airway sign to be posted above bed. If respiratory status declines and patient requires intubation will notify anesthesia to have 2 experienced providers present (intubated April 2016, required glide scope and bougie). Severe sepsis without shock (present on admission) secondary to pneumonia, suspect aspiration and patient has risk factors for MRSA and gram-negatives. Note negative influenza. Panculture, broad-spectrum antibiotics with atypical coverage. IVF resuscitation, blood pressure currently stable. Seizure disorder history of and currently exacerbated by acute illness. Guardian states patient has 2 3 seizures weekly. Continue home Keppra, Lamictal, CBD oil. Has diazepam as needed for breakthrough seizures per her home regimen. If seizure is persistent will ask neurology to assist. Cerebral palsy - has baclofen pump. DVT prophylaxis: enoxaparin Family updated: at bedside Goals of care: full code - confirmed with guardian 09/20/19. Lalo Wellington DO Pulmonary & Critical Care [facility] Response RN note: called to see for elevated MEWS score of 6 r/t tachypnea, fever, and tachycardia. SBP 90's which is not far off of baseline. O2 sats currently 92% on 6 LNC..Resp shallow at 28. Pt febrile and minimally interactive. placed new PIV in right forearm, 500cc NS bolus and Vanco initiated. Transferred to medical ICU for closer observation given increased work of breathing and overall debilitated state. Patient seen on floor. Notified by nursing patient MEWS of 6, Rapid response RN notified. Febrile, tachycardic, tachypneic, labored breathing at rest. Patient with chronic contractures and spastic movements. Has had respiratory distress per family since aspiration event. Lungs with scattered rhonchi and wheezing. Patient on 4LNC with stable saturation in 90's. ABG not alarming, although given labored nature of breathing and clinical septic picture, will transfuse to ICU for close observation of respiratory status for today. Respiratory therapy at bedside, giving breathing treatment. Patient breathing 28 bpm, RT with concern for potential need for respiratory support. Discussed with supervisor telephone information waffle machine operator, accepting of transfer. Peg listed as primary contact(reports she is patients mother) notified. She has gone home to get patient tubing for J-tube administration of meds. She will be returning to the hospital this AM. documented in this encounter Low clinical suspicion of UTI given her ABX treatment. Patient likely colonized based off previous cultures. Noted documentation of possible recurrent urinary tract infection with chronic urinary catheter in the progress notes. Clinical Indicators: WBC 15.04, temp 104.4 on admit Cefepime started on admit, vancomycin given x's 1 on admit Urine cx 10/21: >100,000 CFU/mL Pseudomonas aeruginosa, >100,000 CFU/mL Enterococcus faecalis Please specify if the infection is due to the chronic urinary catheter in the progress notes. For Example: UTI is due to chronic urinary catheter UTI is not due to chronic urinary catheter After study, UTI ruled out Other (please specify) Unable to determine Thank you, CAITY ChristineN, RN Clinical Bonding Machine Tender [phone] After business hours you may contact Marisol Hansen at [phone] (Weekdays until 10 PM and weekends 8 AM - 10 PM) documented in this encounter ED Attestation: I have reviewed the non physician practitioner's documentation, personally taken the patient's history, performed an exam and agree with the physical findings, clinical impression and management plan Patient is a 29-year-old female with a history of anoxic brain injury who presents for PICC line problem. PICC line was placed approximately 4 days ago. Mother tried flushing with normal saline and heparin without relief. Patient is getting IV antibiotics at home. Patient is nonverbal. Physical Exam: General: No distress, alert and oriented HEENT: Macrocephalic, atraumatic. External ears normal. Nares patent. Oropharynx clear without obstruction Neck: Supple. Normal range of motion Cardiovascular: Regular rhythm. No murmurs, rubs, or gallops Pulmonary: Symmetrical breath sounds. Lungs clear to auscultation bilaterally Abdomen: Soft, nondistended Extremities: contractu red, right arm picc Assessment: Claudine Joseph is a 29 y.o. female who presents with picc line problem Differential Diagnosis: occlusion, infection, thrombosis, migration Plan: PICC team consult ED Course/MDM: Patient arrived hemodynamically stable and in no acute distress. Patient's previous imaging and studies reviewed. Ultimately were able to get PICC line to flush. Patient will be discharged in stable condition. documented in this encounter Baclofen Pump per H&P - Pump refilled last week - RN unable to visually locate pump at this time - Pharm D to follow 02/12 to confirm pump and confirm next refill date. (Mother not present to provide info) Wilder Marcelo Pharm D Response note called with elevated mews pt just arrived from ED, chart reviewed, sepsis protocol initiated in ED, pt on zosyn and vanco. Problem: Actual or potential alteration in health Goal: Absence of healthcare acquired conditions Outcome: Partially Met Goal: Knowledge of Interdisciplinary Plan of Care Outcome: Partially Met Goal: Knowledge of Enviroment Outcome: Partially Met Problem: Pain Goal: Manage acute pain Outcome: Partially Met Goal: Manage chronic pain Outcome: Partially Met Goal: Reduced pain sensation Outcome: Partially Met Goal: Achievement of comfort function goal Outcome: Partially Met Problem: Pressure Injury Goal: Absence of hospital-acquired pressure ulcer Outcome: Partially Met Goal: Pressure ulcer healing Outcome: Partially Met Problem: Falls, Risk of Goal: Absence of falls Outcome: Partially Met Discussed POC with patient and mother. Patient nonverbal, mother Peg verbalizes understanding. Patient bed in lowest position, wheels locked, 3/4 side rails up and padded, suction and oxygen set up. Associated Order(s): EKG 12-lead EKG 12-lead Date/Time: 02/12/2020 6:02 PM Performed by: Precious Herrera MD Authorized by: Precious Hrerera MD Interpreted by ED attending physician Rhythm: sinus rhythm and sinus tachycardia BPM: 124 ST Segments: ST segments normal T Waves: T waves normal T Inversion: V3, V4 and V5 Clinical impression: non-specific ECG and sinus tachycardia I personally interviewed the patient. I personally examined the patient. I discussed the patient with COMPREHENSIVE OPHTHALMOLOGIST/PA. I agree with the COMPREHENSIVE OPHTHALMOLOGIST/PA treatment plan. I agree with the COMPREHENSIVE OPHTHALMOLOGIST/PA plan of care. I agree with the COMPREHENSIVE OPHTHALMOLOGIST/PA dispo as documented. . . This is a 29-year-old girl brought in by her mother for cough, vomiting. She has a history of anoxic brain injury and cerebral palsy. Normal IQ per her mother. The child vomited on Wednesday which mother reports almost impossible to keep her from aspirating when this happened. Since then she is had a worsening cough over the past several days and also spiked a fever today 100.4. She is had intermittent emesis since then as well. Normal stools. No change in her urination she does have a Sage. To the mother the child seems near baseline but she can just how she does not feel good. The child abdomen is soft and nontender she does not wince when I examined her. Her mom reports that she is able to tell if she is having pain and does not think he is having any abdominal pain when I examined her. Her mom also reports that she is always tachycardic. Because she remained tachycardic after fluid boluses I did add on a EKG. Laboratory Results Labs Reviewed CHEM 7 - Abnormal; Notable for the following components: Result Value Chloride 97 (*) Bicarbonate 35 (*) Creatinine 0.33 (*) Glucose 135 (*) BUN/Creatinine Ratio 57.6 (*) All other components within normal limits Narrative: The eGFR should be used for monitoring renal function only and not for medication dosing. LACTIC ACID, PLASMA - Abnormal; Notable for the following components: Lactic Acid 4.0 (*) All other components within normal limits URINALYSIS - Abnormal; Notable for the following components: Color, Urine Colette (*) Clarity, Urine Cloudy (*) Specific [place] 1.030 (*) pH, Urine 8.0 (*) Protein, Urine 100 (*) Leukocyte Esterase, Urine Small (*) WBCs, Urine 37 (*) RBCs, Urine 21 (*) Bacteria, Urine Many (*) Calcium Oxalate Crystals Few (*) Amorphous Crystals Few (*) Mucus, Urine Many (*) All other components within normal limits Narrative: Microscopic examination is performed on all urinalysis samples and only positive findings are reported. The test for blood on the chemical analytic portion of urinalysis may also be positive due to hemoglobinuria and myoglobinuria and if red blood cells are present they are quantified by microscopic examination. HEPATIC FUNCTION PANEL - Abnormal; Notable for the following components: Total Protein 8.3 (*) Alkaline Phosphatase 254 (*) All other components within normal limits CBC WITH AUTO DIFFERENTIAL - Abnormal; Notable for the following components: WBC 18.37 (*) Hemoglobin 11.7 (*) MCHC 29.1 (*) Neutrophils Abs 17.04 (*) Monocytes Abs 0.15 (*) All other components within normal limits COVID-19, MOLECULAR - Normal LIPASE - Normal BLOOD CULTURE AEROBIC/ANAEROBIC BLOOD CULTURE AEROBIC/ANAEROBIC URINE AEROBIC CULTURE CBC AND DIFFERENTIAL Narrative: The following orders were created for panel order CBC w/ Diff. Procedure Abnormality Status --------- ------ CBC Auto Differential[[id number]] Abnormal Final result Please view results for these tests on the individual orders. Imaging Results XR Chest 1 View Final Result 1. Limited exam due to the patient's condition. 2. Small amount of bibasilar atelectasis versus early infiltrates. Grossly no consolidation. Workstation ID: [id number] documented in this encounter Patient's mother requesting AMA paperwork to discharge patient home. Paperwork completed. Patient mother refusing to let staff remove peripheral IV, so patient discharged with peripheral IV intact. Family requesting PICC line tonight with discharge discussed need to confirm plan with Dr Rice I did speak with wound clinic staff regarding notes and plan and they did confirm antibiotics plan with notes in system, Called to the supervisor telephone information Dr Duque Message left with him to return call to discuss call Reviewed with family concerns re hypotension this admit, discussed with her that the her daughters BP fluctuate in general not always low, discussed ideally before a PICC is placed we would want to see blood negative cultures. Family reporting that if PICC line is not placed this evening that she will need to AMA as she has an appointment herself tomorrow. Unable to confirm with her wound team doctors this plan as Dr Duque is not her PCP Discussed with PICC team unable to place PICC until cultures are negative for 24 hours information given for outpt picc placement. 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 Discussed this is not ideal to use for her home antibiotics, discussed that IV's can infiltrate and to notify her home health company as soon as possible if this occurs. Recommended removal if family consents to PIV removal upon discharge. Patient discharged AMA with mother and possible PIV access Elodia Mendoza MD [facility] [phone] (office) I personally saw, evaluated, and examined the patient. I reviewed and agreed with the resident's findings, including all diagnostic interpretations and treatment plans as documented. I was present during camejo portions of separately performed procedures. HPI / PE / MDM: 30yo F with a PMH of CP, quadriplegia, has had multiple sacral decubitus ulcers requiring wound vac's, the entire family had COVID recently, here for concern for a wound infection. Mom believes while family had COVID the patient's care was sub-optimal. She went to her wound care doc who took a wound culture and called them today to tell them to come to the ER to get a PICC line and get set up for meropenem, which is supposed to be delivered to their house tomorrow. She has had to be on meropenem before. She appears chronically ill on exam, flushed at her face, hypotensive. Mom states normal BP at home is in the high 90s. She was hypotensive on her last admission as well. On exam, her decubitus ulcer is very deep, seems to track at least a centimeter or 2, but overall does not appear infected to me. No purulent discharge, no significant surrounding induration or erythema. Likely needs better wound care than what she is getting currently. She would benefit from observationand evaluation and wound care to see her. Still pending labs. Fluids to be given. She is a bit volume down, elevated BUN/Cr ratio, responded well to fluids. Will give a dose of meropenem here after speaking with pharmacy, will admit for observation for wound care evaluation and so providers have a chance speak with her wound care doc and to coordinate her care. Maybe discharge home later today? documented in this encounter OCCUPATIONAL THERAPY VISIT VARIANCE NOTE Upon review of the chart and discussion with and/or observation of the patient, no further skilled therapy intervention is indicated. Pt is dependent for all ADLs and trxfers at baseline per note charted 09/19 by PT . Screened by occupational therapy no further needs indicated and nursing has been notified. ED Attestation: I have reviewed the non physician practitioner's documentation, personally taken the patient's history, performed an exam and agree with the physical findings, clinical impression and management plan HPI: Claudine Joseph is a 30 y.o. female with a PMH of spastic cerebral palsy, chronic respiratory failure (baseline 2 L O2 requirement) who presents to the ED as her primary health policy nurse is unable to care for her at this time. Patient's mother reportedly brought her to [facility] today for a scheduled appointment; however, her mother reportedly had a syncopal episode and was admitted to the hospital. Patient's mother is her primary caregiver and reportedly no one else at home is able to care for the patient. It was documented on the triage note that the patient had low oxygen levels but it turns out that the patient's oxygen tank was low. She was never really hypoxic. Patient was accompanied by a friend of the family who told the APC that she is at her baseline. Unable to obtain history from the patient due to her baseline nonverbal status. Past Medical History: Diagnosis Date Acute respiratory failure (HCC) Due to MRSA pneumonia 04/2016; Allergic rhinitis Anoxic brain damage (HCC) Aspiration, chronic pulmonary Bowel and bladder incontinence Cerebral palsy (HCC) Chronic osteomyelitis of pelvic region, right ([facility]) 2019 required right ischial debridement, followed by Dr. Noland of plastics Chronic respiratory failure with hypoxia ([facility]) 3 L NC, followed by Dr. Stephy Cisse and Dr. Amalia Terry Constipation Epilepsy ([facility]) followed at [facility] neurology clinic GERD (gastroesophageal reflux disease) occasional vomiting with gagging MRSA (methicillin resistant Staphylococcus aureus) 04/2016 Bilateral lungs Muscle spasticity medically refractory and has baclofen pump since 1999, followed at [facility] neuro baclofen pump clinic Nonverbal Answers yes with very long blinks per adoptive parent PEG (percutaneous endoscopic gastrostomy) status ([facility]) Presence of intrathecal baclofen pump [address] 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 Urine retention occasional occurrence that requires straight cath periodically Wheelchair bound PE: BP: 117/95 Heart Rate: 104 Temp: 99 F (37.2 C) Resp: 18 SpO2: 97 % Gen: Awake, alert, slightly agitated but no acute distress HEENT: MMM Heart: Tachycardic to low 100s on my evaluation, regular rhythm Lungs: CTA bilaterally, no wheezes, rales, or rhonchi, no increased work of breathing Neuro: Awake and alert, non-verbal (baseline), spastic extremities Laboratory Results Labs Reviewed COVID-19/INFLUENZA A,B MOLECULAR - Abnormal; Notable for the following components: Result Value SARS-CoV-2 Detected (*) All other components within normal limits Narrative: This test was performed under the FDA's Emergency Use Authorization (EUA). Testing was performed using the Alexi Tao SARS-CoV-2 RT-PCR & Influenza A/B Nucleic Acid Test on the Tao Marlen System. This test has not been approved for use in asymptomatic patients and its performance in this patient population has not been evaluated. Negative results do not rule out the presence of SARS-CoV-2, influenza A, and/or influenza B. Fact sheets for the EUA can be found at the following links: For Healthcare Providers: https://www.fda.gov/media/038535/download For Patients: https://www.mobile mum.gov/media/499364/download BASIC METABOLIC PANEL - Abnormal; Notable for the following components: Creatinine 0.33 (*) BUN/Creatinine Ratio 42.4 (*) All other components within normal limits Narrative: The eGFR should be used for monitoring renal function only and not for medication dosing. CBC AND DIFFERENTIAL Narrative: The following orders were created for panel order CBC w/ Diff. Procedure Abnormality Status --------- ------ CBC Auto Differential[[id number]] In process Please view results for these tests on the individual orders. CBC WITH AUTO DIFFERENTIAL Imaging Results XR Chest 1 View Final Result No significant change Workstation ID: [id number] MDM: Claudine Joseph is a 30 y.o. female with a PMH of spastic cerebral palsy, chronic respiratory failure (baseline 2 L O2 requirement) who presents to the ED as her primary health policy nurse is unable to care for her at this time. On initial evaluation, the patient was hemodynamically stable, afebrile, and in no acute distress. Patient is saturating normally on her baseline oxygen requirement. History, exam, and work-up as above. Labs significant for no leukocytosis, mild anemia to 11.9, no renal insufficiency or significant electrolyte abnormalities, and COVID-19 positive. Chest x-ray with no acute process. Patient does not have an increased oxygen requirement at this time in the setting of her COVID-19 infection so she does not qualify for Decadron. As the patient's primary caregiver is hospitalized and there is no one available to care for her at this time, we consulted the ED social services analyst who placed multiple referrals for nursing facility admission. However, the social services analyst subsequently informed me that she would not be able to be accepted to any of these facilities today. As such, patient will be admitted medically until she can be placed. documented in this encounter Discharge instructions reviewed including medications and follow ups. Mother of patient verbalized understanding and also demonstrated proficiency through teach back. All questions answered. Results from Wound culture per MD request from [facility]: culture routine on 2020-01-15 Bacteria identified Aer cx Nom (Wound) Proteus mirabilis HEAVY GROWTH ORGANISM: Isolate 1 ANTIBIOTIC INTERP QUE Ampicillin S <=2 Ampicillin/Sulbactam S <=2 Piperacillin/Tazobactam S <=4 Cefazolin S <=4 Cefoxitin S <=4 Ceftriaxone S <=1 Meropenem S <=0.25 Gentamicin S <=1 Ciprofloxacin S <=0.25 Levofloxacin S <=0.12 Trimethoprim/Sulfamethoxazole S <=20 ORGANISM: Isolate 2 ANTIBIOTIC INTERP QUE Piperacillin/Tazobactam I 32 Cefepime I 8 Meropenem S 1 Gentamicin S <=1 Ciprofloxacin R >=4 Levofloxacin R >=8 This RN entered pt room to do assessment, upon returning to room from gathering supplies pt mother was in process of removing woundvac due to dressing being saturated with stool. This RN proceeded to clean patient and applied gauze and tape to cover wound until ET nurse can evaluate in the morning. ED Attestation I personally interviewed the patient. I personally examined the patient. I discussed the patient with COMPREHENSIVE OPHTHALMOLOGIST/PA. I agree with the COMPREHENSIVE OPHTHALMOLOGIST/PA treatment plan. I agree with the COMPREHENSIVE OPHTHALMOLOGIST/PA plan of care. I agree with the COMPREHENSIVE OPHTHALMOLOGIST/PA dispo as documented. Patient is a 29-year-old female with a history of anoxic brain damage, MRSA, gastroesophageal reflux disease, allergic rhinitis, restrictive lung disease, epilepsy, cerebral palsy, muscle spasticity, and osteomyelitis who presents with fussiness. Mother states she was concerned that the patient may be septic. Mother states the patient is on prophylactic doxycycline. Mother states that the patient has a wound VAC in place and is supposed to get IV antibiotics after having an abnormal culture. Mother states the patient felt cool and had a low blood pressure. On physical exam, the patient was alert with spontaneous eye opening. Lying in the bed in no acute distress. No accessory muscle use. Oxygen saturation 99% on room air. Abdomen soft and nondistended nondistended. Wound VAC in place noted on the right thigh. Sage catheter in place. Imaging and lab work ordered. Serum hCG was negative. Urinalysis was consistent with urinary tract infection. Chest x-ray was limited however the lungs are free of focal infiltrates. Chem-7 showed elevated sodium of 146. Lactate was within normal limits. CBC was relatively within normal limits. CT showed a sage catheter is present within decompressed urinary bladder with diffuse urinary bladder wall thickening which appears to be accentuated secondary to the decompressed status of the urinary bladder, numerous scattered air-fluid levels are present throughout the colon without evidence of bowel obstruction, and appropriate position of the gastrostomy tube. The patient was admitted for further care. documented in this encounter INFORMATION SOURCE (unrecogn ized section and content) DATE CREATED AUTHOR 02/15/2018 [facility] DATE CREATED AUTHOR AUTHOR'S ORGANIZ ATION 02/23/2018 [facility] DATE CREATED AUTHOR AUTHOR'S ORGANIZ ATION 08/17/2018 [facility] DATE CREATED AUTHOR AUTHOR'S ORGANIZ ATION 07/19/2019 [facility] DATE CREATED AUTHOR AUTHOR'S ORGANIZ ATION 02/11/2021 [facility] DATE CREATED AUTHOR AUTHOR'S ORGANIZ ATION 12/23/2021 [facility] DATE CREATED AUTHOR AUTHOR'S ORGANIZ ATION 07/28/2022 [facility] DATE CREATED AUTHOR AUTHOR'S ORGANIZ ATION 01/18/2024 [facility] DATE CREATED AUTHOR AUTHOR'S ORGANIZ ATION 02/19/2025 [facility] DATE CREATED AUTHOR AUTHOR'S ORGANIZ ATION 05/12/2025 [facility] DATE CREATED AUTHOR AUTHOR'S ORGANIZ ATION 05/14/2025 [facility] DATE CREATED AUTHOR AUTHOR'S ORGANIZ ATION 05/19/2025 [facility] Reason for Visit (unrecogniz ed section and content) Reason Comments colostomy creation pt in need of colost sebastian creation for surgical debridement of presurre ulcer. Specialty Diagnoses / Procedures Referred By Contac t Referred To Contact General Surgery Diagnoses Pressure injury of right ischium, stage 3 (HCC) Werner Kaplan Jr., MD [address] [address] [place] [address] Wilder Cross DO [address] [place] [address] Referral ID Status Reason Start Date Expiration Date V isits Requested Visits Authorized [id number] Closed Specialty Services Required/Lupis ent's Best Interest 01/13/2021 01/13/2022 1 1 Reason Comments Abdominal Pain Reason Comments Fever Respiratory Distress Status Reason Specialty Diagnoses / Procedures Referre d By Contact Referred To Contact Reason Comments Seizures Follow up seizures Reason Comments Establish Care Pt here for eval on ulcer under left buttock. Been a year in [facility] per mother Peg. Have tried everything to help and nothing has worked Status Reason Specialty Diagnoses / Procedures Referred By Contact Referred To Contact Closed Specialty Services Required/Patien t's Best Interest Plastic Surgery Diagnoses Wound healing, delayed Marielle Duque MD [address] [place] [phone] Wilder Noland MD [address] [place] [address] Status Reason Specialty Diagnoses / Procedures Referred By Contact Referred To Contact Pending Review Radiology Diagnoses Wound healing, delayed Procedures NM White Blood Cell Prep Wilder Noland MD [address] [place] [address] Reason Comments Wheezing Shortness of Breath Status Reason Specialty Diagnoses / Procedures Referre d By Contact Referred To Contact Diagnoses Community acquired pneumonia, unspecified laterality Sepsis, due to unspecified organism, unspecified whether acute organ dysfunction present ([facility]) Pneumonia Reason Comments Dysuria Status Reason Specialty Diagnoses / Procedures Referre d By Contact Referred To Contact Diagnoses Dehydration Hypernatremia Acute UTI Severe sepsis (HCC) Cerebral palsy, unspecified type (HCC) Sepsis (HCC) Reason Comments Vascular Access Problem Reason Comments Fever Cough Status Reason Specialty Diagnoses / Procedures Referre d By Contact Referred To Contact Diagnoses Wound infection Acute UTI Sage catheter in place Aspiration pneumonia, unspecified aspiration pneumonia type, unspecified laterality, unspecified part of lung (HCC) Sepsis, due to unspecified organism, unspecified whether acute organ dysfunction present (HCC) Aspiration pneumonia (HCC) Reason Comments Wound Infection Status Reason Specialty Diagnoses / Procedures Referre d By Contact Referred To Contact Diagnoses Generalized epilepsy (HCC) Spastic quadriplegic cerebral palsy (HCC) Chronic indwelling Sage catheter Chronic respiratory failure with hypoxia ([facility]) Sacral wound, initial encounter Pressure injury of right buttock, stage 3 ([facility]) Reason Comments Seizures 6 mo. F/U. ROSIE 08/16 . Pt has been really good. Seizure activity is the same(usually everyday), but does not want med change. Says VERSED does not work pen[facility]. Valium is still best bet. Last seizure was yesterday morning. Pt still has open wound on her bottom, seeing a surgeon soon. Medication Refill Valium phoned in. Pt has refills on other AED's. Reason Comments Shortness of Breath Status Reason Specialty Diagnoses / Procedures Referre d By Contact Referred To Contact Diagnoses 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HCC) Spasticity 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HCC) Chronic respiratory failure with hypoxia ([facility]) COVID-19 virus infection COVID-19 Reason Comments Wound Check Reason Comments Seizures Pt on w/ MOM for fol low up. Reports seizures everyother day. Medication Refill Reason Comments Follow-up yearly Reason Comments Cellulitis Status Reason Specialty Diagnoses / Procedures Referre d By Contact Referred To Contact Diagnoses Wound infection Acute UTI Indwelling catheter present on admission Cerebral palsy, unspecified type ([facility]) UTI (urinary tract infection) Reason Comments Follow-up Pt here for review o f test results Reason Comments Medication Refill Reason Comments Wound Check Status Reason Specialty Diagnoses / Procedures Referred By Contact Referred To Contact Closed Specialty Services Required/Patien t's Best Interest General Surgery Diagnoses Pressure injury of right ischium, stage 3 ([facility]) Werner Kaplan Jr., MD [address] [place] [address] Wilder Cross, [address] [place] [id number] Reason Comments Wound Check Multi-layer Wrap Reason Onset Date Comments Medication Refill 04/29/2021 Reason Onset Date Comments Medication Refill 05/07/2021 Reason Onset Date Comments AIS referral 05/01/2021 Reason Onset Date Comments AIS referral 05/01/2021 Medication Refill 05/09/2021 Reason Onset Date Comments Medication Refill 05/15/2021 Reason Onset Date Comments AIS referral 05/01/2021 Medication Refill 05/09/2021 Medication Refill 05/26/2021 Specialty Diagnoses / Procedures Referred By Gera mariano Referred To Contact Rehabilitation Diagnoses Cerebral palsy, unspecified type (HCC) Stage II pressure ulcer of right buttock (HCC) Cynthia Chan, DIRECTOR OF GLOBAL SALES [address] [place] [address] [place] [address] Referral ID Status Reason Start Date Expiration Date Visits Re quested Visits Authorized [id number] Closed 04/14/2021 04/14/2022 1 1 Reason Comments Seizures Pt here w/ mom for f ollow up. Reports having seizure everyday Reason Onset Date Comments Medication Refill 08/06/2021 Reason Onset Date Comments Medication Refill 11/27/2021 Reason Onset Date Comments Medication Refill 02/16/2022 Reason Comments baclofen pump exposed Specialty Diagnoses / Procedures Referred By Gera mariano Referred To Contact Diagnoses Visit for wound check Baclofen pump failure, initial encounter Presence of intrathecal baclofen pump Referral ID Status Reason Start Date Expiration Date Visits Re quested Visits Authorized [id number] 1 Reason Onset Date Comments Medication Refill 12/10/2022 Reason Comments Consult ref by Celena Fields dx Cervical dystonia [G24.3] Specialty Diagnoses / Procedures Referred By Gera mariano Referred To Contact Neurology Diagnoses Cervical dystonia Celena Fields MD [address] [facility] [address] [place] [id number] Sunita Mejia MD [address] [facility] [address] [place] [id number] Referral ID Status Reason Start Date Expiration Date V isits Requested Visits Authorized [id number] Closed Specialty Services Required/Lupis ent's Best Interest 10/20/2022 10/20/2023 1 1 Reason Onset Date Comments Medication Refill 08/26/2023 Reason Comments Seizures Pt here for follow u p. Pt health policy nurse reports seizures every morning and the seizures seems to be increasing in intensity. Needs refills. Reason Comments Follow-up Follow up, about 3 w eeks ago she had aspiration pneumonia and still has a midline in her arm. Mom has a [employer] company that wants to do a pulse ox test, she wants to do it at home but needs a form to authorize it. Reason Comments Occupational Therapy Neuro Specialty Diagnoses / Procedures Referred By Gera mariano Referred To Contact Rehabilitation Diagnoses Spasticity 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HCC) Ruma Godwin, DIRECTOR OF GLOBAL SALES [address] [facility] [address] [place] [phone] Op Occ Therapy [address] [place] [id number] Referral ID Status Reason Start Date Expiration Date V isits Requested Visits Authorized [id number] Authorized 12/13/2023 12/12/2024 1 30 Reason Comments Seizures Pt here for follow u p. Pt health policy nurse reports no seizures but has been crying constantly since starting her new seizure medication. Reason Onset Date Comments Medication Refill 02/21/2024 Reason Comments Procedure Botox injections Reason Comments Follow-up Reason Onset Date Comments Medication Management 04/05/2024 Reason Comments Seizures Pt here for follow u p. Sustainable Products Marketing Manager reports smaller seizure events since ROSIE. Reason Onset Date Comments Medication Refill 08/01/2024 Reason Comments Seizures Pt calling in for fo llow up with health policy nurse. Sustainable Products Marketing Manager reports frequent seizures since ROSIE. Reason Comments Seizures Pt calling in for fo llow up. Pt health policy nurse reports the patient is still having seizure activity. Reason Onset Date Comments Medication Refill 01/31/2025 Cailin Tang RN - 10/07/2018 8:44 PM Rhonda Richmond RN - 10/07/2018 5:24 PM Perry Caballero CNP - 10/07/2018 4:59 PM Anastasiia Chavez RN - 10/07/2018 4:25 PM EST ED Notes (unrecognized secti on and content) Reviewed Rx for doxycycline to caregiver. F/u with FMD and return to ER if symptoms worsen. Verbalizes understanding. Phlebotomy called to draw as to not delay due to xray verification of PICC. ED PROVIDER NOTE [facility] EMERGENCY DEPARTMENT NAME: Claudine Joseph AGE: 28 y.o. : 1990 VISIT DATE: 10/07/2018 CSN: [id number] PCP: Colette Goode MD Chief Complaint Patient presents with Abdominal Pain History provided by: Parent Altered Mental Status Presenting symptoms: behavior changes and confusion Chronicity: New Duration: 1 week Severity: Moderate Timing: Intermittent Progression: Waxing and waning Associated symptoms: no fever and no seizures Patient is a 28-year-old female with past medical history of cerebral palsy with many associated complications who arrives to the emergency department for evaluation of altered mental status with her mother. Almost all history is obtained through the mother, mother reports that patient is able to usually communicate with yes no blinks and is very interactive but for the last week she is been less interactive, very drowsy and sleeping a lot. She reports that this began approximately 1 week ago, she then got better for a couple of days until 2 days ago when she started to regress again. She has had a decreased urinary output last couple days requiring to be straight cathed by her mother, no foul odor but there was darkened urine present. She believes the patient possibly has a headache as she is blind yes when she asked for this for years her bodies earlier today. Patient also has a wound to her right gluteal area that is been present since March, she has been on and off medications for this currently not on any antibiotics that she is prescribed although her mother did start her on doxycycline 4 days ago that she had around the house for fear of a UTI. Patient was at her wound care clinic today, they did not prescribe any antibiotics, they also stated per the mother it was looking a little better she has not had any fevers at home and vital signs have been stable. Past Medical History: Diagnosis Date Acute respiratory failure (HCC) Due to MRSA pneumonia 04/2016; Allergic rhinitis Anoxic brain damage (HCC) Aspiration, chronic pulmonary Bowel and bladder incontinence Cerebral palsy (HCC) Chronic respiratory failure with hypoxia (HCC) Constipation GERD (gastroesophageal reflux disease) occasional vomiting with gagging MRSA (methicillin resistant Staphylococcus aureus) 04/2016 Bilateral lungs Nonverbal Answers yes with very long blinks per adoptive parent Postoperative retention of urine occasional occurrence that requires straight cath periodically Restrictive lung disease due to kyphoscoliosis Seizures ([facility]) Daily occurrence-Neuro- adoptive mother can't remember name of urologist Past Surgical History: Procedure Laterality Date BACK SURGERY 1999 Marrufo rods placed BACLOFEN PUMP IMPLANTATION X 3- last 2009 CHOLECYSTECTOMY LAMINECTOMY DECOMP THORACIC MULTI LEVEL N/A 07/27/2016 Procedure: T1-2 THORACIC FUSION REVISION ; Surgeon: Kb Ramsey MD; Location: [facility] Main OR; Service: PEG TUBE INSERTION REVISION PAIN PUMP N/A 07/27/2016 Procedure: BACLOFEN PUMP REPLACEMENT ; Surgeon: Kb Ramsey MD; Location: [facility] Main OR; Service: SALIVARY GLAND SURGERY Family History Adopted: Yes Family history unknown: Yes Social History Socioeconomic History Marital status: Single Spouse name: Not on file Number of children: Not on file Years of education: Not on file Highest education level: Not on file Social Needs Financial resource strain: Not on file Food insecurity - worry: Not on file Food insecurity - inability: Not on file Transportation needs - medical: Not on file Transportation needs - non-medical: Not on file Occupational History Not on file Tobacco Use Smoking status: Never Smoker Smokeless tobacco: Never Used Substance and Sexual Activity Alcohol use: No Drug use: No Sexual activity: Not on file Other Topics Concern Not on file Social History Narrative Not on file Previous Medications Medication Sig acetaminophen (TYLENOL) 325 MG tablet 650 mg by G-tube route every 6 (six) hours as needed for pain . baclofen (LIORESAL) 20 MG tablet Take 1 tablet as needed for baclofen withdrawal. baclofen 40,000 mcg/20mL (2,000 mcg/mL) Syrg 670 mcg by Intrathecal route daily. cholecalciferol, vitamin D3, (VITAMIN D3) 2,000 unit cap 2,000 Units by G-tube route every morning. diazePAM (VALIUM) 2 MG tablet Take 3 tablets by mouth once daily as needed for seizure activity . fluticasone (FLONASE) 50 mcg/actuation nasal spray 2 sprays into each nostril daily as needed for rhinitis. guaiFENesin (ROBITUSSIN) 100 mg/5 mL syrup 200 mg by G-tube route 3 (three) times a day as needed for cough . ipratropium (ATROVENT) 0.02 % nebulizer solution Do one breathing treatment twice daily. If she is congested or wheezing or labored, she can do this 4 times daily.. lamoTRIgine (LAMICTAL) 100 MG tablet Take 1 (one) tablet (100 mg total) by mouth 2 (two) times a day . lamoTRIgine (LAMICTAL) 150 MG tablet Take 1 (one) tablet (150 mg total) by mouth 2 (two) times a day Take with the Lamictal 100 mg tablets bid for a total of 250 mg bid. . levETIRAcetam (KEPPRA) 100 mg/mL solution Take 10 mL (1,000 mg total) by mouth 2 (two) times a day . loratadine (CLARITIN) 10 mg tablet 10 mg by G-tube route every morning . medroxyPROGESTERone (DEPO-PROVERA) 150 mg/mL injection Inject 150 mg into the shoulder, thigh, or buttocks every 3 (three) months. metoprolol succinate (TOPROL-XL) 25 MG 24 hr tablet Take 12.5 mg by mouth daily. multivitamin (THERAGRAN) per tablet 1 tablet by G-tube route every morning. omeprazole (PRILOSEC) 20 MG capsule 20 mg by G-tube route every morning . polyethylene glycol (MIRALAX) 17 gram powder Take 17 g by mouth every morning . promethazine (PHENERGAN) 12.5 MG suppository Insert 12.5 mg into the rectum every 6 (six) hours as needed for nausea. Allergies Allergen Reactions Levaquin [Levofloxacin] Rash, flushing with RUE arm swelling. Lactose Intolerance [Lactase] Penicillins Other (See Comments) Blisters Ragweed Unknown Augmentin [Amoxicillin-Pot Clavulanate] Rash Review of Systems Constitutional: Negative for fever. HENT: Positive for sinus pain. Eyes: Negative for discharge. Respiratory: Negative for wheezing. Cardiovascular: Negative for chest pain. Gastrointestinal: Negative for diarrhea. Endocrine: Negative for polyuria. Genitourinary: Negative for dysuria. Musculoskeletal: Negative for back pain. Skin: Positive for wound. Neurological: Negative for seizures. Psychiatric/Behavioral: Positive for confusion. Patient Vitals for the past 24 hrs: BP Temp Temp src Pulse Resp SpO2 Height Weight 10/07/182027 119/80 84 16 93 % 10/07/18 2000 114/77 96 15 100 % 10/07/18 1900 119/77 (!) 102 14 100 % 10/07/18 1818 112/69 99 14 99 % 10/07/18 1700 110/79 (!) 105 15 100 % 10/07/18 1553 100/62 98.4 F (36.9 C) Tympanic (!) 109 18 94 % 4' 5 40.8 kg (90 lb) Physical Exam Constitutional: She is cooperative. Non-toxic appearance. HENT: Right Ear: Tympanic membrane normal. Nose: No epistaxis. Right sinus exhibits maxillary sinus tenderness and frontal sinus tenderness. Left sinus exhibits maxillary sinus tenderness and frontal sinus tenderness. Mouth/Throat: Uvula is midline. Mucous membranes are dry. No oropharyngeal exudate or tonsillar abscesses. Left TM occluded by cerumen Eyes: Conjunctivae are normal. Right eye exhibits no discharge. Left eye exhibits no discharge. Right eye exhibits normal extraocular motion and no nystagmus. Right pupil is reactive. Left pupil is reactive. Pupils are equal. Neck: No neck rigidity. Normal range of motion present. No Brudzinski's sign and no Kernig's sign noted. Patient had is at baseline off to the left, no increased rigidity or stiffness per the mother. No meningeal signs. Cardiovascular: Regular rhythm, S1 normal and S2 normal. Tachycardia present. No murmur heard. Pulses: Radial pulses are 2+ on the right side, and 2+ on the left side. No chest pain to palpitation. Pulmonary/Chest: Effort normal. No stridor. No tachypnea. No wheezes or rhonchi noted. Noisy breath sounds bilaterally due to patient's moaning and attempts to communicate. She is on 3 L nasal cannula baseline. Abdominal: Bowel sounds are normal. No abdominal pain to palpitation. Per the mother patient has had no nausea vomiting constipation or diarrhea bowel movements have been normal, no blood in stool. Neurological: Patient's orientation difficult to obtain due to her underlying medical conditions related to her cerebral palsy and being noncommunicative in regards to speaking. Patient will blink yes note to questions but mostly moans at random times. Patient's mother is at bedside reports that the moaning has increased over the last week signifying that she believes she is in pain. Laboratory & Radiographic Imaging (if done): Results for orders placed or performed during the hospital encounter of 10/07/18 BMP Result Value Ref Range Sodium 157 (H) 135 - 145 mmol/L Potassium 3.4 (L) 3.5 - 5.1 mmol/L Chloride 112 (H) 98 - 108 mmol/L Bicarbonate 37 (H) 21 - 32 mmol/L Anion Gap 11 10 - 20 mmol/L Glucose 97 65 - 99 mg/dL BUN 21 8 - 25 mg/dL Creatinine 0.33 (L) 0.40 - 1.10 mg/dL eGFR 151 >=60 mL/min/1.73 m2 BUN/Creatinine Ratio 63.6 (H) 10.0 - 20.0 Calcium 9.5 8.4 - 10.2 mg/dL Hepatic Function Panel (LFT) Result Value Ref Range Total Protein 7.1 6.0 - 8.0 g/dL Albumin 3.8 3.2 - 5.2 g/dL Total Bilirubin <0.2 0.0 - 1.3 mg/dL Bilirubin, Direct <0.1 0.0 - 0.4 mg/dL Alkaline Phosphatase 130 40 - 140 U/L AST 23 0 - 45 U/L ALT 24 0 - 40 U/L Lipase Result Value Ref Range Lipase 20 15 - 65 U/L Urinalysis Result Value Ref Range Color, Urine Yellow Colorless, Yellow Clarity, Urine Cloudy (A) Clear Specific [place] 1.018 1.005 - 1.025 pH, Urine 9.0 (H) 5.0 - 7.0 Protein, Urine 100 (A) Negative mg/dL Glucose, Urine Negative Negative mg/dL Ketones, Urine Negative Negative mg/dL Bilirubin, Urine Negative Negative Urobilinogen, Urine <2.0 <2.0 mg/dL Blood, Urine Negative Negative Nitrite, Urine Negative Negative Leukocyte Esterase, Urine Negative Negative WBCs, Urine 7 (H) 0 - 5 /hpf Bacteria, Urine Rare (A) None Seen /hpf Amorphous Crystals Few (A) None Seen, Rare /hpf Mucus, Urine Rare None Seen, Rare /lpf Lactic Acid, Plasma Result Value Ref Range Lactic Acid 0.8 0.6 - 2.0 mmol/L Gold Top Result Value Ref Range Extra Tube Hold for add-ons. Light Blue Top Result Value Ref Range Extra Tube Hold for add-ons. CBC Auto Differential Result Value Ref Range WBC 8.46 4.50 - 11.00 K/mcL RBC 4.03 4.00 - 5.20 M/mcL Hemoglobin 12.0 12.0 - 16.0 g/dL Hematocrit 41.4 36.0 - 46.0 % MCV 102.7 (H) 80.0 - 100.0 fL MCH 29.8 26.0 - 34.0 pg MCHC 29.0 (L) 31.0 - 37.0 g/dL Platelets 168 150 - 400 K/mcL RDW - CV 14.2 11.6 - 14.8 % MPV 12.6 9.0 - 15.5 fL Neutrophils 64.6 % Lymphocytes 24.2 % Monocytes 8.3 % Eosinophils 1.8 % Basophils 0.7 % IG Percent 0.40 % Neutrophils Abs 5.47 1.70 - 7.00 K/mcL Lymphocytes Abs 2.05 0.90 - 4.00 K/mcL Monocytes Abs 0.70 0.30 - 0.90 K/mcL Eosinophils Abs 0.15 0.00 - 0.50 K/mcL Basophils Abs 0.06 0.00 - 0.30 K/mcL IG Absolute 0.03 0.00 - 0.30 K/mcL Nucleated RBC 0.0 % Nucleated RBC Abs 0.00 0.00 - 0.00 K/mcL XR Abdomen AP Final Result Nonspecific bowel gas pattern. SAY/ads Workstation ID: [id number] XR Chest 1 View Final Result 1. Limited study, as described above. 2. There is a right arm PICC. The tip is obscured by the Marrufo rods, but it is most likely within the SVC. If clinically indicated, oblique views may be considered. 3. Mild hazy densities in the lungs may be artifactual or due to interstitial edema and/or atelectasis. SAY/ads Workstation ID: [id number] CT Head Or Brain Without Contrast Final Result 1. No definite acute infarct, hemorrhage or acute intracranial process. 2. 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 KKV/mll Workstation ID: [id number] Procedures MDM Patient is a 28-year-old female with a history of cerebral palsy making her exam somewhat difficult who arrived to the emergency department for evaluation of an altered mental status and fatigue per her mother. On physical exam patient only withdrew from pain when palpitation over her sinuses was done. She had no pain to palpitation of her abdomen or chest or legs. The wound on her left buttocks seem to be healing well there was a small amount of cavitation but no necrotic tissue noted. She was also seen recently at her wound care facility earlier today with a stated that he is getting better, she has had no fevers. She has been hemodynamically stable, low suspicion for sepsis in this patient. A urinalysis was also obtained which showed 7 white blood cells, patient denies any painful urination, urine culture will be sent off. Patient's lactic acid was 0.8 her hepatic function panel was unremarkable as was her CBC. CT patient's chest was obtained to rule out any infectious process. CT of her brain was also obtained negative for acute process. I discussed with mother after patient received Toradol stated patient seem to be doing somewhat better especially after receiving the IV fluids. She states she feels comfortable taking the patient home and is relieved after the blood work results. Patient will be discharged home, she will be given a prescription for doxycycline for his sinusitis, she has a reaction to Augmentin. The patient has been informed that they may have pre-hypertension or hypertension based on a blood pressure reading in the Emergency Department. I recommend that the patient call the primary care provider listed on their discharge instructions or a physician of their choice as soon as possible to arrange follow-up in the next 4 weeks for further evaluation of possible pre-hypertension or hypertension. . Clinical Impression: SNOMED CT(R) 1. Acute sinusitis, recurrence not specified, unspecified location ACUTE SINUSITIS ED Disposition ED Disposition Condition Comment Discharge Stable Claudine Joseph discharged to home/self care in stable condition. Follow-up Information 1. Colette Goode MD. Specialty: Family Medicine [address] [facility] [address] Contact information for after-discharge care Follow-up information has not been specified. New Prescriptions doxycycline hyclate (VIBRA-TABS) 100 MG tablet Take 1 (one) tablet (100 mg total) by mouth 2 (two) times a day for 7 days . Perry Will CNP 10/07/182036 Dr. Kilpatrick notified of pt sirs 2. Mom reports sleeping for 2 days, ams for 2 days, reports left pupil did not respond properly Wednesday or Wednesday, reports it has improved today, reports swelling to hands and face x 3 days, reports she started moaning a week ago, then went to lethargic/sleeping x 2 days and now back to moaning again, reports pt moans when she is in pain, pt has normal IQ per mom and blinks eyes for yes, pt non-verbal. Denies fever/chills, reports vitals have been stable per nurses that come in, reports open wound on right glute, pt wears 3L home O2, pt has picc to RUE for antibiotics to wound. Denies N/V/D, pt has some bladder control, mom reports she had to straight cath x 3 times this week, reports pt is voiding better on her own now. mom reports pt is not at baseline mentation. Pt arrives in a wheelchair accompanied by mother. Mother reports change in mentation and a change in appetite. Pt is nonverbal. No fever noted, mother noted darker urine in this encounter Purewick placed for pt to keep wound area clean and dry. WOC/ET RN consult/evaluation note: Evaluated Claudine Joseph for wound located on right ischial tuberosity. Description of wound/Recommendation: Responding to a wound care consult for assessment of a pressure ulcer to the right ischial tuberosity. Pt on the cart, her mother at the bedside. She was assisted to her side. Old dressing removed. The opening to the wound is very small and travels at an angle so I am unable to assess the wound bed. The wound was packed with an entire packing of Aquacel ribbon, leaving out a 4 cm tail. A bordered foam dressing was applied over this. This can remain in place for up to 3 days. The makenzie wound was slightly reddened, Clear-aid barrier ointment applied. Will continue to follow. Surface: Presently on a cart Wound documentation : 11/29/18 1300 Wound (Inpatient and Home Care Only) 11/29/18 1 Ischial Tuberosity Right Date First Assessed/Time First Assessed: 11/29/18 1333 Number: 1 Present on Hospital Admission: Yes Primary Wound Type: Pressure Injury Location: Ischial Tuberosity Wound Location Orientation: Right Wound Bed Characteristics Drainage;Painful;Red Drainage Amount Small Drainage Description Serous Odor None Primary/Secondary Dressing Hydrofiber Ag;Bordered foam dressing Wound Length (cm) 1 cm Wound Width (cm) 1.2 cm Wound Depth (cm) 5.7 cm Wound Surface Area (cm^2) 1.2 cm^2 Pressure Injury Stage U Wound Margin Well defined Makenzie-wound Assessment Temperature WNL;Dry;Clean;Intact Dressing Changed Changed Treatments/Cleansing Cleansed RN notified of assessment and plan. Yoly Tenorio RN This nurse entered room due to being notified pt's mother is concerned she is having an allergic reaction to the antibiotic. This nurse enters room, and infusion is complete. Pt is very red on face, and pt does not have fever or seem to be in stress, and pt's vitals are stable. Contacted Dr. Wernekick, and states she will be down to see pt. Patient sleeping in bed at this time. Denies needs at this time. Call light within reach. Patient resting comfortably in bed at this time. Patient and mother deny needs at this time. Call light within reach. Patient resting comfortably in bed at this time. This RN assisted Resident in coccyx wound dressing change. Patient's mom provided coffee. Patient and mother denies needs at this time. Call light within reach. ED PROVIDER NOTE [facility] EMERGENCY DEPART[facility] NAME: Claudine Joseph AGE: 28 y.o. : 1990 VISIT DATE: 11/28/2018 CSN: [id number] PCP: Colette Goode MD Chief Complaint Patient presents with Fever Respiratory Distress This is a 28-year-old female with history of anoxic brain injury, cerebral palsy, seizure disorder, chronic respiratory failure on 3.5-4 L home O2. She presents with her mother states that she is seems sick for the past 1-2 days. Earlier today around noon, patient was noted to have a fever, cough, crackles, and decreased oxygen saturations. Her mother had to increase the flow rate to 5 L just to maintain 95%. Patient has a history of pneumonia and her mother suspects that this is the cause of her current symptoms. No recent vomiting or diarrhea. No indwelling catheter. Patient has a sacral decubitus has had a sacral decubitus ulcer since March, gradually worsening but with no acute change. Past Medical History: Diagnosis Date Acute respiratory failure (HCC) Due to MRSA pneumonia 04/2016; Allergic rhinitis Anoxic brain damage (HCC) Aspiration, chronic pulmonary Bowel and bladder incontinence Cerebral palsy (HCC) Chronic respiratory failure with hypoxia (HCC) Constipation GERD (gastroesophageal reflux disease) occasional vomiting with gagging MRSA (methicillin resistant Staphylococcus aureus) 04/2016 Bilateral lungs Nonverbal Answers yes with very long blinks per adoptive parent Postoperative retention of urine occasional occurrence that requires straight cath periodically Restrictive lung disease due to kyphoscoliosis Seizures (HCC) Daily occurrence-Neuro- adoptive mother can't remember name of urologist Past Surgical History: Procedure Laterality Date BACK SURGERY 1999 Marrufo rods placed BACLOFEN PUMP IMPLANTATION X 3- last 2009 CHOLECYSTECTOMY LAMINECTOMY DECOMP THORACIC MULTI LEVEL N/A 07/27/2016 Procedure: T1-2 THORACIC FUSION REVISION ; Surgeon: Kb Ramsey MD; Location: [facility] Main OR; Service: PEG TUBE INSERTION REVISION PAIN PUMP N/A 07/27/2016 Procedure: BACLOFEN PUMP REPLACEMENT ; Surgeon: Kb Ramsey MD; Location: [facility] Main OR; Service: SALIVARY GLAND SURGERY Family History Adopted: Yes Family history unknown: Yes Social History Socioeconomic History Marital status: Single Spouse name: Not on file Number of children: Not on file Years of education: Not on file Highest education level: Not on file Social Needs Financial resource strain: Not on file Food insecurity - worry: Not on file Food insecurity - inability: Not on file Transportation needs - medical: Not on file Transportation needs - non-medical: Not on file Occupational History Not on file Tobacco Use Smoking status: Never Smoker Smokeless tobacco: Never Used Substance and Sexual Activity Alcohol use: No Drug use: No Sexual activity: Not on file Other Topics Concern Not on file Social History Narrative Not on file Previous Medications Medication Sig acetaminophen (TYLENOL) 325 MG tablet 650 mg by G-tube route every 6 (six) hours as needed for pain . baclofen (LIORESAL) 20 MG tablet Take 1 tablet as needed for baclofen withdrawal. baclofen 40,000 mcg/20mL (2,000 mcg/mL) Syrg 670 mcg by Intrathecal route daily. cholecalciferol, vitamin D3, (VITAMIN D3) 2,000 unit cap 2,000 Units by G-tube route every morning. diazePAM (VALIUM) 2 MG tablet Take 3 tablets by mouth once daily as needed for seizure activity . fluticasone (FLONASE) 50 mcg/actuation nasal spray 2 sprays into each nostril daily as needed for rhinitis. guaiFENesin (ROBITUSSIN) 100 mg/5 mL syrup 200 mg by G-tube route 3 (three) times a day as needed for cough . ipratropium (ATROVENT) 0.02 % nebulizer solution Do one breathing treatment twice daily. If she is congested or wheezing or labored, she can do this 4 times daily.. lamoTRIgine (LAMICTAL) 100 MG tablet Take 1 (one) tablet (100 mg total) by mouth 2 (two) times a day . lamoTRIgine (LAMICTAL) 150 MG tablet Take 1 (one) tablet (150 mg total) by mouth 2 (two) times a day Take with the Lamictal 100 mg tablets bid for a total of 250 mg bid. . levETIRAcetam (KEPPRA) 100 mg/mL solution Take 10 mL (1,000 mg total) by mouth 2 (two) times a day . loratadine (CLARITIN) 10 mg tablet 10 mg by G-tube route every morning . medroxyPROGESTERone (DEPO-PROVERA) 150 mg/mL injection Inject 150 mg into the shoulder, thigh, or buttocks every 3 (three) months. metoprolol succinate (TOPROL-XL) 25 MG 24 hr tablet Take 12.5 mg by mouth daily. multivitamin (THERAGRAN) per tablet 1 tablet by G-tube route every morning. omeprazole (PRILOSEC) 20 MG capsule 20 mg by G-tube route every morning . polyethylene glycol (MIRALAX) 17 gram powder Take 17 g by mouth every morning . promethazine (PHENERGAN) 12.5 MG suppository Insert 12.5 mg into the rectum every 6 (six) hours as needed for nausea. Allergies Allergen Reactions Levaquin [Levofloxacin] Rash, flushing with RUE arm swelling. Lactose Intolerance [Lactase] Penicillins Other (See Comments) Blisters Ragweed Unknown Augmentin [Amoxicillin-Pot Clavulanate] Rash Review of Systems Unable to perform ROS: Patient nonverbal Patient Vitals for the past 24 hrs: BP Temp Temp src Pulse Resp SpO2 Height Weight 11/28/18 2245 (!) 113 18 98 % 11/28/18 2200 (!) 119 (!) 19 99 % 11/28/18 2115 99.5 F (37.5 C) Oral (!) 126 (!) 21 99 % 11/28/18 2000 (!) 138 (!) 25 98 % 11/28/181909 106/64 (!) 100.9 F (38.3 C) Oral (!) 136 18 96 % 4' 6 40.8 kg (90 lb) Physical Exam Constitutional: No distress. HENT: Head: Normocephalic and atraumatic. Oropharynx moist Eyes: Conjunctivae are normal. Pupils are equal, round, and reactive to light. Cardiovascular: Regular rhythm. Tachycardia present. Pulmonary/Chest: Tachypnea noted. She has wheezes. She has rales. Abdominal: Soft. She exhibits distension. There is no tenderness. Musculoskeletal: She exhibits no edema. Skin: Skin is warm and dry. Nursing note and vitals reviewed. Laboratory & Radiographic Imaging (if done): Results for orders placed or performed during the hospital encounter of 11/28/18 Blood Culture Aerobic/Anaerobic Result Value Ref Range Culture In Progress; No Growth to Date Influenza A,B Rapid Molecular Result Value Ref Range Influenza A Not Detected Not Detected Influenza B Not Detected Not Detected BMP Result Value Ref Range Sodium 155 (H) 135 - 145 mmol/L Potassium 3.6 3.5 - 5.1 mmol/L Chloride 104 98 - 108 mmol/L Bicarbonate 38 (H) 21 - 32 mmol/L Anion Gap 17 10 - 20 mmol/L Glucose 178 (H) 65 - 99 mg/dL BUN 16 8 - 25 mg/dL Creatinine 0.37 (L) 0.40 - 1.10 mg/dL eGFR 146 >=60 mL/min/1.73 m2 BUN/Creatinine Ratio 43.2 (H) 10.0 - 20.0 Calcium 9.5 8.4 - 10.2 mg/dL Lactic Acid, Plasma Result Value Ref Range Lactic Acid 2.9 (H) 0.6 - 2.0 mmol/L Hepatic Function Panel (LFT) Result Value Ref Range Total Protein 8.0 6.0 - 8.0 g/dL Albumin 4.2 3.2 - 5.2 g/dL Total Bilirubin <0.2 0.0 - 1.3 mg/dL Bilirubin, Direct <0.1 0.0 - 0.4 mg/dL Alkaline Phosphatase 147 (H) 40 - 140 U/L AST 20 0 - 45 U/L ALT 22 0 - 40 U/L Urinalysis Result Value Ref Range Color, Urine Yellow Colorless, Yellow Clarity, Urine Cloudy (A) Clear Specific [place] 1.020 1.005 - 1.025 pH, Urine 9.0 (H) 5.0 - 7.0 Protein, Urine 100 (A) Negative mg/dL Glucose, Urine Negative Negative mg/dL Ketones, Urine Negative Negative mg/dL Bilirubin, Urine Negative Negative Urobilinogen, Urine <2.0 <2.0 mg/dL Blood, Urine Negative Negative Nitrite, Urine Negative Negative Leukocyte Esterase, Urine Small (A) Negative WBCs, Urine 6 (H) 0 - 5 /hpf Bacteria, Urine Many (A) None Seen /hpf Transitional Epithelial <1 0 - 1 /hpf Gold Top Result Value Ref Range Extra Tube Hold for add-ons. Light Blue Top Result Value Ref Range Extra Tube Hold for add-ons. POC Venous Blood Gas Panel-Pulm Result Value Ref Range pH, Venous 7.45 (H) 7.32 - 7.42 pCO2, Jeffry 63.4 (H) 41.0 - 51.0 mm Hg pO2, Jeffry 127 (H) 25 - 40 mm Hg Base Excess, Jeffry 16.2 (H) -2.0 - 2.0 HCO3, Jeffry 43.6 (H) 24.0 - 28.0 mmol/L Ionized Calcium 4.4 (L) 4.5 - 5.3 mg/dL Lactic Acid 2.9 (H) 0.6 - 2.0 mmol/L Hemoglobin, Blood Gas 13.3 12.0 - 16.0 g/dL Hematocrit, Calculated 40.8 36.0 - 46.0 % O2 Sat, Jeffry 99.2 % O2 Hb 95.9 94.0 - 98.0 % Carboxyhemoglobin 2.6 (H) 0.0 - 1.5 % of total Hb Methemoglobin 0.8 0.0 - 2.0 % FIO2 0 IMV 0 TIDAL VOLUME 0 RESP RATE 0 Sodium 161 (CH) 135 - 145 mmol/L Potassium 3.6 3.5 - 5.1 mmol/L Glucose 175 (H) 65 - 99 mg/dL Chloride 105 98 - 108 mmol/L POC Venous Blood Gas Panel-Pulm Result Value Ref Range pH, Venous 7.45 (H) 7.32 - 7.42 pCO2, Jeffry 63.4 (H) 41.0 - 51.0 mm Hg pO2, Jeffry 127 (H) 25 - 40 mm Hg Base Excess, Jeffry 16.2 (H) -2.0 - 2.0 HCO3, Jeffry 43.6 (H) 24.0 - 28.0 mmol/L Ionized Calcium 4.4 (L) 4.5 - 5.3 mg/dL Lactic Acid 2.9 (H) 0.6 - 2.0 mmol/L Hemoglobin, Blood Gas 13.3 12.0 - 16.0 g/dL Hematocrit, Calculated 40.8 36.0 - 46.0 % O2 Sat, Jeffry 99.2 % O2 Hb 95.9 94.0 - 98.0 % Carboxyhemoglobin 2.6 (H) 0.0 - 1.5 % of total Hb Methemoglobin 0.8 0.0 - 2.0 % FIO2 0 IMV 0 TIDAL VOLUME 0 RESP RATE 0 Sodium 161 (CH) 135 - 145 mmol/L Potassium 3.6 3.5 - 5.1 mmol/L Glucose 175 (H) 65 - 99 mg/dL Chloride 105 98 - 108 mmol/L CBC Auto Differential Result Value Ref Range WBC 9.45 4.50 - 11.00 K/mcL RBC 4.43 4.00 - 5.20 M/mcL Hemoglobin 12.9 12.0 - 16.0 g/dL Hematocrit 43.5 36.0 - 46.0 % MCV 98.2 80.0 - 100.0 fL MCH 29.1 26.0 - 34.0 pg MCHC 29.7 (L) 31.0 - 37.0 g/dL Platelets 279 150 - 400 K/mcL RDW - CV 13.9 11.6 - 14.8 % MPV 11.9 9.0 - 15.5 fL Neutrophils 65.0 % Lymphocytes 23.0 % Monocytes 9.8 % Eosinophils 0.6 % Basophils 1.2 % IG Percent 0.40 % Neutrophils Abs 6.14 1.70 - 7.00 K/mcL Lymphocytes Abs 2.17 0.90 - 4.00 K/mcL Monocytes Abs 0.93 (H) 0.30 - 0.90 K/mcL Eosinophils Abs 0.06 0.00 - 0.50 K/mcL Basophils Abs 0.11 0.00 - 0.30 K/mcL IG Absolute 0.04 0.00 - 0.30 K/mcL Nucleated RBC 0.0 % Nucleated RBC Abs 0.00 0.00 - 0.00 K/mcL CT Chest Abdomen Pelvis With IV Contrast Only Preliminary Result No evidence for acute abnormality. Extensive thoracolumbar and sacral fusion is seen. Prior cholecystectomy. ANDRADE/rlc Workstation ID: [id number] XR Chest 1 View Final Result Severely limited radiograph due to scoliotic curvature and hardware bridging the entire thoracolumbar spine. Mild diffuse haziness of the lungs may be positional. PD/aw Workstation ID: [id number] Procedures MDM Number of Diagnoses or Management Options Hypernatremia: Sepsis, due to unspecified organism (HCC): Amount and/or Complexity of Data Reviewed Clinical lab tests: ordered and reviewed ED Course as of Nov 28 2357 Mon Nov 28, 2018 2339 On exam, patient remained stable. Updated her mother on test results and plans. [JR] ED Course User Index [JR] Fernando Mcmullen MD . . Clinical Impression: SNOMED CT(R) 1. Sepsis, due to unspecified organism (HCC) SEPSIS 2. Hypernatremia HYPERNATREMIA 3. Acute UTI ACUTE URINARY TRACT INFECTION 4. Pressure injury of skin of sacral region, unspecified injury stage ED Disposition ED Disposition Condition Comment Hospitalize Recommended Level of Care: Med Surg Phone call required?: No Follow-up Information Follow-up information has not been specified. Contact information for after-discharge care Follow-up information has not been specified. Fernando Mcmullen MD 11/29/18 0139 Patient to triage with complaints of possible pneumonia. Per mom, patient is having increased work of breathing and increased fevers. in this encounter Emergency Department Encounter Patient: Claudine Joseph : 1990 ED Provider: Barron GARCIA Caveat - Acuity: Because of the acuity of the patient's condition and potential for life- threatening pathology, a complete HPI, PMHx, FHx, SocHx and ROS cannot be obtained, except as has been otherwise documented. Chief Complaint Patient presents with Wheezing Shortness of Breath Chief Complaint: Cough, possible pneumonia HPI: Claudine Joseph is a 29 y.o. female with notable PMH of being nonverbal, history of MRSA, history of cerebral palsy, anoxic brain injury who presents to the emergency department with concern for possible pneumonia., Right bedside states patient had episode of vomiting within the past 24 hours, saturation decreased from 98% which is her normal down to 94% and her respiratory function seem to be worse than normal. No fevers recently, no rashes, no other notable exacerbating or alleviating factors. ROS (in addition to HPI): Unable to be obtained secondary to patient's extreme clinical status. Past History: Past Medical History: Diagnosis Date Acute respiratory failure (HCC) Due to MRSA pneumonia 04/2016; Allergic rhinitis Anoxic brain damage (HCC) Aspiration, chronic pulmonary Bowel and bladder incontinence Cerebral palsy (HCC) Chronic respiratory failure with hypoxia (HCC) Constipation GERD (gastroesophageal reflux disease) occasional vomiting with gagging MRSA (methicillin resistant Staphylococcus aureus) 04/2016 Bilateral lungs Nonverbal Answers yes with very long blinks per adoptive parent Postoperative retention of urine occasional occurrence that requires straight cath periodically Restrictive lung disease due to kyphoscoliosis Seizures (HCC) Daily occurrence-Neuro- adoptive mother can't remember name of urologist Past Surgical History: Procedure Laterality Date BACK SURGERY 1999 Marrufo rods placed BACLOFEN PUMP IMPLANTATION X 3- last 2009 CHOLECYSTECTOMY INCISION AND DRAINAGE LOWER EXTREMITY Right 12/02/2018 Procedure: INCISION AND DRAINAGE WITH BONE BIOPSY OF RIGHT ISCHIUM; Surgeon: Rad Luque MD; Location: [facility] Main OR; Service: Orthopedic LAMINECTOMY DECOMP THORACIC MULTI LEVEL N/A 07/27/2016 Procedure: T1-2 THORACIC FUSION REVISION ; Surgeon: Kb Ramsey MD; Location: [facility] Main OR; Service: PEG TUBE INSERTION REVISION PAIN PUMP N/A 07/27/2016 Procedure: BACLOFEN PUMP REPLACEMENT ; Surgeon: Kb Ramsey MD; Location: [facility] Main OR; Service: SALIVARY GLAND SURGERY Social History Socioeconomic History Marital status: Single Spouse name: Not on file Number of children: Not on file Years of education: Not on file Highest education level: Not on file Occupational History Not on file Social Needs Financial resource strain: Not on file Food insecurity Worry: Not on file Inability: Not on file Transportation needs Medical: Not on file Non-medical: Not on file Tobacco Use Smoking status: Never Smoker Smokeless tobacco: Never Used Substance and Sexual Activity Alcohol use: No Drug use: No Sexual activity: Not on file Lifestyle Physical activity Days per week: Not on file Minutes per session: Not on file Stress: Not on file Relationships Social connections Talks on phone: Not on file Gets together: Not on file Attends protestant service: Not on file Active member of club or organization: Not on file Attends meetings of clubs or organizations: Not on file Relationship status: Not on file Other Topics Concern Not on file Social History Narrative Not on file Medications/Allergies: Current Facility-Administered Medications: [COMPLETED] Insert peripheral IV, , , Once AND Saline lock IV, , , Once AND sodium chloride (PF) (NS) flush 5 mL, 5 mL, Intravenous, PRN AND sodium chloride 0.9% (NS), 0-150 mL/hr, Intravenous, PRN, Jamir Fuentes PA-C Current Outpatient Medications: acetaminophen (TYLENOL) 325 MG tablet, 650 mg by G-tube route every 6 (six) hours as needed for pain ., Disp: , Rfl: baclofen (LIORESAL) 20 MG tablet, Take 1 tablet as needed for baclofen withdrawal., Disp: 30 tablet, Rfl: 3 baclofen 40,000 mcg/20mL (2,000 mcg/mL) Syrg, 649 mcg by Intrathecal route daily ., Disp: 100 mL, Rfl: 0 cannabidiol, CBD, extract (Epidiolex) 100 mg/mL Soln, Take 3.2 mL by mouth 2 (two) times a day ., Disp: 192 mL, Rfl: 5 catheter (SAGE CATHETER) 14 Fr Misc, by Miscellaneous route ., Disp: , Rfl: cholecalciferol, vitamin D3, (VITAMIN D3) 2,000 unit cap, 2,000 Units by G-tube route every morning., Disp: , Rfl: ciprofloxacin HCl (CIPRO) 100 MG tablet, Take 500 mg by mouth 2 (two) times a day ., Disp: , Rfl: diazePAM (VALIUM) 2 MG tablet, Take 3 tablets by mouth once daily as needed for seizure rescue ., Disp: 30 tablet, Rfl: 2 fluticasone (FLONASE) 50 mcg/actuation nasal spray, 2 sprays into each nostril daily as needed for rhinitis., Disp: , Rfl: guaiFENesin (ROBITUSSIN) 100 mg/5 mL syrup, 200 mg by G-tube route 3 (three) times a day as needed for cough ., Disp: , Rfl: ipratropium (ATROVENT) 0.02 % nebulizer solution, Do one breathing treatment twice daily. If she is congested or wheezing or labored, she can do this 4 times daily.. (Patient not taking: Reported on 06/29/2019 .), Disp: 300 mL, Rfl: 12 lamoTRIgine (LAMICTAL) 100 MG tablet, TAKE 1 TABLET BY MOUTH TWICE DAILY, Disp: 60 tablet, Rfl: 11 lamoTRIgine (LAMICTAL) 100 MG tablet, Take 1 (one) tablet (100 mg total) by mouth 2 (two) times a day ., Disp: 60 tablet, Rfl: 11 lamoTRIgine (LAMICTAL) 150 MG tablet, Take 1 (one) tablet (150 mg total) by mouth 2 (two) times a day Take with the Lamictal 100 mg tablets bid for a total of 250 mg bid. ., Disp: 60 tablet, Rfl: 11 levETIRAcetam (KEPPRA) 100 mg/mL solution, TAKE 10 ML BY MOUTH TWICE DAILY, Disp: 600 mL, Rfl: 11 levETIRAcetam (KEPPRA) 100 mg/mL solution, Take 10 mL (1,000 mg total) by mouth 2 (two) times a day ., Disp: 600 mL, Rfl: 11 lidocaine-prilocaine (EMLA) cream, Apply topically as needed ., Disp: 30 g, Rfl: 0 loratadine (CLARITIN) 10 mg tablet, 10 mg by G-tube route every morning ., Disp: , Rfl: medroxyPROGESTERone (DEPO-PROVERA) 150 mg/mL injection, Inject 150 mg into the shoulder, thigh, or buttocks every 3 (three) months., Disp: , Rfl: meropenem-0.9% sodium chloride (MERREM) 500 mg/50 mL, Infuse 1 g into a venous catheter every 8 (eight) hours ., Disp: , Rfl: metoprolol succinate (TOPROL-XL) 25 MG 24 hr tablet, Take 12.5 mg by mouth daily., Disp: , Rfl: morphine concentrated solution 20 mg/mL, Give 0.25 mL (5 mg total) by G-tube route 2 (two) times a day as needed for pain., Disp: 30 mL, Rfl: 0 multivitamin (THERAGRAN) per tablet, 1 tablet by G-tube route every morning., Disp: , Rfl: omeprazole (PRILOSEC) 20 MG capsule, 20 mg by G-tube route every morning ., Disp: , Rfl: polyethylene glycol (MIRALAX) 17 gram powder, Take 17 g by mouth every morning ., Disp: , Rfl: promethazine (PHENERGAN) 12.5 MG suppository, Insert 12.5 mg into the rectum every 6 (six) hours as needed for nausea., Disp: , Rfl: Allergies Allergen Reactions Levaquin [Levofloxacin] Rash, flushing with RUE arm swelling. Augmentin [Amoxicillin-Pot Clavulanate] Rash Lactose Intolerance [Lactase] Penicillins Other (See Comments) Blisters Ragweed Unknown Physical Exam: VITALS: Reviewed, heart rate 109. GEN: Contractures to the extremities, breathing comfortably on nasal cannula. HEENT: Atraumatic, nasal cannula in place. NECK: Supple, no meningismus. CARDIO: Regular rhythm tachycardia, no murmurs. RESP: Occasional crackles, no wheezes. ABDOMEN: Soft, nonrigid. NEURO: No truncal ataxia, no clonus. EXT: Warm, perfused. SKIN: Normal color, no rash. PSYCH: Unable to be obtained secondary to patient's nonverbal status. Diagnostics: Results for orders placed or performed during the hospital encounter of 09/19/19 BMP Result Value Ref Range Sodium 147 (H) 135 - 145 mmol/L Potassium 3.7 3.5 - 5.1 mmol/L Chloride 100 98 - 108 mmol/L Bicarbonate 35 (H) 21 - 32 mmol/L Anion Gap 16 10 - 20 mmol/L Glucose 124 (H) 65 - 99 mg/dL BUN 15 8 - 25 mg/dL Creatinine 0.32 (L) 0.40 - 1.10 mg/dL eGFR 152 >=60 mL/min/1.73 m2 BUN/Creatinine Ratio 46.9 (H) 10.0 - 20.0 Calcium 10.1 8.4 - 10.2 mg/dL Lactic Acid, Plasma Result Value Ref Range Lactic Acid 1.7 0.6 - 2.0 mmol/L CBC Auto Differential Result Value Ref Range WBC 14.83 (H) 4.50 - 11.00 K/mcL RBC 4.16 4.00 - 5.20 M/mcL Hemoglobin 11.6 (L) 12.0 - 16.0 g/dL Hematocrit 37.6 36.0 - 46.0 % MCV 90.4 80.0 - 100.0 fL MCH 27.9 26.0 - 34.0 pg MCHC 30.9 (L) 31.0 - 37.0 g/dL Platelets 199 150 - 400 K/mcL RDW - CV 15.5 (H) 11.6 - 14.8 % MPV 12.3 9.0 - 15.5 fL Neutrophils 71.6 % Lymphocytes 17.3 % Monocytes 9.4 % Eosinophils 0.7 % Basophils 0.7 % IG Percent 0.30 % Neutrophils Abs 10.61 (H) 1.70 - 7.00 K/mcL Lymphocytes Abs 2.56 0.90 - 4.00 K/mcL Monocytes Abs 1.39 (H) 0.30 - 0.90 K/mcL Eosinophils Abs 0.11 0.00 - 0.50 K/mcL Basophils Abs 0.11 0.00 - 0.30 K/mcL IG Absolute 0.05 0.00 - 0.30 K/mcL Nucleated RBC 0.0 % Nucleated RBC Abs 0.00 0.00 - 0.00 K/mcL XR Chest 1 View Preliminary Result 1. Severe upper thoracic scoliosis with chronic deformities of bilateral ribs and prior bilateral spinal juan pablo fixation again noted. Cholecystectomy. 2. Abnormal areas of increased haziness throughout both lungs again identified likely related to under aeration similar to that seen on prior CT study from 11/28/2018. 3. No acute interval change. [employer] Workstation ID: [id number] Critical Care Time: I spent 32 minutes of critical care time (not including separately billable procedures) in direct care of this patient with sepsis requiring emergent antibiotics, which included initial history and physical exam, interpretation of diagnostic studies, multiple frequent reassessments of clinical status and coordination of care with the admitting physician. ED Course and MDM: In brief, Claudine Joseph is a 29 y.o. female with pertinent PMH of cerebral palsy who presented to the emergency department with concern for possible pneumonia. Otherwise well-appearing, treated with Rocephin and azithromycin, leukocytosis and tachycardia with concern for crackles raises suspicion for community-acquired pneumonia. Patient will be observed in the hospital for further monitoring. BMP was obtained to evaluate patient's renal function and camejo electrolytes and per my interpretation shows, including but not limited to, no severe hyponatremia that would require hypertonic saline, no severe uremia that would require emergent dialysis in the emergency department, and no severe hypoglycemia that requires emergent glucose infusion in the ED. ED Course as of Sep 19 2149 Tue Sep 19, [id number] WBC(!): 14.83 [IS] 2051 SODIUM(!): 147 [IS] 2051 Heart Rate(!): 117 [IS] ED Course User Index [IS] Barron Moncada MD Incidental findings will be managed by inpatient team. Nursing notes and initial vital signs reviewed. Final Impression 1. Sepsis, due to unspecified organism, unspecified whether acute organ dysfunction present (HCC) 2. Community acquired pneumonia, unspecified laterality Barron Moncada MD 09/19/192153 RT notified of order Pt's mother reports patient might have pneumonia , pt had episode of emesis last night and aspirated. Pt is on continous oxygen at 5-6 L/min. Unsure of fever but reports patient is flushed. documented in this encounter Primary RN informed ready intermediate bed. [facility] EMERGENCY DEPARTMENT PCP - Colette Goode MD Chief Complaint Patient presents with Dysuria HPI MEDICAL DECISION MAKING 29-year-old female presents to [facility] emergency department chief complaint of fever. Patient unable to provide any meaningful history and history is obtained through discussion with mother as well as through review of charts. Patient recently admitted secondary pneumonia and findings of UTI at the end of August. She has been home and actually just visiting the hospital earlier this week for addressing her baclofen pump. Patient reported began to develop a fever overnight last night. She has been administered Tylenol most recently at 9 AM. She has had some more sediment noted within her urine per discussion with mother as well. No history of cough. She arrives through triage with a temp of 104.4. 29-year-old female with a history of cerebral palsy and severely disabled cared for by mother at home presents with fever. Patient admitted in our hospital at the end of August with findings of pneumonia as well as urinary tract infection for which she was treated with cefepime and vancomycin. On exam patient demonstrates spastic quadriplegia. Patient is nonverbal. She is noted to be with fever of 104 upon arrival here. Her urine has had change in with sediment today per discussion with mother. Urine does appear to be concentrated specific large 1.032. She has rare bacteria and 140 white cells. Does appear consistent with UTI and urine will be sent for culture. Patient initiated on vancomycin and cefepime as well. Chest x-ray demonstrates limited findings but no focal consolidation noted. Initial lactate is elevated 3.5. Hepatic function panel shows alk phos elevated 153. Patient is base metabolic panel shows hypernatremia with a sodium of 152 At this time patient has had blood cultures initiated. Urine is sent for culture. She is started on broad-spectrum antibiotic coverage include vancomycin and cefepime. Patient is administered a 30 cc/kg bolus. Patient at this time will be admitted to the [facility] service. Should be admitted to intermediate level bed. Mother is updated on plan of care. Patient has had improvement in fever while in the emergency department. She was administered Motrin at 400 mg in her G-tube. Patient also with improved heart rate though it is persistently tachycardic. Patient mother reports she does always have an elevated heart rate. Her blood pressure does appear stable. Respiratory status also appears near patient's baseline on nasal cannula. CLINICAL IMPRESSION 1. Severe sepsis (HCC) 2. Acute UTI 3. Dehydration 4. Cerebral palsy, unspecified type (HCC) Follow-up Information Follow-up information has not been specified. Contact information for after-discharge care Follow-up information has not been specified. . . Labs Reviewed BASIC METABOLIC PANEL - Abnormal; Notable for the following components: Result Value Sodium 152 (*) Chloride 109 (*) Glucose 176 (*) BUN/Creatinine Ratio 40.7 (*) All other components within normal limits Narrative: The eGFR should be used for monitoring renal function only and not for medication dosing. HEPATIC FUNCTION PANEL - Abnormal; Notable for the following components: Alkaline Phosphatase 153 (*) All other components within normal limits URINALYSIS - Abnormal; Notable for the following components: Clarity, Urine Cloudy (*) Specific [place] 1.032 (*) Protein, Urine 100 (*) Leukocyte Esterase, Urine Large (*) WBCs, Urine 140 (*) RBCs, Urine 47 (*) Bacteria, Urine Rare (*) Calcium Oxalate Crystals Rare (*) Mucus, Urine Few (*) All other components within normal limits Narrative: Microscopic examination is performed on all urinalysis samples and only positive findings are reported. The test for blood on the chemical analytic portion of urinalysis may also be positive due to hemoglobinuria and myoglobinuria and if red blood cells are present they are quantified by microscopic examination. LACTIC ACID, PLASMA - Abnormal; Notable for the following components: Lactic Acid 3.5 (*) All other components within normal limits CBC WITH AUTO DIFFERENTIAL - Abnormal; Notable for the following components: WBC 15.04 (*) MCHC 30.1 (*) Neutrophils Abs 12.88 (*) All other components within normal limits URINE AEROBIC CULTURE BLOOD CULTURE AEROBIC/ANAEROBIC BLOOD CULTURE AEROBIC/ANAEROBIC CBC AND DIFFERENTIAL Narrative: The following orders were created for panel order CBC w/ Diff. Procedure Abnormality Status --------- ------ CBC Auto Differential[[id number]] Abnormal Final result Please view results for these tests on the individual orders. REFLEX LACTIC ACID, PLASMA Radiographic Imaging (if any) During ED Visit XR Chest 1 View Non-public Result Marked scoliotic curvature of the thoracic spine. No definite dense focal consolidation is seen. However, please note this is a limited examination due to marked scoliosis. If clinically indicated, please consider chest CT for better evaluation. Workstation ID: [id number] Medications Ordered/Given During ED Visit Medications sodium chloride (PF) (NS) flush 5 mL (has no administration in time range) And sodium chloride 0.9% (NS) (has no administration in time range) lactated Ringers infusion (has no administration in time range) sodium chloride 0.9% (NS) bolus 1,128 mL (0 mL Intravenous Stopped 10/21/19 1433) cefePIMe-dextrose (MAXIPIME) 2 gram/50 mL IVPB 2,000 mg (0 mg Intravenous Stopped 10/21/19 1429) ibuprofen (ADVIL,MOTRIN) tablet 400 mg (400 mg Tube Given 10/21/19 1347) vancomycin (VANCOCIN) IVPB 1000 mg (premix) (0 mg Intravenous Stopped 10/21/19 1437) PROCEDURES (if any, during ED visit): Procedures Review of Systems Review of Systems Unable to perform ROS: Patient nonverbal Constitutional: Positive for fever. Physical Exam Vital Signs During ED Visit (as charted by nursing) Patient Vitals for the past 24 hrs: BP Temp Temp src Pulse Resp SpO2 Height Weight 10/21/19 1530 108/60 (!) 126 (!) 29 100 % 10/21/19 1515 (!) 108/55 (!) 126 (!) 31 100 % 10/21/19 1507 (!) 122/57 (!) 100.6 F (38.1 C) Axillary (!) 126 (!) 19 99 % 10/21/19 1445 107/60 (!) 126 (!) 22 99 % 10/21/19 1415 (!) 106/53 (!) 128 (!) 30 100 % 10/21/19 1407 (!) 107/57 (!) 100.7 F (38.2 C) Axillary (!) 123 (!) 27 100 % 10/21/19 1308 97 % 10/21/19 1256 97 % 10/21/19 1250 (!) 107/54 (!) 104.4 F (40.2 C) Axillary (!) 145 (!) 20 97 % 4' 6 37.6 kg (83 lb) Physical Exam Vitals signs and nursing note reviewed. Constitutional: General: She is not in acute distress. Appearance: She is ill-appearing and diaphoretic. Comments: Patient is nonverbal. Patient with moist mucous membranes noted. Patient with contractures noted to bilateral upper and lower extremities. HENT: Head: Atraumatic. Right Ear: External ear normal. Left Ear: External ear normal. Nose: Nose normal. No congestion or rhinorrhea. Mouth/Throat: Mouth: Mucous membranes are moist. Eyes: General: Right eye: No discharge. Left eye: No discharge. Conjunctiva/sclera: Conjunctivae normal. Neck: Musculoskeletal: Normal range of motion. No neck rigidity or muscular tenderness. Cardiovascular: Rate and Rhythm: Regular rhythm. Tachycardia present. Pulses: Normal pulses. Heart sounds: Normal heart sounds. Pulmonary: Effort: Pulmonary effort is normal. No respiratory distress. Breath sounds: No stridor. Rhonchi (L base) present. No wheezing or rales. Chest: Chest wall: No tenderness. Abdominal: General: There is no distension. Palpations: Abdomen is soft. There is no mass. Tenderness: There is no abdominal tenderness. There is no guarding or rebound. Hernia: No hernia is present. Comments: PEG tube in place to midline abdomen Skin: General: Skin is warm. Capillary Refill: Capillary refill takes less than 2 seconds. Coloration: Skin is not jaundiced or pale. Findings: No bruising, erythema, lesion or rash. Neurological: General: No focal deficit present. Mental Status: She is alert. Mental status is at baseline. Past Medical History Past Medical History: Diagnosis Date Acute respiratory failure ([facility]) Due to MRSA pneumonia 04/2016; Allergic rhinitis Anoxic brain damage ([facility]) Aspiration, chronic pulmonary Bowel and bladder incontinence Cerebral palsy ([facility]) Chronic osteomyelitis of pelvic region, right ([facility]) 2018 required right ischial debridement, followed by Dr. Noland of plastics Chronic respiratory failure with hypoxia ([facility]) 3 L NC, followed by Dr. Stephy Cisse and Dr. Amalia Terry Constipation Epilepsy ([facility]) followed at [facility] neurology clinic GERD (gastroesophageal reflux disease) occasional vomiting with gagging MRSA (methicillin resistant Staphylococcus aureus) 04/2016 Bilateral lungs Muscle spasticity medically refractory and has baclofen pump since 1999, followed at [facility] neuro baclofen pump clinic Nonverbal Answers yes with very long blinks per adoptive parent PEG (percutaneous endoscopic gastrostomy) status ([facility]) Presence of intrathecal baclofen pump [address] 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 Urine retention occasional occurrence that requires straight cath periodically Wheelchair bound Past Surgical History Past Surgical History: Procedure Laterality Date BACK SURGERY 1999 Marrufo rods placed BACLOFEN PUMP IMPLANTATION X 3- last 2009 CHOLECYSTECTOMY INCISION AND DRAINAGE LOWER EXTREMITY Right 12/02/2018 Procedure: INCISION AND DRAINAGE WITH BONE BIOPSY OF RIGHT ISCHIUM; Surgeon: Rad Luque MD; Location: [facility] Main OR; Service: Orthopedic LAMINECTOMY DECOMP THORACIC MULTI LEVEL N/A 07/27/2016 Procedure: T1-2 THORACIC FUSION REVISION ; Surgeon: Kb Ramsey MD; Location: [facility] Main OR; Service: PEG TUBE INSERTION REVISION PAIN PUMP N/A 07/27/2016 Procedure: BACLOFEN PUMP REPLACEMENT ; Surgeon: Kb Ramsey MD; Location: [facility] Main OR; Service: SALIVARY GLAND SURGERY Family History Family History Adopted: Yes Family history unknown: Yes Social History Social History Socioeconomic History Marital status: Single Spouse name: Not on file Number of children: Not on file Years of education: Not on file Highest education level: Not on file Occupational History Not on file Social Needs Financial resource strain: Not on file Food insecurity Worry: Not on file Inability: Not on file Transportation needs Medical: Not on file Non-medical: Not on file Tobacco Use Smoking status: Never Smoker Smokeless tobacco: Never Used Substance and Sexual Activity Alcohol use: No Drug use: No Sexual activity: Not on file Lifestyle Physical activity Days per week: Not on file Minutes per session: Not on file Stress: Not on file Relationships Social connections Talks on phone: Not on file Gets together: Not on file Attends protestant service: Not on file Active member of club or organization: Not on file Attends meetings of clubs or organizations: Not on file Relationship status: Not on file Other Topics Concern Not on file Social History Narrative Not on file Allergies Allergies Allergen Reactions Levaquin [Levofloxacin] Rash, flushing with RUE arm swelling. Augmentin [Amoxicillin-Pot Clavulanate] Rash Lactose Intolerance [Lactase] Penicillins Other (See Comments) Blisters Ragweed Unknown Medications Previous Medications Medication Sig acetaminophen (TYLENOL) 325 MG tablet 650 mg by G-tube route every 6 (six) hours as needed for pain . baclofen (LIORESAL) 20 MG tablet Take 1 tablet as needed for baclofen withdrawal. baclofen 40,000 mcg/20mL (2,000 mcg/mL) Syrg 649 mcg by Intrathecal route daily . cannabidiol, CBD, extract (Epidiolex) 100 mg/mL Soln Take 3.2 mL by mouth 2 (two) times a day . cholecalciferol, vitamin D3, (VITAMIN D3) 2,000 unit cap 2,000 Units by G-tube route every morning. diazePAM (VALIUM) 2 MG tablet Take 3 tablets by mouth once daily as needed for seizure rescue . fluticasone (FLONASE) 50 mcg/actuation nasal spray Instill 1 spray into each nostril daily as needed for rhinitis . guaiFENesin (ROBITUSSIN) 100 mg/5 mL syrup 200 mg by G-tube route 3 (three) times a day as needed for cough . ipratropium (ATROVENT) 0.02 % nebulizer solution Do one breathing treatment twice daily. If she is congested or wheezing or labored, she can do this 4 times daily.. lamoTRIgine (LAMICTAL) 100 MG tablet Take 1 (one) tablet (100 mg total) by mouth 2 (two) times a day . lamoTRIgine (LAMICTAL) 150 MG tablet Take 1 (one) tablet (150 mg total) by mouth 2 (two) times a day Take with the Lamictal 100 mg tablets bid for a total of 250 mg bid. . levETIRAcetam (KEPPRA) 100 mg/mL solution Take 10 mL (1,000 mg total) by mouth 2 (two) times a day . lidocaine-prilocaine (EMLA) cream Apply topically as needed . loratadine (CLARITIN) 10 mg tablet 10 mg by G-tube route every morning . medroxyPROGESTERone (DEPO-PROVERA) 150 mg/mL injection Inject 150 mg into the shoulder, thigh, or buttocks every 3 (three) months. metoprolol succinate (TOPROL-XL) 25 MG 24 hr tablet Take 12.5 mg by mouth daily. morphine 20 mg/5 mL (4 mg/mL) solution Take 5 mg by mouth 2 (two) times a day as needed for pain . multivitamin (THERAGRAN) per tablet 1 tablet by G-tube route every morning. omeprazole (PRILOSEC) 20 MG capsule 20 mg by G-tube route every morning . polyethylene glycol (MIRALAX) 17 gram powder Take 17 g by mouth every morning . promethazine (PHENERGAN) 12.5 MG suppository Insert 12.5 mg into the rectum every 6 (six) hours as needed for nausea. IMPRESSION: 1. Severe sepsis (HCC) 2. Acute UTI 3. Dehydration 4. 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 Sts the patient is in a lot of pain, agitated, in a lot of discomfort. Urine is darker and sediment is present. Pt is non-verbal and is wheelchair bound. documented in this encounter Xray notified for need of chest xray This RN attempted to call Xray x2 regarding portable chest. PCP - Colette Goode MD Chief Complaint Patient presents with Vascular Access Problem HPI 29-year-old, nontoxic, female patient with past medical history including anoxic brain injury, nonverbal, wheelchair-bound, PEG tube, GERD, chronic respiratory failure, epilepsy, presents emergency department with her mother for evaluation of a PICC line that is not flushing. Patient's mother states that the patient has a long history of infection to her gluteal fold. She states that she has been fighting with this infection intermittently for years . She states that recently it is become worse again requiring antibiotics. PICC line was placed in the patient's right upper extremity 4 days ago. Mother states the patient gets antibiotics once daily and today she was unable to flush the line to give her the antibiotics. Patient's mother tried flushing with normal saline and heparin without any luck getting the line to flush. No other concerns at this time. The patient's mother denies any fevers. Review of Systems Nursing note and vitals reviewed. Unable to obtain history (HPI, PFSH and ROS) from patient due to her being non verbal. Patient's mother provides all HPI concerns. Constitutional: Skin: HEENT: Cardiovascular: Patient's mother has concern of nonfunctional PICC line. States that the right upper extremity PICC line is not flushing despite use of normal saline and heparin. Genitourinary: Endocrine: Neurologic: Psychiatric: Hematologic/Lymphatic: Allergic/Immunologic: All other systems are negative except as noted. Past Medical History Past Medical History: Diagnosis Date Acute respiratory failure (HCC) Due to MRSA pneumonia 04/2016; Allergic rhinitis Anoxic brain damage ([facility]) Aspiration, chronic pulmonary Bowel and bladder incontinence Cerebral palsy ([facility]) Chronic osteomyelitis of pelvic region, right ([facility]) 2018 required right ischial debridement, followed by Dr. Noland of plastics Chronic respiratory failure with hypoxia ([facility]) 3 L NC, followed by Dr. Stephy Cisse and Dr. Amalia Terry Constipation Epilepsy ([facility]) followed at [facility] neurology clinic GERD (gastroesophageal reflux disease) occasional vomiting with gagging MRSA (methicillin resistant Staphylococcus aureus) 04/2016 Bilateral lungs Muscle spasticity medically refractory and has baclofen pump since 1999, followed at [facility] neuro baclofen pump clinic Nonverbal Answers yes with very long blinks per adoptive parent PEG (percutaneous endoscopic gastrostomy) status ([facility]) Presence of intrathecal baclofen pump [address] 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 Urine retention occasional occurrence that requires straight cath periodically Wheelchair bound Past Surgical History Past Surgical History: Procedure Laterality Date BACK SURGERY 1999 Marrufo rods placed BACLOFEN PUMP IMPLANTATION X 3- last 2009 CHOLECYSTECTOMY INCISION AND DRAINAGE LOWER EXTREMITY Right 12/02/2018 Procedure: INCISION AND DRAINAGE WITH BONE BIOPSY OF RIGHT ISCHIUM; Surgeon: Rad Luque MD; Location: [facility] Main OR; Service: Orthopedic LAMINECTOMY DECOMP THORACIC MULTI LEVEL N/A 07/27/2016 Procedure: T1-2 THORACIC FUSION REVISION ; Surgeon: Kb Ramsey MD; Location: [facility] Main OR; Service: PEG TUBE INSERTION REVISION PAIN PUMP N/A 07/27/2016 Procedure: BACLOFEN PUMP REPLACEMENT ; Surgeon: Kb Ramsey MD; Location: [facility] Main OR; Service: SALIVARY GLAND SURGERY Family History Family History Adopted: Yes Family history unknown: Yes Social History Social History Socioeconomic History Marital status: Single Spouse name: Not on file Number of children: Not on file Years of education: Not on file Highest education level: Not on file Occupational History Not on file Social Needs Financial resource strain: Not on file Food insecurity Worry: Not on file Inability: Not on file Transportation needs Medical: Not on file Non-medical: Not on file Tobacco Use Smoking status: Never Smoker Smokeless tobacco: Never Used Substance and Sexual Activity Alcohol use: No Drug use: No Sexual activity: Not on file Lifestyle Physical activity Days per week: Not on file Minutes per session: Not on file Stress: Not on file Relationships Social connections Talks on phone: Not on file Gets together: Not on file Attends protestant service: Not on file Active member of club or organization: Not on file Attends meetings of clubs or organizations: Not on file Relationship status: Not on file Other Topics Concern Not on file Social History Narrative Not on file Allergies Allergies Allergen Reactions Levaquin [Levofloxacin] Rash, flushing with RUE arm swelling. Augmentin [Amoxicillin-Pot Clavulanate] Rash Lactose Intolerance [Lactase] Penicillins Other (See Comments) Blisters Ragweed Unknown Medications Claudine Joseph Home Medication Instructions Prior to Surgery SADIE:[id number] Printed on:01/22/20 2547 Medication Information Take last dose on Take the morning of surgery Comment(s) acetaminophen (TYLENOL) 325 MG tablet 650 mg by G-tube route every 6 (six) hours as needed for pain . baclofen (LIORESAL) 20 MG tablet Take 1 tablet as needed for baclofen withdrawal. baclofen 40,000 mcg/20mL (2,000 mcg/mL) Syrg 649 mcg by Intrathecal route daily . cholecalciferol, vitamin D3, (VITAMIN D3) 2,000 unit cap 2,000 Units by G-tube route every morning. diazePAM (VALIUM) 2 MG tablet Take 3 tablets by mouth once daily as needed for seizure rescue . Epidiolex 100 mg/mL Soln TAKE 3.2 ML BY MOUTH TWICE DAILY fluticasone propionate (FLONASE) 50 mcg/actuation nasal spray Instill 1 (one) spray into each nostril daily as needed for rhinitis . guaiFENesin (ROBITUSSIN) 100 mg/5 mL syrup 200 mg by G-tube route 3 (three) times a day as needed for cough . ipratropium (ATROVENT) 0.02 % nebulizer solution Do one breathing treatment twice daily. If she is congested or wheezing or labored, she can do this 4 times daily. . lamoTRIgine (LAMICTAL) 100 MG tablet Take 1 (one) tablet (100 mg total) by mouth 2 (two) times a day . lamoTRIgine (LAMICTAL) 150 MG tablet Take 1 (one) tablet (150 mg total) by mouth 2 (two) times a day Take with the Lamictal 100 mg tablets bid for a total of 250 mg bid. . levETIRAcetam (KEPPRA) 100 mg/mL solution Take 10 mL (1,000 mg total) by mouth 2 (two) times a day . lidocaine-prilocaine (EMLA) cream Apply topically as needed . loratadine (CLARITIN) 10 mg tablet 10 mg by G-tube route every morning . medroxyPROGESTERone (DEPO-PROVERA) 150 mg/mL injection Inject 150 mg into the shoulder, thigh, or buttocks every 3 (three) months. metoprolol succinate (TOPROL-XL) 25 MG 24 hr tablet Take 12.5 mg by mouth daily. multivitamin (THERAGRAN) per tablet 1 tablet by G-tube route every morning. omeprazole (PRILOSEC) 20 MG capsule 20 mg by G-tube route every morning . polyethylene glycol (MIRALAX) 17 gram powder Take 17 g by mouth every morning . promethazine (PHENERGAN) 12.5 MG suppository Insert 12.5 mg into the rectum every 6 (six) hours as needed for nausea. whey protein isolate (Beneprotein) 6 gram-25 kcal/7 gram PwPk Use 1 packet twice a day w/ 60 mL of water. After feeding flush line with 60 mL's water. Use in combination with Replete Tube feeds . Physical Exam Initial Vital Signs BP 100/61 Pulse (!) 104 Temp 98.9 F (37.2 C) Resp 18 Ht 4' 6 Wt 37.6 kg (83 lb) SpO2 99% BMI 20.01 kg/m Vital Signs During ED Visit (as charted by nursing) Patient Vitals for the past 24 hrs: BP Temp Pulse Resp SpO2 Height Weight 01/22/20 1536 100/61 01/22/20 1533 98.9 F (37.2 C) (!) 104 18 99 % 4' 6 37.6 kg (83 lb) Physical Exam Vitals signs and nursing note reviewed. Constitutional: General: She is not in acute distress. Appearance: She is well-developed. She is not diaphoretic. Comments: Nontoxic in appearance. Mother states that she appears that she usually does. Respirations easy and unlabored. This provider wearing mask given pandemic situation. HENT: Head: Normocephalic and atraumatic. Cardiovascular: Rate and Rhythm: Normal rate and regular rhythm. Comments: Not tachycardic on my exam. RUE Picc noted. Strong radial pulse. Cap refill less than 3 seconds distally. Musculoskeletal: General: No deformity. Skin: General: Skin is warm and dry. Neurological: Mental Status: She is alert. Psychiatric: Behavior: Behavior normal. All nursing notes and vital signs reviewed. IMPRESSION/ MDM/ ED COURSE 29-year-old, nontoxic, female patient with past medical history including anoxic brain injury, nonverbal, wheelchair-bound, PEG tube, GERD, chronic respiratory failure, epilepsy, presents emergency department with her mother for evaluation of a PICC line that is not flushing. See above for full HPI and physical exam findings. Imaging: CXR - PENDING Notes/Disposition/MDM: - Consulted with PICC Line team.CXR and Alteplase ordered per their request. -Following PICC line assessment, no alteplase was needed. Apparently the line flushed easily using normal saline. Team feels that this may be related to the patient's mother instilling the heparin earlier today. Feel that the patient is safe to be discharged to home and the patient's mother is happy about this. The patient's mother has already started the patient's antibiotics and states that the running fine. Patient will be discharged home instructed have close follow-up with primary care. Patient's mother is encouraged return to the ER as needed for new worsening symptoms anytime. Patient's mother verbalizes understanding scribbled this plan of care. This patient was independently seen and evaluated along with the Emergency Medicine Physician. All medical decision making was completed along with the physician. FINAL DIAGNOSIS 1. Occlusion of peripherally inserted central catheter (PICC) line, initial encounter (HCC) Labs Reviewed - No data to display Radiographic Imaging (if any) During ED Visit XR Chest 1 View Final Result 1. Right arm PICC which extends superiorly into the internal jugular vein. Recommend retraction by at least 8 cm followed by repositioning into the SVC. 2. Limited study but no definite acute cardiopulmonary process. SAY/rlc Workstation ID: [id number] Medications Ordered/Given During ED Visit Medications - No data to display Procedures Note: To expedite correspondence this note was generated by [facility] voice recognition software. Some grammatical or spelling errors may occur using the system. Elodia Garces CNP 01/22/20 1846 Pt's mother states pt is to get daily antibiotics in her PICC. States PICC was placed 4 days ago at [facility]. Pt's mother states she last accessed PICC yesterday, was flushing with 0.9% NaCl flush, But states she went to access today to give antibiotics but states it would not flush. Pt's mother admits to being provided with saline flushes as well as heparin flushes but states she does not feel comfortable flushing with heparin. Pt denies pt having other symptoms. Message left for PICC team for pt evaluation. Pt was brought in by her mother for a clogged PICC line. Pt is receiving ATB for a wound on her gluteal fold. Pt's mother was unable to flush her PICC today with saline or Heparin. Hx of anoxic brain damage. documented in this encounter Report called to RN for [id number]. Primary rn notified of ready 6 yellow intermediate bed ED PROVIDER NOTE [facility] EMERGENCY DEPARTMENT NAME: Claudine Joseph AGE: 29 y.o. 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 Patient mother provides most of the information as patient is nonverbal at baseline. Patient mother states she has been vomiting she occasionally vomits when she does sometimes she aspirates due to poor reflex. Patient presents tachypneic tachycardic febrile per mother. Mother concerned for pneumonia versus worsening infection of her right intergluteal cleft. Immediately upon my evaluation I made the patient a sepsis alert. Myself and pharmacist consulted. Patient has been on Zosyn in the past and given my concern for worsening skin infection per mother as well as vital signs present and likely aspiration pneumonia initiated Vanco Zosyn after consideration. Past Medical History: Diagnosis Date Acute respiratory failure (HCC) Due to MRSA pneumonia 04/2016; Allergic rhinitis Anoxic brain damage (HCC) Aspiration, chronic pulmonary Bowel and bladder incontinence Cerebral palsy (HCC) Chronic osteomyelitis of pelvic region, right (HCC) 2018 required right ischial debridement, followed by Dr. Noland of plastics Chronic respiratory failure with hypoxia ([facility]) 3 L NC, followed by Dr. Stephy Cisse and Dr. Amalia Terry Constipation Epilepsy ([facility]) followed at [facility] neurology clinic GERD (gastroesophageal reflux disease) occasional vomiting with gagging MRSA (methicillin resistant Staphylococcus aureus) 04/2016 Bilateral lungs Muscle spasticity medically refractory and has baclofen pump since 1999, followed at [facility] neuro baclofen pump clinic Nonverbal Answers yes with very long blinks per adoptive parent PEG (percutaneous endoscopic gastrostomy) status ([facility]) Presence of intrathecal baclofen pump [address] 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 Urine retention occasional occurrence that requires straight cath periodically Wheelchair bound Past Surgical History: Procedure Laterality Date BACK SURGERY 1999 Marrufo rods placed BACLOFEN PUMP IMPLANTATION X 3- last 2009 CHOLECYSTECTOMY INCISION AND DRAINAGE LOWER EXTREMITY Right 12/02/2018 Procedure: INCISION AND DRAINAGE WITH BONE BIOPSY OF RIGHT ISCHIUM; Surgeon: Rad Luque MD; Location: [facility] Main OR; Service: Orthopedic LAMINECTOMY DECOMP THORACIC MULTI LEVEL N/A 07/27/2016 Procedure: T1-2 THORACIC FUSION REVISION ; Surgeon: Kb Ramsey MD; Location: [facility] Main OR; Service: PEG TUBE INSERTION REVISION PAIN PUMP N/A 07/27/2016 Procedure: BACLOFEN PUMP REPLACEMENT ; Surgeon: Kb Ramsey MD; Location: [facility] Main OR; Service: SALIVARY GLAND SURGERY Family History Adopted: Yes Family history unknown: Yes Social History Socioeconomic History Marital status: Single Spouse name: Not on file Number of children: Not on file Years of education: Not on file Highest education level: Not on file Occupational History Not on file Social Needs Financial resource strain: Not on file Food insecurity Worry: Not on file Inability: Not on file Transportation needs Medical: Not on file Non-medical: Not on file Tobacco Use Smoking status: Never Smoker Smokeless tobacco: Never Used Substance and Sexual Activity Alcohol use: No Drug use: No Sexual activity: Not on file Lifestyle Physical activity Days per week: Not on file Minutes per session: Not on file Stress: Not on file Relationships Social connections Talks on phone: Not on file Gets together: Not on file Attends protestant service: Not on file Active member of club or organization: Not on file Attends meetings of clubs or organizations: Not on file Relationship status: Not on file Other Topics Concern Not on file Social History Narrative Not on file Previous Medications Medication Sig acetaminophen (TYLENOL) 325 MG tablet 650 mg by G-tube route every 6 (six) hours as needed for pain . baclofen (LIORESAL) 20 MG tablet Take 1 tablet as needed for baclofen withdrawal. baclofen 40,000 mcg/20mL (2,000 mcg/mL) Syrg 649 mcg by Intrathecal route daily . cholecalciferol, vitamin D3, (VITAMIN D3) 2,000 unit cap 2,000 Units by G-tube route every morning. diazePAM (VALIUM) 2 MG tablet Take 3 tablets by mouth once daily as needed for seizure rescue . doxycycline hyclate (VIBRAMYCIN) 100 MG capsule Take 100 mg by mouth 2 (two) times a day . Epidiolex 100 mg/mL Soln TAKE 3.2 ML BY MOUTH TWICE DAILY fluticasone propionate (FLONASE) 50 mcg/actuation nasal spray Instill 1 (one) spray into each nostril daily as needed for rhinitis . guaiFENesin (ROBITUSSIN) 100 mg/5 mL syrup 200 mg by G-tube route 3 (three) times a day as needed for cough . ipratropium (ATROVENT) 0.02 % nebulizer solution Do one breathing treatment twice daily. If she is congested or wheezing or labored, she can do this 4 times daily. . lamoTRIgine (LAMICTAL) 100 MG tablet Take 1 (one) tablet (100 mg total) by mouth 2 (two) times a day . lamoTRIgine (LAMICTAL) 150 MG tablet Take 1 (one) tablet (150 mg total) by mouth 2 (two) times a day Take with the Lamictal 100 mg tablets bid for a total of 250 mg bid. . levETIRAcetam (KEPPRA) 100 mg/mL solution Take 10 mL (1,000 mg total) by mouth 2 (two) times a day . lidocaine-prilocaine (EMLA) cream Apply topically as needed . loratadine (CLARITIN) 10 mg tablet 10 mg by G-tube route every morning . medroxyPROGESTERone (DEPO-PROVERA) 150 mg/mL injection Inject 150 mg into the shoulder, thigh, or buttocks every 3 (three) months. metoprolol succinate (TOPROL-XL) 25 MG 24 hr tablet Take 12.5 mg by mouth daily. montelukast (SINGULAIR) 10 mg tablet Take 10 mg by mouth daily . multivitamin (THERAGRAN) per tablet 1 tablet by G-tube route every morning. omeprazole (PRILOSEC) 20 MG capsule 20 mg by G-tube route every morning . polyethylene glycol (MIRALAX) 17 gram powder Take 17 g by mouth every morning . promethazine (PHENERGAN) 12.5 MG suppository Insert 12.5 mg into the rectum every 6 (six) hours as needed for nausea. whey protein isolate (Beneprotein) 6 gram-25 kcal/7 gram PwPk Use 1 packet twice a day w/ 60 mL of water. After feeding flush line with 60 mL's water. Use in combination with Replete Tube feeds . Allergies Allergen Reactions Levaquin [Levofloxacin] Rash, flushing with RUE arm swelling. Augmentin [Amoxicillin-Pot Clavulanate] Rash Lactose Intolerance [Lactase] Penicillins Other (See Comments) Blisters Ragweed Unknown Review of Systems Unable to perform ROS: Patient nonverbal All other systems reviewed and are negative. Patient Vitals for the past 24 hrs: BP Temp Temp src Pulse Resp SpO2 Height Weight 02/12/20 1421 115/70 (!) 123 (!) 24 96 % 02/12/20 1254 98/64 99 F (37.2 C) Tympanic (!) 122 (!) 20 95 % 4' 5 37.6 kg (83 lb) Physical Exam Vitals signs reviewed. Constitutional: Appearance: She is ill-appearing. HENT: Head: Normocephalic. Right Ear: Tympanic membrane normal. Left Ear: Tympanic membrane normal. Nose: Nose normal. Mouth/Throat: Mouth: Mucous membranes are moist. Eyes: Pupils: Pupils are equal, round, and reactive to light. Cardiovascular: Pulses: Normal pulses. Pulmonary: Effort: Pulmonary effort is normal. Breath sounds: Wheezing and rales present. Chest: Chest wall: No tenderness. Abdominal: General: Abdomen is flat. There is no distension. Tenderness: There is no abdominal tenderness. There is no guarding. Musculoskeletal: Normal range of motion. Skin: General: Skin is warm. Capillary Refill: Capillary refill takes less than 2 seconds. Neurological: General: No focal deficit present. Mental Status: She is alert. Psychiatric: Mood and Affect: Mood normal. Laboratory & Radiographic Imaging (if done): Results for orders placed or performed during the hospital encounter of 02/12/20 Chem 7 Result Value Ref Range Sodium 144 135 - 145 mmol/L Potassium 3.6 3.5 - 5.1 mmol/L Chloride 97 (L) 98 - 108 mmol/L Bicarbonate 35 (H) 21 - 32 mmol/L Creatinine 0.33 (L) 0.40 - 1.10 mg/dL Glucose 135 (H) 65 - 99 mg/dL BUN 19 8 - 25 mg/dL eGFR 150 >=60 mL/min/1.73 m2 BUN/Creatinine Ratio 57.6 (H) 10.0 - 20.0 Anion Gap 16 10 - 20 mmol/L Lactic Acid, Plasma Result Value Ref Range Lactic Acid 4.0 (H) 0.6 - 2.0 mmol/L Urinalysis Result Value Ref Range Color, Urine Colette (A) Colorless, Yellow Clarity, Urine Cloudy (A) Clear Specific [place] 1.030 (H) 1.005 - 1.025 pH, Urine 8.0 (H) 5.0 - 7.0 Protein, Urine 100 (A) Negative mg/dL Glucose, Urine Negative Negative mg/dL Ketones, Urine Negative Negative mg/dL Bilirubin, Urine Negative Negative Urobilinogen, Urine <2.0 <2.0 mg/dL Blood, Urine Negative Negative Nitrite, Urine Negative Negative Leukocyte Esterase, Urine Small (A) Negative WBCs, Urine 37 (H) 0 - 5 /hpf RBCs, Urine 21 (H) 0 - 3 /hpf Bacteria, Urine Many (A) None Seen /hpf Calcium Oxalate Crystals Few (A) None Seen /hpf Amorphous Crystals Few (A) None Seen, Rare /hpf Mucus, Urine Many (A) None Seen, Rare /lpf CBC Auto Differential Result Value Ref Range WBC 18.37 (H) 4.50 - 11.00 K/mcL RBC 4.43 4.00 - 5.20 M/mcL Hemoglobin 11.7 (L) 12.0 - 16.0 g/dL Hematocrit 40.2 36.0 - 46.0 % MCV 90.7 80.0 - 100.0 fL MCH 26.4 26.0 - 34.0 pg MCHC 29.1 (L) 31.0 - 37.0 g/dL Platelets 238 150 - 400 K/mcL RDW - CV 14.4 11.6 - 14.8 % MPV 11.8 9.4 - 12.4 fL Neutrophils 92.7 % Lymphocytes 4.9 % Monocytes 0.8 % Eosinophils 0.1 % Basophils 0.5 % IG Percent 1.00 % Neutrophils Abs 17.04 (H) 1.70 - 7.00 K/mcL Lymphocytes Abs 0.90 0.90 - 4.00 K/mcL Monocytes Abs 0.15 (L) 0.30 - 0.90 K/mcL Eosinophils Abs 0.01 0.00 - 0.50 K/mcL Basophils Abs 0.09 0.00 - 0.30 K/mcL IG Absolute 0.18 0.00 - 0.30 K/mcL Nucleated RBC 0.0 % Nucleated RBC Abs 0.00 0.00 - 0.00 K/mcL XR Chest 1 View Final Result 1. Limited exam due to the patient's condition. 2. Small amount of bibasilar atelectasis versus early infiltrates. Grossly no consolidation. Workstation ID: [id number] Procedures MDM Number of Diagnoses or Management Options Acute UTI: Aspiration pneumonia, unspecified aspiration pneumonia type, unspecified laterality, unspecified part of lung (HCC): Sage catheter in place: Sepsis, due to unspecified organism, unspecified whether acute organ dysfunction present (HCC): Wound infection: Diagnosis management comments: 20-year-old female presents emergency department for concern for possible aspiration pneumonia versus urinary tract infection for Sage catheter versus intergluteal cleft skin chronic ulcer infection. On exam she is not alert and oriented her mother states she is a slightly more lethargic than she normally is. Able to open her eyes and follow commands when I talk with her loudly she has bilateral inspiratory expiratory wheezes on my exam she was immediately made a sepsis alert on my evaluation. She was initiated on 1 small IV fluid bolus of 500 normal saline given how petite she is will reassess frequently in the emergency department plan is for hospital admission to the ICU Chemistries notable for chloride decreased at 97, bicarb 35, creatinine 0.33, glucose elevated 135, BUN/creatinine 57.6. Lactic acid significantly before. Patient again initiated on IV fluids in the emergency department after being made a sepsis alert. White blood cell count elevated 10.37. Did evaluate her chronic wound of the right gluteal fold with RN at the bedside. I did peel back the wound VAC. I did note in granulation but foul discharge coming from the wound. I feel that she would benefit from inpatient wound evaluation. Urinalysis demonstrates UTI however patient has known Sage. Will culture urine. Did initiate IV Zosyn and vancomycin for coverage of both community-acquired/aspiration pneumonia and wound coverage. Chest x-ray limited due to the patient's condition and small amount of bibasilar atelectasis versus early infiltrate. Grossly no consolidation I will sign this patient out to my emergency department attending. Plan is admission to intensive care unit. Patient stable at this time. Look to [facility] for final plan and disposition of this patient. . . Clinical Impression: 1. Sepsis, due to unspecified organism, unspecified whether acute organ dysfunction present (HCC) 2. Aspiration pneumonia, unspecified aspiration pneumonia type, unspecified laterality, unspecified part of lung (HCC) 3. Wound infection 4. Sage catheter in place 5. Acute UTI ED Disposition None Follow-up Information Follow-up information has not been specified. Contact information for after-discharge care Follow-up information has not been specified. Kj Ybarra PA-C 02/12/20 1520 Sepsis alert called at 1331 Bed: 72 Expected date: Expected time: Means of arrival: Comments: PPE Patient takes prophylactic doxycycline and also has wound vac to buttocks gluteal fold Patient arrives with mother/ caregiver who is concerned for possible PNA. Pt had an episode of emesis about 2 days ago and mother is concerned she may have aspirated. Pt has a productive cough and has needed more oxygen than at her baseline (4L to 6L). Pt also had a 100.4F temp, no use of antipyretics KETTLE GIRL. Pt's mother denies any contact with anyone with suspected or confirmed COVID-19. documented in this encounter Pt and family had Covid over Thanksgiving week Pt arrives by wheelchair, wearing mask, has wound infection and needs PICC line placed documented in this encounter ED PROVIDER NOTE [facility] EMERGENCY DEPARTMENT NAME: Claudine Joseph AGE: 30 y.o. : 1990 VISIT DATE: 09/23/2020 CSN: [id number] PCP: Colette Goode MD Chief Complaint Patient presents with Shortness of Breath HPI Claudine Joseph is a 30 y.o. female that has a past medical history of Acute respiratory failure (HCC), Allergic rhinitis, Anoxic brain damage (HCC), Aspiration, chronic pulmonary, Bowel and bladder incontinence, Cerebral palsy (HCC), Chronic osteomyelitis of pelvic region, right (HCC) (2018), Chronic respiratory failure with hypoxia (HCC), Constipation, Epilepsy ([facility]), GERD (gastroesophageal reflux disease), MRSA (methicillin resistant Staphylococcus aureus) (04/2016), Muscle spasticity, Nonverbal, PEG (percutaneous endoscopic gastrostomy) status ([facility]), Presence of intrathecal baclofen pump (1999), Restrictive lung disease due to kyphoscoliosis, Urine retention, and Wheelchair bound.. This is a 30-year-old female presenting to the emergency department shortness of breath. This chief complaint is not actually accurate. The patient came in here today, coming by her mother who is her caregiver. Apparently mother had brought her to [facility] so she did go to a scheduled appointment. However, mother ended up having a syncopal event and requiring admission to the hospital. Because of this, the social services analyst got involved to see if there is another way to help this patient out, as the patient is quadriplegic and nonverbal. Apparently there is no one else to care for this patient. So the social services analyst suggested that the patient end up getting brought in to the emergency department and checking in. The patient reportedly had a report of low oxygen levels but when I probed about this, it appears that the patient's oxygen take was just kind of low. However, the patient is never had hypoxia. I am told that the patient is at her baseline. I am told the patient has no complaints to bring her in here. With her, is the mother's friend. However, the mother tested positive for Covid prior to admission to the hospital Past Medical History: Diagnosis Date Acute respiratory failure (HCC) Due to MRSA pneumonia 04/2016; Allergic rhinitis Anoxic brain damage (HCC) Aspiration, chronic pulmonary Bowel and bladder incontinence Cerebral palsy (HCC) Chronic osteomyelitis of pelvic region, right ([facility]) 2018 required right ischial debridement, followed by Dr. Noland of plastics Chronic respiratory failure with hypoxia ([facility]) 3 L NC, followed by Dr. Stephy Cisse and Dr. Amalia Terry Constipation Epilepsy ([facility]) followed at [facility] neurology clinic GERD (gastroesophageal reflux disease) occasional vomiting with gagging MRSA (methicillin resistant Staphylococcus aureus) 04/2016 Bilateral lungs Muscle spasticity medically refractory and has baclofen pump since 1999, followed at [facility] neuro baclofen pump clinic Nonverbal Answers yes with very long blinks per adoptive parent PEG (percutaneous endoscopic gastrostomy) status ([facility]) Presence of intrathecal baclofen pump [address] 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 Urine retention occasional occurrence that requires straight cath periodically Wheelchair bound Past Surgical History: Procedure Laterality Date BACK SURGERY 1999 Marrufo rods placed BACLOFEN PUMP IMPLANTATION X 3- last 2009 CHOLECYSTECTOMY INCISION AND DRAINAGE LOWER EXTREMITY Right 12/02/2018 Procedure: INCISION AND DRAINAGE WITH BONE BIOPSY OF RIGHT ISCHIUM; Surgeon: Rad Luque MD; Location: [facility] Main OR; Service: Orthopedic LAMINECTOMY DECOMP THORACIC MULTI LEVEL N/A 07/27/2016 Procedure: T1-2 THORACIC FUSION REVISION ; Surgeon: Kb Ramsey MD; Location: [facility] Main OR; Service: PEG TUBE INSERTION REVISION PAIN PUMP N/A 07/27/2016 Procedure: BACLOFEN PUMP REPLACEMENT ; Surgeon: Kb Ramsey MD; Location: [facility] Main OR; Service: SALIVARY GLAND SURGERY Family History Adopted: Yes Family history unknown: Yes Social History Socioeconomic History Marital status: Single Spouse name: Not on file Number of children: Not on file Years of education: Not on file Highest education level: Not on file Occupational History Not on file Social Needs Financial resource strain: Not on file Food insecurity Worry: Not on file Inability: Not on file Transportation needs Medical: Not on file Non-medical: Not on file Tobacco Use Smoking status: Never Smoker Smokeless tobacco: Never Used Substance and Sexual Activity Alcohol use: No Drug use: No Sexual activity: Not on file Lifestyle Physical activity Days per week: Not on file Minutes per session: Not on file Stress: Not on file Relationships Social connections Talks on phone: Not on file Gets together: Not on file Attends protestant service: Not on file Active member of club or organization: Not on file Attends meetings of clubs or organizations: Not on file Relationship status: Not on file Other Topics Concern Not on file Social History Narrative Not on file Previous Medications Medication Sig acetaminophen (TYLENOL) 325 MG tablet 650 mg by G-tube route every 6 (six) hours as needed for pain . baclofen 40,000 mcg/20mL (2,000 mcg/mL) Syrg 649 mcg by Intrathecal route daily . cannabidioL (Epidiolex) 100 mg/mL Soln Take 3.2 mL by mouth 2 (two) times a day . cholecalciferol, vitamin D3, (VITAMIN D3) 2,000 unit cap 2,000 Units by G-tube route every morning. diazePAM (VALIUM) 2 MG tablet 3 (three) tablets (6 mg total) by Per G Tube route daily as needed For seizures . doxycycline hyclate (VIBRAMYCIN) 100 MG capsule Take 100 mg by mouth 2 (two) times a day . fluticasone propionate (FLONASE) 50 mcg/actuation nasal spray Instill 1 (one) spray into each nostril daily as needed for rhinitis . guaiFENesin (ROBITUSSIN) 100 mg/5 mL syrup 200 mg by G-tube route 3 (three) times a day as needed for cough . ipratropium (ATROVENT) 0.02 % nebulizer solution Do one breathing treatment twice daily. If she is congested or wheezing or labored, she can do this 4 times daily. . lamoTRIgine (LAMICTAL) 100 MG tablet 1 (one) tablet (100 mg total) by Per G Tube route 2 (two) times a day Take with 150mg tablet . lamoTRIgine (LAMICTAL) 150 MG tablet 1 (one) tablet (150 mg total) by Per G Tube route 2 (two) times a day Take with 100mg tablet . levETIRAcetam (KEPPRA) 100 mg/mL solution TAKE 10 ML BY MOUTH TWICE DAILY loratadine (CLARITIN) 10 mg tablet 10 mg by G-tube route every morning . medroxyPROGESTERone (DEPO-PROVERA) 150 mg/mL Syrg INJECT 1ML INTRAMUSCULARLY EVERY 10 TO 13 WEEKS metoprolol succinate (TOPROL-XL) 25 MG 24 hr tablet 12.5 mg daily G-Tube . montelukast (SINGULAIR) 10 mg tablet 10 mg by Per G Tube route daily . multivitamin/iron/folic acid (CENTRUM ORAL) 10 mL by G-tube route every morning . omeprazole (PRILOSEC) 40 MG capsule 40 mg by G-tube route every morning . polyethylene glycol (MIRALAX) 17 gram powder 17 g by Per G Tube route every morning . promethazine (PHENERGAN) 12.5 MG suppository Insert 12.5 mg into the rectum every 6 (six) hours as needed for nausea. Allergies Allergen Reactions Levaquin [Levofloxacin] Rash, flushing with RUE arm swelling. Augmentin [Amoxicillin-Pot Clavulanate] Rash Per mother- tolerates Zosyn, unable to tolerate amoxil (blisters upper extremity) Lactose Intolerance [Lactase] Penicillins Other (See Comments) Blisters- amoxil Ragweed Unknown Review of Systems UTo due to baseline non-verbal Patient Vitals for the past 24 hrs: BP Temp Temp src Pulse Resp SpO2 09/23/20 1431 97 % 09/23/20 1427 18 09/23/20 1414 (!) 117/95 (!) 117 18 97 % 09/23/20 1312 115/72 99 F (37.2 C) Oral 75 18 99 % Physical Exam Vitals signs reviewed. Constitutional: Appearance: She is well-developed. HENT: Head: Normocephalic. Eyes: Pupils: Pupils are equal, round, and reactive to light. Neck: Musculoskeletal: Normal range of motion. Cardiovascular: Rate and Rhythm: Normal rate. Pulmonary: Breath sounds: Decreased breath sounds present. Comments: Saturates well on baseline nasal cannula. Abdominal: Tenderness: There is no abdominal tenderness. Comments: Abdomen nontender, G-tube in place in the left upper abdomen. Musculoskeletal: Normal range of motion. Comments: No strength Skin: General: Skin is dry. Neurological: Mental Status: Mental status is at baseline. Comments: Retracted upper extremities per baseline Laboratory & Radiographic Imaging (if done): Results for orders placed or performed during the hospital encounter of 09/23/20 COVID-19/Influenza A,B Molecular Specimen: Nasopharyngeal; Swab Result Value Ref Range SARS-CoV-2 Detected (A) Not Detected Influenza A Not Detected Not Detected Influenza B Not Detected Not Detected XR Chest 1 View (Results Pending) Procedures MDM This is a 30-year-old female presenting for shortness of breath. This is not an accurate chief complaint. The patient presents emergency department, nonverbal, and concerns of need for social work placement. Patient's mother had brought her in for an appointment today at [facility]. Patient mother had a syncopal event and required admission. Patient is taking care of primarily by her mother, her primary caregiver. Unfortunately, the patient's mother also tested positive for COVID-19. The patient is apparently requiring medical respite care. Because of this, the social services analyst had recommended that she be, patient instructed to the emergency department. Patient has been hemodynamically stable and otherwise well-appearing. I am told that there were no complaints and the patient was scheduled for a normal appointment. I am unable to obtain much collateral given mother is hospitalized and I am unable to reach her secondary to acuity and the patient is nonverbal. Patient's Covid swab was positive. Will do chest x-ray as well as basic lab work. Further disposition after social work consultation and medical screening labs noted above as patient voiced no complaints and I am told there were no complaints, as she was post to just be going to a scheduled appointment. Social work is on board, further disposition per social work and Dr. Grayson. ED Course as of Sep 23 154 Mon Sep 23, 2020 1508 SARS-CoV-2(!): Detected [ED] ED Course User Index [ED] Linda Greene PA-C Clinical Impression: No diagnosis found. ED Disposition None Follow-up Information Follow-up information has not been specified. Contact information for after-discharge care Follow-up information has not been specified. The patient has been informed that they may have pre-hypertension or hypertension based on a blood pressure reading in the Emergency Department. I recommend that the patient call the primary care provider listed on their discharge instructions or a physician of their choice as soon as possible to arrange follow-up in the next 4 weeks for further evaluation of possible pre-hypertension or hypertension. . Linda Greene PA-C 09/23/20 1614 Bed: 57 Expected date: Expected time: Means of arrival: Comments: PT from [facility] Pt is quadrapolegic and mentally handicapped. Was on O2 at home. documented in this encounter This RN called into room per PICC staff who reported pt was having seizure activity. Pt's mother describes pt's seizure activity is similar to what PICC team was describing. Mom states pt usually gets her maintenance dose of seizure meds around 6pm, and gets ativan as needed for seizures at home. Dr. Moncada notified, orders as followed. Vocera call from IV team, they have to wait for culture results prior to placing an PICC line, she will come down and speak with Dr. Moncada. ED PROVIDER NOTE [facility] EMERGENCY DEPARTMENT NAME: Claudine Joseph AGE: 29 y.o. : 1990 VISIT DATE: 05/04/2019 CSN: [id number] PCP: Colette Goode MD Chief Complaint Patient presents with Wound Check 29-year-old female presents emergency room for evaluation. Patient has cerebral palsy. Also has a history of anoxic brain damage. Patient had developed a wound on the right buttock region. She has been followed with the wound care clinic out at [facility]. She is scheduled to see a plastic surgeon next week at [facility]. They were concerned about this becoming more infected. They had done her recent wound culture which grew out Pseudomonas. They were unable to place a PICC line at their hospital so they told her to come here. She is accompanied by her family. They state the patient has not been acting herself over the past week. They are concerned about the Pseudomonas infection in the right buttock region. They were told that they would need a PICC line for IV antibiotics. Past Medical History: Diagnosis Date Acute respiratory failure (HCC) Due to MRSA pneumonia 04/2016; Allergic rhinitis Anoxic brain damage (HCC) Aspiration, chronic pulmonary Bowel and bladder incontinence Cerebral palsy (HCC) Chronic respiratory failure with hypoxia (HCC) Constipation GERD (gastroesophageal reflux disease) occasional vomiting with gagging MRSA (methicillin resistant Staphylococcus aureus) 04/2016 Bilateral lungs Nonverbal Answers yes with very long blinks per adoptive parent Postoperative retention of urine occasional occurrence that requires straight cath periodically Restrictive lung disease due to kyphoscoliosis Seizures (HCC) Daily occurrence-Neuro- adoptive mother can't remember name of urologist Past Surgical History: Procedure Laterality Date BACK SURGERY 1999 Marrufo rods placed BACLOFEN PUMP IMPLANTATION X 3- last 2009 CHOLECYSTECTOMY INCISION AND DRAINAGE LOWER EXTREMITY Right 12/02/2018 Procedure: INCISION AND DRAINAGE WITH BONE BIOPSY OF RIGHT ISCHIUM; Surgeon: Rad Luque MD; Location: [facility] Main OR; Service: Orthopedic LAMINECTOMY DECOMP THORACIC MULTI LEVEL N/A 07/27/2016 Procedure: T1-2 THORACIC FUSION REVISION ; Surgeon: Kb Ramsey MD; Location: [facility] Main OR; Service: PEG TUBE INSERTION REVISION PAIN PUMP N/A 07/27/2016 Procedure: BACLOFEN PUMP REPLACEMENT ; Surgeon: Kb Ramsey MD; Location: [facility] Main OR; Service: SALIVARY GLAND SURGERY Family History Adopted: Yes Family history unknown: Yes Social History Socioeconomic History Marital status: Single Spouse name: Not on file Number of children: Not on file Years of education: Not on file Highest education level: Not on file Occupational History Not on file Social Needs Financial resource strain: Not on file Food insecurity: Worry: Not on file Inability: Not on file Transportation needs: Medical: Not on file Non-medical: Not on file Tobacco Use Smoking status: Never Smoker Smokeless tobacco: Never Used Substance and Sexual Activity Alcohol use: No Drug use: No Sexual activity: Not on file Lifestyle Physical activity: Days per week: Not on file Minutes per session: Not on file Stress: Not on file Relationships Social connections: Talks on phone: Not on file Gets together: Not on file Attends protestant service: Not on file Active member of club or organization: Not on file Attends meetings of clubs or organizations: Not on file Relationship status: Not on file Other Topics Concern Not on file Social History Narrative Not on file Previous Medications Medication Sig acetaminophen (TYLENOL) 325 MG tablet 650 mg by G-tube route every 6 (six) hours as needed for pain . baclofen (LIORESAL) 20 MG tablet Take 1 tablet as needed for baclofen withdrawal. baclofen 40,000 mcg/20mL (2,000 mcg/mL) Syrg 649 mcg by Intrathecal route daily . catheter (SAGE CATHETER) 14 Fr Misc by Miscellaneous route . cholecalciferol, vitamin D3, (VITAMIN D3) 2,000 unit cap 2,000 Units by G-tube route every morning. ciprofloxacin HCl (CIPRO) 100 MG tablet Take 500 mg by mouth 2 (two) times a day . diazePAM (VALIUM) 2 MG tablet Take 3 tablets by mouth once daily as needed for seizure activity . fluticasone (FLONASE) 50 mcg/actuation nasal spray 2 sprays into each nostril daily as needed for rhinitis. guaiFENesin (ROBITUSSIN) 100 mg/5 mL syrup 200 mg by G-tube route 3 (three) times a day as needed for cough . ipratropium (ATROVENT) 0.02 % nebulizer solution Do one breathing treatment twice daily. If she is congested or wheezing or labored, she can do this 4 times daily.. lamoTRIgine (LAMICTAL) 100 MG tablet Take 1 (one) tablet (100 mg total) by mouth 2 (two) times a day . lamoTRIgine (LAMICTAL) 150 MG tablet Take 1 (one) tablet (150 mg total) by mouth 2 (two) times a day Take with the Lamictal 100 mg tablets bid for a total of 250 mg bid. . levETIRAcetam (KEPPRA) 100 mg/mL solution Take 10 mL (1,000 mg total) by mouth 2 (two) times a day . lidocaine-prilocaine (EMLA) cream Apply topically as needed . loratadine (CLARITIN) 10 mg tablet 10 mg by G-tube route every morning . medroxyPROGESTERone (DEPO-PROVERA) 150 mg/mL injection Inject 150 mg into the shoulder, thigh, or buttocks every 3 (three) months. meropenem-0.9% sodium chloride (MERREM) 500 mg/50 mL Infuse 1 g into a venous catheter every 8 (eight) hours . metoprolol succinate (TOPROL-XL) 25 MG 24 hr tablet Take 12.5 mg by mouth daily. morphine concentrated solution 20 mg/mL Give 0.25 mL (5 mg total) by G-tube route 2 (two) times a day as needed for pain. multivitamin (THERAGRAN) per tablet 1 tablet by G-tube route every morning. omeprazole (PRILOSEC) 20 MG capsule 20 mg by G-tube route every morning . polyethylene glycol (MIRALAX) 17 gram powder Take 17 g by mouth every morning . promethazine (PHENERGAN) 12.5 MG suppository Insert 12.5 mg into the rectum every 6 (six) hours as needed for nausea. Allergies Allergen Reactions Levaquin [Levofloxacin] Rash, flushing with RUE arm swelling. Augmentin [Amoxicillin-Pot Clavulanate] Rash Lactose Intolerance [Lactase] Penicillins Other (See Comments) Blisters Ragweed Unknown Review of Systems Unable to perform ROS: Patient nonverbal Patient Vitals for the past 24 hrs: BP Temp Temp src Pulse Resp SpO2 Height Weight 05/04/19 1705 112/76 (!) 109 100 % 05/04/19 1501 115/73 98.5 F (36.9 C) Oral (!) 114 16 98 % 4' 5 42 kg (92 lb 8 oz) Physical Exam Vitals signs and nursing note reviewed. Exam conducted with a drain tiler present. Constitutional: General: She is not in acute distress. HENT: Head: Normocephalic and atraumatic. Mouth/Throat: Mouth: Mucous membranes are moist. Eyes: Pupils: Pupils are equal, round, and reactive to light. Neck: Musculoskeletal: Neck supple. Cardiovascular: Rate and Rhythm: Regular rhythm. Tachycardia present. Pulses: Normal pulses. Pulmonary: Breath sounds: Rhonchi present. Comments: Patient has some anterior bilateral rhonchi. Abdominal: General: Bowel sounds are normal. There is no distension. Palpations: Abdomen is soft. There is no mass. Genitourinary: Skin: General: Skin is warm and dry. Neurological: General: No focal deficit present. Psychiatric: Behavior: Behavior normal. Laboratory & Radiographic Imaging (if done): Results for orders placed or performed during the hospital encounter of 05/04/19 BMP Result Value Ref Range Sodium 154 (H) 135 - 145 mmol/L Potassium 3.8 3.5 - 5.1 mmol/L Chloride 105 98 - 108 mmol/L Bicarbonate 37 (H) 21 - 32 mmol/L Anion Gap 16 10 - 20 mmol/L Glucose 134 (H) 65 - 99 mg/dL BUN 22 8 - 25 mg/dL Creatinine 0.32 (L) 0.40 - 1.10 mg/dL eGFR 152 >=60 mL/min/1.73 m2 BUN/Creatinine Ratio 68.8 (H) 10.0 - 20.0 Calcium 10.4 (H) 8.4 - 10.2 mg/dL Gold Top Result Value Ref Range Extra Tube Hold for add-ons. Light Blue Top Result Value Ref Range Extra Tube Hold for add-ons. Valle Top Result Value Ref Range Extra Tube Hold for add-ons. CBC Auto Differential Result Value Ref Range WBC 8.83 4.50 - 11.00 K/mcL RBC 4.57 4.00 - 5.20 M/mcL Hemoglobin 12.9 12.0 - 16.0 g/dL Hematocrit 44.7 36.0 - 46.0 % MCV 97.8 80.0 - 100.0 fL MCH 28.2 26.0 - 34.0 pg MCHC 28.9 (L) 31.0 - 37.0 g/dL Platelets 120 (L) 150 - 400 K/mcL RDW - CV 14.5 11.6 - 14.8 % MPV 13.0 9.0 - 15.5 fL Neutrophils 61.0 % Lymphocytes 27.1 % Monocytes 9.9 % Eosinophils 0.6 % Basophils 1.1 % IG Percent 0.30 % Neutrophils Abs 5.39 1.70 - 7.00 K/mcL Lymphocytes Abs 2.39 0.90 - 4.00 K/mcL Monocytes Abs 0.87 0.30 - 0.90 K/mcL Eosinophils Abs 0.05 0.00 - 0.50 K/mcL Basophils Abs 0.10 0.00 - 0.30 K/mcL IG Absolute 0.03 0.00 - 0.30 K/mcL Nucleated RBC 0.0 % Nucleated RBC Abs 0.00 0.00 - 0.00 K/mcL XR Chest 1 View Preliminary Result Limited examination due to chest deformity and scoliotic curvature of the visualized spine. No significant changes seen since prior chest x-ray of 11/28/2018. ANDRADE/jw Workstation ID: [id number] Procedures MDM Number of Diagnoses or Management Options Buttock wound, right, initial encounter: Cerebral palsy, unspecified type (HCC): Pressure injury of skin, unspecified injury stage, unspecified location: Diagnosis management comments: No significant lab abnormalities. Vitals are stable. The IV team was able to place a midline in the left arm. She will be discharged home. Her wound clinic physician will direct her IV antibiotic therapy. Amount and/or Complexity of Data Reviewed Clinical lab tests: ordered and reviewed Tests in the radiology section of CPT : ordered and reviewed . . Clinical Impression: 1. Pressure injury of skin, unspecified injury stage, unspecified location 2. Cerebral palsy, unspecified type (HCC) 3. Buttock wound, right, initial encounter ED Disposition ED Disposition Condition Comment Discharge Stable Claudine R Joseph discharged to home/self care in stable condition. Follow-up Information 1. Colette Goode MD. Specialty: Family Medicine Why: call the wound clinic at [facility] who follows with you as well [address] [place] [address] [place] [address] Contact information for after-discharge care Follow-up information has not been specified. jK Moncada DO 05/04/19 193 Pt c/o wound in right gluteal fold, tunneling wound previously packed. Mother reports a culture was performed (positive for pseudamonas) . Pt has been to wound clinic in [facility] and was going to have IV antibiotics given there. Mom reports pt has been lethargic for the last 24 hours, pt has had a high heart rate And lower on oxygen saturation. Mom states [facility] was unable to place IV. Patient reportedly has a wound of the R gluteal fold that is infected. Per mother she has been brought here for evaluation and treatment. documented in this encounter [facility] will be writing orders, PCP - Colette Goode MD Chief Complaint Patient presents with Cellulitis HPI This is a 29-year-old female who presents to the ER with her mother. Patient has cerebral palsy, nonverbal, multiple medical problems. She presents with a known right gluteal fold infection. She has a wound VAC in place. She is chronically has a Sage catheter as well as a James button G-tube with tube feeding. She presents because mom states that last night she was just very fussy crying all night and mom did not know why. She was not sure what was bothering her because she is nonverbal. She states she finally calm down this morning and then went to sleep and then was very hard to arouse for a little bit. Mom states she gave her a bath got her in her chair and then drove here and she did not wake up the entire time. On arrival to ED she states she is now actually acting more appropriate and acting her normal now. She has not had a recent fever mom states she actually felt cold. No nausea or vomiting. No cough or cold symptoms. Mom states she has had sepsis multiple times in the past and just wanted make sure she was not septic. There is supposed to be putting a central line in place to switch her to meropenem IV due to her wound infection. Mom states that they have not done this yet. Review of Systems Constitutional: no fevers Skin: No rash Eyes: No discharge ENMT: No hemoptysis Genitourinary: no obstructive symptoms Endocrine: no polyuria Neurologic: no new numbness Psychiatric: No hallucinations Hematologic/Lymphatic: No abnormal bruising Allergic/Immunologic: no urticaria Other pertinent positives and negatives in HPI Previous Records Reviewed Past Medical History Past Medical History: Diagnosis Date Acute respiratory failure (HCC) Due to MRSA pneumonia 04/2016; Allergic rhinitis Anoxic brain damage ([facility]) Aspiration, chronic pulmonary Bowel and bladder incontinence Cerebral palsy ([facility]) Chronic osteomyelitis of pelvic region, right ([facility]) 2018 required right ischial debridement, followed by Dr. Noland of plastics Chronic respiratory failure with hypoxia ([facility]) 3 L NC, followed by Dr. Stephy Cisse and Dr. Amalia Terry Constipation Epilepsy ([facility]) followed at [facility] neurology clinic GERD (gastroesophageal reflux disease) occasional vomiting with gagging MRSA (methicillin resistant Staphylococcus aureus) 04/2016 Bilateral lungs Muscle spasticity medically refractory and has baclofen pump since 1999, followed at [facility] neuro baclofen pump clinic Nonverbal Answers yes with very long blinks per adoptive parent PEG (percutaneous endoscopic gastrostomy) status ([facility]) Presence of intrathecal baclofen pump [address] 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 Urine retention occasional occurrence that requires straight cath periodically Wheelchair bound Past Surgical History Past Surgical History: Procedure Laterality Date BACK SURGERY 1999 Marrufo rods placed BACLOFEN PUMP IMPLANTATION X 3- last 2009 CHOLECYSTECTOMY INCISION AND DRAINAGE LOWER EXTREMITY Right 12/02/2018 Procedure: INCISION AND DRAINAGE WITH BONE BIOPSY OF RIGHT ISCHIUM; Surgeon: Rad Luque MD; Location: [facility] Main OR; Service: Orthopedic LAMINECTOMY DECOMP THORACIC MULTI LEVEL N/A 07/27/2016 Procedure: T1-2 THORACIC FUSION REVISION ; Surgeon: Kb Ramsey MD; Location: [facility] Main OR; Service: PEG TUBE INSERTION REVISION PAIN PUMP N/A 07/27/2016 Procedure: BACLOFEN PUMP REPLACEMENT ; Surgeon: Kb Ramsey MD; Location: [facility] OR; Service: SALIVARY GLAND SURGERY Family History Family History Adopted: Yes Family history unknown: Yes Social History Social History Socioeconomic History Marital status: Single Spouse name: Not on file Number of children: Not on file Years of education: Not on file Highest education level: Not on file Occupational History Not on file Social Needs Financial resource strain: Not on file Food insecurity Worry: Not on file Inability: Not on file Transportation needs Medical: Not on file Non-medical: Not on file Tobacco Use Smoking status: Never Smoker Smokeless tobacco: Never Used Substance and Sexual Activity Alcohol use: No Drug use: No Sexual activity: Not on file Lifestyle Physical activity Days per week: Not on file Minutes per session: Not on file Stress: Not on file Relationships Social connections Talks on phone: Not on file Gets together: Not on file Attends protestant service: Not on file Active member of club or organization: Not on file Attends meetings of clubs or organizations: Not on file Relationship status: Not on file Other Topics Concern Not on file Social History Narrative Not on file Allergies Allergies Allergen Reactions Levaquin [Levofloxacin] Rash, flushing with RUE arm swelling. Augmentin [Amoxicillin-Pot Clavulanate] Rash Per mother- tolerates Zosyn, unable to tolerate amoxil (blisters upper extremity) Lactose Intolerance [Lactase] Penicillins Other (See Comments) Blisters- amoxil Ragweed Unknown Medications Claudine Joseph Home Medication Instructions Prior to Surgery SADIE:[id number] Printed on:03/21/20 8245 Medication Information Take last dose on Take the morning of surgery Comment(s) acetaminophen (TYLENOL) 325 MG tablet 650 mg by G-tube route every 6 (six) hours as needed for pain . baclofen 40,000 mcg/20mL (2,000 mcg/mL) Syrg 649 mcg by Intrathecal route daily . cholecalciferol, vitamin D3, (VITAMIN D3) 2,000 unit cap 2,000 Units by G-tube route every morning. diazePAM (VALIUM) 2 MG tablet 6 mg by Per G Tube route daily as needed For seizures . Epidiolex 100 mg/mL Soln TAKE 3.2 ML BY MOUTH TWICE DAILY fluticasone propionate (FLONASE) 50 mcg/actuation nasal spray Instill 1 (one) spray into each nostril daily as needed for rhinitis . guaiFENesin (ROBITUSSIN) 100 mg/5 mL syrup 200 mg by G-tube route 3 (three) times a day as needed for cough . ipratropium (ATROVENT) 0.02 % nebulizer solution Do one breathing treatment twice daily. If she is congested or wheezing or labored, she can do this 4 times daily. . lamoTRIgine (LAMICTAL) 100 MG tablet 100 mg by Per G Tube route 2 (two) times a day Take with 150mg tablet . lamoTRIgine (LAMICTAL) 150 MG tablet 150 mg by Per G Tube route 2 (two) times a day Take with 100mg tablet . levETIRAcetam (KEPPRA) 100 mg/mL solution 10 mg/kg by Per G Tube route 2 (two) times a day . loratadine (CLARITIN) 10 mg tablet 10 mg by G-tube route every morning . metoprolol succinate (TOPROL-XL) 25 MG 24 hr tablet 12.5 mg daily G-Tube . montelukast (SINGULAIR) 10 mg tablet 10 mg by Per G Tube route daily . multivitamin/iron/folic acid (CENTRUM ORAL) 10 mL by G-tube route every morning . omeprazole (PRILOSEC) 20 MG capsule 20 mg by G-tube route every morning . polyethylene glycol (MIRALAX) 17 gram powder 17 g by Per G Tube route every morning . promethazine (PHENERGAN) 12.5 MG suppository Insert 12.5 mg into the rectum every 6 (six) hours as needed for nausea. whey protein isolate 6 gram-25 kcal/7 gram Powd Take 1 packet by mouth daily . Physical Exam Initial Vital Signs BP (!) 96/56 (BP Location: Right arm, Patient Position: Sitting) Pulse 84 Temp 98.8 F (37.1 C) (Axillary) Resp 14 Ht 4' 5 Wt 38.6 kg (85 lb) SpO2 100% BMI 21.28 kg/m Vital Signs During ED Visit (as charted by nursing) Patient Vitals for the past 24 hrs: BP Temp Temp src Pulse Resp SpO2 Height Weight 03/21/20 1700 (!) 96/56 84 14 100 % 03/21/20 1600 94/64 89 17 99 % 03/21/20 1447 93 17 100 % 03/21/20 1430 101/71 (!) 103 14 100 % 03/21/20 1413 (!) 84/56 98.8 F (37.1 C) Axillary 88 16 99 % 4' 5 38.6 kg (85 lb) Physical Exam Vitals signs and nursing note reviewed. Constitutional: Appearance: Normal appearance. Comments: For her abilities. Mom states she is now acting normal. HENT: Head: Normocephalic. Nose: Nose normal. Mouth/Throat: Mouth: Mucous membranes are moist. Eyes: Extraocular Movements: Extraocular movements intact. Pupils: Pupils are equal, round, and reactive to light. Neck: Musculoskeletal: Normal range of motion and neck supple. Cardiovascular: Rate and Rhythm: Normal rate and regular rhythm. Pulses: Normal pulses. Heart sounds: Normal heart sounds. Pulmonary: Effort: Pulmonary effort is normal. Breath sounds: Normal breath sounds. Abdominal: Palpations: Abdomen is soft. Tenderness: There is no abdominal tenderness. Musculoskeletal: Comments: Contracted. No acute abnormalities. Skin: General: Skin is warm. Capillary Refill: Capillary refill takes less than 2 seconds. Neurological: General: No focal deficit present. Mental Status: She is alert and oriented to person, place, and time. Comments: Mom states acting her normal at this time. Psychiatric: Mood and Affect: Mood normal. Behavior: Behavior normal. Thought Content: Thought content normal. Judgment: Judgment normal. IMPRESSION/ ED COURSE Laboratory Results Labs Reviewed CHEM 7 - Abnormal; Notable for the following components: Result Value Sodium 146 (*) Creatinine 0.33 (*) BUN/Creatinine Ratio 42.4 (*) All other components within normal limits Narrative: The eGFR should be used for monitoring renal function only and not for medication dosing. URINALYSIS - Abnormal; Notable for the following components: Clarity, Urine Cloudy (*) pH, Urine 8.0 (*) Leukocyte Esterase, Urine Large (*) WBCs, Urine 113 (*) Bacteria, Urine Many (*) Budding Yeast, Urine Rare (*) Hyphal Yeast, Urine Rare (*) Calcium Oxalate Crystals Many (*) Amorphous Crystals Few (*) Mucus, Urine Few (*) All other components within normal limits Narrative: Microscopic examination is performed on all urinalysis samples and only positive findings are reported. The test for blood on the chemical analytic portion of urinalysis may also be positive due to hemoglobinuria and myoglobinuria and if red blood cells are present they are quantified by microscopic examination. CBC WITH AUTO DIFFERENTIAL - Abnormal; Notable for the following components: MCH 25.8 (*) MCHC 29.1 (*) All other components within normal limits LACTIC ACID, PLASMA - Normal HCG, SERUM, QUALITATIVE - Normal Narrative: Negative: The result is less than or equal to 5 mIU/mL of HCG. BLOOD CULTURE AEROBIC/ANAEROBIC BLOOD CULTURE AEROBIC/ANAEROBIC URINE AEROBIC CULTURE COVID-19, MOLECULAR CBC AND DIFFERENTIAL Narrative: The following orders were created for panel order CBC w/ Diff. Procedure Abnormality Status --------- ------ CBC Auto Differential[[id number]] Abnormal Final result Please view results for these tests on the individual orders. Imaging Results CT Abdomen Pelvis With IV Contrast Only Preliminary Result 1. Sage catheter is present within decompressed urinary bladder. There appears to be diffuse urinary bladder wall thickening which appears to be accentuated secondary to the decompressed status of the urinary bladder. Recommend correlation for cystitis with urinalysis findings. 2. Numerous scattered air-fluid levels are present throughout the colon without evidence of bowel obstruction. No inflammatory changes are identified. 3. Appropriate position of the gastrostomy tube. 4. Normal appendix. TJL/lab Workstation ID: [id number] XR Chest 1 View Final Result 1. Limited exam due to the patient's condition. 2. Lungs are free of focal infiltrates. 4. Marked scoliotic deformity of the spine with convexity to the right. Workstation ID: [id number] . . FINAL DIAGNOSIS 1. Acute UTI 2. Wound infection Labs Reviewed CHEM 7 - Abnormal; Notable for the following components: Result Value Sodium 146 (*) Creatinine 0.33 (*) BUN/Creatinine Ratio 42.4 (*) All other components within normal limits Narrative: The eGFR should be used for monitoring renal function only and not for medication dosing. URINALYSIS - Abnormal; Notable for the following components: Clarity, Urine Cloudy (*) pH, Urine 8.0 (*) Leukocyte Esterase, Urine Large (*) WBCs, Urine 113 (*) Bacteria, Urine Many (*) Budding Yeast, Urine Rare (*) Hyphal Yeast, Urine Rare (*) Calcium Oxalate Crystals Many (*) Amorphous Crystals Few (*) Mucus, Urine Few (*) All other components within normal limits Narrative: Microscopic examination is performed on all urinalysis samples and only positive findings are reported. The test for blood on the chemical analytic portion of urinalysis may also be positive due to hemoglobinuria and myoglobinuria and if red blood cells are present they are quantified by microscopic examination. CBC WITH AUTO DIFFERENTIAL - Abnormal; Notable for the following components: MCH 25.8 (*) MCHC 29.1 (*) All other components within normal limits LACTIC ACID, PLASMA - Normal HCG, SERUM, QUALITATIVE - Normal Narrative: Negative: The result is less than or equal to 5 mIU/mL of HCG. BLOOD CULTURE AEROBIC/ANAEROBIC BLOOD CULTURE AEROBIC/ANAEROBIC URINE AEROBIC CULTURE COVID-19, MOLECULAR CBC AND DIFFERENTIAL Narrative: The following orders were created for panel order CBC w/ Diff. Procedure Abnormality Status --------- ------ CBC Auto Differential[[id number]] Abnormal Final result Please view results for these tests on the individual orders. Radiographic Imaging (if any) During ED Visit CT Abdomen Pelvis With IV Contrast Only Preliminary Result 1. Sage catheter is present within decompressed urinary bladder. There appears to be diffuse urinary bladder wall thickening which appears to be accentuated secondary to the decompressed status of the urinary bladder. Recommend correlation for cystitis with urinalysis findings. 2. Numerous scattered air-fluid levels are present throughout the colon without evidence of bowel obstruction. No inflammatory changes are identified. 3. Appropriate position of the gastrostomy tube. 4. Normal appendix. TJL/lab Workstation ID: [id number] XR Chest 1 View Final Result 1. Limited exam due to the patient's condition. 2. Lungs are free of focal infiltrates. 4. Marked scoliotic deformity of the spine with convexity to the right. Workstation ID: [id number] Medications Ordered/Given During ED Visit Medications sodium chloride (PF) (NS) flush 5 mL (has no administration in time range) And sodium chloride 0.9% (NS) (has no administration in time range) cefTRIAXone (ROCEPHIN) IVPB 1 g (premix) (1,000 mg Intravenous New Bag 03/21/20 1738) sodium chloride (PF) (NS) 0.9 % contrast line flush 10 mL (10 mL Intravenous Given 03/21/20 1713) And sodium chloride (PF) (NS) 0.9 % contrast line flush 80 mL (80 mL Intravenous Given 03/21/20 1712) And iopamidoL (ISOVUE-370) 76 % injection 75 mL (75 mL Intravenous Contrast Administered 03/21/20 1711) Procedures Note: To expedite correspondence this note was generated by [facility] voice recognition software. Some grammatical or spelling errors may occur using the system. All imaging has been read by a Radiologist. Emilio Maldonado CNP 03/21/201753 Patient arrives with O2 in place, Sage in place, wound vac to left buttocks, and a PEG tube to abdomen. Patient's mother reports, She takes Doxycycline prophylacticly, but they did a wound culture on Wednesday and wanted to put her on Meropenem. They were going to put a midline today, but due to her being more lethargic and not acting normal I brought her here. Patient is here with her mother. Patient is experiencing and infectious process involving a wound of her LR gluteal fold. Mom is concerned patient may be septic. documented in this encounter PICC team at [facility] EMERGENCY DEPARTMENT EMERGENCY MEDICINE NOTE PCP: Colette Goode MD Encounter Date: 11/27/20 Chief Complaint: Chief Complaint Patient presents with Wound Infection History of Presenting Illness: Claudine Joseph is a 30 y.o. female with a past medical history that includes has a past medical history of Acute respiratory failure ([facility]), Allergic rhinitis, Anoxic brain damage (HCC), Aspiration, chronic pulmonary, Bowel and bladder incontinence, Cerebral palsy (HCC), Chronic osteomyelitis of pelvic region, right (HCC) (2018), Chronic respiratory failure with hypoxia (HCC), Constipation, Epilepsy (HCC), GERD (gastroesophageal reflux disease), MRSA (methicillin resistant Staphylococcus aureus) (04/2016), Muscle spasticity, Nonverbal, PEG (percutaneous endoscopic gastrostomy) status ([facility]), Presence of intrathecal baclofen pump (1999), Restrictive lung disease due to kyphoscoliosis, Urine retention, and Wheelchair bound.. 30 y.o. female with a history of spastic cerebral palsy, quadriplegia, chronic respiratory failure, seizures, decubitus ulcers with wound vac, chronic sage and PEG tube who had COVID-19 in August 2020. She presents here today along with her mother for a pick line. Patient is had a chronic wound, has been recently prescribed antibiotics by her project management specialist. PICC line. They present the paper here. It is included the bottom of the note. Patient has no other new complaints or symptoms. Patient is nonverbal, history is obtained from father who is at bedside. No interval symptom changes. Acting at baseline. ED Course/ Medical Decision Making 30-year-old female presents here today for evaluation along with mother. PICC line was placed by consulting IV specialty team. First dose of gentamicin was given. Laboratories alts show mild leukocytosis, inflammatory markers which is not unexpected given her known chronic decubitus wound. Blood cultures were sent and I told mom to have her project management specialist follow-up on these results. I discussed with the patient at the bedside the results of any laboratory testing and imaging performed and the importance of reviewing these results with your primary care doctor as there often are incidental findings that are not related to today's visit, but will need to be addressed. The patient indicated understanding of the discharge instructions that were provided in layman's terms and had no further questions. The patient will attempt to obtain follow up for re-evaluation as I recommended as well as any additional instructions discussed. Patient was provided with a copy of their discharge instructions, follow-up, and reasons to return. Disposition: DISCHARGED IMPRESSION: 1. S/P PICC central line placement 2. Wound infection Follow-Up Plan We discussed today if you develop any new or worsening symptoms that you should contact your primary care doctor or return to the emergency department for a re-evaluation. Symptoms can and do change and new symptoms can lead to clues for additional medical problems. Concerning symptoms include, but are not limited to: increasing pain, numbness, weakness, fever, shortness of breath, unusual headache, inability to tolerate food or drink. Follow-up Information 1. Colette Goode MD. Specialty: Family Medicine [address] [place] [address] Contact information for after-discharge care Follow-up information has not been specified. . . ([facility] Software was used to transcribe this note) ED Course: ED Course as of Nov 28 1923WedNov 27, 2020 1219 Baseline heart rate per mother. Heart Rate(!): 117 [BR] ED Course User Index [BR] Rene Dunaway MD Diagnostics Laboratory (if any, during ED visit): Labs Reviewed CHEM 7 - Abnormal; Notable for the following components: Result Value Sodium 153 (*) Chloride 110 (*) Bicarbonate 33 (*) Creatinine 0.33 (*) BUN/Creatinine Ratio 75.8 (*) All other components within normal limits Narrative: The eGFR should be used for monitoring renal function only and not for medication dosing. SEDIMENTATION RATE - Abnormal; Notable for the following components: Sed Rate 62 (*) All other components within normal limits CBC WITH AUTO DIFFERENTIAL - Abnormal; Notable for the following components: WBC 11.27 (*) Hematocrit 47.1 (*) MCHC 29.1 (*) Platelets 123 (*) Neutrophils Abs 7.84 (*) All other components within normal limits CRP, INFLAMMATION - Normal HCG, SERUM, QUALITATIVE - Normal Narrative: Negative: The result is less than or equal to 5 mIU/mL of HCG. BLOOD CULTURE AEROBIC/ANAEROBIC BLOOD CULTURE AEROBIC/ANAEROBIC CBC AND DIFFERENTIAL Narrative: The following orders were created for panel order CBC w/ Diff. Procedure Abnormality Status --------- ------ CBC Auto Differential[[id number]] Abnormal Final result Please view results for these tests on the individual orders. URINALYSIS RADIOGRAPHIC IMAGING (if any, during ED visit): No orders to display MEDICATIONS ORDERED/GIVEN (if any, during ED visit): Medications sodium chloride (PF) (NS) flush 5 mL (has no administration in time range) And sodium chloride 0.9% (NS) (has no administration in time range) sodium chloride 0.9% (NS) (100 mL/hr Intravenous Not Given 11/27/20 1305) sodium chloride (PF) (NS) flush 10 mL (has no administration in time range) sodium chloride (PF) (NS) flush 10-20 mL (has no administration in time range) alteplase (CATH KENNY) injection 2 mg (has no administration in time range) gentamicin (GARAMYCIN) 220 mg in sodium chloride 0.9 % (NS) 105.5 mL IVPB (0 mg Intravenous Stopped 11/27/20 1701) MDM Review of Systems: Review of Systems Constitutional: Negative for fever and unexpected weight change. HENT: Negative for sore throat and voice change. Eyes: Negative for pain and discharge. Respiratory: Negative for chest tightness. Cardiovascular: Negative for chest pain. Gastrointestinal: Negative for abdominal pain and vomiting. Endocrine: Negative for polydipsia and polyuria. Genitourinary: Negative for dysuria and frequency. Musculoskeletal: Negative for joint swelling. Skin: Negative for color change. Allergic/Immunologic: Negative for immunocompromised state. Neurological: Negative for numbness and headaches. Psychiatric/Behavioral: Negative for behavioral problems and confusion. All other systems reviewed and are negative. Past Medical, Surgical, Family, and Social History: Past Medical History: Past Medical History: Diagnosis Date Acute respiratory failure (HCC) Due to MRSA pneumonia 04/2016; Allergic rhinitis Anoxic brain damage (HCC) Aspiration, chronic pulmonary Bowel and bladder incontinence Cerebral palsy ([facility]) Chronic osteomyelitis of pelvic region, right ([facility]) 2019 required right ischial debridement, followed by Dr. Noland of plastics Chronic respiratory failure with hypoxia ([facility]) 3 L NC, followed by Dr. Stephy Cisse and Dr. Amalia Terry Constipation Epilepsy ([facility]) followed at [facility] neurology clinic GERD (gastroesophageal reflux disease) occasional vomiting with gagging MRSA (methicillin resistant Staphylococcus aureus) 04/2016 Bilateral lungs Muscle spasticity medically refractory and has baclofen pump since 1999, followed at [facility] neuro baclofen pump clinic Nonverbal Answers yes with very long blinks per adoptive parent PEG (percutaneous endoscopic gastrostomy) status ([facility]) Presence of intrathecal baclofen pump [address] 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 Urine retention occasional occurrence that requires straight cath periodically Wheelchair bound Past medical history reviewed. Past Surgical History: Past Surgical History: Procedure Laterality Date BACK SURGERY 1999 Marrufo rods placed BACLOFEN PUMP IMPLANTATION X 3- last 2009 CHOLECYSTECTOMY INCISION AND DRAINAGE LOWER EXTREMITY Right 12/02/2018 Procedure: INCISION AND DRAINAGE WITH BONE BIOPSY OF RIGHT ISCHIUM; Surgeon: Rad Luque MD; Location: [facility] Main OR; Service: Orthopedic LAMINECTOMY DECOMP THORACIC MULTI LEVEL N/A 07/27/2016 Procedure: T1-2 THORACIC FUSION REVISION ; Surgeon: Kb Ramsey MD; Location: [facility] Main OR; Service: PEG TUBE INSERTION REVISION PAIN PUMP N/A 07/27/2016 Procedure: BACLOFEN PUMP REPLACEMENT ; Surgeon: Kb Ramsey MD; Location: [facility] Main OR; Service: SALIVARY GLAND SURGERY Past surgical history reviewed. Family History: Family History Adopted: Yes Family history unknown: Yes Family history reviewed. Social History: Social History Socioeconomic History Marital status: Single Spouse name: Not on file Number of children: Not on file Years of education: Not on file Highest education level: Not on file Occupational History Not on file Social Needs Financial resource strain: Not on file Food insecurity Worry: Not on file Inability: Not on file Transportation needs Medical: Not on file Non-medical: Not on file Tobacco Use Smoking status: Never Smoker Smokeless tobacco: Never Used Substance and Sexual Activity Alcohol use: No Drug use: No Sexual activity: Not on file Lifestyle Physical activity Days per week: Not on file Minutes per session: Not on file Stress: Not on file Relationships Social connections Talks on phone: Not on file Gets together: Not on file Attends protestant service: Not on file Active member of club or organization: Not on file Attends meetings of clubs or organizations: Not on file Relationship status: Not on file Other Topics Concern Not on file Social History Narrative Not on file Social history reviewed. Allergies and Medications: Allergies: Allergies Allergen Reactions Levaquin [Levofloxacin] Rash, flushing with RUE arm swelling. Augmentin [Amoxicillin-Pot Clavulanate] Rash Per mother- tolerates Zosyn, unable to tolerate amoxil (blisters upper extremity) Lactose Intolerance [Lactase] Penicillins Other (See Comments) Blisters- amoxil Ragweed Unknown Medications: Discharge Medication List as of 11/27/2020 3:40 PM CONTINUE these medications which have NOT CHANGED Details acetaminophen (TYLENOL) 325 MG tablet 650 mg by G-tube route every 6 (six) hours as needed for pain ., Historical Med cannabidioL (Epidiolex) 100 mg/mL Soln Take 2 mL by mouth 2 (two) times a day ., Starting Wed10/02/2020, Normal cholecalciferol, vitamin D3, (VITAMIN D3) 2,000 unit cap 2,000 Units by G-tube route every morning., Historical Med diazePAM (VALIUM) 2 MG tablet 3 (three) tablets (6 mg total) by Per G Tube route daily as needed For seizures ., Starting Wed10/02/2020, Normal doxycycline hyclate (VIBRAMYCIN) 100 MG capsule Take 100 mg by mouth 2 (two) times a day ., Historical Med fluticasone propionate (FLONASE) 50 mcg/actuation nasal spray Instill 1 (one) spray into each nostril daily as needed for rhinitis ., Starting [facility] 01/11/2020, Normal ipratropium (ATROVENT) 0.02 % nebulizer solution Do one breathing treatment twice daily. If she is congested or wheezing or labored, she can do this 4 times daily. ., Normal !! lamoTRIgine (LAMICTAL) 100 MG tablet 1 (one) tablet (100 mg total) by Per G Tube route 2 (two) times a day Take with 150mg tablet ., Starting Wed10/02/2020, Normal !! lamoTRIgine (LAMICTAL) 150 MG tablet 1 (one) tablet (150 mg total) by Per G Tube route 2 (two) times a day Take with 100mg tablet ., Starting Wed10/02/2020, Normal levETIRAcetam (KEPPRA) 100 mg/mL solution Take 10 mL (1,000 mg total) by mouth 2 (two) times a day ., Starting Wed10/02/2020, Normal loratadine (CLARITIN) 10 mg tablet 10 mg by G-tube route every morning ., Historical Med montelukast (SINGULAIR) 10 mg tablet 10 mg by Per G Tube route daily ., Starting 12/16/2019, Historical Med multivitamin/iron/folic acid (CENTRUM ORAL) 10 mL by G-tube route every morning ., Historical Med omeprazole (PRILOSEC) 40 MG capsule 40 mg by G-tube route every morning ., Historical Med polyethylene glycol (MIRALAX) 17 gram powder 17 g by Per G Tube route every morning ., Historical Med guaiFENesin (ROBITUSSIN) 100 mg/5 mL syrup 200 mg by G-tube route 3 (three) times a day as needed for cough ., Historical Med medroxyPROGESTERone (DEPO-PROVERA) 150 mg/mL Syrg INJECT 1ML INTRAMUSCULARLY EVERY 10 TO 13 WEEKS, Historical Med metoprolol succinate (TOPROL-XL) 25 MG 24 hr tablet 12.5 mg daily G-Tube ., Historical Med promethazine (PHENERGAN) 12.5 MG suppository Insert 12.5 mg into the rectum every 6 (six) hours as needed for nausea., Historical Med !! - Potential duplicate medications found. Please discuss with provider. Physical Exam: Vital Signs BP 108/75 (BP Location: Left arm, Patient Position: Lying) Pulse (!) 102 Temp 99.1 F (37.3 C) (Oral) Resp 18 Ht 4' 5 Wt 38.6 kg (85 lb) SpO2 99% BMI 21.28 kg/m Physical Exam Vitals signs and nursing note reviewed. Constitutional: General: She is not in acute distress. Appearance: She is well-developed. Comments: Patient is short in stature and has left torticollis. HENT: Head: Normocephalic and atraumatic. Right Ear: External ear normal. Left Ear: External ear normal. Eyes: Conjunctiva/sclera: Conjunctivae normal. Pupils: Pupils are equal, round, and reactive to light. Neck: Musculoskeletal: Normal range of motion and neck supple. Cardiovascular: Rate and Rhythm: Normal rate and regular rhythm. Heart sounds: Normal heart sounds. Pulmonary: Effort: Pulmonary effort is normal. No respiratory distress. Breath sounds: Normal breath sounds. No wheezing or rales. Abdominal: Palpations: Abdomen is soft. Tenderness: There is no abdominal tenderness. Musculoskeletal: Normal range of motion. Skin: General: Skin is warm and dry. Neurological: Mental Status: She is alert. Mental status is at baseline. Cranial Nerves: No cranial nerve deficit. Psychiatric: Behavior: Behavior normal. Vital Signs During ED Visit (as charted by nursing) Patient Vitals for the past 24 hrs: BP Temp Temp src Pulse Resp SpO2 Height Weight 11/27/20 1701 108/75 (!) 102 18 99 % 11/27/20 1700 108/75 (!) 105 (!) 21 11/27/20 1600 108/85 (!) 109 18 98 % 11/27/20 1551 109/73 (!) 111 17 99 % 11/27/20 1400 105/78 (!) 120 17 100 % 11/27/20 1300 107/67 (!) 121 (!) 19 100 % 11/27/20 1200 117/68 (!) 114 (!) 28 100 % 11/27/20 1145 104/76 (!) 117 (!) 20 100 % 11/27/20 1053 104/63 99.1 F (37.3 C) Oral (!) 122 16 95 % 4' 5 38.6 kg (85 lb) This patient was examined during the COVID 19 pandemic and during declared medical time of disaster per the Governor of the [facility] and Center for disease control. Patient was wearing surgical mask during the entirety of the patient encounter. I was wearing appropriate PPE which included at minimum, surgical mask and eye protection during the evaluation of patient at bedside. PROCEDURES (if any, during ED visit): Procedures Rene Dunaway MD 11/27/20 1924 Spoke with Leo with the PICC team. He will come down to assess pt for PICC placement. Per mother pt is seeing a plastic surgeon in [facility] who will do procedure for gluteal fold wound. Mother sts pt was found to have an infection and needs to be cleared up prior to procedure. Mother has order for midline placedment and first dose of ATB. Mother sts she can do everything else at home as she is the primary caregiver. Mother sts she does not take pt to [facility] due to pt being traumatized mother chose to bring pt to [facility]. This RN called PICC team and left message for them to call and check availability. Awaiting return call. Dr Dunaway notified and is aware. Pt wheeled to triage with mask on, stated has a wound on R gluteal fold, infected, needs antibiotics and a midline. documented in this encounter Richar Brandt MD - 11/29/2018 12:01 AM Shannan Sosa MD - 09/20/2019 6:49 AM Beronica Barry DO - 10/21/2019 7:57 PM Mikala Pitts MD - 02/12/2020 4:53 PM EDT H&P Notes (unrecognized sect ion and content) Resident History and Physical Patient Name: Claudine Joseph : 1990 Admit Date: [id number] Assessment and Plan Patient is a 28 y.o. female with a past medical history significant for anoxic brain injury, cerebral palsy s/p baclofen pump, seizure, restrictive lung disease with chronic respiratory failure on 4L, Aspiration, PEG tube, incontinence, chronic sacral ulcer, GERD hypernatremia who presented to [facility] 11/28/2018 with complaints of fever, decreased oxygen saturation found to have sepsis. 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, requires straight cath intermittently several times a week and is incontinent -s/p multiple baclofen pumps last in 2015, recently filled for intrathecal administration -continue home medications and bowel regimen -tube feeds, consult fancy stitcher -f/u neuro 03/17/19 Epilepsy -per history, with CP and prior anoxic brain injury, occur few times weekly -on home lamictal 250 mg BID and keppra 1000 mg BID -prn valium 6 mg -seizure precautions Chronic respiratory failure with hypercapnia -in setting restrictive lung disease, chronically on 3.5-4 L O2 NC -currently as baseline 4 L, VBG appears compensated chronic respiratory acidosis, no infiltrates seen on CT though difficult exam -continue 4L/min, ipratropium BID, titrate O2 >90% Chronic right buttock ulcer -per history -appears to probe several cm, no evidence of purulence discharge, mild bleeding -recent use of wound vac around 3 weeks ago, but 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 After discussion, the patient was determined to be Full Code After discussion with family , medication reconciliation was completed on 11/29/18. Disposition: tbd pending medical clearance All care and management plans will be discussed with the attending on service. Richar Brandt MD 12:01 AM 11/29/18 Pager: [phone] Chief Complaint Fever, fussy History of Present Illness Claudine Joseph is a 28 y.o. female with a past medical history significant for anoxic brain injury, cerebral palsy s/p baclofen pump, seizure, restrictive lung disease with chronic respiratory failure on 4L, Aspiration, PEG tube, incontinence, chronic sacral ulcer, GERD who presented to [facility] 11/28/2018 with complaints of fever, decreased oxygen saturation found to have sepsis. Mom who is assistant to the director caregiver noticed patient was fussy last two days. She had a cough 11/28 AM as well as elevated HR and decreased SpO2 per her home monitoring equipment. Temperature 100.9, tachycardic to 138, RR up to 25 on baseline O2 at 4L/minute. Lactic acid 2.9-->1.3. WBC 9.5. UA significant for proteinuria, small leukocyte esterase, and many bacteria. Blood cultures x2- growth to date. Sodium 155, bicarb 38, vbg apperas compensated. glucose 178. Influenza negative. CT c/a/p no acute findings and CXR non acute. Has had a picc line in since April, not being used. Also has had a chronic right buttock wound, worsened gradually. Had a wound vac recently that was removed 1 week ago, but no recent antibiotics. Baseline is non verbal and wheelchair/bed bound. Has peg tube and does pureed food every evening, ensure, and TF/fluids overnight. Recently refilled baclofen pump on 11/20 in neuro office. Review of Systems Review of Systems Unable to perform ROS: Patient nonverbal Past Medical/Surgical/Social/Family History and Allergies I have independently reviewed and updated the patient's past medical, surgical, social, family history and allergies below: Past Medical History: Diagnosis Date Acute respiratory failure (HCC) Due to MRSA pneumonia 04/2016; Allergic rhinitis Anoxic brain damage (HCC) Aspiration, chronic pulmonary Bowel and bladder incontinence Cerebral palsy (HCC) Chronic respiratory failure with hypoxia (HCC) Constipation GERD (gastroesophageal reflux disease) occasional vomiting with gagging MRSA (methicillin resistant Staphylococcus aureus) 04/2016 Bilateral lungs Nonverbal Answers yes with very long blinks per adoptive parent Postoperative retention of urine occasional occurrence that requires straight cath periodically Restrictive lung disease due to kyphoscoliosis Seizures (HCC) Daily occurrence-Neuro- adoptive mother can't remember name of urologist Past Surgical History: Procedure Laterality Date BACK SURGERY 1999 Marrufo rods placed BACLOFEN PUMP IMPLANTATION X 3- last 2009 CHOLECYSTECTOMY LAMINECTOMY DECOMP THORACIC MULTI LEVEL N/A 07/27/2016 Procedure: T1-2 THORACIC FUSION REVISION ; Surgeon: Kb Ramsey MD; Location: [facility] Main OR; Service: PEG TUBE INSERTION REVISION PAIN PUMP N/A 07/27/2016 Procedure: BACLOFEN PUMP REPLACEMENT ; Surgeon: Kb Ramsey MD; Location: [facility] Main OR; Service: SALIVARY GLAND SURGERY Family History Adopted: Yes Family history unknown: Yes Social History Socioeconomic History Marital status: Single Spouse name: Not on file Number of children: Not on file Years of education: Not on file Highest education level: Not on file Social Needs Financial resource strain: Not on file Food insecurity - worry: Not on file Food insecurity - inability: Not on file Transportation needs - medical: Not on file Transportation needs - non-medical: Not on file Occupational History Not on file Tobacco Use Smoking status: Never Smoker Smokeless tobacco: Never Used Substance and Sexual Activity Alcohol use: No Drug use: No Sexual activity: Not on file Other Topics Concern Not on file Social History Narrative Not on file Allergies: Levaquin [levofloxacin]; Lactose intolerance [lactase]; Penicillins; Ragweed; and Augmentin [amoxicillin-pot clavulanate] Physical Exam Vital Signs: BP 106/64 (BP Location: Left arm, Patient Position: Sitting) Pulse (!) 113 Temp 99.5 F (37.5 C) (Oral) Resp 18 Ht 4' 6 Wt 40.8 kg (90 lb) SpO2 98% BMI 21.70 kg/m Physical Exam Constitutional: No distress. HENT: Head: Normocephalic and atraumatic. Cardiovascular: Normal rate and regular rhythm. No murmur heard. Pulmonary/Chest: Effort normal and breath sounds normal. No respiratory distress. She has no wheezes. Abdominal: Soft. Bowel sounds are normal. She exhibits no distension. There is no tenderness. Musculoskeletal: Right PICC line in RUE Neurological: She is alert. Non communicative but responding to stimuli, spastic LE. Skin: Skin is warm and dry. Right buttock pressure ulcer that probes at least 2 cm, with mild bleeding, no purulence or smell Additional Data - Labs/ Radiology/Medical Tests I have independently reviewed the following: Active Medications, Radiology, Microbiology, Labs and Notes Recent Labs 11/28/18192111/28/181928 NA 155* 161* 161* K 3.6 3.6 3.6 CL 104 105 105 BICARB 38* -- BUN 16 -- CREATININE 0.37* -- GLUCOSE 178* 175* 175* Recent Labs 11/28/18192111/28/181928 WBC 9.45 -- HGB 12.9 13.3 13.3 HCT 43.5 40.8 40.8 PLT 279 -- Lab Results Component Value Date ALT 22 11/28/2018 AST 20 11/28/2018 ALKPHOS 147 (H) 11/28/2018 BILITOT <0.2 11/28/2018 ALBUMIN 4.2 11/28/2018 CT Chest Abdomen Pelvis With IV Contrast Only Preliminary Result No evidence for acute abnormality. Extensive thoracolumbar and sacral fusion is seen. Prior cholecystectomy. ANDRADE/rlc Workstation ID: [id number] XR Chest 1 View Final Result Severely limited radiograph due to scoliotic curvature and hardware bridging the entire thoracolumbar spine. Mild diffuse haziness of the lungs may be positional. PD/aw Workstation ID: [id number] EKG not available for review.. Home Medications Claudine Joseph Home Medication Instructions Prior to Surgery SADIE:[id number] Printed on:11/29/18 0001 Medication Information Take last dose on Take the morning of surgery Comment(s) acetaminophen (TYLENOL) 325 MG tablet 650 mg by G-tube route every 6 (six) hours as needed for pain . baclofen (LIORESAL) 20 MG tablet Take 1 tablet as needed for baclofen withdrawal. baclofen 40,000 mcg/20mL (2,000 mcg/mL) Syrg 670 mcg by Intrathecal route daily. cholecalciferol, vitamin D3, (VITAMIN D3) 2,000 unit cap 2,000 Units by G-tube route every morning. diazePAM (VALIUM) 2 MG tablet Take 3 tablets by mouth once daily as needed for seizure activity . fluticasone (FLONASE) 50 mcg/actuation nasal spray 2 sprays into each nostril daily as needed for rhinitis. guaiFENesin (ROBITUSSIN) 100 mg/5 mL syrup 200 mg by G-tube route 3 (three) times a day as needed for cough . ipratropium (ATROVENT) 0.02 % nebulizer solution Do one breathing treatment twice daily. If she is congested or wheezing or labored, she can do this 4 times daily.. lamoTRIgine (LAMICTAL) 100 MG tablet Take 1 (one) tablet (100 mg total) by mouth 2 (two) times a day . lamoTRIgine (LAMICTAL) 150 MG tablet Take 1 (one) tablet (150 mg total) by mouth 2 (two) times a day Take with the Lamictal 100 mg tablets bid for a total of 250 mg bid. . levETIRAcetam (KEPPRA) 100 mg/mL solution Take 10 mL (1,000 mg total) by mouth 2 (two) times a day . loratadine (CLARITIN) 10 mg tablet 10 mg by G-tube route every morning . medroxyPROGESTERone (DEPO-PROVERA) 150 mg/mL injection Inject 150 mg into the shoulder, thigh, or buttocks every 3 (three) months. metoprolol succinate (TOPROL-XL) 25 MG 24 hr tablet Take 12.5 mg by mouth daily. multivitamin (THERAGRAN) per tablet 1 tablet by G-tube route every morning. omeprazole (PRILOSEC) 20 MG capsule 20 mg by G-tube route every morning . polyethylene glycol (MIRALAX) 17 gram powder Take 17 g by mouth every morning . promethazine (PHENERGAN) 12.5 MG suppository Insert 12.5 mg into the rectum every 6 (six) hours as needed for nausea. in this encounter Shannan Viera MD [facility] Hospitalists History and Physical Patient Name:Claudine Joseph :1990 Admit Date: Physicians: Colette Goode MD (Family); No ref. provider found (Referring) Perpetual Assessment: Claudine Joseph is a 29 y.o. female who presented from home on 09/19/2019 with cough and decrease po2 reading at home pulse ox , admitted for sepsis secondary to pneumonia. ASSESSMENT AND PLAN SEPSIS ; - secondary to pneumonia (likely aspiration) and UTI -wbc, 14.83 , with temp 102 , tachycardia And Soft BP CXR showed ; Abnormal areas of increased haziness throughout both lungs -Got azithromycin and ceftriaxone in the ED - has history of MRSA pneumonia in past 2016 - Empirically treating her with vancomycin and cefepime.( Patient is allergic to penicillin) -Giving her bolus of 1 L NS and starting her on IVF NS -Ordering blood culture, sputum culture, respiratory viral PCR, checking for MRSA PCR and strep pneumo and legionella antigen. Pneumonia -Empirically treating her with vancomycin and cefepime. -Ordering blood culture, sputum culture, respiratory viral PCR, checking for MRSA PCR and strep pneumo and legionella antigen. - Xopenex For breathing treatment as she is tachycardiac Acute on chronic hypoxic/hypercapnic respiratory failure -likely secondary to pneumonia - continue vancomycin and cefepime, Xopenex , oxygen -ordering ABG Leucocytosis Likely secondary to sepsis secondary to pneumonia -continue empiric antibiotic Hypotension - secondary to sepsis - giving 1000 ml x 1 bolus of NS and putting her on ivf NS - continue to monitor BP Abnormal UA -On Cefipime - urine culture pending Tachycardia Patient has history of tachycardia per mother and is on Beta too at home .But infection also playing a role -Give bb when bp is stable Intractable generalized epilepsy - Daily, described as BUE contracture and facial twitching - Cont , keppra and lamictal Spastic Cerebral palsy - Non-verbal, restricted to wheelchair at baseline follows with Dr Murphy for medically refractroy, severe spasticity. Has Baclofen pump in place - Tube feeds Gerd; Continue ppi Code Status: full DVT Prophylaxis Lovenox Medication Reconciliation Reviewed Comments/Disposition: HISTORY CC: Cough and Drop in Home Pulse ox HPI: Claudine Joseph is a 29 y.o. female With PMH of Cerebral palsy who is wheel chair bound, recurrent pneumonia , history of MRSA pneumonia , history of R ischial decubitus ulcer follows plastic surgery, was brought in by her mother for cough and drop in her home po2 from 98 to 94 . She told me that patient had vomiting episode 1 day ago and before her mom can do suction she aspirated it . After that day , she started having cough , and her sats went down on from 98 to 94. No fever reported . No sick contact or recent travel . Her mom gave her breathing treatment but it did not help her so she brought her to ED, Off note she uses 5-6 L of oxygen at home and also follow supervisor burling and joining as outpatient. In ED her vitals Showed temp 98, HR 109, rr 12/min , PO2 87 which was back to 98-99 on 4 l oxygen. CXR done which was suspicious for pneumonia and also UA was abnormal . She got azithromycin and rocephin in ED and was admitted under [facility] service. ROS: > > > > > > > > > > The following system(s) were reviewed. Pertinent positive and negative findings are noted in the HPI. [x] Const [x] Eyes [x] ENT [x] Resp [x] CV [x] GI [x] [x] Neuro [x] Musc [x] Skin [x] Psych [x] Endo [x] Allergy [x] Heme/Lymph PMH/PSH/SH/FH: Past Medical History: Diagnosis Date Acute respiratory failure (HCC) Due to MRSA pneumonia 04/2016; Allergic rhinitis Anoxic brain damage (HCC) Aspiration, chronic pulmonary Bowel and bladder incontinence Cerebral palsy (HCC) Chronic respiratory failure with hypoxia (HCC) Constipation GERD (gastroesophageal reflux disease) occasional vomiting with gagging MRSA (methicillin resistant Staphylococcus aureus) 04/2016 Bilateral lungs Nonverbal Answers yes with very long blinks per adoptive parent Postoperative retention of urine occasional occurrence that requires straight cath periodically Restrictive lung disease due to kyphoscoliosis Seizures (HCC) Daily occurrence-Neuro- adoptive mother can't remember name of urologist Past Surgical History: Procedure Laterality Date BACK SURGERY 1999 Marrufo rods placed BACLOFEN PUMP IMPLANTATION X 3- last 2009 CHOLECYSTECTOMY INCISION AND DRAINAGE LOWER EXTREMITY Right 12/02/2018 Procedure: INCISION AND DRAINAGE WITH BONE BIOPSY OF RIGHT ISCHIUM; Surgeon: Rad Luque MD; Location: [facility] Main OR; Service: Orthopedic LAMINECTOMY DECOMP THORACIC MULTI LEVEL N/A 07/27/2016 Procedure: T1-2 THORACIC FUSION REVISION ; Surgeon: Kb Ramsey MD; Location: [facility] Main OR; Service: PEG TUBE INSERTION REVISION PAIN PUMP N/A 07/27/2016 Procedure: BACLOFEN PUMP REPLACEMENT ; Surgeon: Kb Ramsey MD; Location: [facility] Main OR; Service: SALIVARY GLAND SURGERY Family History Adopted: Yes Family history unknown: Yes Social History Socioeconomic History Marital status: Single Spouse name: Not on file Number of children: Not on file Years of education: Not on file Highest education level: Not on file Occupational History Not on file Social Needs Financial resource strain: Not on file Food insecurity Worry: Not on file Inability: Not on file Transportation needs Medical: Not on file Non-medical: Not on file Tobacco Use Smoking status: Never Smoker Smokeless tobacco: Never Used Substance and Sexual Activity Alcohol use: No Drug use: No Sexual activity: Not on file Lifestyle Physical activity Days per week: Not on file Minutes per session: Not on file Stress: Not on file Relationships Social connections Talks on phone: Not on file Gets together: Not on file Attends protestant service: Not on file Active member of club or organization: Not on file Attends meetings of clubs or organizations: Not on file Relationship status: Not on file Other Topics Concern Not on file Social History Narrative Not on file Living Arrangements: Parent Support Systems: Parent Allergy Information: I have reviewed the patient's allergies. Levaquin [levofloxacin]; Augmentin [amoxicillin-pot clavulanate]; Lactose intolerance [lactase]; Penicillins; and Ragweed Home Medications: No outpatient medications have been marked as taking for the 09/19/19 encounter (Hospital Encounter). PHYSICAL EXAMINATION > > > > > > > > Vital Signs: Temp: [98 F (36.7 C)-102 F (38.9 C)] 102 F (38.9 C) Heart Rate: [109-126] 126 Resp: [12-18] 18 BP: (98-109)/(54-67) 100/54 GENERAL: Non verbal , not in any acute distress EYES: Conjunctiva and sclera clear, EOMI, PERRL ENT: Hearing intact. Pharynx clear. NECK: No adenopathy or thyromegaly. CV: RRR, no murmur. No JVD. No edema. RESP: Clear, no rales, rhonchi, wheezes or increase in respiratory effort, no use of accessory muscles. GI: Non-distended, +BS, soft, non-tender. No guarding, masses or rebound MUSC: Normal ROM without deformity. SKIN: Warm and dry. No rashes. NEURO: Alert, Ox3. Grossly normal motor and sensory exam. No focal deficits. PSYCH: Mood and affect are appropriate. Cooperative. Laboratory and Additional Data Acquired or Reviewed: [x] Laboratory [x] Transcriptions [x] Radiology [] Microbiology [x] Cardiology [] Outside Records [x] Medications [x] Family Time Spent: documented in this encounter Beronica Torres, DO [facility] Hospital[facility] History and Physical Patient Name:Claudine Joseph :1990 Admit Date: Physicians: Colette Goode MD (Family); No ref. provider found (Referring) Perpetual Assessment: Claudine Joseph is a 29 y.o. female who presented from home on 10/21/2019 with increased agitation and fevers. ASSESSMENT AND PLAN Sepsis - with agitation, fevers, leukocytosis on admission; tachycardia - suspect due to UTI with chronic sage - noted pt hospitalized about one month ago for sepsis with pseudomonas pneumonia and UTI; pt also with history of chronic osteomyelitis of right ischial tuberosity; s/p debridement in 11/2018 - on exam, pt's decubitus ulcer does not appear acutely infected; no clear evidence pneumonia - pt's mother notes increased cloudiness to urine and sediment; UA abnormal though would expect with chronic sage catheter - BP stable; no evidence shock - lactic acidosis on admission resolved with IVF's - pt received 30 ml/kg bolus and broad spectrum antibiotics in ED; pt received IV vanc and cefepime in ED - blood cx's NGTD, urine culture pending, no clear infiltrate on CXR - will cont IV cefepime for now; low concern for baclofen withdrawal though continue to monitor and consider neurology consult if no improvement with antibiotics. - holding on CT imaging abdomen as no abd tenderness on exam; will ask nursing to exchange sage catheter - cont IVF's. Complicated UTI with indwelling sage catheter - as noted above; pt's mother reports she recently changed sage catheter last week - pt has indwelling sage due to decubitus ulcer - cont as above; f/u urine culture. Hypernatremia - due to hypovolemia from infection above; limited free water intake with TF's - noted pt with hypernatremia in past - sodium 152 on admission and down to 150 with 0.9% NS IVF's - will cont 0.9% NS for now and repeat chem 7 in am; may need to switch to 0.45% saline in am if no further improvement; consider free water as well to TF's; monitor. 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 Murphy of neurology and has baclofen pump; recently refilled on 10/19 - pt's mother noted increased spasticity at home following refill and agitation with fevers; pt's mother called neurology clinic and it was not felt pt was in baclofen withdrawal; pt's mother gave extra dose baclofen at home anyway without improvement - now pt's mother reports increased spasticity resolved back to baseline - suspect infection above rather than baclofen withdrawal - cont as above though consider neurology consult if recurrent symptoms. Chronic respiratory failure - due to restrictive lung disease due to scoliosis; pt wears about 3 L at baseline - no acute issues - monitor; cont home supplemental oxygen Seizure disorder - pt's mother reports breakthrough seizures about 2-3 times as week - cont home lamictal, keppra - cont valium prn for breakthrough seizure Decubitus ulcer - due to immobility from quadriplegia and CP - pt with chronic osteomyelitis and debrided in 11/2018 - lower suspicion for acute infection - consult ET nurse Dysphagia - in context of above - pt receives continuous TF's at home via PEG tube - consult nutrition HTN - BP stable - cont home toprol XL Code Status: full DVT Prophylaxis Lovenox Medication Reconciliation Reviewed Comments/Disposition: Discussed with pt's mother at bedside; pt's mother notes she will need advance notice prior to discharge to make sure house is ready for pt's return. HISTORY CC: Fevers, agitation HPI: Claudine Joseph is a 29 y.o. female with pmhx of spastic cerebral palsy, quadriplegia, chronic respiratory failure, seizures who presents with 2 days of agitation and fevers. The pt is non verbal at baseline and history is obtained per patient's mother at bedside. The pt's mother states the pt had baclofen pump refilled on , 10/19. She states the pt then started to become more agitated on Wednesday and seemed to be more spastic. She was initially concerned for baclofen withdrawal and called the neurology clinic. The neurology clinic did not feel pt was in baclofen withdrawal and was concerned for something else going on per pt's mother. Pt's mother did give the pt extra dose of prn baclofen at home to see if this helped with spasticity, though she did not note any improvement. She states Wednesday night and Wednesday am she noted low grade fevers and also noted pt had increased sediment in sage catheter and cloudy urine compared to normal. Pt was brought to ED. Per pt's mother, pt will blink eyes if she is trying to answer yes to question and look off if her answer is no. When asked about abdominal pain, the pt seems to indicate she does not have abdominal pain on exam. Her mother does not feel she is having any abdominal pain per her interactions with patient. It is noted pt was recently hospitalized 09/19 to 09/27 for sepsis due to UTI and pneumonia. She was treated for 7 days with IV vancomycin and cefepime. Pt has sage catheter in place and chronic decubitus wound ulcer. The pt's mother feels wound ulcer is improving. Pt's mother also feels pt no longer has increased spasticity. ROS: > > > > > > > > > > The following system(s) were reviewed. Pertinent positive and negative findings are noted in the HPI. [] Const [] Eyes [] ENT [] Resp [] CV [] GI [x] [] Neuro [] Musc [] Skin [] Psych [] Endo [] Allergy [] Heme/Lymph PMH/PSH/SH/FH: Past Medical History: Diagnosis Date Acute respiratory failure (HCC) Due to MRSA pneumonia 04/2016; Allergic rhinitis Anoxic brain damage ([facility]) Aspiration, chronic pulmonary Bowel and bladder incontinence Cerebral palsy ([facility]) Chronic osteomyelitis of pelvic region, right ([facility]) 2019 required right ischial debridement, followed by Dr. Noland of plastics Chronic respiratory failure with hypoxia ([facility]) 3 L NC, followed by Dr. Stephy Cisse and Dr. Amalia Terry Constipation Epilepsy ([facility]) followed at [facility] neurology clinic GERD (gastroesophageal reflux disease) occasional vomiting with gagging MRSA (methicillin resistant Staphylococcus aureus) 04/2016 Bilateral lungs Muscle spasticity medically refractory and has baclofen pump since 1999, followed at [facility] neuro baclofen pump clinic Nonverbal Answers yes with very long blinks per adoptive parent PEG (percutaneous endoscopic gastrostomy) status ([facility]) Presence of intrathecal baclofen pump [address] 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 Urine retention occasional occurrence that requires straight cath periodically Wheelchair bound Past Surgical History: Procedure Laterality Date BACK SURGERY 1999 Marrufo rods placed BACLOFEN PUMP IMPLANTATION X 3- last 2009 CHOLECYSTECTOMY INCISION AND DRAINAGE LOWER EXTREMITY Right 12/02/2018 Procedure: INCISION AND DRAINAGE WITH BONE BIOPSY OF RIGHT ISCHIUM; Surgeon: Rad Luque MD; Location: [facility] Main OR; Service: Orthopedic LAMINECTOMY DECOMP THORACIC MULTI LEVEL N/A 07/27/2016 Procedure: T1-2 THORACIC FUSION REVISION ; Surgeon: Kb Ramsey MD; Location: [facility] Main OR; Service: PEG TUBE INSERTION REVISION PAIN PUMP N/A 07/27/2016 Procedure: BACLOFEN PUMP REPLACEMENT ; Surgeon: Kb Ramsey MD; Location: [facility] OR; Service: SALIVARY GLAND SURGERY Family History Adopted: Yes Family history unknown: Yes Social History Socioeconomic History Marital status: Single Spouse name: Not on file Number of children: Not on file Years of education: Not on file Highest education level: Not on file Occupational History Not on file Social Needs Financial resource strain: Not on file Food insecurity Worry: Not on file Inability: Not on file Transportation needs Medical: Not on file Non-medical: Not on file Tobacco Use Smoking status: Never Smoker Smokeless tobacco: Never Used Substance and Sexual Activity Alcohol use: No Drug use: No Sexual activity: Not on file Lifestyle Physical activity Days per week: Not on file Minutes per session: Not on file Stress: Not on file Relationships Social connections Talks on phone: Not on file Gets together: Not on file Attends protestant service: Not on file Active member of club or organization: Not on file Attends meetings of clubs or organizations: Not on file Relationship status: Not on file Other Topics Concern Not on file Social History Narrative Not on file Allergy Information: I have reviewed the patient's allergies. Levaquin [levofloxacin]; Augmentin [amoxicillin-pot clavulanate]; Lactose intolerance [lactase]; Penicillins; and Ragweed Home Medications: Outpatient Medications Marked as Taking for the 10/21/19 encounter (Hospital Encounter) Medication Sig acetaminophen (TYLENOL) 325 MG tablet 650 mg by G-tube route every 6 (six) hours as needed for pain . baclofen (LIORESAL) 20 MG tablet Take 1 tablet as needed for baclofen withdrawal. baclofen 40,000 mcg/20mL (2,000 mcg/mL) Syrg 649 mcg by Intrathecal route daily . cannabidiol, CBD, extract (Epidiolex) 100 mg/mL Soln Take 3.2 mL by mouth 2 (two) times a day . cholecalciferol, vitamin D3, (VITAMIN D3) 2,000 unit cap 2,000 Units by G-tube route every morning. diazePAM (VALIUM) 2 MG tablet Take 3 tablets by mouth once daily as needed for seizure rescue . fluticasone (FLONASE) 50 mcg/actuation nasal spray Instill 1 spray into each nostril daily as needed for rhinitis . guaiFENesin (ROBITUSSIN) 100 mg/5 mL syrup 200 mg by G-tube route 3 (three) times a day as needed for cough . ipratropium (ATROVENT) 0.02 % nebulizer solution Do one breathing treatment twice daily. If she is congested or wheezing or labored, she can do this 4 times daily.. lamoTRIgine (LAMICTAL) 100 MG tablet Take 1 (one) tablet (100 mg total) by mouth 2 (two) times a day . lamoTRIgine (LAMICTAL) 150 MG tablet Take 1 (one) tablet (150 mg total) by mouth 2 (two) times a day Take with the Lamictal 100 mg tablets bid for a total of 250 mg bid. . levETIRAcetam (KEPPRA) 100 mg/mL solution Take 10 mL (1,000 mg total) by mouth 2 (two) times a day . lidocaine-prilocaine (EMLA) cream Apply topically as needed . loratadine (CLARITIN) 10 mg tablet 10 mg by G-tube route every morning . medroxyPROGESTERone (DEPO-PROVERA) 150 mg/mL injection Inject 150 mg into the shoulder, thigh, or buttocks every 3 (three) months. metoprolol succinate (TOPROL-XL) 25 MG 24 hr tablet Take 12.5 mg by mouth daily. multivitamin (THERAGRAN) per tablet 1 tablet by G-tube route every morning. omeprazole (PRILOSEC) 20 MG capsule 20 mg by G-tube route every morning . polyethylene glycol (MIRALAX) 17 gram powder Take 17 g by mouth every morning . promethazine (PHENERGAN) 12.5 MG suppository Insert 12.5 mg into the rectum every 6 (six) hours as needed for nausea. PHYSICAL EXAMINATION > > > > > > > > Vital Signs: Temp: [99.7 F (37.6 C)-104.4 F (40.2 C)] 99.7 F (37.6 C) Heart Rate: [109-145] 109 Resp: [19-31] 20 BP: (105-122)/(53-77) 106/75 GENERAL: NAD EYES: Conjunctiva and sclera clear ENT: Hearing intact. Tongue appears moist. CV: RRR, no murmur. No edema. RESP: Clear, no rales, rhonchi, wheezes or increase in respiratory effort, no use of accessory muscles. GI: Mildly distended, +BS, soft, non-tender. No guarding, masses or rebound; PEG tube in place, very mild erythema around PEG tube, mild leakage, no purulence. MUSC: contractures noted in all extremities SKIN: Sacral decubitus ulcer packed with mild erythema, no purulent material. NEURO: Awake, non verbal, quadriplegia PSYCH: Calm on exam Laboratory and Additional Data Acquired or Reviewed: [x] Laboratory [x] Transcriptions [x] Radiology [] Microbiology [x] Cardiology [] Outside Records [x] Medications [] Family Time Spent: documented in this encounter [facility] History and Physical Note 02/12/20 Claudine Joseph 1990 [id number] Assessment/Plan: Claudine Joseph is a 29 y.o. female with a history of spastic cerebral palsy, quadriplegia, chronic respiratory failure on home O2, seizures, decubitus ulcers with wound vac in place, chronic sage and feeding tube who presented to [facility] 02/12/2020 with cough and fever. Found to have sepsis on admit with suspected source as aspiration pneumonia. 1. Sepsis POA: per mother pt had an episode of vomiting on 02/10/20 and likely aspirated at that time as they could not suction her quick enough. Next day started having cough, dyspnea then developed fever on 02/12/20. CXR on admit limited due to pt's position, showed small amount of bibasilar atelectasis vs early infiltrates. Temp 99 on admit, with tachypnea and tachycardia. WBC 18.3. LA 4. UA positive for infection however has chronic sage in. Suspect sepsis due to aspiration pnm however can not r/o other possible sources given her chronic sage and chronic pressure wound. Blood cx and urine cx sent on admit. Will continue with Zosyn and Vanco started in ED till culture finalized, then can deescalate to cover only aspiration PNM. Ordered Duoneb, Mucomyst and frequent suctioning per RN. 2. Chronic respiratory failure: at home on 4-4.5L O2 via NC. Stable O2 requirement on admission. 3. Spastic cerebral palsy: complicated by quadriplegia, seizures, decubitus ulcers, and dysphagia. Nonverbal at BL but able to blink and nod for yes/no questions per mother. Has intrathecal Baclofen pump (filled last week). 4. Chronic seizures: Continues to have minor breakthrough seizure despite compliance with multiple AED. No major recent seizures. Continue home Lamictal, Keppra, and CBD oil (provided by pt's mother), and prn Valium. 5. Chronic wound: due to pressure injury POA. Has wound VAC in place. Follows with wound care clinic. Consulted ET nurse. Held home suppressive doxycycline while on IV antibiotic. 6. Chronic dysphagia: PEG tube in place. Resumed feeding tube, dietitian consulted. 7. Chronic urinary retention: Has chronic Sage in place. 8. Code status: Full per discussion with mother on admit. 9. DVT Prophylaxis: subq heparin Current living situation: Home with mother Expected Disposition: same Estimated discharge date: TBD Mother Peg # [phone] Chief Complaint: Cough, fever and dyspnea History of Present Illness: Claudine Joseph is a 29 y.o. female with a history of spastic cerebral palsy, quadriplegia, chronic respiratory failure on home O2, seizures, decubitus ulcers with wound vac in place, chronic sage and feeding tube who presented to [facility] 02/12/2020 with cough and fever. Found to have sepsis on admit with suspected source as aspiration pneumonia. All history was obtained from pt's mother at bedside. Pt's mother stated that pt had an episode of vomiting on 02/10/20 and likely aspirated at that time as they could not suction her quick enough. Next day starting having cough, dyspnea then developed fever on 02/12/20. Per pt's mother pt has daily minor seizures despite her current AED regimen with no acute changes in that. She also stated that pt has maintained good urine out put with no change in urine color or odor in sage. No recent diarrhea. Pt has chronic wound with wound vac in place that has been followed by wound nurse. ROS: 10 systems were reviewed and negative, except as noted above. Past Medical, Surgical, Social, Family History: Past Medical History: Diagnosis Date Acute respiratory failure (HCC) Due to MRSA pneumonia 04/2016; Allergic rhinitis Anoxic brain damage ([facility]) Aspiration, chronic pulmonary Bowel and bladder incontinence Cerebral palsy ([facility]) Chronic osteomyelitis of pelvic region, right ([facility]) 2018 required right ischial debridement, followed by Dr. Noland of plastics Chronic respiratory failure with hypoxia ([facility]) 3 L NC, followed by Dr. Stephy Cisse and Dr. Amalia Terry Constipation Epilepsy ([facility]) followed at [facility] neurology clinic GERD (gastroesophageal reflux disease) occasional vomiting with gagging MRSA (methicillin resistant Staphylococcus aureus) 04/2016 Bilateral lungs Muscle spasticity medically refractory and has baclofen pump since 1999, followed at [facility] neuro baclofen pump clinic Nonverbal Answers yes with very long blinks per adoptive parent PEG (percutaneous endoscopic gastrostomy) status ([facility]) Presence of intrathecal baclofen pump [address] 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 Urine retention occasional occurrence that requires straight cath periodically Wheelchair bound Past Surgical History: Procedure Laterality Date BACK SURGERY 1999 Marrufo rods placed BACLOFEN PUMP IMPLANTATION X 3- last 2009 CHOLECYSTECTOMY INCISION AND DRAINAGE LOWER EXTREMITY Right 12/02/2018 Procedure: INCISION AND DRAINAGE WITH BONE BIOPSY OF RIGHT ISCHIUM; Surgeon: Rad Luque MD; Location: [facility] Main OR; Service: Orthopedic LAMINECTOMY DECOMP THORACIC MULTI LEVEL N/A 07/27/2016 Procedure: T1-2 THORACIC FUSION REVISION ; Surgeon: Kb Ramsey MD; Location: [facility] Main OR; Service: PEG TUBE INSERTION REVISION PAIN PUMP N/A 07/27/2016 Procedure: BACLOFEN PUMP REPLACEMENT ; Surgeon: Kb Ramsey MD; Location: [facility] Main OR; Service: SALIVARY GLAND SURGERY Social History Socioeconomic History Marital status: Single Spouse name: Not on file Number of children: Not on file Years of education: Not on file Highest education level: Not on file Occupational History Not on file Social Needs Financial resource strain: Not on file Food insecurity Worry: Not on file Inability: Not on file Transportation needs Medical: Not on file Non-medical: Not on file Tobacco Use Smoking status: Never Smoker Smokeless tobacco: Never Used Substance and Sexual Activity Alcohol use: No Drug use: No Sexual activity: Not on file Lifestyle Physical activity Days per week: Not on file Minutes per session: Not on file Stress: Not on file Relationships Social connections Talks on phone: Not on file Gets together: Not on file Attends protestant service: Not on file Active member of club or organization: Not on file Attends meetings of clubs or organizations: Not on file Relationship status: Not on file Other Topics Concern Not on file Social History Narrative Not on file Family History Adopted: Yes Family history unknown: Yes Home Medications: Outpatient Medications as of 02/12/2020 Medication Sig acetaminophen (TYLENOL) 325 MG tablet 650 mg by G-tube route every 6 (six) hours as needed for pain . baclofen (LIORESAL) 20 MG tablet Take 1 tablet as needed for baclofen withdrawal. baclofen 40,000 mcg/20mL (2,000 mcg/mL) Syrg 649 mcg by Intrathecal route daily . cholecalciferol, vitamin D3, (VITAMIN D3) 2,000 unit cap 2,000 Units by G-tube route every morning. diazePAM (VALIUM) 2 MG tablet Take 3 tablets by mouth once daily as needed for seizure rescue . doxycycline hyclate (VIBRAMYCIN) 100 MG capsule Take 100 mg by mouth 2 (two) times a day . Epidiolex 100 mg/mL Soln TAKE 3.2 ML BY MOUTH TWICE DAILY fluticasone propionate (FLONASE) 50 mcg/actuation nasal spray Instill 1 (one) spray into each nostril daily as needed for rhinitis . guaiFENesin (ROBITUSSIN) 100 mg/5 mL syrup 200 mg by G-tube route 3 (three) times a day as needed for cough . ipratropium (ATROVENT) 0.02 % nebulizer solution Do one breathing treatment twice daily. If she is congested or wheezing or labored, she can do this 4 times daily. . lamoTRIgine (LAMICTAL) 100 MG tablet Take 1 (one) tablet (100 mg total) by mouth 2 (two) times a day . lamoTRIgine (LAMICTAL) 150 MG tablet Take 1 (one) tablet (150 mg total) by mouth 2 (two) times a day Take with the Lamictal 100 mg tablets bid for a total of 250 mg bid. . levETIRAcetam (KEPPRA) 100 mg/mL solution Take 10 mL (1,000 mg total) by mouth 2 (two) times a day . lidocaine-prilocaine (EMLA) cream Apply topically as needed . loratadine (CLARITIN) 10 mg tablet 10 mg by G-tube route every morning . medroxyPROGESTERone (DEPO-PROVERA) 150 mg/mL injection Inject 150 mg into the shoulder, thigh, or buttocks every 3 (three) months. metoprolol succinate (TOPROL-XL) 25 MG 24 hr tablet Take 12.5 mg by mouth daily. montelukast (SINGULAIR) 10 mg tablet Take 10 mg by mouth daily . multivitamin (THERAGRAN) per tablet 1 tablet by G-tube route every morning. omeprazole (PRILOSEC) 20 MG capsule 20 mg by G-tube route every morning . polyethylene glycol (MIRALAX) 17 gram powder Take 17 g by mouth every morning . promethazine (PHENERGAN) 12.5 MG suppository Insert 12.5 mg into the rectum every 6 (six) hours as needed for nausea. whey protein isolate (Beneprotein) 6 gram-25 kcal/7 gram PwPk Use 1 packet twice a day w/ 60 mL of water. After feeding flush line with 60 mL's water. Use in combination with Replete Tube feeds . Physical Exam: BP 100/73 Pulse (!) 124 Temp 99 F (37.2 C) (Tympanic) Resp (!) 20 Ht 4' 5 Wt 37.6 kg (83 lb) SpO2 98% BMI 20.77 kg/m General: NAD Eyes: PERRL ENT: neck supple Cardiovascular: Regular rate. Respiratory: congestion with coarse BS bilaterally Gastrointestinal: Soft, non tender, PEG tube in place Genitourinary: no suprapubic tenderness, chronic sage in place Musculoskeletal: No edema Skin: warm, dry Neuro: Awake, non verbal at BL, quadriplegia. Psych: unable to assess. Labs, Imaging, and Studies reviewed: Results from last 7 days Lab Units 02/12/20 1414 WBC K/mcL 18.37* HGB g/dL 11.7* HCT % 40.2 PLT K/mcL 238 Results from last 7 days Lab Units 02/12/20 1414 SODIUM mmol/L 144 POTASSIUM mmol/L 3.6 CHLORIDE mmol/L 97* BICARB mmol/L 35* BUN mg/dL 19 CREATININE mg/dL 0.33* EGFR mL/min/1.73 m2 150 GLUCOSE mg/dL 135* Results from last 7 days Lab Units 02/12/20 1414 ALT U/L 35 AST U/L 21 ALK PHOS U/L 254* BILIRUBIN TOTAL mg/dL 0.3 documented in this encounter [facility] History and Physical Note 08/13/20 Claudine Joseph 1990 [id number] Assessment/Plan: Claudine Joseph is a 30 y.o. female with a history of spastic cerebral palsy, quadriplegia, chronic respiratory failure, seizures, decubitus ulcers with wound vac, chronic sage and PEG tube and recent admission 03/21/20 for sepsis due to UTI who presented to [facility] 08/13/2020 with for wound infection, reportedly needs a PICC line. On admission, pt without leukocytosis or lactic acidosis. BP 82/61 in ED, improved with IVF. 1. Chronic Sacral Pressure Wound: pt with known pressure injuries previously with wound vac. Wound cx as outpatient growing pseudomonas and enterobacter (per mother, no official results). Follows with Dr. Marielle Duque out of [facility] for wound care, next appt 08/16/20. Pt already has home meropenem infusion set up per Dr. Duque and presents for PICC line placement (hx of bad experience at [facility]). Wound not overly infectious appearing on admit, no leukocytosis or fevers. Unfortunately, unable to obtain records from outpatient provider. Will attempt to clarify with pt's provider. Blood Cx x 2 pending. ET consulted for evaluation. Consider ID consult if pt remains inpatient. 2. Hypotension: BP 82/61 on admit, did improve some with IVF. Per family, chronically low. Blood Cx pending as above. Monitor pressures. 3. Chronic hypoxic respiratory failure: due to prior MRSA pneumonia and subsequent restrictive lung disease. Chronically on 2L NC. 4. 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 Non verbal at baseline. Communicates some via blinking. Has intrathecal baclofen pump. 5. Chronic seizures: per history. On multiple AEDs with known minor breatkthrough seizures. Continued home Keppra, Lamictal. 6. Chronic dysphagia: Peg tube in place. TFs per fancy stitcher. 7. Chronic urinary retention: with chronic Sage. 8. DVT Prophylaxis: frequent turns. Current living situation: home Expected Disposition: home Estimated discharge date: TBD Chief Complaint: Need PICC History of Present Illness: Pt is new to me today. Records reviewed including labs, vital signs, imaging, and ED notes Pt presented to [facility] with mother, reports she needs a PICC line. Hx obtained from mother, pt is nonverbal at baseline. She reports that after thanksgiving, they both had COVID and this limited pt's care as she was quite sick. She was unable to turn the patient every hour to off load pt's wound as she herself was feeling so unwell. After this, she felt the wound got worse with increasing drainage. She was seen by Dr. Duque and requested cultures be done. This grew enterobactor and pseduomonas. Pt's mother does not indicate any change in pt's clinical status such as fevers, increased lethargy, agitation to suggest infection. Discussed possible colonization of wound and recommend our wound team vs ID evaluate. Pt's mother states she has cataract surgery tomorrow and also cares for 2 other handicapped children so they cannot stay in the hospital. Discussed case with Dr. Mendoza who is hesitant to place PICC without confirmation of records as well as negative cultures. Updated pt and family of this, they are considering leaving A. Dr. Mendoza to discuss with pt and family. ROS: Unable to perform a complete review of systems due to nonverbal status Past Medical, Surgical, Social, Family History: Past Medical History: Diagnosis Date Acute respiratory failure ([facility]) Due to MRSA pneumonia 04/2016; Allergic rhinitis Anoxic brain damage ([facility]) Aspiration, chronic pulmonary Bowel and bladder incontinence Cerebral palsy ([facility]) Chronic osteomyelitis of pelvic region, right ([facility]) 2018 required right ischial debridement, followed by Dr. Noland of plastics Chronic respiratory failure with hypoxia ([facility]) 3 L NC, followed by Dr. Stephy Cisse and Dr. Amalia Terry Constipation Epilepsy ([facility]) followed at [facility] neurology clinic GERD (gastroesophageal reflux disease) occasional vomiting with gagging MRSA (methicillin resistant Staphylococcus aureus) 04/2016 Bilateral lungs Muscle spasticity medically refractory and has baclofen pump since 1999, followed at [facility] neuro baclofen pump clinic Nonverbal Answers yes with very long blinks per adoptive parent PEG (percutaneous endoscopic gastrostomy) status ([facility]) Presence of intrathecal baclofen pump [address] 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 Urine retention occasional occurrence that requires straight cath periodically Wheelchair bound Past Surgical History: Procedure Laterality Date BACK SURGERY 1999 Marrufo rods placed BACLOFEN PUMP IMPLANTATION X 3- last 2009 CHOLECYSTECTOMY INCISION AND DRAINAGE LOWER EXTREMITY Right 12/02/2018 Procedure: INCISION AND DRAINAGE WITH BONE BIOPSY OF RIGHT ISCHIUM; Surgeon: Rad Luque MD; Location: [facility] Main OR; Service: Orthopedic LAMINECTOMY DECOMP THORACIC MULTI LEVEL N/A 07/27/2016 Procedure: T1-2 THORACIC FUSION REVISION ; Surgeon: Kb Ramsey MD; Location: [facility] Main OR; Service: PEG TUBE INSERTION REVISION PAIN PUMP N/A 07/27/2016 Procedure: BACLOFEN PUMP REPLACEMENT ; Surgeon: Kb Ramsey MD; Location: [facility] Main OR; Service: SALIVARY GLAND SURGERY Social History Socioeconomic History Marital status: Single Spouse name: Not on file Number of children: Not on file Years of education: Not on file Highest education level: Not on file Occupational History Not on file Social Needs Financial resource strain: Not on file Food insecurity Worry: Not on file Inability: Not on file Transportation needs Medical: Not on file Non-medical: Not on file Tobacco Use Smoking status: Never Smoker Smokeless tobacco: Never Used Substance and Sexual Activity Alcohol use: No Drug use: No Sexual activity: Not on file Lifestyle Physical activity Days per week: Not on file Minutes per session: Not on file Stress: Not on file Relationships Social connections Talks on phone: Not on file Gets together: Not on file Attends protestant service: Not on file Active member of club or organization: Not on file Attends meetings of clubs or organizations: Not on file Relationship status: Not on file Other Topics Concern Not on file Social History Narrative Not on file Family History Adopted: Yes Family history unknown: Yes Home Medications: Outpatient Medications as of 08/13/2020 Medication Sig acetaminophen (TYLENOL) 325 MG tablet 650 mg by G-tube route every 6 (six) hours as needed for pain . baclofen 40,000 mcg/20mL (2,000 mcg/mL) Syrg 649 mcg by Intrathecal route daily . cannabidioL (Epidiolex) 100 mg/mL Soln Take 3.2 mL by mouth 2 (two) times a day . cholecalciferol, vitamin D3, (VITAMIN D3) 2,000 unit cap 2,000 Units by G-tube route every morning. diazePAM (VALIUM) 2 MG tablet 3 (three) tablets (6 mg total) by Per G Tube route daily as needed For seizures . fluticasone propionate (FLONASE) 50 mcg/actuation nasal spray Instill 1 (one) spray into each nostril daily as needed for rhinitis . guaiFENesin (ROBITUSSIN) 100 mg/5 mL syrup 200 mg by G-tube route 3 (three) times a day as needed for cough . ipratropium (ATROVENT) 0.02 % nebulizer solution Do one breathing treatment twice daily. If she is congested or wheezing or labored, she can do this 4 times daily. . lamoTRIgine (LAMICTAL) 100 MG tablet 1 (one) tablet (100 mg total) by Per G Tube route 2 (two) times a day Take with 150mg tablet . lamoTRIgine (LAMICTAL) 150 MG tablet 1 (one) tablet (150 mg total) by Per G Tube route 2 (two) times a day Take with 100mg tablet . levETIRAcetam (KEPPRA) 100 mg/mL solution TAKE 10 ML BY MOUTH TWICE DAILY loratadine (CLARITIN) 10 mg tablet 10 mg by G-tube route every morning . medroxyPROGESTERone (DEPO-PROVERA) 150 mg/mL Syrg INJECT 1ML INTRAMUSCULARLY EVERY 10 TO 13 WEEKS montelukast (SINGULAIR) 10 mg tablet 10 mg by Per G Tube route daily . multivitamin/iron/folic acid (CENTRUM ORAL) 10 mL by G-tube route every morning . omeprazole (PRILOSEC) 40 MG capsule 40 mg by G-tube route every morning . polyethylene glycol (MIRALAX) 17 gram powder 17 g by Per G Tube route every morning . promethazine (PHENERGAN) 12.5 MG suppository Insert 12.5 mg into the rectum every 6 (six) hours as needed for nausea. metoprolol succinate (TOPROL-XL) 25 MG 24 hr tablet 12.5 mg daily G-Tube . whey protein isolate 6 gram-25 kcal/7 gram Powd Take 1 packet by mouth daily . Physical Exam: BP 95/60 (BP Location: Right arm, Patient Position: Lying) Pulse (!) 101 Temp 98.6 F (37 C) Resp (!) 25 Ht 4' 6 Wt 36.3 kg (80 lb) SpO2 100% BMI 19.29 kg/m General: NAD, nontoxic appearing Eyes: EOMI ENT: neck supple Cardiovascular: Regular rate. Respiratory: Clear to auscultation, on 2L O2 Gastrointestinal: Soft, non tender to palpation, PEG in place Genitourinary: no suprapubic tenderness Musculoskeletal: No edema Skin: warm, dry. See media for sacral woun Neuro: Alert. DNFC. Psych: [place] Labs, Imaging, and Studies reviewed: Results from last 7 days Lab Units 08/13/20 1139 WBC K/mcL 9.83 HGB g/dL 11.9* HCT % 38.3 PLT K/mcL 251 Results from last 7 days Lab Units 08/13/20 1139 SODIUM mmol/L 142 POTASSIUM mmol/L 3.4* CHLORIDE mmol/L 100 BICARB mmol/L 32 BUN mg/dL 17 CREATININE mg/dL 0.48 EGFR mL/min/1.73 m2 132 GLUCOSE mg/dL 92 CALCIUM mg/dL 9.9 Results from last 7 days Lab Units 08/13/20 1139 ALT U/L 18 AST U/L 16 ALK PHOS U/L 193* BILIRUBIN TOTAL mg/dL 0.2 Associated attestation - Elodia Mendoza MD - 08/13/2020 6:34 PM EST I saw and evaluated the patient independently. Discussed case with Janna Burr PA-C. I agree with their history, exam, and plan of care. All laboratory and images personally reviewed, Chart reviewed, including documentation from previous hospitalizations and it systems analyst consultant recommendations as summarized above. Pulse ox reviewed. Patient is new to me Patient with sacral wound vitals notable for elevated HR hypotension WBC normal Unable to verify outpt antibiotics as discussed in quick note Patient discharged AMA with her caregiver with PIV in place AMA Will need close follow up on blood cultures pending here and wound plan Elodia Mendoza MD [facility] [phone] (office)documented in this encounter [facility] History and Physical Note 09/23/20 Claudine Joseph 1990 [id number] Assessment/Plan: Claudine Joseph is a 30 y.o. female with a history of spastic cerebral palsy, quadriplegia, chronic respiratory failure, seizures, decubitus ulcers with wound vac, chronic sage and PEG tube who presented to [facility] 09/23/2020 with need for placement, found to be COVID-19 positive on admit. 1. COVID-19 Infection: tested positive 09/23/20. Appears asymptomatic but difficult to evaluate due to nonverbal status. No increased O2 requirements. Supportive care, special isolation, monitor closely for decompensation. 2. Need for Placement: patient presented to [facility] for outpatient appointment but mother had syncopal episode requiring hospitalization. Patient has no one else to care for her. Social work following to assist with placement. 3. Chronic Hypoxic Respiratory Failure: due to prior MRSA pneumonia and subsequent restrictive lung disease. On 2L NC at baseline. 4. Spastic Cerebral Palsy: complicated by quadriplegia, seizures, decubitus ulcers and dysphagia. Non verbal at baseline. Communicates some via blinking. Has intrathecal baclofen pump in place. 5. Chronic Seizures: On multiple AEDs with known minor breatkthrough seizures. Continued home Keppra, Lamictal. 6. Chronic Dysphagia: with PEG tube in place. Consulted Captain Waiter/Waitress for TF recs. 7. Chronic Urinary Retention: with chronic sage catheter in place. 8. Chronic Anemia: Hgb 11.9 on admit, baseline ~11. Monitor and transfuse for Hgb < 7. 9. DVT Prophylaxis: Lovenox SQ Current living situation: Lives with mother Expected Disposition: TBD Estimated discharge date: >2 days Chief Complaint: Placement needs History of Present Illness: Claudine Joseph is a 30 y.o. female with a history of spastic cerebral palsy, quadriplegia, chronic respiratory failure, seizures, decubitus ulcers with wound vac, chronic sage and PEG tube who presented to [facility] 09/23/2020 with need for placement, found to be COVID-19 positive on admit. Patient has a history of cerebral palsy complicated by quadriplegia. She is nonverbal at baseline. History obtained primarily through chart review. Patient presented earlier today with her mother for an outpatient appointment, however while at [facility] the patient's mother had a syncopal episode requiring hospitalization. The patient's mother is her primary caregiver and there is no one else to care for her, so social work recommended she present to the emergency department for assistance. Per triage note the patient had low oxygen levels however it appears the patient's oxygen tank was low. She is currently on her baseline oxygen of 2L with SpO2 in high 90s. Patient is new to al. Medical record reviewed including lab, vitals, diagnostics, and it systems analyst consultant recommendations. Discussed with [facility] attending physician Dr. Castañeda with plan as above and final attestation to follow. ROS: Unable to perform a complete review of systems due to patient is nonverbal at baseline Past Medical, Surgical, Social, Family History: Past Medical History: Diagnosis Date Acute respiratory failure (HCC) Due to MRSA pneumonia 04/2016; Allergic rhinitis Anoxic brain damage ([facility]) Aspiration, chronic pulmonary Bowel and bladder incontinence Cerebral palsy ([facility]) Chronic osteomyelitis of pelvic region, right ([facility]) 2019 required right ischial debridement, followed by Dr. Noland of plastics Chronic respiratory failure with hypoxia ([facility]) 3 L NC, followed by Dr. Stephy Cisse and Dr. Amalia Terry Constipation Epilepsy ([facility]) followed at [facility] neurology clinic GERD (gastroesophageal reflux disease) occasional vomiting with gagging MRSA (methicillin resistant Staphylococcus aureus) 04/2016 Bilateral lungs Muscle spasticity medically refractory and has baclofen pump since 1999, followed at [facility] neuro baclofen pump clinic Nonverbal Answers yes with very long blinks per adoptive parent PEG (percutaneous endoscopic gastrostomy) status ([facility]) Presence of intrathecal baclofen pump [address] Roxy Restrictive lung disease due to kyphoscoliosis due to body habitus Urine retention occasional occurrence that requires straight cath periodically Wheelchair bound Past Surgical History: Procedure Laterality Date BACK SURGERY 1999 Marrufo rods placed BACLOFEN PUMP IMPLANTATION X 3- last 2009 CHOLECYSTECTOMY INCISION AND DRAINAGE LOWER EXTREMITY Right 12/02/2018 Procedure: INCISION AND DRAINAGE WITH BONE BIOPSY OF RIGHT ISCHIUM; Surgeon: Rad Luque MD; Location: [facility] Main OR; Service: Orthopedic LAMINECTOMY DECOMP THORACIC MULTI LEVEL N/A 07/27/2016 Procedure: T1-2 THORACIC FUSION REVISION ; Surgeon: Kb Ramsey MD; Location: [facility] Main OR; Service: PEG TUBE INSERTION REVISION PAIN PUMP N/A 07/27/2016 Procedure: BACLOFEN PUMP REPLACEMENT ; Surgeon: Kb Ramsey MD; Location: [facility] Main OR; Service: SALIVARY GLAND SURGERY Social History Socioeconomic History Marital status: Single Spouse name: Not on file Number of children: Not on file Years of education: Not on file Highest education level: Not on file Occupational History Not on file Social Needs Financial resource strain: Not on file Food insecurity Worry: Not on file Inability: Not on file Transportation needs Medical: Not on file Non-medical: Not on file Tobacco Use Smoking status: Never Smoker Smokeless tobacco: Never Used Substance and Sexual Activity Alcohol use: No Drug use: No Sexual activity: Not on file Lifestyle Physical activity Days per week: Not on file Minutes per session: Not on file Stress: Not on file Relationships Social connections Talks on phone: Not on file Gets together: Not on file Attends protestant service: Not on file Active member of club or organization: Not on file Attends meetings of clubs or organizations: Not on file Relationship status: Not on file Other Topics Concern Not on file Social History Narrative Not on file Family History Adopted: Yes Family history unknown: Yes Home Medications: Outpatient Medications as of 09/23/2020 Medication Sig acetaminophen (TYLENOL) 325 MG tablet 650 mg by G-tube route every 6 (six) hours as needed for pain . baclofen 40,000 mcg/20mL (2,000 mcg/mL) Syrg 649 mcg by Intrathecal route daily . cannabidioL (Epidiolex) 100 mg/mL Soln Take 3.2 mL by mouth 2 (two) times a day . cholecalciferol, vitamin D3, (VITAMIN D3) 2,000 unit cap 2,000 Units by G-tube route every morning. diazePAM (VALIUM) 2 MG tablet 3 (three) tablets (6 mg total) by Per G Tube route daily as needed For seizures . doxycycline hyclate (VIBRAMYCIN) 100 MG capsule Take 100 mg by mouth 2 (two) times a day . fluticasone propionate (FLONASE) 50 mcg/actuation nasal spray Instill 1 (one) spray into each nostril daily as needed for rhinitis . guaiFENesin (ROBITUSSIN) 100 mg/5 mL syrup 200 mg by G-tube route 3 (three) times a day as needed for cough . ipratropium (ATROVENT) 0.02 % nebulizer solution Do one breathing treatment twice daily. If she is congested or wheezing or labored, she can do this 4 times daily. . lamoTRIgine (LAMICTAL) 100 MG tablet 1 (one) tablet (100 mg total) by Per G Tube route 2 (two) times a day Take with 150mg tablet . lamoTRIgine (LAMICTAL) 150 MG tablet 1 (one) tablet (150 mg total) by Per G Tube route 2 (two) times a day Take with 100mg tablet . levETIRAcetam (KEPPRA) 100 mg/mL solution TAKE 10 ML BY MOUTH TWICE DAILY loratadine (CLARITIN) 10 mg tablet 10 mg by G-tube route every morning . medroxyPROGESTERone (DEPO-PROVERA) 150 mg/mL Syrg INJECT 1ML INTRAMUSCULARLY EVERY 10 TO 13 WEEKS metoprolol succinate (TOPROL-XL) 25 MG 24 hr tablet 12.5 mg daily G-Tube . montelukast (SINGULAIR) 10 mg tablet 10 mg by Per G Tube route daily . multivitamin/iron/folic acid (CENTRUM ORAL) 10 mL by G-tube route every morning . omeprazole (PRILOSEC) 40 MG capsule 40 mg by G-tube route every morning . polyethylene glycol (MIRALAX) 17 gram powder 17 g by Per G Tube route every morning . promethazine (PHENERGAN) 12.5 MG suppository Insert 12.5 mg into the rectum every 6 (six) hours as needed for nausea. Physical Exam: BP (!) 117/95 (BP Location: Right arm, Patient Position: Lying) Pulse (!) 104 Temp 99 F (37.2 C) (Oral) Resp 18 SpO2 97% General: NAD, patient is nonverbal Eyes: EOMI ENT: neck supple Cardiovascular: Regular rate. Respiratory: fine crackles bilaterally to auscultation, respirations unlabored. Gastrointestinal: Soft, non tender, non distended. PEG tube in place. Genitourinary: no suprapubic tenderness. Sage cath in place. Musculoskeletal: No edema. Skin: warm, dry Neuro: Alert, opens eyes. Quadriplegia. Psych: Mood appropriate. Labs, Imaging, and Studies reviewed: Results from last 7 days Lab Units 09/23/20 1608 SODIUM mmol/L 139 POTASSIUM mmol/L 4.2 CHLORIDE mmol/L 102 BICARB mmol/L 27 BUN mg/dL 14 CREATININE mg/dL 0.33* EGFR mL/min/1.73 m2 149 GLUCOSE mg/dL 97 CALCIUM mg/dL 9.8 Associated attestation - Fred Castañeda MD - 09/23/2020 10:58 PM EST I saw and examined Claudine Joseph independently reviewing labs, imaging and consultation notes on 09/23/20 . I was physically present for the camejo portions of the services provided. I agree with the plan of Kendal Chaudhari CNP - with the following additions and exceptions. Claudine Joseph is a 30-year-old female with known history of spastic cerebral palsy and resulting quad paraplegia known history of seizures, chronic Sage and PEG who presented to [facility], found to be COVID-19 positive. Reportedly, patient's mother had a syncopal episode requiring hospitalization, as patient had no one to care for her she was brought to the emergency room where she was incidentally found to have COVID-19. On physical exam, patient is opens eyes alert, lungs fairly clear, heart regular rate, no lower extremity edema. Sage in place. PEG tube in place without erythema. Patient COVID-19 positive. Known history of chronic respiratory failure requiring baseline 2 L. Patient remains on baseline, continue to monitor for signs and symptoms of decompensation. Continue home antiepileptics, baclofen pump. Social work consulted for placement assistance.documented in this encounter [facility] History and Physical Note 03/21/20 Claudine Joseph 1990 [id number] Assessment/Plan: Claudine Joseph is a 29 y.o. female with a history of spastic cerebral palsy, quadriplegia, chronic respiratory failure, seizures, decubitus ulcers with wound vac, chronic sage and Peg Tube with recent admission 02/12/20-02/14/20 for sepsis due to aspiration pneumonia who presented to [facility] 03/21/2020 with concern for sepsis by mother due to change in behaviour. In the ED BP soft 84/56 on arrival, afebrile. WBC 7.95, lactate 0.9, Na 146. UA with 113 WBC, Large LE. 1. Hypotension: suspect due to possible UTI - although with chronic Sage. Urine and blood culture pending. Home BB held. IV fluids and empirically started on Rocephin. Follow cultures.Telemtry monitoring 2. Chronic hypoxic repsiratory failure: h/o MRSA pneumonia and with restricted lung disease since then. On 4-5 L via NC, at baseline 3. 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 Non verbal at abseline. Communicates some via blinking. Has intrathecal baclofen pumb. 4. Chronic seizures: per history. On multiple AEDs with known minor breatkthrough seizures - resumed 5. Chronic wound: due to pressure injury prior to admission. Follows with wound care clinic. Wound vac in place. On suppressive doxycycline. Planned for Meropenem initiation per patient due to positive wound culture. Records requested. ET consulted 6. Chronic Dysphagia: Peg tube in place. RD consulted for resuming feeds 7. Chronic urinary retention: with chronic Sage. 8. DVT Prophylaxis: Lovenox SC Current living situation: Home with home health with mother Expected Disposition: Likely same Estimated discharge date: TBD Mother updated bedside 03/21/20 Chief Complaint: Hypotension History of Present Illness: Claudine Joseph is a 29 y.o. female with a history of spastic cerebral palsy, quadriplegia, chronic respiratory failure, seizures, decubitus ulcers with wound vac, chronic sage and Peg Tube with recent admission 02/12/20-02/14/20 for sepsis due to aspiration pneumonia who presented to [facility] 03/21/2020 with concern for sepsis by mother. Patient is non verbal at baseline. Blinks ot communicate. Apparently seems ed to be in irritated last night and this AM mother noted to have low BP this AM and was concerned for sepsis and brought in to the ER. ROS: Unable to perform a complete review of systems due to Mental status Past Medical, Surgical, Social, Family History: Past Medical History: Diagnosis Date Acute respiratory failure (HCC) Due to MRSA pneumonia 04/2016; Allergic rhinitis Anoxic brain damage ([facility]) Aspiration, chronic pulmonary Bowel and bladder incontinence Cerebral palsy ([facility]) Chronic osteomyelitis of pelvic region, right ([facility]) 2019 required right ischial debridement, followed by Dr. Noland of plastics Chronic respiratory failure with hypoxia ([facility]) 3 L NC, followed by Dr. Stephy Cisse and Dr. Amalia Terry Constipation Epilepsy ([facility]) followed at [facility] neurology clinic GERD (gastroesophageal reflux disease) occasional vomiting with gagging MRSA (methicillin resistant Staphylococcus aureus) 04/2016 Bilateral lungs Muscle spasticity medically refractory and has baclofen pump since 1999, followed at [facility] neuro baclofen pump clinic Nonverbal Answers yes with very long blinks per adoptive parent PEG (percutaneous endoscopic gastrostomy) status ([facility]) Presence of intrathecal baclofen pump [address] 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 Urine retention occasional occurrence that requires straight cath periodically Wheelchair bound Past Surgical History: Procedure Laterality Date BACK SURGERY 1999 Marrufo rods placed BACLOFEN PUMP IMPLANTATION X 3- last 2009 CHOLECYSTECTOMY INCISION AND DRAINAGE LOWER EXTREMITY Right 12/02/2018 Procedure: INCISION AND DRAINAGE WITH BONE BIOPSY OF RIGHT ISCHIUM; Surgeon: Rad Luque MD; Location: [facility] Main OR; Service: Orthopedic LAMINECTOMY DECOMP THORACIC MULTI LEVEL N/A 07/27/2016 Procedure: T1-2 THORACIC FUSION REVISION ; Surgeon: Kb Ramsey MD; Location: [facility] Main OR; Service: PEG TUBE INSERTION REVISION PAIN PUMP N/A 07/27/2016 Procedure: BACLOFEN PUMP REPLACEMENT ; Surgeon: Kb Ramsey MD; Location: [facility] Main OR; Service: SALIVARY GLAND SURGERY Social History Socioeconomic History Marital status: Single Spouse name: Not on file Number of children: Not on file Years of education: Not on file Highest education level: Not on file Occupational History Not on file Social Needs Financial resource strain: Not on file Food insecurity Worry: Not on file Inability: Not on file Transportation needs Medical: Not on file Non-medical: Not on file Tobacco Use Smoking status: Never Smoker Smokeless tobacco: Never Used Substance and Sexual Activity Alcohol use: No Drug use: No Sexual activity: Not on file Lifestyle Physical activity Days per week: Not on file Minutes per session: Not on file Stress: Not on file Relationships Social connections Talks on phone: Not on file Gets together: Not on file Attends protestant service: Not on file Active member of club or organization: Not on file Attends meetings of clubs or organizations: Not on file Relationship status: Not on file Other Topics Concern Not on file Social History Narrative Not on file Family History Adopted: Yes Family history unknown: Yes Home Medications: Outpatient Medications as of 03/21/2020 Medication Sig acetaminophen (TYLENOL) 325 MG tablet 650 mg by G-tube route every 6 (six) hours as needed for pain . baclofen 40,000 mcg/20mL (2,000 mcg/mL) Syrg 649 mcg by Intrathecal route daily . cholecalciferol, vitamin D3, (VITAMIN D3) 2,000 unit cap 2,000 Units by G-tube route every morning. diazePAM (VALIUM) 2 MG tablet 6 mg by Per G Tube route daily as needed For seizures . Epidiolex 100 mg/mL Soln TAKE 3.2 ML BY MOUTH TWICE DAILY (Patient taking differently: by G-tube route 2 (two) times a day This is non formulary . Patients mother brought medication with her. .) fluticasone propionate (FLONASE) 50 mcg/actuation nasal spray Instill 1 (one) spray into each nostril daily as needed for rhinitis . guaiFENesin (ROBITUSSIN) 100 mg/5 mL syrup 200 mg by G-tube route 3 (three) times a day as needed for cough . ipratropium (ATROVENT) 0.02 % nebulizer solution Do one breathing treatment twice daily. If she is congested or wheezing or labored, she can do this 4 times daily. . lamoTRIgine (LAMICTAL) 100 MG tablet 100 mg by Per G Tube route 2 (two) times a day Take with 150mg tablet . lamoTRIgine (LAMICTAL) 150 MG tablet 150 mg by Per G Tube route 2 (two) times a day Take with 100mg tablet . levETIRAcetam (KEPPRA) 100 mg/mL solution 10 mg/kg by Per G Tube route 2 (two) times a day . loratadine (CLARITIN) 10 mg tablet 10 mg by G-tube route every morning . metoprolol succinate (TOPROL-XL) 25 MG 24 hr tablet 12.5 mg daily G-Tube . montelukast (SINGULAIR) 10 mg tablet 10 mg by Per G Tube route daily . multivitamin/iron/folic acid (CENTRUM ORAL) 10 mL by G-tube route every morning . omeprazole (PRILOSEC) 40 MG capsule 40 mg by G-tube route every morning . polyethylene glycol (MIRALAX) 17 gram powder 17 g by Per G Tube route every morning . promethazine (PHENERGAN) 12.5 MG suppository Insert 12.5 mg into the rectum every 6 (six) hours as needed for nausea. whey protein isolate 6 gram-25 kcal/7 gram Powd Take 1 packet by mouth daily . Physical Exam: BP 90/60 (BP Location: Right arm, Patient Position: Lying) Pulse 92 Temp 98.8 F (37.1 C) (Axillary) Resp 18 Ht 4' 5 Wt 38.6 kg (85 lb) SpO2 100% BMI 21.28 kg/m General: chronically ill looking Eyes: EOMI ENT: neck supple, tongue coating noted - no thrush Cardiovascular: Regular rate. Respiratory: Clear to auscultation Gastrointestinal: Soft, non tender, PEG in place Genitourinary: Sage with yellow urine in bag Musculoskeletal: B/L upper and lower extremity contractures, Wound vac in place Skin: warm, dry, wound vac in place Neuro: Alert. Blinks, at baseline per mother Psych: Mood appropriate. Labs, Imaging, and Studies reviewed: Results from last 7 days Lab Units 03/21/20 1447 WBC K/mcL 7.95 HGB g/dL 12.0 HCT % 41.2 PLT K/mcL 208 Results from last 7 days Lab Units 03/21/20 1447 SODIUM mmol/L 146* POTASSIUM mmol/L 4.3 CHLORIDE mmol/L 103 BICARB mmol/L 31 BUN mg/dL 14 CREATININE mg/dL 0.33* EGFR mL/min/1.73 m2 150 GLUCOSE mg/dL 85 documented in this encounter Parul Cameron, DIRECTOR OF GLOBAL SALES - 12/01/2018 2:40 PM Danitza Modi, DO - 12/01/2018 1:31 PM EDTOAurora aly, OT - 11/30/2018 2:53 PM EDT Consult Notes (unrecognized section and content) Associated Order(s): IP CONSULT TO ORTHOPEDIC SURGERY CONSULT NOTE Patient Name: Claudine Joseph Admit Date: [id number] MR #: [id number] : 1990 Physicians: Colette Goode MD (Family); No ref. provider found (Referring) Dr. Luque (Orthopedics) Assessment and Plan: Musculoskeletal and Integument Sacral decubitus ulcer Assessment & Plan 28 y/o female with a chronic right ischial decubitus ulcer and concern for osteomyelitis as source of infection, orthopedics consulted for bone biopsy to guide antibiotic therapy. D/w Dr. Luque -Afebrile, vss -WBC 8.96, CRP 5.4, ESR 38 -Imaging reviewed-CT demonstrating Soft tissue thickening which is seen extending to the right ischium where cortical erosive changes are seen, suggestive of osteomyelitis of the underlying right ischium -Will plan for bone biopsy tomorrow with Dr. Luque-informed consent obtained from mother at bedside -NPO at [place] -Local wound care to sacral decub Chief Complaint/Reason for Visit: sacral decubitus ulcer History of Present Illness: Claudine Joseph is a 28 y.o. female with history of anoxic brain injury, cerebral palsy s/p baclofen pump, seizure, restrictive lung disease with chronic respiratory failure on 4L NC, aspiration, PEG tube, incontinence, chronic sacral ulcer (since march), GERD, hypernatremia who presented to [facility] from home on 11/28/2018 with complaints of fever, increased respiratory requirements. She was found to be septic in the ED with source likely osteomyelitis and sacral abscess as noted on CT. Patient also found to have a urine culture positive for klebsiella. Mother at bedside providing information, patient is non verbal. Mother states patient has had the sacral decub since march. They have been doing local wound care since. Orthopedics consulted for bone biopsy to guide with antibiotic therapy. History: Past Medical History: Diagnosis Date Acute respiratory failure (HCC) Due to MRSA pneumonia 04/2016; Allergic rhinitis Anoxic brain damage (HCC) Aspiration, chronic pulmonary Bowel and bladder incontinence Cerebral palsy (HCC) Chronic respiratory failure with hypoxia (HCC) Constipation GERD (gastroesophageal reflux disease) occasional vomiting with gagging MRSA (methicillin resistant Staphylococcus aureus) 04/2016 Bilateral lungs Nonverbal Answers yes with very long blinks per adoptive parent Postoperative retention of urine occasional occurrence that requires straight cath periodically Restrictive lung disease due to kyphoscoliosis Seizures (HCC) Daily occurrence-Neuro- adoptive mother can't remember name of urologist Past Surgical History: Procedure Laterality Date BACK SURGERY 1999 Marrufo rods placed BACLOFEN PUMP IMPLANTATION X 3- last 2009 CHOLECYSTECTOMY LAMINECTOMY DECOMP THORACIC MULTI LEVEL N/A 07/27/2016 Procedure: T1-2 THORACIC FUSION REVISION ; Surgeon: Kb Ramsey MD; Location: [facility] Main OR; Service: PEG TUBE INSERTION REVISION PAIN PUMP N/A 07/27/2016 Procedure: BACLOFEN PUMP REPLACEMENT ; Surgeon: Kb Ramsey MD; Location: [facility] Main OR; Service: SALIVARY GLAND SURGERY Family History Adopted: Yes Family history unknown: Yes Social History Socioeconomic History Marital status: Single Spouse name: Not on file Number of children: Not on file Years of education: Not on file Highest education level: Not on file Social Needs Financial resource strain: Not on file Food insecurity - worry: Not on file Food insecurity - inability: Not on file Transportation needs - medical: Not on file Transportation needs - non-medical: Not on file Occupational History Not on file Tobacco Use Smoking status: Never Smoker Smokeless tobacco: Never Used Substance and Sexual Activity Alcohol use: No Drug use: No Sexual activity: Not on file Other Topics Concern Not on file Social History Narrative Not on file Allergy Information: I have reviewed the patient's allergies. Levaquin [levofloxacin]; Lactose intolerance [lactase]; Penicillins; Ragweed; and Augmentin [amoxicillin-pot clavulanate] Home Medications: Outpatient Medications as of 12/01/2018 Medication Sig acetaminophen (TYLENOL) 325 MG tablet 650 mg by G-tube route every 6 (six) hours as needed for pain . baclofen 40,000 mcg/20mL (2,000 mcg/mL) Syrg 670 mcg by Intrathecal route daily. cholecalciferol, vitamin D3, (VITAMIN D3) 2,000 unit cap 2,000 Units by G-tube route every morning. diazePAM (VALIUM) 2 MG tablet Take 3 tablets by mouth once daily as needed for seizure activity . fluticasone (FLONASE) 50 mcg/actuation nasal spray 2 sprays into each nostril daily as needed for rhinitis. guaiFENesin (ROBITUSSIN) 100 mg/5 mL syrup 200 mg by G-tube route 3 (three) times a day as needed for cough . lamoTRIgine (LAMICTAL) 100 MG tablet Take 1 (one) tablet (100 mg total) by mouth 2 (two) times a day . lamoTRIgine (LAMICTAL) 150 MG tablet Take 1 (one) tablet (150 mg total) by mouth 2 (two) times a day Take with the Lamictal 100 mg tablets bid for a total of 250 mg bid. . levETIRAcetam (KEPPRA) 100 mg/mL solution Take 10 mL (1,000 mg total) by mouth 2 (two) times a day . loratadine (CLARITIN) 10 mg tablet 10 mg by G-tube route every morning . medroxyPROGESTERone (DEPO-PROVERA) 150 mg/mL injection Inject 150 mg into the shoulder, thigh, or buttocks every 3 (three) months. metoprolol succinate (TOPROL-XL) 25 MG 24 hr tablet Take 12.5 mg by mouth daily. multivitamin (THERAGRAN) per tablet 1 tablet by G-tube route every morning. omeprazole (PRILOSEC) 20 MG capsule 20 mg by G-tube route every morning . polyethylene glycol (MIRALAX) 17 gram powder Take 17 g by mouth every morning . promethazine (PHENERGAN) 12.5 MG suppository Insert 12.5 mg into the rectum every 6 (six) hours as needed for nausea. baclofen (LIORESAL) 20 MG tablet Take 1 tablet as needed for baclofen withdrawal. ipratropium (ATROVENT) 0.02 % nebulizer solution Do one breathing treatment twice daily. If she is congested or wheezing or labored, she can do this 4 times daily.. Review of Systems: The following system(s) were reviewed and pertinent findings noted: Constitutional CV Neuro Skin Musc Physical Examination: Vital Signs: BP 113/75 (BP Location: Right arm, Patient Position: Lying) Pulse (!) 104 Temp 98.8 F (37.1 C) (Axillary) Resp (!) 20 Ht 4' 6 Wt 40.8 kg (90 lb) SpO2 96% BMI 21.70 kg/m Constitutional: Patient non verbal at baseline Cardiovascular: 1+ DP pulse with BCR to all toes to right lower extremity Neurological: RLE: unable to assess, patient non verbal Musculoskeletal: RLE: unable to assess due to history of CP Integumentary: RLE: dime sized open wound noted to the right ischium. Small amount of serosanguinous drainage on bandage. Minimal surrounding erythema. No lymphangitic streaking. No palpable crepitus, fluctuance or induration. Associated attestation - Rad Luque MD - 12/02/2018 10:46 AM EDT The patient was seen and examined independent of resident or COMPREHENSIVE OPHTHALMOLOGIST/PA-C. I agree with the stated plan. Patient needs debridement of her ischial wound, which has been open since march. We will help take care of this and get a culture and permanent specimen to help ascertain chronic versus acute osteo. Likely chronic in nature. Associated Order(s): IP CONSULT TO INFECTIOUS DISEASES INFECTIOUS DISEASE CONSULT NOTE ASSESSMENT: Claudine Joseph is a 28 y.o. female with a PMH of cerebral palsy (with baclofen pump), anoxic brain injury, seizures, chronic respiratory failure on 4L at baseline, PEG tube, incontinence, chronic sacral ulcer, GERD, and hypernatremia. She presented on 11/28/2018 due to fever. 1. Sepsis: Unclear if this was related to known UTI or if sacral wound was contributing, but high suspicion that UTI was the cause. 2. UTI: Has completed three days of therapy with Cefepime 3. Sacral wound with possible abscess and osteomyelitis: Based on imaging. Question the acuity of this in the setting of possibly exposed bone as well as a normal CRP. Per chart, she recently had a wound vac in place. Per wound care note, the wound depth is nearly 6cm. If there is communication with the wound and the bone itself (ie if the wound tracks down to bone), that represents chronic osteomyelitis by definition, and the risks of long wall shear operator antibiotic therapy would outweigh the benefit as the bone cannot be sterilized as long as it remains in contact with the open wound. I discussed this with her mom at length. Ortho will try to obtain bone biopsy for path and culture tomorrow, this will be helpful in determining further. 4. PICC line in place upon presentation: Unclear why this was in place. Per H&P, was not being used. It has been removed. 5. PCN allergy: Per chart. Tolerating Cefepime. 6. Estimated Creatinine Clearance: 134.9 mL/min (by C-G formula based on SCr of 0.4 mg/dL). RECOMMENDATIONS: Diagnostics: Appreciate orthopedic surgery evaluation Please obtain deep cultures of wound, bone culture and pathology if able Appreciate wound care assistance Please request records from patient's wound care physician: Dr. Marielle Duque- [facility] Therapeutics: Discontinue Vancomycin/Cefepime in an effort to increase culture yield, given clinical stability She has received a sufficient course of Cefepime for uncomplicated Klebsiella UTI Aggressive wound care/offloading is going to imperative going forward I will continue to follow. Please call with questions. Danitza Rowland, DO [facility] Referring MD: Fidencio Brar,* Reason for Consult: osteomyelitis of ischium, sacral decubitis ulcer, possible abscess, assistance with antibiotics Chief Complaint: fever HPI: Claudine Joseph is a 28 y.o. female with a PMH of cerebral palsy (with baclofen pump), anoxic brain injury, seizures, chronic respiratory failure on 4L at baseline, PEG tube, incontinence, chronic sacral ulcer, GERD, and hypernatremia. She presented on 11/28/2018 due to fever. Upon presentation, she was febrile to 100.9 with a WBC of 11. Blood and urine cultures were obtained, and Vancomycin and Cefepime were initiated. Blood cultures are NGTD, but urine culture grew Klebsiella. A CT C/A/P noted: IR was consulted for drainage of possible ulcer but recommended ortho evaluation. General surgery was consulted and recommended ortho evaluation. No wound cultures have been obtained as of yet. I discussed with ortho. They will try to obtain bone path and culture tomorrow. At baseline, patient is nonverbal and either wheelchair or bed bound. As stated above, she has a PEG and a baclofen pump in place. Mom tells me that the ulcer has been present since last fall. She has been following with wound care in [facility] and had a wound vac up until a week ago. She tells me that the wound care doctor ordered an oral antibiotic recently but that Claudine hadn't gotten to start it prior to being admitted. Mom thinks that Claudine is doing much better clinically. Review of Systems Review of Systems Unable to perform ROS: Patient nonverbal Past Medical History: Diagnosis Date Acute respiratory failure (HCC) Due to MRSA pneumonia 04/2016; Allergic rhinitis Anoxic brain damage (HCC) Aspiration, chronic pulmonary Bowel and bladder incontinence Cerebral palsy (HCC) Chronic respiratory failure with hypoxia (HCC) Constipation GERD (gastroesophageal reflux disease) occasional vomiting with gagging MRSA (methicillin resistant Staphylococcus aureus) 04/2016 Bilateral lungs Nonverbal Answers yes with very long blinks per adoptive parent Postoperative retention of urine occasional occurrence that requires straight cath periodically Restrictive lung disease due to kyphoscoliosis Seizures ([facility]) Daily occurrence-Neuro- adoptive mother can't remember name of urologist Past Surgical History: Procedure Laterality Date BACK SURGERY 1999 Marrufo rods placed BACLOFEN PUMP IMPLANTATION X 3- last 2009 CHOLECYSTECTOMY LAMINECTOMY DECOMP THORACIC MULTI LEVEL N/A 07/27/2016 Procedure: T1-2 THORACIC FUSION REVISION ; Surgeon: Kb Ramsey MD; Location: [facility] Main OR; Service: PEG TUBE INSERTION REVISION PAIN PUMP N/A 07/27/2016 Procedure: BACLOFEN PUMP REPLACEMENT ; Surgeon: Kb Ramsey MD; Location: [facility] Main OR; Service: SALIVARY GLAND SURGERY Social History Socioeconomic History Marital status: Single Spouse name: None Number of children: None Years of education: None Highest education level: None Social Needs Financial resource strain: None Food insecurity - worry: None Food insecurity - inability: None Transportation needs - medical: None Transportation needs - non-medical: None Occupational History None Tobacco Use Smoking status: Never Smoker Smokeless tobacco: Never Used Substance and Sexual Activity Alcohol use: No Drug use: No Sexual activity: None Other Topics Concern None Social History Narrative None Family History Adopted: Yes Family history unknown: Yes Medications Prior to Admission Medication Sig Dispense Refill Last Dose acetaminophen (TYLENOL) 325 MG tablet 650 mg by G-tube route every 6 (six) hours as needed for pain . 11/28/2018 at 1200 baclofen 40,000 mcg/20mL (2,000 mcg/mL) Syrg 670 mcg by Intrathecal route daily. 100 mL 0 11/28/2018 at 0700 cholecalciferol, vitamin D3, (VITAMIN D3) 2,000 unit cap 2,000 Units by G-tube route every morning. 11/28/2018 at 0700 diazePAM (VALIUM) 2 MG tablet Take 3 tablets by mouth once daily as needed for seizure activity . 30 tablet 2 11/27/2018 at 0700 fluticasone (FLONASE) 50 mcg/actuation nasal spray 2 sprays into each nostril daily as needed for rhinitis. 11/27/2018 at 0700 guaiFENesin (ROBITUSSIN) 100 mg/5 mL syrup 200 mg by G-tube route 3 (three) times a day as needed for cough . 11/22/2018 lamoTRIgine (LAMICTAL) 100 MG tablet Take 1 (one) tablet (100 mg total) by mouth 2 (two) times a day . 60 tablet 11 11/27/2018 at 1800 lamoTRIgine (LAMICTAL) 150 MG tablet Take 1 (one) tablet (150 mg total) by mouth 2 (two) times a day Take with the Lamictal 100 mg tablets bid for a total of 250 mg bid. . 60 tablet 11 11/27/2018 at 1800 levETIRAcetam (KEPPRA) 100 mg/mL solution Take 10 mL (1,000 mg total) by mouth 2 (two) times a day . 600 mL 11 11/28/2018 at 1800 loratadine (CLARITIN) 10 mg tablet 10 mg by G-tube route every morning . 11/28/2018 at 0700 medroxyPROGESTERone (DEPO-PROVERA) 150 mg/mL injection Inject 150 mg into the shoulder, thigh, or buttocks every 3 (three) months. 11/16/2018 at Unknown time metoprolol succinate (TOPROL-XL) 25 MG 24 hr tablet Take 12.5 mg by mouth daily. 11/28/2018 at 1800 multivitamin (THERAGRAN) per tablet 1 tablet by G-tube route every morning. 11/28/2018 at 0700 omeprazole (PRILOSEC) 20 MG capsule 20 mg by G-tube route every morning . 11/28/2018 at 1800 polyethylene glycol (MIRALAX) 17 gram powder Take 17 g by mouth every morning . 11/28/2018 at 0700 promethazine (PHENERGAN) 12.5 MG suppository Insert 12.5 mg into the rectum every 6 (six) hours as needed for nausea. 11/22/2018 at Unknown time baclofen (LIORESAL) 20 MG tablet Take 1 tablet as needed for baclofen withdrawal. 30 tablet 3 More than a month at Unknown time ipratropium (ATROVENT) 0.02 % nebulizer solution Do one breathing treatment twice daily. If she is congested or wheezing or labored, she can do this 4 times daily.. 300 mL 12 Current Medications: cefePIMe (MAXIPIME) IVPB 2,000 mg Intravenous Q8H enoxaparin (LOVENOX) injection 30 mg Subcutaneous Daily fluticasone propionate 2 spray Nasal Daily ipratropium 0.5 mg Inhalation BID lamoTRIgine 100 mg Tube BID lamoTRIgine 150 mg Tube BID levETIRAcetam 1,000 mg Oral BID loratadine 10 mg Tube QAM metoprolol succinate 12.5 mg Oral Daily multivitamin 1 tablet Oral Daily pantoprazole 40 mg Tube Daily polyethylene glycol 17 g Oral QAM vancomycin 850 mg Intravenous Q12H Allergies Allergen Reactions Levaquin [Levofloxacin] Rash, flushing with RUE arm swelling. Lactose Intolerance [Lactase] Penicillins Other (See Comments) Blisters Ragweed Unknown Augmentin [Amoxicillin-Pot Clavulanate] Rash OBJECTIVE FINDINGS: Vital Signs (24hrs): Temp: [97.3 F (36.3 C)-98.8 F (37.1 C)] 98.8 F (37.1 C) Heart Rate: [85-106] 104 Resp: [12-20] 20 BP: (106-113)/(63-76) 113/75 Physical Exam Constitutional: She appears well-developed and well-nourished. No distress. Mom at bedside HENT: Head: Normocephalic and atraumatic. Eyes: EOM are normal. No scleral icterus. Neck: Normal range of motion. Neck supple. Cardiovascular: Normal rate and regular rhythm. No murmur heard. Pulmonary/Chest: Effort normal and breath sounds normal. No respiratory distress. Abdominal: Soft. Bowel sounds are normal. There is no tenderness. Musculoskeletal: Normal range of motion. She exhibits no edema. Neurological: She is alert. Nonverbal/not interactive Skin: Skin is warm. No rash noted. I personally examined the ulcer- there is no surrounding cellulitis, the borders look pink and healthy. There is minimal clear/serous-appearing drainage. Psychiatric: She has a normal mood and affect. Her behavior is normal. Sacral ulcer: Diagnostic Data: Lab Results Component Value Date WBC 8.96 12/01/2018 HGB 9.8 (L) 12/01/2018 HCT 32.6 (L) 12/01/2018 MCV 96.4 12/01/2018 EXTMCV 89.0 04/22/2017 PLT 182 12/01/2018 RBC 3.38 (L) 12/01/2018 Lab Results Component Value Date NEUTROABS 6.62 12/01/2018 Estimated Creatinine Clearance: 134.9 mL/min (by C-G formula based on SCr of 0.4 mg/dL). Lab Results Component Value Date CRP 5.4 11/29/2018 Lab Results Component Value Date SEDRATE 38 (H) 11/29/2018 Microbiology and Other Significant ID Labs: (personally reviewed) 11/28 urinary culture: Imaging: (personally reviewed) CT Chest Abdomen Pelvis With IV Contrast Only Final Result Addendum 1 of 1 ADDENDUM: Partially visualized skin defect is seen in the inferior posteromedial right gluteal region with heterogeneous area of soft tissue thickening seen in the underlying subcutaneous tissues containing gas and fluid density, measuring at least 5 cm, suggestive of a decubitus ulcer with abscess formation. Soft tissue thickening is seen extending to the right ischium where cortical erosive changes are seen, suggestive of osteomyelitis of the underlying right ischium. I discussed the above findings with Dr. Onelia Gutierrez on 11/29/2018 at 2:25 p.m.. Workstation ID: [id number] Final No evidence for acute abnormality. Extensive thoracolumbar and sacral fusion is seen. Prior cholecystectomy. ANDRADE/rlc Workstation ID: [id number] XR Chest 1 View Final Result Severely limited radiograph due to scoliotic curvature and hardware bridging the entire thoracolumbar spine. Mild diffuse haziness of the lungs may be positional. PD/aw Workstation ID: [id number] Occupational Therapy Occupational Therapy Screen Upon review of the chart and discussion with caregiver, no further skilled therapy intervention is indicated. Per pt's caregiver, pt. Is dependent for all functional mobility/transfers/ADLs/IADLs at baseline and has all equipment needed, no further OT needs at this time, caregiver in agreement. Screened by occupational therapy no further needs indicated and nursing has been notified. Physical Therapy Screened by PT. Upon review of the chart and discussion with patient's caregiver, no skilled PT intervention is indicated. Patient is baseline dependent for all mobility, transfers, ADLs/IADLs. Per caregiver, patient has no equipment needs with track floor based lift at home, well fit [id number] wheelchair. Order discontinued at this time. Associated Order(s): IP CONSULT TO GENERAL SURGERY Clinic Surgery Consultation Note Patient Name: Claudine Joseph MR #: [id number] : 1990 Chief Complaint/Reason for Visit: Chief Complaint Patient presents with Fever Respiratory Distress Senior addendum: 28-year-old female with history of CP who is hospital day 2 for evaluation of fever and increased oxygen requirements. Surgery consulted to evaluate pressure ulcer on her right buttock. Seen by wound care yesterday and packed with Aquacel. No purulence draining from the wound on my examination. Patient does have positive urine culture growing gram-negative bacilli. Would not recommend wound debridement at this time, continue local wound care. If there is concern for osteomyelitis, would defer to infectious disease and/or orthopedics for diagnosis and management. Will discuss with Dr. Godwin. Donnie CONNOR5, , [place] [phone] Pager If you cannot reach me, please page [phone] Assessment and Plan: 28 y.o. female with h/o seizures, cerebral palsy, GERD, chronic aspiration, previous MRSA pneumonia causing acute respiratory failure, Prior CCY, PEG tube placement, who presented to [facility] on 11/29 with fever and hypoxia, found to have sepsis of unknown origin. General surgery consulted to evaluate sacral decubitus ulcer with abscess and osteomyelitis of the R ischium. CT C/A/P with IV contrast 11/28: Partially visualized skin defect is seen in the inferior posteromedial right gluteal region with heterogeneous area of soft tissue thickening seen in the underlying subcutaneous tissues containing gas and fluid density, measuring at least 5 cm, suggestive of a decubitus ulcer with abscess formation. Soft tissue thickening is seen extending to the right ischium where cortical erosive changes are seen, suggestive of osteomyelitis of the underlying right ischium. Sacral Decubitus Ulcer Osteomyelitis of R Ischium - CT scan reviewed with [facility] rads after examining patient, less likely abscess. When viewed in coronal and sagittal cuts appears to be one contiguous track that extends to area of osteomyelitis on R ischium - on exam, patient did not have a palpable, drainable fluid collection or purulent drainage - suspect that wound will not heal due to underlying osteomyelitis that needs to be treated - d/w orthopedics, Dr. Decker, team would only need to be involved if a bone biopsy was needed to guide antibiotic treatment - continue off loading as able - currently on vanc and cefepime, continue abx - UTI with GNB - could consider ID consult for assistance with antibiotic choice and duration - AF, WBC 10.6 - no acute surgical intervention - d/w Dr. Mock, to evaluate Ame Noland MD Surgery PGY-1 [phone] Please contact surgical integrated marketing intern supervisor telephone information at [phone] 5PM-6AM and weekends History of Present Illness: Ms. Claudine Joseph is a 28 y.o. female with a h/o seizures, cerebral palsy, GERD, chronic aspiration, previous MRSA pneumonia causing acute respiratory failure, Prior CCY, PEG tube placement, who presented to [facility] on 11/29 with fever and hypoxia, found to have sepsis of unknown origin. General surgery consulted to evaluate sacral decubitus ulcer with abscess and osteomyelitis of the R ischium. outlet manager at bedside who provided history. Patient had issues with skin breakdown starting in March 2018 when her home health care nurse changed and she wasn't being moved as much. Denies issues with wounds prior to this. Wound had initially gotten larger, but skin has now healed up significantly. However, it is tracking deeper and deeper, apparently measured 4.5 cm deep last week and was 5.4 cm on admission. Denies purulent or foul smelling drainage except for one instance in Has not had a vac placed. Overall condition has been improving since being in the hospital but still concerned that wound is tracking deeper and not fully healing. Review of Systems: The following system(s) were reviewed. Pertinent positive and negative findings are noted in the HPI. [x] Const [x] Eyes [] ENT [x] Resp [x] CV [x] GI [] [x] Neuro [x] Musc [x] Skin [] Psych [] Endo [] Allergy [] Heme/Lymph Physical Examination: General: Nonverbal, no acute distress Head: normocephalic, atraumatic Eyes: no scleral icterus, EOM grossly intact Neck: trachea midline, soft Cardiovascular: hemodynamically stable, regular rate Pulmonary: nonlabored breathing, equal chest rise Abdomen: soft, non-tender, non-distended, no peritoneal signs Extremities: no obvious deformities, WWP Skin: warm, dry and intact, R ulcer, approx 1 cm x 1 cm, no erythema, no palpable fluctuance or induration, tracks approx 5 cm deep, SS drainage on packing Neurological: PAREDES, no focal deficits History: Past Medical History: Diagnosis Date Acute respiratory failure (HCC) Due to MRSA pneumonia 04/2016; Allergic rhinitis Anoxic brain damage (HCC) Aspiration, chronic pulmonary Bowel and bladder incontinence Cerebral palsy (HCC) Chronic respiratory failure with hypoxia (HCC) Constipation GERD (gastroesophageal reflux disease) occasional vomiting with gagging MRSA (methicillin resistant Staphylococcus aureus) 04/2016 Bilateral lungs Nonverbal Answers yes with very long blinks per adoptive parent Postoperative retention of urine occasional occurrence that requires straight cath periodically Restrictive lung disease due to kyphoscoliosis Seizures (HCC) Daily occurrence-Neuro- adoptive mother can't remember name of urologist Past Surgical History: Procedure Laterality Date BACK SURGERY 1999 Marrufo rods placed BACLOFEN PUMP IMPLANTATION X 3- last 2009 CHOLECYSTECTOMY LAMINECTOMY DECOMP THORACIC MULTI LEVEL N/A 07/27/2016 Procedure: T1-2 THORACIC FUSION REVISION ; Surgeon: Kb Ramsey MD; Location: [facility] Main OR; Service: PEG TUBE INSERTION REVISION PAIN PUMP N/A 07/27/2016 Procedure: BACLOFEN PUMP REPLACEMENT ; Surgeon: Kb Ramsey MD; Location: [facility] Main OR; Service: SALIVARY GLAND SURGERY Family History Adopted: Yes Family history unknown: Yes Social History Socioeconomic History Marital status: Single Spouse name: Not on file Number of children: Not on file Years of education: Not on file Highest education level: Not on file Social Needs Financial resource strain: Not on file Food insecurity - worry: Not on file Food insecurity - inability: Not on file Transportation needs - medical: Not on file Transportation needs - non-medical: Not on file Occupational History Not on file Tobacco Use Smoking status: Never Smoker Smokeless tobacco: Never Used Substance and Sexual Activity Alcohol use: No Drug use: No Sexual activity: Not on file Other Topics Concern Not on file Social History Narrative Not on file Allergy Information: Levaquin [levofloxacin]; Lactose intolerance [lactase]; Penicillins; Ragweed; and Augmentin [amoxicillin-pot clavulanate] Home Medications: Outpatient Medications as of 11/30/2018 Medication Sig acetaminophen (TYLENOL) 325 MG tablet 650 mg by G-tube route every 6 (six) hours as needed for pain . baclofen 40,000 mcg/20mL (2,000 mcg/mL) Syrg 670 mcg by Intrathecal route daily. cholecalciferol, vitamin D3, (VITAMIN D3) 2,000 unit cap 2,000 Units by G-tube route every morning. diazePAM (VALIUM) 2 MG tablet Take 3 tablets by mouth once daily as needed for seizure activity . fluticasone (FLONASE) 50 mcg/actuation nasal spray 2 sprays into each nostril daily as needed for rhinitis. guaiFENesin (ROBITUSSIN) 100 mg/5 mL syrup 200 mg by G-tube route 3 (three) times a day as needed for cough . lamoTRIgine (LAMICTAL) 100 MG tablet Take 1 (one) tablet (100 mg total) by mouth 2 (two) times a day . lamoTRIgine (LAMICTAL) 150 MG tablet Take 1 (one) tablet (150 mg total) by mouth 2 (two) times a day Take with the Lamictal 100 mg tablets bid for a total of 250 mg bid. . levETIRAcetam (KEPPRA) 100 mg/mL solution Take 10 mL (1,000 mg total) by mouth 2 (two) times a day . loratadine (CLARITIN) 10 mg tablet 10 mg by G-tube route every morning . medroxyPROGESTERone (DEPO-PROVERA) 150 mg/mL injection Inject 150 mg into the shoulder, thigh, or buttocks every 3 (three) months. metoprolol succinate (TOPROL-XL) 25 MG 24 hr tablet Take 12.5 mg by mouth daily. multivitamin (THERAGRAN) per tablet 1 tablet by G-tube route every morning. omeprazole (PRILOSEC) 20 MG capsule 20 mg by G-tube route every morning . polyethylene glycol (MIRALAX) 17 gram powder Take 17 g by mouth every morning . promethazine (PHENERGAN) 12.5 MG suppository Insert 12.5 mg into the rectum every 6 (six) hours as needed for nausea. baclofen (LIORESAL) 20 MG tablet Take 1 tablet as needed for baclofen withdrawal. ipratropium (ATROVENT) 0.02 % nebulizer solution Do one breathing treatment twice daily. If she is congested or wheezing or labored, she can do this 4 times daily.. Laboratory and Additional Data Reviewed: Lab Results Component Value Date WBC 10.65 11/30/2018 HGB 11.1 (L) 11/30/2018 HCT 37.7 11/30/2018 MCV 100.3 (H) 11/30/2018 PLT 197 11/30/2018 Lab Results Component Value Date GLUCOSE 112 (H) 11/30/2018 CALCIUM 9.3 11/30/2018 NA 151 (H) 11/30/2018 K 3.6 11/30/2018 CL 106 11/30/2018 BUN 14 11/30/2018 CREATININE <0.20 (L) 11/30/2018 Lab Results Component Value Date ALT 22 11/28/2018 AST 20 11/28/2018 ALKPHOS 147 (H) 11/28/2018 BILITOT <0.2 11/28/2018 Lab Results Component Value Date INR 1.0 11/21/2016 PROTIME 13.3 11/21/2016 Imaging: Xr Chest 1 View Result Date: 11/28/2018 EXAMINATION: XR CHEST PA/AP HISTORY: ORDERING SYSTEM PROVIDED HISTORY: cough sob, requiring more o2, TECHNOLOGIST PROVIDED HISTORY: Reason for exam: cough sob, requiring more o2 Illness/Other Cancer History: Unknown Surgery, RadiationHistory: Yes Encounter Type: Initial Additional signs and symptoms: ORDERING SYSTEM PROVIDED DIAGNOSIS CODES: FINDINGS: Severely limited radiograph due to scoliotic curvature and hardware bridging the entire thoracolumbar spine. Difficult to exclude pathology. Right-sided PICC line is obscured due to Marrufo rods. Mild diffuse haziness in the lungs may be positional. Bones appear demineralized. Severely limited radiograph due to scoliotic curvature and hardware bridging the entire thoracolumbar spine. Mild diffuse haziness of the lungs may be positional. PD/aw Workstation ID: [id number] Ct Chest Abdomen Pelvis With Iv Contrast Only Addendum Date: 11/29/2018 ADDENDUM: Partially visualized skin defect is seen in the inferior posteromedial right gluteal region with heterogeneous area of soft tissue thickening seen in the underlying subcutaneous tissues containing gas and fluid density, measuring at least 5 cm, suggestive of a decubitus ulcer with abscess formation. Soft tissue thickening is seen extending to the right ischium where cortical erosive changes are seen, suggestive of osteomyelitis of the underlying right ischium. I discussed the above findings with Dr. Onelia Gutierrez on 11/29/2018 at 2:25 p.m.. Workstation ID: [id number] Result Date: 11/29/2018 EXAMINATION: CT CHEST ABDOMEN PELVIS WITH IV CONTRAST ONLY HISTORY: ORDERING SYSTEM PROVIDED HISTORY: Sepsis, TECHNOLOGIST PROVIDED HISTORY: Reason for exam: Sepsis Illness/Other Encounter Type: Initial Additional signs and symptoms: Sepsis ORDERING SYSTEM PROVIDED DIAGNOSIS CODES: A41.9 Sepsis, due to unspecified organism (HCC) E87.0 Hypernatremia COMPARISON: 11/21/2016. TECHNIQUE: CT examination of the chest, abdomen, and pelvis following the administration of intravenous contrast. Coronal and sagittal reformations were performed. Dose reduction techniques were achieved by using automated exposure control and/or adjustment of mA and/or kV according to patient size and/or use of iterative reconstruction technique. CONTRAST: Iopamidol 76% intravenous solution - 75 mL. 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 No obvious focal consolidation is seen. The heart size is normal. There is no evidence for pericardial effusion. No significant pleural effusion or pneumothorax is seen. No significant enlarged hilar, mediastinal or axillary adenopathy is seen. Surgical clips are seen in the lower neck which may be related to prior thyroid/parathyroid surgery. Please correlate clinically. However, normal appearing thyroid tissue is likely seen. The tracheobronchial structures appear unremarkable. ABDOMEN/PELVIS: Patient is post cholecystectomy. Surgical clips are seen in gallbladder fossa. The liver, spleen, pancreas and adrenal glands appear unremarkable. Bilateral kidneys demonstrate normal size, morphology and contrast-enhancement. There is no evidence for hydronephrosis bilaterally. The stomach and duodenum appear unremarkable. Nonobstructive bowel pattern is seen. Large volume of stool is seen throughout the colon. Normal appearing appendix is visualized. No significant bowel wall thickening is seen. The urinary bladder is unremarkable. No significant free fluid or abnormal fluid collections are seen in the abdomen and pelvis. No significant enlarged abdominal or pelvic adenopathy is seen. The vascular structures are normal in caliber and contrast-enhancement. The abdominal wall and visualized soft tissues appear grossly unremarkable. No evidence for acute abnormality. Extensive thoracolumbar and sacral fusion is seen. Prior cholecystectomy. /[facility] Workstation ID: [id number] Associated attestation - Werner Lovett MD - 12/02/2018 6:02 PM EDT Discussed case with surgery chief resident and agree with plan Werner Lovett MD General Surgery, Trauma, and Surgical Critical Care [facility] c [phone] p [phone] Associated Order(s): IP CONSULT TO DIETITIAN 11/30/2018: Nutrition Note Reason for visit: Physician Consult for initiation and management of tube feed. Nutrition Diagnosis: Swallowing difficulty related to cerebral palsy as evidenced by long-term need for enteral nutrition. Nutrition Intervention/Plan: Initiate eneteral feeding. Nutrition Prescription: Diet: NPO Tube feed: Replete via PEG at 50ml/hr to provide 1200ml, 77g protein, 1008ml fluid. Suggest free water of 20ml/hr when Na+ level is corrected. This would provide 36ml fluid/kg. Nutrition Goals: Tolerate tube feed without nausea, vomiting, diarrhea. Sacral wound will show progress toward healing per reference standard. Start Date:11/30/2018 Expected End Date:12/04/2018 Nutrition Education: No needs at this time. Monitor: PO intake, labs, skin/wounds, wt Assessment: Pertinent clinical information: Patient admitted with osteomyelitis with sacral abscess. She has an U/S area to sacrum for which she follows at a wound clinic. Chronic hypernatremia with Na= on admit 161. Now down to 151. IV fluids discontinued and receiving free water of 200ml q4h. Past Medical History: Diagnosis Date Acute respiratory failure (HCC) Due to MRSA pneumonia 04/2016; Allergic rhinitis Anoxic brain damage (HCC) Aspiration, chronic pulmonary Bowel and bladder incontinence Cerebral palsy (HCC) Chronic respiratory failure with hypoxia (HCC) Constipation GERD (gastroesophageal reflux disease) occasional vomiting with gagging MRSA (methicillin resistant Staphylococcus aureus) 04/2016 Bilateral lungs Nonverbal Answers yes with very long blinks per adoptive parent Postoperative retention of urine occasional occurrence that requires straight cath periodically Restrictive lung disease due to kyphoscoliosis Seizures (HCC) Daily occurrence-Neuro- adoptive mother can't remember name of urologist Wt: Current Weight: 40.8 kg (90 lb), Height: 4' 6 Current BMI: Body mass index is 21.7 kg/m . BMI Classification: Normal BMI range Weight History: stable; per her mom she is usually 90-95# Wt Readings from Last 5 Encounters: 11/28/18 40.8 kg (90 lb) 11/21/18 40.8 kg (90 lb) 10/07/18 40.8 kg (90 lb) 05/29/18 43.1 kg (95 lb) 01/07/18 40.8 kg (90 lb) Estimated Energy Needs Total Energy Estimated Needs: 7442-8677 kcal Method for Estimating Needs: 25-30 kcal/kg Total Protein Estimated Needs: 49-61g Method for Estimating Needs: 1.2-1.5g/kg Fluid Needs Total Fluid Estimated Needs: 1174-1408ml Method for Estimating Needs: 1ml/kcal Patient Comments: Patient's mom states that she gives her 4 cans of Ensure Plus per day via pump at 80ml/hr. If she tries to run it at more than 80ml/hr she has emesis. Once the feeding is done she runs water at 40ml/hr for ~8 hours overnight. She also makes a puree meal of various ingredients (such as tuna, avocado, oatmeal, banana, applesauce, beans, etc) and she puts this through the PEG once per day. Current Diet: NPO Recent intake: No tube feed initiated yet. Current intake does not meet estimated needs. 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 Recent Labs 11/30/18 0100 NA 151* K 3.8 BICARB 36* CL 109* GLUCOSE 112* BUN 17 CREATININE 0.40 Scheduled Meds: cefePIMe (MAXIPIME) IVPB 2,000 mg Intravenous Q8H enoxaparin (LOVENOX) injection 30 mg Subcutaneous Daily fluticasone propionate 2 spray Nasal Daily ipratropium 0.5 mg Inhalation BID lamoTRIgine 100 mg Tube BID lamoTRIgine 150 mg Tube BID levETIRAcetam 1,000 mg Oral BID loratadine 10 mg Tube QAM metoprolol succinate 12.5 mg Oral Daily multivitamin 1 tablet Oral Daily pantoprazole 40 mg Other Daily polyethylene glycol 17 g Oral QAM vancomycin 750 mg Intravenous Q12H Courtney Peter RD,LD Vocera: [phone] in this encounter Associated Order(s): IP CONSULT TO CARE MANAGEMENT COMPLEX DISCHARGE Date: 09/24/2019 Time: 10:41 AM Patient Name: Claudine Joseph Date of : 1990 Sex: Female Discharge Planning Living Arrangements: Parent Support Systems: Parent Assistance Needed: yes Type of Residence: Private residence Prior to Admission Home Care Services: Yes Type of Current Home Care Services: Home health care, Other (Comment)(Infusion Pharmacy) Does the patient need discharge transport arranged?: No Current Agency Name: (primary care) Current Home Equipment: Oxygen, Nebulizer, Hospital bed, Wheel chair Anticipated HME: None Anticipated Home Care Needs: Home health care Anticipated Facility Type: Home care, Home infusion Anticipated Discharge Plan Anticipated HME: None Anticipated Home Care Needs: Home health care Anticipated Facility Type: Home care, Home infusion [facility] Disposition D/C Disposition: Home Health Care Services Related to Current Admission?: No Agency/Destination: Other(Primary Care HH) Home Care Needs : Home health care, Infusion Pharmacy, Oxygen Infusion Agency: [place] HME: None Same As Recommended : yes Transportation Type: Auto ASSOCIATE PROFESSOR OF THEOLOGY consulted for discharge planning. ASSOCIATE PROFESSOR OF THEOLOGY into see pt, caregiver/guardian (Peg) at bedside. Peg stated she takes care of the pt at home. Pt has a hospital bed, shower bed that rolls, a track system on the ceiling to help move the pt, home oxygen (through [place] [facility]), suction, and nebulizer. Peg stated the pt receives RN services through Primary Care . Pt uses [facility] for tube feeds. Peg stated she is able to provide transportation for pt home. ASSOCIATE PROFESSOR OF THEOLOGY will await medical progression and continue to follow. Occupational Therapy Occupational Therapy Screen Upon review of the chart and discussion with and/or observation of the patient, no further skilled therapy intervention is indicated. Dependent all ADLs/track lift system in home for dependent transfers to tilt and space w/c. Screened by occupational therapy no further needs indicated and nursing has been notified. Physical Therapy Physical Therapy Screen Upon review of the chart and discussion with and/or observation of the patient, no further skilled therapy intervention is indicated. Per chart review, pt is dependent for all mobility, transfers, ADLs and IADLs. Track floor-based lift at home, [id number] wheelchair. Screened by physical therapy, no further needs indicated and nursing has been notified. Associated Order(s): IP CONSULT TO RECORD PRESS TENDER Pulmonary and Critical Care Consult Note Impression and Recommendations Claudine Joseph is a 29 y.o. female with a past medical history that includes cerebral palsy, restrictive lung disease secondary to scoliosis with chronic respiratory failure on 4 to 6 L O2 at home, seizures, recurrent pneumonia, including MRSA pneumonia, PEG tube. She presented on 09/19/2019 with cough and hypoxia. Transferred to ICU for sepsis. Severe sepsis without shock Secondary to pneumonia, likely aspiration, and UTI -Febrile, leukocytosis, tachycardia, hypotension on admission. CXR with bilateral increased haziness. Received azithromycin, ceftriaxone in ED. MRSA probe, respiratory PCR panel, strep pneumo antigen, Legionella antigen negative. -Continue azithromycin, cefepime, vancomycin. IV fluids. Blood cultures, sputum culture pending. Pneumonia Suspect aspiration -Empiric abx as above. Xopenex breathing treatment given tachycardia Acute on chronic hypoxic/hypercapnic respiratory failure Secondary to above. Patient requires ~5 L O2 chronically at home. -AB.38/54/79/31.5 on 3 L NC. -Continue Xopenex. Goal SPO2 88 to 92%. 5-day course of prednisone 40 mg daily. Guaifenesin as needed. Leukocytosis Secondary to sepsis -Treat sepsis as above. Trend CBC. Hypotension Secondary to sepsis - IVF as above Tachycardia Hx of tachycardia per mother, on beta-too at home. Infection likely exacerbating tachycardia. -Resume beta-too when BP normalizes Abnormal UA Suspect UTI. -UA with moderate LE, 37 WBCs, 11 RBCs, rare bacteria -Antibiotics as above. Urine culture pending Intractable generalized epilepsy -Daily seizures, described as BUE contracture, facial twitching -Lamictal level normal (7.6) -Continue Keppra, lamictal. Continue home cannabidiol. Valium 6 mg as needed. Spastic Cerebral palsy -Non-verbal, restricted to wheelchair at baseline follows with Dr Murphy -Has Baclofen pump in place -Continue tube feeds GERD -Continue PPI Code status: Goals of care reviewed. Patient is FULL CODE. DVT prophylaxis: Lovenox Ramón Kumar MD PGY-1 Pager # [phone] Reason for Consultation: Severe Sepsis without shock History of Presenting Illness: Claudine Joseph is a 29 y.o. female with a past medical history that includes cerebral palsy, restrictive lung disease secondary to scoliosis with chronic respiratory failure on 4 to 6 L O2 at home, seizures, recurrent pneumonia, including MRSA pneumonia, PEG tube. She presented on 09/19/2019 with cough and hypoxia. Patient's mother stated that she had vomited 1 day prior to arrival, and then aspirated. She started to have a cough and became hypoxic at home. No sick contacts or recent travel. Patient was febrile, tachycardic, tachypneic in the ED. Received empiric azithromycin and ceftriaxone in the ED. CXR showed bilateral increased haziness and severe thoracic scoliosis. Transferred to ICU for sepsis. Review of Systems: [] All other systems were reviewed and negative except for those as specified in History of Present illness. [x] Unable to obtain history or ROS secondary to clinical circumstances Past Medical, Surgical, Family, and Social History: Past Medical History: Diagnosis Date Acute respiratory failure (HCC) Due to MRSA pneumonia 04/2016; Allergic rhinitis Anoxic brain damage (HCC) Aspiration, chronic pulmonary Aspiration, chronic pulmonary Bowel and bladder incontinence Cerebral palsy (HCC) Cerebral palsy (HCC) Chronic osteomyelitis of pelvic region, right ([facility]) 2019 required right ischial debridement, followed by Dr. Noland of plastics Chronic respiratory failure with hypoxia ([facility]) 3 L NC, followed by Dr. Stephy Cisse and Dr. Amalia Terry Constipation Epilepsy ([facility]) followed at [facility] neurology clinic GERD (gastroesophageal reflux disease) occasional vomiting with gagging MRSA (methicillin resistant Staphylococcus aureus) 04/2016 Bilateral lungs Muscle spasticity medically refractory and has baclofen pump since 1999, followed at [facility] neuro baclofen pump clinic Nonverbal Answers yes with very long blinks per adoptive parent PEG (percutaneous endoscopic gastrostomy) status ([facility]) Presence of intrathecal baclofen pump [address] 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 Urine retention occasional occurrence that requires straight cath periodically Wheelchair bound Past Surgical History: Procedure Laterality Date BACK SURGERY 1999 Marrufo rods placed BACLOFEN PUMP IMPLANTATION X 3- last 2009 CHOLECYSTECTOMY INCISION AND DRAINAGE LOWER EXTREMITY Right 12/02/2018 Procedure: INCISION AND DRAINAGE WITH BONE BIOPSY OF RIGHT ISCHIUM; Surgeon: Rad Luque MD; Location: [facility] Main OR; Service: Orthopedic LAMINECTOMY DECOMP THORACIC MULTI LEVEL N/A 07/27/2016 Procedure: T1-2 THORACIC FUSION REVISION ; Surgeon: Kb Ramsey MD; Location: [facility] Main OR; Service: PEG TUBE INSERTION REVISION PAIN PUMP N/A 07/27/2016 Procedure: BACLOFEN PUMP REPLACEMENT ; Surgeon: Kb Ramsey MD; Location: [facility] Main OR; Service: SALIVARY GLAND SURGERY Family History Adopted: Yes Family history unknown: Yes Social History Socioeconomic History Marital status: Single Spouse name: Not on file Number of children: Not on file Years of education: Not on file Highest education level: Not on file Occupational History Not on file Social Needs Financial resource strain: Not on file Food insecurity Worry: Not on file Inability: Not on file Transportation needs Medical: Not on file Non-medical: Not on file Tobacco Use Smoking status: Never Smoker Smokeless tobacco: Never Used Substance and Sexual Activity Alcohol use: No Drug use: No Sexual activity: Not on file Lifestyle Physical activity Days per week: Not on file Minutes per session: Not on file Stress: Not on file Relationships Social connections Talks on phone: Not on file Gets together: Not on file Attends protestant service: Not on file Active member of club or organization: Not on file Attends meetings of clubs or organizations: Not on file Relationship status: Not on file Other Topics Concern Not on file Social History Narrative Not on file Allergies and Medications: Allergies: Allergies Allergen Reactions Levaquin [Levofloxacin] Rash, flushing with RUE arm swelling. Augmentin [Amoxicillin-Pot Clavulanate] Rash Lactose Intolerance [Lactase] Penicillins Other (See Comments) Blisters Ragweed Unknown Current meds: azithromycin 500 mg Intravenous Q24H cefePIMe (MAXIPIME) IVPB 1,000 mg Intravenous Q12H enoxaparin (LOVENOX) injection 40 mg Subcutaneous Daily lamoTRIgine 100 mg Tube BID lamoTRIgine 150 mg Tube BID levalbuterol 1.25 mg Nebulization TID levETIRAcetam 1,000 mg Tube BID pantoprazole 40 mg Tube Daily [START ON 09/21/2019] polyethylene glycol 17 g Tube QAM [START ON 09/21/2019] predniSONE 40 mg Tube Daily with breakfast senna-docusate 1 tablet Tube BID sodium chloride (PF) 5 mL Intravenous Q8H ISSAC vancomycin 750 mg Intravenous Q12H Data: Laboratory Data: [x] Pertinent lab data reviewed Radiology: [x] Images personally reviewed Microbiology: [x] Pertinent microbiology data reviewed Recent Labs 09/20/19 0757 PHART 7.38 ZLC3EPV 54.0* PO2ART 79* [id number] 96.7 RESPRATE 0 TIDALVOL 0 Recent Labs 09/19/19192809/20/19 0527 09/20/19 0757 WBC 14.83* 11.85* -- HGB 11.6* 10.5* 9.7* PLT 199 219 -- Recent Labs 09/19/19192709/20/19 0527 NA 147* 146* K 3.7 3.5 CL 100 103 BICARB 35* 30 BUN 15 12 CREATININE 0.32* 0.39* GLUCOSE 124* 126* MG -- 2.1 CALCIUM 10.1 9.4 No results for input(s): INR, PTT in the last 72 hours. Physical Exam: Temp: [98 F (36.7 C)-102 F (38.9 C)] 98.6 F (37 C) Heart Rate: [109-127] 117 Resp: [12-35] 35 BP: (93-113)/(50-75) 108/75 Intake/Output Summary (Last 24 hours) at 09/20/2019 1217 Last data filed at 09/20/2019 1101 Gross per 24 hour Intake 2949.35 ml Output 750 ml Net 2199.35 ml GENERAL: Non-verbal. HEENT: Normocephalic, atraumatic. Pupils equal, round and reactive. NECK: is supple. No stridor. HEART: Tachycardic. No murmurs, rubs or gallops. LUNGS: Diffuse bilateral rhonchi. ABDOMEN: Positive bowel sounds, soft, nontender, non-distended. PEG tube in place EXTREMITIES: No cyanosis, clubbing or edema in all 4 extremities. Chronic contractures in all 4 extremities. NEURO: Awake, alert. Does not follow commands. SKIN: grossly free of rash Associated attestation - Lalo Wellington DO - 09/20/2019 4:45 PM EST The patient was seen and examined with the house staff. I personally reviewed the radiographic images and laboratory data. I agree with the history, physical exam, and assessment and plan with the following comments. Reason for admission/consult/chief complaint: respiratory failure, sepsis, critical care management [] All other systems were reviewed and negative except for those as specified in History of Present illness. [x] Unable to obtain history or ROS secondary to clinical circumstances Baseline sbp: 90-100 Baseline HR: 100-110 Assessment/Plan: Acute on chronic hypoxemic (4-6LNC baseline), hypercapnic respiratory failure -secondary to pneumonia superimposed on respiratory muscle weakness from cerebral palsy. Antibiotics as outlined below, aggressive pulmonary hygiene, SPO2 goal 88-92%. Note patient has a BiPAP at home, does not tolerate and does not wear. Difficult airway sign to be posted above bed. If respiratory status declines and patient requires intubation will notify anesthesia to have 2 experienced providers present (intubated April 2016, required glide scope and bougie). Severe sepsis without shock (present on admission) secondary to pneumonia, suspect aspiration and patient has risk factors for MRSA and gram-negatives. Note negative influenza. Panculture, broad-spectrum antibiotics with atypical coverage. IVF resuscitation, blood pressure currently stable. Seizure disorder history of and currently exacerbated by acute illness. Guardian states patient has 23 seizures weekly. Continue home Keppra, Lamictal, CBD oil. Has diazepam as needed for breakthrough seizures per her home regimen. If seizure is persistent will ask neurology to assist. Cerebral palsy - has baclofen pump. DVT prophylaxis: enoxaparin Family updated: at bedside Goals of care: full code - confirmed with guardian 09/20/19. Lalo Wellington DO Pulmonary & Critical Care [facility] Associated Order(s): IP CONSULT TO DIETITIAN See initial assessment. Discussed on rounds. TF to start Casi De La Cruz RD, [facility] [phone] documented in this encounter Associated Order(s): IP CONSULT TO DIETITIAN Nutrition Care Initial Assessment Reason for visit: Physician Consult for initiate and manage TF Nutrition Diagnosis: Swallowing difficulty related to neurologic injury as evidenced by NPO TF dependent. Nutrition Intervention: Continue/ Modify Enteral Nutrition Nutrition Prescription: Diet: NPO Tube Feeding: Replete via: PEG @ 40 ml/ hour w/ 1 packet Beneprotein 2x/ day (provides 1010 kcal, 73 gm protein, 768 ml water) Additional free water: 65 ml/ hour Nutrition Goals: Pt will receive 80% of prescribed tube feeding volume Start Date:10/23/2019 Expected End Date:10/27/2019 Nutrition Education: No needs at this time Assessment: Pertinent clinical information: admitted w/ agitation, fever, sepsis, UTI, hypernatremia, hypovolemia, R ischial wound(chronic osteomyelitis s/p debridement 11/2018). Pt's mother reports wound care physician is recommending increased protein consumption for wound healing. Plans to add Beneprotein bid. Previous home TF regimen: Replete @ 60 ml/ hour x 15 hours followed by 60 ml free water x 9 hours. Suggest resumption of previous TF regimen on d/c w/ addition of 2 packets of Beneprotein/ day. Previous home free water for d/c may need to adjusted pending electrolyte trends. Past Medical History: Diagnosis Date Acute respiratory failure ([facility]) Due to MRSA pneumonia 04/2016; Allergic rhinitis Anoxic brain damage ([facility]) Aspiration, chronic pulmonary Bowel and bladder incontinence Cerebral palsy ([facility]) Chronic osteomyelitis of pelvic region, right ([facility]) 2018 required right ischial debridement, followed by Dr. Noland of plastics Chronic respiratory failure with hypoxia ([facility]) 3 L NC, followed by Dr. Stephy Cisse and Dr. Amalia Terry Constipation Epilepsy ([facility]) followed at [facility] neurology clinic GERD (gastroesophageal reflux disease) occasional vomiting with gagging MRSA (methicillin resistant Staphylococcus aureus) 04/2016 Bilateral lungs Muscle spasticity medically refractory and has baclofen pump since 1999, followed at [facility] neuro baclofen pump clinic Nonverbal Answers yes with very long blinks per adoptive parent PEG (percutaneous endoscopic gastrostomy) status ([facility]) Presence of intrathecal baclofen pump [address] 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 Urine retention occasional occurrence that requires straight cath periodically Wheelchair bound Height: 4' 6 Current weight: 37.6 kg (83 lb) BMI Body mass index is 20.01 kg/m . Weight hx: WT has been fairly stable. Suspect wt loss on admission r/t hypovolemia. Wt Readings from Last 5 Encounters: 10/21/19 37.6 kg (83 lb) 09/27/19 44 kg (97 lb) 06/29/19 41.7 kg (92 lb) 05/09/19 41.7 kg (92 lb) 05/04/19 42 kg (92 lb 8 oz) Current diet order: NPO Current intake does not meet estimated protein needs. Patient/family comments: Pt's mother provided recent home TF regimen. States the physician at the wound appointment suggested increasing her protein intake. Agreeable to addition of Beneprotein. 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 Physical Appearance: no overt s/s of malnutrition Labs: Recent Labs 10/23/19 0514 NA 151* K 4.8 BICARB 28 CL 109* GLUCOSE 127* BUN 9 CREATININE 0.29* Scheduled Meds: cefePIMe (MAXIPIME) IVPB 2,000 mg Intravenous Q8H enoxaparin (LOVENOX) injection 40 mg Subcutaneous Daily cannabidioL 3.2 mL Oral BID lamoTRIgine 100 mg Tube BID lamoTRIgine 150 mg Tube BID levETIRAcetam 1,000 mg Tube BID loratadine 10 mg Tube QAM metoprolol succinate 12.5 mg Oral Daily pantoprazole 40 mg Tube Daily polyethylene glycol 17 g Tube QAM Continuous Infusions: sodium chloride 0.9 % Estimated Energy Needs Total Energy Estimated Needs: 902-1025 kcal Method for Estimating Needs: 22-25 kcal/ kg (using UBW) Total Protein Estimated Needs: 61-81 gm protein Method for Estimating Needs: 1.5-2.0 gm/ kg using UBW Catalina Morales MS, RD, LD Associated Order(s): IP CONSULT TO CARE MANAGEMENT COMPLEX DISCHARGE Date: 10/22/2019 Time: 8:44 AM Patient Name: Claudine Joseph Date of : 1990 Sex: Female Discharge Planning Living Arrangements: Parent Support Systems: Parent Assistance Needed: (Total Care) Type of Residence: Private residence Prior to Admission Home Care Services: Yes Type of Current Home Care Services: Home health care, Oxygen, Other (Comment)(Infusion Pharmacy) Patient expects to be discharged to:: (Home w/ resumption of services) Does the patient need discharge transport arranged?: No Current Agency Name: Other([facility]) Current Home Equipment: Wheel chair, Hospital bed, Nebulizer, Oxygen Anticipated HME: None Anticipated Home Care Needs: Home health care, Oxygen Anticipated Facility Type: Home infusion, Home care Anticipated Discharge Plan Anticipated HME: None Anticipated Home Care Needs: Home health care, Oxygen Anticipated Facility Type: Home infusion, Home care [facility] Disposition D/C Disposition: Home Health Care Services Related to Current Admission?: No Agency/Destination: Other(Primary HHC) Home Care Needs : Home health care, Infusion Pharmacy, Oxygen Infusion Agency: [place] HME: None Same As Recommended : yes Transportation Type: Auto Reason for Choice: Currently with agency ASSOCIATE PROFESSOR OF THEOLOGY consulted for discharge needs. ASSOCIATE PROFESSOR OF THEOLOGY familiar with pt from prior admission. Per caregiver/guardian, Peg, the pt lives at home and has a hospital bed, shower bed that rolls, a track system on the ceiling to help move the pt, home oxygen (through [place] [facility]), suction, and nebulizer. The pt receives daily RN services through [facility] (information added to AVS) and tube feeds through [place] (information added to AVS). Pt will require updated ambulatory order and referral to [facility] upon discharge. If tube feeds remain the same, [facility] does not require new referral, only discharge paperwork. Peg to provide transport for pt. ASSOCIATE PROFESSOR OF THEOLOGY will await medical progression and will continue to follow. documented in this encounter Associated Order(s): IP CONSULT TO IV TEAM PICC team consulted to evaluate pt's clogged line. After arriving to room and attempting alternating pulse flushing/applying back pressure to the line it was able to be flushed and have a positive blood return. If there are any further problems with the line please re-consult the PICC team. documented in this encounter Associated Order(s): IP CONSULT TO CARE MANAGEMENT COMPLEX DISCHARGE Date: 02/14/2020 Time: 3:00 PM Patient Name: Claudine Joseph Date of : 1990 Sex: Female Discharge Planning Living Arrangements: Parent Support Systems: Parent Assistance Needed: yes Type of Residence: Private residence Prior to Admission Home Care Services: Yes Type of Current Home Care Services: (home health) Current Home Equipment: Wheel chair Anticipated HME: None Anticipated Home Care Needs: Home health care Anticipated Discharge Plan Anticipated HME: None Anticipated Home Care Needs: Home health care Consult to Care Management regarding Wound vac, d/c today. Pt discharged prior to Care Management discussing with pt or family. Associated Order(s): IP CONSULT TO DIETITIAN Nutrition Care Initial Assessment Reason for Completion: Physician/DIRECTOR OF GLOBAL SALES/PA Consult (TF initiate and manage) Nutrition Diagnosis: Swallowing difficulty related to neurologic injury as evidenced by NPO TF dependent at baseline. Nutrition Intervention/Recommendations: - Recommend Replete @ 40 ml/hr + 2 packets of Beneprotein/day. This provides 1010 kcal, 73 g protein, 1368 cc water/day. Free water: 20 ml/hr. This is the regimen she was on most recent hospitalization (09/2019). No TF orders from home available in hard chart. - Recommend replacing potassium. - Discussed with RN. - Nutrition Education: Not appropriate due to clinical presentation. Nutrition Prescription: Diet: Diet NPO Nutrition Goals: Receive >80% of TF goal Start Date:02/13/2020 Expected End Date:02/17/2020 Assessment: Pertinent Clinical Information: PMH includes: spastic cerebral palsy, quadriplegia, chronic respiratory failure, seizures, chronic wound with wound vac, PEG tube. Admitted with sepsis suspected to be r/t aspiration PNA. Pt/family comments: Deferred. ADDENDUM: RN reports patient's mother refused Beneprotein supplement d/t pt being lactose intolerant/causing bloating at home (Beneprotein is lactose free). Mother had been supplementing protein with with peanut butter via PEG tube. Current ht:4' 5 Current wt:.37.6 kg (83 lb) Body mass index is 20.77 kg/m . BMI Classification: Normal (18.5-24.9) Wt hx: Wt Readings from Last 5 Encounters: 02/12/20 37.6 kg (83 lb) 01/22/20 37.6 kg (83 lb) 10/21/19 37.6 kg (83 lb) 09/27/19 44 kg (97 lb) 06/29/19 41.7 kg (92 lb) Current PO intake does not meet estimated needs. Edema: generalized nonpitting per flowsheet Skin Integrity: no wounds documented per flowsheet GI Function: LBM 02/12 per flowsheet Nutrition-Focused Physical Exam: No overt s/sx of fat/muscle loss on visual exam. Labs: Recent Labs 02/13/20 0312 NA 145 K 2.8* BICARB 27 CL 109* GLUCOSE 93 BUN 9 CREATININE 0.24* No results found for: HGBA1C Scheduled Meds: acetylcysteine 4 mL Nebulization Q4H ISSAC cannabidioL 3.2 mL Tube BID heparin (porcine) 5,000 Units Subcutaneous Q8H ISSAC ipratropium-albuteroL 3 mL Inhalation Q4H ISSAC lamoTRIgine 100 mg Tube BID lamoTRIgine 150 mg Tube BID levETIRAcetam 1,000 mg Tube BID loratadine 10 mg Tube QAM montelukast 10 mg Tube Daily pantoprazole 40 mg Tube Daily piperacillin-tazobactam (ZOSYN) extended infusion 3.375 g Intravenous Q8H polyethylene glycol 17 g Tube QAM vancomycin 750 mg Intravenous Q12H Continuous Infusions: sodium chloride 0.9 % 75 mL/hr (02/13/20 021) Estimated Needs: Estimated Energy Needs Total Energy Estimated Needs: 940-1128 kcal Method for Estimating Needs: 25-30 kcal/kg actual wt Total Protein Estimated Needs: 56-75 g Method for Estimating Needs: 1.5-2 g/kg actual wt Assessed By: Narcisa Andrews RD, LD documented in this encounter Physical Therapy Physical Therapy Screen Upon review of the chart and discussion with and/or observation of the patient, no further skilled therapy intervention is indicated as pt is dependent on ADLs and all aspects of functional mobility. Uses a track floor-based lift at home and [id number] wheelchair. Screened by physical therapy no further needs indicated and nursing has been notified. Associated Order(s): IP CONSULT TO DIETITIAN Nutrition Care Initial Assessment Reason for visit: Physician Consult for TF initiation, management Nutrition Diagnosis: Swallowing difficulty related to conditions associated w/ dx (CP) as evidenced by need for EN. Nutrition Intervention: Initiate Enteral Nutrition Discussed pt w/ , RN Nutrition Prescription: Diet: NPO Tube Feeding: Impact per PEG @ 60ml/hr x 16 hrs (7a-11p), free water @60ml/hr x 8hrs (11p-7a). This will provide 960kcal, 53gm pro, 1298ml total free water meeting 100% pt's est'd kcal, pro needs. Nutrition Goals: Pt will receive 80% of estimated enteral nutrition goal Monitoring of above goal will occur: Start Date:09/24/2020 Expected End Date:09/28/2020 Nutrition Education: Not appropriate due to clinical presentation Assessment: Pertinent clinical information: Pt adm w/ need for placement while caregiver (mother) is hospitalized, incidental +covid finding - asymptmatic. Pt w/ history of spastic cerebral palsy, quadriplegia, chronic respiratory failure, seizures, decubitus ulcers with wound vac, chronic sage and PEG tube. Per EMR review of most recent hospitalization, pt's home TF was Promote @60x 16hrs, free water @ 60 x 8hrs w/ pt's mother reporting pt intolerance to Replete and Beneprotein at that time. Past Medical History: Diagnosis Date Acute respiratory failure (HCC) Due to MRSA pneumonia 04/2016; Allergic rhinitis Anoxic brain damage (HCC) Aspiration, chronic pulmonary Bowel and bladder incontinence Cerebral palsy (HCC) Chronic osteomyelitis of pelvic region, right (HCC) 2019 required right ischial debridement, followed by Dr. Noland of plastics Chronic respiratory failure with hypoxia ([facility]) 3 L NC, followed by Dr. Stephy Cisse and Dr. Amalia Terry Constipation Epilepsy ([facility]) followed at [facility] neurology clinic GERD (gastroesophageal reflux disease) occasional vomiting with gagging MRSA (methicillin resistant Staphylococcus aureus) 04/2016 Bilateral lungs Muscle spasticity medically refractory and has baclofen pump since 1999, followed at [facility] neuro baclofen pump clinic Nonverbal Answers yes with very long blinks per adoptive parent PEG (percutaneous endoscopic gastrostomy) status ([facility]) Presence of intrathecal baclofen pump [address] 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 Urine retention occasional occurrence that requires straight cath periodically Wheelchair bound Height: Current weight: 37.2 kg (82 lb 0.2 oz) BMI Body mass index is 19.77 kg/m . Weight hx: stable per EMR review Wt Readings from Last 5 Encounters: 09/23/20 37.2 kg (82 lb 0.2 oz) 08/13/20 36.3 kg (80 lb) 03/21/20 38.6 kg (85 lb) 02/12/20 37.6 kg (83 lb) 01/22/20 37.6 kg (83 lb) Estimated Energy Needs Total Energy Estimated Needs: 902-1107 Method for Estimating Needs: 22-27kcal/kg IBW (41kg) Total Protein Estimated Needs: 49-62 Method for Estimating Needs: 1.2-1.5gm/kg IBW Current diet order: NPO Difficulty Chewing/Swallowing: Yes Skin Integrity: PU rt buttock GI Function: LBM 09/24 Physical Appearance:FRANKLIN Labs: No results found for: HGBA1C? Recent Labs 09/24/20 0725 NA 138 K 3.8 BICARB 23 CL 105 GLUCOSE 99 BUN 15 CREATININE 0.31* Scheduled Meds: cholecalciferol (vitamin D3) 2,000 Units Tube Daily enoxaparin (LOVENOX) injection 40 mg Subcutaneous Daily famotidine 40 mg Tube Nightly lamoTRIgine 100 mg Tube BID lamoTRIgine 150 mg Tube BID levETIRAcetam 1,000 mg Tube BID loratadine 10 mg Tube QAM metoprolol tartrate 12.5 mg Tube BID montelukast 10 mg Tube Daily mulitvitamins w/ minerals 15 mL Tube QAM polyethylene glycol 17 g Tube QAM Continuous Infusions: none Due to the current COVID-19 infection precautions that are in place, this note was prepared without a bedside interview and nutrition-focused physical exam has been deferred at this time. Direct patient information was obtained via electronic communication or telephone conversations with patients and/or family when available, bedside nurse or other medical provider, Physician or YUDY. Cynthia Irby) HALEY Tidwell, LD Associated Order(s): ED CONSULT TO MEDICAL - COMMUNITY RELATIONS LIAISON DALJIT placed order for inpatient care management . Referrals have been sent and will need follow up to see if pt can be accepted. Delores Rodríguez MSW, DIRECTOR OF HEALTH EDUCATION Emergency Room Corporate Communications Specialist Vocera: ED Corporate Communications Specialist documented in this encounter Associated Order(s): IP CONSULT TO IV TEAM IV team consulted for Midline placement. Chart, history and IV medications reviewed. Midline insertion explained to patient. Agreed to procedure. Power Midline inserted under universal precautions into vein. Trimmed length 13cm. External length 0cm. Patient tolerated well. Flushes easily with good blood return. Lilly MUNOZ notified OK to use. documented in this encounter Associated Order(s): IP CONSULT TO IV TEAM IV team consulted for Midline placement. Chart, history and IV medications reviewed. Midline insertion explained to patient. 12cm Midline inserted under universal precautions into left basilic vein. Patient tolerated well. Flushes easily with good blood return. Primary RN notified OK to use. Associated Order(s): IP CONSULT TO DIETITIAN Nutrition Care Initial Assessment Reason for visit: Physician Consult for tube feed initiation and management Nutrition Diagnosis: Swallowing difficulty related to neurologic injury as evidenced by NPO TF dependent at baseline. Nutrition Intervention: Initiate Enteral Nutrition Nutrition Prescription: Diet: NPO Tube Feeding: In order to best reflect home feeds, suggest Impact 1.0 @ 65 mL/hr x16 hr. This will provide 1040 kcal/d, 58 g pro/d, and 886 mL free water/d. Suggest running free water @ 60 mL/hr remaining 8 hrs to provide an additional 480 mL free water for a total of 1366 mL free water/d Nutrition Goals: Pt will receive 80% of prescribed tube feeding volume Start Date:03/22/2020 Expected End Date:03/26/2020 Nutrition Education: No needs at this time Assessment: Pertinent clinical information: PMH of of spastic cerebral palsy, quadriplegia, chronic respiratory failure, seizures, decubitus ulcers with wound vac, chronic sage and Peg Tube with recent admission 02/12/20-02/14/20 for sepsis due to aspiration pneumonia who presented to [facility] with concern for sepsis by mother due to change in behavior. Found to have chronic hypoxic resp failure w/ h/o MRSA pneumonia and with restricted lung disease since then. On 4-5 L via NC, at baseline. Pt non-verbal at baseline. Has intrathecal baclofen pumb. Wound vac in place for chronic R buttock wound. Past Medical History: Diagnosis Date Acute respiratory failure (HCC) Due to MRSA pneumonia 04/2016; Allergic rhinitis Anoxic brain damage ([facility]) Aspiration, chronic pulmonary Bowel and bladder incontinence Cerebral palsy ([facility]) Chronic osteomyelitis of pelvic region, right ([facility]) 2019 required right ischial debridement, followed by Dr. Noland of plastics Chronic respiratory failure with hypoxia ([facility]) 3 L NC, followed by Dr. Stephy Cisse and Dr. Amalia Terry Constipation Epilepsy ([facility]) followed at [facility] neurology clinic GERD (gastroesophageal reflux disease) occasional vomiting with gagging MRSA (methicillin resistant Staphylococcus aureus) 04/2016 Bilateral lungs Muscle spasticity medically refractory and has baclofen pump since 1999, followed at [facility] neuro baclofen pump clinic Nonverbal Answers yes with very long blinks per adoptive parent PEG (percutaneous endoscopic gastrostomy) status ([facility]) Presence of intrathecal baclofen pump [address] 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 Urine retention occasional occurrence that requires straight cath periodically Wheelchair bound Height: 4' 5 Current weight: 38.6 kg (85 lb) Body mass index is 21.28 kg/m . Weight hx: Mother reports pt UBW around 81-85#. Wt Readings from Last 10 Encounters: 03/21/20 38.6 kg (85 lb) 02/12/20 37.6 kg (83 lb) 01/22/20 37.6 kg (83 lb) 10/21/19 37.6 kg (83 lb) 09/27/19 44 kg (97 lb) 06/29/19 41.7 kg (92 lb) 05/09/19 41.7 kg (92 lb) 05/04/19 42 kg (92 lb 8 oz) 02/01/19 43.1 kg (95 lb) 12/02/18 40.8 kg (89 lb 15.2 oz) Current diet order: NPO/TF Recent intake: NPO and TF not initiated yet. Current intake likely does not meet estimated needs. Patient/family comments: Mother reports that she typically receives 4 containers of Promote per day via pump. She runs this at 60 mL/hr (~16 hr per day) and runs free water after this remainder of the day (~8 hrs). She typically starts her feeds around 7/8 AM depending when she wakes up. Sometimes, she will run half of the feeds in the morning and the other half at the end of the day if she has something to do during the day. Mother reports that she would not like pt to receive Replete (the equivalent to Promote) as she has had a bad reaction to this in the past. Discussed Beneprotein with mother, and she reports that it has lactose in it and that pt can't have it. Informed her that Beneprotein does not contain lactose but mother reports she has seen it on the label and that pt has had discomfort with it in the past. Agreeable to Impact. Pt has not received this in the past per mother. Difficulty Chewing/Swallowing: Yes Skin Integrity: chronic wound R buttock- wound vac in place GI Function: LBM 03/21; diarrhea Physical Appearance: no signs or symptoms of malnutrition Nutrition Focus Physical Exam Type: Visual Labs: Recent Labs 03/22/20 0447 NA 145 K 4.0 BICARB 27 CL 104 GLUCOSE 88 BUN 11 CREATININE 0.34* Scheduled Meds: cefTRIAXone (ROCEPHIN) IVPB 1,000 mg Intravenous Q24H cholecalciferol (vitamin D3) 2,000 Units Tube Daily enoxaparin (LOVENOX) injection 40 mg Subcutaneous Daily ipratropium 0.5 mg Inhalation BID lamoTRIgine 100 mg Tube BID lamoTRIgine 150 mg Tube BID levETIRAcetam 10 mg/kg Tube BID loratadine 10 mg Tube QAM montelukast 10 mg Tube Daily polyethylene glycol 17 g Tube QAM Continuous Infusions: lactated Ringers 50 mL/hr (03/22/20 0700) sodium chloride 0.9 % Estimated Energy Needs Total Energy Estimated Needs: 965-1160 kcal/d Method for Estimating Needs: 25-30 kcal/kg CBW Total Protein Estimated Needs: 58-77 g/d Method for Estimating Needs: 1.5-2 g/kg CBW Marily Espinal RD, LD documented in this encounter Associated Order(s): IP CONSULT TO IV TEAM IV team consulted for PICC placement. Chart and History reviewed. PICC insertion explained to patient and mother. Agreed to procedure. Single lumen PICC inserted following universal protocol into right basilic vein. PICC trimmed at 32cm. External length at 0 cm. Patient tolerated well. PICC okay to use as tip is confirmed in lower SVC per ECG technology - maximum P wave and absence of negative deflection. Invasive Line Insertion Checklist followed. Flushes easily with good blood return. Primary RN notified OK to use. documented in this encounter Care Teams (unrecognized sec tion and content) Subway Conductor Relationship Specialty Start Date End Date Colette Goode MD [address] [place] [address]111 PCP - General Family Medicine 05/24/15 Subway Conductor Relationship Specialty Start Date End Date Colette Goode MD [address] [place] [address] 12147 PCP - General Family Medicine 05/24/15 Subway Conductor Relationship Specialty Start Date End Date Colette Goode MD [address] [place] [address] PCP - General Family Medicine 05/24/15 Subway Conductor Relationship Specialty Start Date [place] Colette Goode MD [id number] [place] [address] 88146 PCP - General Family Medicine 05/24/15 Subway Conductor Relationship Specialty Start Date End Date Colette Goode MD [address] [place] [address] PCP - General Family Medicine 05/24/15 Subway Conductor Relationship Specialty [place] [address] [place] [address] PCP - General Family Medicine 05/24/15 Subway Conductor Relationship Specialty [place] [address] [place] [address] PCP - General Family Medicine 05/24/15 Subway Conductor Relationship Specialty Start Date End [place] Colette Goode MD [id number] [place] [address] [place] [address] PCP - General Family Medicine 05/24/15 Subway Conductor Relationship Specialty Start Date End [place] Colette Goode MD [id number] [place] [address] [place] [address] PCP - General Family Medicine 05/24/15 Subway Conductor Relationship Specialty Start Date End Date Colette Goode MD [id number] [place] [address] [place] [address] PCP - General Family Medicine 05/24/15 Subway Conductor Relationship Specialty [place] [address] [place] [address] PCP - General Family Medicine 05/24/15 Subway Conductor Relationship Specialty [place] [address] [place] [address] PCP - General Family Medicine 05/24/15 Subway Conductor Relationship Specialty Start Date End Date Colette Goode MD [id number] [place] [address] [place] [address] PCP - General Family Medicine 05/24/15 Subway Conductor Relationship Specialty [place] [address] [place] [address] PCP - General Family Medicine 05/24/15 Subway Conductor Relationship Specialty Start Date [place] Colette Goode MD [id number] [place] [address] PCP - General Family Medicine 05/24/15 Subway Conductor Relationship Specialty Start Date End [place] Colette Goode MD [id number] [place] [address] 98175 PCP - General Family Medicine 05/24/15 Subway Conductor Relationship Specialty Start Date End Date Colette Goode MD [id number] [place] [address] 247[address] PCP - General Family Medicine 05/24/15 Subway Conductor Relationship Specialty Start Date End [place] Colette Goode MD [id number] [place] [address] 278[address] PCP - General Family Medicine 02/16/19 Subway Conductor Relationship Specialty Start Date End Date Colette Goode MD [id number] [place] [address] 414[address] PCP - General Family Medicine 05/24/15 Subway Conductor Relationship Specialty Start Date End Date Colette Goode MD [id number] [place] [address] PCP - General Family Medicine 02/16/19 Subway Conductor Relationship Specialty Start Date End Date Marielle Duque MD PCP - General Internal Medicine 01/14/22 Subway Conductor Relationship Specialty Start Date End Date Marielle Duque MD [address] [place] [address] PCP - General Internal Medicine 01/14/22 Subway Conductor Relationship Specialty Start Date End Date Marielle Duque MD [address] [place] [address] PCP - General Internal Medicine 01/14/22 Subway Conductor Relationship Specialty Start Date End Date Marielle Duque MD [address] [place] [address] PCP - General Internal Medicine 01/14/22 Subway Conductor Relationship Specialty Start Date End Date Marielle Duque MD [address] [place] [address] PCP - General Internal Medicine 01/14/22 Subway Conductor Relationship Specialty Start Date End Date Marielle Duque MD [address] [place] [address] PCP - General Internal Medicine 01/14/22 Subway Conductor Relationship Specialty Start Date End Date Marielle Duque MD [address] [place] [address] PCP - General Internal Medicine 01/14/22 Subway Conductor Relationship Specialty Start Date End Date Marielle Duque MD [address] [place] [address] PCP - General Internal Medicine 01/14/22 Subway Conductor Relationship Specialty [place] [address] [place] [address] PCP - General Family Medicine 05/24/15 01/13/22 Marielle Duque MD [address] [place] [address] PCP - General Internal Medicine 01/14/22 Subway Conductor Relationship Specialty [place] [address] [place] [address] PCP - General Family Medicine 05/24/15 01/13/22 Marielle Duque MD [address] [place] [address] PCP - General Internal Medicine 01/14/22 Subway Conductor Relationship Specialty [place] [address] [place] [address] PCP - General Family Medicine 05/24/15 01/13/22 Marielle Duque MD [address] [place] [address] PCP - General Internal Medicine 01/14/22 Subway Conductor Relationship Specialty Start Date End Date Marielle Duque MD [address] [place] [address] PCP - General Internal Medicine 01/14/22 Subway Conductor Relationship Specialty Start Date End Date Marielle Duque MD [address] [place] [address] PCP - General Internal Medicine 01/14/22 Subway Conductor Relationship Specialty Start Date End Date Marielle [place] [address] PCP - General Internal Medicine 01/14/22 Subway Conductor Relationship Specialty Start Date End [place] [address] PCP - General Internal Medicine 01/14/22 Subway Conductor Relationship Specialty Start Date End Date Marielle Duque MD [address] [place] [address] PCP - General Internal Medicine 01/14/22 Subway Conductor Relationship Specialty Start Date End Date Marielle Duque MD [address] [place] [address] PCP - General Internal Medicine 01/14/22 Subway Conductor Relationship Specialty Start Date End Date Marielle Duque MD [address] [place] [address] PCP - General Internal Medicine 01/14/22 Subway Conductor Relationship Specialty Start Date End Date Marielle Duque MD [address] [place] [address] PCP - General Internal Medicine 01/14/22 Subway Conductor Relationship Specialty Start Date End Date Marielle Duque MD [address] [place] [address] PCP - General Internal Medicine 01/14/22 Subway Conductor Relationship Specialty Start Date End Date Marielle Duque MD [address] [place] [address] PCP - General Internal Medicine 01/14/22 Subway Conductor Relationship Specialty Start Date End Date Marielle Duque MD [address] [place] [address] PCP - General Internal Medicine 01/14/22 Subway Conductor Relationship Specialty Start Date End Date Marielle Duque MD [address] [place] [address] PCP - General Internal Medicine 01/14/22 Subway Conductor Relationship Specialty Start Date End Date Marielle Duque MD [address] [place] [address] PCP - General Internal Medicine 01/14/22 Subway Conductor Relationship Specialty Start Date End Date Marielle Duque MD [address] [place] [address] PCP - General Internal Medicine 01/14/22 Subway Conductor Relationship Specialty Start Date End Date Marielle Duque MD [address] [place] [address] PCP - General Internal Medicine 01/14/22 Subway Conductor Relationship Specialty Start Date End Date Marielle Duque MD [address] [place] [address] PCP - General Internal Medicine 01/14/22 Subway Conductor Relationship Specialty Start Date End Date Marielle Duque MD [address] [place] [address] PCP - General Internal Medicine 01/14/22 Subway Conductor Relationship Specialty Start Date End Date Marielle Duque MD [address] [place] [address] PCP - General Internal Medicine 01/14/22 Subway Conductor Relationship Specialty Start Date End Date Marielle Duque MD [address] [place] [address] PCP - General Internal Medicine 01/14/22 Subway Conductor Relationship Specialty Start Date End Date Marielle Duque MD [address] [place] [address] PCP - General Internal Medicine 01/14/22 Subway Conductor Relationship Specialty Start Date End Date Marielle Duque MD [address] [place] [address] PCP - General Internal Medicine 01/14/22 Subway Conductor Relationship Specialty Start Date End Date Marielle Duque MD [address] [place] [address] PCP - General Internal Medicine 01/14/22 Subway Conductor Relationship Specialty Start Date End Date Marielle Duque MD [address] [place] [address] PCP - General Internal Medicine 01/14/22 Subway Conductor Relationship Specialty Start Date End Date Marielle Duque MD [address] [place] [address] PCP - General Internal Medicine 01/14/22 Subway Conductor Relationship Specialty Start Date End Date Marielle Duque MD [address] [place] [address] PCP - General Internal Medicine 01/14/22 Subway Conductor Relationship Specialty Start Date End Date Marielle Duque MD [address] [place] [address] PCP - General Internal Medicine 01/14/22 Subway Conductor Relationship Specialty Start Date End Date Marielle Duque MD [address] [place] [address] PCP - General Internal Medicine 01/14/22 Subway Conductor Relationship Specialty Start Date End Date Marielle Duque MD [address] [place] [address] PCP - General Internal Medicine 01/14/22 Stephy Cisse MD [address] [place] [address] Dr Lundy [address] [place] [address] Consulting Physician Pulmonary Disease 06/30/24 Subway Conductor Relationship Specialty Start Date End Date Marielle Duque MD [address] [place] [address] PCP - General Internal Medicine 01/14/22 Stephy Cisse MD [address] [place] [address] Dr Lundy [address] [place] [address] Consulting Physician Pulmonary Disease 06/30/24 Subway Conductor Relationship Specialty Start Date End Date Marielle Duque MD [address] [place] [address] PCP - General Internal Medicine 01/14/22 Stephy Cisse MD [address] [place] [address] [place] [address] Consulting Physician Pulmonary Disease 06/30/24 Subway Conductor Relationship Specialty Start Date End Date Marielle Duque MD [address] [place] [address] PCP - General Internal Medicine 01/14/22 Stephy Cisse MD [address] [place] [address] [place] [address] Consulting Physician Pulmonary Disease 06/30/24 Subway Conductor Relationship Specialty Start Date End Date Marielle Duque MD [address] [place] [address] PCP - General Internal Medicine 01/14/22 Stephy Cisse MD [address] [place] [address] [place] [address] Consulting Physician Pulmonary Disease 06/30/24 Subway Conductor Relationship Specialty Start Date End Date Marielle Duque MD [address] [place] [address] PCP - General Internal Medicine 01/14/22 Stephy Cisse MD [address] [place] [address] [place] [address] Consulting Physician Pulmonary Disease 06/30/24 Subway Conductor Relationship Specialty Start Date End Date Marielle Duque MD [address] [place] [address] PCP - General Internal Medicine 01/14/22 Stephy Cisse MD [address] [place] [address] [place] [address] Consulting Physician Pulmonary Disease 06/30/24 Subway Conductor Relationship Specialty Start Date End Date Marielle Duque MD [address] [place] [address] PCP - General Internal Medicine 01/14/22 Stephy Cisse MD [address] [place] [address] [address] Consulting Physician Pulmonary Disease 06/30/24 Subway Conductor Relationship Specialty Start Date End Date Marielle Duque MD [address] [place] [address] PCP - General Internal Medicine 01/14/22 Stephy Cisse MD [address] [place] [address] [address] Consulting Physician Pulmonary Disease 06/30/24 Team Status: Active Member Role/Relationship Status Dates Dr. Colette Goode MD Primary Care Provider Activ e Team Status: Active Member Role/Relationship Status Dates Dr. Colette Goode MD Primary Care Provider Activ e Start: March 14, 2025 Dr. Colette Goode MD Referring Provider Active Start: March 14, 2025 STACIE Stahl Other Provider Active Start: Shannan guaajrdo 2024 Jaimee Marshall COMPREHENSIVE OPHTHALMOLOGIST, COMPREHENSIVE OPHTHALMOLOGIST-C Attending Provider Active Start: March 14, 2025 Jaimee Marshall COMPREHENSIVE OPHTHALMOLOGIST, COMPREHENSIVE OPHTHALMOLOGIST-C Other Provider Active S tart: March 14, 2025 Team Status: Active Member Role/Relationship Status Dates Dr. Colette Goode MD Primary Care Provider Activ e Start: March 22, 2025 Dr. Colette Goode MD Referring Provider Active Start: March 22, 2025 STACIE Stahl Attending Provider Active Star t: March 22, 2025 STACIE Stahl Other Provider Active Start: 2024 Jaimee Marshall COMPREHENSIVE OPHTHALMOLOGIST, COMPREHENSIVE OPHTHALMOLOGIST-C Other Provider Active S tart: March 22, 2025 Team Status: Inactive Member Role/Relationship Status Dates Dr. Colette Goode MD Primary Care Provider Activ e Start: March 29, 2025 End: March 29, 2025 Dr. Colette Goode MD Referring Provider Active Start: March 29, 2025 End: March 29, 2025 STACIE Stahl Other Provider Active Start: 2024 End: March 29, 2025 Jaimee Marshall COMPREHENSIVE OPHTHALMOLOGIST, COMPREHENSIVE OPHTHALMOLOGIST-C Attending Provider Active Start: March 29, 2025 End: March 29, 2025 Team Status: Active Member Role/Relationship Status Dates Dr. Colette Goode MD Primary Care Provider Activ e Start: March 29, 2025 Dr. Colette Goode MD Referring Provider Active Start: March 29, 2025 STACIE Stahl Attending Provider Active Star t: March 29, 2025 STACIE Stahl Other Provider Active Start: 2024 Jaimee Marshall COMPREHENSIVE OPHTHALMOLOGIST, COMPREHENSIVE OPHTHALMOLOGIST-C Other Provider Active S tart: March 29, 2025 Team Status: Active Member Role/Relationship Status Dates Dr. Colette Goode MD Primary Care Provider Activ e Start: April 05, 2025 Dr. Colette Goode MD Referring Provider Active Start: April 05, 2025 STACIE Stahl Other Provider Active Start: A 2024 Jaimee Marshall COMPREHENSIVE OPHTHALMOLOGIST, COMPREHENSIVE OPHTHALMOLOGIST-C Attending Provider Active Start: April 05, 2025 Team Status: Active Member Role/Relationship Status Dates Dr. Colette Goode MD Primary Care Provider Activ e Start: April 05, 2025 STACIE Stahl Attending Provider Active Star t: April 05, 2025 STACIE Stahl Referring Provider Active Star t: April 05, 2025 Team Status: Active Member Role/Relationship Status Dates Dr. Colette Goode MD Primary Care Provider Activ e Start: April 05, 2025 Dr. Colette Goode MD Referring Provider Active Start: April 05, 2025 STACIE Stahl Attending Provider Active Star t: April 05, 2025 Onelia Gaspar , [place] Other Provider Active Start: A ugust , 2025 Jaimee Marshall COMPREHENSIVE OPHTHALMOLOGIST, COMPREHENSIVE OPHTHALMOLOGIST-C Other Provider Active S tart: April 05, 2025 Team Status: Inactive Member Role/Relationship Status Dates Dr. Colette Goode MD Primary Care Provider Activ e Start: April 06, 2025 End: April 06, 2025 Dr. Nino Shaver MD Emergency Provider Active S tart: April 06, 2025 End: April 06, 2025 Team Status: Inactive Member Role/Relationship Status Dates Dr. Colette Goode MD Primary Care Provider Activ e Start: April 05, 2025 End: April 05, 2025 STACIE Stahl Attending Provider Active Star t: April 05, 2025 End: April 05, 2025 STACIE Stahl Referring Provider Active Star t: April 05, 2025 End: April 05, 2025 Team Status: Inactive Member Role/Relationship Status Dates Dr. Colette Goode MD Primary Care Provider Activ e Start: April 05, 2025 End: April 05, 2025 STACIE Stahl Attending Provider Active Star t: April 05, 2025 End: April 05, 2025 STACIE Stahl Referring Provider Active Star t: April 05, 2025 End: April 05, 2025 Team Status: Active Member Role/Relationship Status Dates Dr. Colette Goode MD Primary Care Provider Activ e Start: April 05, 2025 Dr. Colette Goode MD Referring Provider Active Start: April 05, 2025 STACIE Stahl Attending Provider Active Star t: April 05, 2025 STACIE Stahl Other Provider Active Start: A 2024 Jaimee Marshall COMPREHENSIVE OPHTHALMOLOGIST, COMPREHENSIVE OPHTHALMOLOGIST-C Other Provider Active S tart: April 05, 2025 Team Status: Inactive Member Role/Relationship Status Dates Dr. Colette Goode MD Primary Care Provider Activ e Start: April 06, 2025 End: April 06, 2025 Dr. Nino Shaver MD Attending Provider Active S tart: April 06, 2025 End: April 06, 2025 Dr. Nino Shaver MD Emergency Provider Active S tart: April 06, 2025 End: April 06, 2025 Team Status: Active Member Role/Relationship Status Dates Dr. Colette Goode MD Primary Care Provider Activ e Start: 2025 Dr. Colette Goode MD Referring Provider Active Start: 2025 STACIE Stahl Attending Provider Active Star t: 2025 STACIE Stahl Other Provider Active Start: A ugust 2024 Jaimee Marshall COMPREHENSIVE OPHTHALMOLOGIST, COMPREHENSIVE OPHTHALMOLOGIST-C Other Provider Active S tart: 2025 Team Status: Inactive Member Role/Relationship Status Dates Dr. Colette Goode MD Primary Care Provider Activ e Start: April 19, 2025 End: April 29, 2025 Dr. Colette Goode MD Referring Provider Active Start: April 19, 2025 End: April 29, 2025 STACIE Stahl Other Provider Active Start: A 2024 End: April 29, 2025 Jaimee Marshall COMPREHENSIVE OPHTHALMOLOGIST, COMPREHENSIVE OPHTHALMOLOGIST-C Attending Provider Active Start: April 19, 2025 End: April 29, 2025 Team Status: Active Member Role/Relationship Status Dates Dr. Colette Goode MD Primary Care Provider Activ e Start: April 19, 2025 Dr. Colette Goode MD Referring Provider Active Start: April 19, 2025 STACIE Stahl Attending Provider Active Star t: April 19, 2025 STACIE Stahl Other Provider Active Start: A 2024 Jaimee Marshall COMPREHENSIVE OPHTHALMOLOGIST, COMPREHENSIVE OPHTHALMOLOGIST-C Other Provider Active S tart: April 19, 2025 Team Status: Active Member Role/Relationship Status Dates Dr. Colette Goode MD Primary Care Provider Activ e Start: May 01, 2025 Dr. Shima Krishnamurthy MD Attending Provider Active Start: May 01, 2025 Dr. Shima Krishnamurthy MD Referring Provider Active Start: May 01, 2025 STACIE Stahl Other Provider Active Start: S eptember 2024 Team Status: Active Member Role/Relationship Status Dates Dr. Colette Goode MD Primary Care Provider Activ e Start: May 03, 2025 Dr. Colette Goode MD Referring Provider Active Start: May 03, 2025 STACIE Stahl Other Provider Active Start: S eptember 2024 Jaimee Marshall COMPREHENSIVE OPHTHALMOLOGIST, COMPREHENSIVE OPHTHALMOLOGIST-C Attending Provider Active Start: May 03, 2025 Team Status: Active Member Role/Relationship Status Dates Dr. Colette Goode MD Primary Care Provider Activ e Start: May 03, 2025 Dr. Colette Goode MD Referring Provider Active Start: May 03, 2025 STACIE Stahl Other Provider Active Start: S eptember 2024 Jaimee Marshall COMPREHENSIVE OPHTHALMOLOGIST, COMPREHENSIVE OPHTHALMOLOGIST-C Other Provider Active S tart: May 03, 2025 Dr. Uziel Inman MD Attending Provider Active Start: May 03, 2025 Team Status: Inactive Member Role/Relationship Status Dates Dr. Colette Goode MD Primary Care Provider Activ e Start: May 07, 2025 End: May 07, 2025 Dr. Shima Krishnamurthy MD Attending Provider Active Start: May 07, 2025 End: May 07, 2025 Dr. Shima Krishnamurthy MD Referring Provider Active Start: May 07, 2025 End: May 07, 2025 Team Status: Inactive Member Role/Relationship Status Dates Dr. Colette Goode MD Primary Care Provider Activ e Start: May 01, 2025 End: May 01, 2025 Dr. Shima Krishnamurthy MD Attending Provider Active Start: May 01, 2025 End: May 01, 2025 Dr. Shima Krishnamurthy MD Referring Provider Active Start: May 01, 2025 End: May 01, 2025 STACIE Stahl Other Provider Active Start: 2024 End: May 01, 2025 Team Status: Active Member Role/Relationship Status Dates Dr. Colette Goode MD Primary Care Provider Activ e Start: May 03, 2025 Dr. Colette Goode MD Referring Provider Active Start: May 03, 2025 STACIE Stahl Other Provider Active Start: S [id number] Jaimee Marshall COMPREHENSIVE OPHTHALMOLOGIST, COMPREHENSIVE OPHTHALMOLOGIST-C Other Provider Active S tart: May 03, 2025 Dr. Uziel Inman MD Attending Provider Active Start: May 03, 2025 Team Status: Inactive Member Role/Relationship Status Dates Dr. Colette Goode MD Primary Care Provider Activ e Start: May 07, 2025 End: May 07, 2025 Dr. Shima Krishnamurthy MD Attending Provider Active Start: May 07, 2025 End: May 07, 2025 Dr. Shima Krishnamurthy MD Referring Provider Active Start: May 07, 2025 End: May 07, 2025 Team Status: Active Member Role/Relationship Status Dates Dr. Colette Goode MD Primary Care Provider Activ e Start: May 10, 2025 Dr. Colette Goode MD Referring Provider Active Start: May 10, 2025 STACIE Stahl Other Provider Active Start: 2024 Jaimee Marshall NP, COMPREHENSIVE OPHTHALMOLOGIST-C Attending Provider Active Start: May 10, 2025 Team Status: Active Member Role/Relationship Status Dates Dr. Colette Goode MD Primary Care Provider Activ e Start: May 10, 2025 Dr. Colette Goode MD Referring Provider Active Start: May 10, 2025 STACIE Stahl Attending Provider Active Star t: May 10, 2025 STACIE Stahl Other Provider Active Start: 2024 Jaimee Marshall NP, COMPREHENSIVE OPHTHALMOLOGIST-C Other Provider Active S tart: May 10, 2025 Team Status: Inactive Member Role/Relationship Status Dates Dr. Colette Goode MD Primary Care Provider Activ e Start: May 14, 2025 End: May 14, 2025 Dr. Shima Krishnamurthy MD Attending Provider Active Start: May 14, 2025 End: May 14, 2025 Dr. Shima Krishnamurthy MD Referring Provider Active Start: May 14, 2025 End: May 14, 2025 PRN Active and Recently Administ ered Medications (unrecognized section and content) Medication Order 11/15/2021 11/16/2021 11/17/2021 ciprofloxacin (CIPRO) 400 mg in dextrose 5% premix IVPB (COMPLETED) 400 mg, Intravenous, Administer over 60 Minutes, EARLY CHILDHOOD DIRECTOR TO PROCEDURE, 1 dose, Starting on Wed11/17/21 at 1332, Until Wed11/17/21 at 1407, Other, for cholangitis prophylaxis in ERCP, Pre-op/Pre-Proc 1407 (Given - Provid er: MIKE Taylor) fentaNYL (SUBLIMAZE) injection 12.5 mcg 12.5 mcg, Intravenous, Administer over 2 Minutes, EVERY 30 MINUTES NEEDED, 4 doses, Starting on Wed11/17/21 at 1601, Until Wed11/17/21 at 1829, Mild Pain, Recovery Continuous Medication Order 12/20/2021 12/21/2021 12/22/2021 lactated ringers IV solution Intravenous, at 20 mL/hr, CONTINUOUS, Starting on Wed12/22/21 at 0815, Until Wed12/22/21 at 1014, Pre-op/Pre-Proc 0815 (Canceled Entry - Provider: System Discharge - Comment: Automatically canceled at discontinue of medication order) PRN Medication Order 12/20/2021 12/21/2021 12/22/2021 diphenhydrAMINE (BENADRYL) injection 12.5 mg 12.5 mg, Intravenous, EVERY 30 MINUTES NEEDED, 2 doses, Starting on Wed12/22/21 at 0735, Until Wed12/22/21 at 1146, Itching, FIRST Line, Use second dose only if first dose did not result in confusion . Do not give if age is > 65yo, Recovery hydrALAZINE (APRESOLINE) injection 5 mg 5 mg, Intravenous, EVERY 15 MINUTES NEEDED, Starting on Wed12/22/21 at 0735, Until Wed12/22/21 at 1146, SECOND line HTN, For SBP > 180 Use if HR < 60. Administer over 2 minutes. May give a total of 20 mg while in PACU. Notify MD if BP still uncontrolled after 2 mg and no other antihypertensive agents are ordered., Recovery HYDROmorphone (DILAUDID) injection 0.2 mg(Linked Group 1) 0.2 mg, Intravenous, EVERY 5 MINUTES NEEDED, Starting on Wed12/22/21 at 0734, Until Wed12/22/21 at 1146, Moderate Pain, Severe Pain, Use as initial dose. Higher dose may be administered if lower dose did not result in adverse effects (RR<10, decrease in level of consciousness) and was previously documented as ineffective. May give a total of 4mg in PACU., Recovery HYDROmorphone (DILAUDID) injection 0.5 mg(Linked Group 1) 0.5 mg, Intravenous, EVERY 5 MINUTES NEEDED, Starting on Wed12/22/21 at 0734, Until Wed12/22/21 at 1146, Moderate Pain, Severe Pain, Higher dose may be administered if lower dose did not result in adverse effects (RR<10, decrease in level of consciousness) and was previously documented as ineffective. Decrease back to lower dose if patient has adverse effects, or no PRN used in previous 30 minutes. May give a total of 4mg in PACU ., Recovery labetalol (NORMODYNE) injection 5 mg 5 mg, Intravenous, EVERY 15 MINUTES NEEDED, Starting on Wed12/22/21 at 0734, Until Wed12/22/21 at 1146, FIRST line HTN. , For SBP > 160 Hold if HR < 60 and give SECOND line agent. May give a total of 20 mg while in PACU. If blood pressure uncontrolled after 20mg of labetalol administered, use second line agent or notify MD. For vials: labetalol should be treated as a SINGLE USE VIAL. Discard remaining contents after one use., Recovery lidocaine 1% buffered in sodium bicarbonate 1-8.4 % injection SOSY 1 mL 1 mL, Intradermal, NEEDED, Starting on Wed12/22/21 at 0800, Until Wed12/22/21 at 1146, Other, for peripheral IV insertions in endoscopy, Pre-op/Pre-Proc ondansetron 4mg/2ml (ZOFRAN) injection 4 mg 4 mg, Intravenous, ONCE NEEDED, 1 dose, Starting on Wed12/22/21 at 0734, Until Wed12/22/21 at 1146, Nausea / Vomiting, FIRST line antiemetic, Do not administer within 6 hours of intra-operative dose., Recovery promethazine (PHENERGAN) injection 6.25 mg 6.25 mg, Intravenous, EVERY 1 HOUR NEEDED, 2 doses, Starting on Wed12/22/21 at 0734, Until Wed12/22/21 at 1146, Nausea / Vomiting, SECOND line antiemetic, Do not administer within 6 hours of intra-operative dose. Extravasation Risk. If given via IV route: dilute dose with 10mL normal saline and inject through a running IV or line over 5 minutes OR if no active IV or line is saline-dwelled dilute dose with 20mL normal saline and administer over 5 minutes. AVOID Intra-arterial administration; necrosis & gangrene have resulted. Hand, wrist or foot veins SHOULD BE AVOIDED., Recovery Linked Groups Order Group 1: HYDROmorphone (DILAUDID) injection 0.2 mgJump to med 0.2 mg, Intravenous, EVERY 5 MINUTES NEEDED, Starting on Wed12/22/21 at 0734, Until Wed12/22/21 at 1146, Moderate Pain, Severe Pain
Use as initial dose. Higher dose may be administered if lower dose did not result in adverse effects (RR<10, decrease in level of consciousness) and was previously documented as ineffective. May give a total of 4mg in PACU.
Recovery Or HYDROmorphone (DILAUDID) injection 0.5 mgJump to med 0.5 mg, Intravenous, EVERY 5 MINUTES NEEDED, Starting on Wed12/22/21 at 0734, Until Wed12/22/21 at 1146, Moderate Pain, Severe Pain
Higher dose may be administered if lower dose did not result in adverse effects (RR<10, decrease in level of consciousness) and was previously documented as ineffective. Decrease back to lower dose if patient has adverse effects, or no PRN used in previous 30 minutes. May give a total of 4mg in PACU .
Recovery Scheduled Medication Order 07/19/2022 07/20/2022 07/21/2022 cholecalciferol (vitamin D3) tablet 2,000 Units 2,000 Units, Tube, Daily, First dose on Wed07/15/22 at 0900 1017 (Given - Provider: Yohan Zabala RN) 0851 (Given - Provider: Nava Lam RN) 0952 (Given - Provider: BÁRBARA QUICK) EPIDIOLEX (cannabidioL) Oral Solution 350 mg (100mg/mL) 350 mg (3.5 mL), G-tube, 2 times daily, First dose on Wed07/15/22 at 0030, OK to use home supply Hazardous Drug. Refer to [facility] Hazardous Drug List on [employer] for Additional Information. Cannabidiol (EPIDIOLEX) is FDA approved for seizures., Drug Name: cannabidiol, Form: Solution, Dose: 350, Dose Units: mg, Length of Therapy: Indefinite, How soon needed? (normally 72 hrs needed to procure): 0-24 hrs, Reason for Non-Formulary: home med 1019 (Given - Provider: Yohan Zabala RN)2127 (Given - Provider: Viv Ricketts RN) 0851 (Given - Provider: Nava Lam RN)2104 (Given - Provider: Brenda De La Rosa RN) 0952 (Given - Provider: BÁRBARA QUICK)2111 (Given - Provider: Brenda De La Rosa RN) famotidine (PEPCID) injection 20 mg (CANCELED) 20 mg, Intravenous, 2 times daily, First dose on Wed07/16/22 at 0900, Aseptically dilute dose of famotidine injection with 0.9% NaCl to a total volume of either 5 ml or 10 ml and inject over 2 minutes. 1019 (Given - Provider: Yohan Zabala RN)2125 (Given - Provider: Viv Ricketts RN) lamoTRIgine (LAMICTAL) tablet 250 mg 250 mg, Tube, 2 times daily, First dose on Wed07/15/22 at 0900 1018 (Given - Provider: Yohan Zabala RN)2125 (Given - Provider: Viv Ricketts RN) 0851 (Given - Provider: Nava Lam RN)2109 (Given - Provider: Brenda De La Rosa RN) 09 (Given - Provider: BÁRBARA QUICK)2111 (Given - Provider: Brenda De La Rosa RN) levETIRAcetam (KEPPRA) injection 1,000 mg (COMPLETED) 1,000 mg, Intravenous, Once, On Wed07/19/22 at 2200, For 1 dose, IV Push in undiluted syringe at a rate of 500 mg/min for doses 1500mg or less 2125 (Given - Provider: Viv Ricketts RN) levETIRAcetam (KEPPRA) solution 1,000 mg 1,000 mg, Tube, 2 times daily, First dose on Wed07/15/22 at 0900 1018 (Given - Provider: Yohan Zabala RN)2127 (Given - Provider: Viv Ricketts RN) 0851 (Given - Provider: Nava Lam RN)2109 (Given - Provider: Brenda De La Rosa RN) 0952 (Given - Provider: BÁRBARA QUICK)2111 (Given - Provider: Brenda De La Rosa RN) linezolid (ZYVOX) IVPB 600 mg (premix) (CANCELED) 600 mg, Intravenous, at 300 mL/hr, Every 12 hours, First dose on Wed07/17/22 at 0500, Indication: Other: (specify), 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 trama) 0534 (New Bag - Provider: Kerry Escalera RN)1703 (New Bag - Provider: Yohan Zabala RN) 0707 (New Bag - Provider: Brenda De La Rosa, RN) loratadine (CLARITIN) tablet 10 mg 10 mg, Tube, Every morning, First dose on Wed07/15/22 at 0900 1017 (Given - Provider: Yohan Zabala RN) 0852 (Given - Provider: Nava Lam RN) 0952 (Given - Provider: BÁRBARA QUICK) montelukast (SINGULAIR) tablet 10 mg 10 mg, Tube, Daily, First dose on Wed07/15/22 at 0900 1017 (Given - Provider: Yohan Zabala RN) 0851 (Given - Provider: Nava Lam RN) 0952 (Given - Provider: BÁRBARA QUICK) pantoprazole (PROTONIX) injection 40 mg 40 mg, Intravenous, Daily, First dose on Wed07/15/22 at 0900, Dilute each vial with 10 mL of 0.9% NaCl. 1019 (Given - Provider: Yohan Zabala RN) 0852 (Given - Provider: Nava Lam RN) 0952 (Given - Provider: BÁRBARA QUICK) piperacillin-tazobactam (ZOSYN) IVPB 3.375 g (premix) (CANCELED) 3.375 g, Intravenous, at 12.5 mL/hr, Every 8 hours, First dose on Wed07/17/22 at 1400, Start infuse 3 hours after loading dose of Zosyn 4.5 gm VESICANT, Indication: Sepsis of Unknown Origin 0001 (New Bag - Provider: Kerry Escalera RN)1046 (New Bag - Provider: Yohan Zabala RN)1820 (New Bag - Provider: Yohan Zabala RN) 0217 (New Bag - Provider: Brenda De La Rosa, TAMMY) piperacillin-tazobactam (ZOSYN) IVPB 3.375 g (premix) 3.375 g, Intravenous, at 12.5 mL/hr, Every 8 hours, First dose (after last modification) on Wed07/20/22 at 1000, Start infuse 3 hours after loading dose of Zosyn 4.5 gm VESICANT, Indication: Sepsis of Unknown Origin 1158 (New Bag - Provider: Nava Lam RN)1803 (New Bag - Provider: Nava Lam RN) 0151 (New Bag - Provider: Brenda De La Rosa RN)1015 (New Bag - Provider: BÁRBARA QUICK)1710 (New Bag - Provider: BÁRBARA QUICK) polyethylene glycol (MIRALAX) powder 17 g 17 g, Tube, Every morning, First dose on Wed07/15/22 at 0900 0900 (Not Given - Provider: Yohan Zabala RN - Reason: Patient/family refused) 0900 (Not Given - Provider: Nava Lam RN - Reason: Other - Comment: 07/20) 0952 (Given - Provider: BÁRBARA QUICK) sodium chloride (PF) (NS) flush 10 mL 10 mL, Intracatheter, Every 8 hours scheduled, First dose on Wed07/20/22 at 1515, Flush Midline when not in use. 1728 (Given - Provider: Nava Lam RN)2200 (Canceled Entry - Provider: Brenda De La Rosa RN) 0600 (Canceled Entry - Provider: Brenda De La Rosa RN)1710 (Given - Provider: BÁRBARA QUICK)2112 (Given - Provider: Brenda De La Rosa RN) sodium chloride (PF) (NS) flush 5 mL(Linked Group 1) 5 mL, Intravenous, Every 8 hours scheduled, First dose on Wed07/15/22 at 0600, Saline lock 0600 (Canceled Entry - Provider: Kerry Escalera RN)1400 (Canceled Entry - Provider: Yohan Zabala, TAMMY)2130 (Given - Provider: Viv Ricketts RN) 0600 (Canceled Entry - Provider: Brenda De La Rosa RN)1400 (Not Given - Provider: Nava Lam RN - Reason: Other - Comment: antibiotic running)2200 (Canceled Entry - Provider: Brenda De La Rosa RN) 0600 (Canceled Entry - Provider: Brenda De La Rosa RN)1400 (Given - Provider: BÁRBARA QUICK)2200 (Canceled Entry - Provider: Brenda De La Rosa RN) PRN Medication Order 07/19/2022 07/20/2022 07/21/2022 acetaminophen (TYLENOL) solution 650 mg 650 mg, Tube, Every 4 hours PRN, fever 100.4 F or greater, headaches, mild pain, Starting on Wed07/15/22 at 0025 1639 (Given - Provider: Yohan Zabala RN) 2317 (Given - Provider: Brenda De La Rosa RN) diazePAM (VALIUM) syringe 2.5 mg (CANCELED) 2.5 mg, Intravenous, Every 6 hours PRN, other, seizures, Starting on Lenka 07/16/22 at 0235, VESICANT 0957 (Given - Provider: Yohan Zabala RN) diazePAM (VALIUM) syringe 5 mg 5 mg, Intravenous, Every 6 hours PRN, other, seizures, Starting on 07/19/22 at 1149, VESICANT 2022 (Given - Provider: Brenda De La Rosa RN) diphenhydrAMINE (BENADRYL) 12.5 mg/5 mL liquid 12.5 mg (CANCELED) 12.5 mg, Tube, Every 8 hours PRN, Please give prior to vancomycin administration., Starting on Lenka 07/16/22 at 0214 1018 (Given - Provider: Yohan Zabala RN) guaiFENesin (ROBITUSSIN) 100 mg/5 mL syrup 200 mg 200 mg, Tube, 3 times daily PRN, cough, Starting on Wed07/15/22 at 0025 HYDROmorphone (PF) (DILAUDID) injection 0.5-1.5 mg 0.5-1.5 mg, Intravenous, Every 3 hours PRN, moderate to severe pain, Starting on Wed07/15/22 at 2100, [] Initiate with 1 mg every 3 hours prn moderate to severe pain. [] For unrelieved pain, may give additional 0.5 mg within 30 minutes of initial dose. [] If pain is RELIEVED after repeat dose, change to 1.5 mg every 3 hours prn moderate to severe pain. [] If pain is UNrelieved after repeat dose or patient requires dose reduction, call physician. [] May use IV for breakthrough or if unable to tolerate oral route. implantable pump 1 each 1 each, Intrathecal, As needed, spasticity, Starting on Lenka 07/16/22 at 0756, #Do Not Chart On This Order# This is order is for reference only. New pump placed 07/15/22 and refilled here (see order hx), Does the patient have an implanted pump? Yes, Medication Details: Baclofen, Source of Information: chart, Provide who refills pump: Dr. Estuardo Moncada ipratropium (ATROVENT) 0.02 % nebulizer solution 0.5 mg 0.5 mg, Inhalation, Every 4 hours PRN (RT), shortness of breath, Starting on Wed07/15/22 at 0025 lidocaine 1% (PF) (XYLOCAINE-MPF) 10 mg/mL (1 %) injection 1 mL 1 mL, Intradermal, Once as needed, For Midline placement, if patient has no known Lidocaine allergy., Starting on 07/20/22 at 1428, For 1 dose naloxone (NARCAN) injection 0.1 mg(Linked Group 2) 0.1 mg, Intravenous, As needed, opioid reversal, For respiratory rate less than or equal to 8 per minute., Starting on Wed07/15/22 at 2100, Mix nalOXone (NARCAN) 0.4 mg (1mL) with 9 mL of Normal Saline to total 10 mL. Administer 0.1 mg (2.5mL) IV Push every 2 minutes until respiratory rate is 10 or greater. naloxone (NARCAN) injection 0.4 mg(Linked Group 2) 0.4 mg, Intravenous, As needed, opioid reversal, patient is pulseless, breathless, and unresponsive, Starting on Wed07/15/22 at 2100, Call a code first, then administer naloxone dose undiluted IV Push over 30 seconds. ondansetron (ZOFRAN) injection 4 mg(Linked Group 3) 4 mg, Intravenous, Every 6 hours PRN, nausea, vomiting, Starting on Wed07/15/22 at 0025, Use oral route first, if tolerated. ondansetron (ZOFRAN) injection 4 mg(Linked Group 4) 4 mg, Intravenous, Every 6 hours PRN, nausea, vomiting, Starting on Wed07/15/22 at 2100, Oral or IV - use oral route if tolerated ondansetron (ZOFRAN-ODT) disintegrating tablet 4 mg(Linked Group 3) 4 mg, Oral, Every 6 hours PRN, nausea, vomiting, Starting on Wed07/15/22 at 0025, Use oral route first, if tolerated. Formulation requires tablet remain in sealed package until immediately prior to dose being administered. ondansetron (ZOFRAN-ODT) disintegrating tablet 4 mg(Linked Group 4) 4 mg, Oral, Every 6 hours PRN, nausea, vomiting, Starting on Wed07/15/22 at 2100, Oral or IV - use oral route if tolerated Formulation requires tablet remain in sealed package until immediately prior to dose being administered. oxyCODONE (ROXICODONE) solution 5 mg 5 mg, Tube, Every 4 hours PRN, moderate to severe pain, Starting on Lenka 07/16/22 at 1157 0152 (Given - Provider: Brenda De La Rosa RN)2112 (Given - Provider: Brenda De La Rosa RN) sodium chloride (PF) (NS) flush 10-20 mL 10-20 mL, Intracatheter, As needed, line care, Flush Midline with 10ml before and after each use, and with 20ml after blood draws and transfusions., Starting on 07/20/22 at 1428 sodium chloride (PF) (NS) flush 5 mL(Linked Group 1) 5 mL, Intravenous, As needed, line care, Starting on Wed07/15/22 at 0539 sodium chloride 0.9% (NS)(Linked Group 1) 0-150 mL/hr, Intravenous, As needed, To flush line after IV infusions when no maintenance IV ordered or a compatibility issue. Infuse 20ml at the same rate as the secondary infusion, Starting on Wed07/15/22 at 0539, Run as Primary IV. NOT intended for KVO. 0653 (New Bag - Provider: Brenda De La Rosa RN) 0151 (New Bag - Provider: Brenda De La Rosa RN) Linked Groups Order Group 1: Saline lock IV (CANCELED) Routine, Continuous, Starting on Wed07/15/22 at 0540, Until Specified And sodium chloride (PF) (NS) flush 5 mLJump to med 5 mL, Intravenous, As needed, line care, Starting on Wed07/15/22 at 0539 And sodium chloride (PF) (NS) flush 5 mLJump to med 5 mL, Intravenous, Every 8 hours scheduled, First dose on Wed07/15/22 at 0600
Saline lock
And sodium chloride 0.9% (NS)Jump to med 0-150 mL/hr, Intravenous, As needed, To flush line after IV infusions when no maintenance IV ordered or a compatibility issue. Infuse 20ml at the same rate as the secondary infusion, Starting on Wed07/15/22 at 0539
Run as Primary IV. NOT intended for KVO.
Group 2: naloxone (NARCAN) injection 0.1 mgJump to med 0.1 mg, Intravenous, As needed, opioid reversal, For respiratory rate less than or equal to 8 per minute., Starting on Wed07/15/22 at 2100
Mix nalOXone (NARCAN) 0.4 mg (1mL) with 9 mL of Normal Saline to total 10 mL. Administer 0.1 mg (2.5mL) IV Push every 2 minutes until respiratory rate is 10 or greater.
And Notify physician (CANCELED) STAT, Until discontinued, Starting on Wed07/15/22 at 2101, Until Specified
Respiratory rate less than: 8
For respiratory rate less than or equal to 8, notify physician and/or appropriate staff for additional orders. And naloxone (NARCAN) injection 0.4 mgJump to med 0.4 mg, Intravenous, As needed, opioid reversal, patient is pulseless, breathless, and unresponsive, Starting on Wed07/15/22 at 2100
Call a code first, then administer naloxone dose undiluted IV Push over 30 seconds.
Group 3: ondansetron (ZOFRAN-ODT) disintegrating tablet 4 mgJump to med 4 mg, Oral, Every 6 hours PRN, nausea, vomiting, Starting on Wed07/15/22 at 0025
Use oral route first, if tolerated. Formulation requires tablet remain in sealed package until immediately prior to dose being administered.
Or ondansetron (ZOFRAN) injection 4 mgJump to med 4 mg, Intravenous, Every 6 hours PRN, nausea, vomiting, Starting on Wed07/15/22 at 0025
Use oral route first, if tolerated.
Group 4: ondansetron (ZOFRAN-ODT) disintegrating tablet 4 mgJump to med 4 mg, Oral, Every 6 hours PRN, nausea, vomiting, Starting on Wed07/15/22 at 2100
Oral or IV - use oral route if tolerated Formulation requires tablet remain in sealed package until immediately prior to dose being administered.
Or ondansetron (ZOFRAN) injection 4 mgJump to med 4 mg, Intravenous, Every 6 hours PRN, nausea, vomiting, Starting on Wed07/15/22 at 2100
Oral or IV - use oral route if tolerated
Goals (unrecognized section and content) Goals may be documented in a n alternate sectionGoals may be documented in an alternate sectionGoals may be documented in an alternate sectionGoals may be documented in an alternate sectionGoals may be documented in an alternate sectionGoals may be documented in an alternate sectionGoals may be documented in an alternate section FOR RECORDS PERTAINING TO PATIENTS WHO ARE OR HAVE BEEN ENROLLED IN A CHEMICAL DEPENDENCY/SUBSTANCEABUSE PROGRAM, SOME INFORMATION MAY BE OMITTED. This clinical summary was aggregated from multiple sources. Caution should be exercised in using it in the provision of clinical care. This summary normalizes information from multiple sources, and as a consequence, information in this document may materially change the coding, format and clinical context of patient data. In addition, data may be omitted in some cases. CLINICAL DECISIONS SHOULD BE BASED ON THE PRIMARY CLINICAL RECORDS. [facility]. provides no warranty or guarantee of the accuracy or completeness of information in this document.
--- NOTE | 2025-05-20 17:25 | ED.RN ---
Per Dr. Oh, we can cancel sepsis screen
[2025-05-20 18:10] LABS: Mucous, Urine 0 SEEN /hpf (<or=2+)
[2025-05-20 18:22] LABS: Color, Urine Yellow (Yellow); Glucose, Dipstick Normal (Normal); Ketone-Dipstick Negative (Negative); Leukocyte Esterase-Dipstick 500 /ul (Negative); Nitrite-Dipstick Negative (Negative); Occult Blood-Urine 250 /ul (Negative); Protein-Dipstick 100 mg/dl (Negative); Specific Gravity, Urine 1.010 (1.002-1.030); Urine Bilirubin Dipstick Negative (Negative)
[2025-05-20 18:24] LABS: Hematocrit 37.2 % (37-47); Hemoglobin 11.1 g/dL (12.0-15.0); Immature Granulocytes Count 0.060 X10^3/uL (0.0-0.0); Mean Corp Hgb Conc 29.8 g/dL (32-36); Mean Corpuscular Volume 91.6 fL (81-99); Mean Platelet Vol. 10.2 fl (6.2-12.0); NRBC Flagged by Analyzer 0 % (0-5); Platelet Count 290 K/mm3 (150-450); RBC Distribution Width CV 15.0 % (11.6-14.6); RBC Distribution Width SD 50.6 fl (35.1-43.9); Red Blood Count 4.06 M/mm3 (4.2-5.4); White Blood Count 13.2 K/mm3 (4.4-11.0)
[2025-05-20] MEDS: 0.9% Normal Saline (500mL Bag) 500 ML 999 ML IV (18:31)
[2025-05-20 18:56] LABS: Red Blood Cells-Urine 5-10 SEEN /hpf (0-5); Squamous Epithelial Cells - UA 0-5 SEEN /hpf (5-10)
[2025-05-20 19:35] LABS: Anion Gap 16 (5-15); BUN 78 mg/dL (4-19); BUN/Creat Ratio 25.1 RATIO (10-20); Calcium,Total 9.3 mg/dL (7.6-11.0); Carbon Dioxide 25.2 mmol/L (21.0-32.0); Chloride 97 mmol/L (98-108); Glucose 103 mg/dL (70-99)
[2025-05-20 19:39] LABS: Potassium 6.0 mmol/L (3.3-5.1)
--- NOTE | 2025-05-20 19:39 | EKG12_ITS ---
Test Reason : DYSRHYTHMIA Blood Pressure : */* mmHG Vent. Rate : 97 BPM Atrial Rate : 97 BPM P-R Int : 146 ms QRS Dur : 78 ms QT Int : 344 ms P-R-T Axes : 50 85 51 degrees QTcB Int : 436 ms Normal sinus rhythm Normal ECG Confirmed by LISSETH ANDINO, GARLAND ([id number]), commercial production editor GERI PHAM ([id number]) on 05/21/2025 8:00:20 AM Referred By: Confirmed By: GARLAND MONTANEZ MD
--- NOTE | 2025-05-20 19:39 | CT_ITS ---
PROCEDURE: ABDOMEN/PELVIS WITHOUT CONT 05/20/2025 REASON FOR EXAM: DAE, DECREASAED URINE PRODUCTION TECHNIQUE: Procedure Code: CTABDPEL Modality: CT Procedure: ABDOMEN/PELVIS WITHOUT CONT Noncontrast technique limits evaluation of the abdominal and pelvic viscera. Coronal and Sagittal reconstruction series were provided. One or more dose reduction techniques were used (e.g., Automated exposure control, adjustment of the mA and/or kV according to patient size, use of iterative reconstruction technique). RADIATION DOSE SUMMARY: CTDlvol: 9.05 mGy DLP: 402.52 mGycm COMPARISON: CT abdomen/pelvis April 06, 2025. FINDINGS: Study limitations: Diagnostic evaluation for inflammatory change, bowel wall thickening, mass, lymphadenopathy, injury, viscera and vasculature is compromised on this study without any contrast. Evaluation of paraspinal, abdominal and parapelvic soft tissues is compromised by metallic streak artifact from indwelling hardware. Lung bases: Ground-glass and reticular opacities at the visualized lung bases may be due to atelectasis, scarring or pneumonitis. Clinical correlation with pulmonary symptoms. Trace amount of pleural fluid at the costophrenic angles. Liver: Hepatic length is 19.3 cm. Evaluation of hepatic parenchyma is limited without contrast. Hepatic attenuation is consistent with steatosis. 9 mm hypodense hepatic lesion noted posteriorly within the left lobe, too small to further characterize. Clinical correlation with risk factors. If there is high risk or known history of malignancy, consider pre and postcontrast imaging, preferably a dynamic MRI. Gallbladder/biliary: Surgical clips seen in the gallbladder fossa. No fluid collection in the gallbladder fossa. Pancreas: No pancreatic inflammation. Spleen: The spleen is not enlarged. Adrenals: The adrenal glands are within normal limits. Kidneys/ureters: There is no hydronephrosis. Nonobstructive multiple right-sided caliceal calculi noted. Evaluation of renal parenchyma is limited without contrast. Gastrointestinal: No hiatal hernia. Evaluation for bowel wall and fold thickening is compromised on this study, secondary to lack of any contrast. There may have been gastric fundoplication. Clinical correlation is advised. The stomach is not sufficiently distended to evaluate wall thickening. An anterior percutaneous gastrostomy tube has its balloon inflated within the stomach. No perigastric inflammation or fluid collection. No appearance of a small bowel obstruction. No focal mesenteric inflammation. Air-fluid levels within portions of the colon. This could be abnormal and could be correlated with symptoms and causes of diarrhea. Consider diagnostic analysis of diarrheal fluid as clinically appropriate. No pericolonic inflammation. No evidence of acute diverticulitis. Soft tissue thickening at the anorectal junction to be correlated for perianal inflammatory disease. Irregularity of the posterior skin surface along the anus extending anteroinferior early to the body suggesting soft tissue ulceration and/or cellulitis. Soft tissue abscess can not be assessed on this study without contrast. Appendix: The appendix is not identified. Clinical correlation is advised. Peritoneal/retroperitoneal: No free intraperitoneal air. No free fluid is seen. Vascular: No abdominal aortic aneurysm or retroperitoneal hematoma. Vascular patency can not be assessed on this study. Lymph nodes: Evaluation for lymphadenopathy is compromised without contrast. No visible pathologic appearing lymph nodes by short axis size criteria. Urinary bladder: The urinary bladder is not diagnostically assessed as it is decompressed by a Myles catheter. Bladder mass or cystitis to be correlated clinically. For further evaluation if indicated consider cystogram or cystoscopy. Reproductive: Evaluation of pelvic viscera and adnexa is limited. No dominant cystic adnexal mass seen. If there are pelvic symptoms consider ultrasound. Soft tissues: Skin thickening and soft tissue irregularity extending to the right ischial tuberosity measuring nearly 10 cm in length consistent with severe decubitus ulcer. This is similar to the prior exam. Abscesses not evaluated without contrast. Osseous: There is loss of bone at the right ischial tuberosity likely representing chronic osteomyelitis. If there is suspicion for active osteomyelitis consider MRI. Severe scoliosis. No acute fracture. Spinal fixation hardware noted. If there is suspicion for infected hardware in this patient consider nuclear medicine white blood cell scan. CT/Abdomen/Pelvis without Cont IMPRESSION: Gastrointestinal findings to be correlated clinically are discussed above in de tail. - Severe right-sided ischial decubitus ulcer contacting the bony cortex of the is chium. Osteomyelitis is suspected. - Multiple other findings and study limitations discussed above. Reading Location: [id number]
[2025-05-20] MEDS: 0.9% Normal Saline (1000mL) 1,000 ML 150 ML IV (20:16)
[2025-05-20] MEDS: Albuterol *CONC* 2.5mg/0.5mL VIAL.NEB. 10 MG INHALATION (20:18)
[2025-05-20] MEDS: Insulin Lispro 10 UNIT in Syringe 0 ML 6 UNIT IV (20:24)
[2025-05-20] MEDS: Acetaminophen 650 MG/20 ML UDC 325 MG JT (21:01)
[2025-05-20] MEDS: levETIRAcetam Oral Solution 500 MG/5 ML 1500 MG GT (21:16)
--- NOTE | 2025-05-20 21:30 | HP.PCM.HOS_ITS ---
HPI - General General Date of Admission: 05/20/25 Date of Service: 05/20/25 Chief Complaint: Decreased UOP, recent URI sxs. 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, seizure disorder, fecal/urinary incontinence with feeding tube and chronic indwelling Myles catheter, Chronic normocytic anemia who presents to the [facility] ED on 05/20/2025 with history of decreased urine output currently on IV antibiotics at home via PICC line specifically Zosyn for her wounds with wound care following with worsening urine output starting the day prior with no UOP purported on day of presentation, reportedly tolerating tube feeds which are continuous with hourly flushes with no fevers however did have a recent URI type illness with some increased congestions and secretions over the last 2 days but no increased oxygen needs prompting ED evaluation. Workup in the ED included T97.7, heart rate 89, BP 102/74, respiratory rate 16, 100% on 2 L nasal cannula with most recent repeat vitals heart rate 108, BP 107/69, respiratory rate 22, 100% on room air, CBC with WBC 13.2, hemoglobin 0.1, MCV 91.6, platelet 290 with left shift, BMP with potassium 6.0 not noted to be hemolyzed, chloride 97, anion gap 16, BUN/creatinine 78/3.12, glucose 103, urinalysis noted to be cloudy, protein 100, occult blood 250, negative nitrite, leukocyte esterase 500, urine RBCs 5-10, urine WBC 10-25 with 3+ urine bacteria, CT abdomen and pelvis with severe right- sided ischial decubitus ulcer containing the bony cortex of the ischium with osteitis suspected likely chronic, air-fluid levels within portions of the colon, soft tissue thickening at the anorectal junction, irregularity posterior skin surface along the anus extending anterior inferiorly. In the ED patient administered Tylenol 3 25 mg per G-tube, Cathflo for her access PICC, albuterol and elation x 1, maintenance IV fluid, dextrose, insulin 10 units IV x 1 as well as lamotrigine 150 mg per G-tube and Keppra 1500 mg per G-tube x 1. FOR[facility] Medical History GERD (gastroesophageal reflux disease) Allergic rhinitis Seizure disorder Chronic indwelling Myles catheter Decubitus ulcer of sacral area Decubitus ulcer of right buttock, stage 4 Malnutrition Anemia Celiac disease Quadriplegic infantile cerebral palsy Home Medications ?Medication ?Instructions ?Recorded ?Last Taken ?Type acetaminophen 325 mg tablet (Aphen) 325 mg PO Q6H PRN fever or pain 03/14/25 Unknown History albuterol (refill) 90 mcg inhalation 03/14/25 Unkn own History mcg/actuation aerosol inhaler amikacin 1,000 mg/4 mL injection 250 mg IM Q12H Unknown History solution baclofen 50 mcg/mL intrathecal 50 mcg intrathecal Q24H 03/14/25 Unknown History solution diazepam (Valtoco) 15 mg intranasal Q4H 5 Unknown History diazepam 2 mg tablet 2 mg PO DAILY 03/14/25 Unkno wn History doxycycline monohydrate 100 mg 100 mg PO BID 03/14/25 Unknown History capsule fluconazole 100 mg tablet 100 mg PO DAILY 03/14/25 Unk nown History (Diflucan) fluticasone propionate 50 2 spray intranasal DAILY PRN nasal 03/14/25 Unknown History mcg/actuation nasal congestion spray,suspension (Aller-Kenny) ibuprofen 200 mg tablet (IBU-200) 200 mg PO Q8H Unknown History levetiracetam 100 mg/mL oral 1,500 mg PO Q12H 03/14/25 Unknown History solution loratadine 10 mg tablet 10 mg PO DAILY 03/14/25 Unkn own History medroxyprogesterone 150 mg/mL 150 mg IM QMONTH 5 Unknown History intramuscular suspension (Depo-Provera) omeprazole 40 mg capsule,delayed 40 mg PO DAILY Unknown History release polyethylene glycol 3350 17 17 g PO DAILY 03/14/25 Unk nown History gram/dose oral powder (ClearLax) promethazine 12.5 mg rectal 12.5 mg NV Q6H nausea 02/27 02/21 Unknown History suppository singular 03/14/25 Unknown History tramadol 50 mg tablet 50 mg PO DAILY 03/14/25 Unkn own History linezolid 100 mg/5 mL oral 400 mg (20 mL) PO BID 14 da ys #560 04/12/25 Unknown Rx suspension mL lamotrigine 150 mg tablet 150 mg PO BID 05/20/25 Unkno wn History Allergy/AdvReac Type Severity Reaction Status Date / Time cefdinir Allergy Intermediate Fever and Verified 05/20/25 14:53 skin rash ciprofloxacin (From Cipro) Allergy Intermediate Rash Verified 05/20/25 14:53 Penicillins (PCN) AdvReac Blisters Verified 05/20/25 14:53 adopted (Unknown maternal/paternal family history.) Surgical History (Updated 05/20/25 @ 22:[address] Darleen Garcias MD) S/P gastrostomy History of back surgery Status post insertion of intrathecal baclofen pump History of tonsillectomy and adenoidectomy S/P cholecystectomy Social History household members: family Smoking Status: Never smoker alcohol intake: never substance use type: does not use ROS Review of Systems ROS Unobtainable: due to mental condition and due to mental status Vital Signs Vital Signs Vital Signs: 05/20/25 14:53 05/20/25 15:00 05/20/25 16:58 Temperature 97.7 F L 97.7 F L 97.7 F L Temperature Source Axillary Axillary Axillary Pulse Rate 89 89 85 Respiratory Rate 16 16 16 Respiratory Pattern Blood Pressure 102/74 102/74 102/74 Blood Pressure Mean 83 83 83 Pulse Ox 100 100 100 Oxygen Delivery Method Nasal Cannula Nasal Cannula Oxygen Flow Rate (L/min) 2 2 05/20/25 17:17 05/20/25 17:26 05/20/25 19:08 Temperature Temperature Source Pulse Rate 81 104 H Respiratory Rate 16 19 H Respiratory Pattern Blood Pressure Blood Pressure Mean Pulse Ox 100 98 100 Oxygen Delivery Method Nasal Cannula Nasal Cannula Oxygen Flow Rate (L/min) 2 05/20/25 19:49 05/20/25 20:18 05/20/25 20:57 Temperature Temperature Source Pulse Rate 83 101 H 108 H Respiratory Rate 16 18 22 H Respiratory Pattern Normal Blood Pressure 107/69 Blood Pressure Mean 81 Pulse Ox 99 100 Oxygen Delivery Method Room Air Room Air Oxygen Flow Rate (L/min) Physical Exam Narrative Physical Examination: General: Patient is quadriplegic, noncommunicative, awake but unable to answer any questions, seated upright in ED bed with no obvious distress. Skin: Normal color, normal turgor, no icterus, no cyanosis except occasional stage ecchymoses, abrasion, chronic decubitus ulcers with dressings in place. HEENT: AT/NC, EOMI, PERRLA, dry MM, no carotid bruits or JVD noted. Lungs: Diminished, greater bases, mildly increased respiratory rate but no distress, no appreciated rales, ronchi or wheezing. Heart: Mildly tachycardic with regular rhythm; no gallop, rub audible. Abdomen: Soft, protruding abdomen, no grimacing with palpation, G-tube in place, baclofen pump to the left lower abdomen, mildly hyperactive BS, mildly tympanitic/distended which is chronic, no obvious HSM. Extremities: No cyanosis, no clubbing, contractures noted, peripheral pulses intact. Neurological: Patient is quadriplegic, noncommunicative, awake but unable to answer any questions, seated upright in ED bed with no obvious distress, cognitive function significantly impaired baseline, pupils equally reactive to light and accommodation, difficult to assess cranial nerves given quadriplegia status, strength severely globally decreased. Psychiatric: Affect appears flat, no acute evidence of depressive or anxiety feelings. Results Lab / Micro Data 05/20/25 18:15 05/20/25 18:15 Labs: Laboratory Results - last 24 hr 05/20/25 18:05: Urine Color Yellow, Urine Clarity Sl. Cloudy, Urine pH 6.5, Ur Specific [place] 1.010, Urine Protein 100 H, Urine Glucose (UA) Normal, Urine Ketones Negative, Urine Occult Blood 250 H, Urine Nitrite Negative, Urine Bilirubin Negative, Urine Urobilinogen Normal, Ur Leukocyte Esterase 500 H, Urine RBC 5-10 SEEN, Urine WBC 10-25 SEEN, Ur Squamous Epith Cells 0-5 SEEN, Ur Renal Epithelial Cell 0-5 SEEN, Urine Bacteria 3+, Urine Mucus 0 SEEN 05/20/25 18:15: WBC 13.2 H, RBC 4.06 L, Hgb 11.1 L, Hct 37.2, MCV 91.6, MCH 27.3, MCHC 29.8 L, RDW Std Deviation 50.6 H, RDW Coeff of Chad 15.0 H, Plt Count 290, MPV 10.2, Immature Gran % (Auto) 0.500, Neut % (Auto) 78.6 H, Lymph % (Auto) 9.5 L, [place] % (Auto) 9.9, Eos % (Auto) 1.0, Baso % (Auto) 0.5, Absolute Neuts (auto) 10.4 H, Absolute Lymphs (auto) 1.25, Nucleated RBC % 0, Sodium 139, Potassium 6.0 H*, Chloride 97 L, Carbon Dioxide 25.2, Anion Gap 16 H, BUN 78 H, Creatinine 3.12 H, Est GFR (MDRD) Non-Af 19 L, BUN/Creatinine Ratio 25.1 H, G lucose 103 H, Calcium 9.3 Imaging Radiology Impression Abdomen/Pelvis CT 05/20/25 19:39 IMPRESSION: Gastrointestinal findings to be correlated clinically are discussed above in detail. - Severe right-sided ischial decubitus ulcer contacting the bony cortex of the ischium. Osteomyelitis is suspected. - Multiple other findings and study limitations discussed above. 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, seizure disorder, fecal/urinary incontinence with feeding tube and chronic indwelling Myles catheter, Chronic normocytic anemia who presents to the [facility] ED on 05/20/2025 with history of decreased urine output currently on IV antibiotics at home via PICC line specifically Zosyn for her wounds with wound care following with worsening urine output starting the day prior with no UOP purported on day of presentation, reportedly tolerating tube feeds which are continuous with hourly flushes with no fevers however did have a recent URI type illness with some increased congestions and secretions over the last 2 days but no increased oxygen needs prompting ED evaluation. #1. Acute Complicated Urinary Tract Infection secondary to chronic indwelling Myles catheter complicated by #2, #3, #4: Will admit to PCU, UA upon ED evaluation remarkable, pending UCx, will continue IVFs, monitor I/Os, continue IV meropenem and vancomycin given concurrent #2 and review of culture 03/29/2025 noted most recently with some resistance patterns to Zosyn concerns w/ transition as able pending sensitivities and speciation. Bld cx x 2 obtained in the ED. PT/OT/case management consulted for discharge planning. From review of cultures no urine cultures demonstrating previous growth noted in the [facility] system. Infectious disease consulted. #2. Acute kidney injury: Secondary to potentially acute infectious presentation as noted. Admission BUN/Cr 78/3.12, GFR 19, prior baseline creatinine noted to be primarily 0.2-0.3 with most recent creatinine noted 05/14/2025 0.30. Will continue to aggressively hydrate, hold nephrotoxic medications, will obtain FeNa, nephrology consulted, continue treatment of hyperkalemia as noted. Pending Vanc level, possibly vanc toxicity as etiology also. #3. Acute hyperkalemia: Admission potassium 6.0, not noted to be hemolyzed, will continue to initiate and treat with hyperkalemic protocol with serial repeat BMP and further interventions as needed pending repeat levels, continue treatment as noted #1, #2, #4. #4. Chronic decubitus ulcers with chronic osteomyelitis: Most recent cultures noted 03/29/2025 with several organisms including Enterococcus, Pseudomonas, Proteus, Klebsiella as well as anaerobic culture with Prevotella with culture sensitive to accommodation of vancomycin and meropenem, there is some resistance patterns noted on this most recent culture 03/29/25 to Zosyn which she is on at this time, as noted above will continue vancomycin given culture review with cautious as still level pending as noted above #2 and meropenem (given noted resistance on last Cx to zosyn), Wound Cx/MRSA wound Cx requested, wound RN consulted, positional changes. #5. 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 #6. Possible recent acute viral syndrome: Patient with recent URI type symptoms, will obtain full respiratory viral panel and continue to treat above as noted in addition to symptomatic treatment. #7. Chronic normocytic anemia: Admission hemoglobin 11.1, MCV 91.6, baseline hemoglobin appears primarily more recently 07-11, stable, continue to trend. #8. Chronic severe protein calorie malnutrition: Patient with significant underlying disease process, quadriplegic, will consult nutrition for recommendations. #9. Chronic allergic rhinitis: Will continue patient home loratadine regimen. Patient has as needed Flonase that she uses outpatient. #10. GERD: IV PPI. #11. DVT prophylaxis: Lovenox. #12. CODE status: Patient healthcare power of claim attorney is her legal guardian who is present. Discussed CODE status at length including difference between FULL code, DNR-CCA and DNR-CC status. Following discussions about the differences in these status, requested Full Code status. Advanced Care Planning Face to Face Time: 16 minutes. Charges/Coding Visit Charges Inpatient E&M: 44128 Init Hosp L3 Procedures Hospitalists Procedures: 86947 Advncd Care Plan 30 Min
[2025-05-20 22:00] LABS: Vancomycin, Random Level 88.8 ug/mL (0.0-15.0)
[2025-05-20 22:19] LABS: Magnesium 3.5 mg/dL (1.5-2.2)
--- OUTSIDE RECORDS SUMMARY | 2025-05-20 23:11 | XMS RPT_ITS | CCD ---
Author Organization [facility] Care Team Providers Care Account Adjuster Name Role Phone Colette Goode Unavailable Unavailable Unavailable Unavailable Sokari, Telemate A. Unavailable Unavailable Soashantii, Telemate A. Unavailable Unavailable DEBORA HART Unavailable Unavailable DEBORA HART Unavailable Unavailable Colette Goode Primary Care Provider [phone] Unavailable Primary Care Provider UnavailColette Kwok Primary Care Provider Colette Goode Primary Care Provider Colette Goode MD Primary Care Provider Rupa ANDINO, Colette De Guzman Primary Care Provider COLETTE GOODE Primary Care Unavailable WERNER KAPLAN Attending Unavailable WERNER AKPLAN Admitting Unavailable MARIELLE DUQUE Referring Unava ilable WERNER KAPLAN Attending Unavailable WERNER KAPLAN Admitting Unavailable COLETTE GOODE Primary Care Unavailable Rupa ANDINO, Colette Primary Care Provider ALEX VELASCO Admitting Unavailable ALEX VELASCO Attending Unavailable RUPA, COLETTE Tasha Primary Care Unavailable RUPA, COLETTE L Primary Care Unavailable YANY WRIGHT Referring Unavailable RENÉ SEPAR Attending Unavailable RUPA, COLETTE L Primary Care Unavailable RUPA, COLETTE L Primary Care Unavailable ERICH CHAVES Referring Unavailable AMANDA SUE Attending Unavailable ALEX VELASCO Admitting Unavailable ALEX VELASCO Attending Unavailable RUPA, COLETTE Tasha Primary Care Unavailable Marielle Duque MD Primary Care Provi beba Dunia ANDINO, Marielle Crow [facility] Provi beba Dunia ANDINO, Marielleterri Crow [facility] Provi beba DUNIA MARIELLE MIGNON [facility] Unava ilable PITERAKATHU, NIJU BABY Referring Unavailable Colette Goode MD Primary Care Provider MIGNON JORDAN Attending Unavailable RUMA GODWIN Admitting Unavailabl e RUMA GODWIN Referring Unavailabl e [facility] Unava ilable MIGNON JORDAN Attending Unavailable RUMA GODWIN Admitting Unavailabl e RUMA GODWIN Referring Unavailabl maritza DUQUEFORMERLY NAMED [facility] MIGNON [facility] Unava ilable Jason ANDINO, Stephy Davis Unavailable [phone] DUNIA MARIELLE CROW [facility] Unava ilable RUMA GODWIN Attending UnavailRUMA Harris Admitting Unavailabl e CELENA FIELDS Admitting Unavailable CELENA FIELDS Attending Unavailable DUQUE MARIELLETRESA CROW [facility] Unava ilable RENETTA STACK Consulting Unavailable ADRIENNE MCLEAN Attending Unavailable [facility] Unava ilable KIMBERLY, KAREN Admitting Unav ailable [place] [facility] Consulting Unavailable LINDA AHUJA Consulting Unavailable [facility] NIKKY BOSS Consulting Unava ilable [facility] Consulting Unav ailable [facility] Unava ilable CELENA IFELDS Attending Unavailable RUMA GODWIN Admitting Unavailkemal trujillo [facility] Unava ilable CELENA FIELDS Attending Unavailable RUMA GODWIN Admitting Unavailkemal trujillo [facility] Unava ilable CELENA FIELDS Admitting Unavailable CELENA FIELDS Attending Unavailable Rupa ANDINO, Dr. Colette Cordova Primary Care Provider Dr. Colette Goode MD Referring Provider Hubert QUINONES, Onelia Other Provider Rolando RETAIL SERVICE REPRESENTATIVE-C, Jaimee Attending Provider Rolando RETAIL SERVICE REPRESENTATIVE-C, Jaimee Other Provider Hubert QUINONES, Onelia Attending Provider Onelia Viramontes Referring Provider Sivakumar ANDINO, Dr. Oneill Emergency Provider Sivakumar ANDINO, Dr. Oneill Attending Provider Raghu ANDINO, Dr. Milligan Attending Provider Raghu ANDINO, Dr. Milligan Referring Provider Henny ANDINO, Dr. Triplett Attending Provider LALI ANDINO~[id number], LALI PÉREZ Admi tting Unavailable ALEX ESCALERA MD Consulting Unavaila nayan ESCALERA MD~[id number], LALI PÉREZ Attmaritza nding Unavailable DUNIA ANDINO, DR PALOMARES Primary Care Unavail able ALEX ESCALERA MD Consulting Unavaila nayan DUQUE MD, DR PALOMARES Consulting Unavail adolfo DUQUE MD, DR PALOMARES Consulting Unavail able LALI ANDINO~[id number], LALI PÉREZ Admi tting Unavailable ALEX ESCALERA MD Consulting Unavailshilpa ESCALERA MD~[id number], LALI House nding Unavailable DUNIA ANDINO, DR PALOMARES Primary Care Unavail able ALEX ESCALERA MD Consulting Unavaila ble MARGA OPTION TRADER~[id number], MARGA JOHNSON Admittin g Unavailable MARGA OPTION TRADER~[id number], MARGA JOHNSON Attendin g Unavailable DUNIA ANDINO, DR PALOMARES Consulting Unavail adolfo DUQUE MD, DR PALOMARES Primary Care Unavail able DUNIA ANDINO, DR PALOMARES Consulting Unavail able MARGA OPTION TRADER, ELIZABETH Consulting Unavailable MARGA OPTION TRADERELIZABETH Vaca Consulting Unavailable ABELARDO ANDINO~[id number], ABELARDO Barroso Attending Unavailable ABELARDO ANDINO~[id number], ABELARDO Barroso Admitting Unavailable DANIEL DOMINIQUE MD Consulting Unavailable DUNIA ANDINO DR~[phone] MARIELLE [facility] Care Unavailable DANIEL DOMINIQUE MD Consulting Unavailable TASNEEM CEBALLOS MD Consulting Unavailable [...] DR PALOMARES Primary Care Unavail adolfo ALBARRAN MD~[id number], AVIS boo Unavailable AVIS ANDINO~[id number], AVIS DUQUE MD, DR PALOMARES Consulting Unavail adolfo ALBARRAN MD, CHAD Consulting Unavailable AVIS ANDINO, CHAD Consulting Unavailable DARREN ANDINO, ANALY Davalos Consulting Unavailable DARREN ANDINO, ANALY Miranda Consulting Unavailable LISSETT MURRIETA, JEANNE Campbell Consulting Unavailable LISSETT MURRIETA, JEANNE Campbell Consulting Mirella ZHOU MD, MACRK Barroso Consulting Mirella ZHOU MD, MARCK Bar[place]so Consulting Mirella HERNANDEZ MD~[id number], DAVID PEREZ Admitting U nick HERNANDEZ MD~[id number], DAVID PEREZ Attending Arturo DUQUE MD, DR PALOMARES Consulting Unavail adolfo DUQUE MD, DR PALOMARES Primary Care Unavail adolfo DUQUE MD, DR PALOMARES Consulting Unavail adolfo HERNANDEZ MD, ANA Consulting Unavailable DAVID ANDINO, ANA Consulting Unavailable MEGA ANDINO, SHIMA Barroso Consulting Unavailable MEGA ANDINO, SHIMA Barroso Consulting Unavailable DAVID ANDINO~[id number], DAVID PEREZ Admitting U nick HERNANDEZ MD~[id number], DAVID PEREZ Attending Arturo DUQUE MD, DR PALOMARES Consulting Unavail adolfo DUQUE MD, DR PALOMARES Primary Care Unavail adolfo DUQUE MD, DR PALOMARES Consulting Unavail adolfo CORMIER MD, ~[phone] KI Massey Attending Unavailable GENIA ANDINO, ~[phone] KI Massey Admitting Unavailable DUNIA ANDINO, ~[id number] MARIELLE [facility] Unavailable ANAHI VERNON MD Consulting Unavailable SAULO ANDINO, ANAHI Consulting Unavailable DUNIA ANDINO, DR PALOMARES Consulting Unavail adolfo DUQUE MD, DR PALOMARES Consulting Unavail adolfo CORMIER MD, DR KI Massey Consulting Unavailshilpa CORMIER MD, DR KI Massey Consulting Unavailshilpa ESCALERA MD~[id number], LALI PÉREZ Admi tting Unavailable LALI ANDINO, ALEX PÉREZ Consulting Unavailshilpa ESCALERA MD~[id number], LALI PÉREZ Atte nding Unavailable DUNIA ANDINO, DR PALOMARES Primary Care Unavail able LALI ANDINO, ALEX PÉRZE Consulting Unavaila nayan DUQUE MD, DR PALOMARES Consulting Unavail adolfo DUQUE MD, DR PALOMARES Consulting Unavail MARIELLE Carranza [facility] Care Unava ilable STEPHY CISSE Attending Unavailable ADRIANA, YANY HUERTAS Attending Unavailable DUNIA, MARIELLE CROW [facility] Care Unava ilable YANY WRIGHT Attending Unavailable MARIELLE DUQUE [facility] Care Unava ilable Shima Krishnamurthy Referring Unavailable Shima Krishnamurthy Attending Unavailable Rupa, Colette L Primary Care Unavailable Rupa, Colette L Primary Care Unavailable Rupa, Colette L Referring Unavailable Gaspar, Onelia Attending Unavailable Gaspar, Onelia Consulting Unavailable Marshall RETAIL SERVICE REPRESENTATIVE, Jaieme Consulting Unavailable Rupa, Colette L Referring Unavailable Rupa, Colette L Primary Care Unavailable Gaspar, Onelia Consulting Unavailable Gaspar, Onelia Attending Unavailable Marshall RETAIL SERVICE REPRESENTATIVE, Jaimee Consulting Unavailable Rupa, Colette L Referring Unavailable Gaspar, Onelia Consulting Unavailable Gaspar, Onelia Attending Unavailable Rupa, Colette L Primary Care Unavailable Marshall RETAIL SERVICE REPRESENTATIVE, Jaimee Consulting Unavailable Rupa, Colette L Primary Care Unavailable Rupa, Colette L Referring Unavailable Gaspar, Onelia Attending Unavailable Gaspar, Onelia Consulting Unavailable Marshall RETAIL SERVICE REPRESENTATIVE, Jaimee Consulting Unavailable Rupa, Colette L Primary Care Unavailable Rupa, Colette L Referring Unavailable Gaspar, Onelia Consulting Unavailable Gaspar, Onelia Attending Unavailable Marshall RETAIL SERVICE REPRESENTATIVE, Jaimee Consulting Unavailable Uziel Inman Attending Unavailable Rupa, Colette L Primary Care Unavailable Rupa, Colette L Referring Unavailable Gaspar, Onelia Consulting Unavailable Marshall RETAIL SERVICE REPRESENTATIVE, Jaimee Consulting Unavailable Rupa, Colette L Primary Care Unavailable Rupa, Colette L Referring Unavailable Gaspar, Onelia Attending Unavailable Gaspar, Onelia Consulting Unavailable Marshall RETAIL SERVICE REPRESENTATIVE, Jaimee Consulting Unavailable Rupa, Colette L Referring Unavailable Rupa, Colette L Primary Care Unavailable Gaspar, Onelia Attending Unavailable Gaspar, Onelia Consulting Unavailable Marshall RETAIL SERVICE REPRESENTATIVE, Jaimee Consulting Unavailable Shima Krishnamurthy Attending Unavailable Raghu, Shima Referring Unavailable Rupa, Colette L Primary Care Unavailable Gaspar, Onelia Attending Unavailable Gaspar, Onelia Referring Unavailable Rupa, Colette L Primary Care Unavailable Rupa, Colette L Primary Care Unavailable Nino Shaver Attending Unavailable Rupa, Colette L Referring Unavailable Marshall RETAIL SERVICE REPRESENTATIVE, Jaimee Attending Unavailable Gaspar, Onelia Consulting Unavailable Rupa, Colette L Primary Care Unavailable Rupa, Colette L Primary Care Unavailable Marshall RETAIL SERVICE REPRESENTATIVE, Jaimee Attending Unavailable Rupa, Colette L Referring Unavailable Gaspar, Onelia Consulting Unavailable Mary Oh Attending Unavailable Rupa, Colette L Primary Care Unavailable Rupa, Colette L Referring Unavailable Marshall RETAIL SERVICE REPRESENTATIVE, Jaimee Attending Unavailable Rupa, Colette L Primary Care Unavailable Gaspar, Onelia Consulting Unavailable Shima Krishnamurthy Referring Unavailable Shima Krishnamurthy Attending Unavailable Rupa, Colette L Primary Care Unavailable Gaspar, Onelia Consulting Unavailable Shima Krishnamurthy Referring Unavailable Shima Krishnamurthy Attending Unavailable Rupa, Colette L Primary Care Unavailable Allergies Allergy Classification Reported Allergen(s) Allergy Type Date of Onset Reaction(s) Facility Amoxicillin / Clavulanate (7 sources) Amoxicillin / Clavulanate Drug Allergy 6 Rash [facility] Work Phone: Lactase (8 sources) Lactase; Translations: [LACTASE] Drug Allergy 7 [facility] Penicillins (antibiotic) (8 sources) Penicillins; Translations: [PENICILLINS] Drug Allergy 9 Other (See Comments) [facility] Work Phone: Quinolones (antibiotic) (8 sources) levoFLOXacin; Translations: [LEVOFLOXACIN] Drug Allergy 7 [facility] (20 sources) amoxicillin / clavulanate; Translations: [AMOXICILLIN-POT CLAVULANATE] Propensity to adverse reactions to drug 1 Rash [facility] Work Phone: (20 sources) lactase; Translations: [LACTASE] Propensity to adverse reactions to drug 7 [facility] Work Phone: (20 sources) levoFLOXacin; Translations: [LEVOFLOXACIN] Propensity to adverse reactions to drug 7 [facility] Work Phone: (20 sources) RAGWEED; Translations: [RAGWEED] Propensity to adverse reactions to drug 6 Unknown [facility] Work Phone: (1 source) Seasonal allergy; Translations: [SEASONAL ALLERGIES] Propensity to adverse reactions (disorder) 5 [facility] Repository (20 sources) Penicillins; Translations: [PENICILLINS] Propensity to adverse reactions to drug 9 Other (See Comments), Blisters [facility] (20 sources) Penicillins Propensity to adverse reactions to drug 9 Other (See Comments) [facility] (1 source) *Seasonal Propensity to adverse reactions to substance 2 [facility] (20 sources) Penicillins Propensity to adverse reactions to drug 9 Other (See Comments) [facility] (5 sources) Penicillins Propensity to adverse reactions to drug 9 Other (See Comments) [facility] (4 sources) cefdinir Drug Allergy 5 Fever and skin rash [facility] (4 sources) Ciprofloxacin Drug Allergy 5 Rash [facility] (1 source) Amoxicillin / Clavulanate Drug Allergy [facility] Repository (1 source) Lactose Drug Allergy [facility] Repository (1 source) Penicillins Drug allergy (disorder) [facility] Repository (1 source) cefdinir Drug Allergy 5 [facility] Repository (1 source) Ciprofloxacin Drug Allergy 5 [facility] Repository (1 source) Penicillins Drug allergy (disorder) 5 [facility] Repository Medications Current Medications Medication Drug Class(es) [...] pain, fever 100.4 F or greater, Starting [facility] 03/21/20 at 1944 Start: 02-12-2020 End: 02-14-2020 [...] fever 100.4 F or greater, headaches, Starting Tu11/29/18 at 0143 take 2 tablets enter al [...] use home supply Hazardous Drug. 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 217 mL 5 08/06/2021 01/19/2022 Discontinued Start: 10-02-2020 End: 06-18-2021 take 2 mL by mouth twice daily cannabidioL (Epidiolex) 100 mg/mL Soln Indications: 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) Take 2 mL by mouth 2 (two) times a day . 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) Take 2 [...] oco) 15 mg/2 spray (7.5/0.1mL x 2) [place] Indications: Intractable symptomatic generalized epilepsy (HCC) Half [...] 15 mg/2 s pray (7.5/0.1mL x 2) [place] Indications: Intractable symptomatic generalized epilepsy (HCC) Half [...] oco) 15 mg/2 spray (7.5/0.1mL x 2) [place] Indications: Intractable symptomatic generalized epilepsy (HCC) Half [...] as needed diazePAM 10 mg/spray (0.1 mL) [place] 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 Can repeat in 4 hours if needed in opposite nostril. . 4 each 2 08/14/2024 Active Start: 02-21-2024 End: 08-14-2024 diazePAM (Valtoco) 15 mg/2 s pray (7.5/0.1mL x 2) [place] Indications: Intractable symptomatic generalized epilepsy (HCC) 7.5 mg by Each Nare route as needed (for seizure or seizure cluster. Can repeat in 4 hours if needed.) . 8 each 2 02/21/2024 08/14/2024 Discontinued Start: 02-21-2024 diazePAM (Valt oco) 15 mg/2 spray (7.5/0.1mL x 2) [place] Indications: Intractable symptomatic generalized epilepsy (HCC) 7.5 mg by Each Nare route as needed (for seizure or seizure cluster. Can repeat in 4 hours if needed.) . 8 each 2 02/21/2024 Active Start: 09-13-2023 End: 02-21-2024 diazePAM (Valtoco) 15 mg/2 s pray (7.5/0.1mL x 2) [place] Indications: Intractable symptomatic generalized epilepsy (HCC) 7.5 mg by Each Nare route as needed (for seizure or seizure cluster. Can repeat in 4 hours if needed.) . 8 each 2 09/13/2023 02/21/2024 Discontinued (Reorder (Suppress CancelRx Message to Pharmacy)) Start: 09-13-2023 diazePAM (Valt oco) 15 mg/2 spray (7.5/0.1mL x 2) [place] Indications: Intractable symptomatic generalized epilepsy (HCC) 7.5 mg by Each Nare route as needed (for seizure or seizure cluster. Can repeat in 4 hours if needed.) . 8 each 2 09/13/2023 Active Start: 08-02-2023 End: 09-13-2023 diazePAM (Valtoco) 15 mg/2 s pray (7.5/0.1mL x 2) [place] Indications: Intractable symptomatic generalized epilepsy (HCC) 7.5 mg by Each Nare route as needed (for seizure or seizure cluster. Can repeat in 4 hours if needed.) . 8 each 2 08/02/2023 09/13/2023 Discontinued (Reorder (Suppress CancelRx Message to Pharmacy)) Start: 08-02-2023 diazePAM (Valt oco) 15 mg/2 spray (7.5/0.1mL x 2) [place] Indications: Intractable symptomatic generalized epilepsy (HCC) 7.5 mg by Each Nare route as needed (for seizure or seizure cluster. Can repeat in 4 hours if needed.) . 8 each 2 08/02/2023 Active Start: 02-22-2023 End: 08-02-2023 diazePAM (Valtoco) 15 mg/2 s pray (7.5/0.1mL x 2) [place] Indications: Intractable symptomatic generalized epilepsy (HCC) 7.5 mg by Each Nare route as needed (for seizure or seizure cluster. Can repeat in 4 hours if needed.) . 8 each 1 02/22/2023 08/02/2023 Discontinued Start: 02-22-2023 diazePAM (Valt oco) 15 mg/2 spray (7.5/0.1mL x 2) [place] Indications: Intractable symptomatic generalized epilepsy (HCC) 7.5 mg by Each Nare route as needed (for seizure or seizure cluster. Can repeat in 4 hours if needed.) . 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 8 each 1 11/27/2021 09/01/2022 Discontinued Start: 11-27-2021 diazePAM (Valt oco) 15 mg/2 spray (7.5/0.1mL x 2) [place] Indications: Intractable symptomatic generalized epilepsy (HCC) Instill 1 spray into each nostril as needed (Seizures, may repeat times 1 in 4 hours) . 8 each 1 11/27/2021 Start: 11-27-2021 diazePAM (Valt oco) 15 mg/2 spray (7.5/0.1mL x 2) [place] Indications: Intractable symptomatic generalized epilepsy (HCC) Instill 1 spray into each nostril as needed (Seizures, may repeat times 1 in 4 hours) . 8 each 1 11/27/2021 Suspended Start: 11-27-2021 diazePAM (Valt oco) 15 mg/2 spray (7.5/0.1mL x 2) [place] Indications: Intractable symptomatic generalized epilepsy (HCC) Instill 1 spray into each nostril as needed (Seizures, may repeat times 1 in 4 hours) . 8 each 1 11/27/2021 Active Start: 05-15-2021 End: 11-27-2021 diazePAM (Valtoco) 15 mg/2 s pray (7.5/0.1mL x 2) [place] Indications: Intractable symptomatic generalized epilepsy (HCC) Instill 1 spray into each nostril as needed (Seizures, may repeat times 1 in 4 hours) . 8 each 5 05/15/2021 11/27/2021 Discontinued (Reorder (Suppress CancelRx Message to Pharmacy)) Start: 05-15-2021 End: 11-27-2021 diazePAM (Valtoco) 15 mg/2 s pray (7.5/0.1mL x 2) [place] Indications: Intractable symptomatic generalized epilepsy (HCC) Instill 1 spray into each nostril as needed (Seizures, may repeat times 1 in 4 hours) . 8 each 5 05/15/2021 11/27/2021 Discontinued (Reorder) Start: 05-15-2021 diazePAM (Valt oco) 15 mg/2 spray (7.5/0.1mL x 2) [place] Indications: Intractable symptomatic generalized epilepsy (HCC) Instill 1 spray into each nostril as needed (Seizures, may repeat times 1 in 4 hours) . 8 each 05/15/2021 Active Start: 04-30-2021 End: 05-15-2021 diazePAM (Valtoco) 15 mg/2 s pray (7.5/0.1mL x 2) [place] Indications: Intractable symptomatic generalized epilepsy (HCC) Instill 1 spray into each nostril as needed (Seizures, may repeat times 1 in 4 hours) . 8 each 04/30/2021 05/15/2021 Discontinued (Reorder) Start: 04-30-2021 diazePAM (Valt oco) 15 mg/2 spray (7.5/0.1mL x 2) [place] Indications: Intractable symptomatic generalized epilepsy (HCC) Instill 1 spray into each nostril as needed (Seizures, may repeat times 1 in 4 hours) . 8 each 5 04/30/2021 Active Start: 12-17-2020 End: 04-29-2021 diazePAM (Valtoco) 15 mg/2 s pray (7.5/0.1mL x 2) [place] Indications: Intractable symptomatic generalized epilepsy (HCC) Instill 1 spray into each nostril as needed (Seizures, may repeat times 1 in 4 hours) . 8 each 12/17/2020 04/29/2021 Discontinued (Reorder) Start: 12-17-2020 diazePAM (Valt oco) 15 mg/2 spray (7.5/0.1mL x 2) [place] Indications: Intractable symptomatic generalized epilepsy (HCC) Instill [...] 1 spray, Nasal, Daily PRN, irritation, Starting [facility] 03/21/20 at 1946 Start: 01-11-2020 take 1 spray(s) nasa l route once daily as needed for rhinitis fluticasone propionate (FLONASE) 50 mcg/actuation nasal spray Indications: Aspiration, chronic pulmonary, initial encounter Instill 1 (one) spray into each nostril daily as needed for rhinitis . 16 g 11 01/11/2020 Active Start: 11-29-2018 End: 12-05-2018 2 spray, Nasal, Daily, First dose on Wed11/29/18 at 0900 End: 01-11-2020 take 1 spray(s) [...] 250 mg bid. . 60 tablet 11 08/03/2018 Active Start: 07-26-2017 End: 07-07-2018 take [...] (two) times a day. 60 tablet 11 04/26/2017 07/26/2017 Discontinued Start: 04-26-2017 End: 07-26-2017 [...] 2 times jessica y, First dose on 09/24/20 at 0000 Start: 08-13-2020 End: 08-13-2020 1,000 [...] (two) times a day . 600 mL 07/24/2019 02/14/2020 Discontinued (Error) Start: 11-29-2018 End: [...] (two) times a day . 600 mL 08/03/2018 Active Start: 12-22-2016 End: 01-19-2018 take 15 mL by mouth twice daily levETIRAcetam (KEPPRA) 100 mg/mL solution Indications: Intractable symptomatic generalized epilepsy (HCC) Take 15 mL (1,500 mg total) by mouth 2 (two) times a day. 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 15 tablet 5 01/04/2024 02/21/2024 Discontinued polyethylene glycol 3350 27557 mg powder for oral solution (20 sources) [...] into clotted IV line as needed for wireline supervisor. May repeat as needed. Do not use on Peripheral or Midlines . 2 mL 52 07/20/2022 04/21/2023 Discontinued (Therapy completed) Start: 07-20-2022 alteplase (CAT H KENNY) 2 mg injection Instill 2mL into clotted IV line as needed for wireline supervisor. May repeat as needed. Do not use on Peripheral or Midlines . 2 mL 52 07/20/2022 Start: 07-20-2022 alteplase (CAT H KENNY) 2 mg injection Instill 2mL into clotted IV line as needed for wireline supervisor. May repeat as needed. Do not use [...] Oral, Every 4 hours PRN, indigestion, Starting [facility] 09/23/20 at 2156 Start: 03-21-2020 End: 03-22-2020 take 30 mL by mouth every four hours as needed 30 mL, Oral, Every 4 hours PRN, indigestion, Starting [facility] 03/21/20 at 1951 Start: 10-23-2019 End: 10-24-2019 [...] every hour 50 mL/hr, Intravenous, Continuous, Starting [facility] 03/21/20 at 2045 Start: 10-21-2019 End: 10-23-2019 [...] Start: 04-05-2025 take 1 capsule by mo ut every twelve hours Ciprofloxacin (Cipro) 500 mg/5 [...] mg docusate sodium 50 mg / sennosides, jail 8.6 mg oral tablet (1 source) Start: [...] 40 mg, Subcutaneous, Daily, First dose on Wed10/21/19 at 1945 Administer in abdomen unless otherwise directed by prescriber. Notify physician if patient refuses. 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 flu vacc [id number] 6mos up(PF) (FLUZONE QUAD/FLULAVAL QUAD/FLUARIX QUAD) syringe 0.5 mL (1 source) Start: 09-22-2019 End: 09-27-2019 inject 0.5 mL by intramuscular injection every twenty-four hours as needed flu vacc [id number] 6mos up(PF) (FLUZONE QUAD/FLULAVAL QUAD/FLUARIX QUAD) syringe 0.5 mL flu vacc [id number] 6mos up(PF) (FLUZONE QUAD/FLULAVAL QUAD/FLUARIX QUAD) syringe 0.5 mL (1 source) Start: 08-13-2020 End: 08-13-2020 inject 0.5 mL by intramuscular injection every twenty-four hours as needed flu vacc [id number] 6mos up(PF) (FLUZONE QUAD/FLULAVAL QUAD/FLUARIX QUAD) syringe [...] 100 mg/5 mL syrup 200 mg guaiFENesin (LUÍS ITUSSIN) 100 mg/5 mL syrup Take 10 mL (200 mg total) per G-tube 3 (three) times a day as needed for cough . Active guaiFENesin (LUÍS ITUSSIN) 100 mg/5 mL syrup 10 mL [...] Oral, Daily PRN, constipation, For constipation., Starting [facility] 03/21/20 at 1951 meropenem 500 mg [...] Tube, 2 times daily, First dose on Wed09/23/20 at 2245 Hold for SBP <90 or HR <60 Start: 02-12-2020 End: 02-14-2020 take 5 mg intravenous route every six hours as needed metoprolol (LOPRESSOR) injection 5 mg Start: 10-21-2019 End: 10-24-2019 take 12.5 mg by mouth once daily 12.5 mg, Oral, Daily, First dose on Wed10/21/19 at 2100 Please hold for SBP<100 or HR<55. DO NOT CRUSH OR CHEW. Start: 09-21-2019 End: 09-27-2019 take 12.5 mg by mouth once daily 12.5 mg, Oral, Daily, First dose (after last reorder) on [facility] 09/21/19 at 1100 DO NOT CRUSH OR CHEW. 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 AMENDED REPORT 05/20/251937 K previously reported as: 6.0 *H mmol/L Critical Result(s) Called at:05-20-25 19:36 to by:??Results read back by same. Performed By: #### M 100.4001, M100.3000, #### [facility] [address] [place], [address] CBC W/Diff, Automatedon 05-01 Absolute Lymph 1.25 X10 3/uL Normal 0.83-4.51 [facility] Comment on above: Performed By: #### M 100.4001, M100.3000, #### [facility] [address] [place], [address] Absolute Neut 10.4 X10 3/uL High 2.0-7.7 [facility] Comment on above: Performed By: #### M 100.4001, M100.3000, #### [facility] [address] [place], [address] Basophils/100 WBC (Bld) 0.5 % Normal 0-1 [facility] Comment on above: Performed By: #### M 100.4001, M100.3000, #### [facility] [address] [place], [address] Eosinophils/100 WBC (Bld) 1.0 % Normal 0-5 [facility] Comment on above: Performed By: #### M 100.4001, M100.3000, #### [facility] [address] [place], [address] Erythrocyte distribution width (RBC) [Ratio] 15.0 % High 11.6-14.6 [facility] Comment on above: Performed By: #### M 100.4001, M100.3000, #### [facility] [address] [place], [address] Hematocrit (Bld) [Volume fraction] 37.2 % Normal 37-47 [facility] Comment on above: Performed By: #### M 100.4001, M100.3000, #### [facility] [address] [place], [address] Hemoglobin (Bld) [Mass/Vol] 11.1 g/dL Low 12.0-15.0 [facility] Comment on above: Performed By: #### M 100.4001, 00.3000, #### [facility] [address] [place], [address] IG% 0.500 Normal 0.0-0.9 [facility] Comment on above: Result Comment: IG% - Immature Granulocytes (promyelocytes, myelocytes and metamyelocytes) > 1% indicates that a LEFT SHIFT is Present. Performed By: #### M 100.4001, M100.3000, #### [facility] [address] [place], [address] Lymphocytes/100 WBC (Bld) 9.5 % Low 19-41 [facility] Comment on above: Performed By: #### M 100.4001, M100.3000, #### [facility] [address] [place], [address] MCH (RBC) [Entitic mass] 27.3 pg Normal 27.0-32.0 [facility] Comment on above: Performed By: #### M 100.4001, M100.3000, #### [facility] [address] [place], [address] MCHC (RBC) [Mass/Vol] 29.8 g/dL Low 32-36 [facility] Comment on above: Performed By: #### M 100.4001, M100.3000, #### [facility] [address] [place], [address] MCV (RBC) [Entitic vol] 91.6 fL Normal 81-99 [facility] Comment on above: Performed By: #### M 100.4001, M100.3000, #### [facility] [address] [place], [address] Monocytes/100 WBC (Bld) 9.9 % Normal 0-10 [facility] Comment on above: Performed By: #### M 100.4001, M100.3000, #### [facility] [address] [place], [address] Neutrophils/100 WBC (Bld) 78.6 % High 47-70 [facility] Comment on above: Performed By: #### M 100.4001, M100.3000, #### [facility] [address] [place], [address] Nucleated RBC (Bld) [#/Vol] 0 10*3/uL Normal 0-5 [facility] Comment on above: Performed By: #### M 100.4001, M100.3000, #### [facility] [address] [place], [address] Platelet mean volume (Bld) [Entitic vol] 10.2 fL Normal 6.2-12.0 [facility] Comment on above: Performed By: #### M 100.4001, M100.3000, #### [facility] [address] [place], [address] Platelets (Bld) [#/Vol] 290 10*3/uL Normal 150-450 [facility] Comment on above: Performed By: #### M 100.4001, M100.3000, #### [facility] [address] [place], [address] RBC (Bld) [#/Vol] 4.06 10*6/uL Low 4.2-5.4 [facility] Comment on above: Performed By: #### M 100.4001, M100.3000, M1.1999 #### [facility] [address] [place], [address] RDW SD 50.6 fl High 35.1-43.9 [facility] Comment on above: Performed By: #### M 100.4001, M100.3000, #### [facility] [address] [place], [address] WBC (Bld) [#/Vol] 13.2 10*3/uL High 4.4-11.0 [facility] Comment on above: Performed By: #### M 100.4001, M100.3000, #### [facility] [address] [place], [address] Urinalysis, Completeon 05-20 EPI,RENAL 0-5 SEEN Normal 0-5 [facility] Comment on above: Order Comment: JOSLYN TER SPECIMEN Performed By: #### M 100.4001, M100.3000, #### [facility] [address] [place], [address] BACTERIA 3+ /hpf Normal None Seen [facility] Comment on above: Order Comment: JOSLYN TER SPECIMEN Performed By: #### M 100.4001, M100.3000, M1.1999 #### [facility] [address] [place], [address] EPI,SQUAMOUS 0-5 SEEN Normal 5-10 [facility] Comment on above: Order Comment: JOSLYN TER SPECIMEN Performed By: #### M 100.4001, M100.3000, #### [facility] [address] [place], [address] RBC 5-10 SEEN Normal 0-5 [facility] Comment on above: Order Comment: JOSLYN TER SPECIMEN Performed By: #### M 100.4001, M100.3000, #### [facility] [address] [place], [address] WBC 10-25 SEEN Normal 0-5 [facility] Comment on above: Order Comment: JOSLYN TER SPECIMEN Performed By: #### M 100.4001, M100.3000, #### [facility] [address] [place], [address] Mucus Ql (Urine sed) 0 SEEN Normal [facility] Comment on above: Order Comment: JOSLYN TER SPECIMEN Performed By: #### M 100.4001, M100.3000, #### [facility] [address] [place], [address] Anion gap in Serum or Plasma Ordered By: Shima Krishnamurthy on 05-14-2025 Anion gap [Moles/Vol] 12 mmol/L -15 [facility] BUN/creatinine ratioOrdered By: Shima Krishnamurthy on 05-14-2025 Urea nitrogen/Creatinine [Mass ratio] 54.3 mg/mg High 10- [facility] Basic Metabolic Profile (BMP )on 05-14-2025 BUN/CRE 54.3 RATIO High -20 [facility] Comment on above: Performed By: #### M 100.4001, M100.3000, #### [facility] [address] [place], [address] Calcium [Mass/Vol] 9.7 mg/dL Normal 7.6-11.0 [facility] Comment on above: Performed By: #### M 100.4001, M100.3000, #### [facility] [address] [place], [address] Chloride [Moles/Vol] 102 mmol/L Normal 98-108 [facility] Comment on above: Performed By: #### M 100.4001, M100.3000, #### [facility] [address] [place], [address] CO2 [Moles/Vol] 29.1 mmol/L Normal 21.0-32.0 [facility] Comment on above: Performed By: #### M 100.4001, M100.3000, #### [facility] [address] [place], [address] Creatinine [Mass/Vol] 0.30 mg/dL Low 0.70-1.20 [facility] Comment on above: Performed By: #### M 100.4001, M100.3000, #### [facility] [address] [place], [address] GAP 12 Normal 5-15 [facility] Comment on above: Performed By: #### M 100.4001, M100.3000, #### [facility] [address] [place], [address] GFR/1.73 sq M.predicted among non-blacks MDRD (S/P/Bld) [Vol rate/Area] 141 mL/min/{1.73_m2} Normal >60 [facility] Comment on above: Result Comment: mL/m in/1.73m2 CKD-EPI Creatinine Equation (2020) Performed By: #### M 100.4001, M100.3000, #### [facility] [address] [place], [address] Glucose [Mass/Vol] 136 mg/dL High 70-99 [facility] Comment on above: Performed By: #### M 100.4001, M100.3000, #### [facility] [address] [place], [address] Potassium [Moles/Vol] 4.8 mmol/L Normal 3.3-5.1 [facility] Comment on above: Result Comment: Hemo lysis present, Results??could be affected. ?? Performed By: #### M 100.4001, M100.3000, #### [facility] [address] [place], [address] Sodium [Moles/Vol] 142 mmol/L Normal 133-145 [facility] Comment on above: Performed By: #### M 100.4001, M100.3000, #### [facility] [address] [place], [address] Urea nitrogen [Mass/Vol] 17 mg/dL Normal 4-19 [facility] Comment on above: Performed By: #### M 100.4001, M100.3000, #### [facility] [address] [place], [address] CBC-Complete Blood Cnt No Di ffon 05-14-2025 PLT TNP Normal 150-450 [facility] Comment on above: Result Comment: Plea se note: For this sample, a platelet estimate is provided rather than a platelet count due to platelet clumping. Other parameters associated with this sample are not affected by platelet clumping. If a more accurate platelet count is required, a redraw of the patient will be necessary. Performed By: #### M 100.4001, M100.3000, #### [facility] [address] [place], [address] MPV TNP Normal 6.2-12.0 [facility] Comment on above: Performed By: #### M 100.4001, M100.3000, #### [facility] [address] [place], [address] Erythrocyte distribution width (RBC) [Ratio] 14.9 % High 11.6-14.6 [facility] Comment on above: Performed By: #### M 100.4001, M100.3000, #### [facility] [address] [place], [address] Hematocrit (Bld) [Volume fraction] 39.5 % Normal 37-47 [facility] Comment on above: Performed By: #### M 100.4001, M100.3000, #### [facility] [address] [place], [address] Hemoglobin (Bld) [Mass/Vol] 11.9 g/dL Low 12.0-15.0 [facility] Comment on above: Performed By: #### M 100.4001, M100.3000, #### [facility] [address] [place], [address] MCH (RBC) [Entitic mass] 27.4 pg Normal 27.0-32.0 [facility] Comment on above: Performed By: #### M 100.4001, M100.3000, #### [facility] [address] [place], [address] MCHC (RBC) [Mass/Vol] 30.1 g/dL Low 32-36 [facility] Comment on above: Performed By: #### M 100.4001, M100.3000, #### [facility] [address] [place], [address] MCV (RBC) [Entitic vol] 90.8 fL Normal 81-99 [facility] Comment on above: Performed By: #### M 100.4001, M100.3000, #### [facility] [address] [place], [address] RBC (Bld) [#/Vol] 4.35 10*6/uL Normal 4.2-5.4 [facility] Comment on above: Performed By: #### M 100.4001, M100.3000, #### [facility] [address] [place], [address] RDW SD 49.9 fl High 35.1-43.9 [facility] Comment on above: Performed By: #### M 100.4001, M100.3000, #### [facility] [address] [place], [address] WBC (Bld) [#/Vol] 10.4 10*3/uL Normal 4.4-11.0 [facility] Comment on above: Performed By: #### M 100.4001, M100.3000, #### [facility] [address] [place], [address] Carbon dioxide, total [Moles /volume] in Central venous bloodOrdered By: Shima Krishnamurthy on 05-14-2025 CO2 [Moles/Vol] 29.1 mmol/L 21.0-32.0 [facility] Chloride assayOrdered By: Elisabeth Krishnamurthy on 05-14-2025 Chloride [Moles/Vol] 102 mmol/L 98-108 [facility] Erythrocyte Sed Rateon 05-14 SED RATE 48 mm/hr High 0-30 [facility] Comment on above: Performed By: #### M 100.4001, M100.3000, #### [facility] [address] [place], [address] Erythrocyte distribution wid th ratioOrdered By: Shima Krishnamurthy on 05-14-2025 Erythrocyte distribution width (RBC) [Ratio] 14.9 % High 11.6-14.6 [facility] Erythrocyte distribution wid th standard deviationOrdered By: Shima Krishnamurthy on 05-14-2025 Erythrocyte distribution width (RBC) [Ratio] 49.9 fl High 35.1-43.9 [facility] Erythrocyte sedimentation ra teOrdered By: Shima Krishnamurthy on 05-14-2025 ESR (Bld) [Velocity] 48 mm/h High 0-30 [facility] Glomerular filtration rate ( GFR) estimation/1.73 sq m using serum, plasma, or whole bOrdered By: Shima Krishnamurthy on 05-14-2025 GFR/1.73 sq M.predicted among non-blacks MDRD (S/P/Bld) [Vol rate/Area] 141 mL/min/{1.73_m2} >60 [facility] Comment on above: mL/min/1.73m2 CKD-EP I Creatinine Equation (2020) Hematocrit Auto (Bld) [Volum e fraction]Ordered By: Shima Krishnamurthy on 05-14-2025 Hematocrit (Bld) [Volume fraction] 39.5 % 37-47 [facility] Hemoglobin measurementOrdere d By: Shima Krishnamurthy on 05-14-2025 Hemoglobin (Bld) [Mass/Vol] 11.9 g/dL Low 12.0-15.0 [facility] MCV (mean corpuscular volume ) determinationOrdered By: Shima Krishnamurthy on 05-14-2025 MCV (RBC) [Entitic vol] 90.8 fL 81-99 [facility] Mean corpuscular hemoglobin (MCH) determinationOrdered By: Shima Krishnamurthy on 05-14-2025 MCH (RBC) [Entitic mass] 27.4 pg 27.0-32.0 [facility] Mean corpuscular hemoglobin concentration (MCHC) determinationOrdered By: Shima Krishnamurthy on 05-14-2025 MCHC (RBC) [Mass/Vol] 30.1 g/dL Low 32-36 [facility] Mean platelet volume determi nationOrdered By: Shima Krishnamurthy on 05-14-2025 Mean platelet volume determination [facility] Comment on above: Test not performed Platelet countOrdered By: Elisabeth Krishnamurthy on 05-14-2025 Platelet count [facility] Comment on above: Test not performedPl [...] Potassium (Unsp spec) [Mass/Vol] 4.8 mmol/L 3.3-5.1 [facility] Comment on above: Hemolysis present, R esults could be affected. RBC Auto (Bld) [#/Vol]Ordere d By: Shima Krishnamurthy on 05-14-2025 RBC (Bld) [#/Vol] 4.35 10*6/uL 4.2-5.4 [facility] Serum creatinine measurement (mass/volume)Ordered By: Shima Krishnamurthy on 05-14-2025 Creatinine [Mass/Vol] 0.30 mg/dL Low 0.70-1.20 [facility] Serum glucose measurement (m ass/volume)Ordered By: Shima Krishnamurthy on 05-14-2025 Glucose [Mass/Vol] 136 mg/dL High 70-99 [facility] Serum or plasma calcium robin urement (mass/volume)Ordered By: Shima Krishnamurthy on 05-14-2025 Calcium [Mass/Vol] 9.7 mg/dL 7.6-11.0 [facility] Serum or plasma urea nitroge n measurement (mass/volume)Ordered By: Shima Krishnamurthy on 05-14-2025 Urea nitrogen [Mass/Vol] 17 mg/dL 4-19 [facility] Sodium levelOrdered By: Juanito Krishnamurthy on 05-14-2025 Sodium [Moles/Vol] 142 mmol/L 133-145 [facility] Trough vancomycin levelOrder ed By: Shima Krishnamurthy on 05-14-2025 Vancomycin trough [Mass/Vol] ug/mL Low 5.0-15.0 [facility] Comment on above: Recommended goal tro ugh [...] therapy recommended for serious lifethreatening infections include:- Myisqimgwk-Actpflqnjgon-Xyxasacdz (Ventilator/Healtcare Associated)-Sepsis PLEASE CONTACT PHARMACY SERVICES (#[id number]) FOR INTERPRETATIONOF RESULTS. Vancomycin, Trough Levelon 0 05-14-2025 VANCO, TROUGH < 4.0 Low 5.0-15.0 [facility] Comment on above: Order Comment: 0000 Result [...] (Ventilator/Healtcare Associated) -Sepsis PLEASE CONTACT PHARMACY SERVICES (#[id number]) FOR INTERPRETATION OF RESULTS. Performed By: #### M 100.4001, M1.2999, #### [facility] [address] [place], [place], [id number] White blood cell (WBC) count Ordered By: Shima Krishnamurthy on 05-14-2025 WBC (Bld) [#/Vol] 10.4 10*3/uL 4.4-11.0 [facility] Anion gap in Serum or Plasma Ordered By: Shima Krishnamurthy on 05-07-2025 Anion gap [Moles/Vol] 10 mmol/L 01-11 [facility] BUN/creatinine ratioOrdered By: Shima Krishnamurthy on 05-07-2025 Urea nitrogen/Creatinine [Mass ratio] 48.8 mg/mg High 06-18 [facility] Basic Metabolic Profile (BMP )on 05-07-2025 BUN/CRE 48.8 RATIO High 06-18 [facility] Comment on above: Performed By: #### M 100.4001, M100.3000, #### [facility] [address] [place], [address] Calcium [Mass/Vol] 9.4 mg/dL Normal 7.6-11.0 [facility] Comment on above: Performed By: #### M 100.4001, M100.3000, #### [facility] [address] [place], [address] Chloride [Moles/Vol] 101 mmol/L Normal 98-108 [facility] Comment on above: Performed By: #### M 100.4001, M100.3000, #### [facility] [address] [place], [address] CO2 [Moles/Vol] 30.2 mmol/L Normal 21.0-32.0 [facility] Comment on above: Performed By: #### M 100.4001, M100.3000, #### [facility] [address] [place], [address] Creatinine [Mass/Vol] 0.25 mg/dL Low 0.70-1.20 [facility] Comment on above: Performed By: #### M 100.4001, M100.3000, #### [facility] [address] [place], [address] GAP 10 Normal 5-15 [facility] Comment on above: Performed By: #### M 100.4001, M100.3000, #### [facility] [address] [place], [address] GFR/1.73 sq M.predicted among non-blacks MDRD (S/P/Bld) [Vol rate/Area] 148 mL/min/{1.73_m2} Normal >60 [facility] Comment on above: Result Comment: mL/m in/1.73m2 CKD-EPI Creatinine Equation (2020) Performed By: #### M 100.4001, M100.3000, #### [facility] [address] [place], [address] Glucose [Mass/Vol] 104 mg/dL High 70-99 [facility] Comment on above: Performed By: #### M 100.4001, M100.3000, #### [facility] [address] [place], [address] Potassium [Moles/Vol] 4.0 mmol/L Normal 3.3-5.1 [facility] Comment on above: Performed By: #### M 100.4001, M100.3000, #### [facility] [address] [place], [address] Sodium [Moles/Vol] 141 mmol/L Normal 133-145 [facility] Comment on above: Performed By: #### M 100.4001, M100.3000, #### [facility] [address] [place], [address] Urea nitrogen [Mass/Vol] 12 mg/dL Normal 4-19 [facility] Comment on above: Performed By: #### M 100.4001, M100.3000, #### [facility] [address] [place], [address] CBC-Complete Blood Cnt No Di ffon 05-07-2025 Erythrocyte distribution width (RBC) [Ratio] 15.3 % High 11.6-14.6 [facility] Comment on above: Performed By: #### M 100.4001, M100.3000, #### [facility] [address] [place], [address] Hematocrit (Bld) [Volume fraction] 37.6 % Normal 37-47 [facility] Comment on above: Performed By: #### M 100.4001, M100.3000, #### [facility] [address] [place], [address] Hemoglobin (Bld) [Mass/Vol] 11.6 g/dL Low 12.0-15.0 [facility] Comment on above: Performed By: #### M 100.4001, M100.3000, #### [facility] [address] [place], [address] MCH (RBC) [Entitic mass] 28.0 pg Normal 27.0-32.0 [facility] Comment on above: Performed By: #### M 100.4001, 00.3000, #### [facility] [address] [place], [address] MCHC (RBC) [Mass/Vol] 30.9 g/dL Low 32-36 [facility] Comment on above: Performed By: #### M 100.4001, M100.3000, #### [facility] [address] [place], [address] MCV (RBC) [Entitic vol] 90.8 fL Normal 81-99 [facility] Comment on above: Performed By: #### M 100.4001, .3000, #### [facility] [address] [place], [address] Platelet mean volume (Bld) [Entitic vol] 9.7 fL Normal 6.2-12.0 [facility] Comment on above: Performed By: #### M 100.4001, M100.3000, #### [facility] [address] [place], [address] Platelets (Bld) [#/Vol] 299 10*3/uL Normal 150-450 [facility] Comment on above: Performed By: #### M 100.4001, M100.3000, #### [facility] [address] [place], [address] RBC (Bld) [#/Vol] 4.14 10*6/uL Low 4.2-5.4 [facility] Comment on above: Performed By: #### M 100.4001, M100.3000, #### [facility] [address] [place], [address] RDW SD 50.5 fl High 35.1-43.9 [facility] Comment on above: Performed By: #### M 100.4001, M100.3000, #### [facility] [address] [place], [address] WBC (Bld) [#/Vol] 11.9 10*3/uL High 4.4-11.0 [facility] Comment on above: Performed By: #### M 100.4001, M100.3000, #### [facility] [address] [place], [address] Carbon dioxide, total [Moles /volume] in Central venous bloodOrdered By: Shima Krishnamurthy on 05-07-2025 CO2 [Moles/Vol] 30.2 mmol/L 21.0-32.0 [facility] Chloride assayOrdered By: Elisabeth Krishnamurthy on 05-07-2025 Chloride [Moles/Vol] 101 mmol/L 98-108 [facility] Erythrocyte Sed Rateon 05-07 SED RATE 47 mm/hr High 0-30 [facility] Comment on above: Performed By: #### M 100.4001, M100.3000, #### [facility] [address] [place], [address] Erythrocyte distribution wid th ratioOrdered By: Shima Krishnamurthy on 05-07-2025 Erythrocyte distribution width (RBC) [Ratio] 15.3 % High 11.6-14.6 [facility] Erythrocyte distribution wid th standard deviationOrdered By: Shima Krishnamurthy on 05-07-2025 Erythrocyte distribution width (RBC) [Ratio] 50.5 fl High 35.1-43.9 [facility] Erythrocyte sedimentation ra teOrdered By: Shima Krishnamurthy on 05-07-2025 ESR (Bld) [Velocity] 47 mm/h High 0-30 [facility] Glomerular filtration rate ( GFR) estimation/1.73 sq m using serum, plasma, or whole bOrdered By: Shima Krishnamurthy on 05-07-2025 GFR/1.73 sq M.predicted among non-blacks MDRD (S/P/Bld) [Vol rate/Area] 148 mL/min/{1.73_m2} >60 [facility] Comment on above: mL/min/1.73m2 CKD-EP I Creatinine Equation (2020) Hematocrit Auto (Bld) [Volum e fraction]Ordered By: Shima Krishnamurthy on 05-07-2025 Hematocrit (Bld) [Volume fraction] 37.6 % 37-47 [facility] Hemoglobin measurementOrdere d By: Shima Krishnamurthy on 05-07-2025 Hemoglobin (Bld) [Mass/Vol] 11.6 g/dL Low 12.0-15.0 [facility] MCV (mean corpuscular volume ) determinationOrdered By: Shima Krishnamurthy on 05-07-2025 MCV (RBC) [Entitic vol] 90.8 fL 81-99 [facility] Mean corpuscular hemoglobin (MCH) determinationOrdered By: Shima Krishnamurthy on 05-07-2025 MCH (RBC) [Entitic mass] 28.0 pg 27.0-32.0 [facility] Mean corpuscular hemoglobin concentration (MCHC) determinationOrdered By: Shima Krishnamurthy on 05-07-2025 MCHC (RBC) [Mass/Vol] 30.9 g/dL Low 32-36 [facility] Mean platelet volume determi nationOrdered By: Shima Krishnamurthy on 05-07-2025 Platelet mean volume (Bld) [Entitic vol] 9.7 fL 6.2-12.0 [facility] Platelet countOrdered By: Elisabeth Krishnamurthy on 05-07-2025 Platelets (Bld) [#/Vol] 299 10*3/uL 150-450 [facility] Potassium measurement (mass/ volume)Ordered By: Shima Krishnamurthy on 05-07-2025 Potassium (Unsp spec) [Mass/Vol] 4.0 mmol/L 3.3-5.1 [facility] RBC Auto (Bld) [#/Vol]Ordere d By: Shima Krishnamurthy on 05-07-2025 RBC (Bld) [#/Vol] 4.14 10*6/uL Low 4.2-5.4 [facility] Serum creatinine measurement (mass/volume)Ordered By: Shima Krishnamurthy on 05-07-2025 Creatinine [Mass/Vol] 0.25 mg/dL Low 0.70-1.20 [facility] Serum glucose measurement (m ass/volume)Ordered By: Shima Krishnamurthy on 05-07-2025 Glucose [Mass/Vol] 104 mg/dL High 70-99 [facility] Serum or plasma calcium rboin urement (mass/volume)Ordered By: Shima Krishnamurthy on 05-07-2025 Calcium [Mass/Vol] 9.4 mg/dL 7.6-11.0 [facility] Serum or plasma urea nitroge n measurement (mass/volume)Ordered By: Shima Krishnamurthy on 05-07-2025 Urea nitrogen [Mass/Vol] 12 mg/dL 4-19 [facility] Sodium levelOrdered By: Juanito Krishnamurthy on 05-07-2025 Sodium [Moles/Vol] 141 mmol/L 133-145 [facility] Trough vancomycin levelOrder ed By: Shima Krishnamurthy on 05-07-2025 Vancomycin trough [Mass/Vol] ug/mL Low 5.0-15.0 [facility] Comment on above: Recommended goal tro ugh [...] therapy recommended for serious lifethreatening infections include:- Kpnmwztmin-Ozbnfjworpna-Zqbodbohv (Ventilator/Healtcare Associated)-Sepsis PLEASE CONTACT PHARMACY SERVICES (#[id number]) FOR INTERPRETATIONOF RESULTS. Vancomycin, Trough Levelon 0 9-08-2025 VANCO, TROUGH < 4.0 Low 5.0-15.0 [facility] Comment on above: Order Comment: 0000 Result [...] (Ventilator/Healtcare Associated) -Sepsis PLEASE CONTACT PHARMACY SERVICES (#[id number]) FOR INTERPRETATION OF RESULTS. Performed By: #### M 100.4001, M100.3000, M100.2000 #### [facility] [address] [place], [place], [id number] White blood cell (WBC) count Ordered By: Shima Krishnamurthy on 05-07-2025 WBC (Bld) [#/Vol] 11.9 10*3/uL High 4.4-11.0 [facility] Abdomen/Pelvis W IV Cont ONL Yon 04-06-2025 Abdomen/Pelvis W IV Cont ONLY [facility] [address] [place], [place] [id number] Abdomen/Pelvis W IV Cont ONLY MR#: [id number] Acct: [id number] Name: CLAUDINE JOSEPH Rep #: [id number] : 1990 F 34 From: Abhijeet Najera MD PCP: Dr. Colette Goode MD Status: [facility] ER Study: Abdomen/Pelvis W IV Cont ONLY Date of Exam: Exam# [id number] Ordering Dr: Rhina Nicole PROCEDURE: ABDOMEN/PELVIS W [...] or pelvic abnormality. 7. Cholecystectomy. Reading Location: [id number] CC: Dr. Colette Goode MD; STACIE Tabor German Tutor: Signed Normal [facility] Absolute lymphocyte countOrd ered By: Rhina Nicole on 04-06-2025 Lymphocytes Auto (Unsp spec) [#/Vol] 1.78 10*3/uL 0.83-4.51 [facility] Absolute neutrophil countOrd ered By: Rhina Nicole on 04-06-2025 Neutrophils (Bld) [#/Vol] 5.9 10*3/uL 2.0-7.7 [facility] Anion gap in Serum or Plasma Ordered By: Rhina Nicole on 04-06-2025 Anion gap [Moles/Vol] 9 mmol/L 5-15 [facility] Automated lymphocyte count a s percentage of total leukocytesOrdered By: Rhina Nicole on 04-06-2025 Lymphocytes/100 WBC Auto (Unsp spec) 20.1 % 19-41 [facility] BUN/creatinine ratioOrdered By: Rhina Nicole on 04-06-2025 Urea nitrogen/Creatinine [Mass ratio] 98.5 mg/mg High 10-20 [facility] Basic Metabolic Profile (BMP )on 04-06-2025 BUN/CRE 98.5 RATIO High - [facility] Comment on above: Performed By: #### M 100.4001, M1.2999, #### [facility] [address] [place], [address] Calcium [Mass/Vol] 9.8 mg/dL Normal 7.6-11.0 [facility] Comment on above: Performed By: #### M 100.4001, M1.2999, #### [facility] [address] [place], [address] Chloride [Moles/Vol] 96 mmol/L Low 98-108 [facility] Comment on above: Performed By: #### M 100.4001, M100.3000, #### [facility] [address] [place], [address] CO2 [Moles/Vol] 38.6 mmol/L High 21.0-32.0 [facility] Comment on above: Performed By: #### M 100.400, .2999, #### [facility] [address] [place], [address] Creatinine [Mass/Vol] 0.27 mg/dL Low 0.70-1.20 [facility] Comment on above: Performed By: #### M 100.400, .2999, #### [facility] [address] [place], [address] GAP 9 Normal 5-15 [facility] Comment on above: Performed By: #### M 100.400, .2999, #### [facility] [address] [place], [address] GFR/1.73 sq M.predicted among non-blacks MDRD (S/P/Bld) [Vol rate/Area] 146 mL/min/{1.73_m2} Normal >60 [facility] Comment on above: Result Comment: mL/m in/1.73m2 CKD-EPI Creatinine Equation (2020) Performed By: #### M 100.4001, .3000, #### [facility] [address] [place], [address] Glucose [Mass/Vol] 232 mg/dL High 70-99 [facility] Comment on above: Performed By: #### M 100.4001, M100.3000, #### [facility] [address] [place], [address] Potassium [Moles/Vol] 5.0 mmol/L Normal 3.3-5.1 [facility] Comment on above: Result Comment: Hemo lysis present, Results??could be affected. ?? Performed By: #### M 100.4001, M100.3000, #### [facility] [address] [place], [address] Sodium [Moles/Vol] 144 mmol/L Normal 133-145 [facility] Comment on above: Performed By: #### M 100.4001, M100.3000, #### [facility] [address] [place], [address] Urea nitrogen [Mass/Vol] 27 mg/dL High 4-19 [facility] Comment on above: Performed By: #### M 100.4001, M100.3000, #### [facility] [address] [place], [address] Basophil percentageOrdered B y: Rhina Nicole on 04-06-2025 Basophils/100 WBC (Bld) 1.1 % High 0-1 [facility] CBC W/Diff, Automatedon Absolute Lymph 1.78 X10 3/uL Normal 0.83-4.51 [facility] Comment on above: Performed By: #### M 100.4001, M100.3000, #### [facility] [address] [place], [address] Absolute Neut 5.9 X10 3/uL Normal 2.0-7.7 [facility] Comment on above: Performed By: #### M 100.4001, M100.3000, #### [facility] [address] [place], [address] Basophils/100 WBC (Bld) 1.1 % High 0-1 [facility] Comment on above: Performed By: #### M 100.4001, M100.3000, #### [facility] [address] [place], [address] Eosinophils/100 WBC (Bld) 2.1 % Normal 0-5 [facility] Comment on above: Performed By: #### M 100.4001, M100.3000, #### [facility] [address] [place], [address] Erythrocyte distribution width (RBC) [Ratio] 14.8 % High 11.6-14.6 [facility] Comment on above: Performed By: #### M 100.4001, M100.3000, #### [facility] [address] [place], [address] Hematocrit (Bld) [Volume fraction] 39.2 % Normal 37-47 [facility] Comment on above: Performed By: #### M 100.4001, M100.3000, #### [facility] [address] [place], [address] Hemoglobin (Bld) [Mass/Vol] 11.3 g/dL Low 12.0-15.0 [facility] Comment on above: Performed By: #### M 100.4001, M100.3000, #### [facility] [address] [place], [address] IG% 0.600 Normal 0.0-0.9 [facility] Comment on above: Result Comment: IG% - Immature Granulocytes (promyelocytes, myelocytes and metamyelocytes) > 1% indicates that a LEFT SHIFT is Present. Performed By: #### M 100.4001, M100.3000, #### [facility] [address] [place], [address] Lymphocytes/100 WBC (Bld) 20.1 % Normal 19-41 [facility] Comment on above: Performed By: #### M 100.4001, M100.3000, #### [facility] [address] [place], [address] MCH (RBC) [Entitic mass] 27.8 pg Normal 27.0-32.0 [facility] Comment on above: Performed By: #### M 100.4001, M100.3000, #### [facility] [address] [place], [address] MCHC (RBC) [Mass/Vol] 28.8 g/dL Low 32-36 [facility] Comment on above: Performed By: #### M 100.4001, 00.3000, #### [facility] [address] [place], [address] MCV (RBC) [Entitic vol] 96.3 fL Normal 81-99 [facility] Comment on above: Performed By: #### M 100.4001, M100.3000, #### [facility] [address] [place], [address] Monocytes/100 WBC (Bld) 9.9 % Normal 0-10 [facility] Comment on above: Performed By: #### M 100.4001, M100.3000, #### [facility] [address] [place], [address] Neutrophils/100 WBC (Bld) 66.2 % Normal 47-70 [facility] Comment on above: Performed By: #### M 100.4001, M100.3000, #### [facility] [address] [place], [address] Nucleated RBC (Bld) [#/Vol] 0 10*3/uL Normal 0-5 [facility] Comment on above: Performed By: #### M 100.4001, M100.3000, #### [facility] [address] [place], [address] Platelet mean volume (Bld) [Entitic vol] 11.0 fL Normal 6.2-12.0 [facility] Comment on above: Performed By: #### M 100.4001, .3000, #### [facility] [address] [place], [address] Platelets (Bld) [#/Vol] 258 10*3/uL Normal 150-450 [facility] Comment on above: Performed By: #### M 100.4001, 00.3000, #### [facility] [address] [place], [address] RBC (Bld) [#/Vol] 4.07 10*6/uL Low 4.2-5.4 [facility] Comment on above: Performed By: #### M 100.4001, .2999, #### [facility] [address] [place], [address] RDW SD 50.8 fl High 35.1-43.9 [facility] Comment on above: Performed By: #### M 100.4001, .3000, #### [facility] [address] [place], [address] WBC (Bld) [#/Vol] 8.9 10*3/uL Normal 4.4-11.0 [facility] Comment on above: Performed By: #### M 100.4001, M100.3000, #### [facility] [address] [place], [address] Carbon dioxide, total [Moles /volume] in Central venous bloodOrdered By: Rhina Nicole on 04-06-2025 CO2 [Moles/Vol] 38.6 mmol/L High 21.0-32.0 [facility] Chloride assayOrdered By: Dara Nicole on 04-06-2025 Chloride [Moles/Vol] 96 mmol/L Low 98-108 [facility] Emergency Department Summary on 04-06-2025 Emergency Department Summary [facility] Medical Records Department [address] [place] [address] Emergency Department Summary 04/06/25 MR#: [id number] Acct: [id number] Name: CLAUDINE JOSEPH Rep #: [id number] : 1990 34 From: Nino Shaver MD [...] she most recently got wound care at [place] but the physician left the practice. She was looking around for new center and established with [place] [facility] 3 weeks ago. About a [...] There is no purulent drainage or cellulitis. [facility] Medical History (Updated 04/06/25 @ 15:44 by [...] (ClearLax) promethazine 12.5 mg rectal 12.5 mg TN Q6H nausea 03/14/25 Unk nown History suppository [...] Blood P (more content not included)... Normal [facility] Eosinophil percentageOrdered By: Rhina Nicole on 04-06-2025 Eosinophils/100 WBC (Bld) 2.1 % 0-5 [facility] Erythrocyte distribution wid th ratioOrdered By: Rhina Nicole on 04-06-2025 Erythrocyte distribution width (RBC) [Ratio] 14.8 % High 11.6-14.6 [facility] Erythrocyte distribution wid th standard deviationOrdered By: Rhina Nicole on 04-06-2025 Erythrocyte distribution width (RBC) [Ratio] 50.8 fl High 35.1-43.9 [facility] Glomerular filtration rate ( GFR) estimation/1.73 sq m using serum, plasma, or whole bOrdered By: Rhina Nicole on 04-06-2025 GFR/1.73 sq M.predicted among non-blacks MDRD (S/P/Bld) [Vol rate/Area] 146 mL/min/{1.73_m2} >60 [facility] Comment on above: mL/min/1.73m2 CKD-EP I Creatinine Equation (2020) Hematocrit Auto (Bld) [Volum e fraction]Ordered By: Rhina Nicole on 04-06-2025 Hematocrit (Bld) [Volume fraction] 39.2 % 37-47 [facility] Hemoglobin measurementOrdere d By: Rhina Nicole on 04-06-2025 Hemoglobin (Bld) [Mass/Vol] 11.3 g/dL Low 12.0-15.0 [facility] Immature granulocytes/100 WB C Auto (Bld)Ordered By: Rhina Nicole on 04-06-2025 Immature granulocytes/100 WBC (Bld) 0.600 % 0.0-0.9 [facility] Comment on above: IG% - Immature Granu locytes (promyelocytes, myelocytes and metamyelocytes) > 1% indicates that a LEFT SHIFT is Present. MCV (mean corpuscular volume ) determinationOrdered By: Rhina Nicole on 04-06-2025 MCV (RBC) [Entitic vol] 96.3 fL 81-99 [facility] Mean corpuscular hemoglobin (MCH) determinationOrdered By: Rhina Nicole on 04-06-2025 MCH (RBC) [Entitic mass] 27.8 pg 27.0-32.0 [facility] Mean corpuscular hemoglobin concentration (MCHC) determinationOrdered By: Rhina Nicole on 04-06-2025 MCHC (RBC) [Mass/Vol] 28.8 g/dL Low 32-36 [facility] Mean platelet volume determi nationOrdered By: Rhina Nicole on 04-06-2025 Platelet mean volume (Bld) [Entitic vol] 11.0 fL 6.2-12.0 [facility] Monocyte percentageOrdered B y: Rhina Nicole on 04-06-2025 Monocytes/100 WBC (Bld) 9.9 % 0-10 [facility] Neutrophil percentageOrdered By: Rhina Nicole on 04-06-2025 Neutrophils/100 WBC (Bld) 66.2 % 47-70 [facility] Nucleated red blood cell per centageOrdered By: Rhina Nicole on 04-06-2025 Nucleated RBC/100 WBC (Bld) [Ratio] 0 % 0-5 [facility] Platelet countOrdered By: Dara Nicole on 04-06-2025 Platelets (Bld) [#/Vol] 258 10*3/uL 150-450 [facility] Potassium measurement (mass/ volume)Ordered By: Rhina Nicole on 04-06-2025 Potassium (Unsp spec) [Mass/Vol] 5.0 mmol/L 3.3-5.1 [facility] Comment on above: Hemolysis present, R esults could be affected. RBC Auto (Bld) [#/Vol]Ordere d By: Rhina Nicole on 04-06-2025 RBC (Bld) [#/Vol] 4.07 10*6/uL Low 4.2-5.4 [facility] Serum creatinine measurement (mass/volume)Ordered By: Rhina Nicole on 04-06-2025 Creatinine [Mass/Vol] 0.27 mg/dL Low 0.70-1.20 [facility] Serum glucose measurement (m ass/volume)Ordered By: Rhina Nicole on 04-06-2025 Glucose [Mass/Vol] 232 mg/dL High 70-99 [facility] Serum or plasma calcium robin urement (mass/volume)Ordered By: Rhina Nicole on 04-06-2025 Calcium [Mass/Vol] 9.8 mg/dL 7.6-11.0 [facility] Serum or plasma urea nitroge n measurement (mass/volume)Ordered By: Rhina Nicole on 04-06-2025 Urea nitrogen [Mass/Vol] 27 mg/dL High 4-19 [facility] Sodium levelOrdered By: Rhina Nicole on 04-06-2025 Sodium [Moles/Vol] 144 mmol/L 133-145 [facility] White blood cell (WBC) count Ordered By: Rhina Nicole on 04-06-2025 WBC (Bld) [#/Vol] 8.9 10*3/uL 4.4-11.0 [facility] Absolute lymphocyte countOrd ered By: Onelia Gaspar on 04-05-2025 Lymphocytes Auto (Unsp spec) [#/Vol] 1.82 10*3/uL 0.83-4.51 [facility] Absolute neutrophil countOrd ered By: Onelia Gaspar on 04-05-2025 Neutrophils (Bld) [#/Vol] 9.1 10*3/uL High 2.0-7.7 [facility] Anion gap in Serum or Plasma Ordered By: Onelia Hubert on 04-05-2025 Anion gap [Moles/Vol] 11 mmol/L 5-15 [facility] Automated lymphocyte count a s percentage of total leukocytesOrdered By: Onelia Hubert on 04-05-2025 Lymphocytes/100 WBC Auto (Unsp spec) 14.9 % Low 19-41 [facility] BUN/creatinine ratioOrdered By: Onelia Gaspar on 04-05-2025 Urea nitrogen/Creatinine [Mass ratio] 83.3 mg/mg High 10-20 [facility] Basic Metabolic Profile (BMP )on 04-05-2025 BUN/CRE 83.3 RATIO High 10- [facility] Comment on above: Performed By: #### M 100.4001, M1.2999, #### [facility] [address] [place], [address] Calcium [Mass/Vol] 9.7 mg/dL Normal 7.6-11.0 [facility] Comment on above: Performed By: #### M 100.4001, M1.2999, #### [facility] [address] [place], [address] Chloride [Moles/Vol] 99 mmol/L Normal 98-108 [facility] Comment on above: Performed By: #### M 100.4001, M100.3000, #### [facility] [address] [place], [address] CO2 [Moles/Vol] 36.2 mmol/L High 21.0-32.0 [facility] Comment on above: Performed By: #### M 100.4001, M100.3000, #### [facility] [address] [place], [address] Creatinine [Mass/Vol] 0.32 mg/dL Low 0.70-1.20 [facility] Comment on above: Performed By: #### M 100.4001, M100.3000, #### [facility] [address] [place], [address] GAP 11 Normal 5-15 [facility] Comment on above: Performed By: #### M 100.4001, M100.3000, #### [facility] [address] [place], [address] GFR/1.73 sq M.predicted among non-blacks MDRD (S/P/Bld) [Vol rate/Area] 140 mL/min/{1.73_m2} Normal >60 [facility] Comment on above: Result Comment: mL/m in/1.73m2 CKD-EPI Creatinine Equation (2020) Performed By: #### M 100.4001, M1.3000, #### [facility] [address] [place], [address] Glucose [Mass/Vol] 180 mg/dL High 70-99 [facility] Comment on above: Performed By: #### M 100.4001, 00.2999, #### [facility] [address] [place], [address] Potassium [Moles/Vol] 3.7 mmol/L Normal 3.3-5.1 [facility] Comment on above: Result Comment: Hemo lysis present, Results??could be affected. ?? Performed By: #### M 100.4001, M100.3000, #### [facility] [address] [place], [address] Sodium [Moles/Vol] 146 mmol/L High 133-145 [facility] Comment on above: Performed By: #### M 100.4001, M100.3000, #### [facility] [address] [place], [address] Urea nitrogen [Mass/Vol] 27 mg/dL High 4-19 [facility] Comment on above: Performed By: #### M 100.4001, M100.3000, #### [facility] [address] [place], [address] Basophil percentageOrdered B y: Onelia Gaspar on 04-05-2025 Basophils/100 WBC (Bld) 0.8 % 0-1 [facility] CBC W/Diff, Automatedon Absolute Lymph 1.82 X10 3/uL Normal 0.83-4.51 [facility] Comment on above: Performed By: #### M 100.4001, M100.3000, #### [facility] [address] [place], [address] Absolute Neut 9.1 X10 3/uL High 2.0-7.7 [facility] Comment on above: Performed By: #### M 100.4001, M100.3000, #### [facility] [address] [place], [address] Basophils/100 WBC (Bld) 0.8 % Normal 0-1 [facility] Comment on above: Performed By: #### M 100.4001, M100.3000, #### [facility] [address] [place], [address] Eosinophils/100 WBC (Bld) 1.4 % Normal 0-5 [facility] Comment on above: Performed By: #### M 100.4001, M100.3000, #### [facility] [address] [place], [address] Erythrocyte distribution width (RBC) [Ratio] 14.7 % High 11.6-14.6 [facility] Comment on above: Performed By: #### M 100.4001, M100.3000, M12000 #### [facility] [address] [place], [address] Hematocrit (Bld) [Volume fraction] 42.3 % Normal 37-47 [facility] Comment on above: Performed By: #### M 100.4001, M100.3000, #### [facility] [address] [place], [address] Hemoglobin (Bld) [Mass/Vol] 12.5 g/dL Normal 12.0-15.0 [facility] Comment on above: Performed By: #### M 100.400, .3000, #### [facility] [address] [place], [address] IG% 0.600 Normal 0.0-0.9 [facility] Comment on above: Result Comment: IG% - Immature Granulocytes (promyelocytes, myelocytes and metamyelocytes) > 1% indicates that a LEFT SHIFT is Present. Performed By: #### M 100.4001, M100.3000, #### [facility] [address] [place], [address] Lymphocytes/100 WBC (Bld) 14.9 % Low 19-41 [facility] Comment on above: Performed By: #### M 100.4001, M100.3000, #### [facility] [address] [place], [address] MCH (RBC) [Entitic mass] 27.6 pg Normal 27.0-32.0 [facility] Comment on above: Performed By: #### M 100.4001, M100.3000, #### [facility] [address] [place], [address] MCHC (RBC) [Mass/Vol] 29.6 g/dL Low 32-36 [facility] Comment on above: Performed By: #### M 100.4001, M100.3000, #### [facility] [address] [place], [address] MCV (RBC) [Entitic vol] 93.4 fL Normal 81-99 [facility] Comment on above: Performed By: #### M 100.4001, M100.3000, #### [facility] [address] [place], [address] Monocytes/100 WBC (Bld) 7.5 % Normal 0-10 [facility] Comment on above: Performed By: #### M 100.4001, M100.3000, #### [facility] [address] [place], [address] Neutrophils/100 WBC (Bld) 74.8 % High 47-70 [facility] Comment on above: Performed By: #### M 100.4001, M100.3000, #### [facility] [address] [place], [address] Nucleated RBC (Bld) [#/Vol] 0 10*3/uL Normal 0-5 [facility] Comment on above: Performed By: #### M 100.4001, M100.3000, #### [facility] [address] [place], [address] Platelet mean volume (Bld) [Entitic vol] 11.6 fL Normal 6.2-12.0 [facility] Comment on above: Performed By: #### M 100.4001, M100.3000, #### [facility] [address] [place], [address] Platelets (Bld) [#/Vol] 271 10*3/uL Normal 150-450 [facility] Comment on above: Performed By: #### M 100.4001, M100.3000, #### [facility] [address] [place], [address] RBC (Bld) [#/Vol] 4.53 10*6/uL Normal 4.2-5.4 [facility] Comment on above: Performed By: #### M 100.4001, M100.3000, M100.1999 #### [facility] [address] [place], [address] RDW SD 49.2 fl High 35.1-43.9 [facility] Comment on above: Performed By: #### M 100.4001, M100.3000, M100.1999 #### [facility] [address] [place], [address] WBC (Bld) [#/Vol] 12.2 10*3/uL High 4.4-11.0 [facility] Comment on above: Performed By: #### M 100.4001, M100.3000, .1999 #### [facility] [address] [place], [address] Carbon dioxide, total [Moles /volume] in Central venous bloodOrdered By: Onelia Gaspar on 04-05-2025 CO2 [Moles/Vol] 36.2 mmol/L High 21.0-32.0 [facility] Chloride assayOrdered By: Gonzalo Gaspar on 04-05-2025 Chloride [Moles/Vol] 99 mmol/L 98-108 [facility] Eosinophil percentageOrdered By: Onelia Gaspar on 04-05-2025 Eosinophils/100 WBC (Bld) 1.4 % 0-5 [facility] Erythrocyte distribution wid th ratioOrdered By: Onelia Gaspar on 04-05-2025 Erythrocyte distribution width (RBC) [Ratio] 14.7 % High 11.6-14.6 [facility] Erythrocyte distribution wid th standard deviationOrdered By: Onelia Gaspar on 04-05-2025 Erythrocyte distribution width (RBC) [Ratio] 49.2 fl High 35.1-43.9 [facility] Glomerular filtration rate ( GFR) estimation/1.73 sq m using serum, plasma, or whole bOrdered By: Onelia Gaspar on 04-05-2025 GFR/1.73 sq M.predicted among non-blacks MDRD (S/P/Bld) [Vol rate/Area] 140 mL/min/{1.73_m2} >60 [facility] Comment on above: mL/min/1.73m2 CKD-EP I Creatinine Equation (2020) Hematocrit Auto (Bld) [Volum e fraction]Ordered By: Onelia Gaspar on 04-05-2025 Hematocrit (Bld) [Volume fraction] 42.3 % 37-47 [facility] Hemoglobin measurementOrdere d By: Onelia Gaspar on 04-05-2025 Hemoglobin (Bld) [Mass/Vol] 12.5 g/dL 12.0-15.0 [facility] Immature granulocytes/100 WB C Auto (Bld)Ordered By: Onelia Gaspar on 04-05-2025 Immature granulocytes/100 WBC (Bld) 0.600 % 0.0-0.9 [facility] Comment on above: IG% - Immature Granu locytes (promyelocytes, myelocytes and metamyelocytes) > 1% indicates that a LEFT SHIFT is Present. MCV (mean corpuscular volume ) determinationOrdered By: Onelia Gaspar on 04-05-2025 MCV (RBC) [Entitic vol] 93.4 fL 81-99 [facility] Mean corpuscular hemoglobin (MCH) determinationOrdered By: Onelia Gaspar 04-05-2025 MCH (RBC) [Entitic mass] 27.6 pg 27.0-32.0 [facility] Mean corpuscular hemoglobin concentration (MCHC) determinationOrdered By: Onelia Gaspar on 04-05-2025 MCHC (RBC) [Mass/Vol] 29.6 g/dL Low 32-36 [facility] Mean platelet volume determi nationOrdered By: Onelia Gaspar on 04-05-2025 Platelet mean volume (Bld) [Entitic vol] 11.6 fL 6.2-12.0 [facility] Monocyte percentageOrdered B y: Onelia Gaspar on 04-05-2025 Monocytes/100 WBC (Bld) 7.5 % 0-10 [facility] Neutrophil percentageOrdered By: Onelia Gaspar on 04-05-2025 Neutrophils/100 WBC (Bld) 74.8 % High 47-70 [facility] Nucleated red blood cell per centageOrdered By: Onelia Gaspar on 04-05-2025 Nucleated RBC/100 WBC (Bld) [Ratio] 0 % 0-5 [facility] Platelet countOrdered By: Gonzalo Gaspar on 04-05-2025 Platelets (Bld) [#/Vol] 271 10*3/uL 150-450 [facility] Potassium measurement (mass/ volume)Ordered By: Onelia Gaspar on 04-05-2025 Potassium (Unsp spec) [Mass/Vol] 3.7 mmol/L 3.3-5.1 [facility] Comment on above: Hemolysis present, R esults could be affected. RBC Auto (Bld) [#/Vol]Ordere d By: Onelia Gaspar on 04-05-2025 RBC (Bld) [#/Vol] 4.53 10*6/uL 4.2-5.4 [facility] Serum creatinine measurement (mass/volume)Ordered By: Onelia Gaspar on 04-05-2025 Creatinine [Mass/Vol] 0.32 mg/dL Low 0.70-1.20 [facility] Serum glucose measurement (m ass/volume)Ordered By: Onelia Gaspar on 04-05-2025 Glucose [Mass/Vol] 180 mg/dL High 70-99 [facility] Serum or plasma calcium robin urement (mass/volume)Ordered By: Onelia Gaspar on 04-05-2025 Calcium [Mass/Vol] 9.7 mg/dL 7.6-11.0 [facility] Serum or plasma urea nitroge n measurement (mass/volume)Ordered By: Onelia Gaspar on 04-05-2025 Urea nitrogen [Mass/Vol] 27 mg/dL High 4-19 [facility] Sodium levelOrdered By: Abe Gaspar on 04-05-2025 Sodium [Moles/Vol] 146 mmol/L High 133-145 [facility] White blood cell (WBC) count Ordered By: Onelia Gaspar on 04-05-2025 WBC (Bld) [#/Vol] 12.2 10*3/uL High 4.4-11.0 [facility] Culture, Anaerobic Any Sourc omuar 04-03-2025 CUAN List Antibiotics Las t 48 [...] bivia Beta Lactamase-Reportable Positive Anaerobic cocci Normal [facility] Comment on above: Performed By: #### M 100.4001, M100.3000, M100.1999 #### [facility] [address] [place], [address] Wound Cultureon 04-02-2025 List Antibiotics Las t [...] Pip+Tazo Islt QUE 32 TMP SMX Islt QUE <=20 S Normal [facility] Comment on above: Performed By: #### M 100.4001, M1.2999, #### [facility] [address] [place], [place], [id number] Gram Stainon 03-30-2025 GS List Antibiotics Las t 48 Hours? CEFDINIR List Antibiotics to be Started? NONE Gram Stain Rare Gram positive cocci No Epithelial cells Normal [facility] Comment on above: Performed By: #### M 100.4001, M1.2999, #### [facility] [address] [place], [place], [address] Anaerobic cultureOrdered By: Onelia Gaspar on 03-29-2025 Bacteria identified Anaer cx Nom (Unsp spec) Prevotella bivia Abnormal [facility] Bacteria identified Anaer cx Nom (Unsp spec) Anaerobic cocci Abnormal [facility] Gram stainOrdered By: Mariama Gaspar on 03-29-2025 Microscopic observation Gram stain Nom (Unsp spec) [facility] #1 Studies have confirmed [...] cocci Prevotella bivia Beta Lactamase-Reportable Positive Normal [facility] Comment on above: Performed By: #### M 100.4001, M1, #### [facility] [address] [place], [place], [address] Wound Cultureon 03-17-2025 WC Klebsiella aerogenes Amount [...] R Vancomycin Islt QUE 1 S Normal [facility] Comment on above: Performed By: #### M 100.4001, .1999, M100.2999 #### [facility] [address] [facility] [place], [place], [address] Gram Stainon 03-15-2025 GS Gram Stain No organisms seen No cells seen Normal [facility] Comment on above: Performed By: #### M 100.4001, .1999, M100.3000 #### [facility] [address] [facility] [address] [place], [place], [address] Prealbumin [id number] Prealbumin [Mass/Vol] 24 mg/dL Normal 14-35 [facility] Comment on above: Result Comment: Perf ormed at: CB - [facility] [address] [id number] Secretary Of Police: Chacorta Sin PhD, Phone: [phone] Performed By: #### M 100.4001, M1.2999, #### [facility] [address] [facility] [address] [place], [place], [address] Absolute lymphocyte countOrd ered By: Onelia Gaspar on 03-14-2025 Lymphocytes Auto (Unsp spec) [#/Vol] 1.93 10*3/uL 0.83-4.51 [facility] Absolute neutrophil countOrd ered By: Onelia Hubert on 03-14-2025 Neutrophils (Bld) [#/Vol] 6.9 10*3/uL 2.0-7.7 [facility] Anaerobic cultureOrdered By: Jaimee Marshall on 03-14-2025 Bacteria identified Anaer cx Nom (Unsp spec) Anaerobic cocci Abnormal [facility] Bacteria identified Anaer cx Nom (Unsp spec) Prevotella bivia Abnormal [facility] Anion gap in Serum or Plasma Ordered By: Onelia Gaspar on 03-14-2025 Anion gap [Moles/Vol] 11 mmol/L 5-15 [facility] Automated lymphocyte count a s percentage of total leukocytesOrdered By: Onelia Gaspar on 03-14-2025 Lymphocytes/100 WBC Auto (Unsp spec) 19.2 % 19-41 [facility] BUN/creatinine ratioOrdered By: Onelia Gaspar on 03-14-2025 Urea nitrogen/Creatinine [Mass ratio] 52.7 mg/mg High 10-20 [facility] Basophil percentageOrdered B y: Onelia Gaspar on 03-14-2025 Basophils/100 WBC (Bld) 1.0 % 0-1 [facility] Bilirubin, totalOrdered By: Onelia Gaspar on 03-14-2025 Bilirubin [Mass/Vol] 0.19 mg/dL 0.00-1.30 [facility] CBC W/Diff, Automatedon 02-27 Absolute Lymph 1.93 X10 3/uL Normal 0.83-4.51 [facility] Comment on above: Performed By: #### L 3300.6400, L503.6030, L503.6550, L100.0100, L500.4050 #### [facility] [address] [place], [place], [id number] Absolute Neut 6.9 X10 3/uL Normal 2.0-7.7 [facility] Comment on above: Performed By: #### L 3300.6400, L503.6030, L503.6550, L100.0100, L500.4050 #### [facility] [address] [place], [address] Basophils/100 WBC (Bld) 1.0 % Normal 0-1 [facility] Comment on above: Performed By: #### L 3300.6400, L503.6030, L503.6550, L100.0100, L500.4050 #### [facility] [address] [place], [address] Eosinophils/100 WBC (Bld) 1.7 % Normal 0-5 [facility] Comment on above: Performed By: #### L 3300.6400, L503.6030, L503.6550, L100.0100, L500.4050 #### [facility] [address] [place], [address] Erythrocyte distribution width (RBC) [Ratio] 14.1 % Normal 11.6-14.6 [facility] Comment on above: Performed By: #### L 3300.6400, L503.6030, L503.6550, L100.0100, L500.4050 #### [facility] [address] [place], [address] Hematocrit (Bld) [Volume fraction] 39.8 % Normal 37-47 [facility] Comment on above: Performed By: #### L 3300.6400, L503.6030, L503.6550, L100.0100, L500.4050 #### [facility] [address] [place], [address] Hemoglobin (Bld) [Mass/Vol] 12.1 g/dL Normal 12.0-15.0 [facility] Comment on above: Performed By: #### L 3300.6400, L503.6030, L503.6550, L100.0100, L500.4050 #### [facility] [address] [place], [address] IG% 0.400 Normal 0.0-0.9 [facility] Comment on above: Result Comment: IG% - Immature Granulocytes (promyelocytes, myelocytes and metamyelocytes) > 1% indicates that a LEFT SHIFT is Present. Performed By: #### L 3300.6400, L503.6030, L503.6550, L100.0100, L500.4050 #### [facility] [address] [place], [address] Lymphocytes/100 WBC (Bld) 19.2 % Normal 19-41 [facility] Comment on above: Performed By: #### L 3300.6400, L503.6030, L503.6550, L100.0100, L500.4050 #### [facility] [address] [place], [address] MCH (RBC) [Entitic mass] 27.6 pg Normal 27.0-32.0 [facility] Comment on above: Performed By: #### L 3300.6400, L503.6030, L503.6550, L100.0100, L500.4050 #### [facility] [address] [place], [address] MCHC (RBC) [Mass/Vol] 30.4 g/dL Low 32-36 [facility] Comment on above: Performed By: #### L 3300.6400, L503.6030, L503.6550, L100.0100, L500.4050 #### [facility] [address] [place], [address] MCV (RBC) [Entitic vol] 90.7 fL Normal 81-99 [facility] Comment on above: Performed By: #### L 3300.6400, L503.6030, L503.6550, L100.0100, L500.4050 #### [facility] [address] [place], [address] Monocytes/100 WBC (Bld) 9.4 % Normal 0-10 [facility] Comment on above: Performed By: #### L 3300.6400, L503.6030, L503.6550, L100.0100, L500.4050 #### [facility] [address] [place], [address] Neutrophils/100 WBC (Bld) 68.3 % Normal 47-70 [facility] Comment on above: Performed By: #### L 3300.6400, L503.6030, L503.6550, L100.0100, L500.4050 #### [facility] [address] [place], [address] Nucleated RBC (Bld) [#/Vol] 0 10*3/uL Normal 0-5 [facility] Comment on above: Performed By: #### L 3300.6400, L503.6030, L503.6550, L100.0100, L500.4050 #### [facility] [address] [place], [address] Platelet mean volume (Bld) [Entitic vol] 10.4 fL Normal 6.2-12.0 [facility] Comment on above: Performed By: #### L 3300.6400, L503.6030, L503.6550, L100.0100, L500.4050 #### [facility] [address] [place], [address] Platelets (Bld) [#/Vol] 306 10*3/uL Normal 150-450 [facility] Comment on above: Performed By: #### L 3300.6400, L503.6030, L503.6550, L100.0100, L500.4050 #### [facility] [address] [place], [address] RBC (Bld) [#/Vol] 4.39 10*6/uL Normal 4.2-5.4 [facility] Comment on above: Performed By: #### L 3300.6400, L503.6030, L503.6550, L100.0100, L500.4050 #### [facility] [address] [place], [address] RDW SD 47.1 fl High 35.1-43.9 [facility] Comment on above: Performed By: #### L 3300.6400, L503.6030, L503.6550, L100.0100, L500.4050 #### [facility] [address] [place], [address] WBC (Bld) [#/Vol] 10.1 10*3/uL Normal 4.4-11.0 [facility] Comment on above: Performed By: #### L 3300.6400, L503.6030, L503.6550, L100.0100, L500.4050 #### [facility] [address] [place], [address] Carbon dioxide, total [Moles /volume] in Central venous bloodOrdered By: Onelia Gaspar on 03-14-2025 CO2 [Moles/Vol] 31.1 mmol/L 21.0-32.0 [facility] Chloride assayOrdered By: Gonzalo Gaspar on 03-14-2025 Chloride [Moles/Vol] 102 mmol/L 98-108 [facility] Comprehensive Metabolic Prof ilon 03-14-2025 Albumin [Mass/Vol] 3.9 g/dL Normal 3.5-5.0 [facility] Comment on above: Performed By: #### L 3300.6400, L503.6030, L503.6550, L100.0100, L500.4050 #### [facility] [address] [place], [address] Albumin/Globulin [Mass ratio] 1.2 {ratio} Normal 0.9-2.4 [facility] Comment on above: Performed By: #### L 3300.6400, L503.6030, L503.6550, L100.0100, L500.4050 #### [facility] [address] [place], [address] ALK PHOS 197 U/L High 35-104 [facility] Comment on above: Performed By: #### L 3300.6400, L503.6030, L503.6550, L100.0100, L500.4050 #### [facility] [address] [place], [address] ALT [Catalytic activity/Vol] 24 U/L Normal <=34 [facility] Comment on above: Performed By: #### L 3300.6400, L503.6030, L503.6550, L100.0100, L500.4050 #### [facility] [address] [place], [address] AST [Catalytic activity/Vol] 21 U/L Normal <=31 [facility] Comment on above: Performed By: #### L 3300.6400, L503.6030, L503.6550, L100.0100, L500.4050 #### [facility] [address] [place], [address] Bilirubin [Mass/Vol] 0.19 mg/dL Normal 0.00-1.30 [facility] Comment on above: Performed By: #### L 3300.6400, L503.6030, L503.6550, L100.0100, L500.4050 #### [facility] [address] [place], [address] BUN/CRE 52.7 RATIO High 10-20 [facility] Comment on above: Performed By: #### L 3300.6400, L503.6030, L503.6550, L100.0100, L500.4050 #### [facility] [address] [place], [address] Calcium [Mass/Vol] 9.5 mg/dL Normal 7.6-11.0 [facility] Comment on above: Performed By: #### L 3300.6400, L503.6030, L503.6550, L100.0100, L500.4050 #### [facility] [address] [place], [address] Chloride [Moles/Vol] 102 mmol/L Normal 98-108 [facility] Comment on above: Performed By: #### L 3300.6400, L503.6030, L503.6550, L100.0100, L500.4050 #### [facility] [address] [place], [address] CO2 [Moles/Vol] 31.1 mmol/L Normal 21.0-32.0 [facility] Comment on above: Performed By: #### L 3300.6400, L503.6030, L503.6550, L100.0100, L500.4050 #### [facility] [address] [place], [address] Creatinine [Mass/Vol] 0.28 mg/dL Low 0.70-1.20 [facility] Comment on above: Performed By: #### L 3300.6400, L503.6030, L503.6550, L100.0100, L500.4050 #### [facility] [address] [place], [address] ECRCL 152.75 ml/min Normal 50-250 [facility] Comment on above: Performed By: #### L 3300.6400, L503.6030, L503.6550, L100.0100, L500.4050 #### [facility] [address] [place], [address] GAP 11 Normal 5-15 [facility] Comment on above: Performed By: #### L 3300.6400, L503.6030, L503.6550, L100.0100, L500.4050 #### [facility] [address] [place], [address] GFR/1.73 sq M.predicted among non-blacks MDRD (S/P/Bld) [Vol rate/Area] 145 mL/min/{1.73_m2} Normal >60 [facility] Comment on above: Result Comment: mL/m in/1.73m2 CKD-EPI Creatinine Equation (2020) Performed By: #### L 3300.6400, L503.6030, L503.6550, L100.0100, L500.4050 #### [facility] [address] [place], [address] Globulin (S) [Mass/Vol] 3.3 g/dL Normal 2.2-4.2 [facility] Comment on above: Performed By: #### L 3300.6400, L503.6030, L503.6550, L100.0100, L500.4050 #### [facility] [address] [place], [address] Glucose [Mass/Vol] 94 mg/dL Normal 70-99 [facility] Comment on above: Performed By: #### L 3300.6400, L503.6030, L503.6550, L100.0100, L500.4050 #### [facility] [address] [place], [address] Potassium [Moles/Vol] 3.9 mmol/L Normal 3.3-5.1 [facility] Comment on above: Performed By: #### L 3300.6400, L503.6030, L503.6550, L100.0100, L500.4050 #### [facility] [address] [place], [address] Sodium [Moles/Vol] 143 mmol/L Normal 133-145 [facility] Comment on above: Performed By: #### L 3300.6400, L503.6030, L503.6550, L100.0100, L500.4050 #### [facility] [address] [place], [address] T PROT 7.2 g/dL Normal 5.9-8.4 [facility] Comment on above: Performed By: #### L 3300.6400, L503.6030, L503.6550, L100.0100, L500.4050 #### [facility] [address] [place], [address] Urea nitrogen [Mass/Vol] 15 mg/dL Normal 4-19 [facility] Comment on above: Performed By: #### L 3300.6400, L503.6030, L503.6550, L100.0100, L500.4050 #### [facility] [address] [place], [address] Eosinophil percentageOrdered By: Onelia Gaspar on 03-14-2025 Eosinophils/100 WBC (Bld) 1.7 % 0-5 [facility] Erythrocyte distribution wid th ratioOrdered By: Onelia Gaspar on 03-14-2025 Erythrocyte distribution width (RBC) [Ratio] 14.1 % 11.6-14.6 [facility] Erythrocyte distribution wid th standard deviationOrdered By: Onelia Gaspar on 03-14-2025 Erythrocyte distribution width (RBC) [Ratio] 47.1 fl High 35.1-43.9 [facility] Ferritinon 03-14-2025 Ferritin [Mass/Vol] 21 ng/mL Low 22-378 [facility] Comment on above: Performed By: #### M 100.4001, M100.3000, M100.2000 #### [facility] [address] [place], [address] Glomerular filtration rate ( GFR) estimation/1.73 sq m using serum, plasma, or whole bOrdered By: Onelia Gaspar on 03-14-2025 GFR/1.73 sq M.predicted among non-blacks MDRD (S/P/Bld) [Vol rate/Area] 145 mL/min/{1.73_m2} >60 [facility] Comment on above: mL/min/1.73m2 CKD-EP I Creatinine Equation (2020) Gram stainOrdered By: Jaimee bledsoe on 03-14-2025 Microscopic observation Gram stain Nom (Unsp spec) [facility] HIP, UNI W/ Pelvis 2-3 Views on 03-14-2025 HIP, UNI W/ Pelvis 2-3 Views [facility] [address] [place], [place] [id number] HIP, UNI W/ Pelvis 2-3 Views MR#: [id number] Acct: [id number] Name: CLAUDINE JOSEPH Rep #: [id number] : 1990 F 34 From: Wilder Walter MD PCP: Dr. Colette Goode MD Status: REG RCR Study: HIP, UNI W/ Pelvis 2-3 Views Date of Exam: Exam# [id number] Ordering Dr: Jaimee Marshall NP N P-C EXAM: XR Right Hip With [...] scan or MRI is recommended. Reading Location: [facility] CC: RETAIL SERVICE REPRESENTATIVE-C Jaimee Marshall; Dr. Colette Goode MD German Tutor: Signed Normal [facility] Hematocrit Auto (Bld) [Volum e fraction]Ordered By: Onelia Hubert on 03-14-2025 Hematocrit (Bld) [Volume fraction] 39.8 % 37-47 [facility] Hemoglobin measurementOrdere d By: Onelia Andradehn on 03-14-2025 Hemoglobin (Bld) [Mass/Vol] 12.1 g/dL 12.0-15.0 [facility] Immature granulocytes/100 WB C Auto (Bld)Ordered By: Onelia Andradehn on 03-14-2025 Immature granulocytes/100 WBC (Bld) 0.400 % 0.0-0.9 [facility] Comment on above: IG% - Immature Granu locytes (promyelocytes, myelocytes and metamyelocytes) > 1% indicates that a LEFT SHIFT is Present. Iron measurement (mass/mass) Ordered By: Onelia Andradehn on 03-14-2025 Iron (Unsp spec) [Mass/Mass] 37 ug/dL Low 50-170 [facility] Iron+Iron Binding Capacityon 03-14-2025 Iron [Mass/Vol] 37 ug/dL Low 50-170 [facility] Comment on above: Performed By: #### M 100.4001, M100.3000, M1 #### [facility] [address] [place], [address] IRON SATURATION 10.0 Low 13-59 [facility] Comment on above: Performed By: #### M 100.4001, M100.3000, M1 #### [facility] [address] [place], [address] TIBC 373 ug/dL Normal 250-450 [facility] Comment on above: Performed By: #### M 100.4001, M100.3000, M1 #### [facility] [address] [place], [address] UIBC 336 ug/dL Normal 228-428 [facility] Comment on above: Performed By: #### M 100.4001, M100.3000, M1 #### [facility] [address] [place], [address] Laboratory - Chemistry and C hemistry - challengeOrdered By: Onelia Gaspar on 03-14-2025 AST [Catalytic activity/Vol] 21 U/L <32 [facility] MCV (mean corpuscular volume ) determinationOrdered By: Onelia Gaspar on 03-14-2025 MCV (RBC) [Entitic vol] 90.7 fL 81-99 [facility] Mean corpuscular hemoglobin (MCH) determinationOrdered By: Onelia Gaspar on 03-14-2025 MCH (RBC) [Entitic mass] 27.6 pg 27.0-32.0 [facility] Mean corpuscular hemoglobin concentration (MCHC) determinationOrdered By: Onelia Gaspar on 03-14-2025 MCHC (RBC) [Mass/Vol] 30.4 g/dL Low 32-36 [facility] Mean platelet volume determi nationOrdered By: Onelia Gaspar on 03-14-2025 Platelet mean volume (Bld) [Entitic vol] 10.4 fL 6.2-12.0 [facility] Monocyte percentageOrdered B y: Onelia Gaspar on 03-14-2025 Monocytes/100 WBC (Bld) 9.4 % 0-10 [facility] Neutrophil percentageOrdered By: Onelia Gaspar on 03-14-2025 Neutrophils/100 WBC (Bld) 68.3 % 47-70 [facility] No Panel InformationOrdered By: Onelia Gaspar on 03-14-2025 Unsaturated Iron Binding Capacity 336 ug/dL 228-428 [facility] Nucleated red blood cell per centageOrdered By: Onelia Gaspar on 03-14-2025 Nucleated RBC/100 WBC (Bld) [Ratio] 0 % 0-5 [facility] Platelet countOrdered By: Goznalo Gaspar on 03-14-2025 Platelets (Bld) [#/Vol] 306 10*3/uL 150-450 [facility] Potassium measurement (mass/ volume)Ordered By: Onelia Gaspar on 03-14-2025 Potassium (Unsp spec) [Mass/Vol] 3.9 mmol/L 3.3-5.1 [facility] RBC Auto (Bld) [#/Vol]Ordere d By: Onelia Gaspar on 03-14-2025 RBC (Bld) [#/Vol] 4.39 10*6/uL 4.2-5.4 [facility] Serum creatinine measurement (mass/volume)Ordered By: Onelia Gaspar on 03-14-2025 Creatinine [Mass/Vol] 0.28 mg/dL Low 0.70-1.20 [facility] Serum globulin measurementOr dered By: Onelia Gaspar on 03-14-2025 Globulin (S) [Mass/Vol] 3.3 g/dL 2.2-4.2 [facility] Serum glucose measurement (m ass/volume)Ordered By: Onelia Gaspar on 03-14-2025 Glucose [Mass/Vol] 94 mg/dL 70-99 [facility] Serum or plasma alanine morrissey otransferase (ALT) measurementOrdered By: Onelia Gaspar on 03-14-2025 ALT [Catalytic activity/Vol] 24 U/L <35 [facility] Serum or plasma albumin robin urement (mass/volume)Ordered By: Onelia Gaspar on 03-14-2025 Albumin [Mass/Vol] 3.9 g/dL 3.5-5.0 [facility] Serum or plasma albumin/glob ulin mass ratioOrdered By: Onelia Gaspar on 03-14-2025 Albumin/Globulin [Mass ratio] 1.2 {ratio} 0.9-2.4 [facility] Serum or plasma alkaline delmi sphatase measurementOrdered By: Onelia Gaspar on 03-14-2025 ALP [Catalytic activity/Vol] 197 U/L High 35-104 [facility] Serum or plasma calcium robin urement (mass/volume)Ordered By: Onelia Gaspar on 03-14-2025 Calcium [Mass/Vol] 9.5 mg/dL 7.6-11.0 [facility] Serum or plasma ferritin milagro surement (mass/volume)Ordered By: Onelia Gaspar on 03-14-2025 Ferritin [Mass/Vol] 21 ng/mL Low 22-378 [facility] Serum or plasma iron saturat ion measurement (mass fraction)Ordered By: Onelia Gaspar on 03-14-2025 Iron saturation [Mass fraction] 10.0 % Low 13-59 [facility] Serum or plasma urea nitroge n measurement (mass/volume)Ordered By: Onelia Gaspar on 03-14-2025 Urea nitrogen [Mass/Vol] 15 mg/dL 4-19 [facility] Serum prealbumin measurement by immunoassayOrdered By: Onelia Gaspar on 03-14-2025 Prealbumin [Mass/Vol] 24 mg/dL 14-35 [facility] Comment on above: Performed at: [address] [id number] Director: Chacorta Sin PhD, Phone: [phone] Sodium levelOrdered By: Abe manuela Hubert on 03-14-2025 Sodium [Moles/Vol] 143 mmol/L 133-145 [facility] Total proteinOrdered By: Surya blountn Hubert on 03-14-2025 Protein [Mass/Vol] 7.2 g/dL 5.9-8.4 [facility] White blood cell (WBC) count Ordered By: Onelia Gaspar on 03-14-2025 WBC (Bld) [#/Vol] 10.1 10*3/uL 4.4-11.0 [facility] History AND Physic comfort 03-14-2025 Wound Ctr History & Physical [facility] [address] [place] [address] H P Exam - Wound Care 03/14/25 1222 MR#: [id number] Acct: [id number] Name: CLAUDINE JOSEPH Rep #: [id number] : 1990 34 From: Jaimee Marshall NP RETAIL SERVICE REPRESENTATIVE-C PCP: Dr. Colette Goode MD Status:REG RCR [...] doctor down by their house. Mother and cabinet installer take care of her 22/03 she does [...] is cannot probably need a wound VAC. [facility]LY [facility], [facility] Medical History (Updated 03/14/25 @ 12:38 by Jaimee Marshall RETAIL SERVICE REPRESENTATIVE, RETAIL SERVICE REPRESENTATIVE-C) Quadriplegic infantile cerebral palsy Home Medications ???Medication [...] (ClearLax) promethazine 12.5 mg rectal 12.5 mg TN Q6H nausea 03/14/25 Unk nown History suppository [...] addt'l complaints, (more content not included)... Normal [facility] QUE 1 DRUGon 03-13-2025 Antimicrobial Susceptibility Comment Normal [facility] Comment on above: Result Comment: S = Susceptible; I = Intermediate; R = Resistant P = Positive; N = Negative MICS are expressed in micrograms per mL Antibiotic RSLT#1 RSLT#2 RSLT#3 RSLT#4 Cefepime S =8 Performed By: #### 1 8481-2 #### [facility] [address] [place] [address] Software Integrator - Linda Das NEVAEH [id number] Min Inhibitory Conc (1 Drug) Final report Normal [facility] Comment on above: Performed By: #### 1 8481-2 #### [address] [place] [address] Software Integrator - IKOTECH [id number] Result 1 Comment Normal [facility] Comment on above: Result Comment: Pseu domonas aeruginosa Identification performed by account, not confirmed by this laboratory. Performed By: #### 1 8481-2 #### [address] [place] [address] Software Integrator - Applandalison WEBBSverhmarket [id number] CULTURE ROUTINEon 02-21-2025 Bacteria identified Aer cx [...] S <=0.12 Trimethoprim/Sulfamethox azole S <=20 Normal [facility] Comment on above: Performed By: #### 5 7021-8 #### [place] [address] [place] [address] [employer] - [employer] [id number] CULTURE ANAEROBICon 02-21-20 25 Bacteria identified Anaer cx Nom (Wound) NO ANAEROBES ISOLATED Normal [facility] Comment on above: Performed By: #### 1 8481-2 #### [facility] [address] [place] [address] Software Integrator - KontikiCORBY [id number] C REACTIVE PROTEINon 025 CRP [Mass/Vol] 19 mg/L High <=10 [facility] Comment on above: Performed By: #### 1 8481-2 #### [facility] [address] [place] [address] Software Integrator - Linda HERRING [id number] CBC W Auto Differential pane l (Bld)on 01-30-2025 Basophils (Bld) [#/Vol] 0.10 10*3/uL Normal <=0.70 [facility] Comment on above: Performed By: #### G Wilmar, 624-7 #### [facility] [address] [place] [address] Software Integrator - Linda HERRING [id number] Performed for [address] [place] [address] #### SPUTUME #### [place] [address] [place] [address] Software Integrator - Linda HERRING [id number] Basophils/100 WBC (Bld) 1.1 % Normal <=2.0 [facility] Comment on above: Performed By: #### Mariana Urban, 62-7 #### [facility] [address] [place] [address] Software Integrator - Linda HERRING [id number] Performed for [place] [address] [place] [address] #### SPUTUME #### [facility] [address] [place] [address] Software Integrator - Linda HERRING [id number] Eosinophils (Bld) [#/Vol] 0.19 10*3/uL Normal <=0.70 [facility] Comment on above: Performed By: #### G Wilmar, 624-7 #### [facility] [address] [place] [address] Software Integrator - Linda HERRING [id number] Performed for [facility] [address] [place] [address] #### SPUTUME #### [facility] [address] [place] [address] Software Integrator - Linda HERRING [id number] Eosinophils/100 WBC (Bld) 2.2 % Normal <=10.0 [facility] Comment on above: Performed By: #### Mariana Urban, 7 #### [facility] [address] [place] [address] Software Integrator - Linda HERRING [id number] Performed for [facility] [address] [place] [address] #### SPUTUME #### [facility] [address] [place] [address] Software Integrator - Linda HERRING [id number] Erythrocyte distribution width (RBC) [Entitic vol] 48.3 fL High 36.4-46.3 [facility] Comment on above: Performed By: #### Mariana Urban, #### [facility] [address] [place] [address] Software Integrator - Linda HERRING [id number] Performed for [facility] [address] [place] [address] #### SPUTUME #### [facility] [address] [place] [address] Software Integrator - Linda HERRING [id number] Hematocrit (Bld) [Volume fraction] 44.6 % Normal 37.0-47.0 [facility] Comment on above: Performed By: #### Mariana Urban, 7 #### [facility] [address] [place] [address] Software Integrator - Linda HERRING [id number] Performed for [facility] [address] [place] [address] #### SPUTUME #### [facility] [address] [place] [address] Software Integrator - Linda HERRING [id number] Hemoglobin (Bld) [Mass/Vol] 13.4 g/dL Normal 12.0-16.0 [facility] Comment on above: Performed By: #### Mariana Urban, 7 #### [facility] [address] [place] [address] Software Integrator - Linda WEBBIA [id number] Performed for [facility] [address] [place] [address] #### SPUTUME #### [facility] [address] [place] [address] Software Integrator - Linda WEBBIA [id number] Immature granulocytes (Bld) [#/Vol] 0.04 10*3/uL Normal <=0.10 [facility] Comment on above: Performed By: #### G Wilmar, 624-7 #### [facility] [address] [place] [address] Software Integrator - Linda WEBBIA [id number] Performed for [facility] [address] [place] [address] #### SPUTUME #### [place] [address] [place] [address] Software Integrator - Linda WEBBIA [id number] Immature granulocytes/100 WBC (Bld) 0.50 % Normal <=1.50 [facility] Comment on above: Performed By: #### Mariana Urban, 62-7 #### [facility] [address] [place] [address] Software Integrator - Linda WEBBIA [id number] Performed for [facility] [address] [place] [address] #### SPUTUME #### [facility] [address] [place] [address] Software Integrator - Linda WEBBIA [id number] Lymphocytes (Bld) [#/Vol] 1.60 10*3/uL Normal 1.20-3.40 [facility] Comment on above: Performed By: #### G Wilmar, 624-7 #### [facility] [address] [place] [address] Software Integrator - Linda HERRING [id number] Performed for [facility] [address] [place] [address] #### SPUTUME #### [facility] [address] [place] [address] Software Integrator - Linda HERRING [id number] Lymphocytes/100 WBC (Bld) 18.2 % Low 20.0-40.0 [facility] Comment on above: Performed By: #### Mariana Urban, 62-7 #### [facility] [address] [place] [address] Software Integrator - Linda HERRING [id number] Performed for [facility] [address] [place] [address] #### SPUTUME #### [place] [address] [place] [address] Software Integrator - Linda HERRING [id number] MCH (RBC) [Entitic mass] 28.0 pg Normal 27.0-31.0 [facility] Comment on above: Performed By: #### Mariana Urban, 437 #### [address] [place] [address] Software Integrator - Linda HERRING [id number] Performed for [facility] [address] [place] [address] #### SPUTUME #### [place] [address] [place] [address] Software Integrator - Linda HERRING [id number] MCHC (RBC) [Mass/Vol] 30.0 g/dL Low 32.0-36.0 [facility] Comment on above: Performed By: #### Mariana Urban, 127 #### [place] [address] [place] [address] Software Integrator - Linda HERRING [id number] Performed for [place] [address] [place] [address] #### SPUTUME #### [address] [place] [address] Software Integrator - Linda HERRING [id number] MCV (RBC) [Entitic vol] 93.1 fL Normal 80.0-100.0 [facility] Comment on above: Performed By: #### Mariana Urban 624-7 #### [facility] [address] [place] [address] Software Integrator - Linda WEBBIA [id number] Performed for [facility] [address] [place] [address] #### SPUTUME #### [place] [address] [place] [address] Software Integrator - Linda WEBBIA [id number] Monocytes (Bld) [#/Vol] 0.98 10*3/uL High 0.10-0.60 [facility] Comment on above: Performed By: #### Mariana Urban #### [facility] [address] [place] [address] Software Integrator - Linda WEBBIA [id number] Performed for [place] [address] [place] [address] #### SPUTUME #### [place] [address] [place] [address] Software Integrator - Linda WEBBIA [id number] Monocytes/100 WBC (Bld) 11.2 % High <=8.0 [facility] Comment on above: Performed By: #### Mariana Urban #### [place] [address] [place] [address] Software Integrator - Linda WEBBIA [id number] Performed for [facility] [address] [place] [address] #### SPUTUME #### [place] [address] [place] [address] Software Integrator - Linda WEBBIA [id number] Neutrophils (Bld) [#/Vol] 5.86 10*3/uL Normal 1.40-6.50 [facility] Comment on above: Performed By: #### Mariana Urban, #### [place] [address] [place] [address] Software Integrator - Linda WEBBIA [id number] Performed for [facility] [address] [place] [address] #### SPUTUME #### [facility] [address] [place] [address] Software Integrator - Linda WEBBIA [id number] Neutrophils/100 WBC (Bld) 66.8 % Normal 50.0-70.0 [facility] Comment on above: Performed By: #### Mariana Urban, 624-7 #### [facility] [address] [place] [address] Software Integrator - Linda WEBBIA [id number] Performed for [facility] [address] [place] [address] #### SPUTUME #### [facility] [address] [place] [address] Software Integrator - Linda WEBBIA [id number] Nucleated RBC (Bld) [#/Vol] 0.00 10*3/uL Normal <=0.10 [facility] Comment on above: Performed By: #### Mariana Urban 6247 #### [facility] [address] [place] [address] Software Integrator - Linda WEBBIA [id number] Performed for [facility] [address] [place] [address] #### SPUTUME #### [facility] [address] [place] [address] Software Integrator - Linda HERRING [id number] Platelet mean volume (Bld) [Entitic vol] 11.2 fL Normal 9.0-13.0 [facility] Comment on above: Performed By: #### Mariana Urban 6247 #### [facility] [address] [place] [address] Software Integrator - Linda WEBBIA [id number] Performed for [facility] [address] [place] [address] #### SPUTUME #### [facility] [address] [place] [address] Software Integrator - Linda WEBBIA [id number] Platelets (Bld) [#/Vol] 251 10*3/uL Normal 130-400 [facility] Comment on above: Performed By: #### G Wilmar, 624-7 #### [facility] [address] [place] [address] Software Integrator - Linda Das CLIA [id number] Performed for [facility] [address] [place] [address] #### SPUTUME #### [facility] [address] [place] [address] Software Integrator - Linda Das CLIA [id number] RBC (Bld) [#/Vol] 4.79 10*6/uL Normal 4.00-6.30 [facility] Comment on above: Performed By: #### G Wilmar, 624-7 #### [place] [address] [place] [address] Software Integrator - Linda WEBBIA [id number] Performed for [place] [address] [place] [address] #### SPUTUME #### [place] [address] [place] [address] Software Integrator - Linda WEBBIA [id number] WBC (Bld) [#/Vol] 8.77 10*3/uL Normal 4.80-10.80 [facility] Comment on above: Performed By: #### G S, 624-7 #### [place] [address] [place] [address] Software Integrator - Linda WEBBIA [id number] Performed for [facility] [address] [place] [address] #### SPUTUME #### [facility] [address] [place] [address] Software Integrator - Linda WEBBIA [id number] CRP [Mass/Vol]on 01-30-2025 HCRP CRP INTERPRETATION A single CRP determination is of limited diagnostic value while serial determinations help in establishing the trend of an ongoing inflammatory process. CRP values must be interpreted together with other clinical symptoms. Normal values should only be used as a guide. Normal [facility] Comment on above: Performed By: #### 1 8481-2 #### [facility] [address] [place] [address] Software Integrator - Linda WEBBIA [id number] Comprehensive metabolic 2000 panelon 01-30-2025 Albumin [Mass/Vol] 3.3 g/dL Low 3.4-5.0 [facility] Comment on above: Performed By: #### 1 8481-2 #### [facility] [address] [place] [address] Software Integrator - Linda Das CLIA [id number] ALP [Catalytic activity/Vol] 225 U/L High 50-136 [facility] Comment on above: Performed By: #### 1 8481-2 #### [facility] [address] [place] [address] Software Integrator - Linda Das CLIA [id number] ALT [Catalytic activity/Vol] 37 U/L Normal 14-59 [facility] Comment on above: Performed By: #### 1 8481-2 #### [place] [address] [place] [address] Software Integrator - Linda Das CLIA [id number] Anion gap [Moles/Vol] 3.0 mmol/L Normal <=15.0 [facility] Comment on above: Performed By: #### 1 8481-2 #### [facility] [address] [place] [address] Software Integrator - Linda Das CLIA [id number] AST [Catalytic activity/Vol] 30 U/L Normal 15-37 [facility] Comment on above: Performed By: #### 1 8481-2 #### [facility] [address] [place] [address] Software Integrator - Linda Das CLIA [id number] Bilirubin [Mass/Vol] mg/dL Normal 0.2-1.0 [facility] Comment on above: Performed By: #### 1 8481-2 #### [facility] [address] [place] [address] Software Integrator - Linda Das CLIA [id number] Calcium [Mass/Vol] 10.0 mg/dL Normal 8.5-10.1 [facility] Comment on above: Performed By: #### 1 8481-2 #### [facility] [address] [place] [address] Software Integrator - Linda WEBBIA [id number] Chloride [Moles/Vol] 105 mmol/L Normal 98-107 [facility] Comment on above: Performed By: #### 1 8481-2 #### [address] [place] [address] Software Integrator - Linda WEBBIA [id number] CO2 [Moles/Vol] 38 mmol/L High 21-32 [facility] Comment on above: Performed By: #### 1 8481-2 #### [facility] [address] [facility]. [place] [address] Software Integrator - Linda HERRING [id number] Creatinine [Mass/Vol] 0.25 mg/dL Low 0.51-0.95 [facility] Comment on above: Performed By: #### 1 8481-2 #### [facility] [address] [facility]. [place] [address] Software Integrator - Linda HERRING [id number] GFR/1.73 sq M.predicted MDRD (S/P/Bld) [Vol rate/Area] mL/min/{1.73_m2} Normal >=60 [facility] Comment on above: Performed By: #### 1 8481-2 #### [address] [place] [address] Software Integrator - Linda WEBBIA [id number] Glucose [Mass/Vol] 125 mg/dL High 74-106 [facility] Comment on above: Performed By: #### 1 8481-2 #### [address] [place] [address] Software Integrator - Linda HERRING [id number] HGFR GLOMERULAR FILTRATIO N RATE INTERPRETATION~The eGFR [...] months, with or without kidney damage.~ Normal [facility] Comment on above: Performed By: #### 1 8481-2 #### [facility] [address] [place] [address] Software Integrator - Linda WEBBIA [id number] Potassium [Moles/Vol] 5.2 mmol/L High 3.5-5.1 [facility] Comment on above: Performed By: #### 1 8481-2 #### [facility] [address] [place] [address] Software Integrator - Linda WEBBIA [id number] Protein [Mass/Vol] 7.9 g/dL Normal 6.4-8.2 [facility] Comment on above: Performed By: #### 1 8481-2 #### [facility] [address] [place] [address] Software Integrator - Linda Das CLIA [id number] Sodium [Moles/Vol] 146 mmol/L High 136-145 [facility] Comment on above: Performed By: #### 1 8481-2 #### [facility] [address] [place] [address] Software Integrator - Linda WEBBIA [id number] Urea nitrogen [Mass/Vol] 13 mg/dL Normal 7-17 [facility] Comment on above: Performed By: #### 1 8481-2 #### [facility] [address] [place] [address] Software Integrator - Linda WEBBIA [id number] SEDIMENTATION RATEon 025 ESR (Bld) [Velocity] 77 mm/h High 2-15 [facility] Comment on above: Performed By: #### U AR #### [facility] [address] [place] [address] Software Integrator - Linda Dasalison HERRING [id number] #### 630-4 #### [facility] [address] [place] [address] Software Integrator - LindaUSA Health Providence HospitalDasalison HERRING [id number] Performed for [facility] [address] [place] [address] QUE 1 DRUGon 01-22-2025 Antimicrobial Susceptibility Comment Normal [facility] Comment on above: Result Comment: S = Susceptible; I = Intermediate; R = Resistant P = Positive; N = Negative MICS are expressed in micrograms per mL Antibiotic RSLT#1 RSLT#2 RSLT#3 RSLT#4 Cefepime S Performed By: #### G Wimlar, 624-7 #### [facility] [address] [place] [address] Software Integrator - LindaAcuteCare Health SystemCORBY [id number] Performed for [facility] [address] [place] [address] #### SPUTUME #### [facility] [address] [place] [address] Software Integrator - LindaAcuteCare Health SystemCORBY [id number] Min Inhibitory Conc (1 Drug) Final report Normal [facility] Comment on above: Performed By: #### G Wilmar, 624-7 #### [facility] [address] [place] [address] Software Integrator - LindaUSA Health Providence HospitalDas CORBY [id number] Performed for [facility] [address] [place] [address] #### SPUTUME #### [facility] [address] [place] [address] Software Integrator - LindaUSA Health Providence HospitalDasalison HERRING [id number] Result 1 Comment Normal [facility] Comment on above: Result Comment: Pseu domonas aeruginosa Identification performed by account, not confirmed by this laboratory. Performed By: #### G Wilmar, 624-7 #### [facility] [address] [place] [address] Software Integrator - Linda HERRING [id number] Performed for [facility] [address] [place] [address] #### SPUTUME #### [place] [address] [place] [address] Software Integrator - Linda HERRING [id number] CULTURE ROUTINEon 01-16-2025 Bacteria identified Aer cx [...] Vancomycin S 0.5 Tetracycline R >=16 Normal [facility] Comment on above: Performed By: #### U AR #### [place] [address] [place] [address] [employer] - Linda HERRING [id number] #### 630-4 #### [place] [address] [place] [address] [employer] - Linda HERRING [id number] Performed for [address] [place] [address] VITAMIN C ABSORBIC ACIDon Vitamin C 1.0 mg/dL Normal 0.4-2.0 [facility] Comment on above: Result Comment: Jayshree min C deficiency is generally defined as plasma concentrations less than 0.2 mg/dL and levels between 0.2 and 0.4 mg/dL are considered low. Performed By: #### G S, 624-7 #### [place] [address] [place] [address] [employer] - Linda HERRING [id number] Performed for [place] [address] [place] [address] #### SPUTUME #### [place] [address] [place] [address] [employer] - Linda HERRING [id number] 25-hydroxyvitamin D [Mass/Vo l]on 01-11-2025 25-hydroxyvitamin D3 [Mass/Vol] 91.2 ng/mL Normal 30.0-100.0 [facility] Comment on above: Performed By: #### V ANCL #### [address] [place] [address] [employer] - Linda HERRING [id number] HVITD VITAMIN D INTERPRETA TION VITAMIN D STATUS RANGE DEFICIENCY <20 ng/mL INSUFFICIENCY 20-30 ng/mL SUFFICIENCY 30-100 ng/mL TOXICITY >100 ng/mL Normal [facility] Comment on above: Performed By: #### V ANCL #### [address] [place] [address] [employer] - Linda HERRING [id number] Basic metabolic 2000 panelon 01-11-2025 Anion gap [Moles/Vol] 11.0 mmol/L Normal <=15.0 [facility] Comment on above: Performed By: #### 5 7021-8 #### [address] [place] [address] [employer] - Linda HERRING [id number] Calcium [Mass/Vol] 9.8 mg/dL Normal 8.5-10.1 [facility] Comment on above: Performed By: #### 5 7021-8 #### [address] [place] [address] [employer] - Linda HERRING [id number] Chloride [Moles/Vol] 99 mmol/L Normal 98-107 [facility] Comment on above: Performed By: #### 5 7021-8 #### [address] [place] [address] [employer] - Linda WEBBIA [id number] CO2 [Moles/Vol] 32 mmol/L Normal 21-32 [facility] Comment on above: Performed By: #### 5 7021-8 #### [facility] [address] [place] [address] [employer] - Linda HERRING [id number] Creatinine [Mass/Vol] 0.27 mg/dL Low 0.51-0.95 [facility] Comment on above: Performed By: #### 5 7021-8 #### [facility] [address] [place] [address] [employer] - Linda HERRING [id number] GFR/1.73 sq M.predicted MDRD (S/P/Bld) [Vol rate/Area] mL/min/{1.73_m2} Normal >=60 [facility] Comment on above: Performed By: #### 5 7021-8 #### [facility] [address] [place] [address] [employer] - Linda HERRING [id number] Glucose [Mass/Vol] 112 mg/dL High 74-106 [facility] Comment on above: Performed By: #### 5 7021-8 #### [facility] [address] [place] [address] [employer] - Linda HERRING [id number] HGFR GLOMERULAR FILTRATIO N RATE INTERPRETATION~The eGFR [...] months, with or without kidney damage.~ Normal [facility] Comment on above: Performed By: #### 5 7021-8 #### [facility] [address] [place] [address] [employer] - Linda WEBBIA [id number] Potassium [Moles/Vol] 4.5 mmol/L Normal 3.5-5.1 [facility] Comment on above: Performed By: #### 5 7021-8 #### [facility] [address] [place] [address] [employer] - Linda Das CLIA [id number] Sodium [Moles/Vol] 142 mmol/L Normal 136-145 [facility] Comment on above: Performed By: #### 5 7021-8 #### [facility] [address] [place] [address] [employer] - Linda WEBBIA [id number] Urea nitrogen [Mass/Vol] 19 mg/dL High 7-17 [facility] Comment on above: Performed By: #### 5 7021-8 #### [facility] [address] [place] [address] [employer] - Linda Das JONIA [id number] TSH DL <= 0.05 mIU/L Qnon TSH Qn 1.658 uIU/mL Normal 0.358-3.740 [facility] Comment on above: Performed By: #### 5 7021-8 #### [facility] [address] [place] [address] [employer] - Linda WEBBIA [id number] VITAMIN B12on 01-11-2025 Cobalamin (Vitamin B12) [Mass/Vol] 1218 pg/mL Normal 254-1320 [facility] Comment on above: Performed By: #### V ANCL #### [facility] [address] [place] [address] [employer] - Linda WEBBIA [id number] CULTURE BLOODon 01-10-2025 Bacteria identified Cx Nom (Bld) NO GROWTH OBSERVED AFTER 5 DAYS Normal [facility] Comment on above: Performed By: #### 6 00-7 #### [facility] [address] [place] [address] [employer] - Linda HERRING [id number] CULTURE URINEon 01-07-2025 Bacteria identified Cx Nom [...] 8 Tetracycline R >=16 Nitrofurantoin S <=16 Normal [facility] Comment on above: Performed By: #### V ANCL #### [facility] [address] [place] [address] [employer] - Linda HERRING [id number] Basic metabolic 2000 panelon 01-06-2025 Anion gap [Moles/Vol] 6.0 mmol/L Normal <=15.0 [facility] Comment on above: Performed By: #### G S, 624-7 #### [facility] [address] [place] [address] [employer] - Linda HERRING [id number] Performed for [facility] [address] [place] [address] #### SPUTUME #### [facility] [address] [place] [address] [employer]ator - Linda WEBBIA [id number] Calcium [Mass/Vol] 9.2 mg/dL Normal 8.5-10.1 [facility] Comment on above: Performed By: #### Mariana Urban, 62-7 #### [facility] [address] [place] [address] [employer]ator - Linda WEBBIA [id number] Performed for [facility] [address] [place] [address] #### SPUTUME #### [facility] [address] [place] [address] [employer] - Linda HERRING [id number] Chloride [Moles/Vol] 107 mmol/L Normal 98-107 [facility] Comment on above: Performed By: #### Mariana Urban, 7 #### [facility] [address] [place] [address] [employer]ator - Linda HERRING [id number] Performed for [facility] [address] [place] [address] #### SPUTUME #### [facility] [address] [place] [address] [employer]ator - Linda HERRING [id number] CO2 [Moles/Vol] 31 mmol/L Normal 21-32 [facility] Comment on above: Performed By: #### Mariana Urban, 627 #### [facility] [address] [place] [address] [employer]ator - Linda WEBBIA [id number] Performed for [facility] [address] [place] [address] #### SPUTUME #### [facility] [address] [place] [address] [employer]ator - Linda HERRING [id number] Creatinine [Mass/Vol] 0.22 mg/dL Low 0.51-0.95 [facility] Comment on above: Performed By: #### G Wilmar, 62-7 #### [facility] [address] [place] [address] [employer]ator - Linda HERRING [id number] Performed for [facility] [address] [place] [address] #### SPUTUME #### [facility] [address] [place] [address] [employer]ator - Linda HERRING [id number] GFR/1.73 sq M.predicted MDRD (S/P/Bld) [Vol rate/Area] mL/min/{1.73_m2} Normal >=60 [facility] Comment on above: Performed By: #### G S, 624-7 #### [facility] [address] [place] [address] [employer]ator - Linda HERRING [id number] Performed for [facility] [address] [place] [address] #### SPUTUME #### [facility] [address] [place] [address] [employer]ator - Linda HERRING [id number] Glucose [Mass/Vol] 123 mg/dL High 74-106 [facility] Comment on above: Performed By: #### G S, 624-7 #### [facility] [address] [place] [address] [employer]ator - Linda HERRING [id number] Performed for [facility] [address] [place] [address] #### SPUTUME #### [facility] [address] [place] [address] [employer]ator - Linda HERRING [id number] HGFR GLOMERULAR FILTRATIO N RATE INTERPRETATION~The eGFR [...] months, with or without kidney damage.~ Normal [facility] Comment on above: Performed By: #### G Wilmar, 62-7 #### [facility] [address] [place] [address] [employer]ator - Linda HERRING [id number] Performed for [facility] [address] [place] [address] #### SPUTUME #### [facility] [address] [place] [address] [employer]ator - Linda HERRING [id number] Potassium [Moles/Vol] 4.0 mmol/L Normal 3.5-5.1 [facility] Comment on above: Performed By: #### Mariana Urban, 7 #### [facility] [address] [place] [address] Software Integrator - LindaUSA Health Providence HospitalDas CLIA [id number] Performed for [facility] [address] [place] [address] #### SPUTUME #### [facility] [address] [place] [address] [employer]ator - Linda WEBBIA [id number] Sodium [Moles/Vol] 144 mmol/L Normal 136-145 [facility] Comment on above: Performed By: #### Mariana Urban, 7 #### [facility] [address] [place] [address] Software Integrator - [facility] JONIA [id number] Performed for [facility] [address] [place] [address] #### SPUTUME #### [facility] [address] [place] [address] Software Integrator - [facility] HERRING [id number] Urea nitrogen [Mass/Vol] 9 mg/dL Normal 7-17 [facility] Comment on above: Performed By: #### Mariana Urban, 62-7 #### [facility] [address] [place] [address] [employer]ator - Linda HERRING [id number] Performed for [facility] [address] [place] [address] #### SPUTUME #### [facility] [address] [place] [address] [employer]ator - Linda HERRING [id number] CBC panel Auto (Bld)on 01-06 Erythrocyte distribution width (RBC) [Entitic vol] 46.6 fL High 36.4-46.3 [facility] Comment on above: Performed By: #### G S, 624-7 #### [facility] [address] [place] [address] [employer] Integrator - iLnda HERRING [id number] Performed for [facility] [address] [place] [address] #### SPUTUME #### [place] [address] [place] [address] [employer]ator - Linda HERRING [id number] Hematocrit (Bld) [Volume fraction] 36.7 % Low 37.0-47.0 [facility] Comment on above: Performed By: #### G S, 62-7 #### [place] [address] [place] [address] [employer]ator - Linda HERRING [id number] Performed for [facility] [address] [place] [address] #### SPUTUME #### [place] [address] [place] [address] [employer]ator - Linda HERRING [id number] Hemoglobin (Bld) [Mass/Vol] 11.5 g/dL Low 12.0-16.0 [facility] Comment on above: Performed By: #### G S, 624-7 #### [facility] [address] [place] [address] [employer]ator - Linda HERRING [id number] Performed for [facility] [address] [place] [address] #### SPUTUME #### [facility] [address] [place] [address] [employer]ator - Linda WEBBIA [id number] MCH (RBC) [Entitic mass] 28.3 pg Normal 27.0-31.0 [facility] Comment on above: Performed By: #### Mariana Urban, 204-7 #### [facility] [address] [place] [address] [employer]ator - Linda HERRING [id number] Performed for [facility] [address] [place] [address] #### SPUTUME #### [place] [address] [place] [address] [employer] Integrator - Linda HERRING [id number] MCHC (RBC) [Mass/Vol] 31.3 g/dL Low 32.0-36.0 [facility] Comment on above: Performed By: #### Mariana Urban, 304-7 #### [place] [address] [place] [address] [employer] Integrator - Linda WEBBIA [id number] Performed for [facility] [address] [place] [address] #### SPUTUME #### [place] [address] [place] [address] [employer]ator - Linda HERRING [id number] MCV (RBC) [Entitic vol] 90.4 fL Normal 80.0-100.0 [facility] Comment on above: Performed By: #### Mariana Urban, 384-7 #### [place] [address] [place] [address] [employer]ator - Linda WEBBIA [id number] Performed for [place] [address] [place] [address] #### SPUTUME #### [place] [address] [place] [address] [employer]ator - Linda HERRING [id number] Platelet mean volume (Bld) [Entitic vol] 9.7 fL Normal 9.0-13.0 [facility] Comment on above: Performed By: #### G S, 624-7 #### [facility] [address] [place] [address] [employer]ator - Linda WEBBIA [id number] Performed for [facility] [address] [place] [address] #### SPUTUME #### [facility] [address] [place] [address] [employer] Integrator - Linda WEBBIA [id number] Platelets (Bld) [#/Vol] 329 10*3/uL Normal 130-400 [facility] Comment on above: Performed By: #### Mariana Urban, 624-7 #### [facility] [address] [place] [address] [employer] Integrator - Linda WEBBIA [id number] Performed for [facility] [address] [place] [address] #### SPUTUME #### [place] [address] [place] [address] [employer]ator - Linda WEBBIA [id number] RBC (Bld) [#/Vol] 4.06 10*6/uL Normal 4.00-6.30 [facility] Comment on above: Performed By: #### Mariana Urban, 624-7 #### [facility] [address] [place] [address] [employer]ator - Linda WEBBIA [id number] Performed for [facility] [address] [place] [address] #### SPUTUME #### [facility] [address] [place] [address] [employer]ator - Linda WEBBIA [id number] WBC (Bld) [#/Vol] 9.81 10*3/uL Normal 4.80-10.80 [facility] Comment on above: Performed By: #### G S, 624-7 #### [facility] [address] [place] [address] [employer] Integrator - Linda WEBBIA [id number] Performed for [facility] [address] [place] [address] #### SPUTUME #### [facility] [address] [place] [address] [employer] Integrator - Linda HERRING [id number] Tobramycin [Mass/Vol]on 12-28 Tobramycin Random, Serum 0.7 ug/mL Normal 0.5-10.0 [facility] Comment on above: Result Comment: Peak : Therapeutic 6.0 - 10.0 Trough: Therapeutic 0.5 - 1.5 . Detection Limit = 0.4 <0.4 indicates None Detected Performed By: #### G S, 624-7 #### [facility] [address] [place] [address] [employer]ator - Linda HERRING [id number] Performed for [facility] [address] [place] [address] #### SPUTUME #### [place] [address] [place] [address] [employer]ator - Linda HERRING [id number] Basic metabolic 2000 panelon 01-05-2025 Anion gap [Moles/Vol] 9.0 mmol/L Normal <=15.0 [facility] Comment on above: Performed By: #### G Wilmar, -7 #### [facility] [address] [place] [address] [employer]ator - Linda HERRING [id number] Performed for [facility] [address] [place] [address] #### SPUTUME #### [facility] [address] [place] [address] [employer]ator - Linda HERRING [id number] Calcium [Mass/Vol] 9.8 mg/dL Normal 8.5-10.1 [facility] Comment on above: Performed By: #### G S, 624-7 #### [facility] [address] [place] [address] [employer]ator - Linda HERRING [id number] Performed for [facility] [address] [place] [address] #### SPUTUME #### [facility] [address] [place] [address] [employer] Integrator - Linda HERRING [id number] Chloride [Moles/Vol] 101 mmol/L Normal 98-107 [facility] Comment on above: Performed By: #### Mariana Urban, 624-7 #### [facility] [address] [place] [address] [employer]ator - Linda HERRING [id number] Performed for [facility] [address] [place] [address] #### SPUTUME #### [facility] [address] [place] [address] [employer]ator - Linda HERRING [id number] CO2 [Moles/Vol] 34 mmol/L High 21-32 [facility] Comment on above: Performed By: #### Mariana Urban 624-7 #### [facility] [address] [place] [address] [employer]ator - Linda HERRING [id number] Performed for [facility] [address] [place] [address] #### SPUTUME #### [facility] [address] [place] [address] Software Integrator - Linda HERRING [id number] Creatinine [Mass/Vol] 0.28 mg/dL Low 0.51-0.95 [facility] Comment on above: Performed By: #### Mariana Urban 624-7 #### [facility] [address] [place] [address] Software Integrator - Linda HERRING [id number] Performed for [facility] [address] [place] [address] #### SPUTUME #### [facility] [address] [place] [address] [employer]ator - Linda HERRING [id number] GFR/1.73 sq M.predicted MDRD (S/P/Bld) [Vol rate/Area] mL/min/{1.73_m2} Normal >=60 [facility] Comment on above: Performed By: #### G S, 624-7 #### [facility] [address] [place] [address] [employer] Integrator - Linda HERRING [id number] Performed for [facility] [address] [place] [address] #### SPUTUME #### [facility] [address] [place] [address] [employer] Integrator - Linda HERRING [id number] Glucose [Mass/Vol] 99 mg/dL Normal 74-106 [facility] Comment on above: Performed By: #### G S, 624-7 #### [facility] [address] [place] [address] Software Integrator - [facility] NEVAEH [id number] Performed for [facility] [address] [place] [address] #### SPUTUME #### [facility] [address] [place] [address] Software Integrator - LindaAcuteCare Health SystemCORBY [id number] HGFR GLOMERULAR FILTRATIO N RATE INTERPRETATION~The eGFR [...] months, with or without kidney damage.~ Normal [facility] Comment on above: Performed By: #### G S, 624-7 #### [facility] [address] [place] [address] Software Integrator - Linda HERRING [id number] Performed for [facility] [address] [place] [address] #### SPUTUME #### [facility] [address] [place] [address] Software Integrator - Linda WEBBIA [id number] Potassium [Moles/Vol] 3.9 mmol/L Normal 3.5-5.1 [facility] Comment on above: Performed By: #### Mariana Urban, 6247 #### [facility] [address] [place] [address] Software Integrator - Linda WEBBIA [id number] Performed for [facility] [address] [place] [address] #### SPUTUME #### [facility] [address] [place] [address] [employer] Integrator - Linda HERRING [id number] Sodium [Moles/Vol] 144 mmol/L Normal 136-145 [facility] Comment on above: Performed By: #### Mariana Urban 627 #### [facility] [address] [place] [address] Software Integrator - Linda HERRING [id number] Performed for [facility] [address] [place] [address] #### SPUTUME #### [facility] [address] [place] [address] Software Integrator - Linda HERRING [id number] Urea nitrogen [Mass/Vol] 19 mg/dL High 7-17 [facility] Comment on above: Performed By: #### Mariana Urban 627 #### [facility] [address] [place] [address] Software Integrator - Linda HERRING [id number] Performed for [facility] [address] [place] [address] #### SPUTUME #### [facility] [address] [place] [address] [employer] Integrator - Linda HERRING [id number] CBC panel Auto (Bld)on 01-05 Erythrocyte distribution width (RBC) [Entitic vol] 48.8 fL High 36.4-46.3 [facility] Comment on above: Performed By: #### Mariana Urban, 62-7 #### [facility] [address] [place] [address] Software Integrator - Linda HERRING [id number] Performed for [facility] [address] [place] [address] #### SPUTUME #### [facility] [address] [place] [address] [employer] Integrator - Linda HERRING [id number] Hematocrit (Bld) [Volume fraction] 38.9 % Normal 37.0-47.0 [facility] Comment on above: Performed By: #### Mariana Urban, -7 #### [place] [address] [place] [address] [employer]ator - Linda HERRING [id number] Performed for [place] [address] [place] [address] #### SPUTUME #### [place] [address] [place] [address] [employer]ator - Linda HERRING [id number] Hemoglobin (Bld) [Mass/Vol] 12.0 g/dL Normal 12.0-16.0 [facility] Comment on above: Performed By: #### Mariana Urban, 62-7 #### [place] [address] [place] [address] [employer] Integrator - Linda HERRING [id number] Performed for [facility] [address] [place] [address] #### SPUTUME #### [facility] [address] [place] [address] Software Integrator - Linda HERRING [id number] MCH (RBC) [Entitic mass] 28.4 pg Normal 27.0-31.0 [facility] Comment on above: Performed By: #### G S, 62-7 #### [facility] [address] [place] [address] [employer]ator - Linda HERRING [id number] Performed for [place] [address] [place] [address] #### SPUTUME #### [facility] [address] [place] [address] Software Integrator - Linda HERRING [id number] MCHC (RBC) [Mass/Vol] 30.8 g/dL Low 32.0-36.0 [facility] Comment on above: Performed By: #### Mariana Urban, 624-7 #### [facility] [facility] [address] [place] [address] [employer] Linda HERRING [id number] Performed for [facility] [address] [place] [address] #### SPUTUME #### [facility] [address] [place] [address] [employer] - Linda HERRING [id number] MCV (RBC) [Entitic vol] 92.2 fL Normal 80.0-100.0 [facility] Comment on above: Performed By: #### Mariana Urban, 62-7 #### [facility] [address] [place] [address] [employer] - Linda HERRING [id number] Performed for [facility] [address] [place] [address] #### SPUTUME #### [place] [address] [place] [address] [employer] - Linda HERRING [id number] Platelet mean volume (Bld) [Entitic vol] 10.4 fL Normal 9.0-13.0 [facility] Comment on above: Performed By: #### Mariana Urban, 62-7 #### [facility] [address] [place] [address] [employer] - Linda HERRING [id number] Performed for [facility] [address] [place] [address] #### SPUTUME #### [facility] [address] [place] [address] [employer] - Linda HERRING [id number] Platelets (Bld) [#/Vol] 300 10*3/uL Normal 130-400 [facility] Comment on above: Performed By: #### Mariana Urban, 624-7 #### [facility] [address] [place] [address] [employer] - Linda HERRING [id number] Performed for [facility] [address] [place] [address] #### SPUTUME #### [facility] [address] [place] [address] [employer] - Linda HERRING [id number] RBC (Bld) [#/Vol] 4.22 10*6/uL Normal 4.00-6.30 [facility] Comment on above: Performed By: #### Mariana Urban, 62-7 #### [facility] [address] [place] [address] [employer] - Linda HERRING [id number] Performed for [facility] [address] [place] [address] #### SPUTUME #### [facility] [address] [place] [address] [employer] - Linda HERRING [id number] WBC (Bld) [#/Vol] 8.93 10*3/uL Normal 4.80-10.80 [facility] Comment on above: Performed By: #### Mariana Urban, 624-7 #### [facility] [address] [place] [address] [employer] - Linda HERRING [id number] Performed for [facility] [address] [place] [address] #### SPUTUME #### [facility] [address] [place] [address] [employer] - Linda HERRING [id number] MAGNESIUMon 01-05-2025 Magnesium [Mass/Vol] 2.2 mg/dL Normal 1.6-2.6 [facility] Comment on above: Performed By: #### Mariana Urban, 624-7 #### [facility] [address] [place] [address] [employer] - Linda WEBBIA [id number] Performed for [facility] [address] [place] [address] #### SPUTUME #### [place] [address] [place] [address] [employer] - Linda HERRING [id number] CBC W Auto Differential pane l (Bld)on 01-04-2025 Basophils (Bld) [#/Vol] 0.10 10*3/uL Normal <=0.70 [facility] Comment on above: Performed By: #### Mariana Urban, 624-7 #### [address] [place] [address] [employer] - Linda HERRING [id number] Performed for [address] [place] [address] #### SPUTUME #### [place] [address] [place] [address] [employer] - Linda HERRING [id number] Basophils/100 WBC (Bld) 0.7 % Normal <=2.0 [facility] Comment on above: Performed By: #### Mariana Urban, 62-7 #### [address] [facility] [place] [address] [employer] - Linda HERRING [id number] Performed for [place] [address] [place] [address] #### SPUTUME #### [place] [address] [place] [address] [employer] - Linda HERRING [id number] Eosinophils (Bld) [#/Vol] 0.16 10*3/uL Normal <=0.70 [facility] Comment on above: Performed By: #### Mariana Urban, 62-7 #### [place] [address] [place] [address] [employer] - Linda WEBBIA [id number] Performed for [place] [address] [place] [address] #### SPUTUME #### [place] [address] [place] [address] [employer] - Linda WEBBIA [id number] Eosinophils/100 WBC (Bld) 1.2 % Normal <=10.0 [facility] Comment on above: Performed By: #### Mariana Urban, 62-7 #### [facility] [address] [place] [address] [employer] - Linda WEBBIA [id number] Performed for [facility] [address] [place] [address] #### SPUTUME #### [facility] [address] [place] [address] [employer] - Linda HERRING [id number] Erythrocyte distribution width (RBC) [Entitic vol] 48.6 fL High 36.4-46.3 [facility] Comment on above: Performed By: #### Mariana Urban, 7 #### [facility] [address] [place] [address] [employer]ator - Linda WEBBIA [id number] Performed for [facility] [address] [place] [address] #### SPUTUME #### [facility] [address] [place] [address] [employer] - Linda HERRING [id number] Hematocrit (Bld) [Volume fraction] 37.9 % Normal 37.0-47.0 [facility] Comment on above: Performed By: #### Mariana Urban, 7 #### [facility] [address] [place] [address] [employer]ator - Linda WEBBIA [id number] Performed for [facility] [address] [place] [address] #### SPUTUME #### [facility] [address] [place] [address] [employer] - Linda HERRING [id number] Hemoglobin (Bld) [Mass/Vol] 11.5 g/dL Low 12.0-16.0 [facility] Comment on above: Performed By: #### Mariana Urban, 627 #### [facility] [address] [place] [address] [employer]ator - Linda Das CLIA [id number] Performed for [facility] [address] [place] [address] #### SPUTUME #### [facility] [address] [place] [address] [employer]ator - Linda Das CLIA [id number] Immature granulocytes (Bld) [#/Vol] 0.09 10*3/uL Normal <=0.10 [facility] Comment on above: Performed By: #### Mariana Urban, 7 #### [facility] [address] [place] [address] [employer]ator - Linda WEBBIA [id number] Performed for [facility] [address] [place] [address] #### SPUTUME #### [facility] [address] [place] [address] [employer]ator - Linda WEBBIA [id number] Immature granulocytes/100 WBC (Bld) 0.60 % Normal <=1.50 [facility] Comment on above: Performed By: #### Mariana Urban, 7 #### [facility] [address] [place] [address] [employer]ator - Linda WEBBIA [id number] Performed for [facility] [address] [place] [address] #### SPUTUME #### [facility] [address] [place] [address] [employer]ator - Linda WEBBIA [id number] Lymphocytes (Bld) [#/Vol] 2.38 10*3/uL Normal 1.20-3.40 [facility] Comment on above: Performed By: #### G Wilmar, -7 #### [facility] [address] [place] [address] [employer]ator - Linda Das CLIA [id number] Performed for [facility] [address] [place] [address] #### SPUTUME #### [facility] [address] [place] [address] [employer]ator - Linda HERRING [id number] Lymphocytes/100 WBC (Bld) 17.1 % Low 20.0-40.0 [facility] Comment on above: Performed By: #### Mariana Urban 62-7 #### [facility] [address] [place] [address] [employer]ator - Linda HERRING [id number] Performed for [facility] [address] [place] [address] #### SPUTUME #### [place] [address] [place] [address] [employer]ator - Linda HERRING [id number] MCH (RBC) [Entitic mass] 28.0 pg Normal 27.0-31.0 [facility] Comment on above: Performed By: #### Mariana Urban 627 #### [place] [address] [place] [address] [employer]ator - Linda HERRING [id number] Performed for [facility] [address] [place] [address] #### SPUTUME #### [place] [address] [place] [address] [employer] Integrator - Linad HERRING [id number] MCHC (RBC) [Mass/Vol] 30.3 g/dL Low 32.0-36.0 [facility] Comment on above: Performed By: #### Mariana Urban 627 #### [place] [address] [place] [address] [employer]ator - Linda HERRING [id number] Performed for [facility] [address] [address] #### SPUTUME #### [place] [address] [place] [address] [employer]ator - Linda HERRING [id number] MCV (RBC) [Entitic vol] 92.2 fL Normal 80.0-100.0 [facility] Comment on above: Performed By: #### Mariana Urban, 7 #### [facility] [address] [place] [address] [employer]ator - Linda WEBBIA [id number] Performed for [facility] [address] [place] [address] #### SPUTUME #### [facility] [address] [place] [address] [employer]ator - Linda Das CLIA [id number] Monocytes (Bld) [#/Vol] 1.04 10*3/uL High 0.10-0.60 [facility] Comment on above: Performed By: #### Mariana Urban, #### [facility] [address] [place] [address] [employer]ator - Linda WEBBIA [id number] Performed for [facility] [address] [place] [address] #### SPUTUME #### [place] [address] [place] [address] [employer]ator - Linda WEBBIA [id number] Monocytes/100 WBC (Bld) 7.5 % Normal <=8.0 [facility] Comment on above: Performed By: #### Mariana Urban, 7 #### [facility] [address] [place] [address] [employer]ator - Linda WEBBIA [id number] Performed for [facility] [address] [place] [address] #### SPUTUME #### [facility] [address] [place] [address] [employer]ator - Linda WEBBIA [id number] Neutrophils (Bld) [#/Vol] 10.12 10*3/uL High 1.40-6.50 [facility] Comment on above: Performed By: #### Mariana Urban, -7 #### [facility] [address] [place] [address] [employer]ator - Linda Das CLIA [id number] Performed for [facility] [address] [place] [address] #### SPUTUME #### [facility] [address] [place] [address] [employer]ator - Linda HERRING [id number] Neutrophils/100 WBC (Bld) 72.9 % High 50.0-70.0 [facility] Comment on above: Performed By: #### Mariana Urban, 627 #### [facility] [address] [place] [address] [employer]ator - Linda HERRING [id number] Performed for [facility] [address] [place] [address] #### SPUTUME #### [facility] [address] [place] [address] [employer]ator - Linda HERRING [id number] Nucleated RBC (Bld) [#/Vol] 0.00 10*3/uL Normal <=0.10 [facility] Comment on above: Performed By: #### Mariana Urban, 7 #### [facility] [address] [place] [address] [employer]ator - Linda HERRING [id number] Performed for [facility] [address] [place] [address] #### SPUTUME #### [facility] [address] [place] [address] [employer]ator - Linda HERRING [id number] Platelet mean volume (Bld) [Entitic vol] 10.9 fL Normal 9.0-13.0 [facility] Comment on above: Performed By: #### Mariana Urban, 627 #### [facility] [address] [place] [address] [employer]ator - Linda HERRING [id number] Performed for [facility] [address] [place] [address] #### SPUTUME #### [facility] [address] [place] [address] [employer]ator - Linda HERRING [id number] Platelets (Bld) [#/Vol] 295 10*3/uL Normal 130-400 [facility] Comment on above: Performed By: #### Mariana Urban, 624-7 #### [facility] [address] [place] [address] [employer]ator - Linda HERRING [id number] Performed for [facility] [address] [place] [address] #### SPUTUME #### [facility] [address] [place] [address] [employer]ator - Linda HERRING [id number] RBC (Bld) [#/Vol] 4.11 10*6/uL Normal 4.00-6.30 [facility] Comment on above: Performed By: #### Mariana Urban, 624-7 #### [facility] [address] [place] [address] [employer]ator - Linda HERRING [id number] Performed for [facility] [address] [place] [address] #### SPUTUME #### [facility] [address] [place] [address] [employer]ator - Linda HERRING [id number] WBC (Bld) [#/Vol] 13.89 10*3/uL High 4.80-10.80 [facility] Comment on above: Performed By: #### Mariana Urban, 624-7 #### [facility] [address] [place] [address] [employer] - Linda HERRING [id number] Performed for [facility] [address] [place] [address] #### SPUTUME #### [facility] [address] [place] [address] [employer] - Linda HERRING [id number] CHEST AP PORTABLEon 01-05-20 25 CHEST AP PORTABLE EXAM: CHEST AP DEBBY [...] Cholecystectomy. 5. No acute osseous abnormality. Normal [facility] Comprehensive metabolic 2000 panelon 01-04-2025 Albumin [Mass/Vol] 3.4 g/dL Normal 3.4-5.0 [facility] Comment on above: Performed By: #### U AR #### [facility] [address] [place] [address] [employer] - Linda HERRING [id number] #### 630-4 #### [facility] [address] [place] [address] [employer] Integrator - Linda Dasalison HERRING [id number] Performed for [facility] [address] [place] [address] ALP [Catalytic activity/Vol] 173 U/L High 50-136 [facility] Comment on above: Performed By: #### U AR #### [facility] [address] [place] [address] [employer]ator - Linda Thiago HERRING [id number] #### 630-4 #### [facility] [address] [place] [address] [employer] [facility] NEVAEH [id number] Performed for [facility] [address] [place] [address] ALT [Catalytic activity/Vol] 24 U/L Normal 14-59 [facility] Comment on above: Performed By: #### U AR #### [facility] [address] [place] [address] [employer]ator - Linda Thiago HERRING [id number] #### 630-4 #### [facility] [address] [place] [address] [employer] [facility] NEVAEH [id number] Performed for [facility] [address] [place] [address] Anion gap [Moles/Vol] 6.0 mmol/L Normal <=15.0 [facility] Comment on above: Performed By: #### U AR #### [facility] [address] [place] [address] [employer]ator - Linda HERRING [id number] #### 630-4 #### [facility] [address] [place] [address] [employer]ator - Linda HERRING [id number] Performed for [facility] [address] [place] [address] AST [Catalytic activity/Vol] 19 U/L Normal 15-37 [facility] Comment on above: Performed By: #### U AR #### [facility] [address] [place] [address] [employer]ator - Linda HERRING [id number] #### 630-4 #### [facility] [address] [place] [address] [employer]ator - Linda HERRING [id number] Performed for [facility] [address] [place] [address] Bilirubin [Mass/Vol] mg/dL Normal 0.2-1.0 [facility] Comment on above: Performed By: #### U AR #### [facility] [address] [place] [address] [employer] - Linda HERRING [id number] #### 630-4 #### [facility] [address] [place] [address] [employer]ator - Linda HERRING [id number] Performed for [facility] [address] [place] [address] Calcium [Mass/Vol] 9.9 mg/dL Normal 8.5-10.1 [facility] Comment on above: Performed By: #### U AR #### [facility] [address] [place] [address] [employer]ator - Linda HERRING [id number] #### 630-4 #### [facility] [address] [place] [address] [employer]ator - Linda HERRING [id number] Performed for [facility] [address] [place], [place] [address] Chloride [Moles/Vol] 103 mmol/L Normal 98-107 [facility] Comment on above: Performed By: #### U AR #### [facility] [address] [place] [address] [employer]ator - Linda HERRING [id number] #### 630-4 #### [facility] [address] [place] [address] [employer]ator - Linda HERRING [id number] Performed for [facility] [address] [place] [address] CO2 [Moles/Vol] 36 mmol/L High 21-32 [facility] Comment on above: Performed By: #### U AR #### [facility] [address] [place] [address] [employer] - Linda HERRING [id number] #### 630-4 #### [facility] [address] [place] [address] [employer]ator - Linda HERRING [id number] Performed for [facility] [address] [place] [address] Creatinine [Mass/Vol] 0.28 mg/dL Low 0.51-0.95 [facility] Comment on above: Performed By: #### U AR #### [facility] [address] [place] [address] [employer]ator - Linda HERRING [id number] #### 630-4 #### [facility] [address] [place] [address] [employer]ator - Linda HERRING [id number] Performed for [facility] [address] [place] [address] GFR/1.73 sq M.predicted MDRD (S/P/Bld) [Vol rate/Area] mL/min/{1.73_m2} Normal >=60 [facility] Comment on above: Performed By: #### U AR #### [facility] [address] [place] [address] [employer]ator - Linda HERRING [id number] #### 630-4 #### [facility] [address] [place] [address] [employer]ator - Linda HERRING [id number] Performed for [facility] [address] [place] [address] Glucose [Mass/Vol] 95 mg/dL Normal 74-106 [facility] Comment on above: Performed By: #### U AR #### [facility] [address] [place] [address] [employer]ator - Linda HERRING [id number] #### 630-4 #### [facility] [address] [place] [address] [employer]ator - Linda Das NEVAEH [id number] Performed for [facility] [address] [place] [address] HGFR GLOMERULAR FILTRATIO N RATE INTERPRETATION~The eGFR [...] months, with or without kidney damage.~ Normal [facility] Comment on above: Performed By: #### U AR #### [facility] [address] [place] [address] [employer] - Linda HERRING [id number] #### 630-4 #### [facility] [address] [place] [address] [employer]ator - Linda HERRING [id number] Performed for [facility] [address] [place] [address] Potassium [Moles/Vol] 3.6 mmol/L Normal 3.5-5.1 [facility] Comment on above: Performed By: #### U AR #### [facility] [address] [place] [address] [employer]ator - Linda HERRING [id number] #### 630-4 #### [facility] [address] [place] [address] [employer]ator - Linda HERRING [id number] Performed for [facility] [address] [place] [address] Protein [Mass/Vol] 7.3 g/dL Normal 6.4-8.2 [facility] Comment on above: Performed By: #### U AR #### [facility] [address] [place] [address] [employer]ator - Linda HERRING [id number] #### 630-4 #### [facility] [address] [place] [address] [employer]ator - Linda HERRING [id number] Performed for [facility] [address] [place] [address] Sodium [Moles/Vol] 145 mmol/L Normal 136-145 [facility] Comment on above: Performed By: #### U AR #### [facility] [address] [place] [address] [employer]ator - Linda HERRING [id number] #### 630-4 #### [facility] [address] [place] [address] [employer]ator - Linda HERRING [id number] Performed for [facility] [address] [place] [address] Urea nitrogen [Mass/Vol] 17 mg/dL Normal 7-17 [facility] Comment on above: Performed By: #### U AR #### [facility] [address] [place] [address] [employer]ator - Linda HERRING [id number] #### 630-4 #### [facility] [address] [place] [address] [employer]ator - Linda HERRING [id number] Performed for [facility] [address] [place] [address] LACTATEon 01-04-2025 Lactate [Moles/Vol] 1.6 mmol/L Normal 0.4-2.0 [facility] Comment on above: Performed By: #### G S, 624-7 #### [facility] [address] [place] [address] [employer]ator - Linda HERRING [id number] Performed for [facility] [address] [place] [address] #### SPUTUME #### [facility] [address] [place] [address] [employer]ator - Linda HERRING [id number] Lactate [Moles/Vol] 1.3 mmol/L Normal 0.4-2.0 [facility] Comment on above: Performed By: #### 5 7021-8 #### [facility] [address] [place] [address] [employer] - Linda HERRING [id number] LIPASEon 01-04-2025 LIPASES 27 U/L Normal 13-75 [facility] Comment on above: Performed By: #### U AR #### [facility] [address] [place] [address] [employer]ator - Linda WEBBIA [id number] #### 630-4 #### [facility] [address] [place] [address] [employer] - [facility] JONIA [id number] Performed for [facility] [address] [place] [address] MAGNESIUMon 01-04-2025 Magnesium [Mass/Vol] 2.2 mg/dL Normal 1.6-2.6 [facility] Comment on above: Performed By: #### U AR #### [facility] [address] [place] [address] [employer] - Linda WEBBIA [id number] #### 630-4 #### [facility] [address] [place] [address] [employer] - Linda HERRING [id number] Performed for [facility] [address] [place] [address] TROPONIN HIGH SENSITIVITYon 01-04-2025 TNIH <2.50 Normal <=59.00 [facility] Comment on above: Result Comment: <59 pg/mL is considered a negative result. Performed By: #### Mariana Urban 624-7 #### [facility] [address] [place] [address] [employer]ator - Linda HERRING [id number] Performed for [facility] [address] [address] #### SPUTUME #### [place] [address] [place] [address] [employer]ator - Linda HERRING [id number] TNIH <2.50 Normal <=59.00 [facility] Comment on above: Result Comment: <59 pg/mL is considered a negative result. Performed By: #### Mariana Urban 624-7 #### [facility] [address] [place] [address] [employer] - Linda HERRING [id number] Performed for [facility] [address] [place] [address] #### SPUTUME #### [facility] [address] [place] [address] [employer]ator - Linda HERRING [id number] URINALYSIS with reflex to CU LTUREon 01-04-2025 Bacteria LM Ql (Urine sed) LARGE Abnormal TRACE [facility] Comment on above: Performed By: #### V ANCL #### [facility] [address] [place] [address] [employer]ator - Linda HERRING [id number] Bilirubin (U) [Mass/Vol] Negative Normal NEGATIVE [facility] Comment on above: Performed By: #### V ANCL #### [facility] [address] [place] [address] [employer]ator - Linda HERRING [id number] Clarity (U) TURBID Abnormal CLEAR [facility] Comment on above: Performed By: #### V ANCL #### [facility] [address] [place] [address] [employer] - [facility] [id number] Color (U) YELLOW Normal YELLOW [facility] Comment on above: Performed By: #### V ANCL #### [place] [address] [employer] - [facility] [id number] Glucose Test strip (U) [Mass/Vol] Negative Normal NEGATIVE [facility] Comment on above: Performed By: #### V ANCL #### [place] [address] [employer] - [facility] [id number] HMICRO MICROSCOPIC Normal [facility] Comment on above: Performed By: #### V ANCL #### [place] [address] [employer] - [facility] [id number] Hyaline casts (Urine sed) [#/Area] 10-20 Abnormal 0-8 [facility] Comment on above: Performed By: #### V ANCL #### [place] [address] Software Integrator - [facility] CLIA [id number] Ketones (U) [Mass/Vol] Negative Normal NEGATIVE [facility] Comment on above: Performed By: #### V ANCL #### [place] [address] [employer] - [facility] [id number] Leukocyte esterase Qn (U) 3+ Abnormal TRACE [facility] Comment on above: Performed By: #### V ANCL #### [place] [address] [employer] - [facility] [id number] Mucus Ql (Urine sed) SMALL Abnormal TRACE [facility] Comment on above: Performed By: #### V ANCL #### [place] [address] [facility]. [place] [address] Software Integrator - Linda WEBBIA [id number] Nitrite Ql (U) Positive Abnormal NEGATIVE [facility] Comment on above: Performed By: #### V ANCL #### [facility] [address] [place] [address]. [place] [address] [employer]ator - Linda WEBBIA [id number] pH (U) 8.5 [pH] High 5.5-7.5 [facility] Comment on above: Performed By: #### V ANCL #### [place] [address] [employer]ator - Linda WEBBIA [id number] Protein (U) [Mass/Vol] 1+ Abnormal NEGATIVE [facility] Comment on above: Performed By: #### V ANCL #### [place] [address] [employer] Integrator - Linda WEBBIA [id number] RBC (U) [#/Vol] Negative Normal NEGATIVE [facility] Comment on above: Performed By: #### V ANCL #### [place] [address] [employer]ator - Linda WEBBIA [id number] RBC LM.HPF (Urine sed) [#/Area] 4-10 Abnormal 0-4 [facility] Comment on above: Performed By: #### V ANCL #### [place] [address] [employer]ator - Linda WEBBIA [id number] Specific gravity (U) [Rel density] 1.025 Normal 1.010-1.035 [facility] Comment on above: Performed By: #### V ANCL #### [place] [address] [employer]ator - Linda WEBBIA [id number] SQUAMOUS EPITHELIALS 0-5 Normal 0-5 [facility] Comment on above: Performed By: #### V ANCL #### [place] [address] [employer]ator - Linda HERRING [id number] Urobilinogen Qn (U) 0.2 {Sari'U}/dL Normal <=1.0 [facility] Comment on above: Performed By: #### V ANCL #### [place] [address] [place] [address] [employer]ator - Linda HERRING [id number] WBC LM.HPF (Urine sed) [#/Area] 100-900 Abnormal 0-5 [facility] Comment on above: Performed By: #### V ANCL #### [address] [place] [address] Software Integrator - Linda Dasalison HERRING [id number] VITAMIN A RETINOLon 12-29-19 25 Vitamin A 48.6 ug/dL Normal 18.9-57.3 [facility] Comment on above: Result Comment: Refe rence [...] Performed By: #### G S, 624-7 #### [address] [place] [address] Software Integrator - LindaAcuteCare Health SystemCORBY [id number] Performed for [address] [address] #### SPUTUME #### [place] [address] [address] [place] [address] Software Integrator - [facility] [id number] VITAMIN B1 THIAMINEon 2024 Vit. B1, Whole Blood 291.3 nmol/L High 66.5-200.0 [facility] Comment on above: Performed By: #### U AR #### [place] [address] [place] [address] Software Integrator - LindaUSA Health Providence HospitalDasalison HERRING [id number] #### 630-4 #### [address] [place] [address] Software Integrator - Linda WEBBIA [id number] Performed for [facility] [address] [place] [address] VITAMIN B6on 12-27-2024 Vitamin B6 14.6 ug/L Normal 3.4-65.2 [facility] Comment on above: Result Comment: Defi ciency: <3.4 Marginal: 3.4 - 5.1 Adequate: >5.1 Performed By: #### 5 7021-8 #### [facility] [address] [place] [address] Software Integrator - Linda HERRING [id number] ZINCon 12-27-2024 Zinc, Plasma or Serum 59 ug/dL Normal 44-115 [facility] Comment on above: Result Comment: Dete ction Limit = 5 Performed By: #### U AR #### [place] [address] [place] [address] Software Integrator - Linda HERRING [id number] #### 630-4 #### [facility] [address] [place] [address] Software Integrator - Linda WEBBIA [id number] Performed for [facility] [address] [place], [place] [address] CELIAC DISEASE Abson 025 Deamidated Gliadin Abs, IgA 36 units High 0-19 [facility] Comment on above: Result Comment: Nega tive 0 - 19 Weak Positive 20 - 30 Moderate to Strong Positive >30 Performed By: #### U AR #### [facility] [address] [place] [address] Software Integrator - Linda WEBBIA [id number] #### 630-4 #### [place] [address] [place] [address] Software Integrator - Linda Das CLIA [id number] Performed for [facility] [address] [place] [address] Deamidated Gliadin Abs, IgG 9 units Normal 0-19 [facility] Comment on above: Result Comment: Nega tive 0 - 19 Weak Positive 20 - 30 Moderate to Strong Positive >30 Performed By: #### U AR #### [facility] [address] [place] [address] Software Integrator - Linda HERRING [id number] #### 630-4 #### [facility] [address] [place] [address] Software Integrator - Linda HERRING [id number] Performed for [facility] [address] [place] [address] Endomysial Antibody IgA Negative Normal Negative [facility] Comment on above: Performed By: #### U AR #### [facility] [address] [place] [address] Software Integrator - Linda HERRING [id number] #### 630-4 #### [place] [address] [place] [address] Software Integrator - Linda HERRING [id number] Performed for [facility] [address] [place] [address] Immunoglobulin A, Qn, Serum 381 mg/dL High 87-352 [facility] Comment on above: Performed By: #### U AR #### [place] [address] [place] [address] Software Integrator - Linda HERRING [id number] #### 630-4 #### [place] [address] [place] [address] Software Integrator - Linda HERRING [id number] Performed for [facility] [address] [place] [address] t-Transglutaminase (tTG) IgA 3 U/mL Normal 0-3 [facility] Comment on above: Result Comment: Nega tive 0 - 3 Weak Positive 4 - 10 Positive >10 . Tissue Transglutaminase (tTG) has been identified as the endomysial antigen. Studies have demonstr- ated that endomysial IgA antibodies have over 99% specificity for gluten sensitive enteropathy. Performed By: #### U AR #### [facility] [address] [place] [address] Software Integrator - Linda HERRING [id number] #### 630-4 #### [place] [address] [place] [address] Software Integrator - LindaMUSC [facility] JONCORBY [id number] Performed for [place] [address] [place] [address] t-Transglutaminase (tTG) IgG 4 U/mL Normal 0-5 [facility] Comment on above: Result Comment: Nega tive 0 - 5 Weak Positive 6 - 9 Positive >9 Performed By: #### U AR #### [place] [address] [place] [address] Software Integrator - Linda HERRING [id number] #### 630-4 #### [place] [address] [place] [address] Software Integrator - [facility] [id number] Performed for [place] [address] [address] [place] [address] VITAMIN C ABSORBIC ACIDon Vitamin C 1.0 mg/dL Normal 0.4-2.0 [facility] Comment on above: Result Comment: Jayshree min C deficiency is generally defined as plasma concentrations less than 0.2 mg/dL and levels between 0.2 and 0.4 mg/dL are considered low. Performed By: #### G S, 624-7 #### [place] [address] [place] [address] Software Integrator - [facility] [id number] Performed for [place] [address] [place] [address] #### SPUTUME #### [place] [address] [place] [address] Software Integrator - [facility] [id number] FOLATE -SEND OUTon 5 Folate [Mass/Vol] ng/mL Normal >3.0 [facility] Comment on above: Result Comment: A se rum folate concentration of less than 3.1 ng/mL is considered to represent clinical deficiency. Performed By: #### U AR #### [place] [address] [place] [address] Software Integrator - Linda HERRING [id number] #### 630-4 #### [place] [address] [place] [address] Software Integrator - Linda HERRING [id number] Performed for [place] [address] [place] [address] 25-hydroxyvitamin D [Mass/Vo l]on 12-21-2024 25-hydroxyvitamin D3 [Mass/Vol] 93.3 ng/mL Normal 30.0-100.0 [facility] Comment on above: Performed By: #### Mariana Urban, 624-7 #### [place] [address] [place] [address] Software Integrator - Linda HERRING [id number] Performed for [place] [address] [address] [place] [address] #### SPUTUME #### [place] [address] [place] [address] Software Integrator - Linda HERRING [id number] HVITD VITAMIN D INTERPRETA TION VITAMIN D STATUS RANGE DEFICIENCY <20 ng/mL INSUFFICIENCY 20-30 ng/mL SUFFICIENCY 30-100 ng/mL TOXICITY >100 ng/mL Normal [facility] Comment on above: Performed By: #### G Wilmar, 624-7 #### [place] [address] [place] [address] Software Integrator - Linda HERRING [id number] Performed for [place] [address] [place] [address] #### SPUTUME #### [place] [address] [place] [address] Software Integrator - Linda HERRING [id number] Basic metabolic 2000 panelon 12-21-2024 Anion gap [Moles/Vol] 5.0 mmol/L Normal <=15.0 [facility] Comment on above: Performed By: #### Mariana Urbna, 627 #### [facility] [address] [place] [address] Software Integrator - Linda HERRING [id number] Performed for [facility] [address] [place] [address] #### SPUTUME #### [facility] [address] [place] [address] Software Integrator - Linda HERRING [id number] Calcium [Mass/Vol] 9.4 mg/dL Normal 8.5-10.1 [facility] Comment on above: Performed By: #### Mariana Urban, #### [facility] [address] [place] [address] Software Integrator - Linda WEBBIA [id number] Performed for [facility] [address] [place] [address] #### SPUTUME #### [facility] [address] [place] [address] Software Integrator - Linda HERRING [id number] Chloride [Moles/Vol] 101 mmol/L Normal 98-107 [facility] Comment on above: Performed By: #### Mariana Urban, 6212-04 #### [facility] [address] [place] [address] Software Integrator - Linda WEBBIA [id number] Performed for [facility] [address] [place] [address] #### SPUTUME #### [facility] [address] [place] [address] Software Integrator - Linda HERRING [id number] CO2 [Moles/Vol] 34 mmol/L High 21-32 [facility] Comment on above: Performed By: #### Mariana Urban, 627 #### [facility] [address] [place] [address] Software Integrator - Linda WEBBIA [id number] Performed for [facility] [address] [place] [address] #### SPUTUME #### [facility] [address] [place] [address] Software Integrator - Linda HERRING [id number] Creatinine [Mass/Vol] 0.24 mg/dL Low 0.51-0.95 [facility] Comment on above: Performed By: #### G Wilmar, 624-7 #### [facility] [address] [place] [address] Software Integrator - Linda HERRING [id number] Performed for [facility] [address] [place] [address] #### SPUTUME #### [facility] [address] [place] [address] Software Integrator - Linda HERRING [id number] GFR/1.73 sq M.predicted MDRD (S/P/Bld) [Vol rate/Area] mL/min/{1.73_m2} Normal >=60 [facility] Comment on above: Performed By: #### G Wilmar, 624-7 #### [facility] [address] [place] [address] Software Integrator - Linda HERRING [id number] Performed for [facility] [address] [place] [address] #### SPUTUME #### [facility] [address] [place] [address] Software Integrator - Linda HERRING [id number] Glucose [Mass/Vol] 90 mg/dL Normal 74-106 [facility] Comment on above: Performed By: #### G Wilmar, 624-7 #### [facility] [address] [place] [address] Software Integrator - Linda HERRING [id number] Performed for [facility] [address] [place] [address] #### SPUTUME #### [facility] [address] [place] [address] Software Integrator - Linda HERRING [id number] HGFR GLOMERULAR FILTRATIO N RATE INTERPRETATION~The eGFR [...] months, with or without kidney damage.~ Normal [facility] Comment on above: Performed By: #### G Wilmar, 624-7 #### [facility] [address] [place] [address] Software Integrator - LindaUSA Health Providence HospitalDasalison HERRING [id number] Performed for [facility] [address] [place] [address] #### SPUTUME #### [facility] [address] [place] [address] Software Integrator - LindaUSA Health Providence HospitalDasalison HERRING [id number] Potassium [Moles/Vol] 3.9 mmol/L Normal 3.5-5.1 [facility] Comment on above: Performed By: #### G Wilmar, 624-7 #### [facility] [address] [place] [address] Software Integrator - LindaUSA Health Providence HospitalDas CORBY [id number] Performed for [facility] [address] [place] [address] #### SPUTUME #### [facility] [address] [place] [address] Software Integrator - LindaMUS[facility] NEVAEH [id number] Sodium [Moles/Vol] 140 mmol/L Normal 136-145 [facility] Comment on above: Performed By: #### G Wilmar, 624-7 #### [facility] [address] [place] [address] Software Integrator - Linda HERRING [id number] Performed for [facility] [address] [place] [address] #### SPUTUME #### [facility] [address] [place] [address] Software Integrator - Linda HERRING [id number] Urea nitrogen [Mass/Vol] 18 mg/dL High 7-17 [facility] Comment on above: Performed By: #### G S, 624-7 #### [facility] [address] [place] [address] Software Integrator - Linda HERRING [id number] Performed for [facility] [address] [place] [address] #### SPUTUME #### [facility] [address] [place] [address] Software Integrator - Linda HERRING [id number] HbA1c Calc (Bld) [Mass fract ion]on 12-21-2024 Average glucose Estimated from glycated hemoglobin (Bld) [Mass/Vol] 103 mg/dL Normal 68-125 [facility] Comment on above: Performed By: #### V ANCL #### [facility] [address] [place] [address] Software Integrator - Linda HERRING [id number] HA1C A1C INTERPRETATION % A1c (NGSP) Interpretation <5.7 Non-Diabetic Range 5.7 - 6.4 Prediabetic >6.5 Action Suggested The eAG (estimated average glucose) is an estimation of one?s average blood glucose level, calculated based on A1C test results, reported using the same units (mg/dL) seen on blood glucose meters. Normal [facility] Comment on above: Performed By: #### V ANCL #### [facility] [address] [place] [address] Software Integrator - Linda HERRING [id number] HbA1c (Bld) [Mass fraction] 5.2 %A1C Normal 4.2-6.3 [facility] Comment on above: Performed By: #### V ANCL #### [facility] [address] [place] [address] Software Integrator - Linda HERRING [id number] TSH DL <= 0.05 mIU/L Qnon TSH Qn 4.875 uIU/mL High 0.358-3.740 [facility] Comment on above: Performed By: #### Mariana Urban, 624-7 #### [facility] [address] [place] [address] Software Integrator - Linda HERRING [id number] Performed for [facility] [address] [place] [address] #### SPUTUME #### [facility] [address] [place] [address] Software Integrator - Linda HERRING [id number] VITAMIN B12on 12-21-2024 Cobalamin (Vitamin B12) [Mass/Vol] 930 pg/mL Normal 254-1320 [facility] Comment on above: Performed By: #### Mariana Urban 624-7 #### [facility] [address] [place] [address] Software Integrator - Linda HERRING [id number] Performed for [facility] [address] [place] [address] #### SPUTUME #### [facility] [address] [place] [address] Software Integrator - Linda HERRING [id number] C REACTIVE PROTEINon 025 CRP [Mass/Vol] 15 mg/L High <=10 [facility] Comment on above: Performed By: #### Mariana Ubran, 624-7 #### [facility] [address] [place] [address] Software Integrator - Linda HERRING [id number] Performed for [facility] [address] [place] [address] #### SPUTUME #### [facility] [address] [place] [address] Software Integrator - Linda HERRING [id number] CRP [Mass/Vol]on 09-29-2024 HCRP CRP INTERPRETATION A single CRP determination is of limited diagnostic value while serial determinations help in establishing the trend of an ongoing inflammatory process. CRP values must be interpreted together with other clinical symptoms. Normal values should only be used as a guide. Normal [facility] Comment on above: Performed By: #### G S, 624-7 #### [facility] [address] [place] [address] Software Integrator - Linda Dasalison HERRING [id number] Performed for [facility] [address] [place] [address] #### SPUTUME #### [place] [address] [place] [address] Software Integrator - App[employer]al[employer] HERRING [id number] SEDIMENTATION RATEon 025 ESR (Bld) [Velocity] 63 mm/h High 10-14 [facility] Comment on above: Performed By: #### U AR #### [place] [address] [place] [address] Software Integrator - Applandalison HERRING [id number] #### 630-4 #### [facility] [address] [place] [address] Software Integrator - [employer] NEVAEH [id number] Performed for [place] [address] [address] [place] [address] QUE 1 DRUGon 09-27-2024 Antimicrobial Susceptibility Comment Normal [facility] Comment on above: Result Comment: S = Susceptible; I = Intermediate; R = Resistant P = Positive; N = Negative MICS are expressed in micrograms per mL Antibiotic RSLT#1 RSLT#2 RSLT#3 RSLT#4 Cefepime S Performed By: #### G S, 624-7 #### [facility] [address] [place] [address] Software Integrator - K[employer]BY [id number] Performed for [facility] [address] [place] [address] #### SPUTUME #### [facility] [address] [place] [address] [employer] - [employer] NEVAEH [id number] Min Inhibitory Conc (1 Drug) Final report Normal [facility] Comment on above: Performed By: #### G S, 624-7 #### [facility] [address] [place] [address] Software Integrator - [facility] [id number] Performed for [facility] [address] [place] [address] #### SPUTUME #### [place] [address] [place] [address] Software Integrator - [facility] [id number] Result 1 Comment Normal [facility] Comment on above: Result Comment: Pseu domonas aeruginosa Identification performed by account, not confirmed by this laboratory. Performed By: #### G S, 624-7 #### [facility] [address] [place] [address] Software Integrator - [facility] [id number] Performed for [place] [address] [place] [address] #### SPUTUME #### [facility] [address] [place] [address] [employer] - [facility] [id number] CULTURE ROUTINEon 09-20-2024 Bacteria identified Aer cx [...] Ciprofloxacin R >=4 Levofloxacin R 4 Normal [facility] Comment on above: Performed By: #### G S, 624-7 #### [facility] [address] [place] [address] Software Integrator - [facility] [id number] Performed for [facility] [address] [place] [address] #### SPUTUME #### [place] [address] [place] [address] [employer] [facility] [id number] CULTURE ROUTINEon 08-18-2024 Bacteria identified Aer cx [...] Ceftriaxone S <=0.25 Levofloxacin S <=0.12 Normal [facility] Comment on above: Performed By: #### G S, 624-7 #### [facility] [address] [place] [address] [employer] - [facility] NEVAEH [id number] Performed for [facility] [address] [place] [address] #### SPUTUME #### [facility] [address] [place] [address] [employer] - Linda HERRING [id number] CULTURE BLOODon 07-20-2024 Bacteria identified Cx Nom (Bld) NO GROWTH OBSERVED AFTER 5 DAYS Normal [facility] Comment on above: Performed By: #### G S, 624-7 #### [facility] [address] [place] [address] [employer] - Linda HERRING [id number] Performed for [facility] [address] [place] [address] #### SPUTUME #### [facility] [address] [place] [address] [employer] - Linda HERRING [id number] QUE 1 DRUGon 07-20-2024 Antimicrobial Susceptibility Comment Normal [facility] Comment on above: Result Comment: S = Susceptible; I = Intermediate; R = Resistant P = Positive; N = Negative MICS are expressed in micrograms per mL Antibiotic RSLT#1 RSLT#2 RSLT#3 RSLT#4 Aztreonam R Cefepime I Performed By: #### U AR #### [facility] [address] [place] [address] [employer] - Linda HERRING [id number] #### 630-4 #### [facility] [address] [place] [address] [employer] - Linda HERRING [id number] Performed for [facility] [address] [place] [address] Min Inhibitory Conc (1 Drug) Final report Normal [facility] Comment on above: Performed By: #### U AR #### [facility] [address] [place] [address] [employer] - Linda HERRING [id number] #### 630-4 #### [facility] [address] [place] [address] [employer] - Linda HERRING [id number] Performed for [facility] [address] [place] [address] Result 1 Comment Normal [facility] Comment on above: Result Comment: Pseu domonas aeruginosa Identification performed by account, not confirmed by this laboratory. Performed By: #### U AR #### [place] [address] [employer] - [facility] JONIA [id number] #### 630-4 #### [address] [place] [address] [employer]ator - [facility] JONIA [id number] Performed for [place] [address] CBC W Auto Differential pane l (Bld)on 07-19-2024 Basophils (Bld) [#/Vol] 0.13 10*3/uL Normal <=0.70 [facility] Comment on above: Performed By: #### V ANCL #### [place] [address] [employer] Integrator - [facility] [id number] Basophils/100 WBC (Bld) 1.3 % Normal <=2.0 [facility] Comment on above: Performed By: #### V ANCL #### [place] [address] [employer] - [facility] JONIA [id number] Eosinophils (Bld) [#/Vol] 0.16 10*3/uL Normal <=0.70 [facility] Comment on above: Performed By: #### V ANCL #### [place] [address] [employer] - [facility] CLIA [id number] Eosinophils/100 WBC (Bld) 1.5 % Normal <=10.0 [facility] Comment on above: Performed By: #### V ANCL #### [address] [place] [address] [employer] Integrator - [facility] JONIA [id number] Erythrocyte distribution width (RBC) [Entitic vol] 48.7 fL High 36.4-46.3 [facility] Comment on above: Performed By: #### V ANCL #### [facility] [address] [place] [address] [employer] Integrator - Linda WEBBIA [id number] Hematocrit (Bld) [Volume fraction] 34.9 % Low 37.0-47.0 [facility] Comment on above: Performed By: #### V ANCL #### [facility] [address] [place] [address] [employer]ator - Linda Das CLIA [id number] Hemoglobin (Bld) [Mass/Vol] 11.2 g/dL Low 12.0-16.0 [facility] Comment on above: Performed By: #### V ANCL #### [place] [address] [place] [address] [employer]ator - Linda WEBBIA [id number] Immature granulocytes (Bld) [#/Vol] 0.05 10*3/uL Normal <=0.10 [facility] Comment on above: Performed By: #### V ANCL #### [place] [address] [place] [address] [employer]ator - Linda Das CLIA [id number] Immature granulocytes/100 WBC (Bld) 0.50 % Normal <=1.50 [facility] Comment on above: Performed By: #### V ANCL #### [place] [address] [place] [address] [employer]ator - Linda WEBBIA [id number] Lymphocytes (Bld) [#/Vol] 2.13 10*3/uL Normal 1.20-3.40 [facility] Comment on above: Performed By: #### V ANCL #### [facility] [address] [place] [address] [employer]ator - Linda Das CLIA [id number] Lymphocytes/100 WBC (Bld) 20.6 % Normal 20.0-40.0 [facility] Comment on above: Performed By: #### V ANCL #### [place] [address] [place] [address] [employer]ator - Linda WEBBIA [id number] MCH (RBC) [Entitic mass] 29.6 pg Normal 27.0-31.0 [facility] Comment on above: Performed By: #### V ANCL #### [place] [address] [employer]ator - Linda WEBBIA [id number] MCHC (RBC) [Mass/Vol] 32.1 g/dL Normal 32.0-36.0 [facility] Comment on above: Performed By: #### V ANCL #### [place] [address] [employer]ator - Linda WEBBIA [id number] MCV (RBC) [Entitic vol] 92.3 fL Normal 80.0-100.0 [facility] Comment on above: Performed By: #### V ANCL #### [place] [address] [employer]ator - Linda Das CLIA [id number] Monocytes (Bld) [#/Vol] 1.05 10*3/uL High 0.10-0.60 [facility] Comment on above: Performed By: #### V ANCL #### [place] [address] [employer] - Linda Das CLIA [id number] Monocytes/100 WBC (Bld) 10.2 % High <=8.0 [facility] Comment on above: Performed By: #### V ANCL #### [place] [address] [employer]ator - Linda Das CLIA [id number] Neutrophils (Bld) [#/Vol] 6.82 10*3/uL High 1.40-6.50 [facility] Comment on above: Performed By: #### V ANCL #### [place] [address] [employer] Integrator - Linda Das CLIA [id number] Neutrophils/100 WBC (Bld) 65.9 % Normal 50.0-70.0 [facility] Comment on above: Performed By: #### V ANCL #### [address] [place] [address] [employer] Integrator - Linda WEBBIA [id number] Nucleated RBC (Bld) [#/Vol] 0.00 10*3/uL Normal <=0.10 [facility] Comment on above: Performed By: #### V ANCL #### [address] [place] [address] Software Integrator - Linda WEBBIA [id number] Platelet mean volume (Bld) [Entitic vol] 10.9 fL Normal 9.0-13.0 [facility] Comment on above: Performed By: #### V ANCL #### [address] [place] [address] [employer]ator - Linda WEBBIA [id number] Platelets (Bld) [#/Vol] 192 10*3/uL Normal 130-400 [facility] Comment on above: Performed By: #### V ANCL #### [address] [place] [address] Software Integrator - Linda WEBBIA [id number] RBC (Bld) [#/Vol] 3.78 10*6/uL Low 4.00-6.30 [facility] Comment on above: Performed By: #### V ANCL #### [address] [place] [address] Software Integrator - Linda WEBBIA [id number] WBC (Bld) [#/Vol] 10.34 10*3/uL Normal 4.80-10.80 [facility] Comment on above: Performed By: #### V ANCL #### [address] [place] [address] Software Integrator - Linda WEBBIA [id number] Comprehensive metabolic 2000 panelon 07-19-2024 Albumin [Mass/Vol] 2.8 g/dL Low 3.4-5.0 [facility] Comment on above: Performed By: #### V ANCL #### [address] [place] [address] Software Integrator - Linda Reynoldsrell CLIA [id number] ALP [Catalytic activity/Vol] 137 U/L High 50-136 [facility] Comment on above: Performed By: #### V ANCL #### [facility] [address] [place] [address] [employer] Integrator - Linda Reynoldsrell CLIA [id number] ALT [Catalytic activity/Vol] 29 U/L Normal 14-59 [facility] Comment on above: Performed By: #### V ANCL #### [facility] [address] [place] [address] [employer] Integrator - Lindabridger ReynoldsDas CLIA [id number] Anion gap [Moles/Vol] 8.0 mmol/L Normal <=15.0 [facility] Comment on above: Performed By: #### V ANCL #### [facility] [address] [place] [address] [employer]ator - [employer] CLIA [id number] AST [Catalytic activity/Vol] 22 U/L Normal 15-37 [facility] Comment on above: Performed By: #### V ANCL #### [facility] [address] [place] [address] [employer]ator - [employer] CLIA [id number] Bilirubin [Mass/Vol] 0.2 mg/dL Normal 0.2-1.0 [facility] Comment on above: Performed By: #### V ANCL #### [facility] [address] [place], [place] [address] [place] [address] Software Integrator - Linda Das CLIA [id number] Calcium [Mass/Vol] 9.6 mg/dL Normal 8.5-10.1 [facility] Comment on above: Performed By: #### V ANCL #### [facility] [address] [place] [address] [employer]ator - [employer] CLIA [id number] Chloride [Moles/Vol] 97 mmol/L Low 98-107 [facility] Comment on above: Performed By: #### V ANCL #### [facility] [address] [place] [address] [employer]ator - Linda WEBBIA [id number] CO2 [Moles/Vol] 34 mmol/L High 21-32 [facility] Comment on above: Performed By: #### V ANCL #### [facility] [address] [place] [address] [employer] Integrator - Linda WEBBIA [id number] Creatinine [Mass/Vol] 0.22 mg/dL Low 0.51-0.95 [facility] Comment on above: Performed By: #### V ANCL #### [facility] [address] [place] [address] Software Integrator - Linda WEBBIA [id number] GFR/1.73 sq M.predicted MDRD (S/P/Bld) [Vol rate/Area] mL/min/{1.73_m2} Normal >=60 [facility] Comment on above: Performed By: #### V ANCL #### [facility] [address] [place] [address] [employer]ator - Linda WEBBIA [id number] Glucose [Mass/Vol] 136 mg/dL High 74-106 [facility] Comment on above: Performed By: #### V ANCL #### [facility] [address] [place] [address] [employer] Integrator - Linda HERRING [id number] HGFR GLOMERULAR FILTRATIO N RATE INTERPRETATION~The eGFR [...] months, with or without kidney damage.~ Normal [facility] Comment on above: Performed By: #### V ANCL #### [facility] [address] [place] [address] Software Integrator - Lindabridger Das CLIA [id number] Potassium [Moles/Vol] 3.6 mmol/L Normal 3.5-5.1 [facility] Comment on above: Performed By: #### V ANCL #### [facility] [address] [place] [address] Software Integrator - Lindabridger Das CLIA [id number] Protein [Mass/Vol] 6.2 g/dL Low 6.4-8.2 [facility] Comment on above: Performed By: #### V ANCL #### [address] [place] [address] Software Integrator - Linda Das CLIA [id number] Sodium [Moles/Vol] 139 mmol/L Normal 136-145 [facility] Comment on above: Performed By: #### V ANCL #### [facility] [address] [place] [address] [employer]ator - [employer] CLIA [id number] Urea nitrogen [Mass/Vol] 16 mg/dL Normal 7-17 [facility] Comment on above: Performed By: #### V ANCL #### [address] [place] [address] [employer]ator - [employer] CLIA [id number] GLUCOSE BY METERon Glucose [Mass/Vol] 116 mg/dL High 65-110 [facility] Comment on above: Performed By: #### V ANCL #### [facility] [address] [place] [address] [employer] CLIA [id number] CBC W Auto Differential pane l (Bld)on 07-18-2024 Basophils (Bld) [#/Vol] 0.10 10*3/uL Normal <=0.70 [facility] Comment on above: Performed By: #### U AR #### [facility] [address] [place] [address] Software Integrator - Linda WEBBIA [id number] #### 630-4 #### [facility] [address] [place] [address] [employer]ator - Linda WEBBIA [id number] Performed for [facility] [address] [place], [place] [address] Basophils/100 WBC (Bld) 0.9 % Normal <=2.0 [facility] Comment on above: Performed By: #### U AR #### [facility] [address] [place] [address] [employer]ator - Linda WEBBIA [id number] #### 630-4 #### [facility] [address] [place] [address] Software Integrator - Linda WEBBIA [id number] Performed for [facility] [address] [place] [address] Eosinophils (Bld) [#/Vol] 0.18 10*3/uL Normal <=0.70 [facility] Comment on above: Performed By: #### U AR #### [facility] [address] [place] [address] [employer]ator - Linda WEBBIA [id number] #### 630-4 #### [facility] [address] [place] [address] Software Integrator - Linda WEBBIA [id number] Performed for [facility] [address] [place], [place] [address] Eosinophils/100 WBC (Bld) 1.6 % Normal <=10.0 [facility] Comment on above: Performed By: #### U AR #### [facility] [address] [place] [address] [employer]ator - Linda WEBBIA [id number] #### 630-4 #### [facility] [address] [place] [address] Software Integrator - Linda WEBBIA [id number] Performed for [facility] [address] [place] [address] Erythrocyte distribution width (RBC) [Entitic vol] 50.5 fL High 36.4-46.3 [facility] Comment on above: Performed By: #### U AR #### [facility] [address] [place] [address] Software Integrator - Linda HERRING [id number] #### 630-4 #### [facility] [address] [place] [address] Software Integrator - Linda HERRING [id number] Performed for [facility] [address] [place] [address] Hematocrit (Bld) [Volume fraction] 33.4 % Low 37.0-47.0 [facility] Comment on above: Performed By: #### U AR #### [facility] [address] [place] [address] [employer]ator - Linda WEBBIA [id number] #### 630-4 #### [facility] [address] [place] [address] Software Integrator - Linda WEBBIA [id number] Performed for [facility] [address] [place] [address] Hemoglobin (Bld) [Mass/Vol] 10.3 g/dL Low 12.0-16.0 [facility] Comment on above: Performed By: #### U AR #### [facility] [address] [place] [address] [employer]ator - Linda HERRING [id number] #### 630-4 #### [facility] [address] [place] [address] [employer] Integrator - Linda HERRING [id number] Performed for [place] [address] [place] [address] Immature granulocytes (Bld) [#/Vol] 0.05 10*3/uL Normal <=0.10 [facility] Comment on above: Performed By: #### U AR #### [facility] [address] [place] [address] [employer]ator - Linda WEBBIA [id number] #### 630-4 #### [facility] [address] [place] [address] Software Integrator - Linda WEBBIA [id number] Performed for [facility] [address] [place], [place] [address] Immature granulocytes/100 WBC (Bld) 0.50 % Normal <=1.50 [facility] Comment on above: Performed By: #### U AR #### [facility] [address] [place] [address] [employer]ator - Linda WEBBIA [id number] #### 630-4 #### [facility] [address] [place] [address] Software [employer]ator - Linda WEBBIA [id number] Performed for [facility] [address] [place] [address] Lymphocytes (Bld) [#/Vol] 1.99 10*3/uL Normal 1.20-3.40 [facility] Comment on above: Performed By: #### U AR #### [facility] [address] [place] [address] [employer]ator - Linda WEBBIA [id number] #### 630-4 #### [facility] [address] [place] [address] [employer] Integrator - Linda WEBBIA [id number] Performed for [facility] [address] [place], [place] [address] Lymphocytes/100 WBC (Bld) 18.1 % Low 20.0-40.0 [facility] Comment on above: Performed By: #### U AR #### [facility] [address] [place] [address] [employer]ator - Linda WEBBIA [id number] #### 630-4 #### [facility] [address] [place] [address] [employer]ator - Linda WEBBIA [id number] Performed for [facility] [address] [place] [address] MCH (RBC) [Entitic mass] 29.7 pg Normal 27.0-31.0 [facility] Comment on above: Performed By: #### U AR #### [facility] [address] [place] [address] [employer]ator - Linda HERRING [id number] #### 630-4 #### [place] [address] [place] [address] Software Integrator - Linda HERRING [id number] Performed for [facility] [address] [place] [address] MCHC (RBC) [Mass/Vol] 30.8 g/dL Low 32.0-36.0 [facility] Comment on above: Performed By: #### U AR #### [place] [address] [place] [address] [employer]ator - Linda HERRING [id number] #### 630-4 #### [place] [address] [place] [address] Software Integrator - Linda HERRING [id number] Performed for [place] [address] [place] [address] MCV (RBC) [Entitic vol] 96.3 fL Normal 80.0-100.0 [facility] Comment on above: Performed By: #### U AR #### [place] [address] [place] [address] [employer]ator - Linda HERRING [id number] #### 630-4 #### [place] [address] [place] [address] [employer]ator - Linda HERRING [id number] Performed for [place] [address] [place] [address] Monocytes (Bld) [#/Vol] 0.83 10*3/uL High 0.10-0.60 [facility] Comment on above: Performed By: #### U AR #### [place] [address] [place] [address] [employer]ator - Linda HERRING [id number] #### 630-4 #### [facility] [address] [place] [address] Software Integrator - Linda WEBBIA [id number] Performed for [facility] [address] [place], [place] [address] Monocytes/100 WBC (Bld) 7.6 % Normal <=8.0 [facility] Comment on above: Performed By: #### U AR #### [facility] [address] [place] [address] [employer]ator - Linda WEBBIA [id number] #### 630-4 #### [facility] [address] [place] [address] Software Integrator - Linda WEBBIA [id number] Performed for [facility] [address] [place], [place] [address] Neutrophils (Bld) [#/Vol] 7.83 10*3/uL High 1.40-6.50 [facility] Comment on above: Performed By: #### U AR #### [facility] [address] [place] [address] [employer] Integrator - Linda WEBBIA [id number] #### 630-4 #### [facility] [address] [place] [address] Software Integrator - Linda WEBBIA [id number] Performed for [facility] [address] [place], [place] [address] Neutrophils/100 WBC (Bld) 71.3 % High 50.0-70.0 [facility] Comment on above: Performed By: #### U AR #### [facility] [address] [place] [address] [employer] Integrator - Linda WEBBIA [id number] #### 630-4 #### [facility] [address] [place] [address] Software Integrator - Linda WEBBIA [id number] Performed for [facility] [address] [place], [place] [address] Nucleated RBC (Bld) [#/Vol] 0.00 10*3/uL Normal <=0.10 [facility] Comment on above: Performed By: #### U AR #### [facility] [address] [place] [address] [employer]ator - Linda HERRING [id number] #### 630-4 #### [facility] [address] [place] [address] Software Integrator - Linda HERRING [id number] Performed for [facility] [address] [place] [address] Platelet mean volume (Bld) [Entitic vol] 10.7 fL Normal 9.0-13.0 [facility] Comment on above: Performed By: #### U AR #### [facility] [address] [place] [address] [employer]ator - Linda HERRING [id number] #### 630-4 #### [facility] [address] [place] [address] Software [employer]ator - Linda HERRING [id number] Performed for [facility] [address] [place] [address] Platelets (Bld) [#/Vol] 271 10*3/uL Normal 130-400 [facility] Comment on above: Performed By: #### U AR #### [facility] [address] [place] [address] [employer]ator - Linda HERRING [id number] #### 630-4 #### [facility] [address] [place] [address] [employer]ator - Linda HERRING [id number] Performed for [facility] [address] [place] [address] RBC (Bld) [#/Vol] 3.47 10*6/uL Low 4.00-6.30 [facility] Comment on above: Performed By: #### U AR #### [facility] [address] [place] [address] [employer]ator - Linda HERRING [id number] #### 630-4 #### [facility] [address] [place] [address] Software [employer]ator - Linda WEBBIA [id number] Performed for [facility] [address] [place] [address] WBC (Bld) [#/Vol] 10.98 10*3/uL High 4.80-10.80 [facility] Comment on above: Performed By: #### U AR #### [facility] [address] [place] [address] [employer]ator - Linda WEBBIA [id number] #### 630-4 #### [facility] [address] [place] [address] [employer] WEBBIA [id number] Performed for [facility] [address] [place] [address] Comprehensive metabolic 2000 panelon 07-18-2024 Albumin [Mass/Vol] 2.8 g/dL Low 3.4-5.0 [facility] Comment on above: Performed By: #### 1 8481-2 #### [facility] [address] [place] [address] [employer] WEBBIA [id number] ALP [Catalytic activity/Vol] 133 U/L Normal 50-136 [facility] Comment on above: Performed By: #### 1 8481-2 #### [facility] [address] [place] [address] [employer] WEBBIA [id number] ALT [Catalytic activity/Vol] 26 U/L Normal 14-59 [facility] Comment on above: Performed By: #### 1 8481-2 #### [facility] [address] [place] [address] [employer] WEBBIA [id number] Anion gap [Moles/Vol] 5.0 mmol/L Normal <=15.0 [facility] Comment on above: Performed By: #### 1 8481-2 #### [facility] [address] [place] [address] [employer] WEBBIA [id number] AST [Catalytic activity/Vol] 22 U/L Normal 15-37 [facility] Comment on above: Performed By: #### 1 8481-2 #### [facility] [address] [place] [address] [employer] Linda Das CLIA [id number] Bilirubin [Mass/Vol] mg/dL Normal 0.2-1.0 [facility] Comment on above: Performed By: #### 1 8481-2 #### [facility] [address] [place] [address] [employer] WEBBIA [id number] Calcium [Mass/Vol] 9.7 mg/dL Normal 8.5-10.1 [facility] Comment on above: Performed By: #### 1 8481-2 #### [address] [place] [address] [employer] Das CLIA [id number] Chloride [Moles/Vol] 102 mmol/L Normal 98-107 [facility] Comment on above: Performed By: #### 1 8481-2 #### [facility] [address] [place] [address] [employer] Das CLIA [id number] CO2 [Moles/Vol] 36 mmol/L High 21-32 [facility] Comment on above: Performed By: #### 1 8481-2 #### [facility] [address] [place], [place] [address] [place] [address] [employer] Das CLIA [id number] Creatinine [Mass/Vol] 0.21 mg/dL Low 0.51-0.95 [facility] Comment on above: Performed By: #### 1 8481-2 #### [place] [address] [place] [address] [employer] Linda Das CLIA [id number] GFR/1.73 sq M.predicted MDRD (S/P/Bld) [Vol rate/Area] mL/min/{1.73_m2} Normal >=60 [facility] Comment on above: Performed By: #### 1 8481-2 #### [facility] [address] [place] [address] [employer] HERRING [id number] Glucose [Mass/Vol] 120 mg/dL High 74-106 [facility] Comment on above: Performed By: #### 1 8481-2 #### [facility] [address] [place] [address] [employer] HERRING [id number] HGFR GLOMERULAR FILTRATIO N RATE INTERPRETATION~The eGFR [...] months, with or without kidney damage.~ Normal [facility] Comment on above: Performed By: #### 1 8481-2 #### [facility] [address] [place] [address] [employer] HERRING [id number] Potassium [Moles/Vol] 3.5 mmol/L Normal 3.5-5.1 [facility] Comment on above: Performed By: #### 1 8481-2 #### [facility] [address] [place] [address] [employer] HERRING [id number] Protein [Mass/Vol] 6.8 g/dL Normal 6.4-8.2 [facility] Comment on above: Performed By: #### 1 8481-2 #### [facility] [address] [place] [address] [employer] HERRING [id number] Sodium [Moles/Vol] 143 mmol/L Normal 136-145 [facility] Comment on above: Performed By: #### 1 8481-2 #### [facility] [address] [place] [address] [employer] WEBBIA [id number] Urea nitrogen [Mass/Vol] 12 mg/dL Normal 7-17 [facility] Comment on above: Performed By: #### 1 8481-2 #### [facility] [address] [place] [address] [employer] WEBBIA [id number] GLUCOSE BY METERon 4 Glucose [Mass/Vol] 158 mg/dL High 65-110 [facility] Comment on above: Performed By: #### U AR #### [facility] [address] [place] [address] [employer] WEBBIA [id number] #### 630-4 #### [facility] [address] [place] [address] [employer] WEBBIA [id number] Performed for [facility] [address] [place] [address] Glucose [Mass/Vol] 218 mg/dL High 65-110 [facility] Comment on above: Performed By: #### V ANCL #### [facility] [address] [place] [address] [employer] WEBBIA [id number] Glucose [Mass/Vol] 131 mg/dL High 65-110 [facility] Comment on above: Performed By: #### U AR #### [facility] [address] [place] [address] [employer] WEBBIA [id number] #### 630-4 #### [facility] [address] [place] [address] [employer] WEBBIA [id number] Performed for [facility] [address] [place] [address] CBC W Auto Differential pane l (Bld)on 07-17-2024 Basophils (Bld) [#/Vol] 0.11 10*3/uL Normal <=0.70 [facility] Comment on above: Performed By: #### Mariana Urban, 7 #### [facility] [address] [place] [address] [employer] WEBBIA [id number] Performed for [facility] [address] [place] [address] #### SPUTUME #### [facility] [address] [place] [address] [employer] WEBBIA [id number] Basophils/100 WBC (Bld) 1.5 % Normal <=2.0 [facility] Comment on above: Performed By: #### Mariana Urban, #### [facility] [address] [place] [address] [employer] Linda Das CLIA [id number] Performed for [facility] [address] [place] [address] #### SPUTUME #### [facility] [address] [place] [address] [employer] WEBBIA [id number] Eosinophils (Bld) [#/Vol] 0.17 10*3/uL Normal <=0.70 [facility] Comment on above: Performed By: #### Mariana Urban, 7 #### [facility] [address] [place] [address] [employer] Linda Das CLIA [id number] Performed for [facility] [address] [place] [address] #### SPUTUME #### [facility] [address] [place] [address] [employer] WEBBIA [id number] Eosinophils/100 WBC (Bld) 2.3 % Normal <=10.0 [facility] Comment on above: Performed By: #### Mariana Urban, 7 #### [facility] [address] [place] [address] [employer] HERRING [id number] Performed for [facility] [address] [place] [address] #### SPUTUME #### [facility] [address] [place] [address] [employer] HERRING [id number] Erythrocyte distribution width (RBC) [Entitic vol] 53.6 fL High 36.4-46.3 [facility] Comment on above: Performed By: #### G S, 62-7 #### [facility] [address] [place] [address] [employer] HERRING [id number] Performed for [facility] [address] [place] [address] #### SPUTUME #### [facility] [address] [place] [address] [employer] HERRING [id number] Hematocrit (Bld) [Volume fraction] 34.4 % Low 37.0-47.0 [facility] Comment on above: Performed By: #### G S, 62-7 #### [facility] [address] [place] [address] [employer] HERRING [id number] Performed for [facility] [address] [place] [address] #### SPUTUME #### [facility] [address] [place] [address] [employer] HERRING [id number] Hemoglobin (Bld) [Mass/Vol] 10.4 g/dL Low 12.0-16.0 [facility] Comment on above: Performed By: #### G S, 624-7 #### [facility] [address] [place] [address] [employer] HERRING [id number] Performed for [facility] [address] [place] [address] #### SPUTUME #### [facility] [address] [place] [address] [employer] Linda Das CLIA [id number] Immature granulocytes (Bld) [#/Vol] 0.06 10*3/uL Normal <=0.10 [facility] Comment on above: Performed By: #### Mariana Urban, -7 #### [facility] [address] [place] [address] [employer] Linda Das CLIA [id number] Performed for [facility] [address] [place] [address] #### SPUTUME #### [place] [address] [place] [address] [employer] Linda Das CLIA [id number] Immature granulocytes/100 WBC (Bld) 0.80 % Normal <=1.50 [facility] Comment on above: Performed By: #### Marinaa Urban, 7 #### [place] [address] [place] [address] [employer] Linda Das CLIA [id number] Performed for [facility] [address] [place] [address] #### SPUTUME #### [place] [address] [place] [address] [employer] WEBBIA [id number] Lymphocytes (Bld) [#/Vol] 1.56 10*3/uL Normal 1.20-3.40 [facility] Comment on above: Performed By: #### Mariana Urban, 7 #### [facility] [address] [place] [address] [employer] Linda Das CLIA [id number] Performed for [facility] [address] [place] [address] #### SPUTUME #### [place] [address] [place] [address] [employer] Linda Das CLIA [id number] Lymphocytes/100 WBC (Bld) 20.9 % Normal 20.0-40.0 [facility] Comment on above: Performed By: #### Mariana Urban, 7 #### [place] [address] [place] [address] [employer] WEBBIA [id number] Performed for [facility] [address] [place] [address] #### SPUTUME #### [place] [address] [place] [address] [employer] HERRING [id number] MCH (RBC) [Entitic mass] 30.2 pg Normal 27.0-31.0 [facility] Comment on above: Performed By: #### Mariana Urban, 62-7 #### [place] [address] [place] [address] [employer] WEBBIA [id number] Performed for [place] [address] [place] [address] #### SPUTUME #### [place] [address] [place] [address] [employer] HERRING [id number] MCHC (RBC) [Mass/Vol] 30.2 g/dL Low 32.0-36.0 [facility] Comment on above: Performed By: #### Mariana Urban, 97-7 #### [place] [address] [place] [address] [employer] HERRING [id number] Performed for [place] [address] [place] [address] #### SPUTUME #### [place] [address] [place] [address] [employer] HERRING [id number] MCV (RBC) [Entitic vol] 100.0 fL Normal 80.0-100.0 [facility] Comment on above: Performed By: #### Mariana Urban, 87-7 #### [address] [place] [address] [employer] HERRING [id number] Performed for [place] [address] [place] [address] #### SPUTUME #### [address] [place] [address] [employer] WEBBIA [id number] Monocytes (Bld) [#/Vol] 0.91 10*3/uL High 0.10-0.60 [facility] Comment on above: Performed By: #### Mariana Urban, 53-7 #### [facility] [address] [place] [address] [employer] Linda Das CLIA [id number] Performed for [facility] [address] [place] [address] #### SPUTUME #### [facility] [address] [place] [address] [employer] WEBBIA [id number] Monocytes/100 WBC (Bld) 12.2 % High <=8.0 [facility] Comment on above: Performed By: #### Mariana Urban, 26-7 #### [facility] [address] [place] [address] [employer] Linda Das CLIA [id number] Performed for [facility] [address] [place] [address] #### SPUTUME #### [place] [address] [place] [address] [employer] WEBBIA [id number] Neutrophils (Bld) [#/Vol] 4.65 10*3/uL Normal 1.40-6.50 [facility] Comment on above: Performed By: #### Mariana Urban, 59-7 #### [facility] [address] [place] [address] [employer] WEBBIA [id number] Performed for [facility] [address] [place] [address] #### SPUTUME #### [place] [address] [place] [address] [employer] WEBBIA [id number] Neutrophils/100 WBC (Bld) 62.3 % Normal 50.0-70.0 [facility] Comment on above: Performed By: #### Mariana Urban, 624-7 #### [facility] [address] [place] [address] [employer] WEBBIA [id number] Performed for [facility] [address] [place] [address] #### SPUTUME #### [facility] [address] [place] [address] [employer] WEBBIA [id number] Nucleated RBC (Bld) [#/Vol] 0.00 10*3/uL Normal <=0.10 [facility] Comment on above: Performed By: #### Mariana Urban, 7 #### [facility] [address] [place] [address] [employer] WEBBIA [id number] Performed for [facility] [address] [place] [address] #### SPUTUME #### [place] [address] [place] [address] [employer] HERRING [id number] Platelet mean volume (Bld) [Entitic vol] 10.2 fL Normal 9.0-13.0 [facility] Comment on above: Performed By: #### Mariana Urban, 7 #### [facility] [address] [place] [address] [employer] WEBBIA [id number] Performed for [facility] [address] [place] [address] #### SPUTUME #### [facility] [address] [place] [address] [employer] HERRING [id number] Platelets (Bld) [#/Vol] 282 10*3/uL Normal 130-400 [facility] Comment on above: Performed By: #### G Wilmar, 7 #### [facility] [address] [place] [address] [employer] WEBBIA [id number] Performed for [facility] [address] [place] [address] #### SPUTUME #### [facility] [address] [place] [address] [employer] HERRING [id number] RBC (Bld) [#/Vol] 3.44 10*6/uL Low 4.00-6.30 [facility] Comment on above: Performed By: #### G Wilmar, 624-7 #### [facility] [address] [place] [address] [employer] HERRING [id number] Performed for [facility] [address] [place] [address] #### SPUTUME #### [place] [address] [place] [address] [employer] HERRING [id number] WBC (Bld) [#/Vol] 7.46 10*3/uL Normal 4.80-10.80 [facility] Comment on above: Performed By: #### Mariana Urban, 624-7 #### [facility] [address] [place] [address] [employer] HERRING [id number] Performed for [facility] [address] [place] [address] #### SPUTUME #### [facility] [address] [place] [address] [employer] HERRING [id number] CULTURE URINEon 07-17-2024 Bacteria identified Cx Nom (U) PSEUDOMONAS AERUGINOSA SENT OUT FOR CEFEPIME SUSCEPTIBILITY TESTING Pseudomonas aeruginosa ORGANISM: Isolate 1 ANTIBIOTIC INTERP QUE Piperacillin/Tazobactam S 16 Imipenem I 8 Meropenem I 4 Amikacin S 16 Gentamicin I 8 Tobramycin S <=1 Ciprofloxacin R >=4 Levofloxacin R 4 Normal [facility] Comment on above: Performed By: #### U AR #### [facility] [address] [place] [address] [employer] HERRING [id number] #### 630-4 #### [facility] [address] [place] [address] [employer] Linda Das CLIA [id number] Performed for [facility] [address] [place] [address] Comprehensive metabolic 2000 panelon 07-17-2024 Albumin [Mass/Vol] 2.5 g/dL Low 3.4-5.0 [facility] Comment on above: Performed By: #### 1 8481-2 #### [facility] [address] [place] [address] [employer] - Linda Das CLIA [id number] ALP [Catalytic activity/Vol] 129 U/L Normal 50-136 [facility] Comment on above: Performed By: #### 1 8481-2 #### [facility] [address] [place] [address] [employer] - Linda Das CLIA [id number] ALT [Catalytic activity/Vol] 23 U/L Normal 14-59 [facility] Comment on above: Performed By: #### 1 8481-2 #### [facility] [address] [place] [address] [employer] - Linda Das CLIA [id number] Anion gap [Moles/Vol] 5.0 mmol/L Normal <=15.0 [facility] Comment on above: Performed By: #### 1 8481-2 #### [facility] [address] [place] [address] [employer] - Linda Das CLIA [id number] AST [Catalytic activity/Vol] 21 U/L Normal 15-37 [facility] Comment on above: Performed By: #### 1 8481-2 #### [facility] [address] [place] [address] [employer] - Linda Das CLIA [id number] Bilirubin [Mass/Vol] mg/dL Normal 0.2-1.0 [facility] Comment on above: Performed By: #### 1 8481-2 #### [facility] [address] [place] [address] [employer] - Linda Das CLIA [id number] Calcium [Mass/Vol] 9.0 mg/dL Normal 8.5-10.1 [facility] Comment on above: Performed By: #### 1 8481-2 #### [facility] [address] [place] [address] [employer] WEBBIA [id number] Chloride [Moles/Vol] 114 mmol/L High 98-107 [facility] Comment on above: Performed By: #### 1 8481-2 #### [address] [place] [address] [employer] WEBBIA [id number] CO2 [Moles/Vol] 30 mmol/L Normal 21-32 [facility] Comment on above: Performed By: #### 1 8481-2 #### [facility] [address] [place] [address]. [place] [address] [employer] HERRING [id number] Creatinine [Mass/Vol] 0.27 mg/dL Low 0.51-0.95 [facility] Comment on above: Performed By: #### 1 8481-2 #### [facility] [address] [facility] [place] [address] [employer] - [employer] HERRING [id number] GFR/1.73 sq M.predicted MDRD (S/P/Bld) [Vol rate/Area] mL/min/{1.73_m2} Normal >=60 [facility] Comment on above: Performed By: #### 1 8481-2 #### [address] [place] [address] [employer] WEBBIA [id number] Glucose [Mass/Vol] 185 mg/dL High 74-106 [facility] Comment on above: Performed By: #### 1 8481-2 #### [facility] [address] [place] [address]. [place] [address] [employer] HERRING [id number] HGFR GLOMERULAR FILTRATIO N RATE INTERPRETATION~The eGFR [...] months, with or without kidney damage.~ Normal [facility] Comment on above: Performed By: #### 1 8481-2 #### [facility] [address] [place] [address] [employer] WEBBIA [id number] Potassium [Moles/Vol] 4.2 mmol/L Normal 3.5-5.1 [facility] Comment on above: Performed By: #### 1 8481-2 #### [facility] [address] [place] [address] [employer] - Linda WEBBIA [id number] Protein [Mass/Vol] 6.1 g/dL Low 6.4-8.2 [facility] Comment on above: Performed By: #### 1 8481-2 #### [facility] [address] [place] [address] [employer] - Linda WEBBIA [id number] Sodium [Moles/Vol] 149 mmol/L High 136-145 [facility] Comment on above: Performed By: #### 1 8481-2 #### [facility] [address] [place] [address] [employer] - Linda WEBBIA [id number] Urea nitrogen [Mass/Vol] 8 mg/dL Normal 7-17 [facility] Comment on above: Performed By: #### 1 8481-2 #### [facility] [address] [place] [address] [employer] - [employer] HERRING [id number] GLUCOSE BY METERon 4 Glucose [Mass/Vol] 126 mg/dL High 65-110 [facility] Comment on above: Performed By: #### U AR #### [address] [place] [address] [employer] - [employer] HERRING [id number] #### 630-4 #### [address] [place] [address] [employer] - Linda WEBBIA [id number] Performed for [place] [address] CBC W Auto Differential pane l (Bld)on 07-16-2024 Basophils (Bld) [#/Vol] 0.10 10*3/uL Normal <=0.70 [facility] Comment on above: Performed By: #### 5 7021-8 #### [address] [place] [address] [employer] - Linda WEBBIA [id number] Basophils/100 WBC (Bld) 1.2 % Normal <=2.0 [facility] Comment on above: Performed By: #### 5 7021-8 #### [address] [place] [address] [employer] - Linda HERRING [id number] Eosinophils (Bld) [#/Vol] 0.16 10*3/uL Normal <=0.70 [facility] Comment on above: Performed By: #### 5 7021-8 #### [address] [place] [address] [employer] - Linda WEBBIA [id number] Eosinophils/100 WBC (Bld) 1.9 % Normal <=10.0 [facility] Comment on above: Performed By: #### 5 7021-8 #### [address] [place] [address] [employer] - Linda HERRING [id number] Erythrocyte distribution width (RBC) [Entitic vol] 48.9 fL High 36.4-46.3 [facility] Comment on above: Performed By: #### 5 7021-8 #### [facility] [address] [place] [address] [employer] - [employer] WEBBIA [id number] Hematocrit (Bld) [Volume fraction] 29.7 % Low 37.0-47.0 [facility] Comment on above: Performed By: #### 5 7021-8 #### [facility] [address] [place] [address] [employer] - Linda WEBBIA [id number] Hemoglobin (Bld) [Mass/Vol] 9.6 g/dL Low 12.0-16.0 [facility] Comment on above: Performed By: #### 5 7021-8 #### [place] [address] [place] [address] [employer] Linda WEBBIA [id number] Immature granulocytes (Bld) [#/Vol] 0.05 10*3/uL Normal <=0.10 [facility] Comment on above: Performed By: #### 5 7021-8 #### [place] [address] [place] [address] [employer] WEBBIA [id number] Immature granulocytes/100 WBC (Bld) 0.60 % Normal <=1.50 [facility] Comment on above: Performed By: #### 5 7021-8 #### [place] [address] [place] [address] [employer] WEBBIA [id number] Lymphocytes (Bld) [#/Vol] 1.94 10*3/uL Normal 1.20-3.40 [facility] Comment on above: Performed By: #### 5 7021-8 #### [facility] [address] [place] [address] [employer] WEBBIA [id number] Lymphocytes/100 WBC (Bld) 22.9 % Normal 20.0-40.0 [facility] Comment on above: Performed By: #### 5 7021-8 #### [place] [address] [place] [address] [employer] HERRING [id number] MCH (RBC) [Entitic mass] 30.0 pg Normal 27.0-31.0 [facility] Comment on above: Performed By: #### 5 7021-8 #### [place] [address] [place] [address] [employer] WEBBIA [id number] MCHC (RBC) [Mass/Vol] 32.3 g/dL Normal 32.0-36.0 [facility] Comment on above: Performed By: #### 5 7021-8 #### [address] [place] [address] [employer] WEBBIA [id number] MCV (RBC) [Entitic vol] 92.8 fL Normal 80.0-100.0 [facility] Comment on above: Performed By: #### 5 7021-8 #### [address] [place] [address] [employer] WEBBIA [id number] Monocytes (Bld) [#/Vol] 0.71 10*3/uL High 0.10-0.60 [facility] Comment on above: Performed By: #### 5 7021-8 #### [address] [address] [facility] [place] [address] [employer] WEBBIA [id number] Monocytes/100 WBC (Bld) 8.4 % High <=8.0 [facility] Comment on above: Performed By: #### 5 7021-8 #### [place] [address] [place] [address] [employer] Linda Das CLIA [id number] Neutrophils (Bld) [#/Vol] 5.52 10*3/uL Normal 1.40-6.50 [facility] Comment on above: Performed By: #### 5 7021-8 #### [address] [place] [address] [employer] Das CLIA [id number] Neutrophils/100 WBC (Bld) 65.0 % Normal 50.0-70.0 [facility] Comment on above: Performed By: #### 5 7021-8 #### [address] [place] [address] [employer] HERRING [id number] Nucleated RBC (Bld) [#/Vol] 0.00 10*3/uL Normal <=0.10 [facility] Comment on above: Performed By: #### 5 7021-8 #### [address] [place] [address] [employer] WEBBIA [id number] Platelet mean volume (Bld) [Entitic vol] 9.9 fL Normal 9.0-13.0 [facility] Comment on above: Performed By: #### 5 7021-8 #### [address] [place] [address] [employer] WEBBIA [id number] Platelets (Bld) [#/Vol] 288 10*3/uL Normal 130-400 [facility] Comment on above: Performed By: #### 5 7021-8 #### [address] [place] [address] [employer] HERRING [id number] RBC (Bld) [#/Vol] 3.20 10*6/uL Low 4.00-6.30 [facility] Comment on above: Performed By: #### 5 7021-8 #### [address] [place] [address] [employer] HERRING [id number] WBC (Bld) [#/Vol] 8.48 10*3/uL Normal 4.80-10.80 [facility] Comment on above: Performed By: #### 5 7021-8 #### [address] [place] [address] [employer] HERRING [id number] Comprehensive metabolic 2000 panelon 07-16-2024 Albumin [Mass/Vol] 2.6 g/dL Low 3.4-5.0 [facility] Comment on above: Performed By: #### 2 4323-8 #### [facility] [address] [place] [address] [employer] Linda Das CLIA [id number] ALP [Catalytic activity/Vol] 126 U/L Normal 50-136 [facility] Comment on above: Performed By: #### 2 4323-8 #### [facility] [address] [place] [address] [employer] Linda Das CLIA [id number] ALT [Catalytic activity/Vol] 21 U/L Normal 14-59 [facility] Comment on above: Performed By: #### 2 4323-8 #### [facility] [address] [place] [address] [employer] Linda Das CLIA [id number] Anion gap [Moles/Vol] 6.0 mmol/L Normal <=15.0 [facility] Comment on above: Performed By: #### 2 4323-8 #### [facility] [address] [place] [address] [employer] Linda Das CLIA [id number] AST [Catalytic activity/Vol] 16 U/L Normal 15-37 [facility] Comment on above: Performed By: #### 2 4323-8 #### [facility] [address] [place] [address] [employer] Linda Reynoldsrell CLIA [id number] Bilirubin [Mass/Vol] mg/dL Normal 0.2-1.0 [facility] Comment on above: Performed By: #### 2 4323-8 #### [facility] [address] [place] [address] [employer] Linda Das CLIA [id number] Calcium [Mass/Vol] 8.8 mg/dL Normal 8.5-10.1 [facility] Comment on above: Performed By: #### 2 4323-8 #### [facility] [address] [place] [address] [employer] WEBBIA [id number] Chloride [Moles/Vol] 107 mmol/L Normal 98-107 [facility] Comment on above: Performed By: #### 2 4323-8 #### [facility] [address] [place] [address] [employer] HERRING [id number] CO2 [Moles/Vol] 30 mmol/L Normal 21-32 [facility] Comment on above: Performed By: #### 2 4323-8 #### [facility] [address] [facility]. [place] [address] [employer] Linda Thiago HERRING [id number] Creatinine [Mass/Vol] 0.23 mg/dL Low 0.51-0.95 [facility] Comment on above: Performed By: #### 2 4323-8 #### [facility] [address] [place] [address]. [place] [address] [employer] HERRING [id number] GFR/1.73 sq M.predicted MDRD (S/P/Bld) [Vol rate/Area] mL/min/{1.73_m2} Normal >=60 [facility] Comment on above: Performed By: #### 2 4323-8 #### [facility] [address] [facility]. [place] [address] [employer] HERRING [id number] Glucose [Mass/Vol] 102 mg/dL Normal 74-106 [facility] Comment on above: Performed By: #### 2 4323-8 #### [facility] [address] [place] [address]. [place] [address] [employer] HERRING [id number] HGFR GLOMERULAR FILTRATIO N RATE INTERPRETATION~The eGFR [...] months, with or without kidney damage.~ Normal [facility] Comment on above: Performed By: #### 2 4323-8 #### [facility] [address] [place] [address] [employer] CLIA [id number] Potassium [Moles/Vol] 3.3 mmol/L Low 3.5-5.1 [facility] Comment on above: Performed By: #### 2 432-8 #### [facility] [address] [place] [address] [employer] WEBBIA [id number] Protein [Mass/Vol] 6.1 g/dL Low 6.4-8.2 [facility] Comment on above: Performed By: #### 2 4323-8 #### [facility] [address] [place] [address] [employer] Linda Das JONIA [id number] Sodium [Moles/Vol] 143 mmol/L Normal 136-145 [facility] Comment on above: Performed By: #### 2 4323-8 #### [facility] [address] [place] [address] [employer] Bill.ForwardIA [id number] Urea nitrogen [Mass/Vol] 10 mg/dL Normal 7-17 [facility] Comment on above: Performed By: #### 2 4323-8 #### [facility] [address] [place] [address] [employer] Linda Das Bill.ForwardCORBY [id number] VANCOMYCIN LEVELon 4 HVANCL This level should be evaluated based on draw time in relation to administration time. Goal pharmacokinetic values may need to be calculated and will vary depending on indication and intended bacteria coverage. Contact pharmacy @ [phone] with questions. Normal [facility] Comment on above: Performed By: #### U AR #### [facility] [address] [place] [address] [employer] HERRING [id number] #### 630-4 #### [facility] [address] [place] [address] [employer] WEBBIA [id number] Performed for [facility] [address] [place] [address] VANCOMYCIN LEVEL 23.6 ug/mL Normal [facility] Comment on above: Performed By: #### U AR #### [facility] [address] [place] [address] [employer] HERRING [id number] #### 630-4 #### [facility] [address] [place] [address] [employer] HERRING [id number] Performed for [facility] [address] [place] [address] HVANCL This level should be evaluated based on draw time in relation to administration time. Goal pharmacokinetic values may need to be calculated and will vary depending on indication and intended bacteria coverage. Contact pharmacy @ [phone] with questions. Normal [facility] Comment on above: Performed By: #### V ANCL #### [facility] [address] [place] [address] [employer] HERRING [id number] VANCOMYCIN LEVEL <3.0 Normal [facility] Comment on above: Performed By: #### V ANCL #### [facility] [address] [place] [address] [employer] HERRING [id number] CBC W Auto Differential pane l (Bld)on 07-15-2024 Basophils (Bld) [#/Vol] 0.14 10*3/uL Normal <=0.70 [facility] Comment on above: Performed By: #### 5 7021-8 #### [facility] [address] [place] [address] [employer] HERRING [id number] Basophils/100 WBC (Bld) 1.4 % Normal <=2.0 [facility] Comment on above: Performed By: #### 5 7021-8 #### [facility] [address] [facility]. [place] [address] [employer] Linda Das CLIA [id number] Eosinophils (Bld) [#/Vol] 0.18 10*3/uL Normal <=0.70 [facility] Comment on above: Performed By: #### 5 7021-8 #### [address] [place] [address] [employer] Linda Das CLIA [id number] Eosinophils/100 WBC (Bld) 1.8 % Normal <=10.0 [facility] Comment on above: Performed By: #### 5 7021-8 #### [place] [address] [employer] Linda Das CLIA [id number] Erythrocyte distribution width (RBC) [Entitic vol] 48.3 fL High 36.4-46.3 [facility] Comment on above: Performed By: #### 5 7021-8 #### [address] [place] [address] [employer] - Linda Das CLIA [id number] Hematocrit (Bld) [Volume fraction] 35.0 % Low 37.0-47.0 [facility] Comment on above: Performed By: #### 5 7021-8 #### [address] [place] [address] [employer] - Linda Das CLIA [id number] Hemoglobin (Bld) [Mass/Vol] 11.3 g/dL Low 12.0-16.0 [facility] Comment on above: Performed By: #### 5 7021-8 #### [place] [address] [employer] Linda Das CLIA [id number] Immature granulocytes (Bld) [#/Vol] 0.11 10*3/uL High <=0.10 [facility] Comment on above: Performed By: #### 5 7021-8 #### [facility] [address] [place] [address] [employer] Linda Das CLIA [id number] Immature granulocytes/100 WBC (Bld) 1.10 % Normal <=1.50 [facility] Comment on above: Performed By: #### 5 7021-8 #### [place] [address] [place] [address] [employer] Linda WEBBIA [id number] Lymphocytes (Bld) [#/Vol] 2.73 10*3/uL Normal 1.20-3.40 [facility] Comment on above: Performed By: #### 5 7021-8 #### [place] [address] [place] [address] [employer] WEBBIA [id number] Lymphocytes/100 WBC (Bld) 26.6 % Normal 20.0-40.0 [facility] Comment on above: Performed By: #### 5 7021-8 #### [place] [address] [place] [address] [employer] - [employer] WEBBIA [id number] MCH (RBC) [Entitic mass] 30.0 pg Normal 27.0-31.0 [facility] Comment on above: Performed By: #### 5 7021-8 #### [place] [address] [facility]. [place] [address] [employer] - Linda Das CLIA [id number] MCHC (RBC) [Mass/Vol] 32.3 g/dL Normal 32.0-36.0 [facility] Comment on above: Performed By: #### 5 7021-8 #### [place] [address] [place] [address] [employer] - [employer] WEBBIA [id number] MCV (RBC) [Entitic vol] 92.8 fL Normal 80.0-100.0 [facility] Comment on above: Performed By: #### 5 7021-8 #### [place] [address] [place] [address] [employer] WEBBIA [id number] Monocytes (Bld) [#/Vol] 0.88 10*3/uL High 0.10-0.60 [facility] Comment on above: Performed By: #### 5 7021-8 #### [place] [address] [place] [address] [employer] - Linda Das CLIA [id number] Monocytes/100 WBC (Bld) 8.6 % High <=8.0 [facility] Comment on above: Performed By: #### 5 7021-8 #### [address] [place] [address] [employer] - Linda Das CLIA [id number] Neutrophils (Bld) [#/Vol] 6.22 10*3/uL Normal 1.40-6.50 [facility] Comment on above: Performed By: #### 5 7021-8 #### [address] [place] [address] [employer] - Linda Das CLIA [id number] Neutrophils/100 WBC (Bld) 60.5 % Normal 50.0-70.0 [facility] Comment on above: Performed By: #### 5 7021-8 #### [address] [place] [address] [employer] - Linda Das CLIA [id number] Nucleated RBC (Bld) [#/Vol] 0.00 10*3/uL Normal <=0.10 [facility] Comment on above: Performed By: #### 5 7021-8 #### [address] [place] [address] [employer] - Linda Das CLIA [id number] Platelet mean volume (Bld) [Entitic vol] 10.2 fL Normal 9.0-13.0 [facility] Comment on above: Performed By: #### 5 7021-8 #### [address] [place] [address] [employer] - Linda Das CLIA [id number] Platelets (Bld) [#/Vol] 329 10*3/uL Normal 130-400 [facility] Comment on above: Performed By: #### 5 7021-8 #### [facility] [address] [place] [address] [employer] - Linda HERRING [id number] RBC (Bld) [#/Vol] 3.77 10*6/uL Low 4.00-6.30 [facility] Comment on above: Performed By: #### 5 7021-8 #### [facility] [address] [place] [address] [employer] HERRING [id number] WBC (Bld) [#/Vol] 10.26 10*3/uL Normal 4.80-10.80 [facility] Comment on above: Performed By: #### 5 7021-8 #### [facility] [address] [place] [address]. [place] [address] [employer] HERRING [id number] CHEST AP PORTABLEon 07-15-20 CHEST AP PORTABLE EXAM: CHEST AP DEBBY [...] No developing new airspace abnormality evident. Normal [facility] Comprehensive metabolic 2000 panelon 07-15-2024 Albumin [Mass/Vol] 3.1 g/dL Low 3.4-5.0 [facility] Comment on above: Performed By: #### 5 7021-8 #### [facility] [address] [facility] [place] [address] [employer] HERRING [id number] ALP [Catalytic activity/Vol] 136 U/L Normal 50-136 [facility] Comment on above: Performed By: #### 5 7021-8 #### [facility] [address] [place] [address] [employer] - Linda Das CLIA [id number] ALT [Catalytic activity/Vol] 26 U/L Normal 14-59 [facility] Comment on above: Performed By: #### 5 7021-8 #### [facility] [address] [place] [address] [employer] Linda Das CLIA [id number] Anion gap [Moles/Vol] 6.0 mmol/L Normal <=15.0 [facility] Comment on above: Performed By: #### 5 7021-8 #### [facility] [address] [place] [address] [employer] Linda Das CLIA [id number] AST [Catalytic activity/Vol] 27 U/L Normal 15-37 [facility] Comment on above: Performed By: #### 5 7021-8 #### [facility] [address] [place] [address] [employer] - Linda Das CLIA [id number] Bilirubin [Mass/Vol] mg/dL Normal 0.2-1.0 [facility] Comment on above: Performed By: #### 5 7021-8 #### [facility] [address] [place] [address] [employer] Linda Das CLIA [id number] Calcium [Mass/Vol] 9.7 mg/dL Normal 8.5-10.1 [facility] Comment on above: Performed By: #### 5 7021-8 #### [facility] [address] [place] [address] [employer] Linda Das CLIA [id number] Chloride [Moles/Vol] 100 mmol/L Normal 98-107 [facility] Comment on above: Performed By: #### 5 7021-8 #### [facility] [address] [place] [address] [employer] - Linda Das CLIA [id number] CO2 [Moles/Vol] 35 mmol/L High 21-32 [facility] Comment on above: Performed By: #### 5 7021-8 #### [facility] [address] [place] [address] [employer] HERRING [id number] Creatinine [Mass/Vol] 0.22 mg/dL Low 0.51-0.95 [facility] Comment on above: Performed By: #### 5 7021-8 #### [facility] [address] [place] [address] [employer] HERRING [id number] GFR/1.73 sq M.predicted MDRD (S/P/Bld) [Vol rate/Area] mL/min/{1.73_m2} Normal >=60 [facility] Comment on above: Performed By: #### 5 7021-8 #### [facility] [address] [facility]. [place] [address] [employer] HERRING [id number] Glucose [Mass/Vol] 103 mg/dL Normal 74-106 [facility] Comment on above: Performed By: #### 5 7021-8 #### [facility] [address] [facility] [place] [address] [employer] HERRING [id number] HGFR GLOMERULAR FILTRATIO N RATE INTERPRETATION~The eGFR [...] months, with or without kidney damage.~ Normal [facility] Comment on above: Performed By: #### 5 7021-8 #### [facility] [address] [place] [address] [employer] WEBBIA [id number] Potassium [Moles/Vol] 3.6 mmol/L Normal 3.5-5.1 [facility] Comment on above: Performed By: #### 5 7021-8 #### [facility] [address] [place] [address] [employer] WEBBIA [id number] Protein [Mass/Vol] 7.3 g/dL Normal 6.4-8.2 [facility] Comment on above: Performed By: #### 5 7021-8 #### [facility] [address] [place] [address] [employer] WEBBIA [id number] Sodium [Moles/Vol] 141 mmol/L Normal 136-145 [facility] Comment on above: Performed By: #### 5 7021-8 #### [facility] [address] [place] [address] [employer] WEBBIA [id number] Urea nitrogen [Mass/Vol] 16 mg/dL Normal 7-17 [facility] Comment on above: Performed By: #### 5 7021-8 #### [facility] [address] [place] [address] [employer] WEBBIA [id number] LACTATEon 07-15-2024 Lactate [Moles/Vol] 1.9 mmol/L Normal 0.4-2.0 [facility] Comment on above: Performed By: #### 5 7021-8 #### [facility] [address] [place] [address] [employer] WEBBIA [id number] Lactate [Moles/Vol] 2.4 mmol/L High 0.4-2.0 [facility] Comment on above: Performed By: #### 5 7021-8 #### [facility] [address] [place] [address] [employer] HERRING [id number] S. pyogenes Ag Ql (Throat)on 07-15-2024 GROUP A STREP Negative Normal [facility] Comment on above: Performed By: #### 1 8481-2 #### [facility] [address] [place] [address] [employer] HERRING [id number] GROUP CG STREP Negative Normal [facility] Comment on above: Performed By: #### 1 8481-2 #### [facility] [address] [place] [address] [employer] HERRING [id number] HRAPID TESTING PERFORMED USING MOLECULAR TESTING Normal [facility] Comment on above: Performed By: #### 1 8481-2 #### [facility] [address] [place] [address] [employer] HERRING [id number] URINALYSIS with reflex to CU LTUREon 07-15-2024 Amorphous sediment LM Ql (Urine sed) MODERATE Abnormal NONE SEEN [facility] Comment on above: Performed By: #### U AR #### [facility] [address] [place] [address] [employer] HERRING [id number] #### 630-4 #### [facility] [address] [place] [address] [employer] HERRING [id number] Performed for [facility] [address] [place] [address] Bacteria LM Ql (Urine sed) MODERATE Abnormal TRACE [facility] Comment on above: Performed By: #### U AR #### [facility] [address] [place] [address] [employer] HERRING [id number] #### 630-4 #### [facility] [address] [place] [address] [employer] HERRING [id number] Performed for [facility] [address] [place] [address] Bilirubin (U) [Mass/Vol] Negative Normal NEGATIVE [facility] Comment on above: Performed By: #### U AR #### [facility] [address] [place] [address] [employer] HERRING [id number] #### 630-4 #### [facility] [address] [place] [address] [employer] HERRING [id number] Performed for [facility] [address] [place] [address] Clarity (U) TURBID Abnormal CLEAR [facility] Comment on above: Performed By: #### U AR #### [facility] [address] [place] [address] [employer] HERRING [id number] #### 630-4 #### [facility] [address] [place] [address] [employer] HERRING [id number] Performed for [facility] [address] [place] [address] Color (U) YELLOW Normal YELLOW [facility] Comment on above: Performed By: #### U AR #### [facility] [address] [place] [address] [employer] HERRING [id number] #### 630-4 #### [facility] [address] [place] [address] [employer]ator - Linda HERRING [id number] Performed for [facility] [address] [place] [address] Glucose Test strip (U) [Mass/Vol] Negative Normal NEGATIVE [facility] Comment on above: Performed By: #### U AR #### [facility] [address] [place] [address] [employer]ator - Linda HERRING [id number] #### 630-4 #### [facility] [address] [place] [address] Software Integrator - Linda HERRING [id number] Performed for [facility] [address] [place] [address] HMICRO MICROSCOPIC Normal [facility] Comment on above: Performed By: #### U AR #### [facility] [address] [place] [address] [employer] Integrator - Linda HERRING [id number] #### 630-4 #### [facility] [address] [place] [address] Software Integrator - Linda HERRING [id number] Performed for [facility] [address] [place] [address] Hyaline casts (Urine sed) [#/Area] 0-8 Normal 0-8 [facility] Comment on above: Performed By: #### U AR #### [facility] [address] [place] [address] Software Integrator - Linda HERRING [id number] #### 630-4 #### [facility] [address] [place] [address] Software Integrator - Linda HERRING [id number] Performed for [facility] [address] [place] [address] Ketones (U) [Mass/Vol] Negative Normal NEGATIVE [facility] Comment on above: Performed By: #### U AR #### [facility] [address] [place] [address] Software Integrator - Linda HERRING [id number] #### 630-4 #### [facility] [address] [place] [address] Software Integrator - Linda HERRING [id number] Performed for [facility] [address] [place] [address] Leukocyte esterase Qn (U) 2+ Abnormal TRACE [facility] Comment on above: Performed By: #### U AR #### [facility] [address] [place] [address] Software Integrator - Linda HERRING [id number] #### 630-4 #### [facility] [address] [place] [address] Software Integrator - Linda HERRING [id number] Performed for [facility] [address] [place] [address] Mucus Ql (Urine sed) SMALL Abnormal TRACE [facility] Comment on above: Performed By: #### U AR #### [facility] [address] [place] [address] Software Integrator - Linda HERRING [id number] #### 630-4 #### [facility] [address] [place] [address] Software Integrator - Linda HERRING [id number] Performed for [facility] [address] [place] [address] Nitrite Ql (U) Positive Abnormal NEGATIVE [facility] Comment on above: Performed By: #### U AR #### [facility] [address] [place] [address] Software Integrator - Linda HERRING [id number] #### 630-4 #### [facility] [address] [place] [address] Software Integrator - Linda HERRING [id number] Performed for [facility] [address] [place] [address] pH (U) [pH] High 5.5-7.5 [facility] Comment on above: Performed By: #### U AR #### [facility] [address] [place] [address] Software Integrator - Linda HERRING [id number] #### 630-4 #### [facility] [address] [place] [address] Software Integrator - Linda HERRING [id number] Performed for [facility] [address] [place] [address] Protein (U) [Mass/Vol] 2+ Abnormal NEGATIVE [facility] Comment on above: Performed By: #### U AR #### [facility] [address] [place] [address] Software Integrator - Linda HERRING [id number] #### 630-4 #### [facility] [address] [place] [address] Software Integrator - Linda HERRING [id number] Performed for [facility] [address] [place], [place] [address] RBC (U) [#/Vol] Negative Normal NEGATIVE [facility] Comment on above: Performed By: #### U AR #### [facility] [address] [place] [address] Software Integrator - Linda HERRING [id number] #### 630-4 #### [facility] [address] [place] [address] Software Integrator - Linda HERRING [id number] Performed for [facility] [address] [place] [address] RBC LM.HPF (Urine sed) [#/Area] 0-4 Normal 0-4 [facility] Comment on above: Performed By: #### U AR #### [facility] [address] [place] [address] Software Integrator - Linda HERRING [id number] #### 630-4 #### [facility] [address] [place] [address] Software Integrator - Linda HERRING [id number] Performed for [facility] [address] [place] [address] Specific gravity (U) [Rel density] 1.028 Normal 1.010-1.035 [facility] Comment on above: Performed By: #### U AR #### [facility] [address] [place] [address] Software Integrator - Linda HERRING [id number] #### 630-4 #### [facility] [address] [place] [address] Software Integrator - Linda HERRING [id number] Performed for [facility] [address] [place] [address] SQUAMOUS EPITHELIALS 6-10 Abnormal 0-5 [facility] Comment on above: Performed By: #### U AR #### [facility] [address] [place] [address] Software Integrator - Linda HERRING [id number] #### 630-4 #### [facility] [address] [place] [address] Software Integrator - Linda HERRING [id number] Performed for [facility] [address] [place] [address] Urobilinogen Qn (U) 1.0 {Sari'U}/dL Normal <=1.0 [facility] Comment on above: Performed By: #### U AR #### [facility] [address] [place] [address] Software Integrator - Linda HERRING [id number] #### 630-4 #### [place] [address] [place] [address] Software Integrator - Linda HERRING [id number] Performed for [facility] [address] [place] [address] WBC LM.HPF (Urine sed) [#/Area] 20-50 Abnormal 0-5 [facility] Comment on above: Performed By: #### U AR #### [place] [address] [place] [address] Software Integrator - Linda HERRING [id number] #### 630-4 #### [place] [address] [place] [address] Software Integrator - Linda HERRING [id number] Performed for [facility] [address] [place] [address] VIRAL RESPIRATORY QUAD PLEXo n 07-15-2024 CORONAVIRUS 19 Not detected Normal NOT DETECTED [facility] Comment on above: Performed By: #### 5 7021-8 #### [facility] [address] [place] [address] Software Integrator - Linda HERRING [id number] Influenza A Not detected Normal NOT DETECTED [facility] Comment on above: Performed By: #### 5 7021-8 #### [place] [address] [place] [address] Software Integrator - Linda Dsa Bill.[employer] [id number] Influenza B Not detected Normal NOT DETECTED [facility] Comment on above: Performed By: #### 5 7021-8 #### [place] [address] [place] [address] Software Integrator - Linda Das Bill.ForwardCORBY [id number] RSV Ag Ql (Nose) Not detected Normal NOT DETECTED [facility] Comment on above: Performed By: #### 5 7021-8 #### [address] [place] [address] Software Integrator - LindaAcuteCare Health SystemCORBY [id number] QUE 1 DRUGon 07-12-2024 Min Inhibitory Conc (1 Drug) Final report Normal [facility] Comment on above: Performed By: #### U AR #### [address] [place] [address] Software Integrator - Linda Das CORBY [id number] #### 630-4 #### [address] [place] [address] Software Integrator - LindaAcuteCare Health SystemCORBY [id number] Performed for [place] [address] Result 1 Comment Normal [facility] Comment on above: Result Comment: Pseu domonas aeruginosa Identification performed by account, not confirmed by this laboratory. Cefepime = >16 ug/mL = Resistant Performed By: #### U AR #### [address] [place] [address] Software Integrator - Linda Das CLCORBY [id number] #### 630-4 #### [place] [address] [place] [address] Software Integrator - [facility] NEVAEH [id number] Performed for [place] [address] CULTURE SPUTUMon 07-09-2024 Bacteria identified Respiratory culture Nom (Sput) Pseudomonas aeruginosa ORGANISM: Isolate 1 ANTIBIOTIC INTERP QUE Piperacillin/Tazobactam S <=4 Imipenem R >=16 Meropenem I 4 Amikacin S 4 Gentamicin S 4 Tobramycin S <=1 Ciprofloxacin R >=4 Levofloxacin R 4 Normal [facility] Comment on above: Performed By: #### G S, 624-7 #### [address] [place] [address] Software Integrator - Linda HERRING [id number] Performed for [address] [place] [address] #### SPUTUME #### [address] [place] [address] Software Integrator - Linda Dasalison HERRING [id number] CULTURE URINEon 07-09-2024 Bacteria identified Cx Nom (U) Proteus mirabilis ORGANISM: Isolate 1 ANTIBIOTIC INTERP QUE Ampicillin S <=2 S <=2 Piperacillin/Tazobactam S <=4 Cefazolin S <=4 S <=1 S <=1 Ceftriaxone S <=0.25 Cefepime S <=0.12 Meropenem S <=0.25 Gentamicin S <=1 Tobramycin S <=1 Ciprofloxacin S <=0.25 Levofloxacin S <=0.12 Tetracycline R >=16 Nitrofurantoin R 128 Trimethoprim/Sulfamethox azole S <=20 Normal [facility] Comment on above: Performed By: #### 1 8481-2 #### [address] [place] [address] Software Integrator - Linda Dasalison HERRING [id number] CBC W Auto Differential pane l (Bld)on 07-06-2024 Basophils (Bld) [#/Vol] 0.13 10*3/uL Normal <=0.70 [facility] Comment on above: Performed By: #### U AR #### [address] [place] [address] Software Integrator - Linda HERRING [id number] #### 630-4 #### [address] [place] [address] Software Integrator - Linda HERRING [id number] Performed for [place] [address] Basophils/100 WBC (Bld) 1.2 % Normal <=2.0 [facility] Comment on above: Performed By: #### U AR #### [facility] [address] [place] [address] Software Integrator - Linda HERRING [id number] #### 630-4 #### [facility] [address] [place] [address] Software Integrator - Linda WEBBIA [id number] Performed for [facility] [address] [place] [address] Eosinophils (Bld) [#/Vol] 0.27 10*3/uL Normal <=0.70 [facility] Comment on above: Performed By: #### U AR #### [facility] [address] [place] [address] Software Integrator - Linda WEBBIA [id number] #### 630-4 #### [facility] [address] [place] [address] Software Integrator - Linda WEBBIA [id number] Performed for [facility] [address] [place] [address] Eosinophils/100 WBC (Bld) 2.5 % Normal <=10.0 [facility] Comment on above: Performed By: #### U AR #### [facility] [address] [place] [address] Software Integrator - Linda WEBBIA [id number] #### 630-4 #### [facility] [address] [place] [address] Software Integrator - Linda WEBBIA [id number] Performed for [facility] [address] [place] [address] Erythrocyte distribution width (RBC) [Entitic vol] 49.3 fL High 36.4-46.3 [facility] Comment on above: Performed By: #### U AR #### [facility] [address] [place] [address] Software Integrator - Linda WEBBIA [id number] #### 630-4 #### [facility] [address] [place] [address] Software Integrator - Linda HERRING [id number] Performed for [facility] [address] [place] [address] Hematocrit (Bld) [Volume fraction] 34.1 % Low 37.0-47.0 [facility] Comment on above: Performed By: #### U AR #### [facility] [address] [place] [address] Software Integrator - Linda WEBBIA [id number] #### 630-4 #### [facility] [address] [place] [address] Software Integrator - Linda WEBBIA [id number] Performed for [facility] [address] [place] [address] Hemoglobin (Bld) [Mass/Vol] 10.8 g/dL Low 12.0-16.0 [facility] Comment on above: Performed By: #### U AR #### [facility] [address] [place] [address] Software Integrator - Linda WEBBIA [id number] #### 630-4 #### [facility] [address] [place] [address] Software Integrator - Linda WEBBIA [id number] Performed for [facility] [address] [place] [address] Immature granulocytes (Bld) [#/Vol] 0.11 10*3/uL High <=0.10 [facility] Comment on above: Performed By: #### U AR #### [facility] [address] [place] [address] Software Integrator - Linda WEBBIA [id number] #### 630-4 #### [facility] [address] [place] [address] Software Integrator - Linda HERRING [id number] Performed for [facility] [address] [place] [address] Immature granulocytes/100 WBC (Bld) 1.00 % Normal <=1.50 [facility] Comment on above: Performed By: #### U AR #### [facility] [address] [place] [address] Software Integrator - Linda HERRING [id number] #### 630-4 #### [facility] [address] [place] [address] Software Integrator - Linda HERRING [id number] Performed for [facility] [address] [place] [address] Lymphocytes (Bld) [#/Vol] 2.38 10*3/uL Normal 1.20-3.40 [facility] Comment on above: Performed By: #### U AR #### [facility] [address] [place] [address] Software Integrator - Linda HERRING [id number] #### 630-4 #### [facility] [address] [place] [address] Software Integrator - Linda HERRING [id number] Performed for [facility] [address] [place] [address] Lymphocytes/100 WBC (Bld) 22.3 % Normal 20.0-40.0 [facility] Comment on above: Performed By: #### U AR #### [facility] [address] [place] [address] Software Integrator - Linda HERRING [id number] #### 630-4 #### [facility] [address] [place] [address] Software Integrator - Linda HERRING [id number] Performed for [facility] [address] [place] [address] MCH (RBC) [Entitic mass] 30.1 pg Normal 27.0-31.0 [facility] Comment on above: Performed By: #### U AR #### [facility] [address] [place] [address] Software Integrator - Linda HERRING [id number] #### 630-4 #### [facility] [address] [place] [address] Software Integrator - Linda HERRING [id number] Performed for [facility] [address] [place], [place] [address] MCHC (RBC) [Mass/Vol] 31.7 g/dL Low 32.0-36.0 [facility] Comment on above: Performed By: #### U AR #### [facility] [address] [place] [address] Software Integrator - Linda HERRING [id number] #### 630-4 #### [facility] [address] [place] [address] Software Integrator - Linda HERRING [id number] Performed for [facility] [address] [place] [address] MCV (RBC) [Entitic vol] 95.0 fL Normal 80.0-100.0 [facility] Comment on above: Performed By: #### U AR #### [facility] [address] [place] [address] Software Integrator - Linda HERRING [id number] #### 630-4 #### [facility] [address] [place] [address] Software Integrator - Linda HERRING [id number] Performed for [facility] [address] [place] [address] Monocytes (Bld) [#/Vol] 1.12 10*3/uL High 0.10-0.60 [facility] Comment on above: Performed By: #### U AR #### [facility] [address] [place] [address] Software Integrator - Linda WEBBIA [id number] #### 630-4 #### [facility] [address] [place] [address] Software Integrator - Linda WEBBIA [id number] Performed for [facility] [address] [place] [address] Monocytes/100 WBC (Bld) 10.5 % High <=8.0 [facility] Comment on above: Performed By: #### U AR #### [facility] [address] [place] [address] Software Integrator - Linda WEBBIA [id number] #### 630-4 #### [facility] [address] [place] [address] Software Integrator - Linda WEBBIA [id number] Performed for [facility] [address] [place], [place] [address] Neutrophils (Bld) [#/Vol] 6.64 10*3/uL High 1.40-6.50 [facility] Comment on above: Performed By: #### U AR #### [facility] [address] [place] [address] Software Integrator - Linda WEBBIA [id number] #### 630-4 #### [facility] [address] [place] [address] Software Integrator - Linda WEBBIA [id number] Performed for [facility] [address] [place] [address] Neutrophils/100 WBC (Bld) 62.5 % Normal 50.0-70.0 [facility] Comment on above: Performed By: #### U AR #### [facility] [address] [place] [address] Software Integrator - Linda WEBBIA [id number] #### 630-4 #### [facility] [address] [place] [address] Software Integrator - Linda WEBBIA [id number] Performed for [facility] [address] [place], [place] [address] Nucleated RBC (Bld) [#/Vol] 0.00 10*3/uL Normal <=0.10 [facility] Comment on above: Performed By: #### U AR #### [facility] [address] [place] [address] Software Integrator - Linda WEBBIA [id number] #### 630-4 #### [facility] [address] [place] [address] Software Integrator - Linda WEBBIA [id number] Performed for [facility] [address] [place], [place] [address] Platelet mean volume (Bld) [Entitic vol] 10.1 fL Normal 9.0-13.0 [facility] Comment on above: Performed By: #### U AR #### [facility] [address] [place] [address] Software Integrator - Linda HERRING [id number] #### 630-4 #### [facility] [address] [place] [address] Software Integrator - Linda HERRING [id number] Performed for [facility] [address] [place], [place] [address] Platelets (Bld) [#/Vol] 308 10*3/uL Normal 130-400 [facility] Comment on above: Performed By: #### U AR #### [facility] [address] [place] [address] Software Integrator - Linda HERRING [id number] #### 630-4 #### [facility] [address] [place] [address] Software Integrator - Linda HERRING [id number] Performed for [facility] [address] [place] [address] RBC (Bld) [#/Vol] 3.59 10*6/uL Low 4.00-6.30 [facility] Comment on above: Performed By: #### U AR #### [facility] [address] [place] [address] Software Integrator - Linda HERRING [id number] #### 630-4 #### [facility] [address] [place] [address] Software Integrator - Linda HERRING [id number] Performed for [facility] [address] [place] [address] WBC (Bld) [#/Vol] 10.65 10*3/uL Normal 4.80-10.80 [facility] Comment on above: Performed By: #### U AR #### [facility] [address] [place] [address] Software Integrator - Linda HERRING [id number] #### 630-4 #### [facility] [address] [place], [place] [address] Software Integrator - Linda HERRING [id number] Performed for [facility] [address] [place], [place] [address] CHEST AP PORTABLEon 07-06-20 24 CHEST AP PORTABLE EXAMINATION: CHEST A P [...] No dense focal consolidation is seen. Normal [facility] CULTURE ROUTINEon 07-06-2024 Bacteria identified Aer cx [...] Ciprofloxacin R >=4 Levofloxacin R 4 Normal [facility] Comment on above: Performed By: #### G S, 624-7 #### [facility] [address] [place] [address] Software Integrator - Linda HERRING [id number] Performed for [facility] [address] [place] [address] #### SPUTUME #### [facility] [address] [place] [address] Software Integrator - Linda HERRING [id number] CULTURE SPUTUM with GRAM STA INon 07-06-2024 Reason for unsatisfactory specimen not related to sample quality of dried blood spot Nom (DBS) SATISFACTORY Normal SATISFACTORY [facility] Comment on above: Result Comment: The presence of normal upper respiratory tract fang can be present in sputum specimens and may not necessarily represent a pathologic process. Clinical correlation is recommended. Performed By: #### G S, 624-7 #### [facility] [address] [place] [address] Software Integrator - Linda HERRING [id number] Performed for [facility] [address] [place] [address] #### SPUTUME #### [facility] [address] [place] [address] Software Integrator - Linda HERRING [id number] Comprehensive metabolic 2000 panelon 07-06-2024 Albumin [Mass/Vol] 3.3 g/dL Low 3.4-5.0 [facility] Comment on above: Performed By: #### U AR #### [facility] [address] [place] [address] Software Integrator - Linda HERRING [id number] #### 630-4 #### [facility] [address] [place] [address] Software Integrator - Linda HERRING [id number] Performed for [facility] [address] [place] [address] ALP [Catalytic activity/Vol] 161 U/L High 50-136 [facility] Comment on above: Performed By: #### U AR #### [facility] [address] [place] [address] Software Integrator - Linda HERRING [id number] #### 630-4 #### [facility] [address] [place] [address] Software Integrator - Linda HERRING [id number] Performed for [facility] [address] [place] [address] ALT [Catalytic activity/Vol] 39 U/L Normal 14-59 [facility] Comment on above: Performed By: #### U AR #### [facility] [address] [place] [address] Software Integrator - Linda HERRING [id number] #### 630-4 #### [facility] [address] [place] [address] Software Integrator - Linda HERRING [id number] Performed for [facility] [address] [address] [place] [address] Anion gap [Moles/Vol] 6.0 mmol/L Normal <=15.0 [facility] Comment on above: Performed By: #### U AR #### [facility] [address] [place] [address] [employer] - Linda HERRING [id number] #### 630-4 #### [facility] [address] [place] [address] [employer] - Linda HERRING [id number] Performed for [facility] [address] [place] [address] AST [Catalytic activity/Vol] 33 U/L Normal 15-37 [facility] Comment on above: Performed By: #### U AR #### [facility] [address] [place] [address] [employer] - Linda HERRING [id number] #### 630-4 #### [facility] [address] [place] [address] [employer] - Linda HERRING [id number] Performed for [facility] [address] [place] [address] Bilirubin [Mass/Vol] 0.2 mg/dL Normal 0.2-1.0 [facility] Comment on above: Performed By: #### U AR #### [facility] [address] [place] [address] [employer] - Linda HERRING [id number] #### 630-4 #### [facility] [address] [place] [address] [employer] - Linda HERRING [id number] Performed for [facility] [address] [place] [address] Calcium [Mass/Vol] 9.5 mg/dL Normal 8.5-10.1 [facility] Comment on above: Performed By: #### U AR #### [facility] [address] [place] [address] [employer] - Linda HERRING [id number] #### 630-4 #### [facility] [address] [place] [address] [employer] - Linda HERRING [id number] Performed for [facility] [address] [place] [address] Chloride [Moles/Vol] 98 mmol/L Normal 98-107 [facility] Comment on above: Performed By: #### U AR #### [facility] [address] [place] [address] [employer] - Linda HERRING [id number] #### 630-4 #### [facility] [address] [place] [address] [employer] - Linda HERRING [id number] Performed for [facility] [address] [place] [address] CO2 [Moles/Vol] 38 mmol/L High 21-32 [facility] Comment on above: Performed By: #### U AR #### [facility] [address] [place] [address] [employer] - Linda HERRING [id number] #### 630-4 #### [facility] [address] [place] [address] [employer] - Linda HERRING [id number] Performed for [facility] [address] [place] [address] Creatinine [Mass/Vol] 0.22 mg/dL Low 0.51-0.95 [facility] Comment on above: Performed By: #### U AR #### [facility] [address] [place] [address] [employer] - Linda HERRING [id number] #### 630-4 #### [facility] [address] [place] [address] [employer]ator - Linda HERRING [id number] Performed for [facility] [address] [place] [address] GFR/1.73 sq M.predicted MDRD (S/P/Bld) [Vol rate/Area] mL/min/{1.73_m2} Normal >=60 [facility] Comment on above: Performed By: #### U AR #### [facility] [address] [place] [address] [employer] - Linda HERRING [id number] #### 630-4 #### [facility] [address] [place] [address] [employer]ator - Linda HERRING [id number] Performed for [facility] [address] [place] [address] Glucose [Mass/Vol] 120 mg/dL High 74-106 [facility] Comment on above: Performed By: #### U AR #### [facility] [address] [place] [address] [employer] - Linda HERRING [id number] #### 630-4 #### [facility] [address] [place] [address] Software Integrator - Linda HERRING [id number] Performed for [facility] [address] [place] [address] HGFR GLOMERULAR FILTRATIO N RATE INTERPRETATION~The eGFR [...] months, with or without kidney damage.~ Normal [facility] Comment on above: Performed By: #### U AR #### [place] [address] [place] [address] [employer] - Linda HERRING [id number] #### 630-4 #### [place] [address] [place] [address] Software Integrator - Linda Dasalison HERRING [id number] Performed for [place] [address] [place] [address] Potassium [Moles/Vol] 3.4 mmol/L Low 3.5-5.1 [facility] Comment on above: Performed By: #### U AR #### [place] [address] [place] [address] [employer] - Linda HERRING [id number] #### 630-4 #### [place] [address] [place] [address] Software Integrator - Linda HERRING [id number] Performed for [place] [address] [place] [address] Protein [Mass/Vol] 7.4 g/dL Normal 6.4-8.2 [facility] Comment on above: Performed By: #### U AR #### [place] [address] [place] [address] [employer]ator - Linda WEBBIA [id number] #### 630-4 #### [facility] [address] [place] [address] [employer] Integrator - Linda HERRING [id number] Performed for [facility] [address] [place] [address] Sodium [Moles/Vol] 142 mmol/L Normal 136-145 [facility] Comment on above: Performed By: #### U AR #### [facility] [address] [place] [address] [employer]ator - Linda HERRING [id number] #### 630-4 #### [facility] [address] [place] [address] Software [employer]ator - Linda HERRING [id number] Performed for [facility] [address] [place] [address] Urea nitrogen [Mass/Vol] 20 mg/dL High -17 [facility] Comment on above: Performed By: #### U AR #### [facility] [address] [place] [address] [employer]ator - Linda HERRING [id number] #### 630-4 #### [facility] [address] [place] [address] Software Integrator - Linda HERRING [id number] Performed for [facility] [address] [place] [address] GRAM STAINon 07-06-2024 Epithelial cells Gram stain Ql (Unsp spec) RARE Abnormal NONE SEEN [facility] Comment on above: Performed By: #### G S, 624-7 #### [facility] [address] [place] [address] [employer]ator - Linda HERRING [id number] Performed for [facility] [address] [place] [address] #### SPUTUME #### [facility] [address] [place] [address] [employer]ator - Linda HERRING [id number] HGSGP Positive Normal [facility] Comment on above: Performed By: #### Mariana Urban, 624-7 #### [facility] [address] [place] [address] [employer]ator - Linda HERRING [id number] Performed for [facility] [address] [place] [address] #### SPUTUME #### [facility] [address] [place] [address] [employer]ator - Linda HERRING [id number] Microscopic observation Gram stain Nom (Unsp spec) Normal NONE SEEN [facility] Comment on above: Result Comment: MODE RATE Performed By: #### G Wilmar, 624-7 #### [facility] [address] [place] [address] [employer]ator - Linda HERRING [id number] Performed for [facility] [address] [place] [address] #### SPUTUME #### [facility] [address] [place] [address] [employer]ator - Linda HERRING [id number] Yeast Gram stain Ql (Unsp spec) Normal NONE SEEN [facility] Comment on above: Performed By: #### Mariana Urban, 624-7 #### [facility] [address] [place] [address] Software Integrator - Linda HERRING [id number] Performed for [facility] [address] [place] [address] #### SPUTUME #### [facility] [address] [place] [address] Software Integrator - Linda HERRING [id number] URINALYSIS with reflex to CU LTUREon 07-06-2024 Bacteria LM Ql (Urine sed) LARGE Abnormal TRACE [facility] Comment on above: Performed By: #### 1 8481-2 #### [facility] [address] [place] [address] [employer]ator - Linda HERRING [id number] Bilirubin (U) [Mass/Vol] Negative Normal NEGATIVE [facility] Comment on above: Performed By: #### 1 8481-2 #### [facility] [address] [place] [address] [employer]ator - Linda HERRING [id number] Clarity (U) TURBID Abnormal CLEAR [facility] Comment on above: Performed By: #### 1 8481-2 #### [facility] [address] [place] [address] [employer]ator - Linda HERRING [id number] Color (U) YELLOW Normal YELLOW [facility] Comment on above: Performed By: #### 1 8481-2 #### [facility] [address] [place] [address] [employer] Integrator - Linda HERRING [id number] Glucose Test strip (U) [Mass/Vol] Negative Normal NEGATIVE [facility] Comment on above: Performed By: #### 1 8481-2 #### [facility] [address] [place] [address] [employer]ator - Linda HERRING [id number] HMICRO MICROSCOPIC Normal [facility] Comment on above: Performed By: #### 1 8481-2 #### [facility] [address] [place] [address] [employer] Integrator - Linda HERRING [id number] Hyaline casts (Urine sed) [#/Area] 50-100 Abnormal 0-8 [facility] Comment on above: Performed By: #### 1 8481-2 #### [facility] [address] [place] [address] Software Integrator - Linda WEBBIA [id number] Ketones (U) [Mass/Vol] Negative Normal NEGATIVE [facility] Comment on above: Performed By: #### 1 8481-2 #### [facility] [address] [place] [address] Software Integrator - Linda HERRING [id number] Leukocyte esterase Qn (U) 3+ Abnormal TRACE [facility] Comment on above: Performed By: #### 1 8481-2 #### [facility] [address] [place] [address] Software Integrator - Linda HERRING [id number] Nitrite Ql (U) Negative Normal NEGATIVE [facility] Comment on above: Performed By: #### 1 8481-2 #### [facility] [address] [place] [address] [employer] Integrator - Linda HERRING [id number] pH (U) [pH] High 5.5-7.5 [facility] Comment on above: Performed By: #### 1 8481-2 #### [facility] [address] [place] [address] Software Integrator - Linda HERRING [id number] Protein (U) [Mass/Vol] 3+ Abnormal NEGATIVE [facility] Comment on above: Performed By: #### 1 8481-2 #### [facility] [address] [facility] [place] [address] Software Integrator - Linda HERRING [id number] RBC (U) [#/Vol] Negative Normal NEGATIVE [facility] Comment on above: Performed By: #### 1 8481-2 #### [facility] [address] [place] [address] [employer] Integrator - Linda HERRING [id number] RBC LM.HPF (Urine sed) [#/Area] 4-10 Abnormal 0-4 [facility] Comment on above: Performed By: #### 1 8481-2 #### [facility] [address] [facility] [place] [address] Software Integrator - Linda HERRING [id number] Specific gravity (U) [Rel density] 1.035 Normal 1.010-1.035 [facility] Comment on above: Performed By: #### 1 8481-2 #### [facility] [address] [facility] [place] [address] [employer]ator - Linda HERRING [id number] SQUAMOUS EPITHELIALS 0-5 Normal 0-5 [facility] Comment on above: Performed By: #### 1 8481-2 #### [facility] [address] [place] [address] Software Integrator - Linda HERRING [id number] Urobilinogen Qn (U) 1.0 {Sari'U}/dL Normal <=1.0 [facility] Comment on above: Performed By: #### 1 8481-2 #### [facility] [address] [place] [address] [employer] Integrator - Linda HERRING [id number] WBC LM.HPF (Urine sed) [#/Area] 100-900 Abnormal 0-5 [facility] Comment on above: Performed By: #### 1 8481-2 #### [facility] [address] [place] [address] [employer]ator - Linda HERRING [id number] CBC WITH AUTO DIFFERENTIALon 05-16-2024 AUTO NRBC 0.0 % Normal [facility] Comment on above: Performed By: #### L [id number] ####[facility] [address] [place] [address] Huber Prado M.D. [id number] AUTO NRBC ABS COUNT 0.00 K/mcL Normal 0.00-0.00 [facility] Comment on above: Performed By: #### L [id number] ####[facility] [address] [place], [place] [id number] Huber Prado M.D. [id number] BASOPHILS ABSOLUTE COUNT 0.12 K/mcL Normal 0.00-0.30 [facility] Comment on above: Performed By: #### L [id number] ####[facility] [address] [place] [address] Huber Prado M.D. [id number] Basophils/100 WBC (Bld) 1.0 % Normal [facility] Comment on above: Performed By: #### L [id number] ####[facility] [address] [place] [address] Huber Prado M.D. [id number] Eosinophils (Bld) [#/Vol] 0.49 10*3/uL Normal 0.00-0.50 [facility] Comment on above: Performed By: #### L [id number] ####[facility] [address] [place] [address] Huber Prado M.D. [id number] Eosinophils/100 WBC (Bld) 4.1 % Normal [facility] Comment on above: Performed By: #### Tasha [id number] ####[facility] [address] [place] [address] Huber Prado M.D. [id number] Erythrocyte distribution width (RBC) [Ratio] 14.5 % Normal 11.6-14.8 [facility] Comment on above: Performed By: #### Tasha [id number] ####[facility] [address] [place] [address] Huber Prado M.D. [id number] Hematocrit (Bld) [Volume fraction] 26.1 % Low 36.0-46.0 [facility] Comment on above: Performed By: #### Tasha [id number] ####[facility] [address] [place] [address] Huber Prado M.D. [id number] Hemoglobin (Bld) [Mass/Vol] 8.5 g/dL Low 12.0-16.0 [facility] Comment on above: Performed By: #### L [id number] ####[facility] [address] [place] [address] Huber Prado M.D. [id number] IG ABSOLUTE 0.12 K/mcL Normal 0.00-0.30 [facility] Comment on above: Performed By: #### L [id number] ####[facility] [address] [place] [address] Huber Prado M.D. [id number] IG PERCENT 1.00 % Normal [facility] Comment on above: Result Comment: The IG parameter is the percentage of metamyelocytes, myelocytes and promyelocytes. An immature granulocyte count (IG) of 1% or more suggests the possibility of infection, an IG count of 3% is very likely related to an infection. Performed By: #### L [id number] ####[facility] [address] [place] [address] Huber Prado M.D. [id number] Lymphocytes (Bld) [#/Vol] 2.09 10*3/uL Normal 0.90-4.00 [facility] Comment on above: Performed By: #### L [id number] ####[facility] [address] [place] [address] Huber Prado M.D. [id number] Lymphocytes/100 WBC (Bld) 17.6 % Normal [facility] Comment on above: Performed By: #### L [id number] ####[facility] [address] [place] [address] Huber Prado M.D. [id number] MCH (RBC) [Entitic mass] 30.8 pg Normal 26.0-34.0 [facility] Comment on above: Performed By: #### L [id number] ####[facility] [address] [place] [address] Huber Prado M.D. [id number] MCV (RBC) [Entitic vol] 94.6 fL Normal 80.0-100.0 [facility] Comment on above: Performed By: #### L [id number] ####[facility] [address] [place] [address] Huber Prado M.D. [id number] MEAN CORPUSCULAR HEMOGLOBIN CONC 32.6 g/dL Normal 31.0-37.0 [facility] Comment on above: Performed By: #### L [id number] ####[facility] [address] [place] [address] Huber Prado M.D. [id number] Monocytes (Bld) [#/Vol] 0.79 10*3/uL Normal 0.30-0.90 [facility] Comment on above: Performed By: #### L [id number] ####[facility] [address] [place] [address] Huber Prado M.D. [id number] Monocytes/100 WBC (Bld) 6.6 % Normal [facility] Comment on above: Performed By: #### L [id number] ####[facility] [address] [place] [address] Huber Prado M.D. [id number] NEUTROPHILS ABSOLUTE COUNT 8.28 K/mcL High 1.70-7.00 [facility] Comment on above: Performed By: #### Tasha [id number] ####[facility] [address] [place] [address] Huber Prado M.D. [id number] Neutrophils/100 WBC (Bld) 69.7 % Normal [facility] Comment on above: Performed By: #### Tasha [id number] ####[facility] [address] [place] [address] Huber Prado M.D. [id number] Platelet mean volume (Bld) [Entitic vol] 11.3 fL Normal 9.4-12.4 [facility] Comment on above: Performed By: #### L [id number] ####[facility] [address] [place] [address] Huber Prado M.D. [id number] Platelets (Bld) [#/Vol] 189 10*3/uL Normal 150-400 [facility] Comment on above: Performed By: #### Tasha [id number] ####[facility] [address] [place] [address] Huber Prado M.D. [id number] RBC (Bld) [#/Vol] 2.76 10*6/uL Low 4.00-5.20 [facility] Comment on above: Performed By: #### L [id number] ####[facility] [address] [place] [address] Huber Prado M.D. [id number] WBC (Bld) [#/Vol] 11.89 10*3/uL High 4.50-11.00 [facility] Comment on above: Performed By: #### L [id number] ####[facility] [address] [place] [address] Huber Prado M.D. [id number] COMPREHENSIVE METABOLIC PANE [facility] 05-16-2024 Albumin [Mass/Vol] 3.8 g/dL Normal 3.2-5.2 [facility] Comment on above: Order Comment: [facility] has implemented the eGFR calculation approach that does not have a coefficient for race that conforms to the NKF-ASN Task Force Recommendations. Performed By: #### 4 [id number] ####[facility] [address] [place] [address] Huber Prado M.D. [id number] ALP [Catalytic activity/Vol] 156 U/L High 40-140 [facility] Comment on above: Order Comment: [facility] has implemented the eGFR calculation approach that does not have a coefficient for race that conforms to the NKF-ASN Task Force Recommendations. Performed By: #### 4 6126 ####[facility] [address] [place] [address] Huber Prado M.D. [id number] ALT [Catalytic activity/Vol] 20 U/L Normal 0-35 U/L [facility] Comment on above: Order Comment: [facility] has implemented the eGFR calculation approach that does not have a coefficient for race that conforms to the NKF-ASN Task Force Recommendations. Performed By: #### 4 6126 ####[facility] [address] [place] [address] Huber Prado M.D. [id number] Anion gap [Moles/Vol] 18 mmol/L Normal 10-20 [facility] Comment on above: Order Comment: [facility] has implemented the eGFR calculation approach that does not have a coefficient for race that conforms to the NKF-ASN Task Force Recommendations. Performed By: #### 4 6126 ####[facility] [address] [place], [place] [id number] Huber Prado M.D. [id number] AST [Catalytic activity/Vol] 18 U/L Normal 0-35 U/L [facility] Comment on above: Order Comment: [facility] has implemented the eGFR calculation approach that does not have a coefficient for race that conforms to the NKF-ASN Task Force Recommendations. Performed By: #### 4 6126 ####[facility] [address] [place] [address] Huber Prado M.D. [id number] BILIRUBIN TOTAL < Normal 0.0-1.3 [facility] Comment on above: Order Comment: [facility] has implemented the eGFR calculation approach that does not have a coefficient for race that conforms to the NKF-ASN Task Force Recommendations. Performed By: #### 4 6126 ####[facility] [address] [place] [address] Huber Prado M.D. [id number] Calcium [Mass/Vol] 9.5 mg/dL Normal 8.4-10.2 [facility] Comment on above: Order Comment: [facility] has implemented the eGFR calculation approach that does not have a coefficient for race that conforms to the NKF-ASN Task Force Recommendations. Performed By: #### 4 6126 ####[facility] [address] [place] [address] Huber Prado M.D. [id number] Chloride [Moles/Vol] 105 mmol/L Normal 98-108 [facility] Comment on above: Order Comment: [facility] has implemented the eGFR calculation approach that does not have a coefficient for race that conforms to the NKF-ASN Task Force Recommendations. Performed By: #### 4 6126 ####[facility] [address] [place] [address] Huber Prado M.D. [id number] Creatinine [Mass/Vol] 0.72 mg/dL Normal 0.40-1.10 [facility] Comment on above: Order Comment: [facility] has implemented the eGFR calculation approach that does not have a coefficient for race that conforms to the NKF-ASN Task Force Recommendations. Performed By: #### 4 6126 ####[facility] [address] [place], [place] [id number] Huber Prado M.D. [id number] EGFR 113 mL/min/1.73 m2 Normal >=60 [facility] Comment on above: Order Comment: [facility] has implemented the eGFR calculation approach that does not have a coefficient for race that conforms to the NKF-ASN Task Force Recommendations. Result Comment: Neema mated GFR was calculated using the 2020 CKD-EPI creatinine equation. Performed By: #### 4 6126 ####[facility] LAB [address] [place] [address] 25869 Huber Prado M.D. [id number] Glucose [Mass/Vol] 130 mg/dL High 65-99 [facility] Comment on above: Order Comment: [facility] Laboratory Services has implemented the eGFR calculation approach that does not have a coefficient for race that conforms to the NKF-ASN Task Force Recommendations. Performed By: #### 4 [id number] ####[facility] [address] [place] [address] 13017 Huber Prado M.D. [id number] HCO3 (Bld) [Moles/Vol] 22 mmol/L Normal 21-32 [facility] Comment on above: Order Comment: [facility] Laboratory [facility] has implemented the eGFR calculation approach that does not have a coefficient for race that conforms to the NKF-ASN Task Force Recommendations. Performed By: #### 4 [id number] ####[facility] [address] [place], [place] [id number] Huber Prado M.D. [id number] Potassium [Moles/Vol] 4.4 mmol/L Normal 3.5-5.1 [facility] Comment on above: Order Comment: [facility] Laboratory [facility] has implemented the eGFR calculation approach that does not have a coefficient for race that conforms to the NKF-ASN Task Force Recommendations. Performed By: #### 4 [id number] ####[facility] [address] [place], [place] [id number] Huber Prado M.D. [id number] Protein [Mass/Vol] 7.3 g/dL Normal 6.0-8.0 [facility] Comment on above: Order Comment: [facility] Laboratory [facility] has implemented the eGFR calculation approach that does not have a coefficient for race that conforms to the NKF-ASN Task Force Recommendations. Performed By: #### 4 [id number] ####[facility] [address] [place], [place] [id number] Huber Prado M.D. [id number] Sodium [Moles/Vol] 141 mmol/L Normal 135-145 [facility] Comment on above: Order Comment: [facility] Laboratory [facility] has implemented the eGFR calculation approach that does not have a coefficient for race that conforms to the NKF-ASN Task Force Recommendations. Performed By: #### 4 [id number] ####[facility] [address] [place] [address] 71259 Huber Prado M.D. [id number] Urea nitrogen [Mass/Vol] 25 mg/dL Normal 8-25 [facility] Comment on above: Order Comment: [facility] Laboratory [facility] has implemented the eGFR calculation approach that does not have a coefficient for race that conforms to the NKF-ASN Task Force Recommendations. Performed By: #### 4 [id number] ####[facility] [address] [place] [address] 13985 Huber Prado M.D. [id number] Urea nitrogen/Creatinine [Mass ratio] 34.7 mg/mg High 10.0-20.0 [facility] Comment on above: Order Comment: [facility] Laboratory Services has implemented the eGFR calculation approach that does not have a coefficient for race that conforms to the NKF-ASN Task Force Recommendations. Performed By: #### 4 [id number] ####[facility] [address] [place] [address] 46497 Huber Prado M.D. [id number] Disch [place] 05-16-2024 Disch [place] Normal [facility] PHOSPHORUSon 05-16-2024 Phosphate [Mass/Vol] 3.5 mg/dL Normal 2.7-4.5 [facility] Comment on above: Performed By: #### 4 [id number] ####[facility] [address] [place] [address] 59429 Huber Prado M.D. [id number] POC GLUCOSE [facility] 024 Glucose [Mass/Vol] 158 mg/dL High 65-99 [facility] Comment on above: Performed By: #### 4 6932 ####[facility] [address] [place] [address] [id number] RMHPOC Glucose [Mass/Vol] 124 mg/dL High 65-99 [facility] Comment on above: Performed By: #### 4 6925 ####[facility] [address] [place] [address] [id number] RMHPOC Glucose [Mass/Vol] 113 mg/dL High 65-[address] [place] [address] Comment on above: Performed By: #### 4 6924 ####[facility] [address] [place] [address] [id number] RMHPOC CBC WITH AUTO DIFFERENTIALon 05-15-2024 AUTO NRBC 0.0 % Normal [facility] Comment on above: Performed By: #### L [id number] ####[facility] [address] [place] [address] Huber Prado M.D. [id number] AUTO NRBC ABS COUNT 0.00 K/mcL Normal 0.00-0.00 [facility] Comment on above: Performed By: #### Tasha [id number] ####[facility] [address] [place] [address] Huber Prado M.D. [id number] BASOPHILS ABSOLUTE COUNT 0.11 K/mcL Normal 0.00-0.30 [facility] Comment on above: Performed By: #### Tasha [id number] ####[facility] [address] [place] [address] Huber Prado M.D. [id number] Basophils/100 WBC (Bld) 1.0 % Normal [facility] Comment on above: Performed By: #### Tasha [id number] ####[facility] [address] [place] [address] Huber Prado M.D. [id number] Eosinophils (Bld) [#/Vol] 0.32 10*3/uL Normal 0.00-0.50 [facility] Comment on above: Performed By: #### L [id number] ####[facility] [address] [place] [address] Huber Prado M.D. [id number] Eosinophils/100 WBC (Bld) 2.8 % Normal [facility] Comment on above: Performed By: #### L [id number] ####[facility] [address] [place] [address] Huber Prado M.D. [id number] Erythrocyte distribution width (RBC) [Ratio] 14.5 % Normal 11.6-14.8 [facility] Comment on above: Performed By: #### L [id number] ####[facility] [address] [place] [address] Huber Prado M.D. [id number] Hematocrit (Bld) [Volume fraction] 26.8 % Low 36.0-46.0 [facility] Comment on above: Performed By: #### L [id number] ####[facility] [address] [place] [address] Huber Prado M.D. [id number] Hemoglobin (Bld) [Mass/Vol] 8.6 g/dL Low 12.0-16.0 [facility] Comment on above: Performed By: #### L [id number] ####[facility] [address] [place] [address] Huber Prado M.D. [id number] IG ABSOLUTE 0.09 K/mcL Normal 0.00-0.30 [facility] Comment on above: Performed By: #### L [id number] ####[facility] [address] [place] [address] Huber Prado M.D. [id number] IG PERCENT 0.80 % Normal [facility] Comment on above: Result Comment: The IG parameter is the percentage of metamyelocytes, myelocytes and promyelocytes. An immature granulocyte count (IG) of 1% or more suggests the possibility of infection, an IG count of 3% is very likely related to an infection. Performed By: #### L [id number] ####[facility] [address] [place] [address] Huber Prado M.D. [id number] Lymphocytes (Bld) [#/Vol] 1.72 10*3/uL Normal 0.90-4.00 [facility] Comment on above: Performed By: #### L [id number] ####[facility] [address] [place] [address] Huber Prado M.D. [id number] Lymphocytes/100 WBC (Bld) 15.1 % Normal [facility] Comment on above: Performed By: #### Tasha [id number] ####[facility] [address] [place] [address] Huber Prado M.D. [id number] MCH (RBC) [Entitic mass] 30.8 pg Normal 26.0-34.0 [facility] Comment on above: Performed By: #### Tasha [id number] ####[facility] [address] [place] [address] Huber Prado M.D. [id number] MCV (RBC) [Entitic vol] 96.1 fL Normal 80.0-100.0 [facility] Comment on above: Performed By: #### Tasha [id number] ####[facility] [address] [place] [address] Huber Prado M.D. [id number] MEAN CORPUSCULAR HEMOGLOBIN CONC 32.1 g/dL Normal 31.0-37.0 [facility] Comment on above: Performed By: #### Tasha [id number] ####[facility] [address] [place] [address] Huber Prado M.D. [id number] Monocytes (Bld) [#/Vol] 0.81 10*3/uL Normal 0.30-0.90 [facility] Comment on above: Performed By: #### Tasha [id number] ####[facility] [address] [place] [address] Huber Prado M.D. [id number] Monocytes/100 WBC (Bld) 7.1 % Normal [facility] Comment on above: Performed By: #### Tasha [id number] ####[facility] [address] [place] [address] Huber Prado M.D. [id number] NEUTROPHILS ABSOLUTE COUNT 8.37 K/mcL High 1.70-7.00 [facility] Comment on above: Performed By: #### Tasha [id number] ####[facility] [address] [place], [place] [id number] Huber Prado M.D. [id number] Neutrophils/100 WBC (Bld) 73.2 % Normal [facility] Comment on above: Performed By: #### Tasha [id number] ####[facility] [address] [place] [address] Huber Prado M.D. [id number] Platelet mean volume (Bld) [Entitic vol] 12.1 fL Normal 9.4-12.4 [facility] Comment on above: Performed By: #### Tasha [id number] ####[facility] [address] [place] [address] Huber Prado M.D. [id number] Platelets (Bld) [#/Vol] 169 10*3/uL Normal 150-400 [facility] Comment on above: Performed By: #### Tasha [id number] ####[facility] [address] [place], [place] [id number] Huber Prado M.D. [id number] RBC (Bld) [#/Vol] 2.79 10*6/uL Low 4.00-5.20 [facility] Comment on above: Performed By: #### L [id number] ####[facility] [address] [place], [place] [address] Huber Prado M.D. [id number] WBC (Bld) [#/Vol] 11.42 10*3/uL High 4.50-11.00 [facility] Comment on above: Performed By: #### L [id number] ####[facility] [address] [place], [place] [address] Huber Prado M.D. [id number] COMPREHENSIVE METABOLIC PANE Nate 05-15-2024 Albumin [Mass/Vol] 3.8 g/dL Normal 3.2-5.2 [facility] Comment on above: Order Comment: [facility] Laboratory Services has implemented the eGFR calculation approach that does not have a coefficient for race that conforms to the NKF-ASN Task Force Recommendations. Performed By: #### 4 [id number] ####[facility] [address] [place], [place] [address] Huber Prado M.D. [id number] ALP [Catalytic activity/Vol] 142 U/L High 40-140 [facility] Comment on above: Order Comment: [facility] Laboratory [facility] has implemented the eGFR calculation approach that does not have a coefficient for race that conforms to the NKF-ASN Task Force Recommendations. Performed By: #### 4 [id number] ####[facility] [address] [place], [place] [address] Huber Prado M.D. [id number] ALT [Catalytic activity/Vol] 22 U/L Normal 0-35 U/L [facility] Comment on above: Order Comment: [facility] Laboratory [facility] has implemented the eGFR calculation approach that does not have a coefficient for race that conforms to the NKF-ASN Task Force Recommendations. Performed By: #### 4 [id number] ####[facility] [address] [place], [place] [address] Huber Prado M.D. [id number] Anion gap [Moles/Vol] 19 mmol/L Normal 10-20 [facility] Comment on above: Order Comment: [facility] Laboratory [facility] has implemented the eGFR calculation approach that does not have a coefficient for race that conforms to the NKF-ASN Task Force Recommendations. Performed By: #### 4 [id number] ####[facility] [address] [place], [place] [address] Huber Prado M.D. [id number] AST [Catalytic activity/Vol] 11 U/L Normal 0-35 U/L [facility] Comment on above: Order Comment: [facility] Laboratory [facility] has implemented the eGFR calculation approach that does not have a coefficient for race that conforms to the NKF-ASN Task Force Recommendations. Performed By: #### 4 [id number] ####[facility] [address] [place] [address] 18518 Huber Prado M.D. [id number] BILIRUBIN TOTAL < Normal 0.0-1.3 [facility] Comment on above: Order Comment: [facility] Laboratory [facility] has implemented the eGFR calculation approach that does not have a coefficient for race that conforms to the NKF-ASN Task Force Recommendations. Performed By: #### 4 6126 ####[facility] [address] [place] [address] 31410 Huber Prado M.D. [id number] Calcium [Mass/Vol] 9.0 mg/dL Normal 8.4-10.2 [facility] Comment on above: Order Comment: [facility] Laboratory [facility] has implemented the eGFR calculation approach that does not have a coefficient for race that conforms to the NKF-ASN Task Force Recommendations. Performed By: #### 4 6126 ####[facility] [address] [place] [address] 62662 Huber Prado M.D. [id number] Chloride [Moles/Vol] 107 mmol/L Normal 98-108 [facility] Comment on above: Order Comment: [facility] Laboratory [facility] has implemented the eGFR calculation approach that does not have a coefficient for race that conforms to the NKF-ASN Task Force Recommendations. Performed By: #### 4 6126 ####[facility] [address] [place] [address] 52032 Huber Prado M.D. [id number] Creatinine [Mass/Vol] 0.83 mg/dL Normal 0.40-1.10 [facility] Comment on above: Order Comment: [facility] Laboratory Services has implemented the eGFR calculation approach that does not have a coefficient for race that conforms to the NKF-ASN Task Force Recommendations. Performed By: #### 4 6126 ####[facility] [address] [place], [place] [address] Huber Prado M.D. [id number] EGFR 95 mL/min/1.73 m2 Normal >=60 [facility] Comment on above: Order Comment: [facility] Laboratory Services has implemented the eGFR calculation approach that does not have a coefficient for race that conforms to the NKF-ASN Task Force Recommendations. Result Comment: Neema mated GFR was calculated using the 2020 CKD-EPI creatinine equation. Performed By: #### 4 6126 ####[facility] [address] [place], [place] [address] Huber Prado M.D. [id number] Glucose [Mass/Vol] 123 mg/dL High 65-99 [facility] Comment on above: Order Comment: [facility] Laboratory Services has implemented the eGFR calculation approach that does not have a coefficient for race that conforms to the NKF-ASN Task Force Recommendations. Performed By: #### 4 6126 ####[facility] [address] [place], [place] [address] Huber Prado M.D. [id number] HCO3 (Bld) [Moles/Vol] 22 mmol/L Normal 21-32 [facility] Comment on above: Order Comment: [facility] Laboratory Services has implemented the eGFR calculation approach that does not have a coefficient for race that conforms to the NKF-ASN Task Force Recommendations. Performed By: #### 4 6126 ####[facility] [address] [place], [place] [address] Huber Prado M.D. [id number] Potassium [Moles/Vol] 4.3 mmol/L Normal 3.5-5.1 [facility] Comment on above: Order Comment: [facility] Laboratory Services has implemented the eGFR calculation approach that does not have a coefficient for race that conforms to the NKF-ASN Task Force Recommendations. Performed By: #### 4 6126 ####[facility] [address] [place], [place] [address] Huber Prado M.D. [id number] Protein [Mass/Vol] 7.0 g/dL Normal 6.0-8.0 [facility] Comment on above: Order Comment: [facility] Laboratory Services has implemented the eGFR calculation approach that does not have a coefficient for race that conforms to the NKF-ASN Task Force Recommendations. Performed By: #### 4 6126 ####[facility] [address] [place] [address] 28719 Huber Prado M.D. [id number] Sodium [Moles/Vol] 144 mmol/L Normal 135-145 [facility] Comment on above: Order Comment: [facility] Laboratory Services has implemented the eGFR calculation approach that does not have a coefficient for race that conforms to the NKF-ASN Task Force Recommendations. Performed By: #### 4 [id number] ####[facility] [address] [place] [address] 81514 Huber Prado M.D. [id number] Urea nitrogen [Mass/Vol] 27 mg/dL High 8-25 [facility] Comment on above: Order Comment: [facility] Laboratory Services has implemented the eGFR calculation approach that does not have a coefficient for race that conforms to the NKF-ASN Task Force Recommendations. Performed By: #### 4 6126 ####[facility] [address] [place] [address] 03472 Huber Prado M.D. [id number] Urea nitrogen/Creatinine [Mass ratio] 32.5 mg/mg High 10.0-20.0 [facility] Comment on above: Order Comment: [facility] Laboratory Services has implemented the eGFR calculation approach that does not have a coefficient for race that conforms to the NKF-ASN Task Force Recommendations. Performed By: #### 4 [id number] ####[facility] [address] [place] [address] 57760 Huber Prado M.D. [id number] [facility] PHOSPHORUSon 05-15-2024 Phosphate [Mass/Vol] 3.9 mg/dL Normal 2.7-4.5 [facility] Comment on above: Performed By: #### 4 6299 ####[facility] [address] [place] [address] Huber Prado M.D. [id number] POC GLUCOSE - [facility] 024 Glucose [Mass/Vol] 115 mg/dL High [address] [place] [address] Comment on above: Performed By: #### 4 1284 ####[facility] [address] [place] [address] [id number] RMHPOC Glucose [Mass/Vol] 112 mg/dL High [address] [place] [address] Comment on above: Performed By: #### 4 9632 ####[facility] [address] [place] [address] [id number] RMHPOC Glucose [Mass/Vol] 139 mg/dL High [address] [place] [address] Comment on above: Performed By: #### 4 [id number] ####[facility] [address] [place] [address] [id number] RMHPOC Glucose [Mass/Vol] 129 mg/dL [address] Comment on above: Performed By: #### 4 4410 ####[facility] [address] [place] [address] [id number] RMHPOC Glucose [Mass/Vol] 127 mg/dL High [address] [place] [address] Comment on above: Performed By: #### 4 9411 ####[facility] [address] [place] [address] [id number] RMHPOC Glucose [Mass/Vol] 98 mg/dL Normal [address] [place] [address] Comment on above: Performed By: #### 4 7618 ####[facility] [address] [place] [address] [id number] [facility] BLOOD CULTURE AEROBIC/ANAERO BICon 05-14-2024 BLOOD CULTURE AEROBIC/ANAEROBIC BLOOD CULTURE No Growth after 5 days Normal [facility] Comment on above: Performed By: #### 4 [id number] ####[facility] [address] [place] [address] Huber Prado M.D. [id number] CBC WITH AUTO DIFFERENTIALon 05-14-2024 AUTO NRBC 0.0 % Normal [facility] Comment on above: Performed By: #### L [id number] ####[facility] [address] [place] [address] Huber Prado M.D. [id number] AUTO NRBC ABS COUNT 0.00 K/mcL Normal 0.00-0.00 [facility] Comment on above: Performed By: #### L [id number] ####[facility] [address] [place] [address] Huber Prado M.D. [id number] BASOPHILS ABSOLUTE COUNT 0.11 K/mcL Normal 0.00-0.30 [facility] Comment on above: Performed By: #### L [id number] ####[facility] [address] [place] [address] Huber Prado M.D. [id number] Basophils/100 WBC (Bld) 1.1 % [facility] Comment on above: Performed By: #### L [id number] ####[facility] [address] [place] [address] Huber Prado M.D. [id number] Eosinophils (Bld) [#/Vol] 0.21 10*3/uL Normal 0.00-0.50 [facility] Comment on above: Performed By: #### L [id number] ####[facility] [address] [place] [address] Huber Prado M.D. [id number] Eosinophils/100 WBC (Bld) 2.1 % Normal [facility] Comment on above: Performed By: #### L [id number] ####[facility] [address] [place] [address] Huber Prado M.D. [id number] Erythrocyte distribution width (RBC) [Ratio] 14.8 % Normal 11.6-14.8 [facility] Comment on above: Performed By: #### L [id number] ####[facility] [address] [place] [address] Huber Prado M.D. [id number] Hematocrit (Bld) [Volume fraction] 27.5 % Low 36.0-46.0 [facility] Comment on above: Performed By: #### L [id number] ####[facility] [address] [place] [address] Huber Prado M.D. [id number] Hemoglobin (Bld) [Mass/Vol] 8.8 g/dL Low 12.0-16.0 [facility] Comment on above: Performed By: #### L [id number] ####[facility] [address] [place] [address] Huber Prado M.D. [id number] IG ABSOLUTE 0.15 K/mcL Normal 0.00-0.30 [facility] Comment on above: Performed By: #### L [id number] ####[facility] [address] [place] [address] Huber Prado M.D. [id number] IG PERCENT 1.50 % Normal [facility] Comment on above: Result Comment: The IG parameter is the percentage of metamyelocytes, myelocytes and promyelocytes. An immature granulocyte count (IG) of 1% or more suggests the possibility of infection, an IG count of 3% is very likely related to an infection. Performed By: #### L [id number] ####[facility] [address] [place] [address] Huber Prado M.D. [id number] Lymphocytes (Bld) [#/Vol] 2.80 10*3/uL Normal 0.90-4.00 [facility] Comment on above: Performed By: #### Tasha [id number] ####[facility] [address] [place] [address] Huber Prado M.D. [id number] Lymphocytes/100 WBC (Bld) 27.7 % Normal [facility] Comment on above: Performed By: #### Tasha [id number] ####[facility] [address] [place] [address] Huber Prado M.D. [id number] MCH (RBC) [Entitic mass] 30.4 pg Normal 26.0-34.0 [facility] [facility] Comment on above: Performed By: #### Tasha [id number] ####[facility] [address] [place] [address] Huber Prado M.D. [id number] MCV (RBC) [Entitic vol] 95.2 fL Normal 80.0-100.0 [facility] Comment on above: Performed By: #### Tahsa [id number] ####[facility] [address] [place] [address] Huber Prado M.D. [id number] MEAN CORPUSCULAR HEMOGLOBIN CONC 32.0 g/dL Normal 31.0-37.0 [facility] Comment on above: Performed By: #### Tasha [id number] ####[facility] [address] [place] [address] Huber Prado M.D. [id number] Monocytes (Bld) [#/Vol] 0.76 10*3/uL Normal 0.30-0.90 [facility] Comment on above: Performed By: #### Tasha [id number] ####[facility] [address] [place] [address] Huber Prado M.D. [id number] Monocytes/100 WBC (Bld) 7.5 % Normal [facility] Comment on above: Performed By: #### L [id number] ####[facility] [address] [place] [address] 11072 Huber Prado M.D. [id number] NEUTROPHILS ABSOLUTE COUNT 6.07 K/mcL Normal 1.70-7.00 [facility] Comment on above: Performed By: #### L [id number] ####[facility] [address] [place] [address]88[address] Huber Prado M.D. [id number] Neutrophils/100 WBC (Bld) 60.1 % Normal [facility] Comment on above: Performed By: #### Tasha [id number] ####[facility] [address] [place], [place] [id number] Huber Prado M.D. [id number] Platelet mean volume (Bld) [Entitic vol] 11.0 fL Normal 9.4-12.4 [facility] Comment on above: Performed By: #### Tasha [id number] ####[facility] [address] [place] [address] Huber Prado M.D. [id number] Platelets (Bld) [#/Vol] 231 10*3/uL Normal 150-400 [facility] Comment on above: Performed By: #### L [id number] ####[facility] [address] [place] [address] 25601 Huber Prado M.D. [id number] RBC (Bld) [#/Vol] 2.89 10*6/uL Low 4.00-5.20 [facility] Comment on above: Performed By: #### L [id number] ####[facility] [address] [place] [address] 18752 Huber Prado M.D. [id number] WBC (Bld) [#/Vol] 10.10 10*3/uL Normal 4.50-11.00 [facility] Comment on above: Performed By: #### L [id number] ####[facility] [address] [place] [address] 80559 Huber Prado M.D. [id number] COMPREHENSIVE METABOLIC PANE Nate 05-14-2024 Albumin [Mass/Vol] 3.9 g/dL Normal 3.2-5.2 [facility] Comment on above: Order Comment: [facility] has implemented the eGFR calculation approach that does not have a coefficient for race that conforms to the NKF-ASN Task Force Recommendations. Performed By: #### [id number] ####[facility] [address] [place] [address] 74027 Huber Prado M.D. [id number] ALP [Catalytic activity/Vol] 151 U/L High 40-140 [facility] Comment on above: Order Comment: [facility] has implemented the eGFR calculation approach that does not have a coefficient for race that conforms to the NKF-ASN Task Force Recommendations. Performed By: #### 4 [id number] ####[facility] [address] [place] [address] 13052 Huber Prado M.D. [id number] ALT [Catalytic activity/Vol] 22 U/L Normal 0-35 U/L [facility] Comment on above: Order Comment: [facility] has implemented the eGFR calculation approach that does not have a coefficient for race that conforms to the NKF-ASN Task Force Recommendations. Performed By: #### 4 [id number] ####[facility] [address] [place] [address] 53248 Huber Prado M.D. [id number] Anion gap [Moles/Vol] 19 mmol/L Normal 10-20 [facility] Comment on above: Order Comment: [facility] has implemented the eGFR calculation approach that does not have a coefficient for race that conforms to the NKF-ASN Task Force Recommendations. Performed By: #### 4 [id number] ####[facility] [address] [place] [address] 55338 Huber Prado M.D. [id number] AST [Catalytic activity/Vol] 13 U/L Normal 0-35 U/L [facility] Comment on above: Order Comment: [facility] has implemented the eGFR calculation approach that does not have a coefficient for race that conforms to the NKF-ASN Task Force Recommendations. Performed By: #### 4 [id number] ####[facility] [address] [place], [place] [address] Huber Prado M.D. [id number] BILIRUBIN TOTAL < Normal 0.0-1.3 [facility] Comment on above: Order Comment: [facility] has implemented the eGFR calculation approach that does not have a coefficient for race that conforms to the NKF-ASN Task Force Recommendations. Performed By: #### 4 [id number] ####[facility] [address] [place], [place] [address] Huber Prado M.D. [id number] Calcium [Mass/Vol] 9.4 mg/dL Normal 8.4-10.2 [facility] Comment on above: Order Comment: [facility] has implemented the eGFR calculation approach that does not have a coefficient for race that conforms to the NKF-ASN Task Force Recommendations. Performed By: #### 4 [id number] ####[facility] [address] [place], [place] [address] Huber Prado M.D. [id number] Chloride [Moles/Vol] 107 mmol/L Normal 98-108 [facility] Comment on above: Order Comment: [facility] has implemented the eGFR calculation approach that does not have a coefficient for race that conforms to the NKF-ASN Task Force Recommendations. Performed By: #### 4 [id number] ####[facility] [address] [place], [place] [address] Huber Prado M.D. [id number] Creatinine [Mass/Vol] 0.91 mg/dL Normal 0.40-1.10 [facility] Comment on above: Order Comment: [facility] has implemented the eGFR calculation approach that does not have a coefficient for race that conforms to the NKF-ASN Task Force Recommendations. Performed By: #### 4 [id number] ####[facility] [address] [place] [address] 95898 Huber Prado M.D. [id number] EGFR 85 mL/min/1.73 m2 Normal >=60 [facility] Comment on above: Order Comment: [facility] has implemented the eGFR calculation approach that does not have a coefficient for race that conforms to the NKF-ASN Task Force Recommendations. Result Comment: Neema mated GFR was calculated using the 2020 CKD-EPI creatinine equation. Performed By: #### 4 [id number] ####[facility] [address] [place] [address] 06117 Huber Prado M.D. [id number] Glucose [Mass/Vol] 127 mg/dL High 65-99 [facility] Comment on above: Order Comment: [facility] has implemented the eGFR calculation approach that does not have a coefficient for race that conforms to the NKF-ASN Task Force Recommendations. Performed By: #### 4 [id number] ####[facility] [address] [place] [address] 73748 Huber Prado M.D. [id number] HCO3 (Bld) [Moles/Vol] 24 mmol/L Normal 21-32 [facility] Comment on above: Order Comment: [facility] has implemented the eGFR calculation approach that does not have a coefficient for race that conforms to the NKF-ASN Task Force Recommendations. Performed By: #### 4 [id number] ####[facility] [address] [place] [address] 63420 Huber Prado M.D. [id number] Potassium [Moles/Vol] 4.1 mmol/L Normal 3.5-5.1 [facility] Comment on above: Order Comment: [facility] has implemented the eGFR calculation approach that does not have a coefficient for race that conforms to the NKF-ASN Task Force Recommendations. Performed By: #### 4 [id number] ####[facility] [address] [place] [address] 00906 Huber Prado M.D. [id number] Protein [Mass/Vol] 7.4 g/dL Normal 6.0-8.0 [facility] Comment on above: Order Comment: [facility] has implemented the eGFR calculation approach that does not have a coefficient for race that conforms to the NKF-ASN Task Force Recommendations. Performed By: #### 4 [id number] ####[facility] [address] [place] [address] 56250 Huber Prado M.D. [id number] Sodium [Moles/Vol] 146 mmol/L High 135-145 [facility] Comment on above: Order Comment: [facility] has implemented the eGFR calculation approach that does not have a coefficient for race that conforms to the NKF-ASN Task Force Recommendations. Performed By: #### 4 [id number] ####[facility] [address] [place] [address] 08237 Huber Prado M.D. [id number] Urea nitrogen [Mass/Vol] 30 mg/dL High 8-25 [facility] Comment on above: Order Comment: [facility] has implemented the eGFR calculation approach that does not have a coefficient for race that conforms to the NKF-ASN Task Force Recommendations. Performed By: #### 4 [id number] ####[facility] [address] [place] [address] 81992 Huber Pardo M.D. [id number] Urea nitrogen/Creatinine [Mass ratio] 33.0 mg/mg High 10.0-20.0 [facility] Comment on above: Order Comment: [facility] has implemented the eGFR calculation approach that does not have a coefficient for race that conforms to the NKF-ASN Task Force Recommendations. Performed By: #### 4 [id number] ####[facility] [address] [place] [address] Huber Prado M.D. [id number] PHOSPHORUSon 05-14-2024 Phosphate [Mass/Vol] 4.0 mg/dL Normal 2.7-4.5 [facility] Comment on above: Performed By: #### 4 [id number] ####[facility] [address] [place] [address] Huber Prado M.D. [id number] POC GLUCOSE - [facility] 024 Glucose [Mass/Vol] 109 mg/dL [address] Comment on above: Performed By: #### 4 6932 ####[facility] [address] [place] [address] [id number] [facility] Glucose [Mass/Vol] 120 mg/dL [address] Comment on above: Performed By: #### 4 6906 ####[facility] [address] [place] [address] [id number] [facility] Glucose [Mass/Vol] 149 mg/dL [address] Comment on above: Performed By: #### 4 6971 ####[facility] [address] [place] [address] [id number] [facility] Glucose [Mass/Vol] 151 mg/dL High [address] [place] [address] Comment on above: Performed By: #### 4 [id number] ####[facility] [address] [place] [address] [id number] [facility] Glucose [Mass/Vol] 127 mg/dL [address] Comment on above: Performed By: #### 4 3080 ####[facility] [address] [place] [address] [id number] [facility] PROCALCITONINon 05-14-2024 PROCALCITONIN 0.07 ng/ml Normal <0.50 [facility] Comment on above: Order Comment: Resul ts <0.50 ng/ml represent a low risk of severe sepsis and/or septic shock. Performed By: #### 4 [id number] ####[facility] [address] [place] [address] Huber Prado M.D. [id number] CBC WITH AUTO DIFFERENTIALon 05-13-2024 AUTO NRBC 0.0 % Normal [facility] Comment on above: Performed By: #### L [id number] ####[facility] [address] [place] [address] Huber Prado M.D. [id number] AUTO NRBC ABS COUNT 0.00 K/mcL Normal 0.00-0.00 [facility] Comment on above: Performed By: #### L [id number] ####[facility] [address] [place] [address] Huber Prado M.D. [id number] BASOPHILS ABSOLUTE COUNT 0.11 K/mcL Normal 0.00-0.30 [facility] Comment on above: Performed By: #### L [id number] ####[facility] [address] [place] [address] Huber Prado M.D. [id number] Basophils/100 WBC (Bld) 1.2 % Normal [facility] Comment on above: Performed By: #### L [id number] ####[facility] [address] [place] [address] Huber Prado M.D. [id number] Eosinophils (Bld) [#/Vol] 0.27 10*3/uL Normal 0.00-0.50 [facility] Comment on above: Performed By: #### L [id number] ####[facility] [address] [place] [address] Huber Prado M.D. [id number] Eosinophils/100 WBC (Bld) 3.0 % Normal [facility] Comment on above: Performed By: #### L [id number] ####[facility] [address] [place] [address] Huber Prado M.D. [id number] Erythrocyte distribution width (RBC) [Ratio] 14.8 % Normal 11.6-14.8 [facility] Comment on above: Performed By: #### L [id number] ####[facility] [address] [place] [address] Huber Prado M.D. [id number] Hematocrit (Bld) [Volume fraction] 26.6 % Low 36.0-46.0 [facility] Comment on above: Performed By: #### L [id number] ####[facility] [address] [place] [address] Huber Prado M.D. [id number] Hemoglobin (Bld) [Mass/Vol] 8.3 g/dL Low 12.0-16.0 [facility] Comment on above: Performed By: #### L [id number] ####[facility] [address] [place] [address] Huber Prado M.D. [id number] IG ABSOLUTE 0.19 K/mcL Normal 0.00-0.30 [facility] Comment on above: Performed By: #### L [id number] ####[facility] [address] [place] [address] Huber Prado M.D. [id number] IG PERCENT 2.10 % Normal [facility] Comment on above: Result Comment: The IG parameter is the percentage of metamyelocytes, myelocytes and promyelocytes. An immature granulocyte count (IG) of 1% or more suggests the possibility of infection, an IG count of 3% is very likely related to an infection. Performed By: #### L [id number] ####[facility] [address] [place] [address] Huber Prado M.D. [id number] Lymphocytes (Bld) [#/Vol] 2.51 10*3/uL Normal 0.90-4.00 [facility] Comment on above: Performed By: #### Tasha [id number] ####[facility] [address] [place] [address] Huber Prado M.D. [id number] Lymphocytes/100 WBC (Bld) 28.0 % Normal [facility] Comment on above: Performed By: #### Tasha [id number] ####[facility] [address] [place] [address] Huber Prado M.D. [id number] MCH (RBC) [Entitic mass] 30.2 pg Normal 26.0-34.0 [facility] Comment on above: Performed By: #### Tasha [id number] ####[facility] [address] [place] [address] Huber Prado M.D. [id number] MCV (RBC) [Entitic vol] 96.7 fL Normal 80.0-100.0 [facility] Comment on above: Performed By: #### Tasha [id number] ####[facility] [address] [place] [address] Huber Prado M.D. [id number] MEAN CORPUSCULAR HEMOGLOBIN CONC 31.2 g/dL Normal 31.0-37.0 [facility] Comment on above: Performed By: #### Tasha [id number] ####[facility] [address] [place] [address] Huber Prado M.D. [id number] Monocytes (Bld) [#/Vol] 0.76 10*3/uL Normal 0.30-0.90 [facility] Comment on above: Performed By: #### Tasha [id number] ####[facility] [address] [place], [place] [id number] Huber Prado M.D. [id number] Monocytes/100 WBC (Bld) 8.5 % Normal [facility] Comment on above: Performed By: #### L [id number] ####[facility] [address] [place] [address] Huber Prado M.D. [id number] NEUTROPHILS ABSOLUTE COUNT 5.13 K/mcL Normal 1.70-7.00 [facility] Comment on above: Performed By: #### L [id number] ####[facility] [address] [place] [address] Huber Prado M.D. [id number] Neutrophils/100 WBC (Bld) 57.2 % Normal [facility] Comment on above: Performed By: #### Tasha [id number] ####[facility] [address] [place] [address] Huber Prado M.D. [id number] Platelet mean volume (Bld) [Entitic vol] 11.7 fL Normal 9.4-12.4 [facility] Comment on above: Performed By: #### L [id number] ####[facility] [address] [place] [address] Huber Prado M.D. [id number] Platelets (Bld) [#/Vol] 214 10*3/uL Normal 150-400 [facility] Comment on above: Performed By: #### L [id number] ####[facility] [address] [place] [address] Huber Prado M.D. [id number] RBC (Bld) [#/Vol] 2.75 10*6/uL Low 4.00-5.20 [facility] Comment on above: Performed By: #### L [id number] ####[facility] [address] [place] [address] Huber Prado M.D. [id number] WBC (Bld) [#/Vol] 8.97 10*3/uL Normal 4.50-11.00 [facility] Comment on above: Performed By: #### L [id number] ####[facility] [address] [place], [place] [id number] Huber Prado M.D. [id number] COMPREHENSIVE METABOLIC PANE Nate 05-13-2024 Albumin [Mass/Vol] 3.9 g/dL Normal 3.2-5.2 [facility] Comment on above: Order Comment: [facility] has implemented the eGFR calculation approach that does not have a coefficient for race that conforms to the NKF-ASN Task Force Recommendations. Performed By: #### 4 [id number] ####[facility] [address] [place], [place] [address] Huber Prado M.D. [id number] ALP [Catalytic activity/Vol] 153 U/L High 40-140 [facility] Comment on above: Order Comment: [facility] has implemented the eGFR calculation approach that does not have a coefficient for race that conforms to the NKF-ASN Task Force Recommendations. Performed By: #### 4 [id number] ####[facility] [address] [place], [place] [address] Huber Prado M.D. [id number] ALT [Catalytic activity/Vol] 23 U/L Normal 0-35 U/L [facility] Comment on above: Order Comment: [facility] has implemented the eGFR calculation approach that does not have a coefficient for race that conforms to the NKF-ASN Task Force Recommendations. Performed By: #### 4 [id number] ####[facility] [address] [place], [place] [address] Huber Prado M.D. [id number] Anion gap [Moles/Vol] 20 mmol/L Normal 10-20 [facility] Comment on above: Order Comment: [facility] has implemented the eGFR calculation approach that does not have a coefficient for race that conforms to the NKF-ASN Task Force Recommendations. Performed By: #### 4 [id number] ####[facility] [address] [place] [address] 54965 Huber Prado M.D. [id number] AST [Catalytic activity/Vol] 18 U/L Normal 0-35 U/L [facility] Comment on above: Order Comment: [facility] has implemented the eGFR calculation approach that does not have a coefficient for race that conforms to the NKF-ASN Task Force Recommendations. Result Comment: Slig htly Hemolyzed Performed By: #### 4 [id number] ####[facility] [address] [place], [place] [id number] Huber Prado M.D. [id number] BILIRUBIN TOTAL < Normal 0.0-1.3 [facility] Comment on above: Order Comment: [facility] has implemented the eGFR calculation approach that does not have a coefficient for race that conforms to the NKF-ASN Task Force Recommendations. Performed By: #### 4 [id number] ####[facility] [address] [place] [address] 63644 Huber Prado M.D. [id number] Calcium [Mass/Vol] 9.4 mg/dL Normal 8.4-10.2 [facility] Comment on above: Order Comment: [facility] has implemented the eGFR calculation approach that does not have a coefficient for race that conforms to the NKF-ASN Task Force Recommendations. Performed By: #### 4 [id number] ####[facility] [address] [place] [address] 63705 Huber Prado M.D. [id number] Chloride [Moles/Vol] 108 mmol/L Normal 98-108 [facility] Comment on above: Order Comment: [facility] has implemented the eGFR calculation approach that does not have a coefficient for race that conforms to the NKF-ASN Task Force Recommendations. Performed By: #### 4 [id number] ####[facility] [address] [place] [address] 17273 Huber Prado M.D. [id number] Creatinine [Mass/Vol] 0.87 mg/dL Normal 0.40-1.10 [facility] Comment on above: Order Comment: [facility] has implemented the eGFR calculation approach that does not have a coefficient for race that conforms to the NKF-ASN Task Force Recommendations. Performed By: #### 4 [id number] ####[facility] [address] [place] [address] 29432 Huber Prado M.D. [id number] EGFR 90 mL/min/1.73 m2 Normal >=60 [facility] Comment on above: Order Comment: [facility] has implemented the eGFR calculation approach that does not have a coefficient for race that conforms to the NKF-ASN Task Force Recommendations. Result Comment: Neema mated GFR was calculated using the 2020 CKD-EPI creatinine equation. Performed By: #### 4 [id number] ####[facility] [address] [place] [address] 26934 Huber Prado M.D. [id number] Glucose [Mass/Vol] 128 mg/dL High 65-99 [facility] Comment on above: Order Comment: [facility] has implemented the eGFR calculation approach that does not have a coefficient for race that conforms to the NKF-ASN Task Force Recommendations. Performed By: #### 4 [id number] ####[facility] [address] [place] [address] 48427 Huber Prado M.D. [id number] HCO3 (Bld) [Moles/Vol] 24 mmol/L Normal 21-32 [facility] Comment on above: Order Comment: [facility] has implemented the eGFR calculation approach that does not have a coefficient for race that conforms to the NKF-ASN Task Force Recommendations. Performed By: #### 4 [id number] ####[facility] [address] [place] [address] [id number] Huber Prado M.D. [id number] Potassium [Moles/Vol] 3.8 mmol/L Normal 3.5-5.1 [facility] Comment on above: Order Comment: [facility] has implemented the eGFR calculation approach that does not have a coefficient for race that conforms to the NKF-ASN Task Force Recommendations. Result Comment: Slig htly Hemolyzed Performed By: #### 4 [id number] ####[facility] [address] [place] [address] 12519 Huber Prado M.D. [id number] Protein [Mass/Vol] 7.3 g/dL Normal 6.0-8.0 [facility] Comment on above: Order Comment: [facility] has implemented the eGFR calculation approach that does not have a coefficient for race that conforms to the NKF-ASN Task Force Recommendations. Performed By: #### 4 [id number] ####[facility] [address] [place], [place] [id number] Huber Prado M.D. [id number] Sodium [Moles/Vol] 148 mmol/L High 135-145 [facility] Comment on above: Order Comment: [facility] has implemented the eGFR calculation approach that does not have a coefficient for race that conforms to the NKF-ASN Task Force Recommendations. Performed By: #### 4 [id number] ####[facility] [address] [place] [address] 68137 Huber Prado M.D. [id number] Urea nitrogen [Mass/Vol] 32 mg/dL High 8-25 [facility] Comment on above: Order Comment: [facility] has implemented the eGFR calculation approach that does not have a coefficient for race that conforms to the NKF-ASN Task Force Recommendations. Performed By: #### 4 [id number] ####[facility] [address] [place] [address] 06062 Huber Praod M.D. [id number] Urea nitrogen/Creatinine [Mass ratio] 36.8 mg/mg High 10.0-20.0 [facility] Comment on above: Order Comment: [facility] has implemented the eGFR calculation approach that does not have a coefficient for race that conforms to the NKF-ASN Task Force Recommendations. Performed By: #### 4 [id number] ####[facility] [address] [place] [address] Huber Prado M.D. [id number] PHOSPHORUSon 05-13-2024 Phosphate [Mass/Vol] 4.0 mg/dL Normal 2.7-4.5 [facility] Comment on above: Performed By: #### 4 [id number] ####[facility] [address] [place] [address] Huber Prado M.D. [id number] POC GLUCOSE [facility] 024 Glucose [Mass/Vol] 124 mg/dL [address] Comment on above: Performed By: #### 4 [id number] ####[facility] [address] [place] [address] [id number] [facility] Glucose [Mass/Vol] 129 mg/dL [address] Comment on above: Performed By: #### 4 [id number] ####[facility] [address] [place] [address] [id number] [facility] Glucose [Mass/Vol] 130 mg/dL [address] Comment on above: Performed By: #### 4 [id number] ####[facility] [address] [place] [address] [id number] [facility] Glucose [Mass/Vol] 150 mg/dL [address] Comment on above: Performed By: #### 4 6974 ####[facility] [address] [place] [address] [id number] [facility] Glucose [Mass/Vol] 141 mg/dL [address] Comment on above: Performed By: #### 4 [id number] ####[facility] [address] [place] [address] [id number] [facility] Glucose [Mass/Vol] 134 mg/dL [address] Comment on above: Performed By: #### 4 [id number] ####[facility] [address] [place] [address] [id number] [facility] Glucose [Mass/Vol] 127 mg/dL [address] Comment on above: Performed By: #### 4 [id number] ####[facility] [address] [place] [address] [id number] [facility] POTASSIUM LEVELon 05-13-2024 Potassium [Moles/Vol] 4.5 mmol/L Normal 3.5-5.1 [facility] Comment on above: Performed By: #### 4 6351 ####[facility] [address] [place] [address] Huber Prado M.D. [id number] PROCALCITONINon 05-13-2024 PROCALCITONIN 0.06 ng/ml Normal <0.50 [facility] Comment on above: Order Comment: Resul ts <0.50 ng/ml represent a low risk of severe sepsis and/or septic shock. Performed By: #### 4 [id number] ####[facility] [address] [place] [address] Huber Prado M.D. [id number] XR CHEST PA/APon 05-13-2024 XR CHEST PA/AP [facility] Comment on above: Order Comment: Injur y/Trauma or Illness?:Illness/OtherHow long have you had these symptoms (acute/chronic)?:AcuteReason for exam?:sobHistory of cancer?:UnknownSurgeries, chemotherapy, or radiation?:YesType of Exam?:Subsequent/Follow-upAdditional signs and symptoms?:sob CBC WITH AUTO DIFFERENTIALon 05-12-2024 AUTO NRBC 0.0 % Normal [facility] Comment on above: Performed By: #### L [id number] ####[facility] [address] [place], [place] [id number] Huber Prado M.D. [id number] AUTO NRBC ABS COUNT 0.00 K/mcL Normal 0.00-0.00 [facility] Comment on above: Performed By: #### L [id number] ####[facility] [address] [place] [address] Huber Prado M.D. [id number] BASOPHILS ABSOLUTE COUNT 0.15 K/mcL Normal 0.00-0.30 [facility] Comment on above: Performed By: #### L [id number] ####[facility] [address] [place] [address] Huber Prado M.D. [id number] Basophils/100 WBC (Bld) 1.5 % Normal [facility] Comment on above: Performed By: #### L [id number] ####[facility] [address] [place] [address] Huber Prado M.D. [id number] Eosinophils (Bld) [#/Vol] 0.23 10*3/uL Normal 0.00-0.50 [facility] Comment on above: Performed By: #### L [id number] ####[facility] [address] [place], [place] [id number] Huber Prado M.D. [id number] Eosinophils/100 WBC (Bld) 2.3 % Normal [facility] Comment on above: Performed By: #### L [id number] ####[facility] [address] [place] [address] Huber Prado M.D. [id number] Erythrocyte distribution width (RBC) [Ratio] 14.5 % Normal 11.6-14.8 [facility] Comment on above: Performed By: #### L [id number] ####[facility] [address] [place], [place] [id number] Huber Prado M.D. [id number] Hematocrit (Bld) [Volume fraction] 25.2 % Low 36.0-46.0 [facility] Comment on above: Performed By: #### L [id number] ####[facility] [address] [place], [place] [id number] Huber Prado M.D. [id number] Hemoglobin (Bld) [Mass/Vol] 8.1 g/dL Low 12.0-16.0 [facility] Comment on above: Performed By: #### L [id number] ####[facility] [address] [place] [address] Huber Prado M.D. [id number] IG ABSOLUTE 0.16 K/mcL Normal 0.00-0.30 [facility] Comment on above: Performed By: #### L [id number] ####[facility] [address] [place] [address] Huber Prado M.D. [id number] IG PERCENT 1.60 % Normal [facility] Comment on above: Result Comment: The IG parameter is the percentage of metamyelocytes, myelocytes and promyelocytes. An immature granulocyte count (IG) of 1% or more suggests the possibility of infection, an IG count of 3% is very likely related to an infection. Performed By: #### L [id number] ####[facility] [address] [place], [place] [id number] Huber Prado M.D. [id number] Lymphocytes (Bld) [#/Vol] 2.66 10*3/uL Normal 0.90-4.00 [facility] Comment on above: Performed By: #### L [id number] ####[facility] [address] [place], [place] [id number] Huber Prado M.D. [id number] Lymphocytes/100 WBC (Bld) 27.1 % Normal [facility] Comment on above: Performed By: #### Tasha [id number] ####[facility] [address] [place] [address] Huber Prado M.D. [id number] MCH (RBC) [Entitic mass] 30.0 pg Normal 26.0-34.0 [facility] Comment on above: Performed By: #### Tasha [id number] ####[facility] [address] [place] [address] Huber Prado M.D. [id number] MCV (RBC) [Entitic vol] 93.3 fL Normal 80.0-100.0 [facility] Comment on above: Performed By: #### Tasha [id number] ####[facility] [address] [place] [address] Huber Praod M.D. [id number] MEAN CORPUSCULAR HEMOGLOBIN CONC 32.1 g/dL Normal 31.0-37.0 [facility] Comment on above: Performed By: #### Tasha [id number] ####[facility] [address] [place] [address] Huber Prado M.D. [id number] Monocytes (Bld) [#/Vol] 0.86 10*3/uL Normal 0.30-0.90 [facility] Comment on above: Performed By: #### Tasha [id number] ####[facility] [address] [place] [address] Huber Prado M.D. [id number] Monocytes/100 WBC (Bld) 8.7 % Normal [facility] Comment on above: Performed By: #### Tasha [id number] ####[facility] [address] [place] [address] Huber Prado M.D. [id number] NEUTROPHILS ABSOLUTE COUNT 5.77 K/mcL Normal 1.70-7.00 [facility] Comment on above: Performed By: #### L [id number] ####[facility] [address] [place] [address] 87716 Huber Prado M.D. [id number] Neutrophils/100 WBC (Bld) 58.8 % Normal [facility] Comment on above: Performed By: #### Tasha [id number] ####[facility] [address] [place] [address] Hbuer Prado M.D. [id number] Platelet mean volume (Bld) [Entitic vol] 11.8 fL Normal 9.4-12.4 [facility] Comment on above: Performed By: #### L [id number] ####[facility] [address] [place] [address] Huber Prado M.D. [id number] Platelets (Bld) [#/Vol] 231 10*3/uL Normal 150-400 [facility] Comment on above: Performed By: #### L [id number] ####[facility] [address] [place], [place] [id number] Huber Prado M.D. [id number] RBC (Bld) [#/Vol] 2.70 10*6/uL Low 4.00-5.20 [facility] Comment on above: Performed By: #### L [id number] ####[facility] [address] [place], [place] [id number] Huber Prado M.D. [id number] WBC (Bld) [#/Vol] 9.83 10*3/uL Normal 4.50-11.00 [facility] Comment on above: Performed By: #### L [id number] ####[facility] [address] [place] [address] 50436 Huber Prado M.D. [id number] [facility] 05-12-2024 Albumin [Mass/Vol] 3.7 g/dL Normal 3.2-5.2 [facility] Comment on above: Order Comment: [facility] has implemented the eGFR calculation approach that does not have a coefficient for race that conforms to the NKF-ASN Task Force Recommendations. Performed By: #### 4 [id number] ####[facility] [address] [place], [place] [address] Huber Prado M.D. [id number] ALP [Catalytic activity/Vol] 155 U/L High 40-140 [facility] Comment on above: Order Comment: [facility] has implemented the eGFR calculation approach that does not have a coefficient for race that conforms to the NKF-ASN Task Force Recommendations. Performed By: #### 4 [id number] ####[facility] [address] [place], [place] [address] Huber Prado M.D. [id number] ALT [Catalytic activity/Vol] 27 U/L Normal 0-35 U/L [facility] Comment on above: Order Comment: [facility] has implemented the eGFR calculation approach that does not have a coefficient for race that conforms to the NKF-ASN Task Force Recommendations. Performed By: #### 4 [id number] ####[facility] [address] [place], [place] [address] Huber Prado M.D. [id number] Anion gap [Moles/Vol] 18 mmol/L Normal 10-20 [facility] Comment on above: Order Comment: [facility] has implemented the eGFR calculation approach that does not have a coefficient for race that conforms to the NKF-ASN Task Force Recommendations. Performed By: #### 4 [id number] ####[facility] [address] [place] [address] 05368 Huber Prado M.D. [id number] AST [Catalytic activity/Vol] 19 U/L Normal 0-35 U/L [facility] Comment on above: Order Comment: [facility] has implemented the eGFR calculation approach that does not have a coefficient for race that conforms to the NKF-ASN Task Force Recommendations. Performed By: #### 4 [id number] ####[facility] [address] [place] [address] 22373 Huber Prado M.D. [id number] BILIRUBIN TOTAL < Normal 0.0-1.3 [facility] Comment on above: Order Comment: [facility] has implemented the eGFR calculation approach that does not have a coefficient for race that conforms to the NKF-ASN Task Force Recommendations. Performed By: #### 4 [id number] ####[facility] [address] [place] [address] 09270 Huber Prado M.D. [id number] Calcium [Mass/Vol] 9.7 mg/dL Normal 8.4-10.2 [facility] Comment on above: Order Comment: [facility] has implemented the eGFR calculation approach that does not have a coefficient for race that conforms to the NKF-ASN Task Force Recommendations. Performed By: #### 4 [id number] ####[facility] [address] [place] [address] 24651 Huber Prado M.D. [id number] Chloride [Moles/Vol] 107 mmol/L Normal 98-108 [facility] Comment on above: Order Comment: [facility] has implemented the eGFR calculation approach that does not have a coefficient for race that conforms to the NKF-ASN Task Force Recommendations. Performed By: #### 4 [id number] ####[facility] [address] [place] [address] 48920 Huber Prado M.D. [id number] Creatinine [Mass/Vol] 1.14 mg/dL High 0.40-1.10 [facility] Comment on above: Order Comment: [facility] has implemented the eGFR calculation approach that does not have a coefficient for race that conforms to the NKF-ASN Task Force Recommendations. Performed By: #### 4 [id number] ####[facility] [address] [place] [address] 21700 Huber Prado M.D. [id number] EGFR 65 mL/min/1.73 m2 Normal >=60 [facility] Comment on above: Order Comment: [facility] has implemented the eGFR calculation approach that does not have a coefficient for race that conforms to the NKF-ASN Task Force Recommendations. Result Comment: Enema mated GFR was calculated using the 2020 CKD-EPI creatinine equation. Performed By: #### 4 [id number] ####[facility] [address] [place], [place] [address] Huber Prado M.D. [id number] Glucose [Mass/Vol] 105 mg/dL High 65-99 [facility] Comment on above: Order Comment: [facility] has implemented the eGFR calculation approach that does not have a coefficient for race that conforms to the NKF-ASN Task Force Recommendations. Performed By: #### 4 [id number] ####[facility] [address] [place], [place] [address] Huber Prado M.D. [id number] HCO3 (Bld) [Moles/Vol] 23 mmol/L Normal 21-32 [facility] Comment on above: Order Comment: [facility] has implemented the eGFR calculation approach that does not have a coefficient for race that conforms to the NKF-ASN Task Force Recommendations. Performed By: #### 4 6126 ####[facility] [address] [place] [address] 28584 Huber Prado M.D. [id number] Potassium [Moles/Vol] 4.2 mmol/L Normal 3.5-5.1 [facility] Comment on above: Order Comment: [facility] has implemented the eGFR calculation approach that does not have a coefficient for race that conforms to the NKF-ASN Task Force Recommendations. Performed By: #### 4 6126 ####[facility] [address] [place], [place] [address] Huber Prado M.D. [id number] Protein [Mass/Vol] 7.3 g/dL Normal 6.0-8.0 [facility] Comment on above: Order Comment: [facility] has implemented the eGFR calculation approach that does not have a coefficient for race that conforms to the NKF-ASN Task Force Recommendations. Performed By: #### 4 [id number] ####[facility] [address] [place], [place] [address] Huber Prado M.D. [id number] Sodium [Moles/Vol] 144 mmol/L Normal 135-145 [facility] Comment on above: Order Comment: [facility] has implemented the eGFR calculation approach that does not have a coefficient for race that conforms to the NKF-ASN Task Force Recommendations. Performed By: #### 4 [id number] ####[facility] [address] [place], [place] [address] Huber Prado M.D. [id number] Urea nitrogen [Mass/Vol] 33 mg/dL High 8-25 [facility] Comment on above: Order Comment: [facility] has implemented the eGFR calculation approach that does not have a coefficient for race that conforms to the NKF-ASN Task Force Recommendations. Performed By: #### 4 [id number] ####[facility] [address] [place] [address] 73024 Huber Prado M.D. [id number] Urea nitrogen/Creatinine [Mass ratio] 28.9 mg/mg High 10.0-20.0 [facility] Comment on above: Order Comment: [facility] has implemented the eGFR calculation approach that does not have a coefficient for race that conforms to the NKF-ASN Task Force Recommendations. Performed By: #### 4 [id number] ####[facility] [address] [place], [place] [address] Huber Prado M.D. [id number] CONSULTon 05-12-2024 CONSULT Normal [facility] PHOSPHORUSon 05-12-2024 Phosphate [Mass/Vol] 2.9 mg/dL Normal 2.7-4.5 [facility] Comment on above: Performed By: #### 4 [id number] ####[facility] [address] [place] [address] Huber Prado M.D. [id number] POC GLUCOSE - [facility] 024 Glucose [Mass/Vol] 118 mg/dL High [address] [place] [address] Comment on above: Performed By: #### 4 [id number] ####[facility] [address] [place] [address] [id number] [facility] Glucose [Mass/Vol] 117 mg/dL High [address] [place] [address] Comment on above: Performed By: #### 4 6932 ####[facility] [address] [place] [address] [id number] [facility] Glucose [Mass/Vol] 155 mg/dL [address] Comment on above: Performed By: #### 4 [id number] ####[facility] [address] [place] [address] [id number] [facility] Glucose [Mass/Vol] 127 mg/dL [address] Comment on above: Performed By: #### 4 [id number] ####[facility] [address] [place] [address] [id number] [facility] Glucose [Mass/Vol] 121 mg/dL [address] Comment on above: Performed By: #### 4 6932 ####[facility] [address] [place] [address] [id number] [facility] CBC WITH AUTO DIFFERENTIALon 05-11-2024 AUTO NRBC 0.0 % Normal [facility] Comment on above: Performed By: #### L [id number] ####[facility] [address] [place] [address] Huber Prado M.D. [id number] AUTO NRBC ABS COUNT 0.00 K/mcL Normal 0.00-0.00 [facility] Comment on above: Performed By: #### L [id number] ####[facility] [address] [place] [address] Huber Prado M.D. [id number] BASOPHILS ABSOLUTE COUNT 0.13 K/mcL Normal 0.00-0.30 [facility] Comment on above: Performed By: #### L [id number] ####[facility] [address] [place] [address] Huber Prado M.D. [id number] Basophils/100 WBC (Bld) 1.6 % Normal [facility] Comment on above: Performed By: #### L [id number] ####[facility] [address] [place] [address] Huber Prado M.D. [id number] Eosinophils (Bld) [#/Vol] 0.23 10*3/uL Normal 0.00-0.50 [facility] Comment on above: Performed By: #### L [id number] ####[facility] [address] [place] [address] Huber Prado M.D. [id number] Eosinophils/100 WBC (Bld) 2.7 % Normal [facility] Comment on above: Performed By: #### L [id number] ####[facility] [address] [place] [address] Huber Prado M.D. [id number] Erythrocyte distribution width (RBC) [Ratio] 14.3 % Normal 11.6-14.8 [facility] Comment on above: Performed By: #### L [id number] ####[facility] [address] [place] [address] Huber Prado M.D. [id number] Hematocrit (Bld) [Volume fraction] 26.0 % Low 36.0-46.0 [facility] Comment on above: Performed By: #### L [id number] ####[facility] [address] [place] [address] Huber Prado M.D. [id number] Hemoglobin (Bld) [Mass/Vol] 8.5 g/dL Low 12.0-16.0 [facility] Comment on above: Performed By: #### L [id number] ####[facility] [address] [place] [address] Huber Prado M.D. [id number] IG ABSOLUTE 0.25 K/mcL Normal 0.00-0.30 [facility] Comment on above: Performed By: #### L [id number] ####[facility] [address] [place] [address] Huber Prado M.D. [id number] IG PERCENT 3.00 % Normal [facility] Comment on above: Result Comment: The IG parameter is the percentage of metamyelocytes, myelocytes and promyelocytes. An immature granulocyte count (IG) of 1% or more suggests the possibility of infection, an IG count of 3% is very likely related to an infection. Performed By: #### L [id number] ####[facility] [address] [place] [address] Huber Prado M.D. [id number] Lymphocytes (Bld) [#/Vol] 2.40 10*3/uL Normal 0.90-4.00 [facility] Comment on above: Performed By: #### L [id number] ####[facility] [address] [place] [address] Huber Prado M.D. [id number] Lymphocytes/100 WBC (Bld) 28.7 % Normal [facility] Comment on above: Performed By: #### L [id number] ####[facility] [facility] [address] [place] [address] Huber Prado M.D. [id number] MCH (RBC) [Entitic mass] 30.5 pg Normal 26.0-34.0 [facility] Comment on above: Performed By: #### L [id number] ####[facility] [address] [place] [address] Huber Prado M.D. [id number] MCV (RBC) [Entitic vol] 93.2 fL Normal 80.0-100.0 [facility] Comment on above: Performed By: #### Tasha [id number] ####[facility] [address] [place] [address] Huber Prado M.D. [id number] MEAN CORPUSCULAR HEMOGLOBIN CONC 32.7 g/dL Normal 31.0-37.0 [facility] Comment on above: Performed By: #### Tasha [id number] ####[facility] [address] [place] [address] Huber Prado M.D. [id number] Monocytes (Bld) [#/Vol] 0.78 10*3/uL Normal 0.30-0.90 [facility] Comment on above: Performed By: #### Tasha [id number] ####[facility] [address] [place] [address] Huber Prado M.D. [id number] Monocytes/100 WBC (Bld) 9.3 % Normal [facility] Comment on above: Performed By: #### L [id number] ####[facility] [address] [place], [place] [id number] Huber Prado M.D. [id number] NEUTROPHILS ABSOLUTE COUNT 4.58 K/mcL Normal 1.70-7.00 [facility] Comment on above: Performed By: #### L [id number] ####[facility] [address] [place] [address] Huber Prado M.D. [id number] Neutrophils/100 WBC (Bld) 54.7 % Normal [facility] Comment on above: Performed By: #### L [id number] ####[facility] [address] [place], [place] [id number] Huber Prado M.D. [id number] Platelet mean volume (Bld) [Entitic vol] 11.4 fL Normal 9.4-12.4 [facility] Comment on above: Performed By: #### L [id number] ####[facility] [address] [place] [address] Huber Prado M.D. [id number] Platelets (Bld) [#/Vol] 284 10*3/uL Normal 150-400 [facility] Comment on above: Performed By: #### L [id number] ####[facility] [address] [place] [address] Huber Prado M.D. [id number] RBC (Bld) [#/Vol] 2.79 10*6/uL Low 4.00-5.20 [facility] Comment on above: Performed By: #### L [id number] ####[facility] [address] [place], [place] [id number] Huber Prado M.D. [id number] WBC (Bld) [#/Vol] 8.75 10*3/uL Normal 4.50-11.00 [facility] Comment on above: Performed By: #### L [id number] ####[facility] [address] [place] [address] Huber Prado M.D. [id number] COMPREHENSIVE METABOLIC PANE Nate 05-11-2024 Albumin [Mass/Vol] 3.7 g/dL Normal 3.2-5.2 [facility] Comment on above: Order Comment: [facility] has implemented the eGFR calculation approach that does not have a coefficient for race that conforms to the NKF-ASN Task Force Recommendations. Performed By: #### [id number] ####[facility] [address] [place], [place] [id number] Huber Prado M.D. [id number] ALP [Catalytic activity/Vol] 153 U/L High 40-140 [facility] Comment on above: Order Comment: [facility] has implemented the eGFR calculation approach that does not have a coefficient for race that conforms to the NKF-ASN Task Force Recommendations. Performed By: #### 4 [id number] ####[facility] [address] [place], [place] [id number] Huber Prado M.D. [id number] ALT [Catalytic activity/Vol] 25 U/L Normal 0-35 U/L [facility] Comment on above: Order Comment: [facility] has implemented the eGFR calculation approach that does not have a coefficient for race that conforms to the NKF-ASN Task Force Recommendations. Performed By: #### 4 [id number] ####[facility] [address] [place], [place] [address] Huber Prado M.D. [id number] Anion gap [Moles/Vol] 17 mmol/L Normal 10-20 [facility] Comment on above: Order Comment: [facility] has implemented the eGFR calculation approach that does not have a coefficient for race that conforms to the NKF-ASN Task Force Recommendations. Performed By: #### 4 [id number] ####[facility] [address] [place], [place] [id number] Huber Prado M.D. [id number] AST [Catalytic activity/Vol] 14 U/L Normal 0-35 U/L [facility] Comment on above: Order Comment: [facility] has implemented the eGFR calculation approach that does not have a coefficient for race that conforms to the NKF-ASN Task Force Recommendations. Performed By: #### 4 [id number] ####[facility] [address] [place], [place] [address] Huber Prado M.D. [id number] BILIRUBIN TOTAL < Normal 0.0-1.3 [facility] Comment on above: Order Comment: [facility] has implemented the eGFR calculation approach that does not have a coefficient for race that conforms to the NKF-ASN Task Force Recommendations. Performed By: #### 4 [id number] ####[facility] [address] [place] [address] Huber Prado M.D. [id number] Calcium [Mass/Vol] 9.5 mg/dL Normal 8.4-10.2 [facility] Comment on above: Order Comment: [facility] has implemented the eGFR calculation approach that does not have a coefficient for race that conforms to the NKF-ASN Task Force Recommendations. Performed By: #### 4 [id number] ####[facility] [address] [place] [address] Huber Prado M.D. [id number] Chloride [Moles/Vol] 103 mmol/L Normal 98-108 [facility] Comment on above: Order Comment: [facility] has implemented the eGFR calculation approach that does not have a coefficient for race that conforms to the NKF-ASN Task Force Recommendations. Performed By: #### 4 [id number] ####[facility] [address] [place] [address] Huber Prado M.D. [id number] Creatinine [Mass/Vol] 1.04 mg/dL Normal 0.40-1.10 [facility] Comment on above: Order Comment: [facility] has implemented the eGFR calculation approach that does not have a coefficient for race that conforms to the NKF-ASN Task Force Recommendations. Performed By: #### 4 [id number] ####[facility] [address] [place] [address] Huber Prado M.D. [id number] EGFR 72 mL/min/1.73 m2 Normal >=60 [facility] Comment on above: Order Comment: [facility] has implemented the eGFR calculation approach that does not have a coefficient for race that conforms to the NKF-ASN Task Force Recommendations. Result Comment: Neema mated GFR was calculated using the 2020 CKD-EPI creatinine equation. Performed By: #### 4 [id number] ####[facility] [address] [place], [place] [address] Huber Prado M.D. [id number] Glucose [Mass/Vol] 109 mg/dL High 65-99 [facility] Comment on above: Order Comment: [facility] has implemented the eGFR calculation approach that does not have a coefficient for race that conforms to the NKF-ASN Task Force Recommendations. Performed By: #### 4 [id number] ####[facility] [address] [place] [address] Huber Prado M.D. [id number] HCO3 (Bld) [Moles/Vol] 24 mmol/L Normal 21-32 [facility] Comment on above: Order Comment: [facility] has implemented the eGFR calculation approach that does not have a coefficient for race that conforms to the NKF-ASN Task Force Recommendations. Performed By: #### 4 [id number] ####[facility] [address] [place] [address] Huber Prado M.D. [id number] Potassium [Moles/Vol] 4.0 mmol/L Normal 3.5-5.1 [facility] Comment on above: Order Comment: [facility] has implemented the eGFR calculation approach that does not have a coefficient for race that conforms to the NKF-ASN Task Force Recommendations. Performed By: #### 4 [id number] ####[facility] [address] [place] [address] 1945[address] Huber Prado M.D. [id number] Protein [Mass/Vol] 6.8 g/dL Normal 6.0-8.0 [facility] Comment on above: Order Comment: [facility] has implemented the eGFR calculation approach that does not have a coefficient for race that conforms to the NKF-ASN Task Force Recommendations. Performed By: #### 4 [id number] ####[facility] [address] [place] [address] Huber Prado M.D. [id number] Sodium [Moles/Vol] 140 mmol/L Normal 135-145 [facility] Comment on above: Order Comment: [facility] has implemented the eGFR calculation approach that does not have a coefficient for race that conforms to the NKF-ASN Task Force Recommendations. Performed By: #### 4 [id number] ####[facility] [address] [place] [address] Huber Prado M.D. [id number] Urea nitrogen [Mass/Vol] 36 mg/dL High 8-25 [facility] Comment on above: Order Comment: [facility] has implemented the eGFR calculation approach that does not have a coefficient for race that conforms to the NKF-ASN Task Force Recommendations. Performed By: #### 4 [id number] ####[facility] [address] [place] [address] Huber Prado M.D. [id number] Urea nitrogen/Creatinine [Mass ratio] 34.6 mg/mg High 10.0-20.0 [facility] Comment on above: Order Comment: [facility] has implemented the eGFR calculation approach that does not have a coefficient for race that conforms to the NKF-ASN Task Force Recommendations. Performed By: #### 4 [id number] ####[facility] [address] [place] [address] Huber Prado M.D. [id number] CONSULTon 05-11-2024 CONSULT Normal [facility] PHOSPHORUSon 05-11-2024 Phosphate [Mass/Vol] 4.0 mg/dL Normal 2.7-4.5 [facility] Comment on above: Performed By: #### 4 [id number] ####[facility] [address] [place] [address] Huber Prado M.D. [id number] POC GLUCOSE - [facility] 024 Glucose [Mass/Vol] 132 mg/dL High [address] [place] [address] Comment on above: Performed By: #### 4 [id number] ####[facility] [address] [place] [address] [id number] [facility] Glucose [Mass/Vol] 126 mg/dL [address] Comment on above: Performed By: #### 4 [id number] ####[facility] [address] [place] [address] [id number] [facility] Glucose [Mass/Vol] 114 mg/dL [address] Comment on above: Performed By: #### 4 [id number] ####[facility] [address] [place] [address] [id number] [facility] Glucose [Mass/Vol] 111 mg/dL [address] Comment on above: Performed By: #### 4 [id number] ####[facility] [address] [place] [address] [id number] [facility] Glucose [Mass/Vol] 137 mg/dL [address] Comment on above: Performed By: #### 4 [id number] ####[facility] [address] [place] [address] [id number] [facility] Glucose [Mass/Vol] 110 mg/dL [address] Comment on above: Performed By: #### 4 [id number] ####[facility] [address] [place] [address] [id number] [facility] POTASSIUM LEVELon 05-11-2024 Potassium [Moles/Vol] 4.3 mmol/L Normal 3.5-5.1 [facility] Comment on above: Performed By: #### 4 [id number] ####[facility] [address] [place] [address] Huber Prado M.D. [id number] CBC WITH AUTO DIFFERENTIALon 05-10-2024 AUTO NRBC 0.0 % Normal [facility] Comment on above: Performed By: #### L [id number] ####[facility] [address] [place] [address] Huber Prado M.D. [id number] AUTO NRBC ABS COUNT 0.00 K/mcL Normal 0.00-0.00 [facility] Comment on above: Performed By: #### Tasha [id number] ####[facility] [address] [place] [address] Huber Prado M.D. [id number] BASOPHILS ABSOLUTE COUNT 0.13 K/mcL Normal 0.00-0.30 [facility] Comment on above: Performed By: #### L [id number] ####[facility] [address] [place] [address] Huber Prado M.D. [id number] Basophils/100 WBC (Bld) 1.2 % Normal [facility] Comment on above: Performed By: #### Tasha [id number] ####[facility] [address] [place] [address] Huber Prado M.D. [id number] Eosinophils (Bld) [#/Vol] 0.35 10*3/uL Normal 0.00-0.50 [facility] Comment on above: Performed By: #### L [id number] ####[facility] [address] [place] [address] Huber Prado M.D. [id number] Eosinophils/100 WBC (Bld) 3.2 % Normal [facility] Comment on above: Performed By: #### L [id number] ####[facility] [address] [place] [address] Huber Prado M.D. [id number] Erythrocyte distribution width (RBC) [Ratio] 14.5 % Normal 11.6-14.8 [facility] Comment on above: Performed By: #### L [id number] ####[facility] [address] [place] [address] Huber Prado M.D. [id number] Hematocrit (Bld) [Volume fraction] 25.2 % Low 36.0-46.0 [facility] Comment on above: Performed By: #### L [id number] ####[facility] [address] [place] [address] Huber Prado M.D. [id number] Hemoglobin (Bld) [Mass/Vol] 8.4 g/dL Low 12.0-16.0 [facility] Comment on above: Performed By: #### L [id number] ####[facility] [address] [place] [address] Huber Prado M.D. [id number] IG ABSOLUTE 0.21 K/mcL Normal 0.00-0.30 [facility] Comment on above: Performed By: #### L [id number] ####[facility] [address] [place] [address] Huber Prado M.D. [id number] IG PERCENT 1.90 % Normal [facility] Comment on above: Result Comment: The IG parameter is the percentage of metamyelocytes, myelocytes and promyelocytes. An immature granulocyte count (IG) of 1% or more suggests the possibility of infection, an IG count of 3% is very likely related to an infection. Performed By: #### L [id number] ####[facility] [address] [place] [address] Huber Prado M.D. [id number] Lymphocytes (Bld) [#/Vol] 2.44 10*3/uL Normal 0.90-4.00 [facility] Comment on above: Performed By: #### L [id number] ####[facility] [address] [place] [address] Huber Prado M.D. [id number] Lymphocytes/100 WBC (Bld) 22.4 % Normal [facility] Comment on above: Performed By: #### Tasha [id number] ####[facility] [address] [place] [address] Huber Prado M.D. [id number] MCH (RBC) [Entitic mass] 30.8 pg Normal 26.0-34.0 [facility] Comment on above: Performed By: #### L [id number] ####[facility] [address] [place] [address] Huber Prado M.D. [id number] MCV (RBC) [Entitic vol] 92.3 fL Normal 80.0-100.0 [facility] Comment on above: Performed By: #### Tasha [id number] ####[facility] [address] [place] [address] Huber Prado M.D. [id number] MEAN CORPUSCULAR HEMOGLOBIN CONC 33.3 g/dL Normal 31.0-37.0 [facility] Comment on above: Performed By: #### Tasha [id number] ####[facility] [address] [place] [address] Huber Prado M.D. [id number] Monocytes (Bld) [#/Vol] 0.80 10*3/uL Normal 0.30-0.90 [facility] Comment on above: Performed By: #### L [id number] ####[facility] [address] [place] [address] Huber Prado M.D. [id number] Monocytes/100 WBC (Bld) 7.3 % Normal [facility] Comment on above: Performed By: #### L [id number] ####[facility] [address] [place] [address] Huber Prado M.D. [id number] NEUTROPHILS ABSOLUTE COUNT 6.98 K/mcL Normal 1.70-7.00 [facility] Comment on above: Performed By: #### Tasha [id number] ####[facility] [address] [place], [place] [address]Nora Prado M.D. [id number] Neutrophils/100 WBC (Bld) 64.0 % Normal [facility] Comment on above: Performed By: #### Tasha [id number] ####[facility] [address] [place] [address] Huber Prado M.D. [id number] Platelet mean volume (Bld) [Entitic vol] 10.7 fL Normal 9.4-12.4 [facility] Comment on above: Performed By: #### Tasha [id number] ####[facility] [address] [place] [address] Huber Prado M.D. [id number] Platelets (Bld) [#/Vol] 383 10*3/uL Normal 150-400 [facility] Comment on above: Performed By: #### Tasha [id number] ####[facility] [address] [place], [place] [address]Nora Prado M.D. [id number] RBC (Bld) [#/Vol] 2.73 10*6/uL Low 4.00-5.20 [facility] Comment on above: Performed By: #### Tasha [id number] ####[facility] [address] [place], [place] [id number] Huber Prado M.D. [id number] WBC (Bld) [#/Vol] 10.91 10*3/uL Normal 4.50-11.00 [facility] Comment on above: Performed By: #### L [id number] ####[facility] [address] [place], [place] [address]Nora Prado M.D. [id number] COMPREHENSIVE METABOLIC PANE Nate 05-10-2024 Albumin [Mass/Vol] 3.7 g/dL Normal 3.2-5.2 [facility] Comment on above: Order Comment: [facility] has implemented the eGFR calculation approach that does not have a coefficient for race that conforms to the NKF-ASN Task Force Recommendations. Performed By: #### 4 [id number] ####[facility] [address] [place], [place] [id number] Huber Prado M.D. [id number] ALP [Catalytic activity/Vol] 162 U/L High 40-140 [facility] Comment on above: Order Comment: [facility] has implemented the eGFR calculation approach that does not have a coefficient for race that conforms to the NKF-ASN Task Force Recommendations. Performed By: #### 4 [id number] ####[facility] [address] [place], [place] [address] Huber Prado M.D. [id number] ALT [Catalytic activity/Vol] 27 U/L Normal 0-35 U/L [facility] Comment on above: Order Comment: [facility] has implemented the eGFR calculation approach that does not have a coefficient for race that conforms to the NKF-ASN Task Force Recommendations. Performed By: #### 4 [id number] ####[facility] [address] [place], [place] [address] Huber Pardo M.D. [id number] Anion gap [Moles/Vol] 20 mmol/L Normal 10-20 [facility] Comment on above: Order Comment: [facility] has implemented the eGFR calculation approach that does not have a coefficient for race that conforms to the NKF-ASN Task Force Recommendations. Performed By: #### 4 [id number] ####[facility] [address] [place], [place] [address] Huber Prado M.D. [id number] AST [Catalytic activity/Vol] 16 U/L Normal 0-35 U/L [facility] Comment on above: Order Comment: [facility] has implemented the eGFR calculation approach that does not have a coefficient for race that conforms to the NKF-ASN Task Force Recommendations. Performed By: #### 4 [id number] ####[facility] [address] [place], [place] [address] Huber Prado M.D. [id number] BILIRUBIN TOTAL < Normal 0.0-1.3 [facility] Comment on above: Order Comment: [facility] has implemented the eGFR calculation approach that does not have a coefficient for race that conforms to the NKF-ASN Task Force Recommendations. Performed By: #### 4 [id number] ####[facility] [address] [place] [address] Huber Prado M.D. [id number] Calcium [Mass/Vol] 9.9 mg/dL Normal 8.4-10.2 [facility] Comment on above: Order Comment: [facility] has implemented the eGFR calculation approach that does not have a coefficient for race that conforms to the NKF-ASN Task Force Recommendations. Performed By: #### 4 [id number] ####[facility] [address] [place] [address] Huber Prado M.D. [id number] Chloride [Moles/Vol] 101 mmol/L Normal 98-108 [facility] Comment on above: Order Comment: [facility] has implemented the eGFR calculation approach that does not have a coefficient for race that conforms to the NKF-ASN Task Force Recommendations. Performed By: #### 4 [id number] ####[facility] [address] [place] [address]2978 Huber Prado M.D. [id number] Creatinine [Mass/Vol] 0.94 mg/dL Normal 0.40-1.10 [facility] Comment on above: Order Comment: [facility] has implemented the eGFR calculation approach that does not have a coefficient for race that conforms to the NKF-ASN Task Force Recommendations. Performed By: #### 4 [id number] ####[facility] [address] [place] [address]8119 Huber Prado M.D. [id number] EGFR 82 mL/min/1.73 m2 Normal >=60 [facility] Comment on above: Order Comment: [facility] has implemented the eGFR calculation approach that does not have a coefficient for race that conforms to the NKF-ASN Task Force Recommendations. Result Comment: Neema mated GFR was calculated using the 2020 CKD-EPI creatinine equation. Performed By: #### 4 [id number] ####[facility] [address] [place] [address] Huber Prado M.D. [id number] Glucose [Mass/Vol] 96 mg/dL Normal 65-99 [facility] Comment on above: Order Comment: [facility] has implemented the eGFR calculation approach that does not have a coefficient for race that conforms to the NKF-ASN Task Force Recommendations. Performed By: #### 4 [id number] ####[facility] [address] [place] [address] Huber Prado M.D. [id number] HCO3 (Bld) [Moles/Vol] 24 mmol/L Normal 21-32 [facility] Comment on above: Order Comment: [facility] has implemented the eGFR calculation approach that does not have a coefficient for race that conforms to the NKF-ASN Task Force Recommendations. Performed By: #### 4 [id number] ####[facility] [address] [place] [address] 65410 Huber Prado M.D. [id number] Potassium [Moles/Vol] 3.8 mmol/L Normal 3.5-5.1 [facility] Comment on above: Order Comment: [facility] has implemented the eGFR calculation approach that does not have a coefficient for race that conforms to the NKF-ASN Task Force Recommendations. Performed By: #### 4 [id number] ####[facility] [address] [place] [address] 50108 Huber Prado M.D. [id number] Protein [Mass/Vol] 7.3 g/dL Normal 6.0-8.0 [facility] Comment on above: Order Comment: [facility] has implemented the eGFR calculation approach that does not have a coefficient for race that conforms to the NKF-ASN Task Force Recommendations. Performed By: #### 4 6126 ####[facility] [address] [place] [address] [id number] Huber Prado M.D. [id number] Sodium [Moles/Vol] 141 mmol/L Normal 135-145 [facility] Comment on above: Order Comment: [facility] has implemented the eGFR calculation approach that does not have a coefficient for race that conforms to the NKF-ASN Task Force Recommendations. Performed By: #### 4 [id number] ####[facility] [address] [place] [address] 72406 Huber Prado M.D. [id number] Urea nitrogen [Mass/Vol] 37 mg/dL High 8-25 [facility] Comment on above: Order Comment: [facility] has implemented the eGFR calculation approach that does not have a coefficient for race that conforms to the NKF-ASN Task Force Recommendations. Performed By: #### 4 6126 ####[facility] [address] [place] [address] 30323 Huber Prado M.D. [id number] Urea nitrogen/Creatinine [Mass ratio] 39.4 mg/mg High 10.0-20.0 [facility] Comment on above: Order Comment: [facility] has implemented the eGFR calculation approach that does not have a coefficient for race that conforms to the NKF-ASN Task Force Recommendations. Performed By: #### 4 [id number] ####[facility] [address] [place] [address] 67270 Huber Prado M.D. [id number] PHOSPHORUSon 05-10-2024 Phosphate [Mass/Vol] 4.5 mg/dL Normal 2.7-4.5 [facility] Comment on above: Performed By: #### 4 6299 ####[facility] [address] [place] [address] Huber Prado M.D. [id number] POC GLUCOSE - [facility] 024 Glucose [Mass/Vol] 110 mg/dL High [address] [place] [address] Comment on above: Performed By: #### 4 6979 ####[facility] [address] [place] [address] [id number] [facility] Glucose [Mass/Vol] 136 mg/dL [address] Comment on above: Performed By: #### 4 6932 ####[facility] [address] [place] [address] [id number] [facility] Glucose [Mass/Vol] 126 mg/dL [address] Comment on above: Performed By: #### 4 6932 ####[facility] [address] [place] [address] [id number] [facility] Glucose [Mass/Vol] 124 mg/dL [address] Comment on above: Performed By: #### 4 6932 ####[facility] [address] [place] [address] [id number] [facility] Glucose [Mass/Vol] 115 mg/dL [address] Comment on above: Performed By: #### 4 5661 ####[facility] [address] [place] [address] [id number] [facility] Glucose [Mass/Vol] 100 mg/dL [address] Comment on above: Performed By: #### 4 2648 ####[facility] [address] [place] [address] [id number] [facility] Glucose [Mass/Vol] 108 mg/dL [address] Comment on above: Performed By: #### 4 0183 ####[facility] [address] [place] [address] [id number] [facility] POTASSIUM LEVELon 05-10-2024 Potassium [Moles/Vol] 4.9 mmol/L Normal 3.5-5.1 [facility] Comment on above: Result Comment: Slig htly Hemolyzed Performed By: #### 4 6351 ####[facility] [address] [place] [address] Huber Prado M.D. [id number] BLOOD GAS, VENOUSon 05-09-20 BASE EXCESS, VENOUS 0.9 Normal -2.0-2.0 [facility] Comment on above: Performed By: #### 4 6792 ####[facility] [address] [place] [address] Huber Prado M.D. [id number] HCO3 (Bld) [Moles/Vol] 25.4 mmol/L Normal 24.0-28.0 [facility] Comment on above: Performed By: #### 4 6710 ####[facility] [address] [place], [place] [id number] Huber Prado M.D. [id number] Hematocrit (Bld) [Volume fraction] 28.2 % Low 36.0-46.0 [facility] Comment on above: Performed By: #### 4 7605 ####[facility] [address] [place], [place] [id number] Huber Prado M.D. [id number] Hemoglobin (Bld) [Mass/Vol] 9.1 g/dL Low 12.0-16.0 [facility] Comment on above: Performed By: #### 4 1082 ####[facility] [address] [place], [place] [id number] Huber Prado M.D. [id number] Oxygen saturation in Blood 99.1 % High 40.0-70.0 [facility] Comment on above: Performed By: #### 4 6733 ####[facility] [address] [place], [place] [id number] Huber Prado M.D. [id number] PCO2 VENOUS 42.6 mm Hg Normal 41.0-51.0 [facility] Comment on above: Performed By: #### 4 6733 ####[facility] [address] [place] [address] Huber Prado M.D. [id number] PH VENOUS 7.39 Normal 7.32-7.42 [facility] Comment on above: Performed By: #### 4 6733 ####[facility] [address] [place] [address] Huber Prado M.D. [id number] PO2 VENOUS 122 mm Hg High 25-40 [facility] Comment on above: Performed By: #### 4 6733 ####[facility] [address] [place] [address] Huber Prado M.D. [id number] CBC WITH AUTO DIFFERENTIALon 05-09-2024 AUTO NRBC 0.0 % Normal [facility] Comment on above: Performed By: #### L [id number] ####[facility] [address] [place], [place] [id number] Huber Prado M.D. [id number] AUTO NRBC ABS COUNT 0.00 K/mcL Normal 0.00-0.00 [facility] Comment on above: Performed By: #### L [id number] ####[facility] [address] [place], [place] [id number] Huber Prado M.D. [id number] BASOPHILS ABSOLUTE COUNT 0.12 K/mcL Normal 0.00-0.30 [facility] Comment on above: Performed By: #### L [id number] ####[facility] [address] [place] [address] Huber Prado M.D. [id number] Basophils/100 WBC (Bld) 1.1 % Normal [facility] Comment on above: Performed By: #### L [id number] ####[facility] [address] [place] [address] Huber Prado M.D. [id number] Eosinophils (Bld) [#/Vol] 0.36 10*3/uL Normal 0.00-0.50 [facility] Comment on above: Performed By: #### L [id number] ####[facility] [address] [place] [address] Huber Prado M.D. [id number] Eosinophils/100 WBC (Bld) 3.3 % Normal [facility] Comment on above: Performed By: #### L [id number] ####[facility] [address] [place] [address] Huber Prado M.D. [id number] Erythrocyte distribution width (RBC) [Ratio] 14.6 % Normal 11.6-14.8 [facility] Comment on above: Performed By: #### L [id number] ####[facility] [address] [place] [address] Huber Prado M.D. [id number] Hematocrit (Bld) [Volume fraction] 25.0 % Low 36.0-46.0 [facility] Comment on above: Performed By: #### L [id number] ####[facility] [address] [place] [address] Huber Prado M.D. [id number] Hemoglobin (Bld) [Mass/Vol] 8.2 g/dL Low 12.0-16.0 [facility] Comment on above: Performed By: #### L [id number] ####[facility] [address] [place] [address] Huber Prado M.D. [id number] IG ABSOLUTE 0.16 K/mcL Normal 0.00-0.30 [facility] Comment on above: Performed By: #### L [id number] ####[facility] [address] [place], [place] [id number] Huber Prado M.D. [id number] IG PERCENT 1.50 % Normal [facility] Comment on above: Result Comment: The IG parameter is the percentage of metamyelocytes, myelocytes and promyelocytes. An immature granulocyte count (IG) of 1% or more suggests the possibility of infection, an IG count of 3% is very likely related to an infection. Performed By: #### L [id number] ####[facility] [address] [place] [address] Huber Prado M.D. [id number] Lymphocytes (Bld) [#/Vol] 2.26 10*3/uL Normal 0.90-4.00 [facility] Comment on above: Performed By: #### Tasha [id number] ####[facility] [address] [place] [address] Huber Prado M.D. [id number] Lymphocytes/100 WBC (Bld) 20.8 % Normal [facility] Comment on above: Performed By: #### Tasha [id number] ####[facility] [address] [place] [address] Huber Prado M.D. [id number] MCH (RBC) [Entitic mass] 30.9 pg Normal 26.0-34.0 [facility] Comment on above: Performed By: #### L [id number] ####[facility] [address] [place], [place] [id number] Huber Prado M.D. [id number] MCV (RBC) [Entitic vol] 94.3 fL Normal 80.0-100.0 [facility] Comment on above: Performed By: #### L [id number] ####[facility] [address] [place] [address] Huber Prado M.D. [id number] MEAN CORPUSCULAR HEMOGLOBIN CONC 32.8 g/dL Normal 31.0-37.0 [facility] Comment on above: Performed By: #### Tasha [id number] ####[facility] [address] [place] [address] Huber Prado M.D. [id number] Monocytes (Bld) [#/Vol] 0.66 10*3/uL Normal 0.30-0.90 [facility] Comment on above: Performed By: #### Tasha [id number] ####[facility] [address] [place] [address] Huber Prado M.D. [id number] Monocytes/100 WBC (Bld) 6.1 % Normal [facility] Comment on above: Performed By: #### Tasha [id number] ####[facility] [address] [place] [address] Huber Prado M.D. [id number] NEUTROPHILS ABSOLUTE COUNT 7.30 K/mcL High 1.70-7.00 [facility] Comment on above: Performed By: #### Tasha [id number] ####[facility] [address] [place], [place] [id number] Huber Prado M.D. [id number] Neutrophils/100 WBC (Bld) 67.2 % Normal [facility] Comment on above: Performed By: #### Tasha [id number] ####[facility] [address] [place], [place] [id number] Huber Prado M.D. [id number] Platelet mean volume (Bld) [Entitic vol] 11.2 fL Normal 9.4-12.4 [facility] Comment on above: Performed By: #### Tasha [id number] ####[facility] [address] [place] [address] Huber Prado M.D. [id number] Platelets (Bld) [#/Vol] 374 10*3/uL Normal 150-400 [facility] Comment on above: Performed By: #### L [id number] ####[facility] [address] [place] [address] 75052 Huber Prado M.D. [id number] RBC (Bld) [#/Vol] 2.65 10*6/uL Low 4.00-5.20 [facility] Comment on above: Performed By: #### L [id number] ####[facility] [address] [place] [address] 20139 Huber Prado M.D. [id number] WBC (Bld) [#/Vol] 10.86 10*3/uL Normal 4.50-11.00 [facility] Comment on above: Performed By: #### L [id number] ####[facility] [address] [place] [address] 43268 Huber Prado M.D. [id number] COMPREHENSIVE METABOLIC PANE Nate 05-09-2024 Albumin [Mass/Vol] 3.5 g/dL Normal 3.2-5.2 [facility] Comment on above: Order Comment: [facility] has implemented the eGFR calculation approach that does not have a coefficient for race that conforms to the NKF-ASN Task Force Recommendations. Performed By: #### 4 6126 ####[facility] [address] [place] [address] 82656 Huber Prado M.D. [id number] ALP [Catalytic activity/Vol] 153 U/L High 40-140 [facility] Comment on above: Order Comment: [facility] has implemented the eGFR calculation approach that does not have a coefficient for race that conforms to the NKF-ASN Task Force Recommendations. Performed By: #### 4 6126 ####[facility] [address] [place] [address] 72228 Huber Prado M.D. [id number] ALT [Catalytic activity/Vol] 23 U/L Normal 0-35 U/L [facility] Comment on above: Order Comment: [facility] has implemented the eGFR calculation approach that does not have a coefficient for race that conforms to the NKF-ASN Task Force Recommendations. Performed By: #### 4 6126 ####[facility] [address] [place], [place] [address] Huber Prado M.D. [id number] Anion gap [Moles/Vol] 18 mmol/L Normal 10-20 [facility] Comment on above: Order Comment: [facility] has implemented the eGFR calculation approach that does not have a coefficient for race that conforms to the NKF-ASN Task Force Recommendations. Performed By: #### 4 6126 ####[facility] [address] [place], [place] [address] Huber Prado M.D. [id number] AST [Catalytic activity/Vol] 15 U/L Normal 0-35 U/L [facility] Comment on above: Order Comment: [facility] has implemented the eGFR calculation approach that does not have a coefficient for race that conforms to the NKF-ASN Task Force Recommendations. Performed By: #### 4 6126 ####[facility] [address] [place], [place] [address] Huber Prado M.D. [id number] BILIRUBIN TOTAL < Normal 0.0-1.3 [facility] Comment on above: Order Comment: [facility] has implemented the eGFR calculation approach that does not have a coefficient for race that conforms to the NKF-ASN Task Force Recommendations. Performed By: #### 4 6126 ####[facility] [address] [place] [address] 10786 Huber Prado M.D. [id number] Calcium [Mass/Vol] 9.5 mg/dL Normal 8.4-10.2 [facility] Comment on above: Order Comment: [facility] has implemented the eGFR calculation approach that does not have a coefficient for race that conforms to the NKF-ASN Task Force Recommendations. Performed By: #### 4 6126 ####[facility] [address] [place] [address] 63302 Huber Prado M.D. [id number] Chloride [Moles/Vol] 104 mmol/L Normal 98-108 [facility] Comment on above: Order Comment: [facility] has implemented the eGFR calculation approach that does not have a coefficient for race that conforms to the NKF-ASN Task Force Recommendations. Performed By: #### 4 6126 ####[facility] [address] [place], [place] [address] Huber Prado M.D. [id number] Creatinine [Mass/Vol] 1.06 mg/dL Normal 0.40-1.10 [facility] Comment on above: Order Comment: [facility] has implemented the eGFR calculation approach that does not have a coefficient for race that conforms to the NKF-ASN Task Force Recommendations. Performed By: #### 4 6126 ####[facility] [address] [place] [address] 99397 Huber Prado M.D. [id number] EGFR 71 mL/min/1.73 m2 Normal >=60 [facility] Comment on above: Order Comment: [facility] has implemented the eGFR calculation approach that does not have a coefficient for race that conforms to the NKF-ASN Task Force Recommendations. Result Comment: Neema mated GFR was calculated using the 2020 CKD-EPI creatinine equation. Performed By: #### 4 6126 ####[facility] [address] [place] [address] 23586 Huber Prado M.D. [id number] Glucose [Mass/Vol] 124 mg/dL High 65-99 [facility] Comment on above: Order Comment: [facility] has implemented the eGFR calculation approach that does not have a coefficient for race that conforms to the NKF-ASN Task Force Recommendations. Performed By: #### 4 6126 ####[facility] [address] [place] [address] 13756 Huber Prado M.D. [id number] HCO3 (Bld) [Moles/Vol] 22 mmol/L Normal 21-32 [facility] Comment on above: Order Comment: [facility] has implemented the eGFR calculation approach that does not have a coefficient for race that conforms to the NKF-ASN Task Force Recommendations. Performed By: #### 4 6126 ####[facility] [address] [place] [address] 92552 Huber Prado M.D. [id number] Potassium [Moles/Vol] 3.7 mmol/L Normal 3.5-5.1 [facility] Comment on above: Order Comment: [facility] has implemented the eGFR calculation approach that does not have a coefficient for race that conforms to the NKF-ASN Task Force Recommendations. Performed By: #### 4 6126 ####[facility] [address] [place] [address] [id number] Huber Prado M.D. [id number] Protein [Mass/Vol] 6.8 g/dL Normal 6.0-8.0 [facility] Comment on above: Order Comment: [facility] has implemented the eGFR calculation approach that does not have a coefficient for race that conforms to the NKF-ASN Task Force Recommendations. Performed By: #### 4 6126 ####[facility] [address] [place] [address] 34440 Huber Prado M.D. [id number] Sodium [Moles/Vol] 140 mmol/L Normal 135-145 [facility] Comment on above: Order Comment: [facility] has implemented the eGFR calculation approach that does not have a coefficient for race that conforms to the NKF-ASN Task Force Recommendations. Performed By: #### 4 6126 ####[facility] [address] [place] [address] 19430 Huber Prado M.D. [id number] Urea nitrogen [Mass/Vol] 35 mg/dL High 8-25 [facility] Comment on above: Order Comment: [facility] has implemented the eGFR calculation approach that does not have a coefficient for race that conforms to the NKF-ASN Task Force Recommendations. Performed By: #### 4 6126 ####[facility] [address] [place], [place] [id number] Huber Prado M.D. [id number] Urea nitrogen/Creatinine [Mass ratio] 33.0 mg/mg High 10.0-20.0 [facility] Comment on above: Order Comment: [facility] has implemented the eGFR calculation approach that does not have a coefficient for race that conforms to the NKF-ASN Task Force Recommendations. Performed By: #### 4 6126 ####[facility] [address] [place] [address] Huber Prado M.D. [id number] PHOSPHORUSon 05-09-2024 Phosphate [Mass/Vol] 4.1 mg/dL Normal 2.7-4.5 [facility] Comment on above: Performed By: #### 4 6299 ####[facility] [address] [place] [address] Huber Prado M.D. [id number] POC GLUCOSE - [facility] 024 Glucose [Mass/Vol] 110 mg/dL High 65-99 [facility] Comment on above: Performed By: #### 4 6975 ####[facility] [address] [place] [address] [id number] HPOC Glucose [Mass/Vol] 116 mg/dL High 65-99 [facility] Comment on above: Performed By: #### 4 6985 ####[facility] [address] [place] [address] [id number] [facility] Glucose [Mass/Vol] 113 mg/dL High 65-99 [facility] Comment on above: Performed By: #### 4 6932 ####[facility] [address] [place] [address] [id number] [facility] Glucose [Mass/Vol] 123 mg/dL High 65-99 [facility] Comment on above: Performed By: #### 4 6932 ####[facility] [address] [place] [address] [id number] [facility] POTASSIUM LEVELon 05-09-2024 Potassium [Moles/Vol] 4.3 mmol/L Normal 3.5-5.1 [facility] Comment on above: Performed By: #### 4 6351 ####[facility] [address] [place] [address] Huber Prado M.D. [id number] CBC WITH AUTO DIFFERENTIALon 05-08-2024 AUTO NRBC 0.0 % [facility] Comment on above: Performed By: #### L [id number] ####[facility] [address] [place] [address] Huber Prado M.D. [id number] AUTO NRBC ABS COUNT 0.00 K/mcL Normal 0.00-0.00 [facility] Comment on above: Performed By: #### L [id number] ####[facility] [address] [place] [address] Huber Prado M.D. [id number] BASOPHILS ABSOLUTE COUNT 0.12 K/mcL Normal 0.00-0.30 [facility] Comment on above: Performed By: #### L [id number] ####[facility] [address] [place] [address] Huber Prado M.D. [id number] Basophils/100 WBC (Bld) 1.1 % [facility] Comment on above: Performed By: #### L [id number] ####[facility] [address] [place] [address] Huber Prado M.D. [id number] Eosinophils (Bld) [#/Vol] 0.35 10*3/uL Normal 0.00-0.50 [facility] Comment on above: Performed By: #### Tasha [id number] ####[facility] [address] [place] [address] Huber Prado M.D. [id number] Eosinophils/100 WBC (Bld) 3.2 % Normal [facility] Comment on above: Performed By: #### Tasha [id number] ####[facility] [address] [place] [address] Huber Prado M.D. [id number] Erythrocyte distribution width (RBC) [Ratio] 14.7 % Normal 11.6-14.8 [facility] Comment on above: Performed By: #### Tasha [id number] ####[facility] [address] [place] [address] Huber Prado M.D. [id number] Hematocrit (Bld) [Volume fraction] 27.1 % Low 36.0-46.0 [facility] Comment on above: Performed By: #### Tasha [id number] ####[facility] [address] [place] [address] Huber Prado M.D. [id number] Hemoglobin (Bld) [Mass/Vol] 8.6 g/dL Low 12.0-16.0 [facility] Comment on above: Performed By: #### L [id number] ####[facility] [address] [place] [address] Huber Prado M.D. [id number] IG ABSOLUTE 0.17 K/mcL Normal 0.00-0.30 [facility] Comment on above: Performed By: #### L [id number] ####[facility] [address] [place], [place] [id number] Huber Prado M.D. [id number] IG PERCENT 1.60 % Normal [facility] Comment on above: Result Comment: The IG parameter is the percentage of metamyelocytes, myelocytes and promyelocytes. An immature granulocyte count (IG) of 1% or more suggests the possibility of infection, an IG count of 3% is very likely related to an infection. Performed By: #### L [id number] ####[facility] [address] [place] [address] Huber Prado M.D. [id number] Lymphocytes (Bld) [#/Vol] 2.08 10*3/uL Normal 0.90-4.00 [facility] Comment on above: Performed By: #### Tasha [id number] ####[facility] [address] [place] [address] Huber Prado M.D. [id number] Lymphocytes/100 WBC (Bld) 19.3 % Normal [facility] Comment on above: Performed By: #### Tasha [id number] ####[facility] [address] [place], [place] [id number] Huber Prado M.D. [id number] MCH (RBC) [Entitic mass] 30.9 pg Normal 26.0-34.0 [facility] Comment on above: Performed By: #### L [id number] ####[facility] [address] [place], [place] [id number] Huber Prado M.D. [id number] MCV (RBC) [Entitic vol] 97.5 fL Normal 80.0-100.0 [facility] Comment on above: Performed By: #### L [id number] ####[facility] [address] [place], [place] [id number] Huber Prado M.D. [id number] MEAN CORPUSCULAR HEMOGLOBIN CONC 31.7 g/dL Normal 31.0-37.0 [facility] Comment on above: Performed By: #### L [id number] ####[facility] [address] [place] [address] Huber Prado M.D. [id number] Monocytes (Bld) [#/Vol] 0.65 10*3/uL Normal 0.30-0.90 [facility] Comment on above: Performed By: #### L [id number] ####[facility] [address] [place] [address] Huber Prado M.D. [id number] Monocytes/100 WBC (Bld) 6.0 % Normal [facility] Comment on above: Performed By: #### L [id number] ####[facility] [address] [place] [address] Huber Prado M.D. [id number] NEUTROPHILS ABSOLUTE COUNT 7.43 K/mcL High 1.70-7.00 [facility] Comment on above: Performed By: #### L [id number] ####[facility] [address] [place] [address] Huber Prado M.D. [id number] Neutrophils/100 WBC (Bld) 68.8 % Normal [facility] Comment on above: Performed By: #### L [id number] ####[facility] [address] [place], [place] [address]Nora Prado M.D. [id number] Platelet mean volume (Bld) [Entitic vol] 10.8 fL Normal 9.4-12.4 [facility] Comment on above: Performed By: #### L [id number] ####[facility] [address] [place], [place] [id number] Huber Prado M.D. [id number] Platelets (Bld) [#/Vol] 424 10*3/uL High 150-400 [facility] Comment on above: Performed By: #### L [id number] ####[facility] [address] [place] [address] Huber Prado M.D. [id number] RBC (Bld) [#/Vol] 2.78 10*6/uL Low 4.00-5.20 [facility] Comment on above: Performed By: #### L [id number] ####[facility] [address] [place], [place] [id number] Huber Prado M.D. [id number] WBC (Bld) [#/Vol] 10.80 10*3/uL Normal 4.50-11.00 [facility] Comment on above: Performed By: #### L [id number] ####[facility] [address] [place] [address] Huber Prado M.D. [id number] COMPREHENSIVE METABOLIC PANE [facility] 05-08-2024 Albumin [Mass/Vol] 3.6 g/dL Normal 3.2-5.2 [facility] Comment on above: Order Comment: [facility] has implemented the eGFR calculation approach that does not have a coefficient for race that conforms to the NKF-ASN Task Force Recommendations. Performed By: #### [id number] ####[facility] [address] [place] [address] Huber Prado M.D. [id number] ALP [Catalytic activity/Vol] 170 U/L High 40-140 [facility] Comment on above: Order Comment: [facility] has implemented the eGFR calculation approach that does not have a coefficient for race that conforms to the NKF-ASN Task Force Recommendations. Performed By: #### 4 [id number] ####[facility] [address] [place] [address] Huber Prado M.D. [id number] ALT [Catalytic activity/Vol] 27 U/L Normal 0-35 U/L [facility] Comment on above: Order Comment: [facility] has implemented the eGFR calculation approach that does not have a coefficient for race that conforms to the NKF-ASN Task Force Recommendations. Performed By: #### 4 [id number] ####[facility] [address] [place], [place] [address] Huber Prado M.D. [id number] Anion gap [Moles/Vol] 15 mmol/L Normal 10-20 [facility] Comment on above: Order Comment: [facility] has implemented the eGFR calculation approach that does not have a coefficient for race that conforms to the NKF-ASN Task Force Recommendations. Performed By: #### 4 [id number] ####[facility] [address] [place], [place] [address] Huber Prado M.D. [id number] AST [Catalytic activity/Vol] 14 U/L Normal 0-35 U/L [facility] Comment on above: Order Comment: [facility] has implemented the eGFR calculation approach that does not have a coefficient for race that conforms to the NKF-ASN Task Force Recommendations. Performed By: #### 4 [id number] ####[facility] [address] [place] [address] Huber Prado M.D. [id number] Bilirubin [Mass/Vol] 0.2 mg/dL Normal 0.0-1.3 [facility] Comment on above: Order Comment: [facility] has implemented the eGFR calculation approach that does not have a coefficient for race that conforms to the NKF-ASN Task Force Recommendations. Performed By: #### 4 [id number] ####[facility] [address] [place] [address] Huber Prado M.D. [id number] Calcium [Mass/Vol] 9.2 mg/dL Normal 8.4-10.2 [facility] Comment on above: Order Comment: [facility] has implemented the eGFR calculation approach that does not have a coefficient for race that conforms to the NKF-ASN Task Force Recommendations. Performed By: #### 4 [id number] ####[facility] [address] [place] [address] Huber Prado M.D. [id number] Chloride [Moles/Vol] 106 mmol/L Normal 98-108 [facility] Comment on above: Order Comment: [facility] has implemented the eGFR calculation approach that does not have a coefficient for race that conforms to the NKF-ASN Task Force Recommendations. Performed By: #### 4 [id number] ####[facility] [address] [place] [address] Huber Prado M.D. [id number] Creatinine [Mass/Vol] 1.26 mg/dL High 0.40-1.10 [facility] Comment on above: Order Comment: [facility] has implemented the eGFR calculation approach that does not have a coefficient for race that conforms to the NKF-ASN Task Force Recommendations. Performed By: #### 4 [id number] ####[facility] [address] [place] [address] Huber Prado M.D. [id number] EGFR 58 mL/min/1.73 m2 Low >=60 [facility] Comment on above: Order Comment: [facility] has implemented the eGFR calculation approach that does not have a coefficient for race that conforms to the NKF-ASN Task Force Recommendations. Result Comment: Neema mated GFR was calculated using the 2020 CKD-EPI creatinine equation. Performed By: #### 4 [id number] ####[facility] [address] [place] [address] Huber Prado M.D. [id number] Glucose [Mass/Vol] 114 mg/dL High 65-99 [facility] Comment on above: Order Comment: [facility] has implemented the eGFR calculation approach that does not have a coefficient for race that conforms to the NKF-ASN Task Force Recommendations. Performed By: #### 4 [id number] ####[facility] [address] [place] [address] Huber Prado M.D. [id number] HCO3 (Bld) [Moles/Vol] 25 mmol/L Normal 21-32 [facility] Comment on above: Order Comment: [facility] has implemented the eGFR calculation approach that does not have a coefficient for race that conforms to the NKF-ASN Task Force Recommendations. Performed By: #### 4 [id number] ####[facility] [address] [place] [address] Huber Prado M.D. [id number] Potassium [Moles/Vol] 3.8 mmol/L Normal 3.5-5.1 [facility] Comment on above: Order Comment: [facility] has implemented the eGFR calculation approach that does not have a coefficient for race that conforms to the NKF-ASN Task Force Recommendations. Performed By: #### 4 [id number] ####[facility] [address] [place], [place] [address] Huber Prado M.D. [id number] Protein [Mass/Vol] 7.0 g/dL Normal 6.0-8.0 [facility] Comment on above: Order Comment: [facility] has implemented the eGFR calculation approach that does not have a coefficient for race that conforms to the NKF-ASN Task Force Recommendations. Performed By: #### 4 [id number] ####[facility] [address] [place] [address] Huber Prado M.D. [id number] Sodium [Moles/Vol] 142 mmol/L Normal 135-145 [facility] Comment on above: Order Comment: [facility] has implemented the eGFR calculation approach that does not have a coefficient for race that conforms to the NKF-ASN Task Force Recommendations. Performed By: #### 4 [id number] ####[facility] [address] [place] [address] 20[address] Huber Prado M.D. [id number] Urea nitrogen [Mass/Vol] 38 mg/dL High 8-25 [facility] Comment on above: Order Comment: [facility] has implemented the eGFR calculation approach that does not have a coefficient for race that conforms to the NKF-ASN Task Force Recommendations. Performed By: #### 4 [id number] ####[facility] [address] [place] [address] Huber Prado M.D. [id number] Urea nitrogen/Creatinine [Mass ratio] 30.2 mg/mg High 10.0-20.0 [facility] Comment on above: Order Comment: [facility] has implemented the eGFR calculation approach that does not have a coefficient for race that conforms to the NKF-ASN Task Force Recommendations. Performed By: #### 4 [id number] ####[facility] [address] [place] [address] Huber Prado M.D. [id number] PHOSPHORUSon 05-08-2024 Phosphate [Mass/Vol] 4.2 mg/dL Normal 2.7-4.5 [facility] Comment on above: Performed By: #### 4 [id number] ####[facility] [address] [place] [address] Huber Prado M.D. [id number] POC GLUCOSE - [facility] 024 Glucose [Mass/Vol] 113 mg/dL High 65-99 [facility] Comment on above: Performed By: #### 4 6909 ####[facility] [address] [place] [address] [id number] [facility] Glucose [Mass/Vol] 113 mg/dL High 65-99 [facility] Comment on above: Performed By: #### 4 [id number] ####[facility] [address] [place] [address] [id number] [facility] Glucose [Mass/Vol] 116 mg/dL High 65-99 [facility] Comment on above: Performed By: #### 4 5623 ####[facility] [address] [place] [address] [id number] [facility] Glucose [Mass/Vol] 128 mg/dL High [address] [place] [address] Comment on above: Performed By: #### 4 6932 ####[facility] [address] [place] [address] [id number] [facility] Glucose [Mass/Vol] 128 mg/dL High [address] [place] [address] Comment on above: Performed By: #### 4 [id number] ####[facility] [address] [place] [address] [id number] [facility] Glucose [Mass/Vol] 119 mg/dL High [address] [place] [address] Comment on above: Performed By: #### 4 [id number] ####[facility] [address] [place] [address] [id number] [facility] STOOL/GI PCR PANELon 024 STOOL/GI PCR PANEL Normal Not Detected [facility] Comment on above: Order Comment: Resul [...] select bacterial infections. Performed By: #### L [id number] ####[facility] [address] [place] [address] Huber Prado M.D. [id number] VANCOMYCIN LEVEL, RANDOMon 0 05-08-2024 VANCOMYCIN RANDOM 7.3 mcg/mL Normal [facility] Comment on above: Order Comment: As of 05/2022 vancomycin dosing for [facility] inpatients will be done by Bayesian dosing software rather than off traditional trough values. Please contact the site specific inpatient pharmacy before making dose changes off of trough values alone for admitted patients.No established reference range. Performed By: #### 4 [id number] ####[facility] [address] [place] [address] Huber Prado M.D. [id number] CBC WITH AUTO DIFFERENTIALon 05-07-2024 AUTO NRBC 0.0 % Normal [facility] Comment on above: Performed By: #### L [id number] ####[facility] [address] [place] [address] Huber Prado M.D. [id number] AUTO NRBC ABS COUNT 0.00 K/mcL Normal 0.00-0.00 [facility] Comment on above: Performed By: #### Tasha [id number] ####[facility] [address] [place] [address] Huber Prado M.D. [id number] BASOPHILS ABSOLUTE COUNT 0.14 K/mcL Normal 0.00-0.30 [facility] Comment on above: Performed By: #### Tasha [id number] ####[facility] [address] [place] [address] Huber Prado M.D. [id number] Basophils/100 WBC (Bld) 1.0 % Normal [facility] Comment on above: Performed By: #### Tasha [id number] ####[facility] [address] [place] [address] Huber Prado M.D. [id number] Eosinophils (Bld) [#/Vol] 0.46 10*3/uL Normal 0.00-0.50 [facility] Comment on above: Performed By: #### L [id number] ####[facility] [address] [place] [address] Huber Prado M.D. [id number] Eosinophils/100 WBC (Bld) 3.4 % Normal [facility] Comment on above: Performed By: #### L [id number] ####[facility] [address] [place] [address] Huber Prado M.D. [id number] Erythrocyte distribution width (RBC) [Ratio] 15.5 % High 11.6-14.8 [facility] Comment on above: Performed By: #### L [id number] ####[facility] [address] [place] [address] Huber Prado M.D. [id number] Hematocrit (Bld) [Volume fraction] 25.7 % Low 36.0-46.0 [facility] Comment on above: Performed By: #### L [id number] ####[facility] [address] [place] [address] Huber Prado M.D. [id number] Hemoglobin (Bld) [Mass/Vol] 8.3 g/dL Low 12.0-16.0 [facility] Comment on above: Performed By: #### L [id number] ####[facility] [address] [place] [address] Huber Prado M.D. [id number] IG ABSOLUTE 0.21 K/mcL Normal 0.00-0.30 [facility] Comment on above: Performed By: #### L [id number] ####[facility] [address] [place] [address] Huber Prado M.D. [id number] IG PERCENT 1.60 % Normal [facility] Comment on above: Result Comment: The IG parameter is the percentage of metamyelocytes, myelocytes and promyelocytes. An immature granulocyte count (IG) of 1% or more suggests the possibility of infection, an IG count of 3% is very likely related to an infection. Performed By: #### L [id number] ####[facility] [address] [place] [address] Huber Prado M.D. [id number] Lymphocytes (Bld) [#/Vol] 1.72 10*3/uL Normal 0.90-4.00 [facility] Comment on above: Performed By: #### L [id number] ####[facility] [address] [place] [address] Huber Prado M.D. [id number] Lymphocytes/100 WBC (Bld) 12.7 % Normal [facility] Comment on above: Performed By: #### Tasha [id number] ####[facility] [address] [place] [address] Huber Prado M.D. [id number] MCH (RBC) [Entitic mass] 31.6 pg Normal 26.0-34.0 [facility] Comment on above: Performed By: #### Tasha [id number] ####[facility] [address] [place] [address] Huber Prado M.D. [id number] MCV (RBC) [Entitic vol] 97.7 fL Normal 80.0-100.0 [facility] Comment on above: Performed By: #### Tasha [id number] ####[facility] [address] [place] [address] Huber Prado M.D. [id number] MEAN CORPUSCULAR HEMOGLOBIN CONC 32.3 g/dL Normal 31.0-37.0 [facility] Comment on above: Performed By: #### Tasha [id number] ####[facility] [address] [place] [address] Huber Prado M.D. [id number] Monocytes (Bld) [#/Vol] 0.67 10*3/uL Normal 0.30-0.90 [facility] Comment on above: Performed By: #### L [id number] ####[facility] [address] [place] [address] Huber Prado M.D. [id number] Monocytes/100 WBC (Bld) 5.0 % Normal [facility] Comment on above: Performed By: #### Tasha [id number] ####[facility] [address] [place], [place] [id number] Huber Prado M.D. [id number] NEUTROPHILS ABSOLUTE COUNT 10.31 K/mcL High 1.70-7.00 [facility] Comment on above: Performed By: #### Tasha [id number] ####[facility] [address] [place], [place] [address] Huber Prado M.D. [id number] Neutrophils/100 WBC (Bld) 76.3 % Normal [facility] Comment on above: Performed By: #### L [id number] ####[facility] [address] [place], [place] [address] Huber Prado M.D. [id number] Platelet mean volume (Bld) [Entitic vol] 11.0 fL Normal 9.4-12.4 [facility] Comment on above: Performed By: #### Tasha [id number] ####[facility] [address] [place], [place] [address]Nora Prado M.D. [id number] Platelets (Bld) [#/Vol] 441 10*3/uL High 150-400 [facility] Comment on above: Performed By: #### L [id number] ####[facility] [address] [place], [place] [address]Nora Prado M.D. [id number] RBC (Bld) [#/Vol] 2.63 10*6/uL Low 4.00-5.20 [facility] Comment on above: Performed By: #### L [id number] ####[facility] [address] [place], [place] [id number] Huber Prado M.D. [id number] WBC (Bld) [#/Vol] 13.51 10*3/uL High 4.50-11.00 [facility] Comment on above: Performed By: #### L [id number] ####[facility] [address] [place] [address] Huber Prado M.D. [id number] COMPREHENSIVE METABOLIC PANE [place] 05-07-2024 Albumin [Mass/Vol] 3.6 g/dL Normal 3.2-5.2 [facility] Comment on above: Order Comment: [facility] has implemented the eGFR calculation approach that does not have a coefficient for race that conforms to the NKF-ASN Task Force Recommendations. Performed By: #### 4 [id number] ####[facility] [address] [place] [address] 40904 Huber Prado M.D. [id number] ALP [Catalytic activity/Vol] 170 U/L High 40-140 [facility] Comment on above: Order Comment: [facility] has implemented the eGFR calculation approach that does not have a coefficient for race that conforms to the NKF-ASN Task Force Recommendations. Performed By: #### 4 [id number] ####[facility] [address] [place] [address] 14429 Huber Prado M.D. [id number] ALT [Catalytic activity/Vol] 27 U/L Normal 0-35 U/L [facility] Comment on above: Order Comment: [facility] has implemented the eGFR calculation approach that does not have a coefficient for race that conforms to the NKF-ASN Task Force Recommendations. Performed By: #### 4 [id number] ####[facility] [address] [place] [address] 18268 Huber Prado M.D. [id number] Anion gap [Moles/Vol] 19 mmol/L Normal 10-20 [facility] Comment on above: Order Comment: [facility] has implemented the eGFR calculation approach that does not have a coefficient for race that conforms to the NKF-ASN Task Force Recommendations. Performed By: #### 4 [id number] ####[facility] [address] [place] [address] 10222 Huber Prado M.D. [id number] AST [Catalytic activity/Vol] 16 U/L Normal 0-35 U/L [facility] Comment on above: Order Comment: [facility] has implemented the eGFR calculation approach that does not have a coefficient for race that conforms to the NKF-ASN Task Force Recommendations. Performed By: #### 4 [id number] ####[facility] [address] [place] [address] Huber Prado M.D. [id number] Bilirubin [Mass/Vol] 0.2 mg/dL Normal 0.0-1.3 [facility] Comment on above: Order Comment: [facility] has implemented the eGFR calculation approach that does not have a coefficient for race that conforms to the NKF-ASN Task Force Recommendations. Performed By: #### 4 [id number] ####[facility] [address] [place] [address] Huber Prado M.D. [id number] Calcium [Mass/Vol] 9.1 mg/dL Normal 8.4-10.2 [facility] Comment on above: Order Comment: [facility] has implemented the eGFR calculation approach that does not have a coefficient for race that conforms to the NKF-ASN Task Force Recommendations. Performed By: #### 4 [id number] ####[facility] [address] [place], [place] [id number] Huber Prado M.D. [id number] Chloride [Moles/Vol] 107 mmol/L Normal 98-108 [facility] Comment on above: Order Comment: [facility] has implemented the eGFR calculation approach that does not have a coefficient for race that conforms to the NKF-ASN Task Force Recommendations. Performed By: #### 4 [id number] ####[facility] [address] [place], [place] [id number] Huber Prado M.D. [id number] Creatinine [Mass/Vol] 1.41 mg/dL High 0.40-1.10 [facility] Comment on above: Order Comment: [facility] has implemented the eGFR calculation approach that does not have a coefficient for race that conforms to the NKF-ASN Task Force Recommendations. Performed By: #### 4 6126 ####[facility] [address] [place] [address] 87673 Huber Prado M.D. [id number] EGFR 50 mL/min/1.73 m2 Low >=60 [facility] Comment on above: Order Comment: [facility] Services has implemented the eGFR calculation approach that does not have a coefficient for race that conforms to the NKF-ASN Task Force Recommendations. Result Comment: Neema mated GFR was calculated using the 2020 CKD-EPI creatinine equation. Performed By: #### 4 [id number] ####[facility] [address] [place] [address] 24167 Huber Prado M.D. [id number] Glucose [Mass/Vol] 117 mg/dL High 65-99 [facility] Comment on above: Order Comment: [facility] Services has implemented the eGFR calculation approach that does not have a coefficient for race that conforms to the NKF-ASN Task Force Recommendations. Performed By: #### 4 [id number] ####[facility] [address] [place] [address] 15520 Huber Prado M.D. [id number] HCO3 (Bld) [Moles/Vol] 23 mmol/L Normal 21-32 [facility] Comment on above: Order Comment: [facility] has implemented the eGFR calculation approach that does not have a coefficient for race that conforms to the NKF-ASN Task Force Recommendations. Performed By: #### 4 [id number] ####[facility] [address] [place] [address] 31511 Huber Prado M.D. [id number] Potassium [Moles/Vol] 4.1 mmol/L Normal 3.5-5.1 [facility] Comment on above: Order Comment: [facility] has implemented the eGFR calculation approach that does not have a coefficient for race that conforms to the NKF-ASN Task Force Recommendations. Performed By: #### 4 [id number] ####[facility] [address] [place] [address] 56747 Huber Prado M.D. [id number] Protein [Mass/Vol] 6.9 g/dL Normal 6.0-8.0 [facility] Comment on above: Order Comment: [facility] has implemented the eGFR calculation approach that does not have a coefficient for race that conforms to the NKF-ASN Task Force Recommendations. Performed By: #### 4 [id number] ####[facility] [address] [place] [address] 35269 Huber Prado M.D. [id number] Sodium [Moles/Vol] 145 mmol/L Normal 135-145 [facility] Comment on above: Order Comment: [facility] has implemented the eGFR calculation approach that does not have a coefficient for race that conforms to the NKF-ASN Task Force Recommendations. Performed By: #### 4 [id number] ####[facility] [address] [place] [address] 00176 Huber Prado M.D. [id number] Urea nitrogen [Mass/Vol] 41 mg/dL High 8-25 [facility] Comment on above: Order Comment: [facility] has implemented the eGFR calculation approach that does not have a coefficient for race that conforms to the NKF-ASN Task Force Recommendations. Performed By: #### 4 [id number] ####[facility] [address] [place] [address] 22248 Huber Prado M.D. [id number] Urea nitrogen/Creatinine [Mass ratio] 29.1 mg/mg High 10.0-20.0 [facility] Comment on above: Order Comment: [facility] has implemented the eGFR calculation approach that does not have a coefficient for race that conforms to the NKF-ASN Task Force Recommendations. Performed By: #### 4 [id number] ####[facility] [address] [place] [address] Huber Prado M.D. [id number] CONSULTon 05-07-2024 CONSULT Noted added for clearance of consult order. Please see consult completed by Dr. Viera AUTHENTICATED BY DOC BLOUNT, ON 05/07/2024 14:03:01 Normal [facility] CONSULT Normal [facility] OP NOTEon 05-07-2024 OP NOTE Normal [facility] PHOSPHORUSon 05-07-2024 Phosphate [Mass/Vol] 4.6 mg/dL High 2.7-4.5 [facility] Comment on above: Performed By: #### 4 [id number] ####[facility] [address] [place] [address] Huber Prado M.D. [id number] POC GLUCOSE - [facility] 024 Glucose [Mass/Vol] 124 mg/dL High [address] [place] [address] Comment on above: Performed By: #### 4 6932 ####[facility] [address] [place] [address] [id number] [facility] Glucose [Mass/Vol] 132 mg/dL [address] Comment on above: Performed By: #### 4 6932 ####[facility] [address] [place] [address] [id number] [facility] Glucose [Mass/Vol] 109 mg/dL [address] Comment on above: Performed By: #### 4 6944 ####[facility] [address] [place] [address] [id number] [facility] Glucose [Mass/Vol] 116 mg/dL [address] Comment on above: Performed By: #### 4 6985 ####[facility] [address] [place] [address] [id number] [facility] Glucose [Mass/Vol] 125 mg/dL [address] Comment on above: Performed By: #### 4 6932 ####[facility] [address] [place] [address] [id number] [facility] Glucose [Mass/Vol] 110 mg/dL High 65-99 [facility] Comment on above: Performed By: #### 4 6932 ####[facility] [address] [place] [address] [id number] [facility] CBC WITH AUTO DIFFERENTIALon 05-06-2024 AUTO NRBC 0.0 % Normal [facility] Comment on above: Performed By: #### L [id number] ####[facility] [address] [place] [address] Huber Prado M.D. [id number] AUTO NRBC ABS COUNT 0.00 K/mcL Normal 0.00-0.00 [facility] Comment on above: Performed By: #### L [id number] ####[facility] [address] [place] [address] Huber Prado M.D. [id number] BASOPHILS ABSOLUTE COUNT 0.13 K/mcL Normal 0.00-0.30 [facility] Comment on above: Performed By: #### L [id number] ####[facility] [address] [place] [address] Huber Prado M.D. [id number] Basophils/100 WBC (Bld) 1.0 % Normal [facility] Comment on above: Performed By: #### L [id number] ####[facility] [address] [place] [address] Huber Prado M.D. [id number] Eosinophils (Bld) [#/Vol] 0.37 10*3/uL Normal 0.00-0.50 [facility] Comment on above: Performed By: #### L [id number] ####[facility] [address] [place] [address] Huber Prado M.D. [id number] Eosinophils/100 WBC (Bld) 2.9 % Normal [facility] Comment on above: Performed By: #### L [id number] ####[facility] [address] [place] [address] Huber Prado M.D. [id number] Erythrocyte distribution width (RBC) [Ratio] 15.4 % High 11.6-14.8 [facility] Comment on above: Performed By: #### L [id number] ####[facility] [address] [place] [address] Huber Prado M.D. [id number] Hematocrit (Bld) [Volume fraction] 24.7 % Low 36.0-46.0 [facility] Comment on above: Performed By: #### L [id number] ####[facility] [address] [place] [address] Huber Prado M.D. [id number] Hemoglobin (Bld) [Mass/Vol] 8.0 g/dL Low 12.0-16.0 [facility] Comment on above: Performed By: #### L [id number] ####[facility] [address] [place] [address] Huber Prado M.D. [id number] IG ABSOLUTE 0.23 K/mcL Normal 0.00-0.30 [facility] Comment on above: Performed By: #### L [id number] ####[facility] [address] [place] [address] Huber Prado M.D. [id number] IG PERCENT 1.80 % Normal [facility] Comment on above: Result Comment: The IG parameter is the percentage of metamyelocytes, myelocytes and promyelocytes. An immature granulocyte count (IG) of 1% or more suggests the possibility of infection, an IG count of 3% is very likely related to an infection. Performed By: #### L [id number] ####[facility] [address] [place] [address] Huber Prado M.D. [id number] Lymphocytes (Bld) [#/Vol] 2.29 10*3/uL Normal 0.90-4.00 [facility] Comment on above: Performed By: #### Tasha [id number] ####[facility] [address] [place] [address] Huber Prado M.D. [id number] Lymphocytes/100 WBC (Bld) 17.7 % Normal [facility] Comment on above: Performed By: #### Tasha [id number] ####[facility] [address] [place] [address] Huber Prado M.D. [id number] MCH (RBC) [Entitic mass] 30.9 pg Normal 26.0-34.0 [facility] Comment on above: Performed By: #### Tasha [id number] ####[facility] [address] [place] [address] Huber Prado M.D. [id number] MCV (RBC) [Entitic vol] 95.4 fL Normal 80.0-100.0 [facility] Comment on above: Performed By: #### Tasha [id number] ####[facility] [address] [place] [address] Huber Prado M.D. [id number] MEAN CORPUSCULAR HEMOGLOBIN CONC 32.4 g/dL Normal 31.0-37.0 [facility] Comment on above: Performed By: #### Tasha [id number] ####[facility] [address] [place], [place] [id number] Huber Prado M.D. [id number] Monocytes (Bld) [#/Vol] 0.78 10*3/uL Normal 0.30-0.90 [facility] Comment on above: Performed By: #### Tasha [id number] ####[facility] [address] [place] [address] Huber Prado M.D. [id number] Monocytes/100 WBC (Bld) 6.0 % Normal [facility] Comment on above: Performed By: #### Tasha [id number] ####[facility] [address] [place] [address] Huber Prado M.D. [id number] NEUTROPHILS ABSOLUTE COUNT 9.16 K/mcL High 1.70-7.00 [facility] Comment on above: Performed By: #### Tasha [id number] ####[facility] [address] [place] [address] Huber Prado M.D. [id number] Neutrophils/100 WBC (Bld) 70.6 % Normal [facility] Comment on above: Performed By: #### Tasha [id number] ####[facility] [address] [place] [address] Huber Prado M.D. [id number] Platelet mean volume (Bld) [Entitic vol] 11.7 fL Normal 9.4-12.4 [facility] Comment on above: Performed By: #### Tasha [id number] ####[facility] [address] [place], [place] [address]Nora Prado M.D. [id number] Platelets (Bld) [#/Vol] 362 10*3/uL Normal 150-400 [facility] Comment on above: Performed By: #### L [id number] ####[facility] [address] [place], [place] [id number] Huber Prado M.D. [id number] RBC (Bld) [#/Vol] 2.59 10*6/uL Low 4.00-5.20 [facility] Comment on above: Performed By: #### L [id number] ####[facility] [address] [place] [address] Huber Prado M.D. [id number] WBC (Bld) [#/Vol] 12.96 10*3/uL High 4.50-11.00 [facility] Comment on above: Performed By: #### L [id number] ####[facility] [address] [place] [address] 87629 Huber Prado M.D. [id number] COMPREHENSIVE METABOLIC PANE [facility] 05-06-2024 Albumin [Mass/Vol] 3.3 g/dL Normal 3.2-5.2 [facility] Comment on above: Order Comment: [facility] has implemented the eGFR calculation approach that does not have a coefficient for race that conforms to the NKF-ASN Task Force Recommendations. Performed By: #### 4 [id number] ####[facility] [address] [place] [address] 60019 Huber Prado M.D. [id number] ALP [Catalytic activity/Vol] 176 U/L High 40-140 [facility] Comment on above: Order Comment: [facility] Services has implemented the eGFR calculation approach that does not have a coefficient for race that conforms to the NKF-ASN Task Force Recommendations. Performed By: #### 4 [id number] ####[facility] [address] [place] [address] 94600 Huber Prado M.D. [id number] ALT [Catalytic activity/Vol] 22 U/L Normal 0-35 U/L [facility] Comment on above: Order Comment: [facility] has implemented the eGFR calculation approach that does not have a coefficient for race that conforms to the NKF-ASN Task Force Recommendations. Performed By: #### 4 [id number] ####[facility] [address] [place] [address] 12372 Huber Prado M.D. [id number] Anion gap [Moles/Vol] 19 mmol/L Normal 10-20 [facility] Comment on above: Order Comment: [facility] Services has implemented the eGFR calculation approach that does not have a coefficient for race that conforms to the NKF-ASN Task Force Recommendations. Performed By: #### 4 6110 ####[facility] [address] [place] [address] 91639 Huber Prado M.D. [id number] AST [Catalytic activity/Vol] 16 U/L Normal 0-35 U/L [facility] Comment on above: Order Comment: [facility] has implemented the eGFR calculation approach that does not have a coefficient for race that conforms to the NKF-ASN Task Force Recommendations. Result Comment: Slig htly Hemolyzed Performed By: #### 4 [id number] ####[facility] [address] [place], [place] [id number] Huber Prado M.D. [id number] BILIRUBIN TOTAL < Normal 0.0-1.3 [facility] Comment on above: Order Comment: [facility] has implemented the eGFR calculation approach that does not have a coefficient for race that conforms to the NKF-ASN Task Force Recommendations. Performed By: #### 4 [id number] ####[facility] [address] [place] [address] 10821 Huber Prado M.D. [id number] Calcium [Mass/Vol] 9.2 mg/dL Normal 8.4-10.2 [facility] Comment on above: Order Comment: [facility] has implemented the eGFR calculation approach that does not have a coefficient for race that conforms to the NKF-ASN Task Force Recommendations. Performed By: #### 4 6187 ####[facility] [address] [place] [address] 95474 Huber Prado M.D. [id number] Chloride [Moles/Vol] 110 mmol/L High 98-108 [facility] Comment on above: Order Comment: [facility] has implemented the eGFR calculation approach that does not have a coefficient for race that conforms to the NKF-ASN Task Force Recommendations. Performed By: #### 4 [id number] ####[facility] [address] [place] [address] 82931 Huber Prado M.D. [id number] Creatinine [Mass/Vol] 1.81 mg/dL High 0.40-1.10 [facility] Comment on above: Order Comment: [facility] has implemented the eGFR calculation approach that does not have a coefficient for race that conforms to the NKF-ASN Task Force Recommendations. Performed By: #### 4 6126 ####[facility] [address] [place] [address] 68013 Huber Prado M.D. [id number] EGFR 37 mL/min/1.73 m2 Low >=60 [facility] Comment on above: Order Comment: [facility] has implemented the eGFR calculation approach that does not have a coefficient for race that conforms to the NKF-ASN Task Force Recommendations. Result Comment: Neema mated GFR was calculated using the 2020 CKD-EPI creatinine equation. Performed By: #### 4 [id number] ####[facility] [address] [place] [address] 65227 Huber Prado M.D. [id number] Glucose [Mass/Vol] 116 mg/dL High 65-99 [facility] Comment on above: Order Comment: [facility] has implemented the eGFR calculation approach that does not have a coefficient for race that conforms to the NKF-ASN Task Force Recommendations. Performed By: #### 4 [id number] ####[facility] [address] [place] [address] 12442 Huber Prado M.D. [id number] HCO3 (Bld) [Moles/Vol] 21 mmol/L Normal 21-32 [facility] Comment on above: Order Comment: [facility] has implemented the eGFR calculation approach that does not have a coefficient for race that conforms to the NKF-ASN Task Force Recommendations. Performed By: #### 4 6126 ####[facility] [address] [place] [address] 17605 Huber Prado M.D. [id number] Potassium [Moles/Vol] 3.6 mmol/L Normal 3.5-5.1 [facility] Comment on above: Order Comment: [facility] has implemented the eGFR calculation approach that does not have a coefficient for race that conforms to the NKF-ASN Task Force Recommendations. Result Comment: Slig htly Hemolyzed Performed By: #### 4 [id number] ####[facility] [address] [place] [address] 48138 Huber Prado M.D. [id number] Protein [Mass/Vol] 6.9 g/dL Normal 6.0-8.0 [facility] Comment on above: Order Comment: [facility] has implemented the eGFR calculation approach that does not have a coefficient for race that conforms to the NKF-ASN Task Force Recommendations. Performed By: #### 4 6126 ####[facility] [address] [place], [place] [id number] Huber Prado M.D. [id number] Sodium [Moles/Vol] 146 mmol/L High 135-145 [facility] Comment on above: Order Comment: [facility] has implemented the eGFR calculation approach that does not have a coefficient for race that conforms to the NKF-ASN Task Force Recommendations. Performed By: #### 4 6126 ####[facility] [address] [place], [place] [id number] Huber Prado M.D. [id number] Urea nitrogen [Mass/Vol] 46 mg/dL High 8-25 [facility] Comment on above: Order Comment: [facility] has implemented the eGFR calculation approach that does not have a coefficient for race that conforms to the NKF-ASN Task Force Recommendations. Performed By: #### 4 [id number] ####[facility] [address] [place] [address] 55573 Huber Prado M.D. [id number] Urea nitrogen/Creatinine [Mass ratio] 25.4 mg/mg High 10.0-20.0 [facility] Comment on above: Order Comment: [facility] has implemented the eGFR calculation approach that does not have a coefficient for race that conforms to the NKF-ASN Task Force Recommendations. Performed By: #### 4 6126 ####[facility] [address] [place] [address] [id number] [address] CHEST ABDOMEN PELVIS WITH OUT CONTRASTon 05-06-2024 CT CHEST ABDOMEN PELVIS WITHOUT CONTRAST Normal [facility] Comment on above: Order Comment: Injur y/Trauma or Illness?:Illness/OtherHow long have you had these symptoms (acute/chronic)?:AcuteReason for exam?:Sepsis; eval for interval pulmonary infiltrates or alternative sources of infection to explain feversType of Exam?:InitialAdditional signs and symptoms?:Sepsis; eval for interval pulmonary infiltrates or alternative sources of infection to explain fevers PHOSPHORUSon 05-06-2024 Phosphate [Mass/Vol] 3.4 mg/dL Normal 2.7-4.5 [facility] Comment on above: Performed By: #### 4 [id number] ####[facility] [address] [place] [address] Huber Prado M.D. [id number] [facility] Glucose [Mass/Vol] 103 mg/dL High 65-99 [facility] Comment on above: Performed By: #### 4 6945 ####[facility] [address] [place] [address] [id number] [facility] Glucose [Mass/Vol] 109 mg/dL High 65-99 [facility] Comment on above: Performed By: #### 4 6936 ####[facility] [address] [place] [address] [id number] [facility] Glucose [Mass/Vol] 115 mg/dL High 65-99 [facility] Comment on above: Performed By: #### 4 6901 ####[facility] [address] [place] [address] [id number] [facility] Glucose [Mass/Vol] 133 mg/dL High [address] [place] [address] Comment on above: Performed By: #### 4 6932 ####[facility] [address] [place] [address] [id number] [facility] Glucose [Mass/Vol] 120 mg/dL High [address] [place] [address] Comment on above: Performed By: #### 4 6932 ####[facility] [address] [place] [address] [id number] [facility] Glucose [Mass/Vol] 129 mg/dL High [address] [place] [address] Comment on above: Performed By: #### 4 6932 ####[facility] [address] [place] [address] [id number] [facility] POTASSIUM LEVELon 05-06-2024 Potassium [Moles/Vol] 4.3 mmol/L Normal 3.5-5.1 [facility] Comment on above: Performed By: #### 4 6351 ####[facility] [address] [place] [address] Huber Prado M.D. [id number] VANCOMYCIN LEVEL, RANDOMon 0 05-06-2024 VANCOMYCIN RANDOM 31.8 mcg/mL [facility] Comment on above: Order Comment: As of 05/2022 vancomycin dosing for [facility] inpatients will be done by Bayesian dosing software rather than off traditional trough values. Please contact the site specific inpatient pharmacy before making dose changes off of trough values alone for admitted patients.No established reference range. Performed By: #### 4 6651 ####[facility] [address] [place] [address] Huber Prado M.D. [id number] CBC WITH AUTO DIFFERENTIALon 05-05-2024 AUTO NRBC 0.0 % Normal [facility] Comment on above: Performed By: #### L [id number] ####[facility] [address] [address] Huber Prado M.D. [id number] AUTO NRBC ABS COUNT 0.00 K/mcL Normal 0.00-0.00 [facility] Comment on above: Performed By: #### Tasha [id number] ####[facility] [address] [place] [address] Huber Prado M.D. [id number] BASOPHILS ABSOLUTE COUNT 0.11 K/mcL Normal 0.00-0.30 [facility] Comment on above: Performed By: #### Tasha [id number] ####[facility] [address] [place] [address] Huber Prado M.D. [id number] Basophils/100 WBC (Bld) 0.8 % Normal [facility] Comment on above: Performed By: #### Tasha [id number] ####[facility] [address] [place] [address] Huber Prado M.D. [id number] Eosinophils (Bld) [#/Vol] 0.30 10*3/uL Normal 0.00-0.50 [facility] Comment on above: Performed By: #### Tasha [id number] ####[facility] [address] [place] [address] Huber Prado M.D. [id number] Eosinophils/100 WBC (Bld) 2.0 % Normal [facility] Comment on above: Performed By: #### L [id number] ####[facility] [address] [place] [address] Huber Prado M.D. [id number] Erythrocyte distribution width (RBC) [Ratio] 15.3 % High 11.6-14.8 [facility] Comment on above: Performed By: #### Tasha [id number] ####[facility] [address] [place] [address] Huber Prado M.D. [id number] Hematocrit (Bld) [Volume fraction] 25.0 % Low 36.0-46.0 [facility] Comment on above: Performed By: #### L [id number] ####[facility] [address] [place] [address] Huber Prado M.D. [id number] Hemoglobin (Bld) [Mass/Vol] 8.0 g/dL Low 12.0-16.0 [facility] Comment on above: Performed By: #### L [id number] ####[facility] [address] [place] [address] Huber Prado M.D. [id number] IG ABSOLUTE 0.33 K/mcL High 0.00-0.30 [facility] Comment on above: Performed By: #### L [id number] ####[facility] [address] [place] [address] Huber Prado M.D. [id number] IG PERCENT 2.30 % Normal [facility] Comment on above: Result Comment: The IG parameter is the percentage of metamyelocytes, myelocytes and promyelocytes. An immature granulocyte count (IG) of 1% or more suggests the possibility of infection, an IG count of 3% is very likely related to an infection. Performed By: #### L [id number] ####[facility] [address] [place] [address] Huber Prado M.D. [id number] Lymphocytes (Bld) [#/Vol] 2.33 10*3/uL Normal 0.90-4.00 [facility] Comment on above: Performed By: #### L [id number] ####[facility] [address] [place] [address] Huber Prado M.D. [id number] Lymphocytes/100 WBC (Bld) 15.9 % Normal [facility] Comment on above: Performed By: #### L [id number] ####[facility] [address] [place] [address] Huber Prado M.D. [id number] MCH (RBC) [Entitic mass] 30.1 pg Normal 26.0-34.0 [facility] Comment on above: Performed By: #### Tasha [id number] ####[facility] [address] [place] [address] Huber Prado M.D. [id number] MCV (RBC) [Entitic vol] 94.0 fL Normal 80.0-100.0 [facility] Comment on above: Performed By: #### Tasha [id number] ####[facility] [address] [place] [address] Huber Prado M.D. [id number] MEAN CORPUSCULAR HEMOGLOBIN CONC 32.0 g/dL Normal 31.0-37.0 [facility] Comment on above: Performed By: #### Tasha [id number] ####[facility] [address] [place] [address] Huber Prado M.D. [id number] Monocytes (Bld) [#/Vol] 0.87 10*3/uL Normal 0.30-0.90 [facility] Comment on above: Performed By: #### Tasha [id number] ####[facility] [address] [place], [place] [id number] Huber Prado M.D. [id number] Monocytes/100 WBC (Bld) 5.9 % Normal [facility] Comment on above: Performed By: #### Tasha [id number] ####[facility] [address] [place] [address] Huber Prado M.D. [id number] NEUTROPHILS ABSOLUTE COUNT 10.70 K/mcL High 1.70-7.00 [facility] Comment on above: Performed By: #### Tasha [id number] ####[facility] [address] [place], [place] [id number] Huber Prado M.D. [id number] Neutrophils/100 WBC (Bld) 73.1 % Normal [facility] Comment on above: Performed By: #### L [id number] ####[facility] [address] [place] [address] Huber Prado M.D. [id number] Platelet mean volume (Bld) [Entitic vol] 11.3 fL Normal 9.4-12.4 [facility] Comment on above: Performed By: #### L [id number] ####[facility] [address] [place], [place] [id number] Huber Prado M.D. [id number] Platelets (Bld) [#/Vol] 361 10*3/uL Normal 150-400 [facility] Comment on above: Performed By: #### L [id number] ####[facility] [address] [place], [place] [address] Huber Prado M.D. [id number] RBC (Bld) [#/Vol] 2.66 10*6/uL Low 4.00-5.20 [facility] Comment on above: Performed By: #### L [id number] ####[facility] [address] [place], [place] [address]Nora Prado M.D. [id number] WBC (Bld) [#/Vol] 14.64 10*3/uL High 4.50-11.00 [facility] Comment on above: Performed By: #### L [id number] ####[facility] [address] [place] [address] Huber Prado M.D. [id number] COMPREHENSIVE METABOLIC PANE Nate 05-05-2024 Albumin [Mass/Vol] 3.3 g/dL Normal 3.2-5.2 [facility] Comment on above: Order Comment: [facility] has implemented the eGFR calculation approach that does not have a coefficient for race that conforms to the NKF-ASN Task Force Recommendations. Performed By: #### [id number] ####[facility] [address] [place], [place] [address] Huber Prado M.D. [id number] ALP [Catalytic activity/Vol] 179 U/L High 40-140 [facility] Comment on above: Order Comment: [facility] has implemented the eGFR calculation approach that does not have a coefficient for race that conforms to the NKF-ASN Task Force Recommendations. Performed By: #### [id number] ####[facility] [address] [place], [place] [address] Huber Prado M.D. [id number] ALT [Catalytic activity/Vol] 24 U/L Normal 0-35 U/L [facility] Comment on above: Order Comment: [facility] has implemented the eGFR calculation approach that does not have a coefficient for race that conforms to the NKF-ASN Task Force Recommendations. Performed By: #### [id number] ####[facility] [address] [place] [address] Huber Prado M.D. [id number] Anion gap [Moles/Vol] 18 mmol/L Normal 10-20 [facility] Comment on above: Order Comment: [facility] has implemented the eGFR calculation approach that does not have a coefficient for race that conforms to the NKF-ASN Task Force Recommendations. Performed By: #### [id number] ####[facility] [address] [place] [address] Huber Prado M.D. [id number] AST [Catalytic activity/Vol] 17 U/L Normal 0-35 U/L [facility] Comment on above: Order Comment: [facility] has implemented the eGFR calculation approach that does not have a coefficient for race that conforms to the NKF-ASN Task Force Recommendations. Performed By: #### 4 [id number] ####[facility] [address] [place] [address] Huber Prado M.D. [id number] Bilirubin [Mass/Vol] 0.2 mg/dL Normal 0.0-1.3 [facility] Comment on above: Order Comment: [facility] has implemented the eGFR calculation approach that does not have a coefficient for race that conforms to the NKF-ASN Task Force Recommendations. Performed By: #### [id number] ####[facility] [address] [place] [address] Huber Prado M.D. [id number] Calcium [Mass/Vol] 8.5 mg/dL Normal 8.4-10.2 [facility] Comment on above: Order Comment: [facility] has implemented the eGFR calculation approach that does not have a coefficient for race that conforms to the NKF-ASN Task Force Recommendations. Performed By: #### 4 [id number] ####[facility] [address] [place], [place] [address] Huber Prado M.D. [id number] Chloride [Moles/Vol] 106 mmol/L Normal 98-108 [facility] Comment on above: Order Comment: [facility] has implemented the eGFR calculation approach that does not have a coefficient for race that conforms to the NKF-ASN Task Force Recommendations. Performed By: #### 4 [id number] ####[facility] [address] [place] [address] Huber Prado M.D. [id number] Creatinine [Mass/Vol] 1.75 mg/dL High 0.40-1.10 [facility] Comment on above: Order Comment: [facility] has implemented the eGFR calculation approach that does not have a coefficient for race that conforms to the NKF-ASN Task Force Recommendations. Performed By: #### 4 [id number] ####[facility] [address] [place], [place] [address] Huber Prado M.D. [id number] EGFR 39 mL/min/1.73 m2 Low >=60 [facility] Comment on above: Order Comment: [facility] has implemented the eGFR calculation approach that does not have a coefficient for race that conforms to the NKF-ASN Task Force Recommendations. Result Comment: Neema mated GFR was calculated using the 2020 CKD-EPI creatinine equation. Performed By: #### 4 [id number] ####[facility] [address] [place] [address] Huber Prado M.D. [id number] Glucose [Mass/Vol] 144 mg/dL High 65-99 [facility] Comment on above: Order Comment: [facility] has implemented the eGFR calculation approach that does not have a coefficient for race that conforms to the NKF-ASN Task Force Recommendations. Performed By: #### 4 [id number] ####[facility] [address] [place] [address] Huber Prado M.D. [id number] HCO3 (Bld) [Moles/Vol] 22 mmol/L Normal 21-32 [facility] Comment on above: Order Comment: [facility] has implemented the eGFR calculation approach that does not have a coefficient for race that conforms to the NKF-ASN Task Force Recommendations. Performed By: #### 4 [id number] ####[facility] [address] [place] [address] Huber Pardo M.D. [id number] Potassium [Moles/Vol] 3.2 mmol/L Low 3.5-5.1 [facility] Comment on above: Order Comment: [facility] has implemented the eGFR calculation approach that does not have a coefficient for race that conforms to the NKF-ASN Task Force Recommendations. Performed By: #### 4 [id number] ####[facility] [address] [place] [address] Huber Prado M.D. [id number] Protein [Mass/Vol] 6.5 g/dL Normal 6.0-8.0 [facility] Comment on above: Order Comment: [facility] has implemented the eGFR calculation approach that does not have a coefficient for race that conforms to the NKF-ASN Task Force Recommendations. Performed By: #### 4 [id number] ####[facility] [address] [place], [place] [address] Huber Prado M.D. [id number] Sodium [Moles/Vol] 143 mmol/L Normal 135-145 [facility] Comment on above: Order Comment: [facility] has implemented the eGFR calculation approach that does not have a coefficient for race that conforms to the NKF-ASN Task Force Recommendations. Performed By: #### 4 [id number] ####[facility] [address] [place], [place] [address] Huber Prado M.D. [id number] Urea nitrogen [Mass/Vol] 50 mg/dL High 8-25 [facility] Comment on above: Order Comment: [facility] has implemented the eGFR calculation approach that does not have a coefficient for race that conforms to the NKF-ASN Task Force Recommendations. Performed By: #### 4 [id number] ####[facility] [address] [place], [place] [address] Huber Prado M.D. [id number] Urea nitrogen/Creatinine [Mass ratio] 28.6 mg/mg High 10.0-20.0 [facility] Comment on above: Order Comment: [facility] has implemented the eGFR calculation approach that does not have a coefficient for race that conforms to the NKF-ASN Task Force Recommendations. Performed By: #### 4 [id number] ####[facility] [address] [place] [address] Huber Prado M.D. [id number] PHOSPHORUSon 05-05-2024 Phosphate [Mass/Vol] 4.4 mg/dL Normal 2.7-4.5 [facility] Comment on above: Performed By: #### 4 [id number] ####[facility] [address] [place] [address] Huber Prado M.D. [id number] POC GLUCOSE [facility] 024 Glucose [Mass/Vol] 105 mg/dL [address] Comment on above: Performed By: #### 4 6958 ####[facility] [address] [place] [address] [id number] [facility] Glucose [Mass/Vol] 126 mg/dL [address] Comment on above: Performed By: #### 4 3846 ####[facility] [address] [place] [address] [id number] [facility] Glucose [Mass/Vol] 128 mg/dL [address] Comment on above: Performed By: #### 4 6319 ####[facility] [address] [place] [address] [id number] [facility] Glucose [Mass/Vol] 133 mg/dL [address] Comment on above: Performed By: #### 4 3919 ####[facility] [address] [place] [address] [id number] [facility] Glucose [Mass/Vol] 122 mg/dL [address] Comment on above: Performed By: #### 4 4053 ####[facility] [address] [place] [address] [id number] [facility] Glucose [Mass/Vol] 138 mg/dL [address] Comment on above: Performed By: #### 4 3524 ####[facility] [address] [place] [address] [id number] [facility] POTASSIUM LEVELon 05-05-2024 Potassium [Moles/Vol] 4.7 mmol/L Normal 3.5-5.1 [facility] Comment on above: Performed By: #### 4 [id number] ####[facility] [address] [place], [place] [address] Huber Prado M.D. [id number] US DUPLEX VENOUS ARMS BILATE RALon 05-05-2024 US DUPLEX VENOUS ARMS BILATERAL Normal [facility] US DUPLEX VENOUS ARMS BILATERAL Normal [facility] VANCOMYCIN LEVEL, RANDOMon 0 05-05-2024 VANCOMYCIN RANDOM 10.5 mcg/mL Normal [facility] Comment on above: Order Comment: As of 05/2022 vancomycin dosing for [facility] inpatients will be done by Bayesian dosing software rather than off traditional trough values. Please contact the site specific inpatient pharmacy before making dose changes off of trough values alone for admitted patients.No established reference range. Performed By: #### 4 [id number] ####[facility] [address] [place], [place] [address] Huber Prado M.D. [id number] CBC WITH AUTO DIFFERENTIALon 05-04-2024 AUTO NRBC 0.0 % [facility] Comment on above: Performed By: #### L [id number] ####[facility] [address] [place], [place] [address] Huber Prado M.D. [id number] AUTO NRBC ABS COUNT 0.00 K/mcL Normal 0.00-0.00 [facility] Comment on above: Performed By: #### L [id number] ####[facility] [address] [place] [address] Huber Prado M.D. [id number] BASOPHILS ABSOLUTE COUNT 0.12 K/mcL Normal 0.00-0.30 [facility] Comment on above: Performed By: #### L [id number] ####[facility] [address] [place], [place] [address] Huber Prado M.D. [id number] Basophils/100 WBC (Bld) 0.8 % [facility] Comment on above: Performed By: #### L [id number] ####[facility] [address] [place] [address] Huber Prado M.D. [id number] Eosinophils (Bld) [#/Vol] 0.35 10*3/uL Normal 0.00-0.50 [facility] Comment on above: Performed By: #### L [id number] ####[facility] [address] [place] [address] Huber Prado M.D. [id number] Eosinophils/100 WBC (Bld) 2.4 % Normal [facility] Comment on above: Performed By: #### Tasha [id number] ####[facility] [address] [place] [address] Huber Prado M.D. [id number] Erythrocyte distribution width (RBC) [Ratio] 14.7 % Normal 11.6-14.8 [facility] Comment on above: Performed By: #### Tasha [id number] ####[facility] [address] [place] [address] Huber Prado M.D. [id number] Hematocrit (Bld) [Volume fraction] 27.5 % Low 36.0-46.0 [facility] Comment on above: Performed By: #### Tasha [id number] ####[facility] [address] [place] [address] Huber Prado M.D. [id number] Hemoglobin (Bld) [Mass/Vol] 9.0 g/dL Low 12.0-16.0 [facility] Comment on above: Performed By: #### L [id number] ####[facility] [address] [place] [address] Huber Prado M.D. [id number] IG ABSOLUTE 0.36 K/mcL High 0.00-0.30 [facility] Comment on above: Performed By: #### Tasha [id number] ####[facility] [address] [place], [place] [address]Nora Prado M.D. [id number] IG PERCENT 2.40 % Normal [facility] Comment on above: Result Comment: The IG parameter is the percentage of metamyelocytes, myelocytes and promyelocytes. An immature granulocyte count (IG) of 1% or more suggests the possibility of infection, an IG count of 3% is very likely related to an infection. Performed By: #### Tasha [id number] ####[facility] [address] [place] [address] Huber Prado M.D. [id number] Lymphocytes (Bld) [#/Vol] 1.72 10*3/uL Normal 0.90-4.00 [facility] Comment on above: Performed By: #### Tasha [id number] ####[facility] [address] [place] [address] Huber Prado M.D. [id number] Lymphocytes/100 WBC (Bld) 11.6 % Normal [facility] Comment on above: Performed By: #### Tasha [id number] ####[facility] [address] [place] [address] Huber Prado M.D. [id number] MCH (RBC) [Entitic mass] 30.3 pg Normal 26.0-34.0 [facility] Comment on above: Performed By: #### Tasha [id number] ####[facility] [address] [place] [address] Huber Prado M.D. [id number] MCV (RBC) [Entitic vol] 92.6 fL Normal 80.0-100.0 [facility] Comment on above: Performed By: #### L [id number] ####[facility] [address] [place] [address] Huber Prado M.D. [id number] MEAN CORPUSCULAR HEMOGLOBIN CONC 32.7 g/dL Normal 31.0-37.0 [facility] Comment on above: Performed By: #### L [id number] ####[facility] [address] [place] [address] Huber Prado M.D. [id number] Monocytes (Bld) [#/Vol] 1.03 10*3/uL High 0.30-0.90 [facility] Comment on above: Performed By: #### L [id number] ####[facility] [address] [place] [address] Huber Prado M.D. [id number] Monocytes/100 WBC (Bld) 7.0 % Normal [facility] Comment on above: Performed By: #### L [id number] ####[facility] [address] [place] [address] Huber Prado M.D. [id number] NEUTROPHILS ABSOLUTE COUNT 11.19 K/mcL High 1.70-7.00 [facility] Comment on above: Performed By: #### L [id number] ####[facility] [address] [place] [address] Huber Prado M.D. [id number] Neutrophils/100 WBC (Bld) 75.8 % Normal [facility] Comment on above: Performed By: #### L [id number] ####[facility] [address] [place], [place] [id number] Huber Prado M.D. [id number] Platelet mean volume (Bld) [Entitic vol] 10.9 fL Normal 9.4-12.4 [facility] Comment on above: Performed By: #### L [id number] ####[facility] [address] [place], [place] [id number] Huber Prado M.D. [id number] Platelets (Bld) [#/Vol] 315 10*3/uL Normal 150-400 [facility] Comment on above: Performed By: #### L [id number] ####[facility] [address] [place] [address] Huber Prado M.D. [id number] RBC (Bld) [#/Vol] 2.97 10*6/uL Low 4.00-5.20 [facility] Comment on above: Performed By: #### L [id number] ####[facility] [address] [place], [place] [address] Huber Prado M.D. [id number] WBC (Bld) [#/Vol] 14.77 10*3/uL High 4.50-11.00 [facility] Comment on above: Performed By: #### L [id number] ####[facility] [address] [place], [place] [address] Huber Prado M.D. [id number] COMPREHENSIVE METABOLIC PANE [facility] 05-04-2024 Albumin [Mass/Vol] 3.4 g/dL Normal 3.2-5.2 [facility] Comment on above: Order Comment: [facility] has implemented the eGFR calculation approach that does not have a coefficient for race that conforms to the NKF-ASN Task Force Recommendations. Performed By: #### 4 [id number] ####[facility] [address] [place] [address] Huber Prado M.D. [id number] ALP [Catalytic activity/Vol] 201 U/L High 40-140 [facility] Comment on above: Order Comment: [facility] has implemented the eGFR calculation approach that does not have a coefficient for race that conforms to the NKF-ASN Task Force Recommendations. Performed By: #### 4 [id number] ####[facility] [address] [place] [address] Huber Prado M.D. [id number] ALT [Catalytic activity/Vol] 38 U/L High 0-35 U/L [facility] Comment on above: Order Comment: [facility] has implemented the eGFR calculation approach that does not have a coefficient for race that conforms to the NKF-ASN Task Force Recommendations. Performed By: #### 4 6126 ####[facility] [address] [place] [address] 08515 Huber Prado M.D. [id number] Anion gap [Moles/Vol] 18 mmol/L Normal 10-20 [facility] Comment on above: Order Comment: [facility] has implemented the eGFR calculation approach that does not have a coefficient for race that conforms to the NKF-ASN Task Force Recommendations. Performed By: #### 4 6126 ####[facility] [address] [place] [address] 76738 Huber Prado M.D. [id number] AST [Catalytic activity/Vol] 20 U/L Normal 0-35 U/L [facility] Comment on above: Order Comment: [facility] has implemented the eGFR calculation approach that does not have a coefficient for race that conforms to the NKF-ASN Task Force Recommendations. Performed By: #### 4 6126 ####[facility] [address] [place] [address] 96583 Huber Prado M.D. [id number] Bilirubin [Mass/Vol] 0.2 mg/dL Normal 0.0-1.3 [facility] Comment on above: Order Comment: [facility] has implemented the eGFR calculation approach that does not have a coefficient for race that conforms to the NKF-ASN Task Force Recommendations. Performed By: #### 4 6126 ####[facility] [address] [place] [address] 52731 Huber Prado M.D. [id number] Calcium [Mass/Vol] 8.9 mg/dL Normal 8.4-10.2 [facility] Comment on above: Order Comment: [facility] has implemented the eGFR calculation approach that does not have a coefficient for race that conforms to the NKF-ASN Task Force Recommendations. Performed By: #### 4 6126 ####[facility] [address] [place] [address] 53696 Huber Prado M.D. [id number] Chloride [Moles/Vol] 100 mmol/L Normal 98-108 [facility] Comment on above: Order Comment: [facility] has implemented the eGFR calculation approach that does not have a coefficient for race that conforms to the NKF-ASN Task Force Recommendations. Performed By: #### 4 6126 ####[facility] [address] [place], [place] [id number] Huber Prado M.D. [id number] Creatinine [Mass/Vol] 1.76 mg/dL High 0.40-1.10 [facility] Comment on above: Order Comment: [facility] has implemented the eGFR calculation approach that does not have a coefficient for race that conforms to the NKF-ASN Task Force Recommendations. Performed By: #### 4 6126 ####[facility] [address] [place], [place] [address] Huber Prado M.D. [id number] EGFR 39 mL/min/1.73 m2 Low >=60 [facility] Comment on above: Order Comment: [facility] has implemented the eGFR calculation approach that does not have a coefficient for race that conforms to the NKF-ASN Task Force Recommendations. Result Comment: Neema mated GFR was calculated using the 2020 CKD-EPI creatinine equation. Performed By: #### 4 6126 ####[facility] [address] [place], [place] [address] Huber Prado M.D. [id number] Glucose [Mass/Vol] 114 mg/dL High 65-99 [facility] Comment on above: Order Comment: [facility] has implemented the eGFR calculation approach that does not have a coefficient for race that conforms to the NKF-ASN Task Force Recommendations. Performed By: #### 4 6126 ####[facility] [address] [place], [place] [id number] Huber Prado M.D. [id number] HCO3 (Bld) [Moles/Vol] 25 mmol/L Normal 21-32 [facility] Comment on above: Order Comment: [facility] has implemented the eGFR calculation approach that does not have a coefficient for race that conforms to the NKF-ASN Task Force Recommendations. Performed By: #### 4 6126 ####[facility] [address] [place] [address] Huber Prado M.D. [id number] Potassium [Moles/Vol] 3.5 mmol/L Normal 3.5-5.1 [facility] Comment on above: Order Comment: [facility] has implemented the eGFR calculation approach that does not have a coefficient for race that conforms to the NKF-ASN Task Force Recommendations. Performed By: #### 4 6126 ####[facility] [address] [place], [place] [id number] Huber Prado M.D. [id number] Protein [Mass/Vol] 6.7 g/dL Normal 6.0-8.0 [facility] Comment on above: Order Comment: [facility] has implemented the eGFR calculation approach that does not have a coefficient for race that conforms to the NKF-ASN Task Force Recommendations. Performed By: #### 4 6126 ####[facility] [address] [place], [place] [id number] Huber Prado M.D. [id number] Sodium [Moles/Vol] 139 mmol/L Normal 135-145 [facility] Comment on above: Order Comment: [facility] has implemented the eGFR calculation approach that does not have a coefficient for race that conforms to the NKF-ASN Task Force Recommendations. Performed By: #### 4 6126 ####[facility] [address] [place] [address] 08867 Huber Prado M.D. [id number] Urea nitrogen [Mass/Vol] 49 mg/dL High 8-25 [facility] Comment on above: Order Comment: [facility] has implemented the eGFR calculation approach that does not have a coefficient for race that conforms to the NKF-ASN Task Force Recommendations. Performed By: #### 4 6126 ####[facility] [address] [place] [address] Huber Prado M.D. [id number] Urea nitrogen/Creatinine [Mass ratio] 27.8 mg/mg High 10.0-20.0 [facility] Comment on above: Order Comment: [facility] has implemented the eGFR calculation approach that does not have a coefficient for race that conforms to the NKF-ASN Task Force Recommendations. Performed By: #### 4 6126 ####[facility] [address] [place] [address] Huber Prado M.D. [id number] POC GLUCOSE [facility] 024 Glucose [Mass/Vol] 105 mg/dL High -[address] [place] [address] Comment on above: Performed By: #### 4 6932 ####[facility] [address] [place] [address] [id number] [facility] Glucose [Mass/Vol] 102 mg/dL High [address] [place] [address] Comment on above: Performed By: #### 4 6932 ####[facility] [address] [place] [address] [id number] [facility] Glucose [Mass/Vol] 107 mg/dL High -[address] [place] [address] Comment on above: Performed By: #### 4 6942 ####[facility] [address] [place] [address] [id number] [facility] Glucose [Mass/Vol] 109 mg/dL High [address] [place] [address] Comment on above: Performed By: #### 4 6913 ####[facility] [address] [place] [address] [id number] [facility] Glucose [Mass/Vol] 123 mg/dL High [address] [place] [address] Comment on above: Performed By: #### 4 6932 ####[facility] [address] [place] [address] [id number] [facility] Glucose [Mass/Vol] 114 mg/dL High 65-99 [facility] Comment on above: Performed By: #### 4 6932 ####[facility] [address] [place] [address] [id number] [facility] POTASSIUM LEVELon 05-04-2024 Potassium [Moles/Vol] 4.2 mmol/L Normal 3.5-5.1 [facility] Comment on above: Performed By: #### 4 6351 ####[facility] [address] [place], [place] [id number] Huber Prado M.D. [id number] US DUPLEX VENOUS LEGS BILATE RALon 05-04-2024 US DUPLEX VENOUS LEGS BILATERAL Normal [facility] VANCOMYCIN LEVEL, RANDOMon 0 05-04-2024 VANCOMYCIN RANDOM 21.2 mcg/mL Normal [facility] Comment on above: Order Comment: As of 05/2022 vancomycin dosing for [facility] inpatients will be done by Bayesian dosing software rather than off traditional trough values. Please contact the site specific inpatient pharmacy before making dose changes off of trough values alone for admitted patients.No established reference range. Performed By: #### 4 6651 ####[facility] [address] [place], [place] [id number] Huber Prado M.D. [id number] BASIC METABOLIC PANELon Anion gap [Moles/Vol] 20 mmol/L Normal 10-20 [facility] Comment on above: Order Comment: [facility] has implemented the eGFR calculation approach that does not have a coefficient for race that conforms to the NKF-ASN Task Force Recommendations. Performed By: #### 4 6124 ####[facility] [address] [place] [address] 32507 Huber Prado M.D. [id number] Calcium [Mass/Vol] 9.0 mg/dL Normal 8.4-10.2 [facility] Comment on above: Order Comment: [facility] has implemented the eGFR calculation approach that does not have a coefficient for race that conforms to the NKF-ASN Task Force Recommendations. Performed By: #### 4 6124 ####[facility] [address] [place] [address] 80890 Huber Prado M.D. [id number] Chloride [Moles/Vol] 96 mmol/L Low 98-108 [facility] Comment on above: Order Comment: [facility] has implemented the eGFR calculation approach that does not have a coefficient for race that conforms to the NKF-ASN Task Force Recommendations. Performed By: #### 4 6124 ####[facility] [address] [place], [place] [address] Huber Prado M.D. [id number] Creatinine [Mass/Vol] 1.31 mg/dL High 0.40-1.10 [facility] Comment on above: Order Comment: [facility] has implemented the eGFR calculation approach that does not have a coefficient for race that conforms to the NKF-ASN Task Force Recommendations. Performed By: #### 4 6124 ####[facility] [address] [place], [place] [address] Huber Prado M.D. [id number] EGFR 55 mL/min/1.73 m2 Low >=60 [facility] Comment on above: Order Comment: [facility] has implemented the eGFR calculation approach that does not have a coefficient for race that conforms to the NKF-ASN Task Force Recommendations. Result Comment: Neema mated GFR was calculated using the 2020 CKD-EPI creatinine equation. Performed By: #### 4 6124 ####[facility] [address] [place] [address] 71891 Huber Prado M.D. [id number] Glucose [Mass/Vol] 144 mg/dL High 65-99 [facility] Comment on above: Order Comment: [facility] has implemented the eGFR calculation approach that does not have a coefficient for race that conforms to the NKF-ASN Task Force Recommendations. Performed By: #### 4 6124 ####[facility] [address] [place] [address] 51538 Huber Prado M.D. [id number] HCO3 (Bld) [Moles/Vol] 25 mmol/L Normal 21-32 [facility] Comment on above: Order Comment: [facility] has implemented the eGFR calculation approach that does not have a coefficient for race that conforms to the NKF-ASN Task Force Recommendations. Performed By: #### 4 6124 ####[facility] [address] [place] [address] 85849 Huber Prado M.D. [id number] Potassium [Moles/Vol] 3.4 mmol/L Low 3.5-5.1 [facility] Comment on above: Order Comment: [facility] has implemented the eGFR calculation approach that does not have a coefficient for race that conforms to the NKF-ASN Task Force Recommendations. Result Comment: Slig htly Hemolyzed Performed By: #### 4 6124 ####[facility] [address] [place] [address] 56124 Huber Prado M.D. [id number] Sodium [Moles/Vol] 138 mmol/L Normal 135-145 [facility] Comment on above: Order Comment: [facility] has implemented the eGFR calculation approach that does not have a coefficient for race that conforms to the NKF-ASN Task Force Recommendations. Performed By: #### 4 6124 ####[facility] [address] [place] [address] 85389 Huber Prado M.D. [id number] Urea nitrogen [Mass/Vol] 38 mg/dL High 8-25 [facility] Comment on above: Order Comment: [facility] has implemented the eGFR calculation approach that does not have a coefficient for race that conforms to the NKF-ASN Task Force Recommendations. Performed By: #### 4 6124 ####[facility] [address] [place] [address] 90212 Huber Prado M.D. [id number] Urea nitrogen/Creatinine [Mass ratio] 29.0 mg/mg High 10.0-20.0 [facility] Comment on above: Order Comment: [facility] has implemented the eGFR calculation approach that does not have a coefficient for race that conforms to the NKF-ASN Task Force Recommendations. Performed By: #### 4 6124 ####[facility] [address] [place], [place] [address] Huber Prado M.D. [id number] BLOOD CULTURE AEROBIC/ANAERO BICon 05-03-2024 BLOOD CULTURE AEROBIC/ANAEROBIC BLOOD CULTURE No Growth after 5 days [facility] Comment on above: Performed By: #### 4 4014 ####[facility] [address] [place], [place] [address] Huber Prado M.D. [id number] BLOOD CULTURE AEROBIC/ANAEROBIC BLOOD CULTURE No Growth after 5 days [facility] Comment on above: Performed By: #### 4 4014 ####[facility] [address] [place], [place] [address] Huber Prado M.D. [id number] CBC WITH AUTO DIFFERENTIALon 05-03-2024 AUTO NRBC 0.0 % Normal [facility] Comment on above: Performed By: #### L [id number] ####[facility] [address] [place], [place] [address] Huber Prado M.D. [id number] AUTO NRBC ABS COUNT 0.00 K/mcL Normal 0.00-0.00 [facility] Comment on above: Performed By: #### L [id number] ####[facility] [address] [place], [place] [address] Huber Prado M.D. [id number] BASOPHILS ABSOLUTE COUNT 0.15 K/mcL Normal 0.00-0.30 [facility] Comment on above: Performed By: #### L [id number] ####[facility] [address] [place] [address] 19419 Huber Prado M.D. [id number] Basophils/100 WBC (Bld) 0.8 % Normal [facility] Comment on above: Performed By: #### L [id number] ####[facility] [address] [place] [address] Huber Prado M.D. [id number] Eosinophils (Bld) [#/Vol] 0.47 10*3/uL Normal 0.00-0.50 [facility] Comment on above: Performed By: #### L [id number] ####[facility] [address] [place], [place] [address] Huber Prado M.D. [id number] Eosinophils/100 WBC (Bld) 2.5 % Normal [facility] Comment on above: Performed By: #### Tasha [id number] ####[facility] [address] [place], [place] [address] Huber Prado M.D. [id number] Erythrocyte distribution width (RBC) [Ratio] 14.5 % Normal 11.6-14.8 [facility] Comment on above: Performed By: #### L [id number] ####[facility] [address] [place], [place] [address] Huber Prado M.D. [id number] Hematocrit (Bld) [Volume fraction] 30.8 % Low 36.0-46.0 [facility] Comment on above: Performed By: #### L [id number] ####[facility] [address] [place] [address] 99128 Huber Prado M.D. [id number] Hemoglobin (Bld) [Mass/Vol] 10.4 g/dL Low 12.0-16.0 [facility] Comment on above: Performed By: #### Tasha [id number] ####[facility] [address] [place] [address] Huber Prado M.D. [id number] IG ABSOLUTE 0.64 K/mcL High 0.00-0.30 [facility] Comment on above: Performed By: #### L [id number] ####[facility] [address] [place] [address] Huber Prado M.D. [id number] IG PERCENT 3.40 % Normal [facility] Comment on above: Result Comment: The IG parameter is the percentage of metamyelocytes, myelocytes and promyelocytes. An immature granulocyte count (IG) of 1% or more suggests the possibility of infection, an IG count of 3% is very likely related to an infection. Performed By: #### Tasha [id number] ####[facility] [address] [place] [address] Huber Prado M.D. [id number] Lymphocytes (Bld) [#/Vol] 1.75 10*3/uL Normal 0.90-4.00 [facility] Comment on above: Performed By: #### L [id number] ####[facility] [address] [place] [address] Huber Prado M.D. [id number] Lymphocytes/100 WBC (Bld) 9.2 % Normal [facility] Comment on above: Performed By: #### L [id number] ####[facility] [address] [place], [place] [id number] Huber Prado M.D. [id number] MCH (RBC) [Entitic mass] 31.3 pg Normal 26.0-34.0 [facility] Comment on above: Performed By: #### Tasha [id number] ####[facility] [address] [place], [place] [address]Nora Prado M.D. [id number] MCV (RBC) [Entitic vol] 92.8 fL Normal 80.0-100.0 [facility] Comment on above: Performed By: #### Tasha [id number] ####[facility] [address] [place] [address] Huber Prado M.D. [id number] MEAN CORPUSCULAR HEMOGLOBIN CONC 33.8 g/dL Normal 31.0-37.0 [facility] Comment on above: Performed By: #### Tasha [id number] ####[facility] [address] [place] [address] Huber Prado M.D. [id number] Monocytes (Bld) [#/Vol] 1.49 10*3/uL High 0.30-0.90 [facility] Comment on above: Performed By: #### Tasha [id number] ####[facility] [address] [place] [address] Huber Prado M.D. [id number] Monocytes/100 WBC (Bld) 7.9 % Normal [facility] Comment on above: Performed By: #### Tasha [id number] ####[facility] [address] [place], [place] [address] Huber Prado M.D. [id number] NEUTROPHILS ABSOLUTE COUNT 14.47 K/mcL High 1.70-7.00 [facility] Comment on above: Performed By: #### L [id number] ####[facility] [address] [place], [place] [address] Huber Prado M.D. [id number] Neutrophils/100 WBC (Bld) 76.2 % Normal [facility] Comment on above: Performed By: #### L [id number] ####[facility] [address] [place], [place] [address] Huber Prado M.D. [id number] Platelet mean volume (Bld) [Entitic vol] 10.9 fL Normal 9.4-12.4 [facility] Comment on above: Performed By: #### L [id number] ####[facility] [address] [place] [address] 45209 Huber Prado M.D. [id number] Platelets (Bld) [#/Vol] 314 10*3/uL Normal 150-400 [facility] Comment on above: Performed By: #### L [id number] ####[facility] [address] [place] [address] Huber Prado M.D. [id number] RBC (Bld) [#/Vol] 3.32 10*6/uL Low 4.00-5.20 [facility] Comment on above: Performed By: #### L [id number] ####[facility] [address] [place], [place] [address] Huber Prado M.D. [id number] WBC (Bld) [#/Vol] 18.97 10*3/uL High 4.50-11.00 [facility] Comment on above: Performed By: #### L [id number] ####[facility] [address] [place] [address] 99079 Huber Prado M.D. [id number] CONSULTon 05-03-2024 CONSULT Normal [facility] HEPATIC FUNCTION PANELon Albumin [Mass/Vol] 3.4 g/dL Normal 3.2-5.2 [facility] Comment on above: Performed By: #### 4 5866 ####[facility] [address] [place] [address] 68546 Huber Prado M.D. [id number] ALP [Catalytic activity/Vol] 219 U/L High 40-140 [facility] Comment on above: Performed By: #### 4 5866 ####[facility] [address] [place] [address] 80280 Huber Prado M.D. [id number] ALT [Catalytic activity/Vol] 47 U/L High 0-35 U/L [facility] Comment on above: Performed By: #### 4 5866 ####[facility] [address] [place] [address] Huber Prado M.D. [id number] AST [Catalytic activity/Vol] 26 U/L Normal 0-35 U/L [facility] Comment on above: Performed By: #### 4 5866 ####[facility] [address] [place], [place] [address] Huber Prado M.D. [id number] Bilirubin [Mass/Vol] 0.2 mg/dL Normal 0.0-1.3 [facility] Comment on above: Performed By: #### 4 5866 ####[facility] [address] [place] [address] Huber Prado M.D. [id number] Bilirubin.indirect [Mass/Vol] 0.9 mg/dL High 0.0-0.4 [facility] Comment on above: Performed By: #### 4 5866 ####[facility] [address] [place], [place] [address] Huber Prado M.D. [id number] Protein [Mass/Vol] 6.7 g/dL Normal 6.0-8.0 [facility] Comment on above: Performed By: #### 4 5866 ####[facility] [address] [place], [place] [address] Huber Prado M.D. [id number] LIPASEon 05-03-2024 Lipase [Catalytic activity/Vol] 154 U/L High 15-65 [facility] Comment on above: Performed By: #### 4 6086 ####[facility] [address] [place], [place] [address]Nora Prado M.D. [id number] MRSA DNA AMPLIFIED PROBEon 0 05-03-2024 MRSA DNA AMPLIFIED PROBE Not detected Normal Not Detected, MRSA NEGATIVE [facility] Comment on above: Performed By: #### 4 8061 ####[facility] [address] [place] [address] Huber Prado M.D. [id number] POC GLUCOSE [facility] 024 Glucose [Mass/Vol] 121 mg/dL High [address] [place] [address] Comment on above: Performed By: #### 4 6932 ####[facility] [address] [place] [address] [id number] [facility] Glucose [Mass/Vol] 128 mg/dL [address] Comment on above: Performed By: #### 4 6912 ####[facility] [address] [place] [address] [id number] [facility] Glucose [Mass/Vol] 136 mg/dL [address] Comment on above: Performed By: #### 4 2937 ####[facility] [address] [place] [address] [id number] [facility] Glucose [Mass/Vol] 137 mg/dL [address] Comment on above: Performed By: #### 4 3147 ####[facility] [address] [place] [address] [id number] [facility] Glucose [Mass/Vol] 145 mg/dL [address] Comment on above: Performed By: #### 4 5665 ####[facility] [address] [place] [address] [id number] [facility] Glucose [Mass/Vol] 153 mg/dL [address] Comment on above: Performed By: #### 4 8547 ####[facility] [address] [place] [address] [id number] [facility] Glucose [Mass/Vol] 141 mg/dL [address] Comment on above: Performed By: #### 4 6932 ####[facility] [address] [place] [address] [id number] [facility] Glucose [Mass/Vol] 149 mg/dL High 65-99 [facility] Comment on above: Performed By: #### 4 6932 ####[facility] [address] [place] [address] [id number] [facility] POTASSIUM LEVELon 05-03-2024 Potassium [Moles/Vol] 4.5 mmol/L Normal 3.5-5.1 [facility] Comment on above: Result Comment: Slig htly Hemolyzed Performed By: #### 4 6351 ####[facility] [address] [place] [address] Huber Prado M.D. [id number] SPUTUM AEROBIC CULTUREon SPUTUM AEROBIC CULTURE RESPIRATORY CULTU RE Normal Fang after 48 hrs GRAM STAIN RESULT Many WBC Rare Epithelial Cells No Organisms Seen Normal [facility] Comment on above: Performed By: #### 4 4046 ####[facility] [address] [place] [address] Huber Prado M.D. [id number] URINALYSISon 05-03-2024 BACTERIA, URINE Rare Abnormal None Seen [facility] Comment on above: Order Comment: Micro scopic examination is performed on all urinalysis samples and only positive findings are reported. The test for blood on the chemical analytic portion of urinalysis may also be positive due to hemoglobinuria and myoglobinuria and if red blood cells are present they are quantified by microscopic examination. Performed By: #### 4 6625 ####[facility] [address] [place], [place] [id number] Huber Prado M.D. [id number] BILIRUBIN, URINE Negative Normal Negative [facility] Comment on above: Order Comment: Micro scopic examination is performed on all urinalysis samples and only positive findings are reported. The test for blood on the chemical analytic portion of urinalysis may also be positive due to hemoglobinuria and myoglobinuria and if red blood cells are present they are quantified by microscopic examination. Performed By: #### 4 6625 ####[facility] [address] [place] [address] Huber Prado M.D. [id number] BLOOD, URINE Small Abnormal Negative [facility] Comment on above: Order Comment: Micro scopic examination is performed on all urinalysis samples and only positive findings are reported. The test for blood on the chemical analytic portion of urinalysis may also be positive due to hemoglobinuria and myoglobinuria and if red blood cells are present they are quantified by microscopic examination. Performed By: #### 4 6625 ####[facility] [address] [place] [address] Huber Prado M.D. [id number] BUDDING YEAST, URINE Many Abnormal None Seen [facility] Comment on above: Order Comment: Micro [...] lts checked. Performed By: #### 4 6625 ####[facility] [address] [place] [address] Huber Prado M.D. [id number] Clarity (U) Clear Normal Clear [facility] Comment on above: Order Comment: Micro scopic examination is performed on all urinalysis samples and only positive findings are reported. The test for blood on the chemical analytic portion of urinalysis may also be positive due to hemoglobinuria and myoglobinuria and if red blood cells are present they are quantified by microscopic examination. Performed By: #### 4 6696 ####[facility] [address] [place] [address] Huber Prado M.D. [id number] Color (U) Yellow Normal Colorless, Yellow [facility] Comment on above: Order Comment: Micro scopic examination is performed on all urinalysis samples and only positive findings are reported. The test for blood on the chemical analytic portion of urinalysis may also be positive due to hemoglobinuria and myoglobinuria and if red blood cells are present they are quantified by microscopic examination. Performed By: #### 4 6625 ####[facility] [address] [place] [address] Huber Prado M.D. [id number] Glucose Ql (U) Negative Normal Negative [facility] Comment on above: Order Comment: Micro scopic examination is performed on all urinalysis samples and only positive findings are reported. The test for blood on the chemical analytic portion of urinalysis may also be positive due to hemoglobinuria and myoglobinuria and if red blood cells are present they are quantified by microscopic examination. Performed By: #### 4 6625 ####[facility] [address] [place] [address] Huber Prado M.D. [id number] Ketones Ql (U) Negative Normal Negative [facility] Comment on above: Order Comment: Micro scopic examination is performed on all urinalysis samples and only positive findings are reported. The test for blood on the chemical analytic portion of urinalysis may also be positive due to hemoglobinuria and myoglobinuria and if red blood cells are present they are quantified by microscopic examination. Performed By: #### 4 6625 ####[facility] [address] [place] [address] Huber Prado M.D. [id number] Leukocyte esterase Test strip Ql (U) Moderate Abnormal Negative [facility] Comment on above: Order Comment: Micro scopic examination is performed on all urinalysis samples and only positive findings are reported. The test for blood on the chemical analytic portion of urinalysis may also be positive due to hemoglobinuria and myoglobinuria and if red blood cells are present they are quantified by microscopic examination. Performed By: #### 4 6625 ####[facility] [address] [place] [address] Huber Prado M.D. [id number] MUCUS, URINE Rare Normal None Seen, Rare [facility] Comment on above: Order Comment: Micro scopic examination is performed on all urinalysis samples and only positive findings are reported. The test for blood on the chemical analytic portion of urinalysis may also be positive due to hemoglobinuria and myoglobinuria and if red blood cells are present they are quantified by microscopic examination. Performed By: #### 4 6625 ####[facility] [address] [place] [address] Huber Prado M.D. [id number] NITRITE, URINE Negative Normal Negative [facility] Comment on above: Order Comment: Micro scopic examination is performed on all urinalysis samples and only positive findings are reported. The test for blood on the chemical analytic portion of urinalysis may also be positive due to hemoglobinuria and myoglobinuria and if red blood cells are present they are quantified by microscopic examination. Performed By: #### 4 6625 ####[facility] [address] [place] [address] Huber Prado M.D. [id number] pH (U) 7.0 [pH] Normal 5.0-7.0 [facility] Comment on above: Order Comment: Micro scopic examination is performed on all urinalysis samples and only positive findings are reported. The test for blood on the chemical analytic portion of urinalysis may also be positive due to hemoglobinuria and myoglobinuria and if red blood cells are present they are quantified by microscopic examination. Performed By: #### 4 6625 ####[facility] [address] [place], [place] [id number] Huber Prado M.D. [id number] Protein (U) [Mass/Vol] 30 mg/dL Abnormal Negative [facility] Comment on above: Order Comment: Micro [...] ammonium compounds. Performed By: #### 4 6625 ####[facility] [address] [place] [address] Huber Prado M.D. [id number] RBC LM.HPF (Urine sed) [#/Area] 3 /[HPF] Normal 0-3 [facility] Comment on above: Order Comment: Micro scopic examination is performed on all urinalysis samples and only positive findings are reported. The test for blood on the chemical analytic portion of urinalysis may also be positive due to hemoglobinuria and myoglobinuria and if red blood cells are present they are quantified by microscopic examination. Performed By: #### 4 6625 ####[place] [address] Huber Prado M.D. [id number] Specific gravity (U) [Rel density] 1.013 Normal 1.005-1.025 [facility] Comment on above: Order Comment: Micro scopic examination is performed on all urinalysis samples and only positive findings are reported. The test for blood on the chemical analytic portion of urinalysis may also be positive due to hemoglobinuria and myoglobinuria and if red blood cells are present they are quantified by microscopic examination. Performed By: #### 4 6625 ####[facility] [address] [place] [address] Huber Prado M.D. [id number] SQUAMOUS EPITHELIAL 2 /hpf Normal 0-4 [facility] Comment on above: Order Comment: Micro scopic examination is performed on all urinalysis samples and only positive findings are reported. The test for blood on the chemical analytic portion of urinalysis may also be positive due to hemoglobinuria and myoglobinuria and if red blood cells are present they are quantified by microscopic examination. Performed By: #### 4 6680 ####[facility] [address] [place] [address] Huber Prado M.D. [id number] TRANSITIONAL EPITHELIAL 2 /hpf High 0-1 [facility] Comment on above: Order Comment: Micro [...] lts checked. Performed By: #### 4 6625 ####[facility] [address] [place], [place] [id number] Huber Prado M.D. [id number] UROBILINOGEN, URINE <2.0 Normal <2.0 [facility] Comment on above: Order Comment: Micro scopic examination is performed on all urinalysis samples and only positive findings are reported. The test for blood on the chemical analytic portion of urinalysis may also be positive due to hemoglobinuria and myoglobinuria and if red blood cells are present they are quantified by microscopic examination. Performed By: #### 4 6625 ####[facility] [address] [place] [address] Huber Prado M.D. [id number] WBC CLUMPS, URINE Rare Abnormal None Seen [facility] Comment on above: Order Comment: Micro scopic examination is performed on all urinalysis samples and only positive findings are reported. The test for blood on the chemical analytic portion of urinalysis may also be positive due to hemoglobinuria and myoglobinuria and if red blood cells are present they are quantified by microscopic examination. Performed By: #### 4 6625 ####[facility] [address] [place] [id number] Huber Prado M.D. [id number] WBC LM.HPF (Urine sed) [#/Area] 8 /[HPF] High 0-5 [facility] Comment on above: Order Comment: Micro scopic examination is performed on all urinalysis samples and only positive findings are reported. The test for blood on the chemical analytic portion of urinalysis may also be positive due to hemoglobinuria and myoglobinuria and if red blood cells are present they are quantified by microscopic examination. Performed By: #### 4 6683 ####[facility] [address] [place], [place] [id number] Huber Prado M.D. [id number] URINE AEROBIC CULTUREon 09-0 URINE AEROBIC CULTURE URINE CULTURE No Growth (<1,000 CFU/mL) Normal [facility] Comment on above: Performed By: #### 4 4053 ####[facility] [address] [place] [id number] Huber Prado M.D. [id number] US DUPLEX VENOUS LEGS BILATE RALon 05-03-2024 US DUPLEX VENOUS LEGS BILATERAL Normal [facility] VANCOMYCIN LEVEL, RANDOMon 0 05-03-2024 VANCOMYCIN RANDOM < Normal [facility] Comment on above: Order Comment: As of 05/2022 vancomycin dosing for [facility] inpatients will be done by Bayesian dosing software rather than off traditional trough values. Please contact the site specific inpatient pharmacy before making dose changes off of trough values alone for admitted patients.No established reference range. Performed By: #### 4 6651 ####[facility] [address] [place] [address] Huber Prado M.D. [id number] POC GLUCOSE - [facility] 024 Glucose [Mass/Vol] 108 mg/dL High 65-99 [facility] Comment on above: Performed By: #### 4 6960 ####[facility] [address] [place] [address] [id number] [facility] Glucose [Mass/Vol] 132 mg/dL High 65-99 [facility] Comment on above: Performed By: #### 4 6972 ####[facility] [address] [place] [address] [id number] [facility] Glucose [Mass/Vol] 94 mg/dL Normal 65-99 [facility] Comment on above: Performed By: #### 4 3781 ####[facility] [address] [place] [address] [id number] [facility] Glucose [Mass/Vol] 133 mg/dL High 65- [facility] Comment on above: Performed By: #### 4 6932 ####[facility] [address] [place] [address] [id number] [facility] Glucose [Mass/Vol] 152 mg/dL High 65- [facility] Comment on above: Performed By: #### 4 6932 ####[facility] [address] [place] [address] [id number] [facility] Glucose [Mass/Vol] 150 mg/dL High - [facility] Comment on above: Performed By: #### 4 6932 ####[facility] [address] [place] [address] [id number] [facility] BASIC METABOLIC PANELon Anion gap [Moles/Vol] 19 mmol/L Normal 10-20 [facility] Comment on above: Order Comment: [facility] has implemented the eGFR calculation approach that does not have a coefficient for race that conforms to the NKF-ASN Task Force Recommendations. Performed By: #### 4 6124 ####[facility] [address] [place] [address] Huber Prado M.D. [id number] Calcium [Mass/Vol] 7.9 mg/dL Low 8.4-10.2 [facility] Comment on above: Order Comment: [facility] has implemented the eGFR calculation approach that does not have a coefficient for race that conforms to the NKF-ASN Task Force Recommendations. Performed By: #### 4 6124 ####[facility] [address] [place], [place] [id number] Huber Prado M.D. [id number] Chloride [Moles/Vol] 101 mmol/L Normal 98-108 [facility] Comment on above: Order Comment: [facility] has implemented the eGFR calculation approach that does not have a coefficient for race that conforms to the NKF-ASN Task Force Recommendations. Performed By: #### 4 6124 ####[facility] [address] [place] [address] Huber Prado M.D. [id number] Creatinine [Mass/Vol] 1.78 mg/dL High 0.40-1.10 [facility] Comment on above: Order Comment: [facility] has implemented the eGFR calculation approach that does not have a coefficient for race that conforms to the NKF-ASN Task Force Recommendations. Performed By: #### 4 6124 ####[facility] [address] [place] [address] Huber Prado M.D. [id number] EGFR 38 mL/min/1.73 m2 Low >=60 [facility] Comment on above: Order Comment: [facility] has implemented the eGFR calculation approach that does not have a coefficient for race that conforms to the NKF-ASN Task Force Recommendations. Result Comment: Neema mated GFR was calculated using the 2020 CKD-EPI creatinine equation. Performed By: #### 4 6124 ####[facility] [address] [place] [address] Huber Prado M.D. [id number] Glucose [Mass/Vol] 151 mg/dL High 65-99 [facility] Comment on above: Order Comment: [facility] has implemented the eGFR calculation approach that does not have a coefficient for race that conforms to the NKF-ASN Task Force Recommendations. Performed By: #### 4 6124 ####[facility] [address] [place] [address] Huber Prado M.D. [id number] HCO3 (Bld) [Moles/Vol] 28 mmol/L Normal 21-32 [facility] Comment on above: Order Comment: [facility] has implemented the eGFR calculation approach that does not have a coefficient for race that conforms to the NKF-ASN Task Force Recommendations. Performed By: #### 4 6124 ####[facility] [address] [place] [address] Huber Prado M.D. [id number] Potassium [Moles/Vol] 4.4 mmol/L Normal 3.5-5.1 [facility] Comment on above: Order Comment: [facility] has implemented the eGFR calculation approach that does not have a coefficient for race that conforms to the NKF-ASN Task Force Recommendations. Performed By: #### 4 6124 ####[facility] [address] [place] [address] Huber Prado M.D. [id number] Sodium [Moles/Vol] 144 mmol/L Normal 135-145 [facility] Comment on above: Order Comment: [facility] has implemented the eGFR calculation approach that does not have a coefficient for race that conforms to the NKF-ASN Task Force Recommendations. Performed By: #### 4 6124 ####[facility] [address] [place] [address] Huber Prado M.D. [id number] Urea nitrogen [Mass/Vol] 52 mg/dL High 8-25 [facility] Comment on above: Order Comment: [facility] has implemented the eGFR calculation approach that does not have a coefficient for race that conforms to the NKF-ASN Task Force Recommendations. Performed By: #### 4 6124 ####[facility] [address] [place] [address] Huber Prado M.D. [id number] Urea nitrogen/Creatinine [Mass ratio] 29.2 mg/mg High 10.0-20.0 [facility] Comment on above: Order Comment: [facility] has implemented the eGFR calculation approach that does not have a coefficient for race that conforms to the NKF-ASN Task Force Recommendations. Performed By: #### 4 6124 ####[facility] [address] [place] [address] Huber Prado M.D. [id number] Anion gap [Moles/Vol] 24 mmol/L High 10-20 [facility] Comment on above: Order Comment: [facility] has implemented the eGFR calculation approach that does not have a coefficient for race that conforms to the NKF-ASN Task Force Recommendations. Performed By: #### 4 6124 ####[facility] [address] [place] [address] Huber Prado M.D. [id number] Calcium [Mass/Vol] 9.2 mg/dL Normal 8.4-10.2 [facility] Comment on above: Order Comment: [facility] has implemented the eGFR calculation approach that does not have a coefficient for race that conforms to the NKF-ASN Task Force Recommendations. Performed By: #### 4 6124 ####[facility] [address] [place], [place] [id number] Huber Prado M.D. [id number] Chloride [Moles/Vol] 100 mmol/L Normal 98-108 [facility] Comment on above: Order Comment: [facility] has implemented the eGFR calculation approach that does not have a coefficient for race that conforms to the NKF-ASN Task Force Recommendations. Performed By: #### 4 6124 ####[facility] [address] [place] [address] Huber Prado M.D. [id number] Creatinine [Mass/Vol] 3.74 mg/dL High 0.40-1.10 [facility] Comment on above: Order Comment: [facility] has implemented the eGFR calculation approach that does not have a coefficient for race that conforms to the NKF-ASN Task Force Recommendations. Performed By: #### 4 6124 ####[facility] [address] [place] [address] Huber Prado M.D. [id number] EGFR 16 mL/min/1.73 m2 Low >=60 [facility] Comment on above: Order Comment: [facility] has implemented the eGFR calculation approach that does not have a coefficient for race that conforms to the NKF-ASN Task Force Recommendations. Result Comment: Neema mated GFR was calculated using the 2020 CKD-EPI creatinine equation. Performed By: #### 4 6124 ####[facility] [address] [place], [place] [id number] Huber Prado M.D. [id number] Performed By: #### 4 6449 ####[facility] [address] [place] [address] Huber Prado M.D. [id number] Glucose [Mass/Vol] 202 mg/dL High 65-99 [facility] Comment on above: Order Comment: [facility] has implemented the eGFR calculation approach that does not have a coefficient for race that conforms to the NKF-ASN Task Force Recommendations. Performed By: #### 4 6124 ####[facility] [address] [place] [address] Huber Prado M.D. [id number] HCO3 (Bld) [Moles/Vol] 24 mmol/L Normal 21-32 [facility] Comment on above: Order Comment: [facility] has implemented the eGFR calculation approach that does not have a coefficient for race that conforms to the NKF-ASN Task Force Recommendations. Performed By: #### 4 6124 ####[facility] [address] [place] [address] Huber Prado M.D. [id number] Potassium [Moles/Vol] 3.5 mmol/L Normal 3.5-5.1 [facility] Comment on above: Order Comment: [facility] has implemented the eGFR calculation approach that does not have a coefficient for race that conforms to the NKF-ASN Task Force Recommendations. Result Comment: Slig htly Hemolyzed Performed By: #### 4 6124 ####[facility] [address] [place] [address] Huber Prado M.D. [id number] Sodium [Moles/Vol] 144 mmol/L Normal 135-145 [facility] Comment on above: Order Comment: [facility] has implemented the eGFR calculation approach that does not have a coefficient for race that conforms to the NKF-ASN Task Force Recommendations. Performed By: #### 4 6124 ####[facility] [address] [place], [place] [id number] Huber Prado M.D. [id number] Urea nitrogen [Mass/Vol] 102 mg/dL Off scale high 8-25 [facility] Comment on above: Order Comment: [facility] has implemented the eGFR calculation approach that does not have a coefficient for race that conforms to the NKF-ASN Task Force Recommendations. Performed By: #### 4 [id number] ####[facility] [address] [place], [place] [id number] Huber Prado M.D. [id number] Urea nitrogen/Creatinine [Mass ratio] 27.3 mg/mg High 10.0-20.0 [facility] Comment on above: Order Comment: [facility] has implemented the eGFR calculation approach that does not have a coefficient for race that conforms to the NKF-ASN Task Force Recommendations. Performed By: #### 4 [id number] ####[facility] [address] [place] [address] Huber Prado M.D. [id number] CBC WITH AUTO DIFFERENTIALon 05-01-2024 AUTO NRBC 0.0 % Normal [facility] Comment on above: Performed By: #### L [id number] ####[facility] [address] [place] [address] 457[address] Huber Prado M.D. [id number] AUTO NRBC ABS COUNT 0.00 K/mcL Normal 0.00-0.00 [facility] Comment on above: Performed By: #### L [id number] ####[facility] [address] [place] [address] Huber Prado M.D. [id number] BASOPHILS ABSOLUTE COUNT 0.13 K/mcL Normal 0.00-0.30 [facility] Comment on above: Performed By: #### L [id number] ####[facility] [address] [place] [address] Huber Prado M.D. [id number] Basophils/100 WBC (Bld) 0.7 % Normal [facility] Comment on above: Performed By: #### L [id number] ####[facility] [address] [place] [address] Huber Prado M.D. [id number] Eosinophils (Bld) [#/Vol] 0.28 10*3/uL Normal 0.00-0.50 [facility] Comment on above: Performed By: #### L [id number] ####[facility] [address] [place] [address] Huber Prado M.D. [id number] Eosinophils/100 WBC (Bld) 1.5 % Normal [facility] Comment on above: Performed By: #### L [id number] ####[facility] [address] [place] [address] Huber Prado M.D. [id number] Erythrocyte distribution width (RBC) [Ratio] 15.2 % High 11.6-14.8 [facility] Comment on above: Performed By: #### L [id number] ####[facility] [address] [place] [address] Huber Prado M.D. [id number] Hematocrit (Bld) [Volume fraction] 32.5 % Low 36.0-46.0 [facility] Comment on above: Performed By: #### L [id number] ####[facility] [address] [place], [place] [id number] Huber Prado M.D. [id number] Hemoglobin (Bld) [Mass/Vol] 10.5 g/dL Low 12.0-16.0 [facility] Comment on above: Performed By: #### L [id number] ####[facility] [address] [place] [address] Huber Prado M.D. [id number] IG ABSOLUTE 0.64 K/mcL High 0.00-0.30 [facility] Comment on above: Performed By: #### L [id number] ####[facility] [address] [place] [address] Huber Prado M.D. [id number] IG PERCENT 3.40 % Normal [facility] Comment on above: Result Comment: The IG parameter is the percentage of metamyelocytes, myelocytes and promyelocytes. An immature granulocyte count (IG) of 1% or more suggests the possibility of infection, an IG count of 3% is very likely related to an infection. Performed By: #### L [id number] ####[facility] [address] [place] [address] Huber Pardo M.D. [id number] Lymphocytes (Bld) [#/Vol] 1.57 10*3/uL Normal 0.90-4.00 [facility] Comment on above: Performed By: #### L [id number] ####[facility] [address] [place], [place] [id number] Huber Prado M.D. [id number] Lymphocytes/100 WBC (Bld) 8.3 % Normal [facility] Comment on above: Performed By: #### L [id number] ####[facility] [address] [place], [place] [id number] Huber Prado M.D. [id number] MCH (RBC) [Entitic mass] 30.3 pg Normal 26.0-34.0 [facility] Comment on above: Performed By: #### L [id number] ####[facility] [address] [place] [address] Huber Prado M.D. [id number] MCV (RBC) [Entitic vol] 93.9 fL Normal 80.0-100.0 [facility] Comment on above: Performed By: #### L [id number] ####[facility] [address] [place] [address] Huber Pardo M.D. [id number] MEAN CORPUSCULAR HEMOGLOBIN CONC 32.3 g/dL Normal 31.0-37.0 [facility] Comment on above: Performed By: #### Tasha [id number] ####[facility] [address] [place] [address] Huber Prado M.D. [id number] Monocytes (Bld) [#/Vol] 2.37 10*3/uL High 0.30-0.90 [facility] Comment on above: Performed By: #### Tasha [id number] ####[facility] [address] [place] [address] Huber Prado M.D. [id number] Monocytes/100 WBC (Bld) 12.5 % Normal [facility] Comment on above: Performed By: #### Tasha [id number] ####[facility] [address] [place] [address] Huber Prado M.D. [id number] NEUTROPHILS ABSOLUTE COUNT 14.00 K/mcL High 1.70-7.00 [facility] Comment on above: Performed By: #### L [id number] ####[facility] [address] [place] [address] Huber Prado M.D. [id number] Neutrophils/100 WBC (Bld) 73.6 % Normal [facility] Comment on above: Performed By: #### L [id number] ####[facility] [address] [place], [place] [id number] Huber Prado M.D. [id number] Platelet mean volume (Bld) [Entitic vol] 11.1 fL Normal 9.4-12.4 [facility] Comment on above: Performed By: #### Tasha [id number] ####[facility] [address] [place], [place] [address] Huber Prado M.D. [id number] Platelets (Bld) [#/Vol] 312 10*3/uL Normal 150-400 [facility] Comment on above: Performed By: #### Tasha [id number] ####[facility] [address] [place] [address] Huber Prado M.D. [id number] RBC (Bld) [#/Vol] 3.46 10*6/uL Low 4.00-5.20 [facility] Comment on above: Performed By: #### Tasha [id number] ####[facility] [address] [place], [place] [address] Huber Prado M.D. [id number] WBC (Bld) [#/Vol] 18.99 10*3/uL High 4.50-11.00 [facility] Comment on above: Performed By: #### Tasha [id number] ####[facility] [address] [place], [place] [address] Huber Prado M.D. [id number] AUTO NRBC 0.0 % Normal [facility] Comment on above: Performed By: #### Tasha [id number] ####[facility] [address] [place], [place] [address] Huber Prado M.D. [id number] AUTO NRBC ABS COUNT 0.00 K/mcL Normal 0.00-0.00 [facility] Comment on above: Performed By: #### Tasha [id number] ####[facility] [address] [place] [address] Huber Prado M.D. [id number] BASOPHILS ABSOLUTE COUNT 0.09 K/mcL Normal 0.00-0.30 [facility] Comment on above: Performed By: #### L [id number] ####[facility] [address] [place] [address] Huber Prado M.D. [id number] Basophils/100 WBC (Bld) 0.6 % Normal [facility] Comment on above: Performed By: #### L [id number] ####[facility] [address] [place] [address] Huber Prado M.D. [id number] Eosinophils (Bld) [#/Vol] 0.03 10*3/uL Normal 0.00-0.50 [facility] Comment on above: Performed By: #### L [id number] ####[facility] [address] [place] [address] Huber Prado M.D. [id number] Eosinophils/100 WBC (Bld) 0.2 % Normal [facility] Comment on above: Performed By: #### L [id number] ####[facility] [address] [place] [address] Huber Prado M.D. [id number] Erythrocyte distribution width (RBC) [Ratio] 14.9 % High 11.6-14.8 [facility] Comment on above: Performed By: #### L [id number] ####[facility] [address] [place] [address] Huber Prado M.D. [id number] Hematocrit (Bld) [Volume fraction] 29.8 % Low 36.0-46.0 [facility] Comment on above: Performed By: #### L [id number] ####[facility] [address] [place] [address] Huber Prado M.D. [id number] Hemoglobin (Bld) [Mass/Vol] 9.6 g/dL Low 12.0-16.0 [facility] Comment on above: Performed By: #### L [id number] ####[facility] [address] [place] [address] Huber Prado M.D. [id number] IG ABSOLUTE 0.46 K/mcL High 0.00-0.30 [facility] Comment on above: Performed By: #### L [id number] ####[facility] [address] [place] [address] Huber Prado M.D. [id number] IG PERCENT 3.10 % Normal [facility] Comment on above: Result Comment: The IG parameter is the percentage of metamyelocytes, myelocytes and promyelocytes. An immature granulocyte count (IG) of 1% or more suggests the possibility of infection, an IG count of 3% is very likely related to an infection. Performed By: #### L [id number] ####[facility] [address] [place] [address] Huber Prado M.D. [id number] Lymphocytes (Bld) [#/Vol] 1.13 10*3/uL Normal 0.90-4.00 [facility] Comment on above: Performed By: #### L [id number] ####[facility] [address] [place] [address] Huber Prado M.D. [id number] Lymphocytes/100 WBC (Bld) 7.7 % Normal [facility] Comment on above: Performed By: #### L [id number] ####[facility] [address] [place], [place] [address] Huber Prado M.D. [id number] MCH (RBC) [Entitic mass] 29.6 pg Normal 26.0-34.0 [facility] Comment on above: Performed By: #### L [id number] ####[facility] [address] [place], [place] [address] Huber Prado M.D. [id number] MCV (RBC) [Entitic vol] 92.0 fL Normal 80.0-100.0 [facility] Comment on above: Performed By: #### Tasha [id number] ####[facility] [address] [place] [address] Huber Prado M.D. [id number] MEAN CORPUSCULAR HEMOGLOBIN CONC 32.2 g/dL Normal 31.0-37.0 [facility] Comment on above: Performed By: #### Tasha [id number] ####[facility] [address] [place] [address] Huber Prado M.D. [id number] Monocytes (Bld) [#/Vol] 0.90 10*3/uL Normal 0.30-0.90 [facility] Comment on above: Performed By: #### Tasha [id number] ####[facility] [address] [place] [address] Huber Prado M.D. [id number] Monocytes/100 WBC (Bld) 6.1 % Normal [facility] Comment on above: Performed By: #### L [id number] ####[facility] [address] [place], [place] [address] Huber Prado M.D. [id number] NEUTROPHILS ABSOLUTE COUNT 12.12 K/mcL High 1.70-7.00 [facility] Comment on above: Performed By: #### L [id number] ####[facility] [address] [place] [address] Huber Prado M.D. [id number] Neutrophils/100 WBC (Bld) 82.3 % Normal [facility] Comment on above: Performed By: #### L [id number] ####[facility] [address] [place] [address] 14[address] Huber Prado M.D. [id number] Platelet mean volume (Bld) [Entitic vol] 11.5 fL Normal 9.4-12.4 [facility] Comment on above: Performed By: #### L [id number] ####[facility] [address] [place], [place] [address] Huber Prado M.D. [id number] Platelets (Bld) [#/Vol] 299 10*3/uL Normal 150-400 [facility] Comment on above: Performed By: #### L [id number] ####[facility] [address] [place], [place] [address] Huber Prado M.D. [id number] RBC (Bld) [#/Vol] 3.24 10*6/uL Low 4.00-5.20 [facility] Comment on above: Performed By: #### L [id number] ####[facility] [address] [place] [address] 13519 Huber Prado M.D. [id number] WBC (Bld) [#/Vol] 14.73 10*3/uL High 4.50-11.00 [facility] Comment on above: Performed By: #### L [id number] ####[facility] [address] [place] [address] 66583 Huber Prado M.D. [id number] CV IR DIALYSIS CATHETER INSE RTION NONTUNNELEDon 05-01-2024 CV IR DIALYSIS CATHETER INSERTION NONTUNNELED Normal [facility] HEPATIC FUNCTION PANELon Albumin [Mass/Vol] 2.9 g/dL Low 3.2-5.2 [facility] Comment on above: Performed By: #### 4 [id number] ####[facility] [address] [place], [place] [address] Huber Prado M.D. [id number] Order Comment: [facility] has implemented the eGFR calculation approach that does not have a coefficient for race that conforms to the NKF-ASN Task Force Recommendations. Performed By: #### 4 [id number] ####[facility] [address] [place] [address] Huber Prado M.D. [id number] ALP [Catalytic activity/Vol] 218 U/L High 40-140 [facility] Comment on above: Performed By: #### 4 [id number] ####[facility] [address] [place] [address] Huber Prado M.D. [id number] ALT [Catalytic activity/Vol] 62 U/L High 0-35 U/L [facility] Comment on above: Performed By: #### 4 [id number] ####[facility] [address] [place] [address] Huber Prado M.D. [id number] AST [Catalytic activity/Vol] 43 U/L High 0-35 U/L [facility] Comment on above: Performed By: #### 4 [id number] ####[facility] [address] [place] [address] Huber Prado M.D. [id number] Bilirubin [Mass/Vol] 0.2 mg/dL Normal 0.0-1.3 [facility] Comment on above: Performed By: #### 4 [id number] ####[facility] [address] [place] [address] Huber Prado M.D. [id number] BILIRUBIN, DIRECT < Normal 0.0-0.4 [facility] Comment on above: Performed By: #### 4 [id number] ####[facility] [address] [place] [address] Huber Prado M.D. [id number] Protein [Mass/Vol] 6.2 g/dL Normal 6.0-8.0 [facility] Comment on above: Performed By: #### 4 [id number] ####[facility] [address] [place], [place] [address] Huber Prado M.D. [id number] HEPATITIS B SURFACE ANTIGENo n 05-01-2024 HEPATITIS B SURFACE ANTIGEN Negative Normal Negative [facility] Comment on above: Order Comment: Test performed using [employer] immunoassay system Performed By: #### 4 [id number] ####[facility] [address] [place], [place] [address] Huber Prado M.D. [id number] MAGNESIUM LEVELon 05-01-2024 Magnesium [Mass/Vol] 3.2 mg/dL High 1.6-2.4 [facility] Comment on above: Performed By: #### 4 6109 ####[facility] [address] [place], [place] [address] Huber Prado M.D. [id number] MORPHOLOGYon 05-01-2024 PLATELET ESTIMATE Normal Normal Normal [facility] Comment on above: Performed By: #### L [id number] ####[facility] [address] [place], [place] [address] Huber Prado M.D. [id number] RBC MORPH SCAN Normal Normal [facility] Comment on above: Result Comment: RBC Indices confirmed with manual peripheral smear review. Performed By: #### L [id number] ####[facility] [address] [place], [place] [address] Huber Prado M.D. [id number] POC GLUCOSE - [facility] 024 Glucose [Mass/Vol] 149 mg/dL High 65-[address] [place] [address] Comment on above: Performed By: #### 4 6932 ####[facility] [address] [place] [address] [id number] [facility] Glucose [Mass/Vol] 128 mg/dL High 65-99 [facility] Comment on above: Performed By: #### 4 6932 ####[facility] [address] [place] [address] [id number] [facility] Glucose [Mass/Vol] 134 mg/dL [address] Comment on above: Performed By: #### 4 6932 ####[facility] [address] [place] [address] [id number] [facility] Glucose [Mass/Vol] 185 mg/dL [address] Comment on above: Performed By: #### 4 6932 ####[facility] [address] [place] [address] [id number] [facility] Glucose [Mass/Vol] 166 mg/dL [address] Comment on above: Performed By: #### 4 6932 ####[facility] [address] [place] [address] [id number] [facility] Glucose [Mass/Vol] 211 mg/dL [address] Comment on above: Performed By: #### 4 6932 ####[facility] [address] [place] [address] [id number] [facility] POTASSIUM LEVELon 05-01-2024 Potassium [Moles/Vol] 3.3 mmol/L Low 3.5-5.1 [facility] Comment on above: Performed By: #### 4 6351 ####[facility] [address] [place] [address] Huber Prado M.D. [id number] PT/INRon 05-01-2024 INR Coag (PPP) [Relative time] 1.0 {INR} Normal 0.8-1.1 [facility] Comment on above: Order Comment: Thang damon the induction phase of oral anticoagulation, the INR may not reflect the anticoagulation status of the patient. Therapeutic ranges for INR's are:Most clinical situations: INR 2.0-3.0Mechanical Prosthetic Valve: INR 2.5-3.5Critical: INR >5.0 Performed By: #### 4 6391 ####[facility] [address] [place] [address] 04167 Huber Prado M.D. [id number] PT Coag (PPP) [Time] 12.8 s Normal 11.8-14.3 [facility] Comment on above: Order Comment: Thang g the induction phase of oral anticoagulation, the INR may not reflect the anticoagulation status of the patient. Therapeutic ranges for INR's are:Most clinical situations: INR 2.0-3.0Mechanical Prosthetic Valve: INR 2.5-3.5Critical: INR >5.0 Performed By: #### 4 6391 ####[facility] [address] [place] [address] 24025 Huber Prado M.D. [id number] RENAL FUNCTION PANELon 05-01 Anion gap [Moles/Vol] 27 mmol/L High 10-20 [facility] Comment on above: Order Comment: [facility] has implemented the eGFR calculation approach that does not have a coefficient for race that conforms to the NKF-ASN Task Force Recommendations. Performed By: #### 4 6449 ####[facility] [address] [place] [address] 66437 Huber Prado M.D. [id number] Calcium [Mass/Vol] 8.7 mg/dL Normal 8.4-10.2 [facility] Comment on above: Order Comment: [facility] has implemented the eGFR calculation approach that does not have a coefficient for race that conforms to the NKF-ASN Task Force Recommendations. Performed By: #### 4 6449 ####[facility] [address] [place] [address] 68919 Huber Prado M.D. [id number] Chloride [Moles/Vol] 99 mmol/L Normal 98-108 [facility] Comment on above: Order Comment: [facility] has implemented the eGFR calculation approach that does not have a coefficient for race that conforms to the NKF-ASN Task Force Recommendations. Performed By: #### 4 6449 ####[facility] [address] [place], [place] [address] Huber Prado M.D. [id number] Creatinine [Mass/Vol] 3.66 mg/dL High 0.40-1.10 [facility] Comment on above: Order Comment: [facility] has implemented the eGFR calculation approach that does not have a coefficient for race that conforms to the NKF-ASN Task Force Recommendations. Performed By: #### 4 6449 ####[facility] [address] [place], [place] [address] Huber Prado M.D. [id number] Glucose [Mass/Vol] 197 mg/dL High 65-99 [facility] Comment on above: Order Comment: [facility] has implemented the eGFR calculation approach that does not have a coefficient for race that conforms to the NKF-ASN Task Force Recommendations. Performed By: #### 4 6449 ####[facility] [address] [place], [place] [address] Huber Prado M.D. [id number] HCO3 (Bld) [Moles/Vol] 23 mmol/L Normal 21-32 [facility] Comment on above: Order Comment: [facility] has implemented the eGFR calculation approach that does not have a coefficient for race that conforms to the NKF-ASN Task Force Recommendations. Performed By: #### 4 6449 ####[facility] [address] [place], [place] [address] Huber Prado M.D. [id number] Phosphate [Mass/Vol] 4.1 mg/dL Normal 2.7-4.5 [facility] Comment on above: Order Comment: [facility] has implemented the eGFR calculation approach that does not have a coefficient for race that conforms to the NKF-ASN Task Force Recommendations. Performed By: #### 4 6449 ####[facility] [address] [place], [place] [address] Huber Prado M.D. [id number] Potassium [Moles/Vol] 3.6 mmol/L Normal 3.5-5.1 [facility] Comment on above: Order Comment: [facility] has implemented the eGFR calculation approach that does not have a coefficient for race that conforms to the NKF-ASN Task Force Recommendations. Performed By: #### 4 6449 ####[facility] [address] [place] [address] 11470 Huber Prado M.D. [id number] Sodium [Moles/Vol] 145 mmol/L Normal 135-145 [facility] Comment on above: Order Comment: [facility] has implemented the eGFR calculation approach that does not have a coefficient for race that conforms to the NKF-ASN Task Force Recommendations. Performed By: #### 4 6449 ####[facility] [address] [place] [address] 72923 Huber Prado M.D. [id number] Urea nitrogen [Mass/Vol] 111 mg/dL Off scale high 8-25 [facility] Comment on above: Order Comment: [facility] has implemented the eGFR calculation approach that does not have a coefficient for race that conforms to the NKF-ASN Task Force Recommendations. Performed By: #### 4 6449 ####[facility] [address] [place] [address] 15354 Huber Prado M.D. [id number] Urea nitrogen/Creatinine [Mass ratio] 30.3 mg/mg High 10.0-20.0 [facility] Comment on above: Order Comment: [facility] has implemented the eGFR calculation approach that does not have a coefficient for race that conforms to the NKF-ASN Task Force Recommendations. Performed By: #### 4 6449 ####[facility] [address] [place] [address] 19013 Huber Prado M.D. [id number] T4, FREEon 05-01-2024 Free T4 [Mass/Vol] 0.6 ng/dL Low 0.7-1.7 [facility] Comment on above: Performed By: #### 4 [id number] ####[facility] [address] [place], [place] [id number] Huber Prado M.D. [id number] TSHon 05-01-2024 TSH Qn 8.35 m[IU]/L High 0.27-4.20 [facility] Comment on above: Performed By: #### 4 [id number] ####[facility] [address] [place] [address]00 Huber Prado M.D. [id number] BASIC METABOLIC PANELon Anion gap [Moles/Vol] 25 mmol/L High 10-20 [facility] Comment on above: Order Comment: [facility] has implemented the eGFR calculation approach that does not have a coefficient for race that conforms to the NKF-ASN Task Force Recommendations. Performed By: #### 4 [id number] ####[facility] [address] [place] [address] 91355 Huebr Prado M.D. [id number] Calcium [Mass/Vol] 9.3 mg/dL Normal 8.4-10.2 [facility] Comment on above: Order Comment: [facility] has implemented the eGFR calculation approach that does not have a coefficient for race that conforms to the NKF-ASN Task Force Recommendations. Performed By: #### 4 [id number] ####[facility] [address] [place] [address] 79805 Huber Prado M.D. [id number] Chloride [Moles/Vol] 97 mmol/L Low 98-108 [facility] Comment on above: Order Comment: [facility] has implemented the eGFR calculation approach that does not have a coefficient for race that conforms to the NKF-ASN Task Force Recommendations. Performed By: #### 4 [id number] ####[facility] [address] [place], [place] [id number] Huber Prado M.D. [id number] Creatinine [Mass/Vol] 4.12 mg/dL High 0.40-1.10 [facility] Comment on above: Order Comment: [facility] has implemented the eGFR calculation approach that does not have a coefficient for race that conforms to the NKF-ASN Task Force Recommendations. Performed By: #### 4 6124 ####[facility] [address] [place], [place] [address] Huber Prado M.D. [id number] EGFR 14 mL/min/1.73 m2 Low >=60 [facility] Comment on above: Order Comment: [facility] has implemented the eGFR calculation approach that does not have a coefficient for race that conforms to the NKF-ASN Task Force Recommendations. Result Comment: Neema mated GFR was calculated using the 2020 CKD-EPI creatinine equation. Performed By: #### 4 6124 ####[facility] [address] [place], [place] [address] Huber Prado M.D. [id number] Glucose [Mass/Vol] 155 mg/dL High 65-99 [facility] Comment on above: Order Comment: [facility] has implemented the eGFR calculation approach that does not have a coefficient for race that conforms to the NKF-ASN Task Force Recommendations. Performed By: #### 4 6124 ####[facility] [address] [place], [place] [address] Huber Prado M.D. [id number] HCO3 (Bld) [Moles/Vol] 26 mmol/L Normal 21-32 [facility] Comment on above: Order Comment: [facility] has implemented the eGFR calculation approach that does not have a coefficient for race that conforms to the NKF-ASN Task Force Recommendations. Performed By: #### 4 6124 ####[facility] [address] [place], [place] [address] Huber Prado M.D. [id number] Potassium [Moles/Vol] 4.1 mmol/L Normal 3.5-5.1 [facility] Comment on above: Order Comment: [facility] has implemented the eGFR calculation approach that does not have a coefficient for race that conforms to the NKF-ASN Task Force Recommendations. Performed By: #### 4 6124 ####[facility] [address] [place] [address] 13355 Huber Prado M.D. [id number] Sodium [Moles/Vol] 144 mmol/L Normal 135-145 [facility] Comment on above: Order Comment: [facility] has implemented the eGFR calculation approach that does not have a coefficient for race that conforms to the NKF-ASN Task Force Recommendations. Performed By: #### 4 6124 ####[facility] [address] [place], [place] [id number] Huber Prado M.D. [id number] Urea nitrogen [Mass/Vol] 108 mg/dL Off scale high 8-25 [facility] Comment on above: Order Comment: [facility] has implemented the eGFR calculation approach that does not have a coefficient for race that conforms to the NKF-ASN Task Force Recommendations. Performed By: #### 4 6124 ####[facility] [address] [place] [address] 86[address] Huber Prado M.D. [id number] Urea nitrogen/Creatinine [Mass ratio] 26.2 mg/mg High 10.0-20.0 [facility] Comment on above: Order Comment: [facility] has implemented the eGFR calculation approach that does not have a coefficient for race that conforms to the NKF-ASN Task Force Recommendations. Performed By: #### 4 6124 ####[facility] [address] [place] [address] 63704 Huber Prado M.D. [id number] CBC WITH AUTO DIFFERENTIALon 04-30-2024 AUTO NRBC 0.0 % Normal [facility] Comment on above: Performed By: #### L [id number] ####[facility] [address] [place] [address] Huber Prado M.D. [id number] AUTO NRBC ABS COUNT 0.00 K/mcL Normal 0.00-0.00 [facility] Comment on above: Performed By: #### Tasha [id number] ####[facility] [address] [place] [address] Huber Prado M.D. [id number] BASOPHILS ABSOLUTE COUNT 0.10 K/mcL Normal 0.00-0.30 [facility] Comment on above: Performed By: #### Tasha [id number] ####[facility] [address] [place] [address] Huber Prado M.D. [id number] Basophils/100 WBC (Bld) 0.7 % Normal [facility] Comment on above: Performed By: #### Tasha [id number] ####[facility] [address] [place] [address] Huber Prado M.D. [id number] Eosinophils (Bld) [#/Vol] 0.03 10*3/uL Normal 0.00-0.50 [facility] Comment on above: Performed By: #### Tasha [id number] ####[facility] [address] [place] [address] Huebr Prado M.D. [id number] Eosinophils/100 WBC (Bld) 0.2 % Normal [facility] Comment on above: Performed By: #### L [id number] ####[facility] [address] [place] [address] Huber Prado M.D. [id number] Erythrocyte distribution width (RBC) [Ratio] 14.7 % Normal 11.6-14.8 [facility] Comment on above: Performed By: #### L [id number] ####[facility] [address] [place] [address] Huber Prado M.D. [id number] Hematocrit (Bld) [Volume fraction] 30.6 % Low 36.0-46.0 [facility] Comment on above: Performed By: #### L [id number] ####[facility] [address] [place] [address] Huber Prado M.D. [id number] Hemoglobin (Bld) [Mass/Vol] 9.9 g/dL Low 12.0-16.0 [facility] Comment on above: Performed By: #### L [id number] ####[facility] [address] [place] [address] Huber Prado M.D. [id number] IG ABSOLUTE 0.34 K/mcL High 0.00-0.30 [facility] Comment on above: Performed By: #### L [id number] ####[facility] [address] [place] [address] Huber Prado M.D. [id number] IG PERCENT 2.40 % Normal [facility] Comment on above: Result Comment: The IG parameter is the percentage of metamyelocytes, myelocytes and promyelocytes. An immature granulocyte count (IG) of 1% or more suggests the possibility of infection, an IG count of 3% is very likely related to an infection. Performed By: #### L [id number] ####[facility] [address] [place] [address] Huber Prado M.D. [id number] Lymphocytes (Bld) [#/Vol] 1.14 10*3/uL Normal 0.90-4.00 [facility] Comment on above: Performed By: #### L [id number] ####[facility] [address] [place], [place] [address] Huber Prado M.D. [id number] Lymphocytes/100 WBC (Bld) 8.0 % Normal [facility] Comment on above: Performed By: #### Tasha [id number] ####[facility] [address] [place] [address] Huber Prado M.D. [id number] MCH (RBC) [Entitic mass] 30.0 pg Normal 26.0-34.0 [facility] Comment on above: Performed By: #### Tasha [id number] ####[facility] [address] [place] [address] Huber Prado M.D. [id number] MCV (RBC) [Entitic vol] 92.7 fL Normal 80.0-100.0 [facility] Comment on above: Performed By: #### Tasha [id number] ####[facility] [address] [place] [address] Huber Prado M.D. [id number] MEAN CORPUSCULAR HEMOGLOBIN CONC 32.4 g/dL Normal 31.0-37.0 [facility] Comment on above: Performed By: #### Tasha [id number] ####[facility] [address] [place] [address] Huber Prado M.D. [id number] Monocytes (Bld) [#/Vol] 0.80 10*3/uL Normal 0.30-0.90 [facility] Comment on above: Performed By: #### Tasha [id number] ####[facility] [address] [place] [address] Huber Prado M.D. [id number] Monocytes/100 WBC (Bld) 5.6 % Normal [facility] Comment on above: Performed By: #### L [id number] ####[facility] [address] [place] [address] Huber Prado M.D. [id number] NEUTROPHILS ABSOLUTE COUNT 11.90 K/mcL High 1.70-7.00 [facility] Comment on above: Performed By: #### Tasha [id number] ####[facility] [address] [place], [place] [address] Huber Prado M.D. [id number] Neutrophils/100 WBC (Bld) 83.1 % Normal [facility] Comment on above: Performed By: #### Tasha [id number] ####[facility] [address] [place], [place] [address] Huber Prado M.D. [id number] Platelet mean volume (Bld) [Entitic vol] 10.8 fL Normal 9.4-12.4 [facility] Comment on above: Performed By: #### Tasha [id number] ####[facility] [address] [place], [place] [address] Huber Prado M.D. [id number] Platelets (Bld) [#/Vol] 277 10*3/uL Normal 150-400 [facility] Comment on above: Performed By: #### Tasha [id number] ####[facility] [address] [place], [place] [address] Huber Prado M.D. [id number] RBC (Bld) [#/Vol] 3.30 10*6/uL Low 4.00-5.20 [facility] Comment on above: Performed By: #### Tasha [id number] ####[facility] [address] [place], [place] [address] Huber Prado M.D. [id number] WBC (Bld) [#/Vol] 14.31 10*3/uL High 4.50-11.00 [facility] Comment on above: Performed By: #### L [id number] ####[facility] [address] [place] [address] 61246 Huber Prado M.D. [id number] CONSULTon 04-30-2024 CONSULT Normal [facility] POC GLUCOSE - [facility] 024 Glucose [Mass/Vol] 168 mg/dL High 65 [facility] Comment on above: Performed By: #### 4 [id number] ####[facility] [address] [place] [address] [id number] [facility] Glucose [Mass/Vol] 180 mg/dL High 65 [facility] Comment on above: Performed By: #### 4 [id number] ####[facility] [address] [place] [address] [id number] [facility] Glucose [Mass/Vol] 174 mg/dL High [facility] Comment on above: Performed By: #### 4 [id number] ####[facility] [address] [place] [address] [id number] [facility] Glucose [Mass/Vol] 135 mg/dL High [facility] Comment on above: Performed By: #### 4 [id number] ####[facility] [address] [place] [address] [id number] [facility] Glucose [Mass/Vol] 182 mg/dL High [facility] Comment on above: Performed By: #### 4 [id number] ####[facility] [address] [place] [address] [id number] [facility] Glucose [Mass/Vol] 173 mg/dL High [facility] Comment on above: Performed By: #### 4 [id number] ####[facility] [address] [place] [address] [id number] [facility] TRIGLYCERIDESon 04-30-2024 Triglyceride [Mass/Vol] 426 mg/dL High 30-150 [facility] Comment on above: Result Comment: [employer] Cholesterol Education Program Guidelines: TriglycerideNormal: <150 mg/dLBorderline High: 150-199 mg/dLHigh: 200-499 mg/dLVery High: greater than or equal to 500 mg/dL Performed By: #### 4 [id number] ####[facility] [address] [place] [address] 04615 Huber Prado M.D. [id number] BASIC METABOLIC PANELon 08-3 Anion gap [Moles/Vol] 24 mmol/L High 10-20 [facility] Comment on above: Order Comment: [facility] has implemented the eGFR calculation approach that does not have a coefficient for race that conforms to the NKF-ASN Task Force Recommendations. Performed By: #### 4 6124 ####[facility] [address] [place] [address] 37515 Huber Prado M.D. [id number] Calcium [Mass/Vol] 9.3 mg/dL Normal 8.4-10.2 [facility] Comment on above: Order Comment: [facility] has implemented the eGFR calculation approach that does not have a coefficient for race that conforms to the NKF-ASN Task Force Recommendations. Performed By: #### 4 [id number] ####[facility] [address] [place], [place] [address] Huber Prado M.D. [id number] Chloride [Moles/Vol] 97 mmol/L Low 98-108 [facility] Comment on above: Order Comment: [facility] has implemented the eGFR calculation approach that does not have a coefficient for race that conforms to the NKF-ASN Task Force Recommendations. Performed By: #### 4 6124 ####[facility] [address] [place] [address] 44031 Huber Prado M.D. [id number] Creatinine [Mass/Vol] 4.22 mg/dL High 0.40-1.10 [facility] Comment on above: Order Comment: [facility] has implemented the eGFR calculation approach that does not have a coefficient for race that conforms to the NKF-ASN Task Force Recommendations. Performed By: #### 4 6124 ####[facility] [address] [place], [place] [address] Huber Prado M.D. [id number] EGFR 13 mL/min/1.73 m2 Low >=60 [facility] Comment on above: Order Comment: [facility] has implemented the eGFR calculation approach that does not have a coefficient for race that conforms to the NKF-ASN Task Force Recommendations. Result Comment: Neema mated GFR was calculated using the 2020 CKD-EPI creatinine equation. Performed By: #### 4 [id number] ####[facility] [address] [place] [address] 70158 Huber Prado M.D. [id number] Glucose [Mass/Vol] 170 mg/dL High 65-99 [facility] Comment on above: Order Comment: [facility] has implemented the eGFR calculation approach that does not have a coefficient for race that conforms to the NKF-ASN Task Force Recommendations. Performed By: #### 4 6124 ####[facility] [address] [place] [address] 37152 Huber Prado M.D. [id number] HCO3 (Bld) [Moles/Vol] 26 mmol/L Normal 21-32 [facility] Comment on above: Order Comment: [facility] has implemented the eGFR calculation approach that does not have a coefficient for race that conforms to the NKF-ASN Task Force Recommendations. Performed By: #### 4 6124 ####[facility] [address] [place] [address] 57481 Huber Prado M.D. [id number] Potassium [Moles/Vol] 3.8 mmol/L Normal 3.5-5.1 [facility] Comment on above: Order Comment: [facility] has implemented the eGFR calculation approach that does not have a coefficient for race that conforms to the NKF-ASN Task Force Recommendations. Performed By: #### 4 6124 ####[facility] [address] [place] [address] 71543 Huber Prado M.D. [id number] Sodium [Moles/Vol] 143 mmol/L Normal 135-145 [facility] Comment on above: Order Comment: [facility] has implemented the eGFR calculation approach that does not have a coefficient for race that conforms to the NKF-ASN Task Force Recommendations. Performed By: #### 4 6124 ####[facility] [address] [place], [place] [address] Huber Prado M.D. [id number] Urea nitrogen [Mass/Vol] 95 mg/dL High 8-25 [facility] Comment on above: Order Comment: [facility] has implemented the eGFR calculation approach that does not have a coefficient for race that conforms to the NKF-ASN Task Force Recommendations. Performed By: #### 4 6124 ####[facility] [address] [place], [place] [address] Huber Prado M.D. [id number] Urea nitrogen/Creatinine [Mass ratio] 22.5 mg/mg High 10.0-20.0 [facility] Comment on above: Order Comment: [facility] has implemented the eGFR calculation approach that does not have a coefficient for race that conforms to the NKF-ASN Task Force Recommendations. Performed By: #### 4 6124 ####[facility] [address] [place], [place] [address] Huber Prado M.D. [id number] CBC WITH AUTO DIFFERENTIALon 04-29-2024 AUTO NRBC 0.0 % Normal [facility] Comment on above: Performed By: #### L [id number] ####[facility] [address] [place] [address] 21532 Huber Prado M.D. [id number] AUTO NRBC ABS COUNT 0.00 K/mcL Normal 0.00-0.00 [facility] Comment on above: Performed By: #### L [id number] ####[facility] [address] [place] [address] 42551 Huber Prado M.D. [id number] BASOPHILS ABSOLUTE COUNT 0.09 K/mcL Normal 0.00-0.30 [facility] Comment on above: Performed By: #### L [id number] ####[facility] [address] [place] [address] 24620 Huber Prado M.D. [id number] Basophils/100 WBC (Bld) 0.7 % Normal [facility] Comment on above: Performed By: #### L [id number] ####[facility] [address] [place] [address] Huber Prado M.D. [id number] Eosinophils (Bld) [#/Vol] 0.63 10*3/uL High 0.00-0.50 [facility] Comment on above: Performed By: #### L [id number] ####[facility] [address] [place] [address] Huber Prado M.D. [id number] Eosinophils/100 WBC (Bld) 5.2 % Normal [facility] Comment on above: Performed By: #### Tasha [id number] ####[facility] [address] [place], [place] [id number] Huber Prado M.D. [id number] Erythrocyte distribution width (RBC) [Ratio] 14.7 % Normal 11.6-14.8 [facility] Comment on above: Performed By: #### L [id number] ####[facility] [address] [place], [place] [id number] Huber Prado M.D. [id number] Hematocrit (Bld) [Volume fraction] 30.1 % Low 36.0-46.0 [facility] Comment on above: Performed By: #### L [id number] ####[facility] [address] [place] [address] 86173 Huber Prado M.D. [id number] Hemoglobin (Bld) [Mass/Vol] 9.6 g/dL Low 12.0-16.0 [facility] Comment on above: Performed By: #### Tasha [id number] ####[facility] [address] [place] [address] Huber Prado M.D. [id number] IG ABSOLUTE 0.25 K/mcL Normal 0.00-0.30 [facility] Comment on above: Performed By: #### L [id number] ####[facility] [address] [place] [address] Huber Prado M.D. [id number] IG PERCENT 2.10 % Normal [facility] Comment on above: Result Comment: The IG parameter is the percentage of metamyelocytes, myelocytes and promyelocytes. An immature granulocyte count (IG) of 1% or more suggests the possibility of infection, an IG count of 3% is very likely related to an infection. Performed By: #### Tasha [id number] ####[facility] [address] [place] [address] Huber Prado M.D. [id number] Lymphocytes (Bld) [#/Vol] 1.24 10*3/uL Normal 0.90-4.00 [facility] Comment on above: Performed By: #### L [id number] ####[facility] [address] [place] [address] Huber Prado M.D. [id number] Lymphocytes/100 WBC (Bld) 10.3 % Normal [facility] Comment on above: Performed By: #### L [id number] ####[facility] [address] [place], [place] [id number] Huber Prado M.D. [id number] MCH (RBC) [Entitic mass] 30.2 pg Normal 26.0-34.0 [facility] Comment on above: Performed By: #### Tasha [id number] ####[facility] [address] [place], [place] [address]Nora Prado M.D. [id number] MCV (RBC) [Entitic vol] 94.7 fL Normal 80.0-100.0 [facility] Comment on above: Performed By: #### Tasha [id number] ####[facility] [address] [place] [address] Huber Prado M.D. [id number] MEAN CORPUSCULAR HEMOGLOBIN CONC 31.9 g/dL Normal 31.0-37.0 [facility] Comment on above: Performed By: #### Tasha [id number] ####[facility] [address] [place] [address] Huber Prado M.D. [id number] Monocytes (Bld) [#/Vol] 1.40 10*3/uL High 0.30-0.90 [facility] Comment on above: Performed By: #### Tasha [id number] ####[facility] [address] [place] [address] Huber Prado M.D. [id number] Monocytes/100 WBC (Bld) 11.6 % Normal [facility] Comment on above: Performed By: #### Tasha [id number] ####[facility] [address] [place], [place] [id number] Huber Prado M.D. [id number] NEUTROPHILS ABSOLUTE COUNT 8.44 K/mcL High 1.70-7.00 [facility] Comment on above: Performed By: #### L [id number] ####[facility] [address] [place], [place] [id number] Huber Prado M.D. [id number] Neutrophils/100 WBC (Bld) 70.1 % Normal [facility] Comment on above: Performed By: #### L [id number] ####[facility] [address] [place] [address] Huber Prado M.D. [id number] Platelet mean volume (Bld) [Entitic vol] 11.0 fL Normal 9.4-12.4 [facility] Comment on above: Performed By: #### L [id number] ####[facility] [address] [place] [address] 24242 Huber Prado M.D. [id number] Platelets (Bld) [#/Vol] 249 10*3/uL Normal 150-400 [facility] Comment on above: Performed By: #### L [id number] ####[facility] [address] [place] [address] Huber Prado M.D. [id number] RBC (Bld) [#/Vol] 3.18 10*6/uL Low 4.00-5.20 [facility] Comment on above: Performed By: #### L [id number] ####[facility] [address] [place], [place] [id number] Huber Prado M.D. [id number] WBC (Bld) [#/Vol] 12.05 10*3/uL High 4.50-11.00 [facility] Comment on above: Performed By: #### L [id number] ####[facility] [address] [place], [place] [id number] Huber Prado M.D. [id number] POC GLUCOSE [facility] 024 Glucose [Mass/Vol] 189 mg/dL [facility] [address] Comment on above: Performed By: #### 4 6963 ####[facility] [address] [place] [address] [id number] [facility] Glucose [Mass/Vol] 167 mg/dL [address] Comment on above: Performed By: #### 4 6950 ####[facility] [address] [place] [address] [id number] [facility] Glucose [Mass/Vol] 174 mg/dL [address] Comment on above: Performed By: #### 4 6932 ####[facility] [address] [place] [address] [id number] [facility] Glucose [Mass/Vol] 141 mg/dL [address] Comment on above: Performed By: #### 4 6932 ####[facility] [address] [place] [address] [id number] [facility] Glucose [Mass/Vol] 152 mg/dL [address] Comment on above: Performed By: #### 4 6932 ####[facility] [address] [place] [address] [id number] [facility] Glucose [Mass/Vol] 178 mg/dL [address] Comment on above: Performed By: #### 4 6932 ####[facility] [address] [place] [address] [id number] [facility] Glucose [Mass/Vol] 145 mg/dL [address] Comment on above: Performed By: #### 4 6932 ####[facility] [address] [place] [address] [id number] [facility] POTASSIUM LEVELon 04-29-2024 Potassium [Moles/Vol] 5.0 mmol/L Normal 3.5-5.1 [facility] Comment on above: Performed By: #### 4 6351 ####[facility] [address] [place] [address] Huber Prado M.D. [id number] BASIC METABOLIC PANELon 04-01 Anion gap [Moles/Vol] 24 mmol/L High 10-20 [facility] Comment on above: Order Comment: [facility] has implemented the eGFR calculation approach that does not have a coefficient for race that conforms to the NKF-ASN Task Force Recommendations. Performed By: #### 4 6124 ####[facility] [address] [place] [address] Huber Prado M.D. [id number] Calcium [Mass/Vol] 9.2 mg/dL Normal 8.4-10.2 [facility] Comment on above: Order Comment: [facility] has implemented the eGFR calculation approach that does not have a coefficient for race that conforms to the NKF-ASN Task Force Recommendations. Performed By: #### 4 6124 ####[facility] [address] [place] [address] 67166 Huber Prado M.D. [id number] Chloride [Moles/Vol] 97 mmol/L Low 98-108 [facility] Comment on above: Order Comment: [facility] has implemented the eGFR calculation approach that does not have a coefficient for race that conforms to the NKF-ASN Task Force Recommendations. Performed By: #### 4 6124 ####[facility] [address] [place], [place] [id number] Huber Prado M.D. [id number] Creatinine [Mass/Vol] 3.78 mg/dL High 0.40-1.10 [facility] Comment on above: Order Comment: [facility] has implemented the eGFR calculation approach that does not have a coefficient for race that conforms to the NKF-ASN Task Force Recommendations. Performed By: #### 4 6124 ####[facility] [address] [place] [address] 14924 Huber Prado M.D. [id number] EGFR 15 mL/min/1.73 m2 Low >=60 [facility] Comment on above: Order Comment: [facility] has implemented the eGFR calculation approach that does not have a coefficient for race that conforms to the NKF-ASN Task Force Recommendations. Result Comment: Neema mated GFR was calculated using the 2020 CKD-EPI creatinine equation. Performed By: #### 4 6124 ####[facility] [address] [place] [address] 55710 Huber Prado M.D. [id number] Glucose [Mass/Vol] 179 mg/dL High 65-99 [facility] Comment on above: Order Comment: [facility] has implemented the eGFR calculation approach that does not have a coefficient for race that conforms to the NKF-ASN Task Force Recommendations. Performed By: #### 4 6158 ####[facility] [address] [place], [place] [address] Huber Prado M.D. [id number] HCO3 (Bld) [Moles/Vol] 26 mmol/L Normal 21-32 [facility] Comment on above: Order Comment: [facility] has implemented the eGFR calculation approach that does not have a coefficient for race that conforms to the NKF-ASN Task Force Recommendations. Performed By: #### 4 6124 ####[facility] [address] [place], [place] [address] Huber Prado M.D. [id number] Potassium [Moles/Vol] 5.1 mmol/L Normal 3.5-5.1 [facility] Comment on above: Order Comment: [facility] has implemented the eGFR calculation approach that does not have a coefficient for race that conforms to the NKF-ASN Task Force Recommendations. Result Comment: Slig htly Hemolyzed Performed By: #### 4 6101 ####[facility] [address] [place], [place] [address] Huber Prado M.D. [id number] Sodium [Moles/Vol] 142 mmol/L Normal 135-145 [facility] Comment on above: Order Comment: [facility] has implemented the eGFR calculation approach that does not have a coefficient for race that conforms to the NKF-ASN Task Force Recommendations. Performed By: #### 4 6183 ####[facility] [address] [place], [place] [address] Huber Prado M.D. [id number] Urea nitrogen [Mass/Vol] 81 mg/dL High 8-25 [facility] Comment on above: Order Comment: [facility] has implemented the eGFR calculation approach that does not have a coefficient for race that conforms to the NKF-ASN Task Force Recommendations. Performed By: #### 4 6124 ####[facility] [address] [place] [address] 99368 Huber Prado M.D. [id number] Urea nitrogen/Creatinine [Mass ratio] 21.4 mg/mg High 10.0-20.0 [facility] Comment on above: Order Comment: [facility] has implemented the eGFR calculation approach that does not have a coefficient for race that conforms to the NKF-ASN Task Force Recommendations. Performed By: #### 4 6124 ####[facility] [address] [place], [place] [address] Huber Prado M.D. [id number] CBC WITH AUTO DIFFERENTIALon 04-28-2024 AUTO NRBC 0.0 % [facility] Comment on above: Performed By: #### L [id number] ####[facility] [address] [place], [place] [address] Huebr Prado M.D. [id number] AUTO NRBC ABS COUNT 0.00 K/mcL Normal 0.00-0.00 [facility] Comment on above: Performed By: #### L [id number] ####[facility] [address] [place] [address] 55090 Huber Prado M.D. [id number] BASOPHILS ABSOLUTE COUNT 0.10 K/mcL Normal 0.00-0.30 [facility] Comment on above: Performed By: #### L [id number] ####[facility] [address] [place], [place] [address] Huber Prado M.D. [id number] Basophils/100 WBC (Bld) 0.9 % Normal [facility] Comment on above: Performed By: #### L [id number] ####[facility] [address] [place], [place] [id number] Huber Prado M.D. [id number] Eosinophils (Bld) [#/Vol] 0.53 10*3/uL High 0.00-0.50 [facility] Comment on above: Performed By: #### L [id number] ####[facility] [address] [place] [address] Huber Prado M.D. [id number] Eosinophils/100 WBC (Bld) 4.6 % Normal [facility] Comment on above: Performed By: #### Tasha [id number] ####[facility] [address] [place] [address] Huber Prado M.D. [id number] Erythrocyte distribution width (RBC) [Ratio] 14.6 % Normal 11.6-14.8 [facility] Comment on above: Performed By: #### Tasha [id number] ####[facility] [address] [place] [address] Huber Prado M.D. [id number] Hematocrit (Bld) [Volume fraction] 32.9 % Low 36.0-46.0 [facility] Comment on above: Performed By: #### Tasha [id number] ####[facility] [address] [place], [place] [address]Nora Prado M.D. [id number] Hemoglobin (Bld) [Mass/Vol] 10.3 g/dL Low 12.0-16.0 [facility] Comment on above: Performed By: #### L [id number] ####[facility] [address] [place] [address] Huber Prado M.D. [id number] IG ABSOLUTE 0.19 K/mcL Normal 0.00-0.30 [facility] Comment on above: Performed By: #### Tasha [id number] ####[facility] [address] [place] [address] Huber Prado M.D. [id number] IG PERCENT 1.70 % Normal [facility] Comment on above: Result Comment: The IG parameter is the percentage of metamyelocytes, myelocytes and promyelocytes. An immature granulocyte count (IG) of 1% or more suggests the possibility of infection, an IG count of 3% is very likely related to an infection. Performed By: #### Tasha [id number] ####[facility] [address] [place] [address] Huber Prado M.D. [id number] Lymphocytes (Bld) [#/Vol] 1.08 10*3/uL Normal 0.90-4.00 [facility] Comment on above: Performed By: #### Tasha [id number] ####[facility] [address] [place] [address] Huber Prado M.D. [id number] Lymphocytes/100 WBC (Bld) 9.4 % Normal [facility] Comment on above: Performed By: #### Tasha [id number] ####[facility] [address] [place] [address] Huber Prado M.D. [id number] MCH (RBC) [Entitic mass] 29.4 pg Normal 26.0-34.0 [facility] Comment on above: Performed By: #### Tasha [id number] ####[facility] [address] [place] [address] Huber Prado M.D. [id number] MCV (RBC) [Entitic vol] 94.0 fL Normal 80.0-100.0 [facility] Comment on above: Performed By: #### L [id number] ####[facility] [address] [place] [address] Huber Prado M.D. [id number] MEAN CORPUSCULAR HEMOGLOBIN CONC 31.3 g/dL Normal 31.0-37.0 [facility] Comment on above: Performed By: #### L [id number] ####[facility] [address] [place] [address] Huber Prado M.D. [id number] Monocytes (Bld) [#/Vol] 1.37 10*3/uL High 0.30-0.90 [facility] Comment on above: Performed By: #### L [id number] ####[facility] [address] [place] [address] Huber Prado M.D. [id number] Monocytes/100 WBC (Bld) 12.0 % Normal [facility] Comment on above: Performed By: #### L [id number] ####[facility] [address] [place] [address] Huber Prado M.D. [id number] NEUTROPHILS ABSOLUTE COUNT 8.18 K/mcL High 1.70-7.00 [facility] Comment on above: Performed By: #### L [id number] ####[facility] [address] [place] [address] Huber Prado M.D. [id number] Neutrophils/100 WBC (Bld) 71.4 % Normal [facility] Comment on above: Performed By: #### L [id number] ####[facility] [address] [place], [place] [address]Nora Prado M.D. [id number] Platelet mean volume (Bld) [Entitic vol] 10.6 fL Normal 9.4-12.4 [facility] Comment on above: Performed By: #### L [id number] ####[facility] [address] [place], [place] [id number] Huber Prado M.D. [id number] Platelets (Bld) [#/Vol] 245 10*3/uL Normal 150-400 [facility] Comment on above: Performed By: #### L [id number] ####[facility] [address] [place], [place] [id number] Huber Prado M.D. [id number] RBC (Bld) [#/Vol] 3.50 10*6/uL Low 4.00-5.20 [facility] Comment on above: Performed By: #### L [id number] ####[facility] [address] [place] [address] Huber Prado M.D. [id number] WBC (Bld) [#/Vol] 11.45 10*3/uL High 4.50-11.00 [facility] Comment on above: Performed By: #### L [id number] ####[facility] [address] [place] [address] Huber Prado M.D. [id number] POC ARTERIAL BLOOD GAS PANEL [facility] 04-28-2024 BASE EXCESS, ARTERIAL 4.9 High -2.0-2.0 [facility] Comment on above: Performed By: #### 4 8716 ####[facility] [address] [place] [address] [id number] [facility] CALCIUM IONIZED 4.8 mg/dL Normal 4.5-5.3 [facility] Comment on above: Performed By: #### 4 8716 ####[facility] [address] [place] [address] [id number] [facility] CARBOXYHEMOGLOBIN 1.0 % of total Hb Normal <=1.5 [facility] Comment on above: Result Comment: Refe rence Ranges:Suburban Non-smokers: <1.5%Smokers: 1.5-5.0%Heavy Smokers: 5.0-9.0% Performed By: #### 4 4971 ####[facility] [address] [place] [address] [id number] [facility] Chloride [Moles/Vol] 96 mmol/L Low 98-108 [facility] Comment on above: Performed By: #### 4 3453 ####[facility] [address] [place] [address] 167[address] [id number] [facility] FIO2 40 Normal [facility] Comment on above: Performed By: #### 4 8716 ####[facility] [address] [place] [address] [id number] [facility] Glucose [Mass/Vol] 176 mg/dL High 65-99 [facility] Comment on above: Performed By: #### 4 8716 ####[facility] [address] [place] [address] [id number] [facility] HCO3 (Bld) [Moles/Vol] 30.9 mmol/L High 22.0-26.0 [facility] Comment on above: Performed By: #### 4 8716 ####[facility] [address] [place] [address] [id number] [facility] Hematocrit (Bld) [Volume fraction] 32.5 % Low 36.0-46.0 [facility] Comment on above: Performed By: #### 4 1216 ####[facility] [address] [place] [address] [id number] [facility] Hemoglobin (Bld) [Mass/Vol] 10.6 g/dL Low 12.0-16.0 [facility] Comment on above: Performed By: #### 4 8716 ####[facility] [address] [place] [address] [id number] [facility] LACTIC ACID, WHOLE BLOOD 1.3 mmol/L Normal 0.6-2.0 [facility] Comment on above: Performed By: #### 4 8116 ####[facility] [address] [place] [address] [id number] [facility] METHEMOGLOBIN < Normal 0.0-2.0 [facility] Comment on above: Performed By: #### 4 8415 ####[facility] [address] [place] [address] [id number] [facility] O2HB 97.8 % Normal 94.0-98.0 [facility] Comment on above: Performed By: #### 4 8716 ####[facility] [address] [place] [address] [id number] [facility] Oxygen saturation in Blood 99.4 % High 92.0-99.0 [facility] Comment on above: Performed By: #### 4 8716 ####[facility] [address] [place] [address] [id number] [facility] PCO2 ARTERIAL 52.0 mm Hg High 35.0-45.0 [facility] Comment on above: Performed By: #### 4 8716 ####[facility] [address] [place] [address] [id number] [facility] PEEP RAD 8 Normal [facility] Comment on above: Performed By: #### 4 8716 ####[facility] [address] [place] [address] [id number] [facility] PH ARTERIAL 7.38 Normal 7.35-7.45 [facility] Comment on above: Performed By: #### 4 8716 ####[facility] [address] [place] [address] [id number] [facility] PO2 ARTERIAL 128 mm Hg High 80-100 [facility] Comment on above: Performed By: #### 4 8716 ####[facility] [address] [place] [address] [id number] [facility] Potassium [Moles/Vol] 4.4 mmol/L Normal 3.5-5.1 [facility] Comment on above: Performed By: #### 4 7416 ####[facility] [address] [place] [address] [id number] [facility] Sodium [Moles/Vol] 142 mmol/L Normal 135-145 [facility] Comment on above: Performed By: #### 4 0716 ####[facility] [address] [place] [address] [id number] [facility] POC GLUCOSE [facility] 024 Glucose [Mass/Vol] 144 mg/dL High 65-99 [facility] Comment on above: Performed By: #### 4 6993 ####[facility] [address] [place] [address] [id number] [facility] Glucose [Mass/Vol] 144 mg/dL High 65-99 [facility] Comment on above: Performed By: #### 4 6994 ####[facility] [address] [place] [address] [id number] [facility] Glucose [Mass/Vol] 182 mg/dL High 65-99 [facility] Comment on above: Performed By: #### 4 69 ####[facility] [address] [place] [address] [id number] [facility] Glucose [Mass/Vol] 156 mg/dL High 65-99 [facility] Comment on above: Performed By: #### 4 6933 ####[facility] [address] [place] [address] [id number] [facility] Glucose [Mass/Vol] 172 mg/dL High 65-99 [facility] Comment on above: Performed By: #### 4 6932 ####[facility] [address] [place] [address] [id number] [facility] Glucose [Mass/Vol] 202 mg/dL [facility] 65-99 [facility] Comment on above: Performed By: #### 4 6997 ####[facility] [address] [place] [address] [id number] [facility] TRIGLYCERIDESon 04-28-2024 Triglyceride [Mass/Vol] 525 mg/dL High 30-150 [facility] Comment on above: Performed By: #### 4 6606 ####[facility] [address] [place] [address] Huber Prado M.D. [id number] BASIC METABOLIC PANELon 03-31 Anion gap [Moles/Vol] 22 mmol/L High 10-20 [facility] Comment on above: Order Comment: [facility] has implemented the eGFR calculation approach that does not have a coefficient for race that conforms to the NKF-ASN Task Force Recommendations. Performed By: #### 4 6124 ####[facility] [address] [place] [address] 346[address] Huber Prado M.D. [id number] Calcium [Mass/Vol] 9.1 mg/dL Normal 8.4-10.2 [facility] Comment on above: Order Comment: [facility] has implemented the eGFR calculation approach that does not have a coefficient for race that conforms to the NKF-ASN Task Force Recommendations. Performed By: #### 4 6124 ####[facility] [address] [place], [place] [address] Huber Prado M.D. [id number] Chloride [Moles/Vol] 98 mmol/L Normal 98-108 [facility] Comment on above: Order Comment: [facility] has implemented the eGFR calculation approach that does not have a coefficient for race that conforms to the NKF-ASN Task Force Recommendations. Performed By: #### 4 6124 ####[facility] [address] [place] [address] 76669 Huber Prado M.D. [id number] Creatinine [Mass/Vol] 4.17 mg/dL High 0.40-1.10 [facility] Comment on above: Order Comment: [facility] has implemented the eGFR calculation approach that does not have a coefficient for race that conforms to the NKF-ASN Task Force Recommendations. Performed By: #### 4 6124 ####[facility] [address] [place] [address] 84778 Huber Prado M.D. [id number] EGFR 14 mL/min/1.73 m2 Low >=60 [facility] Comment on above: Order Comment: [facility] has implemented the eGFR calculation approach that does not have a coefficient for race that conforms to the NKF-ASN Task Force Recommendations. Result Comment: Neema mated GFR was calculated using the 2020 CKD-EPI creatinine equation. Performed By: #### 4 6124 ####[facility] [address] [place] [address] 68738 Huber Prado M.D. [id number] Glucose [Mass/Vol] 156 mg/dL High 65-99 [facility] Comment on above: Order Comment: [facility] has implemented the eGFR calculation approach that does not have a coefficient for race that conforms to the NKF-ASN Task Force Recommendations. Performed By: #### 4 6124 ####[facility] [address] [place] [address] 17103 Huber Prado M.D. [id number] HCO3 (Bld) [Moles/Vol] 29 mmol/L Normal 21-32 [facility] Comment on above: Order Comment: [facility] has implemented the eGFR calculation approach that does not have a coefficient for race that conforms to the NKF-ASN Task Force Recommendations. Performed By: #### 4 6124 ####[facility] [address] [place] [address] 59587 Huber Prado M.D. [id number] Potassium [Moles/Vol] 5.6 mmol/L High 3.5-5.1 [facility] Comment on above: Order Comment: [facility] has implemented the eGFR calculation approach that does not have a coefficient for race that conforms to the NKF-ASN Task Force Recommendations. Result Comment: Slig htly Hemolyzed Performed By: #### 4 6124 ####[facility] [address] [place] [address] 01913 Huber Prado M.D. [id number] Sodium [Moles/Vol] 143 mmol/L Normal 135-145 [facility] Comment on above: Order Comment: [facility] has implemented the eGFR calculation approach that does not have a coefficient for race that conforms to the NKF-ASN Task Force Recommendations. Performed By: #### 4 6124 ####[facility] [address] [place] [address] 46047 Huber Prado M.D. [id number] Urea nitrogen [Mass/Vol] 76 mg/dL High 8-25 [facility] Comment on above: Order Comment: [facility] has implemented the eGFR calculation approach that does not have a coefficient for race that conforms to the NKF-ASN Task Force Recommendations. Performed By: #### 4 6124 ####[facility] [address] [place] [address] 34409 Huber Prado M.D. [id number] Urea nitrogen/Creatinine [Mass ratio] 18.2 mg/mg Normal 10.0-20.0 [facility] Comment on above: Order Comment: [facility] [facility] has implemented the eGFR calculation approach that does not have a coefficient for race that conforms to the NKF-ASN Task Force Recommendations. Performed By: #### 4 [id number] ####[facility] [address] [place] [address] [id number] Huber Prado M.D. [id number] Anion gap [Moles/Vol] 21 mmol/L High 10-20 [facility] Comment on above: Order Comment: [facility] has implemented the eGFR calculation approach that does not have a coefficient for race that conforms to the NKF-ASN Task Force Recommendations. Performed By: #### 4 [id number] ####[facility] [address] [place] [address] [id number] Huber Prado M.D. [id number] Calcium [Mass/Vol] 8.9 mg/dL Normal 8.4-10.2 [facility] Comment on above: Order Comment: [facility] has implemented the eGFR calculation approach that does not have a coefficient for race that conforms to the NKF-ASN Task Force Recommendations. Performed By: #### 4 [id number] ####[facility] [address] [place] [address] [id number] Huber Prado M.D. [id number] Chloride [Moles/Vol] 101 mmol/L Normal 98-108 [facility] Comment on above: Order Comment: [facility] has implemented the eGFR calculation approach that does not have a coefficient for race that conforms to the NKF-ASN Task Force Recommendations. Performed By: #### 4 [id number] ####[facility] [address] [place], [place] [id number] Huber Prado M.D. [id number] Creatinine [Mass/Vol] 4.09 mg/dL High 0.40-1.10 [facility] Comment on above: Order Comment: [facility] has implemented the eGFR calculation approach that does not have a coefficient for race that conforms to the NKF-ASN Task Force Recommendations. Performed By: #### 4 [id number] ####[facility] [address] [place], [place] [id number] Huber Prado M.D. [id number] EGFR 14 mL/min/1.73 m2 Low >=60 [facility] Comment on above: Order Comment: [facility] has implemented the eGFR calculation approach that does not have a coefficient for race that conforms to the NKF-ASN Task Force Recommendations. Result Comment: Neema mated GFR was calculated using the 2020 CKD-EPI creatinine equation. Performed By: #### 4 [id number] ####[facility] [address] [place], [place] [id number] Huber Prado M.D. [id number] Glucose [Mass/Vol] 162 mg/dL High 65-99 [facility] Comment on above: Order Comment: [facility] has implemented the eGFR calculation approach that does not have a coefficient for race that conforms to the NKF-ASN Task Force Recommendations. Performed By: #### 4 [id number] ####[facility] [address] [place] [address] [id number] Huber Prado M.D. [id number] HCO3 (Bld) [Moles/Vol] 26 mmol/L Normal 21-32 [facility] Comment on above: Order Comment: [facility] has implemented the eGFR calculation approach that does not have a coefficient for race that conforms to the NKF-ASN Task Force Recommendations. Performed By: #### 4 [id number] ####[facility] [address] [place] [address] Huber Prado M.D. [id number] Potassium [Moles/Vol] 5.4 mmol/L High 3.5-5.1 [facility] Comment on above: Order Comment: [facility] has implemented the eGFR calculation approach that does not have a coefficient for race that conforms to the NKF-ASN Task Force Recommendations. Result Comment: Lb htmynor Hemolyzed Performed By: #### 4 [id number] ####[facility] [address] [place], [place] [id number] Huber Prado M.D. [id number] Sodium [Moles/Vol] 143 mmol/L Normal 135-145 [facility] Comment on above: Order Comment: [facility] has implemented the eGFR calculation approach that does not have a coefficient for race that conforms to the NKF-ASN Task Force Recommendations. Performed By: #### 4 [id number] ####[facility] [address] [place], [place] [id number] Huber Prado M.D. [id number] Urea nitrogen [Mass/Vol] 73 mg/dL High 8-25 [facility] Comment on above: Order Comment: [facility] has implemented the eGFR calculation approach that does not have a coefficient for race that conforms to the NKF-ASN Task Force Recommendations. Performed By: #### 4 [id number] ####[facility] [address] [place], [place] [id number] Huber Prado M.D. [id number] Urea nitrogen/Creatinine [Mass ratio] 17.8 mg/mg Normal 10.0-20.0 [facility] Comment on above: Order Comment: [facility] has implemented the eGFR calculation approach that does not have a coefficient for race that conforms to the NKF-ASN Task Force Recommendations. Performed By: #### 4 [id number] ####[facility] [address] [place] [address] Huber Prado M.D. [id number] CBC WITH AUTO DIFFERENTIALon 04-27-2024 AUTO NRBC 0.0 % Normal [facility] Comment on above: Performed By: #### L [id number] ####[facility] [address] [place] [address] Huber Prado M.D. [id number] AUTO NRBC ABS COUNT 0.00 K/mcL Normal 0.00-0.00 [facility] Comment on above: Performed By: #### L [id number] ####[facility] [address] [place] [address] Huber Prado M.D. [id number] BASOPHILS ABSOLUTE COUNT 0.09 K/mcL Normal 0.00-0.30 [facility] Comment on above: Performed By: #### L [id number] ####[facility] [address] [place] [address] Huber Prado M.D. [id number] Basophils/100 WBC (Bld) 0.8 % Normal [facility] Comment on above: Performed By: #### L [id number] ####[facility] [address] [place] [address] Huber Prado M.D. [id number] Eosinophils (Bld) [#/Vol] 0.46 10*3/uL Normal 0.00-0.50 [facility] Comment on above: Performed By: #### L [id number] ####[facility] [address] [place] [address] Huber Prado M.D. [id number] Eosinophils/100 WBC (Bld) 4.2 % Normal [facility] Comment on above: Performed By: #### L [id number] ####[facility] [address] [place] [address] Huber Prado M.D. [id number] Erythrocyte distribution width (RBC) [Ratio] 14.8 % Normal 11.6-14.8 [facility] Comment on above: Performed By: #### L [id number] ####[facility] [address] [place] [address] Huber Prado M.D. [id number] Hematocrit (Bld) [Volume fraction] 29.5 % Low 36.0-46.0 [facility] Comment on above: Performed By: #### L [id number] ####[facility] [address] [place] [address] Huber Prado M.D. [id number] Hemoglobin (Bld) [Mass/Vol] 9.3 g/dL Low 12.0-16.0 [facility] Comment on above: Performed By: #### L [id number] ####[facility] [address] [place] [address] Huber Prado M.D. [id number] IG ABSOLUTE 0.18 K/mcL Normal 0.00-0.30 [facility] Comment on above: Performed By: #### L [id number] ####[facility] [address] [place] [address] Huber Prado M.D. [id number] IG PERCENT 1.60 % Normal [facility] Comment on above: Result Comment: The IG parameter is the percentage of metamyelocytes, myelocytes and promyelocytes. An immature granulocyte count (IG) of 1% or more suggests the possibility of infection, an IG count of 3% is very likely related to an infection. Performed By: #### L [id number] ####[facility] [address] [place] [address] Huber Prado M.D. [id number] Lymphocytes (Bld) [#/Vol] 1.21 10*3/uL Normal 0.90-4.00 [facility] Comment on above: Performed By: #### Tasha [id number] ####[facility] [address] [place] [address] Huber Prado M.D. [id number] Lymphocytes/100 WBC (Bld) 10.9 % Normal [facility] Comment on above: Performed By: #### Tasha [id number] ####[facility] [address] [place] [address] Huber Prado M.D. [id number] MCH (RBC) [Entitic mass] 29.7 pg Normal 26.0-34.0 [facility] Comment on above: Performed By: #### Tasha [id number] ####[facility] [address] [place] [address] Huber Prado M.D. [id number] MCV (RBC) [Entitic vol] 94.2 fL Normal 80.0-100.0 [facility] Comment on above: Performed By: #### Tasha [id number] ####[facility] [address] [place] [address] Huber Prado M.D. [id number] MEAN CORPUSCULAR HEMOGLOBIN CONC 31.5 g/dL Normal 31.0-37.0 [facility] Comment on above: Performed By: #### Tasha [id number] ####[facility] [address] [place] [address] Huber Prado M.D. [id number] Monocytes (Bld) [#/Vol] 1.35 10*3/uL High 0.30-0.90 [facility] Comment on above: Performed By: #### Tasha [id number] ####[facility] [address] [place] [address] Huber Prado M.D. [id number] Monocytes/100 WBC (Bld) 12.2 % Normal [facility] Comment on above: Performed By: #### Tasha [id number] ####[facility] [address] [place], [place] [id number] Huber Prado M.D. [id number] NEUTROPHILS ABSOLUTE COUNT 7.77 K/mcL High 1.70-7.00 [facility] Comment on above: Performed By: #### Tasha [id number] ####[facility] [address] [place] [address] Huber Prado M.D. [id number] Neutrophils/100 WBC (Bld) 70.3 % Normal [facility] Comment on above: Performed By: #### Tasha [id number] ####[facility] [address] [place] [address] Huber Prado M.D. [id number] Platelet mean volume (Bld) [Entitic vol] 11.0 fL Normal 9.4-12.4 [facility] Comment on above: Performed By: #### Tasha [id number] ####[facility] [address] [place], [place] [id number] Huber Prado M.D. [id number] Platelets (Bld) [#/Vol] 226 10*3/uL Normal 150-400 [facility] Comment on above: Performed By: #### L [id number] ####[facility] [address] [place], [place] [id number] Huber Prado M.D. [id number] RBC (Bld) [#/Vol] 3.13 10*6/uL Low 4.00-5.20 [facility] Comment on above: Performed By: #### L [id number] ####[facility] [address] [place], [place] [id number] Huber Prado M.D. [id number] WBC (Bld) [#/Vol] 11.06 10*3/uL High 4.50-11.00 [facility] Comment on above: Performed By: #### L [id number] ####[facility] [address] [place] [address] Huber Prado M.D. [id number] POC GLUCOSE - [facility] 024 Glucose [Mass/Vol] 170 mg/dL High [address] [place] [address] Comment on above: Performed By: #### 4 [id number] ####[facility] [address] [place] [address] [id number] [facility] Glucose [Mass/Vol] 146 mg/dL [address] Comment on above: Performed By: #### 4 [id number] ####[facility] [address] [place] [address] [id number] [facility] Glucose [Mass/Vol] 153 mg/dL [address] Comment on above: Performed By: #### 4 [id number] ####[facility] [address] [place] [address] [id number] [facility] Glucose [Mass/Vol] 152 mg/dL [address] Comment on above: Performed By: #### 4 [id number] ####[facility] [address] [place] [address] [id number] [facility] Glucose [Mass/Vol] 199 mg/dL [address] Comment on above: Performed By: #### 4 [id number] ####[facility] [address] [place] [address] [id number] [facility] Glucose [Mass/Vol] 127 mg/dL [address] Comment on above: Performed By: #### 4 6927 ####[facility] [address] [place] [address] [id number] [facility] Glucose [Mass/Vol] 157 mg/dL [address] Comment on above: Performed By: #### 4 [id number] ####[facility] [address] [place] [address] [id number] [facility] Glucose [Mass/Vol] 143 mg/dL [address] Comment on above: Performed By: #### 4 [id number] ####[facility] [address] [place] [address] [id number] [facility] Glucose [Mass/Vol] 140 mg/dL [address] Comment on above: Performed By: #### 4 [id number] ####[facility] [address] [place] [address] [id number] [facility] Glucose [Mass/Vol] 167 mg/dL [address] Comment on above: Performed By: #### 4 [id number] ####[facility] [address] [place] [address] [id number] [facility] XR CHEST PA/APon 04-27-2024 XR CHEST PA/AP Normal [facility] Comment on above: Order Comment: Injur y/Trauma or Illness?:Illness/OtherHow long have you had these symptoms (acute/chronic)?:AcuteReason for exam?:concern for mucus pluggingHistory of cancer?:UnknownSurgeries, chemotherapy, or radiation?:YesType of Exam?:OngoingAdditional signs and symptoms?:concern for mucus plugging BASIC METABOLIC PANELon 03-31 Anion gap [Moles/Vol] 19 mmol/L Normal 10-20 [facility] Comment on above: Order Comment: [facility] has implemented the eGFR calculation approach that does not have a coefficient for race that conforms to the NKF-ASN Task Force Recommendations. Performed By: #### 4 [id number] ####[facility] [address] [place] [address] Huber Prado M.D. [id number] Calcium [Mass/Vol] 8.9 mg/dL Normal 8.4-10.2 [facility] Comment on above: Order Comment: [facility] has implemented the eGFR calculation approach that does not have a coefficient for race that conforms to the NKF-ASN Task Force Recommendations. Performed By: #### 4 [id number] ####[facility] [address] [place] [address] 05367 Huber Prado M.D. [id number] Chloride [Moles/Vol] 101 mmol/L Normal 98-108 [facility] Comment on above: Order Comment: [facility] has implemented the eGFR calculation approach that does not have a coefficient for race that conforms to the NKF-ASN Task Force Recommendations. Performed By: #### 4 [id number] ####[facility] [address] [place] [address] 61849 Huber Prado M.D. [id number] Creatinine [Mass/Vol] 3.68 mg/dL High 0.40-1.10 [facility] Comment on above: Order Comment: [facility] has implemented the eGFR calculation approach that does not have a coefficient for race that conforms to the NKF-ASN Task Force Recommendations. Performed By: #### 4 [id number] ####[facility] [address] [place] [address] 84138 Huber Prado M.D. [id number] EGFR 16 mL/min/1.73 m2 Low >=60 [facility] Comment on above: Order Comment: [facility] has implemented the eGFR calculation approach that does not have a coefficient for race that conforms to the NKF-ASN Task Force Recommendations. Result Comment: Neema mated GFR was calculated using the 2020 CKD-EPI creatinine equation. Performed By: #### 4 [id number] ####[facility] [address] [place] [address] Huber Prado M.D. [id number] Glucose [Mass/Vol] 175 mg/dL High 65-99 [facility] Comment on above: Order Comment: [facility] has implemented the eGFR calculation approach that does not have a coefficient for race that conforms to the NKF-ASN Task Force Recommendations. Performed By: #### 4 [id number] ####[facility] [address] [place] [address] 73663 Huber Prado M.D. [id number] HCO3 (Bld) [Moles/Vol] 28 mmol/L Normal 21-32 [facility] Comment on above: Order Comment: [facility] has implemented the eGFR calculation approach that does not have a coefficient for race that conforms to the NKF-ASN Task Force Recommendations. Performed By: #### 4 6124 ####[facility] [address] [place] [address] 10661 Huber Prado M.D. [id number] Potassium [Moles/Vol] 4.7 mmol/L Normal 3.5-5.1 [facility] Comment on above: Order Comment: [facility] has implemented the eGFR calculation approach that does not have a coefficient for race that conforms to the NKF-ASN Task Force Recommendations. Performed By: #### 4 [id number] ####[facility] [address] [place] [address] 25576 Huber Prado M.D. [id number] Sodium [Moles/Vol] 143 mmol/L Normal 135-145 [facility] Comment on above: Order Comment: [facility] has implemented the eGFR calculation approach that does not have a coefficient for race that conforms to the NKF-ASN Task Force Recommendations. Performed By: #### 4 [id number] ####[facility] [address] [place] [address] 78901 Huber Prado M.D. [id number] Urea nitrogen [Mass/Vol] 64 mg/dL High 8-25 [facility] Comment on above: Order Comment: [facility] has implemented the eGFR calculation approach that does not have a coefficient for race that conforms to the NKF-ASN Task Force Recommendations. Performed By: #### 4 [id number] ####[facility] [address] [place] [address] 81344 Huber Prado M.D. [id number] Urea nitrogen/Creatinine [Mass ratio] 17.4 mg/mg Normal 10.0-20.0 [facility] Comment on above: Order Comment: [facility] has implemented the eGFR calculation approach that does not have a coefficient for race that conforms to the NKF-ASN Task Force Recommendations. Performed By: #### 4 [id number] ####[facility] [address] [place] [address] Huber Prado M.D. [id number] CBC WITH AUTO DIFFERENTIALon 04-26-2024 AUTO NRBC 0.0 % Normal [facility] Comment on above: Performed By: #### L [id number] ####[facility] [address] [place] [address] Huber Prado M.D. [id number] AUTO NRBC ABS COUNT 0.00 K/mcL Normal 0.00-0.00 [facility] Comment on above: Performed By: #### L [id number] ####[facility] [address] [place] [address] Huber Prado M.D. [id number] BASOPHILS ABSOLUTE COUNT 0.08 K/mcL Normal 0.00-0.30 [facility] Comment on above: Performed By: #### L [id number] ####[facility] [address] [place] [address] Huber Prado M.D. [id number] Basophils/100 WBC (Bld) 0.7 % Normal [facility] Comment on above: Performed By: #### L [id number] ####[facility] [address] [place] [address] Huber Prado M.D. [id number] Eosinophils (Bld) [#/Vol] 0.28 10*3/uL Normal 0.00-0.50 [facility] Comment on above: Performed By: #### L [id number] ####[facility] [address] [place] [address] Huber Prado M.D. [id number] Eosinophils/100 WBC (Bld) 2.3 % Normal [facility] Comment on above: Performed By: #### L [id number] ####[facility] [address] [place] [address] Huber Prado M.D. [id number] Erythrocyte distribution width (RBC) [Ratio] 15.1 % High 11.6-14.8 [facility] Comment on above: Performed By: #### L [id number] ####[facility] [address] [place] [address] Huber Prado M.D. [id number] Hematocrit (Bld) [Volume fraction] 35.1 % Low 36.0-46.0 [facility] Comment on above: Performed By: #### L [id number] ####[facility] [address] [place] [address] Huber Prado M.D. [id number] Hemoglobin (Bld) [Mass/Vol] 10.9 g/dL Low 12.0-16.0 [facility] Comment on above: Performed By: #### L [id number] ####[facility] [address] [place] [address] Huber Prado M.D. [id number] IG ABSOLUTE 0.17 K/mcL Normal 0.00-0.30 [facility] Comment on above: Performed By: #### L [id number] ####[facility] [address] [place] [address] Huber Prado M.D. [id number] IG PERCENT 1.40 % Normal [facility] Comment on above: Result Comment: The IG parameter is the percentage of metamyelocytes, myelocytes and promyelocytes. An immature granulocyte count (IG) of 1% or more suggests the possibility of infection, an IG count of 3% is very likely related to an infection. Performed By: #### L [id number] ####[facility] [address] [place] [address] Huber Prado M.D. [id number] Lymphocytes (Bld) [#/Vol] 1.44 10*3/uL Normal 0.90-4.00 [facility] Comment on above: Performed By: #### L [id number] ####[facility] [address] [place] [address] Huber Prado M.D. [id number] Lymphocytes/100 WBC (Bld) 11.8 % Normal [facility] Comment on above: Performed By: #### L [id number] ####[facility] [address] [place] [address] Huber Prado M.D. [id number] MCH (RBC) [Entitic mass] 30.4 pg Normal 26.0-34.0 [facility] Comment on above: Performed By: #### L [id number] ####[facility] [address] [place], [place] [id number] Huber Prado M.D. [id number] MCV (RBC) [Entitic vol] 98.0 fL Normal 80.0-100.0 [facility] Comment on above: Performed By: #### L [id number] ####[facility] [address] [place], [place] [id number] Huber Prado M.D. [id number] MEAN CORPUSCULAR HEMOGLOBIN CONC 31.1 g/dL Normal 31.0-37.0 [facility] Comment on above: Performed By: #### L [id number] ####[facility] [address] [place] [address] Huber Prado M.D. [id number] Monocytes (Bld) [#/Vol] 1.69 10*3/uL High 0.30-0.90 [facility] Comment on above: Performed By: #### L [id number] ####[facility] [address] [place], [place] [id number] Huber Prado M.D. [id number] Monocytes/100 WBC (Bld) 13.9 % Normal [facility] Comment on above: Performed By: #### L [id number] ####[facility] [address] [place] [address] Huber Prado M.D. [id number] NEUTROPHILS ABSOLUTE COUNT 8.54 K/mcL High 1.70-7.00 [facility] Comment on above: Performed By: #### L [id number] ####[facility] [address] [place] [address] Huber Prado M.D. [id number] Neutrophils/100 WBC (Bld) 69.9 % Normal [facility] Comment on above: Performed By: #### L [id number] ####[facility] [address] [place], [place] [id number] Huber Prado M.D. [id number] Platelet mean volume (Bld) [Entitic vol] 11.2 fL Normal 9.4-12.4 [facility] Comment on above: Performed By: #### L [id number] ####[facility] [address] [place], [place] [id number] Huber Prado M.D. [id number] Platelets (Bld) [#/Vol] 205 10*3/uL Normal 150-400 [facility] Comment on above: Performed By: #### L [id number] ####[facility] [address] [place], [place] [id number] Huber Prado M.D. [id number] RBC (Bld) [#/Vol] 3.58 10*6/uL Low 4.00-5.20 [facility] Comment on above: Performed By: #### L [id number] ####[facility] [address] [place] [address] Huber Prado M.D. [id number] WBC (Bld) [#/Vol] 12.20 10*3/uL High 4.50-11.00 [facility] Comment on above: Performed By: #### L [id number] ####[facility] [address] [place] [address] Huber Prado M.D. [id number] POC GLUCOSE [facility] 024 Glucose [Mass/Vol] 158 mg/dL [address] Comment on above: Performed By: #### 4 6932 ####[facility] [address] [place] [address] [id number] [facility] Glucose [Mass/Vol] 146 mg/dL [address] Comment on above: Performed By: #### 4 6932 ####[facility] [address] [place] [address] [id number] [facility] Glucose [Mass/Vol] 150 mg/dL [address] Comment on above: Performed By: #### 4 6932 ####[facility] [address] [place] [address] [id number] [facility] Glucose [Mass/Vol] 149 mg/dL [address] Comment on above: Performed By: #### 4 6954 ####[facility] [address] [place] [address] [id number] [facility] Glucose [Mass/Vol] 164 mg/dL [address] Comment on above: Performed By: #### 4 6929 ####[facility] [address] [place] [address] [id number] [facility] Glucose [Mass/Vol] 164 mg/dL [address] Comment on above: Performed By: #### 4 6964 ####[facility] [address] [place] [address] [id number] [facility] Glucose [Mass/Vol] 182 mg/dL High 65 [facility] Comment on above: Performed By: #### 4 6932 ####[facility] [address] [place] [address] [id number] [facility] Glucose [Mass/Vol] 183 mg/dL High [facility] Comment on above: Performed By: #### 4 6932 ####[facility] [address] [place] [address] [id number] [facility] Glucose [Mass/Vol] 192 mg/dL High [facility] Comment on above: Performed By: #### 4 6932 ####[facility] [address] [place] [address] [id number] [facility] TRIGLYCERIDESon 04-26-2024 Triglyceride [Mass/Vol] 520 mg/dL High 30-150 [facility] Comment on above: Result Comment: [facility] onal Cholesterol Education Program Guidelines: TriglycerideNormal: <150 mg/dLBorderline High: 150-199 mg/dLHigh: 200-499 mg/dLVery High: greater than or equal to 500 mg/dL Performed By: #### 4 6606 ####[facility] [address] [place] [address] Huber Prado M.D. [id number] BASIC METABOLIC PANELon 03-31 Anion gap [Moles/Vol] 23 mmol/L High 10-20 [facility] Comment on above: Order Comment: [facility] has implemented the eGFR calculation approach that does not have a coefficient for race that conforms to the NKF-ASN Task Force Recommendations. Performed By: #### 4 6124 ####[facility] [address] [place] [address] Huber Prado M.D. [id number] Calcium [Mass/Vol] 8.9 mg/dL Normal 8.4-10.2 [facility] Comment on above: Order Comment: [facility] has implemented the eGFR calculation approach that does not have a coefficient for race that conforms to the NKF-ASN Task Force Recommendations. Performed By: #### 4 6124 ####[facility] [address] [place] [address] Huber Prado M.D. [id number] Chloride [Moles/Vol] 100 mmol/L Normal 98-108 [facility] Comment on above: Order Comment: [facility] has implemented the eGFR calculation approach that does not have a coefficient for race that conforms to the NKF-ASN Task Force Recommendations. Performed By: #### 4 6124 ####[facility] [address] [place], [place] [id number] Huber Prado M.D. [id number] Creatinine [Mass/Vol] 3.99 mg/dL High 0.40-1.10 [facility] Comment on above: Order Comment: [facility] has implemented the eGFR calculation approach that does not have a coefficient for race that conforms to the NKF-ASN Task Force Recommendations. Performed By: #### 4 6124 ####[facility] [address] [place] [address] Huber Prado M.D. [id number] EGFR 14 mL/min/1.73 m2 Low >=60 [facility] Comment on above: Order Comment: [facility] has implemented the eGFR calculation approach that does not have a coefficient for race that conforms to the NKF-ASN Task Force Recommendations. Result Comment: Neema mated GFR was calculated using the 2020 CKD-EPI creatinine equation. Performed By: #### 4 6124 ####[facility] [address] [place] [address] Huber Prado M.D. [id number] Glucose [Mass/Vol] 219 mg/dL High 65-99 [facility] Comment on above: Order Comment: [facility] has implemented the eGFR calculation approach that does not have a coefficient for race that conforms to the NKF-ASN Task Force Recommendations. Performed By: #### 4 6124 ####[facility] [address] [place] [address] Huber Prado M.D. [id number] HCO3 (Bld) [Moles/Vol] 29 mmol/L Normal 21-32 [facility] Comment on above: Order Comment: [facility] has implemented the eGFR calculation approach that does not have a coefficient for race that conforms to the NKF-ASN Task Force Recommendations. Performed By: #### 4 6124 ####[facility] [address] [place] [address] Huber Prado M.D. [id number] Potassium [Moles/Vol] 5.1 mmol/L Normal 3.5-5.1 [facility] Comment on above: Order Comment: [facility] has implemented the eGFR calculation approach that does not have a coefficient for race that conforms to the NKF-ASN Task Force Recommendations. Performed By: #### 4 6124 ####[facility] [address] [place] [address] Huber Prado M.D. [id number] Sodium [Moles/Vol] 147 mmol/L High 135-145 [facility] Comment on above: Order Comment: [facility] has implemented the eGFR calculation approach that does not have a coefficient for race that conforms to the NKF-ASN Task Force Recommendations. Performed By: #### 4 6124 ####[facility] [address] [place] [address] Huber Prado M.D. [id number] Urea nitrogen [Mass/Vol] 61 mg/dL High 8-25 [facility] Comment on above: Order Comment: [facility] has implemented the eGFR calculation approach that does not have a coefficient for race that conforms to the NKF-ASN Task Force Recommendations. Performed By: #### 4 6124 ####[facility] [address] [place] [address] Huber Prado M.D. [id number] Urea nitrogen/Creatinine [Mass ratio] 15.3 mg/mg Normal 10.0-20.0 [facility] Comment on above: Order Comment: [facility] has implemented the eGFR calculation approach that does not have a coefficient for race that conforms to the NKF-ASN Task Force Recommendations. Performed By: #### 4 6124 ####[facility] [address] [place], [place] [id number] Huber Prado M.D. [id number] BETA-HYDROXYBUTYRATEon 04-25 BETA-HYDROXYBUTYRATE 0.9 mmol/L High 0.0-0.3 [facility] Comment on above: Performed By: #### 4 5139 ####[facility] [address] [place], [place] [address] Huber Prado M.D. [id number] BRONCHIAL AEROBIC CULTUREon 04-25-2024 BRONCHIAL AEROBIC CULTURE AEROBIC CULTURE Normal Fang after 48 hrs GRAM STAIN RESULT Few Mixed Fang Moderate WBC Few Epithelial Cells Normal [facility] Comment on above: Performed By: #### 4 4017 ####[facility] [address] [place], [place] [address] Huber Prado M.D. [id number] BRONCHIAL AFB CULTUREon 03-31 BRONCHIAL [employer] CULTURE AFB CULTURE No Growth of Acid Fast Bacilli after 8 Weeks AFB STAIN (2018) No Acid Fast Bacilli Seen Normal [facility] Comment on above: Performed By: #### 4 4208 ####[facility] [address] [place] [address] Huber Prado M.D. [id number] BRONCHIAL FUNGUS CULTUREon 0 04-25-2024 BRONCHIAL FUNGUS CULTURE FUNGUS CULTURE No Fungus Isolated At 4 Weeks FUNGAL SMEAR No Fungal or Yeast Elements Normal [facility] Comment on above: Performed By: #### 4 4211 ####[facility] [address] [place], [place] [address] Huber Prado M.D. [id number] BRONCHIAL LEGIONELLA CULTURE on 04-25-2024 BRONCHIAL LEGIONELLA CULTURE LEGIONELLA CULTURE No Legionella species isolated Normal [facility] Comment on above: Performed By: #### 4 4212 ####[facility] [address] [place] [address] Huber Prado M.D. [id number] CONSULTon 04-25-2024 CONSULT Normal [facility] CONSULT Normal [facility] CONSULT Normal [facility] LACTIC ACID, PLASMAon 2023 LACTIC ACID, PLASMA 1.8 mmol/L Normal 0.6-2.0 [facility] Comment on above: Performed By: #### 4 6053 ####[facility] [address] [place], [place] [id number] Huber Prado M.D. [id number] MRSA DNA AMPLIFIED PROBEon 0 04-25-2024 MRSA DNA AMPLIFIED PROBE Not detected Normal Not Detected, MRSA NEGATIVE [facility] Comment on above: Performed By: #### 4 8061 ####[facility] [address] [place], [place] [address] Huber Prado M.D. [id number] PNEUMOCYSTIS SMEAR BY DFAon 04-25-2024 PNEUMOCYSTIS SMEAR BY DFA PNEUMOCYSTIS SMEAR, DFA Negative for Pneumocystis jirovecii Normal Negative for Pneumocystis jirovecii [facility] Comment on above: Performed By: #### 4 4100 ####[facility] [address] [place], [place] [address] Huber Prado M.D. [id number] POC ARTERIAL BLOOD GAS PANEL -[facility] 04-25-2024 BASE EXCESS, ARTERIAL 8.1 High -2.0-2.0 [facility] Comment on above: Performed By: #### 4 8716 ####[facility] [address] [place] [address] [id number] [facility] CALCIUM IONIZED 4.5 mg/dL Normal 4.5-5.3 [facility] Comment on above: Performed By: #### 4 8716 ####[facility] [address] [place] [address] [id number] [facility] CARBOXYHEMOGLOBIN 1.5 % of total Hb Normal <=1.5 [facility] Comment on above: Result Comment: Refe rence Ranges:Suburban Non-smokers: <1.5%Smokers: 1.5-5.0%Heavy Smokers: 5.0-9.0% Performed By: #### 4 9576 ####[facility] [address] [place] [address] [id number] [facility] Chloride [Moles/Vol] 104 mmol/L Normal 98-108 [facility] Comment on above: Performed By: #### 4 3316 ####[facility] [address] [place] [address] [id number] [facility] FIO2 50 Normal [facility] Comment on above: Performed By: #### 4 4690 ####[facility] [address] [place] [address] [id number] [facility] Glucose [Mass/Vol] 209 mg/dL High 65-99 [facility] Comment on above: Performed By: #### 4 7916 ####[facility] [address] [place] [address] [id number] [facility] HCO3 (Bld) [Moles/Vol] 30.8 mmol/L High 22.0-26.0 [facility] Comment on above: Performed By: #### 4 2616 ####[facility] [address] [place] [address] [id number] [facility] Hematocrit (Bld) [Volume fraction] 34.0 % Low 36.0-46.0 [facility] Comment on above: Performed By: #### 4 8196 ####[facility] [address] [place] [address] [id number] [facility] Hemoglobin (Bld) [Mass/Vol] 11.1 g/dL Low 12.0-16.0 [facility] Comment on above: Performed By: #### 4 8716 ####[facility] [address] [place] [address] [id number] [facility] LACTIC ACID, WHOLE BLOOD 1.8 mmol/L Normal 0.6-2.0 [facility] Comment on above: Performed By: #### 4 8716 ####[facility] [address] [place] [address] [id number] [facility] METHEMOGLOBIN < Normal 0.0-2.0 [facility] Comment on above: Performed By: #### 4 8716 ####[facility] [address] [place] [address] [id number] [facility] O2HB 98.1 % High 94.0-98.0 [facility] Comment on above: Performed By: #### 4 0316 ####[facility] [address] [place] [address] [id number] [facility] Oxygen saturation in Blood 99.9 % High 92.0-99.0 [facility] Comment on above: Performed By: #### 4 8716 ####[facility] [address] [place] [address] [id number] [facility] PCO2 ARTERIAL 34.8 mm Hg Low 35.0-45.0 [facility] Comment on above: Performed By: #### 4 6816 ####[facility] [address] [place] [address] [id number] [facility] PEEP RAD 8 Normal [facility] Comment on above: Performed By: #### 4 9516 ####[facility] [address] [place] [address] [id number] [facility] PH ARTERIAL 7.56 High 7.35-7.45 [facility] Comment on above: Performed By: #### 4 0060 ####[facility] [address] [place] [address] [id number] [facility] PO2 ARTERIAL 151 mm Hg High 80-100 [facility] Comment on above: Performed By: #### 4 8716 ####[facility] [address] [place] [address] [id number] [facility] Potassium [Moles/Vol] 4.0 mmol/L Normal 3.5-5.1 [facility] Comment on above: Performed By: #### 4 8716 ####[facility] [address] [place] [address] [id number] [facility] RESP RATE RAD 30 [facility] Comment on above: Performed By: #### 4 8716 ####[facility] [address] [place] [address] [id number] [facility] RESULT NOTIFICATION Critical results giv en to:TETE SHEPPARD [facility] Comment on above: Performed By: #### 4 8716 ####[facility] [address] [place] [address] [id number] [facility] Sodium [Moles/Vol] 151 mmol/L High 135-145 [facility] Comment on above: Performed By: #### 4 8716 ####[facility] [address] [place] [address] [id number] [facility] POC GLUCOSE [facility] 024 Glucose [Mass/Vol] 211 mg/dL High 65-99 [facility] Comment on above: Performed By: #### 4 9432 ####[facility] [address] [place] [address] [id number] [facility] Glucose [Mass/Vol] 238 mg/dL High 65-99 [facility] Comment on above: Performed By: #### 4 1273 ####[facility] [address] [place] [address] [id number] [facility] Glucose [Mass/Vol] 264 mg/dL High 65-99 [facility] Comment on above: Performed By: #### 4 6932 ####[facility] [address] [place] [address] [id number] [facility] Glucose [Mass/Vol] 206 mg/dL High [address] [place] [address] Comment on above: Performed By: #### 4 6932 ####[facility] [address] [place] [address] [id number] [facility] Glucose [Mass/Vol] 187 mg/dL High [address] [place] [address] Comment on above: Performed By: #### 4 6932 ####[facility] [address] [place] [address] [id number] [facility] Glucose [Mass/Vol] 163 mg/dL High [address] [place] [address] Comment on above: Performed By: #### 4 6932 ####[facility] [address] [place] [address] [id number] [facility] RESPIRATORY PCR PANELon 03-31 RESPIRATORY PCR PANEL Normal Not Detected R [facility] Comment on above: Performed By: #### L [id number] ####[facility] [address] [place] [address] Huber Prado M.D. [id number] TRIGLYCERIDESon 04-25-2024 Triglyceride [Mass/Vol] 575 mg/dL High 30-150 [facility] Comment on above: Result Comment: [facility] onal Cholesterol Education Program Guidelines: TriglycerideNormal: <150 mg/dLBorderline High: 150-199 mg/dLHigh: 200-499 mg/dLVery High: greater than or equal to 500 mg/dL Performed By: #### 4 6606 ####[facility] [address] [place] [address] Huber Prado M.D. [id number] XR CHEST PA/APon 04-25-2024 XR CHEST PA/AP Normal [facility] Comment on above: Order Comment: Injur y/Trauma or Illness?:Illness/OtherHow long have you had these symptoms (acute/chronic)?:UnknownReason for exam?:ETT placementHistory of cancer?:UnknownSurgeries, chemotherapy, or radiation?:YesType of Exam?:Subsequent/Follow-upAdditional signs and symptoms?:/ CBC WITH AUTO DIFFERENTIALon 04-24-2024 AUTO NRBC 0.0 % Normal [facility] Comment on above: Performed By: #### L [id number] ####[facility] [address] [place] [address] Huber Prado M.D. [id number] AUTO NRBC ABS COUNT 0.00 K/mcL Normal 0.00-0.00 [facility] Comment on above: Performed By: #### L [id number] ####[facility] [address] [place] [address] Huber Prado M.D. [id number] BASOPHILS ABSOLUTE COUNT 0.06 K/mcL Normal 0.00-0.30 [facility] Comment on above: Performed By: #### L [id number] ####[facility] [address] [place] [address] Huber Prado M.D. [id number] Basophils/100 WBC (Bld) 0.5 % Normal [facility] Comment on above: Performed By: #### L [id number] ####[facility] [address] [place] [address] Huber Prado M.D. [id number] Eosinophils (Bld) [#/Vol] 0.05 10*3/uL Normal 0.00-0.50 [facility] Comment on above: Performed By: #### L [id number] ####[facility] [address] [place] [address] Huber Prado M.D. [id number] Eosinophils/100 WBC (Bld) 0.4 % Normal [facility] Comment on above: Performed By: #### L [id number] ####[facility] [address] [id number] Huber Prado M.D. [id number] Erythrocyte distribution width (RBC) [Ratio] 14.3 % Normal 11.6-14.8 [facility] Comment on above: Performed By: #### L [id number] ####[facility] [address] [place] [address] Huber Prado M.D. [id number] Hematocrit (Bld) [Volume fraction] 39.2 % Normal 36.0-46.0 [facility] Comment on above: Performed By: #### L [id number] ####[facility] [address] [place] [address] Huber Prado M.D. [id number] Hemoglobin (Bld) [Mass/Vol] 11.5 g/dL Low 12.0-16.0 [facility] Comment on above: Performed By: #### L [id number] ####[facility] [address] [place] [address] Huber Prado M.D. [id number] IG ABSOLUTE 0.07 K/mcL Normal 0.00-0.30 [facility] Comment on above: Performed By: #### L [id number] ####[facility] [address] [place] [address] Huber Prado M.D. [id number] IG PERCENT 0.60 % Normal [facility] Comment on above: Result Comment: The IG parameter is the percentage of metamyelocytes, myelocytes and promyelocytes. An immature granulocyte count (IG) of 1% or more suggests the possibility of infection, an IG count of 3% is very likely related to an infection. Performed By: #### L [id number] ####[facility] [address] [place] [address] Huber Prado M.D. [id number] Lymphocytes (Bld) [#/Vol] 0.66 10*3/uL Low 0.90-4.00 [facility] Comment on above: Performed By: #### Tasha [id number] ####[facility] [address] [place] [address] Huber Prado M.D. [id number] Lymphocytes/100 WBC (Bld) 5.3 % Normal [facility] Comment on above: Performed By: #### Tasha [id number] ####[facility] [address] [place] [address] Huber Prado M.D. [id number] MCH (RBC) [Entitic mass] 29.7 pg Normal 26.0-34.0 [facility] Comment on above: Performed By: #### Tasha [id number] ####[facility] [address] [place] [address] Huber Prado M.D. [id number] MCV (RBC) [Entitic vol] 101.3 fL High 80.0-100.0 [facility] Comment on above: Performed By: #### Tasha [id number] ####[facility] [address] [place] [address] Huber Prado M.D. [id number] MEAN CORPUSCULAR HEMOGLOBIN CONC 29.3 g/dL Low 31.0-37.0 [facility] Comment on above: Performed By: #### Tasha [id number] ####[facility] [address] [place] [address] Huber Prado M.D. [id number] Monocytes (Bld) [#/Vol] 1.42 10*3/uL High 0.30-0.90 [facility] Comment on above: Performed By: #### Tasha [id number] ####[facility] [address] [place] [address] Huber Prado M.D. [id number] Monocytes/100 WBC (Bld) 11.5 % Normal [facility] Comment on above: Performed By: #### L [id number] ####[facility] [address] [place], [place] [id number] Huber Prado M.D. [id number] NEUTROPHILS ABSOLUTE COUNT 10.11 K/mcL High 1.70-7.00 [facility] Comment on above: Performed By: #### Tasha [id number] ####[facility] [address] [place] [address] Huber Prado M.D. [id number] Neutrophils/100 WBC (Bld) 81.7 % Normal [facility] Comment on above: Performed By: #### L [id number] ####[facility] [address] [place] [address] Huber Prado M.D. [id number] Platelet mean volume (Bld) [Entitic vol] 11.1 fL Normal 9.4-12.4 [facility] Comment on above: Performed By: #### L [id number] ####[facility] [address] [place], [place] [id number] Huber Prado M.D. [id number] Platelets (Bld) [#/Vol] 180 10*3/uL Normal 150-400 [facility] Comment on above: Performed By: #### L [id number] ####[facility] [address] [place], [place] [id number] Huber Prado M.D. [id number] RBC (Bld) [#/Vol] 3.87 10*6/uL Low 4.00-5.20 [facility] Comment on above: Performed By: #### L [id number] ####[facility] [address] [place], [place] [id number] Huber Prado M.D. [id number] WBC (Bld) [#/Vol] 12.37 10*3/uL High 4.50-11.00 [facility] Comment on above: Performed By: #### L [id number] ####[facility] [address] [place] [address] [id number] Huber Prado M.D. [id number] CHEM 704-24-2024 Anion gap [Moles/Vol] 20 mmol/L Normal 10-20 [facility] Comment on above: Order Comment: [facility] has implemented the eGFR calculation approach that does not have a coefficient for race that conforms to the NKF-ASN Task Force Recommendations. Performed By: #### 4 [id number] ####[facility] [address] [place] [address] 08923 Huber Prado M.D. [id number] Chloride [Moles/Vol] 102 mmol/L Normal 98-108 [facility] Comment on above: Order Comment: [facility] has implemented the eGFR calculation approach that does not have a coefficient for race that conforms to the NKF-ASN Task Force Recommendations. Performed By: #### 4 [id number] ####[facility] [address] [place] [address] 80673 Huber Prado M.D. [id number] Creatinine [Mass/Vol] 3.63 mg/dL High 0.40-1.10 [facility] Comment on above: Order Comment: [facility] has implemented the eGFR calculation approach that does not have a coefficient for race that conforms to the NKF-ASN Task Force Recommendations. Performed By: #### 4 [id number] ####[facility] [address] [place] [address] 19482 Huber Prado M.D. [id number] EGFR 16 mL/min/1.73 m2 Low >=60 [facility] Comment on above: Order Comment: [facility] has implemented the eGFR calculation approach that does not have a coefficient for race that conforms to the NKF-ASN Task Force Recommendations. Result Comment: Neema mated GFR was calculated using the 2020 CKD-EPI creatinine equation. Performed By: #### 4 [id number] ####[facility] [address] [place] [address] 39365 Huber Prado M.D. [id number] Glucose [Mass/Vol] 154 mg/dL High 65-99 [facility] Comment on above: Order Comment: [facility] has implemented the eGFR calculation approach that does not have a coefficient for race that conforms to the NKF-ASN Task Force Recommendations. Performed By: #### 4 6953 ####[facility] [address] [place], [place] [id number] Huber Prado M.D. [id number] HCO3 (Bld) [Moles/Vol] 34 mmol/L High 21-32 [facility] Comment on above: Order Comment: [facility] has implemented the eGFR calculation approach that does not have a coefficient for race that conforms to the NKF-ASN Task Force Recommendations. Performed By: #### 4 6953 ####[facility] [address] [place], [place] [id number] Huber Prado M.D. [id number] Potassium [Moles/Vol] 4.5 mmol/L Normal 3.5-5.1 [facility] Comment on above: Order Comment: [facility] has implemented the eGFR calculation approach that does not have a coefficient for race that conforms to the NKF-ASN Task Force Recommendations. Performed By: #### 4 6953 ####[facility] [address] [place], [place] [id number] Huber Prado M.D. [id number] Sodium [Moles/Vol] 151 mmol/L High 135-145 [facility] Comment on above: Order Comment: [facility] has implemented the eGFR calculation approach that does not have a coefficient for race that conforms to the NKF-ASN Task Force Recommendations. Performed By: #### 4 6953 ####[facility] [address] [place] [address] Huber Prado M.D. [id number] Urea nitrogen [Mass/Vol] 54 mg/dL High 8-25 [facility] Comment on above: Order Comment: [facility] has implemented the eGFR calculation approach that does not have a coefficient for race that conforms to the NKF-ASN Task Force Recommendations. Performed By: #### 4 6953 ####[facility] [address] [place], [place] [id number] Huber Prado M.D. [id number] Urea nitrogen/Creatinine [Mass ratio] 14.9 mg/mg Normal 10.0-20.0 [facility] Comment on above: Order Comment: [facility] has implemented the eGFR calculation approach that does not have a coefficient for race that conforms to the NKF-ASN Task Force Recommendations. Performed By: #### 4 6953 ####[facility] [address] [place], [place] [id number] Huber Prado M.D. [id number] Anion gap [Moles/Vol] 19 mmol/L Normal 10-20 [facility] Comment on above: Order Comment: [facility] has implemented the eGFR calculation approach that does not have a coefficient for race that conforms to the NKF-ASN Task Force Recommendations. Performed By: #### 4 6953 ####[facility] [address] [place], [place] [id number] Huber Prado M.D. [id number] Chloride [Moles/Vol] 103 mmol/L Normal 98-108 [facility] Comment on above: Order Comment: [facility] has implemented the eGFR calculation approach that does not have a coefficient for race that conforms to the NKF-ASN Task Force Recommendations. Performed By: #### 4 6953 ####[facility] [address] [place], [place] [id number] Huber Prado M.D. [id number] Creatinine [Mass/Vol] 3.29 mg/dL High 0.40-1.10 [facility] Comment on above: Order Comment: [facility] has implemented the eGFR calculation approach that does not have a coefficient for race that conforms to the NKF-ASN Task Force Recommendations. Performed By: #### 4 6953 ####[facility] [address] [place], [place] [address] Huber Prado M.D. [id number] EGFR 18 mL/min/1.73 m2 Low >=60 [facility] Comment on above: Order Comment: [facility] has implemented the eGFR calculation approach that does not have a coefficient for race that conforms to the NKF-ASN Task Force Recommendations. Result Comment: Neema mated GFR was calculated using the 2020 CKD-EPI creatinine equation. Performed By: #### 4 6953 ####[facility] [address] [place], [place] [id number] Huber Prado M.D. [id number] Glucose [Mass/Vol] 123 mg/dL High 65-99 [facility] Comment on above: Order Comment: [facility] has implemented the eGFR calculation approach that does not have a coefficient for race that conforms to the NKF-ASN Task Force Recommendations. Performed By: #### 4 6953 ####[facility] [address] [place], [place] [address] Huber Prado M.D. [id number] HCO3 (Bld) [Moles/Vol] 34 mmol/L High 21-32 [facility] Comment on above: Order Comment: [facility] has implemented the eGFR calculation approach that does not have a coefficient for race that conforms to the NKF-ASN Task Force Recommendations. Performed By: #### 4 6953 ####[facility] [address] [place], [place] [address] Huber Praod M.D. [id number] Potassium [Moles/Vol] 4.2 mmol/L Normal 3.5-5.1 [facility] Comment on above: Order Comment: [facility] has implemented the eGFR calculation approach that does not have a coefficient for race that conforms to the NKF-ASN Task Force Recommendations. Performed By: #### 4 6953 ####[facility] [address] [place] [address] 69459 Huber Prado M.D. [id number] Sodium [Moles/Vol] 152 mmol/L High 135-145 [facility] Comment on above: Order Comment: [facility] has implemented the eGFR calculation approach that does not have a coefficient for race that conforms to the NKF-ASN Task Force Recommendations. Performed By: #### 4 [id number] ####[facility] [address] [place] [address] 71152 Huber Prado M.D. [id number] Urea nitrogen [Mass/Vol] 53 mg/dL High 8-25 [facility] Comment on above: Order Comment: [facility] has implemented the eGFR calculation approach that does not have a coefficient for race that conforms to the NKF-ASN Task Force Recommendations. Performed By: #### 4 6953 ####[facility] [address] [place] [address] 86846 Huber Prado M.D. [id number] Urea nitrogen/Creatinine [Mass ratio] 16.1 mg/mg Normal 10.0-20.0 [facility] Comment on above: Order Comment: [facility] has implemented the eGFR calculation approach that does not have a coefficient for race that conforms to the NKF-ASN Task Force Recommendations. Performed By: #### 4 [id number] ####[facility] [address] [place] [address] 25789 Huber Prado M.D. [id number] CONSULTon 04-24-2024 CONSULT Normal [facility] CONSULT Normal [facility] ELECTROLYTES, URINEon 2023 CHLORIDE UR 39 mmol/L Normal [facility] Comment on above: Order Comment: No es tablished reference range. Performed By: #### 4 5532 ####[facility] [address] [place], [place] [address] Huber Prado M.D. [id number] POTASSIUM UR 40.8 mmol/L Normal [facility] Comment on above: Order Comment: No es tablished reference range. Performed By: #### 4 5532 ####[facility] [address] [place] [address] 86059 Huber Prado M.D. [id number] Sodium (U) [Moles/Vol] 30 mmol/L Normal [facility] Comment on above: Order Comment: No es tablished reference range. Performed By: #### 4 5532 ####[facility] [address] [place] [address] 94008 Huber Prado M.D. [id number] OSMOLALITY, URINEon 04-24-20 24 OSMOLALITY URINE 265 mOsm/kg Normal [facility] Comment on above: Order Comment: No es tablished reference range. Performed By: #### 4 6233 ####[facility] [address] [place] [address] 81468 Huber Prado M.D. [id number] VANCOMYCIN LEVEL, RANDOMon 0 04-24-2024 VANCOMYCIN RANDOM 30.6 mcg/mL Normal [facility] Comment on above: Order Comment: As of 05/2022 vancomycin dosing for [facility] inpatients will be done by Bayesian dosing software rather than off traditional trough values. Please contact the site specific inpatient pharmacy before making dose changes off of trough values alone for admitted patients.No established reference range. Performed By: #### 4 6651 ####[facility] [address] [place] [address] 56324 Huber Prado M.D. [id number] CREATININE, SERUMon 04-23-20 24 Creatinine [Mass/Vol] 1.62 mg/dL High 0.40-1.10 [facility] Comment on above: Order Comment: [facility] has implemented the eGFR calculation approach that does not have a coefficient for race that conforms to the NKF-ASN Task Force Recommendations. Performed By: #### 4 5336 ####[facility] [address] [place] [address] 58210 Huber Prado M.D. [id number] EGFR 43 mL/min/1.73 m2 Low >=60 [facility] Comment on above: Order Comment: [facility] has implemented the eGFR calculation approach that does not have a coefficient for race that conforms to the NKF-ASN Task Force Recommendations. Result Comment: Neema mated GFR was calculated using the 2020 CKD-EPI creatinine equation. Performed By: #### 4 5336 ####[facility] [address] [place] [address] 21941 Huber Prado M.D. [id number] VANCOMYCIN LEVEL, RANDOMon 0 04-23-2024 VANCOMYCIN RANDOM 36.5 mcg/mL Normal [facility] Comment on above: Order Comment: As of 05/2022 vancomycin dosing for [facility] inpatients will be done by Bayesian dosing software rather than off traditional trough values. Please contact the site specific inpatient pharmacy before making dose changes off of trough values alone for admitted patients.No established reference range. Performed By: #### 4 6651 ####[facility] [address] [place] [address] 21000 Huber Prado M.D. [id number] BASIC METABOLIC PANELon 08-2 Anion gap [Moles/Vol] 14 mmol/L Normal 10-20 [facility] Comment on above: Order Comment: [facility] has implemented the eGFR calculation approach that does not have a coefficient for race that conforms to the NKF-ASN Task Force Recommendations. Performed By: #### 4 6124 ####[facility] [address] [place] [address] 70549 Huber Prado M.D. [id number] Calcium [Mass/Vol] 9.3 mg/dL Normal 8.4-10.2 [facility] Comment on above: Order Comment: [facility] has implemented the eGFR calculation approach that does not have a coefficient for race that conforms to the NKF-ASN Task Force Recommendations. Performed By: #### 4 6124 ####[facility] [address] [place] [address] 74009 Huber Prado M.D. [id number] Chloride [Moles/Vol] 101 mmol/L Normal 98-108 [facility] Comment on above: Order Comment: [facility] has implemented the eGFR calculation approach that does not have a coefficient for race that conforms to the NKF-ASN Task Force Recommendations. Performed By: #### 4 6124 ####[facility] [address] [place] [address] 80573 Huber Prado M.D. [id number] Creatinine [Mass/Vol] 0.26 mg/dL Low 0.40-1.10 [facility] Comment on above: Order Comment: [facility] has implemented the eGFR calculation approach that does not have a coefficient for race that conforms to the NKF-ASN Task Force Recommendations. Performed By: #### 4 6124 ####[facility] [address] [place] [address] 63816 Huber Prado M.D. [id number] EGFR 148 mL/min/1.73 m2 Normal >=60 [facility] Comment on above: Order Comment: [facility] has implemented the eGFR calculation approach that does not have a coefficient for race that conforms to the NKF-ASN Task Force Recommendations. Result Comment: Neema mated GFR was calculated using the 2020 CKD-EPI creatinine equation. Performed By: #### 4 6124 ####[facility] [address] [place] [address] 28271 Huber Prado M.D. [id number] Glucose [Mass/Vol] 160 mg/dL High 65-99 [facility] Comment on above: Order Comment: [facility] has implemented the eGFR calculation approach that does not have a coefficient for race that conforms to the NKF-ASN Task Force Recommendations. Performed By: #### 4 6124 ####[facility] [address] [place] [address] 64197 Huber Prado M.D. [id number] HCO3 (Bld) [Moles/Vol] 36 mmol/L High 21-32 [facility] Comment on above: Order Comment: [facility] has implemented the eGFR calculation approach that does not have a coefficient for race that conforms to the NKF-ASN Task Force Recommendations. Performed By: #### 4 6124 ####[facility] [address] [place] [address] 43318 Huber Prado M.D. [id number] Potassium [Moles/Vol] 3.5 mmol/L Normal 3.5-5.1 [facility] Comment on above: Order Comment: [facility] has implemented the eGFR calculation approach that does not have a coefficient for race that conforms to the NKF-ASN Task Force Recommendations. Performed By: #### 4 6124 ####[facility] [address] [place] [address] 14987 Huber Prado M.D. [id number] Sodium [Moles/Vol] 147 mmol/L High 135-145 [facility] Comment on above: Order Comment: [facility] has implemented the eGFR calculation approach that does not have a coefficient for race that conforms to the NKF-ASN Task Force Recommendations. Performed By: #### 4 6124 ####[facility] [address] [place] [address] 79626 Huber Prado M.D. [id number] Urea nitrogen [Mass/Vol] 17 mg/dL Normal 8-25 [facility] Comment on above: Order Comment: [facility] has implemented the eGFR calculation approach that does not have a coefficient for race that conforms to the NKF-ASN Task Force Recommendations. Performed By: #### 4 6124 ####[facility] [address] [place] [address] 36629 Huber Prado M.D. [id number] Urea nitrogen/Creatinine [Mass ratio] 65.4 mg/mg High 10.0-20.0 [facility] Comment on above: Order Comment: [facility] has implemented the eGFR calculation approach that does not have a coefficient for race that conforms to the NKF-ASN Task Force Recommendations. Performed By: #### 4 6124 ####[facility] [address] [place] [address] Huber Prado M.D. [id number] CBC WITH AUTO DIFFERENTIALon 04-22-2024 AUTO NRBC 0.0 % Normal [facility] Comment on above: Performed By: #### L [id number] ####[facility] [address] [place] [address] Huber Prado M.D. [id number] AUTO NRBC ABS COUNT 0.00 K/mcL Normal 0.00-0.00 [facility] Comment on above: Performed By: #### L [id number] ####[facility] [address] [place] [address] Huber Prado M.D. [id number] BASOPHILS ABSOLUTE COUNT 0.09 K/mcL Normal 0.00-0.30 [facility] Comment on above: Performed By: #### L [id number] ####[facility] [address] [place] [address] Huber Prado M.D. [id number] Basophils/100 WBC (Bld) 1.1 % Normal [facility] Comment on above: Performed By: #### L [id number] ####[facility] [address] [place] [address] Huber Prado M.D. [id number] Eosinophils (Bld) [#/Vol] 0.17 10*3/uL Normal 0.00-0.50 [facility] Comment on above: Performed By: #### L [id number] ####[facility] [address] [place], [place] [id number] Huber Prado M.D. [id number] Eosinophils/100 WBC (Bld) 2.0 % Normal [facility] Comment on above: Performed By: #### L [id number] ####[facility] [address] [place] [address] Huber Prado M.D. [id number] Erythrocyte distribution width (RBC) [Ratio] 14.6 % Normal 11.6-14.8 [facility] Comment on above: Performed By: #### L [id number] ####[facility] [address] [place] [address] Huber Prado M.D. [id number] Hematocrit (Bld) [Volume fraction] 40.6 % Normal 36.0-46.0 [facility] Comment on above: Performed By: #### L [id number] ####[facility] [address] [place] [address] Huber Prado M.D. [id number] Hemoglobin (Bld) [Mass/Vol] 11.8 g/dL Low 12.0-16.0 [facility] Comment on above: Performed By: #### L [id number] ####[facility] [address] [place] [address] Huber Prado M.D. [id number] IG ABSOLUTE 0.05 K/mcL Normal 0.00-0.30 [facility] Comment on above: Performed By: #### L [id number] ####[facility] [address] [place] [address] Huber Prado M.D. [id number] IG PERCENT 0.60 % Normal [facility] Comment on above: Result Comment: The IG parameter is the percentage of metamyelocytes, myelocytes and promyelocytes. An immature granulocyte count (IG) of 1% or more suggests the possibility of infection, an IG count of 3% is very likely related to an infection. Performed By: #### L [id number] ####[facility] [address] [place] [address] Huber Prado M.D. [id number] Lymphocytes (Bld) [#/Vol] 1.94 10*3/uL Normal 0.90-4.00 [facility] Comment on above: Performed By: #### L [id number] ####[facility] [address] [place] [address] Huber Prado M.D. [id number] Lymphocytes/100 WBC (Bld) 22.7 % Normal [facility] Comment on above: Performed By: #### L [id number] ####[facility] [address] [place] [address] Huber Prado M.D. [id number] MCH (RBC) [Entitic mass] 29.1 pg Normal 26.0-34.0 [facility] Comment on above: Performed By: #### L [id number] ####[facility] [address] [place] [address] Huber Prado M.D. [id number] MCV (RBC) [Entitic vol] 100.0 fL Normal 80.0-100.0 [facility] Comment on above: Performed By: #### L [id number] ####[facility] [address] [place], [place] [id number] Huber Prado M.D. [id number] MEAN CORPUSCULAR HEMOGLOBIN CONC 29.1 g/dL Low 31.0-37.0 [facility] Comment on above: Performed By: #### L [id number] ####[facility] [address] [place], [place] [id number] Huber Prado M.D. [id number] Monocytes (Bld) [#/Vol] 0.46 10*3/uL Normal 0.30-0.90 [facility] Comment on above: Performed By: #### L [id number] ####[facility] [address] [place] [address] Huber Prado M.D. [id number] Monocytes/100 WBC (Bld) 5.4 % Normal [facility] Comment on above: Performed By: #### L [id number] ####[facility] [address] [place] [address] Huber Prado M.D. [id number] NEUTROPHILS ABSOLUTE COUNT 5.83 K/mcL Normal 1.70-7.00 [facility] Comment on above: Performed By: #### L [id number] ####[facility] [address] [place] [address] Huber Prado M.D. [id number] Neutrophils/100 WBC (Bld) 68.2 % Normal [facility] Comment on above: Performed By: #### Tasha [id number] ####[facility] [address] [place] [address] Huber Prado M.D. [id number] Platelet mean volume (Bld) [Entitic vol] 11.5 fL Normal 9.4-12.4 [facility] Comment on above: Performed By: #### L [id number] ####[facility] [address] [place], [place] [address]Nora Prado M.D. [id number] Platelets (Bld) [#/Vol] 158 10*3/uL Normal 150-400 [facility] Comment on above: Performed By: #### L [id number] ####[facility] [address] [place], [place] [id number] Huber Prado M.D. [id number] RBC (Bld) [#/Vol] 4.06 10*6/uL Normal 4.00-5.20 [facility] Comment on above: Performed By: #### L [id number] ####[facility] [address] [place] [address] 30280 Huber Prado M.D. [id number] WBC (Bld) [#/Vol] 8.54 10*3/uL Normal 4.50-11.00 [facility] Comment on above: Performed By: #### L [id number] ####[facility] [address] [place] [address] 38601 Huber Prado M.D. [id number] POTASSIUM LEVELon 04-22-2024 Potassium [Moles/Vol] 4.3 mmol/L Normal 3.5-5.1 [facility] Comment on above: Result Comment: Slig htly Hemolyzed Performed By: #### 4 [id number] ####[facility] [address] [place] [address] 54035 Huber Prado M.D. [id number] VANCOMYCIN LEVEL, RANDOMon 0 04-22-2024 VANCOMYCIN RANDOM 29.0 mcg/mL Normal [facility] Comment on above: Order Comment: As of 05/2022 vancomycin dosing for [facility] inpatients will be done by Bayesian dosing software rather than off traditional trough values. Please contact the site specific inpatient pharmacy before making dose changes off of trough values alone for admitted patients.No established reference range. Performed By: #### 4 [id number] ####[facility] [address] [place] [address] 52022 Huber Prado M.D. [id number] VANCOMYCIN RANDOM 58.4 mcg/mL Normal [facility] Comment on above: Order Comment: As of 05/2022 vancomycin dosing for [facility] inpatients will be done by Bayesian dosing software rather than off traditional trough values. Please contact the site specific inpatient pharmacy before making dose changes off of trough values alone for admitted patients.No established reference range. Performed By: #### 4 [id number] ####[facility] [address] [place] [address] 63272 Huber Prado M.D. [id number] BASIC METABOLIC PANELon 03-31 Anion gap [Moles/Vol] 16 mmol/L Normal 10-20 [facility] Comment on above: Order Comment: [facility] has implemented the eGFR calculation approach that does not have a coefficient for race that conforms to the NKF-ASN Task Force Recommendations. Performed By: #### 4 [id number] ####[facility] [address] [place] [address] 87527 Huebr Prado M.D. [id number] Calcium [Mass/Vol] 10.5 mg/dL High 8.4-10.2 [facility] Comment on above: Order Comment: [facility] has implemented the eGFR calculation approach that does not have a coefficient for race that conforms to the NKF-ASN Task Force Recommendations. Performed By: #### 4 [id number] ####[facility] [address] [place] [address] 91568 Huber Prado M.D. [id number] Chloride [Moles/Vol] 102 mmol/L Normal 98-108 [facility] Comment on above: Order Comment: [facility] has implemented the eGFR calculation approach that does not have a coefficient for race that conforms to the NKF-ASN Task Force Recommendations. Performed By: #### 4 [id number] ####[facility] [address] [place] [address] 34354 Huber Prado M.D. [id number] Creatinine [Mass/Vol] 0.34 mg/dL Low 0.40-1.10 [facility] Comment on above: Order Comment: [facility] has implemented the eGFR calculation approach that does not have a coefficient for race that conforms to the NKF-ASN Task Force Recommendations. Performed By: #### 4 [id number] ####[facility] [address] [place] [address] 92320 Huber Prado M.D. [id number] EGFR 139 mL/min/1.73 m2 Normal >=60 [facility] Comment on above: Order Comment: [facility] has implemented the eGFR calculation approach that does not have a coefficient for race that conforms to the NKF-ASN Task Force Recommendations. Result Comment: Neema mated GFR was calculated using the 2020 CKD-EPI creatinine equation. Performed By: #### 4 [id number] ####[facility] [address] [place], [place] [id number] Huber Prado M.D. [id number] Glucose [Mass/Vol] 142 mg/dL High 65-99 [facility] Comment on above: Order Comment: [facility] has implemented the eGFR calculation approach that does not have a coefficient for race that conforms to the NKF-ASN Task Force Recommendations. Performed By: #### 4 [id number] ####[facility] [address] [place], [place] [id number] Huber Prado M.D. [id number] HCO3 (Bld) [Moles/Vol] 38 mmol/L High 21-32 [facility] Comment on above: Order Comment: [facility] has implemented the eGFR calculation approach that does not have a coefficient for race that conforms to the NKF-ASN Task Force Recommendations. Performed By: #### 4 [id number] ####[facility] [address] [place] [address] 75034 Huber Prado M.D. [id number] Potassium [Moles/Vol] 3.7 mmol/L Normal 3.5-5.1 [facility] Comment on above: Order Comment: [facility] has implemented the eGFR calculation approach that does not have a coefficient for race that conforms to the NKF-ASN Task Force Recommendations. Performed By: #### 4 [id number] ####[facility] [address] [place] [address] 99705 Huber Prado M.D. [id number] Sodium [Moles/Vol] 152 mmol/L High 135-145 [facility] Comment on above: Order Comment: [facility] has implemented the eGFR calculation approach that does not have a coefficient for race that conforms to the NKF-ASN Task Force Recommendations. Performed By: #### 4 [id number] ####[facility] [address] [place] [address] 06163 Huber Prado M.D. [id number] Urea nitrogen [Mass/Vol] 15 mg/dL Normal 8-25 [facility] Comment on above: Order Comment: [facility] has implemented the eGFR calculation approach that does not have a coefficient for race that conforms to the NKF-ASN Task Force Recommendations. Performed By: #### 4 [id number] ####[facility] [address] [place] [address] 10472 Huber Prado M.D. [id number] Urea nitrogen/Creatinine [Mass ratio] 44.1 mg/mg High 10.0-20.0 [facility] Comment on above: Order Comment: [facility] has implemented the eGFR calculation approach that does not have a coefficient for race that conforms to the NKF-ASN Task Force Recommendations. Performed By: #### 4 [id number] ####[facility] [address] [place] [address] 93274 Huber Prado M.D. [id number] BLOOD CULTURE AEROBIC/ANAERO BICon 04-21-2024 BLOOD CULTURE AEROBIC/ANAEROBIC BLOOD CULTURE No Growth after 5 days [facility] Comment on above: Performed By: #### 4 [id number] ####[facility] [address] [place] [address] 07483 Huber Prado M.D. [id number] BLOOD CULTURE AEROBIC/ANAEROBIC BLOOD CULTURE No Growth after 5 days [facility] Comment on above: Performed By: #### 4 [id number] ####[facility] [address] [place] [address] 08944 Huber Praod M.D. [id number] CBC WITH AUTO DIFFERENTIALon 04-21-2024 AUTO NRBC 0.0 % [facility] Comment on above: Performed By: #### L [id number] ####[facility] [address] [place], [place] [id number] Huber Prado M.D. [id number] AUTO NRBC ABS COUNT 0.00 K/mcL Normal 0.00-0.00 [facility] Comment on above: Performed By: #### L [id number] ####[facility] [address] [place] [address] Huber Prado M.D. [id number] BASOPHILS ABSOLUTE COUNT 0.10 K/mcL Normal 0.00-0.30 [facility] Comment on above: Performed By: #### Tasha [id number] ####[facility] [address] [place] [address] Huber Prado M.D. [id number] Basophils/100 WBC (Bld) 0.9 % Normal [facility] Comment on above: Performed By: #### Tasha [id number] ####[facility] [address] [place] [address] Huber Prado M.D. [id number] Eosinophils (Bld) [#/Vol] 0.06 10*3/uL Normal 0.00-0.50 [facility] Comment on above: Performed By: #### L [id number] ####[facility] [address] [place] [address] Huber Prado M.D. [id number] Eosinophils/100 WBC (Bld) 0.5 % Normal [facility] Comment on above: Performed By: #### L [id number] ####[facility] [address] [place], [place] [id number] Huber Prado M.D. [id number] Erythrocyte distribution width (RBC) [Ratio] 14.3 % Normal 11.6-14.8 [facility] Comment on above: Performed By: #### L [id number] ####[facility] [address] [place] [address] Huber Prado M.D. [id number] Hematocrit (Bld) [Volume fraction] 45.8 % Normal 36.0-46.0 [facility] Comment on above: Performed By: #### L [id number] ####[facility] [address] [place], [place] [id number] Huber Prado M.D. [id number] Hemoglobin (Bld) [Mass/Vol] 14.5 g/dL Normal 12.0-16.0 [facility] Comment on above: Performed By: #### L [id number] ####[facility] [address] [place], [place] [address]Nora Prado M.D. [id number] IG ABSOLUTE 0.06 K/mcL Normal 0.00-0.30 [facility] Comment on above: Performed By: #### L [id number] ####[facility] [address] [place] [address] Huber Prado M.D. [id number] IG PERCENT 0.50 % Normal [facility] Comment on above: Result Comment: The IG parameter is the percentage of metamyelocytes, myelocytes and promyelocytes. An immature granulocyte count (IG) of 1% or more suggests the possibility of infection, an IG count of 3% is very likely related to an infection. Performed By: #### L [id number] ####[facility] [address] [place] [address] Huber Prado M.D. [id number] Lymphocytes (Bld) [#/Vol] 2.41 10*3/uL Normal 0.90-4.00 [facility] Comment on above: Performed By: #### L [id number] ####[facility] [address] [place], [place] [address]Nora Prado M.D. [id number] Lymphocytes/100 WBC (Bld) 20.5 % Normal [facility] Comment on above: Performed By: #### L [id number] ####[facility] [address] [place] [address] Huber Prado M.D. [id number] MCH (RBC) [Entitic mass] 30.7 pg Normal 26.0-34.0 [facility] Comment on above: Performed By: #### Tasha [id number] ####[facility] [address] [place] [address] Huber Prado M.D. [id number] MCV (RBC) [Entitic vol] 97.0 fL Normal 80.0-100.0 [facility] Comment on above: Performed By: #### Tasha [id number] ####[facility] [address] [place] [address] Huber Prado M.D. [id number] MEAN CORPUSCULAR HEMOGLOBIN CONC 31.7 g/dL Normal 31.0-37.0 [facility] Comment on above: Performed By: #### Tasha [id number] ####[facility] [address] [place] [address] Huber Prado M.D. [id number] Monocytes (Bld) [#/Vol] 0.87 10*3/uL Normal 0.30-0.90 [facility] Comment on above: Performed By: #### Tasha [id number] ####[facility] [address] [place] [address] Huber Prado M.D. [id number] Monocytes/100 WBC (Bld) 7.4 % Normal [facility] Comment on above: Performed By: #### L [id number] ####[facility] [address] [place] [address] Huber Prado M.D. [id number] NEUTROPHILS ABSOLUTE COUNT 8.26 K/mcL High 1.70-7.00 [facility] Comment on above: Performed By: #### L [id number] ####[facility] [address] [place] [address] 10175 Huber Prado M.D. [id number] Neutrophils/100 WBC (Bld) 70.2 % Normal [facility] Comment on above: Performed By: #### Tasha [id number] ####[facility] [address] [place] [address] 00230 Huber Prado M.D. [id number] Platelet mean volume (Bld) [Entitic vol] 11.2 fL Normal 9.4-12.4 [facility] Comment on above: Performed By: #### Tasha [id number] ####[facility] [address] [place] [address] 15693 Huber Prado M.D. [id number] Platelets (Bld) [#/Vol] 219 10*3/uL Normal 150-400 [facility] Comment on above: Performed By: #### Tasha [id number] ####[facility] [address] [place] [address] 78732 Huber Prado M.D. [id number] RBC (Bld) [#/Vol] 4.72 10*6/uL Normal 4.00-5.20 [facility] Comment on above: Performed By: #### Tasha [id number] ####[facility] [address] [place] [address] 76316 Huber Prado M.D. [id number] WBC (Bld) [#/Vol] 11.76 10*3/uL High 4.50-11.00 [facility] Comment on above: Performed By: #### Tasha [id number] ####[facility] [address] [place] [address] 58087 Huber Prado M.D. [id number] CT CHEST ABDOMEN PELVIS WITH IV CONTRAST ONLYon 04-21-2024 CT CHEST ABDOMEN PELVIS WITH IV CONTRAST ONLY Normal [facility] Comment on above: Order Comment: Injur y/Trauma or Illness?:Illness/OtherHow long have you had these symptoms (acute/chronic)?:AcuteReason for exam?:amsType of Exam?:InitialAdditional signs and symptoms?:ams CT HEAD OR BRAIN WITHOUT CON TRASTon 04-21-2024 CT HEAD OR BRAIN WITHOUT CONTRAST Normal [facility] Comment on above: Order Comment: Injur y/Trauma or Illness?:Illness/OtherHow long have you had these symptoms (acute/chronic)?:AcuteReason for exam?:AMSType of Exam?:InitialAdditional signs and symptoms?:AMS ED Prov Noteon 04-21-2024 ED Prov Note Normal [facility] H AND Max 04-21-2024 H AND P Normal [facility] HCG, SERUM, QUALITATIVEon BETA-HCG QUAL BLOOD Negative Normal Negative [facility] Comment on above: Order Comment: Negat ivan: The result is less than or equal to 5 mIU/mL of HCG. Performed By: #### 4 [id number] ####[facility] [address] [place], [place] [id number] Huber Prado M.D. [id number] HEPATIC FUNCTION PANELon Albumin [Mass/Vol] 4.6 g/dL Normal 3.2-5.2 [facility] Comment on above: Performed By: #### 4 [id number] ####[facility] [address] [place], [place] [address] Huber Prado M.D. [id number] ALP [Catalytic activity/Vol] 143 U/L High 40-140 [facility] Comment on above: Performed By: #### 4 [id number] ####[facility] [address] [place], [place] [address] Huber Prado M.D. [id number] ALT [Catalytic activity/Vol] 22 U/L Normal 0-35 U/L [facility] Comment on above: Performed By: #### 4 [id number] ####[facility] [address] [place], [place] [address] Huber Prado M.D. [id number] AST [Catalytic activity/Vol] 19 U/L Normal 0-35 U/L [facility] Comment on above: Performed By: #### 4 [id number] ####[facility] [address] [place], [place] [address] Huber Prado M.D. [id number] Bilirubin [Mass/Vol] 0.2 mg/dL Normal 0.0-1.3 [facility] Comment on above: Performed By: #### 4 [id number] ####[facility] [address] [place] [address] Huber Prado M.D. [id number] BILIRUBIN, DIRECT < Normal 0.0-0.4 [facility] Comment on above: Performed By: #### 4 [id number] ####[facility] [address] [place] [address] Huber Prado M.D. [id number] Protein [Mass/Vol] 7.9 g/dL Normal 6.0-8.0 [facility] Comment on above: Performed By: #### 4 [id number] ####[facility] [address] [place] [address] Huber Prado M.D. [id number] LACTIC ACID, PLASMAon 2023 LACTIC ACID, PLASMA 1.9 mmol/L Normal 0.6-2.0 [facility] Comment on above: Performed By: #### 4 [id number] ####[facility] [address] [place], [place] [address] Huber Prado M.D. [id number] LIPASEon 04-21-2024 Lipase [Catalytic activity/Vol] 21 U/L Normal 15-65 [facility] Comment on above: Performed By: #### 4 [id number] ####[facility] [address] [place], [place] [address] Huber Prado M.D. [id number] MAGNESIUM LEVELon 04-21-2024 Magnesium [Mass/Vol] 2.5 mg/dL High 1.6-2.4 [facility] Comment on above: Performed By: #### 4 [id number] ####[facility] [address] [place], [place] [address] Huber Prado M.D. [id number] POC [facility] LAB([facility]) - RALSon 0 04-21-2024 BASE EXCESS, VENOUS 11.7 High -2.0-2.0 [facility] Comment on above: Order Comment: [facility] has implemented the eGFR calculation approach that does not have a coefficient for race that conforms to the NKF-ASN Task Force Recommendations. Performed By: #### P [id number] ####[facility] [address] [place] [address] 85832 Huber Prado M.D. [id number] CALCIUM IONIZED 5.0 mg/dL Normal 4.5-5.3 [facility] Comment on above: Order Comment: [facility] has implemented the eGFR calculation approach that does not have a coefficient for race that conforms to the NKF-ASN Task Force Recommendations. Performed By: #### P [id number] ####[facility] [address] [place] [address] 17060 Huber Prado M.D. [id number] Chloride [Moles/Vol] 103 mmol/L Normal 98-108 [facility] Comment on above: Order Comment: [facility] has implemented the eGFR calculation approach that does not have a coefficient for race that conforms to the NKF-ASN Task Force Recommendations. Performed By: #### P [id number] ####[facility] [address] [place], [place] [address] Huber Prado M.D. [id number] CO2 [Moles/Vol] 41 mmol/L Off scale high 21-32 [facility] Comment on above: Order Comment: [facility] has implemented the eGFR calculation approach that does not have a coefficient for race that conforms to the NKF-ASN Task Force Recommendations. Performed By: #### P [id number] ####[facility] [address] [place] [address] 17063 Huber Prado M.D. [id number] Glucose [Mass/Vol] 146 mg/dL High 65-99 [facility] Comment on above: Order Comment: [facility] has implemented the eGFR calculation approach that does not have a coefficient for race that conforms to the NKF-ASN Task Force Recommendations. Performed By: #### P [id number] ####[facility] [address] [place] [address] 99999 Huber Prado M.D. [id number] Hematocrit (Bld) [Volume fraction] 47 % High 36-46 [facility] Comment on above: Order Comment: [facility] has implemented the eGFR calculation approach that does not have a coefficient for race that conforms to the NKF-ASN Task Force Recommendations. Performed By: #### P [id number] ####[facility] [address] [place] [address] 68670 Huber Prado M.D. [id number] HEMOGLOBIN, CALCULATED 16.1 g/dL High 12.0-16.0 [facility] Comment on above: Order Comment: [facility] has implemented the eGFR calculation approach that does not have a coefficient for race that conforms to the NKF-ASN Task Force Recommendations. Performed By: #### P [id number] ####[facility] [address] [place] [address] 34127 Huber Prado M.D. [id number] Oxygen saturation in Blood 89.3 % High 40.0-70.0 [facility] Comment on above: Order Comment: [facility] has implemented the eGFR calculation approach that does not have a coefficient for race that conforms to the NKF-ASN Task Force Recommendations. Performed By: #### P [id number] ####[facility] [address] [place] [address] 91499 Huber Prado M.D. [id number] PCO2 VENOUS 62.7 mm Hg High 41.0-51.0 [facility] Comment on above: Order Comment: [facility] has implemented the eGFR calculation approach that does not have a coefficient for race that conforms to the NKF-ASN Task Force Recommendations. Performed By: #### P [id number] ####[facility] [address] [place] [address] Huber Prado M.D. [id number] PH VENOUS 7.41 Normal 7.32-7.42 [facility] Comment on above: Order Comment: [facility] has implemented the eGFR calculation approach that does not have a coefficient for race that conforms to the NKF-ASN Task Force Recommendations. Performed By: #### P [id number] ####[facility] [address] [place] [address] Huber Prado M.D. [id number] PO2 VENOUS 59 mm Hg High 25-40 [facility] Comment on above: Order Comment: [facility] has implemented the eGFR calculation approach that does not have a coefficient for race that conforms to the NKF-ASN Task Force Recommendations. Performed By: #### P [id number] ####[facility] [address] [place], [place] [address] Huber Prado M.D. [id number] POC CREATININE (EPOC) < Low 0.40-1.10 [facility] Comment on above: Order Comment: [facility] has implemented the eGFR calculation approach that does not have a coefficient for race that conforms to the NKF-ASN Task Force Recommendations. Performed By: #### P [id number] ####[facility] [address] [place], [place] [address] Huber Prado M.D. [id number] POC GFR Normal [facility] Comment on above: Order Comment: [facility] has implemented the eGFR calculation approach that does not have a coefficient for race that conforms to the NKF-ASN Task Force Recommendations. Result Comment: Neema mated GFR was calculated using the 2020 CKD-EPI creatinine equation. Performed By: #### P [id number] ####[facility] [address] [place] [address] Huber Prado M.D. [id number] POC LACTATE 2.1 mmol/L High 0.6-2.0 [facility] Comment on above: Order Comment: [facility] has implemented the eGFR calculation approach that does not have a coefficient for race that conforms to the NKF-ASN Task Force Recommendations. Performed By: #### P [id number] ####[facility] [address] [place] [address] Huber Prado M.D. [id number] Potassium [Moles/Vol] 3.6 mmol/L Normal 3.5-5.1 [facility] Comment on above: Order Comment: [facility] has implemented the eGFR calculation approach that does not have a coefficient for race that conforms to the NKF-ASN Task Force Recommendations. Performed By: #### P [id number] ####[facility] [address] [place], [place] [id number] Huber Prado M.D. [id number] Sodium [Moles/Vol] 153 mmol/L High 135-145 [facility] Comment on above: Order Comment: [facility] has implemented the eGFR calculation approach that does not have a coefficient for race that conforms to the NKF-ASN Task Force Recommendations. Performed By: #### P [id number] ####[facility] [address] [place], [place] [id number] Huber Prado M.D. [id number] Urea nitrogen [Mass/Vol] 18 mg/dL Normal 8-25 [facility] Comment on above: Order Comment: [facility] has implemented the eGFR calculation approach that does not have a coefficient for race that conforms to the NKF-ASN Task Force Recommendations. Performed By: #### P [id number] ####[facility] [address] [place] [address] Huber Prado M.D. [id number] T4, FREEon 04-21-2024 Free T4 [Mass/Vol] 0.8 ng/dL Normal 0.7-1.7 [facility] Comment on above: Performed By: #### [id number] ####[facility] [address] [place] [address] Huber Prado M.D. [id number] TSH WITH REFLEX FREE T4on TSH Qn 4.48 m[IU]/L High 0.27-4.20 [facility] Comment on above: Performed By: #### 4 [id number] ####[facility] [address] [place] [address] Huber Prado M.D. [id number] URINALYSISon 04-21-2024 AMORPHOUS CRYSTALS Few Abnormal None Seen , Rare [facility] Comment on above: Order Comment: Micro scopic examination is performed on all urinalysis samples and only positive findings are reported. The test for blood on the chemical analytic portion of urinalysis may also be positive due to hemoglobinuria and myoglobinuria and if red blood cells are present they are quantified by microscopic examination. Performed By: #### 4 [id number] ####[facility] [address] [place], [place] [id number] Huber Prado M.D. [id number] BACTERIA, URINE Many Abnormal None Seen [facility] Comment on above: Order Comment: Micro scopic examination is performed on all urinalysis samples and only positive findings are reported. The test for blood on the chemical analytic portion of urinalysis may also be positive due to hemoglobinuria and myoglobinuria and if red blood cells are present they are quantified by microscopic examination. Performed By: #### [id number] ####[facility] [address] [place], [place] [id number] Huber Prado M.D. [id number] BILIRUBIN, URINE Negative Normal Negative [facility] Comment on above: Order Comment: Micro scopic examination is performed on all urinalysis samples and only positive findings are reported. The test for blood on the chemical analytic portion of urinalysis may also be positive due to hemoglobinuria and myoglobinuria and if red blood cells are present they are quantified by microscopic examination. Performed By: #### 4 [id number] ####[facility] [address] [place] [address] Huber Prado M.D. [id number] BLOOD, URINE Negative Normal Negative [facility] Comment on above: Order Comment: Micro scopic examination is performed on all urinalysis samples and only positive findings are reported. The test for blood on the chemical analytic portion of urinalysis may also be positive due to hemoglobinuria and myoglobinuria and if red blood cells are present they are quantified by microscopic examination. Performed By: #### 4 [id number] ####[facility] [address] [place] [address] Huber Prado M.D. [id number] CALCIUM OXALATE CRYSTALS Few Abnormal None Seen [facility] Comment on above: Order Comment: Micro scopic examination is performed on all urinalysis samples and only positive findings are reported. The test for blood on the chemical analytic portion of urinalysis may also be positive due to hemoglobinuria and myoglobinuria and if red blood cells are present they are quantified by microscopic examination. Performed By: #### 4 [id number] ####[facility] [address] [place] [address] Huber Prado M.D. [id number] Clarity (U) Cloudy Abnormal Clear [facility] Comment on above: Order Comment: Micro scopic examination is performed on all urinalysis samples and only positive findings are reported. The test for blood on the chemical analytic portion of urinalysis may also be positive due to hemoglobinuria and myoglobinuria and if red blood cells are present they are quantified by microscopic examination. Performed By: #### 4 [id number] ####[facility] [address] [place], [place] [id number] Huber Prado M.D. [id number] Color (U) Yellow Normal Colorless, Yellow [facility] Comment on above: Order Comment: Micro scopic examination is performed on all urinalysis samples and only positive findings are reported. The test for blood on the chemical analytic portion of urinalysis may also be positive due to hemoglobinuria and myoglobinuria and if red blood cells are present they are quantified by microscopic examination. Performed By: #### 4 [id number] ####[facility] [address] [place] [address] Huber Prado M.D. [id number] Glucose Ql (U) Negative Normal Negative [facility] Comment on above: Order Comment: Micro scopic examination is performed on all urinalysis samples and only positive findings are reported. The test for blood on the chemical analytic portion of urinalysis may also be positive due to hemoglobinuria and myoglobinuria and if red blood cells are present they are quantified by microscopic examination. Performed By: #### 4 [id number] ####[facility] [address] [place] [address] Huber Prado M.D. [id number] Ketones Ql (U) Negative Normal Negative [facility] Comment on above: Order Comment: Micro scopic examination is performed on all urinalysis samples and only positive findings are reported. The test for blood on the chemical analytic portion of urinalysis may also be positive due to hemoglobinuria and myoglobinuria and if red blood cells are present they are quantified by microscopic examination. Performed By: #### 4 [id number] ####[facility] [address] [place] [address] Huber Prado M.D. [id number] Leukocyte esterase Test strip Ql (U) Large Abnormal Negative [facility] Comment on above: Order Comment: Micro scopic examination is performed on all urinalysis samples and only positive findings are reported. The test for blood on the chemical analytic portion of urinalysis may also be positive due to hemoglobinuria and myoglobinuria and if red blood cells are present they are quantified by microscopic examination. Performed By: #### 4 [id number] ####[facility] [address] [place], [place] [address] Huber Prado M.D. [id number] MUCUS, URINE Few Abnormal None Seen, Rare [facility] Comment on above: Order Comment: Micro scopic examination is performed on all urinalysis samples and only positive findings are reported. The test for blood on the chemical analytic portion of urinalysis may also be positive due to hemoglobinuria and myoglobinuria and if red blood cells are present they are quantified by microscopic examination. Performed By: #### 4 [id number] ####[facility] [address] [place] [address] Huber Prado M.D. [id number] NITRITE, URINE Negative Normal Negative [facility] Comment on above: Order Comment: Micro scopic examination is performed on all urinalysis samples and only positive findings are reported. The test for blood on the chemical analytic portion of urinalysis may also be positive due to hemoglobinuria and myoglobinuria and if red blood cells are present they are quantified by microscopic examination. Performed By: #### 4 [id number] ####[facility] [address] [place], [place] [address] Huber Prado M.D. [id number] pH (U) 7.5 [pH] High 5.0-7.0 [facility] Comment on above: Order Comment: Micro scopic examination is performed on all urinalysis samples and only positive findings are reported. The test for blood on the chemical analytic portion of urinalysis may also be positive due to hemoglobinuria and myoglobinuria and if red blood cells are present they are quantified by microscopic examination. Performed By: #### 4 [id number] ####[facility] [address] [place], [place] [address] Huber Prado M.D. [id number] Protein (U) [Mass/Vol] 30 mg/dL Abnormal Negative [facility] Comment on above: Order Comment: Micro [...] ammonium compounds. Performed By: #### 4 [id number] ####[facility] [address] [place] [address] Huber Prado M.D. [id number] RBC LM.HPF (Urine sed) [#/Area] 29 /[HPF] High 0-3 [facility] Comment on above: Order Comment: Micro scopic examination is performed on all urinalysis samples and only positive findings are reported. The test for blood on the chemical analytic portion of urinalysis may also be positive due to hemoglobinuria and myoglobinuria and if red blood cells are present they are quantified by microscopic examination. Performed By: #### 4 [id number] ####[facility] [address] [place], [place] [address] Huber Prado M.D. [id number] Specific gravity (U) [Rel density] 1.025 Normal 1.005-1.025 [facility] Comment on above: Order Comment: Micro scopic examination is performed on all urinalysis samples and only positive findings are reported. The test for blood on the chemical analytic portion of urinalysis may also be positive due to hemoglobinuria and myoglobinuria and if red blood cells are present they are quantified by microscopic examination. Performed By: #### 4 [id number] ####[facility] [address] [place], [place] [address] Huber Prado M.D. [id number] SQUAMOUS EPITHELIAL 3 /hpf Normal 0-4 [facility] Comment on above: Order Comment: Micro scopic examination is performed on all urinalysis samples and only positive findings are reported. The test for blood on the chemical analytic portion of urinalysis may also be positive due to hemoglobinuria and myoglobinuria and if red blood cells are present they are quantified by microscopic examination. Performed By: #### 4 [id number] ####[facility] [address] [place] [address] Huber Prado M.D. [id number] TRIPLEPHOSPHATE CRYSTALS Few Abnormal None Seen [facility] Comment on above: Order Comment: Micro scopic examination is performed on all urinalysis samples and only positive findings are reported. The test for blood on the chemical analytic portion of urinalysis may also be positive due to hemoglobinuria and myoglobinuria and if red blood cells are present they are quantified by microscopic examination. Performed By: #### 4 [id number] ####[facility] [address] [place] [address] Huber Prado M.D. [id number] UROBILINOGEN, URINE <2.0 Normal <2.0 [facility] Comment on above: Order Comment: Micro scopic examination is performed on all urinalysis samples and only positive findings are reported. The test for blood on the chemical analytic portion of urinalysis may also be positive due to hemoglobinuria and myoglobinuria and if red blood cells are present they are quantified by microscopic examination. Performed By: #### 4 [id number] ####[facility] [address] [place] [address] Huber Prado M.D. [id number] WBC LM.HPF (Urine sed) [#/Area] 71 /[HPF] High 0-5 [facility] Comment on above: Order Comment: Micro scopic examination is performed on all urinalysis samples and only positive findings are reported. The test for blood on the chemical analytic portion of urinalysis may also be positive due to hemoglobinuria and myoglobinuria and if red blood cells are present they are quantified by microscopic examination. Performed By: #### 4 [id number] ####[facility] [address] [place] [address] Huber Prado M.D. [id number] URINE AEROBIC CULTUREon 03-31 URINE AEROBIC CULTURE Abnormal [facility] Comment on above: Performed By: #### [id number] ####[facility] [address] [place], [place] [address] Huber Prado M.D. [id number] Bacteria identified Cx Nom ( Bld)on 07-21-2022 Interpretation and review of laboratory results Normal [facility] Interpretation and review of laboratory results Normal [facility] Blood Culture #1on 2 Bacteria identified Cx [facility]Bld) [facility] Bacteria identified Cx Nom (Bld) [facility] Anaer cx Nom (Unsp spec)Ordered By: Yeny Paulino on 07-20-2022 [facility] CSF Anaerobic CultureOrdered By: Yeny Paulino on 07-20-2022 Bacteria identified Anaer cx Nom (Unsp spec) No Anaerobic Growth at 5 Days [facility] Tissue Anaerobic Cultureon 1 09-19-2021 Bacteria identified Anaer cx Nom (Tiss) No Anaerobic Growth at 5 Days [facility] Wound Anaerobic Cultureon Bacteria identified Anaer cx Nom (Wound) No Anaerobic Growth at 5 Days [facility] Basic metabolic 1998 panelon 07-19-2022 Anion gap [Moles/Vol] 15 mmol/L 10 - 2 0 mmol/L [facility] Chloride [Moles/Vol] 102 mmol/L 98 - 10 8 mmol/L [facility] Creatinine [Mass/Vol] 0.34 mg/dL Low 0.40 - 1.10 mg/dL [facility] GFR/1.73 sq M.predicted CKD-EPI (S/P/Bld) [Vol rate/Area] 140 - PINF [facility] Comment on above: Estimated GFR was ca lculated using the 2020 CKD-EPI creatinine equation. Glucose [Mass/Vol] 139 mg/dL High 65 - 99 mg/dL [facility] HCO3 [Moles/Vol] 27 mmol/L 21 - 32 mmol/L [facility] Interpretation and review of laboratory results Abnormal [facility] Potassium [Moles/Vol] 3.9 mmol/L 3.5 - 5.1 mmol/L [facility] Sodium [Moles/Vol] 140 mmol/L 135 - 145 mmol/L [facility] Urea nitrogen [Mass/Vol] 10 mg/dL 8 - 25 mg/dL [facility] Urea nitrogen/Creatinine [Mass ratio] 29.4 mg/mg High 10.0 - 20.0 [facility] has implemented the eGFR calculation approach that does not have a coefficient for race that conforms to the NKF-ASN Task Force Recommendations. [facility] CSF Aerobic Culture (Shunt o r Drain Only)Ordered By: Shanthi Lino on 07-18-2022 Bacteria identified Cx Nom (CSF) No Growth After 72 Hours [facility] Microscopic observation Gram stain Nom (CSF) No Organisms Seen [facility] Microscopic observation Gram stain Nom (CSF) Many RBC [facility] Microscopic observation Gram stain Nom (CSF) No WBC Seen [facility] Wound Aerobic Cultureon 06-30 Bacteria identified Aer cx Nom (Wound) Rare growth Pseudomonas aeruginosa Abnormal [facility] Bacteria identified Aer cx Nom (Wound) Few Growth (4-10 colonies per plate) Streptococcus agalactiae (Group B) Abnormal [facility] Comment on above: Group B Streptococci are susceptible to ampicillin, penicillin, and cefazolin but may be clindamycin resistant. If susceptibility testing is necessary, please notify the Microbiology laboratory within 72 hours. Interpretation and review of laboratory results Abnormal [facility] Microscopic observation Gram stain Nom (Wound) Few WBC [facility] Microscopic observation Gram stain Nom (Wound) Many RBC [facility] Microscopic observation Gram stain Nom (Wound) No Organisms Seen [facility] Basic metabolic 1998 panelOr dered By: Daniel Spear on 07-17-2022 Anion gap [Moles/Vol] 11 mmol/L 10 - 2 0 mmol/L [facility] Chloride [Moles/Vol] 111 mmol/L High 98 - 10 8 mmol/L [facility] Creatinine [Mass/Vol] 0.25 mg/dL Low 0.40 - 1.10 mg/dL [facility] GFR/1.73 sq M.predicted CKD-EPI (S/P/Bld) [Vol rate/Area] 151 - PINF [facility] Comment on above: Estimated GFR was ca lculated using the 2020 CKD-EPI creatinine equation. Glucose [Mass/Vol] 90 mg/dL 65 - 99 mg/dL [facility] HCO3 [Moles/Vol] 27 mmol/L 21 - 32 mmol/L [facility] Interpretation and review of laboratory results Abnormal [facility] Potassium [Moles/Vol] 2.9 mmol/L Low 3.5 - 5.1 mmol/L [facility] Sodium [Moles/Vol] 146 mmol/L High 135 - 145 mmol/L [facility] Urea nitrogen [Mass/Vol] 3 mg/dL Low 8 - 25 mg/dL [facility] Urea nitrogen/Creatinine [Mass ratio] 12.0 mg/mg 10.0 - 20.0 [facility] has implemented the eGFR calculation approach that does not have a coefficient for race that conforms to the NKF-ASN Task Force Recommendations. [facility] CBC panel Auto (Bld)on 07-17 Erythrocyte distribution width (RBC) [Entitic vol] 12.6 % 11.6 - 14.8 % [facility] Hematocrit (Bld) [Volume fraction] 30.3 % Low 36.0 - 46.0 % [facility] Hemoglobin (Bld) [Mass/Vol] 9.7 g/dL Low 12.0 - 16.0 g/dL [facility] Interpretation and review of laboratory results Abnormal [facility] MCH (RBC) [Entitic mass] 30.3 pg 26.0 - 34.0 pg [facility] MCHC (RBC) [Mass/Vol] 32.0 g/dL 31.0 - 37.0 g/dL [facility] MCV (RBC) [Entitic vol] 94.7 fL 80.0 - 100.0 fL [facility] Nucleated RBC (Bld) [#/Vol] 0.00 10*3/uL [facility] Nucleated RBC/100 WBC (Bld) [Ratio] 0.0 % [facility] Platelet mean volume (Bld) [Entitic vol] 11.4 fL 9.4 - 12.4 fL [facility] Platelets (Bld) [#/Vol] 193 10*3/uL [facility] RBC (Bld) [#/Vol] 3.20 10*6/uL Low [facility] eah WBC (Bld) [#/Vol] 9.59 10*3/uL [facility] (Bld) [Mass/Vol]on 09-16-2021 Glucose [Mass/Vol] 97 mg/dL 65 - 99 mg/dL [facility] Interpretation and review of laboratory results Normal [facility] Glucose [Mass/Vol] 94 mg/dL 65 - 99 mg/dL [facility] Interpretation and review of laboratory results Normal [facility] Glucose [Mass/Vol] 97 mg/dL 65 - 99 mg/dL [facility] Interpretation and review of laboratory results Normal [facility] Magnesium Levelon 07-17-2022 Magnesium [Mass/Vol] 1.9 mg/dL 1.6 - 2 .4 mg/dL [facility] Magnesium [Mass/Vol]on 07-17 Interpretation and review of laboratory results Normal [facility] Tissue Aerobic CultureOrdere d By: Jagruti Faulkner on 07-17-2022 Bacteria identified Aer cx Nom (Tiss) Rare growth Streptococcus agalactiae (Group B) Abnormal [facility] Comment on above: Group B Streptococci are susceptible to ampicillin, penicillin, and cefazolin but may be clindamycin resistant. If susceptibility testing is necessary, please notify the Microbiology laboratory within 72 hours. Interpretation and review of laboratory results Abnormal [facility] Microscopic observation Gram stain Nom (Tiss) Few WBC [facility] Microscopic observation Gram stain Nom (Tiss) No Organisms Seen [facility] Basic metabolic 1998 panelon 07-16-2022 Anion gap [Moles/Vol] 11 mmol/L 10 - 2 0 mmol/L [facility] Chloride [Moles/Vol] 108 mmol/L 98 - 10 8 mmol/L [facility] Creatinine [Mass/Vol] 0.34 mg/dL Low 0.40 - 1.10 mg/dL [facility] GFR/1.73 sq M.predicted CKD-EPI (S/P/Bld) [Vol rate/Area] 140 - PINF [facility] Comment on above: Estimated GFR was ca lculated using the 2020 CKD-EPI creatinine equation. Glucose [Mass/Vol] 88 mg/dL 65 - 99 mg/dL [facility] HCO3 [Moles/Vol] 26 mmol/L 21 - 32 mmol/L [facility] Interpretation and review of laboratory results Abnormal [facility] Potassium [Moles/Vol] 3.4 mmol/L Low 3.5 - 5.1 mmol/L [facility] Sodium [Moles/Vol] 142 mmol/L 135 - 145 mmol/L [facility] Urea nitrogen [Mass/Vol] 8 mg/dL 8 - 25 mg/dL [facility] Urea nitrogen/Creatinine [Mass ratio] 23.5 mg/mg High 10.0 - 20.0 [facility] has implemented the eGFR calculation approach that does not have a coefficient for race that conforms to the NKF-ASN Task Force Recommendations. [facility] CBC panel Auto (Bld)on 07-16 Erythrocyte distribution width (RBC) [Entitic vol] 12.7 % 11.6 - 14.8 % [facility] Hematocrit (Bld) [Volume fraction] 32.4 % Low 36.0 - 46.0 % [facility] Hemoglobin (Bld) [Mass/Vol] 10.3 g/dL Low 12.0 - 16.0 g/dL [facility] Comment on above: Repeated verified Interpretation and review of laboratory results Abnormal [facility] MCH (RBC) [Entitic mass] 30.6 pg 26.0 - 34.0 pg [facility] MCHC (RBC) [Mass/Vol] 31.8 g/dL 31.0 - 37.0 g/dL [facility] MCV (RBC) [Entitic vol] 96.1 fL 80.0 - 100.0 fL [facility] Nucleated RBC (Bld) [#/Vol] 0.00 10*3/uL [facility] Nucleated RBC/100 WBC (Bld) [Ratio] 0.0 % [facility] Platelet mean volume (Bld) [Entitic vol] 11.3 fL 9.4 - 12.4 fL [facility] Platelets (Bld) [#/Vol] 190 10*3/uL [facility] RBC (Bld) [#/Vol] 3.37 10*6/uL Low [facility]alth WBC (Bld) [#/Vol] 10.14 10*3/uL [facility] CT Abdomen Pelvis With IV Co [...] extending into the iliac bones as described. [employer] Workstation ID: [id number] [facility] EXAMINATION: CT ABDOMEN PELVIS WITH IV CONTRAST [...] 75 mL Isovue-370 IV. FINDINGS: There is ojwgaglu-up-jxwhgm scoliosis with the posterior spinal rods involving [...] the comparison study and there is a gmkb-yg-jhsltcmk amount of air in the abdominal wall [...] apparent soft tissue (more content not included)... [facility] [place], Fernando Jefferson MD - 07/16/2022 EXAMINATION: CT ABDOMEN PELVIS [...] 75 mL Isovue-370 IV. FINDINGS: There is scbpaibe-wh-hvvnca scoliosis with the posterior spinal rods involving [...] the comparison study and there is a nfvm-ez-coovxyim amount of air in the abdominal wall [...] tuberosity and ad (more content not included)... [facility] Radiology Study observation (narrative) [facility] CT Abdomen Pelvis With IV Co ntrast OnlyOrdered By: Fernando Zuleta on 07-16-2022 [facility] Work Phone: EKGon 07-16-2022 [facility] Glucose (Bld) [Mass/Vol]on 1 09-15-2021 Glucose [Mass/Vol] 91 mg/dL 65 - 99 mg/dL [facility] Interpretation and review of laboratory results Normal [facility] Glucose [Mass/Vol] 84 mg/dL 65 - 99 mg/dL [facility] Interpretation and review of laboratory results Normal [facility] Glucose [Mass/Vol] 83 mg/dL 65 - 99 mg/dL [facility] Interpretation and review of laboratory results Normal [facility] Glucose [Mass/Vol] 81 mg/dL 65 - 99 mg/dL [facility] Interpretation and review of laboratory results Normal [facility] Glucose [Mass/Vol] 95 mg/dL 65 - 99 mg/dL [facility] Interpretation and review of laboratory results Normal [facility] Magnesium Levelon 07-16-2022 Magnesium [Mass/Vol] 2.1 mg/dL 1.6 - 2 .4 mg/dL [facility] Magnesium [Mass/Vol]on 07-16 Interpretation and review of laboratory results Normal [facility] Potassium Levelon 07-16-2022 Potassium [Moles/Vol] 3.4 mmol/L Low 3.5 - 5.1 mmol/L [facility] Potassium [Moles/Vol]on 06-30 Interpretation and review of laboratory results Abnormal [facility] XR Chest 1 Viewon 07-16-2022 1. New right IJ central line tip projecting over the distal SVC. No pneumothorax. 2. No gross evidence of acute cardiopulmonary disease. Workstation ID: [id number] GetM[employer] EXAMINATION: XR CHEST PA/AP, 07/16/2022 HISTORY: R [...] the right hemithorax, which appears grossly clear. Werner Bhakta MD - 07/16/2022 EXAMINATION: XR CHEST PA/AP, [...] of acute cardiopulmonary disease. Workstation ID: [id number] [facility] Radiology Study observation (narrative) [facility] XR Chest 1 ViewOrdered By: Jessica Boucher on 07-16-2022 [facility] Work Phone: APTT Heparin Coverageon 06-30 aPTT Coag (Bld) [Time] 27 s [facility] Interpretation and review of laboratory results Normal [facility] Therapeutic range fo r APTT's is 68 - 104 seconds [facility] Basic metabolic 2000 panelon 07-15-2022 Anion gap [Moles/Vol] 16 mmol/L 10 - 2 0 mmol/L [facility] Calcium [Mass/Vol] 9.7 mg/dL 8.4 - 10. 2 mg/dL [facility] Chloride [Moles/Vol] 105 mmol/L 98 - 10 8 mmol/L [facility] Creatinine [Mass/Vol] 0.29 mg/dL Low 0.40 - 1.10 mg/dL [facility] GFR/1.73 sq M.predicted CKD-EPI (S/P/Bld) [Vol rate/Area] 146 - PINF [facility] Comment on above: Estimated GFR was ca lculated using the 2020 CKD-EPI creatinine equation. Glucose [Mass/Vol] 100 mg/dL High 65 - 99 mg/dL [facility] [Moles/Vol] 21 mmol/L 21 - 32 mmol/L [facility] Interpretation and review of laboratory results Abnormal [facility] Potassium [Moles/Vol] 4.2 mmol/L 3.5 - 5.1 mmol/L [facility] Sodium [Moles/Vol] 138 mmol/L 135 - 145 mmol/L [facility] Urea nitrogen [Mass/Vol] 14 mg/dL 8 - 25 mg/dL [facility] Urea nitrogen/Creatinine [Mass ratio] 48.3 mg/mg High 10.0 - 20.0 [facility] has implemented the eGFR calculation approach that does not have a coefficient for race that conforms to the NKF-ASN Task Force Recommendations. [facility] Blood type and Indirect anti body screen panel (Bld)on 07-15-2022 ABO and Rh group Nom (Bld) Blood group A Rh(D) positive [facility] Blood group antibody screen Ql Negative [facility] Specimen Expires 07/18/2022 23:59 EST [facility] CBC panel Auto (Bld)on 07-15 Erythrocyte distribution width (RBC) [Entitic vol] 12.5 % 11.6 - 14.8 % [facility] Hematocrit (Bld) [Volume fraction] 47.2 % High 36.0 - 46.0 % [facility] Hemoglobin (Bld) [Mass/Vol] 14.3 g/dL 12.0 - 16.0 g/dL [facility] Interpretation and review of laboratory results Abnormal [facility] MCH (RBC) [Entitic mass] 30.4 pg 26.0 - 34.0 pg [facility] MCHC (RBC) [Mass/Vol] 30.3 g/dL Low 31.0 - 37.0 g/dL [facility] MCV (RBC) [Entitic vol] 100.2 fL High 80.0 - 100.0 fL [facility] Nucleated RBC (Bld) [#/Vol] 0.00 10*3/uL [facility] Nucleated RBC/100 WBC (Bld) [Ratio] 0.0 % [facility] Platelet mean volume (Bld) [Entitic vol] 10.5 fL 9.4 - 12.4 fL [facility] Platelets (Bld) [#/Vol] 278 10*3/uL [facility] RBC (Bld) [#/Vol] 4.71 10*6/uL [facility] ealth WBC (Bld) [#/Vol] 12.17 10*3/uL [facility] CRP [Mass/Vol]on 07-15-2022 Interpretation and review of laboratory results Abnormal [facility] CRP, Inflammationon 07-15-20 CRP [Mass/Vol] 26.3 mg/L High 0.0 - 10.0 mg/L [facility] ECG 12 Leadon 07-15-2022 Atrial Rate 98 BPM [facility] P [place] 2 degrees [facility] P-R Interval 130 ms [facility] Q-T Interval 352 ms [facility] QRS Duration 72 ms [facility] QTC Calculation (Bezet) 449 ms [facility] R [place] 88 degrees [facility] T [place] 26 degrees [facility] Ventricular Rate 98 BPM [facility] Normal sinus rhythm Normal ECG Confirmed by MEGHAN BRISCOE DO ([id number]) on 07/15/2022 4:00:43 PM [facility] ESR Westergren method (Bld) [Velocity]on 07-15-2022 ESR (Bld) [Velocity] 81 mm/h [facility] Interpretation and review of laboratory results Abnormal [facility] Glucose (Bld) [Mass/Vol]on 09-14-2021 Glucose [Mass/Vol] 80 mg/dL 65 - 99 mg/dL [facility] Interpretation and review of laboratory results Normal [facility] Glucose [Mass/Vol] 85 mg/dL 65 - 99 mg/dL [facility] Interpretation and review of laboratory results Normal [facility] Gold Topon 07-15-2022 Extra Tube Hold for add-ons. [facility] Comment on above: Auto resulted. [facility] Valle Topon 07-15-2022 Extra Tube Hold for add-ons. [facility] Comment on above: Auto resulted. [facility] HCG ( test) Ql (U)o n 07-15-2022 Beta HCG ( test) Ql (U) Dilute urine specimens, as indicated by a low specific gravity (<1.010) may not contain sales representative adding machines levels of hCG. If is still suspected, a serum test or repeat urine test using a first morning urine specimen should be considered. [facility] Interpretation and review of laboratory results Normal [facility] INR Coag (PPP) [Relative oswald e]on 07-15-2022 Interpretation and review of laboratory results Normal [facility] PT Coag (PPP) [Time] 12.4 s [facility] During the induction phase of oral anticoagulation, the INR may not reflect the anticoagulation status of the patient. Therapeutic ranges for INR's are: Most clinical situations: INR 2.0-3.0 Mechanical Prosthetic Valve: INR 2.5-3.5 Critical: INR >5.0 [facility] Light Blue Topon 07-15-2022 Extra Tube Hold for add-ons. [facility] Comment on above: Auto resulted. [facility] No Panel Informationon 07-15 Extra Tube Hold for add-ons. [facility] Comment on above: Auto resulted. [facility] POC , Urineon 07-15 HCG ( test) Ql (U) Negative Negative [facility] PT/INRon 07-15-2022 INR Coag (PPP) [Relative time] 1.0 {INR} 0.8 - 1.1 [facility] XR Abdomen APon 07-15-2022 EXAMINATION: Abdomen x-ray [...] overlying the abdomen and lower chest with. Rhina Fleming, DO - 07/15/2022 EXAMINATION: Abdomen x-ray HISTORY: [...] too many overlapping structures. Workstation ID: [id number] [facility] Radiology Study observation (narrative) [facility] XR Abdomen APOrdered By: Eleanor shilpa Martinez on 07-15-2022 [facility] Work Phone: XR Lumbar Spine 2-3 Views (S tandard)on 07-15-2022 Baclofen pump appears intact as imaged. Workstation ID: [id number] GetMaid EXAMINATION: XR LUMBAR SPINE 2-3 VIEWS (STANDARD) [...] ischium at site of previously noted osteomyelitis. [id number] RIS Fidencio Martinez MD - 07/15/2022 EXAMINATION: XR LUMBAR SPINE [...] appears intact as imaged. Workstation ID: [id number] [facility] Radiology Study observation (narrative) [facility] XR Lumbar Spine 2-3 Views (S tandard)Ordered By: Fidencio Martinez on 07-15-2022 [facility] Work Phone: XR OR Fluoroscopy Timeon This is an auto finalized result. Please refer to patient chart for further information. GE RIS UPPER ENDOSCOPYon 12-22-[address] [facility] Gastroenterology Patient Name: Claudine Joseph Procedure Date: 12/22/2021 8:31 AM Date of : 1990 Admit Type: Outpatient Age: 31 Room: [facility] Proc Room 01 Gender: Female Note Status: [...] fistula. Providers: Alex Velasco MD (Doctor), Twyla Cardona, TAMMY (Nurse), Nazanin Saavedra, TAMMY (Nurse), eDvin Power MD, PhD (Anesthesia Staff), DEBORA BALDWIN [...] by the physician, the nurse and the geothermal sheet metal worker in the procedure room at 08:31 AM. [...] (more content not included)... LAB, [facility] UPPER ENDOSCOPYon 11-17-[address] [facility] Gastroenterology Patient Name: Claudine Joseph Procedure [...] (Doctor), Rhina Jane RN (Nurse), Brenda Benitez, Sorter/Assay Tech (Sorter/Assay Tech) Referring MD: Eduardo Moreno MD (Referring MD), René Spear MD (Referring MD) Medicines: Monitored Anesthesia Care, Cipro 400 mg [...] by the physician, the nurse and the geothermal sheet metal worker in the procedure room at 14:10 PM. [...] endoscope (more content not included)... LAB, [facility] DEBRIDEMENTOrdered By: Gary Kaplan on 02-18-2021 Werner [...] Response to treatment: procedure was tolerated well [facility] CBC WITH AUTO DIFFERENTIALon 11-27-2020 Basophils (Bld) [#/Vol] 0.10 10*3/uL [facility] Basophils/100 WBC (Bld) 0.9 % [facility] Eosinophils (Bld) [#/Vol] 0.10 10*3/uL [facility] Eosinophils/100 WBC (Bld) 0.9 % [facility] Erythrocyte distribution width (RBC) [Entitic vol] 14.0 % 11.6 - 14.8 % [facility] Hematocrit (Bld) [Volume fraction] 47.1 % High 36.0 - 46.0 % [facility] Hemoglobin (Bld) [Mass/Vol] 13.7 g/dL 12.0 - 16.0 g/dL [facility] Immature granulocytes (Bld) [#/Vol] 0.03 10*3/uL [facility] Immature granulocytes/100 WBC (Bld) 0.30 % [facility] Comment on above: The IG parameter is the percentage of metamyelocytes, myelocytes and promyelocytes. An immature granulocyte count (IG) of 1% or more suggests the possibility of infection, an IG count of 3% is very likely related to an infection. Interpretation and review of laboratory results Abnormal [facility] Lymphocytes (Bld) [#/Vol] 2.52 10*3/uL [facility] Lymphocytes/100 WBC (Bld) 22.4 % [facility] MCH (RBC) [Entitic mass] 28.1 pg 26.0 - 34.0 pg [facility] MCHC (RBC) [Mass/Vol] 29.1 g/dL Low 31.0 - 37.0 g/dL [facility] MCV (RBC) [Entitic vol] 96.7 fL 80.0 - 100.0 fL [facility] Monocytes (Bld) [#/Vol] 0.68 10*3/uL [facility] Monocytes/100 WBC (Bld) 6.0 % [facility] Neutrophils (Bld) [#/Vol] 7.84 10*3/uL High [facility] Neutrophils/100 WBC (Bld) 69.5 % [facility] Nucleated RBC (Bld) [#/Vol] 0.00 10*3/uL [facility] Nucleated RBC/100 WBC (Bld) [Ratio] 0.0 % [facility] Platelet mean volume (Bld) [Entitic vol] 12.3 fL 9.4 - 12.4 fL [facility] Platelets (Bld) [#/Vol] 123 10*3/uL Low [facility] RBC (Bld) [#/Vol] 4.87 10*6/uL [facility] ealth WBC (Bld) [#/Vol] 11.27 10*3/uL High [facility] CRP, Inflammationon 11-28-19 CRP [Mass/Vol] 6.4 mg/L 0.0 - 10.0 mg/L [facility] Interpretation and review of laboratory results Normal [facility] Chem 7on 11-27-2020 Anion gap [Moles/Vol] 15 mmol/L 10 - 2 0 mmol/L [facility] Chloride [Moles/Vol] 110 mmol/L High 98 - 10 8 mmol/L [facility] Creatinine [Mass/Vol] 0.33 mg/dL Low 0.40 - 1.10 [facility] GFR/1.73 sq M predicted among non-blacks MDRD (S/P/Bld) [Vol rate/Area] The eGFR should be used for monitoring renal function only and not for medication dosing. [facility] GFR/1.73 sq M.predicted CKD-EPI (S/P/Bld) [Vol rate/Area] 149 >=60 mL/min/1.73 m2 [facility] Glucose [Mass/Vol] 96 mg/dL 65 - 99 mg/dL [facility] HCO3 [Moles/Vol] 33 mmol/L High 21 - 32 mmol/L [facility] Interpretation and review of laboratory results Abnormal [facility] Potassium [Moles/Vol] 5.0 mmol/L 3.5 - 5.1 mmol/L [facility] Comment on above: Moderately Hemolyzed Sodium [Moles/Vol] 153 mmol/L High 135 - 145 mmol/L [facility] Urea nitrogen [Mass/Vol] 25 mg/dL 8 - 25 mg/dL [facility] Urea nitrogen/Creatinine [Mass ratio] 75.8 mg/mg High [facility] HCG (QUALITATIVE)on 11-28-19 21 Beta HCG ( test) Ql Negative Negative [facility] Interpretation and review of laboratory results Normal [facility] Negative: The result is less than or equal to 5 mIU/mL of HCG. [facility] Otheron 11-27-2020 Extra Tube Hold for add-ons. [facility] Comment on above: Auto resulted. Sedimentation Rateon 021 ESR (Bld) [Velocity] 62 mm/h [facility] Interpretation and review of laboratory results Abnormal [facility] Basic Metabolic Panelon 08-31 Anion gap [Moles/Vol] 14 mmol/L 10 - 2 0 mmol/L [facility] Calcium [Mass/Vol] 9.6 mg/dL 8.4 - 10. 2 mg/dL [facility] Chloride [Moles/Vol] 105 mmol/L 98 - 10 8 mmol/L [facility] Creatinine [Mass/Vol] 0.31 mg/dL Low 0.40 - 1.10 [facility] GFR/1.73 sq M predicted among non-blacks MDRD (S/P/Bld) [Vol rate/Area] The eGFR should be used for monitoring renal function only and not for medication dosing. [facility] GFR/1.73 sq M.predicted CKD-EPI (S/P/Bld) [Vol rate/Area] 152 >=60 mL/min/1.73 m2 [facility] Glucose [Mass/Vol] 99 mg/dL 65 - 99 mg/dL [facility] HCO3 [Moles/Vol] 23 mmol/L 21 - 32 mmol/L [facility] Interpretation and review of laboratory results Abnormal [facility] Potassium [Moles/Vol] 3.8 mmol/L 3.5 - 5.1 mmol/L [facility] Sodium [Moles/Vol] 138 mmol/L 135 - 145 mmol/L [facility] Urea nitrogen [Mass/Vol] 15 mg/dL 8 - 25 mg/dL [facility] Urea nitrogen/Creatinine [Mass ratio] 48.4 mg/mg [facility] CBCon 09-24-2020 Erythrocyte distribution width (RBC) [Entitic vol] 13.8 % 11.6 - 14.8 % [facility] Hematocrit (Bld) [Volume fraction] 37.1 % 36.0 - 46.0 % [facility] Hemoglobin (Bld) [Mass/Vol] 11.5 g/dL Low 12.0 - 16.0 g/dL [facility] Interpretation and review of laboratory results Abnormal [facility] MCH (RBC) [Entitic mass] 28.1 pg 26.0 - 34.0 pg [facility] MCHC (RBC) [Mass/Vol] 31.0 g/dL 31.0 - 37.0 g/dL [facility] MCV (RBC) [Entitic vol] 90.7 fL 80.0 - 100.0 fL [facility] Nucleated RBC (Bld) [#/Vol] 0.00 10*3/uL [facility] Nucleated RBC/100 WBC (Bld) [Ratio] 0.0 % [facility] Platelet mean volume (Bld) [Entitic vol] 11.1 fL 9.4 - 12.4 fL [facility] Platelets (Bld) [#/Vol] 280 10*3/uL [facility] Comment on above: Platelets clumped on peripheral smear. Results may be affected RBC (Bld) [#/Vol] 4.09 10*6/uL [facility] WBC (Bld) [#/Vol] 9.84 10*3/uL [facility] BMPon 09-23-2020 Anion gap [Moles/Vol] 14 mmol/L 10 - 2 0 mmol/L [facility] Calcium [Mass/Vol] 9.8 mg/dL 8.4 - 10. 2 mg/dL [facility] Chloride [Moles/Vol] 102 mmol/L 98 - 10 8 mmol/L [facility] Creatinine [Mass/Vol] 0.33 mg/dL Low 0.40 - 1.10 [facility] GFR/1.73 sq M predicted among non-blacks MDRD (S/P/Bld) [Vol rate/Area] The eGFR should be used for monitoring renal function only and not for medication dosing. [facility] GFR/1.73 sq M.predicted CKD-EPI (S/P/Bld) [Vol rate/Area] 149 >=60 mL/min/1.73 m2 [facility] Glucose [Mass/Vol] 97 mg/dL 65 - 99 mg/dL [facility] HCO3 [Moles/Vol] 27 mmol/L 21 - 32 mmol/L [facility] Interpretation and review of laboratory results Abnormal [facility] Potassium [Moles/Vol] 4.2 mmol/L 3.5 - 5.1 mmol/L [facility] Sodium [Moles/Vol] 139 mmol/L 135 - 145 mmol/L [facility] Urea nitrogen [Mass/Vol] 14 mg/dL 8 - 25 mg/dL [facility] Urea nitrogen/Creatinine [Mass ratio] 42.4 mg/mg High [facility] CBC WITH AUTO DIFFERENTIALon 09-23-2020 Basophils (Bld) [#/Vol] 0.10 10*3/uL [facility] Basophils/100 WBC (Bld) 0.9 % [facility] Eosinophils (Bld) [#/Vol] 0.08 10*3/uL [facility] Eosinophils/100 WBC (Bld) 0.8 % [facility] Erythrocyte distribution width (RBC) [Entitic vol] 13.7 % 11.6 - 14.8 % [facility] Hematocrit (Bld) [Volume fraction] 38.0 % 36.0 - 46.0 % [facility] Hemoglobin (Bld) [Mass/Vol] 11.9 g/dL Low 12.0 - 16.0 g/dL [facility] Immature granulocytes (Bld) [#/Vol] 0.03 10*3/uL [facility] Immature granulocytes/100 WBC (Bld) 0.30 % [facility] Comment on above: The IG parameter is the percentage of metamyelocytes, myelocytes and promyelocytes. An immature granulocyte count (IG) of 1% or more suggests the possibility of infection, an IG count of 3% is very likely related to an infection. Interpretation and review of laboratory results Abnormal [facility] Lymphocytes (Bld) [#/Vol] 1.97 10*3/uL [facility] Lymphocytes/100 WBC (Bld) 18.6 % [facility] MCH (RBC) [Entitic mass] 27.8 pg 26.0 - 34.0 pg [facility] MCHC (RBC) [Mass/Vol] 31.3 g/dL 31.0 - 37.0 g/dL [facility] MCV (RBC) [Entitic vol] 88.8 fL 80.0 - 100.0 fL [facility] Monocytes (Bld) [#/Vol] 0.75 10*3/uL [facility] Monocytes/100 WBC (Bld) 7.1 % [facility] Neutrophils (Bld) [#/Vol] 7.66 10*3/uL High [facility] Neutrophils/100 WBC (Bld) 72.3 % [facility] Nucleated RBC (Bld) [#/Vol] 0.00 10*3/uL [facility] Nucleated RBC/100 WBC (Bld) [Ratio] 0.0 % [facility] Platelet mean volume (Bld) [Entitic vol] 11.8 fL 9.4 - 12.4 fL [facility] Platelets (Bld) [#/Vol] 159 10*3/uL [facility] Comment on above: Platelets clumped on peripheral smear. Results may be affected RBC (Bld) [#/Vol] 4.28 10*6/uL [facility]alth WBC (Bld) [#/Vol] 10.59 10*3/uL [facility] COVID-19/Influenza A,B Molec ularon 09-23-2020 Influenza A Not Detected Not Detected [facility] Influenza B Not Detected Not Detected [facility] Interpretation and review of laboratory results Abnormal [facility] SARS-CoV-2 Detected Abnormal Not Detected [facility] This test was perfor med under the [...] the following links: For Healthcare Providers: https://www.fda.gov/medi a/536158/download For Patients: https://www.fda.gov/medi a/018394/download [facility] Otheron 09-23-2020 Extra Tube Hold for add-ons. [facility] Comment on above: Auto resulted. XR Chest 1 Viewon 09-23-2020 No significant yamilka trujillo Workstation ID: [id number] [facility] Interface, Rad In Fu ji Speechq - 09/23/2020 4:24 PM EST EXAMINATION: [...] IMPRESSION: No significant change Workstation ID: [id number] [facility] EXAMINATION: XR CHES T PA/AP 09/23/2020 3:18 [...] Spinal hardware steerable. Bones are grossly stable. [facility] CBCon 08-13-2020 Erythrocyte distribution width (RBC) [Entitic vol] 13.2 % 11.6 - 14.8 % [facility] Hematocrit (Bld) [Volume fraction] 38.3 % 36 - 46 % [facility] Hemoglobin (Bld) [Mass/Vol] 11.9 g/dL Low 12 - 16 g/dL [facility] Interpretation and review of laboratory results Abnormal [facility] MCH (RBC) [Entitic mass] 28.1 pg 26 - 34 pg [facility] MCHC (RBC) [Mass/Vol] 31.1 g/dL 31 - 37 g/dL [facility] MCV (RBC) [Entitic vol] 90.5 fL 80 - 100 fL [facility] Nucleated RBC (Bld) [#/Vol] 0.00 10*3/uL [facility] Nucleated RBC/100 WBC (Bld) [Ratio] 0.0 % [facility] Platelet mean volume (Bld) [Entitic vol] 11.3 fL 9.4 - 12.4 fL [facility] Platelets (Bld) [#/Vol] 251 10*3/uL [facility] RBC (Bld) [#/Vol] 4.23 10*6/uL [facility] WBC (Bld) [#/Vol] 9.83 10*3/uL [facility] COVID-19/Influenza A,B Molec ularon 08-13-2020 Influenza A Not Detected Not Detected [facility] Influenza B Not Detected Not Detected [facility] Interpretation and review of laboratory results Normal [facility] SARS-CoV-2 Not Detected Not Detected [facility] This test was perfor med under the [...] the following links: For Healthcare Providers: https://www.fda.gov/medi a/482735/download For Patients: https://www.fda.gov/medi a/716711/download [facility] Comprehensive Metabolic [facility] 08-13-2020 Albumin [Mass/Vol] 4.4 g/dL 3.2 - 5.2 g/dL [facility] ALP [Catalytic activity/Vol] 193 U/L High 40 - 140 U/L [facility] ALT [Catalytic activity/Vol] 18 U/L 0 - 40 U/L [facility] Anion gap [Moles/Vol] 13 mmol/L 10 - 2 0 mmol/L [facility] AST [Catalytic activity/Vol] 16 U/L 0 - 45 U/L [facility] Bilirubin [Mass/Vol] 0.2 mg/dL 0 - 1.3 mg/dL [facility] Calcium [Mass/Vol] 9.9 mg/dL 8.4 - 10. 2 mg/dL [facility] Chloride [Moles/Vol] 100 mmol/L 98 - 10 8 mmol/L [facility] Creatinine [Mass/Vol] 0.48 mg/dL 0.40 - 1.10 [facility] GFR/1.73 sq M predicted among non-blacks MDRD (S/P/Bld) [Vol rate/Area] The eGFR should be used for monitoring renal function only and not for medication dosing. [facility] GFR/1.73 sq M.predicted CKD-EPI (S/P/Bld) [Vol rate/Area] 132 >=60 mL/min/1.73 m2 [facility] Glucose [Mass/Vol] 92 mg/dL 65 - 99 mg/dL [facility] HCO3 [Moles/Vol] 32 mmol/L 21 - 32 mmol/L [facility] [facility] Interpretation and review of laboratory results Abnormal [facility] Potassium [Moles/Vol] 3.4 mmol/L Low 3.5 - 5.1 mmol/L [facility] Protein [Mass/Vol] 7.9 g/dL 6 - 8 g/dL [facility] alth Sodium [Moles/Vol] 142 mmol/L 135 - 145 mmol/L [facility] Urea nitrogen [Mass/Vol] 17 mg/dL 8 - 25 mg/dL [facility] Urea nitrogen/Creatinine [Mass ratio] 35.4 mg/mg High [facility] Lactic Acid, Plasmaon 2019 Interpretation and review of laboratory results Normal [facility] Lactate [Moles/Vol] 0.9 mmol/L 0.6 - 2 mmol/L [facility] Otheron 08-13-2020 Extra Tube Hold for add-ons. [facility] Comment on above: Auto resulted. XR CHEST AP/PA AND LATon Interface, Rad In Fu ji Speechq - 08/13/2020 7:53 PM EST EXAMINATION: TWO [...] heart size. 5. No other interval change. GJT/mjr Workstation ID: [id number] [facility] EXAMINATION: TWO VIE W XR CHEST AP/PA [...] Best images possible, due to pt condition. [facility] 1. Exam is limited d ue to [...] heart size. 5. No other interval change. GJT/mjr Workstation ID: [id number] [facility] Basic Metabolic Panelon 02-28 Anion gap [Moles/Vol] 18 mmol/L 10 - 2 0 mmol/L [facility] Calcium [Mass/Vol] 9.9 mg/dL 8.4 - 10. 2 mg/dL [facility] Chloride [Moles/Vol] 104 mmol/L 98 - 10 8 mmol/L [facility] Creatinine [Mass/Vol] 0.34 mg/dL Low 0.40 - 1.10 [facility] GFR/1.73 sq M predicted among non-blacks MDRD (S/P/Bld) [Vol rate/Area] The eGFR should be used for monitoring renal function only and not for medication dosing. [facility] GFR/1.73 sq M.predicted CKD-EPI (S/P/Bld) [Vol rate/Area] 149 >=60 mL/min/1.73 m2 [facility] Glucose [Mass/Vol] 88 mg/dL 65 - 99 mg/dL [facility] HCO3 [Moles/Vol] 27 mmol/L 21 - 32 mmol/L [facility] Interpretation and review of laboratory results Abnormal [facility] Potassium [Moles/Vol] 4.0 mmol/L 3.5 - 5.1 mmol/L [facility] Sodium [Moles/Vol] 145 mmol/L 135 - 145 mmol/L [facility] Urea nitrogen [Mass/Vol] 11 mg/dL 8 - 25 mg/dL [facility] Urea nitrogen/Creatinine [Mass ratio] 32.4 mg/mg High [facility] Urine Aerobic Cultureon 02-28 Bacteria identified Aer cx Nom (Unsp spec) Three or more colony types; >10,000 CFU/mL mixture of normal urogenital microbiota. None predominant. Possible contamination. Suggest repeat if clinically indicated. [facility] CBC WITH AUTO DIFFERENTIALon 03-21-2020 Basophils (Bld) [#/Vol] 0.10 10*3/uL [facility] Basophils/100 WBC (Bld) 1.3 % [facility] Eosinophils (Bld) [#/Vol] 0.07 10*3/uL [facility] Eosinophils/100 WBC (Bld) 0.9 % [facility] Erythrocyte distribution width (RBC) [Entitic vol] 14.3 % 11.6 - 14.8 % [facility] Hematocrit (Bld) [Volume fraction] 41.2 % 36 - 46 % [facility] Hemoglobin (Bld) [Mass/Vol] 12.0 g/dL 12 - 16 g/dL [facility] Immature granulocytes (Bld) [#/Vol] 0.02 10*3/uL [facility] Immature granulocytes/100 WBC (Bld) 0.30 % [facility] Comment on above: The IG parameter is the percentage of metamyelocytes, myelocytes and promyelocytes. An immature granulocyte count (IG) of 1% or more suggests the possibility of infection, an IG count of 3% is very likely related to an infection. Interpretation and review of laboratory results Abnormal [facility] Lymphocytes (Bld) [#/Vol] 2.26 10*3/uL [facility] Lymphocytes/100 WBC (Bld) 28.4 % [facility] MCH (RBC) [Entitic mass] 25.8 pg Low 26 - 34 pg [facility] MCHC (RBC) [Mass/Vol] 29.1 g/dL Low 31 - 37 g/dL [facility] MCV (RBC) [Entitic vol] 88.6 fL 80 - 100 fL [facility] Monocytes (Bld) [#/Vol] 0.66 10*3/uL [facility] Monocytes/100 WBC (Bld) 8.3 % [facility] Neutrophils (Bld) [#/Vol] 4.84 10*3/uL [facility] Neutrophils/100 WBC (Bld) 60.8 % [facility] Nucleated RBC (Bld) [#/Vol] 0.00 10*3/uL [facility] Nucleated RBC/100 WBC (Bld) [Ratio] 0.0 % [facility] Platelet mean volume (Bld) [Entitic vol] 11.9 fL 9.4 - 12.4 fL [facility] Platelets (Bld) [#/Vol] 208 10*3/uL [facility] RBC (Bld) [#/Vol] 4.65 10*6/uL [facility] WBC (Bld) [#/Vol] 7.95 10*3/uL [facility] COVID-19, Molecularon 2019 Interpretation and review of laboratory results Normal [facility] SARS-CoV-2 Not Detected Not Detected [facility] Comment on above: This test was perfor [...] at the following links: For Healthcare Providers: https://www.Trusteer.gov/media/526475/download For Patients: https://www.fda.gov/media/570303/download CT Abdomen Pelvis With IV Co ntrast Onlyon 03-21-2020 Interface, [facility] 03/21/2020 7:44 PM EDT EXAMINATION: CT [...] 4. Normal appendix. TJL/lab Workstation ID: [id number] [facility] EXAMINATION: CT ABDO MEN PELVIS WITH IV [...] lymph nodes are visualized within the pelvis. [facility] 1. Sage catheter is present within decompressed [...] 4. Normal appendix. TJL/lab Workstation ID: [id number] [facility] Chem 7on 07-23-2020 Anion gap [Moles/Vol] 16 mmol/L 10 - 2 0 mmol/L [facility] Chloride [Moles/Vol] 103 mmol/L 98 - 10 8 mmol/L [facility] Creatinine [Mass/Vol] 0.33 mg/dL Low 0.40 - 1.10 [facility] GFR/1.73 sq M predicted among non-blacks MDRD (S/P/Bld) [Vol rate/Area] The eGFR should be used for monitoring renal function only and not for medication dosing. [facility] GFR/1.73 sq M.predicted CKD-EPI (S/P/Bld) [Vol rate/Area] 150 >=60 mL/min/1.73 m2 [facility] Glucose [Mass/Vol] 85 mg/dL 65 - 99 mg/dL [facility] HCO3 [Moles/Vol] 31 mmol/L 21 - 32 mmol/L [facility] Interpretation and review of laboratory results Abnormal [facility] Potassium [Moles/Vol] 4.3 mmol/L 3.5 - 5.1 mmol/L [facility] Sodium [Moles/Vol] 146 mmol/L High 135 - 145 mmol/L [facility] Urea nitrogen [Mass/Vol] 14 mg/dL 8 - 25 mg/dL [facility] Urea nitrogen/Creatinine [Mass ratio] 42.4 mg/mg High [facility] HCG (QUALITATIVE)on 03-21-20 20 Beta HCG ( test) Ql Negative Negative [facility] Interpretation and review of laboratory results Normal [facility] Negative: The result is less than or equal to 5 mIU/mL of HCG. [facility] Lactic Acid, Plasmaon 2019 Interpretation and review of laboratory results Normal [facility] Lactate [Moles/Vol] 0.9 mmol/L 0.6 - 2 mmol/L [facility] Otheron 03-21-2020 Extra Tube Hold for add-ons. [facility] Comment on above: Auto resulted. URINALYSISon 03-21-2020 Bacteria Auto Ql (U) Many Abnormal None Se en /hpf [facility] Bilirubin Ql (U) Negative Negative [facility] Calcium oxalate crystals Computer assisted (U) [#/Area] Many Abnormal None Seen /hpf [facility] Clarity Refractometry automated (U) Cloudy Abnormal Clear [facility] Color (U) Yellow Colorless, Yellow [facility] Crystals.amorphous Computer assisted (U) [#/Area] Few Abnormal None Seen, Rare /hpf [facility] Glucose Auto test strip (U) [Mass/Vol] Negative Negative mg/dL [facility] Hemoglobin Auto test strip Ql (U) Negative Negative [facility] Interpretation and review of laboratory results Abnormal [facility] Ketones (U) [Mass/Vol] Negative Negat ivan mg/dL [facility] Leukocyte esterase Auto test strip Ql (U) Large [facility]Urine sed[facility] [#/Area] Few Abnormal None Seen, Rare /lpf [facility] Nitrite Auto test strip Ql (U) Negative Negative [facility] pH (U) 8.0 [pH] High [facility] Protein (U) [Mass/Vol] Negative Negat ivan mg/dL [facility] Specific gravity (U) [Rel density] 1.011 [facility] Urobilinogen (U) [Mass/Vol] <2.0 <2.0 mg/dL [facility] WBC Auto (Urine sed) [#/Area] 113 High [facility] Yeast.budding Computer assisted (U) [#/Area] Rare Abnormal None Seen /hpf [facility] Yeast.hyphae Computer assisted (U) [#/Area] Rare Abnormal None Seen /hpf [facility] Microscopic examinat ion is performed on all urinalysis samples and only positive findings are reported. The test for blood on the chemical analytic portion of urinalysis may also be positive due to hemoglobinuria and myoglobinuria and if red blood cells are present they are quantified by microscopic examination. [facility] XR Chest 1 Viewon 03-21-2020 Interface, Rad In ji Speech - 03/21/2020 4:05 PM EDT EXAMINATION: XR [...] convexity to the right. Workstation ID: [id number] [facility] EXAMINATION: XR CHES T PA/AP 03/21/2020 3:39 [...] lung field is limited due to rotation. [facility] 1. Limited exam due to the patient's condition. 2. Lungs are free of focal infiltrates. 4. Marked scoliotic deformity of the spine with convexity to the right. Workstation ID: [id number] [facility] Basic Metabolic Panelon 01-28 Anion gap [Moles/Vol] 15 mmol/L 10 - 2 0 mmol/L [facility] Calcium [Mass/Vol] 9.3 mg/dL 8.4 - 10. 2 mg/dL [facility] Chloride [Moles/Vol] 105 mmol/L 98 - 10 8 mmol/L [facility] Creatinine [Mass/Vol] 0.26 mg/dL Low 0.40 - 1.10 [facility] GFR/1.73 sq M predicted among non-blacks MDRD (S/P/Bld) [Vol rate/Area] The eGFR should be used for monitoring renal function only and not for medication dosing. [facility] GFR/1.73 sq M.predicted CKD-EPI (S/P/Bld) [Vol rate/Area] 163 >=60 mL/min/1.73 m2 [facility] Glucose [Mass/Vol] 142 mg/dL High 65 - 99 mg/dL [facility] HCO3 [Moles/Vol] 26 mmol/L 21 - 32 mmol/L [facility] Interpretation and review of laboratory results Abnormal [facility] Potassium [Moles/Vol] 3.5 mmol/L 3.5 - 5.1 mmol/L [facility] Sodium [Moles/Vol] 142 mmol/L 135 - 145 mmol/L [facility] Urea nitrogen [Mass/Vol] 7 mg/dL Low 8 - 25 mg/dL [facility] Urea nitrogen/Creatinine [Mass ratio] 26.9 mg/mg High [facility] CBC WITH AUTO DIFFERENTIALon 02-14-2020 Basophils (Bld) [#/Vol] 0.12 10*3/uL [facility] Basophils/100 WBC (Bld) 1.0 % [facility] Eosinophils (Bld) [#/Vol] 0.25 10*3/uL [facility] Eosinophils/100 WBC (Bld) 2.0 % [facility] Erythrocyte distribution width (RBC) [Entitic vol] 14.8 % 11.6 - 14.8 % [facility] Hematocrit (Bld) [Volume fraction] 34.5 % Low 36 - 46 % [facility] Hemoglobin (Bld) [Mass/Vol] 9.6 g/dL Low 12 - 16 g/dL [facility] Immature granulocytes (Bld) [#/Vol] 0.04 10*3/uL [facility] Immature granulocytes/100 WBC (Bld) 0.30 % [facility] Comment on above: The IG parameter is the percentage of metamyelocytes, myelocytes and promyelocytes. An immature granulocyte count (IG) of 1% or more suggests the possibility of infection, an IG count of 3% is very likely related to an infection. Interpretation and review of laboratory results Abnormal [facility] Lymphocytes (Bld) [#/Vol] 2.56 10*3/uL [facility] Lymphocytes/100 WBC (Bld) 20.8 % [facility] MCH (RBC) [Entitic mass] 26.3 pg 26 - 34 pg [facility] MCHC (RBC) [Mass/Vol] 27.8 g/dL Low 31 - 37 g/dL [facility] MCV (RBC) [Entitic vol] 94.5 fL 80 - 100 fL [facility] Monocytes (Bld) [#/Vol] 0.75 10*3/uL [facility] Monocytes/100 WBC (Bld) 6.1 % [facility] Neutrophils (Bld) [#/Vol] 8.56 10*3/uL High [facility] Neutrophils/100 WBC (Bld) 69.8 % [facility] Nucleated RBC (Bld) [#/Vol] 0.00 10*3/uL [facility] Nucleated RBC/100 WBC (Bld) [Ratio] 0.0 % [facility] Platelet mean volume (Bld) [Entitic vol] 11.5 fL 9.4 - 12.4 fL [facility] Platelets (Bld) [#/Vol] 195 10*3/uL [facility] RBC (Bld) [#/Vol] 3.65 10*6/uL Low [facility] ealth WBC (Bld) [#/Vol] 12.28 10*3/uL High [facility] Basic Metabolic Panelon 01-28 Anion gap [Moles/Vol] 12 mmol/L 10 - 2 0 mmol/L [facility] Calcium [Mass/Vol] 8.6 mg/dL 8.4 - 10. 2 mg/dL [facility] Chloride [Moles/Vol] 109 mmol/L High 98 - 10 8 mmol/L [facility] Creatinine [Mass/Vol] 0.24 mg/dL Low 0.40 - 1.10 [facility] GFR/1.73 sq M predicted among non-blacks MDRD (S/P/Bld) [Vol rate/Area] The eGFR should be used for monitoring renal function only and not for medication dosing. [facility] GFR/1.73 sq M.predicted CKD-EPI (S/P/Bld) [Vol rate/Area] 167 >=60 mL/min/1.73 m2 [facility] Glucose [Mass/Vol] 93 mg/dL 65 - 99 mg/dL [facility] HCO3 [Moles/Vol] 27 mmol/L 21 - 32 mmol/L [facility] Interpretation and review of laboratory results Abnormal [facility] Potassium [Moles/Vol] 2.8 mmol/L Low 3.5 - 5.1 mmol/L [facility] Sodium [Moles/Vol] 145 mmol/L 135 - 145 mmol/L [facility] Urea nitrogen [Mass/Vol] 9 mg/dL 8 - 25 mg/dL [facility] Urea nitrogen/Creatinine [Mass ratio] 37.5 mg/mg [facility] CBC WITH AUTO DIFFERENTIALon 02-13-2020 Basophils (Bld) [#/Vol] 0.07 10*3/uL [facility] Basophils/100 WBC (Bld) 0.6 % [facility] Eosinophils (Bld) [#/Vol] 0.01 10*3/uL [facility] Eosinophils/100 WBC (Bld) 0.1 % [facility] Erythrocyte distribution width (RBC) [Entitic vol] 14.6 % 11.6 - 14.8 % [facility] Hematocrit (Bld) [Volume fraction] 30.2 % Low 36 - 46 % [facility] Hemoglobin (Bld) [Mass/Vol] 8.8 g/dL Low 12 - 16 g/dL [facility] Immature granulocytes (Bld) [#/Vol] 0.08 10*3/uL [facility] Immature granulocytes/100 WBC (Bld) 0.60 % [facility] Comment on above: The IG parameter is the percentage of metamyelocytes, myelocytes and promyelocytes. An immature granulocyte count (IG) of 1% or more suggests the possibility of infection, an IG count of 3% is very likely related to an infection. Interpretation and review of laboratory results Abnormal [facility] Lymphocytes (Bld) [#/Vol] 2.72 10*3/uL [facility] Lymphocytes/100 WBC (Bld) 21.6 % [facility] MCH (RBC) [Entitic mass] 26.6 pg 26 - 34 pg [facility] MCHC (RBC) [Mass/Vol] 29.1 g/dL Low 31 - 37 g/dL [facility] MCV (RBC) [Entitic vol] 91.2 fL 80 - 100 fL [facility] Monocytes (Bld) [#/Vol] 0.92 10*3/uL [facility] Monocytes/100 WBC (Bld) 7.3 % [facility] Neutrophils (Bld) [#/Vol] 8.82 10*3/uL High [facility] Neutrophils/100 WBC (Bld) 69.8 % [facility] Nucleated RBC (Bld) [#/Vol] 0.00 10*3/uL [facility] Nucleated RBC/100 WBC (Bld) [Ratio] 0.0 % [facility] Platelet mean volume (Bld) [Entitic vol] 10.7 fL 9.4 - 12.4 fL [facility] Platelets (Bld) [#/Vol] 296 10*3/uL [facility] RBC (Bld) [#/Vol] 3.31 10*6/uL Low [facility] ealth WBC (Bld) [#/Vol] 12.62 10*3/uL [facility] ECG 12-LEADon 02-13-2020 Atrial Rate 124 BPM [facility] P [place] 56 degrees [facility] P-R Interval 166 ms [facility] Q-T Interval 300 ms [facility] QRS Duration 74 ms [facility] QTC Calculation (Bezet) 431 ms [facility] R [place] 83 degrees [facility] T [place] 12 degrees [facility] Ventricular Rate 124 BPM [facility] Sinus tachycardia T wave abnormality, consider anterolateral ischemia Abnormal ECG Confirmed by RENETTA RIVERA MD ([id number]) on 02/13/2020 7:43:18 AM [facility] Lactic Acid, Plasmaon 2019 Interpretation and review of laboratory results Normal [facility] Lactate [Moles/Vol] 0.9 mmol/L 0.6 - 2 mmol/L [facility] CBC WITH AUTO DIFFERENTIALon 02-12-2020 Basophils (Bld) [#/Vol] 0.09 10*3/uL [facility] Basophils/100 WBC (Bld) 0.5 % [facility] Eosinophils (Bld) [#/Vol] 0.01 10*3/uL [facility] Eosinophils/100 WBC (Bld) 0.1 % [facility] Erythrocyte distribution width (RBC) [Entitic vol] 14.4 % 11.6 - 14.8 % [facility] Hematocrit (Bld) [Volume fraction] 40.2 % 36 - 46 % [facility] Hemoglobin (Bld) [Mass/Vol] 11.7 g/dL Low 12 - 16 g/dL [facility] Immature granulocytes (Bld) [#/Vol] 0.18 10*3/uL [facility] Immature granulocytes/100 WBC (Bld) 1.00 % [facility] Comment on above: The IG parameter is the percentage of metamyelocytes, myelocytes and promyelocytes. An immature granulocyte count (IG) of 1% or more suggests the possibility of infection, an IG count of 3% is very likely related to an infection. Interpretation and review of laboratory results Abnormal [facility] Lymphocytes (Bld) [#/Vol] 0.90 10*3/uL [facility] Lymphocytes/100 WBC (Bld) 4.9 % [facility] MCH (RBC) [Entitic mass] 26.4 pg 26 - 34 pg [facility] MCHC (RBC) [Mass/Vol] 29.1 g/dL Low 31 - 37 g/dL [facility] MCV (RBC) [Entitic vol] 90.7 fL 80 - 100 fL [facility] Monocytes (Bld) [#/Vol] 0.15 10*3/uL Low [facility] Monocytes/100 WBC (Bld) 0.8 % [facility] Neutrophils (Bld) [#/Vol] 17.04 10*3/uL High [facility] Neutrophils/100 WBC (Bld) 92.7 % [facility] Nucleated RBC (Bld) [#/Vol] 0.00 10*3/uL [facility] Nucleated RBC/100 WBC (Bld) [Ratio] 0.0 % [facility] Platelet mean volume (Bld) [Entitic vol] 11.8 fL 9.4 - 12.4 fL [facility] Platelets (Bld) [#/Vol] 238 10*3/uL [facility] RBC (Bld) [#/Vol] 4.43 10*6/uL [facility]alth WBC (Bld) [#/Vol] 18.37 10*3/uL [facility] COVID-19, Molecularon 2019 Interpretation and review of laboratory results Normal [facility] SARS-CoV-2 Not Detected Not Detected [facility] Comment on above: This test was perfor med under the FDA's Emergency Use Authorization (EUA). Testing was performed using the [employer] ID NOW COVID-19 assay on the ID NOW platform. This test has not been approved for use in asymptomatic patients and its performance in this patient population has not been evaluated. Negative results do not rule out the presence of SARS-CoV-2/COVID-19. Fact sheets for the EUA can be found at the following links: For Healthcare Providers: https://www.fda.gov/media/734105/download For Patients: https://www.fda.gov/media/188603/download Chem 02-12-2020 Anion gap [Moles/Vol] 16 mmol/L 10 - 2 0 mmol/L [facility] Chloride [Moles/Vol] 97 mmol/L Low 98 - 10 8 mmol/L [facility] Creatinine [Mass/Vol] 0.33 mg/dL Low 0.40 - 1.10 [facility] G[facility]/1.73 sq M predicted among non-blacks MDRD (S/P/Bld) [Vol rate/Area] The eGFR should be used for monitoring renal function only and not for medication dosing. [facility] GFR/1.73 sq M.predicted CKD-EPI (S/P/Bld) [Vol rate/Area] 150 >=60 mL/min/1.73 m2 [facility] Glucose [Mass/Vol] 135 mg/dL High 65 - 99 mg/dL [facility] HCO3 [Moles/Vol] 35 mmol/L High 21 - 32 mmol/L [facility] Potassium [Moles/Vol] 3.6 mmol/L 3.5 - 5.1 mmol/L [facility] Sodium [Moles/Vol] 144 mmol/L 135 - 145 mmol/L [facility] Urea nitrogen [Mass/Vol] 19 mg/dL 8 - 25 mg/dL [facility] Urea nitrogen/Creatinine [Mass ratio] 57.6 mg/mg High [facility] Hepatic Function Panel (LFT) on 02-12-2020 Albumin [Mass/Vol] 4.5 g/dL 3.2 - 5.2 g/dL [facility] ALP [Catalytic activity/Vol] 254 U/L High 40 - 140 U/L [facility] ALT [Catalytic activity/Vol] 35 U/L 0 - 40 U/L [facility] AST [Catalytic activity/Vol] 21 U/L 0 - 45 U/L [facility] Bilirubin [Mass/Vol] 0.3 mg/dL 0 - 1.3 mg/dL [facility] Bilirubin.conjugated [Mass/Vol] 0.1 mg/dL 0 - 0.4 mg/dL [facility] Interpretation and review of laboratory results Abnormal [facility] Protein [Mass/Vol] 8.3 g/dL High 6 - 8 g/dL [facility] Lactic Acid, Plasmaon 2019 Interpretation and review of laboratory results Normal [facility] Lactate [Moles/Vol] 1.5 mmol/L 0.6 - 2 mmol/L [facility] Lactate [Moles/Vol] 4.0 mmol/L High 0.6 - 2 mmol/L [facility] Lipaseon 02-12-2020 Interpretation and review of laboratory results Normal [facility] Lipase [Catalytic activity/Vol] 21 U/L 15 - 65 U/L [facility] Otheron 02-12-2020 Extra Tube Hold for add-ons. [facility] Comment on above: Auto resulted. Interpretation and review of laboratory results Abnormal [facility] URINALYSISon 02-12-2020 Bacteria Auto Ql (U) Many Abnormal None Se en /hpf [facility] Bilirubin Ql (U) Negative Negative [facility] th Calcium oxalate crystals Computer assisted (U) [#/Area] Few Abnormal None Seen /hpf [facility] Clarity Refractometry automated (U) Cloudy Abnormal Clear [facility] Color (U) Colette Abnormal Colorless, Yellow [facility] Crystals.amorphous Computer assisted (U) [#/Area] Few Abnormal None Seen, Rare /hpf [facility] Glucose Auto test strip (U) [Mass/Vol] Negative Negative mg/dL [facility] Hemoglobin Auto test strip Ql (U) Negative Negative [facility] Interpretation and review of laboratory results Abnormal [facility] Ketones (U) [Mass/Vol] Negative Negat ivan mg/dL [facility] Leukocyte esterase Auto test strip Ql (U) Small Abnormal Negative [facility] h Mucus Auto (Urine sed) [#/Area] Many Abnormal None Seen, Rare /lpf [facility] Nitrite Auto test strip Ql (U) Negative Negative [facility] pH (U) 8.0 [pH] High [facility] Protein (U) [Mass/Vol] 100 Abnormal Negat ivan mg/dL [facility] RBC Auto (Urine sed) [#/Area] 21 High [facility] Specific gravity (U) [Rel density] 1.030 High [facility] Urobilinogen (U) [Mass/Vol] <2.0 <2.0 mg/dL [facility] WBC Auto (Urine sed) [#/Area] 37 High [facility] Microscopic examinat ion is performed on all urinalysis samples and only positive findings are reported. The test for blood on the chemical analytic portion of urinalysis may also be positive due to hemoglobinuria and myoglobinuria and if red blood cells are present they are quantified by microscopic examination. [facility] XR Chest 1 Viewon 02-12-2020 1. Limited exam due to the patient's condition. 2. Small amount of bibasilar atelectasis versus early infiltrates. Grossly no consolidation. Workstation ID: [id number] [facility] EXAMINATION: XR CHES T PA/AP 02/12/2020 2:59 pm HISTORY: ORDERING SYSTEM PROVIDED HISTORY: possible aspiration pneumonia, TECHNOLOGIST PROVIDED HISTORY: Illness/Other Reason for exam: possible aspiration pneumonia Cancer History: Unknown Surgery, RadiationHistory: Yes Encounter Type: Initial Additional signs and symptoms: ORDERING SYSTEM PROVIDED DIAGNOSIS CODES: A41.9 Sepsis, due to unspecified organism, unspecified whether acute organ dysfunction present ([facility]) J69.0 Aspiration pneumonia, unspecified aspiration pneumonia type, unspecified laterality, unspecified part of lung ([facility]) T14.8XXA Wound infection L08.9 Wound infection Z96.0 [...] No focal areas of consolidation are noted. [facility] Interface, Rad In Fu ji Speechq - 02/12/2020 [...] organism, unspecified whether acute organ dysfunction present ([facility]) J69.0 Aspiration pneumonia, unspecified aspiration pneumonia type, unspecified laterality, unspecified part of lung ([facility]) T14.8XXA Wound infection L08.9 Wound infection Z96.0 [...] infiltrates. Grossly no consolidation. Workstation ID: [id number] [facility] XR Chest 1 Viewon 01-22-2020 1. Right arm PICC wh ich extends superiorly into the internal jugular vein. Recommend retraction by at least 8 cm followed by repositioning into the SVC. 2. Limited study but no definite acute cardiopulmonary process. [facility]/c Workstation ID: [id number] [facility] EXAMINATION: CHEST RADIOGRAPH HISTORY: Confirm placement for existing PICC line Injury/Trauma or Illness?:Illness/Other How long have you had these symptoms (acute/chronic)?:Acute Reason for exam?:Confirm placement for existing PICC line History of cancer?:Unknown Surgeries, chemotherapy, or radiation?:Yes T82.898A Occlusion of peripherally inserted central catheter (PICC) line, initial encounter ([facility]) COMPARISON: Chest 10/21/2019. TECHNIQUE: An AP radiograph [...] thoracic spine with Marrufo rods in place. [facility] Interface, Rad In Fu ji Speechq - 01/22/2020 6:46 PM EDT EXAMINATION: CHEST RADIOGRAPH HISTORY: Confirm placement for existing PICC line Injury/Trauma or Illness?:Illness/Other How long have you had these symptoms (acute/chronic)?:Acute Reason for exam?:Confirm placement for existing PICC line History of cancer?:Unknown Surgeries, chemotherapy, or radiation?:Yes T82.898A Occlusion of peripherally inserted central catheter (PICC) line, initial encounter ([facility]) COMPARISON: Chest 10/21/2019. TECHNIQUE: An AP radiograph [...] study but no definite acute cardiopulmonary process. [facility] Workstation ID: [id number] [facility] Basic Metabolic Panelon 10-01 Anion gap [Moles/Vol] 15 mmol/L 10 - 2 0 mmol/L [facility] Calcium [Mass/Vol] 9.1 mg/dL 8.4 - 10. 2 mg/dL [facility] Chloride [Moles/Vol] 100 mmol/L 98 - 10 8 mmol/L [facility] Creatinine [Mass/Vol] 0.28 mg/dL Low 0.40 - 1.10 [facility] GFR/1.73 sq M predicted among non-blacks MDRD (S/P/Bld) [Vol rate/Area] The eGFR should be used for monitoring renal function only and not for medication dosing. [facility] GFR/1.73 sq M.predicted CKD-EPI (S/P/Bld) [Vol rate/Area] 159 >=60 mL/min/1.73 m2 [facility] Glucose [Mass/Vol] 117 mg/dL High 65 - 99 mg/dL [facility] HCO3 [Moles/Vol] 33 mmol/L High 21 - 32 mmol/L [facility] Interpretation and review of laboratory results Abnormal [facility] Potassium [Moles/Vol] 3.2 mmol/L Low 3.5 - 5.1 mmol/L [facility] Sodium [Moles/Vol] 145 mmol/L 135 - 145 mmol/L [facility] Urea nitrogen [Mass/Vol] 10 mg/dL 8 - 25 mg/dL [facility] Urea nitrogen/Creatinine [Mass ratio] 35.7 mg/mg High [facility] CBCon 10-23-2019 Erythrocyte distribution width (RBC) [Entitic vol] 14.6 % 11.6 - 14.8 % [facility] Hematocrit (Bld) [Volume fraction] 33.5 % Low 36 - 46 % [facility] Hemoglobin (Bld) [Mass/Vol] 9.4 g/dL Low 12 - 16 g/dL [facility] Interpretation and review of laboratory results Abnormal [facility] MCH (RBC) [Entitic mass] 27.1 pg 26 - 34 pg [facility] MCHC (RBC) [Mass/Vol] 28.1 g/dL Low 31 - 37 g/dL [facility] MCV (RBC) [Entitic vol] 96.5 fL 80 - 100 fL [facility] Nucleated RBC (Bld) [#/Vol] 0.00 10*3/uL [facility] Nucleated RBC/100 WBC (Bld) [Ratio] 0.0 % [facility] Platelet mean volume (Bld) [Entitic vol] 12.5 fL 9 - 15.5 fL [facility] Platelets (Bld) [#/Vol] 183 10*3/uL [facility] Comment on above: Platelets clumped on peripheral smear. Results may be affected RBC (Bld) [#/Vol] 3.47 10*6/uL Low [facility] ealth WBC (Bld) [#/Vol] 10.48 10*3/uL [facility] Comprehensive Metabolic Pane nate 10-23-2019 Albumin [Mass/Vol] 3.3 g/dL 3.2 - 5.2 g/dL [facility] ALP [Catalytic activity/Vol] 125 U/L 40 - 140 U/L [facility] ALT [Catalytic activity/Vol] 22 U/L 0 - 40 U/L [facility] Anion gap [Moles/Vol] 19 mmol/L 10 - 2 0 mmol/L [facility] AST [Catalytic activity/Vol] 31 U/L 0 - 45 U/L [facility] Comment on above: Slightly Hemolyzed Bilirubin [Mass/Vol] mg/dL 0 - 1.3 mg/dL [facility] Calcium [Mass/Vol] 9.3 mg/dL 8.4 - 10. 2 mg/dL [facility] Chloride [Moles/Vol] 109 mmol/L High 98 - 10 8 mmol/L [facility] Creatinine [Mass/Vol] 0.29 mg/dL Low 0.40 - 1.10 [facility] GFR/1.73 sq M predicted among non-blacks MDRD (S/P/Bld) [Vol rate/Area] The eGFR should be used for monitoring renal function only and not for medication dosing. [facility] GFR/1.73 sq M.predicted CKD-EPI (S/P/Bld) [Vol rate/Area] 157 >=60 mL/min/1.73 m2 [facility] Glucose [Mass/Vol] 127 mg/dL High 65 - 99 mg/dL [facility] HCO3 [Moles/Vol] 28 mmol/L 21 - 32 mmol/L [facility] Interpretation and review of laboratory results Abnormal [facility] Potassium [Moles/Vol] 4.8 mmol/L 3.5 - 5.1 mmol/L [facility] Comment on above: Slightly Hemolyzed Protein [Mass/Vol] 6.1 g/dL 6 - 8 g/dL [facility]th Sodium [Moles/Vol] 151 mmol/L High 135 - 145 mmol/L [facility] Urea nitrogen [Mass/Vol] 9 mg/dL 8 - 25 mg/dL [facility] Urea nitrogen/Creatinine [Mass ratio] 31.0 mg/mg High [facility] Urine Aerobic Cultureon 10-01 Bacteria identified Aer cx Nom (Unsp spec) >100,000 CFU/mL Enterococcus faecalis Abnormal [facility] Bacteria identified Aer cx Nom (Unsp spec) >100,000 CFU/mL Pseudomonas aeruginosa Abnormal [facility] Interpretation and review of laboratory results Abnormal [facility] Bacteria identified Aer cx Nom (Unsp spec) >100,000 CFU/mL Enterococcus faecalis Abnormal [facility] Bacteria identified Aer cx Nom (Unsp spec) >100,000 CFU/mL Pseudomonas aeruginosa Abnormal [facility] Interpretation and review of laboratory results Abnormal [facility] Basic Metabolic Panelon 10-01 Anion gap [Moles/Vol] 18 mmol/L 10 - 2 0 mmol/L [facility] Calcium [Mass/Vol] 9.1 mg/dL 8.4 - 10. 2 mg/dL [facility] Chloride [Moles/Vol] 113 mmol/L High 98 - 10 8 mmol/L [facility] Creatinine [Mass/Vol] 0.34 mg/dL Low 0.40 - 1.10 [facility] GFR/1.73 sq M predicted among non-blacks MDRD (S/P/Bld) [Vol rate/Area] The eGFR should be used for monitoring renal function only and not for medication dosing. [facility] GFR/1.73 sq M.predicted CKD-EPI (S/P/Bld) [Vol rate/Area] 149 >=60 mL/min/1.73 m2 [facility] Glucose [Mass/Vol] 91 mg/dL 65 - 99 mg/dL [facility] HCO3 [Moles/Vol] 24 mmol/L 21 - 32 mmol/L [facility] Interpretation and review of laboratory results Abnormal [facility] Potassium [Moles/Vol] 4.5 mmol/L 3.5 - 5.1 mmol/L [facility] Sodium [Moles/Vol] 150 mmol/L High 135 - 145 mmol/L [facility] Urea nitrogen [Mass/Vol] 12 mg/dL 8 - 25 mg/dL [facility] Urea nitrogen/Creatinine [Mass ratio] 35.3 mg/mg High [facility] CBCon 10-22-2019 Erythrocyte distribution width (RBC) [Entitic vol] 14.7 % 11.6 - 14.8 % [facility] Hematocrit (Bld) [Volume fraction] 35.8 % Low 36 - 46 % [facility] Hemoglobin (Bld) [Mass/Vol] 10.1 g/dL Low 12 - 16 g/dL [facility] Interpretation and review of laboratory results Abnormal [facility] MCH (RBC) [Entitic mass] 27.7 pg 26 - 34 pg [facility] MCHC (RBC) [Mass/Vol] 28.2 g/dL Low 31 - 37 g/dL [facility] MCV (RBC) [Entitic vol] 98.1 fL 80 - 100 fL [facility] Nucleated RBC (Bld) [#/Vol] 0.00 10*3/uL [facility] Nucleated RBC/100 WBC (Bld) [Ratio] 0.0 % [facility] Platelet mean volume (Bld) [Entitic vol] 11.9 fL 9 - 15.5 fL [facility] Platelets (Bld) [#/Vol] 213 10*3/uL [facility] Comment on above: Platelets clumped on peripheral smear. Results may be affected RBC (Bld) [#/Vol] 3.65 10*6/uL Low [facility] ealth WBC (Bld) [#/Vol] 9.73 10*3/uL [facility] e[facility] Comment on above: Peripheral smear rev iewed manually MRSA DNA Amplified Probeon 0 10-22-2019 Interpretation and review of laboratory results Normal [facility] MRSA DNA CAMILO+probe Ql (Unsp spec) Negative MRSA NEGATIVE [facility] BMPon 10-21-2019 Anion gap [Moles/Vol] 17 mmol/L 10 - 2 0 mmol/L [facility] Calcium [Mass/Vol] 9.5 mg/dL 8.4 - 10. 2 mg/dL [facility] Chloride [Moles/Vol] 109 mmol/L High 98 - 10 8 mmol/L [facility] Creatinine [Mass/Vol] 0.54 mg/dL 0.40 - 1.10 [facility] GFR/1.73 sq M predicted among non-blacks MDRD (S/P/Bld) [Vol rate/Area] The eGFR should be used for monitoring renal function only and not for medication dosing. [facility] GFR/1.73 sq M.predicted CKD-EPI (S/P/Bld) [Vol rate/Area] 128 >=60 mL/min/1.73 m2 [facility] Glucose [Mass/Vol] 176 mg/dL High 65 - 99 mg/dL [facility] HCO3 [Moles/Vol] 30 mmol/L 21 - 32 mmol/L [facility] Interpretation and review of laboratory results Abnormal [facility] Potassium [Moles/Vol] 3.5 mmol/L 3.5 - 5.1 mmol/L [facility] Sodium [Moles/Vol] 152 mmol/L High 135 - 145 mmol/L [facility] Urea nitrogen [Mass/Vol] 22 mg/dL 8 - 25 mg/dL [facility] Urea nitrogen/Creatinine [Mass ratio] 40.7 mg/mg High [facility] CBC WITH AUTO DIFFERENTIALon 10-21-2019 Basophils (Bld) [#/Vol] 0.11 10*3/uL [facility] Basophils/100 WBC (Bld) 0.7 % [facility] Eosinophils (Bld) [#/Vol] 0.01 10*3/uL [facility] Eosinophils/100 WBC (Bld) 0.1 % [facility] Erythrocyte distribution width (RBC) [Entitic vol] 14.6 % 11.6 - 14.8 % [facility] Hematocrit (Bld) [Volume fraction] 41.9 % 36 - 46 % [facility] Hemoglobin (Bld) [Mass/Vol] 12.6 g/dL 12 - 16 g/dL [facility] Immature granulocytes (Bld) [#/Vol] 0.08 10*3/uL [facility] Immature granulocytes/100 WBC (Bld) 0.50 % [facility] Comment on above: The IG parameter is the percentage of metamyelocytes, myelocytes, and promyelocytes. Interpretation and review of laboratory results Abnormal [facility] Lymphocytes (Bld) [#/Vol] 1.35 10*3/uL [facility] Lymphocytes/100 WBC (Bld) 9.0 % [facility] MCH (RBC) [Entitic mass] 27.3 pg 26 - 34 pg [facility] MCHC (RBC) [Mass/Vol] 30.1 g/dL Low 31 - 37 g/dL [facility] MCV (RBC) [Entitic vol] 90.9 fL 80 - 100 fL [facility] Monocytes (Bld) [#/Vol] 0.61 10*3/uL [facility] Monocytes/100 WBC (Bld) 4.1 % [facility] Neutrophils (Bld) [#/Vol] 12.88 10*3/uL High [facility] Neutrophils/100 WBC (Bld) 85.6 % [facility] Nucleated RBC (Bld) [#/Vol] 0.00 10*3/uL [facility] Nucleated RBC/100 WBC (Bld) [Ratio] 0.0 % [facility] Platelets (Bld) [#/Vol] [facility] Comment on above: Platelets clumped on smear but appear normal. If clinically indicated, please request a citrate platelet count RBC (Bld) [#/Vol] 4.61 10*6/uL [facility] ealth WBC (Bld) [#/Vol] 15.04 10*3/uL [facility] Comment on above: Peripheral smear rev iewed manually Chem 7on 10-21-2019 Anion gap [Moles/Vol] 14 mmol/L 10 - 2 0 mmol/L [facility] Chloride [Moles/Vol] 111 mmol/L High 98 - 10 8 mmol/L [facility] Creatinine [Mass/Vol] 0.29 mg/dL Low 0.40 - 1.10 [facility] GFR/1.73 sq M predicted among non-blacks MDRD (S/P/Bld) [Vol rate/Area] The eGFR should be used for monitoring renal function only and not for medication dosing. [facility] GFR/1.73 sq M.predicted CKD-EPI (S/P/Bld) [Vol rate/Area] 157 >=60 mL/min/1.73 m2 [facility] Glucose [Mass/Vol] 99 mg/dL 65 - 99 mg/dL [facility] HCO3 [Moles/Vol] 29 mmol/L 21 - 32 mmol/L [facility] Interpretation and review of laboratory results Abnormal [facility] Potassium [Moles/Vol] 3.7 mmol/L 3.5 - 5.1 mmol/L [facility] Sodium [Moles/Vol] 150 mmol/L High 135 - 145 mmol/L [facility] Urea nitrogen [Mass/Vol] 20 mg/dL 8 - 25 mg/dL [facility] Urea nitrogen/Creatinine [Mass ratio] 69.0 mg/mg [facility] Hepatic Function Panel (LFT) on 10-21-2019 Albumin [Mass/Vol] 4.2 g/dL 3.2 - 5.2 g/dL [facility] ALP [Catalytic activity/Vol] 153 U/L High 40 - 140 U/L [facility] ALT [Catalytic activity/Vol] 25 U/L 0 - 40 U/L [facility] AST [Catalytic activity/Vol] 18 U/L 0 - 45 U/L [facility] Bilirubin [Mass/Vol] mg/dL 0 - 1.3 mg/dL [facility] Bilirubin.conjugated [Mass/Vol] mg/dL 0 - 0.4 mg/dL [facility] Interpretation and review of laboratory results Abnormal [facility] Protein [Mass/Vol] 7.4 g/dL 6 - 8 g/dL [facility] alth INFLUENZA A,B RAPID MOLECULA Joel 10-21-2019 FLUAV RNA CAMILO+probe Ql (Unsp spec) Not Detected Not Detected [facility] FLUBV RNA CAMILO+probe Ql (Unsp spec) Not Detected Not Detected [facility] Interpretation and review of laboratory results Normal [facility] Test Method: Nucleic Acid Amplification [facility] Lactic Acid, Plasmaon 2019 Interpretation and review of laboratory results Abnormal [facility] Lactate [Moles/Vol] 3.5 mmol/L High 0.6 - 2 mmol/L [facility] Otheron 10-21-2019 Extra Tube Hold for add-ons. [facility] Comment on above: Auto resulted. Reflex Lactic Acid, Plasmaon 10-21-2019 Interpretation and review of laboratory results Normal [facility] Lactate [Moles/Vol] 1.5 mmol/L 0.6 - 2 mmol/L [facility] URINALYSISon 10-21-2019 Bacteria Auto Ql (U) Rare Abnormal None Se en /hpf [facility] Bilirubin Ql (U) Negative Negative [facility] th Calcium oxalate crystals Computer assisted (U) [#/Area] Rare Abnormal None Seen /hpf [facility] Clarity Refractometry automated (U) Cloudy Abnormal Clear [facility] Color (U) Yellow Colorless, Yellow [facility] Glucose Auto test strip (U) [Mass/Vol] Negative Negative mg/dL [facility] Hemoglobin Auto test strip Ql (U) Negative Negative [facility] Interpretation and review of laboratory results Abnormal [facility] Ketones (U) [Mass/Vol] Negative Negat ivan mg/dL [facility] Leukocyte esterase Auto test strip Ql (U) Large Abnormal Negative [facility] h Mucus Auto (Urine sed) [#/Area] Few Abnormal None Seen, Rare /lpf [facility] Nitrite Auto test strip Ql (U) Negative Negative [facility] pH (U) 5.0 [pH] [facility] Protein (U) [Mass/Vol] 100 Abnormal Negat ivan mg/dL [facility] RBC Auto (Urine sed) [#/Area] 47 High [facility] Specific gravity (U) [Rel density] 1.032 High [facility] Urobilinogen (U) [Mass/Vol] <2.0 <2.0 mg/dL [facility] WBC Auto (Urine sed) [#/Area] 140 High [facility] Microscopic examinat ion is performed on all urinalysis samples and only positive findings are reported. The test for blood on the chemical analytic portion of urinalysis may also be positive due to hemoglobinuria and myoglobinuria and if red blood cells are present they are quantified by microscopic examination. [facility] XR Chest 1 Viewon 10-21-2019 Marked scoliotic curvature of the thoracic spine. No definite dense focal consolidation is seen. However, please note this is a limited examination due to marked scoliosis. If clinically indicated, please consider a chest CT for better evaluation. [place] Workstation ID: [id number] [facility] Interface, Rad In Fu ji Speechq - [...] consider a chest CT for better evaluation. [place] Workstation ID: [id number] [facility] EXAMINATION: XR CHES T PA/AP 10/21/2019 3:02 [...] consolidation, pneumothorax, or pleural effusion is seen. [facility] Imm/Pathon 09-25-2019 Bacteria identified Cx Nom (Bld) No Growth After 5 Days [facility] Imm/Pathon 09-24-2019 Bacteria identified Cx Nom (Bld) [facility] Pot[facility]-2019 Interpretation and review of laboratory results Normal [facility] Potassium [Moles/Vol] 4.3 mmol/L 3.5 - 5.1 mmol/L [facility] Comment on above: Slightly Hemolyzed Sputum Aerobic Cultureon Bacteria identified Aer cx Nom (Sput) Rare Growth Normal Respiratory Fang [facility] Bacteria identified Aer cx Nom (Sput) Moderate Growth Pseudomonas aeruginosa Abnormal [facility] Interpretation and review of laboratory results Abnormal [facility] Microscopic observation Gram stain Nom (Sput) Few Epithelial Cells [facility] Microscopic observation Gram stain Nom (Sput) Moderate WBC [facility] Microscopic observation Gram stain Nom (Sput) Few Mixed Fang [facility] Upper Respiratory Aerobic Cu ltureon 09-23-2019 Bacteria identified Aer cx Nom (Nose) Light Growth Normal Respiratory Fang [facility] Bacteria identified Aer cx Nom (Nose) Moderate Growth Pseudomonas aeruginosa Abnormal [facility] Bacteria identified Aer cx Nom (Nose) Heavy Growth Enterobacter cloacae complex Abnormal [facility] Interpretation and review of laboratory results Abnormal [facility] Microscopic observation Gram stain Nom (Unsp spec) Many Mixed Fang [facility] Microscopic observation Gram stain Nom (Unsp spec) Few Bronchial Epithelial Cells [facility] Microscopic observation Gram stain Nom (Unsp spec) Few Epithelial Cells [facility] Microscopic observation Gram stain Nom (Unsp spec) Moderate WBC [facility] Urine Aerobic Cultureon 08-31 Bacteria identified Aer cx Nom (Unsp spec) >100,000 CFU/mL Enterococcus faecalis Abnormal [facility] Bacteria identified Aer cx Nom (Unsp spec) 50,000-100,000 CFU/mL Pseudomonas aeruginosa Abnormal [facility] Interpretation and review of laboratory results Abnormal [facility] Basic Metabolic Panelon 08-31 Anion gap [Moles/Vol] 17 mmol/L 10 - 2 0 mmol/L [facility] Calcium [Mass/Vol] 9.1 mg/dL 8.4 - 10. 2 mg/dL [facility] Chloride [Moles/Vol] 98 mmol/L 98 - 10 8 mmol/L [facility] Creatinine [Mass/Vol] 0.34 mg/dL Low 0.4 - 1.1 mg/dL [facility] GFR/1.73 sq M predicted among non-blacks MDRD (S/P/Bld) [Vol rate/Area] The eGFR should be used for monitoring renal function only and not for medication dosing. [facility] GFR/1.73 sq M.predicted CKD-EPI (S/P/Bld) [Vol rate/Area] 149 >=60 mL/min/1.73 m2 [facility] Glucose [Mass/Vol] 90 mg/dL 65 - 99 mg/dL [facility] HCO3 [Moles/Vol] 30 mmol/L 21 - 32 mmol/L [facility] Interpretation and review of laboratory results Abnormal [facility] Potassium [Moles/Vol] 3.0 mmol/L Low 3.5 - 5.1 mmol/L [facility] Sodium [Moles/Vol] 142 mmol/L 135 - 145 mmol/L [facility] Urea nitrogen [Mass/Vol] 6 mg/dL Low 8 - 25 mg/dL [facility] Urea nitrogen/Creatinine [Mass ratio] 17.6 mg/mg [facility] CBCon 09-22-2019 Erythrocyte distribution width (RBC) [Entitic vol] 14.9 % High 11.6 - 14.8 % [facility] Hematocrit (Bld) [Volume fraction] 30.4 % Low 36 - 46 % [facility] Hemoglobin (Bld) [Mass/Vol] 9.5 g/dL Low 12 - 16 g/dL [facility] Interpretation and review of laboratory results Abnormal [facility] MCH (RBC) [Entitic mass] 27.8 pg 26 - 34 pg [facility] MCHC (RBC) [Mass/Vol] 31.3 g/dL 31 - 37 g/dL [facility] MCV (RBC) [Entitic vol] 88.9 fL 80 - 100 fL [facility] Comment on above: Results checked Nucleated RBC (Bld) [#/Vol] 0.00 10*3/uL [facility] Nucleated RBC/100 WBC (Bld) [Ratio] 0.0 % [facility] Platelet mean volume (Bld) [Entitic vol] 12.3 fL 9 - 15.5 fL [facility] Platelets (Bld) [#/Vol] 203 10*3/uL [facility] RBC (Bld) [#/Vol] 3.42 10*6/uL Low [facility] WBC (Bld) [#/Vol] 7.35 10*3/uL [facility] MRSA Culture/Screenon 2019 MRSA isol Org specific cx Ql (Unsp spec) No Methicillin Resistant Staphylococcus (MRSA) Isolated [facility] Urine Aerobic Cultureon 08-31 Bacteria identified Aer cx Nom (Unsp spec) One or more organisms < 10,000 CFU/mL of normal urogenital microbiota. Not processed further. [facility] CBCon 09-21-2019 Erythrocyte distribution width (RBC) [Entitic vol] 15.6 % High 11.6 - 14.8 % [facility] Hematocrit (Bld) [Volume fraction] 31.5 % Low 36 - 46 % [facility] Hemoglobin (Bld) [Mass/Vol] 9.2 g/dL Low 12 - 16 g/dL [facility] Interpretation and review of laboratory results Abnormal [facility] MCH (RBC) [Entitic mass] 27.5 pg 26 - 34 pg [facility] MCHC (RBC) [Mass/Vol] 29.2 g/dL Low 31 - 37 g/dL [facility] MCV (RBC) [Entitic vol] 94.3 fL 80 - 100 fL [facility] Nucleated RBC (Bld) [#/Vol] 0.00 10*3/uL [facility] Nucleated RBC/100 WBC (Bld) [Ratio] 0.0 % [facility] Platelet mean volume (Bld) [Entitic vol] 12.4 fL 9 - 15.5 fL [facility] Platelets (Bld) [#/Vol] 174 10*3/uL [facility] RBC (Bld) [#/Vol] 3.34 10*6/uL Low [facility] WBC (Bld) [#/Vol] 11.68 10*3/uL High [facility] Comprehensive Metabolic Pane nate 09-21-2019 Albumin [Mass/Vol] 3.2 g/dL 3.2 - 5.2 g/dL [facility] ALP [Catalytic activity/Vol] 126 U/L 40 - 140 U/L [facility] ALT [Catalytic activity/Vol] 15 U/L 0 - 40 U/L [facility] Anion gap [Moles/Vol] 17 mmol/L 10 - 2 0 mmol/L [facility] AST [Catalytic activity/Vol] 15 U/L 0 - 45 U/L [facility] Bilirubin [Mass/Vol] mg/dL 0 - 1.3 mg/[facility] Calcium [Mass/Vol] 8.9 mg/dL 8.4 - 10. 2 mg/dL [facility] Chloride [Moles/Vol] 106 mmol/L 98 - 10 8 mmol/L [facility] Creatinine [Mass/Vol] 0.24 mg/dL Low 0.4 - 1.1 mg/dL [facility] GFR/1.73 sq M predicted among non-blacks MDRD (S/P/Bld) [Vol rate/Area] The eGFR should be used for monitoring renal function only and not for medication dosing. [facility] GFR/1.73 sq M.predicted CKD-EPI (S/P/Bld) [Vol rate/Area] 167 >=60 mL/min/1.73 m2 [facility] Glucose [Mass/Vol] 90 mg/dL 65 - 99 mg/dL [facility] HCO3 [Moles/Vol] 28 mmol/L 21 - 32 mmol/L [facility] Interpretation and review of laboratory results Abnormal [facility] Potassium [Moles/Vol] 3.6 mmol/L 3.5 - 5.1 mmol/L [facility] Protein [Mass/Vol] 5.8 g/dL Low 6 - 8 g/dL [facility] Sodium [Moles/Vol] 147 mmol/L High 135 - 145 mmol/L [facility] Urea nitrogen [Mass/Vol] 7 mg/dL Low 8 - 25 mg/dL [facility] Urea nitrogen/Creatinine [Mass ratio] 29.2 mg/mg High [facility] Basic Metabolic Panelon 08-31 Anion gap [Moles/Vol] 17 mmol/L 10 - 2 0 mmol/L [facility] Calcium [Mass/Vol] 9.4 mg/dL 8.4 - 10. 2 mg/dL [facility] Chloride [Moles/Vol] 103 mmol/L 98 - 10 8 mmol/L [facility] Creatinine [Mass/Vol] 0.39 mg/dL Low 0.4 - 1.1 mg/dL [facility] GFR/1.73 sq M predicted among non-blacks MDRD (S/P/Bld) [Vol rate/Area] The eGFR should be used for monitoring renal function only and not for medication dosing. [facility] GFR/1.73 sq M.predicted CKD-EPI (S/P/Bld) [Vol rate/Area] 142 >=60 mL/min/1.73 m2 [facility] Glucose [Mass/Vol] 126 mg/dL High 65 - 99 mg/dL [facility] HCO3 [Moles/Vol] 30 mmol/L 21 - 32 mmol/L [facility] Interpretation and review of laboratory results Abnormal [facility] Potassium [Moles/Vol] 3.5 mmol/L 3.5 - 5.1 mmol/L [facility] Sodium [Moles/Vol] 146 mmol/L High 135 - 145 mmol/L [facility] Urea nitrogen [Mass/Vol] 12 mg/dL 8 - 25 mg/dL [facility] Urea nitrogen/Creatinine [Mass ratio] 30.8 mg/mg High [facility] CBC WITH AUTO DIFFERENTIALon 09-20-2019 Basophils (Bld) [#/Vol] 0.07 10*3/uL [facility] Basophils/100 WBC (Bld) 0.6 % [facility] Eosinophils (Bld) [#/Vol] 0.02 10*3/uL [facility] Eosinophils/100 WBC (Bld) 0.2 % [facility] Erythrocyte distribution width (RBC) [Entitic vol] 15.6 % High 11.6 - 14.8 % [facility] Hematocrit (Bld) [Volume fraction] 35.5 % Low 36 - 46 % [facility] Hemoglobin (Bld) [Mass/Vol] 10.5 g/dL Low 12 - 16 g/dL [facility] Immature granulocytes (Bld) [#/Vol] 0.08 10*3/uL [facility] Immature granulocytes/100 WBC (Bld) 0.70 % [facility] Comment on above: The IG parameter is the percentage of metamyelocytes, myelocytes, and promyelocytes. Interpretation and review of laboratory results Abnormal [facility] Lymphocytes (Bld) [#/Vol] 1.67 10*3/uL [facility] Lymphocytes/100 WBC (Bld) 14.1 % [facility] MCH (RBC) [Entitic mass] 27.5 pg 26 - 34 pg [facility] MCHC (RBC) [Mass/Vol] 29.6 g/dL Low 31 - 37 g/dL [facility] MCV (RBC) [Entitic vol] 92.9 fL 80 - 100 fL [facility] Monocytes (Bld) [#/Vol] 0.70 10*3/uL [facility] Monocytes/100 WBC (Bld) 5.9 % [facility] Neutrophils (Bld) [#/Vol] 9.31 10*3/uL High [facility] Neutrophils/100 WBC (Bld) 78.5 % [facility] Nucleated RBC (Bld) [#/Vol] 0.00 10*3/uL [facility] Nucleated RBC/100 WBC (Bld) [Ratio] 0.0 % [facility] Platelet mean volume (Bld) [Entitic vol] 12.2 fL 9 - 15.5 fL [facility] Platelets (Bld) [#/Vol] 219 10*3/uL [facility] RBC (Bld) [#/Vol] 3.82 10*6/uL Low [facility] WBC (Bld) [#/Vol] 11.85 10*3/uL [facility] INFLUENZA A,B RAPID MOLECULA Joel 09-20-2019 FLUAV RNA CAMILO+probe Ql (Unsp spec) Not Detected Not Detected [facility] FLUBV RNA CAMILO+probe Ql (Unsp spec) Not Detected Not Detected [facility] Interpretation and review of laboratory results Normal [facility] Test Method: Nucleic Acid Amplification [facility] LAMOTRIGINE LEVELon 09-20-19 20 Interpretation and review of laboratory results Normal [facility] Lamotrigine [Mass/Vol] 7.6 [facility] LEGIONELLA ANTIGEN, URINEon 09-20-2019 Interpretation and review of laboratory results Normal [facility] L. pneumophila Ag Ql (U) Negative Negative for Legionella antigen [facility] Comment on above: COMMENT: Results may be affected if patient is on diuretics. INTERPRETATION OF RESULTS: Test detects Legionella pneumophilia serogroup 1 antigens in urine. Legionnaires disease cannot be ruled out since other serogroups and species may also cause disease. MRSA DNA Amplified Probeon 0 09-20-2019 Interpretation and review of laboratory results Normal [facility] MRSA DNA CAMILO+probe Ql (Unsp spec) Negative MRSA NEGATIVE [facility] Magnesium Levelon 09-20-2019 Interpretation and review of laboratory results Normal [facility] Magnesium [Mass/Vol] 2.1 mg/dL 1.6 - 2 .4 mg/dL [facility] POC ARTERIAL BLOOD [facility]EL [facility] Base excess Calc (Bld) [Moles/Vol] 5.3 mmol/L High [facility] Breath rate setting Ventilator synchronized intermittent mandatory 0 [facility] h CO2 (Bld) [Partial pressure] 54.0 mm[Hg] High [facility] HCO3 (Bld) [Moles/Vol] 31.5 mmol/L High 22 - 26 mmol/L [facility] Hematocrit (BldA) [Volume fraction] 29.6 % Low 36 - 46 % [facility] Hemoglobin (Bld) [Mass/Vol] 9.7 g/dL Low 12 - 16 g/dL [facility] Inhaled oxygen concentration 0 % [facility] Inhaled oxygen flow rate 3 L/min [facility] Interpretation and review of laboratory results Abnormal [facility] Oxygen (Bld) [Partial pressure] 79 mm[Hg] Low [facility] pH (Bld) 7.38 [pH] [facility] Result Notification Critical results giv en to: [facility] SaO2% (BldA) [Mass fraction] 96.7 % 92 - 99 % [facility] Tidal volume setting Ventilator 0 [facility] POC Glucoseon 09-20-2019 Glucose [Mass/Vol] 117 mg/dL High 65 - 99 mg/dL [facility] Interpretation and review of laboratory results Abnormal [facility] Respiratory PCR Panelon 08-31 Adenovirus DNA CAMILO+non-probe Ql (Nph) Not Detected Not Detected [facility] B. parapertussis [id number] DNA CAMILO+non-probe Ql (Nph) Not Detected Not Detected [facility] B. pertussis toxin promoter region CAMILO+non-probe Ql (Nph) Not Detected Not Detected [facility] C. pneumoniae DNA CAMILO+non-probe Ql (Nph) Not Detected Not Detected [facility] FLUAV RNA CAMILO+non-probe Ql (Nph) Not Detected Not Detected [facility] FLUBV RNA CAMILO+non-probe Ql (Nph) Not Detected Not Detected [facility] HCoV 229E RNA CAMILO+non-probe Ql (Nph) Not Detected Not Detected [facility] HCoV HKU1 RNA CAMILO+non-probe Ql (Nph) Not Detected Not Detected [facility] HCoV NL63 RNA CAMILO+non-probe Ql (Nph) Not Detected Not Detected [facility] HCoV OC43 RNA CAMILO+non-probe Ql (Nph) Not Detected Not Detected [facility] hMPV RNA CAMILO+non-probe Ql (Nph) Not Detected Not Detected [facility] Interpretation and review of laboratory results Normal [facility] M. pneumoniae DNA CAMILO+non-probe Ql (Nph) Not Detected Not Detected [facility] Parainfluenza virus 1 RNA CAMILO+non-probe Ql (Nph) Not Detected Not Detected [facility] Parainfluenza virus 2 RNA CAMILO+non-probe Ql (Nph) Not Detected Not Detected [facility] Parainfluenza virus 3 RNA CAMILO+non-probe Ql (Nph) Not Detected Not Detected [facility] Parainfluenza virus 4 RNA CAMILO+non-probe Ql (Nph) Not Detected Not Detected [facility] Rhinovirus+Enterovirus RNA CAMILO+non-probe Ql (Nph) Not Detected Not Detected [facility] RSV RNA CAMILO+non-probe Ql (Nph) Not Detected Not Detected [facility] S.PNEUMONIAE URINE ANTIGENon 09-20-2019 Interpretation and review of laboratory results Normal [facility] S. pneumoniae Ag Ql (U) Negative Presumptive Negative for Pneumococcal pneumoniae [facility] Comment on above: A negative result arriaza ggests no current or recent pneumococcal infection. A negative result does not rule out Streptococcus pneumoniae infection since the antigen present in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 Neutrophils #/vol (Bld) 6.12 10*3/uL [facility] Neutrophils/100 WBC (Bld) 65.6 % [facility] Nucleated RBC #/vol (Bld) 0.00 10*3/uL [facility] Nucleated RBC/100 WBC Ratio (Bld) 0.0 % [facility] Platelet mean volume Entitic volume (Bld) 12.1 fL 9 - 15.5 fL [facility] Platelets #/vol (Bld) 216 10*3/uL [facility] RBC #/vol (Bld) 3.85 10*6/uL Low [facility] WBC #/vol (Bld) 9.33 10*3/uL [facility] TISSUE EXAMon 12-05-2018 Case Report Surgical Pathology Report Case: [id number] Authorizing Provider: Rad Luque MD Collected: 12/02/2018 11:43 AM Ordering Location: [facility] Received: 12/02/2018 01:34 PM Hospital Periop Pathologist: Mago Faria MD Specimen: Ischium, Right, RIGHT ISCHIUM CULTURE [facility] Clinical information [id number] yMDAw HEJym8xmBYUsgCHdIxJhNlAy KjFbJutzyBHuTILgTlYyh7po r548gSNcu7msAAOgVpP3pYXa NUAioMQmA251e9xwz4qbjaAy aCD6OTZuUKD2MKxjfpUixnM7 UNfcaXFkQuV8LMqsmvQjCNou yyMcomEdWsc4UGOhQ768QUN1 vWkit4abGKD2KMSzHWYxOmVm Nk8qnPMcN810ASDlYEQLUQBx qIw4ZTVfjlFmhdPerTXCd794 Z254i5iqWSJdpuXwyOpJryox z3nrD575LYJvxKZednZiAzWz TEUfuQKlnZD1JEXeFJ4tzvxg FsVoLG0wtjonBfPsZH9sbjh1 PGH7HRjzRKIpYbW6BMStiXHc HYOvtMdcCAowh470JNN7SDey l9zbk6zwtYJaJky3VUUgXvDt SehoSXbtf2Iav3cfSUDkrp2h LRB8bSVtmJhwm1A4eXYeEHWo rQNsgvHnCKUdVnR1ESsfOQ1j uy11MZTaKBW8of9ynKDzpEng wbYhgPCgUUpoN7QuVUXvy720 XLWuL6JcQOOff9M2nxOoOiQg BPTkySX7csI9YOTgJBx8lXWi vaC7mxNmbSRxK3mogR24KyDe gTTcN4JxdJ50TdWrqQYpC6Wj xA5oAKQbEF1fbpcev9pzZJT7 GXplFNTxYQP0HoTbHQAcd9Pz yhzaDAVjc6IpM1FjvGuiK64u oBoaW21oEIXumIvzgZ0cwIqf aB0wKmXjDjUaRYyseXovuQTn blxmMFxmczIwXGxhbmcxMDMz DSomT2hzXbStCCDxyYvfGAff m1JiMHIrLNZcShKyRbsbnAOq dKWijCb7vIRad1Ygw425GYvt dGlzLiBccGFyfQ== [facility] Pathology report final diagnosis Narrative e8yclEHgPWJynCWoYsWrMYOv MCSzx7pjMISkfUPoZbSwMcTp YkObBhoxuLPrKUTjLnTgm7qe n846dGYfu9bsCEWkQbW7fEEc QEPvwAKiJ175XLWoXFwir0yx c7RdHSQucVYuc1C6VBXUytol eTn2jJpkD02ux6H4ByqoC2wo XZAsURJjZ3HqHH2wMDCgTbf6 FFX0WZC4MAEbKEAlS9XnZH2m SMRfkXOfCIxrbqXiVbVcH8Um QT84JWcqoIXdDqFgI633JMF3 zLwlx9ylUTF0LGPeUDMaAjZr Wq6bgMXmK510PGDsDXQYGEPn wEc8XAZbhdNrctZzaCHNz918 O752v2hzRJCbacMrbQyCpzfd q0ihS738OSIebROphmItRyDl UZUxoJIycQH4BVFyPF6azyuo RyFiVU8qqxjfKlHeUX5nkdx6 OJA5NLzwMAAaGyN3LPBbaOXq YRXhqLeiDEage601ULF3IZbs m7mpo5kviCFkJqy9NMLpVyOt YfoaTGtqu9Yuf5oxOPMogu2n BTF8yBHewMszz2I7fMJkDPUx iIXktuOsSMOkla54qQGreQEu cIJrnl1bacDzsFOqyKIkSRK1 cHNocnRuXGZldDRcYWVuZGRv B2akTyAdquDlE1abN5VcNPAr TJVvRXVlEsMklxItc1Inq3Ys ePNypVj7r6qbUOFrIWDsaTga p8wuHLO1OBGwH4R8eFAjw7xa DAeiLFWexCF1zyxsMVflNZVl ntR3dcypBYbjZBFxtDY6bxL8 IQXqrQJxA2KseX0aGNMiFVdy AHZrjmg6LrSxGo0pvRUguFZw b4ZsvTCfFYukN48iq640KFGz mvVzJ2nihRCbsgiuyMVkrltr HPgkdqI9ALUhUPTvVXzwRGVn XGZzMjBcbGFuZzEwMzNcaGlj dEuqOBwwFqQbKNXqOKagO7lm ZjBcZnMyMFxwYXJccGFyZFxz c8OooyHvtEckYTEfTWe2yuSg jdguxhl3nMQvpFegIVRtoClv mO3sPyTzLaFqKDazfXVandle MVxmczIyXGxhbmcxMDMzXGhp C8leGmYtHFDsdBunAYmyt4Am XGYxXGNmMlxmczIyXGIgUmln pANgoIQyoDs1iTBvr65aCOUo jP6bz3tzqYgakQ4gJgTeVcSc TbhvXQ8yKGfrrIDtGFAoDKFz F7itWzTedY4gvFprJUszXkXi ZnMyMlxsdHJjaFxiIDpccGxh sJ0rGgQpFgFiNZbiJK6eCPfb hJHrBAUxCJIdM7clRsKlfV5v aFxmMVxjZjNcZnMyMFxsdHJj eLvuMFRhpXagHaWmlRkkbE5d ZjBcZnMyNFxwbGFpblxmMVxm crBrBEzssuq3NKhsX0ooNzMc VJWumXphGPpib9QcOHIyFDHe GmmgqxWmQTv1cnWsTIIsY1rn e35wUhGki5Uga038XFfubClx LlxwbGFpblxmMVxmczIyXGxh xaxsMXFlRWunN9oaSrVqAMDa eHjuSEaif6ZbDKZoTNCtIosx czIyXGJccGFyIEJlbmlnbiBz q1A5CKIiw5Y3XL4aqFrhjD0d HgElAjDsXUmxGU8uZSPmF0zs lYPsHITyNRHhK7boFrPxlT0n aFxmMFxmczIwXHBhclxwYXJ9 [facility] Pathology report gross observation Narrative t3efwJQmYYGqfWZkBuIsBUSu MFLgk3uaUYYohDIgWvEwJpXx XrIgCzmteIBdYLZhFqEum6uo f737pUQen1jfAIOdMsW4iBQb JQPvlUMfJ204IREbGFkzxt2g IK7vBHGjkERji9W8HWMJodpe zSd9d0pqKmNnUgL3eTNxBSjv G1vhwfCxuIIySCNnUVs3vF07 EWYqfX1bgEZnQHxtazRlSUgx mbDkjwEiJkb6HRDpI8fiTKEz JAJpY6FlER7dVFLeQzi5OOK3 BII5MPGfXARjHRzpduPcjnA7 CAgqhBVdYqN6SLh3t6oitIle TYOcEFA8h7oaIIwkukBwJQ3b zc4ffBx9x6kykdLsTRHaSQUc qGXIFJJwX6OxhWriNa6dmHh7 cVqqGwuoFZB8Vce8DN1but39 jak4kJdpAIPbjyrmNiQ7OOll FEXuatihYJr8FEhcQEFirYuo MFxtYXJncjcyMFxtYXJndDE0 YZNfhEYdN3FpVHQpXTogYWWs owg4HkDcTq3xnUWfmSBlor9r xa91FFW6z0EvfEvlDPS3OIG0 TlNnEl6asIHxWPRoAX7mOoRm qGHfILSgnm51eMopBAucqkXd qE7zNgDwDGGurJTeLLPhIQWk N0hrCwBvjlBiQ7uoQ8OtWRBj RYQpHMPhWbOsnxRbc9Wge6Yp jYZmdMr3q5lyTLTqPNCbgRlb g5rsGIG1AOLkI9A9iXBgd5ck YWdxDCJgrEP8gkxqYUzoIGWw rnH2mnwcLUlwOAMlsRR3jmN6 PNBufKHeA5UymW2gQOOzJHzo XKEldpp8CtGgBo0sfSRkfEIr o7WkcCHzZTatW55ej963MLJe gkWkV9mfmFUlnsfdiUImzzku MFxmczIwXHFsXHBsYWluXGYw DDFoVyOuiWfxiW6kQpBhSpDp MOerVE8jUIDzD0dwgPWfOTAu AGXbU7veVqNgyD0dwAwtBXxm ZjFcZnMyMFxsdHJjaCBSZWNl rSSgGUIywcOwhFAzkObfsG7l HhJlNoPoRQWrkxQlr6Oll2Vf cHBxfWc8SZL6Ub2tsJInAFUx vwZfu2IbINablqOuoDyqbP6q JiEoZsYxOXxaOW0oCUCzI9ba hKYtVVWdUXHhL6xcWuWqfS7o aFxmMVxjZjFcZnMyMFxsdHJj iGDrSCVivATpGONheJhwcA9r JiRqSiZxFDxkNU2lMGPhX9ew eNXkSWBkRWMuA6qvXhUgrZ0y sDkqDSwmMdNsXtZhTMghfv30 QHJ6s1ravCQmDQxdTclqnBIm boD7AVjJLRXRVGdAPxHwIV8b PUxJTktCRUdJTnwzODAwMXww sUPGLDeIP7v5ILJHAN5jURpq Cjx9RU61FERlGJSmiKQhGVsj J175CVThZEapCNYjXIXaHdDy bGFuZzEwMzNcaGljaFxmMVxk ScVfBGDkURjeE4ryJeNkG2Un VJYzXjQgaARgtJJkuLARv6Vz cnRzLCBNZWxpbmRhIFJccGxh rC9vEhAgNvQeEYjjQI2fMGUo D9ldeAYhOSPdFMDyB1jfBxHh kU4ofFfcHXodAcVjUaLbGGvc vw93UZX1m6zksSWoURtiLwls uVDhkqJ6HNcDTBMNXQcOBkLm SQ6uBTfOPezDLrA3UdobEJO8 TYiTOaxGLqd2tEUULEcoHkin HRR8vWB5g3gssWUjg7r3VFpv EBX9tCnieOQwehggJKabccGx PRjgasruMJTbLEsbJ9vwAsXu CDJsjUylETriw9CuMFRzCLAx GHyfgtHdHXw2piZoFWVcQG2a INOtr0yaoyL2NEMgCiaveXBt msfzIqefbmMxORYbK8c9WAuf A6jdhB7xhVxhtB3zErCnMaQd XWirHP4jMZPtL2gbrDKkPEOq TKLeJ6rwAjIrzE5xfBvzTSee ZjFcZnMyMFxsdHJjaCAiXHBs YWluXGYyXGZzMjAgIGFyZSB0 xQFoLTOutsDqW5SjGMGseMeb Z0JqYW3mTXLkKN4vlUTfdRHu KVPvh4Z5xTUpBIXekTWpBYE4 VLLsv7D2HRFxbbVpVf7dUAuq Dc1aKOwrHP81YMqkGY95XUFp ZSntXPOhX9LwQ1G1LJ4pLYGu pEZOLtIaDVYkU7ZlS1zieCBz JePdWOYdfpwuBTJwT8hNS4WL P4uhFMPvmRVtCKSnekSXms1f qwMfaRFgzN8weLgexdHeHPUs o7HuZHMcVZN6PHNpjeGlu1iw YOURFLRfm6Hdz5LvHW8fcWd2 ZOjrUIOqFMS1RM5tSX83YJ8q aXEYsZUqseZPa5DcZIVtnZAx JfZyOOAYRTA4HqVpVPotKMG5 [facility] Pathology report microscopic observation Narrative Other stain u6izhUGaBVFhvPZeCmJmGEMb XSFmq3pnCCSwsPUzNwKlVtCn SlNjFdgiyQKeXYFbOvIak2zz s492iLLin6epHJCtVyJ3sHQw EODwoSQvG646QBAiUKjbi3vw c7PqHETbfEMac7P0BSRGqzyt gBh6nVgsW18yu3H3VkowL9sp LZTbXFPbO7KdYO9xCFIbHql1 XRE1JON7XBIfFJTsF2NwFQ0f BCJvsPFsTOg3q2smjYhrMQBg VLU7u1yyJKjpdgIfAE4mad4n uPi9b2yxmtCbJVNuVBYrxFZB UZKfN6CyzSeiCp8wcHd6tPwr KdeuTCV7Uly6AC1rvx19mob8 iDcgLBFfcshlUbA8IDshPLGa myvcRYc3KIryEBPsqNQ1LHFt lGHeT9BcFSRuTZ9ewhz4LQX1 CDkdENJdKbI9ISWtyXOiPFDc aOwjJFnoh489OBA0QmTlKB2x [id number] WhDaCIOylt6hgUMfTWydk8Cd UJF2sqU6pRLptMDgBNFgEH28 Sncth0TjWmhyNRD4RWJhnyIn w4Flu0lnTdYhftKuU5gfJ0Ie YNAyCYQgZYVuDeFiktCqk4Su t5SftBXitRm0v6tiPZWaRMHk eAyvi7wzJVO0EYIlV2M8oFLp r6vxNAlgNGFboAO8pmP5RWWy zLXkL1DaaB3lPFQaTT1qrls2 k5dpUPB5FZrpMYDxBxJ3xfB8 XYLdxRVjAXJnxCdvGEobe400 PSO3QaWhXDTce7SwF8KjpSwq C95fzQbbB90nWOVuzPcttY4x vEyiuE8hByOeOdQqCPkxxYwg bGFpblxmMVxmczIwXGxhbmcx JRGbNDngS5oiYlVuRMBwdTsh TDoyy6TeNSLgJPUpCcVtHUdt nc6sQ44olWObAGgfcYixUKRo u39eeTTznODkMi3nmQRnCxgf YXJ9 [facility] Basic Metabolic Panelon Anion gap molar conc 16 mmol/L 10 - 20 mmol/L [facility] Calcium mass conc 9.3 mg/dL 8.4 - 10.2 mg/dL [facility] Chloride molar conc 98 mmol/L 98 - 108 mmol/L [facility] Creatinine mass conc 0.26 mg/dL Low 0.4 - 1 .1 mg/dL [facility] GFR/1.73 sq M predicted among non-blacks MDRD vol rate/area (S/P/Bld) The eGFR should be used for monitoring renal function only and not for medication dosing. [facility] GFR/1.73 sq M.predicted CKD-EPI vol rate/area (S/P/Bld) 164 >=60 mL/min/1.73 m2 [facility] Glucose mass conc 145 mg/dL High 65 - 99 mg/dL [facility] HCO3 molar conc 32 mmol/L 21 - 32 mmol/L [facility] Interpretation and review of laboratory results Abnormal [facility] Potassium molar conc 4.4 mmol/L 3.5 - 5 .1 mmol/L [facility] Sodium molar conc 142 mmol/L 135 - 145 mmol/L [facility] Urea nitrogen mass conc 11 mg/dL 8 - 25 mg/dL [facility] Urea nitrogen/Creatinine mass ratio 42.3 mg/mg High [facility] CBC WITH AUTO DIFFERENTIALon 12-04-2018 Basophils #/vol (Bld) 0.07 10*3/uL [facility] Basophils/100 WBC (Bld) 0.8 % [facility] Eosinophils #/vol (Bld) 0.15 10*3/uL [facility] Eosinophils/100 WBC (Bld) 1.8 % [facility] Erythrocyte distribution width Entitic volume (RBC) 14.2 % 11.6 - 14.8 % [facility] Hematocrit Volume Fraction (Bld) 34.6 % Low 36 - 46 % [facility] Hemoglobin mass conc (Bld) 10.6 g/dL Low 12 - 16 g/dL [facility] Immature granulocytes #/vol (Bld) 0.06 10*3/uL [facility] Immature granulocytes/100 WBC (Bld) 0.70 % [facility] Comment on above: The IG parameter is the percentage of metamyelocytes, myelocytes, and promyelocytes. Interpretation and review of laboratory results Abnormal [facility] Lymphocytes #/vol (Bld) 2.05 10*3/uL [facility] Lymphocytes/100 WBC (Bld) 24.8 % [facility] MCH Entitic mass (RBC) 29.0 pg 26 - 34 pg [facility] MCHC mass conc (RBC) 30.6 g/dL Low 31 - 37 g/dL [facility] MCV Entitic volume (RBC) 94.8 fL 80 - 100 fL [facility] Monocytes #/vol (Bld) 0.77 10*3/uL [facility] Monocytes/100 WBC (Bld) 9.3 % [facility] Neutrophils #/vol (Bld) 5.17 10*3/uL [facility] Neutrophils/100 WBC (Bld) 62.6 % [facility] Nucleated RBC #/vol (Bld) 0.00 10*3/uL [facility] Nucleated RBC/100 WBC Ratio (Bld) 0.0 % [facility] Platelet mean volume Entitic volume (Bld) 11.9 fL 9 - 15.5 fL [facility] Platelets #/vol (Bld) 187 10*3/uL [facility] RBC #/vol (Bld) 3.65 10*6/uL Low [facility] WBC #/vol (Bld) 8.27 10*3/uL [facility] Basic Metabolic Panelon 04-0 Anion gap molar conc 12 mmol/L 10 - 20 mmol/L [facility] Calcium mass conc 9.1 mg/dL 8.4 - 10.2 mg/dL [facility] Chloride molar conc 103 mmol/L 98 - 108 mmol/L [facility] Creatinine mass conc 0.25 mg/dL Low 0.4 - 1 .1 mg/dL [facility] GFR/1.73 sq M predicted among non-blacks MDRD vol rate/area (S/P/Bld) The eGFR should be used for monitoring renal function only and not for medication dosing. [facility] GFR/1.73 sq M.predicted CKD-EPI vol rate/area (S/P/Bld) 166 >=60 mL/min/1.73 m2 [facility] Glucose mass conc 137 mg/dL High 65 - 99 mg/dL [facility] HCO3 molar conc 35 mmol/L High 21 - 32 mmol/L [facility] Interpretation and review of laboratory results Abnormal [facility] Potassium molar conc 4.0 mmol/L 3.5 - 5 .1 mmol/L [facility] Sodium molar conc 146 mmol/L High 135 - 145 mmol/L [facility] Urea nitrogen mass conc 11 mg/dL 8 - 25 mg/dL [facility] Urea nitrogen/Creatinine mass ratio 44.0 mg/mg High [facility] Blood Culture Aerobic/Anaero bicon 12-03-2018 Bacteria identified Cx Nom [facility]Bld) [facility]) [facility] WITH AUTO DIFFERENTIALon 12-03-2018 Basophils #/vol (Bld) 0.07 10*3/uL [facility] Basophils/100 WBC (Bld) 0.8 % [facility] Eosinophils #/vol (Bld) 0.14 10*3/uL [facility] Eosinophils/100 WBC (Bld) 1.7 % [facility] Erythrocyte distribution width Entitic volume (RBC) 14.1 % 11.6 - 14.8 % [facility] Hematocrit Volume Fraction (Bld) 35.9 % Low 36 - 46 % [facility] Hemoglobin mass conc (Bld) 10.4 g/dL Low 12 - 16 g/dL [facility] Immature granulocytes #/vol (Bld) 0.06 10*3/uL [facility] Immature granulocytes/100 WBC (Bld) 0.70 % [facility] Comment on above: The IG parameter is the percentage of metamyelocytes, myelocytes, and promyelocytes. Interpretation and review of laboratory results Abnormal [facility] Lymphocytes #/vol (Bld) 2.03 10*3/uL [facility] Lymphocytes/100 WBC (Bld) 24.5 % [facility] MCH Entitic mass (RBC) 29.1 pg 26 - 34 pg [facility] MCHC mass conc (RBC) 29.0 g/dL Low 31 - 37 g/dL [facility] MCV Entitic volume (RBC) 100.6 fL High 80 - 100 fL [facility] Monocytes #/vol (Bld) 0.76 10*3/uL [facility] Monocytes/100 WBC (Bld) 9.2 % [facility] Neutrophils #/vol (Bld) 5.21 10*3/uL [facility] Neutrophils/100 WBC (Bld) 63.1 % [facility] Nucleated RBC #/vol (Bld) 0.00 10*3/uL [facility] Nucleated RBC/100 WBC Ratio (Bld) 0.0 % [facility] Platelet mean volume Entitic volume (Bld) 11.8 fL 9 - 15.5 fL [facility] Platelets #/vol (Bld) 190 10*3/uL [facility] RBC #/vol (Bld) 3.57 10*6/uL [facility] (Bld) 8.27 10*3/uL [facility] ABORH VERIFICATIONon 019 ABO and Rh group Nom (Bld) A Positive [facility] ABO and Rh group Nom (Bld) ABO/Rh Verification [facility] Patient's ABO/Rh is verified. [facility] Basic Metabolic Panelon Anion gap molar conc 16 mmol/L 10 - 20 mmol/L [facility] Calcium mass conc 9.3 mg/dL 8.4 - 10.2 mg/dL [facility] Chloride molar conc 109 mmol/L High 98 - 108 mmol/L [facility] Creatinine mass conc 0.29 mg/dL Low 0.4 - 1 .1 mg/dL [facility] GFR/1.73 sq M predicted among non-blacks MDRD vol rate/area (S/P/Bld) The eGFR should be used for monitoring renal function only and not for medication dosing. [facility] GFR/1.73 sq M.predicted CKD-EPI vol rate/area (S/P/Bld) 158 >=60 mL/min/1.73 m2 [facility] Glucose mass conc 96 mg/dL 65 - 99 mg/dL [facility] H[facility]3 molar conc 32 mmol/L 21 - 32 mmol/L [facility] Interpretation and review of laboratory results Abnormal [facility] Potassium molar conc 4.3 mmol/L 3.5 - 5 .1 mmol/L [facility] Sodium molar conc 153 mmol/L High 135 - 145 mmol/L [facility] Urea nitrogen mass conc 10 mg/dL 8 - 25 mg/dL [facility] Urea nitrogen/Creatinine mass ratio 34.5 mg/mg High [facility] CBC WITH AUTO DIFFERENTIALon 12-02-2018 Basophils #/vol (Bld) 0.06 10*3/uL [facility] Basophils/100 WBC (Bld) 0.9 % [facility] Eosinophils #/vol (Bld) 0.14 10*3/uL [facility] Eosinophils/100 WBC (Bld) 2.1 % [facility] Erythrocyte distribution width Entitic volume (RBC) 14.3 % 11.6 - 14.8 % [facility] Hematocrit Volume Fraction (Bld) 36.0 % 36 - 46 % [facility] Hemoglobin mass conc (Bld) 11.2 g/dL Low 12 - 16 g/dL [facility] Immature granulocytes #/vol (Bld) 0.02 10*3/uL [facility] Immature granulocytes/100 WBC (Bld) 0.30 % [facility] Comment on above: The IG parameter is the percentage of metamyelocytes, myelocytes, and promyelocytes. Interpretation and review of laboratory results Abnormal [facility] Lymphocytes #/vol (Bld) 1.56 10*3/uL [facility] Lymphocytes/100 WBC (Bld) 22.9 % [facility] MCH Entitic mass (RBC) 29.7 pg 26 - 34 pg [facility] MCHC mass conc (RBC) 31.1 g/dL 31 - 37 g/dL [facility] MCV Entitic volume (RBC) 95.5 fL 80 - 100 fL [facility] Monocytes #/vol (Bld) 0.50 10*3/uL [facility] Monocytes/100 WBC (Bld) 7.3 % [facility] Neutrophils #/vol (Bld) 4.54 10*3/uL [facility] Neutrophils/100 WBC (Bld) 66.5 % [facility] Nucleated RBC #/vol (Bld) 0.00 10*3/uL [facility] Nucleated RBC/100 WBC Ratio (Bld) 0.0 % [facility] Platelet mean volume Entitic volume (Bld) 12.1 fL 9 - 15.5 fL [facility] Platelets #/vol (Bld) 202 10*3/uL [facility] RBC #/vol (Bld) 3.77 10*6/uL Low [facility] WBC #/vol (Bld) 6.82 10*3/uL [facility] ECG 12-LEADon 12-02-2018 Atrial Rate 85 BPM [facility] P [place] 5 degrees [facility] P-R Interval 170 ms [facility] Q-T Interval 368 ms [facility] QRS Duration 82 ms [facility] QTC Calculation (Bezet) 437 ms [facility] R [place] 78 degrees [facility] T [place] 22 degrees [facility] Ventricular Rate 85 BPM [facility] th Normal sinus rhythm Normal ECG Confirmed by DWAYNE RUELAS MD ([id number]) on 12/02/2018 7:44:46 AM [facility] POC , Urineon 12-02 HCG ( test) Ql (U) Negative Negative [facility] HCG.beta subunit ( test) Ql (U) Dilute urine specimens, as indicated by a low specific gravity (<1.010) may not contain sales representative adding machines levels of hCG. If is still suspected, a serum test or repeat urine test using a first morning urine specimen should be considered. [facility] Interpretation and review of laboratory results Normal [facility] Type and Screenon 12-02-2018 ABO and Rh group Nom (Bld) A Positive [facility] Blood group antibody screen Ql Negative [facility] Specimen Expires 12/05/2018 23:59 EST [facility] Basic Metabolic Panelon Anion gap molar conc 12 mmol/L 10 - 20 mmol/L [facility] Calcium mass conc 9.1 mg/dL 8.4 - 10.2 mg/dL [facility] Chloride molar conc 103 mmol/L 98 - 108 mmol/L [facility] Creatinine mass conc 0.40 mg/dL 0.4 - 1 .1 mg/dL [facility] GFR/1.73 sq M predicted among non-blacks MDRD vol rate/area (S/P/Bld) The eGFR should be used for monitoring renal function only and not for medication dosing. [facility] GFR/1.73 sq M.predicted CKD-EPI vol rate/area (S/P/Bld) 142 >=60 mL/min/1.73 m2 [facility] Glucose mass conc 134 mg/dL High 65 - 99 mg/dL [facility] HCO3 molar conc 33 mmol/L High 21 - 32 mmol/L [facility] Interpretation and review of laboratory results Abnormal [facility] Potassium molar conc 3.5 mmol/L 3.5 - 5 .1 mmol/L [facility] Sodium molar conc 144 mmol/L 135 - 145 mmol/L [facility] Urea nitrogen mass conc 16 mg/dL 8 - 25 mg/dL [facility] Urea nitrogen/Creatinine mass ratio 40.0 mg/mg High [facility] CBC WITH AUTO DIFFERENTIALon 12-01-2018 Basophils #/vol (Bld) 0.06 10*3/uL [facility] Basophils/100 WBC (Bld) 0.7 % [facility] Eosinophils #/vol (Bld) 0.15 10*3/uL [facility] Eosinophils/100 WBC (Bld) 1.7 % [facility] Erythrocyte distribution width Entitic volume (RBC) 13.7 % 11.6 - 14.8 % [facility] Hematocrit Volume Fraction (Bld) 32.6 % Low 36 - 46 % [facility] Hemoglobin mass conc (Bld) 9.8 g/dL Low 12 - 16 g/dL [facility] Immature granulocytes #/vol (Bld) 0.04 10*3/uL [facility] Immature granulocytes/100 WBC (Bld) 0.40 % [facility] Comment on above: The IG parameter is the percentage of metamyelocytes, myelocytes, and promyelocytes. Interpretation and review of laboratory results Abnormal [facility] Lymphocytes #/vol (Bld) 1.55 10*3/uL [facility] Lymphocytes/100 WBC (Bld) 17.3 % [facility] MCH Entitic mass (RBC) 29.0 pg 26 - 34 pg [facility] MCHC mass conc (RBC) 30.1 g/dL Low 31 - 37 g/dL [facility] MCV Entitic volume (RBC) 96.4 fL 80 - 100 fL [facility] Monocytes #/vol (Bld) 0.54 10*3/uL [facility] Monocytes/100 WBC (Bld) 6.0 % [facility] Neutrophils #/vol (Bld) 6.62 10*3/uL [facility] Neutrophils/100 WBC (Bld) 73.9 % [facility] Nucleated RBC #/vol (Bld) 0.00 10*3/uL [facility] Nucleated RBC/100 WBC Ratio (Bld) 0.0 % [facility] Platelet mean volume Entitic volume (Bld) 11.9 fL 9 - 15.5 fL [facility] Platelets #/vol (Bld) 182 10*3/uL [facility] RBC #/vol (Bld) 3.38 10*6/uL Low [facility] WBC #/vol (Bld) 8.96 10*3/uL [facility] POC Glucoseon 12-01-2018 Glucose mass conc 129 mg/dL High 65 - 99 mg/dL [facility] Interpretation and review of laboratory results Abnormal [facility] Glucose mass conc 137 mg/dL High 65 - 99 mg/dL [facility] Interpretation and review of laboratory results Abnormal [facility] Urine Aerobic Cultureon Bacteria identified Aer cx Nom (Unsp spec) KLEBSIELLA PNEUMONIAE Abnormal [facility] Interpretation and review of laboratory results Abnormal [facility] Basic Metabolic Panelon Anion gap molar conc 12 mmol/L 10 - 20 mmol/L [facility] Calcium mass conc 9.0 mg/dL 8.4 - 10.2 mg/dL [facility] Chloride molar conc 104 mmol/L 98 - 108 mmol/L [facility] Creatinine mass conc 0.31 mg/dL Low 0.4 - 1 .1 mg/dL [facility] GFR/1.73 sq M predicted among non-blacks MDRD vol rate/area (S/P/Bld) The eGFR should be used for monitoring renal function only and not for medication dosing. [facility] GFR/1.73 sq M.predicted CKD-EPI vol rate/area (S/P/Bld) 155 >=60 mL/min/1.73 m2 [facility] Glucose mass conc 114 mg/dL High 65 - 99 mg/dL [facility] HCO3 molar conc 34 mmol/L High 21 - 32 mmol/L [facility] Interpretation and review of laboratory results Abnormal [facility] Potassium molar conc 3.5 mmol/L 3.5 - 5 .1 mmol/L [facility] Sodium molar conc 146 mmol/L High 135 - 145 mmol/L [facility] Urea nitrogen mass conc 13 mg/dL 8 - 25 mg/dL [facility] Urea nitrogen/Creatinine mass ratio 41.9 mg/mg High [facility] Anion gap molar conc 13 mmol/L 10 - 20 mmol/L [facility] Calcium mass conc 9.3 mg/dL 8.4 - 10.2 mg/dL [facility] Chloride molar conc 106 mmol/L 98 - 108 mmol/L [facility] Creatinine mass conc mg/dL Low 0.4 - 1 .1 mg/dL [facility] GFR/1.73 sq M predicted among non-blacks MDRD vol rate/area (S/P/Bld) The eGFR should be used for monitoring renal function only and not for medication dosing. [facility] GFR/1.73 sq M.predicted CKD-EPI vol rate/area (S/P/Bld) >=60 mL/min/1.73 m2 [facility] Comment on above: Unable to calculate; a result component is outside measurable limits. Glucose mass conc 112 mg/dL High 65 - 99 mg/dL [facility] HCO3 molar conc 36 mmol/L High 21 - 32 mmol/L [facility] Interpretation and review of laboratory results Abnormal [facility] Potassium molar conc 3.6 mmol/L 3.5 - 5 .1 mmol/L [facility] Sodium molar conc 151 mmol/L High 135 - 145 mmol/L [facility] Urea nitrogen mass conc 14 mg/dL 8 - 25 mg/dL [facility] Urea nitrogen/Creatinine mass ratio [facility] Comment on above: Unable to calculate; a result component is outside measurable limits. Anion gap molar conc 10 mmol/L 10 - 20 mmol/L [facility] Calcium mass conc 8.9 mg/dL 8.4 - 10.2 mg/dL [facility] Chloride molar conc 109 mmol/L High 98 - 108 mmol/L [facility] Creatinine mass conc 0.40 mg/dL 0.4 - 1 .1 mg/dL [facility] GFR/1.73 sq M predicted among non-blacks MDRD vol rate/area (S/P/Bld) The eGFR should be used for monitoring renal function only and not for medication dosing. [facility] GFR/1.73 sq M.predicted CKD-EPI vol rate/area (S/P/Bld) 142 >=60 mL/min/1.73 m2 [facility] Glucose mass conc 112 mg/dL High 65 - 99 mg/dL [facility] HCO3 molar conc 36 mmol/L High 21 - 32 mmol/L [facility] Interpretation and review of laboratory results Abnormal [facility] Potassium molar conc 3.8 mmol/L 3.5 - 5 .1 mmol/L [facility] Sodium molar conc 151 mmol/L High 135 - 145 mmol/L [facility] Urea nitrogen mass conc 17 mg/dL 8 - 25 mg/dL [facility] Urea nitrogen/Creatinine mass ratio 42.5 mg/mg High [facility] CBCon 11-30-2018 Erythrocyte distribution width Entitic volume (RBC) 14.3 % 11.6 - 14.8 % [facility] Hematocrit Volume Fraction (Bld) 37.7 % 36 - 46 % [facility] Hemoglobin mass conc (Bld) 11.1 g/dL Low 12 - 16 g/dL [facility] Interpretation and review of laboratory results Abnormal [facility] MCH Entitic mass (RBC) 29.5 pg 26 - 34 pg [facility] MCHC mass conc (RBC) 29.4 g/dL Low 31 - 37 g/dL [facility] MCV Entitic volume (RBC) 100.3 fL High 80 - 100 fL [facility] Nucleated RBC #/vol (Bld) 0.00 10*3/uL [facility] Nucleated RBC/100 WBC Ratio (Bld) 0.0 % [facility] Platelet mean volume Entitic volume (Bld) 12.1 fL 9 - 15.5 fL [facility] Platelets #/vol (Bld) 197 10*3/uL [facility] RBC #/vol (Bld) 3.76 10*6/uL [facility] #/[facility] (Bld) 10.65 10*3/uL [facility] alth LAMOTRIGINE LEVELon 12-01-19 19 Interpretation and review of laboratory results Normal [facility] Lamotrigine mass conc 13.8 [facility] Stat [facility] POC Glucoseon 11-30-2018 Glucose mass conc 113 mg/dL High 65 - 99 mg/dL [facility] Interpretation and review of laboratory results Abnormal [facility] Glucose mass conc 102 mg/dL High 65 - 99 mg/dL [facility] Interpretation and review of laboratory results Abnormal [facility] Glucose mass conc 107 mg/dL High 65 - 99 mg/dL [facility] Interpretation and review of laboratory results Abnormal [facility] Vancomycin Level, [place] 0 11-30-2018 Interpretation and review of laboratory results Normal [facility] Vancomycin trough mass conc 11.0 ug/mL [facility] B12/Folateon 11-29-2018 Cobalamin (Vitamin B12) mass conc 929 pg/mL 232 - 1245 pg/mL [facility] Folate mass conc ng/mL High 3.1 - 17.5 ng/mL [facility] Comment on above: Deficient <2.2 Borderline 2.2 - 3.0 Excessive >17.5 Interpretation and review of laboratory results Abnormal [facility] Basic Metabolic Panelon Anion gap molar conc 10 mmol/L 10 - 20 mmol/L [facility] Creatinine mass conc 0.38 mg/dL Low 0.4 - 1 .1 mg/dL [facility] GFR/1.73 sq M.predicted CKD-EPI vol rate/area (S/P/Bld) 145 >=60 mL/min/1.73 m2 [facility] Glucose mass conc 94 mg/dL 65 - 99 mg/dL [facility] HCO3 molar conc 37 mmol/L High 21 - 32 mmol/L [facility] Potassium molar conc 3.8 mmol/L 3.5 - 5 .1 mmol/L [facility] Sodium molar conc 153 mmol/L High 135 - 145 mmol/L [facility] Urea nitrogen mass conc 18 mg/dL 8 - 25 mg/dL [facility] Urea nitrogen/Creatinine mass ratio 47.4 mg/mg High [facility] Anion gap molar conc 15 mmol/L 10 - 20 mmol/L [facility] Creatinine mass conc 0.36 mg/dL Low 0.4 - 1 .1 mg/dL [facility] GFR/1.73 sq M.predicted CKD-EPI vol rate/area (S/P/Bld) 147 >=60 mL/min/1.73 m2 [facility] Glucose mass conc 102 mg/dL High 65 - 99 mg/dL [facility] HCO3 molar conc 35 mmol/L High 21 - 32 mmol/L [facility] Potassium molar conc 4.5 mmol/L 3.5 - 5 .1 mmol/L [facility] Sodium molar conc 155 mmol/L High 135 - 145 mmol/L [facility] Urea nitrogen/Creatinine mass ratio 44.4 mg/mg High [facility] Anion gap molar conc 14 mmol/L 10 - 20 mmol/L [facility] Calcium mass conc 8.8 mg/dL 8.4 - 10.2 mg/dL [facility] Chloride molar conc 110 mmol/L High 98 - 108 mmol/L [facility] Creatinine mass conc 0.41 mg/dL 0.4 - 1 .1 mg/dL [facility] GFR/1.73 sq M predicted among non-blacks MDRD vol rate/area (S/P/Bld) The eGFR should be used for monitoring renal function only and not for medication dosing. [facility] GFR/1.73 sq M.predicted CKD-EPI vol rate/area (S/P/Bld) 141 >=60 mL/min/1.73 m2 [facility] Glucose mass conc 111 mg/dL High 65 - 99 mg/dL [facility] HCO3 molar conc 37 mmol/L High 21 - 32 mmol/L [facility] Interpretation and review of laboratory results Abnormal [facility] Potassium molar conc 4.1 mmol/L 3.5 - 5 .1 mmol/L [facility] Sodium molar conc 157 mmol/L High 135 - 145 mmol/L [facility] Urea nitrogen/Creatinine mass ratio 39.0 mg/mg High [facility] CBCon 11-29-2018 Erythrocyte distribution width Entitic volume (RBC) 14.3 % 11.6 - 14.8 % [facility] Hematocrit Volume Fraction (Bld) 40.4 % 36 - 46 % [facility] Hemoglobin mass conc (Bld) 11.8 g/dL Low 12 - 16 g/dL [facility] Interpretation and review of laboratory results Abnormal [facility] MCH Entitic mass (RBC) 29.7 pg 26 - 34 pg [facility] MCHC mass conc (RBC) 29.2 g/dL Low 31 - 37 g/dL [facility] MCV Entitic volume (RBC) 101.8 fL High 80 - 100 fL [facility] Nucleated RBC #/vol (Bld) 0.00 10*3/uL [facility] Nucleated RBC/100 WBC Ratio (Bld) 0.0 % [facility] Platelet mean volume Entitic volume (Bld) 12.0 fL 9 - 15.5 fL [facility] Platelets #/vol (Bld) 222 10*3/uL [facility] RBC #/vol (Bld) 3.97 10*6/uL Low [facility] WBC #/vol (Bld) 10.98 10*3/uL [facility] alth CRP, Inflammationon 11-30-19 19 CRP mass conc 5.4 mg/L 0 - 10 mg/L [facility] Interpretation and review of laboratory results Normal [facility] CT CHEST ABDOMEN PELVIS WITH IV CONTRAST ONLYon 11-29-2018 No evidence for acut e abnormality. Extensive thoracolumbar and sacral fusion is seen. Prior cholecystectomy. /[facility] Workstation ID: [id number] [facility] EXAMINATION: CT CHES T ABDOMEN PELVIS WITH [...] and visualized soft tissues appear grossly unremarkable. [facility] Addendum by Anahi Vernon MD on 11/29/2018 2:37 PM ADDENDUM: Partially [...] 11/29/2018 at 2:25 p.m.. Workstation ID: [id number] [facility], [facility] In Fu ji Speechq - 11/29/2018 12:06 AM EDT EXAMINATION: CT CHEST ABDOMEN PELVIS WITH IV CONTRAST ONLY HISTORY: ORDERING SYSTEM PROVIDED HISTORY: Sepsis, TECHNOLOGIST PROVIDED HISTORY: Reason for exam: Sepsis Illness/Other Encounter Type: Initial Additional signs and symptoms: Sepsis ORDERING SYSTEM PROVIDED DIAGNOSIS CODES: A41.9 Sepsis, due to unspecified organism ([facility]) E87.0 Hypernatremia COMPARISON: 11/21/2016. TECHNIQUE: CT examination [...] and sacral fusion is seen. Prior cholecystectomy. /[facility] Workstation ID: [id number] [facility] Metabolic Panelon 11-29-2018 Calcium mass conc 8.8 mg/dL 8.4 - 10.2 mg/dL [facility] Chloride molar conc 110 mmol/L High 98 - 108 mmol/L [facility] GFR/1.73 sq M predicted among non-blacks MDRD vol rate/area (S/P/Bld) The eGFR should be used for monitoring renal function only and not for medication dosing. [facility] Urea nitrogen mass conc 16 mg/dL 8 - 25 mg/dL [facility] Otheron 11-29-2018 Interpretation and review of laboratory results Abnormal [facility] Extra Tube Hold for add-ons. [facility] Comment on above: Auto resulted. POC Glucoseon 11-29-2018 Glucose mass conc 88 mg/dL 65 - 99 mg/dL [facility] Interpretation and review of laboratory results Normal [facility] Reflex Lactic Acid, Plasmaon 11-29-2018 Interpretation and review of laboratory results Normal [facility] Lactate molar conc 1.3 mmol/L 0.6 - 2 mmol/L [facility] Sedimentation Rateon 019 ESR Velocity (Bld) 38 mm/h High [facility] alth Interpretation and review of laboratory results Abnormal [facility] BMPon 11-28-2018 Anion gap molar conc 17 mmol/L 10 - 20 mmol/L [facility] Calcium mass conc 9.5 mg/dL 8.4 - 10.2 mg/dL [facility] Chloride molar conc 104 mmol/L 98 - 108 mmol/L [facility] Creatinine mass conc 0.37 mg/dL Low 0.4 - 1 .1 mg/dL [facility] GFR/1.73 sq M predicted among non-blacks MDRD vol rate/area (S/P/Bld) The eGFR should be used for monitoring renal function only and not for medication dosing. [facility] GFR/1.73 sq M.predicted CKD-EPI vol rate/area (S/P/Bld) 146 >=60 mL/min/1.73 m2 [facility] Glucose mass conc 178 mg/dL High 65 - 99 mg/dL [facility] HCO3 molar conc 38 mmol/L High 21 - 32 mmol/L [facility] Interpretation and review of laboratory results Abnormal [facility] Potassium molar conc 3.6 mmol/L 3.5 - 5 .1 mmol/L [facility] Sodium molar conc 155 mmol/L High 135 - 145 mmol/L [facility] Urea nitrogen mass conc 16 mg/dL 8 - 25 mg/dL [facility] Urea nitrogen/Creatinine mass ratio 43.2 mg/mg High [facility] Blood Gason 11-28-2018 HCO3 molar conc (Bld) 43.6 mmol/L High 24 - 2 8 mmol/L [facility] CBC WITH AUTO DIFFERENTIALon 11-28-2018 Basophils #/vol (Bld) 0.11 10*3/uL [facility] Basophils/100 WBC (Bld) 1.2 % [facility] Eosinophils #/vol (Bld) 0.06 10*3/uL [facility] Eosinophils/100 WBC (Bld) 0.6 % [facility] Erythrocyte distribution width Entitic volume (RBC) 13.9 % 11.6 - 14.8 % [facility] Hematocrit Volume Fraction (Bld) 43.5 % 36 - 46 % [facility] Hemoglobin mass conc (Bld) 12.9 g/dL 12 - 16 g/dL [facility] Immature granulocytes #/vol (Bld) 0.04 10*3/uL [facility] Immature granulocytes/100 WBC (Bld) 0.40 % [facility] Comment on above: The IG parameter is the percentage of metamyelocytes, myelocytes, and promyelocytes. Lymphocytes #/vol (Bld) 2.17 10*3/uL [facility] Lymphocytes/100 WBC (Bld) 23.0 % [facility] MCH Entitic mass (RBC) 29.1 pg 26 - 34 pg [facility] MCHC mass conc (RBC) 29.7 g/dL Low 31 - 37 g/dL [facility] MCV Entitic volume (RBC) 98.2 fL 80 - 100 fL [facility] Monocytes #/vol (Bld) 0.93 10*3/uL High [facility] Monocytes/100 WBC (Bld) 9.8 % [facility] Neutrophils #/vol (Bld) 6.14 10*3/uL [facility] Neutrophils/100 WBC (Bld) 65.0 % [facility] Nucleated RBC #/vol (Bld) 0.00 10*3/uL [facility] Nucleated RBC/100 WBC Ratio (Bld) 0.0 % [facility] Platelet mean volume Entitic volume (Bld) 11.9 fL 9 - 15.5 fL [facility] Platelets #/vol (Bld) 279 10*3/uL [facility] RBC #/vol (Bld) 4.43 10*6/uL [facility] WBC #/vol (Bld) 9.45 10*3/uL [facility] Hematologyon 11-28-2018 Hemoglobin mass conc (Bld) 13.3 g/dL 12 - 16 g/dL [facility] Hepatic Function Panel (LFT) on 11-28-2018 Albumin mass conc 4.2 g/dL 3.2 - 5.2 g/dL [facility] ALP enzyme act/vol 147 U/L High 40 - 140 U/L [facility] ALT enzyme act/vol 22 U/L 0 - 40 U/L [facility] alth AST enzyme act/vol 20 U/L 0 - 45 U/L [facility] alth Bilirubin mass conc mg/dL 0 - 1.3 mg/dL [facility] Bilirubin.conjugated mass conc mg/dL 0 - 0.4 mg/dL [facility] Interpretation and review of laboratory results Abnormal [facility] Protein mass conc 8.0 g/dL 6 - 8 g/dL [facility] INFLUENZA A,B RAPID MOLECULA Joel 11-28-2018 FLUAV RNA CAMILO+probe Ql (Unsp spec) Not Detected Not Detected [facility] FLUBV RNA CAMILO+probe Ql (Unsp spec) Not Detected Not Detected [facility] Interpretation and review of laboratory results Normal [facility] Test Method: Nucleic Acid Amplification [facility] Lactic Acid, Plasmaon 2018 Lactate molar conc 2.9 mmol/L High 0.6 - 2 mmol/L [facility] Metabolic Panelon 11-28-2018 Chloride molar conc 105 mmol/L 98 - 108 mmol/L [facility] Glucose mass conc 175 mg/dL High 65 - 99 mg/dL [facility] Lactate molar conc 2.9 mmol/L High 0.6 - 2 mmol/L [facility] Potassium molar conc 3.6 mmol/L 3.5 - 5 .1 mmol/L [facility] Sodium molar conc 161 mmol/L Critically high 135 - 1 45 mmol/L [facility] Otheron 11-28-2018 Extra Tube Hold for add-ons. [facility] Comment on above: Auto resulted. Interpretation and review of laboratory results Abnormal [facility] Base excess Calculated molar conc (BldV) 16.2 mmol/L High [facility] Breath rate setting Ventilator synchronized intermittent mandatory 0 [facility] Calcium.ionized mass conc 4.4 mg/dL Low 4.5 - 5.3 mg/dL [facility] Carboxyhemoglobin/Hemo globin.total mass fraction (BldA) 2.6 High [facility] Comment on above: Reference Ranges: Suburban Non-smokers:<1.5% Smokers:1.5-5.0% Heavy Smokers:5.0-9.0% CO2 ppres (BldV) 63.4 mm[Hg] High [facility] Hematocrit Volume Fraction (BldA) 40.8 % 36 - 46 % [facility] Inhaled oxygen concentration 0 % [facility] Interpretation and review of laboratory results Abnormal [facility] Methemoglobin/Hemoglob in.total mass fraction (BldA) 0.8 % 0 - 2 % [facility] Oxygen ppres (BldV) 127 mm[Hg] High [facility] ealth Oxygen saturation in Venous blood 99.2 % [facility] Oxyhemoglobin/Hemoglob in.total mass fraction (BldA) 95.9 % 94 - 98 % [facility] pH (BldV) 7.45 [pH] High [facility] Tidal volume setting Ventilator 0 [facility] Critical result acte d upon time of test. Test performed at bedside. [facility] URINALYSISon 11-28-2018 Bacteria Auto Ql (U) Many Abnormal None Se en /hpf [facility] Bilirubin Ql (U) Negative Negative [facility] th Clarity Refractometry automated Nom (U) Cloudy Abnormal Clear [facility] Color Nom (U) Yellow Colorless, Yellow [facility] Glucose Automated test strip mass conc (U) Negative Negative mg/dL [facility] Hemoglobin Automated test strip Ql (U) Negative Negative [facility] Interpretation and review of laboratory results Abnormal [facility] Ketones mass conc (U) Negative Negati ve mg/dL [facility] Leukocyte esterase Automated test strip Ql (U) Small Abnormal Negative [facility] Nitrite Automated test strip Ql (U) Negative Negative [facility] pH (U) 9.0 [pH] High [facility] Protein mass conc (U) 100 Abnormal Negati ve mg/dL [facility] Specific gravity Relative Density (U) 1.020 [facility] Transitional cells Computer assisted #/area (U) <1 [facility] Urobilinogen mass conc (U) <2.0 <2.0 mg/dL [facility] WBC Auto #/area (Urine sed) 6 High [facility] Microscopic examinat ion is performed on all urinalysis samples and only positive findings are reported. The test for blood on the chemical analytic portion of urinalysis may also be positive due to hemoglobinuria and myoglobinuria and if red blood cells are present they are quantified by microscopic examination. [facility] XR Chest 1 Viewon 11-28-2018 Erythrocyte distribution width Ratio (RBC) Severely limited radiograph due to scoliotic curvature and hardware bridging the entire thoracolumbar spine. Mild diffuse haziness of the lungs may be positional. PD/aw Workstation ID: [id number] [facility] EXAMINATION: XR CHES T PA/AP HISTORY: ORDERING [...] lungs may be positional. Bones appear demineralized. [facility] Ernesto, Rad In Fu ji Speechq - 11/28/2018 9:22 [...] may be positional. PD/aw Workstation ID: [id number] [facility] BMPon 10-07-2018 Anion gap molar conc 11 mmol/L 10 - 20 mmol/L [facility] Calcium mass conc 9.5 mg/dL 8.4 - 10.2 mg/dL [facility] Chloride molar conc 112 mmol/L High 98 - 108 mmol/L [facility] Creatinine mass conc 0.33 mg/dL Low 0.4 - 1 .1 mg/dL [facility] GFR/1.73 sq M predicted among non-blacks MDRD vol rate/area (S/P/Bld) The eGFR should be used for monitoring renal function only and not for medication dosing. [facility] GFR/1.73 sq M.predicted CKD-EPI vol rate/area (S/P/Bld) 151 >=60 mL/min/1.73 m2 [facility] Glucose mass conc 97 mg/dL 65 - 99 mg/dL [facility] HCO3 molar conc 37 mmol/L High 21 - 32 mmol/L [facility] Interpretation and review of laboratory results Abnormal [facility] Potassium molar conc 3.4 mmol/L Low 3.5 - 5 .1 mmol/L [facility] Sodium molar conc 157 mmol/L High 135 - 145 mmol/L [facility] Urea nitrogen mass conc 21 mg/dL 8 - 25 mg/dL [facility] Urea nitrogen/Creatinine mass ratio 63.6 mg/mg High [facility] CBC WITH AUTO DIFFERENTIALon 10-07-2018 Basophils #/vol (Bld) 0.06 10*3/uL [facility] Basophils/100 WBC (Bld) 0.7 % [facility] Eosinophils #/vol (Bld) 0.15 10*3/uL [facility] Eosinophils/100 WBC (Bld) 1.8 % [facility] Erythrocyte distribution width Entitic volume (RBC) 14.2 % 11.6 - 14.8 % [facility] Hematocrit Volume Fraction (Bld) 41.4 % 36 - 46 % [facility] Hemoglobin mass conc (Bld) 12.0 g/dL 12 - 16 g/dL [facility] Immature granulocytes #/vol (Bld) 0.03 10*3/uL [facility] Immature granulocytes/100 WBC (Bld) 0.40 % [facility] Comment on above: The IG parameter is the percentage of metamyelocytes, myelocytes, and promyelocytes. Interpretation and review of laboratory results Abnormal [facility] Lymphocytes #/vol (Bld) 2.05 10*3/uL [facility] Lymphocytes/100 WBC (Bld) 24.2 % [facility] MCH Entitic mass (RBC) 29.8 pg 26 - 34 pg [facility] MCHC mass conc (RBC) 29.0 g/dL Low 31 - 37 g/dL [facility] MCV Entitic volume (RBC) 102.7 fL High 80 - 100 fL [facility] Monocytes #/vol (Bld) 0.70 10*3/uL [facility] Monocytes/100 WBC (Bld) 8.3 % [facility] Neutrophils #/vol (Bld) 5.47 10*3/uL [facility] Neutrophils/100 WBC (Bld) 64.6 % [facility] Nucleated RBC #/vol (Bld) 0.00 10*3/uL [facility] Nucleated RBC/100 WBC Ratio (Bld) 0.0 % [facility] Platelet mean volume Entitic volume (Bld) 12.6 fL 9 - 15.5 fL [facility] Platelets #/vol (Bld) 168 10*3/uL [facility] RBC #/vol (Bld) 4.03 10*6/uL [facility] WBC #/vol (Bld) 8.46 10*3/uL [facility] CT HEAD OR BRAIN WITHOUT CON TRASTon [...] well as scattered old infarcts, essentially unchanged. [employer] Workstation ID: [id number] [facility] CLINICAL HISTORY: Confusion, lethargy. EXAMINATION: UNENHANCED CT [...] sphenoid air cells. The calvarium appears intact. [facility] 1. No definite acute infarct, hemorrhage or acute intracranial process. 2. 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 MANJEETV/ac Workstation ID: [id number] [facility] Hepatic Function Panel (LFT) on 10-07-2018 Albumin mass conc 3.8 g/dL 3.2 - 5.2 g/dL [facility] ALP enzyme act/vol 130 U/L 40 - 140 U/L [facility] ALT enzyme act/vol 24 U/L 0 - 40 U/L [facility] alth AST enzyme act/vol 23 U/L 0 - 45 U/L [facility] alth Bilirubin mass conc mg/dL 0 - 1.3 mg/dL [facility] Bilirubin.conjugated mass conc mg/dL 0 - 0.4 mg/dL [facility] Protein mass conc 7.1 g/dL 6 - 8 g/dL [facility] Lactic Acid, Plasmaon 2018 Interpretation and review of laboratory results Normal [facility] Lactate molar conc 0.8 mmol/L 0.6 - 2 mmol/L [facility] Lipaseon 10-07-2018 Lipase enzyme act/vol 20 U/L 15 - 65 U/L [facility] Otheron 10-07-2018 Extra Tube Hold for add-ons. [facility] Comment on above: Auto resulted. Interpretation and review of laboratory results Normal [facility] URINALYSISon 10-07-2018 Bacteria Auto Ql (U) Rare Abnormal None Se en /hpf [facility] Bilirubin Ql (U) Negative Negative [facility] th Clarity Refractometry automated Nom (U) Cloudy Abnormal Clear [facility] Color Nom (U) Yellow Colorless, Yellow [facility] Crystals.amorphous Computer assisted #/area (U) Few Abnormal None Seen, Rare /hpf [facility] Glucose Automated test strip mass conc (U) Negative Negative mg/dL [facility] Hemoglobin Automated test strip Ql (U) Negative Negative [facility] Interpretation and review of laboratory results Abnormal [facility] Ketones mass conc (U) Negative Negati ve mg/dL [facility] Leukocyte esterase Automated test strip Ql (U) Negative Negative [facility] Mucus Auto #/area (Urine sed) Rare None Seen, Rare /lpf [facility] Nitrite Automated test strip Ql (U) Negative Negative [facility] pH (U) 9.0 [pH] High [facility] Protein mass conc (U) 100 Abnormal Negati ve mg/dL [facility] Specific gravity Relative Density (U) 1.018 [facility] Urobilinogen mass conc (U) <2.0 <2.0 mg/dL [facility] WBC Auto #/area (Urine sed) 7 High [facility] Microscopic examinat ion is performed on all urinalysis samples and only positive findings are reported. The test for blood on the chemical analytic portion of urinalysis may also be positive due to hemoglobinuria and myoglobinuria and if red blood cells are present they are quantified by microscopic examination. [facility] XR ABDOMEN 1 VIEWon 10-07-19 19 EXAMINATION: XR ABDO MEN /KUB/FLAT PLATE/1 VIEW [...] tube in the region of the stomach. [facility] Nonspecific bowel ga s pattern. SAY/Must See [place] Workstation ID: [id number] [facility] Interface, Rad In Cristi ji Speechq - 10/07/2018 6:33 PM EST EXAMINATION: [...] the stomach. IMPRESSION: Nonspecific bowel gas pattern. SAY/ads Workstation ID: [id number] [facility] XR Chest 1 Viewon 10-07-2018 Interface, Rad In Cristi ji Speechq - 10/07/2018 6:14 PM EST EXAMINATION: CHEST [...] edema and/or atelectasis. SAY/ads Workstation ID: [id number] [facility] 1. Limited study, as described above. 2. There is a right arm PICC. The tip is obscured by the Marrufo rods, but it is most likely within the SVC. If clinically indicated, oblique views may be considered. 3. Mild hazy densities in the lungs may be artifactual or due to interstitial edema and/or atelectasis. SAY/ads Workstation ID: [id number] [facility] EXAMINATION: CHEST RADIOGRAPH HISTORY: confusion, check picc [...] again noted, with Marrufo rods in place. [facility] CNOVon 08-12-2018 CNOV Office Visit (INOPIN) CLAUDINE JOSEPH ([id number]) 1990 [facility] Time Provider Ocrrfyuhzl45/14/18 10:00 AM DEBORA HART During your visit today, we recorded the following information about you: Weight Height 40.8 kg 1.346 mMorad MD Justen 08/12/2018 9:35 AM Eklolq6908/12/2018Colette Goode [id number] [facility] [id number]: Claudine [id number] Dr. Goode:Thank you for your kind referral of Claudine Joseph. Claudine was seen at [facility] today for a chief complaint of pressure [facility]She is here today to ensure that this [...] by DEBORA HART MD on 08/12/18 Normal [facility] 08-12-2018 Protein mass conc HNO ID: [id number]: Debora P GurdService: (none)Author Type: PhysicianType: Progress NotesFiled: 08/12/2018 9:35 AMNote Text:I have reviewed the history and physical obtained and documented by theresident and I personally participated in the camejo components. I agree withthe findings and plan of care, with the additions contained within mydictation.Debora Hart M.D. Normal [facility] Protein mass conc HNO ID: [id number]: Bj Zhou (Fel): (none)Author Type: FellowType: Progress NotesFiled: 08/12/2018 9:35 AMNote Text:08/12/2018Colette Goode MD[address] [facility] [place] [address]Zc: Claudine [id number] Dr. Goode:Thank you for your kind referral [...] MD. August 12, 2018 9:11 AM. Normal [facility] Protein mass conc HNO ID: [id number]: Mary Patel RtService: (none)Author Type: (none)Type: Progress NotesFiled: 08/12/2018 8:46 AMNote Text: Radiology Service Progress NotePATIENT NAME: Claudine JosephMRN: [id number] OF SERVICE: August 12, 2018TIME: 8:45 AMPATIENT IDENTITY VERIFICATION COMPLETED USING TWO (2) METHODS: Patientconfirmed name verbally and Date of .PATIENT GENDER DATA: Female. status: : NoBreastfeeding status: NO.PATIENT RELEVANT IMPLANT DATA REVIEWED: Not ApplicableRADIOLOGY DEPARTMENT: General X-ray: Exam(s) Completed: Spine X-Ray(s):Scoliosis SeriesPERIPHERAL IV DATA: Not applicableSIGNED BY: Mary Patel RtDecember 2017 8:45 AM Normal [facility] XR SCOLIOSIS 2V PA STAND/LAT on 08-12-2018 [...] right-sided PICC line terminates in the distal SVC.German Tutor: PSCB Transcribe Date/Time: Aug 12 2018 10:01ADictated by : ANDRES HUA MDThis examination was interpreted and the report reviewed and electronically signed by: ANDRES HUA MD on Aug 12 2018 10:28AM [id number] N Normal [facility] Echocardiogram completeon Echocardiogram complete REPORT Patient: JAKE Knapp [facility] Rec#: [id number] (Age): 1990(27y) Height: 137.16(cm)/53(i Study Date: 08/02/2017 Weight: 40.82(kg)/90(lb Room#: BSA: 1.23 Type: Loc: Sex: F Reading: Nikhil Pandya DO Referring: NIKHIL PANDYA L Sorter/Assay Tech: MARY MEDRANO History: GERD. CPT Code(s): ECHO COMPLETE W/ DOPPLER (41314) Study Quality The study quality is technically [...] Electronically Signed at 08/02/2017 11:59:17 by: Nikhil ValladaresOhiohealth Pickerington Methodist HospitalBen DO Invalid Interpretation Code [facility] RAD Echocardiogram complete Interface, Rad In [facility] Xper Echopacs - 08/02/2017 12:00 PM EST REPORT Patient: JAKE Knapp [facility] Rec#: [id number] (Age): 1990(27y) Height: 137.16(cm)/53(i Study Date: 08/02/2017 Weight: 40.82(kg)/90(lb Room#: BSA: 1.23 Type: Loc: Sex: F Reading: Nikhil Pandya DO Referring: NIKHIL PANDYA L Sorter/Assay Tech: MARY MEDRANO History: GERD. CPT Code(s): ECHO COMPLETE W/ DOPPLER (37079) Study Quality The study quality is technically [...] none Electronically Signed at 08/02/2017 11:59:17 by: Nikhilmaritza ValladaresGabino Invalid Interpretation Code [facility] ECG 12 Leadon 07-26-2017 Atrial Rate Invalid Interpretation Code [facility] Work Phone: P [place] Invalid Interpretation Code [employer] Phone: P-R Interval Invalid Interpretation Code [facility] Work Phone: Q-T Interval Invalid Interpretation Code [employer] Work Phone: Q-T Interval (corrected) Invalid Interpretation Code [employer] Phone: QRS Duration Invalid Interpretation Code [place] [employer] Phone: QTC Calculation (Bezet) Invalid Interpretation Code [place] [employer] Phone: R [place] Invalid Interpretation Code [place] [employer] Phone: T [place] Invalid Interpretation Code [place] [employer] Phone: Ventricular Rate Invalid Interpretation Code [employer] Phone: Basic Metabolic Panelon 08-2 Calcium 9.4 mg/dL Normal 8.4-10.2 [facility] Comment on above: Performed By: #### C METADD, CHEM8, LIPASE, CBCDIF, EDCTNI ####Unless otherwise noted, all testing performed by [address] [id number]: [id number] Director: Xavi Pineda M.D. Chloride 99 mmol/L Normal 98-108 [facility] Comment on above: Performed By: #### C METADD, CHEM8, LIPASE, CBCDIF, EDCTNI ####Unless otherwise noted, all testing performed by [address] [address] [phone]: [id number] Director: Xavi Pineda M.D. CO2 33 mmol/L High 21-32 [facility] Comment on above: Performed By: #### C METADD, CHEM8, LIPASE, CBCDIF, EDCTNI ####Unless otherwise noted, all testing performed by [address] [phone]: [id number] Director: Xavi Pineda M.D. Creatinine 0.44 mg/dL Normal 0.40-1.10 [facility] Comment on above: Performed By: #### C METADD, CHEM8, LIPASE, CBCDIF, EDCTNI ####Unless otherwise noted, all testing performed by [address] [phone]: [id number] Director: Xavi Pineda M.D. eGFR (black) mL/min/{1.73_m2} Normal [facility] Comment on above: Result Comment: Afri can Filipino GFR Calc Performed By: #### C METADD, CHEM8, LIPASE, CBCDIF, EDCTNI ####Unless otherwise noted, all testing performed by [address] [phone]: [id number] Director: Xavi Pineda M.D. eGFR (non-black) mL/min/{1.73_m2} Normal [facility] Comment on above: Result Comment: [...] ####Unless otherwise noted, all testing performed by [address] [phone]: [id number] Director: Xavi Pineda M.D. Glucose mass conc 101 mg/dL High 70-99 [facility] Comment on above: Result Comment: This test result might be falsely depressed or falsely elevated onsamples drawn from patients taking Sulfasalazine and Sulfapyridine.Venipuncture should occur prior to taking either of these drugs. Performed By: #### C METADD, CHEM8, LIPASE, CBCDIF, EDCTNI ####Unless otherwise noted, all testing performed by [address] [phone]: [id number] Director: Xavi Pineda M.D. Potassium molar conc 3.5 mmol/L Normal 3.5-5.1 [facility] Comment on above: Performed By: #### C METADD, CHEM8, LIPASE, CBCDIF, EDCTNI ####Unless otherwise noted, all testing performed by [address] [phone]: [id number] Director: Xavi Pineda M.D. Sodium 139 mmol/L Normal 135-145 [facility] Comment on above: Performed By: #### C METADD, CHEM8, LIPASE, CBCDIF, EDCTNI ####Unless otherwise noted, all testing performed by [address] [phone]: [id number] Director: Xavi Pineda M.D. Urea nitrogen 13 mg/dL Normal 8-25 [facility] Comment on above: Performed By: #### C METADD, CHEM8, LIPASE, CBCDIF, EDCTNI ####Unless otherwise noted, all testing performed by [address] [phone]: [id number] Director: Xavi Pineda M.D. CBC with Diffon 04-22-2017 Basophils Auto #/vol (Bld) 0.1 K/mcL Normal 0-0.2 [facility] Comment on above: Performed By: #### C METADD, CHEM8, LIPASE, CBCDIF, EDCTNI ####Unless otherwise noted, all testing performed by [address] [phone]: [id number] Director: Xavi Pineda M.D. Basophils/100 WBC Auto (Bld) 0.6 % Normal [facility] Comment on above: Performed By: #### C METADD, CHEM8, LIPASE, CBCDIF, EDCTNI ####Unless otherwise noted, all testing performed by [address] [phone]: [id number] Director: Xavi Pineda M.D. Eosinophils 0.2 K/mcL Normal 0-0.5 [facility] Comment on above: Performed By: #### C METADD, CHEM8, LIPASE, CBCDIF, EDCTNI ####Unless otherwise noted, all testing performed by [address] [phone]: [id number] Director: Xavi Pineda M.D. Eosinophils/100 leukocytes 1.4 % Normal [facility] Comment on above: Performed By: #### C METADD, CHEM8, LIPASE, CBCDIF, EDCTNI ####Unless otherwise noted, all testing performed by [address] [phone]: [id number] Director: Xavi Pineda M.D. Erythrocyte distribution width Auto Ratio (RBC) 14.4 % Normal 10.0-14.4 [facility] Comment on above: Performed By: #### C METADD, CHEM8, LIPASE, CBCDIF, EDCTNI ####Unless otherwise noted, all testing performed by [address] [phone]: [id number] Director: Xavi Pineda M.D. Erythrocytes (RBC) 4.46 M/mcL Normal 3.7-5.0 [facility] Comment on above: Performed By: #### C METADD, CHEM8, LIPASE, CBCDIF, EDCTNI ####Unless otherwise noted, all testing performed by [address] [phone]: [id number] Director: Xavi Pineda M.D. Hematocrit (HCT) 39.7 % Normal 34.4-44.8 [facility] Comment on above: Performed By: #### C METADD, CHEM8, LIPASE, CBCDIF, EDCTNI ####Unless otherwise noted, all testing performed by [address] [phone]: [id number] Director: Xavi Pineda M.D. Hemoglobin mass conc (Bld) 13.3 g/dL Normal 11.6-15.4 [facility] Comment on above: Performed By: #### C METADD, CHEM8, LIPASE, CBCDIF, EDCTNI ####Unless otherwise noted, all testing performed by [address], [place] [phone]: [id number] Director: Xavi Pineda M.D. Lymphocytes 2.1 K/mcL Normal 1.0-3.7 [facility] Comment on above: Performed By: #### C METADD, CHEM8, LIPASE, CBCDIF, EDCTNI ####Unless otherwise noted, all testing performed by [address] [phone]: [id number] Director: Xavi Pineda M.D. Lymphocytes/100 leukocytes 18.5 % Normal [facility] Comment on above: Performed By: #### C METADD, CHEM8, LIPASE, CBCDIF, EDCTNI ####Unless otherwise noted, all testing performed by [address] [phone]: [id number] Director: Xavi Pineda M.D. MCH 29.8 pg Normal 27.9-33.9 [facility] Comment on above: Performed By: #### C METADD, CHEM8, LIPASE, CBCDIF, EDCTNI ####Unless otherwise noted, all testing performed by [address] [phone]: [id number] Director: Xavi Pineda M.D. MCHC mass conc (RBC) 33.4 g/dL Normal 33.1-35.1 [facility] Comment on above: Performed By: #### C METADD, CHEM8, LIPASE, CBCDIF, EDCTNI ####Unless otherwise noted, all testing performed by [address] [phone]: [id number] Director: Xavi Pineda M.D. MCV 89.0 fL Normal 82.6-98.9 [facility] Comment on above: Performed By: #### C METADD, CHEM8, LIPASE, CBCDIF, EDCTNI ####Unless otherwise noted, all testing performed by [place] [phone]: [id number] Director: Xavi Pineda M.D. Monocytes 0.8 K/mcL High 0.1-0.6 [facility] Comment on above: Performed By: #### C METADD, CHEM8, LIPASE, CBCDIF, EDCTNI ####Unless otherwise noted, all testing performed by [address]8509CLIA: [id number] Director: Xavi Pineda M.D. Monocytes/100 leukocytes 7.2 % Normal [facility] Comment on above: Performed By: #### C METADD, CHEM8, LIPASE, CBCDIF, EDCTNI ####Unless otherwise noted, all testing performed by [address]8509CLIA: [id number] Director: Xavi Pineda M.D. Neutrophils 8.4 K/mcL High 1.2-6.9 [facility] Comment on above: Performed By: #### C METADD, CHEM8, LIPASE, CBCDIF, EDCTNI ####Unless otherwise noted, all testing performed by [place] [phone]: [id number] Director: Xavi Pineda M.D. Platelet mean volume (PMV) 11.1 fL High 7.0-10.6 [facility] Comment on above: Performed By: #### C METADD, CHEM8, LIPASE, CBCDIF, EDCTNI ####Unless otherwise noted, all testing performed by [address] [phone]: [id number] Director: Xavi Pineda M.D. Platelets 116 K/mcL Low 162-402 [facility] Comment on above: Performed By: #### C METADD, CHEM8, LIPASE, CBCDIF, EDCTNI ####Unless otherwise noted, all testing performed by [address] [phone]: [id number] Director: Xavi Pineda M.D. Segmented Neut % 72.3 % Normal [facility] Comment on above: Performed By: #### C METADD, CHEM8, LIPASE, CBCDIF, EDCTNI ####Unless otherwise noted, all testing performed by [address] [phone]: [id number] Director: Xavi Pineda M.D. WBC (Leukocytes) 11.6 K/mcL High 3.4-10.6 [facility] Comment on above: Performed By: #### C METADD, CHEM8, LIPASE, CBCDIF, EDCTNI ####Unless otherwise noted, all testing performed by [address] [phone]: [id number] Director: Xavi Pineda M.D. CHEST (ONE VIEW ONLY)on 03-31 CHEST (ONE VIEW ONLY) Final ReportAccession No: [id number] Performed: Apr 22 2017 6:36AMExamination: CHEST [...] Physician: PRUDENCE MALCOLM M.D.Trans: : cc: Normal [facility] CMET Add-On Testson 04-22-20 17 Alanine aminotransferase (ALT) 31 U/L Normal 14-65 [facility] Comment on above: Result Comment: This test result might be falsely depressed or falsely elevated onsamples drawn from patients taking Sulfasalazine and Sulfapyridine.Venipuncture should occur prior to taking either of these drugs. Performed By: #### C METADD, CHEM8, LIPASE, CBCDIF, EDCTNI ####Unless otherwise noted, all testing performed by [address] [phone]: [id number] Director: Xavi Pineda M.D. Albumin 3.4 g/dL Normal 3.2-5.2 [facility] Comment on above: Performed By: #### C METADD, CHEM8, LIPASE, CBCDIF, EDCTNI ####Unless otherwise noted, all testing performed by [address] [phone]: [id number] Director: Xavi iPneda M.D. Alkaline phosphatase (ALP) 148 U/L High 40-140 [facility] Comment on above: Performed By: #### C METADD, CHEM8, LIPASE, CBCDIF, EDCTNI ####Unless otherwise noted, all testing performed by [address] [phone]: [id number] Director: Xavi Pineda M.D. Aspartate aminotransferase (AST) 21 U/L Normal 0-45 [facility] Comment on above: Result Comment: This test result might be falsely depressed or falsely elevated onsamples drawn from patients taking Sulfasalazine and Sulfapyridine.Venipuncture should occur prior to taking either of these drugs. Performed By: #### C METADD, CHEM8, LIPASE, CBCDIF, EDCTNI ####Unless otherwise noted, all testing performed by [address] [phone]: [id number] Director: Xavi Pineda M.D. Bilirubin (total) 0.2 mg/dL Low 0.3-1.2 [facility] Comment on above: Performed By: #### C METADD, CHEM8, LIPASE, CBCDIF, EDCTNI ####Unless otherwise noted, all testing performed by [address] [phone]: [id number] Director: Xavi Pineda M.D. Protein 8.0 g/dL Normal 6.0-8.0 [facility] Comment on above: Performed By: #### C METADD, CHEM8, LIPASE, CBCDIF, EDCTNI ####Unless otherwise noted, all testing performed by [address] [phone]: [id number] Director: Xavi Pineda M.D. CT ABDO,PELVIS W/O CONTRASTo n 04-22-2017 CT ABDO,PELVIS W/O CONTRAST Final ReportAccession No: [id number] Performed: Apr 22 2017 1:06PMExamination: CT [...] bladder is distended.Interpreting Physician: PRUDENCE MALCOLM M.D.Trans: [id number] : cc: Normal [facility] CT CHEST W/O CONTRASTon 03-31 CT CHEST W/O CONTRAST Final ReportAccession No: [id number] Performed: Apr 22 2017 1:06PMExamination: CT [...] bladder is distended.Interpreting Physician: PRUDENCE MALCOLM M.D.Trans: [id number] : cc: Normal [facility] Culture, Bloodon 04-22-2017 Culture, Blood Test Name: Culture, Blood Culture Status: Final Culture Report: No Growth - Day 5 Micro Source: BLOOD Normal [facility] Comment on above: Performed By: #### C METADD, CHEM8, LIPASE, CBCDIF, EDCTNI ####Unless otherwise noted, all testing performed by [address] [phone]: [id number] Director: Xavi Pineda M.D. Culture, Blood Test Name: Culture, Blood Culture Status: Final Culture Report: No Growth - Day 5 Micro Source: BLOOD Normal [facility] Comment on above: Performed By: #### C METADD, CHEM8, LIPASE, CBCDIF, EDCTNI ####Unless otherwise noted, all testing performed by [address] [phone]: [id number] Director: Xavi Pineda M.D. ED Cardiac Troponin-Ion 03-31 Troponin I.cardiac mass conc ng/mL Normal < 45 [facility] Comment on above: Result Comment: Elev ation of troponin indicates some degree of myocardial necrosis butunless there is a significant rise and/or fall (if elevated) identified,it unlikely that an acute event has taken place Performed By: #### C METADD, CHEM8, LIPASE, CBCDIF, EDCTNI ####Unless otherwise noted, all testing performed by [address] [phone]: [id number] Director: Xavi Pineda M.D. Lactic Acidon 04-22-2017 Lactate 1.5 mmol/L Normal 0.6-2.0 [facility] Comment on above: Performed By: #### L A ####Unless otherwise noted, all testing performed by [address] [id number]: [id number] Director: Xavi Pineda M.D. Lipaseon 04-22-2017 Lipase 81 U/L Normal 73-393 [facility] Comment on above: Performed By: #### C METADD, CHEM8, LIPASE, CBCDIF, EDCTNI ####Unless otherwise noted, all testing performed by [address] [phone]: [id number] Director: Xavi Pineda M.D. Urinalysis, Routineon 2016 Amorphous,Crystal Occasional Abnormal None Seen [facility] Comment on above: Performed By: #### U A ####Unless otherwise noted, all testing performed by [address] [phone]: [id number] Director: Xavi Pineda M.D. Bilirubin,Urine Negative Normal NEG;NEGATIVE [facility] Comment on above: Performed By: #### U A ####Unless otherwise noted, all testing performed by [address] [phone]: [id number] Director: Xavi Pineda M.D. Blood,Urine Negative Normal NEG;NEGATIVE [facility] Comment on above: Performed By: #### U A ####Unless otherwise noted, all testing performed by [address] [phone]: [id number] Director: Xavi Pineda M.D. Ketone,Urine Negative Normal NEG;NEGATIVE [facility] Comment on above: Performed By: #### U A ####Unless otherwise noted, all testing performed by [place] [id number]: [id number] Director: Xavi Pineda M.D. Leuk.Esterase,Urine Trace Abnormal Negative [facility] Comment on above: Performed By: #### U A ####Unless otherwise noted, all testing performed by [address] [phone]: [id number] Director: Xavi Pineda M.D. Mucus, Urine Rare Abnormal None Seen [facility] Comment on above: Performed By: #### U A ####Unless otherwise noted, all testing performed by [address] [phone]: [id number] Director: Xavi Pineda M.D. Nitrite,Urine Negative Normal NEG;NEGATIVE [facility] Comment on above: Performed By: #### U A ####Unless otherwise noted, all testing performed by [address] [phone]: [id number] Director: Xavi Miriam, M.D. Protein,Urine 30 mg/dL High < 30 [facility] Comment on above: Performed By: #### U A ####Unless otherwise noted, all testing performed by [place] [phone]: [id number] Director: Xavi Pineda M.D. Specific Bradshaw,Urine 1.018 Normal 1.003-1.[address] [facility] Comment on above: Performed By: #### U A ####Unless otherwise noted, all testing performed by [place] [id number]: [id number] Director: Xavi Pineda M.D. Squamous Epithelial < 1 Normal 0-40 [facility] Comment on above: Performed By: #### U A ####Unless otherwise noted, all testing performed by [place] [id number]: [id number] Director: Xavi Pineda M.D. Urine, character Cloudy Normal [facility] Comment on above: Performed By: #### U A ####Unless otherwise noted, all testing performed by [phone]: [id number] Director: Xavi Pineda M.D. Urine, color Yellow Normal [facility] Comment on above: Performed By: #### U A ####Unless otherwise noted, all testing performed by [address] [phone]: [id number] Director: Xavi Pineda M.D. Urine, erythrocytes in sediment by area 2 /[HPF] Normal 0-5 [facility] Comment on above: Performed By: #### U A ####Unless otherwise noted, all testing performed by [address] [phone]: [id number] Director: Xavi Pineda M.D. Urine, glucose presence Negative Normal NEG;NEGATIVE [facility] Comment on above: Performed By: #### U A ####Unless otherwise noted, all testing performed by [address] [phone]: [id number] Director: Xavi Pineda M.D. Urine, leukocytes in sedmiment 7 /[HPF] High 0-5 [facility] Comment on above: Performed By: #### U A ####Unless otherwise noted, all testing performed by [address] [phone]: [id number] Director: Xavi Pineda M.D. Urine, pH 8.0 [pH] Normal 4.5-8.0 [facility] Comment on above: Performed By: #### U A ####Unless otherwise noted, all testing performed by [address] [phone]: [id number] Director: Xavi Pineda M.D. Urobilinogen,Urine < 2.0 Normal <2 [facility] Comment on above: Performed By: #### U A ####Unless otherwise noted, all testing performed by [address] [phone]: [id number] Director: Xavi Pineda M.D. Vital Signs Date Time Vital Sign Value Performing Clinician Facility 05-10-2025 14:00-0400 Body temperature 97.3 [degF] Dr. Colette Goode MD Work Phone: [facility] 05-10-2025 14:00-0400 Diastolic blood pressure 67 mm[Hg] Dr. Colette Goode MD Work Phone: [facility] 05-10-2025 14:00-0400 Heart rate 104 /min Dr. Colette Goode MD Work Phone: [facility] 05-10-2025 14:00-0400 Respiratory rate 18 /min Dr. Colette Goode MD Work Phone: [facility] 05-10-2025 14:00-0400 Systolic blood pressure 104 mm[Hg] Dr. Colette Goode MD Work Phone: [facility] 05-03-2025 11:38-0400 Body temperature 97.3 [degF] Dr. Colette Goode MD Work Phone: [facility] 05-03-2025 11:38-0400 Diastolic blood pressure 52 mm[Hg] Dr. Colette Goode MD Work Phone: [facility] 05-03-2025 11:38-0400 Heart rate 83 /min Dr. Colette Goode MD Work Phone: [facility] 05-03-2025 11:38-0400 Respiratory rate 18 /min Dr. Colette Goode MD Work Phone: [facility] 05-03-2025 11:38-0400 Systolic blood pressure 93 mm[Hg] Dr. Colette Goode MD Work Phone: [facility] 05-01-2025 10:19-0400 Body height 137.[address] Colette Goode MD Work Phone: [facility] 05-01-2025 10:19-0400 Body mass index (BMI) [Ratio] 18.1 kg/m2 Dr. Colette Goode MD Work Phone: [facility] 05-01-2025 10:19-0400 Body temperature 97 [degF] Dr. Colette Goode MD Work Phone: [facility] 05-01-2025 10:19-0400 Body weight 34.[address] Colette Goode MD Work Phone: [facility] 05-01-2025 10:19-0400 Diastolic blood pressure 73 mm[Hg] Dr. Colette Goode MD Work Phone: [facility] 05-01-2025 10:19-0400 Heart rate 99 /min Dr. Colette Goode MD Work Phone: [facility] 05-01-2025 10:19-0400 Inhaled oxygen flow rate 2 L/min Dr. Colette Goode MD Work Phone: [facility] 05-01-2025 10:19-0400 Respiratory rate 18 /min Dr. Colette Goode MD Work Phone: [facility] 05-01-2025 10:19-0400 SaO2% (BldA) [Mass fraction] 98 % Dr. Colette Goode MD Work Phone: [facility] 05-01-2025 10:19-0400 Systolic blood pressure 108 mm[Hg] Dr. Colette Goode MD Work Phone: [facility] 04-19-2025 14:41-0400 Body temperature 97.7 [degF] Dr. Colette Goode MD Work Phone: [facility] 04-19-2025 14:41-0400 Diastolic blood pressure 75 mm[Hg] Dr. Colette Goode MD Work Phone: [facility] 04-19-2025 14:41-0400 Heart rate 106 /min Dr. Colette Goode MD Work Phone: [facility] 04-19-2025 14:41-0400 Respiratory rate 14 /min Dr. Colette Goode MD Work Phone: [facility] 04-19-2025 14:41-0400 Systolic blood pressure 108 mm[Hg] Dr. Colette Goode MD Work Phone: [facility] 04-06-2025 16:12-0400 Body temperature 98.9 [degF] Dr. Colette Goode MD Work Phone: [facility] 04-06-2025 16:12-0400 Diastolic blood pressure 63 mm[Hg] Dr. Colette Goode MD Work Phone: [facility] 04-06-2025 16:12-0400 Heart rate 78 /min Dr. Colette Goode MD Work Phone: [facility] 04-06-2025 16:12-0400 Respiratory rate 14 /min Dr. Colette Goode MD Work Phone: [facility] 04-06-2025 16:12-0400 SaO2% (BldA) [Mass fraction] 97 % Dr. Colette Goode MD Work Phone: [facility] 04-06-2025 16:12-0400 Systolic blood pressure 94 mm[Hg] Dr. Colette Goode MD Work Phone: [facility] 04-06-2025 16:00-0400 Inhaled oxygen flow rate 2 L/min Dr. Colette Goode MD Work Phone: [facility] 04-06-2025 12:47-0400 Body height 134.[address] Colette Goode MD Work Phone: [facility] 04-05-2025 13:24-0400 Body temperature 98.7 [degF] Dr. Colette Goode MD Work Phone: [facility] 04-05-2025 13:24-0400 Diastolic blood pressure 76 mm[Hg] Dr. Colette Goode MD Work Phone: [facility] 04-05-2025 13:24-0400 Heart rate 119 /min Dr. Colette Goode MD Work Phone: [facility] 04-05-2025 13:24-0400 Respiratory rate 18 /min Dr. Colette Goode MD Work Phone: [facility] 04-05-2025 13:24-0400 Systolic blood pressure 113 mm[Hg] Dr. Colette Goode MD Work Phone: [facility] 03-29-2025 13:30-0400 Body mass index (BMI) [Ratio] 18.8 kg/m2 Dr. Colette Goode MD Work Phone: [facility] 03-29-2025 13:30-0400 Body temperature 97.3 [degF] Dr. Colette Goode MD Work Phone: [facility] 03-29-2025 13:30-0400 Diastolic blood pressure 79 mm[Hg] Dr. Colette Goode MD Work Phone: [facility] 03-29-2025 13:30-0400 Heart rate 106 /min Dr. Colette Goode MD Work Phone: [facility] 03-29-2025 13:30-0400 Respiratory rate 18 /min Dr. Colette Goode MD Work Phone: [facility] 03-29-2025 13:30-0400 Systolic blood pressure 111 mm[Hg] Dr. Colette Goode MD Work Phone: [facility] 03-14-2025 10:22-0400 Body height 134.[address] Colette Goode MD Work Phone: [facility] 03-14-2025 10:22-0400 Body weight 34.[address] Colette Goode MD Work Phone: [facility] 12-14-2024 14:01-0400 Diastolic blood pressure 74 mm[Hg] Ruma Godwin ACTIVITIES ATTENDANT Work Phone: [facility] 12-14-2024 14:01-0400 Heart rate 93 /min Ruma Godwin ACTIVITIES ATTENDANT Work Phone: [facility] 12-14-2024 14:01-0400 Systolic blood pressure 112 mm[Hg] Ruma Cottrello ACTIVITIES ATTENDANT Work Phone: [facility] 11-07-2024 11:02-0400 Diastolic blood pressure 68 mm[Hg] Celena Fields MD Work Phone: [facility] 11-07-2024 11:02-0400 Heart rate 102 /min Celena Fields MD Work Phone: [facility] 11-07-2024 11:02-0400 Systolic blood pressure 104 mm[Hg] Celena Fields MD Work Phone: [facility] 04-04-2024 14:21-0400 Body mass index (BMI) [Ratio] 22.34 kg/m2 Yanyshilpa Wright ACTIVITIES ATTENDANT Work Phone: [facility] 04-04-2024 14:21-0400 Body weight 38.96 kg Yany Wright ACTIVITIES ATTENDANT Work Phone: [facility] Comment on above: Wheelchair weight 128.4 04-04-2024 14:21-0400 Diastolic blood pressure 68 mm[Hg] Yany Wright ACTIVITIES ATTENDANT Work Phone: [facility] 04-04-2024 14:21-0400 Heart rate 103 /min Yany Wright ACTIVITIES ATTENDANT Work Phone: [facility] 04-04-2024 14:21-0400 Systolic blood pressure 100 mm[Hg] Yany Wright ACTIVITIES ATTENDANT Work Phone: [facility] 03-22-2024 12:46-0400 SaO2% (BldA) [Mass fraction] 87 % Stephy Cisse MD Work Phone: [facility] Comment on above: RA 03-22-2024 12:37-0400 Body height 132.1 cm Stephy Cisse MD Work Phone: [facility] [facility] 03-22-2024 12:37-0400 Body mass index (BMI) [Ratio] 19.5 kg/m2 Stephy Cisse MD Work Phone: [facility] 03-22-2024 12:37-0400 Body temperature 97.59 [degF] Stephy Cisse MD Work Phone: [facility] 03-22-2024 12:37-0400 Body weight 34.02 kg Stephy Cisse MD Work Phone: [facility] 03-22-2024 12:37-0400 Diastolic blood pressure 70 mm[Hg] Stephy Cisse MD Work Phone: [facility] 03-22-2024 12:37-0400 Heart rate 97 /min Stephy Cisse MD Work Phone: [facility] 03-22-2024 12:37-0400 Respiratory rate 18 /min Stephy Cisse MD Work Phone: [facility] 03-22-2024 12:37-0400 Systolic blood pressure 102 mm[Hg] Stephy Cisse MD Work Phone: [facility] 03-14-2024 07:44-0400 Diastolic blood pressure 74 mm[Hg] Celena Fields MD Work Phone: [facility] 03-14-2024 07:44-0400 Heart rate 84 /min Celena Fields MD Work Phone: [facility] 03-14-2024 07:44-0400 Systolic blood pressure 112 mm[Hg] Celena Fields MD Work Phone: [facility] 01-18-2024 13:24-0400 Body height 132.1 cm Richar Talbert MD Work Phone: [facility] 01-18-2024 13:24-0400 Body mass index (BMI) [Ratio] 19.5 kg/m2 Richar Talbert MD Work Phone: [facility] 01-18-2024 13:24-0400 Body weight 34.02 kg Richar Talbert MD Work Phone: [facility] 01-18-2024 13:24-0400 Diastolic blood pressure 85 mm[Hg] Richar Talbert MD Work Phone: [facility] 01-18-2024 13:24-0400 Heart rate 111 /min Richar Talbert MD Work Phone: [facility] 01-18-2024 13:24-0400 Respiratory rate 16 /min Richar Talbert MD Work Phone: [facility] 01-18-2024 13:24-0400 Systolic blood pressure 136 mm[Hg] Richar Talbert MD Work Phone: [facility] 12-13-2023 14:02-0400 Body mass index (BMI) [Ratio] 19.5 kg/m2 Ruma Cottrello ACTIVITIES ATTENDANT Work Phone: [facility] 12-13-2023 14:02-0400 Body weight 34.02 kg Ruma Cottrello ACTIVITIES ATTENDANT Work Phone: [facility] 12-13-2023 14:02-0400 Diastolic blood pressure 65 mm[Hg] Ruma Cottrello ACTIVITIES ATTENDANT Work Phone: [facility] 12-13-2023 14:02-0400 Heart rate 96 /min Ruma Cottrello ACTIVITIES ATTENDANT Work Phone: [facility] 12-13-2023 14:02-0400 Systolic blood pressure 89 mm[Hg] Ruma Cottrello ACTIVITIES ATTENDANT Work Phone: [facility] 11-26-2023 15:02-0400 Body height 132.1 cm Stephy Cisse MD Work Phone: [facility] Comment on above: in wheelchair 11-26-2023 15:02-0400 Body mass index (BMI) [Ratio] 19.5 kg/m2 Stephy Cisse MD Work Phone: [facility] 11-26-2023 15:02-0400 Body temperature 98.01 [degF] Stephy Cisse MD Work Phone: [facility] 11-26-2023 15:02-0400 Body weight 34.02 kg Stephy Cisse MD Work Phone: [facility] Comment on above: in wheelchair 11-26-2023 15:02-0400 Diastolic blood pressure 65 mm[Hg] Stephy Cisse MD Work Phone: [facility] 11-26-2023 15:02-0400 Heart rate 106 /min Stephy Cisse MD Work Phone: [facility] 11-26-2023 15:02-0400 SaO2% (BldA) [Mass fraction] 98 % Stephy Cisse MD Work Phone: [facility] 11-26-2023 15:02-0400 Systolic blood pressure 104 mm[Hg] Stephy Cisse MD Work Phone: [facility] 11-10-2023 15:23-0400 Body mass index (BMI) [Ratio] 18.08 kg/m2 Celena Fields MD Work Phone: [facility] 11-10-2023 15:23-0400 Body weight 34.02 kg Celena Fields MD Work Phone: [facility] 11-10-2023 15:23-0400 Diastolic blood pressure 70 mm[Hg] Celena Fields MD Work Phone: [facility] 11-10-2023 15:23-0400 Heart rate 75 /min Celena Fields MD Work Phone: [facility] 11-10-2023 15:23-0400 Systolic blood pressure 110 mm[Hg] Celena Fields MD Work Phone: [facility] 09-13-2023 10:57-0500 Body height 137.2 cm Yany Wright ACTIVITIES ATTENDANT Work Phone: [facility] 09-13-2023 10:57-0500 Respiratory rate 16 /min Yany Wright ACTIVITIES ATTENDANT Work Phone: [facility] 06-01-2023 13:04-0400 Body mass index (BMI) [Ratio] 18.08 kg/m2 Celena Fields MD Work Phone: [facility] 06-01-2023 13:04-0400 Body weight 34.02 kg Celena Fields MD Work Phone: [facility] 04-21-2023 10:11-0400 Diastolic blood pressure 68 mm[Hg] Sunita Mejia MD Work Phone: [facility] Comment on above: Auto 04-21-2023 10:11-0400 Heart rate 99 /min Sunita Mejia MD Work Phone: [facility] 04-21-2023 10:11-0400 Systolic blood pressure 96 mm[Hg] Sunita Mejia MD Work Phone: [facility] Comment on above: Auto 02-02-2023 13:22-0400 Body height 137.2 cm Celena Fields MD Work Phone: [facility] 02-02-2023 13:22-0400 Body mass index (BMI) [Ratio] 18.08 kg/m2 Celena Fields MD Work Phone: [facility] 02-02-2023 13:22-0400 Body weight 34.02 kg Celena Fields MD Work Phone: [facility] Comment on above: per documented weight 7 days ago 02-02-2023 13:22-0400 Diastolic blood pressure 75 mm[Hg] Celena Fields MD Work Phone: [facility] 02-02-2023 13:22-0400 Heart rate 108 /min Celena Fields MD Work Phone: [facility] 02-02-2023 13:22-0400 Systolic blood pressure 112 mm[Hg] Celena Fields MD Work Phone: [facility] 12-01-2022 12:55-0400 Body height 137.2 cm Celena Fields MD Work Phone: [facility] 12-01-2022 12:55-0400 Body mass index (BMI) [Ratio] 18.08 kg/m2 Celena Fields MD Work Phone: [facility] 12-01-2022 12:55-0400 Body weight 34.02 kg Celena Fields MD Work Phone: [facility] 12-01-2022 12:55-0400 Diastolic blood pressure 76 mm[Hg] Celena Fields MD Work Phone: [facility] 12-01-2022 12:55-0400 Heart rate 120 /min Celena Fields MD Work Phone: [facility] 12-01-2022 12:55-0400 Systolic blood pressure 110 mm[Hg] Celena Fields MD Work Phone: [facility] 11-03-2022 11:10-0500 Body height 137.2 cm Celena Fields MD Work Phone: [facility] 11-03-2022 11:10-0500 Body mass index (BMI) [Ratio] 18.08 kg/m2 Celena Fields MD Work Phone: [facility] 11-03-2022 11:10-0500 Body weight 34.02 kg Celena Fields MD Work Phone: [facility] 11-03-2022 11:10-0500 Diastolic blood pressure 74 mm[Hg] Celena Fields MD Work Phone: [facility] 11-03-2022 11:10-0500 Heart rate 116 /min Celena Fields MD Work Phone: [facility] 11-03-2022 11:10-0500 Systolic blood pressure 111 mm[Hg] Celena Fields MD Work Phone: [facility] 10-13-2022 10:36-0500 Diastolic blood pressure 77 mm[Hg] Celena Fields MD Work Phone: [facility] 10-13-2022 10:36-0500 Heart rate 123 /min Celena Fields MD Work Phone: [facility] 10-13-2022 10:36-0500 Systolic blood pressure 112 mm[Hg] Celena Fields MD Work Phone: [facility] 09-22-2022 13:04-0500 Diastolic blood pressure 71 mm[Hg] Augusto Moncada MD Work Phone: [facility] 09-22-2022 13:04-0500 Heart rate 112 /min Augusto Moncada MD Work Phone: [facility] 09-22-2022 13:04-0500 Systolic blood pressure 106 mm[Hg] Augusto Moncada MD Work Phone: [facility] 07-25-2022 11:08-0500 Body temperature 98.49 [degF] Kenyettayunier Domingo RN [facility] 07-25-2022 11:08-0500 Heart rate 99 /min Kenyettayunier Domingo RN [facility] 07-25-2022 11:08-0500 Respiratory rate 20 /min Kenyettayunier Domingo RN [facility] 07-25-2022 11:08-0500 SaO2% (BldA) [Mass fraction] 100 % Kenyettayunier Domingo RN [facility] 07-22-2022 09:01-0500 Body temperature 98.1 [degF] Christine Cara RN [facility] 07-22-2022 09:01-0500 Diastolic blood pressure 72 mm[Hg] Christine Marroquin RN [facility] 07-22-2022 09:01-0500 Heart rate 94 /min Christine Marroquin RN [facility] 07-22-2022 09:01-0500 Respiratory rate 14 /min Christine Talleyoss RN [facility] 07-22-2022 09:01-0500 SaO2% (BldA) [Mass fraction] 99 % Christine Marroquin RN [facility] 07-22-2022 09:01-0500 Systolic blood pressure 112 mm[Hg] Christine Marroquin RN [facility] 07-21-2022 21:12-0500 Respiratory rate 25 /min Fernando Camacho MD Work Phone: [facility] 07-21-2022 11:28-0500 Body temperature 98.01 [degF] Fernando Camacho MD Work Phone: [facility] 07-21-2022 11:28-0500 Diastolic blood pressure 74 mm[Hg] Fernando Camacho MD Work Phone: [facility] 07-21-2022 11:28-0500 Heart rate 114 /min Fernando Camacho MD Work Phone: [facility] 07-21-2022 11:28-0500 SaO2% (BldA) [Mass fraction] 98 % Fernando Camacho MD Work Phone: [facility] 07-21-2022 11:28-0500 Systolic blood pressure 114 mm[Hg] Fernando Camacho MD Work Phone: [facility] 07-16-2022 06:00-0500 Body mass index (BMI) [Ratio] 17.97 kg/m2 Fernando Camacho MD Work Phone: [facility] 07-16-2022 06:00-0500 Body weight 33.8 kg Fernando Camacho MD Work Phone: [facility] 07-15-2022 21:00-0500 Body height 137.2 cm Fernando Camacho MD Work Phone: [facility] 12-22-2021 09:15-0400 Diastolic blood pressure 73 mm[Hg] Alex Velasco MD Work Phone: [facility] 12-22-2021 09:15-0400 Heart rate 89 /min Alex Velasco MD Work Phone: [facility] 12-22-2021 09:15-0400 Respiratory rate 20 /min Alex Velasco MD Work Phone: [facility] 12-22-2021 09:15-0400 SaO2% (BldA) [Mass fraction] 100 % Alex Velasco MD Work Phone: [facility] 12-22-2021 09:15-0400 Systolic blood pressure 115 mm[Hg] Alex Velasco MD Work Phone: [facility] 12-22-2021 08:03-0400 Body height 137.2 cm Alex Velasco MD Work Phone: [facility] 12-22-2021 08:03-0400 Body temperature 97.7 [degF] Alex Velasco MD Work Phone: [facility] 11-17-2021 16:15-0400 Diastolic blood pressure 81 mm[Hg] Alex Velasco MD Work Phone: [facility] 11-17-2021 16:15-0400 Heart rate 120 /min Alex Velasco MD Work Phone: [facility] 11-17-2021 16:15-0400 Respiratory rate 27 /min Alex Velasco MD Work Phone: [facility] 11-17-2021 16:15-0400 SaO2% (BldA) [Mass fraction] 97 % Alex Velasco MD Work Phone: [facility] 11-17-2021 16:15-0400 Systolic blood pressure 157 mm[Hg] Alex Velasco MD Work Phone: [facility] 11-17-2021 13:39-0400 Body height 137.2 cm Alex Velasco MD Work Phone: [facility] 11-17-2021 13:39-0400 Body temperature 98.91 [degF] Alex Velasco MD Work Phone: [facility] 08-21-2021 12:38-0500 Body height 134.6 cm Donna Brush ACTIVITIES ATTENDANT Work Phone: [facility] 08-21-2021 12:38-0500 Body mass index (BMI) [Ratio] 21.28 kg/m2 Donna Brush ACTIVITIES ATTENDANT Work Phone: [facility] 08-21-2021 12:38-0500 Body weight 38.56 kg Donna O'Richard ACTIVITIES ATTENDANT Work Phone: [facility] 08-21-2021 12:38-0500 Diastolic blood pressure 68 mm[Hg] Donna O'Bryant ACTIVITIES ATTENDANT Work Phone: [facility] 08-21-2021 12:38-0500 Heart rate 128 /min Donna O'Bryant ACTIVITIES ATTENDANT Work Phone: [facility] 08-21-2021 12:38-0500 Systolic blood pressure 101 mm[Hg] Donna O'Richard ACTIVITIES ATTENDANT Work Phone: [facility] 06-18-2021 12:54-0400 Body temperature 98.8 [degF] Yany Wright ACTIVITIES ATTENDANT Work Phone: [facility] 06-18-2021 12:54-0400 Diastolic blood pressure 81 mm[Hg] Yany Wright ACTIVITIES ATTENDANT Work Phone: [facility] 06-18-2021 12:54-0400 Heart rate 110 /min Yany Wright ACTIVITIES ATTENDANT Work Phone: [facility] 06-18-2021 12:54-0400 Respiratory rate 16 /min Yany Wright ACTIVITIES ATTENDANT Work Phone: [facility] 06-18-2021 12:54-0400 Systolic blood pressure 137 mm[Hg] Yany Wright ACTIVITIES ATTENDANT Work Phone: [facility] 05-01-2021 10:05-0400 Diastolic blood pressure 67 mm[Hg] Ruma Masciangelo ACTIVITIES ATTENDANT Work Phone: [facility] 05-01-2021 10:05-0400 Heart rate 103 /min Ruma Masciangelo ACTIVITIES ATTENDANT Work Phone: [facility] 05-01-2021 10:05-0400 Systolic blood pressure 102 mm[Hg] Ruma Masciangelo ACTIVITIES ATTENDANT Work Phone: [facility] 02-10-2021 14:30-0400 Body temperature 97.2 [degF] Werner Kaplan Jr., MD Work Phone: [facility] 02-10-2021 14:30-0400 Diastolic blood pressure 62 mm[Hg] Werner Kaplan Jr., MD Work Phone: [facility] 02-10-2021 14:30-0400 Heart rate 86 /min Werner Kaplan Jr., MD Work Phone: [facility] 02-10-2021 14:30-0400 Respiratory rate 16 /min Werner Kaplan Jr., MD Work Phone: [facility] 02-10-2021 14:30-0400 SaO2% (BldA) [Mass fraction] 97 % Werner Kaplan Jr., MD Work Phone: [facility] 02-10-2021 14:30-0400 Systolic blood pressure 91 mm[Hg] Werner Kaplan Jr., MD Work Phone: [facility] 02-04-2021 11:41-0400 Body height 134.6 cm Wilder Jump DO Work Phone: [facility] 02-04-2021 11:41-0400 Body mass index (BMI) [Ratio] 21.28 kg/m2 Wilder Jump DO Work Phone: [facility] 02-04-2021 11:41-0400 Body weight 38.56 kg Wilder Jump DO Work Phone: [facility] 02-04-2021 11:41-0400 Diastolic blood pressure 74 mm[Hg] Wilder Jump DO Work Phone: [facility] 02-04-2021 11:41-0400 Heart rate 63 /min Wilder Jump DO Work Phone: [facility] 02-04-2021 11:41-0400 Systolic blood pressure 111 mm[Hg] Wilder Jump DO Work Phone: [facility] 01-13-2021 14:46-0400 Body height 134.6 cm Werner Kaplan Jr., MD Work Phone: [facility] 01-13-2021 14:46-0400 Body mass index (BMI) [Ratio] 21.28 kg/m2 Werner Kaplan Jr., MD Work Phone: [facility] 01-13-2021 14:46-0400 Body temperature 98.1 [degF] Werner Kaplan Jr., MD Work Phone: [facility] 01-13-2021 14:46-0400 Body weight 38.56 kg Werner Kaplan Jr., MD Work Phone: [facility] 01-13-2021 14:46-0400 Diastolic blood pressure 88 mm[Hg] Werner Kaplan Jr., MD Work Phone: [facility] 01-13-2021 14:46-0400 Heart rate 106 /min Werner Kaplan Jr., MD Work Phone: [facility] 01-13-2021 14:46-0400 Respiratory rate 16 /min Werner Kaplan Jr., MD Work Phone: [facility] 01-13-2021 14:46-0400 SaO2% (BldA) [Mass fraction] 99 % Werner Kaplan Jr., MD Work Phone: [facility] Comment on above: 2 L O2 01-13-2021 14:46-0400 Systolic blood pressure 125 mm[Hg] Werner Kaplan Jr., MD Work Phone: [facility] 01-09-2021 09:33-0400 Body mass index (BMI) [Ratio] 21.28 kg/m2 Ruma Godwin CNP Work Phone: [facility] 01-09-2021 09:33-0400 Body weight 38.56 kg Ruma Godwin ACTIVITIES ATTENDANT Work Phone: [facility] 01-09-2021 09:33-0400 Diastolic blood pressure 75 mm[Hg] Ruma Godwin CNP Work Phone: [facility] 01-09-2021 09:33-0400 Heart rate 111 /min Ruma Godwin ACTIVITIES ATTENDANT Work Phone: [facility] 01-09-2021 09:33-0400 Systolic blood pressure 105 mm[Hg] Ruma Godwin ACTIVITIES ATTENDANT Work Phone: [facility] 11-27-2020 17:01-0400 BP Diastolic 75 mm[Hg] [facility] 11-27-2020 17:01-0400 BP Systolic 108 mm[Hg] [facility] 11-27-2020 17:01-0400 Pulse (Heart Rate) 102 /min [facility] 11-27-2020 17:01-0400 Pulse Oximetry 99 % [facility] 11-27-2020 17:01-0400 Respiratory Rate 18 /min [facility] 11-27-2020 10:53-0400 BMI (Body Mass Index) 21.28 kg/m2 [facility] 11-27-2020 10:53-0400 Body Temperature 99.1 [degF] [facility] 11-27-2020 10:53-0400 Body weight 38.56 kg [facility] 11-27-2020 10:53-0400 Height 134.6 cm [facility] 09-25-2020 08:29-0500 Body Temperature 98.1 [degF] [facility] 09-25-2020 08:29-0500 BP Diastolic 58 mm[Hg] [facility] 09-25-2020 08:29-0500 BP Systolic 92 mm[Hg] [facility] 09-25-2020 08:29-0500 Pulse (Heart Rate) 78 /min [facility] 09-25-2020 08:29-0500 Pulse Oximetry 94 % [facility] 09-25-2020 08:29-0500 Respiratory Rate 16 /min [facility] 09-23-2020 22:27-0500 BMI (Body Mass Index) 19.77 kg/m2 [facility] 01-25-2021 22:27-0500 Body weight 37.2 kg Curtis Martinez [facility] 09-19-2020 09:33-0500 BP Diastolic 85 mm[Hg] Ruma Godwin [facility] 09-19-2020 09:33-0500 BP Systolic 123 mm[Hg] Ruma Godwin [facility] 09-19-2020 09:33-0500 Pulse (Heart Rate) 118 /min [facility] 08-13-2020 15:00-0500 Body Temperature 98.8 [degF] Jose Juan Rowland [facility] 08-13-2020 15:00-0500 BP Diastolic 68 mm[Hg] Jose Juan Rowland [facility] 08-13-2020 15:00-0500 BP Systolic 102 mm[Hg] Jose Juan Rowland [facility] 08-13-2020 15:00-0500 Pulse (Heart Rate) 101 /min Jose Juan Rowland [facility] 08-13-2020 15:00-0500 Pulse Oximetry 100 % Jose Juan Rowland [facility] 08-13-2020 15:00-0500 Respiratory Rate 18 /min Jose Juan Rowland [facility] 08-13-2020 10:16-0500 BMI (Body Mass Index) 19.29 kg/m2 Jose Juan Rowland [facility] 08-13-2020 10:16-0500 Body weight 36.29 kg Jose Juan Rowland [facility] 08-13-2020 10:16-0500 Height 137.2 cm Jose Juan Rowland [facility] 05-30-2020 09:57-0400 BP Diastolic 70 mm[Hg] [facility] 05-30-2020 09:57-0400 BP Systolic 112 mm[Hg] [facility] 05-30-2020 09:57-0400 Pulse (Heart Rate) 103 /min [facility] 03-22-2020 15:34-0400 Body Temperature 97.9 [degF] Narcisa [facility] 03-22-2020 15:34-0400 BP Diastolic 69 mm[Hg] Narcisa [facility] 03-22-2020 15:34-0400 BP Systolic 94 mm[Hg] Narcisa [facility] 03-22-2020 15:34-0400 Pulse (Heart Rate) 96 /min Narcisa [facility] 03-22-2020 15:34-0400 [facility] 03-22-2020 15:34-0400 Respiratory Rate 20 /min Narcisa [facility] 03-21-2020 14:13-0400 BMI (Body Mass Index) 21.28 kg/m2 Narcisa [facility] 03-21-2020 14:13-0400 Body weight 38.56 kg Narcisa [facility] 03-21-2020 14:13-0400 Height 134.6 cm Narcisa [facility] 02-14-2020 11:09-0400 Body Temperature 100.29 [degF] [facility]-14-[facility] 11:09-0400 BP Diastolic 76 mm[Hg] Precious [facility] 02-14-2020 11:09-0400 BP Systolic 128 mm[Hg] [facility] 02-14-2020 11:09-0400 Pulse (Heart Rate) 125 /min Precious [facility] 02-14-2020 11:09-0400 Pulse Oximetry 98 % [facility] 02-14-2020 08:50-0400 Respiratory Rate 16 /min [facility] 02-12-2020 12:54-0400 BMI (Body Mass Index) 20.77 kg/m2 Precious [facility] 02-12-2020 12:54-0400 Body weight 37.65 kg [facility] 02-12-2020 12:54-0400 Height 134.6 cm Precious [facility] 02-08-2020 11:07-0400 BP Diastolic 63 mm[Hg] Ruma Godwin [facility] 02-08-2020 11:07-0400 BP Systolic 92 mm[Hg] [facility] 02-08-2020 11:07-0400 Pulse (Heart Rate) 73 /min Ruma Godwin [facility] 01-22-2020 15:36-0400 BP Diastolic 61 mm[Hg] Savannah Garza [facility] 01-22-2020 15:36-0400 BP Systolic 100 mm[Hg] Akualio Greg [facility] 01-22-2020 15:33-0400 BMI (Body Mass Index) 20.01 kg/m2 Michaelcarlalio Weimiranda [facility] 01-22-2020 15:33-0400 Body Temperature 98.91 [degF] [facility] 01-22-2020 15:33-0400 Body weight 37.65 kg Savannah Garza [facility] 01-22-2020 15:33-0400 Height 137.2 cm [facility] 01-22-2020 15:33-0400 Pulse (Heart Rate) 104 /min [facility] 01-22-2020 15:33-0400 Pulse Oximetry 99 % [facility] 01-22-2020 15:33-0400 Respiratory Rate 18 /min [facility] 10-24-2019 11:43-0500 Body Temperature 98.29 [degF] [facility] 10-24-2019 11:43-0500 BP Diastolic 70 mm[Hg] [facility] 10-24-2019 11:43-0500 BP Systolic 105 mm[Hg] [facility] 10-24-2019 11:43-0500 Pulse (Heart Rate) 95 /min [facility] 10-24-2019 11:43-0500 Pulse Oximetry 99 % [facility] 10-24-2019 11:43-0500 Respiratory Rate 21 /min [facility] 10-21-2019 12:50-0500 BMI (Body Mass Index) 20.01 kg/m2 [facility] 10-21-2019 12:50-0500 Body weight 37.65 kg [facility] 10-21-2019 12:50-0500 Height 137.2 cm [facility] 10-19-2019 10:59-0500 BP Diastolic 62 mm[Hg] [facility] 10-19-2019 10:59-0500 BP Systolic 102 mm[Hg] [facility] 10-19-2019 10:59-0500 Pulse (Heart Rate) 106 /min [facility] 09-27-2019 08:45-0500 Pulse Oximetry 98 % Barron Antwan [facility] 09-27-2019 08:01-0500 Body Temperature 98.1 [degF] Barron Moncada [facility] 09-27-2019 08:01-0500 BP Diastolic 59 mm[Hg] Barron Moncada [facility] 09-27-2019 08:01-0500 BP Systolic 89 mm[Hg] Barron Moncada [facility] 09-27-2019 08:01-0500 Pulse (Heart Rate) 88 /min Barronlio Moncada [facility] 09-27-2019 08:01-0500 Respiratory Rate 24 /min Barronlio Moncada [facility] 09-27-2019 06:00-0500 BMI (Body Mass Index) 24.28 kg/m2 Barron [facility] 09-27-2019 06:00-0500 Body weight 44 kg [facility] Comment on above: bed weight 09-20-2019 08:40-0500 Height 134.6 cm Barronlio Moncada [facility] 09-20-2019 08:02-0500 Respiratory rate 0 /min Barronlio Moncada [facility] 06-29-2019 11:22-0400 BMI (Body Mass Index) 23.03 kg/m2 [facility] 06-29-2019 11:22-0400 Body weight 41.73 kg [facility] 06-29-2019 11:22-0400 Height 134.6 cm [facility] 05-09-2019 10:04-0400 BMI (Body Mass Index) 23.03 kg/m2 [facility] [facility] 10:04-0400 Body weight 41.73 kg [facility] 05-09-2019 10:04-0400 BP Diastolic 62 mm[Hg] [facility] 05-09-2019 10:04-0400 BP Systolic 85 mm[Hg] [facility] 05-09-2019 10:04-0400 Height 134.6 cm [facility] 05-09-2019 10:04-0400 Pulse (Heart Rate) 106 /min [facility] 05-04-2019 20:02-0400 BP Diastolic 68 mm[Hg] Kj Moncada [facility] 05-04-2019 20:02-0400 BP Systolic 116 mm[Hg] Kj Moncada [facility] 05-04-2019 20:02-0400 Pulse (Heart Rate) 108 /min Kj Moncada [facility] 05-04-2019 20:02-0400 Pulse Oximetry 99 % Kj Moncada [facility] 05-04-2019 20:02-0400 Respiratory Rate 16 /min Kj Moncada [facility] 05-04-2019 15:01-0400 BMI (Body Mass Index) 23.15 kg/m2 Kj Moncada [facility] 05-04-2019 15:01-0400 Body Temperature 98.49 [degF] Kj Moncada [facility] 05-04-2019 15:-0400 Body weight 41.96 kg Kj Moncada [facility] 05-04-2019 15:0400 Height 134.6 cm Kj Moncada [facility] 03-09-2019 10:32-0400 BP Diastolic 80 mm[Hg] [facility] 03-09-2019 10:32-0400 BP Systolic 121 mm[Hg] Ruma [facility] 03-09-2019 10:32-0400 Pulse (Heart Rate) 111 /min [facility] 02-01-2019 11:11-0400 BMI (Body Mass Index) 22.91 kg/m2 Yany [facility] 02-01-2019 11:11-0400 Body weight 43.09 [address] [facility] 02-01-2019 11:11-0400 BP Diastolic 70 mm[Hg] [facility] 02-01-2019 11:11-0400 BP Systolic 103 mm[Hg] [facility] 02-01-2019 11:11-0400 Pulse (Heart Rate) 116 /min [facility] Comment on above: This is baseline for pt. 01-12-2019 10:36-0400 Body Temperature 97.5 [degF] Stephy Cisse [facility] 01-12-2019 10:36-0400 BP Diastolic 53 mm[Hg] Stephy Cisse [facility] 01-12-2019 10:36-0400 BP Systolic 89 mm[Hg] Stephy Cisse [facility] 01-12-2019 10:36-0400 Height 137.2 cm Stephy Cisse [facility] 01-12-2019 10:36-0400 Pulse (Heart Rate) 102 /min Stephy Cisse [facility] 01-12-2019 10:36-0400 Pulse Oximetry 94 % Stephy Cisse [facility] 01-12-2019 10:36-0400 Respiratory Rate 18 /min Stephy Cisse [facility] 12-05-2018 09:35-0400 Respiratory Rate 18 /min Fernando [facility] 12-05-2018 08:03-0400 Body Temperature 98.8 [degF] Fernando [facility] 12-05-2018 08:03-0400 BP Diastolic 64 mm[Hg] Fernando [facility] 12-05-2018 08:03-0400 BP Systolic 104 mm[Hg] Fernando [facility] 12-05-2018 08:03-0400 Pulse (Heart Rate) 99 /min Fernando [facility] 12-05-2018 08:03-0400 Pulse Oximetry 98 % Fernando [facility] 12-02-2018 10:23-0400 BMI (Body Mass Index) 21.69 kg/m2 Fernando [facility] 12-02-2018 10:23-0400 Height 137.2 cm Fernando [facility] 12-02-2018 10:23-0400 Weight 40.8 kg Fernando [facility] 11-28-2018 19:30-0400 Respiratory rate 0 /min Fernando [facility] 11-21-2018 10:16-0400 BMI (Body Mass Index) 22.53 kg/m2 [facility] 11-21-2018 10:16-0400 BP Diastolic 66 mm[Hg] [facility] 11-21-2018 10:16-0400 BP Systolic 96 mm[Hg] [facility] 11-21-2018 10:16-0400 Height 134.6 cm [facility] 11-21-2018 10:16-0400 Pulse (Heart Rate) 99 /min [facility] 11-21-2018 10:16-0400 Weight 40.82 kg [facility] 10-07-2018 20:28-0500 BP Diastolic 80 mm[Hg] Magalie Kilpatrick [facility] 10-07-2018 20:28-0500 BP Systolic 119 mm[Hg] Magalie Kilpatrick [facility] 10-07-2018 20:28-0500 Pulse (Heart Rate) 84 /min Magalie Kilpatrick [facility] 10-07-2018 20:28-0500 Pulse Oximetry 93 % Magalie Finesse [facility] 10-07-2018 20:28-0500 Respiratory Rate 16 /min Magalie Finesse [facility] 10-07-2018 15:53-0500 BMI (Body Mass Index) 22.53 kg/m2 Magalie Kilpatrick [facility] 10-07-2018 15:53-0500 Body Temperature 98.4 [degF] Magalie Kilpatrick [facility] 10-07-2018 15:53-0500 Height 134.6 cm Magalie Kilpatrick [facility] 10-07-2018 15:53-0500 Weight 40.82 kg Magalie Kilpatrick [facility] 04-21-2018 09:52-0400 BP Diastolic 59 mm[Hg] Ruma Godwin [facility] 04-21-2018 09:52-0400 BP Systolic 93 mm[Hg] Ruma Godwin [facility] 04-21-2018 09:52-0400 Pulse (Heart Rate) 95 /[facility] 01-19-2018 10:10-0400 BP Diastolic 69 mm[Hg] Yany Wright [facility] 01-19-2018 10:10-0400 BP Systolic 102 mm[Hg] Yany [facility] 01-19-2018 10:10-0400 Pulse (Heart Rate) 94 /min Yany [facility] 01-12-2018 11:33-0400 Body Temperature 98.2 [degF] Stephy Cisse [facility] 01-12-2018 11:33-0400 BP Diastolic 63 mm[Hg] Stephy Cisse [facility] 01-12-2018 11:33-0400 BP Systolic 88 mm[Hg] Stephy Cisse [facility] 01-12-2018 11:33-0400 Pulse (Heart Rate) 90 /min Stephy Cisse [facility] 01-12-2018 11:33-0400 Pulse Oximetry 98 % Stephy Cisse [facility] 01-12-2018 11:33-0400 Respiratory Rate 16 /min Stephy Cisse [facility] 01-07-2018 10:39-0400 BMI (Body Mass Index) 21.7 kg/m2 [facility] 01-07-2018 10:39-0400 BP Diastolic 68 mm[Hg] [facility] 01-07-2018 10:39-0400 BP Systolic 103 mm[Hg] [facility]a [facility] 01-07-2018 10:39-0400 Height 137.2 cm [facility] 01-07-2018 10:39-0400 Pulse (Heart Rate) 91 /min [facility] 01-07-2018 10:39-0400 Weight 40.82 kg Ruma Godwin [facility] 09-17-2017 09:57-0500 BMI (Body Mass Index) 21.7 kg/m2 Ruma Godwin [facility] Work Phone: 09-17-2017 09:57-0500 BP Diastolic 70 mm[Hg] Ruma Godwin [facility] Work Phone: 09-17-2017 09:57-0500 BP Systolic 102 mm[Hg] Ruma Godwin [facility] Work Phone: 09-17-2017 09:57-0500 Height 137.2 cm Ruma Godwin [facility] Work Phone: 09-17-2017 09:57-0500 Pulse (Heart Rate) 105 /min Ruma Godwin [facility] Work Phone: 09-17-2017 09:57-0500 Weight 40.82 kg Rumajamir Godwin [facility] Work Phone: 07-26-2017 13:48-0500 BP Diastolic 73 mm[Hg] Yany Wright [facility] Work Phone: 07-26-2017 13:48-0500 BP Systolic 106 mm[Hg] Yany Wright [facility] Work Phone: 07-26-2017 13:48-0500 Pulse (Heart Rate) 118 /min Yany Wright [facility] Work Phone: 07-26-2017 10:17-0500 BMI (Body Mass Index) 21.7 kg/m2 [facility] Work Phone: 07-26-2017 10:17-0500 BP Diastolic 58 mm[Hg] [facility] Work Phone: 07-26-2017 10:17-0500 BP Systolic 90 mm[Hg] [facility] Work Phone: 07-26-2017 10:17-0500 Height 137.2 cm [facility] Work Phone: 07-26-2017 10:17-0500 Pulse (Heart Rate) 112 /min [facility] 07-26-2017 10:17-0500 Weight 40.82 kg [facility] Work Phone: 07-15-2017 15:15-0500 Body Temperature 97.5 [degF] Stephy Cisse [facility] Work Phone: 07-15-2017 15:15-0500 BP Diastolic 73 mm[Hg] Stephy Cisse [facility] Work Phone: 07-15-2017 15:15-0500 BP Systolic 106 mm[Hg] Stephy Cisse [facility] Work Phone: 07-15-2017 15:15-0500 Pulse (Heart Rate) 67 /min Stephy Cisse [facility] Work Phone: 07-15-2017 15:15-0500 Pulse Oximetry 98 % Stephy Cisse [facility] Work Phone: 07-15-2017 15:15-0500 Respiratory Rate 24 /min Stephy Cisse [facility] Work Phone: 06-01-2017 10:57-0400 BMI (Body Mass Index) 22.53 kg/m2 Ruma Godwin [facility] Work Phone: 06-01-2017 10:57-0400 BP Diastolic 72 mm[Hg] Ruma Godwin [facility] Work Phone: 06-01-2017 10:57-0400 BP Systolic 101 mm[Hg] Ruma Godwin [facility] Work Phone: 06-01-2017 10:57-0400 Height 134.6 cm Ruma Godwin [facility] Work Phone: 06-01-2017 10:57-0400 Pulse (Heart Rate) 105 /min Ruma Godwin [facility] Work Phone: 06-01-2017 10:57-0400 Weight 40.82 kg Ruma Godwin [facility] Work Phone: 04-26-2017 13:43-0400 BP Diastolic 77 mm[Hg] Yany Wright [facility] Work Phone: 04-26-2017 13:43-0400 BP Systolic 108 mm[Hg] Yany Wright [facility] Work Phone: 04-26-2017 13:43-0400 Pulse (Heart Rate) 99 /min Yany Wright [facility] Work Phone: 04-14-2017 15:23-0400 Body Temperature 97.39 [degF] Stephy Cisse [facility] Work Phone: 04-14-2017 15:23-0400 BP Diastolic 72 mm[Hg] Stephy Cisse [facility] Work Phone: 04-14-2017 15:23-0400 BP Systolic 107 mm[Hg] Stephy Cisse [facility] Work Phone: 04-14-2017 15:23-0400 Pulse (Heart Rate) 85 /min Stephy Cisse [facility] Work Phone: 04-14-2017 15:23-0400 Pulse Oximetry 96 % Stephy Cisse [facility] Work Phone: 04-14-2017 15:23-0400 Respiratory Rate 18 /min Stephy Cisse [facility] Work Phone: Encounters Encounter Date Encounter Type Care Provider Facility Start: 05-21-2025 ambulatory Shima Gamble ty:[facility] Start: 05-20-2025 Emergency department patient visit Mary Oh Facility:[facility] Start: 05-17-2025 ambulatory Colette Gomez ity:[facility] Start: 05-17-2025 ambulatory Colette Gomez ity:[facility] Start: 05-14-2025 End: 05-14-[address] Shima Krishnamurthy MD -Medical Out Work Phone: Start: 05-14-2025 End: 05-14-[address] Colette Goode MD Work Phone: -Medical Out Start: 05-10-2025 ambulatory Colette Gomez [facility]y:[facility] Start: 05-10-2025 Non-patient / Non-visit Onelia Gaspar [facility] Start: 05-10-2025 Registered Recurring Jaimee Marshall RETAIL SERVICE REPRESENTATIVE-C [facility] Work Phone: Start: 05-07-2025 End: 05-07-[address] Shima Krishnamurthy MD -Medical Out Work Phone: Start: 05-07-2025 End: 05-07-[address] Colette Goode MD Work Phone: -Medical Out Start: 05-03-2025 ambulatory Uziel Gomezi ty:[facility] Start: 05-03-2025 Non-patient / Non-visit Dr. Margie Inman MD -[facility] Work Phone: Start: 05-03-2025 Registered Recurring [facility] Work Phone: Start: 05-01-2025 End: 05-01-[address] Colette Goode MD Work Phone: -Radiology [facility] Start: 05-01-2025 End: 05-01-[address] Shima Krishnamurthy MD -Radiology [facility] Work Phone: Start: 05-01-2025 End: 05-01-2025 ambulatory Shima Krishnamurthy Facility:[facility] Start: 04-23-2025 End: 04-23-2025 Orders Only Ruma Godwin [facility] Work Phone: [facility] Neuro[facility] Comment on above: Spastic cerebral pal sy (HCC) Start: 04-19-2025 ambulatory Colette Gomez ity:[facility] Start: 04-19-2025 Non-patient / Non-visit Onelia [facility] Start: 04-19-2025 End: 04-29-[address] Colette Goode MD Work Phone: -[facility] Start: 04-19-2025 End: 04-29-2025 Discharged Recurring Jaimee Marshall NP-C -Wound Healing Jorge [facility] Work Phone: Start: 2025 ambulatory Colette Gomez ity:[facility] Start: 2025 Non-patient / Non-visit Onelia Gaspar [facility] Start: 04-11-2025 ambulatory MARIELLE DUQUE [facility] Start: 04-08-2025 End: 04-09-2025 Refill Yany Wright ACTIVITIES ATTENDANT Work Phone: [facility] Comment on above: Intractable symptoma tic generalized epilepsy (HCC) Start: 04-06-2025 End: 04-06-2025 Emergency department patient visit Dr. Colette Goode MD Work Phone: -Emergency Department Work Phone: Start: 04-05-2025 ambulatory Colette Gomez ity:[facility] Start: 04-05-2025 Non-patient / Non-visit Onelia Gaspar [facility] Start: 04-05-2025 End: 04-05-[address] Colette Goode MD Work Phone: -Laboratory Start: 04-05-2025 End: 04-05-2025 Patient encounter procedure Onelia Gaspar PA -Laboratory Work Phone: Start: 04-05-2025 Registered Recurring Jaimee CASIANO -[facility] Work Phone: Start: 04-05-2025 End: 04-05-2025 ambulatory Onelia Gaspar Facility:[facility] Start: 03-29-2025 ambulatory Colette Gomez ity:[facility] Start: 03-29-2025 Non-patient / Non-visit Onelia Gaspar [facility] Start: 03-29-2025 End: 03-29-[address] 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-C -Wound Healing [facility] Work Phone: Start: 03-22-2025 ambulatory Colette Gomez ity:[facility] Start: 03-22-2025 Non-patient / Non-visit Onelia Gaspar PA -[facility] Start: 03-14-2025 Non-patient / Non-visit Jaimee Ronny roy NP-C -F [facility] Start: 03-10-2025 ambulatory DAVID Eli MD~[id number] Facility:[facility] Start: 03-06-2025 End: 05-09-2025 ambulatory MARGA GRESHAM [employer]ER~[id number] Facility:[facility] Start: 02-28-2025 ambulatory LALI ESCALERA MD~[id number] Facility:[facility] Start: 02-13-2025 End: 02-17-2025 ambulatory CELENA FIELDS [facility] Start: 02-13-2025 End: 02-13-2025 Patient encounter procedure Celena Fields MD Work Phone: [facility] Comment on above: Spasticity [R25.2] ( Primary Dx); 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HCC) Start: 01-31-2025 End: 02-18-2025 Refill Boubacar Mclean MA [facility] Comment on above: Intractable symptoma tic generalized epilepsy (HCC) Start: 01-29-2025 End: 01-29-2025 ambulatory DAVID HERNANDEZ MD~[id number] Facility:[facility] Start: 01-11-2025 End: 01-11-2025 ambulatory LALI ESCALERA MD~[id number] Facility:[facility] Start: 01-04-2025 End: 01-06-[address] MARIELLE DUQUE MD Facility:[facility] Start: 12-21-2024 End: 12-21-2024 ambulatory LALI ESCALERA MD~[id number] Facility:[facility] Start: 12-14-2024 End: 12-14-2024 Office outpatient visit 25 minutes Ruma Godwin ACTIVITIES ATTENDANT Work Phone: [facility] Comment on above: Spasticity [R25.2] ( Primary Dx); 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HCC) Start: 12-14-2024 End: 12-18-2024 ambulatory [facility] Start: 11-07-2024 End: 11-07-2024 Patient encounter procedure Celena Fields MD Work Phone: [facility] Comment on above: Spasticity (Primary Dx) Start: 11-07-2024 End: 11-11-2024 [facility] Start: 11-06-2024 End: 11-06-2024 Office outpatient visit 25 minutes Yany Kiya Wright ACTIVITIES ATTENDANT Work Phone: [facility] Comment on above: 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); Seizure disorder (HCC); Acute encephalopathy; 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HCC); Muscle spasticity; Hypoxia Start: 11-06-2024 End: 11-10-2024 ambulatory YANY KIYA WRIGHT [facility] Start: 08-14-2024 End: 08-14-2024 Office outpatient visit 25 minutes Yany Kiya Wright ACTIVITIES ATTENDANT Work Phone: [facility] Comment on above: 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); 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HCC); Acute on chronic respiratory failure with hypoxia and hypercapnia (HCC) Start: 08-14-2024 End: 08-14-2024 ambulatory YANY KIYA WRIGHT [facility] Start: 08-07-2024 End: 08-07-2024 Coordination of care johan Arreola LPN [facility] Start: 08-04-2024 End: 08-04-2024 Refill Yany Kiya Wright ACTIVITIES ATTENDANT Work Phone: [facility] Comment on above: Seizure disorder (HC C) Start: 08-01-2024 End: 08-02-2024 Refill Carola Paul MA [facility] Comment on above: 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) Start: 07-26-2024 End: 07-26-2024 Coordination of care plan Ellyn Arreola LPN [facility] Start: 07-15-2024 End: 07-19-2024 Evaluation and management of inpatient ABELARDO MARCK ZHOU MD~[id number] Facility:[facility] Start: 07-06-2024 End: 07-06-2024 Emergency department patient visit DR~[id number] KI CORMIER MD Facility:[facility] Start: 06-14-2024 End: 06-14-2024 ambulatory MARIELLE [facility] Start: 05-26-2024 End: 05-26-2024 Coordination of care plan Ellyn Arreola LPN [facility] Start: 04-21-2024 End: 05-16-2024 Evaluation and management of inpatient RENETTA STACK [facility] Start: 04-17-2024 End: 04-17-2024 Coordination of care plan Ellyn Arreola LPN [facility] Start: 04-05-2024 End: 04-05-2024 Refill Elroy Lopez RN [facility] Physician [facility], Neuroscience Comment on above: Spasticity (Primary Dx); Pain Start: 04-04-2024 End: 04-04-2024 Office outpatient visit 40 minutes Yany Wright CNP Work Phone: [facility] Comment on above: 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); Seizure disorder (HCC); 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HCC); Encephalopathy; Hypoxia Start: 03-27-2024 End: 03-27-2024 Refill Physician [facility] Comment on above: Spastic cerebral pal sy (HCC) Start: 03-22-2024 End: 03-22-2024 Office outpatient visit 25 minutes Stephy Cisse MD Work Phone: [facility] Comment on above: Restrictive lung dis ease due to kyphoscoliosis (Primary Dx); Chronic pulmonary aspiration, sequela Start: 03-14-2024 End: 03-14-2024 Patient encounter procedure Ruma Godwin ACTIVITIES ATTENDANT Work Phone: [facility] Comment on above: Spasticity (Primary Dx); 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HCC) Start: 03-14-2024 End: 03-14-2024 ambulatory MARIELLE DUQUE [facility] Start: 02-25-2024 End: 03-12-2024 Refill Yany Wright ACTIVITIES ATTENDANT Work Phone: [facility] Start: 02-21-2024 End: 02-21-2024 Refill Janet Obrien RN [facility] Comment on above: Intractable symptoma tic generalized epilepsy (HCC); 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) Start: 01-18-2024 End: 01-18-2024 Office outpatient visit 25 minutes Richar Talbert MD Work Phone: [facility] Comment on above: 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); Mood disturbance Start: 01-13-2024 End: 01-17-2024 ambulatory [facility] Start: 01-13-2024 End: 01-13-2024 ambulatory Ruma Godwin ACTIVITIES ATTENDANT Work Phone: [facility] Comment on above: Muscle spasticity (P rimary Dx); Spasticity Start: 01-11-2024 Documentation procedure [facility] Comment on above: Occupational Therapy ; Neuro Start: 01-07-2024 Documentation procedure [facility] Start: 01-06-2024 Refill Yany Hills s ACTIVITIES ATTENDANT Work Phone: [facility] Physician [facility], Neuroscience Comment on above: Intractable symptoma tic generalized epilepsy (HCC) Start: 12-28-2023 End: 01-01-2024 ambulatory [facility] Start: 12-28-2023 End: 12-28-2023 ambulatory Ruma Godwin ACTIVITIES ATTENDANT Work Phone: [facility] Comment on above: Spasticity; 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HCC) Start: 12-27-2023 Refill Yany Kiya Yate s ACTIVITIES ATTENDANT Work Phone: [facility] Start: 12-24-2023 Refill Yany Kiya Yate s ACTIVITIES ATTENDANT Work Phone: [facility] Start: 12-13-2023 End: 12-13-2023 Office outpatient visit 25 minutes Ruma Godwin ACTIVITIES ATTENDANT Work Phone: [facility] Comment on above: Spasticity (Primary Dx); 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HCC) Start: 11-26-2023 End: 11-26-2023 Office outpatient new 45 minutes Stephy Cisse MD Work Phone: [facility] Comment on above: Restrictive lung dis ease due to scoliosis (Primary Dx); Chronic pulmonary aspiration, sequela Start: 11-10-2023 End: 11-10-2023 Patient encounter procedure Celena Fields MD Work Phone: [facility] Neurology Comment on above: Spasticity (Primary Dx) Start: 09-20-2023 Documentation procedure Thea gardner MA [facility] Start: 09-13-2023 End: 09-13-2023 Office outpatient visit 40 minutes Yany Kiya Wright ACTIVITIES ATTENDANT Work Phone: [facility] Comment on above: 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) (Primary Dx); Intractable symptomatic generalized epilepsy (HCC); 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HCC); Hypoxia Start: 08-29-2023 Refill Yany Kiya Yate s ACTIVITIES ATTENDANT Work Phone: [facility] Start: 08-26-2023 Refill C Yasmeen sierra ACTIVITIES ATTENDANT Work Phone: [facility] Comment on above: Spastic cerebral pal sy (HCC) Start: 08-20-2023 Refill Yany Kiya Yate s ACTIVITIES ATTENDANT Work Phone: [facility] Comment on above: 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) Start: 08-02-2023 Refill Yany Kiya Yate s ACTIVITIES ATTENDANT Work Phone: [facility] Start: 07-30-2023 Refill Yany Kiya Yate s ACTIVITIES ATTENDANT Work Phone: [facility] Comment on above: Intractable symptoma tic generalized epilepsy (HCC) Start: 06-21-2023 Refill Yany Kiya Yate s ACTIVITIES ATTENDANT Work Phone: [facility] Start: 06-12-2023 Refill Yany Kiya Yate s ACTIVITIES ATTENDANT Work Phone: [facility] Start: 06-01-2023 End: 06-01-2023 Patient encounter procedure Celena Fields MD Work Phone: [facility] Physician [facility], Neuroscience Comment on above: Spasticity (Primary Dx); 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HCC) Start: 04-21-2023 End: 04-21-2023 Office outpatient visit 15 minutes Celena Fields MD Work Phone: [facility] Comment on above: Cervical dystonia Start: 02-19-2023 Refill Yany Kiya Yate s ACTIVITIES ATTENDANT Work Phone: [facility], Neuroscience Comment on above: Intractable symptoma tic generalized epilepsy (HCC) Start: 02-02-2023 End: 02-02-2023 Patient encounter procedure Celena Fields MD Work Phone: [facility], Neuroscience Comment on above: Spasticity (Primary Dx); Cerebral palsy, unspecified type (HCC) Start: 01-18-2023 Orders Only Yany Kiya Yate s ACTIVITIES ATTENDANT Work Phone: [facility] Start: 12-10-2022 Refill Chacorta Ansari MA [facility] Start: 12-01-2022 End: 12-01-2022 Office outpatient visit 40 minutes Celena Fields MD Work Phone: [facility], Neuroscience Comment on above: Spasticity (Primary Dx); Cerebral palsy, unspecified type (HCC) Start: 11-03-2022 End: 11-09-2022 Patient encounter procedure Celena Fields MD Work Phone: [facility], Neuroscience Comment on above: Spastic cerebral pal sy (HCC) (Primary Dx); Spasm of muscle Start: 10-13-2022 End: 10-13-2022 Office outpatient visit 40 minutes Celena Fields MD Work Phone: [facility], Neuroscience Comment on above: Spasticity (Primary Dx); Cerebral palsy, unspecified type (HCC); Cervical dystonia Start: 09-22-2022 End: 09-22-2022 Office outpatient visit 40 minutes Augusto Moncada MD Work Phone: [facility], Neuroscience Comment on above: Spasticity (Primary Dx); Cerebral palsy, unspecified type (HCC) Start: 08-31-2022 Refill Yany urban CNP Work Phone: [facility], Neuroscience Comment on above: Intractable symptoma tic generalized epilepsy (HCC) Start: 08-03-2022 End: 08-03-2022 Clinical Support Elodia Riojas RN [facility], [facility] Start: 07-25-2022 End: 07-25-2022 Home visit Kenyetta Domingo RN [facility] Comment on above: SN HH OASIS DISCHARG E Start: 07-24-2022 Home visit Christine Marroquin RN [facility] Comment on above: CASE COMMUNICATION Start: 07-22-2022 End: 07-22-2022 Home visit Christine Marroquin RN [facility] Comment on above: SN HH OASIS START OF CARE Start: 07-21-2022 Documentation procedure Elodia eli RN [facility], Neuro[facility] Start: 07-20-2022 End: 07-25-2022 ambulatory MARIELLE DUQUE [facility] Start: 07-15-2022 Refill Falguni Curry RN [facility], Neuroscience Comment on above: Spastic cerebral pal sy (HCC) Start: 07-14-2022 End: 07-21-2022 Evaluation and management of inpatient Fernando Devin Camacho MD Work Phone: [facility] Start: 02-16-2022 Refill Chacorta Ansari MA [facility] Start: 12-22-2021 End: 12-22-2021 ambulatory [facility] Facility:[facility] Start: 12-22-2021 End: 12-22-2021 Subsequent hospital visit by physician Alex Velasco MD Work Phone: [facility] Comment on above: PEG tube malfunction Start: 11-27-2021 Refill Brandi Dominguez MA [facility] Comment on above: Intractable symptoma tic generalized epilepsy (HCC) Start: 11-17-2021 End: 11-17-2021 ambulatory [facility] Facility:[facility] Start: 11-17-2021 End: 11-17-2021 Subsequent hospital visit by physician Alex Velasco MD Work Phone: [facility] Comment on above: PEG tube malfunction Start: 10-31-2021 Refill Yany Kiya Yate s ACTIVITIES ATTENDANT Work Phone: [facility] Start: 10-17-2021 Refill Yany Kiya Yate s ACTIVITIES ATTENDANT Work Phone: [facility] Start: 10-16-2021 Release of Information Provide r Not In System [facility] Historical Mapping Start: 10-16-2021 [facility] Provider Not I n System [facility] Historical Mapping Start: 08-21-2021 End: 08-21-2021 Office outpatient visit 25 minutes Donna Brush ACTIVITIES ATTENDANT Work Phone: [facility] Comment on above: Spasticity (Primary Dx); Cerebral palsy, unspecified type (HCC) Start: 08-06-2021 Refill Amaris Dunne RN [facility], Neuro[facility] Comment on above: 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) Start: 08-05-2021 Documentation procedure Amaris colunga RN [facility] Start: 08-01-2021 ambulatory YANY R WRIGHT Facility:[facility] Start: 07-31-2021 Refill Yany urban ACTIVITIES ATTENDANT Work Phone: [facility] Start: 07-08-2021 ambulatory COLETTE Gomez ity:[facility] Start: 07-08-2021 Documentation procedure Amaris colunga RN [facility] Start: 07-02-2021 Documentation procedure Yany R sen Adriana ACTIVITIES ATTENDANT Work Phone: [facility] Start: 06-20-2021 End: 06-20-2021 Office outpatient new 45 minutes Cynthia Chan ACTIVITIES ATTENDANT Work Phone: [facility] Comment on above: Cerebral palsy, unsp ecified type (HCC); Stage II pressure ulcer of right buttock (HCC) Start: 06-18-2021 End: 06-18-2021 Office outpatient visit 25 minutes Yany Wright ACTIVITIES ATTENDANT Work Phone: [facility] Comment on above: 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); Intractable symptomatic generalized epilepsy (HCC); Gastrostomy tube dysfunction (HCC); S/P percutaneous endoscopic gastrostomy (PEG) tube placement (HCC); Pain around percutaneous endoscopic gastrostomy (PEG) tube site, initial encounter; Spasticity; Hypoxia Start: 05-15-2021 Refill Julia Deshpande [facility] Comment on above: Intractable symptoma tic generalized epilepsy (HCC) Start: 05-07-2021 Refill Adrienne Anderson [facility], Neuroscience Comment on above: 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) Start: 05-01-2021 Refill Falguni Curry RN [facility], [facility]science Comment on above: Spastic cerebral pal sy (HCC) (Primary Dx) Start: 05-01-2021 End: 05-01-2021 Office outpatient visit 25 minutes Ruma Godwin ACTIVITIES ATTENDANT Work Phone: [facility] Comment on above: Spasticity (Primary Dx) Start: 04-29-2021 Refill Ila Muñiz MA [facility] Comment on above: Intractable symptoma tic generalized epilepsy (HCC) Start: 04-14-2021 Transcribe Orders Cynthia gao ACTIVITIES ATTENDANT Work Phone: [facility] Comment on above: Cerebral palsy, unsp ecified type (HCC) (Primary Dx); Stage II pressure ulcer of right buttock (HCC) Start: 02-27-2021 End: 02-27-2021 Office outpatient new 30 minutes Wilder Noland MD Work Phone: [facility] Comment on above: Pressure injury of s acral region, stage 3 (HCC) (Primary Dx) Start: 02-10-2021 End: 02-10-[address] [facility] Start: 02-10-2021 End: 02-10-2021 Office outpatient visit 25 minutes Werner Kaplan MD Work Phone: [facility] Comment on above: Pressure injury of r ight ischium, stage 3 (HCC) (Primary Dx); Other cerebral palsy (HCC); Other urinary incontinence; Incontinence of feces, unspecified fecal incontinence type; Encounter to discuss treatment options Start: 02-04-2021 End: 02-09-2021 Office outpatient new 30 minutes Werner Kaplan MD Work Phone: [facility] Comment on above: Pressure injury of r ight ischium, stage 3 (HCC) (Primary Dx) Start: 01-15-2021 End: 01-15-2021 Refill Stephy Cisse MD Work Phone: [facility] Comment on above: Restrictive lung dis ease due to kyphoscoliosis; Aspiration, chronic pulmonary, initial encounter Start: 01-13-2021 End: 01-13-[address] [facility] Start: 01-13-2021 End: 01-13-2021 Office outpatient new 45 minutes Werner Kaplan MD Work Phone: [facility] Comment on above: Other cerebral palsy (HCC) (Primary Dx); Pressure injury of right ischium, stage 3 (HCC); Other urinary incontinence; Incontinence of feces, unspecified fecal incontinence type Start: 01-09-2021 End: 01-09-2021 Office outpatient visit 25 minutes Ruma oGdwin CNP Work Phone: [facility] Comment on above: Spasticity (Primary Dx) Start: 12-23-2020 ambulatory COLETTE Gomez y:[facility] Start: 11-27-2020 End: 11-27-2020 Emergency department patient visit Rene Dwayne Dunaway Work Phone: [facility] Emergency Department Start: 10-24-2020 End: 10-24-2020 Orders Only Esther Young Work Phone: [facility] Start: 10-02-2020 End: 10-02-2020 Phys/qhp telephone evaluation 21-30 min Yany Wright Work Phone: [facility], Neuroscience Comment on above: 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); Intractable symptomatic generalized epilepsy (HCC); COVID-19; Muscle spasticity; Hypoxia Start: 09-23-2020 End: 09-25-2020 Evaluation and management of inpatient Curtis Cricket Martinez Work Phone: [facility] Comment on above: Congenital quadriple jorge (HCC) (Primary Dx); Spasticity; 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HCC); COVID-19 virus infection; Chronic respiratory failure with hypoxia (HCC) Start: 09-19-2020 End: 09-19-2020 Office outpatient visit 25 minutes Rmua Godwin Work Phone: [facility], Neuroscience Comment on above: Spasticity (Primary Dx); 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HCC) Start: 08-13-2020 End: 08-13-2020 Emergency department patient visit Jose Juan Rowland Work Phone: [facility] Medical Unit 3 Comment on above: Pressure injury of r ight buttock, stage 3 (HCC) (Primary Dx); Spastic quadriplegic cerebral palsy (HCC); Chronic respiratory failure with hypoxia (HCC); Chronic indwelling Sage catheter; Generalized epilepsy (HCC) Start: 06-17-2020 Refill Yany urban CNP Work Phone: [facility] Start: 05-30-2020 End: 05-30-2020 Office outpatient visit 25 minutes Ruma Godwin Work Phone: [facility] Comment on above: Spasticity (Primary Dx); 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HCC) Start: 03-21-2020 End: 03-22-2020 Evaluation and management of inpatient Narcisa Lockwood Work Phone: [facility] Comprehensive Medical Unit 1 Comment on above: Acute UTI (Primary D x); Wound infection; Indwelling catheter present on admission; Cerebral palsy, unspecified type (HCC); Dysphagia, unspecified type Start: 02-12-2020 End: 02-14-2020 Evaluation and management of inpatient Precious Herrera Work Phone: [facility] Comment on above: Sepsis, due to unspe cified organism, unspecified whether acute organ dysfunction present (HCC) (Primary Dx); Aspiration pneumonia, unspecified aspiration pneumonia type, unspecified laterality, unspecified part of lung (HCC); Wound infection; Sage catheter in place; Acute UTI Start: 02-08-2020 End: 02-08-2020 Office outpatient visit 25 minutes Ruma Godwin Work Phone: [facility] Comment on above: Spasticity (Primary Dx); 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HCC) Start: 01-22-2020 End: 01-22-2020 Emergency department patient visit Savannah Garza Work Phone: [facility] Emergency Department Comment on above: Occlusion of periphe rally inserted central catheter (PICC) line, initial encounter (HCC) (Primary Dx) Start: 10-21-2019 End: 10-24-2019 Evaluation and management of inpatient José Meléndez Work Phone: [facility] Comment on above: Severe sepsis (HCC) (Primary Dx); Acute UTI; Dehydration; Cerebral palsy, unspecified type (HCC); Hypernatremia Start: 10-19-2019 End: 10-19-2019 Office outpatient visit 25 minutes Ruma Godwin Work Phone: [facility] Comment on above: Spasticity (Primary Dx) Start: 10-17-2019 End: 10-17-2019 Documentation procedure Ericka Schaefer [facility] Start: 09-19-2019 End: 09-27-2019 Evaluation and management of inpatient Barron Moncada Work Phone: [facility] Comment on above: Sepsis, due to unspe cified organism, unspecified whether acute organ dysfunction present (HCC) (Primary Dx); Community acquired pneumonia, unspecified laterality; Decubitus ulcer of ischial area, right, stage IV (HCC); Acute on chronic respiratory failure with hypoxia and hypercapnia (HCC); 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HCC) Start: 06-29-2019 End: 06-29-2019 Office outpatient visit 25 minutes Ruma Godwin Work Phone: [facility] Comment on above: Spasticity (Primary Dx) Start: 06-01-2019 End: 06-01-2019 Office outpatient visit 15 minutes Wilder Noland Work Phone: [facility] Comment on above: Pressure injury of s acral region, stage 3 (HCC) (Primary Dx) Start: 05-22-2019 End: 05-22-2019 Subsequent hospital visit by physician Colette Goode Work Phone: [facility] Medicine Comment on above: Arrived Start: 05-22-2019 End: 05-22-2019 Subsequent hospital visit by physician Colette Goode Work Phone: [facility] Comment on above: Wound healing, delay ed Start: 05-09-2019 End: 05-09-2019 Office consultation new/estab patient 30 min Wilder Noland Work Phone: [facility] Comment on above: Wound healing, delay ed Start: 05-04-2019 End: 05-04-2019 Emergency department patient visit Kj Moncada Work Phone: [facility] Emergency Department Comment on above: Pressure injury of s kin, unspecified injury stage, unspecified location (Primary Dx); Cerebral palsy, unspecified type (HCC); Buttock wound, right, initial encounter Start: 03-10-2019 End: 03-10-2019 Documentation procedure Amaris Dunne [facility], [facility] Start: 03-09-2019 End: 03-09-2019 Office outpatient visit 25 minutes Ruma Godwin Work Phone: [facility] Comment on above: Spasticity (Primary Dx); Neuropathic pain Start: 02-01-2019 End: 02-01-2019 Office outpatient visit 25 minutes Yany Wright Work Phone: [facility] Comment on above: 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) (Primary Dx); Intractable symptomatic generalized epilepsy (HCC); Medication management; Spasticity; Hypoxia Start: 01-12-2019 End: 01-12-2019 Office outpatient visit 15 minutes Stephy Cisse Work Phone: [facility] Comment on above: Chronic respiratory failure with hypoxia and hypercapnia (HCC) (Primary Dx); Restrictive lung disease due to kyphoscoliosis; Chronic pulmonary aspiration, sequela Start: 11-28-2018 End: 12-05-2018 Evaluation and management of inpatient Fernando Mcmullen Work Phone: [facility] 1 Comment on above: Sepsis, due to unspe cified organism (HCC) (Primary Dx); Hypernatremia; Acute UTI; Pressure injury of skin of sacral region, unspecified injury stage; Decubitus ulcer of ischial area, right, stage IV (HCC) Start: 11-21-2018 End: 11-21-2018 Office outpatient visit 40 minutes Ruma Godwin Work Phone: [facility] Comment on above: Spasticity (Primary Dx); Other cerebral palsy (HCC) Start: 10-07-2018 End: 10-07-2018 Emergency department patient visit Magalie Kilpatrick Work Phone: [facility] Emergency Department Comment on above: Acute sinusitis, rec urrence not specified, unspecified location (Primary Dx) Start: 08-12-2018 End: 08-15-2018 Patient encounter procedure DEBORA HART [facility] Start: 05-06-2018 End: 05-06-2018 Patient encounter Fidencio Art [facility] Start: 05-06-2018 Refill Yany urban ACTIVITIES ATTENDANT Work Phone: [facility] Comment on above: Intractable symptoma tic generalized epilepsy (HCC) Start: 04-21-2018 End: 04-21-2018 Office outpatient visit 25 minutes Ruma Godwin Work Phone: [facility] Start: 02-03-2018 Ambulatory [facility] Start: 01-20-2018 Ambulatory [facility] Start: 01-19-2018 End: 01-19-2018 Office/outpatient visit, est, level 4 Yany Wright Work Phone: [facility] Start: 01-12-2018 End: 01-12-2018 Office/outpatient visit, est, level 3 Stephy Cisse Work Phone: [facility] Start: 01-07-2018 End: 01-07-2018 Office/outpatient visit, est, level 4 Ruma Godwin Work Phone: [facility] Start: 09-17-2017 Office/outpatient vi sit, est, level 4 Ruma Godwin Work Phone: [facility] Start: 08-02-2017 End: 08-02-2017 Ambulatory Nikhil [facility] Work Phone: [facility] Start: 07-26-2017 Office outpatient vi sit 25 minutes Yany Kiya Wright Work Phone: [facility] Start: 07-26-2017 End: 07-26-2017 Ambulatory Nikhil [facility] Work Phone: [facility] Start: 07-26-2017 Office outpatient ne w 30 minutes Stephy Cisse Work Phone: [facility] Start: 07-15-2017 Office outpatient vi sit 15 minutes Stephy Cisse Work Phone: [facility] Start: 06-01-2017 End: 06-01-2017 Office outpatient visit 25 minutes Ruma Godwin Work Phone: [facility] Comment on above: Spastic cerebral pal sy (HCC);Spasticity Start: 04-27-2017 Ambulatory Vika Addison [facility] Start: 04-26-2017 End: 04-26-2017 Office outpatient visit 15 minutes Yany Kiya Wright Work Phone: [facility] Comment on above: Spastic cerebral pal sy (HCC) (Primary Dx);Intractable symptomatic generalized epilepsy (HCC);Hypoxia Start: 04-22-2017 End: 04-22-2017 Emergency department patient visit [facility] Facility:[place] Start: 04-14-2017 Office/outpatient vi sit, new, level 5 Stephy Cisse Work Phone: [facility] Procedures Date Procedure Procedure Detail [...] MD Work Phone: Start: 07-17-2022 Glucose measurement [facility] Work Phone: Start: 07-17-2022 Glucose measurement [facility] Work Phone: Start: 07-17-2022 Assay of magnesium Stone Faria MD Work Phone: Start: 07-17-2022 Glucose measurement [facility] Work Phone: Start: 07-17-2022 Adult depression screening assessment Elodia Riojas RN Start: 07-16-2022 Glucose measurement [facility] Work Phone: Start: 07-16-2022 Glucose measurement [facility] Work Phone: Start: 07-16-2022 Electrocardiogram [facility] Work Phone: Start: 07-16-2022 End: 07-16-2022 Culture bacterial blood aerobic w/id isolates Kemal Barber DO Work Phone: Start: 07-16-2022 Ct abdomen & pelvis w/contrast material Zeke Turk CNP Work Phone: Start: 07-16-2022 Glucose measurement [facility] Work Phone: Start: 07-16-2022 End: 07-16-2022 Assay of magnesium Stone Faria MD Work Phone: Start: 07-16-2022 Radiologic exam chest single view Ricardo massey Tasha Valentin ACTIVITIES ATTENDANT Work Phone: Start: 07-16-2022 Glucose measurement [facility] Work Phone: Start: 07-16-2022 Glucose measurement [facility] Work Phone: Start: 07-15-2022 Glucose measurement [facility] Work Phone: Start: 07-15-2022 Glucose measurement [facility] Work Phone: Start: 07-15-2022 Radiologic exam abdomen 1 view Kemal Fuc hs DO Work Phone: Start: 07-15-2022 XR OR FLUOROSCOPY TIME Peter Portillo MD Work Phone: Start: 07-15-2022 End: 07-15-2022 Cul bact xcpt urine blood/stool aerobic isol Peter Portillo MD Work Phone: Start: 07-15-2022 End: 07-15-2022 INTRATHECAL PUMP REMOVAL Peter Portillo MD Work Phone: Start: 07-15-2022 detection examination [facility] Phys[facility] Work Phone: Start: 07-15-2022 Blood typing serologic abo Fredo denis ACTIVITIES ATTENDANT Work Phone: Start: 07-15-2022 VALLE TOP Triage Protocol Emergency MD Start: 07-15-2022 LAVENDER TOP Triage Protocol Emergency MD Start: 07-15-2022 LIGHT BLUE TOP Triage Protocol Emergency MD Start: 07-15-2022 LIGHT GREEN TOP Triage Protocol Emergency MD Start: 07-15-2022 MINT GREEN TOP Triage Protocol Emergency MD Start: 07-15-2022 Prothrombin time Peter Portillo MD Work Phone: Start: 07-15-2022 RAINBOW DRAW Triage Protocol Emergency Start: 07-15-2022 Ecg routine ecg w/least 12 lds trcg only w/o i&r Stone Faria MD Work Phone: Start: 07-15-2022 Radex spine lumbosacral 2/3 views Jenf dhara Baig [facility] Work Phone: Start: 07-15-2022 End: 07-15-2022 Basic metabolic panel calcium total Magalie Ross MD Work Phone: Start: 07-15-2022 C-reactive protein Adrienne Baig [facility] Work Phone: Start: 12-22-2021 Esophagogastroduodenoscopy transoral diagnostic [...] Dunaway Work Phone: Start: 09-24-2020 Basic metabolic 2000 panel - Serum or Plasma Kendal Chaudhari Work Phone: Start: 09-24-2020 Complete blood count (hemogram) panel - Blood by Automated count Kendal Hernandez Fara Work Phone: Start: 09-23-2020 Basic metabolic 2000 panel - Serum or Plasma Linda Greene Work Phone: Start: 09-23-2020 Complete blood count with white cell differential, automated Linda Greene Work Phone: Start: 09-23-2020 Complete blood count with white cell differential, manual Linda Greene Work Phone: Start: 09-23-2020 VALLE TOP Anujleila Grayson Work Phone: Start: 09-23-2020 LIGHT BLUE TOP Anujjuvenal Grayson Work Phone: Start: 09-23-2020 LIGHT GREEN TOP Anujjuvenal Grayson Work Phone: Start: 09-23-2020 PINK TOP Anuj Grayson Work Phone: Start: 09-23-2020 RAINBOW DRAW Anuj Grayson Work Phone: Start: 09-23-2020 Radiologic exam chest single view Linda Lorin Greene Work Phone: Start: 09-23-2020 COVID-19/INFLUENZA A,B MOLECULAR Linda Masonsbach Work Phone: Start: 08-13-2020 COVID-19/INFLUENZA A,B MOLECULAR Jose Juan Rowland Work Phone: Start: 08-13-2020 Standard chest X-ray [employer] Work Phone: Start: 08-13-2020 Bacteria identified in Blood by Culture [employer] Work Phone: Start: 08-13-2020 Complete blood count (hemogram) panel - Blood by Automated count [employer] Work Phone: Start: 08-13-2020 Comprehensive metabolic 2000 panel - Serum or Plasma [employer] Work Phone: Start: 08-13-2020 Lactate [Moles/volume] in Serum or Plasma [employer] Work Phone: Start: 08-13-2020 LAVENDER TOP Jose Juan Sheehant montserrat Work Phone: Start: 08-13-2020 LIGHT BLUE TOP Jose Juan Sheehant montserrat Work Phone: Start: 08-13-2020 LIGHT GREEN TOP Jose Juan Sheehant [employer] Work Phone: Start: 08-13-2020 PINK TOP Jose Juan Sheehant [employer] Work Phone: Start: 08-13-2020 RAINBOW DRAW Jose Juan Sheehant montserrat Work Phone: Start: 03-22-2020 Basic metabolic 2000 panel - Serum or Plasma Khadar Yoo Work Phone: Start: 03-21-2020 COVID-19, MOLECULAR Emilio Maldonado Work Phone: Start: 03-21-2020 Ct abdomen & pelvis w/contrast material Emilio Maldonado Work Phone: Start: 03-21-2020 Radiologic exam chest single view Emilio Maldonado Work Phone: Start: 03-21-2020 Urinalysis Emilio Maldonado Work Phone: Start: 03-21-2020 Bacteria identified in Unspecified specimen by Aerobe culture Emilio Maldonado Work Phone: Start: 03-21-2020 End: 03-21-2020 Bacteria identified in Blood by Culture Emilio Maldonado Work Phone: Start: 03-21-2020 Basic metabolic 1998 panel - Serum or Plasma Emilio Maldonado Work Phone: Start: 03-21-2020 Choriogonadotropin.beta subunit ( test) [Presence] in Serum or Plasma Emilio Maldonado Work Phone: Start: 03-21-2020 Complete blood count with white cell differential, automated Emilio Maldonado Work Phone: Start: 03-21-2020 Complete blood count with white cell differential, manual Emilio Maldonado Work Phone: Start: 03-21-2020 VALLE TOP Narcisa Dumont [facility] Work Phone: Start: 03-21-2020 Lactate [Moles/volume] in Serum or Plasma Emilio Maldonado Work Phone: Start: 03-21-2020 LAVENDER TOP Narcisa Dumont [facility] Work Phone: Start: 03-21-2020 LIGHT BLUE TOP Narcisa Dumont [employer] Work Phone: Start: 03-21-2020 LIGHT GREEN TOP Narcisa Dumont [facility] Work Phone: Start: 03-21-2020 MINT GREEN TOP Narcisa Dumont [facility] Work Phone: Start: 03-21-2020 PINK TOP Narcisa Lockwood Work Phone: Start: 03-21-2020 RAINBOW DRAW Narcisa Lockwood Work Phone: Start: 02-14-2020 Basic metabolic 2000 panel - Serum or Plasma Mikala Arnold Work Phone: Start: 02-14-2020 Complete blood count with white cell differential, automated Mikala Arnold Work Phone: Start: 02-14-2020 Complete blood count with white cell differential, manual Mikala Arnold Work Phone: Start: 02-13-2020 Basic metabolic 2000 panel - Serum or Plasma Mikala Arnold Work Phone: Start: 02-13-2020 Complete blood count with white cell differential, automated Mikala Arnold Work Phone: Start: 02-13-2020 Complete blood count with white cell differential, manual Mikala Arnold Work Phone: Start: 02-13-2020 Lactate [Moles/volume] in Serum or Plasma Mikala Arnold Work Phone: Start: 02-12-2020 Lactate [Moles/volume] in Serum or Plasma Mikala Arnold Work Phone: Start: 02-12-2020 COVID-19, MOLECULAR Precious Marily Annageorge Work Phone: Start: 02-12-2020 12 lead ECG Precious Marily Annageorge Work Phone: Start: 02-12-2020 Radiologic exam chest [...] 01-22-2020 Radiologic exam chest single view Elodia Maganabins Work Phone: Start: 10-24-2019 Basic metabolic 2000 panel - Serum or Plasma Baldemar Villa Work Phone: Start: 10-23-2019 Complete blood count (hemogram) panel - Blood by Automated count Huber Priest Work Phone: Start: 10-23-2019 Comprehensive metabolic 2000 panel - Serum or Plasma Huber Priest Work Phone: Start: 10-22-2019 Methicillin resistant Staphylococcus aureus (MRSA) DNA [Presence] in Unspecified specimen by CAMILO with probe detection Beronica Torres Work Phone: Start: 10-22-2019 Complete blood count (hemogram) panel - Blood by Automated count Beronica Torres Work Phone: Start: 10-22-2019 Basic metabolic 1999 panel - Serum or Plasma Beronica Torres Work Phone: Start: 10-21-2019 Basic metabolic 1997 panel - Serum or Plasma Beronica Torres Work Phone: Start: 10-21-2019 Assay of lactate Christine Shah Work Phone: Start: 10-21-2019 Influenza virus A AND B antigen assay José Meléndez Work Phone: Start: 10-21-2019 Radiologic exam chest single view José Cardona aida [employer] Work Phone: Start: 10-21-2019 Bacteria identified in Unspecified specimen by Aerobe culture Christine Shah Work Phone: Start: 10-21-2019 Urinalysis Christine Shah Work Phone: Start: 10-21-2019 Basic metabolic 1999 panel - Serum or Plasma Christine Shah Work Phone: Start: 10-21-2019 Hepatic function 2000 panel - Serum or Plasma Christine Shah [...] Potassium [Moles/volume] in Serum or Plasma Janna De Guzmanlio Llanes Work Phone: Start: 09-22-2019 Basic metabolic [...] Viera Work Phone: Start: 09-20-2019 Radiography of rcvema-[id number]-brxxsub Fidencio Ye Work Phone: Start: 09-20-2019 Methicillin [...] Phone: Start: 09-20-2019 Glucose [Mass/volume] in Blood [facility] Work Phone: Start: 09-20-2019 Evaluation of arterial blood gas studies [facility] Work Phone: Start: 09-20-2019 End: 09-20-2019 Bacteria identified in Blood by Culture Shannan Viera Work Phone: Start: 09-20-2019 Basic metabolic 2000 panel - Serum or Plasma Shannan Viera Work Phone: Start: 09-20-2019 Complete blood count with white cell differential, automated Shannan Viera Work Phone: Start: 09-20-2019 Complete blood count with white cell differential, manual Shannan Viera Work Phone: Start: 09-20-2019 Magnesium [Mass/volume] in Serum or Plasma Shannan Viera Work Phone: Start: 09-20-2019 Bacteria identified in [...] count with white cell differential, manual Jamir Fuentes Work Phone: Start: 09-19-2019 Lactate [Moles/volume] in Serum or Plasma Jamir Fuentes Work Phone: Start: 09-19-2019 LIGHT GREEN TOP [...] Start: 05-04-2019 Radiologic exam chest single view Elizabethclaudia Newtonis Work Phone: Start: 05-04-2019 PINK TOP Kj José Moncada Work Phone: Start: 05-04-2019 RAINBOW DRAW Kj José Moncada Work Phone: Start: 05-04-2019 PINK TOP Triage Protocol Emergency Start: 05-04-2019 Basic metabolic 2000 panel - Serum or Plasma Marisel Teresaanne Pembroke Work Phone: Start: 05-04-2019 Complete blood count with white cell differential, automated Marisel Mamta Tori Work Phone: Start: 05-04-2019 Complete blood count with white cell differential, manual Marisel Mamta Tori Work Phone: Start: 05-04-2019 VALLE TOP Triage Protocol Emergency Start: 05-04-2019 LIGHT BLUE TOP Triage Protocol Emergency Start: 05-04-2019 LIGHT GREEN TOP Triage Protocol Emergency Start: 05-04-2019 RAINBOW DRAW Triage Protocol Emergency Start: 12-05-2018 Basic metabolic 2000 panel - Serum or Plasma Onelia Tejadack Work Phone: Start: 12-05-2018 Complete blood count with white cell differential, automated Onelia H [employer] Work Phone: Start: 12-05-2018 Complete blood count with white cell differential, manual Onelia H [employer] Work Phone: Start: 12-04-2018 Basic metabolic 2000 panel - Serum or Plasma Onelia H [employer] Work Phone: Start: 12-04-2018 Complete blood count with white cell differential, automated Onelia H [employer] Work Phone: Start: 12-04-2018 Complete blood count with white cell differential, manual Onelia H [employer] Work Phone: Start: 12-03-2018 Basic metabolic 2000 panel - Serum or Plasma Onelia H [employer] Work Phone: Start: 12-03-2018 Complete blood count with white cell differential, automated Onelia H [employer] Work Phone: Start: 12-03-2018 Complete blood count with white cell differential, manual Onelia H [employer] Work Phone: Start: 12-02-2018 Procedure on tissue specimen Rad Noel Work Phone: Start: 12-02-2018 End: 12-02-2018 INCISION AND DRAINAGE LOWER EXTREMITY Rad Luque Work Phone: Start: 12-02-2018 Choriogonadotropin ( test) [Presence] in Urine Katlin Cowan Work Phone: Start: 12-02-2018 Basic metabolic 2000 panel - Serum or Plasma Onelia H [employer] Work Phone: Start: 12-02-2018 Complete blood count with white cell differential, automated Onelia H [employer] Work Phone: Start: 12-02-2018 Complete blood count with white cell differential, manual Onelia Sincere Matt Colon Work Phone: Start: 12-02-2018 Blood type and Indirect antibody screen panel - Blood Peter Trujillo Enrique-Denys Work Phone: Start: 12-02-2018 12 lead ECG Richar Brandt Work Phone: Start: 12-01-2018 Glucose [Mass/volume] in Blood Fidencio Brar Work Phone: Start: 12-01-2018 Basic metabolic 2000 panel - Serum or Plasma Stephen Jarrell Work Phone: Start: 12-01-2018 Complete blood count with white cell differential, automated Stephen Jarrell Work Phone: Start: 12-01-2018 Complete blood count with white cell differential, manual Stephen Jarrell Work Phone: Start: 12-01-2018 Glucose [Mass/volume] in Blood Fidencio Brar Work Phone: Start: 12-01-2018 Blood group typing Fidencio Brar Work Phone: Start: 12-01-2018 Glucose [Mass/volume] in Blood Fidencio Brar Work Phone: Start: 11-30-2018 Glucose [Mass/volume] in Blood Fidencio Brar Work Phone: Start: 11-30-2018 Lamotrigine measurement Stephen Jarrell Work Phone: Start: 11-30-2018 Vancomycin [Mass/volume] in Serum or Plasma --trough Mignon Castillo Work Phone: Start: 11-30-2018 Glucose [Mass/volume] in Blood Fidencio Brar Work Phone: Start: 11-30-2018 End: 12-01-2018 Basic metabolic 2000 panel - Serum or Plasma Richar Brandt Work Phone: Start: 11-30-2018 Complete blood count (hemogram) panel - Blood by Automated count Onelia Colon Work Phone: Start: 11-30-2018 Glucose [Mass/volume] in [...] protein [Mass/volume] in Serum or Plasma Onelia Colon Work Phone: Start: 11-29-2018 Complete blood count (hemogram) panel - Blood by Automated count Richar Brandt Work Phone: Start: 11-29-2018 Erythrocyte sedimentation rate by Westergren method Onelia Colon Work Phone: Start: 11-29-2018 Bacteria identified in [...] count with white cell differential, automated Lizett Bandagabriella Cm Work Phone: Start: 11-28-2018 Complete blood count with white cell differential, manual Lizett Bandagabriella Cm Work Phone: Start: 11-28-2018 Hepatic function 2000 panel - Serum or Plasma Lizett Cm Work Phone: Start: 11-28-2018 Lactate [Moles/volume] in Serum or Plasma Lizett Bandaat Toi Work Phone: Start: 10-07-2018 Urinalysis Linda Greene Work Phone: Start: 10-07-2018 Radiography of tlqgov-aksxkc-cwpqmah Magalie Kilpatrick Work Phone: Start: 10-07-2018 Radiologic exam chest single view Perry Will Work Phone: Start: 10-07-2018 Basic metabolic 2000 panel - Serum or Plasma Linda Lorin Greene Work Phone: Start: 10-07-2018 Complete blood count with white cell differential, automated Lindajohan Greene Work Phone: Start: 10-07-2018 Complete blood count with white cell differential, manual Linda Padgett Jc Work Phone: Start: 10-07-2018 Hepatic function 2000 panel - Serum or Plasma Linda Greene Work Phone: Start: 10-07-2018 Lactate [Moles/volume] in Serum or Plasma Linda Greene Work Phone: Start: 10-07-2018 LIGHT BLUE TOP Magalie Pope Finesse Work Phone: Start: 10-07-2018 LIGHT GREEN TOP Magalie Pope [employer] Work Phone: Start: 10-07-2018 Lipase [Enzymatic activity/volume] in Serum or Plasma Linda Lorin Greene Work Phone: Start: 10-07-2018 PINK TOP Magalie Kilpatrick Work Phone: Start: 10-07-2018 RAINBOW DRAW Magalie Pope Finesse Work Phone: Start: 10-07-2018 CT of head without contrast Linda palm Work Phone: Start: 08-02-2017 End: 08-02-2017 [facility] compl spec&colr d Nikhil Leon [facility] Work Phone: Start: 2014 H/O: gastrostomy S/P percutaneous endoscopic gastrostomy (PEG) tube placement Ruma Godwin CNP Work Phone: H/O: gastrostomy S/P percutaneou s endoscopic gastrostomy (PEG) tube placement (HCC) Yany Wright CNP Work Phone: Plan of Treatment Date Care Activity Detail Author Start: 05-23-2025 End: 05-23-2025 Patient encounter procedure 05/23/2025 12:30 PM EDT Procedure visit [facility] Physician [facility] [address] [place] [phone] Celena Fields MD [address] [place] [address] [facility] Start: 05-15-2025 End: 05-15-2025 Telemedicine consultation with patient 05/15/2025 2:00 PM EDT Telemedicine [facility] Physician [facility], Neuroscience [address] [place] [id number] Yany Wright, ACTIVITIES ATTENDANT [address] [place] [address] [facility] Neuro[facility] Start: 05-10-2025 End: 05-10-2025 Telemedicine consultation with patient [facility] Phys[facility], Neuroscience Start: 05-08-2025 Depression screening using PHQ-9 (Patient Health Questionnaire 9) score Depression Screening/Follow-Up (PHQ-2/9) [facility] Start: 04-30-2025 Influenza vaccination Influenza Vaccine (#1) [facility] Start: 04-06-2025 [facility] Start: 03-29-2025 Source specific culture [facility] Start: 03-29-2025 Anaerobic Culture Anaerobic Culture [facility] Start: 03-29-2025 Microscopic observation [Identifier] in Unspecified specimen by Gram stain [facility] Start: 03-29-2025 Wound Culture Wound Culture [facility] Start: 02-13-2025 End: 02-13-2025 Patient encounter procedure 02/13/2025 2:00 PM EDT Procedure visit [facility] Neuroscience [address] [place] [address] Celena Fields MD [address] [place] [address] Discharge Disposition: Home [facility] Start: 12-14-2024 End: 12-14-2024 Patient encounter procedure 12/14/2024 2:00 PM EDT Office Visit [facility] Physician [facility], Neuroscience [address] [place] [phone] Ruma Godwin, ACTIVITIES ATTENDANT [address] [place] [phone] Discharge Disposition: Home [facility] Start: 11-07-2024 End: 11-07-2024 Patient encounter procedure 11/07/2024 11:00 AM EDT Procedure visit [facility] Physician [facility], Neuroscience [address] [place] [phone] Celena Fields MD [address] [place] [phone] Discharge Disposition: Home [facility] Neuro[facility] Start: 11-06-2024 End: 11-06-2024 Telemedicine consultation with patient 11/06/2024 2:40 PM EDT Telemedicine [facility] Physician [facility] Neuroscience [address] [place] [address] Yany Wright, ACTIVITIES ATTENDANT [address] [place] [address] [facility] Start: 09-19-2024 End: 09-19-2024 Patient encounter procedure 09/19/2024 2:00 PM EST Procedure visit [facility] Physician [facility], Neuroscience [address] [place] [phone] Celena Fields MD [address] [place] [address] Discharge Disposition: Home [facility] Physician [facility], Neuroscience Start: 08-14-2024 End: 08-14-2024 Patient encounter procedure [facility] Neuroscience Start: 06-14-2024 End: 06-14-2024 Patient encounter procedure 06/14/2024 1:00 PM EDT Procedure visit [facility] [address] [place] [phone] Celena Fields MD [address] [place] [address] [facility] Start: 06-13-2024 End: 06-13-2024 Patient encounter procedure 06/13/2024 9:00 AM EDT Procedure visit [facility] Neuroscience [address] [place] [address] Celena Fields MD [address] [place] [address] Discharge Disposition: Home [facility] Physician [facility], Neuroscience Start: 04-30-2024 COVID-19 Vaccine ( season) COVID-19 Vaccine ( season) [facility] Start: 04-30-2024 Influenza vaccination [facility] Start: 04-04-2024 End: 04-04-2024 Patient encounter procedure 04/04/2024 2:00 PM EDT Office Visit [facility] Physician [facility], Neuroscience [address] [place] [address] Yany Wright, ACTIVITIES ATTENDANT [address] [place] [address] [facility] Neuroscience Start: 03-31-2024 End: 03-31-2024 Patient encounter procedure 03/31/2024 9:15 AM EDT Office Visit [facility] Neuroscience [address] [place] [address] Ruma Godwin, ACTIVITIES ATTENDANT [address] [place] [address] Discharge Disposition: Home [facility] Neuroscience Start: 03-22-2024 End: 03-22-2024 Patient encounter procedure 03/22/2024 1:00 PM EDT Office Visit [facility] [address] [place] [address] [address] [place] [address] Stephy Cisse MD [address] [place] [address] [address] [place] [address] [facility] Start: 03-14-2024 End: 03-14-2024 Patient encounter procedure 03/14/2024 8:00 AM EDT Procedure visit [facility] Neuroscience [address] [place] [address] Ruma Godwin, ACTIVITIES ATTENDANT [address] [place] [address] Celena Fields MD [address] [place] [address] Discharge Disposition: Home [facility] Neuro[facility] Start: 02-08-2024 End: 02-08-2024 Patient encounter procedure 02/08/2024 11:30 AM EDT Procedure visit [facility] Neuroscience [address] [place] [address] Celena Fields MD [address] [place] [address] Discharge Disposition: Home [facility] Neuro[facility] Start: 01-18-2024 End: 01-18-2024 Patient encounter procedure 01/18/2024 1:25 PM EDT Office Visit [facility] Physician [facility] Neuroscience [address] [place] [address] Richar Talbert MD [address] [place] [address] [facility] Physician [facility] Neuroscience Start: 01-13-2024 End: 01-13-2024 ambulatory 01/13/2024 3:30 PM EDT Treatment [facility] [address] [place] [phone] Ruma Godwin, ACTIVITIES ATTENDANT [address] [facility] [address] [place] [address] Mignon Jordan OT Discharge Disposition: Home [facility] Start: 01-11-2024 End: 01-11-2024 ambulatory 01/11/2024 2:00 PM EDT Treatment [facility] [address] [place] [phone] Ruma Godwin, ACTIVITIES ATTENDANT [address] [facility] [address] [place] [address] Mignon Jordan OT [facility] Start: 01-07-2024 End: 01-07-2024 ambulatory 01/07/2024 3:30 PM EDT Treatment [facility] [address] [place] [address] Ruma Godwin, ACTIVITIES ATTENDANT [address] [facility] [address] [place] [address] Mignon Jordan OT Discharge Disposition: Home [facility] Start: 12-28-2023 End: 12-28-2023 ambulatory 12/28/2023 12:30 PM EDT Evaluation [facility] [address] [place] [address] Ruma Godwin, ACTIVITIES ATTENDANT [address] [place] [address] Mignon Jordan OT Discharge Disposition: Home [facility] Start: 11-26-2023 End: 11-26-2023 Patient encounter procedure 11/26/2023 3:00 PM EDT Office Visit [facility] [address] [place] [address] [address] [place] [address] Stephy Cisse MD [address] [place] [address] [address] [place] [address] [facility] Start: 09-30-2023 End: 09-30-2023 Patient encounter procedure 09/30/2023 10:30 AM EST Procedure visit [facility] [address] [place] [address] Guerda Ngo MD [address] [place] [address] [facility] Start: 09-16-2023 End: 09-16-2023 Patient encounter procedure 09/16/2023 10:00 AM EST Procedure visit [facility] Neuro[facility] [address] [place] [address] Guerda Ngo MD [address] [place] [address] [facility] Start: 09-13-2023 End: 09-13-2023 Patient encounter procedure 09/13/2023 11:00 AM EST [facility] [address] [place] [address] Yany Wright, ACTIVITIES ATTENDANT [address] [place] [address] [facility] Start: 09-09-2023 End: 09-09-2023 Patient encounter procedure 09/09/2023 10:45 AM EST Office Visit [facility] Neuro[facility] [address] [place] [address] Ruma Godwin, ACTIVITIES ATTENDANT [address] [place] [address] [facility] Start: 08-31-2023 End: 08-31-2023 Patient encounter procedure 08/31/2023 10:20 AM EST Office Visit [facility] [address] [place] [address] Yany Wright, ACTIVITIES ATTENDANT [address] [place] [address] [facility] Start: 07-21-2023 End: 07-21-2023 Patient encounter procedure 07/21/2023 1:00 PM EST [facility] [address] [place] [address] Yany Wright, ACTIVITIES ATTENDANT [address] [place] [address] [facility] Start: 07-17-2023 Depression screening using PHQ-9 (Patient Health Questionnaire 9) score [facility] Start: 06-29-2023 End: 06-29-2023 Patient encounter procedure 06/29/2023 2:40 PM EDT Office Visit [facility] Neuro[facility] [address] [place] [address] Yany Wright, ACTIVITIES ATTENDANT [address] [place] [address] [facility] Start: 05-18-2023 End: 05-18-2023 Patient encounter procedure 05/18/2023 1:30 PM EDT Procedure visit [facility] [address] [place] [address] Celena Fields MD [address] [place] [address] Discharge Disposition: Home [facility] Start: 04-30-2023 COVID-19 Vaccine ( season) COVID-19 Vaccine ( season) [facility] Start: 04-30-2023 Influenza vaccination [facility] Start: 04-21-2023 End: 04-21-2023 Patient encounter procedure 04/21/2023 10:30 AM EDT Office Visit [facility] Neuroscience [address] [place] [address] Celena Fields MD [address] [place] [address] Sunita Mejia MD [address] [place] [address] Discharge Disposition: Home [facility] Start: 02-02-2023 End: 02-02-2023 Patient encounter procedure 02/02/2023 1:30 PM EDT Procedure visit [facility] Neuroscience [address] [place] [address] Celena Fields MD [address] [place] [address] Discharge Disposition: Home [facility] Start: 12-01-2022 End: 12-01-2022 Patient encounter procedure 12/01/2022 1:30 PM EDT Office Visit [facility] , Neuroscience [address] [place] [address] Celena Fields MD [address] [place] [address] [facility] Start: 11-03-2022 End: 11-03-2022 Patient encounter procedure 11/03/2022 Procedure visit Neurology Celena Fields MD [address] [place] [address] [facility] Start: 10-13-2022 End: 10-13-2022 Patient encounter procedure 10/13/2022 Office Visit Neurology Celena Fields MD [address] [place] [address] [facility] Start: 10-05-2022 End: 10-05-2022 Patient encounter procedure 10/05/2022 Office Visit Neurology Donna Levy CNP [address] [place] [address] [facility] Start: 09-22-2022 End: 09-22-2022 Patient encounter procedure 09/22/2022 Office Visit Neurology Augusto Monacda MD [address] [facility] [address] [place] [address] [facility] Start: 09-10-2022 End: 09-10-2022 Patient encounter procedure 09/10/2022 Office Visit Neurology Richar Talbert MD [address] [place] [address] [facility] Start: 08-27-2022 End: 08-27-2022 Follow-up encounter 08/27/2022 Follow-Up Neurosurgery Peter Portillo Ed, MD [address] [facility] [address] [place] [address] [facility] Start: 08-27-2022 End: 08-27-2022 Patient encounter procedure 08/27/2022 Office Visit Neurology Augusto Moncada MD [address] [facility] [address] [place] [address] [facility] Start: 08-03-2022 End: 08-03-2022 Admission to same day surgery center 08/03/2022 Clinical Support Neurosurgery Elodia Riojas, TAMMY [facility] Physician [facility], Neuroscience Start: 07-25-2022 End: 07-25-2022 Patient encounter procedure 07/25/2022 Appointment Home Health Services Kenyetta Domingo RN [facility] Start: 07-24-2022 End: 07-24-2022 Patient encounter procedure 07/24/2022 Appointment Home Health Services Christine Marroquin RN [facility] Start: 07-22-2022 End: 07-22-2022 Patient encounter procedure 07/22/2022 Appointment Home Health Services Christine Marroquin RN [facility] Start: 07-15-2022 End: 07-15-2022 INTRATHECAL PUMP REMOVAL INTRATHECAL PUMP REMOVAL INFECTION OF INTRATHECAL PUMP 07/15/2022 2:[address] [facility] Start: 04-30-2022 Influenza vaccination [facility] Start: 01-30-2022 End: 01-30-2022 Patient encounter procedure 01/30/2022 Office Visit Gastroenterology René Spear MD [address] [place] [address] Gastroenterology and Hepatology [facility] Start: 12-22-2021 End: 12-22-2021 Esophagogastroduodenoscopy transoral diagnostic EGD DIAGNOSTIC PEG tube malfunction 12/22/2021 8:36 AM EDT [facility] Start: 12-04-2021 End: 12-04-2021 Patient encounter procedure 12/04/2021 Office Visit Neurology Donna Brush, ACTIVITIES ATTENDANT [address] [facility] [address] [place] [address] [facility] Start: 08-21-2021 End: 08-21-2021 Patient encounter procedure 08/21/2021 Office Visit Neurology Donna Brush, ACTIVITIES ATTENDANT [address] [facility] [address] [place] [address] [facility] Start: 07-25-2021 Subsequent hospital visit by physician 07/25/2021 Hospital Encounter America, Wilder Cm, DO [address] [place] [address] [facility] Start: 06-20-2021 End: 06-20-2021 ambulatory 06/20/2021 Evaluation Rehabilitation Cynthia Chan, ACTIVITIES ATTENDANT [address] [place] [address] Sisi Wills, PT [facility] Start: 06-18-2021 End: 06-18-2021 Patient encounter procedure [facility], Neuroscience Start: 05-30-2021 Subsequent hospital visit by physician 05/30/2021 Hospital Encounter Wilder Cross DO [address] [address] [facility] Start: 05-01-2021 End: 05-01-2021 Patient encounter procedure [facility], Neuroscience Start: 04-30-2021 Influenza vaccination [facility] Start: 04-30-2021 Subsequent hospital visit by physician [facility] Start: 02-10-2021 End: 02-10-2021 Patient encounter procedure 02/10/2021 Office Visit Wound Care Werner Kaplan Jr., MD [address] [address] [phone] [facility] Start: 02-04-2021 End: 02-04-2021 Patient encounter procedure 02/04/2021 Office Visit General Surgery Werner Kaplan Jr., MD [address] [facility] [address] [place] [address] [phone] Wilder Cross DO [address] [address] [phone] [facility] Start: 01-13-2021 End: 01-13-2021 Patient encounter procedure 01/13/2021 Office Visit Wound Care Werner Kaplan Jr., MD [address] [address] [phone] [facility] Start: 01-09-2021 End: 01-09-2021 Office Visit 01/09/2021 Office Visit Neurology Ruma Godwin, ACTIVITIES ATTENDANT [address] [facility] [address] [place] [address] [phone] [facility] Start: 12-17-2020 End: 12-17-2020 Office Visit 12/17/2020 Office Visit Neurology Richar Talbert MD [address] [place] [address] [phone] [facility] Start: 12-03-2020 End: 12-03-2020 Office Visit 12/03/2020 Office Visit Neurology Richar Talbert MD [address] [place] [address] [phone] [facility] Start: 09-23-2020 End: 09-23-2020 Office Visit 09/23/2020 Office Visit Neurology Yany Wright, ROCKY [address] [place] [address] [phone] [facility] Start: 09-19-2020 End: 09-19-2020 Office Visit 09/19/2020 Office Visit Neurology Ruma Godwin, ACTIVITIES ATTENDANT [address] [place] [address] [phone] [facility] Physician [facility], Neuroscience Start: 07-03-2020 End: 07-03-2020 Office Visit 07/03/2020 Office Visit Pulmonology Stephy Cisse MD [address] [facility] [place] [address] [phone] [facility] Start: 05-30-2020 End: 05-30-2020 Office Visit 05/30/2020 Office Visit Neurology Ruma Godwin, ACTIVITIES ATTENDANT [address] [place] [address] [phone] [facility] Physician [facility], Neuroscience Start: 04-30-2020 Influenza vaccination given Sequential Influenza Vaccine (#1) [facility] Start: 2020 Screening for malignant neoplasm of cervix [facility] Start: 02-08-2020 End: 02-08-2020 Office Visit 02/08/2020 Office Visit Neurology Ruma Godwin, ACTIVITIES ATTENDANT [address] [facility] [address] [place] [address] [phone] [facility] Start: 01-15-2020 End: 01-15-2020 Office Visit 01/15/2020 Office Visit Pulmonology Stephy Cisse MD [address] [facility] [place] [address] [phone] [facility] Start: 10-19-2019 End: 10-19-2019 Office Visit 10/19/2019 Office Visit Neurology Ruma Godwin, ACTIVITIES ATTENDANT [address] [facility] [address] [place] [address] [phone] [facility] Start: 06-29-2019 End: 06-29-2019 Procedure visit [facility] Start: 05-24-2019 End: 05-24-2019 Appointment [facility] Nuclear [facility] Start: 05-22-2019 End: 05-22-2019 Appointment 05/22/2019 Appointment Radiology Wilder Noland MD [address] [address] [phone] [facility] Nuclear Medicine Start: 05-22-2019 End: 05-22-2019 Appointment 05/22/2019 Appointment Radiology Wilder Noland MD [address] [address] [phone] [facility] Nuclear Medicine Start: 05-09-2019 End: 05-09-2019 Office Visit 05/09/2019 Office Visit Plastic Surgery Wilder Noland MD [address] [address] [phone] [facility] Start: 04-30-2019 Influenza vaccination given [facility] Start: 04-03-2019 End: 02-02-2020 Hepatic function 2000 panel - Serum or Plasma Hepatic Function Panel Lab Routine Intractable symptomatic generalized epilepsy (HCC) Medication management Expected: 04/03/2019, Expires: 02/02/2020 [facility] Comment on above: Expected: 04/03/2019, Expires: 0 Start: 03-09-2019 End: 03-09-2019 Office Visit 03/09/2019 Office Visit Neurology Ruma Godwin, ACTIVITIES ATTENDANT [address] [place] [address] [phone] [facility] Start: 03-03-2019 End: 02-02-2020 Hepatic function 2000 panel - Serum or Plasma Hepatic Function Panel Lab Routine Intractable symptomatic generalized epilepsy (HCC) Medication management Expected: 03/03/2019, Expires: 02/02/2020 [facility] Comment on above: Expected: 03/03/2019, Expires: 0 Start: 02-01-2019 End: 02-01-2019 Office Visit 02/01/2019 Office Visit Neurology Yany Wright, ACTIVITIES ATTENDANT [address] [place] [address] [phone] [facility] Start: 01-12-2019 End: 01-12-2019 Ambulatory 01/12/2019 Office Visit Pulmonology Stephy Cisse MD [address] [facility] [place] [address] [phone] [facility] Start: 11-21-2018 End: 11-21-2018 Office Visit 11/21/2018 Office Visit Neurology Ruma Godwin, ACTIVITIES ATTENDANT [address] [place] [address] [phone] [facility] Start: 08-04-2018 End: 08-04-2018 Ambulatory 08/04/2018 Office Visit Neurology Ruma Godwin, ACTIVITIES ATTENDANT [address] [place] [address] [phone] [facility] Start: 08-03-2018 End: 08-03-2018 Ambulatory 08/03/2018 Office Visit Neurology Yany Wright, ACTIVITIES ATTENDANT [address] [place] [address] [phone] [facility] Start: 05-09-2018 End: 05-09-2018 Ambulatory 05/09/2018 Office Visit Neurology Ruma Godwin, ACTIVITIES ATTENDANT [address] [place] [address] [phone] [facility] Start: 04-30-2018 Influenza vaccination SEQUENTIAL INFLUENZA VACCINE (#1) [facility] Start: 04-30-2018 Influenza vaccination given SEQUENTIAL INFLUENZA VACCINE (#1) [facility] Start: 04-21-2018 End: 04-21-2018 Ambulatory 04/21/2018 Office Visit Neurology Ruma Godwin, ACTIVITIES ATTENDANT [address] [place] [address] [phone] [facility] Start: 01-19-2018 End: 01-19-2018 Ambulatory 01/19/2018 Office Visit Neurology Adriana Yany Huertas, ACTIVITIES ATTENDANT [address] [place] [address] [phone] [facility] Start: 01-12-2018 End: 01-12-2018 Ambulatory 01/12/2018 Office Visit Pulmonology Stephy Cisse MD [address] [facility] [place] [address] [phone] [facility] Start: 01-07-2018 Ambulatory 01/07/2018 Office Visit Neurology Ruma Godwin, ACTIVITIES ATTENDANT [address] [place] [address] [phone] [facility] Start: 11-15-2017 Ambulatory 11/15/2017 Office Visit Pulmonology Amalia Terry MD [address] [facility] [place] [address] [phone] [facility] Start: 09-17-2017 Ambulatory 09/17/2017 Office Visit Neurology Kdashlynnataly Ruma ChioYe, ACTIVITIES ATTENDANT [address] [place] [address] [phone] [facility] Start: 08-02-2017 Ambulatory 08/02/2017 Appointment Cardiology BanksKiyaRoscoeNikhil joiner DO [address] [place] [address] [phone] [facility] Cardiac Non-Invasive Start: 07-26-2017 Ambulatory 07/26/2017 Office Visit Neurology Yany Wright, ACTIVITIES ATTENDANT [address] [place] [address] [phone] [facility] Start: 07-26-2017 Ambulatory 07/26/2017 Office Visit Cardiology Stephy Cisse MD [address] [facility] [place] [address] [phone] [facility] [address] [place] [address] [phone] [facility] Start: 07-15-2017 Ambulatory 07/15/2017 Office Visit Pulmonology Stephy Cisse MD [address] [facility] [place] [address] [phone] [facility] Start: 06-16-2017 Ambulatory 06/16/2017 Office Visit Neurology Yany Wright, ACTIVITIES ATTENDANT [address] [place] [address] [phone] [facility] Start: 06-01-2017 Ambulatory 06/01/2017 Office Visit Neurology Kdashlynnataly Ruma M., ACTIVITIES ATTENDANT [address] [facility] [address] [place] [address] [phone] [facility] Start: 04-30-2017 Influenza vaccination SEQUENTIAL INFLUENZA VACCINE (#1) [facility] Work Phone: Start: 04-30-2017 SEQUENTIAL INFLUENZA VACCINE (#1) SEQUENTIAL INFLUENZA VACCINE (#1) [facility] Work Phone: Start: 04-26-2017 Ambulatory 04/26/2017 Office Visit Neurology Yany Wright, ACTIVITIES ATTENDANT [address] [place] [address] [phone] [facility] Start: 2011 Screening for malignant neoplasm of cervix [facility] Start: 08-10-2009 Pneumococcal Vaccine: Ped or At-Risk (2 - PCV) Pneumococcal Vaccine: Ped or At-Risk (2 - PCV) [facility] Start: 2009 Third diphtheria, tetanus and acellular pertussis (DTaP) vaccination TDAP (ADULT) [facility] Start: 2008 Hepatitis C antibody, confirmatory test Hepatitis C Screening [facility] Start: 2008 Hepatitis C screening Hepatitis C Screening [facility] Start: 2008 Tetanus vaccination TETANUS [facility] Start: 2006 COVID-19 Vaccine (1 of 2) COVID-19 Vaccine (1 of 2) [facility] Start: 2006 COVID-19 Vaccine (1) COVID-19 Vaccine (1) [facility] Start: 2005 HIV screening [facility] Start: 2002 Adolescent depression screening assessment Depression Screening (PHQ9) [facility] Start: 2002 COVID-19 Vaccine (1) COVID-19 Vaccine (1) [facility] Start: 2002 Depression screening using PHQ-9 (Patient Health Questionnaire 9) score [facility] Start: 2000 Urine screening for protein Urine Microalbumin [facility] Start: 1995 COVID-19 Vaccine (1) COVID-19 Vaccine (1) [facility] Start: 1993 History and physical examination, annual for health maintenance Wellness Visit [facility] Start: 1990 COVID-19 Vaccine (#1) COVID-19 Vaccine (#1) [facility] Start: 1990 Cytopathology procedure, preparation of smear, genital source PAP SMEAR [facility] Work Phone: Start: 1990 Depression screening using PHQ-9 (Patient Health Questionnaire 9) score DEPRESSION SCREENING (PHQ9) [facility] Start: 1990 Hepatitis C antibody, confirmatory test HEPATITIS C VIRUS SCREENING [facility] Start: 1990 Microscopic observation Cyto stain Nom (Cvx) PAP SMEAR [facility] Work Phone: Start: 1990 Screening for malignant neoplasm of cervix PAP SMEAR [facility] Start: 1990 Screening for substance abuse SUBSTANCE ABUSE SCREENING (AUDIT-C) [facility] Start: 1990 TETANUS EVERY 10 YR TETANUS EVERY 10 YR [facility] Work Phone: Start: 1990 Tetanus vaccination [facility] End: 01-20-2022 Albumin [Mass/volume] in Serum or Plasma Albumin Lab Routine Pressure injury of right ischium, stage 3 (HCC) Other cerebral palsy (HCC) 1 Occurrences starting 01/20/2021 until 01/20/2022 [facility] Comment on above: 1 Occurrences starting 01/20/2021 until 01/20/2022 Bacteria identified Aer cx Nom (Bone) Bone Aerobic Culture Routine 12/02/2018 11:44 AM EDT [facility] End: 02-12-2020 Bacteria identified Aer cx Nom (Unsp spec) Urine Aerobic Culture Microbiology Routine Once for 1 Occurrences starting 02/12/2020 until 02/12/2020, 1 completed [facility] Comment on above: Once for 1 Occurrences starting 02/12/20 20 until 02/12/2020, 1 completed Bacteria identified Aer cx Nom (Unsp spec) Urine Aerobic Culture Microbiology Routine 02/13/2020 3:44 AM EDT [facility] Bacteria identified Anaer cx Nom (Unsp spec) Bone Anaerobic Culture Routine 12/02/2018 11:44 AM EDT [facility] Bacteria identified Cx Nom (Bld) [facility] Bacteria identified in Unspecified specimen by Anaerobe culture [facility] COLOSTOMY LAPAROSCOPIC COLOSTOMY LAPAROSCOPIC Pressure injury of right ischium, stage 3 (HCC) [facility] End: 02-02-2020 Complete blood count with white cell differential, manual CBC and Differential Lab Routine Intractable symptomatic generalized epilepsy (HCC) Medication management 1 Occurrences starting 02/01/2019 until 02/02/2020 [facility] Comment on above: 1 Occurrences starting 02/01/2019 until 02/02/2020 End: 08-14-2025 Complete blood count with white cell differential, manual CBC and Differential Lab Routine Intractable symptomatic generalized epilepsy (HCC) 1 Occurrences starting 08/14/2024 until 08/14/2025 [facility] Comment on above: 1 Occurrences starting 08/14/2024 until 08/14/2025 End: 02-02-2020 Comprehensive metabolic 2000 panel Comprehensive Metabolic Panel Lab Routine Intractable symptomatic generalized epilepsy (HCC) Medication management 1 Occurrences starting 02/01/2019 until 02/02/2020 [facility] Comment on above: 1 Occurrences starting 02/01/2019 until 02/02/2020 End: 08-15-2025 Comprehensive metabolic 2000 panel - Serum or Plasma Comprehensive Metabolic Panel Lab Routine Intractable symptomatic generalized epilepsy (HCC) 1 Occurrences starting 08/14/2024 until 08/15/2025 [facility] Comment on above: 1 Occurrences starting 08/14/2024 until 08/15/2025 End: 07-27-2018 Comprehensive metabolic panel [AGGREGATE] Comprehensive Metabolic Panel Routine Tachycardia Generalized edema 1 Occurrences starting 07/26/2017 until 07/27/2018 [facility] Work Phone: Comprehensive metabo lic panel [AGGREGATE] Comprehensive Metabolic Panel Routine Tachycardia Generalized edema 07/26/2017 11:58 AM EST [facility] Work Phone: CSF Fungus Culture CSF Fungus Cu lture Microbiology Routine 07/15/2022 4:26 PM EST [facility] End: 09-25-2018 Echocardiogram complete Echocardiogram complete Routine Tachycardia Generalized edema 1 Occurrences starting 07/26/2017 until 09/25/2018 [facility] Work Phone: End: 07-26-2017 Holter monitor - 24 hour Holter monitor - 24 hour Routine Tachycardia Once for 1 Occurrences starting 07/26/2017 until 07/26/2017 [facility] Work Phone: End: 09-25-2018 Holter monitor - 24 hour Holter monitor - 24 hour Routine Tachycardia 1 Occurrences starting 07/26/2017 until 09/25/2018 [facility] Work Phone: End: 02-02-2020 Lamotrigine measurement Lamotrigine Level Lab Routine Intractable symptomatic generalized epilepsy (HCC) Medication management 1 Occurrences starting 02/01/2019 until 02/02/2020 [facility] Comment on above: 1 Occurrences starting 02/01/2019 until 02/02/2020 End: 08-14-2025 Lamotrigine measurement Lamotrigine Level Lab Routine Intractable symptomatic generalized epilepsy (HCC) 1 Occurrences starting 08/14/2024 until 08/14/2025 [facility] Work Phone: Comment on above: 1 Occurrences starting 08/14/2024 until 08/14/2025 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 fluid by Organism specific culture CSF AFB Culture Microbiology Routine 07/15/2022 4:26 PM EST [facility] Work Phone: End: 05-08-2020 NM Bone Limited Study NM Bone Limited Study Imaging Routine Wound healing, delayed 1 Occurrences starting 05/09/2019 until 05/08/2020 [facility] Comment on above: 1 Occurrences starting 05/09/2019 until 05/08/2020 End: 05-08-2020 NM White Blood Cell SPECT NM White Blood Cell SPECT Imaging Routine Wound healing, delayed 1 Occurrences starting 05/09/2019 until 05/08/2020 [facility] Comment on above: 1 Occurrences starting 05/09/2019 until 05/08/2020 Patient Education ED Wound Care [facility] Work Phone: End: 07-26-2018 Prealbumin Prealbumin Routine Tachycardia Generalized edema 1 Occurrences starting 07/26/2017 until 07/26/2018 [facility] Work Phone: Prealbumin Prealbumin Routi ne Tachycardia Generalized edema 07/26/2017 11:58 AM EST [facility] Work Phone: End: 01-20-2022 Prealbumin [Mass/volume] in Serum or Plasma Prealbumin Lab Routine Pressure injury of right ischium, stage 3 (HCC) Other cerebral palsy (HCC) 1 Occurrences starting 01/20/2021 until 01/20/2022 [facility] Comment on above: 1 Occurrences starting 01/20/2021 until 01/20/2022 End: 02-02-2020 Serum levetiracetam measurement Levetiracetam Level Lab Routine Intractable symptomatic generalized epilepsy (HCC) Medication management 1 Occurrences starting 02/01/2019 until 02/02/2020 [facility] Comment on above: 1 Occurrences starting 02/01/2019 until 02/02/2020 End: 08-14-2025 Serum levetiracetam measurement Levetiracetam Level Lab Routine Intractable symptomatic generalized epilepsy (HCC) 1 Occurrences starting 08/14/2024 until 08/14/2025 [facility] Comment on above: 1 Occurrences starting 08/14/2024 until 08/14/2025 Tissue AFB Culture Tissue AFB Cu lture Microbiology Routine 07/15/2022 4:41 PM EST [facility] Tissue Fungus Culture Tissue Fun sotero Culture Microbiology Routine 07/15/2022 4:41 PM EST [facility] End: 07-26-2018 TSH with Reflex Free T4 TSH with Reflex Free T4 Routine Tachycardia Generalized edema 1 Occurrences starting 07/26/2017 until 07/26/2018 [facility] Work Phone: TSH with Reflex Free T4 TSH with Reflex Free T4 Routine Tachycardia Generalized edema 07/26/2017 11:58 AM EST [facility] Work Phone: Wound AFB Culture Wound AFB Cult ure Microbiology Routine 07/15/2022 4:40 PM [facility] Wound Fungus Culture Wound Fungu s Culture Microbiology Routine 07/15/2022 4:40 PM [facility] Wound microscopy, cu lture and sensitivities [facility] Wound ostomy eval and treat Woun d ostomy eval and treat Wound Ostomy Routine Pressure injury of right ischium, stage 3 (HCC) Ordered: 02/06/2021 [facility] Comment on above: Ordered: 02/06/2021 Wound ostomy eval and treat Woun d ostomy eval and treat Wound Ostomy Routine Pressure injury of right ischium, stage 3 (HCC) Ordered: 02/06/2021 [facility] Work Phone: Comment on above: Ordered: 02/06/2021 XR Chest 1 View XR Chest 1 View Imaging VANE 05/04/2019 4:54 PM EDT [facility] End: 05-09-2020 XR Hips Bilateral With Pelvis 5+ Views XR Hips Bilateral With Pelvis 5+ Views Imaging Routine Wound healing, delayed 1 Occurrences starting 05/09/2019 until 05/09/2020 [facility] Comment on above: 1 Occurrences starting 05/09/2019 until 05/09/2020 Immunizations Immunization Date Immunization Notes Care Provider Juanito juarez 07-19-2024 influenza virus vacc ine, unspecified formulation Yanyshilpa Wright CNP Work Phone: [facility] 09-27-2019 influenza, injectabl e, quadrivalent, preservative free Barron Moncada [facility] 09-27-2019 influenza virus vacc ine, unspecified formulation Alex Velasco MD Work Phone: [facility] 06-02-2017 influenza virus vacc ine, unspecified formulation Stephy Cisse [facility] Work Phone: 11-24-2016 influenza, injectabl e, quadrivalent, preservative free; Translations: [INFLUENZA IIV4 3YO OR > FLUARIX/FLUZONE/AFLURIA 48739] Stephy Cisse [facility] 08-01-2016 influenza, injectabl e, quadrivalent, preservative free; Translations: [INFLUENZA IIV4 3YO OR > FLUARIX/FLUZONE/AFLURIA 39672] Stephy Cisse [facility] 08-10-2008 pneumococcal polysaccharide vaccine, 23 valent Stephy Cisse [facility] Work Phone: 06-24-2008 influenza virus vacc ine, unspecified formulation Stephy Cisse [facility] 05-31-2004 influenza virus vacc ine, whole virus Yany Wright [facility] 07-02-2003 influenza, seasonal, injectable Yany Wright [facility] 07-02-2003 poliovirus vaccine, inactivated Yayn [facility] 03-31-2003 measles, mumps and rubella virus [facility] influenza, seasonal, injectable Yany Wright [facility] 11-24-2000 hepatitis B vaccine, pediatric or pediatric/adolescent dosage Yany Wright [facility] 11-24-2000 measles, mumps and rubella virus vaccine Yany Wright [facility] 09-08-2000 hepatitis B vaccine, pediatric or pediatric/adolescent dosage Yany Wright [facility] 04-21-1999 varicella virus vaccine Yany Wright [facility] 09-22-1995 diphtheria, tetanus toxoids and acellular pertussis vaccine, unspecified formulation [facility] 01-25-1992 diphtheria, tetanus toxoids and acellular pertussis vaccine, unspecified formulation [facility] 01-25-1992 haemophilus influenz ae type b vaccine, conjugate unspecified formulation [facility] 01-25-1992 measles, mumps and rubella virus vaccine [facility] 01-25-1992 poliovirus vaccine, unspecified formulation [facility] 02-16-1991 diphtheria, tetanus toxoids and acellular pertussis vaccine, unspecified formulation [facility] 02-16-1991 haemophilus influenz ae type b vaccine, conjugate unspecified formulation [facility] 1990 diphtheria, tetanus toxoids and acellular pertussis vaccine, unspecified formulation [facility] 1990 haemophilus influenz ae type b vaccine, conjugate unspecified formulation [facility] 1990 poliovirus vaccine, unspecified formulation [facility] 1990 diphtheria, tetanus toxoids and acellular pertussis vaccine, unspecified formulation [facility] 1990 haemophilus influenz ae type b vaccine, conjugate unspecified formulation [facility] 1990 poliovirus vaccine, unspecified formulation [facility] Payers Date Payer Category Payer Self-pay 2015 Medicaid [facility] xxxxxxxxxxxx 2015-Present [id number] 2015 Medicaid [id number] .[id number] 2015 Medicaid [id number]. 1.13.385.2.7.3 .[id number] 2014 Medicaid [id number] 2.16.840.1.697632.3.249.13 1990 Unknown [id number] 2.16.840.1.416603.3.579.2.902 1990 Unknown [id number] 2.16.840.1.431616.3.579.2.902 1990 Unknown [id number] 2.16.840.1.814327.3.579.2.594 1990 Unknown [id number] 2.16.840.1.718381.3.579.2.594 1990 Unknown [id number] 2.16.840.1.567130.3.579.2.594 1990 Unknown [id number] 2.16.840.1.533454.3.579.2.594 1990 Unknown [id number] 2.16.840.1.716229.3.579.2.594 1990 Unknown [id number] 2.16.840.1.340328.3.579.2.903 1990 Unknown [id number] 2.16.840.1.270133.3.579.2.903 1990 Unknown [id number] 2.16.840.1.071837.3.579.2.903 1990 Unknown [id number] 2.16.840.1.394757.3.579.2.900 1990 Unknown [id number] 2.16.840.1.774681.3.579.2.900 1990 Unknown [id number] 2.16.840.1.611419.3.579.2.900 1990 Unknown [id number] 2.16.840.1.932173.3.579.2.900 1990 Unknown [id number] 2.16.840.1.996280.3.579.2.900 1990 Unknown [id number] 2.16.840.1.468979.3.579.2.900 1990 Unknown [id number] 2.16.840.1.097445.3.579.2.419 1990 Unknown [id number] 2.16.840.1.591029.3.579.2.419 1990 Unknown [id number] 2.16.840.1.622450.3.579.2.419 1990 Unknown [id number] 2.16.840.1.459477.3.579.2.419 1990 Unknown [id number] 2.16.840.1.885376.3.579.2.419 1990 Unknown [id number] 2.16.840.1.318467.3.579.2.419 1990 Unknown [id number] 2.16.840.1.780979.3.579.2.419 1990 Unknown [id number] 2.16.840.1.497004.3.579.2.419 1990 Unknown [id number] 2.16.840.1.055311.3.579.2.419 1990 Unknown [id number] 2.16.840.1.801710.3.579.2.903 1990 Unknown [id number] 2.16.840.1.611981.3.579.2.903 1990 Unknown [id number] 2.16.840.1.740996.3.579.2.903 Unknown [id number] 2.16.840.1.661983.3.579.2.462 Unknown [id number] 2.16.840.1.492372.3.579.2.462 Unknown [id number] 2.16.840.1.350933.3.579.2.462 Unknown [id number] 2.16.840.1.507929.3.579.2.462 Unknown [id number] 2.16.840.1.346480.3.579.2.462 Unknown [id number] 2.16.840.1.308831.3.579.2.462 Unknown [id number] 2.16.840.1.197475.3.579.2.462 Unknown [id number] 2.16.840.1.705032.3.579.2.462 Unknown [id number] 2.16.840.1.513002.3.579.2.462 Unknown [id number] 2.16.840.1.756189.3.579.2.462 Unknown [id number] 2.16.840.1.114645.3.579.2.462 Unknown [id number] 2.16.840.1.317084.3.579.2.462 Unknown [id number] 2.16.840.1.690063.3.579.2.462 Unknown [id number] 2.16.840.1.598741.3.579.2.462 Unknown [id number] 2.16.840.1.819533.3.579.2.462 Unknown [id number] 2.16.840.1.370077.3.579.2.462 Unknown [id number] 2.16.840.1.305615.3.579.2.462 Unknown [id number] 2.16.840.1.842306.3.579.2.462 Social History Date Type Detail Facility Start: 01-12-2018 End: 04-06-2025 Tobacco smoking status VTIS Never smoker [facility] Start: 1990 Sex Assigned At Not on file [facility] Work Phone: Start: 05-09-2019 End: 12-14-2024 Alcohol intake Current non-drinker of alcohol (finding) [facility] Start: 09-17-2021 End: 12-08-2022 Exposure to SARS-CoV-2 (event) Not sure [facility] Start: 05-29-2020 End: 12-01-2022 Tobacco use and exposure Never used [facility] Exposure to SARS-CoV -2 (event) Yes [facility] Start: 11-17-2021 End: 12-22-2021 Alcohol intake Lifetime non-drinker (finding) [facility] Start: 12-23-2020 History SDOH Alcohol Frequency 1 [facility] Start: 07-16-2022 End: 04-21-2024 History of Social function [facility] Start: 07-16-2022 End: 04-21-2024 Tobacco use panel [facility] Adult Depression Screening Assessment 0 [facility] Start: 05-29-2018 Gender identity Identifies as female gender (finding) [facility] Start: 05-29-2018 Sexual orientation Heterosexual (finding) [facility] Work Phone: Start: 1990 Sex Assigned At Female [facility] Medical Equipment Procedure Code Equipment Code Equipment Origin al Text Equipment Identifier Dates Pump 40ml Pain Synchromed Ii - [id number] Start: 07-27-2016 Kit 8ml Matrix Hemostatic W/Thrombin Surgiflo - [id number] Start: 07-27-2016 Pump 40ml Pain Synchromed Ii - [id number] Start: 07-27-2016 Kit 8ml Matrix Hemostatic W/Thrombin Surgiflo - [id number] Start: 07-27-2016 Pump 40ml Pain Synchromed Ii - [id number] Start: 07-27-2016 Kit 8ml Matrix Hemostatic W/Thrombin Surgiflo - [id number] Start: 07-27-2016 Pump 40ml Pain Synchromed Ii - [id number] Start: 07-27-2016 Kit 8ml Matrix Hemostatic W/Thrombin Surgiflo - [id number] Start: 07-27-2016 Pump 40ml Pain Synchromed Ii - [id number] Start: 07-27-2016 Kit 8ml Matrix Hemostatic W/Thrombin Surgiflo - [id number] Start: 07-27-2016 Pump 40ml Pain Synchromed Ii - [id number] Start: 07-27-2016 Kit 8ml Matrix Hemostatic W/Thrombin Surgiflo - [id number] Start: 07-27-2016 Pump 40ml Pain Synchromed Ii - [id number] Start: 07-27-2016 Kit 8ml Matrix Hemostatic W/Thrombin Surgiflo - [id number] Start: 07-27-2016 Pump 40ml Pain Synchromed Ii - [id number] Start: 07-27-2016 Kit 8ml Matrix Hemostatic W/Thrombin Surgiflo - [id number] Start: 07-27-2016 Pump 40ml Pain Synchromed Ii - [id number] Start: 07-27-2016 Kit 8ml Matrix Hemostatic W/Thrombin Surgiflo - [id number] Start: 07-27-2016 Pump 40ml Pain Synchromed Ii - [id number] Start: 07-27-2016 Kit 8ml Matrix Hemostatic W/Thrombin Surgiflo - [id number] Start: 07-27-2016 Pump 40ml Pain Synchromed Ii - [id number] Start: 07-27-2016 Kit 8ml Matrix Hemostatic W/Thrombin Surgiflo - [id number] Start: 07-27-2016 Pump 40ml Pain Synchromed Ii - [id number] Start: 07-27-2016 Kit 8ml Matrix Hemostatic W/Thrombin Surgiflo - [id number] Start: 07-27-2016 Pump 40ml Pain Synchromed Ii - [id number] Start: 07-27-2016 Kit 8ml Matrix Hemostatic W/Thrombin Surgiflo - [id number] Start: 07-27-2016 Pump 40ml Pain Synchromed Ii - [id number] Start: 07-27-2016 Kit 8ml Matrix Hemostatic W/Thrombin Surgiflo - [id number] Start: 07-27-2016 Pump 40ml Pain Synchromed Ii - [id number] Start: 07-27-2016 Kit 8ml Matrix Hemostatic W/Thrombin Surgiflo - [id number] Start: 07-27-2016 Pump 40ml Pain Synchromed Ii - [id number] Start: 07-27-2016 Kit 8ml Matrix Hemostatic W/Thrombin Surgiflo - [id number] Start: 07-27-2016 Pump 40ml Pain Synchromed Ii - [id number] Start: 07-27-2016 Kit 8ml Matrix Hemostatic W/Thrombin Surgiflo - [id number] Start: 07-27-2016 Pump 40ml Pain Synchromed Ii - [id number] Start: 07-27-2016 Kit 8ml Matrix Hemostatic W/Thrombin Surgiflo - [id number] Start: 07-27-2016 Pump 40ml Pain Synchromed Ii - [id number] Start: 07-27-2016 Kit 8ml Matrix Hemostatic W/Thrombin Surgiflo - [id number] Start: 07-27-2016 Pump 40ml Pain Synchromed Ii - [id number] Start: 07-27-2016 Kit 8ml Matrix Hemostatic W/Thrombin Surgiflo - [id number] Start: 07-27-2016 [place] 07/05 Ots [id number], [id number]_imp FDA Start: 11-17-2021 Comment on above: Description: Closure of old PEG site Pump 40ml Pain Synchromed Ii - [id number] Start: 07-15-2022 Comment on above: Description: LEFT LO WER QUADRANT Intrathecal Catheter Pump Segment Revision Kit [id number] Start: 07-15-2022 Pump 40ml Pain Synchromed Ii - [id number]_exp Start: 07-15-2022 Kit 12fr 15cm Ca th Dialysis Str 3-Lumen Pi Temp Ir Only - [id number] Start: 05-01-2024 Tube Sz6 Trach Cuffed Fen Disp - Sn/A [id number])[id number](21)N/A, [id number]_[facility] FDA Start: 05-04-2024 Mental Status Date Assessment Result Facility 05-01-2025 Cognitive function Voice/Name [facility] Work Phone: Clinical Notes 01-09-2021 to 04-20-2025 Note Date & Type Note Facility 04-20-2025 Progress note Note Date/Time April 20, 2025 8:06am [facility] [address] [place] [address] Progress Note - Wound Care 04/19/25 1710 MR#: [id number] Acct: [id number] Name: CLAUDINE JOSEPH Rep #:[id number] : 1990 35 From: Onelia QUINONES PCP: [...] saw Jaimee to establish care at the [facility] last week; however, due to scheduling [...] Method Room Air Charges/Coding Procedures Integumentary 111xxx-113xx: 42446 Linda musc/fascia 20 sq cm/< Physical Exam [...] Start: 03/30/25 13:28 Freq: Status: Active Protocol: CAROL.TERVT Activity Type Activity Date Activity User E-sign Co-sign Detail Recorded Client Recorded Date Recorded By Document 04/05/25 13:24 DL [id number] 04/05/25 13:46 DL Document 04/12/25 13:50 KW [id number] 04/12/25 13:58 KW Document 04/19/25 14:41 KW [id number] 04/19/25 14:44 KW 04/05/25 04/12/25 04/19/25 13:24 13:50 14:41 WC - Today's Visit Information Type of service Follow-up Visit Follow-up Visit Follow-up Visit (Physician/ACTIVITIES ATTENDANT (Physician/ACTIVITIES ATTENDANT (Physician/ACTIVITIES ATTENDANT ) ) ) Arrival Mode Wheelchair Wheelchair [...] Date Recorded By Document 04/05/25 13:24 DL [id number] 04/05/25 13:46 DL Document 04/12/25 13:50 KW [id number] 04/12/25 13:58 KW Document 04/19/25 14:41 KW [id number] 04/19/25 14:44 KW 04/05/25 04/12/25 04/19/25 13:24 [...] Amt Large (67-100%) Large (67-100%) -Granulation Quality Toone Red -Necrosis Amt Small (1-33%) Medium (34-66%) [...] Recorded Date Recorded By Document 04/05/25 13:52 [id number] 04/05/25 14:02 Document 04/12/25 14:05 [id number] 04/12/25 14:16 Document 04/19/25 15:08 [id number] 04/19/25 15:19 04/05/25 04/12/25 04/19/25 13:52 14:05 [...] Date Recorded By Document 04/05/25 14:17 KW [id number] 04/05/25 14:31 KW Edit Result 04/05/25 14:17 KW (1) [id number] 04/11/25 15:41 KW Document 04/12/25 14:24 KW [id number] 04/12/25 14:47 KW Document 04/19/25 15:25 KW [id number] 04/19/25 15:26 KW (1) #2- R BUTTOCK [...] In the meantime, I did review with [facility] inpatient pharmacy to determine oral antibiotic [...] so this was discontinued. Her mother did picker machine operator the Linezolid but has not started this. [...] a courtesy visit with another provider here. 04/20/25805 <Electronically signed by Onelia QUINONES> Cosigner Signature (if applicable): CC: ~ Signed [facility] Work Phone: 1(468) 648-736608-22-2025 Progress note [facility] [address] [place] [address] Progress Note - Wound Care 04/19/25 1710 MR#: [id number] Acct: [id number] Name: CLAUDINE JOSEPH Rep #:[id number] : 1990 35 From: Onelia QUINONES PCP: Dr. Colette Goode MD Status: REG RCR Location: History of Present Illness Date of Service: 04/19/25 Chief Complaint: R buttock pressure ulceration History of Wound: Claudine Josehp is a 34 y/o female with cerebral palsy who is nonverbal and nonmobile, she has full care from her adoptive mother, Peg, who is present at her appointment today. She saw Jaimee to establish care at the [facility] last week; however, due to scheduling [...] Method Room Air Charges/Coding Procedures Integumentary 111xxx-113xx: 57208 Linda musc/fascia 20 sq cm/< Physical Exam [...] Date Recorded By Document 04/05/25 13:24 DL [id number] 04/05/25 13:46 DL Document 04/12/25 13:50 KW [id number] 04/12/25 13:58 KW Document 04/19/25 14:41 KW [id number] 04/19/25 14:44 KW 04/05/25 04/12/25 04/19/25 13:24 13:50 14:41 - Today's Visit Information Type of service Follow-up Visit Follow-up Visit Follow-up Visit (Physician/ACTIVITIES ATTENDANT (Physician/ACTIVITIES ATTENDANT (Physician/ACTIVITIES ATTENDANT ) ) ) Arrival Mode Wheelchair Wheelchair [...] Date Recorded By Document 04/05/25 13:24 DL [id number] 04/05/25 13:46 DL Document 04/12/25 13:50 KW [id number] 04/12/25 13:58 KW Document 04/19/25 14:41 KW [id number] 04/19/25 14:44 KW 04/05/25 04/12/25 04/19/25 13:24 [...] Amt Large (67-100%) Large (67-100%) -Granulation Quality Toone Red -Necrosis Amt Small (1-33%) Medium (34-66%) [...] Recorded Date Recorded By Document 04/05/25 13:52 [id number] 04/05/25 14:02 Document 04/12/25 14:05 [id number] 04/12/25 14:16 Document 04/19/25 15:08 [id number] 04/19/25 15:19 04/05/25 04/12/25 04/19/25 13:52 14:05 [...] Date Recorded By Document 04/05/25 14:17 KW [id number] 04/05/25 14:31 KW Edit Result 04/05/25 14:17 KW (1) [id number] 04/11/25 15:41 KW Document 04/12/25 14:24 KW [id number] 04/12/25 14:47 KW Document 04/19/25 15:25 KW [id number] 04/19/25 15:26 KW (1) #2- R BUTTOCK [...] In the meantime, I did review with [facility] inpatient pharmacy to determine oral antibiotic [...] so this was discontinued. Her mother did picker machine operator the Linezolid but has not started this. [...] Cosigner Signature (if applicable): CC: ~ Signed [facility]08-14-2025 Progress note Author Onelia Gaspar [facility] Note Date/Time 2025 2: 40pm [facility] [address] [place] [address] Progress Note - Wound Care 04/12/25 1435 MR#: [id number] Acct: [id number] Name: CLAUDINE JOSEPH Rep #:[id number] : 1990 35 From: Onelia QUINONES PCP: [...] saw Jaimee to establish care at the [facility] last week; however, due to scheduling [...] 13:50 04/12/25 13:50 Charges/Coding Procedures Integumentary 111xxx-113xx: 64324 Linda musc/fascia 20 sq cm/< Physical Exam [...] Recorded Date Recorded By Document 04/05/25 13:24 [id number] 04/05/25 13:46 DL Document 04/12/25 13:50 [id number] 04/12/25 13:58 04/05/25 04/12/25 13:24 13:50 - Today's Visit Information Type of service Follow-up Visit Follow-up Visit (Physician/ACTIVITIES ATTENDANT (Physician/ACTIVITIES ATTENDANT ) ) Arrival Mode Wheelchair Wheelchair Transfer [...] Recorded Date Recorded By Document 04/05/25 13:24 [id number] 04/05/25 13:46 Document 04/12/25 13:50 [id number] 04/12/25 13:58 04/05/25 04/12/25 13:24 13:50 Wound Center Nurse 1 #2- R BUTTOCK -Current Size (cm) - Length 2 2.5 -Current Size (cm) - Width 1.8 1.8 -Current Size (cm) - Depth 0.1 0.9 -Total Square Cm 3.6 4.50 -Photo Taken Yes -Exudate Amt Small -Exudate Type Serosanguineous Serosanguineous -Wound Margin Distinct, Thickened Outline Attached -Granulation Amt Large (67-100%) -Granulation Quality Toone -Necrosis Amt Small (1-33%) Medium (34-66%) -Necrotic [...] Recorded Date Recorded By Document 04/05/25 13:52 [id number] 04/05/25 14:02 Document 04/12/25 14:05 [id number] 04/12/25 14:16 04/05/25 04/12/25 13:52 14:05 Wound [...] Date Recorded By Document 04/05/25 14:17 KW [id number] 04/05/25 14:31 KW Edit Result 04/05/25 14:17 KW (1) [id number] 04/11/25 15:41 KW (1) #2- R BUTTOCK [...] In the meantime, I did review with [facility] inpatient pharmacy to determine oral antibiotic [...] the next 5-7 days before starting Linezolid. Breanne send Linezolid Rx now so hopefully it will be ready for picker machine operator by time sheis ready for it. For [...] Cosigner Signature (if applicable): CC: ~ Signed [facility] Work Phone: 1(152) 453-909408-14-2025 Progress note [facility] [address] [place] [address] Progress Note - Wound Care 04/12/25 1435 MR#: [id number] Acct: [id number] Name: CLAUDINE JOSEPH Rep #:[id number] : 1990 35 From: Onelia QUINONES PCP: [...] [place]; however, due to scheduling difficulties [...] 13:50 04/12/25 13:50 Charges/Coding Procedures Integumentary 111xxx-113xx: 57385 Linda musc/fascia 20 sq cm/< Physical Exam [...] Date Recorded By Document 04/05/25 13:24 DL [id number] 04/05/25 13:46 DL Document 04/12/25 13:50 KW [id number] 04/12/25 13:58 KW 04/05/25 04/12/25 13:24 13:50 - Today's Visit Information Type of service Follow-up Visit Follow-up Visit (Physician/ACTIVITIES ATTENDANT (Physician/ACTIVITIES ATTENDANT ) ) Arrival Mode Wheelchair Wheelchair Transfer [...] Pain Free? Yes Yes WC - Nurse 1 - General Ulcer Measurement Start: 03/30/25 13:28 Freq: Status: Active Protocol: Activity Type Activity Date Activity User E-sign Co-sign Detail Recorded Client Recorded Date Recorded By Document 04/05/25 13:24 DL [id number] 04/05/25 13:46 DL Document 04/12/25 13:50 KW [id number] 04/12/25 13:58 KW 04/05/25 04/12/25 13:24 13:50 Wound Center Nurse 1 #2- R BUTTOCK -Current Size (cm) - Length 2 2.5 -Current Size (cm) - Width 1.8 1.8 -Current Size (cm) - Depth 0.1 0.9 -Total Square Cm 3.6 4.50 -Photo Taken Yes -Exudate Amt Small -Exudate Type Serosanguineous Serosanguineous -Wound Margin Distinct, Thickened Outline Attached -Granulation Amt Large (67-100%) -Granulation Quality Toone -Necrosis Amt Small (1-33%) Medium (34-66%) -Necrotic [...] Recorded Date Recorded By Document 04/05/25 13:52 [id number] 04/05/25 14:02 Document 04/12/25 14:05 [id number] 04/12/25 14:16 04/05/25 04/12/25 13:52 14:05 Wound [...] Date Recorded By Document 04/05/25 14:17 KW [id number] 04/05/25 14:31 KW Edit Result 04/05/25 14:17 KW (1) [id number] 04/11/25 15:41 KW (1) #2- R BUTTOCK [...] In the meantime, I did review with [facility] inpatient pharmacy to determine oral antibiotic [...] the next 5-7 days before starting Linezolid. Iwrahul send Linezolid Rx now so hopefully it will be ready for picker machine operator by time sheis ready for it. For [...] Cosigner Signature (if applicable): CC: ~ Signed [facility]08-08-2025 Radiology Diagnostic study note [facility] Imaging Services [address] [place] [address] Abdomen/Pelvis W IV Cont ONLY MR#: [id number] Acct: [id number] Name: CLAUDINE JOSEPH Rep #: [id number] : 1990 F 34 From: Walt Najera MD PCP: Dr. Colette Goode MD Status: REG ER Study:Abdomen/Pelvis W IV Cont ONLY Date of E xam: 04/06/25 Exam# [id number] Ordering Dr: Rhina Mena PROCEDURE: ABDOMEN/PELVIS W [...] or pelvic abnormality. 7. Cholecystectomy. Reading Location: [id number] CC: Dr. Colette Goode MD; STACIE Tabor ~ German Tutor: Signed [facility]08-08-2025 Hospital Discharge instructionsAdditional Instructions Today's blood work [...] days. Keep your appointment with them next week.[facility] Work Phone: 1(142) 270-844308-07-2025 Progress note Author Onelia Gaspar [facility] Note Date/Time April 05, 2025 9:3 6pm [facility] [address] [place] [address] Progress Note - Wound Care 04/05/25 1749 MR#: [id number] Acct: [id number] Name: CLAUDINE JOSEPH Rep #:[id number] : 1990 34 From: Onelia QUINONES PCP: [...] [place]; however, due to scheduling difficulties [...] 13:24 04/05/25 13:24 Charges/Coding Procedures Integumentary 111xxx-113xx: 40990 Linda musc/fascia 20 sq cm/< Physical Exam [...] Date Recorded By Document 04/05/25 13:24 DL [id number] 04/05/25 13:46 DL 04/05/25 13:24 - Today's Visit Information Type of service Follow-up Visit (Physician/ACTIVITIES ATTENDANT ) Arrival Mode Wheelchair Transfer Assistance Slade [...] Patient Pain Free? Yes CAROL - Nurse 1 - General Ulcer Measurement Start: 03/30/25 13:28 Freq: Status: Active Protocol: Activity Type Activity Date Activity User E-sign Co-sign Detail Recorded Client Recorded Date Recorded By Document 04/05/25 13:24 DL [id number] 04/05/25 13:46 DL 04/05/25 13:24 Wound Center Nurse 1 #2- R BUTTOCK -Current Size (cm) - Length 2 -Current Size (cm) - Width 1.8 -Current Size (cm) - Depth 0.1 -Total Square Cm 3.6 -Exudate Amt Small -Exudate Type Serosanguineous -Wound Margin Distinct, Outline Attached -Granulation Amt Large (67-100%) -Granulation Quality Toone -Necrosis Amt Small (1-33%) -Necrotic Tissue Type [...] Cleansing No -Anesthetic Used 4% Lidocaine Solution CAROL - Nurse 2 - General Ulcer CM Notes Start: 03/30/25 13:28 Freq: Status: Active Protocol: Activity Type Activity Date Activity User E-sign Co-sign Detail Recorded Client Recorded Date Recorded By Document 04/05/25 13:52 [id number] 04/05/25 14:02 04/05/25 13:52 Wound Center Nurse [...] Recorded Date Recorded By Document 04/05/25 14:17 [id number] 04/05/25 14:31 KW 04/05/25 14:17 Wound Care [...] In the meantime, I did review with [facility] inpatient pharmacy to determine oral antibiotic [...] in 1 week, call sooner with concerns. 04/05/25 <Electronically signed by Onelia QUINONES> Cosigner Signature (if applicable): CC: ~ Signed [facility] Work Phone: 1(651) 772-489408-07-2025 Progress note [facility] [address] [address] Progress Note - Wound Care 04/05/25 7547 MR#: [id number] Acct: [id number] Name: CLAUDINE JOSEPH Rep #:[id number] : 1990 34 From: Onelia QUINONES PCP: [...] saw Jaimee to establish care at the [facility] last week; however, due to scheduling [...] 13:24 04/05/25 13:24 Charges/Coding Procedures Integumentary 111xxx-113xx: 01637 Linda musc/fascia 20 sq cm/< Physical Exam [...] Recorded Date Recorded By Document 04/05/25 13:24 LORI [id number] 04/05/25 13:46 DL 04/05/25 13:24 WC - Today's Visit Information Type of service Follow-up Visit (Physician/ACTIVITIES ATTENDANT ) Arrival Mode Wheelchair Transfer Assistance Slade [...] Patient Pain Free? Yes CAROL - Nurse 1 - General Ulcer Measurement Start: 03/30/25 13:28 Freq: Status: Active Protocol: Activity Type Activity Date Activity User E-sign Co-sign Detail Recorded Client Recorded Date Recorded By Document 04/05/25 13:24 DL [id number] 04/05/25 13:46 DL 04/05/25 13:24 Wound Center Nurse 1 #2- R BUTTOCK -Current Size (cm) - Length 2 -Current Size (cm) - Width 1.8 -Current Size (cm) - Depth 0.1 -Total Square Cm 3.6 -Exudate Amt Small -Exudate Type Serosanguineous -Wound Margin Distinct, Outline Attached -Granulation Amt Large (67-100%) -Granulation Quality Toone -Necrosis Amt Small (1-33%) -Necrotic Tissue Type [...] Recorded Date Recorded By Document 04/05/25 13:52 [id number] 04/05/25 14:02 04/05/25 13:52 Wound Center Nurse [...] Date Recorded By Document 04/05/25 14:17 KYLAH [id number] 04/05/25 14:31 KW 04/05/25 14:17 Wound Care [...] In the meantime, I did review with [facility] inpatient pharmacy to determine oral antibiotic [...] Cosigner Signature (if applicable): CC: ~ Signed [facility]07-31-2025 Evaluation note* Diagnosis Onset Date Resolution Status Admit Date Anemia acute March 29 1:15pm Celiac disease acute March 29, 2025 1:15pm Decubitus ulcer of right but tock, stage 4 acute March 29, 2025 1:15pm Fecal incontinence acute March 012024 1:15pm Incontinence of urine acute Feb 1:15pm Malnutrition acute March 29 2 025 1:15pm Milk intolerance acute February 1:15pm 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, 2025 1:15pm [facility] Work Phone: 1(714) 642-457207-31-2025 Evaluation note* Diagnosis Onset Date Resolution Status [...] ral palsy acute April 05, 2025 1:15pm [facility] Work Phone: 1(475) 785-866207-31-2025 Evaluation note* Diagnosis Onset Date Resolution Status [...] cereb ral palsy acute April 19 2:45pm [facility] Work Phone: 1(640) 140-809207-31-2025 Evaluation note* Diagnosis Onset Date Resolution Status [...] Quadriplegic infantile cerebral palsy acute May 03 10:44am [facility] Work Phone: 1(997) 881-574707-31-2025 Evaluation note* Diagnosis Onset Date Resolution Status Admit Date Anemia acute March 29 1:15pm Celiac disease acute March 29, 2025 1:15pm Decubitus ulcer of right buttock, stage 4 acute March 29, 2025 1:15pm Fecal incontinence acute March 012024 1:15pm Incontinence of urine acute Feb 1:15pm Malnutrition acute March 29, 025 1:15pm Milk intolerance acute February 1:15pm [...] May 10, 2025 2:00pm Fecal incontinence acute 2024 2:00pm Incontinence of urine acute Apr 2:00pm Malnutrition acute May 102024 2:00pm Quadriplegic infantile cerebral palsy acute May 10, 2025 2:00pm [facility] Work Phone: 1(563) 534-791407-25-2025 Progress note Author Onelia Gaspar [facility] Note Date/Time March 23, 2025 9:29 am [facility] [address] [place] [address] Progress Note - Wound Care 03/22/25 1602 MR#: [id number] Acct: [id number] Name: CLAUDINE JOSEPH Rep #:[id number] : 1990 34 From: Onelia QUINONES [...] [place]; however, due to scheduling difficulties [...] Charges/Coding Visit Charges Office Visits / Consults: 10726 OV L3 New 30min Procedures Integumentary 111xxx-113xx: 25346 Linda musc/fascia 20 sq cm/< (26.25 sqcm) [...] Start: 03/14/25 10:21 Freq: Status: Active Protocol: [employer] Activity Type Activity Date Activity User E-sign Co-sign Detail Recorded Client Recorded Date Recorded By Document 03/14/25 10:22 DL [id number] 03/14/25 10:44 DL Document 03/22/25 13:26 DL [id number] 03/22/25 13:40 DL 03/14/25 03/22/25 10:22 13:26 - Today's Visit Information Type of service Initial Visit Follow-up Visit (Physician/ACTIVITIES ATTENDANT ) Arrival Mode Wheelchair Wheelchair Transfer Assistance [...] Date Recorded By Document 03/14/25 10:22 DL [id number] 03/14/25 10:44 DL Document 03/22/25 13:26 DL [id number] 03/22/25 13:40 DL 03/14/25 03/22/25 10:22 13:26 [...] Amt Large (67-100%) Large (67-100%) -Granulation Quality Toone Toone,Red -Necrosis Amt None Present (0 None Present [...] Date Recorded By Document 03/14/25 11:06 BM [id number] 03/14/25 11:24 BMF Document 03/22/25 13:50 DS [id number] 03/22/25 14:03 DS 03/14/25 03/22/25 11:06 13:50 [...] Date Recorded By Document 03/14/25 11:40 ML [id number] 03/14/25 11:42 ML Document 03/22/25 15:51 [facility] [id number] 03/22/25 15:52 [facility] 03/14/25 03/22/25 11:40 15:51 Wound Care Center Nurse 3 #1 R Buttocks Cluster -Ulcer Cleansing Soap and Water Rinsed/ Irrigated with Saline -Foul Odor after Cleansing No -Primary Dressing Applied Aquacel Extra, Aquacel Extra Hysept -Other Dressing dakins 0.25 dakins to wound w/ depth, aquacel extra to proximal area, -Primary Dressing Covered/Secured with Secured with Tape -Other Covering abd pad; atb oint to maknezie wound -Aquacel Extra 1 1 -Hysept 1 [...] week, call sooner with concerns. 03/23/25 0929 <Electronically signed by Onelia QUINONES> Cosigner Signature (if applicable): CC: ~ Signed [facility] Work Phone: 1(574) 391-380507-25-2025 Progress note [facility] [address] [place] [address] Progress Note - Wound Care 03/22/25 1602 MR#: [id number] Acct: [id number] Name: CLAUDINE JOSEPH Rep #:[id number] : 1990 34 From: Onelia QUINONES [...] [facility]; however, due to scheduling difficulties [...] Charges/Coding Visit Charges Office Visits / Consults: 94206 OV L3 New 30min Procedures Integumentary 111xxx-113xx: 96494 Linda musc/fascia 20 sq cm/< (26.25 sqcm) [...] Date Recorded By Document 03/14/25 10:22 DL [id number] 03/14/25 10:44 DL Document 03/22/25 13:26 DL [id number] 03/22/25 13:40 DL 03/14/25 03/22/25 10:22 13:26 - Today's Visit Information Type of service Initial Visit Follow-up Visit (Physician/ACTIVITIES ATTENDANT ) Arrival Mode Wheelchair Wheelchair Transfer Assistance [...] Date Recorded By Document 03/14/25 10:22 DL [id number] 03/14/25 10:44 DL Document 03/22/25 13:26 DL [id number] 03/22/25 13:40 DL 03/14/25 03/22/25 10:22 13:26 [...] Amt Large (67-100%) Large (67-100%) -Granulation Quality Toone Toone,Red -Necrosis Amt None Present (0 None Present [...] Recorded Date Recorded By Document 03/14/25 11:06 [facility] [id number] 03/14/25 11:24 [facility] Document 03/22/25 13:50 DS [id number] 03/22/25 14:03 DS 03/14/25 03/22/25 11:06 13:50 [...] Date Recorded By Document 03/14/25 11:40 ML [id number] 03/14/25 11:42 ML Document 03/22/25 15:51 BMF [id number] 03/22/25 15:52 BMF 03/14/25 03/22/25 11:40 15:51 [...] 1 week, call sooner with concerns. 03/23/25 9862 Cosigner Signature (if applicable): CC: ~ Signed [facility]07-16-2025 History and physical note Author Jaimee Marshall [facility] Note Date/Time March 14, 2025 12:4 1pm [facility] [address] [place] [address] H&P Exam - Wound Care 03/14/25 1222 MR#: [id number] Acct: [id number] Name: CLAUDINE JOSEPH Rep #:[id number] : 1990 34 From: Jaimee Marshall NP RETAIL SERVICE REPRESENTATIVE-C PCP: Dr. Colette Goode MD Status: REG [...] doctor down by their house. Mother and cabinet installer take care of her 22/03 she doeshave [...] is cannot probably need a wound VAC. [facility] Medical History (Updated 03/14/25 @ 12:38 by Jaimee Marshall NP, RETAIL SERVICE REPRESENTATIVE-C) Quadriplegic infantile cerebral palsy Home Medications ?Medication [...] (ClearLax) promethazine 12.5 mg rectal 12.5 mg TN Q6H nausea 02/27 02/21 Unknown History suppository [...] Start: 03/14/25 10:21 Freq: Status: Active Protocol: WC.LOWEXT Activity Type Activity Date Activity User E-sign Co-sign Detail Recorded Client Recorded Date Recorded By Document 03/14/25 10:22 DL [id number] 03/14/25 10:44 DL 03/14/25 10:22 - Today's Visit Information Type of service [...] Date Recorded By Document 03/14/25 10:22 DL [id number] 03/14/25 10:44 DL 03/14/25 10:22 Wound Center Nurse 1 #1 R Buttocks Cluster -Current Size (cm) - Length 6.6 -Current Size (cm) - Width 4.2 -Current Size (cm) - Depth 1.8 -Total Square Cm 27.72 -Photo Taken Yes -Exudate Amt Medium -Exudate Type Serosanguineous -Wound Margin Distinct, Outline Attached -Granulation Amt Large (67-100%) -Granulation Quality Toone -Necrosis Amt None Present (0 %) -Necrotic Tissue Type Adherent Slough -Structure Exposed N/A -Texture (Makenzie-wound Skin Appearance) Scarring,Rash -Moisture (Makenzie-wound Skin Appearance) No Abnormality -Color (Makenzie-wound Skin Appearance) No Abnormality -Temperature (Makenzie-wound Skin No Abnormality Appearance) (Pt Warm) -Ulcer Cleansing Soap and Water -Foul Odor after Cleansing No -Anesthetic Used 5% Lidocaine Gel - Nurse 2 - General Ulcer CM Notes Start: 03/14/25 10:21 Freq: Status: Active Protocol: Activity Type Activity Date Activity User E-sign Co-sign Detail Recorded Client Recorded Date Recorded By Document 03/14/25 11:06 BMF [id number] 03/14/25 11:24 [facility] 03/14/25 11:06 Wound Center Nurse 2 -Time [...] Date Recorded By Document 03/14/25 11:40 ML [id number] 03/14/25 11:42 ML 03/14/25 11:40 Wound Care [...] 1241 <Electronically signed by Jaimee Marshall NP RETAIL SERVICE REPRESENTATIVE-C> Cosigner Signature (if applicable): CC: ~ Signed [facility] Work Phone: 1(684) 203-668507-16-2025 Radiology Diagnostic study note [facility] Imaging Services [address] [place] [address] HIP, UNI W/ Pelvis 2-3 Views MR#: [id number] Acct: [id number] Name: CLAUDINE JOSEPH Rep #: [id number] : 1990 F 34 From: Corina Walter MD PCP: Dr. Colette Goode MD Status: REG RCR Study:HIP, UNI W/ Pelvis 2-3 Views Date of Ex am: 03/14/25 Exam# [id number] Ordering Dr: Jaimee Ann NP RETAIL SERVICE REPRESENTATIVE-C EXAM: XR Right Hip With Pelvis When [...] scan or MRI is recommended. Reading [facility] CC: RETAIL SERVICE REPRESENTATIVE-C Jaimee Marshall; Dr. Colette Goode MD ~ German Tutor: Signed [facility]07-16-2025 History and physical note [facility] [address] [place] [address] H&P Exam - Wound Care 03/14/25 1222 MR#: [id number] Acct: [id number] Name: CLAUDINE JOSEPH Rep #:[id number] : 1990 34 From: Jaimee Marshall NP RETAIL SERVICE REPRESENTATIVE-C PCP: Dr. Colette Goode MD Status: REG [...] doctor down by their house. Mother and cabinet installer take care of her 22/03 she doeshave [...] is cannot probably need a wound VAC. [facility] Medical History (Updated 03/14/25 @ 12:38 by Jaimee Marshall NP, RETAIL SERVICE REPRESENTATIVE-C) Quadriplegic infantile cerebral palsy Home Medications ?Medication [...] (ClearLax) promethazine 12.5 mg rectal 12.5 mg TN Q6H nausea 02/27 02/21 Unknown History suppository [...] Date Recorded By Document 03/14/25 10:22 LORI [id number] 03/14/25 10:44 DL 03/14/25 10:22 - Today's Visit Information Type of service [...] Recorded Date Recorded By Document 03/14/25 10:22 [id number] 03/14/25 10:44 DL 03/14/25 10:22 Wound Center Nurse 1 #1 R Buttocks Cluster -Current Size (cm) - Length 6.6 -Current Size (cm) - Width 4.2 -Current Size (cm) - Depth 1.8 -Total Square Cm 27.72 -Photo Taken Yes -Exudate Amt Medium -Exudate Type Serosanguineous -Wound Margin Distinct, Outline Attached -Granulation Amt Large (67-100%) -Granulation Quality Toone -Necrosis Amt None Present (0 %) -Necrotic [...] Recorded Date Recorded By Document 03/14/25 11:06 [facility] [id number] 03/14/25 11:24 [facility] 03/14/25 11:06 Wound Center Nurse 2 -Time [...] Patient Pain Free? Yes WC - Nurse 3 - General Ulcer D/C NN Start: 03/14/25 10:21 Freq: Status: Active Protocol: Activity Type Activity Date Activity User E-sign Co-sign Detail Recorded Client Recorded Date Recorded By Document 03/14/25 11:40 ML [id number] 03/14/25 11:42 ML 03/14/25 11:40 Wound Care [...] Cosigner Signature (if applicable): CC: ~ Signed [facility]06-17-2025 History of Present illness Narrative* Celena Fields MD - 02/13/2025 2:00 PM EDT [facility] Toxin Procedure Injection Note 02/13/25 [...] which was understandably very distressing to Peg. Gordokimynor Peg is well trained on CPR and [...] concerns. - Please also send me a [employer] message in about four weeks to update [...] Celena Fields MD Neuroimmunology & Multiple Sclerosis [facility] Clinic documented in this [id number] [facility] Telephone encounter Note* Telephone Encounter - Boubacar Mclean MA - 01/31/2025 12:20 PM EDT Pharmacy requires a new script due to the 2 dose box being D/C'd by the fire inspector. Please review. [id number] Miscellaneous Notes* Telephone Encounter - Boubacar Mclean MA - 01/31/2025 12:20 PM EDT Pharmacy requires a new script due to the 2 dose box being D/C'd by the fire inspector. Please review. documented in this [id number] NotePROCEDURE: ULTRASOUND RENAL, 01/29/2025 2:57 PM EDT [...] No focal renal abnormality. 5. Decompressed urinary bladder.[facility]04-17-2025 History of Present illness Narrative* Ruma Godwin, ACTIVITIES ATTENDANT - 12/14/2024 2:00 PM EDT [facility] Sp[facility] Clinic: Intrathecal Baclofen [...] clinic. OTHER RELEVANT HISTORY Multiple Sclerosis Center ROS - 12/14/24 1358 General Change in weight [...] past medical history of Acute respiratory failure ([facility]), Allergic rhinitis, Anoxic brain damage ([facility]), Aspiration, chronic pulmonary, Bowel and bladder incontinence, Cerebral palsy ([facility]), Chronic kidney disease, Chronic osteomyelitis of pelvic region, right ([facility]) (2018), Chronic respiratory failure with hypoxia ([facility]), Constipation, COVID-19 (06/2020), Epilepsy ([facility]), GERD (gastroesophageal reflux disease), MRSA (methicillin resistant Staphylococcus aureus) (04/2016), Muscle spasticity, Nonverbal, PEG (percutaneous endoscopic gastrostomy) status ([facility]), Presence of intrathecal baclofen pump (1999), [...] months) Synchromed I IPump Size: 40 mL [place] Location: 1:30 Catheter Tip Placement: PLAN REGARDING INTRATHECAL BACLOFEN THERAPY First Medication Brand: Baclofen Concentration: 2000 mcg/mL Total Daily Dose: 651 mcg/day 1. Pump Programming: Simple Continuous 2. Pump Robertson Refill: Not required today 3. Programming Adjustments today: annual spasticity visit; [facility] provides home refills; maintained current dose 651 mcg/day 4. ITB system Procedures today: pump computer interrogation 5. Last reservoir refill date: 10/26/24 6. Pump Low Robertson Alarm Date: 02/19/25 7. Claudine Joseph and/or [...] long periods of sitting (long car ride, [employer] meeting) F. Don't get too cool. Cold [...] our clinic contact information at all times. [facility] can be reached for emergencies and after hours by calling the [facility] at . PATIENT AND CARE PROVIDER EDUCATION [...] reservoir through the catheter. Using an external operating systems programmer, your treatment team can make adjustments in [...] be arranged to be done by aMedtronic Instrument Calibrator if scheduled during business hours. We recommend [...] savings time after being interrogated by a operating systems programmer. The flex/bolus dosing patient should schedule a [...] MS, BSN, ACNP- Acute Care Nurse Practitioner [facility] [place] [address], [address] [place] [address] Office [phone] [1] Allergies Allergen Reactions Levaquin [Levofloxacin] Rash, flushing with RUE arm swelling. Augmentin [Amoxicillin-Pot Clavulanate] Rash Per mother- tolerates Zosyn, unable to tolerate amoxil (blisters upper extremity) Lactose Intolerance [Lactase] Penicillins Other (See Comments) Blisters- amoxil Ragweed Unknown documented in this [id number] [facility]03-[facility]-20[facility] History of Present illness Narrative* Celena Fields MD - 11/07/2024 11:00 AM EDT [facility] Toxin Procedure Injection Note 11/07/24 [...] concerns. - Please also send me a [employer] message in about four weeks if you [...] Celena Fields MD Neuroimmunology & Multiple Sclerosis [facility] Clinic documented in this [id number] NoteBrecksville [facility]03-10-20[facility] Instructions* Patient Instructions* Yany Wright CNP - 11/06/2024 3:07 PM EDT Call [phone] and Press 1 or MyChart with questions, concerns or any seizure activity. I did change the Valtoco to 15 mg, 7.5 mg in each nares to equal 15 mg with any seizure or seizure cluster. I sent the prescription to your pharmacy. I sent prescriptions for lamotrigine and Valtoco to the [facility] pharmacy. I sent prescription for Epidiolex to the [facility] specialty pharmacy. documented in this [id number] NoteVideo Visit [facility] OFFICE [facility], NEUROSCIENCE [address] [place] [phone] Via Real-time Synchronous Audiovisual [facility] 11/06/2024 Yany Wright CNP Provider Location: [facility] Patient Location Social Work Instructor: None Patient Location: Patient's Home Patient: [...] that there are some limitations compared to qmax-tt-qykg evaluations. We elected to proceed. Chief Complaint: Follow-up for Seizures (Pt calling in for follow up. Pt cabinet installer reports the patient is still having seizure [...] note, mom reports terrible hospital stay at [facility], only residents on weekends, nights or holidays. [...] 10. Seizure Risk Factors: Head trauma No LUBE MAN Infections No Stroke/IPH No Family history Unknown Gestational, Delivery, or Developmental Abnormalities Cerebral anoxia at . Febrile seizures Unknown. Prior workup: MRI- was completed but report was not available today EEG- From [facility] 1999 Álvaro, Generalized, Maximum bifrontal, 2001 Intermittent [...] Generalized edema Sepsis (HCC) Sacral decubitus ulcer Charlotte-Gastaut syndrome (HCC) Pneumonia UTI (urinary tract infection) Sacral wound, initial encounter COVID-19 Pressure injury of right ischium, stage 3 (HCC) Pain around PEG tube site Multifocal pneumonia Bacteremia In (more content not included)...[facility] [id number] History of Present illness Narrative* Yany Wright CNP - 11/06/2024 2:45 PM EDT Video Visit [facility] MEDICAL OFFICE [facility], NEUROSCIENCE [address] [place] [address] [facility] [phone] Via Real-time Synchronous Audiovisual [facility] 11/06/2024 Yany Wright CNP Provider Location: [facility] Patient Location Social Work Instructor: None Patient Location: Patient's Home Patient: [...] that there are some limitations compared to zgku-vm-jlrk evaluations. We elected to proceed. Chief Complaint: Follow-up for Seizures (Pt calling in for follow up. Pt cabinet installer reports the patient is still having seizure [...] note, mom reports terrible hospital stay at [facility], only residents on weekends, nights or holidays. [...] 10. Seizure Risk Factors: Head trauma No LUBE MAN Infections No Stroke/IPH No Family history Unknown Gestational, Delivery, or Developmental Abnormalities Cerebral anoxia at . Febrile seizures Unknown. Prior workup: MRI- was completed but report was not available today EEG- From [facility] 1999 Álvaro, Generalized, Maximum bifrontal, 2001 Intermittent [...] Generalized edema Sepsis (HCC) Sacral decubitus ulcer Charlotte-Gastaut syndrome (HCC) Pneumonia UTI (urinary tract infection) [...] (Valtoco) 15 mg/2 spray (7.5/0.1mL x 2) [place] Half of the dose should be delivered [...] diazePAM (Valtoco) 15 mg/2 spray (7.5/0.1mL x2) [place] lamoTRIgine (LAMICTAL) 100 MG tablet lamoTRIgine (LAMICTAL) [...] she is doing well. - Follows with Backend Python Developer. Thanks once again for involving our practice in [facility]. As always, it is a pleasure to participate in the care of your patients, and we remain available to any of your patients who would benefit from timely neurological evaluation. Sincerely, Yany Wright, CADE, ROCKY, LUBE MAN Epilepsy Clinic and Epilepsy Monitoring Unit Nurse Practitioner [facility] documented in this [id number] Instructions* Patient Instructions* Yany Wright CNP - 08/14/2024 2:48 PM EST Call [phone] and Press 1 or MyChart with questions, [...] prescription to your pharmacy. documented in this [id number] NoteVideo Visit [facility] MEDICAL OFFICE [facility], [address] [phone] Via Real-time Synchronous Audiovisual [facility] 08/14/2024 Yany rWight CNP Provider Location: [facility] Patient Location Social Work Instructor: None Patient Location: Patient's Home Patient: [...] that there are some limitations compared to awyo-oe-cbnq evaluations. We elected to proceed. Chief Complaint: Follow-up for Seizures (Pt calling in for follow up with cabinet installer. Ab Initio Etl Developer reports frequent seizures since ROSIE. ) 34 [...] home. Mom reports terrible hospital stay at [facility], only residents on weekends, nights or holidays. [...] above. Current Anti-convulsants(Prior to (more content not included)...[facility]12-16-2024 History of Present illness Narrative* Yany Wright CNP - 08/14/2024 2:20 PM EST Video Visit [facility] MEDICAL OFFICE [facility], NEUROSCIENCE [address] [place] [phone] Via Real-time Synchronous Audiovisual [facility] 08/14/2024 Yany Wright CNP Provider Location: [facility] Patient Location Social Work Instructor: None Patient Location: Patient's Home Patient: [...] that there are some limitations compared to vyzr-xx-rxiv evaluations. We elected to proceed. Chief Complaint: Follow-up for Seizures (Pt calling in for follow up with cabinet installer. Ab Initio Etl Developer reports frequent seizures since ROSIE. ) 34 [...] home. Mom reports terrible hospital stay at [facility], only residents on weekends, nights or holidays. [...] 10. Seizure Risk Factors: Head trauma No LUBE MAN Infections No Stroke/IPH No Family history Unknown Gestational, Delivery, or Developmental Abnormalities Cerebral anoxia at . Febrile seizures Unknown. Prior workup: MRI- was completed but report was not available today EEG- From [facility] 1999 Álvaro, Generalized, Maximum bifrontal, 2001 Intermittent Rhythmic Slow, Generalized and regional Left Occipital EEG 2017- mild to moderate diffuse encephalopathy that is nonspecific. 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[facility]) Torticollis Pneumonia due to infectious organism Spasticity Febrile illness, acute Encephalopathy Hypoxia Restrictive lung disease due to kyphoscoliosis Aspiration, chronic pulmonary Tachycardia Generalized edema Sepsis ([facility]) Sacral decubitus ulcer 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 diazePAM 10 mg/spray (0.1 mL) [place] Instill 1 spray into each nostril daily [...] Metabolic Panel diazePAM 10 mg/spray (0.1 mL) [place] 2. 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HCC) 3. Acute [...] visit for severe sepsis. - Follows with Backend Python Developer. Thanks once again for involving our practice in Claudine's care. As always, it is a pleasure to participate in the care of your patients, and we remain available to any of your patients who would benefit from timely neurological evaluation. Sincerely, Yany Wright, CADE, ACTIVITIES ATTENDANT, LUBE MAN Epilepsy Clinic and Epilepsy Monitoring Unit Nurse Practitioner [facility] documented in this [id number] Telephone encounter Note* Telephone Encounter - Carola Paul MA - 08/01/2024 2:45 PM EST Pt switched pharmacies, last appt 03/2024 [id number] Miscellaneous Notes* Telephone Encounter - Carola Paul MA - 08/01/2024 2:45 PM EST Pt switched pharmacies, last appt 03/2024 documented in this [id number] [facility]-2024 [facility]2024 [facility]13-2024 [facility]13-2024 [facility] 05-11-2024 [facility]12-2024 [facility]-2024 [facility]-2024 [facility]-10-2024 [facility]10-2024 [facility]-2024 [facility] 05-08-2024 [facility]-2024 [facility]08-2024 [facility]-08-2024 [facility]-07-2024 [facility]09-07-2024 [facility]-2024 [facility] 05-05-2024 NoteTrach site looks good. OK to ct sutures holding trach on 05/11 and assume routine trach care. ENT will sign off. Reconsult if needed AUTHENTICATED BY CHRISTINE OSCAR, ON 05/05/2024 15:14:54[facility]24 [facility]-06-2024 [facility]-06-2024 [facility]-05-2024 [facility]05-2024 [facility] 05-04-2024 [facility]-04-2024 [facility]-04-2024 [facility]-04-2024 [facility]-03-2024 [facility]-03-2024 [facility]03-2024 [facility] 05-01-2024 [facility]-02-2024 [facility]-02-2024 [facility]-01-2024 [facility]-01-2024 [facility]-01-2024 [facility]-31-2024 [facility] 04-29-2024 [facility]-31-2024 [facility]-31-2024 [facility]-30-2024 [facility]-30-2024 [facility]-30-2024 [facility]30-2024 [facility] 04-27-2024 [facility]-29-2024 [facility]-29-2024 [facility]-29-2024 [facility]-28-2024 [facility]-28-2024 [facility]28-2024 [facility] 04-26-2024 [facility]-27-2024 [facility]-27-2024 [facility]-27-2024 [facility]27-2024 [facility]-27-2024 Note [facility]27-2024 [facility] 04-25-2024 [facility]-27-2024 [facility]-26-2024 [facility]-25-2024 [facility]-24-2024 [facility]-07-2024 Telephone encounter Note* Telephone Encounter - Elroy Lopez RN - 04/05/2024 11:31 AM EDT Spoke with Cailin Saldivar RN with [facility]. Was informed she recently filled patient's pump and patient's mother, Peg, is asking for a refill of EMLA cream for patient. Prescription pended for review. [id number] Miscellaneous Notes* Telephone Encounter - Elroy Lopez RN - 04/05/2024 11:31 AM EDT Spoke with Cailin Saldivar RN with [facility]. Was informed she recently filled patient's pump and patient's mother, Peg, is asking for a refill of EMLA cream for patient. Prescription pended for review. documented in this [id number] Instructions* Patient Instructions* Yany Wright CNP - 04/04/2024 2:15 PM EDT Call [phone] and Press 1 or MyChart with questions, [...] prescription to your pharmacy. documented in this [id number] History of Present illness Narrative* Yany Wright CNP - 04/04/2024 2:03 PM EDT NEUROLOGY Office Visit [facility] [address] [place] [address], [address] [place] [phone] (office) / [phone] (fax) Patient Name: Claudine Joseph : 1990 MR #: [id number] Date of Neurology Follow-up: 04/10/24 Name of Provider: Yany Wright CNP, LUBE MAN, ACTIVITIES ATTENDANT Other Physicians: Marielle Duque MD (Primary Care Physician) Chief Complaint: Follow-up for Seizures (Pt here for follow up. Ab Initio Etl Developer reports smaller seizure events since ROSIE. ) [...] 10. Seizure Risk Factors: Head trauma No LUBE MAN Infections No Stroke/IPH No Family history Unknown Gestational, Delivery, or Developmental Abnormalities Cerebral anoxia at . Febrile seizures Unknown. Prior workup: MRI- was completed but report was not available today EEG- From [facility] 1999 Álvaro, Generalized, Maximum bifrontal, 2001 Intermittent [...] Generalized edema Sepsis (HCC) Sacral decubitus ulcer Charlotte-Gastaut syndrome (HCC) Pneumonia UTI (urinary tract infection) Sacral wound, initial encounter COVID-19 Pressure injury of right ischium, stage 3 (HCC) Pain around PEG tube site Multifocal pneumonia Bacteremia Intrathecal pump infection, initial encounter ([facility]) Home Medications: Current Outpatient Medications Medication [...] (Valtoco) 15 mg/2 spray (7.5/0.1mL x 2) [place] 7.5 mg by Each Nare route as [...] bipap for acute hypercapnia. - Follows with Backend Python Developer. Thanks once again for involving our practice in [facility]. As always, it is a pleasure to participate in the care of your patients, and we remain available to any of your patients who would benefit from timely neurological evaluation. Sincerely, Yany Wright, CADE, ACTIVITIES ATTENDANT, LUBE MAN Epilepsy Clinic and Epilepsy Monitoring Unit Nurse Practitioner [facility] documented in this [id number] Note* Addendum Note - Ruma Godwin CNP - 03/27/2024 10:53 AM EDTAddended by: RUMA GODWIN on: 03/27/2024 10:53 AM Modules accepted: Orders [id number] Miscellaneous Notes* Addendum Note - Ruma Godwin [...] Alarm: 04/07/24 Call made to [facility] at [phone]. Spoke to rep. Patient is scheduled for [...] a call. Thanks :) documented in this [id number] Note* Addendum Note - Elroy Lopez RN - 03/27/2024 10:03 AM EDTAddended by: ELROY LOPEZ on: 03/27/2024 10:03 AM Modules accepted: Orders [id number] Note* Addendum Note - Elroy Lopez RN - 03/27/2024 10:03 AM EDTAddended by: ELROY LOPEZ on: 03/27/2024 10:03 AM Modules accepted: Orders [id number] Miscellaneous Notes* Addendum Note - Elroy Lopez RN - 03/27/2024 10:03 AM EDTAddended by: ELROY LOPEZ on: 03/27/2024 10:03 AM Modules accepted: Orders * Telephone Encounter - Elroy Lopez RN - 03/27/2024 9:51 AM EDT Alarm: 04/07/24 Call made to [facility] at [phone]. Spoke to rep. Patient is scheduled for [...] a call. Thanks :) documented in this [id number] Telephone encounter Note* Telephone Encounter - Elroy Lopez RN - 03/27/2024 9:51 AM EDT Alarm: 04/07/24 Call made to [facility] at [phone]. Spoke to rep. Patient is scheduled for a pump refill on March 29, 2024. New order is needed. Prescription pended. [id number] [facility] History of Present illness Narrative* Ruma Godwin CNP - 03/27/2024 9:34 AM EDT Called and spoke with Peg, wants to continue with [facility] filling her pump. Claudine is doing well and does not need a dose adjustment. We will cancel contact [facility] to fill her pump and cancel her appointment on 03/31 with me. Peg understands we will need to see Claudine in clinic annually, due 11/2024. Peg verbalized understanding and was appreciative of the call. documented in this [id number] History of Present illness Narrative* Ruma Godwin CNP - 03/27/2024 9:34 AM EDT Called and spoke with Peg, wants to continue with [facility] filling her pump. Claudine is doing well and does not need a dose adjustment. We will cancel contact [facility] to fill her pump and cancel her appointment on 03/31 with me. Peg understands we will need to see Claudine in clinic annually, due 11/2024. Peg verbalized understanding and was appreciative of the call. documented in this [id number] Telephone encounter Note* Telephone Encounter - Narcisa [...] could give her a call. Thanks :) [id number] History of Present illness Narrative* Stephy Cisse [...] wants to switch the O2 supplier from [facility] to [facility] [place]. She reports difficulty calling into [facility] about Claudine's O2. She suspects the home [...] (Valtoco) 15 mg/2 spray (7.5/0.1mL x 2) [place], 7.5 mg by Each Nare route as [...] 01/25/1992 INFLUENZA IIV4 6MO OR > FLUARIX/FLUZONE/AFLURIA 61397 08/01/2016, 11/24/2016, 09/27/2019 IPV 07/02/2003 Influenza Whole [...] pulmonary Bowel and bladder incontinence Cerebral palsy ([facility]) Chronic kidney disease Chronic osteomyelitis of pelvic region, right ([facility]) 2019 required right ischial debridement, followed by Dr. Noland of plastics Chronic respiratory failure with hypoxia ([facility]) 3 L NC, followed by Dr. Stephy Cisse and Dr. Amalia Terry Constipation COVID-19 06/2020 Epilepsy ([facility]) followed at [facility] neurology clinic GERD (gastroesophageal reflux disease) occasional vomiting with gagging MRSA (methicillin resistant Staphylococcus aureus) 04/2016 Bilateral lungs Muscle spasticity medically refractory and has baclofen pump since 1999, followed at [facility] neuro baclofen pump clinic Nonverbal Answers yes with very long blinks per adoptive parent PEG (percutaneous endoscopic gastrostomy) status ([facility]) Presence of intrathecal baclofen pump 1999 [...] RIGHT ISCHIUM; Surgeon: Rad Luque MD; Location: [facility] Main OR; Service: Orthopedic INSERTION PERCUTANEOUS ENDOSCOPIC GASTROSTOMY TUBE INTRATHECAL PUMP REMOVAL Bilateral 07/15/2022 Procedure: REMOVAL OF RIGHT INTRATHECAL PUMP, CATHETER WITH REPLACEMENT ON LEFT SIDE; Surgeon: Jose Portillo MD; Location: [facility] NEURO OR; Service: Neurological LAMINECTOMY DECOMP THORACIC MULTI LEVEL N/A 07/27/2016 Procedure: T1-2 THORACIC FUSION REVISION ; Surgeon: Kb Ramsey MD; Location: [facility] [place]; Service: REVISION PAIN PUMP N/A 07/27/2016 Procedure: BACLOFEN PUMP REPLACEMENT ; Surgeon: Kb Ramsey MD; Location: [facility]; Service: SALIVARY GLAND SURGERY Family [...] tube MS: Significant scolioss documented in this [id number] Note* Addendum Note - Celena Fields MD - 03/14/2024 9:00 AM EDTAddended by: CELENA FIELDS on: 03/14/2024 09:00 AM Modules accepted: Orders [id number] Note* Addendum Note - Celena Fields MD - 03/14/2024 9:00 AM EDTAddended by: CELENA FIELDS on: 03/14/2024 09:00 AM Modules accepted: Orders [id number] Miscellaneous Notes* Addendum Note - Celena Fields MD - 03/14/2024 9:00 AM EDTAddended by: CELENA FIELDS on: 03/14/2024 09:00 AM Modules accepted: Orders documented in this [id number] [facility]07-16-2024 History of Present illness Narrative* Celena Fields MD - 03/14/2024 7:54 AM EDT [facility] Toxin Procedure Injection Note 03/14/24 [...] Celena Fields MD Neuroimmunology & Multiple Sclerosis [facility] Clinic documented in this [id number] Telephone encounter Note* Telephone Encounter - Janet Obrien RN - 02/21/2024 12:21 PM EDT Patient mother called to have all AED's transferred to [facility], due to [facility] closing. [id number] Miscellaneous Notes* Telephone Encounter - Janet Obrien RN - 02/21/2024 12:21 PM EDT Patient mother called to have all AED's transferred to [facility], due to [facility] closing. documented in this [id number] History of Present illness Narrative* Richar Talbert MD - 01/18/2024 1:23 PM EDT [facility] [address] [place] [address], [place] [address] (office) / [phone] (fax) REFERRING or PRIMARY: Marielle Duque Md [address] [place] [address] DATE OF VISIT: 01/18/24 PATIENT NAME: Claudine Joseph DATE OF : 1990 CHIEF COMPLAINT: Seizures (Pt here for follow up. 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 ) INTERVAL HISTORY: This is a 33 y.o. female returning for follow-up regarding a chief complaint of Seizures (Pt here for follow up. 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 She has previously followed with the [facility] but is transitioning to local docs. Semiology: [...] triggers Seizure Risk Factors: Head trauma No LUBE MAN Infections No Stroke/IPH No Family history Unknown Gestational, Delivery, or Developmental Abnormalities Cerebral anoxia at . Febrile seizures Unknown. Prior workup: MRI- was completed but report was not available today EEG- From [facility] 1999 Álvaro, Generalized, Maximum bifrontal, 2001 Intermittent [...] past medical history of Acute respiratory failure ([facility]), Allergic rhinitis, Anoxic brain damage ([facility]), Aspiration, chronic pulmonary, Bowel and bladder incontinence, Cerebral palsy ([facility]), Chronic kidney disease, Chronic osteomyelitis of pelvic region, right ([facility]) (2018), Chronic respiratory failure with hypoxia ([facility]), Constipation, COVID-19 (06/2020), Epilepsy ([facility]), GERD (gastroesophageal reflux disease), MRSA (methicillin resistant Staphylococcus aureus) (04/2016), Muscle spasticity, Nonverbal, PEG (percutaneous endoscopic gastrostomy) status ([facility]), Presence of intrathecal baclofen pump (1999), [...] (Valtoco) 15 mg/2 spray (7.5/0.1mL x 2) [place], 7.5 mg by Each Nare route as [...] Sincerely, Richar Talbert MD, ABPN Adult Epileptologist/Neurologist [facility]psy [facility] A Level 4, NAEC-Certified Epilepsy Center Thank you for allowing me to participate in the care of this patient. If you have any questions, please feel free to contact my office. Return in about 3 months (around 04/19/2024) for YUDY Wright. documented in this [id number] History of Present illness Narrative* Mignon Jordan, OT - 01/13/2024 3:30 PM EDT [facility] OUTPATIENT REHABILITATION DAILY TREATMENT NOTE Today's Date [...] Notes Total treatment time: 15:31-16:17. Therapeutic Exercise (62484) Intervention PROM HEP education to promote improved [...] Visit: Discharge Mignon Jordan OTR/L STATE LICENSE, [id number] documented in this [id number] History of Present illness Narrative* Mignon Jordan OT - 01/11/2024 2:38 PM EDT This note is to serve as documentation for today's session cancellation. Information obtained through outpatient registration staff. Per report, patient's mother called to cancel today due to schedule conflicts. Patient's mother working with outpatient physical therapy asst to schedule additional visi ts. documented in this [id number] History of Present illness Narrative* Mignon Jordan OT - 01/07/2024 2:28 PM EDT This note is to serve as documentation for today's session cancellation. Information obtained through outpatient registration staff. Per report, the patient's mother called to cancel due to both she and the patient being sick. documented in this [id number] Telephone encounter Note* Telephone Encounter - Carola Paul MA - 01/07/2024 8:18 AM EDT Last appt 08/2023, next appt 12/2023 [id number] Miscellaneous Notes* Telephone Encounter - Carola Paul MA - 01/07/2024 8:18 AM EDT Last appt 08/2023, next appt 12/2023 documented in this [id number] History of Present illness Narrative* Mignon Jordan OT - 12/28/2023 12:30 PM EDT [facility] Occupational Therapy Evaluation Today's Date 12/28/2023 Patient Name: Claudine Joseph Date of : 1990 Case Name: OT-Spasticity Functional Diagnosis: 1. Spasticity 2. 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HCC) Clinical Information: Subjective Referring Diagnosis: G80.1 (ICD-10-CM) - 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HCC) Patient accompanied by: The patient's guardian and adoptive mother, Peg, present. History of Present Illness Per medical records dated: Information taken during follow-up appointment at spasticity clinic on 12/13/2023 Contemporary Medical History: Past medical history of Acute respiratory failure (HCC), Allergic rhinitis, Anoxic brain damage (HCC), Aspiration, chronic pulmonary, Bowel and bladder incontinence, Cerebral palsy ([facility]), Chronic kidney disease, Chronic osteomyelitis of pelvic region, right (HCC) (2018), Chronic respiratory failure with hypoxia ([facility]), Constipation, COVID-19 (06/2020), Epilepsy ([facility]),GERD (gastroesophageal reflux disease), MRSA (methicillin resistant Staphylococcus aureus) (04/2016), Muscle spasticity, Nonverbal, PEG (percutaneous endoscopic gastrostomy) status ([facility]), Presence ofintrathecal baclofen pump (1999), Restrictive [...] visits Duration: 2 weeks Interventions: Therapeutic Exercise (66663), Manual Therapy (70808), Therapeutic/ Functional Activities (24244), Self Care (29516), and Orthotic Management - Initial (91627) Rehab Potential: fair Occupational Therapy Neuro goals: [...] disease Clinical Impression: Claudine Joseph presents to [facility] on 12/28/2023 for an occupational [...] above number. Mignon Jordan OTR/L STATE LICENSE, [id number] documented in this [id number] History of Present illness Narrative* Mignon Jordan OT - 12/28/2023 12:30 PM EDT [facility] Occupational Therapy Evaluation Today's Date 12/28/2023 Patient Name: Claudine Joseph Date of : 1990 Case Name: OT-Spasticity Functional Diagnosis: 1. Spasticity 2. 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HCC) Clinical Information: Subjective Referring Diagnosis: G80.1 (ICD-10-CM) - 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HCC) Patient accompanied by: The patient's guardian and adoptive mother, Peg, present. History of Present Illness Per medical records dated: Information taken during follow-up appointment at spasticity clinic on 12/13/2023 Contemporary Medical History: Past medical history of Acute respiratory failure ([facility]), Allergic rhinitis, Anoxic brain damage ([facility]), Aspiration, chronic pulmonary, Bowel and bladder incontinence, Cerebral palsy ([facility]), Chronic kidney disease, Chronic osteomyelitis of pelvic region, right ([facility]) (2018), Chronic respiratory failure with hypoxia ([facility]), Constipation, COVID-19 (06/2020), Epilepsy ([facility]),GERD (gastroesophageal reflux disease), MRSA (methicillin resistant Staphylococcus aureus) (04/2016), Muscle spasticity, Nonverbal, PEG (percutaneous endoscopic gastrostomy) status ([facility]), Presence ofintrathecal baclofen pump (1999), Restrictive [...] addition to 3 other high needs individuals. Caodaism, social, or cultural considerations to be made [...] fall in the last 12 months: No Caodaism, social, or cultural considerations to be made [...] visits Duration: 2 weeks Interventions: Therapeutic Exercise (17925), Manual Therapy (89724), Therapeutic/ Functional Activities (99381), Self Care (25464), and Orthotic Management - Initial (61453) Rehab Potential: fair Occupational Therapy Neuro goals: [...] disease Clinical Impression: Claudine Joseph presents to [facility] on 12/28/2023 for an occupational [...] any questions at the above number. Mignon Jordan, OTR/L STATE LICENSE, [id number] documented in this [id number] History of Present illness Narrative* Elodia Bird [...] (anticipate brief plan of care) Desired location: [facility] Education provided: Diagnosis specific education regarding role of therapy No charge for OT screen this date. Will continue to follow at MS clinic and assess for OT related needs. * Ruma Godwin, ACTIVITIES ATTENDANT - 12/13/2023 2:00 PM EDT [facility] Spasticity Clinic: Intrathecal Baclofen [...] infection or skin breakdown. OTHER RELEVANT HISTORY [facility] - 12/13/23 1412 General Change in weight [...] past medical history of Acute respiratory failure ([facility]), Allergic rhinitis, Anoxic brain damage ([facility]), Aspiration, chronic pulmonary, Bowel and bladder incontinence, Cerebral palsy ([facility]), Chronic kidney disease, Chronic osteomyelitis of pelvic region, right ([facility]) (2018), Chronic respiratory failure with hypoxia ([facility]), Constipation, COVID-19 (06/2020), Epilepsy ([facility]), GERD (gastroesophageal reflux disease), MRSA (methicillin resistant Staphylococcus aureus) (04/2016), Muscle spasticity, Nonverbal, PEG (percutaneous endoscopic gastrostomy) status ([facility]), Presence of intrathecal baclofen pump (1999), [...] months) Synchromed I IPump Size: 40 mL [place] Location: 1:30 Catheter Tip Placement: PLAN REGARDING INTRATHECAL BACLOFEN THERAPY First Medication Brand: Baclofen Concentration: 2000 mcg/mL Total Daily Dose: 651 mcg/day 1. Pump Programming: Simple Continuous 2. Pump Robertson Refill: The injection site was prepped sterilely, [...] reservoir refill date: 12/13/23 6. Pump Low Robertson Alarm Date: 04/07/24 7. Claudine Joseph and/or [...] long periods of sitting (long car ride, [employer] meeting) F. Don't get too cool. Cold [...] I also recommend that she keep her [employer] identification card with our clinic contact information at all times. [facility] Team can be reached for emergencies and after hours by calling the [facility] at . PATIENT AND CARE PROVIDER EDUCATION [...] reservoir through the catheter. Using an external operating systems programmer, your treatment team can make adjustments in [...] be arranged to be done by aMedtronic Instrument Calibrator if scheduled during business hours. We recommend [...] savings time after being interrogated by a operating systems programmer. The flex/bolus dosing patient should schedule a [...] BSN, ACNP-BC, CNRN Acute Care Nurse Practitioner [facility] [address], [address] [place] [address] Office [phone] documented in this [id number] History of Present illness Narrative* Stephy Cisse [...] (Valtoco) 15 mg/2 spray (7.5/0.1mL x 2) [place], 7.5 mg by Each Nare route as [...] 01/25/1992 INFLUENZA IIV4 6MO OR > FLUARIX/FLUZONE/AFLURIA 46555 08/01/2016, 11/24/2016, 09/27/2019 IPV 07/02/2003 Influenza Whole [...] disease Chronic osteomyelitis of pelvic region, right ([facility]) 2019 required right ischial debridement, followed by Dr. Noland of plastics Chronic respiratory failure with hypoxia ([facility]) 3 L DE, followed by Dr. Stephy Cisse and Dr. Amalia Terry Constipation COVID-19 06/2020 Epilepsy ([facility]) followed at [facility] neurology clinic GERD (gastroesophageal reflux disease) occasional vomiting with gagging MRSA (methicillin resistant Staphylococcus aureus) 04/2016 Bilateral lungs Muscle spasticity medically refractory and has baclofen pump since 1999, followed at [facility] neuro baclofen pump clinic Nonverbal Answers yes [...] RIGHT ISCHIUM; Surgeon: Rad Luque MD; Location: [facility] Main OR; Service: Orthopedic INSERTION PERCUTANEOUS ENDOSCOPIC GASTROSTOMY TUBE INTRATHECAL PUMP REMOVAL Bilateral 07/15/2022 Procedure: REMOVAL OF RIGHT INTRATHECAL PUMP, CATHETER WITH REPLACEMENT ON LEFT SIDE; Surgeon: Jose Portillo MD; Location: [facility] NEURO OR; Service: Neurological LAMINECTOMY DECOMP THORACIC MULTI LEVEL N/A 07/27/2016 Procedure: T1-2 THORACIC FUSION REVISION ; Surgeon: Kb Ramsey MD; Location: [facility]; Service: REVISION PAIN PUMP N/A 07/27/2016 Procedure: BACLOFEN PUMP REPLACEMENT ; Surgeon: Kb Ramsey MD; Location: [facility]; Service: SALIVARY GLAND SURGERY Family [...] tube MS: Significant scolioss documented in this [id number] History of Present illness Narrative* Celena Fields MD - 11/10/2023 3:00 PM EDT [facility] Toxin Procedure Injection Note 11/10/23 [...] Celena Fields MD Neuroimmunology & Multiple Sclerosis [facility] Clinic documented in this [id number] History of Present illness Narrative* Thea Reyes MA - 09/20/2023 2:23 PM EST I have scanned the fax confirmation into the chart from fax sent to [facility]. documented in this [id number] Instructions* Patient Instructions* Yany Wright CNP - [...] or MyChart the office. documented in this [id number] History of Present illness Narrative* Yany Wright CNP - 09/13/2023 10:59 AM EST NEUROLOGY Office Visit [facility] [address] [place] [address], [address] [place] [address] (office) / [phone] (fax) Patient Name: Claudine Joseph : 1990 MR #: [id number] Date of Neurology Follow-up: 09/13/23 Name of Provider: JONNATHAN Gomez CNP Other Physicians: Marielle Duque MD (Primary Care Physician) Chief Complaint: Follow-up for Seizures (Pt here for follow up. 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 Seizure Risk Factors: Head trauma No LUBE MAN Infections No Stroke/IPH No Family history Unknown Gestational, Delivery, or Developmental Abnormalities Cerebral anoxia at . Febrile seizures Unknown. Prior workup: MRI- was completed but report was not available today EEG- From [facility] 1999 Álvaro, Generalized, Maximum bifrontal, 2001 Intermittent [...] pneumonia Bacteremia Intrathecal pump infection, initial encounter ([facility]) Home Medications: Current Outpatient Medications Medication [...] (Valtoco) 15 mg/2 spray (7.5/0.1mL x 2) [place] 7.5 mg by Each Nare route as [...] a 33 y.o. female with: 1. 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 Intractable symptomatic generalized epilepsy (HCC) lamoTRIgine (LAMICTAL) 150 MG tablet diazePAM (Valtoco) 15 mg/2 spray (7.5/0.1mL x 2) [place] 3. 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HCC) 4. Hypoxia [...] bipap for acute hypercapnia. - Follows with Backend Python Developer. Thanks once again for involving our practice in [facility]'s care. As always, it is a pleasure to participate in the care of your patients, and we remain available to any of your patients who would benefit from timely neurological evaluation. Sincerely, Yany Wright, CADE, ACTIVITIES ATTENDANT, LUBE MAN Epilepsy Clinic and Epilepsy Monitoring Unit Nurse Practitioner [facility] documented in this [id number] Telephone encounter Note* Telephone Encounter - Madisyn Marquez CNP - 08/26/2023 5:04 PM EST Prescription for baclofen for pump refill faxed to [facility], , Called to confirm they received the order. They have the order. [id number] Miscellaneous Notes* Telephone Encounter - Madisyn Marquez CNP - 08/26/2023 5:04 PM EST Prescription for baclofen for pump refill faxed to [facility], , Called to confirm they received the order. They have the order. * Addendum Note - Madisyn Marquez CNP - 08/26/2023 4:24 PM ESTAddended by: WERNER MARQUEZ on: 08/26/2023 04:24 PM Modules accepted: Orders documented in this [id number] Note* Addendum Note - Madisyn Marquez CNP - 08/26/2023 4:24 PM ESTAddended by: WERNER MARQUEZ on: 08/26/2023 04:24 PM Modules accepted: Orders [id number] Note* Addendum Note - Madisyn Marquez CNP - 08/26/2023 4:24 PM ESTAddended by: WERNER MARQUEZ on: 08/26/2023 04:24 PM Modules accepted: Orders [id number] Telephone encounter Note* Telephone Encounter - Adrienne Anderson CMA - 08/20/2023 3:44 PM EST Pt has not been seen in this office since 2020. Please advise. [id number] Miscellaneous Notes* Telephone Encounter - Adrienne Anderson CMA - 08/20/2023 3:44 PM EST Pt has not been seen in this office since 2020. Please advise. documented in this [id number] History of Present illness Narrative* Celena Fields MD - 06/01/2023 1:01 PM EDT [facility] Toxin Procedure Injection Note 06/01/23 [...] few weeks due to lack of child development associate teacher for her other two kids. She really [...] used today has a lot number of [id number] with expiration date . Muscles Injected (R/L): [...] Celena Fields MD Neuroimmunology & Multiple Sclerosis [facility] Clinic documented in this [id number] History of Present illness Narrative* Sunita Mejia [...] Office# Sunita Mejia MD documented in this [id number] History of Present illness Narrative* Celena Fields MD - 02/02/2023 1:30 PM EDT [facility] Toxin Procedure Injection Note 02/02/23 [...] 4. Home health occupational therapy referral to [facility]. Currently gets home health through [facility]. We recommend practicing good spasticity hygiene: - [...] Celena Fields MD Neuroimmunology & Multiple Sclerosis [facility] Clinic documented in this [id number] Telephone encounter Note* Telephone Encounter - Chacorta [...] TUBE twice a day . [id number] - [place], [address] [phone] [id number] Miscellaneous Notes* Telephone Encounter - Chacorta Ansari [...] TUBE twice a day . [id number] [address] [phone] documented in this [id number] History of Present illness Narrative* Celena Fields MD - 12/01/2022 1:30 PM EDT Images from the original note were not included. [facility] Follow Up Note 12/01/2022 Chief Complaint Botox follow up History Claudine oJseph is a 32 year old female with [...] visit. 3. Please sign up for the [employer] patient portal. [employer] provides assess to your medical record and test results, allows you to communicate with your care providers, and allows you to complete patient questionnaires prior to each clinic visit. 4. Many of your testing results can be reviewed online through [employer]. Resources Support and Wellness Opportunities: Support groups, art therapy, music therapy, yoga and more can be found at: [facility] Education and Resource Center at [facility] [email or web address] [place]ille [address] Call [phone] or email [email or web address] [email or web address] I personally spent at least 50 minutes [...] Celena Fields MD Multiple Sclerosis and Neuroimmunology [facility] [address] [place] [address]. [place] [address] Clinic: documented in this [id number] History of Present illness Narrative* Celena Fields MD - 11/03/2022 11:00 AM EST [facility] Toxin Procedure Injection Note 11/03/22 [...] used today has a lot number of [id number] with expiration date . Muscles Injected (R/L): [...] Celena Fields MD Neuroimmunology & Multiple Sclerosis [facility] Clinic documented in this [id number] History of Present illness Narrative* Celena Fields MD - 10/13/2022 10:30 AM EST Images from the original note were not included. SPASTICITY NEW PATIENT CONSULTATION [facility]ULT[facility]OSIS [facility] 10/13/2022 Claudine Joseph is a 32 y.o. year old female who [facility] as a new evaluation for [...] No flowsheet data found. [facility] ROS - 10/13/22 1039 General Change in weight [...] past medical history of Acute respiratory failure ([facility]), Allergic rhinitis, Anoxic brain damage ([facility]), Aspiration, chronic pulmonary, Bowel and bladder incontinence, Cerebral palsy ([facility]), Chronic kidney disease, Chronic osteomyelitis of pelvic region, right ([facility]) (2018), Chronic respiratory failure with hypoxia ([facility]), Constipation, COVID-19 (06/2020), Epilepsy ([facility]), GERD (gastroesophageal reflux disease), MRSA (methicillin resistant Staphylococcus aureus) (04/2016), Muscle spasticity, Nonverbal, PEG (percutaneous endoscopic gastrostomy) status ([facility]), Presence of intrathecal baclofen pump (1999), [...] Celena Fields MD Multiple Sclerosis and Neuroimmunology [facility] I [address] [place] [address] [place] [address] Clinic: documented in this [id number] History of Present illness Narrative* Augusto Moncada MD - 09/22/2022 1:14 PM EST [facility] Spasticity Clinic: Intrathecal Baclofen [...] She is doing. Overall she / her disabilities caregiver reports that her spasticity is under good [...] MS Composite No documentation. [facility] - 09/22/22 1311 General Change in weight [...] past medical history of Acute respiratory failure ([facility]), Allergic rhinitis, Anoxic brain damage ([facility]), Aspiration, chronic pulmonary, Bowel and bladder incontinence, Cerebral palsy ([facility]), Chronic kidney disease, Chronic osteomyelitis of pelvic region, right ([facility]) (2018), Chronic respiratory failure with hypoxia ([facility]), Constipation, COVID-19 (06/2020), Epilepsy ([facility]), GERD (gastroesophageal reflux disease), MRSA (methicillin resistant Staphylococcus aureus) (04/2016), Muscle spasticity, Nonverbal, PEG (percutaneous endoscopic gastrostomy) status ([facility]), Presence of intrathecal baclofen pump (1999), [...] months) Synchromed I IPump Size: 40 mL [place] Location: 1:30 Catheter Tip Placement: PLAN REGARDING INTRATHECAL BACLOFEN THERAPY First Medication Brand: Baclofen Concentration: 2000 mcg/mL Total Daily Dose: 651 mcg/day 1. Pump Programming: Simple Continuous 2. Pump Robertson Refill: Not required today 3. Programming Adjustments today: none today 4. ITB system Procedures today: pump computer interrogation 5. Last reservoir refill date: 07/15/23 6. Pump Low Robertson Alarm Date: 10/23/22 7. Claudine Joseph and/or [...] I also recommend that she keep her [employer] identification card with our clinic contact information at all times. Dr. Marte and Dr. Ngo can be reached for emergencies and after hours by calling the [facility] at PATIENT AND CARE PROVIDER [...] reservoir through the catheter. Using an external operating systems programmer, your treatment team can make adjustments in [...] often be arranged to be done [facility] Calibrator if scheduled during business hours. We recommend [...] savings time after being interrogated by a operating systems programmer. The flex/bolus dosing patient should schedule a [...] questions or concerns. Sincerely, Augusto Moncada MD [facility] Staff Neurologist Neuroimmunology & Multiple Sclerosis [facility] [address] [place] [address]., [address], [place], [place] Clinic 1:14 PM 09/22/22 Voice recognition technology was used to aid in the documentation of this medical record. Some words may not be printed exactly as they were spoken. While efforts were made to carefully edit and correct any inaccuracies, some typographical errors may be present. The provider or the clinic can be contacted if corrections are needed. documented in this [id number] History of Present illness Narrative* Elodia Riojas RN - 08/03/2022 12:03 PM EST Claudine was seen today for an incision check. Both of her incision looked clean, dry and well approximated. Both incision were cleaned with iodine. The left sided sutures was closed with glue. The right sided incision was closed with sutures. All of the sutures were removed. The disabilities caregiver was toldto keep the area clean and dry. documented in this [id number] Telephone encounter Note* Telephone Encounter - Falguni Curry RN - 07/22/2022 5:53 AM EST Could she have an appt with Donna mid July? ITB pump refill appt note: 1st f/u after new pumpplaced [id number] Miscellaneous Notes* Telephone Encounter - Falguni Curry RN - 07/22/2022 5:53 AM EST Could she have an appt with Donna july? ITB pump refill appt note: 1st f/u after new pumpplaced * Telephone Encounter - Falguni Curry RN - 07/15/2022 10:06 AM EST Signed prescription faxed to [facility] [phone], confirmation received. * Telephone Encounter - Falguni Curry RN - 07/15/2022 9:18 AM EST Patient is currently in the ER with exposed ITB pump and elevated CRP/ESR/WBC. Request from [facility] for refills for home ITB fills. documented in this [id number] Note* Plan of Care - BÁRBARA QUICK - 07/21/2022 6:11 PM EST After Visit Summary reviewed with patient and/or family including the signs and symptoms of stroke,when to call 911 for stroke symptoms, medications prescribed on discharge, importance of follow-up appointment with listed providers. Written material provided and questions answered by RN. Patient discharged by power wheelchair to home with guardian/caregiver. [id number] Miscellaneous Notes* Plan of Care - BÁRBARA [...] needed. The patient did not have positive LUBE MAN culture or bacteremia. She has localized pocket infection andit was removed. Recommend 1 week of therapy as above. Levaquin would have been a good option but the chart is reporting allergy to Levaquin. So we need to continue with IV therapy. Please call with any questions. Katja Helm MD, pager # [phone] [facility], office # [phone] * Plan of Care - Brenda De [...] - 07/19/2022 11:06 AM EST Notified by [facility] One teat that patient had L gaze [...] distress and is okay. Called [facility] doctor tension worker and reached out to pharmacy to see if they had any recommendations on wh at to do with the vancomycin. * Quick Note - Nava Renteria RN - 07/16/2022 6:57 PM EST Epidiolex (cannabidol) given to 5 silver TAMMY Dwyer. * Quick Note - Nava [...] pelvic region (2018), and [place]D [place] with c/o baclofen pump being eroded through the abdominal pocket. This was exchanged yesterday 07/15 by neurosurgery. We have been consulted about leakage from PEG site. 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 This was closed by [facility] November 2021 with an [facility] clip and suture. She has a PEG placed at a new site that has been functioning well. On the floor this afternoon nursing staff noticed some leakage at the prior site. Mother reports that since November she has still has some persistent leakage at the priorPEG site. They see a local surgeon in [place] who has been very happy with overall [...] Motherhas been happy with surgical group in [place]. If she has heightened concerns for leakage [...] (32 y.o.) Date of Service: 07/15/2022 CSN: [id number] Procedure(s): REMOVAL OF RIGHT INTRATHECAL PUMP, CATHETER WITH REPLACEMENT ON LEFT SIDE Pre-Operative Diagnoses: * INFECTION OF INTRATHECAL PUMP Post-Operative Diagnoses: * INFECTION OF INTRATHECAL PUMP Surgeon(s) and Role: * Peter Portillo MD - Primary * Kemal Barber DO - Resident - Assisting Anesthesiologist: Mignon Bazan MD; Ernesto Rivera MD Excel Vba Developer: Priyanka Buenrostro RN; Karen Hanson RN Scrub [...] Implant Name Type Inv. Item Serial No. Security System Administrator Lot No. LRB No. Used Action PUMP 40ML PAIN SYNCHROMED II - [id number] Catheter - Implant PUMP 40ML PAIN SYNCHROMED II [id number] [employer]LA[employer] N/A 1 Explanted Intrathecal Catheter Pump Segment Revision Kit [employer] [id number] Implanted PUMP 40ML PAIN SYNCHROMED II - [id number] Catheter - Implant PUMP 40ML PAIN SYNCHROMED II [id number] [employer] ELAINE 1 Implanted Drain(s): Closed/Suction Drain [...] Fresh blood 07/15/221902 Primary Dressing Non adherent 11/16/22 1903 Secondary Dressing Transparent film 07/15/22 1903 Wound 07/15/22 placement of intrathecal baclofen pump Abdomen LLQ (Active) Dressing Status Intact 07/15/221902 Dressing Changed New 07/15/221902 Drainage Amount None 07/15/22 190 Primary Dressing Non adherent 07/15/22 190 Secondary Dressing Transparent film 07/15/22 1903 Wound 07/15/22 LEFT INTRATHECAL BACLOFEN PUMP PLACEMENT Flank Left (Active) Dressing Status Intact 07/15/221902 Dressing Changed New 07/15/221902 Drainage Amount None 07/15/22 190 Primary Dressing Non adherent 07/15/22 1903 Secondary Dressing Transparent film 07/15/22 190 Kemal Barber DO 07/15/2022 7:35 PM * Op Note - Peter Portillo MD - 07/15/2022 4:17 PM EST [facility] PATIENT NAME: Claudine Joseph DATE OF : 1990 CSN: [id number] PHYSICIAN: Peter Portillo MD ADMIT DATE: 07/14/2022 [...] female with spastic cerebral palsy, presented to [facility] after the pump extruded from the right [...] discharge Recall: If questions. documented in this [id number] History of Present illness Narrative* Elodia Riojas RN - 07/21/2022 4:29 PM EST Post op call was unable to be completed as patient was being discharged today. documented in this [id number] Hospital course Narrative* Khadar Yoo MD - 07/21/2022 10:57 AM EST Images from the original note were not included. [facility] Claudine Joseph Account: [id number] Admitted: 07/14/2022 Discharge Date/Time: 07/21/22 10:57 AM Handoff to PCP Routine hospital follow up Clinical Summary Claudine Joseph is a 32 y.o. female with a history of cerebral palsy s/p baclofen pump, quadriplegia, chronic decubitus ulcers, chronic urinary retention with Sage, dysphagia s/p PEG tube,chronic hypoxic respiratory failure on 2-3L NC, epilepsy, CKD who presented to [facility] 07/14/2022 with exposure of a portion of her baclofen pump, now s/p exchange. Course complicated by seizure. Baclofen pump exposure: Exposed baclofen pump through R buttock/hip area. Last revised at [place] with Dr Ramsey (neurosurgry). 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 May repeat as needed. Do not use [...] Valtoco 15 mg/2 spray (7.5/0.1mL x 2) [place] Generic drug: diazePAM Instill 1 spray into [...] medications will be mailed to you From: [facility] [address] alteplase 2 mg injection heparin, porcine (PF) 100 unit/mL Syrg piperacillin-tazobactam IV (Outpatient Therapy) sodium chloride (PF) injection Physician(s) Family: Marielle Duque MD, , Address: [address] [place] [place] [address] [address] [facility] [address] Follow Up: [facility] [address] [place] [address] [facility] [id number] Follow up Schedule post hospital follow up with [facility]: Peter Portillo MD [address] [place] [address] [facility] [address] Follow up The office will call regarding follow up visits. [facility] Address: Servicing Counties: [facility], [facility] [phone] Marielle Duque MD [address] [place], [place] [address] [address] [facility] [id number] Follow up in 1 week(s) Richar Talbert MD [address] [place] [address] [facility] [id number] Follow up call for follow up appointment Additional Information: Patient seen and examined day of discharge. For more information regarding patient's care, including complete radiology reports, please contact [place] [facility] at Patient instructions, including activity, were given to the patient/family at discharge. Please seethe After Visit Summary in the medical record for details. Time spent on discharge: > 30 minutes Completed by: Khadar Yoo on 07/21/22, 10:57 AM documented in this [id number] History of Present illness Narrative* KEKE Simon - 07/21/2022 10:29 AM EST Care Management Progress Note Date: 07/21/2022 Time: 10:29 AM Patient Name: Claudine Joseph Date of : 1990 Discharge Plan: D/C Disposition: Home Health Care Services Related to Current Admission?: Yes Agency/Destination: [facility] Home Care Options Reviewed: Explained services/benefits Reason for Choice: Patient/Family preference, Currently with agency Discharging Transportation Plan: Transportation Type: Auto Discharge Plan Status: [facility] following for dc planning. Per most recent hub note, [facility] Neville/JUDI confirmed SOC for Wednesday morning. Attending requested PUNCHBOARD INSERTER reach out to guardian to inquire if guardian can transport after 9pm tonight. PUNCHBOARD INSERTER contacted guardian Peg, who states she can be at [facility] this evening to transport, would prefer to be present when dc paperwork is reviewed. PUNCHBOARD INSERTER notified attending that guardian will transport. * Abbey Rivera RN - 07/21/2022 8:30 AM EST Care Management Progress Note Date: 07/21/2022 Time: 8:30 AM Patient Name: Claudine Joseph Date of : 1990 Discharge Plan: D/C Disposition: Home Health Care Services Related to Current Admission?: Yes Agency/Destination: [facility] Home Care Options Reviewed: Explained services/benefits Reason for Choice: Patient/Family preference, Currently with agency Discharging Transportation Plan: Transportation Type: Auto Discharge Plan Status: [facility]/JUDI confirmed a start of care for Wednesday for homehealth care/IV antibiotics. * Khadar Yoo MD - 07/21/2022 7:38 AM EST [facility]21[facility] Claudine Joseph 1990 [id number] Assessment/Plan: Claudine Joseph is a 32 y.o. female with a history of cerebral palsy s/p baclofen pump, quadriplegia, chronic decubitus ulcers, chronic urinary retention with Sage, dysphagia s/p PEG tube,chronic hypoxic respiratory failure on 2-3L NC, epilepsy, CKD who presented to [facility] 07/14/2022 with exposure of a portion of her baclofen pump. Course complicated by seizure. Baclofen pump exposure: Exposed baclofen pump through R buttock/hip area. Last revised at [facility] with Dr Ramsey (neurosurgry). S/p pump exchanged [...] Valium. Neuro recommended to continue home AEDs Dlgec-wv-pnnpmyy hypotension: Occurred post-op, on Levophed as of [...] impairment as evidenced by the need for custodial alternate method of nutrition- Not Resolved Nutrition [...] clinical information per physician notes: presented to [facility] on 07/14/2022 with spasticity and baclofen [...] Function: Active, LBM 07/19/22 Labs: Recent Labs 07/19/22 0522 NA 140 K 3.9 BICARB 27 CL [...] 11:00 AM EST Neurology Inpatient Progress note [facility] 07/20/2022 Amalia Sexton CNP [facility] Patient: Claudine Joseph Date of : [...] Talbert after discharge. [facility]. No additional recommendations, will sign off. 07/20/2022 3:13 PM ASSESSMENT: 32 y.o. female with history of anoxic brain injury, cerebral palsy, chronic kidney disease, epilepsy, spasticity with a baclofen pump presented to [facility] on 07/14/2022 with spasticity and baclofen [...] half of that time was spent on ykxt-vd-vjqc counseling and/or coordination of care. Covering neurologist [...] comfort Spontaneous movements of both hands/wrists. * KEKE Simon - 07/20/2022 8:58 AM EST Care Management Progress Note Date: 07/20/2022 Time: 8:58 AM Patient Name: Claudine Joseph Date of : 1990 Discharge Plan: D/C Disposition: Home Agency/Destination: Home Options Reviewed: Explained services/benefits Reason for Choice: Patient/Family preference, Currently with agency Discharging Transportation Plan: Transportation Type: Auto Discharge Plan Status: [facility] following for dc planning. Per chart review, pt is current with [facility] 86 hrs/week and [employer] for TF via PEG. TF order, insurance forms and nut culler note were faxed to [facility] on 07/18/22. Per last CC note, guardian has a supply of Promote tube feeding at home already, guardian will transport at nc. PUNCHBOARD INSERTER attempted to contact [facility] liaison Ivana at [phone], left message requesting call back to confirm that fax was received over weekend. [facility] will continue to follow. ADD 9:32am Call back from Ivana stating that fax was received, [facility] has all necessary information. Ivana inquired if pt could be sent home with a small supply of Promote should UPS delivery be delayed d/t holiday. PUNCHBOARD INSERTER notified that guardian has a supply at home. PUNCHBOARD INSERTER provided SHARON, will notify if pt dc's today. ADD 11:33am This pt was discussed during MDRs, will need IV abx until 07/23/22. [facility] c/s, notified that pt is current with [employer] [facility]. Per last ID note, plan to continue IV Zosyn. Plan to dc with Midline. ADD 3:28pm Message from RN, pt received Midline and will dc after 6pm dose. JUDI Neville accepted for IV abx. DC milestones completed. ADD 3:40pm PUNCHBOARD INSERTER contacted guardian Peg ([phone]), notified that pt is ready to dc after 6pm IV abx dose.Peg is agreeable to [place] for IV abx, PUNCHBOARD INSERTER notified that [facility] will reach out tomorrow. PUNCHBOARD INSERTER informedthat TF's are set up through [facility]. Peg has no questions at this time, is on her way to [facility]. ADD 3:58pm PUNCHBOARD INSERTER notified that pt does not have veins to accommodate a Midline, AccuCath placed in upper arm. [facility] liaison updated. * Khadar Baby MD Naila - 07/20/2022 7:49 AM EST [facility] Inpatient Progress Note 07/20/2022 Claudine Joseph 1990 [id number] Assessment/Plan: Claudine Joseph is a 32 y.o. female with a history of cerebral palsy s/p baclofen pump, quadriplegia, chronic decubitus ulcers, chronic urinary retention with Sage, dysphagia s/p PEG tube,chronic hypoxic respiratory failure on 2-3L NC, epilepsy, CKD who presented to [facility] 07/14/2022 with exposure of a portion of her baclofen pump. Course complicated by seizure. Baclofen pump exposure: Exposed baclofen pump through R buttock/hip area. Last revised at [place] with Dr Ramsey (neurosurgry). S/p pump exchanged [...] Valium. Neuro recommended to continue home AEDs Fqhtv-ia-rysivkn hypotension: Occurred post-op, on Levophed as of [...] Plan: Transportation Type: Auto Discharge Plan Status: PUNCHBOARD INSERTER notified that pt's guardian Peg is at bedside and requesting to discuss discharge plans. PUNCHBOARD INSERTER reviewed chart, met with Peg. Provided update regarding tube feeding supplyfrom [facility]. Peg states that she has multiple people that she care for at home and at some pointthe pt's tube feed order was mixed up with another person's. However, pt was on Promote tube feeding prior to admission and they have a supply of it at home already. [facility] to review the tube feed needs for each of them and get it straightened out. Peg is able to transport pt home in her wheelchair in an accessible vehicle that was custom made for her. Pt's portable o2 is already with her wheelchair in the room. Peg states that she is ready to take pt home as soon as physician releases her. PUNCHBOARD INSERTER can call [facility] tomorrow to follow up, however, should not need towt for a delivery of Promote since they have it at home now. [facility] will continue to follow. * Deanna Chambers DO - 07/19/2022 7:26 AM EST [facility] 07/19/2022 Claudine Joseph 1990 [id number] Assessment/Plan: Claudine Joseph is a 32 y.o. female with a history of cerebral palsy s/p baclofen pump, quadriplegia, chronic decubitus ulcers, chronic urinary retention with Sage, dysphagia s/p PEG tube,chronic hypoxic respiratory failure on 2-3L NC, epilepsy, CKD who presented to [facility] 07/14/2022 with exposure of a portion of her baclofen pump. Course complicated by seizure. Baclofen pump exposure: Exposed baclofen pump through R buttock/hip area. Last revised at [facility] with Dr Ramsey (neurosurgry). S/p pump exchanged 07/15/22. Would Cx with pseudamonas and Srep agalactiae. Tissue Cx with Strep agalactiae On Vancomycin and Zoxyn but developed concerns for samra iapbgsmy12/17/22. Vancomycin changed to Linezolid. ID following, agreed with IV Zosyn and Linezolid. Epilepsy with breakthrough seizure: Home meds Lamictal, Keppra, cannabidiol continued. Has PRN benzos at home, ordered. Seizure 07/19/22 and given Valium. Neuro consulted. Ftyin-nk-ttwcowx hypotension: Occurred post-op, on Levophed as of [...] Claudine Joseph Encounter date: 07/18/22 MR #: [id number] Assessment/Plan: S/P percutaneous endoscopic gastrostomy (PEG) tube placement (HCC) Assessment & Plan Ms. Claudine Joseph is a 32 y.o. female with a past medical history of anoxic brain damage, spastic CP and quadriplegia s/p baclofen pump, epilepsy, neurogenic bladder with chronic sage, dysphagia with chronic PEG, osteomyelitis of pelvic region (2018), and GERD who presented to [place] 07/14/2022 with c/o baclofen pump being eroded through the abdominal pocket. This was exchanged 07/15 by neurosurgery. We have been consulted about leakage from PEG site. 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 This was closed by [facility] November 2021 with an OTS clip and suture. She has a PEG placed at a new site that has been functioning well. Leakage was noted at prior fistula site. Mother reports that since November she has still has some persistent leakage at the prior PEG site. They see a local surgeon in [place] who has been very happy with overall [...] feed, two required forms for insurance and nut culler note to [facility]. Agency unable to place order until Wednesday for possible delivery to patients home on Wednesday. [facility] fax [phone]. * Deanna Chambers DO - 07/18/2022 7:32 AM EST [facility] Inpatient Progress Note 07/18/2022 Claudine Joseph 1990 [id number] Assessment/Plan: Claudine Joseph is a 32 y.o. female with a history of cerebral palsy s/p baclofen pump, quadriplegia, chronic decubitus ulcers, chronic urinary retention with Sage, dysphagia s/p PEG tube,chronic hypoxic respiratory failure on 2-3L NC, epilepsy, CKD who presented to [facility] 07/14/2022 with exposure of a portion of her baclofen pump. Baclofen pump exposure: Exposed baclofen pump through R buttock/hip area. Last revised at [facility] with Dr Ramsey (neurosurgry). S/p pump exchanged 07/15/22. Would Cx with pseudamonas and Srep agalactiae. Tissue Cx with Strep agalactiae On Vancomycin and Zoxyn but developed concerns for samra htduxgyp32/17/22. Vancomycin changed to Linezolid. ID following, agreed with IV Zosyn and Linezolid. Hftuz-ul-atnanex hypotension: Occurred post-op, on Levophed as of [...] in Direct Patient Care: 75 Narrative: This hollow tile partition erector engaged family and provided emotional/spiritual care and support in accordance with their traditions and norms. Seam Feller informed family of the on-going availability of pastoral care resources. Pastoral Care team will remain available to support patient and family PRN. Patients Response to Pastoral Care: Other (see comment) (Visit with Pt mother. Pt has cerebral palsy.) Planning for Future Visits: PRN, Pt aware to contact Seam Feller as needed Patient's Spiritual Needs Assessment Sources of Connection Daughter, Son Beliefs and Practices Attends Caodaism Services, Experience of [place], Prayer Image [...] and Connection Facilitated Interventions Active Listening, Affirmation, [place], Explained Role of the Seam Feller, Explored thoughts/feelings associated with current hospitalization, Prayer, Self-Care, Use of Storytelling Spiritual and Emotional Outcomes Encouraged, Gratitude, Spiritual Comfort, Story shared or processed, Reduction in Distress, Angelia Strengthened, Appreciative Resources Provided Bereavement Resources Spiritual Plan of Care Patient's Caodaism Needs Assessment Caodaism Connection Caodaism Home Church Affiliation Local Mandaeism Name Caodaism Resources Caodaism Rituals Caodaism Materials Provided Expressed Outcomes Family / Caregiver Needs Assessment Relationship to Patient Mother Affect at Time of Visit Cooperative, Calm, Interactive, Supportive, Talkative Emotions Expressed During Visit Encouraged, Other (see comments) (Enthusiastic) Expressed Concerns Regarding Illness Coping with Illness, Discerning Patient's Wishes, Emotional/Spiritual Fatigue, Patient's Diagnosis Sources of Hope and Strength Spiritual/Caodaism Practices Support and Participation in Care Active Grief Assessment Accepting, Appropriately Coping Spiritual Assessment Aware of Patient's Mortality Interventions with Family / Friend Aware of Patient's Mortality Outcomes with Family / Friend Affirmation, Seam Feller Support, Empathic Listening, Explored emotionalneeds & resources, Explored Relational Needs & Resources, Facilitated Story-Telling, Provided Comfort, Provided Emotional Support, Provided Prayer, Provided Spiritual Support Genaro Frausto MA, MBA Staff Seam Feller, Pastoral Care [facility] [phone] * WAQAS SalmonW - 07/17/2022 1:41 PM EST Care Management Progress Note Date: 07/17/2022 Time: 1:41 PM Patient Name: Claudine Joseph Date of : 1990 Discharge Plan Status: PUNCHBOARD INSERTER called and LVM w/ pt's mother/guardian, Peg, requesting call back. PUNCHBOARD INSERTER by pt's room several times throughout the workday, no visitors at bedside. Per chart review, in 2020 a social science teacher through [facility] was listed asa reference. PUNCHBOARD INSERTER called Rhonda (ph: [phone]) requesting call back to determine if she is still working w/ pt. Per chart review, in 2019 pt was [facility] w/ [facility] and [facility]. PUNCHBOARD INSERTER called [facility], pt is no longer current w/ their agency. [facility] no longer provides homeTF services. PUNCHBOARD INSERTER attempted to call pt's PCP, but office is closed. Charge and bedside RN aware to notify PUNCHBOARD INSERTER if they notice visitors at bedside. Will continue to follow. Addendum 3:02pm PUNCHBOARD INSERTER attempted to call Peg for second time without success. No visitors at bedside. Contact located in [facility] records for pt's sister (Charissa Chan, ph: [phone]). PUNCHBOARD INSERTER called and LVM requesting call back. PUNCHBOARD INSERTER also called [facility] and [facility] and pt is not current. PUNCHBOARD INSERTER called and LVM w/ [facility] inquiring if pt is current w/ services. Addendum 3:50pm PUNCHBOARD INSERTER into see ptPeg at bedside. Peg confirmed pt has all needed DME. Peg will provide transportation upon discharge. Pt current w/ [facility] for 86hrs/week (Vic campbell, ph: [phone]). Pt current w/ [facility] for home Tfs. PUNCHBOARD INSERTER called [facility] (ph: [phone], f: [phone]). Prior to admission, pt was current w/ Ensure Plus, 1400 larry/day. Current diet order is Promote @ goal of 45 ml/hr to provide 1080kcal, 68g protein, 906ml h2O. PUNCHBOARD INSERTER confirmed w/ hospitalist that this will be what pt will discharge on. Abe explained they do not have Promote formula in-stock and the agency is unable to place orderuntil Wednesday for possible delivery to pt's home on Wednesday. Will need home tube feed order placed, signed by hospitalist, and faxed to [phone]. Abe also faxing form that needs signed by hospitalist and returned w/ TF order for insurance purposes. Addendum 4:07pm Peg confirmed pt is linked w/ MARGARITA, Rhonda Johnston w/ the [facility] [employer] (ph: [phone]). * Elodia Altamirano PA-C - 07/17/2022 12:17 PM EST GASTROENTEROLOGY/HEPATOLOGY DAILY PROGRESS NOTE 1 Patient Name: Claudine Joseph Encounter date: 07/17/22 MR #: [id number] Assessment/Plan: S/P percutaneous endoscopic gastrostomy (PEG) tube placement (HCC) Assessment & Plan Ms. Claudine Joseph is a 32 y.o. female with a past medical history of anoxic brain damage, spastic CP and quadriplegia s/p baclofen pump, epilepsy, neurogenic bladder with chronic sage, dysphagia with chronic PEG, osteomyelitis of pelvic region (2018), and GERD who presented to [place] 07/14/2022 with c/o baclofen pump being eroded through the abdominal pocket. This was exchanged by neurosurgery. We have been consulted about leakage from PEG site. 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 This was closed by [facility] November 2021 with an [facility] clip and suture. She has a PEG placed at a new site that has been functioning well. Leakage was noted at prior fistula site. Mother reports that since November she has still has some persistent leakage at the prior PEG site. They see a local surgeon in [place] who has been very happy with overall [...] Chambers DO - 07/17/2022 7:13 AM EST [facility] Inpatient Progress Note 07/17/2022 Claudine Wren Jake 1990 [id number] Assessment/Plan: Claudine Joseph is a 32 y.o. female with a history of cerebral palsy s/p baclofen pump, quadriplegia, chronic decubitus ulcers, chronic urinary retention with Sage, dysphagia s/p PEG tube,chronic hypoxic respiratory failure on 2-3L NC, epilepsy, CKD who presented to [facility] 07/14/2022 with exposure of a portion of her baclofen pump. Baclofen pump exposure: Exposed baclofen pump through R buttock/hip area. Last revised at [facility] with Dr Ramsey (neurosurgry). S/p pump exchanged 07/15/22. Would Cx with pseudamonas and Srep agalactiae. Tissue Cx with Strep agalactiae On Vancomycin and Zoxyn but developed concerns for samra bnsdelor33/17/22. Vancomycin changed to Linezolid. ID following, agreed with IV Zosyn and Linezolid. Uxqiz-sp-rycekjp hypotension: Occurred post-op, on Levophed as of [...] Unchd 07/16/22 1200 Site Assessment Clean;Dry;Intact 07/16/22 08 Proximal Lumen Status Blood return noted 07/16/22 0800 Medial 1 Lumen Status Blood return noted 07/16/22 08 Distal Lumen Status Blood return noted 07/16/22 08 Line Intervention Flushed;Cap changed 07/16/22799 Dressing Type Transparent 07/16/22 08 Dressing Status Clean;Dry;Intact 07/16/22 08 Line Necessity Reviewed? Y 07/16/22799 Line Necessity Yes, meets criteria 07/16/22799 Line Necessity Reviewed With NCC 07/16/22799 Number of days: 0 Assessment / Plan [...] Location:Buttock;Gluteal fold Wound Location Orientation: Right DRESSING: MANAGER WAREHOUSE Dressing Status Open to air Drainage Amount None Odor None Wound Bed Characteristics Fragile;Red Makenzie-wound Assessment Moist Treatments Skin barrier cream/paste Cleansed Soap and water RN notified of assessment and plan. Yoly Tenorio RN * RUTH Rodriguez - 07/16/2022 10:34 AM EST Care Management [...] the Facesheet without success. The first number ([phone]) immediately went to [place] and message was left with purpose of call and asking for a callback. The second number ([phone]), a woman answered and said that PUNCHBOARD INSERTER had the wrong number. Chart review will be used for this note's information. Pt presented to [facility] with mother for concerns regarding baclofen pump infection. Pt's prior medical history includes: anoxic brain injury, cerebral palsy, quadriplegia, chronic decubitus ulcers, chronic urinary retention with Sage, dysphagia s/p PEG tube, chronic hypoxic respiratory failure on 2-3LNC, CKD, and epilepsy. Note from ED CM from 09/09/2021 indicates pt uses [facility] (f: [phone]) or home medications. At that time, the pt's primary caregiver/mother/Guardian Peg was very comfortable with administering her OPAT medications. Also by hx (09/23/2020), pt has a hx of wound vac for decubitus ulcers. Phone call to pt's PCP, Marielle Duque MD with [facility] ([phone]) and message left with Nurse's Line in [...] Faria MD - 07/16/2022 8:00 AM EST [facility] Inpatient Progress Note 07/16/2022 Claudine Joseph 1990 [id number] Assessment/Plan: Claudine Joseph is a 32 y.o. female with a history of cerebral palsy s/p baclofen pump, quadriplegia, chronic decubitus ulcers, chronic urinary retention with Sage, dysphagia s/p PEG tube,chronic hypoxic respiratory failure on 2-3L NC, epilepsy, CKD who presented to [facility] 07/14/2022 with exposure of a portion of her baclofen pump. Baclofen pump exposure: Exposed baclofen pump through R buttock/hip area. No obvious signs of infection or drainage. Last revised at [place] with Dr Ramsey (neurosurgry). Neurosurgery following, pump exchanged 07/15/22. Monitoring for baclofen withdrawal symptoms. Continued empiric vancomycin. Follow-up intra-op cultures, so far negative Gram stain. Hkxtq-qi-rxsocev hypotension: Occurred post-op, on Levophed as of [...] portion. Pump changed out yesterday, admitted to [facility] overnight to monitor for baclofen withdrawal. Hypotensive this AM, sent for CT A/P to r/o abscess, bleed. Images personally reviewed, no obvious abscess, no obvious IP bleed, bladder wall thickening. Started on Levophed per NCC. Off Levophed by the time Isaw her [...] - p S: Seen and examined in ncc O: Current: BP 99/70 Pulse 98 Temp [...] but spastic BUE MA 2 * Naz MartínezPh. - 07/15/2022 9:31 PM EST PHARMACOTHERAPY NOTE: Antimicrobial Therapy Initiation Assessment / Plan: Claudine Joseph is a 32 y.o. female initiated on antimicrobial therapy for LUBE MAN infection ( post neurosurgery). Patient initiated on [...] 07/15/22 33.8 kg (74 lb 8.3 oz) Dudley body weight: 40.9 kg (90 lb 1.1 oz) Labs include: WBC (K/mcL) Date Value 07/15/2022 12.17 (H) 04/22/2017 11.6 (H) Creatinine (mg/dL) Date Value 07/15/2022 0.29 (L) 04/22/2017 0.44 Estimated Creatinine Clearance: 148.6 mL/min (A) (by C-G formula based on SCr of 0.29 mg/dL (L)). Patient Tmax (last 24 hours): 98.9 F . Micro: Procedure Component Value Units Date/Time Tissue Aerobic Culture [[id number]] Collected: 07/15/221640 Order Status: Sent Specimen: Tissue from Abdominal Wall Updated: 07/15/222037 Tissue AFB Culture [[id number]] Collected: 07/15/221640 Order Status: Sent Specimen: Tissue from Abdominal Wall Updated: 07/15/222037 Tissue Anaerobic Culture [[id number]] Collected: 07/15/221640 Order Status: Sent Specimen: Tissue from Abdominal Wall Updated: 07/15/222037 Tissue Fungus Culture [[id number]] Collected: 07/15/221640 Order Status: Sent Specimen: Tissue from Abdominal Wall Updated: 07/15/222036 Wound Aerobic Culture [[id number]] Collected: 07/15/221639 Order Status: Sent Specimen: Swab from Abdominal Wall Updated: 07/15/222035 Wound AFB Culture [[id number]] Collected: 07/15/221639 Order Status: Sent Specimen: Swab from Abdominal Wall Updated: 07/15/222035 Wound Anaerobic Culture [[id number]] Collected: 07/15/221639 Order Status: Sent Specimen: Swab from Abdominal Wall Updated: 07/15/222035 Wound Fungus Culture [[id number]] Collected: 07/15/221639 Order Status: Sent Specimen: Swab from Abdominal Wall Updated: 07/15/222035 CSF AFB Culture [[id number]] Collected: 07/15/221625 Order Status: Sent Specimen: CSF Updated: 07/15/221749 CSF Anaerobic Culture [[id number]] Collected: 07/15/221625 Order Status: Sent Specimen: CSF Updated: 07/15/221749 CSF Fungus Culture [[id number]] Collected: 07/15/221625 Order Status: Sent Specimen: CSF Updated: 07/15/221748 CSF Aerobic Culture (Shunt or Drain Only) [[id number]] Collected: 07/15/221625 Order Status: Completed Specimen: CSF Updated: 07/15/22 190 Gram Stain Result No Organisms Seen Many RBC No WBC Seen Pharmacist: Cailin Mazariegos R.Ph. Contact Number: Vocera * Stone Faria MD - 07/15/2022 7:07 AM EST [facility] Claudine Joseph 1990 [id number] Assessment/Plan: Claudine Joseph is a 32 y.o. female with a history of cerebral palsy s/p baclofen pump, quadriplegia, chronic decubitus ulcers, chronic urinary retention with Sage, dysphagia s/p PEG tube,chronic hypoxic respiratory failure on 2-3L NC, epilepsy, CKD who presented to [facility] 07/14/2022 with exposure of a portion of her baclofen pump. Baclofen pump failure: Exposed baclofen pump R buttock/hip area. No obvious signs of infection or drainage. Last revised at [place] with Dr Ramsey (neurosurgry). Neurosurgery following. Cerebral [...] 100* CALCIUM mg/dL 9.7 documented in this [id number] Note* Plan of Care - Brenda De [...] of comfort function goal Outcome: Partially Met [id number] Consult note* Beny Tidwell RN - 07/20/2022 [...] Good blood return. Patient tolerated insertion well. [id number] Consult note* Beny Tidwell RN - 07/20/2022 [...] Services Related to Current Admission?: Yes Agency/Destination: [facility] Home Care Options Reviewed: Explained services/benefits Reason [...] OPAT. Please other [facility] note from today. * Abbey Rivera RN - 07/20/2022 1:54 PM ESTAssociated Order(s): IP CONSULT TO [facility] agency: Accepted or Pending Name of agency: (if [place], include region) [facility] accepted Infusion pharmacy: (name) Referral ending or accepted? For OPAT, TPN, or TF: (list) Has script been sent? (Yes/no) OHIP- received referral for IV antibiotics at discharge. Message sent to infusion team. Will wait benefits from PAS. HH & IV ATB- [place] MEDICAID COVERAGE 100% Medication / frequency Zosyn 3.375 g IV Q 8 hours Line / tube [facility] created for the following services: [or waiting for ____ (i.e wound care)] SN/IP Verify the demographics (residential address) [address] [address] What is the primary number to reach you? [phone] Who is your family physician/primary care physician? Marielle Duque MD Following physician will be: (list first name/last name) Katja Helm MD following for OPAT Do you have a caregiver and/or teachable caregiver (list relationship, name & phone #)? Patient's mother Has the patient been added to capacity board/tracking sheet? ([place] only) Added to [facility] tracking sheet Estimated Discharge Date (SHARON): 07/20/2022 If discharge needs change, please reach out to liaison assigned on treatment team as hub is not notified of new consults once team is following. Thank you. * Hayden Velazquez DO - 07/19/2022 11:30 AM ESTAssociated Order(s): IP CONSULT TO NEUROLOGY Neurology Inpatient Consult [facility] 07/19/2022 Hayden Velazquez DO [facility] Patient: Claudine Joseph Date of : 1990 (32 y.o. female) Referring Provider: Refer to consult order in electronic medical record PCP: Marielle Duque MD ASSESSMENT: 32 y.o. female with history of anoxic brain injury, cerebral palsy, chronic kidney disease, epilepsy, spasticity with a baclofen pump presented to [facility] on 07/14/2022 with spasticity and baclofen [...] half of that time was spent on vtbl-jq-brop counseling and/or coordination of care. DIAGNOSTIC TESTING [...] disease Chronic osteomyelitis of pelvic region, right ([facility]) 2019 required right ischial debridement, followed by Dr. Noland of plastics Chronic respiratory failure with hypoxia ([facility]) 3 L NC, followed by Dr. Stephy Cisse and Dr. Amalia Terry Constipation COVID-19 06/2020 Epilepsy ([facility]) followed at [facility] neurology clinic GERD (gastroesophageal reflux disease) occasional vomiting with gagging MRSA (methicillin resistant Staphylococcus aureus) 04/2016 Bilateral lungs Muscle spasticity medically refractory and has baclofen pump since 1999, followed at [facility] neuro baclofen pump clinic Nonverbal Answers yes [...] RIGHT ISCHIUM; Surgeon: Rad Luque MD; Location: [facility] Main OR; Service: Orthopedic INSERTION PERCUTANEOUS ENDOSCOPIC GASTROSTOMY TUBE INTRATHECAL PUMP REMOVAL Bilateral 07/15/2022 Procedure: REMOVAL OF RIGHT INTRATHECAL PUMP, CATHETER WITH REPLACEMENT ON LEFT SIDE; Surgeon: Jose Portillo MD; Location: [facility] NEURO OR; Service: Neurological LAMINECTOMY DECOMP THORACIC MULTI LEVEL N/A 07/27/2016 Procedure: T1-2 THORACIC FUSION REVISION ; Surgeon: Kb Ramsey MD; [place] [facility] [place]; Service: REVISION PAIN PUMP N/A 07/27/2016 Procedure: BACLOFEN PUMP REPLACEMENT ; Surgeon: Kb Ramsey MD; Location: [facility] [place]; Service: SALIVARY GLAND SURGERY Social [...] (Valtoco) 15 mg/2 spray (7.5/0.1mL x 2) [place] Instill 1 spray into each nostril as [...] sodium chloride (PF) 5 mL Intravenous Q8H [facility] PRN Medications: acetaminophen, diazepam, [...] & GROSS MOTOR: Abnormal Movements: None Coordination Rbvldg-oo-Hbjw: DNFC Coordination: Wlxo-Wlxa-Jmvt:DNFC Rapid Alternating Movements: DNFC Drift: None Tone: increased throughout Bulk: decreased throughout MOTOR - MUSCLE STRENGTH: Pt contracted of all 4 limbs, did not apply painful stimulus for patient comfort REFLEXES: deferred SENSATION: No response to light touch Hayden Velazquez D.O., ABPN Vascular Neurologist [facility] * Karen Murray MD - 07/17/2022 8:24 AM ESTAssociated Order(s): IP CONSULT TO INFECTIOUS DISEASES Resident Consult Note Patient Name: Claudine Joseph : 1990 Admit Date: 11141001 Assessment and Plan Patient is a 32 y.o. female with a past medical history significant for cerebral palsy s/p baclofenpump, quadriplegia, chronic urinary retention with sage, dysphagia s/p PEG tube, epilepsy, who presented to [facility] 07/14/2022 for exposed baclofen pump. ID consulted [...] finalized until attested by Attending Physician Karen Murray MD Internal Medicine PGY-3 Pager: [phone] Chief Complaint: exposed baclofen pump History of Present Illness Claudine Joseph is a 32 y.o. female with pmh of cerebral palsy, anoxic brain injury, uadriplegia, chronic urinary retention with sage, dysphagia s/p PEG tube, epilepsy, who presented to [facility] 07/14/2022 for exposed baclofen pump. ID consulted [...] Medical History: Diagnosis Date Acute respiratory failure ([facility]) Due to MRSA pneumonia 04/2016; Allergic rhinitis Anoxic brain damage ([facility]) Aspiration, chronic pulmonary Bowel and bladder incontinence Cerebral palsy ([facility]) Chronic kidney disease Chronic osteomyelitis of pelvic region, right ([facility]) 2018 required right ischial debridement, followed by Dr. Noland of plastics Chronic respiratory failure with hypoxia ([facility]) 3 L NC, followed by Dr. Stephy Cisse and Dr. Amalia Terry Constipation COVID-19 06/2020 Epilepsy ([facility]) followed at [facility] neurology clinic GERD (gastroesophageal reflux disease) occasional vomiting with gagging MRSA (methicillin resistant Staphylococcus aureus) 04/2016 Bilateral lungs Muscle spasticity medically refractory and has baclofen pump since 1999, followed at [facility] neuro baclofen pump clinic Nonverbal Answers yes with very long blinks per adoptive parent PEG (percutaneous endoscopic gastrostomy) status ([facility]) Presence of intrathecal baclofen pump 1999 [...] RIGHT ISCHIUM; Surgeon: Rad Luque MD; Location: [facility] Main OR; Service: Orthopedic INSERTION PERCUTANEOUS ENDOSCOPIC GASTROSTOMY TUBE INTRATHECAL PUMP REMOVAL Bilateral 07/15/2022 Procedure: REMOVAL OF RIGHT INTRATHECAL PUMP, CATHETER WITH REPLACEMENT ON LEFT SIDE; Surgeon: Jose Portillo MD; Location: [facility] NEURO OR; Service: Neurological LAMINECTOMY DECOMP THORACIC MULTI LEVEL N/A 07/27/2016 Procedure: T1-2 THORACIC FUSION REVISION ; Surgeon: Kb Ramsey MD; [place] [facility] [place]; Service: REVISION PAIN PUMP N/A 07/27/2016 Procedure: BACLOFEN PUMP REPLACEMENT ; Surgeon: Kb Ramsey MD; Location: [facility] [place]; Service: SALIVARY GLAND SURGERY Family [...] was seen, examined, & discussed with our director medical affairs. I agree with the outlined history, examination, [...] with questions. Katja Helm MD, pager # [phone] [facility], office # [phone] * Zeke Turk CNP - 07/16/2022 2:31 PM EST Neurocritical Care Transfer Note Claudine Joseph is a 32 y.o. 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 The patient has scoliosiswhich causes her to lay on her right side, where the baclofen pump was located. She arrives to [facility] on POD 0 s/p removal of right [...] all meds and TFs. - Presents to [facility] ED on 07/14/22 with c/o baclofen pump [...] pocket does not close appropriately. - To [facility] on POD 1 s/p removal of right [...] GI. Bowel regimen: continue miralax. 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 PROPHYLAXIS - Continue home PPI. - SCDs, consider chemoprophylaxis 07/16. PT/OT: Ok for therapy. SW: Consulted. SHARON: TBD. CODE STATUS / FAMILY - Full Code, discussed with patients adoptive mother, Peg Joseph. Plan discussed with NCC attending Dr. Magdaleno. [facility] to be the accepting service upon transfer from [facility]. Zeke Turk CNP Neurocritical Care Subjective / [...] by GI. No further critical care needs, [facility] consulted, ok for transfer from [facility]. Review of Systems: [] CV, Resp, GI, [...] Drains:10; Blood:100] Exam taken upon arrival to [facility]. General: Eyes open. Does not appear to [...] imaging reviewed. No results for input(s): PHART, HOS8UZG, PO2ART, I7QTFRKD, RESPRATE, TIDALVOL, PEEP, H1RDXXSL in the last 72 hours. Recent Labs 07/15/22 0331 07/16/22 0710 WBC 12.17* 10.14 HGB 14.3 10.3* PLT 278 190 Recent Labs 07/15/2233007/16/22 0632 NA 138 142 K 4.2 3.4* [...] assessment and plan of care with the [facility]. The [facility] completed the initial history taking [...] DS, FN Neurocritical Care 07/16/22 6:10 PM * Marcelino Rocha MD - 07/16/2022 2:08 PM ESTAssociated Order(s): IP CONSULT TO GASTROENTEROLOGY GASTROENTEROLOGY/HEPATOLOGY CONSULT NOTE 4 Patient Name: Claudine Joseph Admit Date: [id number] Date of Consult: 07/16/22 MR #: [id number] : 1990 Physicians: Marielle Duque MD (Family); [...] pelvic region (2018), and GERD who presentedto [place] 07/14/2022 with c/o baclofen pump being eroded through the abdominal pocket. This was exchanged yesterday 07/15 by neurosurgery. We have been consulted about leakage from PEG site. 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 This was closed by [facility] November 2021 with an OTSC clip and suture. She has a PEG placed at a new site that has been functioning well. On the floor this afternoon nursing staff noticed some leakage at the prior site. Mother reports that since November she has still has some persistent leakage at the priorPEG site. They see a local surgeon in [place] who has been very happy with overall [...] Current PEG has otherwise functioned without concern. Maricruz been happy with surgical group in [place]. If she has heightened concerns for leakage [...] region (2018), and GERD who presented to [place] 07/14/2022 with c/o baclofen pump being eroded [...] over a decade. In November 2021 at [facility] she had an EGD for [facility] closure of fistula. The examined esophagus [...] blood loss was minimal. A suture and xgpc-mtf-tfoac-clip was found in the gastric body at the site of the prior PEG tube. There was no persistent fistula seen. The examinedduodenum was normal. Mother reports that ever since then she has also followed with a local surgeon in [place] who has been very happy with overall closure. She still has had some ongoing leakage but this has improved with time. Mother typically has been using some Silvercel dressing and gauze. She does continuousTF with Promote (lactose intolerance). History: Past Medical History: Diagnosis Date Acute respiratory failure ([facility]) Due to MRSA pneumonia 04/2016; Allergic rhinitis Anoxic brain damage ([facility]) Aspiration, chronic pulmonary Bowel and bladder incontinence Cerebral palsy ([facility]) Chronic kidney disease Chronic osteomyelitis of pelvic region, right ([facility]) 2018 required right ischial debridement, followed by Dr. Noland of plastics Chronic respiratory failure with hypoxia ([facility]) 3 L NC, followed by Dr. Stephy Cisse and Dr. Amalia Terry Constipation COVID-19 06/2020 Epilepsy ([facility]) followed at [facility] neurology clinic GERD (gastroesophageal reflux disease) occasional vomiting with gagging MRSA (methicillin resistant Staphylococcus aureus) 04/2016 Bilateral lungs Muscle spasticity medically refractory and has baclofen pump since 1999, followed at [facility] neuro baclofen pump clinic Nonverbal Answers yes with very long blinks per adoptive parent PEG (percutaneous endoscopic gastrostomy) status ([facility]) Presence of intrathecal baclofen pump 1999 [...] RIGHT ISCHIUM; Surgeon: Rad Luque MD; Location: [facility] Main OR; Service: Orthopedic INSERTION PERCUTANEOUS ENDOSCOPIC GASTROSTOMY TUBE INTRATHECAL PUMP REMOVAL Bilateral 07/15/2022 Procedure: REMOVAL OF RIGHT INTRATHECAL PUMP, CATHETER WITH REPLACEMENT ON LEFT SIDE; Surgeon: Jose Portillo MD; Location: [facility] NEURO OR; Service: Neurological LAMINECTOMY DECOMP THORACIC MULTI LEVEL N/A 07/27/2016 Procedure: T1-2 THORACIC FUSION REVISION ; Surgeon: Kb Ramsey MD; [place] [facility] [place]; Service: REVISION PAIN PUMP N/A 07/27/2016 Procedure: BACLOFEN PUMP REPLACEMENT ; Surgeon: Kb Ramsey MD; Location: [facility] [place]; Service: SALIVARY GLAND SURGERY Family [...] (Valtoco) 15 mg/2 spray (7.5/0.1mL x 2) [place] Instill 1 spray into each nostril as [...] manage Nutrition Diagnosis: Swallowing difficulty related to halfway dysphagia as evidenced by NPO/PEG. Nutrition Intervention: [...] Medical History: Diagnosis Date Acute respiratory failure ([facility]) Due to MRSA pneumonia 04/2016; Allergic rhinitis Anoxic brain damage ([facility]) Aspiration, chronic pulmonary Bowel and bladder incontinence Cerebral palsy ([facility]) Chronic kidney disease Chronic osteomyelitis of pelvic region, right ([facility]) 2019 required right ischial debridement, followed by Dr. Noland of plastics Chronic respiratory failure with hypoxia ([facility]) 3 L NC, followed by Dr. Stephy Cisse and Dr. Amalia Terry Constipation COVID-19 06/2020 Epilepsy ([facility]) followed at [facility] neurology clinic GERD (gastroesophageal reflux disease) occasional vomiting with gagging MRSA (methicillin resistant Staphylococcus aureus) 04/2016 Bilateral lungs Muscle spasticity medically refractory and has baclofen pump since 1999, followed at [facility] neuro baclofen pump clinic Nonverbal Answers yes with very long blinks per adoptive parent PEG (percutaneous endoscopic gastrostomy) status ([facility]) Presence of intrathecal baclofen pump 1999 [...] Q12H Continuous Infusions: norEPINEPHrine (LEVOPHED) infusion Stopped (07/16/22926) sodium chloride 0.9 % Stopped (07/15/22 333) sodium chloride 0.9 % 75 mL/hr (07/16/22 012) Estimated Energy Needs Total Energy Estimated Needs: [...] region (2019), and GERD who presented to [place] 07/14/2022 with c/o baclofen pump being eroded through the abdominal pocket. The patient has scoliosiswhich causes her to lay on her right side, where the baclofen pump was located. She arrives to [facility] on POD 0 s/p removal of right [...] all meds and TFs. - Presents to [facility] ED on 07/14/22 with c/o baclofen pump [...] close appropriately. - To [facility] on POD 0 s/p removal of right [...] ml/hr. Bowel regimen: continue miralax. 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 PROPHYLAXIS - Continue home PPI. - SCDs, consider chemoprophylaxis 07/16. PT/OT: Ok for therapy. SW: Consulted. SHARON: TBD. CODE STATUS / FAMILY - Full Code, discussed with patients adoptive mother, Peg Joseph. Plan discussed with [facility] attending Dr. Magdaleno. [facility] to be the accepting service upon transfer from [facility]. Danitza Valentin, ROCKY Neurocritical Care Reason for [...] region (2018), and GERD who presented to [place] 07/14/2022 with c/o baclofen pump being eroded through the abdominal pocket. The patient has scoliosiswhich causes her to lay on her right side, where the baclofen pump was located. She arrives to [facility] on POD 0 s/p removal of right [...] pneumonia 04/2016; Allergic rhinitis Anoxic brain damage ([facility]) Aspiration, chronic pulmonary Bowel and bladder incontinence Cerebral palsy ([facility]) Chronic kidney disease Chronic osteomyelitis of pelvic region, right ([facility]) 2019 required right ischial debridement, followed by Dr. Noland of plastics Chronic respiratory failure with hypoxia ([facility]) 3 L NC, followed by Dr. Stephy Cisse and Dr. Amalia Terry Constipation COVID-19 06/2020 Epilepsy ([facility]) followed at [facility] neurology clinic GERD (gastroesophageal reflux disease) occasional vomiting with gagging MRSA (methicillin resistant Staphylococcus aureus) 04/2016 Bilateral lungs Muscle spasticity medically refractory and has baclofen pump since 1999, followed at [facility] neuro baclofen pump clinic Nonverbal Answers yes with very long blinks per adoptive parent PEG (percutaneous endoscopic gastrostomy) status ([facility]) Presence of intrathecal baclofen pump 1999 [...] RIGHT ISCHIUM; Surgeon: Rad Luque MD; Location: [facility] Main OR; Service: Orthopedic INSERTION PERCUTANEOUS ENDOSCOPIC GASTROSTOMY TUBE LAMINECTOMY DECOMP THORACIC MULTI LEVEL N/A 07/27/2016 Procedure: T1-2 THORACIC FUSION REVISION ; Surgeon: Kb Ramsey MD; [place] [facility] [place]; Service: REVISION PAIN PUMP N/A 07/27/2016 Procedure: BACLOFEN PUMP REPLACEMENT ; Surgeon: Kb Ramsey MD; Location: [facility] [place]; Service: SALIVARY GLAND SURGERY Family [...] (Valtoco) 15 mg/2 spray (7.5/0.1mL x 2) [place] Instill 1 spray into each nostril as [...] 100 [Blood:100] Exam taken upon arrival to [facility]. General: Eyes open. Does not appear to [...] imaging reviewed. No results for input(s): PHART, EYR9LWF, PO2ART, N3DBKEVF, RESPRATE, TIDALVOL, PEEP, W5BQSAKH in the last 72 hours. Recent Labs [...] today's progress note. Nannette Magdaleno MD, DS, FN Neurocritical Care 07/16/22 1:18 PM * Bashir Chappell MD - 07/15/2022 10:55 AM ESTAssociated Order(s): IP CONSULT TO NEUROLOGY Neurology Inpatient Consult [facility] 07/15/2022 Bashir Chappell MD [facility] Patient: Claudine Joseph Date of : 1990 (32 y.o. female) Referring Provider: Refer to consult order in electronic medical record PCP: Marielle Duque MD ASSESSMENT: 32 y.o. female with history of anoxic brain injury, cerebral palsy, chronic kidney disease, epilepsy, spasticity with a baclofen pump presented to [facility] on 07/14/2022 with severe spasticity with [...] female The patient was admitted through the [place] ER because of exposure of the baclofen [...] of plastics Chronic respiratory failure with hypoxia ([facility]) 3 L NC, followed by Dr. Stephy Cisse and Dr. Amalia Terry Constipation COVID-19 06/2020 Epilepsy ([facility]) followed at [facility] neurology clinic GERD (gastroesophageal reflux disease) occasional vomiting with gagging MRSA (methicillin resistant Staphylococcus aureus) 04/2016 Bilateral lungs Muscle spasticity medically refractory and has baclofen pump since 1999, followed at [facility] neuro baclofen pump clinic Nonverbal Answers yes with very long blinks per adoptive parent PEG (percutaneous endoscopic gastrostomy) status ([facility]) Presence of intrathecal baclofen pump 1999 [...] RIGHT ISCHIUM; Surgeon: Rad Luque MD; Location: [facility] Main OR; Service: Orthopedic INSERTION PERCUTANEOUS ENDOSCOPIC GASTROSTOMY TUBE LAMINECTOMY DECOMP THORACIC MULTI LEVEL N/A 07/27/2016 Procedure: T1-2 THORACIC FUSION REVISION ; Surgeon: Kb Ramsey MD; [place] [facility] [place]; Service: REVISION PAIN PUMP N/A 07/27/2016 Procedure: BACLOFEN PUMP REPLACEMENT ; Surgeon: Kb Ramsey MD; Location[place] [facility] [place]; Service: SALIVARY GLAND SURGERY Social [...] (Valtoco) 15 mg/2 spray (7.5/0.1mL x 2) [place] Instill 1 spray into each nostril as [...] 0.9 % sodium chloride 0.9 % Stopped (11/16/22 0924) sodium chloride 0.9 % 75 mL/hr (07/15/22924) HOSPITAL Scheduled Medications: cholecalciferol (vitamin D3) 2,000 Units Tube Daily lamoTRIgine 250 mg Tube BID levETIRAcetam 1,000 mg Tube BID loratadine 10 mg Tube QAM montelukast 10 mg Tube Daily pantoprazole 40 mg Intravenous Daily polyethylene glycol 17 g Tube QAM sodium chloride (PF) 5 mL Intravenous Q8H [facility] PRN Medications: acetaminophen, guaiFENesin, [...] note were not included. Neurosurgery Inpatient Consult [facility] 07/15/2022 Adrienne Baig CNP [facility] Patient: Claudine Joseph Date of : 1990 (32 y.o.) Referring Provider: Refer to consult order in electronic medical record PCP: Marielle Duque MD ASSESSMENT/PLAN: Baclofen pump failure -Exposed baclofen pump right lower lateral abdomen area -Last revised at [place] with Dr. Ramsey on 07/27/2016 -No obvious [...] with quadriplegia-wheelchair bound, baclofen pump revision at [place] with Dr Ramsey on 07/27/2016, back surgery [...] past medical history of Acute respiratory failure ([facility]), Allergic rhinitis, Anoxic brain damage ([facility]), Aspiration, chronic pulmonary, Bowel and bladder incontinence, Cerebral palsy ([facility]), Chronic kidney disease, Chronic osteomyelitis of pelvic region, right ([facility]) (2018),Chronic respiratory failure with hypoxia ([facility]), Constipation, COVID-19 (06/2020), Epilepsy ([facility]), GERD (gastroesophageal reflux disease), MRSA (methicillin resistant Staphylococcus aureus) (04/2016),Muscle spasticity, Nonverbal, PEG (percutaneous endoscopic gastrostomy) status ([facility]), Presence of intrathecal baclofen pump (1999), [...] (Valtoco) 15 mg/2 spray (7.5/0.1mL x 2) [place] Instill 1 spray into each nostril as [...] Results Component Value Date NA 140 01/20/2022 DSM9JNT 54.0 (H) 09/20/2019 INR 1.0 11/21/2016 HGB [...] proceed to OR today. documented in this [id number] Note* Sign Off Note - Amalia Sexton [...] Recall: If questions. If worsening neurologic exam. [id number] Consult note* KEKE Simon - 07/20/2022 2:58 PM EST Associated Order(s): IP CONSULT TO CARE MANAGEMENT; IP CONSULT TO CARE MANAGEMENT Care Management Consult Note Date: 07/20/2022 Time: 2:58 PM Patient Name: Claudine Joseph Date of : 1990 Reason for Consult: OPAT OPAT Discharge Plan: D/C Disposition: Home Health Care Services Related to Current Admission?: Yes Agency/Destination: [facility] Options Reviewed: Explained services/benefits Reason [...] OPAT. Please other [facility] note from today. [id number] Consult note* Abbey Rivera RN - 07/20/2022 1:54 PM ESTAssociated Order(s): IP CONSULT TO HOME HEALTH HUB [facility] agency: Accepted or Pending Name of agency: (if [place], include region) [facility] accepted Infusion pharmacy: (name) Referral ending or accepted? For OPAT, TPN, or TF: (list) Has script been sent? (Yes/no) OHIP- received referral for IV antibiotics at discharge. Message sent to infusion team. Will wait benefits from [facility]. HH & IV ATB- [place] MEDICAID COVERAGE 100% Medication / frequency Zosyn 3.375 g IV Q 8 hours Line / tube [facility] created for the following services: [or waiting for ____ (i.e wound care)] SN/IP Verify the demographics (residential address) [address] [address] What is the primary number to reach you? [phone] Who is your family physician/primary care physician? Marielle Duque MD Following physician will be: (list first name/last name) Katja Helm MD following for OPAT Do you have a caregiver and/or teachable caregiver (list relationship, name & phone #)? Patient's mother Has the patient been added to capacity board/tracking sheet? ([facility] only) Added to [facility] tracking sheet Estimated Discharge Date (SHARON): 07/20/2022 If discharge needs change, please reach out to liaison assigned on treatment team as hub is not notified of new consults once team is following. Thank you. [id number] Note* Sign Off Note - Florence Rebollra CNP - 07/20/2022 1:38 PM EST Neurosurgery [...] with any questions, concerns or clinical updates. [facility] Work Phone: 1(761) 809-992311-21-2022 Hospital Discharge instructions* Discharge Instr - AVS [...] fever >101,chills) -Nausea, vomiting documented in this [id number] Note* Sign Off Note - Katja Helm [...] needed. The patient did not have positive LUBE MAN culture or bacteremia. She has localized pocket infection andit was removed. Recommend 1 week of therapy as above. Levaquin would have been a good option but the chart is reporting allergy to Levaquin. So we need to continue with IV therapy. Please call with any questions. Katja Helm MD, pager # [phone] [facility] Infectious Diseases, office # [phone] [id number] Note* Plan of Care - Brenda De [...] of comfort function goal Outcome: Partially Met [id number] Consult note* Hayden Velazquez DO - 07/19/2022 11:30 AM ESTAssociated Order(s): IP CONSULT TO NEUROLOGY Neurology Inpatient Consult [facility] 07/19/2022 Hayden Velazquez DO [facility] Patient: Claudine Joseph Date of : 1990 (32 y.o. female) Referring Provider: Refer to consult order in electronic medical record PCP: Marielle Duque MD ASSESSMENT: 32 y.o. female with history of anoxic brain injury, cerebral palsy, chronic kidney disease, epilepsy, spasticity with a baclofen pump presented to [facility] on 07/14/2022 with spasticity and baclofen [...] half of that time was spent on gpak-oz-koai counseling and/or coordination of care. DIAGNOSTIC TESTING [...] Medical History: Diagnosis Date Acute respiratory failure ([facility]) Due to MRSA pneumonia 04/2016; Allergic rhinitis Anoxic brain damage ([facility]) Aspiration, chronic pulmonary Bowel and bladder incontinence Cerebral palsy ([facility]) Chronic kidney disease Chronic osteomyelitis of pelvic region, right (HCC) 2019 required right ischial debridement, followed by Dr. Noland of plastics Chronic respiratory failure with hypoxia ([facility]) 3 L NC, followed by Dr. Stephy Cisse and Dr. Amalia Terry Constipation COVID-19 06/2020 Epilepsy ([facility]) followed at [facility] neurology clinic GERD (gastroesophageal reflux disease) occasional vomiting with gagging MRSA (methicillin resistant Staphylococcus aureus) 04/2016 Bilateral lungs Muscle spasticity medically refractory and has baclofen pump since 1999, followed at [facility] neuro baclofen pump clinic Nonverbal Answers yes with very long blinks per adoptive parent PEG (percutaneous endoscopic gastrostomy) status ([facility]) Presence of intrathecal baclofen pump 1999 [...] RIGHT ISCHIUM; Surgeon: Rad Luque MD; Location: [facility] Main OR; Service: Orthopedic INSERTION PERCUTANEOUS ENDOSCOPIC GASTROSTOMY TUBE INTRATHECAL PUMP REMOVAL Bilateral 07/15/2022 Procedure: REMOVAL OF RIGHT INTRATHECAL PUMP, CATHETER WITH REPLACEMENT ON LEFT SIDE; Surgeon: Jose Portillo MD; Location: [facility] NEURO OR; Service: Neurological LAMINECTOMY DECOMP THORACIC MULTI LEVEL N/A 07/27/2016 Procedure: T1-2 THORACIC FUSION REVISION ; Surgeon: Kb Ramsey MD; [place] [facility] [place]; Service: REVISION PAIN PUMP N/A 07/27/2016 Procedure: BACLOFEN PUMP REPLACEMENT ; Surgeon: Kb Ramsey MD; Location: [facility] [place]; Service: SALIVARY GLAND SURGERY Social [...] (Valtoco) 15 mg/2 spray (7.5/0.1mL x 2) [place] Instill 1 spray into each nostril as [...] sodium chloride (PF) 5 mL Intravenous Q8H [facility] PRN Medications: acetaminophen, diazepam, [...] & GROSS MOTOR: Abnormal Movements: None Coordination Wvbvpc-nf-Drox: DNFC Coordination: Blka-Bszu-Vpdn:DNFC Rapid Alternating Movements: DNFC Drift: None Tone: increased throughout Bulk: decreased throughout MOTOR - MUSCLE STRENGTH: Pt contracted of all 4 limbs, did not apply painful stimulus for patient comfort REFLEXES: deferred SENSATION: No response to light touch Hayden Velzaquez D.O., ABPN Vascular Neurologist [facility] [employer] [facility] Work Phone: 1(938) 460-371011-20-2022 Note* Quick Note - Katlin Cano CNP - 07/19/2022 11:06 AM EST Notified by [facility] teat that patient had L gaze preference w/ nystagmus, and arm/leg twitching forapprox 2 minutes. Neurology has been consulted. [facility] Work Phone: [phone] Note* Quick Note - Leeanne Marshall RN [...] came to bedside toeval. Neuro c/s placed. [place] [id number] Note* Plan of Care - Kerry Escalera [...] Goal: Absence of falls Outcome: Partially Met [place] [id number] Note* Sign Off Note - Marcelino Lofton CNP - 07/18/2022 4:28 PM EST Gastroenterology Sign-Off Discharge Medications: N/A Diet Tf per RD recommendations Follow-up Procedures/Testing: N/A Follow-up Imaging: N/A Follow-up Labs: N/A Follow-up Appointment: As needed. No further IP GI w/u planned at this time. Will sign off from GI. Please call if further assistanceis needed in future. Marcelino Lofton CNP [id number] Consult note* Karen Murray MD - 07/17/2022 8:24 AM ESTAssociated Order(s): IP CONSULT TO INFECTIOUS DISEASES Resident Consult Note Patient Name: Claudine Joseph : 1990 Admit Date: [id number] Assessment and Plan Patient is a 32 y.o. female with a past medical history significant for cerebral palsy s/p baclofenpump, quadriplegia, chronic urinary retention with sage, dysphagia s/p PEG tube, epilepsy, who presented to [facility] 07/14/2022 for exposed baclofen pump. ID consulted [...] finalized until attested by Attending Physician Karen Murray MD Internal Medicine PGY-3 Pager: [phone] Chief Complaint: exposed baclofen pump History of Present Illness Claudine Joseph is a 32 y.o. female with pmh of cerebral palsy, anoxic brain injury, uadriplegia, chronic urinary retention with sage, dysphagia s/p PEG tube, epilepsy, who presented to [facility] 07/14/2022 for exposed baclofen pump. ID consulted [...] pneumonia 04/2016; Allergic rhinitis Anoxic brain damage ([facility]) Aspiration, chronic pulmonary Bowel and bladder incontinence Cerebral palsy ([facility]) Chronic kidney disease Chronic osteomyelitis of pelvic region, right ([facility]) 2019 required right ischial debridement, followed by Dr. Noland of plastics Chronic respiratory failure with hypoxia ([facility]) 3 L NC, followed by Dr. Stephy Cisse and Dr. Amalia Terry Constipation COVID-19 06/2020 Epilepsy ([facility]) followed at [facility] neurology clinic GERD (gastroesophageal reflux disease) occasional vomiting with gagging MRSA (methicillin resistant Staphylococcus aureus) 04/2016 Bilateral lungs Muscle spasticity medically refractory and has baclofen pump since 1999, followed at [facility] neuro baclofen pump clinic Nonverbal Answers yes with very long blinks per adoptive parent PEG (percutaneous endoscopic gastrostomy) status ([facility]) Presence of intrathecal baclofen pump 1999 [...] RIGHT ISCHIUM; Surgeon: Rad Luque MD; Location: [facility] Main OR; Service: Orthopedic INSERTION PERCUTANEOUS ENDOSCOPIC GASTROSTOMY TUBE INTRATHECAL PUMP REMOVAL Bilateral 07/15/2022 Procedure: REMOVAL OF RIGHT INTRATHECAL PUMP, CATHETER WITH REPLACEMENT ON LEFT SIDE; Surgeon: Jose Portillo MD; Location: [facility] NEURO OR; Service: Neurological LAMINECTOMY DECOMP THORACIC MULTI LEVEL N/A 07/27/2016 Procedure: T1-2 THORACIC FUSION REVISION ; Surgeon: Kb Ramsey MD; [place] [facility] [place]; Service: REVISION PAIN PUMP N/A 07/27/2016 Procedure: BACLOFEN PUMP REPLACEMENT ; Surgeon: Kb Ramsey MD; Location: [facility]; Service: SALIVARY GLAND SURGERY Family [...] was seen, examined, & discussed with our director medical affairs. I agree with the outlined history, examination, [...] with questions. Katja Helm MD, pager # [phone] [facility] Infectious Diseases, office # [phone] [facility] Work Phone: [phone] Note* ED Attestation Note - Fernando Camacho MD - 07/17/2022 6:12 AM EST This patient was assessed by both physician and an APC. Personally evaluated examined the patient. Performed all aspects of the MDM as documented. Patient's baclofen pump right lateral abdomen is exposed. Will be hospitalized at this time for neurosurgeon consultation and likely removal. . . [id number] Note* Quick Note - Kendall Salgado RN [...] distress and is okay. Called [facility] doctor tension worker and reached out to pharmacy to see if they had any recommendations on wh at to do with the vancomycin. [id number] Note* Quick Note - Nava Renteria RN - 07/16/2022 6:57 PM EST Epidiolex (cannabidol) given to 5 nunn TAMMY Dwyer. [id number] Note* Quick Note - Nava Renteria RN - 07/16/2022 6:26 PM EST Patient transferred out of unit to room 55 with Patient arrives on unit with wheelchair, oxygen tank, clothes, home slade pad, blankets and two bags full of yarn Verified with second associate, Newton Lovelace RN [id number] Evaluation + Plan note* Assessment & Plan [...] pelvic region (2019), and GERD who presentedto [place] 07/14/2022 with c/o baclofen pump being eroded through the abdominal pocket. This was exchanged yesterday 07/15 by neurosurgery. We have been consulted about leakage from PEG site. 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 This was closed by [facility] November 2021 with an [facility] clip and suture. She has a PEG placed at a new site that has been functioning well. On the floor this afternoon nursing staff noticed some leakage at the prior site. Mother reports that since November she has still has some persistent leakage at the priorPEG site. They see a local surgeon in [place] who has been very happy with overall [...] Motherhas been happy with surgical group in [place]. If she has heightened concerns for leakage can further re- evaluate potential EGD / surgical consultation. We will follow up tomorrow. [id number] Consult note* Zeke Turk CNP - 07/16/2022 2:31 PM EST Neurocritical Care Transfer Note Claudine Joseph is a 32 y.o. female with a past medical history of anoxic brain damage, spastic CP and quadriplegia s/p baclofen pump, epilepsy, neurogenic bladder with chronic sage, dysphagia with chronic PEG, osteomyelitis of pelvic region (2018), and GERD who presented to [place] 07/14/2022 with c/o baclofen pump being eroded through the abdominal pocket. The patient has scoliosiswhich causes her to lay on her right side, where the baclofen pump was located. She arrives to [facility] on POD 0 s/p removal of right [...] all meds and TFs. - Presents to [facility] ED on 07/14/22 with c/o baclofen pump [...] GI. Bowel regimen: continue miralax. 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 PROPHYLAXIS - Continue home PPI. - SCDs, consider chemoprophylaxis 07/16. PT/OT: Ok for therapy. SW: Consulted. SHARON: TBD. CODE STATUS / FAMILY - Full Code, discussed with patients adoptive mother, Peg Joseph. Plan discussed with [facility] attending Dr. Magdaleno. [facility] to be the accepting service upon transfer from [facility]. Zeke Turk, ROCKY Neurocritical Care Subjective / Events: Slight hypotension [...] needs, [facility] consulted, ok for transfer from [facility]. Review of Systems: [] CV, Resp, GI, [...] Drains:10; Blood:100] Exam taken upon arrival to [facility]. General: Eyes open. Does not appear to [...] imaging reviewed. No results for input(s): PHART, DXT6IMN, PO2ART, V2AVTHCB, RESPRATE, TIDALVOL, PEEP, E4YTTOHG in the last 72 hours. Recent Labs [...] DS, FN Neurocritical Care 07/16/22 6:10 PM [facility] Work Phone: 1(970) 433-927611-17-2022 Consult note* Marcelino Rocha MD - 07/16/2022 2:08 PM ESTAssociated Order(s): IP CONSULT TO GASTROENTEROLOGY GASTROENTEROLOGY/HEPATOLOGY CONSULT NOTE 4 Patient Name: Claudine Joseph Admit Date: [id number] Date of Consult: 07/16/22 MR #: [id number] : 1990 Physicians: Marielle Duque MD (Family); [...] pelvic region (2018), and GERD who [place] 07[place]14[place]20[place] with c/o baclofen pump being eroded through the abdominal pocket. This was exchanged yesterday 07/15 by neurosurgery. We have been consulted about leakage from PEG site. 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 This was closed by [facility] November 2021 with an [facility] clip and suture. She has a PEG placed at a new site that has been functioning well. On the floor this afternoon nursing staff noticed some leakage at the prior site. Mother reports that since November she has still has some persistent leakage at the priorPEG site. They see a local surgeon in [place] who has been very happy with overall [...] Motherhas been happy with surgical group in [place]. If she has heightened concerns for leakage [...] region (2018), and GERD who presented to [place] 07/14/2022 with c/o baclofen pump being eroded [...] over a decade. In November 2021 at [facility] she had an EGD for [facility] closure of fistula. The examined esophagus [...] blood loss was minimal. A suture and xhci-ymy-gpgdb-clip was found in the gastric body at the site of the prior PEG tube. There was no persistent fistula seen. The examinedduodenum was normal. Mother reports that ever since then she has also followed with a local surgeon in [place] who has been very happy with overall [...] Dr. Amalia Terry Constipation COVID-19 06/2020 Epilepsy ([facility]) followed at [facility] neurology clinic GERD (gastroesophageal reflux disease) occasional vomiting with gagging MRSA (methicillin resistant Staphylococcus aureus) 04/2016 Bilateral lungs Muscle spasticity medically refractory and has baclofen pump since 1999, followed at [facility] neuro baclofen pump clinic Nonverbal Answers yes with very long blinks per adoptive parent PEG (percutaneous endoscopic gastrostomy) status ([facility]) Presence of intrathecal baclofen pump 1999 [...] RIGHT ISCHIUM; Surgeon: Rad Luque MD; Location: [facility] Main OR; Service: Orthopedic INSERTION PERCUTANEOUS ENDOSCOPIC GASTROSTOMY TUBE INTRATHECAL PUMP REMOVAL Bilateral 07/15/2022 Procedure: REMOVAL OF RIGHT INTRATHECAL PUMP, CATHETER WITH REPLACEMENT ON LEFT SIDE; Surgeon: Jose Portillo MD; Location: [facility] NEURO OR; Service: Neurological LAMINECTOMY DECOMP THORACIC MULTI LEVEL N/A 07/27/2016 Procedure: T1-2 THORACIC FUSION REVISION ; Surgeon: Kb Ramsey MD; Location: [facility] [place]; Service: REVISION PAIN PUMP N/A 07/27/2016 Procedure: BACLOFEN PUMP REPLACEMENT ; Surgeon: Kb Ramsey MD; Location: [facility]; Service: SALIVARY GLAND SURGERY Family [...] (Valtoco) 15 mg/2 spray (7.5/0.1mL x 2) [place] Instill 1 spray into each nostril as [...] 0948 INR 1.0 Marcelino Rocha MD Gastroenterology [id number] Consult note* Celia Ra Jeronimo, RD - 07/16/2022 12:46 PM ESTAssociated Order(s): IP CONSULT TO DIETITIAN Nutrition Care Initial Assessment Reason for visit: Physician Consult for Tube feeding, initiate and manage Nutrition Diagnosis: Swallowing difficulty related to halfway dysphagia as evidenced by NPO/PEG. Nutrition Intervention: [...] Dr. Amalia Terry Constipation COVID-19 06/2020 Epilepsy ([facility]) followed at [facility] neurology clinic GERD (gastroesophageal reflux disease) occasional vomiting with gagging MRSA (methicillin resistant Staphylococcus aureus) 04/2016 Bilateral lungs Muscle spasticity medically refractory and has baclofen pump since 1999, followed at [facility] neuro baclofen pump clinic Nonverbal Answers yes [...] Continuous Infusions: norEPINEPHrine (LEVOPHED) infusion Stopped (07/16/22 6580) sodium chloride 0.9 % Stopped (07/15/22 6060) sodium chloride 0.9 % 75 mL/hr (07/16/22 1159) Estimated Energy Needs Total Energy Estimated Needs: 1014kcal Method for Estimating Needs: 30kcal/kg Total Protein Estimated Needs: 57-76g Method for Estimating Needs: 1.5-2g/kg Celia Jeronimo RD, LD, CNSC [id number] Procedure note* Danitza Valentin CNP - 07/16/2022 6:25 AM ESTProcedure(s): CENTRAL VENOUS CATHETER INSERTION Central Venous Catheter Insertion Procedure Note Patient Name: Claudine Joseph Admit Date: 11141001 MR #: [id number] : 1990 Sedation Plan: Minimal Pre-Sedation Assessment ASA Classification: 2 - Patient with mild systemic disease Minter Protocol: 1. Pre-procedure verification: - Correct patient, [...] None Post Procedure Plan includes dressing changes [facility] Work Phone: 1(386) 510-585511-17-2022 Procedure note* Danitza Valentin CNP - 07/16/2022 6:25 AM ESTProcedure(s): CENTRAL VENOUS CATHETER INSERTION Central Venous Catheter Insertion Procedure Note Patient Name: Claudine Joseph Admit Date: [id number] MR #: [id number] : 1990 Sedation Plan: Minimal Pre-Sedation Assessment ASA Classification: 2 - Patient with mild systemic disease Minter Protocol: 1. Pre-procedure verification: - Correct patient, [...] Plan includes dressing changes documented in this [id number] Note* Quick Note - Danitza Valentin CNP - 07/16/2022 2:21 AM EST Patient takes cannabidioL (Epidiolex) at home for epilepsy. This medication is not on formulary. The patient mother brought this medication in earlier tonight. Pharmacy has instructed nurse to walk the medication to pharmacy, which was completed. [id number] Note* Significant Event - Danitza Valentin CNP [...] 0231: Will add pepcid per pharmacy recommendation. [place] [id number] Note* Quick Note - Latricia Curry RN [...] Preventative Mepilex applied to sacrum and heels. [place] [id number] Note Suboptimal evaluation of the abdomen with too many overlapping structures. Workstation ID: [id number] Consult note* Danitza Valentin CNP - 07/15/2022 9:00 PM ESTAssociated Order(s): IP CONSULT TO NEURO CRITICAL CARE Neurocritical Care Consultation Claudine Joseph is a 32 y.o. 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 The patient has scoliosiswhich causes her to lay on her right side, where the baclofen pump was located. She arrives to [facility] on POD 0 s/p removal of right [...] all meds and TFs. - Presents to [facility] ED on 07/14/22 with c/o baclofen pump [...] pocket does not close appropriately. - To [facility] on POD 0 s/p removal of right [...] ml/hr. Bowel regimen: continue miralax. 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 PROPHYLAXIS - Continue home PPI. - SCDs, consider chemoprophylaxis 07/16. PT/OT: Ok for therapy. SW: Consulted. SHARON: TBD. CODE STATUS / FAMILY - Full Code, discussed with patients adoptive mother, Peg Joseph. Plan discussed with [facility] attending Dr. Magdaleno. Thiago to be the accepting service upon transfer from [facility]. Danitza Valentin, [facility] Neurocritical Care Reason for [...] region (2019), and GERD who presented to [place] 07/14/2022 with c/o baclofen pump being eroded through the abdominal pocket. The patient has scoliosiswhich causes her to lay on her right side, where the baclofen pump was located. She arrives to [facility] on POD 0 s/p removal of right [...] pneumonia 04/2016; Allergic rhinitis Anoxic brain damage ([facility]) Aspiration, chronic pulmonary Bowel and bladder incontinence Cerebral palsy ([facility]) Chronic kidney disease Chronic osteomyelitis of pelvic region, right (HCC) 2019 required right ischial debridement, followed by Dr. Noland of plastics Chronic respiratory failure with hypoxia ([facility]) 3 L NC, followed by Dr. Stephy Cisse and Dr. Amalia Terry Constipation COVID-19 06/2020 Epilepsy ([facility]) followed at [facility] neurology clinic GERD (gastroesophageal reflux disease) occasional vomiting with gagging MRSA (methicillin resistant Staphylococcus aureus) 04/2016 Bilateral lungs Muscle spasticity medically refractory and has baclofen pump since 1999, followed at [facility] neuro baclofen pump clinic Nonverbal Answers yes with very long blinks per adoptive parent PEG (percutaneous endoscopic gastrostomy) status ([facility]) Presence of intrathecal baclofen pump 1999 [...] RIGHT ISCHIUM; Surgeon: Rad Luque MD; Location: [facility] Main OR; Service: Orthopedic INSERTION PERCUTANEOUS ENDOSCOPIC GASTROSTOMY TUBE LAMINECTOMY DECOMP THORACIC MULTI LEVEL N/A 07/27/2016 Procedure: T1-2 THORACIC FUSION REVISION ; Surgeon: Kb Ramsey MD; [place] [facility] [place]; Service: REVISION PAIN PUMP N/A 07/27/2016 Procedure: BACLOFEN PUMP REPLACEMENT ; Surgeon: Kb Ramsey MD; Location: [facility] [place]; Service: SALIVARY GLAND SURGERY Family [...] (Valtoco) 15 mg/2 spray (7.5/0.1mL x 2) [place] Instill 1 spray into each nostril as [...] 100 [Blood:100] Exam taken upon arrival to [facility]. General: Eyes open. Does not appear to [...] imaging reviewed. No results for input(s): PHART, EAQ8IJB, PO2ART, E4MBQDCX, RESPRATE, TIDALVOL, PEEP, J3KOWZSK in the last 72 hours. Recent Labs [...] to today's progress note. Nannette Magdaleno MD, [facility], [facility] Neurocritical Care 07/16/22 1:18 PM [id number] Note* Brief Op Note - Kemal Barber DO - 07/15/2022 7:35 PM EST Brief Post Operative Note Patient Name: Claudine Joseph : 1990 (32 y.o.) Date of Service: 07/15/2022 CSN: [id number] Procedure(s): REMOVAL OF RIGHT INTRATHECAL PUMP, CATHETER WITH REPLACEMENT ON LEFT SIDE Pre-Operative Diagnoses: * INFECTION OF INTRATHECAL PUMP Post-Operative Diagnoses: * INFECTION OF INTRATHECAL PUMP Surgeon(s) and Role: * Peter Portillo MD - Primary * Kemal Barber DO - Resident - Assisting Anesthesiologist: Mignon Bazan MD; Ernesto Rivera MD Excel Vba Developer: Priyanka Buenrostro RN; Karen Hanson RN Scrub [...] Implant Name Type Inv. Item Serial No. Security System Administrator Lot No. LRB No. Used Action PUMP 40ML PAIN SYNCHROMED II - [id number] Catheter - Implant PUMP 40ML PAIN SYNCHROMED II [id number] [employer] ELAINE N/A 1 Explanted Intrathecal Catheter Pump Segment Revision Kit MEDTRONIC [id number] Implanted PUMP 40ML PAIN SYNCHROMED II - [id number] Catheter - Implant PUMP 40ML PAIN SYNCHROMED II [id number] [employer] ELAINE 1 Implanted Drain(s): Closed/Suction Drain [...] Fresh blood 07/15/221902 Primary Dressing Non adherent 07/15/22 190 Secondary Dressing Transparent film 07/15/221902 Wound 07/15/22 [...] 07/15/221902 Kemal Barber DO 07/15/2022 7:35 PM [id number] Note* Op Note - Peter Portillo MD - 07/15/2022 4:17 PM EST [facility] PATIENT NAME: Claudine Joseph DATE OF : 1990 CSN: [id number] PHYSICIAN: Peter Portillo MD ADMIT DATE: 07/14/2022 [...] female with spastic cerebral palsy, presented to [facility] after the pump extruded from the right [...] catheter left in place. PETER PORTILLO MD [id number] Note* Sign Off Note - Bashir Chappell MD - 07/15/2022 3:05 PM EST Neurology Sign-Off Diagnosis: Baclofen pump exposure Tests Pending: None Discharge Medications & Treatments: None Additional Recommendations: None Follow-up Testing (After Discharge): None Follow-up Appointment: Follow-up in spasticity clinic with Dr. Estuardo Moncada after discharge Recall: If questions. [id number] Attending History and physical note* Peter Law MD - 07/15/2022 2:13 PM EST INTERVAL HISTORY AND PHYSICAL Patient Name: Claudine Joseph Admit Date: [id number] MR #: [id number] : 1990 The H&P has been reviewed and the patient has been examined. I concur with the findings of the H&P. There are no significant changes. It is appropriate to proceed with the planned procedure. Peter Portillo MD 07/15/2022 2:13 PM Source Note - Adrienne Baig CNP - 07/15/2022 1:34 AM EST Images from the original note were not included. Neurosurgery Inpatient Consult [facility] 07/15/2022 Adrienne Baig CNP [facility] Patient: Claudine Joseph Date of : 1990 (32 y.o.) Referring Provider: Refer to consult order in electronic medical record PCP: Marielle Duque MD ASSESSMENT/PLAN: Baclofen pump failure -Exposed baclofen pump right lower lateral abdomen area -Last revised at [place] with Dr. Ramsey on 07/27/2016 -No obvious [...] with quadriplegia-wheelchair bound, baclofen pump revision at [facility] with Dr Ramsey on 07/27/2016, back surgery [...] past medical history of Acute respiratory failure ([facility]), Allergic rhinitis, Anoxic brain damage ([facility]), Aspiration, chronic pulmonary, Bowel and bladder incontinence, Cerebral palsy ([facility]), Chronic kidney disease, Chronic osteomyelitis of pelvic region, right ([facility]) (2018),Chronic respiratory failure with hypoxia ([facility]), Constipation, COVID-19 (06/2020), Epilepsy ([facility]), GERD (gastroesophageal reflux disease), MRSA (methicillin resistant Staphylococcus aureus) (04/2016),Muscle spasticity, Nonverbal, PEG (percutaneous endoscopic gastrostomy) status ([facility]), Presence of intrathecal baclofen pump (1999), [...] (Valtoco) 15 mg/2 spray (7.5/0.1mL x 2) [place] Instill 1 spray into each nostril as [...] for nausea . 10/17/21 07/14/22 Yes Magalie oRme MD polyethylene glycol (MIRALAX) 17 gram powder 17 g by Per G Tube route every morning . Yes Historical Provider, promethazine (PHENERGAN) 12.5 MG suppository Insert 12.5 mg into the rectum every 6 (six) hours as needed for nausea. Yes Historical Provider, [facility] Infusions: sodium chloride 0.9 % HOSPITAL Scheduled Medications: enoxaparin (LOVENOX) injection 30 mg Subcutaneous Daily lamoTRIgine 250 mg Tube BID levETIRAcetam 1,000 mg Tube BID loratadine 10 mg Tube QA montelukast 10 mg Tube Daily pantoprazole 40 [...] Results Component Value Date NA 140 01/20/2022 [id number] 54.0 (H) 09/20/2019 INR 1.0 11/21/2016 HGB 10.5 (L) 01/20/2022 WBC 9.97 01/20/2022 PLT 294 01/20/2022 BUN 10 01/20/2022 CREATININE 0.23 (L) 01/20/2022 [id number] History and physical note* Peter Portillo MD - 07/15/2022 2:13 PM EST INTERVAL HISTORY AND PHYSICAL Patient Name: Claudine Joseph Admit Date: [id number] MR #: [id number] : 1990 The H&P has been reviewed and the patient has been examined. I concur with the findings of the H&P. There are no significant changes. It is appropriate to proceed with the planned procedure. Peter Portillo MD 07/15/2022 2:13 PM Source Note - Adrienne Baig CNP - 07/15/2022 1:34 AM EST Images from the original note were not included. Neurosurgery Inpatient Consult [facility] 07/15/2022 Adrienne Baig CNP [facility] Patient: Claudine Joseph Date of : 1990 (32 y.o.) Referring Provider: Refer to consult order in electronic medical record PCP: Marielle Duque MD ASSESSMENT/PLAN: Baclofen pump failure -Exposed baclofen pump right lower lateral abdomen area -Last revised at [place] with Dr. Ramsey on 07/27/2016 -No obvious [...] with quadriplegia-wheelchair bound, baclofen pump revision at [facility] with Dr Ramsey on 07/27/2016, back surgery [...] past medical history of Acute respiratory failure ([facility]), Allergic rhinitis, Anoxic brain damage ([facility]), Aspiration, chronic pulmonary, Bowel and bladder incontinence, Cerebral palsy ([facility]), Chronic kidney disease, Chronic osteomyelitis of pelvic region, right ([facility]) (2018),Chronic respiratory failure with hypoxia ([facility]), Constipation, COVID-19 (06/2020), Epilepsy ([facility]), GERD (gastroesophageal reflux disease), MRSA (methicillin resistant Staphylococcus aureus) (04/2016),Muscle spasticity, Nonverbal, PEG (percutaneous endoscopic gastrostomy) status ([facility]), Presence of intrathecal baclofen pump (1999), [...] (Valtoco) 15 mg/2 spray (7.5/0.1mL x 2) [place] Instill 1 spray into each nostril as [...] Results Component Value Date NA 140 01/20/2022 [id number] 54.0 (H) 09/20/2019 INR 1.0 11/21/2016 HGB 10.5 (L) 01/20/2022 WBC 9.97 01/20/2022 PLT 294 01/20/2022 BUN 10 01/20/2022 CREATININE 0.23 (L) 01/20/2022 * Magalie Ross Jr., MD - 07/14/2022 11:52 PM EST Images from the original note were not included. [facility] History and Physical Note 07/14/22 Claudine Joseph 1990 [id number] Assessment/Plan: Claudine Joseph is a 32 y.o. female with a history of anoxic brain injury, cerebral palsy, CKD, epilepsy, spasticity s/p baclofen pump who presented to [facility] 07/14/2022 with exposure of a portion of her baclofen pump. Baclofen pump failure: Exposed baclofen pump R buttock/hip area. No obvious signs of infection or drainage. Last revised at [facility] with Dr Ramsey (neurosurgry). Neurosurgery consulted for [...] meds sand nutrition through peg. Has chornic sgae. ROS: Unable to perform a complete review of systems due to Past Medical, Surgical, Social, Family History: Past Medical History: Diagnosis Date Acute respiratory failure (HCC) Due to MRSA pneumonia 04/2016; Allergic rhinitis Anoxic brain damage ([facility]) Aspiration, chronic pulmonary Bowel and bladder incontinence Cerebral palsy ([facility]) Chronic kidney disease Chronic osteomyelitis of pelvic region, right ([facility]) 2018 required right ischial debridement, followed by Dr. Noland of plastics Chronic respiratory failure with hypoxia ([facility]) 3 L NC, followed by Dr. Stephy Cisse and Dr. Amalia Terry Constipation COVID-19 06/2020 Epilepsy ([facility]) followed at [facility] neurology clinic GERD (gastroesophageal reflux disease) occasional vomiting with gagging MRSA (methicillin resistant Staphylococcus aureus) 04/2016 Bilateral lungs Muscle spasticity medically refractory and has baclofen pump since 1999, followed at [facility] neuro baclofen pump clinic Nonverbal Answers yes with very long blinks per adoptive parent PEG (percutaneous endoscopic gastrostomy) status ([facility]) Presence of intrathecal baclofen pump 1999 [...] RIGHT ISCHIUM; Surgeon: Rad Luque MD; Location: [facility] Main OR; Service: Orthopedic INSERTION PERCUTANEOUS ENDOSCOPIC GASTROSTOMY TUBE LAMINECTOMY DECOMP THORACIC MULTI LEVEL N/A 07/27/2016 Procedure: T1-2 THORACIC FUSION REVISION ; Surgeon: Kb Ramsey MD; [place] [facility] [place] [facility] [place]; Service: REVISION PAIN PUMP N/A 07/27/2016 Procedure: BACLOFEN PUMP REPLACEMENT ; Surgeon: Kb Ramsey MD; Location: [facility] [place] [place]; Service: SALIVARY GLAND SURGERY Social [...] (Valtoco) 15 mg/2 spray (7.5/0.1mL x 2) [place] Instill 1 spray into each nostril as [...] Invalid input(s): MAG AJ documented in this [id number] Emergency department Note* Elizabeth Nava RN - 07/15/2022 1:55 PM EST Pt to pre-op [id number] Emergency department Note* Elizabeth Nava RN - 07/15/2022 1:55 PM EST Pt to pre-op * Nava Hung RN - 07/15/2022 5:51 AM EST Pt transferred over to hospital bed. Pt resting comfortably. Denies further needs * Fernando Camacho MD - 07/14/2022 10:31 PM EST ED PROVIDER NOTE [facility] EMERGENCY DEPARTMENT NAME: Claudine Joseph AGE: 32 y.o. : 1990 VISIT DATE: 07/14/2022 CSN: [id number] PCP: Marielle Duque MD Chief Complaint Patient presents with baclofen pump exposed Patient is a 32-year-old female history of anoxic brain damage cerebral palsy epilepsy muscle spasticity presents with complaints of baclofen pump exposure. Patient and had a somewhat of a discoloredarea around the baclofen pump according to her parent and cabinet installer. But now is exposed here over the [...] Dr. Amalia Terry Constipation COVID-19 06/2020 Epilepsy (HCC) followed at [facility] neurology clinic GERD (gastroesophageal reflux disease) occasional vomiting with gagging MRSA (methicillin resistant Staphylococcus aureus) 04/2016 Bilateral lungs Muscle spasticity medically refractory and has baclofen pump since 1999, followed at [facility] neuro baclofen pump clinic Nonverbal Answers yes with very long blinks per adoptive parent PEG (percutaneous endoscopic gastrostomy) status ([facility]) Presence of intrathecal baclofen pump 1999 [...] RIGHT ISCHIUM; Surgeon: Rad Luque MD; Location: [facility] Main OR; Service: Orthopedic INSERTION PERCUTANEOUS ENDOSCOPIC GASTROSTOMY TUBE LAMINECTOMY DECOMP THORACIC MULTI LEVEL N/A 07/27/2016 Procedure: T1-2 THORACIC FUSION REVISION ; Surgeon: Kb Ramsey MD; Location: [facility] [place]; Service: REVISION PAIN PUMP N/A 07/27/2016 Procedure: BACLOFEN PUMP REPLACEMENT ; Surgeon: Kb Ramsey MD; Location: [facility] [place] [facility] [place]; Service: SALIVARY GLAND SURGERY Family [...] (Valtoco) 15 mg/2 spray (7.5/0.1mL x 2) [place] Instill 1 spray into each nostril as [...] baclofen pump became exposed. documented in this [id number] Consult note* Bashir Chappell MD - 07/15/2022 10:55 AM ESTAssociated Order(s): IP CONSULT TO NEUROLOGY Neurology Inpatient Consult [facility] 07/15/2022 Bashir Chappell MD [facility] Patient: Claudine Joseph Date of : 1990 (32 y.o. female) Referring Provider: Refer to consult order in electronic medical record PCP: Marielle Duque MD ASSESSMENT: 32 y.o. female with history of anoxic brain injury, cerebral palsy, chronic kidney disease, epilepsy, spasticity with a baclofen pump presented to [facility] on 07/14/2022 with severe spasticity with [...] female The patient was admitted through the [place] ER because of exposure of the baclofen [...] of plastics Chronic respiratory failure with hypoxia ([facility]) 3 L NC, followed by Dr. Stephy Cisse and Dr. Amalia Terry Constipation COVID-19 06/2020 Epilepsy (HCC) followed at [facility] neurology clinic GERD (gastroesophageal reflux disease) occasional vomiting with gagging MRSA (methicillin resistant Staphylococcus aureus) 04/2016 Bilateral lungs Muscle spasticity medically refractory and has baclofen pump since 1999, followed at [facility] neuro baclofen pump clinic Nonverbal Answers yes with very long blinks per adoptive parent PEG (percutaneous endoscopic gastrostomy) status ([facility]) Presence of intrathecal baclofen pump 1999 [...] RIGHT ISCHIUM; Surgeon: Rad Luque MD; Location: [facility] Main OR; Service: Orthopedic INSERTION PERCUTANEOUS ENDOSCOPIC GASTROSTOMY TUBE LAMINECTOMY DECOMP THORACIC MULTI LEVEL N/A 07/27/2016 Procedure: T1-2 THORACIC FUSION REVISION ; Surgeon: Kb Ramsey MD; Location: [facility] [facility] [place]; Service: REVISION PAIN PUMP N/A 07/27/2016 Procedure: BACLOFEN PUMP REPLACEMENT ; Surgeon: Kb Ramsey MD; Location: [facility] [place] [facility]; Service: SALIVARY GLAND SURGERY Social [...] (Valtoco) 15 mg/2 spray (7.5/0.1mL x 2) [place] Instill 1 spray into each nostril as [...] sodium chloride (PF) 5 mL Intravenous Q8H [facility] PRN Medications: acetaminophen, guaiFENesin, [...] There was no movement in the legs. [facility] Work Phone: 1(492) 330-326711-16-2022 Telephone encounter Note* Telephone Encounter - Falguni Curry RN - 07/15/2022 10:06 AM EST Signed prescription faxed to [facility] [phone], confirmation received. [id number] Miscellaneous Notes* Telephone Encounter - Falguni Curry RN - 07/15/2022 10:06 AM EST Signed prescription faxed to [facility] [phone], confirmation received. * Telephone Encounter - Falguni Curry RN - 07/15/2022 9:18 AM EST Patient is currently in the ER with exposed ITB pump and elevated CRP/ESR/WBC. Request from [facility] for refills for home ITB fills. documented in this [id number] Telephone encounter Note* Telephone Encounter - Falguni Curry RN - 07/15/2022 9:18 AM EST Patient is currently in the ER with exposed ITB pump and elevated CRP/ESR/WBC. Request from [facility] for refills for home ITB fills. [id number] Emergency department Note* Nava Hung RN - 07/15/2022 5:51 AM EST Pt transferred over to hospital bed. Pt resting comfortably. Denies further needs [id number] Consult note* Adrienne Baig CNP - 07/15/2022 1:34 AM EST Images from the original note were not included. Neurosurgery Inpatient Consult [facility] 07/15/2022 Adrienne Baig CNP [facility] Patient: Claudine Joseph Date of : 1990 (32 y.o.) Referring Provider: Refer to consult order in electronic medical record PCP: Marielle Duque MD ASSESSMENT/PLAN: Baclofen pump failure -Exposed baclofen pump right lower lateral abdomen area -Last revised at [facility] with Dr. Ramsey on 07/27/2016 -No obvious [...] with quadriplegia-wheelchair bound, baclofen pump revision at [facility] with Dr Ramsey on 07/27/2016, back surgery [...] past medical history of Acute respiratory failure ([facility]), Allergic rhinitis, Anoxic brain damage ([facility]), Aspiration, chronic pulmonary, Bowel and bladder incontinence, Cerebral palsy ([facility]), Chronic kidney disease, Chronic osteomyelitis of pelvic region, right ([facility]) (2018),Chronic respiratory failure with hypoxia ([facility]), Constipation, COVID-19 (06/2020), Epilepsy ([facility]), GERD (gastroesophageal reflux disease), MRSA (methicillin resistant Staphylococcus aureus) (04/2016),Muscle spasticity, Nonverbal, PEG (percutaneous endoscopic gastrostomy) status ([facility]), Presence of intrathecal baclofen pump (1999), [...] (Valtoco) 15 mg/2 spray (7.5/0.1mL x 2) [place] Instill 1 spray into each nostril as [...] Results Component Value Date NA 140 01/20/2022 [id number] 54.0 (H) 09/20/2019 INR 1.0 11/21/2016 HGB [...] obtained. We will proceed to OR today. [facility] Work Phone: 1(189) 398-561011-15-2022 History and physical note* Magalie Ross Jr., MD - 07/14/2022 11:52 PM EST Images from the original note were not included. [facility] History and Physical Note 07/14/22 Claudine Joseph 1990 [id number] Assessment/Plan: Claudine Joseph is a 32 y.o. female with a history of anoxic brain injury, cerebral palsy, CKD, epilepsy, spasticity s/p baclofen pump who presented to [facility] 07/14/2022 with exposure of a portion of her baclofen pump. Baclofen pump failure: Exposed baclofen pump R buttock/hip area. No obvious signs of infection or drainage. Last revised at [facility] with Dr Ramsey (neurosurgry). Neurosurgery consulted for [...] of plastics Chronic respiratory failure with hypoxia ([facility]) 3 L NC, followed by Dr. Stephy Cisse and Dr. Amalia Terry Constipation COVID-19 06/2020 Epilepsy ([facility]) followed at [facility] neurology clinic GERD (gastroesophageal reflux disease) occasional vomiting with gagging MRSA (methicillin resistant Staphylococcus aureus) 04/2016 Bilateral lungs Muscle spasticity medically refractory and has baclofen pump since 1999, followed at [facility] neuro baclofen pump clinic Nonverbal Answers yes with very long blinks per adoptive parent PEG (percutaneous endoscopic gastrostomy) status ([facility]) Presence of intrathecal baclofen pump 1999 [...] RIGHT ISCHIUM; Surgeon: Rad Luque MD; Location: [facility] Main OR; Service: Orthopedic INSERTION PERCUTANEOUS ENDOSCOPIC GASTROSTOMY TUBE LAMINECTOMY DECOMP THORACIC MULTI LEVEL N/A 07/27/2016 Procedure: T1-2 THORACIC FUSION REVISION ; Surgeon: Kb Ramsey MD; Location: [facility] [place] [facility] [place]; Service: REVISION PAIN PUMP N/A 07/27/2016 Procedure: BACLOFEN PUMP REPLACEMENT ; Surgeon: Kb Ramsey MD; Location: [facility] [place] [facility] [place]; Service: SALIVARY GLAND SURGERY Social [...] (Valtoco) 15 mg/2 spray (7.5/0.1mL x 2) [place] Instill 1 spray into each nostril as [...] and Studies reviewed: Invalid input(s): MAG AJ [facility] Work Phone: 1(109) 587-232511-15-2022 Physician Emergency department Note* Fernando Camacho MD - 07/14/2022 10:31 PM EST ED PROVIDER NOTE [facility] EMERGENCY DEPARTMENT NAME: Claudine Joseph AGE: 32 y.o. : 1990 VISIT DATE: 07/14/2022 CSN: [id number] PCP: Marielle Duque MD Chief Complaint Patient presents with baclofen pump exposed Patient is a 32-year-old female history of anoxic brain damage cerebral palsy epilepsy muscle spasticity presents with complaints of baclofen pump exposure. Patient and had a somewhat of a discoloredarea around the baclofen pump according to her parent and cabinet installer. But now is exposed here over the [...] disease Chronic osteomyelitis of pelvic region, right ([facility]) 2019 required right ischial debridement, followed by Dr. Noland of plastics Chronic respiratory failure with hypoxia ([facility]) 3 L NC, followed by Dr. Stephy Cisse and Dr. Amalia Terry Constipation COVID-19 06/2020 Epilepsy ([facility]) followed at [facility] neurology clinic GERD (gastroesophageal reflux disease) occasional vomiting with gagging MRSA (methicillin resistant Staphylococcus aureus) 04/2016 Bilateral lungs Muscle spasticity medically refractory and has baclofen pump since 1999, followed at [facility] neuro baclofen pump clinic Nonverbal Answers yes with very long blinks per adoptive parent PEG (percutaneous endoscopic gastrostomy) status ([facility]) Presence of intrathecal baclofen pump 1999 [...] RIGHT ISCHIUM; Surgeon: Rad Luque MD; Location: [facility] Main OR; Service: Orthopedic INSERTION PERCUTANEOUS ENDOSCOPIC GASTROSTOMY TUBE LAMINECTOMY DECOMP THORACIC MULTI LEVEL N/A 07/27/2016 Procedure: T1-2 THORACIC FUSION REVISION ; Surgeon: Kb Ramsey MD; [place] [facility] [place]; Service: REVISION PAIN PUMP N/A 07/27/2016 Procedure: BACLOFEN PUMP REPLACEMENT ; Surgeon: Kb Ramsey MD; Location[place] [facility] [place]; Service: SALIVARY GLAND SURGERY Family [...] (Valtoco) 15 mg/2 spray (7.5/0.1mL x 2) [place] Instill 1 spray into each nostril as [...] Type & Exclusions Fernando Camacho MD 07/14/222232 [facility] Work Phone: [phone] Emergency department Note* Nava Hung RN - 07/14/2022 10:20 PM EST Pt's mother reports her pump has been in place for about 5 years. There has been talk of replacing the pump shortly [id number] Emergency department Triage note* Amalia Benson RN - 07/14/2022 9:05 PM EST The pt wheeled to the triage desk with her mother and reports that the pt was turned on her side today and her baclofen pump became exposed. [id number] Telephone encounter Note* Telephone Encounter - Chacorta Ansari MA - 02/16/2022 2:20 PM EDT Robin Stevens called to get a refill on her epidiolex. Requested Prescriptions Pending Prescriptions Disp Refills cannabidioL (Epidiolex) 100 mg/mL Soln 250 mL 11 Si.5 mL (350 mg total) by G-tube route 2 (two) times a day . Formerly [id number] - [place], [place] - [address] [phone] [id number] Miscellaneous Notes* Telephone Encounter - Chacorta Ansari MA - 02/16/2022 2:20 PM EDT [facility] called to get a refill on her epidiolex. Requested Prescriptions Pending Prescriptions Disp Refills cannabidioL (Epidiolex) 100 mg/mL Soln 250 mL 11 Si.5 mL (350 mg total) by G-tube route 2 (two) times a day . Formerly [id number] - [place], [place] - [address] [phone] documented in this [id number] Nurse Note* Heather Cason RN - 12/22/2021 9:45 AM EDT PT Given discharge paperwork and reviewed per MD and nurse. [facility]one Sewer available.Diet and restrictions reviewed as well. Venous access removed no complications noted. Ok to d/c Anesthesia and procedural MD. Fall Prevention: Pt declines assistance from staff for dressing, family at bedside to assist. Call light in reach. Wheelchair available upon discharge. [facility] Nurse Surgical operation note* Heather Cason RN - 12/22/2021 9:45 AM EDT PT Given discharge paperwork and reviewed per MD and nurse. [facility]one Sewer available.Diet and restrictions reviewed as well. Venous access removed no complications noted. Ok to d/c Anesthesia and procedural MD. Fall Prevention: Pt declines assistance from staff for dressing, family at bedside to assist. Call light in reach. Wheelchair available upon discharge. [facility] History and physical note* Alex Velasco MD [...] using Monitored Anesthesia Care. Alex Velasco MD [facility] Work Phone: [phone]) 218-742004-25-2022 History and physical note* Alex Velasco MD - 12/22/2021 8:07 AM EDT ENDOSCOPIC PREPROCEDURE HISTORY AND PHYSICAL HISTORY OF PRESENT ILLNESS: Claudine Joseph is a 31 y.o. female seen in the preoprocedure area at [facility] END[facility]. The indication for endoscopic evaluation [...] Alex Velasco MD documented [facility] Telephone encounter Note* Telephone Encounter - Brandi Dominguez MA - 11/27/2021 1:30 PM EDT PT mother left VM on Rx line requesting refill. Orders as attached. Requested Prescriptions Pending Prescriptions Disp Refills diazePAM (Valtoco) 15 mg/2 spray (7.5/0.1mL x 2) [place] 8 each 5 Sig: Instill 1 spray into each nostril as needed (Seizures, may repeat times 1 in 4 hours) . diazePAM (VALIUM) 2 MG tablet 30 tablet 0 Si (three) tablets (6 mg total) by Per G Tube route daily as needed For seizures . [id number] Miscellaneous Notes* Telephone Encounter - Brandi Dominguez MA - 11/27/2021 1:30 PM EDT PT mother left VM on Rx line requesting refill. Orders as attached. Requested Prescriptions Pending Prescriptions Disp Refills diazePAM (Valtoco) 15 mg/2 spray (7.5/0.1mL x 2) [place] 8 each 5 Sig: Instill 1 spray into each nostril as needed (Seizures, may repeat times 1 in 4 hours) . diazePAM (VALIUM) 2 MG tablet 30 tablet 0 Si (three) tablets (6 mg total) by Per G Tube route daily as needed For seizures . documented in this [id number] Nurse Surgical operation note* Leeanne Gil RN - 11/17/2021 3:[address] Velasco at the bedside reviewing results to pt's mom, discharge instructions reviewed to pt's mom with no questions at this time. [facility]03-21-2022 Nurse Note* Leeanne Gil RN - 11/17/2021 3:[address] Velasco at the bedside reviewing results to pt's mom, discharge instructions reviewed to pt's mom with no questions at this time. documented [facility] this [facility]03-[facility]22 History and physical note* Alex Velasco MD [...] dextrose 5% premix IVPB, 400 mg, Intravenous, integrated circuit design engineer to Procedure,Alex Velasco MD ALLERGIES: Allergies Allergen [...] PEG using General Anesthesia. Alex Velasco MD [facility] Work Phone: 1(737) 934-307103-21-2022 History and physical note* Alex Velasco MD [...] dextrose 5% premix IVPB, 400 mg, Intravenous, integrated circuit design engineer to Procedure,Alex Velasco MD ALLERGIES: Allergies Allergen [...] Anesthesia. Alex Velasco MD documented [facility]03-[facility]-2022 Telephone encounter Note* Telephone Encounter - Yany Wright CNP - 10/31/2021 10:14 AM EST Already provided prescription 14 days ago. [id number] Miscellaneous Notes* Telephone Encounter - Yany Wright CNP - 10/31/2021 10:14 AM EST Already provided prescription 14 days ago. documented in this [id number] Miscellaneous Notes* Addendum Note - Falguni Curry [...] in a long time. Email sent to [facility] for update, Peg plans on being here on 08/21 for fill. * Telephone Encounter - Falguni Curry RN - 05/09/2021 12:50 PM EDT Received a voicemail from Jane at [facility] wanting to clarify if the patient will be a home fill or clinic fill. They also need the prescription and insurance information. Call back is [phone]. Call placed to Jane and spoke with [...] 05/09/2021 11:41 AM EDT Received call from [facility]. They need patient's Baclofen order. It did not e-scribe. Prescription pended to print. * Telephone Encounter - Elroy Lopez RN - 05/07/2021 9:13 AM EDT [facility] She wants to know if patient's refills will be in clinic or at home. Call back: [phone] This is handled. * Telephone Encounter - Falguni Curry RN - 05/07/2021 8:42 AM EDT Clinical information faxed to [facility], confirmation received. * Telephone Encounter - Falguni Curry RN - 05/01/2021 10:36 AM EDT Plan for patient to be referred to [facility] for pump care in home. documented in this [id number] Miscellaneous Notes* Addendum Note - Falguni Curry [...] in a long time. Email sent to [facility] for update, Peg plans on being here on 08/21 for fill. * Telephone Encounter - Falguni Curry RN - 05/09/2021 12:50 PM EDT Received a voicemail from Jane at [facility] wanting to clarify if the patient will be a home fill or clinic fill. They also need the prescription and insurance information. Call back is [phone]. Call placed to Jane and spoke with [...] 05/09/2021 11:41 AM EDT Received call from [facility]. They need patient's Baclofen order. It did not e-scribe. Prescription pended to print. * Telephone Encounter - Elroy Lopez RN - 05/07/2021 9:13 AM EDT Received call from Suzie MOTTA. She wants to know if patient's refills will be in clinic or at home. Call back: [phone] This is handled. * Telephone Encounter - Falguni Curry RN - 05/07/2021 8:42 AM EDT Clinical information faxed to [facility], confirmation received. * Telephone Encounter - Falguni Curry RN - 05/01/2021 10:36 AM EDT Plan for patient to be referred to [facility] for pump care in home. documented in this [id number] Instructions* Patient Instructions* Donna Brush CNP - 08/21/2021 1:18 PM EST First Medication Brand: lioresal Concentration: 2000 mcg/mL Total Daily Dose: 649.8 mcg/day 1. Pump Programming: Simple Continuous 2. Pump Robertson Refill: The injection site was prepped sterilely, landmarks were identified, and the pump was accessed with a coring needle. Approximately 4 ml (operating systems programmer stated 3.6 ml) cc of clear, colorless [...] reservoir refill date: 08/21/21 6. Pump Low Robertson Alarm Date: 12/15/21 documented in this [id number] History of Present illness Narrative* Donna Brush, ACTIVITIES ATTENDANT - 08/21/2021 1:17 PM EST [facility] Spasticity Clinic: Intrathecal Baclofen Therapy Progress Note 08/21/2021 CHIEF COMPLAINT Spasticity follow up from 04/2021 CONTEMOPORARY HISTORY Claudine presents to clinic with her mother Peg. spacticity remains unchanged. She states that thewound on her bottom continues to improve. At last visit, there was interest in pursuing in home refills. There was a call from [facility] shortly after this appt that mother declined their services; however today she states that this was not accurate information and she does want in home refills. Claudine used to get in home refills in the past with success. OTHER RELEVANT HISTORY [facility] ROS - 08/21/21 1244 General Change in [...] pulmonary, Bowel and bladder incontinence, Cerebral palsy ([facility]), Chronic kidney disease, Chronic osteomyelitis of pelvic region, right (HCC) (2018), Chronic respiratory failure with hypoxia (HCC), Constipation, Epilepsy ([facility]), GERD (gastroesophageal reflux disease),MRSA (methicillin resistant Staphylococcus aureus) (04/2016), Muscle spasticity, Nonverbal, PEG (percutaneous endoscopic gastrostomy) status ([facility]), Presence of intrathecal baclofen pump (1999), [...] CP Implanted: by Dr. Roxy RENE date: 21months 03/2023 Synchromed I IPump Size: 40 mL [place] Location: 11 Catheter Tip Placement: PLAN REGARDING INTRATHECAL BACLOFEN THERAPY First Medication Brand: lioresal Concentration: 2000 mcg/mL Total Daily Dose: 649.8 mcg/day 1. Pump Programming: Simple Continuous 2. Pump Robertson Refill: The injection site was prepped sterilely, landmarks were identified, and the pump was accessed with a coring needle. Approximately 4 ml (operating systems programmer stated 3.6 ml) cc of clear, colorless [...] reservoir refill date: 08/21/21 6. Pump Low Robertson Alarm Date: 12/15/21 7. Claudine Joseph and/or [...] I also recommend that she keep her MedRemitly identification card with our clinic contact information at all times. 4. The [facility] Spasticity Team can be reached for emergencies and after hours by calling the [facility] at [phone]. 5. Will work on getting the referral [...] reservoir through the catheter. Using an external operating systems programmer, your treatment team can make adjustments in [...] be arranged to be done by aMedtronic Instrument Calibrator if scheduled during business hours. We recommend [...] savings time after being interrogated by a operating systems programmer. The flex/bolus dosing patient should schedule a [...] me with questions or concerns. Sincerely, Donna Brush, ACTIVITIES ATTENDANT Certified Nurse Practitioner [facility] Neurology- Multiple Sclerosis [address] [email or web address] documented in this [id number] Miscellaneous Notes* Telephone Encounter - Falguni Curry RN - 08/19/2021 9:02 AM EST Called and spoke with patients' mother and they haven't heard anything about refills at home. AD 08/25. She would love to have refills in the home but haven't heard anything in a long time. Email sent to [facility] for update, Peg plans on being here on 08/21 for fill. * Telephone Encounter - Falguni Curry RN - 05/09/2021 12:50 PM EDT Received a voicemail from Jane at [facility] wanting to clarify if the patient will be a home fill or clinic fill. They also need the prescription and insurance information. Call back is [phone]. Call placed to Jane and spoke with [...] 05/09/2021 11:41 AM EDT Received call from [facility]. They need patient's Baclofen order. It did not e-scribe. Prescription pended to print. * Telephone Encounter - Elroy Lopez RN - 05/07/2021 9:13 AM EDT [facility] She wants to know if patient's refills will be in clinic or at home. Call back: [phone] This is handled. * Telephone Encounter - Falguni Curry RN - 05/07/2021 8:42 AM EDT Clinical information faxed to [facility], confirmation received. * Telephone Encounter - Falguni Curry RN - 05/01/2021 10:36 AM EDT Plan for patient to be referred to [facility] for pump care in home. documented in this [id number] History of Present illness Narrative* Amaris Dunne RN - 08/05/2021 2:26 PM EST Medicaid is requesting the number of seizures weekly/monthly for Helenrommaritza elizabeth ho. Per mom, pt will have one sz every morning which will be severe. Pt will have mild seizures later in the afternoon, but these are not daily. The afternoon events are mild and unpredictable in frequency. On average,pt will have around 14 events per week. Information faxed to [facility]. documented in this [id number] History of Present illness Narrative* Yany Wright CNP - 07/09/2021 3:28 PM EST error documented in this [id number] History of Present illness Narrative* Amaris Dunne RN - 07/08/2021 4:17 PM EST After making multiple calls to different providers/departments, with [facility] and [facility], to see who can help with repairing Que-Camejo button, I faxed referral form to [facility] for Gastroenterology. Fax confirmation received. Called [facility] to expedite request, as stated on form and spoke with Nicole. documented in this [id number] Instructions* Patient Instructions* Curtis Harrell DO - 06/20/2021 2:02 PM EDT Summary of Visit Recommedations: We will complete the documentation for your wheelchair required by your insurance company. Thank you for visiting the [facility] today. Please let us know if you have any additional questions or concerns. [facility] Main Line: [phone] documented in this [id number] History of Present illness Narrative* Curtis Harrell DO - 06/20/2021 12:32 PM EDT Images from the original note were not included. Mobility Clinic Note [facility] 06/20/2021 Patient Identification Claudine Joseph [...] medically necessary based on my evaluation today. DO AMANDEEP BurrA [facility] - Medical Spine Physical Medicine and Rehabilitation Ambulatory status: non-ambulatory Past Medical History: Diagnosis Date Acute respiratory failure (HCC) Due to MRSA pneumonia 04/2016; Allergic rhinitis Anoxic brain damage (HCC) Aspiration, chronic pulmonary Bowel and bladder incontinence Cerebral palsy (HCC) Chronic kidney disease Chronic osteomyelitis of pelvic region, right ([facility]) 2019 required right ischial debridement, followed by Dr. Noland of plastics Chronic respiratory failure with hypoxia ([facility]) 3 L NC, followed by Dr. Stephy Cisse and Dr. 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 baclofen pump since 1999, followed at [facility] neuro baclofen pump clinic Nonverbal Answers yes with very long blinks per adoptive parent PEG (percutaneous endoscopic gastrostomy) status ([facility]) Presence of intrathecal baclofen pump 1999 [...] RIGHT ISCHIUM; Surgeon: Rad Luque MD; Location: [facility] Main OR; Service: Orthopedic INSERTION PERCUTANEOUS ENDOSCOPIC GASTROSTOMY TUBE LAMINECTOMY DECOMP THORACIC MULTI LEVEL N/A 07/27/2016 Procedure: T1-2 THORACIC FUSION REVISION ; Surgeon: Kb Ramsey MD; [place] [facility] [place]; Service: REVISION PAIN PUMP N/A 07/27/2016 Procedure: BACLOFEN PUMP REPLACEMENT ; Surgeon: Kb Ramsey MD; Location: [facility] [place]; Service: SALIVARY GLAND SURGERY Family [...] (Valtoco) 15 mg/2 spray (7.5/0.1mL x 2) [place] Instill 1 spray into each nostril as [...] lab results and radiological results available within [facility] today including EDnotes from February, wound care note from February, [place] clinic note from December. Assessment: 1. Cerebral palsy, unspecified type (HCC) Ambulatory Ref to [facility] (PT/OT/ST) 2. Stage II pressure ulcer of right buttock (HCC) Ambulatory Ref to [facility] (PT/OT/ST) * Sisi Wills, PT - 06/20/2021 12:15 PM EDT OT/PT Wheelchair and Seating Clinic Evaluation Name: Claudine Joseph Address: [address] [place] [id number] Date of : 1990 Date of Initial Evaluation: 06/20/2021 Referring Physician: Cynthia Chan CNP Wheelchair Clinic Physician: Sharri Funding: Medicaid Vendor: KAREN Jolly MEDICAL HISTORY: Height: 53 inches Weight: 85lbs Diagnosis: Encounter Diagnoses Name Primary? Cerebral palsy, unspecified type ([facility]) Stage II pressure ulcer of right buttock ([facility]) Past Medical History: Past Medical History: Diagnosis Date Acute respiratory failure ([facility]) Due to MRSA pneumonia 04/2016; Allergic rhinitis Anoxic brain damage ([facility]) Aspiration, chronic pulmonary Bowel and bladder incontinence Cerebral palsy ([facility]) Chronic kidney disease Chronic osteomyelitis of pelvic region, right ([facility]) 2019 required right ischial debridement, followed by Dr. Noland of plastics Chronic respiratory failure with hypoxia ([facility]) 3 L NC, followed by Dr. Stephy Cisse and Dr. 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 baclofen pump since 1999, followed at [facility] neuro baclofen pump clinic Nonverbal Answers yes with very long blinks per adoptive parent PEG (percutaneous endoscopic gastrostomy) status ([facility]) Presence of intrathecal baclofen pump 1999 [...] RIGHT ISCHIUM; Surgeon: Rad Luque MD; Location: [facility] Main OR; Service: Orthopedic INSERTION PERCUTANEOUS ENDOSCOPIC GASTROSTOMY TUBE LAMINECTOMY DECOMP THORACIC MULTI LEVEL N/A 07/27/2016 Procedure: T1-2 THORACIC FUSION REVISION ; Surgeon: Kb Ramsey MD; [place] [facility] [place]; Service: REVISION PAIN PUMP N/A 07/27/2016 Procedure: BACLOFEN PUMP REPLACEMENT ; Surgeon: Kb Ramsey MD; Location: [facility] [place]; Service: SALIVARY GLAND SURGERY Planned [...] meet her needs. Claudine Joseph is a waste hand wheelchair user and this wheelchair will be [...] DPT, WCS, OnCS License #: State License, [id number] Physician: I have read and concur with the above assessment. Face to face date: Physician Signature: Date: Physician Name: . UPIN #: By Vendor: I attest that the Licensed/ Certified Medical Practitioners that have done this evaluation are not employed or compensated in any way by our company. Company Name: Signature: Date: documented in this [id number] Instructions* Patient Instructions* Yany Wright CNP - 06/18/2021 1:52 PM EDT Call or [...] prescription to your pharmacy. documented in this [id number] History of Present illness Narrative* Yany Wright CNP - 06/18/2021 1:14 PM EDT NEUROLOGY Office Visit [facility] [address], [address] [place] [address] (office) / [phone] (fax) Patient Name: Claudine Joseph : 1990 MR #: [id number] Date of Neurology Follow-up: 06/26/21 Name of Provider: Yany Wright, LUBE MAN, ACTIVITIES ATTENDANT Other Physicians: Colette Goode MD (Primary Care [...] Reports had peg tube placed initially at [facility]. Reports Claudine and Mom had COVID-19 in [...] work instantly but did not help long term care pharmacist. Reports valium works better. Notes prior reported on O[facility]. Reports baclofen pump and following with [place] [...] 10. Seizure Risk Factors: Head trauma No LUBE MAN Infections No Stroke/IPH No Family history Unknown Gestational, Delivery, or Developmental Abnormalities Cerebral anoxia at . Febrile seizures Unknown. Prior workup: MRI- was completed but report was not available today EEG- From [facility] 1999 Álvaro, Generalized, Maximum bifrontal, 2001 Intermittent [...] Generalized edema Sepsis (HCC) Sacral decubitus ulcer Charlotte-Gastaut syndrome (HCC) Pneumonia Aspiration pneumonia (HCC) UTI [...] (Valtoco) 15 mg/2 spray (7.5/0.1mL x 2) [place] Instill 1 spray into each nostril as [...] a 31 y.o. female with: 1. 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 - Follows with Backend Python Developer. Thanks once again for involving our practice in [facility]. As always, it is a pleasure to participate in the care of your patients, and we remain available to any of your patients who would benefit from timely neurological evaluation. Sincerely, Yany Wright LUBE MAN, ACTIVITIES ATTENDANT Epilepsy Clinic, Epilepsy Monitoring Unit [facility] documented in this [id number] Miscellaneous Notes* Telephone Encounter - Julia Deshpande CMA - 05/15/2021 10:38 AM EDT Patient's mother called and requested that this refill go to [facility]. [facility]. Requested Prescriptions Pending Prescriptions Disp Refills diazePAM (Valtoco) 15 mg/2 spray (7.5/0.1mL x 2) [place] 8 each 5 Sig: Instill 1 spray into each nostril as needed (Seizures, may repeat times 1 in 4 hours) . [facility] [place] [address] documented in this [id number] Miscellaneous Notes* Telephone Encounter - Falguni Curry RN - 05/09/2021 12:50 PM EDT Received a voicemail from Jane at [facility] wanting to clarify if the patient will be a home fill or clinic fill. They also need the prescription and insurance information. Call back is [phone]. Call placed to Jane and spoke with [...] 05/09/2021 11:41 AM EDT Received call from [facility]. They need patient's Baclofen order. It did not e-scribe. Prescription pended to print. * Telephone Encounter - Elroy Lopez RN - 05/07/2021 9:13 AM EDT [facility] She wants to know if patient's refills will be in clinic or at home. Call back: [phone] This is handled. * Telephone Encounter - Falguni Curry RN - 05/07/2021 8:42 AM EDT Clinical information faxed to [facility], confirmation received. * Telephone Encounter - Falguni Curry RN - 05/01/2021 10:36 AM EDT Plan for patient to be referred to [facility] for pump care in home. documented in this [id number] Miscellaneous Notes* Telephone Encounter - Falguni Curry RN - 05/09/2021 12:50 PM EDT Received a voicemail from Jane at [facility] wanting to clarify if the patient will be a home fill or clinic fill. They also need the prescription and insurance information. Call back is [phone]. Call placed to Jane and spoke with [...] 05/09/2021 11:41 AM EDT Received call from [facility]. They need patient's Baclofen order. It did not e-scribe. Prescription pended to print. * Telephone Encounter - Elroy Lopez RN - 05/07/2021 9:13 AM EDT Received call from Suzie MOTTA. She wants to know if patient's refills will be in clinic or at home. Call back: [phone] This is handled. * Telephone Encounter - Falguni Curry RN - 05/07/2021 8:42 AM EDT Clinical information faxed to ÁNGELA, aria received. * Telephone Encounter - Falguni Curry RN - 05/01/2021 10:36 AM EDT Plan for patient to be referred to [facility] for pump care in home. documented in this [id number] Miscellaneous Notes* Addendum Note - Ruma Godwin CNP - 05/09/2021 12:04 PM EDT Addended by: RUMA GODWIN on: 05/09/2021 12:04 PM Modules accepted: Orders * Addendum Note - Elroy Lopez RN - 05/09/2021 11:43 AM EDT Addended by: ELROY LOPEZ on: 05/09/2021 11:43 AM Modules accepted: Orders * Telephone Encounter - Elroy Lopez RN - 05/09/2021 11:41 AM EDT Received call from [facility]. They need patient's Baclofen order. It did not e-scribe. Prescription pended to print. * Telephone Encounter - Elroy Lopez RN - 05/07/2021 9:13 AM EDT Received call from Suzie MOTTA. She wants to know if patient's refills will be in clinic or at home. Call back: [phone] This is handled. * Telephone Encounter - Falguni Curry RN - 05/07/2021 8:42 AM EDT Clinical information faxed to ÁNGELA, aria received. * Telephone Encounter - Falguni Curry RN - 05/01/2021 10:36 AM EDT Plan for patient to be referred to [facility] for pump care in home. documented in this [id number] Miscellaneous Notes* Addendum Note - Elroy Lopez RN - 05/09/2021 11:43 AM EDT Addended by: ELROY LOPEZ on: 05/09/2021 11:43 AM Modules accepted: Orders * Telephone Encounter - Elroy Lopez RN - 05/09/2021 11:41 AM EDT Received call from [facility]. They need patient's Baclofen order. It did not e-scribe. Prescription pended to print. * Telephone Encounter - Elroy Lopez RN - 05/07/2021 9:13 AM EDT Received call from Suzie MOTTA. She wants to know if patient's refills will be in clinic or at home. Call back: [phone] This is handled. * Telephone Encounter - Falguni Curry RN - 05/07/2021 8:42 AM EDT Clinical information faxed to [facility], confirmation received. * Telephone Encounter - Falguni Curry RN - 05/01/2021 10:36 AM EDT Plan for patient to be referred to [facility] for pump care in home. documented in this [id number] Miscellaneous Notes* Telephone Encounter - Adrienne Anderson CMA - 05/07/2021 12:08 PM EDT [facility] is not showing the last fill of this. Dr. Talbert, The pharmacy reports that her last dosage was 3.2 ml/BID. Please advise. Thank you. documented in this [id number] History of Present illness Narrative* Ruma BarrosoYe Godwin, ACTIVITIES ATTENDANT - 05/01/2021 10:45 AM EDT [facility] Sclerosis [...] refills. OTHER RELEVANT HISTORY [facility] ROS - 05/01/21 1011 General Change in weight [...] past medical history of Acute respiratory failure ([facility]), Allergic rhinitis, Anoxic brain damage ([facility]), Aspiration, chronic pulmonary, Bowel and bladder incontinence, Cerebral palsy ([facility]), Chronic kidney disease, Chronic osteomyelitis of pelvic region, right ([facility]) (2018), Chronic respiratory failure with hypoxia ([facility]), Constipation, Epilepsy ([facility]), GERD (gastroesophageal reflux disease),MRSA (methicillin resistant Staphylococcus aureus) (04/2016), Muscle spasticity, Nonverbal, PEG (percutaneous endoscopic gastrostomy) status ([facility]), Presence of intrathecal baclofen pump (1999), [...] 2023) Synchromed I IPump Size: 40 mL [place] Location: 11 oclock Catheter Tip Placement: PLAN REGARDING INTRATHECAL BACLOFEN THERAPY First Medication Brand: LIORESAL Concentration: 2000 mcg/mL Total Daily Dose: 649.8 mcg/day 1. Pump Programming: Simple Continuous 2. Pump Robertson Refill: The injection site was prepped sterilely, [...] reservoir refill date: 05/01/21 6. Pump Low Robertson Alarm Date: 08/25/21 7. Claudine Joseph and/or [...] I also recommend that she keep her MedRemitly identification card with our clinic contact information at all times. 4. [facility] Spasticity Team can be reached for emergencies and after hours by calling the [facility] at PATIENT AND CARE PROVIDER [...] reservoir through the catheter. Using an external operating systems programmer, your treatment team can make adjustments in [...] be arranged to be done by aMedtronic Instrument Calibrator if scheduled during business hours. We recommend [...] savings time after being interrogated by a operating systems programmer. The flex/bolus dosing patient should schedule a [...] BSN, ACNP-BC, CNRN Acute Care Nurse Practitioner [facility] S[facility] [place] [address] [place] [address], [address] [place] [address] Office [phone] documented in this [id number] Instructions* Patient Instructions* Ruma Godwin CNP - 05/01/2021 10:42 AM EDT INTRATHECAL BACLOFEN SYSTEM INFORMATION FOR Claudine Joseph Severe Spasticity due to: CP Implanted: [address] Roxy RENE date: 23 months (March 2023) Synchromed I IPump Size: 40 mL [place] Location: 11 oclock Catheter Tip Placement: PLAN REGARDING INTRATHECAL BACLOFEN THERAPY First Medication Brand: LIORESAL Concentration: 2000 mcg/mL Total Daily Dose: 649.8 mcg/day 1. Pump Programming: Simple Continuous 2. Pump Robertson Refill: The injection site was prepped sterilely, [...] reservoir refill date: 05/01/21 6. Pump Low Robertson Alarm Date: 08/25/21 7. Claudine Joseph and/or [...] I also recommend that she keep her MedRemitly identification card with our clinic contact information at all times. 4. [facility] Spasticity Team can be reached for emergencies and after hours by calling the [facility] at PATIENT AND CARE PROVIDER [...] reservoir through the catheter. Using an external operating systems programmer, your treatment team can make adjustments in [...] be arranged to be done by aMedtronic Instrument Calibrator if scheduled during business hours. We recommend [...] savings time after being interrogated by a operating systems programmer. The flex/bolus dosing patient should schedule a [...] BSN, ACNP-BC, CNRN Acute Care Nurse Practitioner [facility] [address] [place] [address], [address] [place] [address] Office [phone] documented in this [id number] Miscellaneous Notes* Telephone Encounter - Ila Muñiz MA - 04/30/2021 1:15 PM EDT Mom informed * Telephone Encounter - Ila Muñiz MA - 04/29/2021 9:36 AM EDT Received message from Peg (mom )on Rx line requesting medication refills to be sent to pharmacy *[facility] - [place], [place] - [address] [phone] Mom states that she love this medication , that it has a great response to Claudine and her seizures Orders Entered Requested Prescriptions Pending Prescriptions Disp Refills diazePAM (Valtoco) 15 mg/2 spray (7.5/0.1mL x 2) [place] 8 each 5 Sig: Instill 1 spray into each nostril as needed (Seizures, may repeat times 1 in 4 hours) . documented in this [id number] History of Present illness Narrative* Wilder Noland MD - 02/27/2021 11:49 AM EDT Images from the original note were not included. OFFICE CONSULT Patient Name: Claudine Joseph MR #: [id number] : 1990 Referring Physician: No ref. provider [...] to see her in this regard. Her cabinet installer states that there are no fever or chills, and drainage is minimal. History: Past Medical History: Diagnosis Date Acute respiratory failure (HCC) Due to MRSA pneumonia 04/2016; Allergic rhinitis Anoxic brain damage (HCC) Aspiration, chronic pulmonary Bowel and bladder incontinence Cerebral palsy ([facility]) Chronic kidney disease Chronic osteomyelitis of pelvic region, right ([facility]) 2019 required right ischial debridement, followed by Dr. Noland of plastics Chronic respiratory failure with hypoxia ([facility]) 3 L NC, followed by Dr. Stephy Cisse and Dr. 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 baclofen pump since 1999, followed at [facility] neuro baclofen pump clinic Nonverbal Answers yes with very long blinks per adoptive parent PEG (percutaneous endoscopic gastrostomy) status ([facility]) Presence of intrathecal baclofen pump 1999 [...] RIGHT ISCHIUM; Surgeon: Rad Luque MD; Location: [facility] Main OR; Service: Orthopedic LAMINECTOMY DECOMP THORACIC MULTI LEVEL N/A 07/27/2016 Procedure: T1-2 THORACIC FUSION REVISION ; Surgeon: Kb Ramsey MD; [place] [facility] [place]; Service: PEG TUBE INSERTION REVISION PAIN PUMP N/A 07/27/2016 Procedure: BACLOFEN PUMP REPLACEMENT ; Surgeon: Kb Ramsey MD; Location: [facility] [place]; Service: SALIVARY GLAND SURGERY Family [...] Social Gatherings with Friends and Family: Attends Caodaism Services: Active Member of Clubs or Organizations: Attends Club or Organization Meetings: Marital Status: Allergy Information: I have reviewed the patient's allergies. Levaquin [levofloxacin], Augmentin [amoxicillin-pot clavulanate], Lactose intolerance [lactase], Penicillins, and Ragweed Home Medications: Claudine Joseph Home Medication Instructions Prior to Surgery SADIE: Printed on:02/27/21 6323 Medication Information Take last dose on Take [...] (Valtoco) 15 mg/2 spray (7.5/0.1mL x 2) [place] Instill 1 spray into each nostril as [...] normal. Judgment: Judgment normal. documented in this [id number] History of Present illness Narrative* Werner Kaplan [...] NOTE Patient Name: Claudine Joseph MR #: [id number] : 1990 Referring Physician: No ref. provider [...] Medical History: Diagnosis Date Acute respiratory failure ([facility]) Due to MRSA pneumonia 04/2016; Allergic rhinitis Anoxic brain damage ([facility]) Aspiration, chronic pulmonary Bowel and bladder incontinence Cerebral palsy ([facility]) Chronic kidney disease Chronic osteomyelitis of pelvic region, right ([facility]) 2019 required right ischial debridement, followed by Dr. Noland of plastics Chronic respiratory failure with hypoxia ([facility]) 3 L NC, followed by Dr. Stephy Cisse and Dr. 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 baclofen pump since 1999, followed at [facility] neuro baclofen pump clinic Nonverbal Answers yes with very long blinks per adoptive parent PEG (percutaneous endoscopic gastrostomy) status ([facility]) Presence of intrathecal baclofen pump 1999 [...] RIGHT ISCHIUM; Surgeon: Rad Luque MD; Location: [facility] Main OR; Service: Orthopedic LAMINECTOMY DECOMP THORACIC MULTI LEVEL N/A 07/27/2016 Procedure: T1-2 THORACIC FUSION REVISION ; Surgeon: Kb Ramsey MD; [place] [facility] [place]; Service: PEG TUBE INSERTION REVISION PAIN PUMP N/A 07/27/2016 Procedure: BACLOFEN PUMP REPLACEMENT ; Surgeon: Kb Ramsey MD; Location: [facility] [place]; Service: SALIVARY GLAND SURGERY I [...] Social Gatherings with Friends and Family: Attends Caodaism Services: Active Member of Clubs or Organizations: Attends Club or Organization Meetings: Marital Status: Allergy Information: I have reviewed the patient's allergies. Levaquin [levofloxacin], Augmentin [amoxicillin-pot clavulanate], Lactose intolerance [lactase], Penicillins, and Ragweed Home Medications: Claudine Joseph Home Medication Instructions Prior to Surgery SADIE:[id number] Printed on:02/10/21 9443 Medication Information Take last dose on Take [...] (Valtoco) 15 mg/2 spray (7.5/0.1mL x 2) [place] Instill 1 spray into each nostril as [...] future. She is due to see Dr. Doc Salgado urologist, to be evaluated for suprabupic [...] 6 months or so. documented in this [id number] Instructions* Patient Instructions* William Garg RN - [...] EQUIVALENT): Aquacel Ag 3/4 ribbon Cover with [place] border Change every day May change outer dressing if it becomes soiled or saturated Aquacel ag and dry dressing in clinic today Per Verbal Order Read Back Roho cushion has been ordered. Supplies We have sent your supply order to the following company: [employer]: [phone] If you don't receive the items you [...] If the bleeding does not stop, call [facility] [phone] or go to the Emergency Room. Signs/Symptoms of Infection: If you have any fever, chills, nausea, vomiting or increased odor, drainage, pain or redness to thewound, call [facility] at [phone]. If after hours, contact your family physician [...] wherever you are sitting. documented in this [id number] History of Present illness Narrative* Wilder Cross DO - 02/06/2021 2:50 PM EDT Subjective: Claudine Joseph is a 30 y.o. female presenting with caregiver related to ischial ulcer. This has been present for years and has been cared for by several surgeons at varying locations. Mostrecently seen by Dr Kapaln who was recommending SP tube and colostomy [...] and elects to proceed. documented in this [id number] History of Present illness Narrative* Wilder Cross [...] and elects to proceed. documented in this [id number] History of Present illness Narrative* Werner Kaplan Jr., MD - 01/20/2021 1:32 PM EDT CONSULT NOTE Patient Name: Claudine Joseph MR #: [id number] : 1990 Referring Physician: Marielle Duque* Physicians: [...] pneumonia 04/2016; Allergic rhinitis Anoxic brain damage ([facility]) Aspiration, chronic pulmonary Bowel and bladder incontinence Cerebral palsy ([facility]) Chronic kidney disease Chronic osteomyelitis of pelvic region, right ([facility]) 2019 required right ischial debridement, followed by Dr. Noland of plastics Chronic respiratory failure with hypoxia ([facility]) 3 L NC, followed by Dr. Stephy Cisse and Dr. 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 baclofen pump since 1999, followed at [facility] neuro baclofen pump clinic Nonverbal Answers yes with very long blinks per adoptive parent PEG (percutaneous endoscopic gastrostomy) status ([facility]) Presence of intrathecal baclofen pump 1999 [...] RIGHT ISCHIUM; Surgeon: Rad Luque MD; Location: [facility] Main OR; Service: Orthopedic LAMINECTOMY DECOMP THORACIC MULTI LEVEL N/A 07/27/2016 Procedure: T1-2 THORACIC FUSION REVISION ; Surgeon: Kb Ramsey MD; [place] [facility] [place]; Service: PEG TUBE INSERTION REVISION PAIN PUMP N/A 07/27/2016 Procedure: BACLOFEN PUMP REPLACEMENT ; Surgeon: Kb Ramsey MD; Location: [facility] [place]; Service: SALIVARY GLAND SURGERY I [...] Social Gatherings with Friends and Family: Attends Caodaism Services: Active Member of Clubs or Organizations: Attends Club or Organization Meetings: Marital Status: Allergy Information: I have reviewed the patient's allergies. Levaquin [levofloxacin], Augmentin [amoxicillin-pot clavulanate], Lactose intolerance [lactase], Penicillins, and Ragweed Home Medications: Claudine Joseph Home Medication Instructions Prior to Surgery SADIE:[id number] Printed on:01/20/21 1333 Medication Information Take last dose on Take [...] (Valtoco) 15 mg/2 spray (7.5/0.1mL x 2) [place] Instill 1 spray into each nostril as [...] Cross general surgeon, for ostomy; and Dr. Doc Salgado urologist, to be evaluated for suprabupic [...] ostomy and suprapubic catheter. documented in this [id number] Instructions* Patient Instructions* Kelly Enriquez RN - 01/13/2021 3:24 PM EDT The [...] If the bleeding does not stop, call [facility] [phone] or go to the Emergency Room. Signs/Symptoms of Infection: If you have any fever, chills, nausea, vomiting or increased odor, drainage, pain or [facility] [place], call [facility] at [phone]. If after hours, contact your family physician [...] wherever you are sitting. documented in this [id number] Instructions* Patient Instructions* Ruma Godwin, ACTIVITIES ATTENDANT - 01/09/2021 10:22 AM EDT INTRATHECAL BACLOFEN SYSTEM INFORMATION FOR Claudine Joseph Severe Spasticity due to: CP Implanted: [address] Roxy RENE date: 28 months (March 2023) Synchromed I IPump Size: 40 mL [place] Location: 11 oclock Catheter Tip Placement: PLAN REGARDING INTRATHECAL BACLOFEN THERAPY First Medication Brand: LIORESAL Concentration: 2000 mcg/mL Total Daily Dose: 649.8 mcg/day 1. Pump Programming: Simple Continuous 2. Pump Robertson Refill: The injection site was prepped sterilely, [...] reservoir refill date: 01/09/21 6. Pump Low [place] Alarm Date: 05/05/21 7. Claudine Joseph and/or [...] I also recommend that she keep her MedRemitly identification card with our clinic contact information at all times. 4. [facility] Spasticity Team can be reached for emergencies and after hours by calling the [facility] at . PATIENT AND CARE [...] reservoir through the catheter. Using an external operating systems programmer, your treatment team can make adjustments in [...] be arranged to be done by aMedtronic Instrument Calibrator if scheduled during business hours. We recommend [...] savings time after being interrogated by a operating systems programmer. The flex/bolus dosing patient should schedule a [...] BSN, ACNP-BC, CNRN Acute Care Nurse Practitioner [facility] [address], [address] [place] [address] Office [phone] documented in this [id number] History of Present illness Narrative* Ruma Godwin [...] secondary to decubitus ulcer. OTHER RELEVANT HISTORY [facility] ROS - 01/09/21 0930 General Change in [...] spasticity, Nonverbal, PEG (percutaneous endoscopic gastrostomy) status ([facility]), Presence of intrathecal baclofen pump (1999), [...] 2023) Synchromed I IPump Size: 40 mL [place] Location: 11 oclock Catheter Tip Placement: PLAN REGARDING INTRATHECAL BACLOFEN THERAPY First Medication Brand: LIORESAL Concentration: 2000 mcg/mL Total Daily Dose: 649.8 mcg/day 1. Pump Programming: Simple Continuous 2. Pump Robertson Refill: The injection site was prepped sterilely, [...] reservoir refill date: 01/09/21 6. Pump Low Robertson Alarm Date: 05/05/21 7. Claudine Joseph and/or [...] I also recommend that she keep her MedRemitly identification card with our clinic contact information at all times. 4. [facility] Spasticity Team can be reached for emergencies and after hours by calling the [facility] at . PATIENT AND CARE [...] reservoir through the catheter. Using an external operating systems programmer, your treatment team can make adjustments in [...] an ITB refill/program adjustment. I recommend Claudine Sienadereck Joseph contactour office prompts if these symptoms [...] are also common. I recommend that Claudine Sienadereck Joseph go to the Emergency Department if [...] be arranged to be done by aMedtronic Instrument Calibrator if scheduled during business hours. We recommend [...] savings time after being interrogated by a operating systems programmer. The flex/bolus dosing patient should schedule a [...] BSN, ACNP-BC, CNRN Acute Care Nurse Practitioner [facility] [address], [address] [place] [address] Office [phone] documented [facility]* Diagnosis Spasticity- Primary Abnormal involuntary movements [facility] Diagnosis Restrictive lung disease due to kyphoscoliosis Aspiration, chronic pulmonary, initial encounter [facility]* Diagnosis Other cerebral palsy (HCC)- Primary Pressure injury of right ischium, stage 3 (HCC) Other urinary incontinence Incontinence of feces, unspecified fecal incontinence type [facility] Pressure injury of right ischium, stage 3 (HCC)- Primary [facility] Diagnosis Pressure injury of right ischium, stage 3 (HCC)- Primary Other cerebral palsy (HCC) Other urinary incontinence Incontinence of feces, unspecified fecal incontinence type Encounter to discuss [facility] Pressure injury of right ischium, stage 3 (HCC)- Primary Pressure injury of sacral region, stage 3 (HCC)- Primary [facility] Diagnosis Pressure injury of right ischium, stage 3 (HCC)- Primary Cerebral palsy, unspecified type (HCC)- Primary Stage II pressure ulcer of right buttock (HCC) [facility] Diagnosis Pressure injury of right ischium, stage 3 (HCC)- Primary Pressure injury of right ischium, stage 3 (HCC)- Primary [facility] Diagnosis Intractable symptomatic generalized epilepsy (HCC) [facility] Diagnosis Pressure injury of right ischium, stage 3 (HCC)- Primary Intractable symptomatic generalized epilepsy (HCC) [facility] Diagnosis Pressure injury of right ischium, stage 3 (HCC)- Primary Spasticity- Primary Abnormal involuntary movements [facility] Diagnosis Pressure injury of right ischium, 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[facility] Diagnosis Pressure injury of right ischium, 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)- Primary Unspecified infantile cerebral palsy [facility] Diagnosis Pressure injury of right ischium, 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)- Primary Unspecified infantile cerebral palsy [facility] Diagnosis Pressure injury of right ischium, 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)- Primary Unspecified infantile cerebral palsy [facility] Diagnosis Pressure injury of right ischium, [...] right ischium, stage 3 (HCC)- Primary 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) S/P percutaneous endoscopic gastrostomy (PEG) tube placement (HCC) Pain around percutaneous endoscopic gastrostomy (PEG) tube site, initial encounter Spasticity Abnormal involuntary movements Hypoxia [facility] Diagnosis 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) documented in [...] [facility] Diagnosis Intractable Reji-Gastaut syndrome without status epilepticus [...] Diagnosis 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) documented in [...] ulcer of ischial area, right, stage IV ([facility]) Sacral decubitus ulcer Pressure ulcer, lower back Intrathecal pump infection, initial encounter ([facility])- Primary Visit for wound check Presence of intrathecal baclofen pump Muscle spasticity Spasm of muscle 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 Seizure ([facility]) Other convulsions Intrathecal pump infection, initial encounter ([facility]) Breakdown (mechanical) of other nervous system device, implant or graft, sequela 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 S/P percutaneous endoscopic gastrostomy (PEG) tube placement ([facility]) Intractable symptomatic generalized epilepsy ([facility])- Primary [facility] Diagnosis Aspiration pneumonia, unspecified aspiration pneumonia type, unspecified laterality, unspecified part of lung (HCC) SIRS (systemic inflammatory response syndrome) ([facility]) Systemic inflammatory response syndrome, unspecified Acute respiratory failure with hypoxia ([facility]) Pneumonia of both lungs due to [...] ulcer of ischial area, right, stage IV ([facility]) Sacral decubitus ulcer Pressure ulcer, lower back Intrathecal pump infection, initial encounter ([facility])- Primary Visit for wound check Presence of intrathecal baclofen pump Muscle spasticity Spasm of muscle 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 Seizure ([facility]) Other convulsions Intrathecal pump infection, initial encounter ([facility]) Breakdown (mechanical) of other nervous system device, implant or graft, sequela 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 S/P percutaneous endoscopic gastrostomy (PEG) tube placement ([facility]) Seizure disorder ([facility]) Unspecified epilepsy without mention of intractable epilepsy documented in this encounter [facility]* Diagnosis Aspiration pneumonia, unspecified aspiration pneumonia type, unspecified laterality, unspecified part of lung ([facility]) SIRS (systemic inflammatory response syndrome) ([facility]) Systemic inflammatory response syndrome, unspecified Acute respiratory failure with hypoxia ([facility]) Pneumonia of both lungs due to infectious organism, unspecified part of lung Sinus tachycardia Other specified cardiac dysrhythmias Agitation requiring sedation protocol Cerebral palsy ([facility]) Unspecified infantile cerebral palsy Seizure disorder ([facility]) Unspecified epilepsy without mention of intractable [...] ulcer of ischial area, right, stage IV ([facility]) Sacral decubitus ulcer Pressure ulcer, lower back Intrathecal pump infection, initial encounter ([facility])- Primary Visit for wound check Presence of intrathecal baclofen pump Muscle spasticity Spasm of muscle 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 Seizure ([facility]) Other convulsions Intrathecal pump infection, initial encounter ([facility]) Breakdown (mechanical) of other nervous system device, implant or graft, sequela 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 S/P percutaneous endoscopic gastrostomy (PEG) tube placement ([facility]) Intractable symptomatic generalized epilepsy ([facility])- Primary 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 Acute on chronic respiratory failure with hypoxia and hypercapnia ([facility]) [facility] Diagnosis Aspiration pneumonia, unspecified aspiration pneumonia type, unspecified laterality, unspecified part of lung ([facility]) SIRS (systemic inflammatory response syndrome) ([facility]) Systemic inflammatory response syndrome, unspecified Acute respiratory failure with hypoxia ([facility]) Pneumonia of both lungs due to infectious organism, unspecified part of lung Sinus tachycardia Other specified cardiac dysrhythmias Agitation requiring sedation protocol Cerebral palsy ([facility]) Unspecified infantile cerebral palsy Seizure disorder ([facility]) Unspecified epilepsy without mention of intractable epilepsy Abdominal distention Flatulence, eructation, and gas pain Difficulty walking Difficulty in walking 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, unspecified Gastroesophageal reflux disease with esophagitis Artificial opening status 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HCC) Generalized 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 intractable epilepsy Muscle spasticity Spasm of muscle 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 Torticollis Torticollis, [...] ulcer of ischial area, right, stage IV ([facility]) Sacral decubitus ulcer Pressure ulcer, lower back Intrathecal pump infection, initial encounter ([facility])- Primary Visit for wound check Presence of intrathecal baclofen pump Muscle spasticity Spasm of muscle 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 Seizure ([facility]) Other convulsions Intrathecal pump infection, initial encounter ([facility]) Breakdown (mechanical) of other nervous system device, implant or graft, sequela 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 S/P percutaneous endoscopic gastrostomy (PEG) tube placement ([facility]) Intractable symptomatic generalized epilepsy ([facility])- Primary Seizure disorder ([facility]) Unspecified epilepsy without mention of intractable epilepsy Acute encephalopathy 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 Muscle spasticity Spasm of muscle Hypoxia [facility]oxemia [facility] Diagnosis Aspiration pneumonia, unspecified aspiration pneumonia type, unspecified laterality, unspecified part of lung ([facility]) SIRS (systemic inflammatory response syndrome) ([facility]) Systemic inflammatory response syndrome, unspecified Acute respiratory failure with hypoxia ([facility]) Pneumonia of both lungs due to infectious organism, unspecified part of lung Sinus tachycardia Other specified cardiac dysrhythmias Agitation requiring sedation protocol Cerebral palsy ([facility]) Unspecified infantile cerebral palsy Seizure disorder ([facility]) Unspecified epilepsy without mention of intractable epilepsy Abdominal distention Flatulence, eructation, and gas pain Difficulty walking Difficulty in walking 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, unspecified Gastroesophageal reflux disease with esophagitis Artificial opening status 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HCC) Generalized 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 intractable epilepsy Muscle spasticity Spasm of muscle 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 Torticollis Torticollis, unspecified Abdominal distention Flatulence, eructation, and gas pain 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[facility])- Primary Congenital quadriplegia Generalized convulsive epilepsy [...] ulcer of ischial area, right, stage IV ([facility]) Sacral decubitus ulcer Pressure ulcer, lower back Intrathecal pump infection, initial encounter ([facility])- Primary Visit for wound check Presence of intrathecal baclofen pump Muscle spasticity Spasm of muscle 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 Seizure ([facility]) Other convulsions Intrathecal pump infection, initial encounter ([facility]) Breakdown (mechanical) of other nervous system device, implant or graft, sequela 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 S/P percutaneous endoscopic gastrostomy (PEG) tube placement ([facility]) Spasticity- Primary Abnormal involuntary movements documented in this encounter [facility]* Diagnosis Aspiration pneumonia, unspecified aspiration pneumonia type, unspecified laterality, unspecified part of lung ([facility]) SIRS (systemic inflammatory response syndrome) ([facility]) Systemic inflammatory response syndrome, unspecified Acute respiratory failure with hypoxia ([facility]) Pneumonia of both lungs due to infectious organism, unspecified part of lung Sinus tachycardia Other specified cardiac dysrhythmias Agitation requiring sedation protocol Cerebral palsy ([facility]) Unspecified infantile cerebral palsy Seizure disorder ([facility]) Unspecified epilepsy without mention of intractable epilepsy Abdominal distention Flatulence, eructation, and gas pain Difficulty walking Difficulty in walking 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, unspecified Gastroesophageal reflux disease with esophagitis Artificial opening status 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 Muscle spasticity Spasm of muscle 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 Torticollis Torticollis, unspecified Abdominal distention Flatulence, eructation, and gas pain 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[facility])- Primary 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 Pneumonia due to infectious organism, unspecified laterality, unspecified part of lung Tachycardia- Primary Unspecified tachycardia Generalized edema Edema Sepsis, due to unspecified organism- Primary Hypernatremia Hyperosmolality and/or hypernatremia Acute UTI Urinary tract infection, site not specified Pressure injury of skin of sacral region, unspecified injury stage Decubitus ulcer of ischial area, right, stage IV ([facility]) Sacral decubitus ulcer Pressure ulcer, lower back Intrathecal pump infection, initial encounter ([facility])- Primary Visit for wound check Presence of intrathecal baclofen pump Muscle spasticity Spasm of muscle 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 Seizure ([facility]) Other convulsions Intrathecal pump infection, initial encounter ([facility]) Breakdown (mechanical) of other nervous system device, implant or graft, sequela 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 S/P percutaneous endoscopic gastrostomy (PEG) tube placement ([facility]) Spasticity [R25.2]- Primary Abnormal involuntary movements 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 documented in this encounter [facility]* Diagnosis Aspiration pneumonia, unspecified aspiration pneumonia type, unspecified laterality, unspecified part of lung ([facility]) SIRS (systemic inflammatory response syndrome) ([facility]) Systemic inflammatory response syndrome, unspecified Acute respiratory failure with hypoxia ([facility]) Pneumonia of both lungs due to infectious organism, unspecified part of lung Sinus tachycardia Other specified cardiac dysrhythmias Agitation requiring sedation protocol Cerebral palsy ([facility]) Unspecified infantile cerebral palsy Seizure disorder ([facility]) Unspecified epilepsy without mention of intractable epilepsy Abdominal distention Flatulence, eructation, and gas pain Difficulty walking Difficulty in walking 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, unspecified Gastroesophageal reflux disease with esophagitis Artificial opening status 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 Muscle spasticity Spasm of muscle 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 Torticollis Torticollis, unspecified Abdominal distention Flatulence, eructation, and gas pain 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[facility])- Primary 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 Pneumonia due to infectious organism, unspecified laterality, unspecified part of lung Tachycardia- Primary Unspecified tachycardia Generalized edema Edema Sepsis, due to unspecified organism- Primary Hypernatremia Hyperosmolality and/or hypernatremia Acute UTI Urinary tract infection, site not specified Pressure injury of skin of sacral region, unspecified injury stage Decubitus ulcer of ischial area, right, stage IV ([facility]) Sacral decubitus ulcer Pressure ulcer, lower back Intrathecal pump infection, initial encounter ([facility])- Primary Visit for wound check Presence of intrathecal baclofen pump Muscle spasticity Spasm of muscle 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 Seizure ([facility]) Other convulsions Intrathecal pump infection, initial encounter ([facility]) Breakdown (mechanical) of other nervous system device, implant or graft, sequela 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 S/P percutaneous endoscopic gastrostomy (PEG) tube placement ([facility]) Spasticity [R25.2]- Primary Abnormal involuntary movements 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 documented in this encounter [facility]* Diagnosis Aspiration pneumonia, unspecified aspiration pneumonia type, unspecified laterality, unspecified part of lung (HCC) SIRS (systemic inflammatory response syndrome) ([facility]) Systemic inflammatory response syndrome, unspecified Acute respiratory failure with hypoxia ([facility]) Pneumonia of both lungs due to infectious organism, unspecified part of lung Sinus tachycardia Other specified cardiac dysrhythmias Agitation requiring sedation protocol Cerebral palsy ([facility]) Unspecified infantile cerebral palsy Seizure disorder ([facility]) Unspecified epilepsy without mention of intractable epilepsy Abdominal distention Flatulence, eructation, and gas pain Difficulty walking Difficulty in walking 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, unspecified Gastroesophageal reflux disease with esophagitis Artificial opening status 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 Muscle spasticity Spasm of muscle 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 Torticollis Torticollis, unspecified Abdominal distention Flatulence, eructation, and gas pain 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[facility])- Primary 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 Pneumonia due to infectious organism, unspecified laterality, unspecified part of lung Tachycardia- Primary Unspecified tachycardia Generalized edema Edema Sepsis, due to unspecified organism- Primary Hypernatremia Hyperosmolality and/or hypernatremia Acute UTI Urinary tract infection, site not specified Pressure injury of skin of sacral region, unspecified injury stage Decubitus ulcer of ischial area, right, stage IV ([facility]) Sacral decubitus ulcer Pressure ulcer, lower back Intrathecal pump infection, initial encounter ([facility])- Primary Visit for wound check Presence of intrathecal baclofen pump Muscle spasticity Spasm of muscle 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 Seizure ([facility]) Other convulsions Intrathecal pump infection, initial encounter ([facility]) Breakdown (mechanical) of other nervous system device, implant or graft, sequela 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 S/P percutaneous endoscopic gastrostomy (PEG) tube placement (HCC) Intractable symptomatic generalized epilepsy (HCC) documented in this encounter [facility]* Diagnosis Aspiration pneumonia, unspecified aspiration pneumonia [...] spasticity Spasm of muscle 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 Torticollis Torticollis, unspecified Abdominal distention Flatulence, eructation, and gas pain 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[facility])- Primary Congenital quadriplegia Generalized convulsive epilepsy [...] ulcer of ischial area, right, stage IV ([facility]) Sacral decubitus ulcer Pressure ulcer, lower back Intrathecal pump infection, initial encounter ([facility])- Primary Visit for wound check Presence of intrathecal baclofen pump Muscle spasticity Spasm of muscle 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 Seizure ([facility]) Other convulsions Intrathecal pump infection, initial encounter ([facility]) Breakdown (mechanical) of other nervous system device, implant or graft, sequela 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 S/P percutaneous endoscopic gastrostomy (PEG) tube placement (HCC) Intractable symptomatic generalized epilepsy ([facility]) documented in this encounter [facility]* Diagnosis Aspiration pneumonia, unspecified aspiration pneumonia [...] ulcer of ischial area, right, stage IV ([facility]) Sacral decubitus ulcer Pressure ulcer, lower back Intrathecal pump infection, initial encounter (HCC)- Primary Visit for wound check Presence of intrathecal baclofen pump Muscle spasticity Spasm of muscle 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 Seizure ([facility]) Other convulsions Intrathecal pump infection, initial encounter ([facility]) Breakdown (mechanical) of other nervous system device, implant or graft, sequela 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HCC) Unspecified infantile cerebral palsy S/P percutaneous endoscopic gastrostomy (PEG) tube placement ([facility]) 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 [facility] Visit Details Visit Type -[facility] [address] t of Care Discipline -Jail Problems Problem Start Date Status Goals Interventions Assess and Instruct Home Visit Disciplines: Jail 07/22/2022 Active 1 goal linked to scheduled/documented intervention 4 goal interventions scheduled/documented in this visit Medication Management Disciplines: Jail 07/22/2022 Active 1 goal linked to scheduled/documented intervention 1 goal intervention scheduled/documented in this visit Pain Management Disciplines: Jail 07/22/2022 Active 1 goal linked to scheduled/documented intervention 1 goal intervention scheduled/documented in this visit IV Therapy Disciplines: Jail 07/22/2022 Active 1 goal linked to scheduled/documented [...] Goal:IV Therapy Completed Pt's mother is an CRAB FISHER and is able to demonstrate proper IV administration without difficulty. Instruct IV Therapy Problem:IV Therapy Goal:IV Therapy Completed Pt's mother is an CRAB FISHER and is able to demonstrate proper IV administration without difficulty. [facility]* Visit Details Visit Type -[facility] t of Care Discipline -Jail Problems Problem Start Date Status Goals Interventions Assess and Instruct Home Visit Disciplines: Jail 07/22/2022 Active 1 goal linked to scheduled/documented intervention 4 goal interventions scheduled/documented in this visit Medication Management Disciplines: Jail 07/22/2022 Active 1 goal linked to scheduled/documented intervention 1 goal intervention scheduled/documented in this visit Pain Management Disciplines: Jail 07/22/2022 Active 1 goal linked to scheduled/documented intervention 1 goal intervention scheduled/documented in this visit IV Therapy Disciplines: Jail 07/22/2022 Active 1 goal linked to scheduled/documented [...] Goal:IV Therapy Completed Pt's mother is an CRAB FISHER and is able to demonstrate proper IV administration without difficulty. Instruct IV Therapy Problem:IV Therapy Goal:IV Therapy Completed Pt's mother is an CRAB FISHER and is able to demonstrate proper IV administration without difficulty. [facility] Visit Details Visit Type - [facility] Disc harge Discipline -Jail Problems Problem Start Date Status Goals Interventions Assess and Instruct Home Visit Disciplines: Jail 07/22/2022 Resolved on 07/25/2022 1 goal linked to scheduled/documented intervention 4 goal interventions scheduled/documented in this visit Medication Management Disciplines: Jail 07/22/2022 Resolved on 07/25/2022 1 goal linked to scheduled/documented intervention 1 goal intervention scheduled/documented in this visit Pain Management Disciplines: Jail 07/22/2022 Resolved on 07/25/2022 1 goal linked to scheduled/documented intervention 1 goal intervention scheduled/documented in this visit IV Therapy Disciplines: Jail 07/22/2022 Resolved on 07/25/2022 1 goal linked [...] report, and fall preventative measures for safety advertising material distributor acknowledges understanding. Patient has been discharged from [facility]. Safety Problem:Assess and Instruct Home Visit Goal:Home Care Plan Completed Goals have been met. Pt is at her baseline. IV ATB have been completed and midline removed. Pt tolerated well. Reviewed medications purpose and side effects. Caregiver able to teach back and understands medications. Educated on S&S to report, and fall preventative measures for safety advertising material distributor acknowledges understanding. Patient has been discharged from [facility]iary. Discharge Planning Problem:Assess and Instruct Home Visit Goal:Home Care Plan Completed Goals have been met. IV ATB have been completed and midline removed. Pt tolerated well. Reviewed medications purpose and side effects. Caregiver able to teach back and understands medications. Educated on S&S to report, and fall preventative measures for safety advertising material distributor acknowledges understanding. Patient has been discharged from [facility]. Plan for Next Visit Problem:Assess and Instruct Home Visit Goal:Home Care Plan Completed Goals have been met. Pt is at her baseline. IV ATB have been completed and midline removed. Pt tolerated well. Reviewed medications purpose and side effects. Caregiver able to teach back and understands medications. Educated on S&S to report, and fall preventative measures for safety advertising material distributor acknowledges understanding. Patient has been discharged from [facility]. Instruct Medication Management Problem:Medication Management Goal:Medications Completed Goals have been met. Pt is at her baseline. IV ATB have been completed and midline removed. Pt tolerated well. Reviewed medications purpose and side effects. Caregiver able to teach back and understands medications. Educated on S&S to report, and fall preventative measures for safety advertising material distributor acknowledges understanding. Patient has been discharged from [facility]. Assess Pain Characteristics and Current Pain Regimen and Instruct Methods of Pain Relief Problem:Pain Management Goal:Pain Completed [facility] Actions Goals have been met. Pt is a t her baseline. IV ATB have been completed and midline removed. Pt tolerated well. Reviewed medications purpose and side effects. Caregiver able to teach back and understands medications. Educated on S&S to report, and fall preventative measures for safety advertising material distributor acknowledges understanding. Patient has been discharged from [facility]. documented in this encounter [facility] (narrative)No reason for referral information availableWLouis Stokes [facility] Work Phone: Reason for visit Narrative* Auth/Cert Specialty Diagnoses / Procedures Referred By Gera t Referred To Contact Referral ID Status Reason Start Date Expiration Date Visits Re quested Visits Authorized [id number] 1 1 [facility] Assessments Diagnosis Intractable symptomatic gene ralized epilepsy [...] Chronic respiratory failure with hypoxia and hypercapnia ([facility]) - Primary Restrictive lung disease due to kyphoscoliosis Aspiration, chronic pulmonar y, initial encounter Hypoxia Hypoxemia Tachycardia Unspecified tachycardia Diagnosis Spasticity - Primary Abnormal involuntary movements Diagnosis 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HCC) Unspecified infantile cerebral palsy Spasticity Abnormal involuntary movements Diagnosis Acute sinusitis, recurrence not specified, unspecified location- Primary Diagnosis Spasticity- Primary Abnormal involuntary movements Other cerebral palsy ([facility]) Diagnosis Sepsis, due to unspecified organism ([facility])- Primary Hypernatremia Hyperosmolality and/or hypernatremia Acute UTI Urinary tract infection, site not specified Pressure injury of skin of sacral region, unspecified injury stage Decubitus ulcer of ischial area, right, stage IV ([facility]) Sacral decubitus ulcer Pressure ulcer, lower back Diagnosis 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[facility]) - Primary Unspecified infantile cerebral palsy Intractable symptomatic gene ralized epilepsy ([facility]) Hypoxia Hypoxemia Diagnosis Wound healing, delayed Diagnosis Wound healing, delayed Diagnosis Spasticity- Primary Abnormal involuntary movements Diagnosis Sepsis, due to unspecified organism, unspecified whether acute organ dysfunction present ([facility]) Community acquired pneumonia, unspecified laterality Decubitus ulcer of ischial area, right, stage IV ([facility]) Acute on chronic respiratory failure with hypoxia and hypercapnia ([facility]) 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 Pneumonia Pneumonia, organism unspecified Diagnosis Spasticity Abnormal involuntary movements Diagnosis Severe sepsis ([facility]) Acute UTI Urinary tract infection, site not specified Dehydration Cerebral palsy, unspecified type ([facility]) Hypernatremia Hyperosmolality and/or hypernatremia Sepsis ([facility]) Diagnosis Occlusion of peripherally inserted central catheter (PICC) line, initial encounter ([facility]) Diagnosis Spasticity Abnormal involuntary movements 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 Diagnosis Sepsis, due to unspecified organism, unspecified whether acute organ dysfunction present ([facility]) Aspiration pneumonia, unspecified aspiration pneumonia type, unspecified laterality, unspecified part of lung ([facility]) Wound infection Posttraumatic wound infection not elsewhere classified Sage catheter in place Other postprocedural status Acute UTI Urinary tract infection, site not specified Diagnosis Spasticity- Primary Abnormal involuntary movements 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 Diagnosis Sacral wound, initial encounter- Primary 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 Roxy RENE date: 63 Synchromed I IPump Size: 40 mL [place] Location: 11 oclock Catheter Tip Placement: PLAN REGARDING INTRATHECAL BACLOFEN THERAPY First Medication Brand: LIORESAL Concentration: 2000 mcg/mL Total Daily Dose: 677.2 mcg/day 1. Pump Programming: Simple Continuous 2. Pump Robertson Refill: The injection site was prepped sterilely, [...] reservoir refill date: 01/07/18 6. Pump Low Robertson Alarm Date: 04/29/18 7. Claudine Joseph and/or [...] emergencies and after hours by calling the [facility] at PATIENT AND CARE PROVIDER [...] reservoir through the catheter. Using an external operating systems programmer, your treatment team can make adjustments in [...] be arranged to be done by aMedtronic Instrument Calibrator if scheduled during business hours. We recommend [...] savings time after being interrogated by a operating systems programmer. The flex/bolus dosing patient should schedule a [...] BSN, ACNP-BC, CNRN Acute Care Nurse Practitioner [facility] [address], [address] [place] [address] [email or web address] Office [phone] in this encounter* Patient Instructions - Sayra Ruma ChioYe, ROCKY - 09/17/2017 10:41 AM EST Formatting of this note may be different from the original. 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 Roxy RENE date: Synchromed I IPump Size: 40 mL [place] Location: 11 oclock Catheter Tip Placement: PLAN REGARDING INTRATHECAL BACLOFEN THERAPY First Medication Brand: LIORESAL Concentration: 2000 mcg/mL Total Daily Dose: 645.4 mcg/day 1. Pump Programming: Simple Continuous 2. Pump Robertson Refill: The injection site was prepped sterilely, [...] reservoir refill date: 09/17/17 6. Pump Low [place] Alarm Date: 01/12/18 7. Claudine Joseph and/or [...] I also recommend that she keep her [employer] identification card with our clinic contact information at all times. 4. Dr. Murphy and Dr. Ngo can be reached for emergencies and after hours by calling the [facility] at . PATIENT AND CARE [...] reservoir through the catheter. Using an external operating systems programmer, your treatment team can make adjustments in [...] be arranged to be done by [employer]tronic Instrument Calibrator if scheduled during business hours. We recommend [...] savings time after being interrogated by a operating systems programmer. The flex/bolus dosing patient should schedule a [...] BSN, ACNP-BC, CNRN Acute Care Nurse Practitioner [facility] [address], [address] [place] [address] [email or web address] Office [phone] in this encounter* Patient Instructions - Ruma Godwin, [facility] - 04/21/2018 10:16 AM EDT Formatting of this note may be different from the original. 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 Roxy RENE date: Synchromed I IPump Size: 40 mL [place] Location: 11 oclock Catheter Tip Placement: PLAN REGARDING INTRATHECAL BACLOFEN THERAPY First Medication Brand: LIORESAL Concentration: 2000 mcg/mL Total Daily Dose: 677.2 mcg/day 1. Pump Programming: Simple Continuous 2. Pump [place] Refill: The injection site was prepped sterilely, [...] reservoir refill date: 01/07/18 6. Pump Low [place] Alarm Date: 08/11/18 7. Claudine Joseph and/or [...] long periods of sitting (long car ride, [employer] meeting) F. Don't get too cool. Cold [...] emergencies and after hours by calling the [facility] at PATIENT AND CARE PROVIDER [...] reservoir through the catheter. Using an external operating systems programmer, your treatment team can make adjustments in [...] be arranged to be done by aMedtronic Instrument Calibrator if scheduled during business hours. We recommend [...] savings time after being interrogated by a operating systems programmer. The flex/bolus dosing patient should schedule a [...] BSN, ACNP-BC, CNRN Acute Care Nurse Practitioner [facility] [address], [address] [place] [address] [email or web address] Office [phone] in this encounter* Patient Instructions - Khadijahadriannataly Ruma ChioYe, ACTIVITIES ATTENDANT - 06/01/2017 11:32 AM EDT Formatting of this note may be different from the original. 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 Roxy RENE date: Synchromed I IPump Size: 40 mL [place] Location: 11 oclock Catheter Tip Placement: PLAN REGARDING INTRATHECAL BACLOFEN THERAPY First Medication Brand: LIORESAL Concentration: 2000 mcg/mL Total Daily Dose: 645.4 mcg/day 1. Pump Programming: Simple Continuous 2. Pump [place] Refill: The injection site was prepped sterilely, [...] reservoir refill date: 06/01/17 6. Pump Low [place] Alarm Date: 09/26/17 7. Claudine Joseph and/or [...] emergencies and after hours by calling the [facility] at . PATIENT AND CARE [...] reservoir through the catheter. Using an external operating systems programmer, your treatment team can make adjustments in [...] often be arranged to be done by [facility] Instrument Calibrator if scheduled during business hours. We recommend [...] savings time after being interrogated by a operating systems programmer. The flex/bolus dosing patient should schedule a [...] Nurse Practitioner [facility] Sclerosis [address], [address] [place] [address] [email or web address] Office [phone] in this encounter* Patient Instructions* Ruma Godwin, ACTIVITIES ATTENDANT - 11/21/2018 10:53 AM EDT INTRATHECAL BACLOFEN SYSTEM INFORMATION FOR Claudine Joseph Severe Spasticity due to: CP Implanted: [address] Roxy RENE date: 54 (March 2023) Synchromed I IPump Size: 40 mL [place] Location: 11 oclock Catheter Tip Placement: PLAN REGARDING INTRATHECAL BACLOFEN THERAPY First Medication Brand: LIORESAL Concentration: 2000 mcg/mL Total Daily Dose: 649.8 mcg/day 1. Pump Programming: Simple Continuous 2. Pump Robertson Refill: The injection site was prepped sterilely, [...] reservoir refill date: 11/21/18 6. Pump Low [place] Alarm Date: 03/17/19 7. Claudine Joseph and/or [...] I also recommend that she keep her [employer] identification card with our clinic contact information at all times. 4. Dr. Murphy and Dr. Ngo can be reached for emergencies and after hours by calling the [facility] at . PATIENT AND CARE [...] reservoir through the catheter. Using an external operating systems programmer, your treatment team can make adjustments in [...] be arranged to be done by [employer]onic Instrument Calibrator if scheduled during business hours. We recommend [...] savings time after being interrogated by a operating systems programmer. The flex/bolus dosing patient should schedule a [...] BSN, ACNP-BC, CNRN Acute Care Nurse Practitioner [facility] [address], [address] [place] [address] [email or web address] Office [phone] in this encounter* Patient Instructions - Wright Yany Kiya, ROCKY - 04/26/2017 2:10 PM EDT Increase [...] 2023) Synchromed I IPump Size: 40 mL [place] Location: 11 oclock Catheter Tip Placement: PLAN REGARDING INTRATHECAL BACLOFEN THERAPY First Medication Brand: LIORESAL Concentration: 2000 mcg/mL Total Daily Dose: 649.8 mcg/day 1. Pump Programming: Simple Continuous 2. Pump Robertson Refill: The injection site was prepped sterilely, [...] reservoir refill date: 06/29/19 6. Pump Low [place] Alarm Date: 07/03/19 7. Claudine Joseph and/or [...] emergencies and after hours by calling the [facility] at PATIENT AND CARE PROVIDER EDUCATION You can learn more about spasticity and ITB therapy at the following website: [email or web address] If you have a smart phone then [...] reservoir through the catheter. Using an external operating systems programmer, your treatment team can make adjustments in [...] be arranged to be done by [employer]tronic Instrument Calibrator if scheduled during business hours. We recommend [...] savings time after being interrogated by a operating systems programmer. The flex/bolus dosing patient should schedule a [...] BSN, ACNP-BC, CNRN Acute Care Nurse Practitioner [facility] [address] [place] [address], [address] [place] [address] [email or web address] Office [phone] documented in this encounter* Patient Instructions* Ruma Godwin CNP - 10/19/2019 11:43 AM EST INTRATHECAL BACLOFEN SYSTEM INFORMATION FOR Claudine Joseph Severe Spasticity due to: CP Implanted: [address] Roxy RENE date: 43 (March 2023) Synchromed I IPump Size: 40 mL [place] Location: 11 oclock Catheter Tip Placement: PLAN REGARDING INTRATHECAL BACLOFEN THERAPY First Medication Brand: LIORESAL Concentration: 2000 mcg/mL Total Daily Dose: 649.8 mcg/day 1. Pump Programming: Simple Continuous 2. Pump Robertson Refill: The injection site was prepped sterilely, [...] reservoir refill date: 10/19/19 6. Pump Low Robertson Alarm Date: 02/12/20 7. Claudine Joseph and/or [...] I also recommend that she keep her [employer] identification card with our clinic contact information at all times. 4. Dr. Ngo can be reached for emergencies and after hours by calling the [facility] at . PATIENT AND CARE [...] reservoir through the catheter. Using an external operating systems programmer, your treatment team can make adjustments in [...] be arranged to be done by aMedtronic Instrument Calibrator if scheduled during business hours. We recommend [...] savings time after being interrogated by a operating systems programmer. The flex/bolus dosing patient should schedule a [...] BSN, ACNP-BC, CNRN Acute Care Nurse Practitioner [facility] [address], [address] [place] [address] [email or web address] Office [phone] documented in this encounter* Patient Instructions* Ruma Godwin CNP - 02/08/2020 11:38 AM EDT INTRATHECAL BACLOFEN SYSTEM INFORMATION FOR Claudine Joseph Severe Spasticity due to: CP Implanted: [address] Roxy RENE date: 39 (March 2023) Synchromed I IPump Size: 40 mL [place] Location: 11 oclock Catheter Tip Placement: PLAN REGARDING INTRATHECAL BACLOFEN THERAPY First Medication Brand: LIORESAL Concentration: 2000 mcg/mL Total Daily Dose: 649.8 mcg/day 1. Pump Programming: Simple Continuous 2. Pump [place] Refill: The injection site was prepped sterilely, [...] reservoir refill date: 02/08/20 6. Pump Low [place] Alarm Date: 06/03/20 7. Claudine Joseph and/or [...] emergencies and after hours by calling the [facility] at . PATIENT AND CARE [...] reservoir through the catheter. Using an external operating systems programmer, your treatment team can make adjustments in [...] be arranged to be done by aMedtronic Instrument Calibrator if scheduled during business hours. We recommend [...] savings time after being interrogated by a operating systems programmer. The flex/bolus dosing patient should schedule a [...] BSN, ACNP-BC, CNRN Acute Care Nurse Practitioner [facility] [address], [address] [place] [address] [email or web address] Office [phone] documented in this encounter* Patient Instructions* Ruma Godwin CNP - 05/30/2020 10:42 AM EDT INTRATHECAL BACLOFEN SYSTEM INFORMATION FOR Claudine Joseph Severe Spasticity due to: CP Implanted: [address] Roxy RENE date: 35 months (March 2023) Synchromed I IPump Size: 40 mL [place] Location: 11 oclock Catheter Tip Placement: PLAN REGARDING INTRATHECAL BACLOFEN THERAPY First Medication Brand: LIORESAL Concentration: 2000 mcg/mL Total Daily Dose: 649.8 mcg/day 1. Pump Programming: Simple Continuous 2. Pump [place] Refill: The injection site was prepped sterilely, [...] reservoir refill date: 05/30/20 6. Pump Low [place] Alarm Date: 09/23/20 7. Claudine Joseph and/or [...] emergencies and after hours by calling the [facility] at PATIENT AND CARE PROVIDER [...] reservoir through the catheter. Using an external operating systems programmer, your treatment team can make adjustments in [...] be arranged to be done by aMedtronic Instrument Calibrator if scheduled during business hours. We recommend [...] savings time after being interrogated by a operating systems programmer. The flex/bolus dosing patient should schedule a [...] BSN, ACNP-BC, CNRN Acute Care Nurse Practitioner [facility] [address], [address] [place] [address] [email or web address] Office [phone] documented in this encounter* Patient Instructions* Ruma Godwin CNP - 09/19/2020 10:22 AM EST INTRATHECAL BACLOFEN SYSTEM INFORMATION FOR Claudine Joseph Severe Spasticity due to: CP Implanted: [address] Roxy RENE date: 32 months (March 2023) Synchromed I IPump Size: 40 mL [place] Location: 11 oclock Catheter Tip Placement: PLAN REGARDING INTRATHECAL BACLOFEN THERAPY First Medication Brand: LIORESAL Concentration: 2000 mcg/mL Total Daily Dose: 649.8 mcg/day 1. Pump Programming: Simple Continuous 2. Pump Robertson Refill: The injection site was prepped sterilely, [...] reservoir refill date: 09/19/20 6. Pump Low Robertson Alarm Date: 01/13/21 7. Claudine Joseph and/or [...] I also recommend that she keep her [employer] identification card with our clinic contact information at all times. 4. [facility] Spasticity Team can be reached for emergencies and after hours by calling the [facility] at PATIENT AND CARE PROVIDER [...] reservoir through the catheter. Using an external operating systems programmer, your treatment team can make adjustments in [...] following an ITB refill/program adjustment. I recommend lCaudine Joseph contactour office prompts if these symptoms [...] be arranged to be done by a[employer]tronic Instrument Calibrator if scheduled during business hours. We recommend [...] savings time after being interrogated by a operating systems programmer. The flex/bolus dosing patient should schedule a [...] BSN, ACNP-BC, CNRN Acute Care Nurse Practitioner [facility] [address] [place] [address], [address] [place] [address] Office [phone] documented in this encounter* Patient Instructions* Ruma Godwin CNP - 09/19/2020 10:22 AM EST INTRATHECAL BACLOFEN SYSTEM INFORMATION FOR Claudine Joseph Severe Spasticity due to: CP Implanted: [address] Roxy RENE date: 32 months (March 2023) Synchromed I IPump Size: 40 mL [place] Location: 11 oclock Catheter Tip Placement: PLAN REGARDING INTRATHECAL BACLOFEN THERAPY First Medication Brand: LIORESAL Concentration: 2000 mcg/mL Total Daily Dose: 649.8 mcg/day 1. Pump Programming: Simple Continuous 2. Pump Robertson Refill: The injection site was prepped sterilely, [...] reservoir refill date: 09/19/20 6. Pump Low Robertson Alarm Date: 01/13/21 7. Claudine Joseph and/or [...] clinic contact information at all times. 4. [facility] Spasticity Team can be reached for emergencies and after hours by calling the [facility] at PATIENT AND CARE PROVIDER [...] reservoir through the catheter. Using an external operating systems programmer, your treatment team can make adjustments in [...] be arranged to be done by a[employer]tronic Instrument Calibrator if scheduled during business hours. We recommend [...] savings time after being interrogated by a operating systems programmer. The flex/bolus dosing patient should schedule a [...] BSN, ACNP-BC, CNRN Acute Care Nurse Practitioner [facility] [address], [address] [place] [id number] Office [phone] documented in this encounter* Patient Instructions* Ruma Godwin CNP - 02/08/2020 11:38 AM EDT INTRATHECAL BACLOFEN SYSTEM INFORMATION FOR Claudine Joseph Severe Spasticity due to: CP Implanted: [address] Roxy RENE date: 39 (March 2023) Synchromed I IPump Size: 40 mL [place] Location: 11 oclock Catheter Tip Placement: PLAN REGARDING INTRATHECAL BACLOFEN THERAPY First Medication Brand: LIORESAL Concentration: 2000 mcg/mL Total Daily Dose: 649.8 mcg/day 1. Pump Programming: Simple Continuous 2. Pump Robertson Refill: The injection site was prepped sterilely, [...] reservoir refill date: 02/08/20 6. Pump Low Robertson Alarm Date: 06/03/20 7. Claudine Joseph and/or [...] I also recommend that she keep her [employer] identification card with our clinic contact information at all times. 4. Dr. Ngo can be reached for emergencies and after hours by calling the [facility] at . PATIENT AND CARE [...] reservoir through the catheter. Using an external operating systems programmer, your treatment team can make adjustments in [...] often be arranged to be done by [facility] Calibrator if scheduled during business hours. We recommend [...] savings time after being interrogated by a operating systems programmer. The flex/bolus dosing patient should schedule a [...] BSN, ACNP-BC, CNRN Acute Care Nurse Practitioner [facility] [address] [place] [address], [address] [place] [address] [email or web address] Office [phone] documented in this encounter* Patient Instructions* Yany Wright CNP - 10/02/2020 11:59 AM EST Call or MyChart with questions, concerns or any seizure activity. I sent prescriptions for Lamictal, Keppra, and Valium to your pharmacy. I think the Epidiolex to the [facility] pharmacy. documented in this encounter* Patient Instructions* Ruma Godwin CNP - 03/09/2019 11:18 AM EDT INTRATHECAL BACLOFEN SYSTEM INFORMATION FOR Claudine Joseph Severe Spasticity due to: CP Implanted: [address] Roxy RENE date: 50 (March 2023) Synchromed I IPump Size: 40 mL [place] Location: 11 oclock Catheter Tip Placement: PLAN REGARDING INTRATHECAL BACLOFEN THERAPY First Medication Brand: LIORESAL Concentration: 2000 mcg/mL Total Daily Dose: 649.8 mcg/day 1. Pump Programming: Simple Continuous 2. Pump Robertson Refill: The injection site was prepped sterilely, [...] reservoir refill date: 03/09/19 6. Pump Low Robertson Alarm Date: 07/03/19 7. Claudine Joseph and/or [...] emergencies and after hours by calling the [facility] at PATIENT AND CARE PROVIDER [...] reservoir through the catheter. Using an external operating systems programmer, your treatment team can make adjustments in [...] often be arranged to be done by [facility] Calibrator if scheduled during business hours. We recommend [...] savings time after being interrogated by a operating systems programmer. The flex/bolus dosing patient should schedule a [...] BSN, ACNP-BC, CNRN Acute Care Nurse Practitioner [facility] [address], [address] [place] [address] [email or web address] Office [phone] documented in this encounter Summary Purpose Family [...] Documents on File Type Date Recorded Patient Instrument Calibrator Expl anation Advance Directives and Livin g Will 11/28/2018 5:40 PM Documents on File Type Date Recorded Patient Instrument Calibrator Expl anation Advance Directives and Livin g [...] Documents on File Type Date Recorded Patient Instrument Calibrator Expl anation Advance Directives and Livin g Will 05/22/2019 6:47 AM Documents on File Type Date Recorded Patient Instrument Calibrator Expl anation Advance Directives and Livin g Will 05/22/2019 6:47 AM Latest Code Status on File Code Status Date Activated Date Inactivated Comments Full Code 11/29/2018 2:17 AM 05/04/2019 2:52 PM Documents on File Type Date Recorded Patient Instrument Calibrator Expl anation Advance Directives and Livin g Will 09/19/2019 8:24 PM Latest Code Status on File Code Status Date Activated Date Inactivated Comments Full Code 09/20/2019 3:34 AM Full Code 11/29/2018 2:17 AM 05/04/2019 2:52 PM Documents on File Type Date Recorded Patient Instrument Calibrator Expl anation Advance Directives and Livin g Will 09/19/2019 8:24 PM Latest Code Status on File Code Status Date Activated Date Inactivated Comments Full Code 09/20/2019 3:34 AM Full Code 11/29/2018 2:17 AM 05/04/2019 2:52 PM Documents on File Type Date Recorded Patient Instrument Calibrator Expl anation Advance Directives and Livin g Will 10/21/2019 1:30 PM Latest Code Status on File Code Status Date Activated Date Inactivated Comments Full Code 10/21/2019 6:53 PM Full Code 09/20/2019 3:34 AM 10/21/2019 12:43 PM Documents on File Type Date Recorded Patient Instrument Calibrator Expl anation Advance Directives and Livin g Will 01/22/2020 3:57 PM Latest Code Status on File Code Status Date Activated Date Inactivated Comments Full Code 10/21/2019 6:53 PM 01/22/2020 3:20 PM Full Code 09/20/2019 3:34 AM 10/21/2019 12:43 PM Documents on File Type Date Recorded Patient Instrument Calibrator Expl anation Advance Directives and Livin g Will 02/12/2020 1:53 PM Latest Code Status on File Code Status Date Activated Date Inactivated Comments Full Code 02/12/2020 7:42 PM 02/14/2020 2:16 PM Full Code 02/12/2020 4:34 PM 02/12/2020 7:42 PM Full Code 10/21/2019 6:53 PM 01/22/2020 3:20 PM Documents on File Type Date Recorded Patient Instrument Calibrator Expl anation Advance Directives and Livin g Will 03/21/2020 2:59 PM Latest Code Status on File Code Status Date Activated Date Inactivated Comments Full Code 03/21/2020 7:52 PM 03/22/2020 8:04 PM Full Code 02/12/2020 7:42 PM 02/14/2020 2:16 PM Documents on File Type Date Recorded Patient Instrument Calibrator Expl anation Advance Directives and Livin g Will 08/13/2020 11:33 AM Latest Code Status on File Code Status Date Activated Date Inactivated Comments Full Code - Unverified 08/13/2020 3:49 PM 08/13/2020 7 :44 PM Full Code 03/21/2020 7:52 PM 03/22/2020 8:04 PM Documents on File Type Date Recorded Patient Instrument Calibrator Expl anation Advance Directives and Livin g Will 09/23/2020 11:33 AM Latest Code Status on File Code Status Date Activated Date Inactivated Comments Full Code - Unverified 09/24/2020 7:24 AM 09/25/2020 2:4 6 PM Full Code - Unverified 09/23/2020 7:02 PM 09/24/2020 7:2 4 AM Full Code - Unverified 08/13/2020 3:49 PM 08/13/2020 7 :44 PM Documents on File Type Date Recorded Patient Instrument Calibrator Expl anation Advance Directives and Livin g Will 05/04/2019 4:30 PM Documents on File Type Date Recorded Patient Instrument Calibrator Expl anation Advance Directives and Livin g Will 11/27/2020 11:33 AM Documents on File Type Date Recorded Patient Instrument Calibrator Expl anation Advance Directives and Livin g Will 01/13/2021 1:41 PM Documents on File Type Date Recorded Patient Instrument Calibrator Expl anation Advance Directives and Livin g [...] Documents on File Type Date Recorded Patient Instrument Calibrator Expl anation Advance Directives and Livin g Will 03/19/2021 7:15 PM Documents on File Type Date Recorded Patient Instrument Calibrator Expl anation Advance Directives and Livin g Will 03/19/2021 7:15 PM Documents on File Type Date Recorded Patient Instrument Calibrator Expl anation Advance Directives and Livin g Will 09/09/2021 12:56 PM Documents on File Type Date Recorded Patient Instrument Calibrator Expl anation Advance Directives and Livin g [...] Do you have a Healthcare Power of Internet Merchant? No April 06, 2025 1:17pm History of Present Illness * uRma Godwin, ACTIVITIES ATTENDANT - 05/31/2017 5:42 PM EDT Formatting of this note may be different from the original. [facility] Sp[facility]ity Clinic: Intrathecal Baclofen [...] reports afew more seizures recently, Yany Wright ACTIVITIES ATTENDANT recently adjusted seizure medication. Mom feels that spasticity is well controlled at current dose. OTHER RELEVANT HISTORY [facility] - 06/01/17 1058 General Change in weight [...] past medical history of Acute respiratory failure ([facility]); Allergic rhinitis; Anoxic brain damage ([facility]); Aspiration, chronic pulmonary; Bowel and bladder incontinence; Cerebral palsy ([facility]); Chronic respiratory failure with hypoxia ([facility]); Constipation; GERD (gastroesophageal reflux disease);MRSA (methicillin resistant Staphylococcus aureus) (04/2016); Nonverbal; Postoperative retention ofurine; Restrictive lung disease due to kyphoscoliosis; and Seizures ([facility]). She has a past surgical history [...] [address] Roxy RENE date: 70 Synchromed I IPump Size: 40 mL [place] Location: 11 oclock Catheter Tip Placement: PLAN REGARDING INTRATHECAL BACLOFEN THERAPY First Medication Brand: LIORESAL Concentration: 2000 mcg/mL Total Daily Dose: 645.4 mcg/day 1. Pump Programming: Simple Continuous 2. Pump Robertson Refill: The injection site was prepped sterilely, [...] reservoir refill date: 06/01/17 6. Pump Low Robertson Alarm Date: 09/26/17 7. Claudine Joseph and/or [...] emergencies and after hours by calling the [facility] at . PATIENT AND CARE [...] reservoir through the catheter. Using an external operating systems programmer, your treatment team can make adjustments in [...] often be arranged to be done by [facility] Instrument Calibrator if scheduled during business hours. We recommend [...] savings time after being interrogated by a operating systems programmer. The flex/bolus dosing patient should schedule a [...] BSN, ACNP-BC, CNRN Acute Care Nurse Practitioner [address], [address] [place] [address] [email or web address] Office [phone] in this encounter* Ruma Godwin, ACTIVITIES ATTENDANT - 11/20/2018 8:51 PM EDT [facility] Sp[facility] Clinic: Intrathecal Baclofen Therapy [...] antibiotics and still has PICC line in RUE. OTHER RELEVANT HISTORY [facility] [place] [facility] - 11/21/18 1018 General Change in weight [...] past medical history of Acute respiratory failure ([facility]), Allergic rhinitis, Anoxic brain damage ([facility]), Aspiration, chronic pulmonary, Bowel and bladder incontinence, Cerebral palsy ([facility]), Chronic respiratory failure with hypoxia ([facility]), Constipation, GERD (gastroesophageal reflux disease),MRSA (methicillin resistant Staphylococcus aureus) (04/2016), Nonverbal, Postoperative retention ofurine, Restrictive lung disease due to kyphoscoliosis, and Seizures ([facility]). She has a past surgical history [...] 2023) Synchromed I IPump Size: 40 mL [place] Location: 11 oclock Catheter Tip Placement: PLAN REGARDING INTRATHECAL BACLOFEN THERAPY First Medication Brand: LIORESAL Concentration: 2000 mcg/mL Total Daily Dose: 649.8 mcg/day 1. Pump Programming: Simple Continuous 2. Pump Robertson Refill: The injection site was prepped sterilely, [...] reservoir refill date: 11/21/18 6. Pump Low Robertson Alarm Date: 03/17/19 7. Claudine Joseph and/or [...] emergencies and after hours by calling the [facility] at . PATIENT AND CARE [...] reservoir through the catheter. Using an external operating systems programmer, your treatment team can make adjustments in [...] be arranged to be done by a[employer]onic Instrument Calibrator if scheduled during business hours. We recommend [...] savings time after being interrogated by a operating systems programmer. The flex/bolus dosing patient should schedule a [...] BSN, ACNP-BC, CNRN Acute Care Nurse Practitioner [facility] [place] [address], [address] [place] [address] [email or web address] Office [phone] in this encounter* Onelia Acevedo DO - 12/05/2018 5:45 AM EDT DAILY PROGRESS NOTE - FAMILY MEDICINE Patient Name: Claudine Joseph MR #: [id number] Assessment/Plan: Perpetual Assessment: Claudine Joseph is a 28 y.o. female on hospital day 6 with a history of anoxic brain injury, cerebral palsy s/p baclofen pump, seizure, restrictive lung disease with chronic respiratory failure on 4L NC, aspiration, PEG tube, incontinence, chronic sacral ulcer, GERD, hypernatremia who presented to [facility] from home on 11/28/2018 with complaints of [...] 200 mL q8h. D5 infusion discontinued. - Continuous Still Operator consulted. Appreciate assistance with nutrition. Tube feeds [...] Dr. Cowan, attending. Onelia Gutierrez D.O. PGY1 [facility] P: [phone] Assessment Detail: Based on current clinical information, [...] Also on pureed diet and ensure. Appreciate nut culler recommendations - education of foster mother prior to discharge. 4. Restrictive lung disease -secondary to scoliosis. Patient currently on home oxygen requirement of 4 L. 5. Urinary tract infection - s/p 3 days of cefipime. Urine culture with klebsiella. 6. Dispo: Possible discharge home today if okay with ID. * Elodia Zafar, - 12/04/2018 6:59 AM EDT DAILY PROGRESS NOTE - [facility] Patient Name: Claudine Joseph MR #: [id number] Assessment/Plan: Perpetual Assessment: Claudine Joseph is a 28 y.o. female on hospital day 5 with a history of anoxic brain injury, cerebral palsy s/p baclofen pump, seizure, restrictive lung disease with chronic respiratory failure on 4L NC, aspiration, PEG tube, incontinence, chronic sacral ulcer, GERD, hypernatremia who presented to [facility] from home on 11/28/2018 with complaints of [...] 200 mL q8h. D5 infusion discontinued. - Continuous Still Operator consulted. Appreciate assistance with nutrition. Tube feeds [...] Dr. Cowan, attending. Elodia Zafar D.O. PGY2 [facility] P: [phone] Assessment Detail: Based on current clinical information, [...] Also on pureed diet and ensure. Appreciate nut culler recommendations. 4. Restrictive lung disease -secondary to [...] Resp: [12-20] 20 BP: (90-114)/(55-70) 114/70 * Onelia Acevedo DO - 12/03/2018 5:39 AM EDT DAILY PROGRESS NOTE - FAMILY MEDICINE Patient Name: Claudine Joseph [facility]: [id number] [id number] Assessment/Plan: Perpetual Assessment: Claudine Joseph is a 28 y.o. female on hospital day 4 with a history of anoxic brain injury, cerebral palsy s/p baclofen pump, seizure, restrictive lung disease with chronic respiratory failure on 4L NC, aspiration, PEG tube, incontinence, chronic sacral ulcer, GERD, hypernatremia who presented to [facility] from home on 11/28/2018 with complaints of [...] 200 mL q8h. D5 infusion discontinued. - Continuous Still Operator consulted. Appreciate assistance with nutrition. Tube feeds [...] Dr. Cowan, attending. Onelia Gutierrez D.O. PGY1 [facility] P: [phone] Assessment Detail: Based on current clinical information, [...] Also on pureed diet and ensure. Appreciate nut culler recommendations. 4. Restrictive lung disease -secondary to [...] . Wt Readings from Last 5 Encounters: 04/05/19 40.8 kg (89 lb 15.2 oz) 11/21/18 [...] Long-term need for PEG GI Function: LBM 12/01 -loose Skin integrity: U/S area to sacrum Recent Labs 12/02/18 0812 NA 153* K 4.3 BICARB 32 CL 109* GLUCOSE 96 BUN 10 CREATININE 0.29* Estimated Energy Needs Total Energy Estimated Needs: 0619-1594 kcal Method for Estimating Needs: 25-30 kcal/kg Total Protein Estimated Needs: 49-61g Method for Estimating Needs: 1.2-1.5g/kg Fluid Needs Total Fluid Estimated Needs: 1174-1408ml Method for Estimating Needs: 1ml/kcal Courtney Peter RD, Vocera [phone] * Onelia Acevedo DO - 12/02/2018 5:50 AM EDT DAILY PROGRESS NOTE - FAMILY MEDICINE Patient Name: Claudine Joseph MR #: [id number] [facility] [id number] Assessment/Plan: Perpetual Assessment: Claudine Joseph is a 28 y.o. female on hospital day 3 with a history of anoxic brain injury, cerebral palsy s/p baclofen pump, seizure, restrictive lung disease with chronic respiratory failure on 4L NC, aspiration, PEG tube, incontinence, chronic sacral ulcer, GERD, hypernatremia who presented to [facility] from home on 11/28/2018 with complaints of [...] 200 mL q8h. D5 infusion discontinued. - Continuous Still Operator consulted. Appreciate assistance with nutrition. Tube feeds [...] Dr. Cowan, attending. Onelia Gutierrez D.O. PGY1 [facility] P: [phone] Assessment Detail: Based on current clinical information, [...] Also on pureed diet and ensure. Appreciate nut culler recommendations. 4. Restrictive lung disease -secondary to [...] Note Patient Name: Claudine Joseph MR #: [id number] : 1990 Chief Complaint/Reason for Visit: Chief Complaint Patient presents with Fever Respiratory Distress Assessment and Plan: 28 y.o. female with h/o seizures, cerebral palsy, GERD, chronic aspiration, previous MRSA pneumoniacausing acute respiratory failure, Prior CCY, PEG tube placement, who presented to [facility] on 11/29 with fever and hypoxia, found [...] packing Neurological: PAREDES, no focal deficits Donnie Mock PGY5, , [place] [phone] Pager If you cannot reach me, please page [phone] * Gase Onelia Colon DO - 12/01/2018 5:54 AM EDT DAILY PROGRESS NOTE - FAMILY MEDICINE Patient Name: Claudine Joseph MR #: [id number] Assessment/Plan: Perpetual Assessment: Claudine Joseph is a 28 y.o. female on hospital day 2 with a history of anoxic brain injury, cerebral palsy s/p baclofen pump, seizure, restrictive lung disease with chronic respiratory failure on 4L NC, aspiration, PEG tube, incontinence, chronic sacral ulcer, GERD, hypernatremia who presented to [facility] from home on 11/28/2018 with complaints of [...] 200 mL q8h. D5 infusion discontinued. - Continuous Still Operator consulted. Appreciate assistance with nutrition. Tube feeds [...] Dr. Brar, attending. Onelia Gutierrez D.O. PGY1 [facility] P: [phone] Assessment Detail: Based on current clinical information, [...] MD 9:41 AM 12/01/18 * Mignon Castillo RPh,PharmD - 11/30/2018 12:49 PM EDT PHARMACOTHERAPY NOTE: [...] Last vancomycin dose administered @ 23:47 on 11/29 Vancomyicin drug level: 11.0mcg/mL @ 11:09 on 11/30 Pharmacist: Mignon Castillo RPh,PharmD Contact Number: [phone] * Onelia Acevedo DO - 11/30/2018 6:42 AM EDT DAILY PROGRESS NOTE - FAMILY MEDICINE Patient Name: Claudine Joseph MR #: [id number] Assessment/Plan: Perpetual Assessment: Claudine Joseph is a 28 y.o. female on hospital day 1 with a history of anoxic brain injury, cerebral palsy s/p baclofen pump, seizure, restrictive lung disease with chronic respiratory failure on 4L NC, aspiration, PEG tube, incontinence, chronic sacral ulcer, GERD, hypernatremia who presented to [facility] from home on 11/28/2018 with complaints of [...] pneumonitis given increased respiratory requirements. Presenting with .9F, HR 138, RR 25. CXR limited by [...] mL q4h. Will discontinue D5 infusion. - Continuous Still Operator consulted. To see patient first this morning. [...] Dr. Brar, attending. Onelia Gutierrez D.O. PGY1 [facility] P: [phone] Assessment Detail: Based on current clinical information, [...] Fidencio Brar MD 11:28 AM 11/30/18 * Gase Onelia Colon DO - 11/29/2018 5:47 AM EDT DAILY PROGRESS NOTE - [facility] Patient Name: Claudine Joseph MR #: [id number] Assessment/Plan: Perpetual Assessment: Claudine Joseph is a 28 y.o. female on hospital day 0 with a history of anoxic brain injury, cerebral palsy s/p baclofen pump, seizure, restrictive lung disease with chronic respiratory failure on 4L NC, aspiration, PEG tube, incontinence, chronic sacral ulcer, GERD, hypernatremia who presented to [facility] from home on 11/28/2018 with complaints of [...] - Currently NPO. Increase free water. - Continuous Still Operator consulted. Appreciate assistance. Chronic hypoxic respiratory failure [...] Code Status: FULL CODE Subjective/Objective: S: Patient's cabinet installer and adopted mom states that Claudine looks [...] to a wound clinic every Wednesday in [facility] for wound clinic. Mom changes the dressing [...] on 11/28/18 Source Information Onelia Colon DO [facility] Emergency Dept Intake/Output last 3 shifts: No intake/output data recorded. Results/Medications Reviewed 11/29/18 5:48 AM: Reviewed medications, vitals, radiology, consult notes Will discuss with Dr. Brar, attending. Onelia Gutierrez D.O. PGY1 [facility] P: [phone] Assessment Detail: Based on current clinical information, [...] Brar MD 11:39 AM 11/29/18 * Leonidas Cano formerly [facility],PharmD - 11/29/2018 3:46 AM EDT PHARMACOTHERAPY NOTE: [...] 1 Encounters: 11/28/18 40.8 kg (90 lb) Dudley body weight: 40.9 kg (90 lb 1.1 oz) Labs include: WBC (K/mcL) Date Value 11/28/2018 9.45 04/22/2017 11.6 (H) BUN (mg/dL) Date Value 11/28/2018 16 04/22/2017 13 Creatinine (mg/dL) Date Value 11/28/2018 0.37 (L) 04/22/2017 0.44 Estimated Creatinine Clearance: 145.8 mL/min (A) (by C-G formula based on SCr of 0.37 mg/dL (L)). Patient Tmax (last 24 hours): 100.9F (11/28 1910) Micro: 11/28 blood/urine aerobic cx in process Leonidas Cano RPh,PharmD [phone] in this encounter* Yany Wright, ACTIVITIES ATTENDANT - 04/26/2017 1:44 PM EDT Formatting of this note may be different from the original. NEUROLOGY Outpatient Follow-Up [facility] [address], [address] [place] [id number] (office) / [phone] (fax) Patient Name: Claudine Joseph : 1990 MR #: [id number] Date of Neurology Follow-up: 04/26/17 Name of Provider: Yany Wright, LUBE MAN, ACTIVITIES ATTENDANT Other Physicians: Colette Goode MD (Primary Care [...] 10. Seizure Risk Factors: Head trauma No LUBE MAN Infections No Stroke/IPH No Family history Unknown Gestational, Delivery, or Developmental Abnormalities Cerebral anoxia at . Febrile seizures Unknown. Prior workup: MRI- was completed but report was not available today EEG- From [facility] 1999 Álvaro, Generalized, Maximum bifrontal, 2001 Intermittent Rhythmic Slow, Generalized and regional Left Occipital EEG 2017- mild to moderate diffuse encephalopathy that is nonspecific. EMU- None PET- None SPECT- None Neuropsych eval- None Past Medical History: Patient Active Problem List Diagnosis SNOMED CT(R) Difficulty walking WALKING DISABILITY Acute on chronic respiratory failure with hypoxia and hypercapnia (HCC) [id number] RESPIRATORY FAILURE Abdominal distention ABDOMINAL DISTENSION Congenital [...] decreasing chances for hypoxia. - Follows with Backend Python Developer. Thanks once again for involving our practice in Claudine's care. As always, it is a pleasure to participate in the care of your patients, and we remain available to any of your patients who would benefit from timely neurological evaluation. Sincerely, Yany Wright, LUBE MAN, [facility] Epilepsy Clinic, Epilepsy Monitoring Unit [facility] in this encounter* Amaris Dunne RN - 03/10/2019 12:01 PM EDT PA for Epidiolex APPROVED until 08/26/2019. [facility] will contact pt to set up delivery. documented in this encounter* Wilder Noland MD - 05/09/2019 10:58 AM EDT OFFICE CONSULT Patient Name: Claudine Joseph MR #: [id number] : 1990 Referring Physician: Marielle Duque* Physicians: [...] RIGHT ISCHIUM; Surgeon: Rad Luque MD; Location: [facility] Main OR; Service: Orthopedic LAMINECTOMY DECOMP THORACIC MULTI LEVEL N/A 07/27/2016 Procedure: T1-2 THORACIC FUSION REVISION ; Surgeon: Kb Ramsey MD; [place] [facility] [place]; Service: PEG TUBE INSERTION REVISION PAIN PUMP N/A 07/27/2016 Procedure: BACLOFEN PUMP REPLACEMENT ; Surgeon: Kb Ramsey MD; [place] [facility] [place]; Service: SALIVARY GLAND SURGERY Family [...] file Gets together: Not on file Attends zoroastrian service: Not on file Active member of [...] Instructions Prior to Surgery SADIE: Printed on:05/09/19 7625 Medication Information Take last dose on Take [...] contentnormal. documented in this encounter* Ruma Godwin, ACTIVITIES ATTENDANT - 06/28/2019 8:26 PM EDT [facility] Spasticity Clinic: Intrathecal Baclofen [...] failure (HCC), Allergic rhinitis, Anoxic brain damage ([facility]), Aspiration, chronic pulmonary, Bowel and bladder incontinence, Cerebral palsy ([facility]), Chronic respiratory failure with hypoxia ([facility]), Constipation, GERD (gastroesophageal reflux disease),MRSA (methicillin resistant Staphylococcus aureus) (04/2016), Nonverbal, Postoperative retention ofurine, Restrictive lung disease due to kyphoscoliosis, and Seizures (HCC). She has a past surgical history that [...] 2023) Synchromed I IPump Size: 40 mL [place] Location: 11 oclock Catheter Tip Placement: PLAN REGARDING INTRATHECAL BACLOFEN THERAPY First Medication Brand: LIORESAL Concentration: 2000 mcg/mL Total Daily Dose: 649.8 mcg/day 1. Pump Programming: Simple Continuous 2. Pump Robertson Refill: The injection site was prepped sterilely, [...] reservoir refill date: 06/29/19 6. Pump Low Robertson Alarm Date: 07/03/19 7. Claudine Joseph and/or [...] I also recommend that she keep her [employer] identification card with our clinic contact information at all times. 4. Dr. Ngo can be reached for emergencies and after hours by calling the [facility] at . PATIENT AND CARE [...] reservoir through the catheter. Using an external operating systems programmer, your treatment team can make adjustments in [...] an ITB refill/program adjustment. I recommend Claudine Ra Joseph contact our office prompts if these [...] are also common. I recommend that Claudine Ra Joseph go to the Emergency Department if [...] be arranged to be done by aMedtronic Instrument Calibrator if scheduled during business hours. We recommend [...] savings time after being interrogated by a operating systems programmer. The flex/bolus dosing patient should schedule a [...] BSN, ACNP-BC, CNRN Acute Care Nurse Practitioner [facility] [address] [place] [address], [address] [place] [address] [email or web address] Office [phone] documented in this encounter* Zamzam Swartz MSW [employer] - 09/27/2019 9:53 AM EST COMPLEX DISCHARGE Date: 09/27/2019 Time: 9:53 AM Patient Name: Claudine Joseph Date of : 1990 Sex: Female Home Health orders placed. D/c paperwork faxed to home health agency and [facility]. . Discharge Planning Living Arrangements: Parent [...] No Discharge Readiness Expected Discharge Date: 09/27/19 [facility] Disposition D/C Disposition: Home Health Care Services Related to Current Admission?: No Agency/Destination: Other(Primary Care HH) Home Care Needs : Home health care, Infusion Pharmacy, Oxygen Infusion Agency: [facility] HME: None Same As Recommended : yes Transportation Type: Auto Reason for Choice: Currently with agency * Rashid Mejia MD - 09/26/2019 4:04 PM EST Rashid Mejia MD [facility] Hospitalists DAILY PROGRESS NOTE Patient Name: Claudine [...] restricted to wheelchair at baseline follows at [facility] neuro clinic. -Has Baclofen pump in place -Continue tube feeds by PEG. She has chronic aspiration and is NPO long term care pharmacist. Seizure disorder - Refractory seizures and on complex regimen followed at [facility] neuro clinic. Decubitus ulcer -Present on admission [...] Vanco and Maxipime if possible. Referral to [employer]. I explained to mother that unlikely to be able to arrange all this on a weekend and pt only due to have IV ATB until 09/27 therefore unlikely that PICC advisable. She is now ok with remaining at [facility] until ATB done 09/27. CC / Reason [...] 09/25/2019 4:58 PM EST Rashid Mejia MD [facility] Hospitalists DAILY PROGRESS NOTE Patient Name: Claudine [...] restricted to wheelchair at baseline follows at [facility] neuro clinic. -Has Baclofen pump in place -Continue tube feeds by PEG. She has chronic aspiration and is NPO long term care pharmacist. Seizure disorder - Refractory seizures and on complex regimen followed at [facility] neuro clinic. Decubitus ulcer -Present on admission [...] Vanco and Maxipime if possible. Referral to [employer]. I explained to mother that unlikely to be able to arrange all this on a weekend and pt only due to have IV ATB until 09/27 therefore unlikely that PICC advisable. She is now ok with remaining at [facility] until ATB done 09/27. CC / Reason [...] Spent/CCM Time: over 25 min * Zamzam Swartz, WAQAS [employer] - 09/25/2019 11:32 AM EST DISCHARGE PLAN PROGRESS NOTE Date: 09/25/2019 Time: 11:32 AM Patient Name: Claudine Joseph Date of : 1990 Sex: Female [employer]CH[employer]ARD INSERTER met with pt's mother at bedside who provided contact number for Primary Care [facility] ([phone]). PUNCHBOARD INSERTER called agency and confirmed pt gets RN services every day of the week. . AVSupdated. [employer]ER[employer] informed agency pt will most likely d/c on 09/27. [facility] will fax d/c paperwork and new orders on day of dc. Pt's mother reports she will transport pt upon d/c. ADDENDUM 2:42pm: P[employer]CHBOARD INSERTER called [facility] liaison and confirmed pt is current with them for tube feeds. They do not need new orders if tube feeds are remaining the same. Will fax d/c paperwork upon discharge([phone]). [facility] Disposition D/C Disposition: Home Health Care Services Related to Current Admission?: No Agency/Destination: Other(Primary Care HH) Home Care Needs : Home health care, Infusion Pharmacy, Oxygen Infusion Agency: [facility] HME: None Same As Recommended : yes Transportation Type: Auto Reason for Choice: Currently with agency Anticipated Discharge Plan Anticipated HME: None Anticipated Home Care Needs: Home health care Anticipated Facility Type: Home care, Home infusion * Catalina Morales RD - 09/25/2019 7:44 AM EST Nutrition [...] Infusions: sodium chloride 0.9 % Stopped (09/22/19 1449) sodium chloride 0.9 % Stopped (09/25/19 0412) Estimated Energy Needs Total Energy Estimated Needs: 902-1025 Method for Estimating Needs: 22-25 kcal/kg current wt Total Protein Estimated Needs: 49-62 Method for Estimating Needs: 1.2-1.5 g/kg current wt Fluid Needs Total Fluid Estimated Needs: 1cc/kcal ~ Catalina Morales MS, RD, LD * Janna Llanes DO - 09/24/2019 12:39 PM EST Janna Llanes DO [facility] Hospitalists DAILY PROGRESS NOTE Patient Name: Claudine [...] restricted to wheelchair at baseline follows at [facility] neuro clinic. -Has Baclofen pump in place -Continue tube feeds by PEG. She has chronic aspiration and is NPO custodial. Seizure disorder - Refractory seizures and on complex regimen followed at [facility] neuro clinic. Decubitus ulcer -Present on admission [...] Vanco and Maxipime if possible. Referral to [employer]. I explained to mother that unlikely to be able to arrange all this on a weekend and pt only due to have IV ATB until 09/27 therefore unlikely thatPICC advisable. She is now ok with remaining at [facility] until ATB done 09/27. CC / Reason [...] 09/23/2019 11:58 AM EST Janna Llanes DO [facility] Hospitalists DAILY PROGRESS NOTE Patient Name: Claudine [...] restricted to wheelchair at baseline follows at [facility] neuro clinic. -Has Baclofen pump in place -Continue tube feeds by PEG. She has chronic aspiration and is NPO custodial. Seizure disorder - Refractory seizures and on complex regimen followed at [facility] neuro clinic. 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 Code Status: FULL code DVT Prophylaxis Lovenox Disposition and Comments Spoke to mother at the bedside. She provides all care at home and adopted Claudine at age 10. Mothersteffany worked with HHC in past and would like pt to go home with PICC and HHC to complete her Vanco and Maxipime if possible. Referral to [employer]. I explained to mother that unlikely to [...] 09/22/2019 2:28 PM EST Brendon Chavez MD [facility] Hospitalists DAILY PROGRESS NOTE Patient Name: Claudine [...] She is transferredout of IC&U today 09/22, [facility] is taking over care Assessment and Plan [...] tach per family -Continue vancomycin and Cefepime-day 11/03, will require 7 day course -Continue to [...] clinical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 Charlotte-Gastaut syndrome (HCC) REJI-GASTAUT SYNDROME Home Medications: Current [...] y.o. female with: SNOMED CT(R) 1. 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 - Follows with Backend Python Developer. Thanks once again for involving our practice in Claudine's care. As always, it is a pleasure to participate in the care of your patients, and we remain available to any of your patients who would benefit from timely neurological evaluation. Sincerely, Yany Wright, LUBE MAN, ACTIVITIES ATTENDANT Epilepsy Clinic, Epilepsy Monitoring Unit [facility] documented in this encounter* Gabby Davalos LSW - 09/24/2020 11:39 AM EST COMPLEX DISCHARGE Date: 09/24/2020 Time: 11:39 AM Patient Name: Claudine Joseph Date of : 1990 Sex: Female PUNCHBOARD INSERTER spoke with Danitza at [facility] (p [phone] f [phone]), who states that they may be able to accept pt for respite stay 09/25-09/26. Agency requests for PUNCHBOARD INSERTER to fax clinicals to [facility] for pt to admit to SNF as an alternative plan. Clinicals faxed to [facility]. PUNCHBOARD INSERTER spoke with pt's mother/gaurdian, Ely, who is currently a patient at [facility]. Ely denies SNF stay for pt; states that physicians are planning to discharge her tomorrow 09/25 and that she prefers for pt to discharge home with her at that time. Ely states that she has her own handicap-accesible van at [facility], and she plans to transport pt herself home. Patient Information Primary Caregiver: Private caregiver Discharge Planning Source of Information: Chart, Patient, Other (Comment)(caregivers) Living Arrangements: Parent, Family members Support Systems: Other (Comment)(guardian, Peg Joseph) Functional Status: Maximum assistance Current Home Equipment: Wheel chair, Oxygen CC Disposition D/C Disposition: Admit as Inpatient Agency/Destination: (TBD) * Onelia Bailey MSW LSW - 09/24/2020 11:05 AM EST COMPLEX DISCHARGE Date: 09/24/2020 Time: 12:15 PM Patient Name: Claudine Joseph Date of : 1990 Sex: Female ED DALJIT received phone call from [facility] social science teacherRhonda, who is with [place], following up on pt's medical care plan. Rhonda can be reached at [phone] with anyquestions or concerns. Unit SW phone [...] assistance Current Home Equipment: Wheel chair, Oxygen [facility] Disposition D/C Disposition: Admit as Inpatient Agency/Destination: (TBD) * Charline Richardson MD - 09/24/2020 7:42 AM EST [facility] Inpatient Progress Note 09/24/2020 Claudine Joseph 1990 [id number] Assessment/Plan: Claudine Joseph is a 30 y.o. female with a history of spastic cerebral palsy, quadriplegia, chronic respiratory failure, seizures, decubitus ulcers with wound vac, chronic sage and PEG tube who presented to [facility] 09/23/2020 with need for placement, found to be COVID-19 positive on admit. 1. COVID-19 Infection: Tested positive 09/23/20. Appears asymptomatic but difficult to evaluate due to nonverbal status. No increased O2 requirements. Supportive care, special isolation, monitor closely for decompensation. 2. Need for Placement: patient presented to [facility] for outpatient appointment but mother had syncopal [...] Dysphagia: with PEG tube in place. Consulted Continuous Still Operator for TF recs. 7. Chronic Urinary Retention: [...] imaging, vital signs, and prior documentation including franchise field consultant recommendations and summarized by me as [...] Date of : 1990 Sex: Female UPDATE 4:04pm-[facility] learned that pt other disabled adult children will be placed at [facility]. [facility] sent referral for Claudine there for review. [address] , [place] [address] Pt arrived with her guardian, Peg Joseph for an outpatient appointment when guardian fell, causing her to be admitted to hospital. Pt, claudine has been with friend and friend cannot care for her while guardian is admitted. Pt has history of spastic cerebral palsy, quadriplegia, chronic respiratory failure, seizures, decubitus ulcers with wound vac, chronic sage and PEG tube. [facility] discussed medical respite care with Peg who is agreeable and referrals have been sent to the following places; [facility], [facility], [facility] DALJIT is following. Handoff will be provided to admit DALJIT. WAQAS Guerrier, KEKE Emergency Room Barrel Rifler Button Vocera: ED Barrel Rifler Button documented in this encounter* Yany Wright CNP - 10/02/2020 11:18 AM EST NEUROLOGY Telephone visit Patient location: Home Provider location: [facility] [address] [place] [address], [address] [place] [address] (office) / [phone] (fax) Patient Name: Claudine Joseph : 1990 MR #: [id number] Date of Neurology Follow-up: 10/02/20 Name of Provider: Yany Wright, LUBE MAN, ACTIVITIES ATTENDANT Other Physicians: Colette Goode MD (Primary Care [...] and reports noted redness and thought cellulitis. Reports drove 65 miles to [facility] without any difficulty. Reports was walking Claudine into the hospital and [...] noted works instantly but did not help long term care pharmacist. Reports valium works better. Noemy is on [...] 10. Seizure Risk Factors: Head trauma No LUBE MAN Infections No Stroke/IPH No Family history Unknown Gestational, Delivery, or Developmental Abnormalities Cerebral anoxia at . Febrile seizures Unknown. Prior workup: MRI- was completed but report was not available today EEG- From [facility] 1999 Álvaro, Generalized, Maximum bifrontal, 2001 Intermittent [...] Generalized edema Sepsis (HCC) Sacral decubitus ulcer Charlotte-Gastaut syndrome (HCC) Pneumonia Aspiration pneumonia (HCC) UTI [...] a 30 y.o. female with: 1. 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 - Follows with Backend Python Developer. Thanks once again for involving our practice in Claudine's care. As always, it is a pleasure to participate in the care of your patients, and we remain available to any of your patients who would benefit from timely neurological evaluation. Sincerely, Yany Wright, LUBE MAN, ACTIVITIES ATTENDANT Epilepsy Clinic, Epilepsy Monitoring Unit [facility] documented in this encounter* Ruma Godwin CNP - 03/08/2019 3:55 PM EDT [facility] Spasticity Clinic: Intrathecal Baclofen [...] on CBD extract. Overall she / her disabilities caregiver reports that her spasticity is active. OTHER RELEVANT HISTORY Multiple Sclerosis Center ROS No documentation. She has a past medical history of Acute respiratory failure ([facility]), Allergic rhinitis, Anoxic brain damage ([facility]), Aspiration, chronic pulmonary, Bowel and bladder incontinence, Cerebral palsy ([facility]), Chronic respiratory failure with hypoxia ([facility]), Constipation, GERD (gastroesophageal reflux disease),MRSA (methicillin resistant Staphylococcus aureus) (04/2016), Nonverbal, Postoperative retention ofurine, Restrictive lung disease due to kyphoscoliosis, and Seizures ([facility]). She has a past surgical history [...] 2023) Synchromed I IPump Size: 40 mL [place] Location: 11 oclock Catheter Tip Placement: PLAN REGARDING INTRATHECAL BACLOFEN THERAPY First Medication Brand: LIORESAL Concentration: 2000 mcg/mL Total Daily Dose: 649.8 mcg/day 1. Pump Programming: Simple Continuous 2. Pump Robertson Refill: The injection site was prepped sterilely, [...] reservoir refill date: 03/09/19 6. Pump Low Robertson Alarm Date: 07/03/19 7. Claudine Joseph and/or [...] long periods of sitting (long car ride, [employer] meeting) F. Don't get too cool. Cold [...] emergencies and after hours by calling the [facility] at . PATIENT AND CARE [...] reservoir through the catheter. Using an external operating systems programmer, your treatment team can make adjustments in [...] be arranged to be done by [employer]onic Instrument Calibrator if scheduled during business hours. We recommend [...] savings time after being interrogated by a operating systems programmer. The flex/bolus dosing patient should schedule a [...] BSN, ACNP-BC, CNRN Acute Care Nurse Practitioner [facility] [address], [address] [place] [address] [email or web address] Office [phone] documented in this encounter* Ericka James LPN [...] Rfl: 3 catheter (SAGE CATHETER) [facility], by Miscellaneous route ., Disp: , Rfl: [...] 01/25/1992 INFLUENZA IIV4 3YO OR > FLUARIX/FLUZONE/AFLURIA 68002 08/01/2016, 11/24/2016 IPV 07/02/2003 Influenza Whole 05/31/2004 [...] RIGHT ISCHIUM; Surgeon: Rad Luque MD; Location: [facility] Main OR; Service: Orthopedic LAMINECTOMY DECOMP THORACIC MULTI LEVEL N/A 07/27/2016 Procedure: T1-2 THORACIC FUSION REVISION ; Surgeon: Kb Ramsey MD; [place] [facility] [place]; Service: PEG TUBE INSERTION REVISION PAIN PUMP N/A 07/27/2016 Procedure: BACLOFEN PUMP REPLACEMENT ; Surgeon: Kb Ramsey MD; [place] [facility] [place]; Service: SALIVARY GLAND SURGERY Family [...] Steel RN - 03/22/2020 1:02 PM EDT [facility] RN Note: Responding to consult for NPWT [...] can resume previous NPWT dressing changes at [facility]. Wound Documentation: 03/22/20 1302 Negative [...] Wound Margin Well defined;Rolled Granulation % Bright red;Toone;76-100% Wound Bed Characteristics Red;Toone;Granulation tissue Makenzie-wound Assessment Temperature WNL;Dry;Intact Treatments Skin sealant to periwound Cleansed Soap and water (Periwound skin) Primary Dressing NPWT Keiko FELTON, RN, WOC * Jerri Munroe CNP - 03/22/2020 7:01 AM EDT [facility] Inpatient Progress Note 03/22/2020 Claudine Joseph 1990 [id number] Assessment/Plan: Claudine Joseph is a 29 y.o. female with a history of spastic cerebral palsy, quadriplegia, chronic respiratory failure, seizures, decubitus ulcers with wound vac, chronic sage and PEG tube with recent admission 02/11-02/14/20 for sepsis due to aspiration pneumonia. She represented to [facility] 03/21/2020 with concern for sepsis by mother [...] dysphagia: Peg tube in place. TFs per nut culler. 7. Chronic urinary retention: with chronic Sage. 8. DVT prophylaxis: Lovenox SC Current living situation: Home with home health with mother Expected Disposition: Likely same Estimated discharge date: 03/22/20 after midline IV placed. Mother updated bedside 03/22/20 Subjective: Records reviewed including labs, vital signs, imaging, and franchise field consultant recommendations. She is nonverbal at baseline. [...] EDT Patient Name: Claudine Joseph MR #: [id number] : 1990 Referring Physician: Marielle Duque* Physicians: [...] RIGHT ISCHIUM; Surgeon: Rad Luque MD; Location: [facility] Main OR; Service: Orthopedic LAMINECTOMY DECOMP THORACIC MULTI LEVEL N/A 07/27/2016 Procedure: T1-2 THORACIC FUSION REVISION ; Surgeon: Kb Ramsey MD; [place] [facility]; Service: PEG TUBE INSERTION REVISION PAIN PUMP N/A 07/27/2016 Procedure: BACLOFEN PUMP REPLACEMENT ; Surgeon: Kb Ramsey MD; [place] [facility] [place]; Service: SALIVARY GLAND SURGERY Family [...] file Gets together: Not on file Attends zoroastrian service: Not on file Active member of [...] Instructions Prior to Surgery SADIE: Printed on:05/09/19 1988 Medication Information Take last dose on Take [...] be sent through Care Everywhere. * Sinusitis (Eritrean) in this encounter* Discharge Instr - AVS First Page* Onelia Acevedo DO - 12/03/2018 11:10 AM EDT You came to [facility] for sepsis, urinary tract infection, and [...] tube feeds and free water by a nut culler that helped treat your high sodium level [...] a part of your care. * Discharge Instr - IP PHARMACY* Ila Rabago CPhT - 11/29/2018 9:48 [...] Care Instructions Your Care Instructions Osteomyelitis (say qj-rznt-ba-er-ps-ML-tus) is a bone infection. It is caused [...] your doctor if you can take an dgnm-omt-lvgbudp medicine. Do mild exercise and stretching if [...] Log into your personal health record on [email or web address] and enter B364 in the Education box to learn more about Osteomyelitis: Care Instructions. Current as of: May 25, 2018 Content Version: 12.0 1733-4444 Syntaxin. Care instructions adapted under license by your healthcare professional. If you have questions about a medical condition or this instruction, always ask your healthcare professional. [employer]tax[employer] disclaims any warranty or liability for your [...] Put on bandages as your doctor or sports medicine specialist says. Keep healthy tissue around the [...] Log into your personal health record on [email or web address] and enter F114 in the Education box to learn more about Pressure Injuries: Care Instructions. Current as of: May 25, 2018 Content Version: 12.0 5339-8031 Syntaxin. Care instructions adapted under license by your healthcare professional. If you have questions about a medical condition or this instruction, always ask your healthcare professional. [employer]in disclaims any warranty or liability for your [...] day. When should you call for help? [id number] anytime you think you may need emergency [...] Log into your personal health record on [email or web address] and enter T383 in the Education box to learn more about Sepsis: Care Instructions. Current as of: May 22, 2018 Content Version: 12.0 0834-3382 Syntaxin. Care instructions adapted under license by your healthcare professional. If you have questions about a medical condition or this instruction, always ask your healthcare professional. Syntax[employer] disclaims any warranty or liability for your use of this information. in this encounter* Discharge Instr - Care Coordination* Zamzam Swartz MSW LSW - 09/25/2019 11:39 AM EST [facility] [phone] documented in this encounter* Discharge Instr - AVS First Page* Santosh Kelley DO - 10/24/2019 11:53 AM EST Claudine was admitted to [facility] for worsening muscle tightness and agitation. [...] LSW - 10/22/2019 8:48 AM EST [facility] P: [phone] F: [phone] [facility] F: [phone] * Attachments The following attachments cannot be sent through Care Everywhere. * Cerebral Palsy: Pediatric (Eritrean) * Dehydration (Eritrean) documented in this encounter* Instructions* Elodia Garces CNP - 01/22/2020 [facility] EM[facility]ENC[facility]PARTMENT The physician and staff of [...] please request to talk with a Patient Instrument Calibrator fabric worker supervisor so that we can address your concern while you are here. Thank you for choosing us for your healthcare needs. Call your Primary Care Provider (PCP) to schedule a follow up appointment to discuss your symptoms and your ER visit. If you do not have a PCP, you can contact the [facility] Physician Referral Service listed below to establish [...] You may find a provider through the [facility] Physician Referral Service by calling [phone] ([phone]) or by visiting: [email or web address] Seek medical attention immediately if you have worsening symptoms or other concerns. Claudine Thank You for choosing us for your Emergency Care! * Attachments The following attachments cannot be sent through Care Everywhere. * PICC (Peripherally Inserted Central Catheter) (Eritrean) documented in this encounter* Instructions* Kj Moncada, - 05/04/2019 Keep the IV safe and [...] Everywhere. * UTI (Urinary Tract Infection): Female (Eritrean) documented in this encounter* Instructions* Rene Dunaway [...] You may find a provider through the [facility] Physician Referral Service by calling [phone] ([phone]) or by visiting [email or web address] Seek medical attention immediately if you have worsening symptoms or other concerns. Claudine, Thank You for choosing us for your Emergency Care! * Attachments The following attachments cannot be sent through Care Everywhere. * PICC (Peripherally Inserted Central Catheter) (Eritrean) * Getting Treatment Through a PICC or Central Line: Video (Eritrean) documented in this encounter Hospital Course * Onelia Acevedo DO - 12/05/2018 1:33 PM EDT DISCHARGE SUMMARY Patient: Claudine Joseph Date of : 1990 Site: [facility] Family Provider: Colette Goode MD Admit [...] sacral ulcer, GERD, hypernatremia who presented to [facility] from home on 11/28/2018 with complaints of [...] water at 20 mL/hr. D5 infusion discontinued. Continuous Still Operator consulted. Tube feeds initiated 11/30. Chronic hypoxic [...] pneumonitis given increased respiratory requirements. Presenting with htuwo007.9F, HR 138, RR 25. CXR limited by [...] 100 mL, Refills: 0 Comments: [facility] [phone] cholecalciferol, vitamin D3, (VITAMIN D3) 2,000 unit [...] Physician(s) Family Provider: Colette Goode MD, Address: [address] [place] [address] / [facility] [address] Follow Up: Colette Goode MD [address] [place] [address] [phone] Follow up Please schedule an appointment for hospital follow up. Marielle Duque MD [address] [id number] Follow up Please follow up as soon as possible for wound care. Patient instructions, including activity, were given to the patient/family at discharge. Please seethe After Visit Summary in the electronic medical record for details. Time spent on discharge: < 30 minutes Completed by: Onelia Colon DO on 12/05/18, 1:33 PM in this encounter* Marck June, - 02/14/2020 10:20 AM EDT [facility] DISCHARGE SUMMARY Claudine Joseph Account: [id number] Admitted: 02/12/2020 Discharge Date/Time: 02/14/20 2:46 PM Handoff to PCP PCP to address the following 1. Continue doxycycline if needed after clindamycin course completed. Clinical Summary Claudine Joseph is a 29 y.o. female with a history of spastic cerebral palsy, quadriplegia, chronic respiratory failure, seizures, decubitus ulcers with wound vac, chronic sage, and feeding tube who presented to [facility] 02/12/2020 with cough and fever. Found to [...] PEG tube in place, resumed tube feeding. Continuous Still Operator followed. 8. Chronic Urinary Retention: as above, [...] Your Medications These medications were sent to [facility] [address] [place] [address] clindamycin 75 mg/5 mL solution Physician(s) Family: Colette Goode MD, , Address: [address] [place], [place] [id number] Follow Up: Elroy Henning CNP [address] [place], [place] [id number] Go on 02/19/2020 Appointment at 2pm; please call by Wednesday to cancel if unable to make appointment Colette Goode MD [address] [place], [place] [phone] Go in 1 week(s) Additional Information: Patient seen and examined day of discharge. For more information regarding patient's care, including complete radiology reports, please contact [facility] at Patient instructions, including activity, were given to the patient/family at discharge. Please seethe After Visit Summary in the medical record for details. Time spent on discharge: > 30 minutes Completed by: Marck June on 02/14/20, 2:46 PM documented in this encounter* Elodia Mendoza MD - 08/13/2020 5:44 PM EST MED[facility] DISCHARGE SUMMARY Claudine Joseph Account: [id number] Admitted: 08/13/2020 Discharge Date/Time: 08/13/20 / 6:34 [...] sepsis due to UTI who presented to [facility] 08/13/2020 with for wound infection, reportedly needs [...] Follows with Dr. Marielle Duque out of [facility] for wound care, next appt 08/16/20. Pt already has home meropenem infusion set up per Dr. Duque and presents for PICC line placement (hx of bad experience at [facility]). Blood Cx x 2 08/13/20. Recommended 24 [...] Physician(s) Family: Colette Goode MD, , Address: [address] [place] [address] [place] [address] Follow Up: No follow-up provider specified. Additional Information: Patient seen and examined day of discharge. For more information regarding patient's care, including complete radiology reports, please contact [facility] at Patient instructions, including activity, were given to the patient/family at discharge. Please seethe After Visit Summary in the medical record for details. Time spent on discharge: > 30 minutes Completed by: Elodia Mendoza on 08/13/20, 6:34 PM documented in this encounter* Charline Richardson MD - 09/25/2020 12:02 PM EST [facility] DISCHARGE SUMMARY Claudine Joseph Account: [id number] Admitted: 09/23/2020 Discharge Date/Time: 09/25/20 / 12:02 PM Handoff to PCP Routine hospital follow up Clinical Summary Claudine Joseph is a 30 y.o. female with a history of spastic cerebral palsy, quadriplegia, chronic respiratory failure, seizures, decubitus ulcers with wound vac, chronic sage and PEG tube who presented to [facility] 09/23/2020 with need for placement, found to be COVID-19 positive on admit. 1. COVID-19 Infection: Tested positive 09/23/20. Appears asymptomatic but difficult to evaluate due to nonverbal status. No increased O2 requirements. Supportive care. 2. Need for Placement: patient presented to [facility] for outpatient appointment but mother had syncopal [...] with known minor breatkthrough seizures. Continued home KeppraRodrigoictal. Discharge Medications Medication List CONTINUE taking these [...] Physician(s) Family: Colette Goode MD, , Address: [address] [place] [address] Follow Up: Colette Goode MD [address] [place] [address] Schedule an appointment as soon as possible for a visit in 1 week(s) Additional Information: Patient seen and examined day of discharge. For more information regarding patient's care, including complete radiology reports, please contact [facility] at Patient instructions, including activity, were given to the patient/family at discharge. Please seethe After Visit Summary in the medical record for details. Time spent on discharge: > 30 minutes Completed by: Charline Richardson on 09/25/20, 12:02 PM documented in this encounter* Jerri Munroe CNP - 03/22/2020 1:27 PM EDT [facility] DISCHARGE SUMMARY Claudine Joseph Account: [id number] Admitted: 03/21/2020 Discharge Date/Time: 03/22/20 1:27 PM Handoff to PCP Routine hospital follow up Clinical Summary Claudine Joseph is a 29 y.o. female with a history of spastic cerebral palsy, quadriplegia, chronic respiratory failure, seizures, decubitus ulcers with wound vac, chronic sage and PEG tube with recent admission 02/11-02/14/20 for sepsis due to aspiration pneumonia. She represented to [facility] 03/21/2020 with concern for sepsis by mother [...] dysphagia: Peg tube in place. TFs per nut culler. 7. Chronic urinary retention: with chronic Sage. [...] Your Medications These medications were sent to [facility] [address] [place] [address] Hours: 8:00 AM to 7:00 PM Mon-Fri cefdinir 125 mg/5 mL suspension Physician(s) Family: Colette Goode MD, , Address: [address] [place] [address] / [facility] [address] Follow Up: Colette Goode MD [address] [place], [place] [phone] Follow up Please call to arrange 1-2 week follow up. [facility] Follow up Please follow up as already scheduled. Additional Information: Patient seen and examined day of discharge. For more information regarding patient's care, including complete radiology reports, please contact [facility] at Patient instructions, including activity, [...] reviewed, including documentation from previous hospitalizations and franchise field consultant recommendations as summarized below. Briefly, patient [...] Blood Cell SPECT Wilder Noland MD [address] [place] [address] Status Reason Specialty Diagnoses / Procedures Referred By Contact Referred To Contact Pending Review Radiology Diagnoses Wound healing, delayed Procedures NM Bone Limited Study Wilder Noland MD [address] [place] [address] Status Reason Specialty Diagnoses / Procedures Referred By Contact Referred To Contact Pending Review Radiology Diagnoses Wound healing, delayed Procedures NM White Blood Cell Prep Wilder Noland MD [address] [place] [address] Status Reason Specialty Diagnoses / Procedures Referred By Contact Referred To Contact Authorized Specialty Services Required/Patie nt's Best Interest Home Health Services Diagnoses Sepsis, due to unspecified organism, unspecified whether acute organ dysfunction present (HCC) Acute on chronic respiratory failure with hypoxia and hypercapnia (HCC) 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HCC) Rashid Mejia MD [address] [place] [address] Status Reason Specialty Diagnoses / Procedures Referred By Contact Referred To Contact Pending Review Patient Preference Home Health Services Diagnoses Severe sepsis (HCC) Cerebral palsy, unspecified type (HCC) Bashir Carmona MD [address] [place] [address] Status Reason Specialty Diagnoses / Procedures Referred By Contact Referred To Contact Pending Review Specialty Services Required/Patie nt's Best Interest Home Health Services Diagnoses Severe sepsis (HCC) Bashir Carmona MD [address] [place] [address] Status Reason Specialty Diagnoses / Procedures Referred By Contact Referred To Contact Pending Review Specialty Services Required/Patie nt's Best Interest General Surgery Diagnoses Pressure injury of right ischium, stage 3 (HCC) Other cerebral palsy (HCC) Incontinence of feces, unspecified fecal incontinence type Werner Kaplan Jr., MD [address] [place] [address] Wilder Cross DO [address] [place] [address] Status Reason Specialty Diagnoses / Procedures Referred By Contact Referred To Contact Authorized Specialty Services Required/Patien t's Best Interest Urology Diagnoses Pressure injury of right ischium, stage 3 (HCC) Other cerebral palsy (HCC) Other urinary incontinence Werner Kaplan Jr., MD [address] [place] [address] Marielle Salgado MD [address] [facility] [address] [address] Status Reason Specialty Diagnoses / Procedures Referred By Contact Referred To Contact Authorized Specialty Services Required/Patien t's Best Interest General Surgery Diagnoses Pressure injury of right ischium, stage 3 (HCC) Werner Kaplan Jr., MD [address] [place] [address] Wilder Cross DO [address] [place] [address] Specialty Diagnoses / Procedures Referred By Contac t Referred To Contact Rehabilitation Diagnoses Cerebral palsy, unspecified type (HCC) Stage II pressure ulcer of right buttock (HCC) Cynthia Chan, [place] [address] [place] [address] [place] [address] Referral ID Status Reason Start Date Expiration Date V isits Requested Visits Authorized [id number] Authorized 04/14/2021 04/14/2022 1 1 Specialty Diagnoses / Procedures Referred By Contac t Referred To Contact Diagnoses 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HCC) Ruma Godwin, ACTIVITIES ATTENDANT [address] [facility] [address] [place] [address] SERVICE [address] IN SYSTEM Referral ID Status Reason Start Date Expiration Date Visits Requested Visits Authorized [id number] Authorized Specialty Services Required/Pat ient's Best Interest 05/06/2021 05/06/2022 1 1 Specialty Diagnoses / Procedures Referred By Contact Referred To Contact Pediatric Gastroenterology / Gastroenterology Diagnoses Gastrostomy tube dysfunction (HCC) Yany Wright, ACTIVITIES ATTENDANT [address] [facility] [address] [place] [address] Referral ID Status Reason Start Date Expiration Date V isits Requested Visits Authorized [id number] Authorized 06/18/2021 06/18/2022 1 1 Referral ID Status Reason Start Date Expiration Date V isits Requested Visits Authorized [id number] Closed Specialty Services Required/Lupis ent's Best Interest 05/06/2021 05/06/2022 1 1 Specialty Diagnoses / Procedures Referred By Contac t Referred To Contact Home Health Services Diagnoses 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HCC) Donna Brush, ACTIVITIES ATTENDANT [address] [facility] [address] [place] [address] Referral ID Status Reason Start Date Expiration Date Visits Requested Visits Authorized [id number] Authorized Specialty Services Required/Pat ient's Best Interest 08/27/2022 1 1 Specialty Diagnoses / Procedures Referred By Contac t Referred To Contact Home Health Services Diagnoses Seizure (HCC) Intrathecal pump infection, initial encounter (HCC) Breakdown (mechanical) of other nervous system device, implant or graft, sequela Khadar Yoo MD [address] [facility] [address] [place] [address] Referral ID Status Reason Start Date Expiration Date Visits Requested Visits Authorized [id number] Pending Review Patient Preference 2 07/20/2023 1 1 Specialty Diagnoses / Procedures Referred By Gera mariano Referred To Contact Neurology Diagnoses Cervical dystonia Celena Fields MD [address] [facility] [address] [place] [address] Referral ID Status Reason Start Date Expiration Date Visits Requested Visits Authorized [id number] Authorized Specialty Services Required/Pat ient's Best Interest 10/20/2022 10/20/2023 1 1 Scheduling Instructions With a movement disorder specialist please for cervical dystonia. Specialty Diagnoses / Procedures Referred By Gera mariano Referred To Contact Diagnoses 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HCC) Celena Fields MD [address] [facility] [address] [place] [address] OF SERVICE NOT IN SYSTEM Referral ID Status Reason Start Date Expiration Date V isits Requested Visits Authorized [id number] Closed Specialty Services Required/Lupis ent's Best Interest 11/03/2022 11/03/2023 1 1 Specialty Diagnoses / Procedures Referred By Gera mariano Referred To Contact Home Health Services Diagnoses Spasticity Cerebral palsy, unspecified type (HCC) Celena Fields MD [address] [facility] [address] [place] [address] Referral ID Status Reason Start Date Expiration Date Visits Requested Visits Authorized [id number] Authorized Specialty Services Required/Pat ient's Best Interest 02/03/2023 02/03/2024 1 1 Scheduling Instructions [facility] [phone] Specialty Diagnoses / Procedures Referred By Gera mariano Referred To Contact Diagnoses 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HCC) Madisyn Marquez CNP [address] [facility] [address] [place] [address] Referral ID Status Reason Start Date Expiration Date Visits Re quested Visits Authorized [id number] Closed 1 1 Specialty Diagnoses / Procedures Referred By Contac t Referred To Contact AdrianaYany, ACTIVITIES ATTENDANT [address] [facility] [address] [place] [address] Referral ID Status Reason Start Date Expiration Date Visits Re quested Visits Authorized [id number] Closed 1 1 Specialty Diagnoses / Procedures Referred By Contac t Referred To Contact Diagnoses Intractable symptomatic generalized epilepsy (HCC) AdrianaYany, ACTIVITIES ATTENDANT [address] [facility] [address] [place] [address] Referral ID Status Reason Start Date Expiration Date Visits Re quested Visits Authorized [id number] Closed 1 1 Specialty Diagnoses / Procedures Referred By Contac t Referred To Contact Rehabilitation Diagnoses Spasticity 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HCC) Ruma Godwin, ACTIVITIES ATTENDANT [facility] [facility] [address] [place] [address] Referral ID Status Reason Start Date Expiration Date V isits Requested Visits Authorized [id number] Authorized 12/13/2023 12/12/2024 1 1 Specialty Diagnoses / Procedures Referred By Contac t Referred To Contact Diagnoses Intractable symptomatic generalized epilepsy (HCC) Richar Talbert MD [address] [facility] [address] [place] [address] Referral ID Status Reason Start Date Expiration Date Visits Re quested Visits Authorized [id number] Closed 1 1 Referral ID Status Reason Start Date Expiration Date Visits Re quested Visits Authorized [id number] Closed 02/21/2024 02/20/2025 1 1 Referral ID Status Reason Start Date Expiration Date Visits Re quested Visits Authorized [id number] Closed 1 1 Specialty Diagnoses / Procedures Referred By Contac t Referred To Contact Diagnoses 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HCC) Ruma Godwin, ACTIVITIES ATTENDANT [address] [facility] [address] [place] [address] Referral ID Status Reason Start Date Expiration Date Visits Re quested Visits Authorized [id number] Closed 1 1 Specialty Diagnoses / Procedures Referred By Contac t Referred To Contact Diagnoses Seizure disorder (HCC) Yany Wright, ACTIVITIES ATTENDANT [address] [facility] [address] [place] [place] [address] Referral ID Status Reason Start Date Expiration Date Visits Re quested Visits Authorized [id number] Closed 1 1 Chief Complaint and Reason [...] 2025 5: 10pm [facility] r 2024 9:42am wound May 03, 2025 [...] Source Comments Assessment & Plan Note - Nikhil Pandya DO - 07/26/2017 3:24 PM ESTAssessment & Plan Note - Nikhil Pandya, DO - 07/26/2017 3:22 PM EST Miscellaneous Notes (unrecog nized section and content) Associated Problem(s): Generalized edema New onset. Again, unclear etiology. ? Medication related, ? CHF, ? Low protein state. Check echo, Holter, prealbumin, CMP, TSH to further evaluate. Previous rose grading supervisor gave lasix. Would not use at this [...] patient. I discussed the patient with the RETAIL SERVICE REPRESENTATIVE/PA. I agree with the RETAIL SERVICE REPRESENTATIVE/PA treatment. I agree with the RETAIL SERVICE REPRESENTATIVE/PA plan of care. I agree with the RETAIL SERVICE REPRESENTATIVE/PA disposition as documented. History severely limited by [...] states that they receive their supplies through [facility] and she is open to changing tube [...] is not running) Awaiting return call from [facility] to discuss tube feed. If [facility] is not able to arrange delivery of Replete for discharge today there would be no concern in having mom use supply that she already has of Ensure Plus until Replete can be delivered. Courtney Peter RD, [place] [phone] Culture and pathology results reviewed. Cultures are negative, and pathology shows chronic osteomyelitis, as expected. As previously stated, would NOT recommend long term care pharmacist antibiotic therapy in the setting of chronic osteomyelitis with skin defect. I recommend ongoing aggressive wound care- she should follow up with Dr. Duque at [facility] as planned. Danitza Rowland DO [facility] Infect[facility] Plan for discharge home today. Bone cultures NGTD x 72 hours and right ischial bone biopsy shows chronic osteomyelitis and benign soft tissue. Awaiting final Infectious Disease recommendations. Appreciate assistance. Dietitian to meet with patient's mom to discuss proper feeds for wound healing and free water prior to discharge today. Onelia Gutierrez DO PGY1 [facility] P: [phone] Doing well postop. Discussed plan with her [...] Page with questions or concerns. CLAUDINE JOSEPH CSN [id number] 1990 DATE 12/02/2018 OPERATIVE REPORT SURGEON RAD LUQUE MD INTERNIST MEDICAL DOCTOR MD PETER PEREZ MD, RESIDENT PREOPERATIVE DIAGNOSES Osteomyelitis, [...] were correct. MD Brendan CESPEDES 12/02/2018 12:07 [id number] T 12/02/2018 20:50 CLV/MODL Spoke with patient's caregiver to give update on plan of care as patient is s/p I&D/bone biopsy. All questions answered. Plan to restart tube feeds and free water once she returns to the floor. Onelia Gutierrez DO PGY1 [facility] P: [phone] Orthopaedic Surgery Post-Op Plan 28F with stage [...] (28 y.o.) Date of Service: 12/02/2018 CSN: [id number] Procedure(s): INCISION AND DRAINAGE WITH BONE BIOPSY OF RIGHT ISCHIUM Pre-Operative Diagnoses: * RIGHT ISCHIUM OSTEOMYELITIS Post-Operative Diagnoses: Surgeon(s) and Role: * Rad Luque MD - Primary Anesthesiologist: Fidencio Buckner MD Excel Vba Developer Orientee: Linda Ibarra RN Excel Vba Developer Preceptor: Falguni Corrales RNfish processorPower Press Supervisor: Wilian Mckinney Scrub Person Preceptor: ST Devonte [...] ischium. Per family medicine quick note on 12/02' Sacral pressure ulcer with possible abscess and osteomyelitis of right ischium: wound care following, packed with aquacel, clear aid barrier ointment applied. Orthopedic surgery consulted, plan for bone biopsy, culture and debridement '. Note: Pressure ulcer documentation must include site, stage, and POA (Present on Admission) Please document the stage of ulcer. For Example: Sacral pressure ulcer stage 4 Sacral pressure ulcer stage 3 Sacral pressure ulcer (please stage) Unstageable Other (please specify) Unable to determine Thank you, Jory Condon CCDS, CDIP, CRCR, CCS Clinical Paper Folder [phone] After business hours you may contact Marisol Hansen at [phone] (Weekdays until 10 PM and weekends 8 [...] with questions. Donnie Mock PGY5, , MS [phone] Pager If you cannot reach me, please page [phone] Patient seen and examined independently of Dr. Gutierrez, please see daily progress note for further details. A/P: Claudine Joseph is a 28 y.o. female with has a past medical history of Acute respiratory failure ([facility]), Allergic rhinitis, Anoxic brain damage ([facility]), Aspiration, chronic pulmonary, Bowel and bladder incontinence, Cerebral palsy ([facility]), Chronic respiratory failure with hypoxia ([facility]), Constipation, GERD (gastroesophageal reflux disease), MRSA (methicillin resistant Staphylococcus aureus) (04/2016), Nonverbal, Postoperative retention of urine, Restrictive lung disease due to kyphoscoliosis, and Seizures ([facility]). who presented with sepsis. 1. Sacral [...] food qAM, Ensure, and TF/fluids overnight. - Continuous Still Operator consulted and following, appreciate recommendations. 5. Chronic [...] last 7 days Lab Units 12/01/18 0840 11/30/184 11/30/18 1109 SODIUM mmol/L 144 146* 151* POTASSIUM mmol/L 3.5 3.5 3.6 CHLORIDE mmol/L 103 104 106 BICARB mmol/L 33* 34* 36* BUN mg/dL 16 13 14 CREATININE mg/dL 0.40 0.31* <0.20* GLUCOSE mg/dL 134* 114* 112* CALCIUM mg/dL 9.1 9.0 9.3 Imaging: No new imaging overnight Stephen Jarrell DO PGY-3 [facility] Pager: [phone] The patient is being evaluated for a low risk surgery. Cannot assess the patient's symptoms as she is non-verbal. The patient's functional capacity is <4 METS. The patient has the following pertinent Revised Cardiac Risk Index Indicators none. This represents a 3.9% 30 day risk of , [place], or cardiac arrest. Lin 0.8% risk of [...] prior. Richar Brandt MD PGY-1 Pager #: [phone] Associated Problem(s): Sacral decubitus ulcer 28 y/o [...] obtained from mother at bedside -NPO at MT - Mother/caregiver of patient provided information regarding where she would like medications to be sent upon discharged. Attempted to speak with director of casework services to relay this information but was unsuccessful. Message left for director of casework services and information placed in patient's chart (yellow sticky note). Onelia Gutierrez DO [address] P: [phone] Patient's Na has normalized to 144 this morning. Will discontinue free water flushes. Order placed for continuous free water per Nutrition recommendations for 20 mL/hr. Onelia Gutierrez DO [address] P: [phone] Spoke with Citlalli Peter RD concerning tube feedings. Patient has a history of emesis with bolus feedings. Continuous feedings at this time are most consistent with home regiment. Nutrition to follow along throughout hospitalization and will assist with disposition and recommendations for home-going nutrition regimen. Appreciate assistance from nutrition services. Onelia Gutierrez DO [address] P: [phone] Evaluated patient after paged by [...] rate for future doses. Onelia Gutierrez DO PGY1 [facility] P: [phone] Spoke with another radiologist who re-read the [...] impact the patient's care. Onelia Gutierrez DO PGY1 [facility] P: [phone] I was physically present to see and evaluate the patient on 11/29/18. I discussed the case with the consultant intern physician and actively participated in the critical and camejo portions of the management provided. I agree with the consultant intern's findings and plan as documented in [...] Huber Marquez MD Internal Medicine, PGY-2 Pager: [phone] in this encounter 09/27/19 Addendum: Thank you [...] Thank you, JOSE FRANCISCO Bryson, RN Clinical Paper Folder [phone] After business hours you may contact Marisol Hansen at [phone] (Weekdays until 10 PM and weekends 8 [...] Thank you, JOSE FRANCISCO Bryson, RN Clinical Paper Folder [phone] After business hours you may contact Marisol Hansen at [phone] (Weekdays until 10 PM and weekends 8 [...] Accepting [facility] (If transfer [facility] of unit[facility] Active Diagnoses: 1. Acute Hypoxic Respiratory Failure: CAP with risk factors for MDR organisms and aspiration. Enterobacter cloacoa from sputum Cx. Covering with cefepime. 2. Complicated UTI: Chronic indwelling sage. Enterococcus and pseudomonas in urine. Sage exchanged. Covering with vanc/cefepime for total of 7 day course. Active Consultations/Recommendations NA Hospital/ICU Course Synopsis: Claudine Joseph is a 29 y.o. female who presented to [place] 09/19/2019 with aspiration event. She worsened on [...] Fidencio Ye DO Internal Medicine, PGY-2 Pager: [phone] Pulmonary & Critical Care Full resident consult [...] Lalo Wellington DO Pulmonary & Critical Care [facility] Pulmonary & critical Care Full [...] Lalo Wellington DO Pulmonary & Critical Care [facility] Response RN note: called to [...] potential need for respiratory support. Discussed with tension worker works manager, accepting of transfer. Peg listed as primary [...] determine Thank you, CAITY ChristineN, RN Clinical Paper Folder [phone] After business hours you may contact Marisol Hansen at [phone] (Weekdays until 10 PM and weekends 8 [...] by: Precious Herrera MD Authorized by: Precious Herrera MD Interpreted by ED attending physician Rhythm: sinus rhythm and sinus tachycardia BPM: 124 ST Segments: ST segments normal T Waves: T waves normal T Inversion: V3, V4 and V5 Clinical impression: non-specific ECG and sinus tachycardia I personally interviewed the patient. I personally examined the patient. I discussed the patient with RETAIL SERVICE REPRESENTATIVE/PA. I agree with the RETAIL SERVICE REPRESENTATIVE/PA treatment plan. I agree with the RETAIL SERVICE REPRESENTATIVE/PA plan of care. I agree with the RETAIL SERVICE REPRESENTATIVE/PA dispo as documented. . . This is [...] Colette (*) Clarity, Urine Cloudy (*) Specific Bradshaw 1.030 (*) pH, Urine 8.0 (*) Protein, [...] Procedure Abnormality Status --------- ------ CBC Auto Differential[[id number]] Abnormal Final result Please view results for [...] with notes in system, Called to the tension worker Dr Duque Message left with him to [...] be removed, states she was a former [employer]. Discussed this is not ideal to use for her home antibiotics, discussed that IV's can infiltrate and to notify her home health company as soon as possible if this occurs. Recommended removal if family consents to PIV removal upon discharge. Patient discharged AMA with mother and possible PIV access Elodia Mendoza MD [facility] [phone] (office) I personally saw, evaluated, and examined [...] presents to the ED as her primary cabinet installer is unable to care for her at this time. Patient's mother reportedly brought her to [place] today for a scheduled appointment; however, her [...] pneumonia 04/2016; Allergic rhinitis Anoxic brain damage ([facility]) Aspiration, chronic pulmonary Bowel and bladder incontinence Cerebral palsy (HCC) Chronic osteomyelitis of pelvic region, right (HCC) 2019 required right ischial debridement, followed by Dr. Noland of plastics Chronic respiratory failure with hypoxia ([facility]) 3 L NC, followed by Dr. Stephy Cisse and Dr. 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 baclofen pump since 1999, followed at [facility] neuro baclofen pump clinic Nonverbal Answers yes with very long blinks per adoptive parent PEG (percutaneous endoscopic gastrostomy) status ([facility]) Presence of intrathecal baclofen pump 1999 [...] at the following links: For Healthcare Providers: https://www.fda.gov/media/612205/download For Patients: https://www.fda.gov/media/506020/download BASIC METABOLIC PANEL - Abnormal; Notable for the following components: Creatinine 0.33 (*) BUN/Creatinine Ratio 42.4 (*) All other components within normal limits Narrative: The eGFR should be used for monitoring renal function only and not for medication dosing. CBC AND DIFFERENTIAL Narrative: The following orders were created for panel order CBC w/ Diff. Procedure Abnormality Status --------- ------ CBC Auto Differential[[id number]] In process Please view results for these tests on the individual orders. CBC WITH AUTO DIFFERENTIAL Imaging Results XR Chest 1 View Final Result No significant change Workstation ID: [id number] MDM: Claudine Joseph is a 30 y.o. female with a PMH of spastic cerebral palsy, chronic respiratory failure (baseline 2 L O2 requirement) who presents to the ED as her primary cabinet installer is unable to care for her at [...] this time, we consulted the ED social science teacher who placed multiple referrals for nursing facility admission. However, the social science teacher subsequently informed me that she would not [...] from Wound culture per MD request from [place]: culture routine on 2020-01-15 Bacteria identified Aer [...] the patient. I discussed the patient with RETAIL SERVICE REPRESENTATIVE/PA. I agree with the RETAIL SERVICE REPRESENTATIVE/PA treatment plan. I agree with the RETAIL SERVICE REPRESENTATIVE/PA plan of care. I agree with the RETAIL SERVICE REPRESENTATIVE/PA dispo as documented. Patient is a 29-year-old [...] section and content) DATE CREATED AUTHOR 02/15/2018 [facility] DATE CREATED AUTHOR AUTHOR'S ORGANIZ ATION 02/23/[address] [facility] DATE CREATED AUTHOR AUTHOR'S ORGANIZ ATION 08/17/2018 [facility] DATE CREATED AUTHOR AUTHOR'S ORGANIZ ATION 07/19/[address] [facility] DATE CREATED AUTHOR AUTHOR'S ORGANIZ ATION 02/11/2021 [facility] DATE CREATED AUTHOR AUTHOR'S ORGANIZ ATION 12/23/2021 [facility] DATE CREATED AUTHOR AUTHOR'S ORGANIZ ATION 07/28/2022 [facility] DATE CREATED AUTHOR AUTHOR'S ORGANIZ ATION 01/18/2024 [facility] DATE CREATED AUTHOR AUTHOR'S ORGANIZ ATION 02/19/2025 [facility] DATE CREATED AUTHOR AUTHOR'S ORGANIZ ATION 05/12/2025 [facility] DATE CREATED AUTHOR AUTHOR'S ORGANIZ ATION 05/14/2025 [facility] DATE CREATED AUTHOR AUTHOR'S ORGANIZ ATION 05/20/2025 [facility] Reason for Visit (unrecogniz ed section and content) Reason Comments colostomy creation pt in need of colost sebastian creation for surgical debridement of presurre ulcer. Specialty Diagnoses / Procedures Referred By Contdebi t Referred To Contact General Surgery Diagnoses Pressure injury of right ischium, stage 3 (HCC) Werner Kaplan Jr., MD [address] [address] Wilder Cross DO [address] [place] [address] Referral ID Status Reason Start Date Expiration Date V isits Requested Visits Authorized [id number] Closed Specialty Services Required/Lupis ent's Best Interest 01/13/2021 01/13/2022 1 1 Reason Comments Abdominal Pain Reason Comments Fever Respiratory Distress Status Reason Specialty Diagnoses / Procedures Referre d By Contact Referred To Contact Reason Comments Seizures Follow up seizures Reason Comments Establish Care Pt here for eval on ulcer under left buttock. Been a year in [facility] per mother Peg. Have tried everything to help and nothing has worked Status Reason Specialty Diagnoses / Procedures Referred By Contact Referred To Contact Closed Specialty Services Required/Patien t's Best Interest Plastic Surgery Diagnoses Wound healing, delayed Marielle Duque MD [address] [place] [address] Wilder Noland MD [address] [place] [address] Status Reason Specialty Diagnoses / Procedures Referred By Contact Referred To Contact Pending Review Radiology Diagnoses Wound healing, delayed Procedures NM White Blood Cell Prep Wilder Noland MD [address] [place] [address] Reason Comments Wheezing Shortness of Breath Status Reason Specialty Diagnoses / Procedures Referre d By Contact Referred To Contact Diagnoses Community acquired pneumonia, unspecified laterality Sepsis, due to unspecified organism, unspecified whether acute organ dysfunction present (HCC) Pneumonia Reason Comments Dysuria Status Reason Specialty [...] Sage catheter Chronic respiratory failure with hypoxia (HCC) Sacral wound, initial encounter Pressure injury of right buttock, stage 3 (HCC) Reason Comments Seizures 6 mo. F/U. ROSIE 08/16 . Pt has been really good. Seizure activity is the same(usually everyday), but does not want med change. Says [facility] does not work long term care pharmacist. Valium is still best bet. Last seizure [...] (HCC) Chronic respiratory failure with hypoxia (HCC) COVID-19 virus infection COVID-19 Reason Comments Wound Check Reason Comments Seizures Pt on w/ MOM for fol low up. Reports seizures everyother day. Medication Refill Reason Comments Follow-up yearly Reason Comments Cellulitis Status Reason Specialty Diagnoses / Procedures Referre d By Contact Referred To Contact Diagnoses Wound infection Acute UTI Indwelling catheter present on admission Cerebral palsy, unspecified type (HCC) UTI (urinary tract infection) Reason Comments Follow-up Pt here for review o f test results Reason Comments Medication Refill Reason Comments Wound Check Status Reason Specialty Diagnoses / Procedures Referred By Contact Referred To Contact Closed Specialty Services Required/Patien t's Best Interest General Surgery Diagnoses Pressure injury of right ischium, stage 3 (HCC) Werner Kaplan Jr., MD [address] [facility] [address] [place] [address] Wilder Cross, [address] [facility] [address] [place] [address] Reason Comments Wound Check Multi-layer Wrap Reason [...] pressure ulcer of right buttock (HCC) Cynthia Chan CNP [address] [place] [address] Rehab Wheelchair [address] [address] Referral ID Status Reason Start Date Expiration Date Visits Re quested Visits Authorized [id number] Closed 04/14/2021 04/14/2022 1 1 Reason Comments [...] Expiration Date Visits Re quested Visits Authorized [id number] 1 1 Reason Onset Date Comments Medication Refill 12/10/2022 Reason Comments Consult ref by Celena Fields dx Cervical dystonia [G24.3] Specialty Diagnoses / Procedures Referred By Gera mariano Referred To Contact Neurology Diagnoses Cervical dystonia Celena Fields MD [address] [facility] [address] [place] [address] Sunita Mejia MD [address] [place] [address] [address] [place] [address] Referral ID Status Reason Start Date Expiration Date V isits Requested Visits Authorized [id number] Closed Specialty Services Required/Lupis ent's Best Interest 10/20/2022 10/20/2023 1 1 Reason Onset Date Comments Medication Refill 08/26/2023 Reason Comments Seizures Pt here for follow u p. 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 Needs refills. Reason Comments Follow-up Follow up, about 3 w eeks ago she had aspiration pneumonia and still has a midline in her arm. Mom has a O2 company that wants to do a pulse ox test, she wants to do it at home but needs a form to authorize it. Reason Comments Occupational Therapy Neuro Specialty Diagnoses / Procedures Referred By Gera t Referred To Contact Rehabilitation Diagnoses Spasticity 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HCC) Ruma Godwin, ACTIVITIES ATTENDANT [address] [facility] [address] [place] [address] Op Occ Therapy [address] [place] [address] Referral ID Status Reason Start Date Expiration Date V isits Requested Visits Authorized [id number] Authorized 12/13/2023 12/12/2024 1 30 Reason Comments Seizures Pt here for follow u p. 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 Reason Onset Date Comments Medication Refill 02/21/2024 Reason Comments Procedure Botox injections Reason Comments Follow-up Reason Onset Date Comments Medication Management 04/05/2024 Reason Comments Seizures Pt here for follow u p. Ab Initio Etl Developer reports smaller seizure events since ROSIE. Reason Onset Date Comments Medication Refill 08/01/2024 Reason Comments Seizures Pt calling in for fo llow up with cabinet installer. Ab Initio Etl Developer reports frequent seizures since ROSIE. Reason Comments Seizures Pt calling in for fo llow up. Pt cabinet installer reports the patient is still having seizure activity. Reason Onset Date Comments Medication Refill 01/31/2025 Cailin Tang, TAMMY - 10/07/2018 8:44 PM Rhonda Richmond RN - 10/07/2018 5:24 PM Perry Caballero, ROCKY - 10/07/2018 4:59 PM Anastasiia Chavez RN - 10/07/2018 4:25 PM EST ED Notes (unrecognized secti on and content) Reviewed Rx for doxycycline to caregiver. F/u with FMD and return to ER if symptoms worsen. Verbalizes understanding. Phlebotomy called to draw as to not delay due to xray verification of PICC. ED PROVIDER NOTE [facility] NAME: Claudine Joseph AGE: 28 y.o. : 1990 VISIT DATE: 10/07/2018 CSN: [id number] PCP: Colette Goode MD Chief Complaint Patient [...] REVISION ; Surgeon: Kb Ramsey MD; [place] [facility] [place]; Service: PEG TUBE INSERTION REVISION PAIN PUMP N/A 07/27/2016 Procedure: BACLOFEN PUMP REPLACEMENT ; Surgeon: Kb Ramsey MD; Location[place] [facility]; Service: SALIVARY GLAND SURGERY Family [...] Yellow Clarity, Urine Cloudy (A) Clear Specific Bradshaw 1.018 1.005 - 1.025 pH, Urine 9.0 [...] old infarcts, essentially unchanged. KKV/mll Workstation ID: [id number] Procedures MDM Patient is a 28-year-old female [...] 1. Colette Goode MD. Specialty: Family Medicine [address] [place] [id number] Contact information for after-discharge care Follow-up [...] and pt's vitals are stable. Contacted Dr. Mg, and states she will be down to [...] Call light within reach. ED PROVIDER NOTE [facility] NAME: Claudine Joseph AGE: 28 y.o. : 1990 VISIT DATE: 11/28/2018 CSN: [id number] PCP: Colette Goode MD Chief Complaint Patient [...] REVISION ; Surgeon: Kb Ramsey MD; [place] [facility] [place]; Service: PEG TUBE INSERTION REVISION PAIN PUMP N/A 07/27/2016 Procedure: BACLOFEN PUMP REPLACEMENT ; Surgeon: Kb Ramsey MD; Location: [facility] [place]; Service: SALIVARY GLAND SURGERY Family [...] 2000 (!) 138 (!) 25 98 % 11/28/18 1910 106/64 (!) 100.9 F (38.3 C) Oral [...] Yellow Clarity, Urine Cloudy (A) Clear Specific Bradshaw 1.020 1.005 - 1.025 pH, Urine 9.0 [...] Nov 28 2357 Mon Nov 28, 2018 6838 On exam, patient remained stable. Updated her [...] RIGHT ISCHIUM; Surgeon: Rad Luque MD; Location: [facility] OR; Service: Orthopedic LAMINECTOMY DECOMP THORACIC MULTI LEVEL N/A 07/27/2016 Procedure: T1-2 THORACIC FUSION REVISION ; Surgeon: Kb Ramsey MD; [place]: [facility]; Service: PEG TUBE INSERTION REVISION PAIN PUMP N/A 07/27/2016 Procedure: BACLOFEN PUMP REPLACEMENT ; Surgeon: Kb Ramsey MD; Location: [facility]; Service: SALIVARY GLAND SURGERY Social [...] file Gets together: Not on file Attends zoroastrian service: Not on file Active member of [...] from 11/28/2018. 3. No acute interval change. [employer] Workstation ID: [id number] Critical Care Time: I [...] encounter Primary RN informed ready intermediate bed. [facility] PCP - Colette Goode MD Chief Complaint Patient presents with Dysuria HPI MEDICAL DECISION MAKING 29-year-old female presents to [facility] emergency department chief complaint of fever. [...] this time will be admitted to the [facility] service. Should be admitted to intermediate level [...] following components: Clarity, Urine Cloudy (*) Specific Bradshaw 1.032 (*) Protein, Urine 100 (*) Leukocyte [...] Procedure Abnormality Status --------- ------ CBC Auto Differential[[id number]] Abnormal Final result Please view results for [...] Medical History: Diagnosis Date Acute respiratory failure ([facility]) Due to MRSA pneumonia 04/2016; Allergic rhinitis Anoxic brain damage ([facility]) Aspiration, chronic pulmonary Bowel and bladder incontinence Cerebral palsy ([facility]) Chronic osteomyelitis of pelvic region, right ([facility]) 2018 required right ischial debridement, followed by Dr. Noland of plastics Chronic respiratory failure with hypoxia ([facility]) 3 L NC, followed by Dr. Stephy Cisse and Dr. 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 baclofen pump since 1999, followed at [facility] neuro baclofen pump clinic Nonverbal Answers yes with very long blinks per adoptive parent PEG (percutaneous endoscopic gastrostomy) status ([facility]) Presence of intrathecal baclofen pump 1999 [...] RIGHT ISCHIUM; Surgeon: Rad Luque MD; Location: [facility] Main OR; Service: Orthopedic LAMINECTOMY DECOMP THORACIC MULTI LEVEL N/A 07/27/2016 Procedure: T1-2 THORACIC FUSION REVISION ; Surgeon: Kb Ramsey MD; [place] [facility] [place]; Service: PEG TUBE INSERTION REVISION PAIN PUMP N/A 07/27/2016 Procedure: BACLOFEN PUMP REPLACEMENT ; Surgeon: Kb Ramsey MD; Location: [facility] [place]; Service: SALIVARY GLAND SURGERY Family [...] file Gets together: Not on file Attends zoroastrian service: Not on file Active member of [...] portions of this note were created using Streetcar voice recognition software.* José Meléndez MD 10/21/19 1559 SEPSIS ALERT called per Anita MUNOZ ER physician notified of Pt temp, possible Sepsis Pt arrives w/ disabilities caregiver, reports fevers, ABD pain, dark urine, Pt [...] pneumonia 04/2016; Allergic rhinitis Anoxic brain damage ([facility]) Aspiration, chronic pulmonary Bowel and bladder incontinence Cerebral palsy ([facility]) Chronic osteomyelitis of pelvic region, right ([facility]) 2018 required right ischial debridement, followed by Dr. Noland of plastics Chronic respiratory failure with hypoxia ([facility]) 3 L NC, followed by Dr. Stephy Cisse and Dr. 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 baclofen pump since 1999, followed at [facility] neuro baclofen pump clinic Nonverbal Answers yes with very long blinks per adoptive parent PEG (percutaneous endoscopic gastrostomy) status ([facility]) Presence of intrathecal baclofen pump 1999 [...] RIGHT ISCHIUM; Surgeon: Rad Luque MD; Location: [facility] Main OR; Service: Orthopedic LAMINECTOMY DECOMP THORACIC MULTI LEVEL N/A 07/27/2016 Procedure: T1-2 THORACIC FUSION REVISION ; Surgeon: Kb Ramsey MD; [place]: [facility] [place]; Service: PEG TUBE INSERTION REVISION PAIN PUMP N/A 07/27/2016 Procedure: BACLOFEN PUMP REPLACEMENT ; Surgeon: Kb Ramsey MD; Location: [facility] [place]; Service: SALIVARY GLAND SURGERY Family [...] file Gets together: Not on file Attends zoroastrian service: Not on file Active member of [...] Joseph Home Medication Instructions Prior to Surgery SADIE:[id number] Printed on:01/22/20 0108 Medication Information Take last dose on Take [...] study but no definite acute cardiopulmonary process. SAY/c Workstation ID: [id number] Medications Ordered/Given During ED Visit Medications - No data to display Procedures Note: To expedite correspondence this note was generated by Streetcar voice recognition software. Some grammatical or spelling errors may occur using the system. Elodia Garces, ACTIVITIES ATTENDANT 01/22/20 5673 Pt's mother states pt is to get daily antibiotics in her PICC. States PICC was placed 4 days ago at [facility]. Pt's mother states she last accessed PICC [...] this encounter Report called to RN for 3741. Primary rn notified of ready 6 yellow intermediate bed ED PROVIDER NOTE [facility] EMERGENCY DEPARTMENT NAME: Claudine Joseph AGE: 29 y.o. : 1990 VISIT DATE: 02/12/2020 CSN: [id number] PCP: Colette Goode MD Chief Complaint Patient [...] Medical History: Diagnosis Date Acute respiratory failure ([facility]) Due to MRSA pneumonia 04/2016; Allergic rhinitis Anoxic brain damage ([facility]) Aspiration, chronic pulmonary Bowel and bladder incontinence Cerebral palsy ([facility]) Chronic osteomyelitis of pelvic region, right ([facility]) 2018 required right ischial debridement, followed by Dr. Noland of plastics Chronic respiratory failure with hypoxia ([facility]) 3 L NC, followed by Dr. Stephy Cisse and Dr. 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 baclofen pump since 1999, followed at [facility] neuro baclofen pump clinic Nonverbal Answers yes with very long blinks per adoptive parent PEG (percutaneous endoscopic gastrostomy) status ([facility]) Presence of intrathecal baclofen pump 1999 [...] RIGHT ISCHIUM; Surgeon: Rad Luque MD; Location: [facility] Main OR; Service: Orthopedic LAMINECTOMY DECOMP THORACIC MULTI LEVEL N/A 07/27/2016 Procedure: T1-2 THORACIC FUSION REVISION ; Surgeon: Kb Ramsey MD; [place] [facility] [place]; Service: PEG TUBE INSERTION REVISION PAIN PUMP N/A 07/27/2016 Procedure: BACLOFEN PUMP REPLACEMENT ; Surgeon: Kb Ramsey MD; Location: [facility] [place]; Service: SALIVARY GLAND SURGERY Family [...] file Gets together: Not on file Attends zoroastrian service: Not on file Active member of [...] Yellow Clarity, Urine Cloudy (A) Clear Specific Bradshaw 1.030 (H) 1.005 - 1.025 pH, Urine [...] Patient stable at this time. 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 Pt's mother denies any contact with anyone with suspected or confirmed COVID-19. documented in this encounter Pt and family had Covid over Thanksgiving week Pt arrives by wheelchair, wearing mask, has wound infection and needs PICC line placed documented in this encounter ED PROVIDER NOTE [facility] EMERGENCY DEPARTMENT NAME: Claudine Joseph AGE: 30 y.o. : 1990 VISIT DATE: 09/23/2020 CSN: [id number] PCP: Colette Goode MD Chief Complaint Patient presents with Shortness of Breath HPI Claudine Joseph is a 30 y.o. female that has a past medical history of Acute respiratory failure ([facility]), Allergic rhinitis, Anoxic brain damage (HCC), Aspiration, chronic pulmonary, Bowel and bladder incontinence, Cerebral palsy (), Chronic osteomyelitis of pelvic region, right ([facility]) (2018), Chronic respiratory failure with hypoxia ([facility]), Constipation, Epilepsy (), GERD (gastroesophageal reflux disease), MRSA (methicillin resistant Staphylococcus aureus) (04/2016), Muscle spasticity, Nonverbal, PEG (percutaneous endoscopic gastrostomy) status (), Presence of intrathecal baclofen pump (1999), Restrictive lung disease due to kyphoscoliosis, Urine retention, and Wheelchair bound.. This is a 30-year-old female presenting to the emergency department shortness of breath. This chief complaint is not actually accurate. The patient came in here today, coming by her mother who is her caregiver. Apparently mother had brought her to [place] so she did go to a scheduled appointment. However, mother ended up having a syncopal event and requiring admission to the hospital. Because of this, the social science teacher got involved to see if there is another way to help this patient out, as the patient is quadriplegic and nonverbal. Apparently there is no one else to care for this patient. So the social science teacher suggested that the patient end up getting [...] pulmonary Bowel and bladder incontinence Cerebral palsy ([facility]) Chronic osteomyelitis of pelvic region, right ([facility]) 2018 required right ischial debridement, followed by Dr. Noland of plastics Chronic respiratory failure with hypoxia ([facility]) 3 L NC, followed by Dr. Stephy Cisse and Dr. 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 baclofen pump since 1999, followed at [facility] neuro baclofen pump clinic Nonverbal Answers yes with very long blinks per adoptive parent PEG (percutaneous endoscopic gastrostomy) status ([facility]) Presence of intrathecal baclofen pump 1999 [...] RIGHT ISCHIUM; Surgeon: Rad Luque MD; Location: [facility] Main OR; Service: Orthopedic LAMINECTOMY DECOMP THORACIC MULTI LEVEL N/A 07/27/2016 Procedure: T1-2 THORACIC FUSION REVISION ; Surgeon: Kb Ramsey MD; [place] [facility]; Service: PEG TUBE INSERTION REVISION PAIN PUMP N/A 07/27/2016 Procedure: BACLOFEN PUMP REPLACEMENT ; Surgeon: Kb Ramsey MD; Location: [facility]; Service: SALIVARY GLAND SURGERY Family [...] file Gets together: Not on file Attends zoroastrian service: Not on file Active member of [...] her in for an appointment today at [facility]. Patient mother had a syncopal event and required admission. Patient is taking care of primarily by her mother, her primary caregiver. Unfortunately, the patient's mother also tested positive for COVID-19. The patient is apparently requiring medical respite care. Because of this, the social science teacher had recommended that she be, patient instructed [...] [place]. ED Course as of Sep 23 1540 Mon Sep 23, 2020 1508 SARS-CoV-2(!): Detected [...] speak with Dr. Moncada. ED PROVIDER NOTE [facility] EMERGENCY DEPARTMENT NAME: Claudine Joseph AGE: 29 y.o. : 1990 VISIT DATE: 05/04/2019 CSN: [id number] PCP: Colette Goode MD Chief Complaint Patient presents with Wound Check 29-year-old female presents emergency room for evaluation. Patient has cerebral palsy. Also has a history of anoxic brain damage. Patient had developed a wound on the right buttock region. She has been followed with the wound care clinic out at [facility]. She is scheduled to see a plastic surgeon next week at [place]. They were concerned about this becoming more [...] RIGHT ISCHIUM; Surgeon: Rad Luque MD; Location: [facility] Main OR; Service: Orthopedic LAMINECTOMY DECOMP THORACIC MULTI LEVEL N/A 07/27/2016 Procedure: T1-2 THORACIC FUSION REVISION ; Surgeon: Kb Ramsey MD; [place]: [facility]; Service: PEG TUBE INSERTION REVISION PAIN PUMP N/A 07/27/2016 Procedure: BACLOFEN PUMP REPLACEMENT ; Surgeon: Kb Ramsey MD; Location: [facility]; Service: SALIVARY GLAND SURGERY Family [...] file Gets together: Not on file Attends zoroastrian service: Not on file Active member of [...] nursing note reviewed. Exam conducted with a air carrier operations inspector present. Constitutional: General: She is not in [...] Medicine Why: call the wound clinic at [place] who follows with you as well [address] [place] [id number] Contact information for after-discharge care Follow-up information has not been specified. Kj Moncada DO 05/04/19 193 Pt c/o wound in right gluteal fold, tunneling wound previously packed. Mother reports a culture was performed (positive for pseudamonas) . Pt has been to wound clinic in [facility] and was going to have IV antibiotics given there. Mom reports pt has been lethargic for the last 24 hours, pt has had a high heart rate And lower on oxygen saturation. Mom states [facility] was unable to place IV. Patient reportedly [...] Medical History: Diagnosis Date Acute respiratory failure ([facility]) Due to MRSA pneumonia 04/2016; Allergic rhinitis Anoxic brain damage ([facility]) Aspiration, chronic pulmonary Bowel and bladder incontinence Cerebral palsy ([facility]) Chronic osteomyelitis of pelvic region, right ([facility]) 2019 required right ischial debridement, followed by Dr. Noland of plastics Chronic respiratory failure with hypoxia ([facility]) 3 L NC, followed by Dr. Stephy Cisse and Dr. 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 baclofen pump since 1999, followed at [facility] neuro baclofen pump clinic Nonverbal Answers yes with very long blinks per adoptive parent PEG (percutaneous endoscopic gastrostomy) status ([facility]) Presence of intrathecal baclofen pump 1999 [...] RIGHT ISCHIUM; Surgeon: Rad Luque MD; Location: [facility] Main OR; Service: Orthopedic LAMINECTOMY DECOMP THORACIC MULTI LEVEL N/A 07/27/2016 Procedure: T1-2 THORACIC FUSION REVISION ; Surgeon: Kb Ramsey MD; Location: [facility]; Service: PEG TUBE INSERTION REVISION PAIN PUMP N/A 07/27/2016 Procedure: BACLOFEN PUMP REPLACEMENT ; Surgeon: Kb Ramsey MD; [place]: [facility]; Service: SALIVARY GLAND SURGERY Family [...] file Gets together: Not on file Attends zoroastrian service: Not on file Active member of [...] Joseph Home Medication Instructions Prior to Surgery SADIE:[id number] Printed on:03/21/20 2143 Medication Information Take last dose on Take [...] Procedure Abnormality Status --------- ------ CBC Auto Differential[[id number]] Abnormal Final result Please view results for [...] Procedure Abnormality Status --------- ------ CBC Auto Differential[[id number]] Abnormal Final result Please view results for [...] expedite correspondence this note was generated by Dragon voice recognition software. Some grammatical or spelling errors may occur using the system. All imaging has been read by a Radiologist. Emilio Maldonado CNP 03/21/20 4484 Patient arrives with O2 in place, Sage [...] documented in this encounter PICC team at [facility] EMERGENCY DEPARTMENT EMERGENCY MEDICINE NOTE PCP: Colette Goode MD Encounter Date: 11/27/20 Chief Complaint: Chief Complaint Patient presents with Wound Infection History of Presenting Illness: Claudine Joseph is a 30 y.o. female with a past medical history that includes has a past medical history of Acute respiratory failure ([facility]), Allergic rhinitis, Anoxic brain damage (), Aspiration, chronic pulmonary, Bowel and bladder incontinence, Cerebral palsy (), Chronic osteomyelitis of pelvic region, right ([facility]) (2018), Chronic respiratory failure with hypoxia (), Constipation, Epilepsy (), GERD (gastroesophageal reflux disease), MRSA (methicillin resistant Staphylococcus aureus) (04/2016), Muscle spasticity, Nonverbal, PEG (percutaneous endoscopic gastrostomy) status (), Presence of intrathecal baclofen pump (1999), Restrictive [...] has been recently prescribed antibiotics by her sports medicine specialist. PICC line. They present the paper [...] and I told mom to have her sports medicine specialist follow-up on these results. I discussed [...] 1. Colette Goode MD. Specialty: Family Medicine [address] [place] [id number] Contact information for after-discharge care Follow-up information has not been specified. . . (Streetcar Software was used to transcribe this note) [...] Procedure Abnormality Status --------- ------ CBC Auto Differential[[id number]] Abnormal Final result Please view results for [...] pneumonia 04/2016; Allergic rhinitis Anoxic brain damage ([facility]) Aspiration, chronic pulmonary Bowel and bladder incontinence Cerebral palsy ([facility]) Chronic osteomyelitis of pelvic region, right ([facility]) 2018 required right ischial debridement, followed by Dr. Noland of plastics Chronic respiratory failure with hypoxia ([facility]) 3 L NC, followed by Dr. Stephy Cisse and Dr. 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 baclofen pump since 1999, followed at [facility] neuro baclofen pump clinic Nonverbal Answers yes with very long blinks per adoptive parent PEG (percutaneous endoscopic gastrostomy) status ([facility]) Presence of intrathecal baclofen pump 1999 [...] RIGHT ISCHIUM; Surgeon: Rad Luque MD; Location: [facility] Main OR; Service: Orthopedic LAMINECTOMY DECOMP THORACIC MULTI LEVEL N/A 07/27/2016 Procedure: T1-2 THORACIC FUSION REVISION ; Surgeon: Kb Ramsey MD; [place]: [facility]; Service: PEG TUBE INSERTION REVISION PAIN PUMP N/A 07/27/2016 Procedure: BACLOFEN PUMP REPLACEMENT ; Surgeon: Kb Ramsey MD; Location: [facility]; Service: SALIVARY GLAND SURGERY Past [...] file Gets together: Not on file Attends zoroastrian service: Not on file Active member of [...] 2 (two) times a day ., Starting 10/02/2020, Normal cholecalciferol, vitamin D3, (VITAMIN D3) 2,000 [...] daily as needed for rhinitis ., Starting [facility] 01/11/2020, Normal ipratropium (ATROVENT) 0.02 % [...] of disaster per the Governor of the [facility] for disease control. Patient was wearing surgical mask during the entirety of the patient encounter. I was wearing appropriate PPE which included at minimum, surgical mask and eye protection during the evaluation of patient at bedside. PROCEDURES (if any, during ED visit): Procedures Rene Dunaway MD 11/27/201923 Spoke with Leo with the PICC team. He will come down to assess pt for PICC placement. Per mother pt is seeing a plastic surgeon in [facility] who will do procedure for gluteal fold wound. Mother sts pt was found to have an infection and needs to be cleared up prior to procedure. Mother has order for midline placedment and first dose of ATB. Mother sts she can do everything else at home as she is the primary caregiver. Mother sts she does not take pt to [facility] due to pt being traumatized mother chose to bring pt to [facility]. This RN called PICC team and left message for them to call and check availability. Awaiting return call. Dr Dunaway notified and is aware. Pt wheeled to triage with mask on, stated has a wound on R gluteal fold, infected, needs antibiotics and a midline. documented in this encounter Richar Brandt MD - 11/29/2018 12:01 AM Shannan Sosa MD - 09/20/2019 6:49 AM eBronica Barry DO - 10/21/2019 7:57 PM Mikala [...] sacral ulcer, GERD hypernatremia who presented to [facility] 11/28/2018 with complaints of fever, decreased oxygen [...] and bed, follows with Dr. Murphy and RETAIL SERVICE REPRESENTATIVE, requires straight cath intermittently several times a week and is incontinent -s/p multiple baclofen pumps last in 2016, recently filled for intrathecal administration -continue home medications and bowel regimen -tube feeds, consult nut culler -f/u neuro 03/17/19 Epilepsy -per history, with [...] weeks ago, but removed around 1 week mining captain -consult wound care Chronic hypernatremia -elevated [...] Richar Brandt MD 12:01 AM 11/29/18 Pager: [phone] Chief Complaint Fever, fussy History of Present Illness Claudine Joseph is a 28 y.o. female with a past medical history significant for anoxic brain injury, cerebral palsy s/p baclofen pump, seizure, restrictive lung disease with chronic respiratory failure on 4L, Aspiration, PEG tube, incontinence, chronic sacral ulcer, GERD who presented to [facility] 11/28/2018 with complaints of fever, decreased oxygen saturation found to have sepsis. Mom who is waste hand caregiver noticed patient was fussy last two days. She had a cough 4/1 AM as well as elevated HR and [...] REVISION ; Surgeon: Kb Ramsey MD; Location: [facility]; Service: PEG TUBE INSERTION REVISION PAIN PUMP N/A 07/27/2016 Procedure: BACLOFEN PUMP REPLACEMENT ; Surgeon: Kb Ramsey MD; Location: [facility]; Service: SALIVARY GLAND SURGERY Family [...] Joseph Home Medication Instructions Prior to Surgery SADIE:[id number] Printed on:11/29/18 0001 Medication Information Take last [...] nausea. in this encounter Shannan Viera MD [facility] Hospitalists History and Physical Patient Name:Claudine Joseph [...] to wheelchair at baseline follows with Dr Murhpy for medically refractroy, severe spasticity. Has Baclofen [...] of oxygen at home and also follow rectifier operator as outpatient. In ED her vitals Showed [...] RIGHT ISCHIUM; Surgeon: Rad Luque MD; Location: [facility] Main OR; Service: Orthopedic LAMINECTOMY DECOMP THORACIC MULTI LEVEL N/A 07/27/2016 Procedure: T1-2 THORACIC FUSION REVISION ; Surgeon: Kb Ramsey MD; Location: [facility]; Service: PEG TUBE INSERTION REVISION PAIN PUMP N/A 07/27/2016 Procedure: BACLOFEN PUMP REPLACEMENT ; Surgeon: Kb Ramsey MD; Location: [facility]; Service: SALIVARY GLAND SURGERY Family [...] file Gets together: Not on file Attends zoroastrian service: Not on file Active member of [...] documented in this encounter Beronica Torres, DO [facility] Hospitalists History and Physical Patient Name:Claudine Joseph [...] pneumonia 04/2016; Allergic rhinitis Anoxic brain damage ([facility]) Aspiration, chronic pulmonary Bowel and bladder incontinence Cerebral palsy ([facility]) Chronic osteomyelitis of pelvic region, right ([facility]) 2018 required right ischial debridement, followed by Dr. Noland of plastics Chronic respiratory failure with hypoxia ([facility]) 3 L NC, followed by Dr. Stephy Cisse and Dr. 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 baclofen pump since 1999, followed at [facility] neuro baclofen pump clinic Nonverbal Answers yes with very long blinks per adoptive parent PEG (percutaneous endoscopic gastrostomy) status ([facility]) Presence of intrathecal baclofen pump 1999 [...] RIGHT ISCHIUM; Surgeon: Rad Luque MD; Location: [facility] Main OR; Service: Orthopedic LAMINECTOMY DECOMP THORACIC MULTI LEVEL N/A 07/27/2016 Procedure: T1-2 THORACIC FUSION REVISION ; Surgeon: Kb Ramsey MD; [place] [facility] [place]; Service: PEG TUBE INSERTION REVISION PAIN PUMP N/A 07/27/2016 Procedure: BACLOFEN PUMP REPLACEMENT ; Surgeon: Kb Ramsey MD; [place] [facility] [place]; Service: SALIVARY GLAND SURGERY Family [...] file Gets together: Not on file Attends zoroastrian service: Not on file Active member of [...] Family Time Spent: documented in this encounter AppT[employer] History and Physical Note 02/12/20 Claudine Joseph 1990 [id number] Assessment/Plan: Claudine Joseph is a 29 y.o. female with a history of spastic cerebral palsy, quadriplegia, chronic respiratory failure on home O2, seizures, decubitus ulcers with wound vac in place, chronic sage and feeding tube who presented to [facility] 02/12/2020 with cough and fever. Found to [...] Estimated discharge date: TBD Mother Peg # [phone] Chief Complaint: Cough, fever and dyspnea History of Present Illness: Claudine Joseph is a 29 y.o. female with a history of spastic cerebral palsy, quadriplegia, chronic respiratory failure on home O2, seizures, decubitus ulcers with wound vac in place, chronic sage and feeding tube who presented to [facility] 02/12/2020 with cough and fever. Found to [...] Medical History: Diagnosis Date Acute respiratory failure ([facility]) Due to MRSA pneumonia 04/2016; Allergic rhinitis Anoxic brain damage ([facility]) Aspiration, chronic pulmonary Bowel and bladder incontinence Cerebral palsy ([facility]) Chronic osteomyelitis of pelvic region, right ([facility]) 2019 required right ischial debridement, followed by Dr. Noland of plastics Chronic respiratory failure with hypoxia ([facility]) 3 L NC, followed by Dr. Stephy Cisse and Dr. 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 baclofen pump since 1999, followed at [facility] neuro baclofen pump clinic Nonverbal Answers yes with very long blinks per adoptive parent PEG (percutaneous endoscopic gastrostomy) status ([facility]) Presence of intrathecal baclofen pump 1999 [...] RIGHT ISCHIUM; Surgeon: Rad Luque MD; Location: [facility] Main OR; Service: Orthopedic LAMINECTOMY DECOMP THORACIC MULTI LEVEL N/A 07/27/2016 Procedure: T1-2 THORACIC FUSION REVISION ; Surgeon: Kb Ramsey MD; [place] [facility] [place]; Service: PEG TUBE INSERTION REVISION PAIN PUMP N/A 07/27/2016 Procedure: BACLOFEN PUMP REPLACEMENT ; Surgeon: Kb Ramsey MD; Location: [facility] [place] [facility] [place]; Service: SALIVARY GLAND SURGERY Social [...] file Gets together: Not on file Attends zoroastrian service: Not on file Active member of [...] and Physical Note 08/13/20 Claudine Joseph 1990 [id number] Assessment/Plan: Claudine Joseph is a 30 y.o. female with a history of spastic cerebral palsy, quadriplegia, chronic respiratory failure, seizures, decubitus ulcers with wound vac, chronic sage and PEG tube and recent admission 03/21/20 for sepsis due to UTI who presented to [facility] 08/13/2020 with for wound infection, reportedly needs a PICC line. On admission, pt without leukocytosis or lactic acidosis. BP 82/61 in ED, improved with IVF. 1. Chronic Sacral Pressure Wound: pt with known pressure injuries previously with wound vac. Wound cx as outpatient growing pseudomonas and enterobacter (per mother, no official results). Follows with Dr. Marielle Duque out of [facility] for wound care, next appt 08/16/20. Pt already has home meropenem infusion set up per Dr. Duque and presents for PICC line placement (hx of bad experience at [facility]). Wound not overly infectious appearing on admit, [...] dysphagia: Peg tube in place. TFs per nut culler. 7. Chronic urinary retention: with chronic Sage. 8. DVT Prophylaxis: frequent turns. Current living situation: home Expected Disposition: home Estimated discharge date: TBD Chief Complaint: Need PICC History of Present Illness: Pt is new to me today. Records reviewed including labs, vital signs, imaging, and ED notes Pt presented to [facility] with mother, reports she needs a PICC [...] of plastics Chronic respiratory failure with hypoxia ([facility]) 3 L NC, followed by Dr. Stephy Cisse and Dr. 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 baclofen pump since 1999, followed at [facility] neuro baclofen pump clinic Nonverbal Answers yes with very long blinks per adoptive parent PEG (percutaneous endoscopic gastrostomy) status ([facility]) Presence of intrathecal baclofen pump 1999 [...] RIGHT ISCHIUM; Surgeon: Rad Luque MD; Location: [facility] Main OR; Service: Orthopedic LAMINECTOMY DECOMP THORACIC MULTI LEVEL N/A 07/27/2016 Procedure: T1-2 THORACIC FUSION REVISION ; Surgeon: Kb Ramsey MD; [place] [facility] [place] [facility] [place]; Service: PEG TUBE INSERTION REVISION PAIN PUMP N/A 07/27/2016 Procedure: BACLOFEN PUMP REPLACEMENT ; Surgeon: Kb Ramsey MD; [place]: [facility] [place] [facility] [place]; Service: SALIVARY GLAND SURGERY Social [...] file Gets together: Not on file Attends zoroastrian service: Not on file Active member of [...] reviewed, including documentation from previous hospitalizations and franchise field consultant recommendations as summarized above. Pulse ox reviewed. Patient is new to me Patient with sacral wound vitals notable for elevated HR hypotension WBC normal Unable to verify outpt antibiotics as discussed in quick note Patient discharged AMA with her caregiver with PIV in place AMA Will need close follow up on blood cultures pending here and wound plan Elodia Mendoza MD [facility] [phone] (office)documented in this encounter [employer] History and Physical Note 09/23/20 Claudine Joseph 1990 [id number] Assessment/Plan: Claudine Joseph is a 30 y.o. female with a history of spastic cerebral palsy, quadriplegia, chronic respiratory failure, seizures, decubitus ulcers with wound vac, chronic sage and PEG tube who presented to [facility] 09/23/2020 with need for placement, found to be COVID-19 positive on admit. 1. COVID-19 Infection: tested positive 09/23/20. Appears asymptomatic but difficult to evaluate due to nonverbal status. No increased O2 requirements. Supportive care, special isolation, monitor closely for decompensation. 2. Need for Placement: patient presented to [facility] for outpatient appointment but mother had syncopal [...] Dysphagia: with PEG tube in place. Consulted Continuous Still Operator for TF recs. 7. Chronic Urinary Retention: [...] sage and PEG tube who presented to [facility] 09/23/2020 with need for placement, found to be COVID-19 positive on admit. Patient has a history of cerebral palsy complicated by quadriplegia. She is nonverbal at baseline. History obtained primarily through chart review. Patient presented earlier today with her mother for an outpatient appointment, however while at [place] the patient's mother had a syncopal episode [...] in high 90s. Patient is new to [place]. Medical record reviewed including lab, vitals, diagnostics, and franchise field consultant recommendations. Discussed with [facility] attending physician Dr. Castañeda with plan as above and final attestation to follow. ROS: Unable to perform a complete review of systems due to patient is nonverbal at baseline Past Medical, Surgical, Social, Family History: Past Medical History: Diagnosis Date Acute respiratory failure (HCC) Due to MRSA pneumonia 04/2016; Allergic rhinitis Anoxic brain damage ([facility]) Aspiration, chronic pulmonary Bowel and bladder incontinence Cerebral palsy ([facility]) Chronic osteomyelitis of pelvic region, right ([facility]) 2018 required right ischial debridement, followed by Dr. Noland of plastics Chronic respiratory failure with hypoxia ([facility]) 3 L NC, followed by Dr. Stephy Cisse and Dr. 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 baclofen pump since 1999, followed at [facility] neuro baclofen pump clinic Nonverbal Answers yes with very long blinks per adoptive parent PEG (percutaneous endoscopic gastrostomy) status ([facility]) Presence of intrathecal baclofen pump 1999 [...] RIGHT ISCHIUM; Surgeon: Rad Luque MD; Location: [facility] Main OR; Service: Orthopedic LAMINECTOMY DECOMP THORACIC MULTI LEVEL N/A 07/27/2016 Procedure: T1-2 THORACIC FUSION REVISION ; Surgeon: Kb Ramsey MD; [place] [facility] [place] [facility] [place]; Service: PEG TUBE INSERTION REVISION PAIN PUMP N/A 07/27/2016 Procedure: BACLOFEN PUMP REPLACEMENT ; Surgeon: Kb Ramsey MD; [place]: [facility] [place] [facility] [place]; Service: SALIVARY GLAND SURGERY Social [...] file Gets together: Not on file Attends zoroastrian service: Not on file Active member of [...] 97 CALCIUM mg/dL 9.8 Associated attestation - Maddy, Fred Rolon MD - 09/23/2020 10:58 PM EST I [...] chronic Sage and PEG who presented to [facility], found to be COVID-19 positive. Reportedly, patient's [...] and Physical Note 03/21/20 Claudine Joseph 1990 [id number] Assessment/Plan: Claudine Joseph is a 29 y.o. female with a history of spastic cerebral palsy, quadriplegia, chronic respiratory failure, seizures, decubitus ulcers with wound vac, chronic sage and Peg Tube with recent admission 02/12/20-02/14/20 for sepsis due to aspiration pneumonia who presented to [facility] 03/21/2020 with concern for sepsis by mother [...] due to aspiration pneumonia who presented to [facility] 03/21/2020 with concern for sepsis by mother. [...] Cisse and Dr. Amalia Terry Constipation Epilepsy (HCC) followed at [facility] neurology clinic GERD (gastroesophageal reflux disease) occasional vomiting with gagging MRSA (methicillin resistant Staphylococcus aureus) 04/2016 Bilateral lungs Muscle spasticity medically refractory and has baclofen pump since 1999, followed at [facility] neuro baclofen pump clinic Nonverbal Answers yes with very long blinks per adoptive parent PEG (percutaneous endoscopic gastrostomy) status ([facility]) Presence of intrathecal baclofen pump 1999 [...] RIGHT ISCHIUM; Surgeon: Rad Luque MD; Location: [facility] Main OR; Service: Orthopedic LAMINECTOMY DECOMP THORACIC MULTI LEVEL N/A 07/27/2016 Procedure: T1-2 THORACIC FUSION REVISION ; Surgeon: Kb aRmsey MD; [place]: [facility] [place] [facility] [place]; Service: PEG TUBE INSERTION REVISION PAIN PUMP N/A 07/27/2016 Procedure: BACLOFEN PUMP REPLACEMENT ; Surgeon: Kb Ramsey MD; Location: [facility] [place] [facility] [place]; Service: SALIVARY GLAND SURGERY Social [...] file Gets together: Not on file Attends zoroastrian service: Not on file Active member of [...] 85 documented in this encounter Parul Cameron, ACTIVITIES ATTENDANT - 12/01/2018 2:40 PM Danitza Modi, DO - 12/01/2018 1:31 PM Aurora Ordoñez, OT - 11/30/2018 2:53 PM EDT Consult Notes (unrecognized section and content) Associated Order(s): IP CONSULT TO ORTHOPEDIC SURGERY CONSULT NOTE Patient Name: Claudine Joseph Admit Date: [id number] MR #: [id number] : 1990 Physicians: Colette Goode MD (Family); [...] obtained from mother at bedside -NPO at [place] -Local wound care to sacral decub Chief Complaint/Reason for Visit: sacral decubitus ulcer History of Present Illness: Claudine Joseph is a 28 y.o. female with history of anoxic brain injury, cerebral palsy s/p baclofen pump, seizure, restrictive lung disease with chronic respiratory failure on 4L NC, aspiration, PEG tube, incontinence, chronic sacral ulcer (since march), GERD, hypernatremia who presented to [facility] from home on 11/28/2018 with complaints of [...] REVISION ; Surgeon: Kb Ramsey MD; [place]: [facility] [place] [facility] [place]; Service: PEG TUBE INSERTION REVISION PAIN PUMP N/A 07/27/2016 Procedure: BACLOFEN PUMP REPLACEMENT ; Surgeon: Kb Ramsey MD; Location: [facility] [place] [facility] [place]; Service: SALIVARY GLAND SURGERY Family [...] seen and examined independent of resident or RETAIL SERVICE REPRESENTATIVE/PA-C. I agree with the stated plan. Patient [...] by definition, and the risks of long term care pharmacist antibiotic therapy would outweigh the benefit as [...] patient's wound care physician: Dr. Marielle Duque- [facility] Therapeutics: Discontinue Vancomycin/Cefepime in an effort to increase culture yield, given clinical stability She has received a sufficient course of Cefepime for uncomplicated Klebsiella UTI Aggressive wound care/offloading is going to imperative going forward I will continue to follow. Please call with questions. Danitza Rowland, [facility] Referring MD: Fidencio Brar,* [...] has been following with wound care in [facility] and had a wound vac up [...] REVISION ; Surgeon: Kb Ramsey MD; [place]: [facility] [place] [facility] [place]; Service: PEG TUBE INSERTION REVISION PAIN PUMP N/A 07/27/2016 Procedure: BACLOFEN PUMP REPLACEMENT ; Surgeon: Kb Ramsey MD; [place]: [facility] [place] [facility] [place]; Service: SALIVARY GLAND SURGERY Social [...] Contrast Only Final Result Addendum 1 of ADDENDUM: Partially visualized skin defect is seen [...] floor based lift at home, well fit [id number] wheelchair. Order discontinued at this time. Associated Order(s): IP CONSULT TO GENERAL SURGERY Clinic Surgery Consultation Note Patient Name: Claudine Joseph MR #: [id number] : 1990 Chief Complaint/Reason for Visit: Chief [...] management. Will discuss with Dr. Godwin. Donnie SINGLETON MD, MS [phone] Pager If you cannot reach me, please page [phone] Assessment and Plan: 28 y.o. female with h/o seizures, cerebral palsy, GERD, chronic aspiration, previous MRSA pneumonia causing acute respiratory failure, Prior CCY, PEG tube placement, who presented to [facility] on 11/29 with fever and hypoxia, found [...] R Ischium - CT scan reviewed with [facility] rads after examining patient, less likely abscess. [...] to evaluate Ame Noland MD Surgery PGY-1 [phone] Please contact surgical consultant intern tension worker at [phone] 5PM-6AM and weekends History of Present Illness: Ms. Claudine Joseph is a 28 y.o. female with a h/o seizures, cerebral palsy, GERD, chronic aspiration, previous MRSA pneumonia causing acute respiratory failure, Prior CCY, PEG tube placement, who presented to [facility] on 11/29 with fever and hypoxia, found to have sepsis of unknown origin. General surgery consulted to evaluate sacral decubitus ulcer with abscess and osteomyelitis of the R ischium. property caretaker at bedside who provided history. Patient had [...] Restrictive lung disease due to kyphoscoliosis Seizures ([facility]) Daily occurrence-Neuro- adoptive mother can't remember name of urologist Past Surgical History: Procedure Laterality Date BACK SURGERY 1999 Marrufo rods placed BACLOFEN PUMP IMPLANTATION X 3- last 2009 CHOLECYSTECTOMY LAMINECTOMY DECOMP THORACIC MULTI LEVEL N/A 07/27/2016 Procedure: T1-2 THORACIC FUSION REVISION ; Surgeon: Kb Ramsey MD; [place]: [facility] [place] [facility] [place]; Service: PEG TUBE INSERTION REVISION PAIN PUMP N/A 07/27/2016 Procedure: BACLOFEN PUMP REPLACEMENT ; Surgeon: Kb Ramsey MD; Location: [facility] [place] [facility] [place]; Service: SALIVARY GLAND SURGERY Family [...] haziness of the lungs may be positional. PD/idio Workstation ID: [id number] Ct Chest Abdomen Pelvis [...] CODES: A41.9 Sepsis, due to unspecified organism ([facility]) E87.0 Hypernatremia COMPARISON: 11/21/2016. TECHNIQUE: CT examination [...] and sacral fusion is seen. Prior cholecystectomy. /[facility] Workstation ID: [id number] Associated attestation - Werner Lovett MD - 12/02/2018 6:02 PM EDT Discussed case with surgery chief resident and agree with plan Werner Lovett MD General Surgery, Trauma, and Surgical Critical Care [facility] c [phone] p [phone] Associated Order(s): IP CONSULT TO DIETITIAN 11/30/2018: [...] Estimated Energy Needs Total Energy Estimated Needs: 6141-9048 kcal Method for Estimating Needs: 25-30 kcal/kg [...] estimated needs. Difficulty Chewing/Swallowing: Yes - long term care pharmacist need for PEG Skin Integrity: U/S area [...] vancomycin 750 mg Intravenous Q12H Courtney Peter RD, Vocera: [phone] Tonya this encounter Associated Order(s): IP CONSULT TO [...] Anticipated Facility Type: Home care, Home infusion [facility] Disposition D/C Disposition: Home Health Care Services Related to Current Admission?: No Agency/Destination: Other([facility]) Home Care Needs : Home health care, Infusion Pharmacy, Oxygen Infusion Agency: [facility] HME: None Same As Recommended : yes Transportation Type: Auto PUNCHBOARD INSERTER consulted for discharge planning. PUNCHBOARD INSERTER into see pt, caregiver/guardian (Peg) at bedside. Peg stated she takes care of the pt at home. Pt has a hospital bed, shower bed that rolls, a track system on the ceiling to help move the pt, home oxygen (through [place] [facility]), suction, and nebulizer. Peg stated the pt receives RN services through [facility] . Pt uses [facility] for tube feeds. Peg stated she is able to provide transportation for pt home. PUNCHBOARD INSERTER will await medical progression and continue to [...] and IADLs. Track floor-based lift at home, [id number] wheelchair. Screened by physical therapy, no further needs indicated and nursing has been notified. Associated Order(s): IP CONSULT TO DIE WELDER Pulmonary and Critical Care Consult Note Impression [...] reviewed. Patient is FULL CODE. DVT prophylaxis: Ebenezerx Ramón Kumar MD PGY-1 Pager # [phone] Reason for Consultation: Severe Sepsis without shock [...] of plastics Chronic respiratory failure with hypoxia ([facility]) 3 L NC, followed by Dr. Stephy Cisse and Dr. Amalia Harrison Constipation Epilepsy (HCC) followed at [facility] neurology clinic GERD (gastroesophageal reflux disease) occasional vomiting with gagging MRSA (methicillin resistant Staphylococcus aureus) 04/2016 Bilateral lungs Muscle spasticity medically refractory and has baclofen pump since 1999, followed at [facility] neuro baclofen pump clinic Nonverbal Answers yes with very long blinks per adoptive parent PEG (percutaneous endoscopic gastrostomy) status ([facility]) Presence of intrathecal baclofen pump 1999 [...] RIGHT ISCHIUM; Surgeon: Rad Luque MD; Location: [facility] Main OR; Service: Orthopedic LAMINECTOMY DECOMP THORACIC MULTI LEVEL N/A 07/27/2016 Procedure: T1-2 THORACIC FUSION REVISION ; Surgeon: Kb Ramsey MD; [place]: [facility] [place] [facility] [place]; Service: PEG TUBE INSERTION REVISION PAIN PUMP N/A 07/27/2016 Procedure: BACLOFEN PUMP REPLACEMENT ; Surgeon: Kb Ramsey MD; Location: [facility] [place] [facility] [place]; Service: SALIVARY GLAND SURGERY Family [...] file Gets together: Not on file Attends zoroastrian service: Not on file Active member of [...] reviewed Recent Labs 09/20/19 0757 PHART 7.38 [id number] 54.0* PO2ART 79* [id number] 96.7 RESPRATE 0 TIDALVOL 0 Recent Labs [...] - confirmed with guardian 09/20/19. Lalo Wellington, Pulmonary & Critical Care [facility] Associated Order(s): IP CONSULT TO DIETITIAN See initial assessment. Discussed on rounds. TF to start Casi De La Cruz RD, [facility] [phone] documented in this encounter Associated Order(s): IP [...] of plastics Chronic respiratory failure with hypoxia ([facility]) 3 L NC, followed by Dr. Stephy Cisse and Dr. 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 baclofen pump since 1999, followed at [facility] neuro baclofen pump clinic Nonverbal Answers yes with very long blinks per adoptive parent PEG (percutaneous endoscopic gastrostomy) status ([facility]) Presence of intrathecal baclofen pump 1999 [...] Integrity: R ischial wound 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 PUNCHBOARD INSERTER familiar with pt from prior admission. Per caregiver/guardian, Peg, the pt lives at home and has a hospital bed, shower bed that rolls, a track system on the ceiling to help move the pt, home oxygen (through [place] [facility]), suction, and nebulizer. The pt receives daily RN services through [facility] (information added to AVS) and tube feeds through [facility] (information added to AVS). Pt will require updated ambulatory order and referral to [facility] upon discharge. If tube feeds remain the same, [facility] does not require new referral, only discharge paperwork. Peg to provide transport for pt. PUNCHBOARD INSERTER will await medical progression and will continue [...] Nutrition Care Initial Assessment Reason for Completion: Physician/ACTIVITIES ATTENDANT/PA Consult (TF initiate and manage) Nutrition Diagnosis: [...] sodium chloride 0.9 % 75 mL/hr (02/13/20 0216) Estimated Needs: Estimated Energy Needs Total Energy [...] a track floor-based lift at home and [id number] wheelchair. 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 Noland of plastics Chronic respiratory failure with hypoxia ([facility]) 3 L NC, followed by Dr. Stephy Cisse and Dr. 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 baclofen pump since 1999, followed at [facility] neuro baclofen pump clinic Nonverbal Answers yes with very long blinks per adoptive parent PEG (percutaneous endoscopic gastrostomy) status ([facility]) Presence of intrathecal baclofen pump 1999 [...] other medical provider, Physician or YUDY. Cynthia Tidwell RD (Kelly), LD Associated Order(s): ED CONSULT TO MEDICAL - GLASS ROLLING MACHINE OPERATOR DALJIT placed order for inpatient care management . Referrals have been sent and will need follow up to see if pt can be accepted. WAQAS Guerrier, [employer] Emergency Room Barrel Rifler Button Vocera: ED Barrel Rifler Button documented in this encounter Associated Order(s): IP [...] due to aspiration pneumonia who presented to [facility] with concern for sepsis by mother due [...] of plastics Chronic respiratory failure with hypoxia ([facility]) 3 L NC, followed by Dr. Stephy Cisse and Dr. 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 baclofen pump since 1999, followed at [facility] neuro baclofen pump clinic Nonverbal Answers yes with very long blinks per adoptive parent PEG (percutaneous endoscopic gastrostomy) status ([facility]) Presence of intrathecal baclofen pump 1999 [...] Care Teams (unrecognized sec tion and content) Account Adjuster Relationship Specialty Start Date End Date Colette Goode MD [id number] [place] [address] PCP - General Family Medicine 05/24/15 Account Adjuster Relationship Specialty Start Date End Date Colette Goode MD [address] [place] [address] 840[address] PCP - General Family Medicine 05/24/15 Account Adjuster Relationship Specialty Start Date End Date Colette Goode MD [address] [place] [address] 38407 PCP - General Family Medicine 05/24/15 Account Adjuster Relationship Specialty Start Date End Date Colette Goode MD [address] [place] [address] 95017 PCP - General Family Medicine 05/24/15 Account Adjuster Relationship Specialty Start Date End Date Coletet Goode MD [address] [place] [address] 07850 PCP - General Family Medicine 05/24/15 Account Adjuster Relationship Specialty Start Date End Date Colette Goode MD [address] [place] [address] 69195 PCP - General Family Medicine 05/24/15 Account Adjuster Relationship Specialty Start Date End Date Colette Goode MD [address] [place] [address] 78794 PCP - General Family Medicine 05/24/15 Account Adjuster Relationship Specialty Start Date End Date Colette Goode MD [address] [place] [address] 95062 PCP - General Family Medicine 05/24/15 Account Adjuster Relationship Specialty Start Date End Date Colette Goode MD [id number] [place] [address] 26471 PCP - General Family Medicine 05/24/15 Account Adjuster Relationship Specialty Start Date End Date Colette Goode MD [address] [place] [address] 16075 PCP - General Family Medicine 05/24/15 Account Adjuster Relationship Specialty Start Date End Date Colette Goode MD [address] [place] [address] 30188 PCP - General Family Medicine 05/24/15 Account Adjuster Relationship Specialty Start Date End Date Colette Goode MD [address] [place] [address] 83001 PCP - General Family Medicine 05/24/15 Account Adjuster Relationship Specialty Start Date End Date Colette Goode MD [address] [place] [address] 35704 PCP - General Family Medicine 05/24/15 Account Adjuster Relationship Specialty Start Date End Date Colette Goode MD [address] [place] [address] 18717 PCP - General Family Medicine 05/24/15 Account Adjuster Relationship Specialty Start Date End Date Colette Goode MD [address] [place] [address] 57819 PCP - General Family Medicine 05/24/15 Account Adjuster Relationship Specialty Start Date End Date Colette Goode MD [address] [place], [place] [address], [place] [address] PCP - General Family Medicine 05/24/15 Account Adjuster Relationship Specialty [place] [address] [place] [address] PCP - General Family Medicine 05/24/15 Account Adjuster Relationship Specialty Start Date End Date Colette Goode MD [id number] [place] [address] 70265 PCP - General Family Medicine 02/16/19 Account Adjuster Relationship Specialty Start Date End Date Colette Goode MD [id number] [place] [address] 83410 PCP - General Family Medicine 05/24/15 Account Adjuster Relationship Specialty Start Date End Date Colette Goode MD [id number] [place] [address] 06795 PCP - General Family Medicine 02/16/19 Account Adjuster Relationship Specialty Start Date End Date Marielle Duque MD PCP - General Internal Medicine 01/14/22 Account Adjuster Relationship Specialty Start Date End Date Marielle Duque MD [facility] [place] [address] PCP - General Internal Medicine 01/14/22 Account Adjuster Relationship Specialty Start Date End Date Marielle Duque MD [address] [address] PCP - General Internal Medicine 01/14/22 Account Adjuster Relationship Specialty Start Date End Date Marielle Duque MD [address] [address] PCP - General Internal Medicine 01/14/22 Account Adjuster Relationship Specialty Start Date End Date Marielle Duque MD [address] [place] [address] PCP - General Internal Medicine 01/14/22 Account Adjuster Relationship Specialty Start Date End Date Marielle Duque MD [address] [place] [address] PCP - General Internal Medicine 01/14/22 Account Adjuster Relationship Specialty Start Date End Date Marielle Duque MD [address] [place] [address] PCP - General Internal Medicine 01/14/22 Account Adjuster Relationship Specialty Start Date End Date Marielle Duque MD [address] [place] [address] PCP - General Internal Medicine 01/14/22 Account Adjuster Relationship Specialty [place] [address] [place] [address] PCP - General Family Medicine 05/24/15 01/13/22 Marielle Duque MD [address] [place] [address] PCP - General Internal Medicine 01/14/22 Account Adjuster Relationship Specialty [place] [address] [facility] [place] [address] PCP - General Family Medicine 05/24/15 01/13/22 Marielle Duque MD [address] [place] [address] PCP - General Internal Medicine 01/14/22 Account Adjuster Relationship Specialty [place] [address] [place] [address] PCP - General Family Medicine 05/24/15 01/13/22 Marielle Duque MD [address] [place] [address] PCP - General Internal Medicine 01/14/22 Account Adjuster Relationship Specialty Start Date End Date Marielle Duque MD [address] [place] [address] PCP - General Internal Medicine 01/14/22 Account Adjuster Relationship Specialty Start Date End Date Marielle Duque MD [address] [place] [address] PCP - General Internal Medicine 01/14/22 Account Adjuster Relationship Specialty Start Date End Date Marielle Duque MD [address] [place] [address] PCP - General Internal Medicine 01/14/22 Account Adjuster Relationship Specialty Start Date End Date Marielle [place] [address] PCP - General Internal Medicine 01/14/22 Account Adjuster Relationship Specialty Start Date End Date Marielle [place] [address] PCP - General Internal Medicine 01/14/22 Account Adjuster Relationship Specialty Start Date End Date Marielle Duque MD [address] [place] [address] PCP - General Internal Medicine 01/14/22 Account Adjuster Relationship Specialty Start Date End Date Marielle Duque MD [address] [place] [address] PCP - General Internal Medicine 01/14/22 Account Adjuster Relationship Specialty Start Date End Date Marielle Duque MD [address] [place] [address] PCP - General Internal Medicine 01/14/22 Account Adjuster Relationship Specialty Start Date End Date Marielle Duque MD [address] [place] [address] PCP - General Internal Medicine 01/14/22 Account Adjuster Relationship Specialty Start Date End Date Marielle Duque MD [address] [place] [address] PCP - General Internal Medicine 01/14/22 Account Adjuster Relationship Specialty Start Date End Date Marielle Duque MD [address] [place] [address] PCP - General Internal Medicine 01/14/22 Account Adjuster Relationship Specialty Start Date End Date Marielle Duque MD [address] [place] [address] PCP - General Internal Medicine 01/14/22 Account Adjuster Relationship Specialty Start Date End Date Marielle Duque MD [address] [place] [address] PCP - General Internal Medicine 01/14/22 Account Adjuster Relationship Specialty Start Date End Date Marielle Dquue MD [address] [place] [address] PCP - General Internal Medicine 01/14/22 Account Adjuster Relationship Specialty Start Date End Date Marielle Duque MD [address] [place] [address] PCP - General Internal Medicine 01/14/22 Account Adjuster Relationship Specialty Start Date End Date Marielle Duque MD [address] [place] [address] PCP - General Internal Medicine 01/14/22 Account Adjuster Relationship Specialty Start Date End Date Marielle Duque MD [address] [place] [address] PCP - General Internal Medicine 01/14/22 Account Adjuster Relationship Specialty Start Date End Date Marielle Duque MD [address] [place] [address] PCP - General Internal Medicine 01/14/22 Account Adjuster Relationship Specialty Start Date End Date Marielle Duque MD [address] [place] [address] PCP - General Internal Medicine 01/14/22 Account Adjuster Relationship Specialty Start Date End Date Marielle Duque MD [address] [place] [address] PCP - General Internal Medicine 01/14/22 Account Adjuster Relationship Specialty Start Date End Date Marielle Duque MD [address] [place] [address] PCP - General Internal Medicine 01/14/22 Account Adjuster Relationship Specialty Start Date End Date Marielle Duque MD [address] [place] [address] PCP - General Internal Medicine 01/14/22 Account Adjuster Relationship Specialty Start Date End Date Marielle Duque MD [address] [place] [address] PCP - General Internal Medicine 01/14/22 Account Adjuster Relationship Specialty Start Date End Date Marielle Duque MD [address] [place] [address] PCP - General Internal Medicine 01/14/22 Account Adjuster Relationship Specialty Start Date End Date Marielle Duque MD [address] [place] [address] PCP - General Internal Medicine 01/14/22 Account Adjuster Relationship Specialty Start Date End Date Marielle Duque MD [address] [place] [address] PCP - General Internal Medicine 01/14/22 Account Adjuster Relationship Specialty Start Date End Date Marielle Duque MD [address] [place] [address] PCP - General Internal Medicine 01/14/22 Account Adjuster Relationship Specialty Start Date End Date Marielle Duque MD [address] [place] [address] PCP - General Internal Medicine 01/14/22 Stephy Cisse MD [address] [place] [address] [place] [address] Consulting Physician Pulmonary Disease 06/30/24 Account Adjuster Relationship Specialty Start Date End Date Marielle Duque MD [address] [place] [address] PCP - General Internal Medicine 01/14/22 Stephy Cisse MD [address] [place] [address] [place] [address] Consulting Physician Pulmonary Disease 06/30/24 Account Adjuster Relationship Specialty Start Date End Date Marielle Duque MD [address] [place] [address] PCP - General Internal Medicine 01/14/22 Stephy Cisse MD [address] [place] [address] [place] [address] Consulting Physician Pulmonary Disease 06/30/24 Account Adjuster Relationship Specialty Start Date End Date Marielle Duque MD [address] [place] [address] PCP - General Internal Medicine 01/14/22 Stephy Cisse MD [address] [place] [address] [place] [address] Consulting Physician Pulmonary Disease 06/30/24 Account Adjuster Relationship Specialty Start Date End Date Marielle Duque MD [address] [place] [address] PCP - General Internal Medicine 01/14/22 Stephy Cisse MD [address] [place] [address] Dr [address] [place] [address] Consulting Physician Pulmonary Disease 06/30/24 Account Adjuster Relationship Specialty Start Date End Date Marielle Duque MD [address] [place] [address] PCP - General Internal Medicine 01/14/22 Stephy Cisse MD [address] [place] [address] [place] [address] Consulting Physician Pulmonary Disease 06/30/24 Account Adjuster Relationship Specialty Start Date End Date Marielle Duque MD [address] [place] [address] PCP - General Internal Medicine 01/14/22 Stephy Cisse MD [address] [place] [address] Dr Lundy [address] [place] [address] Consulting Physician Pulmonary Disease 06/30/24 Account Adjuster Relationship Specialty Start Date End Date Marielle Duque MD [facility] [place] [address] PCP - General Internal Medicine 01/14/22 Stephy Cisse MD [address] [place] [address] [place] [address] Consulting Physician Pulmonary Disease 06/30/24 Account Adjuster Relationship Specialty Start Date End Date Marielle Duque MD [address] [place] [address] [place] [address] PCP - General Internal Medicine 01/14/22 Stephy Cisse MD [address] [place] [address] [place] [address] Consulting Physician Pulmonary Disease 06/30/24 Team Status: Active Member Role/Relationship Status Dates Dr. Colette Goode MD Primary Care Provider Activ e Team Status: Active Member Role/Relationship Status Dates Dr. Colette Goode MD Primary Care Provider Activ e Start: March 14, 2025 Dr. Colette Goode MD Referring Provider Active Start: March 14, 2025 STACIE Stahl Other Provider Active Start: 2024 Jaimee Marshall RETAIL SERVICE REPRESENTATIVE, RETAIL SERVICE REPRESENTATIVE-C Attending Provider Active Start: March 14, 2025 Jaimee Marshall RETAIL SERVICE REPRESENTATIVE, RETAIL SERVICE REPRESENTATIVE-C Other Provider Active S tart: March 14, 2025 Team Status: Active Member Role/Relationship Status Dates Dr. Colette Goode MD Primary Care Provider Activ e Start: March 22, 2025 Dr. Colette Goode MD Referring Provider Active Start: March 22, 2025 STACIE Stahl Attending Provider Active Star t: March 22, 2025 STACIE Stahl Other Provider Active Start: 2024 Jaimee Marshall RETAIL SERVICE REPRESENTATIVE, RETAIL SERVICE REPRESENTATIVE-C Other Provider Active S tart: March 22, 2025 Team Status: Inactive Member Role/Relationship Status Dates Dr. Colette Goode MD Primary Care Provider Activ e Start: March 29, 2025 End: March 29, 2025 Dr. Colette Goode MD Referring Provider Active Start: March 29, 2025 End: March 29, 2025 STACIE Stahl Other Provider Active Start: 2024 End: March 29, 2025 Jaimee Marshall RETAIL SERVICE REPRESENTATIVE, RETAIL SERVICE REPRESENTATIVE-C Attending Provider Active Start: March 29, 2025 End: March 29, 2025 Team Status: Active Member Role/Relationship Status Dates Dr. Colette Goode MD Primary Care Provider Activ e Start: March 29, 2025 Dr. Colette Goode MD Referring Provider Active Start: March 29, 2025 STACIE Stahl Attending Provider Active Star t: March 29, 2025 STACIE Stahl Other Provider Active Start: [facility]2024 Jaimee Marshall RETAIL SERVICE REPRESENTATIVE, RETAIL SERVICE REPRESENTATIVE-C Other Provider Active S tart: March 29, 2025 Team Status: Active Member Role/Relationship Status Dates Dr. Colette Goode MD Primary Care Provider Activ e Start: April 05, 2025 Dr. Colette Goode MD Referring Provider Active Start: April 05, 2025 STACIE Stahl Other Provider Active Start: A 2024 Jaimee Marshall RETAIL SERVICE REPRESENTATIVE, RETAIL SERVICE REPRESENTATIVE-C Attending Provider Active Start: April 05, 2025 [...] Active Start: A ugust 2024 Jaimee Marshall RETAIL SERVICE REPRESENTATIVE, RETAIL SERVICE REPRESENTATIVE-C Other Provider Active S tart: April 05, [...] Active Start: A ugust 2024 Jaimee Marshall RETAIL SERVICE REPRESENTATIVE, RETAIL SERVICE REPRESENTATIVE-C Other Provider Active S tart: April 05, [...] Active Start: A ugust 2024 Jaimee Marshall RETAIL SERVICE REPRESENTATIVE, RETAIL SERVICE REPRESENTATIVE-C Other Provider Active S tart: 2025 Team Status: Inactive Member Role/Relationship Status Dates Dr. Colette Goode MD Primary Care Provider Activ e Start: April 19, 2025 End: April 29, 2025 Dr. Colette Goode MD Referring Provider Active Start: April 19, 2025 End: April 29, 2025 STACIE Stahl Other Provider Active Start: 2024 End: April 29, 2025 Jaimee Marshall RETAIL SERVICE REPRESENTATIVE, RETAIL SERVICE REPRESENTATIVE-C Attending Provider Active Start: April 19, 2025 End: April 29, 2025 Team Status: Active Member Role/Relationship Status Dates Dr. Colette Goode MD Primary Care Provider Activ e Start: April 19, 2025 Dr. Colette Goode MD Referring Provider Active Start: April 19, 2025 STACIE Stahl Attending Provider Active Star t: April 19, 2025 STACIE Stahl Other Provider Active Start: 2024 Jaimee Marshall RETAIL SERVICE REPRESENTATIVE, RETAIL SERVICE REPRESENTATIVE-C Other Provider Active S tart: April 19, [...] Active Start: S eptember 2024 Jaimee Marshall RETAIL SERVICE REPRESENTATIVE, RETAIL SERVICE REPRESENTATIVE-C Attending Provider Active Start: May 03, 2025 Team Status: Active Member Role/Relationship Status Dates Dr. Colette Goode MD Primary Care Provider Activ e Start: May 03, 2025 Dr. Colette Goode MD Referring Provider Active Start: May 03, 2025 STACIE Stahl Other Provider Active Start: S eptember 2024 Jaimee Marshall RETAIL SERVICE REPRESENTATIVE, RETAIL SERVICE REPRESENTATIVE-C Other Provider Active S tart: May 03, [...] Other Provider Active Start: S eptember 2024 End: May 01, 2025 Team Status: Active Member Role/Relationship Status Dates Dr. Colette Goode MD Primary Care Provider Activ e Start: May 03, 2025 Dr. Colette Goode MD Referring Provider Active Start: May 03, 2025 STACIE Stahl Other Provider Active Start: S eptember 2024 Jaimee Marshall RETAIL SERVICE REPRESENTATIVE, RETAIL SERVICE REPRESENTATIVE-C Other Provider Active S tart: May 03, [...] Active Start: S eptember 2024 Jaimee Marshall NP, RETAIL SERVICE REPRESENTATIVE-C Attending Provider Active Start: May 10, 2025 Team Status: Active Member Role/Relationship Status Dates Dr. oClette Goode MD Primary Care Provider Activ e Start: May 10, 2025 Dr. Colette Goode MD Referring Provider Active Start: May 10, 2025 STACIE Stahl Attending Provider Active Star t: May 10, 2025 STACIE Stahl Other Provider Active Start: S noy 2024 Jaimee Marshall RETAIL SERVICE REPRESENTATIVE, RETAIL SERVICE REPRESENTATIVE-C Other Provider Active S tart: May 10, [...] 400 mg, Intravenous, Administer over 60 Minutes, RADIOSONDE SPECIALIST TO PROCEDURE, 1 dose, Starting on Wed11/17/21 [...] use home supply Hazardous Drug. Refer to [facility] Hazardous Drug List on [employer] for Additional Information. Cannabidiol (EPIDIOLEX) is FDA approved for seizures., Drug Name: cannabidiol, Form: Solution, Dose: 350, Dose Units: mg, Length of Therapy: Indefinite, How soon needed? (normally 72 hrs needed to procure): 0-24 hrs, Reason for Non-Formulary: home med 1019 (Given - Provider: Yohan Zabala RN)8 (Given - Provider: Viv Ricketts, TAMMY) 0851 (Given - Provider: Nava Lam RN)2104 (Given - Provider: Brenda De La Rosa RN) 0952 (Given - Provider: BÁRBARA QUICK)2111 (Given - Provider: Brenda De La Rosa RN) famotidine (PEPCID) injection 20 mg (CANCELED) 20 mg, Intravenous, 2 times daily, First dose on Lenka 07/16/22 at 0900, Aseptically dilute dose of famotidine [...] BÁRBARA QUICK)2111 (Given - Provider: Brenda De L aRosa RN) levETIRAcetam (KEPPRA) injection 1,000 mg (COMPLETED) [...] Wed07/17/22 at 0500, Indication: Other: (specify), 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) 0534 (New Bag - Provider: Kerry Escalera RN)1703 (New Bag - Provider: Yohan Zabala RN) 0707 (New Bag - Provider: Brenda De La Rosa RN) loratadine (CLARITIN) tablet 10 mg 10 [...] - Provider: Brenda De La Rosa RN) piperacillin-tazobactam (ZOSYN) IVPB 3.375 g (premix) 3.375 [...] Entry - Provider: Brenda De La Rosa RN)171 (Given - Provider: BÁRBARA QUICK)211 (Given - Provider: Brenda De La Rosa RN) sodium chloride (PF) (NS) flush 5 mL(Linked Group 1) 5 mL, Intravenous, Every 8 hours scheduled, First dose on Wed07/15/22 at 0600, Saline lock 0600 (Canceled Entry - Provider: Kerry Escalera RN)1400 (Canceled Entry - Provider: Yohan Zabala RN)2130 (Given - Provider: Viv Ricketts RN) 0600 [...] 0235, VESICANT 0957 (Given - Provider: Yohan Zabala, RN) diazePAM (VALIUM) syringe 5 mg 5 mg, Intravenous, Every 6 hours PRN, other, seizures, Starting on Wed07/19/22 at 1149, VESICANT 3 (Given - Provider: Brenda De La Rosa, RN) diphenhydrAMINE (BENADRYL) 12.5 mg/5 mL liquid 12.5 mg (CANCELED) 12.5 mg, Tube, Every 8 hours PRN, Please give prior to vancomycin administration., Starting on Wed07/16/22 at 0214 1018 (Given - Provider: Yohan Zabala, RN) guaiFENesin (ROBITUSSIN) 100 mg/5 mL syrup [...] each, Intrathecal, As needed, spasticity, Starting on Wed07/16/22 at 0756, #Do Not Chart On This [...] on Wed07/20/22 at 1428, For 1 dose naloxone (NARCAN) [...] 0152 (Given - Provider: Brenda De La Rosa, TAMMY)2112 (Given - Provider: Brenda De La Rosa [...] - Provider: Brenda De La Rosa, TAMMY) 0151 (New Bag - Provider: Brenda De La Rosa, RN) Linked Groups Order Group 1: Saline [...] BE BASED ON THE PRIMARY CLINICAL RECORDS. [employer] [facility]. provides no warranty or guarantee of the accuracy or completeness of information in this document.
[2025-05-20 23:37] LABS: Creatinine, Urine (random) 19.70 mg/dL (28.00-217.00)
[2025-05-20] MEDS: 0.9% Normal Saline (1000mL) 1,000 ML 125 ML IV (23:45)
[2025-05-21] VITALS (7 sets, daily range): BP systolic 126–154; BP diastolic 78–94; PULSE 95–112; RESP 16–20; TEMP 36.2–36.6; O2SAT 98–100
[2025-05-21] MEDS: Pantoprazole Sodium 40 MG in 0.9% Normal Saline (100mL MB+) 100 ML 330 MG IV ×3 (00:12→22:12)
[2025-05-21] MEDS: Meropenem 500 MG in 0.9% Normal Saline (50mL MB+) 50 ML 100 MG IV ×3 (01:00→20:56)
[2025-05-21 01:28] LABS: Anion Gap 19 (5-15); BUN 75 mg/dL (4-19); BUN/Creat Ratio 23.9 RATIO (10-20); Calcium,Total 8.8 mg/dL (7.6-11.0); Carbon Dioxide 19.3 mmol/L (21.0-32.0); Chloride 97 mmol/L (98-108); Estimated Creatinine Clearance 16.01 ml/min (50-250); Glucose 223 mg/dL (70-99); Potassium 5.1 mmol/L (3.3-5.1)
--- NOTE | 2025-05-21 03:57 | PCM.RX.CS ---
Consult Antibiotic Management Pharmacy has been consulted to manage selected antibiotic: Vancomycin Type of Intervention Type of Consult: New start Labs Labs: Sodium Cancelled 05/21/25 02:05 Potassium Cancelled 05/21/25 02:05 Chloride Cancelled 05/21/25 02:05 Carbon Dioxide Cancelled 05/21/25 02:05 Anion Gap Cancelled 05/21/25 02:05 BUN Cancelled 05/21/25 02:05 Creatinine Cancelled 05/21/25 02:05 Est GFR (MDRD) Non-Af Cancelled 05/21/25 02:05 BUN/Creatinine Ratio Cancelled 05/21/25 02:05 Glucose Cancelled 05/21/25 02:05 Random Vancomycin 88.8 ug/mL (0.0-15.0) H 05/20/25 21:07 Microbiology Microbiology: Microbiology 05/20/25 22:17 Wound - Buttock Skin and Soft Tissue MRSA/MSSA (PCR - Final Dosing Weight Weight used for dosin.3 kg Pharmacy Plan for Drug Dosing Pharmacy Plan for Drug Dosing: Pharmacy Service will continue to monitor and adjust dosing as required. PATIENT ON VANCO PRIOR TO ADMISSION. TROUGH DRAWN IN ER 88.8. DO NOT START AND DRAW RANDOM LEVEL TOMORROW MORNING WITH MORNING LABS Follow-Up Labs Follow-Up Labs: Trough: Vancomycin Date/Time Labs Ordered Labs to be done on [date and time ordered]: 05/22 @ 0600
[2025-05-21] MEDS: FIBER PO ×2 (04:14→09:46)
[2025-05-21] MEDS: NUTRITIONAL SUPPLEMENT PO ×2 (04:14→09:46)
[2025-05-21 04:39] LABS: Hematocrit 35.1 % (37-47); Hemoglobin 10.5 g/dL (12.0-15.0); Immature Granulocytes Count 0.100 X10^3/uL (0.0-0.0); Mean Corp Hgb Conc 29.9 g/dL (32-36); Mean Corpuscular Volume 91.6 fL (81-99); Mean Platelet Vol. 11.2 fl (6.2-12.0); NRBC Flagged by Analyzer 0 % (0-5); Platelet Count 218 K/mm3 (150-450); RBC Distribution Width CV 15.1 % (11.6-14.6); RBC Distribution Width SD 51.1 fl (35.1-43.9); Red Blood Count 3.83 M/mm3 (4.2-5.4); White Blood Count 11.6 K/mm3 (4.4-11.0)
[2025-05-21 05:21] LABS: AST(SGOT) 21 U/L (<=31); Alanine Aminotransfer ALT/SGPT 22 U/L (<=34); Albumin, Serum 3.3 g/dL (3.5-5.0); Alkaline Phosphatase 139 U/L (35-104); Anion Gap 15 (5-15); BUN 72 mg/dL (4-19); BUN/Creat Ratio 23.1 RATIO (10-20); Calcium,Total 8.4 mg/dL (7.6-11.0); Carbon Dioxide 24.6 mmol/L (21.0-32.0); Chloride 102 mmol/L (98-108); Estimated Creatinine Clearance 15.96 ml/min (50-250); Globulin 3.1 g/dL (2.2-4.2); Glucose 83 mg/dL (70-99); Potassium 4.9 mmol/L (3.3-5.1)
--- NOTE | 2025-05-21 08:07 | PCM.PN.HOSP ---
Reason for Visit Chief Complaint: Decreased UOP, recent URI sxs. Subjective Subjective Patient nonverbal at baseline. Per her mother she seems to be perking up today. Urine output seems to be improved with Myles in place and IV fluids. We discussed that the etiology of her kidney injury is unclear at this time but her FeNa is intrinsically renal. Objective Data Objective Data Vital Signs: Vital Signs Temp Pulse Resp BP Pulse Ox O2 Del Method O2 Flow Rate 97.8 F 105 H 18 126/78 H 99 Nasal Cannula 2 05/21/25 05:26 05/21/25 05:26 05/21/25 05:26 05/21/25 05:26 05/21/25 08:02 05/21/25 08:02 05/21/25 08:02 Oxygen Flow Rate (L/min) 2 Oxygen Delivery Method Nasal Cannula Weight: 40.3 kg Body Mass Index (BMI) 21.4 Intake & Output: Intake and Output for Last 24 Hours 05/19/25 05/20/25 05/21/25 23:59 23:59 23:59 Intake Total 750 / 750 1075 / 1075 Output Total 350 / 350 Balance 750 / 750 725 / 725 Lab / Micro Data 05/21/25 04:20 05/21/25 04:20 Labs: Laboratory Results - last 24 hr 05/20/25 18:05: Urine Color Yellow, Urine Clarity Sl. Cloudy, Urine pH 6.5, Ur Specific [place] 1.010, Urine Protein 100 H, Urine Glucose (UA) Normal, Urine Ketones Negative, Urine Occult Blood 250 H, Urine Nitrite Negative, Urine Bilirubin Negative, Urine Urobilinogen Normal, Ur Leukocyte Esterase 500 H, Urine RBC 5-10 SEEN, Urine WBC 10-25 SEEN, Ur Squamous Epith Cells 0-5 SEEN, Ur Renal Epithelial Cell 0-5 SEEN, Urine Bacteria 3+, Urine Mucus 0 SEEN, Ur Random Sodium 36, Urine Creatinine 19.70 L 05/20/25 18:15: WBC 13.2 H, RBC 4.06 L, Hgb 11.1 L, Hct 37.2, MCV 91.6, MCH 27.3, MCHC 29.8 L, RDW Std Deviation 50.6 H, RDW Coeff of Chad 15.0 H, Plt Count 290, MPV 10.2, Immature Gran % (Auto) 0.500, Neut % (Auto) 78.6 H, Lymph % (Auto) 9.5 L, Stewart % (Auto) 9.9, Eos % (Auto) 1.0, Baso % (Auto) 0.5, Absolute Neuts (auto) 10.4 H, Absolute Lymphs (auto) 1.25, Nucleated RBC % 0, Sodium 139, Potassium 6.0 H*, Chloride 97 L, Carbon Dioxide 25.2, Anion Gap 16 H, BUN 78 H, Creatinine 3.12 H, Est GFR (MDRD) Non-Af 19 L, BUN/Creatinine Ratio 25.1 H, Glucose 103 H, Calcium 9.3, Phosphorus 5.3 H, Magnesium 3.5 H 05/20/25 20:23: POC Glucose 96 05/20/25 21:07: Random Vancomycin 88.8 H 05/20/25 21:19: POC Glucose 254 H 05/21/25 00:05: Sodium 136, Potassium 5.1, Chloride 97 L, Carbon Dioxide 19.3 L, Anion Gap 19 H, BUN 75 H, Creatinine 3.12 H, Estim Creat Clear Calc 16.01 L, Est GFR (MDRD) Non-Af 19 L, BUN/Creatinine Ratio 23.9 H, Glucose 223 H, Calcium 8.8 05/21/25 02:05: Sodium Cancelled, Potassium Cancelled, Chloride Cancelled, Carbon Dioxide Cancelled, Anion Gap Cancelled, BUN Cancelled, Creatinine Cancelled, Estim Creat Clear Calc Cancelled, Est GFR (MDRD) Non-Af Cancelled, BUN/Creatinine Ratio Cancelled, Glucose Cancelled, Calcium Cancelled 05/21/25 04:20: WBC 11.6 H, RBC 3.83 L, Hgb 10.5 L, Hct 35.1 L, MCV 91.6, MCH 27.4, MCHC 29.9 L, RDW Std Deviation 51.1 H, RDW Coeff of Chad 15.1 H, Plt Count 218, MPV 11.2, Immature Gran % (Auto) 0.900, Neut % (Auto) 76.4 H, Lymph % (Auto) 9.6 L, Stewart % (Auto) 12.2 H, Eos % (Auto) 0.5, Baso % (Auto) 0.4, Absolute Neuts (auto) 8.9 H, Absolute Lymphs (auto) 1.11, Nucleated RBC % 0, Sodium 141, Potassium 4.9, Chloride 102, Carbon Dioxide 24.6, Anion Gap 15, BUN 72 H, Creatinine 3.13 H, Estim Creat Clear Calc 15.96 L, Est GFR (MDRD) Non-Af 19 L, BUN/Creatinine Ratio 23.1 H, Glucose 83, Calcium 8.4, Total Bilirubin 0.17, AST 21, ALT 22, Alkaline Phosphatase 139 H, Total Protein 6.5, Albumin 3.3 L, Globulin 3.1, Albumin/Globulin Ratio 1.1 Micro: Microbiology 05/21/25 00:20 Mucosa - Nasopharyngeal Respiratory Panel (PCR) - Final 05/20/25 22:17 Wound - Buttock Skin and Soft Tissue MRSA/MSSA (PCR - Final Radiography Diagnostic Testing: Radiology Impression Abdomen/Pelvis CT 05/20/25 19:39 IMPRESSION: Gastrointestinal findings to be correlated clinically are discussed above in detail. - Severe right-sided ischial decubitus ulcer contacting the bony cortex of the ischium. Osteomyelitis is suspected. - Multiple other findings and study limitations discussed above. Reading Location: [facility] Rhythm Strip Rhythm Strip: Sinus Rhythm Rate: 97 Ectopy: None Physical Exam Const alert; Negative for oriented x3 Constitutional Narrative: Nonverbal, contracted, white female, lying in bed, mother and nursing staff at bedside, appears comfortable currently and no signs of distress HEENT head/scalp atraumatic and moist oral mucous membranes Head and Scalp: normocephalic Resp normal respiratory effort, no retractions, no use of accessory muscles and clear to auscultation bilaterally Auscultation: Negative for rales, rhonchi or wheezes Cardio regular rate, regular rhythm, S1 normal heart sound, S2 normal heart sound, no murmurs, no rub, no gallops and no clicks GI normal to inspection, nondistended, normoactive bowel sounds and soft to palpation GI Narrative: PEG tube in place Extremity Extremity Narrative: Chronic contractions noted bilateral upper and lower extremities, trace bilateral lower extremity edema, pedal pulses and radial pulses are 2+, no cyanosis or clubbing Neuro Neuro Narrative: Patient awake but does not interact and this appears to be baseline, significant contractures noted Speech: Negative for speech normal Psych Psych Narrative: Appears calm at this time Assessment & Plan Assessment/Plan (1) Osteomyelitis of pelvic region: (2) Acute hyperkalemia: (3) DAE (acute kidney injury): PLAN: Plan DAE secondary to ATN -FeNa is prerenal in nature - Does not appear to be consistent with dehydration - Random Vanco level was 88.8 so could be vancomycin toxicity which is highly suspected by nephrology - Renal function is not worsening since she came in however no significant improvement - Urine output seems to be improving so we will continue Myles at this time - CT shows no hydronephrosis - Highly doubt this is infectious with chronic indwelling Myles catheter but will continue antibiotics for chronic osteomyelitis with direction by infectious disease - No urgent needs for dialysis at this time - No significant acidosis at this time - Nephrology following-appreciate input Acute hyperkalemia - Resolved - Treated with temporizing agents on admissions and currently stable - Repeat lab in a.m. 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 Severe malnutrition - Continue tube feeds - Dietitian is consulted Chronic allergic rhinitis - Continue home Flonase - Continue home loratadine GERD - Continue home IV PPI DVT prophylaxis - Continue Lovenox CODE STATUS - Full code - Palliative care is following Charges/Coding Visit Charges Inpatient E&M: 79177 Subs Hosp L2
--- NOTE | 2025-05-21 09:02 | CON.PCM.PA_ITS ---
FORM[facility]LY [facility] Medical History GERD (gastroesophageal reflux disease) Allergic rhinitis Seizure disorder Chronic indwelling Myles catheter Decubitus ulcer of sacral area Decubitus ulcer of right buttock, stage 4 Malnutrition Anemia Celiac disease Quadriplegic infantile cerebral palsy Home Medications ?Medication ?Instructions ?Recorded ?Last Taken ?Type acetaminophen 325 mg tablet (Aphen) 325 mg PO Q6H PRN fever or pain 03/14/25 Unknown History albuterol (refill) 90 90 mcg inhalation PRN Unknown History mcg/actuation aerosol inhaler baclofen 50 mcg/mL intrathecal 50 mcg intrathecal Q24H 03/14/25 Unknown History solution diazepam (Valtoco) 15 mg intranasal Q4H PRN sei zure 03/14/25 Unknown History activity diazepam 2 mg tablet 2 mg PO DAILY 03/14/25 Unkno wn History fluconazole 100 mg tablet 100 mg PO Q72H 03/14/25 Unkn own History (Diflucan) fluticasone propionate 50 2 spray intranasal DAILY PRN nasal 03/14/25 Unknown History mcg/actuation nasal congestion spray,suspension (Aller-Kenny) ibuprofen 200 mg tablet (IBU-200) 200 mg PO Q8H PRN fe marbella or pain 03/14/25 Unknown History levetiracetam 100 mg/mL oral 1,500 mg PO Q12H 03/14/25 Unknown History solution loratadine 10 mg tablet 10 mg PO DAILY 03/14/25 Unkn own History medroxyprogesterone 150 mg/mL 150 mg IM QMONTH 5 Unknown History intramuscular suspension (Depo-Provera) omeprazole 40 mg capsule,delayed 40 mg PO DAILY Unknown History release polyethylene glycol 3350 17 17 g PO DAILY PRN constipa tion 03/14/25 Unknown History gram/dose oral powder (ClearLax) promethazine 12.5 mg rectal 12.5 mg ND Q6H PRN nausea 03/14/25 Unknown History suppository singular 10 mg G-tube DAILY 03/14/25 Unknown History tramadol 50 mg tablet 50 mg PO DAILY PRN pain 02/27 02/21 Unknown History lamotrigine 150 mg tablet 150 mg PO BID 05/20/25 Unkno wn History Allergy/AdvReac Type Severity Reaction Status Date / Time cefdinir Allergy Intermediate Fever and Verified 05/20/25 14:53 skin rash ciprofloxacin (From Cipro) Allergy Intermediate Rash Verified 05/20/25 14:53 Penicillins (PCN) AdvReac Blisters Verified 05/20/25 14:53 Family History adopted Surgical History S/P gastrostomy History of back surgery Status post insertion of intrathecal baclofen pump History of tonsillectomy and adenoidectomy S/P cholecystectomy Social History household members: family Smoking Status: Never smoker alcohol intake: never substance use type: does not use ROS ROS Narrative unable to participate Review of Systems ROS Unobtainable: due to mental condition Physical Exam Const Constitutional Narrative: Patient is currently not alert. Orientation / Consciousness: lethargic HEENT HEENT Narrative: head is enlarged in a head/body ratio Resp Resp Narrative: 2 liters NC at bedside and is currently on 2L Effort and Inspection: uses accessory muscles Auscultation: diminished lung sounds Cardio regular rhythm Rate: tachycardic GI normal to inspection, nondistended, normoactive bowel sounds GI Narrative: pt has G-tube placment with noted leaking. This is not new for her. Tube feeding infusing at 35ml/hr with no flushes. Extremity Extremity Narrative: 1+ pulses Skin Skin Narrative: significant decub to the sacrum. stage IV Neuro Neuro Narrative: hx of of CP, quadrapalegia and non verbal. bed/wheelchair bound Psych Psych Narrative: unable to assess Charges/Coding Palliative Care Palliative Care: [id number] New Pt Consult 80+ min HPI Current admission Current Code Status: full code Associated Diagnosis: DAE, Complicated UTI, hyperkalemia (resolved), malnutrition , FTT Consult Data Date of Consult: 05/21/25 Location of consult: PCU Reason for referral: Goals of care/Code status Referral source: Dr. Gomez Palliative care diagnosis (Summary list): Failure to thrive, decubitus ulcer, quadriplegic infantile cerebral palsy. Palliative care services/treatment (Accepted, as consult): accepted Case discussed with referring provider: mothers goals of care and code status-no change HPI Narrative HPI Narrative: 05/21/25:Marcia is a 35 year old female that presented to the ED with her mother on 05/20/25 with anuric systems. She does have chronic indwelling catheter. She also has a indwelling G tube in which she receives tube feedings. Prior to meeting with the patient at bedside I reviewed previous documentation, labs and any available radiological studies. I then met the patient at bedside. There was no family at bedside during my initial assessment. Patient was sleeping and not interactive. I was able to perform a basic physical assessment although patient was unable to participate in a review of systems. I then met with the patients mother, Peg, at bedside once she arrived. Peg did state that she is a retired RN and that she has been caring for Marcia at home. She stated that Marcia will never go to an institution and she will always remain home. She has 2 other special needs children at home. She endorses that Marcia began to experience Oliguria and then became anuric. She has been on vancomycin and Zosyn for her chronic stage IV decubitus wound to the sacrum. E okay status is not seizures extensive discussion about goals of care going forward. Peg states that she doesn't believe hospice because they kill people. I did attempt to gently provide education on hospice but she states that she will never use them. I then discussed the role of palliative care and how they could provide an extra layer of support for her and her daughter. She states that she would be interested in obtaining more information. I will provide her with brochures of the companies that could best accommodate her and her daughter best. I will then check back tomorrow to answer an questions she may have. Lastly, I discussed her code status. Peg states she is a full code, she wants to live. I did explain the benefits versus burdens of chest compressions on someone as frail as Marcia is, Peg reintegrated that she is a full code and that she has been told before that she was not going to live through being intubated with MRSA in her lungs and she took her home 5 days later. she will remain a full code. Peg cares for her 3 special needs children at home alone, with assistance of Home health care. I did update Dr. Gomez about the conversation with Peg. I have spoke with case management and social work. All questions to the patient's mother had were answered. 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, seizure disorder, fecal/urinary incontinence with feeding tube and chronic indwelling Myles catheter, Chronic normocytic anemia who presents to the [facility] ED on 05/20/2025 with history of decreased urine output currently on IV antibiotics at home via PICC line specifically Zosyn for her wounds with wound care following with worsening urine output starting the day prior with no UOP purported on day of presentation, reportedly tolerating tube feeds which are continuous with hourly flushes with no fevers however did have a recent URI type illness with some increased congestions and secretions over the last 2 days but no increased oxygen needs prompting ED evaluation. Workup in the ED included T97.7, heart rate 89, BP 102/74, respiratory rate 16, 100% on 2 L nasal cannula with most recent repeat vitals heart rate 108, BP 107/69, respiratory rate 22, 100% on room air, CBC with WBC 13.2, hemoglobin 0.1, MCV 91.6, platelet 290 with left shift, BMP with potassium 6.0 not noted to be hemolyzed, chloride 97, anion gap 16, BUN/creatinine 78/3.12, glucose 103, urinalysis noted to be cloudy, protein 100, occult blood 250, negative nitrite, leukocyte esterase 500, urine RBCs 5-10, urine WBC 10-25 with 3+ urine bacteria, CT abdomen and pelvis with severe right- sided ischial decubitus ulcer containing the bony cortex of the ischium with osteitis suspected likely chronic, air-fluid levels within portions of the colon, soft tissue thickening at the anorectal junction, irregularity posterior skin surface along the anus extending anterior inferiorly. In the ED patient administered Tylenol 3 25 mg per G-tube, Cathflo for her access PICC, albuterol and elation x 1, maintenance IV fluid, dextrose, insulin 10 units IV x 1 as well as lamotrigine 150 mg per G-tube and Keppra 1500 mg per G-tube x 1. Palliative Assessment Advanced Directive - Current Admission Advance Directive: Advance Directive ON ADMISSION - REFERENCE 3 Do you have a Healthcare No 05/20/25 23:33 Living Will? Do you have a Healthcare Power Yes 05/20/25 23:33 of Filter Tank Tender Helper? Is a Healthcare Power of No, requested patient bring 05/20/25 23:33 Filter Tank Tender Helper present in the copy into [facility] medical rec Name of Medical Power of Peg Daniel 05/20/25 23:33 Filter Tank Tender Helper Do You Want Additional Declined 05/20/25 23:33 Information on Advanced Directives or Healthcare Proxy/DPOA comments: mother Peg Daniel: [phone] Psychosocial/Spiritual Information Living situation/Marital status: lives with mother Supports: mother Adventist/Angelia or spiritual preference: mormon Spiritual distress: unable to assess Prior functional status: bedbound but does have a specialized WC, G-tube feed, Assistive devices at home: wheelchair Cultrual issues: mother does not believe in hospice Information about the patient as a person: pt is mostly nocturnal, per mother. She enjoys outings with mother and siblings. Communicates with blinking eyes for yes and head turn for no, per mother. Symptoms Palliative performance scale: 10 Palliative prognostic index: 14.0 (If the PPI is greater than 6.0, survival is < three weeks.) Dyspnea symptoms: Moderate Anorexia symptoms: Moderate Cough symptoms: None Fatigue symptoms: Severe Weakness symptoms: Severe Side Effects & Interventions: unable to assess cognition related to pt being non-verbal at baseline and currently not able to communicate in her typical fashion with blinking yes and no, related to letheragy. Objective Data Objective Data contractures noted to lower extremities RT infantile CP Vital Signs: Vital Signs Temp Pulse Resp BP Pulse Ox O2 Del Method O2 Flow Rate 97.8 F 105 H 18 126/78 H 99 Nasal Cannula 2 05/21/25 05:26 05/21/25 05:26 05/21/25 05:26 05/21/25 05:26 05/21/25 08:02 05/21/25 08:02 05/21/25 08:02 Oxygen Flow Rate (L/min) 2 Oxygen Delivery Method Nasal Cannula Weight: 88 lb 13.541 oz Body Mass Index (BMI) 21.4 Intake & Output: Intake and Output for Last 24 Hours 05/19/25 05/20/25 05/21/25 23:59 23:59 23:59 Intake Total 750 / 750 1075 / 1075 Output Total 350 / 350 Balance 750 / 750 725 / 725 Lab / Micro Data Attestation: I reviewed the patient's lab results. Lab results narrative: Patient is showing a slight improvement in her WBCs which are now 11.6 from 13.2 yesterday. Hemoglobin is slightly lower than yesterday at 10.5. Patient's potassium has normalized and is now 4.9. Kidney function shows a BUN of 72 from 78 yesterday. Creatinine is slightly worse today with a 3.13 compared to 3.12 yesterday. GFR remains the same at 19. 05/21/25 04:20 05/21/25 04:20 Labs: Laboratory Results - last 24 hr 05/20/25 18:05: Urine Color Yellow, Urine Clarity Sl. Cloudy, Urine pH 6.5, Ur Specific [place] 1.010, Urine Protein 100 H, Urine Glucose (UA) Normal, Urine Ketones Negative, Urine Occult Blood 250 H, Urine Nitrite Negative, Urine Bilirubin Negative, Urine Urobilinogen Normal, Ur Leukocyte Esterase 500 H, Urine RBC 5-10 SEEN, Urine WBC 10-25 SEEN, Ur Squamous Epith Cells 0-5 SEEN, Ur Renal Epithelial Cell 0-5 SEEN, Urine Bacteria 3+, Urine Mucus 0 SEEN, Ur Random Sodium 36, Urine Creatinine 19.70 L 05/20/25 18:15: WBC 13.2 H, RBC 4.06 L, Hgb 11.1 L, Hct 37.2, MCV 91.6, MCH 27.3, MCHC 29.8 L, RDW Std Deviation 50.6 H, RDW Coeff of Chad 15.0 H, Plt Count 290, MPV 10.2, Immature Gran % (Auto) 0.500, Neut % (Auto) 78.6 H, Lymph % (Auto) 9.5 L, Branch % (Auto) 9.9, Eos % (Auto) 1.0, Baso % (Auto) 0.5, Absolute Neuts (auto) 10.4 H, Absolute Lymphs (auto) 1.25, Nucleated RBC % 0, Sodium 139, Potassium 6.0 H*, Chloride 97 L, Carbon Dioxide 25.2, Anion Gap 16 H, BUN 78 H, Creatinine 3.12 H, Est GFR (MDRD) Non-Af 19 L, BUN/Creatinine Ratio 25.1 H, G lucose 103 H, Calcium 9.3, Phosphorus 5.3 H, Magnesium 3.5 H 05/20/25 20:23: POC Glucose 96 05/20/25 21:07: Random Vancomycin 88.8 H 05/20/25 21:19: POC Glucose 254 H 05/21/25 00:05: Sodium 136, Potassium 5.1, Chloride 97 L, Carbon Dioxide 19.3 L, Anion Gap 19 H, BUN 75 H, Creatinine 3.12 H, Estim Creat Clear Calc 16.01 L, Est GFR (MDRD) Non-Af 19 L, BUN/Creatinine Ratio 23.9 H, Glucose 223 H, Calcium 8.8 05/21/25 02:05: Sodium Cancelled, Potassium Cancelled, Chloride Cancelled, Carbon Dioxide Cancelled, Anion Gap Cancelled, BUN Cancelled, Creatinine Cancelled, Estim Creat Clear Calc Cancelled, Est GFR (MDRD) Non-Af Cancelled, BUN/Creatinine Ratio Cancelled, Glucose Cancelled, Calcium Cancelled 05/21/25 04:20: WBC 11.6 H, RBC 3.83 L, Hgb 10.5 L, Hct 35.1 L, MCV 91.6, MCH 27.4, MCHC 29.9 L, RDW Std Deviation 51.1 H, RDW Coeff of Chad 15.1 H, Plt Count 218, MPV 11.2, Immature Gran % (Auto) 0.900, Neut % (Auto) 76.4 H, Lymph % (Auto) 9.6 L, Branch % (Auto) 12.2 H, Eos % (Auto) 0.5, Baso % (Auto) 0.4, A bsolute Neuts (auto) 8.9 H, Absolute Lymphs (auto) 1.11, Nucleated RBC % 0, Sodium 141, Potassium 4.9, Chloride 102, Carbon Dioxide 24.6, Anion Gap 15, BUN 72 H, Creatinine 3.13 H, Estim Creat Clear Calc 15.96 L, Est GFR (MDRD) Non-Af 19 L, BUN/Creatinine Ratio 23.1 H, Glucose 83, Calcium 8.4, Total Bilirubin 0.17, AST 21, ALT 22, Alkaline Phosphatase 139 H, Total Protein 6.5, Albumin 3.3 L, Globulin 3.1, Albumin/Globulin Ratio 1.1 Micro: Microbiology 05/21/25 01:25 Nasal Secretion MRSA (PCR) - Final 05/21/25 00:20 Mucosa - Nasopharyngeal Respiratory Panel (PCR) - Final 05/20/25 22:17 Wound - Buttock Skin and Soft Tissue MRSA/MSSA (PCR - Final Radiography Diagnostic Testing: Radiology Impression Abdomen/Pelvis CT 05/20/25 19:39 IMPRESSION: Gastrointestinal findings to be correlated clinically are discussed above in detail. - Severe right-sided ischial decubitus ulcer contacting the bony cortex of the ischium. Osteomyelitis is suspected. - Multiple other findings and study limitations discussed above. Reading Location: [facility] Rhythm Strip Rhythm Strip: Sinus Rhythm Rate: 97 Ectopy: None Impressions & Recommendations Patient & Family Issues discussed with the patient and family: goals of care, code status, outpatient palliative services Patient goal: unable to participate Family goal: pt to return home with mother Ethical & Legal Ethical and legal: mother is POA Impressions Impressions: Mother is very adamant that the patient wants to live and that she be a full code with all interventions up to and including dialysis if needed Recommentation Palliative recommendations: pt would qualify for hospice if mother chooses to elect. I do recommend that the pt does receive outpatient palliative care. Encouter Achieved as a result of this Palliative Care Encounter: [ [id number], [id number], [phone], [id number])minutes were spent in total for this visit which consisted, primarily of counseling and education dealing with the complex and emotionally intense issues of symptom management and palliative care in the setting of serious and potentially life-threatening illness. Review of documentation, labs and radiological studies. ?Patient/family had the opportunity to ask questions Plan (1) DAE (acute kidney injury): PLAN: medical per primary team (2) Quadriplegic infantile cerebral palsy: PLAN: medical management per primary team (3) Acute hyperkalemia: PLAN: resolving (4) Chronic indwelling Myles catheter: PLAN: medical management per primary team (5) Palliative care encounter: PLAN: recommend outpatient palliative care services (6) Counseling regarding advance directives and goals of care: PLAN: *Pt mother states that she wants pt to be a full code *recommend more help in the home so she may be able to reposition the pt every 2 hours to avoid continued decubitus ulcers. *mother wants all interventions up to and including dialysis if needed
[2025-05-21] MEDS: 0.9% Normal Saline (250mL Bag) 250 ML 15 ML IV (09:34)
[2025-05-21] MEDS: levETIRAcetam Oral Solution 500 MG/5 ML 1500 MG PO ×2 (10:01→20:59)
--- NOTE | 2025-05-21 11:05 | PCM.CONS.R ---
Assessment & Plan Assessment/Plan (1) DAE (acute kidney injury): PLAN: Baseline creatinine normal about 0.3. CT abdomen without any hydronephrosis. Urine analysis will probably not be reliable due to chronic indwelling Myles catheter. She has been on vancomycin and Zosyn for about 3 weeks now for her decubitus ulcer. Random vancomycin level came back fairly high at 88. Likely cause of DAE. Presumably ATN. Potassium is okay. Hopefully will recover. HPI Consult Data Date of Consult: 05/21/25 HPI Narrative Reason for Consultation: Acute renal failure HPI Narrative: JOCELIN JOSEPH, is a 35 F who presents to the hospital with anuria, DAE. Nephrology on consultation in view of DAE. Patient is nonverbal at baseline, mother takes care of her full-time. Has a indwelling Myles catheter for about 2 years now. Myles catheter was changed frequently recently. She was diagnosed with decubitus ulcer, started on vancomycin and Zosyn via PICC line. Mom says that the PICC line was not working very well, was taking a long time for infusions. Urine output dropped off for the last 2 days, mother flushed it but did not help. Found to have DAE with a creatinine of 3.2. Baseline creatinine is normal about 0.3-0.4. [facility] Medical History GERD (gastroesophageal reflux disease) Allergic rhinitis Seizure disorder Chronic indwelling Myles catheter Decubitus ulcer of sacral area Decubitus ulcer of right buttock, stage 4 Malnutrition Anemia Celiac disease Quadriplegic infantile cerebral palsy Home Medications ?Medication ?Instructions ?Recorded ?Last Taken ?Type acetaminophen 325 mg tablet (Aphen) 325 mg PO Q6H PRN fever or pain 03/14/25 Unknown History albuterol (refill) 90 90 mcg inhalation PRN 03/14/25 Unknown History mcg/actuation aerosol inhaler baclofen 50 mcg/mL intrathecal 50 mcg intrathecal Q24H 03/14/25 Unknown History solution diazepam (Valtoco) 15 mg intranasal Q4H PRN seizure 03/14/25 Unknown History activity diazepam 2 mg tablet 2 mg PO DAILY 03/14/25 Unknown History fluconazole 100 mg tablet 100 mg PO Q72H 03/14/25 Unknown History (Diflucan) fluticasone propionate 50 2 spray intranasal DAILY PRN nasal 03/14/25 Unknown History mcg/actuation nasal congestion spray,suspension (Aller-Kenny) ibuprofen 200 mg tablet (IBU-200) 200 mg PO Q8H PRN fever or pain 03/14/25 Unknown History levetiracetam 100 mg/mL oral 1,500 mg PO Q12H 03/14/25 Unknown History solution loratadine 10 mg tablet 10 mg PO DAILY 03/14/25 Unknown History medroxyprogesterone 150 mg/mL 150 mg IM QMONTH 03/14/25 Unknown History intramuscular suspension (Depo-Provera) omeprazole 40 mg capsule,delayed 40 mg PO DAILY 03/14/25 Unknown History release polyethylene glycol 3350 17 17 g PO DAILY PRN constipation 03/14/25 Unknown History gram/dose oral powder (ClearLax) promethazine 12.5 mg rectal 12.5 mg IA Q6H PRN nausea 03/14/25 Unknown History suppository singular 10 mg G-tube DAILY 03/14/25 Unknown History tramadol 50 mg tablet 50 mg PO DAILY PRN pain 03/14/25 Unknown History lamotrigine 150 mg tablet 150 mg PO BID 05/20/25 Unknown History Allergy/AdvReac Type Severity Reaction Status Date / Time cefdinir Allergy Intermediate Fever and Verified 05/20/25 14:53 skin rash ciprofloxacin (From Cipro) Allergy Intermediate Rash Verified 05/20/25 14:53 Penicillins (PCN) AdvReac Blisters Verified 05/20/25 14:53 Family History adopted Surgical History S/P gastrostomy History of back surgery Status post insertion of intrathecal baclofen pump History of tonsillectomy and adenoidectomy S/P cholecystectomy Social History household members: family Smoking Status: Never smoker alcohol intake: never substance use type: does not use ROS ROS Narrative Unable to obtain Physical Exam Narrative no obvious distress no pallor no icterus no JVD s1s2 no murmurs lungs clear abdomen soft no organomegaly Lab / Micro Data 05/21/25 04:20 05/21/25 04:20 Labs: Laboratory Results - last 24 hr 05/20/25 18:05: Urine Color Yellow, Urine Clarity Sl. Cloudy, Urine pH 6.5, Ur Specific [place] 1.010, Urine Protein 100 H, Urine Glucose (UA) Normal, Urine Ketones Negative, Urine Occult Blood 250 H, Urine Nitrite Negative, Urine Bilirubin Negative, Urine Urobilinogen Normal, Ur Leukocyte Esterase 500 H, Urine RBC 5-10 SEEN, Urine WBC 10-25 SEEN, Ur Squamous Epith Cells 0-5 SEEN, Ur Renal Epithelial Cell 0-5 SEEN, Urine Bacteria 3+, Urine Mucus 0 SEEN, Ur Random Sodium 36, Urine Creatinine 19.70 L 05/20/25 18:15: WBC 13.2 H, RBC 4.06 L, Hgb 11.1 L, Hct 37.2, MCV 91.6, MCH 27.3, MCHC 29.8 L, RDW Std Deviation 50.6 H, RDW Coeff of Chad 15.0 H, Plt Count 290, MPV 10.2, Immature Gran % (Auto) 0.500, Neut % (Auto) 78.6 H, Lymph % (Auto) 9.5 L, Ray % (Auto) 9.9, Eos % (Auto) 1.0, Baso % (Auto) 0.5, Absolute Neuts (auto) 10.4 H, Absolute Lymphs (auto) 1.25, Nucleated RBC % 0, Sodium 139, Potassium 6.0 H*, Chloride 97 L, Carbon Dioxide 25.2, Anion Gap 16 H, BUN 78 H, Creatinine 3.12 H, Est GFR (MDRD) Non-Af 19 L, BUN/Creatinine Ratio 25.1 H, Glucose 103 H, Calcium 9.3, Phosphorus 5.3 H, Magnesium 3.5 H 05/20/25 20:23: POC Glucose 96 05/20/25 21:07: Random Vancomycin 88.8 H 05/20/25 21:19: POC Glucose 254 H 05/21/25 00:05: Sodium 136, Potassium 5.1, Chloride 97 L, Carbon Dioxide 19.3 L, Anion Gap 19 H, BUN 75 H, Creatinine 3.12 H, Estim Creat Clear Calc 16.01 L, Est GFR (MDRD) Non-Af 19 L, BUN/Creatinine Ratio 23.9 H, Glucose 223 H, Calcium 8.8 05/21/25 02:05: Sodium Cancelled, Potassium Cancelled, Chloride Cancelled, Carbon Dioxide Cancelled, Anion Gap Cancelled, BUN Cancelled, Creatinine Cancelled, Estim Creat Clear Calc Cancelled, Est GFR (MDRD) Non-Af Cancelled, BUN/Creatinine Ratio Cancelled, Glucose Cancelled, Calcium Cancelled 05/21/25 04:20: WBC 11.6 H, RBC 3.83 L, Hgb 10.5 L, Hct 35.1 L, MCV 91.6, MCH 27.4, MCHC 29.9 L, RDW Std Deviation 51.1 H, RDW Coeff of Chad 15.1 H, Plt Count 218, MPV 11.2, Immature Gran % (Auto) 0.900, Neut % (Auto) 76.4 H, Lymph % (Auto) 9.6 L, Ray % (Auto) 12.2 H, Eos % (Auto) 0.5, Baso % (Auto) 0.4, Absolute Neuts (auto) 8.9 H, Absolute Lymphs (auto) 1.11, Nucleated RBC % 0, Sodium 141, Potassium 4.9, Chloride 102, Carbon Dioxide 24.6, Anion Gap 15, BUN 72 H, Creatinine 3.13 H, Estim Creat Clear Calc 15.96 L, Est GFR (MDRD) Non-Af 19 L, BUN/Creatinine Ratio 23.1 H, Glucose 83, Calcium 8.4, Total Bilirubin 0.17, AST 21, ALT 22, Alkaline Phosphatase 139 H, Total Protein 6.5, Albumin 3.3 L, Globulin 3.1, Albumin/Globulin Ratio 1.1 Micro: Microbiology 05/21/25 01:25 Nasal Secretion MRSA (PCR) - Final 05/21/25 00:20 Mucosa - Nasopharyngeal Respiratory Panel (PCR) - Final 05/20/25 22:17 Wound - Buttock Skin and Soft Tissue MRSA/MSSA (PCR - Final Rhythm Strip Rhythm Strip: Sinus Rhythm Rate: 97 Ectopy: None Imaging Radiology Impression Abdomen/Pelvis CT 05/20/25 19:39 IMPRESSION: Gastrointestinal findings to be correlated clinically are discussed above in detail. - Severe right-sided ischial decubitus ulcer contacting the bony cortex of the ischium. Osteomyelitis is suspected. - Multiple other findings and study limitations discussed above. Reading Location: [id number]
--- NOTE | 2025-05-21 12:32 | CASEMGMT ---
Addendum entered by Britany Petty 05/21/25 12:48: Social Work Cynthia John, pt's CM did call SW back. SW relayed concerns around pt's ulcers and care at home. Cynthia states they do follow up w/their clients in the home, SW explained will let her know when pt is being d/c, and asked if they can see pt once she returns home. Cynthia is going to speak w/her circus train supervisor. RUTH Armendariz Original Note: Social Work SW called the Board of DD in [facility] to see if pt has a community case manager([phone]). In speaking w/medical staff, there are concerns around pt's care at home. Pt does have a community case manager, Cynthia John. SW called Cynthia, message left for her to call this SW back. JUAN R ArmendarizS
--- NOTE | 2025-05-21 14:01 | CHAPLAIN ---
Type of Pastoral Visit _x__ Initial Visit ___ Follow-up Visit ___ On-call Visit ___ General Patient Visit ___ Spiritual Assessment ___ Family Conference ___ Bereavement ___ Rapid Response ___ Code Blue ___ Other (describe below) Pastoral Care Referral From ___ Patient _x__ Family ___ Nurse ___ Physician ___ Brush Polisher ___ Sort Line ___ Other (describe below) Sacrament/Intervention _x__ Active listening ___ Anointing ___ Confucianism ___ Bereavement ___ Communion _x__ Angelia exploration ___ _x__ Life review _x__ Prayer ___ Reconciliation ___ Sacrament of Sick _x__ Supportive presence ___ Wedding ___ Other (describe below) Pastoral Comments patient has multiple limitations; pt is sleeping and her mother states that she has always been nocturnal; pt was adopted by this woman who loves her deeply; mother gives very long story of her care for patient and for her history of foster parenting and taken in kids with special needs; pt never awakens during the conversation but mother gives long explanation of her involvement with special needs children and her angelia in God; pt's mother has strong opinions about life and angelia matters as she expresses them; pt's mother goes to a little Anab[employer]ist; prayer and presence welcomed
--- NOTE | 2025-05-21 14:29 | CASEMGMT ---
Addendum entered by Britany Petty 05/21/25 15:11: Social Work SW verified pt's O2, pt has 4L continuous through [employer], has a concentrator and portable tanks. RUTH Armendariz Original Note: Social Work SW met w/pt's mother in regard to prior level of function and anticipated discharge plan. PCP: Dr. Kelly Goode Specialists: Urology--Dr. Ohara, Neurology--Evelyn Serna and Dr. Glasgow, sees endocrinology also. 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 W[facility]--[facility] [place] Preferred Pharmacy: [facility] in [place] on [address] Insurance/Presciption Benefit: Medicaid Living Will/HPOA: Pt's mother is her guardian, Peg Daniel. Document on chart LNOK: mother, 2 siblings in the home. All have disabilities Living Arrangements/prior level of function: Pt lives w/mother and two siblings, all with disabilities in the home. Pt uses a wheelchair occasionally, also has a hospital bed. Pt requires total care. Pt's mother provides care, along w/aides from a [employer] called [email or web address]. As per Peg, they have 97 hours per week of care for pt and pt's two siblings. They use the track system to pick pt up to clean under her, she uses chucks. Pt gets sponge bathed. SW let pt's mother know did speak w/Cynthia John, pt's housing case manager with [employer] Pt states Cynthia John, though pt's mother does not want Cynthia as the CM, and has tried to fire her. She states that she is dramatic and makes a big deal out of everything. She declined to sign a consent for [employer] at this time. SW did let her know will call to at least let them know when pt is being discharged from the hospital, pt's mother is okay w/this. Transportation: Pt's mother has three vehicles that can transport vehicles. DME: [employer] lift, tracking system, hospital bed, wheelchair, Home O2 concentrator, 2LPM through [employer], peg tube supplies through [employer], Diapers and pullups through [employer]. Pt is on IV antibiotics at home, meds are through [facility]. HHC/SNF: No history of either PLAN: home. Pt's mother plans to take pt home. At this point pt's mother does not think she would need anything. However she would be open to a script for wound healing supplies. She has been using 2X2s with a butterfly bandage on her belly wound, she said the wound healing RN is trying a pediatric ostomy back for this. If the pediatric ostomy bag works for this wound she would need a script for this. SW will continue to follow, will let [facility] know when pt is d/c, will get script for wound care supplies as needed, will send new script for IV antibiotics to [facility] if the IV antibiotics change. RUTH Armendariz
--- NOTE | 2025-05-21 14:32 | PCM.CONS.GEN ---
Assessment & Plan Assessment/Plan (1) Quadriplegic infantile cerebral palsy: (2) DAE (acute kidney injury): (3) Osteomyelitis of pelvic region: PLAN: On vanc/zosyn for 6 week course, now complicated by DAE. Vanc trough was high. Holding vanc, changed to meropenem. Once vanc level comes down, plan will be to start iv dapto. Will follow, thank you HPI Consult Data Date of Consult: 05/21/25 HPI Narrative Reason for Consultation: DAE HPI Narrative: JOCELIN JOSEPH, is a 35 F with cerebral palsy, started on vanc/zosyn via picc about 3 weeks ago for chronic pelvic osteo. Developed decreased urine output, taken to ED 05/20. Wound has been improving per her mother. Admitted here with DAE and high vanc trough. Seen by neph. BRENDA unobtainable due to mental status [facility] Medical History GERD (gastroesophageal reflux disease) Allergic rhinitis Seizure disorder Chronic indwelling Myles catheter Decubitus ulcer of sacral area Decubitus ulcer of right buttock, stage 4 Malnutrition Anemia Celiac disease Quadriplegic infantile cerebral palsy Home Medications ?Medication ?Instructions ?Recorded ?Last Taken ?Type acetaminophen 325 mg tablet (Aphen) 325 mg PO Q6H PRN fever or pain 03/14/25 Unknown History albuterol (refill) 90 90 mcg inhalation PRN 03/14/25 Unknown History mcg/actuation aerosol inhaler baclofen 50 mcg/mL intrathecal 50 mcg intrathecal Q24H 03/14/25 Unknown History solution diazepam (Valtoco) 15 mg intranasal Q4H PRN seizure 03/14/25 Unknown History activity diazepam 2 mg tablet 2 mg PO DAILY 03/14/25 Unknown History fluconazole 100 mg tablet 100 mg PO Q72H 03/14/25 Unknown History (Diflucan) fluticasone propionate 50 2 spray intranasal DAILY PRN nasal 03/14/25 Unknown History mcg/actuation nasal congestion spray,suspension (Aller-Kenny) ibuprofen 200 mg tablet (IBU-200) 200 mg PO Q8H PRN fever or pain 03/14/25 Unknown History levetiracetam 100 mg/mL oral 1,500 mg PO Q12H 03/14/25 Unknown History solution loratadine 10 mg tablet 10 mg PO DAILY 03/14/25 Unknown History medroxyprogesterone 150 mg/mL 150 mg IM QMONTH 03/14/25 Unknown History intramuscular suspension (Depo-Provera) omeprazole 40 mg capsule,delayed 40 mg PO DAILY 03/14/25 Unknown History release polyethylene glycol 3350 17 17 g PO DAILY PRN constipation 03/14/25 Unknown History gram/dose oral powder (ClearLax) promethazine 12.5 mg rectal 12.5 mg NM Q6H PRN nausea 03/14/25 Unknown History suppository singular 10 mg G-tube DAILY 03/14/25 Unknown History tramadol 50 mg tablet 50 mg PO DAILY PRN pain 03/14/25 Unknown History lamotrigine 150 mg tablet 150 mg PO BID 05/20/25 Unknown History Allergy/AdvReac Type Severity Reaction Status Date / Time cefdinir Allergy Intermediate Fever and Verified 05/20/25 14:53 skin rash ciprofloxacin (From Cipro) Allergy Intermediate Rash Verified 05/20/25 14:53 Penicillins (PCN) AdvReac Blisters Verified 05/20/25 14:53 Family History adopted Surgical History S/P gastrostomy History of back surgery Status post insertion of intrathecal baclofen pump History of tonsillectomy and adenoidectomy S/P cholecystectomy Social History household members: family Smoking Status: Never smoker alcohol intake: never substance use type: does not use Physical Exam Const no apparent distress HEENT normocephalic and head/scalp atraumatic Eyes PERRL and EOMs intact bilaterally Neck supple and No nodes Resp normal air movement and clear to auscultation bilaterally Cardio regular rate and regular rhythm GI soft to palpation, non-tender and non-distended Extremity General Extremity: Negative for edema Skin Skin Narrative: no new rash. Pelvic wound bandaged Neuro CN's II-XII intact bilaterally Lab / Micro Data Attestation: I reviewed the patient's lab results. 05/21/25 04:20 05/21/25 04:20 Labs: Laboratory Results - last 24 hr 05/20/25 18:05: Urine Color Yellow, Urine Clarity Sl. Cloudy, Urine pH 6.5, Ur Specific [place] 1.010, Urine Protein 100 H, Urine Glucose (UA) Normal, Urine Ketones Negative, Urine Occult Blood 250 H, Urine Nitrite Negative, Urine Bilirubin Negative, Urine Urobilinogen Normal, Ur Leukocyte Esterase 500 H, Urine RBC 5-10 SEEN, Urine WBC 10-25 SEEN, Ur Squamous Epith Cells 0-5 SEEN, Ur Renal Epithelial Cell 0-5 SEEN, Urine Bacteria 3+, Urine Mucus 0 SEEN, Ur Random Sodium 36, Urine Creatinine 19.70 L 05/20/25 18:15: WBC 13.2 H, RBC 4.06 L, Hgb 11.1 L, Hct 37.2, MCV 91.6, MCH 27.3, MCHC 29.8 L, RDW Std Deviation 50.6 H, RDW Coeff of Chad 15.0 H, Plt Count 290, MPV 10.2, Immature Gran % (Auto) 0.500, Neut % (Auto) 78.6 H, Lymph % (Auto) 9.5 L, [place] % (Auto) 9.9, Eos % (Auto) 1.0, Baso % (Auto) 0.5, Absolute Neuts (auto) 10.4 H, Absolute Lymphs (auto) 1.25, Nucleated RBC % 0, Sodium 139, Potassium 6.0 H*, Chloride 97 L, Carbon Dioxide 25.2, Anion Gap 16 H, BUN 78 H, Creatinine 3.12 H, Est GFR (MDRD) Non-Af 19 L, BUN/Creatinine Ratio 25.1 H, Glucose 103 H, Calcium 9.3, Phosphorus 5.3 H, Magnesium 3.5 H 05/20/25 20:23: POC Glucose 96 05/20/25 21:07: Random Vancomycin 88.8 H 05/20/25 21:19: POC Glucose 254 H 05/21/25 00:05: Sodium 136, Potassium 5.1, Chloride 97 L, Carbon Dioxide 19.3 L, Anion Gap 19 H, BUN 75 H, Creatinine 3.12 H, Estim Creat Clear Calc 16.01 L, Est GFR (MDRD) Non-Af 19 L, BUN/Creatinine Ratio 23.9 H, Glucose 223 H, Calcium 8.8 05/21/25 02:05: Sodium Cancelled, Potassium Cancelled, Chloride Cancelled, Carbon Dioxide Cancelled, Anion Gap Cancelled, BUN Cancelled, Creatinine Cancelled, Estim Creat Clear Calc Cancelled, Est GFR (MDRD) Non-Af Cancelled, BUN/Creatinine Ratio Cancelled, Glucose Cancelled, Calcium Cancelled 05/21/25 04:20: WBC 11.6 H, RBC 3.83 L, Hgb 10.5 L, Hct 35.1 L, MCV 91.6, MCH 27.4, MCHC 29.9 L, RDW Std Deviation 51.1 H, RDW Coeff of Chad 15.1 H, Plt Count 218, MPV 11.2, Immature Gran % (Auto) 0.900, Neut % (Auto) 76.4 H, Lymph % (Auto) 9.6 L, [place] % (Auto) 12.2 H, Eos % (Auto) 0.5, Baso % (Auto) 0.4, Absolute Neuts (auto) 8.9 H, Absolute Lymphs (auto) 1.11, Nucleated RBC % 0, Sodium 141, Potassium 4.9, Chloride 102, Carbon Dioxide 24.6, Anion Gap 15, BUN 72 H, Creatinine 3.13 H, Estim Creat Clear Calc 15.96 L, Est GFR (MDRD) Non-Af 19 L, BUN/Creatinine Ratio 23.1 H, Glucose 83, Calcium 8.4, Total Bilirubin 0.17, AST 21, ALT 22, Alkaline Phosphatase 139 H, Total Protein 6.5, Albumin 3.3 L, Globulin 3.1, Albumin/Globulin Ratio 1.1 Micro: Microbiology 05/20/25 22:30 Ulcer, Decubitus - Buttock Wound Culture - Preliminary Gram negative juan pablo 05/21/25 01:25 Nasal Secretion MRSA (PCR) - Final 05/21/25 00:20 Mucosa - Nasopharyngeal Respiratory Panel (PCR) - Final 05/20/25 22:17 Wound - Buttock Skin and Soft Tissue MRSA/MSSA (PCR - Final Rhythm Strip Rhythm Strip: Sinus Rhythm Rate: 97 Ectopy: None Imaging Radiology Impression Abdomen/Pelvis CT 05/20/25 19:39 IMPRESSION: Gastrointestinal findings to be correlated clinically are discussed above in detail. - Severe right-sided ischial decubitus ulcer contacting the bony cortex of the ischium. Osteomyelitis is suspected. - Multiple other findings and study limitations discussed above. Reading Location: [id number]
--- NOTE | 2025-05-21 15:23 | WOUNDNOTE ---
wound photo: right buttock/sacrum
--- NOTE | 2025-05-21 18:31 | CON.PCM.SX_ITS ---
Assessment & Plan Assessment/Plan (1) Osteomyelitis of pelvic region: (2) Decubitus ulcer of ischial area: PLAN: Plan Pressure offloading bed ordered q 2hour turns with nursing Dakins wet-to-dry dressings twice daily to the right ischial wound. Agree with ID consultation. Continue to optimize nutrition for healing, especially in the setting of abdominal EC fistula (ostomy bag to protect skin/control and to check output/measure, placed by nursing this afternoon) Plastics will continue to follow HPI Consult Data Date of Consult: 05/21/25 HPI Narrative HPI Narrative: JOCELIN JOSEPH is a 35 F with quadriplegic cerebral palsy, fecal/urinary incontinence, and an enterocutaneous fistula for whom PSY is being consulted regarding a right ischial wound after being admitted for DAE after she was being treated with Vanc/zosyn via PICC (~3 weeks ago) for a positive culture from her wounds. Patient's mother present at bedside today. Reports home pressure offloading bed and excellent wound care/dressing changes. ID has been consulted and patient's BUN/Cr seems to have plateaued. She is making urine. No fevers/chilss. VS stable aside from low tachycardia (oscillating around 100), afebrile. [facility] Medical History GERD (gastroesophageal reflux disease) Allergic rhinitis Seizure disorder Chronic indwelling Myles catheter Decubitus ulcer of sacral area Decubitus ulcer of right buttock, stage 4 Malnutrition Anemia Celiac disease Quadriplegic infantile cerebral palsy Home Medications ?Medication ?Instructions ?Recorded ?Last Taken ?Type acetaminophen 325 mg tablet (Aphen) 325 mg PO Q6H PRN fever or pain 03/14/25 Unknown History albuterol (refill) 90 90 mcg inhalation PRN Unknown History mcg/actuation aerosol inhaler baclofen 50 mcg/mL intrathecal 50 mcg intrathecal Q24H 03/14/25 Unknown History solution diazepam (Valtoco) 15 mg intranasal Q4H PRN sei zure 03/14/25 Unknown History activity diazepam 2 mg tablet 2 mg PO DAILY 03/14/25 Unkno wn History fluconazole 100 mg tablet 100 mg PO Q72H 03/14/25 Unkn own History (Diflucan) fluticasone propionate 50 2 spray intranasal DAILY PRN nasal 03/14/25 Unknown History mcg/actuation nasal congestion spray,suspension (Aller-Kenny) ibuprofen 200 mg tablet (IBU-200) 200 mg PO Q8H PRN fe mabrella or pain 03/14/25 Unknown History levetiracetam 100 mg/mL oral 1,500 mg PO Q12H 03/14/25 Unknown History solution loratadine 10 mg tablet 10 mg PO DAILY 03/14/25 Unkn own History medroxyprogesterone 150 mg/mL 150 mg IM QMONTH 5 Unknown History intramuscular suspension (Depo-Provera) omeprazole 40 mg capsule,delayed 40 mg PO DAILY Unknown History release polyethylene glycol 3350 17 17 g PO DAILY PRN constipa tion 03/14/25 Unknown History gram/dose oral powder (ClearLax) promethazine 12.5 mg rectal 12.5 mg MI Q6H PRN nausea 03/14/25 Unknown History suppository singular 10 mg G-tube DAILY 03/14/25 Unknown History tramadol 50 mg tablet 50 mg PO DAILY PRN pain 02/27 02/21 Unknown History lamotrigine 150 mg tablet 150 mg PO BID 05/20/25 Unkno wn History Allergy/AdvReac Type Severity Reaction Status Date / Time cefdinir Allergy Intermediate Fever and Verified 05/20/25 14:53 skin rash ciprofloxacin (From Cipro) Allergy Intermediate Rash Verified 05/20/25 14:53 Penicillins (PCN) AdvReac Blisters Verified 05/20/25 14:53 Family History adopted Surgical History S/P gastrostomy History of back surgery Status post insertion of intrathecal baclofen pump History of tonsillectomy and adenoidectomy S/P cholecystectomy Social History household members: family Smoking Status: Never smoker alcohol intake: never substance use type: does not use Physical Exam Narrative Abdomen: G-tube in place. Right/central abdominal EC fistula. Wounds: Stage 4 right ischial ulcer, exposed bone but no induration or fluid collections (no signs of acute infection). Perineal area without induration on my exam (no clinical cellulitis). Significant stool burden. Urinary catheter in place and urine clear/yellow. Lab / Micro Data 05/21/25 04:20 05/21/25 04:20 Labs: Laboratory Results - last 24 hr 05/20/25 18:05: Urine Color Yellow, Urine Clarity Sl. Cloudy, Urine pH 6.5, Ur Specific [place] 1.010, Urine Protein 100 H, Urine Glucose (UA) Normal, Urine Ketones Negative, Urine Occult Blood 250 H, Urine Nitrite Negative, Urine Bilirubin Negative, Urine Urobilinogen Normal, Ur Leukocyte Esterase 500 H, Urine RBC 5-10 SEEN, Urine WBC 10-25 SEEN, Ur Squamous Epith Cells 0-5 SEEN, Ur Renal Epithelial Cell 0-5 SEEN, Urine Bacteria 3+, Urine Mucus 0 SEEN, Ur Random Sodium 36, Urine Creatinine 19.70 L 05/20/25 18:15: Sodium 139, Potassium 6.0 H*, Chloride 97 L, Carbon Dioxide 25.2, Anion Gap 16 H, BUN 78 H, Creatinine 3.12 H, Est GFR (MDRD) Non-Af 19 L, B UN/Creatinine Ratio 25.1 H, Glucose 103 H, Calcium 9.3, Phosphorus 5.3 H, M agnesium 3.5 H 05/20/25 20:23: POC Glucose 96 05/20/25 21:07: Random Vancomycin 88.8 H 05/20/25 21:19: POC Glucose 254 H 05/21/25 00:05: Sodium 136, Potassium 5.1, Chloride 97 L, Carbon Dioxide 19.3 L, Anion Gap 19 H, BUN 75 H, Creatinine 3.12 H, Estim Creat Clear Calc 16.01 L, Est GFR (MDRD) Non-Af 19 L, BUN/Creatinine Ratio 23.9 H, Glucose 223 H, Calcium 8.8 05/21/25 02:05: Sodium Cancelled, Potassium Cancelled, Chloride Cancelled, Carbon Dioxide Cancelled, Anion Gap Cancelled, BUN Cancelled, Creatinine Cancelled, Estim Creat Clear Calc Cancelled, Est GFR (MDRD) Non-Af Cancelled, BUN/Creatinine Ratio Cancelled, Glucose Cancelled, Calcium Cancelled 05/21/25 04:20: WBC 11.6 H, RBC 3.83 L, Hgb 10.5 L, Hct 35.1 L, MCV 91.6, MCH 27.4, MCHC 29.9 L, RDW Std Deviation 51.1 H, RDW Coeff of Chad 15.1 H, Plt Count 218, MPV 11.2, Immature Gran % (Auto) 0.900, Neut % (Auto) 76.4 H, Lymph % (Auto) 9.6 L, [place] % (Auto) 12.2 H, Eos % (Auto) 0.5, Baso % (Auto) 0.4, A bsolute Neuts (auto) 8.9 H, Absolute Lymphs (auto) 1.11, Nucleated RBC % 0, Sodium 141, Potassium 4.9, Chloride 102, Carbon Dioxide 24.6, Anion Gap 15, BUN 72 H, Creatinine 3.13 H, Estim Creat Clear Calc 15.96 L, Est GFR (MDRD) Non-Af 19 L, BUN/Creatinine Ratio 23.1 H, Glucose 83, Calcium 8.4, Total Bilirubin 0.17, AST 21, ALT 22, Alkaline Phosphatase 139 H, Total Protein 6.5, Albumin 3.3 L, Globulin 3.1, Albumin/Globulin Ratio 1.1 Micro: Microbiology 05/20/25 22:30 Ulcer, Decubitus - Buttock Wound Culture - Preliminary Gram negative juan pablo 05/21/25 01:25 Nasal Secretion MRSA (PCR) - Final 05/21/25 00:20 Mucosa - Nasopharyngeal Respiratory Panel (PCR) - Final 05/20/25 22:17 Wound - Buttock Skin and Soft Tissue MRSA/MSSA (PCR - Final Rhythm Strip Rhythm Strip: Sinus Rhythm Rate: 97 Ectopy: None Imaging Radiology Impression Abdomen/Pelvis CT 05/20/25 19:39 IMPRESSION: Gastrointestinal findings to be correlated clinically are discussed above in detail. - Severe right-sided ischial decubitus ulcer contacting the bony cortex of the ischium. Osteomyelitis is suspected. - Multiple other findings and study limitations discussed above. Reading Location: [id number] Charges/Coding Multi Select Codes Visit Charges Office Visit/Consults: 72503 IP Consult L2
[2025-05-21] MEDS: DAKIN'S SOL HALF STRENGTH (=0.25%) TOPICAL (20:58)
--- NOTE | 2025-05-21 22:15 | NURSING ---
Called [facility] support number regarding alarm sounding on bed code #3. States to have patient moved back to other bed and a central service technician will return our call.
--- NOTE | 2025-05-21 22:15 | NURSING ---
Pt transferred to specialty bed, but the bed consistently alarmed. Pt transferred back to regular bed.
[2025-05-22] VITALS (30 sets, daily range): BP systolic 108–170; BP diastolic 74–103; PULSE 71–119; RESP 15–23; TEMP 36.6–37.8; O2SAT 95–100; BMI 21.8
--- NOTE | 2025-05-22 00:30 | NURSING ---
Addendum entered by Aurora Tobias 05/22/25 05:00: Also notified that there is a broken polysomnograph tech arm on the one side of the module. [facility] staff state it is still ok to use and the module can be placed on the floor. The polysomnograph tech arm will be replaced once no longer in service and returned to company. Original Note: Received return call from [employer] general maintenance technician regarding bed alarming. Community Outreach Manager states to not apply a fitted sheet to the bed and make sure the bed is fully extended. Placed a flat sheet to bed. Informed staff that general maintenance technician states the bed should be ok to use and pt can be moved into the bed as long as it no longer alarms. Discussed with primary RN. Pt is resting quietly at this time they will move the patient back into the bed before morning.
[2025-05-22 01:22] LABS: Allen Test Positive; Base Excess -1 mmol/L (-2 to +2); FI02 50.0; PO2 96 mmHG (75-100); SITE R Radial; SO2 93 % (95-99); Time Given 01:18:27
--- NOTE | 2025-05-22 01:30 | NURSING ---
Pt report called to TAMMY Huerta in ICU.
[2025-05-22] MEDS: 0.9% Saline Lock 10 ML Syringe IV ×3 (01:41→09:14)
--- NOTE | 2025-05-22 01:49 | NURSING ---
Attempted to call Mother of patient multiple times for update, but unable to reach.
--- NOTE | 2025-05-22 02:27 | PCM.PN.HOSP ---
Reason for Visit Chief Complaint: Respiratory failure Subjective Subjective Called to floor evaluate patient in acute respiratory failure. Patient was tachypneic and ABG showed CO2 retention of 102 with a pH of 7.07. Per decision on myself and respiratory therapy patient was transferred to intensive care unit for further advanced airway management. Objective Data Objective Data Vital Signs: Vital Signs Temp Pulse Resp BP Pulse Ox O2 Del Method O2 Flow Rate 97.8 F 112 H 17 148/92 H 98 Nasal Cannula 2 05/22/25 00:01 05/22/25 00:01 05/22/25 00:01 05/22/25 00:01 05/22/25 00:01 05/22/25 00:01 05/22/25 00:01 Oxygen Flow Rate (L/min) 2 Oxygen Delivery Method Nasal Cannula Weight: 88 lb 13.541 oz Body Mass Index (BMI) 21.4 Intake & Output: Intake and Output for Last 24 Hours 05/20/25 05/21/25 05/22/25 23:59 23:59 23:59 Intake Total 750 / 750 2477.00 / 2477.00 Output Total 600 / 720 120 / 120 Balance 750 / 750 1877.00 / 1757.00 -120 / -120 Lab / Micro Data 05/21/25 04:20 05/21/25 04:20 Labs: Laboratory Results - last 24 hr 05/21/25 02:05: Sodium Cancelled, Potassium Cancelled, Chloride Cancelled, Carbon Dioxide Cancelled, Anion Gap Cancelled, BUN Cancelled, Creatinine Cancelled, Estim Creat Clear Calc Cancelled, Est GFR (MDRD) Non-Af Cancelled, BUN/Creatinine Ratio Cancelled, Glucose Cancelled, Calcium Cancelled 05/21/25 04:20: WBC 11.6 H, RBC 3.83 L, Hgb 10.5 L, Hct 35.1 L, MCV 91.6, MCH 27.4, MCHC 29.9 L, RDW Std Deviation 51.1 H, RDW Coeff of Chad 15.1 H, Plt Count 218, MPV 11.2, Immature Gran % (Auto) 0.900, Neut % (Auto) 76.4 H, Lymph % (Auto) 9.6 L, [place] % (Auto) 12.2 H, Eos % (Auto) 0.5, Baso % (Auto) 0.4, Absolute Neuts (auto) 8.9 H, Absolute Lymphs (auto) 1.11, Nucleated RBC % 0, Sodium 141, Potassium 4.9, Chloride 102, Carbon Dioxide 24.6, Anion Gap 15, BUN 72 H, Creatinine 3.13 H, Estim Creat Clear Calc 15.96 L, Est GFR (MDRD) Non-Af 19 L, BUN/Creatinine Ratio 23.1 H, Glucose 83, Calcium 8.4, Total Bilirubin 0.17, AST 21, ALT 22, Alkaline Phosphatase 139 H, Total Protein 6.5, Albumin 3.3 L, Globulin 3.1, Albumin/Globulin Ratio 1.1 Micro: Microbiology 05/20/25 22:30 Ulcer, Decubitus - Buttock Wound Culture - Preliminary Gram negative juan pablo 05/21/25 01:25 Nasal Secretion MRSA (PCR) - Final 05/21/25 00:20 Mucosa - Nasopharyngeal Respiratory Panel (PCR) - Final 05/20/25 22:17 Wound - Buttock Skin and Soft Tissue MRSA/MSSA (PCR - Final ABG Data ABG results: ABG 05/22/25 01:15 Specimen Type ART Sample Site R Radial pH 7.07 L* Bicarbonate Actual 29.6 H Total CO2 33 Base Excess -1 O2 Saturation 93 L O2 % 50.0 ABG pCO2 102.4 H* ABG pO2 96 Toi Test Positive O2 Delivery Device Venti Mask Vent Mode Not entered Crit Call To/Read Back Yes Blood Gas Notified Whom Dr. Zee Blood Gas Notified Time 01:18:27 Rhythm Strip Rhythm Strip: Sinus Rhythm Rate: 97 Ectopy: None Physical Exam Const Constitutional Narrative: Nonverbal nonresponsive Resp Resp Narrative: Diminished breath sounds bilaterally Cardio regular rhythm, S1 normal heart sound and S2 normal heart sound Neuro Neuro Narrative: Opens eyes spontaneously but does not respond to verbal stimuli Assessment & Plan Assessment/Plan (1) Acute respiratory failure: PLAN: Plan Acute respiratory failure?attempt to intubate. Patient was hyperventilated and SpO2 was 100% and attempted to intubate using glide a scope twice the first with a 7.5 ET tube however, due to abnormal anatomy of her neck visualization of the cords was difficult to obtain with camera. When I visualized the cords I advanced the tube but the visual field(camera) became obstructed by secretions and had to discontinue both attempts with the glide a scope. Patient was then ventilated using BiPAP back to 100% SpO2 and then I reattempted to intubate using a 3.0 Roman laryngoscope. This attempt was also unsuccessful. Patient became more alert following this attempt and began breathing on her own therefore decision made to continue BiPAP therapy to and maintain that course as patient's airway was now stable. Will check ABGs and decide if further attempt at intubation is necessary. Consult for order management specialist ordered.
--- NOTE | 2025-05-22 02:42 | NURSING ---
Patient transferred from PCU d/t increasing lethargy and acidosis on blood gas. Dr. Zee at bedside, decision made to intubate. 10 mg etomidate and 100 mg succinylcholine given IVP per MD order. Unable to intubate after several attempts d/t difficult airway anatom, patient oxygenated with bipap between attempts. Patient starting to wake up and spontaneously breathe, so Dr. Zee wanted to see if we can just keep her on the bipap for now and repeat an ABG to see if it is improving.
[2025-05-22 02:57] LABS: Allen Test Positive; Base Excess -1 mmol/L (-2 to +2); Comment 22/7 cmH2O; FI02 45.0; PO2 137 mmHG (75-100); SITE L Radial; SO2 98 % (95-99); Time Given 02:55:18
--- NOTE | 2025-05-22 04:49 | CPS ---
INTUBATION WAS ATTEMPTED X4. DUE TO PT ANATOMY MD AND RT ALONG WITH RN'S AGREED IT WAS IN PT BEST INTEREST TO STAY ON BIPAP. 2ND ABG WAS DRAWN TO ASSURE PT IMPROVEMENT. WILL CONTINUE TO MONITOR CLOSELY IN ICU.
[2025-05-22 05:23] LABS: Hematocrit 35.1 % (37-47); Hemoglobin 10.4 g/dL (12.0-15.0); Immature Granulocytes Count 0.440 X10^3/uL (0.0-0.0); Mean Corp Hgb Conc 29.6 g/dL (32-36); Mean Corpuscular Volume 93.1 fL (81-99); Mean Platelet Vol. 10.4 fl (6.2-12.0); NRBC Flagged by Analyzer 0 % (0-5); Platelet Count 276 K/mm3 (150-450); RBC Distribution Width CV 15.4 % (11.6-14.6); RBC Distribution Width SD 52.8 fl (35.1-43.9); Red Blood Count 3.77 M/mm3 (4.2-5.4); White Blood Count 12.8 K/mm3 (4.4-11.0)
[2025-05-22 05:43] LABS: Anion Gap 17 (5-15); BUN 77 mg/dL (4-19); BUN/Creat Ratio 18.1 RATIO (10-20); Calcium,Total 8.1 mg/dL (7.6-11.0); Carbon Dioxide 24.6 mmol/L (21.0-32.0); Chloride 107 mmol/L (98-108); Estimated Creatinine Clearance 11.93 ml/min (50-250); Glucose 175 mg/dL (70-99); Potassium 3.8 mmol/L (3.3-5.1)
[2025-05-22 05:51] LABS: Vancomycin, Random Level 61.4 ug/mL (0.0-15.0)
--- NOTE | 2025-05-22 06:32 | PCM.RX.CS ---
Consult Antibiotic Management Pharmacy has been consulted to manage selected antibiotic: Vancomycin Type of Intervention Type of Consult: Follow-up Suspected Infection Suspected Infection: Osteomyelitis Prior Doses of Antibiotics Prior Doses of Antibiotics Received/Current Regimen: No doses given at this institution Labs Labs: Sodium 148 mmol/L (133-145) H 05/22/25 05:05 Potassium 3.8 mmol/L (3.3-5.1) 05/22/25 05:05 Chloride 107 mmol/L (98-108) 05/22/25 05:05 Carbon Dioxide 24.6 mmol/L (21.0-32.0) 05/22/25 05:05 Anion Gap 17 (5-15) H 05/22/25 05:05 BUN 77 mg/dL (4-19) H 05/22/25 05:05 Creatinine 4.26 mg/dL (0.70-1.20) H 05/22/25 05:05 Est GFR (MDRD) Non-Af 13 (>60) L 05/22/25 05:05 BUN/Creatinine Ratio 18.1 RATIO (10-20) 05/22/25 05:05 Glucose 175 mg/dL (70-99) H 05/22/25 05:05 Random Vancomycin 61.4 ug/mL (0.0-15.0) H 05/22/25 05:05 Microbiology Microbiology: Microbiology 05/20/25 22:30 Ulcer, Decubitus - Buttock Wound Culture - Preliminary Gram negative juan pablo 05/21/25 01:25 Nasal Secretion MRSA (PCR) - Final 05/21/25 00:20 Mucosa - Nasopharyngeal Respiratory Panel (PCR) - Final 05/20/25 22:17 Wound - Buttock Skin and Soft Tissue MRSA/MSSA (PCR - Final Dosing Weight Weight used for dosin kg Estimated Creatinine Clearance Estimated Creatinine Clearance: ~ 12 Goal Trough Goal Trough: 15-20 mcg/mL Pharmacy Plan for Drug Dosing Pharmacy Plan for Drug Dosing: Vancomycin random level = 61.4, continue to hold vancomycin. Random level will be drawn in 2 days. See infectious disease provider note regarding possible change to IV daptomycin after trough reduced. Pharmacy Service will continue to monitor and adjust dosing as required. Follow-Up Labs Follow-Up Labs: Trough: Vancomycin Date/Time Labs Ordered Labs to be done on [date and time ordered]: 05/22/25 @ 0600
[2025-05-22] MEDS: CHLORHEXIDINE GLUC 2% CLOTH 1 EACH TOWELETTE TOPICAL (06:44)
--- NOTE | 2025-05-22 06:53 | PCM.PN.HOSP ---
Reason for Visit Chief Complaint: Respiratory failure Objective Data Objective Data Vital Signs: Vital Signs Temp Pulse Resp BP Pulse Ox O2 Del Method O2 Flow Rate 98.5 F 90 20 H 118/79 100 Bi-pap 2 05/22/25 06:00 05/22/25 06:00 05/22/25 06:00 05/22/25 06:00 05/22/25 06:00 05/22/25 06:00 05/22/25 00:01 FiO2 35 05/22/25 06:00 Oxygen Flow Rate (L/min) 2 Oxygen Delivery Method Bi-pap Weight: 41.005 kg Body Mass Index (BMI) 21.8 Intake & Output: Intake and Output for Last 24 Hours 05/20/25 05/21/25 05/22/25 23:59 23:59 23:59 Intake Total 750 / 750 2507.00 / 2507.00 Output Total 600 / 720 140 / 140 Balance 750 / 750 1907.00 / 1787.00 -140 / -140 Lab / Micro Data 05/22/25 05:05 05/22/25 05:05 Labs: Laboratory Results - last 24 hr 05/22/25 05:05: WBC 12.8 H, RBC 3.77 L, Hgb 10.4 L, Hct 35.1 L, MCV 93.1, MCH 27.6, MCHC 29.6 L, RDW Std Deviation 52.8 H, RDW Coeff of Chad 15.4 H, Plt Count 276, MPV 10.4, Immature Gran % (Auto) 3.400 H, Neut % (Auto) 78.9 H, Lymph % (Auto) 5.3 L, [place] % (Auto) 11.1 H, Eos % (Auto) 0.5, Baso % (Auto) 0.8, Absolute Neuts (auto) 10.1 H, Absolute Lymphs (auto) 0.68 L, Nucleated RBC % 0, Sodium 148 H, Potassium 3.8, Chloride 107, Carbon Dioxide 24.6, Anion Gap 17 H, BUN 77 H, Creatinine 4.26 H, Estim Creat Clear Calc 11.93 L, Est GFR (MDRD) Non-Af 13 L, BUN/Creatinine Ratio 18.1, Glucose 175 H, Calcium 8.1, Random Vancomycin 61.4 H Micro: Microbiology 05/20/25 22:30 Ulcer, Decubitus - Buttock Wound Culture - Preliminary Gram negative juan pablo 05/21/25 01:25 Nasal Secretion MRSA (PCR) - Final 05/21/25 00:20 Mucosa - Nasopharyngeal Respiratory Panel (PCR) - Final 05/20/25 22:17 Wound - Buttock Skin and Soft Tissue MRSA/MSSA (PCR - Final ABG Data ABG results: ABG 05/22/25 05/22/25 01:15 02:53 Specimen Type ART ART Sample Site R Radial L Radial pH 7.07 L* 7.13 L* Bicarbonate Actual 29.6 H 28.6 H Total CO2 33 31 Base Excess -1 -1 O2 Saturation 93 L 98 O2 % 50.0 45.0 ABG pCO2 102.4 H* 86.5 H* ABG pO2 96 137 H Toi Test Positive Positive O2 Delivery Device Venti Mask BiPAP Vent Mode Not entered Not entered Crit Call To/Read Back Yes Yes Blood Gas Notified Whom Dr. Saadia Salmon Blood Gas Notified Time 01:18:27 02:55:18 Clinical Comments 22/7 cmH2O Rhythm Strip Rhythm Strip: Sinus Rhythm Rate: 97 Ectopy: None
--- NOTE | 2025-05-22 07:10 | RAD_ITS ---
PROCEDURE: CHEST 1 VIEW (PORTABLE) 05/22/2025 REASON FOR EXAM: HYPOXIA TECHNIQUE: 2 oblique views of the chest. COMPARISON: None FINDINGS: Hardware is noted in the thoracic and lumbar region. Heart size appears enlarged. Infiltrate throughout the left lung is not excluded. There is no definite effusion. There is no visible pneumothorax. There is no acute bony abnormality. Surgical clips are noted. RAD/Chest 1 View (Portable) IMPRESSION: Infiltrate throughout the left lung is not excluded. Reading Location: [facility]
[2025-05-22 07:17] LABS: Allen Test Positive; Base Excess 3 mmol/L (-2 to +2); Comment 22/7; FI02 35.0; PO2 88 mmHG (75-100); RR 20; SITE R Radial; SO2 94 % (95-99); Time Given 07:15:03
[2025-05-22 07:35] LABS: Pro- Brain NATRIURETIC PEPTIDE 4474 pg/mL (<=450)
--- NOTE | 2025-05-22 07:56 | CON.PCM.CC_ITS ---
HPI Consult Data Date of Consult: 05/22/25 HPI Narrative HPI Narrative: JOCELIN JOSEPH, is a 35 F who [facility] Medical History GERD (gastroesophageal reflux disease) Allergic rhinitis Seizure disorder Chronic indwelling Myles catheter Decubitus ulcer of sacral area Decubitus ulcer of right buttock, stage 4 Malnutrition Anemia Celiac disease Quadriplegic infantile cerebral palsy Home Medications ?Medication ?Instructions ?Recorded ?Last Taken ?Type acetaminophen 325 mg tablet (Aphen) 325 mg PO Q6H PRN fever or pain 03/14/25 Unknown History albuterol (refill) 90 90 mcg inhalation PRN Unknown History mcg/actuation aerosol inhaler baclofen 50 mcg/mL intrathecal 50 mcg intrathecal Q24H 03/14/25 Unknown History solution diazepam (Valtoco) 15 mg intranasal Q4H PRN sei zure 03/14/25 Unknown History activity diazepam 2 mg tablet 2 mg PO DAILY 03/14/25 Unkno wn History fluconazole 100 mg tablet 100 mg PO Q72H 03/14/25 Unkn own History (Diflucan) fluticasone propionate 50 2 spray intranasal DAILY PRN nasal 03/14/25 Unknown History mcg/actuation nasal congestion spray,suspension (Aller-Kenny) ibuprofen 200 mg tablet (IBU-200) 200 mg PO Q8H PRN fe marbella or pain 03/14/25 Unknown History levetiracetam 100 mg/mL oral 1,500 mg PO Q12H 03/14/25 Unknown History solution loratadine 10 mg tablet 10 mg PO DAILY 03/14/25 Unkn own History medroxyprogesterone 150 mg/mL 150 mg IM QMONTH 5 Unknown History intramuscular suspension (Depo-Provera) omeprazole 40 mg capsule,delayed 40 mg PO DAILY Unknown History release polyethylene glycol 3350 17 17 g PO DAILY PRN constipa tion 03/14/25 Unknown History gram/dose oral powder (ClearLax) promethazine 12.5 mg rectal 12.5 mg HI Q6H PRN nausea 03/14/25 Unknown History suppository singular 10 mg G-tube DAILY 03/14/25 Unknown History tramadol 50 mg tablet 50 mg PO DAILY PRN pain 02/27 02/21 Unknown History lamotrigine 150 mg tablet 150 mg PO BID 05/20/25 Unkno wn History Allergy/AdvReac Type Severity Reaction Status Date / Time cefdinir Allergy Intermediate Fever and Verified 05/20/25 14:53 skin rash ciprofloxacin (From Cipro) Allergy Intermediate Rash Verified 05/20/25 14:53 Penicillins (PCN) AdvReac Blisters Verified 05/20/25 14:53 Family History adopted Surgical History S/P gastrostomy History of back surgery Status post insertion of intrathecal baclofen pump History of tonsillectomy and adenoidectomy S/P cholecystectomy Social History household members: family Smoking Status: Never smoker alcohol intake: never substance use type: does not use Lab / Micro Data 05/22/25 05:05 05/22/25 05:05 Labs: Laboratory Results - last 24 hr 05/22/25 05:05: WBC 12.8 H, RBC 3.77 L, Hgb 10.4 L, Hct 35.1 L, MCV 93.1, MCH 27.6, MCHC 29.6 L, RDW Std Deviation 52.8 H, RDW Coeff of Chad 15.4 H, Plt Count 276, MPV 10.4, Immature Gran % (Auto) 3.400 H, Neut % (Auto) 78.9 H, Lymph % (Auto) 5.3 L, [place] % (Auto) 11.1 H, Eos % (Auto) 0.5, Baso % (Auto) 0.8, A bsolute Neuts (auto) 10.1 H, Absolute Lymphs (auto) 0.68 L, Nucleated RBC % 0, S odium 148 H, Potassium 3.8, Chloride 107, Carbon Dioxide 24.6, Anion Gap 17 H, B UN 77 H, Creatinine 4.26 H, Estim Creat Clear Calc 11.93 L, Est GFR (MDRD) Non- Af 13 L, BUN/Creatinine Ratio 18.1, Glucose 175 H, Calcium 8.1, NT pro BNP II 4474 H, Random Vancomycin 61.4 H Micro: Microbiology 05/20/25 22:30 Ulcer, Decubitus - Buttock Wound Culture - Preliminary Gram negative juan pablo 05/21/25 01:25 Nasal Secretion MRSA (PCR) - Final 05/21/25 00:20 Mucosa - Nasopharyngeal Respiratory Panel (PCR) - Final ABG Data ABG results: ABG 05/22/25 05/22/25 05/22/25 01:15 02:53 07:13 Specimen Type ART ART ART Sample Site R Radial L Radial R Radial pH 7.07 L* 7.13 L* 7.20 L Bicarbonate Actual 29.6 H 28.6 H 30.8 H Total CO2 33 31 33 Base Excess -1 -1 3 H O2 Saturation 93 L 98 94 L O2 % 50.0 45.0 35.0 ABG pCO2 102.4 H* 86.5 H* 79.4 H* ABG pO2 96 137 H 88 Toi Test Positive Positive Positive Respiration Rate 20 O2 Delivery Device Venti Mask BiPAP BiPAP Vent Mode Not entered Not entered AC Crit Call To/Read Back Yes Yes Yes Blood Gas Notified Whom Dr. Saadia koch Blood Gas Notified Time 01:18:27 02:55:18 07:15:03 Clinical Comments 22/7 cmH2O 20/03 Rhythm Strip Rhythm Strip: Sinus Rhythm Rate: 97 Ectopy: None Imaging Radiology Impression Chest X-Ray 05/22/25 07:10 IMPRESSION: Infiltrate throughout the left lung is not excluded. Reading Location: [facility]
--- NOTE | 2025-05-22 07:56 | EX.PCM.CONCC ---
Assessment & Plan Assessment/Plan (1) Acute respiratory failure: PLAN: Plan RECOMMENDATIONS: 1. Antimicrobials per ID recommendations. 2. Continue BiPAP therapy with breaks, as tolerated. 3. Initiate trophic tube feeding. 4. Will need to monitor for tube feed output from the patient's fistula tract, as this will require additional workup. 5. Continue appropriate DVT prophylaxis. 6. Recommend ongoing goals of care discussion with the patient's POA. IMPRESSIONS: 1. Acute combined respiratory failure Unclear precipitating etiology. However, I do suspect that it is likely the consequence of the patient's restrictive lung mechanics secondary to extensive kyphoscoliosis coupled with increased metabolic demand in the setting of her current hospitalization and inability to appropriately compensate. In addition, poor clearance of multiple medications in the setting of DAE is also likely contributing. While there was an initial attempt to intubate the patient, this was unsuccessful. The patient's acid-base status has improved with noninvasive positive pressure ventilatory support, which will be continued for now. The patient can be given breaks from PAP therapy as tolerated. ABGs will be monitored on an as needed basis. 2. Acute kidney injury Presumably secondary to ATN, with vancomycin toxicity contributing. Continue current supportive care per nephrology recommendations. No current indication for renal replacement therapy. 3. Chronic sacral ulcers/osteomyelitis Continue antimicrobial therapy per ID recommendations. 4. History of quadriplegic cerebral palsy with severe malnutrition/anemia/GERD Complicates care, management, recovery and prognosis. Continue supportive measures as noted above. The patient was noted to have a fistula track at the prior site of her feeding tube. We are going to resume her tube feeding at low rate and monitor for output from the fistula tract. My concern is that the fistula tract may be impairing the patient's ability to achieve appropriate nutrition and therapeutic levels of medications. In the interim, her Keppra will be transition to IV route. This note was generated with [employer] dictation software. It may contain incorrect words, spelling, and punctuation that were not noted in checking the note before signing. HPI Consult Data Date of Consult: 05/22/25 HPI Narrative Reason for Consultation: Respiratory failure HPI Narrative: The patient is a 35-year-old female, with a history as outlined below, who presented to the emergency department on May 20 with decreased urine output. The patient has a complex medical history including quadriplegic cerebral palsy with chronic sacral decubitus ulcers on outpatient antimicrobial therapy, underlying epilepsy, chronic indwelling Myles catheter and anemia. The patient had been started on vancomycin and Zosyn via a PICC line approximately 3 weeks ago for chronic pelvic osteomyelitis. Her healthcare provider noted decreased urine output, for which she was brought to the emergency department for evaluation. On presentation to the emergency department, the patient was documented to be afebrile and hemodynamically stable. She was initially maintaining appropriate oxygen saturations on 2 L/min via nasal cannula. Laboratory evaluation revealed a white blood cell count of 13,000. Hemoglobin and platelet count were stable. Initial chemistry profile was notable for a potassium of 6.0 with an anion gap of 16, BUN of 78 and creatinine of 3.12. Urine analysis was positive for leukocyte esterase and 3+ urine bacteria. The patient's vancomycin random level was elevated at 88. The patient was ultimately ordered to receive IV fluid resuscitation and was admitted to the hospital for further management. The patient was maintained on antimicrobial therapy given her history of chronic osteomyelitis and concern for acute complicated urinary tract infection. The patient has been seen in consultation by nephrology, palliative care medicine and infectious diseases. The patient is currently documented to be overall net +2.6 L for the hospitalization. Last night, the patient apparently developed worsening respiratory failure, with an ABG demonstrating acute CO2 retention. The patient was ultimately transferred to the medical intensive care unit by the overnight provider an attempt was made to intubate the patient, which was largely unsuccessful. Therefore, the patient was placed on BiPAP therapy, with subsequent improvement in her acid-base status. The patient's most recent arterial blood gas from this morning demonstrated a pH of 7.2 with a pCO2 of 80 and pO2 of 88. The patient's chest x-ray is largely uninterpretable, given the extensive kyphoscoliosis noted. [facility] Medical History GERD (gastroesophageal reflux disease) Allergic rhinitis Seizure disorder Chronic indwelling Myles catheter Decubitus ulcer of sacral area Decubitus ulcer of right buttock, stage 4 Malnutrition Anemia Celiac disease Quadriplegic infantile cerebral palsy Home Medications ?Medication ?Instructions ?Recorded ?Last Taken ?Type acetaminophen 325 mg tablet (Aphen) 325 mg PO Q6H PRN fever or pain 03/14/25 Unknown History albuterol (refill) 90 90 mcg inhalation PRN 03/14/25 Unknown History mcg/actuation aerosol inhaler baclofen 50 mcg/mL intrathecal 50 mcg intrathecal Q24H 03/14/25 Unknown History solution diazepam (Valtoco) 15 mg intranasal Q4H PRN seizure 03/14/25 Unknown History activity diazepam 2 mg tablet 2 mg PO DAILY 03/14/25 Unknown History fluconazole 100 mg tablet 100 mg PO Q72H 03/14/25 Unknown History (Diflucan) fluticasone propionate 50 2 spray intranasal DAILY PRN nasal 03/14/25 Unknown History mcg/actuation nasal congestion spray,suspension (Aller-Kenny) ibuprofen 200 mg tablet (IBU-200) 200 mg PO Q8H PRN fever or pain 03/14/25 Unknown History levetiracetam 100 mg/mL oral 1,500 mg PO Q12H 03/14/25 Unknown History solution loratadine 10 mg tablet 10 mg PO DAILY 03/14/25 Unknown History medroxyprogesterone 150 mg/mL 150 mg IM QMONTH 03/14/25 Unknown History intramuscular suspension (Depo-Provera) omeprazole 40 mg capsule,delayed 40 mg PO DAILY 03/14/25 Unknown History release polyethylene glycol 3350 17 17 g PO DAILY PRN constipation 03/14/25 Unknown History gram/dose oral powder (ClearLax) promethazine 12.5 mg rectal 12.5 mg MA Q6H PRN nausea 03/14/25 Unknown History suppository singular 10 mg G-tube DAILY 03/14/25 Unknown History tramadol 50 mg tablet 50 mg PO DAILY PRN pain 03/14/25 Unknown History lamotrigine 150 mg tablet 150 mg PO BID 05/20/25 Unknown History Allergy/AdvReac Type Severity Reaction Status Date / Time cefdinir Allergy Intermediate Fever and Verified 05/20/25 14:53 skin rash ciprofloxacin (From Cipro) Allergy Intermediate Rash Verified 05/20/25 14:53 Penicillins (PCN) AdvReac Blisters Verified 05/20/25 14:53 Family History adopted Surgical History S/P gastrostomy History of back surgery Status post insertion of intrathecal baclofen pump History of tonsillectomy and adenoidectomy S/P cholecystectomy Social History household members: family Smoking Status: Never smoker alcohol intake: never substance use type: does not use ROS Review of Systems ROS Unobtainable: due to mental status Physical Exam Const Constitutional Narrative: The patient is currently nonverbal and periodically moaning. HEENT normocephalic and head/scalp atraumatic Neck supple Resp Effort and Inspection: tachypneic Auscultation: diminished lung sounds Cardio regular rate and regular rhythm GI soft to palpation GI Narrative: PEG tube in place. There was also evidence of a fistula track in close proximity to her PEG tube. Extremity Extremity Narrative: Contracted extremities without clubbing or cyanosis. Skin Skin Narrative: Sacral decubitus ulcer present on admission Neuro Neuro Narrative: Baseline quadriplegia Lab / Micro Data 05/22/25 05:05 05/22/25 05:05 Labs: Laboratory Results - last 24 hr 05/22/25 05:05: WBC 12.8 H, RBC 3.77 L, Hgb 10.4 L, Hct 35.1 L, MCV 93.1, MCH 27.6, MCHC 29.6 L, RDW Std Deviation 52.8 H, RDW Coeff of Chad 15.4 H, Plt Count 276, MPV 10.4, Immature Gran % (Auto) 3.400 H, Neut % (Auto) 78.9 H, Lymph % (Auto) 5.3 L, [place] % (Auto) 11.1 H, Eos % (Auto) 0.5, Baso % (Auto) 0.8, Absolute Neuts (auto) 10.1 H, Absolute Lymphs (auto) 0.68 L, Nucleated RBC % 0, Sodium 148 H, Potassium 3.8, Chloride 107, Carbon Dioxide 24.6, Anion Gap 17 H, BUN 77 H, Creatinine 4.26 H, Estim Creat Clear Calc 11.93 L, Est GFR (MDRD) Non-Af 13 L, BUN/Creatinine Ratio 18.1, Glucose 175 H, Calcium 8.1, NT pro BNP II 4474 H, Random Vancomycin 61.4 H Micro: Microbiology 05/20/25 22:30 Ulcer, Decubitus - Buttock Wound Culture - Preliminary Gram negative juan pablo 05/21/25 01:25 Nasal Secretion MRSA (PCR) - Final 05/21/25 00:20 Mucosa - Nasopharyngeal Respiratory Panel (PCR) - Final ABG Data ABG results: ABG 05/22/25 05/22/25 05/22/25 01:15 02:53 07:13 Specimen Type ART ART ART Sample Site R Radial L Radial R Radial pH 7.07 L* 7.13 L* 7.20 L Bicarbonate Actual 29.6 H 28.6 H 30.8 H Total CO2 33 31 33 Base Excess -1 -1 3 H O2 Saturation 93 L 98 94 L O2 % 50.0 45.0 35.0 ABG pCO2 102.4 H* 86.5 H* 79.4 H* ABG pO2 96 137 H 88 Toi Test Positive Positive Positive Respiration Rate 20 O2 Delivery Device Venti Mask BiPAP BiPAP Vent Mode Not entered Not entered AC Crit Call To/Read Back Yes Yes Yes Blood Gas Notified Whom Dr. Saadia koch Blood Gas Notified Time 01:18:27 02:55:18 07:15:03 Clinical Comments 22/7 cmH2O 22/7 Rhythm Strip Rhythm Strip: Sinus Rhythm Rate: 97 Ectopy: None Imaging Radiology Impression Chest X-Ray 05/22/25 07:10 IMPRESSION: Infiltrate throughout the left lung is not excluded. Reading Location: [facility] Charges/Coding Visit Charges Inpatient E&M: 69032 Init Hosp L3
[2025-05-22] MEDS: DAKIN'S SOL HALF STRENGTH (=0.25%) TOPICAL (07:58)
--- NOTE | 2025-05-22 09:52 | NURSING ---
DR koch at bedside, requesting bipap removal. bipap removed @0750. @0757 pt HR up to 120s, pt moaning, sats to 82%, bipap placed back on and pt recovered within a mins.
[2025-05-22] MEDS: 0.9% Normal Saline (250mL Bag) 250 ML 15 ML IV ×2 (09:59→10:34)
--- NOTE | 2025-05-22 10:04 | WOUNDNOTE ---
Pt had been transferred to ICU overnight. pt is currently resting in bed on Bipap. pt is on low air loss mattress. will assess wounds with Dr Ruiz.
[2025-05-22] MEDS: Pantoprazole Sodium 40 MG in 0.9% Normal Saline (100mL MB+) 100 ML 330 MG IV (10:07)
[2025-05-22] MEDS: Meropenem 500 MG in 0.9% Normal Saline (50mL MB+) 50 ML 100 MG IV (10:08)
[2025-05-22] MEDS: levETIRAcetam IV 1,500 MG in 0.9% Normal Saline (100mL Bag) 100 ML 460 MG IV (10:30)
--- NOTE | 2025-05-22 10:34 | WOUNDNOTE ---
In to assess the ostomy appliance that had been placed over the fistula site to the abdomen. small amount of clear yellow fluid noted. tube feed not currently running. James button dressing is D&I at this time. will assess sacral/ischial wounds with Dr Ruiz.
--- NOTE | 2025-05-22 11:32 | CASEMGMT ---
Tertiary Insurance review for hospitals In-network with MEDICAID insurance if transfer is recommended is as follows: [facility], [facility], [place], [facility], [facility], [facility], , [place], [facility], [facility], and [place]. Gabby Rodriguez, Discharge Planning Asst.
--- NOTE | 2025-05-22 11:40 | PN.SURG_ITS ---
Subjective Subjective Patient seen this morning in ICU with Amalia Rainey RN with patient's foster mother at bedside. Overnight patient was transferred from PCU to ICU for acute respiratory failure and intubation was attempted several times however was unsuccessful. She continues on Bipap and repeat ABGs show slight improvment. Patient is is pending likely dialysis. Objective Data Objective Data Vital Signs: Vital Signs Temp Pulse Resp BP Pulse Ox O2 Del Method O2 Flow Rate 98.7 F 98 20 H 113/74 100 Bi-pap 2 05/22/25 11:00 05/22/25 11:00 05/22/25 11:00 05/22/25 11:00 05/22/25 11:00 05/22/25 11:00 05/22/25 00:01 FiO2 35 05/22/25 11:00 Oxygen Flow Rate (L/min) 2 Oxygen Delivery Method Bi-pap Weight: 90 lb 6.4 oz Body Mass Index (BMI) 21.8 Intake & Output: Intake and Output for Last 24 Hours 05/20/25 05/21/25 05/22/25 23:59 23:59 23:59 Intake Total 750 / 750 2507.00 / 2507.00 283.75 / 283.75 Output Total 600 / 720 140 / 140 Balance 750 / 750 1907.00 / 1787.00 143.75 / 143.75 Lab / Micro Data Attestation: I reviewed the patient's lab results. 05/22/25 05:05 05/22/25 05:05 Labs: Laboratory Results - last 24 hr 05/22/25 05:05: WBC 12.8 H, RBC 3.77 L, Hgb 10.4 L, Hct 35.1 L, MCV 93.1, MCH 27.6, MCHC 29.6 L, RDW Std Deviation 52.8 H, RDW Coeff of Chad 15.4 H, Plt Count 276, MPV 10.4, Immature Gran % (Auto) 3.400 H, Neut % (Auto) 78.9 H, Lymph % (Auto) 5.3 L, [place] % (Auto) 11.1 H, Eos % (Auto) 0.5, Baso % (Auto) 0.8, A bsolute Neuts (auto) 10.1 H, Absolute Lymphs (auto) 0.68 L, Nucleated RBC % 0, S odium 148 H, Potassium 3.8, Chloride 107, Carbon Dioxide 24.6, Anion Gap 17 H, B UN 77 H, Creatinine 4.26 H, Estim Creat Clear Calc 11.93 L, Est GFR (MDRD) Non- Af 13 L, BUN/Creatinine Ratio 18.1, Glucose 175 H, Calcium 8.1, NT pro BNP II 4474 H, Random Vancomycin 61.4 H Micro: Microbiology 05/20/25 22:30 Ulcer, Decubitus - Buttock Gram Stain - Final 05/20/25 22:30 Ulcer, Decubitus - Buttock Wound Culture - Preliminary Gram negative juan pablo GNR lactose validation intern 05/20/25 18:05 Urine Catheter - Catheter Urine Culture - Preliminary Mixed Gram Pos & Gram Neg Org 05/21/25 01:25 Nasal Secretion MRSA (PCR) - Final 05/21/25 00:20 Mucosa - Nasopharyngeal Respiratory Panel (PCR) - Final 05/20/25 22:17 Wound - Buttock Skin and Soft Tissue MRSA/MSSA (PCR - Final ABG Data ABG results: ABG 05/22/25 05/22/25 05/22/25 01:15 02:53 07:13 Specimen Type ART ART ART Sample Site R Radial L Radial R Radial pH 7.07 L* 7.13 L* 7.20 L Bicarbonate Actual 29.6 H 28.6 H 30.8 H Total CO2 33 31 33 Base Excess -1 -1 3 H O2 Saturation 93 L 98 94 L O2 % 50.0 45.0 35.0 ABG pCO2 102.4 H* 86.5 H* 79.4 H* ABG pO2 96 137 H 88 Toi Test Positive Positive Positive Respiration Rate 20 O2 Delivery Device Venti Mask BiPAP BiPAP Vent Mode Not entered Not entered AC Crit Call To/Read Back Yes Yes Yes Blood Gas Notified Whom Dr. Saadia koch Blood Gas Notified Time 01:18:27 02:55:18 07:15:03 Clinical Comments 22/7 cmH2O 20/03 Radiography Diagnostic Testing: Radiology Impression Chest X-Ray 05/22/25 07:10 IMPRESSION: Infiltrate throughout the left lung is not excluded. [facility] Rhythm Strip Rhythm Strip: Sinus Rhythm Rate: 97 Ectopy: None Physical Exam Narrative Afebrile, eyes open spontaneously, Bipap in place. Nonverbal at baseline Scoliotic deformity with contractures in all extremities with muscle wasting noted Right ischium wound bed is clean down to bone. New dakin soaked dressing placed with ABD pad and dressing overlying. Assessment & Plan Assessment/Plan (1) Decubitus ulcer of ischial area: (2) Osteomyelitis of pelvic region: PLAN: Plan Pressure offloading bed ordered however was malfunctioning, currently in normal bed. q 2hour turns with nursing Dakins wet-to-dry dressings twice daily to the right ischial wound. Agree with ID consultation. 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
--- NOTE | 2025-05-22 12:42 | PN.RENAL_ITS ---
Subjective Subjective events noted Objective Data Objective Data Vital Signs: Vital Signs Temp Pulse Resp BP Pulse Ox O2 Del Method O2 Flow Rate 98.4 F 97 18 110/79 100 Bi-pap 2 05/22/25 12:00 05/22/25 12:00 05/22/25 12:00 05/22/25 12:00 05/22/25 12:00 05/22/25 12:00 05/22/25 00:01 FiO2 35 05/22/25 12:00 Oxygen Flow Rate (L/min) 2 Oxygen Delivery Method Bi-pap Weight: 41.005 kg Body Mass Index (BMI) 21.8 Intake & Output: Intake and Output for Last 24 Hours 05/20/25 05/21/25 05/22/25 23:59 23:59 23:59 Intake Total 750 / 750 2507.00 / 2507.00 283.75 / 283.75 Output Total 600 / 720 140 / 140 Balance 750 / 750 1907.00 / 1787.00 143.75 / 143.75 Lab / Micro Data 05/22/25 05:05 05/22/25 05:05 Labs: Laboratory Results - last 24 hr 05/22/25 05:05: WBC 12.8 H, RBC 3.77 L, Hgb 10.4 L, Hct 35.1 L, MCV 93.1, MCH 27.6, MCHC 29.6 L, RDW Std Deviation 52.8 H, RDW Coeff of Chad 15.4 H, Plt Count 276, MPV 10.4, Immature Gran % (Auto) 3.400 H, Neut % (Auto) 78.9 H, Lymph % (Auto) 5.3 L, [place] % (Auto) 11.1 H, Eos % (Auto) 0.5, Baso % (Auto) 0.8, A bsolute Neuts (auto) 10.1 H, Absolute Lymphs (auto) 0.68 L, Nucleated RBC % 0, S odium 148 H, Potassium 3.8, Chloride 107, Carbon Dioxide 24.6, Anion Gap 17 H, B UN 77 H, Creatinine 4.26 H, Estim Creat Clear Calc 11.93 L, Est GFR (MDRD) Non- Af 13 L, BUN/Creatinine Ratio 18.1, Glucose 175 H, Calcium 8.1, NT pro BNP II 4474 H, Random Vancomycin 61.4 H Micro: Microbiology 05/20/25 22:30 Ulcer, Decubitus - Buttock Gram Stain - Final 05/20/25 22:30 Ulcer, Decubitus - Buttock Wound Culture - Preliminary Gram negative juan pablo GNR lactose engineering consultant 05/20/25 18:05 Urine Catheter - Catheter Urine Culture - Preliminary Mixed Gram Pos & Gram Neg Org 05/21/25 01:25 Nasal Secretion MRSA (PCR) - Final 05/21/25 00:20 Mucosa - Nasopharyngeal Respiratory Panel (PCR) - Final 05/20/25 22:17 Wound - Buttock Skin and Soft Tissue MRSA/MSSA (PCR - Final ABG Data ABG results: ABG 05/22/25 05/22/25 05/22/25 01:15 02:53 07:13 Specimen Type ART ART ART Sample Site R Radial L Radial R Radial pH 7.07 L* 7.13 L* 7.20 L Bicarbonate Actual 29.6 H 28.6 H 30.8 H Total CO2 33 31 33 Base Excess -1 -1 3 H O2 Saturation 93 L 98 94 L O2 % 50.0 45.0 35.0 ABG pCO2 102.4 H* 86.5 H* 79.4 H* ABG pO2 96 137 H 88 Toi Test Positive Positive Positive Respiration Rate 20 O2 Delivery Device Venti Mask BiPAP BiPAP Vent Mode Not entered Not entered AC Crit Call To/Read Back Yes Yes Yes Blood Gas Notified Whom Dr. Saadia koch Blood Gas Notified Time 01:18:27 02:55:18 07:15:03 Clinical Comments 22/7 cmH2O 20/03 Radiography Diagnostic Testing: Radiology Impression Chest X-Ray 05/22/25 07:10 IMPRESSION: Infiltrate throughout the left lung is not excluded. Reading [facility] Rhythm Strip Rhythm Strip: Sinus Rhythm Rate: 97 Ectopy: None Physical Exam Narrative no obvious distress no pallor no icterus no JVD s1s2 no murmurs lungs clear abdomen soft no organomegaly Assessment & Plan Assessment/Plan (1) DAE (acute kidney injury): PLAN: Baseline creatinine normal about 0.3. CT abdomen without any hydronephrosis. Urine analysis will probably not be reliable due to chronic indwelling Myles catheter. She has been on vancomycin and Zosyn for about 3 weeks now for her decubitus ulcer. Random vancomycin level came back fairly high at 88. Likely cause of DAE. Presumably ATN. Potassium is okay. Cr is worse. with her body muscle mass, this is close to cr of 6-7 for regular person. may need dialysis. discussed with mother at bedside. she is adamant about full code, full care including dialysis etc. zahida Gomez. she also has EC fistula, decubitus ulcer, osteo. given her body anatomy i dont think I will be able to place a dialysis line. she will need vascular surgery and flouro for placement and even then I am not sure if its feasible. Mother tells me that she had hard time running infusion with a picc so not sure if her venous system will accomodate a dialysis catheter given complicated anatomy and multiple ongoing issues I think its better if she gets transferred to tertiary care facility with dual adult/pediatric experience. discussed with mother at bedside. she is ok with [facility] zahida Gomez.
--- NOTE | 2025-05-22 14:24 | CASEMGMT ---
Discharge Planning A list of HH providers including quality and resource use data and consistent with the patient's preferred geographic region, medical needs, and insurance network was created in [employer].? This list was provided to the SW. Gabby Rodriguez Discharge Planning Asst.
--- NOTE | 2025-05-22 15:15 | CASEMGMT ---
Social Work SW met w/pt's mother/guardian again regarding home health, palliative care. SW gave pt's mother a list of home health agencies, suggested to pt's mother this may be a way to help get the wound care supplies covered as per wound RN Amalia. SW provided the list from [facility] to her. SW also provided to pt's mother information on palliative care from [facility] website. SW spoke w/pt's mother further on how pt ended up at [facility] and in this hospital. Pt's mother explained she was getting wound care elsewhere, and the doctor left. There was a gap in time for pt seeing a physician/[facility] due to this and in the interim pt's wound got worse to where it is now. Pt's mother explained it was much smaller before this gap in medical care. Pt's mother researched other wound healing centers and found the one here, started bring her here. She brought pt to this hospital since pt is coming to our wound healing center. Pt is getting transferred to [facility]. SW let pt's mother know that she can follow up at [facility] for referral to [facility] and for referral to palliative should she decide to move forward with this. MARGARITA called pt's CM Cynthia John, let her know pt is getting transferred to [facility]. MARGARITA also let Cynthia know that after speaking w/pt's mother, SW has less concerns about pt's care at home and does feel that her care is adequate at this time. RUTH Armendariz
--- NOTE | 2025-05-22 15:33 | PCM.DC.SUM ---
Providers Date of Admission: 05/20/25 Date of Discharge: 05/22/25 Primary Care Physician: Dr. Kelly Goode MD Consultations 05/20/25 23:24 Consult: Infectious Disease Routine Consulting Provider: Srini Krishnamurthy Reason for Consult: Complicated UTI, decub wound/chronic osteo EMERGENT Consult: No MD Notified: Yes Date Notified: 05/21/25 Time Notified: 06:48 Method of Notification: Text Consult: Nephrology Routine Consulting Provider: Macario Funez Reason for Consult: DAE, anuric EMERGENT Consult: No Notified: Yes Date Notified: 05/21/25 Time Notified: 06:51 Method of Notification: Answering Service 05/21/25 01:45 Consult: Onc/Wound/ship's pilot Routine Comment: 05/21/25 08:04 Consult: Inpatient Palliative Care Routine Consulting Provider: Gay Levin Reason for Consult: Multiple comorbidities/poor QOL EMERGENT Consult: No MD Notified: Yes Date Notified: 05/21/25 Time Notified: 08:04 Method of Notification: via computer notification 05/21/25 08:13 Consult: Plastic Surgery Routine Consulting Provider: Srini Ruiz Reason for Consult: wound EMERGENT Consult: No Notified: Yes Date Notified: 05/21/25 Time Notified: 08:14 Method of Notification: Verbal 05/22/25 01:34 Consult: Forest Management Professor / Pulmonary Medicine Routine Consulting Provider: Intensivists/Pulmonary Med Reason for Consult: Mechanical Ventilator EMERGENT Consult: No Notified: Yes Date Notified: 05/22/25 Time Notified: 06:21 Method of Notification: Text Reason For Visit: ANURIC, DAE,UTI,HYPERK Diagnosis Discharge Diagnosis (1) DAE (acute kidney injury): Status: Acute Code(s): N17.9 - Acute kidney failure, unspecified Medications at Discharge Home Medications acetaminophen 325 mg tablet (Aphen) 325 mg PO Q6H PRN fever or pain 03/14/25 albuterol (refill) 90 mcg/actuation aerosol inhaler 90 mcg inhalation PRN 03/14/25 baclofen 50 mcg/mL intrathecal solution 50 mcg intrathecal Q24H 03/14/25 diazepam (Valtoco) 15 mg intranasal Q4H PRN seizure activity 03/14/25 diazepam 2 mg tablet 2 mg PO DAILY 03/14/25 fluconazole 100 mg tablet (Diflucan) 100 mg PO Q72H 03/14/25 fluticasone propionate 50 mcg/actuation nasal spray,suspension (Aller-Kenny) 2 spray intranasal DAILY PRN nasal congestion 03/14/25 ibuprofen 200 mg tablet (IBU-200) 200 mg PO Q8H PRN fever or pain 03/14/25 levetiracetam 100 mg/mL oral solution 1,500 mg PO Q12H 03/14/25 loratadine 10 mg tablet 10 mg PO DAILY 03/14/25 medroxyprogesterone 150 mg/mL intramuscular suspension (Depo-Provera) 150 mg IM QMONTH 03/14/25 omeprazole 40 mg capsule,delayed release 40 mg PO DAILY 03/14/25 polyethylene glycol 3350 17 gram/dose oral powder (ClearLax) 17 g PO DAILY PRN constipation 03/14/25 promethazine 12.5 mg rectal suppository 12.5 mg GA Q6H PRN nausea 03/14/25 singular 10 mg G-tube DAILY 03/14/25 tramadol 50 mg tablet 50 mg PO DAILY PRN pain 03/14/25 lamotrigine 150 mg tablet 150 mg PO BID 05/20/25 Hospital Course Operations None Procedures - (CT abdomen/pelvis/chest x-ray/attempted intubation) Summary of Care Provided Minutes Spent on Discharge: 45 Hospital Course: Patient is a 35-year-old female with a history of spastic quadriplegia and nonverbal at baseline who had been being treated for a chronic sacral pressure ulcer with chronic osteomyelitis via Zosyn and vancomycin as an outpatient. She was brought to the emergency department [facility] on 05/20/2025 due to decreased urine output. She lives at home with her primary caregiver her adoptive mother who is reportedly a former RN. Vital signs on presentation showed a temperature of 97.7, heart rate 89, respiratory rate 16, blood pressure was 102/74 and pulse ox was 100% on 2 L nasal cannula. CBC showed a mild leukocytosis at 13.2 and a mild chronic stable anemia. Her BMP showed an elevated serum creatinine and BUN at 3.12 and 78 respectively (baseline 0.2-0.3) and hyperkalemia potassium 6.0. Serum bicarb and anion gap were not elevated. UA showed cloudy urine with 100 of protein, occult blood at 250, negative nitrites leuk esterase and 500 and RBCs with 3+ bacteria however the patient has chronic Myles. CT of the abdomen pelvis showed severe chronic right sided ischial decubitus ulcer containing bony cortex consistent with osteomyelitis. Air-fluid levels within portion of the colon, soft tissue thickening at the anorectal junction and irregularity at the posterior skin surface along the anus extending anteriorly and inferiorly. In the emergency department she was given Tylenol for her G-tube, Cathflo for her PICC in her left upper extremity as flow was problematic, albuterol, IV fluids, dextrose, insulin and Lamictal x 1 down her G-tube as well as Keppra 1500 mg x 1 down her G-tube. 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 Unfortunately this was not commented on her CAT scan and the plan was to perform a contrasted CAT scan when she was more stable. We did have concerns that her fistula was preventing adequate absorption of nutrition and medications. This was discussed with her mother. She did develop some seizure-like activity and we wanted to give Ativan IV to ensure absorption however the mother refused and insisted we give Valium 2 mg via her G-tube. We did explain that this was likely not going to benefit her but she stated this how she always does not and she tolerates it the best. She adamantly refused any other medication be given. Valium 2 mg was given at that time. Nephrology was consulted. Random Vanco level was 88. Nephrology feels this is likely vancomycin induced kidney injury. Unfortunately overnight on 05/21 to 05/22/2025 the email marketing processor was called for worsening respiratory status. An ABG was done and showed hypoxic and hypercapnic respiratory failure that was acute in nature. Her initial pH was 7.0 with improvement after BiPAP to 7.2 on the a.m. of 05/22/2025. Intubation was attempted by the email marketing processor however failed likely related to complicated anatomy. Chest x-ray is markedly abnormal with chronic findings. She does have, crackles at the bases likely related to fluid retention due to decreased urine output. Unfortunately, her kidney function has not improved. I did discuss the case with nephrology and they are recommending dialysis however we all feel that access will be significantly problematic and interventional radiology needs to be on backup in case access is not able to be provided. She does not require acute emergent dialysis at this time but with there is concern she could get to that point as her renal function is not improving and was 4.28 at the time of discharge. We do suspect her respiratory distress was multifactorial with uremia, decreased medication clearance, and restrictive lung disease mediated. Palliative care and hospice was consulted to discuss overall goals of care with the mother and the mother was adamant that she wanted to proceed with aggressive care. Given her desire for ongoing aggressive management, needs for possible interventional radiology to assist with vascular access for dialysis and this enterocutaneous fistula which appears to be inhibiting medication and nutritional absorption transfer was recommended. Her mother requested [facility]. I called the transfer center and we were able to obtain transfer on 05/22/2025. She was transferred in stable but critical condition to the ICU at [facility] on the same date. She was maintained on IV antibiotics with meropenem and plans for transition to daptomycin per infectious disease once her vancomycin level had normalized. Vanco level at the time of discharge was 66. This was a random level. EEG was pending read at the time of discharge Discharge diagnoses: DAE secondary to ATN with suspected vancomycin toxicity Acute hyperkalemia-resolved Acute hypoxic and hypercapnic respiratory failure-multifactorial Mixed metabolic and respiratory acidosis Hypernatremia Hyperglycemia Chronic sacral pressure ulcer/chronic osteomyelitis Seizure disorder Leukocytosis Chronic urinary incontinence Chronic fecal incontinence Spastic quadriplegic cerebral palsy Severe disability-physical and cognitive Chronic normocytic anemia Severe malnutrition Chronic allergic rhinitis GERD Physical Exam Const alert and no apparent distress; Negative for oriented x3, average body habitus, no limitations, healthy appearing or well nourished Constitutional Narrative: Sleepy, middle-aged, white female, severely contracted spastic quadriplegic, lying in bed on BiPAP, appears comfortable at this time, does not look toxic, nursing at bedside HEENT head/scalp atraumatic and moist oral mucous membranes HEENT Narrative: BiPAP in place Eyes conjunctivae normal Eyes Narrative: No scleral icterus Neck supple Neck Narrative: Trachea midline Resp no retractions, no use of accessory muscles and No clear to auscultation bilaterally Resp Narrative: Diffusely diminished with crackles at bases bilaterally, on BiPAP with no signs of respiratory distress Auscultation: crackles; Negative for rhonchi or wheezes Cardio regular rhythm, S1 normal heart sound, S2 normal heart sound, no murmurs, no rub, no gallops and no clicks Cardio Narrative: Mild tachycardia GI normal to inspection, nondistended, normoactive bowel sounds and soft to palpation GI Narrative: PEG tube in place, patient appears to have an enterocutaneous fistula draining tube feed when tube feeds are running Extremity Extremity Narrative: Chronic contractions noted bilateral upper and lower extremities, trace bilateral lower extremity edema, pedal pulses and radial pulses are 2+, no cyanosis or clubbing Skin no petechiae and no mottling Skin Narrative: Skin is pale, large unstageable sacral pressure ulcer Neuro Neuro Narrative: Intermittently opens eyes spontaneously but no significant response to verbal stimuli, was agitated earlier and yelling out but none coherently Speech: Negative for speech normal Psych Psych Narrative: Appears calm at this time Weight / BMI Weight Weight: 41.005 kg Body Mass Index (BMI) 21.8 ABG / Lab / Microbiology Data 05/22/25 05:05 05/22/25 05:05 Laboratory: Laboratory Results - last 24 hr 05/22/25 05:05: WBC 12.8 H, RBC 3.77 L, Hgb 10.4 L, Hct 35.1 L, MCV 93.1, MCH 27.6, MCHC 29.6 L, RDW Std Deviation 52.8 H, RDW Coeff of Chad 15.4 H, Plt Count 276, MPV 10.4, Immature Gran % (Auto) 3.400 H, Neut % (Auto) 78.9 H, Lymph % (Auto) 5.3 L, Warren % (Auto) 11.1 H, Eos % (Auto) 0.5, Baso % (Auto) 0.8, Absolute Neuts (auto) 10.1 H, Absolute Lymphs (auto) 0.68 L, Nucleated RBC % 0, Sodium 148 H, Potassium 3.8, Chloride 107, Carbon Dioxide 24.6, Anion Gap 17 H, BUN 77 H, Creatinine 4.26 H, Estim Creat Clear Calc 11.93 L, Est GFR (MDRD) Non-Af 13 L, BUN/Creatinine Ratio 18.1, Glucose 175 H, Calcium 8.1, NT pro BNP II 4474 H, Random Vancomycin 61.4 H Microbiology: Microbiology 05/20/25 22:30 Ulcer, Decubitus - Buttock Gram Stain - Final 05/20/25 22:30 Ulcer, Decubitus - Buttock Wound Culture - Preliminary Gram negative juan pablo GNR lactose advertising sales consultant 05/20/25 18:05 Urine Catheter - Catheter Urine Culture - Preliminary Mixed Gram Pos & Gram Neg Org 05/21/25 01:25 Nasal Secretion MRSA (PCR) - Final 05/21/25 00:20 Mucosa - Nasopharyngeal Respiratory Panel (PCR) - Final 05/20/25 22:17 Wound - Buttock Skin and Soft Tissue MRSA/MSSA (PCR - Final ABG: ABG 05/22/25 05/22/25 05/22/25 01:15 02:53 07:13 Specimen Type ART ART ART Sample Site R Radial L Radial R Radial pH 7.07 L* 7.13 L* 7.20 L Bicarbonate Actual 29.6 H 28.6 H 30.8 H Total CO2 33 31 33 Base Excess -1 -1 3 H O2 Saturation 93 L 98 94 L O2 % 50.0 45.0 35.0 ABG pCO2 102.4 H* 86.5 H* 79.4 H* ABG pO2 96 137 H 88 Toi Test Positive Positive Positive Respiration Rate 20 O2 Delivery Device Venti Mask BiPAP BiPAP Vent Mode Not entered Not entered AC Crit Call To/Read Back Yes Yes Yes Blood Gas Notified Whom Dr. Saadia tidwell Blood Gas Notified Time 01:18:27 02:55:18 07:15:03 Clinical Comments 22/7 cmH2O 227 Radiography Diagnostic Testing: Radiology Impression Chest X-Ray 05/22/25 07:10 IMPRESSION: Infiltrate throughout the left lung is not excluded. Reading Location: [facility] Instructions DC O2, CPAP, BIPAP Needs Home O2 Discharge instructions: No Meaningful Use Info Meaningful Use Meaningful Use Diagnoses (Choose all that apply): None applicable Discharge Plan Admission Admit Date/Time: 05/20/25 21:32 Primary Reason for Your Visit: Decreased urine output Attending Provider: Jenifer Gomez Primary Care Provider: Kelly Goode Consulting Providers: Darleen Garcias; Srini Krishnamurthy; Macario Funez; Gay Levin; Srini Ruiz; Augusto Ram; Efrain Ramos; Isidro Lr; Giovani Tidwell; Asa Lambert; Abhijeet Childs; Juan Carlos Cleary; Dianna Unger; Daniel Bass; Dao Colorado; Ronal Shannon; Aida Joya; Emilio Santana; Courtney Estes; Wili,Kwasi; Norbert Ivy; Jaylen Escalante; Caesar,Brenton; Nadia Morales; Ricardo Moreno; Johnny Kohli; Flavio Hull; Earnest De Leon; Melecio Ortez; Kelsie Doyle; Hayley Helms; Lidya Lechuga; Jesus Crawford; Enzo Raymundo; Jase Blood; BISI THACKER; Gloria Corral; Roxana Latham; Donell Holman; Em Alvarez Discharge Orders/Prescriptions Prescriptions: No Action Valtoco 15 mg/2 spray (7.5/0.1mL x 2) spray,non-aerosol 15 mg intranasal Q4H PRN (Reason: seizure activity) Rx Instructions: administer 1 spray in each nostril albuterol (refill) 90 mcg/actuation aerosol 90 mcg inhalation PRN baclofen 50 mcg/mL solution 50 mcg intrathecal Q24H Rx Instructions: give day 1 of course of therapy ibuprofen [IBU-200] 200 mg tablet 200 mg PO Q8H PRN (Reason: fever or pain) acetaminophen [Aphen] 325 mg tablet 325 mg PO Q6H PRN (Reason: fever or pain) singular 10 mg G-tube DAILY diazepam 2 mg tablet 2 mg PO DAILY levetiracetam 100 mg/mL solution 1,500 mg PO Q12H promethazine 12.5 mg suppository 12.5 mg GA Q6H PRN (Reason: nausea) omeprazole 40 mg capsule,delayed release(DR/EC) 40 mg PO DAILY fluticasone propionate [Aller-Kenny] 50 mcg/actuation spray,suspension 2 spray intranasal DAILY PRN (Reason: nasal congestion) Rx Instructions: administer into each nostril tramadol 50 mg tablet 50 mg PO DAILY PRN (Reason: pain) medroxyprogesterone [Depo-Provera] 150 mg/mL suspension 150 mg IM QMONTH Rx Instructions: every 3 months loratadine 10 mg tablet 10 mg PO DAILY polyethylene glycol 3350 [ClearLax] 17 gram/dose powder 17 g PO DAILY PRN (Reason: constipation) fluconazole [Diflucan] 100 mg tablet 100 mg PO Q72H lamotrigine 150 mg tablet 150 mg PO BID Referrals / Follow Up: Kelly Goode MD [Primary Care Provider, Family Practice] Disposition Disposition (needs filled in before D/C Order can be placed): Acute Care Hospital Charges/Coding Visit Charges Inpatient E&M: 36326 Disch Hosp >30min
== END 2025-05-22 19:30 | disposition short-term general hospital (02) | DRG 469 ==
LOC: ED 16:35 → PCU 23:04 → ICU 05-22 03:10
PROVIDERS: Admitting Provider Family Medicine; Emergency Provider Emergency Medicine; PCP Family Medicine; Visit Provider Internal Medicine
DX: N17.0 Acute kidney failure with tubular necrosis (principal); J96.01 Acute respiratory failure with hypoxia; J96.02 Acute respiratory failure with hypercapnia; L89.154 Pressure ulcer of sacral region, stage 4; E43 Unspecified severe protein-calorie malnutrition; M46.28 Osteomyelitis of vertebra, sacral and sacrococcygeal region; L89.314 Pressure ulcer of right buttock, stage 4; E87.4 Mixed disorder of acid-base balance; G80.0 Spastic quadriplegic cerebral palsy; G40.909 Epilepsy, unspecified, not intractable, without status epilepticus; D64.9 Anemia, unspecified; Z93.1 Gastrostomy status; E87.5 Hyperkalemia; K21.9 Gastro-esophageal reflux disease without esophagitis; E87.29 Other acidosis; E87.0 Hyperosmolality and hypernatremia; J30.9 Allergic rhinitis, unspecified; R15.9 Full incontinence of feces; T88.4XXA Failed or difficult intubation, initial encounter; B96.1 Klebsiella pneumoniae [K. pneumoniae] as the cause of diseases classified elsewhere; B96.5 Pseudomonas (aeruginosa) (mallei) (pseudomallei) as the cause of diseases classified elsewhere; F72 Severe intellectual disabilities; T36.8X5A Adverse effect of other systemic antibiotics, initial encounter; X58.XXXA Exposure to other specified factors, initial encounter; N39.45 Continuous leakage; R73.9 Hyperglycemia, unspecified; Z68.21 Body mass index [BMI] 21.0-21.9, adult; Z79.01 Long term (current) use of anticoagulants; Z79.2 Long term (current) use of antibiotics; Z79.899 Other long term (current) drug therapy
CPT/HCPCS: 36415; 36600; 51702; 71045; 74176; 80048; 80053; 80202; 81001; 82570; 82803; 82962; 83735; 83880; 84100; 84300; 85025; 87040; 87070; 87077; 87086; 87088; 87184; 87186; 87205; 87633; 87640; 87641; 93005; 94002; 94640; 94660; 94762; 95819; 97802; 97803; 99213; 99252; 99285; J2185; J2997; A4216; G0463

== ENCOUNTER 2025-05-21 10:39 | Outpatient (CLI) | payer MEDICAID, SELFPAY | END 2025-05-21 23:59 | disposition home or self-care (01) | LOC: MEDOUTP 10:39 | PROVIDERS: PCP Family Medicine; Referring Provider Internal Medicine Infectious Disease; Visit Provider Internal Medicine Infectious Disease | DX: M86.9 Osteomyelitis, unspecified (principal) ==